=== PATIENT | male | born 1950 | race Caucasian/White ===

== ENCOUNTER → 2017-10-26 07:46 | Outpatient (CLI) | payer MEDICARE, SELFPAY ==
--- NOTE | 2017-10-26 07:47 | CT_ITS ---
STUDY: CT LEFT SHOULDER REASON FOR EXAM: Male, 67 years old. Left-sided clavicular pain following a recent fall. RADIATION DOSAGE (If Supplied By Facility): CTDIvol = ( 27.8 ) mGy, DLP = ( 821.48 ) mGycm TECHNIQUE: The patient was scanned in a multi detector CT scanner. High resolution transaxial imaging was performed without the administration of intravenous contrast material. Sagittal and coronal images were reconstructed. Individualized dose optimization techniques were used for this CT. COMPARISON: None. FINDINGS: There is moderate osteoarthritis, with moderate articular joint space narrowing and moderate osteoarthritic spurring. There is evidence of a soft tissue mass measuring 4 cm x 3.6 cm at the level of the glenohumeral joint with evidence of bony destruction. There is a soft tissue mass in the anterior superior aspect of the scapula causing erosion. This may represent a metastatic deposit or plasmocytoma. A similar-appearing soft tissue mass is seen along the inferior aspect of the left scapula in the region of the spine. There is also evidence of a 1.2 cm cystic change in the lateral portion of the left clavicle. There is a 1.9 cm x 1.5 cm lucency in the superior medial anterior aspect of the proximal humeral metaphysis. This may represent either a bony cyst or possible lytic lesion. There is also evidence of a 2.3 cm x 1.3 cm x 1.7 cm soft tissue density within the medulla of the proximal diaphyseal shaft of the left humerus. There is a endosteal erosion along the medial aspect. A neoplastic process should be ruled out. Normal coracoid process. Nondisplaced fracture along the medial third of the left clavicle. There is erosion of the cortical bone with a soft tissue mass within the a pathological fracture should be ruled out. There is moderate osteoarthritis with articular joint space narrowing and with osteoarthritic spurring. There is a Type II morphology (curved), with a neutral orientation. CT/Extremity Upper without Contra IMPRESSION: Multiple findings as described. Multiple myeloma or metastatic disease should be ruled out. Correlation with a total body bone scan is recommended. Electronically Signed: Luis Cutler MD at 10:18 EST Tel [phone], Service support ,
--- NOTE | 2017-10-26 07:50 | CT_ITS ---
STUDY: CT LEFT SHOULDER REASON FOR EXAM: Male, 67 years old. Left-sided clavicular pain following a recent fall. RADIATION DOSAGE (If Supplied By Facility): CTDIvol = ( 27.8 ) mGy, DLP = ( 821.48 ) mGycm TECHNIQUE: The patient was scanned in a multi detector CT scanner. High resolution transaxial imaging was performed without the administration of intravenous contrast material. Sagittal and coronal images were reconstructed. Individualized dose optimization techniques were used for this CT. COMPARISON: None. FINDINGS: There is moderate osteoarthritis, with moderate articular joint space narrowing and moderate osteoarthritic spurring. There is evidence of a soft tissue mass measuring 4 cm x 3.6 cm at the level of the glenohumeral joint with evidence of bony destruction. There is a soft tissue mass in the anterior superior aspect of the scapula causing erosion. This may represent a metastatic deposit or plasmocytoma. A similar-appearing soft tissue mass is seen along the inferior aspect of the left scapula in the region of the spine. There is also evidence of a 1.2 cm cystic change in the lateral portion of the left clavicle. There is a 1.9 cm x 1.5 cm lucency in the superior medial anterior aspect of the proximal humeral metaphysis. This may represent either a bony cyst or possible lytic lesion. There is also evidence of a 2.3 cm x 1.3 cm x 1.7 cm soft tissue density within the medulla of the proximal diaphyseal shaft of the left humerus. There is a endosteal erosion along the medial aspect. A neoplastic process should be ruled out. Normal coracoid process. Nondisplaced fracture along the medial third of the left clavicle. There is erosion of the cortical bone with a soft tissue mass within the a pathological fracture should be ruled out. There is moderate osteoarthritis with articular joint space narrowing and with osteoarthritic spurring. There is a Type II morphology (curved), with a neutral orientation. CT/Coronals Sag Multi Obl 3-D Rec IMPRESSION: Multiple findings as described. Multiple myeloma or metastatic disease should be ruled out. Correlation with a total body bone scan is recommended. Electronically Signed: Luis Cutler MD at 10:18 EST Tel [phone], Service support ,
== END ==
PROVIDERS: Family Provider Family Medicine; PCP Family Medicine; Visit Provider Orthopaedic Surgery
DX: S42.123A Displaced fracture of acromial process, unspecified shoulder, initial encounter for closed fracture (principal); S42.001A Fracture of unspecified part of right clavicle, initial encounter for closed fracture
CPT/HCPCS: 73200; 76377

== ENCOUNTER → 2017-11-03 07:48 | Outpatient (CLI) | payer MEDICARE, SELFPAY ==
--- NOTE | 2017-11-03 07:50 | NM_ITS ---
CLINICAL: 67-year-old male with reported history of recent traumatic fall and suspected pathologic fracture of the left clavicle. WHOLE BODY 99m Tc MDP RADIONUCLIDE BONE SCINTIGRAPHY COMPARISON: CT of the left shoulder report 10/26/2017, previous whole-body bone scintigraphy study dated 12/17/2015 FINDINGS: Following the intravenous administration of 27.3 mCi of 99m Tc MDP, whole body bone images reveal: 1. Increased radiopharmaceutical concentration is currently identified in the left proximal-mid clavicle, the mid sternum, the left proximal humeral metaphysis, multiple right lateral and posterior ribs, the left posterior 12th rib. 2. Enhanced tracer concentration is visualized in the left wrist, the acromioclavicular and sternoclavicular compartments of the right shoulder, lower cervical spine posteriorly in the midline, the 11th thoracic vertebra posteriorly on the right, third lumbar vertebra posteriorly on the right, fifth lumbar vertebra posteriorly on the left and right, the left knee. 3. The remaining skeletal structures are scintigraphically unremarkable with normal-appearing renal images and urinary bladder activity identified. An increase in uptake is identified in the tibial and femoral components of the presumably asymptomatic right knee arthroplasty most consistent with normal postsurgical change. NM/Bone Scan Whole Body IMPRESSION: 1. The increase in radiopharmaceutical concentration identified in the left proximal-mid clavicle, midsternum, left proximal humeral metaphysis, multiple right and single left chest wall-contiguous to ribs is consistent with trauma-fracture and potential neoplastic infiltration. 2. Degenerative arthritis appears expressed in the left wrist, right shoulder, cervical, thoracic and lumbar spine, the left knee. 3. Overall compared to the previous whole body bone scintigraphy study dated 12/17/2015, the newly identified foci of increased radiopharmaceutical concentration noted in the left clavicle, left proximal humerus, the mid sternum, bilateral ribs likely represent components of trauma-fracture (in the setting of recent traumatic fall) with potential complicating neoplasm (pathologic fracture) a diagnostic consideration. Electronically Signed: Wilner Thompson DO at 10:04 EST Tel , Service support ,
== END ==
PROVIDERS: Family Provider Family Medicine; PCP Family Medicine; Visit Provider Family Medicine
DX: M89.9 Disorder of bone, unspecified (principal)
CPT/HCPCS: 78306

== ENCOUNTER → 2018-05-25 14:21 | Outpatient (CLI) | payer MEDICARE, SELFPAY | LOC: LAB 14:40 → LABSPEC 14:41 | PROVIDERS: Family Provider Family Medicine; PCP Family Medicine; Visit Provider Dentist Oral and Maxillofacial Surgery | DX: Z79.899 Other long term (current) drug therapy (principal) | CPT/HCPCS: 87070; 87075; 87077; 87186; 87205 ==

== ENCOUNTER 2018-09-27 07:00 | Outpatient (RCR) | payer MEDICARE, SELFPAY ==
--- NOTE | 2018-07-23 08:21 | HP.PTEVAL_ITS ---
Patient's Visit Information RONNIE YARBROUGH is a 68 year old M referred to Physical Therapy by SHERRY MART with a diagnosis of Multiple myoloma, spinal stenosis. Date of Evaluation: 07/12/18 Physical Therapist: Chuck Veliz - Visit Plan Frequency: 2-3x /Week Duration: 4-6 Weeks Plan: Verbal OK to per supervising PT for general strengthening and balance training. - Subjective Subjective: Pt. is here today for his initial evaluation with diagnosis of lumbar spine OA and multiple myeloma. Pt. has a history of 2 lumbar fusions L2- L4 and cervical spinal fusion C3-C4. Most recent was lumbar in 2008. Pt. is now recovering from multiple myeloma with recent stem cell treatment requiring a 20day stay in hospital. Pt. reports having increased weakness since getting out of hospital ~2 weeks ago. He has been having increased LBP since hosital stay. Pt. denies N/T in either LE. He has experienced a fall since DC form hospital. Pt. does not use an AD, but reports having balance issues. Pt. has not been able to complete many house hold chores due to fatigue. He is hopeful to increase strength/stability to increase safety with gait and get back to recreational exercises and community activities. - Pain lumbar spine Pain Intensity (Out of 10): 3 Pain Intensity Range: 1, 6 - Objective POSTURE: Pt. has FH posture, rounded shoulders, decreased lumbar lordosis and wide RUPAL. PALPATION: Pt. has tenderness throughout bilateral lumbar erector spinea. Pt. has no pain throughout bilateral LEs. NEURO: Pt. has normal se nsation throughout bilateral LEs. Pt. has 2+ bilateral DTR achilles and patella. Pt. is able to rise on heels and toes without marked weakness, but does require increased balance aid to maintain stability. ROM: lumbar spine: flexion min/nil loss, ext mod loss icnrease NW, SB min/mod loss increase NW, rotation min loss bilat increase NW. HS length- 75% bilaterally. MMT: RLE- ankle PF 4+/5, DF 4/5; knee- ext 4/5, flexion 4/5; hip- flexion 4/5, abd 4/5, ext 4/5. LLE- ankle PF 4+/5, DF 4/5; knee- ext 4/5, flexion 4/5; hip- flexion 4/5, abd 4/5, ext 4/5. Core poor+. GAIT: Pt. ambulates with cane, but has wide RUPAL, bilateral hip ER, he tends to reach out for rodriguez when available and has decreased tempo. Pt. is able to complete stairs, but requires BHR and increased time to complete. Pt. has signs of functional weakness with descending. - Balance Scores Functional Gait Assessment Score: 18 % Disability: 40.0000 - Goals Goal 1:: Pt. to be I with HEP. Goal Time Frame: 4-6 Weeks Goal 2:: Pt. to have increased BLE and core strength by 1/2 grade to increase stability with all functional mobility. Goal Time Frame: 4-6 Weeks Goal 3:: Pt. to ambulate unlimited distances without AD allowing for increase increased community mobility. Goal Time Frame: 4-6 Weeks Goal 4:: Pt. to ambulate without increase in LBP allowing for increased toleranc e to all functional mobility. Goal Time Frame: 4-6 Weeks Goal 5:: Pt. to negotiate 1 flight of steps with 1 HR with reciprocal pattern. Goal Time Frame: 4-6 Weeks Goal 6:: Pt. to resume gym exercises without increase in symptoms. Goal Time Frame: 4-6 Weeks - Rehabilitation Potential Physical Therapy Diagnosis: Pt. presents with generalized weakness after sustaining several weeks in hospital with cancer treatments. Pt. also has a his tory of LBP with multiple surgies. He would benefit from PT to increase BLE and core strength to increase stability with all functional mobility and gait. Rehabilitation Potential: Good - Anticipated Interventions Patient/Client Instruction: Educate patient on: Condition, Plan of Care, Risk Factors, Benefits of Fitness Program For the Purpose of:: To improve decision making, To facilitate caregiver knowledge, To improve self management, To prevent re-injury, To improve ability to perform tasks related to life management, To improve tolerance to ADL's Therapeutic Exercise to Include: Strength training, Power training, Endurance training, Balance training, Coordination, Postural training, Flexibilty training, Gait and locomotor training, Passive ROM, Active ROM, Dynamic Lumbar Stabilization For the Purpose of:: To decrease pain, To increase ROM, To improve nutrient delivery to tissue, To increase oxygenation perfusion, To improve muscle performance and motor function, To improve gait and locomotor functions, To improve health of tissue, To decrease soft tissue restriction, To increase flexibility/ROM, To improve endurance, To improve balance, To improve safety with gait Thank you for the opportunity to evaluate your patient. For Medicare and Medicare HMO plans, please review the plan of care and approve it. It will need to be FAXED BACK to us at [phone] for Medicare purposes. Please let me know if there are questions or concerns regarding this plan of care. Physician Signature: Date:
--- NOTE | 2018-08-23 08:32 | HP.PTREVAL ---
SHERRY MART, It has been my pleasure to treat RONNIE YARBROUGH over the last 10 visits for Multiple myoloma, spinal stenosis. Please see the progress note below for an update on the physical therapy plan of care! Subjective: Pt. reports no new issues. I really think I am getting a lot better. Pt. reports not using AD with gait any more. each day I get better and better.' Pt. was able to out and chop fire wood ove the weekend for a little bit before high levels of fatigue. Objective/Function: Pt. contiues to progess very well with balance, stability and strength. pt. has had no falls since starting PT. Pt. is a very mars working. MMT- RLE- ankle 5/5 throughot; knee- ext 5-/5, flexion 5-/5; hip- flexion 4+/5, abd 4+/5, ext 4+/5. LLE-ankle 5/5 throughot; knee- ext 5-/5, flexion 5-/5; hip- flexion 4+/5, abd 4+/5, ext 4+/5. Core strength- fair-. gait- Pt. is able to ambulate witout AD now. Pt. has normal step length, with slight fwrd flexion. Pt. is able to correct posture with VCing. Pt. is negotiating steps with reciprocal pattern with use of 1 HR without issues. FGA- - increased difficulty with narrow RUPAL. STAIRS: PT. is able to negotiate with 1 HR with reciprocal pattern without LOB, but continues to ahve higher levels of fatigue Plan Plan: Cont. with current POC. FOcus on core stability/balance and progression of endurance. Pt. would benefit from continued PT. to work on the above limitations. Goals Goal 1:: Pt. to be I with HEP. Goal Time Frame: 4-6 Weeks Goal Progress: Goal Met Goal 2:: Pt. to have increased BLE and core strength by 1/2 grade to increase stability with all functional mobility. Goal Time Frame: 4-6 Weeks Goal Progress: Progressing Goal 3:: Pt. to ambulate unlimited distances without AD allowing for increase increased community mobility. Goal Time Frame: 4-6 Weeks Goal Progress: Progressing Goal 4:: Pt. to ambulate without increase in LBP allowing for increased tolerance to all functional mobility. Goal Time Frame: 4-6 Weeks Goal Progress: Progressing Goal 5:: Pt. to negotiate 1 flight of steps with 1 HR with reciprocal pattern. Goal Time Frame: 4-6 Weeks Goal Progress: Goal Met Goal 6:: Pt. to resume gym exercises without increase in symptoms. Goal Time Frame: 4-6 Weeks Goal Progress: Progressing Anticipated Interventions Patient/Client Instruction: Educate patient on: Condition, Plan of Care, Risk Factors, Benefits of Fitness Program For the Purpose of:: To improve decision making, To facilitate caregiver knowledge, To improve self management, To prevent re-injury, To improve ability to perform tasks related to life management, To improve tolerance to ADL's Therapeutic Exercise to Include: Strength training, Power training, Endurance training, Balance training, Coordination, Postural training, Flexibilty training, Gait and locomotor training, Passive ROM, Active ROM, Dynamic Lumbar Stabilization For the Purpose of:: To decrease pain, To increase ROM, To improve nutrient delivery to tissue, To increase oxygenation perfusion, To improve muscle performance and motor function, To improve gait and locomotor functions, To improve health of tissue, To decrease soft tissue restriction, To increase flexibility/ROM, To improve endurance, To improve balance, To improve safety with gait Please do not hesitate to contact me at [phone] by phone or if you have questions or concerns regarding this new plan of care! Sincerely, Chuck Veliz
--- NOTE | 2018-09-27 08:36 | HP.PTREVAL ---
[facility]ERRY MART, It has been my pleasure to treat RONNIE YARBROUGH over the last 16 visits for Multiple myoloma, spinal stenosis. Please see the progress note below for an update on the physical therapy plan of care! Subjective: Pt. arrives today with reports of slight increased in low back pain. I am not sure why. He reports no new changes to activities at home. Pt. does have some pain in Left leg this date. Objective/Function: Pt. tolerated all Pt without adverse reaction. Pt. is back to all functional activities with minmal issues. He does have some pain and occassional leg pain, but with rest is able to manage. Pt. is to continue with HEP as able. MMT: BLE 5-/5 throughout. Core strength- fair. GAIT: slight flexed posture. minimal lateral postural sway. STAIRS: 2 flights with reciprocal pattern without LOB or presence of functional weakness. Plan Plan: Pt. is to trial exercises on own at this point in time and follow up with PT if needed with in 2-3 weeks. If I do not hear from him I will DC his case back to physician. Goals Goal 1:: Pt. to be I with HEP. Goal Time Frame: 4-6 Weeks Goal Progress: Goal Met Goal 2:: Pt. to have increased BLE and core strength by 1/2 grade to increase stability with all functional mobility. Goal Time Frame: 4-6 Weeks Goal Progress: Goal Met Goal 3:: Pt. to ambulate unlimited distances without AD allowing for increase increased community mobility. Goal Time Frame: 4-6 Weeks Goal Progress: Goal Met Goal 4:: Pt. to ambulate without increase in LBP allowing for increased tolerance to all functional mobility. Goal Time Frame: 4-6 Weeks Goal Progress: Progressing Goal 5:: Pt. to negotiate 1 flight of steps with 1 HR with reciprocal pattern. Goal Time Frame: 4-6 Weeks Goal Progress: Goal Met Goal 6:: Pt. to resume gym exercises without increase in symptoms. Goal Time Frame: 4-6 Weeks Goal Progress: Goal Met Anticipated Interventions Patient/Client Instruction: Educate patient on: Condition, Plan of Care, Risk Factors, Benefits of Fitness Program For the Purpose of:: To improve decision making, To facilitate caregiver knowledge, To improve self management, To prevent re-injury, To improve ability to perform tasks related to life management, To improve tolerance to ADL's Therapeutic Exercise to Include: Strength training, Power training, Endurance training, Balance training, Coordination, Postural training, Flexibilty training, Gait and locomotor training, Passive ROM, Active ROM, Dynamic Lumbar Stabilization For the Purpose of:: To decrease pain, To increase ROM, To improve nutrient delivery to tissue, To increase oxygenation perfusion, To improve muscle performance and motor function, To improve gait and locomotor functions, To improve health of tissue, To decrease soft tissue restriction, To increase flexibility/ROM, To improve endurance, To improve balance, To improve safety with gait Please do not hesitate to contact me at [phone] by phone or if you have questions or concerns regarding this new plan of care! Sincerely, Chuck Veliz DPT
--- NOTE | 2018-12-18 09:40 | HP.PT.NRP ---
HP - Discharge Summary (1) - Patient Information RONNIE YARBROUGH was seen in my office for initial evaluation on 07/12/18. The following Plan of Care was established for this patient: Initial Frequency: 2-3x /Week Initial Duration: 4-6 Weeks - Anticipated Interventions Patient/Client Instruction: Educate patient on: Condition, Plan of Care, Risk Factors, Benefits of Fitness Program For the Purpose of:: To improve decision making, To facilitate caregiver knowledge, To improve self management, To prevent re-injury, To improve ability to perform tasks related to life management, To improve tolerance to ADL's Therapeutic Exercise to Include: Strength training, Power training, Endurance training, Balance training, Coordination, Postural training, Flexibilty training, Gait and locomotor training, Passive ROM, Active ROM, Dynamic Lumbar Stabilization For the Purpose of:: To decrease pain, To increase ROM, To improve nutrient delivery to tissue, To increase oxygenation perfusion, To improve muscle performance and motor function, To improve gait and locomotor functions, To improve health of tissue, To decrease soft tissue restriction, To increase flexibility/ROM, To improve endurance, To improve balance, To improve safety with gait This patient was last seen in our office 09/27/18. Pertinent comments regarding their Physical therapy will appear below: Pt. was treated for general debility and back pain after being in hospital for a few week recovering from cancer treatments. Pt. progressed very well. His back pain was improving. He had improved core stability and general strength. Pt. was to follow up with PT after deoing HEP on own for a few weeks. Pt. has not been seen in several weeks and will be DC from PT at this point in time. At this point I will be discontinuing this patient from physical therapy. I would be happy to see this patient again in the future if found appropriate by the physician. Thank you! Chuck Veliz, SOMMER
== END 2018-09-27 19:00 | disposition home or self-care (01) ==
LOC: PT 07:00
PROVIDERS: Family Provider Family Medicine; PCP Family Medicine
DX: C90.00 Multiple myeloma not having achieved remission (principal); M47.9 Spondylosis, unspecified
CPT/HCPCS: 97110; 97162

== ENCOUNTER → 2019-01-02 | Outpatient (CLI) | payer MEDICARE, SELFPAY ==
--- NOTE | 2019-01-02 09:36 | VDLE_ITS ---
Reason For Study: LEG SWELLING RIGHT LEFT CFV is compressible, spontaneous, phasic, GSV is normal. competent and demonstrates normal CFV is compressible, spontaneous, phasic, augmentation. competent, and demonstrates normal GSV is normal. augmentation. FV is compressible, spontaneous, phasic, FV is compressible, spontaneous, phasic, competent and demonstrates normal competent and demonstrates normal augmentation. augmentation. POP V is compressible, spontaneous, phasic, POP V is compressible, spontaneous, phasic, competent and demonstrates normal competent and demonstrates normal augmentation. augmentation. T/P Trunk is compressible. T/P Trunk is compressible. PTV is compressible. PTV is compressible. RT PerV is compressible. LT PerV is compressible. Procedure Exam performed in department. A preliminary report was called and/or faxed to Dr. Goldstein. Interpretation Summary Deep veins of the lower extremities are bilaterally patent and compressible segmentally. There is no evidence of deep vein thrombosis on either side. Valvular competence appears intact within the proximal deep venous systems bilaterally. The greater saphenous veins appear bilaterally patent and compressible segmentally. Ordering Physician: Arianna Goldstein Referring Physician: Arianna Goldstein Performed By: Chrissy Gray RVT
== END | disposition home or self-care (01) ==
LOC: CVS 09:24
PROVIDERS: Family Provider Family Medicine; PCP Family Medicine; Referring Provider Internal Medicine Hematology & Oncology; Visit Provider Internal Medicine Hematology & Oncology
DX: M79.89 Other specified soft tissue disorders (principal); I82.402 Acute embolism and thrombosis of unspecified deep veins of left lower extremity
CPT/HCPCS: 93970

== ENCOUNTER 2019-04-04 09:00 | Outpatient (RCR) | payer MEDICARE, SELFPAY ==
[2017-10-11 09:06] VITALS: BMI 34.4
--- NOTE | 2019-01-02 15:58 | HP.PTEVAL ---
Patient's Visit Information RONNIE YARBROUGH is a 68 year old M referred to Physical Therapy by Amy Cabrera NP-C with a diagnosis of S/P LUMBAR FUSION. Date of Evaluation: 01/02/19 Physical Therapist: Arnold Fofana, PT, Cert MDT, OCS - Visit Plan Frequency: 2x /Week Duration: 4 Weeks Plan: RECOVERING FROM MULTIPLE MYELOMA. S/P REMOVAL OF INSTRUMENTATION,THEN REVISION FUSION 12/10/18. PT POSTURAL EX'S,BLE STRENGTHENING,DLS,LE FLEXABLITY AND STRENGTHENING- HIPS,ENDURANCE GAIT PROGARM - Subjective Findings: This 68 y/o male presents to physical therapy with S/P lumbar fusion. Patient underwent s/p removal of segmental fixation,then reinstrumentation and segmental fixation and L2-S1 on 12/10/[address] Enrique Sue at [facility]. Patient d/c next day with Lumbar Brace and FWW. Patient has been walking at home with fww. Patient recently recovering from Multiple Myeloma last year required extensive treatment and Rehab. Patient has mild pain pain. Denies parathesia/tingling. Patient has edema feet ankles. Denies parathesia/tingling. Patient has difficulty with ADLS' bathing ,lower extremity dressing. Patient has limited moblity with walking ,standing impairs ADL's housework tasks.patient has extreme difficulty with stirs. Patient seen 12/27/18 recommended PT advance ROM in 3weeks,wean barce as eyad. Patient surgery impairs QOL and function. SOCAIL: . 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 GAIT: ambulates with fww mild foward posture reciprocal pattern. NEURO: denies parathesai/tingling,reflexes L3-4,L4-5,L5-S1 1/3. INSCION: well approximate. EDEMA: 2+ bilateral pitted. MMT: quads/hams 4-/5,hip 3-/5,hip abd 3-/5 ,ankle 4-/5. LUMBAR ROM: flexion mod loss,extension severe,. FLEXABLITY: hams min tight - Goals Goal 1:: Independant with HEP. Goal Time Frame: 6-8 Weeks Goal 2:: Ambulate community distance without device with improved gait pattern . Goal Time Frame: 6-8 Weeks Goal 3:: Patient increase strength hip 4-/5,quads/hams 4/5 to improve function and ADL'S Goal Time Frame: 6-8 Weeks Goal 4:: Patient to improve back owestry score by 5 points or greater to improve function and QOL Goal Time Frame: 6-8 Weeks Goal 5:: Patient to improve lumbar ROM for function of recovery. Goal Time Frame: 6-8 Weeks - Rehabilitation Potential Physical Therapy Diagnosis: This 68 y/o male presents to physical therapy with s/p lumbar fusion with weakness legs/hips,decrease gait ,balance endurance ,ROM impairs ADLS' and function,thus benifit from skilled PT. Rehabilitation Potential: Good - Anticipated Interventions Patient/Client Instruction: Educate patient on: Condition For the Purpose of:: To decrease pain, To increase ROM, To improve muscle performance and motor function, To improve ability to perform ADL's, To increase tolerance to activity/condition/position, To improve performance and independence with ADL's, To improve ability of physical actions for home/community/work/leisure, To improve gait and locomotor functions, To increase flexibility/ROM, To improve endurance, To improve balance, To assume or resume ADL's, To improve ability to perform tasks related to life management Therapeutic Exercise to Include: Strength training, Body mechanics, Postural training, Flexibilty training, Gait and locomotor training, Dynamic Lumbar Stabilization Comment: BLE For the Purpose of:: To decrease pain, To increase ROM, To improve muscle performance and motor function, To improve ability to perform ADL's, To increase tolerance to activity/condition/position, To improve performance and independence with ADL's, To improve ability of physical actions for home/community/work/leisure, To improve health of tissue, To decrease soft tissue restriction, To increase flexibility/ROM, To reduce risk of recurrence, To improve ability to perform tasks related to life management Thank you for the opportunity to evaluate your patient. For Medicare and Medicare HMO plans, please review the plan of care and approve it. It will need to be FAXED BACK to us at [phone] for Medicare purposes. For Medicare only, by signing this I certify the plan of care. Please let me know if there are questions or concerns regarding this plan of care. Physician Signature: Date:
--- NOTE | 2019-01-23 15:59 | HP.PTREVAL_ITS ---
Amy Cabrera, STRAP FOLDING MACHINE OPERATOR-C, It has been my pleasure to treat RONNIE YARBROUGH over the last 10 visits for S/P LUMBAR FUSION. Please see the progress note below for an update on the physical therapy plan of care! Subjective: Patient did alot at home with yardwork caused my back /buttuck pain. Dont use walker,brace,cane. Denies parathesia/tingling. Objective/Function: POSTURE: mod foward posture. GAIT: ambulates with reciprocal pattern foward posture reciprocal pattern. NEURO: denies parathesia/tingling. MMT: quads/hams 4-/5,hip right 3/5 left 3+/5,ankle 4/5. LUMBAR ROM: flexion mod ,extension severe loss. FLEXABLITY: hams min/mod tight Plan Plan: RECOVERING FROM MULTIPLE MYELOMA. S/P REMOVAL OF INSTRUMENTATION,THEN REVISION FUSION 12/10/18. CONT WITH POC INTERVENTIONS 3XWEEK/3 WEEKS. PT POSTURAL EX'S,BLE STRENGTHENING,DLS,LE FLEXIBILITY AND STRENGTHENING- HIPS,ENDURANCE GAIT PROGRAM Goals Goal 1:: Independant with HEP. Goal Time Frame: 6-8 Weeks Goal Progress: Progressing Goal 2:: Ambulate community distance without device with improved gait pattern . Goal Time Frame: 6-8 Weeks Goal Progress: Progressing Goal 3:: Patient increase strength hip 4-/5,quads/hams 4/5 to improve function and ADL'S Goal Time Frame: 6-8 Weeks Goal Progress: Progressing Goal 4:: Patient to improve back owestry score by 5 points or greater to improve function and QOL Goal Time Frame: 6-8 Weeks Goal Progress: Progressing Goal 5:: Patient to improve lumbar ROM for function of recovery. Goal Time Frame: 6-8 Weeks Goal Progress: Progressing Anticipated Interventions Patient/Client Instruction: Educate patient on: Condition For the Purpose of:: To decrease pain, To increase ROM, To improve muscle performance and motor function, To improve ability to perform ADL's, To increase tolerance to activity/condition/position, To improve performance and independence with ADL's, To improve ability of physical actions for home/community/work/leisure, To improve gait and locomotor functions, To increase flexibility/ROM, To improve endurance, To improve balance, To assume or resume ADL's, To improve ability to perform tasks related to life management Therapeutic Exercise to Include: Strength training, Body mechanics, Postural training, Flexibilty training, Gait and locomotor training, Dynamic Lumbar Stabilization Comment: BLE For the Purpose of:: To decrease pain, To increase ROM, To improve muscle performance and motor function, To improve ability to perform ADL's, To increase tolerance to activity/condition/position, To improve performance and independ ence with ADL's, To improve ability of physical actions for home/community/work/leisure, To improve health of tissue, To decrease soft tissue restriction, To increase flexibility/ROM, To reduce risk of recurrence, To improve ability to perform tasks related to life management Please do not hesitate to contact me at [phone] by phone or if you have questions or concerns regarding this new plan of care! Sincerely, Arnold Fofana, PT, Cert MDT, OCS
--- NOTE | 2019-02-20 08:58 | HP.PTREVAL ---
Amy Cabrera, CREDIT COLLECTIONS SPECIALIST-C, It has been my pleasure to treat RONNIE YARBROUGH over the last 19 visits for S/P LUMBAR FUSION. Please see the progress note below for an update on the physical therapy plan of care! Subjective: Doing well ..progressing increasing strength for ADL'S and housework tasks. Objective/Function: POSTURE: MILD FOWARD POSTURE. GAIT: MILD FOWARD POSTURE DECREASE STEP LENGTH RECIPROCAL PATTERN. MMT: quads/hams 4-/5,hip flexion /abd 3+/5,ankle 4/5. FLEXABILITY: hams min Plan Plan: RECOVERING FROM MULTIPLE MYELOMA. S/P REMOVAL OF INSTRUMENTATION,THEN REVISION FUSION 12/10/18. CONT WITH POC INTERVENTIONS 2XWEEK/4 WEEKS. PT POSTURAL EX'S,BLE STRENGTHENING,DLS,LE FLEXIBILITY AND STRENGTHENING- HIPS,ENDURANCE GAIT PROGRAM Goals Goal 1:: Independant with HEP. Goal Time Frame: 6-8 Weeks Goal Progress: Progressing Goal 2:: Ambulate community distance without device with improved gait pattern . Goal Time Frame: 6-8 Weeks Goal Progress: Progressing Goal 3:: Patient increase strength hip 4-/5,quads/hams 4/5 to improve function and ADL'S Goal Time Frame: 6-8 Weeks Goal Progress: Progressing Goal 4:: Patient to improve back owestry score by 5 points or greater to improve function and QOL Goal Time Frame: 6-8 Weeks Goal Progress: Progressing Goal 5:: Patient to improve lumbar ROM for function of recovery. Goal Time Frame: 6-8 Weeks Goal Progress: Progressing Anticipated Interventions Patient/Client Instruction: Educate patient on: Condition For the Purpose of:: To decrease pain, To increase ROM, To improve muscle performance and motor function, To improve ability to perform ADL's, To increase tolerance to activity/condition/position, To improve performance and independence with ADL's, To improve ability of physical actions for home/community/work/leisure, To improve gait and locomotor functions, To increase flexibility/ROM, To improve endurance, To improve balance, To assume or resume ADL's, To improve ability to perform tasks related to life management Therapeutic Exercise to Include: Strength training, Body mechanics, Postural training, Flexibilty training, Gait and locomotor training, Dynamic Lumbar Stabilization Comment: BLE For the Purpose of:: To decrease pain, To increase ROM, To improve muscle performance and motor function, To improve ability to perform ADL's, To increase tolerance to activity/condition/position, To improve performance and independence with ADL's, To improve ability of physical actions for home/community/work/leisure, To improve health of tissue, To decrease soft tissue restriction, To increase flexibility/ROM, To reduce risk of recurrence, To improve ability to perform tasks related to life management Please do not hesitate to contact me at [phone] by phone or if you have questions or concerns regarding this new plan of care! Sincerely, Arnold Fofana, PT, Cert MDT, OCS
--- NOTE | 2019-04-04 09:28 | HP.PTDCSUM ---
HP - PT D/C Summary It has been my pleasure to treat RONNIE YARBROUGH under orders from Amy Cabrera, TARA-C, for the diagnosis of S/P LUMBAR FUSION for a total of 26 visit(s). Discharge Date: 04/04/19 Please see the following information for a summary of their discharge status. - Subjective Subjective: Doing well .Return to all ADL'S and housework tasks. - Pain Bilateral Back Pain Intensity (Out of 10): 0 Right Hip Pain Intensity (Out of 10): 0 - Overall Improvement % Improvement: 85 - Objective Objective/Function: POSTURE: mild foward posture. GAIT: mild foward reciprocal pattern. MMT: quads/hams 4/5 ,hip flexion 4-/5,ankle 5/5. LUMBAR ROM: flexion min loss ,extension mod loss,side glides min/mod loss. -SLR - Goals Goal 1:: Independant with HEP. Goal Progress: Goal Met Goal 2:: Ambulate community distance without device with improved gait pattern . Goal Progress: Goal Met Goal 3:: Patient increase strength hip 4-/5,quads/hams 4/5 to improve function and ADL'S Goal Progress: Goal Met Goal 4:: Patient to improve back owestry score by 5 points or greater to improve function and QOL Goal Progress: Progressing Goal 5:: Patient to improve lumbar ROM for function of recovery. Goal Progress: Progressing - Plan Plan: D/C TO HEP - D/C Information Discharge Comments: HEP If there are questions or concerns regarding this patient's physical therapy, please feel free to call me at [phone]. Thank you for the referral of this patient. Sincerely, Arnold Fofana, PT, Cert MDT, OCS
== END 2019-04-04 19:00 | disposition home or self-care (01) ==
LOC: PT 09:00
PROVIDERS: Family Provider Family Medicine; PCP Family Medicine; Visit Provider Nurse Practitioner
DX: Z98.1 Arthrodesis status (principal)
CPT/HCPCS: 97110; 97162

== ENCOUNTER → 2019-06-12 | Outpatient (CLI) | payer MEDICARE, SELFPAY ==
--- NOTE | 2019-06-12 08:49 | RAD_ITS ---
STUDY: X-RAY - RIGHT HAND REASON FOR EXAM: Male, 68 years old. Pain, stiffness TECHNIQUE: 3 view(s) of the hand. COMPARISON: None. FINDINGS: Normal radiocarpal articulation. Normal distal radioulnar joint. Normal visualized carpal bones. Normal carpal articulations Normal carpometacarpal articulation of the thumb. Normal second through fifth carpometacarpal joints. Normal metacarpi. Normal metacarpophalangeal joint of the thumb. There is degenerative arthrosis of the interphalangeal joint of the thumb with articular joint space narrowing. Normal proximal and distal phalanges of the thumb. Degenerative changes in the second and third metacarpophalangeal joints with chondrocalcinosis. Normal metacarpophalangeal joints of the fourth and fifth fingers. Normal proximal and distal interphalangeal joints of the second through fifth fingers. Normal phalanges of the second through fifth fingers. The soft tissue structures are unremarkable. RAD/Hand Min 3 Views IMPRESSION: Degenerative changes as described, no demonstrated fracture or suspicious osseous lesion Electronically Signed: Zach Marks MD at 17:47 EDT , Service support ,
--- NOTE | 2019-06-12 08:49 | RAD_ITS ---
STUDY: X-RAY - LEFT HAND REASON FOR EXAM: Male, 68 years old. Pain, stiffness TECHNIQUE: 3 view(s) of the hand. COMPARISON: None. FINDINGS: There is joint space narrowing of the radiocarpal articulation consistent with degenerative arthrosis. Normal distal radioulnar joint. Normal visualized carpal bones. Normal carpal articulations There is degenerative arthrosis of the carpometacarpal (CMC) articulation of the thumb with chondrocalcinosis. Normal second through fifth carpometacarpal joints. Normal metacarpi. There is degenerative arthrosis of the metacarpophalangeal (MCP) joints. Normal interphalangeal joint of the thumb. Normal proximal and distal phalanges of the thumb. Normal metacarpophalangeal joints of the second through fifth fingers. There is diffuse articular joint space narrowing of the proximal and distal interphalangeal joints of the second through fifth fingers, but without erosive changes or periarticular soft tissue swelling. Normal phalanges of the second through fifth fingers. The soft tissue structures are unremarkable. RAD/Hand Min 3 Views IMPRESSION: Degenerative changes, no demonstrated fracture or suspicious osseous lesion Electronically Signed: Zach Marks MD at 17:47 EDT , Service support ,
[2019-06-12 10:15] LABS: Erythrocyte Sedimentation Rate 14 mm/hr (0-20)
[2019-06-12 10:16] LABS: Absolute Lymphocyte Count 0.53 X10^3/uL (0.83-4.51); Absolute Neutrophil Count 4.2 X10^3/uL (2.0-7.7); Basophil# 0.01 X10^3/uL; Basophil% 0.2 % (0-1); Eosinophil# 0.03 X10^3/uL; Eosinophils% 0.6 % (0-5); Hematocrit 38.3 % (40-54); Hemoglobin 12.1 g/dL (13.0-16.5); Lymphocyte # 0.53 X10^3/ul (4.0); Lymphocyte % 10.2 % (19-41); Mean Corp Hgb Conc 31.6 g/dL (32-36); Mean Corpuscular Hgb 29.1 pg (27.0-32.0); Mean Corpuscular Volume 92.1 fL (80-94); Mean Platelet Vol. 9.9 fl (6.2-12.0); Monocyte# 0.37 X10^3/uL; Monocyte% 7.1 % (0-10); NRBC Flagged by Analyzer 0 % (0-5); Neutrophil # 4.18 X10^3/uL (2.7-7.7); Neutrophil % 80.6 % (47-70); POSITIVE DIFFERENTIAL YES; Platelet Count 226 K/mm3 (150-450); RBC Distribution Width CV 17.8 % (11.6-14.6); RBC Distribution Width SD 58.6 fl (35.1-43.9); Red Blood Count 4.16 M/mm3 (4.6-6.2); White Blood Count 5.2 K/mm3 (4.4-11.0)
[2019-06-12 10:17] LABS: ALB/GLOB Ratio 1.1 RATIO (0.9-2.4); AST(SGOT) 7 U/L (15-37); Alanine Aminotransfer ALT/SGPT 18 U/L (16-61); Albumin, Serum 3.5 g/dL (3.2-5.0); Alkaline Phosphatase 87 U/L (45-117); Anion Gap 9 (5-15); BUN 39 mg/dL (7-18); BUN/Creat Ratio 37.1 RATIO (10-20); CRP 9.38 mg/L (0.0-3.0); Calcium,Total 9.1 mg/dL (8.5-10.1); Chloride 101 mmol/L (98-107); Creatinine, Serum 1.05 mg/dL (0.70-1.30); EST Glomerular Filtration Rate 75 mL/min (>60); Est Glom Filt Rate - Afr Amer 90 mL/min (>60); Globulin 3.3 g/dL (2.2-4.2); Glucose 169 mg/dL (74-106); Potassium 4.9 mmol/L (3.5-5.1); Protein, Total 6.8 g/dL (6.4-8.2); Rheumatoid Factor < 10.0 IU/mL (<15); Sodium Level 137 mmol/L (136-145)
[2019-06-12 10:18] LABS: Differential Indicated SCAN CRITERIA MET
[2019-06-12 11:03] LABS: Hepatitis B Surface Antibody Non-Reactive; Hepatitis B Surface Antigen Non-Reactive (Nonreactive); Hepatitis C Antibody Non-Reactive (Nonreactive)
[2019-06-16 13:43] LABS: CCP IgG Antibodies 8 units (0-19); Hepatitis B Core AB IgM Negative (Negative)
== END | disposition home or self-care (01) ==
PROVIDERS: Family Provider Family Medicine; PCP Family Medicine; Referring Provider Internal Medicine Rheumatology; Visit Provider Internal Medicine Rheumatology
DX: M06.4 Inflammatory polyarthropathy (principal); M19.041 Primary osteoarthritis, right hand; M47.812 Spondylosis without myelopathy or radiculopathy, cervical region; K21.0 Gastro-esophageal reflux disease with esophagitis; I87.2 Venous insufficiency (chronic) (peripheral); M48.061 Spinal stenosis, lumbar region without neurogenic claudication
CPT/HCPCS: 36415; 73130; 80053; 85025; 85652; 86140; 86200; 86431; 86705; 86706; 86803; 87340

== ENCOUNTER 2019-08-29 15:00 | Outpatient (RCR) | payer MEDICARE, SELFPAY ==
--- NOTE | 2019-08-19 11:45 | HP.PTEVAL_ITS ---
Patient's Visit Information RONNIE YARBROUGH is a 69 year old M referred to Physical Therapy by Harika Stanton with a diagnosis of Pain in L knee/ OA L knee. Date of Evaluation: 08/19/19 Physical Therapist: DARCY Mckay - Visit Plan Frequency: 1x/Week Duration: 3 Weeks Plan: Pt to be seen for at least 3 visits for I gym set up for B hip strength, L knee AROM, gait training with HEP - Subjective Findings: Pt reports that his L knee is bothering him. He had the R knee replaced 10 years ago and the L one needs replaced but he is not ready to do so at this time. Dr De Paz said his knee needs replaced. He did get a cortizone shot and that did help a lot. Fall he had cancer treatment and stem cell treatment and November fusion L2-S1 and he has been recovering. He has no restrictions at this point but he is really hard to put shoes and socks on and bend over. He has trouble with walking (can walk a little ways and then things get sore). He is working out here at . He would like a program to do and he will do it on his own. Stairs: he goes up one at a time with a railing. He is weak. Sit to stand: he has trouble without using his arms. - Pain L knee pain Pain Intensity (Out of 10): 4 - Objective Gait: Walks with decrease stance time on the L leg with gait. L knee AROM: -5 degree from L knee extension to 102 degrees L knee fleixon. LE MMT: L hip flex 3-/5, L knee ext 4/5, L knee flexion 4/5, L hip abd 4-/5, L hip ext 3-/5. R hip flexion 3+/5, R knee ext 4/5, R knee flexion 4/5, R hip abd 4-/5, R hip ext 3- /5. Pt is able to walk on heels and toes with some imbalance - Goals Goal 1:: I HEP/H&W program Goal Time Frame: 2 Weeks Goal 2:: Walk with more equal stance with gait Goal Time Frame: 2 Weeks Goal 3:: Increase L knee AROM to -2 degrees to 105 degrees Goal Time Frame: 2 Weeks - Rehabilitation Potential Rehabilitation Potential: Good - Anticipated Interventions Patient/Client Instruction: Educate patient on: Condition, Plan of Care For the Purpose of:: To decrease pain, To increase ROM, To increase oxygenation perfusion, To improve muscle performance and motor function, To improve ability to perform ADL's, To increase tolerance to activity/condition/position, To improve performance and independence with ADL's, To improve gait and locomotor functions, To improve health of tissue, To decrease soft tissue restriction, To increase flexibility/ROM, To improve balance Therapeutic Exercise to Include: Strength training, Flexibilty training, Gait and locomotor training, Passive ROM, Active ROM For the Purpose of:: To decrease pain, To increase ROM, To improve nutrient del venessa to tissue, To improve muscle performance and motor function, To improve ability to perform ADL's, To increase tolerance to activity/condition/position, To improve performance and independence with ADL's, To decrease level of supervision to perform tasks, To improve gait and locomotor functions Thank you for the opportunity to evaluate your patient. For Medicare and Medicare HMO plans, please review the plan of care and approve it. It will need to be FAXED BACK to us at [phone] for Medicare purposes. For Medicare only, by signing this I certify the plan of care. Please let me know if there are questions or concerns regarding this plan of care. Physician Signature: Date:
--- NOTE | 2019-08-29 15:44 | HP.PTDCSUM ---
HP - PT D/C Summary It has been my pleasure to treat RONNIE YARBROUGH under orders from Harika Stanton, for the diagnosis of Pain in L knee/ OA L knee for a total of 2 visit(s). Discharge Date: 08/29/19 Please see the following information for a summary of their discharge status. - Subjective Subjective: Pt reports that yesterday he was achy and sore all over. - Pain L knee pain Pain Intensity (Out of 10): 2 - Overall Improvement % Improvement: 10 - Objective Objective/Function: Pt was I in setting up the machines and has a paper that shows the weights and reps to get his rountine done (rountine is in ther-ex session above). - Goals Goal 1:: I HEP/H&W program Goal Progress: Goal Met Goal 2:: Walk with more equal stance with gait Goal Progress: Progressing Goal 3:: Increase L knee AROM to -2 degrees to 105 degrees Goal Progress: Progressing - Plan Plan: DC PT to I gym rountine - D/C Information Discharge Comments: DC PT to H W program If there are questions or concerns regarding this patient's physical therapy, please feel free to call me at [phone]. Thank you for the referral of this patient. Sincerely, Nataliya Currie, MPT
== END 2019-08-29 19:00 | disposition home or self-care (01) ==
LOC: PT 15:00
PROVIDERS: Family Provider Family Medicine; PCP Family Medicine; Referring Provider Physician Assistant; Visit Provider Physician Assistant
DX: M25.562 Pain in left knee (principal); M17.32 Unilateral post-traumatic osteoarthritis, left knee
CPT/HCPCS: 97110; 97161

== ENCOUNTER → 2019-09-30 08:28 | Outpatient (CLI) | payer MEDICARE, SELFPAY ==
[2017-10-11 09:06] VITALS: BMI 34.4
[2019-09-30 10:34] LABS: Absolute Neutrophil Count 2.8 X10^3/uL (2.0-7.7); Basophil# 0.02 X10^3/uL; Basophil% 0.5 % (0-1); Eosinophil# 0.29 X10^3/uL; Eosinophils% 6.7 % (0-5); Hematocrit 31.5 % (40-54); Hemoglobin 10.1 g/dL (13.0-16.5); Lymphocyte % 13.9 % (19-41); Mean Corp Hgb Conc 32.1 g/dL (32-36); Mean Corpuscular Hgb 30.5 pg (27.0-32.0); Mean Corpuscular Volume 95.2 fL (80-94); Mean Platelet Vol. 10.8 fl (6.2-12.0); Monocyte# 0.58 X10^3/uL; Monocyte% 13.4 % (0-10); NRBC Flagged by Analyzer 0 % (0-5); Neutrophil % 64.8 % (47-70); POSITIVE DIFFERENTIAL YES; Platelet Count 149 K/mm3 (150-450); RBC Distribution Width SD 59.5 fl (35.1-43.9); Red Blood Count 3.31 M/mm3 (4.6-6.2); White Blood Count 4.3 K/mm3 (4.4-11.0)
[2019-09-30 10:41] LABS: Differential Indicated SCAN CRITERIA MET
[2019-09-30 10:56] LABS: ALB/GLOB Ratio 1.1 RATIO (0.9-2.4); AST(SGOT) 24 U/L (15-37); Alanine Aminotransfer ALT/SGPT 24 U/L (16-61); Albumin, Serum 3.3 g/dL (3.2-5.0); Alkaline Phosphatase 71 U/L (45-117); Anion Gap 9 (5-15); BUN 34 mg/dL (7-18); BUN/Creat Ratio 20.2 RATIO (10-20); Calcium,Total 8.2 mg/dL (8.5-10.1); Chloride 102 mmol/L (98-107); Creatinine, Serum 1.68 mg/dL (0.70-1.30); EST Glomerular Filtration Rate 43 mL/min (>60); Est Glom Filt Rate - Afr Amer 53 mL/min (>60); Globulin 2.9 g/dL (2.2-4.2); Glucose 131 mg/dL (74-106); Potassium 4.4 mmol/L (3.5-5.1); Protein, Total 6.2 g/dL (6.4-8.2); Sodium Level 135 mmol/L (136-145)
[2019-10-01 09:54] LABS: Pathologist Review Reviewed
== END ==
PROVIDERS: Family Provider Family Medicine; PCP Family Medicine; Referring Provider Internal Medicine Rheumatology; Visit Provider Internal Medicine Rheumatology
DX: M06.4 Inflammatory polyarthropathy (principal); M19.041 Primary osteoarthritis, right hand; M47.812 Spondylosis without myelopathy or radiculopathy, cervical region; M48.061 Spinal stenosis, lumbar region without neurogenic claudication
CPT/HCPCS: 36415; 80053; 85025

== ENCOUNTER → 2019-10-28 | Outpatient (CLI) | payer MEDICARE, SELFPAY ==
[2017-10-11 09:06] VITALS: BMI 34.4
[2019-10-28 10:20] LABS: Absolute Lymphocyte Count 0.88 X10^3/uL (0.83-4.51); Absolute Neutrophil Count 4.9 X10^3/uL (2.0-7.7); Basophil# 0.05 X10^3/uL; Basophil% 0.7 % (0-1); Eosinophil# 0.19 X10^3/uL; Eosinophils% 2.7 % (0-5); Hematocrit 35.8 % (40-54); Hemoglobin 10.9 g/dL (13.0-16.5); Lymphocyte # 0.88 X10^3/ul (4.0); Lymphocyte % 12.7 % (19-41); Mean Corp Hgb Conc 30.4 g/dL (32-36); Mean Corpuscular Hgb 28.5 pg (27.0-32.0); Mean Corpuscular Volume 93.5 fL (80-94); Monocyte# 0.87 X10^3/uL; Monocyte% 12.6 % (0-10); NRBC Flagged by Analyzer 0 % (0-5); Platelet Count 208 K/mm3 (150-450); RBC Distribution Width CV 15.9 % (11.6-14.6); RBC Distribution Width SD 54.6 fl (35.1-43.9); Red Blood Count 3.83 M/mm3 (4.6-6.2); White Blood Count 6.9 K/mm3 (4.4-11.0)
[2019-10-28 10:40] LABS: AST(SGOT) 15 U/L (15-37); Alanine Aminotransfer ALT/SGPT 43 U/L (16-61); Albumin, Serum 3.5 g/dL (3.2-5.0); Alkaline Phosphatase 88 U/L (45-117); Anion Gap 5 (5-15); BUN 30 mg/dL (7-18); BUN/Creat Ratio 22.6 RATIO (10-20); Calcium,Total 9.6 mg/dL (8.5-10.1); Chloride 104 mmol/L (98-107); Creatinine, Serum 1.33 mg/dL (0.70-1.30); EST Glomerular Filtration Rate 57 mL/min (>60); Est Glom Filt Rate - Afr Amer 69 mL/min (>60); Globulin 3.6 g/dL (2.2-4.2); Glucose 103 mg/dL (74-106); Potassium 4.1 mmol/L (3.5-5.1); Protein, Total 7.1 g/dL (6.4-8.2); Sodium Level 136 mmol/L (136-145)
== END | disposition home or self-care (01) ==
LOC: MTLAB 08:32
PROVIDERS: PCP Family Medicine; Referring Provider Internal Medicine Rheumatology; Visit Provider Internal Medicine Rheumatology
DX: M06.4 Inflammatory polyarthropathy (principal); M19.041 Primary osteoarthritis, right hand; M47.812 Spondylosis without myelopathy or radiculopathy, cervical region; M48.061 Spinal stenosis, lumbar region without neurogenic claudication; K21.0 Gastro-esophageal reflux disease with esophagitis; C90.01 Multiple myeloma in remission; I10 Essential (primary) hypertension; E11.9 Type 2 diabetes mellitus without complications; E78.5 Hyperlipidemia, unspecified; I87.2 Venous insufficiency (chronic) (peripheral)
CPT/HCPCS: 36415; 80053; 85025

== ENCOUNTER → 2019-12-23 | Outpatient (CLI) | payer MEDICARE, SELFPAY ==
[2017-10-11 09:06] VITALS: BMI 34.4
[2019-12-23 12:15] LABS: Absolute Lymphocyte Count 0.79 X10^3/uL (0.83-4.51); Basophil# 0.03 X10^3/uL; Basophil% 0.7 % (0-1); Eosinophil# 0.05 X10^3/uL; Eosinophils% 1.2 % (0-5); Hematocrit 36.7 % (40-54); Hemoglobin 11.7 g/dL (13.0-16.5); Lymphocyte # 0.79 X10^3/ul (4.0); Lymphocyte % 18.6 % (19-41); Mean Corp Hgb Conc 31.9 g/dL (32-36); Mean Corpuscular Hgb 29.7 pg (27.0-32.0); Mean Corpuscular Volume 93.1 fL (80-94); Monocyte# 0.35 X10^3/uL; Monocyte% 8.3 % (0-10); NRBC Flagged by Analyzer 0 % (0-5); Neutrophil # 2.97 X10^3/uL (2.7-7.7); POSITIVE MORPHOLOGY YES; Platelet Count 127 K/mm3 (150-450); RBC Distribution Width CV 19.6 % (11.6-14.6); RBC Distribution Width SD 66.3 fl (35.1-43.9); Red Blood Count 3.94 M/mm3 (4.6-6.2); White Blood Count 4.2 K/mm3 (4.4-11.0)
[2019-12-23 12:17] LABS: Differential Indicated SCAN CRITERIA MET
[2019-12-23 12:22] LABS: ALB/GLOB Ratio 1.2 RATIO (0.9-2.4); AST(SGOT) 10 U/L (15-37); Alanine Aminotransfer ALT/SGPT 21 U/L (16-61); Albumin, Serum 3.6 g/dL (3.2-5.0); Alkaline Phosphatase 60 U/L (45-117); Anion Gap 6 (5-15); BUN 44 mg/dL (7-18); BUN/Creat Ratio 33.6 RATIO (10-20); Calcium,Total 9.3 mg/dL (8.5-10.1); Chloride 105 mmol/L (98-107); Creatinine, Serum 1.31 mg/dL (0.70-1.30); EST Glomerular Filtration Rate 58 mL/min (>60); Est Glom Filt Rate - Afr Amer 70 mL/min (>60); Glucose 166 mg/dL (74-106); Potassium 3.9 mmol/L (3.5-5.1); Protein, Total 6.6 g/dL (6.4-8.2); Sodium Level 138 mmol/L (136-145)
[2019-12-23 12:39] LABS: Anisocytosis 1+; Platelet Estimate SLT DEC (ADEQ)
== END | disposition home or self-care (01) ==
LOC: MTLAB 09:34
PROVIDERS: PCP Family Medicine; Referring Provider Internal Medicine Rheumatology; Visit Provider Internal Medicine Rheumatology
DX: M06.4 Inflammatory polyarthropathy (principal); M19.041 Primary osteoarthritis, right hand; M47.812 Spondylosis without myelopathy or radiculopathy, cervical region; M48.061 Spinal stenosis, lumbar region without neurogenic claudication; K21.0 Gastro-esophageal reflux disease with esophagitis; C90.01 Multiple myeloma in remission; I10 Essential (primary) hypertension; E11.9 Type 2 diabetes mellitus without complications; E78.5 Hyperlipidemia, unspecified; I87.2 Venous insufficiency (chronic) (peripheral)
CPT/HCPCS: 36415; 80053; 85025

== ENCOUNTER → 2020-03-10 | Outpatient (CLI) | payer MEDICARE, SELFPAY ==
[2020-03-10 09:55] LABS: Absolute Lymphocyte Count 0.73 X10^3/uL (0.83-4.51); Basophil# 0.03 X10^3/uL; Basophil% 0.7 % (0-1); Eosinophil# 0.05 X10^3/uL; Eosinophils% 1.2 % (0-5); Hematocrit 38.1 % (40-54); Hemoglobin 12.1 g/dL (13.0-16.5); Lymphocyte # 0.73 X10^3/ul (4.0); Lymphocyte % 17.1 % (19-41); Mean Corp Hgb Conc 31.8 g/dL (32-36); Mean Corpuscular Hgb 32.1 pg (27.0-32.0); Mean Corpuscular Volume 101.1 fL (80-94); Mean Platelet Vol. 9.5 fl (6.2-12.0); Monocyte# 0.37 X10^3/uL; Monocyte% 8.7 % (0-10); NRBC Flagged by Analyzer 0 % (0-5); Neutrophil # 3.04 X10^3/uL (2.7-7.7); Neutrophil % 71.4 % (47-70); Platelet Count 183 K/mm3 (150-450); RBC Distribution Width CV 14.8 % (11.6-14.6); Red Blood Count 3.77 M/mm3 (4.6-6.2); White Blood Count 4.3 K/mm3 (4.4-11.0)
[2020-03-10 10:23] LABS: ALB/GLOB Ratio 1.2 RATIO (0.9-2.4); AST(SGOT) 13 U/L (15-37); Alanine Aminotransfer ALT/SGPT 21 U/L (16-61); Albumin, Serum 3.5 g/dL (3.2-5.0); Alkaline Phosphatase 56 U/L (45-117); Anion Gap 6 (5-15); BUN 39 mg/dL (7-18); BUN/Creat Ratio 34.2 RATIO (10-20); Calcium,Total 9.6 mg/dL (8.5-10.1); Chloride 105 mmol/L (98-107); Creatinine, Serum 1.14 mg/dL (0.70-1.30); EST Glomerular Filtration Rate 68 mL/min (>60); Est Glom Filt Rate - Afr Amer 82 mL/min (>60); Glucose 225 mg/dL (74-106); Potassium 4.2 mmol/L (3.5-5.1); Protein, Total 6.5 g/dL (6.4-8.2); Sodium Level 138 mmol/L (136-145)
== END | disposition home or self-care (01) ==
LOC: MTLAB 08:10
PROVIDERS: PCP Family Medicine; Referring Provider Internal Medicine Rheumatology; Visit Provider Internal Medicine Rheumatology
DX: M06.4 Inflammatory polyarthropathy (principal); M19.041 Primary osteoarthritis, right hand; M47.812 Spondylosis without myelopathy or radiculopathy, cervical region; M48.061 Spinal stenosis, lumbar region without neurogenic claudication; K21.0 Gastro-esophageal reflux disease with esophagitis; C90.01 Multiple myeloma in remission; Z79.899 Other long term (current) drug therapy
CPT/HCPCS: 36415; 80053; 85025

== ENCOUNTER → 2020-06-02 | Outpatient (CLI) | payer MEDICARE, SELFPAY ==
[2020-06-02 10:21] LABS: Absolute Lymphocyte Count 0.54 X10^3/uL (0.83-4.51); Absolute Neutrophil Count 2.7 X10^3/uL (2.0-7.7); Basophil# 0.02 X10^3/uL; Basophil% 0.5 % (0-1); Eosinophil# 0.05 X10^3/uL; Eosinophils% 1.3 % (0-5); Hematocrit 36.3 % (40-54); Hemoglobin 11.5 g/dL (13.0-16.5); Lymphocyte # 0.54 X10^3/ul (4.0); Lymphocyte % 14.5 % (19-41); Mean Corp Hgb Conc 31.7 g/dL (32-36); Mean Corpuscular Hgb 30.9 pg (27.0-32.0); Mean Corpuscular Volume 97.6 fL (80-94); Mean Platelet Vol. 9.6 fl (6.2-12.0); Monocyte# 0.38 X10^3/uL; Monocyte% 10.2 % (0-10); NRBC Flagged by Analyzer 0 % (0-5); Neutrophil % 72.7 % (47-70); POSITIVE DIFFERENTIAL YES; Platelet Count 182 K/mm3 (150-450); RBC Distribution Width CV 14.7 % (11.6-14.6); RBC Distribution Width SD 53.1 fl (35.1-43.9); Red Blood Count 3.72 M/mm3 (4.6-6.2); White Blood Count 3.7 K/mm3 (4.4-11.0)
[2020-06-02 10:40] LABS: Differential Indicated SCAN CRITERIA MET
[2020-06-02 10:46] LABS: ALB/GLOB Ratio 1.1 RATIO (0.9-2.4); AST(SGOT) 29 U/L (15-37); Alanine Aminotransfer ALT/SGPT 25 U/L (16-61); Albumin, Serum 3.3 g/dL (3.2-5.0); Alkaline Phosphatase 59 U/L (45-117); Anion Gap 5 (5-15); BUN 27 mg/dL (7-18); BUN/Creat Ratio 20.5 RATIO (10-20); Calcium,Total 7.9 mg/dL (8.5-10.1); Chloride 105 mmol/L (98-107); Creatinine, Serum 1.32 mg/dL (0.70-1.30); EST Glomerular Filtration Rate 57 mL/min (>60); Est Glom Filt Rate - Afr Amer 69 mL/min (>60); Glucose 143 mg/dL (74-106); Potassium 4.1 mmol/L (3.5-5.1); Protein, Total 6.3 g/dL (6.4-8.2); Sodium Level 139 mmol/L (136-145)
[2020-06-02 11:18] LABS: Differential Comment SCANNED
[2020-06-03 13:39] LABS: Pathologist Review Reviewed
== END | disposition home or self-care (01) ==
LOC: MTLAB 07:08
PROVIDERS: PCP Family Medicine; Referring Provider Internal Medicine Rheumatology; Visit Provider Internal Medicine Rheumatology
DX: M06.4 Inflammatory polyarthropathy (principal); M19.041 Primary osteoarthritis, right hand; M47.812 Spondylosis without myelopathy or radiculopathy, cervical region; M48.061 Spinal stenosis, lumbar region without neurogenic claudication; K21.0 Gastro-esophageal reflux disease with esophagitis; C90.01 Multiple myeloma in remission; I10 Essential (primary) hypertension; E11.9 Type 2 diabetes mellitus without complications; E78.5 Hyperlipidemia, unspecified; I87.2 Venous insufficiency (chronic) (peripheral); Z79.899 Other long term (current) drug therapy
CPT/HCPCS: 36415; 80053; 85025

== ENCOUNTER → 2020-08-28 07:33 | Outpatient (CLI) | payer MEDICARE, SELFPAY ==
[2017-10-11 09:06] VITALS: BMI 34.4
[2020-08-28 10:05] LABS: Absolute Lymphocyte Count 0.66 X10^3/uL (0.83-4.51); Absolute Neutrophil Count 3.4 X10^3/uL (2.0-7.7); Basophil# 0.03 X10^3/uL; Basophil% 0.6 % (0-1); Eosinophil# 0.06 X10^3/uL; Eosinophils% 1.3 % (0-5); Hematocrit 42.2 % (40-54); Hemoglobin 13.5 g/dL (13.0-16.5); Lymphocyte # 0.66 X10^3/ul (4.0); Lymphocyte % 14.3 % (19-41); Mean Corpuscular Hgb 30.8 pg (27.0-32.0); Mean Corpuscular Volume 96.3 fL (80-94); Monocyte# 0.44 X10^3/uL; Monocyte% 9.5 % (0-10); NRBC Flagged by Analyzer 0 % (0-5); Neutrophil # 3.38 X10^3/uL (2.7-7.7); Neutrophil % 73.2 % (47-70); Platelet Count 189 K/mm3 (150-450); RBC Distribution Width CV 14.6 % (11.6-14.6); RBC Distribution Width SD 51.4 fl (35.1-43.9); Red Blood Count 4.38 M/mm3 (4.6-6.2); White Blood Count 4.6 K/mm3 (4.4-11.0)
[2020-08-28 10:20] LABS: ALB/GLOB Ratio 1.2 RATIO (0.9-2.4); AST(SGOT) 9 U/L (15-37); Alanine Aminotransfer ALT/SGPT 23 U/L (16-61); Albumin, Serum 3.5 g/dL (3.2-5.0); Alkaline Phosphatase 61 U/L (45-117); Anion Gap 5 (5-15); BUN 32 mg/dL (7-18); BUN/Creat Ratio 26.2 RATIO (10-20); Calcium,Total 8.9 mg/dL (8.5-10.1); Chloride 102 mmol/L (98-107); Creatinine, Serum 1.22 mg/dL (0.70-1.30); EST Glomerular Filtration Rate 63 mL/min (>60); Est Glom Filt Rate - Afr Amer 76 mL/min (>60); Globulin 2.8 g/dL (2.2-4.2); Glucose 218 mg/dL (74-106); Potassium 4.4 mmol/L (3.5-5.1); Protein, Total 6.3 g/dL (6.4-8.2); Sodium Level 137 mmol/L (136-145)
== END ==
PROVIDERS: PCP Family Medicine; Referring Provider Internal Medicine Rheumatology; Visit Provider Internal Medicine Rheumatology
DX: M06.4 Inflammatory polyarthropathy (principal); M19.041 Primary osteoarthritis, right hand; M47.812 Spondylosis without myelopathy or radiculopathy, cervical region; M48.061 Spinal stenosis, lumbar region without neurogenic claudication; K21.00 Gastro-esophageal reflux disease with esophagitis, without bleeding; C90.01 Multiple myeloma in remission; I10 Essential (primary) hypertension; E11.9 Type 2 diabetes mellitus without complications; E78.5 Hyperlipidemia, unspecified; I87.2 Venous insufficiency (chronic) (peripheral); Z79.899 Other long term (current) drug therapy
CPT/HCPCS: 36415; 80053; 85025

== ENCOUNTER → 2020-10-21 08:09 | Outpatient (CLI) | payer MEDICARE, SELFPAY ==
[2017-10-11 09:06] VITALS: BMI 34.4
[2020-10-21 10:29] LABS: Absolute Lymphocyte Count 0.57 X10^3/uL (0.83-4.51); Absolute Neutrophil Count 3.1 X10^3/uL (2.0-7.7); Basophil# 0.03 X10^3/uL; Basophil% 0.7 % (0-1); Eosinophil# 0.04 X10^3/uL; Hematocrit 44.4 % (40-54); Hemoglobin 13.8 g/dL (13.0-16.5); Lymphocyte # 0.57 X10^3/ul (4.0); Lymphocyte % 13.7 % (19-41); Mean Corp Hgb Conc 31.1 g/dL (32-36); Mean Corpuscular Hgb 29.6 pg (27.0-32.0); Mean Corpuscular Volume 95.1 fL (80-94); Mean Platelet Vol. 9.8 fl (6.2-12.0); Monocyte# 0.41 X10^3/uL; Monocyte% 9.9 % (0-10); NRBC Flagged by Analyzer 0 % (0-5); Neutrophil # 3.09 X10^3/uL (2.7-7.7); Neutrophil % 74.2 % (47-70); POSITIVE DIFFERENTIAL YES; Platelet Count 214 K/mm3 (150-450); RBC Distribution Width CV 14.6 % (11.6-14.6); RBC Distribution Width SD 50.8 fl (35.1-43.9); Red Blood Count 4.67 M/mm3 (4.6-6.2); White Blood Count 4.2 K/mm3 (4.4-11.0)
[2020-10-21 10:33] LABS: Differential Indicated SCAN CRITERIA MET
[2020-10-21 11:02] LABS: Differential Comment SCANNED
[2020-10-21 11:41] LABS: ALB/GLOB Ratio 1.2 RATIO (0.9-2.4); AST(SGOT) 16 U/L (15-37); Alanine Aminotransfer ALT/SGPT 24 U/L (16-61); Albumin, Serum 3.8 g/dL (3.2-5.0); Alkaline Phosphatase 83 U/L (45-117); Anion Gap 8 (5-15); BUN 26 mg/dL (7-18); Calcium,Total 9.5 mg/dL (8.5-10.1); Chloride 105 mmol/L (98-107); Creatinine, Serum 1.62 mg/dL (0.70-1.30); EST Glomerular Filtration Rate 45 mL/min (>60); Est Glom Filt Rate - Afr Amer 55 mL/min (>60); Globulin 3.1 g/dL (2.2-4.2); Glucose 154 mg/dL (74-106); Potassium 4.6 mmol/L (3.5-5.1); Protein, Total 6.9 g/dL (6.4-8.2); Sodium Level 137 mmol/L (136-145)
[2020-10-22 12:10] LABS: Pathologist Review Reviewed
== END ==
PROVIDERS: PCP Family Medicine; Referring Provider Internal Medicine Rheumatology; Visit Provider Internal Medicine Rheumatology
DX: M06.4 Inflammatory polyarthropathy (principal); M19.041 Primary osteoarthritis, right hand; M47.812 Spondylosis without myelopathy or radiculopathy, cervical region; M48.061 Spinal stenosis, lumbar region without neurogenic claudication; K21.00 Gastro-esophageal reflux disease with esophagitis, without bleeding; C90.01 Multiple myeloma in remission; I10 Essential (primary) hypertension; E11.9 Type 2 diabetes mellitus without complications; E78.5 Hyperlipidemia, unspecified; I87.2 Venous insufficiency (chronic) (peripheral); Z79.899 Other long term (current) drug therapy
CPT/HCPCS: 36415; 80053; 85025

== ENCOUNTER → 2021-04-05 07:10 | Outpatient (CLI) | payer MEDICARE, SELFPAY ==
[2017-10-11 09:06] VITALS: BMI 34.4
[2021-04-05 10:10] LABS: Absolute Lymphocyte Count 0.77 X10^3/uL (0.83-4.51); Absolute Neutrophil Count 4.1 X10^3/uL (2.0-7.7); Basophil# 0.03 X10^3/uL; Basophil% 0.6 % (0-1); Eosinophil# 0.05 X10^3/uL; Eosinophils% 0.9 % (0-5); Hematocrit 46.7 % (40-54); Hemoglobin 14.4 g/dL (13.0-16.5); Lymphocyte # 0.77 X10^3/ul (0.83-4.51); Lymphocyte % 14.3 % (19-41); Mean Corp Hgb Conc 30.8 g/dL (32-36); Mean Corpuscular Hgb 29.2 pg (27.0-32.0); Mean Corpuscular Volume 94.7 fL (80-94); Mean Platelet Vol. 9.9 fl (6.2-12.0); Monocyte# 0.39 X10^3/uL; Monocyte% 7.2 % (0-10); NRBC Flagged by Analyzer 0 % (0-5); Neutrophil # 4.14 X10^3/uL (2.7-7.7); Neutrophil % 76.6 % (47-70); Platelet Count 198 K/mm3 (150-450); RBC Distribution Width CV 14.6 % (11.6-14.6); Red Blood Count 4.93 M/mm3 (4.6-6.2); White Blood Count 5.4 K/mm3 (4.4-11.0)
[2021-04-05 10:21] LABS: ALB/GLOB Ratio 1.2 RATIO (0.9-2.4); AST(SGOT) 12 U/L (15-37); Alanine Aminotransfer ALT/SGPT 20 U/L (16-61); Albumin, Serum 3.5 g/dL (3.2-5.0); Alkaline Phosphatase 71 U/L (45-117); Anion Gap 5 (5-15); BUN 27 mg/dL (7-18); BUN/Creat Ratio 21.8 RATIO (10-20); Calcium,Total 8.8 mg/dL (8.5-10.1); Chloride 105 mmol/L (98-107); Creatinine, Serum 1.24 mg/dL (0.70-1.30); EST Glomerular Filtration Rate 61 mL/min (>60); Est Glom Filt Rate - Afr Amer 74 mL/min (>60); Glucose 112 mg/dL (74-106); Potassium 4.1 mmol/L (3.5-5.1); Protein, Total 6.5 g/dL (6.4-8.2); Sodium Level 139 mmol/L (136-145)
== END ==
PROVIDERS: PCP Family Medicine; Referring Provider Internal Medicine Rheumatology; Visit Provider Internal Medicine Rheumatology
DX: M06.4 Inflammatory polyarthropathy (principal); M19.041 Primary osteoarthritis, right hand; M47.812 Spondylosis without myelopathy or radiculopathy, cervical region; M48.061 Spinal stenosis, lumbar region without neurogenic claudication; K21.00 Gastro-esophageal reflux disease with esophagitis, without bleeding; C90.01 Multiple myeloma in remission; I10 Essential (primary) hypertension; E11.9 Type 2 diabetes mellitus without complications; Z79.899 Other long term (current) drug therapy
CPT/HCPCS: 36415; 80053; 85025

== ENCOUNTER → 2021-07-08 07:19 | Outpatient (CLI) | payer MEDICARE, SELFPAY ==
[2021-07-08 10:23] LABS: Absolute Lymphocyte Count 0.51 X10^3/uL (0.83-4.51); Absolute Neutrophil Count 4.9 X10^3/uL (2.0-7.7); Basophil# 0.03 X10^3/uL; Basophil% 0.5 % (0-1); Eosinophil# 0.07 X10^3/uL; Eosinophils% 1.2 % (0-5); Hematocrit 44.7 % (40-54); Hemoglobin 14.1 g/dL (13.0-16.5); Lymphocyte # 0.51 X10^3/ul (0.83-4.51); Lymphocyte % 8.4 % (19-41); Mean Corp Hgb Conc 31.5 g/dL (32-36); Mean Corpuscular Hgb 28.7 pg (27.0-32.0); Mean Corpuscular Volume 90.9 fL (80-94); Mean Platelet Vol. 9.4 fl (6.2-12.0); Monocyte# 0.51 X10^3/uL; Monocyte% 8.4 % (0-10); NRBC Flagged by Analyzer 0 % (0-5); Neutrophil # 4.92 X10^3/uL (2.7-7.7); Neutrophil % 81.2 % (47-70); POSITIVE DIFFERENTIAL YES; Platelet Count 178 K/mm3 (150-450); RBC Distribution Width CV 15.9 % (11.6-14.6); RBC Distribution Width SD 53.4 fl (35.1-43.9); Red Blood Count 4.92 M/mm3 (4.6-6.2); White Blood Count 6.1 K/mm3 (4.4-11.0)
[2021-07-08 10:28] LABS: Differential Indicated SCAN CRITERIA MET
[2021-07-08 10:41] LABS: ALB/GLOB Ratio 0.9 RATIO (0.9-2.4); AST(SGOT) 12 U/L (15-37); Alanine Aminotransfer ALT/SGPT 19 U/L (16-61); Albumin, Serum 3.2 g/dL (3.2-5.0); Alkaline Phosphatase 64 U/L (45-117); Anion Gap 6 (5-15); BUN 26 mg/dL (7-18); Calcium,Total 8.9 mg/dL (8.5-10.1); Chloride 102 mmol/L (98-107); Creatinine, Serum 1.18 mg/dL (0.70-1.30); EST Glomerular Filtration Rate 65 mL/min (>60); Est Glom Filt Rate - Afr Amer 79 mL/min (>60); Globulin 3.4 g/dL (2.2-4.2); Glucose 109 mg/dL (74-106); Potassium 4.2 mmol/L (3.5-5.1); Protein, Total 6.6 g/dL (6.4-8.2); Sodium Level 138 mmol/L (136-145)
== END ==
PROVIDERS: PCP Family Medicine; Referring Provider Internal Medicine Rheumatology; Visit Provider Internal Medicine Rheumatology
DX: M06.4 Inflammatory polyarthropathy (principal); M19.041 Primary osteoarthritis, right hand; M47.812 Spondylosis without myelopathy or radiculopathy, cervical region; M48.061 Spinal stenosis, lumbar region without neurogenic claudication; C90.01 Multiple myeloma in remission; I10 Essential (primary) hypertension; E11.9 Type 2 diabetes mellitus without complications; E78.5 Hyperlipidemia, unspecified; I87.2 Venous insufficiency (chronic) (peripheral); Z79.899 Other long term (current) drug therapy
CPT/HCPCS: 36415; 80053; 85025

== ENCOUNTER 2021-10-14 07:58 | Outpatient (CLI) | payer MEDICARE, SELFPAY ==
[2021-10-14 10:10] LABS: Absolute Lymphocyte Count 0.59 X10^3/uL (0.83-4.51); Absolute Neutrophil Count 3.9 X10^3/uL (2.0-7.7); Basophil# 0.02 X10^3/uL; Basophil% 0.4 % (0-1); Eosinophil# 0.03 X10^3/uL; Eosinophils% 0.6 % (0-5); Hematocrit 48.7 % (40-54); Hemoglobin 15.7 g/dL (13.0-16.5); Lymphocyte # 0.59 X10^3/ul (0.83-4.51); Lymphocyte % 11.8 % (19-41); Mean Corp Hgb Conc 32.2 g/dL (32-36); Mean Corpuscular Hgb 29.5 pg (27.0-32.0); Mean Corpuscular Volume 91.5 fL (80-94); Mean Platelet Vol. 9.5 fl (6.2-12.0); Monocyte# 0.47 X10^3/uL; Monocyte% 9.4 % (0-10); NRBC Flagged by Analyzer 0 % (0-5); Neutrophil # 3.86 X10^3/uL (2.7-7.7); Neutrophil % 77.2 % (47-70); POSITIVE DIFFERENTIAL YES; Platelet Count 206 K/mm3 (150-450); RBC Distribution Width CV 15.5 % (11.6-14.6); RBC Distribution Width SD 52.2 fl (35.1-43.9); Red Blood Count 5.32 M/mm3 (4.6-6.2)
[2021-10-14 10:16] LABS: Differential Indicated SCAN CRITERIA MET
[2021-10-14 11:00] LABS: ALB/GLOB Ratio 1.1 RATIO (0.9-2.4); AST(SGOT) 13 U/L (15-37); Alanine Aminotransfer ALT/SGPT 21 U/L (16-61); Albumin, Serum 3.5 g/dL (3.2-5.0); Alkaline Phosphatase 64 U/L (45-117); Anion Gap 9 (5-15); BUN 26 mg/dL (7-18); BUN/Creat Ratio 21.5 RATIO (10-20); Calcium,Total 9.1 mg/dL (8.5-10.1); Chloride 102 mmol/L (98-107); Creatinine, Serum 1.21 mg/dL (0.70-1.30); EST Glomerular Filtration Rate 63 mL/min (>60); Est Glom Filt Rate - Afr Amer 76 mL/min (>60); Globulin 3.2 g/dL (2.2-4.2); Glucose 120 mg/dL (74-106); Potassium 4.3 mmol/L (3.5-5.1); Protein, Total 6.7 g/dL (6.4-8.2); Sodium Level 136 mmol/L (136-145)
== END 2021-10-14 23:59 | disposition short-term general hospital (02) ==
LOC: MTLAB 08:00
PROVIDERS: PCP Family Medicine; Referring Provider Internal Medicine Rheumatology; Visit Provider Internal Medicine Rheumatology
DX: M06.4 Inflammatory polyarthropathy (principal); C90.01 Multiple myeloma in remission; E11.9 Type 2 diabetes mellitus without complications; M19.041 Primary osteoarthritis, right hand; M19.042 Primary osteoarthritis, left hand; M47.812 Spondylosis without myelopathy or radiculopathy, cervical region; M48.061 Spinal stenosis, lumbar region without neurogenic claudication; I10 Essential (primary) hypertension; E78.5 Hyperlipidemia, unspecified; K21.00 Gastro-esophageal reflux disease with esophagitis, without bleeding; I87.2 Venous insufficiency (chronic) (peripheral); Z79.899 Other long term (current) drug therapy
CPT/HCPCS: 36415; 80053; 85025; 97110

== ENCOUNTER 2021-10-19 07:30 | Outpatient (RCR) | payer MEDICARE, SELFPAY ==
--- NOTE | 2021-09-09 09:50 | HP.OTEVAL ---
Patient's Visit Information RONNIE YARBROUGH is a 71 year old M, referred to Occupational Therapy by FARRUKH PAULINO, with a diagnosis of right ulnar nerve lesion. Date of Evaluation: 09/09/21 Occupational Therapist: Lindy Oscar, RICHARD/Anand, CHT - Subjective This 71 year old male was seen for OT eval with dx of lesion of ulnar nerve right UE -. pt states he was having symptoms for CTS for about 6 months- after seen hand specialist he decided to have sx- sx was on 08/23/21 states he is feeling well- pt arrives 2 weeks 3 days s/p from a right CTR flexor tenosynovectomy right wrist; Melanie opposition transfer- right ulnar nerve decompression at wrist and elbow- V-Ligament reconstruction - right wrist arthrotomy and synovectomy-. states he had had issues with tingling in hands and feet since 2005 from cervical spine fusion- pt states he is very happy with sx results at this time- states he is ready to start using his hand to return to IND. ADLS and IADLs. - ROM Elbow: right -25/140 left 0/145 Forearm: right/left WNL Wrist: right 50/50 left 50/55 CMC: right 10 left 20 MP: right 30 left 40 IP: right 20 left 45 Radial Abduction: right 40 left 30 Opposition: right 5 left 10 MP: right RF 60 PIP: right 0/70 DIP: right 0/30 - Strength Dietary Manager: right NT left 30# Lateral Pinch: right NT left 10# Tripod Pinch: right NT left 10# Strength Comments: will test later date - Edema Wrist: right 21.5cm left 20 cm Proximal Phalanx: right 23.5cm left 23cm - Sensation Thumb: right 4.71 left 4.08 Index: right 4.08 left 3.81 Middle: right 3.84 left 3.61 Ring: right 3.84 left 3.81 Little: right 3.84 left 3.61 - Quick DASH-Disab of Arm,Shoulder& Hand Quick DASH Score: 75.0000 - Goals Goal:100% adherence to protocol: Yes Comment: Prosper Castillo Opponesplasty and CTR protocol Goal:Daily scar massage when approriate: Yes Goal:ROM equal to unaffected hand: Yes Goal:Dietary Manager/Pinch strength at least 75% of unaffected hand: Yes Goal:No pain with affected hand use: Yes Goal:PIP Circumferences equal to unaffected hand: Yes Goal:Full use of affected hand in daily activities including: Yes Goal:Improvement in sensation documented by [place]: Yes Goal:Decrease scar hypersensitivity: Yes - Rehabilitation General Assessment: pt arrives 2 weeks 3 days s/p from a right CTR flexor tenosynovectomy right wrist; Melanie opposition transfer- right ulnar nerve decompression at wrist and elbow- V-Ligament reconstruction - right wrist arthrotomy and synovectomy- pt demo with edema, limited ROM and lifting restriction while structures heal. pt limited with use of right hand with ADls and IADLs. pt would benefit from skilled OT services 1-2x week for 8 weeks. Today therapist ed. pt on protocol, week 2 exercise, scar mtg and edema control- pt demo understanding and agree to POC. Therapist highlighted week 2 protocol and wt. bearing restrictions. Rehabilitation Potential: Good - Anticipated Interventions A/AAROM/PROM, Strengthening, Scar Care, Triggerpoint Release, Sensory Retraining, Modalities, Orthoses, Joint Protection/Energy Conservation, Ergonomic Education, Fine Motor Coord/Rosalio, Education re assistive Equipment, Education re Diagnosis, Home Program - Visit Plan Frequency: 1-2x /Week Duration: 6 Weeks TEXT: Thank you for the opportunity to evaluate your patient. For Medicare and Medicare HMO plans, please review the plan of care and approve it. It will need to be FAXED BACK to us at [phone] for Medicare purposes. Please let me know if there are questions or concerns regarding this plan of care. Physician Signature: Date:
--- NOTE | 2021-10-19 08:31 | HP.OTDCSUM_ITS ---
It has been my pleasure to treat RONNIE YARBROUGH under orders from FARRUKH PAULINO, for the diagnosis of right ulnar nerve lesion for a total of 7 visit(s). Please see the following information for a summary of their discharge status. % Improvement: 80 Objective/Function: pt demo with a right nut tapper strength of 25#. a left nut tapper strength 35#. right wrist 45/55. palmar abduction 45*. right thumb 4.08 this improved from 4.74. right IF 3.84 this improved from 4.08. right MF 3.61 this improved from 3.84. right RF 2.83 this improved from 3.84. right LF 2.83 this improved from 3.84 Patient Goals: Use Hand/Wrist/Arm Normally Again, Be More Independent in ADLS Goal:100% adherence to protocol: Yes Goal:Daily scar massage when approriate: Yes Goal:ROM equal to unaffected hand: Yes Goal:Experimental Flight Test Mechanic/Pinch strength at least 75% of unaffected hand: Yes Goal:No pain with affected hand use: Yes Goal:PIP Circumferences equal to unaffected hand: Yes Goal:Full use of affected hand in daily activities including: Yes Goal:Improvement in sensation documented by [place]: Yes Goal:Decrease scar hypersensitivity: Yes Plan: Dr. Moon s/p yanet Opponesplasty & CTR - If there are questions or concerns regarding this patient's occupational therapy, please fell free to call me at [phone]. Thank you for the referral of this patient. Sincerely, Lindy Oscar, OTR/L, CHT
== END 2021-10-19 19:00 | disposition home or self-care (01) ==
LOC: OT 07:30
PROVIDERS: PCP Family Medicine
DX: G56.21 Lesion of ulnar nerve, right upper limb (principal); G56.01 Carpal tunnel syndrome, right upper limb
CPT/HCPCS: 97035; 97110; 97140; 97166; 97530

== ENCOUNTER 2021-12-28 13:56 | Outpatient (CLI) | payer MEDICARE, SELFPAY ==
[2021-12-28 15:21] LABS: Absolute Lymphocyte Count 0.43 X10^3/uL (0.83-4.51); Absolute Neutrophil Count 4.5 X10^3/uL (2.0-7.7); Basophil# 0.01 X10^3/uL; Basophil% 0.2 % (0-1); Eosinophil# 0.02 X10^3/uL; Eosinophils% 0.4 % (0-5); Hematocrit 45.3 % (40-54); Hemoglobin 14.3 g/dL (13.0-16.5); Lymphocyte # 0.43 X10^3/ul (0.83-4.51); Mean Corp Hgb Conc 31.6 g/dL (32-36); Mean Corpuscular Hgb 29.4 pg (27.0-32.0); Mean Corpuscular Volume 93.2 fL (80-94); Mean Platelet Vol. 9.9 fl (6.2-12.0); Monocyte# 0.41 X10^3/uL; Monocyte% 7.6 % (0-10); NRBC Flagged by Analyzer 0 % (0-5); Neutrophil # 4.49 X10^3/uL (2.7-7.7); Neutrophil % 83.1 % (47-70); POSITIVE DIFFERENTIAL YES; Platelet Count 210 K/mm3 (150-450); RBC Distribution Width CV 15.5 % (11.6-14.6); Red Blood Count 4.86 M/mm3 (4.6-6.2); White Blood Count 5.4 K/mm3 (4.4-11.0)
[2021-12-28 15:22] LABS: Differential Indicated SCAN CRITERIA MET
[2021-12-28 15:50] LABS: ALB/GLOB Ratio 1.2 RATIO (0.9-2.4); AST(SGOT) 12 U/L (15-37); Alanine Aminotransfer ALT/SGPT 20 U/L (16-61); Albumin, Serum 3.5 g/dL (3.2-5.0); Alkaline Phosphatase 71 U/L (45-117); Anion Gap 6 (5-15); BUN 26 mg/dL (7-18); BUN/Creat Ratio 19.3 RATIO (10-20); Calcium,Total 8.6 mg/dL (8.5-10.1); Chloride 101 mmol/L (98-107); Creatinine, Serum 1.35 mg/dL (0.70-1.30); EST Glomerular Filtration Rate 55 mL/min (>60); Est Glom Filt Rate - Afr Amer 67 mL/min (>60); Glucose 146 mg/dL (74-106); Potassium 3.8 mmol/L (3.5-5.1); Protein, Total 6.5 g/dL (6.4-8.2); Sodium Level 137 mmol/L (136-145)
[2021-12-28 15:54] LABS: Differential Comment SCANNED
== END 2021-12-28 23:59 | disposition home or self-care (01) ==
LOC: MTLAB 13:58
PROVIDERS: PCP Family Medicine; Referring Provider Internal Medicine Rheumatology; Visit Provider Internal Medicine Rheumatology
DX: M06.4 Inflammatory polyarthropathy (principal); C90.01 Multiple myeloma in remission; E11.9 Type 2 diabetes mellitus without complications; M19.041 Primary osteoarthritis, right hand; M47.812 Spondylosis without myelopathy or radiculopathy, cervical region; M48.061 Spinal stenosis, lumbar region without neurogenic claudication; K21.00 Gastro-esophageal reflux disease with esophagitis, without bleeding; I10 Essential (primary) hypertension; E78.5 Hyperlipidemia, unspecified; I87.2 Venous insufficiency (chronic) (peripheral); Z79.899 Other long term (current) drug therapy
CPT/HCPCS: 36415; 80053; 85025

== ENCOUNTER → 2022-08-30 | Outpatient (CLI) | payer MEDICARE, SELFPAY ==
--- NOTE | 2022-08-30 12:33 | CT_ITS ---
STUDY: LOW DOSE CT LUNG CANCER SCREENING REASON FOR EXAM: Male, 72 years old. 1 pack per day smoker x35 years, quit 10 years ago, smokes a pipe RADIATION DOSAGE (If Supplied By Facility): CTDIvol = ( 4.02 ) mGy, DLP = ( 145.47 ) mGycm TECHNIQUE: No contrast was administered. Low dose technique was utilized (average mAS-38 and kVp 120). 1.25 mm axial source images with a slice interval of 1.25-mm were reconstructed in lung windows. 2.5 mm axial source images with a slice interval of 2.5-mm were reconstructed in lung windows. 5.0 mm axial source images with a slice interval of 5.0-mm were reconstructed in soft tissue windows. COMPARISON: None. FINDINGS: Lung windows show a 4 mm pleural-based noncalcified nodule in the right upper lobe on axial image 43. There is also a 3 mm noncalcified nodule in the periphery of the right middle lobe on axial image 85. There is no organized infiltrate. Lungs are mildly hyperexpanded. Soft tissues show normal-appearing thyroid gland. No suspicious adenopathy. Calcified coronary vessels noted. No pleural or pericardial effusions. Limited cuts through the upper abdomen do not show a suspicious abnormality. Bony structures show degenerative change CT/Low Dose CT Lung Screening IMPRESSION: Lung-RADS category 3 - Continue screening with LDCT in 6 months. IMPORTANT NOTES FOR USE: ACR Lung-RADS Version 1.1 Assessment Categories Release Date: 2018 Category: Coded 0-4 bases on nodule(s) with highest degree of suspicion. Negative screen is defined as categories 1 and 2; a positive screen is defined as categories 3 and 4. Category 3 and 4A nodules that are unchanged on interval CT should be coded as category 2, and individuals returned to screening in 12 months. Category 4X: Category 3 or 4 nodules with additional imaging findings that increase the suspicion of lung cancer, such as spiculation, GGN that doubles in size in 1 year, enlarged lymph notes, etc. Category Modifiers: S (significant finding unrelated to lung cancer) Electronically Signed: Zach Marks MD at 8:45 EST ,
== END | disposition home or self-care (01) ==
PROVIDERS: PCP Family Medicine
DX: Z87.891 Personal history of nicotine dependence (principal); J44.9 Chronic obstructive pulmonary disease, unspecified
CPT/HCPCS: 71271

== ENCOUNTER 2023-01-05 14:55 | Inpatient (IN) | payer MEDICARE, SELFPAY ==
[2023-01-05 15:02] VITALS: BP 115/71; PULSE 91; RESP 16; TEMP 37; O2SAT 94
[2023-01-05 15:10] VITALS: BP 115/71; PULSE 91; RESP 16; TEMP 37; O2SAT 94
[2023-01-05 15:57] VITALS: PULSE 92; RESP 18; O2SAT 96
[2023-01-05 16:20] VITALS: BMI 31.2
[2023-01-05 16:32] VITALS: BMI 31.2
[2023-01-05] MEDS: Gabapentin 300 MG Capsule PO (17:21)
[2023-01-05] MEDS: Celecoxib 200 MG Capsule PO (17:21)
[2023-01-05] MEDS: metFORMIN HCl 1,000 MG Tablet 1000 MG PO (17:21)
--- NOTE | 2023-01-05 19:41 | HP.PCM_ITS ---
HPI - General General Date of Admission: 01/05/23 Date of Service: 01/05/23 Chief Complaint: Here for rehabilitation. HPI Narrative RONNIE YARBROUGH, is a 72 Male who presents with followin12/28/2022 Admit to [facility]. 12/28/2022 Dr. Bry Sue performed posterior T11-T12 microdecompression due to severe spinal nerve and cord involvement. Patient has constant back pain, bilateral lower extremity numbness, has been wheelchair bound for last week. 12/29/2022 PT/OT. SCD for DVT prophylaxis. 01/05/2023 Admit to TCU with debility, here for rehabilitation, strengthening, prior to discharge home with . [facility] Medical History (Updated 01/05/23 @ 19:[address] Shabbir Davila MD) COPD (chronic obstructive pulmonary disease) Debility Diabetes mellitus GERD (gastroesophageal reflux disease) History of multiple myeloma Hyperlipidemia Hypertension Osteoarthritis Rheumatoid arthritis Thoracic spinal stenosis Home Medications aspirin 81 mg tablet,delayed release 81 mg PO DAILY Heart 01/05/23 [History Last Taken Unknown] atorvastatin 40 mg tablet 40 mg PO DAILY cholesterol 01/05/23 [History Last T aken Unknown] calcium carb-ergocalciferol (vit D2) 600 mg calcium-200 unit tablet 200 tab PO DAILY Supplment 01/05/23 [History Last Taken Unknown] celecoxib 200 mg capsule 200 mg PO BID Pain 01/05/23 [History Last Taken Unknown] cholecalciferol (vitamin D3) 50 mcg (2,000 unit) tablet 50 mcg PO DAILY Supplement 01/05/23 [History Last Taken Unknown] cyanocobalamin (vitamin B-12) 1,000 mcg capsule 1,000 mcg PO DAILY Supplement 01/05/23 [History Last Taken Unknown] dapagliflozin 5 mg tablet 5 mg PO DAILY Heart 01/05/23 [History Last Taken Unknown] docusate sodium 100 mg capsule (Colace) 100 mg PO BID PRN Constipation 01/05/23 [History Last Taken Unknown] dulaglutide 1.5 mg/0.5 mL subcutaneous pen injector (Trulicity) mg subcut MO DM 01/05/23 [History Last Taken Unknown] fluticasone fur. 100 mcg-umeclid 62.5 mcg-vilant 25 mcg inhalat.powder 1 inh inhalation DAILY Allergies 01/05/23 [History Last Taken Unknown] furosemide 40 mg tablet 40 mg PO DAILY Fluid Retention 01/05/23 [History Last Taken Unknown] gabapentin 300 mg capsule 300 mg PO BID Lumbar Canal Stenosis 01/05/23 [History Last Taken Unknown] hydroxychloroquine 200 mg tablet 200 mg PO DAILY Arthritis 01/05/23 [History Last Taken Unknown] leflunomide 10 mg tablet 10 mg PO DAILY Arthritis 01/05/23 [History Last Taken Unknown] losartan 25 mg tablet 25 mg PO DAILY BP 01/05/23 [History Last Taken Unknown] metformin 1,000 mg tablet 1,000 mg PO BID DM 01/05/23 [History Last Taken Unknown] mometasone-formoterol HFA 200 mcg-5 mcg/actuation aerosol inhaler (Dulera) 2 puff inhalation BID COPD 01/05/23 [History Last Taken Unknown] multivitamin 1 tab PO DAILY Supplement 01/05/23 [History Last Taken Unknown] multivitamin with minerals 1 tab PO DAILY Supplement 01/05/23 [History Last Taken Unknown] omeprazole 40 mg capsule,delayed release 40 mg PO DAILY GERD 01/05/23 [History Last Taken Unknown] oxycodone 5 mg tablet 5 mg PO Q6H PRN Pain (Scale Score 6-10) 01/05/23 [History Last Taken Unknown] spironolactone 25 mg tablet 25 mg PO DAILY BP 01/05/23 [History Last Taken Unknown] tadalafil 20 mg tablet 20 mg PO X1 PRN Erectile Dysfunction 01/05/23 [History Last Taken Unknown] terbinafine HCl 250 mg tablet 250 mg PO DAILY Antifungal 01/05/23 [History Last Taken Unknown] torsemide 10 mg tablet 10 mg PO DAILY Heart 01/05/23 [History Last Taken Unknown] Allergy/AdvReac Type Severity Reaction Status Date / Time No Known Allergies Allergy Verified 10/11/17 09:06 Family History (Updated 01/05/23 @ 19:[address] Shabbir Davila MD) Father Cancer, Onset Age: 52 Pancreatic cancer. Surgical History (Updated 01/05/23 @ 19:[address] Shabbir Davila MD) History of bone marrow transplant History of lumbar fusion History of reverse total replacement of right shoulder joint History of total right knee replacement (TKR) Hx of fusion of cervical spine Social History (Updated 01/05/23 @ 19:[address] Shabbir Davila MD) household members: spouse Smoking Status: Former smoker quit date: 09/18/12 alcohol intake: never substance use type: does not use ROS Constitutional Constitutional: Denies chills, fever(s) or weight gain ENT HEENT: Denies headache(s), nasal congestion or nasal discharge Cardiovascular Cardiovascular: Denies chest pain or palpitations Respiratory/Chest Respiratory/Chest: Denies cough, excessive phlegm production or shortness of breath with exertion Gastrointestinal Gastrointestinal: Denies abdominal pain, nausea or vomiting Genitourinary Genitourinary: Denies dysuria Musculoskeletal Musculoskeletal: Denies joint pain or joint swelling Integumentary Integumentary: Denies rash or wounds Neurologic Neurologic: Denies focal weakness, numbness or tingling Psychiatric Psychiatric: Denies anxiety, auditory hallucinations, depression, homicidal ideation or suicidal ideation Vital Signs Vital Signs Vital Signs: 01/05/23 15:02 01/05/23 15:10 01/05/23 15:57 Temperature 98.6 F 98.6 F Temperature Source Temporal Temporal Pulse Rate 91 91 92 Pulse Rhythm Regular Pulse Strength Normal (2+) Respiratory Rate 16 16 18 Respiratory Effort Normal Non-Labored Respiratory Depth Normal Respiratory Pattern Normal Blood Pressure 115/71 115/71 Blood Pressure Mean 85 85 Blood Pressure Source Monitor Monitor Blood Pressure Position Sitting Sitting Blood Pressure Location Left Arm Left Arm Pulse Ox 94 94 96 Oxygen Delivery Method Room Air Room Air Room Air 01/05/23 16:38 Temperature Temperature Source Pulse Rate Pulse Rhythm Pulse Strength Normal (2+) Respiratory Rate Respiratory Effort Respiratory Depth Respiratory Pattern Blood Pressure Blood Pressure Mean Blood Pressure Source Blood Pressure Position Blood Pressure Location Pulse Ox Oxygen Delivery Method Weight Weight: 95.906 kg Body Mass Index (BMI) 31.2 Physical Exam Const alert General Appearance: cooperative HEENT normocephalic Eyes PERRL and EOMs intact bilaterally Neck supple, no JVD and no carotid bruits Resp normal respiratory effort, normal air movement and clear to auscultation bilaterally Cardio regular rate and regular rhythm GI normal to inspection, nondistended, normoactive bowel sounds, non-tender and non-distended Extremity normal capillary refill General Extremity: Negative for edema Skin no rashes or lesions noted General Skin Exam: no breakdown Psych affect normal Appearance: appropriate Assessment & Plan Assessment/Plan (1) Debility: (2) Thoracic spinal stenosis: (3) Hyperlipidemia: (4) COPD (chronic obstructive pulmonary disease): (5) Diabetes mellitus: (6) Osteoarthritis: (7) Rheumatoid arthritis: (8) GERD (gastroesophageal reflux disease): (9) History of multiple myeloma: PLAN: Plan 72 year old male with below past medical history underwent posterior T11-T12 microdecompression surgery 12/28/[address] Bry Sue, admitted to TCU with debility, here for rehabilitation, strengthening, prior to discharge home with . * Debility - PT/OT. * Pain - Tylenol 1000mg q6h prn pain (1-3), Tramadol 50mg q6h prn pain (4-5), Oxycodone 5mg q4h prn pain (6-10). * Bowel - Miralax 17gm daily, senna/colace 2 tablets bid, MOM 30ml po x 1 prn. * Adult immunization - Administer pneumonia vaccine, covid19 vaccine, flu vaccine as appropriate. * DVT prophylaxis - Monitor. * CV prophylaxis - Aspirin 81mg daily. * Hyperlipidemia - Atorvastatin 40mg qhs. * Osteoarthritis - Celebrex 200mg bid. * Vitamin B12 deficiency - B12 1000Mcg daily. * Diabetes Mellitus II - Metformin 1000mg bidcm, Jardiance 10mg daily, Trulicity 1.5mg per week. * COPD - Trelegy 100mcg 1 puff daily. * Edema - Lasix 40mg daily, Aldactone 25mg daily. * Neuropathic pain - Gabapentin 300mg bid. * Rheumatoid arthritis - Plaquenil 200mg daily, Lefluonomide 10mg daily. * Hypertension - Losartan 25mg daily. * Insomnia - Melatonin 10mg qhs prn. * Nutrition - MVI daily. * GERD - Pantoprazole 40mg daily. * Fungal infection - Terbinafine 250mg daily thru 01/12/2023.
[2023-01-05] MEDS: Atorvastatin Calcium 40 MG Tablet PO (20:46)
[2023-01-05] MEDS: MELATONIN 10 MG TABLET PO (20:52)
--- NOTE | 2023-01-05 23:15 | NURSING ---
Pt states he does not want to continue lasix or stool softners. Educated and encouraged to take as ordered.
[2023-01-06] MEDS: Aspirin E.C. 81 MG Tablet PO (05:07)
[2023-01-06] MEDS: Hydroxychloroquine 200 MG Tablet PO (05:07)
[2023-01-06] MEDS: Spironolactone 25 MG Tablet PO (05:07)
[2023-01-06] MEDS: Empagliflozin 10 MG Tablet PO (05:07)
[2023-01-06] MEDS: Cyanocobalamin 500 MCG Tablet 1000 MCG PO (05:07)
[2023-01-06] MEDS: Multivitamins,Ther W-Minerals Tablet 1 TABLET PO (05:07)
[2023-01-06] MEDS: Celecoxib 200 MG Capsule PO ×2 (05:07→17:53)
[2023-01-06] MEDS: Pantoprazole Sodium 40 MG Tablet PO (05:07)
[2023-01-06] MEDS: Leflunomide 10 MG TABLET PO (05:08)
[2023-01-06] MEDS: terbinafine HCL 250 MG TABLET PO (05:09)
[2023-01-06] MEDS: Losartan Potassium 25 MG Tablet PO (05:10)
[2023-01-06 05:16] VITALS: BP 117/75; PULSE 84; RESP 16; TEMP 36.3; O2SAT 97
[2023-01-06] MEDS: Gabapentin 300 MG Capsule PO ×2 (05:28→17:53)
[2023-01-06] MEDS: FLUTICASONE/UMECLIDIN/VILANTER 1 EACH BLST.W.DEV INHALATION (05:29)
[2023-01-06 05:40] LABS: Absolute Lymphocyte Count 0.71 X10^3/uL (0.83-4.51); Absolute Neutrophil Count 3.8 X10^3/uL (2.0-7.7); Basophil# 0.01 X10^3/uL; Basophil% 0.2 % (0-1); Eosinophil# 0.02 X10^3/uL; Eosinophils% 0.4 % (0-5); Hematocrit 42.8 % (40-54); Hemoglobin 13.8 g/dL (13.0-16.5); Lymphocyte # 0.71 X10^3/ul (0.83-4.51); Lymphocyte % 14.2 % (19-41); Mean Corp Hgb Conc 32.2 g/dL (32-36); Mean Corpuscular Hgb 28.3 pg (27.0-32.0); Mean Corpuscular Volume 87.7 fL (80-94); Mean Platelet Vol. 9.8 fl (6.2-12.0); Monocyte# 0.38 X10^3/uL; Monocyte% 7.6 % (0-10); NRBC Flagged by Analyzer 0 % (0-5); Neutrophil # 3.84 X10^3/uL (2.7-7.7); Neutrophil % 76.6 % (47-70); Platelet Count 141 K/mm3 (150-450); RBC Distribution Width CV 17.6 % (11.6-14.6); RBC Distribution Width SD 56.2 fl (35.1-43.9); Red Blood Count 4.88 M/mm3 (4.6-6.2)
[2023-01-06 06:01] LABS: Anion Gap 5 (5-15); BUN 23 mg/dL (7-18); BUN/Creat Ratio 21.1 RATIO (10-20); Calcium,Total 8.8 mg/dL (8.5-10.1); Chloride 106 mmol/L (98-107); Creatinine, Serum 1.09 mg/dL (0.70-1.30); EST Glomerular Filtration Rate 71 mL/min (>60); Est Glom Filt Rate - Afr Amer 86 mL/min (>60); Estimated Creatinine Clearance 62.16 ml/min; Glucose 131 mg/dL (74-106); Potassium 4.5 mmol/L (3.5-5.1); Sodium Level 136 mmol/L (136-145)
[2023-01-06 07:45] LABS: Bedside Glucose 138 mg/dL (74-106)
[2023-01-06] MEDS: metFORMIN HCl 1,000 MG Tablet 1000 MG PO ×2 (08:02→17:53)
--- NOTE | 2023-01-06 11:28 | PCM.PN.DRR ---
TCU RX Drug Regimen Review Subjective: 72 YOM admitted on 01/05/23 S/P microdecompression of spinal cord at outside facility. Admitted to TCU for strengthening and rehabilitation prior to discharge home where he resides with his . Objective: Allergies No Known Allergies Allergy (Verified 10/11/17 09:06) Current Medications Generic Name Dose Route Start Last Admin Trade Name Freq PRN Reason Stop Dose Admin Acetaminophen 1,000 mg 01/05/23 19:55 Acetaminophen 500 Mg Tablet PO Q6H PRN PRN Pain Score 1-3 Aspirin 81 mg 01/06/23 06:00 01/06/23 05:07 Aspirin E.C. 81 Mg Tablet PO 81 mg DAILY DAVID Administration Atorvastatin Calcium 40 mg 01/05/23 22:00 01/05/23 20:46 Atorvastatin Calcium 40 Mg Tablet PO 40 mg QHS DAVID Administration Celecoxib 200 mg 01/05/23 18:00 01/06/23 05:07 Celecoxib 200 Mg Capsule PO 200 mg BID DAVID Administration Cyanocobalamin 1,000 mcg 01/06/23 06:00 01/06/23 05:07 Cyanocobalamin 500 Mcg Tablet PO 1,000 mcg DAILY DAVID Administration Empagliflozin 10 mg 01/06/23 06:00 01/06/23 05:07 Empagliflozin 10 Mg Tablet PO 10 mg DAILY DAVID Administration Furosemide 40 mg 01/06/23 06:00 01/06/23 05:10 Furosemide 40 Mg Tablet PO Not Given DAILY DAVID Gabapentin 300 mg 01/05/23 18:00 01/06/23 05:28 Gabapentin 300 Mg Capsule PO 300 mg BID DAVID Administration Hydroxychloroquine Sulfate 200 mg 01/06/23 06:00 01/06/23 05:07 Hydroxychloroquine 200 Mg Tablet PO 200 mg DAILY DAVID Administration Leflunomide 10 mg 01/06/23 06:00 01/06/23 05:08 Leflunomide 10 Mg Tablet PO 10 mg DAILY DAVID Administration Losartan Potassium 25 mg 01/06/23 06:00 01/06/23 05:10 Losartan Potassium 25 Mg Tablet PO 25 mg DAILY DAVID Administration Magnesium Hydroxide 30 ml 01/05/23 19:55 Magnesium Hydroxide 30 Ml Udc PO X1 PRN Constipation Melatonin 10 mg 01/05/23 17:14 01/05/23 20:52 Melatonin 10 Mg Tablet PO 10 mg QHS PRN PRN Administration INSOMNIA Metformin HCl 1,000 mg 01/05/23 17:00 01/06/23 08:02 Metformin Hcl 1,000 Mg Tablet PO 1,000 mg BIDCM DAVID Administration Multivitamins/Minerals 1 tablet 01/06/23 06:00 01/06/23 05:07 Multivitamins,Ther W-Minerals Tablet PO 1 tablet DAILY DAVID Administration Non-Formulary Medication 1.5 mg 01/09/23 15:46 Dulaglutide [Trulicity] SC [place] [facility] Oxycodone HCl 5 mg 01/05/23 19:57 Oxycodone 5 Mg Tablet PO 01/12/23 19:56 Q4H PRN PRN Pain (Scale Score 6-10) Pantoprazole Sodium 40 mg 01/06/23 06:00 01/06/23 05:07 Pantoprazole Sodium 40 Mg Tablet PO 40 mg DAILY [facility] Administration Polyethylene Glycol 17 gm 01/06/23 06:00 01/06/23 05:10 Polyethylene Glycol 3350 17 Gm Packet PO Not Given DAILY DAVID Senna/Docusate Sodium 2 tablet 01/05/23 20:00 01/06/23 05:09 Senna/Docusate Sodium 1 Tablet PO Not Given BID DAVID Spironolactone 25 mg 01/06/23 06:00 01/06/23 05:07 Spironolactone 25 Mg Tablet PO 25 mg DAILY DAVID Administration Terbinafine HCl 250 mg 01/06/23 06:00 01/06/23 05:09 Terbinafine Hcl 250 Mg Tablet PO 01/12/23 06:01 250 mg DAILY DAVID Administration Tramadol HCl 50 mg 01/05/23 19:55 Tramadol 50 Mg Tablet PO Q6H PRN PRN Pain Score 4-5 Tuberculin PPD 0.1 ml 01/13/23 10:00 Tuberculin,Purif.Prot.Deriv. 50 Tu/Ml Vial ID 01/13/23 10:01 X1 ONE Problem List (Last Updated 01/05/23 @ 19:[address] Shabbir Davila MD) History of multiple myeloma (Acute) GERD (gastroesophageal reflux disease) (Acute) Rheumatoid arthritis (Acute) Osteoarthritis (Acute) Diabetes mellitus (Acute) COPD (chronic obstructive pulmonary disease) (Chronic) Hyperlipidemia (Acute) Debility (Acute) Thoracic spinal stenosis (Acute) Vital Signs Temp Pulse Resp BP Pulse Ox O2 Del Method 97.4 F L 84 16 117/75 97 Room Air 01/06/23 05:16 01/06/23 05:16 01/06/23 05:16 01/06/23 05:16 01/06/23 05:16 01/06/23 10:00 Oxygen Delivery Method Room Air Weight: 95.906 kg Body Mass Index (BMI) 31.2 Sodium 136 mmol/L (136-145) 01/06/23 05:26 Potassium 4.5 mmol/L (3.5-5.1) 01/06/23 05:26 Chloride 106 mmol/L (98-107) 01/06/23 05:26 Carbon Dioxide 25.0 mmol/L (21.0-32.0) 01/06/23 05:26 Anion Gap 5 (5-15) 01/06/23 05:26 BUN 23 mg/dL (7-18) H 01/06/23 05:26 Creatinine 1.09 mg/dL (0.70-1.30) 01/06/23 05:26 Est GFR (MDRD) Af Amer 86 mL/min (>60) 01/06/23 05:26 Est GFR (MDRD) Non-Af 71 mL/min (>60) 01/06/23 05:26 BUN/Creatinine Ratio 21.1 RATIO (10-20) H 01/06/23 05:26 Glucose 131 mg/dL (74-106) H 01/06/23 05:26 Assessment/Plan: 1. pain: Tylenol 1000mg PO Q6h PRN Pain 1-3, Tramadol 50mg PO Q6h PRN Pain 4-5, Oxycodone 5mg PO Q4h PRN Pain 6-10. Please continue to monitor for increased/decreased S/S Pain, PRN medication usage, oversedation/constipation with opioid usage. - To date, the patient has not required any PRN medications for pain. Appears pain is managed at this time. 2. HTN/HLD/Cardiac: Aspirin 81mg PO Daily, Lipitor 40mg PO QHS, Furosemide 40mg PO Daily, Losartan 25mg PO Daily, Aldactone 25mg PO Daily. Please continue to monitor BP (range 115-117/71-75), pulse (range 84-92), electrolytes (WNL on 01/06), I/O, S/S edema/swelling, daily weights, S/S bleeding/bruising, H/H (stable 01/06). - Of note, per EMR review, the patient does not want to take Lasix medication and refused morning dose. Please continue to monitor patient closely for increase in swelling since lasix medication is not being administered, thank you. 3. Rheumatoid arthritis: Celebrex 200mg PO BID, Hydroxychloroquine 200mg PO Daily, Leflunomide 10mg PO Daily. Please continue to monitor LFT (none on file currently), rash, infection, nausea/vomiting, QTc (via EKG) as clinically indicated, H/H, S/S bleeding/bruising. 4. DM2: Jardiance 10mg PO Daily, Metformin 1000mg PO BID, Trulicity 1.5mg SC weekly. Please continue to monitor BG levels, S/S hypoglycemia, local site reactions, renal function (CrCl 62mL/min 01/06), A1c every 3 months. Please consider obtaining an A1c on this patient, as there is none on file, thank you. 5. Neuropathic pain: Gabapentin 300mg PO BID. Please continue to monitor for oversedation, renal function, medication effectiveness. This is a Beer's Criteria medication which can increase the risk of falls in patients >65 years of age. Per EMR review, patient has not had an issue with falls at this time, continue to monitor closely. 6. Fungal infection: Terbinafine 250mg PO Daily thru 01/12/23. Please continue to monitor for resolution of infection. 7. GERD: Protonix 40mg PO Daily. Please continue to monitor for GERD exacerbations, stomach upset, headache. May also encourage non-pharmacologic therapies to help minimize flare-ups, as well. 8. Insomnia: Melatonin 10mg PO QHS PRN. Please continue to monitor for medication effectiveness, oversedation. May give medication 2hrs prior to desired bedtime to help increase effectiveness, also. 9. General wellness: Vitamin B12 1000mcg PO Daily, MVI 1 tab PO daily. 10. Bowel: Miralax 17g PO Daily, Senna/docusate 2 tab PO BID, MOM 30mL PO x1 PRN. Please continue to monitor for increased/decreased constipation and/or diarrhea. - The patient has not had a bowel movement to date per NOV, but pt admitted <24hrs ago. Assessment/Plan for indications treated with psychotropic medications: -The patient is not currently on any psychotropic medications at time of medication review. Medical chart and medication regimen reviewed. The following medication irregularities or issues were identified: 1. Patient with COPD diagnosis, not currently on any medications upon admission. Noted in home medication list that patient takes Trelegy at home. Please evaluate if the patient needs to be medicated at this time, thank you. 2. Bowel regimen: Per nursing documentation/MAR, pt refusing bowel regimen orders and has refused doses. Please continue to monitor and consider changing medications to PRN status if patient has a bowel movement and continues to refuse medications, thank you. 3. Please consider obtaining LFTs on this patient, as the patient is currently taking medications for rheumatoid arthritis which can affect liver function. No labs noted on file, thank you. 4. Patient with DM@ on several medications, no A1c on file. Please consider obtaining an A1c if clinically indicated, thank you. Date of Note:: 01/06/23
--- NOTE | 2023-01-06 11:46 | NURSING ---
Shirt Presser Note; Activity Asset: Anu Chacon is independent in his choice of daily activities. He enjoys spending time with family and friends, Playing cards, watching tv, reading and will work on puzzles from time to time. His and friends will visit daily and bring him items he may need.
[2023-01-06] MEDS: Tuberculin,Purif.prot.deriv. 50 TU/ML Vial 0.1 ML ID (11:59)
--- NOTE | 2023-01-06 15:06 | CASEMGMT ---
Social Work Met with patient to complete initial assessment, Introduced self and role. Verified contacts. Discussed code status and MOLST form. Pt confirmed full code, MOLST placed in Dr folder. Pt unsure if he has advanced directives and will ask . SW offered to complete if pt does not have any. Educated to [facility] insurance with [employer] 01/09 and continued stay is not guaranteed with each review. Pt's goal is to return home with at [facility]. SW to continue to follow for DC planning. SHANTELL EasonW
[2023-01-06 16:00] VITALS: BP 112/65; PULSE 85; RESP 16; TEMP 36.4; O2SAT 92
[2023-01-06] MEDS: MELATONIN 10 MG TABLET PO (21:25)
[2023-01-06] MEDS: Atorvastatin Calcium 40 MG Tablet PO (21:25)
[2023-01-06 21:41] LABS: Bedside Glucose 172 mg/dL (74-106)
[2023-01-07] MEDS: Cyanocobalamin 500 MCG Tablet 1000 MCG PO (06:14)
[2023-01-07] MEDS: Spironolactone 25 MG Tablet PO (06:14)
[2023-01-07] MEDS: Losartan Potassium 25 MG Tablet PO (06:14)
[2023-01-07] MEDS: Aspirin E.C. 81 MG Tablet PO (06:14)
[2023-01-07] MEDS: Empagliflozin 10 MG Tablet PO (06:14)
[2023-01-07] MEDS: terbinafine HCL 250 MG TABLET PO (06:14)
[2023-01-07] MEDS: Celecoxib 200 MG Capsule PO ×2 (06:14→17:13)
[2023-01-07] MEDS: Hydroxychloroquine 200 MG Tablet PO (06:14)
[2023-01-07] MEDS: Pantoprazole Sodium 40 MG Tablet PO (06:14)
[2023-01-07] MEDS: Multivitamins,Ther W-Minerals Tablet 1 TABLET PO (06:14)
[2023-01-07] MEDS: Leflunomide 10 MG TABLET PO (06:17)
[2023-01-07] MEDS: Gabapentin 300 MG Capsule PO ×2 (06:17→17:13)
[2023-01-07] MEDS: FLUTICASONE/UMECLIDIN/VILANTER 1 EACH BLST.W.DEV INHALATION (06:19)
[2023-01-07 06:35] LABS: Bedside Glucose 138 mg/dL (74-106)
[2023-01-07 06:38] VITALS: BP 119/72; PULSE 82
[2023-01-07] MEDS: metFORMIN HCl 1,000 MG Tablet 1000 MG PO ×2 (08:40→17:13)
[2023-01-07 10:00] VITALS: PULSE 90; RESP 16; O2SAT 99
[2023-01-07 12:20] LABS: Bedside Glucose 140 mg/dL (74-106)
[2023-01-07 14:11] VITALS: BP 102/08; PULSE 70; RESP 16; TEMP 36.2; O2SAT 95
--- NOTE | 2023-01-07 14:57 | NURSING ---
ambulated pt in ortez x1 w/gaitbelt and chair follow. pt ambulated to nurses station around half the unit then back to room. Did well, stated that's the farthest I have walked assisted to bed, pt asking to sit on edge of bed for a few minutes.
[2023-01-07 16:36] LABS: Bedside Glucose 129 mg/dL (74-106)
[2023-01-07] MEDS: MELATONIN 10 MG TABLET PO (20:44)
[2023-01-07] MEDS: Atorvastatin Calcium 40 MG Tablet PO (20:44)
[2023-01-07 21:26] LABS: Bedside Glucose 176 mg/dL (74-106)
[2023-01-08] MEDS: terbinafine HCL 250 MG TABLET PO (05:01)
[2023-01-08] MEDS: Gabapentin 300 MG Capsule PO ×2 (05:01→17:30)
[2023-01-08] MEDS: FLUTICASONE/UMECLIDIN/VILANTER 1 EACH BLST.W.DEV INHALATION (05:02)
[2023-01-08] MEDS: Hydroxychloroquine 200 MG Tablet PO (05:03)
[2023-01-08] MEDS: Celecoxib 200 MG Capsule PO ×2 (05:03→17:30)
[2023-01-08] MEDS: Cyanocobalamin 500 MCG Tablet 1000 MCG PO (05:03)
[2023-01-08] MEDS: Aspirin E.C. 81 MG Tablet PO (05:03)
[2023-01-08] MEDS: Multivitamins,Ther W-Minerals Tablet 1 TABLET PO (05:03)
[2023-01-08] MEDS: Spironolactone 25 MG Tablet PO (05:04)
[2023-01-08] MEDS: Losartan Potassium 25 MG Tablet PO (05:04)
[2023-01-08] MEDS: Leflunomide 10 MG TABLET PO (05:04)
[2023-01-08] MEDS: Furosemide 40 MG Tablet PO (05:04)
[2023-01-08] MEDS: Pantoprazole Sodium 40 MG Tablet PO (05:04)
[2023-01-08] MEDS: Empagliflozin 10 MG Tablet PO (05:05)
[2023-01-08 06:41] LABS: Bedside Glucose 130 mg/dL (74-106)
[2023-01-08] MEDS: metFORMIN HCl 1,000 MG Tablet 1000 MG PO ×2 (07:28→17:31)
[2023-01-08 15:36] VITALS: BP 100/61; PULSE 86; RESP 16; TEMP 36.5; O2SAT 97
[2023-01-08] MEDS: MELATONIN 10 MG TABLET PO (20:41)
[2023-01-08] MEDS: Atorvastatin Calcium 40 MG Tablet PO (20:42)
[2023-01-08 20:46] VITALS: PULSE 80; RESP 16; O2SAT 95
[2023-01-08 21:31] LABS: Bedside Glucose 134 mg/dL (74-106)
[2023-01-09 05:25] VITALS: BP 123/79; PULSE 82
[2023-01-09] MEDS: Gabapentin 300 MG Capsule PO ×2 (05:26→18:12)
[2023-01-09] MEDS: Empagliflozin 10 MG Tablet PO (05:27)
[2023-01-09] MEDS: Aspirin E.C. 81 MG Tablet PO (05:27)
[2023-01-09] MEDS: Hydroxychloroquine 200 MG Tablet PO (05:27)
[2023-01-09] MEDS: Celecoxib 200 MG Capsule PO ×2 (05:27→18:12)
[2023-01-09] MEDS: terbinafine HCL 250 MG TABLET PO (05:27)
[2023-01-09] MEDS: Multivitamins,Ther W-Minerals Tablet 1 TABLET PO (05:28)
[2023-01-09] MEDS: Cyanocobalamin 500 MCG Tablet 1000 MCG PO (05:28)
[2023-01-09] MEDS: Spironolactone 25 MG Tablet PO (05:28)
[2023-01-09] MEDS: Losartan Potassium 25 MG Tablet PO (05:28)
[2023-01-09] MEDS: Pantoprazole Sodium 40 MG Tablet PO (05:28)
[2023-01-09] MEDS: FLUTICASONE/UMECLIDIN/VILANTER 1 EACH BLST.W.DEV INHALATION (05:39)
[2023-01-09] MEDS: Leflunomide 10 MG TABLET PO (05:40)
[2023-01-09 06:31] LABS: Bedside Glucose 141 mg/dL (74-106)
[2023-01-09] MEDS: metFORMIN HCl 1,000 MG Tablet 1000 MG PO ×2 (07:49→18:12)
--- NOTE | 2023-01-09 09:10 | NURSING ---
Addendum entered by Yun Wilcox 01/10/23 13:22: Called back from office, fidel may be removed on or after 01/11/23. Original Note: Called Dr. Sue's office to ask about order to remove fidel. Staff will ask MD and call back when they find out. Per office staff the original f/u on 01/24 was cancelled, new appt on 01/17/23 @ 1500. Updated in flowsheet.
[2023-01-09] MEDS: DULAGLUTIDE 1.5 MG/0.5 ML PEN.INJCTR SC (11:41)
--- NOTE | 2023-01-09 12:59 | NS ---
Provided written copy of first choice/daily specials menu w/ instructions on how to order. Food dislikes: broccoli, avocado, cauliflower, asparagus.
[2023-01-09 14:36] VITALS: BP 112/65; PULSE 83; RESP 16; TEMP 36.2; O2SAT 93
--- NOTE | 2023-01-09 15:02 | NURSING ---
Dressing to back removed. No drainage noted. Left [employer]. Patient c/o some itching on both sides of incision. Small blister noted on left. Dabbed areas lightly with gauze saturated in NS. Patient stated relief.
[2023-01-09] MEDS: MELATONIN 10 MG TABLET PO (20:32)
[2023-01-09] MEDS: Atorvastatin Calcium 40 MG Tablet PO (20:32)
[2023-01-09 20:37] VITALS: PULSE 88; RESP 14; O2SAT 97
[2023-01-09 21:50] LABS: Bedside Glucose 140 mg/dL (74-106)
[2023-01-10] MEDS: Gabapentin 300 MG Capsule PO ×2 (05:28→17:45)
[2023-01-10] MEDS: Celecoxib 200 MG Capsule PO ×2 (05:31→17:45)
[2023-01-10] MEDS: Losartan Potassium 25 MG Tablet PO (05:31)
[2023-01-10] MEDS: Cyanocobalamin 500 MCG Tablet 1000 MCG PO (05:31)
[2023-01-10] MEDS: terbinafine HCL 250 MG TABLET PO (05:31)
[2023-01-10] MEDS: Spironolactone 25 MG Tablet PO (05:31)
[2023-01-10] MEDS: Leflunomide 10 MG TABLET PO (05:31)
[2023-01-10] MEDS: Pantoprazole Sodium 40 MG Tablet PO (05:31)
[2023-01-10] MEDS: FLUTICASONE/UMECLIDIN/VILANTER 1 EACH BLST.W.DEV INHALATION (05:32)
--- NOTE | 2023-01-10 06:26 | NURSING ---
PATIENT CONTINUES TO DECLINE LASIX DESPITE EDUCATION, WRITTEN COMMUNICATION LEFT FOR REGARDING REFUSAL
[2023-01-10 06:41] LABS: Bedside Glucose 131 mg/dL (74-106)
[2023-01-10] MEDS: Empagliflozin 10 MG Tablet PO (07:52)
[2023-01-10] MEDS: metFORMIN HCl 1,000 MG Tablet 1000 MG PO ×2 (07:52→17:45)
[2023-01-10] MEDS: Multivitamins,Ther W-Minerals Tablet 1 TABLET PO (07:52)
[2023-01-10] MEDS: Aspirin E.C. 81 MG Tablet PO (07:53)
--- NOTE | 2023-01-10 07:54 | NURSING ---
Per pt does not take Hydroxychloroquine I stopped taking that [address] Davila updated and Hydroxychloroquine discontinued.
[2023-01-10 10:47] VITALS: BMI 31.4
[2023-01-10 14:54] VITALS: BP 111/57; PULSE 97; RESP 18; TEMP 36.4; O2SAT 98
[2023-01-10] MEDS: MELATONIN 10 MG TABLET PO (20:17)
[2023-01-10] MEDS: Atorvastatin Calcium 40 MG Tablet PO (20:18)
[2023-01-10 22:00] LABS: Bedside Glucose 131 mg/dL (74-106)
[2023-01-11] MEDS: Leflunomide 10 MG TABLET PO (05:53)
[2023-01-11] MEDS: terbinafine HCL 250 MG TABLET PO (05:53)
[2023-01-11] MEDS: Pantoprazole Sodium 40 MG Tablet PO (05:53)
[2023-01-11] MEDS: Cyanocobalamin 500 MCG Tablet 1000 MCG PO (05:53)
[2023-01-11] MEDS: FLUTICASONE/UMECLIDIN/VILANTER 1 EACH BLST.W.DEV INHALATION (05:54)
[2023-01-11] MEDS: Losartan Potassium 25 MG Tablet PO (05:54)
[2023-01-11] MEDS: Celecoxib 200 MG Capsule PO ×2 (05:54→17:52)
[2023-01-11] MEDS: Gabapentin 300 MG Capsule PO ×2 (05:54→17:52)
[2023-01-11] MEDS: Spironolactone 25 MG Tablet PO (05:54)
[2023-01-11] MEDS: metFORMIN HCl 1,000 MG Tablet 1000 MG PO ×2 (08:46→17:52)
[2023-01-11] MEDS: Empagliflozin 10 MG Tablet PO (08:46)
[2023-01-11] MEDS: Aspirin E.C. 81 MG Tablet PO (08:46)
[2023-01-11] MEDS: Multivitamins,Ther W-Minerals Tablet 1 TABLET PO (08:46)
[2023-01-11 08:50] LABS: Bedside Glucose 135 mg/dL (74-106)
--- NOTE | 2023-01-11 09:44 | CASEMGMT ---
Addendum entered by Mamie Diane 01/11/23 15:07: SW spoke with WET PLANT OPERATOR and pt about pt being adlib and DC home. Pt was granted adlib when is present. WET PLANT OPERATOR still recommending [facility] for all tasks. Pt states he is wanting to DC home 01/14. IDT agreeable. Referral faxed to [facility]. Plan: DC home with 01/14, [facility] PT/OT Original Note: Social Work IDT met with patient and for care plan meeting. Discussed patient's progress in PT/OT/SN. Educated to [facility] and Home insurance with [employer] 01/09 and continued stay is not guaranteed. Pt is requesting to DC home this weekend. PT expressed concern with pt's leg weakness. WET PLANT OPERATOR to simulate adlib in room during session today and report back to this worker. Tentatively DC set DC 01/14. Pt would like [facility] PT/OT. No DME needs. transport. SW to continue to follow. Tentative plan: DC home with 01/14, [facility] PT/OT Mamie Diane, SHANTELL MANRIQUEZW
--- NOTE | 2023-01-11 11:06 | NURSING ---
17 Chanell removed from lumbar spine. Pt tolerated well. Applied 2 steri strips at proximal end of incision. No drainage or dehiscence noted.
[2023-01-11 14:01] VITALS: BP 106/67; PULSE 80; RESP 14; TEMP 36.2; O2SAT 94
--- NOTE | 2023-01-11 14:54 | CHAPLAIN ---
Type of Pastoral Visit _x__ Initial Visit ___ Follow-up Visit ___ On-call Visit ___ General Patient Visit ___ Spiritual Assessment ___ Family Conference ___ Bereavement ___ Rapid Response ___ Code Blue ___ Other (describe below) Pastoral Care Referral From _x__ Patient ___ Family ___ Nurse ___ Physician ___ [employer] ___ Senior Service Aide ___ Other (describe below) Sacrament/Intervention _x__ Active listening ___ Anointing ___ Taoism ___ Bereavement ___ Communion _x__ Oliva exploration ___ _x__ Life review _x__ Prayer ___ Reconciliation ___ Sacrament of Sick _x__ Supportive presence ___ Wedding ___ Other (describe below) Pastoral Comments patient was resting in bed but sat up in bed in anticipation of visit with this extension associate; pt talks about his health issues and recent surgery; pt 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
--- NOTE | 2023-01-11 15:09 | CASEMGMT ---
Social Work BIMS () and PHQ-9 (10/14) completed for MDS assessment. Mamie Diane MSW SUSTAINABLE DESIGN COORDINATOR
[2023-01-11] MEDS: Atorvastatin Calcium 40 MG Tablet PO (20:11)
[2023-01-11] MEDS: MELATONIN 10 MG TABLET PO (20:13)
--- NOTE | 2023-01-11 20:42 | DS.PCM_ITS ---
Providers Date of Admission: 01/05/23 Primary Care Physician: Dr. Ovidio Guevara MD Reason For Visit: MICRODISECTOMY SPINE Diagnosis Discharge Diagnosis (1) Debility: Status: Acute Code(s): R53.81 - Other malaise (2) Thoracic spinal stenosis: Status: Acute Code(s): M48.04 - Spinal stenosis, thoracic region (3) Hyperlipidemia: Status: Acute Code(s): E78.5 - Hyperlipidemia, unspecified (4) COPD (chronic obstructive pulmonary disease): Status: Chronic Code(s): J44.9 - Chronic obstructive pulmonary disease, unspecified (5) Diabetes mellitus: Status: Acute Code(s): E11.9 - Type 2 diabetes mellitus without complications (6) Osteoarthritis: Status: Acute Code(s): M19.90 - Unspecified osteoarthritis, unspecified site (7) Rheumatoid arthritis: Status: Acute Code(s): M06.9 - Rheumatoid arthritis, unspecified (8) GERD (gastroesophageal reflux disease): Status: Acute Code(s): K21.9 - Gastro-esophageal reflux disease without esophagitis (9) History of multiple myeloma: Status: Acute Code(s): Z85.79 - Personal history of other malignant neoplasms of lymphoid, hematopoietic and related tissues Plan 72 year old male with below past medical history underwent posterior T11-T12 microdecompression surgery 12/28/[address] Bry Sue, admitted to TCU with debility, here for rehabilitation, strengthening, prior to discharge home with . * Debility - PT/OT. * Pain - Tylenol 1000mg q6h prn pain (1-3), Tramadol 50mg q6h prn pain (4-5), Oxycodone 5mg q4h prn pain (6-10). * Bowel - Miralax 17gm daily, senna/colace 2 tablets bid, MOM 30ml po x 1 prn. * Adult immunization - Administer pneumonia vaccine, covid19 vaccine, flu vaccine as appropriate. * DVT prophylaxis - Monitor. * CV prophylaxis - Aspirin 81mg daily. * Hyperlipidemia - Atorvastatin 40mg qhs. * Osteoarthritis - Celebrex 200mg bid. * Vitamin B12 deficiency - B12 1000Mcg daily. * Diabetes Mellitus II - Metformin 1000mg bidcm, Jardiance 10mg daily, Trulicity 1.5mg per week. * COPD - Trelegy 100mcg 1 puff daily. * Edema - Lasix 40mg daily, Aldactone 25mg daily. * Neuropathic pain - Gabapentin 300mg bid. * Rheumatoid arthritis - Plaquenil 200mg daily, Lefluonomide 10mg daily. * Hypertension - Losartan 25mg daily. * Insomnia - Melatonin 10mg qhs prn. * Nutrition - MVI daily. * GERD - Pantoprazole 40mg daily. * Fungal infection - Terbinafine 250mg daily thru 01/12/2023. Medications at Discharge Home Medications aspirin 81 mg tablet,delayed release 81 mg PO DAILY Heart 01/05/23 atorvastatin 40 mg tablet 40 mg PO DAILY cholesterol 01/05/23 calcium carb-ergocalciferol (vit D2) 600 mg calcium-200 unit tablet 200 tab PO DAILY Supplment 01/05/23 celecoxib 200 mg capsule 200 mg PO BID Pain 01/05/23 cholecalciferol (vitamin D3) 50 mcg (2,000 unit) tablet 50 mcg PO DAILY Supplement 01/05/23 cyanocobalamin (vitamin B-12) 1,000 mcg capsule 1,000 mcg PO DAILY Supplement 01/05/23 dapagliflozin 5 mg tablet 5 mg PO DAILY Heart 01/05/23 dulaglutide 1.5 mg/0.5 mL subcutaneous pen injector (Trulicity) 0 mg subcut MO DM 01/05/23 fluticasone fur. 100 mcg-umeclid 62.5 mcg-vilant 25 mcg inhalat.powder 1 inh inhalation DAILY Allergies 01/05/23 gabapentin 300 mg capsule 300 mg PO BID Lumbar Canal Stenosis 01/05/23 leflunomide 10 mg tablet 10 mg PO DAILY Arthritis 01/05/23 losartan 25 mg tablet 25 mg PO DAILY BP 01/05/23 metformin 1,000 mg tablet 1,000 mg PO BID DM 01/05/23 mometasone-formoterol HFA 200 mcg-5 mcg/actuation aerosol inhaler (Dulera) 2 puff inhalation BID COPD 01/05/23 multivitamin 1 tab PO DAILY Supplement 01/05/23 multivitamin with minerals 1 tab PO DAILY Supplement 01/05/23 omeprazole 40 mg capsule,delayed release 40 mg PO DAILY GERD 01/05/23 spironolactone 25 mg tablet 25 mg PO DAILY BP 01/05/23 tadalafil 20 mg tablet 20 mg PO X1 PRN Erectile Dysfunction 01/05/23 terbinafine HCl 250 mg tablet 250 mg PO DAILY Antifungal 01/05/23 fluticasone fur. 100 mcg-umeclid 62.5 mcg-vilant 25 mcg inhalat.powder (Trelegy Ellipta) 1 ea inhalation DAILY #0 ea 01/11/23 Hospital Course Operations - (See below.) Procedures None Summary of Care Provided Minutes Spent on Discharge: 35 Hospital Course: 72 year old male with below past medical history underwent posterior T11-T12 microdecompression surgery 12/28/[address] Bry Sue, admitted to TCU with debility, here for rehabilitation, strengthening, prior to discharge home with . Discharge home with 01/14/2023, [employer] [facility] PT/OT. Physical Exam Const alert General Appearance: cooperative HEENT normocephalic Eyes PERRL and EOMs intact bilaterally Neck supple, no JVD and no carotid bruits Resp normal respiratory effort, normal air movement and clear to auscultation bilaterally Cardio regular rate and regular rhythm GI normal to inspection, nondistended, normoactive bowel sounds, non-tender and non-distended Extremity normal capillary refill General Extremity: Negative for edema Skin no rashes or lesions noted General Skin Exam: no breakdown Psych affect normal Appearance: appropriate Weight / BMI Weight Weight: 96.479 kg Body Mass Index (BMI) 31.4 ABG / Lab / Microbiology Data Result Diagrams: 01/06/23 05:26 01/06/23 05:26 Laboratory: Laboratory Results - last 24 hr 01/10/23 21:37: POC Glucose 131 H 01/11/23 05:58: POC Glucose 135 H Microbiology: Microbiology 01/09/23 06:30 Nasal Secretion SARS-CoV-2 Antigen (Rapid) - Final 01/07/23 06:22 Nasal Secretion SARS-CoV-2 Antigen (Rapid) - Final 01/05/23 08:44 Nasal Secretion SARS-CoV-2 Antigen (Rapid) - Final D/C Instructions Discharge Diet: No restrictions Discharge Activity: Return to Normal Activity, May Shower and Use Walker Weight Bearing Status: Weight bearing as tolerated Call your doctor if you observe: Fever of 101 or Higher, Inability to urinate, Inability to have a bowel movement, Shortness of breath, Dizziness, Fainting spells, Swelling in the ankles, Chest pain and Uncontrolled pain Additional Instructions: Discharge home with 01/14/2023, [employer] [facility] PT/OT. Please Follow Up With: Bry Sue MD When: As scheduled. Meaningful Use Info Meaningful Use Diagnoses (Choose all that apply): None applicable Discharge Plan Admission Admit Date/Time: 01/05/23 14:55 Primary Reason for Your Visit: Debility. Attending Provider: Shabbir Davila Chi Primary Care Provider: Ovidio Guevara Instructions Additional Instructions / Restrictions: Discharge home with 01/14/2023, [employer] [facility] PT/OT. Discharge Orders/Prescriptions Prescriptions: New Trelegy Ellipta 100-62.5-25 mcg Blister With Device 1 ea inhalation DAILY Qty: 0 0RF Continued atorvastatin 40 mg tablet 40 mg PO DAILY aspirin 81 mg tablet,delayed release (DR/EC) 81 mg PO DAILY Label Comments: take 1 tablet by mouth once daily gabapentin 300 mg capsule 300 mg PO BID celecoxib 200 mg Capsule 200 mg PO BID cholecalciferol (vitamin D3) 50 mcg (2,000 unit) tablet 50 mcg PO DAILY Label Comments: take 1 tablet by mouth once daily dapagliflozin 5 mg Tablet 5 mg PO DAILY Trulicity 1.5 mg/0.5 mL pen injector 0 mg SUBCUT MO Label Comments: inject 0.5 milliliters ( 1 AND 1/2 milligrams ) subcutaneously ONCE A WEEK (DISCARD PEN AFTER USE) cyanocobalamin (vitamin B-12) 1,000 mcg Capsule 1,000 mcg PO DAILY cutmuznnivr-zehvaitya-ezxmpxwi 100-62.5-25 mcg Blister With Device 1 inh INHALATION DAILY leflunomide 10 mg Tablet 10 mg PO DAILY omeprazole 40 mg capsule,delayed release(DR/EC) 40 mg PO DAILY Label Comments: take 1 capsule by mouth once daily ON AN EMPTY STOMACH spironolactone 25 mg Tablet 25 mg PO DAILY metformin 1,000 mg tablet 1,000 mg PO BID losartan 25 mg tablet 25 mg PO DAILY multivitamin with minerals Tablet 1 tab PO DAILY tadalafil 20 mg tablet 20 mg PO X1 PRN (Reason: Erectile Dysfunction) Dulera 200-5 mcg/actuation Hfa Aerosol Inhaler 2 puff INHALATION BID terbinafine HCl 250 mg Tablet 250 mg PO DAILY calcium carbonate-vitamin D2 600 mg calcium- 200 unit Tablet 200 tab PO DAILY multivitamin Tablet 1 tab PO DAILY Discontinued docusate sodium [Colace] 100 mg Capsule 100 mg PO BID PRN (Reason: Constipation) oxycodone 5 mg tablet 5 mg PO Q6H PRN (Reason: Pain (Scale Score 6-10)) furosemide 40 mg tablet 40 mg PO DAILY Label Comments: take 1 tablet by mouth twice a day hydroxychloroquine 200 mg tablet 200 mg PO DAILY Label Comments: take 1 tablet by mouth twice a day torsemide 10 mg tablet 10 mg PO DAILY Referrals / Follow Up: Ovidio Guevara MD [Primary Care Provider] - Disposition Disposition (needs filled in before D/C Order can be placed): Home, Self Care
[2023-01-11 22:00] VITALS: PULSE 88; RESP 16; O2SAT 95
[2023-01-11 22:10] LABS: Bedside Glucose 147 mg/dL (74-106)
[2023-01-12] MEDS: Cyanocobalamin 500 MCG Tablet 1000 MCG PO (05:19)
[2023-01-12] MEDS: Gabapentin 300 MG Capsule PO ×2 (05:19→17:56)
[2023-01-12] MEDS: Spironolactone 25 MG Tablet PO (05:20)
[2023-01-12] MEDS: Leflunomide 10 MG TABLET PO (05:20)
[2023-01-12] MEDS: terbinafine HCL 250 MG TABLET PO (05:20)
[2023-01-12] MEDS: Celecoxib 200 MG Capsule PO ×2 (05:20→17:56)
[2023-01-12] MEDS: Losartan Potassium 25 MG Tablet PO (05:20)
[2023-01-12] MEDS: Pantoprazole Sodium 40 MG Tablet PO (05:20)
[2023-01-12] MEDS: FLUTICASONE/UMECLIDIN/VILANTER 1 EACH BLST.W.DEV INHALATION (05:20)
[2023-01-12 06:35] LABS: Bedside Glucose 138 mg/dL (74-106)
[2023-01-12] MEDS: Multivitamins,Ther W-Minerals Tablet 1 TABLET PO (08:15)
[2023-01-12] MEDS: Aspirin E.C. 81 MG Tablet PO (08:15)
[2023-01-12] MEDS: metFORMIN HCl 1,000 MG Tablet 1000 MG PO ×2 (08:15→17:56)
[2023-01-12] MEDS: Empagliflozin 10 MG Tablet PO (08:15)
--- NOTE | 2023-01-12 11:56 | MDS.RN ---
MDS Pain interview for SHEILA 01/12/23 completed.
[2023-01-12 14:02] VITALS: BP 115/73; PULSE 90; RESP 16; TEMP 36.3; O2SAT 95
[2023-01-12 20:00] VITALS: PULSE 71; RESP 16; O2SAT 93
[2023-01-12] MEDS: MELATONIN 10 MG TABLET PO (20:44)
[2023-01-12] MEDS: Atorvastatin Calcium 40 MG Tablet PO (20:45)
[2023-01-12 22:05] LABS: Bedside Glucose 127 mg/dL (74-106)
[2023-01-13] MEDS: Celecoxib 200 MG Capsule PO ×2 (05:51→17:11)
[2023-01-13] MEDS: Spironolactone 25 MG Tablet PO (05:51)
[2023-01-13] MEDS: Losartan Potassium 25 MG Tablet PO (05:51)
[2023-01-13] MEDS: Leflunomide 10 MG TABLET PO (05:51)
[2023-01-13] MEDS: Cyanocobalamin 500 MCG Tablet 1000 MCG PO (05:51)
[2023-01-13] MEDS: Pantoprazole Sodium 40 MG Tablet PO (05:51)
[2023-01-13] MEDS: FLUTICASONE/UMECLIDIN/VILANTER 1 EACH BLST.W.DEV INHALATION (05:53)
[2023-01-13] MEDS: Gabapentin 300 MG Capsule PO ×2 (05:58→17:11)
[2023-01-13 05:59] LABS: Absolute Lymphocyte Count 0.75 X10^3/uL (0.83-4.51); Basophil# 0.02 X10^3/uL; Basophil% 0.5 % (0-1); Eosinophil# 0.03 X10^3/uL; Eosinophils% 0.7 % (0-5); Hematocrit 43.3 % (40-54); Hemoglobin 13.9 g/dL (13.0-16.5); Lymphocyte # 0.75 X10^3/ul (0.83-4.51); Lymphocyte % 17.5 % (19-41); Mean Corp Hgb Conc 32.1 g/dL (32-36); Mean Corpuscular Hgb 28.3 pg (27.0-32.0); Mean Corpuscular Volume 88.2 fL (80-94); Mean Platelet Vol. 9.7 fl (6.2-12.0); Monocyte# 0.38 X10^3/uL; Monocyte% 8.9 % (0-10); NRBC Flagged by Analyzer 0 % (0-5); Neutrophil # 3.04 X10^3/uL (2.7-7.7); Neutrophil % 70.8 % (47-70); Platelet Count 141 K/mm3 (150-450); RBC Distribution Width CV 17.6 % (11.6-14.6); RBC Distribution Width SD 56.4 fl (35.1-43.9); Red Blood Count 4.91 M/mm3 (4.6-6.2); White Blood Count 4.3 K/mm3 (4.4-11.0)
[2023-01-13 06:23] LABS: Anion Gap 5 (5-15); BUN 19 mg/dL (7-18); BUN/Creat Ratio 19.3 RATIO (10-20); Calcium,Total 8.9 mg/dL (8.5-10.1); Chloride 106 mmol/L (98-107); Creatinine, Serum 0.98 mg/dL (0.70-1.30); EST Glomerular Filtration Rate 80 mL/min (>60); Est Glom Filt Rate - Afr Amer 96 mL/min (>60); Estimated Creatinine Clearance 69.14 ml/min; Glucose 122 mg/dL (74-106); Potassium 4.8 mmol/L (3.5-5.1); Sodium Level 137 mmol/L (136-145)
[2023-01-13 06:36] LABS: Bedside Glucose 111 mg/dL (74-106)
[2023-01-13] MEDS: metFORMIN HCl 1,000 MG Tablet 1000 MG PO ×2 (08:00→17:11)
[2023-01-13] MEDS: Aspirin E.C. 81 MG Tablet PO (08:00)
[2023-01-13] MEDS: Empagliflozin 10 MG Tablet PO (08:00)
[2023-01-13] MEDS: Multivitamins,Ther W-Minerals Tablet 1 TABLET PO (08:00)
[2023-01-13] MEDS: Tuberculin,Purif.prot.deriv. 50 TU/ML Vial 0.1 ML ID (09:32)
[2023-01-13] MEDS: Furosemide 40 MG Tablet PO (09:32)
[2023-01-13 15:45] VITALS: BP 118/56; PULSE 82; RESP 16; TEMP 36.2; O2SAT 93
[2023-01-13] MEDS: Senna/Docusate Sodium 1 Tablet 2 TABLET PO (17:11)
[2023-01-13] MEDS: MELATONIN 10 MG TABLET PO (20:19)
[2023-01-13] MEDS: Atorvastatin Calcium 40 MG Tablet PO (20:19)
[2023-01-13 22:16] LABS: Bedside Glucose 171 mg/dL (74-106)
[2023-01-14] MEDS: Pantoprazole Sodium 40 MG Tablet PO (05:48)
[2023-01-14] MEDS: Celecoxib 200 MG Capsule PO (05:48)
[2023-01-14] MEDS: Leflunomide 10 MG TABLET PO (05:48)
[2023-01-14] MEDS: Cyanocobalamin 500 MCG Tablet 1000 MCG PO (05:48)
[2023-01-14] MEDS: Losartan Potassium 25 MG Tablet PO (05:48)
[2023-01-14] MEDS: Spironolactone 25 MG Tablet PO (05:48)
[2023-01-14] MEDS: Furosemide 40 MG Tablet PO (05:48)
[2023-01-14] MEDS: FLUTICASONE/UMECLIDIN/VILANTER 1 EACH BLST.W.DEV INHALATION (05:50)
[2023-01-14] MEDS: Gabapentin 300 MG Capsule PO (05:53)
[2023-01-14 06:11] VITALS: BP 98/71; PULSE 87; RESP 16
[2023-01-14 06:36] LABS: Bedside Glucose 136 mg/dL (74-106)
[2023-01-14] MEDS: metFORMIN HCl 1,000 MG Tablet 1000 MG PO (07:50)
[2023-01-14] MEDS: Multivitamins,Ther W-Minerals Tablet 1 TABLET PO (07:50)
[2023-01-14] MEDS: Aspirin E.C. 81 MG Tablet PO (07:50)
[2023-01-14] MEDS: Empagliflozin 10 MG Tablet PO (07:50)
--- NOTE | 2023-01-17 12:34 | MDS.RN ---
Information for MDS was obtained from review of the clinical record interview of resident, staff, & direct observation of residents care.
== END 2023-01-14 09:45 | disposition home or self-care (01) | DRG 560 ==
PROVIDERS: Admitting Provider Family Medicine Geriatric Medicine; PCP Family Medicine; Visit Provider Family Medicine Geriatric Medicine
DX: Z47.89 Encounter for other orthopedic aftercare (principal); B49 Unspecified mycosis; Z94.81 Bone marrow transplant status; E11.40 Type 2 diabetes mellitus with diabetic neuropathy, unspecified; J44.9 Chronic obstructive pulmonary disease, unspecified; M06.9 Rheumatoid arthritis, unspecified; M48.04 Spinal stenosis, thoracic region; K21.9 Gastro-esophageal reflux disease without esophagitis; E53.8 Deficiency of other specified B group vitamins; E78.5 Hyperlipidemia, unspecified; I10 Essential (primary) hypertension; M19.90 Unspecified osteoarthritis, unspecified site; Z79.84 Long term (current) use of oral hypoglycemic drugs; Z79.82 Long term (current) use of aspirin; G47.00 Insomnia, unspecified; Z79.51 Long term (current) use of inhaled steroids; Z87.891 Personal history of nicotine dependence; Z79.899 Other long term (current) drug therapy
CPT/HCPCS: 36415; 80048; 82962; 85025; 87426; 87811; 97110; 97116; 97162; 97166; 97530; 97535; 97802

== ENCOUNTER 2023-02-10 08:13 | Emergency (ER) | payer MEDICARE, SELFPAY ==
[2023-02-10 08:14] VITALS: BP 154/87; PULSE 77; RESP 14; TEMP 36.2; O2SAT 97; BMI 31.7
--- NOTE | 2023-02-10 08:41 | EKG12_ITS ---
Test Reason : EDEMA Blood Pressure : / mmHG Vent. Rate : 078 BPM Atrial Rate : 078 BPM P-R Int : 128 ms QRS Dur : 098 ms QT Int : 376 ms P-R-T Axes : 014 019 012 degrees QTc Int : 428 ms Sinus rhythm with Premature atrial complexes Otherwise normal ECG Confirmed by ROBERT JOHNSON, LOUIE ([id number]), desk editor SHELDON FORDE ([id number]) on 02/14/2023 10:11:16 AM Referred By: Confirmed By:LOUIE JONES MD
[2023-02-10 08:54] LABS: Absolute Lymphocyte Count 0.64 X10^3/uL (0.83-4.51); Basophil# 0.01 X10^3/uL; Basophil% 0.3 % (0-1); Eosinophil# 0.03 X10^3/uL; Eosinophils% 0.8 % (0-5); Hemoglobin 13.9 g/dL (13.0-16.5); Lymphocyte # 0.64 X10^3/ul (0.83-4.51); Mean Corp Hgb Conc 31.6 g/dL (32-36); Mean Corpuscular Volume 88.5 fL (80-94); Mean Platelet Vol. 9.9 fl (6.2-12.0); Monocyte# 0.33 X10^3/uL; Monocyte% 8.3 % (0-10); NRBC Flagged by Analyzer 0 % (0-5); Neutrophil # 2.96 X10^3/uL (2.7-7.7); Neutrophil % 73.8 % (47-70); Platelet Count 184 K/mm3 (150-450); RBC Distribution Width CV 16.4 % (11.6-14.6); RBC Distribution Width SD 52.9 fl (35.1-43.9); Red Blood Count 4.97 M/mm3 (4.6-6.2)
[2023-02-10] MEDS: Aspirin 81 MG TAB.CHEW 324 MG PO (08:56)
--- NOTE | 2023-02-10 09:00 | RAD_ITS ---
STUDY: X-RAY CHEST REASON FOR EXAM: Male, 72 years old. Chest pain TECHNIQUE: Frontal and lateral views of the chest COMPARISON: Chest CT dated 08/30/2022 FINDINGS: The lungs are clear. There are no pleural effusions. There is no pneumothorax. The heart is normal in size. The patient is status post right shoulder arthroplasty. RAD/Chest PA and Lateral IMPRESSION: No acute thoracic pathology. Electronically Signed: Omi Hi MD at 9:34 EDT ,
[2023-02-10 09:10] LABS: BNP,B-Type NATRIURETIC PEPTIDE 106.1 pg/mL (0-100)
[2023-02-10 09:12] LABS: Anion Gap 7 (5-15); BUN 26 mg/dL (7-18); BUN/Creat Ratio 24.5 RATIO (10-20); Calcium,Total 8.9 mg/dL (8.5-10.1); Chloride 106 mmol/L (98-107); Creatinine, Serum 1.06 mg/dL (0.70-1.30); EST Glomerular Filtration Rate 73 mL/min (>60); Est Glom Filt Rate - Afr Amer 88 mL/min (>60); Estimated Creatinine Clearance 63.92 ml/min; Glucose 148 mg/dL (74-106); Magnesium 1.5 mg/dL (1.6-2.6); Potassium 4.4 mmol/L (3.5-5.1); Sodium Level 141 mmol/L (136-145); Troponin-I HS (w/2H Reflex) 20 pg/mL (3.0-78.0)
--- NOTE | 2023-02-10 10:07 | EX.ED.DYSGE1 ---
HPI History of Present Illness Chief Complaint: Edema Narrative Narrative: Patient is a 72-year-old male who is presenting to the ER today with chief complaint of bilateral equal swelling to his legs for the past couple weeks. Patient has no chest pain, shortness of breath. Patient called his doctor's office, and patient was recommended to come to the ER to be evaluated for bilateral lower extremity, and they were concerned about possible blood clot. Patient has no unilateral swelling to his lower extremity, he has no chest pain, shortness of breath. No pain to the posterior aspect of his leg. Patient's is here as well. Patient is taking torsemide 10 mg daily. Patient does have compression stockings at home but is not using. Patient has no recent traveling. Patient did have back surgery several months ago, but patient been doing therapy, moving around, he has not been sedentary significantly in the past few months since his lower back surgery. No abdominal pain, nausea vomiting, no other acute complaints PFSH [facility] Medical History (Updated 02/10/23 @ 11:[address] Ovidio Coburn, DO) COPD (chronic obstructive pulmonary disease) Debility Diabetes mellitus GERD (gastroesophageal reflux disease) History of multiple myeloma Hyperlipidemia Hypertension Osteoarthritis Rheumatoid arthritis Thoracic spinal stenosis Home Medications aspirin 81 mg tablet,delayed release 81 mg PO DAILY Heart 01/05/23 [History Last Taken Unknown] atorvastatin 40 mg tablet 40 mg PO DAILY cholesterol 01/05/23 [History Last Taken Unknown] calcium carb-ergocalciferol (vit D2) 600 mg calcium-200 unit tablet 200 tab PO DAILY Supplment 01/05/23 [History Last Taken Unknown] celecoxib 200 mg capsule 200 mg PO BID Pain 01/05/23 [History Last Taken Unknown] cholecalciferol (vitamin D3) 50 mcg (2,000 unit) tablet 50 mcg PO DAILY Supplement 01/05/23 [History Last Taken Unknown] cyanocobalamin (vitamin B-12) 1,000 mcg capsule 1,000 mcg PO DAILY Supplement 01/05/23 [History Last Taken Unknown] dapagliflozin 5 mg tablet 5 mg PO DAILY Heart 01/05/23 [History Last Taken Unknown] dulaglutide 1.5 mg/0.5 mL subcutaneous pen injector (Trulicity) 0 mg subcut MO DM 01/05/23 [History Last Taken Unknown] fluticasone fur. 100 mcg-umeclid 62.5 mcg-vilant 25 mcg inhalat.powder 1 inh inhalation DAILY Allergies 01/05/23 [History Last Taken Unknown] gabapentin 300 mg capsule 300 mg PO BID Lumbar Canal Stenosis 01/05/23 [History Last Taken Unknown] leflunomide 10 mg tablet 10 mg PO DAILY Arthritis 01/05/23 [History Last Taken Unknown] losartan 25 mg tablet 25 mg PO DAILY BP 01/05/23 [History Last Taken Unknown] metformin 1,000 mg tablet 1,000 mg PO BID DM 01/05/23 [History Last Taken Unknown] mometasone-formoterol HFA 200 mcg-5 mcg/actuation aerosol inhaler (Dulera) 2 puff inhalation BID COPD 01/05/23 [History Last Taken Unknown] multivitamin 1 tab PO DAILY Supplement 01/05/23 [History Last Taken Unknown] multivitamin with minerals 1 tab PO DAILY Supplement 01/05/23 [History Last Taken Unknown] omeprazole 40 mg capsule,delayed release 40 mg PO DAILY GERD 01/05/23 [History Last Taken Unknown] spironolactone 25 mg tablet 25 mg PO DAILY BP 01/05/23 [History Last Taken Unknown] tadalafil 20 mg tablet 20 mg PO X1 PRN Erectile Dysfunction 01/05/23 [History Last Taken Unknown] terbinafine HCl 250 mg tablet 250 mg PO DAILY Antifungal 01/05/23 [History Last Taken Unknown] fluticasone fur. 100 mcg-umeclid 62.5 mcg-vilant 25 mcg inhalat.powder (Trelegy Ellipta) 1 ea inhalation DAILY #0 ea 01/11/23 [Rx Last Taken Unknown] Allergy/AdvReac Type Severity Reaction Status Date / Time No Known Allergies Allergy Verified 02/10/23 08:16 Family History Father Cancer, Onset Age: 52 Pancreatic cancer. Surgical History History of bone marrow transplant History of lumbar fusion History of reverse total replacement of right shoulder joint History of total right knee replacement (TKR) Hx of fusion of cervical spine Social History (Updated 01/05/23 @ 19:[address] Shabbir Davila MD) household members: spouse Smoking Status: Former smoker quit date: 09/18/12 alcohol intake: never substance use type: does not use ROS ROS ED ROS Narrative REVIEW OF SYSTEMS: Unless otherwise stated in this report the patient's positive and negative responses for review of systems for constitutional, eyes, ENT, cardiovascular, respiratory, gastrointestinal, neurological, , musculoskeletal, and integument systems and related systems to the presenting problem are either stated in the history of present illness or were not pertinent or were negative for the symptoms and/or complaints related to the presenting medical problem. EXAM Physical Exam Narrative Exam Narrative: Vital signs reviewed and patient is not hypoxic. General: The patient appears well and in no apparent distress. Patient is resting comfortably on cart. Not toxic, lethargic, or listless. Skin: Warm, dry, no pallor noted. There is no rash noted. Head: Normocephalic, atraumatic Eye: Normal conjunctiva, no drainage, EOMI. PERRL. Ears, Nose, Mouth, and Throat: oral mucosa is moist. Nares patent. Mouth without vesicles. Cardiovascular: Regular Rate and Rhythm, no murmurs, gallops, or rubs Respiratory: Patient is in no distress, no accessory muscle use, lungs are clear to auscultation, no wheezing, rales or rhonchi Back: non-tender, no CVA tenderness bilaterally to percussion. NO CTLS midline or paraspinal tenderness to palpation. GI: Soft, no tenderness to palpation, no masses appreciated. No rebound, guarding, or rigidity noted. Musculoskeletal: The patient has full range of motion of all extremities and joints with no difficulty. Patient has no motor, no sensory deficits. Patient has 3+ pitting edema to bilateral lower extremities, equal, bilateral. Patient has no pain to the posterior aspect of bilateral calves, popliteal fossa, and posterior thighs. No signs of DVT, no unilateral swelling, patient and are educated concerning this. No testing indicated. Neurological: A&O x4, normal speech, no focal neurological deficits. Psychiatric: Cooperative Const Vital Signs: 02/10/23 08:14 02/10/23 08:36 02/10/23 12:01 Temperature 97.1 F L Temperature Source Temporal Pulse Rate 77 87 Respiratory Rate 14 Respiratory Pattern Normal Blood Pressure 154/87 H Blood Pressure Mean 109 Pulse Ox 97 98 Oxygen Delivery Method Room Air Room Air 02/10/23 12:01 Temperature Temperature Source Pulse Rate 87 Respiratory Rate Respiratory Pattern Blood Pressure Blood Pressure Mean Pulse Ox 98 Oxygen Delivery Method [facility] Lab Data Attestation: I reviewed the patient's lab results. Labs: Laboratory Results - last 24 hr 02/10/23 02/10/23 02/10/23 08:45 08:45 08:45 WBC 4.0 L RBC 4.97 Hgb 13.9 Hct 44.0 MCV 88.5 MCH 28.0 MCHC 31.6 L RDW Std Deviation 52.9 H RDW Coeff of Dann 16.4 H Plt Count 184 MPV 9.9 Immature Gran % (Auto) 0.800 Neut % (Auto) 73.8 H Lymph % (Auto) 16.0 L Gila % (Auto) 8.3 Eos % (Auto) 0.8 Baso % (Auto) 0.3 Absolute Neuts (auto) 3.0 Absolute Lymphs (auto) 0.64 L Nucleated RBC % 0 Sodium 141 Potassium 4.4 Chloride 106 Carbon Dioxide 28.0 Anion Gap 7 BUN 26 H Creatinine 1.06 Estim Creat Clear Calc 63.92 Est GFR (MDRD) Af Amer 88 Est GFR (MDRD) Non-Af 73 BUN/Creatinine Ratio 24.5 H Glucose 148 H Calcium 8.9 Magnesium 1.5 L Troponin I High Sens 20 B-Natriuretic Peptide 106.1 H 02/10/23 10:55 WBC RBC Hgb Hct MCV MCH MCHC RDW Std Deviation RDW Coeff of Dann Plt Count MPV Immature Gran % (Auto) Neut % (Auto) Lymph % (Auto) Gila % (Auto) Eos % (Auto) Baso % (Auto) Absolute Neuts (auto) Absolute Lymphs (auto) Nucleated RBC % Sodium Potassium Chloride Carbon Dioxide Anion Gap BUN Creatinine Estim Creat Clear Calc Est GFR (MDRD) Af Amer Est GFR (MDRD) Non-Af BUN/Creatinine Ratio Glucose Calcium Magnesium Troponin I High Sens 22 B-Natriuretic Peptide Radiography Chest X-Ray - ED: 2 View and Read by ED Physician (Chest x-ray shows no acute cardiopulmonary disease, no infiltrate, no effusion.) Diagnostic Testing: Clinical Impression(s) from Imaging Studies Chest X-Ray 02/10/23 09:00 IMPRESSION: No acute thoracic pathology. Electronically Signed: Omi Hi MD at 9:34 EDT , EKG Initial EKG: Comments: EKG interpretation. Normal sinus rhythm at 78 beats a minute. Normal axis deviation. No acute ST elevation, no acute ectopy. QTc of 428 Additional Tests and Interventions Additional Tests or Interventions: Education was done on increasing patient's torsormide from 0mg to 40mg for the next 3 days. Education was also done on using lift to the lower part of the bed to help with elevation during nighttime when he sleeping. Patient did mention that during the morning, his legs are not as swollen, and as the day goes on, they are more swollen in the evening. Patient was recommended to wear the compression stockings that he already has at home. Patient is to follow-up with PCP for any other further testing needed. Patient and his are educated on DVT, patient has no signs or symptoms of DVT. No unilateral swelling. No pain to the posterior aspect of his bilateral lower extremities. No chest pain, no shortness of breath, patient feels very comfortable going home with increasing his torsemide and following up with PCP on Monday or Monday Discharge Plan Triage Chief Complaint: Edema ED Provider: Ovidio Coburn Dx/Rx/DC Orders Clinical Impression: Bilateral edema of lower extremity Instructions: ED Peripheral Edema, Bilateral Prescriptions: No Action atorvastatin 40 mg tablet 40 mg PO DAILY aspirin 81 mg tablet,delayed release (DR/EC) 81 mg PO DAILY Label Comments: take 1 tablet by mouth once daily gabapentin 300 mg capsule 300 mg PO BID celecoxib 200 mg Capsule 200 mg PO BID cholecalciferol (vitamin D3) 50 mcg (2,000 unit) tablet 50 mcg PO DAILY Label Comments: take 1 tablet by mouth once daily dapagliflozin 5 mg Tablet 5 mg PO DAILY Trulicity 1.5 mg/0.5 mL pen injector 0 mg SUBCUT MO Label Comments: inject 0.5 milliliters ( 1 AND 1/2 milligrams ) subcutaneously ONCE A WEEK (DISCARD PEN AFTER USE) cyanocobalamin (vitamin B-12) 1,000 mcg Capsule 1,000 mcg PO DAILY [id number] 100-62.5-25 mcg Blister With Device 1 inh INHALATION DAILY leflunomide 10 mg Tablet 10 mg PO DAILY omeprazole 40 mg capsule,delayed release(DR/EC) 40 mg PO DAILY Label Comments: take 1 capsule by mouth once daily ON AN EMPTY STOMACH spironolactone 25 mg Tablet 25 mg PO DAILY metformin 1,000 mg tablet 1,000 mg PO BID losartan 25 mg tablet 25 mg PO DAILY multivitamin with minerals Tablet 1 tab PO DAILY tadalafil 20 mg tablet 20 mg PO X1 PRN (Reason: Erectile Dysfunction) Dulera 200-5 mcg/actuation Hfa Aerosol Inhaler 2 puff INHALATION BID terbinafine HCl 250 mg Tablet 250 mg PO DAILY calcium carbonate-vitamin D2 600 mg calcium- 200 unit Tablet 200 tab PO DAILY multivitamin Tablet 1 tab PO DAILY Trelegy Ellipta 100-62.5-25 mcg Blister With Device 1 ea inhalation DAILY Qty: 0 0RF Primary Care Provider: Ovidio Guevara Referrals: Ovidio Guevara MD [Primary Care Provider] - Activity Restrictions/Additional Instructions: Increase your Toursomide from 20 mg a day to 40 mg a day today and Monday, and also on Monday and Monday. Call today to make a follow-up appointment with your PCP on Monday or Monday. Elevate your legs at nighttime as discussed, use bed lifts for the end of your bed to help elevate your bed 1 to 2 feet while sleeping. Use your compression stockings daily. Disposition Disposition: Home, Self Care Discharge Date/Time: 02/10/23 12:02
[2023-02-10 10:51] LABS: Reflex Troponin-HS? (from REC) Y
[2023-02-10 11:21] LABS: Troponin-I HS 22 pg/mL (3.0-78.0)
[2023-02-10 12:01] VITALS: PULSE 87; O2SAT 98
== END 2023-02-10 12:02 | disposition home or self-care (01) ==
PROVIDERS: Emergency Provider Emergency Medicine; PCP Family Medicine; Visit Provider Emergency Medicine
DX: R60.0 Localized edema (principal); J44.9 Chronic obstructive pulmonary disease, unspecified; E11.9 Type 2 diabetes mellitus without complications; Z87.891 Personal history of nicotine dependence; E78.5 Hyperlipidemia, unspecified; I10 Essential (primary) hypertension
CPT/HCPCS: 71046; 80048; 83735; 83880; 84484; 85025; 93005; 99284; A4216

== ENCOUNTER 2023-02-17 12:20 | Emergency (ER) | payer MEDICARE, SELFPAY ==
[2023-02-17 12:21] VITALS: BP 139/91; PULSE 63; RESP 16; TEMP 36.6; O2SAT 94; BMI 34.3
--- NOTE | 2023-02-17 12:37 | EX.ED.DYSGE1 ---
HPI <PINA Yoo - Last Filed: 02/17/23 13:02> History of Present Illness Chief Complaint: Edema Narrative Narrative: Patient presenting today due to bilateral DVT that were diagnosed this morning. Patient's PCP ordered an outpatient venous duplex ultrasound bilaterally due to bilateral lower extremity edema that he has had for the past 2-1/2 weeks. He denies any prior history of blood clots, shortness of breath, chest pain, fever, and chills. Patient reports that he was seen last Monday in the ED for his lower extremity edema and they encouraged him to increase his Lasix and follow-up with his PCP. Patient did have a back procedure performed on 12/28/2022 and was immobile for period of time but is now in physical therapy. PMH includes diabetes mellitus, COPD, hyperlipidemia, and multiple myeloma in remission. <Dr. Adam Bridges DO - Last Filed: 02/17/23 22:18> Narrative Narrative: Patient presenting today due to bilateral DVT that were diagnosed this morning. Patient's PCP ordered an outpatient venous duplex ultrasound bilaterally due to bilateral lower extremity edema that he has had for the past 2-1/2 weeks. He denies any prior history of blood clots, shortness of breath, chest pain, fever, and chills. Patient reports that he was seen last Monday in the ED for his lower extremity edema and they encouraged him to increase his Lasix and follow-up with his PCP. Patient did have a back procedure performed on 12/28/2022 and was immobile for period of time but is now in physical therapy. PMH includes diabetes mellitus, COPD, hyperlipidemia, and multiple myeloma in remission. PFSH <PINA Yoo - Last Filed: 02/17/23 13:02> PFSH Medical History COPD (chronic obstructive pulmonary disease) Debility Diabetes mellitus GERD (gastroesophageal reflux disease) History of multiple myeloma Hyperlipidemia Hypertension Osteoarthritis Rheumatoid arthritis Thoracic spinal stenosis Home Medications aspirin 81 mg tablet,delayed release 81 mg PO DAILY Heart 01/05/23 [History Last Taken Unknown] atorvastatin 40 mg tablet 40 mg PO DAILY cholesterol 01/05/23 [History Last Taken Unknown] calcium carb-ergocalciferol (vit D2) 600 mg calcium-200 unit tablet 200 tab PO DAILY Supplment 01/05/23 [History Last Taken Unknown] celecoxib 200 mg capsule 200 mg PO BID Pain 01/05/23 [History Last Taken Unknown] cholecalciferol (vitamin D3) 50 mcg (2,000 unit) tablet 50 mcg PO DAILY Supplement 01/05/23 [History Last Taken Unknown] cyanocobalamin (vitamin B-12) 1,000 mcg capsule 1,000 mcg PO DAILY Supplement 01/05/23 [History Last Taken Unknown] dapagliflozin propanediol 5 mg tablet 5 mg PO DAILY Heart 01/05/23 [History Last Taken Unknown] dulaglutide 1.5 mg/0.5 mL subcutaneous pen injector (Trulicity) 0 mg subcut MO DM 01/05/23 [History Last Taken Unknown] fluticasone fur. 100 mcg-umeclid 62.5 mcg-vilant 25 mcg inhalat.powder 1 inh inhalation DAILY Allergies 01/05/23 [History Last Taken Unknown] gabapentin 300 mg capsule 300 mg PO BID Lumbar Canal Stenosis 01/05/23 [History Last Taken Unknown] leflunomide 10 mg tablet 10 mg PO DAILY Arthritis 01/05/23 [History Last Taken Unknown] losartan 25 mg tablet 25 mg PO DAILY BP 01/05/23 [History Last Taken Unknown] metformin 1,000 mg tablet 1,000 mg PO BID DM 01/05/23 [History Last Taken Unknown] mometasone-formoterol HFA 200 mcg-5 mcg/actuation aerosol inhaler (Dulera) 2 puff inhalation BID COPD 01/05/23 [History Last Taken Unknown] multivitamin 1 tab PO DAILY Supplement 01/05/23 [History Last Taken Unknown] multivitamin with minerals 1 tab PO DAILY Supplement 01/05/23 [History Last Taken Unknown] omeprazole 40 mg capsule,delayed release 40 mg PO DAILY GERD 01/05/23 [History Last Taken Unknown] spironolactone 25 mg tablet 25 mg PO DAILY BP 01/05/23 [History Last Taken Unknown] tadalafil 20 mg tablet 20 mg PO X1 PRN Erectile Dysfunction 01/05/23 [History Last Taken Unknown] terbinafine HCl 250 mg tablet 250 mg PO DAILY Antifungal 01/05/23 [History Last Taken Unknown] fluticasone fur. 100 mcg-umeclid 62.5 mcg-vilant 25 mcg inhalat.powder (Trelegy Ellipta) 1 ea inhalation DAILY #0 ea 01/11/23 [Rx Last Taken Unknown] apixaban 5 mg (74 tabs) tablets in a dose pack (Eliquis DVT-PE Treat 30D Start) 5 mg PO BID #74 tabs 02/17/23 [Rx Last Taken Unknown] Allergy/AdvReac Type Severity Reaction Status Date / Time No Known Allergies Allergy Verified 02/17/23 12:23 Family History Father Cancer, Onset Age: 52 Pancreatic cancer. Surgical History History of bone marrow transplant History of lumbar fusion History of reverse total replacement of right shoulder joint History of total right knee replacement (TKR) Hx of fusion of cervical spine Social History household members: spouse Smoking Status: Former smoker quit date: 09/18/12 alcohol intake: never substance use type: does not use ROS <PINA Yoo - Last Filed: 02/17/23 13:02> ROS ED Constitutional Constitutional ED: Denies chills or fever(s) Cardiovascular Cardiovascular: Denies chest pain or racing heartbeat Respiratory/Chest Respiratory/Chest: Denies cough, dyspnea, tachypnea or wheezing Gastrointestinal Gastrointestinal: Denies abdominal pain, nausea or vomiting Musculoskeletal Musculoskeletal: Denies arthralgias or myalgias Integumentary Denies abscess, Abrasions or rash Neurologic Neurologic: Denies weakness EXAM <PINA Yoo - Last Filed: 02/17/23 13:02> Physical Exam Const Vital Signs: 02/17/23 12:21 02/17/23 12:38 02/17/23 13:13 Temperature 97.8 F 98.3 F Temperature Source Temporal Pulse Rate 63 81 Respiratory Rate 16 16 Respiratory Effort Normal Non-Labored Respiratory Pattern Normal Blood Pressure 139/91 H 114/75 Blood Pressure Mean 107 Pulse Ox 94 98 Oxygen Delivery Method Room Air Positive well nourished, well developed and no apparent distress General Appearance ED: well developed HEENT Reports normocephalic and head/scalp atraumatic Mouth ED: Yes moist mucous membranes normal Eyes PERRL and EOMs intact bilaterally Neck full ROM and supple Chest Wall inspection of chest normal Resp normal respiratory effort and clear to auscultation bilaterally Cardio regular rate and regular rhythm GI soft to palpation, non-tender, non-distended and no masses Back/Spine normal ROM and normal to inspection Extremity full ROM Extremity Narrative: Bilateral lower extremity edema, DP pulses 2+ and equal bilaterally, good capillary refill, sensation intact Neuro oriented x3, CN's II-XII intact bilaterally, moves all extremities, no focal motor deficits and no sensory deficits noted Sensorium / Orientation: awake and alert Psych mental status grossly normal and thought process normal Skin no rashes or lesions noted and no wounds <Dr. Adam Bridges, - Last Filed: 02/17/23 22:18> Physical Exam Const Vital Signs: 02/17/23 12:21 02/17/23 12:38 02/17/23 13:13 Temperature 97.8 F 98.3 F Temperature Source Temporal Pulse Rate 63 81 Respiratory Rate 16 16 Respiratory Effort Normal Non-Labored Respiratory Pattern Normal Blood Pressure 139/91 H 114/75 Blood Pressure Mean 107 Pulse Ox 94 98 Oxygen Delivery Method Room Air [facility] <PINA Yoo - Last Filed: 02/17/23 13:02> [facility] Narrative Medical decision making narrative: Patient presenting today due to DVTs bilaterally. Bilateral lower extremity venous duplex was performed on 11/10. The impression shows a acute DVT in the popliteal vein at the distal on the right side. Left side shows an acute Deep vein thrombosis in the gastrocnemius vein at the knee crease. He is not on any blood thinners, he has no prior history of any blood clots, he is not complaining of any shortness of breath, chest pain, difficulty breathing, tachypnea, or tachycardia that would indicate a PE. All risks associated with taking a blood thinner have been reviewed with patient. He is on a baby aspirin daily and takes Celebrex as needed, I have encouraged him to follow-up with PCP regarding whether or not he should continue taking these. We will give him first dose of Eliquis here and he will be discharged home in stable condition. He has been given return instructions and is comfortable with plan. He is to follow-up with his PCP. <Dr. Adam Bridges DO - Last Filed: 02/17/23 22:18> [facility] Treatment and Re-Evaluation :: ED attending note: I evaluated the patient in conjunction with the GILDA. I agree with his/her statements and above findings. I have personally performed a face to face assessment of the patient and have reviewed the GILDA Note. I performed a substantive portion of the visit including all aspects of the following. I personally saw the patient performed chart review, physical exam, reviewed labs, imaging (if obtained), and formulated a treatment and management plan. Brief history: 72-year-old male here with confirmed DVT. Denies any chest pain or shortness of breath. Denies history of bleeding diathesis Exam: Nursing triage notes reviewed, Vital signs reviewed Constitutional: please see mdm HENT: MMM Eyes: Pupils equal round and reactive to light, Extraocular muscles intact Neck: No stridor, no JVD, full neck ROM Lungs: Clear to auscultation, No wheezing or rales. No increased work of breathing, no conversational dyspnea, no accessory muscle use, no nasal flaring. No respiratory distress noted Heart: Regular rate and rhythm, No murmurs, No rubs and No gallops, 2+ distal pulses (radial, femoral, posterior tibial) in all extremities Abdomen: Soft, there is no tenderness, rigidity, rebound or guarding, no obvious peritoneal signs, no palpable pulsatile abdominal masses, no auscultated abdominal bruit : No CVAT Extremities: No edema Neuro: No focal neurological deficits, cranial nerves II through XII intact, 5/5 strength in all extremities. Intact sensation to light touch in all extremities, 2+ reflexes bilateral patella dens. Normal gait. No ataxia. Skin: No rash or lesions noted MDM/plan: Chief Complaint: Acute DVT External records reviewed: Ultrasound shows evidence of acute DVT Patient was hemodynamically stable, afebrile, nontoxic-appearing. He had no complaint of chest pain or shortness of breath suggest PE. He was started on Eliquis. There is no bleeding diathesis. Strict return precautions were discussed. Anticoagulation risk factors including head trauma, nose bleeding, internal bleeding were discussed the patient expressed understanding Factors affecting care: GERD, COPD Social determinants of health: Elderly History obtained from others: The patient's significant other Shared decision making: I will have a discussion with the patient and or visitors regarding risk/benefits of further testing or admission. They will be made aware of of the risk/benefits inherent in this decision they will be given the opportunity to voice understanding. Consults: None Discharge Plan Triage Chief Complaint: Edema ED Midlevel Provider: Imelda Blake ED Provider: Adam Bridges Dx/Rx/DC Orders Clinical Impression: DVT (deep venous thrombosis) Instructions: DVT Dc Prescriptions: Charles Hullmytrax DVT-PE Treat 30D Start 5 mg (74 tabs) tablets,dose pack 5 mg PO BID Qty: 74 0RF Rx Instructions: Take 10 mg twice a day for 1 week, then take 5 mg twice a day No Action atorvastatin 40 mg tablet 40 mg PO DAILY aspirin 81 mg tablet,delayed release (DR/EC) 81 mg PO DAILY Label Comments: take 1 tablet by mouth once daily gabapentin 300 mg capsule 300 mg PO BID celecoxib 200 mg Capsule 200 mg PO BID cholecalciferol (vitamin D3) 50 mcg (2,000 unit) tablet 50 mcg PO DAILY Label Comments: take 1 tablet by mouth once daily dapagliflozin propanediol 5 mg Tablet 5 mg PO DAILY Trulicity 1.5 mg/0.5 mL pen injector 0 mg SUBCUT MO Label Comments: inject 0.5 milliliters ( 1 AND 1/2 milligrams ) subcutaneously ONCE A WEEK (DISCARD PEN AFTER USE) cyanocobalamin (vitamin B-12) 1,000 mcg Capsule 1,000 mcg PO DAILY [id number] 100-62.5-25 mcg Blister With Device 1 inh INHALATION DAILY leflunomide 10 mg Tablet 10 mg PO DAILY omeprazole 40 mg capsule,delayed release(DR/EC) 40 mg PO DAILY Label Comments: take 1 capsule by mouth once daily ON AN EMPTY STOMACH spironolactone 25 mg Tablet 25 mg PO DAILY metformin 1,000 mg tablet 1,000 mg PO BID losartan 25 mg tablet 25 mg PO DAILY multivitamin with minerals Tablet 1 tab PO DAILY tadalafil 20 mg tablet 20 mg PO X1 PRN (Reason: Erectile Dysfunction) Dulera 200-5 mcg/actuation Hfa Aerosol Inhaler 2 puff INHALATION BID terbinafine HCl 250 mg Tablet 250 mg PO DAILY calcium carbonate-vitamin D2 600 mg calcium- 200 unit Tablet 200 tab PO DAILY multivitamin Tablet 1 tab PO DAILY Trelegy Ellipta 100-62.5-25 mcg Blister With Device 1 ea inhalation DAILY Qty: 0 0RF Primary Care Provider: Ovidio Guevara Referrals: Ovidio Guevara MD [Primary Care Provider] - Activity Restrictions/Additional Instructions: Follow-up with your PCP Monday if possible. Return for any worsening of symptoms, return for any shortness of breath or chest pain. Disposition Disposition: Home, Self Care Discharge Date/Time: 02/17/23 13:17
[2023-02-17] MEDS: APIXABAN 5 MG TABLET 10 MG PO (13:08)
[2023-02-17 13:13] VITALS: BP 114/75; PULSE 81; RESP 16; TEMP 36.8; O2SAT 98
== END 2023-02-17 13:17 | disposition home or self-care (01) ==
LOC: ED 12:46
PROVIDERS: Emergency Provider Emergency Medicine; PCP Family Medicine; Visit Provider Emergency Medicine
DX: I82.462 Acute embolism and thrombosis of left calf muscular vein (principal); J44.9 Chronic obstructive pulmonary disease, unspecified; I82.431 Acute embolism and thrombosis of right popliteal vein; E11.9 Type 2 diabetes mellitus without complications; K21.9 Gastro-esophageal reflux disease without esophagitis; Z87.891 Personal history of nicotine dependence; I10 Essential (primary) hypertension; E78.5 Hyperlipidemia, unspecified; Z79.82 Long term (current) use of aspirin
CPT/HCPCS: 99283

== ENCOUNTER 2023-03-07 08:30 | Outpatient (RCR) | payer MEDICARE, SELFPAY ==
--- NOTE | 2023-01-19 11:28 | HP.PTEVAL ---
Patient's Visit Information RONNIE YARBROUGH is a 72 year old M referred to Physical Therapy by Dr. Shabbir Davila MD with a diagnosis of Microdiscectomy of Spine. Date of Evaluation: 01/19/23 Physical Therapist: Deysi Bass PT, Cert MDT - Visit Plan Frequency: 2-3x /Week Duration: 4-6 Weeks Plan: GAIT AND BALANCE TRAINING. POSTURE CORRECTION/STRENGTHENING, INSTRUCTION IN APPROPRIATE BODY MECHANICS AND ACTIVITY MODIFICATIONS. DLS STARTING WITH A NEUTRAL SPINE PROGRESSING ROM TOLERATED. ALESSANDRA LE ROM, STRETCHING AND STRENGTHENING. HEP INSTRUCTION. - Subjective This patient presents to out-patient physical therapy today s/p posterior T11-T12 microdecompression surgery 12/28/[address] Jonny Lua followed by admit to [facility] TCU with debility for rehabilitation. D/C home with 01/14/23. Work/Leisure: RETIRED. [employer]. Present symptoms: PATIENT DENIES PAIN. DIFFICULTY WALKING. ALESSANDRA LE WEAKNESS AND ALESSANDRA LE NUMBNESS. Is it getting better, worse or staying the same: GETTING BETTER. Commenced as a result of: JUN 2022 BLACKED OUT IN [place] AND FELL AND CRACKED A VERTEBRA DUE TO LOW BLOOD SUGAR. DID OK UNTIL END OF AUG [address] GRIFFIN AND TRIED INJECTIONS. INJECTIONS/PROCEEDURE END OF OCT 2022 REALLY SEEMED TO HELP. GRADUALLY STARTED GETTING WORSE AND STARTED NEEDED WALKER INSTEAD OF CANE. EVEN GOT TO THE POINT HE NEEDED W/C SO WAS REFERRED TO DR. JONNY LUA. SURGERY ONE DAY AFTER CONSULT. PATIENT REPORTS SURGERY TOOK CARE OF THE PAIN AND HE IS SLOWLY GETTING STRONGER. UNABLE TO WALK WITHOUT WALKER YET THOUGH. SILVER SNEAKER MEMBER AND STARTED COMING AGAIN MON AND MONDAY THIS WEEK. ABLE TO DO NUSTEP X 17 MINUTES. ALSO DID SOME LEG EXTENSION AND FLEXION. PATIENT DENIES PAIN WITH THE EX'S BUT GREAT DIFFICULTY GETTING ON/OFF MACHINES. Previous history/Previous treatment: PRIOR TO JUN 2022 PATIENT REPORTS UNLIMITED ACTIVITY LEVEL. Bowel or Bladder Dysfunction: NO. Accidents: NO. Unexplained weight loss: NO. Imaging: NONE SINCE SURGERY THAT PATIENT IS AWARE OF. OTHER: PATIENT DENIES ANY FALLS SINCE THE ONE ABOVE IN JUN 2022. LIVES IN ONE STORY HOME WITH . 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 NOT DRIVING. WENT TO HOME AND GARDEN SHOW OVER WEEKEND AND DID A LOT OF WALKING. PHYSICIAN RESTRICTIONS: NONE PER PATIENT REPORT. PMH: See Below. 2 lumbar surgeries including fusion with last sx being 2019. Cervical Fusion 2005. R TSR and R TKR. R Carpal Tunnel surgery. - Objective Sitting/Standing Posture: POOR. INCREASED TRUNK FLEXION AND SCOLIOTIC POSTURE. Active Correction of posture: DIFFICULT AND ONLY PARTIALLY ABLE TO CORRECT. Other Observations: INDEP GAIT INTO PT WITH ROLLATOR X > 200 FEET. VERY DEPENDENT ON ROLLATOR. DIFFICULTY advancing ALESSANDRA LE'S LEFT >RIGHT. INDEP TRANSFERS SIT TO STAND AND AGAIN VERY ALESSANDRA UE DEPEDENT. Sensory deficit: ALESSANDRA LE LIGHT TOUCH SENSATION GROSSLY INTACT AND SYMMETRICAL BUT PATIENT REPORTS HAVING ALESSANDRA LE NUMBNESS AND DIABETIC NEUROPATHY. ROM deficit: TIGHT ALESSANDRA HIP FLEXORS, HS'S AND GASTROC SOLEUS COMPLEX'S. Motor deficit: HIPS 3-/5, KNEES: R 3+/5, L 3-/5, ANKLES 4-/5. Dural Signs: NEGATIVE ALESSANDRA LE'S. Lumbar mvmt loss: flex - MOD. ext - NOAH. R SG - NOAH. L SG - NOAH. PATIENT DENIES PAIN WITH LUMBAR ROM TESTING ALL PLANES. Core strength: POOR. Palpation: INCISION LOOKS GOOD WITHOUT ANY OPEN AREAS OR SIGNS OF INFECTION. TREATMENT: NEUROMUSCULAR REEDUCATION - RETRAINING OF MVMT AND POSTURE FOR SITTING, LYING AND STANDING ACTIVITIES. - Balance/Special Test Scores Oswestry Low Back Score: 8 TUG Test Time Seconds: 23.99 30 Second Chair Rise Test Seconds: 5 - Goals Goal 1:: PATIENT WILL COMPLETE 8 STANDS IN 30 SECS TO DEMONSTRATE IMPROVED FUNCTIONAL STRENGTH Goal Time Frame: 8-12 Weeks Goal 2:: PATIENT WILL COMPLETE TUG IN < 20 SECS TO DEMONSTRATE IMPROVED GAIT STABILITY Goal Time Frame: 8-12 Weeks Goal 3:: PATIENT WILL BE INDEP WITH A HEP FOR CONTINUED IMPROVEMENT ONCE FORMAL PHYSICAL THERAPY CONCLUDES. Goal Time Frame: 8-12 Weeks Goal 4:: PATIENT WILL AMBULATE 10 minutes WITH WW WITH SUPERVISION X 1 TO IMPROVE ACTIVITY TOLERANCE - Anticipated Interventions Patient/Client Instruction: Educate patient on: Condition, Plan of Care, Risk Factors For the Purpose of:: To improve self management Therapeutic Exercise to Include: Strength training, Endurance training, Balance training, Body mechanics, Postural training, Flexibilty training, Gait and locomotor training, Neuromotor development, Dynamic Lumbar Stabilization For the Purpose of:: To decrease pain, To increase ROM, To improve muscle performance and motor function, To increase tolerance to activity/condition/position, To improve ability of physical actions for home/community/work/leisure, To improve gait and locomotor functions, To improve endurance, To improve safety with gait Thank you for the opportunity to evaluate your patient. For Medicare and Medicare HMO plans, please review the plan of care and approve it. It will need to be FAXED BACK to us at [phone] for Medicare purposes. For Medicare only, by signing this I certify the plan of care. Please let me know if there are questions or concerns regarding this plan of care. Physician Signature: Date:
--- NOTE | 2023-02-14 09:29 | HP.PTREVAL ---
Dr. Ovidio Guevara MD, It has been my pleasure to treat RONNIE YARBROUGH over the last 10 visits for Microdiscectomy of Spine. Please see the progress note below for an update on the physical therapy plan of care! Subjective: Pt. reports no pain pre treatment today. Pt. repots being 50-60% better overall. Objective/Function: 30 sit to stand rep sit to stand test: 10. TUG: with rollator 9.1 sec. 2nd trial with single point cane 11.6 sec. MMT: LLE: ankle: DF 34.4#, PF 44.9#; knee: ext 46#, flexion 32.8#, hip flexion 15.7#. RLE:PF 47.7#, DF 39.9#; knee: ext: 56.6, flexion 43.2#, hip: flexion 21.1#. Pt. was able to walk for 6:48sec with distance of 821feet with SPC. GAIT without AD: CGA with LE motor control deficits. STAIRS: 2 HR with increased fatigue, more difficulty with descending. BALANCE: SLS- 6 sec on R, 4 sec on L. Sharpened stance: 11sec. Pt. has goals of walking without AD for unlimited distances. 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 With his goals in mind I would recommend that we work on higher level balance, BLE strengthening, gait progression. Plan Plan: Cont. with POC with focus on balance, gait with SPC progressing to LRD as able. Add in BLE strengthening, core stability, stair negotiation Balance/Gait/Functional tests - Balance/Special Test Scores CATSIB Score (Max score 120 seconds): 85 Oswestry Low Back Score: 6 TUG Test Time Seconds: 9.1 Tug Test: <10 sec.=free mobile 30 Second Chair Rise Test Seconds: 10 Goals Goal 1:: PATIENT WILL COMPLETE 8 STANDS IN 30 SECS TO DEMONSTRATE IMPROVED FUNCTIONAL STRENGTH (pt. completed 10 reps this date) Goal Time Frame: 8-12 Weeks Goal Progress: Goal Met Goal 2:: PATIENT WILL COMPLETE TUG IN < 20 SECS TO DEMONSTRATE IMPROVED GAIT STABILITY (NEW GOAL: 02/14/23- Pt. to complete TUG without AD in less than 8 seconds). Goal Time Frame: 8-12 Weeks Goal Progress: Progressing Goal 3:: PATIENT WILL BE INDEP WITH A HEP FOR CONTINUED IMPROVEMENT ONCE FORMAL PHYSICAL THERAPY CONCLUDES. Goal Time Frame: 8-12 Weeks Goal Progress: Progressing Goal 4:: PATIENT WILL AMBULATE 10 minutes WITH WW WITH SUPERVISION X 1 TO IMPROVE ACTIVITY TOLERANCE Goal Progress: Progressing Goal 5:: LTG: PT. to have equal BLE strength, currently L is ~20% weaker than R. allowing for increased stability with gait. Goal Time Frame: 4-6 Weeks Goal Progress: Progressing Goal 6:: LTG: Pt. to negotiate stairs with 1 HR with reciprocal pattern without presence of LE weakness. Goal Time Frame: 4-6 Weeks Goal Progress: Progressing Anticipated Interventions Patient/Client Instruction: Educate patient on: Condition, Plan of Care, Risk Factors For the Purpose of:: To improve self management Therapeutic Exercise to Include: Strength training, Endurance training, Balance training, Body mechanics, Postural training, Flexibilty training, Gait and locomotor training, Neuromotor development, Dynamic Lumbar Stabilization For the Purpose of:: To decrease pain, To increase ROM, To improve muscle performance and motor function, To increase tolerance to activity/condition/position, To improve ability of physical actions for home/community/work/leisure, To improve gait and locomotor functions, To improve endurance, To improve safety with gait Please do not hesitate to contact me at [phone] by phone or if you have questions or concerns regarding this new plan of care! Sincerely, Chuck Veliz DPT
--- NOTE | 2023-05-25 12:34 | HP.PT.NRP ---
Patient Information Patient Information: RONNIE YARBROUGH was seen in my office for initial evaluation on 01/19/23. The following Plan of Care was established for this patient: POC Established Initial Frequency: 2-3x /Week Initial Duration: 4-6 Weeks Anticipated Interventions Patient/Client Instruction: Educate patient on: Condition, Plan of Care and Risk Factors For the Purpose of:: To improve self management Therapeutic Exercise to Include: Strength training, Endurance training, Balance training, Body mechanics, Postural training, Flexibilty training, Gait and locomotor training, Neuromotor development and Dynamic Lumbar Stabilization For the Purpose of:: To decrease pain, To increase ROM, To improve muscle performance and motor function, To increase tolerance to activity/condition/position, To improve ability of physical actions for home/community/work/leisure, To improve gait and locomotor functions, To improve endurance and To improve safety with gait Last Seen Last Seen: This patient was last seen in our office 03/07/23. Pertinent comments regarding their Physical therapy will appear below: 03/07/23: THIS PATIENT WAS FOUND WITH AND STRETCHING ON SLANT BOARD. WE STARTED WALKING TO [facility] AND PATIENT HAD NEAR FALL WHEN L KNEE BUCKLED AND HE CAUGHT HIMSELF ON THE PARALLEL BARS. HE CAME TO PT WITH CANE INSTEAD OF WALKER FOR FIRST TIME TODAY. PATIENT DID NOT WANT TO STOP WALKING BUT THIS PT INSISTED ON STOPPING AND ALLOWING GAIT BELT TO BE USED. WE GOT HIM ONE OF OUR WALKERS FOR SAFETY. PATIENT REPORTS HIS KNEE HAS BEEN BUCKLING MORE AND HURTING MORE. REPORTS BEING TOLD 20 YEARS AGO IT NEEDS REPLACED. HE REPORTS THE BACK SURGEON RELEASED HIM LAST VISIT. THIS PT RECOMMENDED KNEE ORTHO CONSULT AND USE OF WALKER BEFORE CONTINUING PT. PATIENT AGREEABLE ALTHOUGH HE WISHES HIS KNEE WASN'T BEING BIG OF A PROBLEM IT IS. PRESENT THROUGHOUT. ADVISED PATIENT ON RISK OF FALLING EVEN WITH WALKER DUE TO L KNEE INSTABILITY. PATIENT COMMUNICATED UNDERSTANDING. 05/25/23: This patient has not returned to Physical Therapy at this time and is appropriate to return to MD for further follow-up as needed. At this point I will be discontinuing this patient from physical therapy. I would be happy to see this patient again in the future if found appropriate by the physician. Thank you! Deysi Bass, PT, Cert MDT Balance/Gait/Functional tests Balance/Special Test Scores CATSIB Score (Max score 120 seconds): 85 Oswestry Low Back Score: 6 TUG Test Time Seconds: 9.1 Tug Test: <10 sec.=free mobile 30 Second Chair Rise Test Seconds: 10
== END 2023-03-07 19:00 | disposition home or self-care (01) ==
LOC: PT 08:30
PROVIDERS: PCP Family Medicine; Referring Provider Family Medicine Geriatric Medicine; Visit Provider Family Medicine
DX: Z47.89 Encounter for other orthopedic aftercare (principal); M62.81 Muscle weakness (generalized)
CPT/HCPCS: 71046; 80048; 83735; 83880; 84484; 85025; 93005; 97110; 97112; 97162; 97164; 99284; A4216

== ENCOUNTER 2023-03-22 16:36 | Emergency (ER) | payer MEDICARE, SELFPAY ==
[2023-03-22 16:37] VITALS: BP 154/83; PULSE 86; RESP 18; TEMP 35.9; O2SAT 97; BMI 33.0
--- NOTE | 2023-03-22 16:41 | EKG12_ITS ---
Test Reason : ABN TEST Blood Pressure : / mmHG Vent. Rate : 091 BPM Atrial Rate : 091 BPM P-R Int : 138 ms QRS Dur : 094 ms QT Int : 368 ms P-R-T Axes : 008 043 044 degrees QTc Int : 452 ms Sinus rhythm with Premature atrial complexes Nonspecific ST abnormality Abnormal ECG Confirmed by ANIBAL JOHNSON, MILLIE ([id number]), editorial cartoonist SHELDON FORDE ([id number]) on 03/27/2023 12:47:55 P M Referred By: KATHY/LUANN Confirmed By:CECY BARNETT MD
--- NOTE | 2023-03-22 16:52 | EX.ED.DYSGE1 ---
HPI History of Present Illness Chief Complaint: General Illness [facility] Medical History COPD (chronic obstructive pulmonary disease) Debility Diabetes mellitus GERD (gastroesophageal reflux disease) History of multiple myeloma Hyperlipidemia Hypertension Osteoarthritis Rheumatoid arthritis Thoracic spinal stenosis Home Medications aspirin 81 mg tablet,delayed release 81 mg PO DAILY Heart 01/05/23 [History Last Taken Unknown] atorvastatin 40 mg tablet 40 mg PO DAILY cholesterol 01/05/23 [History Last Taken Unknown] calcium carb-ergocalciferol (vit D2) 600 mg calcium-200 unit tablet 200 tab PO DAILY Supplment 01/05/23 [History Last Taken Unknown] celecoxib 200 mg capsule 200 mg PO BID Pain 01/05/23 [History Last Taken Unknown] cholecalciferol (vitamin D3) 50 mcg (2,000 unit) tablet 50 mcg PO DAILY Supplement 01/05/23 [History Last Taken Unknown] cyanocobalamin (vitamin B-12) 1,000 mcg capsule 1,000 mcg PO DAILY Supplement 01/05/23 [History Last Taken Unknown] dapagliflozin propanediol 5 mg tablet 5 mg PO DAILY Heart 01/05/23 [History Last Taken Unknown] dulaglutide 1.5 mg/0.5 mL subcutaneous pen injector (Trulicity) 0 mg subcut MO DM 01/05/23 [History Last Taken Unknown] fluticasone fur. 100 mcg-umeclid 62.5 mcg-vilant 25 mcg inhalat.powder 1 inh inhalation DAILY Allergies 01/05/23 [History Last Taken Unknown] gabapentin 300 mg capsule 300 mg PO BID Lumbar Canal Stenosis 01/05/23 [History Last Taken Unknown] leflunomide 10 mg tablet 10 mg PO DAILY Arthritis 01/05/23 [History Last Taken Unknown] losartan 25 mg tablet 25 mg PO DAILY BP 01/05/23 [History Last Taken Unknown] metformin 1,000 mg tablet 1,000 mg PO BID DM 01/05/23 [History Last Taken Unknown] mometasone-formoterol HFA 200 mcg-5 mcg/actuation aerosol inhaler (Dulera) 2 puff inhalation BID COPD 01/05/23 [History Last Taken Unknown] multivitamin 1 tab PO DAILY Supplement 01/05/23 [History Last Taken Unknown] multivitamin with minerals 1 tab PO DAILY Supplement 01/05/23 [History Last Taken Unknown] omeprazole 40 mg capsule,delayed release 40 mg PO DAILY GERD 01/05/23 [History Last Taken Unknown] spironolactone 25 mg tablet 25 mg PO DAILY BP 01/05/23 [History Last Taken Unknown] tadalafil 20 mg tablet 20 mg PO X1 PRN Erectile Dysfunction 01/05/23 [History Last Taken Unknown] terbinafine HCl 250 mg tablet 250 mg PO DAILY Antifungal 01/05/23 [History Last Taken Unknown] fluticasone fur. 100 mcg-umeclid 62.5 mcg-vilant 25 mcg inhalat.powder (Trelegy Ellipta) 1 ea inhalation DAILY #0 ea 01/11/23 [Rx Last Taken Unknown] apixaban 5 mg (74 tabs) tablets in a dose pack (EliISVS DVT-PE Treat 30D Start) 5 mg PO BID #74 tabs 02/17/23 [Rx Last Taken Unknown] Allergy/AdvReac Type Severity Reaction Status Date / Time No Known Allergies Allergy Verified 03/22/23 16:39 Family History Father Cancer, Onset Age: 52 Pancreatic cancer. Surgical History History of bone marrow transplant History of lumbar fusion History of reverse total replacement of right shoulder joint History of total right knee replacement (TKR) Hx of fusion of cervical spine Social History household members: spouse Smoking Status: Former smoker quit date: 09/18/12 alcohol intake: never substance use type: does not use EXAM Physical Exam Const Vital Signs: 03/22/23 16:37 03/22/23 16:54 Temperature 96.7 F L Temperature Source Temporal Pulse Rate 86 Respiratory Rate 18 Respiratory Effort Normal Non-Labored Respiratory Pattern Normal Blood Pressure 154/83 H Blood Pressure Mean 106 Pulse Ox 97 Oxygen Delivery Method Room Air MDM MDM MDM Narrative Medical decision making narrative: HISTORY OF PRESENT ILLNESS: 72 M here with concern for abnormal EKG. the patient denies any symptoms at this time. REVIEW OF SYSTEMS: Pertinent positives: Abnormal EKG Pertinent negatives: Chest pain, lightheadedness, fatigue, shortness of breath, palpitations, PHYSICAL EXAM: Nursing triage notes reviewed, Vital signs reviewed Constitutional: please see mdm HENT: MMM Eyes: Pupils equal round and reactive to light, Extraocular muscles intact Neck: No stridor, no JVD, full neck ROM Lungs: Clear to auscultation, No wheezing or rales. No increased work of breathing, no conversational dyspnea, no accessory muscle use, no nasal flaring. No respiratory distress noted Heart: Regular rate and rhythm, No murmurs, No rubs and No gallops, 2+ distal pulses (radial, femoral, posterior tibial) in all extremities Abdomen: Soft, there is no tenderness, rigidity, rebound or guarding, no obvious peritoneal signs, no palpable pulsatile abdominal masses, no auscultated abdominal bruit : No CVAT Extremities: No edema Neuro: No focal neurological deficits, cranial nerves II through XII intact, 5/5 strength in all extremities. Intact sensation to light touch in all extremities, 2+ reflexes bilateral patella tendons. Normal gait. No ataxia. Skin: No rash or lesions noted MEDICAL DECISION MAKING: Chief Complaint: None, abnormal EKG External records reviewed: Reviewed EKG from 02/10/2023 shows normal sinus rhythm ALL IMAGES (IF OBTAINED) HAVE BEEN PERSONALLY REVIEWED AND INTERPRETED BY MYSELF. EKG shows normal sinus rhythm, normal axis, normal intervals, no STEMI. Similar to EKG on 02/10/2023 [facility] Narrative: Patient was hemodynamically stable, afebrile, nontoxic-appearing. Cardio pulmonary exam was unremarkable. He had symmetric pulses and a regular rate and rhythm he had no murmurs gallops or rubs. EKG obtained here showed no evidence of any ischemic changes, arrhythmia, axis deviation, heart block, ARVD, WW or Brugada syndrome. No clear etiology to explain the patient's prior abnormal EKG. No indication for further testing or ED care or admission at this time. Discussed my impression with the patient and . Patient and expressed understanding and agreed they do not want to pursue any further work-up or observation at this time. They are discharged stable condition with strict return precautions and follow-up instructions The patient and/or family, caregivers express understanding. The patient and/or family, caregivers agrees with the plan. Total critical care time today provided was at least 0 minutes. This excludes separately billable procedures. Critical care time (if documented) is secondary to the patient having high probability of clinically significant/life threatening deterioration in the patient's condition which required my urgent intervention. Shared decision making: I will have a discussion with the patient and or visitors regarding risk/benefits of further testing or admission. They will be made aware of of the risk/benefits inherent in this decision they will be given the opportunity to voice understanding. Discharge Plan Triage Chief Complaint: General Illness ED Provider: Adam Bridges Dx/Rx/DC Orders Clinical Impression: Encounter for electrocardiogram Prescriptions: No Action atorvastatin 40 mg tablet 40 mg PO DAILY aspirin 81 mg tablet,delayed release (DR/EC) 81 mg PO DAILY Patient Comments: take 1 tablet by mouth once daily gabapentin 300 mg capsule 300 mg PO BID celecoxib 200 mg Capsule 200 mg PO BID cholecalciferol (vitamin D3) 50 mcg (2,000 unit) tablet 50 mcg PO DAILY Patient Comments: take 1 tablet by mouth once daily dapagliflozin propanediol 5 mg Tablet 5 mg PO DAILY Trulicity 1.5 mg/0.5 mL pen injector 0 mg SUBCUT MO Patient Comments: inject 0.5 milliliters ( 1 AND 1/2 milligrams ) subcutaneously ONCE A WEEK (DISCARD PEN AFTER USE) cyanocobalamin (vitamin B-12) 1,000 mcg Capsule 1,000 mcg PO DAILY [id number] 100-62.5-25 mcg Blister With Device 1 inh INHALATION DAILY leflunomide 10 mg Tablet 10 mg PO DAILY omeprazole 40 mg capsule,delayed release(DR/EC) 40 mg PO DAILY Patient Comments: take 1 capsule by mouth once daily ON AN EMPTY STOMACH spironolactone 25 mg Tablet 25 mg PO DAILY metformin 1,000 mg tablet 1,000 mg PO BID losartan 25 mg tablet 25 mg PO DAILY multivitamin with minerals Tablet 1 tab PO DAILY tadalafil 20 mg tablet 20 mg PO X1 PRN (Reason: Erectile Dysfunction) Dulera 200-5 mcg/actuation Hfa Aerosol Inhaler 2 puff INHALATION BID terbinafine HCl 250 mg Tablet 250 mg PO DAILY calcium carbonate-vitamin D2 600 mg calcium- 200 unit Tablet 200 tab PO DAILY multivitamin Tablet 1 tab PO DAILY Trelegy Ellipta 100-62.5-25 mcg Blister With Device 1 ea inhalation DAILY Qty: 0 0RF Eliquis DVT-PE Treat 30D Start 5 mg (74 tabs) tablets,dose pack 5 mg PO BID Qty: 74 0RF Rx Instructions: Take 10 mg twice a day for 1 week, then take 5 mg twice a day Primary Care Provider: Ovidio Guevara Referrals: Ovidio Guevara MD [Primary Care Provider] - Activity Restrictions/Additional Instructions: Thank you for trusting us with your care today! Please take Tylenol (2 pills, 650 mg), ibuprofen (2 pills, 400 mg) every 6 hours as needed for pain and fever control. Please return to the emergency department if your symptoms change or worsen. Specifically you develop lightheadedness, diffuse weakness, excessive fatigue, shortness of breath, palpitations, chest pain, nausea, if you lose consciousness, if you develop pallor. If you are interested in monitoring your heart rhythm at home there are several commercial devices available to you including [employer] mobile. Please refer to government affairs researcher such as [employer] for more information. Please follow with your primary care physician for further outpatient evaluation and management. Disposition Disposition: Home, Self Care Discharge Date/Time: 03/22/23 17:11
== END 2023-03-22 17:11 | disposition home or self-care (01) ==
LOC: ED 17:08
PROVIDERS: Emergency Provider Emergency Medicine; PCP Family Medicine; Visit Provider Emergency Medicine
DX: Z13.6 Encounter for screening for cardiovascular disorders (principal); J44.9 Chronic obstructive pulmonary disease, unspecified; E11.9 Type 2 diabetes mellitus without complications; I10 Essential (primary) hypertension; Z87.891 Personal history of nicotine dependence; E78.5 Hyperlipidemia, unspecified; R94.31 Abnormal electrocardiogram [ECG] [EKG]
CPT/HCPCS: 93005; 99282

== ENCOUNTER → 2023-05-02 | Outpatient (CLI) | payer MEDICARE, SELFPAY ==
[2023-05-02 12:12] LABS: Thyroid Stim Hormone (TSH) 3.03 uIU/mL (0.358-3.74)
== END | disposition home or self-care (01) ==
LOC: LAB 10:34
PROVIDERS: PCP Family Medicine; Referring Provider Internal Medicine Cardiovascular Disease; Visit Provider Internal Medicine Cardiovascular Disease
DX: R94.31 Abnormal electrocardiogram [ECG] [EKG] (principal); I48.0 Paroxysmal atrial fibrillation; E11.9 Type 2 diabetes mellitus without complications; I10 Essential (primary) hypertension
CPT/HCPCS: 36415; 84443

== ENCOUNTER → 2023-05-29 | Outpatient (CLI) | payer MEDICARE, SELFPAY ==
--- NOTE | 2023-05-29 12:48 | ECHOD_ITS ---
Reason For Study: PAROXYSMAL AFIB Procedure This was a 2D Doppler, Color Flow transthoracic echocardiogram. The study was technically difficult. Exam performed in department. Left Ventricle Normal LV size. Mild concentric left ventricular hypertrophy. The left ventricular ejection fraction is 70 %. Normal diastology for age. Right Ventricle Normal right ventricle. Atria The left atrium is mildly enlarged. Normal right atrium. Mitral Valve The mitral valve is structurally normal. No prolapse or stenosis seen. Tricuspid Valve Normal tricuspid valve. Aortic Valve Aortic sclerosis, no stenosis. Pulmonic Valve The pulmonic valve is not well visualized. Great Vessels Mildly dilated aortic root. Pericardium/Pleural No pericardial effusion. MMode/2D Measurements & Calculations LVIDd: 4.3 cm IVSd: 1.2 cm Ao root diam: 3.7 cm LVIDs: 2.8 cm LVPWd: 1.3 cm RVDd: 4.0 cm FS: 34.5 % LAV(MOD-bp): 38.8 ml EDV(MOD-sp4): 60.7 ml EDV(MOD-sp2): 39.5 ml LAV(MOD-bp) Indexed: 17.8 ml/m2 ESV(MOD-sp4): 20.4 ml ESV(MOD-sp2): 18.0 ml LAV(MOD-sp2): 41.8 ml EF(MOD-sp4): 66.4 % EF(MOD-sp2): 54.4 % LAV(MOD-sp4): 33.6 ml SV(MOD-sp4): 40.3 ml SV(MOD-sp2): 21.5 ml LA A4 area: 14.6 cm2 LA dimension(2D): 3.4 cm RA A4 area: 15.3 cm2 Time Measurements MV dec time: 0.29 sec Doppler Measurements & Calculations MV E max bahman: 67.6 cm/sec Lat Peak E' Bahman: 10.3 cm/sec Med Peak E' Bahman: 6.4 cm/sec MV A max bahman: 77.7 cm/sec E/E' lat: 6.6 E/E' med: 10.6 MV E/A: 0.87 MV V2 max: 75.5 cm/sec MV P1/2t max bahman: 74.5 cm/sec Ao V2 max: 121.6 cm/sec MV max P.3 mmHg MV P1/2t: 81.9 msec Ao max P.9 mmHg MV V2 mean: 41.5 cm/sec MV dec slope: 266.4 cm/sec2 Ao V2 mean: 87.3 cm/sec MV mean P.82 mmHg Ao mean P.5 mmHg MV V2 VTI: 18.2 cm MVA(P1/2t): 2.7 cm2 Ao V2 VTI: 22.6 cm AV (velocity ratio): 1.1 LV V1 max: 113.6 cm/sec PA V2 max: 118.0 cm/sec TR max bahman: 266.4 cm/sec LV V1 max P.2 mmHg TR max P.4 mmHg LV V1 mean P.8 mmHg LV V1 mean: 78.4 cm/sec LV V1 VTI: 25.0 cm ECHO/Echo Complete Interpretation Summary Mild concentric left ventricular hypertrophy. The left ventricular ejection fraction is 70 %. The left atrium is mildly enlarged. Aortic sclerosis, no stenosis. Mildly dilated aortic root. The study was technically difficult. Ordering Physician: Patsy Gamble Referring Physician: Ovidio Guevara Performed By: Tiffany Lucas, WINSOME, RVT
== END | disposition home or self-care (01) ==
PROVIDERS: PCP Family Medicine; Referring Provider Internal Medicine Cardiovascular Disease; Visit Provider Internal Medicine Cardiovascular Disease
DX: I48.0 Paroxysmal atrial fibrillation (principal); R94.31 Abnormal electrocardiogram [ECG] [EKG]; I10 Essential (primary) hypertension
CPT/HCPCS: 93306

== ENCOUNTER 2023-10-11 07:00 | Outpatient (RCR) | payer MEDICARE, SELFPAY ==
--- NOTE | 2023-08-31 08:57 | HP.PTEVAL_ITS ---
Patient's Visit Information Visit Information Visit Information: RONNIE YARBROUGH is a 73 year old M referred to Physical Therapy by LEO ARCE with a diagnosis of L TKA 08/22/23. Date of Evaluation: 08/31/23 Physical Therapist: Daniel Gupta, DPT, OCS, CSCS Visit Plan Frequency: 3x /Week Duration: 4-6 Weeks Plan: 3x/week for 4-6 weeks for 1. patellar mobs and quad STM 2. AROM L knee and PROM progression. 3. strength B LE and gait training to cane adn possibly without AD, balance ex. Subjective Subjective: L TKA 08/21/23. R tka in 2009. This one is slow. Hard to move and pain is mostly gone. Swelling is a big issue. been sitting in chair and stretching. HEP:SLR, bending knee, QS, AP. 2-3x/day. Home health did not have room. Pain is 5/10 intermittently and worse with moving the wrong way and lingers. Uses ice machine. Was hard to walk prior. Lives with adn dtr and son in law in basement. One story with a steo or two to get in and no rails, uses walker. Basic ADLs: Dresses except shoes and socks needs help, showwer with help to back and walk in shower with shower seat, bathroom I. Not employed. Hobbies: cut [employer], wood shop. 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 Uses wh walker now Pain L knee: Pain Intensity (Out of 10): 1 Pain Intensity Range: 0 and 5 Objective Objective: L 20.5 inch at joint line 25 6 inch sp -3 to 80 AROM L knee 10 quad and 27 HS # strength. TUG 30 sec R knee AROM 0-108 strength R knee 4- and pain hip flexion and SLR SLR able L betteer than R due to R pain, 20 ext lag on L. - homans Walks with wh walker 30 feet with antalgia slight on L mod I. Relies on walker, able to stand without AD and ec but wobbly. Walks one painful short step without AD today but min A needed Balance/Special Test Scores WOMAC Total Score: 60 WOMAC Percentatge: 37.5000 Goals Goal 1:: ST: L knee AROM 0-110 Goal Time Frame: 2-4 Weeks Goal 2:: walk with cane into and out of PT without antalgia safely Goal Time Frame: 4-6 Weeks Goal 3:: LT: I appropr gym ex program to continue progress Goal Time Frame: 4-6 Weeks Goal 4:: Pain 0-1/10 at all times and sleeping without a problem Goal Time Frame: 4-6 Weeks Goal 5:: Plan to get back to woodop Goal Time Frame: 4-6 Weeks Rehabilitation Potential Physical Therapy Diagnosis: stiffness, weakness and pain limiting function. Rehabilitation Potential: Good Anticipated Interventions Patient/Client Instruction: Educate patient on: Condition and Risk Factors For the Purpose of:: To decrease pain, To increase ROM, To improve nutrient delivery to tissue, To improve muscle performance and motor function and To increase tolerance to activity/condition/position Therapeutic Exercise to Include: Strength training, Balance training, Postural training, Flexibilty training, Gait and locomotor training, Passive ROM and Active ROM For the Purpose of:: To decrease pain, To increase ROM, To improve nutrient delivery to tissue, To improve muscle performance and motor function, To increase tolerance to activity/condition/position, To improve ability of physical actions for home/community/work/leisure and To improve gait and locomotor functions Manual Therapy Techniques to Include: Mobilization and Soft tissue mobilization For the Purpose of:: To decrease pain, To increase ROM, To improve nutrient delivery to tissue, To increase tolerance to activity/condition/position, To improve ability of physical actions for home/community/work/leisure and To improve gait and locomotor functions Cryotherapy (ice pack, ice massage): Yes For the Purpose of:: To decrease pain and To decrease swelling/inflammation Text: Thank you for the opportunity to evaluate your patient. For Medicare and Medicare HMO plans, please review the plan of care and approve it. It will need to be FAXED BACK to us at [phone] for Medicare purposes. For Medicare only, by signing this I certify the plan of care. Please let me know if there are questions or concerns regarding this plan of care. Physician Signature: ____Date:
--- NOTE | 2023-10-13 07:20 | HP.PTDCSUM_ITS ---
Discharge Summary D/C summary: It has been my pleasure to treat RONNIE YARBROUGH referred by KENDY BURROUGHS, TARA-C, with the diagnosis of L TKA 08/22/23 for a total of 18 visit(s). Discharge Date: 10/13/23 Please see the following information for a summary of their discharge status. Subjective Subjective: Gym going well. No f/u with doctor. Pain level 2/10 transient with steps. Sleeping is going well. Will continue gym exercises I. activities at home are normal outside of cutting [employer]. Pain L knee: Pain Intensity (Out of 10): 0 Overall Improvement % Improvement: 85 Objective Objective/Function: 40# L quad and 39# L HS 16.5 inches girth at joint and 20 6 inch sp. 0-108 AROM L knee. 15 TUG Walking well with and without cane safe and I. Stiff L knee at first but loosens up. steps are reciprocal with one rail. Weakness evident on L but funcitonal. Goals Goal 1:: ST: L knee AROM 0-110 Goal Progress: Progressing Goal 2:: walk with cane into and out of PT without antalgia safely Goal Progress: Goal Met Goal 3:: LT: I appropr gym ex program to continue progress Goal Progress: Goal Met Goal 4:: Pain 0-1/10 at all times and sleeping without a problem Goal Progress: Goal Met Goal 5:: Plan to get back to [facility] Goal Progress: Goal Met Plan Plan: d/c to gyma dn home ex. D/C Information d/c sentence: If there are questions or concerns regarding this patient's physical therapy, please feel free to call me at [phone]. Thank you for the referral of this patient. Sincerely, Daniel Gupta, DPT, OCS, CSCS Balance/Gait/Functional tests Balance/Special Test Scores WOMAC Total Score: 20 WOMAC Percentage: 79.1700 Improvement % Improvement: 85
== END 2023-10-11 19:00 | disposition home or self-care (01) ==
LOC: PT 07:00
PROVIDERS: PCP Family Medicine; Referring Provider Nurse Practitioner Family; Visit Provider Nurse Practitioner Family
DX: M17.12 Unilateral primary osteoarthritis, left knee (principal)
CPT/HCPCS: 97016; 97110; 97140; 97162; 97530

== ENCOUNTER 2024-04-25 07:00 | Outpatient (RCR) | payer MEDICARE, SELFPAY ==
--- NOTE | 2024-02-05 10:28 | HP.PTEVAL ---
Patient's Visit Information Visit Information Visit Information: RONNIE YARBROUGH is a 73 year old M referred to Physical Therapy by LEO Warner with a diagnosis of L2-S1 fusion (DOS aug 2023). Date of Evaluation: 02/05/24 Physical Therapist: hCuck Veliz DPT Visit Plan Frequency: 2-3x /Week Duration: 6 Weeks Plan: 1) home HEP focused on neutral spine for patient to take on trip 2) balance exercises progressing to SLS activities 3) gym progression exercises for LE and core. Subjective Subjective: Pt. is here today for his initial evaluation with diagnosis of L2-S1 fusions (three surgeries), with the most recent being in November. He also had a L knee replacement in Aug. He has started doing pain management. Pt. reports having pain in central lumbar region. No N/T, no sudden leg weakness. No changes in B/B. Pt. is sleeping well. Pt. would like to get rid of the can and have better balance, as well as improving strength in, BLEs. reduced walking due to pain. He has tried doing some gym exercises, but feels like he needs some help. Tries to avoid household work secondary pain in his back. He is going on a cheondoism camp to help next week. Pain Lumbar spine: Pain Intensity (Out of 10): 3 Pain Intensity Range: 7 Objective Objective: POSTURE: Pt. has slight flexed posture with pretty rigid lumbar spine. Wide RUPAL in stance, tends to lock knees out as well. PALPATION: Pt. has some mild tenderness throughout lumbar spine, but not severe. NEURO: Normal sensation and normal achilles DTR. Knees not tested secondary to B TKA. ROM: LUMBAR SPINE: Flexion min loss tightness noted, extension max loss increase NW, SB min loss bilat NE, rotation mod loss bilat NE. Pt has good HS length bilaterally, fairly stiff with hip flexors bilaterally. Great hip ER noted bilaterally. MMT: RLE: ankle PF 24#, DF 9#; knee: ext 63#, flexion 31#; hip: flexion 17#, abd 13#. LLE: ankle PF 21#, DF 10#; knee: ext 55#, flexion 33.1#; hip: flexion 18#, abd 13#. Core strength: poor. GAIT: PT. ambulates with SPC. He has increased trunk sway, but no LOB. I had him walk without SPC and had increased trunk sway, but still no LOB. Pt. able to maintain balance throughout. Balance/Special Test Scores Functional Gait Assessment Score: 19 % Disability: 36.6700 Oswestry Low Back Score: 23 TUG Test Time Seconds: 12.8 Goals Goal 1:: LTG: Pt. to be I with HEP for home and gym exercises. Goal Time Frame: 6-8 Weeks Goal 2:: STG: Pt. to be I with home program to take on his trip for core stability. Goal Time Frame: 1 Week Goal 3:: LTG: Pt. to have an increased in BLE strength by 10# throughout. Goal Time Frame: 6-8 Weeks Goal 4:: LTG: Pt. to be able to have normal and safe gait pattern without use of AD. Goal Time Frame: 6-8 Weeks Goal 5:: LTG: Pt. to have improved FGA to 23/30 indicated increased stability in stance. Goal Time Frame: 6-8 Weeks Rehabilitation Potential Physical Therapy Diagnosis: Pt. has signs and symptoms consistent with L2-S1 fusion and subsequent weakness, difficulty with gait and imbalance. Pt. would benefit from PT to address his core and B hip weakness as well as stability exercises to improve his balance and core stability. Rehabilitation Potential: Good Anticipated Interventions Patient/Client Instruction: Educate patient on: Condition, Plan of Care, Risk Factors and Benefits of Fitness Program For the Purpose of:: To improve decision making, To facilitate caregiver knowledge, To improve self management, To prevent re-injury, To improve ability to perform tasks related to life management and To improve tolerance to ADL's Therapeutic Exercise to Include: Strength training, Power training, Endurance training, Balance training, Postural training, Flexibilty training and Gait and locomotor training For the Purpose of:: To decrease pain, To increase ROM, To improve nutrient delivery to tissue, To increase oxygenation perfusion, To improve muscle performance and motor function, To improve ability to perform ADL's, To increase tolerance to activity/condition/position and To improve performance and independence with ADL's Text: Thank you for the opportunity to evaluate your patient. For Medicare and Medicare HMO plans, please review the plan of care and approve it. It will need to be FAXED BACK to us at [phone] for Medicare purposes. For Medicare only, by signing this I certify the plan of care. Please let me know if there are questions or concerns regarding this plan of care. Physician Signature: Date:
--- NOTE | 2024-03-28 07:28 | HP.PTREVAL_ITS ---
Re-Evaluation Intro: Roopa Rivera, TARA-Checo, It has been my pleasure to treat RONNIE YARBROUGH over the last 8 visits for L2- S1 fusion (DOS aug 2023). Please see the progress note below for an update on the physical therapy plan of care! Subjective Subjective: Pt. reports having 8/10 pain in lumbar spine, Right in the center. Pt. reports pain stays around this pain. He is going next week for an injection as well. Objective Objective/Function: MMT: RLE: ankle: DF 24#, PF48.5#; knee: ext 36.4#, flexion 29.1#; hip: flexion 25.7#, abd 34.3#. LLE: ankle: DF 35.6#, PF 48.5#; knee: ext 39.3#, flexion 28.7#; hip: flexion 33.9#, abd 27.9# Core strength poor+. GAIT: Pt. ambulates well with SPC, normal use no issues. Without AD, he is still I, but has some increased postural sway. No LOB noted. SGA: Pt. has much improved strength in RLE especially. I would like at this point in time to focus on balance and stability exercises in CK. Work on safety and dynamic movements in order to reduce risk for future falls. Pt. does a decent amount of outside work and I would like to have increased stability in order to reduce future risks for falls. Plan Plan Plan: Focus on dynamic balance including on foam and with eyes closed. Work on stability with tidal tank as well. Balance/Gait/Functional tests Balance/Special Test Scores Functional Gait Assessment Score: 20 % Disability: 33.3400 Oswestry Low Back Score: 15 TUG Test Time Seconds: 12.8 Tug Test: <20 sec.=mostly independent Goals Goals Goal 1:: LTG: Pt. to be I with HEP for home and gym exercises. Goal Time Frame: 6-8 Weeks Goal Progress: Goal Met Goal 2:: STG: Pt. to be I with home program to take on his trip for core stability. Goal Time Frame: 1 Week Goal 3:: LTG: Pt. to have an increased in BLE strength by 10# throughout. Goal Time Frame: 6-8 Weeks Goal Progress: Progressing Goal 4:: LTG: Pt. to be able to have normal and safe gait pattern without use of AD. Goal Time Frame: 6-8 Weeks Goal Progress: Progressing Goal 5:: LTG: Pt. to have improved FGA to 23/30 indicated increased stability in stance. Goal Time Frame: 6-8 Weeks Goal Progress: Progressing Anticipated Interventions Anticipated Interventions Patient/Client Instruction: Educate patient on: Condition, Plan of Care, Risk Factors and Benefits of Fitness Program For the Purpose of:: To improve decision making, To facilitate caregiver knowledge, To improve self management, To prevent re-injury, To improve ability to perform tasks related to life management and To improve tolerance to ADL's Therapeutic Exercise to Include: Strength training, Power training, Endurance training, Balance training, Postural training, Flexibilty training and Gait and locomotor training For the Purpose of:: To decrease pain, To increase ROM, To improve nutrient delivery to tissue, To increase oxygenation perfusion, To improve muscle performance and motor function, To improve ability to perform ADL's, To increase tolerance to activity/condition/position and To improve performance and independence with ADL's Re-Evaluation Ending Re-evaluation ending: Please do not hesitate to contact me at [phone] by phone or if you have questions or concerns regarding this new plan of care! Sincerely, Chuck Veliz DPT
--- NOTE | 2024-04-22 07:44 | HP.PTEVAL2_ITS ---
Patient's Visit Information Visit Information Visit Information: RONNIE YARBROUGH is a 73 year old M referred to Physical Therapy by LEO Warner with a diagnosis of vertigo. Date of Evaluation: 04/22/24 Physical Therapist: Daniel Gupta, DPT, OCS, CSCS Visit Plan Frequency: 1x/Week Duration: 2 Months Plan: Pt has been in PT for balance for a couple months now and is feeling better. I have added to that habituation head movement ex today in a safe sitting position as patient is going on a 3 week mission trip. He will f/u upon return for progression of these habituation ex to balance with head movements as needed and further MSQ exploration. Subjective Subjective: Getting up in the morning cannot pop right out of bed, spins when he sits up for a few seconds. Bending over will make it happen also. Walking in dark is dangerous unsteady. Uses cane to get around for the last two years. Has been getting this dizzy for 3 yrs. [id number] is Ok and he sleeps flat in bed and moves around. Activiities are avoiding climbing ladders but won't let him anyway. Worksout in gym 5 days per week and no dizzyness at . Basic ADLs are getting done slowly. bending is main problem. Hobbies: woodworking used to be but bending over the tablesaw can be dangerous so has stopped. Will go on mission trip this weekend and gone 3 weeks, to [place]. 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 No falls lately and has been working on balance for the last couple months with another therapist here, just wants vestibular system checked out. Has some neuropathy in feet. No falls. Objective Objective: Walks with cane in to T mod I slow iwth neuropathic gait pattern avoiding FW weight shift and push off . trasnfers I with UE. Steps reciprocal with one rail and avoids forefoot WB. cervical AROM is limited to 20 ext and 40 B rotation. UE AROM is limited L UE due to shoulder OA 100 degrees and L to 130, functional. Positional testing: - B HD, - roll test Oculomotor: no nystagmus today with gaze or head shake normal purusuit and saccades without symptoms. VOR normal with slight symptoms quickly. H and V. - head thrust - skew eye deviation - ocular tilt head turns and nods and up from HD and up form knee all give quick dizzy feeling. Balance/Special Gait Scores Functional Gait Assessment Score: 20 % Disability: 33.3400 Goals Goal 1:: Sit up in am without dizzyness Goal Time Frame: 6-8 Weeks Goal 2:: bend and recover without symptoms Goal Time Frame: 6-8 Weeks Goal 3:: I appropriate ex to manage condition Goal Time Frame: 6-8 Weeks Rehabilitation Potential Physical Therapy Diagnosis: dizzyness with position change, possibly vestibular component but no BPPV Rehabilitation Potential: Fair Anticipated Interventions Patient/Client Instruction: Educate patient on: Condition and Risk Factors For the Purpose of:: To increase tolerance to activity/condition/position For the Purpose of:: To increase tolerance to activity/condition/position, To improve ability of physical actions for home/community/work/leisure and To improve safety text: Thank you for the opportunity to evaluate your patient. For Medicare and Medicare HMO plans, please review the plan of care and approve it. It will need to be FAXED BACK to us at [phone] for Medicare purposes. For Medicare only, by signing this I certify the plan of care. Please let me know if there are questions or concerns regarding this plan of care. Physician Signature: Date:
--- NOTE | 2024-04-25 07:33 | HP.PTDCSUM_ITS ---
Discharge Summary D/C summary: It has been my pleasure to treat RONNIE YARBROUGH referred by LEO Warner, with the diagnosis of L2-S1 fusion (DOS aug 2023) for a total of 16 visit(s). Discharge Date: 04/25/24 Please see the following information for a summary of their discharge status. Subjective Subjective: Pt. reports having some pain in his back, soreness. Pt. reports being 80% better overall. Pain Lumbar spine: Pain Intensity (Out of 10): 2 Overall Improvement % Improvement: 80 Objective Objective/Function: MMT: RLE: ankle: DF 51.1#, PF 49.3#; knee: Ext 51.9#, flexion 31.1#; hip: flexion 19.6#, abd 17.8# LLE: ankle: DF 49.9#, PF 51.9#; knee: ext 49.1#, flexion 19.6#; hip: flexion 2 1.5#, abd 18.3# GAIT: Pt. ambulated very well with SPC this date. Much improved postural sway. Pt. does have a slight forward flexed posture with gait. He did walk without AD, which was also much improved. Pt. reported no increase in symptoms with out use of AD. Overall much reduced trunk sway with gait. STAIRS: 1 HR with reciprocal pattern without LOB. TUG 10.3sec without AD FGA , greatest difficulty was with narrow RUPAL and with eyes closed. Goals Goal 1:: LTG: Pt. to be I with HEP for home and gym exercises. Goal Progress: Goal Met Goal 2:: STG: Pt. to be I with home program to take on his trip for core stability. Goal 3:: LTG: Pt. to have an increased in BLE strength by 10# throughout. Goal Progress: Goal Met Goal 4:: LTG: Pt. to be able to have normal and safe gait pattern without use of AD. Goal Progress: Goal Met Goal 5:: LTG: Pt. to have improved FGA to indicated increased stability in stance. Goal Progress: Goal Met Plan Plan: Pt. is going on a missions trip. I talked to him about completing his exercises on his own at this point in time. He did consent to this. He was h esitant due to wanting to continue. Pt. is to complete his exercises for the next month. He is still seeing Daniel for his Vestibular activities. He will re check with him in a month once he gets back. D/C Information d/c sentence: If there are questions or concerns regarding this patient's physical therapy, please feel free to call me at [phone]. Thank you for the referral of this patient. Sincerely, Chuck Veliz, DPT Balance/Gait/Functional tests Balance/Special Test Scores Functional Gait Assessment Score: 24 % Disability: 20.0000 Oswestry Low Back Score: 12 Dizziness Score: 22 TUG Test Time Seconds: 10.3 Tug Test: <20 sec.=mostly independent Improvement % Improvement: 80
== END 2024-04-25 19:00 | disposition home or self-care (01) ==
LOC: PT 07:00
PROVIDERS: PCP Family Medicine; Referring Provider Nurse Practitioner; Visit Provider Nurse Practitioner
DX: Z98.1 Arthrodesis status (principal)
CPT/HCPCS: 97110; 97161; 97530

== ENCOUNTER → 2024-08-21 | Outpatient (CLI) | payer MEDICARE, SELFPAY | END | disposition home or self-care (01) | LOC: PSN 07:32 | PROVIDERS: PCP Family Medicine; Referring Provider Internal Medicine Cardiovascular Disease; Visit Provider Internal Medicine Cardiovascular Disease | DX: R94.31 Abnormal electrocardiogram [ECG] [EKG] (principal) | CPT/HCPCS: 93225; 93226 ==

== ENCOUNTER → 2025-02-26 | Outpatient (CLI) | payer MEDICARE, SELFPAY ==
--- NOTE | 2025-02-26 06:03 | ECHOD_ITS ---
Reason For Study Reason For Study: Pre-op clearance Procedure This was a 2D Doppler, Color Flow transthoracic echocardiogram. Exam performed in department. Left Ventricle Normal LV size. Moderate concentric left ventricular hypertrophy. The LV systolic function is normal. EF is 70 %. Stage 1 diastolic dysfunction. Right Ventricle Normal right ventricle. Atria There is moderate biatrial dilatation. Mitral Valve Trivial mitral valve insufficiency. Tricuspid Valve Trivial tricuspid valve insufficiency. Right ventricular systolic pressure estimated to be 40 mmHg. Aortic Valve Aortic sclerosis, no stenosis. Pulmonic Valve The pulmonic valve is not well visualized. Great Vessels The aortic root is not well visualized. Pericardium/Pleural No pericardial effusion. MMode/2D Measurements & Calculations LVIDd: 3.9 cm IVSd: 1.2 cm LVOT diam: 2.1 cm LVIDs: 2.5 cm LVPWd: 0.96 cm LVOT area: 3.4 cm2 RVDd: 4.0 cm FS: 34.6 % Ao root diam: 3.2 cm LAV(MOD-bp): 42.4 ml LVAd ap4: 24.8 cm2 LA dimension: 4.5 cm LAV(MOD-bp) Indexed: 20.0 ml/m2 LVLd ap4: 8.9 cm LAV(MOD-sp2): 45.6 ml EDV(MOD-sp4): 58.2 ml LAV(MOD-sp4): 38.7 ml EDV(sp4-el): 58.7 ml LVAs ap4: 13.0 cm2 LVLs ap4: 7.6 cm ESV(MOD-sp4): 19.3 ml ESV(sp4-el): 19.0 ml EF(MOD-sp4): 66.9 % EF(sp4-el): 67.7 % LVAd ap2: 26.5 cm2 SV(MOD-sp4): 38.9 ml SV(MOD-sp2): 45.9 ml LVLd ap2: 8.9 cm SI(MOD-sp4): 18.4 ml/m2 SI(MOD-sp2): 21.7 ml/m2 EDV(MOD-sp2): 66.2 ml EDV(sp2-el): 66.5 ml LVAs ap2: 12.9 cm2 LVLs ap2: 7.5 cm ESV(MOD-sp2): 20.3 ml ESV(sp2-el): 18.9 ml EF(MOD-sp2): 69.3 % SV(sp4-el): 39.8 ml LA dimension(2D): 4.0 cm LA A4 area: 16.0 cm2 RA A4 area: 18.6 cm2 TAPSE: 1.9 cm Time Measurements MV dec time: 0.39 sec Doppler Measurements & Calculations MV E max bahman: 51.7 cm/sec Lat Peak E' Bahman: 6.7 cm/sec Med Peak E' Bahman: 5.9 cm/sec MV A max bahman: 81.5 cm/sec E/E' lat: 7.7 E/E' med: 8.8 MV E/A: 0.63 Ao V2 max: 175.5 cm/sec LV V1 max: 141.1 cm/sec MV dec slope: 134.2 cm/sec2 Ao max P.3 mmHg LV V1 max P.0 mmHg Ao V2 mean: 131.8 cm/sec LV V1 mean P.6 mmHg Ao mean P.5 mmHg LV V1 mean: 100.4 cm/sec Ao V2 VTI: 32.0 cm LV V1 VTI: 27.2 cm AV (velocity ratio): 0.85 ALLEY(I,D): 2.9 cm2 ALLEY(V,D): 2.8 cm2 SV(LVOT): 93.8 ml TR max bahman: 296.2 cm/sec TR max P.1 mmHg ECHO/Echo Complete Interpretation Summary Moderate concentric left ventricular hypertrophy. The LV systolic function is normal. EF is 70 %. Stage 1 diastolic dysfunction. There is moderate biatrial dilatation. Right ventricular systolic pressure estimated to be 40 mmHg. Aortic sclerosis, no stenosis. Ordering Physician: Patsy Gamble Referring Physician: Ovidio Guevara Performed By: Ellyn Zuniga RDCS
--- OUTSIDE RECORDS SUMMARY | 2025-02-26 06:15 | XMS RPT_ITS | CCD ---
Author Organization [facility] Inform ion Partnership [facility] Care Team Providers Care Tour Agent Name Role Phone Heladio JOHNSON MD, Becky Unavailable Ambika RN, Lola Unavailable Unavailable Tato Castro Unavailable Santos Woods MD Unavailable Fidel De La Garza MD Unavailable Halima Cohen RN (Rn) Unavailable Ovidio Vincent MD Primary Care Provider Nargis Ortega RN Unavailable Unavail able Heladio JOHNSON MD, Becky Unavailable Ambika RN, Lola Unavailable Unavailable Tato Castro Unavailable Santos Woods MD Unavailable Fidel De La Garza MD Unavailable Halima Cohen RN (Rn) Unavailable Ovidio Vincent MD Primary Care Provider Nargis Ortega RN Unavailable Ela Alvarez MD Unavailable Nancie Low RN Unavailable Tato Castro Unavailable Halima Cohen RN (Rn) Unavailable Ovidio Vincent MD Primary Care Provider Nargis Ortega RN Unavailable Nancie Low RN Unavailable Heladio JOHNSON MD, Becky Unavailable Tato Castro Unavailable Peggy JOHNSON, Santos Unavailable Frederic JOHNSON, Fidel Unavailable Noel RN, Halima (Rn) Unavailable Ovidio Vincent MD Primary Care Provider Jordan VARGAS, Nargis Goddard Unavailable Ela Alvarez MD Unavailable Devante RN, Nancie Unavailable Geo VARGAS, Mara Unavailable Unavailable OVIDIO VINCENT Primary Care Unavailable PROVIDER, UNKNOWN Referring Unavailable Ela Alvarez MD Unavailable Hu RN, Marta Unavailable Tato Castro Unavailable Noel RN, Halima (Rn) Unavailable Ela Alvarez MD Unavailable Devante RN, Nancie Unavailable Hu RN, Marta Unavailable Kali JOHNSON, Murray Unavailable Dr. Ovidio Vincent Primary Care Provider Dr. Ovidio Vincent Referring Provider Dr. Patsy Gamble Attending Provider Navin PACHECO, TARA-C Maria Isabel Attending Provider Tato Castro MD Unavailable Geo VARGAS, Mara Unavailable Unavailable Yulisa JOHNSON, Leno Lynch Unavailable Dr. Ovidio Vincent Primary Care Provider Dr. Ovidio Vincent Referring Provider Dr. Patsy Gamble Attending Provider Heladio JOHNSON, Becky Unavailable Loretta Leon PA-C Unavailable Ovidio Vincent MD A Primary Care Provider Ismael JOHNSON, Ovidio Peter Primary Care Provider Yulisa JOHNSON, Leno Unavailable Jordan VARGAS, Nargis Goddard Unavailable Ela Alvarez MD Unavailable Bernadette ORTHOTIC TECHNICIAN.DOUGHNUT ICER MACHINE, Rebecca Unavailable Moy PALMER, Leslye Unavailable Ismael JOHNSON, Dr. Nolan Primary Care Provider Ismael JOHNSON, Dr. Nolan Referring Provider Jason JOHNSON, Dr. Solis Attending Provider Zandra JOHNSON, Dr. Cardenas Attending Provider [phone] Tye JOHNSON, Dr. Garner Attending Provider Knrohan ORTHOTIC TECHNICIAN.DOUGHNUT ICER MACHINE, Rebecca Unavailable Moy PALMER, Leslye Unavailable ISMAEL, OVIDIO A Primary Care Unavailable LORETTA LEON Referring Unavailable HAYDE WARD Attending Unavailable ISMAEL, OVIDIO A Primary Care Unavailable TRISTEN WINTERE Referring Unavailable ISMAEL, OVIDIO A Primary Care Unavailable LORETTA LEON Referring Unavailable TRISTEN WINTERE Attending Unavailable ISMAEL, OVIDIO A Primary Care Unavailable MURRAY MOONEY Referring Unavailable MURRAY MOONEY Attending Unavailable ISMAEL, OVIDIO A Primary Care Unavailable ISMAEL, OVIDIO A Referring Unavailable ISMAEL, OVIDIO A Primary Care Unavailable LESLYE WINTER Referring Unavailable ISMAEL, OVIDIO A Attending Unavailable ISMAEL, OVIDIO A Primary Care Unavailable CAIO GOMEZ Referring Unavailable ISMAEL, OVIDIO A Primary Care Unavailable ISMAEL, OVIDIO A Referring Unavailable ISMAEL, OVIDIO A Primary Care Unavailable REBECCA JANSEN Attending Unavailable ISMAEL, OVIDIO A Primary Care Unavailable MURRAY MOONEY Referring Unavailable ISMAEL, OVIDIO A Primary Care Unavailable ESVIN MARCUS Attending Unavailable ISMAEL, OVIDIO A Primary Care Unavailable MURRAY MOONEY Referring Unavailable ISMAEL, OVIDIO A Primary Care Unavailable ISMAEL, OVIDIO A Referring Unavailable ISMAEL, OVIDIO A Primary Care Unavailable ISMAEL, OVIDIO A Referring Unavailable ISMAEL, OVIDIO A Primary Care Unavailable MURRAY MOONEY Referring Unavailable ISMAEL, OVIDIO A Primary Care Unavailable TESTRAKE, ESVIN Referring Unavailable ISMAEL, OVIDIO A Primary Care Unavailable ISMAEL, OVIDIO A Referring Unavailable TESTRAKE, ESVIN Attending Unavailable ISMAEL, OVIDIO A Primary Care Unavailable ISMAEL, OVIDIO A Attending Unavailable Gomez, Caio Attending Unavailable Ismael, Ovidio Primary Care Unavailable Corrigall, Roopa Attending Unavailable Ismael, Ovidio Primary Care Unavailable Corrigall, Roopa Referring Unavailable Tye, Patsy Attending Unavailable Tye, Patsy Referring Unavailable Ismael, Ovidio Primary Care Unavailable Gomez, Caio Referring Unavailable Gomez, Caio Attending Unavailable Ismael, Ovidio Primary Care Unavailable Ismael, Ovidio Primary Care Unavailable Ronald De Paz Attending Unavailable Tye, Patsy Attending Unavailable Ismael, Ovidio Referring Unavailable Ismael, Ovidio Primary Care Unavailable Gomez, Caio Attending Unavailable Ismael, Ovidio Primary Care Unavailable Ismael, Ovidio Referring Unavailable Tye, Patsy Attending Unavailable Ismael, Ovidio Primary Care Unavailable Ismael, Ovidio Referring Unavailable Gomez, Caio Attending Unavailable Ismael, Ovidio Primary Care Unavailable Ismael, Ovidio Referring Unavailable Tye, Patsy Attending Unavailable Ismael, Ovidio Referring Unavailable Simael, Ovidio Primary Care Unavailable Gomez, Caio Attending Unavailable Ismael, Ovidio Primary Care Unavailable Ismael, Ovidio Referring Unavailable Tye, Patsy Attending Unavailable Tye, Patsy Referring Unavailable Ismael, Ovidio Primary Care Unavailable Tye, Patsy Attending Unavailable Tye, Patsy Referring Unavailable Ismael, Ovidio Primary Care Unavailable Tye, Patsy Attending Unavailable Tye, Patsy Referring Unavailable Ismael, Ovidio Primary Care Unavailable Gomez, Caio Referring Unavailable Gomez, Caio Attending Unavailable Ismael, Ovidio Primary Care Unavailable Tye, Patsy Referring Unavailable Tye, Patsy Attending Unavailable Ismael, Ovidio Primary Care Unavailable Allergies Allergy Classification Reported Allergen(s) Allergy Type Date of Onset Reaction(s) Facility Anti-Epileptic Agents (1 source) gabapentin Drug Allergy 06-24-2018 Other: See Comments [facility] Work Phone: (20 sources) gabapentin; Translations: [GABAPENTIN] Drug Allergy 06-24-2018 Other: See Comments [facility] Work Phone: Medications Current Medications Medication Drug Class(es) Dates Sig (Normalized) Sig (Original) amoxicillin 875 mg / clavulanate 125 mg oral tablet (20 sources) Penicillin-class Antibacterial Start: 05-15-2024 End: 11-18-2024 take 1 tablet by mouth every twelve hours amoxicillin-clavul anate potassium (AUGMENTIN) 875-125 mg per tablet Take 1 tablet by mouth every 12 hours. 05/15/2024 11/18/2024 Discontinued Start: 01-20-2022 End: 01-27-2022 take 1 tablet by mouth twice daily amoxicillin-clavulanic acid (AUGMENTIN) 875-125 mg per tablet Indications: Cough Take 1 tablet by mouth twice daily for 7 days. 14 tablet 0 01/20/2022 01/27/2022 Active Comment on above: Take 1 tablet by josephine th twice daily for 7 days. aspirin 81 mg delayed release oral tablet (20 sources) Platelet Aggregation Inhibitor, Nonsteroidal Anti-inflammatory Drug Start: 1 End: 3 take 1 tablet by mouth once daily Aspirin 81 mg tablet,delayed release (DR/EC) Active 81 mg PO DAILY January 05, 2023 12:00am Comment on above: Take 1 tablet by josephine th once daily. take 1 tablet by josephine th once daily atorvastatin 40 mg oral tablet (20 sources) HMG-CoA Reductase Inhibitor Start: 4 End: 5 take 1 tablet by mouth once daily Atorvastatin 40 mg tablet Active 40 mg PO daily March 06, 2024 12:00am Start: 05-11-2023 take 1 tablet by josephine th once daily atorvastatin (LIPITOR) 40 mg tablet Take 1 tablet by mouth once daily. 90 tablet 1 05/11/2023 Active Start: 11-10-2021 End: 05-01-2023 take 1 tablet by mouth once daily Atorvastatin 40 mg tablet Discontinued 40 mg PO DAILY January 05, 2023 12:00am May 01, 2023 11:18am Comment on above: Take 1 tablet by josephine th once daily. For cholesterol. take 1 tablet by josephine th once daily Take 1 tablet by josephine th once daily. azithromycin 250 mg oral tablet (1 source) Macrolide Antimicrobial Start: 01-28-20 End: 02-02-20 azithromycin (ZITHROMAX Z-RASHAD) 250 mg tablet Indications: Cough Take 2 tablets day one, then, 1 tablet daily until gone. 6 tablet 0 01/27/2022 02/01/2022 Active Comment on above: Take 2 tablets day o ne, then, 1 tablet daily until gone. calcium carbonate 1500 mg / cholecalciferol 200 unt oral capsule (20 sources) Vitamin D take 1 capsule by mouth once daily Calcium-Cholecalcif elma, D3, 600 mg-5 mcg (200 unit) cap Take 1 capsule by mouth once daily. Active Comment on above: Take 1 capsule by mo [facility] once daily. Calcium Carbonate-Vitamin D2 (6 sources) Start: 01-06-20 take 1 tablet by mouth once daily Calcium Carbonate-Vitamin D2 Active 200 TABLET PO DAILY January 04, 2023 11:00pm Start: 01-05-2023 take 1 tablet by josephine once daily Calcium Carbonate-Vitamin D2 Active 200 TABLET PO DAILY January 05, 2023 12:00am Calcium Carbonate-Vitamin D2 600 mg calcium- 200 unit Tablet (2 sources) Start: 01-05-2023 Calcium Carbonate-Vitamin D2 600 mg calcium- 200 unit Tablet Active 200 {tbl} PO DAILY January 05, 2023 12:00am carvedilol 12.5 mg oral tablet (20 sources) alpha-Adrene rgic Genesis, beta-Adrener gic Genesis Start: 05-27-2024 take 2 tablets by mouth twice daily at mealtime carvedilol (COREG) 6.25 mg tablet Take 2 tablets by mouth two times a day with meals. Per [facility] 05/27/2024 Active Start: 04-16-2024 End: 05-27-2024 take 0.5 tablet by mouth twice daily at mealtime carvedilol (COREG) 25 mg tablet Take 0.5 tablets by mouth two times a day with meals. Per [facility] 04/16/2024 05/27/2024 Discontinued (Adjust Sig - Block E-Cancel) Start: 04-02-2024 End: 12-20-2024 take 1 tablet by mouth twice daily at mealtime Carvedilol 12.5 mg tablet Active 12.5 mg PO TWICE A DAY 180 December 20, 2024 1:21pm must administer with a meal/food Start: 03-06-2024 End: 04-16-2024 take 1 tablet by mouth twice daily at mealtime Carvedilol 25 mg tablet Discontinued 25 mg PO TWICE A DAY 180 March 06, 2024 12:00am April 02, 2024 2:42pm must administer with a meal/food Start: 08-17-2023 End: 03-06-2024 take 1 tablet by mouth twice daily at mealtime Carvedilol 12.5 mg tablet Discontinued 12.5 mg PO TWICE A DAY 180 December 20, 2023 3:36pm March 06, 2024 9:36am must administer with a meal/food Start: 05-11-2023 End: 06-05-2023 take 1 tablet by mouth twice daily carvedilol (COREG) 3.125 mg tablet Take 1 tablet by mouth twice daily. 180 tablet 1 05/29/2023 06/05/2023 Discontinued Start: 05-02-2023 End: 08-18-2023 take 1 tablet by mouth twice daily at mealtime Carvedilol 6.25 mg tablet Discontinued 6.25 mg PO TWICE A DAY 180 July 24, 2023 5:06pm August 17, 2023 4:53pm must administer with a meal/food Start: 04-05-2023 End: 05-02-2023 take 1 tablet by mouth twice daily Carvedilol 3.125 mg tablet Discontinued 3.125 mg PO TWICE A DAY May 02, 2023 12:00am May 02, 2023 10:22am Comment on above: Take 1 tablet by josephine twice daily. Take 1 tablet by josephine two times a day. Per [facility] cephalexin 250 mg oral capsule (2 sources) Cephalosporin Antibacterial Start: End: take 1 capsule by mouth four times daily cephALEXin (KEFLEX) 250 mg capsule Indications: Swelling of left hand Take 1 capsule by mouth four times daily for 5 days. 20 capsule 0 04/18/2022 04/23/2022 Active Comment on above: Take 1 capsule by mo [facility] four times daily for 5 days. cholecalciferol 0.05 mg oral tablet (20 sources) Vitamin D Start: 023 take 1 tablet by mouth once daily Cholecalciferol (Vitamin D3) 50 mcg (2,000 unit) tablet Active 50 ug PO DAILY January 05, 2023 12:00am Start: 11-03-2021 End: 05-10-2024 take 1 capsule by mouth once daily Cholecalciferol, Vitamin D3, (VITAMIN D-3) 50 mcg (2,000 unit) cap Indications: Vitamin D deficiency Take 1 capsule by mouth once daily. 90 capsule 3 05/11/2023 Active Comment on above: Take 1 capsule by mo [facility] once daily. dapagliflozin 10 mg oral tablet (20 sources) Sodium-Glucose Cotransporter 2 Inhibitor Start: 03-31-20 End: 12-12-19 take 1 tablet by mouth once daily Dapagliflozin Propanediol (Farxiga) 10 mg tablet Active 10 mg PO DAILY May 02, 2023 12:00am Start: 11-03-2021 End: 05-01-2023 take 1 tablet by mouth once daily Dapagliflozin Propanediol 5 mg Tablet Discontinued 5 mg PO DAILY January 05, 2023 12:00am May 01, 2023 11:18am Comment on above: Take 1 tablet by [facility] once daily. Take one daily in the morning diazePAM 2 mg oral tablet (5 sources) Benzodiazepine Start: 04-16-20 End: 05-01-20 take 1 tablet by mouth every twelve hours as needed diazePAM (VALIUM) 2 mg tablet Indications: Vertigo , Muscle spasms of neck Take 1 tablet by mouth every 12 hours as needed for up to 15 days. 30 tablet 0 04/16/2024 05/01/2024 Active doxycycline monohydrate 100 mg oral capsule (20 sources) Tetracycline-class Drug Start: 05-15-20 End: 11-19-19 take 1 capsule by mouth twice daily doxycycline monohydrate (MONODOX) 100 mg capsule TAKE 1 CAPSULE BY MOUTH TWICE DAILY FOR 28 DAYS 05/15/2024 11/18/2024 Discontinued Dulaglutide (20 sources) GLP-1 Receptor Agonist Start: 02-05-20 Dulaglutide (Dulaglutide 3 Mg/0.5 Ml Subcutaneous Pen Injector) 3 mg/0.5 mL pen injector Active 3 mg SC EVERY WEEK February 04, 2025 12:00am Start: 10-11-2021 End: 02-04-2025 Dulaglutide (Trulicity) 1.5 mg/0.5 mL pen injector Discontinued 1.5 mg SC EVERY WEEK May 01, 2023 11:12am February 04, 2025 9:12am Comment on above: Inject 1.5 mg subcut aneously one time a week. Inject once per week. Discard Pen After dulaglutide (TRULICITY) 3 mg/0.5 mL pen injector (20 sources) Start: 10-02-2024 dulaglutide (TRULICITY) 3 mg/0.5 mL pen injector Indications: Type 2 diabetes mellitus without complication, without long-term current use of insulin (HCC) Inject 3 mg subcutaneously one time a week. Inject once per week. Discard Pen After 12 Each 10/02/2024 Active Start: 04-16-2024 End: 10-02-2024 dulaglutide (TRULICITY) 3 mg /0.5 mL pen injector Indications: Type 2 diabetes mellitus without complication, without long-term current use of insulin (HCC) Inject 3 mg subcutaneously one time a week. Inject once per week. Discard Pen After 12 Each 04/16/2024 10/02/2024 Discontinued Start: 04-16-2024 dulaglutide (T RULICITY) 3 mg/0.5 mL pen injector Indications: Type 2 diabetes mellitus without complication, without long-term current use of insulin (HCC) Inject 3 mg subcutaneously one time a week. Inject once per week. Discard Pen After 12 Each 04/16/2024 Active Start: 04-08-2024 End: 04-16-2024 dulaglutide (TRULICITY) 3 mg /0.5 mL pen injector Indications: Type 2 diabetes mellitus without complication, without long-term current use of insulin (HCC) Inject 3 mg subcutaneously one time a week. Inject once per week. Discard Pen After 12 Each 04/08/2024 04/16/2024 Discontinued Start: 04-08-2024 dulaglutide (T RULICITY) 3 mg/0.5 mL pen injector Indications: Type 2 diabetes mellitus without complication, without long-term current use of insulin (HCC) Inject 3 mg subcutaneously one time a week. Inject once per week. Discard Pen After 12 Each 04/08/2024 Active Start: 09-27-2023 End: 04-08-2024 dulaglutide (TRULICITY) 3 mg /0.5 mL pen injector Indications: Type 2 diabetes mellitus without complication, without long-term current use of insulin (HCC) Inject 3 mg subcutaneously one time a week. Inject once per week. Discard Pen After 12 Each 1 09/27/2023 04/08/2024 Discontinued Start: 09-27-2023 dulaglutide (T RULICITY) 3 mg/0.5 mL pen injector Indications: Type 2 diabetes mellitus without complication, without long-term current use of insulin (HCC) Inject 3 mg subcutaneously one time a week. Inject once per week. Discard Pen After 12 Each 1 09/27/2023 Active Comment on above: Inject 3 mg subcutan eously one time a week. Inject once per week. Discard Pen After 30 actuat fluticasone furoate 0.1 mg/actuat / umeclidinium 0.0625 mg/actuat / vilanterol 0.025 mg/actuat dry powder inhaler (20 sources) Anticholinergic, Corticosteroid, beta2-Adrenergic Agonist Start: End: take 1 puff(s) by mouth once daily fluticasone-umecli din-vilanter (TRELEGY ELLIPTA) 100-62.5-25 mcg inhalation powder inhale 1 puff by mouth and INTO THE LUNGS once daily 3 Each 3 11/20/2024 Active Start: 05-02-2023 Fluticasone-Um eclidin-Vilanter (Trelegy Ellipta) 100-62.5-25 mcg blister with device Active 1 NMA INHALATION DAILY May 02, 2023 9:30am Start: 05-02-2023 Fluticasone-Um eclidin-Vilanter (Trelegy Ellipta) 100-62.5-25 mcg blister with device Active 1 INH INHALATION DAILY May 02, 2023 8:30am Start: 05-02-2023 Fluticasone-Um eclidin-Vilanter (Trelegy Ellipta) 100-62.5-25 mcg blister with device Active 1 INH INHALATION DAILY May 02, 2023 9:30am Start: 05-01-2023 End: 05-19-2023 take 1 puff(s) by mouth once daily TRELEGY ELLIPTA 100-62.5-25 mcg inhalati on powder inhale 1 puff by mouth and INTO THE LUNGS once daily 1 Each 11 05/01/2023 05/19/2023 Discontinued Start: 01-11-2023 End: 05-02-2023 Eyztbfmtdsd-Ubzlhutle-Abqnag er (Trelegy Ellipta) 100-62.5-25 mcg Blister With Device Discontinued 1 NMA INHALATION DAILY 0 January 11, 2023 12:00am May 02, 2023 9:34am Start: 01-11-2023 End: 05-02-2023 Btfdbupnmkw-Drrfffqsz-Bzotob er (Trelegy Ellipta) 100-62.5-25 mcg Blister With Device Discontinued 1 EACH INHALATION DAILY 0 January 10, 2023 11:00pm May 02, 2023 8:34am Start: 01-11-2023 End: 05-02-2023 Jjxdoaqiwbu-Ocmbhpetk-Mxokfe er (Trelegy Ellipta) 100-62.5-25 mcg Blister With Device Discontinued 1 EACH INHALATION DAILY 0 January 11, 2023 12:00am May 02, 2023 9:34am Start: 01-11-2023 Fluticasone-Um eclidin-Vilanter (Trelegy Ellipta) 100-62.5-25 mcg Blister With Device Active 1 EACH INHALATION DAILY 0 January 11, 2023 12:00am Start: 01-05-2023 End: 05-02-2023 Lnyyukotmci-Amagaaqgb-Wxlzqs er 100-62.5-25 mcg Blister With Device Discontinued 1 NMA INHALATION DAILY January 05, 2023 12:00am May 02, 2023 9:32am Start: 01-05-2023 End: 05-02-2023 Lnsafctsgqd-Ukrtjagzf-Qsrcni er Discontinued 1 INH INHALATION DAILY January 04, 2023 11:00pm May 02, 2023 8:32am Start: 01-05-2023 End: 05-02-2023 Akuhcwxcoer-Ewncgmuci-Aoqkna er Discontinued 1 INH INHALATION DAILY January 05, 2023 12:00am May 02, 2023 9:32am Start: 01-05-2023 Fluticasone-Um eclidin-Vilanter Active 1 INH INHALATION DAILY January 05, 2023 12:00am Start: 08-08-2022 End: 05-01-2023 take 1 puff(s) by inhalation once daily atscjzkquzy-klpgncvmo-itmmsmoy (TRELEGY ELLIPTA) 100-62.5-25 mcg inhalation powder Inhale 1 Puff as instructed once daily. 1 Each 5 08/08/2022 05/01/2023 Discontinued Comment on above: Inhale 1 Puff as ins tructed once daily. inhale 1 puff by josephine th and INTO THE LUNGS once daily losartan potassium 25 mg oral tablet (20 sources) Angiotensin 2 Receptor Genesis Start: 05-27-2024 End: 01-16-2025 take 0.5 tablet by mouth once daily losartan (COZAAR) 25 mg tablet Take 0.5 tablets by mouth once daily. 90 tablet 1 01/16/2025 Active Start: 10-10-2023 End: 05-27-2024 take 1 tablet by mouth once daily losartan (COZAAR) 25 mg tablet Take 1 tablet by mouth once daily. 90 tablet 1 03/13/2024 05/27/2024 Discontinued (Adjust Sig - Block E-Cancel) Start: 01-05-2023 Losartan 25 mg tablet Active 12.5 mg PO DAILY January 05, 2023 12:00am Start: 08-31-2021 End: 03-30-2023 take 1 tablet by mouth once daily losartan (COZAAR) 25 mg tablet Take 1 tablet by mouth once daily. 90 tablet 1 07/04/2022 11/03/2022 Discontinued Comment on above: Take 1 tablet by josephine th once daily. take 1 tablet by josephine th once daily magnesium oxide 250 mg oral tablet (20 sources) Start: 08-08-2024 take 1 tablet by mouth twice daily Magnesium Oxide 250 mg magnesium tablet Active 250 mg PO TWICE A DAY August 08, 2024 1:00am Start: 04-16-2024 Magnesium Oxid e 250 mg magnesium tab Take two in the AM and one in the PM. 04/16/2024 Active Start: 05-10-2021 End: 04-19-2022 take 1 capsule by mouth once daily magnesium oxide 400 mg magnesium cap Take 1 capsule by mouth once daily. 90 capsule 3 05/10/2021 04/19/2022 Discontinued Comment on above: Take 1 capsule by mo [facility] once daily. metFORMIN hydrochloride 1000 mg oral tablet (20 sources) Biguanide Start : 10-18 End: 11-30 take 1 tablet by mouth twice daily at mealtime metFORMIN (GLUCOPHAGE) 1,000 mg tablet Take 1 tablet by mouth two times a day with meals. 180 tablet 1 12/02/2024 Active Comment on above: Take 1 tablet by josephine th twice daily with meals. Take 1 tablet by josephine th two times a day with meals. methylPREDNISolone (1 source) Corticosteroid Start : 07-04 End: 07-10 methylPREDNISolone (MEDROL, RASHAD,) 4 mg Dose-Pack Follow dosing instructions, take with food. 21 tablet 0 07/04/2022 07/10/2022 Active Comment on above: Follow dosing instru ctions, take with food. Multivitamin preparation (6 sources) Start : 01-05 take 1 tablet by mouth once daily Multivitamin Active 1 TABLET PO DAILY January 04, 2023 11:00pm Start: 01-05-2023 take 1 tablet by josephine th once daily Multivitamin Active 1 TABLET PO DAILY January 05, 2023 12:00am Multivitamin Tablet (2 sources) Start: 01-05-2023 Multivitamin Tablet Active 1 {tbl} PO DAILY January 05, 2023 12:00am omeprazole 40 mg delayed release oral capsule (20 sources) Proton Pump Inhibitor Start: 08-31-2021 End: 09-03-2024 take 1 capsule by mouth once daily Omeprazole 40 mg capsule,delayed release(DR/EC) Active 40 mg PO DAILY January 05, 2023 12:00am Comment on above: TAKE ONE CAPSULE BY MOUTH ONCE DAILY ON AN EMPTY STOMACH oxyCODONE hydrochloride 5 mg oral tablet (20 sources) Opioid Agonist Start: 12-05-2024 take 1 tablet by mouth three times daily as needed for pain Oxycodone 5 mg tablet Active 5 mg PO THREE TIMES A DAY as needed for pain December 05, 2024 12:00am Start: 05-15-2024 take 1 tablet by josephine th every four hours as needed oxyCODONE IR (ROXICODONE) 5 mg immediate release tablet TAKE ONE-HALF TO ONE TABLET BY MOUTH EVERY 4 HOURS NEEDED FOR PAIN 05/15/2024 Active Start: 01-05-2023 End: 01-11-2023 take 1 tablet by mouth every six hours as needed for pain Oxycodone 5 mg tablet Discontinued 5 mg PO EVERY 6 HOURS as needed for Pain (Scale Score 6-10) January 05, 2023 12:00am January 11, 2023 8:49pm torsemide 20 mg oral tablet (20 sources) Loop Diuretic Start: 10-10-2023 End: 12-02-2024 take 1 tablet by mouth twice daily torsemide (DEMADEX) 20 mg tablet Take 1 tablet by mouth two times a day. . 180 tablet 1 12/02/2024 Active Start: 08-17-2023 take 1 tablet by josephine th once daily Torsemide 20 mg tablet Active 20 mg PO DAILY August 17, 2023 4:24pm Start: 06-12-2023 take 1 tablet by josephine th twice daily torsemide (DEMADEX) 20 mg tablet Take 1 tablet by mouth twice daily. . 180 tablet 1 06/12/2023 Active Start: 05-01-2023 End: 08-17-2023 Torsemide 20 mg tablet Disco ntinued 30 mg PO TWICE A DAY May 01, 2023 12:00am August 17, 2023 4:25pm Start: 05-01-2023 End: 08-17-2023 take 30 mg by mouth twice daily Torsemide Discontinued 30 MG PO TWICE A DAY April 30, 2023 11:00pm August 17, 2023 3:25pm Start: 03-30-2023 take 1 tablet by josephine th twice daily torsemide (DEMADEX) 20 mg tablet Take 1 tablet by mouth twice daily. . 90 tablet 1 03/30/2023 Active Start: 02-24-2023 End: 03-30-2023 take 1.5 tablets by mouth twice daily torsemide (DEMADEX) 20 mg tablet Take 1.5 tablets by mouth twice daily. . 90 tablet 1 03/06/2023 03/30/2023 Discontinued Start: 02-17-2023 take 1.5 tablets by mouth twice daily torsemide (DEMADEX) 20 mg tablet Take 1.5 tablets by mouth twice daily. Take with one 5 mg twice a day for total of 15 mg twice a day. 45 tablet 1 02/17/2023 Active Start: 01-05-2023 End: 01-11-2023 take 1 tablet by mouth once daily Torsemide 10 mg tablet Discontinued 10 mg PO DAILY January 05, 2023 12:00am January 11, 2023 8:50pm Start: 11-03-2022 End: 02-17-2023 take 1 tablet by mouth once daily torsemide (DEMADEX) 5 mg tablet Take 1 tablet by mouth once daily. Take with one 10 mg twice a day for total of 15 mg twice a day. 60 tablet 5 11/03/2022 02/17/2023 Discontinued Start: 09-30-2022 End: 02-17-2023 take 1 tablet by mouth twice daily torsemide (DEMADEX) 10 mg tablet Take 1 tablet by mouth twice daily. 60 tablet 1 09/30/2022 11/03/2022 Discontinued Comment on above: Take 1 tablet by josephine th twice daily. Take 1 tablet by josephine th twice daily. Take with one 5 mg twice a day for total of 15 mg twice a day. Take 1 tablet by josephine th once daily. Take with one 10 mg twice a day for total of 15 mg twice a day. Take 1.5 tablets by mouth twice daily. Take with one 5 mg twice a day for total of 15 mg twice a day. Take 1.5 tablets by mouth twice daily. . Take 1 tablet by josephine th twice daily. . Take 1 tablet by josephine th two times a day. . vitamin b12 1 mg oral capsule (20 sources) Vitamin B12 Start: 01-05-2023 take 1 capsule by mouth once daily Cyanocobalamin (Vitamin B-12) 1,000 mcg Capsule Active 1000 ug PO DAILY January 05, 2023 12:00am Start: 05-10-2021 take 1 tablet by josephine th once daily cyanocobalamin (VITAMIN B-12) 1,000 mcg tab Take 1 tablet by mouth once daily. 05/10/2021 Active Comment on above: Take 1 tablet by josephine th once daily. Completed/Discontinued Medications Medication Drug Class(es) Dates Sig (Normalized) Sig (Original) acetaminophen 325 mg / HYDROcodone bitartrate 5 mg oral tablet (20 sources) Opioid Agonist Start: 10-11-2017 End: 10-18-2017 Hydrocodone-Acetami nophen 1 TABLET tablet Discontinued 1 - 2 {tbl} PO EVERY 6 HOURS as needed for Pain 56 7 October 11, 2017 October 17, 2017 1:00am October 18, 2017 1:05am Start: 10-11-2017 End: 10-18-2017 take 1 tablet by mouth every six hours Hydrocodone-Acetaminophen Discontinued 1 - 2 TABLET PO EVERY 6 HOURS 56 7 October 11, 2017 October 18, 2017 12:05am Start: 10-07-2017 End: 10-11-2017 Hydrocodone-Acetaminophen 1 TABLET tablet Discontinued 1 - 2 {tbl} PO EVERY 4 HOURS NEEDED as needed for Pain October 07, 2017 1:00am October 11, 2017 10:25am Start: 10-07-2017 End: 10-11-2017 take 1 tablet by mouth every four hours as needed Hydrocodone-Acetaminophen Discontinued 1 - 2 TABLET PO EVERY 4 HOURS NEEDED October 07, 2017 12:00am October 11, 2017 9:25am acetaminophen 325 mg / oxyCODONE hydrochloride 5 mg oral tablet (2 sources) Opioid Agonist Start: 08-08-2024 End: 12-05-2024 Oxycodone-Acetaminophen 5-325 mg tablet Discontinued 1 {tbl} PO THREE TIMES A DAY as needed August 08, 2024 1:00am December 05, 2024 10:45am [id number] 200 actuat albuterol 0.09 mg/actuat metered dose inhaler (20 sources) beta2-Adrenerg ic Agonist Start: 07-12-2023 End: 04-16-2024 take 2 puff(s) by inhalation every six hours as needed for wheezing albuterol HFA (PROVENTIL HFA, VENTOLIN HFA) 90 mcg/actuation inhaler Inhale 2 Puffs as instructed every 6 hours as needed for wheezing/shortness of breath. 1 Each 5 07/12/2023 04/16/2024 Discontinued Comment on above: Inhale 2 Puffs as in structed every 6 hours as needed for wheezing/shortness of breath. apixaban 5 mg oral tablet (20 sources) Factor Xa Inhibitor Start: 02-24-2023 End: 03-06-2024 take 1 tablet by mouth twice daily Apixaban (Eliquis) 5 mg tablet Discontinued 5 mg PO TWICE A DAY May 01, 2023 12:00am March 06, 2024 9:05am Start: 02-17-2023 take 1 tablet by [facility] twice daily apixaban (ELIQUIS) 5 mg tab(s) Take 1 tablet by mouth twice daily. 0 02/17/2023 Active Start: 02-17-2023 End: 05-01-2023 take 2 tablets by mouth twice daily, then take 1 tablet by mouth twice daily Apixaban (Eliquis Dvt-Pe Treat 30d Start) 5 mg (74 tabs) tablets,dose pack Discontinued 5 mg PO TWICE A DAY February 17, 2023 12:00am May 01, 2023 11:14am Take 10 mg twice a day for 1 week, then take 5 mg twice a day Comment on above: Take 1 tablet by [facility] twice daily. cefadroxil 500 mg oral capsule (4 sources) Cephalosporin Antibacterial Start: End: take 1 capsule by mouth twice daily cefADROxil (DURICEF) 500 mg capsule Take 1 capsule by mouth twice daily. 20 capsule 0 06/12/2023 07/12/2023 Discontinued (Course of therapy completed) Comment on above: Take 1 capsule by [facility] twice daily. celecoxib 200 mg oral capsule (20 sources) Nonsteroidal Anti-inflammatory Drug Start: End: take 1 capsule by mouth twice daily Celecoxib 200 mg capsule Discontinued 200 mg PO TWICE A DAY May 02, 2023 9:31am August 17, 2023 4:25pm Comment on above: Take 1 capsule by [facility] twice daily. docusate sodium 100 mg oral capsule (8 sources) Start: End: take 1 capsule by mouth twice daily as needed for constipation Docusate Sodium (Colace) 100 mg Capsule Discontinued 100 mg PO TWICE A DAY as needed for Constipation January 05, 2023 12:00am January 11, 2023 8:48pm 0.4 ml enoxaparin sodium 100 mg/ml prefilled syringe (20 sources) Low Molecular Weight Heparin Start: inject 0.4 mL by subcutaneous injection once daily enoxaparin (LOVENOX) 40 mg/0.4 mL Inject 0.4 mL subcutaneously once daily. The two days prior to your injection by Dr. Scherer 2 Each 0 05/01/2023 Active Comment on above: Inject 0.4 mL subcut aneously once daily. The two days prior to your injection by Dr. Scherer fluticasone propionate 0.05 mg/actuat metered dose nasal spray (20 sources) Corticosteroid Start: 023 take 1 spray(s) by mouth twice daily fluticasone (FLONASE) 50 mcg/actuation nasal spray Use 1 [place] in each nostril twice daily. Rinse mouth after use. 1 Each 1 06/12/2023 Active Start: 09-07-2021 End: 12-24-2022 fluticasone (FLONASE) 50 mcg /actuation nasal spray One spray each nostril before bed. 1 Each 5 09/07/2021 12/24/2022 Discontinued (Discontinued by Patient) Comment on above: One spray each nostr il before bed. Use 1 [place] in each nostril twice daily. Rinse mouth after use. 60 actuat formoterol fumarate 0.005 mg/actuat / mometasone furoate 0.1 mg/actuat metered dose inhaler (20 sources) Corticosteroid, beta2-Adrenergic Agonist Start: 1 End: 3 take 2 puff(s) by inhalation twice daily mometasone-formotero l (DULERA) 100-5 mcg/actuation inhaler Indications: 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HCC) Inhale 2 Puffs as instructed twice daily. 17.6 g 2 07/22/2021 10/28/2022 Discontinued Comment on above: Inhale 2 Puffs as in structed twice daily. furosemide 40 mg oral tablet (20 sources) Loop Diuretic Start: 3 End: 3 take 1 tablet by mouth once daily Furosemide 40 mg tablet Discontinued 40 mg PO DAILY January 05, 2023 12:00am January 11, 2023 8:48pm Start: 07-08-2021 End: 09-30-2022 take 1 tablet by mouth twice daily furosemide (LASIX) 40 mg tablet Take 1 tablet by mouth twice daily. 180 tablet 1 06/08/2022 09/30/2022 Discontinued (Changing Therapy/Dosage Form) Comment on above: Take 1 tablet by josephine twice daily. gabapentin 300 mg oral capsule (8 sources) Anti-epileptic Agent Start: 2022 End: 2022 take 1 capsule by mouth twice daily Gabapentin 300 mg capsule Discontinued 300 mg PO TWICE A DAY January 05, 2023 12:00am May 02, 2023 9:32am hydroxychloroquine sulfate 200 mg oral tablet (20 sources) Antimalarial, Antirheumatic Agent Start: 2022 End: 2022 take 1 tablet by mouth once daily Hydroxychloroquine 200 mg tablet Discontinued 200 mg PO DAILY January 05, 2023 12:00am January 11, 2023 8:48pm End: 07-04-2022 take 1 tablet by mouth once daily hydrOXYchloroQUINE (PLAQUENIL) 200 mg tablet Take 200 mg by mouth once daily. 0 07/04/2022 Discontinued Comment on above: Take 200 mg by mouth once daily. leflunomide 10 mg oral tablet (20 sources) Antirheumatic Agent Start: End: take 1 tablet by mouth once daily Leflunomide 10 mg tablet Discontinued 10 mg PO DAILY May 02, 2023 9:32am August 08, 2024 2:06pm Start: 11-05-2019 End: 10-28-2022 take 1 tablet by mouth once daily leflunomide (ARAVA) 10 mg tablet Take 1 tablet by mouth once daily. Prescribed by Dr. Oliva 11/05/2019 10/28/2022 Discontinued Comment on above: Take 1 tablet by [facility] once daily. Prescribed by Dr. Oliva Magnesium (8 sources) Start: 10-27-2023 End: 01-03-2024 Magnesium 250 mg tab Take 500mg in mornings and 250mg in evenings. 0 10/27/2023 01/03/2024 Discontinued Start: 10-27-2023 Magnesium 250 mg tab Take 500mg in mornings and 250mg in evenings. 0 10/27/2023 Active Comment on above: Take 500mg in mornin gs and 250mg in evenings. magnesium chloride 598 mg delayed release oral tablet (20 sources) Start: 03-08-2021 End: 08-08-2024 take 2 tablets by mouth twice daily Magnesium Chloride (Slow-Mag) 71.5 mg tablet,delayed release (DR/EC) Discontinued 143 mg PO TWICE A DAY May 01, 2023 12:00am August 08, 2024 2:07pm Comment on above: Take 2 tablets by mo uth twice daily. take 2 tablets by mo uth twice a day Take 2 tablets by mo uth two times a day. Mometasone-Formoter ol (Dulera) 200-5 mcg/actuation Hfa Aerosol Inhaler (8 sources) Start: 01-05-2023 End: 05-01-2023 Mometasone-Formoterol (Dulera) 200-5 mcg/actuation Hfa Aerosol Inhaler Discontinued 2 NMA INHALATION TWICE A DAY January 05, 2023 12:00am May 01, 2023 11:20am Start: 01-05-2023 End: 05-01-2023 take 1 puff(s) by inhalation twice daily Mometasone-Formoterol (Dulera) 200-5 mcg/actuation Hfa Aerosol Inhaler Discontinued 2 PUFF INHALATION TWICE A DAY January 04, 2023 11:00pm May 01, 2023 10:20am Start: 01-05-2023 End: 05-01-2023 take 1 puff(s) by inhalation twice daily Mometasone-Formoterol (Dulera) 200-5 mcg/actuation Hfa Aerosol Inhaler Discontinued 2 PUFF INHALATION TWICE A DAY January 05, 2023 12:00am May 01, 2023 11:20am Start: 01-05-2023 take 1 puff(s) by in halation twice daily Mometasone-Formoterol (Dulera) 200-5 mcg/actuation Hfa Aerosol Inhaler Active 2 PUFF INHALATION TWICE A DAY January 05, 2023 12:00am Multivitamin With Minerals (6 sources) Start: 01-05-2023 End: 05-02-2023 take 1 tablet by mouth once daily Multivitamin With Minerals Discontinued 1 TABLET PO DAILY January 04, 2023 11:00pm May 02, 2023 8:33am Start: 01-05-2023 End: 05-02-2023 take 1 tablet by mouth once daily Multivitamin With Minerals Discontinued 1 TABLET PO DAILY January 05, 2023 12:00am May 02, 2023 9:33am Start: 01-05-2023 take 1 tablet by josephine th once daily Multivitamin With Minerals Active 1 TABLET PO DAILY January 05, 2023 12:00am Multivitamin With Minerals Tablet (2 sources) Start: 01-05-2023 End: 05-02-2023 Multivitamin With Minerals Tablet Discontinued 1 {tbl} PO DAILY January 05, 2023 12:00am May 02, 2023 9:33am perflutren lipid microsphere s 1.3 mL in NaCl (PF) 0.9% 10 mL injection (DEFINITY) (20 sources) Start: 01-20-2022 End: 04-21-2023 perflutren lipid microsphere s 1.3 mL in NaCl (PF) 0.9% 10 mL injection (DEFINITY) Start: 07-22-2021 End: 10-21-2022 perflutren lipid microsphere s 1.3 mL in NaCl (PF) 0.9% 10 mL injection (DEFINITY) predniSONE 10 mg oral tablet (20 sources) Start: 12-29-2021 End: 07-04-2022 take 1 tablet by mouth once daily as needed for pain predniSONE (DELTASONE) 10 mg tablet Take 1 tablet by mouth once daily as needed for pain. 0 12/29/2021 07/04/2022 Discontinued (Course of therapy completed) Comment on above: Take 1 tablet by josephine once daily as needed for pain. 125 ml sodium chloride 9 mg/ml prefilled syringe (20 sources) Start: 07-22-2021 End: 04-21-2023 sodium chloride 0.9 % (flush) 10 mL (BD POSIFLUSH) spironolactone 25 mg oral tablet (8 sources) Aldosterone Antagonist Start: 01-05-2023 End: 05-02-2023 take 1 tablet by mouth once daily Spironolactone 25 mg Tablet Discontinued 25 mg PO DAILY January 05, 2023 12:00am May 02, 2023 9:33am tadalafil 20 mg oral tablet (20 sources) Phosphodiesterase 5 Inhibitor Start: 07-04-2022 End: 04-16-2024 take 1 tablet by mouth once as needed Tadalafil 20 mg tablet Discontinued 20 mg PO ONE TIME as needed for Erectile Dysfunction January 05, 2023 12:00am March 06, 2024 9:07am Comment on above: Take 1 tablet by josephine th once daily. As needed terbinafine 250 mg oral tablet (20 sources) Allylamine Antifungal Start: 10-07-2021 End: 03-06-2024 take 1 tablet by mouth once daily Terbinafine Hcl 250 mg Tablet Discontinued 250 mg PO DAILY January 05, 2023 12:00am March 06, 2024 9:07am Comment on above: Take 1 tablet by josephine th once daily. urea 400 mg/ml topical cream (20 sources) Start: 10-07-2021 End: 10-07-2022 urea (CARMOL) 40 % Apply to affected area once daily. 198 g 11 10/07/2021 10/07/2022 Comment on above: Apply to affected ar ea once daily. WALKER ROLLATOR SEAT WITH 6 WHEELS - RED (13 sources) Start: 12-16-2022 End: 02-19-2023 WALKER ROLLATOR SEAT WITH 6 WHEELS - RED Indications: Spinal stenosis, lumbar region, without neurogenic claudication , Weakness of both lower extremities , Increased weakness when ambulating , At high risk for falls Dx: M48.061, R29.898, R53.1 and Z91.81 1 Each 0 12/16/2022 02/19/2023 Discontinued Start: 12-16-2022 WALKER ROLLATO R SEAT WITH 6 WHEELS - RED Indications: Spinal stenosis, lumbar region, without neurogenic claudication , Weakness of both lower extremities , Increased weakness when ambulating , At high risk for falls Dx: M48.061, R29.898, R53.1 and Z91.81 1 Each 0 12/16/2022 Active Comment on above: Dx: M48.061, R29.898 , R53.1 and Z91.81 Problems Active Problems Problem Classification Problem Date Documented Da te Episodic/Chronic Acute bronchitis (1 source) Acute bronchitis; Translations: [Acute bronchitis, unspecified] Episodic Aortic; peripheral; and visceral artery aneurysms (20 sources) Aortic root dilatation; Translations: [Thoracic aortic ectasia] Onset: 3 06-04-2023 Chronic Cardiac dysrhythmias (20 sources) Irregular heart beat; Translations: [Cardiac arrhythmia, unspecified] Onset: 3 Chronic Chronic kidney disease (20 sources) Chronic kidney disease stage 3A ; Translations: [Chronic renal failure, stage 3a (HCC)] Onset: 3 Resolved: 4 03-30-2023 Chronic Chronic obstructive pulmonary disease and bronchiectasis (20 sources) Chronic obstructive lung disease; Translations: [Chronic obstructive pulmonary disease, unspecified] Onset: 5 Resolved: 7 10-06-2021 Chronic Congestive heart failure; nonhypertensive (20 sources) Acute on chronic systolic heart failure; Translations: [Acute on chronic systolic (congestive) heart failure] Onset: 0 Resolved: 0 11-25-2019 Chronic Deficiency and other anemia (20 sources) Acquired pancytopenia; Translations: [Antineoplastic chemotherapy induced pancytopenia] Onset: 8 10-06-2021 Chronic Deficiency and other anemia (1 source) Antineoplastic chemotherapy induced pancytopenia; Translations: [Pancytopenia due to chemotherapy ([facility])] Onset: 2 Chronic Deficiency and other anemia (1 source) Iron deficiency anemia; Translations: [Iron deficiency anemia, unspecified] 05-27-2024 Episodic Diabetes mellitus with complications (20 sources) Type 2 diabetes mellitus; Translations: [Type 2 diabetes mellitus with diabetic chronic kidney disease] Onset: 8 03-30-2023 Chronic Diabetes mellitus without complication (20 sources) Type 2 diabetes mellitus without complication; Translations: [Type 2 diabetes mellitus without complications] Onset: 8 Resolved: 8 03-15-2021 Chronic Diabetes mellitus without complication (1 source) Diabetes mellitus without complication; Translations: [Type 2 diabetes mellitus with stage 3a chronic kidney disease, without long-term current use of insulin ([facility])] Onset: 5 Disorders of lipid metabolism (20 sources) Mixed hyperlipidemia; Translations: [Mixed hyperlipidemia] Onset: 7 10-06-2021 Chronic Esophageal disorders (20 sources) Gastroesophageal reflux disease; Translations: [Gastro-esophageal reflux disease without esophagitis] Onset: 2 10-06-2021 Chronic Essential hypertension (20 sources) Essential hypertension; Translations: [Essential (primary) hypertension] Onset: 8 10-06-2021 Chronic Comment on above: CONTROLLED ON MED Gout and other crystal arthropathies (3 sources) Calcium pyrophosphate deposition disease; Translations: [Other chondrocalcinosis, unspecified site] Onset: 4 05-27-2024 Chronic Hypertension with complications and secondary hypertension (5 sources) Hypertensive heart disease; Translations: [Hypertensive heart disease without heart failure] Onset: 5 03-06-2024 Chronic Immunizations and screening for infectious disease (1 source) Needs influenza immunization; Translations: [Encounter for immunization] 07-12-2023 Episodic Malaise and fatigue (20 sources) Weakness present; Translations: [Weakness] Onset: 3 12-16-2022 Episodic Comment on above: INHALER USED Multiple myeloma (20 sources) Multiple myeloma; Translations: [Multiple myeloma not having achieved remission] Onset: 8 10-06-2021 Chronic Mycoses (2 sources) Onychomycosis; Translations: [Tinea unguium] 07-02-2024 Episodic Neoplasms of unspecified nature or uncertain behavior (10 sources) Neoplasm of bone; Translations: [Neoplasm of unspecified behavior of bone, soft tissue, and skin] 10-11-2017 Episodic Non-Hodgkin`s lymphoma (11 sources) History of multiple myeloma; Translations: [Personal history of other malignant neoplasms of lymphoid, hematopoietic and related tissues] 01-05-2023 Episodic Nutritional deficiencies (20 sources) Vitamin D deficiency; Translations: [Vitamin D deficiency, unspecified] Onset: 5 Chronic Occlusion or stenosis of precerebral arteries (20 sources) Bilateral stenosis of carotid arteries; Translations: [Occlusion and stenosis of bilateral carotid arteries] Onset: 4 05-29-2024 Chronic Osteoarthritis (11 sources) Osteoarthritis; Translations: [Unspecified osteoarthritis, unspecified site] 01-05-2023 Chronic Other acquired deformities (6 sources) Scoliosis of lumbar spine; Translations: [Scoliosis, unspecified] 12-06-2024 Chronic Other acquired deformities (7 sources) Acquired kyphosis; Translations: [Unspecified kyphosis, thoracolumbar region] 12-06-2024 Chronic Other acquired deformities (1 source) Other secondary kyphosis, thoracolumbar region; Translations: [Other secondary kyphosis, thoracolumbar region] Onset: 5 Chronic Other and ill-defined heart disease (20 sources) Left atrial enlargement; Translations: [Cardiomegaly] Onset: 3 06-04-2023 Chronic Other connective tissue disease (6 sources) Ganglion cyst; Translations: [Ganglion, unspecified site] Episodic Other connective tissue disease (2 sources) Dupuytren's contracture; Translations: [Palmar fascial fibromatosis [Dupuytren]] Episodic Other connective tissue disease (2 sources) Pain in finger of right hand; Translations: [Pain in right finger(s)] Episodic Other connective tissue disease (4 sources) Pain of left hand; Translations: [Pain in left hand] Episodic Other connective tissue disease (1 source) Dupuytren's disease of palm; Translations: [Palmar fascial fibromatosis [Dupuytren]] Episodic Other connective tissue disease (2 sources) Swelling of hand; Translations: [Other specified soft tissue disorders] Episodic Other connective tissue disease (1 source) Muscle spasm of cervical muscle of neck; Translations: [Other muscle spasm] 04-16-2024 Episodic Other connective tissue disease (1 source) Pain of toe of left foot; Translations: [Pain in left toe(s)] 12-21-2024 Episodic Other connective tissue disease (1 source) Pain of toe of right foot; Translations: [Pain in right toe(s)] 12-21-2024 Episodic Other connective tissue disease (6 sources) History of lumbar fusion; Translations: [Arthrodesis status] 12-06-2024 Episodic Other connective tissue disease (2 sources) Arthrodesis status; Translations: [Arthrodesis status] Onset: 5 Episodic Other fractures (7 sources) Fracture of twelfth thoracic vertebra; Translations: [Wedge compression fracture of T11-T12 vertebra, initial encounter for closed fracture] 12-06-2024 Episodic Other fractures (1 source) Wedge compression fracture of T11-T12 vertebra, sequela; Translations: [Wedge compression fracture of T11-T12 vertebra, sequela] Onset: 5 Episodic Other hereditary and degenerative nervous system conditions (20 sources) Disorder of peripheral autonomic nervous system; Translations: [Autonomic neuropathy in diseases classified elsewhere] Onset: 5 03-15-2021 Chronic Other hereditary and degenerative nervous system conditions (1 source) Autonomic neuropathy in diseases classified elsewhere; Translations: [Peripheral autonomic neuropathy in disorders classified elsewhere] Onset: 1 Chronic Other lower respiratory disease (2 sources) Cough; Translations: [Cough] Episodic Other male genital disorders (20 sources) Secondary erectile dysfunction; Translations: [Male erectile dysfunction, unspecified] Onset: 2 Chronic Other nutritional; endocrine; and metabolic disorders (20 sources) Obesity; Translations: [Obesity, unspecified] Onset: 3 03-15-2021 Chronic Other nutritional; endocrine; and metabolic disorders (20 sources) Hypomagnesemia; Translations: [Hypomagnesemia] Onset: 1 10-06-2021 Chronic Other nutritional; endocrine; and metabolic disorders (20 sources) Obese class I; Translations: [Obesity, unspecified] Onset: 3 Chronic Other nutritional; endocrine; and metabolic disorders (1 source) Obesity, unspecified; Translations: [Obesity, Class I, BMI 30-34.9] Onset: 3 Chronic Other nutritional; endocrine; and metabolic disorders (1 source) Hypomagnesemia; Translations: [Hypomagnesemia] Onset: 2 Chronic Other screening for suspected conditions (not mental disorders or infectious disease) (12 sources) Electrocardiogram abnormal; Translations: [Abnormal electrocardiogram [ECG] [EKG]] Onset: 3 05-02-2023 Episodic Other skin disorders (1 source) Callosity; Translations: [Corns and callosities] 07-02-2024 Episodic Other upper respiratory disease (20 sources) Allergic rhinitis; Translations: [Allergic rhinitis, unspecified] Onset: 1 10-06-2021 Chronic Other upper respiratory infections (2 sources) Posterior rhinorrhea; Translations: [Postnasal drip] Episodic Otitis media and related conditions (1 source) Dysfunction of left eustachian tube; Translations: [Unspecified Eustachian tube disorder, left ear] 06-12-2023 Episodic Peripheral and visceral atherosclerosis (3 sources) Peripheral vascular disease, unspecified; Translations: [Peripheral vascular disease, unspecified] Onset: 4 07-02-2024 Chronic Phlebitis; thrombophlebitis and thromboembolism (20 sources) Deep venous thrombosis; Translations: [Acute embolism and thrombosis of unspecified deep veins of unspecified lower extremity] Onset: 8 Resolved: 0 02-17-2023 Episodic Pulmonary heart disease (20 sources) Pulmonary hypertension; Translations: [Pulmonary hypertension, unspecified] Onset: 0 03-15-2021 Chronic Residual codes; unclassified (20 sources) H/O: tissue/organ recipient; Translations: [Stem cells transplant status] Onset: 8 06-27-2018 Chronic Residual codes; unclassified (2 sources) Stem cells transplant status; Translations: [H/O autologous stem cell transplant (HCC)] Onset: Chronic Residual codes; unclassified (20 sources) Bilateral lower limb edema; Translations: [Localized edema] Onset: 8 Resolved: 8 09-30-2022 Episodic Retinal detachments; defects; vascular occlusion; and retinopathy (1 source) Epiretinal membrane of left eye; Translations: [Puckering of macula, left eye] 01-03-2024 Chronic Rheumatoid arthritis and related disease (20 sources) Inflammatory polyarthropathy; Translations: [Inflammatory polyarthropathy] Onset: 0 03-15-2021 Chronic Spondylosis; intervertebral disc disorders; other back problems (10 sources) Post-surgery back pain; Translations: [Postlaminectomy syndrome, not elsewhere classified] Onset: 5 12-06-2024 Chronic Spondylosis; intervertebral disc disorders; other back problems (20 sources) Spinal stenosis of lumbar region; Translations: [Spinal stenosis, lumbar region without neurogenic claudication] Onset: 7 03-15-2021 Episodic Unclassified (1 source) Obesity, Class I, BMI 30-34.9; Translations: [Obesity, Class I, BMI 30-34.9] Onset: 3 Unclassified (1 source) 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); Translations: [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)] Onset: 3 Unclassified (1 source) Low back pain, unspecified; Translations: [Low back pain, unspecified] Onset: Past or Other Problems Problem Classification Problem Date Documented Date Episodic/Chronic Acute and unspecified renal failure (20 sources) Acute renal failure syndrome; Translations: [Acute kidney failure, unspecified] Onset: 06-16-2018 Resolved: 06-18-2018 06-24-2018 Episodic Administrative/socia l admission (20 sources) Advance directive discussed with patient; Translations: [Other specified counseling] Onset: 09-30-2022 09-30-2022 Episodic Conditions associated with dizziness or vertigo (3 sources) Vertigo; Translations: [Dizziness and giddiness] Onset: 05-29-2024 04-16-2024 Episodic Deficiency and other anemia (1 source) Iron deficiency anemia, unspecified; Translations: [Iron deficiency anemia, unspecified iron deficiency anemia type] Onset: 05-27-2024 Episodic E Codes: Adverse effects of medical drugs (1 source) Adverse effect of antineoplastic and immunosuppressive drugs, initial encounter; Translations: [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)] Onset: 09-30-2022 Episodic E Codes: Fall (20 sources) Fall; Translations: [Unspecified fall, initial encounter] Onset: 07-17-2018 Resolved: 11-25-2019 11-25-2019 Episodic Esophageal disorders (20 sources) Esophagitis; Translations: [Esophagitis, unspecified] Onset: 09-25-2012 Resolved: 01-06-2014 01-06-2014 Episodic Fluid and electrolyte disorders (20 sources) Hyperkalemia; Translations: [Hyperkalemia] Onset: 06-18-2018 Resolved: 2018 06-24-2018 Episodic Infective arthritis and osteomyelitis (except that caused by tuberculosis or sexually transmitted disease) (2 sources) Elbow pyogenic arthritis; Translations: [Pyogenic arthritis, unspecified] Onset: 05-27-2024 05-27-2024 Episodic Miscellaneous mental health disorders (20 sources) Acute insomnia; Translations: [Adjustment insomnia] Onset: 12-07-2017 Resolved: 06-26-2018 05-14-2018 Episodic Nausea and vomiting (20 sources) Chemotherapy-induced nausea and vomiting; Translations: [Nausea with vomiting, unspecified] Onset: 06-18-2018 Resolved: 07-02-2018 07-02-2018 Episodic Nonspecific chest pain (20 sources) Chest discomfort; Translations: [Other chest pain] Onset: 10-23-2019 Resolved: 11-25-2019 11-25-2019 Episodic Nutritional deficiencies (20 sources) Serum vitamin B12 low; Translations: [Deficiency of other specified B group vitamins] Onset: 04-22-2021 04-22-2021 Episodic Other aftercare (20 sources) Immunodeficiency secondary to chemotherapy ; Translations: [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] Onset: 06-13-2018 03-15-2021 Episodic Other aftercare (20 sources) Patient encounter status; Translations: [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 control 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] Onset: 09-06-2012 Resolved: 06-13-2018 03-15-2021 Episodic Other aftercare (2 sources) 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 control 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; Translations: [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)] Onset: 03-15-2021 Episodic Other connective tissue disease (20 sources) Paraparesis; Translations: [Other symptoms and signs involving the musculoskeletal system] Onset: 12-16-2022 12-16-2022 Episodic Other connective tissue disease (20 sources) Other symptoms and signs involving the musculoskeletal system; Translations: [Other musculoskeletal symptoms referable to limbs] Onset: 12-16-2022 12-16-2022 Episodic Other diseases of veins and lymphatics (20 sources) Peripheral venous insufficiency; Translations: [Venous insufficiency (chronic) (peripheral)] Onset: 01-06-2014 Resolved: 11-25-2019 11-25-2019 Episodic Other injuries and conditions due to external causes (20 sources) At high risk for fall; Translations: [History of falling] Onset: 12-16-2022 12-16-2022 Episodic Other lower respiratory disease (20 sources) Multiple nodules of lung; Translations: [Other nonspecific abnormal finding of lung field] Onset: 10-23-2019 10-25-2019 Episodic Other lower respiratory disease (20 sources) Dyspnea; Translations: [Shortness of breath] Onset: 10-22-2019 Resolved: 11-25-2019 11-25-2019 Episodic Other lower respiratory disease (20 sources) Wheezing; Translations: [Wheezing] Onset: 10-23-2019 Resolved: 11-25-2019 11-25-2019 Episodic Other male genital disorders (20 sources) Disorder of prostate; Translations: [Disorder of prostate, unspecified] Onset: 09-30-2022 09-30-2022 Episodic Other male genital disorders (1 source) Disorder of prostate, unspecified; Translations: [Prostate disorder] Onset: 09-30-2022 Episodic Other non-epithelial cancer of skin (20 sources) Malignant basal cell neoplasm of skin; Translations: [Basal cell carcinoma of skin, unspecified] Onset: 04-21-2021 10-06-2021 Episodic Other nutritional; endocrine; and metabolic disorders (20 sources) Obesity caused by energy imbalance; Translations: [Morbid (severe) obesity due to excess calories] Onset: 06-26-2017 Resolved: 11-25-2019 11-01-2023 Chronic Other skin disorders (20 sources) Nail discoloration; Translations: [Other nail disorders] Onset: 10-06-2021 10-06-2021 Episodic Other skin disorders (20 sources) Foot callus; Translations: [Corns and callosities] Onset: 10-06-2021 10-06-2021 Episodic Other skin disorders (1 source) Corns and callosities; Translations: [Foot callus] Onset: 09-30-2022 Episodic Residual codes; unclassified (20 sources) Active living will ; Translations: [Other specified health status] Onset: 09-30-2022 09-30-2022 Episodic Residual codes; unclassified (20 sources) Tobacco user; Translations: [Tobacco use] Onset: 12-27-2011 Resolved: 10-01-2012 Episodic Residual codes; unclassified (1 source) Localized edema; Translations: [Bilateral leg edema] Onset: 11-03-2022 Episodic Screening and history of mental health and substance abuse codes (20 sources) Ex-smoker; Translations: [Personal history of nicotine dependence] Onset: 03-15-2021 03-15-2021 Episodic Results Test Name Value Interpretation Reference Range Facility Orthopedic Visit Reporton Orthopedic Visit Report [facility] [address] [place] [address] [address] [place] [address] OFFICE VISIT Date of Service: 02/21/25 MR#: [id number] Acct: [id number] Name: RONNIE YARBROUGH Rep #: [id number] : 1950 Provider: Dr. Caio Gomez MD Age/Sex: 74/M Location: [facility] Status: Signed Intake Vital Signs 12/05/24 10:30 02/17/25 08:16 02/21/25 09:53 Height 5 ft 9 in 5 ft 9 in 5 ft 9 in Weight: 214 lb 214 lb BMI 31.6 31.6 BP 101/57 L Blood Pressure Location Lt brachial Position Sitting Respiration 18 Pulse 66 Pulse Source Palpation Intake Visit Reasons: back pain Chief Complaint: Pre op Accompanied by: Is patient in pain?: Yes Pain scale (1-10): 9 Allergies No Known Allergies Allergy (Verified 02/21/25 09:58) Medications ???Medication ???Instructions ???Recorded ???Confirmed ???Type aspirin 81 mg tablet,delayed 81 mg PO DAILY Heart 01/05/2303/12 History release calcium carb-ergocalciferol (vit 200 tab PO DAILY Supplment 3 02/21/25 History D2) 600 mg calcium-200 unit tablet cholecalciferol (vitamin D3) 50 50 mcg PO DAILY Supplement 3 02/21/25 History mcg (2,000 unit) tablet cyanocobalamin (vitamin B-12) 1,000 mcg PO DAILY Supplement 12/1802/21/25 History 1,000 mcg capsule losartan 25 mg tablet 12.5 mg PO DAILY BP 01/05/2302/21 History metformin 1,000 mg tablet 1,000 mg PO BID DM 01/05/23 History multivitamin 1 tab PO DAILY Supplement 01/05/23 02/21/25 History omeprazole 40 mg capsule,delayed 40 mg PO DAILY GERD 01/05/2302/21 History release dapagliflozin propanediol 10 mg 10 mg PO DAILY 05/02/23 02/21/25 H istory tablet (Farxiga) fluticasone fur. 100 mcg-umeclid 1 inh inhalation DAILY 05/02/23 History 62.5 mcg-vilant 25 mcg inhalat.powder (Trelegy Ellipta) torsemide 20 mg tablet 20 mg PO DAILY 08/17/23 02/21/25 H istory atorvastatin 40 mg tablet 40 mg PO QDAY 03/06/24 02/21/25 Hi story terbinafine HCl 250 mg tablet 250 mg PO DAILY Antifungal 4 02/21/25 History magnesium oxide 250 mg PO BID 08/08/24 02/21/25 Hi story oxycodone 5 mg tablet 5 mg PO TID PRN pain 12/05/2403/12 History carvedilol 12.5 mg tablet 12.5 mg PO BID #180 tabs 12/20/24 02/21/25 Rx dulaglutide 3 mg/0.5 mL 3 mg subcut QWEEK 02/04/25 5 History subcutaneous pen injector (Trulicity) Have you fallen in the past year?: No PFSH Medical History Pre-op testing Wears hearing aid Wears glasses Cancer Multiple myeloma History of steroid therapy Ambulates with cane High cholesterol Back pain Injury of back Injury of head and neck Gastric reflux Former smoker History of edema History of stress test History of echocardiogram History of Holter monitoring Cardiology follow-up encounter Joint infection of right wrist DVT of lower extremity, bilateral Abnormal ECG Paroxysmal atrial fibrillation Essential hypertension History of multiple myeloma GERD (gastroesophageal reflux disease) Rheumatoid arthritis Osteoarthritis Diabetes mellitus COPD (chronic obstructive pulmonary disease) Hyperlipidemia Debility Thoracic spinal stenosis Bone tumor Surgical History Hx of bilateral cataract extraction Hx of eye surgery History of total left knee replacement (TKR) ( 08/2023) History of tonsillectomy History of laminectomy History of carpal tunnel surgery of right wrist History of esophagogastroduodenoscopy History of colonoscopy History of bone marrow transplant History of total right knee replacement (TKR) History of reverse total replacement of right shoulder joint History of lumbar fusion Hx of fusion of cervical spine Family History Father Cancer, Onset Age: 52 Pancreatic cancer. Diabetes Sister Diabetes Grandmother Diabetes Social History household members: spouse Smoking Status: Former smoker quit date: 09/18/12 alcohol intake: current alcohol intake frequency: a few times a month substance use type: does not use caffeine: Yes Type: coffee Number of servings: 3 HPI back pain Details: This documentation accurately reflects the service provided and the decisions made by me, Dr. Caio Gomez MD 02/21/25 0953. Part of today???s visit was documented by Bella Daniel MA, acting as scribe. RONNIE YARBROUGH is a 74 year old M here today for pre op visit. Patient would like to discuss the surgery. He denies any recent injections or physical therapy. Patient does have a history of diabet (more content not included)... [facility] Hepatitis A AB, Totalon HEPATITIS A,TOT Negative Normal Negative [facility] Comment on above: Result Comment: Comm ent: The HAV total antibody assay detects both IgG and IgM but does not differentiate between them. A negative result suggests susceptibility to infection. A positive result could be due to vaccination, previously resolved infection or active infection. Testing for HAV IgM should be performed if active HAV infection is suspected. [facility] offers profiles that will automatically reflex positive HAV total antibody results to IgM (e.g., panel #[id number] HAV Antibody w/ Rfx). Performed at: [address] [id number] Mobile Application Architect: Zackary Mendoza PhD, Phone: [phone] Performed By: #### L 3890.6202, L501.9985, L100.0100, L3890.6006, L500.2500, L3890.6301, M100.651, L3100.0300 #### [facility] [address] [place], [address] MRSA/SAID NASAL SCREENon MRSA+SAID SCRN Reason for Exam: Ad[place] MRSA MRSA Negative S. AUREUS S. aureus Negative Normal [facility] Comment on above: Performed By: #### L 3890.6202, L501.9985, L100.0100, L3890.6006, L500.2500, L3890.6301, M100.651, L3100.0300 #### [facility] [address] [place], [address] Basic Metabolic Profile (BMP )on 02-17-2025 BUN/CRE 18.8 RATIO Normal 10-20 [facility] Comment on above: Performed By: #### L 3890.6202, L501.9985, L100.0100, L3890.6006, L500.2500, L3890.6301, M100.651, L3100.0300 #### [facility] [address] [place], [address] Calcium [Mass/Vol] 9.1 mg/dL Normal 7.6-11.0 [facility] Comment on above: Performed By: #### L 3890.6202, L501.9985, L100.0100, L3890.6006, L500.2500, L3890.6301, M100.651, L3100.0300 #### [facility] [address] [place], [address] Chloride [Moles/Vol] 102 mmol/L Normal 98-108 [facility] Comment on above: Performed By: #### L 3890.6202, L501.9985, L100.0100, L3890.6006, L500.2500, L3890.6301, M100.651, L3100.0300 #### [facility] [address] [place], [address] CO2 [Moles/Vol] 21.2 mmol/L Normal 21.0-32.0 [facility] Comment on above: Performed By: #### L 3890.6202, L501.9985, L100.0100, L3890.6006, L500.2500, L3890.6301, M100.651, L3100.0300 #### [facility] [address] [place], [address] Creatinine [Mass/Vol] 1.17 mg/dL Normal 0.70-1.20 [facility] Comment on above: Performed By: #### L 3890.6202, L501.9985, L100.0100, L3890.6006, L500.2500, L3890.6301, M100.651, L3100.0300 #### [facility] [address] [place], [address] GAP 14 Normal 5-15 [facility] Comment on above: Performed By: #### L 3890.6202, L501.9985, L100.0100, L3890.6006, L500.2500, L3890.6301, M100.651, L3100.0300 #### [facility] [address] [place], [address] GFR/1.73 sq M.predicted among non-blacks MDRD (S/P/Bld) [Vol rate/Area] 66 mL/min/{1.73_m2} Normal >60 [facility] Comment on above: Result Comment: mL/m in/1.73m2 CKD-EPI Creatinine Equation (2020) Performed By: #### L 3890.6202, L501.9985, L100.0100, L3890.6006, L500.2500, L3890.6301, M100.651, L3100.0300 #### [facility] [address] [place], [address] Glucose [Mass/Vol] 129 mg/dL High 70-99 [facility] Comment on above: Performed By: #### L 3890.6202, L501.9985, L100.0100, L3890.6006, L500.2500, L3890.6301, M100.651, L3100.0300 #### [facility] [address] [place], [address] Potassium [Moles/Vol] 4.4 mmol/L Normal 3.3-5.1 [facility] Comment on above: Performed By: #### L 3890.6202, L501.9985, L100.0100, L3890.6006, L500.2500, L3890.6301, M100.651, L3100.0300 #### [facility] [address] [place], [address] Sodium [Moles/Vol] 137 mmol/L Normal 133-145 [facility] Comment on above: Performed By: #### L 3890.6202, L501.9985, L100.0100, L3890.6006, L500.2500, L3890.6301, M100.651, L3100.0300 #### [facility] [address] [place], [address] Urea nitrogen [Mass/Vol] 22 mg/dL High 4-19 [facility] Comment on above: Performed By: #### L 3890.6202, L501.9985, L100.0100, L3890.6006, L500.2500, L3890.6301, M100.651, L3100.0300 #### [facility] [address] [place], [address] CBC W/Diff, Automatedon 06-0 2-2024 Absolute Lymph 0.96 X10 3/uL Normal 0.83-4.51 [facility] Comment on above: Performed By: #### L 3890.6202, L501.9985, L100.0100, L3890.6006, L500.2500, L3890.6301, M100.651, L3100.0300 #### [facility] [address] [place], [address] Absolute Neut 4.4 X10 3/uL Normal 2.0-7.7 [facility] Comment on above: Performed By: #### L 3890.6202, L501.9985, L100.0100, L3890.6006, L500.2500, L3890.6301, M100.651, L3100.0300 #### [facility] [address] [place], [address] Basophils/100 WBC (Bld) 0.3 % Normal 0-1 [facility] Comment on above: Performed By: #### L 3890.6202, L501.9985, L100.0100, L3890.6006, L500.2500, L3890.6301, M100.651, L3100.0300 #### [facility] [address] [place], [address] Eosinophils/100 WBC (Bld) 0.5 % Normal 0-5 [facility] Comment on above: Performed By: #### L 3890.6202, L501.9985, L100.0100, L3890.6006, L500.2500, L3890.6301, M100.651, L3100.0300 #### [facility] [address] [place], [address] Erythrocyte distribution width (RBC) [Ratio] 15.5 % High 11.6-14.6 [facility] Comment on above: Performed By: #### L 3890.6202, L501.9985, L100.0100, L3890.6006, L500.2500, L3890.6301, M100.651, L3100.0300 #### [facility] [address] [place], [address] Hematocrit (Bld) [Volume fraction] 44.3 % Normal 40-54 [facility] Comment on above: Performed By: #### L 3890.6202, L501.9985, L100.0100, L3890.6006, L500.2500, L3890.6301, M100.651, L3100.0300 #### [facility] [address] [place], [address] Hemoglobin (Bld) [Mass/Vol] 14.4 g/dL Normal 13.0-16.5 [facility] Comment on above: Performed By: #### L 3890.6202, L501.9985, L100.0100, L3890.6006, L500.2500, L3890.6301, M100.651, L3100.0300 #### [facility] [address] [place], [address] IG% 0.300 Normal 0.0-0.9 [facility] Comment on above: Result Comment: IG% - Immature Granulocytes (promyelocytes, myelocytes and metamyelocytes) > 1% indicates that a LEFT SHIFT is Present. Performed By: #### L 3890.6202, L501.9985, L100.0100, L3890.6006, L500.2500, L3890.6301, M100.651, L3100.0300 #### [facility] [address] [place], [address] Lymphocytes/100 WBC (Bld) 16.7 % Low 19-41 [facility] Comment on above: Performed By: #### L 3890.6202, L501.9985, L100.0100, L3890.6006, L500.2500, L3890.6301, M100.651, L3100.0300 #### [facility] [address] [place], [address] MCH (RBC) [Entitic mass] 28.2 pg Normal 27.0-32.0 [facility] Comment on above: Performed By: #### L 3890.6202, L501.9985, L100.0100, L3890.6006, L500.2500, L3890.6301, M100.651, L3100.0300 #### [facility] [address] [place], [address] MCHC (RBC) [Mass/Vol] 32.5 g/dL Normal 32-36 [facility] Comment on above: Performed By: #### L 3890.6202, L501.9985, L100.0100, L3890.6006, L500.2500, L3890.6301, M100.651, L3100.0300 #### [facility] [address] [place], [address] MCV (RBC) [Entitic vol] 86.7 fL Normal 80-94 [facility] Comment on above: Performed By: #### L 3890.6202, L501.9985, L100.0100, L3890.6006, L500.2500, L3890.6301, M100.651, L3100.0300 #### [facility] [address] [place], [address] Monocytes/100 WBC (Bld) 6.3 % Normal 0-10 [facility] Comment on above: Performed By: #### L 3890.6202, L501.9985, L100.0100, L3890.6006, L500.2500, L3890.6301, M100.651, L3100.0300 #### [facility] [address] [place], [address] Neutrophils/100 WBC (Bld) 75.9 % High 47-70 [facility] Comment on above: Performed By: #### L 3890.6202, L501.9985, L100.0100, L3890.6006, L500.2500, L3890.6301, M100.651, L3100.0300 #### [facility] [address] [place], [address] Nucleated RBC (Bld) [#/Vol] 0 10*3/uL Normal 0-5 [facility] Comment on above: Performed By: #### L 3890.6202, L501.9985, L100.0100, L3890.6006, L500.2500, L3890.6301, M100.651, L3100.0300 #### [facility] [address] [place], [address] Platelet mean volume (Bld) [Entitic vol] 10.1 fL Normal 6.2-12.0 [facility] Comment on above: Performed By: #### L 3890.6202, L501.9985, L100.0100, L3890.6006, L500.2500, L3890.6301, M100.651, L3100.0300 #### [facility] [address] [place], [address] Platelets (Bld) [#/Vol] 168 10*3/uL Normal 150-450 [facility] Comment on above: Performed By: #### L 3890.6202, L501.9985, L100.0100, L3890.6006, L500.2500, L3890.6301, M100.651, L3100.0300 #### [facility] [address] [place], [address] RBC (Bld) [#/Vol] 5.11 10*6/uL Normal 4.6-6.2 [facility] Comment on above: Performed By: #### L 3890.6202, L501.9985, L100.0100, L3890.6006, L500.2500, L3890.6301, M100.651, L3100.0300 #### [facility] [address] [place], [address] RDW SD 48.8 fl High 35.1-43.9 [facility] Comment on above: Performed By: #### L 3890.6202, L501.9985, L100.0100, L3890.6006, L500.2500, L3890.6301, M100.651, L3100.0300 #### [facility] [address] [place], [address] WBC (Bld) [#/Vol] 5.7 10*3/uL Normal 4.4-11.0 [facility] Comment on above: Performed By: #### L 3890.6202, L501.9985, L100.0100, L3890.6006, L500.2500, L3890.6301, M100.651, L3100.0300 #### [facility] [address] [place], [address] Cardiology Visit Reporton Cardiology Visit Report [facility] [address] [place] [address] OFFICE VISIT Date of Service: 02/17/25 MR#: [id number] Acct: [id number] Name: RONNIE YARBROUGH Rep #: [id number] : 1950 Provider: Dr. Patsy Gamble MD Age/Sex: 74/M [place] [facility] Status: Signed HPI HPI History of Present Illness Details: This gentleman with history of hypertension, hypertensive heart disease, dyslipidemia and rheumatoid arthritis is here for follow-up visit. Denies any chest pains either at rest or with exertion. No shortness of breath. Denies any palpitations. No orthopnea or PND. He has chronic lower extremity edema with history of DVTs. He wears compression stockings for those. Patient is being contemplated for back surgery. He is scheduled for a Lexiscan stress Myoview this month. Patient's functional status cannot be completely evaluated because of his debility on account of his rheumatoid arthritis and back pain. 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 Accompanied by: Is patient in pain?: No Allergies No Known Allergies Allergy (Verified 02/17/25 10:51) Medications ???Medication ???Instructions ???Recorded ???Confirmed ???Type aspirin 81 mg tablet,delayed 81 mg PO DAILY Heart 01/05/23 06/11/12 History release calcium carb-ergocalciferol (vit 200 tab PO DAILY Supplment 3 02/17/25 History D2) 600 mg calcium-200 unit tablet cholecalciferol (vitamin D3) 50 50 mcg PO DAILY Supplement 3 02/17/25 History mcg (2,000 unit) tablet cyanocobalamin (vitamin B-12) 1,000 mcg PO DAILY Supplement 12/1802/17/25 History 1,000 mcg capsule losartan 25 mg tablet 12.5 mg PO DAILY BP 01/05/2302/17 History metformin 1,000 mg tablet 1,000 mg PO BID DM 01/05/23 History multivitamin 1 tab PO DAILY Supplement 01/05/23 02/17/25 History omeprazole 40 mg capsule,delayed 40 mg PO DAILY GERD 01/05/2302/17 History release dapagliflozin propanediol 10 mg 10 mg PO DAILY 05/02/23 02/17/25 H istory tablet (Farxiga) fluticasone fur. 100 mcg-umeclid 1 inh inhalation DAILY 05/02/23 History 62.5 mcg-vilant 25 mcg inhalat.powder (Trelegy Ellipta) torsemide 20 mg tablet 20 mg PO DAILY 08/17/23 02/17/25 H istory atorvastatin 40 mg tablet 40 mg PO QDAY 03/06/24 02/17/25 Hi story terbinafine HCl 250 mg tablet 250 mg PO DAILY Antifungal 4 02/17/25 History magnesium oxide 250 mg PO BID 08/08/24 02/17/25 Hi story oxycodone 5 mg tablet 5 mg PO TID PRN pain 12/05/2411/12 History carvedilol 12.5 mg tablet 12.5 mg PO BID #180 tabs 12/20/24 02/17/25 Rx dulaglutide 3 mg/0.5 mL 3 mg subcut QWEEK 02/04/25 5 History subcutaneous pen injector (Trulicity) Ejection fraction %: 70 Have you fallen in the past year?: No PFSH Medical History Abnormal ECG Ambulates with cane Back pain Bone tumor Cancer Cardiology follow-up encounter COPD (chronic obstructive pulmonary disease) Debility Diabetes mellitus DVT of lower extremity, bilateral Essential hypertension Former smoker Gastric reflux GERD (gastroesophageal reflux disease) High cholesterol History of echocardiogram History of edema History of Holter monitoring History of multiple myeloma History of steroid therapy History of stress test Hyperlipidemia Injury of back Injury of head and neck Joint infection of right wrist Multiple myeloma Osteoarthritis Paroxysmal atrial fibrillation Pre-op testing Rheumatoid arthritis Thoracic spinal stenosis Wears glasses Wears hearing aid Surgical History History of bone marrow transplant History of carpal tunnel surgery of right wrist History of colonoscopy History of esophagogastroduodenoscopy History of laminectomy History of lumbar fusion History of reverse total replacement of right shoulder joint History of tonsillectomy History of total left knee replacement (TKR) ( 08/2023) History of total right knee replacement (TKR) Hx of bilateral cataract extraction Hx of eye surgery Hx of fusion of cervical spine Family History Father Cancer, Onset Age: 52 Pancreatic cancer. Diabetes Sister Diabetes Grandmother Diabetes Social History household members: spouse Smoking Status: Former smoker quit (more content not included)... [facility] 02-17-2025 HIV Non-Reactive Normal Nonreactive [facility] Comment on above: Result Comment: Non- Reactive Reactive Repeatedly reactive samples must be confirmed according to CDC recommended confirmatory algorithms. The subresults for either HIVAG or AHIV can be used as an aid in the selection of the confirmation algorithm for reactive samples. Send out specimens with Reactive results to [facility] for confirmation. Order the HIV antibody detection and differentiation: lc#[id number] Performed By: #### L 3890.6202, L501.9985, L100.0100, L3890.6006, L500.2500, L3890.6301, M100.651, L3100.0300 #### [facility] [address] [place], [address] Hemoglobin A1con 02-17-2025 HbA1c (Bld) [Mass fraction] 6.7 % High <=5.6 [facility] Comment on above: Result Comment: Norm al < 5.7 % Prediabetic 5.7 - 6.4 % Diabetic >or= 6.5 % Please note range changes. Performed By: #### L 3890.6202, L501.9985, L100.0100, L3890.6006, L500.2500, L3890.6301, M100.651, L3100.0300 #### [facility] [address] [place], [place], [id number] Hepatitis B Surface Antibody on 02-17-2025 HEP B Surf Ab Non-Reactive Normal [facility] Comment on above: Result Comment: <8.5 mIU/mL: Non-Reactive 8.5<= x <11.5 mIU/mL: Indeterminate >=11.5 mIU/mL: Reactive Non Reactive: Inconsistent with immunity less than <10 mIU/mL Reactive: Consistent with immunity greater than or equal to 10 mIU/mL Performed By: #### L 3890.6202, L501.9985, L100.0100, L3890.6006, L500.2500, L3890.6301, M100.651, L3100.0300 #### [facility] [address] [place], [place], [id number] Hepatitis C Antibodyon 02-17 Hepatitis C Ab Non-Reactive Normal Nonreactive [facility] Comment on above: Result Comment: Reac tive: Presumptive evidence of antibodies to HCV. Follow CDC recommendations for supplemental testing. Non-Reactive: Antibodies to HCV were not detected; does not exclude the possibility of exposure to HCV Reactive Results are presumptive evidence of antibodies to HCV. Follow CDC recommendations for supplemental testing. Order confirmation testing: HCV Quant by PCR testing - HCVPCR #[id number] Non Reactive: < 0.8 Equivocal: >/= 0.8 to < 1.0 Reactive: >/= 1.0 The CDC requires that a reactive/equivocal HCV antibody result be sent out for confirmation. HCV Quant by PCR testing. Performed By: #### L 3890.6202, L501.9985, L100.0100, L3890.6006, L500.2500, L3890.6301, M100.651, L3100.0300 #### [facility] [address] [place], [address] MR/PATKarina 02-17-2025 MR/PAT[facility] Medical Records Department [address] [place] [address] PAT - Anesthesia 02/17/25 1224 MR#: [id number] Acct: [id number] Name: RONNIE YARBROUGH Rep #: [id number] : 1950 74 From: Avila Do MD PCP: Dr. 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 When Was Last Pacemaker Check QUESTION #4 FULL TEXT: You/Your Family Experience fever (hyperthermia) with Anesthesia Last Oral Intake Last Oral intake: Last Oral Intake NPO since Meds taken in AM with sips of water? 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 Female No 02/04/25 09:31 HX of Motion Sickness No 02/04/25 09:31 HX of N/V After Surgery No 02/04/25 09:31 Non-Smoker Yes 02/04/25 09:31 Duration of Surgery greater Yes 02/04/25 09:31 than 60 minutes Number of Risk Factors 2 02/04/25 09:31 PONV Score Moderate Risk 02/04/25 09:31 Height Weight Height Weight: Anesthesia: Height Weight Height 5 ft 9 in 12/05/24 10:30 Respiratory Assessment Respiratory Assessment - housing court judge: Respiratory Tract Infection Hx - housing court judge Hx Respiratory Tract Infection No 02/04/25 09:31 STOP Sleep Apnea STOP Sleep Apnea - housing court judge: STOP Sleep Apnea - housing court judge Hx Hypertension Yes: CONTROLLED ON MED 02/04/25 09:31 Hx Sleep Apnea No 02/04/25 09:31 CPAP BIPAP Do you snore loudly (louder No 02/04/25 09:31 than talking or can be heard Do you often feel tired/ No 02/04/25 09:31 fatigued/ sleepy during daytime? Has anyone observed you stop No 02/04/25 09:31 breathing during sleep? STOP Results Negative 02/04/25 09:31 QUESTION #5 FULL TEXT : Do you snore loudly (louder than talking or can be heard through closed doors)? 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 Specify any problems Hx of Preganancy in last 3 N/A 02/04/25 09:31 Months Nurse Filling Out Transfusion VCHRISTIN 02/04/25 09:31 Questions: Date: 02/04/25 02/04/25 09:31 Time: 09:32 02/04/25 09:31 Patient unable to answer at this time (ie. confused, unrespo /Reproduction History /Reproductive History - housing court judge: /Reproductive Hx- housing court judge Hx Now No 02/04/25 09:31 Gestational Age (in weeks): EDC: Hx Hx Para Hx Section SAB No 02/04/25 09:31 [facility] Medical History Abnormal ECG Ambulates with cane Back pain Bone tumor Cancer Cardiology follow-up encounter COPD (chronic obstructive pulmonary disease) Debility Diabetes mellitus DVT of lower extremity, bilateral Essential hypertension Former smoker Gastric reflux GERD (gastroesophageal reflux disease) High cholesterol History of echocardiogram History of edema History of Holter monitoring History of multiple myeloma History of steroid therapy History of stress test Hyperlipidemia Injury of back Injury of head and neck Joint infection of right wrist Multiple myeloma Osteoarthritis Paroxysmal atrial fibrillation Pre-op testing Rheumatoid arthritis Thoracic spinal stenosis Wears glasses Wears hearing aid Home Medications ???Medication ???Instruc (more content not included)... Normal [facility] Magnesiumon 02-17-2025 Magnesium [Mass/Vol] 1.8 mg/dL Normal 1.5-2.2 [facility] Comment on above: Performed By: #### L 501.5200 #### [facility] [address] [place], [place], [address] Orthopedic Visit Reporton Orthopedic Visit Report [facility] [address] [place] [address] [address] [place] [address] OFFICE VISIT Date of Service: 01/02/25 MR#: [id number] Acct: [id number] Name: RONNIE YARBROUGH Rep #: [id number] : 1950 Provider: Dr. Caio Gomez MD Age/Sex: 74/M [place] [facility] [place]: Signed Intake Vital Signs 12/05/24 10:30 Height 5 ft 9 in Weight: 209 lb 8 oz BMI 30.9 Intake Visit Reasons: LUMBAR SPINE Allergies No Known Allergies Allergy (Unverified 01/02/25 15:47) Medications ???Medication ???Instructions ???Recorded ???Confirmed ???Type aspirin 81 mg tablet,delayed 81 mg PO DAILY Heart 01/05/2312/17 History release calcium carb-ergocalciferol (vit 200 tab PO DAILY Supplment 3 01/02/25 History D2) 600 mg calcium-200 unit tablet cholecalciferol (vitamin D3) 50 50 mcg PO DAILY Supplement 3 01/02/25 History mcg (2,000 unit) tablet cyanocobalamin (vitamin B-12) 1,000 mcg PO DAILY Supplement 12/1801/02/25 History 1,000 mcg capsule losartan 25 mg tablet 25 mg PO DAILY BP 01/05/23 5 History metformin 1,000 mg tablet 1,000 mg PO BID DM 01/05/23 History multivitamin 1 tab PO DAILY Supplement 01/05/23 01/02/25 History omeprazole 40 mg capsule,delayed 40 mg PO DAILY GERD 01/05/2301/02 History release dulaglutide 1.5 mg/0.5 mL 1.5 mg subcut QWEEK DM 05/01/23 History subcutaneous pen injector (Trulicity) dapagliflozin propanediol 10 mg 10 mg PO DAILY 05/02/23 01/02/25 H istory tablet (Farxiga) fluticasone fur. 100 mcg-umeclid 1 inh inhalation DAILY 05/02/23 History 62.5 mcg-vilant 25 mcg inhalat.powder (Trelegy Ellipta) torsemide 20 mg tablet 20 mg PO DAILY 08/17/23 01/02/25 H istory atorvastatin 40 mg tablet 40 mg PO QDAY 03/06/24 01/02/25 Hi story terbinafine HCl 250 mg tablet 250 mg PO DAILY Antifungal 4 01/02/25 History magnesium oxide 250 mg PO QDAY 08/08/24 01/02/25 H istory oxycodone 5 mg tablet 5 mg PO TID PRN pain 12/05/2412/17 History carvedilol 12.5 mg tablet 12.5 mg PO BID #180 tabs 12/20/24 01/02/25 Rx Have you fallen in the past year?: No PFSH Medical History Joint infection of right wrist DVT of lower extremity, bilateral Abnormal ECG Paroxysmal atrial fibrillation Essential hypertension History of multiple myeloma GERD (gastroesophageal reflux disease) Rheumatoid arthritis Osteoarthritis Diabetes mellitus COPD (chronic obstructive pulmonary disease) Hyperlipidemia Debility Thoracic spinal stenosis Bone tumor Surgical History Hx of bilateral cataract extraction Hx of eye surgery History of total left knee replacement (TKR) ( 08/2023) History of tonsillectomy History of laminectomy History of carpal tunnel surgery of right wrist History of esophagogastroduodenoscopy History of colonoscopy History of bone marrow transplant History of total right knee replacement (TKR) History of reverse total replacement of right shoulder joint History of lumbar fusion Hx of fusion of cervical spine Family History Father Cancer, Onset Age: 52 Pancreatic cancer. Diabetes Sister Diabetes Grandmother Diabetes Social History household members: spouse Smoking Status: Former smoker quit date: 09/18/12 alcohol intake: current alcohol intake frequency: a few times a month substance use type: does not use caffeine: Yes Type: coffee Number of servings: 3 HPI LUMBAR SPINE Details: This documentation accurately reflects the service provided and the decisions made by me, Dr. Caio Gomez MD 01/02/25 1512. Part of today???s visit was documented by Rhea FLANNERY, acting as scribe. RONNIE YRABROUGH is a 74 year old M here today for MRI review of the lumbar spine.Patient denies any changes. 12/05/24: RONNIE YARBROUGH is a 74 year old M NEW patient here today for low back pain. Patient was referred by Dr. Paul pain management. He states that he has been having pain for 15-20 years and it has progressively gotten worse over time. He states that he has had multiple injections and about [address] Paul tried to go in and give him an implant for a pain stimulator but states that it didn't work which was why he referred him to us. He states Dr. Paul was unable to get the leads in during the procedure.He has had 3-4 previous surgeries on his lower back that were done at [facility]. His last back surgery was about 3 years ago and he had an MRI after that surgery that showed compression and a fracture. He is unable to recall the exact dates and what surgerie (more content not included)... Normal [facility] MR Lumbar spine WO [facility] n 12-27-2024 * * *Final Report* * * DATE OF EXAM: Dec 27 2024 11:20AM [facility] [id number] - MRI LUMBAR SPINE WO IVCON / PROCEDURE REASON: lumbar /thoracic wo * * * * Physician Interpretation * * * * EXAMINATION: MRI THORACIC SPINE WO IVCON, MRI LUMBAR SPINE WO IVCON CLINICAL HISTORY: MID AND LOW BACK PAIN'; SPONDYLOSIS WITH MYELOPATHY (accession [id number]), TECHNIQUE: Routine lumbosacral and thoracic spine MR protocol without gadolinium. MQ: [id number] COMPARISON: CT chest 07/31/2023, CT abdomen pelvis 11/15/2017 RESULT: THORACIC: Counting reference: Craniocervical and lumbosacral junctions. For the purposes of this report, L4-5 is considered the level of the iliac crest and assume there are 5 lumbar-type vertebrae. Anatomic variant: None. Localizer images: Degenerative changes of the LEFT glenohumeral joint with joint effusion. Partially visualized C4-C5 anterior discectomy and fixation changes in the cervical spine. Alignment: Grade 1 anterolisthesis of C7 on T1. Posttraumatic low-grade anterolisthesis of T11 on T12. Postoperative changes: Postoperative changes of T1 on 12 posterior decompressive laminectomy. Cord: The thoracic spinal cord is within normal limits of signal intensity and morphology. Bone marrow signal/fracture: Generalized osteopenia. T4 vertebral body intraosseous hemangioma. No evidence of pathologic marrow infiltration. No evidence of acute fracture. Chronic anterior insufficiency versus pathologic fractures of the T5, T6, and T12 vertebral bodies with corresponding to 10%, 30-40%, and 50% anterior vertebral body height loss respectively at these levels, grossly unchanged from prior CT chest 07/31/2023 when accounting for differences in modality. No bony retropulsion. Prominent Schmorl's nodes within the T5, T9, T10, and T12 superior endplates and T7 and T9 inferior endplates. Thoracic soft tissues: The paraspinal soft tissues are within normal limits. Canal and foramina: Shallow disc bulges T2-T3, T5-6, and T7-T12 with scattered superimposed ligamentum flavum thickening resulting in up to mild spinal canal narrowing at T9-10 and T10-11. No high-grade thoracic spinal canal stenosis. Moderate bilateral neural foraminal narrowing at C7-T1, T10-T11, and T11-T12. LUMBAR: Counting reference: Craniocervical and lumbosacral junctions. For the purposes of this report, L4-5 is considered the level of the iliac crest and assume there are 5 lumbar-type vertebrae. Anatomic variant: None. Localizer images: Small intrahepatic T2 hyperintense presumed cysts. Splenomegaly measuring up to 13.7 cm in greatest craniocaudal dimension. Bilateral renal T2 hyperintense presumed cysts. Scattered colonic diverticulosis. Degenerative changes of the bilateral hips with trace of joint effusions. Alignment: Dextroconvex curvature of the T11 and levoconvex curvature of the L3 vertebral bodies. Minimal RIGHT lateral listhesis of L1 on L2. Kyphotic reversal of the upper lumbar spine apex at L1-L2 and exaggerated lumbar lordosis apex at L5. Minimal degenerative retrolisthesis of L1 on L2 and fixed low-grade retrolisthesis of L4 on L5. Fixed grade 1-2 anterolisthesis of L5 on S1. Postoperative changes: Postoperative changes of L2-L5 discectomy with interbody spacer constructs. L4-S1 posterior decompressive laminectomy and L2-S1 posterior instrumented fixation with transpedicular screws and vertically oriented interconnecting rods. Bone marrow signal/fracture: No evidence of pathologic marrow infiltration. No evidence of acute fracture. Favor chronic anterior wedging of the L1 vertebral body, with vague marrow edema along the L1 inferior endplate, biomechanical stress-related edema and/or degenerative in etiology. Multilevel degenerative disc disease with severe height loss and disc desiccation at L1-L2 and moderate loss at L5-S1. Conus: The conus terminates at L1-L2 and is within normal limits of morphology and signal. Normal course and caliber of the descending cauda equina nerve roots. Paraspinal soft tissues: Disruption of the posterior paraspinal soft tissues overlying the operative bed. No loculated collections. L1-L2: Mild spinal canal and mild bilateral neural foraminal narrowing secondary to retrolisthesis, endplate osteophytes, bilateral ligamentum flavum thickening, and facet arthropathy. Partial effacement of the subarticular zones with minimal abutment of the traversing L2 nerve roots without evidence of impingement. L2-L3: Mild spinal canal narrowing secondary to fixed retrolisthesis, bilateral ligamentum flavum thickening, and facet arthropathy. Bilateral foramina remain patent. L3-L4: Posterior decompression without residual spinal canal narrowing. Facet arthropathy resulting in up to moderate RIGHT neural for (more content not included)... DIVISION OF RADIOLOGY Provider, [facility]27/[facility] * * *Final Report* * * DATE OF EXAM: Dec 27 2024 11:20AM [facility] [id number] - MRI LUMBAR SPINE WO IVCON / PROCEDURE REASON: lumbar /thoracic wo * * * * Physician Interpretation * * * * EXAMINATION: MRI THORACIC SPINE WO IVCON, MRI LUMBAR SPINE WO IVCON CLINICAL HISTORY: MID AND LOW BACK PAIN'; SPONDYLOSIS WITH MYELOPATHY (accession [id number]), TECHNIQUE: Routine lumbosacral and thoracic spine MR protocol without gadolinium. MQ: [id number]_3 COMPARISON: CT chest 07/31/2023, CT abdomen pelvis 11/15/2017 RESULT: THORACIC: Counting reference: Craniocervical and lumbosacral junctions. For the purposes of this report, L4-5 is considered the level of the iliac crest and assume there are 5 lumbar-type vertebrae. Anatomic variant: None. Localizer images: Degenerative changes of the LEFT glenohumeral joint with joint effusion. Partially visualized C4-C5 anterior discectomy and fixation changes in the cervical spine. Alignment: Grade 1 anterolisthesis of C7 on T1. Posttraumatic low-grade anterolisthesis of T11 on T12. Postoperative changes: Postoperative changes of T1 on 12 posterior decompressive laminectomy. Cord: The thoracic spinal cord is within normal limits of signal intensity and morphology. Bone marrow signal/fracture: Generalized osteopenia. T4 vertebral body intraosseous hemangioma. No evidence of pathologic marrow infiltration. No evidence of acute fracture. Chronic anterior insufficiency versus pathologic fractures of the T5, T6, and T12 vertebral bodies with corresponding to 10%, 30-40%, and 50% anterior vertebral body height loss respectively at these levels, grossly unchanged from prior CT chest 07/31/2023 when accounting for differences in modality. No bony retropulsion. Prominent Schmorl's nodes within the T5, T9, T10, and T12 superior endplates and T7 and T9 inferior endplates. Thoracic soft tissues: The paraspinal soft tissues are within normal limits. Canal and foramina: Shallow disc bulges T2-T3, T5-6, and T7-T12 with scattered superimposed ligamentum flavum thickening resulting in up to mild spinal canal narrowing at T9-10 and T10-11. No high-grade thoracic spinal canal stenosis. Moderate bilateral neural foraminal narrowing at C7-T1, T10-T11, and T11-T12. LUMBAR: Counting reference: Craniocervical and lumbosacral junctions. For the purposes of this report, L4-5 is considered the level of the iliac crest and assume there are 5 lumbar-type vertebrae. Anatomic variant: None. Localizer images: Small intrahepatic T2 hyperintense presumed cysts. Splenomegaly measuring up to 13.7 cm in greatest craniocaudal dimension. Bilateral renal T2 hyperintense presumed cysts. Scattered colonic diverticulosis. Degenerative changes of the bilateral hips with trace of joint effusions. Alignment: Dextroconvex curvature of the T11 and levoconvex curvature of the L3 vertebral bodies. Minimal RIGHT lateral listhesis of L1 on L2. Kyphotic reversal of the upper lumbar spine apex at L1-L2 and exaggerated lumbar lordosis apex at L5. Minimal degenerative retrolisthesis of L1 on L2 and fixed low-grade retrolisthesis of L4 on L5. Fixed grade 1-2 anterolisthesis of L5 on S1. Postoperative changes: Postoperative changes of L2-L5 discectomy with interbody spacer constructs. L4-S1 posterior decompressive laminectomy and L2-S1 posterior instrumented fixation with transpedicular screws and vertically oriented interconnecting rods. Bone marrow signal/fracture: No evidence of pathologic marrow infiltration. No evidence of acute fracture. Favor chronic anterior wedging of the L1 vertebral body, with vague marrow edema along the L1 inferior endplate, biomechanical stress-related edema and/or degenerative in etiology. Multilevel degenerative disc disease with severe height loss and disc desiccation at L1-L2 and moderate loss at L5-S1. Conus: The conus terminates at L1-L2 and is within normal limits of morphology and signal. Normal course and caliber of the descending cauda equina nerve roots. Paraspinal soft tissues: Disruption of the posterior paraspinal soft tissues overlying the operative bed. No loculated collections. L1-L2: Mild spinal canal and mild bilateral neural foraminal narrowing secondary to retrolisthesis, endplate osteophytes, bilateral ligamentum flavum thickening, and facet arthropathy. Partial effacement of the subarticular zones with minimal abutment of the traversing L2 nerve roots without evidence of impingement. L2-L3: Mild spinal canal narrowing secondary to fixed retrolisthesis, bilateral ligamentum flavum thickening, and facet arthropathy. Bilateral foramina remain patent. L3-L4: Posterior decompression without residual spinal canal narrowing. Facet arthropathy resulting in up to moderate RIGHT neural jose martin (more content not included)... [facility] MR Thoracic spine WO [facility] 12-27-2024 * * *Final Report* * * DATE OF EXAM: Dec 27 2024 11:20AM [facility] [id number] - MRI THORACIC SPINE WO IVCON / PROCEDURE REASON: lumbar /thoracic wo * * * * Physician Interpretation * * * * EXAMINATION: MRI THORACIC SPINE WO IVCON, MRI LUMBAR SPINE WO IVCON CLINICAL HISTORY: MID AND LOW BACK PAIN'; SPONDYLOSIS WITH MYELOPATHY (accession [id number]), TECHNIQUE: Routine lumbosacral and thoracic spine MR protocol without gadolinium. MQ: [id number]_3 COMPARISON: CT chest 07/31/2023, CT abdomen pelvis 11/15/2017 RESULT: THORACIC: Counting reference: Craniocervical and lumbosacral junctions. For the purposes of this report, L4-5 is considered the level of the iliac crest and assume there are 5 lumbar-type vertebrae. Anatomic variant: None. Localizer images: Degenerative changes of the LEFT glenohumeral joint with joint effusion. Partially visualized C4-C5 anterior discectomy and fixation changes in the cervical spine. Alignment: Grade 1 anterolisthesis of C7 on T1. Posttraumatic low-grade anterolisthesis of T11 on T12. Postoperative changes: Postoperative changes of T1 on 12 posterior decompressive laminectomy. Cord: The thoracic spinal cord is within normal limits of signal intensity and morphology. Bone marrow signal/fracture: Generalized osteopenia. T4 vertebral body intraosseous hemangioma. No evidence of pathologic marrow infiltration. No evidence of acute fracture. Chronic anterior insufficiency versus pathologic fractures of the T5, T6, and T12 vertebral bodies with corresponding to 10%, 30-40%, and 50% anterior vertebral body height loss respectively at these levels, grossly unchanged from prior CT chest 07/31/2023 when accounting for differences in modality. No bony retropulsion. Prominent Schmorl's nodes within the T5, T9, T10, and T12 superior endplates and T7 and T9 inferior endplates. Thoracic soft tissues: The paraspinal soft tissues are within normal limits. Canal and foramina: Shallow disc bulges T2-T3, T5-6, and T7-T12 with scattered superimposed ligamentum flavum thickening resulting in up to mild spinal canal narrowing at T9-10 and T10-11. No high-grade thoracic spinal canal stenosis. Moderate bilateral neural foraminal narrowing at C7-T1, T10-T11, and T11-T12. LUMBAR: Counting reference: Craniocervical and lumbosacral junctions. For the purposes of this report, L4-5 is considered the level of the iliac crest and assume there are 5 lumbar-type vertebrae. Anatomic variant: None. Localizer images: Small intrahepatic T2 hyperintense presumed cysts. Splenomegaly measuring up to 13.7 cm in greatest craniocaudal dimension. Bilateral renal T2 hyperintense presumed cysts. Scattered colonic diverticulosis. Degenerative changes of the bilateral hips with trace of joint effusions. Alignment: Dextroconvex curvature of the T11 and levoconvex curvature of the L3 vertebral bodies. Minimal RIGHT lateral listhesis of L1 on L2. Kyphotic reversal of the upper lumbar spine apex at L1-L2 and exaggerated lumbar lordosis apex at L5. Minimal degenerative retrolisthesis of L1 on L2 and fixed low-grade retrolisthesis of L4 on L5. Fixed grade 1-2 anterolisthesis of L5 on S1. Postoperative changes: Postoperative changes of L2-L5 discectomy with interbody spacer constructs. L4-S1 posterior decompressive laminectomy and L2-S1 posterior instrumented fixation with transpedicular screws and vertically oriented interconnecting rods. Bone marrow signal/fracture: No evidence of pathologic marrow infiltration. No evidence of acute fracture. Favor chronic anterior wedging of the L1 vertebral body, with vague marrow edema along the L1 inferior endplate, biomechanical stress-related edema and/or degenerative in etiology. Multilevel degenerative disc disease with severe height loss and disc desiccation at L1-L2 and moderate loss at L5-S1. Conus: The conus terminates at L1-L2 and is within normal limits of morphology and signal. Normal course and caliber of the descending cauda equina nerve roots. Paraspinal soft tissues: Disruption of the posterior paraspinal soft tissues overlying the operative bed. No loculated collections. L1-L2: Mild spinal canal and mild bilateral neural foraminal narrowing secondary to retrolisthesis, endplate osteophytes, bilateral ligamentum flavum thickening, and facet arthropathy. Partial effacement of the subarticular zones with minimal abutment of the traversing L2 nerve roots without evidence of impingement. L2-L3: Mild spinal canal narrowing secondary to fixed retrolisthesis, bilateral ligamentum flavum thickening, and facet arthropathy. Bilateral foramina remain patent. L3-L4: Posterior decompression without residual spinal canal narrowing. Facet arthropathy resulting in up to moderate RIGHT neural f (more content not included)... DIVISION OF RADIOLOGY Provider, [facility] - 12/27/2024 * * *Final Report* * * DATE OF EXAM: Dec 27 2024 11:20AM [facility] [id number] - MRI THORACIC SPINE WO IVCON / PROCEDURE REASON: lumbar /thoracic wo * * * * Physician Interpretation * * * * EXAMINATION: MRI THORACIC SPINE WO IVCON, MRI LUMBAR SPINE WO IVCON CLINICAL HISTORY: MID AND LOW BACK PAIN'; SPONDYLOSIS WITH MYELOPATHY (accession [id number]), TECHNIQUE: Routine lumbosacral and thoracic spine MR protocol without gadolinium. MQ: [id number] COMPARISON: CT chest 07/31/2023, CT abdomen pelvis 11/15/2017 RESULT: THORACIC: Counting reference: Craniocervical and lumbosacral junctions. For the purposes of this report, L4-5 is considered the level of the iliac crest and assume there are 5 lumbar-type vertebrae. Anatomic variant: None. Localizer images: Degenerative changes of the LEFT glenohumeral joint with joint effusion. Partially visualized C4-C5 anterior discectomy and fixation changes in the cervical spine. Alignment: Grade 1 anterolisthesis of C7 on T1. Posttraumatic low-grade anterolisthesis of T11 on T12. Postoperative changes: Postoperative changes of T1 on 12 posterior decompressive laminectomy. Cord: The thoracic spinal cord is within normal limits of signal intensity and morphology. Bone marrow signal/fracture: Generalized osteopenia. T4 vertebral body intraosseous hemangioma. No evidence of pathologic marrow infiltration. No evidence of acute fracture. Chronic anterior insufficiency versus pathologic fractures of the T5, T6, and T12 vertebral bodies with corresponding to 10%, 30-40%, and 50% anterior vertebral body height loss respectively at these levels, grossly unchanged from prior CT chest 07/31/2023 when accounting for differences in modality. No bony retropulsion. Prominent Schmorl's nodes within the T5, T9, T10, and T12 superior endplates and T7 and T9 inferior endplates. Thoracic soft tissues: The paraspinal soft tissues are within normal limits. Canal and foramina: Shallow disc bulges T2-T3, T5-6, and T7-T12 with scattered superimposed ligamentum flavum thickening resulting in up to mild spinal canal narrowing at T9-10 and T10-11. No high-grade thoracic spinal canal stenosis. Moderate bilateral neural foraminal narrowing at C7-T1, T10-T11, and T11-T12. LUMBAR: Counting reference: Craniocervical and lumbosacral junctions. For the purposes of this report, L4-5 is considered the level of the iliac crest and assume there are 5 lumbar-type vertebrae. Anatomic variant: None. Localizer images: Small intrahepatic T2 hyperintense presumed cysts. Splenomegaly measuring up to 13.7 cm in greatest craniocaudal dimension. Bilateral renal T2 hyperintense presumed cysts. Scattered colonic diverticulosis. Degenerative changes of the bilateral hips with trace of joint effusions. Alignment: Dextroconvex curvature of the T11 and levoconvex curvature of the L3 vertebral bodies. Minimal RIGHT lateral listhesis of L1 on L2. Kyphotic reversal of the upper lumbar spine apex at L1-L2 and exaggerated lumbar lordosis apex at L5. Minimal degenerative retrolisthesis of L1 on L2 and fixed low-grade retrolisthesis of L4 on L5. Fixed grade 1-2 anterolisthesis of L5 on S1. Postoperative changes: Postoperative changes of L2-L5 discectomy with interbody spacer constructs. L4-S1 posterior decompressive laminectomy and L2-S1 posterior instrumented fixation with transpedicular screws and vertically oriented interconnecting rods. Bone marrow signal/fracture: No evidence of pathologic marrow infiltration. No evidence of acute fracture. Favor chronic anterior wedging of the L1 vertebral body, with vague marrow edema along the L1 inferior endplate, biomechanical stress-related edema and/or degenerative in etiology. Multilevel degenerative disc disease with severe height loss and disc desiccation at L1-L2 and moderate loss at L5-S1. Conus: The conus terminates at L1-L2 and is within normal limits of morphology and signal. Normal course and caliber of the descending cauda equina nerve roots. Paraspinal soft tissues: Disruption of the posterior paraspinal soft tissues overlying the operative bed. No loculated collections. L1-L2: Mild spinal canal and mild bilateral neural foraminal narrowing secondary to retrolisthesis, endplate osteophytes, bilateral ligamentum flavum thickening, and facet arthropathy. Partial effacement of the subarticular zones with minimal abutment of the traversing L2 nerve roots without evidence of impingement. L2-L3: Mild spinal canal narrowing secondary to fixed retrolisthesis, bilateral ligamentum flavum thickening, and facet arthropathy. Bilateral foramina remain patent. L3-L4: Posterior decompression without residual spinal canal narrowing. Facet arthropathy resulting in up to moderate RIGHT neural for (more content not included)... [facility] No Panel Informationon 12-27 IMPRESSION: THORACIC spine: * Diffuse osteopenia. No clear evidence of pathologic marrow replacing process. * Chronic insufficiency and/or pathologic fractures of the T5, T6, and T12 vertebral bodies without significant bony retropulsion. * Spondylolisthesis and multilevel degenerative spondylosis without high-grade spinal canal or neuroforaminal stenosis. LUMBAR spine: * Diffuse osteopenia. No clear evidence of pathologic marrow replacing process. * L2-S1 posterior instrumented fixation with multilevel decompressive laminectomies. * Superimposed scoliosis, multilevel spondylolisthesis, degenerative spondylosis without high-grade spinal canal stenosis. Multilevel variable up to severe neuroforaminal narrowing at L5-S1. Anatomic Thoracic/Lumbar Variant: None. L4-5 is considered the level of the iliac crest and assume there are 5 lumbar-type vertebrae. Electronics Engineering Manager: [facility] Transcribe Date/Time: Dec 27 2024 12:03P Dictated by : ANNABELLE TAI MD This examination was interpreted and the report reviewed and electronically signed by: ANNABELLE TAI MD on Dec 27 2024 12:20PM [facility] DIVISION OF RADIOLOGY Radiology Study observation (narrative) [facility] No Panel InformationOrdered By: [facility] Provider on 12-27-2024 [facility] L/S Spine Min 4 Viewson 11-17 L/S Spine Min 4 Views [facility] Imaging Services [address] [place] [address] L/S Spine Min 4 Views MR#: [id number] Acct: [id number] Name: RONNIE YARBROUGH Rep #: [id number] : 1950 M 74 From: Leno Yost MD PCP: Dr. Ovidio Vincent MD Status: DEP AMB Study: L/S Spine Min 4 Views Date of Exam: 12/05/24 Exam# [id number] Ordering Dr: Caio Gomez MD PROCEDURE: L/S SPINE MIN 4 VIEWS ([facility]), 12/05/2024 REASON FOR EXAM: ONGOING PAIN TECHNIQUE: AP, lateral, and lateral flexion/extension views of the lumbar spine were obtained. COMPARISON: None FINDINGS: L2-S1 posterior spinal fusion with laminectomy. Disc spacers from L2-L5. Pedicle screws at the L5 level extend anteriorly less than 50% through the AP dimension of the vertebral body. Fracture/dislocation: Age-indeterminate T12 compression deformity with approximately 40% loss of anterior vertebral body height. Old RIGHT posterior 11th rib fracture. Vertebral body heights: As above. Alignment: Lumbar levoscoliosis. Grade 1/2 anterolisthesis at L5-S1. mild likely degenerative retrolisthesis from L2-L5. Disc spaces: Variable disc height loss up to severe at L1-L2 above the level of the fusion Facets: Suspect facet arthropathy. Soft tissues: Unremarkable. Foreign bodies: None visible. Bone mineralization: Demineralization. RAD/L/S Spine Min 4 Views IMPRESSION: 1. Demineralization with an age-indeterminate T12 compression deformity. Correlate with history and point tenderness. Comparison with any available outside imaging may also be helpful in this regard. 2. Operative changes at L2-S1 including posterior spinal fusion. Pedicle screws at the L5 level extend less than longterm through the AP dimension of the vertebral body, with associated grade 1/2 anterolisthesis at L5-S1. This is of uncertain significance and chronicity given the absence of prior exams. Correlate with patient's previous postoperative imaging, as progressive anterolisthesis and associated hardware migration is not excluded. CT could be considered to evaluate for more subtle evidence of loosening/migration if there is clinical ambiguity. 3. Multilevel spondylosis and additional description as above. Reading Location: [facility] CC: Dr. Caio Gomez MD; Dr. Ovidio Vincent MD Electronics Engineering Manager: Signed Normal [facility] Orthopedic Visit Reporton Orthopedic Visit Report [facility] [place] [address] OFFICE VISIT Date of Service: 12/05/24 MR#: [id number] Acct: [id number] Name: RONNIE YARBROUGH Rep #: [id number] : 1950 Provider: Dr. Caio Gomez MD Age/Sex: 74/M [place] [facility] Status: Signed Intake Vital Signs 08/08/24 08:43 12/05/24 10:30 Height 5 ft 9 in 5 ft 9 in Weight: 209 lb 8 oz BMI 30.9 Intake Visit Reasons: LUMBAR SPINE Is patient in pain?: Yes Pain scale (1-10): 9 Allergies No Known Allergies Allergy (Unverified 12/05/24 10:33) Medications ???Medication ???Instructions ???Recorded ???Confirmed ???Type aspirin 81 mg tablet,delayed 81 mg PO DAILY Heart 01/05/2311/17 History release calcium carb-ergocalciferol (vit 200 tab PO DAILY Supplment 3 12/05/24 History D2) 600 mg calcium-200 unit tablet cholecalciferol (vitamin D3) 50 50 mcg PO DAILY Supplement 3 12/05/24 History mcg (2,000 unit) tablet cyanocobalamin (vitamin B-12) 1,000 mcg PO DAILY Supplement 12/1812/05/24 History 1,000 mcg capsule losartan 25 mg tablet 25 mg PO DAILY BP 01/05/23 5 History metformin 1,000 mg tablet 1,000 mg PO BID DM 01/05/23 History multivitamin 1 tab PO DAILY Supplement 01/05/23 12/05/24 History omeprazole 40 mg capsule,delayed 40 mg PO DAILY GERD 01/05/2312/05 History release dulaglutide 1.5 mg/0.5 mL 1.5 mg subcut QWEEK DM 05/01/23 History subcutaneous pen injector (Trulicity) dapagliflozin propanediol 10 mg 10 mg PO DAILY 05/02/23 12/05/24 H istory tablet (Farxiga) fluticasone fur. 100 mcg-umeclid 1 inh inhalation DAILY 05/02/23 History 62.5 mcg-vilant 25 mcg inhalat.powder (Trelegy Ellipta) torsemide 20 mg tablet 20 mg PO DAILY 08/17/23 12/05/24 H istory atorvastatin 40 mg tablet 40 mg PO QDAY 03/06/24 12/05/24 Hi story terbinafine HCl 250 mg tablet 250 mg PO DAILY Antifungal 4 12/05/24 History carvedilol 12.5 mg tablet 12.5 mg PO BID #180 tabs 04/02/24 12/05/24 Rx magnesium oxide 250 mg PO QDAY 08/08/24 12/05/24 H istory oxycodone 5 mg tablet 5 mg PO TID PRN pain 12/05/2411/17 History Have you fallen in the past year?: No PFSH Medical History (Updated 12/06/24 @ 13:[address] Caio Gomez MD) Joint infection of right wrist DVT of lower extremity, bilateral Abnormal ECG Paroxysmal atrial fibrillation Essential hypertension History of multiple myeloma GERD (gastroesophageal reflux disease) Rheumatoid arthritis Osteoarthritis Diabetes mellitus COPD (chronic obstructive pulmonary disease) Hyperlipidemia Debility Thoracic spinal stenosis Bone tumor Surgical History (Updated 12/06/24 @ 13:[address] Caio Gomez MD) Hx of bilateral cataract extraction Hx of eye surgery History of total left knee replacement (TKR) ( 08/2023) History of tonsillectomy History of laminectomy History of carpal tunnel surgery of right wrist History of esophagogastroduodenoscopy History of colonoscopy History of bone marrow transplant History of total right knee replacement (TKR) History of reverse total replacement of right shoulder joint History of lumbar fusion Hx of fusion of cervical spine Family History Father Cancer, Onset Age: 52 Pancreatic cancer. Diabetes Sister Diabetes Grandmother Diabetes Social History household members: spouse Smoking Status: Former smoker quit date: 09/18/12 alcohol intake: current alcohol intake frequency: a few times a month substance use type: does not use caffeine: Yes Type: coffee Number of servings: 3 HPI LUMBAR SPINE Details: This documentation accurately reflects the service provided and the decisions made by me, Dr. Caio Gomez MD 12/05/24 1030. Part of today???s visit was documented by Rhea FLANNERY and Cassie Hernández RN, acting as scribe. RONNIE YARBROUGH is a 74 year old M NEW patient here today for low back pain. Patient was referred by Dr. Paul pain management. He states that he has been having pain for 15-20 years and it has progressively gotten worse over time. He states that he has had multiple injections and about [address] Paul tried to go in and give him an implant for a pain stimulator but states that it didn't work which was why he referred him to us. He states Dr. Paul was unable to get the leads in during the procedure.He has had 3-4 previous surgeries on his lower back that were done at [facility]. His last back surgery was about 3 years ago and he had an MRI after that surgery that showed compression and a fracture. He is unable to recall the exact dates and what surgeries wer (more content not included)... [facility] CNPNon 11-12-2024 [facility] Telephone (BLANKA) RONNIE YARBROUGH I ([id number]) 1950 M Date Time Provider Department 11/12/24 MURRAY MOONEY During your visit today, we recorded the following information about you: Murray Mooney MD 11/12/2024 8:52 AM Signed Called pt reviewed myeloma labs. Will recheck in 4 months. Murray Mooney MD November 12, 2024 Lillian Flanagan 11/12/2024 9:20 AM Signed LVM for pt to call and schedule 4 MO OV and Myeloma labs week prior. Tiesha Wood 11/12/2024 4:04 PM Signed Scheduled OV with patient. Labs were already scheduled. Allergies As of Date: 11/12/2024 (No Known Allergies) Date Reviewed: 07/02/2024 Reviewed by: Shey Amador MA - Fully Assessed Reason for Visit: Results [95] Primary Visit Diagnosis:Multiple myeloma in remission (HCC) [C90.01] Order(s):COMPLETE BLOOD COUNT AND DIFFERENTIAL [SQCBCDIF] Order #: [id number] STANDING KAPPA/PHAN,FREE,SER [SQKLFRS] Order #: [id number] STANDING BASIC METABOLIC PANEL [SQBMP] Order #: [id number] STANDING PROTEIN ELECTROPHORESIS SERUM W/INTERP [SQSEPG] Order #: [id number] STANDING MONOCLONAL PROTEIN, SERUM (BLOOD) [SQSERMPA] Order #: [id number] STANDING Prescriptions as of 11/12/2024 - atorvastatin (LIPITOR) 40 mg tablet Take 1 tablet by mouth once daily. - dulaglutide (TRULICITY) 3 mg/0.5 mL pen injector Inject 3 mg subcutaneously one time a week. Inject once per week. Discard Pen After - omeprazole (PRILOSEC) 40 mg capsule TAKE ONE CAPSULE BY MOUTH ONCE DAILY ON AN EMPTY STOMACH - carvedilol (COREG) 12.5 mg tablet Take 1 tablet by mouth two times a day with meals. Per [facility] - dapagliflozin propanediol (FARXIGA) 10 mg tablet Take 1 tablet by mouth once daily. Take one daily in the morning - doxycycline monohydrate (MONODOX) 100 mg capsule TAKE 1 CAPSULE BY MOUTH TWICE DAILY FOR 28 DAYS - oxyCODONE IR (ROXICODONE) 5 mg immediate release tablet TAKE ONE-HALF TO ONE TABLET BY MOUTH EVERY 4 HOURS NEEDED FOR PAIN - amoxicillin-clavulanate potassium (AUGMENTIN) 875-125 mg per tablet Take 1 tablet by mouth every 12 hours. - losartan (COZAAR) 25 mg tablet Take 0.5 tablets by mouth once daily. - Magnesium Oxide 250 mg magnesium tab Take two in the AM and one in the PM. - metFORMIN (GLUCOPHAGE) 1,000 mg tablet Take 1 tablet by mouth two times a day with meals. - torsemide (DEMADEX) 20 mg tablet Take 1 tablet by mouth two times a day. . - ssywpbtdkqm-csrivctvt-zcrgyb er (TRELEGY ELLIPTA) 100-62.5-25 mcg inhalation powder inhale 1 puff by mouth and INTO THE LUNGS once daily - aspirin, enteric coated (ASPIRIN, ENTERIC COATED) 81 mg EC tablet Take 1 tablet by mouth once daily. - Cholecalciferol, Vitamin D3, (VITAMIN D-3) 50 mcg (2,000 unit) cap Take 1 capsule by mouth once daily. - terbinafine HCl (LAMISIL) 250 mg tablet Take 1 tablet by mouth once daily. - cyanocobalamin (VITAMIN B-12) 1,000 mcg tab Take 1 tablet by mouth once daily. - Calcium-Cholecalciferol, D3, 600 mg-5 mcg (200 unit) cap Take 1 capsule by mouth once daily. Problem List As Of Date 11/12/2024 Noted Resolved Peripheral autonomic neuropathy in disorders cl*06/07/2005 Mixed hyperlipidemia [E78.2] 10/31/2006 Spinal stenosis, lumbar region, without neuroge*11/13/2006 GERD (gastroesophageal reflux disease) [K21.9] 12/27/2011 Tobacco abuse [Z72.0] 12/27/2011 10/01/2012 Special screening for malignant neoplasms, colo*09/06/2012 06/13/2018 Esophagitis, unspecified [K20.90] 09/25/2012 01/06/2014 Obesity, Class I, BMI 30-34.9 [E66.811] 10/01/2012 Venous insufficiency, peripheral [I87.2] 01/06/2014 11/25/2019 Acute bronchitis with chronic obstructive pulmo*12/30/2014 06/26/2017 Vitamin D deficiency [E55.9] 12/31/2014 Class 1 obesity due to excess calories with ser*06/26/2017 11/25/2019 Multiple myeloma (HCC) [C90.00] 11/28/2017 Adjustment insomnia [F51.02] 12/07/2017 05/14/2018 Multiple myeloma in remission (HCC) [C90.01] 12/07/2017 Leg DVT (deep venous thromboembolism), acute, l*01/02/2018 11/25/2019 Type 2 diabetes mellitus without complication, *04/12/2018 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, T38.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]04/19/2018 05/14/2018 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] 06/13/2018 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/13/2018 Bilateral lower extremity edema [R60.0] 06/13/2018 07/17/2018 Essential hypertension [I10] 06/13/2018 JOSE ENRIQUE (acute kidney injury) (HCC) [N17.9] 06/16/2018 06/18/2018 Hyperkalemia [E87.5] 06/18/2018 2018 Chemotherapy induced nausea and vomiting [R11.2*06/18/2018 07/02/2018 Difficulty coping [R45.89] 06/20/2018 06/26/2018 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) [D61.810]06/25/2018 Fall [W19.XXXA] 07/17/2018 11/25/2019 Acute on chronic systolic CHF (congestive heart*10/04/2019 11/25/2019 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 Normal [facility] Basic metabolic 2000 panelon 11-04-2024 Anion gap [Moles/Vol] 8 mmol/L Normal 8-15 [facility] Comment on above: Order Comment: Speci men Type: BLOOD SPECIMENOrdering Facility: [facility] Address: [address] [place], [place] [id number] Performed By: #### 2 4321-2 ####[facility] [id number] [place] [address] [place] Calcium [Mass/Vol] 10.2 mg/dL Normal 8.5-10.2 [facility] Comment on above: Order Comment: Speci men Type: BLOOD SPECIMENOrdering Facility: [facility] Address: [facility] [place] [id number] Performed By: #### 2 4321-2 ####[facility] [id number] [place] [address] [place] Chloride [Moles/Vol] 100 mmol/L Normal 98-107 [facility] Comment on above: Order Comment: Speci men Type: BLOOD SPECIMENOrdering Facility: [facility] Address: [address] [place] [address] Performed By: #### 2 4321-2 ####[facility] [id number] [place] [address] [place] CO2 [Moles/Vol] 30 mmol/L Normal 22-30 [facility] Comment on above: Order Comment: Speci men Type: BLOOD SPECIMENOrdering Facility: [facility] Address: [address] [place] [address] Performed By: #### 2 4321-2 ####[facility] [id number] [place] [address] [place] Creatinine [Mass/Vol] 0.90 mg/dL Normal 0.73-1.22 [facility] Comment on above: Order Comment: Speci men Type: BLOOD SPECIMENOrdering Facility: [facility] Address: [address] [place] [address] Performed By: #### 2 4321-2 ####[facility] [id number] [address] STATES OF [facility] Creatinine and Glomerular filtration rate.predicted panel (S/P/Bld) 90 mL/min/1.73m??? Normal >=60 [facility] Comment on above: Order Comment: Speci men Type: BLOOD SPECIMENOrdering Facility: [facility] Address: [address] [place] [address] Result Comment: Aleyda mated Glomerular Filtration Rate (eGFR) is calculated using the 2020 CKD-EPI creatinine equation. This equation utilizes serum creatinine, sex, and age as parameters. The creatinine assay has traceable calibration to isotope dilution-mass spectrometry. Refer to KDIGO guidelines for clinical interpretation. In patients with unstable renal function, e.g. those with acute kidney injury, the eGFR may not accurately reflect actual GFR. Performed By: #### 2 4321-2 ####[facility] [id number] [place] [address] [place] Glucose [Mass/Vol] 132 mg/dL High 74-99 [facility] Comment on above: Order Comment: Speci men Type: BLOOD SPECIMENOrdering Facility: [facility] Address: [address] [place] [address] Result Comment: The [place] [employer] (ADA) provides guidance for cutoff values for fasting glucose and random glucose. The ADA defines fasting as no caloric intake for at least 8 hours. Fasting plasma glucose results between 100 to 125 mg/dL indicate increased risk for diabetes (prediabetes). Fasting plasma glucose results greater than or equal to 126 mg/dL meet the criteria for diagnosis of diabetes. In the absence of unequivocal hyperglycemia, results should be confirmed by repeat testing. In a patient with classic symptoms of hyperglycemia or hyperglycemic crisis, random plasma glucose results greater than or equal to 200 mg/dL meet the criteria for diagnosis of diabetes. Reference: Standards of Medical Care in Diabetes 2016, [place] Diabetes Association. Diabetes Care. 2016.39(Suppl 1). Performed By: #### 2 4321-2 ####[facility] MILLTOWNCLIA [id number] [place] [address] [place] Potassium [Moles/Vol] 4.5 mmol/L Normal 3.7-5.1 [facility] Comment on above: Order Comment: Speci men Type: BLOOD SPECIMENOrdering Facility: [facility] Address: [address] [place] [address] Performed By: #### 2 4321-2 ####[facility] MILLWNCLIA [id number] [place] [address] [place] Sodium [Moles/Vol] 138 mmol/L Normal 136-144 [facility] Comment on above: Order Comment: Speci men Type: BLOOD SPECIMENOrdering Facility: [facility] Address: [address] [place], [place] [id number] Performed By: #### 2 4321-2 ####[facility] MILLWNCLIA [id number] [place] [address] [place] Urea nitrogen [Mass/Vol] 20 mg/dL Normal 9-24 [facility] Comment on above: Order Comment: Speci men Type: BLOOD SPECIMENOrdering Facility: [facility] Address: [address] [place] [address] Performed By: #### 2 4321-2 ####[facility] [id number] [place] [address] [place] CBC W Auto Differential pane l (Bld)on 11-04-2024 Basophils (Bld) [#/Vol] 10*3/uL Normal <0.11 [facility] Comment on above: Order Comment: Speci men Type: BLOOD SPECIMEN Ordering Facility: [facility] Address: [address] [place] [address] Performed By: #### 5 7021-8 #### [facility] CLIA [id number] [address] [place] [address] [place] Basophils/100 WBC (Bld) 0.2 % Normal [facility] Comment on above: Order Comment: Speci men Type: BLOOD SPECIMEN Ordering Facility: [facility] Address: [address] [place] [address] Performed By: #### 5 7021-8 #### [facility] CLIA [id number] [address] [place] [address] [place] Differential cell count method Nom (Bld) Auto Normal [facility] Comment on above: Order Comment: Speci men Type: BLOOD SPECIMEN Ordering Facility: [facility] Address: [address] [place] [address] Performed By: #### 5 7021-8 #### [facility] CLIA [id number] [address] [place] [address] [place] Eosinophils (Bld) [#/Vol] 0.03 10*3/uL Normal <0.46 [facility] Comment on above: Order Comment: Speci men Type: BLOOD SPECIMEN Ordering Facility: [facility] Address: [address] [place] [address] Performed By: #### 5 7021-8 #### [facility] CLIA [id number] [address] [place] [address] [place] Eosinophils/100 WBC (Bld) 0.5 % Normal [facility] Comment on above: Order Comment: Speci men Type: BLOOD SPECIMEN Ordering Facility: [facility] Address: [address] [place] [address] Performed By: #### 5 7021-8 #### [facility] CLIA [id number] [address] [place] [address] [place] Erythrocyte distribution width (RBC) [Ratio] 16.4 % High 11.5-15.0 [facility] Comment on above: Order Comment: Speci men Type: BLOOD SPECIMEN Ordering Facility: [facility] Address: [address] [place] [address] Performed By: #### 5 7021-8 #### [facility] CLIA [id number] [address] [place] [address] [place] Hematocrit (Bld) [Volume fraction] 46.1 % Normal 39.0-51.0 [facility] Comment on above: Order Comment: Speci men Type: BLOOD SPECIMEN Ordering Facility: [facility] Address: [address] [place] [address] Performed By: #### 5 7021-8 #### [facility] CLIA [id number] [address] [place] [address] [place] Hemoglobin (Bld) [Mass/Vol] 14.8 g/dL Normal 13.0-17.0 [facility] Comment on above: Order Comment: Speci men Type: BLOOD SPECIMEN Ordering Facility: [facility] Address: [address] [place] [address] Performed By: #### 5 7021-8 #### [facility] CLIA [id number] [address] [place] [address] [place] Immature granulocytes (Bld) [#/Vol] 0.03 10*3/uL Normal <0.10 [facility] Comment on above: Order Comment: Speci men Type: BLOOD SPECIMEN Ordering Facility: [facility] Address: [address] [place] [address] Performed By: #### 5 7021-8 #### [facility] CLIA [id number] [address] [place] [address] [place] Immature granulocytes/100 WBC (Bld) 0.5 % Normal [facility] Comment on above: Order Comment: Speci men Type: BLOOD SPECIMEN Ordering Facility: [facility] Address: [address] [place] [address] Performed By: #### 5 7021-8 #### [facility] CLIA [id number] [address] [place] [address] [place] Lymphocytes (Bld) [#/Vol] 0.83 10*3/uL Low 1.00-4.00 [facility] Comment on above: Order Comment: Speci men Type: BLOOD SPECIMEN Ordering Facility: [facility] Address: [address] [place] [address] Performed By: #### 5 7021-8 #### [facility] CLIA [id number] [address] [place] [address] [place] Lymphocytes/100 WBC (Bld) 13.2 % Normal [facility] Comment on above: Order Comment: Speci men Type: BLOOD SPECIMEN Ordering Facility: [facility] Address: [address] [place] [address] Performed By: #### 5 7021-8 #### [facility] CLIA [id number] [address] [place] [address] [place] MCH (RBC) [Entitic mass] 26.6 pg Normal 26.0-34.0 [facility] Comment on above: Order Comment: Speci men Type: BLOOD SPECIMEN Ordering Facility: [facility] Address: [address] [place] [address] Performed By: #### 5 7021-8 #### [facility] CLIA [id number] [address] [place] [address] [place] MCHC (RBC) [Mass/Vol] 32.1 g/dL Normal 30.5-36.0 [facility] Comment on above: Order Comment: Speci men Type: BLOOD SPECIMEN Ordering Facility: [facility] Address: [address] [place] [address] Performed By: #### 5 7021-8 #### [id number] [address] [place] [address] [place] MCV (RBC) [Entitic vol] 82.9 fL Normal 80.0-100.0 [facility] Comment on above: Order Comment: Speci men Type: BLOOD SPECIMEN Ordering Facility: [facility] Address: [address] [place] [address] Performed By: #### 5 7021-8 #### [facility] [id number] [address] [place] [address] [place] Monocytes (Bld) [#/Vol] 0.35 10*3/uL Normal <0.87 [facility] Comment on above: Order Comment: Speci men Type: BLOOD SPECIMEN Ordering Facility: [facility] Address: [address] [place] [address] Performed By: #### 5 7021-8 #### [facility] [id number] [address] [place] [address] [place] Monocytes/100 WBC (Bld) 5.6 % Normal [facility] Comment on above: Order Comment: Speci men Type: BLOOD SPECIMEN Ordering Facility: [facility] Address: [address] [place] [address] Performed By: #### 5 7021-8 #### [facility] CLIA [id number] [address] [place] [address] [place] Neutrophils (Bld) [#/Vol] 5.03 10*3/uL Normal 1.45-7.50 [facility] Comment on above: Order Comment: Speci men Type: BLOOD SPECIMEN Ordering Facility: [facility] Address: [address] [place] [address] Performed By: #### 5 7021-8 #### [facility] CLIA [id number] [address] [place] [address] [place] Neutrophils/100 WBC (Bld) 80.0 % Normal [facility] Comment on above: Order Comment: Speci men Type: BLOOD SPECIMEN Ordering Facility: [facility] Address: [address] [place] [address] Performed By: #### 5 7021-8 #### [facility] CLIA [id number] [address] [place] [address] [place] Nucleated RBC (Bld) [#/Vol] 10*3/uL Normal <0.01 [facility] Comment on above: Order Comment: Speci men Type: BLOOD SPECIMEN Ordering Facility: [facility] Address: [address] [place] [address] Performed By: #### 5 7021-8 #### [facility] CLIA [id number] [address] [place] [address] [place] Nucleated RBC/100 WBC (Bld) [Ratio] 0.0 /100 WBC Normal [facility] Comment on above: Order Comment: Speci men Type: BLOOD SPECIMEN Ordering Facility: [facility] Address: [address] [place] [address] Performed By: #### 5 7021-8 #### [facility] CLIA [id number] [address] [place] [address] [place] Platelet mean volume (Bld) [Entitic vol] 9.5 fL Normal 9.0-12.7 [facility] Comment on above: Order Comment: Speci men Type: BLOOD SPECIMEN Ordering Facility: [facility] Address: [address] [place] [address] Performed By: #### 5 7021-8 #### [facility] CLIA [id number] [address] [place] [address] [place] Platelets (Bld) [#/Vol] 175 10*3/uL Normal 150-400 [facility] Comment on above: Order Comment: Speci men Type: BLOOD SPECIMEN Ordering Facility: [facility] Address: [address] [place] [address] Performed By: #### 5 7021-8 #### [facility] CLIA [id number] [address] [place] [address] [place] RBC (Bld) [#/Vol] 5.56 10*6/uL Normal 4.20-6.00 [facility] Comment on above: Order Comment: Speci men Type: BLOOD SPECIMEN Ordering Facility: [facility] Address: [address] [place] [address] Performed By: #### 5 7021-8 #### [facility] CLIA [id number] [address] [place] [address] [place] WBC (Bld) [#/Vol] 6.28 10*3/uL Normal 3.70-11.00 [facility] Comment on above: Order Comment: Speci men Type: BLOOD SPECIMEN Ordering Facility: [facility] Address: [address] [place] [address] Performed By: #### 5 7021-8 #### [facility] CLIA [id number] [address] [place] [address] [place] IMMUNOFIXATION SCREEN, SERUM on 11-04-2024 INTERPRETATION (MPA) Poorly definded reg ion of restricted mobility in IgG and lambda lanes. Pattern is less well defined or fainter than typically seen in monoclonal gammopathy. This could represent either an atypical presentation of polyclonal immunoglobulins or the presence of a low level IgG lambda monoclonal gammopathy. If clinically indicated, urine monoclonal protein analysis and serum free light chain measurements are recommended to evaluate further for monoclonal gammopathy. Clinical correlation is necessary. Normal [facility] Comment on above: Order Comment: Jessi chen Type: BLOOD SPECIMEN Ordering Facility: [facility] Address: [address] [place] [address] Performed By: #### I FESC #### [facility] CLIA [id number] [address] [place] [address] [place] MPA RESULT A poorly defined reg ion of restricted mobility is present that may represent an M protein. Abnormal No M protein is identified. [facility] Comment on above: Order Comment: Jessi chen Type: BLOOD SPECIMEN Ordering Facility: [facility] Address: [address] [place] [address] Performed By: #### I FESC #### [facility] CLIA [id number] [address] [place] [address] [place] STAFF REVIEW (MPA) Reviewed by Piedad Cardoso M.D., Ph.D Normal [facility] Comment on above: Order Comment: Jessi chen Type: BLOOD SPECIMEN Ordering Facility: [facility] Address: [address] [place] [address] Performed By: #### I FESC #### [facility] CLIA [id number] [address] [place] [address] [place] IMMUNOGLOBULINS,IGG,IGA,IGMo n 11-04-2024 IgA [Mass/Vol] 84 mg/dL Normal 70-400 [facility] Comment on above: Order Comment: Jessi chen Type: BLOOD SPECIMEN Ordering Facility: [facility] Address: [address] [place] [address] Performed By: #### I FESC #### [facility] CLIA [id number] [address] [place] [address] [place] IgG [Mass/Vol] 888 mg/dL Normal 700-1600 [facility] Comment on above: Order Comment: Speci men Type: BLOOD SPECIMEN Ordering Facility: [facility] Address: [address] [place] [address] Performed By: #### I FESC #### [facility] CLIA [id number] [address] [place] [address] [place] IgM [Mass/Vol] 71 mg/dL Normal 40-230 [facility] Comment on above: Order Comment: Speci men Type: BLOOD SPECIMEN Ordering Facility: [facility] Address: [address] [place] [address] Performed By: #### I FESC #### [facility] CLIA [id number] [address] [place] [address] [place] KAPPA/PHAN,FREE,SERon 2024 Immunoglobulin light chains.kappa.free (S) [Mass/Vol] 27.2 mg/L High 3.3-19.4 [facility] Comment on above: Order Comment: Speci men Type: BLOOD SPECIMEN Ordering Facility: [facility] Address: [address] [place] [address] Result Comment: Rare ly, increased serum free light chains levels may not be detected or accurately quantified due to prozone phenomenon or in high viscosity samples using this immunoturbidimetric assay. Correlation with other laboratory results and clinical findings is recommended. The Bootjack Free Light Chain was performed using the Binding Site Optilite immunoturbidimetric method. Result obtained with different assay methods or kits cannot be used interchangeably. Performed By: #### I FESC #### [facility] CLIA [id number] [address] [place] [address] [place] Immunoglobulin light chains.kappa/Immunog lobulin light chains.lambda (S) [Mass ratio] 1.32 Normal 0.26-1.65 [facility] Comment on above: Order Comment: Speci men Type: BLOOD SPECIMEN Ordering Facility: [facility] Address: [address] [place] [address] Performed By: #### I FES #### [facility] CLIA [id number] [address] [place] [address] [place] Immunoglobulin light chains.lambda.free [Mass/Vol] 20.6 mg/L Normal 5.7-26.3 [facility] Comment on above: Order Comment: Speci men Type: BLOOD SPECIMEN Ordering Facility: [facility] Address: [address] [place] [address] Result Comment: Rare ly, increased serum free light chains levels may not be detected or accurately quantified due to prozone phenomenon or in high viscosity samples using this immunoturbidimetric assay. Correlation with other laboratory results and clinical findings is recommended. The Lambda Free Light Chain was performed using the Binding Site Optilite immunoturbidimetric method. Result obtained with different assay methods or kits cannot be used interchangeably. Performed By: #### I FES #### [facility] CLIA [id number] [address] [place] [address] [place] PROTEIN ELECTROPHORESIS SERU M (P)on 11-04-2024 Albumin [Mass/Vol] 3.65 g/dL Normal 3.43-5.41 [facility] Comment on above: Order Comment: Speci men Type: BLOOD SPECIMEN Ordering Facility: [facility] Address: [address] [place] [address] Performed By: #### 5 7021-8 #### [facility] [id number] [address] [place] [address] [place] Alpha 1 globulin Elph [Mass/Vol] 0.32 g/dL Normal 0.18-0.43 [facility] Comment on above: Order Comment: Speci men Type: BLOOD SPECIMEN Ordering Facility: [facility] Address: [address] [place] [address] Performed By: #### 5 7021-8 #### [facility] CLIA [id number] [address] [place] [address] [place] Alpha 2 globulin Elph [Mass/Vol] 0.78 g/dL Normal 0.42-0.98 [facility] Comment on above: Order Comment: Speci men Type: BLOOD SPECIMEN Ordering Facility: [facility] Address: [address] [place] [address] Performed By: #### 5 7021-8 #### [facility] [id number] [address] [place] [address] [place] Beta globulin Elph [Mass/Vol] 0.66 g/dL Normal 0.61-1.17 [facility] Comment on above: Order Comment: Speci men Type: BLOOD SPECIMEN Ordering Facility: [facility] Address: [address] [place] [address] Performed By: #### 5 7021-8 #### [facility] [id number] [address] [place] [address] [place] Gamma globulin Elph [Mass/Vol] 0.70 g/dL Normal 0.53-1.51 [facility] Comment on above: Order Comment: Speci men Type: BLOOD SPECIMEN Ordering Facility: [facility] Address: [address] [place] [address] Performed By: #### 5 7021-8 #### [facility] [id number] [address] [place] [address] [place] INTERPRETATION COMMENT FOR PROTEIN ELECTROPHORESIS The atypical region is relatively poorly defined and may represent an unusual presentation of polyclonal immunoglobulins, but cannot rule out the presence of a low level M protein. If clinically indicated, monoclonal protein analysis and serum free light chain analysis are suggested to evaluate further for monoclonal gammopathy. Normal [facility] Comment on above: Order Comment: Carlyi april Type: BLOOD SPECIMEN Ordering Facility: [facility] Address: [address] [place] [address] Performed By: #### 5 7021-8 #### [facility] [id number] [address] [place] [address] [place] M-PROTEIN LOCATION Normal [facility] Comment on above: Order Comment: Speci men Type: BLOOD SPECIMEN Ordering Facility: [facility] Address: [address] [place] [address] Result Comment: Not Applicable. Performed By: #### 5 7021-8 #### [facility] CLIA [id number] [address] [place] [address] [place] Protein Fractions [Interp] An atypical region of restricted mobility is identified on protein electrophoresis. Abnormal No definitive M protein is identified on protein electrophore sis. [facility] Comment on above: Order Comment: Speci men Type: BLOOD SPECIMEN Ordering Facility: [facility] Address: [address] [place] [address] Performed By: #### 5 7021-8 #### [facility] [id number] [address] [place] [address] [place] Protein.monoclonal Elph [Mass/Vol] 0.00 g/dL Normal <=0.00 [facility] Comment on above: Order Comment: Speci men Type: BLOOD SPECIMEN Ordering Facility: [facility] Address: [address] [place] [address] Performed By: #### 5 7021-8 #### [facility] [id number] [address] [place] [address] [place] SPE STAFF REVIEW Reviewed by Piedad Cardoso M.D., Ph.D Normal [facility] Comment on above: Order Comment: Speci men Type: BLOOD SPECIMEN Ordering Facility: [facility] Address: [address] [place] [address] Performed By: #### 5 7021-8 #### [facility] CLIA [id number] [address] [place] [address] [place] Prot SerPl-mCncon 11-04-2024 Protein [Mass/Vol] 6.1 g/dL Low 6.3-8.0 [facility] Comment on above: Order Comment: Speci men Type: BLOOD SPECIMEN Ordering Facility: [facility] Address: [address] [place] [address] Performed By: #### 5 7021-8 #### [facility] CLIA [id number] [address] [place] Cardiology Visit Reporton Cardiology Visit Report [facility] [address] [place] [id number] OFFICE VISIT Date of Service: 08/08/24 MR#: [id number] Acct: [id number] Name: RONNIE YARBROUGH Rep #: [id number] : 1950 Provider: Dr. Patsy Gamble MD Age/Sex: 74/M [place] [facility] Status: Signed HPI HPI History of Present Illness Details: This gentleman is here for follow-up visit. Denies any complaints. No chest pains. No shortness of breath. No orthopnea. No PND. Chronic lower extremity edema secondary to his DVTs. He wears compression stockings for it. Rarely feels lightheaded. No syncope or presyncope. His carvedilol on his last visit was increased to 25 mg twice daily. Event monitoring then showed up to 3-second pauses. Subsequently the carvedilol was decreased back to 12.5 mg twice daily. 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 Accompanied by: Is patient in pain?: No Allergies No Known Allergies Allergy (Unverified 08/08/24 13:01) Medications ???Medication ???Instructions ???Recorded ???Confirmed ???Type aspirin 81 mg tablet,delayed 81 mg PO DAILY Heart 01/05/23 08/08/24 History release calcium carb-ergocalciferol (vit 200 tab PO DAILY Supplment 01/05/23 08/08/24 History D2) 600 mg calcium-200 unit tablet cholecalciferol (vitamin D3) 50 50 mcg PO DAILY Supplement 01/05/23 08/08/24 History mcg (2,000 unit) tablet cyanocobalamin (vitamin B-12) 1,000 mcg PO DAILY Supplement 01/05/23 08/08/24 History 1,000 mcg capsule losartan 25 mg tablet 25 mg PO DAILY BP 01/05/23 08/08/24 History metformin 1,000 mg tablet 1,000 mg PO BID DM 01/05/23 08/08/24 History multivitamin 1 tab PO DAILY Supplement 01/05/23 08/08/24 History omeprazole 40 mg capsule,delayed 40 mg PO DAILY GERD 01/05/23 08/08/24 History release dulaglutide 1.5 mg/0.5 mL 1.5 mg subcut QWEEK DM 05/01/23 08/08/24 History subcutaneous pen injector (Trulicity) dapagliflozin propanediol 10 mg 10 mg PO DAILY 05/02/23 08/08/24 History tablet (Farxiga) fluticasone fur. 100 mcg-umeclid 1 inh inhalation DAILY 05/02/23 08/08/24 History 62.5 mcg-vilant 25 mcg inhalat.powder (Trelegy Ellipta) torsemide 20 mg tablet 20 mg PO DAILY 08/17/23 08/08/24 History atorvastatin 40 mg tablet 40 mg PO QDAY 03/06/24 08/08/24 History terbinafine HCl 250 mg tablet 250 mg PO DAILY Antifungal 03/06/24 08/08/24 History carvedilol 12.5 mg tablet 12.5 mg PO BID #180 tabs 04/02/24 08/08/24 Rx magnesium oxide 250 mg PO QDAY 08/08/24 08/08/24 History oxycodone-acetaminophen 5 mg-325 1 tab PO TID PRN 08/08/24 08/08/24 History mg tablet Ejection fraction %: 70 Have you fallen in the past year?: No PFS Medical History (Updated 08/08/24 @ 13:[address] Patsy Gamble MD) Joint infection of right wrist DVT of lower extremity, bilateral Abnormal ECG Paroxysmal atrial fibrillation Essential hypertension History of multiple myeloma GERD (gastroesophageal reflux disease) Rheumatoid arthritis Osteoarthritis Diabetes mellitus COPD (chronic obstructive pulmonary disease) Hyperlipidemia Debility Thoracic spinal stenosis Bone tumor Surgical History Hx of bilateral cataract extraction Hx of eye surgery History of total left knee replacement (TKR) ( 08/2023) History of tonsillectomy History of laminectomy History of carpal tunnel surgery of right wrist History of esophagogastroduodenoscopy History of colonoscopy History of bone marrow transplant History of total right knee replacement (TKR) History of reverse total replacement of right shoulder joint History of lumbar fusion Hx of fusion of cervical spine Family History Father Cancer, Onset Age: 52 Pancreatic cancer. Diabetes Sister Diabetes Grandmother Diabetes Social History household members: spouse Smoking Status: Former smoker quit date: 09/18/12 alcohol intake: current alcohol intake frequency: a few times a month substance use type: does not use caffeine: Yes Type: coffee Number of servings: 3 ROS Const Const: Negative for fatigue, weakness, headache(s) or weight gain ENT ENT: Negative for headache(s), dizziness, Nosebleed/epistaxis or balance problems Cardio Chest Pain: No Palpitations: No Edema: Bilateral Muscle aches with walking: None Resp Respiratory: Negative for SOB with activity, SOB at re (more content not included)... Normal [facility] 08-05-2024 [facility] Telephone (MARIVELWS) RONNIE YARBROUGH I ([id number]) 1950 M Date Time Provider Department 08/05/24 OVIDIO VINCENT During your visit today, we recorded the following information about you: Ovidio Vincent MD 08/05/2024 9:29 AM Signed Let patient now his iron levels are ok and his CBC does not show anemia. His CRP that Leslye had ordered also came back normal. Ramu Alanis MA 08/05/2024 9:40 AM Signed Left message for patient to contact office. FRANNY Mora Stephanie, RN 08/05/2024 9:42 AM Signed Patient notified of results. Patient verbalizes understanding. Jennie Delaney RN Allergies As of Date: 08/05/2024 (No Known Allergies) Date Reviewed: 07/02/2024 Reviewed by: Shey Amador MA - Fully Assessed Reason for Visit: Results [95] Prescriptions as of 08/05/2024 - dapagliflozin propanediol (FARXIGA) 10 mg tablet Take 1 tablet by mouth once daily. Take one daily in the morning - doxycycline monohydrate (MONODOX) 100 mg capsule TAKE 1 CAPSULE BY MOUTH TWICE DAILY FOR 28 DAYS - oxyCODONE IR (ROXICODONE) 5 mg immediate release tablet TAKE ONE-HALF TO ONE TABLET BY MOUTH EVERY 4 HOURS NEEDED FOR PAIN - amoxicillin-clavulanate potassium (AUGMENTIN) 875-125 mg per tablet Take 1 tablet by mouth every 12 hours. - losartan (COZAAR) 25 mg tablet Take 0.5 tablets by mouth once daily. - carvedilol (COREG) 6.25 mg tablet Take 2 tablets by mouth two times a day with meals. Per [facility] - atorvastatin (LIPITOR) 40 mg tablet Take 1 tablet by mouth once daily. - dulaglutide (TRULICITY) 3 mg/0.5 mL pen injector Inject 3 mg subcutaneously one time a week. Inject once per week. Discard Pen After - Magnesium Oxide 250 mg magnesium tab Take two in the AM and one in the PM. - metFORMIN (GLUCOPHAGE) 1,000 mg tablet Take 1 tablet by mouth two times a day with meals. - omeprazole (PRILOSEC) 40 mg capsule TAKE ONE CAPSULE BY MOUTH ONCE DAILY ON AN EMPTY STOMACH - torsemide (DEMADEX) 20 mg tablet Take 1 tablet by mouth two times a day. . - xhedhqidlcn-ajajsaecf-ocxnvk er (TRELEGY ELLIPTA) 100-62.5-25 mcg inhalation powder inhale 1 puff by mouth and INTO THE LUNGS once daily - aspirin, enteric coated (ASPIRIN, ENTERIC COATED) 81 mg EC tablet Take 1 tablet by mouth once daily. - Cholecalciferol, Vitamin D3, (VITAMIN D-3) 50 mcg (2,000 unit) cap Take 1 capsule by mouth once daily. - terbinafine HCl (LAMISIL) 250 mg tablet Take 1 tablet by mouth once daily. - cyanocobalamin (VITAMIN B-12) 1,000 mcg tab Take 1 tablet by mouth once daily. - Calcium-Cholecalciferol, D3, 600 mg-5 mcg (200 unit) cap Take 1 capsule by mouth once daily. Problem List As Of Date 08/05/2024 Noted Resolved Peripheral autonomic neuropathy in disorders cl*06/07/2005 Mixed hyperlipidemia [E78.2] 10/31/2006 Spinal stenosis, lumbar region, without neuroge*11/13/2006 GERD (gastroesophageal reflux disease) [K21.9] 12/27/2011 Tobacco abuse [Z72.0] 12/27/2011 10/01/2012 Special screening for malignant neoplasms, colo*09/06/2012 06/13/2018 Esophagitis, unspecified [K20.90] 09/25/2012 01/06/2014 Obesity, Class I, BMI 30-34.9 [E66.811] 10/01/2012 Venous insufficiency, peripheral [I87.2] 01/06/2014 11/25/2019 Acute bronchitis with chronic obstructive pulmo*12/30/2014 06/26/2017 Vitamin D deficiency [E55.9] 12/31/2014 Class 1 obesity due to excess calories with ser*06/26/2017 11/25/2019 Multiple myeloma (HCC) [C90.00] 11/28/2017 Adjustment insomnia [F51.02] 12/07/2017 05/14/2018 Multiple myeloma in remission (HCC) [C90.01] 12/07/2017 Leg DVT (deep venous thromboembolism), acute, l*01/02/2018 11/25/2019 Type 2 diabetes mellitus without complication, *04/12/2018 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, T38.0X5A]04/19/2018 05/14/2018 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] 06/13/2018 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/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 Bilateral lower extremity edema [R60.0] 06/13/2018 07/17/2018 Essential hypertension [I10] 06/13/2018 JOSE ENRIQUE (acute kidney injury) (HCC) [N17.9] 06/16/2018 06/18/2018 Hyperkalemia [E87.5] 06/18/2018 2018 Chemotherapy induced nausea and vomiting [R11.2*06/18/2018 07/02/2018 Difficulty coping [R45.89] 06/20/2018 06/26/2018 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) [D61.810]06/25/2018 Fall [W19.XXXA] 07/17/2018 11/25/2019 Acute on chronic systolic CHF (congestive heart*10/04/2019 11/25/2019 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 Normal [facility] Basic metabolic 2000 panelon 08-01-2024 Anion gap [Moles/Vol] 10 mmol/L Normal 8-15 [facility] Comment on above: Order Comment: Speci men Type: BLOOD SPECIMEN Ordering Facility: [facility] Address: [address] [place] [address] Performed By: #### 5 7021-8 #### [facility] CLIA [id number] [address] [place] [address] [place] Calcium [Mass/Vol] 9.6 mg/dL Normal 8.5-10.2 [facility] Comment on above: Order Comment: Speci men Type: BLOOD SPECIMEN Ordering Facility: [facility] Address: [address] [place] [address] Performed By: #### 5 7021-8 #### [facility] CLIA [id number] [address] [place] [address] [place] Chloride [Moles/Vol] 100 mmol/L Normal 98-107 [facility] Comment on above: Order Comment: Speci men Type: BLOOD SPECIMEN Ordering Facility: [facility] Address: [address] [place], [place] [id number] Performed By: #### 5 7021-8 #### [facility] CLIA [id number] [address] [place] [address] [place] CO2 [Moles/Vol] 26 mmol/L Normal 22-30 [facility] Comment on above: Order Comment: Speci men Type: BLOOD SPECIMEN Ordering Facility: [facility] Address: [address] [place] [address] Performed By: #### 5 7021-8 #### [facility] CLIA [id number] [address] [place] [address] [place] Creatinine [Mass/Vol] 1.06 mg/dL Normal 0.73-1.22 [facility] Comment on above: Order Comment: Speci men Type: BLOOD SPECIMEN Ordering Facility: [facility] Address: [address] [place] [address] Performed By: #### 5 7021-8 #### [facility] CLIA [id number] [address] [place] [address] [place] Creatinine and Glomerular filtration rate.predicted panel (S/P/Bld) 74 mL/min/1.73m??? Normal >=60 [facility] Comment on above: Order Comment: Speci men Type: BLOOD SPECIMEN Ordering Facility: [facility] Address: [address] [place] [address] Result Comment: Aleyda mated Glomerular Filtration Rate (eGFR) is calculated using the 2020 CKD-EPI creatinine equation. This equation utilizes serum creatinine, sex, and age as parameters. The creatinine assay has traceable calibration to isotope dilution-mass spectrometry. Refer to KDIGO guidelines for clinical interpretation. In patients with unstable renal function, e.g. those with acute kidney injury, the eGFR may not accurately reflect actual GFR. Performed By: #### 5 7021-8 #### [facility] CLIA [id number] [address] [place] [address] [place] Glucose [Mass/Vol] 121 mg/dL High 74-99 [facility] Comment on above: Order Comment: Jessi chen Type: BLOOD SPECIMEN Ordering Facility: [facility] Address: [address] [place] [address] Result Comment: The [place] [employer] (ADA) provides guidance for cutoff values for fasting glucose and random glucose. The ADA defines fasting as no caloric intake for at least 8 hours. Fasting plasma glucose results between 100 to 125 mg/dL indicate increased risk for diabetes (prediabetes). Fasting plasma glucose results greater than or equal to 126 mg/dL meet the criteria for diagnosis of diabetes. In the absence of unequivocal hyperglycemia, results should be confirmed by repeat testing. In a patient with classic symptoms of hyperglycemia or hyperglycemic crisis, random plasma glucose results greater than or equal to 200 mg/dL meet the criteria for diagnosis of diabetes. Reference: Standards of Medical Care in Diabetes 2016, [place] [employer]. Diabetes Care. 2016.39(Suppl 1). Performed By: #### 5 7021-8 #### [facility] CLIA [id number] [address] [place] [address] [place] Potassium [Moles/Vol] 4.4 mmol/L Normal 3.7-5.1 [facility] Comment on above: Order Comment: Jessi chen Type: BLOOD SPECIMEN Ordering Facility: [facility] Address: [address] [place] [address] Performed By: #### 5 7021-8 #### [facility] CLIA [id number] [address] [place] [address] [place] Sodium [Moles/Vol] 136 mmol/L Normal 136-144 [facility] Comment on above: Order Comment: Speci men Type: BLOOD SPECIMEN Ordering Facility: [facility] Address: [address] [place] [address] Performed By: #### 5 7021-8 #### [facility] CLIA [id number] [address] [place] [address] [place] Urea nitrogen [Mass/Vol] 31 mg/dL High 9-24 [facility] Comment on above: Order Comment: Speci men Type: BLOOD SPECIMEN Ordering Facility: [facility] Address: [address] [place] [address] Performed By: #### 5 7021-8 #### [facility] CLIA [id number] [address] [place] [address] [place] CBC W Auto Differential pane l (Bld)on 08-01-2024 Basophils (Bld) [#/Vol] 10*3/uL Normal <0.11 [facility] Comment on above: Order Comment: Speci men Type: BLOOD SPECIMEN Ordering Facility: [facility] Address: [address] [place] [address] Performed By: #### 5 7021-8 #### [facility] CLIA [id number] [address] [place] [address] [place] Basophils/100 WBC (Bld) 0.2 % Normal [facility] Comment on above: Order Comment: Speci men Type: BLOOD SPECIMEN Ordering Facility: [facility] Address: [address] [place] [address] Performed By: #### 5 7021-8 #### [facility] CLIA [id number] [address] [place] [address] [place] Differential cell count method Nom (Bld) Auto Normal [facility] Comment on above: Order Comment: Speci men Type: BLOOD SPECIMEN Ordering Facility: [facility] Address: [address] [place] [address] Performed By: #### 5 7021-8 #### [facility] CLIA [id number] [address] [place] [address] [place] Eosinophils (Bld) [#/Vol] 0.03 10*3/uL Normal <0.46 [facility] Comment on above: Order Comment: Speci men Type: BLOOD SPECIMEN Ordering Facility: [facility] Address: [address] [place] [address] Performed By: #### 5 7021-8 #### [facility] CLIA [id number] [address] [place] [address] [place] Eosinophils/100 WBC (Bld) 0.5 % Normal [facility] Comment on above: Order Comment: Speci men Type: BLOOD SPECIMEN Ordering Facility: [facility] Address: [address] [place] [address] Performed By: #### 5 7021-8 #### [facility] CLIA [id number] [address] [place] [address] [place] Erythrocyte distribution width (RBC) [Ratio] 16.3 % High 11.5-15.0 [facility] Comment on above: Order Comment: Speci men Type: BLOOD SPECIMEN Ordering Facility: [facility] Address: [address] [place] [address] Performed By: #### 5 7021-8 #### [facility] CLIA [id number] [address] [place] [address] [place] Hematocrit (Bld) [Volume fraction] 41.7 % Normal 39.0-51.0 [facility] Comment on above: Order Comment: Speci men Type: BLOOD SPECIMEN Ordering Facility: [facility] Address: [address] [place] [address] Performed By: #### 5 7021-8 #### [facility] CLIA [id number] [address] [place] [address] [place] Hemoglobin (Bld) [Mass/Vol] 13.1 g/dL Normal 13.0-17.0 [facility] Comment on above: Order Comment: Speci men Type: BLOOD SPECIMEN Ordering Facility: [facility] Address: [address] [place] [address] Performed By: #### 5 7021-8 #### [facility] CLIA [id number] [address] [place] [address] [place] Immature granulocytes (Bld) [#/Vol] 0.04 10*3/uL Normal <0.10 [facility] Comment on above: Order Comment: Speci men Type: BLOOD SPECIMEN Ordering Facility: [facility] Address: [address] [place] [address] Performed By: #### 5 7021-8 #### [facility] CLIA [id number] [address] [place] [address] [place] Immature granulocytes/100 WBC (Bld) 0.7 % Normal [facility] Comment on above: Order Comment: Speci men Type: BLOOD SPECIMEN Ordering Facility: [facility] Address: [address] [place] [address] Performed By: #### 5 7021-8 #### [facility] CLIA [id number] [address] [place] [address] [place] Lymphocytes (Bld) [#/Vol] 0.81 10*3/uL Low 1.00-4.00 [facility] Comment on above: Order Comment: Speci men Type: BLOOD SPECIMEN Ordering Facility: [facility] Address: [address] [place] [address] Performed By: #### 5 7021-8 #### [facility] CLIA [id number] [address] [place] [address] [place] Lymphocytes/100 WBC (Bld) 14.7 % Normal [facility] Comment on above: Order Comment: Speci men Type: BLOOD SPECIMEN Ordering Facility: [facility] Address: [address] [place] [address] Performed By: #### 5 7021-8 #### [facility] CLIA [id number] [address] [place] [address] [place] MCH (RBC) [Entitic mass] 25.8 pg Low 26.0-34.0 [facility] Comment on above: Order Comment: Speci men Type: BLOOD SPECIMEN Ordering Facility: [facility] Address: [address] [place] [address] Performed By: #### 5 7021-8 #### [facility] CLIA [id number] [address] [place] [address] [place] MCHC (RBC) [Mass/Vol] 31.4 g/dL Normal 30.5-36.0 [facility] Comment on above: Order Comment: Speci men Type: BLOOD SPECIMEN Ordering Facility: [facility] Address: [address] [place] [address] Performed By: #### 5 7021-8 #### [facility] CLIA [id number] [address] [place] [address] [place] MCV (RBC) [Entitic vol] 82.1 fL Normal 80.0-100.0 [facility] Comment on above: Order Comment: Speci men Type: BLOOD SPECIMEN Ordering Facility: [facility] Address: [address] [place] [address] Performed By: #### 5 7021-8 #### [facility] CLIA [id number] [address] [place] [address] [place] Monocytes (Bld) [#/Vol] 0.34 10*3/uL Normal <0.87 [facility] Comment on above: Order Comment: Speci men Type: BLOOD SPECIMEN Ordering Facility: [facility] Address: [address] [place] [address] Performed By: #### 5 7021-8 #### [facility] CLIA [id number] [address] [place] [address] [place] Monocytes/100 WBC (Bld) 6.2 % Normal [facility] Comment on above: Order Comment: Speci men Type: BLOOD SPECIMEN Ordering Facility: [facility] Address: [address] [place] [address] Performed By: #### 5 7021-8 #### [facility] CLIA [id number] [address] [place] [address] [place] Neutrophils (Bld) [#/Vol] 4.29 10*3/uL Normal 1.45-7.50 [facility] Comment on above: Order Comment: Speci men Type: BLOOD SPECIMEN Ordering Facility: [facility] Address: [address] [place] [address] Performed By: #### 5 7021-8 #### [facility] CLIA [id number] [address] [place] [address] [place] Neutrophils/100 WBC (Bld) 77.7 % Normal [facility] Comment on above: Order Comment: Speci men Type: BLOOD SPECIMEN Ordering Facility: [facility] Address: [address] [place] [address] Performed By: #### 5 7021-8 #### [facility] CLIA [id number] [address] [place] [address] [place] Nucleated RBC (Bld) [#/Vol] 10*3/uL Normal <0.01 [facility] Comment on above: Order Comment: Speci men Type: BLOOD SPECIMEN Ordering Facility: [facility] Address: [address] [place] [address] Performed By: #### 5 7021-8 #### [facility] CLIA [id number] [address] [place] [address] [place] Nucleated RBC/100 WBC (Bld) [Ratio] 0.0 /100 WBC Normal [facility] Comment on above: Order Comment: Speci men Type: BLOOD SPECIMEN Ordering Facility: [facility] Address: [address] [place], [place] [id number] Performed By: #### 5 7021-8 #### [facility] CLIA [id number] [address] [place] [address] [place] Platelet mean volume (Bld) [Entitic vol] 9.8 fL Normal 9.0-12.7 [facility] Comment on above: Order Comment: Speci men Type: BLOOD SPECIMEN Ordering Facility: [facility] Address: [address] [place] [address] Performed By: #### 5 7021-8 #### [facility] CLIA [id number] [address] [place] [address] [place] Platelets (Bld) [#/Vol] 189 10*3/uL Normal 150-400 [facility] Comment on above: Order Comment: Speci men Type: BLOOD SPECIMEN Ordering Facility: [facility] Address: [address] [place] [address] Performed By: #### 5 7021-8 #### [facility] CLIA [id number] [address] [place] [address] [place] RBC (Bld) [#/Vol] 5.08 10*6/uL Normal 4.20-6.00 [facility] Comment on above: Order Comment: Speci men Type: BLOOD SPECIMEN Ordering Facility: [facility] Address: [address] [place] [address] Performed By: #### 5 7021-8 #### [facility] CLIA [id number] [address] [place] [address] [place] WBC (Bld) [#/Vol] 5.52 10*3/uL Normal 3.70-11.00 [facility] Comment on above: Order Comment: Speci men Type: BLOOD SPECIMEN Ordering Facility: [facility] Address: [address] [place] [address] Performed By: #### 5 7021-8 #### [facility] CLIA [id number] [address] [place] [address] [place] CRP SerPl-mCncon 08-01-2024 CRP [Mass/Vol] 0.8 mg/dL Normal <0.9 [facility] Comment on above: Order Comment: Speci men Type: BLOOD SPECIMEN Ordering Facility: [facility] Address: [address] [place] [address] Performed By: #### I FESC #### [facility] [facility] CLIA [id number] [address] [place] [address] [place] Ferritin SerPl-mCncon 2023 Ferritin [Mass/Vol] 31.0 ng/mL Normal 30.3-565.7 [facility] Comment on above: Order Comment: Speci men Type: BLOOD SPECIMEN Ordering Facility: [facility] Address: [address] [place] [address] Performed By: #### I FESC #### [facility] CLIA [id number] [address] [place] [address] [place] IMMUNOFIXATION SCREEN, SERUM on 08-01-2024 MPA RESULT No M protein is identified. Normal No M protein is identified. [facility] Comment on above: Order Comment: Speci men Type: BLOOD SPECIMEN Ordering Facility: [facility] Address: [address] [place] [address] Performed By: #### I FESC #### [facility] CLIA [id number] [address] [place] [address] [place] STAFF REVIEW (MPA) Reviewed by Dr. Candy De La Cruz MD [facility] Comment on above: Order Comment: Speci men Type: BLOOD SPECIMEN Ordering Facility: [facility] Address: [address] [place] [address] Performed By: #### I FESC #### [facility] CLIA [id number] [address] [place] [address] [place] IMMUNOGLOBULINS,IGG,IGA,IGMo n 08-01-2024 IgA [Mass/Vol] 67 mg/dL Low 70-400 [facility] Comment on above: Order Comment: Speci men Type: BLOOD SPECIMEN Ordering Facility: [facility] Address: [address] [place] [address] Performed By: #### 5 7021-8 #### [facility] CLIA [id number] [address] [place] [address] [place] IgG [Mass/Vol] 771 mg/dL Normal 700-1600 [facility] Comment on above: Order Comment: Speci men Type: BLOOD SPECIMEN Ordering Facility: [facility] Address: [address] [place] [address] Performed By: #### 5 7021-8 #### [facility] CLIA [id number] [address] [place] [address] [place] IgM [Mass/Vol] 74 mg/dL Normal 40-230 [facility] Comment on above: Order Comment: Speci men Type: BLOOD SPECIMEN Ordering Facility: [facility] Address: [address] [place] [address] Performed By: #### 5 7021-8 #### [facility] CLIA [id number] [address] [place] [address] [place] Iron and Iron binding capaci ty panelon 08-01-2024 Iron [Mass/Vol] 46 ug/dL Normal 41-186 [facility] Comment on above: Order Comment: Speci men Type: BLOOD SPECIMEN Ordering Facility: [facility] Address: [address] [place] [address] Performed By: #### I FESC #### [facility] CLIA [id number] [address] [place] [address] [place] Iron binding capacity [Mass/Vol] 255 ug/dL Normal 232-386 [facility] Comment on above: Order Comment: Speci men Type: BLOOD SPECIMEN Ordering Facility: [facility] Address: [address] [place] [address] Performed By: #### I FESC #### [facility] CLIA [id number] [address] [place] [address] [place] Iron/TIBC [Molar ratio] 18.0 % Normal 15.0-57.0 [facility] Comment on above: Order Comment: Speci men Type: BLOOD SPECIMEN Ordering Facility: [facility] Address: [address] [place] [address] Performed By: #### I FESC #### [facility] CLIA [id number] [address] [place] [address] [place] KAPPA/PHAN,FREE,SERon 2023 Immunoglobulin light chains.kappa.free (S) [Mass/Vol] 24.3 mg/L High 3.3-19.4 [facility] Comment on above: Order Comment: Speci men Type: BLOOD SPECIMENOrdering Facility: [facility] Address: [address] [place] [address] Result Comment: Rare ly, increased serum free light chains levels may not be detected or accurately quantified due to prozone phenomenon or in high viscosity samples using this immunoturbidimetric assay. Correlation with other laboratory results and clinical findings is recommended. The Bootjack Free Light Chain was performed using the Binding Site Optilite immunoturbidimetric method. Result obtained with different assay methods or kits cannot be used interchangeably. Performed By: #### K LFRS ####[facility] [id number] [place] [address] [place] Immunoglobulin light chains.kappa/Immunog lobulin light chains.lambda (S) [Mass ratio] 1.37 Normal 0.26-1.65 [facility] Comment on above: Order Comment: Speci men Type: BLOOD SPECIMENOrdering Facility: [facility] Address: [address] [place] [address] Performed By: #### K LFRS ####[facility] [id number] [place] [address] [place] Immunoglobulin light chains.lambda.free [Mass/Vol] 17.7 mg/L Normal 5.7-26.3 [facility] Comment on above: Order Comment: Speci men Type: BLOOD SPECIMENOrdering Facility: [facility] Address: [address] [place] [address] Result Comment: Rare ly, increased serum free light chains levels may not be detected or accurately quantified due to prozone phenomenon or in high viscosity samples using this immunoturbidimetric assay. Correlation with other laboratory results and clinical findings is recommended. The Lambda Free Light Chain was performed using the Binding Site Optilite immunoturbidimetric method. Result obtained with different assay methods or kits cannot be used interchangeably. Performed By: #### K LFRS ####[facility] [id number] [place] [address] [place] PROTEIN ELECTROPHORESIS SERU M (P)on 08-01-2024 Albumin [Mass/Vol] 3.97 g/dL Normal 3.43-5.41 [facility] Comment on above: Order Comment: Speci men Type: BLOOD SPECIMENOrdering Facility: [facility] Address: [address] [place] [address] Performed By: #### L [id number] ####[facility] [id number] [place] [address] [place] Alpha 1 globulin Elph [Mass/Vol] 0.31 g/dL Normal 0.18-0.43 [facility] Comment on above: Order Comment: Speci men Type: BLOOD SPECIMENOrdering Facility: [facility] Address: [address] [place] [address] Performed By: #### L [id number] ####[facility] [id number] [place] [address] [place] Alpha 2 globulin Elph [Mass/Vol] 0.74 g/dL Normal 0.42-0.98 [facility] Comment on above: Order Comment: Speci men Type: BLOOD SPECIMENOrdering Facility: [facility] Address: [address] [place] [address] Performed By: #### L [id number] ####[facility] [id number] [place] [address] [place] Beta globulin Elph [Mass/Vol] 0.70 g/dL Normal 0.61-1.17 [facility] Comment on above: Order Comment: Speci men Type: BLOOD SPECIMENOrdering Facility: [facility] Address: [address] [place] [address] Performed By: #### L [id number] ####[facility] [id number] [address] [place] Gamma globulin Elph [Mass/Vol] 0.68 g/dL Normal 0.53-1.51 [facility] Comment on above: Order Comment: Speci men Type: BLOOD SPECIMENOrdering Facility: [facility] Address: [address] [place] [address] Performed By: #### L [id number] ####[facility] [id number] [place] [address] [place] M-PROTEIN LOCATION Normal [facility] Comment on above: Order Comment: Speci men Type: BLOOD SPECIMENOrdering Facility: [facility] Address: [address] [place] [address] Result Comment: Not Applicable. Performed By: #### L [id number] ####[facility] [id number] [place] [address] [place] Protein Fractions [Interp] No definitive M protein is identified on protein electrophoresis. Normal No definitive M protein is identified on protein electrophore sis. [facility] Comment on above: Order Comment: Speci men Type: BLOOD SPECIMENOrdering Facility: [facility] Address: [address] [place] [address] Performed By: #### L [id number] ####[facility] [id number] [place] [address] [place] Protein.monoclonal Elph [Mass/Vol] 0.00 g/dL Normal <=0.00 [facility] Comment on above: Order Comment: Speci men Type: BLOOD SPECIMENOrdering Facility: [facility] Address: [address] [place] [address] Performed By: #### L [id number] ####[facility] [id number] [address] [place] SPE STAFF REVIEW Reviewed by Dr. Candy De La Cruz MD [facility] Comment on above: Order Comment: Speci men Type: BLOOD SPECIMENOrdering Facility: [facility] Address: [address] [place] [address] Performed By: #### L [id number] ####[facility] [id number] [address] [place] PVR ANK PRESS ALESSANDRA VAS LABon 08-01-2024 PVR ANK [facility] Non-Invasive [facility] Lower Extremity Arterial Physiology Study Bilateral/Complete Date of service/time: 08/01/2024 8:07:39 AM Name: MR. RONNIE YARBROUGH Date of : 1950 Age: 74 years Gender: M Clinical Indication Decreased pulses. TECHNIQUE -------- An arterial physiological examination was performed, including measurement of blood pressures using continuous wave Doppler and recording of plethysmographic with or without Doppler waveforms at the below-mentioned limb segments. FINDINGS -------- RIGHT SIDE AT REST Right Doppler Waveforms Dorsalis pedis: Multiphasic. Post tibial: Multiphasic. Right Pressures Brachial: 107 mmHg Ankle dorsalis pedis: 146 mmHg NAYE: 1.36 Partially non-compressible arteries. Ankle posterior tibial: 149 mmHg NAYE: 1.39 Partially non-compressible arteries. Digit: 121 mmHg Right PVR Waveforms Ankle: Normal. Digit: Mildly dampened. LEFT SIDE AT REST Left Doppler Waveforms Dorsalis pedis: Multiphasic. Post tibial: Multiphasic. Left Pressures Brachial: 105 mmHg Ankle dorsalis pedis: 154 mmHg NAYE: 1.44 Partially non-compressible arteries. Ankle posterior tibial: 158 mmHg NAYE: 1.48 Partially non-compressible arteries. Digit: 103 mmHg Left PVR Waveforms Ankle: Normal. Digit: Mildly dampened. IMPRESSION Compared to prior study of 10/07/2021, Remains normal waveforms and normal TBI. RIGHT SIDE Resting right ankle brachial index: 1.39 Partially non-compressible arteries, NAYE not accurate. Right toe brachial index: 1.13 Non-compressible vessels, results called by PVR tracings. Normal toe brachial index at rest in the right leg. Right ankle: Normal at rest. LEFT SIDE Resting left ankle brachial index: 1.48 Partially non-compressible arteries, NAYE not accurate. Left toe brachial index: 0.96 Non-compressible vessels, results called by PVR tracings. Normal toe brachial index at rest in the left leg. Left ankle: Normal at rest. Technologist: Rufina Swartz RVT [facility] Ordering physician: ESVIN MARCUS Interpreting physician: TAYLOR Shaikh DO Final CC [employer] [facility] Image : [id number] [email or web address] See Link below for Image Normal [facility] Prot SerPl-mCncon 08-01-2024 Protein [Mass/Vol] 6.4 g/dL Normal 6.3-8.0 [facility] Comment on above: Order Comment: Speci men Type: BLOOD SPECIMEN Ordering Facility: [facility] Address: [address] [place] [address] Performed By: #### I [facility] #### [facility] CLIA [id number] [address] [id number] [place] CNOVon 07-02-2024 CNOV Office Visit (PODIWS ) RONNIE YARBROUGH Trino ([id number]) 1950 M Date Time Provider Department 07/02/24 8:30 AM ESVIN MARCUS PODIWS During your visit today, we recorded the following information about you: Esvin Marcus 07/02/2024 9:12 AM Signed Last saw pcp: 05/30/24 Subjective: This 74 year old male presents to clinic for diabetic foot check. Patient has the following complaints: dystropphic teonails. Patient admits to being diabetic for 10 years now. Patient +B/T/N in feet at this time. Patient -pain in legs when walking. No other pedal complaints at this time. No change in medications or medical history since last visit. PAIN EVALUATION No data found in the last 1 encounters. 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 Day: +12; Engrafted Protocol(s): 3422 1C Preparative regimen: melphalan Mobilization regimen: neupogen and plerixafor Stem cell source: apheresis CD34 cell dose (x10e6/kg): 5.14 Date of transplant: 06/15/2018 Bilateral leg edema 09/30/2022 Cancer of the skin, 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 Cervical spondylosis without myelopathy Chronic renal failure, stage 3a ([facility]) 03/30/2023 COPD (chronic obstructive pulmonary disease) ([facility]) 03/15/2021 Diabetic eye exam ([facility]) 09/09/2021 Last done 09/09/[address] Juve Reza Dilated aortic root ([facility]) 06/04/2023 Seeing [facility] Discoloration and thickening of nails both feet 10/06/2021 ED (erectile dysfunction) of organic origin 07/04/2022 Enlarged LA (left atrium) 06/04/2023 Seeing [facility] Essential hypertension 06/13/2018 -On lisinopril 10mg daily ( home med) -Will d/c for now given hyperkalemia . 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 --ppx ACV and cipro Increased weakness when ambulating 12/16/2022 Inflammatory polyarthropathy ([facility]) Leg DVT (deep venous thromboembolism), acute, left ([facility]) 01/02/2018 --acute DVT gastrocnemius found 12/13/2017 --continue apixaban till platelets <50K, last dose 06/21/2018 Living will on file at physician's office 09/30/2022 DPA: BREN () Low serum vitamin B12 04/22/2021 Lumbar spinal stenosis Medicare annual wellness visit, subsequent 10/06/2021 Medicare part B: Not able to find, Last done: 10/06/2021 Mixed hyperlipidemia 10/31/2006 --will hold atorvastatin d/t interactions with chemotherapy can resume at discharge Multiple myeloma ([facility]) 11/28/2017 Multiple myeloma in remission ([facility]) Obesity, Class I, BMI 30-34.9 10/01/2012 Osteoarthritis of both hands Pancytopenia due to chemotherapy ([facility]) 06/25/2018 --Transfuse PRBC and platelets per protocol --GCSF Peripheral autonomic neuropathy in disorders classified elsewhere 06/07/2005 Pulmonary hypertension, unspecified ([facility]) 10/23/2019 Spinal stenosis, lumbar region, without neurogenic claudication 11/13/2006 Tobacco abuse 12/27/2011 Quit 2012 Type 2 diabetes mellitus without complication, without long-term current use of insulin ([facility]) 04/12/2018 Venous insufficiency, peripheral 01/06/2014 Vitamin D deficiency 12/31/2014 Weakness of both lower extremities 12/16/2022 Current Outpatient Medications Medication Sig oxyCODONE IR (ROXICODONE) 5 mg immediate release tablet TAKE ONE-HALF TO ONE TABLET BY MOUTH EVERY 4 HOURS NEEDED FOR PAIN losartan (COZAAR) 25 mg tablet Take 0.5 tablets by mouth once daily. carvedilol (COREG) 6.25 mg tablet Take 2 tablets by mouth two times a day with meals. Per [facility] atorvastatin (LIPITOR) 40 mg tablet Take 1 tablet by mouth once daily. dulaglutide (TRULICITY) 3 mg/0.5 mL pen injector Inject 3 mg subcutaneously one time a week. Inject once per week. Discard Pen After Magnesium Oxide 250 mg magnesium tab Take two in the AM and one in the PM. metFORMIN (GLUCOPHAGE) 1,000 mg tablet Take 1 tablet by mouth two times a day with meals. omeprazole (PRILOSEC) 40 mg capsule TAKE ONE CAPSULE BY MOUTH ONCE DAILY ON AN EMPTY STOMACH torsemide (DEMADEX) 20 mg tablet Take 1 tablet by mouth two times a day. . dapagliflozin propanediol (FARXIGA) 10 mg tablet Ta (more content not included)... Normal [facility] Dion 06-26-2024 KELLEYN Telephone (FAMPWS) RONNIE YARBROUGH I ([id number]) 1950 M Date Time Provider Department 06/26/24 LESLYE WINTER During your visit today, we recorded the following information about you: Leslye Winter PA-C 06/26/2024 8:50 AM Addendum Please find out when patient is back in [place]. The infectious disease specialist just got back to me yesterday. They do not need to see him. It looks like they already cancelled the appointment. If still taking atb, can stop. I would like to get repeat labs once they are in [place]. Thanks. SPENCER Hilario Amanda, RN 06/26/2024 9:52 AM Signed Pt called and is notified of providers results and instructions. Pt voices understanding. He states they are back in [place], and he will come in to get lab work done. Chanelle Nolan RN Allergies As of Date: 06/26/2024 (No Known Allergies) Date Reviewed: 05/30/2024 Reviewed by: Ovidio Vincent MD - Fully Assessed Reason for Visit: Patient Update [1234] Primary Visit Diagnosis:Pseudogout [M11.20] Order(s):C-REACTIVE PROTEIN [SQCRP] Order #: [id number] FUTURE Prescriptions as of 06/26/2024 - doxycycline monohydrate (MONODOX) 100 mg capsule TAKE 1 CAPSULE BY MOUTH TWICE DAILY FOR 28 DAYS - oxyCODONE IR (ROXICODONE) 5 mg immediate release tablet TAKE ONE-HALF TO ONE TABLET BY MOUTH EVERY 4 HOURS NEEDED FOR PAIN - amoxicillin-clavulanate potassium (AUGMENTIN) 875-125 mg per tablet Take 1 tablet by mouth every 12 hours. - losartan (COZAAR) 25 mg tablet Take 0.5 tablets by mouth once daily. - carvedilol (COREG) 6.25 mg tablet Take 2 tablets by mouth two times a day with meals. Per [facility] - atorvastatin (LIPITOR) 40 mg tablet Take 1 tablet by mouth once daily. - dulaglutide (TRULICITY) 3 mg/0.5 mL pen injector Inject 3 mg subcutaneously one time a week. Inject once per week. Discard Pen After - Magnesium Oxide 250 mg magnesium tab Take two in the AM and one in the PM. - metFORMIN (GLUCOPHAGE) 1,000 mg tablet Take 1 tablet by mouth two times a day with meals. - omeprazole (PRILOSEC) 40 mg capsule TAKE ONE CAPSULE BY MOUTH ONCE DAILY ON AN EMPTY STOMACH - torsemide (DEMADEX) 20 mg tablet Take 1 tablet by mouth two times a day. . - dapagliflozin propanediol (FARXIGA) 10 mg tablet Take 1 tablet by mouth once daily. Take one daily in the morning - zxotusxmzeo-bahtvqnsz-qcxmhf er (TRELEGY ELLIPTA) 100-62.5-25 mcg inhalation powder inhale 1 puff by mouth and INTO THE LUNGS once daily - aspirin, enteric coated (ASPIRIN, ENTERIC COATED) 81 mg EC tablet Take 1 tablet by mouth once daily. - Cholecalciferol, Vitamin D3, (VITAMIN D-3) 50 mcg (2,000 unit) cap Take 1 capsule by mouth once daily. - terbinafine HCl (LAMISIL) 250 mg tablet Take 1 tablet by mouth once daily. - cyanocobalamin (VITAMIN B-12) 1,000 mcg tab Take 1 tablet by mouth once daily. - Calcium-Cholecalciferol, D3, 600 mg-5 mcg (200 unit) cap Take 1 capsule by mouth once daily. Problem List As Of Date 06/26/2024 Noted Resolved Peripheral autonomic neuropathy in disorders cl*06/07/2005 Mixed hyperlipidemia [E78.2] 10/31/2006 Spinal stenosis, lumbar region, without neuroge*11/13/2006 GERD (gastroesophageal reflux disease) [K21.9] 12/27/2011 Tobacco abuse [Z72.0] 12/27/2011 10/01/2012 Special screening for malignant neoplasms, colo*09/06/2012 06/13/2018 Esophagitis, unspecified [K20.90] 09/25/2012 01/06/2014 Obesity, Class I, BMI 30-34.9 [E66.811] 10/01/2012 Venous insufficiency, peripheral [I87.2] 01/06/2014 11/25/2019 Acute bronchitis with chronic obstructive pulmo*12/30/2014 06/26/2017 Vitamin D deficiency [E55.9] 12/31/2014 Class 1 obesity due to excess calories with ser*06/26/2017 11/25/2019 Multiple myeloma (HCC) [C90.00] 11/28/2017 Adjustment insomnia [F51.02] 12/07/2017 05/14/2018 Multiple myeloma in remission (HCC) [C90.01] 12/07/2017 Leg DVT (deep venous thromboembolism), acute, l*01/02/2018 11/25/2019 Type 2 diabetes mellitus without complication, *04/12/2018 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, T38.0X5A]04/19/2018 05/14/2018 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] 06/13/2018 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/13/2018 Bilateral lower extremity edema [R60.0] 06/13/2018 07/17/2018 Essential hypertension [I10] 06/13/2018 JOSE ENRIQUE (acute kidney injury) (HCC) [N17.9] 06/16/2018 06/18/2018 Hyperkalemia [E87.5] 06/18/2018 2018 Chemotherapy induced nausea and vomiting [R11.2*06/18/2018 07/02/2018 Difficulty coping [R45.89] 06/20/2018 06/26/2018 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) [D61.810]06/25/2018 Fall [W19.XXXA] 07/17/2018 11/25/2019 Acute on chronic systolic CHF (congestive heart*10/04/2019 11/25/2019 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] 10/04/2019 Shortness of breath [R06.02] 10/22/2019 11/25/2019 Chest pressure [R07.89] 10/23/2019 11/25/2019 Pulmo (more content not included)... Normal [facility] CNOVon 05-30-2024 CNOV Office Visit (FAMPWS ) RONNIE YARBROUGH I ([id number]) 1950 M Date Time Provider Department 05/30/24 9:20 AM OVIDIO VINCENTWS During your visit today, we recorded the following information about you: Pulse Blood pressure Weight Height 89/minute 119/66 96.2 kg 1.772 m Ovidio Vincent MD 05/30/2024 1:37 PM Signed Ronnie Yarbrough is a 73 year old male here for a Medicare wellness visit. Medicare Health Risk Assessment General Health Good Exercise: Minutes/Day 30 min Exercise: Days/Week 5 days Alcohol: Daily Use Monthly or less Alcohol: Drinks/Day Patient does not drink Alcohol: 6 or more drinks Never Feel off balance Yes Concerns: Teeth/Dentures No Concerns: Sexual function No Troubled by feelings None of the above Frequency: Eating healthy diet More than half the days ADLs requiring help None of the above Safety precautions in home/vehicle Yes Smoke, vape, chews tobacco No Difficulty hearing Yes Difficulty seeing No Current Providers Specialists: I have reviewed specialist-related care of the patient in the medical record. 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 Ward[facility] Medical/Family history review Reviewed and updated problem list, medical/surgical/family/soci al history, medications, and allergies. Opioid use review Opioid Medications (last 90 days) 05/15/2024 00:00 Opioid Medications oxycodone HCl TAKE ONE-HALF TO ONE TABLET BY MOUTH EVERY 4 HOURS NEEDED FOR PAIN (5 mg tab) Details Patient-reported medication Prescribed No opioid use on file in the last 90 days Does patient have risk factors for opioid abuse? No Pain overview Current pain concerns and treatment plan reviewed. Patient under the care of a specialist. Anxiety/Depression screening Recommendation: no further intervention at this time Cognitive screening Mini Cog Score: 4 Cognitive screening reviewed and No further action needed (score 3-5). Functional Observation Was the patient's Timed Up AND Go test unsteady or ? 12 seconds? No Advance Care Planning Surrogate decision maker documented and/or advance directives scanned in chart Measurements BP 119/66 Pulse 89 Ht 177.2 cm (5' 9.75) Wt 96.2 kg (212 lb) BMI 30.64 kg/m? Vision Screening: Follows with optometry/ophthalmology Assessment/Plan Medicare annual wellness visit, subsequent (Z00.00) - Counseled on healthy diet and regular exercise - Fall avoidance information provided - Personalized prevention plan provided See Below Chief Complaint Patient presents with: Medicare Wellness Exam HPI Ronnie Yarbrough is a 73 year old male who presents here today for Chronic Medical Conditions. and Medicare Annual Visit. Patient with hx of HTN, hyperlipidemia, COPD, neuropathy, DM2, GERD, recent DVT, paroxysmal A. Fib (seeing cardio) and those as below. Patient did have a recent hospital stay for septic arthritis of right elbow and wrist. Info has been sent to ID to determine if patient needs to even continue antibiotics since all cultures came back negative. Patient sees Dr. Ward in Pulmonary last visit 05/27/2024 Patient sees Hematology last visit 04/2024 Patient sees [facility] last visit 02/2024 Past medical history, appointments, medications, allergies reviewed. Previous Medical History PAST MEDICAL HISTORY 02/24/2023: Acute thromboembolism of deep veins of both lower extremities (HCC) Comment: Eliquis started 02/2023, can stop 08/202309/30/2022: Advance directive discussed with patient Comment: Discussed 09/2022: up to date 03/15/2021: Allergic rhinitis 12/16/2022: At high risk for falls 06/13/2018: 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HCC) Comment: Day: +12; Engrafted Protocol(s): 3422 1C Preparative regimen: melphalan Mobilization regimen: neupogen and plerixafor Stem cell source: apheresis CD34 cell dose (x10e6/kg): 5.14 Date of transplant: 06/15/2018 09/30/2022: Bilateral leg edema 04/21/2021: Cancer of the skin, 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 Normal [facility] CNPNon 05-29-2024 CNPN Telephone (FAMPWS) RONNIE YARBROUGH I ([id number]) 1950 M Date Time Provider Department 05/29/24 [facility] During your visit today, we recorded the following information about you: Ovidio Vincent MD 05/29/2024 12:55 PM Signed Let patient know the MRI of his brain was normal with some expected normal age related changes. Ramu Alanis MA 05/29/2024 1:22 PM Signed Patient notified and voiced understanding. Ramu Alanis MA Allergies As of Date: 05/29/2024 (No Known Allergies) Date Reviewed: 05/27/2024 Reviewed by: Hayde Ward MD - Fully Assessed Reason for Visit: Results [95] Prescriptions as of 05/29/2024 - doxycycline monohydrate (MONODOX) 100 mg capsule TAKE 1 CAPSULE BY MOUTH TWICE DAILY FOR 28 DAYS - oxyCODONE IR (ROXICODONE) 5 mg immediate release tablet TAKE ONE-HALF TO ONE TABLET BY MOUTH EVERY 4 HOURS NEEDED FOR PAIN - amoxicillin-clavulanate potassium (AUGMENTIN) 875-125 mg per tablet Take 1 tablet by mouth every 12 hours. - losartan (COZAAR) 25 mg tablet Take 0.5 tablets by mouth once daily. - carvedilol (COREG) 6.25 mg tablet Take 2 tablets by mouth two times a day with meals. Per [facility] - atorvastatin (LIPITOR) 40 mg tablet Take 1 tablet by mouth once daily. - dulaglutide (TRULICITY) 3 mg/0.5 mL pen injector Inject 3 mg subcutaneously one time a week. Inject once per week. Discard Pen After - Magnesium Oxide 250 mg magnesium tab Take two in the AM and one in the PM. - metFORMIN (GLUCOPHAGE) 1,000 mg tablet Take 1 tablet by mouth two times a day with meals. - omeprazole (PRILOSEC) 40 mg capsule TAKE ONE CAPSULE BY MOUTH ONCE DAILY ON AN EMPTY STOMACH - torsemide (DEMADEX) 20 mg tablet Take 1 tablet by mouth two times a day. . - dapagliflozin propanediol (FARXIGA) 10 mg tablet Take 1 tablet by mouth once daily. Take one daily in the morning - ezcjgbpkyit-mkcqeelnm-xehmgb er (TRELEGY ELLIPTA) 100-62.5-25 mcg inhalation powder inhale 1 puff by mouth and INTO THE LUNGS once daily - aspirin, enteric coated (ASPIRIN, ENTERIC COATED) 81 mg EC tablet Take 1 tablet by mouth once daily. - Cholecalciferol, Vitamin D3, (VITAMIN D-3) 50 mcg (2,000 unit) cap Take 1 capsule by mouth once daily. - terbinafine HCl (LAMISIL) 250 mg tablet Take 1 tablet by mouth once daily. - cyanocobalamin (VITAMIN B-12) 1,000 mcg tab Take 1 tablet by mouth once daily. - Calcium-Cholecalciferol, D3, 600 mg-5 mcg (200 unit) cap Take 1 capsule by mouth once daily. Problem List As Of Date 05/29/2024 Noted Resolved Peripheral autonomic neuropathy in disorders cl*06/07/2005 Mixed hyperlipidemia [E78.2] 10/31/2006 Spinal stenosis, lumbar region, without neuroge*11/13/2006 GERD (gastroesophageal reflux disease) [K21.9] 12/27/2011 Tobacco abuse [Z72.0] 12/27/2011 10/01/2012 Special screening for malignant neoplasms, colo*09/06/2012 06/13/2018 Esophagitis, unspecified [K20.90] 09/25/2012 01/06/2014 Obesity, Class I, BMI 30-34.9 [E66.9] 10/01/2012 Venous insufficiency, peripheral [I87.2] 01/06/2014 11/25/2019 Acute bronchitis with chronic obstructive pulmo*12/30/2014 06/26/2017 Vitamin D deficiency [E55.9] 12/31/2014 Class 1 obesity due to excess calories with ser*06/26/2017 11/25/2019 Multiple myeloma (HCC) [C90.00] 11/28/2017 Adjustment insomnia [F51.02] 12/07/2017 05/14/2018 Multiple myeloma in remission (HCC) [C90.01] 12/07/2017 Leg DVT (deep venous thromboembolism), acute, l*01/02/2018 11/25/2019 Type 2 diabetes mellitus without complication, *04/12/2018 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, T38.0X5A]04/19/2018 05/14/2018 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] 06/13/2018 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/13/2018 Bilateral lower extremity edema [R60.0] 06/13/2018 07/17/2018 Essential hypertension [I10] 06/13/2018 JOSE ENRIQUE (acute kidney injury) (HCC) [N17.9] 06/16/2018 06/18/2018 Hyperkalemia [E87.5] 06/18/2018 2018 Chemotherapy induced nausea and vomiting [R11.2*06/18/2018 07/02/2018 Difficulty coping [R45.89] 06/20/2018 06/26/2018 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) [D61.810]06/25/2018 Fall [W19.XXXA] 07/17/2018 11/25/2019 Acute on chronic systolic CHF (congestive heart*10/04/2019 11/25/2019 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] 10/04/2019 Shortness of breath [R06.02] 10/22/2019 11/25/2019 Chest pressure [R07.89] 10/23/2019 11/25/2019 Pulmonary hypertension, unspecified (HCC) [I27.*10/23/2019 Wheezing [R06.2] 10/23/2019 11/25/2019 Lung nodules [R91.8] 10/23/2019 Ex-smoker [Z87.891] 03/15/2021 COPD (chronic obstructive pulmonary disease) (H*03/15/2021 Allergic rhinitis [J30.9] 03/15/2021 Medication management [Z79.899] 03/15/2021 Cancer of the skin, basal cell [C44.91] 04/21/2021 Low serum vitamin B12 [E53.8] 04/22/2021 Hypomagnesemia [E83.42] 04/22/2021 Diabetic eye exam (HCC) [Z01.00, (more content not included)... Normal [facility] RONNIE YARBROUGH I ([id number]) 1950 M Date Time Provider Department 05/29[facility] During your visit today, we recorded the following information about you: Ovidio Vincent MD 05/29/2024 9:09 PM Signed Let patient know the US of his neck arteries showed mild narrowing on both sides but not significant enough to cause any symptoms or a stroke. We will repeat the US every few years. Slime Hernandez LPN 05/30/2024 9:00 AM Signed Patient notified of results and provider's instructions. Patient verbalizes understanding. Slime Hernandez LPN Allergies As of Date: 05/29/2024 (No Known Allergies) Date Reviewed: 05/27/2024 Reviewed by: Hayde Ward MD - Fully Assessed Reason for Visit: Results [95] Primary Visit Diagnosis:Bilateral carotid artery stenosis [I65.23] Prescriptions as of 05/30/2024 - doxycycline monohydrate (MONODOX) 100 mg capsule TAKE 1 CAPSULE BY MOUTH TWICE DAILY FOR 28 DAYS - oxyCODONE IR (ROXICODONE) 5 mg immediate release tablet TAKE ONE-HALF TO ONE TABLET BY MOUTH EVERY 4 HOURS NEEDED FOR PAIN - amoxicillin-clavulanate potassium (AUGMENTIN) 875-125 mg per tablet Take 1 tablet by mouth every 12 hours. - losartan (COZAAR) 25 mg tablet Take 0.5 tablets by mouth once daily. - carvedilol (COREG) 6.25 mg tablet Take 2 tablets by mouth two times a day with meals. Per [facility] - atorvastatin (LIPITOR) 40 mg tablet Take 1 tablet by mouth once daily. - dulaglutide (TRULICITY) 3 mg/0.5 mL pen injector Inject 3 mg subcutaneously one time a week. Inject once per week. Discard Pen After - Magnesium Oxide 250 mg magnesium tab Take two in the AM and one in the PM. - metFORMIN (GLUCOPHAGE) 1,000 mg tablet Take 1 tablet by mouth two times a day with meals. - omeprazole (PRILOSEC) 40 mg capsule TAKE ONE CAPSULE BY MOUTH ONCE DAILY ON AN EMPTY STOMACH - torsemide (DEMADEX) 20 mg tablet Take 1 tablet by mouth two times a day. . - dapagliflozin propanediol (FARXIGA) 10 mg tablet Take 1 tablet by mouth once daily. Take one daily in the morning - mmqibpnoove-fgxklpqty-vrfeid er (TRELEGY ELLIPTA) 100-62.5-25 mcg inhalation powder inhale 1 puff by mouth and INTO THE LUNGS once daily - aspirin, enteric coated (ASPIRIN, ENTERIC COATED) 81 mg EC tablet Take 1 tablet by mouth once daily. - Cholecalciferol, Vitamin D3, (VITAMIN D-3) 50 mcg (2,000 unit) cap Take 1 capsule by mouth once daily. - terbinafine HCl (LAMISIL) 250 mg tablet Take 1 tablet by mouth once daily. - cyanocobalamin (VITAMIN B-12) 1,000 mcg tab Take 1 tablet by mouth once daily. - Calcium-Cholecalciferol, D3, 600 mg-5 mcg (200 unit) cap Take 1 capsule by mouth once daily. Problem List As Of Date 05/29/2024 Noted Resolved Peripheral autonomic neuropathy in disorders cl*06/07/2005 Mixed hyperlipidemia [E78.2] 10/31/2006 Spinal stenosis, lumbar region, without neuroge*11/13/2006 GERD (gastroesophageal reflux disease) [K21.9] 12/27/2011 Tobacco abuse [Z72.0] 12/27/2011 10/01/2012 Special screening for malignant neoplasms, colo*09/06/2012 06/13/2018 Esophagitis, unspecified [K20.90] 09/25/2012 01/06/2014 Obesity, Class I, BMI 30-34.9 [E66.9] 10/01/2012 Venous insufficiency, peripheral [I87.2] 01/06/2014 11/25/2019 Acute bronchitis with chronic obstructive pulmo*12/30/2014 06/26/2017 Vitamin D deficiency [E55.9] 12/31/2014 Class 1 obesity due to excess calories with ser*06/26/2017 11/25/2019 Multiple myeloma (HCC) [C90.00] 11/28/2017 Adjustment insomnia [F51.02] 12/07/2017 05/14/2018 Multiple myeloma in remission (HCC) [C90.01] 12/07/2017 Leg DVT (deep venous thromboembolism), acute, l*01/02/2018 11/25/2019 Type 2 diabetes mellitus without complication, *04/12/2018 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, T38.0X5A]04/19/2018 05/14/2018 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] 06/13/2018 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/13/2018 Bilateral lower extremity edema [R60.0] 06/13/2018 07/17/2018 Essential hypertension [I10] 06/13/2018 JOSE ENRIQUE (acute kidney injury) (HCC) [N17.9] 06/16/2018 06/18/2018 Hyperkalemia [E87.5] 06/18/2018 2018 Chemotherapy induced nausea and vomiting [R11.2*06/18/2018 07/02/2018 Difficulty coping [R45.89] 06/20/2018 06/26/2018 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) [D61.810]06/25/2018 Fall [W19.XXXA] 07/17/2018 11/25/2019 Acute on chronic systolic CHF (congestive heart*10/04/2019 11/25/2019 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] 10/04/2019 Shortness of breath [R06.02] 10/22/2019 11/25/2019 Chest pressure [R07.89] 10/23/2019 11/25/2019 Pulmonary hypertension, unspecified (HCC) [I27.*10/23/2019 Wheezing [R06.2] 10/23/2019 11/25/2019 Lung nodules [R91.8] 10/23/2019 Ex-smoker [Z87.891] 03/15/2021 COPD (chronic obstructive pulmonary disease) (H*03/15/2021 Allergic rhinitis [J30.9] 03/15/2021 (more content not included)... Normal [facility] MR Brain WO contraston 05-29 IMPRESSION: Mild volume loss which is predominantly frontal in distribution and suspected remote left orbital blowout fracture. Otherwise normal study. Electronics Engineering Manager: PSCB Transcribe Date/Time: May 29 2024 9:37A Dictated by : HEATH QUINTERO MD This examination was interpreted and the report reviewed and electronically signed by: HEATH QUINTERO MD on May 29 2024 9:44AM [facility] DIVISION OF RADIOLOGY * * *Final Report* * * DATE OF EXAM: May 29 2024 9:33AM [facility] 0294 - MRI BRAIN WO IVCON / PROCEDURE REASON: Vertigo * * * * Physician Interpretation * * * * EXAMINATION: MRI BRAIN WO IVCON CLINICAL HISTORY: Diabetes, hypertension, hyperlipidemia, and multiple myeloma. Chronic vertigo. TECHNIQUE: Routine noncontrast MRI protocol including diffusion images. Supplemental high-resolution axial 3-D T2 images of the IAC region with coronal reconstructions. MQ: MRBWO_2 COMPARISON: None. RESULT: Acute Change: There is no evidence of restricted diffusion to suggest an acute infarct. Hemorrhage: No evidence of prior parenchymal, subarachnoid or intraventricular hemorrhage on SWI. Mass Lesion/ Mass Effect: No evidence of an intracranial mass or extra-axial fluid collection. In particular, there is no evidence of a mass in the region of either IAC. No significant mass effect. Chronic Change: The white matter is within normal limits of signal intensity for age. Parenchyma: There is mild volume loss which is prominently frontal in distribution. The brain parenchyma is otherwise within normal limits of signal intensity and morphology. Ventricles: Mild enlargement of lateral and third ventricles commensurate with volume loss as outlined above. Skull Base: Hypothalamic and pituitary region are grossly normal. Craniocervical junction is normal. No significant marrow replacement process in the skull base. The inner ear structures appear to be within normal limits of morphology on the high-resolution axial 3-D T2 images. Incidentally noted is a small effusion in the left parieto-occipital joint. Vasculature: Major intracranial arterial structures, and dural venous sinuses show typical flow void, suggesting patency by spin echo criteria. Other: Minimal mucosal thickening is noted in the anterior ethmoid air cells. The paranasal sinuses, mastoid air cells and middle ear cavities are otherwise clear. Additional note is made of localized deformity of the left lamina papyracea with herniation of orbital fat into the adjacent anterior ethmoid air cells suggesting remote orbital blowout fracture. DIVISION OF RADIOLOGY Provider, [facility] - 05/29/2024 * * *Final Report* * * DATE OF EXAM: May 29 2024 9:33AM [facility] 0294 - MRI BRAIN WO IVCON / PROCEDURE REASON: Vertigo * * * * Physician Interpretation * * * * EXAMINATION: MRI BRAIN WO IVCON CLINICAL HISTORY: Diabetes, hypertension, hyperlipidemia, and multiple myeloma. Chronic vertigo. TECHNIQUE: Routine noncontrast MRI protocol including diffusion images. Supplemental high-resolution axial 3-D T2 images of the IAC region with coronal reconstructions. MQ: MRBWO_2 COMPARISON: None. RESULT: Acute Change: There is no evidence of restricted diffusion to suggest an acute infarct. Hemorrhage: No evidence of prior parenchymal, subarachnoid or intraventricular hemorrhage on SWI. Mass Lesion/ Mass Effect: No evidence of an intracranial mass or extra-axial fluid collection. In particular, there is no evidence of a mass in the region of either IAC. No significant mass effect. Chronic Change: The white matter is within normal limits of signal intensity for age. Parenchyma: There is mild volume loss which is prominently frontal in distribution. The brain parenchyma is otherwise within normal limits of signal intensity and morphology. Ventricles: Mild enlargement of lateral and third ventricles commensurate with volume loss as outlined above. Skull Base: Hypothalamic and pituitary region are grossly normal. Craniocervical junction is normal. No significant marrow replacement process in the skull base. The inner ear structures appear to be within normal limits of morphology on the high-resolution axial 3-D T2 images. Incidentally noted is a small effusion in the left parieto-occipital joint. Vasculature: Major intracranial arterial structures, and dural venous sinuses show typical flow void, suggesting patency by spin echo criteria. Other: Minimal mucosal thickening is noted in the anterior ethmoid air cells. The paranasal sinuses, mastoid air cells and middle ear cavities are otherwise clear. Additional note is made of localized deformity of the left lamina papyracea with herniation of orbital fat into the adjacent anterior ethmoid air cells suggesting remote orbital blowout fracture. IMPRESSION IMPRESSION: Mild volume loss which is predominantly frontal in distribution and suspected remote left orbital blowout fracture. Otherwise normal study. Electronics Engineering Manager: ROBERTA Transcribe Date/Time: May 29 2024 9:37A Dictated by : HEATH QUINTERO MD This examination was interpreted and the report reviewed and electronically signed by: HEATH QUINTERO MD on May 29 2024 9:44AM EST [facility] Radiology Study observation (narrative) [facility] MR Brain WO contrastOrdered By: [facility] Provider on 05-29-2024 [facility] MRI BRAIN WO IVCONon 024 MRI BRAIN WO IVCON * * *Final Report* * * DATE OF EXAM: May 29 2024 9:33AM [facility] 0294 - MRI BRAIN WO IVCON / PROCEDURE REASON: Vertigo * * * * Physician Interpretation * * * * EXAMINATION: MRI BRAIN WO IVCON CLINICAL HISTORY: Diabetes, hypertension, hyperlipidemia, and multiple myeloma. Chronic vertigo. TECHNIQUE: Routine noncontrast MRI protocol including diffusion images. Supplemental high-resolution axial 3-D T2 images of the IAC region with coronal reconstructions. MQ: MRBWO_2 COMPARISON: None. RESULT: Acute Change: There is no evidence of restricted diffusion to suggest an acute infarct. Hemorrhage: No evidence of prior parenchymal, subarachnoid or intraventricular hemorrhage on SWI. Mass Lesion/ Mass Effect: No evidence of an intracranial mass or extra-axial fluid collection. In particular, there is no evidence of a mass in the region of either IAC. No significant mass effect. Chronic Change: The white matter is within normal limits of signal intensity for age. Parenchyma: There is mild volume loss which is prominently frontal in distribution. The brain parenchyma is otherwise within normal limits of signal intensity and morphology. Ventricles: Mild enlargement of lateral and third ventricles commensurate with volume loss as outlined above. Skull Base: Hypothalamic and pituitary region are grossly normal. Craniocervical junction is normal. No significant marrow replacement process in the skull base. The inner ear structures appear to be within normal limits of morphology on the high-resolution axial 3-D T2 images. Incidentally noted is a small effusion in the left parieto-occipital joint. Vasculature: Major intracranial arterial structures, and dural venous sinuses show typical flow void, suggesting patency by spin echo criteria. Other: Minimal mucosal thickening is noted in the anterior ethmoid air cells. The paranasal sinuses, mastoid air cells and middle ear cavities are otherwise clear. Additional note is made of localized deformity of the left lamina papyracea with herniation of orbital fat into the adjacent anterior ethmoid air cells suggesting remote orbital blowout fracture. IMPRESSION: Mild volume loss which is predominantly frontal in distribution and suspected remote left orbital blowout fracture. Otherwise normal study. Electronics Engineering Manager: ROBERTA Transcribe Date/Time: May 29 2024 9:37A Dictated by : HEATH QUINTERO MD This examination was interpreted and the report reviewed and electronically signed by: HEATH QUINTERO MD on May 29 2024 9:44AM EST [id number] Normal [facility] US CAROTID ARTERIES ALESSANDRA VAS LABon 05-29-2024 US CAROTID ARTERIES [facility]ANDRA VAS LAB Non-Invasive [facility] Carotid Duplex Bilateral/Complete Date of service/time: 05/29/2024 7:59:13 AM Name: MR. RONNIE YARBROUGH Date of : 1950 Age: 73 years Gender: M Clinical Indication Dizziness. TECHNIQUE -------- A carotid duplex ultrasound examination was performed, including grayscale imaging and color Doppler and spectral Doppler examination of the below mentioned arteries. FINDINGS -------- RIGHT SIDE Common carotid artery: Proximal: PSV: 95 cm/s. EDV: 12 cm/s. Mid: PSV: 129 cm/s. EDV: 25 cm/s. Distal: PSV: 91 cm/s. EDV: 14 cm/s. Mild homogeneous plaque at distal. Internal carotid artery: Origin: PSV: 74 cm/s. EDV: 20 cm/s. Proximal: PSV: 94 cm/s. EDV: 26 cm/s. Mid: PSV: 86 cm/s. EDV: 28 cm/s. Distal: PSV: 75 cm/s. EDV: 24 cm/s. Mild heterogeneous plaque at origin. ICA/CCA Ratio: 1.0 External carotid artery: Origin: PSV: 174 cm/s. EDV: 16 cm/s. Subclavian artery: Proximal: PSV: 179 cm/s. EDV: 0 cm/s. Vertebral artery: PSV: 30 cm/s. EDV: 11 cm/s. LEFT SIDE Common carotid artery: Proximal: PSV: 155 cm/s. EDV: 30 cm/s. Mid: PSV: 124 cm/s. EDV: 26 cm/s. Distal: PSV: 78 cm/s. EDV: 18 cm/s. Internal carotid artery: Origin: PSV: 65 cm/s. EDV: 17 cm/s. Proximal: PSV: 70 cm/s. EDV: 22 cm/s. Mid: PSV: 71 cm/s. EDV: 25 cm/s. Distal: PSV: 54 cm/s. EDV: 18 cm/s. Mild heterogeneous plaque at origin. ICA/CCA Ratio: 0.9 External carotid artery: Origin: PSV: 112 cm/s. EDV: 23 cm/s. Subclavian artery: Proximal: PSV: 116 cm/s. EDV: 0 cm/s. Vertebral artery: PSV: 36 cm/s. EDV: 10 cm/s. IMPRESSION Irregular cardiac rhythm noted. RIGHT SIDE Common carotid artery: Plaque visualized without evidence of hemodynamically significant stenosis. Internal carotid artery: 20-39% stenosis. Vertebral artery: Patent and antegrade flow noted. Innominate artery: Unable to visualize. Subclavian artery: Patent. LEFT SIDE Internal carotid artery: 20-39% stenosis. Tortuous vessel at mid . Vertebral artery: Patent and antegrade flow noted. Subclavian artery: Patent. Technologist: Rufina Swartz RVT [facility] Ordering physician: OVIDIO VINCENT Interpreting physician: TAYLOR Shaikh DO Final CC [employer] Medical Image : [id number] See Link below for Image Normal [facility] CBC W Auto Differential pane l (Bld)on 05-27-2024 Basophils (Bld) [#/Vol] 10*3/uL Normal <0.11 [facility] Comment on above: Order Comment: Speci men Type: BLOOD SPECIMEN [facility]ing [facility] [facility] Address: [address] [place] [address] Performed By: #### 5 7021-8 #### [facility] CLIA [id number] [address] [place] [address] [place] Basophils/100 WBC (Bld) 0.1 % Normal [facility] Comment on above: Order Comment: Speci men Type: BLOOD SPECIMEN Ordering Facility: [facility] Address: [address] [place] [address] Performed By: #### 5 7021-8 #### [facility] CLIA [id number] [address] [place] [address] [place] Differential cell count method Nom (Bld) Auto Normal [facility] Comment on above: Order Comment: Speci men Type: BLOOD SPECIMEN Ordering Facility: [facility] Address: [address] [place] [address] Performed By: #### 5 7021-8 #### [facility] CLIA [id number] [address] [place] [address] [place] Eosinophils (Bld) [#/Vol] 0.03 10*3/uL Normal <0.46 [facility] Comment on above: Order Comment: Speci men Type: BLOOD SPECIMEN Ordering Facility: [facility] Address: [address] [place] [address] Performed By: #### 5 7021-8 #### [facility] CLIA [id number] [address] [place] [address] [place] Eosinophils/100 WBC (Bld) 0.4 % Normal [facility] Comment on above: Order Comment: Speci men Type: BLOOD SPECIMEN Ordering Facility: [facility] Address: [address] [place] [address] Performed By: #### 5 7021-8 #### [facility] CLIA [id number] [address] [place] [address] [place] Erythrocyte distribution width (RBC) [Ratio] 16.8 % High 11.5-15.0 [facility] Comment on above: Order Comment: Speci men Type: BLOOD SPECIMEN Ordering Facility: [facility] Address: [address] [place] [address] Performed By: #### 5 7021-8 #### [facility] CLIA [id number] [address] [place] [address] [place] Hematocrit (Bld) [Volume fraction] 43.2 % Normal 39.0-51.0 [facility] Comment on above: Order Comment: Speci men Type: BLOOD SPECIMEN Ordering Facility: [facility] Address: [address] [place] [address] Performed By: #### 5 7021-8 #### [facility] CLIA [id number] [address] [place] [address] [place] Hemoglobin (Bld) [Mass/Vol] 13.6 g/dL Normal 13.0-17.0 [facility] Comment on above: Order Comment: Speci men Type: BLOOD SPECIMEN Ordering Facility: [facility] Address: [address] [place] [address] Performed By: #### 5 7021-8 #### [facility] CLIA [id number] [address] [place] [address] [place] Immature granulocytes (Bld) [#/Vol] 0.05 10*3/uL Normal <0.10 [facility] Comment on above: Order Comment: Speci men Type: BLOOD SPECIMEN Ordering Facility: [facility] Address: [address] [place] [address] Performed By: #### 5 7021-8 #### [facility] CLIA [id number] [address] [place] [address] [place] Immature granulocytes/100 WBC (Bld) 0.7 % Normal [facility] Comment on above: Order Comment: Speci men Type: BLOOD SPECIMEN Ordering Facility: [facility] Address: [address] [place] [address] Performed By: #### 5 7021-8 #### [facility] CLIA [id number] [address] [place] [address] [place] Lymphocytes (Bld) [#/Vol] 0.82 10*3/uL Low 1.00-4.00 [facility] Comment on above: Order Comment: Speci men Type: BLOOD SPECIMEN Ordering Facility: [facility] Address: [address] [place] [address] Performed By: #### 5 7021-8 #### [id number] [address] [place] [address] [place] Lymphocytes/100 WBC (Bld) 12.1 % Normal [facility] Comment on above: Order Comment: Speci men Type: BLOOD SPECIMEN Ordering Facility: [facility] Address: [address] [place] [address] Performed By: #### 5 7021-8 #### [facility] [id number] [address] [place] [address] [place] MCH (RBC) [Entitic mass] 25.7 pg Low 26.0-34.0 [facility] Comment on above: Order Comment: Speci men Type: BLOOD SPECIMEN Ordering Facility: [facility] Address: [address] [place] [address] Performed By: #### 5 7021-8 #### [facility] [id number] [address] [place] [address] [place] MCHC (RBC) [Mass/Vol] 31.5 g/dL Normal 30.5-36.0 [facility] Comment on above: Order Comment: Speci men Type: BLOOD SPECIMEN Ordering Facility: [facility] Address: [address] [place] [address] Performed By: #### 5 7021-8 #### [facility] CLIA [id number] [address] [place] [address] [place] MCV (RBC) [Entitic vol] 81.7 fL Normal 80.0-100.0 [facility] Comment on above: Order Comment: Speci men Type: BLOOD SPECIMEN Ordering Facility: [facility] Address: [address] [place] [address] Performed By: #### 5 7021-8 #### [facility] CLIA [id number] [address] [place] [address] [place] Monocytes (Bld) [#/Vol] 0.45 10*3/uL Normal <0.87 [facility] Comment on above: Order Comment: Speci men Type: BLOOD SPECIMEN Ordering Facility: [facility] Address: [address] [place] [address] Performed By: #### 5 7021-8 #### [facility] CLIA [id number] [address] [place] [address] [place] Monocytes/100 WBC (Bld) 6.6 % Normal [facility] Comment on above: Order Comment: Speci men Type: BLOOD SPECIMEN Ordering Facility: [facility] Address: [address] [place] [address] Performed By: #### 5 7021-8 #### [facility] CLIA [id number] [address] [place] [address] [place] Neutrophils (Bld) [#/Vol] 5.44 10*3/uL Normal 1.45-7.50 [facility] Comment on above: Order Comment: Speci men Type: BLOOD SPECIMEN Ordering Facility: [facility] Address: [address] [place] [address] Performed By: #### 5 7021-8 #### [facility] CLIA [id number] [address] [place] [address] [place] Neutrophils/100 WBC (Bld) 80.1 % Normal [facility] Comment on above: Order Comment: Speci men Type: BLOOD SPECIMEN Ordering Facility: [facility] Address: [address] [place] [address] Performed By: #### 5 7021-8 #### [facility] CLIA [id number] [address] [place] [address] [place] Nucleated RBC (Bld) [#/Vol] 10*3/uL Normal <0.01 [facility] Comment on above: Order Comment: Speci men Type: BLOOD SPECIMEN Ordering Facility: [facility] Address: [address] [place], [place] [id number] Performed By: #### 5 7021-8 #### [facility] CLIA [id number] [address] [place] [address] [place] Nucleated RBC/100 WBC (Bld) [Ratio] 0.0 /100 WBC Normal [facility] Comment on above: Order Comment: Speci men Type: BLOOD SPECIMEN Ordering Facility: [facility] Address: [address] [place] [address] Performed By: #### 5 7021-8 #### [facility] CLIA [id number] [address] [place] [address] [place] Platelet mean volume (Bld) [Entitic vol] 10.5 fL Normal 9.0-12.7 [facility] Comment on above: Order Comment: Speci men Type: BLOOD SPECIMEN Ordering Facility: [facility] Address: [address] [place] [address] Performed By: #### 5 7021-8 #### [facility] CLIA [id number] [address] [place] [address] [place] Platelets (Bld) [#/Vol] 204 10*3/uL Normal 150-400 [facility] Comment on above: Order Comment: Speci men Type: BLOOD SPECIMEN Ordering Facility: [facility] Address: [address] [place] [address] Performed By: #### 5 7021-8 #### [facility] CLIA [id number] [address] [place] [address] [place] RBC (Bld) [#/Vol] 5.29 10*6/uL Normal 4.20-6.00 [facility] Comment on above: Order Comment: Speci men Type: BLOOD SPECIMEN Ordering Facility: [facility] Address: [address] [place] [address] Performed By: #### 5 7021-8 #### [facility] CLIA [id number] [address] [place] [address] [place] WBC (Bld) [#/Vol] 6.80 10*3/uL Normal 3.70-11.00 [facility] Comment on above: Order Comment: Speci men Type: BLOOD SPECIMEN Ordering Facility: [facility] Address: [address] [place] [address] Performed By: #### 5 7021-8 #### [facility] CLIA [id number] [address] [place] [address] [place] CK SerPl-cCncon 05-27-2024 CK [Catalytic activity/Vol] 15 U/L Low 51-298 [facility] Comment on above: Order Comment: Speci men Type: BLOOD SPECIMENOrdering Facility: [facility] Address: [address] [place] [address] Performed By: #### 1 988-5, 02327-4, 2276-4, 2157-6 ####[facility] LAB[facility]IA [id number] [place] [address] [place] CNOVon 05-27-2024 CNOV Office Visit (PULMWS ) RONNIE YARBROUGH I ([id number]) 1950 M Date Time Provider Department 05/27/24 10:00 AM HAYDE WARD PULMWS During your visit today, we recorded the following information about you: Pulse Blood pressure Weight Height 82/minute 118/70 97.8 kg 1.753 m Hayde Ward MD 05/27/2024 11:56 AM Signed . Respiratory [place] Note Patient name: Ronnie Yarbrough PCP: Ovidio Vincent MD CC: Follow-up COPD HPI: Ronnie Yarbrough 73 year old male former 31-hozv-ethr smoker, quitting in 2011 with PMH significant for multiple myeloma s/p Revlimid/Velcade and dexamethasone followed by stem cell transplant having achieved remission, COPD with chronic bronchitis component, HTN, HLD, diastolic heart failure, inflammatory polyarthropathy, pulmonary nodules and DVT. Current inhaled therapy consisted of Trelegy Ellipta with as needed albuterol. He has known stable pulmonary nodules but actually qualifies for lung cancer screening and will be due for CT in July but he is current declining evaluation. Of a pulmonary standpoint, he states he has been doing well. No significant dyspnea, cough, mucus production or wheezing. He has not been ill with any upper respiratory infection nor required hospitalization or ED visit for his lung disease. No need for his rescue inhaler. Recent history notable for right elbow septic arthritis requiring surgical intervention. COPD Assessment Test I never cough 0 1 2 3 4 5 I cough all the time; Score 1 I have no phlegm 0 1 2 3 4 5 My chest is completely full of phlegm; Score 1 My chest does not feel tight at all 0 1 2 3 4 5 My chest chest feels very tight; Score 0 When I walk up a hill or one flight of stairs I am not breathless 0 1 2 3 4 5 When I walk up a hill or one flight or stairs I am very breathless; Score 1 I am not limited doing any activities at home 0 1 2 3 4 5 I am very limited doing activities at home; Score 1 I am confident leaving my home despite my lung condition 0 1 2 3 4 5 I am not at all confident leaving my home because of my lung condition; Score 5 I sleep soundly 0 1 2 3 4 5 don't sleep soundly because of my lungs; Score 0 I have lots of energy 0 1 2 3 4 5 I have no energy at all; Score 1 Total Score: 10 PAST MEDICAL HISTORY 02/24/2023: Acute thromboembolism of deep veins of both lower extremities ([facility]) Comment: Eliquis started 02/2023, can stop 08/202309/30/2022: Advance directive discussed with patient Comment: Discussed 09/2022: up to date 03/15/2021: Allergic rhinitis 12/16/2022: At high risk for falls 06/13/2018: 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[facility]) Comment: Day: +12; Engrafted Protocol(s): 3422 1C Preparative regimen: melphalan Mobilization regimen: neupogen and plerixafor Stem cell source: apheresis CD34 cell dose (x10e6/kg): 5.14 Date of transplant: 06/15/2018 09/30/2022: Bilateral leg edema 04/21/2021: Cancer of the skin, basal cell Comment: excised 04/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 No date: Cervical spondylosis without myelopathy 03/30/2023: Chronic renal failure, stage 3a ([facility]) 03/15/2021: COPD (chronic obstructive pulmonary disease) ([facility]) 09/09/2021: Diabetic eye exam ([facility]) Comment: Last done 09/09/[address] Juve Reza 06/04/2023: Dilated aortic root ([facility]) Comment: Seeing Matthew Cardio 10/06/2021: Discoloration and thickening of nails both feet 07/04/2022: ED (erectile dysfunction) of organic origin 06/04/2023: Enlarged LA (left atrium) Comment: Seeing Matthew Cardio 06/13/2018: Essential hypertension Comment: -On lisinopril 10mg daily ( home med) -Will d/c for now given hyperkalemia . 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[facility]) Comment: --ppx ACV and cipro 12/16/2022: Increased weakness when ambulating No date: Inflammatory polyarthropathy ([facility]) 01/02/2018: Leg DVT (deep venous thromboembolism), acute, left ([facility]) Comment: --acute DVT gastrocnemius found 12/13/2017 --continue apixaban till platelets <50K, last dose 06/21/2018 09/30/2022: Living will on file at physician's office Comment: DPA: BREN () 04/22/2021: Low serum vitamin B12 No date: Lumbar spinal stenosis 10/06/2021: Medicare annual wellness visit, subsequent Comment: Medicare part B: Not able to find, Last done: 10/06/2021 10/31/2006: Mixed hyperlipidemia Comment: --will hold atorvastatin d/t interactions with chemotherapy can resume at discharge 11/28/2017: Multiple myeloma ([facility]) No date: Multiple myeloma in remission ([facility]) 10/01/2012: Obesity, Class I, BMI 30-34.9 No date: Osteoarthritis of both hands 06/25/2018: Pancytopenia due to olivia (more content not included)... Normal [facility] RONNIE YARBROUGH I ([id number]) 1950 M Date Time Provider Department 05/27/24 7:00 AM LESLYE WINTERWS During your visit today, we recorded the following information about you: Temperature Pulse Respiration Blood pressure 97.4 degrees 69/minute 18/minute 128/72 Weight 97.1 kg Leslye Winter PA-C 05/27/2024 8:40 AM Signed Chief Complaint Patient presents with: Hospital F/U HPI Ronnie Yarbrough is a 73 year old male who presents here today for Hospital Discharge Follow up.. Patient was admitted to [facility] in [place] for septic arthritis of right elbow and wrist. He had IANDD by ortho and was admitted for IV antibiotics under infectious disease. Ortho reported probable septic arthritis and pseudogout. Infectious Disease initially recommended 6 weeks of IV atb but patient declined Picc line at discharge. He was given doxycycline and augmentin to take for 4 weeks. He is leaving next week for vacation in [place]. Over patient states symptoms have significantly improved. No pain. No fevers. While in hospital, he was also found to be anemic and his BP was low. His bp medications were decreased. Past medical history, appointments, medications, allergies reviewed. Previous Medical History PAST MEDICAL HISTORY 02/24/2023: Acute thromboembolism of deep veins of both lower extremities ([facility]) Comment: Eliquis started 02/2023, can stop 08/202309/30/2022: Advance directive discussed with patient Comment: Discussed 09/2022: up to date 03/15/2021: Allergic rhinitis 12/16/2022: At high risk for falls 06/13/2018: 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[facility]) Comment: Day: +12; Engrafted Protocol(s): 3422 1C Preparative regimen: melphalan Mobilization regimen: neupogen and plerixafor Stem cell source: apheresis CD34 cell dose (x10e6/kg): 5.14 Date of transplant: 06/15/2018 09/30/2022: Bilateral leg edema 04/21/2021: Cancer of the skin, basal cell Comment: excised 04/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 No date: Cervical spondylosis without myelopathy 03/30/2023: Chronic renal failure, stage 3a ([facility]) 03/15/2021: COPD (chronic obstructive pulmonary disease) ([facility]) 09/09/2021: Diabetic eye exam ([facility]) Comment: Last done 09/09/[address] Juve Reza 06/04/2023: Dilated aortic root ([facility]) Comment: Seeing Matthew Cardio 10/06/2021: Discoloration and thickening of nails both feet 07/04/2022: ED (erectile dysfunction) of organic origin 06/04/2023: Enlarged LA (left atrium) Comment: Seeing Austin Cardio 06/13/2018: Essential hypertension Comment: -On lisinopril 10mg daily ( home med) -Will d/c for now given hyperkalemia . 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[facility]) Comment: --ppx ACV and cipro 12/16/2022: Increased weakness when ambulating No date: Inflammatory polyarthropathy ([facility]) 01/02/2018: Leg DVT (deep venous thromboembolism), acute, left ([facility]) Comment: --acute DVT gastrocnemius found 12/13/2017 --continue apixaban till platelets <50K, last dose 06/21/2018 09/30/2022: Living will on file at physician's office Comment: DPA: BREN () 04/22/2021: Low serum vitamin B12 No date: Lumbar spinal stenosis 10/06/2021: Medicare annual wellness visit, subsequent Comment: Medicare part B: Not able to find, Last done: 10/06/2021 10/31/2006: Mixed hyperlipidemia Comment: --will hold atorvastatin d/t interactions with chemotherapy can resume at discharge 11/28/2017: Multiple myeloma ([facility]) No date: Multiple myeloma in remission ([facility]) 10/01/2012: Obesity, Class I, BMI 30-34.9 No date: Osteoarthritis of both hands 06/25/2018: Pancytopenia due to chemotherapy ([facility]) Comment: --Transfuse PRBC and platelets per protocol --GCSF 06/07/2005: Peripheral autonomic neuropathy in disorders classified elsewhere 10/23/2019: Pulmonary hypertension, unspecified ([facility]) 11/13/2006: Spinal stenosis, lumbar region, without neurogenic claudication 12/27/2011: Tobacco abuse Comment: Quit 201204/12/2018: Type 2 diabetes mellitus without complication, without long-term current use of insulin ([facility]) 01/06/2014: Venous insufficiency, peripheral 12/31/2014: Vitamin D deficiency 12/16/2022: Weakness of both lower extremities Previous Surgical History PAST SURGICAL HISTORY 01/28/2013: ANES ARTHROSCOPIC TOTAL SHOULDER REPLACEMENT; Right Comment: [facility] - complete right shoulder replaceement 2009: ARTHRD ANT INTERBODY MIN DSC LUMBAR 1980: ARTHROTOMY W/MENISCUS REPAIR KNEE Comment: RIGHT 1982: ARTHROTOMY W/MENISCUS REPAIR KNEE Comment: LEFT 2008: ARTHRP KNE CONDYLEANDPLATU MEDIALANDLAT COMPARTMENTS; Right Com (more content not included)... Normal [facility] CRP SerPl-mCncon 05-27-2024 CRP [Mass/Vol] 4.7 mg/dL High <0.9 [facility] Comment on above: Order Comment: Speci april Type: BLOOD SPECIMENOrdering Facility: [facility] Address: [address] [place] [address] Performed By: #### 1 988-5, 44165-3, 6-4, 7-6 ####[facility] LABCLIA [id number] [place] [address] [place] Ferritin SerPl-mCncon 2023 Ferritin [Mass/Vol] 75.0 ng/mL Normal 30.3-565.7 [facility] Comment on above: Order Comment: Jessi chen Type: BLOOD SPECIMENOrdering Facility: [facility] Address: [address] [place] [address] Performed By: #### 1 988-5, 37680-5, 6-4, 7-6 ####[facility] LABCLIA [id number] [place] [address] [place] Folate SerPl-mCncon 05-27-20 Folate [Mass/Vol] ng/mL Normal >4.7 [facility] Comment on above: Order Comment: Jessi chen Type: BLOOD SPECIMEN Ordering Facility: [facility] Address: [address] [place] [address] Result Comment: A re sult of > 20 ng/mL is not necessarily indicative of a pathologic or treatable condition: it reflects a limitation of the test methodology. Assay reference range: 4.8 to 24.2 ng/mL. Suitable for detection of folate deficiency. Reference: Folate III (Folate III) [package insert V 1.0 Macanese]. [employer], [place], [place]: July 2015. Performed By: #### 2 284-8, 2132-9 #### [facility] CLIA [id number] [facility] [place] [address] [place] Iron and Iron binding capaci ty panelon 05-27-2024 Iron [Mass/Vol] 36 ug/dL Low 41-186 [facility] Comment on above: Order Comment: Speci men Type: BLOOD SPECIMENOrdering Facility: [facility] Address: [address] [place] [address] Performed By: #### 1 988-5, 41131-1, 2275-4, 2157-02 ####[facility] LABCLIA [id number] [place] [address] [place] Iron binding capacity [Mass/Vol] 235 ug/dL Normal 232-386 [facility] Comment on above: Order Comment: Speci men Type: BLOOD SPECIMENOrdering Facility: [facility] Address: [address] [place] [address] Performed By: #### 1 988-5, 93184-3, 2275-4, 2157-02 ####[facility] LABCLIA [id number] [place] [address] [place] Iron/TIBC [Molar ratio] 15.3 % Normal 15.0-57.0 [facility] Comment on above: Order Comment: Speci men Type: BLOOD SPECIMENOrdering Facility: [facility] Address: [address] [place] [address] Performed By: #### 1 988-5, 14158-5, 2275-4, 2157-02 ####[facility] [facility] [id number] [place] [id number] [place] Vit B12 [facility] Cobalamin (Vitamin B12) [Mass/Vol] 539 pg/mL Normal 232-1245 [facility] Comment on above: Order Comment: Speci men Type: BLOOD SPECIMEN Ordering Facility: [facility] Address: [address] [place] [address] Performed By: #### 2 284-8, 2132-9 #### [facility] CLIA [id number] [address] [place] [address] [id number] OF [facility] CNOVSPon 05-03-2024 CNOVSP Visit (SP) Office (H EMAWS) RONNIE YARBROUGH I ([id number]) 1950 M Date Time Provider Department 05/03/24 10:10 AM MURRAY MOONEY During your visit today, we recorded the following information about you: Temperature Pulse Blood pressure Weight 97.4 degrees 87/minute 115/65 95.7 kg Murray Mooney MD 05/03/2024 12:16 PM Signed (Elements copied from my note dated May 03, 2023, have been reviewed and updated where appropriate, and all reflect current assessment and medical decision making from today's encounter, May 03, 2024) HISTORY OF PRESENT ILLNESS: Ronnie Yarbrough is a 73 year old male for oncologic surveillance on multiple myeloma. He was initially treated with combination of Revlimid/Velcade and dexamethasone and with obtained remission underwent stem cell transplant. He had maintenance Revlimid and dexamethasone following that for 18 months. He has been off any treatments and continues with a remission for approximately 5 years. CLINICAL IMPRESSION: Myeloma in remission, no current treatment or maintenance. RECOMMENDATION/PLAN: 1. Repeat labs 6 months, his usual follow up interval 2. Will visit virtually after labs in 6 months. Written and verbal health teaching given to patient, patient verbalizes understanding and agrees with treatment plan. PAST MEDICAL HISTORY 02/24/2023: Acute thromboembolism of deep veins of both lower extremities (HCC) Comment: Dean started 02/2023, can stop 08/202309/30/2022: Advance directive discussed with patient Comment: Discussed 09/2022: up to date 03/15/2021: Allergic rhinitis 12/16/2022: At high risk for falls 06/13/2018: 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[facility]) Comment: Day: +12; Engrafted Protocol(s): 3422 1C Preparative regimen: melphalan Mobilization regimen: neupogen and plerixafor Stem cell source: apheresis CD34 cell dose (x10e6/kg): 5.14 Date of transplant: 06/15/2018 09/30/2022: Bilateral leg edema 04/21/2021: Cancer of the skin, basal cell Comment: excised 04/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 No date: Cervical spondylosis without myelopathy 03/30/2023: Chronic renal failure, stage 3a ([facility]) 03/15/2021: COPD (chronic obstructive pulmonary disease) ([facility]) 09/09/2021: Diabetic eye exam ([facility]) Comment: Last done 09/09/[address] Juve Reza 06/04/2023: Dilated aortic root ([facility]) Comment: Seeing [facility]io 10/06/2021: Discoloration and thickening of nails both feet 07/04/2022: ED (erectile dysfunction) of organic origin 06/04/2023: Enlarged LA (left atrium) Comment: Seeing [facility] 06/13/2018: Essential hypertension Comment: -On lisinopril 10mg daily ( home med) -Will d/c for now given hyperkalemia . 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[facility]) Comment: --ppx ACV and cipro 12/16/2022: Increased weakness when ambulating No date: Inflammatory polyarthropathy ([facility]) 01/02/2018: Leg DVT (deep venous thromboembolism), acute, left ([facility]) Comment: --acute DVT gastrocnemius found 12/13/2017 --continue apixaban till platelets <50K, last dose 06/21/2018 09/30/2022: Living will on file at physician's office Comment: DPA: BREN () 04/22/2021: Low serum vitamin B12 No date: Lumbar spinal stenosis 10/06/2021: Medicare annual wellness visit, subsequent Comment: Medicare part B: Not able to find, Last done: 10/06/2021 10/31/2006: Mixed hyperlipidemia Comment: --will hold atorvastatin d/t interactions with chemotherapy can resume at discharge 11/28/2017: Multiple myeloma (HCC) No date: Multiple myeloma in remission (HCC) 10/01/2012: Obesity, Class I, BMI 30-34.9 No date: Osteoarthritis of both hands 06/25/2018: Pancytopenia due to chemotherapy ([facility]) Comment: --Transfuse PRBC and platelets per protocol --GCSF 06/07/2005: Peripheral autonomic neuropathy in disorders classified elsewhere 10/23/2019: Pulmonary hypertension, unspecified ([facility]) 11/13/2006: Spinal stenosis, lumbar region, without neurogenic claudication 12/27/2011: Tobacco abuse Comment: Quit 201204/12/2018: Type 2 diabetes mellitus without complication, without long-term current use of insulin ([facility]) 01/06/2014: Venous insufficiency, peripheral 12/31/2014: Vitamin D deficiency 12/16/2022: Weakness of both lower extremities PAST SURGICAL HISTORY 01/28/2013: ANES ARTHROSCOPIC TOTAL SHOULDER REPLACEMENT; Right Comment: [facility] - complete right shoulder replaceement 2009: ARTHRD ANT INTERBODY MIN DSC LUMBAR 1980: ARTHROTOMY W/MENISCUS REPAIR KNEE Comment: RIGHT 1981: ARTHROTOMY W/MENISCUS REPAIR KNEE Comment: LEFT 2007: ARTHRP KNE CONDYLEANDPLATU MEDIALANDLAT COMPARTMENTS; Right C (more content not included)... Normal [facility] CBC W Auto Differential pane l (Bld)on 04-26-2024 Basophils (Bld) [#/Vol] 10*3/uL Normal <0.11 [facility] Comment on above: Order Comment: Speci men Type: BLOOD SPECIMEN Ordering Facility: [facility] Address: [address] [place] [address] Performed By: #### 5 7021-8 #### [facility] MATTHEW KELLEY [id number] [address] [place] [address] [place] Basophils/100 WBC (Bld) 0.2 % Normal [facility] Comment on above: Order Comment: Speci men Type: BLOOD SPECIMEN Ordering Facility: [facility] Address: [address] [place] [address] Performed By: #### 5 7021-8 #### [facility] CLIA [id number] [address] [place] [address] [place] Differential cell count method Nom (Bld) Auto Normal [facility] Comment on above: Order Comment: Speci men Type: BLOOD SPECIMEN Ordering Facility: [facility] Address: [address] [place] [address] Performed By: #### 5 7021-8 #### [facility] CLIA [id number] [address] [place] [address] [place] Eosinophils (Bld) [#/Vol] 10*3/uL Normal <0.46 [facility] Comment on above: Order Comment: Speci men Type: BLOOD SPECIMEN Ordering Facility: [facility] Address: [address] [place] [address] Performed By: #### 5 7021-8 #### [facility] CLIA [id number] [address] [place] [address] [place] Eosinophils/100 WBC (Bld) 0.2 % Normal [facility] Comment on above: Order Comment: Speci men Type: BLOOD SPECIMEN Ordering Facility: [facility] Address: [address] [place] [address] Performed By: #### 5 7021-8 #### [facility] CLIA [id number] [address] [place] [address] [place] Erythrocyte distribution width (RBC) [Ratio] 16.5 % High 11.5-15.0 [facility] Comment on above: Order Comment: Speci men Type: BLOOD SPECIMEN Ordering Facility: [facility] Address: [address] [place], [place] [id number] Performed By: #### 5 7021-8 #### [facility] CLIA [id number] [address] [place] [address] [place] Hematocrit (Bld) [Volume fraction] 43.8 % Normal 39.0-51.0 [facility] Comment on above: Order Comment: Speci men Type: BLOOD SPECIMEN Ordering Facility: [facility] Address: [address] [place] [address] Performed By: #### 5 7021-8 #### [facility] CLIA [id number] [address] [place] [address] [place] Hemoglobin (Bld) [Mass/Vol] 13.7 g/dL Normal 13.0-17.0 [facility] Comment on above: Order Comment: Speci men Type: BLOOD SPECIMEN Ordering Facility: [facility] Address: [address] [place] [address] Performed By: #### 5 7021-8 #### [facility] CLIA [id number] [address] [place] [address] [place] Immature granulocytes (Bld) [#/Vol] 0.04 10*3/uL Normal <0.10 [facility] Comment on above: Order Comment: Speci men Type: BLOOD SPECIMEN Ordering Facility: [facility] Address: [address] [place] [address] Performed By: #### 5 7021-8 #### [facility] CLIA [id number] [address] [place] [address] [place] Immature granulocytes/100 WBC (Bld) 0.7 % Normal [facility] Comment on above: Order Comment: Speci men Type: BLOOD SPECIMEN Ordering Facility: [facility] Address: [address] [place] [address] Performed By: #### 5 7021-8 #### [facility] CLIA [id number] [address] [place] [address] [place] Lymphocytes (Bld) [#/Vol] 0.74 10*3/uL Low 1.00-4.00 [facility] Comment on above: Order Comment: Speci men Type: BLOOD SPECIMEN Ordering Facility: [facility] Address: [address] [place] [address] Performed By: #### 5 7021-8 #### [facility] CLIA [id number] [address] [place] [address] [place] Lymphocytes/100 WBC (Bld) 12.4 % Normal [facility] Comment on above: Order Comment: Speci men Type: BLOOD SPECIMEN Ordering Facility: [facility] Address: [address] [place] [address] Performed By: #### 5 7021-8 #### [facility] CLIA [id number] [address] [place] [address] [place] MCH (RBC) [Entitic mass] 25.0 pg Low 26.0-34.0 [facility] Comment on above: Order Comment: Speci men Type: BLOOD SPECIMEN Ordering Facility: [facility] Address: [address] [place] [address] Performed By: #### 5 7021-8 #### [facility] CLIA [id number] [address] [place] [address] [place] MCHC (RBC) [Mass/Vol] 31.3 g/dL Normal 30.5-36.0 [facility] Comment on above: Order Comment: Speci men Type: BLOOD SPECIMEN Ordering Facility: [facility] Address: [address] [place] [address] Performed By: #### 5 7021-8 #### [facility] CLIA [id number] [address] [place] [address] [place] MCV (RBC) [Entitic vol] 79.9 fL Low 80.0-100.0 [facility] Comment on above: Order Comment: Speci men Type: BLOOD SPECIMEN Ordering Facility: [facility] Address: [address] [place] [address] Performed By: #### 5 7021-8 #### [facility] CLIA [id number] [address] [place] [address] [place] Monocytes (Bld) [#/Vol] 0.32 10*3/uL Normal <0.87 [facility] Comment on above: Order Comment: Speci men Type: BLOOD SPECIMEN Ordering Facility: [facility] Address: [address] [place] [address] Performed By: #### 5 7021-8 #### [facility] CLIA [id number] [address] [place] [address] [place] Monocytes/100 WBC (Bld) 5.4 % Normal [facility] Comment on above: Order Comment: Speci men Type: BLOOD SPECIMEN Ordering Facility: [facility] Address: [address] [place] [address] Performed By: #### 5 7021-8 #### [facility] CLIA [id number] [address] [place] [address] [place] Neutrophils (Bld) [#/Vol] 4.84 10*3/uL Normal 1.45-7.50 [facility] Comment on above: Order Comment: Speci men Type: BLOOD SPECIMEN Ordering Facility: [facility] Address: [address] [place] [address] Performed By: #### 5 7021-8 #### [facility] CLIA [id number] [address] [place] [address] [place] Neutrophils/100 WBC (Bld) 81.1 % Normal [facility] Comment on above: Order Comment: Speci men Type: BLOOD SPECIMEN Ordering Facility: [facility] Address: [address] [place] [address] Performed By: #### 5 7021-8 #### [facility] CLIA [id number] [address] [place] [address] [place] Nucleated RBC (Bld) [#/Vol] 10*3/uL Normal <0.01 [facility] Comment on above: Order Comment: Speci men Type: BLOOD SPECIMEN Ordering Facility: [facility] Address: [address] [place] [address] Performed By: #### 5 7021-8 #### [facility] CLIA [id number] [address] [place] [address] [place] Nucleated RBC/100 WBC (Bld) [Ratio] 0.0 /100 WBC Normal [facility] Comment on above: Order Comment: Speci men Type: BLOOD SPECIMEN Ordering Facility: [facility] Address: [address] [place] [address] Performed By: #### 5 7021-8 #### [facility] CLIA [id number] [address] [place] [address] [place] Platelet mean volume (Bld) [Entitic vol] 9.8 fL Normal 9.0-12.7 [facility] Comment on above: Order Comment: Speci men Type: BLOOD SPECIMEN Ordering Facility: [facility] Address: [address] [place] [address] Performed By: #### 5 7021-8 #### [facility] CLIA [id number] [address] [place] [address] [place] Platelets (Bld) [#/Vol] 183 10*3/uL Normal 150-400 [facility] Comment on above: Order Comment: Speci men Type: BLOOD SPECIMEN Ordering Facility: [facility] Address: [address] [place] [address] Performed By: #### 5 7021-8 #### [facility] CLIA [id number] [address] [place] [address] [place] RBC (Bld) [#/Vol] 5.48 10*6/uL Normal 4.20-6.00 [facility] Comment on above: Order Comment: Speci men Type: BLOOD SPECIMEN Ordering Facility: [facility] Address: [address] [place] [address] Performed By: #### 5 7021-8 #### [facility] CLIA [id number] [address] [place] [address] [place] WBC (Bld) [#/Vol] 5.96 10*3/uL Normal 3.70-11.00 [facility] Comment on above: Order Comment: Speci men Type: BLOOD SPECIMEN Ordering Facility: [facility] Address: [address] [place] [address] Performed By: #### 5 7021-8 #### [facility] CLIA [id number] [address] [place] [address] [place] Comprehensive metabolic 2000 panelon 04-26-2024 Albumin [Mass/Vol] 3.8 g/dL Low 3.9-4.9 [facility] Comment on above: Order Comment: Speci men Type: BLOOD SPECIMEN Ordering Facility: [facility] Address: [address] [place] [address] Performed By: #### I FESC #### [facility] CLIA [id number] [address] [place] [address] [place] ALP [Catalytic activity/Vol] 81 U/L Normal 38-113 [facility] Comment on above: Order Comment: Speci men Type: BLOOD SPECIMEN Ordering Facility: [facility] Address: [address] [place] [address] Performed By: #### I FESC #### [facility] CLIA [id number] [address] [place] [address] [place] ALT [Catalytic activity/Vol] 9 U/L Low 10-54 [facility] Comment on above: Order Comment: Speci men Type: BLOOD SPECIMEN Ordering Facility: [facility] Address: [address] [place], [place] [id number] Performed By: #### I FESC #### [facility] CLIA [id number] [address] [place] [address] [place] Anion gap [Moles/Vol] 8 mmol/L Normal 8-15 [facility] Comment on above: Order Comment: Speci men Type: BLOOD SPECIMEN Ordering Facility: [facility] Address: [address] [place] [address] Performed By: #### I FESC #### [facility] CLIA [id number] [address] [place] [address] [place] AST [Catalytic activity/Vol] 8 U/L Low 14-40 [facility] Comment on above: Order Comment: Speci men Type: BLOOD SPECIMEN Ordering Facility: [facility] Address: [address] [place] [address] Performed By: #### I FESC #### [facility] CLIA [id number] [address] [place] [address] [place] Bilirubin [Mass/Vol] 0.5 mg/dL Normal 0.2-1.3 [facility] Comment on above: Order Comment: Speci men Type: BLOOD SPECIMEN Ordering Facility: [facility] Address: [address] [place] [address] Performed By: #### I FESC #### [facility] CLIA [id number] [address] [place] [address] [place] Calcium [Mass/Vol] 9.1 mg/dL Normal 8.5-10.2 [facility] Comment on above: Order Comment: Speci men Type: BLOOD SPECIMEN Ordering Facility: [facility] Address: [address] [place] [address] Performed By: #### I FESC #### [facility] CLIA [id number] [address] [place] [address] [place] Chloride [Moles/Vol] 99 mmol/L Normal 98-107 [facility] Comment on above: Order Comment: Speci men Type: BLOOD SPECIMEN Ordering Facility: [facility] Address: [address] [place] [address] Performed By: #### I FESC #### [facility] CLIA [id number] [address] [place] [address] [place] CO2 [Moles/Vol] 29 mmol/L Normal 22-30 [facility] Comment on above: Order Comment: Speci men Type: BLOOD SPECIMEN Ordering Facility: [facility] Address: [address] [place] [address] Performed By: #### I FESC #### [facility] CLIA [id number] [address] [place] [address] [place] Creatinine [Mass/Vol] 0.86 mg/dL Normal 0.73-1.22 [facility] Comment on above: Order Comment: Speci men Type: BLOOD SPECIMEN Ordering Facility: [facility] Address: [address] [place] [address] Performed By: #### I FESC #### [facility] CLIA [id number] [address] [place] [address] [place] Creatinine and Glomerular filtration rate.predicted panel (S/P/Bld) 92 mL/min/1.73m??? Normal >=60 [facility] Comment on above: Order Comment: Speci men Type: BLOOD SPECIMEN Ordering Facility: [facility] Address: [address] [place] [address] Result Comment: Aleyda mated Glomerular Filtration Rate (eGFR) is calculated using the 2020 CKD-EPI creatinine equation. This equation utilizes serum creatinine, sex, and age as parameters. The creatinine assay has traceable calibration to isotope dilution-mass spectrometry. Refer to KDIGO guidelines for clinical interpretation. In patients with unstable renal function, e.g. those with acute kidney injury, the eGFR may not accurately reflect actual GFR. Performed By: #### I FESC #### [facility] CLIA [id number] [address] [place] [address] [place] Glucose [Mass/Vol] 129 mg/dL High 74-99 [facility] Comment on above: Order Comment: Speci men Type: BLOOD SPECIMEN Ordering Facility: [facility] Address: [address] [place] [address] Result Comment: The [place] [employer] (ADA) provides guidance for cutoff values for fasting glucose and random glucose. The ADA defines fasting as no caloric intake for at least 8 hours. Fasting plasma glucose results between 100 to 125 mg/dL indicate increased risk for diabetes (prediabetes). Fasting plasma glucose results greater than or equal to 126 mg/dL meet the criteria for diagnosis of diabetes. In the absence of unequivocal hyperglycemia, results should be confirmed by repeat testing. In a patient with classic symptoms of hyperglycemia or hyperglycemic crisis, random plasma glucose results greater than or equal to 200 mg/dL meet the criteria for diagnosis of diabetes. Reference: Standards of Medical Care in Diabetes 2016, [place] [employer]. Diabetes Care. 2016.39(Suppl 1). Performed By: #### I FESC #### [facility] CLIA [id number] [address] [place] [address] [place] Potassium [Moles/Vol] 4.0 mmol/L Normal 3.7-5.1 [facility] Comment on above: Order Comment: Speci men Type: BLOOD SPECIMEN Ordering Facility: [facility] Address: [address] [place] [address] Performed By: #### I FESC #### [facility] CLIA [id number] [address] [place] [address] [place] Protein [Mass/Vol] 6.0 g/dL Low 6.3-8.0 [facility] Comment on above: Order Comment: Jesis men Type: BLOOD SPECIMEN Ordering Facility: [facility] Address: [address] [place] [address] Performed By: #### I FESC #### [facility] CLIA [id number] [address] [place] [address] [place] Sodium [Moles/Vol] 136 mmol/L Normal 136-144 [facility] Comment on above: Order Comment: Speci men Type: BLOOD SPECIMEN Ordering Facility: [facility] Address: [address] [place] [address] Performed By: #### I FESC #### [facility] CLIA [id number] [address] [place] [address] [place] Urea nitrogen [Mass/Vol] 20 mg/dL Normal 9-24 [facility] Comment on above: Order Comment: Speci men Type: BLOOD SPECIMEN Ordering Facility: [facility] Address: [address] [place] [address] Performed By: #### I FESC #### [facility] CLIA [id number] [address] [place] [address] [place] IMMUNOFIXATION SCREEN, SERUM on 04-26-2024 MPA RESULT No M protein is identified. Normal No M protein is identified. [facility] Comment on above: Order Comment: Speci men Type: BLOOD SPECIMEN Ordering Facility: [facility] Address: [address] [place] [address] Performed By: #### I FESC #### [facility] CLIA [id number] [address] [place] [address] [place] STAFF REVIEW (MPA) Reviewed by Vandana patel MD [facility] Comment on above: Order Comment: Speci men Type: BLOOD SPECIMEN Ordering Facility: [facility] Address: [address] [place] [address] Performed By: #### I FESC #### [facility] CLIA [id number] [address] [place] [address] [place] IMMUNOGLOBULINS,IGG,IGA,IGMo n 04-26-2024 IgA [Mass/Vol] 72 mg/dL Normal 70-400 [facility] Comment on above: Order Comment: Speci men Type: BLOOD SPECIMEN Ordering Facility: [facility] Address: [address] [place] [address] Performed By: #### 5 7021-8 #### [facility] CLIA [id number] [address] [place] [address] [place] IgG [Mass/Vol] 627 mg/dL Low 700-1600 [facility] Comment on above: Order Comment: Speci men Type: BLOOD SPECIMEN Ordering Facility: [facility] Address: [address] [place] [address] Performed By: #### 5 7021-8 #### [facility] CLIA [id number] [address] [place] [address] [place] IgM [Mass/Vol] 49 mg/dL Normal 40-230 [facility] Comment on above: Order Comment: Speci men Type: BLOOD SPECIMEN Ordering Facility: [facility] Address: [address] [place] [address] Performed By: #### 5 7021-8 #### [facility] CLIA [id number] [address] [place] [address] [place] KAPPA/PHAN,FREE,SERon 2023 Immunoglobulin light chains.kappa.free (S) [Mass/Vol] 18.5 mg/L Normal 3.3-19.4 [facility] Comment on above: Order Comment: Speci men Type: BLOOD SPECIMENOrdering Facility: [facility] Address: [address] [place] [address] Result Comment: Rare ly, increased serum free light chains levels may not be detected or accurately quantified due to prozone phenomenon or in high viscosity samples using this immunoturbidimetric assay. Correlation with other laboratory results and clinical findings is recommended. The Bootjack Free Light Chain was performed using the Binding Site Optilite immunoturbidimetric method. Result obtained with different assay methods or kits cannot be used interchangeably. Performed By: #### K LFRS ####[facility] [id number] [place] [address], [place] [address] [place] Immunoglobulin light chains.kappa/Immunog lobulin light chains.lambda (S) [Mass ratio] 1.17 Normal 0.26-1.65 [facility] Comment on above: Order Comment: Speci men Type: BLOOD SPECIMENOrdering Facility: [facility] Address: [address] [place] [address] Performed By: #### K LFRS ####[facility] [id number] [place] [address] [place] Immunoglobulin light chains.lambda.free [Mass/Vol] 15.8 mg/L Normal 5.7-26.3 [facility] Comment on above: Order Comment: Speci men Type: BLOOD SPECIMENOrdering Facility: [facility] Address: [address] [place] [address] Result Comment: Rare ly, increased serum free light chains levels may not be detected or accurately quantified due to prozone phenomenon or in high viscosity samples using this immunoturbidimetric assay. Correlation with other laboratory results and clinical findings is recommended. The Lambda Free Light Chain was performed using the Binding Site Optilite immunoturbidimetric method. Result obtained with different assay methods or kits cannot be used interchangeably. Performed By: #### K LFRS ####[facility] [id number] [place] [address] [place] PROTEIN ELECTROPHORESIS SERU M (P)on 04-26-2024 Albumin [Mass/Vol] 3.39 g/dL Low 3.43-5.41 [facility] Comment on above: Order Comment: Speci men Type: BLOOD SPECIMEN Ordering Facility: [facility] Address: [address] [place] [address] Performed By: #### L [id number] #### [facility] CLIA [id number] [address] [place] [address] [place] Alpha 1 globulin Elph [Mass/Vol] 0.33 g/dL Normal 0.18-0.43 [facility] Comment on above: Order Comment: Speci men Type: BLOOD SPECIMEN Ordering Facility: [facility] Address: [address] [place] [address] Performed By: #### L [id number] #### [facility] CLIA [id number] [address] [place] [address] [place] Alpha 2 globulin Elph [Mass/Vol] 0.77 g/dL Normal 0.42-0.98 [facility] Comment on above: Order Comment: Speci men Type: BLOOD SPECIMEN Ordering Facility: [facility] Address: [address] [place] [address] Performed By: #### L [id number] #### [facility] CLIA [id number] [address] [place] [address] [place] Beta globulin Elph [Mass/Vol] 0.65 g/dL Normal 0.61-1.17 [facility] Comment on above: Order Comment: Speci men Type: BLOOD SPECIMEN Ordering Facility: [facility] Address: [address] [place] [address] Performed By: #### L [id number] #### [facility] CLIA [id number] [address] [place] [address] [place] Gamma globulin Elph [Mass/Vol] 0.47 g/dL Low 0.53-1.51 [facility] Comment on above: Order Comment: Speci men Type: BLOOD SPECIMEN Ordering Facility: [facility] Address: [address] [place] [address] Performed By: #### L [id number] #### [facility] CLIA [id number] [address] [place] [address] [place] INTERPRETATION COMMENT FOR PROTEIN ELECTROPHORESIS Hypogammaglobulinemia is present, which can be seen in the setting of monoclonal gammopathy. If clinically indicated, monoclonal protein analysis and serum free light chain analysis are suggested to evaluate further for monoclonal gammopathy. Normal [facility] Comment on above: Order Comment: Speci men Type: BLOOD SPECIMEN Ordering Facility: [facility] Address: [address] [place] [address] Performed By: #### L [id number] #### [facility] CLIA [id number] [address] [place] [address] [place] M-PROTEIN LOCATION Normal [facility] Comment on above: Order Comment: Speci men Type: BLOOD SPECIMEN Ordering Facility: [facility] Address: [address] [place] [address] Result Comment: Not Applicable. Performed By: #### L [id number] #### [facility] CLIA [id number] [address] [place] [address] [place] Protein Fractions [Interp] No definitive M protein is identified on protein electrophoresis. Normal No definitive M protein is identified on protein electrophore sis. [facility] Comment on above: Order Comment: Speci men Type: BLOOD SPECIMEN Ordering Facility: [facility] Address: [address] [place] [address] Performed By: #### L [id number] #### [facility] CLIA [id number] [address] [place] [address] [place] Protein.monoclonal Elph [Mass/Vol] 0.00 g/dL Normal <=0.00 [facility] Comment on above: Order Comment: Speci men Type: BLOOD SPECIMEN Ordering Facility: [facility] Address: [address] [place] [address] Performed By: #### L [id number] #### [facility] CLIA [id number] [address] [place] [address] [place] SPE STAFF REVIEW Reviewed by Vandana patel MD Normal [facility] Comment on above: Order Comment: Speci men Type: BLOOD SPECIMEN Ordering Facility: [facility] Address: [address] [place] [address] Performed By: #### L [id number] #### [facility] CLIA [id number] [address] [place] [address] [place] Prot SerPl-mCncon 04-26-2024 Protein [Mass/Vol] 5.6 g/dL Low 6.3-8.0 [facility] Comment on above: Order Comment: Speci men Type: BLOOD SPECIMEN Ordering Facility: [facility] Address: [address] [place] [address] Performed By: #### I FESC #### [facility] CLIA [id number] [address] [facility] [id number] [place] [address] [place] PT D/C Summary (1)on 024 PT D/C Summary (1) [facility] Physical Therapy [address] [place] [address] / REHABILITATION SERVICES DISCHARGE SUMMARY MR#: [id number] Acct: [id number] Name: RONNIE YARBROUGH Rep #: [id number] : 1950 73 From: Chuck Veliz DPT Referring Dr.: LEO Rivera Status: REG RCR Insurance: [facility] [employer] Discharge Summary D/C summary: It has been my pleasure to treat RONNIE YARBROUGH referred by LEO Warner, with the diagnosis of L2-S1 fusion (DOS aug 2023) for a total of 16 visit(s). Discharge Date: 04/25/24 Please see the following information for a summary of their discharge status. Subjective Subjective: Pt. reports having some pain in his back, soreness. Pt. reports being 80% better overall. Pain Lumbar spine: Pain Intensity (Out of 10): 2 Overall Improvement % Improvement: 80 Objective Objective/Function: MMT: RLE: ankle: DF 51.1#, PF 49.3#; knee: Ext 51.9#, flexion 31.1#; hip: flexion 19.6#, abd 17.8# LLE: ankle: DF 49.9#, PF 51.9#; knee: ext 49.1#, flexion 19.6#; hip: flexion 21.5#, abd 18.3# GAIT: Pt. ambulated very well with SPC this date. Much improved postural sway. Pt. does have a slight forward flexed posture with gait. He did walk without AD, which was also much improved. Pt. reported no increase in symptoms with out use of AD. Overall much reduced trunk sway with gait. STAIRS: 1 HR with reciprocal pattern without LOB. TUG 10.3sec without AD FGA , greatest difficulty was with narrow RUPAL and with eyes closed. Goals Goal 1:: LTG: Pt. to be I with HEP for home and gym exercises. Goal Progress: Goal Met Goal 2:: STG: Pt. to be I with home program to take on his trip for core stability. Goal 3:: LTG: Pt. to have an increased in BLE strength by 10# throughout. Goal Progress: Goal Met Goal 4:: LTG: Pt. to be able to have normal and safe gait pattern without use of AD. Goal Progress: Goal Met Goal 5:: LTG: Pt. to have improved FGA to 23/30 indicated increased stability in stance. Goal Progress: Goal Met Plan Plan: Pt. is going on a missions trip. I talked to him about completing his exercises on his own at this point in time. He did consent to this. He was hesitant due to wanting to continue. Pt. is to complete his exercises for the next month. He is still seeing Daniel for his Vestibular activities. He will re check with him in a month once he gets back. D/C Information d/c sentence: If there are questions or concerns regarding this patient's physical therapy, please feel free to call me at [phone]. Thank you for the referral of this patient. Sincerely, Chuck Veliz DPT Balance/Gait/Functional tests Balance/Special Test Scores Functional Gait Assessment Score: 24 % Disability: 20.0000 Oswestry Low Back Score: 12 Dizziness Score: 22 TUG Test Time Seconds: 10.3 Tug Test: <20 sec.=mostly independent Improvement % Improvement: 80 04/25/24 0733 CC: LEO Rivera; Dr. Ovidio Vincent MD CLS Signed [facility] Initial Evaluation (2) - PTo n 04-22-2024 Initial Evaluation (2) - PT [facility] [address] [place] [address]. [address] [place] [address] / REHABILITATION SERVICES INITIAL EVALUATION MR#: [id number] Acct: [id number] Name: RONNIE YARBROUGH Rep #: [id number] : 1950 73 From: Daniel Gupta DPT, OCS, CSCS Referring Dr.: LEO Warner Status: REG RCR Insurance: [facility] SELF PAY INSURANCE Patient's Visit Information Visit Information Visit Information: RONNIE YARBROUGH is a 73 year old M referred to Physical Therapy by LEO Warner with a diagnosis of vertigo. Date of Evaluation: 04/22/24 Physical Therapist: Daniel Gupta DPT, SAYDA, CSCS Visit Plan Frequency: 1x/Week Duration: 2 Months Plan: Pt has been in PT for balance for a couple months now and is feeling better. I have added to that habituation head movement ex today in a safe sitting position as patient is going on a 3 week mission trip. He will f/u upon return for progression of these habituation ex to balance with head movements as needed and further MSQ exploration. Subjective Subjective: Getting up in the morning cannot pop right out of bed, spins when he sits up for a few seconds. Bending over will make it happen also. Walking in dark is dangerous unsteady. Uses cane to get around for the last two years. Has been getting this dizzy for 3 yrs. [id number] is Ok and he sleeps flat in bed and moves around. Activiities are avoiding climbing ladders but won't let him anyway. Worksout in gym 5 days per week and no dizzyness at . Basic ADLs are getting done slowly. bending is main problem. Hobbies: woodworking used to be but bending over the tablesaw can be dangerous so has stopped. Will go on mission trip this weekend and gone 3 weeks, to [place]. 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 No falls lately and has been working on balance for the last couple months with another therapist here, just wants vestibular system checked out. Has some neuropathy in feet. No falls. Objective Objective: Walks with cane in to T mod I slow iwth neuropathic gait pattern avoiding FW weight shift and push off . trasnfers I with UE. Steps reciprocal with one rail and avoids forefoot WB. cervical AROM is limited to 20 ext and 40 B rotation. UE AROM is limited L UE due to shoulder OA 100 degrees and L to 130, functional. Positional testing: - B HD, - roll test Oculomotor: no nystagmus today with gaze or head shake normal purusuit and saccades without symptoms. VOR normal with slight symptoms quickly. H and V. - head thrust - skew eye deviation - ocular tilt head turns and nods and up from HD and up form knee all give quick dizzy feeling. Balance/Special Gait Scores Functional Gait Assessment Score: 20 % Disability: 33.3400 Goals Goal 1:: Sit up in am without dizzyness Goal Time Frame: 6-8 Weeks Goal 2:: bend and recover without symptoms Goal Time Frame: 6-8 Weeks Goal 3:: I appropriate ex to manage condition Goal Time Frame: 6-8 Weeks Rehabilitation Potential Physical Therapy Diagnosis: dizzyness with position change, possibly vestibular component but no BPPV Rehabilitation Potential: Fair Anticipated Interventions Patient/Client Instruction: Educate patient on: Condition and Risk Factors For the Purpose of:: To increase tolerance to activity/condition/position For the Purpose of:: To increase tolerance to activity/condition/position, To improve ability of physical actions for home/community/work/leisure and To improve safety text: Thank you for the opportunity to evaluate your patient. For Medicare and Medicare HMO plans, please review the plan of care and approve it. It will need to be FAXED BACK to us at [phone] for Medicare purposes. For Medicare only, by signing this I certify the plan of care. Please let me know if there are questions or concerns regarding this plan of care. Physician Signature: ___Date: 04/22/24 0744 CC: LEO Rivera; Dr. Ovidio Vincent MD EBG Signed [facility] 25([place])D3 [facility] 2023 25-hydroxyvitamin D3 [Mass/Vol] 34.7 ng/mL Normal 31.0-80.0 [facility] Comment on above: Order Comment: Speci men Type: BLOOD SPECIMEN Ordering Facility: [facility] Address: [address] [place] [address] Result Comment: Clas sification of 25 [place] Vitamin D status: Deficiency/Insufficiency: < or = 30 ng/ml. Sufficiency/Optimal Levels: 31-80 ng/mL Toxicity: > 100 ng/mL. Test performed by chemiluminescent immunoassay. Performed By: #### 5 7021-8 #### [facility] CLIA [id number] [address] [place] [address] [place] ALBUMIN/CREATININE RATIO, UR INEon 04-16-2024 Albumin DL <= 20 mg/L (U) [Mass/Vol] 17.3 mg/L Normal [facility] Comment on above: Order Comment: Speci men Type: URINE SPECIMEN Ordering Facility: [facility] Address: [address] [place] [address] Performed By: #### U ACR #### [facility] CLIA [id number] [address] [place] [address] [place] Albumin/Creatinine (U) [Mass ratio] 14 mg/g Normal <30 [facility] Comment on above: Order Comment: Carlyi april Type: URINE SPECIMEN Ordering Facility: [facility] Address: [address] [place] [address] Result Comment: Adul t Male and Female Nephrotic Criteria: <30 mg/g is considered normal to mildly increased 30-300 mg/g is considered moderately increased >300 mg/g is considered severely increased KDIGO. (2013). KDIGO 2012 Clinical Practice Guideline for the Evaluation and Management of Chronic Kidney Disease. Official Journal of the International Society of Nephrology, 3(1), 1-150. Performed By: #### U ACR #### [facility] CLIA [id number] [address] [place] [address] [place] Creatinine (U) [Mass/Vol] 122.5 mg/dL Normal 20.0-300.0 [facility] Comment on above: Order Comment: Speci men Type: URINE SPECIMEN Ordering Facility: [facility] Address: [address] [place] [address] Performed By: #### U ACR #### [facility] CLIA [id number] [address] [facility] [place] [id number] [address] [place] CBC W Auto Differential pane l (Bld)on 04-16-2024 Basophils (Bld) [#/Vol] 10*3/uL Normal <0.11 [facility] Comment on above: Order Comment: Speci men Type: BLOOD SPECIMEN Ordering Facility: [facility] Address: [address] [place] [address] Performed By: #### 5 7021-8 #### [id number] [address] [place] [address] [place] Basophils/100 WBC (Bld) 0.1 % Normal [facility] Comment on above: Order Comment: Speci men Type: BLOOD SPECIMEN Ordering Facility: [facility] Address: [address] [place] [address] Performed By: #### 5 7021-8 #### [facility] [id number] [address] [place] [address] [place] Differential cell count method Nom (Bld) Auto Normal [facility] Comment on above: Order Comment: Speci men Type: BLOOD SPECIMEN Ordering Facility: [facility] Address: [address] [place] [address] Performed By: #### 5 7021-8 #### [facility] CLIA [id number] [address] [place] [address] [place] Eosinophils (Bld) [#/Vol] 10*3/uL Normal <0.46 [facility] Comment on above: Order Comment: Speci men Type: BLOOD SPECIMEN Ordering Facility: [facility] Address: [address] [place] [address] Performed By: #### 5 7021-8 #### [facility] CLIA [id number] [address] [place] [address] [place] Eosinophils/100 WBC (Bld) 0.2 % Normal [facility] Comment on above: Order Comment: Speci men Type: BLOOD SPECIMEN Ordering Facility: [facility] Address: [address] [place] [address] Performed By: #### 5 7021-8 #### [facility] CLIA [id number] [address] [place] [address] [place] Erythrocyte distribution width (RBC) [Ratio] 17.4 % High 11.5-15.0 [facility] Comment on above: Order Comment: Speci men Type: BLOOD SPECIMEN Ordering Facility: [facility] Address: [address] [place] [address] Performed By: #### 5 7021-8 #### [facility] CLIA [id number] [address] [place] [address] [place] Hematocrit (Bld) [Volume fraction] 46.8 % Normal 39.0-51.0 [facility] Comment on above: Order Comment: Speci men Type: BLOOD SPECIMEN Ordering Facility: [facility] Address: [address] [place] [address] Performed By: #### 5 7021-8 #### [facility] CLIA [id number] [address] [place] [address] [place] Hemoglobin (Bld) [Mass/Vol] 14.4 g/dL Normal 13.0-17.0 [facility] Comment on above: Order Comment: Speci men Type: BLOOD SPECIMEN Ordering Facility: [facility] Address: [address] [place] [address] Performed By: #### 5 7021-8 #### [facility] CLIA [id number] [address] [place] [address] [place] Immature granulocytes (Bld) [#/Vol] 0.06 10*3/uL Normal <0.10 [facility] Comment on above: Order Comment: Speci men Type: BLOOD SPECIMEN Ordering Facility: [facility] Address: [address] [place] [address] Performed By: #### 5 7021-8 #### [facility] CLIA [id number] [address] [place] [address] [place] Immature granulocytes/100 WBC (Bld) 0.7 % Normal [facility] Comment on above: Order Comment: Speci men Type: BLOOD SPECIMEN Ordering Facility: [facility] Address: [address] [place] [address] Performed By: #### 5 7021-8 #### [facility] CLIA [id number] [address] [place] [address] [place] Lymphocytes (Bld) [#/Vol] 0.87 10*3/uL Low 1.00-4.00 [facility] Comment on above: Order Comment: Speci men Type: BLOOD SPECIMEN Ordering Facility: [facility] Address: [address] [place] [address] Performed By: #### 5 7021-8 #### [facility] CLIA [id number] [address] [place] [address] [place] Lymphocytes/100 WBC (Bld) 9.8 % Normal [facility] Comment on above: Order Comment: Speci men Type: BLOOD SPECIMEN Ordering Facility: [facility] Address: [address] [place] [address] Performed By: #### 5 7021-8 #### [id number] [address] [place] [address] [place] MCH (RBC) [Entitic mass] 25.6 pg Low 26.0-34.0 [facility] Comment on above: Order Comment: Speci men Type: BLOOD SPECIMEN Ordering Facility: [facility] Address: [address] [place] [address] Performed By: #### 5 7021-8 #### [facility] CLIA [id number] [address] [place] [address] [place] MCHC (RBC) [Mass/Vol] 30.8 g/dL Normal 30.5-36.0 [facility] Comment on above: Order Comment: Speci men Type: BLOOD SPECIMEN Ordering Facility: [facility] Address: [address] [place] [address] Performed By: #### 5 7021-8 #### [facility] CLIA [id number] [address] [place] [address] [place] MCV (RBC) [Entitic vol] 83.1 fL Normal 80.0-100.0 [facility] Comment on above: Order Comment: Speci men Type: BLOOD SPECIMEN Ordering Facility: [facility] Address: [address] [place] [address] Performed By: #### 5 7021-8 #### [facility] CLIA [id number] [address] [place] [address] [place] Monocytes (Bld) [#/Vol] 0.62 10*3/uL Normal <0.87 [facility] Comment on above: Order Comment: Speci men Type: BLOOD SPECIMEN Ordering Facility: [facility] Address: [address] [place] [address] Performed By: #### 5 7021-8 #### [facility] CLIA [id number] [address] [place] [address] [place] Monocytes/100 WBC (Bld) 7.0 % Normal [facility] Comment on above: Order Comment: Speci men Type: BLOOD SPECIMEN Ordering Facility: [facility] Address: [address] [place], [place] [address] Performed By: #### 5 7021-8 #### [facility] CLIA [id number] [address] [place] [address] [place] Neutrophils (Bld) [#/Vol] 7.28 10*3/uL Normal 1.45-7.50 [facility] Comment on above: Order Comment: Speci men Type: BLOOD SPECIMEN Ordering Facility: [facility] Address: [address] [place] [address] Performed By: #### 5 7021-8 #### [facility] CLIA [id number] [address] [place] [address] [place] Neutrophils/100 WBC (Bld) 82.2 % Normal [facility] Comment on above: Order Comment: Speci men Type: BLOOD SPECIMEN Ordering Facility: [facility] Address: [address] [place] [address] Performed By: #### 5 7021-8 #### [facility] CLIA [id number] [address] [place] [address] [place] Nucleated RBC (Bld) [#/Vol] 10*3/uL Normal <0.01 [facility] Comment on above: Order Comment: Speci men Type: BLOOD SPECIMEN Ordering Facility: [facility] Address: [address] [place] [address] Performed By: #### 5 7021-8 #### [facility] CLIA [id number] [address] [place] [address] [place] Nucleated RBC/100 WBC (Bld) [Ratio] 0.0 /100 WBC Normal [facility] Comment on above: Order Comment: Speci men Type: BLOOD SPECIMEN Ordering Facility: [facility] Address: [address] [place] [address] Performed By: #### 5 7021-8 #### [facility] CLIA [id number] [address] [place] [address] [place] Platelet mean volume (Bld) [Entitic vol] 10.9 fL Normal 9.0-12.7 [facility] Comment on above: Order Comment: Speci men Type: BLOOD SPECIMEN Ordering Facility: [facility] Address: [address] [place], [place] [address] Performed By: #### 5 7021-8 #### [facility] CLIA [id number] [address] [place] [address] [place] Platelets (Bld) [#/Vol] 181 10*3/uL Normal 150-400 [facility] Comment on above: Order Comment: Speci men Type: BLOOD SPECIMEN Ordering Facility: [facility] Address: [address] [place], [place] [address] Performed By: #### 5 7021-8 #### [facility] CLIA [id number] [address] [place] [address] [place] RBC (Bld) [#/Vol] 5.63 10*6/uL Normal 4.20-6.00 [facility] Comment on above: Order Comment: Speci men Type: BLOOD SPECIMEN Ordering Facility: [facility] Address: [address] [place] [address] Performed By: #### 5 7021-8 #### [facility] CLIA [id number] [address] [place] [address] [place] WBC (Bld) [#/Vol] 8.86 10*3/uL Normal 3.70-11.00 [facility] Comment on above: Order Comment: Speci men Type: BLOOD SPECIMEN Ordering Facility: [facility] Address: [address] [place] [address] Performed By: #### 5 7021-8 #### [facility] CLIA [id number] [address] [place] [address] OF [place] CNOVon 04-16-2024 CNOV Office Visit (FAMPWS ) RONNIE YARBROUGH I ([id number]) 1950 M Date Time Provider Department 04/16/24 8:00 AM OVIDIO VINCENT During your visit today, we recorded the following information about you: Respiration Blood pressure Weight 18/minute 135/83 95.7 kg Ovidio Vincent MD 04/16/2024 9:32 AM Signed Chief Complaint Patient presents with: Dizziness HPI Ronnie Yarbrough is a 73 year old male who presents here today for Dizziness (spinning) 3 days ago patient woke up to severe neck pain. Unable to move his neck. No fall or known injury. Has applied heat with no relief. Has pain with moving his neck left and right. Patient has some chronic upper extremities neuropathy from his cervical neck degeneration. This has not increased and no weakness in his upper extremities. 2. Patient also has been having constant dizziness for quite some time. Patient has seen [facility] and they decreased his Coreg to 12.5 mg twice daily instead of 25 mg. They had increased it to to 25 mg and the dizziness increased to the point he was unable to drive. Since the decrease back to the 12.5 mg tablet he is able to now drive again. Patient was on heart monitor for 2 week per heart group. Everything was fine but mentioned that he had possible sleep apnea. Patient indicated that he was instructed to take off the monitor at night time and plug it. So he was not wearing it at night time. Patient has been getting this spinning sensation when going from laying to sitting for the about a year. Lasts a few min. No nausea or vomiting. Patient indicated that he has been doing PT for balance and that has been improving. No significant change in his hearing over the past year. No pressure in his ears. Denies headaches. Patient with hx of HTN, hyperlipidemia, COPD, neuropathy, DM2, GERD, recent DVT, paroxysmal A. Fib (seeing cardio) and those as below. Essential hypertension - ICD9: 401.9, ICD10: I10 - Controlled - Continue current medications - Recommend home blood pressure monitoring, to bring results to next visit - Encouraged sodium restriction, DASH or Mediterranean diet - Recommend regular aerobic exercise Type 2 diabetes mellitus with stage 3a chronic kidney disease, without long-term current use of insulin ([facility]) - ICD9: 250.40, 585.3, ICD10: E11.22, N18.31 6 mo ago (10/10/23) 8 mo ago (08/04/23) 1 yr ago (03/30/23) 1 yr ago (10/12/22) 1 yr ago (04/18/22) 2 yr ago (10/07/21) 3 yr ago (04/08/21) Hemoglobin A1C 4.3 - 5.6 % 7.2 High 7.1 Abnormal R 7.6 High CM 6.7 High CM 6.3 High CM 6.7 High CM 5.7 High CM Patient see [facility] last visit 09/2023 Paroxysmal atrial fibrillation ([facility]) - ICD9: 427.31, ICD10: I48.0 - patient see [facility] last visit 02/2024 Patient sees pulmonary last visit 11/2023 Past medical history, appointments, medications, allergies reviewed. 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 Day: +12; Engrafted Protocol(s): 3422 1C Preparative regimen: melphalan Mobilization regimen: neupogen and plerixafor Stem cell source: apheresis CD34 cell dose (x10e6/kg): 5.14 Date of transplant: 06/15/2018 Bilateral leg edema 09/30/2022 Cancer of the skin, 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 Cervical spondylosis without myelopathy COPD (chronic obstructive pulmonary disease) ([facility]) 03/15/2021 Diabetic eye exam ([facility]) 09/09/2021 Last done 09/09/[address] Juve Reza Dilated aortic root ([facility]) 06/04/2023 Seeing [facility] Discoloration and thickening of nails both feet 10/06/2021 ED (erectile dysfunction) of organic origin 07/04/2022 Enlarged LA (left atrium) 06/04/2023 Seeing [facility] Essential hypertension 06/13/2018 -On lisinopril 10mg daily ( home med) -Will d/c for now given hyperkalemia . 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 Normal [facility] CNPNon 04-16-2024 CNPN Telephone (FAMPWS) RONNIE YARBROUGH I ([id number]) 1950 M Date Time Provider Department 04/16/24 [facility] During your visit today, we recorded the following information about you: Ramu Alanis MA 04/16/2024 9:16 AM Signed Faxed Order Demo Last O/V To [facility]. Ramu Alanis MA Allergies As of Date: 04/16/2024 Noted Allergy Reaction GABAPENTIN 06/24/2018 14 - Other: See Comments Comments: Depression/suicidal ideation Date Reviewed: 04/16/2024 Reviewed by: Ramu Alanis MA - Fully Assessed Reason for Visit: Appointment [186] Cmt: PT - [facility] Prescriptions as of 04/16/2024 - dulaglutide (TRULICITY) 3 mg/0.5 mL pen injector Inject 3 mg subcutaneously one time a week. Inject once per week. Discard Pen After - Magnesium Oxide 250 mg magnesium tab Take two in the AM and one in the PM. - diazePAM (VALIUM) 2 mg tablet Take 1 tablet by mouth every 12 hours as needed for up to 15 days. - metFORMIN (GLUCOPHAGE) 1,000 mg tablet Take 1 tablet by mouth two times a day with meals. - omeprazole (PRILOSEC) 40 mg capsule TAKE ONE CAPSULE BY MOUTH ONCE DAILY ON AN EMPTY STOMACH - losartan (COZAAR) 25 mg tablet Take 1 tablet by mouth once daily. - carvedilol (COREG) 25 mg tablet Take 1 tablet by mouth two times a day with meals. Per [facility] - torsemide (DEMADEX) 20 mg tablet Take 1 tablet by mouth two times a day. . - dapagliflozin propanediol (FARXIGA) 10 mg tablet Take 1 tablet by mouth once daily. Take one daily in the morning - atorvastatin (LIPITOR) 40 mg tablet Take 1 tablet by mouth once daily. - Tadalafil (CIALIS) 20 mg tablet Take 1 tablet by mouth once daily. As needed - albuterol HFA (PROVENTIL HFA, VENTOLIN HFA) 90 mcg/actuation inhaler Inhale 2 Puffs as instructed every 6 hours as needed for wheezing/shortness of breath. - lmajievyhlp-roaujolzt-tqqvjx er (TRELEGY ELLIPTA) 100-62.5-25 mcg inhalation powder inhale 1 puff by mouth and INTO THE LUNGS once daily - aspirin, enteric coated (ASPIRIN, ENTERIC COATED) 81 mg EC tablet Take 1 tablet by mouth once daily. - Cholecalciferol, Vitamin D3, (VITAMIN D-3) 50 mcg (2,000 unit) cap Take 1 capsule by mouth once daily. - terbinafine HCl (LAMISIL) 250 mg tablet Take 1 tablet by mouth once daily. - cyanocobalamin (VITAMIN B-12) 1,000 mcg tab Take 1 tablet by mouth once daily. - Calcium-Cholecalciferol, D3, 600 mg-5 mcg (200 unit) cap Take 1 capsule by mouth once daily. Problem List As Of Date 04/16/2024 Noted Resolved Peripheral autonomic neuropathy in disorders cl*06/07/2005 Mixed hyperlipidemia [E78.2] 10/31/2006 Spinal stenosis, lumbar region, without neuroge*11/13/2006 GERD (gastroesophageal reflux disease) [K21.9] 12/27/2011 Tobacco abuse [Z72.0] 12/27/2011 10/01/2012 Special screening for malignant neoplasms, colo*09/06/2012 06/13/2018 Esophagitis, unspecified [K20.90] 09/25/2012 01/06/2014 Obesity, Class I, BMI 30-34.9 [E66.9] 10/01/2012 Venous insufficiency, peripheral [I87.2] 01/06/2014 11/25/2019 Acute bronchitis with chronic obstructive pulmo*12/30/2014 06/26/2017 Vitamin D deficiency [E55.9] 12/31/2014 Class 1 obesity due to excess calories with ser*06/26/2017 11/25/2019 Multiple myeloma (HCC) [C90.00] 11/28/2017 Adjustment insomnia [F51.02] 12/07/2017 05/14/2018 Multiple myeloma in remission (HCC) [C90.01] 12/07/2017 Leg DVT (deep venous thromboembolism), acute, l*01/02/2018 11/25/2019 Type 2 diabetes mellitus without complication, *04/12/2018 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, T38.0X5A]04/19/2018 05/14/2018 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] 06/13/2018 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/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 Bilateral lower extremity edema [R60.0] 06/13/2018 07/17/2018 Essential hypertension [I10] 06/13/2018 JOSE ENRIQUE (acute kidney injury) (HCC) [N17.9] 06/16/2018 06/18/2018 Hyperkalemia [E87.5] 06/18/2018 2018 Chemotherapy induced nausea and vomiting [R11.2*06/18/2018 07/02/2018 Difficulty coping [R45.89] 06/20/2018 06/26/2018 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) [D61.810]06/25/2018 Fall [W19.XXXA] 07/17/2018 11/25/2019 Acute on chronic systolic CHF (congestive heart*10/04/2019 11/25/2019 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] 10/04/2019 Shortness of breath [R06.02] 10/22/2019 11/25/2019 Chest pressure [R07.89] 10/23/2019 11/25/2019 Pulmonary hypertension, unspecified (HCC) [I27.*10/23/2019 Wheezing [R06.2] 10/23/2019 11/25/2019 Lung nodules [R91.8] 10/23/2019 Ex-smoker [Z87.891] 03/15/2021 COPD (chronic obstructive pulmonary disease) (H*03/15/2021 Allergic rhinitis [J30.9] 03/15/2021 Medication management [Z79.899] 03/15/2021 Cancer of the skin, basal cell [C44.91] 04/21/2021 Low serum vitamin B12 [E53.8] 04/22/2021 Hypomagnesemia [E83.42] 04/22/2021 Diabetic eye exam (HCC) [Z01.00, E11.9] 09/09/2021 Medicare lizette (more content not included)... Normal [facility] Comprehensive metabolic 2000 panelon 04-16-2024 Albumin [Mass/Vol] 4.1 g/dL Normal 3.9-4.9 [facility] Comment on above: Order Comment: Speci men Type: BLOOD SPECIMEN Ordering Facility: [facility] Address: [address] [place] [address] Performed By: #### 5 7021-8 #### [facility] CLIA [id number] [address] [place] [address] [place] ALP [Catalytic activity/Vol] 77 U/L Normal 38-113 [facility] Comment on above: Order Comment: Speci men Type: BLOOD SPECIMEN Ordering Facility: [facility] Address: [address] [place], [place] [address] Performed By: #### 5 7021-8 #### [facility] CLIA [id number] [address] [place] [address] [place] ALT [Catalytic activity/Vol] 10 U/L Normal 10-54 [facility] Comment on above: Order Comment: Speci men Type: BLOOD SPECIMEN Ordering Facility: [facility] Address: [address] [place] [address] Performed By: #### 5 7021-8 #### [facility] CLIA [id number] [address] [place] [address] [place] Anion gap [Moles/Vol] 12 mmol/L Normal 8-15 [facility] Comment on above: Order Comment: Speci men Type: BLOOD SPECIMEN Ordering Facility: [facility] Address: [address] [place] [address] Performed By: #### 5 7021-8 #### [facility] CLIA [id number] [address] [place] [address] [place] AST [Catalytic activity/Vol] 12 U/L Low 14-40 [facility] Comment on above: Order Comment: Speci men Type: BLOOD SPECIMEN Ordering Facility: [facility] Address: [address] [place] [address] Performed By: #### 5 7021-8 #### [id number] [address] [place] [address] [place] Bilirubin [Mass/Vol] 0.7 mg/dL Normal 0.2-1.3 [facility] Comment on above: Order Comment: Speci men Type: BLOOD SPECIMEN Ordering Facility: [facility] Address: [address] [place] [address] Performed By: #### 5 7021-8 #### [facility] CLIA [id number] [address] [place] [address] [place] Calcium [Mass/Vol] 9.6 mg/dL Normal 8.5-10.2 [facility] Comment on above: Order Comment: Speci men Type: BLOOD SPECIMEN Ordering Facility: [facility] Address: [address] [place] [address] Performed By: #### 5 7021-8 #### [facility] CLIA [id number] [address] [place] [address] [place] Chloride [Moles/Vol] 100 mmol/L Normal 98-107 [facility] Comment on above: Order Comment: Speci men Type: BLOOD SPECIMEN Ordering Facility: [facility] Address: [address] [place] [address] Performed By: #### 5 7021-8 #### [facility] CLIA [id number] [address] [place] [address] [place] CO2 [Moles/Vol] 27 mmol/L Normal 22-30 [facility] Comment on above: Order Comment: Speci men Type: BLOOD SPECIMEN Ordering Facility: [facility] Address: [address] [place] [address] Performed By: #### 5 7021-8 #### [facility] CLIA [id number] [address] [place] [address] [place] Creatinine [Mass/Vol] 0.88 mg/dL Normal 0.73-1.22 [facility] Comment on above: Order Comment: Speci men Type: BLOOD SPECIMEN Ordering Facility: [facility] Address: [address] [place] [address] Performed By: #### 5 7021-8 #### [facility] CLIA [id number] [address] [place] [address] [place] Creatinine and Glomerular filtration rate.predicted panel (S/P/Bld) 91 mL/min/1.73m??? Normal >=60 [facility] Comment on above: Order Comment: Speci men Type: BLOOD SPECIMEN Ordering Facility: [facility] Address: [address] [place], [place] [phone] Result Comment: Aleyda mated Glomerular Filtration Rate (eGFR) is calculated using the 2020 CKD-EPI creatinine equation. This equation utilizes serum creatinine, sex, and age as parameters. The creatinine assay has traceable calibration to isotope dilution-mass spectrometry. Refer to KDIGO guidelines for clinical interpretation. In patients with unstable renal function, e.g. those with acute kidney injury, the eGFR may not accurately reflect actual GFR. Performed By: #### 5 7021-8 #### [facility] CLIA [id number] [address] [place] [address] [place] Glucose [Mass/Vol] 118 mg/dL High 74-99 [facility] Comment on above: Order Comment: Jessi chen Type: BLOOD SPECIMEN Ordering Facility: [facility] Address: [address] [place] [address] Result Comment: The [place] [employer] (ADA) provides guidance for cutoff values for fasting glucose and random glucose. The ADA defines fasting as no caloric intake for at least 8 hours. Fasting plasma glucose results between 100 to 125 mg/dL indicate increased risk for diabetes (prediabetes). Fasting plasma glucose results greater than or equal to 126 mg/dL meet the criteria for diagnosis of diabetes. In the absence of unequivocal hyperglycemia, results should be confirmed by repeat testing. In a patient with classic symptoms of hyperglycemia or hyperglycemic crisis, random plasma glucose results greater than or equal to 200 mg/dL meet the criteria for diagnosis of diabetes. Reference: Standards of Medical Care in Diabetes 2016, [place] [employer] Association. Diabetes Care. 2016.39(Suppl 1). Performed By: #### 5 7021-8 #### [facility] CLIA [id number] [address] [place] [address] [place] Potassium [Moles/Vol] 4.5 mmol/L Normal 3.7-5.1 [facility] Comment on above: Order Comment: Jessi chen Type: BLOOD SPECIMEN Ordering Facility: [facility] Address: [address] [place] [address] Performed By: #### 5 7021-8 #### [facility] CLIA [id number] [address] [place] [id number] [place] Protein [Mass/Vol] 6.5 g/dL Normal 6.3-8.0 [facility] Comment on above: Order Comment: Speci men Type: BLOOD SPECIMEN Ordering Facility: [facility] Address: [address] [place] [address] Performed By: #### 5 7021-8 #### [facility] CLIA [id number] [address] [place] [address] [place] Sodium [Moles/Vol] 139 mmol/L Normal 136-144 [facility] Comment on above: Order Comment: Speci men Type: BLOOD SPECIMEN Ordering Facility: [facility] Address: [address] [place] [address] Performed By: #### 5 7021-8 #### [facility] CLIA [id number] [address] [place] [address] [place] Urea nitrogen [Mass/Vol] 21 mg/dL Normal 9-24 [facility] Comment on above: Order Comment: Speci men Type: BLOOD SPECIMEN Ordering Facility: [facility] Address: [address] [place] [address] Performed By: #### 5 7021-8 #### [id number] [address] [place] [address] [place] HbA1c (Bld)on 04-16-2024 Average glucose Estimated from glycated hemoglobin (Bld) [Mass/Vol] 154 mg/dL Normal [facility] Comment on above: Order Comment: Speci men Type: BLOOD SPECIMEN Ordering Facility: [facility] Address: [address] [place] [address] Result Comment: eAG: (Estimated average glucose) is a calculated value from HgbA1c and is eligibility services representative of the average blood glucose level in the last 2-3 month period. Performed By: #### 5 7021-8 #### [facility] CLIA [id number] [address] [place] [address] [place] HbA1c (Bld) [Mass fraction] 7.0 % High 4.3-5.6 [facility] Center Comment on above: Order Comment: Speci men Type: BLOOD SPECIMEN Ordering Facility: [facility] Address: [address] [place] [address] Result Comment: Amer ican Diabetes Association guidelines indicate that patients with HgbA1c in the range 5.7-6.4% are at increased risk for development of diabetes, and intervention by lifestyle modification may be beneficial. HgbA1c greater or equal to 6.5% is considered diagnostic of diabetes. Performed By: #### 5 7021-8 #### [facility] CLIA [id number] [address] [place] [address] [place] LIPID PANEL, NONFASTINGon Cholesterol [Mass/Vol] 121 mg/dL Normal <200 [facility] Comment on above: Order Comment: Jessi chen Type: BLOOD SPECIMEN Ordering Facility: [facility] Address: [address] [place] [address] Result Comment: <200 mg/dL, Desirable 200-239 mg/dL, Borderline high >239 mg/dL, High Performed By: #### 5 7021-8 #### [facility] CLIA [id number] [address] [place] [address] [place] HDL CHOLESTEROL, NF 41 mg/dL Normal >39 [facility] Comment on above: Order Comment: Jessi chen Type: BLOOD SPECIMEN Ordering Facility: [facility] Address: [address] [place] [address] Result Comment: 40-5 9 mg/dL, Acceptable >59 mg/dL, High: Negative risk factor for coronary heart disease <40 mg/dL, Low: Positive risk factor for coronary heart disease Performed By: #### 5 7021-8 #### [facility] CLIA [id number] [address] [place] [address] [place] LDL CHOLESTEROL, NF 47 mg/dL Normal <100 [facility] Comment on above: Order Comment: Jessi chen Type: BLOOD SPECIMEN Ordering Facility: [facility] Address: [address] [place] [address] Result Comment: <100 mg/dL, Optimal 100-129 mg/dL, Near optimal/above optimal 130-159 mg/dL, Borderline high 160-189 mg/dL, High >189 mg/dL, Very high Secondary prevention optimal LDL Cholesterol levels are recommended to be < 70 mg/dL Performed By: #### 5 7021-8 #### [facility] CLIA [id number] [address] [place] [address] [place] LDL/HDL RATIO, NF 1.15 mg/dL Normal <2.54 [facility] Comment on above: Order Comment: Jessi chen Type: BLOOD SPECIMEN Ordering Facility: [facility] Address: [address] [place] [address] Result Comment: Mehrdad bermudez: 1. National Cholesterol Education Program ATP III Guideline At-A-Glance Quick Desk Reference: National Heart, Lung, and Blood [place]. National Institutes of Health. 2001: NIH Publication No. 01-3305. 2. An International Atherosclerosis Society position paper: global recommendations for the management of dyslipidemia: executive summary, Atherosclerosis. 2014: 232(2):410-413. Performed By: #### 5 7021-8 #### [facility] CLIA [id number] [address] [place] [address] [place] NON HDL CHOL, NF 80 mg/dL Normal <130 [facility] Comment on above: Order Comment: Jessi chen Type: BLOOD SPECIMEN Ordering Facility: [facility] Address: [address] [place] [address] Result Comment: <130 mg/dL, Optimal 130-159 mg/dL, Near optimal/above optimal 160-189 mg/dL, Borderline high 190-219 mg/dL, High >219 mg/dL, Very high Secondary prevention optimal non HDL Cholesterol levels are recommended to be <100 mg/dL Performed By: #### 5 7021-8 #### [facility] CLIA [id number] [address] [place] [address] [place] T CHOL/HDL RATIO NF 2.95 mg/dL Normal <5.10 [facility] Comment on above: Order Comment: Speci men Type: BLOOD SPECIMEN Ordering Facility: [facility] Address: [address] [place] [address] Performed By: #### 5 7021-8 #### [facility] CLIA [id number] [address] [place] [address] [place] TRIGLYCERIDES, NF 166 mg/dL High <150 [facility] Comment on above: Order Comment: Speci men Type: BLOOD SPECIMEN Ordering Facility: [facility] Address: [address] [place] [address] Result Comment: <150 mg/dL, Normal 150-199 mg/dL, Borderline high 200-499 mg/dL, High >499 mg/dL, Very high Performed By: #### 5 7021-8 #### [facility] CLIA [id number] [address] [place] [address] [place] VLDL CHOLESTEROL, NF 33 mg/dL High <30 [facility] Comment on above: Order Comment: Speci men Type: BLOOD SPECIMEN Ordering Facility: [facility] Address: [address] [place] [address] Performed By: #### 5 7021-8 #### [facility] CLIA [id number] [address] [place] [address] [place] Magnesium SerPl-mCncon 04-16 Magnesium [Mass/Vol] 1.8 mg/dL Normal 1.7-2.3 [facility] Comment on above: Order Comment: Speci men Type: BLOOD SPECIMEN Ordering Facility: [facility] Address: [address] [place] [address] Performed By: #### 5 7021-8 #### [facility] CLIA [id number] [address] [place] [address] [place] PSA SerPl-mCncon 04-16-2024 Prostate specific Ag [Mass/Vol] 0.17 ng/mL Normal <2.60 [facility] Comment on above: Order Comment: Speci men Type: BLOOD SPECIMEN Ordering Facility: [facility] Address: [address] [place] [address] Result Comment: Tota l PSA test methodology used is the Electrochemiluminescence Immunoassay by [employer]. Total PSA values by differing methodologies cannot be interchanged. Performed By: #### 5 7021-8 #### [facility] CLIA [id number] [address] [place] [address] [place] Urinalysis complete panel (U )on 04-16-2024 Bacteria LM.HPF (Urine sed) [#/Area] Negative Normal Negative [facility] Comment on above: Order Comment: Speci men Type: URINE SPECIMENOrdering Facility: [facility] Address: [address] [place] [address] Performed By: #### 2 4356-8 ####[facility] LABCLIA [id number] [place] [address] [place] Bilirubin Ql (U) Negative Normal Negative [facility] Comment on above: Order Comment: Speci men Type: URINE SPECIMENOrdering Facility: [facility] Address: [address] [place] [address] Performed By: #### 2 4356-8 ####[facility] LABCLIA [id number] [place] [address] [place] Clarity (Unsp spec) Clear Normal Clear [facility] Comment on above: Order Comment: Speci men Type: URINE SPECIMENOrdering Facility: [facility] Address: [address] [place] [address] Performed By: #### 2 4356-8 ####[facility] LABCLIA [id number] [place] [address] [place] Color (U) Yellow Normal Yellow [facility] Comment on above: Order Comment: Speci men Type: URINE SPECIMENOrdering Facility: [facility] Address: [address] [place] [address] Performed By: #### 2 4356-8 ####[facility] LABCLIA [id number] [place] [address] [place] Epithelial cells LM.HPF (Urine sed) [#/Area] None Seen Normal [facility] Comment on above: Order Comment: Speci men Type: URINE SPECIMENOrdering Facility: [facility] Address: [address] [place] [address] Performed By: #### 2 4356-8 ####[facility] LABCLIA [id number] [place] [address] [place] Glucose Test strip (U) [Mass/Vol] 3+ Abnormal Negative [facility] Comment on above: Order Comment: Speci men Type: URINE SPECIMENOrdering Facility: [facility] Address: [address] [place] [address] Performed By: #### 2 4356-8 ####[facility] LABCLIA [id number] [place] [address] [place] Hemoglobin Ql (U) Negative Normal Negative [facility] Comment on above: Order Comment: Speci men Type: URINE SPECIMENOrdering Facility: [facility] Address: [address] [place] [address] Performed By: #### 2 4356-8 ####[facility] LABCLIA [id number] [place] [address] [place] Hyaline casts (Urine sed) [#/Area] 0 /[LPF] Normal 0 /LPF [facility] Comment on above: Order Comment: Speci men Type: URINE SPECIMENOrdering Facility: [facility] Address: [address] [place] [address] Performed By: #### 2 4356-8 ####[facility] LABCLIA [id number] [place] [address] [place] Ketones Ql (U) Trace Abnormal Negative [facility] Comment on above: Order Comment: Speci men Type: URINE SPECIMENOrdering Facility: [facility] Address: [address] [place] [address] Performed By: #### 2 4356-8 ####[facility] LABCLIA [id number] [place] [address] [place] Leukocyte esterase Test strip Ql (U) Negative Normal Negative [facility] Comment on above: Order Comment: Speci men Type: URINE SPECIMENOrdering Facility: [facility] Address: [address] [place] [address] Performed By: #### 2 4356-8 ####[facility] LABCLIA [id number] [place] [address] [place] Nitrite Ql (U) Negative Normal Negative [facility] Comment on above: Order Comment: Speci men Type: URINE SPECIMENOrdering Facility: [facility] Address: [address] [place] [address] Performed By: #### 2 4356-8 ####[facility] LABCLIA [id number] [place] [address] [place] pH (U) 6.0 [pH] Normal <8.5 [facility] Comment on above: Order Comment: Speci men Type: URINE SPECIMENOrdering Facility: [facility] Address: [address] [place] [address] Performed By: #### 2 4356-8 ####[facility] LABCLIA [id number] [place] [address] [place] Protein (U) [Mass/Vol] Trace Abnormal Negative [facility] Comment on above: Order Comment: Speci men Type: URINE SPECIMENOrdering Facility: [facility] Address: [address] [place] [address] Performed By: #### 2 4356-8 ####[facility] LABCLIA [id number] [place] [address] [place] RBC LM.HPF (Urine sed) [#/Area] 0-2 /HPF Normal 0-2 /HPF [facility] Comment on above: Order Comment: Speci men Type: URINE SPECIMENOrdering Facility: [facility] Address: [address] [place] [address] Performed By: #### 2 4356-8 ####[facility] [id number] [place] [address] [place] Specific gravity (U) [Rel density] 1.032 High 1.005-1.030 [facility] Comment on above: Order Comment: Speci men Type: URINE SPECIMENOrdering Facility: [facility] Address: [address] [place] [address] Performed By: #### 2 4356-8 ####[facility] [id number] [place] [address] [place] Urobilinogen Ql (U) 0.2 EU/dL Normal 0.2-1.0 EU/dL [facility] Comment on above: Order Comment: Speci men Type: URINE SPECIMENOrdering Facility: [facility] Address: [address] [place] [address] Performed By: #### 2 4356-8 ####[facility] [id number] [place] [address] [place] WBC LM.HPF (Urine sed) [#/Area] 0-5 /HPF Normal 0-5 /HPF [facility] Comment on above: Order Comment: Speci men Type: URINE SPECIMENOrdering Facility: [facility] Address: [address] [place] [address] Performed By: #### 2 4356-8 ####[facility] [id number] [place] [address] [place] Vit B12 SerPl-ncon 07-30-2 024 Cobalamin (Vitamin B12) [Mass/Vol] 465 pg/mL Normal 232-1245 [facility] Comment on above: Order Comment: Speci men Type: BLOOD SPECIMEN Ordering Facility: [facility] Address: [address], [place] [address] Performed By: #### 5 7021-8 #### [facility] [place] [id number] [address] [place] [address] [place] Re-Evaluation - PT (1)on Re-Evaluation - PT (1) [facility] [address] [place] [address] / REEVALUATION / MEDICARE RECERTIFICATION PHYSICAL THERAPY MR#: [id number] Acct: [id number] Name: RONNIE YARBROUGH Rep #: [id number] : 1950 73 From: Chuck Veliz DPT Referring Dr.: LEO Rivera Status:REG RC R Insurance: [employer] [facility] SELF PAY INSURANCE Re-Evaluation Intro: LEO Warner, It has been my pleasure to treat RONNIE YARBROUGH over the last 8 visits for L2-S1 fusion (DOS aug 2023). Please see the progress note below for an update on the physical therapy plan of care! Subjective Subjective: Pt. reports having 8/10 pain in lumbar spine, Right in the center. Pt. reports pain stays around this pain. He is going next week for an injection as well. Objective Objective/Function: MMT: RLE: ankle: DF 24#, PF48.5#; knee: ext 36.4#, flexion 29.1#; hip: flexion 25.7#, abd 34.3#. LLE: ankle: DF 35.6#, PF 48.5#; knee: ext 39.3#, flexion 28.7#; hip: flexion 33.9#, abd 27.9# Core strength poor+. GAIT: Pt. ambulates well with SPC, normal use no issues. Without AD, he is still I, but has some increased postural sway. No LOB noted. SGA: 20/30 Pt. has much improved strength in RLE especially. I would like at this point in time to focus on balance and stability exercises in CK. Work on safety and dynamic movements in order to reduce risk for future falls. Pt. does a decent amount of outside work and I would like to have increased stability in order to reduce future risks for falls. Plan Plan Plan: Focus on dynamic balance including on foam and with eyes closed. Work on stability with tidal tank as well. Balance/Gait/Functional tests Balance/Special Test Scores Functional Gait Assessment Score: 20 % Disability: 33.3400 Oswestry Low Back Score: 15 TUG Test Time Seconds: 12.8 Tug Test: <20 sec.=mostly independent Goals Goals Goal 1:: LTG: Pt. to be I with HEP for home and gym exercises. Goal Time Frame: 6-8 Weeks Goal Progress: Goal Met Goal 2:: STG: Pt. to be I with home program to take on his trip for core stability. Goal Time Frame: 1 Week Goal 3:: LTG: Pt. to have an increased in BLE strength by 10# throughout. Goal Time Frame: 6-8 Weeks Goal Progress: Progressing Goal 4:: LTG: Pt. to be able to have normal and safe gait pattern without use of AD. Goal Time Frame: 6-8 Weeks Goal Progress: Progressing Goal 5:: LTG: Pt. to have improved FGA to 23/30 indicated increased stability in stance. Goal Time Frame: 6-8 Weeks Goal Progress: Progressing Anticipated Interventions Anticipated Interventions Patient/Client Instruction: Educate patient on: Condition, Plan of Care, Risk Factors and Benefits of Fitness Program For the Purpose of:: To improve decision making, To facilitate caregiver knowledge, To improve self management, To prevent re-injury, To improve ability to perform tasks related to life management and To improve tolerance to ADL's Therapeutic Exercise to Include: Strength training, Power training, Endurance training, Balance training, Postural training, Flexibilty training and Gait and locomotor training For the Purpose of:: To decrease pain, To increase ROM, To improve nutrient delivery to tissue, To increase oxygenation perfusion, To improve muscle performance and motor function, To improve ability to perform ADL's, To increase tolerance to activity/condition/position and To improve performance and independence with ADL's Re-Evaluation Ending Re-evaluation ending: Please do not hesitate to contact me at [phone] by phone or if you have questions or concerns regarding this new plan of care! Sincerely, Chuck Veliz DPT 03/28/2429 CC: LEO Rivera; Dr. Ovidio Vincent MD CLS Signed For Medicare only, by signing this I certify the plan of care. Physicians Signature Date Normal [facility] EYE EXAM ESTABLISHED PTon GENE result received by fax from Dr. Juve Reza. Exam date 03/26/24. Result scanned and Health Maintenance updated. [facility] CNCOon 03-14-2024 CNCO Letter Text Normal [facility] 12 Lead EKG performed by [facility] on 03-06-2024 12 Lead EKG performed by [address] [place] [address] 12 Lead EKG performed by [facility] 03/06/24926 MR#: [id number] Acct: [id number] Name: RONNIE YARBROUGH Rep #: [id number] : 1950 73 From: Patsy Gamble MD Attending Dr: Dr. Patsy Gamble MD Status: DEP AMB Ordering Dr: Patsy Gamble MD Date: 03/06/24 Location: [facility] Sex: M C Admitted: [facility]12 Lead EKG performed by [facility] ECG Report Interpretation Si nus Rhythm WITHIN NORMAL LIMITSElectronically signed on 10/14/2024 at 10:[address] Patsy Gamble [employer] Version 8610 10/14/24 1014 Date Patsy Gamble MD CC: Dr. Ovidio Vincent MD Date Dictated: 03/06/24926 Date Transcribed: 03/06/24926 Electronics Engineering Manager: JELANI Signed Normal [facility] Cardiology Visit Reporton Cardiology Visit Report [facility] [address] [place], [place] [address] OFFICE VISIT Date of Service: 03/06/24 MR#: [id number] Acct: [id number] Name: RONNIE YARBROUGH Rep #: [id number] : 1950 Provider: Dr. Patsy Gamble MD Age/Sex: 73/M Location: [facility] Status: Signed HPI HPI History of Present Illness Details: This gentleman with history of DVT, rheumatoid arthritis and hypertension is here for follow-up visit. Denies any complaints. No palpitations. No orthopnea. No PND. Chronic lower extremity edema. 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 Accompanied by: Self Is patient in pain?: No Allergies No Known Allergies Allergy (Unverified 03/06/24 09:04) Medications ???Medication ???Instructions ???Recorded ???Confirmed ???Type aspirin 81 mg tablet,delayed 81 mg PO DAILY Heart 01/05/23 03/06/24 History release calcium carb-ergocalciferol (vit 200 tab PO DAILY Supplment 01/05/23 03/06/24 History D2) 600 mg calcium-200 unit tablet cholecalciferol (vitamin D3) 50 50 mcg PO DAILY Supplement 01/05/23 03/06/24 History mcg (2,000 unit) tablet cyanocobalamin (vitamin B-12) 1,000 mcg PO DAILY Supplement 01/05/23 03/06/24 History 1,000 mcg capsule losartan 25 mg tablet 25 mg PO DAILY BP 01/05/23 03/06/24 History metformin 1,000 mg tablet 1,000 mg PO BID DM 01/05/23 03/06/24 History multivitamin 1 tab PO DAILY Supplement 01/05/23 03/06/24 History omeprazole 40 mg capsule,delayed 40 mg PO DAILY GERD 01/05/23 03/06/24 History release dulaglutide 1.5 mg/0.5 mL 1.5 mg subcut QWEEK DM 05/01/23 03/06/24 History subcutaneous pen injector (Trulicity) magnesium chloride 71.5 mg 143 mg PO BID 05/01/23 03/06/24 History (magnesium chloride) tablet,delayed release (Slow-Mag) dapagliflozin propanediol 10 mg 10 mg PO DAILY 05/02/23 03/06/24 History tablet (Farxiga) fluticasone fur. 100 mcg-umeclid 1 inh inhalation DAILY 05/02/23 03/06/24 History 62.5 mcg-vilant 25 mcg inhalat.powder (Trelegy Ellipta) leflunomide 10 mg tablet 10 mg PO DAILY Arthritis 05/02/23 03/06/24 History torsemide 20 mg tablet 20 mg PO DAILY 08/17/23 03/06/24 History atorvastatin 40 mg tablet 40 mg PO QDAY 03/06/24 03/06/24 History carvedilol 25 mg tablet 25 mg PO BID #180 tabs 03/06/24 03/06/24 Rx terbinafine HCl 250 mg tablet 250 mg PO DAILY Antifungal 03/06/24 03/06/24 History Ejection fraction %: 70 PFSH Medical History (Updated 03/06/24 @ 09:[address] Patsy Gamble MD) DVT of lower extremity, bilateral Abnormal ECG Paroxysmal atrial fibrillation Essential hypertension History of multiple myeloma GERD (gastroesophageal reflux disease) Rheumatoid arthritis Osteoarthritis Diabetes mellitus COPD (chronic obstructive pulmonary disease) Hyperlipidemia Debility Thoracic spinal stenosis Bone tumor Surgical History (Updated 03/06/24 @ 09:10 by Maria Isabel Eubanks) Hx of bilateral cataract extraction Hx of eye surgery History of total left knee replacement (TKR) ( 08/2023) History of tonsillectomy History of laminectomy History of carpal tunnel surgery of right wrist History of esophagogastroduodenoscopy History of colonoscopy History of bone marrow transplant History of total right knee replacement (TKR) History of reverse total replacement of right shoulder joint History of lumbar fusion Hx of fusion of cervical spine Family History Father Cancer, Onset Age: 52 Pancreatic cancer. Diabetes Sister Diabetes Grandmother Diabetes Social History household members: spouse Smoking Status: Former smoker quit date: 09/18/12 alcohol intake: current alcohol intake frequency: a few times a month substance use type: does not use caffeine: Yes Type: coffee Number of servings: 3 ROS Const Const: Positive for fatigue and daytime sleepiness (sometimes); Negative for weakness, headache(s), frequent falls, difficulty sleeping or excessive sweating Eyes Eyes: Negative for loss of peripheral vision, transient loss of vision, blurry vision, double vision or tunnel vision ENT ENT: Positive for balance problems; Negative for headache(s), dizziness or Nosebleed/epistaxis Cardio Chest Pain: No Palpitations: No Edema: Bilateral Muscle aches with walking: None Resp Respiratory: Negative for SOB with activity, SOB at rest, SOB orthopnea SOB lying down, Cough or paroxysmal nocturnal dyspnea (more content not included)... Normal [facility] HEMOGLOBIN A1C (EXTERNAL)on 08-04-2023 HbA1c (Bld) [Mass fraction] 7.1 % Abnormal 0 - 5.7 % [facility] CBC W Auto Differential pane l (Bld)on 08-01-2023 Basophils (Bld) [#/Vol] <0.11 k/uL [facility] Basophils/100 WBC (Bld) 0.0 % [facility] Differential cell count method Nom (Bld) Auto [facility] Eosinophils (Bld) [#/Vol] 0.03 10*3/uL <0.46 k/uL [facility] Eosinophils/100 WBC (Bld) 0.4 % [facility] Erythrocyte distribution width (RBC) [Ratio] 16.3 % High 11.5 - 15.0 % [facility] Hematocrit (Bld) [Volume fraction] 48.9 % 39.0 - 51.0 % [facility] Hemoglobin (Bld) [Mass/Vol] 15.3 g/dL 13.0 - 17.0 g/dL [facility] Immature granulocytes (Bld) [#/Vol] 0.04 10*3/uL <0.10 k/uL [facility] Immature granulocytes/100 WBC (Bld) 0.6 % [facility] Lymphocytes (Bld) [#/Vol] 1.03 10*3/uL 1.00 - 4.00 k/uL [facility] Lymphocytes/100 WBC (Bld) 14.8 % [facility] MCH (RBC) [Entitic mass] 26.6 pg 26.0 - 34.0 pg [facility] MCHC (RBC) [Mass/Vol] 31.3 g/dL 30.5 - 36.0 g/dL [facility] MCV (RBC) [Entitic vol] 85.0 fL 80.0 - 100.0 fL [facility] Monocytes (Bld) [#/Vol] 0.42 10*3/uL <0.87 k/uL [facility] Monocytes/100 WBC (Bld) 6.0 % [facility] Neutrophils (Bld) [#/Vol] 5.43 10*3/uL 1.45 - 7.50 k/uL [facility] Neutrophils/100 WBC (Bld) 78.2 % [facility] Nucleated RBC (Bld) [#/Vol] <0.01 k/uL [facility] Nucleated RBC/100 WBC (Bld) [Ratio] 0.0 /100 WBC [facility] Platelet mean volume (Bld) [Entitic vol] 10.4 fL 9.0 - 12.7 fL [facility] Platelets (Bld) [#/Vol] 198 10*3/uL 150 - 400 k/uL [facility] RBC (Bld) [#/Vol] 5.75 10*6/uL 4.20 - 6.0 0 m/uL [facility] WBC (Bld) [#/Vol] 6.95 10*3/uL 3.70 - 11. 00 k/uL [facility] No Panel InformationOrdered By: Patsy Gamble on 05-02-2023 Thyroid Stimulating Hormone (TSH) 3.03 uIU/mL 0.358-3.74 [facility] HbA1c (Bld)on 03-30-2023 Average glucose Estimated from glycated hemoglobin (Bld) [Mass/Vol] 171 mg/dL [facility] HbA1c (Bld) [Mass fraction] 7.6 % High 4.3 - 5.6 % [facility] Basic metabolic 2000 panelon 02-17-2023 Anion gap [Moles/Vol] 14 mmol/L 9 - 18 mmol/L [facility] Calcium [Mass/Vol] 9.4 mg/dL 8.5 - 10. 2 mg/dL [facility] Chloride [Moles/Vol] 99 mmol/L 97 - 10 5 mmol/L [facility] CO2 [Moles/Vol] 27 mmol/L 22 - 30 mmol/L [facility] Creatinine [Mass/Vol] 1.03 mg/dL 0.73 - 1.22 mg/dL [facility] Estimated Glomerular Filtration Rate 78 mL/min/1.73m >=60 mL/min/1.73m [facility] Glucose [Mass/Vol] 140 mg/dL High 74 - 99 mg/dL [facility] Potassium [Moles/Vol] 4.5 mmol/L 3.7 - 5.1 mmol/L [facility] Sodium [Moles/Vol] 140 mmol/L 136 - 144 mmol/L [facility] Urea nitrogen [Mass/Vol] 26 mg/dL High 9 - 24 mg/dL [facility] NT PRO BNPon 02-17-2023 Natriuretic peptide.B prohormone N-Terminal [Mass/Vol] 149 pg/mL High <125 pg/mL [facility] US LEG VEIN DVT ALESSANDRA VAS LABo n 02-17-2023 [facility] Absolute lymphocyte countOrd ered By: Dr. Coburn on 02-10-2023 Lymphocytes Auto (Unsp spec) [#/Vol] 0.64 10*3/uL 0.83-4.51 [facility] Basophil percentageOrdered B y: Dr. Coburn on 02-10-2023 Basophils/100 WBC (Bld) 0.3 % 0-1 [facility] Chloride [Moles/Vol] 106 mmol/L 98-107 [facility] Eosinophils/100 WBC (Bld) 0.8 % 0-5 [facility] Glucose [Mass/Vol] 148 mg/dL 74-106 [facility] Comment on above: Fasting Glucose resu lt greater than or equal to 126 mg/dL suggests DIABETES MELLITUS per A.D.A. criteria. Neutrophils (Bld) [#/Vol] 3.0 10*3/uL 2.0-7.7 [facility] Neutrophils/100 WBC (Bld) 73.8 % 47-70 [facility] Potassium [Moles/Vol] 4.4 mmol/L 3.5-5.1 [facility] Sodium [Moles/Vol] 141 mmol/L 136-145 [facility] WBC (Bld) [#/Vol] 4.0 10*3/uL 4.4-11.0 [facility] Blood erythrocytes count (nu mber/volume)Ordered By: Dr. Coburn on 02-10-2023 RBC (Bld) [#/Vol] 4.97 10*6/uL 4.6-6.2 [facility] Blood hemoglobin measurement (mass/volume)Ordered By: Dr. Coburn on 02-10-2023 Hemoglobin (Bld) [Mass/Vol] 13.9 g/dL 13.0-16.5 [facility] Blood lymphocytes/100 leukoc ytesOrdered By: Dr. Coburn on 02-10-2023 Lymphocytes/100 WBC (Bld) 16.0 % 19-41 [facility] Blood monocytes/100 leukocyt esOrdered By: Dr. Coburn on 02-10-2023 Monocytes/100 WBC (Bld) 8.3 % 0-10 [facility] Blood platelet mean volumeOr dered By: Dr. Coburn on 02-10-2023 Platelet mean volume (Bld) [Entitic vol] 9.9 fL 6.2-12.0 [facility] Determination of erythrocyte mean corpuscular volume (MCV)Ordered By: Dr. Coburn on 02-10-2023 MCV (RBC) [Entitic vol] 88.5 fL 80-94 [facility] Hematocrit Auto (Bld) [Volum e fraction]Ordered By: Dr. Coburn on 02-10-2023 Hematocrit (Bld) [Volume fraction] 44.0 % 40-54 [facility] Laboratory - Chemistry and C hemistry - challengeOrdered By: Dr. Coburn on 02-10-2023 CO2 [Moles/Vol] 28.0 mmol/L 21.0-32.0 [facility] Magnesium [Mass/Vol] 1.5 mg/dL 1.6-2.6 [facility] Natriuretic peptide B (Bld) [Mass/Vol] 106.1 pg/mL 0-100 [facility] Urea nitrogen/Creatinine [Mass ratio] 24.5 mg/mg 10-20 [facility] Laboratory - Hematology and Cell countsOrdered By: Dr. Coburn on 02-10-2023 Erythrocyte distribution width (RBC) [Entitic vol] 52.9 fL 35.1-43.9 [facility] Erythrocyte distribution width (RBC) [Ratio] 16.4 % 11.6-14.6 [facility] Immature granulocytes/100 WBC (Bld) 0.800 % 0.0-0.9 [facility] Comment on above: IG% - Immature Granu locytes (promyelocytes, myelocytes and metamyelocytes) > 1% indicates that a LEFT SHIFT is Present. MCH (RBC) [Entitic mass] 28.0 pg 27.0-32.0 [facility] Nucleated RBC/100 WBC (Bld) [Ratio] 0 % 0-5 [facility] MCHC Auto (RBC) [Mass/Vol]Or dered By: Dr. Coburn on 02-10-2023 MCHC (RBC) [Mass/Vol] 31.6 g/dL 32-36 [facility] No Panel InformationOrdered By: Dr. Coburn on 02-10-2023 Troponin I High Sensitivity 22 pg/mL 3.0-78.0 [facility] Comment on above: Please Note: New Td t Units and Gender Specific Reference Ranges. For more information see Policy Stat Procedure [place] High Sensitivity Troponin (TNIH) and attachments. Estimated Creatinine Clearance Calc 63.92 ml/min [facility] Estimated GFR (MDRD) Amer 88 mL/min >60 [facility] Comment on above: GFR Calc Estimated GFR (MDRD) Non-Af Amer 73 mL/min >60 [facility] Comment on above: Non- GFR Calc Platelets bldOrdered By: Dr. Coburn on 02-10-2023 Platelets (Bld) [#/Vol] 184 10*3/uL 150-450 [facility] Serum or plasma calcium ernst urement (mass/volume)Ordered By: Dr. Coburn on 02-10-2023 Calcium [Mass/Vol] 8.9 mg/dL 8.5-10.1 [facility] Serum or plasma creatinine m easurement (mass/volume)Ordered By: Dr. Coburn on 02-10-2023 Creatinine [Mass/Vol] 1.06 mg/dL 0.70-1.30 [facility] Comment on above: The validity of the calculated GFR & GFRAA in patients over 70 years has not been determined. Clinical correlation is essential. Serum or plasma urea nitroge n measurement (mass/volume)Ordered By: Dr. Coburn on 02-10-2023 Urea nitrogen [Mass/Vol] 26 mg/dL 7-18 [facility] Thin prep Papanicolaou smear with manual screeningOrdered By: Dr. Coburn on 02-10-2023 Thin prep Papanicolaou smear with manual screening 7 5-15 [facility] Glucose Glucometer (BldC) [M ass/Vol]Ordered By: Dr. Davila on 01-14-2023 Glucose [Mass/Vol] 136 mg/dL 74-106 [facility] Comment on above: MANAGEMENT OF PATIEN T CARE PER NURSING PROTOCOL Absolute lymphocyte countOrd ered By: Dr. Davila on 01-13-2023 Lymphocytes Auto (Unsp spec) [#/Vol] 0.75 10*3/uL 0.83-4.51 [facility] Basophil percentageOrdered B y: Dr. Davila on 01-13-2023 Basophils/100 WBC (Bld) 0.5 % 0-1 [facility] Chloride [Moles/Vol] 106 mmol/L 98-107 [facility] Eosinophils/100 WBC (Bld) 0.7 % 0-5 [facility] Glucose [Mass/Vol] 122 mg/dL 74-106 [facility] Comment on above: Fasting Glucose resu lt from 100 to 125 mg/dL suggests IMPAIRED HOMEOSTASIS per A.D.A. criteria. Neutrophils (Bld) [#/Vol] 3.0 10*3/uL 2.0-7.7 [facility] Neutrophils/100 WBC (Bld) 70.8 % 47-70 [facility] Potassium [Moles/Vol] 4.8 mmol/L 3.5-5.1 [facility] Sodium [Moles/Vol] 137 mmol/L 136-145 [facility] WBC (Bld) [#/Vol] 4.3 10*3/uL 4.4-11.0 [facility] Blood erythrocytes count (nu mber/volume)Ordered By: Dr. Davila on 01-13-2023 RBC (Bld) [#/Vol] 4.91 10*6/uL 4.6-6.2 [facility] Blood hemoglobin measurement (mass/volume)Ordered By: Dr. Davila on 01-13-2023 Hemoglobin (Bld) [Mass/Vol] 13.9 g/dL 13.0-16.5 [facility] Blood lymphocytes/100 leukoc ytesOrdered By: Dr. Davila on 01-13-2023 Lymphocytes/100 WBC (Bld) 17.5 % 19-41 [facility] Blood monocytes/100 leukocyt esOrdered By: Dr. Davila on 01-13-2023 Monocytes/100 WBC (Bld) 8.9 % 0-10 [facility] Blood platelet mean volumeOr dered By: Dr. Davila on 01-13-2023 Platelet mean volume (Bld) [Entitic vol] 9.7 fL 6.2-12.0 [facility] Determination of erythrocyte mean corpuscular volume (MCV)Ordered By: Dr. Davila on 01-13-2023 MCV (RBC) [Entitic vol] 88.2 fL 80-94 [facility] Hematocrit Auto (Bld) [Volum e fraction]Ordered By: Dr. Davila on 01-13-2023 Hematocrit (Bld) [Volume fraction] 43.3 % 40-54 [facility] Laboratory - Chemistry and C hemistry - challengeOrdered By: Dr. Davila on 01-13-2023 CO2 [Moles/Vol] 26.0 mmol/L 21.0-32.0 [facility] Urea nitrogen/Creatinine [Mass ratio] 19.3 mg/mg 10-20 [facility] - Hematology and Cell countsOrdered By: Dr. Davila on 01-13-2023 Erythrocyte distribution width (RBC) [Entitic vol] 56.4 fL 35.1-43.9 [facility] Erythrocyte distribution width (RBC) [Ratio] 17.6 % 11.6-14.6 [facility] Immature granulocytes/100 WBC (Bld) 1.600 % 0.0-0.9 [facility] Comment on above: IG% - Immature Granu locytes (promyelocytes, myelocytes and metamyelocytes) > 1% indicates that a LEFT SHIFT is Present. MCH (RBC) [Entitic mass] 28.3 pg 27.0-32.0 [facility] Nucleated RBC/100 WBC (Bld) [Ratio] 0 % 0-5 [facility] Auto (RBC) [Mass/Vol]Or dered By: Dr. Davila on 01-13-2023 MCHC (RBC) [Mass/Vol] 32.1 g/dL 32-36 [facility] No Panel InformationOrdered By: Dr. Davila on 01-13-2023 Estimated Creatinine Clearance Calc 69.14 ml/min [facility] Estimated GFR (MDRD) Amer 96 mL/min >60 [facility] Comment on above: GFR Calc Estimated GFR (MDRD) Non-Af Amer 80 mL/min >60 [facility] Comment on above: Non- GFR Calc Platelets bldOrdered By: Dr. Davila on 01-13-2023 Platelets (Bld) [#/Vol] 141 10*3/uL 150-450 [facility] Serum or plasma calcium ernst urement (mass/volume)Ordered By: Dr. Davila on 01-13-2023 Calcium [Mass/Vol] 8.9 mg/dL 8.5-10.1 [facility] Serum or plasma creatinine m easurement (mass/volume)Ordered By: Dr. Davila on 01-13-2023 Creatinine [Mass/Vol] 0.98 mg/dL 0.70-1.30 [facility] Comment on above: The validity of the calculated GFR & GFRAA in patients over 70 years has not been determined. Clinical correlation is essential. Serum or plasma urea nitroge n measurement (mass/volume)Ordered By: Dr. Davila on 01-13-2023 Urea nitrogen [Mass/Vol] 19 mg/dL 7-18 [facility] Thin prep Papanicolaou smear with manual screeningOrdered By: Dr. Davila on 01-13-2023 Thin prep Papanicolaou smear with manual screening 5 5-15 [facility] COVID-19 virus antigen assay Ordered By: Shabbir Davila on 01-09-2023 SARS-CoV-2 (COVID-19) Ag IA.rapid Ql (Resp) [facility] COVID-19 virus antigen assay Ordered By: Dr. Davila on 01-09-2023 SARS-CoV-2 (COVID-19) Ag IA.rapid Ql (Resp) [facility] No Panel Informationon 12-19 [facility] VITAMIN D 25 HYDROXYon 12-19 25-hydroxyvitamin D3 [Mass/Vol] 39.0 ng/mL 31.0 - 80.0 ng/mL [facility] XR BONE SURVEY ROUTINEon XR BONE SURVEY ROUTINE * * *Final Report* * * DATE OF EXAM: Oct 27 2022 8:45AM MDX 5304 - XR BONE SURVEY ROUTINE / PROCEDURE REASON: multiple diagnoses * * * * Physician Interpretation * * * * EXAMINATION: XR BONE SURVEY ROUTINE PATIENT/TECHNOLOGIST PROVIDED HISTORY: bone survey CLINICAL INFORMATION: 72 years old Male with Multiple myeloma in remission. H/O autologous stem cell transplant. TECHNIQUE: lateral skull, lateral cervical spine, frontal and lateral thoracic and lumbar spine, one view each upper extremity, bilateral ribs, frontal pelvis, frontal lower extremities VIEWS: 22 COMPARISON: 10/05/2021, 04/19/2021, 10/07/2020, outside hospital chest CT 08/30/2022 Lateral view of the skull demonstrates focal several well-defined lucencies consistent with myeloma. These have not changed in size or number since the prior exam. Cervical spine: C4-C5 anterior discectomy and interbody fusion with solid bony fusion. Mild retrolisthesis C3 on C4 and C5 on C6 with severe disc space narrowing C3-C4 and C5-C6. Facet degenerative changes. No evidence of neoplasia. C7 is obscured by the patient's shoulders. Thoracolumbar spine: Chronic moderate T6 compression deformity and mild L1 compression deformity. Upper thoracic vertebral bodies are not well assessed on this exam due to overlapping soft tissues no prior CT demonstrated mild vertebral body height loss of multiple upper thoracic vertebral bodies. Moderate T12 compression deformity new compared to radiographs 10/05/2021 but unchanged compared to outside hospital chest CT 08/30/2022. Diffuse osteopenia. Multiple lytic lesions better evaluated by prior CTs. L2-S1 decompression and posterior instrumented fusion grossly unchanged. Levoscoliosis of the lumbar spine and rightward lateral listhesis of L1 on L2. Upper extremities: Lytic lesion with pathologic fracture healed fracture LEFT medial clavicle, unchanged. Lytic lesion LEFT distal clavicle, LEFT proximal humerus, LEFT distal humerus, base of the LEFT 1st metacarpal and RIGHT mid-distal humerus, unchanged. RIGHT total shoulder arthroplasty. Severe LEFT glenohumeral joint space narrowing with [id number] contact. Bilateral widening of the scapholunate interval with radiocarpal joint space narrowing more severe on the LEFT suggestive of scapholunate advanced collapse. There is bony remodeling of the lunate. Moderate-marked degenerative changes LEFT thumb base with subchondral cystic change in the distal scaphoid. Ribs: Multiple pathologic healed fractures better evaluated by CT almost involving all the ribs bilaterally. AP pelvis: Subcentimeter lytic lesions in the pelvis are grossly unchanged. Lower extremities: Subcentimeter lytic lesions in the femurs are grossly unchanged. RIGHT total knee arthroplasty. Severe osteoarthritis LEFT knee. Diffuse subcutaneous edema bilateral lower legs. IMPRESSION: Multiple lytic lesions compatible with history of multiple myeloma. Moderate T12 compression fracture new compared to radiographs 10/05/2021 but unchanged compared to outside hospital CT 08/30/2022. Note that radiographs are insensitive in detecting subtle changes given extensive disease burden and CT can be obtained for further evaluation by clinical discretion. Electronics Engineering Manager: ROBERTA Transcribe Date/Time: Nov 02 2022 8:37A Dictated by : RIMA HUGHES DO This examination was interpreted and the report reviewed and electronically signed by: RIMA HUGHES DO on Nov 02 2022 9:18AM EST [id number] [facility] XR Lumbar spine AP and Later al and obliqueon 10-05-2022 IMPRESSION: Postsurg ical and degenerative changes, as described. 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 Electronics Engineering Manager: ROBERTA Transcribe Date/Time: Oct 05 2022 8:31A Dictated by : GATITO AGUILAR MD This examination was interpreted and the report reviewed and electronically signed by: GATITO AGUILAR MD on Oct 05 2022 8:36AM EST DIVISION OF RADIOLOGY * * *Final Report* * * DATE OF EXAM: Oct 03 2022 8:19AM WOX 5233 - XR LUMBAR PARS 4V AP/LAT/OBL X2 / PROCEDURE REASON: Spinal stenosis, lumbar region, without neurogenic claudication * * * * Physician Interpretation * * * * History: Spinal stenosis in the lumbar region FINDINGS: AP, lateral, bilateral oblique views of the lumbar spine have been obtained. For the purposes of this report the iliac crest is considered the L5 level. AP view demonstrates rotolevoscoliosis of the lumbar spine and slight dextroscoliosis of the thoracolumbar junction. Patient has had prior laminectomy at L3/4, L4/5, and L5/S1 levels. Postoperative changes are seen with pedicle screws and stabilization rods extending from L2 through S1 with multilevel intervertebral spacers, hardware intact.. There is mild anterolisthesis of L5 on S1 of 2-3 mm. Visualized. There is retrolisthesis of L4 with respect to L5 and of L3 with respect to L4, 3-5 mm. There is slight anterolisthesis of L5 with respect to S1-1-2-3 mm. There is compression of the superior endplate of T12, age indeterminate, and narrowing of L1/L2 with associated marginal spurring. DIVISION OF RADIOLOGY Provider, [facility] - 10/05/2022 * * *Final Report* * * DATE OF EXAM: Oct 03 2022 8:19AM WOX 5233 - XR LUMBAR PARS 4V AP/LAT/OBL X2 / PROCEDURE REASON: Spinal stenosis, lumbar region, without neurogenic claudication * * * * Physician Interpretation * * * * History: Spinal stenosis in the lumbar region FINDINGS: AP, lateral, bilateral oblique views of the lumbar spine have been obtained. For the purposes of this report the iliac crest is considered the L5 level. AP view demonstrates rotolevoscoliosis of the lumbar spine and slight dextroscoliosis of the thoracolumbar junction. Patient has had prior laminectomy at L3/4, L4/5, and L5/S1 levels. Postoperative changes are seen with pedicle screws and stabilization rods extending from L2 through S1 with multilevel intervertebral spacers, hardware intact.. There is mild anterolisthesis of L5 on S1 of 2-3 mm. Visualized. There is retrolisthesis of L4 with respect to L5 and of L3 with respect to L4, 3-5 mm. There is slight anterolisthesis of L5 with respect to S1-1-2-3 mm. There is compression of the superior endplate of T12, age indeterminate, and narrowing of L1/L2 with associated marginal spurring. IMPRESSION IMPRESSION: Postsurgical and degenerative changes, as described. 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 Electronics Engineering Manager: ROBERTA Transcribe Date/Time: Oct 05 2022 8:31A Dictated by : GATITO AGUILAR MD This examination was interpreted and the report reviewed and electronically signed by: GATITO AGUILAR MD on Oct 05 2022 8:36AM EST [facility] XR Lumbar spine AP and Later al and obliqueOrdered By: [facility] Provider on 10-05-2022 [facility] XR Lumbar spine AP and Later al and obliqueon 10-03-2022 Radiology Study observation (narrative) [facility] Absolute lymphocyte counton 12-28-2021 Lymphocytes Auto (Unsp spec) [#/Vol] 0.43 10*3/uL 0.83-4.51 [facility] Work Phone: Basophil percentageon 2021 Basophils/100 WBC (Bld) 0.2 % 0-1 [facility] Work Phone: [phone] Bilirubin [Mass/Vol] 0.50 mg/dL 0.20-1.00 [facility] Work Phone: [phone] Comment on above: For patients on eltr ombopag therapy, use of Dimension [place] TBIL is not recommended. Chloride [Moles/Vol] 101 mmol/L 98-107 [facility] Work Phone: Eosinophils/100 WBC (Bld) 0.4 % 0-5 [facility] Work Phone: [phone] Glucose [Mass/Vol] 146 mg/dL 74-106 [facility] Work Phone: [phone] Comment on above: Fasting Glucose resu lt greater than or equal to 126 mg/dL suggests DIABETES MELLITUS per A.D.A. criteria. Neutrophils (Bld) [#/Vol] 4.5 10*3/uL 2.0-7.7 [facility] Work Phone: Neutrophils/100 WBC (Bld) 83.1 % 47-70 [facility] Work Phone: [phone] Potassium [Moles/Vol] 3.8 mmol/L 3.5-5.1 [facility] Work Phone: [phone] Protein [Mass/Vol] 6.5 g/dL 6.4-8.2 [facility] Work Phone: [phone] Sodium [Moles/Vol] 137 mmol/L 136-145 [facility] Work Phone: WBC (Bld) [#/Vol] 5.4 10*3/uL 4.4-11.0 [facility] Work Phone: Blood erythrocytes count (nu mber/volume)on 12-28-2021 RBC (Bld) [#/Vol] 4.86 10*6/uL 4.6-6.2 [facility] Work Phone: Blood hemoglobin measurement (mass/volume)on 12-28-2021 Hemoglobin (Bld) [Mass/Vol] 14.3 g/dL 13.0-16.5 [facility] Work Phone: Blood lymphocytes/100 leukoc yteson 12-28-2021 Lymphocytes/100 WBC (Bld) 8.0 % 19-41 [facility] Work Phone: Blood manual differential co mment interpretation (narrative result)on 12-28-2021 Manual differential comment Abel (Bld) [Interp] SCANNED [facility] Work Phone: Comment on above: LYMPHOPENIA NOTED Blood monocytes/100 leukocyt eson 12-28-2021 Monocytes/100 WBC (Bld) 7.6 % 0-10 [facility] Work Phone: Blood platelet mean volumeon 12-28-2021 Platelet mean volume (Bld) [Entitic vol] 9.9 fL 6.2-12.0 [facility] Work Phone: Determination of erythrocyte mean corpuscular volume (MCV)on 12-28-2021 MCV (RBC) [Entitic vol] 93.2 fL 80-94 [facility] Work Phone: Hematocrit Auto (Bld) [Volum e fraction]on 12-28-2021 Hematocrit (Bld) [Volume fraction] 45.3 % 40-54 [facility] Work Phone: Laboratory - Chemistry and C hemistry - challengeon 12-28-2021 ALP [Catalytic activity/Vol] 71 U/L 45-117 [facility] Work Phone: ALT [Catalytic activity/Vol] 20 U/L 16-61 [facility] Work Phone: CO2 [Moles/Vol] 30.0 mmol/L 21.0-32.0 [facility] Work Phone: Globulin (S) [Mass/Vol] 3.0 g/dL 2.2-4.2 [facility] Work Phone: Urea nitrogen/Creatinine [Mass ratio] 19.3 mg/mg 10-20 [facility] Work Phone: Laboratory - Hematology and Cell countson 12-28-2021 Erythrocyte distribution width (RBC) [Entitic vol] 53.0 fL 35.1-43.9 [facility] Work Phone: Erythrocyte distribution width (RBC) [Ratio] 15.5 % 11.6-14.6 [facility] Work Phone: Immature granulocytes/100 WBC (Bld) 0.700 % 0.0-0.9 [facility] Work Phone: Comment on above: IG% - Immature Granu locytes (promyelocytes, myelocytes and metamyelocytes) > 1% indicates that a LEFT SHIFT is Present. MCH (RBC) [Entitic mass] 29.4 pg 27.0-32.0 [facility] Work Phone: Nucleated RBC/100 WBC (Bld) [Ratio] 0 % 0-5 [facility] Work Phone: MCHC Auto (RBC) [Mass/Vol]on 12-28-2021 MCHC (RBC) [Mass/Vol] 31.6 g/dL 32-36 [facility] Work Phone: No Panel Informationon 12-28 Estimated GFR (MDRD) Amer 67 mL/min >60 [facility] Work Phone: Comment on above: GFR Calc Estimated GFR (MDRD) Non-Af Amer 55 mL/min >60 [facility] Work Phone: Comment on above: Non- GFR Calc Platelets bldon 12-28-2021 Platelets (Bld) [#/Vol] 210 10*3/uL 150-450 [facility] Work Phone: Serum or plasma albumin ernst urement (mass/volume)on 12-28-2021 Albumin [Mass/Vol] 3.5 g/dL 3.2-5.0 [facility] Work Phone: Serum or plasma albumin/glob ulin mass ratioon 12-28-2021 Albumin/Globulin [Mass ratio] 1.2 {ratio} 0.9-2.4 [facility] Work Phone: Serum or plasma calcium ernst urement (mass/volume)on 12-28-2021 Calcium [Mass/Vol] 8.6 mg/dL 8.5-10.1 [facility] Work Phone: Serum or plasma creatinine m easurement (mass/volume)on 12-28-2021 Creatinine [Mass/Vol] 1.35 mg/dL 0.70-1.30 [facility] Work Phone: Comment on above: The validity of the calculated GFR & GFRAA in patients over 70 years has not been determined. Clinical correlation is essential. Serum or plasma urea nitroge n measurement (mass/volume)on 12-28-2021 Urea nitrogen [Mass/Vol] 26 mg/dL 7-18 [facility] Work Phone: Thin prep Papanicolaou smear with manual screeningon 12-28-2021 Thin prep Papanicolaou smear with manual screening 12 U/L 15-37 [facility] Work Phone: Thin prep Papanicolaou smear with manual screening 6 5-15 [facility] Work Phone: Absolute lymphocyte counton 10-14-2021 Lymphocytes Auto (Unsp spec) [#/Vol] 0.59 10*3/uL 0.83-4.51 [facility] Work Phone: Basophil percentageon 2021 Basophils/100 WBC (Bld) 0.4 % 0-1 [facility] Work Phone: Bilirubin [Mass/Vol] 0.70 mg/dL 0.20-1.00 [facility] Work Phone: Comment on above: For patients on eltr ombopag therapy, use of Dimension [place] TBIL is not recommended. Chloride [Moles/Vol] 102 mmol/L 98-107 [facility] Work Phone: Eosinophils/100 WBC (Bld) 0.6 % 0-5 [facility] Work Phone: Glucose [Mass/Vol] 120 mg/dL 74-106 [facility] Work Phone: Comment on above: Fasting Glucose resu lt from 100 to 125 mg/dL suggests IMPAIRED HOMEOSTASIS per A.D.A. criteria. Neutrophils (Bld) [#/Vol] 3.9 10*3/uL 2.0-7.7 [facility] Work Phone: Neutrophils/100 WBC (Bld) 77.2 % 47-70 [facility] Work Phone: Potassium [Moles/Vol] 4.3 mmol/L 3.5-5.1 [facility] Work Phone: Protein [Mass/Vol] 6.7 g/dL 6.4-8.2 [facility] Work Phone: Sodium [Moles/Vol] 136 mmol/L 136-145 [facility] Work Phone: WBC (Bld) [#/Vol] 5.0 10*3/uL 4.4-11.0 [facility] Work Phone: Blood erythrocytes count (nu mber/volume)on 10-14-2021 RBC (Bld) [#/Vol] 5.32 10*6/uL 4.6-6.2 [facility] Work Phone: Blood hemoglobin measurement (mass/volume)on 10-14-2021 Hemoglobin (Bld) [Mass/Vol] 15.7 g/dL 13.0-16.5 [facility] Work Phone: Blood lymphocytes/100 leukoc yteson 10-14-2021 Lymphocytes/100 WBC (Bld) 11.8 % 19-41 [facility] Work Phone: Blood monocytes/100 leukocyt eson 10-14-2021 Monocytes/100 WBC (Bld) 9.4 % 0-10 [facility] Work Phone: Blood platelet mean volumeon 10-14-2021 Platelet mean volume (Bld) [Entitic vol] 9.5 fL 6.2-12.0 [facility] Work Phone: Determination of erythrocyte mean corpuscular volume (MCV)on 10-14-2021 MCV (RBC) [Entitic vol] 91.5 fL 80-94 [facility] Work Phone: Hematocrit Auto (Bld) [Volum e fraction]on 10-14-2021 Hematocrit (Bld) [Volume fraction] 48.7 % 40-54 [facility] Work Phone: [phone] Laboratory - Chemistry and C hemistry - challengeon 10-14-2021 ALP [Catalytic activity/Vol] 64 U/L 45-117 [facility] Work Phone: [phone] ALT [Catalytic activity/Vol] 21 U/L 16-61 [facility] Work Phone: [phone] CO2 [Moles/Vol] 25.0 mmol/L 21.0-32.0 [facility] Work Phone: [phone] Globulin (S) [Mass/Vol] 3.2 g/dL 2.2-4.2 [facility] Work Phone: [phone] Urea nitrogen/Creatinine [Mass ratio] 21.5 mg/mg 10-20 [facility] Work Phone: [phone] Laboratory - Hematology and Cell countson 10-14-2021 Erythrocyte distribution width (RBC) [Entitic vol] 52.2 fL 35.1-43.9 [facility] Work Phone: [phone] Erythrocyte distribution width (RBC) [Ratio] 15.5 % 11.6-14.6 [facility] Work Phone: Immature granulocytes/100 WBC (Bld) 0.600 % 0.0-0.9 [facility] Work Phone: Comment on above: IG% - Immature Granu locytes (promyelocytes, myelocytes and metamyelocytes) > 1% indicates that a LEFT SHIFT is Present. MCH (RBC) [Entitic mass] 29.5 pg 27.0-32.0 [facility] Work Phone: Nucleated RBC/100 WBC (Bld) [Ratio] 0 % 0-5 [facility] Work Phone: MCHC Auto (RBC) [Mass/Vol]on 10-14-2021 MCHC (RBC) [Mass/Vol] 32.2 g/dL 32-36 [facility] Work Phone: No Panel Informationon 10-14 Estimated GFR (MDRD) Amer 76 mL/min >60 [facility] Work Phone: Comment on above: GFR Calc Estimated GFR (MDRD) Non-Af Amer 63 mL/min >60 [facility] Work Phone: Comment on above: Non- GFR Calc Platelets bldon 10-14-2021 Platelets (Bld) [#/Vol] 206 10*3/uL 150-450 [facility] Work Phone: Serum or plasma albumin ernst urement (mass/volume)on 10-14-2021 Albumin [Mass/Vol] 3.5 g/dL 3.2-5.0 [facility] Work Phone: Serum or plasma albumin/glob ulin mass ratioon 10-14-2021 Albumin/Globulin [Mass ratio] 1.1 {ratio} 0.9-2.4 [facility] Work Phone: Serum or plasma calcium ernst urement (mass/volume)on 10-14-2021 Calcium [Mass/Vol] 9.1 mg/dL 8.5-10.1 [facility] Work Phone: Serum or plasma creatinine m easurement (mass/volume)on 10-14-2021 Creatinine [Mass/Vol] 1.21 mg/dL 0.70-1.30 [facility] Work Phone: Comment on above: The validity of the calculated GFR & GFRAA in patients over 70 years has not been determined. Clinical correlation is essential. Serum or plasma urea nitroge n measurement (mass/volume)on 10-14-2021 Urea nitrogen [Mass/Vol] 26 mg/dL 7-18 [facility] Work Phone: Thin prep Papanicolaou smear with manual screeningon 10-14-2021 Thin prep Papanicolaou smear with manual screening 13 U/L 15-37 [facility] Work Phone: Thin prep Papanicolaou smear with manual screening 9 5-15 [facility] Work Phone: Vital Signs Date Time Vital Sign Value Performing Clinician Facility 02-21-2025 09:53-0400 Body height 175.[address] Ovidio Vincent MD Work Phone: [facility] 02-21-2025 09:53-0400 Body mass index (BMI) [Ratio] 31.6 kg/m2 Dr. Ovidio Vincent MD Work Phone: [facility] 02-21-2025 09:53-0400 Body weight 97.[address] Ovidio Vincent MD Work Phone: [facility] 02-17-2025 08:16-0400 Body mass index (BMI) [Ratio] 31.6 kg/m2 Dr. Ovidio Vincent MD Work Phone: [facility] 02-17-2025 08:16-0400 Body weight 97.[address] Ovidio Vincent MD Work Phone: [facility] 02-17-2025 08:16-0400 Diastolic blood pressure 57 mm[Hg] Dr. Ovidio Vincent MD Work Phone: [facility] 02-17-2025 08:16-0400 Heart rate 66 /min Dr. Ovidio Vincent MD Work Phone: [facility] 02-17-2025 08:16-0400 Respiratory rate 18 /min Dr. Ovidio Vincent MD Work Phone: [facility] 02-17-2025 08:16-0400 Systolic blood pressure 101 mm[Hg] Dr. Ovidio Vincent MD Work Phone: [facility] 12-05-2024 10:30-0400 Body height 175.[address] Ovidio Vincent MD Work Phone: [facility] 12-05-2024 10:30-0400 Body mass index (BMI) [Ratio] 30.9 kg/m2 Dr. Ovidio Vincent MD Work Phone: [facility] 12-05-2024 10:30-0400 Body weight 95.[address] Ovidio Vincent MD Work Phone: [facility] 11-18-2024 07:25-0500 Body mass index (BMI) [Ratio] 30.39 kg/m2 Rebecca Jansen APRN.DOUGHNUT IC[employer] MACHINE Work Phone: [facility] 11-18-2024 07:25-0500 Body weight 95.4 kg Rebecca Jansen APRN.[employer]OUGHN[employer] IC[employer] MACHINE Work Phone: [facility] 11-18-2024 07:25-0500 Diastolic blood pressure 69 mm[Hg] Rebecca Jansen APRN.[employer]OUGHN[employer] IC[employer] MACHINE Work Phone: [facility] 11-18-2024 07:25-0500 Heart rate 52 /min Rebecca Jansen APRN.[employer]OUGHN[employer] MACHINE Work Phone: [facility] 11-18-2024 07:25-0500 Systolic blood pressure 130 mm[Hg] Rebecca Jansen APRN.DOUGHN[employer] ICER MACHINE Work Phone: [facility] 05-30-2024 09:32-0400 Body height 177.2 cm Ovidio Vincent MD Work Phone: [facility] 05-30-2024 09:32-0400 Body mass index (BMI) [Ratio] 30.64 kg/m2 Ovidio Vincent MD Work Phone: [facility] 05-30-2024 09:32-0400 Body weight 96.16 kg Ovidio Vincent MD Work Phone: [facility] 05-30-2024 09:32-0400 Diastolic blood pressure 66 mm[Hg] Ovidio Vincent MD Work Phone: [facility] 05-30-2024 09:32-0400 Heart rate 89 /min Ovidio Vincent MD Work Phone: [facility] 05-30-2024 09:32-0400 Systolic blood pressure 119 mm[Hg] Ovidio Vincent MD Work Phone: [facility] 05-27-2024 09:45-0400 Body height 175.3 cm Hayde Ward MD Work Phone: [facility] 05-27-2024 09:45-0400 Body mass index (BMI) [Ratio] 31.84 kg/m2 Hayde Ward MD Work Phone: [facility] 05-27-2024 09:45-0400 Body weight 97.8 kg Hayde Ward MD Work Phone: [facility] 05-27-2024 09:45-0400 Diastolic blood pressure 70 mm[Hg] Hayde Ward MD Work Phone: [facility] 05-27-2024 09:45-0400 Heart rate 82 /min Hayde Ward MD Work Phone: [facility] 05-27-2024 09:45-0400 SaO2% (BldA) [Mass fraction] 98 % Hayde Ward MD Work Phone: [facility] 05-27-2024 09:45-0400 Systolic blood pressure 118 mm[Hg] Hayde Ward MD Work Phone: [facility] 05-27-2024 07:05-0400 Body mass index (BMI) [Ratio] 31.6 kg/m2 Leslye Winter PA-C Work Phone: [facility] 05-27-2024 07:05-0400 Body temperature 97.39 [degF] Leslye Winter PA-C Work Phone: [facility] 05-27-2024 07:05-0400 Body weight 97.07 kg Leslye Winter PA-C Work Phone: [facility] 05-27-2024 07:05-0400 Diastolic blood pressure 72 mm[Hg] Leslye Winter PA-C Work Phone: [facility] 05-27-2024 07:05-0400 Heart rate 69 /min Leslye Winter PA-C Work Phone: [facility] 05-27-2024 07:05-0400 Respiratory rate 18 /min Leslye Winter PA-C Work Phone: [facility] 05-27-2024 07:05-0400 SaO2% (BldA) [Mass fraction] 95 % Leslye HELLER-C Work Phone: [facility] 05-27-2024 07:05-0400 Systolic blood pressure 128 mm[Hg] Leslye HELLER-C Work Phone: [facility] 05-03-2024 10:17-0400 Body mass index (BMI) [Ratio] 31.16 kg/m2 Murray Mooney MD Work Phone: [facility] 05-03-2024 10:17-0400 Body temperature 97.39 [degF] Murray Mooney MD Work Phone: [facility] 05-03-2024 10:17-0400 Body weight 95.71 kg Murray Mooney MD Work Phone: [facility] 05-03-2024 10:17-0400 Diastolic blood pressure 65 mm[Hg] Murray Mooney MD Work Phone: [facility] 05-03-2024 10:17-0400 Heart rate 87 /min Murray Mooney MD Work Phone: [facility] 05-03-2024 10:17-0400 SaO2% (BldA) [Mass fraction] 95 % Murray Mooney MD Work Phone: [facility] 05-03-2024 10:17-0400 Systolic blood pressure 115 mm[Hg] Murray Mooney MD Work Phone: [facility] 04-16-2024 08:28-0400 Diastolic blood pressure 83 mm[Hg] Ovidio Vincent MD Work Phone: [facility] 04-16-2024 08:28-0400 Systolic blood pressure 135 mm[Hg] Ovidio Vincent MD Work Phone: [facility] 04-16-2024 08:08-0400 Body mass index (BMI) [Ratio] 31.16 kg/m2 Ovidio Vincent MD Work Phone: [facility] 04-16-2024 08:08-0400 Body weight 95.71 kg Ovidio Vincent MD Work Phone: [facility] 04-16-2024 08:08-0400 Respiratory rate 18 /min Ovidio Vincent MD Work Phone: [facility] 01-03-2024 10:21-0400 Diastolic blood pressure 60 mm[Hg] Ovidio Vincent MD Work Phone: [facility] 01-03-2024 10:21-0400 Systolic blood pressure 122 mm[Hg] Ovidio Vincent MD Work Phone: [facility] 01-03-2024 09:52-0400 Body weight 97.52 kg Ovidio Vincent MD Work Phone: [facility] 01-03-2024 09:52-0400 Heart rate 76 /min Ovidio Vincent MD Work Phone: [facility] 01-03-2024 09:52-0400 Respiratory rate 16 /min Ovidio Vincent MD Work Phone: [facility] 11-27-2023 08:10-0400 Body height 175.3 cm Christine Gmaing APRN.CNP Work Phone: [facility] 11-27-2023 08:10-0400 Body temperature 98.1 [degF] Christine Harrison ORTHOTIC TECHNICIAN.[employer] MACHINE Work Phone: [facility] 11-27-2023 08:10-0400 Body weight 100.88 kg Christine Luongpster ORTHOTIC TECHNICIAN.[employer] MACHINE Work Phone: [facility] 11-27-2023 08:10-0400 Diastolic blood pressure 64 mm[Hg] Christine Harrison ORTHOTIC TECHNICIAN.[employer] MACHINE Work Phone: [facility] 11-27-2023 08:10-0400 Heart rate 51 /min Christine Harrison ORTHOTIC TECHNICIAN.[employer] MACHINE Work Phone: [facility] 11-27-2023 08:10-0400 SaO2% (BldA) [Mass fraction] 97 % Christine Harrison ORTHOTIC TECHNICIAN.[employer] MACHINE Work Phone: [facility] 11-27-2023 08:10-0400 Systolic blood pressure 108 mm[Hg] Christine Luongpster ORTHOTIC TECHNICIAN.[employer]OUGHN[employer] IC[employer] MACHINE Work Phone: [facility] 11-01-2023 09:48-0500 Body weight 99.79 kg Loretta Leon PA-C Work Phone: [facility] 08-17-2023 15:22-0500 Body height 175.[address] Ovidio Vincent Work Phone: [facility] 08-17-2023 15:22-0500 Body mass index (BMI) [Ratio] 33 kg/m2 Dr. Ovidio Vincent Work Phone: [facility] 08-17-2023 15:22-0500 Body weight 101.[address] Ovidio Vincent Work Phone: [facility] 08-17-2023 15:22-0500 Diastolic blood pressure 81 mm[Hg] Dr. Ovidio Vincent Work Phone: [facility] 08-17-2023 15:22-0500 Heart rate 82 /min Dr. Ovidio Vincent Work Phone: [facility] 08-17-2023 15:22-0500 Respiratory rate 16 /min Dr. Ovidio Vincent Work Phone: [facility] 08-17-2023 15:22-0500 Systolic blood pressure 137 mm[Hg] Dr. Ovidio Vincent Work Phone: [facility] 08-01-2023 10:41-0500 Body weight 100.25 kg Rebecca Jansen ORTHOTIC TECHNICIAN.[employer] MACHINE Work Phone: [facility] 08-01-2023 10:41-0500 Diastolic blood pressure 80 mm[Hg] Rebecca Jansen ORTHOTIC TECHNICIAN.DOUGHN[employer] MACHINE Work Phone: [facility] 08-01-2023 10:41-0500 Heart rate 86 /min Rebecca Jansen ORTHOTIC TECHNICIAN.DOUGHN[employer] MACHINE Work Phone: [facility] 08-01-2023 10:41-0500 Respiratory rate 16 /min Rebecca Jansen ORTHOTIC TECHNICIAN.DOUGHN[employer] IC[employer] MACHINE Work Phone: [facility] 08-01-2023 10:41-0500 Systolic blood pressure 128 mm[Hg] Rebecca Jansen ORTHOTIC TECHNICIAN.DOUGHN[employer] IC[employer] MACHINE Work Phone: [facility] 07-12-2023 08:57-0400 Body height 175.3 cm Loretta Marquise PA-C Work Phone: [facility] 07-12-2023 08:57-0400 Body weight 105.23 kg Loretta Marquise PA-C Work Phone: [facility] 07-12-2023 08:57-0400 Diastolic blood pressure 72 mm[Hg] Loretta Marquise PA-C Work Phone: [facility] 07-12-2023 08:57-0400 Heart rate 68 /min Loretta Marquise PA-C Work Phone: [facility] 07-12-2023 08:57-0400 Respiratory rate 14 /min Loretta Marquise PA-C Work Phone: [facility] 07-12-2023 08:57-0400 SaO2% (BldA) [Mass fraction] 96 % Loretta Payneone PA-C Work Phone: [facility] 07-12-2023 08:57-0400 Systolic blood pressure 130 mm[Hg] Loretta Leon PA-C Work Phone: [facility] 06-12-2023 13:22-0400 Body temperature 98.01 [degF] Ovidio Vincent MD Work Phone: [facility] 06-12-2023 13:22-0400 Body weight 100.43 kg Ovidio Vincent MD Work Phone: [facility] 06-12-2023 13:22-0400 Diastolic blood pressure 74 mm[Hg] Ovidio Vincent MD Work Phone: [facility] 06-12-2023 13:22-0400 Heart rate 80 /min Ovidio Vincent MD Work Phone: [facility] 06-12-2023 13:22-0400 Respiratory rate 16 /min Ovidio Vincent MD Work Phone: [facility] 06-12-2023 13:22-0400 Systolic blood pressure 120 mm[Hg] Ovidio Vincent MD Work Phone: [facility] 05-25-2023 11:59-0400 Body temperature 99.5 [degF] Marni Athy PA-C Work Phone: [facility] 05-25-2023 11:59-0400 Body weight 101.61 kg Marni Athy PA-C Work Phone: [facility] 05-25-2023 11:59-0400 Diastolic blood pressure 78 mm[Hg] Marni Athy PA-C Work Phone: [facility] 05-25-2023 11:59-0400 Heart rate 90 /min Marni Athy PA-C Work Phone: [facility] 05-25-2023 11:59-0400 Respiratory rate 22 /min Marni Athy PA-C Work Phone: [facility] 05-25-2023 11:59-0400 SaO2% (BldA) [Mass fraction] 95 % Marni Carlos PA-C Work Phone: [facility] 05-25-2023 11:59-0400 Systolic blood pressure 136 mm[Hg] Marni Carlos PA-C Work Phone: [facility] 05-02-2023 09:25-0400 Body height 175.[address] Ovidio Vincent Work Phone: [facility] 05-02-2023 09:25-0400 Body mass index (BMI) [Ratio] 33.2 kg/m2 Dr. Ovidio Vincent Work Phone: [facility] 05-02-2023 09:25-0400 Body weight 102.[address] Ovidio Vincent Work Phone: [facility] 05-02-2023 09:25-0400 Diastolic blood pressure 76 mm[Hg] Dr. Ovidio Vincent Work Phone: [facility] 05-02-2023 09:25-0400 Heart rate 80 /min Dr. Ovidio Vincent Work Phone: [facility] 05-02-2023 09:25-0400 Respiratory rate 16 /min Dr. Ovidio Vincent Work Phone: [facility] 05-02-2023 09:25-0400 Systolic blood pressure 123 mm[Hg] Dr. Ovidio Vincent Work Phone: [facility] 03-30-2023 06:57-0400 Body temperature 97.7 [degF] Leslye Winter PA-C Work Phone: [facility] 03-30-2023 06:57-0400 Body weight 101.61 kg Lesley Winter PA-C Work Phone: [facility] 03-30-2023 06:57-0400 Diastolic blood pressure 80 mm[Hg] Leslye Winter PA-C Work Phone: [facility] 03-30-2023 06:57-0400 Heart rate 80 /min Leslye HELLER-C Work Phone: [facility] 03-30-2023 06:57-0400 Respiratory rate 18 /min Leslye Winter PA-C Work Phone: [facility] 03-30-2023 06:57-0400 Systolic blood pressure 116 mm[Hg] Leslye HELLER-C Work Phone: [facility] 03-22-2023 16:37-0400 Body height 175.26 cm [facility] 03-22-2023 16:37-0400 Body mass index (BMI) [Ratio] 33 kg/m2 [facility] 03-22-2023 16:37-0400 Body temperature 96.7 [degF] [facility] 03-22-2023 16:37-0400 Body weight 101.6 kg [facility] 03-22-2023 16:37-0400 Diastolic blood pressure 83 mm[Hg] [facility] 03-22-2023 16:37-0400 Heart rate 86 /min [facility] 03-22-2023 16:37-0400 Respiratory rate 18 /min [facility] 03-22-2023 16:37-0400 SaO2% (BldA) [Mass fraction] 97 % [facility] 03-22-2023 16:37-0400 Systolic blood pressure 154 mm[Hg] [facility] 02-17-2023 13:13-0400 Body temperature 98.3 [degF] [facility] 02-17-2023 13:13-0400 Diastolic blood pressure 75 mm[Hg] [facility] 02-17-2023 13:13-0400 Heart rate 81 /min [facility] 02-17-2023 13:13-0400 Respiratory rate 16 /min [facility] 02-17-2023 13:13-0400 SaO2% (BldA) [Mass fraction] 98 % [facility] 02-17-2023 13:13-0400 Systolic blood pressure 114 mm[Hg] [facility] 02-17-2023 12:21-0400 Body height 175.26 cm [facility] 02-17-2023 12:21-0400 Body mass index (BMI) [Ratio] 34.3 kg/m2 [facility] 02-17-2023 12:21-0400 Body weight 105.5 kg [facility] 02-17-2023 08:38-0400 Body weight 104.33 kg Ovidio Vincent MD Work Phone: [facility] 02-17-2023 08:38-0400 Diastolic blood pressure 94 mm[Hg] Ovidio Vincent MD Work Phone: [facility] 02-17-2023 08:38-0400 Heart rate 80 /min Ovidio Vincent MD Work Phone: [facility] 02-17-2023 08:38-0400 Respiratory rate 18 /min Ovidio Vincent MD Work Phone: [facility] 02-17-2023 08:38-0400 Systolic blood pressure 144 mm[Hg] Ovidio Vincent MD Work Phone: [facility] 02-10-2023 12:01-0400 Heart rate 87 /min [facility] 02-10-2023 12:01-0400 SaO2% (BldA) [Mass fraction] 98 % [facility] 02-10-2023 08:14-0400 Body mass index (BMI) [Ratio] 31.7 kg/m2 [facility] 02-10-2023 08:14-0400 Body temperature 97.1 [degF] [facility] 02-10-2023 08:14-0400 Body weight 97.52 kg [facility] 02-10-2023 08:14-0400 Diastolic blood pressure 87 mm[Hg] [facility] 02-10-2023 08:14-0400 Respiratory rate 14 /min [facility] 02-10-2023 08:14-0400 Systolic blood pressure 154 mm[Hg] [facility] 01-14-2023 06:11-0400 Diastolic blood pressure 71 mm[Hg] [facility] 01-14-2023 06:11-0400 Heart rate 87 /min [facility] 01-14-2023 06:11-0400 Respiratory rate 16 /min [facility] 01-14-2023 06:11-0400 Systolic blood pressure 98 mm[Hg] [facility] 01-13-2023 15:45-0400 Body temperature 97.2 [degF] [facility] 01-13-2023 15:45-0400 SaO2% (BldA) [Mass fraction] 93 % [facility] 01-11-2023 11:35-0400 Body height 175.26 cm [facility] 01-11-2023 11:35-0400 Body weight 96.47 kg [facility] 01-10-2023 10:47-0400 Body mass index (BMI) [Ratio] 31.4 kg/m2 [facility] 12-16-2022 11:59-0400 Body weight 98.88 kg Ovidio Vincent MD Work Phone: [facility] 12-16-2022 11:59-0400 Diastolic blood pressure 70 mm[Hg] Ovidio Vincent MD Work Phone: [facility] 12-16-2022 11:59-0400 Heart rate 72 /min Ovidio Vincent MD Work Phone: [facility] 12-16-2022 11:59-0400 Respiratory rate 18 /min Ovidio Vincent MD Work Phone: [facility] 12-16-2022 11:59-0400 Systolic blood pressure 128 mm[Hg] Ovidio Vincent MD Work Phone: [facility] 11-07-2022 09:38-0500 Body height 175.3 cm Mitchel Jones MD Work Phone: [facility] 11-07-2022 09:38-0500 Body temperature 97.9 [degF] Mitchel Jones MD Work Phone: [facility] 11-07-2022 09:38-0500 Body weight 103.19 kg Mitchel Jones MD Work Phone: [facility] 11-07-2022 09:38-0500 Diastolic blood pressure 86 mm[Hg] Mitchel Jones MD Work Phone: [facility] 11-07-2022 09:38-0500 Heart rate 51 /min Mitchel Jones MD Work Phone: [facility] 11-07-2022 09:38-0500 Systolic blood pressure 131 mm[Hg] Mitchel Jones MD Work Phone: [facility] 11-03-2022 08:15-0500 Diastolic blood pressure 81 mm[Hg] Ovidio Vincent MD Work Phone: [facility] 11-03-2022 08:15-0500 Heart rate 75 /min Ovidio Vincent MD Work Phone: [facility] 11-03-2022 08:15-0500 Systolic blood pressure 135 mm[Hg] Ovidio Vincent MD Work Phone: [facility] 11-03-2022 07:55-0500 Body weight 104.33 kg Ovidio Vincent MD Work Phone: [facility] 11-03-2022 07:55-0500 Respiratory rate 16 /min Ovidio Vincent MD Work Phone: [facility] 10-28-2022 09:14-0500 Body weight 104.33 kg Hayde Ward MD Work Phone: [facility] 09-30-2022 08:27-0500 Diastolic blood pressure 68 mm[Hg] Ovidio Vincent MD Work Phone: [facility] 09-30-2022 08:27-0500 Systolic blood pressure 134 mm[Hg] Ovidio Vincent MD Work Phone: [facility] 09-30-2022 08:01-0500 Body height 177.2 cm Ovidio Vnicent MD Work Phone: [facility] 09-30-2022 08:01-0500 Body weight 102.97 kg Ovidio Vincent MD Work Phone: [facility] 09-30-2022 08:01-0500 Heart rate 68 /min Ovidio Vincent MD Work Phone: [facility] 09-30-2022 08:01-0500 Respiratory rate 16 /min Ovidio Vincent MD Work Phone: [facility] 08-08-2022 08:56-0500 Body height 177.8 cm Hayde Ward MD Work Phone: [facility] 08-08-2022 08:56-0500 Body weight 98.4 kg Hayde Ward MD Work Phone: [facility] 08-08-2022 08:56-0500 Diastolic blood pressure 83 mm[Hg] Hayde Ward MD Work Phone: [facility] 08-08-2022 08:56-0500 Heart rate 77 /min Hayde Ward MD Work Phone: [facility] 08-08-2022 08:56-0500 Respiratory rate 14 /min Hayde Ward MD Work Phone: [facility] 08-08-2022 08:56-0500 SaO2% (BldA) [Mass fraction] 96 % Hayde Ward MD Work Phone: [facility] 08-08-2022 08:56-0500 Systolic blood pressure 156 mm[Hg] Hayde Ward MD Work Phone: [facility] 07-04-2022 13:45-0400 Body weight 98.88 kg Ovidio Vincent MD Work Phone: [facility] 07-04-2022 13:45-0400 Diastolic blood pressure 80 mm[Hg] Ovidio Vincent MD Work Phone: [facility] 07-04-2022 13:45-0400 Heart rate 86 /min Ovidio Vincent MD Work Phone: [facility] 07-04-2022 13:45-0400 Respiratory rate 18 /min Ovidio Vincent MD Work Phone: [facility] 07-04-2022 13:45-0400 Systolic blood pressure 122 mm[Hg] Ovidio Vincent MD Work Phone: [facility] 04-26-2022 08:55-0400 Body height 177.5 cm Ela Alvarez MD Work Phone: [facility] 04-26-2022 08:55-0400 Body temperature 97.59 [degF] Ela Alvarez MD Work Phone: [facility] 04-26-2022 08:55-0400 Body weight 98.2 kg Ela Alvarez MD Work Phone: [facility] 04-26-2022 08:55-0400 Diastolic blood pressure 91 mm[Hg] Ela Alvarez MD Work Phone: [facility] 04-26-2022 08:55-0400 Heart rate 80 /min Ela Alvarez MD Work Phone: [facility] 04-26-2022 08:55-0400 SaO2% (BldA) [Mass fraction] 96 % Ela Alvarez MD Work Phone: [facility] 04-26-2022 08:55-0400 Systolic blood pressure 155 mm[Hg] Ela Alvarez MD Work Phone: [facility] 03-22-2022 07:02-0400 Body temperature 97.59 [degF] Leslye Winter PA-C Work Phone: [facility] 03-22-2022 07:02-0400 Body weight 99.34 kg Leslye HELLER-C Work Phone: [facility] 03-22-2022 07:02-0400 Diastolic blood pressure 86 mm[Hg] Leslye Winter PA-C Work Phone: [facility] 03-22-2022 07:02-0400 Heart rate 72 /min Leslye Winter PA-C Work Phone: [facility] 03-22-2022 07:02-0400 Respiratory rate 18 /min Leslye Winter PA-C Work Phone: [facility] 03-22-2022 07:02-0400 Systolic blood pressure 126 mm[Hg] Leslye Winter PA-C Work Phone: [facility] 01-20-2022 09:01-0400 Body height 177.8 cm Loretta Payneone PA-C Work Phone: [facility] 01-20-2022 09:01-0400 Body temperature 97.39 [degF] Loretta Marquise PA-C Work Phone: [facility] 01-20-2022 09:01-0400 Body weight 100.88 kg Loretta Marquise PA-C Work Phone: [facility] 01-20-2022 09:01-0400 Diastolic blood pressure 68 mm[Hg] Loretta Marquise PA-C Work Phone: [facility] 01-20-2022 09:01-0400 Heart rate 91 /min Loretta Marquise PA-C Work Phone: [facility] 01-20-2022 09:01-0400 Respiratory rate 18 /min Loretta Marquise PA-C Work Phone: [facility] 01-20-2022 09:01-0400 SaO2% (BldA) [Mass fraction] 96 % Loretta Marquise PA-C Work Phone: [facility] 01-20-2022 09:01-0400 Systolic blood pressure 131 mm[Hg] Loretta Marquise PA-C Work Phone: [facility] Encounters Encounter Date Encounter Type Care Provider Facility Start: 02-21-2025 Encounter for other preprocedural examination Caio Gomez [facility] Start: 02-21-2025 End: 02-21-[address] Caio Gomez MD [facility] Work Phone: Start: 02-21-2025 End: 02-21-[address] Ovidio Vincent MD Work Phone: [facility] Work Phone: Start: 02-17-2025 End: 02-17-2025 Chart abstracting Ovidio Vincent MD Work Phone: [facility] [place] Comment on above: Outside Cardiology Outside [id number] Ordered Start: 02-17-2025 Encounter for preprocedural cardiovascular examination Patsy Gamble [facility] Start: 02-17-2025 End: 02-17-[address] Patsy Gamble MD -[facility] Work Phone: Start: 02-17-2025 End: 02-17-[address] Patsy Gamble MD [facility] Start: 02-17-2025 End: 02-17-[address] Ovidio Vincent MD Work Phone: [facility] Work Phone: Start: 02-06-2025 End: 02-11-2025 Telephone encounter Ramu Alanis MA [facility] [place] Comment on above: Patient Update (Medi ollie Clearance from [facility] ) Start: 01-16-2025 End: 01-16-2025 Refill Leslye Winter PA-C Work Phone: [facility] [place] Comment on above: Refill Request Start: 01-14-2025 ambulatory [facility] Facility:[facility] Start: 01-03-2025 End: 01-03-2025 Chart abstracting Ovidio Vincent MD Work Phone: Family [facility] Comment on above: Outside Ortho Start: 01-02-2025 End: 01-02-[address] Caio Gomez MD [facility] Work Phone: Start: 01-02-2025 End: 01-02-2025 ambulatory Caio Gomez [place] Start: 12-27-2024 End: 12-27-2024 ambulatory OVIDIO VINCENT Facility:[facility] Start: 12-27-2024 End: 12-27-2024 Subsequent hospital visit by physician [facility] (I-Stat/1.5t) Work Phone: Radiology Start: 12-20-2024 End: 12-20-2024 ambulatory OVIDIO VINCENT Facility:[facility] Start: 12-20-2024 End: 12-20-2024 Patient encounter procedure Esvin Junejulian Work Phone: Podiatry Comment on above: Diabetic polyneuropa thy associated with type 2 diabetes mellitus (HCC) (Primary Dx); Onychomycosis; PAD (peripheral artery disease); Pain in toe of left foot; Pain in toe of right foot Start: 12-11-2024 End: 12-11-2024 Refill Ovidio Vincent MD Work Phone: [facility] [place] Comment on above: Refill Request Start: 12-06-2024 End: 12-06-2024 Chart abstracting Ovidio Vincent MD Work Phone: [facility] [place] Comment on above: Outside Ortho Start: 12-05-2024 End: 12-05-[address] Caio Gomez MD [facility] Work Phone: Start: 12-05-2024 End: 12-05-2024 ambulatory Caio Gomez Facility:[facility] Start: 11-30-2024 End: 12-02-2024 Refill Leslye Winter PA-C Work Phone: [facility] [place] Comment on above: Refill Request Start: 11-19-2024 End: 11-20-2024 Follow-up encounter Rebecca Jansen APRN.CNP Work Phone: [facility] [place] Comment on above: Refill Request Start: 11-18-2024 End: 11-18-2024 Patient encounter procedure Rebecca Janesn APRN.CNP Work Phone: [facility] [place] Comment on above: Advanced directives, counseling/discussion (Primary Dx); Multiple myeloma in remission (HCC); H/O autologous stem cell transplant (HCC); Pulmonary arterial hypertension (HCC); Chronic obstructive pulmonary disease, unspecified COPD type (HCC); Atrial fibrillation, unspecified type (HCC); Inflammatory polyarthropathy (HCC); Type 2 diabetes mellitus with stage 3a chronic kidney disease, without long-term current use of insulin (HCC); Screening for colon cancer; Encounter for screening for lung cancer; Type 2 diabetes mellitus without complication, without long-term current use of insulin (HCC); Paroxysmal atrial fibrillation (HCC); Essential hypertension; Mixed hyperlipidemia; Gastroesophageal reflux disease, unspecified whether esophagitis present; Spinal stenosis, lumbar region, without neurogenic claudication; Obesity, Class I, BMI 30-34.9 Start: 11-18-2024 End: 11-18-2024 ambulatory OVIDIO VINCENT Facility:[facility] Start: 11-12-2024 End: 11-12-2024 Telephone encounter Murray Mooney MD Work Phone: Hematology/Oncology Comment on above: Results Start: 11-04-2024 End: 11-04-2024 ambulatory OVIDIO VINCENT Facility:[facility] Start: 10-02-2024 End: 10-02-2024 Refill Rebecca Jansen APRN.CNP Work Phone: [employer] [employer] [facility] Comment on above: Refill Request Start: 10-01-2024 End: 10-01-2024 Orders Only Adonis Theodore MA [facility] [place] Start: 09-30-2024 End: 09-30-2024 ambulatory Rebecca Cheek MA [facility] [place] Start: 09-30-2024 End: 09-30-2024 Patient encounter procedure Rebecca Cheek MA [facility] [place] Comment on above: Population Health Na vigation Outreach ([facility]/) Start: 09-03-2024 End: 09-03-2024 Refill Ovidio Vincent MD Work Phone: Family [facility] Comment on above: Refill Request Start: 08-21-2024 ambulatory Patsy Tye Facility:[facility] Start: 08-21-2024 End: 08-21-2024 ambulatory Patsy Tye Facility:[facility] Start: 08-09-2024 End: 08-09-2024 Chart abstracting Ovidio Vincent MD Work Phone: [facility] [place] Comment on above: Outside Cardiology Start: 08-08-2024 End: 08-08-2024 ambulatory Patsy Tye Facility:[facility] Start: 08-05-2024 End: 08-05-2024 Telephone encounter Ovidio Vincent MD Work Phone: [facility] [place] Comment on above: Results Start: 08-01-2024 End: 08-01-2024 ambulatory OVIDIO VINCENT Facility:[facility] Start: 07-11-2024 End: 07-11-2024 Refill Leslye Winter PA-C Work Phone: [facility] [place] Comment on above: Refill Request Community Monitoring Outreach (3rd attempt this sequence Telephonic Outreach [facility]M Home Monitoring/) Start: 07-02-2024 End: 07-02-2024 ambulatory OVIDIO VINCENT Facility:[facility] Start: 07-02-2024 End: 07-02-2024 Patient encounter procedure Esvin Angeline Work Phone: Podiatry Comment on above: Onychomycosis (Prima ry Dx); Type 2 diabetes mellitus without complication, without long-term current use of insulin (HCC); PAD (peripheral artery disease) ([facility]); Callus Start: 07-01-2024 End: 07-01-2024 ambulatory Ovidio Vincent MD Work Phone: [facility] [place] Comment on above: RSV vaccine Start: 06-27-2024 End: 06-27-2024 ambulatory Marta Lui RN Work Phone: [facility] [employer] [facility] Comment on above: Community Monitoring Outreach (2nd attempt Telephonic Outreach [facility] Home Monitoring) Start: 06-26-2024 End: 06-26-2024 Telephone encounter Leslye Winter PA-C Work Phone: [facility] [place] Comment on above: Patient Update Start: 06-13-2024 End: 06-13-2024 ambulatory Marta Lui RN Work Phone: [facility] Comment on above: Community Monitoring Outreach (Telephonic Outreach [facility] Home Monitoring) Start: 05-30-2024 End: 05-30-2024 Ophthalmic examination and evaluation Ovidio Vincent MD Work Phone: [facility] Start: 05-30-2024 End: 05-30-2024 Patient encounter procedure Ovidio Vincent MD Work Phone: [facility] Comment on above: Medicare annual well ness visit, subsequent (Primary Dx); Diabetic eye exam (HCC); Type 2 diabetes mellitus without complication, without long-term current use of insulin (HCC); Essential hypertension; Mixed hyperlipidemia; Bilateral carotid artery stenosis; Bilateral leg edema; Chronic obstructive pulmonary disease, unspecified COPD type (HCC); Pulmonary hypertension, unspecified (HCC); Dilated aortic root (HCC); Paroxysmal atrial fibrillation (HCC); Peripheral autonomic neuropathy in disorders classified elsewhere; Gastroesophageal reflux disease, unspecified whether esophagitis present; Multiple myeloma, remission status unspecified (HCC); Multiple myeloma in remission (HCC); 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); 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HCC); 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 Start: 05-29-2024 End: 05-30-2024 Telephone encounter Ovidio Vincent MD Work Phone: [facility] [place] Comment on above: Results Start: 05-29-2024 End: 05-29-2024 ambulatory OVIDIO VINCENT Facility:[facility] Start: 05-29-2024 End: 05-29-2024 Subsequent hospital visit by physician [facility] (I-Stat/1.5t) Work Phone: Radiology Comment on above: Vertigo [R42] Start: 05-27-2024 End: 05-27-2024 ambulatory OVIDIO VINCENT Facility:[facility] Start: 05-27-2024 End: 05-27-2024 Patient encounter procedure Leslye Winter PA-C Work Phone: [facility] [place] Comment on above: Pyogenic arthritis o f right elbow, due to unspecified organism (HCC) (Primary Dx); Iron deficiency anemia, unspecified iron deficiency anemia type; Essential hypertension; Pseudogout COPD, mild (HCC) (Pr imary Dx); Former cigarette smoker; Lung nodules Start: 05-10-2024 End: 05-10-2024 Refill Marta Lui RN Work Phone: [facility] Comment on above: Refill Request Community Monitoring Outreach (Telephonic Outreach [facility] Home Monitoring) Start: 05-03-2024 End: 05-03-2024 ambulatory Murray Mooney MD Work Phone: Hematology/Oncology Comment on above: Multiple myeloma in remission (HCC) (Primary Dx) Start: 05-03-2024 End: 05-03-2024 Patient encounter procedure Murray Mooney MD Work Phone: Hematology/Oncology Start: 04-26-2024 End: 04-26-2024 ambulatory Marta Lui RN Work Phone: [facility] Comment on above: Community Monitoring Outreach (2nd attempt Telephonic Outreach [facility] Home Monitoring) Start: 04-25-2024 Chart abstracting Ovidio chou MD Work Phone: Family [facility] [place] Comment on above: PT Discharge Summary Start: 04-25-2024 End: 04-25-2024 ambulatory [facility] Facility:[facility] Start: 04-24-2024 ambulatory Marta Lui RN Work Phone: [facility] Comment on above: Community Monitoring Outreach (Telephonic Outreach [facility] Home Monitoring) Start: 04-16-2024 Telephone encounter Ramu Alanis MA [facility] [place] Comment on above: Appointment (PT - [place]) Start: 04-16-2024 End: 04-16-2024 ambulatory OVIDIO VINCENT Facility:[facility] Start: 04-16-2024 End: 04-16-2024 Patient encounter procedure Ovidio Vincent MD Work Phone: [facility] [place] Comment on above: Vertigo (Primary Dx) ; Neck pain; Muscle spasms of neck; Essential hypertension; Mixed hyperlipidemia; Type 2 diabetes mellitus without complication, without long-term current use of insulin (HCC); Gastroesophageal reflux disease, unspecified whether esophagitis present; Hypomagnesemia; Low serum vitamin B12; Vitamin D deficiency; Prostate disorder; Medication management Start: 04-15-2024 ambulatory Marta Lui RN Work Phone: [facility] Comment on above: Community Monitoring Outreach (Telephonic Outreach [facility] Home Monitoring) Start: 04-08-2024 Refill Leslye Nevarez on PA-C Work Phone: [facility] [place] Comment on above: Refill Request Start: 03-25-2024 ambulatory Patsy Tye Facility:[facility] Start: 03-24-2024 ambulatory Ovidio lara MD Work Phone: [facility] [place] Comment on above: prescriptions Start: 03-15-2024 ambulatory Marta Lui RN Work Phone: [facility] Comment on above: Community Monitoring Outreach (Telephonic Outreach [facility] Home Monitoring) Start: 03-13-2024 Refill Ovidio lara MD Work Phone: [facility] [place] Comment on above: Refill Request Start: 03-12-2024 ambulatory Patsy Tye Facility:[facility] Start: 03-06-2024 Chart abstracting Ovidio chou MD Work Phone: [facility] [place] Comment on above: Outside Cardiology Start: 03-06-2024 End: 03-06-2024 ambulatory Patsy Tye Facility:[facility] Start: 02-16-2024 ambulatory Nataliya Shaffer RN [facility] Comment on above: CDM (Community Monit oring Outreach Call //) Start: 02-15-2024 ambulatory Marta Lui RN Work Phone: [facility] Comment on above: Community Monitoring Outreach (Telephonic Outreach [facility] Home Monitoring) Start: 02-05-2024 Chart abstracting Ovidio chou MD Work Phone: [facility] [place] Comment on above: Outside PT Start: 01-18-2024 ambulatory Marianela Dent RN Work Phone: [facility] Comment on above: Community Monitoring Outreach Start: 01-17-2024 ambulatory Marta Lui RN Work Phone: [facility] Comment on above: Community Monitoring Outreach (Telephonic Outreach [facility] Home Monitoring) Start: 01-16-2024 Telephone encounter Ovidio Vincent MD Work Phone: [facility] [place] Comment on above: Patient Request Start: 01-03-2024 End: 01-03-2024 Patient encounter procedure Ovidio Vincent MD Work Phone: [facility] [place] Comment on above: Pre-op examination ( Primary Dx); Epiretinal membrane (ERM) of left eye; Essential hypertension; Type 2 diabetes mellitus with stage 3a chronic kidney disease, without long-term current use of insulin (HCC); Paroxysmal atrial fibrillation (HCC) Start: 01-03-2024 End: 01-03-2024 Preprocedural examination done Ovidio Vincent MD Work Phone: [facility] Work Phone: Start: 12-26-2023 Preprocedural examin ation done Ovidio Vincent MD Work Phone: [facility] Work Phone: Start: 12-26-2023 Telephone encounter Ovidio Vincent MD Work Phone: [facility] [place] Comment on above: Surgical Clearance Start: 12-21-2023 ambulatory Marta Lui RN Work Phone: [facility] Comment on above: Community Monitoring Outreach (Telephonic Outreach [facility] Home Monitoring) Start: 11-27-2023 End: 11-27-2023 Patient encounter procedure Christine Gaming APRN.[employer]OUGHN[employer] ICER MACHINE Work Phone: Pulmonary Medicine Comment on above: Encounter for screen ing for lung cancer (Primary Dx); Former cigarette smoker Start: 11-23-2023 ambulatory Marta Lui RN Work Phone: [facility] Comment on above: Community Monitoring Outreach (Telephonic Outreach [facility] Home Monitoring) Start: 11-06-2023 Telephone encounter Murray peterson MD Work Phone: Hematology/Oncology Start: 11-01-2023 End: 11-01-2023 Office outpatient visit 25 minutes Loretta Leon PA-C Work Phone: Pulmonary Medicine Comment on above: COPD with chronic br onchitis (Primary Dx); Former cigarette smoker; Lung nodules; Irregular heart beat; Morbid (severe) obesity due to excess calories (HCC) Start: 10-27-2023 Telephone encounter Leslye hogan PA-C Work Phone: [facility] Comment on above: Results Start: 10-11-2023 End: 10-11-[address] Ovidio Vincent Work Phone: [facility] Work Phone: Start: 10-11-2023 End: 10-11-[address] Ovidio Vincent Work Phone: [facility] Work Phone: Start: 09-22-2023 Ophthalmic examinati on and evaluation OVIDIO VINCENT [facility] Start: 09-15-2023 Chart abstracting Ovidio chou MD Work Phone: [facility] Comment on above: Outside Diabetic Eye Exam Start: 09-15-2023 Ophthalmic examinati on and evaluation Ovidio Vincent MD Work Phone: [facility] Start: 08-20-2023 ambulatory Ovidio lara MD Work Phone: [facility] Start: 08-18-2023 Chart abstracting Ovidio chou MD Work Phone: [facility] Comment on above: Outside Cardiology Start: 08-17-2023 End: 08-17-[address] Ovidio Vincent Work Phone: [facility] Work Phone: Start: 08-03-2023 Telephone encounter Rebecca frank APRN.CNP Work Phone: [facility] Comment on above: Results Start: 08-01-2023 End: 08-01-2023 Patient encounter procedure Rebecca Robertrohan LOWRY.DOUGHNUT ICER MACHINE Work Phone: [facility] [place] Comment on above: Pre-op testing (Prim tommy Dx) Start: 08-01-2023 End: 08-01-2023 Patient encounter status Rebecca Jansen ESSENCE.DOUGHNUT ICER MACHINE Work Phone: [facility] Work Phone: Start: 07-31-2023 End: 07-31-2023 Subsequent hospital visit by physician [facility] (I-Stat) Work Phone: Cat Scan Comment on above: Lung nodules [R91.8] Start: 07-26-2023 Admission to [facility] Ovidio Vincent MD Work Phone: [facility] [place] Comment on above: surgery Start: 07-26-2023 ambulatory Marta Lui RN Work Phone: [facility] Comment on above: Community Monitoring Outreach (2nd attempt Telephonic Outreach [facility] Home Monitoring) Refill Request Start: 07-25-2023 ambulatory Marta Lui RN Work Phone: [facility] Comment on above: Community Monitoring Outreach (Telephonic Outreach [facility] Home Monitoring) Start: 07-18-2023 ambulatory Ovidio lara MD Work Phone: [facility] [place] Comment on above: handicap placard Start: 07-12-2023 End: 07-12-2023 Office outpatient visit 25 minutes Loretta Leon PA-C Work Phone: Pulmonary Medicine Comment on above: COPD with chronic br onchitis (Primary Dx); Lung nodules; Need for influenza vaccination; Former cigarette smoker Start: 06-27-2023 ambulatory Marta Lui RN Work Phone: [facility] Comment on above: Community Monitoring Outreach (Telephonic Outreach [facility] Home Monitoring) Start: 06-23-2023 Telephone encounter Ovidio Vincent MD Work Phone: [facility] [place] Comment on above: Pre-op order Start: 06-12-2023 End: 06-12-2023 Patient encounter procedure Ovidio Vincent MD Work Phone: [facility] Comment on above: Dysfunction of left eustachian tube (Primary Dx) Start: 06-05-2023 Telephone encounter Ovidio Vincent MD Work Phone: [facility] Comment on above: Medication Question Start: 06-02-2023 Chart abstracting Ovidio chou MD Work Phone: [facility] Comment on above: Outside Echo Start: 06-01-2023 Non-patient / Non-visit Dr. Connor Vincent Work Phone: [facility] Work Phone: Start: 05-29-2023 Non-patient / Non-visit [facility]. [facility] Start: 05-29-2023 End: 05-29-[address] Ovidio Vincent Work Phone: [facility] Work Phone: Start: 05-29-2023 End: 05-29-[address] Ovidio Vincent Work Phone: [facility] Work Phone: Start: 05-28-2023 ambulatory Ovidio lara MD Work Phone: [facility] Comment on above: [employer] Start: 05-26-2023 Chart abstracting [facility] Start: 05-25-2023 ambulatory Ovidio lara MD Work Phone: [facility] Comment on above: Enoxaprin Start: 05-25-2023 End: 05-25-2023 Patient encounter procedure Marni Gonzalez PA-C Work Phone: [facility] Comment on above: URI, acute (Primary Dx) Start: 05-19-2023 Refill Ovidio lara MD Work Phone: [facility] [place] Comment on above: Refill Request/[employer] Refill Request Start: 05-18-2023 ambulatory Yareli Soriano RN [facility] Comment on above: Community Monitoring Outreach (CDM Telephonic Outreach) Start: 05-02-2023 Chart abstracting Ovidio chou MD Work Phone: [facility] Comment on above: Outside Cardiology Start: 05-02-2023 End: 05-02-[address] Ovidio Vincent Work Phone: [facility] Work Phone: Start: 05-02-2023 End: 05-02-[address] Ovidio Vincent Work Phone: [facility] Work Phone: Start: 05-01-2023 Telephone encounter Ovidio Vincent MD Work Phone: [facility] Comment on above: Orders (Medication/) Start: 04-29-2023 Refill Hayde Ward MD Work Phone: Pulmonary Medicine Comment on above: Refill Request Start: 04-19-2023 ambulatory Marta Lui RN Work Phone: [facility] Comment on above: Community Monitoring Outreach (Telephonic Outreach CDM Home Monitoring) blood pressure Start: 04-13-2023 ambulatory Ovidio lara MD Work Phone: [facility] [place] Comment on above: Heart monitor Start: 04-05-2023 Telephone encounter Ramu Alanis MA [facility] Comment on above: Results Start: 04-03-2023 ambulatory Marta Lui RN Work Phone: [employer] [employer] [facility] Comment on above: Community Monitoring Outreach (Telephonic Outreach CDM Home Monitoring) Start: 04-02-2023 REFILL - BHARATHIT Heath Junior DO Work Phone: Medical Records Comment on above: Medication Refill Ap proved Start: 03-31-2023 Telephone encounter Leslye hogan PA-C Work Phone: [facility] Comment on above: Results Refill Request Start: 03-30-2023 End: 03-30-2023 Patient encounter procedure Leslye Winter PA-C Work Phone: [facility] Comment on above: Type 2 diabetes jolanta itus without complication, without long- term current use of insulin (HCC) (Primary Dx); Mixed hyperlipidemia; Atrial fibrillation, unspecified type (HCC); Multiple myeloma in remission (HCC); Multiple myeloma, remission status unspecified (HCC); Essential hypertension; Pulmonary hypertension, unspecified (HCC); Chronic obstructive pulmonary disease, unspecified COPD type (HCC); Acute thromboembolism of deep veins of both lower extremities (HCC); Inflammatory polyarthropathy (HCC); Type 2 diabetes mellitus with stage 3a chronic kidney disease, without long-term current use of insulin (HCC); Chronic renal failure, stage 3a ([facility]) Start: 03-30-[address] Can Vincent Work Phone: [facility] Work Phone: Start: 03-24-2023 Telephone encounter Ovidio Vincent MD Work Phone: [place] [facility] Comment on above: Results Start: 03-23-2023 Chart abstracting Ovidio chou MD Work Phone: [facility] Comment on above: ER Discharge Summary Start: 03-22-2023 Patient [facility] Start: 03-22-2023 End: 03-22-2023 Emergency department patient visit [facility] Work Phone: Start: 03-22-2023 End: 03-22-2023 Nursing evaluation of patient and report Mi Nurse Work Phone: [facility] Comment on above: Irregular heart beat (Primary Dx) Start: 03-22-2023 Telephone encounter Ovidio Vincent MD Work Phone: [facility] Comment on above: Patient Update Start: 03-20-2023 End: 03-20-2023 Patient encounter procedure Loretta Leon PA-C Work Phone: Pulmonary Medicine Comment on above: 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); Irregular heart beat; Lung nodules; Former cigarette smoker Start: 03-12-2023 ambulatory Ovidio lara MD Work Phone: [facility] Comment on above: Celebrex Start: 03-07-2023 End: 03-07-[address] Ovidio Vincent Work Phone: [facility] Work Phone: Start: 03-07-2023 End: 03-07-[address] Ovidio Vincent Work Phone: [facility] Work Phone: Start: 03-07-2023 [facility] Start: 03-06-2023 Refill Ovidio lara MD Work Phone: [facility] Comment on above: Refill Request Start: 02-28-2023 ambulatory Chanelle fowler ORTHOTIC TECHNICIAN.DOUGHNUT ICER MACHINE Work Phone: Pulmonary Medicine Start: 02-22-2023 Chart abstracting Ovidio chou MD Work Phone: [facility] Comment on above: ER F/U Start: 02-17-2023 ambulatory Ovidio lara MD Work Phone: [facility] Comment on above: leg swelling Start: 02-17-2023 End: 02-17-2023 Emergency department patient visit [facility] Start: 02-17-2023 End: 02-17-2023 Patient encounter procedure Ovidio Vincent MD Work Phone: [facility] Comment on above: Bilateral leg edema (Primary Dx) Start: 02-15-2023 [facility] Start: 02-14-2023 Chart abstracting Ovidio chou MD Work Phone: [facility] Start: 02-10-2023 End: 02-10-2023 Emergency department patient visit [facility] Start: 01-25-2023 ambulatory [facility] [place] Comment on above: Population Health Na vigation Outreach ([employer] Care Gaps) Start: 01-17-2023 ambulatory Mara Guardado RN Ambulato [facility] Care Management Comment on above: CDM (Telephonic outr each) Start: 01-16-2023 Patient Outreach Slime Sarmiento [facility] Comment on above: Transition Of Care Appointment Start: 01-12-2023 Chart abstracting Oviido chou MD Work Phone: [facility] Comment on above: ER F/U Start: 01-09-2023 Chart abstracting Ovidio chou MD Work Phone: [facility] Start: 01-05-2023 End: 01-14-2023 Evaluation and management of inpatient [facility] Start: 12-21-2022 ambulatory Mara Guardado RN Ambulato [facility] Care Management Comment on above: CDM (Telephonic outr each) Start: 12-19-2022 Telephone encounter Ovidio Vincent MD Work Phone: [facility] Comment on above: Results Start: 12-19-2022 End: 12-19-2022 Subsequent hospital visit by physician [facility] Work Phone: Radiology Comment on above: Ex-smoker [Z87.891] Start: 12-16-2022 Telephone encounter Ramu Alanis MA [facility] Comment on above: Appointment Start: 12-16-2022 End: 12-16-2022 Patient encounter procedure Ovidio Vincent MD Work Phone: [facility] Comment on above: Bilateral leg edema (Primary Dx); Essential hypertension; Type 2 diabetes mellitus without complication, without long-term current use of insulin (HCC); Ex-smoker; Encounter for abdominal aortic aneurysm (AAA) screening; Spinal stenosis, lumbar region, without neurogenic claudication; Weakness of both lower extremities; Increased weakness when ambulating; At high risk for falls; Vitamin D deficiency Start: 11-29-2022 ambulatory Rebecca Michel (Ps s) [facility] [place] Comment on above: Population Health Na vigation Outreach ([employer] Care Gaps) Start: 11-25-2022 ambulatory Mara Guardado RN Amb[facility]ato [facility] Care Management Comment on above: CDM (Telephonic outr each) Start: 11-24-2022 ambulatory Mara Guardado RN Amb[facility]ato [facility] Care Management Comment on above: CDM (Telephonic outr each) Start: 11-08-2022 Refill Ovidio lara MD Work Phone: [facility] [place] Comment on above: Refill Request Start: 11-07-2022 End: 11-07-2022 ambulatory Mitchel Jones MD Work Phone: Hematology/Oncology Comment on above: Multiple myeloma in remission (HCC) (Primary Dx) Start: 11-07-2022 End: 11-07-2022 Patient encounter procedure Mitchel Jones MD Work Phone: [facility] Start: 11-03-2022 End: 11-03-2022 Patient encounter procedure Ovidio Vincent MD Work Phone: [facility] [place] Comment on above: Bilateral leg edema (Primary Dx); Essential hypertension Start: 10-28-2022 End: 10-28-2022 Patient encounter procedure Hayde Ward MD Work Phone: Pulmonary Medicine Comment on above: 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); Lung nodules; Former cigarette smoker Start: 10-27-2022 ambulatory OVIDIO VINCENT Facili ty:[facility] Start: 10-27-2022 End: 10-27-2022 Subsequent hospital visit by physician [facility] Comment on above: Multiple myeloma in remission (HCC) [C90.01] Start: 10-24-2022 Refill Ovidio lara MD Work Phone: [facility] [place] Comment on above: Refill Request Start: 10-21-2022 Orders Only Heath Mccabe Work Phone: Hematology/Oncology Comment on above: Multiple myeloma in remission (HCC) (Primary Dx); H/O autologous stem cell transplant (HCC) Medication Request Start: 10-13-2022 ambulatory Ramu Annabelle BLANTON [facility] [place] Comment on above: Eye Doctor Start: 10-13-2022 E-mail encounter jason lynch caregiver Ramu Alanis MA [facility] Start: 10-13-2022 Telephone encounter Ramu Alanis FRANNY [facility] [place] Comment on above: Patient Update Results Start: 10-05-2022 Telephone encounter Ovidio Vincent MD Work Phone: [facility] [place] Comment on above: Results Start: 10-03-2022 End: 10-03-2022 Subsequent hospital visit by physician Melanie [facility] [place] Work Phone: Radiology Comment on above: Spinal stenosis, lum bar region, without neurogenic claudication [M48.061] Start: 09-30-2022 ambulatory No Pcp Grover Kessler [employer] Start: 09-30-2022 Telephone encounter Ramu Annabelle BLANTON [facility] [place] Comment on above: Appointment (Appoint ment with Dr. Head ) Start: 09-30-2022 End: 09-30-2022 Ophthalmic examination and evaluation Ovidio Vincent MD Work Phone: [facility] [place] Start: 09-30-2022 End: 09-30-2022 Patient encounter procedure Ovidio Vincent MD Work Phone: [facility] Work Phone: Comment on above: Medicare [facility], subsequent (Primary Dx); Type 2 diabetes mellitus without complication, without long-term current use of insulin (HCC); Diabetic eye exam (HCC); Essential hypertension; Mixed hyperlipidemia; Chronic obstructive pulmonary disease, unspecified COPD type (HCC); Pulmonary hypertension, unspecified (HCC); Peripheral autonomic neuropathy in disorders classified elsewhere; Multiple myeloma in remission (HCC); Multiple myeloma, remission status unspecified (HCC); 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); 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HCC); Gastroesophageal reflux disease, unspecified whether esophagitis present; Obesity, Class I, BMI 30-34.9; Low serum vitamin B12; Hypomagnesemia; Inflammatory polyarthropathy (HCC); Spinal stenosis, lumbar region, without neurogenic claudication; Living will on file at physician's office; Advance directive discussed with patient; Screening for colon cancer; Foot callus; Prostate disorder; Medication management; Bilateral leg edema Start: 09-21-2022 ambulatory Nargis alonso RN Work Phone: [employer] [facility] Comment on above: Community Monitoring Outreach (CDM) Start: 09-19-2022 Refill Ovidio lara MD Work Phone: [facility] Comment on above: Refill Request Start: 09-12-2022 Refill Leslye Nevarez on PA-C Work Phone: [facility] Comment on above: Refill Request Start: 09-05-2022 Refill Hayde Ward MD Work Phone: Pulmonary Medicine Comment on above: Refill Request Start: 08-30-2022 Telephone encounter Hayde Ward MD Work Phone: Pulmonary Medicine Comment on above: Orders (CXR order) Start: 08-30-2022 End: 08-30-2022 ambulatory [facility] Work Phone: Start: 08-30-2022 End: 08-30-2022 Patient encounter procedure [facility] Start: 08-29-2022 Refill Hayde Ward MD Work Phone: Pulmonary Medicine Comment on above: Refill Request Start: 08-24-2022 ambulatory Nargis alonso RN Work Phone: [facility] Start: 08-24-2022 Follow-up encounter Nargis Ortega RN Work Phone: [employer] [facility] Comment on above: Community Monitoring Outreach (CDM Follow Up) Start: 08-23-2022 ambulatory Nargis alonso RN Work Phone: [facility] Start: 08-23-2022 Follow-up encounter Nargis Ortega RN Work Phone: [facility] [employer] [facility] Comment on above: Community Monitoring Outreach (CDM Follow Up) Start: 08-08-2022 End: 08-08-2022 Patient encounter procedure Hayde Ward MD Work Phone: Pulmonary Medicine Comment on above: Simple chronic bronc hitis (HCC) (Primary Dx); Former cigarette smoker; Post-nasal drip Start: 07-28-2022 Refill Ela Alvarez MD Work Phone: Hematology/Oncology Comment on above: Refill Request Start: 07-04-2022 End: 07-04-2022 Patient encounter procedure Ovidio Vincent MD Work Phone: [facility] [place] Comment on above: Inflammatory polyart hropathy (HCC) (Primary Dx); Encounter for immunization; ED (erectile dysfunction) of organic origin Start: 07-03-2022 Refill Ela Alvarez MD Work Phone: Hematology/Oncology Comment on above: Refill Request Start: 06-29-2022 ambulatory Nargis alonso RN Work Phone: [employer] [facility] Comment on above: Community Monitoring Outreach (CDM Telephonic) Start: 06-28-2022 ambulatory Nargis alonso RN Work Phone: [employer] [facility] Comment on above: Community Monitoring Outreach (CDM Telephonic ) Start: 06-17-2022 ambulatory Ovidio lara MD Work Phone: [facility] [place] Comment on above: medications Start: 06-09-2022 Refill Ovidio lara MD Work Phone: [facility] [place] Comment on above: Refill Request Start: 06-08-2022 Refill Leslye Nevarez on PA-C Work Phone: [facility] [place] Comment on above: Refill Request Start: 06-02-2022 End: 06-02-2022 Patient encounter procedure Franco Zuñiga MD Work Phone: Orthopaedics Comment on above: Ganglion cyst (Prima ry Dx) Start: 05-31-2022 ambulatory Nargis alonso RN Work Phone: [employer] [facility] Comment on above: Community Monitoring Outreach (CDM Telephonic) Start: 05-11-2022 ambulatory Nargis alonso RN Work Phone: [facility] Start: 05-11-2022 Follow-up encounter Nargis Ortega RN Work Phone: [employer] [facility] Comment on above: Community Monitoring Outreach (CDM Telephonic Follow Up) Start: 05-02-2022 ambulatory Ela Alvarez MD Work Phone: Hematology/Oncology Comment on above: bone survey Start: 04-28-2022 End: 04-28-2022 Patient encounter procedure Franco Zuñiga MD Work Phone: Orthopaedics Comment on above: Swelling of left figueroa d (Primary Dx); Ganglion cyst Start: 04-26-2022 End: 04-26-2022 ambulatory Ela Alvarez MD Work Phone: Hematology/Oncology Comment on above: Multiple myeloma in remission (HCC) (Primary Dx); H/O autologous stem cell transplant (HCC) Start: 04-26-2022 End: 04-26-2022 Patient encounter procedure Ela Alvarez MD Work Phone: [facility] Start: 04-25-2022 Refill Leslye Nevarez on PA-C Work Phone: [facility] [place] Comment on above: Refill Request Swelling Start: 04-19-2022 Telephone encounter Leslye hogan PA-C Work Phone: [facility] Comment on above: Results Start: 04-18-2022 End: 04-18-2022 Patient encounter procedure Mary Lopez PA-C Work Phone: Orthopaedics Comment on above: Swelling of left figueroa d (Primary Dx); Ganglion cyst; Dupuytren's contracture Start: 04-18-2022 End: 04-18-2022 Subsequent hospital visit by physician Melanie [facility] [place] Work Phone: Radiology Comment on above: Pain of left hand [M 79.642] Start: 04-07-2022 Telephone encounter Franco kong MD Work Phone: Orthopaedics Comment on above: OT needed? Start: 04-05-2022 Refill Ela Alvarez MD Work Phone: Hematology/Oncology Comment on above: Refill Request Start: 03-29-2022 Telephone encounter Franco kong MD Work Phone: Orthopaedics Comment on above: Schedule Surgery Start: 03-28-2022 End: 03-28-2022 Patient encounter procedure Franco Zuñiga MD Work Phone: Orthopaedics Comment on above: Dupuytren's disease of palm (Primary Dx); Ganglion cyst; Pain in finger of right hand; Left hand pain Start: 03-27-2022 Refill Leslye li PA-C Work Phone: [facility] Comment on above: Refill Request Start: 03-22-2022 End: 03-22-2022 Patient encounter procedure Leslye Winter PA-Smart Panel Work Phone: [facility] [place] Comment on above: Type 2 diabetes jolanta itus without complication, without long- term current use of insulin (HCC) (Primary Dx); Mixed hyperlipidemia; Essential hypertension; Chronic obstructive pulmonary disease, unspecified COPD type (HCC); Pulmonary hypertension, unspecified (HCC); Multiple myeloma in remission (HCC); 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HCC); 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); Gastroesophageal reflux disease, unspecified whether esophagitis present; Peripheral autonomic neuropathy in disorders classified elsewhere; Inflammatory polyarthropathy (HCC); Hypomagnesemia; Low serum vitamin B12; Ganglion cyst Start: 03-17-2022 Refill Ovidio lara MD Work Phone: [facility] [place] Comment on above: Refill Request Start: 03-16-2022 ambulatory Nargis alonso RN Work Phone: [facility] Start: 03-16-2022 Follow-up encounter Nargis Ortega RN Work Phone: [employer] [facility] Comment on above: Community Monitoring Outreach (Telephonic Follow Up) Start: 01-25-2022 ambulatory Loretta Cummins PA-C Work Phone: Pulmonary Medicine Comment on above: AMOX-CLAV Start: 01-24-2022 ambulatory Nargis alonso RN Work Phone: [facility] Start: 01-24-2022 Follow-up encounter Nargis Ortega RN Work Phone: [employer] [facility] Comment on above: Community Monitoring Outreach (Telephonic Follow Up) Start: 01-20-2022 End: 01-20-2022 Patient encounter procedure Loretta Leon PA-C Work Phone: Pulmonary Medicine Comment on above: 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); Cough; Non-seasonal allergic rhinitis, unspecified trigger; Pulmonary arterial hypertension (HCC); Acute bronchitis, unspecified organism; Former smoker Start: 01-16-2022 Refill Esvin cavazos Work Phone: Podiatry Comment on above: Refill Request Start: 01-08-2022 Refill Esvin Testra cavazos Work Phone: Podiatry Comment on above: Refill Request Start: 01-06-2022 Refill Leslye Nevarez on PA-C Work Phone: [facility] [place] Comment on above: Refill Request Start: 12-28-2021 End: 12-28-2021 Patient encounter procedure [facility] Start: 12-27-2021 ambulatory Nargis alonso flower buncher or pickerLaundry Tub Maker Management Comment on above: Community Monitoring Outreach (CDM Telephonic) Start: 10-19-2021 End: 10-19-2021 Discharged Recurring [facility] Start: 10-14-2021 End: 10-14-2021 Patient encounter procedure [facility] Start: 10-06-2021 Ophthalmic examinati on and evaluation Nargis Ortega RN [facility] Work Phone: Start: 10-06-2021 Patient encounter procedure Nargis Ortega RN [facility] Work Phone: Procedures Date Procedure Procedure Detail Performing Clinician Start: 12-27-2024 Mri spinal canal tho racic w/o contrast matrl [facility] Provider Start: 12-05-2024 X-ray of lumbosacral spine Dr. Ovidio Vincent MD Work Phone: Start: 05-30-2024 Adult depression scr eening assessment Ovidio Vincent MD Work Phone: Start: 05-29-2024 Mri brain brain stem w/o contrast material Ovidio Vincent MD Work Phone: Start: 03-26-2024 [facility] medical xm&kelly l intermediate estab pt [facility] Provider Start: 08-04-2023 Hemoglobin A1c/Hemoglobin.total in Blood [facility] Provider Start: 07-12-2023 INFLUENZA VACCINE, P RSV FREE, AGE 65+ YR, HIGH DOSE, QUADRIVALENT (FLUZONE HIGH-DOSE) Loretta Leon PAAndriyC Work Phone: Start: 03-22-2023 Ecg routine ecg w/le ast 12 lds i&r only [facility] Provider Start: 02-10-2023 Plain chest X-ray Start: 01-09-2023 Viral antigen assay Start: 12-19-2022 Us abdominal aorta r eal time screen study aaa Ovidio Vincent MD Work Phone: Start: 10-03-2022 Radex spine lumbosac ral minimum 4 views Ovidio Vincent MD Work Phone: Start: 08-30-2022 CT of chest Start: 07-04-2022 [facility] COVI D-19 BIVALENT BOOSTER VACCINE, AGE 12+ YR Ovidio Vincent MD Work Phone: Start: 04-23-2022 Adult depression scr eening assessment Leslye Winter PA-C Work Phone: Start: 04-18-2022 Radex hand minimum 3 views Mary Lopez PA-C Work Phone: Start: 07-10-2021 Adult depression scr eening assessment Nargis Ortega RN Start: 09-25-2012 Colonoscopy Nargis goldstein RN Plan of Treatment Date Care Activity Detail Author Start: 09-23-2029 Urine microalbumin profile [facility] Start: 11-18-2025 Annual PCP Team Chronic Disease Visit Annual PCP Team Chronic Disease Visit [facility] Start: 11-18-2025 BP Controlled (<130/80) BP Controlled (<130/80) [facility] Start: 11-18-2025 Hepatitis B surface antibody level LDL Cholesterol [facility] Start: 11-04-2025 Creatinine measurement Serum Creatinine [facility] Start: 08-01-2025 Creatinine measurement Serum Creatinine [facility] Start: 07-02-2025 Diabetic foot examination Diabetic Foot Exam [facility] Start: 06-09-2025 End: 06-09-2025 Patient encounter procedure [facility] [place] Comment on above: Medicare Wellness Start: 05-30-2025 Annual PCP Team Chronic Disease Visit Annual PCP Team Chronic Disease Visit [facility] Start: 05-30-2025 Anxiety Screening Anxiety Screening [facility] Start: 05-30-2025 BP Controlled (<130/80) BP Controlled (<130/80) [facility] Start: 05-30-2025 Covid-19 Vaccine ( season) Covid-19 Vaccine ( season) [facility] Comment on above: Postponed from 05/19/2024 (Currently [facility] ed[facility]) Start: 05-30-2025 Covid-19 Vaccine ( season) Covid-19 Vaccine ( season) [facility] Comment on above: Postponed from 05/19/2024 (Currently [facility] eduled) Start: 05-30-2025 Depression Screening Depression Screening [facility] Start: 05-30-2025 Diabetic foot examination Diabetic Foot Exam [facility] Start: 05-30-2025 RSV Vaccine (1 - 1-dose 60+ series) RSV Vaccine (1 - 1-dose 60+ series) [facility] Comment on above: Postponed from 2011 (Insurance Cov erage) Start: 05-30-2025 RSV Vaccine (1 - Risk 60-74 years 1-dose series) RSV Vaccine (1 - Risk 60-74 years 1-dose series) [facility] Comment on above: Postponed from 2011 (Insurance [facility]) Start: 05-27-2025 Annual PCP Team Chronic Disease Visit Annual PCP Team Chronic Disease Visit [facility] Start: 05-27-2025 BP Controlled (<130/80) BP Controlled (<130/80) [facility] Start: 05-21-2025 Hemoglobin A1c measurement HbA1C [facility] Start: 05-03-2025 BP Controlled (<130/80) BP Controlled (<130/80) [facility] Start: 04-26-2025 Creatinine measurement Serum Creatinine [facility] Start: 04-18-2025 End: 04-18-2025 Patient encounter procedure 04/18/2025 1:00 PM EDT Office Visit Podiatry [address] [place] [id number] Esvin Marcus [address] [place] [id number] 3 mo follow up Podiatry Comment on above: 3 mo follow up Start: 04-16-2025 Annual PCP Team Chronic Disease Visit Annual PCP Team Chronic Disease Visit [facility] Start: 04-16-2025 Creatinine measurement Serum Creatinine [facility] Start: 04-16-2025 Hepatitis B screening Urine Albumin:Creatinine Ratio [facility] Start: 04-16-2025 Hepatitis B surface antibody level LDL Cholesterol [facility] Start: 03-31-2025 End: 03-31-2025 Patient encounter procedure Pulmonary Medicine Comment on above: [facility] PT DOES NOT WANT KENNEDI NER APPT- [facility] Start: 03-26-2025 Glaucoma screening Dilated Retinal Exam [facility] Start: 03-24-2025 End: 03-24-2025 ambulatory Hematology/Oncology Comment on above: 4 MO OV/LABS 03/14* Start: 03-17-2025 Influenza vaccination Influenza Vaccine (#1) [facility] Comment on above: Postponed from 05/19/2024 ([facility] Start: 03-14-2025 End: 03-14-2025 ambulatory 03/14/2025 8:15 AM EDT Results Only [facility] Laboratory [address] [place] [id number] (SO)CBC/BMP/MONOCLONAL PROTEIN/KAPPA* [facility] Comment on above: (SO)CBC/BMP/MONOCLONAL PROTEIN/KAPPA* Start: 03-11-2025 ambulatory Ambulatory Facility[facility] Start: 03-04-2025 ambulatory Ambulatory Facility[facility] Start: 02-26-2025 ambulatory Ambulatory Facility[facility] Start: 01-02-2025 Annual PCP Team Chronic Disease Visit Annual PCP Team Chronic Disease Visit [facility] Start: 01-02-2025 BP Controlled (<130/80) BP Controlled (<130/80) [facility] Start: 01-01-2025 Creatinine measurement Serum Creatinine [facility] Start: 12-30-2024 Covid-19 Vaccine (7 - Moderna risk ) Covid-19 Vaccine (7 - Moderna risk ) [facility] Start: 12-27-2024 End: 12-27-2024 Patient encounter procedure Radiology Comment on above: Arthrodesis status Other Spondylosis wi th myelopathy, thoracic region Start: 12-20-2024 End: 12-20-2024 Patient encounter procedure Podiatry Comment on above: Diabetic Nail Care Start: 11-26-2024 BP Controlled (<130/80) BP Controlled (<130/80) [facility] Start: 11-25-2024 End: 11-25-2024 Patient encounter procedure 11/25/2024 10:00 AM EDT Office Visit Pulmonary Medicine [address], [place] [phone] Hayde Ward MD [address] [place], [place] [phone] 6 month follow up Pulmonary Medicine Comment on above: 6 month follow up Start: 11-18-2024 End: 11-18-2024 Patient encounter procedure 11/18/2024 7:40 AM EST Office Visit [facility] [place] [address] [place], [place] [phone] Rebecca Jansen APRN.DOUGHNUT ICER MACHINE [address] [place], [place] [id number] 6 month follow up [facility] [place] Comment on above: 6 month follow up Start: 11-15-2024 End: 02-14-2025 Hemoglobin A1c in Blood HEMOGLOBIN A1C Lab Routine Type 2 diabetes mellitus without complication, without long-term current use of insulin (HCC) Expected: 11/15/2024, Expires: 02/14/2025 [facility] Comment on above: Expected: 11/15/2024, Expires: Start: 11-15-2024 End: 02-14-2025 LIPID PANEL, NONFASTING LIPID PANEL, NONFASTING Lab Routine Type 2 diabetes mellitus without complication, without long-term current use of insulin (HCC) Essential hypertension Mixed hyperlipidemia Bilateral carotid artery stenosis Expected: 11/15/2024, Expires: 02/14/2025 [facility] Comment on above: Expected: 11/15/2024, Expires: Start: 11-15-2024 End: 11-15-2024 ambulatory 11/15/2024 8:15 AM EST Results Only [facility] [place] [address] [place] [address] [facility] Start: 11-12-2024 End: 11-12-2024 Follow-up encounter 11/12/2024 8:[address] [facility] Hematology/Oncology [address] [place] [address] [place] [address] [place] [address] 6 MO FOLLOW UP/LABS 11/12* Hematology/Oncology Comment on above: 6 MO FOLLOW UP/LABS 11/12* Start: 11-04-2024 End: 11-04-2024 ambulatory 11/04/2024 8:00 AM EST Results Only [facility] [place] [facility] Laboratory [address] [place] [address] LAB* [facility] Comment on above: LAB* Start: 10-27-2024 Creatinine measurement Serum Creatinine [facility] Start: 10-17-2024 Hemoglobin A1c measurement HbA1C [facility] Start: 10-17-2024 Screening for malignant neoplasm of colon [facility] Start: 10-10-2024 Annual PCP Team Chronic Disease Visit Annual PCP Team Chronic Disease Visit [facility] Start: 10-10-2024 Hepatitis B screening Urine Albumin:Creatinine Ratio [facility] Start: 10-10-2024 Hepatitis B surface antibody level LDL Cholesterol [facility] Start: 09-22-2024 Glaucoma screening Dilated Retinal Exam [facility] Start: 09-18-2024 Advance Directive Discussion Advance Directive Discussion [facility] Start: 09-14-2024 Glaucoma screening Dilated Retinal Exam [facility] Start: 09-04-2024 Annual PCP Team Chronic Disease Visit Annual PCP Team Chronic Disease Visit [facility] Start: 08-26-2024 Covid-19 Vaccine () Covid-19 Vaccine () [facility] Start: 08-01-2024 Annual PCP Team Chronic Disease Visit Annual PCP Team Chronic Disease Visit [facility] Start: 08-01-2024 Creatinine measurement Serum Creatinine [facility] Start: 08-01-2024 Serum Creatinine Serum Creatinine [facility] Start: 07-31-2024 Influenza vaccination Lung Cancer Screening [facility] Start: 07-31-2024 Screening for malignant neoplasm of lung Lung Cancer Screening [facility] Start: 07-18-2024 End: 07-18-2024 Patient encounter procedure 07/18/2024 8:00 AM EDT Office Visit Vasculary Surgery [address] [place] [address] PAD (peripheral artery disease) (HCC) [I73.9] [facility] Comment on above: PAD (peripheral artery disease) (HCC) [I 73.9] Start: 07-11-2024 End: 07-11-2024 Patient encounter procedure 07/11/2024 10:00 AM EDT Office Visit Infectious Disease [address] [place] [address] Yun Kasper MD [address] [place] [address] Pyogenic arthritis of right elbow, due to unspecified organism (HCC) [M00.9] Infectious Disease Comment on above: Pyogenic arthritis of right elbow, due t o unspecified organism (HCC) [M00.9] Start: 07-02-2024 End: 07-02-2024 Patient encounter procedure 07/02/2024 8:30 AM EDT Office Visit Podiatry [address] [place], [place] [id number] Esvin Marcus [address] [place] [id number] Type 2 diabetes mellitus without complication, without long-term current use of insulin (HCC) [E11.9]; Foot callus [L84] Podiatry Comment on above: Type 2 diabetes mellitus without complic ation, without long-term current use of insulin (HCC) [E11.9]; Foot callus [L84] Start: 06-28-2024 End: 09-27-2024 CBC W Auto Differential panel - Blood COMPLETE BLOOD COUNT AND DIFFERENTIAL Lab Routine Low serum iron Expected: 06/28/2024, Expires: 09/27/2024 [facility] Comment on above: Expected: 06/28/2024, Expires: Start: 06-28-2024 End: 09-27-2024 Ferritin [Mass/volume] in Serum or Plasma FERRITIN Lab Routine Low serum iron Expected: 06/28/2024, Expires: 09/27/2024 [facility] Comment on above: Expected: 06/28/2024, Expires: Start: 06-28-2024 End: 09-27-2024 Iron and Iron binding capacity panel - Serum or Plasma IRON AND TIBC Lab Routine Low serum iron Expected: 06/28/2024, Expires: 09/27/2024 [facility] Work Phone: Comment on above: Expected: 06/28/2024, Expires: Start: 06-26-2024 End: 09-25-2024 C reactive protein [Mass/volume] in Serum or Plasma C-REACTIVE PROTEIN Lab Routine Pseudogout Expected: 06/26/2024, Expires: 09/25/2024 [facility] Work Phone: Comment on above: Expected: 06/26/2024, Expires: 5 Start: 06-12-2024 Annual PCP Team Chronic Disease Visit Annual PCP Team Chronic Disease Visit [facility] Start: 06-12-2024 BP Controlled (<130/80) BP Controlled (<130/80) [facility] in Start: 05-30-2024 End: 05-30-2024 Patient encounter procedure 05/30/2024 9:20 AM EDT Office Visit Family Medicine [place] [address] [place], [place] [id number] Ovidio Vincent MD [address] [place] [address] Medicare wellness [facility] [place] Comment on above: Medicare wellness Start: 05-29-2024 End: 05-29-2024 Patient encounter procedure Vascul[facility] Comment on above: Vertigo [R42] Start: 05-27-2024 End: 08-26-2024 C reactive protein [Mass/volume] in Serum or Plasma [facility] Comment on above: Expected: 05/27/2024, Expires: 4 Start: 05-27-2024 End: 08-26-2024 CBC W Auto Differential panel - Blood [facility] Work Phone: Comment on above: Expected: 05/27/2024, Expires: 4 Start: 05-27-2024 End: 08-26-2024 Cobalamin (Vitamin B12) [Mass/volume] in Serum or Plasma [facility] Comment on above: Expected: 05/27/2024, Expires: 4 Start: 05-27-2024 End: 08-26-2024 Creatine kinase [Enzymatic activity/volume] in Serum or Plasma [facility] Comment on above: Expected: 05/27/2024, Expires: 4 Start: 05-27-2024 End: 08-26-2024 Ferritin [Mass/volume] in Serum or Plasma [facility] Comment on above: Expected: 05/27/2024, Expires: 4 Start: 05-27-2024 End: 08-26-2024 Folate [Mass/volume] in Serum or Plasma [facility] Comment on above: Expected: 05/27/2024, Expires: Start: 05-27-2024 End: 08-26-2024 Iron and Iron binding capacity panel - Serum or Plasma [facility] Comment on above: Expected: 05/27/2024, Expires: 4 Start: 05-27-2024 End: 05-27-2024 Patient encounter procedure 05/27/2024 10:00 AM EDT Office Visit Pulmonary Medicine [address] [place] [address] Hayde Ward MD [address] [place], [place] [id number] 6 month follow up Pulmonary Medicine Comment on above: 6 month follow up Start: 05-19-2024 Covid-19 Vaccine () Covid-19 Vaccine () [facility] Start: 05-19-2024 Influenza vaccination Influenza Vaccine (#1) [facility] Start: 05-03-2024 BP CONTROLLED (<130/80) BP CONTROLLED (<130/80) [facility] Start: 05-03-2024 End: 05-03-2024 ambulatory 05/03/2024 10:10 AM EDT Visit (SP) Office Hematology/Oncology [address] [place], [place] [address] [place] [address] [place] [address] 6 MO OV/LAB 04/26* Hematology/Oncology Comment on above: 6 MO OV/LAB 04/26* Start: 04-26-2024 End: 04-26-2024 ambulatory [facility] Comment on above: LAB* Start: 04-24-2024 SERUM CREATININE SERUM CREATININE [facility] Start: 04-16-2024 End: 07-16-2024 25-hydroxyvitamin D3 [Mass/volume] in Serum or Plasma [facility] Comment on above: Expected: 04/16/2024, Expires: Start: 04-16-2024 End: 07-16-2024 CBC W Auto Differential panel - Blood [facility] Comment on above: Expected: 04/16/2024, Expires: Start: 04-16-2024 End: 07-16-2024 Cobalamin (Vitamin B12) [Mass/volume] in Serum or Plasma [facility] Comment on above: Expected: 04/16/2024, Expires: Start: 04-16-2024 End: 07-16-2024 Comprehensive metabolic 2000 panel - Serum or Plasma [facility] Comment on above: Expected: 04/16/2024, Expires: Start: 04-16-2024 End: 07-16-2024 Hemoglobin A1c in Blood [facility] Comment on above: Expected: 04/16/2024, Expires: Start: 04-16-2024 End: 07-16-2024 LIPID PANEL, NONFASTING [facility] Comment on above: Expected: 04/16/2024, Expires: Start: 04-16-2024 End: 07-16-2024 Magnesium [Mass/volume] in Serum or Plasma [facility] Comment on above: Expected: 04/16/2024, Expires: Start: 04-16-2024 End: 07-16-2024 Microalbumin/Creatinine [Mass Ratio] in Urine [facility] Comment on above: Expected: 04/16/2024, Expires: Start: 04-16-2024 End: 07-16-2024 Prostate specific Ag [Mass/volume] in Serum or Plasma [facility] Comment on above: Expected: 04/16/2024, Expires: Start: 04-16-2024 End: 07-16-2024 Urinalysis complete panel - Urine [facility] Comment on above: Expected: 04/16/2024, Expires: Start: 04-16-2024 End: 04-16-2024 Patient encounter procedure 04/16/2024 8:00 AM EDT Office Visit Family Medicine [place] [address] [place] [address] Ovidio Vincent MD [address] [place] [address] Medicare Wellness [facility] Comment on above: Medicare Wellness Start: 04-09-2024 Hemoglobin A1c measurement HbA1C [facility] Start: 03-30-2024 ANNUAL PCP TEAM CHRONIC DISEASE VISIT ANNUAL PCP TEAM CHRONIC DISEASE VISIT [facility] Start: 03-30-2024 Hepatitis B surface antibody level LDL CHOLESTEROL [facility] Start: 03-24-2024 SERUM CREATININE SERUM CREATININE [facility] Start: 02-25-2024 ANNUAL PCP TEAM CHRONIC DISEASE VISIT ANNUAL PCP TEAM CHRONIC DISEASE VISIT [facility] Start: 02-18-2024 ANNUAL PCP TEAM CHRONIC DISEASE VISIT ANNUAL PCP TEAM CHRONIC DISEASE VISIT [facility] Start: 02-02-2024 Hemoglobin A1c measurement HbA1C [facility] Start: 02-02-2024 Hemoglobin A1c/Hemoglobin.total in Blood HbA1C [facility] Start: 12-26-2023 End: 03-26-2024 Basic metabolic 2000 panel - Serum or Plasma BASIC METABOLIC PNL Lab Routine Pre-op evaluation Type 2 diabetes mellitus with stage 3a chronic kidney disease, without long-term current use of insulin (HCC) Essential hypertension Expected: 12/26/2023, Expires: 03/26/2024 [facility] Work Phone: Comment on above: Expected: 12/26/2023, Expires: 4 Start: 12-26-2023 End: 03-26-2024 CBC W Auto Differential panel - Blood CBC + DIFF Lab Routine Pre-op evaluation Type 2 diabetes mellitus with stage 3a chronic kidney disease, without long-term current use of insulin (HCC) Expected: 12/26/2023, Expires: 03/26/2024 [facility] Work Phone: Comment on above: Expected: 12/26/2023, Expires: 4 Start: 12-17-2023 ANNUAL PCP TEAM CHRONIC DISEASE VISIT ANNUAL PCP TEAM CHRONIC DISEASE VISIT [facility] Start: 12-17-2023 BP CONTROLLED (<130/80) BP CONTROLLED (<130/80) [facility] Start: 11-03-2023 ANNUAL PCP TEAM CHRONIC DISEASE VISIT ANNUAL PCP TEAM CHRONIC DISEASE VISIT [facility] Start: 10-12-2023 COLORECTAL CANCER SCREENING COLORECTAL CANCER SCREENING [facility] Start: 10-12-2023 FECAL OCCULT BLOOD FECAL OCCULT BLOOD [facility] Start: 10-12-2023 Hepatitis B screening URINE ALBUMIN:CREATININE RATIO [facility] Start: 10-12-2023 Hepatitis B surface antibody level LDL CHOLESTEROL [facility] Start: 10-12-2023 Screening for malignant neoplasm of colon [facility] Start: 09-30-2023 3 comp foot exam completed DIABETIC FOOT EXAM [facility] Start: 09-30-2023 ANNUAL PCP TEAM CHRONIC DISEASE VISIT ANNUAL PCP TEAM CHRONIC DISEASE VISIT [facility] Start: 09-30-2023 Diabetic foot examination Diabetic Foot Exam [facility] Start: 09-30-2023 Hemoglobin A1c/Hemoglobin.total in Blood HBA1C [facility] Start: 09-18-2023 Advance Directive Discussion Advance Directive Discussion [facility] Start: 09-18-2023 Behavioral Health Screening Behavioral Health Screening [facility] Start: 09-18-2023 Depression Assessment Depression Assessment [facility] Start: 08-30-2023 Influenza vaccination LUNG CANCER SCREENING [facility] Start: 08-17-2023 Evaluation of diagnostic study results [facility] Start: 08-01-2023 End: 10-31-2023 Comprehensive metabolic 2000 panel - Serum or Plasma [facility] Work Phone: Comment on above: Expected: 08/01/2023, Expires: Start: 07-04-2023 ANNUAL PCP TEAM CHRONIC DISEASE VISIT ANNUAL PCP TEAM CHRONIC DISEASE VISIT [facility] Start: 05-19-2023 Covid-19 Vaccine ( season) Covid-19 Vaccine () [facility] Start: 05-19-2023 Influenza vaccination [facility] Start: 05-07-2023 End: 07-07-2023 CBC W Auto Differential panel - Blood CBC + DIFF Lab Routine Multiple myeloma in remission (HCC) Expected: 05/07/2023, Expires: 07/07/2023 [facility] Work Phone: Comment on above: Expected: 05/07/2023, Expires: 3 Start: 05-07-2023 End: 07-07-2023 Comprehensive metabolic 2000 panel - Serum or Plasma COMP METABOLIC PANEL Lab Routine Multiple myeloma in remission (HCC) Expected: 05/07/2023, Expires: 07/07/2023 [facility] Work Phone: Comment on above: Expected: 05/07/2023, Expires: 3 Start: 05-07-2023 End: 07-07-2023 IMMUNOFIXATION SCREEN, SERUM IMMUNOFIXATION SCREEN, SERUM Lab Routine Multiple myeloma in remission (HCC) Expected: 05/07/2023, Expires: 07/07/2023 [facility] Work Phone: Comment on above: Expected: 05/07/2023, Expires: 3 Start: 05-07-2023 End: 07-07-2023 KAPPA/PHAN,FREE,SER KAPPA/PHAN,FREE,SER Lab Routine Multiple myeloma in remission (HCC) Expected: 05/07/2023, Expires: 07/07/2023 [facility] Work Phone: Comment on above: Expected: 05/07/2023, Expires: 3 Start: 04-23-2023 Adult depression screening assessment DEPRESSION SCREENING [facility] Start: 04-18-2023 Hepatitis B surface antibody level LDL CHOLESTEROL [facility] Start: 04-11-2023 Hemoglobin A1c/Hemoglobin.total in Blood HBA1C [facility] Start: 03-30-2023 End: 05-30-2023 LIPID PANEL, NONFASTING [facility] Work Phone: Comment on above: Expected: 03/30/2023, Expires: 3 Start: 03-22-2023 ANNUAL PCP TEAM CHRONIC DISEASE VISIT ANNUAL PCP TEAM CHRONIC DISEASE VISIT [facility] Start: 03-07-2023 End: 11-27-2023 Ct thorax w/o contrast material CT CHEST WO IVCON Radiology Routine Lung nodules Expected: 03/07/2023, Expires: 11/27/2023 [facility] Work Phone: Comment on above: Expected: 03/07/2023, Expires: 4 Start: 02-10-2023 [facility] Start: 02-03-2023 Blood chemistry [facility] Start: 01-27-2023 Blood chemistry [facility] Start: 01-20-2023 Blood chemistry [facility] Start: 01-16-2023 Development of care plan [facility] Start: 01-14-2023 Patient discharge [facility] Start: 01-06-2023 [facility] Start: 01-06-2023 Development of care plan [facility] Start: 01-06-2023 Developing a treatment plan [facility] Start: 01-05-2023 Provision of activity privileges [facility] Start: 01-05-2023 Wound care [facility] Start: 01-05-2023 End: 01-05-2023 [facility] Start: 01-05-2023 Admission procedure [facility] Start: 01-05-2023 Measuring intake and output [facility] Start: 01-05-2023 Patient referral to dietitian [facility] Start: 01-05-2023 Referral to occupational therapist [facility] Start: 01-05-2023 Referral to service [facility] Start: 01-05-2023 Vital signs measurements [facility] Start: 01-05-2023 Patient referral to dietitian [facility] Start: 11-03-2022 End: 01-03-2023 Basic metabolic 2000 panel - Serum or Plasma BASIC METABOLIC PNL Lab Routine Bilateral leg edema Essential hypertension Expected: 11/03/2022, Expires: 01/03/2023 [facility] Work Phone: Comment on above: Expected: 11/03/2022, Expires: 3 Start: 10-24-2022 End: 12-24-2022 [id number] [Mass/volume] in Serum or Plasma B2 MICROGLOBULIN B Lab Routine Multiple myeloma in remission (HCC) H/O autologous stem cell transplant (HCC) Expected: 10/24/2022, Expires: 12/24/2022 [facility] Work Phone: Comment on above: Expected: 10/24/2022, Expires: 3 Start: 10-24-2022 End: 12-24-2022 CBC W Auto Differential panel - Blood CBC + DIFF Lab STAT Multiple myeloma in remission (HCC) H/O autologous stem cell transplant (HCC) Expected: 10/24/2022, Expires: 12/24/2022 [facility] Work Phone: Comment on above: Expected: 10/24/2022, Expires: Start: 10-24-2022 End: 12-24-2022 Comprehensive metabolic 2000 panel - Serum or Plasma COMP METABOLIC PANEL Lab STAT Multiple myeloma in remission (HCC) H/O autologous stem cell transplant (HCC) Expected: 10/24/2022, Expires: 12/24/2022 [facility] Work Phone: Comment on above: Expected: 10/24/2022, Expires: Start: 10-24-2022 End: 12-24-2022 KAPPA/PHAN,FREE,SER KAPPA/PHAN,FREE,SER Lab Routine Multiple myeloma in remission (HCC) H/O autologous stem cell transplant (HCC) Expected: 10/24/2022, Expires: 12/24/2022 [facility] Work Phone: Comment on above: Expected: 10/24/2022, Expires: Start: 10-24-2022 End: 12-24-2022 MONOCLONAL PROT UR W/INTERP MONOCLONAL PROT UR W/INTERP Lab Routine Multiple myeloma in remission (HCC) H/O autologous stem cell transplant (HCC) Expected: 10/24/2022, Expires: 12/24/2022 [facility] Work Phone: Comment on above: Expected: 10/24/2022, Expires: 3 Start: 10-24-2022 End: 12-24-2022 MONOCLONAL PROTEIN, SERUM (BLOOD) MONOCLONAL PROTEIN, SERUM (BLOOD) Lab Routine Multiple myeloma in remission (HCC) H/O autologous stem cell transplant (HCC) Expected: 10/24/2022, Expires: 12/24/2022 [facility] Work Phone: Comment on above: Expected: 10/24/2022, Expires: 3 Start: 10-24-2022 End: 12-24-2022 PROTEIN ELECT RND UR W/INTERP PROTEIN ELECT RND UR W/INTERP Lab Routine Multiple myeloma in remission (HCC) H/O autologous stem cell transplant (HCC) Expected: 10/24/2022, Expires: 12/24/2022 [facility] Work Phone: Comment on above: Expected: 10/24/2022, Expires: Start: 10-24-2022 End: 12-24-2022 PROTEIN ELECTROPHORESIS SERUM W/INTERP PROTEIN ELECTROPHORESIS SERUM W/INTERP Lab Routine Multiple myeloma in remission (HCC) H/O autologous stem cell transplant (HCC) Expected: 10/24/2022, Expires: 12/24/2022 [facility] Work Phone: Comment on above: Expected: 10/24/2022, Expires: Start: 10-19-2022 Hemoglobin A1c/Hemoglobin.total in Blood HBA1C [facility] Start: 10-13-2022 COLORECTAL CANCER SCREENING COLORECTAL CANCER SCREENING [facility] Start: 10-07-2022 Hepatitis B screening URINE ALBUMIN:CREATININE RATIO [facility] Start: 10-07-2022 Hepatitis B surface antibody level LDL CHOLESTEROL [facility] Start: 10-06-2022 3 comp foot exam completed DIABETIC FOOT EXAM [facility] Start: 10-06-2022 ANNUAL PCP TEAM CHRONIC DISEASE VISIT ANNUAL PCP TEAM CHRONIC DISEASE VISIT [facility] Start: 10-06-2022 BP CONTROLLED (<130/80) BP CONTROLLED (<130/80) [facility] in Start: 09-30-2022 End: 11-30-2022 ALBUMIN/CREAT RATIO RND UR ALBUMIN/CREAT RATIO RND UR Lab Routine Type 2 diabetes mellitus without complication, without long-term current use of insulin (HCC) Expected: 09/30/2022, Expires: 11/30/2022 [facility] Work Phone: Comment on above: Expected: 09/30/2022, Expires: 3 Start: 09-30-2022 End: 11-30-2022 CBC W Auto Differential panel - Blood CBC + DIFF Lab Routine Type 2 diabetes mellitus without complication, without long-term current use of insulin (HCC) 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) Expected: 09/30/2022, Expires: 11/30/2022 [facility] Work Phone: Comment on above: Expected: 09/30/2022, Expires: 3 Start: 09-30-2022 End: 11-30-2022 Cobalamin (Vitamin B12) [Mass/volume] in Serum or Plasma VITAMIN B12 BLOOD Lab Routine Gastroesophageal reflux disease, unspecified whether esophagitis present Low serum vitamin B12 Medication management Expected: 09/30/2022, Expires: 11/30/2022 [facility] Work Phone: Comment on above: Expected: 09/30/2022, Expires: Start: 09-30-2022 End: 11-30-2022 Comprehensive metabolic 2000 panel - Serum or Plasma COMP METABOLIC PANEL Lab Routine Type 2 diabetes mellitus without complication, without long-term current use of insulin ([facility]) Essential hypertension Mixed hyperlipidemia Expected: 09/30/2022, Expires: 11/30/2022 [facility] Work Phone: Comment on above: Expected: 09/30/2022, Expires: 3 Start: 09-30-2022 End: 11-30-2022 Hemoglobin A1c in Blood HGB A1C Lab Routine Type 2 diabetes mellitus without complication, without long-term current use of insulin (HCC) Expected: 09/30/2022, Expires: 11/30/2022 [facility] Work Phone: Comment on above: Expected: 09/30/2022, Expires: 3 Start: 09-30-2022 End: 11-30-2022 Lipid 1996 panel - Serum or Plasma LIPID PANEL BASIC Lab Routine Type 2 diabetes mellitus without complication, without long-term current use of insulin ([facility]) Essential hypertension Mixed hyperlipidemia Expected: 09/30/2022, Expires: 11/30/2022 [facility] Work Phone: Comment on above: Expected: 09/30/2022, Expires: 3 Start: 09-30-2022 End: 11-30-2022 Magnesium [Mass/volume] in Serum or Plasma MAGNESIUM BLD Lab Routine Gastroesophageal reflux disease, unspecified whether esophagitis present Hypomagnesemia Medication management Expected: 09/30/2022, Expires: 11/30/2022 [facility] Work Phone: Comment on above: Expected: 09/30/2022, Expires: 3 Start: 09-30-2022 End: 11-30-2022 Prostate specific Ag [Mass/volume] in Serum or Plasma PSA/PROSTSPECAG DIAG Lab Routine Prostate disorder Expected: 09/30/2022, Expires: 11/30/2022 [facility] Work Phone: Comment on above: Expected: 09/30/2022, Expires: 3 Start: 09-30-2022 End: 11-30-2022 Urinalysis complete panel - Urine URINALYSIS, WITH MICROSCOPIC Lab Routine Type 2 diabetes mellitus without complication, without long-term current use of insulin (HCC) Essential hypertension Mixed hyperlipidemia Expected: 09/30/2022, Expires: 11/30/2022 [facility] Work Phone: Comment on above: Expected: 09/30/2022, Expires: 3 Start: 09-25-2022 Colonoscopy COLONOSCOPY [facility] Start: 09-25-2022 COLORECTAL CANCER SCREENING COLORECTAL CANCER SCREENING [facility] Start: 09-18-2022 ADVANCE DIRECTIVE DISCUSSION ADVANCE DIRECTIVE DISCUSSION [facility] Start: 09-18-2022 DEPRESSION ASSESSMENT DEPRESSION ASSESSMENT [facility] Start: 09-09-2022 Hepatitis C antibody, confirmatory test DILATED RETINAL EXAM [facility] Start: 08-29-2022 COVID-19 VACCINE (6 - Moderna risk series) COVID-19 VACCINE (6 - Moderna risk series) [facility] Start: 07-23-2022 End: 01-20-2023 Echocardiography ECHO Cardiology Routine Pulmonary arterial hypertension (HCC) Expected: 07/23/2022, Expires: 01/20/2023 [facility] Work Phone: Comment on above: Expected: 07/23/2022, Expires: 3 Start: 07-10-2022 Adult depression screening assessment DEPRESSION SCREENING [facility] Start: 05-19-2022 Influenza vaccination INFLUENZA (#1) [facility] Start: 04-28-2022 COVID-19 VACCINE (5 - Booster for Moderna series) COVID-19 VACCINE (5 - Booster for Moderna series) [facility] Start: 04-21-2022 End: 05-07-2023 XR HAND GENERAL 3V PA/LAT/OBL LEFT XR HAND GENERAL 3V PA/LAT/OBL LEFT Radiology Routine Pain of left hand Expected: 04/21/2022, Expires: 05/07/2023 [facility] Work Phone: Comment on above: Expected: 04/21/2022, Expires: 3 Start: 04-06-2022 Hemoglobin A1c/Hemoglobin.total in Blood HBA1C [facility] Start: 03-22-2022 End: 05-22-2022 Cobalamin (Vitamin B12) [Mass/volume] in Serum or Plasma VITAMIN B12 BLOOD Lab Routine Low serum vitamin B12 Expected: 03/22/2022, Expires: 05/22/2022 [facility] Work Phone: Comment on above: Expected: 03/22/2022, Expires: 2 Start: 03-22-2022 End: 05-22-2022 Comprehensive metabolic 2000 panel - Serum or Plasma COMP METABOLIC PANEL Lab Routine Type 2 diabetes mellitus without complication, without long-term current use of insulin (HCC) Expected: 03/22/2022, Expires: 05/22/2022 [facility] Work Phone: Comment on above: Expected: 03/22/2022, Expires: 2 Start: 03-22-2022 End: 05-22-2022 Hemoglobin A1c in Blood HGB A1C Lab Routine Type 2 diabetes mellitus without complication, without long-term current use of insulin (HCC) Expected: 03/22/2022, Expires: 05/22/2022 [facility] Work Phone: Comment on above: Expected: 03/22/2022, Expires: 2 Start: 03-22-2022 End: 05-22-2022 LIPID PANEL, NONFASTING LIPID PANEL, NONFASTING Lab Routine Mixed hyperlipidemia Expected: 03/22/2022, Expires: 05/22/2022 [facility] Work Phone: Comment on above: Expected: 03/22/2022, Expires: 2 Start: 03-22-2022 End: 05-22-2022 Magnesium [Mass/volume] in Serum or Plasma MAGNESIUM BLD Lab Routine Hypomagnesemia Expected: 03/22/2022, Expires: 05/22/2022 [facility] Work Phone: Comment on above: Expected: 03/22/2022, Expires: 2 Start: 02-21-2022 COVID-19 VACCINE (5 - Booster for Moderna series) COVID-19 VACCINE (5 - Booster for Moderna series) [facility] Start: 09-18-2021 ADVANCE DIRECTIVE DISCUSSION ADVANCE DIRECTIVE DISCUSSION [facility] Start: 09-18-2021 DEPRESSION ASSESSMENT DEPRESSION ASSESSMENT [facility] Start: 10-22-2020 Influenza vaccination LUNG CANCER SCREENING [facility] Start: 12-22-2019 Hepatitis B Vaccine (3 of 3 - Hep B Twinrix risk 3-dose series) Hepatitis B Vaccine (3 of 3 - Hep B Twinrix risk 3-dose series) [facility] Start: 09-25-2013 Colonoscopy COLONOSCOPY [facility] Start: 09-25-2013 Screening for malignant neoplasm of colon Colonoscopy [facility] Start: 12-29-2012 FECAL OCCULT BLOOD FECAL OCCULT BLOOD [facility] Start: 2011 RSV Vaccine (1 - 1-dose 60+ series) RSV Vaccine (1 - 1-dose 60+ series) [facility] Start: 1996 COLOGUARD (FIT-DNA) COLOGUARD (FIT-DNA) [facility] Start: [address] COLONOGRAPHY [facility] Start: 1996 Screening for malignant neoplasm of colon [facility] Start: 1996 SIGMOIDOSCOPY SIGMOIDOSCOPY [facility] Start: 1981 Zoledronic acid therapy ALPHA-1 ANTITRYPSIN DEFICIENCY SCREENING [facility] Start: 1969 Anxiety Screening Anxiety Screening [facility] Start: 1969 Depression Screening Depression Screening [facility] End: 05-03-2025 Basic metabolic 2000 panel - Serum or Plasma BASIC METABOLIC PANEL Lab Routine Multiple myeloma in remission (HCC) Every 6 months for 2 Occurrences starting 05/03/2024 until 05/03/2025 [facility] Comment on above: Every 6 months for 2 Occurrences startin g 05/03/2024 until 05/03/2025 End: 11-12-2025 Basic metabolic 2000 panel - Serum or Plasma BASIC METABOLIC PANEL Lab Routine Multiple myeloma in remission (HCC) Every 4 months for 3 Occurrences starting 11/12/2024 until 11/12/2025 [facility] Comment on above: Every 4 months for 3 Occurrences startin g 11/12/2024 until 11/12/2025 End: 05-03-2025 CBC W Auto Differential panel - Blood COMPLETE BLOOD COUNT AND DIFFERENTIAL Lab Routine Multiple myeloma in remission (HCC) Every 6 months for 2 Occurrences starting 05/03/2024 until 05/03/2025 [facility] Work Phone: Comment on above: Every 6 months for 2 Occurrences startin g 05/03/2024 until 05/03/2025 End: 11-12-2025 CBC W Auto Differential panel - Blood COMPLETE BLOOD COUNT AND DIFFERENTIAL Lab Routine Multiple myeloma in remission (HCC) Every 4 months for 3 Occurrences starting 11/12/2024 until 11/12/2025 [facility] Work Phone: Comment on above: Every 4 months for 3 Occurrences startin g 11/12/2024 until 11/12/2025 COVID & INFLUENZA A/ B & RSV NAAT, ROUTINE COVID & INFLUENZA A/B & RSV NAAT, ROUTINE Microbiology Routine URI, acute 05/25/2023 1:21 PM EDT [facility] Work Phone: End: 08-10-2024 Ct thorax w/o contrast material CT CHEST WO IVCON Radiology Routine Lung nodules 1 Occurrences starting 07/12/2023 until 08/10/2024 [facility] Work Phone: Comment on above: 1 Occurrences starting 07/12/2023 until 08/10/2024 Ct thorax w/o contra st material CT CHEST WO IVCON Radiology Routine Lung nodules 07/31/2023 10:48 AM EST [facility] Work Phone: End: 03-20-2024 ECG COMPLETE ECG COMPLETE ECG Routine Irregular heart beat 1 Occurrences starting 03/20/2023 until 03/20/2024 [facility] Work Phone: Comment on above: 1 Occurrences starting 03/20/2023 until 03/20/2024 ECG COMPLETE ECG COMPLETE ECG 03/22/2023 2:47 PM EDT [facility] Hemoglobin.gastroint estcassie al.lower [Presence] in Stool by Immunoassay FECAL OCCULT BLOOD TEST Lab Routine Screening for colon cancer Ordered: 09/30/2022 [facility] Work Phone: Comment on above: Ordered: 09/30/2022 Hemoglobin.gastroint estcassie al.lower [Presence] in Stool by Immunoassay IMMUNOCHEMICAL FECAL OCCULT BLOOD TEST Lab Routine Screening for colon cancer Ordered: 11/18/2024 [facility] Work Phone: Comment on above: Ordered: 11/18/2024 End: 05-03-2025 KAPPA/PHAN,FREE,SER KAPPA/PHAN,FREE,SER Lab Routine Multiple myeloma in remission (HCC) Every 6 months for 2 Occurrences starting 05/03/2024 until 05/03/2025 [facility] Comment on above: Every 6 months for 2 Occurrences startin g 05/03/2024 until 05/03/2025 End: 11-12-2025 KAPPA/PHAN,FREE,SER KAPPA/PHAN,FREE,SER Lab Routine Multiple myeloma in remission (HCC) Every 4 months for 3 Occurrences starting 11/12/2024 until 11/12/2025 [facility] Comment on above: Every 4 months for 3 Occurrences startin g 11/12/2024 until 11/12/2025 End: 05-03-2025 MONOCLONAL PROTEIN, SERUM (BLOOD) MONOCLONAL PROTEIN, SERUM (BLOOD) Lab Routine Multiple myeloma in remission (HCC) Every 6 months for 2 Occurrences starting 05/03/2024 until 05/03/2025 [facility] Comment on above: Every 6 months for 2 Occurrences startin g 05/03/2024 until 05/03/2025 End: 11-12-2025 MONOCLONAL PROTEIN, SERUM (BLOOD) MONOCLONAL PROTEIN, SERUM (BLOOD) Lab Routine Multiple myeloma in remission (HCC) Every 4 months for 3 Occurrences starting 11/12/2024 until 11/12/2025 [facility] Comment on above: Every 4 months for 3 Occurrences startin g 11/12/2024 until 11/12/2025 End: 05-16-2025 MR Brain WO contrast MRI BRAIN WO IVCON Radiology Routine Vertigo 1 Occurrences starting 04/16/2024 until 05/16/2025 [facility] Comment on above: 1 Occurrences starting 04/16/2024 until 05/16/2025 MR Lumbar spine [facility] MR Thoracic spine [facility] Patient Education [facility] Work Phone: Patient referral [facility] Work Phone: End: 05-03-2025 PROTEIN ELECTROPHORESIS SERUM W/INTERP PROTEIN ELECTROPHORESIS SERUM W/INTERP Lab Routine Multiple myeloma in remission (HCC) Every 6 months for 2 Occurrences starting 05/03/2024 until 05/03/2025 [facility] Comment on above: Every 6 months for 2 Occurrences startin g 05/03/2024 until 05/03/2025 End: 11-12-2025 PROTEIN ELECTROPHORESIS SERUM W/INTERP PROTEIN ELECTROPHORESIS SERUM W/INTERP Lab Routine Multiple myeloma in remission (HCC) Every 4 months for 3 Occurrences starting 11/12/2024 until 11/12/2025 [facility] Comment on above: Every 4 months for 3 Occurrences startin g 11/12/2024 until 11/12/2025 End: 10-30-2023 Radex spine lumbosacral minimum 4 views XR LUMBAR PARS DEFECT 4V AP/LAT/BOTH OBL Radiology Routine Spinal stenosis, lumbar region, without neurogenic claudication 1 Occurrences starting 09/30/2022 until 10/30/2023 [facility] Work Phone: Comment on above: 1 Occurrences starting 09/30/2022 until 10/30/2023 End: 05-26-2023 Radiologic examination osseous survey compl XR BONE SURVEY ROUTINE Radiology Routine Multiple myeloma in remission (HCC) H/O autologous stem cell transplant (HCC) 1 Occurrences starting 04/26/2022 until 05/26/2023 [facility] Work Phone: Comment on above: 1 Occurrences starting 04/26/2022 until 05/26/2023 End: 10-27-2022 Radiologic examination osseous survey compl [facility] Work Phone: Comment on above: 1 Occurrences starting 10/27/2022 until 10/27/2022 ROUTINE FLU A/B + RSV ROUTINE FL U A/B + RSV Lab Routine URI, acute 05/25/2023 1:21 PM EDT [facility] Work Phone: SARS-CoV-2 (COVID-19 ) RNA [Presence] in Respiratory specimen by JUANA with probe detection COVID NAAT, ROUTINE Microbiology Routine URI, acute 05/25/2023 1:21 PM EDT [facility] Work Phone: End: 02-19-2023 SPIROMETRY BASELINE ONLY SPIROMETRY BASELINE ONLY PFT Routine 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[facility]) 1 Occurrences starting 01/20/2022 until 02/19/2023 [facility] Work Phone: Comment on above: 1 Occurrences starting 01/20/2022 until 02/19/2023 End: 04-16-2025 US Carotid arteries - bilateral US CAROTID ARTERIES [facility] V[facility] Lab Routine Vertigo 1 Occurrences starting 04/16/2024 until 04/16/2025 [facility] Work Phone: Comment on above: 1 Occurrences starting 04/16/2024 until 04/16/2025 [facility] End: 07-02-2025 US.doppler Extremity arteries - bilateral for physiologic artery study PVR ANK PRESS [facility] V[facility] Lab Routine PAD (peripheral artery disease) (HCC) 1 Occurrences starting 07/02/2024 until 07/02/2025 [facility] Work Phone: Comment on above: 1 Occurrences starting 07/02/2024 until 07/02/2025 XR HAND GENERAL 3V PA/LAT/OBL LEFT XR HAND GENERAL 3V PA/LAT/OBL LEFT Radiology Routine Pain of left hand 04/18/2022 8:09 AM EDT [facility] Work Phone: [facility] Immunizations Immunization Date Immunization Notes Care Provider [facility] 07-01-2024 COVID-19 vaccine, ag e 12+ yr (PFIZER-BIONTECH COMIRNATY) Ovidio Vincent MD Work Phone: [facility] 07-01-2024 influenza, high dose seasonal, preservative-free Ovidio Vincent MD Work Phone: [facility] 07-12-2023 influenza (HD-IIV4) vaccine, age 65+ yr, high dose, quadrivalent, PF (FLUZONE HIGH-DOSE) Loretta Leon PA-C Work Phone: [facility] 07-12-2023 influenza virus vacc ine, unspecified formulation Ovidio Vincent MD Work Phone: [facility] 09-05-2022 zoster vaccine recombinant Ovidio Vincent MD Work Phone: [facility] 07-04-2022 COVID-19 booster vaccine, age 12+ yr, bivalent (PFIZER-BIONTECH) Ovidio Vincent MD Work Phone: [facility] 06-14-2022 influenza (aIIV4) vaccine, age 65+ yr, quadrivalent, PF (FLUAD QUADRIVALENT) Ramu Alanis MA [facility] 06-14-2022 Influenza, high dose seasonal Dr. Ovidio Vincent MD Work Phone: [facility] 06-14-2022 influenza, high dose seasonal, preservative-free [facility] 06-14-2022 zoster vaccine recombinant Ovidio Vincent MD Work Phone: [facility] 06-14-2022 influenza virus vacc ine, unspecified formulation Ovidio Vincent MD Work Phone: [facility] 12-27-2021 COVID-19 vaccine, fu ll dose (MODERNA) Nargis Ortega RN [facility] 07-21-2021 Covid (Moderna) [facility] 06-11-2021 influenza, high-dose , quadrivalent vaccine (FLUZONE HIGH DOSE QUADRIVALENT) Nargis Ortega RN [facility] 04-07-2021 zoster vaccine recombinant Nargis Ortega RN [facility] 03-15-2021 pneumococcal polysaccharide vaccine, 23 valent Nargis Ortega RN [facility] 02-01-2021 zoster vaccine recombinant Nargis Ortega RN [facility] 01-11-2021 SHINGRIX, PF, 50 mcg /0.5 mL injection Nargis Ortega [facility] Work Phone: Comment on above: Inject 0.5 mL intram uscularly now and repeat 2nd dose in 2-6 months 01-07-2021 COVID-19 vaccine, fu ll dose (MODERNA) Nargis Ortega RN [facility] 12-10-2020 COVID-19 vaccine, fu ll dose (MODERNA) Nargis Ortgea RN [facility] 12-03-2020 Covid (Moderna) [facility] 06-11-2020 influenza, high dose seasonal, preservative-free Nargis Ortega RN [facility] 06-11-2020 unknown vaccine or immune globulin Ovidio Vincent MD Work Phone: [facility] 09-23-2019 haemophilus influenz ae type b vaccine, PRP-T conjugate Nargis Ortega RN [facility] 09-23-2019 meningococcal polysaccharide (groups A, C, Y and W-135) diphtheria toxoid conjugate vaccine (MCV4P) Nargis Ortega RN [facility] 09-23-2019 pneumococcal conjuga te vaccine, 13 valent Nargis Ortega RN [facility] 09-23-2019 tetanus and diphther ia toxoids, adsorbed, preservative free, for adult use (5 Lf of tetanus toxoid and 2 Lf of diphtheria toxoid) Nargis Ortega [facility] 07-23-2019 haemophilus influenz ae type b vaccine, PRP-OMP conjugate Nargis Ortega [facility] 07-23-2019 hepatitis A and hepatitis B vaccine Nargis Ortega [facility] 07-23-2019 pneumococcal conjuga te vaccine, 13 valent Nargis rOtega [facility] 07-23-2019 tetanus and diphther ia toxoids, adsorbed, preservative free, for adult use (5 Lf of tetanus toxoid and 2 Lf of diphtheria toxoid) Nargis Ortega [facility] 07-15-2019 influenza, high dose seasonal, preservative-free Nargis Ortega [facility] 07-30-2018 haemophilus influenz ae type b vaccine, PRP-OMP conjugate Nargis Ortega [facility] 07-30-2018 hepatitis A and hepatitis B vaccine Nargis Ortega [facility] 07-30-2018 influenza, high dose seasonal, preservative-free Nargis Ortega [facility] 07-30-2018 pneumococcal conjuga te vaccine, 13 valent Nargis Ortega [facility] 07-30-2018 tetanus toxoid, redu kobe diphtheria toxoid, and acellular pertussis vaccine, adsorbed Nargis Ortega [facility] 06-26-2017 influenza, high dose seasonal, preservative-free Nargis Ortega [facility] 07-07-2016 influenza, high dose seasonal, preservative-free Nargis Ortega [facility] Work Phone: 07-07-2016 pneumococcal conjuga te vaccine, 13 valent Nargis Ortega [facility] Work Phone: 2015 influenza, seasonal, injectable Nargis Ortega [facility] Work Phone: 07-04-2014 influenza, seasonal, injectable Nargis Ortega [facility] 08-14-2012 zoster vaccine, live Nargis Ortega [facility] 12-27-2011 tetanus toxoid, redu kobe diphtheria toxoid, and acellular pertussis vaccine, adsorbed Nargis Ortega RN [facility] 07-12-2008 influenza virus vacc ine, whole virus Ovidio Vincent MD Work Phone: [facility] 03-18-1996 diphtheria and tetan us toxoids, adsorbed for pediatric use Nargis Ortega RN [facility] Work Phone: 12-06-1994 hepatitis B immune globulin Nargis Ortega RN [facility] Work Phone: 06-23-1994 hepatitis B immune globulin Nargis Ortega RN [facility] Work Phone: 05-16-1994 hepatitis B immune globulin Nargis Ortega RN [facility] Work Phone: Payers Date Payer Category Payer Self-pay [id number] 2021 Medicare AETNA MEDICARE A ETNA MEDICARE PPO [id number] 2021-Present [phone] [address] [place] [address] PPO [id number] 2021 Medicare AETNA MEDICARE A ETNA MEDICARE PPO [id number] 2021-Present [phone] [address] [place] [address] PPO [id number] 2021 Medicare (Managed Care) [employer] [place] [id number] 2021 Private Health Insurance [id number] 2011 Unknown [id number] Unknown [id number] 462 Unknown [id number] 462 Unknown [id number] 462 Unknown [id number]. 462 Unknown [id number]. 462 Unknown [id number]. 462 Unknown [id number]. 462 Unknown [id number] 462 Unknown [id number]. 462 Unknown [id number] 462 Unknown [id number] 462 Unknown [id number]. 462 Unknown [id number] 462 Unknown [id number] 462 Unknown [id number] 462 Unknown [id number] 462 Social History Date Type Detail Facility Start: 04-09-2012 End: 02-05-2025 Tobacco smoking status NHIS Ex-smoker [facility] Start: 1971 End: 12-09-2011 History of tobacco use Current smoker [facility] Start: 1971 End: 12-09-2011 History of tobacco use Pipe Smoker [facility] Start: 04-09-2012 End: 02-17-2023 Cigarettes smoked current (pack per day) - Reported 0.25 [facility] Start: 04-09-2012 End: 05-27-2024 Tobacco use and exposure Smokeless tobacco non-user [facility] Start: 12-20-2021 End: 12-20-2024 Alcohol intake Current drinker of alcohol (finding) [facility] Start: 07-14-2020 End: 09-23-2022 History SDOH Alcohol Frequency 3 [facility] Start: 07-14-2020 End: 09-23-2022 History SDOH Alcohol Std Drinks 1 [facility] Start: 03-27-2018 History SDOH Alcohol Comment rare [facility] Start: 05-18-2020 End: 03-21-2022 History SDOH Social Connections Phone 5 [facility] Start: 05-18-2020 End: 09-23-2022 History SDOH Social Connections Get Together 4 [facility] Start: 05-18-2020 End: 09-23-2022 History SDOH Stress 2 [facility] Start: 09-18-2019 Education 17 [facility] Start: 04-19-2021 End: 07-04-2022 Tobacco Comment 1/4 pack of cigs; pipe smoker. None of either since cessation. No ETS in childhood home. [facility] Start: 1950 Sex Assigned At Not on file [facility] Start: 10-12-2017 End: 08-17-2023 Tobacco smoking status TXIS Unknown if ever smoked [facility] Start: 1950 Sex Assigned At Male [facility] Start: 01-10-2022 End: 08-08-2022 Exposure to SARS-CoV-2 (event) Not sure [facility] Start: 03-19-2022 End: 03-29-2022 Exposure to SARS-CoV-2 (event) Unable to assess [facility] Work Phone: Start: 1970 End: 12-09-2011 History of tobacco use Cigarette Smoker [facility] Work Phone: Start: 08-08-2022 Tobacco Comment 1/4 pack of cigs; pipe smoker. None of either since cessation. No ETS in childhood home. Smoked up to one ppd [facility] Start: 09-23-2022 History SDOH Alcohol Std Drinks 0 [facility] Start: 09-23-2022 History SDOH Social Connections Meetings 98 [facility] Start: 09-23-2022 End: 02-17-2023 Social connection and isolation panel [facility] Active Member of [facility] bs or Organizations Not on file [facility] Are you now , , , , never or living with a partner? [facility] How often do you hav e 6 or more drinks on 1 occasion? Never [facility] Do you feel stress - tense, restless, nervous, or anxious, or unable to sleep at night because your mind is troubled all the time - these days [OSQ] Not at all [facility] (I/We) worried wheth er (my/our) food would run out before (I/we) got money to buy more. Never true [facility] In the past 12 month s, was there a time when you were not able to pay the mortgage or rent on time? No [facility] Start: 03-17-2022 Gender identity Identifies as male gender (finding) [facility] Start: 03-17-2022 Sexual orientation Heterosexual (finding) [facility] Do you belong to any clubs or organizations such as orthodox groups, unions, fraternal or athletic groups, or school groups? Yes [facility] How often to you hav e a drink containing alcohol? Monthly or less [facility] Start: 10-10-2023 Alcohol Comment seldom [facility] How many standard dr inks containing alcohol do you have on a typical day? 1 or 2 [facility] Goals Date Patient Goal Desired Activity /State Personal health goal Personal health goal Comment on above: Formatting of this n ote might be different from the original. Continue to maintain independence and keep going on mission trips. Personal health goal Comment on above: Formatting of this n ote might be different from the original. Patient has the following High Blood Pressure/Hypertension Goals: Two PCP Visits annually and BMP annually HTN Education given and reviewed with patient --sent on 04/19/23 Medication compliance education and Checking your Blood Pressure at Home Patient will meet these goals by 09/17/23-Pt is monitoring BP daily. Notify PCP with any high or low values. Personal health goal Comment on above: Formatting of this n ote might be different from the original. Patient has the following Chronic Obstructive Pulmonary Disease goals: Two PCP visits annually and Pulmonology visit annually Education provided and reviewed with patient - ongoing education: COPD Core Education Packet, COPD Action Plan/Zones, Understanding COPD, How to use MDI, and COPD MACO Education - COPD About Patient will meet these goals by 09/17/24 (describe interventions done by PCC) Comment on above: Formatting of this n ote might be different from the original. Comment on above: Formatting of this n ote might be different from the original. Stay as active and independent for as long as I can Comment on above: Formatting of this n ote might be different from the original. Maintain independence and keep going on mission trips. Comment on above: Formatting of this n ote might be different from the original. Continue to maintain independence and keep going on mission trips. Functional Status Date Assessment Result Facility 11-12-2024 Total score [AUDIT-C] 1 11/12/19 7:31 AM EST User, [email or web address] [facility] 11-12-2024 Within the last year , have you been humiliated or emotionally abused in other ways by your partner or ex-partner? No 11/12/2024 7:31 AM EST User, Monserrat [facility] 11-12-2024 Within the last year , have you been afraid of your partner or ex-partner? No 11/12/2024 7:31 AM EST User, Monserrat [facility] 11-12-2024 Within the last year , have you been raped or forced to have any kind of sexual activity by your partner or ex-partner? No 11/12/2024 7:31 AM EST User, [email or web address] No [facility] 11-12-2024 Within the last year , have you been kicked, hit, slapped, or otherwise physically hurt by your partner or ex-partner? No 11/12/2024 7:31 AM EST User, [email or web address] No [facility] 11-12-2024 How often to you hav e a drink containing alcohol? Monthly or less 11/12/2024 7:31 AM EST User, Mychart Monthly or less [facility] 11-12-[address] inks containing alcohol do you have on a typical day? 1 or 2 11/12/2024 7:31 AM EST User, Mychart 1 or 2 [facility] 11-12-2024 How often do you hav e 6 or more drinks on 1 occasion? Never 11/12/2024 7:31 AM EST User, Mychart Never [facility] 01-14-2023 Functional status Chair [facility] Work Phone: 01-13-2023 Functional status With Assist of 1 [facility] Work Phone: 10-25-2019 Are you deaf, or do you have serious difficulty hearing No 10/25/2019 5:01 PM Trinidad Lopez RN No [facility] 10-25-2019 Are you blind, or do you have serious difficulty seeing, even when wearing glasses No 10/25/2019 5:01 PM Trinidad Lopez RN No [facility] 10-25-2019 Do you have serious difficulty walking or climbing stairs No 10/25/2019 5:01 PM Trinidad Lopez RN No [facility] 10-25-2019 Do you have difficul ty dressing or bathing No 10/25/2019 5:01 PM Trinidad Lopez RN No [facility] 10-25-2019 Because of a physica l, mental, or emotional condition, do you have difficulty doing errands alone such as visiting a physician's office or shopping No 10/25/2019 5:01 PM Trinidad Lopez RN No [facility] Mental Status Date Assessment Result Facility 03-22-2023 Cognitive function Level Of Cons ciousness Awake;Alert;Appropriate;Fol lows Commands [facility] Work Phone: 02-17-2023 Cognitive function Level Of Cons ciousness Awake;Alert;Appropriate;Fol lows Commands;Responds to vocal stimuli [facility] Work Phone: 02-10-2023 Cognitive function Level Of Cons ciousness Awake;Alert;Appropriate [facility] Work Phone: 01-14-2023 Cognitive function Voice/Name [facility] Work Phone: 01-13-2023 Cognitive function Voice/Name [facility] Work Phone: 10-25-2019 Because of a physica l, mental, or emotional condition, do you have serious difficulty concentrating, remembering, or making decisions No 10/25/2019 5:01 PM Trinidad Lopez RN No [facility] Clinical Notes 10-23-2019 to 02-21-2025 Slime Hernandez LPN - 02/17/2025 2:08 PM EDTHSlime perry LPN - 02/17/2025 11:47 AM EDT Note Date & Type Note Facility 02-21-2025 Progress note [facility] 02-17-2025 History of Presen t illness Narrative Scan on 02/17/2025 2:12 PM by Justyn Clark PA-C: Chemistry Scan on 02/17/2025 1:35 PM by Justyn Clark PA-C: Chemistry documented in this encounter [facility] 02-17-2025 History of Presen t illness Narrative Scan on 02/17/2025 11:24 AM by Justyn Clark PA-C: Consultation - Cardiology documented in this encounter [facility] 02-17-2025 Progress note [facility] 02-17-2025 Progress note Note Date/Time February 17, 2025 11:10am [facility] [address] [place] [address] OFFICE VISIT Date of Service: 02/17/25 MR#: [id number] Acct: [id number] Name: RONNIE YARBROUGH Rep #: [id number] : 1950 Provider: Dr. Sam Gamble MD Age/Sex: 74/M [place] [facility] Status: Signed HPI HPI History of Present Illness Details: This gentleman with history of hypertension, hypertensive heart disease, dyslipidemia and rheumatoid arthritis is here for follow-up visit. Denies any chest pains either at rest or with exertion. No shortness of breath. Denies any palpitations. No orthopnea or PND. He has chronic lower extremity edema with history of DVTs. He wears compression stockings for those. Patient is being contemplated for back surgery. He is scheduled for a Lexiscan stress Myoview this month. Patient's functional status cannot be completely evaluated because of his debility on account of his rheumatoid arthritis and back pain. 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 Accompanied by: Is patient in pain?: No Allergies No Known Allergies Allergy (Verified 02/17/25 10:51) Medications ?Medication ?Instructions ?Recorded ?Confirmed ?Type aspirin 81 mg tablet,delayed 81 mg PO DAILY Heart 12/1802/17/25 History release calcium carb-ergocalciferol (vit 200 tab PO DAILY Supp lment 01/05/23 02/17/25 History D2) 600 mg calcium-200 unit tablet cholecalciferol (vitamin D3) 50 50 mcg PO DAILY Supple ment 01/05/23 02/17/25 History mcg (2,000 unit) tablet cyanocobalamin (vitamin B-12) 1,000 mcg PO DAILY Suppl ement 01/05/23 02/17/25 History 1,000 mcg capsule losartan 25 mg tablet 12.5 mg PO DAILY BP 01/05/23 02/17/25 History metformin 1,000 mg tablet 1,000 mg PO BID DM 01/05/23 02/17/25 History multivitamin 1 tab PO DAILY Supplement 02/17/25 History omeprazole 40 mg capsule,delayed 40 mg PO DAILY GERD 0 01/05/23 02/17/25 History release dapagliflozin propanediol 10 mg 10 mg PO DAILY 3 02/17/25 History tablet (Farxiga) fluticasone fur. 100 mcg-umeclid 1 inh inhalation SUSHIL Y 05/02/23 02/17/25 History 62.5 mcg-vilant 25 mcg inhalat.powder (Trelegy Ellipta) torsemide 20 mg tablet 20 mg PO DAILY 08/17/2311/12 History atorvastatin 40 mg tablet 40 mg PO QDAY 03/06/2402/17 History terbinafine HCl 250 mg tablet 250 mg PO DAILY Antifung al 03/06/24 02/17/25 History magnesium oxide 250 mg PO BID 08/08/2402/17 History oxycodone 5 mg tablet 5 mg PO TID PRN pain 5 02/17/25 History carvedilol 12.5 mg tablet 12.5 mg PO BID #180 tabs 01/1002/17/25 Rx dulaglutide 3 mg/0.5 mL 3 mg subcut QWEEK 02/04/25 0 02/17/25 History subcutaneous pen injector (Trulicity) Ejection fraction %: 70 Have you fallen in the past year?: No PFSH Medical History Abnormal ECG Ambulates with cane Back pain Bone tumor Cancer Cardiology follow-up encounter COPD (chronic obstructive pulmonary disease) Debility Diabetes mellitus DVT of lower extremity, bilateral Essential hypertension Former smoker Gastric reflux GERD (gastroesophageal reflux disease) High cholesterol History of echocardiogram History of edema History of Holter monitoring History of multiple myeloma History of steroid therapy History of stress test Hyperlipidemia Injury of back Injury of head and neck Joint infection of right wrist Multiple myeloma Osteoarthritis Paroxysmal atrial fibrillation Pre-op testing Rheumatoid arthritis Thoracic spinal stenosis Wears glasses Wears hearing aid Surgical History History of bone marrow transplant History of carpal tunnel surgery of right wrist History of colonoscopy History of esophagogastroduodenoscopy History of laminectomy History of lumbar fusion History of reverse total replacement of right shoulder joint History of tonsillectomy History of total left knee replacement (TKR) (~08/2023) History of total right knee replacement (TKR) Hx of bilateral cataract extraction Hx of eye surgery Hx of fusion of cervical spine Family History Father Cancer, Onset Age: 52 Pancreatic cancer. Diabetes Sister Diabetes Grandmother Diabetes Social History household members: spouse Smoking Status: Former smoker quit date: 09/18/12 alcohol intake: current alcohol intake frequency: a few times a month substance use type: does not use caffeine: Yes Type: coffee Number of servings: 3 ROS Const Const: Negative for fatigue, weakness, headache(s) or weight gain ENT ENT: Negative for headache(s), dizziness, Nosebleed/epistaxis or balance problems Cardio Chest Pain: No Palpitations: No Edema: Bilateral (BLE; chronic; unchanged) Muscle aches with walking: None Resp Respiratory: Negative for SOB with activity, SOB at rest or SOB orthopneaundefinedSOB lying down GI GI: Negative nausea, vomiting or heartburn Musc Musc: Negative for muscle aches/ myalgia, muscle weakness, joint pain or balanceproblems Neuro Neuro: Negative for dizziness, lightheadedness, near syncope, syncope, headache(s) or weakness Endo Endo: Negative for fatigue Cardiology Exam Const Appearance: comfortable and no acute distress Nutritional Appearance: well nourished Neck Neck: no JVD Carotids: Negative bruit Chest Auscultation: Bilateral: Clear to Auscultation Cardio Rate: regular rate Rhythm: regular rhythm Heart sounds: S1 normal and S2 normal Neuro General: patient alert, patient awake and patient oriented x3 Extremities Lower Extremity Edema: +2: Bilateral Supplemental Info Supplemental Information Echocardiogram 05/29/2023: Interpretation Summary Mild concentric left ventricular hypertrophy. The left ventricular ejection fraction is 70 % The left atrium is mildly enlarged. Aortic sclerosis, no stenosis. Mildly dilated aortic root. The study was technically difficult. Echocardiogram 08/08/2022: CONCLUSIONS: - Exam indication: Shortness of Breath - The left ventricle is normal in size. Left ventricular systolic function is normal. EF = 62 ? 5% (2D biplane) Normal left ventricular diastolic function. - The right ventricle is normal in size. Right ventricular systolic function is normal. - There are no apparent significant valvular abnormalities. - Exam was compared with the prior echocardiographic exam performed on 07/26/2021, no significant change. 48-Hour Holter Monitor Report 08/21/2024: Interpretation: There were a total of 186145 beats recorded over the 48 hours The average heart rate was 72 bpm in Normal Sinus Rhythm with episodes of Sinus Arrhythmia. The minimum heart rate was 32 bpm in sinus bradycardia recorded at 4:53:22 AM D2. The maximum heart rate was 111 bpm in Sinus Tachycardia recorded at 1:07:14 PM D1. There were a total of 7845 ventricular ectopic beats comprisong of 3.8% of the total QRS complexes. 131 ventricular couplets. 7 ventricular triplets. 61 beats of ventricular bigeminy. 141 beats of ventricular trigeminy. No runs noted. There were a total of 1711 supraventricular ectopic beats comprising 0.8% of thetotal QRS complexes. 41 atrial couplets. 10 beats of atrial bigeminy. 2 atrial runs totaling 6 beats. The longest and fastest run was 3 beats rate 148 BPM recorded at 6:49:25 PM D1. The longest R-R interval was 2.6 seconds recorded at 6:16:53 AM D1. There was no atrial fibrillation. The patient kept a 48-hour diary. No symptoms recorded. Conclusion: 48- hour Holter Monitor in Normal Sinus Rhythm with episodes of Sinus Arrhythmiaand frequent PVCs and occasional PACs. 14 Day Event Monitor 03/12/2024: Baseline sample showed SR with Trigeminal PVCs (7 in 1 min)/Couplet PACs with a heart rate of 73.2 bpm. There were 0 critical, 5 serious and 1 stable event thatoccurred. ? Assessment and Plan Assessment and Plan (1) Preoperative cardiovascular examination: Plan: I will further risk stratify this gentleman with a Lexiscan stress Myoview. Also check echocardiogram. If these failed to show any significant abnormalities, then the patient may proceed with the proposed surgery with an acceptable cardiac risk. (2) PVCs (premature ventricular contractions): Status: Chronic Plan: On carvedilol. (3) Hypertensive heart disease: Status: Chronic Plan: Continue carvedilol. Repeat echocardiogram. (4) Essential hypertension: Status: Chronic Comment: CONTROLLED ON MED Plan: Carvedilol. Torsemide (5) Dyslipidemia: Status: Chronic Plan: Atorvastatin. Continue to follow as per PCP. (6) DVT of lower extremity, bilateral: Status: Resolved Plan: Completed anticoagulation therapy. Continue wearing compression stockings. (7) Diabetes mellitus: Status: Chronic Plan: Continue to manage as per primary care physician. Plan Details Follow Up: 6 Months Coding Level of Care Code Off vis,est,level 4 Diagnoses Preoperative cardiovascular examination Z01.810 PVCs (premature ventricular contractions) I49.3 Hypertensive heart disease I11.9 Essential hypertension I10 Dyslipidemia E78.5 DVT of lower extremity, bilateral I82.403 Diabetes mellitus E11.9 Coding Level of Care Code Off vis,est,level 4 Diagnoses Preoperative cardiovascular examination Z01.810 PVCs (premature ventricular contractions) I49.3 Hypertensive heart disease I11.9 Essential hypertension I10 Dyslipidemia E78.5 DVT of lower extremity, bilateral I82.403 Diabetes mellitus E11.9 Clinical Quality Measures Falls Risk Screening/Assistive Devices Have you fallen in the past year?: No Cardiac Ejection fraction %: 70 02/17/25 1110 <Electronically signed by Patsy Gamble MD> Date _ Patsy Gamble MD Cosigner Signature: Date (if applicable) CC: Dr. Ovidio Vincent MD ~ [place] [employer] Work Phone: [phone]) 241-927605-27-2025 Telephone encounter Note* Telephone Encounter - Ramu Alanis MA - 02/11/2025 9:31 AM EDT Faxed. Ramu Alanis MA [facility]05-27-2025 Miscellaneous Notes* Telephone Encounter - Ramu Alanis MA - 02/11/2025 9:31 AM EDT Faxed. Ramu Alanis MA * Telephone Encounter - Ovidio Vincent MD - 02/07/2025 4:29 PM EDT Form ready to be faxed. * Telephone Encounter - Ramu Alanis MA - 02/06/2025 10:58 AM EDT Received fax from [employer]. Contacted patient to schedule and I asked patient is he scheduled to see Cardiology for Clearance and he indicated yes, appointment is scheduled for 02/17/2025 and they are completing Stress Test and labs etc. Form given to PCP to note that patient is being cleared by Cardiology. Ramu Alanis MA documented [facility] encounter[facility] Telephone encounter Note * Telephone Encounter - Ovidio Vincent MD - 02/07/2025 4:29 PM EDT Form ready to be faxed. [facility]05-22-2025 Telephone encounter Note* Telephone Encounter - aRmu Alanis MA - 02/06/2025 10:58 AM EDT Received fax from [employer]. Contacted patient to schedule and I asked patient is he scheduled to see Cardiology for Clearance and he indicated yes, appointment is scheduled for 02/17/2025 and they are completing Stress Test and labs etc. Form given to PCP to note that patient is being cleared by Cardiology. Ramu Alanis MA [facility]05-01-2025 Telephone encounter Note* Telephone Encounter - Nargis Fox MA - 01/16/2025 11:54 AM EDT Prescription Refill Information The patient has been identified by name and date of : Yes Caregiver verified no other encounters exist for this prescription request: Yes Caregiver confirmed with patient/requestor that no other refills are due, in the near future, with this provider at this time: No The last office visit in the department: 11/18/24 Does the patient have a future office visit with this provider/department: Yes Requested Prescriptions Pending Prescriptions Disp Refills losartan (COZAAR) 25 mg tablet 90 tablet 1 Sig: Take 0.5 tablets by mouth once daily. Nargis Fox MA January 16, 2025 11:54 AM [facility]05-01-2025 Miscellaneous Notes* Telephone Encounter - Nargis Fox MA - 01/16/2025 11:54 AM EDT Prescription Refill Information The patient has been identified by name and date of : Yes Caregiver verified no other encounters exist for this prescription request: Yes Caregiver confirmed with patient/requestor that no other refills are due, in the near future, with this provider at this time: No The last office visit in the department: 11/18/24 Does the patient have a future office visit with this provider/department: Yes Requested Prescriptions Pending Prescriptions Disp Refills losartan (COZAAR) 25 mg tablet 90 tablet 1 Sig: Take 0.5 tablets by mouth once daily. Nargis Fox MA January 16, 2025 11:54 AM documented in this encounter[facility] History of Present illness Narrative* Slime Hernandez LPN - 01/03/2025 12:13 PM EDT Scan on 01/03/2025 10:00 AM by Provider, SPENCER Alejandra: Consultation - Orthopedics documented in this encounter[facility] History of Present illness Narrative* Shania Ba RT(R) - 12/27/2024 10:00 AM EDT Radiology Service Progress Note PATIENT NAME: Ronnie Yarbrough DATE OF SERVICE: December 27, 2024 TIME: 10:09 AM PATIENT IDENTITY VERIFICATION COMPLETED USING TWO (2) IDENTIFIERS: Name and Date of confirmedby patient verbally. FALL SCREENING: Has the patient had 2 falls in the last year or 1 fall with injury or currently using an Ambulatory Assistive Device (Walker, Cane, Wheelchair, Crutches, etc.)? No PATIENT GENDER DATA: Assigned male at PATIENT RELEVANT IMPLANT DATA REVIEWED: Yes PATIENT PRESENTS WITH AN IMPLANTABLE OR ATTACHED IMPORT CUSTOMS CLEARING AGENT: No RADIOLOGY DEPARTMENT: MR; Exam(s) Completed: Spine: Thoracic spine and Lumbar spine PERIPHERAL IV DATA: Not applicable SIGNED BY: RT Chel(R) December 27, 2024 10:09 AM documented in this encounterSam[facility] History of Present illness Narrative* Esvin Marcus - 12/20/2024 3:23 PM EDT Last saw pcp: 11/18/2024 Subjective: Patient presents to clinic c/o painful toenails. They state that the nails are especially painful with shoe gear and pressure. Patient states that nails 1-5 b/l are painful. Patient admits to being diabetic. No other pedal complaints at this time. Patient states no change in medications or medical history since last visit. Objective: Patient presents to clinic ambulating in sneakers Vasc: DP and PT pulses are nonpalpable bilateral. CFT is less than 5 seconds bilateral. Skin temperature is warm to cool proximal to distal bilateral. There is moderate edema or varicosities noted. [facility]vasive [facility] Lower Extremity Arterial Physiology Study Bilateral/Complete Date of service/time: 08/01/2024 8:07:39 AM Name: MR. RONNIE YARBROUGH Date of : 1950 Age: 74 years Gender: M Clinical Indication Decreased pulses. TECHNIQUE -------- An arterial physiological examination was performed, including measurement of blood pressures using continuous wave Doppler and recording of plethysmographic with or without Doppler waveforms at the below-mentioned limb segments. FINDINGS -------- RIGHT SIDE AT REST Right Doppler Waveforms Dorsalis pedis: Multiphasic. Post tibial: Multiphasic. Right Pressures Brachial: 107 mmHg Ankle dorsalis pedis: 146 mmHg NAYE: 1.36 Partially non-compressible arteries. Ankle posterior tibial: 149 mmHg NAYE: 1.39 Partially non-compressible arteries. Digit: 121 mmHg Right PVR Waveforms Ankle: Normal. Digit: Mildly dampened. LEFT SIDE AT REST Left Doppler Waveforms Dorsalis pedis: Multiphasic. Post tibial: Multiphasic. Left Pressures Brachial: 105 mmHg Ankle dorsalis pedis: 154 mmHg NAYE: 1.44 Partially non-compressible arteries. Ankle posterior tibial: 158 mmHg NAYE: 1.48 Partially non-compressible arteries. Digit: 103 mmHg Left PVR Waveforms Ankle: Normal. Digit: Mildly dampened. IMPRESSION Compared to prior study of 10/07/2021, Remains normal waveforms and normal TBI. RIGHT SIDE Resting right ankle brachial index: 1.39 Partially non-compressible arteries, NAYE not accurate. Right toe brachial index: 1.13 Non-compressible vessels, results called by PVR tracings. Normal toe brachial index at rest in the right leg. Right ankle: Normal at rest. LEFT SIDE Resting left ankle brachial index: 1.48 Partially non-compressible arteries, NAYE not accurate. Left toe brachial index: 0.96 Non-compressible vessels, results called by PVR tracings. Normal toe brachial index at rest in the left leg. Left ankle: Normal at rest. Technologist: Rufina Swartz RVT, RDMS Ordering physician: ESVIN MARCUS Interpreting physician: TAYLOR Shaikh DO Neuro: Protective sensation is decreased to the foot and toes when tested with the 5.07 SWM bilateral. Vibratory sensation is absent at the hallux IPJ bilateral. The hallux is downgoing bilateral. Derm: Nails 1-5 b/l are painful discolored-yellow, thick, crumbly, dystrophic and with subungal debris. Skin is ruborous and hair growth is absent bilateral. There are no hyperkeratosis, ulcerations,scars, verruca or other lesions noted. Ortho: Muscle strength is 5/5 for all pedal groups tested. Ankle joint DF is decreased with the knee extended with no pain or crepitus noted. 1st MPJ ROM is decreased bilateral. Assessment: (E11.42) Diabetic polyneuropathy associated with type 2 diabetes mellitus (HCC) (primary encounter diagnosis) (B35.1) Onychomycosis (I73.9) PAD (peripheral artery disease) (M79.675) Pain in toe of left foot (M79.674) Pain in toe of right foot Plan: Patient was seen and evaluated. Nails 1-5 bilateral were debrided in length and thickness. Patient was instructed on the continued importance of diabetic foot care along with proper diet andkeeping their blood sugar under control to prevent complications. I stressed the importance of avoiding barefoot walking, wearing good shoes and inspection of feet. Reviewed pvr and clnical exam. Clinically he has ruborous discoloration to skin, cold temperature of skin and loss of hair growth. Pvr shows elevated naye but tbi is normal. If he were interested in removal of toenails, I would have him see vascular prior. Patient is to RTC in 3-4 months. Esvin Marcus DPM documented in this encounter[facility]03-[facility]25 Telephone encounter Note * Telephone Encounter - Ovidio Vincent MD - 12/11/2024 6:06 PM EDT The following approved medication requests have been transmitted electronically. Requested Prescriptions Signed Prescriptions Disp Refills dapagliflozin propanediol (FARXIGA) 10 mg tablet 90 tablet 1 Sig: Take 1 tablet by mouth once daily. Take one daily in the morning Authorizing Provider: OVIDIO VINCENT MD [facility]03-26-2025 Miscellaneous Notes* Telephone Encounter - Ovidio Vincent MD - 12/11/2024 6:06 PM EDT The following approved medication requests have been transmitted electronically. Requested Prescriptions Signed Prescriptions Disp Refills dapagliflozin propanediol (FARXIGA) 10 mg tablet 90 tablet 1 Sig: Take 1 tablet by mouth once daily. Take one daily in the morning Authorizing Provider: OVIDIO VINCENT MD * Telephone Encounter - Liberty Hayes - 12/11/2024 3:26 PM EDT Ref [id number] Patient has been identified by name and date of : Yes, Pharmacy phones for refill(s): Requested Prescriptions Pending Prescriptions Disp Refills dapagliflozin propanediol (FARXIGA) 10 mg tablet 90 tablet 1 Sig: Take 1 tablet by mouth once daily. Take one daily in the morning Date of last office visit in primary care: 11/18/2024 Date of next office visit in primary care: 06/09/2025 Please advise. Thank you. Liberty Hayes. documented in this encounter[facility]03-[facility]25 Telephone encounter Note * Telephone Encounter - Liberty Hayes - 12/11/2024 3:26 PM EDT Ref [id number] Patient has been identified by name and date of : Yes, Pharmacy phones for refill(s): Requested Prescriptions Pending Prescriptions Disp Refills dapagliflozin propanediol (FARXIGA) 10 mg tablet 90 tablet 1 Sig: Take 1 tablet by mouth once daily. Take one daily in the morning Date of last office visit in primary care: 11/18/2024 Date of next office visit in primary care: 06/09/2025 Please advise. Thank you. Liberty Hayes. 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, 2024 10:23am History of lumbar fusion acute December 05, 2024 10:23am Lumbar scoliosis acute December 052024 10:23am T12 compression fracture acute December 05, 2024 10:23am Thoracolumbar kyphosis acute [facility]2024 10:23am Failed back surgical syndrome acute January 02, 2025 3:20pm History of lumbar fusion acute January 02, 2025 3:20pm Lumbar scoliosis acute January 022024 3:20pm T12 compression fracture acute January 02, 2025 3:20pm Thoracolumbar kyphosis acute Ap [facility] 2024 3:20pm Diabetes mellitus chronic February 10:45am Dyslipidemia chronic February 17 10:45am Essential hypertension chronic Ju 2024 10:45am Hypertensive heart disease chronic February 17, 2025 10:45am PVCs (premature ventricular contractions) chronic February 17, 2025 10:45am DVT of lower extremity, bilateral resolved February 17, 2025 10:45am Preoperative cardiovascular examination noneactive February 17, 2025 10:45am [facility] Work Phone: 1(218) 958-126103-20-2025 Evaluation note* Diagnosis Onset Date Resolution Status Admit Date 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, 2024 10:23am History of lumbar fusion acute December 05, 2024 10:23am Lumbar scoliosis acute December 052024 10:23am T12 compression fracture acute December 05, 2024 10:23am Thoracolumbar kyphosis acute [facility] 2024 10:23am Failed back surgical syndrome acute January 02, 2025 3:20pm History of lumbar fusion acute January 02, 2025 3:20pm Lumbar scoliosis acute January 022024 3:20pm T12 compression fracture acute January 02, 2025 3:20pm Thoracolumbar kyphosis acute Ap [facility] 2024 3:20pm Diabetes mellitus chronic February 10:45am Dyslipidemia chronic February 17 10:45am Essential hypertension chronic 2024 10:45am Hypertensive heart disease chronic February 17, 2025 10:45am PVCs (premature ventricular contractions) chronic February 17, 2025 10:45am DVT of lower extremity, bilateral resolved February 17, 2025 10:45am Preoperative cardiovascular examination noneactive February 17, 2025 10:45am Failed back surgical syndrome acute February 21, 2025 9:51am T12 compression fracture acute February 21, 2025 9:51am Thoracolumbar kyphosis acute 2024 9:51am [facility] [employer] Work Phone: [phone]) [phone] Telephone encounter Note* Telephone Encounter - Ramu Alanis MA - 12/02/2024 9:08 AM EDT Prescription Refill Information The patient has been identified by name and date of : Yes Caregiver verified no other encounters exist for this prescription request: Yes Caregiver confirmed with patient/requestor that no other refills are due, in the near future, with this provider at this time: Yes The last office visit in the department: Does the patient have a future office visit with this provider/department: Yes Requested Prescriptions Pending Prescriptions Disp Refills metFORMIN (GLUCOPHAGE) 1,000 mg tablet 180 tablet 1 Sig: Take 1 tablet by mouth two times a day with meals. Ramu Alanis MA December 02, 2024 9:09 AM [facility]03-17-2025 Miscellaneous Notes* Telephone Encounter - Ramu Alanis MA - 12/02/2024 9:08 AM EDT Prescription Refill Information The patient has been identified by name and date of : Yes Caregiver verified no other encounters exist for this prescription request: Yes Caregiver confirmed with patient/requestor that no other refills are due, in the near future, with this provider at this time: Yes The last office visit in the department: Does the patient have a future office visit with this provider/department: Yes Requested Prescriptions Pending Prescriptions Disp Refills metFORMIN (GLUCOPHAGE) 1,000 mg tablet 180 tablet 1 Sig: Take 1 tablet by mouth two times a day with meals. Ramu Alanis MA December 02, 2024 9:09 AM documented in this [facility]25 Telephone encounter Note * Telephone Encounter - Ovidio Vincent MD - 11/19/2024 5:16 PM EST Patient sees Pulmonary. Will forward to correct provider. [facility]03-04-2025 Miscellaneous Notes* Telephone Encounter - Ovidio Vincent MD - 11/19/2024 5:16 PM EST Patient sees Pulmonary. Will forward to correct provider. * Telephone Encounter - Sondra Bonilla LPN - 11/19/2024 1:39 PM EST Prescription Refill Information The patient has been identified by name and date of : Yes Caregiver verified no other encounters exist for this prescription request: Yes Caregiver confirmed with patient/requestor that no other refills are due, in the near future, with this provider at this time: Yes The last office visit in the department: 11/18/2024 Does the patient have a future office visit with this provider/department: Yes Requested Prescriptions Pending Prescriptions Disp Refills xsxowyvqajd-cjsccbbjh-kaibltfj (TRELEGY ELLIPTA) 100-62.5-25 mcg inhalation powder 3 Each 3 Sig: inhale 1 puff by mouth and INTO THE LUNGS once daily Sondra Bonilla LPN November 19, 2024 1:40 PM documented in this encounter[facility]03-[facility]-2025 Telephone encounter Note * Telephone Encounter - Sondra Bonilla LPN - 11/19/2024 1:39 PM EST Prescription Refill Information The patient has been identified by name and date of : Yes Caregiver verified no other encounters exist for this prescription request: Yes Caregiver confirmed with patient/requestor that no other refills are due, in the near future, with this provider at this time: Yes The last office visit in the department: 11/18/2024 Does the patient have a future office visit with this provider/department: Yes Requested Prescriptions Pending Prescriptions Disp Refills gnzwbomktdp-zkfvsscnk-xzravtbz (TRELEGY ELLIPTA) 100-62.5-25 mcg inhalation powder 3 Each 3 Sig: inhale 1 puff by mouth and INTO THE LUNGS once daily Sondra Bonilla LPN November 19, 2024 1:40 PM [facility]03-04-2025 Telephone encounter Note* Telephone Encounter - Adrianne Hercules MA - 11/19/2024 10:57 AM EST Pt notified and verbalized understanding Adrianne Hercules MA [facility]03-04-2025 Miscellaneous Notes* Telephone Encounter - Adrianne Hercules MA - 11/19/2024 10:57 AM EST Pt notified and verbalized understanding Adrianne Hercules MA * Telephone Encounter - Rebecca Jansen APRN.CNP - 11/19/2024 8:43 AM EST Please let patient know her labs show improving lipids and hgba1c. Continue current dietary and lifestyle habits. documented in this encounterSam[facility]03-04-2025 Telephone encounter Note * Telephone Encounter - Rebecca Jansen APRN.CNP - 11/19/2024 8:43 AM EST Please let patient know her labs show improving lipids and hgba1c. Continue current dietary and lifestyle habits. [facility]03-03-2025 NoteHNO ID: [id number] Author: REBECCA JANSEN APRN.CNP Service: ? Author Type: Nurse Practitioner Type: Progress Notes Filed: 11/29/2024 08:20 Note Text: Chief Complaint Patient presents with: 6 Month Exam HPI Ronnie Yarbrough is a 74 year old male who presents here today for Above Complaints.. Patient presents for routine follow up. Reports he is seeing Dr. Gomez later this month to discuss spinal stimulator for pain. Follows with Dr. Mooney. Past medical history, appointments, medications, allergies reviewed. 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 Day: +12; Engrafted Protocol(s): 3422 1C Preparative regimen: melphalan Mobilization regimen: neupogen and plerixafor Stem cell source: apheresis CD34 cell dose (x10e6/kg): 5.14 Date of transplant: 06/15/2018 Bilateral leg edema 09/30/2022 Cancer of the skin, 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 Cervical spondylosis without myelopathy Chronic renal failure, stage 3a ([facility]) 03/30/2023 COPD (chronic obstructive pulmonary disease) ([facility]) 03/15/2021 Diabetic eye exam ([facility]) 09/09/2021 Last done 09/09/[address] Juve Reza Dilated aortic root ([facility]) 06/04/2023 Seeing [facility] Discoloration and thickening of nails both feet 10/06/2021 ED (erectile dysfunction) of organic origin 07/04/2022 Enlarged LA (left atrium) 06/04/2023 Seeing [facility] Essential hypertension 06/13/2018 -On lisinopril 10mg daily ( home med) -Will d/c for now given hyperkalemia . 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 --ppx ACV and cipro Increased weakness when ambulating 12/16/2022 Inflammatory polyarthropathy ([facility]) Leg DVT (deep venous thromboembolism), acute, left ([facility]) 01/02/2018 --acute DVT gastrocnemius found 12/13/2017 --continue apixaban till platelets <50K, last dose 06/21/2018 Living will on file at physician's office 09/30/2022 DPA: BREN () Low serum vitamin B12 04/22/2021 Lumbar spinal stenosis Medicare annual wellness visit, subsequent 10/06/2021 Medicare part B: Not able to find, Last done: 10/06/2021 Mixed hyperlipidemia 10/31/2006 --will hold atorvastatin d/t interactions with chemotherapy can resume at discharge Multiple myeloma ([facility]) 11/28/2017 Multiple myeloma in remission ([facility]) Obesity, Class I, BMI 30-34.9 10/01/2012 Osteoarthritis of both hands Pancytopenia due to chemotherapy ([facility]) 06/25/2018 --Transfuse PRBC and platelets per protocol --GCSF Peripheral autonomic neuropathy in disorders classified elsewhere 06/07/2005 Pulmonary hypertension, unspecified ([facility]) 10/23/2019 Spinal stenosis, lumbar region, without neurogenic claudication 11/13/2006 Tobacco abuse 12/27/2011 Quit 2012 Type 2 diabetes mellitus without complication, without long-term current use of insulin ([facility]) 04/12/2018 Venous insufficiency, peripheral 01/06/2014 Vitamin D deficiency 12/31/2014 Weakness of both lower extremities 12/16/2022 Previous Surgical History PAST SURGICAL HISTORY Procedure Laterality Date ANES ARTHROSCOPIC TOTAL SHOULDER REPLACEMENT Right 01/28/2013 [facility] - complete right shoulder replaceement ARTHRD ANT INTERBODY MIN DSC LUMBAR 2009 ARTHROTOMY W/MENISCUS REPAIR KNEE 1981 RIGHT ARTHROTOMY W/MENISCUS REPAIR KNEE 1982 LEFT ARTHRP KNE CONDYLEANDPLATU MEDIALANDLAT COMPARTMENTS Right 2007 Knee replacement, total BACK SURGERY HX COLONOSCOPY FLX DX W/COLLJ SPEC WHEN PFRMD 09/25/2012 normal colonoscopy - 10 year follow up EGD TRANSORAL BIOPSY SINGLE/MULTIPLE 09/25/2012 mild distal esophagitis HAND BILATERAL OP SURGERY 2021 trigger finger/ cyst removal JOINT REPLACEMENT HX Right shoulder [id number]-TOTAL REPLACE/BOTH COMPART Left 08/21/2023 [facility]IS W/O FACETEC FORAMOT/DSC 09/19 VRT SGM CRV 2007 Laminectomy, cervical PAST SURGICAL HISTORY OF Right 08/23/2021 carpal tunnel release with wrist arthrotomy and synovectomy PAST SURGICAL HISTORY OF Right 08/23/2021 ulnar nerve decompression PAST SURGICAL HISTORY OF 12/28/2022 bilateral revision lainectomy L1-L2, T11-T12 REMV CATARACT EXTRACAP,INSERT LENS Bilateral 11/2023 SKIN BIOPSY HX TONSILLECTOMY HX Family History FAMILY HISTORY Problem Relation Age of Onset None Mother Cancer Father PANCREAS Diabetes Father Diabetes Sister None Brother Diabetes Paternal Grandmother COPD No Family History Asth (more content not included)...[facility]03-03-2025 History of Present illness Narrative* Rebecca Jansen, ORTHOTIC TECHNICIAN.[facility] - 11/18/2024 7:42 AM EST Chief Complaint Patient presents with: 6 Month Exam HPI Ronnie Yarbrough is a 74 year old male who presents here today for Above Complaints.. Patient presents for routine follow up. Reports he is seeing Dr. Gomez later this month to discuss spinal stimulator for pain. Follows with Dr. Mooney. Past medical history, appointments, medications, allergies reviewed. 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 Day: +12; Engrafted Protocol(s): 3422 1C Preparative regimen: melphalan Mobilization regimen: neupogen and plerixafor Stem cell source: apheresis CD34 cell dose (x10e6/kg): 5.14 Date of transplant: 06/15/2018 Bilateral leg edema 09/30/2022 Cancer of the skin, 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 Cervical spondylosis without myelopathy Chronic renal failure, stage 3a ([facility]) 03/30/2023 COPD (chronic obstructive pulmonary disease) ([facility]) 03/15/2021 Diabetic eye exam ([facility]) 09/09/2021 Last done 09/09/[address] Juve Reza Dilated aortic root ([facility]) 06/04/2023 Seeing [facility] Discoloration and thickening of nails both feet 10/06/2021 ED (erectile dysfunction) of organic origin 07/04/2022 Enlarged LA (left atrium) 06/04/2023 Seeing [facility] Essential hypertension 06/13/2018 -On lisinopril 10mg daily ( home med) -Will d/c for now given hyperkalemia . 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 --ppx ACV and cipro Increased weakness when ambulating 12/16/2022 Inflammatory polyarthropathy ([facility]) Leg DVT (deep venous thromboembolism), acute, left ([facility]) 01/02/2018 --acute DVT gastrocnemius found 12/13/2017 --continue apixaban till platelets <50K, last dose 06/21/2018 Living will on file at physician's office 09/30/2022 DPA: BREN () Low serum vitamin B12 04/22/2021 Lumbar spinal stenosis Medicare annual wellness visit, subsequent 10/06/2021 Medicare part B: Not able to find, Last done: 10/06/2021 Mixed hyperlipidemia 10/31/2006 --will hold atorvastatin d/t interactions with chemotherapy can resume at discharge Multiple myeloma ([facility]) 11/28/2017 Multiple myeloma in remission ([facility]) Obesity, Class I, BMI 30-34.9 10/01/2012 Osteoarthritis of both hands Pancytopenia due to chemotherapy ([facility]) 06/25/2018 --Transfuse PRBC and platelets per protocol --GCSF Peripheral autonomic neuropathy in disorders classified elsewhere 06/07/2005 Pulmonary hypertension, unspecified ([facility]) 10/23/2019 Spinal stenosis, lumbar region, without neurogenic claudication 11/13/2006 Tobacco abuse 12/27/2011 Quit 2013 Type 2 diabetes mellitus without complication, without long-term current use of insulin ([facility]) 04/12/2018 Venous insufficiency, peripheral 01/06/2014 Vitamin D deficiency 12/31/2014 Weakness of both lower extremities 12/16/2022 Previous Surgical History PAST SURGICAL HISTORY Procedure Laterality Date ANES ARTHROSCOPIC TOTAL SHOULDER REPLACEMENT Right 01/28/2013 [facility] - complete right shoulder replaceement ARTHRD ANT INTERBODY MIN DSC LUMBAR 2009 ARTHROTOMY W/MENISCUS REPAIR KNEE 1981 RIGHT ARTHROTOMY W/MENISCUS REPAIR KNEE 1982 LEFT ARTHRP KNE CONDYLE&PLATU MEDIAL&LAT COMPARTMENTS Right 2007 Knee replacement, total BACK SURGERY HX COLONOSCOPY FLX DX W/COLLJ SPEC WHEN PFRMD 09/25/2012 normal colonoscopy - 10 year follow up EGD TRANSORAL BIOPSY SINGLE/MULTIPLE 09/25/2012 mild distal esophagitis HAND BILATERAL OP SURGERY 2021 trigger finger/ cyst removal JOINT REPLACEMENT HX Right shoulder [id number]-TOTAL REPLACE/BOTH COMPART Left 08/21/2023 [facility] W/O FACETEC FORAMOT/DSC 09/19 VRT SGM CRV 2007 Laminectomy, cervical PAST SURGICAL HISTORY OF Right 08/23/2021 carpal tunnel release with wrist arthrotomy and synovectomy PAST SURGICAL HISTORY OF Right 08/23/2021 ulnar nerve decompression PAST SURGICAL HISTORY OF 12/28/2022 bilateral revision lainectomy L1-L2, T11-T12 REMV CATARACT EXTRACAP,INSERT LENS Bilateral 11/2023 SKIN BIOPSY HX TONSILLECTOMY HX Family History FAMILY HISTORY Problem Relation Age of Onset None Mother Cancer Father PANCREAS Diabetes Father Diabetes Sister None Brother Diabetes Paternal Grandmother COPD No Family History Asthma No Family History Patient Allergies ALLERGIES No Known Allergies Current Medications Current Outpatient Medications on File Prior to Visit Medication Sig atorvastatin (LIPITOR) 40 mg tablet Take 1 tablet by mouth once daily. dulaglutide (TRULICITY) 3 mg/0.5 mL pen injector Inject 3 mg subcutaneously one time a week. Injectonce per week. Discard Pen After omeprazole (PRILOSEC) 40 mg capsule TAKE ONE CAPSULE BY MOUTH ONCE DAILY ON AN EMPTY STOMACH carvedilol (COREG) 12.5 mg tablet Take 1 tablet by mouth two times a day with meals. Per [facility] dapagliflozin propanediol (FARXIGA) 10 mg tablet Take 1 tablet by mouth once daily. Take one daily in the morning doxycycline monohydrate (MONODOX) 100 mg capsule TAKE 1 CAPSULE BY MOUTH TWICE DAILY FOR 28 DAYS oxyCODONE IR (ROXICODONE) 5 mg immediate release tablet TAKE ONE-HALF TO ONE TABLET BY MOUTH EVERY 4 HOURS NEEDED FOR PAIN amoxicillin-clavulanate potassium (AUGMENTIN) 875-125 mg per tablet Take 1 tablet by mouth every 12hours. losartan (COZAAR) 25 mg tablet Take 0.5 tablets by mouth once daily. Magnesium Oxide 250 mg magnesium tab Take two in the AM and one in the PM. metFORMIN (GLUCOPHAGE) 1,000 mg tablet Take 1 tablet by mouth two times a day with meals. torsemide (DEMADEX) 20 mg tablet Take 1 tablet by mouth two times a day. . mffysuyilxf-fofoxcsmk-yowklqqc (TRELEGY ELLIPTA) 100-62.5-25 mcg inhalation powder inhale 1 puff bymouth and INTO THE LUNGS once daily aspirin, enteric coated (ASPIRIN, ENTERIC COATED) 81 mg EC tablet Take 1 tablet by mouth once daily. Cholecalciferol, Vitamin D3, (VITAMIN D-3) 50 mcg (2,000 unit) cap Take 1 capsule by mouth once daily. terbinafine HCl (LAMISIL) 250 mg tablet Take 1 tablet by mouth once daily. cyanocobalamin (VITAMIN B-12) 1,000 mcg tab Take 1 tablet by mouth once daily. Calcium-Cholecalciferol, D3, 600 mg-5 mcg (200 unit) cap Take 1 capsule by mouth once daily. No current facility-administered medications on file prior to visit. Social History Social History Tobacco Use Smoking status: Former Current packs/day: 0.00 Average packs/day: 1 pack/day for 41.0 years (41.0 ttl pk-yrs) Types: Pipe, Cigarettes Start date: 1971 Quit date: 12/09/2011 Years since quittin.9 Smokeless tobacco: Never Tobacco comments: 1/4 pack of cigs; pipe smoker. None of either since cessation. No ETS in childhood home. Smoked up to one ppd Vaping Use Vaping status: Never Used Substance Use Topics Alcohol use: Yes Alcohol/week: 1.0 standard drink of alcohol Types: 1 Cans of beer per week Comment: seldom Drug use: Never Review of Symptoms REVIEW OF SYSTEMS SEE HPI EXAM: BP 130/69 Pulse (!) 52 Wt 95.4 kg (210 lb 5.1 oz) BMI 30.39 kg/m General Appearance: Well appearing, alert, in no acute distress, well-hydrated, well nourished.. Lungs: Lungs clear to auscultation. No wheezing, rhonchi, rales.. Heart: RRR without murmur, gallop, or rubs. No ectopy. Peripheral Pulses: Normal. Health Maintenance List Lung Cancer Screening due on 07/31/2024 Advance Directive Discussion due on 09/18/2024 Colorectal Cancer Screening due on 10/17/2024 HbA1C due on 10/17/2024 RSV Vaccine(1 - Risk 60-74 years 1-dose series) due on 05/30/2025 Covid-19 Vaccine(7 - Moderna risk 2023- season) due on 12/30/2024 Dilated Retinal Exam due on 03/26/2025 Urine Albumin:Creatinine Ratio due on 04/16/2025 LDL Cholesterol due on 04/16/2025 Annual PCP Team Chronic Disease Visit due on 05/30/2025 Depression Screening due on 05/30/2025 Anxiety Screening due on 05/30/2025 BP Controlled (<130/80) due on 05/30/2025 Diabetic Foot Exam due on 07/02/2025 Serum Creatinine due on 11/04/2025 DTaP,Tdap,Td Vaccine(6 - Td or Tdap) due on 09/23/2029 Spirometry Completed Abdominal Aortic Aneurysm Screening Completed Influenza Vaccine Completed Shingrix Vaccine Completed Pneumococcal Vaccine: 50+ Completed Alpha-1 Antitrypsin Deficiency Screening Discontinued Hepatitis C Screening Discontinued Data reviewed Weight Weight 11/18/2024 210 lb 5.1 oz 05/30/2024 212 lb 05/27/2024 215 lb 9.6 oz 05/27/2024 214 lb 05/03/2024 211 lb 04/16/2024 211 lb 01/03/2024 215 lb 11/27/2023 222 lb 6.4 oz 11/01/2023 220 lb 10/10/2023 214 lb Last 5 Encounter BP Readings: Date: BP: 11/18/2024 130/69 05/30/2024 119/66 05/27/2024 128/72 05/27/2024 118/70 05/03/2024 115/65 ASSESSMENT/PLAN: 1. Advanced directives, counseling/discussion - ICD9: V65.49, ICD10: Z71.89 (primary diagnosis) -Reviewed 2. Multiple myeloma in remission (HCC) - ICD9: 203.01, ICD10: C90.01 -Follows with oncology 3. H/O autologous stem cell transplant (HCC) - ICD9: V42.82, ICD10: Z94.84 -Follows with oncology 4. Pulmonary arterial hypertension (HCC) - ICD9: 416.8, ICD10: I27.21 -Follows with cardiology at [facility] 5. Chronic obstructive pulmonary disease, unspecified COPD type (HCC) - ICD9: 496, ICD10: J44.9 -Continue current medication -Stable 6. Atrial fibrillation, unspecified type (HCC) - ICD9: 427.31, ICD10: I48.91 -Follows with cardiology at [facility] 7. Inflammatory polyarthropathy (HCC) - ICD9: 714.9, ICD10: M06.4 - 8. Type 2 diabetes mellitus with stage 3a chronic kidney disease, without long- term current use of insulin (HCC) - ICD9: 250.40, 585.3, ICD10: E11.22, N18.31 - Control undetermined, due for labs 9. Screening for colon cancer - ICD9: V76.51, ICD10: Z12.11 - IMMUNOCHEMICAL FECAL OCCULT BLOOD TEST 10. Encounter for screening for lung cancer - ICD9: V76.0, ICD10: Z12.2 - CONSULT LUNG CANCER SCREENING CLINIC 11. Type 2 diabetes mellitus without complication, without long-term current use of insulin (HCC) -ICD9: 250.00, ICD10: E11.9 - Control undetermined, due for labs 12. Paroxysmal atrial fibrillation (HCC) - ICD9: 427.31, ICD10: I48.0 --Follows with cardiology at [facility] 13. Essential hypertension - ICD9: 401.9, ICD10: I10 - Controlled - Continue current medications - Recommend home blood pressure monitoring, to bring results to next visit - Encouraged sodium restriction, DASH or Mediterranean diet - Recommend regular aerobic exercise 14. Mixed hyperlipidemia - ICD9: 272.2, ICD10: E78.2 - Control undetermined, due for labs 15. Gastroesophageal reflux disease, unspecified whether esophagitis present - ICD9: 530.81, ICD10:K21.9 - Continue treatment with Prilosec 40 mg QD 16. Spinal stenosis, lumbar region, without neurogenic claudication - ICD9: 724.02, ICD10: M48.061 -Seeing Dr. Gomez later this month for spinal stimulator 17. Obesity, Class I, BMI 30-34.9 - ICD9: 278.00, ICD10: E66.811 -Weight stable Rebecca Jansen APRN.[employer] documented in [facility] encounter[facility] Telephone encounter Note * Telephone Encounter - Lillian Flanagan - 11/12/2024 9:19 AM EST LVM for pt to call and schedule 4 MO OV and Myeloma labs week prior. Lillian Flanagan [facility]02-25-2025 Miscellaneous Notes* Telephone Encounter - Lillian Flanagan - 11/12/2024 9:19 AM EST LVM for pt to call and schedule 4 MO OV and Myeloma labs week prior. Lillian Flanagan * Telephone Encounter - Murray Mooney MD - 11/12/2024 8:49 AM EST Called pt reviewed myeloma labs. Will recheck in 4 months. Murray Mooney MD November 12, 2024 documented in this encounterSam[facility]02-[facility]25 Telephone encounter Note * Telephone Encounter - Murray Mooney MD - 11/12/2024 8:49 AM EST Called pt reviewed myeloma labs. Will recheck in 4 months. Murray Mooney MD November 12, 2024 [facility]01-15-2025 Telephone encounter Note* Telephone Encounter - Ovidio Vincent MD - 10/02/2024 5:06 PM EST The following approved medication requests have been transmitted electronically. Requested Prescriptions Signed Prescriptions Disp Refills dulaglutide (TRULICITY) 3 mg/0.5 mL pen injector 12 Each 1 Sig: Inject 3 mg subcutaneously one time a week. Inject once per week. Discard Pen After Authorizing Provider: OVIDIO VINCENT MD [facility]01-15-2025 Miscellaneous Notes* Telephone Encounter - Ovidio Vincent MD - 10/02/2024 5:06 PM EST The following approved medication requests have been transmitted electronically. Requested Prescriptions Signed Prescriptions Disp Refills dulaglutide (TRULICITY) 3 mg/0.5 mL pen injector 12 Each 1 Sig: Inject 3 mg subcutaneously one time a week. Inject once per week. Discard Pen After Authorizing Provider: OVIDIO VINCENT MD * Telephone Encounter - Slime Hernandez LPN - 10/02/2024 2:50 PM EST Prescription Refill Information The patient has been identified by name and date of : Yes Caregiver verified no other encounters exist for this prescription request: Yes Caregiver confirmed with patient/requestor that no other refills are due, in the near future, with this provider at this time: Yes The last office visit in the department: 05/30/24 Does the patient have a future office visit with this provider/department: Yes Requested Prescriptions Pending Prescriptions Disp Refills dulaglutide (TRULICITY) 3 mg/0.5 mL pen injector 12 Each 1 Sig: Inject 3 mg subcutaneously one time a week. Inject once per week. Discard Pen After Slime Hernandez LPN October 02, 2024 2:51 PM documented in [facility] Telephone encounter Note * Telephone Encounter - Ovidio Vincent MD - 10/02/2024 5:05 PM EST The following approved medication requests have been transmitted electronically. Requested Prescriptions Signed Prescriptions Disp Refills atorvastatin (LIPITOR) 40 mg tablet 90 tablet 1 Sig: Take 1 tablet by mouth once daily. Authorizing Provider: OVIDIO VINCENT MD [facility]01-15-2025 Miscellaneous Notes* Telephone Encounter - Ovidio Vincent MD - 10/02/2024 5:05 PM EST The following approved medication requests have been transmitted electronically. Requested Prescriptions Signed Prescriptions Disp Refills atorvastatin (LIPITOR) 40 mg tablet 90 tablet 1 Sig: Take 1 tablet by mouth once daily. Authorizing Provider: OVIDIO VINCENT MD * Telephone Encounter - Madison Hyde LPN - 10/02/2024 2:47 PM EST Prescription Refill Information The patient has been identified by name and date of : Yes Caregiver verified no other encounters exist for this prescription request: Yes Caregiver confirmed with patient/requestor that no other refills are due, in the near future, with this provider at this time: Yes The last office visit in the department: 05/30/24 Does the patient have a future office visit with this provider/department: Yes 11/18/24 Requested Prescriptions Pending Prescriptions Disp Refills atorvastatin (LIPITOR) 40 mg tablet 90 tablet 1 Sig: Take 1 tablet by mouth once daily. Madison Hyde LPN October 02, 2024 2:48 PM documented in this encounterSam[facility] Telephone encounter Note * Telephone Encounter - Slime Hernandez LPN - 10/02/2024 2:50 PM EST Prescription Refill Information The patient has been identified by name and date of : Yes Caregiver verified no other encounters exist for this prescription request: Yes Caregiver confirmed with patient/requestor that no other refills are due, in the near future, with this provider at this time: Yes The last office visit in the department: 05/30/24 Does the patient have a future office visit with this provider/department: Yes Requested Prescriptions Pending Prescriptions Disp Refills dulaglutide (TRULICITY) 3 mg/0.5 mL pen injector 12 Each 1 Sig: Inject 3 mg subcutaneously one time a week. Inject once per week. Discard Pen After Slime Hernandez LPN October 02, 2024 2:51 PM [facility]01-15-2025 Telephone encounter Note* Telephone Encounter - Madison Hyde LPN - 10/02/2024 2:47 PM EST Prescription Refill Information The patient has been identified by name and date of : Yes Caregiver verified no other encounters exist for this prescription request: Yes Caregiver confirmed with patient/requestor that no other refills are due, in the near future, with this provider at this time: Yes The last office visit in the department: 05/30/24 Does the patient have a future office visit with this provider/department: Yes 11/18/24 Requested Prescriptions Pending Prescriptions Disp Refills atorvastatin (LIPITOR) 40 mg tablet 90 tablet 1 Sig: Take 1 tablet by mouth once daily. Madison Hyde LPN October 02, 2024 2:48 PM [facility]01-14-2025 NoteHNO ID: [id number] Author: REBECCA CHEEK MA Service: ? Author Type: Locomotive Crane Engineer Type: Progress Notes Filed: 10/01/2024 13:25 Note Text: POPULATION HEALTH NAVIGATION OUTREACH Action/FYI Patient advised that labs/fobt will be addressed at upcoming OV November of 2024 with PCP team. Reminded patient that last eye exam was 03/26/24 and he may want to call soon to get that scheduled as sometimes those appointments book out. Reason for Outreach Returned Call/MyChart Patient Contacted: Spoke to patient/parent/or legal guardian Patient identified by name and date of : Yes Returned call/MyChart actions taken: No action required Navigation Signature: Rebecca Cheek MA October 01, 2024 1:22 [facility]01-14-2025 NoteHNO ID: [id number] Author: ADONIS THEODORE MA Service: ? Author Type: Locomotive Crane Engineer Type: Progress Notes Filed: 10/01/2024 07:34 Note Text: POPULATION HEALTH NAVIGATION OUTREACH Action/FYI GENE result received by fax from Dr. Juve Reza. Exam date 03/26/24. Result scanned and Health Maintenance updated.[facility]01-14-2025 History of Present illness Narrative* Adonis Theodore MA - 10/01/2024 7:29 AM EST POPULATION HEALTH NAVIGATION OUTREACH Action/FYI GENE result received by fax from Dr. Juve Reza. Exam date 03/26/24. Result scanned and Health Maintenance updated. documented in this encounterSam[facility]01-[facility]-2025 NoteHNO ID: [id number] Author: ADONIS THEODORE MA Service: ? Author Type: Locomotive Crane Engineer Type: Progress Notes Filed: 10/01/2024 07:27 Note Text: POPULATION HEALTH NAVIGATION OUTREACH GENE result received by fax from Dr. Juve Reza. Exam date 03/26/24. Result scanned and Health Maintenance updated. Adonis Theodore Population Health Navigator [facility]01-13-2025 NoteHNO ID: [id number] Author: REBECCA CHEEK MA Service: ? Author Type: Locomotive Crane Engineer Type: Progress Notes Filed: 09/30/2024 14:44 Note Text: POPULATION HEALTH NAVIGATION OUTREACH Action/FYI Provider responded and declined labs. KED is calendar year and addressed as such. FOBT was due this month per Navigation Signature: Rebecca Cheek MA September 30, 2024 2:42 [facility]01-13-2025 History of Present illness Narrative* Rebecca Cheek MA - 09/30/2024 2:42 PM EST POPULATION HEALTH NAVIGATION OUTREACH Action/FYI Provider responded and declined labs. KED is calendar year and addressed as such. FOBT was due this month per Navigation Signature: Rebecca Cheek MA September 30, 2024 2:42 PM * Ovidio Vincent MD - 09/30/2024 2:30 PM EST Patient does not need a urine albumin until March and we address all labs when we see the patient. Which his next appt is not till November. I don't like when non clinical personal order labs and discuss getting them with the patient beforeasking us. I don't need the added work and aggravation. I don't need people telling me to address care Gaps. I already know this. This is why I do not do bulk orders. I spend too much time having to fix orders or add others because it's not complete. I cancelled the orders you place. please let patient know these will be addressed at his next appt. * Rebecca Cheek MA - 09/30/2024 11:16 AM EST POPULATION HEALTH NAVIGATION OUTREACH Action/FYI Patient is on [employer] list for below and needs appointment to address: Lung Cancer Screening Covid-19 Vaccine( season) Advance Directive Discussion Dilated Retinal Exam Colorectal Cancer Screening Hemoglobin A1C (%) Date Value 04/16/2024 7.0 08/04/2023 7.1 10/07/2021 6.7 Patient due for: Medicare Annual Wellness Visit - last 05/30/24 Controlling Blood Pressure Colorectal Cancer Screening - FOBT in past Diabetic Eye Exam - Dr Juve Grider KECasey MyCharimelda Active: Yes Spoke to patient. Scheduled 06/09/25 with PCP. Patient would like to do FOBT like in past - pended and sent to provider to review Diabetic Retinal Exam done end of last year at practice outside the clinic - Called to get report from last visit. A1C already pending for upcoming appointment -- KED pended for PCP review. HCC: Yes BP to be addressed at upcoming OV. Updated upcoming OV notes Please address due care gaps and HCCgap closure Reason for Outreach Care Gap/HCC or Scheduling Wellness Visits Care Gaps due: Medicare Annual Wellness Visit Controlling Blood Pressure Colorectal Cancer Screening Diabetic Eye Exam KED Patient Contacted: Spoke to patient/parent/or legal guardian Patient identified by name and : Yes Care Gap/HCC/Scheduling Wellness actions taken: Patient scheduled/pended orders: Medicare Annual Wellness Visit Colorectal Cancer Screening KED 11/04/2024 in [facility] with [facility] - LAB* 11/12/2024 in [place] [facility] with MURRAY MOONEY - 6 MO FOLLOW UP/LABS 11/12* 11/18/2024 in [facility] with REBECCA JANSEN - 6 month follow up, Please address due care gapsand HCC gap closure 11/[facility] with HAYDE WARD - 6 month follow up 06/09/2025 in [facility] with OVIDIO VINCENT - Medicare Wellness, Please address due care gap and HCC gap closure HCC related Navigation Signature: Rebecca Cheek MA September 30, 2024 11:18 AM documented in this encounterSam[facility]25 NoteHNO ID: [id number] Author: OVIDIO VINCENT MD Service: ? Author Type: Physician Type: Progress Notes Filed: 09/30/2024 14:44 Note Text: Patient does not need a urine albumin until March and we address all labs when we see the patient. Which his next appt is not till November. I don't like when non clinical personal order labs and discuss getting them with the patient before asking us. I don't need the added work and aggravation. I don't need people telling me to address care Gaps. I already know this. This is why I do not do bulk orders. I spend too much time having to fix orders or add others because it's not complete. I cancelled the orders you place. please let patient know these will be addressed at his next appt.[facility]01-13-2025 NoteHNO ID: [id number] Author: REBECCA CHEEK MA Service: ? Author Type: Locomotive Crane Engineer Type: Progress Notes Filed: 09/30/2024 11:49 Note Text: POPULATION HEALTH NAVIGATION OUTREACH Action/FYI Patient is on [employer] list for below and needs appointment to address: Lung Cancer Screening Covid-19 Vaccine( season) Advance Directive Discussion Dilated Retinal Exam Colorectal Cancer Screening Hemoglobin A1C (%) Date Value 04/16/2024 7.0 08/04/2023 7.1 10/07/2021 6.7 Patient due for: Medicare Annual Wellness Visit - last 05/30/24 Controlling Blood Pressure Colorectal Cancer Screening - FOBT in past Diabetic Eye Exam - Dr Juve Caba Active: Yes Spoke to patient. Scheduled 06/09/25 with PCP. Patient would like to do FOBT like in past - pended and sent to provider to review Diabetic Retinal Exam done end of last year at practice outside the clinic - Called to get report from last visit. A1C already pending for upcoming appointment -- VINCENT pended for PCP review. HCC: Yes BP to be addressed at upcoming OV. Updated upcoming OV notes Please address due care gaps and HCC gap closure Reason for Outreach Care Gap/HCC or Scheduling Wellness Visits Care Gaps due: Medicare Annual Wellness Visit Controlling Blood Pressure Colorectal Cancer Screening Diabetic Eye Exam KED Patient Contacted: Spoke to patient/parent/or legal guardian Patient identified by name and : Yes Care Gap/HCC/Scheduling Wellness actions taken: Patient scheduled/pended orders: Medicare Annual Wellness Visit Colorectal Cancer Screening KED 11/04/2024 in [facility] with [facility] - LAB* 11/12/2024 in [place] [facility] with MURRAY MOONEY - 6 MO FOLLOW UP/LABS 11/12* 11/18/2024 in [facility] with REBECCA JANSEN - 6 month follow up, Please address due care gaps and HCC gap closure 11/25/2024 in [facility] with HAYDE WARD - 6 month follow up 06/09/2025 in [facility] with OVIDIO VINCENT - Medicare Wellness, Please address due care gap and HCC gap closure HCC related Navigation Signature: Rebecca Cheek MA September 30, 2024 11:18 [facility]01-13-2025 NotePatient Outreach (NETNAV) RONNIE YARBROUGH I ([id number]) 1950 M Date Time Provider Department 09/30/24 REBECCA CHEEK NETKAYLA During your visit today, we recorded the following information about you: Rebecca Cheek MA 09/30/2024 11:49 AM Signed POPULATION HEALTH NAVIGATION OUTREACH Action/ Patient is on [employer] list for below and needs appointment to address: Lung Cancer Screening Covid-19 Vaccine( season) Advance Directive Discussion Dilated Retinal Exam Colorectal Cancer Screening Hemoglobin A1C (%) Date Value 04/16/2024 7.0 08/04/2023 7.1 10/07/2021 6.7 Patient due for: Medicare Annual Wellness Visit - last 05/30/24 Controlling Blood Pressure Colorectal Cancer Screening - FOBT in past Diabetic Eye Exam - Dr Juve Caba Active: Yes Spoke to patient. Scheduled 06/09/25 with PCP. Patient would like to do FOBT like in past - pended and sent to provider to review Diabetic Retinal Exam done end of last year at practice outside the clinic - Called to get report from last visit. A1C already pending for upcoming appointment -- KED pended for PCP review. HCC: Yes BP to be addressed at upcoming OV. Updated upcoming OV notes Please address due care gaps and HCC gap closure Reason for Outreach Care Gap/HCC or Scheduling Wellness Visits Care Gaps due: Medicare Annual Wellness Visit Controlling Blood Pressure Colorectal Cancer Screening Diabetic Eye Exam KECasey Patient Contacted: Spoke to patient/parent/or legal guardian Patient identified by name and : Yes Care Gap/HCC/Scheduling Wellness actions taken: Patient scheduled/pended orders: Medicare Annual Wellness Visit Colorectal Cancer Screening KED 11/04/2024 in [facility] with [facility] - LAB* 11/12/2024 in [place] [facility] with MURRAY MOONEY - 6 MO FOLLOW UP/LABS 11/12* 11/18/2024 in [facility] with REBECCA JANSEN - 6 month follow up, Please address due care gaps and HCC gap closure 11/25/2024 in [place] [facility] with HAYDE WARD - 6 month follow up 06/09/2025 in [facility] with OVIDIO VINCENT - Medicare Wellness, Please address due care gap and HCC gap closure HCC related Navigation Signature: Rebecca Cheek MA September 30, 2024 11:18 AM Ovidio Vincent MD 09/30/2024 2:44 PM Signed Patient does not need a urine albumin until March and we address all labs when we see the patient. Which his next appt is not till November. I don't like when non clinical personal order labs and discuss getting them with the patient before asking us. I don't need the added work and aggravation. I don't need people telling me to address care Gaps. I already know this. This is why I do not do bulk orders. I spend too much time having to fix orders or add others because it's not complete. I cancelled the orders you place. please let patient know these will be addressed at his next appt. Rebecca Cheek MA 09/30/2024 2:44 PM Signed POPULATION HEALTH NAVIGATION OUTREACH Action/FYI Provider responded and declined labs. KED is calendar year and addressed as such. FOBT was due this month per Navigation Signature: Rebecca Cheek MA September 30, 2024 2:42 PM Adonis Theodore MA 10/01/2024 7:27 AM Signed POPULATION HEALTH NAVIGATION OUTREACH GENE result received by fax from Dr. Juve Reza. Exam date 03/26/24. Result scanned and Health Maintenance updated. Adonis Theodore Population Health Navigator II Rebecca Cheek MA 10/01/2024 1:25 PM Addendum POPULATION HEALTH NAVIGATION OUTREACH Action/FYI Patient advised that labs/fobt will be addressed at upcoming OV November of 2024 with PCP team. Reminded patient that last eye exam was 03/26/24 and he may want to call soon to get that scheduled as sometimes those appointments book out. Reason for Outreach Returned Call/MyChart Patient Contacted: Spoke to patient/parent/or legal guardian Patient identified by name and date of : Yes Returned call/MyChart actions taken: No action required Navigation Signature: Rebecca Cheek MA October 01, 2024 1:22 PM Allergies As of Date: 09/30/2024 (No Known Allergies) Date Reviewed: 07/02/2024 Reviewed by: Shey Amador MA - Fully Assessed Reason for Visit: Population Health Navigation Outreach [3910] Cmt: [facility] Prescriptions as of 10/01/2024 - omeprazole (PRILOSEC) 40 mg capsule TAKE ONE CAPSULE BY MOUTH ONCE DAILY ON AN EMPTY STOMACH - carvedilol (COREG) 12.5 mg tablet Take 1 tablet by mouth two times a day with meals. Per [facility] - dapagliflozin propanediol (FARXIGA) 10 mg tablet Take 1 tablet by mouth once daily. Take one daily in the morning - doxycycline monohydrate (MONODOX) 100 mg capsule TAKE 1 CAPSULE BY MOUTH TWICE DAILY FOR 28 DAYS - oxyCODONE IR (ROXICODONE) 5 mg imme (more content not included)...[facility]12-17-2024 Telephone encounter Note* Telephone Encounter - Ovidio Vincent MD - 09/03/2024 11:38 AM EST The following approved medication requests have been transmitted electronically. Requested Prescriptions Signed Prescriptions Disp Refills omeprazole (PRILOSEC) 40 mg capsule 90 capsule 1 Sig: TAKE ONE CAPSULE BY MOUTH ONCE DAILY ON AN EMPTY STOMACH Authorizing Provider: OVIDIO VINCENT MD [facility]12-17-2024 Miscellaneous Notes* Telephone Encounter - Ovidio Vincent MD - 09/03/2024 11:38 AM EST The following approved medication requests have been transmitted electronically. Requested Prescriptions Signed Prescriptions Disp Refills omeprazole (PRILOSEC) 40 mg capsule 90 capsule 1 Sig: TAKE ONE CAPSULE BY MOUTH ONCE DAILY ON AN EMPTY STOMACH Authorizing Provider: OVIDIO VINCENT MD * Telephone Encounter - Shey Liu LPN - 09/03/2024 8:38 AM EST The patient has been identified by name and date of : Yes Caregiver verified no other encounters exist for this prescription request: Yes Caregiver confirmed with patient/requestor that no other refills are due, in the near future, with this provider at this time: Yes The last office visit in the department: 05/30/2024 Does the patient have a future office visit with this provider/department: Yes 11/18/2024 Requested Prescriptions Pending Prescriptions Disp Refills omeprazole (PRILOSEC) 40 mg capsule 90 capsule 1 Sig: TAKE ONE CAPSULE BY MOUTH ONCE DAILY ON AN EMPTY STOMACH Shey Liu LPN September 03, 2024 8:38 AM documented in this encounterSam[facility]12-[facility]-2024 Telephone encounter Note * Telephone Encounter - Shey Liu LPN - 09/03/2024 8:38 AM EST The patient has been identified by name and date of : Yes Caregiver verified no other encounters exist for this prescription request: Yes Caregiver confirmed with patient/requestor that no other refills are due, in the near future, with this provider at this time: Yes The last office visit in the department: 05/30/2024 Does the patient have a future office visit with this provider/department: Yes 11/18/2024 Requested Prescriptions Pending Prescriptions Disp Refills omeprazole (PRILOSEC) 40 mg capsule 90 capsule 1 Sig: TAKE ONE CAPSULE BY MOUTH ONCE DAILY ON AN EMPTY STOMACH Shey Liu LPN September 03, 2024 8:38 AM [facility]11-22-2024 NoteHNO ID: [id number] Author: SLIME HERNANDEZ LPN Service: ? Author Type: LICENSED NURSE Type: Progress Notes Filed: 08/09/2024 09:09 Note Text: Scan on 08/08/2024 5:09 PM by ProviderJustyn PA-C: [facility] History of Present illness Narrative* Slime Hernandez LPN - 08/09/2024 9:09 AM EST Scan on 08/08/2024 5:09 PM by ProviderJustyn PA-C: Consultation - Cardiology documented in this encounterSam[facility]11-18-2024 Telephone encounter Note * Telephone Encounter - Jennie Delaney RN - 08/05/2024 9:42 AM EST Patient notified of results. Patient verbalizes understanding. Jennie Delaney RN [facility]11-18-2024 Miscellaneous Notes* Telephone Encounter - Jennie Delaney RN - 08/05/2024 9:42 AM EST Patient notified of results. Patient verbalizes understanding. Jennie Delaney RN * Telephone Encounter - Ramu Alanis MA - 08/05/2024 9:39 AM EST Left message for patient to contact office. Ramu Alanis MA * Telephone Encounter - Ovidio Vincent MD - 08/05/2024 9:27 AM EST Let patient now his iron levels are ok and his CBC does not show anemia. His CRP that Leslye had ordered also came back normal. documented in this encounterSam[facility]11-18-2024 Telephone encounter Note * Telephone Encounter - Ramu Alanis MA - 08/05/2024 9:39 AM EST Left message for patient to contact office. Ramu Alanis MA [facility]11-18-2024 Telephone encounter Note* Telephone Encounter - Ovidio Vincent MD - 08/05/2024 9:27 AM EST Let patient now his iron levels are ok and his CBC does not show anemia. His CRP that Leslye had ordered also came back normal. [facility] History of Present illness Narrative* Marta Lui RN - 07/11/2024 2:15 PM EDT [facility] Telephonic Outreach Provider Action/FYI N/A 3rd attempt in this sequence Contacted for: Routine Telephonic Outreach Contact made with patient: Yes Patient identified by name and date of . Discussed care with patient Are you experiencing any new or worsening symptoms you need to talk about today? No Disease Specific Do you check your blood pressure at home? No Do you have new or worsening shortness of breath with activity? No Do you have new or worsening cough? No Do you have new or worsening wheezing? No Do you need to use your rescue (Albuterol) inhaler or nebulizer more often than normal? No Based on stitching machine feeder or offbearer, the following disposition is advised: No symptoms or symptoms present, not severe. Routed to: No Action Needed MACO Education Provided this Outreach: No Mr. Yarbrough feels comfortable reaching out to his medical team with any questions or concerns and is asking to be removed from [facility] home monitoring at this time. Marta Lui RN July 11, 2024 2:21 PM documented in this encounterSamaritan [facility] Center10-24-2024 NoteHNO ID: [id number] Author: MARTA LUI RN Service: ? Author Type: Registered Nurse Type: Progress Notes Filed: 07/11/2024 14:25 Note Text: [facility] Telephonic Outreach Provider Action/FYI N/A 3rd attempt in this sequence Contacted for: Routine Telephonic Outreach Contact made with patient: Yes Patient identified by name and date of . Discussed care with patient Are you experiencing any new or worsening symptoms you need to talk about today? No Disease Specific Do you check your blood pressure at home? No Do you have new or worsening shortness of breath with activity? No Do you have new or worsening cough? No Do you have new or worsening wheezing? No Do you need to use your rescue (Albuterol) inhaler or nebulizer more often than normal? No Based on stitching machine feeder or offbearer, the following disposition is advised: No symptoms or symptoms present, not severe. Routed to: No Action Needed MACO Education Provided this Outreach: No Mr. Yarbrough feels comfortable reaching out to his medical team with any questions or concerns and is asking to be removed from CDM home monitoring at this time. Marta Lui RN July 11, 2024 2:21 [facility]10-24-2024 Telephone encounter Note* Telephone Encounter - Slime Hernandez LPN - 07/11/2024 7:44 AM EDT Prescription Refill Information The patient has been identified by name and date of : Yes Caregiver verified no other encounters exist for this prescription request: Yes Caregiver confirmed with patient/requestor that no other refills are due, in the near future, with this provider at this time: Yes The last office visit in the department: 05/30/24 Does the patient have a future office visit with this provider/department: Yes Requested Prescriptions Pending Prescriptions Disp Refills dapagliflozin propanediol (FARXIGA) 10 mg tablet 90 tablet 1 Sig: Take 1 tablet by mouth once daily. Take one daily in the morning Slime Hernandez LPN July 11, 2024 7:44 AM [facility]10-24-2024 Miscellaneous Notes* Telephone Encounter - Slime Hernandez LPN - 07/11/2024 7:44 AM EDT Prescription Refill Information The patient has been identified by name and date of : Yes Caregiver verified no other encounters exist for this prescription request: Yes Caregiver confirmed with patient/requestor that no other refills are due, in the near future, with this provider at this time: Yes The last office visit in the department: 05/30/24 Does the patient have a future office visit with this provider/department: Yes Requested Prescriptions Pending Prescriptions Disp Refills dapagliflozin propanediol (FARXIGA) 10 mg tablet 90 tablet 1 Sig: Take 1 tablet by mouth once daily. Take one daily in the morning Slime Hernandez LPN July 11, 2024 7:44 AM [facility] NotePatient Outreach ([facility]) RONNIE YARBROUGH I ([id number]) 1950 M Date Time Provider Department 07/11/24 MARTA LUI During your visit today, we recorded the following information about you: Marta Lui RN 07/11/2024 2:25 PM Signed CDM Telephonic Outreach Provider Action/FYI N/A 3rd attempt in this sequence Contacted for: Routine Telephonic Outreach Contact made with patient: Yes Patient identified by name and date of . Discussed care with patient Are you experiencing any new or worsening symptoms you need to talk about today? No Disease Specific Do you check your blood pressure at home? No Do you have new or worsening shortness of breath with activity? No Do you have new or worsening cough? No Do you have new or worsening wheezing? No Do you need to use your rescue (Albuterol) inhaler or nebulizer more often than normal? No Based on stitching machine feeder or offbearer, the following disposition is advised: No symptoms or symptoms present, not severe. Routed to: No Action Needed MACO Education Provided this Outreach: No Mr. Yarbrough feels comfortable reaching out to his medical team with any questions or concerns and is asking to be removed from CDM home monitoring at this time. Marta Lui RN July 11, 2024 2:21 PM Allergies As of Date: 07/11/2024 (No Known Allergies) Date Reviewed: 07/02/2024 Reviewed by: Shey Amador MA - Fully Assessed Reason for Visit: Community Monitoring Outreach [Other] Cmt: 3rd attempt this sequence Telephonic Outreach CD Home Monitoring Prescriptions as of 07/12/2024 - dapagliflozin propanediol (FARXIGA) 10 mg tablet Take 1 tablet by mouth once daily. Take one daily in the morning - doxycycline monohydrate (MONODOX) 100 mg capsule TAKE 1 CAPSULE BY MOUTH TWICE DAILY FOR 28 DAYS - oxyCODONE IR (ROXICODONE) 5 mg immediate release tablet TAKE ONE-HALF TO ONE TABLET BY MOUTH EVERY 4 HOURS NEEDED FOR PAIN - amoxicillin-clavulanate potassium (AUGMENTIN) 875-125 mg per tablet Take 1 tablet by mouth every 12 hours. - losartan (COZAAR) 25 mg tablet Take 0.5 tablets by mouth once daily. - carvedilol (COREG) 6.25 mg tablet Take 2 tablets by mouth two times a day with meals. Per [facility] - atorvastatin (LIPITOR) 40 mg tablet Take 1 tablet by mouth once daily. - dulaglutide (TRULICITY) 3 mg/0.5 mL pen injector Inject 3 mg subcutaneously one time a week. Inject once per week. Discard Pen After - Magnesium Oxide 250 mg magnesium tab Take two in the AM and one in the PM. - metFORMIN (GLUCOPHAGE) 1,000 mg tablet Take 1 tablet by mouth two times a day with meals. - omeprazole (PRILOSEC) 40 mg capsule TAKE ONE CAPSULE BY MOUTH ONCE DAILY ON AN EMPTY STOMACH - torsemide (DEMADEX) 20 mg tablet Take 1 tablet by mouth two times a day. . - rspojyugrzy-clemqginz-huwxhkng (TRELEGY ELLIPTA) 100-62.5-25 mcg inhalation powder inhale 1 puff by mouth and INTO THE LUNGS once daily - aspirin, enteric coated (ASPIRIN, ENTERIC COATED) 81 mg EC tablet Take 1 tablet by mouth once daily. - Cholecalciferol, Vitamin D3, (VITAMIN D-3) 50 mcg (2,000 unit) cap Take 1 capsule by mouth once daily. - terbinafine HCl (LAMISIL) 250 mg tablet Take 1 tablet by mouth once daily. - cyanocobalamin (VITAMIN B-12) 1,000 mcg tab Take 1 tablet by mouth once daily. - Calcium-Cholecalciferol, D3, 600 mg-5 mcg (200 unit) cap Take 1 capsule by mouth once daily. Problem List As Of Date 07/11/2024 Noted Resolved Peripheral autonomic neuropathy in disorders cl*06/07/2005 Mixed hyperlipidemia [E78.2] 10/31/2006 Spinal stenosis, lumbar region, without neuroge*11/13/2006 GERD (gastroesophageal reflux disease) [K21.9] 12/27/2011 Tobacco abuse [Z72.0] 12/27/2011 10/01/2012 Special screening for malignant neoplasms, colo*09/06/2012 06/13/2018 Esophagitis, unspecified [K20.90] 09/25/2012 01/06/2014 Obesity, Class I, BMI 30-34.9 [E66.811] 10/01/2012 Venous insufficiency, peripheral [I87.2] 01/06/2014 11/25/2019 Acute bronchitis with chronic obstructive pulmo*12/30/2014 06/26/2017 Vitamin D deficiency [E55.9] 12/31/2014 Class 1 obesity due to excess calories with ser*06/26/2017 11/25/2019 Multiple myeloma (HCC) [C90.00] 11/28/2017 Adjustment insomnia [F51.02] 12/07/2017 05/14/2018 Multiple myeloma in remission (HCC) [C90.01] 12/07/2017 Leg DVT (deep venous thromboembolism), acute, l*01/02/2018 11/25/2019 Type 2 diabetes mellitus without complication, *04/12/2018 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, T38.0X5A]04/19/2018 05/14/2018 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 Poor foot care may lead to amputation of a foot or leg. As a person with diabetes, you are more vulnerable to foot problems, because diabetes can damage your nerves and reduce blood flow to your feet. Here are some diabetes foot care tips to follow: Wash and Dry Your Feet Daily Use mild soaps Use warm water Pat your skin dry; do not rub. Thoroughly dry your feet. After washing, use lotion on your feet to prevent cracking. Do not put lotion between your toes. Examine Your Feet Each Day Check the tops and bottoms of your feet. Have someone else look at your feet if you cannot see them. Check for dry, cracked skin. Look for blisters, cuts, scratches, or other sores. Check for redness, increased warmth, or tenderness when touching any area of your feet. Check for ingrown toenails, corns, and calluses. If you get a blister or sore from your shoes, do not pop it. Apply a bandage and wear a differentpair of shoes. Take Care of Your Toenails Cut toenails after bathing, when they are soft. Cut toenails straight across and smooth with a nail file. Avoid cutting into the corners of toes. Do not cut cuticles. If you have neuropathy (or decreased sensation in your feet) a printing press machine operator should always cut your toenails. Be Careful When Exercising Walk and exercise in comfortable shoes. Do not exercise when you have open sores on your feet. Protect Your Feet With Shoes and Socks Never go barefoot. Always protect your feet by wearing shoes or hard-soled slippers or footwear. Avoid shoes with high heels and pointed toes. Avoid shoes that expose your toes or heels (such as open-toed shoes or sandals). These types of shoes increase your risk for injury and potential infections. Try on new footwear with the type of socks you usually wear. Do not wear new shoes for more than an hour at a time. Change your socks daily. Look and feel inside your shoes before putting them on to make sure there are no foreign objects orrough areas. Avoid tight socks. Wear natural-fiber socks (cotton, wool, or a cotton-wool blend). Wear special shoes if your health care provider recommends them. Wear shoes/boots that will protect your feet from various weather conditions (cold, moisture, etc.). Make sure your shoes fit properly. If you have neuropathy (nerve damage), you may not notice that your shoes are too tight. Perform the footwear test described below. Footwear Test Use this simple test to see if your shoes fit correctly: Stand on a piece of paper. (Make sure you are standing and not sitting, because your foot changes shape when you stand.) Trace the outline of your foot. Trace the outline of your shoe. Compare the tracings: Is the shoe too narrow? Is your foot crammed into the shoe? The shoe should be at least 1/2 inch longer than your longest toe and as wide as your foot. Proper Shoe Choices The following types of shoes are best for people with diabetes Closed toes and heels Leather uppers without a seam inside At least 1/2 inch extra space at the end of your longest toe Inside of shoe should be soft with no rough areas Outer sole should be made of stiff material Shoes should be at least as wide as your feet Tips for Foot Care in Diabetes Don't wait to treat a minor foot problem if you have diabetes. Follow your health care provider's guidelines and first aid guidelines. Report foot injuries and infections to your health care provider immediately. Check water temperature with your elbow, not your foot. Do not use a heating pad on your feet. Do not cross your legs. Do not self-treat your corns, calluses, or other foot problems. Go to your health care provider or printing press machine operator to treat these conditions. documented in this encounter[facility]10-[facility]24 NoteHNO ID: [id number] Author: ESVIN MARCUS, ? Service: ? Author Type: Physician Type: Progress Notes Filed: 07/02/2024 09:12 Note Text: Last saw pcp: 05/30/24 Subjective: This 74 year old male presents to clinic for diabetic foot check. Patient has the following complaints: dystropphic teonails. Patient admits to being diabetic for 10 years now. Patient +B/T/N in feet at this time. Patient -pain in legs when walking. No other pedal complaints at this time. No change in medications or medical history since last visit. PAIN EVALUATION No data found in the last 1 encounters. 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 Day: +12; Engrafted Protocol(s): 3422 1C Preparative regimen: melphalan Mobilization regimen: neupogen and plerixafor Stem cell source: apheresis CD34 cell dose (x10e6/kg): 5.14 Date of transplant: 06/15/2018 Bilateral leg edema 09/30/2022 Cancer of the skin, 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 Cervical spondylosis without myelopathy Chronic renal failure, stage 3a ([facility]) 03/30/2023 COPD (chronic obstructive pulmonary disease) ([facility]) 03/15/2021 Diabetic eye exam ([facility]) 09/09/2021 Last done 09/09/[address] Juve Reza Dilated aortic root ([facility]) 06/04/2023 Seeing [facility]io Discoloration and thickening of nails both feet 10/06/2021 ED (erectile dysfunction) of organic origin 07/04/2022 Enlarged LA (left atrium) 06/04/2023 Seeing [facility]io Essential hypertension 06/13/2018 -On lisinopril 10mg daily ( home med) -Will d/c for now given hyperkalemia . 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 --ppx ACV and cipro Increased weakness when ambulating 12/16/2022 Inflammatory polyarthropathy ([facility]) Leg DVT (deep venous thromboembolism), acute, left ([facility]) 01/02/2018 --acute DVT gastrocnemius found 12/13/2017 --continue apixaban till platelets <50K, last dose 06/21/2018 Living will on file at physician's office 09/30/2022 DPA: BREN () Low serum vitamin B12 04/22/2021 Lumbar spinal stenosis Medicare annual wellness visit, subsequent 10/06/2021 Medicare part B: Not able to find, Last done: 10/06/2021 Mixed hyperlipidemia 10/31/2006 --will hold atorvastatin d/t interactions with chemotherapy can resume at discharge Multiple myeloma ([facility]) 11/28/2017 Multiple myeloma in remission ([facility]) Obesity, Class I, BMI 30-34.9 10/01/2012 Osteoarthritis of both hands Pancytopenia due to chemotherapy ([facility]) 06/25/2018 --Transfuse PRBC and platelets per protocol --GCSF Peripheral autonomic neuropathy in disorders classified elsewhere 06/07/2005 Pulmonary hypertension, unspecified ([facility]) 10/23/2019 Spinal stenosis, lumbar region, without neurogenic claudication 11/13/2006 Tobacco abuse 12/27/2011 Quit 2012 Type 2 diabetes mellitus without complication, without long-term current use of insulin ([facility]) 04/12/2018 Venous insufficiency, peripheral 01/06/2014 Vitamin D deficiency 12/31/2014 Weakness of both lower extremities 12/16/2022 Current Outpatient Medications Medication Sig oxyCODONE IR (ROXICODONE) 5 mg immediate release tablet TAKE ONE-HALF TO ONE TABLET BY MOUTH EVERY 4 HOURS NEEDED FOR PAIN losartan (COZAAR) 25 mg tablet Take 0.5 tablets by mouth once daily. carvedilol (COREG) 6.25 mg tablet Take 2 tablets by mouth two times a day with meals. Per [facility] atorvastatin (LIPITOR) 40 mg tablet Take 1 tablet by mouth once daily. dulaglutide (TRULICITY) 3 mg/0.5 mL pen injector Inject 3 mg subcutaneously one time a week. Inject once per week. Discard Pen After Magnesium Oxide 250 mg magnesium tab Take two in the AM and one in the PM. metFORMIN (GLUCOPHAGE) 1,000 mg tablet Take 1 tablet by mouth two times a day with meals. omeprazole (PRILOSEC) 40 mg capsule TAKE ONE CAPSULE BY MOUTH ONCE DAILY ON AN EMPTY STOMACH torsemide (DEMADEX) 20 mg tablet Take 1 tablet by mouth two times a day. . dapagliflozin propanediol (FARXIGA) 10 mg tablet Take 1 tablet by mouth once daily. Take one daily in the morning ogwodpterrv-rlfjagqyd-dtyamngg (TRELEGY ELLIPTA) 100-62.5-25 mcg inhalation powder inhale 1 puff by mouth and INTO THE BAMBI (more content not included)... [facility]10-15-2024 History of Present illness Narrative* Esvin Marcus - 07/02/2024 8:47 AM EDT Last saw pcp: 05/30/24 Subjective: This 74 year old male presents to clinic for diabetic foot check. Patient has the following complaints: dystropphic teonails. Patient admits to being diabetic for 10 years now. Patient +B/T/N in feet at this time. Patient - pain in legs when walking. No other pedal complaints at this time. No change in medications or medical history since last visit. PAIN EVALUATION No data found in the last 1 encounters. 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 Day: +12; Engrafted Protocol(s): 3422 1C Preparative regimen: melphalan Mobilization regimen: neupogen and plerixafor Stem cell source: apheresis CD34 cell dose (x10e6/kg): 5.14 Date of transplant: 06/15/2018 Bilateral leg edema 09/30/2022 Cancer of the skin, 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 Cervical spondylosis without myelopathy Chronic renal failure, stage 3a ([facility]) 03/30/2023 COPD (chronic obstructive pulmonary disease) ([facility]) 03/15/2021 Diabetic eye exam ([facility]) 09/09/2021 Last done 09/09/[address] Juve Reza Dilated aortic root ([facility]) 06/04/2023 Seeing Matthew Cardio Discoloration and thickening of nails both feet 10/06/2021 ED (erectile dysfunction) of organic origin 07/04/2022 Enlarged LA (left atrium) 06/04/2023 Seeing [facility] Essential hypertension 06/13/2018 -On lisinopril 10mg daily ( home med) -Will d/c for now given hyperkalemia . 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 --ppx ACV and cipro Increased weakness when ambulating 12/16/2022 Inflammatory polyarthropathy ([facility]) Leg DVT (deep venous thromboembolism), acute, left ([facility]) 01/02/2018 --acute DVT gastrocnemius found 12/13/2017 --continue apixaban till platelets <50K, last dose 06/21/2018 Living will on file at physician's office 09/30/2022 DPA: BREN () Low serum vitamin B12 04/22/2021 Lumbar spinal stenosis Medicare annual wellness visit, subsequent 10/06/2021 Medicare part B: Not able to find, Last done: 10/06/2021 Mixed hyperlipidemia 10/31/2006 --will hold atorvastatin d/t interactions with chemotherapy can resume at discharge Multiple myeloma ([facility]) 11/28/2017 Multiple myeloma in remission ([facility]) Obesity, Class I, BMI 30-34.9 10/01/2012 Osteoarthritis of both hands Pancytopenia due to chemotherapy ([facility]) 06/25/2018 --Transfuse PRBC and platelets per protocol --GCSF Peripheral autonomic neuropathy in disorders classified elsewhere 06/07/2005 Pulmonary hypertension, unspecified ([facility]) 10/23/2019 Spinal stenosis, lumbar region, without neurogenic claudication 11/13/2006 Tobacco abuse 12/27/2011 Quit 2013 Type 2 diabetes mellitus without complication, without long-term current use of insulin (HCC) 04/12/2018 Venous insufficiency, peripheral 01/06/2014 Vitamin D deficiency 12/31/2014 Weakness of both lower extremities 12/16/2022 Current Outpatient Medications Medication Sig oxyCODONE IR (ROXICODONE) 5 mg immediate release tablet TAKE ONE-HALF TO ONE TABLET BY MOUTH EVERY 4 HOURS NEEDED FOR PAIN losartan (COZAAR) 25 mg tablet Take 0.5 tablets by mouth once daily. carvedilol (COREG) 6.25 mg tablet Take 2 tablets by mouth two times a day with meals. Per [facility] atorvastatin (LIPITOR) 40 mg tablet Take 1 tablet by mouth once daily. dulaglutide (TRULICITY) 3 mg/0.5 mL pen injector Inject 3 mg subcutaneously one time a week. Injectonce per week. Discard Pen After Magnesium Oxide 250 mg magnesium tab Take two in the AM and one in the PM. metFORMIN (GLUCOPHAGE) 1,000 mg tablet Take 1 tablet by mouth two times a day with meals. omeprazole (PRILOSEC) 40 mg capsule TAKE ONE CAPSULE BY MOUTH ONCE DAILY ON AN EMPTY STOMACH torsemide (DEMADEX) 20 mg tablet Take 1 tablet by mouth two times a day. . dapagliflozin propanediol (FARXIGA) 10 mg tablet Take 1 tablet by mouth once daily. Take one daily in the morning eegweljsqml-dcvwbyvaq-uvtvakku (TRELEGY ELLIPTA) 100-62.5-25 mcg inhalation powder inhale 1 puff bymouth and INTO THE LUNGS once daily aspirin, enteric coated (ASPIRIN, ENTERIC COATED) 81 mg EC tablet Take 1 tablet by mouth once daily. Cholecalciferol, Vitamin D3, (VITAMIN D-3) 50 mcg (2,000 unit) cap Take 1 capsule by mouth once daily. terbinafine HCl (LAMISIL) 250 mg tablet Take 1 tablet by mouth once daily. cyanocobalamin (VITAMIN B-12) 1,000 mcg tab Take 1 tablet by mouth once daily. Calcium-Cholecalciferol, D3, 600 mg-5 mcg (200 unit) cap Take 1 capsule by mouth once daily. doxycycline monohydrate (MONODOX) 100 mg capsule TAKE 1 CAPSULE BY MOUTH TWICE DAILY FOR 28 DAYS amoxicillin-clavulanate potassium (AUGMENTIN) 875-125 mg per tablet Take 1 tablet by mouth every 12hours. No current facility-administered medications for this visit. ALLERGIES No Known Allergies PAST SURGICAL HISTORY Procedure Laterality Date ANES ARTHROSCOPIC TOTAL SHOULDER REPLACEMENT Right 01/28/2013 [facility] - complete right shoulder replaceement ARTHRD ANT INTERBODY MIN DSC LUMBAR 2009 ARTHROTOMY W/MENISCUS REPAIR KNEE 1981 RIGHT ARTHROTOMY W/MENISCUS REPAIR KNEE 1982 LEFT ARTHRP KNE CONDYLE&PLATU MEDIAL&LAT COMPARTMENTS Right 2007 Knee replacement, total BACK SURGERY HX COLONOSCOPY FLX DX W/COLLJ SPEC WHEN PFRMD 09/25/2012 normal colonoscopy - 10 year follow up EGD TRANSORAL BIOPSY SINGLE/MULTIPLE 09/25/2012 mild distal esophagitis HAND BILATERAL OP SURGERY 2021 trigger finger/ cyst removal JOINT REPLACEMENT HX Right shoulder [id number] REPLACE/BOTH COMPART Left 08/21/2023 [facility] W/O FACETEC FORAMOT/DSC 09/19 VRT SGM CRV 2007 Laminectomy, cervical PAST SURGICAL HISTORY OF Right 08/23/2021 carpal tunnel release with wrist arthrotomy and synovectomy PAST SURGICAL HISTORY OF Right 08/23/2021 ulnar nerve decompression PAST SURGICAL HISTORY OF 12/28/2022 bilateral revision lainectomy L1-L2, T11-T12 REMV CATARACT EXTRACAP,INSERT LENS Bilateral 11/2023 SKIN BIOPSY HX TONSILLECTOMY HX FAMILY HISTORY Problem Relation Age of Onset None Mother Cancer Father PANCREAS Diabetes Father Diabetes Sister None Brother Diabetes Paternal Grandmother COPD No Family History Asthma No Family History Social History Tobacco Use Smoking status: Former Current packs/day: 0.00 Average packs/day: 1 pack/day for 41.0 years (41.0 ttl pk-yrs) Types: Pipe, Cigarettes Start date: 1971 Quit date: 12/09/2011 Years since quittin.5 Smokeless tobacco: Never Tobacco comments: 1/4 pack of cigs; pipe smoker. None of either since cessation. No ETS in childhood home. Smoked up to one ppd Vaping Use Vaping status: Never Used Substance Use Topics Alcohol use: Yes Alcohol/week: 1.0 standard drink of alcohol Types: 1 Cans of beer per week Comment: seldom Drug use: Never REVIEW OF SYSTEMS GENERAL: Negative for Malaise, significant weight loss, fever RESPIRATORY: Negative for cough, wheezing and shortness of breath CARDIOVASCULAR: Negative for chest pain, leg swelling and palpitations GI: Negative for abdominal discomfort, blood in stools or black stools and change in bowel habits : Negative for dysuria, frequency and incontinence MUSCULOSKELETAL: Negative for joint pain or swelling, back pain, and muscle pain. SKIN: Negative for lesions, rash, and itching. HEMATOLOGY/LYMPHOLOGY Negative for prolonged bleeding, bruising easily, and swollen nodes. ENDOCRINE: Negative for cold or heat intolerance, polyuria, polydipsia and goiter. NEURO: negative The remainder of the review of systems is noncontributory. Objective: Patient presents to clinic ambulating in [facility] Constitutional: Pt is a well developed 74 year old male who is alert, oriented, cooperative and in no apparent distress. Eyes: Following during examination. No redness or drainage. Respiratory: RR normal and nonlabored. Even breathing. No evidence of distress. Psychology: Patient is engaged during conversation. Normal affect and mood. Does not appear depressed or anxious. Vasc: DP and PT pulses are nonpalpable bilateral. CFT is less than 5 seconds bilateral. Skin temperature is warm to cool proximal to distal bilateral. There is mild edema or varicosities noted. Hair growth absent. Neuro: Protective sensation is absent to the foot and toes when tested with the 5.07 SWM bilateral.Vibratory sensation is absent at the hallux bilateral. +Significant neurological defecits. Derm: Inspection and palpation performed. Nails 1-5 b/l are discolored-yellow, thick, crumbly, dystrophic and with subungal debris. Skin is thin, dry, pallor. Hyperkeratosis noted to left halux. No ulceration NO ulcerations, scars, verruca or other lesions noted. Ortho: Ankle joint DF is decreased with the knee extended and decreased with knee flexed. No pain or crepitus noted. STJ, MTJ ROM are full and free of pain or crepitus. Muscle strength is 5/5 for dorsiflexors, plantarflexors, inverters, everters. Digital deformities include none. Assessment: (B35.1) Onychomycosis (primary encounter diagnosis) (E11.9) Type 2 diabetes mellitus without complication, without long-term current use of insulin ([facility]) (I73.9) PAD (peripheral artery disease) ([facility]) (L84) Callus Plan: 1. Patient was seen and evaluated. 2. Patient was instructed on the continued importance of diabetic foot care along with proper diet and keeping their blood sugar under control to prevent complications. Stressed the importance of avoiding barefoot walking, wearing good shoes and inspection of feet. Use lotion to feet dialy. Instructions given both oral and written. 3. Will check circulation via pvr 4. Toenails 1-5 b/l debrided in length and thickness. Q8 modifier We discussed the possible etiologies of discolored, dystrophic, and thickened nails including fungus, yeast, mold as well as in some instances, prior trauma, or mechanical causes such as repetitive microtrauma in shoe gear. We discussed topical medication for discolored toenails which has very low success but no major side effects. We discussed oral medication. Patient will need hepatic testing prior to use. Patient informed of risks associated with Lamisil. We discussed removal of toenails. Patient would like to proceed with debridement of nails. 5. Callus reduced with dremmel. Continue with lotion 6. F/u in 3 months Esvin Marcus DPM documented in this [facility]24 NoteHNO ID: [id number] Author: MARTA LUI RN Service: ? Author Type: Registered Nurse Type: Progress Notes Filed: 06/27/2024 14:34 Note Text: [facility] Telephonic Outreach Provider Action/FYI N/A 2nd attempt Contacted for: Routine Telephonic Outreach Contact made with patient: No, left message. Marta Lui RN June 27, 2024 2:34 [facility]10-10-2024 History of Present illness Narrative* Marta Lui RN - 06/27/2024 2:31 PM EDT [facility] Telephonic Outreach Provider Action/FYI N/A 2nd attempt Contacted for: Routine Telephonic Outreach Contact made with patient: No, left message. Marta Lui RN June 27, 2024 2:34 PM documented in this encounterSam[facility]10-10-2024 NotePatient Outreach ([facility]) DWIGHTRONNIE JAUREGUI I ([id number]) 1950 M Date Time Provider Department 06/27/24 [place] [facility] [place] visit today, we recorded the following information about you: Marta Lui RN 06/27/2024 2:34 PM Signed CDM Telephonic Outreach Provider Mahi/ANJU N/A 2nd attempt Contacted for: Routine Telephonic Outreach Contact made with patient: No, left message. Marta Lui RN June 27, 2024 2:34 PM Allergies As of Date: 06/27/2024 (No Known Allergies) Date Reviewed: 05/30/2024 Reviewed by: Ovidio Vincent MD - Fully Assessed Reason for Visit: Community Monitoring Outreach [Other] Cmt: 2nd attempt Telephonic Outreach CDM Home Monitoring Prescriptions as of 06/27/2024 - doxycycline monohydrate (MONODOX) 100 mg capsule TAKE 1 CAPSULE BY MOUTH TWICE DAILY FOR 28 DAYS - oxyCODONE IR (ROXICODONE) 5 mg immediate release tablet TAKE ONE-HALF TO ONE TABLET BY MOUTH EVERY 4 HOURS NEEDED FOR PAIN - amoxicillin-clavulanate potassium (AUGMENTIN) 875-125 mg per tablet Take 1 tablet by mouth every 12 hours. - losartan (COZAAR) 25 mg tablet Take 0.5 tablets by mouth once daily. - carvedilol (COREG) 6.25 mg tablet Take 2 tablets by mouth two times a day with meals. Per [facility] - atorvastatin (LIPITOR) 40 mg tablet Take 1 tablet by mouth once daily. - dulaglutide (TRULICITY) 3 mg/0.5 mL pen injector Inject 3 mg subcutaneously one time a week. Inject once per week. Discard Pen After - Magnesium Oxide 250 mg magnesium tab Take two in the AM and one in the PM. - metFORMIN (GLUCOPHAGE) 1,000 mg tablet Take 1 tablet by mouth two times a day with meals. - omeprazole (PRILOSEC) 40 mg capsule TAKE ONE CAPSULE BY MOUTH ONCE DAILY ON AN EMPTY STOMACH - torsemide (DEMADEX) 20 mg tablet Take 1 tablet by mouth two times a day. . - dapagliflozin propanediol (FARXIGA) 10 mg tablet Take 1 tablet by mouth once daily. Take one daily in the morning - ogszgmcnkmx-hnrqktege-cghxlfjf (TRELEGY ELLIPTA) 100-62.5-25 mcg inhalation powder inhale 1 puff by mouth and INTO THE LUNGS once daily - aspirin, enteric coated (ASPIRIN, ENTERIC COATED) 81 mg EC tablet Take 1 tablet by mouth once daily. - Cholecalciferol, Vitamin D3, (VITAMIN D-3) 50 mcg (2,000 unit) cap Take 1 capsule by mouth once daily. - terbinafine HCl (LAMISIL) 250 mg tablet Take 1 tablet by mouth once daily. - cyanocobalamin (VITAMIN B-12) 1,000 mcg tab Take 1 tablet by mouth once daily. - Calcium-Cholecalciferol, D3, 600 mg-5 mcg (200 unit) cap Take 1 capsule by mouth once daily. Problem List As Of Date 06/27/2024 Noted Resolved Peripheral autonomic neuropathy in disorders cl*06/07/2005 Mixed hyperlipidemia [E78.2] 10/31/2006 Spinal stenosis, lumbar region, without neuroge*11/13/2006 GERD (gastroesophageal reflux disease) [K21.9] 12/27/2011 Tobacco abuse [Z72.0] 12/27/2011 10/01/2012 Special screening for malignant neoplasms, colo*09/06/2012 06/13/2018 Esophagitis, unspecified [K20.90] 09/25/2012 01/06/2014 Obesity, Class I, BMI 30-34.9 [E66.811] 10/01/2012 Venous insufficiency, peripheral [I87.2] 01/06/2014 11/25/2019 Acute bronchitis with chronic obstructive pulmo*12/30/2014 06/26/2017 Vitamin D deficiency [E55.9] 12/31/2014 Class 1 obesity due to excess calories with ser*06/26/2017 11/25/2019 Multiple myeloma (HCC) [C90.00] 11/28/2017 Adjustment insomnia [F51.02] 12/07/2017 05/14/2018 Multiple myeloma in remission (HCC) [C90.01] 12/07/2017 Leg DVT (deep venous thromboembolism), acute, l*01/02/2018 11/25/2019 Type 2 diabetes mellitus without complication, *04/12/2018 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, T38.0X5A]04/19/2018 05/14/2018 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] 06/13/2018 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/13/2018 Bilateral lower extremity edema [R60.0] 06/13/2018 07/17/2018 Essential hypertension [I10] 06/13/2018 JOSE ENRIQUE (acute kidney injury) (HCC) [N17.9] 06/16/2018 06/18/2018 Hyperkalemia [E87.5] 06/18/2018 2018 Chemotherapy induced nausea and vomiting [R11.2*06/18/2018 07/02/2018 Difficulty coping [R45.89] 06/20/2018 06/26/2018 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) [D61.810]06/25/2018 Fall [W19.XXXA] 07/17/2018 11/25/2019 Acute on chronic systolic CHF (congestive heart*10/04/2019 11/25/2019 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] 10/04/2019 Shortness of breath [R06.02] 10/22/2019 11/25/2019 Chest pressure [R07.89] 10/23/2019 11/25/2019 Pulmonary hypertension, unspecified (HCC) [I27.*10/23/2019 Wheezing [R06.2] 10/23/2019 11/25/2019 Lung nodules [R91.8] 10/23/2019 Ex-smoker [Z87.891] 03/15/2021 COPD (chronic obstructive pulmonary disease) (H*03/15/2021 Allergic rhinitis [J30.9] 03/15/2021 Medication management [Z79.899] 03/15/2021 Cancer of the skin, basal cell [C44.91] 04/21/2021 Low serum vitamin B12 [E53.8] 08 (more content not included)...[facility]10-09-2024 Telephone encounter Note* Telephone Encounter - Chanelle Nolan RN - 06/26/2024 9:51 AM EDT Pt called and is notified of providers results and instructions. Pt voices understanding. He statesthey are back in [place], and he will come in to get lab work done. Chanelle Nolan RN [facility]10-09-[facility] Miscellaneous Notes* Telephone Encounter - Chanelle Nolan RN - 06/26/2024 9:51 AM EDT Pt called and is notified of providers results and instructions. Pt voices understanding. He statesthey are back in [place], and he will come in to get lab work done. Chanelle Nolan RN * Telephone Encounter - Leslye Winter PA-C - 06/26/2024 8:44 AM EDT Please find out when patient is back in [place]. The infectious disease specialist just got back to . They do not need to see him. It looks like they already cancelled the appointment. If still taking atb, can stop. I would like to get repeat labs once they are in [place]. Thanks. Leslye Winter PA-C documented in this encounterSam[facility]10-09-2024 Telephone encounter Note * Telephone Encounter - Leslye Winter PA-C - 06/26/2024 8:44 AM EDT Please find out when patient is back in [place]. The infectious disease specialist just got back to . They do not need to see him. It looks like they already cancelled the appointment. If still taking atb, can stop. I would like to get repeat labs once they are in [place]. Thanks. Leslye Winter PA-C [facility]09-26-2024 NoteHNO ID: [id number] Author: MARTA LUI RN Service: ? Author Type: Registered Nurse Type: Progress Notes Filed: 06/13/2024 12:04 Note Text: CD Telephonic Outreach Provider Action/FYI N/A Contacted for: Routine Telephonic Outreach AND SDOH screening for food insecurity and transportation Contact made with patient: No, left message. Spoke with spouse who states they are out in [place] currently. Requests a return call in 2 weeks. Marta Lui RN June 13, 2024 12:03 [facility]09-26-2024 History of Present illness Narrative* Marta Lui RN - 06/13/2024 12:00 PM EDT [facility] Telephonic Outreach Provider Mahi/ANJU N/A Contacted for: Routine Telephonic Outreach & SDOH screening for food insecurity and transportation Contact made with patient: No, left message. Spoke with spouse who states they are out in [place] currently. Requests a return call in 2 weeks. Marta Lui RN June 13, 2024 12:03 PM documented in this encounterSam[facility]itan [facility]09-26-2024 NotePatient Outreach ([facility]) RONNIE YARBROUGH I ([id number]) 1950 M Date Time Provider Department 06/13/24 MARTA LUI During your visit today, we recorded the following information about you: Marta Lui RN 06/13/2024 12:04 PM Signed CDM Telephonic Outreach Provider Mahi/ANJU N/A Contacted for: Routine Telephonic Outreach AND [facility] screening for food insecurity and transportation Contact made with patient: No, left message. Spoke with spouse who states they are out in [place] currently. Requests a return call in 2 weeks. Marta Lui RN June 13, 2024 12:03 PM Allergies As of Date: 06/13/2024 (No Known Allergies) Date Reviewed: 05/30/2024 Reviewed by: Ovidio Vincent MD - Fully Assessed Reason for Visit: Community Monitoring Outreach [Other] Cmt: Telephonic Outreach CD Home Monitoring Prescriptions as of 06/13/2024 - doxycycline monohydrate (MONODOX) 100 mg capsule TAKE 1 CAPSULE BY MOUTH TWICE DAILY FOR 28 DAYS - oxyCODONE IR (ROXICODONE) 5 mg immediate release tablet TAKE ONE-HALF TO ONE TABLET BY MOUTH EVERY 4 HOURS NEEDED FOR PAIN - amoxicillin-clavulanate potassium (AUGMENTIN) 875-125 mg per tablet Take 1 tablet by mouth every 12 hours. - losartan (COZAAR) 25 mg tablet Take 0.5 tablets by mouth once daily. - carvedilol (COREG) 6.25 mg tablet Take 2 tablets by mouth two times a day with meals. Per [facility] - atorvastatin (LIPITOR) 40 mg tablet Take 1 tablet by mouth once daily. - dulaglutide (TRULICITY) 3 mg/0.5 mL pen injector Inject 3 mg subcutaneously one time a week. Inject once per week. Discard Pen After - Magnesium Oxide 250 mg magnesium tab Take two in the AM and one in the PM. - metFORMIN (GLUCOPHAGE) 1,000 mg tablet Take 1 tablet by mouth two times a day with meals. - omeprazole (PRILOSEC) 40 mg capsule TAKE ONE CAPSULE BY MOUTH ONCE DAILY ON AN EMPTY STOMACH - torsemide (DEMADEX) 20 mg tablet Take 1 tablet by mouth two times a day. . - dapagliflozin propanediol (FARXIGA) 10 mg tablet Take 1 tablet by mouth once daily. Take one daily in the morning - puyawhuwtei-tcslvwtqc-dkupfbyc (TRELEGY ELLIPTA) 100-62.5-25 mcg inhalation powder inhale 1 puff by mouth and INTO THE LUNGS once daily - aspirin, enteric coated (ASPIRIN, ENTERIC COATED) 81 mg EC tablet Take 1 tablet by mouth once daily. - Cholecalciferol, Vitamin D3, (VITAMIN D-3) 50 mcg (2,000 unit) cap Take 1 capsule by mouth once daily. - terbinafine HCl (LAMISIL) 250 mg tablet Take 1 tablet by mouth once daily. - cyanocobalamin (VITAMIN B-12) 1,000 mcg tab Take 1 tablet by mouth once daily. - Calcium-Cholecalciferol, D3, 600 mg-5 mcg (200 unit) cap Take 1 capsule by mouth once daily. Problem List As Of Date 06/13/2024 Noted Resolved Peripheral autonomic neuropathy in disorders cl*06/07/2005 Mixed hyperlipidemia [E78.2] 10/31/2006 Spinal stenosis, lumbar region, without neuroge*11/13/2006 GERD (gastroesophageal reflux disease) [K21.9] 12/27/2011 Tobacco abuse [Z72.0] 12/27/2011 10/01/2012 Special screening for malignant neoplasms, colo*09/06/2012 06/13/2018 Esophagitis, unspecified [K20.90] 09/25/2012 01/06/2014 Obesity, Class I, BMI 30-34.9 [E66.9] 10/01/2012 Venous insufficiency, peripheral [I87.2] 01/06/2014 11/25/2019 Acute bronchitis with chronic obstructive pulmo*12/30/2014 06/26/2017 Vitamin D deficiency [E55.9] 12/31/2014 Class 1 obesity due to excess calories with ser*06/26/2017 11/25/2019 Multiple myeloma (HCC) [C90.00] 11/28/2017 Adjustment insomnia [F51.02] 12/07/2017 05/14/2018 Multiple myeloma in remission (HCC) [C90.01] 12/07/2017 Leg DVT (deep venous thromboembolism), acute, l*01/02/2018 11/25/2019 Type 2 diabetes mellitus without complication, *04/12/2018 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, T38.0X5A]04/19/2018 05/14/2018 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] 06/13/2018 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/13/2018 Bilateral lower extremity edema [R60.0] 06/13/2018 07/17/2018 Essential hypertension [I10] 06/13/2018 JOSE ENRIQUE (acute kidney injury) (HCC) [N17.9] 06/16/2018 06/18/2018 Hyperkalemia [E87.5] 06/18/2018 2018 Chemotherapy induced nausea and vomiting [R11.2*06/18/2018 07/02/2018 Difficulty coping [R45.89] 06/20/2018 06/26/2018 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) [D61.810]06/25/2018 Fall [W19.XXXA] 07/17/2018 11/25/2019 Acute on chronic systolic CHF (congestive heart*10/04/2019 11/25/2019 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] 10/04/2019 Shortness of breath [R06.02] 10/22/2019 11/25/2019 Chest pressure [R07.89] 10/23/2019 11/25/2019 Pulmonary hypertension, unspecified (HCC) [I27.*10/23/2019 Wheezing [R06.2] 10/23/2019 11/25/2019 Lung nodules [R91.8] 10/23/2019 Ex-smoker [Z87.891] 03/15/2021 COPD (chronic obstructive pulmonary disease) (H*03/15/2021 Allergic rhinitis [J30.9] (more content not included)...[facility]09-12-2024 Instructions* Patient Instructions* Ovidio Vincent MD - 05/30/2024 9:51 AM EDT Consider getting the RSV vaccine from a local pharmacy. Get labs for iron (non-fasting) on or after 06/28/2024. Please get labs done on or after prior to your next visit. Screening schedule The following prevention plan is recommended: Depression Screening Never done Anxiety Screening Never done RSV Vaccine(1 - 1-dose 60+ series) Never done Advance Directive Discussion due on 09/18/2023 Diabetic Foot Exam due on 09/30/2023 Covid-19 Vaccine( season) due on 05/19/2024 Influenza Vaccine(1) due on 05/19/2024 WHAT YOU CAN DO TO PREVENT FALLS Many falls can be prevented. By making some changes, you can lower your chances of falling. Four things YOU can do to prevent falls for you* and your caregiver 1. Begin a regular exercise program Exercise is one of the most important ways to lower your chances of falling. It makes you stronger and helps you feel better. Exercises that improve balance and coordination (like Shabbir Chi) are the most helpful. Lack of exercise leads to weakness and increases your chances of falling. Ask your doctor or health care provider about the best type of exercise program for you. 2. Have your health care provider review your medicines Have your doctor or pharmacist review all the medicines you take, even baco-qxw-lzzkjuh medicines. As you get older, the way medicines work in your body can change. Some medicines, or combinations of medicines, can make you sleepy or dizzy andcan cause you to fall. 3. Have your vision checked Have your eyes checked by an eye doctor at least once a year. You may be wearing the wrong glasses or have a condition like glaucoma or cataracts that limits your vision. Poor vision can increase your chances of falling. 4. Make your home safer About half of all falls happen at home. To make your home safer: Remove things you can trip over (like papers, books, clothes, and shoes) from stairs and places where you walk. Remove small throw rugs or use double-sided tape to keep the rugs from slipping. Keep items you use often in cabinets you can reach easily without using a step stool. Have grab bars put in next to your toilet and in the tub or shower. Use non-slip mats in the bathtub and on shower floors. Improve the lighting in your home. As you get older, you need brighter lights to see well. Hang light-weight curtains or shades to reduce glare. Have handrails and lights put in on all staircases. Wear shoes both inside and outside the house. Avoid going barefoot or wearing slippers. For more information, contact: Centers for Disease Control and Prevention www.cdc.gov/injury * This information may not apply if you have certain medical conditions. documented in this encounterSam[facility]09-12-2024 History of Present illness Narrative* Ovidio Vincent MD - 05/30/2024 9:20 AM EDT Images from the original note were not included. Ronnie Yarbrough is a 73 year old male here for a Medicare wellness visit. Medicare Health Risk Assessment General Health Good Exercise: Minutes/Day 30 min Exercise: Days/Week 5 days Alcohol: Daily Use Monthly or less Alcohol: Drinks/Day Patient does not drink Alcohol: 6 or more drinks Never Feel off balance Yes Concerns: Teeth/Dentures No Concerns: Sexual function No Troubled by feelings None of the above Frequency: Eating healthy diet More than half the days ADLs requiring help None of the above Safety precautions in home/vehicle Yes Smoke, vape, chews tobacco No Difficulty hearing Yes Difficulty seeing No Current Providers Specialists: I have reviewed specialist-related care of the patient in the medical record. 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 Ward[facility] Medical/Family history review Reviewed and updated problem list, medical/surgical/family/social history, medications, and allergies. Opioid use review Opioid Medications (last 90 days) 05/15/2024 00:00 Opioid Medications oxycodone HCl TAKE ONE-HALF TO ONE TABLET BY MOUTH EVERY 4 HOURS NEEDED FOR PAIN (5 mg tab) Details Patient-reported medication Prescribed No opioid use on file in the last 90 days Does patient have risk factors for opioid abuse? No Pain overview Current pain concerns and treatment plan reviewed. Patient under the care of a specialist. Anxiety/Depression screening Recommendation: no further intervention at this time Cognitive screening Mini Cog Score: 4 Cognitive screening reviewed and No further action needed (score 3-5). Functional Observation Was the patient's Timed Up & Go test unsteady or ? 12 seconds? No Advance Care Planning Surrogate decision maker documented and/or advance directives scanned in chart Measurements BP 119/66 Pulse 89 Ht 177.2 cm (5' 9.75) Wt 96.2 kg (212 lb) BMI 30.64 kg/m Vision Screening: Follows with optometry/ophthalmology Assessment/Plan Medicare annual wellness visit, subsequent (Z00.00) - Counseled on healthy diet and regular exercise - Fall avoidance information provided - Personalized prevention plan provided See Below Chief Complaint Patient presents with: Medicare Wellness Exam HPI Ronnie Yarbrough is a 73 year old male who presents here today for Chronic Medical Conditions. and Medicare Annual Visit. Patient with hx of HTN, hyperlipidemia, COPD, neuropathy, DM2, GERD, recent DVT, paroxysmal A. Fib (seeing cardio) and those as below. Patient did have a recent hospital stay for septic arthritis of right elbow and wrist. Info has been sent to ID to determine if patient needs to even continue antibiotics since all cultures came backnegative. Patient sees Dr. Ward in Pulmonary last visit 05/27/2024 Patient sees Hematology last visit 04/2024 Patient sees [facility] last visit 02/2024 Past medical history, appointments, medications, allergies reviewed. Previous Medical History PAST MEDICAL HISTORY 02/24/2023: Acute thromboembolism of deep veins of both lower extremities (HCC) Comment: Eliquis started 02/2023, can stop 08/202309/30/2022: Advance directive discussed with patient Comment: Discussed 09/2022: up to date 03/15/2021: Allergic rhinitis 12/16/2022: At high risk for falls 06/13/2018: 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HCC) Comment: Day: +12; Engrafted Protocol(s): 3422 1C Preparative regimen: melphalan Mobilization regimen: neupogen and plerixafor Stem cell source: apheresis CD34 cell dose (x10e6/kg): 5.14 Date of transplant: 06/15/2018 09/30/2022: Bilateral leg edema 04/21/2021: Cancer of the skin, basal cell Comment: excised 04/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 No date: Cervical spondylosis without myelopathy 03/30/2023: Chronic renal failure, stage 3a ([facility]) 03/15/2021: COPD (chronic obstructive pulmonary disease) ([facility]) 09/09/2021: Diabetic eye exam ([facility]) Comment: Last done 09/09/[address] Juve Reza 06/04/2023: Dilated aortic root ([facility]) Comment: Seeing [facility] 10/06/2021: Discoloration and thickening of nails both feet 07/04/2022: ED (erectile dysfunction) of organic origin 06/04/2023: Enlarged LA (left atrium) Comment: Seeing [facility] 06/13/2018: Essential hypertension Comment: -On lisinopril 10mg daily ( home med) -Will d/c for now given hyperkalemia . 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[facility]) Comment: --ppx ACV and cipro 12/16/2022: Increased weakness when ambulating No date: Inflammatory polyarthropathy ([facility]) 01/02/2018: Leg DVT (deep venous thromboembolism), acute, left ([facility]) Comment: --acute DVT gastrocnemius found 12/13/2017 --continue apixaban till platelets <50K, last dose 06/21/2018 09/30/2022: Living will on file at physician's office Comment: DPA: BREN () 04/22/2021: Low serum vitamin B12 No date: Lumbar spinal stenosis 10/06/2021: Medicare annual wellness visit, subsequent Comment: Medicare part B: Not able to find, Last done: 10/06/2021 10/31/2006: Mixed hyperlipidemia Comment: --will hold atorvastatin d/t interactions with chemotherapy can resume at discharge 11/28/2017: Multiple myeloma ([facility]) No date: Multiple myeloma in remission ([facility]) 10/01/2012: Obesity, Class I, BMI 30-34.9 No date: Osteoarthritis of both hands 06/25/2018: Pancytopenia due to chemotherapy ([facility]) Comment: --Transfuse PRBC and platelets per protocol --GCSF 06/07/2005: Peripheral autonomic neuropathy in disorders classified elsewhere 10/23/2019: Pulmonary hypertension, unspecified ([facility]) 11/13/2006: Spinal stenosis, lumbar region, without neurogenic claudication 12/27/2011: Tobacco abuse Comment: Quit 201204/12/2018: Type 2 diabetes mellitus without complication, without long-term current use of insulin ([facility]) 01/06/2014: Venous insufficiency, peripheral 12/31/2014: Vitamin D deficiency 12/16/2022: Weakness of both lower extremities Previous Surgical History PAST SURGICAL HISTORY 01/28/2013: ANES ARTHROSCOPIC TOTAL SHOULDER REPLACEMENT; Right Comment: [facility] - complete right shoulder replaceement 2008: ARTHRD ANT INTERBODY MIN DSC LUMBAR 1981: ARTHROTOMY W/MENISCUS REPAIR KNEE Comment: RIGHT 1981: ARTHROTOMY W/MENISCUS REPAIR KNEE Comment: LEFT 2007: ARTHRP KNE CONDYLE&PLATU MEDIAL&LAT COMPARTMENTS; Right Comment: Knee replacement, total No date: BACK SURGERY HX 09/25/2012: COLONOSCOPY FLX DX W/COLLJ SPEC WHEN PFRMD Comment: normal colonoscopy - 10 year follow up 09/25/2012: EGD TRANSORAL BIOPSY SINGLE/MULTIPLE Comment: mild distal esophagitis 2021: HAND BILATERAL OP SURGERY Comment: trigger finger/ cyst removal No date: JOINT REPLACEMENT HX; Right Comment: shoulder 08/21/2023: [id number]-[id number]-TOTAL REPLACE/BOTH COMPART; Left 2007: HARRIS W/O FACETEC FORAMOT/DSC 1/2 VRT SGM CRV Comment: Laminectomy, cervical 08/23/2021: PAST SURGICAL HISTORY OF; Right Comment: carpal tunnel release with wrist arthrotomy and synovectomy 08/23/2021: PAST SURGICAL HISTORY OF; Right Comment: ulnar nerve decompression 12/28/2022: PAST SURGICAL HISTORY OF Comment: bilateral revision lainectomy L1-L2, T11-T12 2023: REMV CATARACT EXTRACAP,INSERT LENS; Bilateral Comment: 11/2023 No date: SKIN BIOPSY HX No date: TONSILLECTOMY HX Family History FAMILY HISTORY Problem Relation Age of Onset None Mother Cancer Father PANCREAS Diabetes Father Diabetes Sister None Brother Diabetes Paternal Grandmother COPD No Family History Asthma No Family History Patient Allergies ALLERGIES No Known Allergies Current Medications Current Outpatient Medications on File Prior to Visit Medication Sig doxycycline monohydrate (MONODOX) 100 mg capsule TAKE 1 CAPSULE BY MOUTH TWICE DAILY FOR 28 DAYS oxyCODONE IR (ROXICODONE) 5 mg immediate release tablet TAKE ONE-HALF TO ONE TABLET BY MOUTH EVERY 4 HOURS NEEDED FOR PAIN amoxicillin-clavulanate potassium (AUGMENTIN) 875-125 mg per tablet Take 1 tablet by mouth every 12hours. losartan (COZAAR) 25 mg tablet Take 0.5 tablets by mouth once daily. carvedilol (COREG) 6.25 mg tablet Take 2 tablets by mouth two times a day with meals. Per [facility] atorvastatin (LIPITOR) 40 mg tablet Take 1 tablet by mouth once daily. dulaglutide (TRULICITY) 3 mg/0.5 mL pen injector Inject 3 mg subcutaneously one time a week. Injectonce per week. Discard Pen After Magnesium Oxide 250 mg magnesium tab Take two in the AM and one in the PM. metFORMIN (GLUCOPHAGE) 1,000 mg tablet Take 1 tablet by mouth two times a day with meals. omeprazole (PRILOSEC) 40 mg capsule TAKE ONE CAPSULE BY MOUTH ONCE DAILY ON AN EMPTY STOMACH torsemide (DEMADEX) 20 mg tablet Take 1 tablet by mouth two times a day. . dapagliflozin propanediol (FARXIGA) 10 mg tablet Take 1 tablet by mouth once daily. Take one daily in the morning fbqyhfxtmfc-nzxtifgfx-srmsoimc (TRELEGY ELLIPTA) 100-62.5-25 mcg inhalation powder inhale 1 puff bymouth and INTO THE LUNGS once daily aspirin, enteric coated (ASPIRIN, ENTERIC COATED) 81 mg EC tablet Take 1 tablet by mouth once daily. Cholecalciferol, Vitamin D3, (VITAMIN D-3) 50 mcg (2,000 unit) cap Take 1 capsule by mouth once daily. terbinafine HCl (LAMISIL) 250 mg tablet Take 1 tablet by mouth once daily. cyanocobalamin (VITAMIN B-12) 1,000 mcg tab Take 1 tablet by mouth once daily. Calcium-Cholecalciferol, D3, 600 mg-5 mcg (200 unit) cap Take 1 capsule by mouth once daily. No current facility-administered medications on file prior to visit. Social History Social History Tobacco Use Smoking status: Former Current packs/day: 0.00 Average packs/day: 1 pack/day for 41.0 years (41.0 ttl pk-yrs) Types: Pipe, Cigarettes Start date: 1971 Quit date: 12/09/2011 Years since quittin.4 Smokeless tobacco: Never Tobacco comments: 1/4 pack of cigs; pipe smoker. None of either since cessation. No ETS in childhood home. Smoked up to one ppd Vaping Use Vaping status: Never Used Substance Use Topics Alcohol use: Yes Alcohol/week: 1.0 standard drink of alcohol Types: 1 Cans of beer per week Comment: seldom Drug use: Never Review of Symptoms REVIEW OF SYSTEMS GENERAL: No significant weight loss, malaise or fevers HEENT: Negative for frequent or significant headaches, No changes in hearing or vision, no nose bleeds or other nasal problems NECK: Negative for lumps, goiter, pain and significant neck swelling RESPIRATORY: Negative for cough, hemoptysis, wheezing, COPD, dyspnea or shortness of breath CARDIOVASCULAR: Negative for chest pain, leg swelling, hypertension, CHF or palpitations GI: No nausea, vomiting, or increased diarrhea, No heartburn or reflux symptoms, and no blood : No history of dysuria, frequency or blood MUSCULOSKELETAL: Negative for new or change in hi typical joint pain or swelling, back pain or muscle pain SKIN: Negative for lesions, rash, and itching PSYCH: Negative for sleep disturbance, mood disorder and recent psychosocial stressors HEMATOLOGY/LYMPHOLOGY: Negative for prolonged bleeding, bruising easily or swollen nodes ENDOCRINE: Negative for cold or heat intolerance, symptoms of low BS's NEURO: No history of headaches, syncope, paralysis, seizures or tremors EXAM: BP 119/66 Pulse 89 Ht 177.2 cm (5' 9.75) Wt 96.2 kg (212 lb) BMI 30.64 kg/m Last 5 Encounter Wt Readings: Date: Wt: 05/30/2024 96.2 kg (212 lb) 05/27/2024 97.1 kg (214 lb) 05/27/2024 97.8 kg (215 lb 9.6 oz) 05/03/2024 95.7 kg (211 lb) 04/16/2024 95.7 kg (211 lb) General Appearance: Well appearing, alert, in no acute distress, well-hydrated, well nourished.. Skin: Skin color, texture, turgor normal, no suspicious rashes or lesions. Head: Normocephalic, no masses, lesions, tenderness or abnormalities. Eyes: Anicteric sclera. Pupils are equally round and reactive to light. Extraocular movements are intact. . Ears: External ears, TM's normal, canals clear. Nose/Sinuses: Nares normal, septum midline, mucosa normal, no drainage or sinus tenderness. Oropharynx: Lips, mucosa, and tongue normal, teeth and gums normal, oropharynx normal. Neck: Supple, no adenopathy; thyroid symmetric, normal size, no bruits. Lungs: Lungs clear to auscultation. No wheezing, rhonchi, rales.. Heart: RRR without murmur, gallop, or rubs. No ectopy. Abdomen: Normal abdominal exam, Abdomen soft, non-tender. Bowel sounds normal. No masses, organomegaly. Extremities: No deformities, skin discoloration, Good capillary refill. Has stable bilateral pitting edema Musculoskeletal: Spine range of motion reduced. Muscular strength intact, No joint swelling, deformity, or tenderness. Peripheral Pulses: Normal. Neurologic: Gait slow, steady and aided with cane. Reflexes normal and symmetric. Sensation to light touch and crainal nerves 2-12 intact.. Genitalia: Normal, Penis normal. No urethral discharge. Scrotum normal to palpation. No hernia.. Rectal: Normal exam. Prostate slightly enlarged with smooth form capsule. Diabetic Foot Exam: not able to remove socks Feet: normal distal pulses and sensitive to 10 gm microfilament Skin: As above Vascular Pulses: Normal SEMMES-TOM MONOFILAMENT TESTING Left Foot Right Foot Dorsal Surface Intact Dorsal Surface Intact Plantar Surface Intact Plantar Surface Intact Health Maintenance List Depression Screening Never done Anxiety Screening Never done RSV Vaccine(1 - 1-dose 60+ series) Never done Advance Directive Discussion due on 09/18/2023 Diabetic Foot Exam due on 09/30/2023 Covid-19 Vaccine(2022- season) due on 05/19/2024 Influenza Vaccine(1) due on 05/19/2024 Lung Cancer Screening due on 07/31/2024 Dilated Retinal Exam due on 09/22/2024 Colorectal Cancer Screening due on 10/17/2024 HbA1C due on 10/17/2024 Urine Albumin:Creatinine Ratio due on 04/16/2025 LDL Cholesterol due on 04/16/2025 Serum Creatinine due on 04/26/2025 Annual PCP Team Chronic Disease Visit due on 05/27/2025 BP Controlled (<130/80) due on 05/27/2025 DTaP,Tdap,Td Vaccine(6 - Td or Tdap) due on 09/23/2029 Spirometry Completed Abdominal Aortic Aneurysm Screening Completed Shingrix Vaccine Completed Pneumococcal Vaccine: 65+ Completed HPV Vaccine Aged Out Alpha-1 Antitrypsin Deficiency Screening Discontinued Hepatitis C Screening Discontinued Data reviewed Latest Ref Rng 10/10/2023 04/16/2024 05/27/2024 WBC 3.70 - 11.00 k/uL 8.86 6.80 RBC 4.20 - 6.00 m/uL 5.63 5.29 Hemoglobin 13.0 - 17.0 g/dL 14.4 13.6 Hematocrit 39.0 - 51.0 % 46.8 43.2 MCV 80.0 - 100.0 fL 83.1 81.7 MCH 26.0 - 34.0 pg 25.6 (L) 25.7 (L) MCHC 30.5 - 36.0 g/dL 30.8 31.5 RDW-CV 11.5 - 15.0 % 17.4 (H) 16.8 (H) Platelet Count 150 - 400 k/uL 181 204 MPV 9.0 - 12.7 fL 10.9 10.5 Neut% % 82.2 80.1 Abs Neut (ANC) 1.45 - 7.50 k/uL 7.28 5.44 Lymph% % 9.8 12.1 Abs Lymph 1.00 - 4.00 k/uL 0.87 (L) 0.82 (L) Ramsey% % 7.0 6.6 Abs Ramsey <0.87 k/uL 0.62 0.45 Eosin% % 0.2 0.4 Abs Eosin <0.46 k/uL <0.03 0.03 Baso% % 0.1 0.1 Abs Baso <0.11 k/uL <0.03 <0.03 Immature Gran % % 0.7 0.7 IMMATURE GRANS (ABS) <0.10 k/uL 0.06 0.05 NRBC /100 WBC 0.0 0.0 Absolute nRBC <0.01 k/uL <0.01 <0.01 DTYPE Auto Auto Color Yellow Yellow Clarity Clear Clear Glucose, Urine Negative 3+ ! Bilirubin, Urine Negative Negative Ketones, Urine Negative Trace ! Specific [place], Ur 1.005 - 1.030 1.032 (H) Hemoglobin/Blood,Ur Negative Negative pH, Urine <8.5 6.0 Protein, Urine Negative Trace ! Urobilinogen 0.2-1.0 EU/dL 0.2 EU/dL Nitrites Negative Negative Leukest Negative Negative WBC, Urine 0-5 /HPF 0-5 /HPF RBC, Urine 0-2 /HPF 0-2 /HPF Bacteria Negative /HPF Negative Epithelial Cells /HPF None Seen Hyaline Cast 0 /LPF 0 /LPF Protein, Total 6.3 - 8.0 g/dL 6.3 6.5 Albumin 3.9 - 4.9 g/dL 3.8 (L) 4.1 Calcium 8.5 - 10.2 mg/dL 9.2 9.6 Bilirubin, Total 0.2 - 1.3 mg/dL 0.6 0.7 Alkaline Phosphatase 38 - 113 U/L 91 77 AST 14 - 40 U/L 16 12 (L) ALT 10 - 54 U/L 15 10 Glucose 74 - 99 mg/dL 192 (H) 118 (H) BUN 9 - 24 mg/dL 26 (H) 21 Creatinine 0.73 - 1.22 mg/dL 1.06 0.88 Sodium 136 - 144 mmol/L 137 139 Potassium 3.7 - 5.1 mmol/L 4.2 4.5 Chloride 98 - 107 mmol/L 96 (L) 100 CO2 22 - 30 mmol/L 29 27 Anion Gap 8 - 15 mmol/L 12 12 eGFR >=60 mL/min/1.73m 75 91 Total Cholesterol, Nonfasting <200 mg/dL 130 121 Triglycerides, Nonfasting <150 mg/dL 289 (H) 166 (H) HDL Cholesterol, Nonfasting >39 mg/dL 30 (L) 41 LDL Cholesterol, Nonfasting <100 mg/dL 42 47 Non HDL Cholesterol, Nonfasting <130 mg/dL 100 80 VLDL Cholesterol, Nonfasting <30 mg/dL 58 (H) 33 (H) Total Chol/HDL Ratio, Nonfasting <5.10 mg/dL 4.33 2.95 LDL/HDL Ratio, Nonfasting <2.54 mg/dL 1.40 1.15 Creatinine, Ur Random (UCRR) 20.0 - 300.0 mg/dL 89.6 122.5 Albumin, Urine Random mg/L 31.6 17.3 Albumin/Creat Ratio <30 mg/g 35 (H) 14 Iron 41 - 186 ug/dL 36 (L) TIBC 232 - 386 ug/dL 235 Transferrin Saturation 15.0 - 57.0 % 15.3 Hemoglobin A1C 4.3 - 5.6 % 7.2 (H) 7.0 (H) Estimated Average Glucose mg/dL 160 154 PSA <2.60 ng/mL 0.12 0.17 Vitamin B12 232 - 1,245 pg/mL 468 049 779 Vitamin D 25 Hydroxy 31.0 - 80.0 ng/mL 34.7 Magnesium 1.7 - 2.3 mg/dL 1.8 Folate >4.7 ng/mL >20.0 Ferritin 30.3 - 565.7 ng/mL 75.0 A/P ASSESSMENT/PLAN: 1. Medicare annual wellness visit, subsequent - ICD9: V70.0, ICD10: Z00.00 (primary diagnosis) - Counseled on healthy diet and regular exercise - Discussed need for and benefit of weight loss. BMI 30.64 kg/(m^2) - Follow up for annual exam in one year - advised on Flu, COVID and RSV. 2. Diabetic eye exam (HCC) - ICD9: V72.0, 250.00, ICD10: Z01.00, E11.9 - up to date 3. Type 2 diabetes mellitus without complication, without long-term current use of insulin (HCC) - ICD9: 250.00, ICD10: E11.9 - Controlled - Improving control - Continue current medications - Counseled on healthy diet and regular exercise - Discussed need for and benefit of weight loss. BMI 30.64 kg/(m^2) 4. Essential hypertension - ICD9: 401.9, ICD10: I10 - Controlled - Continue current medications - Recommend home blood pressure monitoring, to bring results to next visit - Encouraged sodium restriction, DASH or Mediterranean diet - Recommend regular aerobic exercise - Discussed need for and benefit of weight loss. BMI 30.64 kg/(m^2) 5. Mixed hyperlipidemia - ICD9: 272.2, ICD10: E78.2 - Controlled - Continue current medications - Counseled on healthy diet and regular exercise - Discussed need for and benefit of weight loss. BMI 30.64 kg/(m^2) 6. Bilateral carotid artery stenosis - ICD9: 433.10, 433.30, ICD10: I65.23 - cont statin and follow with US's. 7. Bilateral leg edema - ICD9: 782.3, ICD10: R60.0 - cont current Tx and diuretics. 8. Chronic obstructive pulmonary disease, unspecified COPD type (HCC) - ICD9: 496, ICD10: J44.9 - stable and managed per pulmonary 9. Pulmonary hypertension, unspecified (HCC) - ICD9: 416.8, ICD10: I27.20 - as per #8 10. Dilated aortic root (HCC) - ICD9: 447.71, ICD10: I77.810 - sale and managed per cardio 11. Paroxysmal atrial fibrillation (HCC) - ICD9: 427.31, ICD10: I48.0 - as per #10 - no longer on anticoagulation per cardio. 12. Peripheral autonomic neuropathy in disorders classified elsewhere - ICD9: 337.1, ICD10: G99.0 - stable with Tx. 13. Gastroesophageal reflux disease, unspecified whether esophagitis present - ICD9: 530.81, ICD10:K21.9 - Continue treatment with Prilosec 40 mg QD 14. Multiple myeloma, remission status unspecified (HCC) - ICD9: 203.00, ICD10: C90.00 - stable and managed per Hem/Onc 15. Multiple myeloma in remission (HCC) - ICD9: 203.01, ICD10: C90.01 - as per #14 16. 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) - ICD9: 284.11, ICD10: D61.810 - as per #4 17. 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HCC) - ICD9: V42.82, ICD10: Z94.84 - doing well and followed by Hem/Onc 18. 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 19. Low serum vitamin B12 - ICD9: 266.2, ICD10: E53.8 - stabl with replacement 20. Hypomagnesemia - ICD9: 275.2, ICD10: E83.42 - stale with replacement 21. Obesity, Class I, BMI 30-34.9 - ICD9: 278.00, ICD10: E66.9 - patient to continue work on weight loss. 22. Vitamin D deficiency - ICD9: 268.9, ICD10: E55.9 - stable with replacement 23. Foot callus - ICD9: 700, ICD10: L84 - consult to Podiatry 24. Inflammatory polyarthropathy (HCC) - ICD9: 714.9, ICD10: M06.4 - stable and sees pain management 25. Spinal stenosis, lumbar region, without neurogenic claudication - ICD9: 724.02, ICD10: M48.061 - as per #24 26. Low serum iron - ICD9: 280.9, ICD10: E61.1 In month repeat: - IRON AND TIBC - COMPLETE BLOOD COUNT AND DIFFERENTIAL - FERRITIN 27. Advance directive discussed with patient - ICD9: V65.49, ICD10: Z71.89 - up to date. 28. Encounter for screening examination for other mental health and behavioral disorders - ICD9: V79.8, ICD10: Z13.39 - ANXIETY SCREENING 29. Screening for depression - ICD9: V79.0, ICD10: Z13.31 - DEPRESSION SCREENING F/u in 6 months routine check A1c, Lipid, I spent a total of 40 minutes on the date of the service which included preparing to see the patient, [id number] patient care, completing clinical documentation, performing a medically appropriate examination, counseling and educating the patient/family/caregiver and ordering medications, tests, or procedures. Ovidio Vincent MD The sensitive examination was discussed with the Patient or Patient's Authorized 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. Asapplicable, any other physician, advance practice provider, medical student, or other health professional student that will be observing or involved in the sensitive examination for educational or training purposes was discussed with the Patient or Authorized 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. The Patient or Authorized 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 has agreed to proceed with the sensitive examination. (Sensitive examination includes inspection and/or palpation of the breasts, pelvis, prostate and anorectal regions) [facility] in [facility] NoteHNO ID: [id number] Author: OVIDIO VINCENT MD Service: ? Author Type: Physician Type: Progress Notes Filed: 05/30/2024 13:37 Note Text: Ronnie Yarbrough is a 73 year old male here for a Medicare wellness visit. Medicare Health Risk Assessment General Health Good Exercise: Minutes/Day 30 min Exercise: Days/Week 5 days Alcohol: Daily Use Monthly or less Alcohol: Drinks/Day Patient does not drink Alcohol: 6 or more drinks Never Feel off balance Yes Concerns: Teeth/Dentures No Concerns: Sexual function No Troubled by feelings None of the above Frequency: Eating healthy diet More than half the days ADLs requiring help None of the above Safety precautions in home/vehicle Yes Smoke, vape, chews tobacco No Difficulty hearing Yes Difficulty seeing No Current Providers Specialists: I have reviewed specialist-related care of the patient in the medical record. Current care team: Patient Care Team: Ovidio Vincent MD as PCP - General (Family Medicine) Becky Leija MD as Physician (Radiation Oncology) Tato Castro MD as Pain Management (Anesthesiology) Santos Woods MD as Physician (Blood and Marrow Transplant) Fidel De La Garza MD as Consulting (Hematology/Oncology) Halima Cohen (Rn), RN (Inactive) as Specialty Blanket Binder (Hospice AND Palliative Medicine) Nancie Low, ALICIA as Specialty Blanket Binder (Hematology/Oncology) Marta Lui, ALICIA as Regional Refrigerated Cdl Truck Driver Murray Mooney MD (Hematology/Oncology) Leno Márquez MD (Orthopedics) Loretta Leon PA-C (Pulmonary and Critical Care Medicine) Dr. Ward: [facility] Medical/Family history review Reviewed and updated problem list, medical/surgical/family/social history, medications, and allergies. Opioid use review Opioid Medications (last 90 days) 05/15/2024 00:00 Opioid Medications oxycodone HCl TAKE ONE-HALF TO ONE TABLET BY MOUTH EVERY 4 HOURS NEEDED FOR PAIN (5 mg tab) Details Patient-reported medication Prescribed No opioid use on file in the last 90 days Does patient have risk factors for opioid abuse? No Pain overview Current pain concerns and treatment plan reviewed. Patient under the care of a specialist. Anxiety/Depression screening Recommendation: no further intervention at this time Cognitive screening Mini Cog Score: 4 Cognitive screening reviewed and No further action needed (score 3-5). Functional Observation Was the patient's Timed Up AND Go test unsteady or ? 12 seconds? No Advance Care Planning Surrogate decision maker documented and/or advance directives scanned in chart Measurements BP 119/66 Pulse 89 Ht 177.2 cm (5' 9.75) Wt 96.2 kg (212 lb) BMI 30.64 kg/m? Vision Screening: Follows with optometry/ophthalmology Assessment/Plan Medicare annual wellness visit, subsequent (Z00.00) - Counseled on healthy diet and regular exercise - Fall avoidance information provided - Personalized prevention plan provided See Below Chief Complaint Patient presents with: Medicare Wellness Exam HPI Ronnie Yarbrough is a 73 year old male who presents here today for Chronic Medical Conditions. and Medicare Annual Visit. Patient with hx of HTN, hyperlipidemia, COPD, neuropathy, DM2, GERD, recent DVT, paroxysmal A. Fib (seeing cardio) and those as below. Patient did have a recent hospital stay for septic arthritis of right elbow and wrist. Info has been sent to ID to determine if patient needs to even continue antibiotics since all cultures came back negative. Patient sees Dr. Ward in Pulmonary last visit 05/27/2024 Patient sees Hematology last visit 04/2024 Patient sees [facility] last visit 02/2024 Past medical history, appointments, medications, allergies reviewed. Previous Medical History PAST MEDICAL HISTORY 02/24/2023: Acute thromboembolism of deep veins of both lower extremities (HCC) Comment: Eliquis started 02/2023, can stop 08/202309/30/2022: Advance directive discussed with patient Comment: Discussed 09/2022: up to date 03/15/2021: Allergic rhinitis 12/16/2022: At high risk for falls 06/13/2018: 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HCC) Comment: Day: +12; Engrafted Protocol(s): 3422 1C Preparative regimen: melphalan Mobilization regimen: neupogen and plerixafor Stem cell source: apheresis CD34 cell dose (x10e6/kg): 5.14 Date of transplant: 06/15/2018 09/30/2022: Bilateral leg edema 04/21/2021: Cancer of the skin, basal cell Comment: excised 04/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 No date: Cervical spondylosis without myelopathy 03/30/2023: Chronic renal failure, stage 3a (HCC) 03/15/2021: COPD (chronic obstructive pulmonary disease) ([facility]) 09/09/2021: Diabetic eye exam ([facility]) Comment: Last done 09/09/[address] Juve Reza 06/04/2023: Dilated aortic root ([facility]) Comment: Seeing [facility] 10/06/2021: Discoloration and thickening of nails both feet 07/04/2022: ED (erecti (more content not included)...[facility] 05-30-2024 Telephone encounter Note* Telephone Encounter - Slime Hernandez LPN - 05/30/2024 9:00 AM EDT Patient notified of results and provider's instructions. Patient verbalizes understanding. Slime Hernandez LPN [facility]09-12-2024 Miscellaneous Notes* Telephone Encounter - Slime Hernandez LPN - 05/30/2024 9:00 AM EDT Patient notified of results and provider's instructions. Patient verbalizes understanding. Slime Hernandez LPN * Telephone Encounter - Ovidio Vincent MD - 05/29/2024 9:05 PM EDT Let patient know the US of his neck arteries showed mild narrowing on both sides but not significant enough to cause any symptoms or a stroke. We will repeat the US every few years. documented in [facility]09-[facility]-2024 Telephone encounter Note * Telephone Encounter - Ovidio Vincent MD - 05/29/2024 9:05 PM EDT Let patient know the US of his neck arteries showed mild narrowing on both sides but not significant enough to cause any symptoms or a stroke. We will repeat the US every few years. [facility] Telephone encounter Note* Telephone Encounter - Ramu Alanis MA - 05/29/2024 1:22 PM EDT Patient notified and voiced understanding. Ramu Alanis MA [facility]09-11-2024 Miscellaneous Notes* Telephone Encounter - Ramu Alanis MA - 05/29/2024 1:22 PM EDT Patient notified and voiced understanding. Ramu Alanis MA * Telephone Encounter - Ovidio Vincent MD - 05/29/2024 12:54 PM EDT Let patient know the MRI of his brain was normal with some expected normal age related changes. documented in [facility] [facility] Telephone encounter Note * Telephone Encounter - Ovidio Vincent MD - 05/29/2024 12:54 PM EDT Let patient know the MRI of his brain was normal with some expected normal age related changes. [facility]09-11-2024 History of Present illness Narrative* Adonis Bryant, RT(R) - 05/29/2024 9:20 AM EDT Radiology Service Progress Note PATIENT NAME: Ronnie Yarbrough DATE OF SERVICE: May 29, 2024 TIME: 9:20 AM PATIENT IDENTITY VERIFICATION COMPLETED USING TWO (2) IDENTIFIERS: Name and Date of confirmedby patient verbally. FALL SCREENING: Has the patient had 2 falls in the last year or 1 fall with injury or currently using an Ambulatory Assistive Device (Walker, Cane, Wheelchair, Crutches, etc.)? Yes, Patient High Riskfor Falls What interventions were put in place to prevent falls during this visit? Instructed Patient to Callfor Help if Needed, Offered Assistance with Transfers/Clothing, Instructed Patient to Remain Seated(Not on Exam Table) Until Exam, and Increased Observations by Caregivers PATIENT GENDER DATA: Male PATIENT RELEVANT IMPLANT DATA REVIEWED: Yes PATIENT PRESENTS WITH AN IMPLANTABLE OR ATTACHED IMPORT CUSTOMS CLEARING AGENT: No RADIOLOGY DEPARTMENT: MR; Exam(s) Completed: Head: Routine Brain PERIPHERAL IV DATA: Not applicable SIGNED BY: ARNIE Montelongo) May 29, 2024 9:20 AM documented [facility] NoteHNO ID: [id number] Author: ADONIS BRYANT RT (R) Service: ? Author Type: Technologist Type: Progress Notes Filed: 05/29/2024 09:20 Note Text: Radiology Service Progress Note PATIENT NAME: Ronnie Yarbrough DATE OF SERVICE: May 29, 2024 TIME: 9:20 AM PATIENT IDENTITY VERIFICATION COMPLETED USING TWO (2) IDENTIFIERS: Name and Date of confirmed by patient verbally. FALL SCREENING: Has the patient had 2 falls in the last year or 1 fall with injury or currently using an Ambulatory Assistive Device (Walker, Cane, Wheelchair, Crutches, etc.)? Yes, Patient High Risk for Falls What interventions were put in place to prevent falls during this visit? Instructed Patient to Call for Help if Needed, Offered Assistance with Transfers/Clothing, Instructed Patient to Remain Seated (Not on Exam Table) Until Exam, and Increased Observations by Caregivers PATIENT GENDER DATA: Male PATIENT RELEVANT IMPLANT DATA REVIEWED: Yes PATIENT PRESENTS WITH AN IMPLANTABLE OR ATTACHED IMPORT CUSTOMS CLEARING AGENT: No RADIOLOGY DEPARTMENT: MR; Exam(s) Completed: Head: Routine Brain PERIPHERAL IV DATA: Not applicable SIGNED BY: ARNIE Montelongo) May 29, 2024 9:20 [facility]09-09-2024 History of Present illness Narrative* Hayde Ward MD - 05/27/2024 10:00 AM EDT Images from the original note were not included. . [facility] [place] Note Patient name: Ronnie Yarbrough PCP: Ovidio Vincent MD CC: Follow-up COPD HPI: Ronnie Yarbrough 73 year old male former [id number] smoker, quitting in 2011 with PMH significantfor multiple myeloma s/p Revlimid/Velcade and dexamethasone followed by stem cell transplant havingachieved remission, COPD with chronic bronchitis component, HTN, HLD, diastolic heart failure, inflammatory polyarthropathy, pulmonary nodules and DVT. Current inhaled therapy consisted of Trelegy Ellipta with as needed albuterol. He has known stable pulmonary nodules but actually qualifies for lung cancer screening and will be due for CT in July but he is current declining evaluation. Of a pulmonary standpoint, he states he has been doing well. No significant dyspnea, cough, mucus production or wheezing. He has not been ill with any upper respiratory infection nor required hospitalization or ED visit for his lung disease. No need for his rescue inhaler. Recent history notable for rightelbow septic arthritis requiring surgical intervention. COPD Assessment Test I never cough 0 1 2 3 4 5 I cough all the time; Score 1 I have no phlegm 0 1 2 3 4 5 My chest is completely full of phlegm; Score 1 My chest does not feel tight at all 0 1 2 3 4 5 My chest chest feels very tight; Score 0 When I walk up a hill or one flight of stairs I am not breathless 0 1 2 3 4 5 When I walk up a hillor one flight or stairs I am very breathless; Score 1 I am not limited doing any activities at home 0 1 2 3 4 5 I am very limited doing activities at home; Score 1 I am confident leaving my home despite my lung condition 0 1 2 3 4 5 I am not at all confident leaving my home because of my lung condition; Score 5 I sleep soundly 0 1 2 3 4 5 don't sleep soundly because of my lungs; Score 0 I have lots of energy 0 1 2 3 4 5 I have no energy at all; Score 1 Total Score: 10 PAST MEDICAL HISTORY 02/24/2023: Acute thromboembolism of deep veins of both lower extremities (HCC) Comment: Eliquis started 02/2023, can stop 08/202309/30/2022: Advance directive discussed with patient Comment: Discussed 09/2022: up to date 03/15/2021: Allergic rhinitis 12/16/2022: At high risk for falls 06/13/2018: 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[facility]) Comment: Day: +12; Engrafted Protocol(s): 3422 1C Preparative regimen: melphalan Mobilization regimen: neupogen and plerixafor Stem cell source: apheresis CD34 cell dose (x10e6/kg): 5.14 Date of transplant: 06/15/2018 09/30/2022: Bilateral leg edema 04/21/2021: Cancer of the skin, basal cell Comment: excised 04/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 No date: Cervical spondylosis without myelopathy 03/30/2023: Chronic renal failure, stage 3a ([facility]) 03/15/2021: COPD (chronic obstructive pulmonary disease) ([facility]) 09/09/2021: Diabetic eye exam ([facility]) Comment: Last done 09/09/[address] Juve Reza 06/04/2023: Dilated aortic root ([facility]) Comment: Seeing [facility] 10/06/2021: Discoloration and thickening of nails both feet 07/04/2022: ED (erectile dysfunction) of organic origin 06/04/2023: Enlarged LA (left atrium) Comment: Seeing [facility] 06/13/2018: Essential hypertension Comment: -On lisinopril 10mg daily ( home med) -Will d/c for now given hyperkalemia . 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[facility]) Comment: --ppx ACV and cipro 12/16/2022: Increased weakness when ambulating No date: Inflammatory polyarthropathy ([facility]) 01/02/2018: Leg DVT (deep venous thromboembolism), acute, left ([facility]) Comment: --acute DVT gastrocnemius found 12/13/2017 --continue apixaban till platelets <50K, last dose 06/21/2018 09/30/2022: Living will on file at physician's office Comment: DPA: BREN () 04/22/2021: Low serum vitamin B12 No date: Lumbar spinal stenosis 10/06/2021: Medicare annual wellness visit, subsequent Comment: Medicare part B: Not able to find, Last done: 10/06/2021 10/31/2006: Mixed hyperlipidemia Comment: --will hold atorvastatin d/t interactions with chemotherapy can resume at discharge 11/28/2017: Multiple myeloma ([facility]) No date: Multiple myeloma in remission ([facility]) 10/01/2012: Obesity, Class I, BMI 30-34.9 No date: Osteoarthritis of both hands 06/25/2018: Pancytopenia due to chemotherapy ([facility]) Comment: --Transfuse PRBC and platelets per protocol --GCSF 06/07/2005: Peripheral autonomic neuropathy in disorders classified elsewhere 10/23/2019: Pulmonary hypertension, unspecified ([facility]) 11/13/2006: Spinal stenosis, lumbar region, without neurogenic claudication 12/27/2011: Tobacco abuse Comment: Quit 201204/12/2018: Type 2 diabetes mellitus without complication, without long-term current use of insulin ([facility]) 01/06/2014: Venous insufficiency, peripheral 12/31/2014: Vitamin D deficiency 12/16/2022: Weakness of both lower extremities ALLERGIES No Known Allergies doxycycline monohydrate (MONODOX) 100 mg capsule TAKE 1 CAPSULE BY MOUTH TWICE DAILY FOR 28 DAYS oxyCODONE IR (ROXICODONE) 5 mg immediate release tablet TAKE ONE-HALF TO ONE TABLET BY MOUTH EVERY 4 HOURS NEEDED FOR PAIN amoxicillin-clavulanate potassium (AUGMENTIN) 875-125 mg per tablet Take 1 tablet by mouth every 12hours. losartan (COZAAR) 25 mg tablet Take 0.5 tablets by mouth once daily. carvedilol (COREG) 6.25 mg tablet Take 2 tablets by mouth two times a day with meals. Per [facility] atorvastatin (LIPITOR) 40 mg tablet Take 1 tablet by mouth once daily. dulaglutide (TRULICITY) 3 mg/0.5 mL pen injector Inject 3 mg subcutaneously one time a week. Injectonce per week. Discard Pen After Magnesium Oxide 250 mg magnesium tab Take two in the AM and one in the PM. metFORMIN (GLUCOPHAGE) 1,000 mg tablet Take 1 tablet by mouth two times a day with meals. omeprazole (PRILOSEC) 40 mg capsule TAKE ONE CAPSULE BY MOUTH ONCE DAILY ON AN EMPTY STOMACH torsemide (DEMADEX) 20 mg tablet Take 1 tablet by mouth two times a day. . dapagliflozin propanediol (FARXIGA) 10 mg tablet Take 1 tablet by mouth once daily. Take one daily in the morning lbmdnsftnjm-kcbzfaprg-klgknfwu (TRELEGY ELLIPTA) 100-62.5-25 mcg inhalation powder inhale 1 puff bymouth and INTO THE LUNGS once daily aspirin, enteric coated (ASPIRIN, ENTERIC COATED) 81 mg EC tablet Take 1 tablet by mouth once daily. Cholecalciferol, Vitamin D3, (VITAMIN D-3) 50 mcg (2,000 unit) cap Take 1 capsule by mouth once daily. terbinafine HCl (LAMISIL) 250 mg tablet Take 1 tablet by mouth once daily. cyanocobalamin (VITAMIN B-12) 1,000 mcg tab Take 1 tablet by mouth once daily. Calcium-Cholecalciferol, D3, 600 mg-5 mcg (200 unit) cap Take 1 capsule by mouth once daily. Social History Tobacco Use Smoking status: Former Current packs/day: 0.00 Average packs/day: 1 pack/day for 41.0 years (41.0 ttl pk-yrs) Types: Pipe, Cigarettes Start date: 1971 Quit date: 12/09/2011 Years since quittin.4 Smokeless tobacco: Never Tobacco comments: 1/4 pack of cigs; pipe smoker. None of either since cessation. No ETS in childhood home. Smoked up to one ppd Vaping Use Vaping status: Never Used Substance Use Topics Alcohol use: Yes Alcohol/week: 1.0 standard drink of alcohol Types: 1 Cans of beer per week Comment: seldom Drug use: Never PMH, Social history, family history and surgical history reviewed and updated in EMR REVIEW OF SYSTEMS: CONSTITUTIONAL: No fevers, chills, nightsweats HEENT: Denies current nasal congestion/sinus symptoms, allergy problems. CARDIOVASCULAR: No chest pain, dyspnea, palpitations. Chronic edema. PULM: See HPI MUSC-SKEL: See HPI PHYSICAL EXAMINATION: BP 118/70 Pulse 82 Ht 5' 9 (1.75m) Wt 215 lb 9.6 oz (97.8kg) SpO2 98% BMI 31.82 kg/(m^2). General Appearance: Age-appropriate male, NAD. Skin: Skin color, texture, turgor normal, no suspicious rashes or lesions. Head: Normocephalic, no masses, lesions, tenderness or abnormalities. Oropharynx: No oral lesions or thrush. Brown tongue. Neck: No JVD, no masses, no adenopathy. Lungs: Not labored, normal to percussion, occasional rhonchus, no crackles. Heart: Intermittently irregular rhythm, no murmur. Extremities: 3+ pitting lower extremity edema, no clubbing. Assessment/Plan: 1. Mild COPD -Symptomatically appears to be stable with CAT score 10. No issues with his current inhaled therapy -He will continue on Trelegy Ellipta with as needed albuterol 2. Former cigarette smoker -Former smoker having quit in 2011 -Continue abstinence -Patient qualifies for lung cancer screening but is declining at this time 3. Lung nodules -Stable pulmonary nodules that does not require further surveillance Hayde Ward MD [facility] [place] [facility]24 NoteHNO ID: [id number] Author: HAYDE WARD MD Service: ? Author Type: Physician Type: Progress Notes Filed: 05/27/2024 11:56 Note Text: . [facility] [place] Note Patient name: Ronnie Yarbrough PCP: Ovidio Vincent MD CC: Follow-up COPD HPI: Ronnie Yarbrough 73 year old male former [id number] smoker, quitting in 2011 with PMH significant for multiple myeloma s/p Revlimid/Velcade and dexamethasone followed by stem cell transplant having achieved remission, COPD with chronic bronchitis component, HTN, HLD, diastolic heart failure, inflammatory polyarthropathy, pulmonary nodules and DVT. Current inhaled therapy consisted of Trelegy Ellipta with as needed albuterol. He has known stable pulmonary nodules but actually qualifies for lung cancer screening and will be due for CT in July but he is current declining evaluation. Of a pulmonary standpoint, he states he has been doing well. No significant dyspnea, cough, mucus production or wheezing. He has not been ill with any upper respiratory infection nor required hospitalization or ED visit for his lung disease. No need for his rescue inhaler. Recent history notable for right elbow septic arthritis requiring surgical intervention. COPD Assessment Test I never cough 0 1 2 3 4 5 I cough all the time; Score 1 I have no phlegm 0 1 2 3 4 5 My chest is completely full of phlegm; Score 1 My chest does not feel tight at all 0 1 2 3 4 5 My chest chest feels very tight; Score 0 When I walk up a hill or one flight of stairs I am not breathless 0 1 2 3 4 5 When I walk up a hill or one flight or stairs I am very breathless; Score 1 I am not limited doing any activities at home 0 1 2 3 4 5 I am very limited doing activities at home; Score 1 I am confident leaving my home despite my lung condition 0 1 2 3 4 5 I am not at all confident leaving my home because of my lung condition; Score 5 I sleep soundly 0 1 2 3 4 5 don't sleep soundly because of my lungs; Score 0 I have lots of energy 0 1 2 3 4 5 I have no energy at all; Score 1 Total Score: 10 PAST MEDICAL HISTORY 02/24/2023: Acute thromboembolism of deep veins of both lower extremities ([facility]) Comment: Eliquis started 02/2023, can stop 08/202309/30/2022: Advance directive discussed with patient Comment: Discussed 09/2022: up to date 03/15/2021: Allergic rhinitis 12/16/2022: At high risk for falls 06/13/2018: 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[facility]) Comment: Day: +12; Engrafted Protocol(s): 3422 1C Preparative regimen: melphalan Mobilization regimen: neupogen and plerixafor Stem cell source: apheresis CD34 cell dose (x10e6/kg): 5.14 Date of transplant: 06/15/2018 09/30/2022: Bilateral leg edema 04/21/2021: Cancer of the skin, basal cell Comment: excised 04/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 No date: Cervical spondylosis without myelopathy 03/30/2023: Chronic renal failure, stage 3a ([facility]) 03/15/2021: COPD (chronic obstructive pulmonary disease) ([facility]) 09/09/2021: Diabetic eye exam ([facility]) Comment: Last done 09/09/[address] Juve Reza 06/04/2023: Dilated aortic root (HCC) Comment: Seeing [facility] 10/06/2021: Discoloration and thickening of nails both feet 07/04/2022: ED (erectile dysfunction) of organic origin 06/04/2023: Enlarged LA (left atrium) Comment: Seeing [facility] 06/13/2018: Essential hypertension Comment: -On lisinopril 10mg daily ( home med) -Will d/c for now given hyperkalemia . 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[facility]) Comment: --ppx ACV and cipro 12/16/2022: Increased weakness when ambulating No date: Inflammatory polyarthropathy ([facility]) 01/02/2018: Leg DVT (deep venous thromboembolism), acute, left ([facility]) Comment: --acute DVT gastrocnemius found 12/13/2017 --continue apixaban till platelets <50K, last dose 06/21/2018 09/30/2022: Living will on file at physician's office Comment: DPA: BREN () 04/22/2021: Low serum vitamin B12 No date: Lumbar spinal stenosis 10/06/2021: Medicare annual wellness visit, subsequent Comment: Medicare part B: Not able to find, Last done: 10/06/2021 10/31/2006: Mixed hyperlipidemia Comment: --will hold atorvastatin d/t interactions with chemotherapy can resume at discharge 11/28/2017: Multiple myeloma ([facility]) No date: Multiple myeloma in remission ([facility]) 10/01/2012: Obesity, Class I, BMI 30-34.9 No date: Osteoarthritis of both hands 06/25/2018: Pancytopenia due to chemotherapy ([facility]) Comment: --Transfuse PRBC and platelets per protocol --GCSF 06/07/2005: Peripheral autonomic neuropathy in disorders classified elsewhere 10/23/2019: Pulmonary hypertension, unspecified (HCC) 11/13/2006: Spinal stenosis, lumbar region, without ne (more content not included)...[facility]09-09-2024 NoteHNO ID: [id number] Author: LESLYE WINTER PA-C Service: ? Author Type: Physician Mild Disabilities Teacher Type: Progress Notes Filed: 05/27/2024 08:40 Note Text: Chief Complaint Patient presents with: Hospital F/U HPI Ronnie Yarbrough is a 73 year old male who presents here today for Hospital Discharge Follow up.. Patient was admitted to [facility] in [place] for septic arthritis of right elbow and wrist. He had IANDD by ortho and was admitted for IV antibiotics under infectious disease. Ortho reported probable septic arthritis and pseudogout. Infectious Disease initially recommended 6 weeks of IV atb but patient declined Picc line at discharge. He was given doxycycline and augmentin to take for 4 weeks. He is leaving next week for vacation in [place]. Over patient states symptoms have significantly improved. No pain. No fevers. While in hospital, he was also found to be anemic and his BP was low. His bp medications were decreased. Past medical history, appointments, medications, allergies reviewed. Previous Medical History PAST MEDICAL HISTORY 02/24/2023: Acute thromboembolism of deep veins of both lower extremities ([facility]) Comment: Eliquis started 02/2023, can stop 08/202309/30/2022: Advance directive discussed with patient Comment: Discussed 09/2022: up to date 03/15/2021: Allergic rhinitis 12/16/2022: At high risk for falls 06/13/2018: 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[facility]) Comment: Day: +12; Engrafted Protocol(s): 3422 1C Preparative regimen: melphalan Mobilization regimen: neupogen and plerixafor Stem cell source: apheresis CD34 cell dose (x10e6/kg): 5.14 Date of transplant: 06/15/2018 09/30/2022: Bilateral leg edema 04/21/2021: Cancer of the skin, basal cell Comment: excised 04/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 No date: Cervical spondylosis without myelopathy 03/30/2023: Chronic renal failure, stage 3a ([facility]) 03/15/2021: COPD (chronic obstructive pulmonary disease) ([facility]) 09/09/2021: Diabetic eye exam ([facility]) Comment: Last done 09/09/[address] Juve Reza 06/04/2023: Dilated aortic root ([facility]) Comment: Seeing [facility] 10/06/2021: Discoloration and thickening of nails both feet 07/04/2022: ED (erectile dysfunction) of organic origin 06/04/2023: Enlarged LA (left atrium) Comment: Seeing [facility] 06/13/2018: Essential hypertension Comment: -On lisinopril 10mg daily ( home med) -Will d/c for now given hyperkalemia . 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[facility]) Comment: --ppx ACV and cipro 12/16/2022: Increased weakness when ambulating No date: Inflammatory polyarthropathy ([facility]) 01/02/2018: Leg DVT (deep venous thromboembolism), acute, left ([facility]) Comment: --acute DVT gastrocnemius found 12/13/2017 --continue apixaban till platelets <50K, last dose 06/21/2018 09/30/2022: Living will on file at physician's office Comment: DPA: BREN () 04/22/2021: Low serum vitamin B12 No date: Lumbar spinal stenosis 10/06/2021: Medicare annual wellness visit, subsequent Comment: Medicare part B: Not able to find, Last done: 10/06/2021 10/31/2006: Mixed hyperlipidemia Comment: --will hold atorvastatin d/t interactions with chemotherapy can resume at discharge 11/28/2017: Multiple myeloma ([facility]) No date: Multiple myeloma in remission ([facility]) 10/01/2012: Obesity, Class I, BMI 30-34.9 No date: Osteoarthritis of both hands 06/25/2018: Pancytopenia due to chemotherapy ([facility]) Comment: --Transfuse PRBC and platelets per protocol --GCSF 06/07/2005: Peripheral autonomic neuropathy in disorders classified elsewhere 10/23/2019: Pulmonary hypertension, unspecified ([facility]) 11/13/2006: Spinal stenosis, lumbar region, without neurogenic claudication 12/27/2011: Tobacco abuse Comment: Quit 201204/12/2018: Type 2 diabetes mellitus without complication, without long-term current use of insulin ([facility]) 01/06/2014: Venous insufficiency, peripheral 12/31/2014: Vitamin D deficiency 12/16/2022: Weakness of both lower extremities Previous Surgical History PAST SURGICAL HISTORY 01/28/2013: ANES ARTHROSCOPIC TOTAL SHOULDER REPLACEMENT; Right Comment: [facility] - complete right shoulder replaceement 2009: ARTHRD ANT INTERBODY MIN DSC LUMBAR 1981: ARTHROTOMY W/MENISCUS REPAIR KNEE Comment: RIGHT 1981: ARTHROTOMY W/MENISCUS REPAIR KNEE Comment: LEFT 2007: ARTHRP KNE CONDYLEANDPLATU MEDIALANDLAT COMPARTMENTS; Right Comment: Knee replacement, total No date: BACK SURGERY HX 09/25/2012: COLONOSCOPY FLX DX W/COLLJ SPEC WHEN PFRMD Comment: normal colonoscopy - 10 year follow up 09/25/2012: EGD TRANSORAL BIOPSY SINGLE/MULTIPLE Comment: mild distal esophagitis 2021: HAND BILATERAL OP SURGERY C (more content not included)...[facility]09-09-2024 History of Present illness Narrative* Leslye Winter PA-C - 05/27/2024 7:16 AM EDT Chief Complaint Patient presents with: Hospital F/U [facility] Ronnie Yarbrough is a 73 year old male who presents here today for Hospital Discharge Follow up.. Patient was admitted to [facility] in [place] for septic arthritis of right elbow and wrist. He had I&D by ortho and was admitted for IV antibiotics under infectious disease. Ortho reported probable septic arthritis and pseudogout. Infectious Disease initially recommended 6 weeks of IV atb but patient declined Picc line at discharge. He was given doxycycline and augmentin to take for 4 weeks. He is leaving next week for vacation in [place]. Over patient states symptoms have significantly improved. No pain. No fevers. While in hospital, he was also found to be anemic and his BP was low. His bp medications were decreased. Past medical history, appointments, medications, allergies reviewed. Previous Medical History PAST MEDICAL HISTORY 02/24/2023: Acute thromboembolism of deep veins of both lower extremities ([facility]) Comment: Eliquis started 02/2023, can stop 08/202309/30/2022: Advance directive discussed with patient Comment: Discussed 09/2022: up to date 03/15/2021: Allergic rhinitis 12/16/2022: At high risk for falls 06/13/2018: 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[facility]) Comment: Day: +12; Engrafted Protocol(s): 3422 1C Preparative regimen: melphalan Mobilization regimen: neupogen and plerixafor Stem cell source: apheresis CD34 cell dose (x10e6/kg): 5.14 Date of transplant: 06/15/2018 09/30/2022: Bilateral leg edema 04/21/2021: Cancer of the skin, basal cell Comment: excised 04/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 No date: Cervical spondylosis without myelopathy 03/30/2023: Chronic renal failure, stage 3a ([facility]) 03/15/2021: COPD (chronic obstructive pulmonary disease) ([facility]) 09/09/2021: Diabetic eye exam ([facility]) Comment: Last done 09/09/[address] Juve Reza 06/04/2023: Dilated aortic root ([facility]) Comment: Seeing [facility] 10/06/2021: Discoloration and thickening of nails both feet 07/04/2022: ED (erectile dysfunction) of organic origin 06/04/2023: Enlarged LA (left atrium) Comment: Seeing [facility] 06/13/2018: Essential hypertension Comment: -On lisinopril 10mg daily ( home med) -Will d/c for now given hyperkalemia . 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[facility]) Comment: --ppx ACV and cipro 12/16/2022: Increased weakness when ambulating No date: Inflammatory polyarthropathy ([facility]) 01/02/2018: Leg DVT (deep venous thromboembolism), acute, left ([facility]) Comment: --acute DVT gastrocnemius found 12/13/2017 --continue apixaban till platelets <50K, last dose 06/21/2018 09/30/2022: Living will on file at physician's office Comment: DPA: BREN () 04/22/2021: Low serum vitamin B12 No date: Lumbar spinal stenosis 10/06/2021: Medicare annual wellness visit, subsequent Comment: Medicare part B: Not able to find, Last done: 10/06/2021 10/31/2006: Mixed hyperlipidemia Comment: --will hold atorvastatin d/t interactions with chemotherapy can resume at discharge 11/28/2017: Multiple myeloma (HCC) No date: Multiple myeloma in remission ([facility]) 10/01/2012: Obesity, Class I, BMI 30-34.9 No date: Osteoarthritis of both hands 06/25/2018: Pancytopenia due to chemotherapy ([facility]) Comment: --Transfuse PRBC and platelets per protocol --GCSF 06/07/2005: Peripheral autonomic neuropathy in disorders classified elsewhere 10/23/2019: Pulmonary hypertension, unspecified ([facility]) 11/13/2006: Spinal stenosis, lumbar region, without neurogenic claudication 12/27/2011: Tobacco abuse Comment: Quit 201204/12/2018: Type 2 diabetes mellitus without complication, without long-term current use of insulin ([facility]) 01/06/2014: Venous insufficiency, peripheral 12/31/2014: Vitamin D deficiency 12/16/2022: Weakness of both lower extremities Previous Surgical History PAST SURGICAL HISTORY 01/28/2013: ANES ARTHROSCOPIC TOTAL SHOULDER REPLACEMENT; Right Comment: [facility] - complete right shoulder replaceement 2008: ARTHRD ANT INTERBODY MIN DSC LUMBAR 1980: ARTHROTOMY W/MENISCUS REPAIR KNEE Comment: RIGHT 1981: ARTHROTOMY W/MENISCUS REPAIR KNEE Comment: LEFT 2007: ARTHRP KNE CONDYLE&PLATU MEDIAL&LAT COMPARTMENTS; Right Comment: Knee replacement, total No date: BACK SURGERY HX 09/25/2012: COLONOSCOPY FLX DX W/COLLJ SPEC WHEN PFRMD Comment: normal colonoscopy - 10 year follow up 09/25/2012: EGD TRANSORAL BIOPSY SINGLE/MULTIPLE Comment: mild distal esophagitis 2021: HAND BILATERAL OP SURGERY Comment: trigger finger/ cyst removal No date: JOINT REPLACEMENT HX; Right Comment: shoulder 08/21/2023: NLYW-FYLO-DSBHNUEWYAYI-TOTAL REPLACE/BOTH COMPART; Left 2007: HARRIS W/O FACETEC FORAMOT/DSC 1/2 VRT SGM CRV Comment: Laminectomy, cervical 08/23/2021: PAST SURGICAL HISTORY OF; Right Comment: carpal tunnel release with wrist arthrotomy and synovectomy 08/23/2021: PAST SURGICAL HISTORY OF; Right Comment: ulnar nerve decompression 12/28/2022: PAST SURGICAL HISTORY OF Comment: bilateral revision lainectomy L1-L2, T11-T12 2023: REMV CATARACT EXTRACAP,INSERT LENS; Bilateral Comment: 11/2023 No date: SKIN BIOPSY HX No date: TONSILLECTOMY HX Family History FAMILY HISTORY Problem Relation Age of Onset None Mother Cancer Father PANCREAS Diabetes Father Diabetes Sister None Brother Diabetes Paternal Grandmother COPD No Family History Asthma No Family History Patient Allergies ALLERGIES Allergen Reactions Gabapentin Other: See Comments Depression/suicidal ideation Current Medications Current Outpatient Medications on File Prior to Visit Medication Sig doxycycline monohydrate (MONODOX) 100 mg capsule TAKE 1 CAPSULE BY MOUTH TWICE DAILY FOR 28 DAYS oxyCODONE IR (ROXICODONE) 5 mg immediate release tablet TAKE ONE-HALF TO ONE TABLET BY MOUTH EVERY 4 HOURS NEEDED FOR PAIN amoxicillin-clavulanate potassium (AUGMENTIN) 875-125 mg per tablet Take 1 tablet by mouth every 12hours. atorvastatin (LIPITOR) 40 mg tablet Take 1 tablet by mouth once daily. dulaglutide (TRULICITY) 3 mg/0.5 mL pen injector Inject 3 mg subcutaneously one time a week. Injectonce per week. Discard Pen After Magnesium Oxide 250 mg magnesium tab Take two in the AM and one in the PM. carvedilol (COREG) 25 mg tablet Take 0.5 tablets by mouth two times a day with meals. Per [facility] metFORMIN (GLUCOPHAGE) 1,000 mg tablet Take 1 tablet by mouth two times a day with meals. omeprazole (PRILOSEC) 40 mg capsule TAKE ONE CAPSULE BY MOUTH ONCE DAILY ON AN EMPTY STOMACH losartan (COZAAR) 25 mg tablet Take 1 tablet by mouth once daily. torsemide (DEMADEX) 20 mg tablet Take 1 tablet by mouth two times a day. . dapagliflozin propanediol (FARXIGA) 10 mg tablet Take 1 tablet by mouth once daily. Take one daily in the morning yyekqwwlusm-gkhbqszhp-burzosjc (TRELEGY ELLIPTA) 100-62.5-25 mcg inhalation powder inhale 1 puff bymouth and INTO THE LUNGS once daily aspirin, enteric coated (ASPIRIN, ENTERIC COATED) 81 mg EC tablet Take 1 tablet by mouth once daily. Cholecalciferol, Vitamin D3, (VITAMIN D-3) 50 mcg (2,000 unit) cap Take 1 capsule by mouth once daily. terbinafine HCl (LAMISIL) 250 mg tablet Take 1 tablet by mouth once daily. cyanocobalamin (VITAMIN B-12) 1,000 mcg tab Take 1 tablet by mouth once daily. Calcium-Cholecalciferol, D3, 600 mg-5 mcg (200 unit) cap Take 1 capsule by mouth once daily. No current facility-administered medications on file prior to visit. Social History Social History Tobacco Use Smoking status: Former Current packs/day: 0.00 Average packs/day: 1 pack/day for 41.0 years (41.0 ttl pk-yrs) Types: Pipe, Cigarettes Start date: 1971 Quit date: 12/09/2011 Years since quittin.4 Smokeless tobacco: Never Tobacco comments: 1/4 pack of cigs; pipe smoker. None of either since cessation. No ETS in childhood home. Smoked up to one ppd Vaping Use Vaping status: Never Used Substance Use Topics Alcohol use: Yes Alcohol/week: 1.0 standard drink of alcohol Types: 1 Cans of beer per week Comment: seldom Drug use: Never Review of Symptoms REVIEW OF SYSTEMS GENERAL: No weight loss, malaise or fevers RESPIRATORY: Negative for cough, hemoptysis, wheezing, COPD, dyspnea or shortness of breath CARDIOVASCULAR: Negative for chest pain, leg swelling, hypertension, CHF or palpitations EXAM: BP 128/72 (BP Site: Left Arm, BP Position: Sitting, BP Cuff Size: Regular Adult) Pulse 69 Temp 36.3 C (97.4 F) Resp 18 Wt 97.1 kg (214 lb) SpO2 95% BMI 31.60 kg/m General Appearance: Well appearing, alert, in no acute distress, well-hydrated, well nourished. andOverweight. Skin: mild soft tissue swelling still evident but no erythema or tenderness. Sutures in place and lacerations well approximated. No drainage/discharge.. Sutures removed without incident. Steri strips placed. Lungs: Lungs clear to auscultation. No wheezing, rhonchi, rales.. Heart: RRR without murmur, gallop, or rubs. No ectopy. Health Maintenance List Depression Screening Never done Anxiety Screening Never done RSV Vaccine(1 - 1-dose 60+ series) Never done Advance Directive Discussion due on 09/18/2023 Diabetic Foot Exam due on 09/30/2023 Covid-19 Vaccine( season) due on 05/19/2024 Influenza Vaccine(1) due on 05/19/2024 Lung Cancer Screening due on 07/31/2024 Dilated Retinal Exam due on 09/22/2024 Colorectal Cancer Screening due on 10/17/2024 HbA1C due on 10/17/2024 Urine Albumin:Creatinine Ratio due on 04/16/2025 LDL Cholesterol due on 04/16/2025 Annual PCP Team Chronic Disease Visit due on 04/16/2025 Serum Creatinine due on 04/26/2025 BP Controlled (<130/80) due on 05/03/2025 DTaP,Tdap,Td Vaccine(6 - Td or Tdap) due on 09/23/2029 Spirometry Completed Abdominal Aortic Aneurysm Screening Completed Shingrix Vaccine Completed Pneumococcal Vaccine: 65+ Completed HPV Vaccine Aged Out Alpha-1 Antitrypsin Deficiency Screening Discontinued Hepatitis C Screening Discontinued Data reviewed See HPI ASSESSMENT/PLAN: 1. Pyogenic arthritis of right elbow, due to unspecified organism (HCC) - ICD9: 711.02, ICD10: M00.9 (primary diagnosis) Continue atb as prescribed by infectious disease. Will set up follow up with ID. ? If true septic arthritis as cultures did not grow. Will discuss with PCP as well. Sutures removed without incident - CONSULT TO INFECTIOUS DISEASES - C-REACTIVE PROTEIN - CREATINE KINASE/CK 2. Iron deficiency anemia, unspecified iron deficiency anemia type - ICD9: 280.9, ICD10: D50.9 Recheck levels today Patient declines colonoscopy at this time. - COMPLETE BLOOD COUNT AND DIFFERENTIAL - IRON AND TIBC - VITAMIN B12 - FOLATE, SERUM - FERRITIN 3. Essential hypertension - ICD9: 401.9, ICD10: I10 - Controlled - Continue current medications and close monitoring. - Recommend home blood pressure monitoring, to bring results to next visit - Encouraged sodium restriction, DASH or Mediterranean diet - Recommend regular aerobic exercise 4. Pseudogout - ICD9: 275.49, 712.20, ICD10: M11.20 See above. Leslye Winter PA-C I spent a total of 45 minutes on the date of the service which included preparing to see the patient, qwhj-[id number] patient care, completing clinical documentation, obtaining and/or reviewing separately obtained history, performing a medically appropriate examination, counseling and educating the pat ient/family/caregiver, ordering medications, tests, or procedures, communicating with other HCPs (not separately reported), and communicating results to the patient/family/caregiver. [facility] Tele[facility] encounter Note * Telephone Encounter - Marta Lui RN - 05/10/2024 11:21 AM EDT Requestor:Patient Patient is identified by name and birthdate: Yes Patient reminded to check with pharmacy in 24-48 hours: Yes Prescriber Verified: Yes Pharmacy benefits have been verified: No Pharmacy updated in Epic: Yes Is medication controlled substance: No Medication instructions verified (dose, dosing instructions [sig], dispense amount [30 or 90 day supply], refills): Yes -If medication is not on the MAR please get additional information Are any other medications due for a refill in the next 3 months: No Pt states he only has a few pills left Requested Prescriptions Pending Prescriptions Disp Refills atorvastatin (LIPITOR) 40 mg tablet 90 tablet 1 Sig: Take 1 tablet by mouth once daily. [facility]08-23-[facility]24 Miscellaneous Notes* Telephone Encounter - Marta Lui RN - 05/10/2024 11:21 AM EDT Requestor:Patient Patient is identified by name and birthdate: Yes Patient reminded to check with pharmacy in 24-48 hours: Yes Prescriber Verified: Yes Pharmacy benefits have been verified: No Pharmacy updated in Epic: Yes Is medication controlled substance: No Medication instructions verified (dose, dosing instructions [sig], dispense amount [30 or 90 day supply], refills): Yes -If medication is not on the MAR please get additional information Are any other medications due for a refill in the next 3 months: No Pt states he only has a few pills left Requested Prescriptions Pending Prescriptions Disp Refills atorvastatin (LIPITOR) 40 mg tablet 90 tablet 1 Sig: Take 1 tablet by mouth once daily. documented in this encounterSam[facility]08-[facility]-2024 NoteHNO ID: [id number] Author: MARTA LUI RN Service: ? Author Type: Registered Nurse Type: Progress Notes Filed: 05/10/2024 11:26 Note Text: CD Telephonic Outreach Provider Action/FYI N/A Contacted for: Routine Telephonic Outreach Contact made with patient: Yes Patient identified by name and date of . Discussed care with patient Are you experiencing any new or worsening symptoms you need to talk about today? No Disease Specific Do you check your blood pressure at home? Yes, Enter readings: 115/60s Last checked about a week and a half ago Do you have new or worsening shortness of breath with activity? No Do you have new or worsening cough? No Do you have new or worsening wheezing? No Do you need to use your rescue (Albuterol) inhaler or nebulizer more often than normal? No Based on stitching machine feeder or offbearer, the following disposition is advised: No symptoms or symptoms present, not severe. Routed to: No Action Needed MACO Education Provided this Outreach: No Upcoming appointments reviewed: Appointments for Next 60 Days Date Time Provider Location Dept Phone 05/27/2024 10:00 AM H[facility] WARD [phone] 05/29/2024 8:00 AM [facility] Matthew Wilcox [phone] 05/29/2024 9:20 AM [facility] (I-STAT/1.5T) Matthew Wilcox [phone] 05/30/2024 9:20 AM [facility] [phone] Marta Lui RN May 10, 2024 11:25 [facility]08-23-2024 History of Present illness Narrative* Marta Lui RN - 05/10/2024 11:15 AM EDT [facility] Telephonic Outreach Provider Action/FYI N/A Contacted for: Routine Telephonic Outreach Contact made with patient: Yes Patient identified by name and date of . Discussed care with patient Are you experiencing any new or worsening symptoms you need to talk about today? No Disease Specific Do you check your blood pressure at home? Yes, Enter readings: 115/60s Last checked about a week and a half ago Do you have new or worsening shortness of breath with activity? No Do you have new or worsening cough? No Do you have new or worsening wheezing? No Do you need to use your rescue (Albuterol) inhaler or nebulizer more often than normal? No Based on stitching machine feeder or offbearer, the following disposition is advised: No symptoms or symptoms present, not severe. Routed to: No Action Needed MACO Education Provided this Outreach: No Upcoming appointments reviewed: Appointments for Next 60 Days Date Time Provider Location Dept Phone 05/27/2024 10:00 AM HAYDE WARD [facility] [phone] 05/29/2024 8:00 [facility] [phone] 05/29/2024 9:20 AM MRI [facility] (I-STAT/1.5T) [place] [phone] 05/30/2024 9:20 AM [facility] [phone] Marta Lui RN May 10, 2024 11:25 AM documented in this encounterSam[facility]08-23-2024 NotePatient Outreach ([facility]) RONNIE YARBROUGH I ([id number]) 1950 M Date Time Provider Department 05/10/24 MARTA LUI During your visit today, we recorded the following information about you: Marta Lui RN 05/10/2024 11:26 AM Signed CDM Telephonic Outreach Provider Action/FYI N/A Contacted for: Routine Telephonic Outreach Contact made with patient: Yes Patient identified by name and date of . Discussed care with patient Are you experiencing any new or worsening symptoms you need to talk about today? No Disease Specific Do you check your blood pressure at home? Yes, Enter readings: 115/60s Last checked about a week and a half ago Do you have new or worsening shortness of breath with activity? No Do you have new or worsening cough? No Do you have new or worsening wheezing? No Do you need to use your rescue (Albuterol) inhaler or nebulizer more often than normal? No Based on stitching machine feeder or offbearer, the following disposition is advised: No symptoms or symptoms present, not severe. Routed to: No Action Needed MACO Education Provided this Outreach: No Upcoming appointments reviewed: Appointments for Next 60 Days Date Time Provider Location Dept Phone 05/27/2024 10:00 AM HAYDE WARD [facility] [phone] 05/29/2024 8:00 AM [facility] Sabi [phone] 05/29/2024 9:20 AM MRI [facility] (I-STAT/1.5T) [place] [phone] 05/30/2024 9:20 AM [facility] [phone] Marta Lui RN May 10, 2024 11:25 AM Allergies As of Date: 05/10/2024 Noted Allergy Reaction GABAPENTIN 06/24/2018 14 - Other: See Comments Comments: Depression/suicidal ideation Date Reviewed: 05/03/2024 Reviewed by: Morena Leal Ma, MA - Fully Assessed Reason for Visit: Community Monitoring Outreach [Other] Cmt: Telephonic Outreach CDM Home Monitoring Prescriptions as of 05/10/2024 - dulaglutide (TRULICITY) 3 mg/0.5 mL pen injector Inject 3 mg subcutaneously one time a week. Inject once per week. Discard Pen After - Magnesium Oxide 250 mg magnesium tab Take two in the AM and one in the PM. - carvedilol (COREG) 25 mg tablet Take 0.5 tablets by mouth two times a day with meals. Per [facility] - metFORMIN (GLUCOPHAGE) 1,000 mg tablet Take 1 tablet by mouth two times a day with meals. - omeprazole (PRILOSEC) 40 mg capsule TAKE ONE CAPSULE BY MOUTH ONCE DAILY ON AN EMPTY STOMACH - losartan (COZAAR) 25 mg tablet Take 1 tablet by mouth once daily. - torsemide (DEMADEX) 20 mg tablet Take 1 tablet by mouth two times a day. . - dapagliflozin propanediol (FARXIGA) 10 mg tablet Take 1 tablet by mouth once daily. Take one daily in the morning - atorvastatin (LIPITOR) 40 mg tablet Take 1 tablet by mouth once daily. - dymiiulquol-xcasfpfgz-dntglpiw (TRELEGY ELLIPTA) 100-62.5-25 mcg inhalation powder inhale 1 puff by mouth and INTO THE LUNGS once daily - aspirin, enteric coated (ASPIRIN, ENTERIC COATED) 81 mg EC tablet Take 1 tablet by mouth once daily. - Cholecalciferol, Vitamin D3, (VITAMIN D-3) 50 mcg (2,000 unit) cap Take 1 capsule by mouth once daily. - terbinafine HCl (LAMISIL) 250 mg tablet Take 1 tablet by mouth once daily. - cyanocobalamin (VITAMIN B-12) 1,000 mcg tab Take 1 tablet by mouth once daily. - Calcium-Cholecalciferol, D3, 600 mg-5 mcg (200 unit) cap Take 1 capsule by mouth once daily. Problem List As Of Date 05/10/2024 Noted Resolved Peripheral autonomic neuropathy in disorders cl*06/07/2005 Mixed hyperlipidemia [E78.2] 10/31/2006 Spinal stenosis, lumbar region, without neuroge*11/13/2006 GERD (gastroesophageal reflux disease) [K21.9] 12/27/2011 Tobacco abuse [Z72.0] 12/27/2011 10/01/2012 Special screening for malignant neoplasms, colo*09/06/2012 06/13/2018 Esophagitis, unspecified [K20.90] 09/25/2012 01/06/2014 Obesity, Class I, BMI 30-34.9 [E66.9] 10/01/2012 Venous insufficiency, peripheral [I87.2] 01/06/2014 11/25/2019 Acute bronchitis with chronic obstructive pulmo*12/30/2014 06/26/2017 Vitamin D deficiency [E55.9] 12/31/2014 Class 1 obesity due to excess calories with ser*06/26/2017 11/25/2019 Multiple myeloma (HCC) [C90.00] 11/28/2017 Adjustment insomnia [F51.02] 12/07/2017 05/14/2018 Multiple myeloma in remission (HCC) [C90.01] 12/07/2017 Leg DVT (deep venous thromboembolism), acute, l*01/02/2018 11/25/2019 Type 2 diabetes mellitus without complication, *04/12/2018 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 Author Type: Physician Type: Progress Notes Filed: 05/03/2024 12:16 Note Text: (Elements copied from my note dated May 03, 2023, have been reviewed and updated where appropriate, and all reflect current assessment and medical decision making from today's encounter, May 03, 2024) HISTORY OF PRESENT ILLNESS: Ronnie Yarbrough is a 73 year old male for oncologic surveillance on multiple myeloma. He was initially treated with combination of Revlimid/Velcade and dexamethasone and with obtained remission underwent stem cell transplant. He had maintenance Revlimid and dexamethasone following that for 18 months. He has been off any treatments and continues with a remission for approximately 5 years. CLINICAL IMPRESSION: Myeloma in remission, no current treatment or maintenance. RECOMMENDATION/PLAN: 1. Repeat labs 6 months, his usual follow up interval 2. Will visit virtually after labs in 6 months. Written and verbal health teaching given to patient, patient verbalizes understanding and agrees with treatment plan. PAST MEDICAL HISTORY 02/24/2023: Acute thromboembolism of deep veins of both lower extremities (HCC) Comment: Dellaqualeksey started 02/2023, can stop 08/202309/30/2022: Advance directive discussed with patient Comment: Discussed 09/2022: up to date 03/15/2021: Allergic rhinitis 12/16/2022: At high risk for falls 06/13/2018: 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[facility]) Comment: Day: +12; Engrafted Protocol(s): 3422 1C Preparative regimen: melphalan Mobilization regimen: neupogen and plerixafor Stem cell source: apheresis CD34 cell dose (x10e6/kg): 5.14 Date of transplant: 06/15/2018 09/30/2022: Bilateral leg edema 04/21/2021: Cancer of the skin, basal cell Comment: excised 04/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 No date: Cervical spondylosis without myelopathy 03/30/2023: Chronic renal failure, stage 3a ([facility]) 03/15/2021: COPD (chronic obstructive pulmonary disease) ([facility]) 09/09/2021: Diabetic eye exam ([facility]) Comment: Last done 09/09/[address] Juve Reza 06/04/2023: Dilated aortic root ([facility]) Comment: Seeing [facility] 10/06/2021: Discoloration and thickening of nails both feet 07/04/2022: ED (erectile dysfunction) of organic origin 06/04/2023: Enlarged LA (left atrium) Comment: Seeing [facility] 06/13/2018: Essential hypertension Comment: -On lisinopril 10mg daily ( home med) -Will d/c for now given hyperkalemia . 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[facility]) Comment: --ppx ACV and cipro 12/16/2022: Increased weakness when ambulating No date: Inflammatory polyarthropathy ([facility]) 01/02/2018: Leg DVT (deep venous thromboembolism), acute, left ([facility]) Comment: --acute DVT gastrocnemius found 12/13/2017 --continue apixaban till platelets <50K, last dose 06/21/2018 09/30/2022: Living will on file at physician's office Comment: DPA: BREN () 04/22/2021: Low serum vitamin B12 No date: Lumbar spinal stenosis 10/06/2021: Medicare annual wellness visit, subsequent Comment: Medicare part B: Not able to find, Last done: 10/06/2021 10/31/2006: Mixed hyperlipidemia Comment: --will hold atorvastatin d/t interactions with chemotherapy can resume at discharge 11/28/2017: Multiple myeloma (HCC) No date: Multiple myeloma in remission ([facility]) 10/01/2012: Obesity, Class I, BMI 30-34.9 No date: Osteoarthritis of both hands 06/25/2018: Pancytopenia due to chemotherapy ([facility]) Comment: --Transfuse PRBC and platelets per protocol --GCSF 06/07/2005: Peripheral autonomic neuropathy in disorders classified elsewhere 10/23/2019: Pulmonary hypertension, unspecified ([facility]) 11/13/2006: Spinal stenosis, lumbar region, without neurogenic claudication 12/27/2011: Tobacco abuse Comment: Quit 201204/12/2018: Type 2 diabetes mellitus without complication, without long-term current use of insulin ([facility]) 01/06/2014: Venous insufficiency, peripheral 12/31/2014: Vitamin D deficiency 12/16/2022: Weakness of both lower extremities PAST SURGICAL HISTORY 01/28/2013: ANES ARTHROSCOPIC TOTAL SHOULDER REPLACEMENT; Right Comment: [facility] - complete right shoulder replaceement 2009: ARTHRD ANT INTERBODY MIN DSC LUMBAR 1981: ARTHROTOMY W/MENISCUS REPAIR KNEE Comment: RIGHT 1982: ARTHROTOMY W/MENISCUS REPAIR KNEE Comment: LEFT 2008: ARTHRP KNE CONDYLEANDPLATU MEDIALANDLAT COMPARTMENTS; Right Comment: Knee replacement, total No date: BACK SURGERY HX 09/25/2012: COLONOSCOPY FLX DX W/COLLJ SPEC WHEN PFRMD Comment: normal colonoscopy - 10 year follow up 09/25/2012: EGD TRANSORAL BIOPSY SINGLE/MULTIPLE Comment: mild distal esophagitis 2021: HAND BILATERAL OP S (more content not included)...[facility]08-16-2024 History of Present illness Narrative* Murray Mooney MD - 05/03/2024 10:21 AM EDT (Elements copied from my note dated May 03, 2023, have been reviewed and updated where appropriate, and all reflect current assessment and medical decision making from today's encounter, May 03, 2024) HISTORY OF PRESENT ILLNESS: Ronnie Yarbrough is a 73 year old male for oncologic surveillance on multiple myeloma. He was initially treated with combination of Revlimid/Velcade and dexamethasone and with obtained remission underwent stem cell transplant. He had maintenance Revlimid and dexamethasone following that for 18 months. He has been off any treatments and continues with a remission for approximately 5 years. CLINICAL IMPRESSION: Myeloma in remission, no current treatment or maintenance. RECOMMENDATION/PLAN: 1. Repeat labs 6 months, his usual follow up interval 2. Will visit virtually after labs in 6 months. Written and verbal health teaching given to patient, patient verbalizes understanding and agrees with treatment plan. PAST MEDICAL HISTORY 02/24/2023: Acute thromboembolism of deep veins of both lower extremities ([facility]) Comment: Eliquis started 02/2023, can stop 08/202309/30/2022: Advance directive discussed with patient Comment: Discussed 09/2022: up to date 03/15/2021: Allergic rhinitis 12/16/2022: At high risk for falls 06/13/2018: 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[facility]) Comment: Day: +12; Engrafted Protocol(s): 3422 1C Preparative regimen: melphalan Mobilization regimen: neupogen and plerixafor Stem cell source: apheresis CD34 cell dose (x10e6/kg): 5.14 Date of transplant: 06/15/2018 09/30/2022: Bilateral leg edema 04/21/2021: Cancer of the skin, basal cell Comment: excised 04/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 No date: Cervical spondylosis without myelopathy 03/30/2023: Chronic renal failure, stage 3a ([facility]) 03/15/2021: COPD (chronic obstructive pulmonary disease) ([facility]) 09/09/2021: Diabetic eye exam ([facility]) Comment: Last done 09/09/[address] Juve Reza 06/04/2023: Dilated aortic root ([facility]) Comment: Seeing [facility] 10/06/2021: Discoloration and thickening of nails both feet 07/04/2022: ED (erectile dysfunction) of organic origin 06/04/2023: Enlarged LA (left atrium) Comment: Seeing [facility] 06/13/2018: Essential hypertension Comment: -On lisinopril 10mg daily ( home med) -Will d/c for now given hyperkalemia . 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[facility]) Comment: --ppx ACV and cipro 12/16/2022: Increased weakness when ambulating No date: Inflammatory polyarthropathy ([facility]) 01/02/2018: Leg DVT (deep venous thromboembolism), acute, left ([facility]) Comment: --acute DVT gastrocnemius found 12/13/2017 --continue apixaban till platelets <50K, last dose 06/21/2018 09/30/2022: Living will on file at physician's office Comment: DPA: BREN () 04/22/2021: Low serum vitamin B12 No date: Lumbar spinal stenosis 10/06/2021: Medicare annual wellness visit, subsequent Comment: Medicare part B: Not able to find, Last done: 10/06/2021 10/31/2006: Mixed hyperlipidemia Comment: --will hold atorvastatin d/t interactions with chemotherapy can resume at discharge 11/28/2017: Multiple myeloma ([facility]) No date: Multiple myeloma in remission ([facility]) 10/01/2012: Obesity, Class I, BMI 30-34.9 No date: Osteoarthritis of both hands 06/25/2018: Pancytopenia due to chemotherapy ([facility]) Comment: --Transfuse PRBC and platelets per protocol --GCSF 06/07/2005: Peripheral autonomic neuropathy in disorders classified elsewhere 10/23/2019: Pulmonary hypertension, unspecified ([facility]) 11/13/2006: Spinal stenosis, lumbar region, without neurogenic claudication 12/27/2011: Tobacco abuse Comment: Quit 201204/12/2018: Type 2 diabetes mellitus without complication, without long-term current use of insulin ([facility]) 01/06/2014: Venous insufficiency, peripheral 12/31/2014: Vitamin D deficiency 12/16/2022: Weakness of both lower extremities PAST SURGICAL HISTORY 01/28/2013: ANES ARTHROSCOPIC TOTAL SHOULDER REPLACEMENT; Right Comment: [facility] - complete right shoulder replaceement 2009: ARTHRD ANT INTERBODY MIN DSC LUMBAR 1981: ARTHROTOMY W/MENISCUS REPAIR KNEE Comment: RIGHT 1981: ARTHROTOMY W/MENISCUS REPAIR KNEE Comment: LEFT 2007: ARTHRP KNE CONDYLE&PLATU MEDIAL&LAT COMPARTMENTS; Right Comment: Knee replacement, total No date: BACK SURGERY HX 09/25/2012: COLONOSCOPY FLX DX W/COLLJ SPEC WHEN PFRMD Comment: normal colonoscopy - 10 year follow up 09/25/2012: EGD TRANSORAL BIOPSY SINGLE/MULTIPLE Comment: mild distal esophagitis 2021: HAND BILATERAL OP SURGERY Comment: trigger finger/ cyst removal No date: JOINT REPLACEMENT HX; Right Comment: shoulder 08/21/2023: PDMT-CKGL-[id number]-TOTAL REPLACE/BOTH COMPART; Left 2007: HARRIS W/O FACETEC FORAMOT/DSC 09/19 VRT SGM CRV Comment: Laminectomy, cervical 08/23/2021: PAST SURGICAL HISTORY OF; Right Comment: carpal tunnel release with wrist arthrotomy and synovectomy 08/23/2021: PAST SURGICAL HISTORY OF; Right Comment: ulnar nerve decompression 12/28/2022: PAST SURGICAL HISTORY OF Comment: bilateral revision lainectomy L1-L2, T11-T12 2023: REMV CATARACT EXTRACAP,INSERT LENS; Bilateral Comment: 11/2023 No date: SKIN BIOPSY HX No date: TONSILLECTOMY HX FAMILY HISTORY Problem Relation Age of Onset None Mother Cancer Father PANCREAS Diabetes Father Diabetes Sister None Brother Diabetes Paternal Grandmother COPD No Family History Asthma No Family History Social History Tobacco Use Smoking status: Former Packs/day: 1.00 Years: 41.00 Additional pack years: 0.00 Total pack years: 41.00 Types: Pipe, Cigarettes Start date: 1970 Quit date: 12/09/2011 Years since quittin.4 Smokeless tobacco: Never Tobacco comments: 1/4 pack of cigs; pipe smoker. None of either since cessation. No ETS in childhood home. Smoked up to one ppd Vaping Use Vaping Use: Never used Substance Use Topics Alcohol use: Yes Alcohol/week: 1.0 standard drink of alcohol Types: 1 Cans of beer per week Comment: seldom Drug use: Never ALLERGIES: ALLERGIES Allergen Reactions Gabapentin Other: See Comments Depression/suicidal ideation CURRENT OUTPATIENT MEDICATIONS: dulaglutide (TRULICITY) 3 mg/0.5 mL pen injector Inject 3 mg subcutaneously one time a week. Injectonce per week. Discard Pen After Magnesium Oxide 250 mg magnesium tab Take two in the AM and one in the PM. carvedilol (COREG) 25 mg tablet Take 0.5 tablets by mouth two times a day with meals. Per [facility] metFORMIN (GLUCOPHAGE) 1,000 mg tablet Take 1 tablet by mouth two times a day with meals. omeprazole (PRILOSEC) 40 mg capsule TAKE ONE CAPSULE BY MOUTH ONCE DAILY ON AN EMPTY STOMACH losartan (COZAAR) 25 mg tablet Take 1 tablet by mouth once daily. torsemide (DEMADEX) 20 mg tablet Take 1 tablet by mouth two times a day. . dapagliflozin propanediol (FARXIGA) 10 mg tablet Take 1 tablet by mouth once daily. Take one daily in the morning atorvastatin (LIPITOR) 40 mg tablet Take 1 tablet by mouth once daily. tpgelsrdtmr-uwaflgrdj-fotaudgw (TRELEGY ELLIPTA) 100-62.5-25 mcg inhalation powder inhale 1 puff bymouth and INTO THE LUNGS once daily aspirin, enteric coated (ASPIRIN, ENTERIC COATED) 81 mg EC tablet Take 1 tablet by mouth once daily. Cholecalciferol, Vitamin D3, (VITAMIN D-3) 50 mcg (2,000 unit) cap Take 1 capsule by mouth once daily. terbinafine HCl (LAMISIL) 250 mg tablet Take 1 tablet by mouth once daily. cyanocobalamin (VITAMIN B-12) 1,000 mcg tab Take 1 tablet by mouth once daily. Calcium-Cholecalciferol, D3, 600 mg-5 mcg (200 unit) cap Take 1 capsule by mouth once daily. REVIEW OF SYSTEMS: GENERAL: No fever, night sweats, weight loss or malaise. All other reviewed and negative other than HPI. PHYSICAL EXAMINATION: VITAL SIGNS: BP 115/65 Pulse 87 Temp (Src) 97.4 (Temporal) Wt 211 lb (95.7kg) SpO2 95% GENERAL APPEARANCE: Well appearing, in no acute distress, alert and oriented x3, well-hydrated, well nourished. I spent a total of 20 minutes on the date of the service which included preparing to see the patient, yfua-qy-vljj patient care, completing clinical documentation, obtaining and/or reviewing separately obtained history, counseling and educating the patient/family/caregiver, ordering medications, td ts, or procedures, independently interpreting results (not separately reported), and communicating results to the patient/family/caregiver. Electronically Signed: Murray Mooney MD May 03, 2024 documented in this encounter[facility]24 NoteHNO ID: [id number] Author: MARTA LUI RN Service: ? Author Type: Registered Nurse Type: Progress Notes Filed: 04/26/2024 14:30 Note Text: CDM Telephonic Outreach Provider Action/FYI N/A 2nd attempt Contacted for: Routine Telephonic Outreach Contact made with patient: No, left message. Marta Lui RN April 26, 2024 2:30 [facility]08-09-2024 History of Present illness Narrative* Marta Lui RN - 04/26/2024 2:28 PM EDT CD Telephonic Outreach Provider Action/ANJU N/A 2nd attempt Contacted for: Routine Telephonic Outreach Contact made with patient: No, left message. Marta Lui RN April 26, 2024 2:30 PM documented in this encounterSam[facility]08-[facility]-2024 NotePatient Outreach ([facility]) RONNIE YARBROUGH I ([id number]) 1950 M Date Time Provider Department 04/26/24 MARTA LUI During your visit today, we recorded the following information about you: Marta Lui RN 04/26/2024 2:30 PM Signed CD Telephonic Outreach Provider Action/ANJU N/A 2nd attempt Contacted for: Routine Telephonic Outreach Contact made with patient: No, left message. Marta Lui RN April 26, 2024 2:30 PM Allergies As of Date: 04/26/2024 Noted Allergy Reaction GABAPENTIN 06/24/2018 14 - Other: See Comments Comments: Depression/suicidal ideation Date Reviewed: 04/16/2024 Reviewed by: Ovidio Vincent MD - Fully Assessed Reason for Visit: Community Monitoring Outreach [Other] Cmt: 2nd attempt Telephonic Outreach CDM Home Monitoring Prescriptions as of 04/26/2024 - dulaglutide (TRULICITY) 3 mg/0.5 mL pen injector Inject 3 mg subcutaneously one time a week. Inject once per week. Discard Pen After - Magnesium Oxide 250 mg magnesium tab Take two in the AM and one in the PM. - diazePAM (VALIUM) 2 mg tablet Take 1 tablet by mouth every 12 hours as needed for up to 15 days. - carvedilol (COREG) 25 mg tablet Take 0.5 tablets by mouth two times a day with meals. Per [facility] - metFORMIN (GLUCOPHAGE) 1,000 mg tablet Take 1 tablet by mouth two times a day with meals. - omeprazole (PRILOSEC) 40 mg capsule TAKE ONE CAPSULE BY MOUTH ONCE DAILY ON AN EMPTY STOMACH - losartan (COZAAR) 25 mg tablet Take 1 tablet by mouth once daily. - torsemide (DEMADEX) 20 mg tablet Take 1 tablet by mouth two times a day. . - dapagliflozin propanediol (FARXIGA) 10 mg tablet Take 1 tablet by mouth once daily. Take one daily in the morning - atorvastatin (LIPITOR) 40 mg tablet Take 1 tablet by mouth once daily. - ydfpmbxiwvj-iiacfsujw-jpdwnxan (TRELEGY ELLIPTA) 100-62.5-25 mcg inhalation powder inhale 1 puff by mouth and INTO THE LUNGS once daily - aspirin, enteric coated (ASPIRIN, ENTERIC COATED) 81 mg EC tablet Take 1 tablet by mouth once daily. - Cholecalciferol, Vitamin D3, (VITAMIN D-3) 50 mcg (2,000 unit) cap Take 1 capsule by mouth once daily. - terbinafine HCl (LAMISIL) 250 mg tablet Take 1 tablet by mouth once daily. - cyanocobalamin (VITAMIN B-12) 1,000 mcg tab Take 1 tablet by mouth once daily. - Calcium-Cholecalciferol, D3, 600 mg-5 mcg (200 unit) cap Take 1 capsule by mouth once daily. Problem List As Of Date 04/26/2024 Noted Resolved Peripheral autonomic neuropathy in disorders cl*06/07/2005 Mixed hyperlipidemia [E78.2] 10/31/2006 Spinal stenosis, lumbar region, without neuroge*11/13/2006 GERD (gastroesophageal reflux disease) [K21.9] 12/27/2011 Tobacco abuse [Z72.0] 12/27/2011 10/01/2012 Special screening for malignant neoplasms, colo*09/06/2012 06/13/2018 Esophagitis, unspecified [K20.90] 09/25/2012 01/06/2014 Obesity, Class I, BMI 30-34.9 [E66.9] 10/01/2012 Venous insufficiency, peripheral [I87.2] 01/06/2014 11/25/2019 Acute bronchitis with chronic obstructive pulmo*12/30/2014 06/26/2017 Vitamin D deficiency [E55.9] 12/31/2014 Class 1 obesity due to excess calories with ser*06/26/2017 11/25/2019 Multiple myeloma (HCC) [C90.00] 11/28/2017 Adjustment insomnia [F51.02] 12/07/2017 05/14/2018 Multiple myeloma in remission (HCC) [C90.01] 12/07/2017 Leg DVT (deep venous thromboembolism), acute, l*01/02/2018 11/25/2019 Type 2 diabetes mellitus without complication, *04/12/2018 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, T38.0X5A]04/19/2018 05/14/2018 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] 06/13/2018 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/13/2018 Bilateral lower extremity edema [R60.0] 06/13/2018 07/17/2018 Essential hypertension [I10] 06/13/2018 JOSE ENRIQUE (acute kidney injury) (HCC) [N17.9] 06/16/2018 06/18/2018 Hyperkalemia [E87.5] 06/18/2018 2018 Chemotherapy induced nausea and vomiting [R11.2*06/18/2018 07/02/2018 Difficulty coping [R45.89] 06/20/2018 06/26/2018 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) [D61.810]06/25/2018 Fall [W19.XXXA] 07/17/2018 11/25/2019 Acute on chronic systolic CHF (congestive heart*10/04/2019 11/25/2019 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] 10/04/2019 Shortness of breath [R06.02] 10/22/2019 11/25/2019 Chest pressure [R07.89] 10/23/2019 11/25/2019 Pulmonary hypertension, unspecified (HCC) [I27.*10/23/2019 Wheezing [R06.2] 10/23/2019 11/25/2019 Lung nodules [R91.8] 10/23/2019 Ex-smoker [Z87.891] 03/15/2021 COPD (chronic obstructive pulmonary disease) (H*03/15/2021 Allergic rhinitis [J30.9] 03/15/2021 Medication management [Z79.899] 03/15/2021 Cancer of the skin, basal cell [C44.91] 04/21/2021 Low serum vitamin B12 [E53.8] 04/22/2021 Hypomagnesemia [E83.42] 04/22/2021 Diabetic eye exam (HCC) [Z01.00, E11.9] 09/09/2021 Medicare annual wellness visit, subsequent [Z00*10/06/2021 Disc (more content not included)...[facility]08-08-2024 NoteHNO ID: [id number] Author: SLIME HERNANDEZ LPN Service: ? Author Type: LICENSED NURSE Type: Progress Notes Filed: 04/25/2024 08:15 Note Text: Scan on 04/25/2024 7:40 AM by Provider External PA-C: Consultation - PT/OT/SpeechOhio[facility]-08-2024 History of Present illness Narrative* Slime Hernandez LPN - 04/25/2024 8:15 AM EDT Scan on 04/25/2024 7:40 AM by Provider, External, PA-C: Consultation - PT/OT/Speech documented in this encounterSam[facility]08-07-2024 NoteHNO ID: [id number] Author: MARTA LUI RN Service: ? Author Type: Registered Nurse Type: Progress Notes Filed: 04/24/2024 13:53 Note Text: CD Telephonic Outreach Provider Action/FYI N/A Contacted for: Routine Telephonic Outreach Contact made with patient: No, left message. Marta Lui RN April 24, 2024 1:53 [facility]08-07-2024 History of Present illness Narrative* Marta Lui RN - 04/24/2024 1:46 PM EDT CD Telephonic Outreach Provider Action/MAGDAI N/A Contacted for: Routine Telephonic Outreach Contact made with patient: No, left message. Marta Lui RN April 24, 2024 1:53 PM documented in this encounterSam[facility]08-07-2024 NotePatient Outreach ([facility]) RONNIE YARBROUGH I ([id number]) 1950 M Date Time Provider Department 04/24/24 MARTA LUI AMBSHANE During your visit today, we recorded the following information about you: Marta Lui RN 04/24/2024 1:53 PM Signed [facility] Telephonic Outreach Provider Action/FYI N/A Contacted for: Routine Telephonic Outreach Contact made with patient: No, left message. Marta Lui RN April 24, 2024 1:53 PM Allergies As of Date: 04/24/2024 Noted Allergy Reaction GABAPENTIN 06/24/2018 14 - Other: See Comments Comments: Depression/suicidal ideation Date Reviewed: 04/16/2024 Reviewed by: Ovidio Vincent MD - Fully Assessed Reason for Visit: Community Monitoring Outreach [Other] Cmt: Telephonic Outreach CDM Home Monitoring Prescriptions as of 04/24/2024 - dulaglutide (TRULICITY) 3 mg/0.5 mL pen injector Inject 3 mg subcutaneously one time a week. Inject once per week. Discard Pen After - Magnesium Oxide 250 mg magnesium tab Take two in the AM and one in the PM. - diazePAM (VALIUM) 2 mg tablet Take 1 tablet by mouth every 12 hours as needed for up to 15 days. - carvedilol (COREG) 25 mg tablet Take 0.5 tablets by mouth two times a day with meals. Per [facility] - metFORMIN (GLUCOPHAGE) 1,000 mg tablet Take 1 tablet by mouth two times a day with meals. - omeprazole (PRILOSEC) 40 mg capsule TAKE ONE CAPSULE BY MOUTH ONCE DAILY ON AN EMPTY STOMACH - losartan (COZAAR) 25 mg tablet Take 1 tablet by mouth once daily. - torsemide (DEMADEX) 20 mg tablet Take 1 tablet by mouth two times a day. . - dapagliflozin propanediol (FARXIGA) 10 mg tablet Take 1 tablet by mouth once daily. Take one daily in the morning - atorvastatin (LIPITOR) 40 mg tablet Take 1 tablet by mouth once daily. - whnkzimljab-fkhxikemp-bjrfduyv (TRELEGY ELLIPTA) 100-62.5-25 mcg inhalation powder inhale 1 puff by mouth and INTO THE LUNGS once daily - aspirin, enteric coated (ASPIRIN, ENTERIC COATED) 81 mg EC tablet Take 1 tablet by mouth once daily. - Cholecalciferol, Vitamin D3, (VITAMIN D-3) 50 mcg (2,000 unit) cap Take 1 capsule by mouth once daily. - terbinafine HCl (LAMISIL) 250 mg tablet Take 1 tablet by mouth once daily. - cyanocobalamin (VITAMIN B-12) 1,000 mcg tab Take 1 tablet by mouth once daily. - Calcium-Cholecalciferol, D3, 600 mg-5 mcg (200 unit) cap Take 1 capsule by mouth once daily. Problem List As Of Date 04/24/2024 Noted Resolved Peripheral autonomic neuropathy in disorders cl*06/07/2005 Mixed hyperlipidemia [E78.2] 10/31/2006 Spinal stenosis, lumbar region, without neuroge*11/13/2006 GERD (gastroesophageal reflux disease) [K21.9] 12/27/2011 Tobacco abuse [Z72.0] 12/27/2011 10/01/2012 Special screening for malignant neoplasms, colo*09/06/2012 06/13/2018 Esophagitis, unspecified [K20.90] 09/25/2012 01/06/2014 Obesity, Class I, BMI 30-34.9 [E66.9] 10/01/2012 Venous insufficiency, peripheral [I87.2] 01/06/2014 11/25/2019 Acute bronchitis with chronic obstructive pulmo*12/30/2014 06/26/2017 Vitamin D deficiency [E55.9] 12/31/2014 Class 1 obesity due to excess calories with ser*06/26/2017 11/25/2019 Multiple myeloma (HCC) [C90.00] 11/28/2017 Adjustment insomnia [F51.02] 12/07/2017 05/14/2018 Multiple myeloma in remission (HCC) [C90.01] 12/07/2017 Leg DVT (deep venous thromboembolism), acute, l*01/02/2018 11/25/2019 Type 2 diabetes mellitus without complication, *04/12/2018 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, T38.0X5A]04/19/2018 05/14/2018 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] 06/13/2018 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/13/2018 Bilateral lower extremity edema [R60.0] 06/13/2018 07/17/2018 Essential hypertension [I10] 06/13/2018 JOSE ENRIQUE (acute kidney injury) (HCC) [N17.9] 06/16/2018 06/18/2018 Hyperkalemia [E87.5] 06/18/2018 2018 Chemotherapy induced nausea and vomiting [R11.2*06/18/2018 07/02/2018 Difficulty coping [R45.89] 06/20/2018 06/26/2018 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) [D61.810]06/25/2018 Fall [W19.XXXA] 07/17/2018 11/25/2019 Acute on chronic systolic CHF (congestive heart*10/04/2019 11/25/2019 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] 10/04/2019 Shortness of breath [R06.02] 10/22/2019 11/25/2019 Chest pressure [R07.89] 10/23/2019 11/25/2019 Pulmonary hypertension, unspecified (HCC) [I27.*10/23/2019 Wheezing [R06.2] 10/23/2019 11/25/2019 Lung nodules [R91.8] 10/23/2019 Ex-smoker [Z87.891] 03/15/2021 COPD (chronic obstructive pulmonary disease) (H*03/15/2021 Allergic rhinitis [J30.9] 03/15/2021 Medication management [Z79.899] 03/15/2021 Cancer of the skin, basal cell [C44.91] 04/21/2021 Low serum vitamin B12 [E53.8] 04/22/2021 Hypomagnesemia [E83.42] 04/22/2021 Diabetic eye exam (HCC) [Z01.00, E11.9] 09/09/2021 Medicare annual wellness visit, subsequent [Z00*10/06/2021 Discoloration and thickening o (more content not included)...[facility]07-30-[facility] Telephone encounter Note* Telephone Encounter - Ramu Alanis MA - 04/16/2024 9:15 AM EDT Faxed Order Demo Last O/V To [facility]. Ramu Alanis MA [facility]07-30-[facility] Miscellaneous Notes* Telephone Encounter - Ramu Alanis MA - 04/16/2024 9:15 AM EDT Faxed Order Demo Last O/V To [facility]. Ramu Alanis MA documented in this encounterSam[facility]07-30-2024 History of Present illness Narrative* Ovidio Vincent MD - 04/16/2024 8:00 AM EDT Chief Complaint Patient presents with: Dizziness HPI Ronnie Yarbrough is a 73 year old male who presents here today for Dizziness (spinning) 3 days ago patient woke up to severe neck pain. Unable to move his neck. No fall or known injury. Has applied heat with no relief. Has pain with moving his neck left and right. Patient has some chronic upper extremities neuropathy from his cervical neck degeneration. This has not increased and no weakness in his upper extremities. 2. Patient also has been having constant dizziness for quite some time. Patient has seen [facility] and they decreased his Coreg to 12.5 mg twice daily instead of 25 mg. They had increased it to to 25 mg and the dizziness increased to the point he was unable to drive. Since the decrease back to the 12.5 mg tablet he is able to now drive again. Patient was on heart monitor for 2 week per heart group. Everything was fine but mentioned that he had possible sleep apnea. Patient indicated that he was instructed to take off the monitor at night time and plug it. So he was not wearing it atnight time. Patient has been getting this spinning sensation when going from laying to sitting for the about a year. Lasts a few min. No nausea or vomiting. Patient indicated that he has been doing PT for balance and that has been improving. No significant change in his hearing over the past year. No pressure in his ears. Denies headaches. Patient with hx of HTN, hyperlipidemia, COPD, neuropathy, DM2, GERD, recent DVT, paroxysmal A. Fib (seeing cardio) and those as below. Essential hypertension - ICD9: 401.9, ICD10: I10 - Controlled - Continue current medications - Recommend home blood pressure monitoring, to bring results to next visit - Encouraged sodium restriction, DASH or Mediterranean diet - Recommend regular aerobic exercise Type 2 diabetes mellitus with stage 3a chronic kidney disease, without long-term current use of insulin (HCC) - ICD9: 250.40, 585.3, ICD10: E11.22, N18.31 6 mo ago (10/10/23) 8 mo ago (08/04/23) 1 yr ago (03/30/23) 1 yr ago (10/12/22) 1 yr ago (04/18/22) 2 yr ago (10/07/21) 3 yr ago (04/08/21) Hemoglobin A1C 4.3 - 5.6 % 7.2 High 7.1 Abnormal R 7.6 High CM 6.7 High CM 6.3 High CM 6.7 High CM 5.7 High CM Patient see Ophthalmology [facility] last visit 09/2023 Paroxysmal atrial fibrillation (HCC) - ICD9: 427.31, ICD10: I48.0 - patient see [facility] visit 02/2024 Patient sees pulmonary last visit 11/2023 Past medical history, appointments, medications, allergies reviewed. 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 Day: +12; Engrafted Protocol(s): 3422 1C Preparative regimen: melphalan Mobilization regimen: neupogen and plerixafor Stem cell source: apheresis CD34 cell dose (x10e6/kg): 5.14 Date of transplant: 06/15/2018 Bilateral leg edema 09/30/2022 Cancer of the skin, 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 Cervical spondylosis without myelopathy COPD (chronic obstructive pulmonary disease) ([facility]) 03/15/2021 Diabetic eye exam ([facility]) 09/09/2021 Last done 09/09/[address] Juve Reza Dilated aortic root ([facility]) 06/04/2023 Seeing [facility] Discoloration and thickening of nails both feet 10/06/2021 ED (erectile dysfunction) of organic origin 07/04/2022 Enlarged LA (left atrium) 06/04/2023 Seeing [facility] Essential hypertension 06/13/2018 -On lisinopril 10mg daily ( home med) -Will d/c for now given hyperkalemia . 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 --ppx ACV and cipro Inflammatory polyarthropathy ([facility]) Leg DVT (deep venous thromboembolism), acute, left ([facility]) 01/02/2018 --acute DVT gastrocnemius found 12/13/2017 --continue apixaban till platelets <50K, last dose 06/21/2018 Living will on file at physician's office 09/30/2022 DPA: BREN () Low serum vitamin B12 04/22/2021 Lumbar spinal stenosis Medicare annual wellness visit, subsequent 10/06/2021 Medicare part B: Not able to find, Last done: 10/06/2021 Mixed hyperlipidemia 10/31/2006 --will hold atorvastatin d/t interactions with chemotherapy can resume at discharge Multiple myeloma ([facility]) 11/28/2017 Multiple myeloma in remission ([facility]) Obesity, Class I, BMI 30-34.9 10/01/2012 Osteoarthritis of both hands Pancytopenia due to chemotherapy ([facility]) 06/25/2018 --Transfuse PRBC and platelets per protocol --GCSF Peripheral autonomic neuropathy in disorders classified elsewhere 06/07/2005 Pulmonary hypertension, unspecified ([facility]) 10/23/2019 Spinal stenosis, lumbar region, without neurogenic claudication 11/13/2006 Tobacco abuse 12/27/2011 Quit 2013 Type 2 diabetes mellitus without complication, without long-term current use of insulin ([facility]) 04/12/2018 Venous insufficiency, peripheral 01/06/2014 Vitamin D deficiency 12/31/2014 Previous Surgical History PAST SURGICAL HISTORY Procedure Laterality Date ANES ARTHROSCOPIC TOTAL SHOULDER REPLACEMENT Right 01/28/2013 [facility] - complete right shoulder replaceement ARTHRD ANT INTERBODY MIN DSC LUMBAR 2009 ARTHROTOMY W/MENISCUS REPAIR KNEE 1981 RIGHT ARTHROTOMY W/MENISCUS REPAIR KNEE 1982 LEFT ARTHRP KNE CONDYLE&PLATU MEDIAL&LAT COMPARTMENTS Right 2008 Knee replacement, total BACK SURGERY HX COLONOSCOPY FLX DX W/COLLJ SPEC WHEN PFRMD 09/25/2012 normal colonoscopy - 10 year follow up EGD TRANSORAL BIOPSY SINGLE/MULTIPLE 09/25/2012 mild distal esophagitis HAND BILATERAL OP SURGERY 2021 trigger finger/ cyst removal JOINT REPLACEMENT HX Right shoulder [id number] REPLACE/BOTH COMPART Left 08/21/2023 HARRIS W/O FACETEC FORAMOT/DSC 09/19 VRT SGM CRV 2007 Laminectomy, cervical PAST SURGICAL HISTORY OF Right 08/23/2021 carpal tunnel release with wrist arthrotomy and synovectomy PAST SURGICAL HISTORY OF Right 08/23/2021 ulnar nerve decompression PAST SURGICAL HISTORY OF 12/28/2022 bilateral revision lainectomy L1-L2, T11-T12 REMV CATARACT EXTRACAP,INSERT LENS Bilateral 11/2023 SKIN BIOPSY HX TONSILLECTOMY HX Family History FAMILY HISTORY Problem Relation Age of Onset None Mother Cancer Father PANCREAS Diabetes Father Diabetes Sister None Brother Diabetes Paternal Grandmother COPD No Family History Asthma No Family History Patient Allergies ALLERGIES Allergen Reactions Gabapentin Other: See Comments Depression/suicidal ideation Current Medications Current Outpatient Medications on File Prior to Visit Medication Sig dulaglutide (TRULICITY) 3 mg/0.5 mL pen injector Inject 3 mg subcutaneously one time a week. Injectonce per week. Discard Pen After metFORMIN (GLUCOPHAGE) 1,000 mg tablet Take 1 tablet by mouth two times a day with meals. omeprazole (PRILOSEC) 40 mg capsule TAKE ONE CAPSULE BY MOUTH ONCE DAILY ON AN EMPTY STOMACH losartan (COZAAR) 25 mg tablet Take 1 tablet by mouth once daily. carvedilol (COREG) 25 mg tablet Take 1 tablet by mouth two times a day with meals. Per [facility] torsemide (DEMADEX) 20 mg tablet Take 1 tablet by mouth two times a day. . dapagliflozin propanediol (FARXIGA) 10 mg tablet Take 1 tablet by mouth once daily. Take one daily in the morning atorvastatin (LIPITOR) 40 mg tablet Take 1 tablet by mouth once daily. Tadalafil (CIALIS) 20 mg tablet Take 1 tablet by mouth once daily. As needed albuterol HFA (PROVENTIL HFA, VENTOLIN HFA) 90 mcg/actuation inhaler Inhale 2 Puffs as instructed every 6 hours as needed for wheezing/shortness of breath. (Patient not taking: Reported on 11/27/2023) ulhawslyuij-okkyljsvr-sumjjybq (TRELEGY ELLIPTA) 100-62.5-25 mcg inhalation powder inhale 1 puff bymouth and INTO THE LUNGS once daily aspirin, enteric coated (ASPIRIN, ENTERIC COATED) 81 mg EC tablet Take 1 tablet by mouth once daily. Cholecalciferol, Vitamin D3, (VITAMIN D-3) 50 mcg (2,000 unit) cap Take 1 capsule by mouth once daily. terbinafine HCl (LAMISIL) 250 mg tablet Take 1 tablet by mouth once daily. cyanocobalamin (VITAMIN B-12) 1,000 mcg tab Take 1 tablet by mouth once daily. Calcium-Cholecalciferol, D3, 600 mg-5 mcg (200 unit) cap Take 1 capsule by mouth once daily. No current facility-administered medications on file prior to visit. Social History Social History Tobacco Use Smoking status: Former Packs/day: 1.00 Years: 41.00 Additional pack years: 0.00 Total pack years: 41.00 Types: Pipe, Cigarettes Start date: 1971 Quit date: 12/09/2011 Years since quittin.3 Smokeless tobacco: Never Tobacco comments: 1/4 pack of cigs; pipe smoker. None of either since cessation. No ETS in childhood home. Smoked up to one ppd Vaping Use Vaping Use: Never used Substance Use Topics Alcohol use: Yes Alcohol/week: 1.0 standard drink of alcohol Types: 1 Cans of beer per week Comment: seldom Drug use: Never Review of Symptoms REVIEW OF SYSTEMS See HPI EXAM: BP 135/83 Resp 18 Wt 95.7 kg (211 lb) BMI 31.16 kg/m Last 5 Encounter Wt Readings: Date: Wt: 04/16/2024 95.7 kg (211 lb) 01/03/2024 97.5 kg (215 lb) 11/27/2023 100.9 kg (222 lb 6.4 oz) 11/01/2023 99.8 kg (220 lb) 10/10/2023 97.1 kg (214 lb) General Appearance: Well appearing, alert, in no acute distress, well-hydrated, well nourished.. Neck: has tenderness to palpation of the paraspinal muscles in the neck on both sides and out into the trap on both sides near the neck. He has decreased ROM with rotation and flexion/extension due to pain. Axial compression test ws negative. No pain to palpation over th cervical spine. . Extremities: . Musculoskeletal: Muscular strength intact and symmetrical in the upper extremities. , . Peripheral Pulses: Normal. Neuro: light touch sensation and DTR's in the upper extremities were intact and symmetrical. Tried doing a Hallpike test but with the next pain and tightness it was difficult to get a good exam. Health Maintenance List Depression Screening Never done Anxiety Screening Never done RSV Vaccine(1 - 1-dose 60+ series) Never done Covid-19 Vaccine( - 2022- season) due on 05/19/2023 Advance Directive Discussion due on 09/18/2023 Diabetic Foot Exam due on 09/30/2023 HbA1C due on 04/09/2024 Influenza Vaccine(1) due on 05/19/2024 Lung Cancer Screening due on 07/31/2024 Dilated Retinal Exam due on 09/22/2024 Urine Albumin:Creatinine Ratio due on 10/10/2024 LDL Cholesterol due on 10/10/2024 Colorectal Cancer Screening due on 10/17/2024 Serum Creatinine due on 01/01/2025 Annual PCP Team Chronic Disease Visit due on 01/02/2025 BP Controlled (<130/80) due on 01/02/2025 DTaP,Tdap,Td Vaccine(6 - Td or Tdap) due on 09/23/2029 Spirometry Completed Abdominal Aortic Aneurysm Screening Completed Shingrix Vaccine Completed Pneumococcal Vaccine: 65+ Completed HPV Vaccine Aged Out Alpha-1 Antitrypsin Deficiency Screening Discontinued Hepatitis C Screening Discontinued Data reviewed 04/16/24 0808 04/16/24 0810 04/16/24 0811 04/16/24 0812 Resp: 18 Weight: 95.7 kg (211 lb) Orthostatic BP: 140/84 135/83 142/88 137/78 BP Position: Sitting Supine Sitting Standing Orthostatic Pulse: 64 72 70 72 No symptoms with standing. A/P ASSESSMENT/PLAN: 1. Vertigo - ICD9: 780.4, ICD10: R42 (primary diagnosis) - suspect BPV Check - US CAROTID ARTERIES [facility] - check MRI of the brain to r/o any vestibular anomaly as source for persistent vertigo. - consult PT for vestibular Tx. - Tx with valim as below. 2. Neck pain - ICD9: 723.1, ICD10: M54.2 - consult to PHYSICAL THERAPY. 3. Muscle spasms of neck - ICD9: 728.85, ICD10: M62.838 - as per #2 - will place him on valium 4. Essential hypertension - ICD9: 401.9, ICD10: I10 - Controlled - Continue current medications - Recommend home blood pressure monitoring, to bring results to next visit - Encouraged sodium restriction, DASH or Mediterranean diet - Recommend regular aerobic exercise - orthos were negative Requested Prescriptions Signed Prescriptions Disp Refills dulaglutide (TRULICITY) 3 mg/0.5 mL pen injector 12 Each 1 Sig: Inject 3 mg subcutaneously one time a week. Inject once per week. Discard Pen After Magnesium Oxide 250 mg magnesium tab Sig: Take two in the AM and one in the PM. diazePAM (VALIUM) 2 mg tablet 30 tablet 0 Sig: Take 1 tablet by mouth every 12 hours as needed for up to 15 days. F/u in a month for medicare wellness. If vertigo not improving will consult Neuro. I spent a total of 40 minutes on the date of the service which included preparing to see the patient, [id number] patient care, completing clinical documentation, performing a medically appropriate examination, counseling and educating the patient/family/caregiver and ordering medications, tests, or procedures. Ovidio Vincent MD documented [facility]24 NoteHNO ID: [id number] Author: OVIDIO VINCENT MD Service: ? Author Type: Physician Type: Progress Notes Filed: 04/16/2024 09:32 Note Text: Chief Complaint Patient presents with: Dizziness HPI Ronnie Yarbrough is a 73 year old male who presents here today for Dizziness (spinning) 3 days ago patient woke up to severe neck pain. Unable to move his neck. No fall or known injury. Has applied heat with no relief. Has pain with moving his neck left and right. Patient has some chronic upper extremities neuropathy from his cervical neck degeneration. This has not increased and no weakness in his upper extremities. 2. Patient also has been having constant dizziness for quite some time. Patient has seen [facility] and they decreased his Coreg to 12.5 mg twice daily instead of 25 mg. They had increased it to to 25 mg and the dizziness increased to the point he was unable to drive. Since the decrease back to the 12.5 mg tablet he is able to now drive again. Patient was on heart monitor for 2 week per heart group. Everything was fine but mentioned that he had possible sleep apnea. Patient indicated that he was instructed to take off the monitor at night time and plug it. So he was not wearing it at night time. Patient has been getting this spinning sensation when going from laying to sitting for the about a year. Lasts a few min. No nausea or vomiting. Patient indicated that he has been doing PT for balance and that has been improving. No significant change in his hearing over the past year. No pressure in his ears. Denies headaches. Patient with hx of HTN, hyperlipidemia, COPD, neuropathy, DM2, GERD, recent DVT, paroxysmal A. Fib (seeing cardio) and those as below. Essential hypertension - ICD9: 401.9, ICD10: I10 - Controlled - Continue current medications - Recommend home blood pressure monitoring, to bring results to next visit - Encouraged sodium restriction, DASH or Mediterranean diet - Recommend regular aerobic exercise Type 2 diabetes mellitus with stage 3a chronic kidney disease, without long-term current use of insulin (HCC) - ICD9: 250.40, 585.3, ICD10: E11.22, N18.31 6 mo ago (10/10/23) 8 mo ago (08/04/23) 1 yr ago (03/30/23) 1 yr ago (10/12/22) 1 yr ago (04/18/22) 2 yr ago (10/07/21) 3 yr ago (04/08/21) Hemoglobin A1C 4.3 - 5.6 % 7.2 High 7.1 Abnormal R 7.6 High CM 6.7 High CM 6.3 High CM 6.7 High CM 5.7 High CM Patient see Ophthalmology [facility] last visit 09/2023 Paroxysmal atrial fibrillation (HCC) - ICD9: 427.31, ICD10: I48.0 - patient see [facility] last visit 02/2024 Patient sees pulmonary last visit 11/2023 Past medical history, appointments, medications, allergies reviewed. 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HCC) 06/13/2018 Day: +12; Engrafted Protocol(s): 3422 1C Preparative regimen: melphalan Mobilization regimen: neupogen and plerixafor Stem cell source: apheresis CD34 cell dose (x10e6/kg): 5.14 Date of transplant: 06/15/2018 Bilateral leg edema 09/30/2022 Cancer of the skin, 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 Cervical spondylosis without myelopathy COPD (chronic obstructive pulmonary disease) ([facility]) 03/15/2021 Diabetic eye exam ([facility]) 09/09/2021 Last done 09/09/[address] Juve Reza Dilated aortic root ([facility]) 06/04/2023 [facility] Discoloration and thickening of nails both feet 10/06/2021 ED (erectile dysfunction) of organic origin 07/04/2022 Enlarged LA (left atrium) 06/04/2023 Seeing [facility] Essential hypertension 06/13/2018 -On lisinopril 10mg daily ( home med) -Will d/c for now given hyperkalemia . 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 --ppx ACV and cipro Inflammatory polyarthropathy ([facility]) Leg DVT (deep venous thromboembolism), acute, left ([facility]) 01/02/2018 --acute DVT gastrocnemius found 12/13/2017 --continue apixaban till platelets <50K, last dose 06/21/2018 Living will on file at physician's office 09/30/2022 DPA: BREN () Low serum vitamin B12 04/22/2021 Lumbar spinal stenosis Medicare annual wellness visit, subsequent 10/06/2021 Medicare part B: Not able to find, Last done: 10/06/2021 Mixed hyperlipidemia 10/31/2006 --will hold atorvastatin d/t interactions with chemotherapy can resume at discharge Multiple myeloma ([facility]) 11/28/2017 Multiple myeloma in remission ([facility]) Obesity, Class I, BMI 30-34.9 10/01/2012 (more content not included)...[facility]07-29-2024 NoteHNO ID: [id number] Author: MARTA LUI RN Service: ? Author Type: Registered Nurse Type: Progress Notes Filed: 04/15/2024 09:23 Note Text: CDM Telephonic Outreach Provider Action/MAGDAI N/A Contacted for: Routine Telephonic Outreach Contact made with patient: No, left message. Marta Lui RN April 15, 2024 9:22 [facility]07-29-2024 History of Present illness Narrative* Marta Lui RN - 04/15/2024 9:06 AM EDT CDM Telephonic Outreach Provider Action/ANJU N/A Contacted for: Routine Telephonic Outreach Contact made with patient: No, left message. Marta Lui RN April 15, 2024 9:22 AM documented in this encounter[facility]-29-[facility]24 NotePatient Outreach ([facility]) RONNIE YARBROUGH I ([id number]) 1950 M Date Time Provider Department 04/15/24 MARTA LUI [facility] During your visit today, we recorded the following information about you: Marta Lui RN 04/15/2024 9:23 AM Signed CDM Telephonic Outreach Provider Action/ANJU N/A Contacted for: Routine Telephonic Outreach Contact made with patient: No, left message. Marta Lui RN April 15, 2024 9:22 AM Allergies As of Date: 04/15/2024 Noted Allergy Reaction GABAPENTIN 06/24/2018 14 - Other: See Comments Comments: Depression/suicidal ideation Date Reviewed: 01/03/2024 Reviewed by: Ovidio Vincent MD - Fully Assessed Reason for Visit: Community Monitoring Outreach [Other] Cmt: Telephonic Outreach CDM Home Monitoring Prescriptions as of 04/15/2024 - dulaglutide (TRULICITY) 3 mg/0.5 mL pen injector Inject 3 mg subcutaneously one time a week. Inject once per week. Discard Pen After - metFORMIN (GLUCOPHAGE) 1,000 mg tablet Take 1 tablet by mouth two times a day with meals. - omeprazole (PRILOSEC) 40 mg capsule TAKE ONE CAPSULE BY MOUTH ONCE DAILY ON AN EMPTY STOMACH - losartan (COZAAR) 25 mg tablet Take 1 tablet by mouth once daily. - carvedilol (COREG) 25 mg tablet Take 1 tablet by mouth two times a day with meals. Per [facility] - torsemide (DEMADEX) 20 mg tablet Take 1 tablet by mouth two times a day. . - dapagliflozin propanediol (FARXIGA) 10 mg tablet Take 1 tablet by mouth once daily. Take one daily in the morning - atorvastatin (LIPITOR) 40 mg tablet Take 1 tablet by mouth once daily. - Tadalafil (CIALIS) 20 mg tablet Take 1 tablet by mouth once daily. As needed - albuterol HFA (PROVENTIL HFA, VENTOLIN HFA) 90 mcg/actuation inhaler Inhale 2 Puffs as instructed every 6 hours as needed for wheezing/shortness of breath. - tmszudisjti-okrvzyvjh-yfmiyzrk (TRELEGY ELLIPTA) 100-62.5-25 mcg inhalation powder inhale 1 puff by mouth and INTO THE LUNGS once daily - aspirin, enteric coated (ASPIRIN, ENTERIC COATED) 81 mg EC tablet Take 1 tablet by mouth once daily. - Cholecalciferol, Vitamin D3, (VITAMIN D-3) 50 mcg (2,000 unit) cap Take 1 capsule by mouth once daily. - terbinafine HCl (LAMISIL) 250 mg tablet Take 1 tablet by mouth once daily. - cyanocobalamin (VITAMIN B-12) 1,000 mcg tab Take 1 tablet by mouth once daily. - Calcium-Cholecalciferol, D3, 600 mg-5 mcg (200 unit) cap Take 1 capsule by mouth once daily. Problem List As Of Date 04/15/2024 Noted Resolved Peripheral autonomic neuropathy in disorders cl*06/07/2005 Mixed hyperlipidemia [E78.2] 10/31/2006 Spinal stenosis, lumbar region, without neuroge*11/13/2006 GERD (gastroesophageal reflux disease) [K21.9] 12/27/2011 Tobacco abuse [Z72.0] 12/27/2011 10/01/2012 Special screening for malignant neoplasms, colo*09/06/2012 06/13/2018 Esophagitis, unspecified [K20.90] 09/25/2012 01/06/2014 Obesity, Class I, BMI 30-34.9 [E66.9] 10/01/2012 Venous insufficiency, peripheral [I87.2] 01/06/2014 11/25/2019 Acute bronchitis with chronic obstructive pulmo*12/30/2014 06/26/2017 Vitamin D deficiency [E55.9] 12/31/2014 Class 1 obesity due to excess calories with ser*06/26/2017 11/25/2019 Multiple myeloma (HCC) [C90.00] 11/28/2017 Adjustment insomnia [F51.02] 12/07/2017 05/14/2018 Multiple myeloma in remission (HCC) [C90.01] 12/07/2017 Leg DVT (deep venous thromboembolism), acute, l*01/02/2018 11/25/2019 Type 2 diabetes mellitus with stage 3a chronic *04/12/2018 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, T38.0X5A]04/19/2018 05/14/2018 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] 06/13/2018 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/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 Bilateral lower extremity edema [R60.0] 06/13/2018 07/17/2018 Essential hypertension [I10] 06/13/2018 JOSE ENRIQUE (acute kidney injury) (HCC) [N17.9] 06/16/2018 06/18/2018 Hyperkalemia [E87.5] 06/18/2018 2018 Chemotherapy induced nausea and vomiting [R11.2*06/18/2018 07/02/2018 Difficulty coping [R45.89] 06/20/2018 06/26/2018 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) [D61.810]06/25/2018 Fall [W19.XXXA] 07/17/2018 11/25/2019 Acute on chronic systolic CHF (congestive heart*10/04/2019 11/25/2019 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] 10/04/2019 Shortness of breath [R06.02] 10/22/2019 11/25/2019 Chest pressure [R07.89] 10/23/2019 11/25/2019 Pulmonary hypertension, unspecified (HCC) [I27.*10/23/2019 Wheezing [R06.2] 10/23/2019 11/25/2019 Lung nodules [R91.8] 10/23/2019 Ex-smoker [Z87.891] 03/15/2021 COPD (chronic obstructive pulmonary disease) (H*03/15/2021 Allergic rhinitis [J30.9] 03/15/2021 Medication management [Z79.899] 03/15/2021 Cancer of the skin, basal cell [C44.91] 04/21/2021 Low serum vitamin B12 [E53.8] 04/22/2021 Hypomagnesemia [E83.42] 04/22/2021 Diabetic eye exam (HCC) [Z01.00, E11.9] 09/09/2021 Medicare annual wellness visit (more content not included)...[facility]07-22-[facility]24 Telephone encounter Note* Telephone Encounter - Ramu Alanis MA - 04/08/2024 12:00 PM EDT Prescription Refill Information The patient has been identified by name and date of : Yes Caregiver verified no other encounters exist for this prescription request: Yes Caregiver confirmed with patient/requestor that no other refills are due, in the near future, with this provider at this time: Yes The last office visit in the department: 09/2023 Does the patient have a future office visit with this provider/department: Yes 03/2024 Last refill; 09/2023 Requested Prescriptions Pending Prescriptions Disp Refills dulaglutide (TRULICITY) 3 mg/0.5 mL pen injector 12 Each 1 Sig: Inject 3 mg subcutaneously one time a week. Inject once per week. Discard Pen After Ramu Alanis MA April 08, 2024 12:15 PM [facility]07-22-[facility] Miscellaneous Notes* Telephone Encounter - Ramu Alanis MA - 04/08/2024 12:00 PM EDT Prescription Refill Information The patient has been identified by name and date of : Yes Caregiver verified no other encounters exist for this prescription request: Yes Caregiver confirmed with patient/requestor that no other refills are due, in the near future, with this provider at this time: Yes The last office visit in the department: 09/2023 Does the patient have a future office visit with this provider/department: Yes 03/2024 Last refill; 09/2023 Requested Prescriptions Pending Prescriptions Disp Refills dulaglutide (TRULICITY) 3 mg/0.5 mL pen injector 12 Each 1 Sig: Inject 3 mg subcutaneously one time a week. Inject once per week. Discard Pen After Ramu Alanis MA April 08, 2024 12:15 PM documented in [facility] encounter[facility]07-[facility]24 Telephone encounter Note * Telephone Encounter - Ovidio Vincent MD - 03/25/2024 10:22 AM EDT The following approved medication requests have been transmitted electronically. Requested Prescriptions Signed Prescriptions Disp Refills metFORMIN (GLUCOPHAGE) 1,000 mg tablet 180 tablet 1 Sig: Take 1 tablet by mouth two times a day with meals. omeprazole (PRILOSEC) 40 mg capsule 90 capsule 1 Sig: TAKE ONE CAPSULE BY MOUTH ONCE DAILY ON AN EMPTY STOMACH Ovidio Vincent MD [facility]07-08-2024 Miscellaneous Notes* Telephone Encounter - Ovidio Vincent MD - 03/25/2024 10:22 AM EDT The following approved medication requests have been transmitted electronically. Requested Prescriptions Signed Prescriptions Disp Refills metFORMIN (GLUCOPHAGE) 1,000 mg tablet 180 tablet 1 Sig: Take 1 tablet by mouth two times a day with meals. omeprazole (PRILOSEC) 40 mg capsule 90 capsule 1 Sig: TAKE ONE CAPSULE BY MOUTH ONCE DAILY ON AN EMPTY STOMACH Ovidio Vincent MD * Telephone Encounter - Angelica Oquendo MA - 03/25/2024 8:54 AM EDT Prescription Refill Information The patient has been identified by name and date of : Yes Caregiver verified no other encounters exist for this prescription request: Yes Caregiver confirmed with patient/requestor that no other refills are due, in the near future, with this provider at this time: Yes The last office visit in the department: 01/03/24 Does the patient have a future office visit with this provider/department: Yes Requested Prescriptions Pending Prescriptions Disp Refills metFORMIN (GLUCOPHAGE) 1,000 mg tablet 180 tablet 1 Sig: Take 1 tablet by mouth two times a day with meals. omeprazole (PRILOSEC) 40 mg capsule 90 capsule 1 Sig: TAKE ONE CAPSULE BY MOUTH ONCE DAILY ON AN EMPTY STOMACH Angelica Oquendo MA March 25, 2024 8:57 AM [facility] Telephone encounter Note * Telephone Encounter - Angelica Oquendo MA - 03/25/2024 8:54 AM EDT Prescription Refill Information The patient has been identified by name and date of : Yes Caregiver verified no other encounters exist for this prescription request: Yes Caregiver confirmed with patient/requestor that no other refills are due, in the near future, with this provider at this time: Yes The last office visit in the department: 01/03/24 Does the patient have a future office visit with this provider/department: Yes Requested Prescriptions Pending Prescriptions Disp Refills metFORMIN (GLUCOPHAGE) 1,000 mg tablet 180 tablet 1 Sig: Take 1 tablet by mouth two times a day with meals. omeprazole (PRILOSEC) 40 mg capsule 90 capsule 1 Sig: TAKE ONE CAPSULE BY MOUTH ONCE DAILY ON AN EMPTY STOMACH Angelica Oquendo MA March 25, 2024 8:57 AM [facility]06-28-2024 NoteHNO ID: [id number] Author: MARTA LUI RN Service: ? Author Type: Registered Nurse Type: Progress Notes Filed: 03/15/2024 14:31 Note Text: [facility] Telephonic Outreach Provider Action/FYI N/A Contacted for: Routine Telephonic Outreach AND SDOH screening for food insecurity and transportation Contact made with patient: Yes Patient identified by name and date of . Discussed care with patient Are you experiencing any new or worsening symptoms you need to talk about today? No Disease Specific Do you check your blood pressure at home? Yes, Enter readings: 130/60-70 Do you have new or worsening shortness of breath with activity? No Do you have new or worsening cough? No Do you have new or worsening wheezing? No Do you need to use your rescue (Albuterol) inhaler or nebulizer more often than normal? No Based on stitching machine feeder or offbearer, the following disposition is advised: No symptoms or symptoms present, not severe. Routed to: No Action Needed MACO Education Provided this Outreach: No Upcoming appointments reviewed: Appointments for Next 60 Days Date Time Provider Location Dept Phone 04/16/2024 8:00 AM OVIDIO VINCENT [facility] [place] [phone] 04/26/2024 8:00 AM LAB [facility] [place] [phone] 05/03/2024 10:10 AM [facility] [phone] Marta Lui RN March 15, 2024 2:30 [facility]06-28-2024 History of Present illness Narrative* Marta Lui RN - 03/15/2024 2:23 PM EDT [facility] Telephonic Outreach Provider Action/FYTrino N/A Contacted for: Routine Telephonic Outreach & SDOH screening for food insecurity and transportation Contact made with patient: Yes Patient identified by name and date of . Discussed care with patient Are you experiencing any new or worsening symptoms you need to talk about today? No Disease Specific Do you check your blood pressure at home? Yes, Enter readings: 130/60-70 Do you have new or worsening shortness of breath with activity? No Do you have new or worsening cough? No Do you have new or worsening wheezing? No Do you need to use your rescue (Albuterol) inhaler or nebulizer more often than normal? No Based on stitching machine feeder or offbearer, the following disposition is advised: No symptoms or symptoms present, not severe. Routed to: No Action Needed MACO Education Provided this Outreach: No Upcoming appointments reviewed: Appointments for Next 60 Days Date Time Provider Location Dept Phone 04/16/2024 8:00 AM OVIDIO VINCENT [facility] [place] [phone] 04/26/2024 8:00 AM LAB [facility] [place] [phone] 05/03/2024 10:10 AM [facility] [place] [phone] Marta Lui RN March 15, 2024 2:30 PM documented in this encounterSam[facility]24 NotePatient Outreach ([facility]) RONNIE YARBROUGH I ([id number]) 1950 M Date Time Provider Department 03/15/24 MARTA LUI [facility] During your visit today, we recorded the following information about you: Marta Lui RN 03/15/2024 2:31 PM Signed [facility] Telephonic Outreach Provider Action/FYI N/A Contacted for: Routine Telephonic Outreach AND [facility] screening for food insecurity and transportation Contact made with patient: Yes Patient identified by name and date of . Discussed care with patient Are you experiencing any new or worsening symptoms you need to talk about today? No Disease Specific Do you check your blood pressure at home? Yes, Enter readings: 130/60-70 Do you have new or worsening shortness of breath with activity? No Do you have new or worsening cough? No Do you have new or worsening wheezing? No Do you need to use your rescue (Albuterol) inhaler or nebulizer more often than normal? No Based on stitching machine feeder or offbearer, the following disposition is advised: No symptoms or symptoms present, not severe. Routed to: No Action Needed MACO Education Provided this Outreach: No Upcoming appointments reviewed: Appointments for Next 60 Days Date Time Provider Location Dept Phone 04/16/2024 8:00 AM OVIDIO VINCENT [facility] [place] [phone] 04/26/2024 8:00 AM LAB [facility] [place] [phone] 05/03/2024 10:10 AM [facility] [place] [phone] Marta Lui RN March 15, 2024 2:30 PM Allergies As of Date: 03/15/2024 Noted Allergy Reaction GABAPENTIN 06/24/2018 14 - Other: See Comments Comments: Depression/suicidal ideation Date Reviewed: 01/03/2024 Reviewed by: Ovidio Vincent MD - Fully Assessed Reason for Visit: Community Monitoring Outreach [Other] Cmt: Telephonic Outreach CDM Home Monitoring Prescriptions as of 03/15/2024 - losartan (COZAAR) 25 mg tablet Take 1 tablet by mouth once daily. - carvedilol (COREG) 25 mg tablet Take 1 tablet by mouth two times a day with meals. Per [facility] - torsemide (DEMADEX) 20 mg tablet Take 1 tablet by mouth two times a day. . - omeprazole (PRILOSEC) 40 mg capsule TAKE ONE CAPSULE BY MOUTH ONCE DAILY ON AN EMPTY STOMACH - dapagliflozin propanediol (FARXIGA) 10 mg tablet Take 1 tablet by mouth once daily. Take one daily in the morning - atorvastatin (LIPITOR) 40 mg tablet Take 1 tablet by mouth once daily. - metFORMIN (GLUCOPHAGE) 1,000 mg tablet Take 1 tablet by mouth two times a day with meals. - Tadalafil (CIALIS) 20 mg tablet Take 1 tablet by mouth once daily. As needed - dulaglutide (TRULICITY) 3 mg/0.5 mL pen injector Inject 3 mg subcutaneously one time a week. Inject once per week. Discard Pen After - albuterol HFA (PROVENTIL HFA, VENTOLIN HFA) 90 mcg/actuation inhaler Inhale 2 Puffs as instructed every 6 hours as needed for wheezing/shortness of breath. - ptzueixgvkr-zvyzehuur-dkaigkjr (TRELEGY ELLIPTA) 100-62.5-25 mcg inhalation powder inhale 1 puff by mouth and INTO THE LUNGS once daily - aspirin, enteric coated (ASPIRIN, ENTERIC COATED) 81 mg EC tablet Take 1 tablet by mouth once daily. - Cholecalciferol, Vitamin D3, (VITAMIN D-3) 50 mcg (2,000 unit) cap Take 1 capsule by mouth once daily. - terbinafine HCl (LAMISIL) 250 mg tablet Take 1 tablet by mouth once daily. - cyanocobalamin (VITAMIN B-12) 1,000 mcg tab Take 1 tablet by mouth once daily. - Calcium-Cholecalciferol, D3, 600 mg-5 mcg (200 unit) cap Take 1 capsule by mouth once daily. Problem List As Of Date 03/15/2024 Noted Resolved Peripheral autonomic neuropathy in disorders cl*06/07/2005 Mixed hyperlipidemia [E78.2] 10/31/2006 Spinal stenosis, lumbar region, without neuroge*11/13/2006 GERD (gastroesophageal reflux disease) [K21.9] 12/27/2011 Tobacco abuse [Z72.0] 12/27/2011 10/01/2012 Special screening for malignant neoplasms, colo*09/06/2012 06/13/2018 Esophagitis, unspecified [K20.90] 09/25/2012 01/06/2014 Obesity, Class I, BMI 30-34.9 [E66.9] 10/01/2012 Venous insufficiency, peripheral [I87.2] 01/06/2014 11/25/2019 Acute bronchitis with chronic obstructive pulmo*12/30/2014 06/26/2017 Vitamin D deficiency [E55.9] 12/31/2014 Class 1 obesity due to excess calories with ser*06/26/2017 11/25/2019 Multiple myeloma (HCC) [C90.00] 11/28/2017 Adjustment insomnia [F51.02] 12/07/2017 05/14/2018 Multiple myeloma in remission (HCC) [C90.01] 12/07/2017 Leg DVT (deep venous thromboembolism), acute, l*01/02/2018 11/25/2019 Type 2 diabetes mellitus with stage 3a chronic *04/12/2018 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, T38.0X5A]04/19/2018 05/14/2018 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] 06/13/2018 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/13/2018 Bilateral lower extremity edema [R60.0] 06/13/2018 07/17/2018 Essential hypertension [I10] 06/13/2018 JOSE ENRIQUE (acute kidney injury) (HCC) [N17.9] 06/16/2018 1 (more content not included)...[facility]06-26-2024 Telephone encounter Note* Telephone Encounter - Chanelle Nolan RN - 03/13/2024 10:21 AM EDT The patient has been identified by name and date of : Yes Caregiver verified no other encounters exist for this prescription request: Yes Caregiver confirmed with patient/requestor that no other refills are due, in the near future, with this provider at this time: Yes The last office visit in the department: 01/03/2024 Does the patient have a future office visit with this provider/department: Yes 04/16/2024 Requested Prescriptions Pending Prescriptions Disp Refills losartan (COZAAR) 25 mg tablet 90 tablet 1 Sig: Take 1 tablet by mouth once daily. Chanelle Nolan RN March 13, 2024 10:21 AM [facility]06-26-2024 Miscellaneous Notes* Telephone Encounter - Chanelle Nolan RN - 03/13/2024 10:21 AM EDT The patient has been identified by name and date of : Yes Caregiver verified no other encounters exist for this prescription request: Yes Caregiver confirmed with patient/requestor that no other refills are due, in the near future, with this provider at this time: Yes The last office visit in the department: 01/03/2024 Does the patient have a future office visit with this provider/department: Yes 04/16/2024 Requested Prescriptions Pending Prescriptions Disp Refills losartan (COZAAR) 25 mg tablet 90 tablet 1 Sig: Take 1 tablet by mouth once daily. Chanelle Nolan RN March 13, 2024 10:21 AM documented in this encounterSam[facility]06-19-2024 Note* Addendum Note - Ovidio Vincent MD - 03/06/2024 2:28 PM EDTAddended by: OVIDIO VINCENT on: 03/06/2024 02:28 PM Modules accepted: Orders [facility]06-19-2024 Miscellaneous Notes* Addendum Note - Ovidio Vincent MD - 03/06/2024 2:28 PM EDTAddended by: OVIDIO VINCENT on: 03/06/2024 02:28 PM Modules accepted: Orders documented in this encounterSamaritan [facility] Center06-19-2024 NoteHNO ID: [id number] Author: SLIME HERNANDEZ LPN Service: ? Author Type: LICENSED NURSE Type: Progress Notes Filed: 03/06/2024 13:56 Note Text: Scan on 03/06/2024 9:47 AM by ProviderJustyn PA-C: [facility] - [facility] History of Present illness Narrative* Slime Hernandez LPN - 03/06/2024 1:56 PM EDT Scan on 03/06/2024 9:47 AM by Justyn Clark PA-C: Consultation - Cardiology documented in this encounterSam[facility]05-31-2024 History of Present illness Narrative* Nataliya Shaffer RN - 02/16/2024 12:57 PM EDT [facility] Telephonic Outreach Provider Action/FYI Contacted for: Routine Telephonic Outreach Contact made with patient: Yes Patient identified by name and date of . Discussed care with patient- bad connection, could not hear patient - mostly static- will try againanother time. documented in this encounterSam[facility]05-30-2024 History of Present illness Narrative* Marta Lui RN - 02/15/2024 2:36 PM EDT [facility] Telephonic Outreach Provider Mahi/ANJU N/A Contacted for: Routine Telephonic Outreach Contact made with patient: No, left message. Marta Lui RN February 15, 2024 3:02 PM documented in this encounterSamaritan [facility] Center05-20-2024 History of Present illness Narrative* Angela Chau LPN - 02/05/2024 2:13 PM EDT Scan on 02/05/2024 10:45 AM by Provider, Justyn, MATTYC: Consultation - PT/OT/Speech documented in this encounterSamaritan [facility] Center05-02-2024 History of Present illness Narrative* Marianela Dent RN - 01/18/2024 12:48 PM EDT [facility] Telephonic Outreach Provider Mahi/ANJU Heath and JASON's updated. Recently seen in office for Pre-Op for eye surgery. Contacted for: Routine Telephonic Outreach Contact made with patient: Yes Patient identified by name and date of . Discussed care with patient Are you experiencing any new or worsening symptoms you need to talk about today? No Disease Specific Do you check your blood pressure at home? Yes, Enter readings: 135/77 Do you have new or worsening shortness of breath with activity? No Do you feel like you are dehydrated for any reason, including not being able to eat or drink normally, or having less urine/much darker urine than normal for you? No Do you check your daily weight at home? No and Do you have new or worsening cough? No Do you have new or worsening wheezing? No Do you need to use your rescue (Albuterol) inhaler or nebulizer more often than normal? No Based on stitching machine feeder or offbearer, the following disposition is advised: No symptoms or symptoms present, not severe. Routed to: No Action Needed MACO Education Provided this Outreach: Leslie Dent RN January 18, 2024 1:02 PM documented in this encounterSam[facility]05-01-2024 History of Present illness Narrative* Marta Lui RN - 01/17/2024 1:15 PM EDT [facility] Telephonic Outreach Provider Action/FYI N/A Contacted for: Routine Telephonic Outreach Contact made with patient: No, left message. Marta Lui RN January 17, 2024 1:18 PM documented in this encounterSamaritan [facility] Center04-30-2024 Telephone encounter Note * Telephone Encounter - Sofi Christian RN - 01/16/2024 12:00 PM EDT Chanelle calling from [facility] and requests patient's recent pre-op visit note from 01/03/24 be faxed to them at FAX: [phone]. Pt has upcoming procedure this . Faxed as requested. Sofi Christian RN [facility]04-30-2024 Miscellaneous Notes* Telephone Encounter - Sofi Christian RN - 01/16/2024 12:00 PM EDT Chanelle calling from [facility] and requests patient's recent pre-op visit note from 01/03/24 be faxed to them at FAX: [phone]. Pt has upcoming procedure this . Faxed as requested. Sofi Christian RN documented in this encounterSamaritan North Health Center04-17-2024 History of Present illness Narrative* Ovidio Vincent MD - 01/03/2024 10:00 AM EDT Chief Complaint Patient presents with: Pre-Op Exam HPI Ronnie Yarbrough is a 73 year old male who presents here today for Pre op. Patient is here today for a Pre op appointment regarding his upcoming procedure on 01/11/[address] [facility] [address] Camron Lion for a membranectomy of left eye. Patient with hx of HTN, hyperlipidemia, COPD, neuropathy, DM2, GERD, recent DVT, paroxysmal A. Fib (seeing cardio) and those as below. Patient sees Ophthalmology last visit 09/2023 Patient sees Cardiology for A-fib last visit 07/2023 Patient has been doing ok. Had bilateral cataract surgeries back in November without issues. Can walk a flight of stairs and push a piece of furniture without shortness of breath or chest pressure/pain. Past medical history, appointments, medications, allergies reviewed. 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 Day: +12; Engrafted Protocol(s): 3422 1C Preparative regimen: melphalan Mobilization regimen: neupogen and plerixafor Stem cell source: apheresis CD34 cell dose (x10e6/kg): 5.14 Date of transplant: 06/15/2018 Bilateral leg edema 09/30/2022 Cancer of the skin, 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 Cervical spondylosis without myelopathy COPD (chronic obstructive pulmonary disease) ([facility]) 03/15/2021 Diabetic eye exam ([facility]) 09/09/2021 Last done 09/09/[address] Juve Reza Dilated aortic root ([facility]) 06/04/2023 Seeing [facility] Discoloration and thickening of nails both feet 10/06/2021 ED (erectile dysfunction) of organic origin 07/04/2022 Enlarged LA (left atrium) 06/04/2023 Seeing [facility] Essential hypertension 06/13/2018 -On lisinopril 10mg daily ( home med) -Will d/c for now given hyperkalemia . 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 --ppx ACV and cipro Inflammatory polyarthropathy ([facility]) Leg DVT (deep venous thromboembolism), acute, left ([facility]) 01/02/2018 --acute DVT gastrocnemius found 12/13/2017 --continue apixaban till platelets <50K, last dose 06/21/2018 Living will on file at physician's office 09/30/2022 DPA: BREN () Low serum vitamin B12 04/22/2021 Lumbar spinal stenosis Medicare annual wellness visit, subsequent 10/06/2021 Medicare part B: Not able to find, Last done: 10/06/2021 Mixed hyperlipidemia 10/31/2006 --will hold atorvastatin d/t interactions with chemotherapy can resume at discharge Multiple myeloma ([facility]) 11/28/2017 Multiple myeloma in remission ([facility]) Obesity, Class I, BMI 30-34.9 10/01/2012 Osteoarthritis of both hands Pancytopenia due to chemotherapy ([facility]) 06/25/2018 --Transfuse PRBC and platelets per protocol --GCSF Peripheral autonomic neuropathy in disorders classified elsewhere 06/07/2005 Pulmonary hypertension, unspecified ([facility]) 10/23/2019 Spinal stenosis, lumbar region, without neurogenic claudication 11/13/2006 Tobacco abuse 12/27/2011 Quit 2013 Type 2 diabetes mellitus without complication, without long-term current use of insulin ([facility]) 04/12/2018 Venous insufficiency, peripheral 01/06/2014 Vitamin D deficiency 12/31/2014 Previous Surgical History PAST SURGICAL HISTORY Procedure Laterality Date ANES ARTHROSCOPIC TOTAL SHOULDER REPLACEMENT Right 01/28/2013 [facility] - complete right shoulder replaceement ARTHRD ANT INTERBODY MIN DSC LUMBAR 2009 ARTHROTOMY W/MENISCUS REPAIR KNEE 1980 RIGHT ARTHROTOMY W/MENISCUS REPAIR KNEE 1982 LEFT ARTHRP KNE CONDYLE&PLATU MEDIAL&LAT COMPARTMENTS Right 2008 Knee replacement, total BACK SURGERY HX COLONOSCOPY FLX DX W/COLLJ SPEC WHEN PFRMD 09/25/2012 normal colonoscopy - 10 year follow up EGD TRANSORAL BIOPSY SINGLE/MULTIPLE 09/25/2012 mild distal esophagitis HAND BILATERAL OP SURGERY 2021 trigger finger/ cyst removal JOINT REPLACEMENT HX Right shoulder CVEX-ISWR-ALIRUJDIATKH-TOTAL REPLACE/BOTH COMPART Left 08/21/2023 HARRIS W/O FACETEC FORAMOT/DSC 09/19 VRT SGM CRV 2007 Laminectomy, cervical PAST SURGICAL HISTORY OF Right 08/23/2021 carpal tunnel release with wrist arthrotomy and synovectomy PAST SURGICAL HISTORY OF Right 08/23/2021 ulnar nerve decompression PAST SURGICAL HISTORY OF 12/28/2022 bilateral revision lainectomy L1-L2, T11-T12 SKIN BIOPSY HX TONSILLECTOMY HX Family History FAMILY HISTORY Problem Relation Age of Onset None Mother Cancer Father PANCREAS Diabetes Father Diabetes Sister None Brother Diabetes Paternal Grandmother COPD No Family History Asthma No Family History Patient Allergies ALLERGIES Allergen Reactions Gabapentin Other: See Comments Depression/suicidal ideation Current Medications Current Outpatient Medications on File Prior to Visit Medication Sig Magnesium 250 mg tab Take 500mg in mornings and 250mg in evenings. torsemide (DEMADEX) 20 mg tablet Take 1 tablet by mouth two times a day. . omeprazole (PRILOSEC) 40 mg capsule TAKE ONE CAPSULE BY MOUTH ONCE DAILY ON AN EMPTY STOMACH dapagliflozin propanediol (FARXIGA) 10 mg tablet Take 1 tablet by mouth once daily. Take one daily in the morning losartan (COZAAR) 25 mg tablet Take 1 tablet by mouth once daily. atorvastatin (LIPITOR) 40 mg tablet Take 1 tablet by mouth once daily. metFORMIN (GLUCOPHAGE) 1,000 mg tablet Take 1 tablet by mouth two times a day with meals. Tadalafil (CIALIS) 20 mg tablet Take 1 tablet by mouth once daily. As needed dulaglutide (TRULICITY) 3 mg/0.5 mL pen injector Inject 3 mg subcutaneously one time a week. Injectonce per week. Discard Pen After carvedilol (COREG) 12.5 mg tablet Take 1 tablet by mouth two times a day. Per [facility] albuterol HFA (PROVENTIL HFA, VENTOLIN HFA) 90 mcg/actuation inhaler Inhale 2 Puffs as instructed every 6 hours as needed for wheezing/shortness of breath. (Patient not taking: Reported on 11/27/2023) upsacppbgrv-zrenjyxnu-psmbpeov (TRELEGY ELLIPTA) 100-62.5-25 mcg inhalation powder inhale 1 puff bymouth and INTO THE LUNGS once daily aspirin, enteric coated (ASPIRIN, ENTERIC COATED) 81 mg EC tablet Take 1 tablet by mouth once daily. Cholecalciferol, Vitamin D3, (VITAMIN D-3) 50 mcg (2,000 unit) cap Take 1 capsule by mouth once daily. terbinafine HCl (LAMISIL) 250 mg tablet Take 1 tablet by mouth once daily. cyanocobalamin (VITAMIN B-12) 1,000 mcg tab Take 1 tablet by mouth once daily. Calcium-Cholecalciferol, D3, 600 mg-5 mcg (200 unit) cap Take 1 capsule by mouth once daily. No current facility-administered medications on file prior to visit. Social History Social History Tobacco Use Smoking status: Former Packs/day: 1.00 Years: 41.00 Additional pack years: 0.00 Total pack years: 41.00 Types: Pipe, Cigarettes Start date: 1971 Quit date: 12/09/2011 Years since quittin.0 Smokeless tobacco: Never Tobacco comments: 1/4 pack of cigs; pipe smoker. None of either since cessation. No ETS in childhood home. Smoked up to one ppd Vaping Use Vaping Use: Never used Substance Use Topics Alcohol use: Yes Alcohol/week: 1.0 standard drink of alcohol Types: 1 Cans of beer per week Comment: seldom Drug use: Never Review of Symptoms REVIEW OF SYSTEMS GENERAL: No weight loss, malaise or fevers HEENT: Negative for frequent or significant headaches, No changes in hearing or vision, no nose bleeds or other nasal problems NECK: Negative for lumps, goiter, pain and significant neck swelling RESPIRATORY: Negative for cough, hemoptysis, wheezing, COPD, dyspnea or shortness of breath CARDIOVASCULAR: Negative for chest pain, increase leg swelling, hypertension, CHF or palpitations GI: No nausea, vomiting, or diarrhea and no abdominal pains : No history of dysuria, frequency or blood SKIN: Negative for lesions, rash, and itching HEMATOLOGY/LYMPHOLOGY: Negative for prolonged bleeding, bruising easily or swollen nodes ENDOCRINE: Negative for cold or heat intolerance, symptoms of low BS's. NEURO: No history of headaches, syncope, paralysis, seizures or tremors EXAM: BP 130/94 (BP Site: Left Arm, BP Position: Sitting, BP Cuff Size: Regular Adult) Pulse 76 Resp 16 Wt 97.5 kg (215 lb) BMI 31.75 kg/m BP 122/60 Pulse 76 Resp 16 Wt 97.5 kg (215 lb) BMI 31.75 kg/m Last 5 Encounter Wt Readings: Date: Wt: 01/03/2024 97.5 kg (215 lb) 11/27/2023 100.9 kg (222 lb 6.4 oz) 11/01/2023 99.8 kg (220 lb) 10/10/2023 97.1 kg (214 lb) 08/01/2023 100.2 kg (221 lb) General Appearance: Well appearing, alert, in no acute distress, well-hydrated, well nourished. andObese. Skin: Skin color, texture, turgor normal, no suspicious rashes or lesions. Head: Normocephalic, no masses, lesions, tenderness or abnormalities. Eyes: Anicteric sclera. Pupils are equally round and reactive to light. Extraocular movements are intact. . Ears: External ears, TM's normal, canals clear. Nose/Sinuses: Nares normal, septum midline, mucosa normal, no drainage or sinus tenderness. Oropharynx: Lips, mucosa, and tongue normal, teeth and gums normal, oropharynx normal. Neck: Supple, no adenopathy; thyroid symmetric, normal size, no bruits. Lungs: Lungs clear to auscultation. No wheezing, rhonchi, rales.. Heart: RRR without murmur, gallop, or rubs. No ectopy. Abdomen: Normal abdominal exam, Abdomen soft, non-tender. Bowel sounds normal. No masses, organomegaly. Extremities: No deformities. Has his stable chronic edema, Musculoskeletal: Muscular strength intact, No joint swelling, deformity, or tenderness. Peripheral Pulses: Normal. Neurologic: Gait aided by cane. Reflexes normal and symmetric. Sensation to light touch and crainalnerves 2-12 intact.. Health Maintenance List RSV Vaccine(1 - 1-dose 60+ series) Never done Covid-19 Vaccine(2022- season) due on 05/19/2023 Advance Directive Discussion due on 09/18/2023 Behavioral Health Screening Never done Diabetic Foot Exam due on 09/30/2023 HbA1C due on 04/09/2024 Lung Cancer Screening due on 07/31/2024 Dilated Retinal Exam due on 09/22/2024 Urine Albumin:Creatinine Ratio due on 10/10/2024 LDL Cholesterol due on 10/10/2024 Annual PCP Team Chronic Disease Visit due on 10/10/2024 Colorectal Cancer Screening due on 10/17/2024 BP Controlled (<130/80) due on 11/26/2024 Serum Creatinine due on 01/01/2025 DTaP,Tdap,Td Vaccine(6 - Td or Tdap) due on 09/23/2029 Spirometry Completed Abdominal Aortic Aneurysm Screening Completed Influenza Vaccine Completed Shingrix Vaccine Completed Pneumococcal Vaccine: 65+ Completed HPV Vaccine Aged Out Alpha-1 Antitrypsin Deficiency Screening Discontinued Hepatitis C Screening Discontinued Data reviewed Inn office EKG: NSR with premature ventricular beets. No presence of A. Fib as in previous EKG 03/2023. No acute ST or T wave changes. Latest Ref Rng 10/27/2023 01/02/2024 WBC 3.70 - 11.00 k/uL 6.55 7.20 RBC 4.20 - 6.00 m/uL 4.93 5.37 Hemoglobin 13.0 - 17.0 g/dL 12.9 (L) 13.6 Hematocrit 39.0 - 51.0 % 40.8 44.2 MCV 80.0 - 100.0 fL 82.8 82.3 MCH 26.0 - 34.0 pg 26.2 25.3 (L) MCHC 30.5 - 36.0 g/dL 31.6 30.8 RDW-CV 11.5 - 15.0 % 16.2 (H) 16.3 (H) Platelet Count 150 - 400 k/uL 209 246 MPV 9.0 - 12.7 fL 10.0 10.0 Neut% % 80.4 78.2 Abs Neut (ANC) 1.45 - 7.50 k/uL 5.27 5.63 Lymph% % 12.5 13.3 Abs Lymph 1.00 - 4.00 k/uL 0.82 (L) 0.96 (L) Ramsey% % 6.1 6.9 Abs Ramsey <0.87 k/uL 0.40 0.50 Eosin% % 0.2 0.6 Abs Eosin <0.46 k/uL <0.03 0.04 Baso% % 0.2 0.3 Abs Baso <0.11 k/uL <0.03 <0.03 Immature Gran % % 0.6 0.7 IMMATURE GRANS (ABS) <0.10 k/uL 0.04 0.05 NRBC /100 WBC 0.0 0.0 Absolute nRBC <0.01 k/uL <0.01 <0.01 DTYPE Auto Auto Protein, Total 6.3 - 8.0 g/dL 6.2 (L) Albumin 3.9 - 4.9 g/dL 3.9 Calcium 8.5 - 10.2 mg/dL 9.6 9.5 Bilirubin, Total 0.2 - 1.3 mg/dL 0.4 Alkaline Phosphatase 38 - 113 U/L 84 AST 14 - 40 U/L 7 (L) ALT 10 - 54 U/L 8 (L) Glucose 74 - 99 mg/dL 169 (H) 168 (H) BUN 9 - 24 mg/dL 28 (H) 27 (H) Creatinine 0.73 - 1.22 mg/dL 0.97 1.10 Sodium 136 - 144 mmol/L 136 139 Potassium 3.7 - 5.1 mmol/L 4.4 4.4 Chloride 97 - 105 mmol/L 99 99 CO2 22 - 30 mmol/L 28 23 Anion Gap 9 - 18 mmol/L 9 17 eGFR >=60 mL/min/1.73m 83 71 A/P ASSESSMENT/PLAN: 1. Pre-op examination - ICD9: V72.84, ICD10: Z01.818 (primary diagnosis) - based on the ACC/AHA Classification of Surgical Procedures this is a low risk surgery. Based on the Heladio's Simple Cardiac Risk Index patient has a less then 0.4% risk of a cardiac event. He has moderate exercise capacity. There is no juanjo for further cardiac testing and is clear medically for surgery. - if you require respiratory clearance this will need to be obtained from his automation tester. Dr. Hayde Ward with [facility]. 2. Epiretinal membrane (ERM) of left eye - ICD9: 362.56, ICD10: H35.372 - plan is for surgery on 01/11/2024 3. Essential hypertension - ICD9: 401.9, ICD10: I10 - Controlled - Continue current medications - Recommend home blood pressure monitoring, to bring results to next visit - Encouraged sodium restriction, DASH or Mediterranean diet - Recommend regular aerobic exercise 4. Type 2 diabetes mellitus with stage 3a chronic kidney disease, without long- term current use of insulin (HCC) - ICD9: 250.40, 585.3, ICD10: E11.22, N18.31 - patient advised to hold the Trulicty a week prior to surgery and restart it afterwards. 5. Paroxysmal atrial fibrillation (HCC) - ICD9: 427.31, ICD10: I48.0 - in NSR F/u next routine. Ovidio Vincent MD [facility]* Diagnosis Pre-op evaluation- Primary Preoperative examination, unspecified Type 2 diabetes mellitus with stage 3a chronic kidney disease, without long-term current use of insulin (HCC) Essential hypertension Unspecified essential hypertension documented in [facility] Miscellaneous Notes* Telephone Encounter - Chanelle Nolan RN - 12/26/2023 4:42 PM EDT Pt called and is notified of providers message and instructions. Pt voices understanding. Chanelle Nolan RN * Telephone Encounter - Ovidio Vincent MD - 12/26/2023 4:36 PM EDT Let patient know labs placed to do a few days prior to Pre-op appt on 01/03/2024 * Telephone Encounter - Chanelle Nolan RN - 12/26/2023 4:21 PM EDT Chanelle with [facility] called in and reports Pt is going to have surgery with them on 01/11/24, to try to straight wrinkle on his retina. She is going to be faxing over the pre-op clearance form. Scheduled Pt with Dr Vincent on 01/03/24 at 1000 am. I asked Chanelle with [facility] if they needed any labs ordered and she said no they just need the providers signature. I let the Pt know that providers office would call back to let him know if he needed to come in to getlabs or anything done. [facility] History of Present illness Narrative* Marta Lui RN - 12/21/2023 10:10 AM EDT CDM Telephonic Outreach Provider Action/FYI N/A Contacted for: Routine Telephonic Outreach & SDOH screening for food insecurity and transportation-no needs identified Contact made with patient: Yes Patient identified by name and date of . Discussed care with patient Are you experiencing any new or worsening symptoms you need to talk about today? No Disease Specific Do you have new or worsening shortness of breath with activity? No Do you have new or worsening cough? No Do you have new or worsening wheezing? No Do you need to use your rescue (Albuterol) inhaler or nebulizer more often than normal? No Based on stitching machine feeder or offbearer, the following disposition is advised: No symptoms or symptoms present, not severe. Routed to: No Action Needed MACO Education Provided this Outreach: No Marta Lui RN December 21, 2023 10:16 AM [facility] Instructions* Patient Instructions* Chirstine Gaming APRN.KELLEY - 11/27/2023 8:39 AM EDT You would be due for CT Lung Screening in 07/2024. If you would like to proceed with screening CT at that time please reach out to me. PH. [phone]. CT Lung Screen Results The CT scan that you will have done will show if you have any nodules (small spots) in your lungs that are suspicious for cancer. Around 90% of the patients who have this scan done are found to have at least one nodule. Most nodules are benign (not cancer) and of no harm to you at all. A specialistwill make a scientific evaluation about whether or not a nodule is worrisome based on its size and shape. The radiologist who will read your scan will put it into one of four categories: LUNG-RADS Category Description Overall Probability of Malignancy Recommended Follow-Up 1 Negative No nodules and definitely benign (non-cancerous nodules) Essentially 0. 1 Year - Follow-up Low dose CT 2 Benign Appearance or Behavior Nodules with a very low likelihood of becoming cancer due to size or lack of growth Less than 1% 1 Year - Follow-up Low dose CT 3 Probably Benign Probably benign finding, short term follow-up recommended 1 to 2% 6 Months - Follow-up Low dose CT 4 Suspicious Findings for which additional diagnostic testing and/or biopsy is recommended Will be calculated based on nodule characteristics. Dependent on what is seen on the exam. (3 month follow-up CT, PET-CT, or biopsy) At times, we may see something outside of the lungs on the scan that could be a health concern. Below are some of the most common findings: S Clinically Significant or Potentially Clinically Significant Findings (non lung cancer) Referral or additional imaging/labs depending on result. Approximately 10% of people receive this result. Coronary Artery Calcifications (Moderate or Severe) - Referral to cardiology for further work-up and recommendations. Thyroid Nodule - TSH level and Thyroid Ultrasound dependent on size, referral to endocrinology. Adrenal Nodule - blood work and referral to endocrinology. Others Lung Cancer Screening hotline: [phone] Lung Cancer Screening [phone] Billing Questions: or [email or web address] Specialist Providers: (Reny Hendricks CNP; Zena Holcomb PA-C; Jesica Griffin CNP; Mary Monroe CNP, Maria Isabel Sharma CNP; Lizzeth Wiseman CNP; Yani Gupta PA-C; Christine Gaming CNP; Alicia Mejia CNP; Jia Paniagua PA-C; America Olea CNP; Hermila Morejon CNP; Chanelle Gaston CNP): [phone] documented in [facility] History of Present illness Narrative* Christine Gaming APRN.DOUGHNUT ICER MACHINE - 11/27/2023 8:31 AM EDT Images from the original note were not included. LUNG SCREENING VISIT PRIMARY CARE PHYSICIAN: Ovidio Vincent MD PULMONARY PROVIDER: Loretta Leon PA-C Results will be communicated via letter or electronic record if applicable. Visit Delivery: In Person Patient Visit Type: New to Screening Current or Ex-smoker? ex Exam Type: baseline LDCT Number of Pack Years: 41 Current smoker (=0) or Number of Years since Quit: 10 REQUESTER: The referring provider advised the patient to have screening. HISTORY OF PRESENT ILLNESS: Ronnie Yarbrough is a 73 year old Former smoker who presents for lung screening. Pt has history of multiple myeloma and had multiple CT Chest. Most recent CT Chest 07/2023 ordered by automation tester for evaluation of lung nodules. Lung nodules stable since 2019. No longer having surveillance CT for malignancy. Respiratory symptoms include: SOB: No Chest tightness: No Coughing: Yes: Without mucus Hemoptysis: No Wheezing: No Fever/Chills: No Recent Respiratory Infection: Yes, 7-10 days ago Unintentional weight loss: No Last 6 Encounter Wt Readings: Date: Wt: 11/27/2023 100.9 kg (222 lb 6.4 oz) 11/01/2023 99.8 kg (220 lb) 10/10/2023 97.1 kg (214 lb) 08/01/2023 100.2 kg (221 lb) 07/12/2023 105.2 kg (232 lb) 06/12/2023 100.4 kg (221 lb 6.4 oz) ECOG PERFORMANCE STATUS: 0- Fully active, able to carry on all pre-disease performance w/o restriction. 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 Day: +12; Engrafted Protocol(s): 3422 1C Preparative regimen: melphalan Mobilization regimen: neupogen and plerixafor Stem cell source: apheresis CD34 cell dose (x10e6/kg): 5.14 Date of transplant: 06/15/2018 Bilateral leg edema 09/30/2022 Cancer of the skin, 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 Cervical spondylosis without myelopathy COPD (chronic obstructive pulmonary disease) ([facility]) 03/15/2021 Diabetic eye exam ([facility]) 09/09/2021 Last done 09/09/[address] Juve Reza Dilated aortic root ([facility]) 06/04/2023 Seeing [facility] Discoloration and thickening of nails both feet 10/06/2021 ED (erectile dysfunction) of organic origin 07/04/2022 Enlarged LA (left atrium) 06/04/2023 Seeing [facility] Essential hypertension 06/13/2018 -On lisinopril 10mg daily ( home med) -Will d/c for now given hyperkalemia . 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 --ppx ACV and cipro Inflammatory polyarthropathy ([facility]) Leg DVT (deep venous thromboembolism), acute, left ([facility]) 01/02/2018 --acute DVT gastrocnemius found 12/13/2017 --continue apixaban till platelets <50K, last dose 06/21/2018 Living will on file at physician's office 09/30/2022 DPA: BREN () Low serum vitamin B12 04/22/2021 Lumbar spinal stenosis Medicare annual wellness visit, subsequent 10/06/2021 Medicare part B: Not able to find, Last done: 10/06/2021 Mixed hyperlipidemia 10/31/2006 --will hold atorvastatin d/t interactions with chemotherapy can resume at discharge Multiple myeloma ([facility]) 11/28/2017 Multiple myeloma in remission ([facility]) Obesity, Class I, BMI 30-34.9 10/01/2012 Osteoarthritis of both hands Pancytopenia due to chemotherapy ([facility]) 06/25/2018 --Transfuse PRBC and platelets per protocol --GCSF Peripheral autonomic neuropathy in disorders classified elsewhere 06/07/2005 Pulmonary hypertension, unspecified ([facility]) 10/23/2019 Spinal stenosis, lumbar region, without neurogenic claudication 11/13/2006 Tobacco abuse 12/27/2011 Quit 2013 Type 2 diabetes mellitus without complication, without long-term current use of insulin ([facility]) 04/12/2018 Venous insufficiency, peripheral 01/06/2014 Vitamin D deficiency 12/31/2014 PAST SURGICAL HISTORY Procedure Laterality Date ANES ARTHROSCOPIC TOTAL SHOULDER REPLACEMENT Right 01/28/2013 [facility] - complete right shoulder replaceement ARTHRD ANT INTERBODY MIN DSC LUMBAR 2009 ARTHROTOMY W/MENISCUS REPAIR KNEE 1981 RIGHT ARTHROTOMY W/MENISCUS REPAIR KNEE 1982 LEFT ARTHRP KNE CONDYLE&PLATU MEDIAL&LAT COMPARTMENTS Right 2007 Knee replacement, total BACK SURGERY HX COLONOSCOPY FLX DX W/COLLJ SPEC WHEN PFRMD 09/25/2012 normal colonoscopy - 10 year follow up EGD TRANSORAL BIOPSY SINGLE/MULTIPLE 09/25/2012 mild distal esophagitis HAND BILATERAL OP SURGERY 2021 trigger finger/ cyst removal JOINT REPLACEMENT HX Right shoulder [id number] REPLACE/BOTH COMPART Left 08/21/2023 HARRIS W/O FACETEC FORAMOT/DSC 09/19 VRT SGM CRV 2007 Laminectomy, cervical PAST SURGICAL HISTORY OF Right 08/23/2021 carpal tunnel release with wrist arthrotomy and synovectomy PAST SURGICAL HISTORY OF Right 08/23/2021 ulnar nerve decompression PAST SURGICAL HISTORY OF 12/28/2022 bilateral revision lainectomy L1-L2, T11-T12 SKIN BIOPSY HX TONSILLECTOMY HX FAMILY HISTORY Problem Relation Age of Onset None Mother Cancer Father PANCREAS Diabetes Father Diabetes Sister None Brother Diabetes Paternal Grandmother COPD No Family History Asthma No Family History Magnesium 250 mg tab Take 500mg in mornings and 250mg in evenings. torsemide (DEMADEX) 20 mg tablet Take 1 tablet by mouth two times a day. . omeprazole (PRILOSEC) 40 mg capsule TAKE ONE CAPSULE BY MOUTH ONCE DAILY ON AN EMPTY STOMACH dapagliflozin propanediol (FARXIGA) 10 mg tablet Take 1 tablet by mouth once daily. Take one daily in the morning losartan (COZAAR) 25 mg tablet Take 1 tablet by mouth once daily. atorvastatin (LIPITOR) 40 mg tablet Take 1 tablet by mouth once daily. metFORMIN (GLUCOPHAGE) 1,000 mg tablet Take 1 tablet by mouth two times a day with meals. Tadalafil (CIALIS) 20 mg tablet Take 1 tablet by mouth once daily. As needed dulaglutide (TRULICITY) 3 mg/0.5 mL pen injector Inject 3 mg subcutaneously one time a week. Injectonce per week. Discard Pen After carvedilol (COREG) 12.5 mg tablet Take 1 tablet by mouth two times a day. Per [facility] ibrdmpawcaz-nzgtzcvtg-ztqerihh (TRELEGY ELLIPTA) 100-62.5-25 mcg inhalation powder inhale 1 puff bymouth and INTO THE LUNGS once daily aspirin, enteric coated (ASPIRIN, ENTERIC COATED) 81 mg EC tablet Take 1 tablet by mouth once daily. Cholecalciferol, Vitamin D3, (VITAMIN D-3) 50 mcg (2,000 unit) cap Take 1 capsule by mouth once daily. terbinafine HCl (LAMISIL) 250 mg tablet Take 1 tablet by mouth once daily. cyanocobalamin (VITAMIN B-12) 1,000 mcg tab Take 1 tablet by mouth once daily. Calcium-Cholecalciferol, D3, 600 mg-5 mcg (200 unit) cap Take 1 capsule by mouth once daily. albuterol HFA (PROVENTIL HFA, VENTOLIN HFA) 90 mcg/actuation inhaler Inhale 2 Puffs as instructed every 6 hours as needed for wheezing/shortness of breath. (Patient not taking: Reported on 11/27/2023) ALLERGIES Allergen Reactions Gabapentin Other: See Comments Depression/suicidal ideation The medications and allergies were reviewed and reconciled for this patient and deemed current. Lung Cancer Risk Factors: 1.Tobacco Use: Start Age 22, Quit Age: 63, Average packs per day 1, Pack Years 42 2. Passive Smoke Exposure: No, 3. Personal hx of malignancy: Yes, Type of Cancer: Unknown 4. Significant exposures (1 year or more of exposure): Asbestos, 5. Race: White 6. Education: College Graduate 7. BMI:Body mass index is 32.84 kg/m . Patient-entered Height: 5'9 Patient-entered Weight: 220 pounds 8. COPD: Yes 9. Pneumonia in the past 5 years: No 10. Is there a history of lung cancer in a first degree relative? No 11. Is there a history of lung cancer in a non-first degree relative? No 12. Is there a history of any other cancer in a first degree relative? Yes Health Maintenance Immunization History Administered Date(s) Administered COVID-19 original vaccine, full dose, monovalent (MODERNA) 12/10/2020 01/07/2021 07/21/2021 12/27/2021 COVID-19 vaccine, age 12+ yr, bivalent (PFIZER-BIONTDatalogix) 07/04/2022 Haemophilus influenzae b (Hib PRP-OMP) vaccine, 3-dose series (PEDVAX HIB) 07/30/2018 07/23/2019 Haemophilus influenzae b (Hib PRP-T) vaccine, 4-dose series (ACTHIB, HIBERIX) 09/23/2019 diphtheria tetanus (DT) vaccine, pediatric 03/18/1996 hepatitis A-hepatitis B (HepA-HepB) vaccine (TWINRIX) 07/30/2018 07/23/2019 hepatitis B immune globulin (HBIG) (HEPAGAM B, HYPERHEP B, NABI-HB) 05/16/1994 06/23/1994 12/06/1994 influenza (HD-IIV3) vaccine, age 65+ yr, high dose, PF (FLUZONE HIGH-DOSE) 07/07/2016 06/26/2017 07/30/2018 07/15/2019 06/11/2020 influenza (HD-IIV4) vaccine, age 65+ yr, high dose, quadrivalent, PF (FLUZONE HIGH-DOSE) 06/11/2021 07/12/2023 influenza (IIV3) vaccine, age 3+ yr, trivalent (AFLURIA, FLULAVAL, FLUVIRIN, FLUZONE) 07/04/2014 2015 influenza (aIIV4) vaccine, age 65+ yr, quadrivalent, PF (FLUAD QUAD) 06/14/2022 meningococcal (MenACWY-D) vaccine, quadrivalent (MENACTRA) 09/23/2019 pneumococcal conjugate (PCV13) vaccine, 13 valent (PREVNAR 13) 07/07/2016 07/30/2018 07/23/2019 09/23/2019 pneumococcal polysaccharide (PPV23) vaccine, 23 valent (PNEUMOVAX 23) 03/15/2021 tetanus diphtheria (Td) vaccine, age 7+ yr, 5 Lf tetanus, PF (TENIVAC) 07/23/2019 09/23/2019 tetanus diphtheria pertussis (Tdap) vaccine, age 7+ yr (ADACEL, BOOSTRIX) 12/27/2011 07/30/2018 zoster (RZV) vaccine, recombinant (SHINGRIX) 02/01/2021 04/07/2021 06/14/2022 09/05/2022 zoster (ZVL) vaccine, live (ZOSTAVAX) 08/14/2012 Colonoscopy: 10/18/2023 Mammogram: DATA REVIEW I have directly visualized the testing documented: Prior Imaging: Last CT/CTA Chest/Lungs CT CHEST WO IVCON Exam End: 07/31/2023 10:48 AM (Final result) Narrative: * * *Final Report* * * DATE OF EXAM: Jul 31 2023 10:47AM [facility] [id number] - CT CHEST WO IVCON / PROCEDURE REASON: Lung nodules * * * * Physician Interpretation * * * * EXAMINATION: CHEST CT WITHOUT CONTRAST CLINICAL HISTORY: Lung nodules. History of multiple myeloma. Technique: Spiral CT acquisition of the chest from the thoracic inlet to the upper abdomen without contrast. MQ: [id number] CT Radiation dose: Integrated Dose-length product (DLP) for this visit = 240 mGy*cm CT Dose Reduction Employed: Automated exposure control(AEC) and iterative recon Comparison: CT chest 10/22/2019 and 08/30/2022 RESULT: Limitations: None. Lines, tubes, and devices: None. Lung parenchyma and airways: Stable subcentimeter pulmonary nodules. For example: *5 x 2 mm subpleural nodule posterior right upper lobe (6:34) *3 mm nodule in the anterior right middle lobe adjacent to the minor fissure (6:108) *3 mm subpleural nodule lateral right lower lobe (6:162) *3 mm nodule left upper lobe (6:45) No consolidation. Central airways are patent. Pleural space: No pleural effusion. No pleural thickening. Lower neck, lymph nodes, and mediastinum: The imaged thyroid gland is normal. No lymphadenopathy in the supraclavicular, axillary, mediastinal, or hilar regions. Heart, pericardium, and thoracic vessels: The thoracic aorta and main pulmonary artery are normal in caliber. The cardiac chambers are normal in size. Mild coronary artery atherosclerotic calcifications are noted, although the study is not optimized for coronary assessment. No pericardial effusion or thickening. Bones and soft tissues: Remote compression fractures of the vertebral bodies of T6 and T12. Multiple bilateral healed rib fractures. Generalized osteopenia. No lytic lesions consistent with patient's history of multiple myeloma. No chest wall mass. Upper abdomen: No abnormality in the imaged upper abdomen. Bookkeepers Supervisor (topogram) images: No additional findings. Impression: IMPRESSION: 1. Stable subcentimeter pulmonary nodules. No new suspicious pulmonary nodules 2. No thoracic lymphadenopathy 3. Again noted are multiple lytic lesions consistent with patient's history of multiple myeloma. Remote compression fractures of the vertebral bodies of T6 and T12. Multiple remote rib fractures. Electronics Engineering Manager: PSCB Transcribe Date/Time: Aug 01 2023 2:27P Dictated by : PAO GUERRA MD This examination was interpreted and the report reviewed and electronically signed by: PAO GUERRA MD on Aug 01 2023 3:04PM EST Last CT Chest - Impression Only CT CHEST WO IVCON Exam End: 07/31/2023 10:48 AM (Final result) Impression: IMPRESSION: 1. Stable subcentimeter pulmonary nodules. No new suspicious pulmonary nodules 2. No thoracic lymphadenopathy 3. Again noted are multiple lytic lesions consistent with patient's history of multiple myeloma. Remote compression fractures of the vertebral bodies of T6 and T12. Multiple remote rib fractures. ... Last XR Chest - Impression Only XR CHEST 2V FRONTAL/LAT Exam End: 07/27/2019 9:23 AM (Final result) Impression: IMPRESSION: RESULT: Lines, tubes, and devices: None. Lungs and pleura: Blunting of the RIGHT costophrenic angle may represent an effusion. Focal area of increased density projecting over the anterior aspect of the LEFT sixth rib near the junction with the costochondral cartilage.... Pulmonary Function Testing: SPIROMETRY BASELINE ONLY ([id number]) - ordered on 08/08/22 No textual results for order. PHYSICAL EXAM: BP 108/64 (BP Site: Right Arm) Pulse (!) 51 Temp 36.7 C (98.1 F) Ht 175.3 cm (5' 9) Wt 100.9 kg (222 lb 6.4 oz) SpO2 97% BMI 32.84 kg/m Deferred ASSESSMENT and RECOMMENDATIONS: 1. Screening for lung cancer: Six year risk for lung cancer: 5.19% [email or web address] I have determined that the patient is eligible for a low dose CT based on age, absence of signs or symptoms of lung cancer, and total pack years: Yes. The patient and I engaged in shared decision making, including the use of one or more decision aids, to include benefits, harms, follow-up diagnostic testing, over-diagnosis, false positive rate, andtotal radiation exposure. The patient understands and feels comfortable with it: Yes. The patient was counseled on the importance of adherence to annual LDCT lung cancer screening, impact of comorbidities and ability or willingness to undergo diagnosis and treatment. The patient understands and feels comfortable with it:No. Patient declines to participate at this time. He would not be due until 07/2024, and he was advised if he changes his mind to contact me for an order and to schedule. Lung nodules have been stable > 2 years and no further dedicated follow up is recommendedfor those. 2. Nicotine dependence: The patient was counseled on the importance of maintaining cigarette smoking abstinence - The patient is committed to remaining abstinent from tobacco. Christine Gaming APRN.CNP NPI #: November 27, 2023 8:34 AM documented in this encounterSam[facility]03-07-[facility]24 History of Present illness Narrative* Marta Lui RN - 11/23/2023 9:56 AM EST [facility] Telephonic Outreach Provider Action/FYI N/A Contacted for: Routine Telephonic Outreach Contact made with patient: Yes Patient identified by name and date of . Discussed care with patient Are you experiencing any new or worsening symptoms you need to talk about today? No Disease Specific Do you check your blood pressure at home? No Do you have new or worsening shortness of breath with activity? No Do you have new or worsening cough? Do you have new or worsening wheezing? No Do you need to use your rescue (Albuterol) inhaler or nebulizer more often than normal? No Based on stitching machine feeder or offbearer, the following disposition is advised: No symptoms or symptoms present, not severe. Routed to: No Action Needed MACO Education Provided this Outreach: No Monday11/20/23 started experiencing nasal stuffiness, coughing, runny nose- Dayquil and Nyquil are helping sx. No fever or chills Feels it's.on it's way out now Denies SOB. Nose is producing yellow drainage when he blows it, cough not productive. Discussed Express [facility] if sx do not improve. Verbalized understanding and agreement. Has pulmonary OV as below: Appointments for Next 60 Days Date Time Provider Location Dept Phone 11/27/2023 8:00 AM [facility]RIST[facility] GAMING [phone] Marta Lui RN November 23, 2023 10:06 AM documented in this encounterSam[facility]02-19-2024 Miscellaneous Notes* Telephone Encounter - Amy Monte - 11/06/2023 9:00 AM EST Patient has been scheduled for the below requested follow-up and a message was sent to him via Kauli with this appointment information Amy Barnes * Telephone Encounter - Dinorah Fernandez LPN - 11/06/2023 8:38 AM EST left VM that labs were normal. Will need 6 month OV and labs. Please set up with pt. Dinorah Fernandez LPN * Telephone Encounter - Dinorah Fernandez LPN - 11/06/2023 8:37 AM EST Images from the original note were not included. documented in this encounterSamaritan [facility]02-14-2024 History of Present illness Narrative* Loretta Leon PA-C - 11/01/2023 9:44 AM EST Images from the original note were not included. Patient: Ronnie Yarbrough PCP: Ovidio Vincent MD CC: follow up HPI: Ronnie Yarbrough 73 year old male former 40 pack year smoker, quitting 2011 with PMH significant for MM s/p BMT, COPD/CB, HTN, HLD, diastolic heart failure, inflammatory polyarthropathy, lower extremity DVT (r popliteal and l gastrocnemius) on Eliquis for 6 months (has completed), and pulmonary nodules. Most recent CT chest in July 2023 stable. Will be due to LDCT in July 2024. Current therapy with Trelegy and as needed Albuterol. Today, patient denies significant cough, sputum production, wheezing or SOB. He has completed his Eliquis. He follows with [facility]. No lower extremity edema. 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 Day: +12; Engrafted Protocol(s): 3422 1C Preparative regimen: melphalan Mobilization regimen: neupogen and plerixafor Stem cell source: apheresis CD34 cell dose (x10e6/kg): 5.14 Date of transplant: 06/15/2018 Bilateral leg edema 09/30/2022 Cancer of the skin, 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 Cervical spondylosis without myelopathy COPD (chronic obstructive pulmonary disease) ([facility]) 03/15/2021 Diabetic eye exam ([facility]) 09/09/2021 Last done 09/09/[address] Juve Reza Dilated aortic root ([facility]) 06/04/2023 Seeing Matthew Cardio Discoloration and thickening of nails both feet 10/06/2021 ED (erectile dysfunction) of organic origin 07/04/2022 Enlarged LA (left atrium) 06/04/2023 Seeing Matthew Cardio Essential hypertension 06/13/2018 -On lisinopril 10mg daily ( home med) -Will d/c for now given hyperkalemia . 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[facility]) ([facility]) 06/13/2018 --ppx ACV and cipro Inflammatory polyarthropathy ([facility]) Leg DVT (deep venous thromboembolism), acute, left ([facility]) 01/02/2018 --acute DVT gastrocnemius found 12/13/2017 --continue apixaban till platelets <50K, last dose 06/21/2018 Living will on file at physician's office 09/30/2022 DPA: BREN () Low serum vitamin B12 04/22/2021 Lumbar spinal stenosis Medicare annual wellness visit, subsequent 10/06/2021 Medicare part B: Not able to find, Last done: 10/06/2021 Mixed hyperlipidemia 10/31/2006 --will hold atorvastatin d/t interactions with chemotherapy can resume at discharge Multiple myeloma ([facility]) 11/28/2017 Multiple myeloma in remission ([facility]) Obesity, Class I, BMI 30-34.9 10/01/2012 Osteoarthritis of both hands Pancytopenia due to chemotherapy ([facility]) 06/25/2018 --Transfuse PRBC and platelets per protocol --GCSF Peripheral autonomic neuropathy in disorders classified elsewhere 06/07/2005 Pulmonary hypertension, unspecified ([facility]) 10/23/2019 Spinal stenosis, lumbar region, without neurogenic claudication 11/13/2006 Tobacco abuse 12/27/2011 Quit 2013 Type 2 diabetes mellitus without complication, without long-term current use of insulin ([facility]) 04/12/2018 Venous insufficiency, peripheral 01/06/2014 Vitamin D deficiency 12/31/2014 Allergies: Gabapentin Other: See Comments Comment:Depression/suicidal ideation Magnesium 250 mg tab Take 500mg in mornings and 250mg in evenings. torsemide (DEMADEX) 20 mg tablet Take 1 tablet by mouth two times a day. . omeprazole (PRILOSEC) 40 mg capsule TAKE ONE CAPSULE BY MOUTH ONCE DAILY ON AN EMPTY STOMACH dapagliflozin propanediol (FARXIGA) 10 mg tablet Take 1 tablet by mouth once daily. Take one daily in the morning losartan (COZAAR) 25 mg tablet Take 1 tablet by mouth once daily. atorvastatin (LIPITOR) 40 mg tablet Take 1 tablet by mouth once daily. metFORMIN (GLUCOPHAGE) 1,000 mg tablet Take 1 tablet by mouth two times a day with meals. Tadalafil (CIALIS) 20 mg tablet Take 1 tablet by mouth once daily. As needed dulaglutide (TRULICITY) 3 mg/0.5 mL pen injector Inject 3 mg subcutaneously one time a week. Injectonce per week. Discard Pen After carvedilol (COREG) 12.5 mg tablet Take 1 tablet by mouth two times a day. Per [facility] albuterol HFA (PROVENTIL HFA, VENTOLIN HFA) 90 mcg/actuation inhaler Inhale 2 Puffs as instructed every 6 hours as needed for wheezing/shortness of breath. clvajexidkg-sjnubfojn-hwhjtcbw (TRELEGY ELLIPTA) 100-62.5-25 mcg inhalation powder inhale 1 puff bymouth and INTO THE LUNGS once daily aspirin, enteric coated (ASPIRIN, ENTERIC COATED) 81 mg EC tablet Take 1 tablet by mouth once daily. Cholecalciferol, Vitamin D3, (VITAMIN D-3) 50 mcg (2,000 unit) cap Take 1 capsule by mouth once daily. terbinafine HCl (LAMISIL) 250 mg tablet Take 1 tablet by mouth once daily. cyanocobalamin (VITAMIN B-12) 1,000 mcg tab Take 1 tablet by mouth once daily. Calcium-Cholecalciferol, D3, 600 mg-5 mcg (200 unit) cap Take 1 capsule by mouth once daily. Social History Tobacco Use Smoking status: Former Packs/day: 1.00 Years: 41.00 Additional pack years: 0.00 Total pack years: 41.00 Types: Pipe, Cigarettes Start date: 1971 Quit date: 12/09/2011 Years since quittin.9 Smokeless tobacco: Never Tobacco comments: 1/4 pack of cigs; pipe smoker. None of either since cessation. No ETS in childhood home. Smoked up to one ppd Vaping Use Vaping Use: Never used Substance Use Topics Alcohol use: Yes Alcohol/week: 1.0 standard drink of alcohol Types: 1 Cans of beer per week Comment: seldom Drug use: Never Family History Problem Relation Age of Onset None Mother Cancer Father PANCREAS Diabetes Father Diabetes Sister None Brother Diabetes Paternal Grandmother COPD No Family History Asthma No Family History PAST SURGICAL HISTORY Procedure Laterality Date ANES ARTHROSCOPIC TOTAL SHOULDER REPLACEMENT Right 01/28/2013 [facility] - complete right shoulder replaceement ARTHRD ANT INTERBODY MIN DSC LUMBAR 2009 ARTHROTOMY W/MENISCUS REPAIR KNEE 1981 RIGHT ARTHROTOMY W/MENISCUS REPAIR KNEE 1982 LEFT ARTHRP KNE CONDYLE&PLATU MEDIAL&LAT COMPARTMENTS Right 2007 Knee replacement, total BACK SURGERY HX COLONOSCOPY FLX DX W/COLLJ SPEC WHEN PFRMD 09/25/2012 normal colonoscopy - 10 year follow up EGD TRANSORAL BIOPSY SINGLE/MULTIPLE 09/25/2012 mild distal esophagitis HAND BILATERAL OP SURGERY 2021 trigger finger/ cyst removal JOINT REPLACEMENT HX Right shoulder [id number]-TOTAL REPLACE/BOTH COMPART Left 08/21/2023 HARRIS W/O FACETEC FORAMOT/DSC 09/19 VRT SGM CRV 2007 Laminectomy, cervical PAST SURGICAL HISTORY OF Right 08/23/2021 carpal tunnel release with wrist arthrotomy and synovectomy PAST SURGICAL HISTORY OF Right 08/23/2021 ulnar nerve decompression PAST SURGICAL HISTORY OF 12/28/2022 bilateral revision lainectomy L1-L2, T11-T12 SKIN BIOPSY HX TONSILLECTOMY HX I reviewed the past medical history, family history, social history and surgical history with changes noted above and updated in EMR. IMMUNIZATIONS Prevnar - 09/2019 Pneumovax - 02/2021 Influenza - 2022 COVID-19 - most recent 06/2022 ROS: CONSTITUTIONAL: No fevers, chills, nightsweats, unintended weight loss HEENT: Denies post nasal drip or sinus congestion. Cataract surgery 10/31 CARDIOVASCULAR: No chest pain, dyspnea, palpitations, orthopnea, PND. PULM: See HPI. GI: No dysphagia/odynophagia, problematic reflux MUSC-SKEL: Chronic back pain secondary to lytic lesions, follows with pain managment INTEGUMENTARY: No new skin changes or rashes PHYSICAL EXAMINATION: BP (P) 126/84 Pulse (!) (P) 51 Resp (P) 12 Wt 99.8 kg (220 lb) SpO2 (P) 99% BMI 32.49 kg/m Gen: No acute distress. Cooperative with examination. HEENT: Normocephalic. Sclera, conjunctiva clear. Oral hygeine and dentition good. No thrush. Resp: No stridor, accessory respiratory muscle use, supra-sternal or intercostal retractions. No wheezes, crackles. CV: Irregularly regular with PVCs. Heart tones normal. Radial pulses normal. MSK: No kyphoscoliosis. Ext: Warm and well perfused. No clubbing, cyanosis, edema. Skin: No rash, ecchymoses. Neuro: Mental status normal. Affect normal. No tremor. DATA: PFT, 08/08/2022 IMPRESSION: Spirometry indicates mild obstruction. Electronically Signed On 08-08-2022 14:16:39 EST by Hayde Ward M.D. CT chest, 07/31/2023 IMPRESSION: 1. Stable subcentimeter pulmonary nodules. No new suspicious pulmonary nodules 2. No thoracic lymphadenopathy 3. Again noted are multiple lytic lesions consistent with patient's history of multiple myeloma. Remote compression fractures of the vertebral bodies of T6 and T12. Multiple remote rib fractures. Comparison: CT chest 10/22/2019 and 08/30/2022 RESULT: Limitations: None. Lines, tubes, and devices: None. Lung parenchyma and airways: Stable subcentimeter pulmonary nodules. For example: *5 x 2 mm subpleural nodule posterior right upper lobe (6:34) *3 mm nodule in the anterior right middle lobe adjacent to the minor fissure (6:108) *3 mm subpleural nodule lateral right lower lobe (6:162) *3 mm nodule left upper lobe (6:45) No consolidation. Central airways are patent. Pleural space: No pleural effusion. No pleural thickening. Lower neck, lymph nodes, and mediastinum: The imaged thyroid gland is normal. No lymphadenopathy in the supraclavicular, axillary, mediastinal, or hilar regions. Heart, pericardium, and thoracic vessels: The thoracic aorta and main pulmonary artery are normal in caliber. The cardiac chambers are normal in size. Mild coronary artery atherosclerotic calcifications are noted, although the study is not optimized for coronary assessment. No pericardial effusion or thickening. Bones and soft tissues: Remote compression fractures of the vertebral bodies of T6 and T12. Multiple bilateral healed rib fractures. Generalized osteopenia. No lytic lesions consistent with patient's history of multiple myeloma. No chest wall mass. Upper abdomen: No abnormality in the imaged upper abdomen. Bookkeepers Supervisor (topogram) images: No additional findings. ASSESSMENT/PLAN: 1. COPD with chronic bronchitis - ICD9: 491.20, ICD10: J44.89 (primary diagnosis) Continue Trelegy ellipta with as needed Albuterol. Up to date on annual influenza, pneumococcal and Covid 19 vaccines. 2. Former cigarette smoker - ICD9: V15.82, ICD10: Z87.891 Former 13-rxsa-okjh smoker having quit in 2011 with sequelae of COPD. Previously enrolled in lung cancer screening at [facility]. Would like to follow with [facility]. Patient will be due for LDCT in July 2024. - CONSULT LUNG CANCER SCREENING CLINIC 3. Lung nodules - ICD9: 793.19, ICD10: R91.8 Stable on most recent imaging. See #2. 4. Irregular heart beat - ICD9: 427.9, ICD10: I49.9 Patient is not in AFib, but possible PVCs. He has been taken off of his eliquis for DVT. Instructed him to call [facility] to follow up and notify them that he has discontinued his Eliquis. Portions of this documentation were copied and pasted from previous office visit notes in order to provide a cohesive continuity of the history. The note has been reviewed and edited and updated as necessary. Loretta Leon PA-C documented in this encounterSam[facility]02-09-2024 Miscellaneous Notes* Telephone Encounter - Slime Hernandez LPN - 10/27/2023 12:13 PM EST Pt advised of medication instructions. Pt verbalizes understanding. Slime Hernandez LPN * Telephone Encounter - Leslye Winter PA-C - 10/27/2023 11:24 AM EST Will have him increase to 500mg in morning and 250mg in evenings. Thanks. Leslye Winter PA-C * Telephone Encounter - Conrad Dickens, RN - 10/27/2023 9:55 AM EST Pt returned call and given provider's message below with verbalized understanding. Pt reports he istaking magnesium 250 mg twice daily. * Telephone Encounter - Slime Hernandez LPN - 10/27/2023 9:34 AM EST Left message for pt to contact office. Slime Hernandez LPN * Telephone Encounter - Leslye Winter PA-C - 10/27/2023 9:26 AM EST Magnesium improved but still slightly low. Ask him what OTC dose he is taking. Leslye Winter PA-C documented in this encounterSamaritan [facility] Center01-26-2024 Discharge summary Author Daniel Gupta [facility] October 13, 2023 7:20am Note Date/Time October 13, 2023 7 :20am [facility] [address] [place] [address] [address] [place] [address] / REHABILITATION SERVICES DISCHARGE SUMMARY MR#: [id number] Acct: [id number] Name: RONNIE YARBROUGH Rep #: [id number] : 1950 73 From: Daniel Gupta DPT, OCS, CSCS Referring DrAniceto: KENDY BURROUGHS Status: REG RCR Insurance: [employer] MCR SELF PAY INSURANCE Discharge Summary D/C summary: It has been my pleasure to treat RONNIE YARBROUGH referred by KENDY WATTLEY, ENDLESS TRACK VEHICLE MECHANIC-C, with the diagnosis of L TKA 08/22/23 for a total of 18 visit(s). Discharge Date: 10/13/23 Please see the following information for a summary of their discharge status. Subjective Subjective: Gym going well. No f/u with doctor. Pain level 2/10 transient withsteps. Sleeping is going well. Will continue gym exercises I. activities at home are normal outside of cutting Offermobi. Pain L knee: Pain Intensity (Out of 10): 0 Overall Improvement % Improvement: 85 Objective Objective/Function: 40# L quad and 39# L HS 16.5 inches girth at joint and 20 6 inch sp. 0-108 AROM L knee. 15 TUG Walking well with and without cane safe and I. Stiff L knee at first but loosens up. steps are reciprocal with one rail. Weakness evident on L but funcitonal. Goals Goal 1:: ST: L knee AROM 0-110 Goal Progress: Progressing Goal 2:: walk with cane into and out of PT without antalgia safely Goal Progress: Goal Met Goal 3:: LT: I appropr gym ex program to continue progress Goal Progress: Goal Met Goal 4:: Pain 0-1/10 at all times and sleeping without a problem Goal Progress: Goal Met Goal 5:: Plan to get back to [facility] Goal Progress: Goal Met Plan Plan: d/c to gyma dn home ex. D/C Information d/c sentence: If there are questions or concerns regarding this patient's physical therapy, please feel free to call me at [phone]. Thank you for the referral of thispatient. Sincerely, Daniel Gupta DPT, OCS, CSCS Balance/Gait/Functional tests Balance/Special Test Scores WOMAC Total Score: 20 WOMAC Percentage: 79.1700 Improvement % Improvement: 85 <Electronically signed by Daniel Gupta DPT, OCS, CSCS> 10/13/23 0720 CC: Dr. Ovidio Vincent MD; KENDY BURROUGHS ~ EBG Signed [facility] Work Phone: [phone] History of Present illness Narrative* Slime Hernandez LPN - 09/15/2023 8:59 AM EST Scan on 09/14/2023 6:03 PM by ProviderJustyn PA-C: Consultation - Ophthalmology documented in this encounterSam[facility]12-01-2023 History of Present illness Narrative* Slime Hernandez LPN - 08/18/2023 8:11 AM EST Scan on 08/17/2023 4:03 PM by Provider, SPENCER Alejandra: Consultation - Cardiology documented in this encounterSamaritan [facility] Center11-16-2023 Miscellaneous Notes* Telephone Encounter - Adrianne Hercules Cma - 08/03/2023 10:09 AM EST Pt notified and verbalized understanding Adrianne Hercules Cma * Telephone Encounter - Rebecca Jansen APRN.CNP - 08/03/2023 9:46 AM EST Please let patient know their labs are normal. documented in this encounterSamaritan [facility] Center11-14-2023 History of Present illness Narrative* Rebecca Jansen APRN.CNP - 08/01/2023 10:39 AM EST Chief Complaint No chief complaint on file. HPI Ronnie Yarbrough is a 73 year old male who presents here today for Above Complaints.. Patient presents for pre-op clearance for knee replacement. Patient having procedure completed withDr. Ahumada at [facility]. Past medical history, appointments, medications, allergies reviewed. 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 Day: +12; Engrafted Protocol(s): 3422 1C Preparative regimen: melphalan Mobilization regimen: neupogen and plerixafor Stem cell source: apheresis CD34 cell dose (x10e6/kg): 5.14 Date of transplant: 06/15/2018 Bilateral leg edema 09/30/2022 Cancer of the skin, 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 Cervical spondylosis without myelopathy COPD (chronic obstructive pulmonary disease) ([facility]) 03/15/2021 Diabetic eye exam ([facility]) 09/09/2021 Last done 09/09/[address] Juve Reza Dilated aortic root ([facility]) 06/04/2023 Seeing Matthew Cardio Discoloration and thickening of nails both feet 10/06/2021 ED (erectile dysfunction) of organic origin 07/04/2022 Enlarged LA (left atrium) 06/04/2023 Seeing [facility] Essential hypertension 06/13/2018 -On lisinopril 10mg daily ( home med) -Will d/c for now given hyperkalemia . 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 --ppx ACV and cipro Inflammatory polyarthropathy ([facility]) Leg DVT (deep venous thromboembolism), acute, left ([facility]) 01/02/2018 --acute DVT gastrocnemius found 12/13/2017 --continue apixaban till platelets <50K, last dose 06/21/2018 Living will on file at physician's office 09/30/2022 DPA: BREN () Low serum vitamin B12 04/22/2021 Lumbar spinal stenosis Medicare annual wellness visit, subsequent 10/06/2021 Medicare part B: Not able to find, Last done: 10/06/2021 Mixed hyperlipidemia 10/31/2006 --will hold atorvastatin d/t interactions with chemotherapy can resume at discharge Multiple myeloma ([facility]) 11/28/2017 Multiple myeloma in remission ([facility]) Obesity, Class I, BMI 30-34.9 10/01/2012 Osteoarthritis of both hands Pancytopenia due to chemotherapy ([facility]) 06/25/2018 --Transfuse PRBC and platelets per protocol --GCSF Peripheral autonomic neuropathy in disorders classified elsewhere 06/07/2005 Pulmonary hypertension, unspecified ([facility]) 10/23/2019 Spinal stenosis, lumbar region, without neurogenic claudication 11/13/2006 Tobacco abuse 12/27/2011 Quit 2013 Type 2 diabetes mellitus without complication, without long-term current use of insulin ([facility]) 04/12/2018 Venous insufficiency, peripheral 01/06/2014 Vitamin D deficiency 12/31/2014 Previous Surgical History PAST SURGICAL HISTORY Procedure Laterality Date ANES ARTHROSCOPIC TOTAL SHOULDER REPLACEMENT Right 01/28/2013 [facility] - complete right shoulder replaceement ARTHRD ANT INTERBODY MIN DSC LUMBAR 2009 ARTHROTOMY W/MENISCUS REPAIR KNEE 1981 RIGHT ARTHROTOMY W/MENISCUS REPAIR KNEE 1982 LEFT ARTHRP KNE CONDYLE&PLATU MEDIAL&LAT COMPARTMENTS Right 2007 Knee replacement, total BACK SURGERY HX COLONOSCOPY FLX DX W/COLLJ SPEC WHEN PFRMD 09/25/2012 normal colonoscopy - 10 year follow up EGD TRANSORAL BIOPSY SINGLE/MULTIPLE 09/25/2012 mild distal esophagitis HAND BILATERAL OP SURGERY 2021 trigger finger/ cyst removal JOINT REPLACEMENT HX Right shoulder HARRIS W/O FACETEC FORAMOT/DSC / VRT SGM CRV 2007 Laminectomy, cervical PAST SURGICAL HISTORY OF Right 08/23/2021 carpal tunnel release with wrist arthrotomy and synovectomy PAST SURGICAL HISTORY OF Right 08/23/2021 ulnar nerve decompression PAST SURGICAL HISTORY OF 12/28/2022 bilateral revision lainectomy L1-L2, T11-T12 SKIN BIOPSY HX TONSILLECTOMY HX Family History FAMILY HISTORY Problem Relation Age of Onset None Mother Cancer Father PANCREAS Diabetes Father Diabetes Sister None Brother Diabetes Paternal Grandmother COPD No Family History Asthma No Family History Patient Allergies ALLERGIES Allergen Reactions Gabapentin Other: See Comments Depression/suicidal ideation Current Medications Current Outpatient Medications on File Prior to Visit Medication Sig Magnesium Chloride (SLOW-MAG) 71.5 mg TbEC Take 2 tablets by mouth two times a day. albuterol HFA (PROVENTIL HFA, VENTOLIN HFA) 90 mcg/actuation inhaler Inhale 2 Puffs as instructed every 6 hours as needed for wheezing/shortness of breath. torsemide (DEMADEX) 20 mg tablet Take 1 tablet by mouth twice daily. . fluticasone (FLONASE) 50 mcg/actuation nasal spray Use 1 [place] in each nostril twice daily. Rinse mouth after use. carvedilol (COREG) 6.25 mg tablet Take 1 tablet by mouth twice daily. cmfaexsubcz-bbgjksvbk-fpwmmddc (TRELEGY ELLIPTA) 100-62.5-25 mcg inhalation powder inhale 1 puff bymouth and INTO THE LUNGS once daily aspirin, enteric coated (ASPIRIN, ENTERIC COATED) 81 mg EC tablet Take 1 tablet by mouth once daily. dapagliflozin propanediol (FARXIGA) 10 mg tablet Take 1 tablet by mouth once daily. Take one daily in the morning omeprazole (PRILOSEC) 40 mg capsule TAKE ONE CAPSULE BY MOUTH ONCE DAILY ON AN EMPTY STOMACH losartan (COZAAR) 25 mg tablet Take 1 tablet by mouth once daily. atorvastatin (LIPITOR) 40 mg tablet Take 1 tablet by mouth once daily. metFORMIN (GLUCOPHAGE) 1,000 mg tablet Take 1 tablet by mouth twice daily with meals. dulaglutide (TRULICITY) 1.5 mg/0.5 mL pen injector Inject 1.5 mg subcutaneously one time a week. Inject once per week. Discard Pen After apixaban (ELIQUIS) 5 mg tab(s) Take 1 tablet by mouth twice daily. Cholecalciferol, Vitamin D3, (VITAMIN D-3) 50 mcg (2,000 unit) cap Take 1 capsule by mouth once daily. enoxaparin (LOVENOX) 40 mg/0.4 mL Inject 0.4 mL subcutaneously once daily. The two days prior to your injection by Dr. Scherer Tadalafil (CIALIS) 20 mg tab(s) Take 1 tablet by mouth once daily. As needed terbinafine HCl (LAMISIL) 250 mg tablet Take 1 tablet by mouth once daily. cyanocobalamin (VITAMIN B-12) 1,000 mcg tab Take 1 tablet by mouth once daily. Calcium-Cholecalciferol, D3, 600 mg-5 mcg (200 unit) cap Take 1 capsule by mouth once daily. No current facility-administered medications on file prior to visit. Social History Social History Tobacco Use Smoking status: Former Packs/day: 1.00 Years: 41.00 Additional pack years: 0.00 Total pack years: 41.00 Types: Pipe, Cigarettes Start date: 1971 Quit date: 12/09/2011 Years since quittin.6 Smokeless tobacco: Never Tobacco comments: 1/4 pack of cigs; pipe smoker. None of either since cessation. No ETS in childhood home. Smoked up to one ppd Vaping Use Vaping Use: Never used Substance Use Topics Alcohol use: Yes Alcohol/week: 1.0 standard drink of alcohol Types: 1 Cans of beer per week Drug use: Never Review of Symptoms REVIEW OF SYSTEMS SEE HPI EXAM: BP 128/80 Pulse 86 Resp 16 Wt 100.2 kg (221 lb) BMI 32.64 kg/m General Appearance: Well appearing, alert, in no acute distress, well-hydrated, well nourished.. Lungs: Lungs clear to auscultation. No wheezing, rhonchi, rales.. Heart: Positive findings: murmur: Health Maintenance List RSV Vaccine(1 - 1-dose 60+ series) Never done Hepatitis B Vaccine(3 of 3 - Hep B Twinrix risk 3-dose series) due on 12/22/2019 Dilated Retinal Exam due on 09/09/2022 BP Controlled (<130/80) due on 10/06/2022 Covid-19 Vaccine( - 2022- season) due on 05/19/2023 Colorectal Cancer Screening due on 10/12/2023 Lung Cancer Screening due on 08/30/2023 Diabetic Foot Exam due on 09/30/2023 HbA1C due on 09/30/2023 Urine Albumin:Creatinine Ratio due on 10/12/2023 LDL Cholesterol due on 03/30/2024 Serum Creatinine due on 04/24/2024 Annual PCP Team Chronic Disease Visit due on 06/12/2024 DTaP,Tdap,Td Vaccine(6 - Td or Tdap) due on 09/23/2029 Spirometry Completed Abdominal Aortic Aneurysm Screening Completed Influenza Vaccine Completed Advance Directive Discussion Completed Depression Assessment Completed Shingrix Vaccine Completed Pneumococcal Vaccine: 65+ Completed HPV Vaccine Aged Out Alpha-1 Antitrypsin Deficiency Screening Discontinued Hepatitis C Screening Discontinued Data reviewed ECHO 05/29/2023-EF 70% with mild atrial enlargement ASSESSMENT/PLAN: 1. Pre-op testing - ICD9: V72.84, ICD10: Z01.818 - CBC + DIFF - COMP METABOLIC PANEL - ECHO from 05/29/2023 reviewed and copy to be sent with surgical clearance form. -Advised patient to make anesthesia aware of last dose of cialis as well due to effects on heart rate. -Advised patient to make appointment with cardiology fro cardiac clearance. Rebecca Jansen APRN.KELLEY documented in this encounterSam[facility]11-13-2023 History of Present illness Narrative* Lizzeth Lindsay RT(R) - 07/31/2023 10:40 AM EST Radiology Service Progress Note PATIENT NAME: Ronnie Yarbrough DATE OF SERVICE: July 31, 2023 TIME: 11:05 AM PATIENT IDENTITY VERIFICATION COMPLETED USING TWO (2) IDENTIFIERS: Name and Date of confirmedby patient verbally. FALL SCREENING: Has the patient had 2 falls in the last year or 1 fall with injury or currently using an Ambulatory Assistive Device (Walker, Cane, Wheelchair, Crutches, etc.)? No PATIENT GENDER DATA: Male PATIENT RELEVANT IMPLANT DATA REVIEWED: Yes RADIOLOGY DEPARTMENT: CT; Exam(s) Completed: Chest PERIPHERAL IV DATA: Not applicable SIGNED BY: RT Bertrand(Luciano) July 31, 2023 11:05 AM documented in this encounterSam[facility]11-08-2023 Miscellaneous Notes* Telephone Encounter - Marta Lui RN - 07/26/2023 3:29 PM EST Requestor:Patient Patient is identified by name and birthdate: Yes Patient reminded to check with pharmacy in 24-48 hours: Yes Prescriber Verified: Yes Pharmacy benefits have been verified: No Pharmacy updated in [facility]: Yes Is medication controlled substance: No Medication instructions verified (dose, dosing instructions [sig], dispense amount [30 or 90 day supply], refills): Yes -If medication is not on the MAR please get additional information Are any other medications due for a refill in the next 3 months: No This medication refill was requested by patient via My Chart on 06/12/23; however, it remains pended. Patient is requesting a refill today during [facility] outreach for [employer] Home Monitoring. Thank you. Requested Prescriptions Pending Prescriptions Disp Refills Magnesium Chloride (SLOW-MAG) 71.5 mg TbEC 120 tablet 3 Sig: Take 2 tablets by mouth two times a day. documented in this encounterSam[facility] Center11-08-2023 History of Present illness Narrative* Marta Lui RN - 07/26/2023 3:19 PM EST [facility] Telephonic Outreach Provider Action/FYI N/A Contacted for: Routine Telephonic Outreach Contact made with patient: Yes Patient identified by name and date of . Discussed care with patient Are you experiencing any new or worsening symptoms you need to talk about today? No Disease Specific Do you check your blood pressure at home? No Do you have new or worsening shortness of breath with activity? No Do you have new or worsening cough? No Do you have new or worsening wheezing? No Do you need to use your rescue (Albuterol) inhaler or nebulizer more often than normal? No Based on stitching machine feeder or offbearer, the following disposition is advised: No symptoms or symptoms present, not severe. Routed to: No Action Needed MACO Education Provided this Outreach: No Needs refill of Slow-Mag 71.5 TbEC 2 tabs twice daily sent to [facility]. Will pend to prescriber in separate refill encounter. Marta Lui RN July 26, 2023 3:23 PM documented in this encounterSam[facility]11-07-2023 History of Present illness Narrative* Marta Lui RN - 07/25/2023 1:17 PM EST [facility] Telephonic Outreach Provider Action/FYI N/A Contacted for: Routine Telephonic Outreach Contact made with patient: No, left message. Marta Lui RN July 25, 2023 1:21 PM documented in this encounterSam[facility]11-02-2023 Miscellaneous Notes* Telephone Encounter - Ramu Alanis MA - 07/20/2023 8:09 AM EDT Mailed letters to patient. Ramu Alanis MA * Telephone Encounter - Ovidio Vincent MD - 07/19/2023 5:50 PM EDT Both letters ready for patient. documented in this encounterSamaritan [facility]10-25-2023 History of Present illness Narrative* Loretta Leon PA-C - 07/12/2023 9:01 AM EDT Images from the original note were not included. Patient: Ronnie Yarbrough PCP: Ovidio Vincent MD CC: follow up HPI: Ronnie Yarbrough 73 year old male former 40 pack year smoker, quitting 2011 with PMH significant for MM s/p BMT, COPD/CB, HTN, HLD, diastolic heart failure, inflammatory polyarthropathy, lower extremity DVT (r popliteal and l gastrocnemius) on Eliquis for 6 months, and pulmonary nodules. Last LDCT in August 2022. Dr. Ward ordered a CT chest to be done in February 2023, however, patient cancelled it secondary to [id number] expense. Current therapy consists of Trelegy. No significant cough. Minimal wheezing. Exertional dyspnea with working out at [facility] [employer]. He does both resistance and cardio. He will get SOB with climbing stairs. Has noticed lower extremity edema since being on Duricef. PAST MEDICAL HISTORY Diagnosis Date Acute thromboembolism of deep veins of both lower extremities (HCC) 02/24/2023 Eliquis started 02/2023, can stop 08/2023 Advance directive discussed with patient 09/30/2022 Discussed 09/2022: up to date Allergic rhinitis 03/15/2021 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HCC) 06/13/2018 Day: +12; Engrafted Protocol(s): 3422 1C Preparative regimen: melphalan Mobilization regimen: neupogen and plerixafor Stem cell source: apheresis CD34 cell dose (x10e6/kg): 5.14 Date of transplant: 06/15/2018 Bilateral leg edema 09/30/2022 Cancer of the skin, 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 Cervical spondylosis without myelopathy COPD (chronic obstructive pulmonary disease) ([facility]) 03/15/2021 Diabetic eye exam ([facility]) 09/09/2021 Last done 09/09/[address] Juve Reza Dilated aortic root ([facility]) 06/04/2023 Seeing [facility] Discoloration and thickening of nails both feet 10/06/2021 ED (erectile dysfunction) of organic origin 07/04/2022 Enlarged LA (left atrium) 06/04/2023 Seeing [facility] Essential hypertension 06/13/2018 -On lisinopril 10mg daily ( home med) -Will d/c for now given hyperkalemia . 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 --ppx ACV and cipro Inflammatory polyarthropathy ([facility]) Leg DVT (deep venous thromboembolism), acute, left ([facility]) 01/02/2018 --acute DVT gastrocnemius found 12/13/2017 --continue apixaban till platelets <50K, last dose 06/21/2018 Living will on file at physician's office 09/30/2022 DPA: BREN () Low serum vitamin B12 04/22/2021 Lumbar spinal stenosis Medicare annual wellness visit, subsequent 10/06/2021 Medicare part B: Not able to find, Last done: 10/06/2021 Mixed hyperlipidemia 10/31/2006 --will hold atorvastatin d/t interactions with chemotherapy can resume at discharge Multiple myeloma ([facility]) 11/28/2017 Multiple myeloma in remission ([facility]) Obesity, Class I, BMI 30-34.9 10/01/2012 Osteoarthritis of both hands Pancytopenia due to chemotherapy ([facility]) 06/25/2018 --Transfuse PRBC and platelets per protocol --GCSF Peripheral autonomic neuropathy in disorders classified elsewhere 06/07/2005 Pulmonary hypertension, unspecified ([facility]) 10/23/2019 Spinal stenosis, lumbar region, without neurogenic claudication 11/13/2006 Tobacco abuse 12/27/2011 Quit 2013 Type 2 diabetes mellitus without complication, without long-term current use of insulin ([facility]) 04/12/2018 Venous insufficiency, peripheral 01/06/2014 Vitamin D deficiency 12/31/2014 Allergies: Gabapentin Other: See Comments Comment:Depression/suicidal ideation torsemide (DEMADEX) 20 mg tablet Take 1 tablet by mouth twice daily. . fluticasone (FLONASE) 50 mcg/actuation nasal spray Use 1 [place] in each nostril twice daily. Rinse mouth after use. cefADROxil (DURICEF) 500 mg capsule Take 1 capsule by mouth twice daily. carvedilol (COREG) 6.25 mg tablet Take 1 tablet by mouth twice daily. vnxntksnhfa-mczrxoxzd-ggfqvher (TRELEGY ELLIPTA) 100-62.5-25 mcg inhalation powder inhale 1 puff bymouth and INTO THE LUNGS once daily aspirin, enteric coated (ASPIRIN, ENTERIC COATED) 81 mg EC tablet Take 1 tablet by mouth once daily. dapagliflozin propanediol (FARXIGA) 10 mg tablet Take 1 tablet by mouth once daily. Take one daily in the morning omeprazole (PRILOSEC) 40 mg capsule TAKE ONE CAPSULE BY MOUTH ONCE DAILY ON AN EMPTY STOMACH losartan (COZAAR) 25 mg tablet Take 1 tablet by mouth once daily. atorvastatin (LIPITOR) 40 mg tablet Take 1 tablet by mouth once daily. metFORMIN (GLUCOPHAGE) 1,000 mg tablet Take 1 tablet by mouth twice daily with meals. dulaglutide (TRULICITY) 1.5 mg/0.5 mL pen injector Inject 1.5 mg subcutaneously one time a week. Inject once per week. Discard Pen After apixaban (ELIQUIS) 5 mg tab(s) Take 1 tablet by mouth twice daily. Cholecalciferol, Vitamin D3, (VITAMIN D-3) 50 mcg (2,000 unit) cap Take 1 capsule by mouth once daily. enoxaparin (LOVENOX) 40 mg/0.4 mL Inject 0.4 mL subcutaneously once daily. The two days prior to your injection by Dr. Scherer Magnesium Chloride (SLOW-MAG) 71.5 mg TbEC Take 2 tablets by mouth twice daily. Tadalafil (CIALIS) 20 mg tab(s) Take 1 tablet by mouth once daily. As needed terbinafine HCl (LAMISIL) 250 mg tablet Take 1 tablet by mouth once daily. cyanocobalamin (VITAMIN B-12) 1,000 mcg tab Take 1 tablet by mouth once daily. Calcium-Cholecalciferol, D3, 600 mg-5 mcg (200 unit) cap Take 1 capsule by mouth once daily. Social History Tobacco Use Smoking status: Former Packs/day: 1.00 Years: 41.00 Additional pack years: 0.00 Total pack years: 41.00 Types: Pipe, Cigarettes Start date: 1971 Quit date: 12/09/2011 Years since quittin.5 Smokeless tobacco: Never Tobacco comments: 1/4 pack of cigs; pipe smoker. None of either since cessation. No ETS in childhood home. Smoked up to one ppd Vaping Use Vaping Use: Never used Substance Use Topics Alcohol use: Yes Alcohol/week: 1.0 standard drink of alcohol Types: 1 Cans of beer per week Drug use: Never Family History Problem Relation Age of Onset None Mother Cancer Father PANCREAS Diabetes Father Diabetes Sister None Brother Diabetes Paternal Grandmother COPD No Family History Asthma No Family History PAST SURGICAL HISTORY Procedure Laterality Date ANES ARTHROSCOPIC TOTAL SHOULDER REPLACEMENT Right 01/28/2013 [facility] - complete right shoulder replaceement ARTHRD ANT INTERBODY MIN DSC LUMBAR 2009 ARTHROTOMY W/MENISCUS REPAIR KNEE 1981 RIGHT ARTHROTOMY W/MENISCUS REPAIR KNEE 1982 LEFT ARTHRP KNE CONDYLE&PLATU MEDIAL&LAT COMPARTMENTS Right 2007 Knee replacement, total BACK SURGERY HX COLONOSCOPY FLX DX W/COLLJ SPEC WHEN PFRMD 09/25/2012 normal colonoscopy - 10 year follow up EGD TRANSORAL BIOPSY SINGLE/MULTIPLE 09/25/2012 mild distal esophagitis HAND BILATERAL OP SURGERY 2021 trigger finger/ cyst removal JOINT REPLACEMENT HX Right shoulder HARRIS W/O FACETEC FORAMOT/DSC / VRT SGM CRV 2007 Laminectomy, cervical PAST SURGICAL HISTORY OF Right 08/23/2021 carpal tunnel release with wrist arthrotomy and synovectomy PAST SURGICAL HISTORY OF Right 08/23/2021 ulnar nerve decompression PAST SURGICAL HISTORY OF 12/28/2022 bilateral revision lainectomy L1-L2, T11-T12 SKIN BIOPSY HX TONSILLECTOMY HX I reviewed the past medical history, family history, social history and surgical history with changes noted above and updated in EMR. IMMUNIZATIONS Prevnar - 09/2019 Pneumovax - 02/2021 Influenza - 2022 COVID-19 - most recent 06/2022 ROS: CONSTITUTIONAL: No fevers, chills, nightsweats, unintended weight loss HEENT: Denies post nasal drip or sinus congestion. CARDIOVASCULAR: No chest pain, dyspnea, palpitations, orthopnea, PND. PULM: See HPI. GI: No dysphagia/odynophagia, problematic reflux MUSC-SKEL: DVT on Eliquis. Knee replacement planned for August. INTEGUMENTARY: No new skin changes or rashes PHYSICAL EXAMINATION: BP 130/72 (BP Site: Right Arm, BP Position: Sitting, BP Cuff Size: Regular Adult) Pulse 68 Resp14 Ht 175.3 cm (5' 9) Wt 105.2 kg (232 lb) SpO2 96% BMI 34.26 kg/m Gen: No acute distress. Cooperative with examination. HEENT: Normocephalic. Sclera, conjunctiva clear. Oral hygeine and dentition good. No thrush. Resp: No stridor, accessory respiratory muscle use, supra-sternal or intercostal retractions. No wheezes, crackles. CV: Regular rythm. Heart tones normal. Radial pulses normal. MSK: No kyphoscoliosis. Ext: Warm and well perfused. No clubbing, cyanosis. Bilateral lower extremity edema. Skin: No rash, ecchymoses. Neuro: Mental status normal. Affect normal. No tremor. DATA: PFT, 08/08/2022 IMPRESSION: Spirometry indicates mild obstruction. Electronically Signed On 08-08-2022 14:16:39 EST by Hayde Ward M.D. LDCT chest, 08/2022 [facility] ASSESSMENT/PLAN: 1. COPD with chronic bronchitis - ICD9: 491.20, ICD10: J44.89 (primary diagnosis) Continue Trelegy ellipta. Rinse mouth after each use to help prevent oral thrush. Albuterol HFA inhaler, 2 inhalations 10-15 minutes prior to activities associated with shortness ofbreath, and as needed for rescue relief of shortness of breath or wheezing, up to 4 times daily. 2. Lung nodules - ICD9: 793.19, ICD10: R91.8 Last LDCT at [facility] in August 2022 Lung-RADS category 3. Patient was scheduled for a follow up CT chest in February 2023. However, he cancelled it secondary to the amount of lwj-gw-[id number] expense. I am going to obtain a HRCT now. - CT CHEST WO IVCON 3. Need for influenza vaccination - ICD9: V04.81, ICD10: Z23 - INFLUENZA VACCINE, PRSV FREE, AGE 65+ YR, HIGH DOSE, QUADRIVALENT (FLUZONE HIGH-DOSE) 4. Former cigarette smoker - ICD9: V15.82, ICD10: Z87.891 Former 60-gxpx-ugoz smoker having quit in 2011 with sequelae of COPD. See #2. Portions of this documentation were copied and pasted from previous office visit notes in order to provide a cohesive continuity of the history. The note has been reviewed and edited and updated as necessary. Loretta Leon PA-C documented in this encounterSam[facility]10-10-2023 History of Present illness Narrative* Marta Lui RN - 06/27/2023 11:04 AM EDT [facility] Telephonic Outreach Provider Action/FYI N/A Contacted for: Routine Telephonic Outreach Contact made with patient: No, left message. Marta Lui RN June 27, 2023 11:08 AM documented in this encounterSamaritan [facility] Center10-06-2023 Miscellaneous Notes* Telephone Encounter - Ramu Alanis MA - 06/23/2023 3:10 PM EDT Faxed. Ramu Alanis MA * Telephone Encounter - Ovidio Vincent MD - 06/23/2023 2:15 PM EDT form completed and ready to be returned. * Telephone Encounter - Slime Hernandez LPN - 06/23/2023 10:20 AM EDT Received fax from [facility] wanting to see if pt can stop Eliquis before procedure. Form on pcp's desk. 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 If you start to notice issues with starting your urination stop it. documented in this encounterSamaritan [facility] Center09-25-2023 History of Present illness Narrative* Ovidio Vincent MD - 06/12/2023 1:20 PM EDT Chief Complaint Patient presents with: Hearing Problem: Left ear plugged HPI Ronnie Yarbrough is a 72 year old male who presents here today for hearing concern. Pt c/o decreased hearing in both ears, left worse x 3 weeks. He was ill with a cold prior, went to , was negative for flu, RSV, and Covid-19. He states he still has a little bit of head or sinus congestion, coughing up some phlegm still. No fevers. No nasal discharge or sore throat. Left ear hurts some. Has not tried anything OTC yet. Past medical history, appointments, medications, allergies reviewed. 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 Day: +12; Engrafted Protocol(s): 3422 1C Preparative regimen: melphalan Mobilization regimen: neupogen and plerixafor Stem cell source: apheresis CD34 cell dose (x10e6/kg): 5.14 Date of transplant: 06/15/2018 Bilateral leg edema 09/30/2022 Cancer of the skin, 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 Cervical spondylosis without myelopathy COPD (chronic obstructive pulmonary disease) ([facility]) 03/15/2021 Diabetic eye exam ([facility]) 09/09/2021 Last done 09/09/[address] Juve Reza Dilated aortic root ([facility]) 06/04/2023 Seeing [facility] Discoloration and thickening of nails both feet 10/06/2021 ED (erectile dysfunction) of organic origin 07/04/2022 Enlarged LA (left atrium) 06/04/2023 Seeing [facility] Essential hypertension 06/13/2018 -On lisinopril 10mg daily ( home med) -Will d/c for now given hyperkalemia . 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 --ppx ACV and cipro Inflammatory polyarthropathy ([facility]) Leg DVT (deep venous thromboembolism), acute, left ([facility]) 01/02/2018 --acute DVT gastrocnemius found 12/13/2017 --continue apixaban till platelets <50K, last dose 06/21/2018 Living will on file at physician's office 09/30/2022 DPA: BREN () Low serum vitamin B12 04/22/2021 Lumbar spinal stenosis Medicare annual wellness visit, subsequent 10/06/2021 Medicare part B: Not able to find, Last done: 10/06/2021 Mixed hyperlipidemia 10/31/2006 --will hold atorvastatin d/t interactions with chemotherapy can resume at discharge Multiple myeloma ([facility]) 11/28/2017 Multiple myeloma in remission ([facility]) Obesity, Class I, BMI 30-34.9 10/01/2012 Osteoarthritis of both hands Pancytopenia due to chemotherapy ([facility]) 06/25/2018 --Transfuse PRBC and platelets per protocol --GCSF Peripheral autonomic neuropathy in disorders classified elsewhere 06/07/2005 Pulmonary hypertension, unspecified ([facility]) 10/23/2019 Spinal stenosis, lumbar region, without neurogenic claudication 11/13/2006 Tobacco abuse 12/27/2011 Quit 2013 Type 2 diabetes mellitus without complication, without long-term current use of insulin ([facility]) 04/12/2018 Venous insufficiency, peripheral 01/06/2014 Vitamin D deficiency 12/31/2014 Previous Surgical History PAST SURGICAL HISTORY Procedure Laterality Date ANES ARTHROSCOPIC TOTAL SHOULDER REPLACEMENT Right 01/28/2013 [facility] - complete right shoulder replaceement ARTHRD ANT INTERBODY MIN DSC LUMBAR 2009 ARTHROTOMY W/MENISCUS REPAIR KNEE 1980 RIGHT ARTHROTOMY W/MENISCUS REPAIR KNEE 1982 LEFT ARTHRP KNE CONDYLE&PLATU MEDIAL&LAT COMPARTMENTS Right 2007 Knee replacement, total BACK SURGERY HX COLONOSCOPY FLX DX W/COLLJ SPEC WHEN PFRMD 09/25/2012 normal colonoscopy - 10 year follow up EGD TRANSORAL BIOPSY SINGLE/MULTIPLE 09/25/2012 mild distal esophagitis HAND BILATERAL OP SURGERY 2021 trigger finger/ cyst removal JOINT REPLACEMENT HX Right shoulder HARRIS W/O FACETEC FORAMOT/DSC 09/19 VRT SGM CRV 2007 Laminectomy, cervical PAST SURGICAL HISTORY OF Right 08/23/2021 carpal tunnel release with wrist arthrotomy and synovectomy PAST SURGICAL HISTORY OF Right 08/23/2021 ulnar nerve decompression PAST SURGICAL HISTORY OF 12/28/2022 bilateral revision lainectomy L1-L2, T11-T12 SKIN BIOPSY HX TONSILLECTOMY HX Family History FAMILY HISTORY Problem Relation Age of Onset None Mother Cancer Father PANCREAS Diabetes Father Diabetes Sister None Brother Diabetes Paternal Grandmother COPD No Family History Asthma No Family History Patient Allergies ALLERGIES Allergen Reactions Gabapentin Other: See Comments Depression/suicidal ideation Current Medications Current Outpatient Medications on File Prior to Visit Medication Sig carvedilol (COREG) 6.25 mg tablet Take 1 tablet by mouth twice daily. vembmrfzljj-thmsaxfbs-drkkfwmu (TRELEGY ELLIPTA) 100-62.5-25 mcg inhalation powder inhale 1 puff bymouth and INTO THE LUNGS once daily aspirin, enteric coated (ASPIRIN, ENTERIC COATED) 81 mg EC tablet Take 1 tablet by mouth once daily. dapagliflozin propanediol (FARXIGA) 10 mg tablet Take 1 tablet by mouth once daily. Take one daily in the morning omeprazole (PRILOSEC) 40 mg capsule TAKE ONE CAPSULE BY MOUTH ONCE DAILY ON AN EMPTY STOMACH losartan (COZAAR) 25 mg tablet Take 1 tablet by mouth once daily. atorvastatin (LIPITOR) 40 mg tablet Take 1 tablet by mouth once daily. metFORMIN (GLUCOPHAGE) 1,000 mg tablet Take 1 tablet by mouth twice daily with meals. dulaglutide (TRULICITY) 1.5 mg/0.5 mL pen injector Inject 1.5 mg subcutaneously one time a week. Inject once per week. Discard Pen After apixaban (ELIQUIS) 5 mg tab(s) Take 1 tablet by mouth twice daily. Cholecalciferol, Vitamin D3, (VITAMIN D-3) 50 mcg (2,000 unit) cap Take 1 capsule by mouth once daily. enoxaparin (LOVENOX) 40 mg/0.4 mL Inject 0.4 mL subcutaneously once daily. The two days prior to your injection by Dr. Scherer Magnesium Chloride (SLOW-MAG) 71.5 mg TbEC Take 2 tablets by mouth twice daily. Tadalafil (CIALIS) 20 mg tab(s) Take 1 tablet by mouth once daily. As needed torsemide (DEMADEX) 20 mg tablet Take 1 tablet by mouth twice daily. . terbinafine HCl (LAMISIL) 250 mg tablet Take 1 tablet by mouth once daily. cyanocobalamin (VITAMIN B-12) 1,000 mcg tab Take 1 tablet by mouth once daily. Calcium-Cholecalciferol, D3, 600 mg-5 mcg (200 unit) cap Take 1 capsule by mouth once daily. No current facility-administered medications on file prior to visit. Social History Social History Tobacco Use Smoking status: Former Packs/day: 1.00 Years: 41.00 Additional pack years: 0.00 Total pack years: 41.00 Types: Pipe, Cigarettes Start date: 1971 Quit date: 12/09/2011 Years since quittin.5 Smokeless tobacco: Never Tobacco comments: 1/4 pack of cigs; pipe smoker. None of either since cessation. No ETS in childhood home. Smoked up to one ppd Vaping Use Vaping Use: Never used Substance Use Topics Alcohol use: Yes Comment: rare Drug use: No Review of Symptoms REVIEW OF SYSTEMS See HPI EXAM: BP 120/74 Pulse 80 Temp 36.7 C (98 F) (Tympanic) Resp 16 Wt 100.4 kg (221 lb 6.4 oz) BMI 32.70 kg/m General Appearance: Well appearing, alert, in no acute distress, well-hydrated, well nourished.. Eyes: Anicteric sclera. Pupils are equally round and reactive to light. Extraocular movements are intact. . Ears: the right ear, canal and TM were normal. The left ear and canal were normal. The left Tm is retracted with suspected slight effusion. No pus.. Oropharynx: Lips, mucosa, and tongue normal, teeth and gums normal, oropharynx normal. Neck: Supple, no adenopathy; thyroid symmetric, normal size, no bruits. Lungs: Lungs clear to auscultation. No wheezing, rhonchi, rales.. Heart: RRR without murmur, gallop, or rubs. No ectopy. Health Maintenance List Hepatitis B Vaccine(3 of 3 - Hep B Twinrix risk 3-dose series) due on 12/22/2019 Covid-19 Vaccine(6 - Moderna risk series) due on 08/29/2022 Dilated Retinal Exam due on 09/09/2022 BP Controlled (<130/80) due on 10/06/2022 Influenza Vaccine(1) due on 05/19/2023 Lung Cancer Screening due on 08/30/2023 Diabetic Foot Exam due on 09/30/2023 HbA1C due on 09/30/2023 Urine Albumin:Creatinine Ratio due on 10/12/2023 Colorectal Cancer Screening due on 10/12/2023 LDL Cholesterol due on 03/30/2024 Annual PCP Team Chronic Disease Visit due on 03/30/2024 Serum Creatinine due on 04/24/2024 DTaP,Tdap,Td Vaccine(6 - Td or Tdap) due on 09/23/2029 Spirometry Completed Abdominal Aortic Aneurysm Screening Completed Advance Directive Discussion Completed Depression Assessment Completed Shingrix Vaccine Completed Pneumococcal Vaccine: 65+ Completed HPV Vaccine Aged Out Alpha-1 Antitrypsin Deficiency Screening Discontinued Hepatitis C Screening Discontinued Data reviewed A/P ASSESSMENT/PLAN: 1. Dysfunction of left eustachian tube - ICD9: 381.81, ICD10: H69.92 - will place on Flonase as below. - advised on taking OTC Claritin Since he will be gone in [place] for 3 weeks he was given a script for Duricef 500 mg twice a day to start if ear pain starts to increase. Requested Prescriptions Signed Prescriptions Disp Refills fluticasone (FLONASE) 50 mcg/actuation nasal spray 1 Each 1 Sig: Use 1 [place] in each nostril twice daily. Rinse mouth after use. cefADROxil (DURICEF) 500 mg capsule 20 capsule 0 Sig: Take 1 capsule by mouth twice daily. Ovidio Vincent MD documented in this encounterSam[facility]09-18-2023 Miscellaneous Notes* Telephone Encounter - Ovidio Vincent MD - 06/05/2023 4:48 PM EDT The following approved medication requests have been transmitted electronically. Requested Prescriptions Signed Prescriptions Disp Refills carvedilol (COREG) 6.25 mg tablet 180 tablet 1 Sig: Take 1 tablet by mouth twice daily. Authorizing Provider: OVIDIO VINCENT MD * Telephone Encounter - Ace Downs LPN - 06/05/2023 2:45 PM EDT Per Cardiology note scanned into Epic on 05/02/23 pt was to increase carvedilol to 6.25mg twice daily. Ace Downs LPN * Telephone Encounter - Ovidio Vincent MD - 06/05/2023 1:00 PM EDT Find out from patient if his Coreg does was increased to 6.25 by [facility] back in April. Since my records show he was on 3.125 mg twice a day by use and [facility] is saying he filled a script in [place] under Dr. Gamble with [facility] on 05/02/2023 for the 6.25 mg twice a day. * Telephone Encounter - Arlet Clemens LPN - 06/05/2023 11:41 AM EDT Pao a pharmacist with [facility] calls to verify rx for carvedilol 3.125 bid from 05/29/23.Pao reports they have on file that pt filled rx at a local pharmacy for carvedilol 6.25 bid on 05/02 for #[address] Gamble. Pao is asking what dose pt is supposed to be on. Call [phone]. Ref# [id number] Arlet Clemens LPN documented in this encounterSamaritan [facility] Center09-15-2023 History of Present illness Narrative* Slime Hernandez LPN - 06/02/2023 10:07 AM EDT Scan on 06/01/2023 3:57 PM by Provider, External, PAAndriyC: Echo documented in this encounterSamaritan [facility] Center09-11-2023 Miscellaneous Notes* Telephone Encounter - Ovidio Vincent MD - 05/29/2023 12:22 PM EDT The following approved medication requests have been transmitted electronically. Requested Prescriptions Signed Prescriptions Disp Refills carvedilol (COREG) 3.125 mg tablet 180 tablet 1 Sig: Take 1 tablet by mouth twice daily. Ovidio Vincent MD documented in this encounterSamaritan [facility] Center09-08-2023 History of Present illness Narrative* Hayde Mejia Ma - 05/26/2023 8:28 AM EDT Scan on 05/25/2023 4:58 PM by Provider, Justyn PA-C: Consultation - PT/OT/Speech documented in this encounterSamaritan North Health Center09-07-2023 Discharge summary Author Deysi Bass [facility] May 25, 2023 12:34pm Note Date/Time May 25, 2023 12:35pm [facility] [address] [place] [address] / REHABILITATION SERVICES DISCHARGE SUMMARY MR#: [id number] Acct: [id number] Name: RONNIE YARBROUGH Rep #: [id number] : 1950 72 From: Deysi Bass PT, Cert. MDT Referring Dr.: Dr. Ovidio Vincent MD Status: REG RCR Insurance: [facility] S[employer]Y [employer]URANCE Patient Information Patient Information: RONNIE YARBROUGH was seen in my office for initial evaluation on 01/19/23. The following Plan of Care was established for this patient: POC Established Initial Frequency: 2-3x /Week Initial Duration: 4-6 Weeks Anticipated Interventions Patient/Client Instruction: Educate patient on: Condition, Plan of Care and Risk Factors For the Purpose of:: To improve self management Therapeutic Exercise to Include: Strength training, Endurance training, Balance training, Body mechanics, Postural training, Flexibilty training, Gait and locomotor training, Neuromotor development and Dynamic Lumbar Stabilization For the Purpose of:: To decrease pain, To increase ROM, To improve muscle performance and motor function, To increase tolerance to activity/condition/position, To improve ability of physical actions for home/community/work/leisure, To improve gait and locomotor functions, To improveendurance and To improve safety with gait Last Seen Last Seen: This patient was last seen in our office 03/07/23. Pertinent comments regardingtheir Physical therapy will appear below: 03/07/23: THIS PATIENT WAS FOUND WITH AND STRETCHING ON SLANT BOARD. WE STARTED WALKING TO [facility] ROOM AND PATIENT HAD NEAR FALL WHEN L KNEE BUCKLED AND HE CAUGHT HIMSELF ON THE PARALLEL BARS. HE CAME TO PT WITH CANE INSTEAD OF WALKER FOR FIRST TIME TODAY. PATIENT DID NOT WANT TO STOP WALKING BUT THIS PT INSISTED ON STOPPING AND ALLOWING GAIT BELT TO BE USED. WE GOT HIM ONE OF OUR WALKERS FOR SAFETY. PATIENT REPORTS HIS KNEE HAS BEEN BUCKLING MORE AND HURTINGMORE. REPORTS BEING TOLD 20 YEARS AGO IT NEEDS REPLACED. HE REPORTS THE BACK SURGEON RELEASED HIM LAST VISIT. THIS PT RECOMMENDED KNEE ORTHO CONSULT AND USE OF WALKER BEFORE CONTINUING PT. PATIENT AGREEABLE ALTHOUGH HE WISHES HIS KNEE WASN'T BEING BIG OF A PROBLEM IT IS. PRESENT THROUGHOUT. ADVISED PATIENT ON RISK OF FALLING EVEN WITH WALKER DUE TO L KNEE INSTABILITY. PATIENT COMMUNICATED UNDERSTANDING. 05/25/23: This patient has not returned to Physical Therapy at this time and is appropriate to return to MD for further follow-up as needed. At this point I will be discontinuing this patient from physical therapy. I would be happy to see this patient again in the future if found appropriate by the physician. Thank you! Deysi Bass, PT, Cert MDT Balance/Gait/Functional tests Balance/Special Test Scores CATSIB Score (Max score 120 seconds): 85 Oswestry Low Back Score: 6 TUG Test Time Seconds: 9.1 Tug Test: <10 sec.=free mobile 30 Second Chair Rise Test Seconds: 10 <Electronically signed by Deysi Bass PT, Cert. MDT> 05/25/23 7200 CC: Dr. Ovidio Vincent MD; Dr. Shabbir Davila MD ~ SHEEBA Signed [facility] Work Phone: [phone]) 304-278709-07-2023 History of Present illness Narrative* Marni Gonzalez PA-C - 05/25/2023 12:26 PM EDT This note was created using NoteWriter. Subjective Ronnie Yarbrough is a 72 year old male. HPI Patient presents with head congestion and cough over the past 2 days. Denies chest pain or shortness of breath he does not feel his COPD is flared up. No fever that he knows of. He has had some chills. He did take some DayQuil this morning and temp here is 99.5. No vomiting or diarrhea. Mild sore throat. His ears are bothering him. He does have a history of multiple myeloma, has been in remissionsince 2018. No home COVID test done. He has not had COVID previously. He is up-to-date on immunizations per the patient. Review of Systems Constitutional: Positive for chills and fatigue. HENT: Positive for congestion, ear pain, rhinorrhea and sore throat. Respiratory: Positive for cough. Negative for chest tightness, shortness of breath and wheezing. Cardiovascular: Negative. Gastrointestinal: Negative. Genitourinary: Negative. Musculoskeletal: Positive for myalgias. Neurological: Positive for headaches. All other systems reviewed and are negative. 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 Day: +12; Engrafted Protocol(s): 3422 1C Preparative regimen: melphalan Mobilization regimen: neupogen and plerixafor Stem cell source: apheresis CD34 cell dose (x10e6/kg): 5.14 Date of transplant: 06/15/2018 Bilateral leg edema 09/30/2022 Cancer of the skin, 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 --ppx ACV and cipro Inflammatory polyarthropathy ([facility]) Leg DVT (deep venous thromboembolism), acute, left ([facility]) 01/02/2018 --acute DVT gastrocnemius found 12/13/2017 --continue apixaban till platelets <50K, last dose 06/21/2018 Living will on file at physician's office 09/30/2022 DPA: BREN () Low serum vitamin B12 04/22/2021 Lumbar spinal stenosis Medicare annual wellness visit, subsequent 10/06/2021 Medicare part B: Not able to find, Last done: 10/06/2021 Mixed hyperlipidemia 10/31/2006 --will hold atorvastatin d/t interactions with chemotherapy can resume at discharge Multiple myeloma ([facility]) 11/28/2017 Multiple myeloma in remission ([facility]) Obesity, Class I, BMI 30-34.9 10/01/2012 Osteoarthritis of both hands Pancytopenia due to chemotherapy ([facility]) 06/25/2018 --Transfuse PRBC and platelets per protocol --GCSF Peripheral autonomic neuropathy in disorders classified elsewhere 06/07/2005 Pulmonary hypertension, unspecified ([facility]) 10/23/2019 Spinal stenosis, lumbar region, without neurogenic claudication 11/13/2006 Tobacco abuse 12/27/2011 Quit 2012 Type 2 diabetes mellitus without complication, without long-term current use of insulin ([facility]) 04/12/2018 Venous insufficiency, peripheral 01/06/2014 Vitamin D deficiency 12/31/2014 Current Outpatient Medications Medication Sig Dispense Refill baekosianbr-qfizcwdhq-bhbnurso (TRELEGY ELLIPTA) 100-62.5-25 mcg inhalation powder inhale 1 puff bymouth and INTO THE LUNGS once daily 3 Each 3 aspirin, enteric coated (ASPIRIN, ENTERIC COATED) 81 mg EC tablet Take 1 tablet by mouth once daily. 100 tablet 3 carvedilol (COREG) 3.125 mg tablet Take 1 tablet by mouth twice daily. 180 tablet 1 dapagliflozin propanediol (FARXIGA) 10 mg tablet Take 1 tablet by mouth once daily. Take one daily in the morning 90 tablet 1 omeprazole (PRILOSEC) 40 mg capsule TAKE ONE CAPSULE BY MOUTH ONCE DAILY ON AN EMPTY STOMACH 90 capsule 1 losartan (COZAAR) 25 mg tablet Take 1 tablet by mouth once daily. 90 tablet 1 atorvastatin (LIPITOR) 40 mg tablet Take 1 tablet by mouth once daily. 90 tablet 1 metFORMIN (GLUCOPHAGE) 1,000 mg tablet Take 1 tablet by mouth twice daily with meals. 180 tablet 1 dulaglutide (TRULICITY) 1.5 mg/0.5 mL pen injector Inject 1.5 mg subcutaneously one time a week. Inject once per week. Discard Pen After 4 Each 5 apixaban (ELIQUIS) 5 mg tab(s) Take 1 tablet by mouth twice daily. 180 tablet 1 Cholecalciferol, Vitamin D3, (VITAMIN D-3) 50 mcg (2,000 unit) cap Take 1 capsule by mouth once daily. 90 capsule 3 enoxaparin (LOVENOX) 40 mg/0.4 mL Inject 0.4 mL subcutaneously once daily. The two days prior to your injection by Dr. Scherer 2 Each 0 Magnesium Chloride (SLOW-MAG) 71.5 mg TbEC Take 2 tablets by mouth twice daily. 120 tablet 3 Tadalafil (CIALIS) 20 mg tab(s) Take 1 tablet by mouth once daily. As needed 30 tablet 2 torsemide (DEMADEX) 20 mg tablet Take 1 tablet by mouth twice daily. . 90 tablet 1 terbinafine HCl (LAMISIL) 250 mg tablet Take 1 tablet by mouth once daily. 30 tablet 2 cyanocobalamin (VITAMIN B-12) 1,000 mcg tab Take 1 tablet by mouth once daily. Calcium-Cholecalciferol, D3, 600 mg-5 mcg (200 unit) cap Take 1 capsule by mouth once daily. No current facility-administered medications for this visit. PAST SURGICAL HISTORY Procedure Laterality Date ANES ARTHROSCOPIC TOTAL SHOULDER REPLACEMENT Right 01/28/2013 [facility] - complete right shoulder replaceement ARTHRD ANT INTERBODY MIN DSC LUMBAR 2009 ARTHROTOMY W/MENISCUS REPAIR KNEE 1981 RIGHT ARTHROTOMY W/MENISCUS REPAIR KNEE 1982 LEFT ARTHRP KNE CONDYLE&PLATU MEDIAL&LAT COMPARTMENTS Right 2007 Knee replacement, total BACK SURGERY HX COLONOSCOPY FLX DX W/COLLJ SPEC WHEN PFRMD 09/25/2012 normal colonoscopy - 10 year follow up EGD TRANSORAL BIOPSY SINGLE/MULTIPLE 09/25/2012 mild distal esophagitis HAND BILATERAL OP SURGERY 2021 trigger finger/ cyst removal JOINT REPLACEMENT HX Right shoulder HARRIS W/O FACETEC FORAMOT/DSC 09/19 VRT SGM CRV 2007 Laminectomy, cervical PAST SURGICAL HISTORY OF Right 08/23/2021 carpal tunnel release with wrist arthrotomy and synovectomy PAST SURGICAL HISTORY OF Right 08/23/2021 ulnar nerve decompression PAST SURGICAL HISTORY OF 12/28/2022 bilateral revision lainectomy L1-L2, T11-T12 SKIN BIOPSY HX TONSILLECTOMY HX FAMILY HISTORY Problem Relation Age of Onset None Mother Cancer Father PANCREAS Diabetes Father Diabetes Sister None Brother Diabetes Paternal Grandmother COPD No Family History Asthma No Family History Social History Tobacco Use Smoking status: Former Packs/day: 1.00 Years: 41.00 Additional pack years: 0.00 Total pack years: 41.00 Types: Pipe, Cigarettes Start date: 1971 Quit date: 12/09/2011 Years since quittin.4 Smokeless tobacco: Never Tobacco comments: 1/4 pack of cigs; pipe smoker. None of either since cessation. No ETS in childhood home. Smoked up to one ppd Vaping Use Vaping Use: Never used Substance Use Topics Alcohol use: Yes Comment: rare Drug use: No Objective BP 136/78 Pulse 90 Temp 37.5 C (99.5 F) Resp 22 Wt 101.6 kg (224 lb) SpO2 95% BMI 33.08kg/m Physical Exam Vitals reviewed. Constitutional: Appearance: Normal appearance. HENT: Head: Normocephalic and atraumatic. Right Ear: Tympanic membrane, ear canal and external ear normal. Left Ear: Tympanic membrane, ear canal and external ear normal. Nose: Congestion present. Mouth/Throat: Mouth: Mucous membranes are moist. Pharynx: Oropharynx is clear. Cardiovascular: Rate and Rhythm: Normal rate and regular rhythm. Heart sounds: Normal heart sounds. Pulmonary: Effort: Pulmonary effort is normal. Breath sounds: Normal breath sounds. No wheezing, rhonchi or rales. Musculoskeletal: Cervical back: Neck supple. Skin: General: Skin is warm and dry. Neurological: General: No focal deficit present. Mental Status: He is alert. Assessment and Plan ASSESSMENT/PLAN: 1. URI, acute - ICD9: 465.9, ICD10: J06.9 - Discussed viral etiology and rationale for treatment. - Symptomatic treatment with prn analgesia - Supportive care with fluids and rest If positive for COVID, patient is in the window for antiviral treatment and would be a good candidate. will follow-up with patient tomorrow and I will treat appropriately if positive. Patient agreeable with plan. - COVID & INFLUENZA A/B & RSV NAAT, ROUTINE - COVID NAAT, ROUTINE - ROUTINE FLU A/B + RSV Marni Gonzalez PA-C documented in this encounterSamaritan [facility]09-01-2023 Miscellaneous Notes* Telephone Encounter - Mellisa Herrera Ma - 05/19/2023 3:12 PM EDT Patient has been identified by name and date of : Yes Requested Prescriptions Pending Prescriptions Disp Refills fcseqyosdsa-ipknlkoqb-yazruwlx (TRELEGY ELLIPTA) 100-62.5-25 mcg inhalation powder 1 Each 11 RX INSTRUCTIONS: Patient aware RX will be sent to pharmacy. No need to notify patient. Will need 90 days supply. Confirmed [facility]. Mellisa Herrera Ma documented in this encounterSamaritan [facility] Center09-01-2023 Miscellaneous Notes* Telephone Encounter - Shey Liu LPN - 05/19/2023 8:43 AM EDT Pt to call and advise if he wants his Torsemide 20 mg tablet, Cialis tabs to come from [facility]. They also requested for pt Celebrex and records show pt is not longer on this. Received a call from [facility] but pt has been getting from local pharmacy. Need pt's approval and check to see if taking (1) tablet twice a day. If okay to send to send to [facility] will need to be a 90 day supply. [facility] will notify pt to call the office. Shey Liu LPN documented in this encounterSamaritan [facility] Health Center08-31-2023 History of Present illness Narrative* Yareli Soriano, ALICIA - 05/18/2023 10:18 AM EDT CDM Telephonic Outreach Provider Action/FYI Contacted for: Routine Telephonic Outreach Contact made with patient: Yes Patient identified by name and date of . Discussed care with patient Are you experiencing any new or worsening symptoms you need to talk about today? No Disease Specific Do you check your blood pressure at home? No Do you have new or worsening shortness of breath with activity? No Do you have new or worsening cough? No Do you have new or worsening wheezing? No Do you need to use your rescue (Albuterol) inhaler or nebulizer more often than normal? No Based on stitching machine feeder or offbearer, the following disposition is advised: No symptoms or symptoms present, not severe. Routed to: No Action Needed MACO Education Provided this Outreach: No Yareli Soriano RN May 18, 2023 10:19 AM documented in this encounterSamaritan [facility] Center08-15-2023 Miscellaneous Notes* Telephone Encounter - Hayde Mejia Ma - 05/02/2023 1:18 PM EDT Fax went through delivered, placed signed order into scanning Hayde Mejia Ma * Telephone Encounter - Ramu Alanis MA - 05/01/2023 5:07 PM EDT Faxed to [facility]. Ramu Alanis MA * Telephone Encounter - Oivdio Vincent MD - 05/01/2023 2:03 PM EDT Patient know he needs to be off the Eliquis for two days prior to his injection by Dr. Scherer. I want his to do Lovenox injections those two days. Nothing the day of the injection and restart the Eliquis the day after the injection. The following approved medication requests have been transmitted electronically. Requested Prescriptions Signed Prescriptions Disp Refills enoxaparin (LOVENOX) 40 mg/0.4 mL 2 Each 0 Sig: Inject 0.4 mL subcutaneously once daily. The two days prior to your injection by Dr. Scherer Authorizing Provider: OVIDIO VINCENT MD * Telephone Encounter - Slime Hernandez LPN - 05/01/2023 10:16 AM EDT Received fax from [facility] requesting order to stop Eliquis for 2 days prior to pt's procedure. Form on Dr Vincent's desk for review. Fax back to [phone]. Slime Hernandez LPN documented in this encounter[facility] History of Present illness Narrative* Slime Hernandez LPN - 05/02/2023 11:11 AM EDT Scan on 05/02/2023 10:18 AM by Provider, SPENCER Alejandra: Consultation - Cardiology documented in this encounterSam[facility]08-14-2023 Miscellaneous Notes* Telephone Encounter - Sangita Martinez LPN - 05/01/2023 8:46 AM EDT MCKENNA: 03/20/23 Patient phones requesting refills as follows: Requested Prescriptions Pending Prescriptions Disp Refills TRELEGY ELLIPTA 100-62.5-25 mcg inhalation powder [Pharmacy Med Name: TRELEGY ELLIPTA 100-62.5-25] Sig: inhale 1 puff by mouth and INTO THE LUNGS once daily Please review and advise. Sangita Martinez LPN documented in this encounterSam[facility]08-02-2023 History of Present illness Narrative* Marta Lui RN - 04/19/2023 11:34 AM EDT CDM Telephonic Outreach Provider Action/FYI Experiencing some dizziness upon standing at times since starting carvedilol 3.125 mg BID-ordered 04/05/23. No falls. Using rollator walker. 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 He will send My Chart message to PCP advising of above and reporting daily BP values. Average BP: 115-127/55-85. Denies palpitations. Contacted for: Routine Telephonic Outreach Contact made with patient: Yes Patient identified by name and date of . Discussed care with patient Are you experiencing any new or worsening symptoms you need to talk about today? No Disease Specific Do you check your blood pressure at home? Yes, Enter readings: 115-127/55-85 Do you have new or worsening shortness of breath with activity? No Do you have new or worsening cough? No Do you have new or worsening wheezing? No Do you need to use your rescue (Albuterol) inhaler or nebulizer more often than normal? No Based on stitching machine feeder or offbearer, the following disposition is advised: No symptoms or symptoms present, not severe. Routed to: No Action Needed MACO Education Provided this Outreach: No-declines Marta Lui RN April 19, 2023 11:48 AM documented in this encounterSam[facility]07-27-2023 Miscellaneous Notes* Telephone Encounter - Adonis Mcgovern Ma - 04/13/2023 11:27 AM EDT Spoke with patient and he has monitor from [facility]. We called [facility] and they will talk him through the procedure to remove it. Adonis Mcgovern Ma documented in this encounterSam[facility]07-20-2023 Miscellaneous Notes* Telephone Encounter - Ramu Alanis MA - 04/06/2023 1:52 PM EDT Sent my chart message on 04/05/2023=. Did contact patient to verify he received the message. Instructed patient to watch his BP. Check 1-2 times a day notify of any high or low BP's [facility] did contact patient and he is scheduled May 02. Ramu Alanis MA * Telephone Encounter - Ovidio Vincent MD - 04/05/2023 8:29 PM EDT Advise patient to continue the losartan for now. * Telephone Encounter - Ramu Alanis MA - 04/05/2023 6:20 PM EDT Patient notified and voiced understanding. Patient question should he stop his Losartan? Faxed over consult with info to [facility]. Ramu Alanis MA * Telephone Encounter - Ovidio Vincent MD - 04/05/2023 5:39 PM EDT Let patient know that I received a report on his halter monitor from day two of wearing it that shows Atrial Fib. He is on the correct dose of Eliquis at 5 mg twice a day. I have placed consult to see [facility] for this. I also sent in a medication to take twice a day to see if we can slow done the heart rate. This canlower BP so let me know if any issues. The following approved medication requests have been transmitted electronically. Requested Prescriptions Signed Prescriptions Disp Refills carvedilol (COREG) 3.125 mg tablet 180 tablet 1 Sig: Take 1 tablet by mouth twice daily. Authorizing Provider: OVIDIO VINCENT MD * Telephone Encounter - Ramu Alanis MA - 04/05/2023 3:33 PM EDT Received monitor technician results. Given to PCP for review. Ramu Alanis MA documented in this encounterSam[facility]07-17-2023 History of Present illness Narrative* Marta Lui RN - 04/03/2023 1:28 PM EDT Care Coordination Deferred Outreach Provider Action / FYI: OV with PCP 7/13/23. PCC outreach deferred 2 weeks. Deferred outreach to patient at this time due to: Visit with provider today-OV with PCP 03/30/23 Next Outreach date: 04/13/23 Marta Lui RN April 03, 2023 1:31 PM documented in this encounterSam[facility]07-16-2023 Miscellaneous Notes* Telephone Encounter - Heath Junior DO - 04/02/2023 10:19 AM EDT The following approved medication requests have been transmitted electronically. Requested Prescriptions Signed Prescriptions Disp Refills Magnesium Chloride (SLOW-MAG) 71.5 mg TbEC 120 tablet 3 Sig: Take 2 tablets by mouth twice daily. Authorizing Provider: HEATH JUNIOR DO * Telephone Encounter - Heath Junior DO - 04/02/2023 10:19 AM EDTMessage [facility] Refills have been requested for the following medications: SLOW-MAG 71.5 mg TbEC [Dr. Anand Alvarez] Preferred pharmacy: [id number] [place] [address] - [address] [facility] [phone] [id number] Delivery method: Pickup Medication renewals requested in this message routed separately: Tadalafil (CIALIS) 20 mg tab(s) [Dr. Chiki Vincent] documented in this encounterSam[facility]07-15-2023 Miscellaneous Notes* Telephone Encounter - Ovidio Vincent MD - 04/01/2023 11:30 AM EDT The following approved medication requests have been transmitted electronically. Requested Prescriptions Signed Prescriptions Disp Refills Tadalafil (CIALIS) 20 mg tab(s) 30 tablet 2 Sig: Take 1 tablet by mouth once daily. As needed Authorizing Provider: OVIDIO VINCENT MD * Telephone Encounter - Slime Hernandez LPN - 04/01/2023 8:20 AM EDT Last refill 11/03/22 Qty: 30 with 2 refills MCKENNA 03/30/23 NOV 10/10/23 Slime Hernandez LPN documented in this encounterSam[facility]07-14-2023 Miscellaneous Notes* Telephone Encounter - Leslye Winter PA-C - 03/31/2023 12:08 PM EDT The following approved medication requests have been transmitted electronically. Requested Prescriptions Signed Prescriptions Disp Refills dapagliflozin propanediol (FARXIGA) 10 mg tablet 90 tablet 1 Sig: Take 1 tablet by mouth once daily. Take one daily in the morning Authorizing Provider: LESLYE WINTER PA-C * Telephone Encounter - Conrad Dickens RN - 03/31/2023 11:56 AM EDT Pt returned call and given provider's message below with verbalized understanding. Pt agreeable to increasing Farxiga dose to 10mg. * Telephone Encounter - Slime Hernandez LPN - 03/31/2023 11:37 AM EDT Left message for pt to contact office. Slime Hernandez LPN * Telephone Encounter - Leslye Winter PA-C - 03/31/2023 11:17 AM EDT Let patient know that his a1c is up to 7.6%. we can increase farxiga to 10mg if patient is agreeable. Cholesterol overall stable. Trigs were high. Need to watch diet. Thanks. Leslye Winter PA-C documented in this encounterSam[facility]07-13-2023 History of Present illness Narrative* Leslye Winter PA-C - 03/30/2023 7:20 AM EDT Chief Complaint Patient presents with: 6 Month Exam HPI Ronnie Yarbrough is a 72 year old male who presents here today for Chronic Medical Conditions.. Patient with hx of HTN, hyperlipidemia, COPD, neuropathy, DM2, GERD, recent DVT, and those as below. Patient recently told had a. Fib during office visit with pulm. But ecg at hospital was normal. Patient had labs that were normal. And he has a event monitor that he needs help setting up. He denies any s/s of irregular heart beat. No palpitations, no lightheadedness. No dizziness. No increased shortness of breath. Doing well. Past medical history, appointments, medications, allergies reviewed. 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 Day: +12; Engrafted Protocol(s): 3422 1C Preparative regimen: melphalan Mobilization regimen: neupogen and plerixafor Stem cell source: apheresis CD34 cell dose (x10e6/kg): 5.14 Date of transplant: 06/15/2018 Bilateral leg edema 09/30/2022 Cancer of the skin, 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 --ppx ACV and cipro Inflammatory polyarthropathy ([facility]) Leg DVT (deep venous thromboembolism), acute, left ([facility]) 01/02/2018 --acute DVT gastrocnemius found 12/13/2017 --continue apixaban till platelets <50K, last dose 06/21/2018 Living will on file at physician's office 09/30/2022 DPA: BREN () Low serum vitamin B12 04/22/2021 Lumbar spinal stenosis Medicare annual wellness visit, subsequent 10/06/2021 Medicare part B: Not able to find, Last done: 10/06/2021 Mixed hyperlipidemia 10/31/2006 --will hold atorvastatin d/t interactions with chemotherapy can resume at discharge Multiple myeloma ([facility]) 11/28/2017 Multiple myeloma in remission ([facility]) Obesity, Class I, BMI 30-34.9 10/01/2012 Osteoarthritis of both hands Pancytopenia due to chemotherapy ([facility]) 06/25/2018 --Transfuse PRBC and platelets per protocol --GCSF Peripheral autonomic neuropathy in disorders classified elsewhere 06/07/2005 Pulmonary hypertension, unspecified ([facility]) 10/23/2019 Spinal stenosis, lumbar region, without neurogenic claudication 11/13/2006 Tobacco abuse 12/27/2011 Quit 2013 Type 2 diabetes mellitus without complication, without long-term current use of insulin ([facility]) 04/12/2018 Venous insufficiency, peripheral 01/06/2014 Vitamin D deficiency 12/31/2014 Previous Surgical History PAST SURGICAL HISTORY Procedure Laterality Date ANES ARTHROSCOPIC TOTAL SHOULDER REPLACEMENT Right 01/28/2013 [facility] - complete right shoulder replaceement ARTHRD ANT INTERBODY MIN DSC LUMBAR 2009 ARTHROTOMY W/MENISCUS REPAIR KNEE 1981 RIGHT ARTHROTOMY W/MENISCUS REPAIR KNEE 1982 LEFT ARTHRP KNE CONDYLE&PLATU MEDIAL&LAT COMPARTMENTS Right 2008 Knee replacement, total BACK SURGERY HX COLONOSCOPY FLX DX W/COLLJ SPEC WHEN PFRMD 09/25/2012 normal colonoscopy - 10 year follow up EGD TRANSORAL BIOPSY SINGLE/MULTIPLE 09/25/2012 mild distal esophagitis HAND BILATERAL OP SURGERY 2021 trigger finger/ cyst removal JOINT REPLACEMENT HX Right shoulder HARRIS W/O FACETEC FORAMOT/DSC 09/19 VRT SGM CRV 2007 Laminectomy, cervical PAST SURGICAL HISTORY OF Right 08/23/2021 carpal tunnel release with wrist arthrotomy and synovectomy PAST SURGICAL HISTORY OF Right 08/23/2021 ulnar nerve decompression PAST SURGICAL HISTORY OF 12/28/2022 bilateral revision lainectomy L1-L2, T11-T12 SKIN BIOPSY HX TONSILLECTOMY HX Family History FAMILY HISTORY Problem Relation Age of Onset None Mother Cancer Father PANCREAS Diabetes Father Diabetes Sister None Brother Diabetes Paternal Grandmother COPD No Family History Asthma No Family History Patient Allergies ALLERGIES Allergen Reactions Gabapentin Other: See Comments Depression/suicidal ideation Current Medications Current Outpatient Medications on File Prior to Visit Medication Sig torsemide (DEMADEX) 20 mg tablet Take 1.5 tablets by mouth twice daily. . metFORMIN (GLUCOPHAGE) 1,000 mg tablet Take 1 tablet by mouth twice daily with meals. dulaglutide (TRULICITY) 1.5 mg/0.5 mL pen injector Inject 1.5 mg subcutaneously one time a week. Inject once per week. Discard Pen After apixaban (ELIQUIS) 5 mg tab(s) Take 1 tablet by mouth twice daily. Tadalafil (CIALIS) 20 mg tab(s) Take 1 tablet by mouth once daily. As needed vwkclzqbblz-yqjxnjhuj-apufhkkl (TRELEGY ELLIPTA) 100-62.5-25 mcg inhalation powder Inhale 1 Puff asinstructed once daily. SLOW-MAG 71.5 mg TbEC take 2 tablets by mouth twice a day aspirin, enteric coated (ASPIRIN, ENTERIC COATED) 81 mg EC tablet Take 1 tablet by mouth once daily. Cholecalciferol, Vitamin D3, (VITAMIN D-3) 50 mcg (2,000 unit) cap Take 1 capsule by mouth once daily. terbinafine HCl (LAMISIL) 250 mg tablet Take 1 tablet by mouth once daily. cyanocobalamin (VITAMIN B-12) 1,000 mcg tab Take 1 tablet by mouth once daily. Calcium-Cholecalciferol, D3, 600 mg-5 mcg (200 unit) cap Take 1 capsule by mouth once daily. Current Facility-Administered Medications on File Prior to Visit Medication perflutren lipid microspheres 1.3 mL in NaCl (PF) 0.9% 10 mL injection (DEFINITY) sodium chloride 0.9 % (flush) 10 mL (BD POSIFLUSH) Social History Social History Tobacco Use Smoking status: Former Packs/day: 1.00 Years: 41.00 Total pack years: 41.00 Types: Pipe, Cigarettes Start date: 1971 Quit date: 12/09/2011 Years since quittin.3 Smokeless tobacco: Never Tobacco comments: 1/4 pack of cigs; pipe smoker. None of either since cessation. No ETS in childhood home. Smoked up to one ppd Vaping Use Vaping Use: Never used Substance Use Topics Alcohol use: Yes Comment: rare Drug use: No Review of Symptoms REVIEW OF SYSTEMS GENERAL: No weight loss, malaise or fevers NECK: Negative for lumps, goiter, pain and significant neck swelling RESPIRATORY: Negative for cough, hemoptysis, wheezing, COPD, dyspnea or shortness of breath CARDIOVASCULAR: Negative for chest pain, leg swelling, hypertension, CHF or palpitations NEURO: No history of headaches, syncope, paralysis, seizures or tremors EXAM: BP 116/80 (BP Site: Left Arm, BP Position: Sitting, BP Cuff Size: Large Adult) Pulse 80 Temp 36.5 C (97.7 F) Resp 18 Wt 101.6 kg (224 lb) BMI 33.08 kg/m General Appearance: Well appearing, alert, in no acute distress, well-hydrated, well nourished.. Neck: Supple, no adenopathy; thyroid symmetric, normal size, no bruits. Lungs: Lungs clear to auscultation. No wheezing, rhonchi, rales.. Heart: RRR without murmur, gallop, or rubs. No ectopy. Extremities: No deformities, edema, skin discoloration, clubbing or cyanosis. Good capillary refill. . Peripheral Pulses: Normal. Health Maintenance List DILATED RETINAL EXAM due on 09/09/2022 BP CONTROLLED (<130/80) due on 10/06/2022 HBA1C due on 04/11/2023 INFLUENZA(1) due on 05/19/2023 LUNG CANCER SCREENING due on 08/30/2023 DIABETIC FOOT EXAM due on 09/30/2023 URINE ALBUMIN:CREATININE RATIO due on 10/12/2023 LDL CHOLESTEROL due on 10/12/2023 COLORECTAL CANCER SCREENING due on 10/12/2023 ANNUAL PCP TEAM CHRONIC DISEASE VISIT due on 02/25/2024 DTAP,TDAP,TD(6 - Td or Tdap) due on 09/23/2029 SPIROMETRY Completed ABDOMINAL AORTIC ANEURYSM SCREENING Completed ADVANCE DIRECTIVE DISCUSSION Completed DEPRESSION ASSESSMENT Completed SHINGRIX VACCINE Completed COVID-19 VACCINE Completed PNEUMOCOCCAL: 65+ Completed HPV VACCINE Aged Out ALPHA-1 ANTITRYPSIN DEFICIENCY SCREENING Discontinued HEPATITIS C SCREENING Discontinued Data reviewed ASSESSMENT/PLAN: 1. Type 2 diabetes mellitus without complication, without long-term current use of insulin (HCC) - ICD9: 250.00, ICD10: E11.9 (primary diagnosis) - Control undetermined, due for labs - Continue current medications - Counseled on healthy diet and regular exercise - HGB A1C 2. Mixed hyperlipidemia - ICD9: 272.2, ICD10: E78.2 - Control undetermined, due for labs - Continue current medications - Counseled on healthy diet and regular exercise - LIPID PANEL, NONFASTING 3. Atrial fibrillation, unspecified type (HCC) - ICD9: 427.31, ICD10: I48.91 Nursing to help patient set up event monitor that he brought today 4. Multiple myeloma in remission (HCC) - ICD9: 203.01, ICD10: C90.01 Cont with specialist 5. Multiple myeloma, remission status unspecified (HCC) - ICD9: 203.00, ICD10: C90.00 As abvoe. 6. Essential hypertension - ICD9: 401.9, ICD10: I10 - Controlled - Continue current medications but okay to decrease demadex back to just 20mg BID. - Recommend home blood pressure monitoring, to bring results to next visit - Encouraged sodium restriction, DASH or Mediterranean diet - Recommend regular aerobic exercise 7. Pulmonary hypertension, unspecified (HCC) - ICD9: 416.8, ICD10: I27.20 stable 8. Chronic obstructive pulmonary disease, unspecified COPD type (HCC) - ICD9: 496, ICD10: J44.9 stable 9. Acute thromboembolism of deep veins of both lower extremities (HCC) - ICD9: 453.40, ICD10: I82.403 Cont sapna Winter PA-C documented in this encounterSam[facility]07-13-2023 Instructions* Patient Instructions* Leslye Winter PA-C - 03/30/2023 7:19 AM EDT Please set up diabetic eye exam. documented in this encounterSam[facility]07-07-2023 Miscellaneous Notes* Telephone Encounter - Hayde Mejia Ma - 03/24/2023 2:39 PM EDT Patient was notified Hayde Mejia Ma * Telephone Encounter - Ovidio Vincent MD - 03/24/2023 2:32 PM EDT Let patient know electrolyte panel, CBC and thyroid labs were all normal. documented in this encounterSam[facility]07-06-2023 History of Present illness Narrative* Slime Hernandez LPN - 03/23/2023 7:12 AM EDT Scan on 03/22/2023 11:04 PM by External Provider, SPENCER: Consultation - Emergency Medicine documented in this encounterSam[facility]07-05-2023 Miscellaneous Notes* Telephone Encounter - Ramu Alanis MA - 03/22/2023 4:13 PM EDT Spoke with patient and gave him results and instructions. Patient asked if he could just see a enrober mynor. Provider wanted him to go to the ER. Patient first said he would go tomorrow. Expressed to patient that this could be life threatening issue. He said he would go later today to [facility]. Faxed information to the [facility] ER. Ramu Alanis MA * Telephone Encounter - Ovidio Vincent MD - 03/22/2023 3:59 PM EDT Let patient know the nurse who did his EKG today brought it by my office and it shows he has new onset atrial fibulation. This can be a life threatening arhythmia with increased risk for blood clots.Though he is already of a blood thinner it may need adjusted. I also do not know why he is is a. Fib. I need him to go to a local ER to be further evaluated. Please find out what ER he will be going to so you can contact and updated them on patient being sent in. Also fax them his Snap shot and copy of the EKG. documented in this encounterSam[facility]07-05-2023 History of Present illness Narrative* Pao Lewis LPN - 03/22/2023 2:39 PM EDT Patient presents for EKG per Loretta Leon PA-C. Denies any problems at this time. Tolerated procedure well. Pao Lewis LPN documented in this encounterSamaritan [facility]07-03-2023 Miscellaneous Notes* Addendum Note - Loretta Leon PA-C - 03/20/2023 2:03 PM EDTAddended by: LORETTA LEON on: 03/20/2023 02:03 PM Modules accepted: Orders documented in this encounterSamaritan [facility]07-03-2023 History of Present illness Narrative* Loretta Leon PA-C - 03/20/2023 10:30 AM EDT Images from the original note were not included. Patient: Ronnie Yarbrough PCP: Ovidio Vincent MD CC: COPD HPI: Ronnie Yarbrough 72 year old male former 40 pack year smoker, quitting 2011 with PMH significant for MM s/p BMT, COPD/CB, HTN, HLD, diastolic heart failure, inflammatory polyarthropathy, lower extremity DVT (r popliteal and l gastrocnemius) on Eliquis for 6 months, and pulmonary nodules. Most recent LDCT for lung cancer screening 08/2022 showed a new lung nodule in left lung 4-6 mm and 2-3 mm in RUL. Current therapy consists of Trelegy with as needed Albuterol. Today, patient reports that he did not have CT chest done as scheduled in February secondary to out of pocket cost. He had back surgery in December and he reports that he is not able to pay for additional medical expenses at this time. Denies significant cough or sputum production. Occasional wheezes. No SOB. Ambulating with walker after having back surgery in December. Exercising at [facility] daily. No fevers, chills, or night sweats. No lower extremity edema. 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 Day: +12; Engrafted Protocol(s): 3422 1C Preparative regimen: melphalan Mobilization regimen: neupogen and plerixafor Stem cell source: apheresis CD34 cell dose (x10e6/kg): 5.14 Date of transplant: 06/15/2018 Bilateral leg edema 09/30/2022 Cancer of the skin, 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 --ppx ACV and cipro Inflammatory polyarthropathy ([facility]) Leg DVT (deep venous thromboembolism), acute, left ([facility]) 01/02/2018 --acute DVT gastrocnemius found 12/13/2017 --continue apixaban till platelets <50K, last dose 06/21/2018 Living will on file at physician's office 09/30/2022 DPA: BREN () Low serum vitamin B12 04/22/2021 Lumbar spinal stenosis Medicare annual wellness visit, subsequent 10/06/2021 Medicare part B: Not able to find, Last done: 10/06/2021 Mixed hyperlipidemia 10/31/2006 --will hold atorvastatin d/t interactions with chemotherapy can resume at discharge Multiple myeloma ([facility]) 11/28/2017 Multiple myeloma in remission ([facility]) Obesity, Class I, BMI 30-34.9 10/01/2012 Osteoarthritis of both hands Pancytopenia due to chemotherapy ([facility]) 06/25/2018 --Transfuse PRBC and platelets per protocol --GCSF Peripheral autonomic neuropathy in disorders classified elsewhere 06/07/2005 Pulmonary hypertension, unspecified ([facility]) 10/23/2019 Spinal stenosis, lumbar region, without neurogenic claudication 11/13/2006 Tobacco abuse 12/27/2011 Quit 2012 Type 2 diabetes mellitus without complication, without long-term current use of insulin ([facility]) 04/12/2018 Venous insufficiency, peripheral 01/06/2014 Vitamin D deficiency 12/31/2014 Allergies: Gabapentin Other: See Comments Comment:Depression/suicidal ideation torsemide (DEMADEX) 20 mg tablet^Take 1.5 tablets by mouth twice daily. .^Disp: 90 tablet^Rfl: 1 metFORMIN (GLUCOPHAGE) 1,000 mg tablet^Take 1 tablet by mouth twice daily with meals.^Disp: 60 tablet^Rfl: 5 dulaglutide (TRULICITY) 1.5 mg/0.5 mL pen injector^Inject 1.5 mg subcutaneously one time a week. Inject once per week. Discard Pen After^Disp: 4 Each^Rfl: 5 apixaban (ELIQUIS) 5 mg tab(s)^Take 1 tablet by mouth twice daily.^Disp: 60 tablet^Rfl: 4 omeprazole (PRILOSEC) 40 mg capsule^TAKE ONE CAPSULE BY MOUTH ONCE DAILY ON AN EMPTY STOMACH^Disp: 90 capsule^Rfl: 1 celecoxib (CELEBREX) 200 mg capsule^Take 1 capsule by mouth twice daily.^Disp: 60 capsule^Rfl: 5 losartan (COZAAR) 25 mg tablet^Take 1 tablet by mouth once daily.^Disp: 90 tablet^Rfl: 1 Tadalafil (CIALIS) 20 mg tab(s)^Take 1 tablet by mouth once daily. As needed^Disp: 30 tablet^Rfl: 2 dapagliflozin (FARXIGA) 5 mg tablet^Take 1 tablet by mouth once daily. Take one daily in the morning^Disp: 30 tablet^Rfl: 5 atorvastatin (LIPITOR) 40 mg tablet^Take 1 tablet by mouth once daily.^Disp: 90 tablet^Rfl: 1 pdtrsuegqrm-qzqziuagy-uyekwdjy (TRELEGY ELLIPTA) 100-62.5-25 mcg inhalation powder^Inhale 1 Puff asinstructed once daily.^Disp: 1 Each^Rfl: 5 SLOW-MAG 71.5 mg TbEC^take 2 tablets by mouth twice a day^Disp: 120 tablet^Rfl: 3 aspirin, enteric coated (ASPIRIN, ENTERIC COATED) 81 mg EC tablet^Take 1 tablet by mouth once daily.^Disp: 100 tablet^Rfl: 3 Cholecalciferol, Vitamin D3, (VITAMIN D-3) 50 mcg (2,000 unit) cap^Take 1 capsule by mouth once daily.^Disp: 90 capsule^Rfl: 3 terbinafine HCl (LAMISIL) 250 mg tablet^Take 1 tablet by mouth once daily.^Disp: 30 tablet^Rfl: 2 cyanocobalamin (VITAMIN B-12) 1,000 mcg tab^Take 1 tablet by mouth once daily.^Disp: ^Rfl: Calcium-Cholecalciferol, D3, 600 mg-5 mcg (200 unit) cap^Take 1 capsule by mouth once daily.^Disp: ^Rfl: Social History Tobacco Use Smoking status: Former Packs/day: 1.00 Years: 41.00 Pack years: 41.00 Types: Pipe, Cigarettes Start date: 1971 Quit date: 12/09/2011 Years since quittin.2 Smokeless tobacco: Never Tobacco comments: 1/4 pack of cigs; pipe smoker. None of either since cessation. No ETS in childhood home. Smoked up to one ppd Vaping Use Vaping Use: Never used Substance Use Topics Alcohol use: Yes Comment: rare Drug use: No Family History Problem Relation Age of Onset None Mother Cancer Father PANCREAS Diabetes Father Diabetes Sister None Brother Diabetes Paternal Grandmother COPD No Family History Asthma No Family History PAST SURGICAL HISTORY Procedure Laterality Date ANES ARTHROSCOPIC TOTAL SHOULDER REPLACEMENT Right 01/28/2013 [facility] - complete right shoulder replaceement ARTHRD ANT INTERBODY MIN DSC LUMBAR 2009 ARTHROTOMY W/MENISCUS REPAIR KNEE 1981 RIGHT ARTHROTOMY W/MENISCUS REPAIR KNEE 1982 LEFT ARTHRP KNE CONDYLE&PLATU MEDIAL&LAT COMPARTMENTS Right 2007 Knee replacement, total BACK SURGERY HX COLONOSCOPY FLX DX W/COLLJ SPEC WHEN PFRMD 09/25/2012 normal colonoscopy - 10 year follow up EGD TRANSORAL BIOPSY SINGLE/MULTIPLE 09/25/2012 mild distal esophagitis HAND BILATERAL OP SURGERY 2021 trigger finger/ cyst removal JOINT REPLACEMENT HX Right shoulder HARRIS W/O FACETEC FORAMOT/DSC 09/19 VRT SGM CRV 2008 Laminectomy, cervical PAST SURGICAL HISTORY OF Right 08/23/2021 carpal tunnel release with wrist arthrotomy and synovectomy PAST SURGICAL HISTORY OF Right 08/23/2021 ulnar nerve decompression PAST SURGICAL HISTORY OF 12/28/2022 bilateral revision lainectomy L1-L2, T11-T12 SKIN BIOPSY HX TONSILLECTOMY HX I reviewed the past medical history, family history, social history and surgical history with changes noted above and updated in EMR. IMMUNIZATIONS Prevnar 13 - 09/23/2019, 07/23/2019, 07/30/2018, 07/07/2016 Pneumovax 23 - 03/15/2021 Influenza - 06/14/2022 COVID-19 - 07/04/2022, 12/27/2021, 07/21/2021, 01/07/2021, 12/10/2020 ROS: CONSTITUTIONAL: No fevers, chills, nightsweats, unintended weight loss HEENT: Denies post nasal drip or sinus congestion. CARDIOVASCULAR: No chest pain, dyspnea, palpitations, orthopnea, PND. Chronic edema improved with Torsemide. PULM: See HPI. GI: No dysphagia/odynophagia, problematic reflux MUSC-SKEL: Recent back surgery. Recent DVT diagnosis. INTEGUMENTARY: No new skin changes or rashes PHYSICAL EXAMINATION: BP (P) 142/78 Pulse (P) 77 Resp (P) 14 SpO2 (P) 99% Gen: No acute distress. Cooperative with examination. HEENT: Normocephalic. Sclera, conjunctiva clear. Oral hygeine and dentition good. No thrush. Resp: No stridor, accessory respiratory muscle use, supra-sternal or intercostal retractions. No wheezes, crackles. CV: Irregular rythm. Heart tones normal. Radial pulses normal. Abd: Non distended. MSK: No kyphoscoliosis. Ext: Warm and well perfused. No clubbing, cyanosis. Trace bilateral edema. Skin: No rash, ecchymoses. Neuro: Mental status normal. Affect normal. No tremor. DATA: PFT, 08/08/2022 IMPRESSION: Spirometry indicates mild obstruction. Electronically Signed On 08-08-2022 14:16:39 EST by Hayde Ward M.D. LDCT chest, 08/2022 [facility] ASSESSMENT/PLAN: 1. 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HCC) - ICD9: 491.20, ICD10: J44.9 (primary diagnosis) Symptomatically doing well on Trelegy Ellipta. Continue abstinence from smoking. No need for suppressive azithromycin at this time. 2. Irregular heart beat - ICD9: 427.9, ICD10: I49.9 Patient with irregular heart beat on physical exam. Will obtain an EKG. - ECG B/O W INTERP (MED OFFICE) 3. Lung nodules - ICD9: 793.19, ICD10: R91.8 New nodule noted on most recent LDCT. Patient was scheduled for a follow up CT chest in February 2023. However, he cancelled it secondary to the amount of [id number]-[id number] expense. Will reach out to Desi De Anda, social service assistant, to see if there is any financial assistance available. 4. Former cigarette smoker - ICD9: V15.82, ICD10: Z87.891 Former 97-uyjk-tnxa smoker having quit in 2012 with sequelae of COPD. See #3. Portions of this documentation were copied and pasted from previous office visit notes in order to provide a cohesive continuity of the history. The note has been reviewed and edited and updated as necessary. Loretta Leon PA-C documented in this encounterSam[facility]06-19-2023 Miscellaneous Notes* Telephone Encounter - Ovidio Vincent MD - 03/06/2023 10:00 PM EDT The following approved medication requests have been transmitted electronically. Requested Prescriptions Signed Prescriptions Disp Refills torsemide (DEMADEX) 20 mg tablet 90 tablet 1 Sig: Take 1.5 tablets by mouth twice daily. . Authorizing Provider: OVIDIO VINCENT MD * Telephone Encounter - Arlet Clemens LPN - 03/06/2023 12:12 PM EDT Madi with [facility] calls to verify directions on torsemide 20 mg -1.5 tab twice daily. Madi is asking for a new rx with quantity updated. Review quantity - updated to #90. Patient has been identified by name and date of : Yes Requested Prescriptions Pending Prescriptions Disp Refills torsemide (DEMADEX) 20 mg tablet 90 tablet 1 Sig: Take 1.5 tablets by mouth twice daily. . RX INSTRUCTIONS: Pharmacy initiated this request. No need to notify patient. Arlet Clemens LPN documented in this encounterSamaritan [facility] Center06-07-2023 History of Present illness Narrative* Ramu Alanis MA - 02/22/2023 5:55 PM EDT Scan on 02/17/2023 10:27 PM by External Provider, SPENCER: Consultation - Emergency Medicine Ramu Alanis MA documented in this encounterSamaritan [facility]06-02-2023 History of Present illness Narrative* Ovidio Vincent MD - 02/17/2023 8:40 AM EDT Chief Complaint Patient presents with: Edema HPI Ronnie Yarbrough is a 72 year old male who presents here today for leg swelling. Office visit - follow up - continued edema. Patient having continued swelling in both legs. Patient was seen in [facility] ER 02/10/2023 for bilateral leg swelling after contacting the office and being advise to go to the ER due to Hx of low back surgery in December and concern for DVT's. Patient denied any legs pains, shortness of breath or chest pain at that time. Labs completed included CBC, BMP that were normal. BNP was slightly elevated. Cardiac marker was normal. Chest x-ray was within normal limits. Dopplers were not completed. Patient was given 40 of Demadex in the ER and increased to 40mg a day for 3 more days. He completed the 40 mg of demadex on Monday. Did not really see any improvement . He has not had any shortness of breath. Denies orthopnea or paroxysmal nocturnal dyspnea. No chest pain. No discoloration in his legs. notes that he will get swelling into the upper thighs and sometimes onto the stomach. Office visit - 4 week follow up leg edema 12/16/2022 Patient with hx of DM2, HTN, HLP, COPD, pulm HTN, GERD, multiple myeloma in remission, neuropathy, former smoker, polyarthropathy and those as reviewed/updated below. Patient is having some swelling in his legs but improved with the medication changes at last visit. He has been getting weaker in his legs and walking with a hernandez. He as an appt with Dr. Enrique Sueat [facility] in January. Past medical history, appointments, medications, allergies reviewed. 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 --ppx ACV and cipro Inflammatory polyarthropathy ([facility]) Leg DVT (deep venous thromboembolism), acute, left ([facility]) 01/02/2018 --acute DVT gastrocnemius found 12/13/2017 --continue apixaban till platelets <50K, last dose 06/21/2018 Living will on file at physician's office 09/30/2022 DPA: BREN () Low serum vitamin B12 04/22/2021 Lumbar spinal stenosis Medicare annual wellness visit, subsequent 10/06/2021 Medicare part B: Not able to find, Last done: 10/06/2021 Mixed hyperlipidemia 10/31/2006 --will hold atorvastatin d/t interactions with chemotherapy can resume at discharge Multiple myeloma ([facility]) 11/28/2017 Multiple myeloma in remission ([facility]) Obesity, Class I, BMI 30-34.9 10/01/2012 Osteoarthritis of both hands Pancytopenia due to chemotherapy ([facility]) 06/25/2018 --Transfuse PRBC and platelets per protocol --GCSF Peripheral autonomic neuropathy in disorders classified elsewhere 06/07/2005 Pulmonary hypertension, unspecified ([facility]) 10/23/2019 Spinal stenosis, lumbar region, without neurogenic claudication 11/13/2006 Tobacco abuse 12/27/2011 Quit 2012 Type 2 diabetes mellitus without complication, without long-term current use of insulin ([facility]) 04/12/2018 Venous insufficiency, peripheral 01/06/2014 Vitamin D deficiency 12/31/2014 Previous Surgical History PAST SURGICAL HISTORY Procedure Laterality Date ANES ARTHROSCOPIC TOTAL SHOULDER REPLACEMENT Right 01/28/2013 [facility] - complete right shoulder replaceement ARTHRD ANT INTERBODY MIN DSC LUMBAR 2009 ARTHROTOMY W/MENISCUS REPAIR KNEE 1981 RIGHT ARTHROTOMY W/MENISCUS REPAIR KNEE 1982 LEFT ARTHRP KNE CONDYLE&PLATU MEDIAL&LAT COMPARTMENTS Right 2007 Knee replacement, total BACK SURGERY HX COLONOSCOPY FLX DX W/COLLJ SPEC WHEN PFRMD 09/25/2012 normal colonoscopy - 10 year follow up EGD TRANSORAL BIOPSY SINGLE/MULTIPLE 09/25/2012 mild distal esophagitis HAND BILATERAL OP SURGERY 2021 trigger finger/ cyst removal JOINT REPLACEMENT HX Right shoulder HARRIS W/O FACETEC FORAMOT/DSC 09/19 VRT SGM CRV 2007 Laminectomy, cervical PAST SURGICAL HISTORY OF Right 08/23/2021 carpal tunnel release with wrist arthrotomy and synovectomy PAST SURGICAL HISTORY OF Right 08/23/2021 ulnar nerve decompression PAST SURGICAL HISTORY OF 12/28/2022 bilateral revision lainectomy L1-L2, T11-T12 SKIN BIOPSY HX TONSILLECTOMY HX Family History FAMILY HISTORY Problem Relation Age of Onset None Mother Cancer Father PANCREAS Diabetes Father Diabetes Sister None Brother Diabetes Paternal Grandmother COPD No Family History Asthma No Family History Patient Allergies ALLERGIES Allergen Reactions Gabapentin Other: See Comments Depression/suicidal ideation Current Medications Current Outpatient Medications on File Prior to Visit Medication Sig omeprazole (PRILOSEC) 40 mg capsule TAKE ONE CAPSULE BY MOUTH ONCE DAILY ON AN EMPTY STOMACH dulaglutide (TRULICITY) 1.5 mg/0.5 mL pen injector Inject 1.5 mg subcutaneously one time a week. Inject once per week. Discard Pen After celecoxib (CELEBREX) 200 mg capsule Take 1 capsule by mouth twice daily. WALKER ROLLATOR SEAT WITH 6 WHEELS - RED Dx: M48.061, R29.898, R53.1 and Z91.81 losartan (COZAAR) 25 mg tablet Take 1 tablet by mouth once daily. Tadalafil (CIALIS) 20 mg tab(s) Take 1 tablet by mouth once daily. As needed dapagliflozin (FARXIGA) 5 mg tablet Take 1 tablet by mouth once daily. Take one daily in the morning torsemide (DEMADEX) 10 mg tablet Take 1 tablet by mouth twice daily. Take with one 5 mg twice a dayfor total of 15 mg twice a day. torsemide (DEMADEX) 5 mg tablet Take 1 tablet by mouth once daily. Take with one 10 mg twice a day for total of 15 mg twice a day. (Patient taking differently: Take 5 mg by mouth once daily. Take 5 mg twice daily) metFORMIN (GLUCOPHAGE) 1,000 mg tablet Take 1 tablet by mouth twice daily with meals. atorvastatin (LIPITOR) 40 mg tablet Take 1 tablet by mouth once daily. dshyiatxnwu-gwhjqzhae-hpvhhtes (TRELEGY ELLIPTA) 100-62.5-25 mcg inhalation powder Inhale 1 Puff asinstructed once daily. SLOW-MAG 71.5 mg TbEC take 2 tablets by mouth twice a day aspirin, enteric coated (ASPIRIN, ENTERIC COATED) 81 mg EC tablet Take 1 tablet by mouth once daily. Cholecalciferol, Vitamin D3, (VITAMIN D-3) 50 mcg (2,000 unit) cap Take 1 capsule by mouth once daily. terbinafine HCl (LAMISIL) 250 mg tablet Take 1 tablet by mouth once daily. cyanocobalamin (VITAMIN B-12) 1,000 mcg tab Take 1 tablet by mouth once daily. Calcium-Cholecalciferol, D3, 600 mg-5 mcg (200 unit) cap Take 1 capsule by mouth once daily. Current Facility-Administered Medications on File Prior to Visit Medication perflutren lipid microspheres 1.3 mL in NaCl (PF) 0.9% 10 mL injection (DEFINITY) sodium chloride 0.9 % (flush) 10 mL (BD POSIFLUSH) Social History Social History Tobacco Use Smoking status: Former Packs/day: 1.00 Years: 41.00 Pack years: 41.00 Types: Pipe, Cigarettes Start date: 1971 Quit date: 12/09/2011 Years since quittin.2 Smokeless tobacco: Never Tobacco comments: 1/4 pack of cigs; pipe smoker. None of either since cessation. No ETS in childhood home. Smoked up to one ppd Vaping Use Vaping Use: Never used Substance Use Topics Alcohol use: Yes Comment: rare Drug use: No Review of Symptoms REVIEW OF SYSTEMS See HPI EXAM: BP 144/94 (BP Site: Right Arm, BP Position: Sitting, BP Cuff Size: Regular Adult) Pulse 80 Resp18 Wt 104.3 kg (230 lb) BMI 33.97 kg/m General Appearance: Well appearing, alert, in no acute distress, well-hydrated, well nourished.. Lungs: Lungs clear to auscultation. No wheezing, rhonchi, rales.. Heart: RRR without murmur, gallop, or rubs. No ectopy. Extremities: No deformities, skin discoloration, Good capillary refill. 2+ pitting edema to above the knees. . Health Maintenance List DILATED RETINAL EXAM due on 09/09/2022 COLORECTAL CANCER SCREENING due on 10/13/2022 HBA1C due on 04/11/2023 LUNG CANCER SCREENING due on 08/30/2023 DIABETIC FOOT EXAM due on 09/30/2023 URINE ALBUMIN:CREATININE RATIO due on 10/12/2023 LDL CHOLESTEROL due on 10/12/2023 ANNUAL PCP TEAM CHRONIC DISEASE VISIT due on 12/17/2023 BP CONTROLLED (<130/80) due on 12/17/2023 DTAP,TDAP,TD(6 - Td or Tdap) due on 09/23/2029 SPIROMETRY Completed ABDOMINAL AORTIC ANEURYSM SCREENING Completed INFLUENZA Completed ADVANCE DIRECTIVE DISCUSSION Completed DEPRESSION ASSESSMENT Completed SHINGRIX VACCINE Completed COVID-19 VACCINE Completed PNEUMOCOCCAL: 65+ Completed ALPHA-1 ANTITRYPSIN DEFICIENCY SCREENING Discontinued HEPATITIS C SCREENING Discontinued Data reviewed A/P ASSESSMENT/PLAN: 1. Bilateral leg edema - ICD9: 782.3, ICD10: R60.0 Check - US LEG VEIN DVT [facility] - check BNP and MP Increase demadex to 30 mg twice a day. Requested Prescriptions Signed Prescriptions Disp Refills torsemide (DEMADEX) 20 mg tablet 45 tablet 1 Sig: Take 1.5 tablets by mouth twice daily. Take with one 5 mg twice a day for total of 15 mg twicea day. F/u in a week Ovidio Vincent MD Addendum: patient's leg US came back positive for bilateral DVT's. Pr was sent to ER. At ER ER he was started on Eliquis and was able to be sent home. documented in this encounterSam[facility]05-30-2023 History of Present illness Narrative* Hayde Mejia Ma - 02/14/2023 10:42 AM EDT Scan on 02/10/2023 4:14 PM by External Provider, SPENCER: Consultation - Emergency Medicine Scan on 02/10/2023 9:39 AM by External Provider, SPENCER: X-ray documented in this encounterSamaritan [facility] Center05-10-2023 History of Present illness Narrative* Rebecca Cruz Pss - 01/25/2023 2:37 PM EDT POPULATION HEALTH NAVIGATION OUTREACH Action/I 01/25/23 Patient returned my call from earlier, he declined scheduling colonoscopy. Stated he 'is fine' and does not feel it is something he needs to schedule at this time. Patient Identified by Name and : YES, via phone Outreach Outcome/Action Spoke to patient / parent / legal guardian: Patient declined Did you use a PCP flex slot to schedule this appointment? N/A Reason for Outreach Care Gap or Scheduling/Wellness visits Payer: Payor: AET MEDICARE / Plan: [employer] MEDICARE PPO / Product Type: PPO / Care Gap Reviewed:: Colorectal Cancer Screening Reminder: Reminder note to check Health Maintenance for items below Health Maintenance items due: DILATED RETINAL EXAM due on 09/09/2022 COLORECTAL CANCER SCREENING due on 10/13/2022 Navigation Signature: Rebecca Cruz Population Health Navigator January 25, 2023 2:37 PM * Rebecca Cruz Pss - 01/25/2023 8:44 AM EDT POPULATION HEALTH NAVIGATION OUTREACH Action/01/25/23 Discuss/due [employer] Care Gaps: ~Colorectal Cancer Screening Outcome: ~Left message on voice mail and sent [employer] message. Patient Identified by Name and : NO Outreach Outcome/Action Unable to reach patient: Left message MyChart message sent Did you use a PCP flex slot to schedule this appointment? N/A Reason for Outreach Care Gap or Scheduling/Wellness visits Payer: Payor: [employer] MEDICARE / Plan: [employer] MEDICARE PPO / Product Type: PPO / Care Gap Reviewed:: Colorectal Cancer Screening Reminder: Reminder note to check Health Maintenance for items below Health Maintenance items due: DILATED RETINAL EXAM due on 09/09/2022 COLORECTAL CANCER SCREENING due on 10/13/2022 Navigation Signature: Rebecca Cruz Population Health Navigator January 25, 2023 8:44 AM documented in this encounterSam[facility]itan [facility]05-03-2023 History of Present illness Narrative* Mara Guardado RN - 01/18/2023 10:18 AM EDT CDM Telephonic Outreach Provider Action/FYI Pt not available. Pt's , Bren, confirms that she is involved in patient's care. Bren states patient is not having any new or increased CDM symptoms. Bren states patient is doing very well. States patient was at [facility] after sustaining a cracked vertebrae in June. Pt is now walking again and is going to be having PT. Pt's denies any needs, questions, concerns at this time. END OUTREACH Contacted for: Routine Telephonic Outreach Contact made with patient: Yes Patient identified by name and date of . Discussed care with spouse Are you experiencing any new or worsening symptoms you need to talk about today? No Disease Specific Do you check your blood pressure at home? No Do you have new or worsening shortness of breath with activity? No Do you have new or worsening cough? No Do you have new or worsening wheezing? No Do you need to use your rescue (Albuterol) inhaler or nebulizer more often than normal? No Based on stitching machine feeder or offbearer, the following disposition is advised: Symptoms present, not severe. Routed to: No Action Needed MACO Education Provided this Outreach: No Mara Guardado RN January 18, 2023 10:26 AM * Mara Guardado RN - 01/17/2023 3:28 PM EDT CDM Telephonic Outreach Provider Action/FYI Made call #1 to pt. NA/Left vm. Contacted for: Routine Telephonic Outreach Contact made with patient: No, left message. Mara Guardado RN January 17, 2023 3:29 PM documented in this encounterSamaritan [facility]05-01-2023 Miscellaneous Notes* Telephone Encounter - Jeanine Dunne, RN - 01/16/2023 3:10 PM EDT Patient returned call. He says everything is going well after surgery and he has a follow up @ [facility] tomorrow. Cancelled Monday's appointment. Jeanine Dunne, RN * Telephone Encounter - Slime Hernandez LPN - 01/16/2023 3:04 PM EDT Pt is scheduled for hospital f/u 01/20/[address] Vincent pt does not need this appointment unless pt was referred by his surgeon for a specific problem such as elevated bp. Left message ofsame for pt. Asked pt to call back and speak to Triage Nurse and cancel appointment or let them know there is a specific reason for appointment. Slime Hernandez LPN documented in this encounterSamaritan [facility]05-01-2023 History of Present illness Narrative* Slime Hernandez LPN - 01/16/2023 2:39 PM EDT TRANSITION CARE MANAGEMENT (TCM) INITIAL CONTACT Provider Action/FYI: none Initial contact with patient post discharge, spoke to patient. Patient identified by name and . TRANSITION CARE MANAGEMENT: No flowsheet data found. SUMMARY: -Pt discharged from [facility] and [facility] rehab on 01/14/23. -Follow up appointment on 01/20/23 with Leslye Winter. -Medication review done yes. -Admitted for: microdisectomy CONCERNS: None verbalized NEW MEDICATIONS: none MEDS HELD/DISCONTINUED: none BRIEF HOSPITAL COURSE: documented in this encounterSamaritan [facility] Center04-27-2023 History of Present illness Narrative* Ramu Alanis MA - 01/12/2023 2:16 PM EDT Scan on 01/11/2023 9:00 PM by External Provider, PAAndriyC: Consultation - Emergency Medicine Ramu Alanis MA documented in this encounterSamaritan [facility] Center04-26-[address] Davila [facility] January 11, 2023 8:54pm Note Date/Time January 11, 2023 8:4 7pm [facility] Medical Records Department [address] [place] [address] Discharge Summary 01/11/232041 MR#: [id number] Acct: [id number] Name: RONNIE YARBROUGH Rep #:[id number] : 1950 72 From: Shabbir Davila MD PCP: Dr. Ovidio Vincent MD Status:ADM IN Location: [address] Date of Admission: 01/05/23 Primary Care Physician: Dr. Ovidio Vincent MD Reason For Visit: MICRODISECTOMY SPINE Diagnosis Discharge Diagnosis (1) Debility: Status: Acute Code(s): R53.81 - Other malaise (2) Thoracic spinal stenosis: Status: Acute Code(s): M48.04 - Spinal stenosis, thoracic region (3) Hyperlipidemia: Status: Acute Code(s): E78.5 - Hyperlipidemia, unspecified (4) COPD (chronic obstructive pulmonary disease): Status: Chronic Code(s): J44.9 - Chronic obstructive pulmonary disease, unspecified (5) Diabetes mellitus: Status: Acute Code(s): E11.9 - Type 2 diabetes mellitus without complications (6) Osteoarthritis: Status: Acute Code(s): M19.90 - Unspecified osteoarthritis, unspecified site (7) Rheumatoid arthritis: Status: Acute Code(s): M06.9 - Rheumatoid arthritis, unspecified (8) GERD (gastroesophageal reflux disease): Status: Acute Code(s): K21.9 - Gastro-esophageal reflux disease without esophagitis (9) History of multiple myeloma: Status: Acute Code(s): Z85.79 - Personal history of other malignant neoplasms of lymphoid, hematopoietic and related tissues Plan 72 year old male with below past medical history underwent posterior T11-T12 microdecompression surgery 12/28/[address] Bry Sue, admitted to TCU with debility, here for rehabilitation, strengthening, prior to discharge home with . * Debility - PT/OT. * Pain - Tylenol 1000mg q6h prn pain (1-3), Tramadol 50mg q6h prn pain (4-5), Oxycodone 5mg q4h prn pain (6-10). * Bowel - Miralax 17gm daily, senna/colace 2 tablets bid, MOM 30ml po x 1 prn. * Adult immunization - Administer pneumonia vaccine, covid19 vaccine, flu vaccine as appropriate. * DVT prophylaxis - Monitor. * CV prophylaxis - Aspirin 81mg daily. * Hyperlipidemia - Atorvastatin 40mg qhs. * Osteoarthritis - Celebrex 200mg bid. * Vitamin B12 deficiency - B12 1000Mcg daily. * Diabetes Mellitus II - Metformin 1000mg bidcm, Jardiance 10mg daily, Trulicity 1.5mg per week. * COPD - Trelegy 100mcg 1 puff daily. * Edema - Lasix 40mg daily, Aldactone 25mg daily. * Neuropathic pain - Gabapentin 300mg bid. * Rheumatoid arthritis - Plaquenil 200mg daily, Lefluonomide 10mg daily. * Hypertension - Losartan 25mg daily. * Insomnia - Melatonin 10mg qhs prn. * Nutrition - MVI daily. * GERD - Pantoprazole 40mg daily. * Fungal infection - Terbinafine 250mg daily thru 01/12/2023. Medications at Discharge Home Medications aspirin 81 mg tablet,delayed release 81 mg PO DAILY Heart 01/05/23 atorvastatin 40 mg tablet 40 mg PO DAILY cholesterol 01/05/23 calcium carb-ergocalciferol (vit D2) 600 mg calcium-200 unit tablet 200 tab PO DAILY Supplment 01/05/23 celecoxib 200 mg capsule 200 mg PO BID Pain 01/05/23 cholecalciferol (vitamin D3) 50 mcg (2,000 unit) tablet 50 mcg PO DAILY Supplement 01/05/23 cyanocobalamin (vitamin B-12) 1,000 mcg capsule 1,000 mcg PO DAILY Supplement 01/05/23 dapagliflozin 5 mg tablet 5 mg PO DAILY Heart 01/05/23 dulaglutide 1.5 mg/0.5 mL subcutaneous pen injector (Trulicity) 0 mg subcut MO DM 01/05/23 fluticasone fur. 100 mcg-umeclid 62.5 mcg-vilant 25 mcg inhalat.powder 1 inh inhalation DAILY Allergies 01/05/23 gabapentin 300 mg capsule 300 mg PO BID Lumbar Canal Stenosis 01/05/23 leflunomide 10 mg tablet 10 mg PO DAILY Arthritis 01/05/23 losartan 25 mg tablet 25 mg PO DAILY BP 01/05/23 metformin 1,000 mg tablet 1,000 mg PO BID DM 01/05/23 mometasone-formoterol HFA 200 mcg-5 mcg/actuation aerosol inhaler (Dulera) 2 puff inhalation BID COPD 01/05/23 multivitamin 1 tab PO DAILY Supplement 01/05/23 multivitamin with minerals 1 tab PO DAILY Supplement 01/05/23 omeprazole 40 mg capsule,delayed release 40 mg PO DAILY GERD 01/05/23 spironolactone 25 mg tablet 25 mg PO DAILY BP 01/05/23 tadalafil 20 mg tablet 20 mg PO X1 PRN Erectile Dysfunction 01/05/23 terbinafine HCl 250 mg tablet 250 mg PO DAILY Antifungal 01/05/23 fluticasone fur. 100 mcg-umeclid 62.5 mcg-vilant 25 mcg inhalat.powder (Trelegy Ellipta) 1 ea inhalation DAILY #0 ea 01/11/23 Hospital Course Operations - (See below.) Procedures None Summary of Care Provided Minutes Spent on Discharge: 35 Hospital Course: 72 year old male with below past medical history underwent posterior T11-T12 microdecompression surgery 12/28/[address] Bry Sue, admitted to TCU with debility, here for rehabilitation, strengthening, prior to discharge home with . Discharge home with 01/14/2023, [facility] PT/OT. Physical Exam Const alert General Appearance: cooperative HEENT normocephalic Eyes PERRL and EOMs intact bilaterally Neck supple, no JVD and no carotid bruits Resp normal respiratory effort, normal air movement and clear to auscultation bilaterally Cardio regular rate and regular rhythm GI normal to inspection, nondistended, normoactive bowel sounds, non-tender and non-distended Extremity normal capillary refill General Extremity: Negative for edema Skin no rashes or lesions noted General Skin Exam: no breakdown Psych affect normal Appearance: appropriate Weight / BMI Weight Weight: 96.479 kg Body Mass Index (BMI) 31.4 ABG / Lab / Microbiology Data Result Diagrams: 01/06/23 05:26 01/06/23 05:26 Laboratory: Laboratory Results - last 24 hr 01/10/23 21:37: POC Glucose 131 H 01/11/23 05:58: POC Glucose 135 H Microbiology: Microbiology 01/09/23 06:30 Nasal Secretion SARS-CoV-2 Antigen (Rapid) - Final 01/07/23 06:22 Nasal Secretion SARS-CoV-2 Antigen (Rapid) - Final 01/05/23 08:44 Nasal Secretion SARS-CoV-2 Antigen (Rapid) - Final D/C Instructions Discharge Diet: No restrictions Discharge Activity: Return to Normal Activity, May Shower and Use Walker Weight Bearing Status: Weight bearing as tolerated Call your doctor if you observe: Fever of 101 or Higher, Inability to urinate, Inability to have a bowel movement, Shortness of breath, Dizziness, Fainting spells, Swelling in the ankles, Chest pain and Uncontrolled pain Additional Instructions: Discharge home with 01/14/2023, [facility] PT/OT. Please Follow Up With: Bry Sue MD When: As scheduled. Meaningful Use Info Meaningful Use Diagnoses (Choose all that apply): None applicable Discharge Plan Admission Admit Date/Time: 01/05/23 14:55 Primary Reason for Your Visit: Debility. Attending Provider: Shabbir Davila Chi Primary Care Provider: Ovidio Vincent Instructions Additional Instructions / Restrictions: Discharge home with 01/14/2023, [facility] PT/OT. Discharge Orders/Prescriptions Prescriptions: New Avtar Ellipta 100-62.5-25 mcg Blister With Device 1 ea inhalation DAILY Qty: 0 0RF Continued atorvastatin 40 mg tablet 40 mg PO DAILY aspirin 81 mg tablet,delayed release (DR/EC) 81 mg PO DAILY Label Comments: take 1 tablet by mouth once daily gabapentin 300 mg capsule 300 mg PO BID celecoxib 200 mg Capsule 200 mg PO BID cholecalciferol (vitamin D3) 50 mcg (2,000 unit) tablet 50 mcg PO DAILY Label Comments: take 1 tablet by mouth once daily dapagliflozin 5 mg Tablet 5 mg PO DAILY Trulicity 1.5 mg/0.5 mL pen injector 0 mg SUBCUT MO Label Comments: inject 0.5 milliliters ( 1 AND 1/2 milligrams ) subcutaneously ONCE A WEEK (DISCARD PEN AFTER USE) cyanocobalamin (vitamin B-12) 1,000 mcg Capsule 1,000 mcg PO DAILY [id number] 100-62.5-25 mcg Blister With Device 1 inh INHALATION DAILY leflunomide 10 mg Tablet 10 mg PO DAILY omeprazole 40 mg capsule,delayed release(DR/EC) 40 mg PO DAILY Label Comments: take 1 capsule by mouth once daily ON AN EMPTY STOMACH spironolactone 25 mg Tablet 25 mg PO DAILY metformin 1,000 mg tablet 1,000 mg PO BID losartan 25 mg tablet 25 mg PO DAILY multivitamin with minerals Tablet 1 tab PO DAILY tadalafil 20 mg tablet 20 mg PO X1 PRN (Reason: Erectile Dysfunction) Dulera 200-5 mcg/actuation Hfa Aerosol Inhaler 2 puff INHALATION BID terbinafine HCl 250 mg Tablet 250 mg PO DAILY calcium carbonate-vitamin D2 600 mg calcium- 200 unit Tablet 200 tab PO DAILY multivitamin Tablet 1 tab PO DAILY Discontinued docusate sodium [Colace] 100 mg Capsule 100 mg PO BID PRN (Reason: Constipation) oxycodone 5 mg tablet 5 mg PO Q6H PRN (Reason: Pain (Scale Score 6-10)) furosemide 40 mg tablet 40 mg PO DAILY Label Comments: take 1 tablet by mouth twice a day hydroxychloroquine 200 mg tablet 200 mg PO DAILY Label Comments: take 1 tablet by mouth twice a day torsemide 10 mg tablet 10 mg PO DAILY Referrals / Follow Up: Ovidio Vincent MD [Primary Care Provider] - Disposition Disposition (needs filled in before D/C Order can be placed): Home, Self Care 01/11/232053 <Electronically signed by Shabbir Davila MD> Cosigner Signature (if applicable): CC: Dr. Ovidio Vincent MD; Dr. Shabbir Davila MD~ Signed [facility] Work Phone: [phone]) 740-742704-24-2023 History of Present illness Narrative* Ramu Alanis MA - 01/09/2023 12:32 PM EDT Scan on 01/05/2023 8:04 PM by External Provider: Consultation - Emergency Medicine Ramu Alanis [facility]' [facility] Davila [facility] January 06, 2023 1:07pm Note Date/Time January 06, 2023 11: 55am [facility] Medical Records Department [address] [place] [address] Progress Note - Pharmacy 01/06/23 1128 MR#: [id number] Acct: [id number] Name: RONNIE YARBROUGH Rep #:[id number] : 1950 72 From: Angelica Quinteros PCP: Dr. Ovidio Vincent MD Status:ADM IN Location: TCU [place] [address] TCU RX Drug Regimen Review Subjective: 72 YOM admitted on 01/05/23 S/P microdecompression of spinal cord at outside facility. Admitted to TCU for strengthening and rehabilitation prior to discharge home where he resides with his . Objective: Allergies No Known Allergies Allergy (Verified 10/11/17 09:06) Current Medications Generic Name Dose Route Start Last Admin Trade Name Freq PRN Reason Stop Dose Admin Acetaminophen 1,000 mg 01/05/23 19:55 Acetaminophen 500 Mg Tablet PO Q6H PRN PRN Pain Score 1-3 Aspirin 81 mg 01/06/23 06:00 01/06/23 05:07 Aspirin E.C. 81 Mg Tablet PO 81 mg DAILY DAVID Administration Atorvastatin Calcium 40 mg 01/05/23 22:00 01/05/23 20:46 Atorvastatin Calcium 40 Mg Tablet PO 40 mg QHS DAVID Administration Celecoxib 200 mg 01/05/23 18:00 01/06/23 05:07 Celecoxib 200 Mg Capsule PO 200 mg BID DAVID Administration Cyanocobalamin 1,000 mcg 01/06/23 06:00 01/06/23 05:07 Cyanocobalamin 500 Mcg Tablet PO 1,000 mcg DAILY DAVID Administration Empagliflozin 10 mg 01/06/23 06:00 01/06/23 05:07 Empagliflozin 10 Mg Tablet PO 10 mg DAILY DAVID Administration Furosemide 40 mg 01/06/23 06:00 01/06/23 05:10 Furosemide 40 Mg Tablet PO Not Given DAILY DAVID Gabapentin 300 mg 01/05/23 18:00 01/06/23 05:28 Gabapentin 300 Mg Capsule PO 300 mg BID DAVID Administration Hydroxychloroquine Sulfate 200 mg 01/06/23 06:00 01/06/23 05:07 Hydroxychloroquine 200 Mg Tablet PO 200 mg DAILY DAVID Administration Leflunomide 10 mg 01/06/23 06:00 01/06/23 05:08 Leflunomide 10 Mg Tablet PO 10 mg DAILY DAVID Administration Losartan Potassium 25 mg 01/06/23 06:00 01/06/23 05:10 Losartan Potassium 25 Mg Tablet PO 25 mg DAILY DAVID Administration Magnesium Hydroxide 30 ml 01/05/23 19:55 Magnesium Hydroxide 30 Ml Udc PO X1 PRN Constipation Melatonin 10 mg 01/05/23 17:14 01/05/23 20:52 Melatonin 10 Mg Tablet PO 10 mg QHS PRN PRN Administration INSOMNIA Metformin HCl 1,000 mg 01/05/23 17:00 01/06/23 08:02 Metformin Hcl 1,000 Mg Tablet PO 1,000 mg BIDCM DAVID Administration Multivitamins/Minerals 1 tablet 01/06/23 06:00 01/06/23 05:07 Multivitamins,Ther W-Minerals Tablet PO 1 tablet DAILY DAVID Administration Non-Formulary Medication 1.5 mg 01/09/23 15:46 Dulaglutide [Trulicity] SC MO DAVID Oxycodone HCl 5 mg 01/05/23 19:57 Oxycodone 5 Mg Tablet PO 01/12/23 19:56 Q4H PRN PRN Pain (Scale Score 6-10) Pantoprazole Sodium 40 mg 01/06/23 06:00 01/06/23 05:07 Pantoprazole Sodium 40 Mg Tablet PO 40 mg DAILY DAVID Administration Polyethylene Glycol 17 gm 01/06/23 06:00 01/06/23 05:10 Polyethylene Glycol 3350 17 Gm Packet PO Not Given DAILY DAVID Senna/Docusate Sodium 2 tablet 01/05/23 20:00 01/06/23 05:09 Senna/Docusate Sodium 1 Tablet PO Not Given BID DAVID Spironolactone 25 mg 01/06/23 06:00 01/06/23 05:07 Spironolactone 25 Mg Tablet PO 25 mg DAILY DAVID Administration Terbinafine HCl 250 mg 01/06/23 06:00 01/06/23 05:09 Terbinafine Hcl 250 Mg Tablet PO 01/12/23 06:01 250 mg DAILY DAVID Administration Tramadol HCl 50 mg 01/05/23 19:55 Tramadol 50 Mg Tablet PO Q6H PRN PRN Pain Score 4-5 Tuberculin PPD 0.1 ml 01/13/23 10:00 Tuberculin,Purif.Prot.Deriv. 50 Tu/Ml Vial ID 01/13/23 10:01 X1 ONE Problem List (Last Updated 01/05/23 @ 19:[address] Shabbir Davila MD) History of multiple myeloma (Acute) GERD (gastroesophageal reflux disease) (Acute) Rheumatoid arthritis (Acute) Osteoarthritis (Acute) Diabetes mellitus (Acute) COPD (chronic obstructive pulmonary disease) (Chronic) Hyperlipidemia (Acute) Debility (Acute) Thoracic spinal stenosis (Acute) Vital Signs Temp Pulse Resp BP Pulse Ox O2 Del Method 97.4 F L 84 16 117/75 97 Room Air 01/06/23 05:16 01/06/23 05:16 01/06/23 05:16 01/06/23 05:16 01/06/23 05:16 01/06/23 10:00 Oxygen Delivery Method Room Air Weight: 95.906 kg Body Mass Index (BMI) 31.2 Sodium 136 mmol/L (136-145) 01/06/23 05:26 Potassium 4.5 mmol/L (3.5-5.1) 01/06/23 05:26 Chloride 106 mmol/L (98-107) 01/06/23 05:26 Carbon Dioxide 25.0 mmol/L (21.0-32.0) 01/06/23 05:26 Anion Gap 5 (5-15) 01/06/23 05:26 BUN 23 mg/dL (7-18) H 01/06/23 05:26 Creatinine 1.09 mg/dL (0.70-1.30) 01/06/23 05:26 Est GFR (MDRD) Af Amer 86 mL/min (>60) 01/06/23 05:26 Est GFR (MDRD) Non-Af 71 mL/min (>60) 01/06/23 05:26 BUN/Creatinine Ratio 21.1 RATIO (10-20) H 01/06/23 05:26 Glucose 131 mg/dL (74-106) H 01/06/23 05:26 Assessment/Plan: 1. pain: Tylenol 1000mg PO Q6h PRN Pain 1-3, Tramadol 50mg PO Q6h PRN Pain 4-5, Oxycodone 5mg PO Q4h PRN Pain 6-10. Please continue to monitor for increased/decreased S/S Pain, PRN medication usage, oversedation/constipation with opioid usage. - To date, the patient has not required any PRN medications for pain. Appears pain is managed at this time. 2. HTN/HLD/Cardiac: Aspirin 81mg PO Daily, Lipitor 40mg PO QHS, Furosemide 40mg PO Daily, Losartan 25mg PO Daily, Aldactone 25mg PO Daily. Please continue to monitor BP (range 115-117/71-75), pulse (range 84-92), electrolytes (WNL on 01/06), I/O, S/S edema/swelling, daily weights, S/S bleeding/bruising, H/H (stable 01/06). - Of note, per EMR review, the patient does not want to take Lasix medication and refused morning dose. Please continue to monitor patient closely for increase in swelling since lasix medication is not being administered, thank you. 3. Rheumatoid arthritis: Celebrex 200mg PO BID, Hydroxychloroquine 200mg PO Daily, Leflunomide 10mg PO Daily. Please continue to monitor LFT (none on file currently), rash, infection, nausea/vomiting, QTc (via EKG) as clinically indicated, H/H, S/S bleeding/bruising. 4. DM2: Jardiance 10mg PO Daily, Metformin 1000mg PO BID, Trulicity 1.5mg SC weekly. Please continue to monitor BG levels, S/S hypoglycemia, local site reactions, renal function (CrCl 62mL/min 01/06), A1c every 3 months. Please consider obtaining an A1c on this patient, as there is none on file, thank you. 5. Neuropathic pain: Gabapentin 300mg PO BID. Please continue to monitor for oversedation, renal function, medication effectiveness. This is a Beer's Criteria medication which can increase the risk of falls in patients >65 years of age. Per EMR review, patient has not had an issue with falls at this time, continue to monitor closely. 6. Fungal infection: Terbinafine 250mg PO Daily thru 01/12/23. Please continue to monitor for resolution of infection. 7. GERD: Protonix 40mg PO Daily. Please continue to monitor for GERD exacerbations, stomach upset, headache. May also encourage non-pharmacologic therapies to help minimize flare-ups, as well. 8. Insomnia: Melatonin 10mg PO QHS PRN. Please continue to monitor for medication effectiveness, oversedation. May give medication 2hrs prior to desired bedtime to help increase effectiveness, also. 9. General wellness: Vitamin B12 1000mcg PO Daily, MVI 1 tab PO daily. 10. Bowel: Miralax 17g PO Daily, Senna/docusate 2 tab PO BID, MOM 30mL PO x1 PRN. Please continue to monitor for increased/decreased constipation and/or diarrhea. - The patient has not had a bowel movement to date per MAR, but pt admitted <24hrs ago. Assessment/Plan for indications treated with psychotropic medications: -The patient is not currently on any psychotropic medications at time of medication review. Medical chart and medication regimen reviewed. The following medication irregularities or issues were identified: 1. Patient with COPD diagnosis, not currently on any medications upon admission. Noted in home medication list that patient takes Trelegy at home. Please evaluate if the patient needs to be medicated at this time, thank you. 2. Bowel regimen: Per nursing documentation/MAR, pt refusing bowel regimen orders and has refused doses. Please continue to monitor and consider changing medications to PRN status if patient has a bowel movement and continues to refuse medications, thank you. 3. Please consider obtaining LFTs on this patient, as the patient is currently taking medications for rheumatoid arthritis which can affect liver function. No labs noted on file, thank you. 4. Patient with DM@ on several medications, no A1c on file. Please consider obtaining an A1c if clinically indicated, thank you. Date of Note:: 01/06/23 01/06/23 1156 <Electronically signed by Angelica Quinteros > Angelica Quinteros Cosigner Signature (if applicable): 01/06/23 1307 <Electronically signed by Shabbir Davila MD> CC: ~ Signed [facility] Work Phone: 1(392) 331-121104-20-2023 History and physical note Author Dr. Davila [facility] January 05, 2023 7:55pm Note Date/Time January 05, 2023 7:4 8pm [facility] Medical Records Department [address] [place] [address] History & Physical Exam 01/05/231940 MR#: [id number] Acct: [id number] Name: RONNIE YARBROUGH Rep #:[id number] : 1950 72 From: Shabbir Davila MD PCP: Dr. Ovidio Vincent MD Status:ADM IN Location: [place] [address] HPI - General General Date of Admission: 01/05/23 Date of Service: 01/05/23 Chief Complaint: Here for rehabilitation. HPI Narrative RONNIE YARBROUGH, is a 72 Male who presents with followin12/28/2022 Admit to [facility]. 12/28/2022 Dr. Bry Sue performed posterior T11-T12 microdecompression due to severe spinal nerve and cord involvement. Patient has constant back pain, bilateral lower extremity numbness, has been wheelchair bound for last week. 12/29/2022 PT/OT. SCD for DVT prophylaxis. 01/05/2023 Admit to TCU with debility, here for rehabilitation, strengthening, prior to discharge home with . [facility] Medical History (Updated 01/05/23 @ 19:[address] Shabbir Davila MD) COPD (chronic obstructive pulmonary disease) Debility Diabetes mellitus GERD (gastroesophageal reflux disease) History of multiple myeloma Hyperlipidemia Hypertension Osteoarthritis Rheumatoid arthritis Thoracic spinal stenosis Home Medications aspirin 81 mg tablet,delayed release 81 mg PO DAILY Heart 01/05/23 [History Last Taken Unknown] atorvastatin 40 mg tablet 40 mg PO DAILY cholesterol 01/05/23 [History Last Taken Unknown] calcium carb-ergocalciferol (vit D2) 600 mg calcium-200 unit tablet 200 tab PO DAILY Supplment 01/05/23 [History Last Taken Unknown] celecoxib 200 mg capsule 200 mg PO BID Pain 01/05/23 [History Last Taken Unknown] cholecalciferol (vitamin D3) 50 mcg (2,000 unit) tablet 50 mcg PO DAILY Supplement 01/05/23 [History Last Taken Unknown] cyanocobalamin (vitamin B-12) 1,000 mcg capsule 1,000 mcg PO DAILY Supplement 01/05/23 [History Last Taken Unknown] dapagliflozin 5 mg tablet 5 mg PO DAILY Heart 01/05/23 [History Last Taken Unknown] docusate sodium 100 mg capsule (Colace) 100 mg PO BID PRN Constipation 01/05/23 [History Last Taken Unknown] dulaglutide 1.5 mg/0.5 mL subcutaneous pen injector (Trulicity) mg subcut MO DM 01/05/23 [History Last Taken Unknown] fluticasone fur. 100 mcg-umeclid 62.5 mcg-vilant 25 mcg inhalat.powder 1 inh inhalation DAILY Allergies 01/05/23 [History Last Taken Unknown] furosemide 40 mg tablet 40 mg PO DAILY Fluid Retention 01/05/23 [History Last Taken Unknown] gabapentin 300 mg capsule 300 mg PO BID Lumbar Canal Stenosis 01/05/23 [History Last Taken Unknown] hydroxychloroquine 200 mg tablet 200 mg PO DAILY Arthritis 01/05/23 [History Last Taken Unknown] leflunomide 10 mg tablet 10 mg PO DAILY Arthritis 01/05/23 [History Last Taken Unknown] losartan 25 mg tablet 25 mg PO DAILY BP 01/05/23 [History Last Taken Unknown] metformin 1,000 mg tablet 1,000 mg PO BID DM 01/05/23 [History Last Taken Unknown] mometasone-formoterol HFA 200 mcg-5 mcg/actuation aerosol inhaler (Dulera) 2 puff inhalation BID COPD 01/05/23 [History Last Taken Unknown] multivitamin 1 tab PO DAILY Supplement 01/05/23 [History Last Taken Unknown] multivitamin with minerals 1 tab PO DAILY Supplement 01/05/23 [History Last Taken Unknown] omeprazole 40 mg capsule,delayed release 40 mg PO DAILY GERD 01/05/23 [History Last Taken Unknown] oxycodone 5 mg tablet 5 mg PO Q6H PRN Pain (Scale Score 6-10) 01/05/23 [History Last Taken Unknown] spironolactone 25 mg tablet 25 mg PO DAILY BP 01/05/23 [History Last Taken Unknown] tadalafil 20 mg tablet 20 mg PO X1 PRN Erectile Dysfunction 01/05/23 [History Last Taken Unknown] terbinafine HCl 250 mg tablet 250 mg PO DAILY Antifungal 01/05/23 [History Last Taken Unknown] torsemide 10 mg tablet 10 mg PO DAILY Heart 01/05/23 [History Last Taken Unknown] Allergy/AdvReac Type Severity Reaction Status Date / Time No Known Allergies Allergy Verified 10/11/17 09:06 Family History (Updated 01/05/23 @ 19:[address] Shabbir Davila MD) Father Cancer, Onset Age: 52 Pancreatic cancer. Surgical History (Updated 01/05/23 @ 19:[address] Shabbir Davila MD) History of bone marrow transplant History of lumbar fusion History of reverse total replacement of right shoulder joint History of total right knee replacement (TKR) Hx of fusion of cervical spine Social History (Updated 01/05/23 @ 19:[address] Shabbir Davila MD) household members: spouse Smoking Status: Former smoker quit date: 09/18/12 alcohol intake: never substance use type: does not use ROS Constitutional Constitutional: Denies chills, fever(s) or weight gain ENT HEENT: Denies headache(s), nasal congestion or nasal discharge Cardiovascular Cardiovascular: Denies chest pain or palpitations Respiratory/Chest Respiratory/Chest: Denies cough, excessive phlegm production or shortness of breath with exertion Gastrointestinal Gastrointestinal: Denies abdominal pain, nausea or vomiting Genitourinary Genitourinary: Denies dysuria Musculoskeletal Musculoskeletal: Denies joint pain or joint swelling Integumentary Integumentary: Denies rash or wounds Neurologic Neurologic: Denies focal weakness, numbness or tingling Psychiatric Psychiatric: Denies anxiety, auditory hallucinations, depression, homicidal ideation or suicidal ideation Vital Signs Vital Signs Vital Signs: 01/05/23 15:02 01/05/23 15:10 01/05/23 15:57 Temperature 98.6 F 98.6 F Temperature Source Temporal Temporal Pulse Rate 91 91 92 Pulse Rhythm Regular Pulse Strength Normal (2+) Respiratory Rate 16 16 18 Respiratory Effort Normal Non-Labored Respiratory Depth Normal Respiratory Pattern Normal Blood Pressure 115/71 115/71 Blood Pressure Mean 85 85 Blood Pressure Source Monitor Monitor Blood Pressure Position Sitting Sitting Blood Pressure Location Left Arm Left Arm Pulse Ox 94 94 96 Oxygen Delivery Method Room Air Room Air Room Air 01/05/23 16:38 Temperature Temperature Source Pulse Rate Pulse Rhythm Pulse Strength Normal (2+) Respiratory Rate Respiratory Effort Respiratory Depth Respiratory Pattern Blood Pressure Blood Pressure Mean Blood Pressure Source Blood Pressure Position Blood Pressure Location Pulse Ox Oxygen Delivery Method Weight Weight: 95.906 kg Body Mass Index (BMI) 31.2 Physical Exam Const alert General Appearance: cooperative HEENT normocephalic Eyes PERRL and EOMs intact bilaterally Neck supple, no JVD and no carotid bruits Resp normal respiratory effort, normal air movement and clear to auscultation bilaterally Cardio regular rate and regular rhythm GI normal to inspection, nondistended, normoactive bowel sounds, non-tender and non-distended Extremity normal capillary refill General Extremity: Negative for edema Skin no rashes or lesions noted General Skin Exam: no breakdown Psych affect normal Appearance: appropriate Assessment & Plan Assessment/Plan (1) Debility: (2) Thoracic spinal stenosis: (3) Hyperlipidemia: (4) COPD (chronic obstructive pulmonary disease): (5) Diabetes mellitus: (6) Osteoarthritis: (7) Rheumatoid arthritis: (8) GERD (gastroesophageal reflux disease): (9) History of multiple myeloma: PLAN: Plan 72 year old male with below past medical history underwent posterior T11-T12 microdecompression surgery 12/28/[address] Bry Sue, admitted to TCU with debility, here for rehabilitation, strengthening, prior to discharge home with . * Debility - PT/OT. * Pain - Tylenol 1000mg q6h prn pain (1-3), Tramadol 50mg q6h prn pain (4-5), Oxycodone 5mg q4h prn pain (6-10). * Bowel - Miralax 17gm daily, senna/colace 2 tablets bid, MOM 30ml po x 1 prn. * Adult immunization - Administer pneumonia vaccine, covid19 vaccine, flu vaccine as appropriate. * DVT prophylaxis - Monitor. * CV prophylaxis - Aspirin 81mg daily. * Hyperlipidemia - Atorvastatin 40mg qhs. * Osteoarthritis - Celebrex 200mg bid. * Vitamin B12 deficiency - B12 1000Mcg daily. * Diabetes Mellitus II - Metformin 1000mg bidcm, Jardiance 10mg daily, Trulicity 1.5mg per week. * COPD - Trelegy 100mcg 1 puff daily. * Edema - Lasix 40mg daily, Aldactone 25mg daily. * Neuropathic pain - Gabapentin 300mg bid. * Rheumatoid arthritis - Plaquenil 200mg daily, Lefluonomide 10mg daily. * Hypertension - Losartan 25mg daily. * Insomnia - Melatonin 10mg qhs prn. * Nutrition - MVI daily. * GERD - Pantoprazole 40mg daily. * Fungal infection - Terbinafine 250mg daily thru 01/12/2023. 01/05/231954 <Electronically signed by Shabbir Davila MD> Cosigner Signature (if applicable): CC: Dr. Ovidio Vincent MD; Dr. Shabbir Davila MD~ Signed [facility] Work Phone: [phone]) 652-400404-05-2023 History of Present illness Narrative* Mara Guardado RN - 12/21/2022 2:26 PM EDT INSIGHT CDM TELEPHONIC OUTREACH Provider Action/FYI: Pt denies new or worsening CDM symptoms at this time. He states in terms of these symptoms I'm feeling fine. However, Pt states he had a fall back in June when he blacked out due to a low blood sugar. He cracked a vertebrae. It has recently become so bad he states he an barely walk. He said he is going to [facility] tomorrow, 12/22, and will be having an MRI. Pt confirms he has the help/support of his in terms of managing at home. Pt denies needs, questions, concerns at this time. END OUTREACH Contact made with patient: Yes Patient identified by name and . Discussed care with patient It s nice talking to you again. As a reminder, this is our bi-weekly check-in where I will be asking you questions about your health. This will only take a few minutes of your time. Is this a good time? Yes Symptoms What Chronic Disease(s) does the patient have: COPD Do you check your blood pressures at home? No Do you have new or worse shortness of breath with activity? No Do you have new or worsening cough? No Do you have new or worsening wheezing? No Do you need to use your rescue (Albuterol) inhaler or nebulizer more often than normal? No Are you having any other symptoms that your PCP needs to know about? No Symptoms: Symptom Escalation MACO Education Ordered -: No The patient required an escalation for symptom(s)? No Medications Do you have any questions about taking your medication or which medications you should be on? No Do you need any medication refills at this time, including any of the medications you might take only when needed? No Social We would like to make sure you have what you need so that your basic needs are met- including your personal safety, food, housing, transportation and medications? Would you like to speak with a social work senior engineering team leader to help give you support for any of these needs? No It can be normal to feel anxious or down during a time like this. Would you like to talk to a mental health professional about how you have been feeling? No Closing Thank you for taking the time to talk with me today. We want to work with you to ensure that we arekeeping your medical condition(s) well-controlled and to keep you healthy and out of the doctor's office or hospital. It s also not too late for me to sign you up for automated weekly questionnaires through [employer]. This is an easy way for us to stay connected each week. Are you interested? No, I understand. We can always sign you up in the future if you change your mind. Just as a reminder, will continue to call you every other week to check in on your health. Our calls should take 10-15 minutes or less. Remember, if you have concerns in between our calls, please call your PCP's office right away. Thank you. Enter next patient outreach date for two weeks on the same day of the week as today in the Track PtOutreach and End outreach. documented in this encounter[facility]04-04-2023 Miscellaneous Notes* Telephone Encounter - Arlet Clemens LPN - 12/20/2022 8:50 AM EDT Pt notified of results and provider message. Arlet Clemens LPN * Telephone Encounter - Slime Hernandez LPN - 12/20/2022 8:40 AM EDT Left message for pt to contact office. See both TE. Slime Hernandez LPN * Telephone Encounter - Ovidio Vincent MD - 12/19/2022 10:52 PM EDT Let patient know metabolic panel and Vit D level were ok. documented in this encounterSam[facility]04-03-2023 History of Present illness Narrative* Vivian Gambino RDMS - 12/19/2022 10:45 AM EDT Radiology Service Progress Note PATIENT NAME: Ronnie Yarbrough DATE OF SERVICE: December 19, 2022 TIME: 11:16 AM PATIENT IDENTITY VERIFICATION COMPLETED USING TWO (2) IDENTIFIERS: Name and Date of confirmedby patient verbally. FALL SCREENING: Has the patient had 2 falls in the last year or 1 fall with injury or currently using an Ambulatory Assistive Device (Walker, Cane, Wheelchair, Crutches, etc.)? Yes, Patient High Riskfor Falls What interventions were put in place to prevent falls during this visit? Instructed Patient to Callfor Help if Needed, Offered Assistance with Transfers/Clothing, Instructed Patient to Remain Seated(Not on Exam Table) Until Exam, and Increased Observations by Caregivers PATIENT GENDER DATA: Male PATIENT RELEVANT IMPLANT DATA REVIEWED: Not Applicable RADIOLOGY DEPARTMENT: Ultrasound PERIPHERAL IV DATA: Not applicable SIGNED BY: Vivian Gambino RDMS RVT December 19, 2022 11:16 AM documented in this encounterSam[facility]04-03-2023 Miscellaneous Notes* Telephone Encounter - Ramu Alanis MA - 12/19/2022 9:41 AM EDT Faxed most recent office visit regarding an update on patient. Sent my chart to patient to see if he has heard from Dr. Sue's office. Ramu Alanis MA * Telephone Encounter - Ramu Alanis MA - 12/16/2022 12:53 PM EDT Left message with nurse regarding patient. His spinal stenosis has gotten worse and patient needs to be seen sooner than january. Patient per Dr. Vincent is deteriorating quickly. Ramu Alanis MA documented in this encounterSam[facility]03-31-2023 History of Present illness Narrative* Ovidio Vincent MD - 12/16/2022 11:45 AM EDT Chief Complaint Patient presents with: Follow Up HPI Ronnie Yarbrough is a 72 year old male who presents here today for 4 week follow up on leg edema Patient with hx of DM2, HTN, HLP, COPD, pulm HTN, GERD, multiple myeloma in remission, neuropathy, former smoker, polyarthropathy and those as reviewed/updated below. Patient is having some swelling in his legs but improved with the medication changes at last visit. He has been getting weaker in his legs and walking with a hernandez. He as an appt with Dr. Enrique Sueat [facility] in January. Past medical history, appointments, medications, allergies reviewed. 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 Day: +12; Engrafted Protocol(s): 3422 1C Preparative regimen: melphalan Mobilization regimen: neupogen and plerixafor Stem cell source: apheresis CD34 cell dose (x10e6/kg): 5.14 Date of transplant: 06/15/2018 Bilateral leg edema 09/30/2022 Cancer of the skin, 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[facility]) 06/13/2018 --ppx ACV and cipro Inflammatory polyarthropathy ([facility]) Leg DVT (deep venous thromboembolism), acute, left ([facility]) 01/02/2018 --acute DVT gastrocnemius found 12/13/2017 --continue apixaban till platelets <50K, last dose 06/21/2018 Living will on file at physician's office 09/30/2022 DPA: BREN () Low serum vitamin B12 04/22/2021 Lumbar spinal stenosis Medicare annual wellness visit, subsequent 10/06/2021 Medicare part B: Not able to find, Last done: 10/06/2021 Mixed hyperlipidemia 10/31/2006 --will hold atorvastatin d/t interactions with chemotherapy can resume at discharge Multiple myeloma ([facility]) 11/28/2017 Multiple myeloma in remission ([facility]) Obesity 10/01/2012 Obesity, Class I, BMI 30-34.9 10/01/2012 Osteoarthritis of both hands Pancytopenia due to chemotherapy ([facility]) 06/25/2018 --Transfuse PRBC and platelets per protocol --GCSF Peripheral autonomic neuropathy in disorders classified elsewhere 06/07/2005 Pulmonary hypertension, unspecified ([facility]) 10/23/2019 Reflux esophagitis Spinal stenosis, lumbar region, without neurogenic claudication 11/13/2006 Tobacco abuse 12/27/2011 Quit 2012 Type 2 diabetes mellitus without complication, without long-term current use of insulin ([facility]) 04/12/2018 Venous insufficiency, peripheral 01/06/2014 Vitamin D deficiency 12/31/2014 Previous Surgical History PAST SURGICAL HISTORY Procedure Laterality Date ANES ARTHROSCOPIC TOTAL SHOULDER REPLACEMENT Right 01/28/2013 [facility] - complete right shoulder replaceement ARTHRD ANT INTERBODY MIN DSC LUMBAR 2009 ARTHROTOMY W/MENISCUS REPAIR KNEE 1980 RIGHT ARTHROTOMY W/MENISCUS REPAIR KNEE 1981 LEFT ARTHRP KNE CONDYLE&PLATU MEDIAL&LAT COMPARTMENTS Right 2007 Knee replacement, total BACK SURGERY HX COLONOSCOPY FLX DX W/COLLJ SPEC WHEN PFRMD 09/25/2012 normal colonoscopy - 10 year follow up EGD TRANSORAL BIOPSY SINGLE/MULTIPLE 09/25/2012 mild distal esophagitis HAND BILATERAL OP SURGERY 2021 trigger finger/ cyst removal JOINT REPLACEMENT HX Right shoulder HARRIS W/O FACETEC FORAMOT/DSC / VRT SGM CRV 2007 Laminectomy, cervical PAST SURGICAL HISTORY OF Right 08/23/2021 carpal tunnel release with wrist arthrotomy and synovectomy PAST SURGICAL HISTORY OF Right 08/23/2021 ulnar nerve decompression SKIN BIOPSY HX TONSILLECTOMY HX Family History FAMILY HISTORY Problem Relation Age of Onset None Mother Cancer Father PANCREAS Diabetes Father Diabetes Sister None Brother Diabetes Paternal Grandmother COPD No Family History Asthma No Family History Patient Allergies ALLERGIES Allergen Reactions Gabapentin Other: See Comments Depression/suicidal ideation Current Medications Current Outpatient Medications on File Prior to Visit Medication Sig losartan (COZAAR) 25 mg tablet Take 1 tablet by mouth once daily. Tadalafil (CIALIS) 20 mg tab(s) Take 1 tablet by mouth once daily. As needed dapagliflozin (FARXIGA) 5 mg tablet Take 1 tablet by mouth once daily. Take one daily in the morning torsemide (DEMADEX) 10 mg tablet Take 1 tablet by mouth twice daily. Take with one 5 mg twice a dayfor total of 15 mg twice a day. torsemide (DEMADEX) 5 mg tablet Take 1 tablet by mouth once daily. Take with one 10 mg twice a day for total of 15 mg twice a day. metFORMIN (GLUCOPHAGE) 1,000 mg tablet Take 1 tablet by mouth twice daily with meals. atorvastatin (LIPITOR) 40 mg tablet Take 1 tablet by mouth once daily. omeprazole (PRILOSEC) 40 mg capsule TAKE ONE CAPSULE BY MOUTH ONCE DAILY ON AN EMPTY STOMACH dulaglutide (TRULICITY) 1.5 mg/0.5 mL pen injector Inject 1.5 mg subcutaneously one time a week. Inject once per week. Discard Pen After celecoxib (CELEBREX) 200 mg capsule Take 1 capsule by mouth twice daily. ilmavinlunq-wvlxsqytr-wlwasnyc (TRELEGY ELLIPTA) 100-62.5-25 mcg inhalation powder Inhale 1 Puff asinstructed once daily. SLOW-MAG 71.5 mg TbEC take 2 tablets by mouth twice a day aspirin, enteric coated (ASPIRIN, ENTERIC COATED) 81 mg EC tablet Take 1 tablet by mouth once daily. Cholecalciferol, Vitamin D3, (VITAMIN D-3) 50 mcg (2,000 unit) cap Take 1 capsule by mouth once daily. terbinafine HCl (LAMISIL) 250 mg tablet Take 1 tablet by mouth once daily. fluticasone (FLONASE) 50 mcg/actuation nasal spray One spray each nostril before bed. (Patient not taking: Reported on 09/30/2022) cyanocobalamin (VITAMIN B-12) 1,000 mcg tab Take 1 tablet by mouth once daily. Calcium-Cholecalciferol, D3, 600 mg-5 mcg (200 unit) cap Take 1 capsule by mouth once daily. Current Facility-Administered Medications on File Prior to Visit Medication perflutren lipid microspheres 1.3 mL in NaCl (PF) 0.9% 10 mL injection (DEFINITY) sodium chloride 0.9 % (flush) 10 mL (BD POSIFLUSH) Social History Social History Tobacco Use Smoking status: Former Packs/day: 1.00 Years: 41.00 Pack years: 41.00 Types: Pipe, Cigarettes Start date: 1971 Quit date: 12/09/2011 Years since quittin.0 Smokeless tobacco: Never Tobacco comments: 1/4 pack of cigs; pipe smoker. None of either since cessation. No ETS in childhood home. Smoked up to one ppd Vaping Use Vaping Use: Never used Substance Use Topics Alcohol use: Yes Comment: rare Drug use: No Review of Symptoms REVIEW OF SYSTEMS GENERAL: No weight loss, malaise or fevers NECK: Negative for lumps, goiter, pain and significant neck swelling RESPIRATORY: Negative for cough, hemoptysis, wheezing, COPD, dyspnea or shortness of breath CARDIOVASCULAR: Negative for chest pain, leg swelling, hypertension, CHF or palpitations GI: No nausea, vomiting, or diarrhea and No heartburn or reflux symptoms : No history of dysuria, blood ENDOCRINE: Negative for symptoms of low BS's NEURO: No history of headaches, syncope, paralysis, seizures or tremors EXAM: BP 128/70 (BP Site: Right Arm, BP Position: Sitting, BP Cuff Size: Large Adult) Pulse 72 Resp 18 Wt 98.9 kg (218 lb) BMI 32.19 kg/m Last 4 Encounter Wt Readings: Date: Wt: 12/16/2022 98.9 kg (218 lb) 11/07/2022 103.2 kg (227 lb 8 oz) 11/03/2022 104.3 kg (230 lb) 10/28/2022 104.3 kg (230 lb) General Appearance: Well appearing, alert, in no acute distress, well-hydrated, well nourished.. Lungs: Lungs clear to auscultation. No wheezing, rhonchi, rales.. Heart: RRR without murmur, gallop, or rubs. No ectopy. Abdomen: Normal abdominal exam, Abdomen soft, non-tender. Bowel sounds normal. No masses, organomegaly. Extremities: No deformities, skin discoloration, Good capillary refill. Edema is less then 1+ at the ankles and trace up in the mid leg. Musculoskeletal: patient has weakness in both lower extremities that is significantly worse from just four weeks ago. 3/5 on the left and 4/5 on the righ. He has difficulty getting up out of the office chair and up onto the table. Also difficulty ambulating. . Peripheral Pulses: Normal. Health Maintenance List DILATED RETINAL EXAM due on 09/09/2022 BP CONTROLLED (<130/80) due on 10/06/2022 COLORECTAL CANCER SCREENING due on 10/13/2022 HBA1C due on 04/11/2023 LUNG CANCER SCREENING due on 08/30/2023 DIABETIC FOOT EXAM due on 09/30/2023 URINE ALBUMIN:CREATININE RATIO due on 10/12/2023 LDL CHOLESTEROL due on 10/12/2023 ANNUAL PCP TEAM CHRONIC DISEASE VISIT due on 11/03/2023 DTAP,TDAP,TD(6 - Td or Tdap) due on 09/23/2029 SPIROMETRY Completed ABDOMINAL AORTIC ANEURYSM SCREENING Completed INFLUENZA Completed ADVANCE DIRECTIVE DISCUSSION Completed DEPRESSION ASSESSMENT Completed SHINGRIX VACCINE Completed COVID-19 VACCINE Completed PNEUMOCOCCAL: 65+ Completed ALPHA-1 ANTITRYPSIN DEFICIENCY SCREENING Discontinued HEPATITIS C SCREENING Discontinued Data reviewed Component Latest Ref Rng & Units 10/12/2022 WBC 3.70 - 11.00 k/uL 4.48 RBC 4.20 - 6.00 m/uL 5.33 Hemoglobin 13.0 - 17.0 g/dL 14.5 Hematocrit 39.0 - 51.0 % 45.3 MCV 80.0 - 100.0 fL 85.0 MCH 26.0 - 34.0 pg 27.2 MCHC 30.5 - 36.0 g/dL 32.0 RDW-CV 11.5 - 15.0 % 15.2 (H) Platelet Count 150 - 400 k/uL 172 MPV 9.0 - 12.7 fL 9.6 Neut% % 76.4 Abs Neut (ANC) 1.45 - 7.50 k/uL 3.42 Lymph% % 15.4 Abs Lymph 1.00 - 4.00 k/uL 0.69 (L) Ramsey% % 6.0 Abs Ramsey <0.87 k/uL 0.27 Eosin% % 0.9 Abs Eosin <0.46 k/uL 0.04 Baso% % 0.2 Abs Baso <0.11 k/uL <0.03 Immature Gran % % 1.1 IMMATURE GRANS (ABS) <0.10 k/uL 0.05 NRBC /100 WBC 0.0 Absolute nRBC <0.01 k/uL <0.01 DTYPE Auto Protein, Total 6.3 - 8.0 g/dL 6.3 Albumin 3.9 - 4.9 g/dL 4.2 Calcium 8.5 - 10.2 mg/dL 9.8 Bilirubin, Total 0.2 - 1.3 mg/dL 0.4 Alkaline Phosphatase 38 - 113 U/L 70 AST 14 - 40 U/L 17 ALT 10 - 54 U/L 17 Glucose 74 - 99 mg/dL 143 (H) BUN 9 - 24 mg/dL 21 Creatinine 0.73 - 1.22 mg/dL 0.99 Sodium 136 - 144 mmol/L 137 Potassium 3.7 - 5.1 mmol/L 4.4 Chloride 97 - 105 mmol/L 99 CO2 22 - 30 mmol/L 26 Anion Gap 9 - 18 mmol/L 12 eGFR >=60 mL/min/1.73m 81 Color Yellow Light Yellow Clarity Clear Clear Glucose, Urine Trace, Negative 4+ (A) Bilirubin, Urine Negative Negative Ketones, Urine Trace, Negative Negative Specific [place], Ur 1.005 - 1.030 1.024 Hemoglobin/Blood,Ur Negative, Trace Negative pH, Urine 5.0 - 8.0 6.0 Protein, Urine Trace, Negative Trace Urobilinogen Negative Negative Nitrites Negative Negative Leukest Negative, 25 Vanda/mL Negative WBC, Urine 0-5 /HPF 0-5 /HPF RBC, Urine 0-3 /HPF 0-3 /HPF Cholesterol, Total <200 mg/dL 110 Triglyceride <150 mg/dL 151 (H) HDL Cholesterol >39 mg/dL 35 (L) Non HDL Cholesterol <130 mg/dL 75 Fasting Time hrs 12 VLDL Cholesterol <30 mg/dL 30 (H) TC:HDL Ratio <5.10 3.14 LDL Cholesterol <100 mg/dL 45 LDL:HDL Ratio <2.54 1.29 Creatinine, Ur Random (UCRR) 20.0 - 300.0 mg/dL 96.4 Albumin, Urine Random mg/L <12.0 Albumin/Creat Ratio <30 mg/g <12 Hemoglobin A1C 4.3 - 5.6 % 6.7 (H) Estimated Average Glucose mg/dL 146 Vitamin B12 232 - 1,245 pg/mL 684 PSA <2.60 ng/mL 0.17 Magnesium 1.7 - 2.3 mg/dL 1.7 A/P ASSESSMENT/PLAN: 1. Bilateral leg edema - ICD9: 782.3, ICD10: R60.0 (primary diagnosis) - improved with Torsemide 5 mg BID 2. Essential hypertension - ICD9: 401.9, ICD10: I10 - good control - Continue current medication(s) - Recommended regular aerobic exercise. - Recommend home blood pressure monitoring, to bring results in on next visit - Goal of BP <130/80 3. Type 2 diabetes mellitus without complication, without long-term current use of insulin (HCC) - ICD9: 250.00, ICD10: E11.9 Reill given for - DULAGLUTIDE 1.5 MG/0.5 ML SUBCUTANEOUS PEN INJECTOR 4. Ex-smoker - ICD9: V15.82, ICD10: Z87.891 Check - US SCREENING FOR AAA 5. Encounter for abdominal aortic aneurysm (AAA) screening - ICD9: V81.2, ICD10: Z13.6 Check - US SCREENING FOR AAA 6. Spinal stenosis, lumbar region, without neurogenic claudication - ICD9: 724.02, ICD10: M48.061 Script for - WALKER ROLLATOR SEAT WITH 6 WHEELS - RED - placed call to Dr. Sue's office to see if we could help get his appt moved up sooner. 7. Weakness of both lower extremities - ICD9: 729.89, ICD10: R29.898 - WALKER ROLLATOR SEAT WITH 6 WHEELS - RED 8. Increased weakness when ambulating - ICD9: 780.79, ICD10: R53.1 - WALKER ROLLATOR SEAT WITH 6 WHEELS - RED 9. At high risk for falls - ICD9: V15.88, ICD10: Z91.81 - WALKER ROLLATOR SEAT WITH 6 WHEELS - RED 10. Vitamin D deficiency - ICD9: 268.9, ICD10: E55.9 Check - VITAMIN D 25 HYDROXY I spent a total of 39 minutes on the date of the service which included preparing to see the patient, [id number] patient care, completing clinical documentation, performing a medically appropriate examination, counseling and educating the patient/family/caregiver and ordering medications, tests, or procedures. Keep future routine appt. Ovidio Vincent MD documented in this encounterSam[facility]03-14-2023 History of Present illness Narrative* Rebecca Hurtado Pss - 11/29/2022 5:07 PM EDT POPULATION HEALTH NAVIGATION OUTREACH Action/FYI Patient due for GENE Patient states he has an outside provider for GENE and has an upcoming appointment. Advised patient to have report sent to PCP. Patient verbalized understanding. Patient Identified by Name and : YES, via phone Outreach Outcome/Action Spoke to patient / parent / legal guardian: No action required (information or reminder only) Did you use a PCP flex slot to schedule this appointment? N/A Reason for Outreach Care Gap or Scheduling/Wellness visits Payer: Payor: [employer] MEDICARE / Plan: [employer] MEDICARE PPO / Product Type: PPO / Care Gap Reviewed:: Diabetic Eye Exam Reminder: Reminder note to check Health Maintenance for items below Health Maintenance items due: DILATED RETINAL EXAM due on 09/09/2022 BP CONTROLLED (<130/80) due on 10/06/2022 COLORECTAL CANCER SCREENING due on 10/13/2022 Navigation Signature: Rebecca Hurtado [facility] November 29, 2022 5:12 PM documented in this encounterSam[facility]03-10-2023 History of Present illness Narrative* Mara Guardado RN - 11/25/2022 11:42 AM EST INSIGHT CDM TELEPHONIC OUTREACH FYI: Pt denies any new or worsening CDM symptoms. Pt currently in [place] until mid November. Pt denies needs, questions, concerns at this time. END OUTREACH Contact made with patient: Yes Patient identified by name and . Discussed care with patient It s nice talking to you again. As a reminder, this is our bi-weekly check-in where I will be asking you questions about your health. This will only take a few minutes of your time. Is this a good time? Yes Symptoms What Chronic Disease(s) does the patient have: COPD Do you check your blood pressures at home? No Do you have new or worse shortness of breath with activity? No Do you have new or worsening cough? No Do you have new or worsening wheezing? No Do you need to use your rescue (Albuterol) inhaler or nebulizer more often than normal? No Are you having any other symptoms that your PCP needs to know about? No Symptoms: Symptom Escalation MACO Education Ordered -: No The patient required an escalation for symptom(s)? No Medications Do you have any questions about taking your medication or which medications you should be on? No Do you need any medication refills at this time, including any of the medications you might take only when needed? No Social We would like to make sure you have what you need so that your basic needs are met- including your personal safety, food, housing, transportation and medications? Would you like to speak with a social work senior engineering team leader to help give you support for any of these needs? No It can be normal to feel anxious or down during a time like this. Would you like to talk to a mental health professional about how you have been feeling? No Closing Thank you for taking the time to talk with me today. We want to work with you to ensure that we arekeeping your medical condition(s) well-controlled and to keep you healthy and out of the doctor's office or hospital. It s also not too late for me to sign you up for automated weekly questionnaires through [employer]. This is an easy way for us to stay connected each week. Are you interested? No, I understand. We can always sign you up in the future if you change your mind. Just as a reminder, will continue to call you every other week to check in on your health. Our calls should take 10-15 minutes or less. Remember, if you have concerns in between our calls, please call your PCP's office right away. Thank you. Enter next patient outreach date for two weeks on the same day of the week as today in the Track PtOutreach and End outreach. documented in this encounterSamaritan [facility]03-09-2023 History of Present illness Narrative* Mara Guardado RN - 11/24/2022 4:40 PM EST INSIGHT [facility] TELEPHONIC OUTREACH FYI: Made call #1 to patient. NA/Left VM. Contact made with patient: No - Left message Hello my name is Mara Guardado RN your Blanket Binder from the [facility] I am calling todayfor your bi-weekly check in. I am sorry I missed your call. I will reach out to you again tomorrow.(if the third call I will reach out to you again next week) Enter next patient outreach date for the following business day using the Track Pt Outreach. End outreach. documented in this [facility] History of Present illness Narrative* Mitchel Jones MD - 11/07/2022 4:59 PM EST Images from the original note were not included. SERVICE DATE: November 07, 2022 CHIEF COMPLAINT: Ronnie Yarbrough is a 72 year old male returning today for follow up of his multiple myeloma INTERVAL HISTORY: Patient is a very pleasant 72-year-old white gentleman who is here with his for oncologic surveillance on multiple myeloma. He was initially treated with combination of Revlimid/Velcade and dexamethasone and with obtained remission underwent stem cell transplant. He had maintenance Revlimid and dexamethasone following that for 18 months. He has been off any treatments and continues with a remission for approximately 5 years Diagnostic Studies: Reviewed CURRENT MEDICATIONS: losartan (COZAAR) 25 mg tablet^Take 1 tablet by mouth once daily.^Disp: 90 tablet^Rfl: 1 Tadalafil (CIALIS) 20 mg tab(s)^Take 1 tablet by mouth once daily. As needed^Disp: 30 tablet^Rfl: 2 dapagliflozin (FARXIGA) 5 mg tablet^Take 1 tablet by mouth once daily. Take one daily in the morning^Disp: 30 tablet^Rfl: 5 torsemide (DEMADEX) 10 mg tablet^Take 1 tablet by mouth twice daily. Take with one 5 mg twice a dayfor total of 15 mg twice a day.^Disp: 60 tablet^Rfl: 5 torsemide (DEMADEX) 5 mg tablet^Take 1 tablet by mouth once daily. Take with one 10 mg twice a day for total of 15 mg twice a day.^Disp: 60 tablet^Rfl: 5 metFORMIN (GLUCOPHAGE) 1,000 mg tablet^Take 1 tablet by mouth twice daily with meals.^Disp: 60 tablet^Rfl: 5 atorvastatin (LIPITOR) 40 mg tablet^Take 1 tablet by mouth once daily.^Disp: 90 tablet^Rfl: 1 omeprazole (PRILOSEC) 40 mg capsule^TAKE ONE CAPSULE BY MOUTH ONCE DAILY ON AN EMPTY STOMACH^Disp: 90 capsule^Rfl: 1 dulaglutide (TRULICITY) 1.5 mg/0.5 mL pen injector^Inject 1.5 mg subcutaneously one time a week. Inject once per week. Discard Pen After^Disp: 4 Each^Rfl: 5 celecoxib (CELEBREX) 200 mg capsule^Take 1 capsule by mouth twice daily.^Disp: 60 capsule^Rfl: 5 xpspjtxtleg-aoyceomhu-ucxdhenj (TRELEGY ELLIPTA) 100-62.5-25 mcg inhalation powder^Inhale 1 Puff asinstructed once daily.^Disp: 1 Each^Rfl: 5 SLOW-MAG 71.5 mg TbEC^take 2 tablets by mouth twice a day^Disp: 120 tablet^Rfl: 3 aspirin, enteric coated (ASPIRIN, ENTERIC COATED) 81 mg EC tablet^Take 1 tablet by mouth once daily.^Disp: 100 tablet^Rfl: 3 Cholecalciferol, Vitamin D3, (VITAMIN D-3) 50 mcg (2,000 unit) cap^Take 1 capsule by mouth once daily.^Disp: 90 capsule^Rfl: 3 terbinafine HCl (LAMISIL) 250 mg tablet^Take 1 tablet by mouth once daily.^Disp: 30 tablet^Rfl: 2 cyanocobalamin (VITAMIN B-12) 1,000 mcg tab^Take 1 tablet by mouth once daily.^Disp: ^Rfl: Calcium-Cholecalciferol, D3, 600 mg-5 mcg (200 unit) cap^Take 1 capsule by mouth once daily.^Disp: ^Rfl: fluticasone (FLONASE) 50 mcg/actuation nasal spray^One spray each nostril before bed.^Disp: 1 Each^Rfl: 5 (Patient not taking: Reported on 09/30/2022) ALLERGIES/INTOLERANCES: ALLERGIES Allergen Reactions Gabapentin Other: See Comments Depression/suicidal ideation ROS: Denies fever night sweats or weight loss Denies numbness tingling or any symptoms of peripheral neuropathy Denies vaso occlusive symptoms or Raynaud's phenomenon No abdominal pain, nausea, vomiting, hematochezia, melena, or significant alteration of bowel habits PHYSICAL EXAM: BP 131/86 Pulse 51 Temp 36.6 C (97.9 F) (Temporal) Ht 175.3 cm (5' 9) Wt 103.2 kg (227 lb 8 oz) BMI 33.6 kg/m2 Body mass index is 33.6 kg/m . ECO No lymphadenopathy or palpable masses DTRs 2+ and symmetrical. No sensory or motor deficits DATA REVIEW: I personally reviewed the patient's data and medical records. PERTINENT LABS: Reviewed PERTINENT IMAGING: Reviewed ASSESSMENT AND Plan Multiple myeloma in complete remission following initial VDR followed by stem cell transplant followed by maintenance Revlimid and dexamethasone. 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 Completely normal kappa/lambda ratio which actually negates the need for urine electrophoresis. No M spike. We will recheck labs in 6 months and with return to visit in 12 months The patient was able to ask questions and these were answered in detail. Mitchel Jones MD cc: Ela Vincent MD documented in this encounterSam[facility]-16-[facility]23 Instructions* Patient Instructions* Ovidio Vincent MD - 11/03/2022 8:28 AM EST Come get non-fasting labs for kidnies and electrolytes on 11/11/2022 or 11/12/2022 documented in this encounterSam[facility]-2023 Nurse Note* Ramu Alanis MA - 11/03/2022 8:15 AM EST 135/81 True BP 134/83 143/74 148/86 120/84 129/78 documented in this encounterSam[facility]23 History of Present illness Narrative* Ovidio Vincent MD - 11/03/2022 8:00 AM EST Chief Complaint Patient presents with: Follow Up: Patient is here for follow up on leg edema HPI Ronnie Yarbrough is a 72 year old male who presents here today for 1 month follow up. At last appt patient c/o increased leg edema and his lasix was discontinued and he was started on Demadex 10 mg twice a day. Echo done 08/08/2022 showed good systolic and diastolic function on the left and normal systolic function on the right. Patient feels the swelling is about the same and not really affected by time of day. He does try towatch the amount of salt in his diet. He recently got low back injections and has noted marked improvement. Past medical history, appointments, medications, allergies reviewed. 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 Day: +12; Engrafted Protocol(s): 3422 1C Preparative regimen: melphalan Mobilization regimen: neupogen and plerixafor Stem cell source: apheresis CD34 cell dose (x10e6/kg): 5.14 Date of transplant: 06/15/2018 Cancer of the skin, 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[facility]) 06/13/2018 --ppx ACV and cipro Inflammatory polyarthropathy ([facility]) Leg DVT (deep venous thromboembolism), acute, left ([facility]) 01/02/2018 --acute DVT gastrocnemius found 12/13/2017 --continue apixaban till platelets <50K, last dose 06/21/2018 Living will on file at physician's office 09/30/2022 DPA: BREN () Low serum vitamin B12 04/22/2021 Lumbar spinal stenosis Medicare annual wellness visit, subsequent 10/06/2021 Medicare part B: Not able to find, Last done: 10/06/2021 Mixed hyperlipidemia 10/31/2006 --will hold atorvastatin d/t interactions with chemotherapy can resume at discharge Multiple myeloma ([facility]) 11/28/2017 Multiple myeloma in remission ([facility]) Obesity 10/01/2012 Obesity, Class I, BMI 30-34.9 10/01/2012 Osteoarthritis of both hands Pancytopenia due to chemotherapy ([facility]) 06/25/2018 --Transfuse PRBC and platelets per protocol --GCSF Peripheral autonomic neuropathy in disorders classified elsewhere 06/07/2005 Pulmonary hypertension, unspecified ([facility]) 10/23/2019 Reflux esophagitis Spinal stenosis, lumbar region, without neurogenic claudication 11/13/2006 Tobacco abuse 12/27/2011 Quit 2013 Type 2 diabetes mellitus without complication, without long-term current use of insulin ([facility]) 04/12/2018 Venous insufficiency, peripheral 01/06/2014 Vitamin D deficiency 12/31/2014 Previous Surgical History PAST SURGICAL HISTORY Procedure Laterality Date ANES ARTHROSCOPIC TOTAL SHOULDER REPLACEMENT Right 01/28/2013 [facility] - complete right shoulder replaceement ARTHRD ANT INTERBODY MIN DSC LUMBAR 2009 ARTHROTOMY W/MENISCUS REPAIR KNEE 1981 RIGHT ARTHROTOMY W/MENISCUS REPAIR KNEE 1982 LEFT ARTHRP KNE CONDYLE&PLATU MEDIAL&LAT COMPARTMENTS Right 2008 Knee replacement, total BACK SURGERY HX COLONOSCOPY FLX DX W/COLLJ SPEC WHEN PFRMD 09/25/2012 normal colonoscopy - 10 year follow up EGD TRANSORAL BIOPSY SINGLE/MULTIPLE 09/25/2012 mild distal esophagitis HAND BILATERAL OP SURGERY 2021 trigger finger/ cyst removal JOINT REPLACEMENT HX Right shoulder HARRIS W/O FACETEC FORAMOT/DSC 09/19 VRT [facility]GM CRV 2007 Laminectomy, cervical PAST SURGICAL HISTORY OF Right 08/23/2021 carpal tunnel release with wrist arthrotomy and synovectomy PAST SURGICAL HISTORY OF Right 08/23/2021 ulnar nerve decompression SKIN BIOPSY HX TONSILLECTOMY HX Family History FAMILY HISTORY Problem Relation Age of Onset None Mother Cancer Father PANCREAS Diabetes Father Diabetes Sister None Brother Diabetes Paternal Grandmother COPD No Family History Asthma No Family History Patient Allergies ALLERGIES Allergen Reactions Gabapentin Other: See Comments Depression/suicidal ideation Current Medications Current Outpatient Medications on File Prior to Visit Medication Sig metFORMIN (GLUCOPHAGE) 1,000 mg tablet Take 1 tablet by mouth twice daily with meals. atorvastatin (LIPITOR) 40 mg tablet Take 1 tablet by mouth once daily. torsemide (DEMADEX) 10 mg tablet Take 1 tablet by mouth twice daily. omeprazole (PRILOSEC) 40 mg capsule TAKE ONE CAPSULE BY MOUTH ONCE DAILY ON AN EMPTY STOMACH dulaglutide (TRULICITY) 1.5 mg/0.5 mL pen injector Inject 1.5 mg subcutaneously one time a week. Inject once per week. Discard Pen After celecoxib (CELEBREX) 200 mg capsule Take 1 capsule by mouth twice daily. gayxpzetotu-yjlbhfacc-exxlezbf (TRELEGY ELLIPTA) 100-62.5-25 mcg inhalation powder Inhale 1 Puff asinstructed once daily. SLOW-MAG 71.5 mg TbEC take 2 tablets by mouth twice a day aspirin, enteric coated (ASPIRIN, ENTERIC COATED) 81 mg EC tablet Take 1 tablet by mouth once daily. losartan (COZAAR) 25 mg tablet Take 1 tablet by mouth once daily. Cholecalciferol, Vitamin D3, (VITAMIN D-3) 50 mcg (2,000 unit) cap Take 1 capsule by mouth once daily. Tadalafil (CIALIS) 20 mg tab(s) Take 1 tablet by mouth once daily. As needed dapagliflozin (FARXIGA) 5 mg tablet Take 1 tablet by mouth once daily. Take one daily in the morning terbinafine HCl (LAMISIL) 250 mg tablet Take 1 tablet by mouth once daily. fluticasone (FLONASE) 50 mcg/actuation nasal spray One spray each nostril before bed. (Patient not taking: Reported on 09/30/2022) cyanocobalamin (VITAMIN B-12) 1,000 mcg tab Take 1 tablet by mouth once daily. Calcium-Cholecalciferol, D3, 600 mg-5 mcg (200 unit) cap Take 1 capsule by mouth once daily. Current Facility-Administered Medications on File Prior to Visit Medication perflutren lipid microspheres 1.3 mL in NaCl (PF) 0.9% 10 mL injection (DEFINITY) sodium chloride 0.9 % (flush) 10 mL (BD POSIFLUSH) Social History Social History Tobacco Use Smoking status: Former Packs/day: 1.00 Years: 41.00 Pack years: 41.00 Types: Pipe, Cigarettes Start date: 1971 Quit date: 12/09/2011 Years since quittin.9 Smokeless tobacco: Never Tobacco comments: 1/4 pack of cigs; pipe smoker. None of either since cessation. No ETS in childhood home. Smoked up to one ppd Vaping Use Vaping Use: Never used Substance Use Topics Alcohol use: Yes Comment: rare Drug use: No Review of Symptoms REVIEW OF SYSTEMS RESPIRATORY: Negative for wheezing, COPD, dyspnea or shortness of breath CARDIOVASCULAR: Negative for chest pain, hypertension, CHF or palpitations. No orthopnea or paroxysmal nocturnal dyspnea. EXAM: BP 135/81 Pulse 75 Resp 16 Wt 104.3 kg (230 lb) BMI 33.24 kg/m General Appearance: Well appearing, alert, in no acute distress, well-hydrated, well nourished. andObese. Lungs: Lungs clear to auscultation. No wheezing, rhonchi, rales.. Heart: RRR without murmur, gallop, or rubs. No ectopy. Extremities: No deformities. Cont to have 1-2+ edema, . Health Maintenance List DILATED RETINAL EXAM due on 09/09/2022 BP CONTROLLED (<130/80) due on 10/06/2022 COLORECTAL CANCER SCREENING due on 10/13/2022 HBA1C due on 04/11/2023 LUNG CANCER SCREENING due on 08/30/2023 DIABETIC FOOT EXAM due on 09/30/2023 ANNUAL PCP TEAM CHRONIC DISEASE VISIT due on 09/30/2023 URINE ALBUMIN:CREATININE RATIO due on 10/12/2023 LDL CHOLESTEROL due on 10/12/2023 DTAP,TDAP,TD(6 - Td or Tdap) due on 09/23/2029 SPIROMETRY Completed ABDOMINAL AORTIC ANEURYSM SCREENING Completed INFLUENZA Completed ADVANCE DIRECTIVE DISCUSSION Completed DEPRESSION ASSESSMENT Completed SHINGRIX VACCINE Completed COVID-19 VACCINE Completed PNEUMOCOCCAL: 65+ Completed ALPHA-1 ANTITRYPSIN DEFICIENCY SCREENING Discontinued HEPATITIS C SCREENING Discontinued Data reviewed A/P ASSESSMENT/PLAN: 1. Bilateral leg edema - ICD9: 782.3, ICD10: R60.0 (primary diagnosis) - will increase the Demadex to 15 mg twice a day. Check BMP in 1-2 weeks 2. Essential hypertension - ICD9: 401.9, ICD10: I10 - good control - Continue current medication(s) - Increase demadex as above. - Recommended regular aerobic exercise. - Recommend home blood pressure monitoring, to bring results in on next visit - Goal of BP Requested Prescriptions Signed Prescriptions Disp Refills losartan (COZAAR) 25 mg tablet 90 tablet 1 Sig: Take 1 tablet by mouth once daily. Tadalafil (CIALIS) 20 mg tab(s) 30 tablet 2 Sig: Take 1 tablet by mouth once daily. As needed dapagliflozin (FARXIGA) 5 mg tablet 30 tablet 5 Sig: Take 1 tablet by mouth once daily. Take one daily in the morning torsemide (DEMADEX) 10 mg tablet 60 tablet 5 Sig: Take 1 tablet by mouth twice daily. Take with one 5 mg twice a day for total of 15 mg twice a day. torsemide (DEMADEX) 5 mg tablet 60 tablet 5 Sig: Take 1 tablet by mouth once daily. Take with one 10 mg twice a day for total of 15 mg twice a day. F/u in about 4 weeks Ovidio Vincent MD documented in this [facility]Sam[facility]23 History of Present illness Narrative* Hayde Ward MD - 10/28/2022 9:30 AM EST Images from the original note were not included. . [facility] [place] Note Patient name: Ronnie Yarbrough PCP: Ovidio Vincent MD CC: COPD HPI: Ronnie Yarbrough 72 year old male former 40 pack year smoker, quitting 2011 with PMH significant for MM s/p BMT, COPD/CB, HTN, HLD, diastolic heart failure, inflammatory polyarthropathy and pulmonarynodules. At [facility] changed inhaled therapy to Trelegy Ellipta with consideration for chronic azithromycin therapy for his chronic bronchitis component if he had persistent symptoms. LDCT chest for cancer screening showed a new lung nodule in left lung 4-6 mm and 2-3 mm in RUL. Today he states that he has been doing better with the Trelegy but. No longer coughing with sputum production throughout theday. No current wheezing or shortness of breath. Developed a typical cold several weeks ago so he has some persistent nasal congestion and drainage. No fevers or chills. No side effects from Trelegy Ellipta. DATA: Labs: Reviewed most recent laboratory tests which is pertinent for no identifiable M protein on serum protein electrophoresis Imaging / Diagnostic Studies: I personally reviewed images of his low-dose chest CT from [facility] compared to his chest CT. Impression described in HPI PAST MEDICAL HISTORY Diagnosis Date Acute bronchitis with chronic obstructive pulmonary disease (COPD) ([facility]) 12/30/2014 Acute on chronic systolic CHF (congestive heart failure) ([facility]) 10/04/2019 Advance directive discussed with patient 09/30/2022 Discussed 09/2022: up to date Allergic rhinitis 03/15/2021 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[facility]) 06/13/2018 Day: +12; Engrafted Protocol(s): 3422 1C Preparative regimen: melphalan Mobilization regimen: neupogen and plerixafor Stem cell source: apheresis CD34 cell dose (x10e6/kg): 5.14 Date of transplant: 06/15/2018 Cancer of the skin, 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[facility]) 06/13/2018 --ppx ACV and cipro Inflammatory polyarthropathy ([facility]) Leg DVT (deep venous thromboembolism), acute, left ([facility]) 01/02/2018 --acute DVT gastrocnemius found 12/13/2017 --continue apixaban till platelets <50K, last dose 06/21/2018 Living will on file at physician's office 09/30/2022 DPA: BREN () Low serum vitamin B12 04/22/2021 Lumbar spinal stenosis Medicare annual wellness visit, subsequent 10/06/2021 Medicare part B: Not able to find, Last done: 10/06/2021 Mixed hyperlipidemia 10/31/2006 --will hold atorvastatin d/t interactions with chemotherapy can resume at discharge Multiple myeloma ([facility]) 11/28/2017 Multiple myeloma in remission ([facility]) Obesity 10/01/2012 Obesity, Class I, BMI 30-34.9 10/01/2012 Osteoarthritis of both hands Pancytopenia due to chemotherapy ([facility]) 06/25/2018 --Transfuse PRBC and platelets per protocol --GCSF Peripheral autonomic neuropathy in disorders classified elsewhere 06/07/2005 Pulmonary hypertension, unspecified ([facility]) 10/23/2019 Reflux esophagitis Spinal stenosis, lumbar region, without neurogenic claudication 11/13/2006 Tobacco abuse 12/27/2011 Quit 2012 Type 2 diabetes mellitus without complication, without long-term current use of insulin ([facility]) 04/12/2018 Venous insufficiency, peripheral 01/06/2014 Vitamin D deficiency 12/31/2014 ALLERGIES Allergen Reactions Gabapentin Other: See Comments Depression/suicidal ideation losartan (COZAAR) 25 mg tablet^Take 1 tablet by mouth once daily.^Disp: 90 tablet^Rfl: 1 atorvastatin (LIPITOR) 40 mg tablet^Take 1 tablet by mouth once daily.^Disp: 90 tablet^Rfl: 1 torsemide (DEMADEX) 10 mg tablet^Take 1 tablet by mouth twice daily.^Disp: 60 tablet^Rfl: 1 omeprazole (PRILOSEC) 40 mg capsule^TAKE ONE CAPSULE BY MOUTH ONCE DAILY ON AN EMPTY STOMACH^Disp: 90 capsule^Rfl: 1 dulaglutide (TRULICITY) 1.5 mg/0.5 mL pen injector^Inject 1.5 mg subcutaneously one time a week. Inject once per week. Discard Pen After^Disp: 4 Each^Rfl: 5 celecoxib (CELEBREX) 200 mg capsule^Take 1 capsule by mouth twice daily.^Disp: 60 capsule^Rfl: 5 metFORMIN (GLUCOPHAGE) 1,000 mg tablet^Take 1 tablet by mouth twice daily with meals.^Disp: 60 tablet^Rfl: 5 ffvsuuepvcs-ntcfcnofw-tomtdfje (TRELEGY ELLIPTA) 100-62.5-25 mcg inhalation powder^Inhale 1 Puff asinstructed once daily.^Disp: 1 Each^Rfl: 5 SLOW-MAG 71.5 mg TbEC^take 2 tablets by mouth twice a day^Disp: 120 tablet^Rfl: 3 aspirin, enteric coated (ASPIRIN, ENTERIC COATED) 81 mg EC tablet^Take 1 tablet by mouth once daily.^Disp: 100 tablet^Rfl: 3 Cholecalciferol, Vitamin D3, (VITAMIN D-3) 50 mcg (2,000 unit) cap^Take 1 capsule by mouth once daily.^Disp: 90 capsule^Rfl: 3 Tadalafil (CIALIS) 20 mg tab(s)^Take 1 tablet by mouth once daily. As needed^Disp: 30 tablet^Rfl: 2 dapagliflozin (FARXIGA) 5 mg tablet^Take 1 tablet by mouth once daily. Take one daily in the morning^Disp: 30 tablet^Rfl: 5 terbinafine HCl (LAMISIL) 250 mg tablet^Take 1 tablet by mouth once daily.^Disp: 30 tablet^Rfl: 2 fluticasone (FLONASE) 50 mcg/actuation nasal spray^One spray each nostril before bed.^Disp: 1 Each^Rfl: 5 (Patient not taking: Reported on 09/30/2022) cyanocobalamin (VITAMIN B-12) 1,000 mcg tab^Take 1 tablet by mouth once daily.^Disp: ^Rfl: Calcium-Cholecalciferol, D3, 600 mg-5 mcg (200 unit) cap^Take 1 capsule by mouth once daily.^Disp: ^Rfl: Social History Tobacco Use Smoking status: Former Packs/day: 1.00 Years: 41.00 Pack years: 41.00 Types: Pipe, Cigarettes Start date: 1971 Quit date: 12/09/2011 Years since quittin.8 Smokeless tobacco: Never Tobacco comments: 1/4 pack of cigs; pipe smoker. None of either since cessation. No ETS in childhood home. Smoked up to one ppd Vaping Use Vaping Use: Never used Substance Use Topics Alcohol use: Yes Comment: rare Drug use: No PMH, Social history, family history and surgical history reviewed and updated in EMR REVIEW OF SYSTEMS: CONSTITUTIONAL: No fevers, chills, nightsweats, unintended weight loss HEENT: Some nasal congestion/sinus symptoms, drainage CARDIOVASCULAR: No chest pain, dyspnea, palpitations, orthopnea, PND. Chronic edema PULM: See HPI. GI: No dysphagia/odynophagia, problematic reflux MUSC-SKEL: Polyarticular joint pain improved with Mobic. Recent back trauma pending vertebroplasty INTEGUMENTARY: No new skin changes or rashes PHYSICAL EXAMINATION: Wt 230 lb (104.3kg) BP 142/78, pulse 76, RR 15, SPO2 98% on room air General Appearance: Age-appropriate male, NAD Skin: Skin color, texture, turgor normal, no suspicious rashes or lesions. Head: Normocephalic, no masses, lesions, tenderness or abnormalities. Eyes: Sclera, conjunctiva normal Oropharynx: No oral lesions, no thrush Neck: No JVD, no adenopathy Lungs: Not labored, normal to percussion, no wheezes or crackles Heart: Irregular rhythm, no murmurs Extremities: 3+ pitting lower extremity edema, no clubbing Musculoskeletal: Arthritis changes no active synovitis Assessment/Plan: 1. COPD with chronic bronchitis -Continue Trelegy Ellipta and abstinence from smoking -No need for suppressive azithromycin therapy at this time 2. Lung nodules -Repeat CT 6 months 3. Former cigarette smoker -Former [id number] smoker having quit in 2012 -Lung cancer screening Hayde Ward MD [facility] [place] documented in this encounterSam[facility]02-06-2023 Miscellaneous Notes* Telephone Encounter - Nargis Fox Ma - 10/24/2022 10:58 AM EST Pt should have refills remaining at pharmacy. Metformin refilled on 08/29/22 #60 with 5 refills. Ptnotified via [employer]. Nargis Fox Ma documented in this encounterSam[facility]02-06-2023 Miscellaneous Notes* Telephone Encounter - Ramu Alanis MA - 10/24/2022 8:36 AM EST Patient notified voiced understanding. Patient said he was getting better. If things change he would go to express care. Ramu Alanis MA * Telephone Encounter - Ovidio Vincent MD - 10/21/2022 7:47 PM EST Let patient know he will need to be seen. The difference between him and was she had symptoms at last visit and has not improved. He had no such symptoms at his appt. * Telephone Encounter - Conrad Dickens RN - 10/21/2022 9:34 AM EST Patient reports he has sinus chest congestion with constant yellow cough. No fever. Reports he lastsaw pcp on 09-30-22, and asking if you could send an Rx to [facility], like you did for his ? Please advise patient. [facility] Miscellaneous Notes* Telephone Encounter - Ramu Alanis MA - 10/13/2022 4:51 PM EST Spoke with patient to verify he sees Dr. Reza. Ramu Alanis MA documented in this [facility] Miscellaneous Notes* Telephone Encounter - Ramu Alanis MA - 10/13/2022 4:50 PM EST Patient notified and voiced understanding. Ramu Alanis MA * Telephone Encounter - Ovidio Vincent MD - 10/13/2022 4:28 PM EST Let patient know his urine tests, blood count, Mg, lipid panel, prostate test, A1c, electrolytes, liver functions and kidney functions were all ok. His HDL was slightly low and increase physical activity can help increase. documented in [facility] Miscellaneous Notes* Telephone Encounter - Ovidio Vincent MD - 10/13/2022 1:07 PM EST Noted. * Telephone Encounter - Ramu Alanis MA - 10/13/2022 11:51 AM EST Contacted [facility] and their chart reads that patient received Shingrix 02/01/21; 04/07/21; 06/14/22 09/05/22. Ramu Alanis MA documented [facility] this [facility]01[facility]23 Miscellaneous Notes* Telephone Encounter - Ramu Alanis MA - 10/06/2022 8:10 AM EST Patient notified and voiced understanding. Patient had not heard from Dr. Paul's office. Records show we faxed everything on 09/30/2022. Atthat time xray results were still pending. Gave patient the number and instructed patient to reach out to their office. Faxed those today. Ramu Alanis MA * Telephone Encounter - Ovidio Vincent MD - 10/05/2022 8:54 PM EST Let patient know lumbar x-ray showed no acute issues or issues with his hardware. documented in this [facility]Sam[facility]01[facility]23 History of Present illness Narrative* Xochilt Adamson RT(R) - 10/03/2022 8:10 AM EST Radiology Service Progress Note PATIENT NAME: Ronnie Yarbrough DATE OF SERVICE: October 03, 2022 TIME: 8:08 AM PATIENT IDENTITY VERIFICATION COMPLETED USING TWO (2) IDENTIFIERS: Name and Date of confirmedby patient verbally. FALL SCREENING: Has the patient had 2 falls in the last year or 1 fall with injury or currently using an Ambulatory Assistive Device (Walker, Cane, Wheelchair, Crutches, etc.)? No PATIENT GENDER DATA: Male PATIENT RELEVANT IMPLANT DATA REVIEWED: Yes RADIOLOGY DEPARTMENT: General X-ray: Exam(s) Completed: Spine X-Ray(s): Lumbar AP / LAT / L5-S1 / OBL PERIPHERAL IV DATA: Not applicable SIGNED BY: RT Kenney(R) October 03, 2022 8:08 AM documented in this encounterSam[facility]01[facility]13-2023 Miscellaneous Notes* Telephone Encounter - Ramu Alanis MA - 09/30/2022 2:17 PM EST Sent Consult Office referral Office visits Insurance card Demo Waiting on x-ray results. Ramu Alanis MA ' documented in this encounterSam[facility]01-13-[facility]23 History of Present illness Narrative* [place] - 09/30/2022 10:42 AM EST POPULATION HEALTH NAVIGATION OUTREACH Action/I [place] Support: Called pt to schedule an appt in Pain Management. Lvm for pt to call [phone] for scheduling. Pt identified by name and : NO Outreach Outcome/Action Unable to reach patient: Left message Did you use a PCP flex slot to schedule this appointment? No Reason for Outreach Care Gap or Scheduling/Wellness visits Payer: Payor: [employer] MEDICARE / Plan: [employer] MEDICARE PPO / Product Type: PPO / Care Gap Reviewed:: Specialty Scheduling Reminder: Reminder note to check Health Maintenance for items below Health Maintenance items due: DILATED RETINAL EXAM due on 09/09/2022 COLORECTAL CANCER SCREENING due on 09/25/2022 URINE ALBUMIN:CREATININE RATIO due on 10/07/2022 Navigation Signature: [place] September 30, 2022 10:42 AM documented in this encounterSam[facility]01-13-2023 Nurse Note* Ramu Alanis MA - 09/30/2022 9:16 AM EST Faxed request to [facility] for most currently exam. Faxed referral request to Dr. Scherer. Ramu Alanis MA documented in this encounterSam[facility]01[facility]23 History of Present illness Narrative* Ovidio Vincent MD - 09/30/2022 8:00 AM EST Images from the original note were not included. 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[facility]) 06/13/2018 --ppx ACV and cipro Inflammatory polyarthropathy ([facility]) Leg DVT (deep venous thromboembolism), acute, left ([facility]) 01/02/2018 --acute DVT gastrocnemius found 12/13/2017 --continue apixaban till platelets <50K, last dose 06/21/2018 Low serum vitamin B12 04/22/2021 Lumbar spinal stenosis Mixed hyperlipidemia 10/31/2006 --will hold atorvastatin d/t interactions with chemotherapy can resume at discharge Multiple myeloma ([facility]) 11/28/2017 Multiple myeloma in remission ([facility]) Obesity 10/01/2012 Osteoarthritis of both hands Osteoarthrosis, unspecified whether generalized or localized, other specified sites Pancytopenia due to chemotherapy ([facility]) 06/25/2018 --Transfuse PRBC and platelets per protocol --GCSF Peripheral autonomic neuropathy in disorders classified elsewhere 06/07/2005 Pulmonary hypertension, unspecified ([facility]) 10/23/2019 Reflux esophagitis Spinal stenosis, lumbar region, without neurogenic claudication 11/13/2006 Tobacco abuse 12/27/2011 Quit 2013 Type 2 diabetes mellitus without complication, without long-term current use of insulin ([facility]) 04/12/2018 Venous (peripheral) insufficiency Venous insufficiency, peripheral 01/06/2014 Vitamin D deficiency 12/31/2014 PAST SURGICAL HISTORY PAST SURGICAL HISTORY Procedure Laterality Date ANES ARTHROSCOPIC TOTAL SHOULDER REPLACEMENT Right 01/28/2013 [facility] - complete right shoulder replaceement ARTHRD ANT INTERBODY MIN DSC LUMBAR 2009 ARTHROTOMY W/MENISCUS REPAIR KNEE 1981 RIGHT ARTHROTOMY W/MENISCUS REPAIR KNEE 1982 LEFT ARTHRP KNE CONDYLE&PLATU MEDIAL&LAT COMPARTMENTS Right 2007 Knee replacement, total COLONOSCOPY FLX DX W/COLLJ SPEC WHEN PFRMD 09/25/2012 normal colonoscopy - 10 year follow up EGD TRANSORAL BIOPSY SINGLE/MULTIPLE 09/25/2012 mild distal esophagitis HARRIS W/O FACETEC FORAMOT/DSC 1/2 VRT SGM CRV 2008 Laminectomy, cervical PAST SURGICAL HISTORY OF Right 08/23/2021 carpal tunnel release with wrist arthrotomy and synovectomy PAST SURGICAL HISTORY OF Right 08/23/2021 ulnar nerve decompression TONSILLECTOMY PRIMARY/SECONDARY AGE 12/1985 Tonsillectomy ALLERGIES: Gabapentin Medications reviewed: Yes FAMILY HISTORY FAMILY HISTORY Problem Relation Age of Onset None Mother Cancer Father PANCREAS Diabetes Father Diabetes Sister None Brother Diabetes Paternal Grandmother COPD No Family History Asthma No Family History SOCIAL HISTORY: SOCIAL HISTORY Social History Tobacco Use Smoking status: Former Smoker Packs/day: 0.25 Years: 41.00 Pack years: 10.25 Types: Pipe Start date: 1971 Quit date: 12/09/2011 Years since quittin.8 Smokeless tobacco: Never Used Tobacco comment: 09/21 pack of cigs; pipe smoker. None of either since cessation. No ETS in childhoodhome. Vaping Use Vaping Use: Never used Substance Use Topics Alcohol use: Yes Comment: rare Drug use: No Ronnie works out regularly 7 times per week with walking and light weights. He watches his diet for sodium, low fat and low cholesterol all of the time. List of current specialists seen: Dr. Alvarez, (Hematology) Dr. Hayde Ward, (Pulm) End of Live Planning discussed including patients advanced directive wishes: Yes I am willing to follow Ronnie's advanced directives. PHQ-2 / Depression screen Depression Screening 07/10/2021 04/23/2022 07/04/2022 09/30/2022 PHQ-2 Score 0 0 0 0 Depression screening tool completed and reviewed. Based on score and interview, patient is not at risk for depression. Screening tool discussed with patient, and I recommended no further interventionat this time. Functional Ability/Safety Screen 1. Was the patient's timed Up and Go test unsteady or longer than 30 seconds? No 2. Does the patient need help with the phone, transportation, shopping,preparing meals, housework, laundry, medications or managing money? No 3. Does your home have rugs in the hallway, lack of grab bars in the bathroom, lack of handrails onthe stairs or have poor lighting? No Hearing Evaluation: hard of hearing and wears hearing aids PHYSICAL EXAM BP 156/82 (BP Site: Left Arm, BP Position: Sitting, BP Cuff Size: Regular Adult) Pulse 68 Resp 16 Ht 177.2 cm (5' 9.75) Wt 103 kg (227 lb) BMI 32.81 kg/m Alert and oriented X 3: YES Body mass index is 32.81 kg/m . Visual acuity: seeing optho See below ASSESSMENT/PLAN: 72 year old male The following prevention plan was discussed during the office visit and provided to the patient: See below Ovidio Vincent MD Chief Complaint Patient presents with: Medicare Wellness Exam HPI Ronnie Yarbrough is a 72 year old male who presents here today for Medicare Annual Visit. Patient with hx of DM2, HTN, HLP, COPD, pulm HTN, GERD, multiple myeloma in remission, neuropathy, former smoker, polyarthropathy and those as reviewed/updated below. For the mots part he has been doing well. He has been getting increasing pain in his lower back andhas known Hx of lumbar stenosis. Denies radiculopathy and no neurogenic claudication with ambulation. Back in Nov was on a mission and had been putting in windows and his sugar got low and when he wentto sit down he twisted his back and he has been having the increased pain since. Pain has been constant and worsens with walking. Past medical history, appointments, medications, allergies reviewed. 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 Day: +12; Engrafted Protocol(s): 3422 1C Preparative regimen: melphalan Mobilization regimen: neupogen and plerixafor Stem cell source: apheresis CD34 cell dose (x10e6/kg): 5.14 Date of transplant: 06/15/2018 Cancer of the skin, 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[facility]) 06/13/2018 --ppx ACV and cipro Inflammatory polyarthropathy ([facility]) Leg DVT (deep venous thromboembolism), acute, left ([facility]) 01/02/2018 --acute DVT gastrocnemius found 12/13/2017 --continue apixaban till platelets <50K, last dose 06/21/2018 Low serum vitamin B12 04/22/2021 Lumbar spinal stenosis Medicare annual wellness visit, subsequent 10/06/2021 Medicare part B: Not able to find, Last done: 10/06/2021 Mixed hyperlipidemia 10/31/2006 --will hold atorvastatin d/t interactions with chemotherapy can resume at discharge Multiple myeloma ([facility]) 11/28/2017 Multiple myeloma in remission ([facility]) Obesity 10/01/2012 Osteoarthritis of both hands Pancytopenia due to chemotherapy ([facility]) 06/25/2018 --Transfuse PRBC and platelets per protocol --GCSF Peripheral autonomic neuropathy in disorders classified elsewhere 06/07/2005 Pulmonary hypertension, unspecified ([facility]) 10/23/2019 Reflux esophagitis Spinal stenosis, lumbar region, without neurogenic claudication 11/13/2006 Tobacco abuse 12/27/2011 Quit 2013 Type 2 diabetes mellitus without complication, without long-term current use of insulin ([facility]) 04/12/2018 Venous insufficiency, peripheral 01/06/2014 Vitamin D deficiency 12/31/2014 Previous Surgical History PAST SURGICAL HISTORY Procedure Laterality Date ANES ARTHROSCOPIC TOTAL SHOULDER REPLACEMENT Right 01/28/2013 [facility] - complete right shoulder replaceement ARTHRD ANT INTERBODY MIN DSC LUMBAR 2009 ARTHROTOMY W/MENISCUS REPAIR KNEE 1981 RIGHT ARTHROTOMY W/MENISCUS REPAIR KNEE 1982 LEFT ARTHRP KNE CONDYLE&PLATU MEDIAL&LAT COMPARTMENTS Right 2007 Knee replacement, total BACK SURGERY HX COLONOSCOPY FLX DX W/COLLJ SPEC WHEN PFRMD 09/25/2012 normal colonoscopy - 10 year follow up EGD TRANSORAL BIOPSY SINGLE/MULTIPLE 09/25/2012 mild distal esophagitis HAND BILATERAL OP SURGERY 2021 trigger finger/ cyst removal JOINT REPLACEMENT HX Right shoulder HARRIS W/O FACETEC FORAMOT/DSC 1/2 VRT SGM CRV 2008 Laminectomy, cervical PAST SURGICAL HISTORY OF Right 08/23/2021 carpal tunnel release with wrist arthrotomy and synovectomy PAST SURGICAL HISTORY OF Right 08/23/2021 ulnar nerve decompression SKIN BIOPSY HX TONSILLECTOMY HX Family History FAMILY HISTORY Problem Relation Age of Onset None Mother Cancer Father PANCREAS Diabetes Father Diabetes Sister None Brother Diabetes Paternal Grandmother COPD No Family History Asthma No Family History Patient Allergies ALLERGIES Allergen Reactions Gabapentin Other: See Comments Depression/suicidal ideation Current Medications Current Outpatient Medications on File Prior to Visit Medication Sig omeprazole (PRILOSEC) 40 mg capsule TAKE ONE CAPSULE BY MOUTH ONCE DAILY ON AN EMPTY STOMACH dulaglutide (TRULICITY) 1.5 mg/0.5 mL pen injector Inject 1.5 mg subcutaneously one time a week. Inject once per week. Discard Pen After celecoxib (CELEBREX) 200 mg capsule Take 1 capsule by mouth twice daily. metFORMIN (GLUCOPHAGE) 1,000 mg tablet Take 1 tablet by mouth twice daily with meals. xwmufxadrwi-pgjuqfsyy-xtltsbcs (TRELEGY ELLIPTA) 100-62.5-25 mcg inhalation powder Inhale 1 Puff asinstructed once daily. SLOW-MAG 71.5 mg TbEC take 2 tablets by mouth twice a day aspirin, enteric coated (ASPIRIN, ENTERIC COATED) 81 mg EC tablet Take 1 tablet by mouth once daily. losartan (COZAAR) 25 mg tablet Take 1 tablet by mouth once daily. (Patient not taking: Reported on 08/08/2022) Cholecalciferol, Vitamin D3, (VITAMIN D-3) 50 mcg (2,000 unit) cap Take 1 capsule by mouth once daily. Tadalafil (CIALIS) 20 mg tab(s) Take 1 tablet by mouth once daily. As needed dapagliflozin (FARXIGA) 5 mg tablet Take 1 tablet by mouth once daily. Take one daily in the morning furosemide (LASIX) 40 mg tablet Take 1 tablet by mouth twice daily. atorvastatin (LIPITOR) 40 mg tablet take 1 tablet by mouth once daily terbinafine HCl (LAMISIL) 250 mg tablet Take 1 tablet by mouth once daily. urea (CARMOL) 40 % Apply to affected area once daily. fluticasone (FLONASE) 50 mcg/actuation nasal spray One spray each nostril before bed. mometasone-formoterol (DULERA) 100-5 mcg/actuation inhaler Inhale 2 Puffs as instructed twice daily. cyanocobalamin (VITAMIN B-12) 1,000 mcg tab Take 1 tablet by mouth once daily. leflunomide (ARAVA) 10 mg tablet Take 1 tablet by mouth once daily. Prescribed by Dr. Oliva (Patient not taking: Reported on 08/08/2022) Calcium-Cholecalciferol, D3, 600 mg-5 mcg (200 unit) cap Take 1 capsule by mouth once daily. Current Facility-Administered Medications on File Prior to Visit Medication perflutren lipid microspheres 1.3 mL in NaCl (PF) 0.9% 10 mL injection (DEFINITY) sodium chloride 0.9 % (flush) 10 mL (BD POSIFLUSH) perflutren lipid microspheres 1.3 mL in NaCl (PF) 0.9% 10 mL injection (DEFINITY) sodium chloride 0.9 % (flush) 10 mL (BD POSIFLUSH) Social History Social History Tobacco Use Smoking status: Former Packs/day: 1.00 Years: 41.00 Pack years: 41.00 Types: Pipe, Cigarettes Start date: 1971 Quit date: 12/09/2011 Years since quittin.8 Smokeless tobacco: Never Tobacco comments: 1/4 pack of cigs; pipe smoker. None of either since cessation. No ETS in childhood home. Smoked up to one ppd Vaping Use Vaping Use: Never used Substance Use Topics Alcohol use: Yes Comment: rare Drug use: No Review of Symptoms REVIEW OF SYSTEMS GENERAL: No weight loss, malaise or fevers HEENT: Negative for frequent or significant headaches, No changes in hearing or vision, no nose bleeds or other nasal problems NECK: Negative for lumps, goiter, pain and significant neck swelling RESPIRATORY: Negative for cough, hemoptysis, increased wheezing, COPD, dyspnea or shortness of breath CARDIOVASCULAR: Negative for chest pain, increased leg swelling, hypertension, CHF or palpitations GI: No nausea, vomiting, or diarrhea, No heartburn or reflux symptoms, and no blood : No history of dysuria, blood MUSCULOSKELETAL: see HPI otherwise his typical joint pains. SKIN: Negative for lesions, rash, and itching PSYCH: Negative for sleep disturbance, mood disorder and recent psychosocial stressors HEMATOLOGY/LYMPHOLOGY: Negative for prolonged bleeding, bruising easily or swollen nodes ENDOCRINE: Negative for cold or heat intolerance, polyuria, polydipsia and goiter NEURO: No history of headaches, syncope, paralysis, seizures or tremors. No saddle anesthesia. No loss of bowel control or difficulty starting urination. EXAM: BP 156/82 (BP Site: Left Arm, BP Position: Sitting, BP Cuff Size: Regular Adult) Pulse 68 Resp 16 Ht 177.2 cm (5' 9.75) Wt 103 kg (227 lb) BMI 32.81 kg/m BP 134/68 Pulse 68 Resp 16 Ht 177.2 cm (5' 9.75) Wt 103 kg (227 lb) BMI 32.81 kg/m General Appearance: Well appearing, alert, in no acute distress, well-hydrated, well nourished.. Skin: Skin color, texture, turgor normal, no suspicious rashes or lesions. Head: Normocephalic, no masses, lesions, tenderness or abnormalities. Eyes: Anicteric sclera. Pupils are equally round and reactive to light. Extraocular movements are intact. . Ears: External ears, TM's normal, canals clear. Neck: Supple, no adenopathy; thyroid symmetric, normal size, no bruits. Lungs: Lungs clear to auscultation. No wheezing, rhonchi, rales.. Heart: RRR without murmur, gallop, or rubs. No ectopy. Abdomen: Normal abdominal exam, Abdomen soft, non-tender. Bowel sounds normal. No masses, organomegaly. Extremities: No deformities, skin discoloration, clubbing or cyanosis. Good capillary refill. Has his chronic 1-2+ pitting edema with no skin break down.. Musculoskeletal: Muscular strength intact, No joint swelling, deformity. Has low back pain with getting up from sitting and getting onto the table. SLR was normal. Peripheral Pulses: Normal. Neurologic: Gait slow and steady due to low back pain.. Reflexes normal and symmetric. Sensation tolight touch and crainal nerves 2-12 intact.. Genitalia: Normal, Penis normal. No urethral discharge. Scrotum normal to palpation. No hernia.. Rectal: Normal exam. Prostate enlarged but smooth firm capsule. Diabetic Foot Exam: Feet: Shoes and socks removed, normal distal pulses, vibratory exam within normal limits, calluses noted bilaterally, and has diminished monofilament sensation on big toe left side. Skin: warm and dry Vascular Pulses: Normal SEMMES-TOM MONOFILAMENT TESTING Left Foot Right Foot Dorsal Surface Intact Dorsal Surface Intact Plantar Surface Diminished 1/5 sites Plantar Surface Intact Health Maintenance List ALPHA-1 ANTITRYPSIN DEFICIENCY SCREENING Never done LUNG CANCER SCREENING due on 10/22/2020 ADVANCE DIRECTIVE DISCUSSION Never done DEPRESSION ASSESSMENT due on 09/18/2022 DILATED RETINAL EXAM due on 09/09/2022 COLORECTAL CANCER SCREENING due on 09/25/2022 DIABETIC FOOT EXAM due on 10/06/2022 URINE ALBUMIN:CREATININE RATIO due on 10/07/2022 BP CONTROLLED (<130/80) due on 10/06/2022 HBA1C due on 10/19/2022 LDL CHOLESTEROL due on 04/18/2023 ANNUAL PCP TEAM CHRONIC DISEASE VISIT due on 07/04/2023 DTAP,TDAP,TD(6 - Td or Tdap) due on 09/23/2029 SPIROMETRY Completed ABDOMINAL AORTIC ANEURYSM SCREENING Completed INFLUENZA Completed SHINGRIX VACCINE Completed COVID-19 VACCINE Completed PNEUMOCOCCAL: 65+ Completed HEPATITIS C SCREENING Discontinued Data reviewed Component Latest Ref Rng & Units 10/05/2021 10/07/2021 04/18/2022 WBC 3.70 - 11.00 k/uL 4.60 4.64 RBC 4.20 - 6.00 m/uL 5.05 4.87 Hemoglobin 13.0 - 17.0 g/dL 15.3 14.2 Hematocrit 39.0 - 51.0 % 46.0 44.0 MCV 80.0 - 100.0 fL 91.1 90.3 MCH 26.0 - 34.0 pg 30.3 29.2 MCHC 30.5 - 36.0 g/dL 33.3 32.3 RDW-CV 11.5 - 15.0 % 15.2 (H) 14.5 Platelet Count 150 - 400 k/uL 199 161 MPV 9.0 - 12.7 fL 9.0 9.6 Neut% % 74.8 76.8 Abs Neut (ANC) 1.45 - 7.50 k/uL 3.44 3.56 Lymph% % 15.2 13.1 Abs Lymph 1.00 - 4.00 k/uL 0.70 (L) 0.61 (L) Ramsey% % 8.5 8.4 Abs Ramsey <0.87 k/uL 0.39 0.39 Eosin% % 1.1 0.9 Abs Eosin <0.46 k/uL 0.05 0.04 Baso% % 0.4 0.2 Abs Baso <0.11 k/uL <0.03 <0.03 Immature Gran % % 0.6 IMMATURE GRANS (ABS) <0.10 k/uL 0.03 NRBC /100 WBC 0.0 Absolute nRBC <0.01 k/uL <0.01 <0.01 DTYPE Auto Nucleated Reds 0 /100 WBC 0.0 Diff Type Auto Diff Protein, Total 6.3 - 8.0 g/dL 6.1 (L) 5.8 (L) Albumin 3.9 - 4.9 g/dL 4.2 3.9 Calcium 8.5 - 10.2 mg/dL 9.1 8.8 Bilirubin, Total 0.2 - 1.3 mg/dL 0.5 0.5 Alkaline Phosphatase 38 - 113 U/L 62 67 AST 14 - 40 U/L 19 10 (L) Glucose 74 - 99 mg/dL 118 (H) 158 (H) BUN 9 - 24 mg/dL 23 21 Creatinine 0.73 - 1.22 mg/dL 1.03 0.99 Sodium 136 - 144 mmol/L 137 138 Potassium 3.7 - 5.1 mmol/L 3.9 4.2 Chloride 97 - 105 mmol/L 98 102 CO2 22 - 30 mmol/L 23 22 Anion Gap 9 - 18 mmol/L 16 14 ALT 10 - 54 U/L 17 10 eGFR- >60 eGFR-All Other Races . >60 Color Yellow Yellow Clarity Clear Clear Glucose, Urine Negative mg/dL 3+ (A) Bilirubin, Urine Negative Negative Ketones, Urine Negative Negative Specific [place], Ur 1.005 - 1.030 1.028 Hemoglobin/Blood,Ur Negative Negative pH, Urine 5.0 - 8.0 6.0 Protein, Urine Negative Negative Urobilinogen Negative E.U./dL 1+ (A) Nitrites Negative Negative Leukest Negative Negative Comment SEE COMMENT Urine James Comment SEE COMMENT WBC, Urine 0 - 5 /HPF 0-5 RBC, Urine 0 - 3 /HPF 0-3 Epithelial Cells /HPF SEE COMMENT eGFR >=60 mL/min/1.73m 82 Total Cholesterol, Nonfasting <200 mg/dL 138 129 Triglycerides, Nonfasting <150 mg/dL 159 (H) 194 (H) HDL Cholesterol, Nonfasting >39 mg/dL 40 35 (L) LDL Cholesterol, Nonfasting <100 mg/dL 66 55 Non HDL Cholesterol, Nonfasting <130 mg/dL 98 94 VLDL Cholesterol, Nonfasting <30 mg/dL 32 (H) 39 (H) Total Chol/HDL Ratio, Nonfasting <5.10 mg/dL 3.45 3.69 LDL/HDL Ratio, Nonfasting <2.54 mg/dL 1.65 1.57 Creatinine, Ur Random (UCRR) 20 - 300 mg/dL 98.1 Albumin, Urine Random mg/L <12.0 Albumin/Creat Ratio <30 mg/g Not calculated Hemoglobin A1C 4.3 - 5.6 % 6.7 (H) 6.3 (H) Estimated Average Glucose mg/dL 146 134 Uric Acid 4.0 - 8.1 mg/dL 3.3 (L) Vitamin B12 232-1,245 pg/mL 206 (L) 201 (L) Magnesium 1.7 - 2.3 mg/dL 1.6 (L) A/P ASSESSMENT/PLAN: 1. Medicare annual wellness visit, subsequent - ICD9: V70.0, ICD10: Z00.00 (primary diagnosis) - Counseled on healthy diet and regular exercise - Discussed need for and benefit of weight loss. BMI 32.80 kg/(m^2) - Follow up for annual exam in one year 2. Type 2 diabetes mellitus without complication, without long-term current use of insulin (HCC) - ICD9: 250.00, ICD10: E11.9 - will await labs to see if changes needed. - Continue current medications - Encouraged regular aerobic exercise and weight loss - BP goal of <130/80 - LDL goal of <100 Check - ALBUMIN/CREAT RATIO RND UR - COMP METABOLIC PANEL - HGB A1C - URINALYSIS, WITH MICROSCOPIC - LIPID PANEL BASIC - CBC + DIFF 3. Diabetic eye exam (HCC) - ICD9: V72.0, 250.00, ICD10: Z01.00, E11.9 - will get up dated report. 4. Essential hypertension - ICD9: 401.9, ICD10: I10 - good control - Continue current medication(s) - Recommended regular aerobic exercise. - Recommend home blood pressure monitoring, to bring results in on next visit - Goal of BP <130/80 - COMP METABOLIC PANEL - URINALYSIS, WITH MICROSCOPIC - LIPID PANEL BASIC 5. Mixed hyperlipidemia - ICD9: 272.2, ICD10: E78.2 - to be determined upon return of lab results - Encouraged following a low fat, low cholesterol diet. - Discussed the benefits of regular aerobic exercise and weight loss. - Encouraged following a low carbohydrate, healthy oil intake diet. - Continue current therapy. - COMP METABOLIC PANEL - URINALYSIS, WITH MICROSCOPIC - LIPID PANEL BASIC 6. Chronic obstructive pulmonary disease, unspecified COPD type ([facility]) - ICD9: 496, ICD10: J44.9 - management per Pulm 7. Pulmonary hypertension, unspecified ([facility]) - ICD9: 416.8, ICD10: I27.20 - as per #6 8. Peripheral autonomic neuropathy in disorders classified elsewhere - ICD9: 337.1, ICD10: G99.0 - clinically stable. 9. Multiple myeloma in remission ([facility]) - ICD9: 203.01, ICD10: C90.01 - management per Heme/Onc 10. Multiple myeloma, remission status unspecified ([facility]) - ICD9: 203.00, ICD10: C90.00 - as per #9 11. Pancytopenia due to chemotherapy ([facility]) - ICD9: 284.11, ICD10: D61.810 - as per #9 - CBC + DIFF 12. 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[facility]) - ICD9: V42.82, ICD10: Z94.84 - as per #9 13. Gastroesophageal reflux disease, unspecified whether esophagitis present - ICD9: 530.81, ICD10:K21.9 - Continue treatment with Prilosec 40 mg QD - VITAMIN B12 BLOOD - MAGNESIUM BLD 14. Obesity, Class I, BMI 30-34.9 - ICD9: 278.00, ICD10: E66.9 Weight increasing - Behavioral intervention 15. Low serum vitamin B12 - ICD9: 266.2, ICD10: E53.8 Check - VITAMIN B12 BLOOD 16. Hypomagnesemia - ICD9: 275.2, ICD10: E83.42 Check - MAGNESIUM BLD 17. Inflammatory polyarthropathy (HCC) - ICD9: 714.9, ICD10: M06.4 - management per Rheum 18. Spinal stenosis, lumbar region, without neurogenic claudication - ICD9: 724.02, ICD10: M48.061 - XR LUMBAR PARS DEFECT 4V AP/LAT/BOTH OBL - CONSULT TO PAIN MGT: Dr. Scherer 19. Living will on file at physician's office - ICD9: V49.89, ICD10: Z78.9 - up to date. 20. Advance directive discussed with patient - ICD9: V65.49, ICD10: Z71.89 Up to date 21. Screening for colon cancer - ICD9: V76.51, ICD10: Z12.11 Check - FECAL OCCULT BLOOD TEST 22. Foot callus - ICD9: 700, ICD10: L84 - discussed care. 23. Prostate disorder - ICD9: 602.9, ICD10: N42.9 Check - PSA/PROSTSPECAG DIAG 24. Medication management - ICD9: V58.69, ICD10: Z79.899 Check - VITAMIN B12 BLOOD - MAGNESIUM BLD 25. Bilateral leg edema - ICD9: 782.3, ICD10: R60.0 - will stop the lasix and change to Demadex 10 mg BID. - patient to get his labs next week. Discussed that this could be more vascular insufficiency and his support socks help this the most. Requested Prescriptions Signed Prescriptions Disp Refills atorvastatin (LIPITOR) 40 mg tablet 90 tablet 1 Sig: Take 1 tablet by mouth once daily. torsemide (DEMADEX) 10 mg tablet 60 tablet 1 Sig: Take 1 tablet by mouth twice daily. F/u in a months for leg edema. F/u 6 months routine I spent a total of 40 minutes on the date of the service which included preparing to see the patient, [id number] patient care, completing clinical documentation, performing a medically appropriate examination, counseling and educating the patient/family/caregiver and ordering medications, tests, or procedures. Ovidio Vincent MD documented [facility] this [facility] History of Present illness Narrative* Nargis Ortega RN - 09/21/2022 11:35 AM EST INSIGHT CD TELEPHONIC OUTREACH Provider Action/FYI: Contact made with patient: No - Left message Hello my name is Nargis Ortega RN your Blanket Binder from the [facility] I am calling today for your monthly check in. I am sorry I missed your call. I will reach out to you again next month. (if the third call I will reach out to you again next week) Enter next patient outreach date for the following day using the Track Pt Outreach. End outreach. documented in this [facility]Sam[facility]12-19-2022 Miscellaneous Notes* Telephone Encounter - Ramu Alanis MA - 09/05/2022 11:06 AM EST Prescription order with another phone encounter. Ramu Alanis MA documented in this [facility]12-19-2022 Miscellaneous Notes* Telephone Encounter - Ramu Alanis MA - 09/05/2022 11:02 AM EST Patient has been identified by name and date of : Yes Requested Prescriptions Pending Prescriptions Disp Refills omeprazole (PRILOSEC) 40 mg capsule 90 capsule 1 Sig: TAKE ONE CAPSULE BY MOUTH ONCE DAILY ON AN EMPTY STOMACH RX INSTRUCTIONS: Patient aware RX will be sent to pharmacy. No need to notify patient. Ramu Alanis MA Mckenna: 03/2022 Nov: 09/2022 Last refill: 02/2022 documented in this [facility]12-19-2022 Miscellaneous Notes* Telephone Encounter - Sangita Martinez LPN - 09/05/2022 10:56 AM EST Valid RX at pharmacy Sangita Martinez LPN documented in this [facility]12-13-2022 Miscellaneous Notes* Telephone Encounter - Sangita Martinez LPN - 08/30/2022 12:58 PM EST Order is for low dose CT Chest. Yaquelin notified, order already in place. Sangita Martinez LPN * Telephone Encounter - Maria Alejandra Montenegro RN - 08/30/2022 12:33 PM EST Yaquelin from [facility] scheduling called. Ronnie is at [facility] stating that he needs a chest x-ray, but does not have an order. I looked through the imaging tab in [employer] and I do not see an order. Attempted to call pulmonary nurse, no answer. Went to the unit and she was not there. Please contact either Yaquelin or Christy at [phone]. Maria Alejandra Montenegro RN documented in this encounterSam[facility]12-12-2022 Miscellaneous Notes* Telephone Encounter - Ovidio Vincent MD - 08/29/2022 12:09 PM EST The following approved medication requests have been transmitted electronically. Requested Prescriptions Signed Prescriptions Disp Refills celecoxib (CELEBREX) 200 mg capsule 60 capsule 5 Sig: Take 1 capsule by mouth twice daily. Authorizing Provider: OVIDIO VINCENT metFORMIN (GLUCOPHAGE) 1,000 mg tablet 60 tablet 5 Sig: Take 1 tablet by mouth twice daily with meals. Authorizing Provider: OVIDIO VINCENT MD * Telephone Encounter - Slime Hernandez LPN - 08/29/2022 11:44 AM EST Last refill metformin 10/18/21 Qty: 60 with 11 refills Last refill Celebrex 07/04/22 Qty: 60 with 1 refill MCKENNA 07/04/22 NOV 09/30/22 Slime Hernandez LPN documented in this [facility]12-12-2022 Miscellaneous Notes* Telephone Encounter - Slime Hernandez LPN - 08/29/2022 11:47 AM EST This is being addressed in additional refill encounter. Slime Hernandez LPN documented in this encounterSam[facility]12-12-2022 Miscellaneous Notes* Telephone Encounter - Sangita Martinez LPN - 08/29/2022 10:00 AM EST Trelegy refills available at pharmacy. Sangita Martinez LPN documented in this encounterSam[facility]12-07-2022 History of Present illness Narrative* Nargis Ortega RN - 08/24/2022 9:37 AM EST INSIGHT CDM TELEPHONIC OUTREACH Provider Action/FYI: Patient reports he is doing good, stated he needed a refill for Aspirin 81 mg, informed patient there was a prescription sent on 07/04/22, pharmacy may have on file due to early refill. Patient had no further questions, concerns, needs at this time. Contact made with patient: Yes Patient identified by name and . Discussed care with patient It s nice talking to you again. As a reminder, this is our bi-weekly check-in where I will be asking you questions about your health. This will only take a few minutes of your time. Is this a good time? Yes Symptoms What Chronic Disease(s) does the patient have: COPD Do you check your blood pressures at home? No Do you have new or worse shortness of breath with activity? No Do you have new or worsening cough? No Do you have new or worsening wheezing? No Do you need to use your rescue (Albuterol) inhaler or nebulizer more often than normal? No Are you having any other symptoms that your PCP needs to know about? No Symptom Escalation The patient required an escalation for symptom(s)? No Medications Do you have any questions about taking your medication or which medications you should be on? No Do you need any medication refills at this time, including any of the medications you might take only when needed? No Social We would like to make sure you have what you need so that your basic needs are met- including your personal safety, food, housing and medications? Would you like to speak with a social work senior engineering team leader to help give you support for any of these needs? No It can be normal to feel anxious or down during a time like this. Would you like to talk to a mental health professional about how you have been feeling? No Closing Thank you for taking the time to talk with me today. We want to work with you to ensure that we arekeeping your medical condition(s) well-controlled and to keep you healthy and out of the doctor's office or hospital. It s also not too late for me to sign you up for automated weekly questionnaires through [employer]. This is an easy way for us to stay connected each week. Are you interested? No, I understand. We can always sign you up in the future if you change your mind. Just as a reminder, will continue to call you every other week to check in on your health. Our calls should take 10-15 minutes or less. Remember, if you have concerns in between our calls, please call your PCP's office right away. Thank you. Enter next patient outreach date for two weeks on the same day of the week as today in the Track PtOutreach and End outreach. documented in this [facility]12-[facility]-2022 History of Present illness Narrative* Nargis Ortega RN - 08/23/2022 11:38 AM EST INSIGHT CDM TELEPHONIC OUTREACH Provider Action/FYI: Contact made with patient: No - Left message Hello my name is Nargis Ortega RN your Blanket Binder from the [facility] I am calling today for your monthly check in. I am sorry I missed your call. I will reach out to you again tomorrow. (if the third call I will reach out to you again next week) Enter next patient outreach datefor the following using the Track Pt Outreach. End outreach. documented in this encounterSam[facility]11-21-2022 Instructions* Patient Instructions* Hayde Ward MD - 08/08/2022 10:03 AM EST Astepro nasal spray documented in this encounterSam[facility]11-21-2022 History of Present illness Narrative* Hayde Ward MD - 08/08/2022 9:30 AM EST Images from the original note were not included. . [facility] [place] Note Patient name: Ronine Yarbrough PCP: Ovidio Vincent MD CC: Follow-up COPD HPI: Ronnie Yarbrough 72 year old obese male former 40 pack year smoker with PMH significant for MM s/p autologous BMT, COPD with CB component , HTN, HLD, h/o DVT, former patient of Dr. Arevalo who presents for routine follow-up. Current therapy with Dulera and as needed albuterol. Has chronic cough with phlegm clear. No specific triggers for his cough. Cough with sputum production can occur throughout the day. Also has significant postnasal drip, not responsive to Flonase nasal spray. Interfere with his sleep. He denies significant shortness of breath, wheezing, chest pain. He has been on Dulera without much improvement in his cough or sputum production. Last chest imaging 2019 showed pulmonaryedema and bilateral pulmonary nodularity. Patient has not had subsequent follow-up surveillance CT. DATA: PFT: Review of pulmonary function test show mild obstruction Labs: Component Ref Range & Units 3 mo ago IgG 700-1,600 mg/dL 514 Low IgA 70 - 400 mg/dL 52 Low IgM 40 - 230 mg/dL 24 Imaging / Diagnostic Studies: DATE OF EXAM: Oct 22 2019 7:08PM [facility] [place] CHEST WO IVCON / PROCEDURE REASON: Shortness of breath IMPRESSION: INCREASE OF SCLEROSIS/HEALING SURROUNDING LUCENT LESIONS IN THE SKELETAL STRUCTURES COMPATIBLE WITH TREATED MULTIPLE MYELOMA. UNDERLYING ACTIVE DISEASE IS NOT EXCLUDED. WORSENING OF INFLAMMATORY AIRWAY DISEASE CHANGES. WORSENING OF INTERSTITIAL PULMONARY EDEMA/FLUID OVERLOAD. DEVELOPMENT OF CLUSTERED NODULES IN THE LEFT UPPER LOBE, PROBABLY INFLAMMATORY. UNDERLYING NODULE OF DIFFERENT NATURE IS NOT EXCLUDED. FOLLOW-UP IS RECOMMENDED. SEVERAL ADDITIONAL NODULES ARE UNCHANGED AND LIKELY BENIGN. SLIGHT INCREASE IN SIZE OF SMALL NONENLARGED MEDIASTINAL AND HILAR NODES, LIKELY REACTIVE. ATTENTION ON FOLLOW-UP IS RECOMMENDED PAST MEDICAL HISTORY Diagnosis Date Acute bronchitis with chronic obstructive pulmonary disease (COPD) ([facility]) 12/30/2014 Acute on chronic systolic CHF (congestive heart failure) ([facility]) 10/04/2019 Allergic rhinitis 03/15/2021 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[facility]) 06/13/2018 Day: +12; Engrafted Protocol(s): 3422 1C Preparative regimen: melphalan Mobilization regimen: neupogen and plerixafor Stem cell source: apheresis CD34 cell dose (x10e6/kg): 5.14 Date of transplant: 06/15/2018 Cancer of the skin, 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[facility]) 06/13/2018 --ppx ACV and cipro Inflammatory polyarthropathy ([facility]) Leg DVT (deep venous thromboembolism), acute, left ([facility]) 01/02/2018 --acute DVT gastrocnemius found 12/13/2017 --continue apixaban till platelets <50K, last dose 06/21/2018 Low serum vitamin B12 04/22/2021 Lumbar spinal stenosis Medicare annual wellness visit, subsequent 10/06/2021 Medicare part B: Not able to find, Last done: 10/06/2021 Mixed hyperlipidemia 10/31/2006 --will hold atorvastatin d/t interactions with chemotherapy can resume at discharge Multiple myeloma ([facility]) 11/28/2017 Multiple myeloma in remission ([facility]) Obesity 10/01/2012 Osteoarthritis of both hands Pancytopenia due to chemotherapy ([facility]) 06/25/2018 --Transfuse PRBC and platelets per protocol --GCSF Peripheral autonomic neuropathy in disorders classified elsewhere 06/07/2005 Pulmonary hypertension, unspecified ([facility]) 10/23/2019 Reflux esophagitis Spinal stenosis, lumbar region, without neurogenic claudication 11/13/2006 Tobacco abuse 12/27/2011 Quit 2013 Type 2 diabetes mellitus without complication, without long-term current use of insulin ([facility]) 04/12/2018 Venous insufficiency, peripheral 01/06/2014 Vitamin D deficiency 12/31/2014 ALLERGIES Allergen Reactions Gabapentin Other: See Comments Depression/suicidal ideation SLOW-MAG 71.5 mg TbEC^take 2 tablets by mouth twice a day^Disp: 120 tablet^Rfl: 3 aspirin, enteric coated (ASPIRIN, ENTERIC COATED) 81 mg EC tablet^Take 1 tablet by mouth once daily.^Disp: 100 tablet^Rfl: 3 Cholecalciferol, Vitamin D3, (VITAMIN D-3) 50 mcg (2,000 unit) cap^Take 1 capsule by mouth once daily.^Disp: 90 capsule^Rfl: 3 celecoxib (CELEBREX) 200 mg capsule^Take 1 capsule by mouth twice daily.^Disp: 60 capsule^Rfl: 1 Tadalafil (CIALIS) 20 mg tab(s)^Take 1 tablet by mouth once daily. As needed^Disp: 30 tablet^Rfl: 2 dapagliflozin (FARXIGA) 5 mg tablet^Take 1 tablet by mouth once daily. Take one daily in the morning^Disp: 30 tablet^Rfl: 5 furosemide (LASIX) 40 mg tablet^Take 1 tablet by mouth twice daily.^Disp: 180 tablet^Rfl: 1 atorvastatin (LIPITOR) 40 mg tablet^take 1 tablet by mouth once daily^Disp: 90 tablet^Rfl: 1 omeprazole (PRILOSEC) 40 mg capsule^TAKE ONE CAPSULE BY MOUTH ONCE DAILY ON AN EMPTY STOMACH^Disp: 90 capsule^Rfl: 1 metFORMIN (GLUCOPHAGE) 1,000 mg tablet^Take 1 tablet by mouth twice daily with meals.^Disp: 60 tablet^Rfl: 11 dulaglutide (TRULICITY) 1.5 mg/0.5 mL pen injector^Inject 1.5 mg subcutaneously one time a week. Inject once per week. Discard Pen After^Disp: 4 Each^Rfl: 5 terbinafine HCl (LAMISIL) 250 mg tablet^Take 1 tablet by mouth once daily.^Disp: 30 tablet^Rfl: 2 urea (CARMOL) 40 %^Apply to affected area once daily.^Disp: 198 g^Rfl: 11 fluticasone (FLONASE) 50 mcg/actuation nasal spray^One spray each nostril before bed.^Disp: 1 Each^Rfl: 5 cyanocobalamin (VITAMIN B-12) 1,000 mcg tab^Take 1 tablet by mouth once daily.^Disp: ^Rfl: Calcium-Cholecalciferol, D3, 600 mg-5 mcg (200 unit) cap^Take 1 capsule by mouth once daily.^Disp: ^Rfl: redtgafludv-aruhlvzoh-ywntxydt (TRELEGY ELLIPTA) 100-62.5-25 mcg inhalation powder^Inhale 1 Puff asinstructed once daily.^Disp: 1 Each^Rfl: 5 losartan (COZAAR) 25 mg tablet^Take 1 tablet by mouth once daily.^Disp: 90 tablet^Rfl: 1 (Patient not taking: Reported on 08/08/2022) mometasone-formoterol (DULERA) 100-5 mcg/actuation inhaler^Inhale 2 Puffs as instructed twice daily.^Disp: 17.6 g^Rfl: 2 leflunomide (ARAVA) 10 mg tablet^Take 1 tablet by mouth once daily. Prescribed by Dr. Oliva^Disp: ^Rfl: (Patient not taking: Reported on 08/08/2022) Social History Tobacco Use Smoking status: Former Packs/day: 1.00 Years: 41.00 Pack years: 41.00 Types: Pipe, Cigarettes Start date: 1971 Quit date: 12/09/2011 Years since quittin.6 Smokeless tobacco: Never Tobacco comments: 1/4 pack of cigs; pipe smoker. None of either since cessation. No ETS in childhood home. Smoked up to one ppd Vaping Use Vaping Use: Never used Substance Use Topics Alcohol use: Yes Comment: rare Drug use: No FAMILY HISTORY Problem Relation Age of Onset None Mother Cancer Father PANCREAS Diabetes Father Diabetes Sister None Brother Diabetes Paternal Grandmother COPD No Family History Asthma No Family History PAST SURGICAL HISTORY Procedure Laterality Date ANES ARTHROSCOPIC TOTAL SHOULDER REPLACEMENT Right 01/28/2013 [facility] - complete right shoulder replaceement ARTHRD ANT INTERBODY MIN DSC LUMBAR 2009 ARTHROTOMY W/MENISCUS REPAIR KNEE 1980 RIGHT ARTHROTOMY W/MENISCUS REPAIR KNEE 1982 LEFT ARTHRP KNE CONDYLE&PLATU MEDIAL&LAT COMPARTMENTS Right 2008 Knee replacement, total BACK SURGERY HX COLONOSCOPY FLX DX W/COLLJ SPEC WHEN PFRMD 09/25/2012 normal colonoscopy - 10 year follow up EGD TRANSORAL BIOPSY SINGLE/MULTIPLE 09/25/2012 mild distal esophagitis HAND BILATERAL OP SURGERY 2021 trigger finger/ cyst removal JOINT REPLACEMENT HX Right shoulder HARRIS W/O FACETEC FORAMOT/DSC 1/2 VRT SGM CRV 2007 Laminectomy, cervical PAST SURGICAL HISTORY OF Right 08/23/2021 carpal tunnel release with wrist arthrotomy and synovectomy PAST SURGICAL HISTORY OF Right 08/23/2021 ulnar nerve decompression SKIN BIOPSY HX TONSILLECTOMY HX PMH, Social history, family history and surgical history reviewed and updated in EMR REVIEW OF SYSTEMS: CONSTITUTIONAL: No fevers, chills, nightsweats, unintended weight loss HEENT: Denies headaches. Positive nasal congestion/sinus symptoms CARDIOVASCULAR: No chest pain, dyspnea, palpitations. Positive edema. PULM: See HPI GI: No dysphagia/odynophagia, problematic reflux INTEGUMENTARY: No new skin changes or rashes PHYSICAL EXAMINATION: BP 156/83 Pulse 77 Resp 14 Ht 5' 10 (1.78m) Wt 216 lb 14.9 oz (98.4kg) SpO2 96% BMI 31.13 kg/(m^2). General Appearance: Age-appropriate male, NAD Skin: Skin color, texture, turgor normal, no suspicious rashes or lesions. Head: Normocephalic, no masses, lesions, tenderness or abnormalities. Eyes: Sclera, conjunctiva normal Oropharynx: Adequate dentition, no posterior pharyngeal erythema or cobblestoning, no thrush Neck: No JVD, no masses no adenopathy Lungs: Not labored, normal to percussion, no wheezes or crackles Heart: Regular rate and rhythm, no murmurs gallops Extremities: Edema, no clubbing Assessment/Plan: 1. COPD with chronic bronchitis -Persistent symptoms of bronchitis due to COPD and post nasal drip -Change inhaled therapy to Trelegy Ellipta -Obstruction not severe enough to qualify for Daliresp. May need to consider chronic azithromycin therapy depending on response to change in inhaler 2. Former cigarette smoker -Former 40 pack year smoker with COPD -Continue abstinence -Qualifies for LDCT chest for lung cancer screening. Prefers [facility] 3. Postnasal drip -Instructed to obtain OTC Astepro nasal spray Hayde Ward MD [facility] [place] documented in this [facility]11-10-2022 Miscellaneous Notes* Telephone Encounter - Ela Alvarez MD - 07/28/2022 11:45 AM EST Patient's request for medication is as follows Requested Prescriptions Signed Prescriptions Disp Refills SLOW-MAG 71.5 mg TbEC 120 tablet 3 Sig: take 2 tablets by mouth twice a day Authorizing Provider: ELA ALVAREZ Order entered - please phone pharmacy and notify patient. Ela Alvarez MD documented in this encounterSam[facility]10-17-2022 History of Present illness Narrative* Ovidio Vincent MD - 07/04/2022 1:40 PM EDT Chief Complaint Patient presents with: Pain: Left wrist/shoulder pain HPI Ronnie Yarbrough is a 72 year old male who presents here today for Acute onset of Arthritis. Patient has known inflammatory polyarthritis. Patient has been having increased pain in the wrists and the left shoulder. He had a right shoulder replacement in the distant past and has been told he should have the left one done at some time. Patient was seeing Rheumatology in [place] and back in March requested a second opinion and was referred to [facility] but an appt was never set up. Has noted some swelling in the wrists and sometimes are warm. No redness. Has been wearing a compression wrist band that does help. 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 Patient has been [facility] but no longer helping. Patient noting issues with ED. Patient with Hx of diabetes, HTN and ex-smoker. Past medical history, appointments, medications, allergies reviewed. 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 Day: +12; Engrafted Protocol(s): 3422 1C Preparative regimen: melphalan Mobilization regimen: neupogen and plerixafor Stem cell source: apheresis CD34 cell dose (x10e6/kg): 5.14 Date of transplant: 06/15/2018 Cancer of the skin, 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[facility]) 06/13/2018 --ppx ACV and cipro Inflammatory polyarthropathy ([facility]) Leg DVT (deep venous thromboembolism), acute, left ([facility]) 01/02/2018 --acute DVT gastrocnemius found 12/13/2017 --continue apixaban till platelets <50K, last dose 06/21/2018 Low serum vitamin B12 04/22/2021 Lumbar spinal stenosis Medicare annual wellness visit, subsequent 10/06/2021 Medicare part B: Not able to find, Last done: 10/06/2021 Mixed hyperlipidemia 10/31/2006 --will hold atorvastatin d/t interactions with chemotherapy can resume at discharge Multiple myeloma ([facility]) 11/28/2017 Multiple myeloma in remission ([facility]) Obesity 10/01/2012 Osteoarthritis of both hands Pancytopenia due to chemotherapy ([facility]) 06/25/2018 --Transfuse PRBC and platelets per protocol --GCSF Peripheral autonomic neuropathy in disorders classified elsewhere 06/07/2005 Pulmonary hypertension, unspecified ([facility]) 10/23/2019 Reflux esophagitis Spinal stenosis, lumbar region, without neurogenic claudication 11/13/2006 Tobacco abuse 12/27/2011 Quit 2012 Type 2 diabetes mellitus without complication, without long-term current use of insulin ([facility]) 04/12/2018 Venous (peripheral) insufficiency Venous insufficiency, peripheral 01/06/2014 Vitamin D deficiency 12/31/2014 Previous Surgical History PAST SURGICAL HISTORY Procedure Laterality Date ANES ARTHROSCOPIC TOTAL SHOULDER REPLACEMENT Right 01/28/2013 [facility] - complete right shoulder replaceement ARTHRD ANT INTERBODY MIN DSC LUMBAR 2009 ARTHROTOMY W/MENISCUS REPAIR KNEE 1981 RIGHT ARTHROTOMY W/MENISCUS REPAIR KNEE 1982 LEFT ARTHRP KNE CONDYLE&PLATU MEDIAL&LAT COMPARTMENTS Right 2007 Knee replacement, total BACK SURGERY HX COLONOSCOPY FLX DX W/COLLJ SPEC WHEN PFRMD 09/25/2012 normal colonoscopy - 10 year follow up EGD TRANSORAL BIOPSY SINGLE/MULTIPLE 09/25/2012 mild distal esophagitis HAND BILATERAL OP SURGERY 2021 trigger finger/ cyst removal JOINT REPLACEMENT HX HARRIS W/O FACETEC FORAMOT/DSC 09/19 VRT SGM CRV 2007 Laminectomy, cervical PAST SURGICAL HISTORY OF Right 08/23/2021 carpal tunnel release with wrist arthrotomy and synovectomy PAST SURGICAL HISTORY OF Right 08/23/2021 ulnar nerve decompression SKIN BIOPSY HX TONSILLECTOMY HX TONSILLECTOMY PRIMARY/SECONDARY AGE 13/> 1985 Tonsillectomy Family History FAMILY HISTORY Problem Relation Age of Onset None Mother Cancer Father PANCREAS Diabetes Father Diabetes Sister None Brother Diabetes Paternal Grandmother COPD No Family History Asthma No Family History Patient Allergies ALLERGIES Allergen Reactions Gabapentin Other: See Comments Depression/suicidal ideation Current Medications Current Outpatient Medications on File Prior to Visit Medication Sig aspirin, enteric coated (ASPIRIN, ENTERIC COATED) 81 mg EC tablet Take 1 tablet by mouth once daily. losartan (COZAAR) 25 mg tablet Take 1 tablet by mouth once daily. Cholecalciferol, Vitamin D3, (VITAMIN D-3) 50 mcg (2,000 unit) cap Take 1 capsule by mouth once daily. dapagliflozin (FARXIGA) 5 mg tablet Take 1 tablet by mouth once daily. Take one daily in the morning furosemide (LASIX) 40 mg tablet Take 1 tablet by mouth twice daily. atorvastatin (LIPITOR) 40 mg tablet take 1 tablet by mouth once daily Magnesium Chloride (SLOW-MAG) 71.5 mg TbEC Take 2 tablets by mouth twice daily. omeprazole (PRILOSEC) 40 mg capsule TAKE ONE CAPSULE BY MOUTH ONCE DAILY ON AN EMPTY STOMACH predniSONE (DELTASONE) 10 mg tablet Take 1 tablet by mouth once daily as needed for pain. metFORMIN (GLUCOPHAGE) 1,000 mg tablet Take 1 tablet by mouth twice daily with meals. dulaglutide (TRULICITY) 1.5 mg/0.5 mL pen injector Inject 1.5 mg subcutaneously one time a week. Inject once per week. Discard Pen After terbinafine HCl (LAMISIL) 250 mg tablet Take 1 tablet by mouth once daily. urea (CARMOL) 40 % Apply to affected area once daily. fluticasone (FLONASE) 50 mcg/actuation nasal spray One spray each nostril before bed. mometasone-formoterol (DULERA) 100-5 mcg/actuation inhaler Inhale 2 Puffs as instructed twice daily. cyanocobalamin (VITAMIN B-12) 1,000 mcg tab Take 1 tablet by mouth once daily. hydrOXYchloroQUINE (PLAQUENIL) 200 mg tablet Take 200 mg by mouth once daily. leflunomide (ARAVA) 10 mg tablet Take 1 tablet by mouth once daily. Prescribed by Dr. Oliva Calcium-Cholecalciferol, D3, 600 mg-5 mcg (200 unit) cap Take 1 capsule by mouth once daily. Current Facility-Administered Medications on File Prior to Visit Medication perflutren lipid microspheres 1.3 mL in NaCl (PF) 0.9% 10 mL injection (DEFINITY) sodium chloride 0.9 % (flush) 10 mL (BD POSIFLUSH) perflutren lipid microspheres 1.3 mL in NaCl (PF) 0.9% 10 mL injection (DEFINITY) sodium chloride 0.9 % (flush) 10 mL (BD POSIFLUSH) Social History Social History Tobacco Use Smoking status: Former Packs/day: 0.25 Years: 41.00 Pack years: 10.25 Types: Pipe, Cigarettes Start date: 1971 Quit date: 12/09/2011 Years since quittin.5 Smokeless tobacco: Never Tobacco comments: 1/4 pack of cigs; pipe smoker. None of either since cessation. No ETS in childhood home. Vaping Use Vaping Use: Never used Substance Use Topics Alcohol use: Yes Comment: rare Drug use: No Review of Symptoms REVIEW OF SYSTEMS See HPI EXAM: BP 122/80 (BP Site: Right Arm, BP Position: Sitting, BP Cuff Size: Regular Adult) Pulse 86 Resp18 Wt 98.9 kg (218 lb) BMI 31.39 kg/m General Appearance: Well appearing, alert, in no acute distress, well-hydrated, well nourished.. Musculoskeletal: both wrists are swollen. The right wrist is not tender to touch and no pain on flexion, extension, ulnar and radial deviation. The left wrist is tender to touch and positive for painwith flexion, extension, ulnar and radial deviation. The joints are not erythematous or warm. The left shoulder is not tender to palpation but has pain with abduction along with anterior and posterior rotation. Health Maintenance List ALPHA-1 ANTITRYPSIN DEFICIENCY SCREENING Never done ADVANCE DIRECTIVE DISCUSSION Never done DEPRESSION ASSESSMENT Never done COVID-19 VACCINE(5 - Booster for Moderna series) due on 02/21/2022 INFLUENZA(1) due on 05/19/2022 DILATED RETINAL EXAM due on 09/09/2022 COLORECTAL CANCER SCREENING due on 09/25/2022 DIABETIC FOOT EXAM due on 10/06/2022 BP CONTROLLED (<130/80) due on 10/06/2022 URINE ALBUMIN:CREATININE RATIO due on 10/07/2022 HBA1C due on 10/19/2022 ANNUAL PCP TEAM CHRONIC DISEASE VISIT due on 03/22/2023 LDL CHOLESTEROL due on 04/18/2023 DTAP,TDAP,TD(6 - Td or Tdap) due on 09/23/2029 SPIROMETRY Completed ABDOMINAL AORTIC ANEURYSM SCREENING Completed SHINGRIX VACCINE Completed PNEUMOCOCCAL: 65+ Completed HEPATITIS C SCREENING Discontinued Data reviewed A/P ASSESSMENT/PLAN: 1. Inflammatory polyarthropathy (HCC) - ICD9: 714.9, ICD10: M06.4 (primary diagnosis) - will place on medrol dose pack. Once complete patient can start celebrex. - CONSULT TO RHEUM/IMMUN DISEASE: [facility]. Discussed importance of hydration while on the steroid and to wait a week after taking it to start the Celebrex. 2. Encounter for immunization - ICD9: V03.89, ICD10: Z23 - [employer] COVID-19 BIVALENT BOOSTER VACCINE, AGE 12+ YR: given 3. ED (erectile dysfunction) of organic origin - ICD9: 607.84, ICD10: N52.9 NEW - will try Cialis as below. Requested Prescriptions Signed Prescriptions Disp Refills methylPREDNISolone (MEDROL, RASHAD,) 4 mg Dose-Pack 21 tablet 0 Sig: Follow dosing instructions, take with food. celecoxib (CELEBREX) 200 mg capsule 60 capsule 1 Sig: Take 1 capsule by mouth twice daily. Tadalafil (CIALIS) 20 mg tab(s) 30 tablet 2 Sig: Take 1 tablet by mouth once daily. As needed F/u routine I spent a total of 30 minutes on the date of the service which included preparing to see the patient, [id number] patient care, completing clinical documentation, performing a medically appropriate examination, counseling and educating the patient/family/caregiver and ordering medications, tests, or procedures. Ovidio Vincent MD documented in this encounterSam[facility]10-[facility]22 Miscellaneous Notes* Telephone Encounter - Ela Alvarez MD - 07/04/2022 8:16 AM EDT Patient's request for medication is as follows Requested Prescriptions Signed Prescriptions Disp Refills aspirin, enteric coated (ASPIRIN, ENTERIC COATED) 81 mg EC tablet 100 tablet 3 Sig: Take 1 tablet by mouth once daily. Authorizing Provider: ELA ALVAREZ Order entered - please phone pharmacy and notify patient. Ela Alvarez MD documented in this encounterSam[facility]10-17-2022 Miscellaneous Notes* Telephone Encounter - Ramu Alanis MA - 07/04/2022 8:08 AM EDT Patient has been identified by name and date of : Yes Requested Prescriptions Pending Prescriptions Disp Refills losartan (COZAAR) 25 mg tablet 90 tablet 1 Sig: Take 1 tablet by mouth once daily. Cholecalciferol, Vitamin D3, (VITAMIN D-3) 50 mcg (2,000 unit) cap 90 capsule 3 Sig: Take 1 capsule by mouth once daily. RX INSTRUCTIONS: Patient aware RX will be sent to pharmacy. No need to notify patient. Ramu Alanis MA Mckenna: 03/2022 Nov: 09/2022 Last refill: 12/2021 documented in this encounterSam[facility]10-12-2022 History of Present illness Narrative* Nargis Ortega RN - 06/29/2022 9:32 AM EDT [facility] TELEPHONIC OUTREACH Provider Action/FYI: Contact made with patient: No - Left message Dolores my name is Nargis Ortega RN your Blanket Binder from the [facility] I am calling today for your monthly check in. I am sorry I missed your call. I will reach out to you again next month. (if the third call I will reach out to you again next week) Enter next patient outreach date for the following business day using the Track Pt Outreach. End outreach. documented in this encounterSam[facility]10-11-2022 History of Present illness Narrative* Nargis Ortega RN - 06/28/2022 11:28 AM EDT [facility] TELEPH[facility]IC OUTREACH Provider Action/FYI: Contact made with patient: No - Left message Dolores my name is Nargis Ortega RN your Blanket Binder from the [facility] I am calling today for your monthly check in. I am sorry I missed your call. I will reach out to you again tomorrow. (if the third call I will reach out to you again next week) Enter next patient outreach datefor the following business day using the Track Pt Outreach. End outreach. documented in this encounterSam[facility]09-22-2022 Miscellaneous Notes* Telephone Encounter - Madison Hyde LPN - 06/09/2022 3:21 PM EDT Patient phones requesting refills as follows: Requested Prescriptions Pending Prescriptions Disp Refills dapagliflozin (FARXIGA) 5 mg tablet 30 tablet 5 Sig: Take 1 tablet by mouth once daily. Take one daily in the morning MCKENNA-03/22/22 Labs-06/07/22 NOV-09/30/22 med filled 11/03/21 Please review and advise. Madison Hyde LPN documented in this encounterSam[facility]09-21-2022 Miscellaneous Notes* Telephone Encounter - Nargis Fox Ma - 06/08/2022 11:41 AM EDT Last office visit: 03/22/22 F/u scheduled: 09/30/22 Nargis Fox Ma * Telephone Encounter - Ramu Alanis MA - 06/08/2022 8:44 AM EDT Patient has been identified by name and date of : Yes Requested Prescriptions Pending Prescriptions Disp Refills furosemide (LASIX) 40 mg tablet 180 tablet 1 Sig: Take 1 tablet by mouth twice daily. RX INSTRUCTIONS: Patient aware RX will be sent to pharmacy. No need to notify patient. Ramu Alanis MA Mckenna: 03/2022 Nov: 09/2022 Last refill: 06/2021 documented in this encounterSam[facility]09-15-2022 History of Present illness Narrative* Franco Zuñiga MD - 06/02/2022 8:01 AM EDT Patient presents with: Right Hand - Established Patient, Post Op: 8 wks postop excision ganglion cyst right 5th finger Franco Zuñiga MD Department of Orthopaedics Orthopaedics [address] [place] [id number] Dept: [phone] Dept June 02, 2022 CHIEF COMPLAINT: Established Patient and Post Op of the Right Hand (8 wks postop excision ganglion cyst right 5th finger). HPI Patient is 8 weeks after surgeries on both hands. He is actually doing significantly better and really has no pain at this time. He is very pleased with his results thus far. ASSESSMENT: M67.40 Ganglion cyst (primary encounter diagnosis) SUMMARY/PLAN: Very happy with his improvement since last time I saw him. Swelling is markedly down. Pain is basically gone. Little bit of tightness still with the finger flexion but the dorsum of the left hand looks excellent now. He can follow-up as needed. Supporting Information Below: Medications: Current Outpatient Medications Medication Sig Cholecalciferol, Vitamin D3, (VITAMIN D-3) 50 mcg (2,000 unit) cap Take 1 capsule by mouth once daily. aspirin, enteric coated (ASPIRIN, ENTERIC COATED) 81 mg EC tablet take 1 tablet by mouth once daily atorvastatin (LIPITOR) 40 mg tablet take 1 tablet by mouth once daily Magnesium Chloride (SLOW-MAG) 71.5 mg TbEC Take 2 tablets by mouth twice daily. omeprazole (PRILOSEC) 40 mg capsule TAKE ONE CAPSULE BY MOUTH ONCE DAILY ON AN EMPTY STOMACH predniSONE (DELTASONE) 10 mg tablet Take 1 tablet by mouth once daily as needed for pain. losartan (COZAAR) 25 mg tablet take 1 tablet by mouth once daily dapagliflozin (FARXIGA) 5 mg tablet Take 1 tablet by mouth once daily. Take one daily in the morning metFORMIN (GLUCOPHAGE) 1,000 mg tablet Take 1 tablet by mouth twice daily with meals. dulaglutide (TRULICITY) 1.5 mg/0.5 mL pen injector Inject 1.5 mg subcutaneously one time a week. Inject once per week. Discard Pen After terbinafine HCl (LAMISIL) 250 mg tablet Take 1 tablet by mouth once daily. urea (CARMOL) 40 % Apply to affected area once daily. fluticasone (FLONASE) 50 mcg/actuation nasal spray One spray each nostril before bed. mometasone-formoterol (DULERA) 100-5 mcg/actuation inhaler Inhale 2 Puffs as instructed twice daily. furosemide (LASIX) 40 mg tablet Take 1 tablet by mouth twice daily. cyanocobalamin (VITAMIN B-12) 1,000 mcg tab Take 1 tablet by mouth once daily. hydrOXYchloroQUINE (PLAQUENIL) 200 mg tablet Take 200 mg by mouth once daily. leflunomide (ARAVA) 10 mg tablet Take 1 tablet by mouth once daily. Prescribed by Dr. Oliva Calcium-Cholecalciferol, D3, 600 mg-5 mcg (200 unit) cap Take 1 capsule by mouth once daily. Current Facility-Administered Medications Medication Dose Route Frequency perflutren lipid microspheres 1.3 mL in NaCl (PF) 0.9% 10 mL injection (DEFINITY) INTRAVENOUS DIRECTED PRN sodium chloride 0.9 % (flush) 10 mL (BD POSIFLUSH) 10 mL INTRAVENOUS DIRECTED PRN perflutren lipid microspheres 1.3 mL in NaCl (PF) 0.9% 10 mL injection (DEFINITY) INTRAVENOUS DIRECTED PRN sodium chloride 0.9 % (flush) 10 mL (BD POSIFLUSH) 10 mL INTRAVENOUS DIRECTED PRN Allergies: Gabapentin Franco Zuñiga MD documented in this encounterSam[facility]09-13-2022 History of Present illness Narrative* Nargis Ortega RN - 05/31/2022 10:39 AM EDT [facility] TELEPHONIC OUTREACH Provider Action/FYI: Patient reports he is doing good, getting ready to go on another mission trip to [place]. Patient had no questions, concerns, needs at this time. Contact made with patient: Yes Patient identified by name and . Discussed care with patient It s nice talking to you again. As a reminder, this is our bi-weekly check-in where I will be asking you questions about your health. This will only take a few minutes of your time. Is this a good time? Yes Symptoms What Chronic Disease(s) does the patient have: COPD Do you check your blood pressures at home? No Do you have new or worse shortness of breath with activity? No Do you have new or worsening cough? No Do you have new or worsening wheezing? No Do you need to use your rescue (Albuterol) inhaler or nebulizer more often than normal? No Are you having any other symptoms that your PCP needs to know about? No Symptom Escalation The patient required an escalation for symptom(s)? No Medications Do you have any questions about taking your medication or which medications you should be on? No Do you need any medication refills at this time, including any of the medications you might take only when needed? No Social We would like to make sure you have what you need so that your basic needs are met- including your personal safety, food, housing and medications? Would you like to speak with a social work senior engineering team leader to help give you support for any of these needs? No It can be normal to feel anxious or down during a time like this. Would you like to talk to a mental health professional about how you have been feeling? No Closing Thank you for taking the time to talk with me today. We want to work with you to ensure that we arekeeping your medical condition(s) well-controlled and to keep you healthy and out of the doctor's office or hospital. It s also not too late for me to sign you up for automated weekly questionnaires through [employer]. This is an easy way for us to stay connected each week. Are you interested? No, I understand. We can always sign you up in the future if you change your mind. Just as a reminder, will continue to call you every other week to check in on your health. Our calls should take 10-15 minutes or less. Remember, if you have concerns in between our calls, please call your PCP's office right away. Thank you. Enter next patient outreach date for two weeks on the same day of the week as today in the Track PtOutreach and End outreach. documented in this encounterSam[facility]08-24-2022 History of Present illness Narrative* Nargis Ortega RN - 05/11/2022 9:35 AM EDT [facility] TELEPHONIC OUTREACH Provider Action/FYI: Per chart review, patient is out of town, will return May 27. Left detailed message on voicemail advising to return call to this nurse for any questions, concerns, needs. Will follow up when patient is back in town. Contact made with patient: No - Left message Dolores my name is Nargis Ortega RN your Blanket Binder [facility] the [facility] I am calling today for your monthly check in. I am sorry I missed your call. I will reach out to you again next month. (if the third call I will reach out to you again next week) Enter next patient outreach date for the following business day using the Track Pt Outreach. End outreach. documented in this encounterSam[facility]08-11-2022 History of Present illness Narrative* Franco Zuñiga MD - 04/28/2022 3:54 PM EDT Patient presents with: Left Hand - Follow Up, Post Op, Established Patient Right Hand - Post Op, Follow Up, Established Patient AMB ROOMING INTAKE FLOWSHEET DATA 3 weeks post op excision right 5th finger ganglion cyst and excision left hand ganglion cyst Franco Zuñiga MD Department of Orthopaedics Orthopaedics [address] [facility] [address] Dept: [phone] Dept April CHIEF COMPLAINT: Follow Up, Post Op, and Established Patient of the Left Hand and Post Op, Follow Up, and Established Patient of the Right Hand. HPI 6 weeks after surgery. He is doing fine. I had a bit of swelling after surgery that gone down. Painis better. ASSESSMENT: M79.89 Swelling of left hand (primary encounter diagnosis) M67.40 Ganglion cyst SUMMARY/PLAN: Continue gentle range of motion program. Follow-up as needed. Exam: Surgical sites look excellent. No concerns. Pathology was consistent with Supporting Information Below: Medications: Current Outpatient Medications Medication Sig Cholecalciferol, Vitamin D3, (VITAMIN D-3) 50 mcg (2,000 unit) cap Take 1 capsule by mouth once daily. aspirin, enteric coated (ASPIRIN, ENTERIC COATED) 81 mg EC tablet take 1 tablet by mouth once daily atorvastatin (LIPITOR) 40 mg tablet take 1 tablet by mouth once daily Magnesium Chloride (SLOW-MAG) 71.5 mg TbEC Take 2 tablets by mouth twice daily. omeprazole (PRILOSEC) 40 mg capsule TAKE ONE CAPSULE BY MOUTH ONCE DAILY ON AN EMPTY STOMACH predniSONE (DELTASONE) 10 mg tablet Take 1 tablet by mouth once daily as needed for pain. losartan (COZAAR) 25 mg tablet take 1 tablet by mouth once daily dapagliflozin (FARXIGA) 5 mg tablet Take 1 tablet by mouth once daily. Take one daily in the morning metFORMIN (GLUCOPHAGE) 1,000 mg tablet Take 1 tablet by mouth twice daily with meals. dulaglutide (TRULICITY) 1.5 mg/0.5 mL pen injector Inject 1.5 mg subcutaneously one time a week. Inject once per week. Discard Pen After terbinafine HCl (LAMISIL) 250 mg tablet Take 1 tablet by mouth once daily. urea (CARMOL) 40 % Apply to affected area once daily. fluticasone (FLONASE) 50 mcg/actuation nasal spray One spray each nostril before bed. mometasone-formoterol (DULERA) 100-5 mcg/actuation inhaler Inhale 2 Puffs as instructed twice daily. furosemide (LASIX) 40 mg tablet Take 1 tablet by mouth twice daily. cyanocobalamin (VITAMIN B-12) 1,000 mcg tab Take 1 tablet by mouth once daily. hydrOXYchloroQUINE (PLAQUENIL) 200 mg tablet Take 200 mg by mouth once daily. leflunomide (ARAVA) 10 mg tablet Take 1 tablet by mouth once daily. Prescribed by Dr. Oliva Calcium-Cholecalciferol, D3, 600 mg-5 mcg (200 unit) cap Take 1 capsule by mouth once daily. Current Facility-Administered Medications Medication Dose Route Frequency perflutren lipid microspheres 1.3 mL in NaCl (PF) 0.9% 10 mL injection (DEFINITY) INTRAVENOUS DIRECTED PRN sodium chloride 0.9 % (flush) 10 mL (BD POSIFLUSH) 10 mL INTRAVENOUS DIRECTED PRN perflutren lipid microspheres 1.3 mL in NaCl (PF) 0.9% 10 mL injection (DEFINITY) INTRAVENOUS DIRECTED PRN sodium chloride 0.9 % (flush) 10 mL (BD POSIFLUSH) 10 mL INTRAVENOUS DIRECTED PRN Allergies: Gabapentin Franco Zuñiga MD documented in this encounterSam[facility]08-09-2022 History of Present illness Narrative* Ela Alvarez MD - 04/26/2022 9:34 AM EDT PATIENT NAME: Ronnie Yarbrough. CLINIC NO: [id number]. ATTENDING PHYSICIAN: Ela Alvarez MD. 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 He had a fall onto the ice and following this underwent imaging which revealed a fracture of his left clavicle in October 2017. He was initially managed conservatively but due to concern for an associated lesion with the clavicular fracture further imaging was performed and revealed abnormalities concerning for a neoplastic process. 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 He has felt well other than noticing increase shoulder and rib pain beginning of this year. He has no increased fatigue. No infections. No change in urinary habits. No headaches orne uropathy. Denies cardiac history, LE edema. No diarrhea/constipation or change in bowel habits. He underwent CT guided biopsy of the left clavicular lesion. Results indicate concern for a plasma cell neoplasm. He underwent a myeloma workup and was referred to Dr. Leija for radiation therapy to his clavicle. Work up initiated and he returns in follow up. 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 End organ damage: bone involvement Stage 1 ISS stage: B2 micro <3.5 and albumin > 3.5 Posttransplant maintenance treatment: Revlimid & dexamethasone discontinued in October 2019 Mr. Yarbrough have achieved complete remission with induction treatment in April 2018. He denies any ribs/ chest pain/ back pain or hip pain. On June 15, 2018, he underwent an autologous hematopoietic cell transplant after receiving high-dose melphalan for his transplant conditioning regimen. He has been on maintenance Revlimid dexamethasone therapy since completing his transplant since July 2018. His M protein has been 0.0 since his transplant; but his immunofixation show a small trace of IgG kappa protein. His maintenance therapy was discontinued in October 2019. Interim history: He currently has no new complaint. He has no fatigue or weight loss. He denied fever, chills, night sweating or bone pain. No neuropathy. He has no back pain or hip pain or bone pain. His diabetes is under control. All medications & allergies updated and reviewed by me. REVIEW OF SYSTEMS: CONSTITUTIONAL: No fevers, chills, nightsweats, unintended weight loss HEENT: Denies frequent or severe heaches, nasal congestion/sinus symptoms, problematic allergy problems. EYES: No diplopia or blurry vision. CARDIOVASCULAR: No chest pain, dyspnea, palpitations, orthopnea, PND, ankle edema. PULM: No dyspnea, unexplained cough. GI: No dysphagia/odynophagia, problematic reflux, constipation, diarrhea, changes in stool habits, hematochezia, melena. : No new urinary complaints, including dysuria, gross hematuria or pyuria. NEURO: No new balance problems, peripheral weakness/paresthesias or numbness of concern. MUSC-SKEL: No new joint pain, swelling lower extremities, or erythema. PSY: No concerns regarding depression, anxiety or panic. INTEGUMENTARY: No new skin changes (rash, new or changing mole, new growth) PHYSICAL EXAMINATION: 71-year-old well-nourished and well-developed gentleman in no acute distress performance status 100% BP 155/91 Pulse 80 Temp 97.6 Ht 5' 9.882 (1.78m) Wt 216 lb 8 oz (98.2kg) SpO2 96% BMI 31.17 kg/(m^2). HEENT: Head is normocephalic, atraumatic. Sclerae white, conjunctivae pink. PEERL. EOMs are intact.Oropharynx is benign. complexion pale LYMPHATICS: There is no palpable adenopathy in the neck, supraclavicular region, axillae, or groin. LUNGS: Lungs are clear to percussion and auscultation. HEART: Heart is normal without murmurs, gallops, or rubs. ABDOMEN: Soft and nontender without organomegaly. No masses can be palpated. EXTREMITIES: Are no edema NEUROLOGIC: Exam is physiologic LABS: Component Latest Ref Rng & Units 04/18/2022 WBC 3.70 - 11.00 k/uL 4.64 RBC 4.20 - 6.00 m/uL 4.87 Hemoglobin 13.0 - 17.0 g/dL 14.2 Hematocrit 39.0 - 51.0 % 44.0 MCV 80.0 - 100.0 fL 90.3 MCH 26.0 - 34.0 pg 29.2 MCHC 30.5 - 36.0 g/dL 32.3 RDW-CV 11.5 - 15.0 % 14.5 Platelet Count 150 - 400 k/uL 161 MPV 9.0 - 12.7 fL 9.6 Neut% % 76.8 Abs Neut (ANC) 1.45 - 7.50 k/uL 3.56 Lymph% % 13.1 Abs Lymph 1.00 - 4.00 k/uL 0.61 (L) Ramsey% % 8.4 Abs Ramsey <0.87 k/uL 0.39 Eosin% % 0.9 Abs Eosin <0.46 k/uL 0.04 Baso% % 0.2 Abs Baso <0.11 k/uL <0.03 Immature Gran % % 0.6 IMMATURE GRANS (ABS) <0.10 k/uL 0.03 NRBC /100 WBC 0.0 Absolute nRBC <0.01 k/uL <0.01 DTYPE Auto Component Latest Ref Rng & Units 04/18/2022 Protein, Total 6.3 - 8.0 g/dL 5.8 (L) Albumin 3.9 - 4.9 g/dL 3.9 Calcium 8.5 - 10.2 mg/dL 8.8 Bilirubin, Total 0.2 - 1.3 mg/dL 0.5 Alkaline Phosphatase 38 - 113 U/L 67 AST 14 - 40 U/L 10 (L) ALT 10 - 54 U/L 10 Glucose 74 - 99 mg/dL 158 (H) BUN 9 - 24 mg/dL 21 Creatinine 0.73 - 1.22 mg/dL 0.99 Sodium 136 - 144 mmol/L 138 Potassium 3.7 - 5.1 mmol/L 4.2 Chloride 97 - 105 mmol/L 102 CO2 22 - 30 mmol/L 22 Anion Gap 9 - 18 mmol/L 14 eGFR >=60 mL/min/1.73m 82 Normalized CAlcium 1.08 - 1.30 mmol/L 1.19 Ionized Calcium 1.08 - 1.30 mmol/L 1.20 Magnesium 1.7 - 2.3 mg/dL 1.2 (L) LD 135 - 225 U/L 112 (L) Phosphorus 2.7 - 4.8 mg/dL 3.0 Uric Acid 4.0 - 8.1 mg/dL 3.1 (L) Component Latest Ref Rng & Units 04/18/2022 IgG 700-1,600 mg/dL 514 (L) IgA 70 - 400 mg/dL 52 (L) IgM 40 - 230 mg/dL 24 (L) Bootjack Free, Serum 3.3 - 19.4 mg/L 14.3 Lambda Free, Serum 5.7 - 26.3 mg/L 10.9 K/L Ratio, Serum 0.26 - 1.65 1.31 MPA Result No M protein is identified. No M protein is identified. 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 Almost 3 1/2 years since he achieved complete remission 1) multiple myeloma - First [facility] after bone marrow transplant with no M-protein and normal Bootjack / Lambda ratio. In complete remission for almost 4 years. -No M protein detected. Plan:. -Discontinue Zometa -Repeat skeletal survey in 6 months -Repeat CBC and myeloma labs OV in 6 months 2) diabetes mellitus -improved. Plan: -Follow-up with PCP 3) vitamin B12 deficiency Plan: -Continue vitamin B12 supplement daily. Portions of this documentation were copied and pasted from previous office visit notes in order to provide a cohesive continuity of the history. The note has been reviewed and edited and updated as necessary. Ela Alvarez MD Cc: Dr. Ovidio Vincent documented in this encounterSam[facility] Miscellaneous Notes* Telephone Encounter - Nargis Fox Ma - 04/25/2022 12:45 PM EDT Last office visit: 03/22/22 F/u scheduled: 09/30/22 Nargis Fox Ma documented in this encounterSam[facility]08-02-2022 Miscellaneous Notes* Telephone Encounter - Slime Hernandez LPN - 04/19/2022 12:09 PM EDT Spoke with pt and advised of Leslye's instructions. Pt verbalizes understanding. Slime Hernandez LPN * Telephone Encounter - Leslye Winter PA-C - 04/19/2022 11:49 AM EDT Advise to start OTC 1000mcg of b12 once daily. Leslye Winter PA-C * Telephone Encounter - Swapna Pastor Ma - 04/19/2022 11:29 AM EDT Call to pt notified of message below. Currently not taking B12 supplement, but does take daily multivitamin. Is taking Slow-Mag 71.5 as listed on med list. Taking this once daily, advised to do bid. Any other suggestions? Swapna Pastor Ma * Telephone Encounter - Leslye Winter PA-C - 04/19/2022 11:18 AM EDT Let patient know that his a1c is 6.3% which has improved. Cholesterol is okay. Trigs elevated but stable. Metabolic panel is normal. b12 is low. Is he taking the b12 supplement? Magnesium level is still low. Is he on 400mg of magnesium. If so, have him take 1 twice a day. Leslye Winter PA-C documented in this encounterSam[facility]08-01-2022 History of Present illness Narrative* Mary Lopez PA-C - 04/18/2022 10:00 AM EDT Mary Lopez PA-C Department of Orthopaedics Orth[facility] [address] [place] [address] Dept: [phone] Dept April 18, 2022 CHIEF COMPLAINT: Post Op of the Right Hand and Post Op of the Left Hand. ASSESSMENT: M79.89 Swelling of left hand (primary encounter diagnosis) M67.40 Ganglion cyst M72.0 Dupuytren's contracture SUMMARY/PLAN: Patient presents 1 week and 4 days status post excision of left right fifth digit ganglion cyst andexcision of dorsum left hand ganglion cyst. He tells me that he was helping to build some handicap accessible ramps, accidentally bumped the right hand and did have some bleeding from the incision site. Right hand seems to be doing much better, a little stiff. He also bumped the back of his left hand while getting into his pickup truck, he reports quite a bit of clear drainage and increased swelling in the left hand. We discussed proper hand washing, no soaking of the operative hand. No heavy lifting, pushing or pulling with the operative hand, encourage gentle motion. We discussed scar massage. We will get him a compression wrap for the left hand and also do a prophylactic antibiotic. Follow up as planned. Exam: Right hand pinky incision site is well approximated with mild but appropriate edema. Patient is able to actively flex and extend the digit with some subjective stiffness. Sensation is intact to the right pinky. Left hand incision site is also well approximated, there is moderate edema of the dorsum of the left hand extending into the digits. Slight amount of erythema surrounding the incision site, dorsum ofthe hand is very boggy on palpation. No increased heat is noted, patient is able to form a loose composite fist and extend all digits, sensation is intact to the hand. Imaging: Deferred today. Mr. Ronnie Yarbrough was advised as to contrast therapies and/or to take analgesics/anti-inflammatories as needed and all contraindications were reviewed. Supporting Information Below: Medications: Current Outpatient Medications Medication Sig aspirin, enteric coated (ASPIRIN, ENTERIC COATED) 81 mg EC tablet take 1 tablet by mouth once daily atorvastatin (LIPITOR) 40 mg tablet take 1 tablet by mouth once daily Magnesium Chloride (SLOW-MAG) 71.5 mg TbEC Take 2 tablets by mouth twice daily. omeprazole (PRILOSEC) 40 mg capsule TAKE ONE CAPSULE BY MOUTH ONCE DAILY ON AN EMPTY STOMACH predniSONE (DELTASONE) 10 mg tablet Take 1 tablet by mouth once daily as needed for pain. losartan (COZAAR) 25 mg tablet take 1 tablet by mouth once daily Cholecalciferol, Vitamin D3, (VITAMIN D-3) 50 mcg (2,000 unit) cap Take 1 capsule by mouth once daily. dapagliflozin (FARXIGA) 5 mg tablet Take 1 tablet by mouth once daily. Take one daily in the morning metFORMIN (GLUCOPHAGE) 1,000 mg tablet Take 1 tablet by mouth twice daily with meals. dulaglutide (TRULICITY) 1.5 mg/0.5 mL pen injector Inject 1.5 mg subcutaneously one time a week. Inject once per week. Discard Pen After terbinafine HCl (LAMISIL) 250 mg tablet Take 1 tablet by mouth once daily. urea (CARMOL) 40 % Apply to affected area once daily. fluticasone (FLONASE) 50 mcg/actuation nasal spray One spray each nostril before bed. mometasone-formoterol (DULERA) 100-5 mcg/actuation inhaler Inhale 2 Puffs as instructed twice daily. furosemide (LASIX) 40 mg tablet Take 1 tablet by mouth twice daily. cyanocobalamin (VITAMIN B-12) 1,000 mcg tab Take 1 tablet by mouth once daily. magnesium oxide 400 mg magnesium cap Take 1 capsule by mouth once daily. hydroxychloroquine (PLAQUENIL) 200 mg tablet Take 200 mg by mouth once daily. leflunomide (ARAVA) 10 mg tablet Take 1 tablet by mouth once daily. Prescribed by Dr. Oliva Calcium-Cholecalciferol, D3, (CALCIUM 600 + D,3,) 600 mg calcium- 200 unit cap Take 1 capsule by mouth once daily. cephALEXin (KEFLEX) 250 mg capsule Take 1 capsule by mouth four times daily for 5 days. Current Facility-Administered Medications Medication Dose Route Frequency perflutren lipid microspheres 1.3 mL in NaCl (PF) 0.9% 10 mL injection (DEFINITY) INTRAVENOUS DIRECTED PRN sodium chloride 0.9 % (flush) 10 mL (BD POSIFLUSH) 10 mL INTRAVENOUS DIRECTED PRN perflutren lipid microspheres 1.3 mL in NaCl (PF) 0.9% 10 mL injection (DEFINITY) INTRAVENOUS DIRECTED PRN sodium chloride 0.9 % (flush) 10 mL (BD POSIFLUSH) 10 mL INTRAVENOUS DIRECTED PRN Allergies: Gabapentin This note was partially generated using [email or web address] voice recognition system, and there may be some incorrect words, spellings, and punctuation that were not noted in checking the note before saving. Mary Lopez PA-C * Vivian Tyler RN - 04/18/2022 9:18 AM EDT Patient presents with: Right Hand - Post Op Left Hand - Post Op 1 week 4 days post op excision large cyst right 5th finger, right 5th trigger finger release and excision cyst left hand. Denies pain today. documented in this encounterSam[facility]08-[facility]22 History of Present illness Narrative* RT Kris(R) - 04/18/2022 8:00 AM EDT Radiology Service Progress Note PATIENT NAME: Ronnie Yarbrough DATE OF SERVICE: April 18, 2022 TIME: 8:02 AM PATIENT IDENTITY VERIFICATION COMPLETED USING TWO (2) IDENTIFIERS: Name and Date of confirmedby patient verbally. FALL SCREENING: Has the patient had 2 falls in the last year or 1 fall with injury or currently using an Ambulatory Assistive Device (Walker, Cane, Wheelchair, Crutches, etc.)? No PATIENT GENDER DATA: Male PATIENT RELEVANT IMPLANT DATA REVIEWED: Not Applicable RADIOLOGY DEPARTMENT: General X-ray: Exam(s) Completed: Upper Extremity X- Ray(s): Hand, left PERIPHERAL IV DATA: Not applicable SIGNED BY: RT Kris(R) April 18, 2022 8:02 AM documented in this encounterSam[facility]07-25-2022 Miscellaneous Notes* Telephone Encounter - Carmen Moyer RN - 04/11/2022 5:14 PM EDT Noted. * Telephone Encounter - Mary Lopez PA-C - 04/07/2022 4:29 PM EDT No OT, but can we have him get a left hand xray prior to his post op visit? Xray order placed. * Telephone Encounter - Carmen Moyer RN - 04/07/2022 10:38 AM EDT Pt. having palmar fasciectomy today. Does he need an OT? documented in this encounterSam[facility]07-19-2022 Miscellaneous Notes* Telephone Encounter - Ela Alvarez MD - 04/05/2022 12:14 PM EDT Patient's request for medication is as follows Signed Prescriptions Disp Refills aspirin, enteric coated (ASPIRIN, ENTERIC COATED) 81 mg EC tablet 100 tablet 3 Sig: take 1 tablet by mouth once daily WILFREDO: No Authorizing Provider: ELA ALVAREZ Order entered - please phone pharmacy and notify patient. Ela Alvarez MD documented in this encounterSam[facility]07-15-2022 Miscellaneous Notes* Telephone Encounter - Mellisa Herrera Ma - 04/01/2022 10:50 AM EDT Surgery has been scheduled as requested. * Telephone Encounter - Carmen Moyer RN - 03/29/2022 4:05 PM EDT Per Delfina, will need to get approval if any code needed beyond 90391, but ok to use this code. Surgical request placed. Post-ops scheduled and mailed to pt. * Telephone Encounter - Carmen Moyer RN - 03/29/2022 9:42 AM EDT Attempted to place surgical request placed 04-07-2022 in [facility] for 1.right small finger, excision of ganglio/ soft tissue mass, 2. right small finger, trigger release and palmar fasciectomy 3. left dorsum hand ganglion cyst excision. Procedure codes used in [place] not accepted. LM for OR co-ordinator Delfina Chang to call to discuss. documented in this encounterSam[facility]07-11-2022 Miscellaneous Notes* Telephone Encounter - Ovidio Vincent MD - 03/28/2022 5:30 PM EDT The following approved medication requests have been transmitted electronically. Signed Prescriptions Disp Refills atorvastatin (LIPITOR) 40 mg tablet 90 tablet 1 Sig: take 1 tablet by mouth once daily WILFREDO: No Authorizing Provider: OVIDIO VINCENT MD * Telephone Encounter - Ramu Alanis MA - 03/28/2022 8:17 AM EDT Patient has been identified by name and date of : Yes Pending Prescriptions Disp Refills ATORVASTATIN 40 MG TABLET 90 tablet 12 Sig: take 1 tablet by mouth once daily WILFREDO: Yes RX INSTRUCTIONS: Patient aware RX will be sent to pharmacy. No need to notify patient. Ramu Alanis MA Mckenna: 03/2022 Nov: 09/2022 Requesting 90 day supply documented in this encounterSam[facility]07-11-2022 History of Present illness Narrative* Franco Zuñiga MD - 03/28/2022 10:36 AM EDT Franco Zuñiga MD Department of Orthopaedics Orth[facility] [address] [place] [address] Dept: [phone] Dept March 28, 2022 Consultation requested by PINA Hilario for an opinion regarding right finger mass, left wrist cyst. My final recommendations will be communicated back to the requesting physician by way of shared Medical record or letter to requesting physician via US mail. CHIEF COMPLAINT: Referred by Leslye Winter HPI Patient here today for ganglion cyst on right hand, left hand and left shoulder. He does have pain with them. He is right hand dominant, retired. ASSESSMENT: M72.0 Dupuytren's disease of palm (primary encounter diagnosis) M67.40 Ganglion cyst M79.644 Pain in finger of right hand M79.642 Left hand pain PLAN: I suspect he has a giant cell or possibly a ganglion, vs inclusion cyst. He is extremely tender at each of these spots. He has a bit of mild dupuytren's at the small finger, palm. I suppose the nodule could be a linwood nodule, but very tender which is not common. The risks, benefits, alternatives and potential complications were reviewed. FOLLOW UP INSTRUCTIONS: Will schedule as he wishes. Mr. Ronnie Yarbrough was advised as to contrast therapies and/or to take analgesics/anti-inflammatories as needed and all contraindications were reviewed. OBJECTIVE: Mr. Ronnie Yarbrough is a pleasant 71 year old in no apparent distress. Gen:There were no vitals taken for this visit. nl development, non obese, no deformities ENT: Normocephalic, normal hearing, moist mucosa CV: Pulses:Radial= 2+ and symmetric, capillary refill < 2 secs, no peripheral edema/varicosities Skin: no rash, bruising or lesions. Good turgor. Psych: cooperative and appropriate, alert and oriented x 3, good mood and affect. Musculoskeletal: Right, small finger marble sized soft tissue mass over P1. Mild Linwood cord over the small as well. Left, dorsum of hand with a ganglion at the base of 4th MC. IMAGING: Deferred today. Supporting Subjective Information Below: Past Medical History: PAST MEDICAL HISTORY Diagnosis Date Acute bronchitis with chronic obstructive pulmonary disease (COPD) ([facility]) 12/30/2014 Acute on chronic systolic CHF (congestive heart failure) ([facility]) 10/04/2019 Allergic rhinitis 03/15/2021 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[facility]) 06/13/2018 Day: +12; Engrafted Protocol(s): 3422 1C Preparative regimen: melphalan Mobilization regimen: neupogen and plerixafor Stem cell source: apheresis CD34 cell dose (x10e6/kg): 5.14 Date of transplant: 06/15/2018 Cancer of the skin, 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[facility]) 06/13/2018 --ppx ACV and cipro Inflammatory polyarthropathy ([facility]) Leg DVT (deep venous thromboembolism), acute, left ([facility]) 01/02/2018 --acute DVT gastrocnemius found 12/13/2017 --continue apixaban till platelets <50K, last dose 06/21/2018 Low serum vitamin B12 04/22/2021 Lumbar spinal stenosis Medicare annual wellness visit, subsequent 10/06/2021 Medicare part B: Not able to find, Last done: 10/06/2021 Mixed hyperlipidemia 10/31/2006 --will hold atorvastatin d/t interactions with chemotherapy can resume at discharge Multiple myeloma ([facility]) 11/28/2017 Multiple myeloma in remission ([facility]) Obesity 10/01/2012 Osteoarthritis of both hands Pancytopenia due to chemotherapy ([facility]) 06/25/2018 --Transfuse PRBC and platelets per protocol --GCSF Peripheral autonomic neuropathy in disorders classified elsewhere 06/07/2005 Pulmonary hypertension, unspecified ([facility]) 10/23/2019 Reflux esophagitis Spinal stenosis, lumbar region, without neurogenic claudication 11/13/2006 Tobacco abuse 12/27/2011 Quit 2013 Type 2 diabetes mellitus without complication, without long-term current use of insulin ([facility]) 04/12/2018 Venous (peripheral) insufficiency Venous insufficiency, peripheral 01/06/2014 Vitamin D deficiency 12/31/2014 Past Surgical History: PAST SURGICAL HISTORY Procedure Laterality Date ANES ARTHROSCOPIC TOTAL SHOULDER REPLACEMENT Right 01/28/2013 [facility] - complete right shoulder replaceement ARTHRD ANT INTERBODY MIN DSC LUMBAR 2009 ARTHROTOMY W/MENISCUS REPAIR KNEE 1981 RIGHT ARTHROTOMY W/MENISCUS REPAIR KNEE 1982 LEFT ARTHRP KNE CONDYLE&PLATU MEDIAL&LAT COMPARTMENTS Right 2007 Knee replacement, total COLONOSCOPY FLX DX W/COLLJ SPEC WHEN PFRMD 09/25/2012 normal colonoscopy - 10 year follow up EGD TRANSORAL BIOPSY SINGLE/MULTIPLE 09/25/2012 mild distal esophagitis HARRIS W/O FACETEC FORAMOT/DSC 09/19 VRT SGM CRV 2007 Laminectomy, cervical PAST SURGICAL HISTORY OF Right 08/23/2021 carpal tunnel release with wrist arthrotomy and synovectomy PAST SURGICAL HISTORY OF Right 08/23/2021 ulnar nerve decompression TONSILLECTOMY PRIMARY/SECONDARY AGE 13/> 1985 Tonsillectomy Family History: FAMILY HISTORY Problem Relation Age of Onset None Mother Cancer Father PANCREAS Diabetes Father Diabetes Sister None Brother Diabetes Paternal Grandmother COPD No Family History Asthma No Family History Social History: Social History Tobacco Use Smoking status: Former Smoker Packs/day: 0.25 Years: 41.00 Pack years: 10.25 Types: Pipe Start date: 1971 Quit date: 12/09/2011 Years since quittin.3 Smokeless tobacco: Never Used Tobacco comment: 1/4 pack of cigs; pipe smoker. None of either since cessation. No ETS in childhoodhome. Vaping Use Vaping Use: Never used Substance Use Topics Alcohol use: Yes Comment: rare Drug use: No Medications: Current Outpatient Medications Medication Sig Magnesium Chloride (SLOW-MAG) 71.5 mg TbEC Take 2 tablets by mouth twice daily. omeprazole (PRILOSEC) 40 mg capsule TAKE ONE CAPSULE BY MOUTH ONCE DAILY ON AN EMPTY STOMACH losartan (COZAAR) 25 mg tablet take 1 tablet by mouth once daily atorvastatin (LIPITOR) 40 mg tablet Take 1 tablet by mouth once daily. For cholesterol. Cholecalciferol, Vitamin D3, (VITAMIN D-3) 50 mcg (2,000 unit) cap Take 1 capsule by mouth once daily. dapagliflozin (FARXIGA) 5 mg tablet Take 1 tablet by mouth once daily. Take one daily in the morning metFORMIN (GLUCOPHAGE) 1,000 mg tablet Take 1 tablet by mouth twice daily with meals. dulaglutide (TRULICITY) 1.5 mg/0.5 mL pen injector Inject 1.5 mg subcutaneously one time a week. Inject once per week. Discard Pen After terbinafine HCl (LAMISIL) 250 mg tablet Take 1 tablet by mouth once daily. urea (CARMOL) 40 % Apply to affected area once daily. fluticasone (FLONASE) 50 mcg/actuation nasal spray One spray each nostril before bed. mometasone-formoterol (DULERA) 100-5 mcg/actuation inhaler Inhale 2 Puffs as instructed twice daily. furosemide (LASIX) 40 mg tablet Take 1 tablet by mouth twice daily. cyanocobalamin (VITAMIN B-12) 1,000 mcg tab Take 1 tablet by mouth once daily. magnesium oxide 400 mg magnesium cap Take 1 capsule by mouth once daily. aspirin, enteric coated (ECOTRIN LOW STRENGTH) 81 mg EC tablet Take 1 tablet by mouth once daily. hydroxychloroquine (PLAQUENIL) 200 mg tablet Take 200 mg by mouth once daily. leflunomide (ARAVA) 10 mg tablet Take 1 tablet by mouth once daily. Prescribed by Dr. Oliva Calcium-Cholecalciferol, D3, (CALCIUM 600 + D,3,) 600 mg calcium- 200 unit cap Take 1 capsule by mouth once daily. predniSONE (DELTASONE) 10 mg tablet Take 1 tablet by mouth once daily as needed for pain. Current Facility-Administered Medications Medication Dose Route Frequency perflutren lipid microspheres 1.3 mL in NaCl (PF) 0.9% 10 mL injection (DEFINITY) INTRAVENOUS DIRECTED PRN sodium chloride 0.9 % (flush) 10 mL (BD POSIFLUSH) 10 mL INTRAVENOUS DIRECTED PRN perflutren lipid microspheres 1.3 mL in NaCl (PF) 0.9% 10 mL injection (DEFINITY) INTRAVENOUS DIRECTED PRN sodium chloride 0.9 % (flush) 10 mL (BD POSIFLUSH) 10 mL INTRAVENOUS DIRECTED PRN Allergies: Gabapentin ROS: General (negative for fatigue, malaise, weight loss/gain) HEENT (negative for headache, earache, recent vision changes, sinus pain, sore throat) Respiratory (no recent shortness of breath, hemoptysis) CV (negative for chest tightness, palpitations) Musculoskeletal (see HPI) Psych (no depression, anxiety) REFERRING PHYSICIAN: Mr. Ronnie Yarbrough was referred to me for consultation by the following physician. This consultation note will be sent to the following physician by either mail or electronic medical record. Leslye Winter [address] [facility] [id number] Ovidio Vincent MD [address] [facility] [id number] Franco Zuñiga MD documented in this encounterSam[facility]07-[facility]22 History of Present illness Narrative* Leslye Winter PA-C - 03/22/2022 7:13 AM EDT Chief Complaint Patient presents with: F/U 6 months HPI Ronnie Yarbrough is a 71 year old male who presents here today for Chronic Medical Conditions.. Patient with hx of DM2, HTN, HLP, COPD, pulm HTN, GERD, multiple myeloma in remission, neuropathy, former smoker, polyarthropathy and those as reviewed/updated below. No specific concerns today. No recent hospitalizations or ER visits. Past medical history, appointments, medications, allergies reviewed. 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 Day: +12; Engrafted Protocol(s): 3422 1C Preparative regimen: melphalan Mobilization regimen: neupogen and plerixafor Stem cell source: apheresis CD34 cell dose (x10e6/kg): 5.14 Date of transplant: 06/15/2018 Cancer of the skin, 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[facility]) 06/13/2018 --ppx ACV and cipro Inflammatory polyarthropathy ([facility]) Leg DVT (deep venous thromboembolism), acute, left ([facility]) 01/02/2018 --acute DVT gastrocnemius found 12/13/2017 --continue apixaban till platelets <50K, last dose 06/21/2018 Low serum vitamin B12 04/22/2021 Lumbar spinal stenosis Medicare annual wellness visit, subsequent 10/06/2021 Medicare part B: Not able to find, Last done: 10/06/2021 Mixed hyperlipidemia 10/31/2006 --will hold atorvastatin d/t interactions with chemotherapy can resume at discharge Multiple myeloma ([facility]) 11/28/2017 Multiple myeloma in remission ([facility]) Obesity 10/01/2012 Osteoarthritis of both hands Pancytopenia due to chemotherapy ([facility]) 06/25/2018 --Transfuse PRBC and platelets per protocol --GCSF Peripheral autonomic neuropathy in disorders classified elsewhere 06/07/2005 Pulmonary hypertension, unspecified ([facility]) 10/23/2019 Reflux esophagitis Spinal stenosis, lumbar region, without neurogenic claudication 11/13/2006 Tobacco abuse 12/27/2011 Quit 2012 Type 2 diabetes mellitus without complication, without long-term current use of insulin ([facility]) 04/12/2018 Venous (peripheral) insufficiency Venous insufficiency, peripheral 01/06/2014 Vitamin D deficiency 12/31/2014 Previous Surgical History PAST SURGICAL HISTORY Procedure Laterality Date ANES ARTHROSCOPIC TOTAL SHOULDER REPLACEMENT Right 01/28/2013 [facility] - complete right shoulder replaceement ARTHRD ANT INTERBODY MIN DSC LUMBAR 2009 ARTHROTOMY W/MENISCUS REPAIR KNEE 1981 RIGHT ARTHROTOMY W/MENISCUS REPAIR KNEE 1982 LEFT ARTHRP KNE CONDYLE&PLATU MEDIAL&LAT COMPARTMENTS Right 2007 Knee replacement, total COLONOSCOPY FLX DX W/COLLJ SPEC WHEN PFRMD 09/25/2012 normal colonoscopy - 10 year follow up EGD TRANSORAL BIOPSY SINGLE/MULTIPLE 09/25/2012 mild distal esophagitis HARRIS W/O FACETEC FORAMOT/DSC 1/2 VRT SGM CRV 2008 Laminectomy, cervical PAST SURGICAL HISTORY OF Right 08/23/2021 carpal tunnel release with wrist arthrotomy and synovectomy PAST SURGICAL HISTORY OF Right 08/23/2021 ulnar nerve decompression TONSILLECTOMY PRIMARY/SECONDARY AGE [id number] Tonsillectomy Family History FAMILY HISTORY Problem Relation Age of Onset None Mother Cancer Father PANCREAS Diabetes Father Diabetes Sister None Brother Diabetes Paternal Grandmother COPD No Family History Asthma No Family History Patient Allergies ALLERGIES Allergen Reactions Gabapentin Other: See Comments Depression/suicidal ideation Current Medications Current Outpatient Medications on File Prior to Visit Medication Sig Magnesium Chloride (SLOW-MAG) 71.5 mg TbEC Take 2 tablets by mouth twice daily. omeprazole (PRILOSEC) 40 mg capsule TAKE ONE CAPSULE BY MOUTH ONCE DAILY ON AN EMPTY STOMACH predniSONE (DELTASONE) 10 mg tablet Take 1 tablet by mouth once daily as needed for pain. losartan (COZAAR) 25 mg tablet take 1 tablet by mouth once daily atorvastatin (LIPITOR) 40 mg tablet Take 1 tablet by mouth once daily. For cholesterol. Cholecalciferol, Vitamin D3, (VITAMIN D-3) 50 mcg (2,000 unit) cap Take 1 capsule by mouth once daily. dapagliflozin (FARXIGA) 5 mg tablet Take 1 tablet by mouth once daily. Take one daily in the morning metFORMIN (GLUCOPHAGE) 1,000 mg tablet Take 1 tablet by mouth twice daily with meals. dulaglutide (TRULICITY) 1.5 mg/0.5 mL pen injector Inject 1.5 mg subcutaneously one time a week. Inject once per week. Discard Pen After terbinafine HCl (LAMISIL) 250 mg tablet Take 1 tablet by mouth once daily. urea (CARMOL) 40 % Apply to affected area once daily. fluticasone (FLONASE) 50 mcg/actuation nasal spray One spray each nostril before bed. mometasone-formoterol (DULERA) 100-5 mcg/actuation inhaler Inhale 2 Puffs as instructed twice daily. furosemide (LASIX) 40 mg tablet Take 1 tablet by mouth twice daily. cyanocobalamin (VITAMIN B-12) 1,000 mcg tab Take 1 tablet by mouth once daily. magnesium oxide 400 mg magnesium cap Take 1 capsule by mouth once daily. aspirin, enteric coated (ECOTRIN LOW STRENGTH) 81 mg EC tablet Take 1 tablet by mouth once daily. hydroxychloroquine (PLAQUENIL) 200 mg tablet Take 200 mg by mouth once daily. leflunomide (ARAVA) 10 mg tablet Take 1 tablet by mouth once daily. Prescribed by Dr. Oliva Calcium-Cholecalciferol, D3, (CALCIUM 600 + D,3,) 600 mg calcium- 200 unit cap Take 1 capsule by mouth once daily. Current Facility-Administered Medications on File Prior to Visit Medication perflutren lipid microspheres 1.3 mL in NaCl (PF) 0.9% 10 mL injection (DEFINITY) sodium chloride 0.9 % (flush) 10 mL (BD POSIFLUSH) perflutren lipid microspheres 1.3 mL in NaCl (PF) 0.9% 10 mL injection (DEFINITY) sodium chloride 0.9 % (flush) 10 mL (BD POSIFLUSH) Social History Social History Tobacco Use Smoking status: Former Smoker Packs/day: 0.25 Years: 41.00 Pack years: 10.25 Types: Pipe Start date: 1971 Quit date: 12/09/2011 Years since quittin.2 Smokeless tobacco: Never Used Tobacco comment: 1/4 pack of cigs; pipe smoker. None of either since cessation. No ETS in [facility]. Vaping Use Vaping Use: Never used Substance Use Topics Alcohol use: Yes Comment: rare Drug use: No Review of Symptoms REVIEW OF SYSTEMS GENERAL: No weight loss, malaise or fevers NECK: Negative for lumps, goiter, pain and significant neck swelling RESPIRATORY: Negative for worsening cough, hemoptysis, wheezing, COPD, dyspnea or shortness of breath CARDIOVASCULAR: Negative for chest pain, hypertension, CHF or palpitations NEURO: No history of headaches, syncope, paralysis, seizures or tremors EXAM: BP 126/86 (BP Site: Left Arm, BP Position: Sitting, BP Cuff Size: Regular Adult) Pulse 72 Temp 36.4 C (97.6 F) Resp 18 Wt 99.3 kg (219 lb) BMI 31.42 kg/m General Appearance: Well appearing, alert, in no acute distress, well-hydrated, well nourished.. Neck: Supple, no adenopathy; thyroid symmetric, normal size, no bruits. Lungs: Lungs clear to auscultation. No wheezing, rhonchi, rales.. Heart: RRR without murmur, gallop, or rubs. No ectopy. Extremities: No deformities, edema, skin discoloration, clubbing or cyanosis. Good capillary refill. . Peripheral Pulses: Normal. Health Maintenance List ADVANCE DIRECTIVE DISCUSSION Never done HBA1C due on 04/06/2022 COVID-19 VACCINE(5 - Booster for Moderna series) due on 04/28/2022 INFLUENZA(1) due on 05/19/2022 DEPRESSION SCREENING due on 07/10/2022 DILATED RETINAL EXAM due on 09/09/2022 COLORECTAL CANCER SCREENING due on 09/25/2022 DIABETIC FOOT EXAM due on 10/06/2022 BP CONTROLLED (<130/80) due on 10/06/2022 URINE ALBUMIN:CREATININE RATIO due on 10/07/2022 LDL CHOLESTEROL due on 10/07/2022 ANNUAL PCP TEAM CHRONIC DISEASE VISIT due on 03/22/2023 DTAP,TDAP,TD(6 - Td or Tdap) due on 09/23/2029 SPIROMETRY Completed ABDOMINAL AORTIC ANEURYSM SCREENING Completed SHINGRIX VACCINE Completed PNEUMOCOCCAL: 65+ Completed HEPATITIS C SCREENING Discontinued Data reviewed n/a ASSESSMENT/PLAN: 1. Type 2 diabetes mellitus without complication, without long-term current use of insulin (HCC) - ICD9: 250.00, ICD10: E11.9 (primary diagnosis) Await labs - Continue current medications - Encouraged regular aerobic exercise and weight loss - Daily Asprin therapy recommended - HGB A1C - COMP METABOLIC PANEL 2. Mixed hyperlipidemia - ICD9: 272.2, ICD10: E78.2 - to be determined upon return of lab results - Encouraged following a low carbohydrate, healthy oil intake diet. - Continue current therapy. - LIPID PANEL, NONFASTING 3. Essential hypertension - ICD9: 401.9, ICD10: I10 - good control - Continue current medication(s) - Recommended regular aerobic exercise. - Recommend home blood pressure monitoring, to bring results in on next visit - Goal of BP <130/80 4. Chronic obstructive pulmonary disease, unspecified COPD type (HCC) - ICD9: 496, ICD10: J44.9 Stable. Continue with pulm 5. Pulmonary hypertension, unspecified (HCC) - ICD9: 416.8, ICD10: I27.20 stable 6. Multiple myeloma in remission (HCC) - ICD9: 203.01, ICD10: C90.01 Continue with oncology 7. 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HCC) - ICD9: V42.82, ICD10: Z94.84 8. 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) - ICD9: 284.11, ICD10: D61.810 Continue with oncology 9. Gastroesophageal reflux disease, unspecified whether esophagitis present - ICD9: 530.81, ICD10: K21.9 - stable 10. Peripheral autonomic neuropathy in disorders classified elsewhere - ICD9: 337.1, ICD10: G99.0 11. Inflammatory polyarthropathy (HCC) - ICD9: 714.9, ICD10: M06.4 Will consult rheum - CONSULT TO RHEUM/IMMUN DISEASE 12. Hypomagnesemia - ICD9: 275.2, ICD10: E83.42 - MAGNESIUM BLD 13. Low serum vitamin B12 - ICD9: 266.2, ICD10: E53.8 - VITAMIN B12 BLOOD 14. Ganglion cyst - ICD9: 727.43, ICD10: M67.40 Set up with ortho - CONSULT TO ORTHOPAEDICS Leslye Winter PA-C documented in this encounterSam[facility]06-30-2022 Miscellaneous Notes* Telephone Encounter - Ela Alvarez MD - 03/17/2022 7:53 AM EDT Patient's request for medication is as follows Signed Prescriptions Disp Refills Magnesium Chloride (SLOW-MAG) 71.5 mg TbEC 120 tablet 3 Sig: Take 2 tablets by mouth twice daily. WILFREDO: No Authorizing Provider: ELA ALVAREZ Order entered - please phone pharmacy and notify patient. Ela Alvarez MD * Telephone Encounter - Yesenia Quiles LPN - 03/17/2022 7:28 AM EDT Patient has been identified by name and date of : Yes Pending Prescriptions Disp Refills SLOW-MAG 71.5 MG TABLET,DELAYED RELEASE 120 tablet 3 Sig: Take 2 tablets by mouth twice daily. WILFREDO: No RX INSTRUCTIONS: Patient aware RX will be sent to pharmacy. No need to notify patient. Yesenia Quiles LPN documented in this encounterSam[facility]06-30-2022 Miscellaneous Notes* Telephone Encounter - Shey Liu LPN - 03/17/2022 7:36 AM EDT Patient has been identified by name and date of : Yes Patient phones for refill(s): Pending Prescriptions Disp Refills OMEPRAZOLE 40 MG CAPSULE,DELAYED RELEASE 90 capsule 1 Sig: TAKE ONE CAPSULE BY MOUTH ONCE DAILY ON AN EMPTY STOMACH WILFREDO: No Date of last office visit in primary care: 10/06/21 next apt 03/22/22 Last 2 Encounter Wt Readings: Date: Wt: 01/20/2022 100.9 kg (222 lb 6.4 oz) 12/21/2021 99.1 kg (218 lb 8 oz) Previous labs/tests for medication: Not applicable Please advise. Thank you. Shey Liu LPN documented in this encounterSam[facility]itan [facility]06-29-2022 History of Present illness Narrative* Nargis Ortega RN - 03/16/2022 9:35 AM EDT INSIGHT CDM TELEPHONIC OUTREACH Provider Action/FYI: Pt reports he is feeling a little achy due to arthritis, but overall feeling good. Patient had no questions, concerns, needs at this time. Contact made with patient: Yes Patient identified by name and . Discussed care with patient It s nice talking to you again. As a reminder, this is our bi-weekly check-in where I will be asking you questions about your health. This will only take a few minutes of your time. Is this a good time? Yes Symptoms What Chronic Disease(s) does the patient have: COPD Do you check your blood pressures at home? No Do you have new or worse shortness of breath with activity? No Do you have new or worsening cough? No Do you have new or worsening wheezing? No Do you need to use your rescue (Albuterol) inhaler or nebulizer more often than normal? No Are you having any other symptoms that your PCP needs to know about? No Symptom Escalation The patient required an escalation for symptom(s)? No Medications Do you have any questions about taking your medication or which medications you should be on? No Do you need any medication refills at this time, including any of the medications you might take only when needed? No Social We would like to make sure you have what you need so that your basic needs are met- including your personal safety, food, housing and medications? Would you like to speak with a social work senior engineering team leader to help give you support for any of these needs? No It can be normal to feel anxious or down during a time like this. Would you like to talk to a mental health professional about how you have been feeling? No Closing Thank you for taking the time to talk with me today. We want to work with you to ensure that we arekeeping your medical condition(s) well-controlled and to keep you healthy and out of the doctor's office or hospital. It s also not too late for me to sign you up for automated weekly questionnaires through [employer]. This is an easy way for us to stay connected each week. Are you interested? No, I understand. We can always sign you up in the future if you change your mind. Just as a reminder, will continue to call you every other week to check in on your health. Our calls should take 10-15 minutes or less. Remember, if you have concerns in between our calls, please call your PCP's office right away. Thank you. Enter next patient outreach date for two weeks on the same day of the week as today in the Track PtOutreach and End outreach. documented in this encounterSam[facility]05-20-2022 Miscellaneous Notes* Telephone Encounter - Marina Tilley RN - 02/04/2022 2:44 PM EDT Patient notified of provider's message below. Patient verbalizes understanding. Marnia Tilley RN * Telephone Encounter - Esvin Marcus - 02/04/2022 2:34 PM EDT Please call patient to inform him that I typically prescribe for three months and then it is wait and see if this helps Esvin Marcus DPM * Telephone Encounter - Shey Marjorie - 01/17/2022 11:55 AM EDT Patient electronically requesting refills as follows: Pending Prescriptions Disp Refills TERBINAFINE HCL 250 MG TABLET 30 tablet 2 Sig: Take 1 tablet by mouth once daily. WIFLREDO: No Please review and advise. Shey Bennettes documented in this encounterSamaritan [facility] Center05-12-2022 Miscellaneous Notes* Telephone Encounter - Loretta Leon PA-C - 01/27/2022 9:35 AM EDT Spoke to patient and advised him to start Probiotic. He states diarrhea is improving with stopping Augmentin. Will switch to Azithromycin. If patient, experiences increase in diarrhea advised to stop immediately. Loretta Leon PA-C documented in this encounterSamaritan [facility]05-09-2022 History of Present illness Narrative* Nargis Ortega RN - 01/24/2022 2:32 PM EDT INSIGHT CDM TELEPHONIC OUTREACH Provider Action/FYI: Pt reports he is doing good, states he is feeling much better since starting Augmentin. Pt had no questions/concerns/needs at this time. Contact made with patient: Yes Patient identified by name and . Discussed care with patient It s nice talking to you again. As a reminder, this is our bi-weekly check-in where I will be asking you questions about your health. This will only take a few minutes of your time. Is this a good time? Yes Symptoms What Chronic Disease(s) does the patient have: COPD Do you check your blood pressures at home? No Do you have new or worse shortness of breath with activity? No Do you have new or worsening cough? No Do you have new or worsening wheezing? No Do you need to use your rescue (Albuterol) inhaler or nebulizer more often than normal? No Are you having any other symptoms that your PCP needs to know about? No Symptom Escalation The patient required an escalation for symptom(s)? No Medications Do you have any questions about taking your medication or which medications you should be on? No Do you need any medication refills at this time, including any of the medications you might take only when needed? No Social We would like to make sure you have what you need so that your basic needs are met- including your personal safety, food, housing and medications? Would you like to speak with a social work senior engineering team leader to help give you support for any of these needs? No It can be normal to feel anxious or down during a time like this. Would you like to talk to a mental health professional about how you have been feeling? No Closing Thank you for taking the time to talk with me today. We want to work with you to ensure that we arekeeping your medical condition(s) well-controlled and to keep you healthy and out of the doctor's office or hospital. It s also not too late for me to sign you up for automated weekly questionnaires through [employer]. This is an easy way for us to stay connected each week. Are you interested? No, I understand. We can always sign you up in the future if you change your mind. Just as a reminder, will continue to call you every other week to check in on your health. Our calls should take 10-15 minutes or less. Remember, if you have concerns in between our calls, please call your PCP's office right away. Thank you. Enter next patient outreach date for two weeks on the same day of the week as today in the Track PtOutreach and End outreach. * Nargis Ortega RN - 01/24/2022 9:11 AM EDT INSIGHT CDM TELEPHONIC OUTREACH Provider Action/FYI: Contact made with patient: No - Left message Hello my name is Nargis Ortega RN your Blanket Binder [facility] the [facility] I am calling today for your bi-weekly check in. I am sorry I missed your call. I will reach out to you again tomorrow. (if the third call I will reach out to you again next week) Enter next patient outreach date for the following business day using the Track Pt Outreach. End outreach. documented in this encounterSamaritan [facility]05-05-2022 History of Present illness Narrative* Loretta Leon PA-C - 01/20/2022 9:04 AM EDT [facility] [place], 01/20/2022: Name: Ronnie Yarbrough : 1950 The patient is here today by himself. HPI: Ronnie Yarbrough is a 71 yo male with pmh significant for OA, GERD, DM, multiple myeloma s/p bone marrowtransplant, HTN, hyperlipidemia, CHF, DVT, pulmonary hypertension, spinal stenosis, and COPD. Former smoker, quit 2011. 10.25 pack years. The patient is here for follow up of COPD. Since the last Pulmonary Clinic visit 07/22/2021, the patient has not required ED care for exacerbation. There has been no hospital admission for exacerbation. Claims to be consistently compliant with prescribed maintenance Rx Dulera twice daily. It just isn't working anymore. Not using rescue bronchodilator. Daily increased cough. Yellow to green sputum. Patient states it has been this way since having a cold in November. Was in [place] for a mission trip and woke up one day with sinus congestion and cough. No hemoptysis or pleuritic chest pain. Variable wheezing. No dyspnea at rest. Exertional dyspnea has not changed. No fevers or chills. Lower extremity edema. Taking Lasix 40 mg daily. Patient decided not to schedule sleep study. I don't think I need it. PMH: Updated with patient today. FAMH: Updated with patient today. SOCH: Updated with patient today. IMMUNIZATIONS Prevnar 13 - 09/23/2019, 07/23/2019, 07/30/2018, 07/07/2016 Pneumovax - 03/15/2021 Influenza - 06/11/2021 COVID-19 - 12/27/2021, 07/21/2021, 01/07/2021, 12/10/2020 ROS: See HPI. Allergies were reviewed and updated, and medications were reconciled with the patient. PHYSICAL EXAMINATION: BP 131/68 (BP Site: Right Arm, BP Position: Sitting, BP Cuff Size: Large Adult) Pulse 91 Temp 36.3 C (97.4 F) (Temporal Artery) Resp 18 Ht 177.8 cm (5' 10) Wt 100.9 kg (222 lb 6.4 oz) SpO2 96% BMI 31.91 kg/m Gen: No acute distress. Cooperative with examination. ENT: Oral hygeine and dentition good. Pharynx clear. No halitosis. No sign of oral thrush. Resp: No stridor, accessory respiratory muscle use, supra-sternal or intercostal retractions. No wheezes, crackles. CV: Regular rythm. Heart tones normal. Radial pulses normal. Abd: Non distended. MSK: No kyphoscoliosis. Ext: Warm and well perfused. No clubbing, cyanosis. Trace bilateral edema. Compression stockings inplace. Skin: No rash, ecchymoses. Neuro: Mental status normal. Affect normal. No tremor. DATA REVIEW: DATE: 07/22/2021 10/25/2019 09/24/2019 FVC 4.54, 108% 5.29, 102.6% 4.23, 99% FEV1 2.77, 87% 4.01, 66% 2.71, 83% -1% post BD FEV1/FVC 0.61 0.88 0.64 DLco xx 34.26, 78.9% xx Echo, 07/26/2021 CONCLUSIONS: - Technically difficult exam due to body habitus and COPD. - Exam indication: Shortness of Breath - The left ventricle is small. Left ventricular systolic function is normal. EF = 63 5% (2D biplane) Grade I left ventricular diastolic dysfunction. - The right ventricle is normal in size. Right ventricular systolic function is normal. - There are no significant valvular abnormalities. - Exam was compared with the prior echocardiographic exam performed on 10/17/2019, no significant change. SSMENT/PLAN: 1. 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HCC) - ICD9: 491.20, ICD10: J44.9 (primary diagnosis) Continue with Dulera 2 inhalations twice daily. Rinse mouth after each use to help prevent oral thrush. Albuterol HFA inhaler, 2 inhalations 10 15 minutes prior to activities associated with shortness ofbreath, and as needed for rescue relief of shortness of breath or wheezing, up to 4 times daily. Up to date on annual influenza, pneumococcal and Covid 19 vaccines. - SPIROMETRY BASELINE ONLY 2. Cough - ICD9: 786.2, ICD10: R05.9 Treat with Amoxicillin 1 tablet twice daily for 7 days. If no significant improvement, will check CXR. - AMOXICILLIN 875 MG-POTASSIUM CLAVULANATE 125 MG TABLET 3. Non-seasonal allergic rhinitis, unspecified trigger - ICD9: 477.8, ICD10: J30.89 Continue with Flonase nasal spray nightly. 4. Pulmonary arterial hypertension (HCC) - ICD9: 416.8, ICD10: I27.21 Most recent echo 07/2021. RVSP not estimated. Obtain echo in July 2022. Previously ordered PSG to evaluate for LADARIUS, however, patient did not schedule and declines having it done. - ECHO - PERFLUTREN LIPID MICROSPHERES 1.1 MG/ML INJECTION IN NS 10 ML - SODIUM CHLORIDE 0.9 % (FLUSH) INJECTION SYRINGE 5. Acute bronchitis, unspecified organism - ICD9: 466.0, ICD10: J20.9 See #2. 6. Former smoker - ICD9: V15.82, ICD10: Z87.891 I addressed the questions of the patient, and he expressed understanding and acceptance of my answers. Loretta Leon PA-C documented [facility] Miscellaneous Notes* Telephone Encounter - Ovidio Vincent MD - 01/06/2022 10:21 AM EDT The following approved medication requests have been transmitted electronically. Signed Prescriptions Disp Refills losartan (COZAAR) 25 mg tablet 90 tablet 1 Sig: take 1 tablet by mouth once daily WILFREDO: No Authorizing Provider: OVIDIO VINCENT MD * Telephone Encounter - Madison Hyde LPN - 01/06/2022 9:35 AM EDT Patient phones requesting refills as follows: Pending Prescriptions Disp Refills LOSARTAN 25 MG TABLET 90 tablet 5 Sig: take 1 tablet by mouth once daily WILFREDO: Yes MCKENNA-10/06/21 Labs-12/21/21 NOV-03/22/22 med filled 08/31/21 Please review and advise. Madison Hyde LPN documented in this [facility] History of Present illness Narrative* Nargis Ortega RN - 12/27/2021 2:28 PM EDT INSIGHT [facility] TELEPHONIC OUTREACH Provider Action/FYI: Pt reports he is doing good, had covid booster today, chart has been updated to reflect. Pt had no questions/concerns/needs at this time. Contact made with patient: Yes Patient identified by name and . Discussed care with patient It s nice talking to you again. As a reminder, this is our bi-weekly check-in where I will be asking you questions about your health. This will only take a few minutes of your time. Is this a good time? Yes Symptoms What Chronic Disease(s) does the patient have: COPD Do you check your blood pressures at home? No Do you have new or worse shortness of breath with activity? No Do you have new or worsening cough? No Do you have new or worsening wheezing? No Do you need to use your rescue (Albuterol) inhaler or nebulizer more often than normal? No Are you having any other symptoms that your PCP needs to know about? No Symptom Escalation The patient required an escalation for symptom(s)? No Medications Do you have any questions about taking your medication or which medications you should be on? No Do you need any medication refills at this time, including any of the medications you might take only when needed? No Social We would like to make sure you have what you need so that your basic needs are met- including your personal safety, food, housing and medications? Would you like to speak with a social work senior engineering team leader to help give you support for any of these needs? No It can be normal to feel anxious or down during a time like this. Would you like to talk to a mental health professional about how you have been feeling? No Closing Thank you for taking the time to talk with me today. We want to work with you to ensure that we arekeeping your medical condition(s) well-controlled and to keep you healthy and out of the doctor's office or hospital. It s also not too late for me to sign you up for automated weekly questionnaires through [employer]. This is an easy way for us to stay connected each week. Are you interested? No, I understand. We can always sign you up in the future if you change your mind. Just as a reminder, will continue to call you every other week to check in on your health. Our calls should take 10-15 minutes or less. Remember, if you have concerns in between our calls, please call your PCP's office right away. Thank you. Enter next patient outreach date for two weeks on the same day of the week as today in the Track PtOutreach and End outreach. documented in this encounterSam[facility] History of Past illness Narrative* Problem Noted Date Resolved Date Chest pressure 10/23/2019 11/25/2019 Wheezing 10/23/2019 11/25/2019 Shortness of breath 10/22/2019 11/25/2019 Overview: Admitted with shortness of breath and fluid retention due to comp,ex history, admitted for management and work-up to determine cardiac causes versus primary pulmonary. He was diuresed with IV lasix, and lost 13 pounds in 3 days. Feels much better able to walk in the hallway few laps. Pulmonary team consulted work-up in progress Cardiac testing including echo, PET negative. Nuclear test to rule out amyloid - neg for cardiac Amyloid. Discussion with pulmonary team: No need for RHC this admission. Recommend repeat echo in 3 to 4 weeks (when euvolemic) and if RVSP is >50 mmhg, will need a right heart cath (pulmonary arterial HTN) Per HF team: Would start spironolactone 12.5, on discharge arrange f/u with Dr. Rosenbaum's office for electrolyte monitoring Can stop carvedilol given no indication (ischemia ruled out, and HFrEF ruled out) - Would not continue imdur on discharge given no indication - Lisinopril can be restarted as an outpatient as needed for HTN if renal function is stable Dr. Mcpherson recommends to resume home dose of 40mg daily. Annie Corrales RN ORTHOTIC TECHNICIAN.[employer] Acute on chronic systolic CHF (congestive heart failure) 10/04/2019 11/25/2019 Fall 07/17/2018 11/25/2019 Difficulty coping 06/20/2018 06/26/2018 Overview: --social work following for supportive counseling --Zyprexa added for recent depressed mood --mood has improved, gabapentin was DC'd as well daughter recalled patient taking this in the past and having severe depression and suicidal ideation (added to allergies) Hyperkalemia 06/18/2018 2018 Overview: K 5.2, will d/c lisinopril Chemotherapy induced nausea and vomiting 018 07/02/2018 Overview: --compazine, Ativan and zofran prn. JOSE ENRIQUE (acute kidney injury) 06/16/20182017 Overview: Acute increase of sCr to 1.5 on 06/16, but now down to 1.03 ( at baseline). will monitor at this time, if sCr rises, then will stop lisinopril Bilateral lower extremity edema 06/13/2018 07/17/2018 Overview: --uses 40 lasix po at home as needed --diurese as needed. 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 Leg DVT (deep venous thromboembolism), acute, le ft 01/02/2018 11/25/2019 Overview: --acute DVT gastrocnemius found 12/13/2017 --continue apixaban till platelets <50K, last dose 06/21/2018 Adjustment insomnia 12/07/2017 05/14/2018 Class 1 obesity due to exces s calories with serious comorbidity and body mass index (BMI) of 34.0 to 34.9 in adult 06/26/2017 11/25/2019 Vitamin D deficiency 12/31/2014 06/27/2017 Acute bronchitis with chroni c obstructive pulmonary disease (COPD) 12/30/2014 06/26/2017 Venous insufficiency, peripheral 01/06/2014 11/25/2019 Esophagitis, unspecified 09/25/2012 014 Special screening for malignant neoplasms, colon 09/06/2012 06/13/2018 Tobacco abuse 12/27/2011 10/01/2012 documented as of this encounter (statuses as of 12/27/2021) [facility] of Past illness Narrative* Problem Noted Date Resolved Date Chest pressure 10/23/2019 11/25/2019 Wheezing 10/23/2019 11/25/2019 Shortness of breath 10/22/2019 11/25/2019 Overview: Admitted with shortness of breath and fluid retention due to comp,ex history, admitted for management and work-up to determine cardiac causes versus primary pulmonary. He was diuresed with IV lasix, and lost 13 pounds in 3 days. Feels much better able to walk in the hallway few laps. Pulmonary team consulted work-up in progress Cardiac testing including echo, PET negative. Nuclear test to rule out amyloid - neg for cardiac Amyloid. Discussion with pulmonary team: No need for RHC this admission. Recommend repeat echo in 3 to 4 weeks (when euvolemic) and if RVSP is >50 mmhg, will need a right heart cath (pulmonary arterial HTN) Per HF team: Would start spironolactone 12.5, on discharge arrange f/u with Dr. Rosenbaum's office for electrolyte monitoring Can stop carvedilol given no indication (ischemia ruled out, and HFrEF ruled out) - Would not continue imdur on discharge given no indication - Lisinopril can be restarted as an outpatient as needed for HTN if renal function is stable Dr. Mcpherson recommends to resume home dose of 40mg daily. Annie Corrales RN ORTHOTIC TECHNICIAN.[employer]UT [employer] Acute on chronic systolic CHF (congestive heart failure) 10/04/2019 11/25/2019 Fall 07/17/2018 11/25/2019 Difficulty coping 06/20/2018 06/26/2018 Overview: --social work following for supportive counseling --Zyprexa added for recent depressed mood --mood has improved, gabapentin was DC'd as well daughter recalled patient taking this in the past and having severe depression and suicidal ideation (added to allergies) Hyperkalemia 06/18/2018 2018 Overview: K 5.2, will d/c lisinopril Chemotherapy induced nausea and vomiting 018 07/02/2018 Overview: --compazine, Ativan and zofran prn. JOSE ENRIQUE (acute kidney injury) 06/16/20182017 Overview: Acute increase of sCr to 1.5 on 06/16, but now down to 1.03 ( at baseline). will monitor at this time, if sCr rises, then will stop lisinopril Bilateral lower extremity edema 06/13/2018 07/17/2018 Overview: --uses 40 lasix po at home as needed --diurese as needed. 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 Leg DVT (deep venous thromboembolism), acute, le ft 01/02/2018 11/25/2019 Overview: --acute DVT gastrocnemius found 12/13/2017 --continue apixaban till platelets <50K, last dose 06/21/2018 Adjustment insomnia 12/07/2017 05/14/2018 Class 1 obesity due to exces s calories with serious comorbidity and body mass index (BMI) of 34.0 to 34.9 in adult 06/26/2017 11/25/2019 Vitamin D deficiency 12/31/2014 06/27/2017 Acute bronchitis with chroni c obstructive pulmonary disease (COPD) 12/30/2014 06/26/2017 Venous insufficiency, peripheral 01/06/2014 11/25/2019 Esophagitis, unspecified 09/25/2012 04/21/2 014 Special screening for malignant neoplasms, colon 09/06/2012 06/13/2018 Tobacco abuse 12/27/2011 10/01/2012 documented as of this encounter (statuses as of 01/06/2022) [facility] of Past illness Narrative* Problem Noted Date Resolved Date Chest pressure 10/23/2019 11/25/2019 Wheezing 10/23/2019 11/25/2019 Shortness of breath 10/22/2019 11/25/2019 Overview: Admitted with shortness of breath and fluid retention due to comp,ex history, admitted for management and work-up to determine cardiac causes versus primary pulmonary. He was diuresed with IV lasix, and lost 13 pounds in 3 days. Feels much better able to walk in the hallway few laps. Pulmonary team consulted work-up in progress Cardiac testing including echo, PET negative. Nuclear test to rule out amyloid - neg for cardiac Amyloid. Discussion with pulmonary team: No need for RHC this admission. Recommend repeat echo in 3 to 4 weeks (when euvolemic) and if RVSP is >50 mmhg, will need a right heart cath (pulmonary arterial HTN) Per HF team: Would start spironolactone 12.5, on discharge arrange f/u with Dr. Rosenbaum's office for electrolyte monitoring Can stop carvedilol given no indication (ischemia ruled out, and HFrEF ruled out) - Would not continue imdur on discharge given no indication - Lisinopril can be restarted as an outpatient as needed for HTN if renal function is stable Dr. Mcpherson recommends to resume home dose of 40mg daily. Annie Corrales RN ORTHOTIC TECHNICIAN.[employer] Acute on chronic systolic CHF (congestive heart failure) 10/04/2019 11/25/2019 Fall 07/17/2018 11/25/2019 Difficulty coping 06/20/2018 06/26/2018 Overview: --social work following for supportive counseling --Zyprexa added for recent depressed mood --mood has improved, gabapentin was DC'd as well daughter recalled patient taking this in the past and having severe depression and suicidal ideation (added to allergies) Hyperkalemia 06/18/2018 2018 Overview: K 5.2, will d/c lisinopril Chemotherapy induced nausea and vomiting 018 07/02/2018 Overview: --compazine, Ativan and zofran prn. JOSE ENRIQUE (acute kidney injury) 06/16/20182017 Overview: Acute increase of sCr to 1.5 on 06/16, but now down to 1.03 ( at baseline). will monitor at this time, if sCr rises, then will stop lisinopril Bilateral lower extremity edema 06/13/2018 07/17/2018 Overview: --uses 40 lasix po at home as needed --diurese as needed. 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 Leg DVT (deep venous thromboembolism), acute, le ft 01/02/2018 11/25/2019 Overview: --acute DVT gastrocnemius found 12/13/2017 --continue apixaban till platelets <50K, last dose 06/21/2018 Adjustment insomnia 12/07/2017 05/14/2018 Class 1 obesity due to exces s calories with serious comorbidity and body mass index (BMI) of 34.0 to 34.9 in adult 06/26/2017 11/25/2019 Vitamin D deficiency 12/31/2014 06/27/2017 Acute bronchitis with chroni c obstructive pulmonary disease (COPD) 12/30/2014 06/26/2017 Venous insufficiency, peripheral 01/06/2014 11/25/2019 Esophagitis, unspecified 09/25/2012 014 Special screening for malignant neoplasms, colon 09/06/2012 06/13/2018 Tobacco abuse 12/27/2011 10/01/2012 documented as of this encounter (statuses as of 01/20/2022) [facility] of Past illness Narrative* Problem Noted Date Resolved Date Chest pressure 10/23/2019 11/25/2019 Wheezing 10/23/2019 11/25/2019 Shortness of breath 10/22/2019 11/25/2019 Overview: Admitted with shortness of breath and fluid retention due to comp,ex history, admitted for management and work-up to determine cardiac causes versus primary pulmonary. He was diuresed with IV lasix, and lost 13 pounds in 3 days. Feels much better able to walk in the hallway few laps. Pulmonary team consulted work-up in progress Cardiac testing including echo, PET negative. Nuclear test to rule out amyloid - neg for cardiac Amyloid. Discussion with pulmonary team: No need for RHC this admission. Recommend repeat echo in 3 to 4 weeks (when euvolemic) and if RVSP is >50 mmhg, will need a right heart cath (pulmonary arterial HTN) Per HF team: Would start spironolactone 12.5, on discharge arrange f/u with Dr. Rosenbaum's office for electrolyte monitoring Can stop carvedilol given no indication (ischemia ruled out, and HFrEF ruled out) - Would not continue imdur on discharge given no indication - Lisinopril can be restarted as an outpatient as needed for HTN if renal function is stable Dr. Mcpherson recommends to resume home dose of 40mg daily. Annie Corrales, RN ORTHOTIC TECHNICIAN.[employer] Acute on chronic systolic CHF (congestive heart failure) 10/04/2019 11/25/2019 Fall 07/17/2018 11/25/2019 Difficulty coping 06/20/2018 06/26/2018 Overview: --social work following for supportive counseling --Zyprexa added for recent depressed mood --mood has improved, gabapentin was DC'd as well daughter recalled patient taking this in the past and having severe depression and suicidal ideation (added to allergies) Hyperkalemia 06/18/2018 2018 Overview: K 5.2, will d/c lisinopril Chemotherapy induced nausea and vomiting 018 07/02/2018 Overview: --compazine, Ativan and zofran prn. JOSE ENRIQUE (acute kidney injury) 06/16/20182017 Overview: Acute increase of sCr to 1.5 on 06/16, but now down to 1.03 ( at baseline). will monitor at this time, if sCr rises, then will stop lisinopril Bilateral lower extremity edema 06/13/2018 07/17/2018 Overview: --uses 40 lasix po at home as needed --diurese as needed. 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 Leg DVT (deep venous thromboembolism), acute, le ft 01/02/2018 11/25/2019 Overview: --acute DVT gastrocnemius found 12/13/2017 --continue apixaban till platelets <50K, last dose 06/21/2018 Adjustment insomnia 12/07/2017 05/14/2018 Class 1 obesity due to exces s calories with serious comorbidity and body mass index (BMI) of 34.0 to 34.9 in adult 06/26/2017 11/25/2019 Vitamin D deficiency 12/31/2014 06/27/2017 Acute bronchitis with chroni c obstructive pulmonary disease (COPD) 12/30/2014 06/26/2017 Venous insufficiency, peripheral 01/06/2014 11/25/2019 Esophagitis, unspecified 09/25/2012 014 Special screening for malignant neoplasms, colon 09/06/2012 06/13/2018 Tobacco abuse 12/27/2011 10/01/2012 documented as of this encounter (statuses as of 01/24/2022) [facility] of Past illness Narrative* Problem Noted Date Resolved Date Chest pressure 10/23/2019 11/25/2019 Wheezing 10/23/2019 11/25/2019 Shortness of breath 10/22/2019 11/25/2019 Overview: Admitted with shortness of breath and fluid retention due to comp,ex history, admitted for management and work-up to determine cardiac causes versus primary pulmonary. He was diuresed with IV lasix, and lost 13 pounds in 3 days. Feels much better able to walk in the hallway few laps. Pulmonary team consulted work-up in progress Cardiac testing including echo, PET negative. Nuclear test to rule out amyloid - neg for cardiac Amyloid. Discussion with pulmonary team: No need for RHC this admission. Recommend repeat echo in 3 to 4 weeks (when euvolemic) and if RVSP is >50 mmhg, will need a right heart cath (pulmonary arterial HTN) Per HF team: Would start spironolactone 12.5, on discharge arrange f/u with Dr. Rosenbaum's office for electrolyte monitoring Can stop carvedilol given no indication (ischemia ruled out, and HFrEF ruled out) - Would not continue imdur on discharge given no indication - Lisinopril can be restarted as an outpatient as needed for HTN if renal function is stable Dr. Mcpherson recommends to resume home dose of 40mg daily. Annie Corrales, RN ORTHOTIC TECHNICIAN.[employer] Acute on chronic systolic CHF (congestive heart failure) 10/04/2019 11/25/2019 Fall 07/17/2018 11/25/2019 Difficulty coping 06/20/2018 06/26/2018 Overview: --social work following for supportive counseling --Zyprexa added for recent depressed mood --mood has improved, gabapentin was DC'd as well daughter recalled patient taking this in the past and having severe depression and suicidal ideation (added to allergies) Hyperkalemia 06/18/2018 2018 Overview: K 5.2, will d/c lisinopril Chemotherapy induced nausea and vomiting 018 07/02/2018 Overview: --compazine, Ativan and zofran prn. JOSE ENRIQUE (acute kidney injury) 06/16/20182017 Overview: Acute increase of sCr to 1.5 on 06/16, but now down to 1.03 ( at baseline). will monitor at this time, if sCr rises, then will stop lisinopril Bilateral lower extremity edema 06/13/2018 07/17/2018 Overview: --uses 40 lasix po at home as needed --diurese as needed. 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 Leg DVT (deep venous thromboembolism), acute, le ft 01/02/2018 11/25/2019 Overview: --acute DVT gastrocnemius found 12/13/2017 --continue apixaban till platelets <50K, last dose 06/21/2018 Adjustment insomnia 12/07/2017 05/14/2018 Class 1 obesity due to exces s calories with serious comorbidity and body mass index (BMI) of 34.0 to 34.9 in adult 06/26/2017 11/25/2019 Vitamin D deficiency 12/31/2014 06/27/2017 Acute bronchitis with chroni c obstructive pulmonary disease (COPD) 12/30/2014 06/26/2017 Venous insufficiency, peripheral 01/06/2014 11/25/2019 Esophagitis, unspecified 09/25/2012 014 Special screening for malignant neoplasms, colon 09/06/2012 06/13/2018 Tobacco abuse 12/27/2011 10/01/2012 documented as of this encounter (statuses as of 01/27/2022) [facility] illness Narrative* Problem Noted Date Resolved Date Chest pressure 10/23/2019 11/25/2019 Wheezing 10/23/2019 11/25/2019 Shortness of breath 10/22/2019 11/25/2019 Overview: Admitted with shortness of breath and fluid retention due to comp,ex history, admitted for management and work-up to determine cardiac causes versus primary pulmonary. He was diuresed with IV lasix, and lost 13 pounds in 3 days. Feels much better able to walk in the hallway few laps. Pulmonary team consulted work-up in progress Cardiac testing including echo, PET negative. Nuclear test to rule out amyloid - neg for cardiac Amyloid. Discussion with pulmonary team: No need for RHC this admission. Recommend repeat echo in 3 to 4 weeks (when euvolemic) and if RVSP is >50 mmhg, will need a right heart cath (pulmonary arterial HTN) Per HF team: Would start spironolactone 12.5, on discharge arrange f/u with Dr. Rosenbaum's office for electrolyte monitoring Can stop carvedilol given no indication (ischemia ruled out, and HFrEF ruled out) - Would not continue imdur on discharge given no indication - Lisinopril can be restarted as an outpatient as needed for HTN if renal function is stable Dr. Mcpherson recommends to resume home dose of 40mg daily. Annie I Corrales, RN ORTHOTIC TECHNICIAN.[employer] Acute on chronic systolic CHF (congestive heart failure) 10/04/2019 11/25/2019 Fall 07/17/2018 11/25/2019 Difficulty coping 06/20/2018 06/26/2018 Overview: --social work following for supportive counseling --Zyprexa added for recent depressed mood --mood has improved, gabapentin was DC'd as well daughter recalled patient taking this in the past and having severe depression and suicidal ideation (added to allergies) Hyperkalemia 06/18/2018 2018 Overview: K 5.2, will d/c lisinopril Chemotherapy induced nausea and vomiting 018 07/02/2018 Overview: --compazine, Ativan and zofran prn. JOSE ENRIQUE (acute kidney injury) 06/16/20182017 Overview: Acute increase of sCr to 1.5 on 06/16, but now down to 1.03 ( at baseline). will monitor at this time, if sCr rises, then will stop lisinopril Bilateral lower extremity edema 06/13/2018 07/17/2018 Overview: --uses 40 lasix po at home as needed --diurese as needed. 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 Leg DVT (deep venous thromboembolism), acute, le ft 01/02/2018 11/25/2019 Overview: --acute DVT gastrocnemius found 12/13/2017 --continue apixaban till platelets <50K, last dose 06/21/2018 Adjustment insomnia 12/07/2017 05/14/2018 Class 1 obesity due to exces s calories with serious comorbidity and body mass index (BMI) of 34.0 to 34.9 in adult 06/26/2017 11/25/2019 Vitamin D deficiency 12/31/2014 06/27/2017 Acute bronchitis with chroni c obstructive pulmonary disease (COPD) 12/30/2014 06/26/2017 Venous insufficiency, peripheral 01/06/2014 11/25/2019 Esophagitis, unspecified 09/25/2012 014 Special screening for malignant neoplasms, colon 09/06/2012 06/13/2018 Tobacco abuse 12/27/2011 10/01/2012 documented as of this encounter (statuses as of 02/04/2022) [facility] illness Narrative* Problem Noted Date Resolved Date Chest pressure 10/23/2019 11/25/2019 Wheezing 10/23/2019 11/25/2019 Shortness of breath 10/22/2019 11/25/2019 Overview: Admitted with shortness of breath and fluid retention due to comp,ex history, admitted for management and work-up to determine cardiac causes versus primary pulmonary. He was diuresed with IV lasix, and lost 13 pounds in 3 days. Feels much better able to walk in the hallway few laps. Pulmonary team consulted work-up in progress Cardiac testing including echo, PET negative. Nuclear test to rule out amyloid - neg for cardiac Amyloid. Discussion with pulmonary team: No need for RHC this admission. Recommend repeat echo in 3 to 4 weeks (when euvolemic) and if RVSP is >50 mmhg, will need a right heart cath (pulmonary arterial HTN) Per HF team: Would start spironolactone 12.5, on discharge arrange f/u with Dr. Rosenbaum's office for electrolyte monitoring Can stop carvedilol given no indication (ischemia ruled out, and HFrEF ruled out) - Would not continue imdur on discharge given no indication - Lisinopril can be restarted as an outpatient as needed for HTN if renal function is stable Dr. Mcpherson recommends to resume home dose of 40mg daily. Annie Corrales RN ORTHOTIC TECHNICIAN.[employer] Acute on chronic systolic CHF (congestive heart failure) 10/04/2019 11/25/2019 Fall 07/17/2018 11/25/2019 Difficulty coping 06/20/2018 06/26/2018 Overview: --social work following for supportive counseling --Zyprexa added for recent depressed mood --mood has improved, gabapentin was DC'd as well daughter recalled patient taking this in the past and having severe depression and suicidal ideation (added to allergies) Hyperkalemia 06/18/2018 2018 Overview: K 5.2, will d/c lisinopril Chemotherapy induced nausea and vomiting 018 07/02/2018 Overview: --compazine, Ativan and zofran prn. JOSE ENRIQUE (acute kidney injury) 06/16/20182017 Overview: Acute increase of sCr to 1.5 on 06/16, but now down to 1.03 ( at baseline). will monitor at this time, if sCr rises, then will stop lisinopril Bilateral lower extremity edema 06/13/2018 07/17/2018 Overview: --uses 40 lasix po at home as needed --diurese as needed. 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 Leg DVT (deep venous thromboembolism), acute, le ft 01/02/2018 11/25/2019 Overview: --acute DVT gastrocnemius found 12/13/2017 --continue apixaban till platelets <50K, last dose 06/21/2018 Adjustment insomnia 12/07/2017 05/14/2018 Class 1 obesity due to exces s calories with serious comorbidity and body mass index (BMI) of 34.0 to 34.9 in adult 06/26/2017 11/25/2019 Vitamin D deficiency 12/31/2014 06/27/2017 Acute bronchitis with chroni c obstructive pulmonary disease (COPD) 12/30/2014 06/26/2017 Venous insufficiency, peripheral 01/06/2014 11/25/2019 Esophagitis, unspecified 09/25/2012 014 Special screening for malignant neoplasms, colon 09/06/2012 06/13/2018 Tobacco abuse 12/27/2011 10/01/2012 documented as of this encounter (statuses as of 02/10/2022) [facility]-2020 History of Past illness Narrative* Problem Noted Date Resolved Date Chest pressure 10/23/2019 11/25/2019 Wheezing 10/23/2019 11/25/2019 Shortness of breath 10/22/2019 11/25/2019 Overview: Admitted with shortness of breath and fluid retention due to comp,ex history, admitted for management and work-up to determine cardiac causes versus primary pulmonary. He was diuresed with IV lasix, and lost 13 pounds in 3 days. Feels much better able to walk in the hallway few laps. Pulmonary team consulted work-up in progress Cardiac testing including echo, PET negative. Nuclear test to rule out amyloid - neg for cardiac Amyloid. Discussion with pulmonary team: No need for RHC this admission. Recommend repeat echo in 3 to 4 weeks (when euvolemic) and if RVSP is >50 mmhg, will need a right heart cath (pulmonary arterial HTN) Per HF team: Would start spironolactone 12.5, on discharge arrange f/u with Dr. Rosenbaum's office for electrolyte monitoring Can stop carvedilol given no indication (ischemia ruled out, and HFrEF ruled out) - Would not continue imdur on discharge given no indication - Lisinopril can be restarted as an outpatient as needed for HTN if renal function is stable Dr. Mcpherson recommends to resume home dose of 40mg daily. Annie Corrales RN ORTHOTIC TECHNICIAN.[employer] Acute on chronic systolic CHF (congestive heart failure) 10/04/2019 11/25/2019 Fall 07/17/2018 11/25/2019 Difficulty coping 06/20/2018 06/26/2018 Overview: --social work following for supportive counseling --Zyprexa added for recent depressed mood --mood has improved, gabapentin was DC'd as well daughter recalled patient taking this in the past and having severe depression and suicidal ideation (added to allergies) Hyperkalemia 06/18/2018 2018 Overview: K 5.2, will d/c lisinopril Chemotherapy induced nausea and vomiting 018 07/02/2018 Overview: --compazine, Ativan and zofran prn. JOSE ENRIQUE (acute kidney injury) 06/16/20182017 Overview: Acute increase of sCr to 1.5 on 06/16, but now down to 1.03 ( at baseline). will monitor at this time, if sCr rises, then will stop lisinopril Bilateral lower extremity edema 06/13/2018 07/17/2018 Overview: --uses 40 lasix po at home as needed --diurese as needed. 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 Leg DVT (deep venous thromboembolism), acute, le ft 01/02/2018 11/25/2019 Overview: --acute DVT gastrocnemius found 12/13/2017 --continue apixaban till platelets <50K, last dose 06/21/2018 Adjustment insomnia 12/07/2017 05/14/2018 Class 1 obesity due to exces s calories with serious comorbidity and body mass index (BMI) of 34.0 to 34.9 in adult 06/26/2017 11/25/2019 Vitamin D deficiency 12/31/2014 06/27/2017 Acute bronchitis with chroni c obstructive pulmonary disease (COPD) 12/30/2014 06/26/2017 Venous insufficiency, peripheral 01/06/2014 11/25/2019 Esophagitis, unspecified 09/25/2012 014 Special screening for malignant neoplasms, colon 09/06/2012 06/13/2018 Tobacco abuse 12/27/2011 10/01/2012 documented as of this encounter (statuses as of 03/16/2022) [facility]2020 History of Past illness Narrative* Problem Noted Date Resolved Date Chest pressure 10/23/2019 11/25/2019 Wheezing 10/23/2019 11/25/2019 Shortness of breath 10/22/2019 11/25/2019 Overview: Admitted with shortness of breath and fluid retention due to comp,ex history, admitted for management and work-up to determine cardiac causes versus primary pulmonary. He was diuresed with IV lasix, and lost 13 pounds in 3 days. Feels much better able to walk in the hallway few laps. Pulmonary team consulted work-up in progress Cardiac testing including echo, PET negative. Nuclear test to rule out amyloid - neg for cardiac Amyloid. Discussion with pulmonary team: No need for RHC this admission. Recommend repeat echo in 3 to 4 weeks (when euvolemic) and if RVSP is >50 mmhg, will need a right heart cath (pulmonary arterial HTN) Per HF team: Would start spironolactone 12.5, on discharge arrange f/u with Dr. Rosenbaum's office for electrolyte monitoring Can stop carvedilol given no indication (ischemia ruled out, and HFrEF ruled out) - Would not continue imdur on discharge given no indication - Lisinopril can be restarted as an outpatient as needed for HTN if renal function is stable Dr. Mcpherson recommends to resume home dose of 40mg daily. Annie Corrales, RN ORTHOTIC TECHNICIAN.[employer] Acute on chronic systolic CHF (congestive heart failure) 10/04/2019 11/25/2019 Fall 07/17/2018 11/25/2019 Difficulty coping 06/20/2018 06/26/2018 Overview: --social work following for supportive counseling --Zyprexa added for recent depressed mood --mood has improved, gabapentin was DC'd as well daughter recalled patient taking this in the past and having severe depression and suicidal ideation (added to allergies) Hyperkalemia 06/18/2018 2018 Overview: K 5.2, will d/c lisinopril Chemotherapy induced nausea and vomiting 018 07/02/2018 Overview: --compazine, Ativan and zofran prn. JOSE ENRIQUE (acute kidney injury) 06/16/20182017 Overview: Acute increase of sCr to 1.5 on 06/16, but now down to 1.03 ( at baseline). will monitor at this time, if sCr rises, then will stop lisinopril Bilateral lower extremity edema 06/13/2018 07/17/2018 Overview: --uses 40 lasix po at home as needed --diurese as needed. 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 Leg DVT (deep venous thromboembolism), acute, le ft 01/02/2018 11/25/2019 Overview: --acute DVT gastrocnemius found 12/13/2017 --continue apixaban till platelets <50K, last dose 06/21/2018 Adjustment insomnia 12/07/2017 05/14/2018 Class 1 obesity due to exces s calories with serious comorbidity and body mass index (BMI) of 34.0 to 34.9 in adult 06/26/2017 11/25/2019 Vitamin D deficiency 12/31/2014 06/27/2017 Acute bronchitis with chroni c obstructive pulmonary disease (COPD) 12/30/2014 06/26/2017 Venous insufficiency, peripheral 01/06/2014 11/25/2019 Esophagitis, unspecified 09/25/2012 014 Special screening for malignant neoplasms, colon 09/06/2012 06/13/2018 Tobacco abuse 12/27/2011 10/01/2012 documented as of this encounter (statuses as of 03/17/2022) [facility]2020 History of Past illness Narrative* Problem Noted Date Resolved Date Chest pressure 10/23/2019 11/25/2019 Wheezing 10/23/2019 11/25/2019 Shortness of breath 10/22/2019 11/25/2019 Overview: Admitted with shortness of breath and fluid retention due to comp,ex history, admitted for management and work-up to determine cardiac causes versus primary pulmonary. He was diuresed with IV lasix, and lost 13 pounds in 3 days. Feels much better able to walk in the hallway few laps. Pulmonary team consulted work-up in progress Cardiac testing including echo, PET negative. Nuclear test to rule out amyloid - neg for cardiac Amyloid. Discussion with pulmonary team: No need for RHC this admission. Recommend repeat echo in 3 to 4 weeks (when euvolemic) and if RVSP is >50 mmhg, will need a right heart cath (pulmonary arterial HTN) Per HF team: Would start spironolactone 12.5, on discharge arrange f/u with Dr. Rosenbaum's office for electrolyte monitoring Can stop carvedilol given no indication (ischemia ruled out, and HFrEF ruled out) - Would not continue imdur on discharge given no indication - Lisinopril can be restarted as an outpatient as needed for HTN if renal function is stable Dr. Mcpherson recommends to resume home dose of 40mg daily. Annie Corrales, RN ORTHOTIC TECHNICIAN.[employer] Acute on chronic systolic CHF (congestive heart failure) 10/04/2019 11/25/2019 Fall 07/17/2018 11/25/2019 Difficulty coping 06/20/2018 06/26/2018 Overview: --social work following for supportive counseling --Zyprexa added for recent depressed mood --mood has improved, gabapentin was DC'd as well daughter recalled patient taking this in the past and having severe depression and suicidal ideation (added to allergies) Hyperkalemia 06/18/2018 2018 Overview: K 5.2, will d/c lisinopril Chemotherapy induced nausea and vomiting 018 07/02/2018 Overview: --compazine, Ativan and zofran prn. JOSE ENRIQUE (acute kidney injury) 06/16/20182017 Overview: Acute increase of sCr to 1.5 on 06/16, but now down to 1.03 ( at baseline). will monitor at this time, if sCr rises, then will stop lisinopril Bilateral lower extremity edema 06/13/2018 07/17/2018 Overview: --uses 40 lasix po at home as needed --diurese as needed. 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 Leg DVT (deep venous thromboembolism), acute, le ft 01/02/2018 11/25/2019 Overview: --acute DVT gastrocnemius found 12/13/2017 --continue apixaban till platelets <50K, last dose 06/21/2018 Adjustment insomnia 12/07/2017 05/14/2018 Class 1 obesity due to exces s calories with serious comorbidity and body mass index (BMI) of 34.0 to 34.9 in adult 06/26/2017 11/25/2019 Vitamin D deficiency 12/31/2014 06/27/2017 Acute bronchitis with chroni c obstructive pulmonary disease (COPD) 12/30/2014 06/26/2017 Venous insufficiency, peripheral 01/06/2014 11/25/2019 Esophagitis, unspecified 09/25/2012 014 Special screening for malignant neoplasms, colon 09/06/2012 06/13/2018 Tobacco abuse 12/27/2011 10/01/2012 documented as of this encounter (statuses as of 03/17/2022) [facility] History of Past illness Narrative* Problem Noted Date Resolved Date Chest pressure 10/23/2019 11/25/2019 Wheezing 10/23/2019 11/25/2019 Shortness of breath 10/22/2019 11/25/2019 Overview: Admitted with shortness of breath and fluid retention due to comp,ex history, admitted for management and work-up to determine cardiac causes versus primary pulmonary. He was diuresed with IV lasix, and lost 13 pounds in 3 days. Feels much better able to walk in the hallway few laps. Pulmonary team consulted work-up in progress Cardiac testing including echo, PET negative. Nuclear test to rule out amyloid - neg for cardiac Amyloid. Discussion with pulmonary team: No need for RHC this admission. Recommend repeat echo in 3 to 4 weeks (when euvolemic) and if RVSP is >50 mmhg, will need a right heart cath (pulmonary arterial HTN) Per HF team: Would start spironolactone 12.5, on discharge arrange f/u with Dr. Rosenbaum's office for electrolyte monitoring Can stop carvedilol given no indication (ischemia ruled out, and HFrEF ruled out) - Would not continue imdur on discharge given no indication - Lisinopril can be restarted as an outpatient as needed for HTN if renal function is stable Dr. Mcpherson recommends to resume home dose of 40mg daily. Annie Corrales RN ORTHOTIC TECHNICIAN.[employer] Acute on chronic systolic CHF (congestive heart failure) 10/04/2019 11/25/2019 Fall 07/17/2018 11/25/2019 Difficulty coping 06/20/2018 06/26/2018 Overview: --social work following for supportive counseling --Zyprexa added for recent depressed mood --mood has improved, gabapentin was DC'd as well daughter recalled patient taking this in the past and having severe depression and suicidal ideation (added to allergies) Hyperkalemia 06/18/2018 2018 Overview: K 5.2, will d/c lisinopril Chemotherapy induced nausea and vomiting 018 07/02/2018 Overview: --compazine, Ativan and zofran prn. JOSE ENRIQUE (acute kidney injury) 06/16/20182017 Overview: Acute increase of sCr to 1.5 on 06/16, but now down to 1.03 ( at baseline). will monitor at this time, if sCr rises, then will stop lisinopril Bilateral lower extremity edema 06/13/2018 07/17/2018 Overview: --uses 40 lasix po at home as needed --diurese as needed. 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 Leg DVT (deep venous thromboembolism), acute, le ft 01/02/2018 11/25/2019 Overview: --acute DVT gastrocnemius found 12/13/2017 --continue apixaban till platelets <50K, last dose 06/21/2018 Adjustment insomnia 12/07/2017 05/14/2018 Class 1 obesity due to exces s calories with serious comorbidity and body mass index (BMI) of 34.0 to 34.9 in adult 06/26/2017 11/25/2019 Vitamin D deficiency 12/31/2014 06/27/2017 Acute bronchitis with chroni c obstructive pulmonary disease (COPD) 12/30/2014 06/26/2017 Venous insufficiency, peripheral 01/06/2014 11/25/2019 Esophagitis, unspecified 09/25/2012 014 Special screening for malignant neoplasms, colon 09/06/2012 06/13/2018 Tobacco abuse 12/27/2011 10/01/2012 documented as of this encounter (statuses as of 03/22/2022) [facility]2020 History of Past illness Narrative* Problem Noted Date Resolved Date Chest pressure 10/23/2019 11/25/2019 Wheezing 10/23/2019 11/25/2019 Shortness of breath 10/22/2019 11/25/2019 Overview: Admitted with shortness of breath and fluid retention due to comp,ex history, admitted for management and work-up to determine cardiac causes versus primary pulmonary. He was diuresed with IV lasix, and lost 13 pounds in 3 days. Feels much better able to walk in the hallway few laps. Pulmonary team consulted work-up in progress Cardiac testing including echo, PET negative. Nuclear test to rule out amyloid - neg for cardiac Amyloid. Discussion with pulmonary team: No need for RHC this admission. Recommend repeat echo in 3 to 4 weeks (when euvolemic) and if RVSP is >50 mmhg, will need a right heart cath (pulmonary arterial HTN) Per HF team: Would start spironolactone 12.5, on discharge arrange f/u with Dr. Rosenbaum's office for electrolyte monitoring Can stop carvedilol given no indication (ischemia ruled out, and HFrEF ruled out) - Would not continue imdur on discharge given no indication - Lisinopril can be restarted as an outpatient as needed for HTN if renal function is stable Dr. Mcpherson recommends to resume home dose of 40mg daily. Annie Corrales, RN ORTHOTIC TECHNICIAN.[employer] Acute on chronic systolic CHF (congestive heart failure) 10/04/2019 11/25/2019 Fall 07/17/2018 11/25/2019 Difficulty coping 06/20/2018 06/26/2018 Overview: --social work following for supportive counseling --Zyprexa added for recent depressed mood --mood has improved, gabapentin was DC'd as well daughter recalled patient taking this in the past and having severe depression and suicidal ideation (added to allergies) Hyperkalemia 06/18/2018 2018 Overview: K 5.2, will d/c lisinopril Chemotherapy induced nausea and vomiting 018 07/02/2018 Overview: --compazine, Ativan and zofran prn. JOSE ENRIQUE (acute kidney injury) 06/16/20182017 Overview: Acute increase of sCr to 1.5 on 06/16, but now down to 1.03 ( at baseline). will monitor at this time, if sCr rises, then will stop lisinopril Bilateral lower extremity edema 06/13/2018 07/17/2018 Overview: --uses 40 lasix po at home as needed --diurese as needed. 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 Leg DVT (deep venous thromboembolism), acute, le ft 01/02/2018 11/25/2019 Overview: --acute DVT gastrocnemius found 12/13/2017 --continue apixaban till platelets <50K, last dose 06/21/2018 Adjustment insomnia 12/07/2017 05/14/2018 Class 1 obesity due to exces s calories with serious comorbidity and body mass index (BMI) of 34.0 to 34.9 in adult 06/26/2017 11/25/2019 Vitamin D deficiency 12/31/2014 06/27/2017 Acute bronchitis with chroni c obstructive pulmonary disease (COPD) 12/30/2014 06/26/2017 Venous insufficiency, peripheral 01/06/2014 11/25/2019 Esophagitis, unspecified 09/25/2012 014 Special screening for malignant neoplasms, colon 09/06/2012 06/13/2018 Tobacco abuse 12/27/2011 10/01/2012 documented as of this encounter (statuses as of 03/28/2022) [facility]2020 History of Past illness Narrative* Problem Noted Date Resolved Date Chest pressure 10/23/2019 11/25/2019 Wheezing 10/23/2019 11/25/2019 Shortness of breath 10/22/2019 11/25/2019 Overview: Admitted with shortness of breath and fluid retention due to comp,ex history, admitted for management and work-up to determine cardiac causes versus primary pulmonary. He was diuresed with IV lasix, and lost 13 pounds in 3 days. Feels much better able to walk in the hallway few laps. Pulmonary team consulted work-up in progress Cardiac testing including echo, PET negative. Nuclear test to rule out amyloid - neg for cardiac Amyloid. Discussion with pulmonary team: No need for RHC this admission. Recommend repeat echo in 3 to 4 weeks (when euvolemic) and if RVSP is >50 mmhg, will need a right heart cath (pulmonary arterial HTN) Per HF team: Would start spironolactone 12.5, on discharge arrange f/u with Dr. Rosenbaum's office for electrolyte monitoring Can stop carvedilol given no indication (ischemia ruled out, and HFrEF ruled out) - Would not continue imdur on discharge given no indication - Lisinopril can be restarted as an outpatient as needed for HTN if renal function is stable Dr. Mcpherson recommends to resume home dose of 40mg daily. Annie Corrales RN ORTHOTIC TECHNICIAN.[employer] Acute on chronic systolic CHF (congestive heart failure) 10/04/2019 11/25/2019 Fall 07/17/2018 11/25/2019 Difficulty coping 06/20/2018 06/26/2018 Overview: --social work following for supportive counseling --Zyprexa added for recent depressed mood --mood has improved, gabapentin was DC'd as well daughter recalled patient taking this in the past and having severe depression and suicidal ideation (added to allergies) Hyperkalemia 06/18/2018 2018 Overview: K 5.2, will d/c lisinopril Chemotherapy induced nausea and vomiting 018 07/02/2018 Overview: --compazine, Ativan and zofran prn. JOSE ENRIQUE (acute kidney injury) 06/16/20182017 Overview: Acute increase of sCr to 1.5 on 06/16, but now down to 1.03 ( at baseline). will monitor at this time, if sCr rises, then will stop lisinopril Bilateral lower extremity edema 06/13/2018 07/17/2018 Overview: --uses 40 lasix po at home as needed --diurese as needed. 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 Leg DVT (deep venous thromboembolism), acute, le ft 01/02/2018 11/25/2019 Overview: --acute DVT gastrocnemius found 12/13/2017 --continue apixaban till platelets <50K, last dose 06/21/2018 Adjustment insomnia 12/07/2017 05/14/2018 Class 1 obesity due to exces s calories with serious comorbidity and body mass index (BMI) of 34.0 to 34.9 in adult 06/26/2017 11/25/2019 Vitamin D deficiency 12/31/2014 06/27/2017 Acute bronchitis with chroni c obstructive pulmonary disease (COPD) 12/30/2014 06/26/2017 Venous insufficiency, peripheral 01/06/2014 11/25/2019 Esophagitis, unspecified 09/25/2012 014 Special screening for malignant neoplasms, colon 09/06/2012 06/13/2018 Tobacco abuse 12/27/2011 10/01/2012 documented as of this encounter (statuses as of 04/01/2022) [facility] History of Past illness Narrative* Problem Noted Date Resolved Date Chest pressure 10/23/2019 11/25/2019 Wheezing 10/23/2019 11/25/2019 Shortness of breath 10/22/2019 11/25/2019 Overview: Admitted with shortness of breath and fluid retention due to comp,ex history, admitted for management and work-up to determine cardiac causes versus primary pulmonary. He was diuresed with IV lasix, and lost 13 pounds in 3 days. Feels much better able to walk in the hallway few laps. Pulmonary team consulted work-up in progress Cardiac testing including echo, PET negative. Nuclear test to rule out amyloid - neg for cardiac Amyloid. Discussion with pulmonary team: No need for RHC this admission. Recommend repeat echo in 3 to 4 weeks (when euvolemic) and if RVSP is >50 mmhg, will need a right heart cath (pulmonary arterial HTN) Per HF team: Would start spironolactone 12.5, on discharge arrange f/u with Dr. Rosenbaum's office for electrolyte monitoring Can stop carvedilol given no indication (ischemia ruled out, and HFrEF ruled out) - Would not continue imdur on discharge given no indication - Lisinopril can be restarted as an outpatient as needed for HTN if renal function is stable Dr. Mcpherson recommends to resume home dose of 40mg daily. Annie Corrales, RN ORTHOTIC TECHNICIAN.[employer] Acute on chronic systolic CHF (congestive heart failure) 10/04/2019 11/25/2019 Fall 07/17/2018 11/25/2019 Difficulty coping 06/20/2018 06/26/2018 Overview: --social work following for supportive counseling --Zyprexa added for recent depressed mood --mood has improved, gabapentin was DC'd as well daughter recalled patient taking this in the past and having severe depression and suicidal ideation (added to allergies) Hyperkalemia 06/18/2018 2018 Overview: K 5.2, will d/c lisinopril Chemotherapy induced nausea and vomiting 018 07/02/2018 Overview: --compazine, Ativan and zofran prn. JOSE ENRIQUE (acute kidney injury) 06/16/20182017 Overview: Acute increase of sCr to 1.5 on 06/16, but now down to 1.03 ( at baseline). will monitor at this time, if sCr rises, then will stop lisinopril Bilateral lower extremity edema 06/13/2018 07/17/2018 Overview: --uses 40 lasix po at home as needed --diurese as needed. 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 Leg DVT (deep venous thromboembolism), acute, le ft 01/02/2018 11/25/2019 Overview: --acute DVT gastrocnemius found 12/13/2017 --continue apixaban till platelets <50K, last dose 06/21/2018 Adjustment insomnia 12/07/2017 05/14/2018 Class 1 obesity due to exces s calories with serious comorbidity and body mass index (BMI) of 34.0 to 34.9 in adult 06/26/2017 11/25/2019 Vitamin D deficiency 12/31/2014 06/27/2017 Acute bronchitis with chroni c obstructive pulmonary disease (COPD) 12/30/2014 06/26/2017 Venous insufficiency, peripheral 01/06/2014 11/25/2019 Esophagitis, unspecified 09/25/2012 014 Special screening for malignant neoplasms, colon 09/06/2012 06/13/2018 Tobacco abuse 12/27/2011 10/01/2012 documented as of this encounter (statuses as of 04/05/2022) [facility] History of Past illness Narrative* Problem Noted Date Resolved Date Chest pressure 10/23/2019 11/25/2019 Wheezing 10/23/2019 11/25/2019 Shortness of breath 10/22/2019 11/25/2019 Overview: Admitted with shortness of breath and fluid retention due to comp,ex history, admitted for management and work-up to determine cardiac causes versus primary pulmonary. He was diuresed with IV lasix, and lost 13 pounds in 3 days. Feels much better able to walk in the hallway few laps. Pulmonary team consulted work-up in progress Cardiac testing including echo, PET negative. Nuclear test to rule out amyloid - neg for cardiac Amyloid. Discussion with pulmonary team: No need for RHC this admission. Recommend repeat echo in 3 to 4 weeks (when euvolemic) and if RVSP is >50 mmhg, will need a right heart cath (pulmonary arterial HTN) Per HF team: Would start spironolactone 12.5, on discharge arrange f/u with Dr. Rosenbaum's office for electrolyte monitoring Can stop carvedilol given no indication (ischemia ruled out, and HFrEF ruled out) - Would not continue imdur on discharge given no indication - Lisinopril can be restarted as an outpatient as needed for HTN if renal function is stable Dr. Mcpherson recommends to resume home dose of 40mg daily. Annie Corrales RN ORTHOTIC TECHNICIAN.[employer] Acute on chronic systolic CHF (congestive heart failure) 10/04/2019 11/25/2019 Fall 07/17/2018 11/25/2019 Difficulty coping 06/20/2018 06/26/2018 Overview: --social work following for supportive counseling --Zyprexa added for recent depressed mood --mood has improved, gabapentin was DC'd as well daughter recalled patient taking this in the past and having severe depression and suicidal ideation (added to allergies) Hyperkalemia 06/18/2018 2018 Overview: K 5.2, will d/c lisinopril Chemotherapy induced nausea and vomiting 018 07/02/2018 Overview: --compazine, Ativan and zofran prn. JOSE ENRIQUE (acute kidney injury) 06/16/20182017 Overview: Acute increase of sCr to 1.5 on 06/16, but now down to 1.03 ( at baseline). will monitor at this time, if sCr rises, then will stop lisinopril Bilateral lower extremity edema 06/13/2018 07/17/2018 Overview: --uses 40 lasix po at home as needed --diurese as needed. 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 Leg DVT (deep venous thromboembolism), acute, le ft 01/02/2018 11/25/2019 Overview: --acute DVT gastrocnemius found 12/13/2017 --continue apixaban till platelets <50K, last dose 06/21/2018 Adjustment insomnia 12/07/2017 05/14/2018 Class 1 obesity due to exces s calories with serious comorbidity and body mass index (BMI) of 34.0 to 34.9 in adult 06/26/2017 11/25/2019 Vitamin D deficiency 12/31/2014 06/27/2017 Acute bronchitis with chroni c obstructive pulmonary disease (COPD) 12/30/2014 06/26/2017 Venous insufficiency, peripheral 01/06/2014 11/25/2019 Esophagitis, unspecified 09/25/2012 014 Special screening for malignant neoplasms, colon 09/06/2012 06/13/2018 Tobacco abuse 12/27/2011 10/01/2012 documented as of this encounter (statuses as of 04/07/2022) [facility]02-05-2020 History of Past illness Narrative* Problem Noted Date Resolved Date Chest pressure 10/23/2019 11/25/2019 Wheezing 10/23/2019 11/25/2019 Shortness of breath 10/22/2019 11/25/2019 Overview: Admitted with shortness of breath and fluid retention due to comp,ex history, admitted for management and work-up to determine cardiac causes versus primary pulmonary. He was diuresed with IV lasix, and lost 13 pounds in 3 days. Feels much better able to walk in the hallway few laps. Pulmonary team consulted work-up in progress Cardiac testing including echo, PET negative. Nuclear test to rule out amyloid - neg for cardiac Amyloid. Discussion with pulmonary team: No need for RHC this admission. Recommend repeat echo in 3 to 4 weeks (when euvolemic) and if RVSP is >50 mmhg, will need a right heart cath (pulmonary arterial HTN) Per HF team: Would start spironolactone 12.5, on discharge arrange f/u with Dr. Rosenbaum's office for electrolyte monitoring Can stop carvedilol given no indication (ischemia ruled out, and HFrEF ruled out) - Would not continue imdur on discharge given no indication - Lisinopril can be restarted as an outpatient as needed for HTN if renal function is stable Dr. Mcpherson recommends to resume home dose of 40mg daily. Annie Corrales RN ORTHOTIC TECHNICIAN.[employer] Acute on chronic systolic CHF (congestive heart failure) 10/04/2019 11/25/2019 Fall 07/17/2018 11/25/2019 Difficulty coping 06/20/2018 06/26/2018 Overview: --social work following for supportive counseling --Zyprexa added for recent depressed mood --mood has improved, gabapentin was DC'd as well daughter recalled patient taking this in the past and having severe depression and suicidal ideation (added to allergies) Hyperkalemia 06/18/2018 2018 Overview: K 5.2, will d/c lisinopril Chemotherapy induced nausea and vomiting 018 07/02/2018 Overview: --compazine, Ativan and zofran prn. JOSE ENRIQUE (acute kidney injury) 06/16/20182017 Overview: Acute increase of sCr to 1.5 on 06/16, but now down to 1.03 ( at baseline). will monitor at this time, if sCr rises, then will stop lisinopril Bilateral lower extremity edema 06/13/2018 07/17/2018 Overview: --uses 40 lasix po at home as needed --diurese as needed. 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 Leg DVT (deep venous thromboembolism), acute, le ft 01/02/2018 11/25/2019 Overview: --acute DVT gastrocnemius found 12/13/2017 --continue apixaban till platelets <50K, last dose 06/21/2018 Adjustment insomnia 12/07/2017 05/14/2018 Class 1 obesity due to exces s calories with serious comorbidity and body mass index (BMI) of 34.0 to 34.9 in adult 06/26/2017 11/25/2019 Vitamin D deficiency 12/31/2014 06/27/2017 Acute bronchitis with chroni c obstructive pulmonary disease (COPD) 12/30/2014 06/26/2017 Venous insufficiency, peripheral 01/06/2014 11/25/2019 Esophagitis, unspecified 09/25/2012 014 Special screening for malignant neoplasms, colon 09/06/2012 06/13/2018 Tobacco abuse 12/27/2011 10/01/2012 documented as of this encounter (statuses as of 04/11/2022) [facility]-2020 History of Past illness Narrative* Problem Noted Date Resolved Date Chest pressure 10/23/2019 11/25/2019 Wheezing 10/23/2019 11/25/2019 Shortness of breath 10/22/2019 11/25/2019 Overview: Admitted with shortness of breath and fluid retention due to comp,ex history, admitted for management and work-up to determine cardiac causes versus primary pulmonary. He was diuresed with IV lasix, and lost 13 pounds in 3 days. Feels much better able to walk in the hallway few laps. Pulmonary team consulted work-up in progress Cardiac testing including echo, PET negative. Nuclear test to rule out amyloid - neg for cardiac Amyloid. Discussion with pulmonary team: No need for RHC this admission. Recommend repeat echo in 3 to 4 weeks (when euvolemic) and if RVSP is >50 mmhg, will need a right heart cath (pulmonary arterial HTN) Per HF team: Would start spironolactone 12.5, on discharge arrange f/u with Dr. Rosenbaum's office for electrolyte monitoring Can stop carvedilol given no indication (ischemia ruled out, and HFrEF ruled out) - Would not continue imdur on discharge given no indication - Lisinopril can be restarted as an outpatient as needed for HTN if renal function is stable Dr. Mcpherson recommends to resume home dose of 40mg daily. Annie Corrales RN ORTHOTIC TECHNICIAN.[employer] Acute on chronic systolic CHF (congestive heart failure) 10/04/2019 11/25/2019 Fall 07/17/2018 11/25/2019 Difficulty coping 06/20/2018 06/26/2018 Overview: --social work following for supportive counseling --Zyprexa added for recent depressed mood --mood has improved, gabapentin was DC'd as well daughter recalled patient taking this in the past and having severe depression and suicidal ideation (added to allergies) Hyperkalemia 06/18/2018 2018 Overview: K 5.2, will d/c lisinopril Chemotherapy induced nausea and vomiting 018 07/02/2018 Overview: --compazine, Ativan and zofran prn. JOSE ENRIQUE (acute kidney injury) 06/16/20182017 Overview: Acute increase of sCr to 1.5 on 06/16, but now down to 1.03 ( at baseline). will monitor at this time, if sCr rises, then will stop lisinopril Bilateral lower extremity edema 06/13/2018 07/17/2018 Overview: --uses 40 lasix po at home as needed --diurese as needed. 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 Leg DVT (deep venous thromboembolism), acute, le ft 01/02/2018 11/25/2019 Overview: --acute DVT gastrocnemius found 12/13/2017 --continue apixaban till platelets <50K, last dose 06/21/2018 Adjustment insomnia 12/07/2017 05/14/2018 Class 1 obesity due to exces s calories with serious comorbidity and body mass index (BMI) of 34.0 to 34.9 in adult 06/26/2017 11/25/2019 Vitamin D deficiency 12/31/2014 06/27/2017 Acute bronchitis with chroni c obstructive pulmonary disease (COPD) 12/30/2014 06/26/2017 Venous insufficiency, peripheral 01/06/2014 11/25/2019 Esophagitis, unspecified 09/25/2012 014 Special screening for malignant neoplasms, colon 09/06/2012 06/13/2018 Tobacco abuse 12/27/2011 10/01/2012 documented as of this encounter (statuses as of 04/18/2022) [facility]2020 History of Past illness Narrative* Problem Noted Date Resolved Date Chest pressure 10/23/2019 11/25/2019 Wheezing 10/23/2019 11/25/2019 Shortness of breath 10/22/2019 11/25/2019 Overview: Admitted with shortness of breath and fluid retention due to comp,ex history, admitted for management and work-up to determine cardiac causes versus primary pulmonary. He was diuresed with IV lasix, and lost 13 pounds in 3 days. Feels much better able to walk in the hallway few laps. Pulmonary team consulted work-up in progress Cardiac testing including echo, PET negative. Nuclear test to rule out amyloid - neg for cardiac Amyloid. Discussion with pulmonary team: No need for RHC this admission. Recommend repeat echo in 3 to 4 weeks (when euvolemic) and if RVSP is >50 mmhg, will need a right heart cath (pulmonary arterial HTN) Per HF team: Would start spironolactone 12.5, on discharge arrange f/u with Dr. Rosenbaum's office for electrolyte monitoring Can stop carvedilol given no indication (ischemia ruled out, and HFrEF ruled out) - Would not continue imdur on discharge given no indication - Lisinopril can be restarted as an outpatient as needed for HTN if renal function is stable Dr. Mcpherson recommends to resume home dose of 40mg daily. Annie Corrales, RN ORTHOTIC TECHNICIAN.[employer] Acute on chronic systolic CHF (congestive heart failure) 10/04/2019 11/25/2019 Fall 07/17/2018 11/25/2019 Difficulty coping 06/20/2018 06/26/2018 Overview: --social work following for supportive counseling --Zyprexa added for recent depressed mood --mood has improved, gabapentin was DC'd as well daughter recalled patient taking this in the past and having severe depression and suicidal ideation (added to allergies) Hyperkalemia 06/18/2018 2018 Overview: K 5.2, will d/c lisinopril Chemotherapy induced nausea and vomiting 018 07/02/2018 Overview: --compazine, Ativan and zofran prn. JOSE ENRIQUE (acute kidney injury) 06/16/20182017 Overview: Acute increase of sCr to 1.5 on 06/16, but now down to 1.03 ( at baseline). will monitor at this time, if sCr rises, then will stop lisinopril Bilateral lower extremity edema 06/13/2018 07/17/2018 Overview: --uses 40 lasix po at home as needed --diurese as needed. 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 Leg DVT (deep venous thromboembolism), acute, le ft 01/02/2018 11/25/2019 Overview: --acute DVT gastrocnemius found 12/13/2017 --continue apixaban till platelets <50K, last dose 06/21/2018 Adjustment insomnia 12/07/2017 05/14/2018 Class 1 obesity due to exces s calories with serious comorbidity and body mass index (BMI) of 34.0 to 34.9 in adult 06/26/2017 11/25/2019 Vitamin D deficiency 12/31/2014 06/27/2017 Acute bronchitis with chroni c obstructive pulmonary disease (COPD) 12/30/2014 06/26/2017 Venous insufficiency, peripheral 01/06/2014 11/25/2019 Esophagitis, unspecified 09/25/2012 014 Special screening for malignant neoplasms, colon 09/06/2012 06/13/2018 Tobacco abuse 12/27/2011 10/01/2012 documented as of this encounter (statuses as of 04/19/2022) [facility]2020 History of Past illness Narrative* Problem Noted Date Resolved Date Chest pressure 10/23/2019 11/25/2019 Wheezing 10/23/2019 11/25/2019 Shortness of breath 10/22/2019 11/25/2019 Overview: Admitted with shortness of breath and fluid retention due to comp,ex history, admitted for management and work-up to determine cardiac causes versus primary pulmonary. He was diuresed with IV lasix, and lost 13 pounds in 3 days. Feels much better able to walk in the hallway few laps. Pulmonary team consulted work-up in progress Cardiac testing including echo, PET negative. Nuclear test to rule out amyloid - neg for cardiac Amyloid. Discussion with pulmonary team: No need for RHC this admission. Recommend repeat echo in 3 to 4 weeks (when euvolemic) and if RVSP is >50 mmhg, will need a right heart cath (pulmonary arterial HTN) Per HF team: Would start spironolactone 12.5, on discharge arrange f/u with Dr. Rosenbaum's office for electrolyte monitoring Can stop carvedilol given no indication (ischemia ruled out, and HFrEF ruled out) - Would not continue imdur on discharge given no indication - Lisinopril can be restarted as an outpatient as needed for HTN if renal function is stable Dr. Mcpherson recommends to resume home dose of 40mg daily. Annie Corrales RN ORTHOTIC TECHNICIAN.[employer] Acute on chronic systolic CHF (congestive heart failure) 10/04/2019 11/25/2019 Fall 07/17/2018 11/25/2019 Difficulty coping 06/20/2018 06/26/2018 Overview: --social work following for supportive counseling --Zyprexa added for recent depressed mood --mood has improved, gabapentin was DC'd as well daughter recalled patient taking this in the past and having severe depression and suicidal ideation (added to allergies) Hyperkalemia 06/18/2018 2018 Overview: K 5.2, will d/c lisinopril Chemotherapy induced nausea and vomiting 018 07/02/2018 Overview: --compazine, Ativan and zofran prn. JOSE ENRIQUE (acute kidney injury) 06/16/20182017 Overview: Acute increase of sCr to 1.5 on 06/16, but now down to 1.03 ( at baseline). will monitor at this time, if sCr rises, then will stop lisinopril Bilateral lower extremity edema 06/13/2018 07/17/2018 Overview: --uses 40 lasix po at home as needed --diurese as needed. 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 Leg DVT (deep venous thromboembolism), acute, le ft 01/02/2018 11/25/2019 Overview: --acute DVT gastrocnemius found 12/13/2017 --continue apixaban till platelets <50K, last dose 06/21/2018 Adjustment insomnia 12/07/2017 05/14/2018 Class 1 obesity due to exces s calories with serious comorbidity and body mass index (BMI) of 34.0 to 34.9 in adult 06/26/2017 11/25/2019 Vitamin D deficiency 12/31/2014 06/27/2017 Acute bronchitis with chroni c obstructive pulmonary disease (COPD) 12/30/2014 06/26/2017 Venous insufficiency, peripheral 01/06/2014 11/25/2019 Esophagitis, unspecified 09/25/2012 014 Special screening for malignant neoplasms, colon 09/06/2012 06/13/2018 Tobacco abuse 12/27/2011 10/01/2012 documented as of this encounter (statuses as of 04/19/2022) [facility]2020 History of Past illness Narrative* Problem Noted Date Resolved Date Chest pressure 10/23/2019 11/25/2019 Wheezing 10/23/2019 11/25/2019 Shortness of breath 10/22/2019 11/25/2019 Overview: Admitted with shortness of breath and fluid retention due to comp,ex history, admitted for management and work-up to determine cardiac causes versus primary pulmonary. He was diuresed with IV lasix, and lost 13 pounds in 3 days. Feels much better able to walk in the hallway few laps. Pulmonary team consulted work-up in progress Cardiac testing including echo, PET negative. Nuclear test to rule out amyloid - neg for cardiac Amyloid. Discussion with pulmonary team: No need for RHC this admission. Recommend repeat echo in 3 to 4 weeks (when euvolemic) and if RVSP is >50 mmhg, will need a right heart cath (pulmonary arterial HTN) Per HF team: Would start spironolactone 12.5, on discharge arrange f/u with Dr. Rosenbaum's office for electrolyte monitoring Can stop carvedilol given no indication (ischemia ruled out, and HFrEF ruled out) - Would not continue imdur on discharge given no indication - Lisinopril can be restarted as an outpatient as needed for HTN if renal function is stable Dr. Mcpherson recommends to resume home dose of 40mg daily. Annie Corrales RN ORTHOTIC TECHNICIAN.[employer] Acute on chronic systolic CHF (congestive heart failure) 10/04/2019 11/25/2019 Fall 07/17/2018 11/25/2019 Difficulty coping 06/20/2018 06/26/2018 Overview: --social work following for supportive counseling --Zyprexa added for recent depressed mood --mood has improved, gabapentin was DC'd as well daughter recalled patient taking this in the past and having severe depression and suicidal ideation (added to allergies) Hyperkalemia 06/18/2018 2018 Overview: K 5.2, will d/c lisinopril Chemotherapy induced nausea and vomiting 018 07/02/2018 Overview: --compazine, Ativan and zofran prn. JOSE ENRIQUE (acute kidney injury) 06/16/20182017 Overview: Acute increase of sCr to 1.5 on 06/16, but now down to 1.03 ( at baseline). will monitor at this time, if sCr rises, then will stop lisinopril Bilateral lower extremity edema 06/13/2018 07/17/2018 Overview: --uses 40 lasix po at home as needed --diurese as needed. 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 Leg DVT (deep venous thromboembolism), acute, le ft 01/02/2018 11/25/2019 Overview: --acute DVT gastrocnemius found 12/13/2017 --continue apixaban till platelets <50K, last dose 06/21/2018 Adjustment insomnia 12/07/2017 05/14/2018 Class 1 obesity due to exces s calories with serious comorbidity and body mass index (BMI) of 34.0 to 34.9 in adult 06/26/2017 11/25/2019 Vitamin D deficiency 12/31/2014 06/27/2017 Acute bronchitis with chroni c obstructive pulmonary disease (COPD) 12/30/2014 06/26/2017 Venous insufficiency, peripheral 01/06/2014 11/25/2019 Esophagitis, unspecified 09/25/2012 014 Special screening for malignant neoplasms, colon 09/06/2012 06/13/2018 Tobacco abuse 12/27/2011 10/01/2012 documented as of this encounter (statuses as of 04/25/2022) [facility]2020 History of Past illness Narrative* Problem Noted Date Resolved Date Chest pressure 10/23/2019 11/25/2019 Wheezing 10/23/2019 11/25/2019 Shortness of breath 10/22/2019 11/25/2019 Overview: Admitted with shortness of breath and fluid retention due to comp,ex history, admitted for management and work-up to determine cardiac causes versus primary pulmonary. He was diuresed with IV lasix, and lost 13 pounds in 3 days. Feels much better able to walk in the hallway few laps. Pulmonary team consulted work-up in progress Cardiac testing including echo, PET negative. Nuclear test to rule out amyloid - neg for cardiac Amyloid. Discussion with pulmonary team: No need for RHC this admission. Recommend repeat echo in 3 to 4 weeks (when euvolemic) and if RVSP is >50 mmhg, will need a right heart cath (pulmonary arterial HTN) Per HF team: Would start spironolactone 12.5, on discharge arrange f/u with Dr. Rosenbaum's office for electrolyte monitoring Can stop carvedilol given no indication (ischemia ruled out, and HFrEF ruled out) - Would not continue imdur on discharge given no indication - Lisinopril can be restarted as an outpatient as needed for HTN if renal function is stable Dr. Mcpherson recommends to resume home dose of 40mg daily. Annie Corrales RN ORTHOTIC TECHNICIAN.[employer] Acute on chronic systolic CHF (congestive heart failure) 10/04/2019 11/25/2019 Fall 07/17/2018 11/25/2019 Difficulty coping 06/20/2018 06/26/2018 Overview: --social work following for supportive counseling --Zyprexa added for recent depressed mood --mood has improved, gabapentin was DC'd as well daughter recalled patient taking this in the past and having severe depression and suicidal ideation (added to allergies) Hyperkalemia 06/18/2018 2018 Overview: K 5.2, will d/c lisinopril Chemotherapy induced nausea and vomiting 018 07/02/2018 Overview: --compazine, Ativan and zofran prn. JOSE ENRIQUE (acute kidney injury) 06/16/20182017 Overview: Acute increase of sCr to 1.5 on 06/16, but now down to 1.03 ( at baseline). will monitor at this time, if sCr rises, then will stop lisinopril Bilateral lower extremity edema 06/13/2018 07/17/2018 Overview: --uses 40 lasix po at home as needed --diurese as needed. 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 Leg DVT (deep venous thromboembolism), acute, le ft 01/02/2018 11/25/2019 Overview: --acute DVT gastrocnemius found 12/13/2017 --continue apixaban till platelets <50K, last dose 06/21/2018 Adjustment insomnia 12/07/2017 05/14/2018 Class 1 obesity due to exces s calories with serious comorbidity and body mass index (BMI) of 34.0 to 34.9 in adult 06/26/2017 11/25/2019 Vitamin D deficiency 12/31/2014 06/27/2017 Acute bronchitis with chroni c obstructive pulmonary disease (COPD) 12/30/2014 06/26/2017 Venous insufficiency, peripheral 01/06/2014 11/25/2019 Esophagitis, unspecified 09/25/2012 014 Special screening for malignant neoplasms, colon 09/06/2012 06/13/2018 Tobacco abuse 12/27/2011 10/01/2012 documented as of this encounter (statuses as of 04/26/2022) [facility] History of Past illness Narrative* Problem Noted Date Resolved Date Chest pressure 10/23/2019 11/25/2019 Wheezing 10/23/2019 11/25/2019 Shortness of breath 10/22/2019 11/25/2019 Overview: Admitted with shortness of breath and fluid retention due to comp,ex history, admitted for management and work-up to determine cardiac causes versus primary pulmonary. He was diuresed with IV lasix, and lost 13 pounds in 3 days. Feels much better able to walk in the hallway few laps. Pulmonary team consulted work-up in progress Cardiac testing including echo, PET negative. Nuclear test to rule out amyloid - neg for cardiac Amyloid. Discussion with pulmonary team: No need for RHC this admission. Recommend repeat echo in 3 to 4 weeks (when euvolemic) and if RVSP is >50 mmhg, will need a right heart cath (pulmonary arterial HTN) Per HF team: Would start spironolactone 12.5, on discharge arrange f/u with Dr. Rosenbaum's office for electrolyte monitoring Can stop carvedilol given no indication (ischemia ruled out, and HFrEF ruled out) - Would not continue imdur on discharge given no indication - Lisinopril can be restarted as an outpatient as needed for HTN if renal function is stable Dr. Mcpherson recommends to resume home dose of 40mg daily. Annie Corrales, RN ORTHOTIC TECHNICIAN.[employer] Acute on chronic systolic CHF (congestive heart failure) 10/04/2019 11/25/2019 Fall 07/17/2018 11/25/2019 Difficulty coping 06/20/2018 06/26/2018 Overview: --social work following for supportive counseling --Zyprexa added for recent depressed mood --mood has improved, gabapentin was DC'd as well daughter recalled patient taking this in the past and having severe depression and suicidal ideation (added to allergies) Hyperkalemia 06/18/2018 2018 Overview: K 5.2, will d/c lisinopril Chemotherapy induced nausea and vomiting 018 07/02/2018 Overview: --compazine, Ativan and zofran prn. JOSE ENRIQUE (acute kidney injury) 06/16/20182017 Overview: Acute increase of sCr to 1.5 on 06/16, but now down to 1.03 ( at baseline). will monitor at this time, if sCr rises, then will stop lisinopril Bilateral lower extremity edema 06/13/2018 07/17/2018 Overview: --uses 40 lasix po at home as needed --diurese as needed. 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 Leg DVT (deep venous thromboembolism), acute, le ft 01/02/2018 11/25/2019 Overview: --acute DVT gastrocnemius found 12/13/2017 --continue apixaban till platelets <50K, last dose 06/21/2018 Adjustment insomnia 12/07/2017 05/14/2018 Class 1 obesity due to exces s calories with serious comorbidity and body mass index (BMI) of 34.0 to 34.9 in adult 06/26/2017 11/25/2019 Vitamin D deficiency 12/31/2014 06/27/2017 Acute bronchitis with chroni c obstructive pulmonary disease (COPD) 12/30/2014 06/26/2017 Venous insufficiency, peripheral 01/06/2014 11/25/2019 Esophagitis, unspecified 09/25/2012 014 Special screening for malignant neoplasms, colon 09/06/2012 06/13/2018 Tobacco abuse 12/27/2011 10/01/2012 documented as of this encounter (statuses as of 04/27/2022) [facility] History of Past illness Narrative* Problem Noted Date Resolved Date Chest pressure 10/23/2019 11/25/2019 Wheezing 10/23/2019 11/25/2019 Shortness of breath 10/22/2019 11/25/2019 Overview: Admitted with shortness of breath and fluid retention due to comp,ex history, admitted for management and work-up to determine cardiac causes versus primary pulmonary. He was diuresed with IV lasix, and lost 13 pounds in 3 days. Feels much better able to walk in the hallway few laps. Pulmonary team consulted work-up in progress Cardiac testing including echo, PET negative. Nuclear test to rule out amyloid - neg for cardiac Amyloid. Discussion with pulmonary team: No need for RHC this admission. Recommend repeat echo in 3 to 4 weeks (when euvolemic) and if RVSP is >50 mmhg, will need a right heart cath (pulmonary arterial HTN) Per HF team: Would start spironolactone 12.5, on discharge arrange f/u with Dr. Rosenbaum's office for electrolyte monitoring Can stop carvedilol given no indication (ischemia ruled out, and HFrEF ruled out) - Would not continue imdur on discharge given no indication - Lisinopril can be restarted as an outpatient as needed for HTN if renal function is stable Dr. Mcpherson recommends to resume home dose of 40mg daily. Annie Corrales RN ORTHOTIC TECHNICIAN.[employer] Acute on chronic systolic CHF (congestive heart failure) 10/04/2019 11/25/2019 Fall 07/17/2018 11/25/2019 Difficulty coping 06/20/2018 06/26/2018 Overview: --social work following for supportive counseling --Zyprexa added for recent depressed mood --mood has improved, gabapentin was DC'd as well daughter recalled patient taking this in the past and having severe depression and suicidal ideation (added to allergies) Hyperkalemia 06/18/2018 2018 Overview: K 5.2, will d/c lisinopril Chemotherapy induced nausea and vomiting 018 07/02/2018 Overview: --compazine, Ativan and zofran prn. JOSE ENRIQUE (acute kidney injury) 06/16/20182017 Overview: Acute increase of sCr to 1.5 on 06/16, but now down to 1.03 ( at baseline). will monitor at this time, if sCr rises, then will stop lisinopril Bilateral lower extremity edema 06/13/2018 07/17/2018 Overview: --uses 40 lasix po at home as needed --diurese as needed. 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 Leg DVT (deep venous thromboembolism), acute, le ft 01/02/2018 11/25/2019 Overview: --acute DVT gastrocnemius found 12/13/2017 --continue apixaban till platelets <50K, last dose 06/21/2018 Adjustment insomnia 12/07/2017 05/14/2018 Class 1 obesity due to exces s calories with serious comorbidity and body mass index (BMI) of 34.0 to 34.9 in adult 06/26/2017 11/25/2019 Vitamin D deficiency 12/31/2014 06/27/2017 Acute bronchitis with chroni c obstructive pulmonary disease (COPD) 12/30/2014 06/26/2017 Venous insufficiency, peripheral 01/06/2014 11/25/2019 Esophagitis, unspecified 09/25/2012 014 Special screening for malignant neoplasms, colon 09/06/2012 06/13/2018 Tobacco abuse 12/27/2011 10/01/2012 documented as of this encounter (statuses as of 05/02/2022) [facility]02-05-2020 History of Past illness Narrative* Problem Noted Date Resolved Date Chest pressure 10/23/2019 11/25/2019 Wheezing 10/23/2019 11/25/2019 Shortness of breath 10/22/2019 11/25/2019 Overview: Admitted with shortness of breath and fluid retention due to comp,ex history, admitted for management and work-up to determine cardiac causes versus primary pulmonary. He was diuresed with IV lasix, and lost 13 pounds in 3 days. Feels much better able to walk in the hallway few laps. Pulmonary team consulted work-up in progress Cardiac testing including echo, PET negative. Nuclear test to rule out amyloid - neg for cardiac Amyloid. Discussion with pulmonary team: No need for RHC this admission. Recommend repeat echo in 3 to 4 weeks (when euvolemic) and if RVSP is >50 mmhg, will need a right heart cath (pulmonary arterial HTN) Per HF team: Would start spironolactone 12.5, on discharge arrange f/u with Dr. Rosenbaum's office for electrolyte monitoring Can stop carvedilol given no indication (ischemia ruled out, and HFrEF ruled out) - Would not continue imdur on discharge given no indication - Lisinopril can be restarted as an outpatient as needed for HTN if renal function is stable Dr. Mcpherson recommends to resume home dose of 40mg daily. Annie Corrales RN ORTHOTIC TECHNICIAN.[employer] Acute on chronic systolic CHF (congestive heart failure) 10/04/2019 11/25/2019 Fall 07/17/2018 11/25/2019 Difficulty coping 06/20/2018 06/26/2018 Overview: --social work following for supportive counseling --Zyprexa added for recent depressed mood --mood has improved, gabapentin was DC'd as well daughter recalled patient taking this in the past and having severe depression and suicidal ideation (added to allergies) Hyperkalemia 06/18/2018 2018 Overview: K 5.2, will d/c lisinopril Chemotherapy induced nausea and vomiting 018 07/02/2018 Overview: --compazine, Ativan and zofran prn. JOSE ENRIQUE (acute kidney injury) 06/16/20182017 Overview: Acute increase of sCr to 1.5 on 06/16, but now down to 1.03 ( at baseline). will monitor at this time, if sCr rises, then will stop lisinopril Bilateral lower extremity edema 06/13/2018 07/17/2018 Overview: --uses 40 lasix po at home as needed --diurese as needed. 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 Leg DVT (deep venous thromboembolism), acute, le ft 01/02/2018 11/25/2019 Overview: --acute DVT gastrocnemius found 12/13/2017 --continue apixaban till platelets <50K, last dose 06/21/2018 Adjustment insomnia 12/07/2017 05/14/2018 Class 1 obesity due to exces s calories with serious comorbidity and body mass index (BMI) of 34.0 to 34.9 in adult 06/26/2017 11/25/2019 Vitamin D deficiency 12/31/2014 06/27/2017 Acute bronchitis with chroni c obstructive pulmonary disease (COPD) 12/30/2014 06/26/2017 Venous insufficiency, peripheral 01/06/2014 11/25/2019 Esophagitis, unspecified 09/25/2012 014 Special screening for malignant neoplasms, colon 09/06/2012 06/13/2018 Tobacco abuse 12/27/2011 10/01/2012 documented as of this encounter (statuses as of 05/11/2022) [facility]02-[facility]-2020 History of Past illness Narrative* Problem Noted Date Resolved Date Chest pressure 10/23/2019 11/25/2019 Wheezing 10/23/2019 11/25/2019 Shortness of breath 10/22/2019 11/25/2019 Overview: Admitted with shortness of breath and fluid retention due to comp,ex history, admitted for management and work-up to determine cardiac causes versus primary pulmonary. He was diuresed with IV lasix, and lost 13 pounds in 3 days. Feels much better able to walk in the hallway few laps. Pulmonary team consulted work-up in progress Cardiac testing including echo, PET negative. Nuclear test to rule out amyloid - neg for cardiac Amyloid. Discussion with pulmonary team: No need for RHC this admission. Recommend repeat echo in 3 to 4 weeks (when euvolemic) and if RVSP is >50 mmhg, will need a right heart cath (pulmonary arterial HTN) Per HF team: Would start spironolactone 12.5, on discharge arrange f/u with Dr. Rosenbaum's office for electrolyte monitoring Can stop carvedilol given no indication (ischemia ruled out, and HFrEF ruled out) - Would not continue imdur on discharge given no indication - Lisinopril can be restarted as an outpatient as needed for HTN if renal function is stable Dr. Mcpherson recommends to resume home dose of 40mg daily. Annie Corrales RN ORTHOTIC TECHNICIAN.[employer] Acute on chronic systolic CHF (congestive heart failure) 10/04/2019 11/25/2019 Fall 07/17/2018 11/25/2019 Difficulty coping 06/20/2018 06/26/2018 Overview: --social work following for supportive counseling --Zyprexa added for recent depressed mood --mood has improved, gabapentin was DC'd as well daughter recalled patient taking this in the past and having severe depression and suicidal ideation (added to allergies) Hyperkalemia 06/18/2018 2018 Overview: K 5.2, will d/c lisinopril Chemotherapy induced nausea and vomiting 018 07/02/2018 Overview: --compazine, Ativan and zofran prn. JOSE ENRIQUE (acute kidney injury) 06/16/20182017 Overview: Acute increase of sCr to 1.5 on 06/16, but now down to 1.03 ( at baseline). will monitor at this time, if sCr rises, then will stop lisinopril Bilateral lower extremity edema 06/13/2018 07/17/2018 Overview: --uses 40 lasix po at home as needed --diurese as needed. 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 Leg DVT (deep venous thromboembolism), acute, le ft 01/02/2018 11/25/2019 Overview: --acute DVT gastrocnemius found 12/13/2017 --continue apixaban till platelets <50K, last dose 06/21/2018 Adjustment insomnia 12/07/2017 05/14/2018 Class 1 obesity due to exces s calories with serious comorbidity and body mass index (BMI) of 34.0 to 34.9 in adult 06/26/2017 11/25/2019 Vitamin D deficiency 12/31/2014 06/27/2017 Acute bronchitis with chroni c obstructive pulmonary disease (COPD) 12/30/2014 06/26/2017 Venous insufficiency, peripheral 01/06/2014 11/25/2019 Esophagitis, unspecified 09/25/2012 014 Special screening for malignant neoplasms, colon 09/06/2012 06/13/2018 Tobacco abuse 12/27/2011 10/01/2012 documented as of this encounter (statuses as of 05/25/2022) [facility]2020 History of Past illness Narrative* Problem Noted Date Resolved Date Chest pressure 10/23/2019 11/25/2019 Wheezing 10/23/2019 11/25/2019 Shortness of breath 10/22/2019 11/25/2019 Overview: Admitted with shortness of breath and fluid retention due to comp,ex history, admitted for management and work-up to determine cardiac causes versus primary pulmonary. He was diuresed with IV lasix, and lost 13 pounds in 3 days. Feels much better able to walk in the hallway few laps. Pulmonary team consulted work-up in progress Cardiac testing including echo, PET negative. Nuclear test to rule out amyloid - neg for cardiac Amyloid. Discussion with pulmonary team: No need for RHC this admission. Recommend repeat echo in 3 to 4 weeks (when euvolemic) and if RVSP is >50 mmhg, will need a right heart cath (pulmonary arterial HTN) Per HF team: Would start spironolactone 12.5, on discharge arrange f/u with Dr. Rosenbaum's office for electrolyte monitoring Can stop carvedilol given no indication (ischemia ruled out, and HFrEF ruled out) - Would not continue imdur on discharge given no indication - Lisinopril can be restarted as an outpatient as needed for HTN if renal function is stable Dr. Mcpherson recommends to resume home dose of 40mg daily. Annie Corrales RN ORTHOTIC TECHNICIAN.[employer] Acute on chronic systolic CHF (congestive heart failure) 10/04/2019 11/25/2019 Fall 07/17/2018 11/25/2019 Difficulty coping 06/20/2018 06/26/2018 Overview: --social work following for supportive counseling --Zyprexa added for recent depressed mood --mood has improved, gabapentin was DC'd as well daughter recalled patient taking this in the past and having severe depression and suicidal ideation (added to allergies) Hyperkalemia 06/18/2018 2018 Overview: K 5.2, will d/c lisinopril Chemotherapy induced nausea and vomiting 018 07/02/2018 Overview: --compazine, Ativan and zofran prn. JOSE ENRIQUE (acute kidney injury) 06/16/20182017 Overview: Acute increase of sCr to 1.5 on 06/16, but now down to 1.03 ( at baseline). will monitor at this time, if sCr rises, then will stop lisinopril Bilateral lower extremity edema 06/13/2018 07/17/2018 Overview: --uses 40 lasix po at home as needed --diurese as needed. 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 Leg DVT (deep venous thromboembolism), acute, le ft 01/02/2018 11/25/2019 Overview: --acute DVT gastrocnemius found 12/13/2017 --continue apixaban till platelets <50K, last dose 06/21/2018 Adjustment insomnia 12/07/2017 05/14/2018 Class 1 obesity due to exces s calories with serious comorbidity and body mass index (BMI) of 34.0 to 34.9 in adult 06/26/2017 11/25/2019 Vitamin D deficiency 12/31/2014 06/27/2017 Acute bronchitis with chroni c obstructive pulmonary disease (COPD) 12/30/2014 06/26/2017 Venous insufficiency, peripheral 01/06/2014 11/25/2019 Esophagitis, unspecified 09/25/2012 014 Special screening for malignant neoplasms, colon 09/06/2012 06/13/2018 Tobacco abuse 12/27/2011 10/01/2012 documented as of this encounter (statuses as of 05/31/2022) [facility] History of Past illness Narrative* Problem Noted Date Resolved Date Chest pressure 10/23/2019 11/25/2019 Wheezing 10/23/2019 11/25/2019 Shortness of breath 10/22/2019 11/25/2019 Overview: Admitted with shortness of breath and fluid retention due to comp,ex history, admitted for management and work-up to determine cardiac causes versus primary pulmonary. He was diuresed with IV lasix, and lost 13 pounds in 3 days. Feels much better able to walk in the hallway few laps. Pulmonary team consulted work-up in progress Cardiac testing including echo, PET negative. Nuclear test to rule out amyloid - neg for cardiac Amyloid. Discussion with pulmonary team: No need for RHC this admission. Recommend repeat echo in 3 to 4 weeks (when euvolemic) and if RVSP is >50 mmhg, will need a right heart cath (pulmonary arterial HTN) Per HF team: Would start spironolactone 12.5, on discharge arrange f/u with Dr. Rosenbaum's office for electrolyte monitoring Can stop carvedilol given no indication (ischemia ruled out, and HFrEF ruled out) - Would not continue imdur on discharge given no indication - Lisinopril can be restarted as an outpatient as needed for HTN if renal function is stable Dr. Mcpherson recommends to resume home dose of 40mg daily. Annie Corrales RN ORTHOTIC TECHNICIAN.[employer] Acute on chronic systolic CHF (congestive heart failure) 10/04/2019 11/25/2019 Fall 07/17/2018 11/25/2019 Difficulty coping 06/20/2018 06/26/2018 Overview: --social work following for supportive counseling --Zyprexa added for recent depressed mood --mood has improved, gabapentin was DC'd as well daughter recalled patient taking this in the past and having severe depression and suicidal ideation (added to allergies) Hyperkalemia 06/18/2018 2018 Overview: K 5.2, will d/c lisinopril Chemotherapy induced nausea and vomiting 018 07/02/2018 Overview: --compazine, Ativan and zofran prn. JOSE ENRIQUE (acute kidney injury) 06/16/20182017 Overview: Acute increase of sCr to 1.5 on 06/16, but now down to 1.03 ( at baseline). will monitor at this time, if sCr rises, then will stop lisinopril Bilateral lower extremity edema 06/13/2018 07/17/2018 Overview: --uses 40 lasix po at home as needed --diurese as needed. 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 Leg DVT (deep venous thromboembolism), acute, le ft 01/02/2018 11/25/2019 Overview: --acute DVT gastrocnemius found 12/13/2017 --continue apixaban till platelets <50K, last dose 06/21/2018 Adjustment insomnia 12/07/2017 05/14/2018 Class 1 obesity due to exces s calories with serious comorbidity and body mass index (BMI) of 34.0 to 34.9 in adult 06/26/2017 11/25/2019 Vitamin D deficiency 12/31/2014 06/27/2017 Acute bronchitis with chroni c obstructive pulmonary disease (COPD) 12/30/2014 06/26/2017 Venous insufficiency, peripheral 01/06/2014 11/25/2019 Esophagitis, unspecified 09/25/2012 04/21/2 014 Special screening for malignant neoplasms, colon 09/06/2012 06/13/2018 Tobacco abuse 12/27/2011 10/01/2012 documented as of this encounter (statuses as of 06/02/2022) [facility]2020 History of Past illness Narrative* Problem Noted Date Resolved Date Chest pressure 10/23/2019 11/25/2019 Wheezing 10/23/2019 11/25/2019 Shortness of breath 10/22/2019 11/25/2019 Overview: Admitted with shortness of breath and fluid retention due to comp,ex history, admitted for management and work-up to determine cardiac causes versus primary pulmonary. He was diuresed with IV lasix, and lost 13 pounds in 3 days. Feels much better able to walk in the hallway few laps. Pulmonary team consulted work-up in progress Cardiac testing including echo, PET negative. Nuclear test to rule out amyloid - neg for cardiac Amyloid. Discussion with pulmonary team: No need for RHC this admission. Recommend repeat echo in 3 to 4 weeks (when euvolemic) and if RVSP is >50 mmhg, will need a right heart cath (pulmonary arterial HTN) Per HF team: Would start spironolactone 12.5, on discharge arrange f/u with Dr. Rosenbaum's office for electrolyte monitoring Can stop carvedilol given no indication (ischemia ruled out, and HFrEF ruled out) - Would not continue imdur on discharge given no indication - Lisinopril can be restarted as an outpatient as needed for HTN if renal function is stable Dr. Mcpherson recommends to resume home dose of 40mg daily. Annie Corrales RN ORTHOTIC TECHNICIAN.[employer] Acute on chronic systolic CHF (congestive heart failure) 10/04/2019 11/25/2019 Fall 07/17/2018 11/25/2019 Difficulty coping 06/20/2018 06/26/2018 Overview: --social work following for supportive counseling --Zyprexa added for recent depressed mood --mood has improved, gabapentin was DC'd as well daughter recalled patient taking this in the past and having severe depression and suicidal ideation (added to allergies) Hyperkalemia 06/18/2018 2018 Overview: K 5.2, will d/c lisinopril Chemotherapy induced nausea and vomiting 018 07/02/2018 Overview: --compazine, Ativan and zofran prn. JOSE ENRIQUE (acute kidney injury) 06/16/20182017 Overview: Acute increase of sCr to 1.5 on 06/16, but now down to 1.03 ( at baseline). will monitor at this time, if sCr rises, then will stop lisinopril Bilateral lower extremity edema 06/13/2018 07/17/2018 Overview: --uses 40 lasix po at home as needed --diurese as needed. 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 Leg DVT (deep venous thromboembolism), acute, le ft 01/02/2018 11/25/2019 Overview: --acute DVT gastrocnemius found 12/13/2017 --continue apixaban till platelets <50K, last dose 06/21/2018 Adjustment insomnia 12/07/2017 05/14/2018 Class 1 obesity due to exces s calories with serious comorbidity and body mass index (BMI) of 34.0 to 34.9 in adult 06/26/2017 11/25/2019 Vitamin D deficiency 12/31/2014 06/27/2017 Acute bronchitis with chroni c obstructive pulmonary disease (COPD) 12/30/2014 06/26/2017 Venous insufficiency, peripheral 01/06/2014 11/25/2019 Esophagitis, unspecified 09/25/2012 014 Special screening for malignant neoplasms, colon 09/06/2012 06/13/2018 Tobacco abuse 12/27/2011 10/01/2012 documented as of this encounter (statuses as of 06/08/2022) [facility]2020 History of Past illness Narrative* Problem Noted Date Resolved Date Chest pressure 10/23/2019 11/25/2019 Wheezing 10/23/2019 11/25/2019 Shortness of breath 10/22/2019 11/25/2019 Overview: Admitted with shortness of breath and fluid retention due to comp,ex history, admitted for management and work-up to determine cardiac causes versus primary pulmonary. He was diuresed with IV lasix, and lost 13 pounds in 3 days. Feels much better able to walk in the hallway few laps. Pulmonary team consulted work-up in progress Cardiac testing including echo, PET negative. Nuclear test to rule out amyloid - neg for cardiac Amyloid. Discussion with pulmonary team: No need for RHC this admission. Recommend repeat echo in 3 to 4 weeks (when euvolemic) and if RVSP is >50 mmhg, will need a right heart cath (pulmonary arterial HTN) Per HF team: Would start spironolactone 12.5, on discharge arrange f/u with Dr. Rosenbaum's office for electrolyte monitoring Can stop carvedilol given no indication (ischemia ruled out, and HFrEF ruled out) - Would not continue imdur on discharge given no indication - Lisinopril can be restarted as an outpatient as needed for HTN if renal function is stable Dr. Mcpherson recommends to resume home dose of 40mg daily. Annie Corrales, RN ORTHOTIC TECHNICIAN.[employer] Acute on chronic systolic CHF (congestive heart failure) 10/04/2019 11/25/2019 Fall 07/17/2018 11/25/2019 Difficulty coping 06/20/2018 06/26/2018 Overview: --social work following for supportive counseling --Zyprexa added for recent depressed mood --mood has improved, gabapentin was DC'd as well daughter recalled patient taking this in the past and having severe depression and suicidal ideation (added to allergies) Hyperkalemia 06/18/2018 2018 Overview: K 5.2, will d/c lisinopril Chemotherapy induced nausea and vomiting 018 07/02/2018 Overview: --compazine, Ativan and zofran prn. JOSE ENRIQUE (acute kidney injury) 06/16/20182017 Overview: Acute increase of sCr to 1.5 on 06/16, but now down to 1.03 ( at baseline). will monitor at this time, if sCr rises, then will stop lisinopril Bilateral lower extremity edema 06/13/2018 07/17/2018 Overview: --uses 40 lasix po at home as needed --diurese as needed. 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 Leg DVT (deep venous thromboembolism), acute, le ft 01/02/2018 11/25/2019 Overview: --acute DVT gastrocnemius found 12/13/2017 --continue apixaban till platelets <50K, last dose 06/21/2018 Adjustment insomnia 12/07/2017 05/14/2018 Class 1 obesity due to exces s calories with serious comorbidity and body mass index (BMI) of 34.0 to 34.9 in adult 06/26/2017 11/25/2019 Vitamin D deficiency 12/31/2014 06/27/2017 Acute bronchitis with chroni c obstructive pulmonary disease (COPD) 12/30/2014 06/26/2017 Venous insufficiency, peripheral 01/06/2014 11/25/2019 Esophagitis, unspecified 09/25/2012 014 Special screening for malignant neoplasms, colon 09/06/2012 06/13/2018 Tobacco abuse 12/27/2011 10/01/2012 documented as of this encounter (statuses as of 06/10/2022) [facility] History of Past illness Narrative* Problem Noted Date Resolved Date Chest pressure 10/23/2019 11/25/2019 Wheezing 10/23/2019 11/25/2019 Shortness of breath 10/22/2019 11/25/2019 Overview: Admitted with shortness of breath and fluid retention due to comp,ex history, admitted for management and work-up to determine cardiac causes versus primary pulmonary. He was diuresed with IV lasix, and lost 13 pounds in 3 days. Feels much better able to walk in the hallway few laps. Pulmonary team consulted work-up in progress Cardiac testing including echo, PET negative. Nuclear test to rule out amyloid - neg for cardiac Amyloid. Discussion with pulmonary team: No need for RHC this admission. Recommend repeat echo in 3 to 4 weeks (when euvolemic) and if RVSP is >50 mmhg, will need a right heart cath (pulmonary arterial HTN) Per HF team: Would start spironolactone 12.5, on discharge arrange f/u with Dr. Rosenbaum's office for electrolyte monitoring Can stop carvedilol given no indication (ischemia ruled out, and HFrEF ruled out) - Would not continue imdur on discharge given no indication - Lisinopril can be restarted as an outpatient as needed for HTN if renal function is stable Dr. Mcpherson recommends to resume home dose of 40mg daily. Annie Corrales, RN ORTHOTIC TECHNICIAN.[employer] Acute on chronic systolic CHF (congestive heart failure) 10/04/2019 11/25/2019 Fall 07/17/2018 11/25/2019 Difficulty coping 06/20/2018 06/26/2018 Overview: --social work following for supportive counseling --Zyprexa added for recent depressed mood --mood has improved, gabapentin was DC'd as well daughter recalled patient taking this in the past and having severe depression and suicidal ideation (added to allergies) Hyperkalemia 06/18/2018 2018 Overview: K 5.2, will d/c lisinopril Chemotherapy induced nausea and vomiting 018 07/02/2018 Overview: --compazine, Ativan and zofran prn. JOSE ENRIQUE (acute kidney injury) 06/16/20182017 Overview: Acute increase of sCr to 1.5 on 06/16, but now down to 1.03 ( at baseline). will monitor at this time, if sCr rises, then will stop lisinopril Bilateral lower extremity edema 06/13/2018 07/17/2018 Overview: --uses 40 lasix po at home as needed --diurese as needed. 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 Leg DVT (deep venous thromboembolism), acute, le ft 01/02/2018 11/25/2019 Overview: --acute DVT gastrocnemius found 12/13/2017 --continue apixaban till platelets <50K, last dose 06/21/2018 Adjustment insomnia 12/07/2017 05/14/2018 Class 1 obesity due to exces s calories with serious comorbidity and body mass index (BMI) of 34.0 to 34.9 in adult 06/26/2017 11/25/2019 Vitamin D deficiency 12/31/2014 06/27/2017 Acute bronchitis with chroni c obstructive pulmonary disease (COPD) 12/30/2014 06/26/2017 Venous insufficiency, peripheral 01/06/2014 11/25/2019 Esophagitis, unspecified 09/25/2012 014 Special screening for malignant neoplasms, colon 09/06/2012 06/13/2018 Tobacco abuse 12/27/2011 10/01/2012 documented as of this encounter (statuses as of 06/20/2022) [facility]-2020 History of Past illness Narrative* Problem Noted Date Resolved Date Chest pressure 10/23/2019 11/25/2019 Wheezing 10/23/2019 11/25/2019 Shortness of breath 10/22/2019 11/25/2019 Overview: Admitted with shortness of breath and fluid retention due to comp,ex history, admitted for management and work-up to determine cardiac causes versus primary pulmonary. He was diuresed with IV lasix, and lost 13 pounds in 3 days. Feels much better able to walk in the hallway few laps. Pulmonary team consulted work-up in progress Cardiac testing including echo, PET negative. Nuclear test to rule out amyloid - neg for cardiac Amyloid. Discussion with pulmonary team: No need for RHC this admission. Recommend repeat echo in 3 to 4 weeks (when euvolemic) and if RVSP is >50 mmhg, will need a right heart cath (pulmonary arterial HTN) Per HF team: Would start spironolactone 12.5, on discharge arrange f/u with Dr. Rosenbaum's office for electrolyte monitoring Can stop carvedilol given no indication (ischemia ruled out, and HFrEF ruled out) - Would not continue imdur on discharge given no indication - Lisinopril can be restarted as an outpatient as needed for HTN if renal function is stable Dr. Mcpherson recommends to resume home dose of 40mg daily. Annie I Corrales, RN ORTHOTIC TECHNICIAN.[employer] Acute on chronic systolic CHF (congestive heart failure) 10/04/2019 11/25/2019 Fall 07/17/2018 11/25/2019 Difficulty coping 06/20/2018 06/26/2018 Overview: --social work following for supportive counseling --Zyprexa added for recent depressed mood --mood has improved, gabapentin was DC'd as well daughter recalled patient taking this in the past and having severe depression and suicidal ideation (added to allergies) Hyperkalemia 06/18/2018 2018 Overview: K 5.2, will d/c lisinopril Chemotherapy induced nausea and vomiting 018 07/02/2018 Overview: --compazine, Ativan and zofran prn. JOSE ENRIQUE (acute kidney injury) 06/16/20182017 Overview: Acute increase of sCr to 1.5 on 06/16, but now down to 1.03 ( at baseline). will monitor at this time, if sCr rises, then will stop lisinopril Bilateral lower extremity edema 06/13/2018 07/17/2018 Overview: --uses 40 lasix po at home as needed --diurese as needed. 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 Leg DVT (deep venous thromboembolism), acute, le ft 01/02/2018 11/25/2019 Overview: --acute DVT gastrocnemius found 12/13/2017 --continue apixaban till platelets <50K, last dose 06/21/2018 Adjustment insomnia 12/07/2017 05/14/2018 Class 1 obesity due to exces s calories with serious comorbidity and body mass index (BMI) of 34.0 to 34.9 in adult 06/26/2017 11/25/2019 Vitamin D deficiency 12/31/2014 06/27/2017 Acute bronchitis with chroni c obstructive pulmonary disease (COPD) 12/30/2014 06/26/2017 Venous insufficiency, peripheral 01/06/2014 11/25/2019 Esophagitis, unspecified 09/25/2012 014 Special screening for malignant neoplasms, colon 09/06/2012 06/13/2018 Tobacco abuse 12/27/2011 10/01/2012 documented as of this encounter (statuses as of 06/28/2022) [facility] History of Past illness Narrative* Problem Noted Date Resolved Date Chest pressure 10/23/2019 11/25/2019 Wheezing 10/23/2019 11/25/2019 Shortness of breath 10/22/2019 11/25/2019 Overview: Admitted with shortness of breath and fluid retention due to comp,ex history, admitted for management and work-up to determine cardiac causes versus primary pulmonary. He was diuresed with IV lasix, and lost 13 pounds in 3 days. Feels much better able to walk in the hallway few laps. Pulmonary team consulted work-up in progress Cardiac testing including echo, PET negative. Nuclear test to rule out amyloid - neg for cardiac Amyloid. Discussion with pulmonary team: No need for RHC this admission. Recommend repeat echo in 3 to 4 weeks (when euvolemic) and if RVSP is >50 mmhg, will need a right heart cath (pulmonary arterial HTN) Per HF team: Would start spironolactone 12.5, on discharge arrange f/u with Dr. Rosenbaum's office for electrolyte monitoring Can stop carvedilol given no indication (ischemia ruled out, and HFrEF ruled out) - Would not continue imdur on discharge given no indication - Lisinopril can be restarted as an outpatient as needed for HTN if renal function is stable Dr. Mcpherson recommends to resume home dose of 40mg daily. Annie Corrales RN ORTHOTIC TECHNICIAN.[employer] Acute on chronic systolic CHF (congestive heart failure) 10/04/2019 11/25/2019 Fall 07/17/2018 11/25/2019 Difficulty coping 06/20/2018 06/26/2018 Overview: --social work following for supportive counseling --Zyprexa added for recent depressed mood --mood has improved, gabapentin was DC'd as well daughter recalled patient taking this in the past and having severe depression and suicidal ideation (added to allergies) Hyperkalemia 06/18/2018 2018 Overview: K 5.2, will d/c lisinopril Chemotherapy induced nausea and vomiting 018 07/02/2018 Overview: --compazine, Ativan and zofran prn. JOSE ENRIQUE (acute kidney injury) 06/16/20182017 Overview: Acute increase of sCr to 1.5 on 06/16, but now down to 1.03 ( at baseline). will monitor at this time, if sCr rises, then will stop lisinopril Bilateral lower extremity edema 06/13/2018 07/17/2018 Overview: --uses 40 lasix po at home as needed --diurese as needed. 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 Leg DVT (deep venous thromboembolism), acute, le ft 01/02/2018 11/25/2019 Overview: --acute DVT gastrocnemius found 12/13/2017 --continue apixaban till platelets <50K, last dose 06/21/2018 Adjustment insomnia 12/07/2017 05/14/2018 Class 1 obesity due to exces s calories with serious comorbidity and body mass index (BMI) of 34.0 to 34.9 in adult 06/26/2017 11/25/2019 Vitamin D deficiency 12/31/2014 06/27/2017 Acute bronchitis with chroni c obstructive pulmonary disease (COPD) 12/30/2014 06/26/2017 Venous insufficiency, peripheral 01/06/2014 11/25/2019 Esophagitis, unspecified 09/25/2012 014 Special screening for malignant neoplasms, colon 09/06/2012 06/13/2018 Tobacco abuse 12/27/2011 10/01/2012 documented as of this encounter (statuses as of 06/29/2022) [facility]2020 History of Past illness Narrative* Problem Noted Date Resolved Date Chest pressure 10/23/2019 11/25/2019 Wheezing 10/23/2019 11/25/2019 Shortness of breath 10/22/2019 11/25/2019 Overview: Admitted with shortness of breath and fluid retention due to comp,ex history, admitted for management and work-up to determine cardiac causes versus primary pulmonary. He was diuresed with IV lasix, and lost 13 pounds in 3 days. Feels much better able to walk in the hallway few laps. Pulmonary team consulted work-up in progress Cardiac testing including echo, PET negative. Nuclear test to rule out amyloid - neg for cardiac Amyloid. Discussion with pulmonary team: No need for RHC this admission. Recommend repeat echo in 3 to 4 weeks (when euvolemic) and if RVSP is >50 mmhg, will need a right heart cath (pulmonary arterial HTN) Per HF team: Would start spironolactone 12.5, on discharge arrange f/u with Dr. Rosenbaum's office for electrolyte monitoring Can stop carvedilol given no indication (ischemia ruled out, and HFrEF ruled out) - Would not continue imdur on discharge given no indication - Lisinopril can be restarted as an outpatient as needed for HTN if renal function is stable Dr. Mcpherson recommends to resume home dose of 40mg daily. Annie Corrales RN ORTHOTIC TECHNICIAN.[employer] Acute on chronic systolic CHF (congestive heart failure) 10/04/2019 11/25/2019 Fall 07/17/2018 11/25/2019 Difficulty coping 06/20/2018 06/26/2018 Overview: --social work following for supportive counseling --Zyprexa added for recent depressed mood --mood has improved, gabapentin was DC'd as well daughter recalled patient taking this in the past and having severe depression and suicidal ideation (added to allergies) Hyperkalemia 06/18/2018 2018 Overview: K 5.2, will d/c lisinopril Chemotherapy induced nausea and vomiting 018 07/02/2018 Overview: --compazine, Ativan and zofran prn. JOSE ENRIQUE (acute kidney injury) 06/16/20182017 Overview: Acute increase of sCr to 1.5 on 06/16, but now down to 1.03 ( at baseline). will monitor at this time, if sCr rises, then will stop lisinopril Bilateral lower extremity edema 06/13/2018 07/17/2018 Overview: --uses 40 lasix po at home as needed --diurese as needed. 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 Leg DVT (deep venous thromboembolism), acute, le ft 01/02/2018 11/25/2019 Overview: --acute DVT gastrocnemius found 12/13/2017 --continue apixaban till platelets <50K, last dose 06/21/2018 Adjustment insomnia 12/07/2017 05/14/2018 Class 1 obesity due to exces s calories with serious comorbidity and body mass index (BMI) of 34.0 to 34.9 in adult 06/26/2017 11/25/2019 Vitamin D deficiency 12/31/2014 06/27/2017 Acute bronchitis with chroni c obstructive pulmonary disease (COPD) 12/30/2014 06/26/2017 Venous insufficiency, peripheral 01/06/2014 11/25/2019 Esophagitis, unspecified 09/25/2012 014 Special screening for malignant neoplasms, colon 09/06/2012 06/13/2018 Tobacco abuse 12/27/2011 10/01/2012 documented as of this encounter (statuses as of 07/04/2022) [facility] History of Past illness Narrative* Problem Noted Date Resolved Date Chest pressure 10/23/2019 11/25/2019 Wheezing 10/23/2019 11/25/2019 Shortness of breath 10/22/2019 11/25/2019 Overview: Admitted with shortness of breath and fluid retention due to comp,ex history, admitted for management and work-up to determine cardiac causes versus primary pulmonary. He was diuresed with IV lasix, and lost 13 pounds in 3 days. Feels much better able to walk in the hallway few laps. Pulmonary team consulted work-up in progress Cardiac testing including echo, PET negative. Nuclear test to rule out amyloid - neg for cardiac Amyloid. Discussion with pulmonary team: No need for RHC this admission. Recommend repeat echo in 3 to 4 weeks (when euvolemic) and if RVSP is >50 mmhg, will need a right heart cath (pulmonary arterial HTN) Per HF team: Would start spironolactone 12.5, on discharge arrange f/u with Dr. Rosenbaum's office for electrolyte monitoring Can stop carvedilol given no indication (ischemia ruled out, and HFrEF ruled out) - Would not continue imdur on discharge given no indication - Lisinopril can be restarted as an outpatient as needed for HTN if renal function is stable Dr. Mcpherson recommends to resume home dose of 40mg daily. Annie Corrales, RN ORTHOTIC TECHNICIAN.[employer] Acute on chronic systolic CHF (congestive heart failure) 10/04/2019 11/25/2019 Fall 07/17/2018 11/25/2019 Difficulty coping 06/20/2018 06/26/2018 Overview: --social work following for supportive counseling --Zyprexa added for recent depressed mood --mood has improved, gabapentin was DC'd as well daughter recalled patient taking this in the past and having severe depression and suicidal ideation (added to allergies) Hyperkalemia 06/18/2018 2018 Overview: K 5.2, will d/c lisinopril Chemotherapy induced nausea and vomiting 018 07/02/2018 Overview: --compazine, Ativan and zofran prn. JOSE ENRIQUE (acute kidney injury) 06/16/20182017 Overview: Acute increase of sCr to 1.5 on 06/16, but now down to 1.03 ( at baseline). will monitor at this time, if sCr rises, then will stop lisinopril Bilateral lower extremity edema 06/13/2018 07/17/2018 Overview: --uses 40 lasix po at home as needed --diurese as needed. 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 Leg DVT (deep venous thromboembolism), acute, le ft 01/02/2018 11/25/2019 Overview: --acute DVT gastrocnemius found 12/13/2017 --continue apixaban till platelets <50K, last dose 06/21/2018 Adjustment insomnia 12/07/2017 05/14/2018 Class 1 obesity due to exces s calories with serious comorbidity and body mass index (BMI) of 34.0 to 34.9 in adult 06/26/2017 11/25/2019 Vitamin D deficiency 12/31/2014 06/27/2017 Acute bronchitis with chroni c obstructive pulmonary disease (COPD) 12/30/2014 06/26/2017 Venous insufficiency, peripheral 01/06/2014 11/25/2019 Esophagitis, unspecified 09/25/2012 014 Special screening for malignant neoplasms, colon 09/06/2012 06/13/2018 Tobacco abuse 12/27/2011 10/01/2012 documented as of this encounter (statuses as of 07/04/2022) [facility] History of Past illness Narrative* Problem Noted Date Resolved Date Chest pressure 10/23/2019 11/25/2019 Wheezing 10/23/2019 11/25/2019 Shortness of breath 10/22/2019 11/25/2019 Overview: Admitted with shortness of breath and fluid retention due to comp,ex history, admitted for management and work-up to determine cardiac causes versus primary pulmonary. He was diuresed with IV lasix, and lost 13 pounds in 3 days. Feels much better able to walk in the hallway few laps. Pulmonary team consulted work-up in progress Cardiac testing including echo, PET negative. Nuclear test to rule out amyloid - neg for cardiac Amyloid. Discussion with pulmonary team: No need for RHC this admission. Recommend repeat echo in 3 to 4 weeks (when euvolemic) and if RVSP is >50 mmhg, will need a right heart cath (pulmonary arterial HTN) Per HF team: Would start spironolactone 12.5, on discharge arrange f/u with Dr. Rosenbaum's office for electrolyte monitoring Can stop carvedilol given no indication (ischemia ruled out, and HFrEF ruled out) - Would not continue imdur on discharge given no indication - Lisinopril can be restarted as an outpatient as needed for HTN if renal function is stable Dr. Mcpherson recommends to resume home dose of 40mg daily. Annie Corrales, RN ORTHOTIC TECHNICIAN.[employer] Acute on chronic systolic CHF (congestive heart failure) 10/04/2019 11/25/2019 Fall 07/17/2018 11/25/2019 Difficulty coping 06/20/2018 06/26/2018 Overview: --social work following for supportive counseling --Zyprexa added for recent depressed mood --mood has improved, gabapentin was DC'd as well daughter recalled patient taking this in the past and having severe depression and suicidal ideation (added to allergies) Hyperkalemia 06/18/2018 2018 Overview: K 5.2, will d/c lisinopril Chemotherapy induced nausea and vomiting 018 07/02/2018 Overview: --compazine, Ativan and zofran prn. JOSE ENRIQUE (acute kidney injury) 06/16/20182017 Overview: Acute increase of sCr to 1.5 on 06/16, but now down to 1.03 ( at baseline). will monitor at this time, if sCr rises, then will stop lisinopril Bilateral lower extremity edema 06/13/2018 07/17/2018 Overview: --uses 40 lasix po at home as needed --diurese as needed. 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 Leg DVT (deep venous thromboembolism), acute, le ft 01/02/2018 11/25/2019 Overview: --acute DVT gastrocnemius found 12/13/2017 --continue apixaban till platelets <50K, last dose 06/21/2018 Adjustment insomnia 12/07/2017 05/14/2018 Class 1 obesity due to exces s calories with serious comorbidity and body mass index (BMI) of 34.0 to 34.9 in adult 06/26/2017 11/25/2019 Vitamin D deficiency 12/31/2014 06/27/2017 Acute bronchitis with chroni c obstructive pulmonary disease (COPD) 12/30/2014 06/26/2017 Venous insufficiency, peripheral 01/06/2014 11/25/2019 Esophagitis, unspecified 09/25/2012 014 Special screening for malignant neoplasms, colon 09/06/2012 06/13/2018 Tobacco abuse 12/27/2011 10/01/2012 documented as of this encounter (statuses as of 07/04/2022) [facility] History of Past illness Narrative* Problem Noted Date Resolved Date Chest pressure 10/23/2019 11/25/2019 Wheezing 10/23/2019 11/25/2019 Shortness of breath 10/22/2019 11/25/2019 Overview: Admitted with shortness of breath and fluid retention due to comp,ex history, admitted for management and work-up to determine cardiac causes versus primary pulmonary. He was diuresed with IV lasix, and lost 13 pounds in 3 days. Feels much better able to walk in the hallway few laps. Pulmonary team consulted work-up in progress Cardiac testing including echo, PET negative. Nuclear test to rule out amyloid - neg for cardiac Amyloid. Discussion with pulmonary team: No need for RHC this admission. Recommend repeat echo in 3 to 4 weeks (when euvolemic) and if RVSP is >50 mmhg, will need a right heart cath (pulmonary arterial HTN) Per HF team: Would start spironolactone 12.5, on discharge arrange f/u with Dr. Rosenbaum's office for electrolyte monitoring Can stop carvedilol given no indication (ischemia ruled out, and HFrEF ruled out) - Would not continue imdur on discharge given no indication - Lisinopril can be restarted as an outpatient as needed for HTN if renal function is stable Dr. Mcpherson recommends to resume home dose of 40mg daily. Annie Corrales RN ORTHOTIC TECHNICIAN.[employer] Acute on chronic systolic CHF (congestive heart failure) 10/04/2019 11/25/2019 Fall 07/17/2018 11/25/2019 Difficulty coping 06/20/2018 06/26/2018 Overview: --social work following for supportive counseling --Zyprexa added for recent depressed mood --mood has improved, gabapentin was DC'd as well daughter recalled patient taking this in the past and having severe depression and suicidal ideation (added to allergies) Hyperkalemia 06/18/2018 2018 Overview: K 5.2, will d/c lisinopril Chemotherapy induced nausea and vomiting 018 07/02/2018 Overview: --compazine, Ativan and zofran prn. JOSE ENRIQUE (acute kidney injury) 06/16/20182017 Overview: Acute increase of sCr to 1.5 on 06/16, but now down to 1.03 ( at baseline). will monitor at this time, if sCr rises, then will stop lisinopril Bilateral lower extremity edema 06/13/2018 07/17/2018 Overview: --uses 40 lasix po at home as needed --diurese as needed. 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 Leg DVT (deep venous thromboembolism), acute, le ft 01/02/2018 11/25/2019 Overview: --acute DVT gastrocnemius found 12/13/2017 --continue apixaban till platelets <50K, last dose 06/21/2018 Adjustment insomnia 12/07/2017 05/14/2018 Class 1 obesity due to exces s calories with serious comorbidity and body mass index (BMI) of 34.0 to 34.9 in adult 06/26/2017 11/25/2019 Vitamin D deficiency 12/31/2014 06/27/2017 Acute bronchitis with chroni c obstructive pulmonary disease (COPD) 12/30/2014 06/26/2017 Venous insufficiency, peripheral 01/06/2014 11/25/2019 Esophagitis, unspecified 09/25/2012 014 Special screening for malignant neoplasms, colon 09/06/2012 06/13/2018 Tobacco abuse 12/27/2011 10/01/2012 documented as of this encounter (statuses as of 07/28/2022) [facility] History of Past illness Narrative* Problem Noted Date Resolved Date Chest pressure 10/23/2019 11/25/2019 Wheezing 10/23/2019 11/25/2019 Shortness of breath 10/22/2019 11/25/2019 Overview: Admitted with shortness of breath and fluid retention due to comp,ex history, admitted for management and work-up to determine cardiac causes versus primary pulmonary. He was diuresed with IV lasix, and lost 13 pounds in 3 days. Feels much better able to walk in the hallway few laps. Pulmonary team consulted work-up in progress Cardiac testing including echo, PET negative. Nuclear test to rule out amyloid - neg for cardiac Amyloid. Discussion with pulmonary team: No need for RHC this admission. Recommend repeat echo in 3 to 4 weeks (when euvolemic) and if RVSP is >50 mmhg, will need a right heart cath (pulmonary arterial HTN) Per HF team: Would start spironolactone 12.5, on discharge arrange f/u with Dr. Rosenbaum's office for electrolyte monitoring Can stop carvedilol given no indication (ischemia ruled out, and HFrEF ruled out) - Would not continue imdur on discharge given no indication - Lisinopril can be restarted as an outpatient as needed for HTN if renal function is stable Dr. Mcpherson recommends to resume home dose of 40mg daily. Annie Corrales, RN ORTHOTIC TECHNICIAN.[employer] Acute on chronic systolic CHF (congestive heart failure) 10/04/2019 11/25/2019 Fall 07/17/2018 11/25/2019 Difficulty coping 06/20/2018 06/26/2018 Overview: --social work following for supportive counseling --Zyprexa added for recent depressed mood --mood has improved, gabapentin was DC'd as well daughter recalled patient taking this in the past and having severe depression and suicidal ideation (added to allergies) Hyperkalemia 06/18/2018 2018 Overview: K 5.2, will d/c lisinopril Chemotherapy induced nausea and vomiting 018 07/02/2018 Overview: --compazine, Ativan and zofran prn. JOSE ENRIQUE (acute kidney injury) 06/16/20182017 Overview: Acute increase of sCr to 1.5 on 06/16, but now down to 1.03 ( at baseline). will monitor at this time, if sCr rises, then will stop lisinopril Bilateral lower extremity edema 06/13/2018 07/17/2018 Overview: --uses 40 lasix po at home as needed --diurese as needed. 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 Leg DVT (deep venous thromboembolism), acute, le ft 01/02/2018 11/25/2019 Overview: --acute DVT gastrocnemius found 12/13/2017 --continue apixaban till platelets <50K, last dose 06/21/2018 Adjustment insomnia 12/07/2017 05/14/2018 Class 1 obesity due to exces s calories with serious comorbidity and body mass index (BMI) of 34.0 to 34.9 in adult 06/26/2017 11/25/2019 Vitamin D deficiency 12/31/2014 06/27/2017 Acute bronchitis with chroni c obstructive pulmonary disease (COPD) 12/30/2014 06/26/2017 Venous insufficiency, peripheral 01/06/2014 11/25/2019 Esophagitis, unspecified 09/25/2012 014 Special screening for malignant neoplasms, colon 09/06/2012 06/13/2018 Tobacco abuse 12/27/2011 10/01/2012 documented as of this encounter (statuses as of 08/08/2022) [facility] History of Past illness Narrative* Problem Noted Date Resolved Date Chest pressure 10/23/2019 11/25/2019 Wheezing 10/23/2019 11/25/2019 Shortness of breath 10/22/2019 11/25/2019 Overview: Admitted with shortness of breath and fluid retention due to comp,ex history, admitted for management and work-up to determine cardiac causes versus primary pulmonary. He was diuresed with IV lasix, and lost 13 pounds in 3 days. Feels much better able to walk in the hallway few laps. Pulmonary team consulted work-up in progress Cardiac testing including echo, PET negative. Nuclear test to rule out amyloid - neg for cardiac Amyloid. Discussion with pulmonary team: No need for RHC this admission. Recommend repeat echo in 3 to 4 weeks (when euvolemic) and if RVSP is >50 mmhg, will need a right heart cath (pulmonary arterial HTN) Per HF team: Would start spironolactone 12.5, on discharge arrange f/u with Dr. Rosenbaum's office for electrolyte monitoring Can stop carvedilol given no indication (ischemia ruled out, and HFrEF ruled out) - Would not continue imdur on discharge given no indication - Lisinopril can be restarted as an outpatient as needed for HTN if renal function is stable Dr. Mcpherson recommends to resume home dose of 40mg daily. Annie Corrales RN ORTHOTIC TECHNICIAN.[employer] Acute on chronic systolic CHF (congestive heart failure) 10/04/2019 11/25/2019 Fall 07/17/2018 11/25/2019 Difficulty coping 06/20/2018 06/26/2018 Overview: --social work following for supportive counseling --Zyprexa added for recent depressed mood --mood has improved, gabapentin was DC'd as well daughter recalled patient taking this in the past and having severe depression and suicidal ideation (added to allergies) Hyperkalemia 06/18/2018 2018 Overview: K 5.2, will d/c lisinopril Chemotherapy induced nausea and vomiting 018 07/02/2018 Overview: --compazine, Ativan and zofran prn. JOSE ENRIQUE (acute kidney injury) 06/16/20182017 Overview: Acute increase of sCr to 1.5 on 06/16, but now down to 1.03 ( at baseline). will monitor at this time, if sCr rises, then will stop lisinopril Bilateral lower extremity edema 06/13/2018 07/17/2018 Overview: --uses 40 lasix po at home as needed --diurese as needed. 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 Leg DVT (deep venous thromboembolism), acute, le ft 01/02/2018 11/25/2019 Overview: --acute DVT gastrocnemius found 12/13/2017 --continue apixaban till platelets <50K, last dose 06/21/2018 Adjustment insomnia 12/07/2017 05/14/2018 Class 1 obesity due to exces s calories with serious comorbidity and body mass index (BMI) of 34.0 to 34.9 in adult 06/26/2017 11/25/2019 Vitamin D deficiency 12/31/2014 06/27/2017 Acute bronchitis with chroni c obstructive pulmonary disease (COPD) 12/30/2014 06/26/2017 Venous insufficiency, peripheral 01/06/2014 11/25/2019 Esophagitis, unspecified 09/25/2012 014 Special screening for malignant neoplasms, colon 09/06/2012 06/13/2018 Tobacco abuse 12/27/2011 10/01/2012 documented as of this encounter (statuses as of 08/23/2022) [facility]-2020 History of Past illness Narrative* Problem Noted Date Resolved Date Chest pressure 10/23/2019 11/25/2019 Wheezing 10/23/2019 11/25/2019 Shortness of breath 10/22/2019 11/25/2019 Overview: Admitted with shortness of breath and fluid retention due to comp,ex history, admitted for management and work-up to determine cardiac causes versus primary pulmonary. He was diuresed with IV lasix, and lost 13 pounds in 3 days. Feels much better able to walk in the hallway few laps. Pulmonary team consulted work-up in progress Cardiac testing including echo, PET negative. Nuclear test to rule out amyloid - neg for cardiac Amyloid. Discussion with pulmonary team: No need for RHC this admission. Recommend repeat echo in 3 to 4 weeks (when euvolemic) and if RVSP is >50 mmhg, will need a right heart cath (pulmonary arterial HTN) Per HF team: Would start spironolactone 12.5, on discharge arrange f/u with Dr. Rosenbaum's office for electrolyte monitoring Can stop carvedilol given no indication (ischemia ruled out, and HFrEF ruled out) - Would not continue imdur on discharge given no indication - Lisinopril can be restarted as an outpatient as needed for HTN if renal function is stable Dr. Mcpherson recommends to resume home dose of 40mg daily. Annie Corrales, RN ORTHOTIC TECHNICIAN.[employer] Acute on chronic systolic CHF (congestive heart failure) 10/04/2019 11/25/2019 Fall 07/17/2018 11/25/2019 Difficulty coping 06/20/2018 06/26/2018 Overview: --social work following for supportive counseling --Zyprexa added for recent depressed mood --mood has improved, gabapentin was DC'd as well daughter recalled patient taking this in the past and having severe depression and suicidal ideation (added to allergies) Hyperkalemia 06/18/2018 2018 Overview: K 5.2, will d/c lisinopril Chemotherapy induced nausea and vomiting 018 07/02/2018 Overview: --compazine, Ativan and zofran prn. JOSE ENRIQUE (acute kidney injury) 06/16/20182017 Overview: Acute increase of sCr to 1.5 on 06/16, but now down to 1.03 ( at baseline). will monitor at this time, if sCr rises, then will stop lisinopril Bilateral lower extremity edema 06/13/2018 07/17/2018 Overview: --uses 40 lasix po at home as needed --diurese as needed. 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 Leg DVT (deep venous thromboembolism), acute, le ft 01/02/2018 11/25/2019 Overview: --acute DVT gastrocnemius found 12/13/2017 --continue apixaban till platelets <50K, last dose 06/21/2018 Adjustment insomnia 12/07/2017 05/14/2018 Class 1 obesity due to exces s calories with serious comorbidity and body mass index (BMI) of 34.0 to 34.9 in adult 06/26/2017 11/25/2019 Vitamin D deficiency 12/31/2014 06/27/2017 Acute bronchitis with chroni c obstructive pulmonary disease (COPD) 12/30/2014 06/26/2017 Venous insufficiency, peripheral 01/06/2014 11/25/2019 Esophagitis, unspecified 09/25/2012 014 Special screening for malignant neoplasms, colon 09/06/2012 06/13/2018 Tobacco abuse 12/27/2011 10/01/2012 documented as of this encounter (statuses as of 08/24/2022) [facility]2020 History of Past illness Narrative* Problem Noted Date Resolved Date Chest pressure 10/23/2019 11/25/2019 Wheezing 10/23/2019 11/25/2019 Shortness of breath 10/22/2019 11/25/2019 Overview: Admitted with shortness of breath and fluid retention due to comp,ex history, admitted for management and work-up to determine cardiac causes versus primary pulmonary. He was diuresed with IV lasix, and lost 13 pounds in 3 days. Feels much better able to walk in the hallway few laps. Pulmonary team consulted work-up in progress Cardiac testing including echo, PET negative. Nuclear test to rule out amyloid - neg for cardiac Amyloid. Discussion with pulmonary team: No need for RHC this admission. Recommend repeat echo in 3 to 4 weeks (when euvolemic) and if RVSP is >50 mmhg, will need a right heart cath (pulmonary arterial HTN) Per HF team: Would start spironolactone 12.5, on discharge arrange f/u with Dr. Rosenbaum's office for electrolyte monitoring Can stop carvedilol given no indication (ischemia ruled out, and HFrEF ruled out) - Would not continue imdur on discharge given no indication - Lisinopril can be restarted as an outpatient as needed for HTN if renal function is stable Dr. Mcpherson recommends to resume home dose of 40mg daily. Annie Corrales RN ORTHOTIC TECHNICIAN.[employer] Acute on chronic systolic CHF (congestive heart failure) 10/04/2019 11/25/2019 Fall 07/17/2018 11/25/2019 Difficulty coping 06/20/2018 06/26/2018 Overview: --social work following for supportive counseling --Zyprexa added for recent depressed mood --mood has improved, gabapentin was DC'd as well daughter recalled patient taking this in the past and having severe depression and suicidal ideation (added to allergies) Hyperkalemia 06/18/2018 2018 Overview: K 5.2, will d/c lisinopril Chemotherapy induced nausea and vomiting 018 07/02/2018 Overview: --compazine, Ativan and zofran prn. JOSE ENRIQUE (acute kidney injury) 06/16/20182017 Overview: Acute increase of sCr to 1.5 on 06/16, but now down to 1.03 ( at baseline). will monitor at this time, if sCr rises, then will stop lisinopril Bilateral lower extremity edema 06/13/2018 07/17/2018 Overview: --uses 40 lasix po at home as needed --diurese as needed. 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 Leg DVT (deep venous thromboembolism), acute, le ft 01/02/2018 11/25/2019 Overview: --acute DVT gastrocnemius found 12/13/2017 --continue apixaban till platelets <50K, last dose 06/21/2018 Adjustment insomnia 12/07/2017 05/14/2018 Class 1 obesity due to exces s calories with serious comorbidity and body mass index (BMI) of 34.0 to 34.9 in adult 06/26/2017 11/25/2019 Vitamin D deficiency 12/31/2014 06/27/2017 Acute bronchitis with chroni c obstructive pulmonary disease (COPD) 12/30/2014 06/26/2017 Venous insufficiency, peripheral 01/06/2014 11/25/2019 Esophagitis, unspecified 09/25/2012 014 Special screening for malignant neoplasms, colon 09/06/2012 06/13/2018 Tobacco abuse 12/27/2011 10/01/2012 documented as of this encounter (statuses as of 08/29/2022) [facility]2020 History of Past illness Narrative* Problem Noted Date Resolved Date Chest pressure 10/23/2019 11/25/2019 Wheezing 10/23/2019 11/25/2019 Shortness of breath 10/22/2019 11/25/2019 Overview: Admitted with shortness of breath and fluid retention due to comp,ex history, admitted for management and work-up to determine cardiac causes versus primary pulmonary. He was diuresed with IV lasix, and lost 13 pounds in 3 days. Feels much better able to walk in the hallway few laps. Pulmonary team consulted work-up in progress Cardiac testing including echo, PET negative. Nuclear test to rule out amyloid - neg for cardiac Amyloid. Discussion with pulmonary team: No need for RHC this admission. Recommend repeat echo in 3 to 4 weeks (when euvolemic) and if RVSP is >50 mmhg, will need a right heart cath (pulmonary arterial HTN) Per HF team: Would start spironolactone 12.5, on discharge arrange f/u with Dr. Rosenbaum's office for electrolyte monitoring Can stop carvedilol given no indication (ischemia ruled out, and HFrEF ruled out) - Would not continue imdur on discharge given no indication - Lisinopril can be restarted as an outpatient as needed for HTN if renal function is stable Dr. Mcpherson recommends to resume home dose of 40mg daily. Annie Corrales RN ORTHOTIC TECHNICIAN.[employer] Acute on chronic systolic CHF (congestive heart failure) 10/04/2019 11/25/2019 Fall 07/17/2018 11/25/2019 Difficulty coping 06/20/2018 06/26/2018 Overview: --social work following for supportive counseling --Zyprexa added for recent depressed mood --mood has improved, gabapentin was DC'd as well daughter recalled patient taking this in the past and having severe depression and suicidal ideation (added to allergies) Hyperkalemia 06/18/2018 2018 Overview: K 5.2, will d/c lisinopril Chemotherapy induced nausea and vomiting 018 07/02/2018 Overview: --compazine, Ativan and zofran prn. JOSE ENRIQUE (acute kidney injury) 06/16/20182017 Overview: Acute increase of sCr to 1.5 on 06/16, but now down to 1.03 ( at baseline). will monitor at this time, if sCr rises, then will stop lisinopril Bilateral lower extremity edema 06/13/2018 07/17/2018 Overview: --uses 40 lasix po at home as needed --diurese as needed. 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 Leg DVT (deep venous thromboembolism), acute, le ft 01/02/2018 11/25/2019 Overview: --acute DVT gastrocnemius found 12/13/2017 --continue apixaban till platelets <50K, last dose 06/21/2018 Adjustment insomnia 12/07/2017 05/14/2018 Class 1 obesity due to exces s calories with serious comorbidity and body mass index (BMI) of 34.0 to 34.9 in adult 06/26/2017 11/25/2019 Vitamin D deficiency 12/31/2014 06/27/2017 Acute bronchitis with chroni c obstructive pulmonary disease (COPD) 12/30/2014 06/26/2017 Venous insufficiency, peripheral 01/06/2014 11/25/2019 Esophagitis, unspecified 09/25/2012 014 Special screening for malignant neoplasms, colon 09/06/2012 06/13/2018 Tobacco abuse 12/27/2011 10/01/2012 documented as of this encounter (statuses as of 08/29/2022) [facility] History of Past illness Narrative* Problem Noted Date Resolved Date Chest pressure 10/23/2019 11/25/2019 Wheezing 10/23/2019 11/25/2019 Shortness of breath 10/22/2019 11/25/2019 Overview: Admitted with shortness of breath and fluid retention due to comp,ex history, admitted for management and work-up to determine cardiac causes versus primary pulmonary. He was diuresed with IV lasix, and lost 13 pounds in 3 days. Feels much better able to walk in the hallway few laps. Pulmonary team consulted work-up in progress Cardiac testing including echo, PET negative. Nuclear test to rule out amyloid - neg for cardiac Amyloid. Discussion with pulmonary team: No need for RHC this admission. Recommend repeat echo in 3 to 4 weeks (when euvolemic) and if RVSP is >50 mmhg, will need a right heart cath (pulmonary arterial HTN) Per HF team: Would start spironolactone 12.5, on discharge arrange f/u with Dr. Rosenbaum's office for electrolyte monitoring Can stop carvedilol given no indication (ischemia ruled out, and HFrEF ruled out) - Would not continue imdur on discharge given no indication - Lisinopril can be restarted as an outpatient as needed for HTN if renal function is stable Dr. Mcpherson recommends to resume home dose of 40mg daily. Annie Corrales RN ORTHOTIC TECHNICIAN.[employer] Acute on chronic systolic CHF (congestive heart failure) 10/04/2019 11/25/2019 Fall 07/17/2018 11/25/2019 Difficulty coping 06/20/2018 06/26/2018 Overview: --social work following for supportive counseling --Zyprexa added for recent depressed mood --mood has improved, gabapentin was DC'd as well daughter recalled patient taking this in the past and having severe depression and suicidal ideation (added to allergies) Hyperkalemia 06/18/2018 2018 Overview: K 5.2, will d/c lisinopril Chemotherapy induced nausea and vomiting 018 07/02/2018 Overview: --compazine, Ativan and zofran prn. JOSE ENRIQUE (acute kidney injury) 06/16/20182017 Overview: Acute increase of sCr to 1.5 on 06/16, but now down to 1.03 ( at baseline). will monitor at this time, if sCr rises, then will stop lisinopril Bilateral lower extremity edema 06/13/2018 07/17/2018 Overview: --uses 40 lasix po at home as needed --diurese as needed. 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 Leg DVT (deep venous thromboembolism), acute, le ft 01/02/2018 11/25/2019 Overview: --acute DVT gastrocnemius found 12/13/2017 --continue apixaban till platelets <50K, last dose 06/21/2018 Adjustment insomnia 12/07/2017 05/14/2018 Class 1 obesity due to exces s calories with serious comorbidity and body mass index (BMI) of 34.0 to 34.9 in adult 06/26/2017 11/25/2019 Vitamin D deficiency 12/31/2014 06/27/2017 Acute bronchitis with chroni c obstructive pulmonary disease (COPD) 12/30/2014 06/26/2017 Venous insufficiency, peripheral 01/06/2014 11/25/2019 Esophagitis, unspecified 09/25/2012 014 Special screening for malignant neoplasms, colon 09/06/2012 06/13/2018 Tobacco abuse 12/27/2011 10/01/2012 documented as of this encounter (statuses as of 08/30/2022) [facility]2020 History of Past illness Narrative* Problem Noted Date Resolved Date Chest pressure 10/23/2019 11/25/2019 Wheezing 10/23/2019 11/25/2019 Shortness of breath 10/22/2019 11/25/2019 Overview: Admitted with shortness of breath and fluid retention due to comp,ex history, admitted for management and work-up to determine cardiac causes versus primary pulmonary. He was diuresed with IV lasix, and lost 13 pounds in 3 days. Feels much better able to walk in the hallway few laps. Pulmonary team consulted work-up in progress Cardiac testing including echo, PET negative. Nuclear test to rule out amyloid - neg for cardiac Amyloid. Discussion with pulmonary team: No need for RHC this admission. Recommend repeat echo in 3 to 4 weeks (when euvolemic) and if RVSP is >50 mmhg, will need a right heart cath (pulmonary arterial HTN) Per HF team: Would start spironolactone 12.5, on discharge arrange f/u with Dr. Rosenbaum's office for electrolyte monitoring Can stop carvedilol given no indication (ischemia ruled out, and HFrEF ruled out) - Would not continue imdur on discharge given no indication - Lisinopril can be restarted as an outpatient as needed for HTN if renal function is stable Dr. Mcpherson recommends to resume home dose of 40mg daily. Annie Corrales, RN ORTHOTIC TECHNICIAN.[employer] Acute on chronic systolic CHF (congestive heart failure) 10/04/2019 11/25/2019 Fall 07/17/2018 11/25/2019 Difficulty coping 06/20/2018 06/26/2018 Overview: --social work following for supportive counseling --Zyprexa added for recent depressed mood --mood has improved, gabapentin was DC'd as well daughter recalled patient taking this in the past and having severe depression and suicidal ideation (added to allergies) Hyperkalemia 06/18/2018 2018 Overview: K 5.2, will d/c lisinopril Chemotherapy induced nausea and vomiting 018 07/02/2018 Overview: --compazine, Ativan and zofran prn. JOSE ENRIQUE (acute kidney injury) 06/16/20182017 Overview: Acute increase of sCr to 1.5 on 06/16, but now down to 1.03 ( at baseline). will monitor at this time, if sCr rises, then will stop lisinopril Bilateral lower extremity edema 06/13/2018 07/17/2018 Overview: --uses 40 lasix po at home as needed --diurese as needed. 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 Leg DVT (deep venous thromboembolism), acute, le ft 01/02/2018 11/25/2019 Overview: --acute DVT gastrocnemius found 12/13/2017 --continue apixaban till platelets <50K, last dose 06/21/2018 Adjustment insomnia 12/07/2017 05/14/2018 Class 1 obesity due to exces s calories with serious comorbidity and body mass index (BMI) of 34.0 to 34.9 in adult 06/26/2017 11/25/2019 Vitamin D deficiency 12/31/2014 06/27/2017 Acute bronchitis with chroni c obstructive pulmonary disease (COPD) 12/30/2014 06/26/2017 Venous insufficiency, peripheral 01/06/2014 11/25/2019 Esophagitis, unspecified 09/25/2012 014 Special screening for malignant neoplasms, colon 09/06/2012 06/13/2018 Tobacco abuse 12/27/2011 10/01/2012 documented as of this encounter (statuses as of 09/05/2022) [facility]2020 History of Past illness Narrative* Problem Noted Date Resolved Date Chest pressure 10/23/2019 11/25/2019 Wheezing 10/23/2019 11/25/2019 Shortness of breath 10/22/2019 11/25/2019 Overview: Admitted with shortness of breath and fluid retention due to comp,ex history, admitted for management and work-up to determine cardiac causes versus primary pulmonary. He was diuresed with IV lasix, and lost 13 pounds in 3 days. Feels much better able to walk in the hallway few laps. Pulmonary team consulted work-up in progress Cardiac testing including echo, PET negative. Nuclear test to rule out amyloid - neg for cardiac Amyloid. Discussion with pulmonary team: No need for RHC this admission. Recommend repeat echo in 3 to 4 weeks (when euvolemic) and if RVSP is >50 mmhg, will need a right heart cath (pulmonary arterial HTN) Per HF team: Would start spironolactone 12.5, on discharge arrange f/u with Dr. Rosenbaum's office for electrolyte monitoring Can stop carvedilol given no indication (ischemia ruled out, and HFrEF ruled out) - Would not continue imdur on discharge given no indication - Lisinopril can be restarted as an outpatient as needed for HTN if renal function is stable Dr. Mcpherson recommends to resume home dose of 40mg daily. Annie Corrales RN ORTHOTIC TECHNICIAN.[employer] Acute on chronic systolic CHF (congestive heart failure) 10/04/2019 11/25/2019 Fall 07/17/2018 11/25/2019 Difficulty coping 06/20/2018 06/26/2018 Overview: --social work following for supportive counseling --Zyprexa added for recent depressed mood --mood has improved, gabapentin was DC'd as well daughter recalled patient taking this in the past and having severe depression and suicidal ideation (added to allergies) Hyperkalemia 06/18/2018 2018 Overview: K 5.2, will d/c lisinopril Chemotherapy induced nausea and vomiting 018 07/02/2018 Overview: --compazine, Ativan and zofran prn. JOSE ENRIQUE (acute kidney injury) 06/16/20182017 Overview: Acute increase of sCr to 1.5 on 06/16, but now down to 1.03 ( at baseline). will monitor at this time, if sCr rises, then will stop lisinopril Bilateral lower extremity edema 06/13/2018 07/17/2018 Overview: --uses 40 lasix po at home as needed --diurese as needed. 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 Leg DVT (deep venous thromboembolism), acute, le ft 01/02/2018 11/25/2019 Overview: --acute DVT gastrocnemius found 12/13/2017 --continue apixaban till platelets <50K, last dose 06/21/2018 Adjustment insomnia 12/07/2017 05/14/2018 Class 1 obesity due to exces s calories with serious comorbidity and body mass index (BMI) of 34.0 to 34.9 in adult 06/26/2017 11/25/2019 Vitamin D deficiency 12/31/2014 06/27/2017 Acute bronchitis with chroni c obstructive pulmonary disease (COPD) 12/30/2014 06/26/2017 Venous insufficiency, peripheral 01/06/2014 11/25/2019 Esophagitis, unspecified 09/25/2012 014 Special screening for malignant neoplasms, colon 09/06/2012 06/13/2018 Tobacco abuse 12/27/2011 10/01/2012 documented as of this encounter (statuses as of 09/05/2022) [facility] History of Past illness Narrative* Problem Noted Date Resolved Date Chest pressure 10/23/2019 11/25/2019 Wheezing 10/23/2019 11/25/2019 Shortness of breath 10/22/2019 11/25/2019 Overview: Admitted with shortness of breath and fluid retention due to comp,ex history, admitted for management and work-up to determine cardiac causes versus primary pulmonary. He was diuresed with IV lasix, and lost 13 pounds in 3 days. Feels much better able to walk in the hallway few laps. Pulmonary team consulted work-up in progress Cardiac testing including echo, PET negative. Nuclear test to rule out amyloid - neg for cardiac Amyloid. Discussion with pulmonary team: No need for RHC this admission. Recommend repeat echo in 3 to 4 weeks (when euvolemic) and if RVSP is >50 mmhg, will need a right heart cath (pulmonary arterial HTN) Per HF team: Would start spironolactone 12.5, on discharge arrange f/u with Dr. Rosenbaum's office for electrolyte monitoring Can stop carvedilol given no indication (ischemia ruled out, and HFrEF ruled out) - Would not continue imdur on discharge given no indication - Lisinopril can be restarted as an outpatient as needed for HTN if renal function is stable Dr. Mcpherson recommends to resume home dose of 40mg daily. Annie Corrales RN ORTHOTIC TECHNICIAN.[employer] Acute on chronic systolic CHF (congestive heart failure) 10/04/2019 11/25/2019 Fall 07/17/2018 11/25/2019 Difficulty coping 06/20/2018 06/26/2018 Overview: --social work following for supportive counseling --Zyprexa added for recent depressed mood --mood has improved, gabapentin was DC'd as well daughter recalled patient taking this in the past and having severe depression and suicidal ideation (added to allergies) Hyperkalemia 06/18/2018 2018 Overview: K 5.2, will d/c lisinopril Chemotherapy induced nausea and vomiting 018 07/02/2018 Overview: --compazine, Ativan and zofran prn. JOSE ENRIQUE (acute kidney injury) 06/16/20182017 Overview: Acute increase of sCr to 1.5 on 06/16, but now down to 1.03 ( at baseline). will monitor at this time, if sCr rises, then will stop lisinopril Bilateral lower extremity edema 06/13/2018 07/17/2018 Overview: --uses 40 lasix po at home as needed --diurese as needed. 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 Leg DVT (deep venous thromboembolism), acute, le ft 01/02/2018 11/25/2019 Overview: --acute DVT gastrocnemius found 12/13/2017 --continue apixaban till platelets <50K, last dose 06/21/2018 Adjustment insomnia 12/07/2017 05/14/2018 Class 1 obesity due to exces s calories with serious comorbidity and body mass index (BMI) of 34.0 to 34.9 in adult 06/26/2017 11/25/2019 Vitamin D deficiency 12/31/2014 06/27/2017 Acute bronchitis with chroni c obstructive pulmonary disease (COPD) 12/30/2014 06/26/2017 Venous insufficiency, peripheral 01/06/2014 11/25/2019 Esophagitis, unspecified 09/25/2012 014 Special screening for malignant neoplasms, colon 09/06/2012 06/13/2018 Tobacco abuse 12/27/2011 10/01/2012 documented as of this encounter (statuses as of 09/05/2022) [facility] History of Past illness Narrative* Problem Noted Date Resolved Date Chest pressure 10/23/2019 11/25/2019 Wheezing 10/23/2019 11/25/2019 Shortness of breath 10/22/2019 11/25/2019 Overview: Admitted with shortness of breath and fluid retention due to comp,ex history, admitted for management and work-up to determine cardiac causes versus primary pulmonary. He was diuresed with IV lasix, and lost 13 pounds in 3 days. Feels much better able to walk in the hallway few laps. Pulmonary team consulted work-up in progress Cardiac testing including echo, PET negative. Nuclear test to rule out amyloid - neg for cardiac Amyloid. Discussion with pulmonary team: No need for RHC this admission. Recommend repeat echo in 3 to 4 weeks (when euvolemic) and if RVSP is >50 mmhg, will need a right heart cath (pulmonary arterial HTN) Per HF team: Would start spironolactone 12.5, on discharge arrange f/u with Dr. Rosenbaum's office for electrolyte monitoring Can stop carvedilol given no indication (ischemia ruled out, and HFrEF ruled out) - Would not continue imdur on discharge given no indication - Lisinopril can be restarted as an outpatient as needed for HTN if renal function is stable Dr. Mcpherson recommends to resume home dose of 40mg daily. Annie Corrales RN ORTHOTIC TECHNICIAN.[employer] Acute on chronic systolic CHF (congestive heart failure) 10/04/2019 11/25/2019 Fall 07/17/2018 11/25/2019 Difficulty coping 06/20/2018 06/26/2018 Overview: --social work following for supportive counseling --Zyprexa added for recent depressed mood --mood has improved, gabapentin was DC'd as well daughter recalled patient taking this in the past and having severe depression and suicidal ideation (added to allergies) Hyperkalemia 06/18/2018 2018 Overview: K 5.2, will d/c lisinopril Chemotherapy induced nausea and vomiting 018 07/02/2018 Overview: --compazine, Ativan and zofran prn. JOSE ENRIQUE (acute kidney injury) 06/16/20182017 Overview: Acute increase of sCr to 1.5 on 06/16, but now down to 1.03 ( at baseline). will monitor at this time, if sCr rises, then will stop lisinopril Bilateral lower extremity edema 06/13/2018 07/17/2018 Overview: --uses 40 lasix po at home as needed --diurese as needed. 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 Leg DVT (deep venous thromboembolism), acute, le ft 01/02/2018 11/25/2019 Overview: --acute DVT gastrocnemius found 12/13/2017 --continue apixaban till platelets <50K, last dose 06/21/2018 Adjustment insomnia 12/07/2017 05/14/2018 Class 1 obesity due to exces s calories with serious comorbidity and body mass index (BMI) of 34.0 to 34.9 in adult 06/26/2017 11/25/2019 Vitamin D deficiency 12/31/2014 06/27/2017 Acute bronchitis with chroni c obstructive pulmonary disease (COPD) 12/30/2014 06/26/2017 Venous insufficiency, peripheral 01/06/2014 11/25/2019 Esophagitis, unspecified 09/25/2012 014 Special screening for malignant neoplasms, colon 09/06/2012 06/13/2018 Tobacco abuse 12/27/2011 10/01/2012 documented as of this encounter (statuses as of 09/18/2022) [facility]02-[facility]-2020 History of Past illness Narrative* Problem Noted Date Resolved Date Chest pressure 10/23/2019 11/25/2019 Wheezing 10/23/2019 11/25/2019 Shortness of breath 10/22/2019 11/25/2019 Overview: Admitted with shortness of breath and fluid retention due to comp,ex history, admitted for management and work-up to determine cardiac causes versus primary pulmonary. He was diuresed with IV lasix, and lost 13 pounds in 3 days. Feels much better able to walk in the hallway few laps. Pulmonary team consulted work-up in progress Cardiac testing including echo, PET negative. Nuclear test to rule out amyloid - neg for cardiac Amyloid. Discussion with pulmonary team: No need for RHC this admission. Recommend repeat echo in 3 to 4 weeks (when euvolemic) and if RVSP is >50 mmhg, will need a right heart cath (pulmonary arterial HTN) Per HF team: Would start spironolactone 12.5, on discharge arrange f/u with Dr. Rosenbaum's office for electrolyte monitoring Can stop carvedilol given no indication (ischemia ruled out, and HFrEF ruled out) - Would not continue imdur on discharge given no indication - Lisinopril can be restarted as an outpatient as needed for HTN if renal function is stable Dr. Mcpherson recommends to resume home dose of 40mg daily. Annie Corrales, RN ORTHOTIC TECHNICIAN.[employer] Acute on chronic systolic CHF (congestive heart failure) 10/04/2019 11/25/2019 Fall 07/17/2018 11/25/2019 Difficulty coping 06/20/2018 06/26/2018 Overview: --social work following for supportive counseling --Zyprexa added for recent depressed mood --mood has improved, gabapentin was DC'd as well daughter recalled patient taking this in the past and having severe depression and suicidal ideation (added to allergies) Hyperkalemia 06/18/2018 2018 Overview: K 5.2, will d/c lisinopril Chemotherapy induced nausea and vomiting 018 07/02/2018 Overview: --compazine, Ativan and zofran prn. JOSE ENRIQUE (acute kidney injury) 06/16/20182017 Overview: Acute increase of sCr to 1.5 on 06/16, but now down to 1.03 ( at baseline). will monitor at this time, if sCr rises, then will stop lisinopril Bilateral lower extremity edema 06/13/2018 07/17/2018 Overview: --uses 40 lasix po at home as needed --diurese as needed. 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 Leg DVT (deep venous thromboembolism), acute, le ft 01/02/2018 11/25/2019 Overview: --acute DVT gastrocnemius found 12/13/2017 --continue apixaban till platelets <50K, last dose 06/21/2018 Adjustment insomnia 12/07/2017 05/14/2018 Class 1 obesity due to exces s calories with serious comorbidity and body mass index (BMI) of 34.0 to 34.9 in adult 06/26/2017 11/25/2019 Vitamin D deficiency 12/31/2014 06/27/2017 Acute bronchitis with chroni c obstructive pulmonary disease (COPD) 12/30/2014 06/26/2017 Venous insufficiency, peripheral 01/06/2014 11/25/2019 Esophagitis, unspecified 09/25/2012 014 Special screening for malignant neoplasms, colon 09/06/2012 06/13/2018 Tobacco abuse 12/27/2011 10/01/2012 documented as of this encounter (statuses as of 09/22/2022) [facility]-2020 History of Past illness Narrative* Problem Noted Date Resolved Date Chest pressure 10/23/2019 11/25/2019 Wheezing 10/23/2019 11/25/2019 Shortness of breath 10/22/2019 11/25/2019 Overview: Admitted with shortness of breath and fluid retention due to comp,ex history, admitted for management and work-up to determine cardiac causes versus primary pulmonary. He was diuresed with IV lasix, and lost 13 pounds in 3 days. Feels much better able to walk in the hallway few laps. Pulmonary team consulted work-up in progress Cardiac testing including echo, PET negative. Nuclear test to rule out amyloid - neg for cardiac Amyloid. Discussion with pulmonary team: No need for RHC this admission. Recommend repeat echo in 3 to 4 weeks (when euvolemic) and if RVSP is >50 mmhg, will need a right heart cath (pulmonary arterial HTN) Per HF team: Would start spironolactone 12.5, on discharge arrange f/u with Dr. Rosenbaum's office for electrolyte monitoring Can stop carvedilol given no indication (ischemia ruled out, and HFrEF ruled out) - Would not continue imdur on discharge given no indication - Lisinopril can be restarted as an outpatient as needed for HTN if renal function is stable Dr. Mcpherson recommends to resume home dose of 40mg daily. Annie Corrales RN ORTHOTIC TECHNICIAN.[employer] Acute on chronic systolic CHF (congestive heart failure) 10/04/2019 11/25/2019 Fall 07/17/2018 11/25/2019 Difficulty coping 06/20/2018 06/26/2018 Overview: --social work following for supportive counseling --Zyprexa added for recent depressed mood --mood has improved, gabapentin was DC'd as well daughter recalled patient taking this in the past and having severe depression and suicidal ideation (added to allergies) Hyperkalemia 06/18/2018 2018 Overview: K 5.2, will d/c lisinopril Chemotherapy induced nausea and vomiting 018 07/02/2018 Overview: --compazine, Ativan and zofran prn. JOSE ENRIQUE (acute kidney injury) 06/16/20182017 Overview: Acute increase of sCr to 1.5 on 06/16, but now down to 1.03 ( at baseline). will monitor at this time, if sCr rises, then will stop lisinopril Bilateral lower extremity edema 06/13/2018 07/17/2018 Overview: --uses 40 lasix po at home as needed --diurese as needed. 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 Leg DVT (deep venous thromboembolism), acute, le ft 01/02/2018 11/25/2019 Overview: --acute DVT gastrocnemius found 12/13/2017 --continue apixaban till platelets <50K, last dose 06/21/2018 Adjustment insomnia 12/07/2017 05/14/2018 Class 1 obesity due to exces s calories with serious comorbidity and body mass index (BMI) of 34.0 to 34.9 in adult 06/26/2017 11/25/2019 Vitamin D deficiency 12/31/2014 06/27/2017 Acute bronchitis with chroni c obstructive pulmonary disease (COPD) 12/30/2014 06/26/2017 Venous insufficiency, peripheral 01/06/2014 11/25/2019 Esophagitis, unspecified 09/25/2012 014 Special screening for malignant neoplasms, colon 09/06/2012 06/13/2018 Tobacco abuse 12/27/2011 10/01/2012 documented as of this encounter (statuses as of 09/23/2022) [facility]2020 History of Past illness Narrative* Problem Noted Date Resolved Date Chest pressure 10/23/2019 11/25/2019 Wheezing 10/23/2019 11/25/2019 Shortness of breath 10/22/2019 11/25/2019 Overview: Admitted with shortness of breath and fluid retention due to comp,ex history, admitted for management and work-up to determine cardiac causes versus primary pulmonary. He was diuresed with IV lasix, and lost 13 pounds in 3 days. Feels much better able to walk in the hallway few laps. Pulmonary team consulted work-up in progress Cardiac testing including echo, PET negative. Nuclear test to rule out amyloid - neg for cardiac Amyloid. Discussion with pulmonary team: No need for RHC this admission. Recommend repeat echo in 3 to 4 weeks (when euvolemic) and if RVSP is >50 mmhg, will need a right heart cath (pulmonary arterial HTN) Per HF team: Would start spironolactone 12.5, on discharge arrange f/u with Dr. Rosenbaum's office for electrolyte monitoring Can stop carvedilol given no indication (ischemia ruled out, and HFrEF ruled out) - Would not continue imdur on discharge given no indication - Lisinopril can be restarted as an outpatient as needed for HTN if renal function is stable Dr. Mcpherson recommends to resume home dose of 40mg daily. Annie Corrales RN ORTHOTIC TECHNICIAN.[employer] Acute on chronic systolic CHF (congestive heart failure) 10/04/2019 11/25/2019 Fall 07/17/2018 11/25/2019 Difficulty coping 06/20/2018 06/26/2018 Overview: --social work following for supportive counseling --Zyprexa added for recent depressed mood --mood has improved, gabapentin was DC'd as well daughter recalled patient taking this in the past and having severe depression and suicidal ideation (added to allergies) Hyperkalemia 06/18/2018 2018 Overview: K 5.2, will d/c lisinopril Chemotherapy induced nausea and vomiting 018 07/02/2018 Overview: --compazine, Ativan and zofran prn. JOSE ENRIQUE (acute kidney injury) 06/16/20182017 Overview: Acute increase of sCr to 1.5 on 06/16, but now down to 1.03 ( at baseline). will monitor at this time, if sCr rises, then will stop lisinopril Bilateral lower extremity edema 06/13/2018 07/17/2018 Overview: --uses 40 lasix po at home as needed --diurese as needed. 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 Leg DVT (deep venous thromboembolism), acute, le ft 01/02/2018 11/25/2019 Overview: --acute DVT gastrocnemius found 12/13/2017 --continue apixaban till platelets <50K, last dose 06/21/2018 Adjustment insomnia 12/07/2017 05/14/2018 Class 1 obesity due to exces s calories with serious comorbidity and body mass index (BMI) of 34.0 to 34.9 in adult 06/26/2017 11/25/2019 Vitamin D deficiency 12/31/2014 06/27/2017 Acute bronchitis with chroni c obstructive pulmonary disease (COPD) 12/30/2014 06/26/2017 Venous insufficiency, peripheral 01/06/2014 11/25/2019 Esophagitis, unspecified 09/25/2012 014 Special screening for malignant neoplasms, colon 09/06/2012 06/13/2018 Tobacco abuse 12/27/2011 10/01/2012 documented as of this encounter (statuses as of 09/30/2022) [facility]2020 History of Past illness Narrative* Problem Noted Date Resolved Date Chest pressure 10/23/2019 11/25/2019 Wheezing 10/23/2019 11/25/2019 Shortness of breath 10/22/2019 11/25/2019 Overview: Admitted with shortness of breath and fluid retention due to comp,ex history, admitted for management and work-up to determine cardiac causes versus primary pulmonary. He was diuresed with IV lasix, and lost 13 pounds in 3 days. Feels much better able to walk in the hallway few laps. Pulmonary team consulted work-up in progress Cardiac testing including echo, PET negative. Nuclear test to rule out amyloid - neg for cardiac Amyloid. Discussion with pulmonary team: No need for RHC this admission. Recommend repeat echo in 3 to 4 weeks (when euvolemic) and if RVSP is >50 mmhg, will need a right heart cath (pulmonary arterial HTN) Per HF team: Would start spironolactone 12.5, on discharge arrange f/u with Dr. Rosenbaum's office for electrolyte monitoring Can stop carvedilol given no indication (ischemia ruled out, and HFrEF ruled out) - Would not continue imdur on discharge given no indication - Lisinopril can be restarted as an outpatient as needed for HTN if renal function is stable Dr. Mcpherson recommends to resume home dose of 40mg daily. Annie Corrales RN ORTHOTIC TECHNICIAN.[employer] Acute on chronic systolic CHF (congestive heart failure) 10/04/2019 11/25/2019 Fall 07/17/2018 11/25/2019 Difficulty coping 06/20/2018 06/26/2018 Overview: --social work following for supportive counseling --Zyprexa added for recent depressed mood --mood has improved, gabapentin was DC'd as well daughter recalled patient taking this in the past and having severe depression and suicidal ideation (added to allergies) Hyperkalemia 06/18/2018 2018 Overview: K 5.2, will d/c lisinopril Chemotherapy induced nausea and vomiting 018 07/02/2018 Overview: --compazine, Ativan and zofran prn. JOSE ENRIQUE (acute kidney injury) 06/16/20182017 Overview: Acute increase of sCr to 1.5 on 06/16, but now down to 1.03 ( at baseline). will monitor at this time, if sCr rises, then will stop lisinopril Bilateral lower extremity edema 06/13/2018 07/17/2018 Overview: --uses 40 lasix po at home as needed --diurese as needed. 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 Leg DVT (deep venous thromboembolism), acute, le ft 01/02/2018 11/25/2019 Overview: --acute DVT gastrocnemius found 12/13/2017 --continue apixaban till platelets <50K, last dose 06/21/2018 Adjustment insomnia 12/07/2017 05/14/2018 Class 1 obesity due to exces s calories with serious comorbidity and body mass index (BMI) of 34.0 to 34.9 in adult 06/26/2017 11/25/2019 Vitamin D deficiency 12/31/2014 06/27/2017 Acute bronchitis with chroni c obstructive pulmonary disease (COPD) 12/30/2014 06/26/2017 Venous insufficiency, peripheral 01/06/2014 11/25/2019 Esophagitis, unspecified 09/25/2012 014 Special screening for malignant neoplasms, colon 09/06/2012 06/13/2018 Tobacco abuse 12/27/2011 10/01/2012 documented as of this encounter (statuses as of 09/30/2022) [facility]2020 History of Past illness Narrative* Problem Noted Date Resolved Date Chest pressure 10/23/2019 11/25/2019 Wheezing 10/23/2019 11/25/2019 Shortness of breath 10/22/2019 11/25/2019 Overview: Admitted with shortness of breath and fluid retention due to comp,ex history, admitted for management and work-up to determine cardiac causes versus primary pulmonary. He was diuresed with IV lasix, and lost 13 pounds in 3 days. Feels much better able to walk in the hallway few laps. Pulmonary team consulted work-up in progress Cardiac testing including echo, PET negative. Nuclear test to rule out amyloid - neg for cardiac Amyloid. Discussion with pulmonary team: No need for RHC this admission. Recommend repeat echo in 3 to 4 weeks (when euvolemic) and if RVSP is >50 mmhg, will need a right heart cath (pulmonary arterial HTN) Per HF team: Would start spironolactone 12.5, on discharge arrange f/u with Dr. Rosenbaum's office for electrolyte monitoring Can stop carvedilol given no indication (ischemia ruled out, and HFrEF ruled out) - Would not continue imdur on discharge given no indication - Lisinopril can be restarted as an outpatient as needed for HTN if renal function is stable Dr. Mcpherson recommends to resume home dose of 40mg daily. Annie Corrales RN ORTHOTIC TECHNICIAN.[employer] Acute on chronic systolic CHF (congestive heart failure) 10/04/2019 11/25/2019 Fall 07/17/2018 11/25/2019 Difficulty coping 06/20/2018 06/26/2018 Overview: --social work following for supportive counseling --Zyprexa added for recent depressed mood --mood has improved, gabapentin was DC'd as well daughter recalled patient taking this in the past and having severe depression and suicidal ideation (added to allergies) Hyperkalemia 06/18/2018 2018 Overview: K 5.2, will d/c lisinopril Chemotherapy induced nausea and vomiting 018 07/02/2018 Overview: --compazine, Ativan and zofran prn. JOSE ENRIQUE (acute kidney injury) 06/16/20182017 Overview: Acute increase of sCr to 1.5 on 06/16, but now down to 1.03 ( at baseline). will monitor at this time, if sCr rises, then will stop lisinopril Bilateral lower extremity edema 06/13/2018 07/17/2018 Overview: --uses 40 lasix po at home as needed --diurese as needed. 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 Leg DVT (deep venous thromboembolism), acute, le ft 01/02/2018 11/25/2019 Overview: --acute DVT gastrocnemius found 12/13/2017 --continue apixaban till platelets <50K, last dose 06/21/2018 Adjustment insomnia 12/07/2017 05/14/2018 Class 1 obesity due to exces s calories with serious comorbidity and body mass index (BMI) of 34.0 to 34.9 in adult 06/26/2017 11/25/2019 Vitamin D deficiency 12/31/2014 06/27/2017 Acute bronchitis with chroni c obstructive pulmonary disease (COPD) 12/30/2014 06/26/2017 Venous insufficiency, peripheral 01/06/2014 11/25/2019 Esophagitis, unspecified 09/25/2012 014 Special screening for malignant neoplasms, colon 09/06/2012 06/13/2018 Tobacco abuse 12/27/2011 10/01/2012 documented as of this encounter (statuses as of 10/01/2022) [facility]2020 History of Past illness Narrative* Problem Noted Date Resolved Date Chest pressure 10/23/2019 11/25/2019 Wheezing 10/23/2019 11/25/2019 Shortness of breath 10/22/2019 11/25/2019 Overview: Admitted with shortness of breath and fluid retention due to comp,ex history, admitted for management and work-up to determine cardiac causes versus primary pulmonary. He was diuresed with IV lasix, and lost 13 pounds in 3 days. Feels much better able to walk in the hallway few laps. Pulmonary team consulted work-up in progress Cardiac testing including echo, PET negative. Nuclear test to rule out amyloid - neg for cardiac Amyloid. Discussion with pulmonary team: No need for RHC this admission. Recommend repeat echo in 3 to 4 weeks (when euvolemic) and if RVSP is >50 mmhg, will need a right heart cath (pulmonary arterial HTN) Per HF team: Would start spironolactone 12.5, on discharge arrange f/u with Dr. Rosenbaum's office for electrolyte monitoring Can stop carvedilol given no indication (ischemia ruled out, and HFrEF ruled out) - Would not continue imdur on discharge given no indication - Lisinopril can be restarted as an outpatient as needed for HTN if renal function is stable Dr. Mcpherson recommends to resume home dose of 40mg daily. Annie Corrales RN ORTHOTIC TECHNICIAN.[employer] Acute on chronic systolic CHF (congestive heart failure) 10/04/2019 11/25/2019 Fall 07/17/2018 11/25/2019 Difficulty coping 06/20/2018 06/26/2018 Overview: --social work following for supportive counseling --Zyprexa added for recent depressed mood --mood has improved, gabapentin was DC'd as well daughter recalled patient taking this in the past and having severe depression and suicidal ideation (added to allergies) Hyperkalemia 06/18/2018 2018 Overview: K 5.2, will d/c lisinopril Chemotherapy induced nausea and vomiting 018 07/02/2018 Overview: --compazine, Ativan and zofran prn. JOSE ENRIQUE (acute kidney injury) 06/16/20182017 Overview: Acute increase of sCr to 1.5 on 06/16, but now down to 1.03 ( at baseline). will monitor at this time, if sCr rises, then will stop lisinopril Bilateral lower extremity edema 06/13/2018 07/17/2018 Overview: --uses 40 lasix po at home as needed --diurese as needed. 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 Leg DVT (deep venous thromboembolism), acute, le ft 01/02/2018 11/25/2019 Overview: --acute DVT gastrocnemius found 12/13/2017 --continue apixaban till platelets <50K, last dose 06/21/2018 Adjustment insomnia 12/07/2017 05/14/2018 Class 1 obesity due to exces s calories with serious comorbidity and body mass index (BMI) of 34.0 to 34.9 in adult 06/26/2017 11/25/2019 Vitamin D deficiency 12/31/2014 06/27/2017 Acute bronchitis with chroni c obstructive pulmonary disease (COPD) 12/30/2014 06/26/2017 Venous insufficiency, peripheral 01/06/2014 11/25/2019 Esophagitis, unspecified 09/25/2012 04/21/2 014 Special screening for malignant neoplasms, colon 09/06/2012 06/13/2018 Tobacco abuse 12/27/2011 10/01/2012 documented as of this encounter (statuses as of 10/06/2022) [facility] History of Past illness Narrative* Problem Noted Date Resolved Date Chest pressure 10/23/2019 11/25/2019 Wheezing 10/23/2019 11/25/2019 Shortness of breath 10/22/2019 11/25/2019 Overview: Admitted with shortness of breath and fluid retention due to comp,ex history, admitted for management and work-up to determine cardiac causes versus primary pulmonary. He was diuresed with IV lasix, and lost 13 pounds in 3 days. Feels much better able to walk in the hallway few laps. Pulmonary team consulted work-up in progress Cardiac testing including echo, PET negative. Nuclear test to rule out amyloid - neg for cardiac Amyloid. Discussion with pulmonary team: No need for RHC this admission. Recommend repeat echo in 3 to 4 weeks (when euvolemic) and if RVSP is >50 mmhg, will need a right heart cath (pulmonary arterial HTN) Per HF team: Would start spironolactone 12.5, on discharge arrange f/u with Dr. Rosenbaum's office for electrolyte monitoring Can stop carvedilol given no indication (ischemia ruled out, and HFrEF ruled out) - Would not continue imdur on discharge given no indication - Lisinopril can be restarted as an outpatient as needed for HTN if renal function is stable Dr. Mcpherson recommends to resume home dose of 40mg daily. Annie Corrales RN ORTHOTIC TECHNICIAN.[employer] Acute on chronic systolic CHF (congestive heart failure) 10/04/2019 11/25/2019 Fall 07/17/2018 11/25/2019 Difficulty coping 06/20/2018 06/26/2018 Overview: --social work following for supportive counseling --Zyprexa added for recent depressed mood --mood has improved, gabapentin was DC'd as well daughter recalled patient taking this in the past and having severe depression and suicidal ideation (added to allergies) Hyperkalemia 06/18/2018 2018 Overview: K 5.2, will d/c lisinopril Chemotherapy induced nausea and vomiting 018 07/02/2018 Overview: --compazine, Ativan and zofran prn. JOSE ENRIQUE (acute kidney injury) 06/16/20182017 Overview: Acute increase of sCr to 1.5 on 06/16, but now down to 1.03 ( at baseline). will monitor at this time, if sCr rises, then will stop lisinopril Bilateral lower extremity edema 06/13/2018 07/17/2018 Overview: --uses 40 lasix po at home as needed --diurese as needed. 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 Leg DVT (deep venous thromboembolism), acute, le ft 01/02/2018 11/25/2019 Overview: --acute DVT gastrocnemius found 12/13/2017 --continue apixaban till platelets <50K, last dose 06/21/2018 Adjustment insomnia 12/07/2017 05/14/2018 Class 1 obesity due to exces s calories with serious comorbidity and body mass index (BMI) of 34.0 to 34.9 in adult 06/26/2017 11/25/2019 Vitamin D deficiency 12/31/2014 06/27/2017 Acute bronchitis with chroni c obstructive pulmonary disease (COPD) 12/30/2014 06/26/2017 Venous insufficiency, peripheral 01/06/2014 11/25/2019 Esophagitis, unspecified 09/25/2012 014 Special screening for malignant neoplasms, colon 09/06/2012 06/13/2018 Tobacco abuse 12/27/2011 10/01/2012 documented as of this encounter (statuses as of 10/13/2022) [facility] History of Past illness Narrative* Problem Noted Date Resolved Date Chest pressure 10/23/2019 11/25/2019 Wheezing 10/23/2019 11/25/2019 Shortness of breath 10/22/2019 11/25/2019 Overview: Admitted with shortness of breath and fluid retention due to comp,ex history, admitted for management and work-up to determine cardiac causes versus primary pulmonary. He was diuresed with IV lasix, and lost 13 pounds in 3 days. Feels much better able to walk in the hallway few laps. Pulmonary team consulted work-up in progress Cardiac testing including echo, PET negative. Nuclear test to rule out amyloid - neg for cardiac Amyloid. Discussion with pulmonary team: No need for RHC this admission. Recommend repeat echo in 3 to 4 weeks (when euvolemic) and if RVSP is >50 mmhg, will need a right heart cath (pulmonary arterial HTN) Per HF team: Would start spironolactone 12.5, on discharge arrange f/u with Dr. Rosenbaum's office for electrolyte monitoring Can stop carvedilol given no indication (ischemia ruled out, and HFrEF ruled out) - Would not continue imdur on discharge given no indication - Lisinopril can be restarted as an outpatient as needed for HTN if renal function is stable Dr. Mcpherson recommends to resume home dose of 40mg daily. Annie Corrales, RN ORTHOTIC TECHNICIAN.[employer] Acute on chronic systolic CHF (congestive heart failure) 10/04/2019 11/25/2019 Fall 07/17/2018 11/25/2019 Difficulty coping 06/20/2018 06/26/2018 Overview: --social work following for supportive counseling --Zyprexa added for recent depressed mood --mood has improved, gabapentin was DC'd as well daughter recalled patient taking this in the past and having severe depression and suicidal ideation (added to allergies) Hyperkalemia 06/18/2018 2018 Overview: K 5.2, will d/c lisinopril Chemotherapy induced nausea and vomiting 018 07/02/2018 Overview: --compazine, Ativan and zofran prn. JOSE ENRIQUE (acute kidney injury) 06/16/20182017 Overview: Acute increase of sCr to 1.5 on 06/16, but now down to 1.03 ( at baseline). will monitor at this time, if sCr rises, then will stop lisinopril Bilateral lower extremity edema 06/13/2018 07/17/2018 Overview: --uses 40 lasix po at home as needed --diurese as needed. 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 Leg DVT (deep venous thromboembolism), acute, le ft 01/02/2018 11/25/2019 Overview: --acute DVT gastrocnemius found 12/13/2017 --continue apixaban till platelets <50K, last dose 06/21/2018 Adjustment insomnia 12/07/2017 05/14/2018 Class 1 obesity due to exces s calories with serious comorbidity and body mass index (BMI) of 34.0 to 34.9 in adult 06/26/2017 11/25/2019 Vitamin D deficiency 12/31/2014 06/27/2017 Acute bronchitis with chroni c obstructive pulmonary disease (COPD) 12/30/2014 06/26/2017 Venous insufficiency, peripheral 01/06/2014 11/25/2019 Esophagitis, unspecified 09/25/2012 014 Special screening for malignant neoplasms, colon 09/06/2012 06/13/2018 Tobacco abuse 12/27/2011 10/01/2012 documented as of this encounter (statuses as of 10/13/2022) [facility]-2020 History of Past illness Narrative* Problem Noted Date Resolved Date Chest pressure 10/23/2019 11/25/2019 Wheezing 10/23/2019 11/25/2019 Shortness of breath 10/22/2019 11/25/2019 Overview: Admitted with shortness of breath and fluid retention due to comp,ex history, admitted for management and work-up to determine cardiac causes versus primary pulmonary. He was diuresed with IV lasix, and lost 13 pounds in 3 days. Feels much better able to walk in the hallway few laps. Pulmonary team consulted work-up in progress Cardiac testing including echo, PET negative. Nuclear test to rule out amyloid - neg for cardiac Amyloid. Discussion with pulmonary team: No need for RHC this admission. Recommend repeat echo in 3 to 4 weeks (when euvolemic) and if RVSP is >50 mmhg, will need a right heart cath (pulmonary arterial HTN) Per HF team: Would start spironolactone 12.5, on discharge arrange f/u with Dr. Rosenbaum's office for electrolyte monitoring Can stop carvedilol given no indication (ischemia ruled out, and HFrEF ruled out) - Would not continue imdur on discharge given no indication - Lisinopril can be restarted as an outpatient as needed for HTN if renal function is stable Dr. Mcpherson recommends to resume home dose of 40mg daily. Annie Corrales, RN ORTHOTIC TECHNICIAN.[employer] Acute on chronic systolic CHF (congestive heart failure) 10/04/2019 11/25/2019 Fall 07/17/2018 11/25/2019 Difficulty coping 06/20/2018 06/26/2018 Overview: --social work following for supportive counseling --Zyprexa added for recent depressed mood --mood has improved, gabapentin was DC'd as well daughter recalled patient taking this in the past and having severe depression and suicidal ideation (added to allergies) Hyperkalemia 06/18/2018 2018 Overview: K 5.2, will d/c lisinopril Chemotherapy induced nausea and vomiting 018 07/02/2018 Overview: --compazine, Ativan and zofran prn. JOSE ENRIQUE (acute kidney injury) 06/16/20182017 Overview: Acute increase of sCr to 1.5 on 06/16, but now down to 1.03 ( at baseline). will monitor at this time, if sCr rises, then will stop lisinopril Bilateral lower extremity edema 06/13/2018 07/17/2018 Overview: --uses 40 lasix po at home as needed --diurese as needed. 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 Leg DVT (deep venous thromboembolism), acute, le ft 01/02/2018 11/25/2019 Overview: --acute DVT gastrocnemius found 12/13/2017 --continue apixaban till platelets <50K, last dose 06/21/2018 Adjustment insomnia 12/07/2017 05/14/2018 Class 1 obesity due to exces s calories with serious comorbidity and body mass index (BMI) of 34.0 to 34.9 in adult 06/26/2017 11/25/2019 Vitamin D deficiency 12/31/2014 06/27/2017 Acute bronchitis with chroni c obstructive pulmonary disease (COPD) 12/30/2014 06/26/2017 Venous insufficiency, peripheral 01/06/2014 11/25/2019 Esophagitis, unspecified 09/25/2012 014 Special screening for malignant neoplasms, colon 09/06/2012 06/13/2018 Tobacco abuse 12/27/2011 10/01/2012 documented as of this encounter (statuses as of 10/22/2022) [facility]2020 History of Past illness Narrative* Problem Noted Date Resolved Date Chest pressure 10/23/2019 11/25/2019 Wheezing 10/23/2019 11/25/2019 Shortness of breath 10/22/2019 11/25/2019 Overview: Admitted with shortness of breath and fluid retention due to comp,ex history, admitted for management and work-up to determine cardiac causes versus primary pulmonary. He was diuresed with IV lasix, and lost 13 pounds in 3 days. Feels much better able to walk in the hallway few laps. Pulmonary team consulted work-up in progress Cardiac testing including echo, PET negative. Nuclear test to rule out amyloid - neg for cardiac Amyloid. Discussion with pulmonary team: No need for RHC this admission. Recommend repeat echo in 3 to 4 weeks (when euvolemic) and if RVSP is >50 mmhg, will need a right heart cath (pulmonary arterial HTN) Per HF team: Would start spironolactone 12.5, on discharge arrange f/u with Dr. Rosenbaum's office for electrolyte monitoring Can stop carvedilol given no indication (ischemia ruled out, and HFrEF ruled out) - Would not continue imdur on discharge given no indication - Lisinopril can be restarted as an outpatient as needed for HTN if renal function is stable Dr. Mcpherson recommends to resume home dose of 40mg daily. Annie I Corrales, RN ORTHOTIC TECHNICIAN.[employer] Acute on chronic systolic CHF (congestive heart failure) 10/04/2019 11/25/2019 Fall 07/17/2018 11/25/2019 Difficulty coping 06/20/2018 06/26/2018 Overview: --social work following for supportive counseling --Zyprexa added for recent depressed mood --mood has improved, gabapentin was DC'd as well daughter recalled patient taking this in the past and having severe depression and suicidal ideation (added to allergies) Hyperkalemia 06/18/2018 2018 Overview: K 5.2, will d/c lisinopril Chemotherapy induced nausea and vomiting 018 07/02/2018 Overview: --compazine, Ativan and zofran prn. JOSE ENRIQUE (acute kidney injury) 06/16/20182017 Overview: Acute increase of sCr to 1.5 on 06/16, but now down to 1.03 ( at baseline). will monitor at this time, if sCr rises, then will stop lisinopril Bilateral lower extremity edema 06/13/2018 07/17/2018 Overview: --uses 40 lasix po at home as needed --diurese as needed. 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 Leg DVT (deep venous thromboembolism), acute, le ft 01/02/2018 11/25/2019 Overview: --acute DVT gastrocnemius found 12/13/2017 --continue apixaban till platelets <50K, last dose 06/21/2018 Adjustment insomnia 12/07/2017 05/14/2018 Class 1 obesity due to exces s calories with serious comorbidity and body mass index (BMI) of 34.0 to 34.9 in adult 06/26/2017 11/25/2019 Vitamin D deficiency 12/31/2014 06/27/2017 Acute bronchitis with chroni c obstructive pulmonary disease (COPD) 12/30/2014 06/26/2017 Venous insufficiency, peripheral 01/06/2014 11/25/2019 Esophagitis, unspecified 09/25/2012 014 Special screening for malignant neoplasms, colon 09/06/2012 06/13/2018 Tobacco abuse 12/27/2011 10/01/2012 documented as of this encounter (statuses as of 10/24/2022) [facility]2020 History of Past illness Narrative* Problem Noted Date Resolved Date Chest pressure 10/23/2019 11/25/2019 Wheezing 10/23/2019 11/25/2019 Shortness of breath 10/22/2019 11/25/2019 Overview: Admitted with shortness of breath and fluid retention due to comp,ex history, admitted for management and work-up to determine cardiac causes versus primary pulmonary. He was diuresed with IV lasix, and lost 13 pounds in 3 days. Feels much better able to walk in the hallway few laps. Pulmonary team consulted work-up in progress Cardiac testing including echo, PET negative. Nuclear test to rule out amyloid - neg for cardiac Amyloid. Discussion with pulmonary team: No need for RHC this admission. Recommend repeat echo in 3 to 4 weeks (when euvolemic) and if RVSP is >50 mmhg, will need a right heart cath (pulmonary arterial HTN) Per HF team: Would start spironolactone 12.5, on discharge arrange f/u with Dr. Rosenbaum's office for electrolyte monitoring Can stop carvedilol given no indication (ischemia ruled out, and HFrEF ruled out) - Would not continue imdur on discharge given no indication - Lisinopril can be restarted as an outpatient as needed for HTN if renal function is stable Dr. Mcpherson recommends to resume home dose of 40mg daily. Annie Corrales RN ORTHOTIC TECHNICIAN.[employer] Acute on chronic systolic CHF (congestive heart failure) 10/04/2019 11/25/2019 Fall 07/17/2018 11/25/2019 Difficulty coping 06/20/2018 06/26/2018 Overview: --social work following for supportive counseling --Zyprexa added for recent depressed mood --mood has improved, gabapentin was DC'd as well daughter recalled patient taking this in the past and having severe depression and suicidal ideation (added to allergies) Hyperkalemia 06/18/2018 2018 Overview: K 5.2, will d/c lisinopril Chemotherapy induced nausea and vomiting 018 07/02/2018 Overview: --compazine, Ativan and zofran prn. JOSE ENRIQUE (acute kidney injury) 06/16/20182017 Overview: Acute increase of sCr to 1.5 on 06/16, but now down to 1.03 ( at baseline). will monitor at this time, if sCr rises, then will stop lisinopril Bilateral lower extremity edema 06/13/2018 07/17/2018 Overview: --uses 40 lasix po at home as needed --diurese as needed. 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 Leg DVT (deep venous thromboembolism), acute, le ft 01/02/2018 11/25/2019 Overview: --acute DVT gastrocnemius found 12/13/2017 --continue apixaban till platelets <50K, last dose 06/21/2018 Adjustment insomnia 12/07/2017 05/14/2018 Class 1 obesity due to exces s calories with serious comorbidity and body mass index (BMI) of 34.0 to 34.9 in adult 06/26/2017 11/25/2019 Vitamin D deficiency 12/31/2014 06/27/2017 Acute bronchitis with chroni c obstructive pulmonary disease (COPD) 12/30/2014 06/26/2017 Venous insufficiency, peripheral 01/06/2014 11/25/2019 Esophagitis, unspecified 09/25/2012 014 Special screening for malignant neoplasms, colon 09/06/2012 06/13/2018 Tobacco abuse 12/27/2011 10/01/2012 documented as of this encounter (statuses as of 10/28/2022) [facility] History of Past illness Narrative* Problem Noted Date Resolved Date Chest pressure 10/23/2019 11/25/2019 Wheezing 10/23/2019 11/25/2019 Shortness of breath 10/22/2019 11/25/2019 Overview: Admitted with shortness of breath and fluid retention due to comp,ex history, admitted for management and work-up to determine cardiac causes versus primary pulmonary. He was diuresed with IV lasix, and lost 13 pounds in 3 days. Feels much better able to walk in the hallway few laps. Pulmonary team consulted work-up in progress Cardiac testing including echo, PET negative. Nuclear test to rule out amyloid - neg for cardiac Amyloid. Discussion with pulmonary team: No need for RHC this admission. Recommend repeat echo in 3 to 4 weeks (when euvolemic) and if RVSP is >50 mmhg, will need a right heart cath (pulmonary arterial HTN) Per HF team: Would start spironolactone 12.5, on discharge arrange f/u with Dr. Rosenbaum's office for electrolyte monitoring Can stop carvedilol given no indication (ischemia ruled out, and HFrEF ruled out) - Would not continue imdur on discharge given no indication - Lisinopril can be restarted as an outpatient as needed for HTN if renal function is stable Dr. Mcpherson recommends to resume home dose of 40mg daily. Annie Corrales RN ORTHOTIC TECHNICIAN.[employer] Acute on chronic systolic CHF (congestive heart failure) 10/04/2019 11/25/2019 Fall 07/17/2018 11/25/2019 Difficulty coping 06/20/2018 06/26/2018 Overview: --social work following for supportive counseling --Zyprexa added for recent depressed mood --mood has improved, gabapentin was DC'd as well daughter recalled patient taking this in the past and having severe depression and suicidal ideation (added to allergies) Hyperkalemia 06/18/2018 2018 Overview: K 5.2, will d/c lisinopril Chemotherapy induced nausea and vomiting 018 07/02/2018 Overview: --compazine, Ativan and zofran prn. JOSE ENRIQUE (acute kidney injury) 06/16/20182017 Overview: Acute increase of sCr to 1.5 on 06/16, but now down to 1.03 ( at baseline). will monitor at this time, if sCr rises, then will stop lisinopril Bilateral lower extremity edema 06/13/2018 07/17/2018 Overview: --uses 40 lasix po at home as needed --diurese as needed. 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 Leg DVT (deep venous thromboembolism), acute, le ft 01/02/2018 11/25/2019 Overview: --acute DVT gastrocnemius found 12/13/2017 --continue apixaban till platelets <50K, last dose 06/21/2018 Adjustment insomnia 12/07/2017 05/14/2018 Class 1 obesity due to exces s calories with serious comorbidity and body mass index (BMI) of 34.0 to 34.9 in adult 06/26/2017 11/25/2019 Vitamin D deficiency 12/31/2014 06/27/2017 Acute bronchitis with chroni c obstructive pulmonary disease (COPD) 12/30/2014 06/26/2017 Venous insufficiency, peripheral 01/06/2014 11/25/2019 Esophagitis, unspecified 09/25/2012 014 Special screening for malignant neoplasms, colon 09/06/2012 06/13/2018 Tobacco abuse 12/27/2011 10/01/2012 documented as of this encounter (statuses as of 10/28/2022) [facility]2020 History of Past illness Narrative* Problem Noted Date Resolved Date Chest pressure 10/23/2019 11/25/2019 Wheezing 10/23/2019 11/25/2019 Shortness of breath 10/22/2019 11/25/2019 Overview: Admitted with shortness of breath and fluid retention due to comp,ex history, admitted for management and work-up to determine cardiac causes versus primary pulmonary. He was diuresed with IV lasix, and lost 13 pounds in 3 days. Feels much better able to walk in the hallway few laps. Pulmonary team consulted work-up in progress Cardiac testing including echo, PET negative. Nuclear test to rule out amyloid - neg for cardiac Amyloid. Discussion with pulmonary team: No need for RHC this admission. Recommend repeat echo in 3 to 4 weeks (when euvolemic) and if RVSP is >50 mmhg, will need a right heart cath (pulmonary arterial HTN) Per HF team: Would start spironolactone 12.5, on discharge arrange f/u with Dr. Rosenbaum's office for electrolyte monitoring Can stop carvedilol given no indication (ischemia ruled out, and HFrEF ruled out) - Would not continue imdur on discharge given no indication - Lisinopril can be restarted as an outpatient as needed for HTN if renal function is stable Dr. Mcpherson recommends to resume home dose of 40mg daily. Annie Corrales, RN ORTHOTIC TECHNICIAN.[employer] Acute on chronic systolic CHF (congestive heart failure) 10/04/2019 11/25/2019 Fall 07/17/2018 11/25/2019 Difficulty coping 06/20/2018 06/26/2018 Overview: --social work following for supportive counseling --Zyprexa added for recent depressed mood --mood has improved, gabapentin was DC'd as well daughter recalled patient taking this in the past and having severe depression and suicidal ideation (added to allergies) Hyperkalemia 06/18/2018 2018 Overview: K 5.2, will d/c lisinopril Chemotherapy induced nausea and vomiting 018 07/02/2018 Overview: --compazine, Ativan and zofran prn. JOSE ENRIQUE (acute kidney injury) 06/16/20182017 Overview: Acute increase of sCr to 1.5 on 06/16, but now down to 1.03 ( at baseline). will monitor at this time, if sCr rises, then will stop lisinopril Bilateral lower extremity edema 06/13/2018 07/17/2018 Overview: --uses 40 lasix po at home as needed --diurese as needed. 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 Leg DVT (deep venous thromboembolism), acute, le ft 01/02/2018 11/25/2019 Overview: --acute DVT gastrocnemius found 12/13/2017 --continue apixaban till platelets <50K, last dose 06/21/2018 Adjustment insomnia 12/07/2017 05/14/2018 Class 1 obesity due to exces s calories with serious comorbidity and body mass index (BMI) of 34.0 to 34.9 in adult 06/26/2017 11/25/2019 Vitamin D deficiency 12/31/2014 06/27/2017 Acute bronchitis with chroni c obstructive pulmonary disease (COPD) 12/30/2014 06/26/2017 Venous insufficiency, peripheral 01/06/2014 11/25/2019 Esophagitis, unspecified 09/25/2012 014 Special screening for malignant neoplasms, colon 09/06/2012 06/13/2018 Tobacco abuse 12/27/2011 10/01/2012 documented as of this encounter (statuses as of 11/03/2022) [facility] History of Past illness Narrative* Problem Noted Date Resolved Date Chest pressure 10/23/2019 11/25/2019 Wheezing 10/23/2019 11/25/2019 Shortness of breath 10/22/2019 11/25/2019 Overview: Admitted with shortness of breath and fluid retention due to comp,ex history, admitted for management and work-up to determine cardiac causes versus primary pulmonary. He was diuresed with IV lasix, and lost 13 pounds in 3 days. Feels much better able to walk in the hallway few laps. Pulmonary team consulted work-up in progress Cardiac testing including echo, PET negative. Nuclear test to rule out amyloid - neg for cardiac Amyloid. Discussion with pulmonary team: No need for RHC this admission. Recommend repeat echo in 3 to 4 weeks (when euvolemic) and if RVSP is >50 mmhg, will need a right heart cath (pulmonary arterial HTN) Per HF team: Would start spironolactone 12.5, on discharge arrange f/u with Dr. Rosenbaum's office for electrolyte monitoring Can stop carvedilol given no indication (ischemia ruled out, and HFrEF ruled out) - Would not continue imdur on discharge given no indication - Lisinopril can be restarted as an outpatient as needed for HTN if renal function is stable Dr. Mcpherson recommends to resume home dose of 40mg daily. Annie Corrales, RN ORTHOTIC TECHNICIAN.[employer] Acute on chronic systolic CHF (congestive heart failure) 10/04/2019 11/25/2019 Fall 07/17/2018 11/25/2019 Difficulty coping 06/20/2018 06/26/2018 Overview: --social work following for supportive counseling --Zyprexa added for recent depressed mood --mood has improved, gabapentin was DC'd as well daughter recalled patient taking this in the past and having severe depression and suicidal ideation (added to allergies) Hyperkalemia 06/18/2018 2018 Overview: K 5.2, will d/c lisinopril Chemotherapy induced nausea and vomiting 018 07/02/2018 Overview: --compazine, Ativan and zofran prn. JOSE ENRIQUE (acute kidney injury) 06/16/20182017 Overview: Acute increase of sCr to 1.5 on 06/16, but now down to 1.03 ( at baseline). will monitor at this time, if sCr rises, then will stop lisinopril Bilateral lower extremity edema 06/13/2018 07/17/2018 Overview: --uses 40 lasix po at home as needed --diurese as needed. 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 Leg DVT (deep venous thromboembolism), acute, le ft 01/02/2018 11/25/2019 Overview: --acute DVT gastrocnemius found 12/13/2017 --continue apixaban till platelets <50K, last dose 06/21/2018 Adjustment insomnia 12/07/2017 05/14/2018 Class 1 obesity due to exces s calories with serious comorbidity and body mass index (BMI) of 34.0 to 34.9 in adult 06/26/2017 11/25/2019 Vitamin D deficiency 12/31/2014 06/27/2017 Acute bronchitis with chroni c obstructive pulmonary disease (COPD) 12/30/2014 06/26/2017 Venous insufficiency, peripheral 01/06/2014 11/25/2019 Esophagitis, unspecified 09/25/2012 014 Special screening for malignant neoplasms, colon 09/06/2012 06/13/2018 Tobacco abuse 12/27/2011 10/01/2012 documented as of this encounter (statuses as of 11/08/2022) [facility] History of Past illness Narrative* Problem Noted Date Resolved Date Chest pressure 10/23/2019 11/25/2019 Wheezing 10/23/2019 11/25/2019 Shortness of breath 10/22/2019 11/25/2019 Overview: Admitted with shortness of breath and fluid retention due to comp,ex history, admitted for management and work-up to determine cardiac causes versus primary pulmonary. He was diuresed with IV lasix, and lost 13 pounds in 3 days. Feels much better able to walk in the hallway few laps. Pulmonary team consulted work-up in progress Cardiac testing including echo, PET negative. Nuclear test to rule out amyloid - neg for cardiac Amyloid. Discussion with pulmonary team: No need for RHC this admission. Recommend repeat echo in 3 to 4 weeks (when euvolemic) and if RVSP is >50 mmhg, will need a right heart cath (pulmonary arterial HTN) Per HF team: Would start spironolactone 12.5, on discharge arrange f/u with Dr. Rosenbaum's office for electrolyte monitoring Can stop carvedilol given no indication (ischemia ruled out, and HFrEF ruled out) - Would not continue imdur on discharge given no indication - Lisinopril can be restarted as an outpatient as needed for HTN if renal function is stable Dr. Mcpherson recommends to resume home dose of 40mg daily. Annie Corrales RN ORTHOTIC TECHNICIAN.[employer] Acute on chronic systolic CHF (congestive heart failure) 10/04/2019 11/25/2019 Fall 07/17/2018 11/25/2019 Difficulty coping 06/20/2018 06/26/2018 Overview: --social work following for supportive counseling --Zyprexa added for recent depressed mood --mood has improved, gabapentin was DC'd as well daughter recalled patient taking this in the past and having severe depression and suicidal ideation (added to allergies) Hyperkalemia 06/18/2018 2018 Overview: K 5.2, will d/c lisinopril Chemotherapy induced nausea and vomiting 018 07/02/2018 Overview: --compazine, Ativan and zofran prn. JOSE ENRIQUE (acute kidney injury) 06/16/20182017 Overview: Acute increase of sCr to 1.5 on 06/16, but now down to 1.03 ( at baseline). will monitor at this time, if sCr rises, then will stop lisinopril Bilateral lower extremity edema 06/13/2018 07/17/2018 Overview: --uses 40 lasix po at home as needed --diurese as needed. 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 Leg DVT (deep venous thromboembolism), acute, le ft 01/02/2018 11/25/2019 Overview: --acute DVT gastrocnemius found 12/13/2017 --continue apixaban till platelets <50K, last dose 06/21/2018 Adjustment insomnia 12/07/2017 05/14/2018 Class 1 obesity due to exces s calories with serious comorbidity and body mass index (BMI) of 34.0 to 34.9 in adult 06/26/2017 11/25/2019 Vitamin D deficiency 12/31/2014 06/27/2017 Acute bronchitis with chroni c obstructive pulmonary disease (COPD) 12/30/2014 06/26/2017 Venous insufficiency, peripheral 01/06/2014 11/25/2019 Esophagitis, unspecified 09/25/2012 014 Special screening for malignant neoplasms, colon 09/06/2012 06/13/2018 Tobacco abuse 12/27/2011 10/01/2012 documented as of this encounter (statuses as of 11/08/2022) [facility] History of Past illness Narrative* Problem Noted Date Resolved Date Chest pressure 10/23/2019 11/25/2019 Wheezing 10/23/2019 11/25/2019 Shortness of breath 10/22/2019 11/25/2019 Overview: Admitted with shortness of breath and fluid retention due to comp,ex history, admitted for management and work-up to determine cardiac causes versus primary pulmonary. He was diuresed with IV lasix, and lost 13 pounds in 3 days. Feels much better able to walk in the hallway few laps. Pulmonary team consulted work-up in progress Cardiac testing including echo, PET negative. Nuclear test to rule out amyloid - neg for cardiac Amyloid. Discussion with pulmonary team: No need for RHC this admission. Recommend repeat echo in 3 to 4 weeks (when euvolemic) and if RVSP is >50 mmhg, will need a right heart cath (pulmonary arterial HTN) Per HF team: Would start spironolactone 12.5, on discharge arrange f/u with Dr. Rosenbaum's office for electrolyte monitoring Can stop carvedilol given no indication (ischemia ruled out, and HFrEF ruled out) - Would not continue imdur on discharge given no indication - Lisinopril can be restarted as an outpatient as needed for HTN if renal function is stable Dr. Mcpherson recommends to resume home dose of 40mg daily. Annie Corrales, RN ORTHOTIC TECHNICIAN.[employer] Acute on chronic systolic CHF (congestive heart failure) 10/04/2019 11/25/2019 Fall 07/17/2018 11/25/2019 Difficulty coping 06/20/2018 06/26/2018 Overview: --social work following for supportive counseling --Zyprexa added for recent depressed mood --mood has improved, gabapentin was DC'd as well daughter recalled patient taking this in the past and having severe depression and suicidal ideation (added to allergies) Hyperkalemia 06/18/2018 2018 Overview: K 5.2, will d/c lisinopril Chemotherapy induced nausea and vomiting 018 07/02/2018 Overview: --compazine, Ativan and zofran prn. JOSE ENRIQUE (acute kidney injury) 06/16/20182017 Overview: Acute increase of sCr to 1.5 on 06/16, but now down to 1.03 ( at baseline). will monitor at this time, if sCr rises, then will stop lisinopril Bilateral lower extremity edema 06/13/2018 07/17/2018 Overview: --uses 40 lasix po at home as needed --diurese as needed. 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 Leg DVT (deep venous thromboembolism), acute, le ft 01/02/2018 11/25/2019 Overview: --acute DVT gastrocnemius found 12/13/2017 --continue apixaban till platelets <50K, last dose 06/21/2018 Adjustment insomnia 12/07/2017 05/14/2018 Class 1 obesity due to exces s calories with serious comorbidity and body mass index (BMI) of 34.0 to 34.9 in adult 06/26/2017 11/25/2019 Vitamin D deficiency 12/31/2014 06/27/2017 Acute bronchitis with chroni c obstructive pulmonary disease (COPD) 12/30/2014 06/26/2017 Venous insufficiency, peripheral 01/06/2014 11/25/2019 Esophagitis, unspecified 09/25/2012 014 Special screening for malignant neoplasms, colon 09/06/2012 06/13/2018 Tobacco abuse 12/27/2011 10/01/2012 documented as of this encounter (statuses as of 11/25/2022) [facility]02-[facility]-2020 History of Past illness Narrative* Problem Noted Date Resolved Date Chest pressure 10/23/2019 11/25/2019 Wheezing 10/23/2019 11/25/2019 Shortness of breath 10/22/2019 11/25/2019 Overview: Admitted with shortness of breath and fluid retention due to comp,ex history, admitted for management and work-up to determine cardiac causes versus primary pulmonary. He was diuresed with IV lasix, and lost 13 pounds in 3 days. Feels much better able to walk in the hallway few laps. Pulmonary team consulted work-up in progress Cardiac testing including echo, PET negative. Nuclear test to rule out amyloid - neg for cardiac Amyloid. Discussion with pulmonary team: No need for RHC this admission. Recommend repeat echo in 3 to 4 weeks (when euvolemic) and if RVSP is >50 mmhg, will need a right heart cath (pulmonary arterial HTN) Per HF team: Would start spironolactone 12.5, on discharge arrange f/u with Dr. Rosenbaum's office for electrolyte monitoring Can stop carvedilol given no indication (ischemia ruled out, and HFrEF ruled out) - Would not continue imdur on discharge given no indication - Lisinopril can be restarted as an outpatient as needed for HTN if renal function is stable Dr. Mcpherson recommends to resume home dose of 40mg daily. Annie Corrales RN ORTHOTIC TECHNICIAN.[employer] Acute on chronic systolic CHF (congestive heart failure) 10/04/2019 11/25/2019 Fall 07/17/2018 11/25/2019 Difficulty coping 06/20/2018 06/26/2018 Overview: --social work following for supportive counseling --Zyprexa added for recent depressed mood --mood has improved, gabapentin was DC'd as well daughter recalled patient taking this in the past and having severe depression and suicidal ideation (added to allergies) Hyperkalemia 06/18/2018 2018 Overview: K 5.2, will d/c lisinopril Chemotherapy induced nausea and vomiting 018 07/02/2018 Overview: --compazine, Ativan and zofran prn. JOSE ENRIQUE (acute kidney injury) 06/16/20182017 Overview: Acute increase of sCr to 1.5 on 06/16, but now down to 1.03 ( at baseline). will monitor at this time, if sCr rises, then will stop lisinopril Bilateral lower extremity edema 06/13/2018 07/17/2018 Overview: --uses 40 lasix po at home as needed --diurese as needed. 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 Leg DVT (deep venous thromboembolism), acute, le ft 01/02/2018 11/25/2019 Overview: --acute DVT gastrocnemius found 12/13/2017 --continue apixaban till platelets <50K, last dose 06/21/2018 Adjustment insomnia 12/07/2017 05/14/2018 Class 1 obesity due to exces s calories with serious comorbidity and body mass index (BMI) of 34.0 to 34.9 in adult 06/26/2017 11/25/2019 Vitamin D deficiency 12/31/2014 06/27/2017 Acute bronchitis with chroni c obstructive pulmonary disease (COPD) 12/30/2014 06/26/2017 Venous insufficiency, peripheral 01/06/2014 11/25/2019 Esophagitis, unspecified 09/25/2012 014 Special screening for malignant neoplasms, colon 09/06/2012 06/13/2018 Tobacco abuse 12/27/2011 10/01/2012 documented as of this encounter (statuses as of 11/30/2022) [facility]02-[facility]-2020 History of Past illness Narrative* Problem Noted Date Resolved Date Chest pressure 10/23/2019 11/25/2019 Wheezing 10/23/2019 11/25/2019 Shortness of breath 10/22/2019 11/25/2019 Overview: Admitted with shortness of breath and fluid retention due to comp,ex history, admitted for management and work-up to determine cardiac causes versus primary pulmonary. He was diuresed with IV lasix, and lost 13 pounds in 3 days. Feels much better able to walk in the hallway few laps. Pulmonary team consulted work-up in progress Cardiac testing including echo, PET negative. Nuclear test to rule out amyloid - neg for cardiac Amyloid. Discussion with pulmonary team: No need for RHC this admission. Recommend repeat echo in 3 to 4 weeks (when euvolemic) and if RVSP is >50 mmhg, will need a right heart cath (pulmonary arterial HTN) Per HF team: Would start spironolactone 12.5, on discharge arrange f/u with Dr. Rosenabum's office for electrolyte monitoring Can stop carvedilol given no indication (ischemia ruled out, and HFrEF ruled out) - Would not continue imdur on discharge given no indication - Lisinopril can be restarted as an outpatient as needed for HTN if renal function is stable Dr. Mcpherson recommends to resume home dose of 40mg daily. Annie Corrales, RN ORTHOTIC TECHNICIAN.[employer] Acute on chronic systolic CHF (congestive heart failure) 10/04/2019 11/25/2019 Fall 07/17/2018 11/25/2019 Difficulty coping 06/20/2018 06/26/2018 Overview: --social work following for supportive counseling --Zyprexa added for recent depressed mood --mood has improved, gabapentin was DC'd as well daughter recalled patient taking this in the past and having severe depression and suicidal ideation (added to allergies) Hyperkalemia 06/18/2018 2018 Overview: K 5.2, will d/c lisinopril Chemotherapy induced nausea and vomiting 018 07/02/2018 Overview: --compazine, Ativan and zofran prn. JOSE ENRIQUE (acute kidney injury) 06/16/20182017 Overview: Acute increase of sCr to 1.5 on 06/16, but now down to 1.03 ( at baseline). will monitor at this time, if sCr rises, then will stop lisinopril Bilateral lower extremity edema 06/13/2018 07/17/2018 Overview: --uses 40 lasix po at home as needed --diurese as needed. 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 Leg DVT (deep venous thromboembolism), acute, le ft 01/02/2018 11/25/2019 Overview: --acute DVT gastrocnemius found 12/13/2017 --continue apixaban till platelets <50K, last dose 06/21/2018 Adjustment insomnia 12/07/2017 05/14/2018 Class 1 obesity due to exces s calories with serious comorbidity and body mass index (BMI) of 34.0 to 34.9 in adult 06/26/2017 11/25/2019 Acute bronchitis with chroni c obstructive pulmonary disease (COPD) 12/30/2014 06/26/2017 Venous insufficiency, peripheral 01/06/2014 11/25/2019 Esophagitis, unspecified 09/25/2012 014 Special screening for malignant neoplasms, colon 09/06/2012 06/13/2018 Tobacco abuse 12/27/2011 10/01/2012 documented as of this encounter (statuses as of 12/19/2022) [facility]2020 History of Past illness Narrative* Problem Noted Date Resolved Date Chest pressure 10/23/2019 11/25/2019 Wheezing 10/23/2019 11/25/2019 Shortness of breath 10/22/2019 11/25/2019 Overview: Admitted with shortness of breath and fluid retention due to comp,ex history, admitted for management and work-up to determine cardiac causes versus primary pulmonary. He was diuresed with IV lasix, and lost 13 pounds in 3 days. Feels much better able to walk in the hallway few laps. Pulmonary team consulted work-up in progress Cardiac testing including echo, PET negative. Nuclear test to rule out amyloid - neg for cardiac Amyloid. Discussion with pulmonary team: No need for RHC this admission. Recommend repeat echo in 3 to 4 weeks (when euvolemic) and if RVSP is >50 mmhg, will need a right heart cath (pulmonary arterial HTN) Per HF team: Would start spironolactone 12.5, on discharge arrange f/u with Dr. Rosenbaum's office for electrolyte monitoring Can stop carvedilol given no indication (ischemia ruled out, and HFrEF ruled out) - Would not continue imdur on discharge given no indication - Lisinopril can be restarted as an outpatient as needed for HTN if renal function is stable Dr. Mcpherson recommends to resume home dose of 40mg daily. Annie Corrales RN ORTHOTIC TECHNICIAN.[employer] Acute on chronic systolic CHF (congestive heart failure) 10/04/2019 11/25/2019 Fall 07/17/2018 11/25/2019 Difficulty coping 06/20/2018 06/26/2018 Overview: --social work following for supportive counseling --Zyprexa added for recent depressed mood --mood has improved, gabapentin was DC'd as well daughter recalled patient taking this in the past and having severe depression and suicidal ideation (added to allergies) Hyperkalemia 06/18/2018 2018 Overview: K 5.2, will d/c lisinopril Chemotherapy induced nausea and vomiting 018 07/02/2018 Overview: --compazine, Ativan and zofran prn. JOSE ENRIQUE (acute kidney injury) 06/16/20182017 Overview: Acute increase of sCr to 1.5 on 06/16, but now down to 1.03 ( at baseline). will monitor at this time, if sCr rises, then will stop lisinopril Bilateral lower extremity edema 06/13/2018 07/17/2018 Overview: --uses 40 lasix po at home as needed --diurese as needed. 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 Leg DVT (deep venous thromboembolism), acute, le ft 01/02/2018 11/25/2019 Overview: --acute DVT gastrocnemius found 12/13/2017 --continue apixaban till platelets <50K, last dose 06/21/2018 Adjustment insomnia 12/07/2017 05/14/2018 Class 1 obesity due to exces s calories with serious comorbidity and body mass index (BMI) of 34.0 to 34.9 in adult 06/26/2017 11/25/2019 Acute bronchitis with chroni c obstructive pulmonary disease (COPD) 12/30/2014 06/26/2017 Venous insufficiency, peripheral 01/06/2014 11/25/2019 Esophagitis, unspecified 09/25/2012 014 Special screening for malignant neoplasms, colon 09/06/2012 06/13/2018 Tobacco abuse 12/27/2011 10/01/2012 documented as of this encounter (statuses as of 12/20/2022) [facility]2020 History of Past illness Narrative* Problem Noted Date Resolved Date Chest pressure 10/23/2019 11/25/2019 Wheezing 10/23/2019 11/25/2019 Shortness of breath 10/22/2019 11/25/2019 Overview: Admitted with shortness of breath and fluid retention due to comp,ex history, admitted for management and work-up to determine cardiac causes versus primary pulmonary. He was diuresed with IV lasix, and lost 13 pounds in 3 days. Feels much better able to walk in the hallway few laps. Pulmonary team consulted work-up in progress Cardiac testing including echo, PET negative. Nuclear test to rule out amyloid - neg for cardiac Amyloid. Discussion with pulmonary team: No need for RHC this admission. Recommend repeat echo in 3 to 4 weeks (when euvolemic) and if RVSP is >50 mmhg, will need a right heart cath (pulmonary arterial HTN) Per HF team: Would start spironolactone 12.5, on discharge arrange f/u with Dr. Rosenbaum's office for electrolyte monitoring Can stop carvedilol given no indication (ischemia ruled out, and HFrEF ruled out) - Would not continue imdur on discharge given no indication - Lisinopril can be restarted as an outpatient as needed for HTN if renal function is stable Dr. Mcpherson recommends to resume home dose of 40mg daily. Annie Corrales, RN ORTHOTIC TECHNICIAN.[employer] Acute on chronic systolic CHF (congestive heart failure) 10/04/2019 11/25/2019 Fall 07/17/2018 11/25/2019 Difficulty coping 06/20/2018 06/26/2018 Overview: --social work following for supportive counseling --Zyprexa added for recent depressed mood --mood has improved, gabapentin was DC'd as well daughter recalled patient taking this in the past and having severe depression and suicidal ideation (added to allergies) Hyperkalemia 06/18/2018 2018 Overview: K 5.2, will d/c lisinopril Chemotherapy induced nausea and vomiting 018 07/02/2018 Overview: --compazine, Ativan and zofran prn. JOSE ENRIQUE (acute kidney injury) 06/16/20182017 Overview: Acute increase of sCr to 1.5 on 06/16, but now down to 1.03 ( at baseline). will monitor at this time, if sCr rises, then will stop lisinopril Bilateral lower extremity edema 06/13/2018 07/17/2018 Overview: --uses 40 lasix po at home as needed --diurese as needed. 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 Leg DVT (deep venous thromboembolism), acute, le ft 01/02/2018 11/25/2019 Overview: --acute DVT gastrocnemius found 12/13/2017 --continue apixaban till platelets <50K, last dose 06/21/2018 Adjustment insomnia 12/07/2017 05/14/2018 Class 1 obesity due to exces s calories with serious comorbidity and body mass index (BMI) of 34.0 to 34.9 in adult 06/26/2017 11/25/2019 Acute bronchitis with chroni c obstructive pulmonary disease (COPD) 12/30/2014 06/26/2017 Venous insufficiency, peripheral 01/06/2014 11/25/2019 Esophagitis, unspecified 09/25/2012 014 Special screening for malignant neoplasms, colon 09/06/2012 06/13/2018 Tobacco abuse 12/27/2011 10/01/2012 documented as of this encounter (statuses as of 12/21/2022) [facility]-2020 History of Past illness Narrative* Problem Noted Date Resolved Date Chest pressure 10/23/2019 11/25/2019 Wheezing 10/23/2019 11/25/2019 Shortness of breath 10/22/2019 11/25/2019 Overview: Admitted with shortness of breath and fluid retention due to comp,ex history, admitted for management and work-up to determine cardiac causes versus primary pulmonary. He was diuresed with IV lasix, and lost 13 pounds in 3 days. Feels much better able to walk in the hallway few laps. Pulmonary team consulted work-up in progress Cardiac testing including echo, PET negative. Nuclear test to rule out amyloid - neg for cardiac Amyloid. Discussion with pulmonary team: No need for RHC this admission. Recommend repeat echo in 3 to 4 weeks (when euvolemic) and if RVSP is >50 mmhg, will need a right heart cath (pulmonary arterial HTN) Per HF team: Would start spironolactone 12.5, on discharge arrange f/u with Dr. Rosenbaum's office for electrolyte monitoring Can stop carvedilol given no indication (ischemia ruled out, and HFrEF ruled out) - Would not continue imdur on discharge given no indication - Lisinopril can be restarted as an outpatient as needed for HTN if renal function is stable Dr. Mcpherson recommends to resume home dose of 40mg daily. Annie Corrales, RN ORTHOTIC TECHNICIAN.[employer] Acute on chronic systolic CHF (congestive heart failure) 10/04/2019 11/25/2019 Fall 07/17/2018 11/25/2019 Difficulty coping 06/20/2018 06/26/2018 Overview: --social work following for supportive counseling --Zyprexa added for recent depressed mood --mood has improved, gabapentin was DC'd as well daughter recalled patient taking this in the past and having severe depression and suicidal ideation (added to allergies) Hyperkalemia 06/18/2018 2018 Overview: K 5.2, will d/c lisinopril Chemotherapy induced nausea and vomiting 018 07/02/2018 Overview: --compazine, Ativan and zofran prn. JOSE ENRIQUE (acute kidney injury) 06/16/20182017 Overview: Acute increase of sCr to 1.5 on 06/16, but now down to 1.03 ( at baseline). will monitor at this time, if sCr rises, then will stop lisinopril Bilateral lower extremity edema 06/13/2018 07/17/2018 Overview: --uses 40 lasix po at home as needed --diurese as needed. 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 Leg DVT (deep venous thromboembolism), acute, le ft 01/02/2018 11/25/2019 Overview: --acute DVT gastrocnemius found 12/13/2017 --continue apixaban till platelets <50K, last dose 06/21/2018 Adjustment insomnia 12/07/2017 05/14/2018 Class 1 obesity due to exces s calories with serious comorbidity and body mass index (BMI) of 34.0 to 34.9 in adult 06/26/2017 11/25/2019 Acute bronchitis with chroni c obstructive pulmonary disease (COPD) 12/30/2014 06/26/2017 Venous insufficiency, peripheral 01/06/2014 11/25/2019 Esophagitis, unspecified 09/25/2012 014 Special screening for malignant neoplasms, colon 09/06/2012 06/13/2018 Tobacco abuse 12/27/2011 10/01/2012 documented as of this encounter (statuses as of 12/24/2022) [facility]2020 History of Past illness Narrative* Problem Noted Date Resolved Date Chest pressure 10/23/2019 11/25/2019 Wheezing 10/23/2019 11/25/2019 Shortness of breath 10/22/2019 11/25/2019 Overview: Admitted with shortness of breath and fluid retention due to comp,ex history, admitted for management and work-up to determine cardiac causes versus primary pulmonary. He was diuresed with IV lasix, and lost 13 pounds in 3 days. Feels much better able to walk in the hallway few laps. Pulmonary team consulted work-up in progress Cardiac testing including echo, PET negative. Nuclear test to rule out amyloid - neg for cardiac Amyloid. Discussion with pulmonary team: No need for RHC this admission. Recommend repeat echo in 3 to 4 weeks (when euvolemic) and if RVSP is >50 mmhg, will need a right heart cath (pulmonary arterial HTN) Per HF team: Would start spironolactone 12.5, on discharge arrange f/u with Dr. Rosenbaum's office for electrolyte monitoring Can stop carvedilol given no indication (ischemia ruled out, and HFrEF ruled out) - Would not continue imdur on discharge given no indication - Lisinopril can be restarted as an outpatient as needed for HTN if renal function is stable Dr. Mcpherson recommends to resume home dose of 40mg daily. Annie Corrales, RN ORTHOTIC TECHNICIAN.[employer] Acute on chronic systolic CHF (congestive heart failure) 10/04/2019 11/25/2019 Fall 07/17/2018 11/25/2019 Difficulty coping 06/20/2018 06/26/2018 Overview: --social work following for supportive counseling --Zyprexa added for recent depressed mood --mood has improved, gabapentin was DC'd as well daughter recalled patient taking this in the past and having severe depression and suicidal ideation (added to allergies) Hyperkalemia 06/18/2018 2018 Overview: K 5.2, will d/c lisinopril Chemotherapy induced nausea and vomiting 018 07/02/2018 Overview: --compazine, Ativan and zofran prn. JOSE ENRIQUE (acute kidney injury) 06/16/20182017 Overview: Acute increase of sCr to 1.5 on 06/16, but now down to 1.03 ( at baseline). will monitor at this time, if sCr rises, then will stop lisinopril Bilateral lower extremity edema 06/13/2018 07/17/2018 Overview: --uses 40 lasix po at home as needed --diurese as needed. 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 Leg DVT (deep venous thromboembolism), acute, le ft 01/02/2018 11/25/2019 Overview: --acute DVT gastrocnemius found 12/13/2017 --continue apixaban till platelets <50K, last dose 06/21/2018 Adjustment insomnia 12/07/2017 05/14/2018 Class 1 obesity due to exces s calories with serious comorbidity and body mass index (BMI) of 34.0 to 34.9 in adult 06/26/2017 11/25/2019 Acute bronchitis with chroni c obstructive pulmonary disease (COPD) 12/30/2014 06/26/2017 Venous insufficiency, peripheral 01/06/2014 11/25/2019 Esophagitis, unspecified 09/25/2012 014 Special screening for malignant neoplasms, colon 09/06/2012 06/13/2018 Tobacco abuse 12/27/2011 10/01/2012 documented as of this encounter (statuses as of 01/09/2023) [facility]2020 History of Past illness Narrative* Problem Noted Date Resolved Date Chest pressure 10/23/2019 11/25/2019 Wheezing 10/23/2019 11/25/2019 Shortness of breath 10/22/2019 11/25/2019 Overview: Admitted with shortness of breath and fluid retention due to comp,ex history, admitted for management and work-up to determine cardiac causes versus primary pulmonary. He was diuresed with IV lasix, and lost 13 pounds in 3 days. Feels much better able to walk in the hallway few laps. Pulmonary team consulted work-up in progress Cardiac testing including echo, PET negative. Nuclear test to rule out amyloid - neg for cardiac Amyloid. Discussion with pulmonary team: No need for RHC this admission. Recommend repeat echo in 3 to 4 weeks (when euvolemic) and if RVSP is >50 mmhg, will need a right heart cath (pulmonary arterial HTN) Per HF team: Would start spironolactone 12.5, on discharge arrange f/u with Dr. Rosenbaum's office for electrolyte monitoring Can stop carvedilol given no indication (ischemia ruled out, and HFrEF ruled out) - Would not continue imdur on discharge given no indication - Lisinopril can be restarted as an outpatient as needed for HTN if renal function is stable Dr. Mcpherson recommends to resume home dose of 40mg daily. Annie Corrales, RN ORTHOTIC TECHNICIAN.[employer] Acute on chronic systolic CHF (congestive heart failure) 10/04/2019 11/25/2019 Fall 07/17/2018 11/25/2019 Difficulty coping 06/20/2018 06/26/2018 Overview: --social work following for supportive counseling --Zyprexa added for recent depressed mood --mood has improved, gabapentin was DC'd as well daughter recalled patient taking this in the past and having severe depression and suicidal ideation (added to allergies) Hyperkalemia 06/18/2018 2018 Overview: K 5.2, will d/c lisinopril Chemotherapy induced nausea and vomiting 018 07/02/2018 Overview: --compazine, Ativan and zofran prn. JOSE ENRIQUE (acute kidney injury) 06/16/20182017 Overview: Acute increase of sCr to 1.5 on 06/16, but now down to 1.03 ( at baseline). will monitor at this time, if sCr rises, then will stop lisinopril Bilateral lower extremity edema 06/13/2018 07/17/2018 Overview: --uses 40 lasix po at home as needed --diurese as needed. 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 Leg DVT (deep venous thromboembolism), acute, le ft 01/02/2018 11/25/2019 Overview: --acute DVT gastrocnemius found 12/13/2017 --continue apixaban till platelets <50K, last dose 06/21/2018 Adjustment insomnia 12/07/2017 05/14/2018 Class 1 obesity due to exces s calories with serious comorbidity and body mass index (BMI) of 34.0 to 34.9 in adult 06/26/2017 11/25/2019 Acute bronchitis with chroni c obstructive pulmonary disease (COPD) 12/30/2014 06/26/2017 Venous insufficiency, peripheral 01/06/2014 11/25/2019 Esophagitis, unspecified 09/25/2012 014 Special screening for malignant neoplasms, colon 09/06/2012 06/13/2018 Tobacco abuse 12/27/2011 10/01/2012 documented as of this encounter (statuses as of 01/13/2023) [facility] History of Past illness Narrative* Problem Noted Date Resolved Date Chest pressure 10/23/2019 11/25/2019 Wheezing 10/23/2019 11/25/2019 Shortness of breath 10/22/2019 11/25/2019 Overview: Admitted with shortness of breath and fluid retention due to comp,ex history, admitted for management and work-up to determine cardiac causes versus primary pulmonary. He was diuresed with IV lasix, and lost 13 pounds in 3 days. Feels much better able to walk in the hallway few laps. Pulmonary team consulted work-up in progress Cardiac testing including echo, PET negative. Nuclear test to rule out amyloid - neg for cardiac Amyloid. Discussion with pulmonary team: No need for RHC this admission. Recommend repeat echo in 3 to 4 weeks (when euvolemic) and if RVSP is >50 mmhg, will need a right heart cath (pulmonary arterial HTN) Per HF team: Would start spironolactone 12.5, on discharge arrange f/u with Dr. Rosenbaum's office for electrolyte monitoring Can stop carvedilol given no indication (ischemia ruled out, and HFrEF ruled out) - Would not continue imdur on discharge given no indication - Lisinopril can be restarted as an outpatient as needed for HTN if renal function is stable Dr. Mcpherson recommends to resume home dose of 40mg daily. Annie Corrales RN ORTHOTIC TECHNICIAN.[employer] Acute on chronic systolic CHF (congestive heart failure) 10/04/2019 11/25/2019 Fall 07/17/2018 11/25/2019 Difficulty coping 06/20/2018 06/26/2018 Overview: --social work following for supportive counseling --Zyprexa added for recent depressed mood --mood has improved, gabapentin was DC'd as well daughter recalled patient taking this in the past and having severe depression and suicidal ideation (added to allergies) Hyperkalemia 06/18/2018 2018 Overview: K 5.2, will d/c lisinopril Chemotherapy induced nausea and vomiting 018 07/02/2018 Overview: --compazine, Ativan and zofran prn. JOSE ENRIQUE (acute kidney injury) 06/16/20182017 Overview: Acute increase of sCr to 1.5 on 06/16, but now down to 1.03 ( at baseline). will monitor at this time, if sCr rises, then will stop lisinopril Bilateral lower extremity edema 06/13/2018 07/17/2018 Overview: --uses 40 lasix po at home as needed --diurese as needed. 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 Leg DVT (deep venous thromboembolism), acute, le ft 01/02/2018 11/25/2019 Overview: --acute DVT gastrocnemius found 12/13/2017 --continue apixaban till platelets <50K, last dose 06/21/2018 Adjustment insomnia 12/07/2017 05/14/2018 Class 1 obesity due to exces s calories with serious comorbidity and body mass index (BMI) of 34.0 to 34.9 in adult 06/26/2017 11/25/2019 Acute bronchitis with chroni c obstructive pulmonary disease (COPD) 12/30/2014 06/26/2017 Venous insufficiency, peripheral 01/06/2014 11/25/2019 Esophagitis, unspecified 09/25/2012 014 Special screening for malignant neoplasms, colon 09/06/2012 06/13/2018 Tobacco abuse 12/27/2011 10/01/2012 documented as of this encounter (statuses as of 01/18/2023) [facility]02-05-2020 History of Past illness Narrative* Problem Noted Date Resolved Date Chest pressure 10/23/2019 11/25/2019 Wheezing 10/23/2019 11/25/2019 Shortness of breath 10/22/2019 11/25/2019 Overview: Admitted with shortness of breath and fluid retention due to comp,ex history, admitted for management and work-up to determine cardiac causes versus primary pulmonary. He was diuresed with IV lasix, and lost 13 pounds in 3 days. Feels much better able to walk in the hallway few laps. Pulmonary team consulted work-up in progress Cardiac testing including echo, PET negative. Nuclear test to rule out amyloid - neg for cardiac Amyloid. Discussion with pulmonary team: No need for RHC this admission. Recommend repeat echo in 3 to 4 weeks (when euvolemic) and if RVSP is >50 mmhg, will need a right heart cath (pulmonary arterial HTN) Per HF team: Would start spironolactone 12.5, on discharge arrange f/u with Dr. Rosenbaum's office for electrolyte monitoring Can stop carvedilol given no indication (ischemia ruled out, and HFrEF ruled out) - Would not continue imdur on discharge given no indication - Lisinopril can be restarted as an outpatient as needed for HTN if renal function is stable Dr. Mcpherson recommends to resume home dose of 40mg daily. Annie Corrales, RN ORTHOTIC TECHNICIAN.[employer] Acute on chronic systolic CHF (congestive heart failure) 10/04/2019 11/25/2019 Fall 07/17/2018 11/25/2019 Difficulty coping 06/20/2018 06/26/2018 Overview: --social work following for supportive counseling --Zyprexa added for recent depressed mood --mood has improved, gabapentin was DC'd as well daughter recalled patient taking this in the past and having severe depression and suicidal ideation (added to allergies) Hyperkalemia 06/18/2018 2018 Overview: K 5.2, will d/c lisinopril Chemotherapy induced nausea and vomiting 018 07/02/2018 Overview: --compazine, Ativan and zofran prn. JOSE ENRIQUE (acute kidney injury) 06/16/20182017 Overview: Acute increase of sCr to 1.5 on 06/16, but now down to 1.03 ( at baseline). will monitor at this time, if sCr rises, then will stop lisinopril Bilateral lower extremity edema 06/13/2018 07/17/2018 Overview: --uses 40 lasix po at home as needed --diurese as needed. 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 Leg DVT (deep venous thromboembolism), acute, le ft 01/02/2018 11/25/2019 Overview: --acute DVT gastrocnemius found 12/13/2017 --continue apixaban till platelets <50K, last dose 06/21/2018 Adjustment insomnia 12/07/2017 05/14/2018 Class 1 obesity due to exces s calories with serious comorbidity and body mass index (BMI) of 34.0 to 34.9 in adult 06/26/2017 11/25/2019 Acute bronchitis with chroni c obstructive pulmonary disease (COPD) 12/30/2014 06/26/2017 Venous insufficiency, peripheral 01/06/2014 11/25/2019 Esophagitis, unspecified 09/25/2012 014 Special screening for malignant neoplasms, colon 09/06/2012 06/13/2018 Tobacco abuse 12/27/2011 10/01/2012 documented as of this encounter (statuses as of 01/25/2023) [facility]02-[facility]-2020 History of Past illness Narrative* Problem Noted Date Resolved Date Chest pressure 10/23/2019 11/25/2019 Wheezing 10/23/2019 11/25/2019 Shortness of breath 10/22/2019 11/25/2019 Overview: Admitted with shortness of breath and fluid retention due to comp,ex history, admitted for management and work-up to determine cardiac causes versus primary pulmonary. He was diuresed with IV lasix, and lost 13 pounds in 3 days. Feels much better able to walk in the hallway few laps. Pulmonary team consulted work-up in progress Cardiac testing including echo, PET negative. Nuclear test to rule out amyloid - neg for cardiac Amyloid. Discussion with pulmonary team: No need for RHC this admission. Recommend repeat echo in 3 to 4 weeks (when euvolemic) and if RVSP is >50 mmhg, will need a right heart cath (pulmonary arterial HTN) Per HF team: Would start spironolactone 12.5, on discharge arrange f/u with Dr. Rosenbaum's office for electrolyte monitoring Can stop carvedilol given no indication (ischemia ruled out, and HFrEF ruled out) - Would not continue imdur on discharge given no indication - Lisinopril can be restarted as an outpatient as needed for HTN if renal function is stable Dr. Mcpherson recommends to resume home dose of 40mg daily. Annie Corrales RN ORTHOTIC TECHNICIAN.[employer] Acute on chronic systolic CHF (congestive heart failure) 10/04/2019 11/25/2019 Fall 07/17/2018 11/25/2019 Difficulty coping 06/20/2018 06/26/2018 Overview: --social work following for supportive counseling --Zyprexa added for recent depressed mood --mood has improved, gabapentin was DC'd as well daughter recalled patient taking this in the past and having severe depression and suicidal ideation (added to allergies) Hyperkalemia 06/18/2018 2018 Overview: K 5.2, will d/c lisinopril Chemotherapy induced nausea and vomiting 018 07/02/2018 Overview: --compazine, Ativan and zofran prn. JOSE ENRIQUE (acute kidney injury) 06/16/20182017 Overview: Acute increase of sCr to 1.5 on 06/16, but now down to 1.03 ( at baseline). will monitor at this time, if sCr rises, then will stop lisinopril Bilateral lower extremity edema 06/13/2018 07/17/2018 Overview: --uses 40 lasix po at home as needed --diurese as needed. 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 Leg DVT (deep venous thromboembolism), acute, le ft 01/02/2018 11/25/2019 Overview: --acute DVT gastrocnemius found 12/13/2017 --continue apixaban till platelets <50K, last dose 06/21/2018 Adjustment insomnia 12/07/2017 05/14/2018 Class 1 obesity due to exces s calories with serious comorbidity and body mass index (BMI) of 34.0 to 34.9 in adult 06/26/2017 11/25/2019 Acute bronchitis with chroni c obstructive pulmonary disease (COPD) 12/30/2014 06/26/2017 Venous insufficiency, peripheral 01/06/2014 11/25/2019 Esophagitis, unspecified 09/25/2012 014 Special screening for malignant neoplasms, colon 09/06/2012 06/13/2018 Tobacco abuse 12/27/2011 10/01/2012 documented as of this encounter (statuses as of 02/14/2023) [facility]-2020 History of Past illness Narrative* Problem Noted Date Resolved Date Chest pressure 10/23/2019 11/25/2019 Wheezing 10/23/2019 11/25/2019 Shortness of breath 10/22/2019 11/25/2019 Overview: Admitted with shortness of breath and fluid retention due to comp,ex history, admitted for management and work-up to determine cardiac causes versus primary pulmonary. He was diuresed with IV lasix, and lost 13 pounds in 3 days. Feels much better able to walk in the hallway few laps. Pulmonary team consulted work-up in progress Cardiac testing including echo, PET negative. Nuclear test to rule out amyloid - neg for cardiac Amyloid. Discussion with pulmonary team: No need for RHC this admission. Recommend repeat echo in 3 to 4 weeks (when euvolemic) and if RVSP is >50 mmhg, will need a right heart cath (pulmonary arterial HTN) Per HF team: Would start spironolactone 12.5, on discharge arrange f/u with Dr. Rosenbaum's office for electrolyte monitoring Can stop carvedilol given no indication (ischemia ruled out, and HFrEF ruled out) - Would not continue imdur on discharge given no indication - Lisinopril can be restarted as an outpatient as needed for HTN if renal function is stable Dr. Mcpherson recommends to resume home dose of 40mg daily. Annie Corrales RN ORTHOTIC TECHNICIAN.[facility] Acute on chronic systolic CHF (congestive heart failure) 10/04/2019 11/25/2019 Fall 07/17/2018 11/25/2019 Difficulty coping 06/20/2018 06/26/2018 Overview: --social work following for supportive counseling --Zyprexa added for recent depressed mood --mood has improved, gabapentin was DC'd as well daughter recalled patient taking this in the past and having severe depression and suicidal ideation (added to allergies) Hyperkalemia 06/18/2018 2018 Overview: K 5.2, will d/c lisinopril Chemotherapy induced nausea and vomiting 018 07/02/2018 Overview: --compazine, Ativan and zofran prn. JOSE ENRIQUE (acute kidney injury) 06/16/20182017 Overview: Acute increase of sCr to 1.5 on 06/16, but now down to 1.03 ( at baseline). will monitor at this time, if sCr rises, then will stop lisinopril Bilateral lower extremity edema 06/13/2018 07/17/2018 Overview: --uses 40 lasix po at home as needed --diurese as needed. 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 Leg DVT (deep venous thromboembolism), acute, le ft 01/02/2018 11/25/2019 Overview: --acute DVT gastrocnemius found 12/13/2017 --continue apixaban till platelets <50K, last dose 06/21/2018 Adjustment insomnia 12/07/2017 05/14/2018 Class 1 obesity due to exces s calories with serious comorbidity and body mass index (BMI) of 34.0 to 34.9 in adult 06/26/2017 11/25/2019 Acute bronchitis with chroni c obstructive pulmonary disease (COPD) 12/30/2014 06/26/2017 Venous insufficiency, peripheral 01/06/2014 11/25/2019 Esophagitis, unspecified 09/25/2012 014 Special screening for malignant neoplasms, colon 09/06/2012 06/13/2018 Tobacco abuse 12/27/2011 10/01/2012 documented as of this encounter (statuses as of 02/16/2023) [facility] History of Past illness Narrative* Problem Noted Date Resolved Date Chest pressure 10/23/2019 11/25/2019 Wheezing 10/23/2019 11/25/2019 Shortness of breath 10/22/2019 11/25/2019 Overview: Admitted with shortness of breath and fluid retention due to comp,ex history, admitted for management and work-up to determine cardiac causes versus primary pulmonary. He was diuresed with IV lasix, and lost 13 pounds in 3 days. Feels much better able to walk in the hallway few laps. Pulmonary team consulted work-up in progress Cardiac testing including echo, PET negative. Nuclear test to rule out amyloid - neg for cardiac Amyloid. Discussion with pulmonary team: No need for RHC this admission. Recommend repeat echo in 3 to 4 weeks (when euvolemic) and if RVSP is >50 mmhg, will need a right heart cath (pulmonary arterial HTN) Per HF team: Would start spironolactone 12.5, on discharge arrange f/u with Dr. Rosenbaum's office for electrolyte monitoring Can stop carvedilol given no indication (ischemia ruled out, and HFrEF ruled out) - Would not continue imdur on discharge given no indication - Lisinopril can be restarted as an outpatient as needed for HTN if renal function is stable Dr. Mcpherson recommends to resume home dose of 40mg daily. Annie Corrales RN ORTHOTIC TECHNICIAN.[employer] Acute on chronic systolic CHF (congestive heart failure) 10/04/2019 11/25/2019 Fall 07/17/2018 11/25/2019 Difficulty coping 06/20/2018 06/26/2018 Overview: --social work following for supportive counseling --Zyprexa added for recent depressed mood --mood has improved, gabapentin was DC'd as well daughter recalled patient taking this in the past and having severe depression and suicidal ideation (added to allergies) Hyperkalemia 06/18/2018 2018 Overview: K 5.2, will d/c lisinopril Chemotherapy induced nausea and vomiting 018 07/02/2018 Overview: --compazine, Ativan and zofran prn. JOSE ENRIQUE (acute kidney injury) 06/16/20182017 Overview: Acute increase of sCr to 1.5 on 06/16, but now down to 1.03 ( at baseline). will monitor at this time, if sCr rises, then will stop lisinopril Bilateral lower extremity edema 06/13/2018 07/17/2018 Overview: --uses 40 lasix po at home as needed --diurese as needed. 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 Leg DVT (deep venous thromboembolism), acute, le ft 01/02/2018 11/25/2019 Overview: --acute DVT gastrocnemius found 12/13/2017 --continue apixaban till platelets <50K, last dose 06/21/2018 Adjustment insomnia 12/07/2017 05/14/2018 Class 1 obesity due to exces s calories with serious comorbidity and body mass index (BMI) of 34.0 to 34.9 in adult 06/26/2017 11/25/2019 Acute bronchitis with chroni c obstructive pulmonary disease (COPD) 12/30/2014 06/26/2017 Venous insufficiency, peripheral 01/06/2014 11/25/2019 Esophagitis, unspecified 09/25/2012 014 Special screening for malignant neoplasms, colon 09/06/2012 06/13/2018 Tobacco abuse 12/27/2011 10/01/2012 documented as of this encounter (statuses as of 02/18/2023) [facility]-2020 History of Past illness Narrative* Problem Noted Date Resolved Date Chest pressure 10/23/2019 11/25/2019 Wheezing 10/23/2019 11/25/2019 Shortness of breath 10/22/2019 11/25/2019 Overview: Admitted with shortness of breath and fluid retention due to comp,ex history, admitted for management and work-up to determine cardiac causes versus primary pulmonary. He was diuresed with IV lasix, and lost 13 pounds in 3 days. Feels much better able to walk in the hallway few laps. Pulmonary team consulted work-up in progress Cardiac testing including echo, PET negative. Nuclear test to rule out amyloid - neg for cardiac Amyloid. Discussion with pulmonary team: No need for RHC this admission. Recommend repeat echo in 3 to 4 weeks (when euvolemic) and if RVSP is >50 mmhg, will need a right heart cath (pulmonary arterial HTN) Per HF team: Would start spironolactone 12.5, on discharge arrange f/u with Dr. Rosenbaum's office for electrolyte monitoring Can stop carvedilol given no indication (ischemia ruled out, and HFrEF ruled out) - Would not continue imdur on discharge given no indication - Lisinopril can be restarted as an outpatient as needed for HTN if renal function is stable Dr. Mcpherson recommends to resume home dose of 40mg daily. Annie Corrales, RN ORTHOTIC TECHNICIAN.[employer] Acute on chronic systolic CHF (congestive heart failure) 10/04/2019 11/25/2019 Fall 07/17/2018 11/25/2019 Difficulty coping 06/20/2018 06/26/2018 Overview: --social work following for supportive counseling --Zyprexa added for recent depressed mood --mood has improved, gabapentin was DC'd as well daughter recalled patient taking this in the past and having severe depression and suicidal ideation (added to allergies) Hyperkalemia 06/18/2018 2018 Overview: K 5.2, will d/c lisinopril Chemotherapy induced nausea and vomiting 018 07/02/2018 Overview: --compazine, Ativan and zofran prn. JOSE ENRIQUE (acute kidney injury) 06/16/20182017 Overview: Acute increase of sCr to 1.5 on 06/16, but now down to 1.03 ( at baseline). will monitor at this time, if sCr rises, then will stop lisinopril Bilateral lower extremity edema 06/13/2018 07/17/2018 Overview: --uses 40 lasix po at home as needed --diurese as needed. 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 Leg DVT (deep venous thromboembolism), acute, le ft 01/02/2018 11/25/2019 Overview: --acute DVT gastrocnemius found 12/13/2017 --continue apixaban till platelets <50K, last dose 06/21/2018 Adjustment insomnia 12/07/2017 05/14/2018 Class 1 obesity due to exces s calories with serious comorbidity and body mass index (BMI) of 34.0 to 34.9 in adult 06/26/2017 11/25/2019 Acute bronchitis with chroni c obstructive pulmonary disease (COPD) 12/30/2014 06/26/2017 Venous insufficiency, peripheral 01/06/2014 11/25/2019 Esophagitis, unspecified 09/25/2012 014 Special screening for malignant neoplasms, colon 09/06/2012 06/13/2018 Tobacco abuse 12/27/2011 10/01/2012 documented as of this encounter (statuses as of 02/19/2023) [facility]-2020 History of Past illness Narrative* Problem Noted Date Resolved Date Chest pressure 10/23/2019 11/25/2019 Wheezing 10/23/2019 11/25/2019 Shortness of breath 10/22/2019 11/25/2019 Overview: Admitted with shortness of breath and fluid retention due to comp,ex history, admitted for management and work-up to determine cardiac causes versus primary pulmonary. He was diuresed with IV lasix, and lost 13 pounds in 3 days. Feels much better able to walk in the hallway few laps. Pulmonary team consulted work-up in progress Cardiac testing including echo, PET negative. Nuclear test to rule out amyloid - neg for cardiac Amyloid. Discussion with pulmonary team: No need for RHC this admission. Recommend repeat echo in 3 to 4 weeks (when euvolemic) and if RVSP is >50 mmhg, will need a right heart cath (pulmonary arterial HTN) Per HF team: Would start spironolactone 12.5, on discharge arrange f/u with Dr. Rosenbaum's office for electrolyte monitoring Can stop carvedilol given no indication (ischemia ruled out, and HFrEF ruled out) - Would not continue imdur on discharge given no indication - Lisinopril can be restarted as an outpatient as needed for HTN if renal function is stable Dr. Mcpherson recommends to resume home dose of 40mg daily. Annie Corrales RN ORTHOTIC TECHNICIAN.[employer] Acute on chronic systolic CHF (congestive heart failure) 10/04/2019 11/25/2019 Fall 07/17/2018 11/25/2019 Difficulty coping 06/20/2018 06/26/2018 Overview: --social work following for supportive counseling --Zyprexa added for recent depressed mood --mood has improved, gabapentin was DC'd as well daughter recalled patient taking this in the past and having severe depression and suicidal ideation (added to allergies) Hyperkalemia 06/18/2018 2018 Overview: K 5.2, will d/c lisinopril Chemotherapy induced nausea and vomiting 018 07/02/2018 Overview: --compazine, Ativan and zofran prn. JOSE ENRIQUE (acute kidney injury) 06/16/20182017 Overview: Acute increase of sCr to 1.5 on 06/16, but now down to 1.03 ( at baseline). will monitor at this time, if sCr rises, then will stop lisinopril Bilateral lower extremity edema 06/13/2018 07/17/2018 Overview: --uses 40 lasix po at home as needed --diurese as needed. 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 Leg DVT (deep venous thromboembolism), acute, le ft 01/02/2018 11/25/2019 Overview: --acute DVT gastrocnemius found 12/13/2017 --continue apixaban till platelets <50K, last dose 06/21/2018 Adjustment insomnia 12/07/2017 05/14/2018 Class 1 obesity due to exces s calories with serious comorbidity and body mass index (BMI) of 34.0 to 34.9 in adult 06/26/2017 11/25/2019 Acute bronchitis with chroni c obstructive pulmonary disease (COPD) 12/30/2014 06/26/2017 Venous insufficiency, peripheral 01/06/2014 11/25/2019 Esophagitis, unspecified 09/25/2012 014 Special screening for malignant neoplasms, colon 09/06/2012 06/13/2018 Tobacco abuse 12/27/2011 10/01/2012 documented as of this encounter (statuses as of 02/23/2023) [facility] History of Past illness Narrative* Problem Noted Date Resolved Date Chest pressure 10/23/2019 11/25/2019 Wheezing 10/23/2019 11/25/2019 Shortness of breath 10/22/2019 11/25/2019 Overview: Admitted with shortness of breath and fluid retention due to comp,ex history, admitted for management and work-up to determine cardiac causes versus primary pulmonary. He was diuresed with IV lasix, and lost 13 pounds in 3 days. Feels much better able to walk in the hallway few laps. Pulmonary team consulted work-up in progress Cardiac testing including echo, PET negative. Nuclear test to rule out amyloid - neg for cardiac Amyloid. Discussion with pulmonary team: No need for RHC this admission. Recommend repeat echo in 3 to 4 weeks (when euvolemic) and if RVSP is >50 mmhg, will need a right heart cath (pulmonary arterial HTN) Per HF team: Would start spironolactone 12.5, on discharge arrange f/u with Dr. Rosenbaum's office for electrolyte monitoring Can stop carvedilol given no indication (ischemia ruled out, and HFrEF ruled out) - Would not continue imdur on discharge given no indication - Lisinopril can be restarted as an outpatient as needed for HTN if renal function is stable Dr. Mcpherson recommends to resume home dose of 40mg daily. Annie Corrales, RN ORTHOTIC TECHNICIAN.[employer] Acute on chronic systolic CHF (congestive heart failure) 10/04/2019 11/25/2019 Fall 07/17/2018 11/25/2019 Difficulty coping 06/20/2018 06/26/2018 Overview: --social work following for supportive counseling --Zyprexa added for recent depressed mood --mood has improved, gabapentin was DC'd as well daughter recalled patient taking this in the past and having severe depression and suicidal ideation (added to allergies) Hyperkalemia 06/18/2018 2018 Overview: K 5.2, will d/c lisinopril Chemotherapy induced nausea and vomiting 018 07/02/2018 Overview: --compazine, Ativan and zofran prn. JOSE ENRIQUE (acute kidney injury) 06/16/20182017 Overview: Acute increase of sCr to 1.5 on 06/16, but now down to 1.03 ( at baseline). will monitor at this time, if sCr rises, then will stop lisinopril Bilateral lower extremity edema 06/13/2018 07/17/2018 Overview: --uses 40 lasix po at home as needed --diurese as needed. 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 Leg DVT (deep venous thromboembolism), acute, le ft 01/02/2018 11/25/2019 Overview: --acute DVT gastrocnemius found 12/13/2017 --continue apixaban till platelets <50K, last dose 06/21/2018 Adjustment insomnia 12/07/2017 05/14/2018 Class 1 obesity due to exces s calories with serious comorbidity and body mass index (BMI) of 34.0 to 34.9 in adult 06/26/2017 11/25/2019 Acute bronchitis with chroni c obstructive pulmonary disease (COPD) 12/30/2014 06/26/2017 Venous insufficiency, peripheral 01/06/2014 11/25/2019 Esophagitis, unspecified 09/25/2012 014 Special screening for malignant neoplasms, colon 09/06/2012 06/13/2018 Tobacco abuse 12/27/2011 10/01/2012 documented as of this encounter (statuses as of 03/03/2023) [facility] History of Past illness Narrative* Problem Noted Date Resolved Date Chest pressure 10/23/2019 11/25/2019 Wheezing 10/23/2019 11/25/2019 Shortness of breath 10/22/2019 11/25/2019 Overview: Admitted with shortness of breath and fluid retention due to comp,ex history, admitted for management and work-up to determine cardiac causes versus primary pulmonary. He was diuresed with IV lasix, and lost 13 pounds in 3 days. Feels much better able to walk in the hallway few laps. Pulmonary team consulted work-up in progress Cardiac testing including echo, PET negative. Nuclear test to rule out amyloid - neg for cardiac Amyloid. Discussion with pulmonary team: No need for RHC this admission. Recommend repeat echo in 3 to 4 weeks (when euvolemic) and if RVSP is >50 mmhg, will need a right heart cath (pulmonary arterial HTN) Per HF team: Would start spironolactone 12.5, on discharge arrange f/u with Dr. Rosenbaum's office for electrolyte monitoring Can stop carvedilol given no indication (ischemia ruled out, and HFrEF ruled out) - Would not continue imdur on discharge given no indication - Lisinopril can be restarted as an outpatient as needed for HTN if renal function is stable Dr. Mcpherson recommends to resume home dose of 40mg daily. Annie Corrales RN ORTHOTIC TECHNICIAN.[employer] Acute on chronic systolic CHF (congestive heart failure) 10/04/2019 11/25/2019 Fall 07/17/2018 11/25/2019 Difficulty coping 06/20/2018 06/26/2018 Overview: --social work following for supportive counseling --Zyprexa added for recent depressed mood --mood has improved, gabapentin was DC'd as well daughter recalled patient taking this in the past and having severe depression and suicidal ideation (added to allergies) Hyperkalemia 06/18/2018 2018 Overview: K 5.2, will d/c lisinopril Chemotherapy induced nausea and vomiting 018 07/02/2018 Overview: --compazine, Ativan and zofran prn. JOSE ENRIQUE (acute kidney injury) 06/16/20182017 Overview: Acute increase of sCr to 1.5 on 06/16, but now down to 1.03 ( at baseline). will monitor at this time, if sCr rises, then will stop lisinopril Bilateral lower extremity edema 06/13/2018 07/17/2018 Overview: --uses 40 lasix po at home as needed --diurese as needed. 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 Leg DVT (deep venous thromboembolism), acute, le ft 01/02/2018 11/25/2019 Overview: --acute DVT gastrocnemius found 12/13/2017 --continue apixaban till platelets <50K, last dose 06/21/2018 Adjustment insomnia 12/07/2017 05/14/2018 Class 1 obesity due to exces s calories with serious comorbidity and body mass index (BMI) of 34.0 to 34.9 in adult 06/26/2017 11/25/2019 Acute bronchitis with chroni c obstructive pulmonary disease (COPD) 12/30/2014 06/26/2017 Venous insufficiency, peripheral 01/06/2014 11/25/2019 Esophagitis, unspecified 09/25/2012 014 Special screening for malignant neoplasms, colon 09/06/2012 06/13/2018 Tobacco abuse 12/27/2011 10/01/2012 documented as of this encounter (statuses as of 03/07/2023) [facility]02-05-2020 History of Past illness Narrative* Problem Noted Date Resolved Date Chest pressure 10/23/2019 11/25/2019 Wheezing 10/23/2019 11/25/2019 Shortness of breath 10/22/2019 11/25/2019 Overview: Admitted with shortness of breath and fluid retention due to comp,ex history, admitted for management and work-up to determine cardiac causes versus primary pulmonary. He was diuresed with IV lasix, and lost 13 pounds in 3 days. Feels much better able to walk in the hallway few laps. Pulmonary team consulted work-up in progress Cardiac testing including echo, PET negative. Nuclear test to rule out amyloid - neg for cardiac Amyloid. Discussion with pulmonary team: No need for RHC this admission. Recommend repeat echo in 3 to 4 weeks (when euvolemic) and if RVSP is >50 mmhg, will need a right heart cath (pulmonary arterial HTN) Per HF team: Would start spironolactone 12.5, on discharge arrange f/u with Dr. Rosenbaum's office for electrolyte monitoring Can stop carvedilol given no indication (ischemia ruled out, and HFrEF ruled out) - Would not continue imdur on discharge given no indication - Lisinopril can be restarted as an outpatient as needed for HTN if renal function is stable Dr. Mcpherson recommends to resume home dose of 40mg daily. Annie Corrales, RN ORTHOTIC TECHNICIAN.[employer] Acute on chronic systolic CHF (congestive heart failure) 10/04/2019 11/25/2019 Fall 07/17/2018 11/25/2019 Difficulty coping 06/20/2018 06/26/2018 Overview: --social work following for supportive counseling --Zyprexa added for recent depressed mood --mood has improved, gabapentin was DC'd as well daughter recalled patient taking this in the past and having severe depression and suicidal ideation (added to allergies) Hyperkalemia 06/18/2018 2018 Overview: K 5.2, will d/c lisinopril Chemotherapy induced nausea and vomiting 018 07/02/2018 Overview: --compazine, Ativan and zofran prn. JOSE ENRIQUE (acute kidney injury) 06/16/20182017 Overview: Acute increase of sCr to 1.5 on 06/16, but now down to 1.03 ( at baseline). will monitor at this time, if sCr rises, then will stop lisinopril Bilateral lower extremity edema 06/13/2018 07/17/2018 Overview: --uses 40 lasix po at home as needed --diurese as needed. 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 Leg DVT (deep venous thromboembolism), acute, le ft 01/02/2018 11/25/2019 Overview: --acute DVT gastrocnemius found 12/13/2017 --continue apixaban till platelets <50K, last dose 06/21/2018 Adjustment insomnia 12/07/2017 05/14/2018 Class 1 obesity due to exces s calories with serious comorbidity and body mass index (BMI) of 34.0 to 34.9 in adult 06/26/2017 11/25/2019 Acute bronchitis with chroni c obstructive pulmonary disease (COPD) 12/30/2014 06/26/2017 Venous insufficiency, peripheral 01/06/2014 11/25/2019 Esophagitis, unspecified 09/25/2012 014 Special screening for malignant neoplasms, colon 09/06/2012 06/13/2018 Tobacco abuse 12/27/2011 10/01/2012 documented as of this encounter (statuses as of 03/13/2023) [facility]02-[facility]-2020 History of Past illness Narrative* Problem Noted Date Resolved Date Chest pressure 10/23/2019 11/25/2019 Wheezing 10/23/2019 11/25/2019 Shortness of breath 10/22/2019 11/25/2019 Overview: Admitted with shortness of breath and fluid retention due to comp,ex history, admitted for management and work-up to determine cardiac causes versus primary pulmonary. He was diuresed with IV lasix, and lost 13 pounds in 3 days. Feels much better able to walk in the hallway few laps. Pulmonary team consulted work-up in progress Cardiac testing including echo, PET negative. Nuclear test to rule out amyloid - neg for cardiac Amyloid. Discussion with pulmonary team: No need for RHC this admission. Recommend repeat echo in 3 to 4 weeks (when euvolemic) and if RVSP is >50 mmhg, will need a right heart cath (pulmonary arterial HTN) Per HF team: Would start spironolactone 12.5, on discharge arrange f/u with Dr. Rosenbaum's office for electrolyte monitoring Can stop carvedilol given no indication (ischemia ruled out, and HFrEF ruled out) - Would not continue imdur on discharge given no indication - Lisinopril can be restarted as an outpatient as needed for HTN if renal function is stable Dr. Mcpherson recommends to resume home dose of 40mg daily. Annie Corrales RN ORTHOTIC TECHNICIAN.[employer] Acute on chronic systolic CHF (congestive heart failure) 10/04/2019 11/25/2019 Fall 07/17/2018 11/25/2019 Difficulty coping 06/20/2018 06/26/2018 Overview: --social work following for supportive counseling --Zyprexa added for recent depressed mood --mood has improved, gabapentin was DC'd as well daughter recalled patient taking this in the past and having severe depression and suicidal ideation (added to allergies) Hyperkalemia 06/18/2018 2018 Overview: K 5.2, will d/c lisinopril Chemotherapy induced nausea and vomiting 018 07/02/2018 Overview: --compazine, Ativan and zofran prn. JOSE ENRIQUE (acute kidney injury) 06/16/20182017 Overview: Acute increase of sCr to 1.5 on 06/16, but now down to 1.03 ( at baseline). will monitor at this time, if sCr rises, then will stop lisinopril Bilateral lower extremity edema 06/13/2018 07/17/2018 Overview: --uses 40 lasix po at home as needed --diurese as needed. 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 Leg DVT (deep venous thromboembolism), acute, le ft 01/02/2018 11/25/2019 Overview: --acute DVT gastrocnemius found 12/13/2017 --continue apixaban till platelets <50K, last dose 06/21/2018 Adjustment insomnia 12/07/2017 05/14/2018 Class 1 obesity due to exces s calories with serious comorbidity and body mass index (BMI) of 34.0 to 34.9 in adult 06/26/2017 11/25/2019 Acute bronchitis with chroni c obstructive pulmonary disease (COPD) 12/30/2014 06/26/2017 Venous insufficiency, peripheral 01/06/2014 11/25/2019 Esophagitis, unspecified 09/25/2012 014 Special screening for malignant neoplasms, colon 09/06/2012 06/13/2018 Tobacco abuse 12/27/2011 10/01/2012 documented as of this encounter (statuses as of 03/20/2023) [facility]2020 History of Past illness Narrative* Problem Noted Date Resolved Date Chest pressure 10/23/2019 11/25/2019 Wheezing 10/23/2019 11/25/2019 Shortness of breath 10/22/2019 11/25/2019 Overview: Admitted with shortness of breath and fluid retention due to comp,ex history, admitted for management and work-up to determine cardiac causes versus primary pulmonary. He was diuresed with IV lasix, and lost 13 pounds in 3 days. Feels much better able to walk in the hallway few laps. Pulmonary team consulted work-up in progress Cardiac testing including echo, PET negative. Nuclear test to rule out amyloid - neg for cardiac Amyloid. Discussion with pulmonary team: No need for RHC this admission. Recommend repeat echo in 3 to 4 weeks (when euvolemic) and if RVSP is >50 mmhg, will need a right heart cath (pulmonary arterial HTN) Per HF team: Would start spironolactone 12.5, on discharge arrange f/u with Dr. Rosenbaum's office for electrolyte monitoring Can stop carvedilol given no indication (ischemia ruled out, and HFrEF ruled out) - Would not continue imdur on discharge given no indication - Lisinopril can be restarted as an outpatient as needed for HTN if renal function is stable Dr. Mcpherson recommends to resume home dose of 40mg daily. Annie Corrales RN ORTHOTIC TECHNICIAN.[employer] Acute on chronic systolic CHF (congestive heart failure) 10/04/2019 11/25/2019 Fall 07/17/2018 11/25/2019 Difficulty coping 06/20/2018 06/26/2018 Overview: --social work following for supportive counseling --Zyprexa added for recent depressed mood --mood has improved, gabapentin was DC'd as well daughter recalled patient taking this in the past and having severe depression and suicidal ideation (added to allergies) Hyperkalemia 06/18/2018 2018 Overview: K 5.2, will d/c lisinopril Chemotherapy induced nausea and vomiting 018 07/02/2018 Overview: --compazine, Ativan and zofran prn. JOSE ENRIQUE (acute kidney injury) 06/16/20182017 Overview: Acute increase of sCr to 1.5 on 06/16, but now down to 1.03 ( at baseline). will monitor at this time, if sCr rises, then will stop lisinopril Bilateral lower extremity edema 06/13/2018 07/17/2018 Overview: --uses 40 lasix po at home as needed --diurese as needed. 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 Leg DVT (deep venous thromboembolism), acute, le ft 01/02/2018 11/25/2019 Overview: --acute DVT gastrocnemius found 12/13/2017 --continue apixaban till platelets <50K, last dose 06/21/2018 Adjustment insomnia 12/07/2017 05/14/2018 Class 1 obesity due to exces s calories with serious comorbidity and body mass index (BMI) of 34.0 to 34.9 in adult 06/26/2017 11/25/2019 Acute bronchitis with chroni c obstructive pulmonary disease (COPD) 12/30/2014 06/26/2017 Venous insufficiency, peripheral 01/06/2014 11/25/2019 Esophagitis, unspecified 09/25/2012 014 Special screening for malignant neoplasms, colon 09/06/2012 06/13/2018 Tobacco abuse 12/27/2011 10/01/2012 documented as of this encounter (statuses as of 03/23/2023) [facility]2020 History of Past illness Narrative* Problem Noted Date Resolved Date Chest pressure 10/23/2019 11/25/2019 Wheezing 10/23/2019 11/25/2019 Shortness of breath 10/22/2019 11/25/2019 Overview: Admitted with shortness of breath and fluid retention due to comp,ex history, admitted for management and work-up to determine cardiac causes versus primary pulmonary. He was diuresed with IV lasix, and lost 13 pounds in 3 days. Feels much better able to walk in the hallway few laps. Pulmonary team consulted work-up in progress Cardiac testing including echo, PET negative. Nuclear test to rule out amyloid - neg for cardiac Amyloid. Discussion with pulmonary team: No need for RHC this admission. Recommend repeat echo in 3 to 4 weeks (when euvolemic) and if RVSP is >50 mmhg, will need a right heart cath (pulmonary arterial HTN) Per HF team: Would start spironolactone 12.5, on discharge arrange f/u with Dr. Rosenbaum's office for electrolyte monitoring Can stop carvedilol given no indication (ischemia ruled out, and HFrEF ruled out) - Would not continue imdur on discharge given no indication - Lisinopril can be restarted as an outpatient as needed for HTN if renal function is stable Dr. Mcpherson recommends to resume home dose of 40mg daily. Annie Corrales, RN ORTHOTIC TECHNICIAN.[employer] Acute on chronic systolic CHF (congestive heart failure) 10/04/2019 11/25/2019 Fall 07/17/2018 11/25/2019 Difficulty coping 06/20/2018 06/26/2018 Overview: --social work following for supportive counseling --Zyprexa added for recent depressed mood --mood has improved, gabapentin was DC'd as well daughter recalled patient taking this in the past and having severe depression and suicidal ideation (added to allergies) Hyperkalemia 06/18/2018 2018 Overview: K 5.2, will d/c lisinopril Chemotherapy induced nausea and vomiting 018 07/02/2018 Overview: --compazine, Ativan and zofran prn. JOSE ENRIQUE (acute kidney injury) 06/16/20182017 Overview: Acute increase of sCr to 1.5 on 06/16, but now down to 1.03 ( at baseline). will monitor at this time, if sCr rises, then will stop lisinopril Bilateral lower extremity edema 06/13/2018 07/17/2018 Overview: --uses 40 lasix po at home as needed --diurese as needed. 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 Leg DVT (deep venous thromboembolism), acute, le ft 01/02/2018 11/25/2019 Overview: --acute DVT gastrocnemius found 12/13/2017 --continue apixaban till platelets <50K, last dose 06/21/2018 Adjustment insomnia 12/07/2017 05/14/2018 Class 1 obesity due to exces s calories with serious comorbidity and body mass index (BMI) of 34.0 to 34.9 in adult 06/26/2017 11/25/2019 Acute bronchitis with chroni c obstructive pulmonary disease (COPD) 12/30/2014 06/26/2017 Venous insufficiency, peripheral 01/06/2014 11/25/2019 Esophagitis, unspecified 09/25/2012 014 Special screening for malignant neoplasms, colon 09/06/2012 06/13/2018 Tobacco abuse 12/27/2011 10/01/2012 documented as of this encounter (statuses as of 03/23/2023) [facility]-2020 History of Past illness Narrative* Problem Noted Date Resolved Date Chest pressure 10/23/2019 11/25/2019 Wheezing 10/23/2019 11/25/2019 Shortness of breath 10/22/2019 11/25/2019 Overview: Admitted with shortness of breath and fluid retention due to comp,ex history, admitted for management and work-up to determine cardiac causes versus primary pulmonary. He was diuresed with IV lasix, and lost 13 pounds in 3 days. Feels much better able to walk in the hallway few laps. Pulmonary team consulted work-up in progress Cardiac testing including echo, PET negative. Nuclear test to rule out amyloid - neg for cardiac Amyloid. Discussion with pulmonary team: No need for RHC this admission. Recommend repeat echo in 3 to 4 weeks (when euvolemic) and if RVSP is >50 mmhg, will need a right heart cath (pulmonary arterial HTN) Per HF team: Would start spironolactone 12.5, on discharge arrange f/u with Dr. Rosenbaum's office for electrolyte monitoring Can stop carvedilol given no indication (ischemia ruled out, and HFrEF ruled out) - Would not continue imdur on discharge given no indication - Lisinopril can be restarted as an outpatient as needed for HTN if renal function is stable Dr. Mcpherson recommends to resume home dose of 40mg daily. Annie Corrales, RN ORTHOTIC TECHNICIAN.[employer] Acute on chronic systolic CHF (congestive heart failure) 10/04/2019 11/25/2019 Fall 07/17/2018 11/25/2019 Difficulty coping 06/20/2018 06/26/2018 Overview: --social work following for supportive counseling --Zyprexa added for recent depressed mood --mood has improved, gabapentin was DC'd as well daughter recalled patient taking this in the past and having severe depression and suicidal ideation (added to allergies) Hyperkalemia 06/18/2018 2018 Overview: K 5.2, will d/c lisinopril Chemotherapy induced nausea and vomiting 018 07/02/2018 Overview: --compazine, Ativan and zofran prn. JOSE ENRIQUE (acute kidney injury) 06/16/20182017 Overview: Acute increase of sCr to 1.5 on 06/16, but now down to 1.03 ( at baseline). will monitor at this time, if sCr rises, then will stop lisinopril Bilateral lower extremity edema 06/13/2018 07/17/2018 Overview: --uses 40 lasix po at home as needed --diurese as needed. 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 Leg DVT (deep venous thromboembolism), acute, le ft 01/02/2018 11/25/2019 Overview: --acute DVT gastrocnemius found 12/13/2017 --continue apixaban till platelets <50K, last dose 06/21/2018 Adjustment insomnia 12/07/2017 05/14/2018 Class 1 obesity due to exces s calories with serious comorbidity and body mass index (BMI) of 34.0 to 34.9 in adult 06/26/2017 11/25/2019 Acute bronchitis with chroni c obstructive pulmonary disease (COPD) 12/30/2014 06/26/2017 Venous insufficiency, peripheral 01/06/2014 11/25/2019 Esophagitis, unspecified 09/25/2012 014 Special screening for malignant neoplasms, colon 09/06/2012 06/13/2018 Tobacco abuse 12/27/2011 10/01/2012 documented as of this encounter (statuses as of 03/24/2023) [facility]2020 History of Past illness Narrative* Problem Noted Date Diagnosed Date Resolved Date Chest pressure 10/23/2019 11/25/2019 Wheezing 10/23/2019 11/25/2019 Shortness of breath 10/22/2019 11/25/19 20 Overview: Admitted with shortness of breath and fluid retention due to comp,ex history, admitted for management and work-up to determine cardiac causes versus primary pulmonary. He was diuresed with IV lasix, and lost 13 pounds in 3 days. Feels much better able to walk in the hallway few laps. Pulmonary team consulted work-up in progress Cardiac testing including echo, PET negative. Nuclear test to rule out amyloid - neg for cardiac Amyloid. Discussion with pulmonary team: No need for RHC this admission. Recommend repeat echo in 3 to 4 weeks (when euvolemic) and if RVSP is >50 mmhg, will need a right heart cath (pulmonary arterial HTN) Per HF team: Would start spironolactone 12.5, on discharge arrange f/u with Dr. Rosenbaum's office for electrolyte monitoring Can stop carvedilol given no indication (ischemia ruled out, and HFrEF ruled out) - Would not continue imdur on discharge given no indication - Lisinopril can be restarted as an outpatient as needed for HTN if renal function is stable Dr. Mcpherson recommends to resume home dose of 40mg daily. Annie Corrales, RN ORTHOTIC TECHNICIAN.[employer] Acute on chronic systolic CH F (congestive heart failure) 10/04/2019 11/25/2019 Fall 07/17/2018 11/25/2019 Difficulty coping 06/20/2018 06/26/2018 Overview: --social work following for supportive counseling --Zyprexa added for recent depressed mood --mood has improved, gabapentin was DC'd as well daughter recalled patient taking this in the past and having severe depression and suicidal ideation (added to allergies) Hyperkalemia 06/18/2018 2018 Overview: K 5.2, will d/c lisinopril Chemotherapy induced nausea and vomiting 06/18/2018 07/02/2018 Overview: --compazine, Ativan and zofran prn. JOSE ENRIQUE (acute kidney injury) 06/16/2018 Overview: Acute increase of sCr to 1.5 on 06/16, but now down to 1.03 ( at baseline). will monitor at this time, if sCr rises, then will stop lisinopril Bilateral lower extremity edema 06/13/2018 07/17/2018 Overview: --uses 40 lasix po at home as needed --diurese as needed. 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 Leg DVT (deep venous thrombo embolism), acute, left 01/02/2018 11/25/2019 Overview: --acute DVT gastrocnemius found 12/13/2017 --continue apixaban till platelets <50K, last dose 06/21/2018 Adjustment insomnia 12/07/2017 05/14/20 18 Class 1 obesity due to exces s calories with serious comorbidity and body mass index (BMI) of 34.0 to 34.9 in adult 06/26/2017 11/25/2019 Acute bronchitis with chroni c obstructive pulmonary disease (COPD) 12/30/2014 06/26/2017 Venous insufficiency, peripheral 01/06/2014 11/25/2019 Esophagitis, unspecified 09/25/2012 Special screening for malign ant neoplasms, colon 09/06/2012 06/13/2018 Tobacco abuse 12/27/2011 10/01/2012 documented as of this encounter (statuses as of 03/30/2023) [facility] History of Past illness Narrative* Problem Noted Date Diagnosed Date Resolved Date Chest pressure 10/23/2019 11/25/2019 Wheezing 10/23/2019 11/25/2019 Shortness of breath 10/22/2019 11/25/19 20 Overview: Admitted with shortness of breath and fluid retention due to comp,ex history, admitted for management and work-up to determine cardiac causes versus primary pulmonary. He was diuresed with IV lasix, and lost 13 pounds in 3 days. Feels much better able to walk in the hallway few laps. Pulmonary team consulted work-up in progress Cardiac testing including echo, PET negative. Nuclear test to rule out amyloid - neg for cardiac Amyloid. Discussion with pulmonary team: No need for RHC this admission. Recommend repeat echo in 3 to 4 weeks (when euvolemic) and if RVSP is >50 mmhg, will need a right heart cath (pulmonary arterial HTN) Per HF team: Would start spironolactone 12.5, on discharge arrange f/u with Dr. Rosenbaum's office for electrolyte monitoring Can stop carvedilol given no indication (ischemia ruled out, and HFrEF ruled out) - Would not continue imdur on discharge given no indication - Lisinopril can be restarted as an outpatient as needed for HTN if renal function is stable Dr. Mcpherson recommends to resume home dose of 40mg daily. Annie Corrales, RN ORTHOTIC TECHNICIAN.[employer] Acute on chronic systolic CH F (congestive heart failure) 10/04/2019 11/25/2019 Fall 07/17/2018 11/25/2019 Difficulty coping 06/20/2018 06/26/2018 Overview: --social work following for supportive counseling --Zyprexa added for recent depressed mood --mood has improved, gabapentin was DC'd as well daughter recalled patient taking this in the past and having severe depression and suicidal ideation (added to allergies) Hyperkalemia 06/18/2018 2018 Overview: K 5.2, will d/c lisinopril Chemotherapy induced nausea and vomiting 06/18/2018 07/02/2018 Overview: --compazine, Ativan and zofran prn. JOSE ENRIQUE (acute kidney injury) 06/16/2018 Overview: Acute increase of sCr to 1.5 on 9/29, but now down to 1.03 ( at baseline). will monitor at this time, if sCr rises, then will stop lisinopril Bilateral lower extremity edema 06/13/2018 07/17/2018 Overview: --uses 40 lasix po at home as needed --diurese as needed. 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 Leg DVT (deep venous thrombo embolism), acute, left 01/02/2018 11/25/2019 Overview: --acute DVT gastrocnemius found 12/13/2017 --continue apixaban till platelets <50K, last dose 06/21/2018 Adjustment insomnia 12/07/2017 05/14/20 18 Class 1 obesity due to exces s calories with serious comorbidity and body mass index (BMI) of 34.0 to 34.9 in adult 06/26/2017 11/25/2019 Acute bronchitis with chroni c obstructive pulmonary disease (COPD) 12/30/2014 06/26/2017 Venous insufficiency, peripheral 01/06/2014 11/25/2019 Esophagitis, unspecified 09/25/2012 Special screening for malign ant neoplasms, colon 09/06/2012 06/13/2018 Tobacco abuse 12/27/2011 10/01/2012 documented as of this encounter (statuses as of 03/31/2023) [facility] History of Past illness Narrative* Problem Noted Date Diagnosed Date Resolved Date Chest pressure 10/23/2019 11/25/2019 Wheezing 10/23/2019 11/25/2019 Shortness of breath 10/22/2019 11/25/19 20 Overview: Admitted with shortness of breath and fluid retention due to comp,ex history, admitted for management and work-up to determine cardiac causes versus primary pulmonary. He was diuresed with IV lasix, and lost 13 pounds in 3 days. Feels much better able to walk in the hallway few laps. Pulmonary team consulted work-up in progress Cardiac testing including echo, PET negative. Nuclear test to rule out amyloid - neg for cardiac Amyloid. Discussion with pulmonary team: No need for RHC this admission. Recommend repeat echo in 3 to 4 weeks (when euvolemic) and if RVSP is >50 mmhg, will need a right heart cath (pulmonary arterial HTN) Per HF team: Would start spironolactone 12.5, on discharge arrange f/u with Dr. Rosenbaum's office for electrolyte monitoring Can stop carvedilol given no indication (ischemia ruled out, and HFrEF ruled out) - Would not continue imdur on discharge given no indication - Lisinopril can be restarted as an outpatient as needed for HTN if renal function is stable Dr. Mcpherson recommends to resume home dose of 40mg daily. Annie Corrales, RN ORTHOTIC TECHNICIAN.[employer] Acute on chronic systolic CH F (congestive heart failure) 10/04/2019 11/25/2019 Fall 07/17/2018 11/25/2019 Difficulty coping 06/20/2018 06/26/2018 Overview: --social work following for supportive counseling --Zyprexa added for recent depressed mood --mood has improved, gabapentin was DC'd as well daughter recalled patient taking this in the past and having severe depression and suicidal ideation (added to allergies) Hyperkalemia 06/18/2018 2018 Overview: K 5.2, will d/c lisinopril Chemotherapy induced nausea and vomiting 06/18/2018 07/02/2018 Overview: --compazine, Ativan and zofran prn. JOSE ENRIQUE (acute kidney injury) 06/16/2018 Overview: Acute increase of sCr to 1.5 on 06/16, but now down to 1.03 ( at baseline). will monitor at this time, if sCr rises, then will stop lisinopril Bilateral lower extremity edema 06/13/2018 07/17/2018 Overview: --uses 40 lasix po at home as needed --diurese as needed. 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 Leg DVT (deep venous thrombo embolism), acute, left 01/02/2018 11/25/2019 Overview: --acute DVT gastrocnemius found 12/13/2017 --continue apixaban till platelets <50K, last dose 06/21/2018 Adjustment insomnia 12/07/2017 05/14/20 18 Class 1 obesity due to exces s calories with serious comorbidity and body mass index (BMI) of 34.0 to 34.9 in adult 06/26/2017 11/25/2019 Acute bronchitis with chroni c obstructive pulmonary disease (COPD) 12/30/2014 06/26/2017 Venous insufficiency, peripheral 01/06/2014 11/25/2019 Esophagitis, unspecified 09/25/2012 Special screening for malign ant neoplasms, colon 09/06/2012 06/13/2018 Tobacco abuse 12/27/2011 10/01/2012 documented as of this encounter (statuses as of 04/01/2023) [facility]02-05-2020 History of Past illness Narrative* Problem Noted Date Diagnosed Date Resolved Date Chest pressure 10/23/2019 11/25/2019 Wheezing 10/23/2019 11/25/2019 Shortness of breath 10/22/2019 11/25/19 20 Overview: Admitted with shortness of breath and fluid retention due to comp,ex history, admitted for management and work-up to determine cardiac causes versus primary pulmonary. He was diuresed with IV lasix, and lost 13 pounds in 3 days. Feels much better able to walk in the hallway few laps. Pulmonary team consulted work-up in progress Cardiac testing including echo, PET negative. Nuclear test to rule out amyloid - neg for cardiac Amyloid. Discussion with pulmonary team: No need for RHC this admission. Recommend repeat echo in 3 to 4 weeks (when euvolemic) and if RVSP is >50 mmhg, will need a right heart cath (pulmonary arterial HTN) Per HF team: Would start spironolactone 12.5, on discharge arrange f/u with Dr. Rosenbaum's office for electrolyte monitoring Can stop carvedilol given no indication (ischemia ruled out, and HFrEF ruled out) - Would not continue imdur on discharge given no indication - Lisinopril can be restarted as an outpatient as needed for HTN if renal function is stable Dr. Mcpherson recommends to resume home dose of 40mg daily. Annie Corrales RN ORTHOTIC TECHNICIAN.[employer] Acute on chronic systolic CH F (congestive heart failure) 10/04/2019 11/25/2019 Fall 07/17/2018 11/25/2019 Difficulty coping 06/20/2018 06/26/2018 Overview: --social work following for supportive counseling --Zyprexa added for recent depressed mood --mood has improved, gabapentin was DC'd as well daughter recalled patient taking this in the past and having severe depression and suicidal ideation (added to allergies) Hyperkalemia 06/18/2018 2018 Overview: K 5.2, will d/c lisinopril Chemotherapy induced nausea and vomiting 06/18/2018 07/02/2018 Overview: --compazine, Ativan and zofran prn. JOSE ENRIQUE (acute kidney injury) 06/16/2018 Overview: Acute increase of sCr to 1.5 on 06/16, but now down to 1.03 ( at baseline). will monitor at this time, if sCr rises, then will stop lisinopril Bilateral lower extremity edema 06/13/2018 07/17/2018 Overview: --uses 40 lasix po at home as needed --diurese as needed. 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 Leg DVT (deep venous thrombo embolism), acute, left 01/02/2018 11/25/2019 Overview: --acute DVT gastrocnemius found 12/13/2017 --continue apixaban till platelets <50K, last dose 06/21/2018 Adjustment insomnia 12/07/2017 05/14/20 18 Class 1 obesity due to exces s calories with serious comorbidity and body mass index (BMI) of 34.0 to 34.9 in adult 06/26/2017 11/25/2019 Acute bronchitis with chroni c obstructive pulmonary disease (COPD) 12/30/2014 06/26/2017 Venous insufficiency, peripheral 01/06/2014 11/25/2019 Esophagitis, unspecified 09/25/2012 04/ Special screening for malign ant neoplasms, colon 09/06/2012 06/13/2018 Tobacco abuse 12/27/2011 10/01/2012 documented as of this encounter (statuses as of 04/02/2023) [facility]02-05-2020 History of Past illness Narrative* Problem Noted Date Diagnosed Date Resolved Date Chest pressure 10/23/2019 11/25/2019 Wheezing 10/23/2019 11/25/2019 Shortness of breath 10/22/2019 11/25/19 20 Overview: Admitted with shortness of breath and fluid retention due to comp,ex history, admitted for management and work-up to determine cardiac causes versus primary pulmonary. He was diuresed with IV lasix, and lost 13 pounds in 3 days. Feels much better able to walk in the hallway few laps. Pulmonary team consulted work-up in progress Cardiac testing including echo, PET negative. Nuclear test to rule out amyloid - neg for cardiac Amyloid. Discussion with pulmonary team: No need for RHC this admission. Recommend repeat echo in 3 to 4 weeks (when euvolemic) and if RVSP is >50 mmhg, will need a right heart cath (pulmonary arterial HTN) Per HF team: Would start spironolactone 12.5, on discharge arrange f/u with Dr. Rosenbaum's office for electrolyte monitoring Can stop carvedilol given no indication (ischemia ruled out, and HFrEF ruled out) - Would not continue imdur on discharge given no indication - Lisinopril can be restarted as an outpatient as needed for HTN if renal function is stable Dr. Mcpherson recommends to resume home dose of 40mg daily. Annie Corrales RN ORTHOTIC TECHNICIAN.[employer] Acute on chronic systolic CH F (congestive heart failure) 10/04/2019 11/25/2019 Fall 07/17/2018 11/25/2019 Difficulty coping 06/20/2018 06/26/2018 Overview: --social work following for supportive counseling --Zyprexa added for recent depressed mood --mood has improved, gabapentin was DC'd as well daughter recalled patient taking this in the past and having severe depression and suicidal ideation (added to allergies) Hyperkalemia 06/18/2018 2018 Overview: K 5.2, will d/c lisinopril Chemotherapy induced nausea and vomiting 06/18/2018 07/02/2018 Overview: --compazine, Ativan and zofran prn. JOSE ENRIQUE (acute kidney injury) 06/16/2018 Overview: Acute increase of sCr to 1.5 on 06/16, but now down to 1.03 ( at baseline). will monitor at this time, if sCr rises, then will stop lisinopril Bilateral lower extremity edema 06/13/2018 07/17/2018 Overview: --uses 40 lasix po at home as needed --diurese as needed. 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 Leg DVT (deep venous thrombo embolism), acute, left 01/02/2018 11/25/2019 Overview: --acute DVT gastrocnemius found 12/13/2017 --continue apixaban till platelets <50K, last dose 06/21/2018 Adjustment insomnia 12/07/2017 05/14/20 18 Class 1 obesity due to exces s calories with serious comorbidity and body mass index (BMI) of 34.0 to 34.9 in adult 06/26/2017 11/25/2019 Acute bronchitis with chroni c obstructive pulmonary disease (COPD) 12/30/2014 06/26/2017 Venous insufficiency, peripheral 01/06/2014 11/25/2019 Esophagitis, unspecified 09/25/2012 Special screening for malign ant neoplasms, colon 09/06/2012 06/13/2018 Tobacco abuse 12/27/2011 10/01/2012 documented as of this encounter (statuses as of 04/03/2023) [facility]02-05-2020 History of Past illness Narrative* Problem Noted Date Diagnosed Date Resolved Date Chest pressure 10/23/2019 11/25/2019 Wheezing 10/23/2019 11/25/2019 Shortness of breath 10/22/2019 11/25/19 20 Overview: Admitted with shortness of breath and fluid retention due to comp,ex history, admitted for management and work-up to determine cardiac causes versus primary pulmonary. He was diuresed with IV lasix, and lost 13 pounds in 3 days. Feels much better able to walk in the hallway few laps. Pulmonary team consulted work-up in progress Cardiac testing including echo, PET negative. Nuclear test to rule out amyloid - neg for cardiac Amyloid. Discussion with pulmonary team: No need for RHC this admission. Recommend repeat echo in 3 to 4 weeks (when euvolemic) and if RVSP is >50 mmhg, will need a right heart cath (pulmonary arterial HTN) Per HF team: Would start spironolactone 12.5, on discharge arrange f/u with Dr. Rosenbaum's office for electrolyte monitoring Can stop carvedilol given no indication (ischemia ruled out, and HFrEF ruled out) - Would not continue imdur on discharge given no indication - Lisinopril can be restarted as an outpatient as needed for HTN if renal function is stable Dr. Mcpherson recommends to resume home dose of 40mg daily. Annie Corrales, RN ORTHOTIC TECHNICIAN.[employer] Acute on chronic systolic CH F (congestive heart failure) 10/04/2019 11/25/2019 Fall 07/17/2018 11/25/2019 Difficulty coping 06/20/2018 06/26/2018 Overview: --social work following for supportive counseling --Zyprexa added for recent depressed mood --mood has improved, gabapentin was DC'd as well daughter recalled patient taking this in the past and having severe depression and suicidal ideation (added to allergies) Hyperkalemia 06/18/2018 2018 Overview: K 5.2, will d/c lisinopril Chemotherapy induced nausea and vomiting 06/18/2018 07/02/2018 Overview: --compazine, Ativan and zofran prn. JOSE ENRIQUE (acute kidney injury) 06/16/2018 Overview: Acute increase of sCr to 1.5 on 06/16, but now down to 1.03 ( at baseline). will monitor at this time, if sCr rises, then will stop lisinopril Bilateral lower extremity edema 06/13/2018 07/17/2018 Overview: --uses 40 lasix po at home as needed --diurese as needed. 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 Leg DVT (deep venous thrombo embolism), acute, left 01/02/2018 11/25/2019 Overview: --acute DVT gastrocnemius found 12/13/2017 --continue apixaban till platelets <50K, last dose 06/21/2018 Adjustment insomnia 12/07/2017 05/14/20 18 Class 1 obesity due to exces s calories with serious comorbidity and body mass index (BMI) of 34.0 to 34.9 in adult 06/26/2017 11/25/2019 Acute bronchitis with chroni c obstructive pulmonary disease (COPD) 12/30/2014 06/26/2017 Venous insufficiency, peripheral 01/06/2014 11/25/2019 Esophagitis, unspecified 09/25/2012 Special screening for malign ant neoplasms, colon 09/06/2012 06/13/2018 Tobacco abuse 12/27/2011 10/01/2012 documented as of this encounter (statuses as of 04/06/2023) [facility]-2020 History of Past illness Narrative* Problem Noted Date Diagnosed Date Resolved Date Chest pressure 10/23/2019 11/25/2019 Wheezing 10/23/2019 11/25/2019 Shortness of breath 10/22/2019 11/25/19 20 Overview: Admitted with shortness of breath and fluid retention due to comp,ex history, admitted for management and work-up to determine cardiac causes versus primary pulmonary. He was diuresed with IV lasix, and lost 13 pounds in 3 days. Feels much better able to walk in the hallway few laps. Pulmonary team consulted work-up in progress Cardiac testing including echo, PET negative. Nuclear test to rule out amyloid - neg for cardiac Amyloid. Discussion with pulmonary team: No need for RHC this admission. Recommend repeat echo in 3 to 4 weeks (when euvolemic) and if RVSP is >50 mmhg, will need a right heart cath (pulmonary arterial HTN) Per HF team: Would start spironolactone 12.5, on discharge arrange f/u with Dr. Rosenbaum's office for electrolyte monitoring Can stop carvedilol given no indication (ischemia ruled out, and HFrEF ruled out) - Would not continue imdur on discharge given no indication - Lisinopril can be restarted as an outpatient as needed for HTN if renal function is stable Dr. Mcpherson recommends to resume home dose of 40mg daily. Annie Corrales RN ORTHOTIC TECHNICIAN.[employer] Acute on chronic systolic CH F (congestive heart failure) 10/04/2019 11/25/2019 Fall 07/17/2018 11/25/2019 Difficulty coping 06/20/2018 06/26/2018 Overview: --social work following for supportive counseling --Zyprexa added for recent depressed mood --mood has improved, gabapentin was DC'd as well daughter recalled patient taking this in the past and having severe depression and suicidal ideation (added to allergies) Hyperkalemia 06/18/2018 2018 Overview: K 5.2, will d/c lisinopril Chemotherapy induced nausea and vomiting 06/18/2018 07/02/2018 Overview: --compazine, Ativan and zofran prn. JOSE ENRIQUE (acute kidney injury) 06/16/2018 Overview: Acute increase of sCr to 1.5 on 06/16, but now down to 1.03 ( at baseline). will monitor at this time, if sCr rises, then will stop lisinopril Bilateral lower extremity edema 06/13/2018 07/17/2018 Overview: --uses 40 lasix po at home as needed --diurese as needed. 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 Leg DVT (deep venous thrombo embolism), acute, left 01/02/2018 11/25/2019 Overview: --acute DVT gastrocnemius found 12/13/2017 --continue apixaban till platelets <50K, last dose 06/21/2018 Adjustment insomnia 12/07/2017 05/14/20 18 Class 1 obesity due to exces s calories with serious comorbidity and body mass index (BMI) of 34.0 to 34.9 in adult 06/26/2017 11/25/2019 Acute bronchitis with chroni c obstructive pulmonary disease (COPD) 12/30/2014 06/26/2017 Venous insufficiency, peripheral 01/06/2014 11/25/2019 Esophagitis, unspecified 09/25/2012 Special screening for malign ant neoplasms, colon 09/06/2012 06/13/2018 Tobacco abuse 12/27/2011 10/01/2012 documented as of this encounter (statuses as of 04/13/2023) [facility]02-05-2020 History of Past illness Narrative* Problem Noted Date Diagnosed Date Resolved Date Chest pressure 10/23/2019 11/25/2019 Wheezing 10/23/2019 11/25/2019 Shortness of breath 10/22/2019 11/25/19 20 Overview: Admitted with shortness of breath and fluid retention due to comp,ex history, admitted for management and work-up to determine cardiac causes versus primary pulmonary. He was diuresed with IV lasix, and lost 13 pounds in 3 days. Feels much better able to walk in the hallway few laps. Pulmonary team consulted work-up in progress Cardiac testing including echo, PET negative. Nuclear test to rule out amyloid - neg for cardiac Amyloid. Discussion with pulmonary team: No need for RHC this admission. Recommend repeat echo in 3 to 4 weeks (when euvolemic) and if RVSP is >50 mmhg, will need a right heart cath (pulmonary arterial HTN) Per HF team: Would start spironolactone 12.5, on discharge arrange f/u with Dr. Rosenbaum's office for electrolyte monitoring Can stop carvedilol given no indication (ischemia ruled out, and HFrEF ruled out) - Would not continue imdur on discharge given no indication - Lisinopril can be restarted as an outpatient as needed for HTN if renal function is stable Dr. Mcpherson recommends to resume home dose of 40mg daily. Annie Corrales RN ORTHOTIC TECHNICIAN.[employer] Acute on chronic systolic CH F (congestive heart failure) 10/04/2019 11/25/2019 Fall 07/17/2018 11/25/2019 Difficulty coping 06/20/2018 06/26/2018 Overview: --social work following for supportive counseling --Zyprexa added for recent depressed mood --mood has improved, gabapentin was DC'd as well daughter recalled patient taking this in the past and having severe depression and suicidal ideation (added to allergies) Hyperkalemia 06/18/2018 2018 Overview: K 5.2, will d/c lisinopril Chemotherapy induced nausea and vomiting 06/18/2018 07/02/2018 Overview: --compazine, Ativan and zofran prn. JOSE ENRIQUE (acute kidney injury) 06/16/2018 Overview: Acute increase of sCr to 1.5 on 06/16, but now down to 1.03 ( at baseline). will monitor at this time, if sCr rises, then will stop lisinopril Bilateral lower extremity edema 06/13/2018 07/17/2018 Overview: --uses 40 lasix po at home as needed --diurese as needed. 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 Leg DVT (deep venous thrombo embolism), acute, left 01/02/2018 11/25/2019 Overview: --acute DVT gastrocnemius found 12/13/2017 --continue apixaban till platelets <50K, last dose 06/21/2018 Adjustment insomnia 12/07/2017 05/14/20 18 Class 1 obesity due to exces s calories with serious comorbidity and body mass index (BMI) of 34.0 to 34.9 in adult 06/26/2017 11/25/2019 Acute bronchitis with chroni c obstructive pulmonary disease (COPD) 12/30/2014 06/26/2017 Venous insufficiency, peripheral 01/06/2014 11/25/2019 Esophagitis, unspecified 09/25/2012 Special screening for malign ant neoplasms, colon 09/06/2012 06/13/2018 Tobacco abuse 12/27/2011 10/01/2012 documented as of this encounter (statuses as of 04/19/2023) [facility]-2020 History of Past illness Narrative* Problem Noted Date Diagnosed Date Resolved Date Chest pressure 10/23/2019 11/25/2019 Wheezing 10/23/2019 11/25/2019 Shortness of breath 10/22/2019 11/25/19 20 Overview: Admitted with shortness of breath and fluid retention due to comp,ex history, admitted for management and work-up to determine cardiac causes versus primary pulmonary. He was diuresed with IV lasix, and lost 13 pounds in 3 days. Feels much better able to walk in the hallway few laps. Pulmonary team consulted work-up in progress Cardiac testing including echo, PET negative. Nuclear test to rule out amyloid - neg for cardiac Amyloid. Discussion with pulmonary team: No need for RHC this admission. Recommend repeat echo in 3 to 4 weeks (when euvolemic) and if RVSP is >50 mmhg, will need a right heart cath (pulmonary arterial HTN) Per HF team: Would start spironolactone 12.5, on discharge arrange f/u with Dr. Rosenbaum's office for electrolyte monitoring Can stop carvedilol given no indication (ischemia ruled out, and HFrEF ruled out) - Would not continue imdur on discharge given no indication - Lisinopril can be restarted as an outpatient as needed for HTN if renal function is stable Dr. Mcpherson recommends to resume home dose of 40mg daily. Annie Corrales RN ORTHOTIC TECHNICIAN.[employer] Acute on chronic systolic CH F (congestive heart failure) 10/04/2019 11/25/2019 Fall 07/17/2018 11/25/2019 Difficulty coping 06/20/2018 06/26/2018 Overview: --social work following for supportive counseling --Zyprexa added for recent depressed mood --mood has improved, gabapentin was DC'd as well daughter recalled patient taking this in the past and having severe depression and suicidal ideation (added to allergies) Hyperkalemia 06/18/2018 2018 Overview: K 5.2, will d/c lisinopril Chemotherapy induced nausea and vomiting 06/18/2018 07/02/2018 Overview: --compazine, Ativan and zofran prn. JOSE ENRIQUE (acute kidney injury) 06/16/2018 Overview: Acute increase of sCr to 1.5 on 06/16, but now down to 1.03 ( at baseline). will monitor at this time, if sCr rises, then will stop lisinopril Bilateral lower extremity edema 06/13/2018 07/17/2018 Overview: --uses 40 lasix po at home as needed --diurese as needed. 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 Leg DVT (deep venous thrombo embolism), acute, left 01/02/2018 11/25/2019 Overview: --acute DVT gastrocnemius found 12/13/2017 --continue apixaban till platelets <50K, last dose 06/21/2018 Adjustment insomnia 12/07/2017 05/14/20 18 Class 1 obesity due to exces s calories with serious comorbidity and body mass index (BMI) of 34.0 to 34.9 in adult 06/26/2017 11/25/2019 Acute bronchitis with chroni c obstructive pulmonary disease (COPD) 12/30/2014 06/26/2017 Venous insufficiency, peripheral 01/06/2014 11/25/2019 Esophagitis, unspecified 09/25/2012 Special screening for malign ant neoplasms, colon 09/06/2012 06/13/2018 Tobacco abuse 12/27/2011 10/01/2012 documented as of this encounter (statuses as of 04/21/2023) [facility]2020 History of Past illness Narrative* Problem Noted Date Diagnosed Date Resolved Date Chest pressure 10/23/2019 11/25/2019 Wheezing 10/23/2019 11/25/2019 Shortness of breath 10/22/2019 11/25/19 20 Overview: Admitted with shortness of breath and fluid retention due to comp,ex history, admitted for management and work-up to determine cardiac causes versus primary pulmonary. He was diuresed with IV lasix, and lost 13 pounds in 3 days. Feels much better able to walk in the hallway few laps. Pulmonary team consulted work-up in progress Cardiac testing including echo, PET negative. Nuclear test to rule out amyloid - neg for cardiac Amyloid. Discussion with pulmonary team: No need for RHC this admission. Recommend repeat echo in 3 to 4 weeks (when euvolemic) and if RVSP is >50 mmhg, will need a right heart cath (pulmonary arterial HTN) Per HF team: Would start spironolactone 12.5, on discharge arrange f/u with Dr. Rosenbaum's office for electrolyte monitoring Can stop carvedilol given no indication (ischemia ruled out, and HFrEF ruled out) - Would not continue imdur on discharge given no indication - Lisinopril can be restarted as an outpatient as needed for HTN if renal function is stable Dr. Mcpherson recommends to resume home dose of 40mg daily. Annie Corrales RN ORTHOTIC TECHNICIAN.[employer] Acute on chronic systolic CH F (congestive heart failure) 10/04/2019 11/25/2019 Fall 07/17/2018 11/25/2019 Difficulty coping 06/20/2018 06/26/2018 Overview: --social work following for supportive counseling --Zyprexa added for recent depressed mood --mood has improved, gabapentin was DC'd as well daughter recalled patient taking this in the past and having severe depression and suicidal ideation (added to allergies) Hyperkalemia 06/18/2018 2018 Overview: K 5.2, will d/c lisinopril Chemotherapy induced nausea and vomiting 06/18/2018 07/02/2018 Overview: --compazine, Ativan and zofran prn. JOSE ENRIQUE (acute kidney injury) 06/16/2018 Overview: Acute increase of sCr to 1.5 on 06/16, but now down to 1.03 ( at baseline). will monitor at this time, if sCr rises, then will stop lisinopril Bilateral lower extremity edema 06/13/2018 07/17/2018 Overview: --uses 40 lasix po at home as needed --diurese as needed. 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 Leg DVT (deep venous thrombo embolism), acute, left 01/02/2018 11/25/2019 Overview: --acute DVT gastrocnemius found 12/13/2017 --continue apixaban till platelets <50K, last dose 06/21/2018 Adjustment insomnia 12/07/2017 05/14/20 18 Class 1 obesity due to exces s calories with serious comorbidity and body mass index (BMI) of 34.0 to 34.9 in adult 06/26/2017 11/25/2019 Acute bronchitis with chroni c obstructive pulmonary disease (COPD) 12/30/2014 06/26/2017 Venous insufficiency, peripheral 01/06/2014 11/25/2019 Esophagitis, unspecified 09/25/2012 Special screening for malign ant neoplasms, colon 09/06/2012 06/13/2018 Tobacco abuse 12/27/2011 10/01/2012 documented as of this encounter (statuses as of 05/01/2023) [facility] History of Past illness Narrative* Problem Noted Date Diagnosed Date Resolved Date Chest pressure 10/23/2019 11/25/2019 Wheezing 10/23/2019 11/25/2019 Shortness of breath 10/22/2019 11/25/19 20 Overview: Admitted with shortness of breath and fluid retention due to comp,ex history, admitted for management and work-up to determine cardiac causes versus primary pulmonary. He was diuresed with IV lasix, and lost 13 pounds in 3 days. Feels much better able to walk in the hallway few laps. Pulmonary team consulted work-up in progress Cardiac testing including echo, PET negative. Nuclear test to rule out amyloid - neg for cardiac Amyloid. Discussion with pulmonary team: No need for RHC this admission. Recommend repeat echo in 3 to 4 weeks (when euvolemic) and if RVSP is >50 mmhg, will need a right heart cath (pulmonary arterial HTN) Per HF team: Would start spironolactone 12.5, on discharge arrange f/u with Dr. Rosenbaum's office for electrolyte monitoring Can stop carvedilol given no indication (ischemia ruled out, and HFrEF ruled out) - Would not continue imdur on discharge given no indication - Lisinopril can be restarted as an outpatient as needed for HTN if renal function is stable Dr. Mcpherson recommends to resume home dose of 40mg daily. Annie Corrales, RN ORTHOTIC TECHNICIAN.[employer] Acute on chronic systolic CH F (congestive heart failure) 10/04/2019 11/25/2019 Fall 07/17/2018 11/25/2019 Difficulty coping 06/20/2018 06/26/2018 Overview: --social work following for supportive counseling --Zyprexa added for recent depressed mood --mood has improved, gabapentin was DC'd as well daughter recalled patient taking this in the past and having severe depression and suicidal ideation (added to allergies) Hyperkalemia 06/18/2018 2018 Overview: K 5.2, will d/c lisinopril Chemotherapy induced nausea and vomiting 06/18/2018 07/02/2018 Overview: --compazine, Ativan and zofran prn. JOSE ENRIQUE (acute kidney injury) 06/16/2018 Overview: Acute increase of sCr to 1.5 on 06/16, but now down to 1.03 ( at baseline). will monitor at this time, if sCr rises, then will stop lisinopril Bilateral lower extremity edema 06/13/2018 07/17/2018 Overview: --uses 40 lasix po at home as needed --diurese as needed. 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 Leg DVT (deep venous thrombo embolism), acute, left 01/02/2018 11/25/2019 Overview: --acute DVT gastrocnemius found 12/13/2017 --continue apixaban till platelets <50K, last dose 06/21/2018 Adjustment insomnia 12/07/2017 05/14/20 18 Class 1 obesity due to exces s calories with serious comorbidity and body mass index (BMI) of 34.0 to 34.9 in adult 06/26/2017 11/25/2019 Acute bronchitis with chroni c obstructive pulmonary disease (COPD) 12/30/2014 06/26/2017 Venous insufficiency, peripheral 01/06/2014 11/25/2019 Esophagitis, unspecified 09/25/2012 Special screening for malign ant neoplasms, colon 09/06/2012 06/13/2018 Tobacco abuse 12/27/2011 10/01/2012 documented as of this encounter (statuses as of 05/03/2023) [facility]02-05-2020 History of Past illness Narrative* Problem Noted Date Diagnosed Date Resolved Date Chest pressure 10/23/2019 11/25/2019 Wheezing 10/23/2019 11/25/2019 Shortness of breath 10/22/2019 11/25/19 20 Overview: Admitted with shortness of breath and fluid retention due to comp,ex history, admitted for management and work-up to determine cardiac causes versus primary pulmonary. He was diuresed with IV lasix, and lost 13 pounds in 3 days. Feels much better able to walk in the hallway few laps. Pulmonary team consulted work-up in progress Cardiac testing including echo, PET negative. Nuclear test to rule out amyloid - neg for cardiac Amyloid. Discussion with pulmonary team: No need for RHC this admission. Recommend repeat echo in 3 to 4 weeks (when euvolemic) and if RVSP is >50 mmhg, will need a right heart cath (pulmonary arterial HTN) Per HF team: Would start spironolactone 12.5, on discharge arrange f/u with Dr. Rosenbaum's office for electrolyte monitoring Can stop carvedilol given no indication (ischemia ruled out, and HFrEF ruled out) - Would not continue imdur on discharge given no indication - Lisinopril can be restarted as an outpatient as needed for HTN if renal function is stable Dr. Mcpherson recommends to resume home dose of 40mg daily. Annie Corrales RN ORTHOTIC TECHNICIAN.[employer] Acute on chronic systolic CH F (congestive heart failure) 10/04/2019 11/25/2019 Fall 07/17/2018 11/25/2019 Difficulty coping 06/20/2018 06/26/2018 Overview: --social work following for supportive counseling --Zyprexa added for recent depressed mood --mood has improved, gabapentin was DC'd as well daughter recalled patient taking this in the past and having severe depression and suicidal ideation (added to allergies) Hyperkalemia 06/18/2018 2018 Overview: K 5.2, will d/c lisinopril Chemotherapy induced nausea and vomiting 06/18/2018 07/02/2018 Overview: --compazine, Ativan and zofran prn. JOSE ENRIQUE (acute kidney injury) 06/16/2018 Overview: Acute increase of sCr to 1.5 on 06/16, but now down to 1.03 ( at baseline). will monitor at this time, if sCr rises, then will stop lisinopril Bilateral lower extremity edema 06/13/2018 07/17/2018 Overview: --uses 40 lasix po at home as needed --diurese as needed. 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 Leg DVT (deep venous thrombo embolism), acute, left 01/02/2018 11/25/2019 Overview: --acute DVT gastrocnemius found 12/13/2017 --continue apixaban till platelets <50K, last dose 06/21/2018 Adjustment insomnia 12/07/2017 05/14/20 18 Class 1 obesity due to exces s calories with serious comorbidity and body mass index (BMI) of 34.0 to 34.9 in adult 06/26/2017 11/25/2019 Acute bronchitis with chroni c obstructive pulmonary disease (COPD) 12/30/2014 06/26/2017 Venous insufficiency, peripheral 01/06/2014 11/25/2019 Esophagitis, unspecified 09/25/2012 Special screening for malign ant neoplasms, colon 09/06/2012 06/13/2018 Tobacco abuse 12/27/2011 10/01/2012 documented as of this encounter (statuses as of 05/18/2023) [facility]02-[facility]-2020 History of Past illness Narrative* Problem Noted Date Diagnosed Date Resolved Date Chest pressure 10/23/2019 11/25/2019 Wheezing 10/23/2019 11/25/2019 Shortness of breath 10/22/2019 11/25/19 20 Overview: Admitted with shortness of breath and fluid retention due to comp,ex history, admitted for management and work-up to determine cardiac causes versus primary pulmonary. He was diuresed with IV lasix, and lost 13 pounds in 3 days. Feels much better able to walk in the hallway few laps. Pulmonary team consulted work-up in progress Cardiac testing including echo, PET negative. Nuclear test to rule out amyloid - neg for cardiac Amyloid. Discussion with pulmonary team: No need for RHC this admission. Recommend repeat echo in 3 to 4 weeks (when euvolemic) and if RVSP is >50 mmhg, will need a right heart cath (pulmonary arterial HTN) Per HF team: Would start spironolactone 12.5, on discharge arrange f/u with Dr. Rosenbaum's office for electrolyte monitoring Can stop carvedilol given no indication (ischemia ruled out, and HFrEF ruled out) - Would not continue imdur on discharge given no indication - Lisinopril can be restarted as an outpatient as needed for HTN if renal function is stable Dr. Mcpherson recommends to resume home dose of 40mg daily. Annie Corrales RN ORTHOTIC TECHNICIAN.[employer] Acute on chronic systolic CH F (congestive heart failure) 10/04/2019 11/25/2019 Fall 07/17/2018 11/25/2019 Difficulty coping 06/20/2018 06/26/2018 Overview: --social work following for supportive counseling --Zyprexa added for recent depressed mood --mood has improved, gabapentin was DC'd as well daughter recalled patient taking this in the past and having severe depression and suicidal ideation (added to allergies) Hyperkalemia 06/18/2018 2018 Overview: K 5.2, will d/c lisinopril Chemotherapy induced nausea and vomiting 06/18/2018 07/02/2018 Overview: --compazine, Ativan and zofran prn. JOSE ENRIQUE (acute kidney injury) 06/16/2018 Overview: Acute increase of sCr to 1.5 on 06/16, but now down to 1.03 ( at baseline). will monitor at this time, if sCr rises, then will stop lisinopril Bilateral lower extremity edema 06/13/2018 07/17/2018 Overview: --uses 40 lasix po at home as needed --diurese as needed. 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 Leg DVT (deep venous thrombo embolism), acute, left 01/02/2018 11/25/2019 Overview: --acute DVT gastrocnemius found 12/13/2017 --continue apixaban till platelets <50K, last dose 06/21/2018 Adjustment insomnia 12/07/2017 05/14/20 18 Class 1 obesity due to exces s calories with serious comorbidity and body mass index (BMI) of 34.0 to 34.9 in adult 06/26/2017 11/25/2019 Acute bronchitis with chroni c obstructive pulmonary disease (COPD) 12/30/2014 06/26/2017 Venous insufficiency, peripheral 01/06/2014 11/25/2019 Esophagitis, unspecified 09/25/2012 Special screening for malign ant neoplasms, colon 09/06/2012 06/13/2018 Tobacco abuse 12/27/2011 10/01/2012 documented as of this encounter (statuses as of 05/19/2023) [facility]-2020 History of Past illness Narrative* Problem Noted Date Diagnosed Date Resolved Date Chest pressure 10/23/2019 11/25/2019 Wheezing 10/23/2019 11/25/2019 Shortness of breath 10/22/2019 11/25/19 20 Overview: Admitted with shortness of breath and fluid retention due to comp,ex history, admitted for management and work-up to determine cardiac causes versus primary pulmonary. He was diuresed with IV lasix, and lost 13 pounds in 3 days. Feels much better able to walk in the hallway few laps. Pulmonary team consulted work-up in progress Cardiac testing including echo, PET negative. Nuclear test to rule out amyloid - neg for cardiac Amyloid. Discussion with pulmonary team: No need for RHC this admission. Recommend repeat echo in 3 to 4 weeks (when euvolemic) and if RVSP is >50 mmhg, will need a right heart cath (pulmonary arterial HTN) Per HF team: Would start spironolactone 12.5, on discharge arrange f/u with Dr. Rosenbaum's office for electrolyte monitoring Can stop carvedilol given no indication (ischemia ruled out, and HFrEF ruled out) - Would not continue imdur on discharge given no indication - Lisinopril can be restarted as an outpatient as needed for HTN if renal function is stable Dr. Mcpherson recommends to resume home dose of 40mg daily. Annie Corrales, RN ORTHOTIC TECHNICIAN.[employer] Acute on chronic systolic CH F (congestive heart failure) 10/04/2019 11/25/2019 Fall 07/17/2018 11/25/2019 Difficulty coping 06/20/2018 06/26/2018 Overview: --social work following for supportive counseling --Zyprexa added for recent depressed mood --mood has improved, gabapentin was DC'd as well daughter recalled patient taking this in the past and having severe depression and suicidal ideation (added to allergies) Hyperkalemia 06/18/2018 2018 Overview: K 5.2, will d/c lisinopril Chemotherapy induced nausea and vomiting 06/18/2018 07/02/2018 Overview: --compazine, Ativan and zofran prn. JOSE ENRIQUE (acute kidney injury) 06/16/2018 Overview: Acute increase of sCr to 1.5 on 06/16, but now down to 1.03 ( at baseline). will monitor at this time, if sCr rises, then will stop lisinopril Bilateral lower extremity edema 06/13/2018 07/17/2018 Overview: --uses 40 lasix po at home as needed --diurese as needed. 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 Leg DVT (deep venous thrombo embolism), acute, left 01/02/2018 11/25/2019 Overview: --acute DVT gastrocnemius found 12/13/2017 --continue apixaban till platelets <50K, last dose 06/21/2018 Adjustment insomnia 12/07/2017 05/14/20 18 Class 1 obesity due to exces s calories with serious comorbidity and body mass index (BMI) of 34.0 to 34.9 in adult 06/26/2017 11/25/2019 Acute bronchitis with chroni c obstructive pulmonary disease (COPD) 12/30/2014 06/26/2017 Venous insufficiency, peripheral 01/06/2014 11/25/2019 Esophagitis, unspecified 09/25/2012 Special screening for malign ant neoplasms, colon 09/06/2012 06/13/2018 Tobacco abuse 12/27/2011 10/01/2012 documented as of this encounter (statuses as of 05/22/2023) [facility]2020 History of Past illness Narrative* Problem Noted Date Diagnosed Date Resolved Date Chest pressure 10/23/2019 11/25/2019 Wheezing 10/23/2019 11/25/2019 Shortness of breath 10/22/2019 11/25/19 20 Overview: Admitted with shortness of breath and fluid retention due to comp,ex history, admitted for management and work-up to determine cardiac causes versus primary pulmonary. He was diuresed with IV lasix, and lost 13 pounds in 3 days. Feels much better able to walk in the hallway few laps. Pulmonary team consulted work-up in progress Cardiac testing including echo, PET negative. Nuclear test to rule out amyloid - neg for cardiac Amyloid. Discussion with pulmonary team: No need for RHC this admission. Recommend repeat echo in 3 to 4 weeks (when euvolemic) and if RVSP is >50 mmhg, will need a right heart cath (pulmonary arterial HTN) Per HF team: Would start spironolactone 12.5, on discharge arrange f/u with Dr. Rosenbaum's office for electrolyte monitoring Can stop carvedilol given no indication (ischemia ruled out, and HFrEF ruled out) - Would not continue imdur on discharge given no indication - Lisinopril can be restarted as an outpatient as needed for HTN if renal function is stable Dr. Mcpherson recommends to resume home dose of 40mg daily. Annie Corrales, RN ORTHOTIC TECHNICIAN.[employer] Acute on chronic systolic CH F (congestive heart failure) 10/04/2019 11/25/2019 Fall 07/17/2018 11/25/2019 Difficulty coping 06/20/2018 06/26/2018 Overview: --social work following for supportive counseling --Zyprexa added for recent depressed mood --mood has improved, gabapentin was DC'd as well daughter recalled patient taking this in the past and having severe depression and suicidal ideation (added to allergies) Hyperkalemia 06/18/2018 2018 Overview: K 5.2, will d/c lisinopril Chemotherapy induced nausea and vomiting 06/18/2018 07/02/2018 Overview: --compazine, Ativan and zofran prn. JOSE ENRIQUE (acute kidney injury) 06/16/2018 Overview: Acute increase of sCr to 1.5 on 06/16, but now down to 1.03 ( at baseline). will monitor at this time, if sCr rises, then will stop lisinopril Bilateral lower extremity edema 06/13/2018 07/17/2018 Overview: --uses 40 lasix po at home as needed --diurese as needed. 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 Leg DVT (deep venous thrombo embolism), acute, left 01/02/2018 11/25/2019 Overview: --acute DVT gastrocnemius found 12/13/2017 --continue apixaban till platelets <50K, last dose 06/21/2018 Adjustment insomnia 12/07/2017 05/14/20 18 Class 1 obesity due to exces s calories with serious comorbidity and body mass index (BMI) of 34.0 to 34.9 in adult 06/26/2017 11/25/2019 Acute bronchitis with chroni c obstructive pulmonary disease (COPD) 12/30/2014 06/26/2017 Venous insufficiency, peripheral 01/06/2014 11/25/2019 Esophagitis, unspecified 09/25/2012 Special screening for malign ant neoplasms, colon 09/06/2012 06/13/2018 Tobacco abuse 12/27/2011 10/01/2012 documented as of this encounter (statuses as of 05/25/2023) [facility]-2020 History of Past illness Narrative* Problem Noted Date Diagnosed Date Resolved Date Chest pressure 10/23/2019 11/25/2019 Wheezing 10/23/2019 11/25/2019 Shortness of breath 10/22/2019 11/25/19 20 Overview: Admitted with shortness of breath and fluid retention due to comp,ex history, admitted for management and work-up to determine cardiac causes versus primary pulmonary. He was diuresed with IV lasix, and lost 13 pounds in 3 days. Feels much better able to walk in the hallway few laps. Pulmonary team consulted work-up in progress Cardiac testing including echo, PET negative. Nuclear test to rule out amyloid - neg for cardiac Amyloid. Discussion with pulmonary team: No need for RHC this admission. Recommend repeat echo in 3 to 4 weeks (when euvolemic) and if RVSP is >50 mmhg, will need a right heart cath (pulmonary arterial HTN) Per HF team: Would start spironolactone 12.5, on discharge arrange f/u with Dr. Rosenbaum's office for electrolyte monitoring Can stop carvedilol given no indication (ischemia ruled out, and HFrEF ruled out) - Would not continue imdur on discharge given no indication - Lisinopril can be restarted as an outpatient as needed for HTN if renal function is stable Dr. Mcpherson recommends to resume home dose of 40mg daily. Annie Corrales RN ORTHOTIC TECHNICIAN.[employer] Acute on chronic systolic CH F (congestive heart failure) 10/04/2019 11/25/2019 Fall 07/17/2018 11/25/2019 Difficulty coping 06/20/2018 06/26/2018 Overview: --social work following for supportive counseling --Zyprexa added for recent depressed mood --mood has improved, gabapentin was DC'd as well daughter recalled patient taking this in the past and having severe depression and suicidal ideation (added to allergies) Hyperkalemia 06/18/2018 2018 Overview: K 5.2, will d/c lisinopril Chemotherapy induced nausea and vomiting 06/18/2018 07/02/2018 Overview: --compazine, Ativan and zofran prn. JOSE ENRIQUE (acute kidney injury) 06/16/2018 Overview: Acute increase of sCr to 1.5 on 06/16, but now down to 1.03 ( at baseline). will monitor at this time, if sCr rises, then will stop lisinopril Bilateral lower extremity edema 06/13/2018 07/17/2018 Overview: --uses 40 lasix po at home as needed --diurese as needed. 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 Leg DVT (deep venous thrombo embolism), acute, left 01/02/2018 11/25/2019 Overview: --acute DVT gastrocnemius found 12/13/2017 --continue apixaban till platelets <50K, last dose 06/21/2018 Adjustment insomnia 12/07/2017 05/14/20 18 Class 1 obesity due to exces s calories with serious comorbidity and body mass index (BMI) of 34.0 to 34.9 in adult 06/26/2017 11/25/2019 Acute bronchitis with chroni c obstructive pulmonary disease (COPD) 12/30/2014 06/26/2017 Venous insufficiency, peripheral 01/06/2014 11/25/2019 Esophagitis, unspecified 09/25/2012 Special screening for malign ant neoplasms, colon 09/06/2012 06/13/2018 Tobacco abuse 12/27/2011 10/01/2012 documented as of this encounter (statuses as of 05/26/2023) [facility]-2020 History of Past illness Narrative* Problem Noted Date Diagnosed Date Resolved Date Chest pressure 10/23/2019 11/25/2019 Wheezing 10/23/2019 11/25/2019 Shortness of breath 10/22/2019 11/25/19 20 Overview: Admitted with shortness of breath and fluid retention due to comp,ex history, admitted for management and work-up to determine cardiac causes versus primary pulmonary. He was diuresed with IV lasix, and lost 13 pounds in 3 days. Feels much better able to walk in the hallway few laps. Pulmonary team consulted work-up in progress Cardiac testing including echo, PET negative. Nuclear test to rule out amyloid - neg for cardiac Amyloid. Discussion with pulmonary team: No need for RHC this admission. Recommend repeat echo in 3 to 4 weeks (when euvolemic) and if RVSP is >50 mmhg, will need a right heart cath (pulmonary arterial HTN) Per HF team: Would start spironolactone 12.5, on discharge arrange f/u with Dr. Rosenbaum's office for electrolyte monitoring Can stop carvedilol given no indication (ischemia ruled out, and HFrEF ruled out) - Would not continue imdur on discharge given no indication - Lisinopril can be restarted as an outpatient as needed for HTN if renal function is stable Dr. Mcpherson recommends to resume home dose of 40mg daily. Annie Corrales, RN ORTHOTIC TECHNICIAN.[employer] Acute on chronic systolic CH F (congestive heart failure) 10/04/2019 11/25/2019 Fall 07/17/2018 11/25/2019 Difficulty coping 06/20/2018 06/26/2018 Overview: --social work following for supportive counseling --Zyprexa added for recent depressed mood --mood has improved, gabapentin was DC'd as well daughter recalled patient taking this in the past and having severe depression and suicidal ideation (added to allergies) Hyperkalemia 06/18/2018 2018 Overview: K 5.2, will d/c lisinopril Chemotherapy induced nausea and vomiting 06/18/2018 07/02/2018 Overview: --compazine, Ativan and zofran prn. JOSE ENRIQUE (acute kidney injury) 06/16/2018 Overview: Acute increase of sCr to 1.5 on 06/16, but now down to 1.03 ( at baseline). will monitor at this time, if sCr rises, then will stop lisinopril Bilateral lower extremity edema 06/13/2018 07/17/2018 Overview: --uses 40 lasix po at home as needed --diurese as needed. 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 Leg DVT (deep venous thrombo embolism), acute, left 01/02/2018 11/25/2019 Overview: --acute DVT gastrocnemius found 12/13/2017 --continue apixaban till platelets <50K, last dose 06/21/2018 Adjustment insomnia 12/07/2017 05/14/20 18 Class 1 obesity due to exces s calories with serious comorbidity and body mass index (BMI) of 34.0 to 34.9 in adult 06/26/2017 11/25/2019 Acute bronchitis with chroni c obstructive pulmonary disease (COPD) 12/30/2014 06/26/2017 Venous insufficiency, peripheral 01/06/2014 11/25/2019 Esophagitis, unspecified 09/25/2012 Special screening for malign ant neoplasms, colon 09/06/2012 06/13/2018 Tobacco abuse 12/27/2011 10/01/2012 documented as of this encounter (statuses as of 05/29/2023) [facility] History of Past illness Narrative* Problem Noted Date Diagnosed Date Resolved Date Chest pressure 10/23/2019 11/25/2019 Wheezing 10/23/2019 11/25/2019 Shortness of breath 10/22/2019 11/25/19 20 Overview: Admitted with shortness of breath and fluid retention due to comp,ex history, admitted for management and work-up to determine cardiac causes versus primary pulmonary. He was diuresed with IV lasix, and lost 13 pounds in 3 days. Feels much better able to walk in the hallway few laps. Pulmonary team consulted work-up in progress Cardiac testing including echo, PET negative. Nuclear test to rule out amyloid - neg for cardiac Amyloid. Discussion with pulmonary team: No need for RHC this admission. Recommend repeat echo in 3 to 4 weeks (when euvolemic) and if RVSP is >50 mmhg, will need a right heart cath (pulmonary arterial HTN) Per HF team: Would start spironolactone 12.5, on discharge arrange f/u with Dr. Rosenbaum's office for electrolyte monitoring Can stop carvedilol given no indication (ischemia ruled out, and HFrEF ruled out) - Would not continue imdur on discharge given no indication - Lisinopril can be restarted as an outpatient as needed for HTN if renal function is stable Dr. Mcpherson recommends to resume home dose of 40mg daily. Annie Corrales RN ORTHOTIC TECHNICIAN.[employer] Acute on chronic systolic CH F (congestive heart failure) 10/04/2019 11/25/2019 Fall 07/17/2018 11/25/2019 Difficulty coping 06/20/2018 06/26/2018 Overview: --social work following for supportive counseling --Zyprexa added for recent depressed mood --mood has improved, gabapentin was DC'd as well daughter recalled patient taking this in the past and having severe depression and suicidal ideation (added to allergies) Hyperkalemia 06/18/2018 2018 Overview: K 5.2, will d/c lisinopril Chemotherapy induced nausea and vomiting 06/18/2018 07/02/2018 Overview: --compazine, Ativan and zofran prn. JOSE ENRIQUE (acute kidney injury) 06/16/2018 Overview: Acute increase of sCr to 1.5 on 06/16, but now down to 1.03 ( at baseline). will monitor at this time, if sCr rises, then will stop lisinopril Bilateral lower extremity edema 06/13/2018 07/17/2018 Overview: --uses 40 lasix po at home as needed --diurese as needed. 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 Leg DVT (deep venous thrombo embolism), acute, left 01/02/2018 11/25/2019 Overview: --acute DVT gastrocnemius found 12/13/2017 --continue apixaban till platelets <50K, last dose 06/21/2018 Adjustment insomnia 12/07/2017 05/14/20 18 Class 1 obesity due to exces s calories with serious comorbidity and body mass index (BMI) of 34.0 to 34.9 in adult 06/26/2017 11/25/2019 Acute bronchitis with chroni c obstructive pulmonary disease (COPD) 12/30/2014 06/26/2017 Venous insufficiency, peripheral 01/06/2014 11/25/2019 Esophagitis, unspecified 09/25/2012 Special screening for malign ant neoplasms, colon 09/06/2012 06/13/2018 Tobacco abuse 12/27/2011 10/01/2012 documented as of this encounter (statuses as of 05/29/2023) [facility]-2020 History of Past illness Narrative* Problem Noted Date Diagnosed Date Resolved Date Chest pressure 10/23/2019 11/25/2019 Wheezing 10/23/2019 11/25/2019 Shortness of breath 10/22/2019 11/25/19 20 Overview: Admitted with shortness of breath and fluid retention due to comp,ex history, admitted for management and work-up to determine cardiac causes versus primary pulmonary. He was diuresed with IV lasix, and lost 13 pounds in 3 days. Feels much better able to walk in the hallway few laps. Pulmonary team consulted work-up in progress Cardiac testing including echo, PET negative. Nuclear test to rule out amyloid - neg for cardiac Amyloid. Discussion with pulmonary team: No need for RHC this admission. Recommend repeat echo in 3 to 4 weeks (when euvolemic) and if RVSP is >50 mmhg, will need a right heart cath (pulmonary arterial HTN) Per HF team: Would start spironolactone 12.5, on discharge arrange f/u with Dr. Rosenbaum's office for electrolyte monitoring Can stop carvedilol given no indication (ischemia ruled out, and HFrEF ruled out) - Would not continue imdur on discharge given no indication - Lisinopril can be restarted as an outpatient as needed for HTN if renal function is stable Dr. Mcpherson recommends to resume home dose of 40mg daily. Annie Corrales, RN ORTHOTIC TECHNICIAN.[employer] Acute on chronic systolic CH F (congestive heart failure) 10/04/2019 11/25/2019 Fall 07/17/2018 11/25/2019 Difficulty coping 06/20/2018 06/26/2018 Overview: --social work following for supportive counseling --Zyprexa added for recent depressed mood --mood has improved, gabapentin was DC'd as well daughter recalled patient taking this in the past and having severe depression and suicidal ideation (added to allergies) Hyperkalemia 06/18/2018 2018 Overview: K 5.2, will d/c lisinopril Chemotherapy induced nausea and vomiting 06/18/2018 07/02/2018 Overview: --compazine, Ativan and zofran prn. JOSE ENRIQUE (acute kidney injury) 06/16/2018 Overview: Acute increase of sCr to 1.5 on 06/16, but now down to 1.03 ( at baseline). will monitor at this time, if sCr rises, then will stop lisinopril Bilateral lower extremity edema 06/13/2018 07/17/2018 Overview: --uses 40 lasix po at home as needed --diurese as needed. 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 Leg DVT (deep venous thrombo embolism), acute, left 01/02/2018 11/25/2019 Overview: --acute DVT gastrocnemius found 12/13/2017 --continue apixaban till platelets <50K, last dose 06/21/2018 Adjustment insomnia 12/07/2017 05/14/20 18 Class 1 obesity due to exces s calories with serious comorbidity and body mass index (BMI) of 34.0 to 34.9 in adult 06/26/2017 11/25/2019 Acute bronchitis with chroni c obstructive pulmonary disease (COPD) 12/30/2014 06/26/2017 Venous insufficiency, peripheral 01/06/2014 11/25/2019 Esophagitis, unspecified 09/25/2012 Special screening for malign ant neoplasms, colon 09/06/2012 06/13/2018 Tobacco abuse 12/27/2011 10/01/2012 documented as of this encounter (statuses as of 06/04/2023) [facility] History of Past illness Narrative* Problem Noted Date Diagnosed Date Resolved Date Chest pressure 10/23/2019 11/25/2019 Wheezing 10/23/2019 11/25/2019 Shortness of breath 10/22/2019 11/25/19 Overview: Admitted with shortness of breath and fluid retention due to comp,ex history, admitted for management and work-up to determine cardiac causes versus primary pulmonary. He was diuresed with IV lasix, and lost 13 pounds in 3 days. Feels much better able to walk in the hallway few laps. Pulmonary team consulted work-up in progress Cardiac testing including echo, PET negative. Nuclear test to rule out amyloid - neg for cardiac Amyloid. Discussion with pulmonary team: No need for RHC this admission. Recommend repeat echo in 3 to 4 weeks (when euvolemic) and if RVSP is >50 mmhg, will need a right heart cath (pulmonary arterial HTN) Per HF team: Would start spironolactone 12.5, on discharge arrange f/u with Dr. Rosenbaum's office for electrolyte monitoring Can stop carvedilol given no indication (ischemia ruled out, and HFrEF ruled out) - Would not continue imdur on discharge given no indication - Lisinopril can be restarted as an outpatient as needed for HTN if renal function is stable Dr. Mcpherson recommends to resume home dose of 40mg daily. Annie Corrales RN ORTHOTIC TECHNICIAN.[employer] Acute on chronic systolic CH F (congestive heart failure) 10/04/2019 11/25/2019 Fall 07/17/2018 11/25/2019 Difficulty coping 06/20/2018 06/26/2018 Overview: --social work following for supportive counseling --Zyprexa added for recent depressed mood --mood has improved, gabapentin was DC'd as well daughter recalled patient taking this in the past and having severe depression and suicidal ideation (added to allergies) Hyperkalemia 06/18/2018 2018 Overview: K 5.2, will d/c lisinopril Chemotherapy induced nausea and vomiting 06/18/2018 07/02/2018 Overview: --compazine, Ativan and zofran prn. JOSE ENRIQUE (acute kidney injury) 06/16/2018 Overview: Acute increase of sCr to 1.5 on 06/16, but now down to 1.03 ( at baseline). will monitor at this time, if sCr rises, then will stop lisinopril Bilateral lower extremity edema 06/13/2018 07/17/2018 Overview: --uses 40 lasix po at home as needed --diurese as needed. 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 Leg DVT (deep venous thrombo embolism), acute, left 01/02/2018 11/25/2019 Overview: --acute DVT gastrocnemius found 12/13/2017 --continue apixaban till platelets <50K, last dose 06/21/2018 Adjustment insomnia 12/07/2017 05/14/20 18 Class 1 obesity due to exces s calories with serious comorbidity and body mass index (BMI) of 34.0 to 34.9 in adult 06/26/2017 11/25/2019 Acute bronchitis with chroni c obstructive pulmonary disease (COPD) 12/30/2014 06/26/2017 Venous insufficiency, peripheral 01/06/2014 11/25/2019 Esophagitis, unspecified 09/25/2012 Special screening for malign ant neoplasms, colon 09/06/2012 06/13/2018 Tobacco abuse 12/27/2011 10/01/2012 documented as of this encounter (statuses as of 06/06/2023) [facility]2020 History of Past illness Narrative* Problem Noted Date Diagnosed Date Resolved Date Chest pressure 10/23/2019 11/25/2019 Wheezing 10/23/2019 11/25/2019 Shortness of breath 10/22/2019 11/25/19 20 Overview: Admitted with shortness of breath and fluid retention due to comp,ex history, admitted for management and work-up to determine cardiac causes versus primary pulmonary. He was diuresed with IV lasix, and lost 13 pounds in 3 days. Feels much better able to walk in the hallway few laps. Pulmonary team consulted work-up in progress Cardiac testing including echo, PET negative. Nuclear test to rule out amyloid - neg for cardiac Amyloid. Discussion with pulmonary team: No need for RHC this admission. Recommend repeat echo in 3 to 4 weeks (when euvolemic) and if RVSP is >50 mmhg, will need a right heart cath (pulmonary arterial HTN) Per HF team: Would start spironolactone 12.5, on discharge arrange f/u with Dr. Rosenbaum's office for electrolyte monitoring Can stop carvedilol given no indication (ischemia ruled out, and HFrEF ruled out) - Would not continue imdur on discharge given no indication - Lisinopril can be restarted as an outpatient as needed for HTN if renal function is stable Dr. Mcpherson recommends to resume home dose of 40mg daily. Annie Corrales, RN ORTHOTIC TECHNICIAN.[employer] Acute on chronic systolic CH F (congestive heart failure) 10/04/2019 11/25/2019 Fall 07/17/2018 11/25/2019 Difficulty coping 06/20/2018 06/26/2018 Overview: --social work following for supportive counseling --Zyprexa added for recent depressed mood --mood has improved, gabapentin was DC'd as well daughter recalled patient taking this in the past and having severe depression and suicidal ideation (added to allergies) Hyperkalemia 06/18/2018 2018 Overview: K 5.2, will d/c lisinopril Chemotherapy induced nausea and vomiting 06/18/2018 07/02/2018 Overview: --compazine, Ativan and zofran prn. JOSE ENRIQUE (acute kidney injury) 06/16/2018 Overview: Acute increase of sCr to 1.5 on 06/16, but now down to 1.03 ( at baseline). will monitor at this time, if sCr rises, then will stop lisinopril Bilateral lower extremity edema 06/13/2018 07/17/2018 Overview: --uses 40 lasix po at home as needed --diurese as needed. 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 Leg DVT (deep venous thrombo embolism), acute, left 01/02/2018 11/25/2019 Overview: --acute DVT gastrocnemius found 12/13/2017 --continue apixaban till platelets <50K, last dose 06/21/2018 Adjustment insomnia 12/07/2017 05/14/20 18 Class 1 obesity due to exces s calories with serious comorbidity and body mass index (BMI) of 34.0 to 34.9 in adult 06/26/2017 11/25/2019 Acute bronchitis with chroni c obstructive pulmonary disease (COPD) 12/30/2014 06/26/2017 Venous insufficiency, peripheral 01/06/2014 11/25/2019 Esophagitis, unspecified 09/25/2012 Special screening for malign ant neoplasms, colon 09/06/2012 06/13/2018 Tobacco abuse 12/27/2011 10/01/2012 documented as of this encounter (statuses as of 06/12/2023) [facility]2020 History of Past illness Narrative* Problem Noted Date Diagnosed Date Resolved Date Chest pressure 10/23/2019 11/25/2019 Wheezing 10/23/2019 11/25/2019 Shortness of breath 10/22/2019 11/25/19 20 Overview: Admitted with shortness of breath and fluid retention due to comp,ex history, admitted for management and work-up to determine cardiac causes versus primary pulmonary. He was diuresed with IV lasix, and lost 13 pounds in 3 days. Feels much better able to walk in the hallway few laps. Pulmonary team consulted work-up in progress Cardiac testing including echo, PET negative. Nuclear test to rule out amyloid - neg for cardiac Amyloid. Discussion with pulmonary team: No need for RHC this admission. Recommend repeat echo in 3 to 4 weeks (when euvolemic) and if RVSP is >50 mmhg, will need a right heart cath (pulmonary arterial HTN) Per HF team: Would start spironolactone 12.5, on discharge arrange f/u with Dr. Rosenbaum's office for electrolyte monitoring Can stop carvedilol given no indication (ischemia ruled out, and HFrEF ruled out) - Would not continue imdur on discharge given no indication - Lisinopril can be restarted as an outpatient as needed for HTN if renal function is stable Dr. Mcpherson recommends to resume home dose of 40mg daily. Annie Corrales, RN ORTHOTIC TECHNICIAN.[employer] Acute on chronic systolic CH F (congestive heart failure) 10/04/2019 11/25/2019 Fall 07/17/2018 11/25/2019 Difficulty coping 06/20/2018 06/26/2018 Overview: --social work following for supportive counseling --Zyprexa added for recent depressed mood --mood has improved, gabapentin was DC'd as well daughter recalled patient taking this in the past and having severe depression and suicidal ideation (added to allergies) Hyperkalemia 06/18/2018 2018 Overview: K 5.2, will d/c lisinopril Chemotherapy induced nausea and vomiting 06/18/2018 07/02/2018 Overview: --compazine, Ativan and zofran prn. JOSE ENRIQUE (acute kidney injury) 06/16/2018 Overview: Acute increase of sCr to 1.5 on 06/16, but now down to 1.03 ( at baseline). will monitor at this time, if sCr rises, then will stop lisinopril Bilateral lower extremity edema 06/13/2018 07/17/2018 Overview: --uses 40 lasix po at home as needed --diurese as needed. 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 Leg DVT (deep venous thrombo embolism), acute, left 01/02/2018 11/25/2019 Overview: --acute DVT gastrocnemius found 12/13/2017 --continue apixaban till platelets <50K, last dose 06/21/2018 Adjustment insomnia 12/07/2017 05/14/20 18 Class 1 obesity due to exces s calories with serious comorbidity and body mass index (BMI) of 34.0 to 34.9 in adult 06/26/2017 11/25/2019 Acute bronchitis with chroni c obstructive pulmonary disease (COPD) (HCC) 12/30/2014 7 Venous insufficiency, peripheral 01/06/2014 11/25/2019 Esophagitis, unspecified 09/25/2012 Special screening for malign ant neoplasms, colon 09/06/2012 06/13/2018 Tobacco abuse 12/27/2011 10/01/2012 documented as of this encounter (statuses as of 06/24/2023) [facility]2020 History of Past illness Narrative* Problem Noted Date Diagnosed Date Resolved Date Chest pressure 10/23/2019 11/25/2019 Wheezing 10/23/2019 11/25/2019 Shortness of breath 10/22/2019 11/25/19 20 Overview: Admitted with shortness of breath and fluid retention due to comp,ex history, admitted for management and work-up to determine cardiac causes versus primary pulmonary. He was diuresed with IV lasix, and lost 13 pounds in 3 days. Feels much better able to walk in the hallway few laps. Pulmonary team consulted work-up in progress Cardiac testing including echo, PET negative. Nuclear test to rule out amyloid - neg for cardiac Amyloid. Discussion with pulmonary team: No need for RHC this admission. Recommend repeat echo in 3 to 4 weeks (when euvolemic) and if RVSP is >50 mmhg, will need a right heart cath (pulmonary arterial HTN) Per HF team: Would start spironolactone 12.5, on discharge arrange f/u with Dr. Rosenbaum's office for electrolyte monitoring Can stop carvedilol given no indication (ischemia ruled out, and HFrEF ruled out) - Would not continue imdur on discharge given no indication - Lisinopril can be restarted as an outpatient as needed for HTN if renal function is stable Dr. Mcpherson recommends to resume home dose of 40mg daily. Annie Corrales, RN ORTHOTIC TECHNICIAN.[employer] Acute on chronic systolic CH F (congestive heart failure) 10/04/2019 11/25/2019 Fall 07/17/2018 11/25/2019 Difficulty coping 06/20/2018 06/26/2018 Overview: --social work following for supportive counseling --Zyprexa added for recent depressed mood --mood has improved, gabapentin was DC'd as well daughter recalled patient taking this in the past and having severe depression and suicidal ideation (added to allergies) Hyperkalemia 06/18/2018 2018 Overview: K 5.2, will d/c lisinopril Chemotherapy induced nausea and vomiting 06/18/2018 07/02/2018 Overview: --compazine, Ativan and zofran prn. JOSE ENRIQUE (acute kidney injury) 06/16/2018 Overview: Acute increase of sCr to 1.5 on 06/16, but now down to 1.03 ( at baseline). will monitor at this time, if sCr rises, then will stop lisinopril Bilateral lower extremity edema 06/13/2018 07/17/2018 Overview: --uses 40 lasix po at home as needed --diurese as needed. 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 Leg DVT (deep venous thrombo embolism), acute, left 01/02/2018 11/25/2019 Overview: --acute DVT gastrocnemius found 12/13/2017 --continue apixaban till platelets <50K, last dose 06/21/2018 Adjustment insomnia 12/07/2017 05/14/20 18 Class 1 obesity due to exces s calories with serious comorbidity and body mass index (BMI) of 34.0 to 34.9 in adult 06/26/2017 11/25/2019 Acute bronchitis with chroni c obstructive pulmonary disease (COPD) (HCC) 12/30/2014 7 Venous insufficiency, peripheral 01/06/2014 11/25/2019 Esophagitis, unspecified 09/25/2012 Special screening for malign ant neoplasms, colon 09/06/2012 06/13/2018 Tobacco abuse 12/27/2011 10/01/2012 documented as of this encounter (statuses as of 06/27/2023) [facility]2020 History of Past illness Narrative* Problem Noted Date Diagnosed Date Resolved Date Chest pressure 10/23/2019 11/25/2019 Wheezing 10/23/2019 11/25/2019 Shortness of breath 10/22/2019 11/25/19 20 Overview: Admitted with shortness of breath and fluid retention due to comp,ex history, admitted for management and work-up to determine cardiac causes versus primary pulmonary. He was diuresed with IV lasix, and lost 13 pounds in 3 days. Feels much better able to walk in the hallway few laps. Pulmonary team consulted work-up in progress Cardiac testing including echo, PET negative. Nuclear test to rule out amyloid - neg for cardiac Amyloid. Discussion with pulmonary team: No need for RHC this admission. Recommend repeat echo in 3 to 4 weeks (when euvolemic) and if RVSP is >50 mmhg, will need a right heart cath (pulmonary arterial HTN) Per HF team: Would start spironolactone 12.5, on discharge arrange f/u with Dr. Rosenbaum's office for electrolyte monitoring Can stop carvedilol given no indication (ischemia ruled out, and HFrEF ruled out) - Would not continue imdur on discharge given no indication - Lisinopril can be restarted as an outpatient as needed for HTN if renal function is stable Dr. Mcpherson recommends to resume home dose of 40mg daily. Annie Corrales RN ORTHOTIC TECHNICIAN.[employer] Acute on chronic systolic CH F (congestive heart failure) 10/04/2019 11/25/2019 Fall 07/17/2018 11/25/2019 Difficulty coping 06/20/2018 06/26/2018 Overview: --social work following for supportive counseling --Zyprexa added for recent depressed mood --mood has improved, gabapentin was DC'd as well daughter recalled patient taking this in the past and having severe depression and suicidal ideation (added to allergies) Hyperkalemia 06/18/2018 2018 Overview: K 5.2, will d/c lisinopril Chemotherapy induced nausea and vomiting 06/18/2018 07/02/2018 Overview: --compazine, Ativan and zofran prn. JOSE ENRIQUE (acute kidney injury) 06/16/2018 Overview: Acute increase of sCr to 1.5 on 06/16, but now down to 1.03 ( at baseline). will monitor at this time, if sCr rises, then will stop lisinopril Bilateral lower extremity edema 06/13/2018 07/17/2018 Overview: --uses 40 lasix po at home as needed --diurese as needed. 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 Leg DVT (deep venous thrombo embolism), acute, left 01/02/2018 11/25/2019 Overview: --acute DVT gastrocnemius found 12/13/2017 --continue apixaban till platelets <50K, last dose 06/21/2018 Adjustment insomnia 12/07/2017 05/14/20 18 Class 1 obesity due to exces s calories with serious comorbidity and body mass index (BMI) of 34.0 to 34.9 in adult 06/26/2017 11/25/2019 Acute bronchitis with chroni c obstructive pulmonary disease (COPD) (HCC) 12/30/2014 7 Venous insufficiency, peripheral 01/06/2014 11/25/2019 Esophagitis, unspecified 09/25/2012 Special screening for malign ant neoplasms, colon 09/06/2012 06/13/2018 Tobacco abuse 12/27/2011 10/01/2012 documented as of this encounter (statuses as of 07/12/2023) [facility] History of Past illness Narrative* Problem Noted Date Diagnosed Date Resolved Date Chest pressure 10/23/2019 11/25/2019 Wheezing 10/23/2019 11/25/2019 Shortness of breath 10/22/2019 11/25/19 20 Overview: Admitted with shortness of breath and fluid retention due to comp,ex history, admitted for management and work-up to determine cardiac causes versus primary pulmonary. He was diuresed with IV lasix, and lost 13 pounds in 3 days. Feels much better able to walk in the hallway few laps. Pulmonary team consulted work-up in progress Cardiac testing including echo, PET negative. Nuclear test to rule out amyloid - neg for cardiac Amyloid. Discussion with pulmonary team: No need for RHC this admission. Recommend repeat echo in 3 to 4 weeks (when euvolemic) and if RVSP is >50 mmhg, will need a right heart cath (pulmonary arterial HTN) Per HF team: Would start spironolactone 12.5, on discharge arrange f/u with Dr. Rosenbaum's office for electrolyte monitoring Can stop carvedilol given no indication (ischemia ruled out, and HFrEF ruled out) - Would not continue imdur on discharge given no indication - Lisinopril can be restarted as an outpatient as needed for HTN if renal function is stable Dr. Mcpherson recommends to resume home dose of 40mg daily. Annie Corrales RN ORTHOTIC TECHNICIAN.[employer] Acute on chronic systolic CH F (congestive heart failure) 10/04/2019 11/25/2019 Fall 07/17/2018 11/25/2019 Difficulty coping 06/20/2018 06/26/2018 Overview: --social work following for supportive counseling --Zyprexa added for recent depressed mood --mood has improved, gabapentin was DC'd as well daughter recalled patient taking this in the past and having severe depression and suicidal ideation (added to allergies) Hyperkalemia 06/18/2018 2018 Overview: K 5.2, will d/c lisinopril Chemotherapy induced nausea and vomiting 06/18/2018 07/02/2018 Overview: --compazine, Ativan and zofran prn. JOSE ENRIQUE (acute kidney injury) 06/16/2018 Overview: Acute increase of sCr to 1.5 on 06/16, but now down to 1.03 ( at baseline). will monitor at this time, if sCr rises, then will stop lisinopril Bilateral lower extremity edema 06/13/2018 07/17/2018 Overview: --uses 40 lasix po at home as needed --diurese as needed. 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 Leg DVT (deep venous thrombo embolism), acute, left 01/02/2018 11/25/2019 Overview: --acute DVT gastrocnemius found 12/13/2017 --continue apixaban till platelets <50K, last dose 06/21/2018 Adjustment insomnia 12/07/2017 05/14/20 18 Class 1 obesity due to exces s calories with serious comorbidity and body mass index (BMI) of 34.0 to 34.9 in adult 06/26/2017 11/25/2019 Acute bronchitis with chroni c obstructive pulmonary disease (COPD) (HCC) 12/30/2014 7 Venous insufficiency, peripheral 01/06/2014 11/25/2019 Esophagitis, unspecified 09/25/2012 Special screening for malign ant neoplasms, colon 09/06/2012 06/13/2018 Tobacco abuse 12/27/2011 10/01/2012 documented as of this encounter (statuses as of 07/20/2023) [facility] History of Past illness Narrative* Problem Noted Date Diagnosed Date Resolved Date Chest pressure 10/23/2019 11/25/2019 Wheezing 10/23/2019 11/25/2019 Shortness of breath 10/22/2019 11/25/19 20 Overview: Admitted with shortness of breath and fluid retention due to comp,ex history, admitted for management and work-up to determine cardiac causes versus primary pulmonary. He was diuresed with IV lasix, and lost 13 pounds in 3 days. Feels much better able to walk in the hallway few laps. Pulmonary team consulted work-up in progress Cardiac testing including echo, PET negative. Nuclear test to rule out amyloid - neg for cardiac Amyloid. Discussion with pulmonary team: No need for RHC this admission. Recommend repeat echo in 3 to 4 weeks (when euvolemic) and if RVSP is >50 mmhg, will need a right heart cath (pulmonary arterial HTN) Per HF team: Would start spironolactone 12.5, on discharge arrange f/u with Dr. Rosenbaum's office for electrolyte monitoring Can stop carvedilol given no indication (ischemia ruled out, and HFrEF ruled out) - Would not continue imdur on discharge given no indication - Lisinopril can be restarted as an outpatient as needed for HTN if renal function is stable Dr. Mcpherson recommends to resume home dose of 40mg daily. Annie Corrales RN ORTHOTIC TECHNICIAN.[employer] Acute on chronic systolic CH F (congestive heart failure) 10/04/2019 11/25/2019 Fall 07/17/2018 11/25/2019 Difficulty coping 06/20/2018 06/26/2018 Overview: --social work following for supportive counseling --Zyprexa added for recent depressed mood --mood has improved, gabapentin was DC'd as well daughter recalled patient taking this in the past and having severe depression and suicidal ideation (added to allergies) Hyperkalemia 06/18/2018 2018 Overview: K 5.2, will d/c lisinopril Chemotherapy induced nausea and vomiting 06/18/2018 07/02/2018 Overview: --compazine, Ativan and zofran prn. JOSE ENRIQUE (acute kidney injury) 06/16/2018 Overview: Acute increase of sCr to 1.5 on 06/16, but now down to 1.03 ( at baseline). will monitor at this time, if sCr rises, then will stop lisinopril Bilateral lower extremity edema 06/13/2018 07/17/2018 Overview: --uses 40 lasix po at home as needed --diurese as needed. 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 Leg DVT (deep venous thrombo embolism), acute, left 01/02/2018 11/25/2019 Overview: --acute DVT gastrocnemius found 12/13/2017 --continue apixaban till platelets <50K, last dose 06/21/2018 Adjustment insomnia 12/07/2017 05/14/20 18 Class 1 obesity due to exces s calories with serious comorbidity and body mass index (BMI) of 34.0 to 34.9 in adult 06/26/2017 11/25/2019 Acute bronchitis with chroni c obstructive pulmonary disease (COPD) 12/30/2014 06/26/2017 Venous insufficiency, peripheral 01/06/2014 11/25/2019 Esophagitis, unspecified 09/25/2012 Special screening for malign ant neoplasms, colon 09/06/2012 06/13/2018 Tobacco abuse 12/27/2011 10/01/2012 documented as of this encounter (statuses as of 07/23/2023) [facility]02-05-2020 History of Past illness Narrative* Problem Noted Date Diagnosed Date Resolved Date Chest pressure 10/23/2019 11/25/2019 Wheezing 10/23/2019 11/25/2019 Shortness of breath 10/22/2019 11/25/19 20 Overview: Admitted with shortness of breath and fluid retention due to comp,ex history, admitted for management and work-up to determine cardiac causes versus primary pulmonary. He was diuresed with IV lasix, and lost 13 pounds in 3 days. Feels much better able to walk in the hallway few laps. Pulmonary team consulted work-up in progress Cardiac testing including echo, PET negative. Nuclear test to rule out amyloid - neg for cardiac Amyloid. Discussion with pulmonary team: No need for RHC this admission. Recommend repeat echo in 3 to 4 weeks (when euvolemic) and if RVSP is >50 mmhg, will need a right heart cath (pulmonary arterial HTN) Per HF team: Would start spironolactone 12.5, on discharge arrange f/u with Dr. Rosenbaum's office for electrolyte monitoring Can stop carvedilol given no indication (ischemia ruled out, and HFrEF ruled out) - Would not continue imdur on discharge given no indication - Lisinopril can be restarted as an outpatient as needed for HTN if renal function is stable Dr. Mcpherson recommends to resume home dose of 40mg daily. Annie Corrales, RN ORTHOTIC TECHNICIAN.[employer] Acute on chronic systolic CH F (congestive heart failure) 10/04/2019 11/25/2019 Fall 07/17/2018 11/25/2019 Difficulty coping 06/20/2018 06/26/2018 Overview: --social work following for supportive counseling --Zyprexa added for recent depressed mood --mood has improved, gabapentin was DC'd as well daughter recalled patient taking this in the past and having severe depression and suicidal ideation (added to allergies) Hyperkalemia 06/18/2018 2018 Overview: K 5.2, will d/c lisinopril Chemotherapy induced nausea and vomiting 06/18/2018 07/02/2018 Overview: --compazine, Ativan and zofran prn. JOSE ENRIQUE (acute kidney injury) 06/16/2018 Overview: Acute increase of sCr to 1.5 on 06/16, but now down to 1.03 ( at baseline). will monitor at this time, if sCr rises, then will stop lisinopril Bilateral lower extremity edema 06/13/2018 07/17/2018 Overview: --uses 40 lasix po at home as needed --diurese as needed. 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 Leg DVT (deep venous thrombo embolism), acute, left 01/02/2018 11/25/2019 Overview: --acute DVT gastrocnemius found 12/13/2017 --continue apixaban till platelets <50K, last dose 06/21/2018 Adjustment insomnia 12/07/2017 05/14/20 18 Class 1 obesity due to exces s calories with serious comorbidity and body mass index (BMI) of 34.0 to 34.9 in adult 06/26/2017 11/25/2019 Acute bronchitis with chroni c obstructive pulmonary disease (COPD) (HCC) 12/30/2014 7 Venous insufficiency, peripheral 01/06/2014 11/25/2019 Esophagitis, unspecified 09/25/2012 Special screening for malign ant neoplasms, colon 09/06/2012 06/13/2018 Tobacco abuse 12/27/2011 10/01/2012 documented as of this encounter (statuses as of 07/26/2023) [facility]2020 History of Past illness Narrative* Problem Noted Date Diagnosed Date Resolved Date Chest pressure 10/23/2019 11/25/2019 Wheezing 10/23/2019 11/25/2019 Shortness of breath 10/22/2019 11/25/19 20 Overview: Admitted with shortness of breath and fluid retention due to comp,ex history, admitted for management and work-up to determine cardiac causes versus primary pulmonary. He was diuresed with IV lasix, and lost 13 pounds in 3 days. Feels much better able to walk in the hallway few laps. Pulmonary team consulted work-up in progress Cardiac testing including echo, PET negative. Nuclear test to rule out amyloid - neg for cardiac Amyloid. Discussion with pulmonary team: No need for RHC this admission. Recommend repeat echo in 3 to 4 weeks (when euvolemic) and if RVSP is >50 mmhg, will need a right heart cath (pulmonary arterial HTN) Per HF team: Would start spironolactone 12.5, on discharge arrange f/u with Dr. Rosenbaum's office for electrolyte monitoring Can stop carvedilol given no indication (ischemia ruled out, and HFrEF ruled out) - Would not continue imdur on discharge given no indication - Lisinopril can be restarted as an outpatient as needed for HTN if renal function is stable Dr. Mcpherson recommends to resume home dose of 40mg daily. Annie Corrales RN ORTHOTIC TECHNICIAN.[employer] Acute on chronic systolic CH F (congestive heart failure) 10/04/2019 11/25/2019 Fall 07/17/2018 11/25/2019 Difficulty coping 06/20/2018 06/26/2018 Overview: --social work following for supportive counseling --Zyprexa added for recent depressed mood --mood has improved, gabapentin was DC'd as well daughter recalled patient taking this in the past and having severe depression and suicidal ideation (added to allergies) Hyperkalemia 06/18/2018 2018 Overview: K 5.2, will d/c lisinopril Chemotherapy induced nausea and vomiting 06/18/2018 07/02/2018 Overview: --compazine, Ativan and zofran prn. JOSE ENRIQUE (acute kidney injury) 06/16/2018 Overview: Acute increase of sCr to 1.5 on 06/16, but now down to 1.03 ( at baseline). will monitor at this time, if sCr rises, then will stop lisinopril Bilateral lower extremity edema 06/13/2018 07/17/2018 Overview: --uses 40 lasix po at home as needed --diurese as needed. 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 Leg DVT (deep venous thrombo embolism), acute, left 01/02/2018 11/25/2019 Overview: --acute DVT gastrocnemius found 12/13/2017 --continue apixaban till platelets <50K, last dose 06/21/2018 Adjustment insomnia 12/07/2017 05/14/20 18 Class 1 obesity due to exces s calories with serious comorbidity and body mass index (BMI) of 34.0 to 34.9 in adult 06/26/2017 11/25/2019 Acute bronchitis with chroni c obstructive pulmonary disease (COPD) (HCC) 12/30/2014 7 Venous insufficiency, peripheral 01/06/2014 11/25/2019 Esophagitis, unspecified 09/25/2012 Special screening for malign ant neoplasms, colon 09/06/2012 06/13/2018 Tobacco abuse 12/27/2011 10/01/2012 documented as of this encounter (statuses as of 07/27/2023) [facility]2020 History of Past illness Narrative* Problem Noted Date Diagnosed Date Resolved Date Chest pressure 10/23/2019 11/25/2019 Wheezing 10/23/2019 11/25/2019 Shortness of breath 10/22/2019 11/25/19 20 Overview: Admitted with shortness of breath and fluid retention due to comp,ex history, admitted for management and work-up to determine cardiac causes versus primary pulmonary. He was diuresed with IV lasix, and lost 13 pounds in 3 days. Feels much better able to walk in the hallway few laps. Pulmonary team consulted work-up in progress Cardiac testing including echo, PET negative. Nuclear test to rule out amyloid - neg for cardiac Amyloid. Discussion with pulmonary team: No need for RHC this admission. Recommend repeat echo in 3 to 4 weeks (when euvolemic) and if RVSP is >50 mmhg, will need a right heart cath (pulmonary arterial HTN) Per HF team: Would start spironolactone 12.5, on discharge arrange f/u with Dr. Rosenbaum's office for electrolyte monitoring Can stop carvedilol given no indication (ischemia ruled out, and HFrEF ruled out) - Would not continue imdur on discharge given no indication - Lisinopril can be restarted as an outpatient as needed for HTN if renal function is stable Dr. Mcpherson recommends to resume home dose of 40mg daily. Annie Corrales RN ORTHOTIC TECHNICIAN.[employer] Acute on chronic systolic CH F (congestive heart failure) 10/04/2019 11/25/2019 Fall 07/17/2018 11/25/2019 Difficulty coping 06/20/2018 06/26/2018 Overview: --social work following for supportive counseling --Zyprexa added for recent depressed mood --mood has improved, gabapentin was DC'd as well daughter recalled patient taking this in the past and having severe depression and suicidal ideation (added to allergies) Hyperkalemia 06/18/2018 2018 Overview: K 5.2, will d/c lisinopril Chemotherapy induced nausea and vomiting 06/18/2018 07/02/2018 Overview: --compazine, Ativan and zofran prn. JOSE ENRIQUE (acute kidney injury) 06/16/2018 Overview: Acute increase of sCr to 1.5 on 06/16, but now down to 1.03 ( at baseline). will monitor at this time, if sCr rises, then will stop lisinopril Bilateral lower extremity edema 06/13/2018 07/17/2018 Overview: --uses 40 lasix po at home as needed --diurese as needed. 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 Leg DVT (deep venous thrombo embolism), acute, left 01/02/2018 11/25/2019 Overview: --acute DVT gastrocnemius found 12/13/2017 --continue apixaban till platelets <50K, last dose 06/21/2018 Adjustment insomnia 12/07/2017 05/14/20 18 Class 1 obesity due to exces s calories with serious comorbidity and body mass index (BMI) of 34.0 to 34.9 in adult 06/26/2017 11/25/2019 Acute bronchitis with chroni c obstructive pulmonary disease (COPD) (HCC) 12/30/2014 7 Venous insufficiency, peripheral 01/06/2014 11/25/2019 Esophagitis, unspecified 09/25/2012 Special screening for malign ant neoplasms, colon 09/06/2012 06/13/2018 Tobacco abuse 12/27/2011 10/01/2012 documented as of this encounter (statuses as of 07/27/2023) [facility]2020 History of Past illness Narrative* Problem Noted Date Diagnosed Date Resolved Date Chest pressure 10/23/2019 11/25/2019 Wheezing 10/23/2019 11/25/2019 Shortness of breath 10/22/2019 11/25/19 20 Overview: Admitted with shortness of breath and fluid retention due to comp,ex history, admitted for management and work-up to determine cardiac causes versus primary pulmonary. He was diuresed with IV lasix, and lost 13 pounds in 3 days. Feels much better able to walk in the hallway few laps. Pulmonary team consulted work-up in progress Cardiac testing including echo, PET negative. Nuclear test to rule out amyloid - neg for cardiac Amyloid. Discussion with pulmonary team: No need for RHC this admission. Recommend repeat echo in 3 to 4 weeks (when euvolemic) and if RVSP is >50 mmhg, will need a right heart cath (pulmonary arterial HTN) Per HF team: Would start spironolactone 12.5, on discharge arrange f/u with Dr. Rosenbaum's office for electrolyte monitoring Can stop carvedilol given no indication (ischemia ruled out, and HFrEF ruled out) - Would not continue imdur on discharge given no indication - Lisinopril can be restarted as an outpatient as needed for HTN if renal function is stable Dr. Mcpherson recommends to resume home dose of 40mg daily. Annie Corrales RN ORTHOTIC TECHNICIAN.[employer] Acute on chronic systolic CH F (congestive heart failure) 10/04/2019 11/25/2019 Fall 07/17/2018 11/25/2019 Difficulty coping 06/20/2018 06/26/2018 Overview: --social work following for supportive counseling --Zyprexa added for recent depressed mood --mood has improved, gabapentin was DC'd as well daughter recalled patient taking this in the past and having severe depression and suicidal ideation (added to allergies) Hyperkalemia 06/18/2018 2018 Overview: K 5.2, will d/c lisinopril Chemotherapy induced nausea and vomiting 06/18/2018 07/02/2018 Overview: --compazine, Ativan and zofran prn. JOSE ENRIQUE (acute kidney injury) 06/16/2018 Overview: Acute increase of sCr to 1.5 on 06/16, but now down to 1.03 ( at baseline). will monitor at this time, if sCr rises, then will stop lisinopril Bilateral lower extremity edema 06/13/2018 07/17/2018 Overview: --uses 40 lasix po at home as needed --diurese as needed. 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 Leg DVT (deep venous thrombo embolism), acute, left 01/02/2018 11/25/2019 Overview: --acute DVT gastrocnemius found 12/13/2017 --continue apixaban till platelets <50K, last dose 06/21/2018 Adjustment insomnia 12/07/2017 05/14/20 18 Class 1 obesity due to exces s calories with serious comorbidity and body mass index (BMI) of 34.0 to 34.9 in adult 06/26/2017 11/25/2019 Acute bronchitis with chroni c obstructive pulmonary disease (COPD) (HCC) 12/30/2014 7 Venous insufficiency, peripheral 01/06/2014 11/25/2019 Esophagitis, unspecified 09/25/2012 Special screening for malign ant neoplasms, colon 09/06/2012 06/13/2018 Tobacco abuse 12/27/2011 10/01/2012 documented as of this encounter (statuses as of 07/27/2023) [facility]2020 History of Past illness Narrative* Problem Noted Date Diagnosed Date Resolved Date Chest pressure 10/23/2019 11/25/2019 Wheezing 10/23/2019 11/25/2019 Shortness of breath 10/22/2019 11/25/19 20 Overview: Admitted with shortness of breath and fluid retention due to comp,ex history, admitted for management and work-up to determine cardiac causes versus primary pulmonary. He was diuresed with IV lasix, and lost 13 pounds in 3 days. Feels much better able to walk in the hallway few laps. Pulmonary team consulted work-up in progress Cardiac testing including echo, PET negative. Nuclear test to rule out amyloid - neg for cardiac Amyloid. Discussion with pulmonary team: No need for RHC this admission. Recommend repeat echo in 3 to 4 weeks (when euvolemic) and if RVSP is >50 mmhg, will need a right heart cath (pulmonary arterial HTN) Per HF team: Would start spironolactone 12.5, on discharge arrange f/u with Dr. Rosenbaum's office for electrolyte monitoring Can stop carvedilol given no indication (ischemia ruled out, and HFrEF ruled out) - Would not continue imdur on discharge given no indication - Lisinopril can be restarted as an outpatient as needed for HTN if renal function is stable Dr. Mcpherson recommends to resume home dose of 40mg daily. Annie Corrales, RN ORTHOTIC TECHNICIAN.[employer] Acute on chronic systolic CH F (congestive heart failure) 10/04/2019 11/25/2019 Fall 07/17/2018 11/25/2019 Difficulty coping 06/20/2018 06/26/2018 Overview: --social work following for supportive counseling --Zyprexa added for recent depressed mood --mood has improved, gabapentin was DC'd as well daughter recalled patient taking this in the past and having severe depression and suicidal ideation (added to allergies) Hyperkalemia 06/18/2018 2018 Overview: K 5.2, will d/c lisinopril Chemotherapy induced nausea and vomiting 06/18/2018 07/02/2018 Overview: --compazine, Ativan and zofran prn. JOSE ENRIQUE (acute kidney injury) 06/16/2018 Overview: Acute increase of sCr to 1.5 on 06/16, but now down to 1.03 ( at baseline). will monitor at this time, if sCr rises, then will stop lisinopril Bilateral lower extremity edema 06/13/2018 07/17/2018 Overview: --uses 40 lasix po at home as needed --diurese as needed. 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 Leg DVT (deep venous thrombo embolism), acute, left 01/02/2018 11/25/2019 Overview: --acute DVT gastrocnemius found 12/13/2017 --continue apixaban till platelets <50K, last dose 06/21/2018 Adjustment insomnia 12/07/2017 05/14/20 18 Class 1 obesity due to exces s calories with serious comorbidity and body mass index (BMI) of 34.0 to 34.9 in adult 06/26/2017 11/25/2019 Acute bronchitis with chroni c obstructive pulmonary disease (COPD) (HCC) 12/30/2014 7 Venous insufficiency, peripheral 01/06/2014 11/25/2019 Esophagitis, unspecified 09/25/2012 Special screening for malign ant neoplasms, colon 09/06/2012 06/13/2018 Tobacco abuse 12/27/2011 10/01/2012 documented as of this encounter (statuses as of 08/01/2023) [facility]2020 History of Past illness Narrative* Problem Noted Date Diagnosed Date Resolved Date Chest pressure 10/23/2019 11/25/2019 Wheezing 10/23/2019 11/25/2019 Shortness of breath 10/22/2019 11/25/19 20 Overview: Admitted with shortness of breath and fluid retention due to comp,ex history, admitted for management and work-up to determine cardiac causes versus primary pulmonary. He was diuresed with IV lasix, and lost 13 pounds in 3 days. Feels much better able to walk in the hallway few laps. Pulmonary team consulted work-up in progress Cardiac testing including echo, PET negative. Nuclear test to rule out amyloid - neg for cardiac Amyloid. Discussion with pulmonary team: No need for RHC this admission. Recommend repeat echo in 3 to 4 weeks (when euvolemic) and if RVSP is >50 mmhg, will need a right heart cath (pulmonary arterial HTN) Per HF team: Would start spironolactone 12.5, on discharge arrange f/u with Dr. Rosenbaum's office for electrolyte monitoring Can stop carvedilol given no indication (ischemia ruled out, and HFrEF ruled out) - Would not continue imdur on discharge given no indication - Lisinopril can be restarted as an outpatient as needed for HTN if renal function is stable Dr. Mcpherson recommends to resume home dose of 40mg daily. Annie Corrales RN ORTHOTIC TECHNICIAN.[employer] Acute on chronic systolic CH F (congestive heart failure) 10/04/2019 11/25/2019 Fall 07/17/2018 11/25/2019 Difficulty coping 06/20/2018 06/26/2018 Overview: --social work following for supportive counseling --Zyprexa added for recent depressed mood --mood has improved, gabapentin was DC'd as well daughter recalled patient taking this in the past and having severe depression and suicidal ideation (added to allergies) Hyperkalemia 06/18/2018 2018 Overview: K 5.2, will d/c lisinopril Chemotherapy induced nausea and vomiting 06/18/2018 07/02/2018 Overview: --compazine, Ativan and zofran prn. JOSE ENRIQUE (acute kidney injury) 06/16/2018 Overview: Acute increase of sCr to 1.5 on 06/16, but now down to 1.03 ( at baseline). will monitor at this time, if sCr rises, then will stop lisinopril Bilateral lower extremity edema 06/13/2018 07/17/2018 Overview: --uses 40 lasix po at home as needed --diurese as needed. 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 Leg DVT (deep venous thrombo embolism), acute, left 01/02/2018 11/25/2019 Overview: --acute DVT gastrocnemius found 12/13/2017 --continue apixaban till platelets <50K, last dose 06/21/2018 Adjustment insomnia 12/07/2017 05/14/20 18 Class 1 obesity due to exces s calories with serious comorbidity and body mass index (BMI) of 34.0 to 34.9 in adult 06/26/2017 11/25/2019 Acute bronchitis with chroni c obstructive pulmonary disease (COPD) (HCC) 12/30/2014 7 Venous insufficiency, peripheral 01/06/2014 11/25/2019 Esophagitis, unspecified 09/25/2012 Special screening for malign ant neoplasms, colon 09/06/2012 06/13/2018 Tobacco abuse 12/27/2011 10/01/2012 documented as of this encounter (statuses as of 08/01/2023) [facility] History of Past illness Narrative* Problem Noted Date Diagnosed Date Resolved Date Chest pressure 10/23/2019 11/25/2019 Wheezing 10/23/2019 11/25/2019 Shortness of breath 10/22/2019 11/25/19 20 Overview: Admitted with shortness of breath and fluid retention due to comp,ex history, admitted for management and work-up to determine cardiac causes versus primary pulmonary. He was diuresed with IV lasix, and lost 13 pounds in 3 days. Feels much better able to walk in the hallway few laps. Pulmonary team consulted work-up in progress Cardiac testing including echo, PET negative. Nuclear test to rule out amyloid - neg for cardiac Amyloid. Discussion with pulmonary team: No need for RHC this admission. Recommend repeat echo in 3 to 4 weeks (when euvolemic) and if RVSP is >50 mmhg, will need a right heart cath (pulmonary arterial HTN) Per HF team: Would start spironolactone 12.5, on discharge arrange f/u with Dr. Rosenbaum's office for electrolyte monitoring Can stop carvedilol given no indication (ischemia ruled out, and HFrEF ruled out) - Would not continue imdur on discharge given no indication - Lisinopril can be restarted as an outpatient as needed for HTN if renal function is stable Dr. Mcpherson recommends to resume home dose of 40mg daily. Annie Corrales RN ORTHOTIC TECHNICIAN.[employer] Acute on chronic systolic CH F (congestive heart failure) 10/04/2019 11/25/2019 Fall 07/17/2018 11/25/2019 Difficulty coping 06/20/2018 06/26/2018 Overview: --social work following for supportive counseling --Zyprexa added for recent depressed mood --mood has improved, gabapentin was DC'd as well daughter recalled patient taking this in the past and having severe depression and suicidal ideation (added to allergies) Hyperkalemia 06/18/2018 2018 Overview: K 5.2, will d/c lisinopril Chemotherapy induced nausea and vomiting 06/18/2018 07/02/2018 Overview: --compazine, Ativan and zofran prn. JOSE ENRIQUE (acute kidney injury) 06/16/2018 Overview: Acute increase of sCr to 1.5 on 06/16, but now down to 1.03 ( at baseline). will monitor at this time, if sCr rises, then will stop lisinopril Bilateral lower extremity edema 06/13/2018 07/17/2018 Overview: --uses 40 lasix po at home as needed --diurese as needed. 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 Leg DVT (deep venous thrombo embolism), acute, left 01/02/2018 11/25/2019 Overview: --acute DVT gastrocnemius found 12/13/2017 --continue apixaban till platelets <50K, last dose 06/21/2018 Adjustment insomnia 12/07/2017 05/14/20 18 Class 1 obesity due to exces s calories with serious comorbidity and body mass index (BMI) of 34.0 to 34.9 in adult 06/26/2017 11/25/2019 Acute bronchitis with chroni c obstructive pulmonary disease (COPD) (HCC) 12/30/2014 7 Venous insufficiency, peripheral 01/06/2014 11/25/2019 Esophagitis, unspecified 09/25/2012 Special screening for malign ant neoplasms, colon 09/06/2012 06/13/2018 Tobacco abuse 12/27/2011 10/01/2012 documented as of this encounter (statuses as of 08/03/2023) [facility] History of Past illness Narrative* Problem Noted Date Diagnosed Date Resolved Date Chest pressure 10/23/2019 11/25/2019 Wheezing 10/23/2019 11/25/2019 Shortness of breath 10/22/2019 11/25/19 20 Overview: Admitted with shortness of breath and fluid retention due to comp,ex history, admitted for management and work-up to determine cardiac causes versus primary pulmonary. He was diuresed with IV lasix, and lost 13 pounds in 3 days. Feels much better able to walk in the hallway few laps. Pulmonary team consulted work-up in progress Cardiac testing including echo, PET negative. Nuclear test to rule out amyloid - neg for cardiac Amyloid. Discussion with pulmonary team: No need for RHC this admission. Recommend repeat echo in 3 to 4 weeks (when euvolemic) and if RVSP is >50 mmhg, will need a right heart cath (pulmonary arterial HTN) Per HF team: Would start spironolactone 12.5, on discharge arrange f/u with Dr. Rosenbaum's office for electrolyte monitoring Can stop carvedilol given no indication (ischemia ruled out, and HFrEF ruled out) - Would not continue imdur on discharge given no indication - Lisinopril can be restarted as an outpatient as needed for HTN if renal function is stable Dr. Mcpherson recommends to resume home dose of 40mg daily. Annie Corrales RN ORTHOTIC TECHNICIAN.[employer] Acute on chronic systolic CH F (congestive heart failure) 10/04/2019 11/25/2019 Fall 07/17/2018 11/25/2019 Difficulty coping 06/20/2018 06/26/2018 Overview: --social work following for supportive counseling --Zyprexa added for recent depressed mood --mood has improved, gabapentin was DC'd as well daughter recalled patient taking this in the past and having severe depression and suicidal ideation (added to allergies) Hyperkalemia 06/18/2018 2018 Overview: K 5.2, will d/c lisinopril Chemotherapy induced nausea and vomiting 06/18/2018 07/02/2018 Overview: --compazine, Ativan and zofran prn. JOSE ENRIQUE (acute kidney injury) 06/16/2018 Overview: Acute increase of sCr to 1.5 on 06/16, but now down to 1.03 ( at baseline). will monitor at this time, if sCr rises, then will stop lisinopril Bilateral lower extremity edema 06/13/2018 07/17/2018 Overview: --uses 40 lasix po at home as needed --diurese as needed. 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 Leg DVT (deep venous thrombo embolism), acute, left 01/02/2018 11/25/2019 Overview: --acute DVT gastrocnemius found 12/13/2017 --continue apixaban till platelets <50K, last dose 06/21/2018 Adjustment insomnia 12/07/2017 05/14/20 18 Class 1 obesity due to exces s calories with serious comorbidity and body mass index (BMI) of 34.0 to 34.9 in adult 06/26/2017 11/25/2019 Acute bronchitis with chroni c obstructive pulmonary disease (COPD) 12/30/2014 06/26/2017 Venous insufficiency, peripheral 01/06/2014 11/25/2019 Esophagitis, unspecified 09/25/2012 Special screening for malign ant neoplasms, colon 09/06/2012 06/13/2018 Tobacco abuse 12/27/2011 10/01/2012 documented as of this encounter (statuses as of 08/09/2023) [facility]02-[facility]-2020 History of Past illness Narrative* Problem Noted Date Diagnosed Date Resolved Date Chest pressure 10/23/2019 11/25/2019 Wheezing 10/23/2019 11/25/2019 Shortness of breath 10/22/2019 11/25/19 20 Overview: Admitted with shortness of breath and fluid retention due to comp,ex history, admitted for management and work-up to determine cardiac causes versus primary pulmonary. He was diuresed with IV lasix, and lost 13 pounds in 3 days. Feels much better able to walk in the hallway few laps. Pulmonary team consulted work-up in progress Cardiac testing including echo, PET negative. Nuclear test to rule out amyloid - neg for cardiac Amyloid. Discussion with pulmonary team: No need for RHC this admission. Recommend repeat echo in 3 to 4 weeks (when euvolemic) and if RVSP is >50 mmhg, will need a right heart cath (pulmonary arterial HTN) Per HF team: Would start spironolactone 12.5, on discharge arrange f/u with Dr. Rosenbaum's office for electrolyte monitoring Can stop carvedilol given no indication (ischemia ruled out, and HFrEF ruled out) - Would not continue imdur on discharge given no indication - Lisinopril can be restarted as an outpatient as needed for HTN if renal function is stable Dr. Mcpherson recommends to resume home dose of 40mg daily. Annie Corrales, RN ORTHOTIC TECHNICIAN.[employer] Acute on chronic systolic CH F (congestive heart failure) 10/04/2019 11/25/2019 Fall 07/17/2018 11/25/2019 Difficulty coping 06/20/2018 06/26/2018 Overview: --social work following for supportive counseling --Zyprexa added for recent depressed mood --mood has improved, gabapentin was DC'd as well daughter recalled patient taking this in the past and having severe depression and suicidal ideation (added to allergies) Hyperkalemia 06/18/2018 2018 Overview: K 5.2, will d/c lisinopril Chemotherapy induced nausea and vomiting 06/18/2018 07/02/2018 Overview: --compazine, Ativan and zofran prn. JOSE ENRIQUE (acute kidney injury) 06/16/2018 Overview: Acute increase of sCr to 1.5 on 06/16, but now down to 1.03 ( at baseline). will monitor at this time, if sCr rises, then will stop lisinopril Bilateral lower extremity edema 06/13/2018 07/17/2018 Overview: --uses 40 lasix po at home as needed --diurese as needed. 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 Leg DVT (deep venous thrombo embolism), acute, left 01/02/2018 11/25/2019 Overview: --acute DVT gastrocnemius found 12/13/2017 --continue apixaban till platelets <50K, last dose 06/21/2018 Adjustment insomnia 12/07/2017 05/14/20 18 Class 1 obesity due to exces s calories with serious comorbidity and body mass index (BMI) of 34.0 to 34.9 in adult 06/26/2017 11/25/2019 Acute bronchitis with chroni c obstructive pulmonary disease (COPD) (HCC) 12/30/2014 7 Venous insufficiency, peripheral 01/06/2014 11/25/2019 Esophagitis, unspecified 09/25/2012 Special screening for malign ant neoplasms, colon 09/06/2012 06/13/2018 Tobacco abuse 12/27/2011 10/01/2012 documented as of this encounter (statuses as of 08/19/2023) [facility]2020 History of Past illness Narrative* Problem Noted Date Diagnosed Date Resolved Date Chest pressure 10/23/2019 11/25/2019 Wheezing 10/23/2019 11/25/2019 Shortness of breath 10/22/2019 11/25/19 20 Overview: Admitted with shortness of breath and fluid retention due to comp,ex history, admitted for management and work-up to determine cardiac causes versus primary pulmonary. He was diuresed with IV lasix, and lost 13 pounds in 3 days. Feels much better able to walk in the hallway few laps. Pulmonary team consulted work-up in progress Cardiac testing including echo, PET negative. Nuclear test to rule out amyloid - neg for cardiac Amyloid. Discussion with pulmonary team: No need for RHC this admission. Recommend repeat echo in 3 to 4 weeks (when euvolemic) and if RVSP is >50 mmhg, will need a right heart cath (pulmonary arterial HTN) Per HF team: Would start spironolactone 12.5, on discharge arrange f/u with Dr. Rosenbaum's office for electrolyte monitoring Can stop carvedilol given no indication (ischemia ruled out, and HFrEF ruled out) - Would not continue imdur on discharge given no indication - Lisinopril can be restarted as an outpatient as needed for HTN if renal function is stable Dr. Mcpherson recommends to resume home dose of 40mg daily. Annie Corrales RN ORTHOTIC TECHNICIAN.[employer] Acute on chronic systolic CH F (congestive heart failure) 10/04/2019 11/25/2019 Fall 07/17/2018 11/25/2019 Difficulty coping 06/20/2018 06/26/2018 Overview: --social work following for supportive counseling --Zyprexa added for recent depressed mood --mood has improved, gabapentin was DC'd as well daughter recalled patient taking this in the past and having severe depression and suicidal ideation (added to allergies) Hyperkalemia 06/18/2018 2018 Overview: K 5.2, will d/c lisinopril Chemotherapy induced nausea and vomiting 06/18/2018 07/02/2018 Overview: --compazine, Ativan and zofran prn. JOSE ENRIQUE (acute kidney injury) 06/16/2018 Overview: Acute increase of sCr to 1.5 on 06/16, but now down to 1.03 ( at baseline). will monitor at this time, if sCr rises, then will stop lisinopril Bilateral lower extremity edema 06/13/2018 07/17/2018 Overview: --uses 40 lasix po at home as needed --diurese as needed. 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 Leg DVT (deep venous thrombo embolism), acute, left 01/02/2018 11/25/2019 Overview: --acute DVT gastrocnemius found 12/13/2017 --continue apixaban till platelets <50K, last dose 06/21/2018 Adjustment insomnia 12/07/2017 05/14/20 18 Class 1 obesity due to exces s calories with serious comorbidity and body mass index (BMI) of 34.0 to 34.9 in adult 06/26/2017 11/25/2019 Acute bronchitis with chroni c obstructive pulmonary disease (COPD) (HCC) 12/30/2014 7 Venous insufficiency, peripheral 01/06/2014 11/25/2019 Esophagitis, unspecified 09/25/2012 Special screening for malign ant neoplasms, colon 09/06/2012 06/13/2018 Tobacco abuse 12/27/2011 10/01/2012 documented as of this encounter (statuses as of 08/21/2023) [facility]2020 History of Past illness Narrative* Problem Noted Date Diagnosed Date Resolved Date Chest pressure 10/23/2019 11/25/2019 Wheezing 10/23/2019 11/25/2019 Shortness of breath 10/22/2019 11/25/19 20 Overview: Admitted with shortness of breath and fluid retention due to comp,ex history, admitted for management and work-up to determine cardiac causes versus primary pulmonary. He was diuresed with IV lasix, and lost 13 pounds in 3 days. Feels much better able to walk in the hallway few laps. Pulmonary team consulted work-up in progress Cardiac testing including echo, PET negative. Nuclear test to rule out amyloid - neg for cardiac Amyloid. Discussion with pulmonary team: No need for RHC this admission. Recommend repeat echo in 3 to 4 weeks (when euvolemic) and if RVSP is >50 mmhg, will need a right heart cath (pulmonary arterial HTN) Per HF team: Would start spironolactone 12.5, on discharge arrange f/u with Dr. Rosenbaum's office for electrolyte monitoring Can stop carvedilol given no indication (ischemia ruled out, and HFrEF ruled out) - Would not continue imdur on discharge given no indication - Lisinopril can be restarted as an outpatient as needed for HTN if renal function is stable Dr. Mcpherson recommends to resume home dose of 40mg daily. Annie Corrales RN ORTHOTIC TECHNICIAN.[employer] Acute on chronic systolic CH F (congestive heart failure) 10/04/2019 11/25/2019 Fall 07/17/2018 11/25/2019 Difficulty coping 06/20/2018 06/26/2018 Overview: --social work following for supportive counseling --Zyprexa added for recent depressed mood --mood has improved, gabapentin was DC'd as well daughter recalled patient taking this in the past and having severe depression and suicidal ideation (added to allergies) Hyperkalemia 06/18/2018 2018 Overview: K 5.2, will d/c lisinopril Chemotherapy induced nausea and vomiting 06/18/2018 07/02/2018 Overview: --compazine, Ativan and zofran prn. JOSE ENRIQUE (acute kidney injury) 06/16/2018 Overview: Acute increase of sCr to 1.5 on 06/16, but now down to 1.03 ( at baseline). will monitor at this time, if sCr rises, then will stop lisinopril Bilateral lower extremity edema 06/13/2018 07/17/2018 Overview: --uses 40 lasix po at home as needed --diurese as needed. 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 Leg DVT (deep venous thrombo embolism), acute, left 01/02/2018 11/25/2019 Overview: --acute DVT gastrocnemius found 12/13/2017 --continue apixaban till platelets <50K, last dose 06/21/2018 Adjustment insomnia 12/07/2017 05/14/20 18 Class 1 obesity due to exces s calories with serious comorbidity and body mass index (BMI) of 34.0 to 34.9 in adult 06/26/2017 11/25/2019 Acute bronchitis with chroni c obstructive pulmonary disease (COPD) (HCC) 12/30/2014 7 Venous insufficiency, peripheral 01/06/2014 11/25/2019 Esophagitis, unspecified 09/25/2012 Special screening for malign ant neoplasms, colon 09/06/2012 06/13/2018 Tobacco abuse 12/27/2011 10/01/2012 documented as of this encounter (statuses as of 09/19/2023) [facility]2020 History of Past illness Narrative* Problem Noted Date Diagnosed Date Resolved Date Chest pressure 10/23/2019 11/25/2019 Wheezing 10/23/2019 11/25/2019 Shortness of breath 10/22/2019 11/25/19 20 Overview: Admitted with shortness of breath and fluid retention due to comp,ex history, admitted for management and work-up to determine cardiac causes versus primary pulmonary. He was diuresed with IV lasix, and lost 13 pounds in 3 days. Feels much better able to walk in the hallway few laps. Pulmonary team consulted work-up in progress Cardiac testing including echo, PET negative. Nuclear test to rule out amyloid - neg for cardiac Amyloid. Discussion with pulmonary team: No need for RHC this admission. Recommend repeat echo in 3 to 4 weeks (when euvolemic) and if RVSP is >50 mmhg, will need a right heart cath (pulmonary arterial HTN) Per HF team: Would start spironolactone 12.5, on discharge arrange f/u with Dr. Rosenbaum's office for electrolyte monitoring Can stop carvedilol given no indication (ischemia ruled out, and HFrEF ruled out) - Would not continue imdur on discharge given no indication - Lisinopril can be restarted as an outpatient as needed for HTN if renal function is stable Dr. Mcpherson recommends to resume home dose of 40mg daily. Annie Corrales, ALICIA ORTHOTIC TECHNICIAN.[employer] Acute on chronic systolic CH F (congestive heart failure) 10/04/2019 11/25/2019 Fall 07/17/2018 11/25/2019 Difficulty coping 06/20/2018 06/26/2018 Overview: --social work following for supportive counseling --Zyprexa added for recent depressed mood --mood has improved, gabapentin was DC'd as well daughter recalled patient taking this in the past and having severe depression and suicidal ideation (added to allergies) Hyperkalemia 06/18/2018 2018 Overview: K 5.2, will d/c lisinopril Chemotherapy induced nausea and vomiting 06/18/2018 07/02/2018 Overview: --compazine, Ativan and zofran prn. JOSE ENRIQUE (acute kidney injury) 06/16/2018 Overview: Acute increase of sCr to 1.5 on 06/16, but now down to 1.03 ( at baseline). will monitor at this time, if sCr rises, then will stop lisinopril Bilateral lower extremity edema 06/13/2018 07/17/2018 Overview: --uses 40 lasix po at home as needed --diurese as needed. 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 Leg DVT (deep venous thrombo embolism), acute, left 01/02/2018 11/25/2019 Overview: --acute DVT gastrocnemius found 12/13/2017 --continue apixaban till platelets <50K, last dose 06/21/2018 Adjustment insomnia 12/07/2017 05/14/20 18 Class 1 obesity due to exces s calories with serious comorbidity and body mass index (BMI) of 34.0 to 34.9 in adult 06/26/2017 11/25/2019 Acute bronchitis with chroni c obstructive pulmonary disease (COPD) ([facility]) 12/30/2014 7 Venous insufficiency, peripheral 01/06/2014 11/25/2019 Esophagitis, unspecified 09/25/2012 Special screening for malign ant neoplasms, colon 09/06/2012 06/13/2018 Tobacco abuse 12/27/2011 10/01/2012 documented as of this encounter (statuses as of 10/27/2023) [facility]2020 History of Past illness Narrative* Problem Noted Date Diagnosed Date Resolved Date Chest pressure 10/23/2019 11/25/2019 Wheezing 10/23/2019 11/25/2019 Shortness of breath 10/22/2019 11/25/19 20 Overview: Admitted with shortness of breath and fluid retention due to comp,ex history, admitted for management and work-up to determine cardiac causes versus primary pulmonary. He was diuresed with IV lasix, and lost 13 pounds in 3 days. Feels much better able to walk in the hallway few laps. Pulmonary team consulted work-up in progress Cardiac testing including echo, PET negative. Nuclear test to rule out amyloid - neg for cardiac Amyloid. Discussion with pulmonary team: No need for RHC this admission. Recommend repeat echo in 3 to 4 weeks (when euvolemic) and if RVSP is >50 mmhg, will need a right heart cath (pulmonary arterial HTN) Per HF team: Would start spironolactone 12.5, on discharge arrange f/u with Dr. Rosenbaum's office for electrolyte monitoring Can stop carvedilol given no indication (ischemia ruled out, and HFrEF ruled out) - Would not continue imdur on discharge given no indication - Lisinopril can be restarted as an outpatient as needed for HTN if renal function is stable Dr. Mcpherson recommends to resume home dose of 40mg daily. Annie Corrales, RN ORTHOTIC TECHNICIAN.[employer] Acute on chronic systolic CH F (congestive heart failure) 10/04/2019 11/25/2019 Fall 07/17/2018 11/25/2019 Difficulty coping 06/20/2018 06/26/2018 Overview: --social work following for supportive counseling --Zyprexa added for recent depressed mood --mood has improved, gabapentin was DC'd as well daughter recalled patient taking this in the past and having severe depression and suicidal ideation (added to allergies) Hyperkalemia 06/18/2018 2018 Overview: K 5.2, will d/c lisinopril Chemotherapy induced nausea and vomiting 06/18/2018 07/02/2018 Overview: --compazine, Ativan and zofran prn. JOSE ENRIQUE (acute kidney injury) 06/16/2018 Overview: Acute increase of sCr to 1.5 on 06/16, but now down to 1.03 ( at baseline). will monitor at this time, if sCr rises, then will stop lisinopril Bilateral lower extremity edema 06/13/2018 07/17/2018 Overview: --uses 40 lasix po at home as needed --diurese as needed. 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 Leg DVT (deep venous thrombo embolism), acute, left 01/02/2018 11/25/2019 Overview: --acute DVT gastrocnemius found 12/13/2017 --continue apixaban till platelets <50K, last dose 06/21/2018 Adjustment insomnia 12/07/2017 05/14/20 18 Class 1 obesity due to exces s calories with serious comorbidity and body mass index (BMI) of 34.0 to 34.9 in adult 06/26/2017 11/25/2019 Acute bronchitis with chroni c obstructive pulmonary disease (COPD) (HCC) 12/30/2014 7 Venous insufficiency, peripheral 01/06/2014 11/25/2019 Esophagitis, unspecified 09/25/2012 Special screening for malign ant neoplasms, colon 09/06/2012 06/13/2018 Tobacco abuse 12/27/2011 10/01/2012 documented as of this encounter (statuses as of 11/01/2023) [facility]2020 History of Past illness Narrative* Problem Noted Date Diagnosed Date Resolved Date Chest pressure 10/23/2019 11/25/2019 Wheezing 10/23/2019 11/25/2019 Shortness of breath 10/22/2019 11/25/19 20 Overview: Admitted with shortness of breath and fluid retention due to comp,ex history, admitted for management and work-up to determine cardiac causes versus primary pulmonary. He was diuresed with IV lasix, and lost 13 pounds in 3 days. Feels much better able to walk in the hallway few laps. Pulmonary team consulted work-up in progress Cardiac testing including echo, PET negative. Nuclear test to rule out amyloid - neg for cardiac Amyloid. Discussion with pulmonary team: No need for RHC this admission. Recommend repeat echo in 3 to 4 weeks (when euvolemic) and if RVSP is >50 mmhg, will need a right heart cath (pulmonary arterial HTN) Per HF team: Would start spironolactone 12.5, on discharge arrange f/u with Dr. Rosenbaum's office for electrolyte monitoring Can stop carvedilol given no indication (ischemia ruled out, and HFrEF ruled out) - Would not continue imdur on discharge given no indication - Lisinopril can be restarted as an outpatient as needed for HTN if renal function is stable Dr. Mcpherson recommends to resume home dose of 40mg daily. Annie Corrales RN ORTHOTIC TECHNICIAN.[employer] Acute on chronic systolic CH F (congestive heart failure) 10/04/2019 11/25/2019 Fall 07/17/2018 11/25/2019 Difficulty coping 06/20/2018 06/26/2018 Overview: --social work following for supportive counseling --Zyprexa added for recent depressed mood --mood has improved, gabapentin was DC'd as well daughter recalled patient taking this in the past and having severe depression and suicidal ideation (added to allergies) Hyperkalemia 06/18/2018 2018 Overview: K 5.2, will d/c lisinopril Chemotherapy induced nausea and vomiting 06/18/2018 07/02/2018 Overview: --compazine, Ativan and zofran prn. JOSE ENRIQUE (acute kidney injury) 06/16/2018 Overview: Acute increase of sCr to 1.5 on 06/16, but now down to 1.03 ( at baseline). will monitor at this time, if sCr rises, then will stop lisinopril Bilateral lower extremity edema 06/13/2018 07/17/2018 Overview: --uses 40 lasix po at home as needed --diurese as needed. 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 Leg DVT (deep venous thrombo embolism), acute, left 01/02/2018 11/25/2019 Overview: --acute DVT gastrocnemius found 12/13/2017 --continue apixaban till platelets <50K, last dose 06/21/2018 Adjustment insomnia 12/07/2017 05/14/20 18 Class 1 obesity due to exces s calories with serious comorbidity and body mass index (BMI) of 34.0 to 34.9 in adult 06/26/2017 11/25/2019 Acute bronchitis with chroni c obstructive pulmonary disease (COPD) (HCC) 12/30/2014 7 Venous insufficiency, peripheral 01/06/2014 11/25/2019 Esophagitis, unspecified 09/25/2012 Special screening for malign ant neoplasms, colon 09/06/2012 06/13/2018 Tobacco abuse 12/27/2011 10/01/2012 documented as of this encounter (statuses as of 11/06/2023) [facility] History of Past illness Narrative* Problem Noted Date Diagnosed Date Resolved Date Chest pressure 10/23/2019 11/25/2019 Wheezing 10/23/2019 11/25/2019 Shortness of breath 10/22/2019 11/25/19 20 Overview: Admitted with shortness of breath and fluid retention due to comp,ex history, admitted for management and work-up to determine cardiac causes versus primary pulmonary. He was diuresed with IV lasix, and lost 13 pounds in 3 days. Feels much better able to walk in the hallway few laps. Pulmonary team consulted work-up in progress Cardiac testing including echo, PET negative. Nuclear test to rule out amyloid - neg for cardiac Amyloid. Discussion with pulmonary team: No need for RHC this admission. Recommend repeat echo in 3 to 4 weeks (when euvolemic) and if RVSP is >50 mmhg, will need a right heart cath (pulmonary arterial HTN) Per HF team: Would start spironolactone 12.5, on discharge arrange f/u with Dr. Rosenbaum's office for electrolyte monitoring Can stop carvedilol given no indication (ischemia ruled out, and HFrEF ruled out) - Would not continue imdur on discharge given no indication - Lisinopril can be restarted as an outpatient as needed for HTN if renal function is stable Dr. Mcpherson recommends to resume home dose of 40mg daily. Annie Corrales, RN ORTHOTIC TECHNICIAN.[employer] Acute on chronic systolic CH F (congestive heart failure) 10/04/2019 11/25/2019 Fall 07/17/2018 11/25/2019 Difficulty coping 06/20/2018 06/26/2018 Overview: --social work following for supportive counseling --Zyprexa added for recent depressed mood --mood has improved, gabapentin was DC'd as well daughter recalled patient taking this in the past and having severe depression and suicidal ideation (added to allergies) Hyperkalemia 06/18/2018 2018 Overview: K 5.2, will d/c lisinopril Chemotherapy induced nausea and vomiting 06/18/2018 07/02/2018 Overview: --compazine, Ativan and zofran prn. JOSE ENRIQUE (acute kidney injury) 06/16/2018 Overview: Acute increase of sCr to 1.5 on 06/16, but now down to 1.03 ( at baseline). will monitor at this time, if sCr rises, then will stop lisinopril Bilateral lower extremity edema 06/13/2018 07/17/2018 Overview: --uses 40 lasix po at home as needed --diurese as needed. 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 Leg DVT (deep venous thrombo embolism), acute, left 01/02/2018 11/25/2019 Overview: --acute DVT gastrocnemius found 12/13/2017 --continue apixaban till platelets <50K, last dose 06/21/2018 Adjustment insomnia 12/07/2017 05/14/20 18 Class 1 obesity due to exces s calories with serious comorbidity and body mass index (BMI) of 34.0 to 34.9 in adult 06/26/2017 11/25/2019 Acute bronchitis with chroni c obstructive pulmonary disease (COPD) ([facility]) 12/30/2014 7 Venous insufficiency, peripheral 01/06/2014 11/25/2019 Esophagitis, unspecified 09/25/2012 Special screening for malign ant neoplasms, colon 09/06/2012 06/13/2018 Tobacco abuse 12/27/2011 10/01/2012 documented as of this encounter (statuses as of 11/23/2023) [facility] History of Past illness Narrative* Problem Noted Date Diagnosed Date Resolved Date Chest pressure 10/23/2019 11/25/2019 Wheezing 10/23/2019 11/25/2019 Shortness of breath 10/22/2019 11/25/19 20 Overview: Admitted with shortness of breath and fluid retention due to comp,ex history, admitted for management and work-up to determine cardiac causes versus primary pulmonary. He was diuresed with IV lasix, and lost 13 pounds in 3 days. Feels much better able to walk in the hallway few laps. Pulmonary team consulted work-up in progress Cardiac testing including echo, PET negative. Nuclear test to rule out amyloid - neg for cardiac Amyloid. Discussion with pulmonary team: No need for RHC this admission. Recommend repeat echo in 3 to 4 weeks (when euvolemic) and if RVSP is >50 mmhg, will need a right heart cath (pulmonary arterial HTN) Per HF team: Would start spironolactone 12.5, on discharge arrange f/u with Dr. Rosenbaum's office for electrolyte monitoring Can stop carvedilol given no indication (ischemia ruled out, and HFrEF ruled out) - Would not continue imdur on discharge given no indication - Lisinopril can be restarted as an outpatient as needed for HTN if renal function is stable Dr. Mcpherson recommends to resume home dose of 40mg daily. Annie Corrales RN ORTHOTIC TECHNICIAN.[employer] Acute on chronic systolic CH F (congestive heart failure) 10/04/2019 11/25/2019 Fall 07/17/2018 11/25/2019 Difficulty coping 06/20/2018 06/26/2018 Overview: --social work following for supportive counseling --Zyprexa added for recent depressed mood --mood has improved, gabapentin was DC'd as well daughter recalled patient taking this in the past and having severe depression and suicidal ideation (added to allergies) Hyperkalemia 06/18/2018 2018 Overview: K 5.2, will d/c lisinopril Chemotherapy induced nausea and vomiting 06/18/2018 07/02/2018 Overview: --compazine, Ativan and zofran prn. JOSE ENRIQUE (acute kidney injury) 06/16/2018 Overview: Acute increase of sCr to 1.5 on 06/16, but now down to 1.03 ( at baseline). will monitor at this time, if sCr rises, then will stop lisinopril Bilateral lower extremity edema 06/13/2018 07/17/2018 Overview: --uses 40 lasix po at home as needed --diurese as needed. 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 Leg DVT (deep venous thrombo embolism), acute, left 01/02/2018 11/25/2019 Overview: --acute DVT gastrocnemius found 12/13/2017 --continue apixaban till platelets <50K, last dose 06/21/2018 Adjustment insomnia 12/07/2017 05/14/20 18 Class 1 obesity due to exces s calories with serious comorbidity and body mass index (BMI) of 34.0 to 34.9 in adult 06/26/2017 11/25/2019 Acute bronchitis with chroni c obstructive pulmonary disease (COPD) (HCC) 12/30/2014 7 Venous insufficiency, peripheral 01/06/2014 11/25/2019 Esophagitis, unspecified 09/25/2012 Special screening for malign ant neoplasms, colon 09/06/2012 06/13/2018 Tobacco abuse 12/27/2011 10/01/2012 documented as of this encounter (statuses as of 11/27/2023) [facility]02-[facility]-2020 History of Past illness Narrative* Problem Noted Date Diagnosed Date Resolved Date Chest pressure 10/23/2019 11/25/2019 Wheezing 10/23/2019 11/25/2019 Shortness of breath 10/22/2019 11/25/19 20 Overview: Admitted with shortness of breath and fluid retention due to comp,ex history, admitted for management and work-up to determine cardiac causes versus primary pulmonary. He was diuresed with IV lasix, and lost 13 pounds in 3 days. Feels much better able to walk in the hallway few laps. Pulmonary team consulted work-up in progress Cardiac testing including echo, PET negative. Nuclear test to rule out amyloid - neg for cardiac Amyloid. Discussion with pulmonary team: No need for RHC this admission. Recommend repeat echo in 3 to 4 weeks (when euvolemic) and if RVSP is >50 mmhg, will need a right heart cath (pulmonary arterial HTN) Per HF team: Would start spironolactone 12.5, on discharge arrange f/u with Dr. Rosenbaum's office for electrolyte monitoring Can stop carvedilol given no indication (ischemia ruled out, and HFrEF ruled out) - Would not continue imdur on discharge given no indication - Lisinopril can be restarted as an outpatient as needed for HTN if renal function is stable Dr. Mcpherson recommends to resume home dose of 40mg daily. Annie Corrales, RN ORTHOTIC TECHNICIAN.[employer] Acute on chronic systolic CH F (congestive heart failure) 10/04/2019 11/25/2019 Fall 07/17/2018 11/25/2019 Difficulty coping 06/20/2018 06/26/2018 Overview: --social work following for supportive counseling --Zyprexa added for recent depressed mood --mood has improved, gabapentin was DC'd as well daughter recalled patient taking this in the past and having severe depression and suicidal ideation (added to allergies) Hyperkalemia 06/18/2018 2018 Overview: K 5.2, will d/c lisinopril Chemotherapy induced nausea and vomiting 06/18/2018 07/02/2018 Overview: --compazine, Ativan and zofran prn. JOSE ENRIQUE (acute kidney injury) 06/16/2018 Overview: Acute increase of sCr to 1.5 on 06/16, but now down to 1.03 ( at baseline). will monitor at this time, if sCr rises, then will stop lisinopril Bilateral lower extremity edema 06/13/2018 07/17/2018 Overview: --uses 40 lasix po at home as needed --diurese as needed. 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 Leg DVT (deep venous thrombo embolism), acute, left 01/02/2018 11/25/2019 Overview: --acute DVT gastrocnemius found 12/13/2017 --continue apixaban till platelets <50K, last dose 06/21/2018 Adjustment insomnia 12/07/2017 05/14/20 18 Class 1 obesity due to exces s calories with serious comorbidity and body mass index (BMI) of 34.0 to 34.9 in adult 06/26/2017 11/25/2019 Acute bronchitis with chroni c obstructive pulmonary disease (COPD) (HCC) 12/30/2014 7 Venous insufficiency, peripheral 01/06/2014 11/25/2019 Esophagitis, unspecified 09/25/2012 Special screening for malign ant neoplasms, colon 09/06/2012 06/13/2018 Tobacco abuse 12/27/2011 10/01/2012 documented as of this encounter (statuses as of 12/21/2023) [facility] History of Past illness Narrative* Problem Noted Date Diagnosed Date Resolved Date Chest pressure 10/23/2019 11/25/2019 Wheezing 10/23/2019 11/25/2019 Shortness of breath 10/22/2019 11/25/19 20 Overview: Admitted with shortness of breath and fluid retention due to comp,ex history, admitted for management and work-up to determine cardiac causes versus primary pulmonary. He was diuresed with IV lasix, and lost 13 pounds in 3 days. Feels much better able to walk in the hallway few laps. Pulmonary team consulted work-up in progress Cardiac testing including echo, PET negative. Nuclear test to rule out amyloid - neg for cardiac Amyloid. Discussion with pulmonary team: No need for RHC this admission. Recommend repeat echo in 3 to 4 weeks (when euvolemic) and if RVSP is >50 mmhg, will need a right heart cath (pulmonary arterial HTN) Per HF team: Would start spironolactone 12.5, on discharge arrange f/u with Dr. Rosenbaum's office for electrolyte monitoring Can stop carvedilol given no indication (ischemia ruled out, and HFrEF ruled out) - Would not continue imdur on discharge given no indication - Lisinopril can be restarted as an outpatient as needed for HTN if renal function is stable Dr. Mcpherson recommends to resume home dose of 40mg daily. Annie Corrales RN ORTHOTIC TECHNICIAN.[employer] Acute on chronic systolic CH F (congestive heart failure) 10/04/2019 11/25/2019 Fall 07/17/2018 11/25/2019 Difficulty coping 06/20/2018 06/26/2018 Overview: --social work following for supportive counseling --Zyprexa added for recent depressed mood --mood has improved, gabapentin was DC'd as well daughter recalled patient taking this in the past and having severe depression and suicidal ideation (added to allergies) Hyperkalemia 06/18/2018 2018 Overview: K 5.2, will d/c lisinopril Chemotherapy induced nausea and vomiting 06/18/2018 07/02/2018 Overview: --compazine, Ativan and zofran prn. JOSE ENRIQUE (acute kidney injury) 06/16/2018 Overview: Acute increase of sCr to 1.5 on 06/16, but now down to 1.03 ( at baseline). will monitor at this time, if sCr rises, then will stop lisinopril Bilateral lower extremity edema 06/13/2018 07/17/2018 Overview: --uses 40 lasix po at home as needed --diurese as needed. 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 Leg DVT (deep venous thrombo embolism), acute, left 01/02/2018 11/25/2019 Overview: --acute DVT gastrocnemius found 12/13/2017 --continue apixaban till platelets <50K, last dose 06/21/2018 Adjustment insomnia 12/07/2017 05/14/20 18 Class 1 obesity due to exces s calories with serious comorbidity and body mass index (BMI) of 34.0 to 34.9 in adult 06/26/2017 11/25/2019 Acute bronchitis with chroni c obstructive pulmonary disease (COPD) (HCC) 12/30/2014 7 Venous insufficiency, peripheral 01/06/2014 11/25/2019 Esophagitis, unspecified 09/25/2012 Special screening for malign ant neoplasms, colon 09/06/2012 06/13/2018 Tobacco abuse 12/27/2011 10/01/2012 documented as of this encounter (statuses as of 12/27/2023) [facility] History of Past illness Narrative* Problem Noted Date Diagnosed Date Resolved Date Chest pressure 10/23/2019 11/25/2019 Wheezing 10/23/2019 11/25/2019 Shortness of breath 10/22/2019 11/25/19 20 Overview: Admitted with shortness of breath and fluid retention due to comp,ex history, admitted for management and work-up to determine cardiac causes versus primary pulmonary. He was diuresed with IV lasix, and lost 13 pounds in 3 days. Feels much better able to walk in the hallway few laps. Pulmonary team consulted work-up in progress Cardiac testing including echo, PET negative. Nuclear test to rule out amyloid - neg for cardiac Amyloid. Discussion with pulmonary team: No need for RHC this admission. Recommend repeat echo in 3 to 4 weeks (when euvolemic) and if RVSP is >50 mmhg, will need a right heart cath (pulmonary arterial HTN) Per HF team: Would start spironolactone 12.5, on discharge arrange f/u with Dr. Rosenbaum's office for electrolyte monitoring Can stop carvedilol given no indication (ischemia ruled out, and HFrEF ruled out) - Would not continue imdur on discharge given no indication - Lisinopril can be restarted as an outpatient as needed for HTN if renal function is stable Dr. Mcpherson recommends to resume home dose of 40mg daily. Annie Corrales RN ORTHOTIC TECHNICIAN.[employer] Acute on chronic systolic CH F (congestive heart failure) 10/04/2019 11/25/2019 Fall 07/17/2018 11/25/2019 Difficulty coping 06/20/2018 06/26/2018 Overview: --social work following for supportive counseling --Zyprexa added for recent depressed mood --mood has improved, gabapentin was DC'd as well daughter recalled patient taking this in the past and having severe depression and suicidal ideation (added to allergies) Hyperkalemia 06/18/2018 2018 Overview: K 5.2, will d/c lisinopril Chemotherapy induced nausea and vomiting 06/18/2018 07/02/2018 Overview: --compazine, Ativan and zofran prn. JOSE ENRIQUE (acute kidney injury) 06/16/2018 Overview: Acute increase of sCr to 1.5 on 06/16, but now down to 1.03 ( at baseline). will monitor at this time, if sCr rises, then will stop lisinopril Bilateral lower extremity edema 06/13/2018 07/17/2018 Overview: --uses 40 lasix po at home as needed --diurese as needed. 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 Leg DVT (deep venous thrombo embolism), acute, left 01/02/2018 11/25/2019 Overview: --acute DVT gastrocnemius found 12/13/2017 --continue apixaban till platelets <50K, last dose 06/21/2018 Adjustment insomnia 12/07/2017 05/14/20 18 Class 1 obesity due to exces s calories with serious comorbidity and body mass index (BMI) of 34.0 to 34.9 in adult 06/26/2017 11/25/2019 Acute bronchitis with chroni c obstructive pulmonary disease (COPD) (HCC) 12/30/2014 7 Venous insufficiency, peripheral 01/06/2014 11/25/2019 Esophagitis, unspecified 09/25/2012 Special screening for malign ant neoplasms, colon 09/06/2012 06/13/2018 Tobacco abuse 12/27/2011 10/01/2012 documented as of this encounter (statuses as of 01/04/2024) [facility] noteNo assessment information availableWMercy Health [facility] Work Phone: Evaluation note* Diagnosis 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HCC)- Primary Obstructive chronic bronchitis without exacerbation Cough Non-seasonal allergic rhinitis, unspecified trigger Pulmonary arterial hypertension (HCC) Other chronic pulmonary heart diseases Acute bronchitis, unspecified organism Former smoker Personal history of tobacco use, presenting hazards to health documented in this encounter [facility] note* Diagnosis Cough- Primary documented in this encounter [facility] note* Diagnosis Discoloration and thickening of nails both feet documented in this encounter [facility] note* Diagnosis Discoloration and thickening of nails both feet [facility] Hypomagnesemia Disorders of magnesium metabolism [facility] Diagnosis Type 2 diabetes mellitus without complication, without long-term current use of insulin (HCC)- Primary Mixed hyperlipidemia Essential hypertension Unspecified essential hypertension Chronic obstructive pulmonary disease, unspecified COPD type (HCC) Pulmonary hypertension, unspecified (HCC) Multiple myeloma in remission (HCC) Multiple myeloma in remission 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HCC) Peripheral stem cells replaced by transplant 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) Antineoplastic chemotherapy induced pancytopenia Gastroesophageal reflux disease, unspecified whether esophagitis present Peripheral autonomic neuropathy in disorders classified elsewhere Inflammatory polyarthropathy (HCC) Unspecified inflammatory polyarthropathy Hypomagnesemia Disorders of magnesium metabolism Low serum vitamin B12 Ganglion cyst Ganglion, unspecified [facility] Diagnosis Dupuytren's contracture- Primary Contracture of palmar fascia Ganglion cyst Ganglion, unspecified Pain in finger of right hand Pain in limb Left hand pain Pain in limb Dupuytren's contracture Contracture of palmar fascia Ganglion cyst Ganglion, unspecified Pain in finger of right hand Pain in limb Left hand pain Pain in limb [facility] Diagnosis Multiple myeloma in remission (HCC) Multiple myeloma in remission 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[facility]) Peripheral stem cells replaced by transplant Dupuytren's contracture Contracture of palmar fascia Ganglion cyst Ganglion, unspecified Pain in finger of right hand Pain in limb Left hand pain Pain in limb [facility] Diagnosis Dupuytren's disease of palm- Primary Contracture of palmar fascia Ganglion cyst Ganglion, unspecified Pain in finger of right hand Pain in limb Left hand pain Pain in limb [facility] Diagnosis Pain of left hand- Primary Pain in limb [facility] Diagnosis Swelling of left hand- Primary Ganglion cyst Ganglion, unspecified Dupuytren's contracture Contracture of palmar fascia [facility] Diagnosis Pain of left hand Pain in limb [facility] Diagnosis Vitamin D deficiency Unspecified vitamin D deficiency [facility] Diagnosis Multiple myeloma in remission (HCC)- Primary Multiple myeloma in remission H/O autologous stem cell transplant (HCC) Peripheral stem cells replaced by transplant [facility] Diagnosis Swelling of left hand- Primary Ganglion cyst Ganglion, unspecified [facility] Diagnosis Ganglion cyst- Primary Ganglion, unspecified [facility] Diagnosis Multiple myeloma in remission (HCC) Multiple myeloma in remission 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HCC) Peripheral stem cells replaced by transplant Encounter for immunization- Primary Need for other specified prophylactic vaccination against single bacterial disease [facility] Diagnosis Vitamin D deficiency Unspecified vitamin D deficiency Encounter for immunization- Primary Need for other specified prophylactic vaccination against single bacterial disease [facility] Diagnosis Inflammatory polyarthropathy (HCC)- Primary Unspecified inflammatory polyarthropathy Encounter for immunization Need for other specified prophylactic vaccination against single bacterial disease ED (erectile dysfunction) of organic origin Impotence of organic origin [facility] Diagnosis Hypomagnesemia Disorders of magnesium metabolism [facility] Diagnosis Simple chronic bronchitis (HCC)- Primary Simple chronic bronchitis Former cigarette smoker Personal history of tobacco use, presenting hazards to health Post-nasal drip Postnasal drip [facility]* Diagnosis Type 2 diabetes mellitus without complication, without long-term current use of insulin (HCC) [facility] Diagnosis Type 2 diabetes mellitus without complication, without long-term current use of insulin (HCC) [facility] Diagnosis Type 2 diabetes mellitus without complication, without long-term current use of insulin (HCC) [facility] Diagnosis Medicare annual wellness visit, subsequent- Primary Routine general medical examination at a health care facility Type 2 diabetes mellitus without complication, without long-term current use of insulin ([facility]) Diabetic eye exam ([facility]) Type II or unspecified type diabetes mellitus without mention of complication, not stated as uncontrolled Essential hypertension Unspecified essential hypertension Mixed hyperlipidemia Chronic obstructive pulmonary disease, unspecified COPD type (HCC) Pulmonary hypertension, unspecified (HCC) Peripheral autonomic neuropathy in disorders classified elsewhere Multiple myeloma in remission (HCC) Multiple myeloma in remission Multiple myeloma, remission status unspecified (HCC) 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) Antineoplastic chemotherapy induced pancytopenia 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HCC) Peripheral stem cells replaced by transplant Gastroesophageal reflux disease, unspecified whether esophagitis present Obesity, Class I, BMI 30-34.9 Obesity, unspecified Low serum vitamin B12 Hypomagnesemia Disorders of magnesium metabolism Inflammatory polyarthropathy (HCC) Unspecified inflammatory polyarthropathy Spinal stenosis, lumbar region, without neurogenic claudication Living will on file at physician's office Advance directive discussed with patient Other specified counseling Screening for colon cancer Special screening for malignant neoplasms, colon Foot callus Corns and callosities Prostate disorder Unspecified disorder of prostate Medication management Encounter for long-term (current) use of other medications Bilateral leg edema Edema [facility] Diagnosis Multiple myeloma in remission (HCC)- Primary Multiple myeloma in remission H/O autologous stem cell transplant (HCC) Peripheral stem cells replaced by transplant [facility] Diagnosis Multiple myeloma in remission (HCC) Multiple myeloma in remission H/O autologous stem cell transplant (HCC) Peripheral stem cells replaced by transplant [facility] Diagnosis 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HCC)- Primary Obstructive chronic bronchitis without exacerbation Lung nodules Other nonspecific abnormal finding of lung field Former cigarette smoker Personal history of tobacco use, presenting hazards to health [facility] Diagnosis Bilateral leg edema- Primary Edema Essential hypertension Unspecified essential hypertension [facility] Diagnosis Multiple myeloma in remission (HCC)- Primary Multiple myeloma in remission [facility]* Diagnosis Bilateral leg edema- Primary Edema Essential hypertension Unspecified essential hypertension Type 2 diabetes mellitus without complication, without long-term current use of insulin (HCC) Ex-smoker Personal history of tobacco use, presenting hazards to health Encounter for abdominal aortic aneurysm (AAA) screening Spinal stenosis, lumbar region, without neurogenic claudication Weakness of both lower extremities Increased weakness when ambulating Other malaise and fatigue At high risk for falls Personal history of fall Vitamin D deficiency Unspecified vitamin D deficiency [facility] Diagnosis Onset Date Resolution Status Debility acute Diabetes mellitus acute GERD (gastroesophageal reflux disease) acute History of multiple myeloma acute Hyperlipidemia acute Osteoarthritis acute Rheumatoid arthritis acute Thoracic spinal stenosis acu te COPD (chronic obstructive pulmonary disease) [facility] Work Phone: Evaluation note* Diagnosis Onset Date Resolution Status Debility acute Diabetes mellitus acute GERD (gastroesophageal reflux disease) acute History of multiple myeloma acute Hyperlipidemia acute Osteoarthritis acute Rheumatoid arthritis acute COPD (chronic obstructive pulmonary disease) chronic Thoracic spinal stenosis res ved [facility] Work Phone: Evaluation note* Diagnosis Bilateral leg edema- Primary Edema [facility]* Diagnosis Tobacco abuse Tobacco use disorder [facility] Diagnosis 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HCC)- Primary Obstructive chronic bronchitis without exacerbation Irregular heart beat Cardiac dysrhythmia, unspecified Lung nodules Other nonspecific abnormal finding of lung field Former cigarette smoker Personal history of tobacco use, presenting hazards to health [facility] Diagnosis Irregular heart beat- Primary Cardiac dysrhythmia, unspecified [facility] Diagnosis Type 2 diabetes mellitus without complication, without long-term current use of insulin (HCC)- Primary Mixed hyperlipidemia Atrial fibrillation, unspecified type (HCC) Multiple myeloma in remission (HCC) Multiple myeloma in remission Multiple myeloma, remission status unspecified (HCC) Essential hypertension Unspecified essential hypertension Pulmonary hypertension, unspecified (HCC) Chronic obstructive pulmonary disease, unspecified COPD type (HCC) Acute thromboembolism of deep veins of both lower extremities (HCC) Inflammatory polyarthropathy (HCC) Unspecified inflammatory polyarthropathy Type 2 diabetes mellitus with stage 3a chronic kidney disease, without long-term current use of insulin (HCC) Chronic renal failure, stage 3a (HCC) [facility]* Diagnosis Hypomagnesemia Disorders of magnesium metabolism [facility] Diagnosis Paroxysmal atrial fibrillation (HCC)- Primary Atrial fibrillation [facility]* Diagnosis URI, acute- Primary Acute upper respiratory infections of unspecified site [facility]* Diagnosis Onset Date Resolution Status Abnormal ECG chronic Diabetes mellitus chronic DVT of lower extremity, bilateral chronic Essential hypertension chron [facility] Work Phone: Evaluation note* Diagnosis Enlarged LA (left atrium) Cardiomegaly Dilated aortic root (HCC) Thoracic aortic ectasia [facility] Diagnosis Dysfunction of left eustachian tube- Primary Dysfunction of Eustachian tube [facility]* Diagnosis COPD with chronic bronchitis- Primary Obstructive chronic bronchitis without exacerbation Lung nodules Other nonspecific abnormal finding of lung field Need for influenza vaccination Need for prophylactic vaccination and inoculation against influenza Former cigarette smoker Personal history of tobacco use, presenting hazards to health [facility]* Diagnosis Ex-smoker Personal history of tobacco use, presenting hazards to health Encounter for abdominal aortic aneurysm (AAA) screening [facility]* Diagnosis Hypomagnesemia Disorders of magnesium metabolism [facility] [facility] Diagnosis Lung nodules Other nonspecific abnormal finding of lung field [facility] Diagnosis Pre-op testing- Primary Preoperative examination, unspecified [facility] Diagnosis Diabetic eye exam (HCC) Type II or unspecified type diabetes mellitus without mention of complication, not stated as uncontrolled [facility] Diagnosis Hypomagnesemia Disorders of magnesium metabolism Hypomagnesemia- Primary Disorders of magnesium metabolism [facility] Diagnosis COPD with chronic bronchitis- Primary Obstructive chronic bronchitis without exacerbation Former cigarette smoker Personal history of tobacco use, presenting hazards to health Lung nodules Other nonspecific abnormal finding of lung field Irregular heart beat Cardiac dysrhythmia, unspecified Morbid (severe) obesity due to excess calories (HCC) Hypomagnesemia- Primary Disorders of magnesium metabolism [facility] Diagnosis Encounter for screening for lung cancer- Primary Former cigarette smoker Personal history of tobacco use, presenting hazards to health [facility] Diagnosis Pre-op examination- Primary Preoperative examination, unspecified Epiretinal membrane (ERM) of left eye Essential hypertension Unspecified essential hypertension Type 2 diabetes mellitus with stage 3a chronic kidney disease, without long-term current use of insulin (HCC) Paroxysmal atrial fibrillation (HCC) Atrial fibrillation [facility] Diagnosis Type 2 diabetes mellitus without complication, without long-term current use of insulin (HCC) [facility] Diagnosis Vertigo- Primary Dizziness and giddiness Neck pain Cervicalgia Muscle spasms of neck Spasm of muscle Essential hypertension Unspecified essential hypertension Mixed hyperlipidemia Type 2 diabetes mellitus without complication, without long-term current use of insulin (HCC) Gastroesophageal reflux disease, unspecified whether esophagitis present Hypomagnesemia Disorders of magnesium metabolism Low serum vitamin B12 Vitamin D deficiency Unspecified vitamin D deficiency Prostate disorder Unspecified disorder of prostate Medication management Encounter for long-term (current) use of other medications [facility] Diagnosis Multiple myeloma in remission ([facility])- Primary Multiple myeloma in remission [facility]* Diagnosis Pyogenic arthritis of right elbow, due to unspecified organism ([facility])- Primary Iron deficiency anemia, unspecified iron deficiency anemia type Essential hypertension Unspecified essential hypertension Pseudogout Other disorder of calcium metabolism [facility] Diagnosis COPD, mild ([facility])- Primary Chronic airway obstruction, not elsewhere classified Former cigarette smoker Personal history of tobacco use, presenting hazards to health Lung nodules Other nonspecific abnormal finding of lung field [facility] Diagnosis Bilateral carotid artery stenosis- Primary Occlusion and stenosis of carotid artery without mention of cerebral infarction documented in this encounter [facility]* Diagnosis Medicare annual wellness visit, subsequent- Primary Routine general medical examination at a [facility] care facility Diabetic eye exam ([facility]) Type II or unspecified type diabetes mellitus without mention of complication, not stated as uncontrolled Type 2 diabetes mellitus without complication, without long-term current use of insulin ([facility]) Essential hypertension Unspecified essential hypertension Mixed hyperlipidemia Bilateral carotid artery stenosis Occlusion and stenosis of carotid artery without mention of cerebral infarction Bilateral leg edema Edema Chronic obstructive pulmonary disease, unspecified COPD type ([facility]) Pulmonary hypertension, unspecified ([facility]) Dilated aortic root (HCC) Thoracic aortic ectasia Paroxysmal atrial fibrillation ([facility]) Atrial fibrillation Peripheral autonomic neuropathy in disorders classified elsewhere Gastroesophageal reflux disease, unspecified whether esophagitis present Multiple myeloma, remission status unspecified ([facility]) Multiple myeloma in remission (HCC) Multiple myeloma in remission 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) Antineoplastic chemotherapy induced pancytopenia 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HCC) Peripheral stem cells replaced by transplant 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[facility]) Low serum vitamin B12 Hypomagnesemia Disorders of magnesium metabolism Obesity, Class I, BMI 30-34.9 Obesity, unspecified Vitamin D deficiency Unspecified vitamin D deficiency Foot callus Corns and callosities Inflammatory polyarthropathy (HCC) Unspecified inflammatory polyarthropathy Spinal stenosis, lumbar region, without neurogenic claudication Low serum iron Iron deficiency anemia, unspecified Advance directive discussed with patient Other specified counseling Encounter for screening examination for other mental health and behavioral disorders Screening for depression [facility] Diagnosis Vertigo Dizziness and giddiness documented in [facility] Diagnosis Spinal stenosis, lumbar region, without neurogenic claudication documented [facility] Diagnosis Pseudogout- Primary Other disorder of calcium metabolism [facility] Diagnosis Onychomycosis- Primary Dermatophytosis of nail Type 2 diabetes mellitus without complication, without long-term current use of insulin (HCC) PAD (peripheral artery disease) (HCC) Peripheral vascular disease, unspecified Callus Corns and callosities [facility] Diagnosis Type 2 diabetes mellitus without complication, without long-term current use of insulin (HCC) documented [facility] Diagnosis Multiple myeloma in remission (HCC)- Primary Multiple myeloma in remission [facility]* Diagnosis Advanced directives, counseling/discussion- Primary Other specified counseling Multiple myeloma in remission (HCC) Multiple myeloma in remission H/O autologous stem cell transplant (HCC) Peripheral stem cells replaced by transplant Pulmonary arterial hypertension (HCC) Other chronic pulmonary heart diseases Chronic obstructive pulmonary disease, unspecified COPD type (HCC) Atrial fibrillation, unspecified type (HCC) Inflammatory polyarthropathy (HCC) Unspecified inflammatory polyarthropathy Type 2 diabetes mellitus with stage 3a chronic kidney disease, without long-term current use of insulin (HCC) Screening for colon cancer Special screening for malignant neoplasms, colon Encounter for screening for lung cancer Type 2 diabetes mellitus without complication, without long-term current use of insulin (HCC) Paroxysmal atrial fibrillation (HCC) Atrial fibrillation Essential hypertension Unspecified essential hypertension Mixed hyperlipidemia Gastroesophageal reflux disease, unspecified whether esophagitis present Spinal stenosis, lumbar region, without neurogenic claudication Obesity, Class I, BMI 30-34.9 Obesity, unspecified documented [facility] Diagnosis Diabetic polyneuropathy associated with type 2 diabetes mellitus (HCC)- Primary Onychomycosis Dermatophytosis of nail PAD (peripheral artery disease) Peripheral vascular disease, unspecified Pain in toe of left foot Pain in limb Pain in toe of right foot Pain in limb [facility]ructions [facility] home with 01/14/2023, [facility] Work Phone: Hospital Discharge instructions Additional Instructions Follow-up with your PCP Monday if possible. Return for any worsening of symptoms, return for any shortness of breath or chest pain.[facility] Work Phone: Hospital Discharge instructions Additional Instructions Thank you for trusting us with your care today! Please take Tylenol (2 pills, 650 mg), ibuprofen (2 pills, 400 mg) every 6 hours as needed for pain and fever control. Please return to the emergency department if your symptoms change or worsen. Specifically you develop lightheadedness, diffuse weakness, excessive fatigue, shortness of breath, palpitations, chest pain, nausea, if you lose consciousness, if you develop pallor. If you are interested in monitoring your heart rhythm at home there are several commercial devices available to you including [employer] Please refer to habilitation specialist such as [facility] for more information. Please follow with your primary care physician for further outpatient evaluation and management.[facility] Work Phone: Progress note Author Caio Gomez [facility] Note Date/Time February 21, 2025 10:37 am [facility] [address] [place], [place] [id number] OFFICE VISIT Date of Service: 02/21/25 MR#: [id number] Acct: [id number] Name: RONNIE YARBROUGH Rep #: [id number] : 1950 Provider: Dr. Nancy Gomez MD Age/Sex: 74/M [place] [facility] Status: Signed Intake Vital Signs 12/05/24 10:30 02/17/25 08:16 02/21/25 09:53 Height 5 ft 9 in 5 ft 9 in 5 ft 9 in Weight: 214 lb 214 lb BMI 31.6 31.6 BP 101/57 L Blood Pressure Location Lt brachial Position Sitting Respiration 18 Pulse 66 Pulse Source Palpation Intake Visit Reasons: back pain Chief Complaint: Pre op Accompanied by: Is patient in pain?: Yes Pain scale (1-10): 9 Allergies No Known Allergies Allergy (Verified 02/21/25 09:58) Medications ?Medication ?Instructions ?Recorded ?Confirmed ?Type aspirin 81 mg tablet,delayed 81 mg PO DAILY Heart 12/1802/21/25 History release calcium carb-ergocalciferol (vit 200 tab PO DAILY Supp lment 01/05/23 02/21/25 History D2) 600 mg calcium-200 unit tablet cholecalciferol (vitamin D3) 50 50 mcg PO DAILY Supple ment 01/05/23 02/21/25 History mcg (2,000 unit) tablet cyanocobalamin (vitamin B-12) 1,000 mcg PO DAILY Suppl ement 01/05/23 02/21/25 History 1,000 mcg capsule losartan 25 mg tablet 12.5 mg PO DAILY BP 01/05/23 02/21/25 History metformin 1,000 mg tablet 1,000 mg PO BID DM 01/05/23 02/21/25 History multivitamin 1 tab PO DAILY Supplement 02/21/25 History omeprazole 40 mg capsule,delayed 40 mg PO DAILY GERD 0 01/05/23 02/21/25 History release dapagliflozin propanediol 10 mg 10 mg PO DAILY 3 02/21/25 History tablet (Farxiga) fluticasone fur. 100 mcg-umeclid 1 inh inhalation SUSHIL Y 05/02/23 02/21/25 History 62.5 mcg-vilant 25 mcg inhalat.powder (Trelegy Ellipta) torsemide 20 mg tablet 20 mg PO DAILY 08/17/2303/12 History atorvastatin 40 mg tablet 40 mg PO QDAY 03/06/2402/21 History terbinafine HCl 250 mg tablet 250 mg PO DAILY Antifung al 03/06/24 02/21/25 History magnesium oxide 250 mg PO BID 08/08/2402/21 History oxycodone 5 mg tablet 5 mg PO TID PRN pain 5 02/21/25 History carvedilol 12.5 mg tablet 12.5 mg PO BID #180 tabs 01/1002/21/25 Rx dulaglutide 3 mg/0.5 mL 3 mg subcut QWEEK 02/04/25 0 02/21/25 History subcutaneous pen injector (Trulicity) Have you fallen in the past year?: No PFSH Medical History Pre-op testing Wears hearing aid Wears glasses Cancer Multiple myeloma History of steroid therapy Ambulates with cane High cholesterol Back pain Injury of back Injury of head and neck Gastric reflux Former smoker History of edema History of stress test History of echocardiogram History of Holter monitoring Cardiology follow-up encounter Joint infection of right wrist DVT of lower extremity, bilateral Abnormal ECG Paroxysmal atrial fibrillation Essential hypertension History of multiple myeloma GERD (gastroesophageal reflux disease) Rheumatoid arthritis Osteoarthritis Diabetes mellitus COPD (chronic obstructive pulmonary disease) Hyperlipidemia Debility Thoracic spinal stenosis Bone tumor Surgical History Hx of bilateral cataract extraction Hx of eye surgery History of total left knee replacement (TKR) (~08/2023) History of tonsillectomy History of laminectomy History of carpal tunnel surgery of right wrist History of esophagogastroduodenoscopy History of colonoscopy History of bone marrow transplant History of total right knee replacement (TKR) History of reverse total replacement of right shoulder joint History of lumbar fusion Hx of fusion of cervical spine Family History Father Cancer, Onset Age: 52 Pancreatic cancer. Diabetes Sister Diabetes Grandmother Diabetes Social History household members: spouse Smoking Status: Former smoker quit date: 09/18/12 alcohol intake: current alcohol intake frequency: a few times a month substance use type: does not use caffeine: Yes Type: coffee Number of servings: 3 HPI back pain Details: This documentation accurately reflects the service provided and the decisions made by me, Dr. Caio Gomez MD 02/21/25 0952. Part of today?s visit was documented by Bella Daniel MA, acting as scribe. RONNIE YARBROUGH is a 74 year old M here today for pre op visit. Patient would like to discuss the surgery. He denies any recent injections or physical therapy. Patient does have a history of diabetes with the last a1c was 6.7 which was obtained on 02/17/25. Patient does see a Dr. Gamble with cardiology who he is following up with next week for a stress test. HPI from 01/02/25: RONNIE YARBROUGH is a 74 year old M here today for MRI review of the lumbar spine.Patient denies any changes. 12/05/24: RONNIE YARBROUGH is a 74 year old M NEW patient here today for low back pain. Patient was referred by Dr. Paul pain management. He states that he has been having pain for 15-20 years and it has progressively gotten worse over time. He states that he has had multiple injections and about [address] Paul tried to go in and give him an implant for a pain stimulator but states that it didn't work which was why he referred him to us. He states Dr. Paul was unable to get the leads in during the procedure.He has had 3-4 previous surgeries on his lower back that were done at [facility]. His last back surgery was about 3 years ago and he had an MRI after that surgery that showed compression and a fracture. He is unable to recall the exact dates and what surgeries were done.Patient denies radicular symptoms. Denies numbness, tinglingor other associated symptoms. Patient denies having leg weakness but does have some issues with his balance. He has been having balance issues for 3-4 years which has worsened some and he uses a cane to ambulate. He has done PT in the past for before and after his surgeries but is unable to recall how long ago. Hedoes take Oxycodone 5mg for pain 3 times a day that is prescribed to him by Dr. Paul. Patient is going on a mission trip and will be gone for about 7 weeks. He denies numbness and tingling into his hands and does not trop items while holding them. Ortho Exam General General: Yes no acute distress Neurologic: Yes alert Psychologic: Yes reasonable and appropriate Spine SPINE TESTING CERVICAL THORACIC LUMBAR Musculoskeletal Strength 0=absent - 5=normal Details: Examination the back shows midline incision scar throughout the lumbar spine butpossibly also going to the lower thoracic spine. There is midline paraspinal tenderness in the lower back. Neurologic evaluation of lower extremity shows 5 x 5 power normal shows normal sensations in all dermatomes. Knee reflexes are 2+. Patient has significant balance issues and had a tough time getting up to exam table.. Romberg's and tandem gait could not be tested. 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 X-rays show L2-S1 posterior spinal fusion instrumented with good healing. There are postsurgical changes of laminectomy in the T11-12 segment . Lumbar degenerative scoliosis noticed. T12 wedging noticed. No dynamic instability but significant thoracolumbar kyphosis. T12 appears to be an old healed fracture without significant T2 hyperintensity. No cord compression noticed in the recent MRI throughout the thoracic spine. As discussed at previous visits, patient will undergo paddle lead placement of spinal cord stimulator to help with the pain as recommended by his pain physician. Since she has not had a successful trial, it will be a paddle trial with a second stage impulse generator placement. Reviewed the benefits and risks of surgery. Risks of surgery include bleeding, infection, hematoma, DVT, pulmonary embolism, persistent pain. Patient understands and agrees to proceed with surgery. Explained in detail the procedure of the paddle lead placement. Discussed post surgery restrictions such as no bending, lifting, or twisting. Answered all questions that he had today in preparation for surgery. Consent was signed. Patient is in agreement. Clinical Quality Measures Falls Risk Screening/Assistive Devices Have you fallen in the past year?: No 02/21/25 1037 <Electronically signed by Caio Gomez MD> Date _ Caio Gomez MD Cosigner Signature: Date (if applicable) CC: Dr. Ovidio Vincent MD ~ [facility] [facility] Work Phone: Reason for referral (narrative)* Outpatient Procedure (Routine) - Authorized Specialty Diagnoses / Procedures Referred By Contac t Referred To [facility] Diagnoses Pulmonary arterial hypertension (HCC) Procedures ECHO ECHO TTHRC R-T 2D W/WOM-MODE COMPL SPEC&COLR D Loretta Leon PA-C [address] [address] [facility] [place] [id number] Referral ID Status Reason Start Date Expiration Date Visits Requested Visits Authorized [id number] Authorized Auto-Generat ed Referral 07/23/2022 01/20/2023 1 1 * Outpatient Procedure (Routine) - Authorized Specialty Diagnoses / Procedures Referred By Contac t Referred To Contact [facility] Diagnoses 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HCC) Procedures SPIROMETRY BASELINE ONLY SPMTRY W/VC EXPIRATORY LUCIA W/WO MXML VOL VNTJ Loretta Leon PA-C [address] [address] Respiratory [place] [address] [place] [address] Referral ID Status Reason Start Date Expiration Date Visits Requested Visits Authorized [id number] Authorized Auto-Generat ed Referral 01/20/2022 02/19/2023 1 1 [facility] for referral (narrative)* Diagnostic Procedure Only (Routine) - Pending Review Specialty Diagnoses / Procedures Referred By Contac t Referred To Contact XR IMAGING Diagnoses Pain of left hand Procedures XR HAND GENERAL 3V PA/LAT/OBL LEFT RADEX HAND MINIMUM 3 VIEWS Mary Lopez PA-C [address] [place] [address] Xr Imaging Referral ID Status Reason Start Date Expiration Date Visits Requested Visits Authorized [id number] Pending Review Auto-Generat ed Referral 04/21/2022 05/07/2023 1 1 [facility] for referral (narrative)* Diagnostic Procedure Only (Routine) - Closed Specialty Diagnoses / Procedures Referred By Contac t Referred To Contact XR IMAGING Diagnoses Pain of left hand Procedures XR HAND GENERAL 3V PA/LAT/OBL LEFT RADEX HAND MINIMUM 3 VIEWS Mary Lopez PA-C [address] [place] [address] Xr Imaging Referral ID Status Reason Start Date Expiration Date V isits Requested Visits Authorized [id number] Closed Auto-Generate d Referral 04/21/2022 05/07/2023 1 1 [facility] for referral (narrative)* Diagnostic Procedure Only (Routine) - Authorized Specialty Diagnoses / Procedures Referred By Contac t Referred To Contact XR IMAGING Diagnoses Multiple myeloma in remission (HCC) H/O autologous stem cell transplant (HCC) Procedures XR BONE SURVEY ROUTINE RADIOLOGIC EXAMINATION OSSEOUS SURVEY COMPL Ela Alvarez MD [address] [place] [address] Xr Imaging Referral ID Status Reason Start Date Expiration Date Visits Requested Visits Authorized [id number] Authorized Auto-Generat ed Referral 04/26/2022 05/26/2023 1 1 [facility] for referral (narrative)* Diagnostic Procedure Only (Routine) - Closed Specialty Diagnoses / Procedures Referred By Contac t Referred To Contact XR IMAGING Diagnoses Multiple myeloma in remission (HCC) H/O autologous stem cell transplant (HCC) Procedures XR BONE SURVEY ROUTINE RADIOLOGIC EXAMINATION OSSEOUS SURVEY COMPL Ela Alvarez MD [address] [place] [address] Xr Imaging Referral ID Status Reason Start Date Expiration Date V isits Requested Visits Authorized [id number] Closed Auto-Generate d Referral 04/26/2022 05/26/2023 1 1 [facility] for referral (narrative)* Diagnostic Procedure Only (Routine) - Closed Specialty Diagnoses / Procedures Referred By Contac t Referred To Contact US IMAGING Diagnoses Ex-smoker Encounter for abdominal aortic aneurysm (AAA) screening Procedures US SCREENING FOR AAA (2017) US ABDOMINAL AORTA REAL TIME SCREEN STUDY AAA Ovidio Vincent MD [address] [place] [address] Us Imaging Referral ID Status Reason Start Date Expiration Date V isits Requested Visits Authorized [id number] Closed Auto-Generate d Referral 12/16/2022 01/15/2024 1 1 [facility] for referral (narrative)* Outpatient Procedure (Urgent) - Closed Specialty Diagnoses / Procedures [facility] Diagnoses Bilateral leg edema Procedures US LEG VEIN DVT ALESSANDRA V[facility] LAB DUP-SCAN XTR VEINS COMPLETE BILATERAL STUDY Ovidio Vincent MD [address] [place] [address] [facility] [place] [address] [place] [address] Referral ID Status Reason Start Date Expiration Date V isits Requested Visits Authorized [id number] Closed Auto-Generate d Referral 02/17/2023 02/17/2024 1 1 [facility] for referral (narrative)* Outpatient Procedure (Routine) - Pending Review Specialty Diagnoses / Procedures Referred By Contac t Referred To Contact [facility] Diagnoses Irregular heart beat Procedures ECG COMPLETE ECG ROUTINE ECG W/LEAST 12 LDS W/I&R Loretta Leon PA-C [address] [place] [address] [facility] [place] [address] [place] [address] Referral ID Status Reason Start Date Expiration Date Visits Requested Visits Authorized [id number] Pending Review Auto-Generat ed Referral 03/20/2023 03/19/2024 1 1 [facility] for referral (narrative)* Diagnostic Procedure Only (Routine) - Closed Specialty Diagnoses / Procedures Referred By Contac t Referred To Contact US IMAGING Diagnoses Ex-smoker Encounter for abdominal aortic aneurysm (AAA) screening Procedures US SCREENING FOR AAA (2017) US ABDOMINAL AORTA REAL TIME SCREEN STUDY AAA Ovidio Vincent MD [address] [place] [address] [place] [address] Referral ID Status Reason Start Date Expiration Date V isits Requested Visits Authorized [id number] Closed Auto-Generate d Referral 12/16/2022 01/15/2024 1 1 [facility] for referral (narrative)* Diagnostic Procedure Only (Routine) - Closed Specialty Diagnoses / Procedures Referred By Contac t Referred To Contact XR IMAGING Diagnoses Spinal stenosis, lumbar region, without neurogenic claudication Procedures XR LUMBAR PARS DEFECT 4V AP/LAT/BOTH OBL RADEX SPINE LUMBOSACRAL MINIMUM 4 VIEWS Ovidio Vincent MD [address] [place] [address] Xr Imaging [facility] Referral ID Status Reason Start Date Expiration Date V isits Requested Visits Authorized [id number] Closed Auto-Generate d Referral 09/30/2022 10/30/2023 1 1 [facility] for referral (narrative)* Outpatient Procedure (Routine) - Authorized Specialty Diagnoses / Procedures Referred By Contac t Referred To Contact [facility] Diagnoses PAD (peripheral artery disease) (HCC) Procedures PVR ANK PRESS [facility] NON-INVAS PHYSIOLOGIC STD EXTREMITY ART 2 [place] [address] [facility] [place] [address] [place] [address] Referral ID Status Reason Start Date Expiration Date Visits Requested Visits Authorized [id number] Authorized Auto-Generat ed Referral 07/02/2025 1 1 [facility] for referral (narrative)No reason for referral information availableRichfield Artesian [employer] Services Work Phone: Reason for visit Narrative* Diagnostic Procedure Only (Routine) - Closed Specialty Diagnoses / Procedures Referred By Contac t Referred To Contact XR IMAGING Diagnoses Pain of left hand Procedures XR HAND GENERAL 3V PA/LAT/OBL LEFT RADEX HAND MINIMUM 3 VIEWS Mary Lopez PA-C [address] [place] [address] Xr Imaging Referral ID Status Reason Start Date Expiration Date V isits Requested Visits Authorized [id number] Closed Auto-Generate d Referral 04/21/2022 05/07/2023 1 1 [facility] for visit Narrative* Diagnostic Procedure Only (Routine) - Closed Specialty Diagnoses / Procedures Referred By Contac t Referred To Contact XR IMAGING Diagnoses Multiple myeloma in remission (HCC) H/O autologous stem cell transplant (HCC) Procedures XR BONE SURVEY ROUTINE RADIOLOGIC EXAMINATION OSSEOUS SURVEY Ela Garza MD [address] [facility] [place] [address] Xr Imaging Referral ID Status Reason Start Date Expiration Date V isits Requested Visits Authorized [id number] Closed Auto-Generate d Referral 04/26/2022 05/26/2023 1 1 [facility] for visit Narrative* Diagnostic Procedure Only (Routine) - Closed Specialty Diagnoses / Procedures Referred By Contac t Referred To Contact XR IMAGING Diagnoses Spinal stenosis, lumbar region, without neurogenic claudication Procedures XR LUMBAR PARS DEFECT 4V AP/LAT/BOTH OBL RADEX SPINE LUMBOSACRAL MINIMUM 4 VIEWS Ovidio Vincent MD [address] [place] [address] [place] [address] Referral ID Status Reason Start Date Expiration Date V isits Requested Visits Authorized [id number] Closed Auto-Generate d Referral 09/30/2022 10/30/2023 1 1 [facility] Advance Directives No Advanced Directives Records FoundDocuments on File Type Date Recorded 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 Expl 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 Advance Directive(s) 10/22/2019 2:04 PM Advance Directive(s) 06/13/2018 10:45 AM Advance Directive(s) 11/16/2017 8:42 AM Advance Directive(s) 12/28/2011 12:00 AM Advance Directive(s) 11/03/2006 12:00 AM Advance Directive Response Recorded Date/ Time Advance Directives Yes October 07, 2017 9:22pm Living Will Yes October 07 9:22pm Power of Registered Nurse Float Pool Yes October 07, 2017 9:22pm Documents on File Type Date Recorded 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 Expl anation Advance Directive(s) 10/22/2019 2:04 PM Advance Directive(s) 06/13/2018 10:45 AM Advance Directive(s) 11/16/2017 8:42 AM Advance Directive(s) 12/28/2011 12:00 AM Advance Directive(s) 11/03/2006 12:00 AM Documents on File Type Date Recorded 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 Expl anation Advance Directive(s) 04/07/2022 1:23 PM Advance Directive(s) 10/22/2019 2:04 PM Advance Directive(s) 06/13/2018 10:45 AM Advance Directive(s) 11/16/2017 8:42 AM Advance Directive(s) 12/28/2011 12:00 AM Advance Directive(s) 11/03/2006 12:00 AM Documents on File Type Date Recorded 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 Expl anation Advance Directive(s) 04/07/2022 1:23 PM Advance Directive(s) 10/22/2019 2:04 PM Advance Directive(s) 06/13/2018 10:45 AM Advance Directive(s) 11/16/2017 8:42 AM Advance Directive(s) 12/28/2011 12:00 AM Advance Directive(s) 11/03/2006 12:00 AM Documents on File Type Date Recorded 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 Expl anation Advance Directive(s) 12/28/2011 Advance Directive(s) 11/03/2006 Documents on File Type Date Recorded 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 Expl anation Advance Directive(s) 12/28/2011 Advance Directive(s) 11/03/2006 Advance Directive Response Recorded Date/ Time Advance Directives Yes October 07, 2017 8:22pm Living Will Yes October 07 8:22pm Power of Registered Nurse Float Pool Yes October 07, 2017 8:22pm Advance Directive Response Recorded Date/ Time Advance Directives Yes October 07, 2017 9:22pm Living Will Yes January 05, 2023 3:02pm Power of Registered Nurse Float Pool Yes January 05 3:02pm Name of Medical Power of Registered Nurse Float Pool Yesenia Dwighter January 05, 2023 3:02pm Advance Directive Response Recorded Date/ Time Name of Medical Power of Registered Nurse Float Pool Yeseniayeison Quintanillaer January 05, 2023 3:02pm Name of Medical Power of Registered Nurse Float Pool February 10, 2023 8:37am Name of Medical Power of Registered Nurse Float Pool FORGETS NAME February 17, 2023 12:37pm Advance Directives Yes October 07, 2017 9:22pm Living Will Yes February 17, 2023 1 2:37pm Power of Registered Nurse Float Pool Yes February 17, 2023 12:37pm Advance Directive Response Recorded Date/ Time Name of Medical Power of Registered Nurse Float Pool Yesenia Yarbrough January 05, 2023 3:02pm Name of Medical Power of Registered Nurse Float Pool February 10, 2023 8:37am Name of Medical Power of Registered Nurse Float Pool FORGETS NAME February 17, 2023 12:37pm Name of Medical Power of Registered Nurse Float Pool n/a March 22, 2023 4:54pm Advance Directives Yes October 07, 2017 9:22pm Living Will Yes March 22, 2023 4 :54pm Power of Registered Nurse Float Pool Yes March 22, 2023 4:54pm Advance Directive Response Recorded Date/ Time Name of Medical Power of Registered Nurse Float Pool February 10, 2023 8:37am Name of Medical Power of Registered Nurse Float Pool FORGETS NAME February 17, 2023 12:37pm Name of Medical Power of Registered Nurse Float Pool n/a March 22, 2023 4:54pm Advance Directives Yes October 07, 2017 9:22pm Living Will Yes March 22, 2023 4 :54pm Power of Registered Nurse Float Pool Yes March 22, 2023 4:54pm Advance Directive Response Recorded Date/ Time Advance Directives Yes October 07, 2017 8:22pm Living Will Yes March 22, 2023 3 :54pm Power of Registered Nurse Float Pool Yes March 22, 2023 3:54pm Advance Directive Response Recorded Date/ Time Advance Directives Yes October 07, 2017 9:22pm Chief Complaint and Reason for Visit Chief Complaint STANDING ORDER LESION OF ULNAR NERVE RT UPPER LIMB. RX HERE S/O- PAIN- COPY PCP Chief Complaint Chronic obstructive pulmonary disease, unspecified Chief Complaint MICRODISECTOMY SPINE Reason for Visit Debility Diabetes mellitus GERD (gastroesophageal reflux disease) History of multiple myeloma Hyperlipidemia Osteoarthritis Rheumatoid arthritis Thoracic spinal stenosis COPD (chronic obstructive pulmonary disease) Chief Complaint MICRODISECTOMY SPINE BILATERAL LEG SWELLING MICRODISECTOMY SPINE RX HERE SWELLING Reason for Visit Debility Diabetes mellitus GERD (gastroesophageal reflux disease) History of multiple myeloma Hyperlipidemia Osteoarthritis Rheumatoid arthritis COPD (chronic obstructive pulmonary disease) Thoracic spinal stenosis Chief Complaint MICRODISECTOMY SPINE BILATERAL LEG SWELLING SWELLING MICRODISECTOMY SPINE RX HERE ABNORMAL EKG Reason for Visit Debility Diabetes mellitus GERD (gastroesophageal reflux disease) History of multiple myeloma Hyperlipidemia Osteoarthritis Rheumatoid arthritis COPD (chronic obstructive pulmonary disease) Thoracic spinal stenosis Chief Complaint BILATERAL LEG SWELLI NG SWELLING MICRODISECTOMY SPINE RX HERE ABNORMAL EKG Paroxysmal atrial fibrillation AFIB (ISMAEL) INT LABS Reason for Visit Abnormal ECG Diabetes mellitus DVT of lower extremity, bilateral Essential hypertension Chief Complaint BILATERAL LEG SWELLI NG SWELLING MICRODISECTOMY SPINE RX HERE ABNORMAL EKG Paroxysmal atrial fibrillation AFIB (ISMAEL) INT LABS ATRIAL FIBRILLATION Amb Documentation Reason for Visit Abnormal ECG Diabetes mellitus DVT of lower extremity, bilateral Essential hypertension Chief Complaint 3 M FU OA L KNEE/TKA. RX HERE Reason for Visit Abnormal ECG Diabetes mellitus DVT of lower extremity, bilateral Essential hypertension Chief Complaint Admit Date LUMBAR SPINE December 05, 2024 10: 23am RM 1 December 05, 2024 10: 42am LUMBAR SPINE January 02, 2025 3:2 0pm 6 M FU February 17, 2025 10:45 am Reason for Visit Admit Date Failed back surgical syndrome November 10:23am History of lumbar fusion December 05 10:23am Lumbar scoliosis December 05, 2024 10: 23am T12 compression fracture December 05 10:23am Thoracolumbar kyphosis December 05, 2024 10:23am Failed back surgical syndrome December 3:20pm History of lumbar fusion January 02 3:20pm Lumbar scoliosis January 02, 2025 3:2 0pm T12 compression fracture January 02 3:20pm Thoracolumbar kyphosis January 02, 2025 3:20pm Diabetes mellitus February 17, 2025 10:45 am Dyslipidemia February 17, 2025 10:45 am Essential hypertension February 17, 2025 10 :45am Hypertensive heart disease February 17 10:45am PVCs (premature ventricular contractions ) February 17, 2025 10:45am DVT of lower extremity, bilateral February 172024 10:45am Preoperative cardiovascular examination February 17, 2025 10:45am Chief Complaint Admit Date LUMBAR SPINE December 05, 2024 10: 23am RM 1 December 05, 2024 10: 42am LUMBAR SPINE January 02, 2025 3:2 0pm 6 M FU February 17, 2025 10:45 am back pain February 21, 2025 9:51a m Reason for Visit Admit Date Failed back surgical syndrome November 10:23am History of lumbar fusion December 05 10:23am Lumbar scoliosis December 05, 2024 10: 23am T12 compression fracture December 05 10:23am Thoracolumbar kyphosis December 05, 2024 10:23am Failed back surgical syndrome December 3:20pm History of lumbar fusion January 02 3:20pm Lumbar scoliosis January 02, 2025 3:2 0pm T12 compression fracture January 02 3:20pm Thoracolumbar kyphosis January 02, 2025 3:20pm Diabetes mellitus February 17, 2025 10:45 am Dyslipidemia February 17, 2025 10:45 am Essential hypertension February 17, 2025 10 :45am Hypertensive heart disease February 17 10:45am PVCs (premature ventricular contractions ) February 17, 2025 10:45am DVT of lower extremity, bilateral February 172024 10:45am Preoperative cardiovascular examination February 17, 2025 10:45am Failed back surgical syndrome February 21, 2025 9:51am T12 compression fracture February 21, 2025 9:51am Thoracolumbar kyphosis February 21, 2025 9: 51am Reason for Referral Specialty Diagnoses / Procedures Referred By Contac t Referred To Contact Orthopedics Diagnoses Ganglion cyst Procedures CONSULT TO ORTHOPAEDICS OFFICE/OUTPATIENT [facility] 60-74 MINUTES Leslye Winter PA-C [address] [place] [address] Referral ID Status Reason Start Date Expiration Date Visits Requested Visits Authorized [id number] Pending Review PCP Requested Referral 03/22/2022 03/22/2023 1 1 Specialty Diagnoses / Procedures Referred By Contac t Referred To Contact Rheumatology Diagnoses Inflammatory polyarthropathy (HCC) Procedures CONSULT TO RHEUM/IMMUN DISEASE OFFICE/OUTPATIENT [facility] 60-74 MINUTES Leslye Winter PA-C [address] [place] [id number] Referral ID Status Reason Start Date Expiration Date Visits Requested Visits Authorized [id number] Pending Review PCP Requested Referral 03/22/2022 03/22/2023 1 1 Specialty Diagnoses / Procedures Referred By Contac t Referred To Contact Rheumatology Diagnoses Inflammatory polyarthropathy (HCC) Procedures CONSULT TO RHEUM/IMMUN DISEASE OFFICE/OUTPATIENT [facility] 60-74 MINUTES Ovidio Vincent MD [address] [place] [address] Referral ID Status Reason Start Date Expiration Date Visits Requested Visits Authorized [id number] Pending Review PCP Requested Referral 07/04/2023 1 1 Specialty Diagnoses / Procedures Referred By Contac t Referred To Contact [facility] Diagnoses Spinal stenosis, lumbar region, without neurogenic claudication Procedures CONSULT TO PAIN MGT OFFICE/OUTPATIENT [facility] 60-74 MINUTES Ovidio Vincent MD [address] [place] [address] Anesthesia [place] [address] [place] [address] Referral ID Status Reason Start Date Expiration Date V isits Requested Visits Authorized [id number] Closed PCP Requested Referral 09/30/2022 09/30/2023 1 1 Specialty Diagnoses / Procedures Referred By Contac t Referred To Contact XR IMAGING Diagnoses Spinal stenosis, lumbar region, without neurogenic claudication Procedures XR LUMBAR PARS DEFECT 4V AP/LAT/BOTH OBL RADEX SPINE LUMBOSACRAL MINIMUM 4 VIEWS Ovidio Vincent MD [address] [place] [address] Xr Imaging Referral ID Status Reason Start Date Expiration Date Visits Requested Visits Authorized [id number] Pending Review Auto-Generat ed Referral 09/30/2022 10/30/2023 1 1 Specialty Diagnoses / Procedures Referred By Contac t Referred To Contact CT IMAGING Diagnoses Lung nodules Procedures CT CHEST WO IVCON DIAGNOSTIC COMPUTED TOMOGRAPHY THORAX W/O CNTRST Hayde Ward MD [address] [place] [address] Ct Imaging Referral ID Status Reason Start Date Expiration Date Visits Requested Visits Authorized [id number] Authorized Auto-Generat ed Referral 03/07/2023 11/27/2023 1 1 Specialty Diagnoses / Procedures Referred By Contac t Referred To Contact Cardiology Diagnoses Paroxysmal atrial fibrillation (HCC) Procedures CONSULT TO CARDIOLOGY OFFICE/OUTPATIENT [facility] 60-74 MINUTES Ovidio Vincent MD [address] [place] [address] Referral ID Status Reason Start Date Expiration Date Visits Requested Visits Authorized [id number] Pending Review PCP Requested Referral 04/05/2023 04/04/2024 1 1 Specialty Diagnoses / Procedures Referred By Contac t Referred To Contact CT IMAGING Diagnoses Lung nodules Procedures CT CHEST WO IVCON DIAGNOSTIC COMPUTED TOMOGRAPHY THORAX W/O CNTRST Loretta Leon PA-C [address] [place] [address] [place] [address] Referral ID Status Reason Start Date Expiration Date Visits Requested Visits Authorized [id number] Authorized Auto-Generat ed Referral 08/10/2024 1 1 Specialty Diagnoses / Procedures Referred By Contac t Referred To Contact MR IMAGING Diagnoses Vertigo Procedures MRI BRAIN WO IVCON MRI BRAIN BRAIN STEM W/O CONTRAST MATERIAL Ovidio Vincent MD [address] [place] [address] [place] [address] Referral ID Status Reason Start Date Expiration Date Visits Requested Visits Authorized [id number] Authorized Auto-Generat ed Referral 04/16/2024 05/16/2025 1 1 Specialty Diagnoses / Procedures Referred By Contac t Referred To Contact [facility] Diagnoses Vertigo Procedures CONSULT TO PHYSICAL THERAPY PHYSICAL THERAPY EVALUATION HIGH COMPLEX 45 MINS Ovidio Vincent MD [address] [place] [address] [facility] [address] [address] Referral ID Status Reason Start Date Expiration Date Visits Requested Visits Authorized [id number] Pending Review Auto-Generat ed Referral 04/16/2024 04/16/2025 1 1 Specialty Diagnoses / Procedures Referred By Contac t Referred To Contact [facility] Diagnoses Neck pain Muscle spasms of neck Procedures CONSULT TO PHYSICAL THERAPY PHYSICAL THERAPY EVALUATION HIGH COMPLEX 45 MINS Ovidio Vincent MD [address] [place] [address] [facility] [address] [address] Referral ID Status Reason Start Date Expiration Date Visits Requested Visits Authorized [id number] Pending Review Auto-Generat ed Referral 04/16/2024 04/16/2025 1 1 Specialty Diagnoses / Procedures Referred By Contac t Referred To Contact [facility] Diagnoses Vertigo Procedures US CAROTID ARTERIES [facility]A [facility] DUPLEX SCAN EXTRACRANIAL ART COMPL BI STUDY Ovidio Vincent MD [address] [place] [address] [facility] [place] [address] [place] [address] Referral ID Status Reason Start Date Expiration Date Visits Requested Visits Authorized [id number] Authorized Auto-Generat ed Referral 04/16/2024 04/16/2025 1 1 Specialty Diagnoses / Procedures Referred By Contac t Referred To Contact Infectious Diseases Diagnoses Pyogenic arthritis of right elbow, due to unspecified organism (HCC) Procedures CONSULT TO INFECTIOUS DISEASES OFFICE/OUTPATIENT [facility] 60 MINUTES Leslye Winter PA-C [address] [place] [address] Referral ID Status Reason Start Date Expiration Date Visits Requested Visits Authorized [id number] Authorized PCP Requested Referral 05/27/2024 05/27/2025 1 1 Specialty Diagnoses / Procedures Referred By Contac t Referred To Contact Podiatry Diagnoses Type 2 diabetes mellitus without complication, without long-term current use of insulin (HCC) Foot callus Procedures CONSULT TO PODIATRY OFFICE/OUTPATIENT [facility] 60 MINUTES Ovidio Vincent MD [address] [place] [address] Referral ID Status Reason Start Date Expiration Date Visits Requested Visits Authorized [id number] Authorized PCP Requested Referral 05/30/2024 05/30/2025 1 1 Referral ID Status Reason Start Date Expiration Date V isits Requested Visits Authorized [id number] Closed Auto-Generate d Referral 04/16/2024 05/16/2025 1 1 Summary Purpose Family History Relationship Condition Age at Onset Recorded Date/T emmy father Malignant neoplasm 52 Diabetes mellitus Unknown sister Diabetes mellitus Unknown grandmother Diabetes mellitus Unknown Relationship Condition Age at Onset Recorded Date/T emmy father Malignant neoplasm 52 No Family History Records Found Additional Source Comments Source Comments (unrecognize d section and content) In the event this informatio n is protected by the Federal Confidentiality of Alcohol and Drug Abuse Patient Records regulations: The Federal rules restrict any use of the information to criminally investigate or prosecute any alcohol or drug abuse patient.[facility] the event this information is protected by the Federal Confidentiality of Alcohol and Drug Abuse Patient Records regulations: The Federal rules restrict any use of the information to criminally investigate or prosecute any alcohol or drug abuse patient.[facility] the event this information is protected by the Federal Confidentiality of Alcohol and Drug Abuse Patient Records regulations: The Federal rules restrict any use of the information to criminally investigate or prosecute any alcohol or drug abuse patient.[facility] the event this information is protected by the Federal Confidentiality of Alcohol and Drug Abuse Patient Records regulations: The Federal rules restrict any use of the information to criminally investigate or prosecute any alcohol or drug abuse patient.[facility] the event this information is protected by the Federal Confidentiality of Alcohol and Drug Abuse Patient Records regulations: The Federal rules restrict any use of the information to criminally investigate or prosecute any alcohol or drug abuse patient.[facility] the event this information is protected by the Federal Confidentiality of Alcohol and Drug Abuse Patient Records regulations: The Federal rules restrict any use of the information to criminally investigate or prosecute any alcohol or drug abuse patient.[facility] the event this information is protected by the Federal Confidentiality of Alcohol and Drug Abuse Patient Records regulations: The Federal rules restrict any use of the information to criminally investigate or prosecute any alcohol or drug abuse patient.[facility] the event this information is protected by the Federal Confidentiality of Alcohol and Drug Abuse Patient Records regulations: The Federal rules restrict any use of the information to criminally investigate or prosecute any alcohol or drug abuse patient.[facility] the event this information is protected by the Federal Confidentiality of Alcohol and Drug Abuse Patient Records regulations: The Federal rules restrict any use of the information to criminally investigate or prosecute any alcohol or drug abuse patient.[facility] the event this information is protected by the Federal Confidentiality of Alcohol and Drug Abuse Patient Records regulations: The Federal rules restrict any use of the information to criminally investigate or prosecute any alcohol or drug abuse patient.[facility] the event this information is protected by the Federal Confidentiality of Alcohol and Drug Abuse Patient Records regulations: The Federal rules restrict any use of the information to criminally investigate or prosecute any alcohol or drug abuse patient.[facility] Center[facility] the event this information is protected by the Federal Confidentiality of Alcohol and Drug Abuse Patient Records regulations: The Federal rules restrict any use of the information to criminally investigate or prosecute any alcohol or drug abuse patient.[facility] the event this information is protected by the Federal Confidentiality of Alcohol and Drug Abuse Patient Records regulations: The Federal rules restrict any use of the information to criminally investigate or prosecute any alcohol or drug abuse patient.[facility] the event this information is protected by the Federal Confidentiality of Alcohol and Drug Abuse Patient Records regulations: The Federal rules restrict any use of the information to criminally investigate or prosecute any alcohol or drug abuse patient.[facility] the event this information is protected by the Federal Confidentiality of Alcohol and Drug Abuse Patient Records regulations: The Federal rules restrict any use of the information to criminally investigate or prosecute any alcohol or drug abuse patient.[facility] Center[facility] the event this information is protected by the Federal Confidentiality of Alcohol and Drug Abuse Patient Records regulations: The Federal rules restrict any use of the information to criminally investigate or prosecute any alcohol or drug abuse patient.[facility] Center[facility] the event this information is protected by the Federal Confidentiality of Alcohol and Drug Abuse Patient Records regulations: The Federal rules restrict any use of the information to criminally investigate or prosecute any alcohol or drug abuse patient.[facility] Center[facility] the event this information is protected by the Federal Confidentiality of Alcohol and Drug Abuse Patient Records regulations: The Federal rules restrict any use of the information to criminally investigate or prosecute any alcohol or drug abuse patient.[facility] Center[facility] the event this information is protected by the Federal Confidentiality of Alcohol and Drug Abuse Patient Records regulations: The Federal rules restrict any use of the information to criminally investigate or prosecute any alcohol or drug abuse patient.[facility] CenterIn the event this information is protected by the Federal Confidentiality of Alcohol and Drug Abuse Patient Records regulations: The Federal rules restrict any use of the information to criminally investigate or prosecute any alcohol or drug abuse patient.[facility] CenterIn the event this information is protected by the Federal Confidentiality of Alcohol and Drug Abuse Patient Records regulations: The Federal rules restrict any use of the information to criminally investigate or prosecute any alcohol or drug abuse patient.[facility] CenterIn the event this information is protected by the Federal Confidentiality of Alcohol and Drug Abuse Patient Records regulations: The Federal rules restrict any use of the information to criminally investigate or prosecute any alcohol or drug abuse patient.[facility] CenterIn the event this information is protected by the Federal Confidentiality of Alcohol and Drug Abuse Patient Records regulations: The Federal rules restrict any use of the information to criminally investigate or prosecute any alcohol or drug abuse patient.[facility] CenterIn the event this information is protected by the Federal Confidentiality of Alcohol and Drug Abuse Patient Records regulations: The Federal rules restrict any use of the information to criminally investigate or prosecute any alcohol or drug abuse patient.[facility] CenterIn the event this information is protected by the Federal Confidentiality of Alcohol and Drug Abuse Patient Records regulations: The Federal rules restrict any use of the information to criminally investigate or prosecute any alcohol or drug abuse patient.[facility] CenterIn the event this information is protected by the Federal Confidentiality of Alcohol and Drug Abuse Patient Records regulations: The Federal rules restrict any use of the information to criminally investigate or prosecute any alcohol or drug abuse patient.[facility] CenterIn the event this information is protected by the Federal Confidentiality of Alcohol and Drug Abuse Patient Records regulations: The Federal rules restrict any use of the information to criminally investigate or prosecute any alcohol or drug abuse patient.[facility] CenterIn the event this information is protected by the Federal Confidentiality of Alcohol and Drug Abuse Patient Records regulations: The Federal rules restrict any use of the information to criminally investigate or prosecute any alcohol or drug abuse patient.[facility] CenterIn the event this information is protected by the Federal Confidentiality of Alcohol and Drug Abuse Patient Records regulations: The Federal rules restrict any use of the information to criminally investigate or prosecute any alcohol or drug abuse patient.[facility]In the event this information is protected by the Federal Confidentiality of Alcohol and Drug Abuse Patient Records regulations: The Federal rules restrict any use of the information to criminally investigate or prosecute any alcohol or drug abuse patient.[facility] CenterIn the event this information is protected by the Federal Confidentiality of Alcohol and Drug Abuse Patient Records regulations: The Federal rules restrict any use of the information to criminally investigate or prosecute any alcohol or drug abuse patient.[facility] CenterIn the event this information is protected by the Federal Confidentiality of Alcohol and Drug Abuse Patient Records regulations: The Federal rules restrict any use of the information to criminally investigate or prosecute any alcohol or drug abuse patient.[facility] CenterIn the event this information is protected by the Federal Confidentiality of Alcohol and Drug Abuse Patient Records regulations: The Federal rules restrict any use of the information to criminally investigate or prosecute any alcohol or drug abuse patient.[facility] CenterIn the event this information is protected by the Federal Confidentiality of Alcohol and Drug Abuse Patient Records regulations: The Federal rules restrict any use of the information to criminally investigate or prosecute any alcohol or drug abuse patient.[facility] CenterIn the event this information is protected by the Federal Confidentiality of Alcohol and Drug Abuse Patient Records regulations: The Federal rules restrict any use of the information to criminally investigate or prosecute any alcohol or drug abuse patient.[facility] CenterIn the event this information is protected by the Federal Confidentiality of Alcohol and Drug Abuse Patient Records regulations: The Federal rules restrict any use of the information to criminally investigate or prosecute any alcohol or drug abuse patient.[facility] CenterIn the event this information is protected by the Federal Confidentiality of Alcohol and Drug Abuse Patient Records regulations: The Federal rules restrict any use of the information to criminally investigate or prosecute any alcohol or drug abuse patient.[facility] CenterIn the event this information is protected by the Federal Confidentiality of Alcohol and Drug Abuse Patient Records regulations: The Federal rules restrict any use of the information to criminally investigate or prosecute any alcohol or drug abuse patient.[facility]In the event this information is protected by the Federal Confidentiality of Alcohol and Drug Abuse Patient Records regulations: The Federal rules restrict any use of the information to criminally investigate or prosecute any alcohol or drug abuse patient.[facility]In the event this information is protected by the Federal Confidentiality of Alcohol and Drug Abuse Patient Records regulations: The Federal rules restrict any use of the information to criminally investigate or prosecute any alcohol or drug abuse patient.[facility]In the event this information is protected by the Federal Confidentiality of Alcohol and Drug Abuse Patient Records regulations: The Federal rules restrict any use of the information to criminally investigate or prosecute any alcohol or drug abuse patient.[facility]In the event this information is protected by the Federal Confidentiality of Alcohol and Drug Abuse Patient Records regulations: The Federal rules restrict any use of the information to criminally investigate or prosecute any alcohol or drug abuse patient.[facility] CenterIn the event this information is protected by the Federal Confidentiality of Alcohol and Drug Abuse Patient Records regulations: The Federal rules restrict any use of the information to criminally investigate or prosecute any alcohol or drug abuse patient.[facility]In the event this information is protected by the Federal Confidentiality of Alcohol and Drug Abuse Patient Records regulations: The Federal rules restrict any use of the information to criminally investigate or prosecute any alcohol or drug abuse patient.[facility]In the event this information is protected by the Federal Confidentiality of Alcohol and Drug Abuse Patient Records regulations: The Federal rules restrict any use of the information to criminally investigate or prosecute any alcohol or drug abuse patient.[facility]In the event this information is protected by the Federal Confidentiality of Alcohol and Drug Abuse Patient Records regulations: The Federal rules restrict any use of the information to criminally investigate or prosecute any alcohol or drug abuse patient.[facility]In the event this information is protected by the Federal Confidentiality of Alcohol and Drug Abuse Patient Records regulations: The Federal rules restrict any use of the information to criminally investigate or prosecute any alcohol or drug abuse patient.[facility]In the event this information is protected by the Federal Confidentiality of Alcohol and Drug Abuse Patient Records regulations: The Federal rules restrict any use of the information to criminally investigate or prosecute any alcohol or drug abuse patient.[facility]In the event this information is protected by the Federal Confidentiality of Alcohol and Drug Abuse Patient Records regulations: The Federal rules restrict any use of the information to criminally investigate or prosecute any alcohol or drug abuse patient.[facility]In the event this information is protected by the Federal Confidentiality of Alcohol and Drug Abuse Patient Records regulations: The Federal rules restrict any use of the information to criminally investigate or prosecute any alcohol or drug abuse patient.[facility]In the event this information is protected by the Federal Confidentiality of Alcohol and Drug Abuse Patient Records regulations: The Federal rules restrict any use of the information to criminally investigate or prosecute any alcohol or drug abuse patient.[facility]In the event this information is protected by the Federal Confidentiality of Alcohol and Drug Abuse Patient Records regulations: The Federal rules restrict any use of the information to criminally investigate or prosecute any alcohol or drug abuse patient.[facility]In the event this information is protected by the Federal Confidentiality of Alcohol and Drug Abuse Patient Records regulations: The Federal rules restrict any use of the information to criminally investigate or prosecute any alcohol or drug abuse patient.[facility]In the event this information is protected by the Federal Confidentiality of Alcohol and Drug Abuse Patient Records regulations: The Federal rules restrict any use of the information to criminally investigate or prosecute any alcohol or drug abuse patient.[facility]In the event this information is protected by the Federal Confidentiality of Alcohol and Drug Abuse Patient Records regulations: The Federal rules restrict any use of the information to criminally investigate or prosecute any alcohol or drug abuse patient.[facility]In the event this information is protected by the Federal Confidentiality of Alcohol and Drug Abuse Patient Records regulations: The Federal rules restrict any use of the information to criminally investigate or prosecute any alcohol or drug abuse patient.[facility]In the event this information is protected by the Federal Confidentiality of Alcohol and Drug Abuse Patient Records regulations: The Federal rules restrict any use of the information to criminally investigate or prosecute any alcohol or drug abuse patient.[facility]In the event this information is protected by the Federal Confidentiality of Alcohol and Drug Abuse Patient Records regulations: The Federal rules restrict any use of the information to criminally investigate or prosecute any alcohol or drug abuse patient.[facility]In the event this information is protected by the Federal Confidentiality of Alcohol and Drug Abuse Patient Records regulations: The Federal rules restrict any use of the information to criminally investigate or prosecute any alcohol or drug abuse patient.[facility]In the event this information is protected by the Federal Confidentiality of Alcohol and Drug Abuse Patient Records regulations: The Federal rules restrict any use of the information to criminally investigate or prosecute any alcohol or drug abuse patient.[facility]In the event this information is protected by the Federal Confidentiality of Alcohol and Drug Abuse Patient Records regulations: The Federal rules restrict any use of the information to criminally investigate or prosecute any alcohol or drug abuse patient.[facility]In the event this information is protected by the Federal Confidentiality of Alcohol and Drug Abuse Patient Records regulations: The Federal rules restrict any use of the information to criminally investigate or prosecute any alcohol or drug abuse patient.[facility]In the event this information is protected by the Federal Confidentiality of Alcohol and Drug Abuse Patient Records regulations: The Federal rules restrict any use of the information to criminally investigate or prosecute any alcohol or drug abuse patient.[facility]In the event this information is protected by the Federal Confidentiality of Alcohol and Drug Abuse Patient Records regulations: The Federal rules restrict any use of the information to criminally investigate or prosecute any alcohol or drug abuse patient.[facility]In the event this information is protected by the Federal Confidentiality of Alcohol and Drug Abuse Patient Records regulations: The Federal rules restrict any use of the information to criminally investigate or prosecute any alcohol or drug abuse patient.[facility]In the event this information is protected by the Federal Confidentiality of Alcohol and Drug Abuse Patient Records regulations: The Federal rules restrict any use of the information to criminally investigate or prosecute any alcohol or drug abuse patient.[facility]In the event this information is protected by the Federal Confidentiality of Alcohol and Drug Abuse Patient Records regulations: The Federal rules restrict any use of the information to criminally investigate or prosecute any alcohol or drug abuse patient.[facility]In the event this information is protected by the Federal Confidentiality of Alcohol and Drug Abuse Patient Records regulations: The Federal rules restrict any use of the information to criminally investigate or prosecute any alcohol or drug abuse patient.[facility]In the event this information is protected by the Federal Confidentiality of Alcohol and Drug Abuse Patient Records regulations: The Federal rules restrict any use of the information to criminally investigate or prosecute any alcohol or drug abuse patient.[facility]In the event this information is protected by the Federal Confidentiality of Alcohol and Drug Abuse Patient Records regulations: The Federal rules restrict any use of the information to criminally investigate or prosecute any alcohol or drug abuse patient.[facility]In the event this information is protected by the Federal Confidentiality of Alcohol and Drug Abuse Patient Records regulations: The Federal rules restrict any use of the information to criminally investigate or prosecute any alcohol or drug abuse patient.[facility]In the event this information is protected by the Federal Confidentiality of Alcohol and Drug Abuse Patient Records regulations: The Federal rules restrict any use of the information to criminally investigate or prosecute any alcohol or drug abuse patient.[facility]In the event this information is protected by the Federal Confidentiality of Alcohol and Drug Abuse Patient Records regulations: The Federal rules restrict any use of the information to criminally investigate or prosecute any alcohol or drug abuse patient.[facility]In the event this information is protected by the Federal Confidentiality of Alcohol and Drug Abuse Patient Records regulations: The Federal rules restrict any use of the information to criminally investigate or prosecute any alcohol or drug abuse patient.[facility]In the event this information is protected by the Federal Confidentiality of Alcohol and Drug Abuse Patient Records regulations: The Federal rules restrict any use of the information to criminally investigate or prosecute any alcohol or drug abuse patient.[facility]In the event this information is protected by the Federal Confidentiality of Alcohol and Drug Abuse Patient Records regulations: The Federal rules restrict any use of the information to criminally investigate or prosecute any alcohol or drug abuse patient.[facility]In the event this information is protected by the Federal Confidentiality of Alcohol and Drug Abuse Patient Records regulations: The Federal rules restrict any use of the information to criminally investigate or prosecute any alcohol or drug abuse patient.[facility]In the event this information is protected by the Federal Confidentiality of Alcohol and Drug Abuse Patient Records regulations: The Federal rules restrict any use of the information to criminally investigate or prosecute any alcohol or drug abuse patient.[facility]In the event this information is protected by the Federal Confidentiality of Alcohol and Drug Abuse Patient Records regulations: The Federal rules restrict any use of the information to criminally investigate or prosecute any alcohol or drug abuse patient.[facility]In the event this information is protected by the Federal Confidentiality of Alcohol and Drug Abuse Patient Records regulations: The Federal rules restrict any use of the information to criminally investigate or prosecute any alcohol or drug abuse patient.[facility]In the event this information is protected by the Federal Confidentiality of Alcohol and Drug Abuse Patient Records regulations: The Federal rules restrict any use of the information to criminally investigate or prosecute any alcohol or drug abuse patient.[facility]In the event this information is protected by the Federal Confidentiality of Alcohol and Drug Abuse Patient Records regulations: The Federal rules restrict any use of the information to criminally investigate or prosecute any alcohol or drug abuse patient.[facility]In the event this information is protected by the Federal Confidentiality of Alcohol and Drug Abuse Patient Records regulations: The Federal rules restrict any use of the information to criminally investigate or prosecute any alcohol or drug abuse patient.[facility]In the event this information is protected by the Federal Confidentiality of Alcohol and Drug Abuse Patient Records regulations: The Federal rules restrict any use of the information to criminally investigate or prosecute any alcohol or drug abuse patient.[facility]In the event this information is protected by the Federal Confidentiality of Alcohol and Drug Abuse Patient Records regulations: The Federal rules restrict any use of the information to criminally investigate or prosecute any alcohol or drug abuse patient.[facility]In the event this information is protected by the Federal Confidentiality of Alcohol and Drug Abuse Patient Records regulations: The Federal rules restrict any use of the information to criminally investigate or prosecute any alcohol or drug abuse patient.[facility]In the event this information is protected by the Federal Confidentiality of Alcohol and Drug Abuse Patient Records regulations: The Federal rules restrict any use of the information to criminally investigate or prosecute any alcohol or drug abuse patient.[facility]In the event this information is protected by the Federal Confidentiality of Alcohol and Drug Abuse Patient Records regulations: The Federal rules restrict any use of the information to criminally investigate or prosecute any alcohol or drug abuse patient.[facility]In the event this information is protected by the Federal Confidentiality of Alcohol and Drug Abuse Patient Records regulations: The Federal rules restrict any use of the information to criminally investigate or prosecute any alcohol or drug abuse patient.[facility]In the event this information is protected by the Federal Confidentiality of Alcohol and Drug Abuse Patient Records regulations: The Federal rules restrict any use of the information to criminally investigate or prosecute any alcohol or drug abuse patient.[facility]In the event this information is protected by the Federal Confidentiality of Alcohol and Drug Abuse Patient Records regulations: The Federal rules restrict any use of the information to criminally investigate or prosecute any alcohol or drug abuse patient.[facility]In the event this information is protected by the Federal Confidentiality of Alcohol and Drug Abuse Patient Records regulations: The Federal rules restrict any use of the information to criminally investigate or prosecute any alcohol or drug abuse patient.[facility]In the event this information is protected by the Federal Confidentiality of Alcohol and Drug Abuse Patient Records regulations: The Federal rules restrict any use of the information to criminally investigate or prosecute any alcohol or drug abuse patient.[facility]In the event this information is protected by the Federal Confidentiality of Alcohol and Drug Abuse Patient Records regulations: The Federal rules restrict any use of the information to criminally investigate or prosecute any alcohol or drug abuse patient.[facility]In the event this information is protected by the Federal Confidentiality of Alcohol and Drug Abuse Patient Records regulations: The Federal rules restrict any use of the information to criminally investigate or prosecute any alcohol or drug abuse patient.[facility]In the event this information is protected by the Federal Confidentiality of Alcohol and Drug Abuse Patient Records regulations: The Federal rules restrict any use of the information to criminally investigate or prosecute any alcohol or drug abuse patient.[facility]In the event this information is protected by the Federal Confidentiality of Alcohol and Drug Abuse Patient Records regulations: The Federal rules restrict any use of the information to criminally investigate or prosecute any alcohol or drug abuse patient.[facility]In the event this information is protected by the Federal Confidentiality of Alcohol and Drug Abuse Patient Records regulations: The Federal rules restrict any use of the information to criminally investigate or prosecute any alcohol or drug abuse patient.[facility]In the event this information is protected by the Federal Confidentiality of Alcohol and Drug Abuse Patient Records regulations: The Federal rules restrict any use of the information to criminally investigate or prosecute any alcohol or drug abuse patient.[facility]In the event this information is protected by the Federal Confidentiality of Alcohol and Drug Abuse Patient Records regulations: The Federal rules restrict any use of the information to criminally investigate or prosecute any alcohol or drug abuse patient.[facility]In the event this information is protected by the Federal Confidentiality of Alcohol and Drug Abuse Patient Records regulations: The Federal rules restrict any use of the information to criminally investigate or prosecute any alcohol or drug abuse patient.[facility]In the event this information is protected by the Federal Confidentiality of Alcohol and Drug Abuse Patient Records regulations: The Federal rules restrict any use of the information to criminally investigate or prosecute any alcohol or drug abuse patient.[facility]In the event this information is protected by the Federal Confidentiality of Alcohol and Drug Abuse Patient Records regulations: The Federal rules restrict any use of the information to criminally investigate or prosecute any alcohol or drug abuse patient.[facility] CenterIn the event this information is protected by the Federal Confidentiality of Alcohol and Drug Abuse Patient Records regulations: The Federal rules restrict any use of the information to criminally investigate or prosecute any alcohol or drug abuse patient.[facility] CenterIn the event this information is protected by the Federal Confidentiality of Alcohol and Drug Abuse Patient Records regulations: The Federal rules restrict any use of the information to criminally investigate or prosecute any alcohol or drug abuse patient.[facility] CenterIn the event this information is protected by the Federal Confidentiality of Alcohol and Drug Abuse Patient Records regulations: The Federal rules restrict any use of the information to criminally investigate or prosecute any alcohol or drug abuse patient.[facility] CenterIn the event this information is protected by the Federal Confidentiality of Alcohol and Drug Abuse Patient Records regulations: The Federal rules restrict any use of the information to criminally investigate or prosecute any alcohol or drug abuse patient.[facility] CenterIn the event this information is protected by the Federal Confidentiality of Alcohol and Drug Abuse Patient Records regulations: The Federal rules restrict any use of the information to criminally investigate or prosecute any alcohol or drug abuse patient.[facility] CenterIn the event this information is protected by the Federal Confidentiality of Alcohol and Drug Abuse Patient Records regulations: The Federal rules restrict any use of the information to criminally investigate or prosecute any alcohol or drug abuse patient.[facility] CenterIn the event this information is protected by the Federal Confidentiality of Alcohol and Drug Abuse Patient Records regulations: The Federal rules restrict any use of the information to criminally investigate or prosecute any alcohol or drug abuse patient.[facility] CenterIn the event this information is protected by the Federal Confidentiality of Alcohol and Drug Abuse Patient Records regulations: The Federal rules restrict any use of the information to criminally investigate or prosecute any alcohol or drug abuse patient.[facility] CenterIn the event this information is protected by the Federal Confidentiality of Alcohol and Drug Abuse Patient Records regulations: The Federal rules restrict any use of the information to criminally investigate or prosecute any alcohol or drug abuse patient.[facility] CenterIn the event this information is protected by the Federal Confidentiality of Alcohol and Drug Abuse Patient Records regulations: The Federal rules restrict any use of the information to criminally investigate or prosecute any alcohol or drug abuse patient.[facility] CenterIn the event this information is protected by the Federal Confidentiality of Alcohol and Drug Abuse Patient Records regulations: The Federal rules restrict any use of the information to criminally investigate or prosecute any alcohol or drug abuse patient.[facility] CenterIn the event this information is protected by the Federal Confidentiality of Alcohol and Drug Abuse Patient Records regulations: The Federal rules restrict any use of the information to criminally investigate or prosecute any alcohol or drug abuse patient.[facility] CenterIn the event this information is protected by the Federal Confidentiality of Alcohol and Drug Abuse Patient Records regulations: The Federal rules restrict any use of the information to criminally investigate or prosecute any alcohol or drug abuse patient.[facility] CenterIn the event this information is protected by the Federal Confidentiality of Alcohol and Drug Abuse Patient Records regulations: The Federal rules restrict any use of the information to criminally investigate or prosecute any alcohol or drug abuse patient.[facility]In the event this information is protected by the Federal Confidentiality of Alcohol and Drug Abuse Patient Records regulations: The Federal rules restrict any use of the information to criminally investigate or prosecute any alcohol or drug abuse patient.[facility]In the event this information is protected by the Federal Confidentiality of Alcohol and Drug Abuse Patient Records regulations: The Federal rules restrict any use of the information to criminally investigate or prosecute any alcohol or drug abuse patient.[facility] CenterIn the event this information is protected by the Federal Confidentiality of Alcohol and Drug Abuse Patient Records regulations: The Federal rules restrict any use of the information to criminally investigate or prosecute any alcohol or drug abuse patient.[facility] CenterIn the event this information is protected by the Federal Confidentiality of Alcohol and Drug Abuse Patient Records regulations: The Federal rules restrict any use of the information to criminally investigate or prosecute any alcohol or drug abuse patient.[facility] CenterIn the event this information is protected by the Federal Confidentiality of Alcohol and Drug Abuse Patient Records regulations: The Federal rules restrict any use of the information to criminally investigate or prosecute any alcohol or drug abuse patient.[facility] CenterIn the event this information is protected by the Federal Confidentiality of Alcohol and Drug Abuse Patient Records regulations: The Federal rules restrict any use of the information to criminally investigate or prosecute any alcohol or drug abuse patient.[facility]In the event this information is protected by the Federal Confidentiality of Alcohol and Drug Abuse Patient Records regulations: The Federal rules restrict any use of the information to criminally investigate or prosecute any alcohol or drug abuse patient.[facility]In the event this information is protected by the Federal Confidentiality of Alcohol and Drug Abuse Patient Records regulations: The Federal rules restrict any use of the information to criminally investigate or prosecute any alcohol or drug abuse patient.[facility]In the event this information is protected by the Federal Confidentiality of Alcohol and Drug Abuse Patient Records regulations: The Federal rules restrict any use of the information to criminally investigate or prosecute any alcohol or drug abuse patient.[facility]In the event this information is protected by the Federal Confidentiality of Alcohol and Drug Abuse Patient Records regulations: The Federal rules restrict any use of the information to criminally investigate or prosecute any alcohol or drug abuse patient.[facility]In the event this information is protected by the Federal Confidentiality of Alcohol and Drug Abuse Patient Records regulations: The Federal rules restrict any use of the information to criminally investigate or prosecute any alcohol or drug abuse patient.[facility] CenterIn the event this information is protected by the Federal Confidentiality of Alcohol and Drug Abuse Patient Records regulations: The Federal rules restrict any use of the information to criminally investigate or prosecute any alcohol or drug abuse patient.[facility]In the event this information is protected by the Federal Confidentiality of Alcohol and Drug Abuse Patient Records regulations: The Federal rules restrict any use of the information to criminally investigate or prosecute any alcohol or drug abuse patient.[facility]In the event this information is protected by the Federal Confidentiality of Alcohol and Drug Abuse Patient Records regulations: The Federal rules restrict any use of the information to criminally investigate or prosecute any alcohol or drug abuse patient.[facility]In the event this information is protected by the Federal Confidentiality of Alcohol and Drug Abuse Patient Records regulations: The Federal rules restrict any use of the information to criminally investigate or prosecute any alcohol or drug abuse patient.[facility]In the event this information is protected by the Federal Confidentiality of Alcohol and Drug Abuse Patient Records regulations: The Federal rules restrict any use of the information to criminally investigate or prosecute any alcohol or drug abuse patient.[facility]In the event this information is protected by the Federal Confidentiality of Alcohol and Drug Abuse Patient Records regulations: The Federal rules restrict any use of the information to criminally investigate or prosecute any alcohol or drug abuse patient.[facility]In the event this information is protected by the Federal Confidentiality of Alcohol and Drug Abuse Patient Records regulations: The Federal rules restrict any use of the information to criminally investigate or prosecute any alcohol or drug abuse patient.[facility]In the event this information is protected by the Federal Confidentiality of Alcohol and Drug Abuse Patient Records regulations: The Federal rules restrict any use of the information to criminally investigate or prosecute any alcohol or drug abuse patient.[facility]In the event this information is protected by the Federal Confidentiality of Alcohol and Drug Abuse Patient Records regulations: The Federal rules restrict any use of the information to criminally investigate or prosecute any alcohol or drug abuse patient.[facility]In the event this information is protected by the Federal Confidentiality of Alcohol and Drug Abuse Patient Records regulations: The Federal rules restrict any use of the information to criminally investigate or prosecute any alcohol or drug abuse patient.[facility]In the event this information is protected by the Federal Confidentiality of Alcohol and Drug Abuse Patient Records regulations: The Federal rules restrict any use of the information to criminally investigate or prosecute any alcohol or drug abuse patient.[facility]In the event this information is protected by the Federal Confidentiality of Alcohol and Drug Abuse Patient Records regulations: The Federal rules restrict any use of the information to criminally investigate or prosecute any alcohol or drug abuse patient.[facility]In the event this information is protected by the Federal Confidentiality of Alcohol and Drug Abuse Patient Records regulations: The Federal rules restrict any use of the information to criminally investigate or prosecute any alcohol or drug abuse patient.[facility]In the event this information is protected by the Federal Confidentiality of Alcohol and Drug Abuse Patient Records regulations: The Federal rules restrict any use of the information to criminally investigate or prosecute any alcohol or drug abuse patient.[facility]In the event this information is protected by the Federal Confidentiality of Alcohol and Drug Abuse Patient Records regulations: The Federal rules restrict any use of the information to criminally investigate or prosecute any alcohol or drug abuse patient.[facility]In the event this information is protected by the Federal Confidentiality of Alcohol and Drug Abuse Patient Records regulations: The Federal rules restrict any use of the information to criminally investigate or prosecute any alcohol or drug abuse patient.[facility]In the event this information is protected by the Federal Confidentiality of Alcohol and Drug Abuse Patient Records regulations: The Federal rules restrict any use of the information to criminally investigate or prosecute any alcohol or drug abuse patient.[facility]In the event this information is protected by the Federal Confidentiality of Alcohol and Drug Abuse Patient Records regulations: The Federal rules restrict any use of the information to criminally investigate or prosecute any alcohol or drug abuse patient.[facility]In the event this information is protected by the Federal Confidentiality of Alcohol and Drug Abuse Patient Records regulations: The Federal rules restrict any use of the information to criminally investigate or prosecute any alcohol or drug abuse patient.[facility]In the event this information is protected by the Federal Confidentiality of Alcohol and Drug Abuse Patient Records regulations: The Federal rules restrict any use of the information to criminally investigate or prosecute any alcohol or drug abuse patient.[facility]In the event this information is protected by the Federal Confidentiality of Alcohol and Drug Abuse Patient Records regulations: The Federal rules restrict any use of the information to criminally investigate or prosecute any alcohol or drug abuse patient.[facility]In the event this information is protected by the Federal Confidentiality of Alcohol and Drug Abuse Patient Records regulations: The Federal rules restrict any use of the information to criminally investigate or prosecute any alcohol or drug abuse patient.[facility]In the event this information is protected by the Federal Confidentiality of Alcohol and Drug Abuse Patient Records regulations: The Federal rules restrict any use of the information to criminally investigate or prosecute any alcohol or drug abuse patient.[facility]In the event this information is protected by the Federal Confidentiality of Alcohol and Drug Abuse Patient Records regulations: The Federal rules restrict any use of the information to criminally investigate or prosecute any alcohol or drug abuse patient.[facility]In the event this information is protected by the Federal Confidentiality of Alcohol and Drug Abuse Patient Records regulations: The Federal rules restrict any use of the information to criminally investigate or prosecute any alcohol or drug abuse patient.[facility]In the event this information is protected by the Federal Confidentiality of Alcohol and Drug Abuse Patient Records regulations: The Federal rules restrict any use of the information to criminally investigate or prosecute any alcohol or drug abuse patient.[facility]In the event this information is protected by the Federal Confidentiality of Alcohol and Drug Abuse Patient Records regulations: The Federal rules restrict any use of the information to criminally investigate or prosecute any alcohol or drug abuse patient.[facility]In the event this information is protected by the Federal Confidentiality of Alcohol and Drug Abuse Patient Records regulations: The Federal rules restrict any use of the information to criminally investigate or prosecute any alcohol or drug abuse patient.[facility]In the event this information is protected by the Federal Confidentiality of Alcohol and Drug Abuse Patient Records regulations: The Federal rules restrict any use of the information to criminally investigate or prosecute any alcohol or drug abuse patient.[facility]In the event this information is protected by the Federal Confidentiality of Alcohol and Drug Abuse Patient Records regulations: The Federal rules restrict any use of the information to criminally investigate or prosecute any alcohol or drug abuse patient.[facility]In the event this information is protected by the Federal Confidentiality of Alcohol and Drug Abuse Patient Records regulations: The Federal rules restrict any use of the information to criminally investigate or prosecute any alcohol or drug abuse patient.[facility]In the event this information is protected by the Federal Confidentiality of Alcohol and Drug Abuse Patient Records regulations: The Federal rules restrict any use of the information to criminally investigate or prosecute any alcohol or drug abuse patient.[facility]In the event this information is protected by the Federal Confidentiality of Alcohol and Drug Abuse Patient Records regulations: The Federal rules restrict any use of the information to criminally investigate or prosecute any alcohol or drug abuse patient.[facility]In the event this information is protected by the Federal Confidentiality of Alcohol and Drug Abuse Patient Records regulations: The Federal rules restrict any use of the information to criminally investigate or prosecute any alcohol or drug abuse patient.[facility]In the event this information is protected by the Federal Confidentiality of Alcohol and Drug Abuse Patient Records regulations: The Federal rules restrict any use of the information to criminally investigate or prosecute any alcohol or drug abuse patient.[facility]In the event this information is protected by the Federal Confidentiality of Alcohol and Drug Abuse Patient Records regulations: The Federal rules restrict any use of the information to criminally investigate or prosecute any alcohol or drug abuse patient.[facility]In the event this information is protected by the Federal Confidentiality of Alcohol and Drug Abuse Patient Records regulations: The Federal rules restrict any use of the information to criminally investigate or prosecute any alcohol or drug abuse patient.[facility]In the event this information is protected by the Federal Confidentiality of Alcohol and Drug Abuse Patient Records regulations: The Federal rules restrict any use of the information to criminally investigate or prosecute any alcohol or drug abuse patient.[facility]In the event this information is protected by the Federal Confidentiality of Alcohol and Drug Abuse Patient Records regulations: The Federal rules restrict any use of the information to criminally investigate or prosecute any alcohol or drug abuse patient.[facility]In the event this information is protected by the Federal Confidentiality of Alcohol and Drug Abuse Patient Records regulations: The Federal rules restrict any use of the information to criminally investigate or prosecute any alcohol or drug abuse patient.[facility]In the event this information is protected by the Federal Confidentiality of Alcohol and Drug Abuse Patient Records regulations: The Federal rules restrict any use of the information to criminally investigate or prosecute any alcohol or drug abuse patient.[facility]In the event this information is protected by the Federal Confidentiality of Alcohol and Drug Abuse Patient Records regulations: The Federal rules restrict any use of the information to criminally investigate or prosecute any alcohol or drug abuse patient.[facility]In the event this information is protected by the Federal Confidentiality of Alcohol and Drug Abuse Patient Records regulations: The Federal rules restrict any use of the information to criminally investigate or prosecute any alcohol or drug abuse patient.[facility]In the event this information is protected by the Federal Confidentiality of Alcohol and Drug Abuse Patient Records regulations: The Federal rules restrict any use of the information to criminally investigate or prosecute any alcohol or drug abuse patient.[facility]In the event this information is protected by the Federal Confidentiality of Alcohol and Drug Abuse Patient Records regulations: The Federal rules restrict any use of the information to criminally investigate or prosecute any alcohol or drug abuse patient.[facility]In the event this information is protected by the Federal Confidentiality of Alcohol and Drug Abuse Patient Records regulations: The Federal rules restrict any use of the information to criminally investigate or prosecute any alcohol or drug abuse patient.[facility]In the event this information is protected by the Federal Confidentiality of Alcohol and Drug Abuse Patient Records regulations: The Federal rules restrict any use of the information to criminally investigate or prosecute any alcohol or drug abuse patient.[facility]In the event this information is protected by the Federal Confidentiality of Alcohol and Drug Abuse Patient Records regulations: The Federal rules restrict any use of the information to criminally investigate or prosecute any alcohol or drug abuse patient.[facility]In the event this information is protected by the Federal Confidentiality of Alcohol and Drug Abuse Patient Records regulations: The Federal rules restrict any use of the information to criminally investigate or prosecute any alcohol or drug abuse patient.[facility]In the event this information is protected by the Federal Confidentiality of Alcohol and Drug Abuse Patient Records regulations: The Federal rules restrict any use of the information to criminally investigate or prosecute any alcohol or drug abuse patient.[facility]In the event this information is protected by the Federal Confidentiality of Alcohol and Drug Abuse Patient Records regulations: The Federal rules restrict any use of the information to criminally investigate or prosecute any alcohol or drug abuse patient.[facility]In the event this information is protected by the Federal Confidentiality of Alcohol and Drug Abuse Patient Records regulations: The Federal rules restrict any use of the information to criminally investigate or prosecute any alcohol or drug abuse patient.[facility]In the event this information is protected by the Federal Confidentiality of Alcohol and Drug Abuse Patient Records regulations: The Federal rules restrict any use of the information to criminally investigate or prosecute any alcohol or drug abuse patient.[facility]In the event this information is protected by the Federal Confidentiality of Alcohol and Drug Abuse Patient Records regulations: The Federal rules restrict any use of the information to criminally investigate or prosecute any alcohol or drug abuse patient.[facility]In the event this information is protected by the Federal Confidentiality of Alcohol and Drug Abuse Patient Records regulations: The Federal rules restrict any use of the information to criminally investigate or prosecute any alcohol or drug abuse patient.[facility]In the event this information is protected by the Federal Confidentiality of Alcohol and Drug Abuse Patient Records regulations: The Federal rules restrict any use of the information to criminally investigate or prosecute any alcohol or drug abuse patient.[facility]In the event this information is protected by the Federal Confidentiality of Alcohol and Drug Abuse Patient Records regulations: The Federal rules restrict any use of the information to criminally investigate or prosecute any alcohol or drug abuse patient.[facility]In the event this information is protected by the Federal Confidentiality of Alcohol and Drug Abuse Patient Records regulations: The Federal rules restrict any use of the information to criminally investigate or prosecute any alcohol or drug abuse patient.[facility]In the event this information is protected by the Federal Confidentiality of Alcohol and Drug Abuse Patient Records regulations: The Federal rules restrict any use of the information to criminally investigate or prosecute any alcohol or drug abuse patient.[facility]In the event this information is protected by the Federal Confidentiality of Alcohol and Drug Abuse Patient Records regulations: The Federal rules restrict any use of the information to criminally investigate or prosecute any alcohol or drug abuse patient.[facility] Center[facility] the event this information is protected by the Federal Confidentiality of Alcohol and Drug Abuse Patient Records regulations: The Federal rules restrict any use of the information to criminally investigate or prosecute any alcohol or drug abuse patient.[facility] CenterIn the event this information is protected by the Federal Confidentiality of Alcohol and Drug Abuse Patient Records regulations: The Federal rules restrict any use of the information to criminally investigate or prosecute any alcohol or drug abuse patient.[facility] Reason for Visit (unrecogniz ed section and content) Reason Onset Date Comments Community Monitoring Outreach 12/27/2021 CD M Telephonic Reason Comments Refill Request Reason Comments COPD follow up Reason Onset Date Comments Community Monitoring Outreach 01/24/2022 Te lephonic Follow Up Reason Onset Date Comments Refill Request 01/08/2022 Reason Onset Date Comments Refill Request 01/16/2022 Reason Onset Date Comments Community Monitoring Outreach 03/16/2022 Te lephonic Follow Up Reason Onset Date Comments Refill Request 03/17/2022 Reason Comments F/U 6 months Reason Comments Schedule Surgery Reason Comments Referred by Leslye Winter Specialty Diagnoses / Procedures Referred By Bryanna segura Referred To Contact Orthopedics Diagnoses Ganglion cyst Procedures CONSULT TO ORTHOPAEDICS OFFICE/OUTPATIENT NEW HIGH MDM 60-74 MINUTES Leslye Winter PA-C [address] [place] [address] Referral ID Status Reason Start Date Expiration Date Visits Requested Visits Authorized [id number] Pending Review PCP Requested Referral 03/22/2022 03/22/2023 1 1 Reason Comments OT needed? Reason Comments Post Op Reason Comments Results Reason Onset Date Comments Refill Request 04/25/2022 Reason Comments Established Patient Reason Onset Date Comments Community Monitoring Outreach 05/11/2022 CD M Telephonic Follow Up Reason Comments Follow Up Post Op Established Patient Reason Onset Date Comments Community Monitoring Outreach 05/31/2022 CD M Telephonic Reason Comments Established Patient 8 wks postop excisio n ganglion cyst right 5th finger Post Op 8 wks postop excisio n ganglion cyst right 5th finger Reason Onset Date Comments Refill Request 06/08/2022 Reason Onset Date Comments Refill Request 06/09/2022 Reason Onset Date Comments Community Monitoring Outreach 06/28/2022 CD M Telephonic Reason Onset Date Comments Community Monitoring Outreach 06/29/2022 CD M Telephonic Reason Onset Date Comments Refill Request 07/03/2022 Reason Comments Pain Left wrist/shoulder pain Reason Comments Recheck COPD Reason Onset Date Comments Community Monitoring Outreach 08/23/2022 CD M Follow Up Reason Onset Date Comments Community Monitoring Outreach 08/24/2022 CD M Follow Up Reason Onset Date Comments Refill Request 08/29/2022 Reason Comments Orders CXR order Reason Onset Date Comments Refill Request 09/05/2022 Reason Onset Date Comments Refill Request 09/12/2022 Reason Onset Date Comments Refill Request 09/19/2022 Reason Onset Date Comments Community Monitoring Outreach 09/21/2022 CD M Reason Comments Appointment Appointment with Dr. Head Reason Comments Medicare Wellness Exam Reason Comments Patient Update Reason Comments Medication Request Reason Onset Date Comments Refill Request 10/24/2022 Reason Comments Established Patient 3 month follow up [place] Reason Comments Follow Up Patient is here for follow up on leg edema Reason Comments Established Patient Reason Onset Date Comments Refill Request 11/08/2022 Reason Onset Date Comments [facility] 11/24/2022 Telephonic outre ach Reason Onset Date Comments [facility] 11/25/2022 Telephonic outre ach Reason Onset Date Comments Population Health Navigation Outreach 11/29/2022 [employer] Care Gaps Reason Comments Appointment Reason Onset Date Comments [facility] 12/21/2022 Telephonic outre ach Reason Comments Follow Up Reason Comments ER F/U Reason Onset Date Comments [facility] 01/17/2023 Telephonic outre ach Reason Onset Date Comments Population Health Navigation Outreach 01/25/2023 [employer] Care Gaps Reason Onset Date Comments Transition Of Care 01/14/2023 Reason Comments Edema Reason Onset Date Comments Refill Request 03/06/2023 Reason Comments Established Patient COPD follow up Reason Comments EKG Reason Comments ER Discharge Summary Reason Comments 6 Month Exam Reason Onset Date Comments Refill Request 03/31/2023 Reason Onset Date Comments Community Monitoring Outreach 04/03/2023 Te lephonic Outreach CDM Home Monitoring Reason Comments Results Reason Onset Date Comments Community Monitoring Outreach 04/19/2023 Te lephonic Outreach CDM Home Monitoring Reason Comments Orders Medication Reason Comments Outside Cardiology Reason Onset Date Comments Community Monitoring Outreach 05/18/2023 CD Telephonic Outreach Reason Onset Date Comments Refill Request/[facility] 05/19/2023 Reason Onset Date Comments Refill Request 05/19/2023 Reason Comments Head Congestion X 3 days cough Reason Comments Outside Echo Reason Comments Medication Question Reason Comments Hearing Problem Left ear plugged Reason Comments Pre-op order Reason Onset Date Comments Community Monitoring Outreach 06/27/2023 Te lephonic Outreach CDM Home Monitoring Reason Onset Date Comments COPD Immunizations 07/12/2023 Flu vaccination Reason Comments Radiology US Specialty Diagnoses / Procedures Referred By Bryanna segura Referred To Contact US IMAGING Diagnoses Ex-smoker Encounter for abdominal aortic aneurysm (AAA) screening Procedures US SCREENING FOR AAA (2017) US ABDOMINAL AORTA REAL TIME SCREEN STUDY AAA Ovidio Vincent MD [address] [place] [address] [place] [address] Referral ID Status Reason Start Date Expiration Date V isits Requested Visits Authorized [id number] Closed Auto-Generate d Referral 12/16/2022 01/15/2024 1 1 Reason Onset Date Comments Community Monitoring Outreach 07/25/2023 Te lephonic Outreach CDM Home Monitoring Reason Onset Date Comments Community Monitoring Outreach 07/26/2023 2n d attempt Telephonic Outreach CDM Home Monitoring Reason Onset Date Comments Refill Request 07/26/[address] Specialty Diagnoses / Procedures Referred By Contaugustine t Referred To Contact CT IMAGING Diagnoses Lung nodules Procedures CT CHEST WO IVCON DIAGNOSTIC COMPUTED TOMOGRAPHY THORAX W/O CNTRST Loretta Leon, PAAndriyC [address] [place] [address] [place] [address] Referral ID Status Reason Start Date Expiration Date V isits Requested Visits Authorized [id number] Closed Auto-Generate d Referral 07/12/2023 08/10/2024 1 1 Reason Comments Pre-Op Exam Left knee replacemen t Reason Comments Outside Diabetic Eye Exam Reason Comments Established Patient COPD Reason Onset Date Comments Community Monitoring Outreach 11/23/2023 Te lephonic Outreach CDM Home Monitoring Reason Comments New Patient Reason Onset Date Comments Community Monitoring Outreach 12/21/2023 Te lephonic Outreach CDM Home Monitoring Reason Comments Surgical Clearance Reason Comments Pre-Op Exam Reason Comments Patient Request Reason Onset Date Comments Community Monitoring Outreach 01/17/2024 Te lephonic Outreach CDM Home Monitoring Reason Onset Date Comments Community Monitoring Outreach 01/18/2024 Reason Comments Outside PT Reason Onset Date Comments Community Monitoring Outreach 02/15/2024 Te lephonic Outreach CDM Home Monitoring Reason Onset Date Comments CDM 02/16/2024 Community Monito ring Outreach Call Reason Onset Date Comments Refill Request 03/13/2024 Reason Onset Date Comments Community Monitoring Outreach 03/15/2024 Te lephonic Outreach CDM Home Monitoring Reason Onset Date Comments Refill Request 04/08/2024 Reason Onset Date Comments Community Monitoring Outreach 04/15/2024 Te lephonic Outreach CDM Home Monitoring Reason Comments Appointment PT [facility] Reason Comments Dizziness Reason Onset Date Comments Community Monitoring Outreach 04/24/2024 Te lephonic Outreach CDM Home Monitoring Reason Comments PT Discharge Summary Reason Onset Date Comments Community Monitoring Outreach 04/26/2024 2n d attempt Telephonic Outreach CDM Home Monitoring Reason Onset Date Comments Refill Request 05/10/2024 Reason Onset Date Comments Community Monitoring Outreach 05/10/2024 Te lephonic Outreach CDM Home Monitoring Reason Comments Hospital F/U Reason Comments Follow Up COPD Reason Comments Medicare Wellness Exam Specialty Diagnoses / Procedures Referred By Bryanna t Referred To Contact MR IMAGING Diagnoses Vertigo Procedures MRI BRAIN WO IVCON MRI BRAIN BRAIN STEM W/O CONTRAST MATERIAL Ovidio Vincent MD [address] [place] [address] [place] [address] Referral ID Status Reason Start Date Expiration Date V isits Requested Visits Authorized [id number] Closed Auto-Generate d Referral 04/16/2024 05/16/2025 1 1 Reason Onset Date Comments Community Monitoring Outreach 06/13/2024 Te lephonic Outreach CDM Home Monitoring Reason Onset Date Comments Community Monitoring Outreach 06/27/2024 2n d attempt Telephonic Outreach CDM Home Monitoring Reason Comments Diabetic Foot Care Diabetic Foot Check Specialty Diagnoses / Procedures Referred By Bryanna t Referred To Contact Podiatry Diagnoses Type 2 diabetes mellitus without complication, without long-term current use of insulin (HCC) Foot callus Procedures CONSULT TO PODIATRY OFFICE/OUTPATIENT [facility] MDM 60 MINUTES Ovidio Vincent MD [address] [place] [address] Referral ID Status Reason Start Date Expiration Date V isits Requested Visits Authorized [id number] Closed PCP Requested Referral 05/30/2024 05/30/2025 1 1 Reason Onset Date Comments Refill Request 07/11/2024 Reason Onset Date Comments Community Monitoring Outreach 07/11/2024 3r d attempt this sequence Telephonic Outreach CDM Home Monitoring Reason Onset Date Comments Refill Request 09/03/2024 Reason Onset Date Comments Population Health Navigation Outreach 09/30/2024 Chelsi RAMANA Reason Onset Date Comments Refill Request 10/02/2024 Reason Onset Date Comments Refill Request 11/19/2024 Reason Onset Date Comments Refill Request 11/30/2024 Reason Comments Outside Ortho Reason Onset Date Comments Refill Request 12/11/2024 Reason Comments Follow Up Diabetic Foot Care Nail Care Reason Onset Date Comments Refill Request 01/16/2025 Reason Comments Patient Update Medical Clearance fr [facility] ortho Reason Comments Outside [employer] Ordered Care Teams (unrecognized sec tion and content) Tour Agent Relationship Specialty Start Date End Date Ovidio Vincent MD [address] [place] [address] PCP - General Family Practice 03/16/21 Becky Leija MD, [address] [place] [address] Physician Radiation Oncology 11/24/17 Lola Apple RN Specialty Blanket Binder Oncology 12/08/17 Tato Castro [address] [place], [place] 580351 Pain Management Anesthesiology 01/30/18 Santos Woods MD [address] [facility] [address] [place] [address] Physician Blood and Marrow Transplant 05/04/18 Fidel De La Garza MD [address] [place], [place] [phone] Consulting Hematology/Oncology 05/15/18 Halima Cohen ([place]), [place] [address] [address] [place], [place] [phone] Specialty Blanket Binder HOSPICE & PALLIATIVE MEDICINE 05/15/18 Nargis Ortega, mule operatorRegional Refrigerated Cdl Truck Driver 05/27/21 Tour Agent Relationship Specialty Start Date End Date Ovidio Vincent MD [address] [place] [address] PCP - General Family Practice 03/16/21 Becky Leija MD, MD [address] [place] [address] Physician Radiation Oncology 11/24/17 Lola Apple, RN Specialty Blanket Binder Oncology 12/08/17 Tato Castro [address] [place], [place] [phone] Pain Management Anesthesiology 01/30/18 Santos Woods MD [address] [address] Physician Blood and Marrow Transplant 05/04/18 Fidel De La Garza MD [address] [place] [address] Consulting Hematology/Oncology 05/15/18 Halima [place] ([place]), [place] [address] [place], [place] [phone] Specialty Blanket Binder HOSPICE & PALLIATIVE MEDICINE 05/15/18 Nargis Ortega mule operatorRegional Refrigerated Cdl Truck Driver 05/27/21 Tour Agent Relationship Specialty Start Date End Date Ovidio Vincent MD [address] [place] [address] PCP - General Family Practice 03/16/21 Becky Leija MD, [address] [place] [address] Physician Radiation Oncology 11/24/17 Lola Apple RN Specialty Blanket Binder Oncology 12/08/17 Tato Castro De La Garza [address] [place], [place] [phone] Pain Management Anesthesiology 01/30/18 Santos Woods MD [address] [address] Physician Blood and Marrow Transplant 05/04/18 Fidel De La Garza MD [address] [place] [address] Consulting Hematology/Oncology 05/15/18 Halima Cohen (Rn), [place] [address] [place], [place] [phone] Specialty Blanket Binder HOSPICE & PALLIATIVE MEDICINE 05/15/18 Nargis Ortega RN [address] [place], [place] [address]38[address] Regional Refrigerated Cdl Truck Driver 05/27/21 Tour Agent Relationship Specialty Start Date End Date Ovidio Vincent MD [address] [place] [address] PCP - General Family Practice 03/16/21 Becky Leija MD, [address] [place] [address] Physician Radiation Oncology 11/24/17 Lola Apple RN Specialty Blanket Binder Oncology 12/08/17 Tato Castro [address] [place] [phone] Pain Management Anesthesiology 01/30/18 Santos Wodos MD [address] [phone] Physician Blood and Marrow Transplant 05/04/18 Fidel De La Garza MD [address] [place], [place] [phone] Consulting Hematology/Oncology 05/15/18 Halima Cohen ([place]n), [place] [address] [place], [place] [phone] Specialty Blanket Binder HOSPICE & PALLIATIVE MEDICINE 05/15/18 Nargis Ortega, ALICIA [address] [place] [address] Regional Refrigerated Cdl Truck Driver 05/27/21 Tour Agent Relationship Specialty Start Date End Date Ovidio Vincent MD [address] [place] [address] PCP - General Family Practice 03/16/21 Becky Leija MD, [address] [place] [address] Physician Radiation Oncology 11/24/17 Lola Apple, RN Specialty Blanket Binder Oncology 12/08/17 Tato Castro [address] [place], [place] 306681 Pain Management Anesthesiology 01/30/18 Santos Woods MD [address] [address] Physician Blood and Marrow Transplant 05/04/18 Fidel De La Garza MD [address] [place] [address] Consulting Hematology/Oncology 05/15/18 Halima [place] ([place]), [place] [address] [place], [place] [phone] Specialty Blanket Binder HOSPICE & PALLIATIVE MEDICINE 05/15/18 Nargis Ortega, RN [address] [place], [place] [phone] Regional Refrigerated Cdl Truck Driver 05/27/21 Tour Agent Relationship Specialty Start Date End Date Ovidio Vincent MD [address] [place] [address] PCP - General Family Practice 03/16/21 Becky Leija MD, [address] [place] [address] Physician Radiation Oncology 11/24/17 Lola Apple, RN Specialty Blanket Binder Oncology 12/08/17 Tato Castro [address] [place], [place] [phone] Pain Management Anesthesiology 01/30/18 Santos Woods MD [address] [address] Physician Blood and Marrow Transplant 05/04/18 Fidel De La Garza MD [address] [place], [place] [phone] Consulting Hematology/Oncology 05/15/18 Halima [place] ([place]n), [place] [address] [place], [place] [phone] Specialty Blanket Binder HOSPICE & PALLIATIVE MEDICINE 05/15/18 Nargis Ortega RN [address] [place] [address] Regional Refrigerated Cdl Truck Driver 05/27/21 Tour Agent Relationship Specialty Start Date End Date Ovidio Vincent MD [address] [place], [place] 608731 PCP - General Family Practice 03/16/21 Becky Leija MD, MD [address] [place], [place] 627201 Physician Radiation Oncology 11/24/17 Lola Apple RN Specialty Blanket Binder Oncology 12/08/17 Tato Castro [address] [place], [place] [phone] Pain Management Anesthesiology 01/30/18 [place] [address] [address] Physician Blood and Marrow Transplant 05/04/18 Fidel De La Garza MD [address] [place] [address] Consulting Hematology/Oncology 05/15/18 Halima Cohen ([place]n), [place] [address] [place], [place] [phone] Specialty Blanket Binder HOSPICE & PALLIATIVE MEDICINE 05/15/18 Nargis Ortega, RN [address] [place] [address] Regional Refrigerated Cdl Truck Driver 05/27/21 Tour Agent Relationship Specialty Start Date End Date Ovidio Vincent MD [address] [place] [address] PCP - General Family Practice 03/16/21 Becky Leija MD, MD [address] [place] [address] Physician Radiation Oncology 11/24/17 Lola Apple, RN Specialty Blanket Binder Oncology 12/08/17 Tato Castro [address] [place], [place] 781831 Pain Management Anesthesiology 01/30/18 Santos Woods MD [address] [place], [place] [phone] Physician Blood and Marrow Transplant 05/04/18 Fidel De La Garza MD [address] [place], [place] [phone] Consulting Hematology/Oncology 05/15/18 Halima Cohen ([place]), [place] [address] [place], [place] [phone] Specialty Blanket Binder HOSPICE & PALLIATIVE MEDICINE 05/15/18 Nargis Ortega, RN [address] [place], [place] [phone] Regional Refrigerated Cdl Truck Driver 05/27/21 Tour Agent Relationship Specialty Start Date End Date Ovidio Vincent MD [address] [place] [address] PCP - General Family Practice 03/16/21 Becky Leija MD, MD [address] [place] [address] Physician Radiation Oncology 11/24/17 Lola Apple, RN Specialty Blanket Binder Oncology 12/08/17 Tato Castro [address] [place] [address] Pain Management Anesthesiology 01/30/18 Santos Woods MD [address] [phone] Physician Blood and Marrow Transplant 05/04/18 Fidel De La Garza MD [address] [place], [place] [phone] Consulting Hematology/Oncology 05/15/18 Halima Cohen ([place]n), [place] [address] [place], [place] [phone] Specialty Blanket Binder HOSPICE & PALLIATIVE MEDICINE 05/15/18 Nargis Ortega RN [address] [place], [place] [phone] Regional Refrigerated Cdl Truck Driver 05/27/21 Tour Agent Relationship Specialty Start Date End Date Ovidio Vincent MD [address] [place], [place] [id number] PCP - General Family Practice 03/16/21 Becky Leija MD, [address] [place], [place] 505641 Physician Radiation Oncology 11/24/17 Lola Apple RN Specialty Blanket Binder Oncology 12/08/17 Tato Castro [address] [place] [address] [phone] Pain Management Anesthesiology 01/30/18 Santos Woods MD [address] [facility] [address] [address] Physician Blood and Marrow Transplant 05/04/18 Fidel De La Garza MD [address] [place] [address] Consulting Hematology/Oncology 05/15/18 Halima [place] ([place]), [place] [address] [place], [place] [phone] Specialty Blanket Binder HOSPICE & PALLIATIVE MEDICINE 05/15/18 Nargis Ortega RN [address] [place] [address] Regional Refrigerated Cdl Truck Driver 05/27/21 Tour Agent Relationship Specialty Start Date End Date Ovidio Vincent MD [address] [place], [place] 413571 PCP - General Family Practice 03/16/21 Becky Leija MD, [address] [place] [address] Physician Radiation Oncology 11/24/17 Lola Apple RN Specialty Blanket Binder Oncology 12/08/17 Tato Castro [address] [place], [place] [phone] Pain Management Anesthesiology 01/30/18 Santos Woods MD [address] [place] [address] Physician Blood and Marrow Transplant 05/04/18 Fidel De La Garza MD [address] [place] [address] Consulting Hematology/Oncology 05/15/18 Halima Cohen ([place]), [place] [address] [place], [place] [phone] Specialty Blanket Binder HOSPICE & PALLIATIVE MEDICINE 05/15/18 Nargis Ortega RN [address] [place] [address] Regional Refrigerated Cdl Truck Driver 05/27/21 Tour Agent Relationship Specialty Start Date End Date Ovidio Vincent MD [address] [place], [place] [id number] PCP - General Family Practice 03/16/21 Becky Leija MD, MD [address] [place] [address] Physician Radiation Oncology 11/24/17 Doup, Lola, RN Specialty Blanket Binder Oncology 12/08/17 Tato Castro [address] [place], [place] [phone] Pain Management Anesthesiology 01/30/18 Santos Woods MD [address] [phone] Physician Blood and Marrow Transplant 05/04/18 Fidel De La Garza MD [address] [place], [place] [phone] Consulting Hematology/Oncology 05/15/18 [place] ([place]), [place] [address] [place] [address] Specialty Blanket Binder HOSPICE & PALLIATIVE MEDICINE 05/15/18 Nargis Ortega RN [address] [place] [address] Regional Refrigerated Cdl Truck Driver 05/27/21 Tour Agent Relationship Specialty Start Date End Date Ovidio Vincent MD [address] [place], [place] 824141 PCP - General Family Practice 03/16/21 Becky Leija MD, MD [address] [place] [address] Physician Radiation Oncology 11/24/17 Lola Apple RN Specialty Blanket Binder Oncology 12/08/17 Tato Castro [address] [place], [place] [phone] Pain Management Anesthesiology 01/30/18 Santos Woods MD [address] [address] Physician Blood and Marrow Transplant 05/04/18 Fidel De La Garza MD [address] [place] [address] Consulting Hematology/Oncology 05/15/18 Halima Cohen (Rn), [place] [address] [place], [place] [phone] Specialty Blanket Binder HOSPICE & PALLIATIVE MEDICINE 05/15/18 Nargis Ortega, RN [address] [place] [address] Regional Refrigerated Cdl Truck Driver 05/27/21 Tour Agent Relationship Specialty Start Date End Date Ovidio Vincent MD [address] [place], [place] 255511 PCP - General Family Practice 03/16/21 Becky Leija MD, [address] [place], [place] [phone] Physician Radiation Oncology 11/24/17 Lola Apple RN Specialty Blanket Binder Oncology 12/08/17 Tato Castro [address] [place] [address] [phone] Pain Management Anesthesiology 01/30/18 Santos Woods MD [address] [address] Physician Blood and Marrow Transplant 05/04/18 Fidel De La Garza MD [address] [place] [address] Consulting Hematology/Oncology 05/15/18 Halima [place] ([place]), [place] [address] [place] [address] Specialty Blanket Binder HOSPICE & PALLIATIVE MEDICINE 05/15/18 Nargis Oretga, RN [address] [place] [address] Regional Refrigerated Cdl Truck Driver 05/27/21 Tour Agent Relationship Specialty Start Date End Date Ovidio Vincent MD [address] [place], [place] [id number] PCP - General Family Practice 03/16/21 Becky Leija MD, [address] [place], [place] 882130 [phone] Physician Radiation Oncology 11/24/17 Lola Apple, RN Specialty Blanket Binder Oncology 12/08/17 [facility] [address] [place], [place] 707[address] Pain Management Anesthesiology 01/30/18 Santos Woods MD [address] [phone] Physician Blood and Marrow Transplant 05/04/18 Fidel De La Garza MD [address] [place] [address] Consulting Hematology/Oncology 05/15/18 Hal[place] ([place]), [place] [address] [place], [place] [phone] Specialty Blanket Binder HOSPICE & PALLIATIVE MEDICINE 05/15/18 Nargis Ortega, RN [address] [place], [place] [phone] Regional Refrigerated Cdl Truck Driver 05/27/21 Tour Agent Relationship Specialty Start Date End Date Ovidio Vincent MD [address] [place] [address] PCP - General Family Practice 03/16/21 Becky Leija MD, [address] [place] [address] Physician Radiation Oncology 11/24/17 Lola Apple, RN Specialty Blanket Binder Oncology 12/08/17 [facility] [address] [place], [place] [phone] Pain Management Anesthesiology 01/30/18 Santos Woods MD [address] [address] Physician Blood and Marrow Transplant 05/04/18 Fidel De La Garza MD [address] [place] [address] Consulting Hematology/Oncology 05/15/18 Halima Cohen ([place]n), [place] [address] [place], [place] [phone] Specialty Blanket Binder HOSPICE & PALLIATIVE MEDICINE 05/15/18 Nargis Ortega RN [address] [place], [place] [phone] Regional Refrigerated Cdl Truck Driver 05/27/21 Tour Agent Relationship Specialty Start Date End Date Ovidio Vincent MD [address] [place], [place] [id number] PCP - General Family Practice 03/16/21 Becky Leija MD, [address] [place], [place] [phone] Physician Radiation Oncology 11/24/17 Lola Apple RN Specialty Blanket Binder Oncology 12/08/17 Tato Castro [address] [place], [place] [phone] Pain Management Anesthesiology 01/30/18 Santos Woods MD [address] [address] Physician Blood and Marrow Transplant 05/04/18 Fidel De La Garza MD [address] [place] [address] Consulting Hematology/Oncology 05/15/18 Hal[place] ([place]), [place] [address] [place], [place] [phone] Specialty Blanket Binder HOSPICE & PALLIATIVE MEDICINE 05/15/18 Nargis Ortega RN [address] [place] [address] Regional Refrigerated Cdl Truck Driver 05/27/21 Tour Agent Relationship Specialty Start Date End Date Ovidio Vincent MD [address] [place] [address] PCP - General Family Practice 03/16/21 Becky Leija MD, MD [address] [place] [address] Physician Radiation Oncology 11/24/17 Lola Apple RN Specialty Blanket Binder Oncology 12/08/17 [facility] [address] [place], [place] 477371 Pain Management Anesthesiology 01/30/18 Santos Woods MD [address] [address] [place] [address] Physician Blood and Marrow Transplant 05/04/18 Fidel De La Garza MD [address] [place], [place] [phone] Consulting Hematology/Oncology 05/15/18 Hal[place] ([place]), [place] [address] [place] [id number] Specialty Blanket Binder HOSPICE & PALLIATIVE MEDICINE 05/15/18 Nargis Ortega, RN [address] [place] [address] Regional Refrigerated Cdl Truck Driver 05/27/21 Tour Agent Relationship Specialty Start Date End Date Ovidio Vincent MD [address] [place] [address] PCP - General Family Practice 03/16/21 Becky Leija MD, MD [address] [place] [address] Physician Radiation Oncology 11/24/17 Lola Apple RN Specialty Blanket Binder Oncology 12/08/17 Tato Castro [address] [place], [place] 537111 Pain Management Anesthesiology 01/30/18 Santos Woods MD [address] [id number] Physician Blood and Marrow Transplant 05/04/18 Fidel De La Garza MD [address] [place], [place] [phone] Consulting Hematology/Oncology 05/15/18 Halima Cohen (Rn), [place] [address] [place], [place] [phone] Specialty Blanket Binder HOSPICE & PALLIATIVE MEDICINE 05/15/18 Nargis Ortega RN [address] [place] [address] [phone] Regional Refrigerated Cdl Truck Driver 05/27/21 Tour Agent Relationship Specialty Start Date End Date Ovidio Vincent MD [address] [place], [place] [id number] PCP - General Family Practice 03/16/21 Becky Leija MD, [address] [place], [place] [id number] Physician Radiation Oncology 11/24/17 Lola Apple RN Specialty Blanket Binder Oncology 12/08/17 04/25/22 Tato Castro [address] [place] [address] [phone] Pain Management Anesthesiology 01/30/18 Santos Woods MD [address] [address] Physician Blood and Marrow Transplant 05/04/18 Fidel De La Garza MD [address] [place] [address] Consulting Hematology/Oncology 05/15/18 Halima Cohen (Rn), [place] [address] [place], [place] [phone] Specialty Blanket Binder HOSPICE & PALLIATIVE MEDICINE 05/15/18 Nargis Ortega RN [address] [place] [address] Regional Refrigerated Cdl Truck Driver 05/27/21 Ela Alvarez MD [address] [place] [address] Hematology/Oncology 04/26/22 Nancie Low RN [address] [place] [address] Specialty Blanket Binder Hematology/Oncology 04/26/22 Tour Agent Relationship Specialty Start Date End Date Ovidio Vincent MD [address] [place] [address] PCP - General Family Practice 03/16/21 Becky Leija MD, [address] [place] [address] Physician Radiation Oncology 11/24/17 Tato Castro [address] [place], [place] [phone] Pain Management Anesthesiology 01/30/18 Santos Woods MD [address] [address] Physician Blood and Marrow Transplant 05/04/18 Fidel De La Garza MD [address] [place], [place] [phone] Consulting Hematology/Oncology 05/15/18 Halima [place] ([place]n), [place] [address] [place], [place] [phone] Specialty Blanket Binder HOSPICE & PALLIATIVE MEDICINE 05/15/18 Nargis Ortega RN [address] [place] [address] Regional Refrigerated Cdl Truck Driver 05/27/21 Ela Alvarez MD [address] [facility] [place] [address] Hematology/Oncology 04/26/22 Nancie Low, ALICIA [address] [facility] [place] [address] Specialty Blanket Binder Hematology/Oncology 04/26/22 Tour Agent Relationship Specialty Start Date End Date Ovidio Vincent MD [address] [place] [address] PCP - General Family Practice 03/16/21 Becky Leija MD, [address] [place] [address] Physician Radiation Oncology 11/24/17 Tato Castro [address] [place] [address] [phone] Pain Management Anesthesiology 01/30/18 Santos Woods MD [address] 8[address] [place] [address] Physician Blood and Marrow Transplant 05/04/18 Fidel De La Garza MD [address] [place], [place] [phone] Consulting Hematology/Oncology 05/15/18 Halima [place] ([place]n), [place] [address] [place], [place] [phone] Specialty Blanket Binder HOSPICE & PALLIATIVE MEDICINE 05/15/18 Nargis Ortega, RN [address] [place] [address] Regional Refrigerated Cdl Truck Driver 05/27/21 Ela Alvarez MD [address] [facility] [place] [address] Hematology/Oncology 04/26/22 Nancie Low, ALICIA [address] [place] [address] Specialty Blanket Binder Hematology/Oncology 04/26/22 Tour Agent Relationship Specialty Start Date End Date Ovidio Vincent MD [address] [place] [address] PCP - General Family Practice 03/16/21 Becky Leija MD, [address] [place] [address] Physician Radiation Oncology 11/24/17 Tato Castro [address] [place] [address] Pain Management Anesthesiology 01/30/18 Santos Woods MD [address] [address] Physician Blood and Marrow Transplant 05/04/18 Fidel De La Garza MD [address] [place] [address] Consulting Hematology/Oncology 05/15/18 Halima [place] ([place]n), [place] [address] [place], [place] [phone] Specialty Blanket Binder HOSPICE & PALLIATIVE MEDICINE 05/15/18 Nargis Ortega RN [address] [place], [place] [phone] Regional Refrigerated Cdl Truck Driver 05/27/21 Ela Alvarez MD [address] [place] [address] Hematology/Oncology 04/26/22 Nancie Low RN [address] [place] [address] Specialty Blanket Binder Hematology/Oncology 04/26/22 Tour Agent Relationship Specialty Start Date End Date Ovidio Vincent MD [address] [place] [address] PCP - General Family Practice 03/16/21 Becky Leija MD, [address] [place] [address] Physician Radiation Oncology 11/24/17 Tato Castro [address] [place], [place] 307991 Pain Management Anesthesiology 01/30/18 Santos Woods MD [address] [place] [address] Physician Blood and Marrow Transplant 05/04/18 Fidel De La Garza MD [address] [place], [place] [phone] Consulting Hematology/Oncology 05/15/18 Halima Cohen ([place]n), [place] [address] [place], [place] [phone] Specialty Blanket Binder HOSPICE & PALLIATIVE MEDICINE 05/15/18 Nargis Ortega, RN [address] [place], [place] [phone] Regional Refrigerated Cdl Truck Driver 05/27/21 Ela Alvarez MD [address] [place] [address] Hematology/Oncology 04/26/22 Nancie Low, ALICIA [address] [place] [address] Specialty Blanket Binder Hematology/Oncology 04/26/22 Tour Agent Relationship Specialty Start Date End Date Ovidio Vincent MD [address] [place] [address] PCP - General Family Medicine 03/16/21 Becky Leija MD, [address] [place] [address] Physician Radiation Oncology 11/24/17 [facility] [address] [place], [place] 174361 Pain Management Anesthesiology 01/30/18 Santos Woods MD 0775 [facility] [address] [place], [place] 4743195 Physician Blood and Marrow Transplant 05/04/18 Fidel De La Garza MD [address] [place], [place] [phone] Consulting Hematology/Oncology 05/15/18 Halima [place] ([place]n), [place] [address] [place], [place] [phone] Specialty Blanket Binder HOSPICE & PALLIATIVE MEDICINE 05/15/18 Nargis Ortega RN [address] [place], [place] [phone] Regional Refrigerated Cdl Truck Driver 05/27/21 Ela Alvarez MD [address] [place] [address] Hematology/Oncology 04/26/22 Nancie Low, ALICIA [address] [place] [address] Specialty Blanket Binder Hematology/Oncology 04/26/22 Tour Agent Relationship Specialty Start Date End Date Ovidio Vincent MD [address] [place] [address] PCP - General Family Medicine 03/16/21 Becky Leija MD, [address] [place] [address] Physician Radiation Oncology 11/24/17 Tato Castro [address] [place], [place] 519421 Pain Management Anesthesiology 01/30/18 Santos Woods MD [address] [place], [place] 5330895 Physician Blood and Marrow Transplant 05/04/18 Fidel De La Garza MD [address] [place] [address] Consulting Hematology/Oncology 05/15/18 Halima Cohen (Rn), [place] [address] [place] [address] Specialty Blanket Binder HOSPICE & PALLIATIVE MEDICINE 05/15/18 Nargis Ortega, RN [address] [place], [place] [phone] Regional Refrigerated Cdl Truck Driver 05/27/21 Ela Alvarez MD [address] [place] [address] Hematology/Oncology 04/26/22 Nancie Low RN [address] [place] [address] Specialty Blanket Binder Hematology/Oncology 04/26/22 Tour Agent Relationship Specialty Start Date End Date Ovidio Vincent MD [address] [place] [address] PCP - General Family Medicine 03/16/21 Becky Leija MD, [address] [place] [address] Physician Radiation Oncology 11/24/17 Tato Castro [address] [place], [place] [phone] Pain Management Anesthesiology 01/30/18 Santos Woods MD [facility]00 [facility] [place] [address] Physician Blood and Marrow Transplant 05/04/18 Fidel De La Garza MD [address] [place] [address] Consulting Hematology/Oncology 05/15/18 Halima Cohen (Rn), [place] [address] [place], [place] [phone] Specialty Blanket Binder HOSPICE & PALLIATIVE MEDICINE 05/15/18 Nargis Ortega RN [address] [place], [place] [phone] Regional Refrigerated Cdl Truck Driver 05/27/21 Ela Alvarez MD [address] [place] [address] Hematology/Oncology 04/26/22 Nancie Low RN [address] [place] [address] Specialty Blanket Binder Hematology/Oncology 04/26/22 Tour Agent Relationship Specialty Start Date End Date Ovidio Vincent MD [address] [place] [address] PCP - General Family Medicine 03/16/21 Becky Leija MD, [address] [place] [address] Physician Radiation Oncology 11/24/17 Tato Castro [address] [place] [address] Pain Management Anesthesiology 01/30/18 Santos Woods MD [address] [address] Physician Blood and Marrow Transplant 05/04/18 Fidel De La Garza MD 1790 [facility] [place] [address] Consulting Hematology/Oncology 05/15/18 Halima Cohen (Rn), [place] [address] [place], [place] [phone] Specialty Blanket Binder HOSPICE & PALLIATIVE MEDICINE 05/15/18 Nargis Ortega, RN [address] [place] [phone] Regional Refrigerated Cdl Truck Driver 05/27/21 Ela Alvarez MD [address] [place] [address] Hematology/Oncology 04/26/22 Nancie Low RN [address] [place] [address] Specialty Blanket Binder Hematology/Oncology 04/26/22 Tour Agent Relationship Specialty Start Date End Date Ovidio Vincent MD [address] [place] [address] PCP - General Family Medicine 03/16/21 Becky Leija MD, [address] [place] [address] Physician Radiation Oncology 11/24/17 Tato Castro [address] [place] [address] Pain Management Anesthesiology 01/30/18 Santos Woods MD [address] [address] Physician Blood and Marrow Transplant 05/04/18 Fidel De La Garza MD 1940 [place] [address] Consulting Hematology/Oncology 05/15/18 Halima [place] ([place]n), [place] [address] [place], [place] [phone] Specialty Blanket Binder HOSPICE & PALLIATIVE MEDICINE 05/15/18 Nargis Ortega RN [address] [place] [address] Regional Refrigerated Cdl Truck Driver 05/27/21 Ela Alvarez MD [address] [place], [place] 949517 [phone] Hematology/Oncology 04/26/22 Nancie Low RN [address] [place] [address] Specialty Blanket Binder Hematology/Oncology 04/26/22 Tour Agent Relationship Specialty Start Date End Date Ovidio Vincent MD [address] [place] [address] PCP - General Family Medicine 03/16/21 Becky Leija MD, [address] [place] [address] Physician Radiation Oncology 11/24/17 Tato Castro [address] [place], [place] [phone] Pain Management Anesthesiology 01/30/18 Santos Woods MD [address] [address] Physician Blood and Marrow Transplant 05/04/18 Fidel De La Garza MD [address] [place], [place] 6218695 Consulting Hematology/Oncology 05/15/18 Halima Cohen (Rn), [place] [address] [place], [place] [phone] Specialty Blanket Binder HOSPICE & PALLIATIVE MEDICINE 05/15/18 Nargis Ortega, ALICIA [address] [place] [address] Regional Refrigerated Cdl Truck Driver 05/27/21 Ela Alvarez MD [address] [place] [address] Hematology/Oncology 04/26/22 Nancie Low RN [address] [place], [place] 795511 Specialty Blanket Binder Hematology/Oncology 04/26/22 Tour Agent Relationship Specialty Start Date End Date Ovidio Vincent MD [address] [place] [address] PCP - General Family Medicine 03/16/21 Becky Leija MD, [address] [place] [address] Physician Radiation Oncology 11/24/17 Tato Castro [address] [place] [address] [phone] Pain Management Anesthesiology 01/30/18 Santos Woods MD [address] [facility] [place] [address] Physician Blood and Marrow Transplant 05/04/18 Fidel De La Garza MD [address] [place], [place] [phone] Consulting Hematology/Oncology 05/15/18 Halima Cohen (Rn), [place] [address] [place] [address] Specialty Blanket Binder HOSPICE & PALLIATIVE MEDICINE 05/15/18 Nargis Ortega, RN [address] [place] [address] Regional Refrigerated Cdl Truck Driver 05/27/21 Ela Alvarez MD [address] [place] [address] Hematology/Oncology 04/26/22 Nancie Low, ALICIA [address] [facility] [place] [address] Specialty Blanket Binder Hematology/Oncology 04/26/22 Tour Agent Relationship Specialty Start Date End Date Ovidio Vincent MD [address] [place] [address] PCP - General Family Medicine 03/16/21 Becky Leija MD, MD [address] [place] [address] Physician Radiation Oncology 11/24/17 Tato Castro De La Garza [address] [place], [place] 743281 Pain Management Anesthesiology 01/30/18 Santos Woods MD [facility]21 [facility] [place] [address] Physician Blood and Marrow Transplant 05/04/18 Fidel De La Garza MD [address] [place], [place] 7109395 Consulting Hematology/Oncology 05/15/18 Halima [place] (Rn), [place] [address] [place], [place] [phone] Specialty Blanket Binder HOSPICE & PALLIATIVE MEDICINE 05/15/18 Nargis Ortega, RN [address] [place], [place] [phone] Regional Refrigerated Cdl Truck Driver 05/27/21 Ela Alvarez MD [address] [place] [address] Hematology/Oncology 04/26/22 Nancie Low, ALICIA [address] [place] [address] Specialty Blanket Binder Hematology/Oncology 04/26/22 Tour Agent Relationship Specialty Start Date End Date Ovidio Vincent MD [address] [place] [address] PCP - General Family Medicine 03/16/21 Becky Leija MD, [address] [place] [address] Physician Radiation Oncology 11/24/17 Tato Castro Wheeler [address] [place] [address] Pain Management Anesthesiology 01/30/18 Santos Woods MD 9500 [facility] [address] [place], [place] [phone] Physician Blood and Marrow Transplant 05/04/18 Fidel De La Garza MD [address] [place], [place] [phone] Consulting Hematology/Oncology 05/15/18 Halima [place] (Rn), [place] [address] [place], [place] [phone] Specialty Blanket Binder HOSPICE & PALLIATIVE MEDICINE 05/15/18 Nargis Ortega, RN [address] [place], [place] [phone] Regional Refrigerated Cdl Truck Driver 05/27/21 Ela Alvarez MD [address] [place] [address] Hematology/Oncology 04/26/22 Nancie Low RN [address] [place] [address] Specialty Blanket Binder Hematology/Oncology 04/26/22 Tour Agent Relationship Specialty Start Date End Date Ovidio Vincent MD [address] [place] [address] PCP - General Family Medicine 03/16/21 Becky Leija MD, [address] [place] [address] Physician Radiation Oncology 11/24/17 Tato Castro [address] [place], [place] [phone] Pain Management Anesthesiology 01/30/18 Santos Woods MD [address] [address] Physician Blood and Marrow Transplant 05/04/18 Fidel De La Garza MD [address] [place], [place] 4522195 Consulting Hematology/Oncology 05/15/18 Halima Cohen (Rn), [place] [address] [place], [place] [phone] Specialty Blanket Binder HOSPICE & PALLIATIVE MEDICINE 05/15/18 Nargis Ortega, RN [address] [place], [place] [phone] Regional Refrigerated Cdl Truck Driver 05/27/21 Ela Alvarez MD [address] [place] [address] Hematology/Oncology 04/26/22 Nancie Low RN [address] [place] [address] Specialty Blanket Binder Hematology/Oncology 04/26/22 Tour Agent Relationship Specialty Start Date End Date Ovidio Vincent MD [address] [place] [address] PCP - General Family Medicine 03/16/21 Becky Leija MD, [address] [facility] [place] [address] Physician Radiation Oncology 11/24/17 Tato Castro [address] [place], [place] [phone] Pain Management Anesthesiology 01/30/18 Santos Woods MD [address] [address] Physician Blood and Marrow Transplant 05/04/18 Fidel De La Garza MD 2590 [facility] [address] Consulting Hematology/Oncology 05/15/18 Halima Cohen (Rn), [place] [address] [place], [place] [phone] Specialty Blanket Binder HOSPICE & PALLIATIVE MEDICINE 05/15/18 Nargis Ortega, RN [address] [place], [place] [phone] Regional Refrigerated Cdl Truck Driver 05/27/21 Ela Alvarez MD [address] [place] [address] Hematology/Oncology 04/26/22 Nancie Low RN [address] [place] [address] Specialty Blanket Binder Hematology/Oncology 04/26/22 Tour Agent Relationship Specialty Start Date End Date Ovidio Vincent MD [address] [place] [address] PCP - General Family Medicine 03/16/21 Becky Leija MD, [address] [place] [address] Physician Radiation Oncology 11/24/17 Tato Castro [address] [place] [address] Pain Management Anesthesiology 01/30/18 Santos Woods MD [address] [address] Physician Blood and Marrow Transplant 05/04/18 Fidel De La Garza MD [address] [place] [address] Consulting Hematology/Oncology 05/15/18 Halima [place] (Rn), [place] [address] [place], [place] 3191006 Specialty Blanket Binder HOSPICE & PALLIATIVE MEDICINE 05/15/18 Nargis Ortega RN [address] [place], [place] [phone] Regional Refrigerated Cdl Truck Driver 05/27/21 Ela Alvarez MD [address] [place] [address] Hematology/Oncology 04/26/22 Nancie Low RN [address] [place] [address] Specialty Blanket Binder Hematology/Oncology 04/26/22 Tour Agent Relationship Specialty Start Date End Date Ovidio Vincent MD [address] [place] [address] PCP - General Family Medicine 03/16/21 Becky Leija MD, [address] [place] [address] Physician Radiation Oncology 11/24/17 Tato Castro [address] [place] [address] Pain Management Anesthesiology 01/30/18 Santos Woods MD [address] [address] Physician Blood and Marrow Transplant 05/04/18 Fidel De La Garza MD [address] [place] [address] Consulting Hematology/Oncology 05/15/18 Halima Cohen (Rn), [place] [address] [place], [place] [phone] Specialty Blanket Binder HOSPICE & PALLIATIVE MEDICINE 05/15/18 Nargis Ortega RN [address] [place] [address] Regional Refrigerated Cdl Truck Driver 05/27/21 Ela Alvarez MD [address] [place] [address] Hematology/Oncology 04/26/22 Nancie Low RN [address] [place] [address] Specialty Blanket Binder Hematology/Oncology 04/26/22 Tour Agent Relationship Specialty Start Date End Date Ovidio Vincent MD [address] [place] [address] PCP - General Family Medicine 03/16/21 Becky Leija MD, [address] [place] [address] Physician Radiation Oncology 11/24/17 Tato Castro [address] [place], [place] 121111 Pain Management Anesthesiology 01/30/18 Santos Woods MD [address] [place] [address] Physician Blood and Marrow Transplant 05/04/18 Fidel De La Garza MD [address] [place] [address] Consulting Hematology/Oncology 05/15/18 Halima Cohen (Rn), [place] [address] [place], [place] 8088706 Specialty Blanket Binder HOSPICE & PALLIATIVE MEDICINE 05/15/18 Nargis Ortega RN [address] [place] [address] Regional Refrigerated Cdl Truck Driver 05/27/21 Ela Alvarez MD [address] [facility] [place] 45240820 [phone] Hematology/Oncology 04/26/22 Nancie Low RN [address] [facility] [place] [address] Specialty Blanket Binder Hematology/Oncology 04/26/22 Tour Agent Relationship Specialty Start Date End Date Ovidio Vincent MD [address] [place] [address] PCP - General Family Medicine 03/16/21 Becky Leija MD, [address] [place], [place] 987731 [phone] Physician Radiation Oncology 11/24/17 Tato Castro [address] [place] [address] [phone] Pain Management Anesthesiology 01/30/18 Santos Woods MD [address] [phone] Physician Blood and Marrow Transplant 05/04/18 Fidel De La Garza MD [address] [place], [place] [phone] Consulting Hematology/Oncology 05/15/18 Halima Cohen (Rn), [place] [address] [place], [place] [phone] Specialty Blanket Binder HOSPICE & PALLIATIVE MEDICINE 05/15/18 Nargis Ortega, RN [address] [place] [address] Regional Refrigerated Cdl Truck Driver 05/27/21 Ela Alvarez MD [address] [facility] [place] [address] Hematology/Oncology 04/26/22 Nancie Low RN [address] [facility] [place] [address] Specialty Blanket Binder Hematology/Oncology 04/26/22 Tour Agent Relationship Specialty Start Date End Date Ovidio Vincent MD [address] [place] [address] PCP - General Family Medicine 03/16/21 Becky Leija MD, MD [address] [place] [address] Physician Radiation Oncology 11/24/17 Tato Castro [address] [place] [address] Pain Management Anesthesiology 01/30/18 Santos Woods MD [address] [id number] Physician Blood and Marrow Transplant 05/04/18 Fidel De La Garza MD [address] [place], [place] [phone] Consulting Hematology/Oncology 05/15/18 Halima Cohen ([place]), [place] [address] [place], [place] [phone] Specialty Blanket Binder HOSPICE & PALLIATIVE MEDICINE 05/15/18 Ela Alvarez MD [address] [place] [address] Hematology/Oncology 04/26/22 Nancie Low, ALICIA [address] [place] [address] Specialty Blanket Binder Hematology/Oncology 04/26/22 Mara Guardado, mule operatorRegional Refrigerated Cdl Truck Driver 10/21/22 Tour Agent Relationship Specialty Start Date End Date Ovidio Vincent MD [address] [place] [address] PCP - General Family Medicine 03/16/21 Becky Leija MD, [address] [place] [address] Physician Radiation Oncology 11/24/17 Tato Castro [address] [place] [address] Pain Management Anesthesiology 01/30/18 Santos Woods MD [address] [place] [address] Physician Blood and Marrow Transplant 05/04/18 Fidel De La Garza MD [address] [place] [address] Consulting Hematology/Oncology 05/15/18 Halima Cohen (Rn), [place] [address] [place], [place] [phone] Specialty Blanket Binder HOSPICE & PALLIATIVE MEDICINE 05/15/18 Ela Alvarez MD [address] [place] [address] Hematology/Oncology 04/26/22 Nancie Low, ALICIA [address] [place] [address] Specialty Blanket Binder Hematology/Oncology 04/26/22 Mara Guardado, mule operatorRegional Refrigerated Cdl Truck Driver 10/21/22 Tour Agent Relationship Specialty Start Date End Date Ovidio Vincent MD [address] [place] [address] PCP - General Family Medicine 03/16/21 Becky Leija MD, [address] [facility] [place] [address] Physician Radiation Oncology 11/24/17 Tato Castro [address] [place] [address] Pain Management Anesthesiology 01/30/18 Santos Woods MD [address] [address] Physician Blood and Marrow Transplant 05/04/18 Fidel De La Garza MD [address] [facility] [address] Consulting Hematology/Oncology 05/15/18 Halima Cohen (Rn), [place] [address] [place], [place] [phone] Specialty Blanket Binder HOSPICE & PALLIATIVE MEDICINE 05/15/18 Ela Alvarez MD [address] [place] [address] Hematology/Oncology 04/26/22 Nancie Low RN [address] [place] [address] Specialty Blanket Binder Hematology/Oncology 04/26/22 Mara Guardado, mule operatorRegional Refrigerated Cdl Truck Driver 10/21/22 Tour Agent Relationship Specialty Start Date End Date Ovidio Vincent MD [address] [place] [address] PCP - General Family Medicine 03/16/21 Becky Leija MD, [address] [place] [address] Physician Radiation Oncology 11/24/17 Tato Castro [address] [place] [address] Pain Management Anesthesiology 01/30/18 Santos Woods MD [address] [address] Physician Blood and Marrow Transplant 05/04/18 Fidel De La Garza MD [address] [place] [address] Consulting Hematology/Oncology 05/15/18 Halima Cohen (Rn), [place] [address] [place], [place] [phone] Specialty Blanket Binder HOSPICE & PALLIATIVE MEDICINE 05/15/18 Ela Alvarez MD [address] [facility] [place] [address] Hematology/Oncology 04/26/22 Nancie Low RN [address] [place] [address] Specialty Blanket Binder Hematology/Oncology 04/26/22 Mara Guardado, mule operatorRegional Refrigerated Cdl Truck Driver 10/21/22 Tour Agent Relationship Specialty Start Date End Date Ovidio Vincent MD [address] [place] [address] PCP - General Family Medicine 03/16/21 Becky Leija MD, [address] [place] [address] Physician Radiation Oncology 11/24/17 Tato Castro [address] [place] [address] Pain Management Anesthesiology 01/30/18 Santos Woods MD [address] [address] Physician Blood and Marrow Transplant 05/04/18 Fidel De La Garza MD [address] [place] [address] Consulting Hematology/Oncology 05/15/18 Halima [place] ([place]n), [place] [address] [place], [place] [phone] Specialty Blanket Binder HOSPICE & PALLIATIVE MEDICINE 05/15/18 Ela Alvarez MD [address] [place] [address] Hematology/Oncology 04/26/22 Nancie Low RN [address] [place] [address] Specialty Blanket Binder Hematology/Oncology 04/26/22 Mara Guardado, mule operatorRegional Refrigerated Cdl Truck Driver 10/21/22 Tour Agent Relationship Specialty Start Date End Date Ovidio Vincent MD [address] [place] [address] PCP - General Family Medicine 03/16/21 Becky Leija MD, [address] [place] [address] Physician Radiation Oncology 11/24/17 Tato Castro [address] [place] [address] Pain Management Anesthesiology 01/30/18 Santos Woods MD [address] [place], [place] [phone] Physician Blood and Marrow Transplant 05/04/18 Fidel De La Garza MD [address] [place] [address] Consulting Hematology/Oncology 05/15/18 Halima Cohen (Rn), [place] [address] [place], [place] [phone] Specialty Blanket Binder HOSPICE & PALLIATIVE MEDICINE 05/15/18 Ela Alvarez MD [address] [place] [address] Hematology/Oncology 04/26/22 Nancie Low, ALICIA [address] [place] [address] Specialty Blanket Binder Hematology/Oncology 04/26/22 Mara Guardado, mule operatorRegional Refrigerated Cdl Truck Driver 10/21/22 Tour Agent Relationship Specialty Start Date End Date Ovidio Vincent MD [address] [place] [address] PCP - General Family Medicine 03/16/21 Becky Leija MD, [address] [place] [address] Physician Radiation Oncology 11/24/17 Tato Castro [address] [place] [address] Pain Management Anesthesiology 01/30/18 Santos Woods MD [address] [id number] Physician Blood and Marrow Transplant 05/04/18 Fidel De La Garza MD [address] [place], [place] [phone] Consulting Hematology/Oncology 05/15/18 Halima Cohen ([place]n), [place] [address] [place], [place] [phone] Specialty Blanket Binder HOSPICE & PALLIATIVE MEDICINE 05/15/18 Ela Alvarez MD [address] [place] [address] Hematology/Oncology 04/26/22 Nancie Low, ALICIA [address] [place] [address] Specialty Blanket Binder Hematology/Oncology 04/26/22 Mara Guardado, mule operatorRegional Refrigerated Cdl Truck Driver 10/21/22 Tour Agent Relationship Specialty Start Date End Date Ovidio Vincent MD [address] [place] [address] PCP - General Family Medicine 03/16/21 Becky Leija MD, [address] [place] [address] Physician Radiation Oncology 11/24/17 Tato Castro [address] [place], [place] 665951 Pain Management Anesthesiology 01/30/18 Santos Woods MD [address] [address] Physician Blood and Marrow Transplant 05/04/18 Fidel De La Garza MD [address] [place] [address] Consulting Hematology/Oncology 05/15/18 Halima Cohen ([place]n), [place] [address] [place] [address] Specialty Blanket Binder HOSPICE & PALLIATIVE MEDICINE 05/15/18 Ela Alvarez MD [address] [facility] [place] [address] Hematology/Oncology 04/26/22 Nancie oLw, ALICIA [address] [facility] [place] [address] Specialty Blanket Binder Hematology/Oncology 04/26/22 Mara Guardado, mule operatorRegional Refrigerated Cdl Truck Driver 10/21/22 Tour Agent Relationship Specialty Start Date End Date Ovidio Vincent MD [address] [place] [address] PCP - General Family Medicine 03/16/21 Becky Leija MD, [address] [place] [address] Physician Radiation Oncology 11/24/17 Tato Castro [address] [place] [address] Pain Management Anesthesiology 01/30/18 Santos Woods MD [address] [address] Physician Blood and Marrow Transplant 05/04/18 Fidel De La Garza MD [address] [place] [address] Consulting Hematology/Oncology 05/15/18 Halima [place] ([place]n), [place] [address] [address] [place], [place] [phone] Specialty Blanket Binder HOSPICE & PALLIATIVE MEDICINE 05/15/18 Ela Alvarez MD [address] [place] [address] Hematology/Oncology 04/26/22 Nancie Low RN [address] [place] [address] Specialty Blanket Binder Hematology/Oncology 04/26/22 Mara Guardado, mule operatorRegional Refrigerated Cdl Truck Driver 10/21/22 Tour Agent Relationship Specialty Start Date End Date Ovidio Vincent MD [address] [place] [address] PCP - General Family Medicine 03/16/21 Becky Leija MD, [address] [place] [address] Physician Radiation Oncology 11/24/17 Tato Castro [address] [place] [address] Pain Management Anesthesiology 01/30/18 Santos Woods MD [address] [place] [address] Physician Blood and Marrow Transplant 05/04/18 Fidel De La Garza MD [address] [place] [address] Consulting Hematology/Oncology 05/15/18 Halima [place] ([place]n), [place] [address] [place], [place] [phone] Specialty Blanket Binder HOSPICE & PALLIATIVE MEDICINE 05/15/18 Ela Alvarez MD [address] [facility] [place] [address] Hematology/Oncology 04/26/22 Nancie Low RN [address] [place] [address] Specialty Blanket Binder Hematology/Oncology 04/26/22 Mara Guardado, mule operatorRegional Refrigerated Cdl Truck Driver 10/21/22 Tour Agent Relationship Specialty Start Date End Date Ovidio Vincent MD [address] [place] [address] PCP - General Family Medicine 03/16/21 Becky Leija MD, [address] [place] [address] Physician Radiation Oncology 11/24/17 Tato Castro [address] [place] [address] Pain Management Anesthesiology 01/30/18 Santos Woods MD [address] [address] Physician Blood and Marrow Transplant 05/04/18 Fidel De La Garza MD [address] [place] [address] Consulting Hematology/Oncology 05/15/18 Halima Cohen (Rn), [place] [address] [place], [place] 7226406 Specialty Blanket Binder HOSPICE & PALLIATIVE MEDICINE 05/15/18 Ela Alvarez MD [address] [place] [address] Hematology/Oncology 04/26/22 Nancie Low RN [address] [facility] [place] [address] Specialty Blanket Binder Hematology/Oncology 04/26/22 Mara Guardado, mule operatorRegional Refrigerated Cdl Truck Driver 10/21/22 Tour Agent Relationship Specialty Start Date End Date Ovidio Vincent MD [address] [place] [address] PCP - General Family Medicine 03/16/21 Becky Leija MD, [address] [place] [address] Physician Radiation Oncology 11/24/17 Tato Castro [address] [place] [address] Pain Management Anesthesiology 01/30/18 Santos Woods MD [address] [phone] Physician Blood and Marrow Transplant 05/04/18 Fidel De La Garza MD [address] [place], [place] 0055295 Consulting Hematology/Oncology 05/15/18 Halima [place] ([place]n), [place] [address] [address] [place], [place] 0512906 Specialty Blanket Binder HOSPICE & PALLIATIVE MEDICINE 05/15/18 Ela Alvarez MD [address] [place] [address] Hematology/Oncology 04/26/22 Nancie Low RN [address] [place] [address] Specialty Blanket Binder Hematology/Oncology 04/26/22 Mara Guardado, mule operatorRegional Refrigerated Cdl Truck Driver 10/21/22 Tour Agent Relationship Specialty Start Date End Date Ovidio Vincent MD [address] [place], [place] 673251 PCP - General Family Medicine 03/16/21 Becky Leija MD, [address] [place], [place] 744021 Physician Radiation Oncology 11/24/17 Tato Castro [address] [place], [place] 133611 Pain Management Anesthesiology 01/30/18 Santos Woods MD [facility] [facility] [place] [address] Physician Blood and Marrow Transplant 05/04/18 Fidel De La Garza MD [address] [place], [place] 2115395 Consulting Hematology/Oncology 05/15/18 Halima [place] ([place]n), [place] [address] [place], [place] 3622006 Specialty Blanket Binder HOSPICE & PALLIATIVE MEDICINE 05/15/18 Ela Alvarez MD [address] [place] [address] Hematology/Oncology 04/26/22 Nancie Low, ALICIA [address] [place] [address] Specialty Blanket Binder Hematology/Oncology 04/26/22 Mara Guardado, mule operatorRegional Refrigerated Cdl Truck Driver 10/21/22 Team Status: Active Member Role Status Dates Dr. Daniel Vallejo III, MD Family Provider Active Dr. Ovidio Vincent MD Primary Care Provider Active Team Status: Inactive Member Role Status Dates Dr. Ovidio Vincent MD Primary Care Provider Active Dr. Shabbir Davila MD Admit Provider, Attending Provid er Active Tour Agent Relationship Specialty Start Date End Date Ovidio Vincent MD [address] [place], [place] [id number] PCP - General Family Medicine 03/16/21 Becky Leija MD, MD [address] [place] [address] Physician Radiation Oncology 11/24/17 Tato Castro [address] [place], [place] 730051 Pain Management Anesthesiology 01/30/18 Santos Woods MD 0124 [facility] [address] [place] [address] Physician Blood and Marrow Transplant 05/04/18 Fidel De La Garza MD [address] [place], [place] 0182595 Consulting Hematology/Oncology 05/15/18 Halima [place] (Rn), [place] [address] [place], [place] 5165706 Specialty Blanket Binder HOSPICE & PALLIATIVE MEDICINE 05/15/18 Ela Alvarez MD [address] [place] [address] Hematology/Oncology 04/26/22 Nancie Low, ALICIA [address] [place] [address] Specialty Blanket Binder Hematology/Oncology 04/26/22 Mara Guardado, mule operatorRegional Refrigerated Cdl Truck Driver 10/21/22 Tour Agent Relationship Specialty Start Date End Date Ovidio Vincent MD [address] [place] [address] PCP - General Family Medicine 03/16/21 Becky Leija MD, [address] [place] [address] Physician Radiation Oncology 11/24/17 Tato Castro [address] [place], [place] 501651 Pain Management Anesthesiology 01/30/18 Santos Woods MD [address] [place], [place] 2398595 Physician Blood and Marrow Transplant 05/04/18 Fidel De La Garza MD [address] [place], [place] 9295195 Consulting Hematology/Oncology 05/15/18 Halima Cohen (Rn), [place] [address] [place] 6468106 Specialty Blanket Binder HOSPICE & PALLIATIVE MEDICINE 05/15/18 Ela Alvarez MD [address] [place], [place] 847731 Hematology/Oncology 04/26/22 Nancie Low, ALICIA [address] [facility] [place] [address] Specialty Blanket Binder Hematology/Oncology 04/26/22 Mara uGardado, mule operatorRegional Refrigerated Cdl Truck Driver 10/21/22 Team Status: Active Member Role Status Dates Dr. Ovidio Vincent MD Primary Care Provider, Attendi Provider Active Dr. Shabbir Davila MD Referring Provider Active Team Status: Inactive Member Role Status Dates Dr. Ovidio Vincent MD Primary Care Provider Active Dr. Ovidio Coburn DO Attending Provider, Emergency Pro vider Active Team Status: Inactive Member Role Status Dates Dr. Ovidio Vincent MD Primary Care Provider Active Dr. Adam Bridges DO Emergency Provider Active Tour Agent Relationship Specialty Start Date End Date Ovidio Vincent MD [address] [place], [place] [id number] PCP - General Family Medicine 03/16/21 Becky Leija MD, [address] [place] [address] Physician Radiation Oncology 11/24/17 Tato Castro [address] [place], [place] 830411 Pain Management Anesthesiology 01/30/18 Santos Woods MD [address] 3320395 Physician Blood and Marrow Transplant 05/04/18 Fidel De La Garza MD [address] [place], [place] 7517595 Consulting Hematology/Oncology 05/15/18 Halima [place] ([place]n), [place] [address] [place] 5230306 Specialty Blanket Binder HOSPICE & PALLIATIVE MEDICINE 05/15/18 Ela Alvarez MD [address] [place] [address] Hematology/Oncology 04/26/22 Nancie Low, ALICIA [address] [place] [address] Specialty Blanket Binder Hematology/Oncology 04/26/22 Mara Guardado, mule operatorRegional Refrigerated Cdl Truck Driver 10/21/22 Tour Agent Relationship Specialty Start Date End Date Ovidio Vincent MD [address] [place] [address] PCP - General Family Medicine 03/16/21 Becky Leija MD, [address] [place] [address] Physician Radiation Oncology 11/24/17 Tato Castro [address] [place] [address] Pain Management Anesthesiology 01/30/18 Santos Woods MD [address] 7420995 Physician Blood and Marrow Transplant 05/04/18 Fidel De La Garza MD [address] [place] [address] Consulting Hematology/Oncology 05/15/18 Halima Cohen ([place]n), [place] [address] [place], [place] 5558806 Specialty Blanket Binder HOSPICE & PALLIATIVE MEDICINE 05/15/18 Ela Alvarez MD [address] [place], [place] 612561 Hematology/Oncology 04/26/22 Nancie Low RN [address] [place] [address] Specialty Blanket Binder Hematology/Oncology 04/26/22 Mara Guardado, mule operatorRegional Refrigerated Cdl Truck Driver 10/21/22 Tour Agent Relationship Specialty Start Date End Date Ovidio Vincent MD [address] [place] [address] PCP - General Family Medicine 03/16/21 Becky Leija MD, [address] [place] [address] Physician Radiation Oncology 11/24/17 Tato Castro [address] [place] [address] Pain Management Anesthesiology 01/30/18 Santos Woods MD 2109 [facility] [place] [address] Physician Blood and Marrow Transplant 05/04/18 Fidel De La Garza MD [address] [place] [address] Consulting Hematology/Oncology 05/15/18 Halima [place] (Rn), [place] [address] [place], [place] 3685106 Specialty Blanket Binder HOSPICE & PALLIATIVE MEDICINE 05/15/18 Ela Alvarez MD [address] [place], [place] 41688691 Hematology/Oncology 04/26/22 Nancie Low, ALICIA [address] [place], [place] 87630691 Specialty Blanket Binder Hematology/Oncology 04/26/22 Marta Lui, ALICIA [address] [place] [address] Regional Refrigerated Cdl Truck Driver 02/22/23 Tour Agent Relationship Specialty Start Date End Date Ovidio Vincent MD [address] [place], [place] [id number] [phone] PCP - General Family Medicine 03/16/21 Becky Leija MD, [address] [place], [place] 553195 [phone] Physician Radiation Oncology 11/24/17 Tato Castro [address] [place], [place] [phone] Pain Management Anesthesiology 01/30/18 Santos Woods MD [address] [address] Physician Blood and Marrow Transplant 05/04/18 Fidel De La Garza MD [address] [place] [address] Consulting Hematology/Oncology 05/15/18 Halima Cohen (Rn), [place] [address] [place], [place] 0979106 Specialty Blanket Binder HOSPICE & PALLIATIVE MEDICINE 05/15/18 Ela Alvarez MD [address] [place], [place] [id number] Hematology/Oncology 04/26/22 Nancie Low RN [address] [place], [place] 369701 Specialty Blanket Binder Hematology/Oncology 04/26/22 Marta Lui RN [address] [place] [address] Regional Refrigerated Cdl Truck Driver 02/22/23 Tour Agent Relationship Specialty Start Date End Date Ovidio Vincent MD [address] [place] [address] PCP - General Family Medicine 03/16/21 Becky Leija MD, [address] [place] [address] Physician Radiation Oncology 11/24/17 Tato Castro [address] [place] [address] [phone] Pain Management Anesthesiology 01/30/18 Santos Woods MD [address] [place] 8[address] [place] [address] Physician Blood and Marrow Transplant 05/04/18 Fidel De La Garza MD [address] [place] [address] Consulting Hematology/Oncology 05/15/18 Halima [place] (Rn), [place] [address] [place] [address] Specialty Blanket Binder HOSPICE & PALLIATIVE MEDICINE 05/15/18 Ela Alvarez MD [address] [place], [place] [id number] Hematology/Oncology 04/26/22 Nancie Low RN [address] [place] [address] Specialty Blanket Binder Hematology/Oncology 04/26/22 Marta Lui, ALICIA [address] [place], [place] [phone] Regional Refrigerated Cdl Truck Driver 02/22/23 Tour Agent Relationship Specialty Start Date End Date Ovidio Vincent MD [address] [place], [place] 040981 PCP - General Family Medicine 03/16/21 Becky Leija MD, [address] [place], [place] 036371 Physician Radiation Oncology 11/24/17 Tato Castro [address] [place] [address] [phone] Pain Management Anesthesiology 01/30/18 Santos Woods MD [address] [address] Physician Blood and Marrow Transplant 05/04/18 Fidel De La Garza MD [address]201 [place] [address] Consulting Hematology/Oncology 05/15/18 Halima Choen (Rn), [place] [address] [place], [place] 7726306 Specialty Blanket Binder HOSPICE & PALLIATIVE MEDICINE 05/15/18 Ela Alvarez MD [address] [place] [address] Hematology/Oncology 04/26/22 Nancie Low, ALICIA [address] [place] [address] Specialty Blanket Binder Hematology/Oncology 04/26/22 Marta Lui RN [address] [place] [address] Regional Refrigerated Cdl Truck Driver 02/22/23 Tour Agent Relationship Specialty Start Date End Date Ovidio Vincent MD [address] [place] [address] PCP - General Family Medicine 03/16/21 Becky Leija MD, [address] [place], [place] 154611 Physician Radiation Oncology 11/24/17 Tato Castro [address] [place], [place] 261441 Pain Management Anesthesiology 01/30/18 Santos Woods MD [address] [address] Physician Blood and Marrow Transplant 05/04/18 Fidel De La Garza MD [address] [place] [address] Consulting Hematology/Oncology 05/15/18 Halima [place] ([place]n), [place] [address] [place] [address] Specialty Blanket Binder HOSPICE & PALLIATIVE MEDICINE 05/15/18 Ela Alvarez MD [address] [place], [place] 07891691 Hematology/Oncology 04/26/22 Nancie Low RN [address] [place], [place] 75726691 Specialty Blanket Binder Hematology/Oncology 04/26/22 Marta Lui, ALICIA [address] [place] [address] Regional Refrigerated Cdl Truck Driver 02/22/23 Team Status: Inactive Member Role Status Dates Dr. Ovidio Vincent MD Primary Care Provider Active Dr. Adam Bridges DO Attending Provider, Ruddy solares Active Tour Agent Relationship Specialty Start Date End Date Ovidio Vincent MD [address] [place], [place] [id number] PCP - General Family Medicine 03/16/21 Becky Leija MD, MD [address] [place], [place] 294115 [phone] Physician Radiation Oncology 11/24/17 [facility] [address] [place] [address] Pain Management Anesthesiology 01/30/18 Santos Woods MD 9818 [facility]5 [place], [place] 9517395 Physician Blood and Marrow Transplant 05/04/18 Fidel De La Garza MD [address] [place] [address] Consulting Hematology/Oncology 05/15/18 Halima Cohen (Rn), [place] [address] [place] [address] Specialty Blanket Binder HOSPICE & PALLIATIVE MEDICINE 05/15/18 Ela Alvarez MD [address] [place] [address] Hematology/Oncology 04/26/22 Nancie Low, ALICIA [address] [place] [address] Specialty Blanket Binder Hematology/Oncology 04/26/22 Marta Lui RN [address] [place] [address] Regional Refrigerated Cdl Truck Driver 02/22/23 Tour Agent Relationship Specialty Start Date End Date Ovidio Vincent MD [address] [place] [address] PCP - General Family Medicine 03/16/21 Becky Leija MD, [address] [place] [address] Physician Radiation Oncology 11/24/17 Tato Castro [address] [place], [place] 748191 Pain Management Anesthesiology 01/30/18 Santos Woods MD 9464 [facility] [address] [place] [address] Physician Blood and Marrow Transplant 05/04/18 Fidel De La Garza MD [address] [place] [address] Consulting Hematology/Oncology 05/15/18 Halima [place] ([place]n), [place] [address] [place], [place] 4899406 Specialty Blanket Binder HOSPICE & PALLIATIVE MEDICINE 05/15/18 Ela Alvarez MD [address] [place], [place] 14269691 Hematology/Oncology 04/26/22 Nancie Low, ALICIA [address] [place], [place] 676851 Specialty Blanket Binder Hematology/Oncology 04/26/22 Marta Lui, ALICIA [address] [place] [address] Regional Refrigerated Cdl Truck Driver 02/22/23 Tour Agent Relationship Specialty Start Date End Date vOidio Vincent MD [address] [place], [place] 381891 PCP - General Family Medicine 03/16/21 Becky Leija MD, MD [address] [place], [place] 64836691 Physician Radiation Oncology 11/24/17 Tato Castro [address] [place], [place] [phone] Pain Management Anesthesiology 01/30/18 Santos Woods MD [address] 1825595 Physician Blood and Marrow Transplant 05/04/18 Fidel De La Garza MD [address] [place], [place] 3093895 Consulting Hematology/Oncology 05/15/18 Halima [place] (Rn), [place] [address] [address] [place], [place] 4580106 Specialty Blanket Binder HOSPICE & PALLIATIVE MEDICINE 05/15/18 Ela Alvarez MD [address] [place], [place] 958221 Hematology/Oncology 04/26/22 Nancie Low RN [address] [place], [place] [phone] Specialty Blanket Binder Hematology/Oncology 04/26/22 Marta Lui, ALICIA [address] [place] [address] Regional Refrigerated Cdl Truck Driver 02/22/23 Tour Agent Relationship Specialty Start Date End Date Ovidio Vincent MD [address] [place], [place] [phone] PCP - General Family Medicine 03/16/21 Becky Leija MD, [address] [place] [address] Physician Radiation Oncology 11/24/17 Tato Castro [address] [place] [address] 073621 Pain Management Anesthesiology 01/30/18 Santos Woods MD [address] [address] Physician Blood and Marrow Transplant 05/04/18 Fidel De La Garza MD [address] [place], [place] 9650695 Consulting Hematology/Oncology 05/15/18 Halima Cohen (Rn), [place] [address] [address] [place], [place] 0408406 Specialty Blanket Binder HOSPICE & PALLIATIVE MEDICINE 05/15/18 Ela Alvarez MD [address] [place], [place] 82429691 Hematology/Oncology 04/26/22 Nancie Low, ALICIA [address] [place], [place] [phone] Specialty Blanket Binder Hematology/Oncology 04/26/22 Marta Lui, ALICIA [address] [place] [address] Regional Refrigerated Cdl Truck Driver 02/22/23 Tour Agent Relationship Specialty Start Date End Date Ovidio Vincent MD [address] [place], [place] [phone] PCP - General Family Medicine 03/16/21 Becky Leija MD, [address] [place], [place] [phone] Physician Radiation Oncology 11/24/17 Tato Castro [address] [place] [address] [phone] Pain Management Anesthesiology 01/30/18 Santos Woods MD 9500 [facility] [address] 1956395 Physician Blood and Marrow Transplant 05/04/18 Fidel De La Garza MD [address] [place], [place] 8248295 Consulting Hematology/Oncology 05/15/18 Halima Cohen (Rn), [place] [address] [place], [place] 6132306 Specialty Blanket Binder HOSPICE & PALLIATIVE MEDICINE 05/15/18 Ela Alvarez MD [address] [place], [place] 13090691 Hematology/Oncology 04/26/22 Nancie Low, ALICIA [address] [place], [place] [phone] Specialty Blanket Binder Hematology/Oncology 04/26/22 Marta Lui RN [address] [place] [address] Regional Refrigerated Cdl Truck Driver 02/22/23 Tour Agent Relationship Specialty Start Date End Date Ovidio Vincent MD [address] [place], [place] [id number] PCP - General Family Medicine 03/16/21 Becky Leija MD, MD [address] [place], [place] [id number] Physician Radiation Oncology 11/24/17 Tato Castro [address] [place] [address] [phone] Pain Management Anesthesiology 01/30/18 Santos Woods MD [address] [place] [address] Physician Blood and Marrow Transplant 05/04/18 Fidel De La Garza MD [address] [place], [place] 6341595 Consulting Hematology/Oncology 05/15/18 Halima Cohen (Rn), [place] [address] [place], [place] 5660306 Specialty Blanket Binder HOSPICE & PALLIATIVE MEDICINE 05/15/18 Ela Alvarez MD [address] [place] [address] Hematology/Oncology 04/26/22 Nancie Low, ALICIA [address] [place], [place] [phone] Specialty Blanket Binder Hematology/Oncology 04/26/22 Marta Lui RN [address] [place] [address] Regional Refrigerated Cdl Truck Driver 02/22/23 Tour Agent Relationship Specialty Start Date End Date Ovidio Vincent MD [address] [place], [place] [id number] PCP - General Family Medicine 03/16/21 Becky Leija MD, [address] [place], [place] [phone] Physician Radiation Oncology 11/24/17 Tato Castro [address] [place] [address] Pain Management Anesthesiology 01/30/18 Santos Woods MD 9500 [facility] [address] 1957995 Physician Blood and Marrow Transplant 05/04/18 Fidel De La Garza MD [address] [place] [address] Consulting Hematology/Oncology 05/15/18 Halima [place] (Rn), [place] [address] [address] [place], [place] 5180606 Specialty Blanket Binder HOSPICE & PALLIATIVE MEDICINE 05/15/18 Ela Alvarez MD [address] [place] [address] Hematology/Oncology 04/26/22 Nancie Low, ALICIA [address] [place], [place] [phone] Specialty Blanket Binder Hematology/Oncology 04/26/22 Marta Lui, ALICIA [address] [place] [address] Regional Refrigerated Cdl Truck Driver 02/22/23 Tour Agent Relationship Specialty Start Date End Date Ovidio Vincent MD [address] [place] [address] PCP - General Family Medicine 03/16/21 Becky Leija MD, [address] [place], [place] [phone] Physician Radiation Oncology 11/24/17 Tato Castro [address] [place] [address] Pain Management Anesthesiology 01/30/18 Santos Woods MD [address] [address] Physician Blood and Marrow Transplant 05/04/18 Fidel De La Garza MD [address] [place] [address] Consulting Hematology/Oncology 05/15/18 Halima Cohen (Rn), [place] [address] [address] [place], [place] 8932406 Specialty Blanket Binder HOSPICE & PALLIATIVE MEDICINE 05/15/18 Ela Alvarez MD [address] [place] [address] Hematology/Oncology 04/26/22 Nancie Low, ALICIA [address] [place], [place] 606351 Specialty Blanket Binder Hematology/Oncology 04/26/22 Marta Lui RN 6000 [place] [address] Regional Refrigerated Cdl Truck Driver 02/22/23 Tour Agent Relationship Specialty Start Date End Date Ovidio Vincent MD [address] [place] [address] PCP - General Family Medicine 03/16/21 Becky Leija MD, MD [address] [place], [place] 816951 Physician Radiation Oncology 11/24/17 Tato Castro [address] [place] [address] Pain Management Anesthesiology 01/30/18 Santos Woods MD [address] [place] [address] Physician Blood and Marrow Transplant 05/04/18 Fidel De La Garza MD [address] [place] [address] Consulting Hematology/Oncology 05/15/18 Halima Cohen (Rn), [place] [address] [place], [place] [phone] Specialty Blanket Binder HOSPICE & PALLIATIVE MEDICINE 05/15/18 Ela Alvarez MD [address] [place] [address] Hematology/Oncology 04/26/22 Nancie Low RN [address] [place] [address] Specialty Blanket Binder Hematology/Oncology 04/26/22 Marta Lui RN 6[address] [place] [address] Regional Refrigerated Cdl Truck Driver 02/22/23 Tour Agent Relationship Specialty Start Date End Date Ovidio Vincent MD [address] [place], [place] 836751 PCP - General Family Medicine 03/16/21 Becky Leija MD, MD [address] [place], [place] [phone] Physician Radiation Oncology 11/24/17 Tato Castro [address] [place] [address] Pain Management Anesthesiology 01/30/18 Santos Woods MD [address] [place] [address] Physician Blood and Marrow Transplant 05/04/18 Fidel De La Garza MD [address] [place], [place] [phone] Consulting Hematology/Oncology 05/15/18 Hal[place] ([place]), [place] [address] [place] [address] Specialty Blanket Binder HOSPICE & PALLIATIVE MEDICINE 05/15/18 Ela Alvarez MD [address] [place], [place] 991911 Hematology/Oncology 04/26/22 Nancie Low, ALICIA [address] [place], [place] 286381 Specialty Blanket Binder Hematology/Oncology 04/26/22 Marta Lui, ALICIA [address] [place] [address] Regional Refrigerated Cdl Truck Driver 02/22/23 Tour Agent Relationship Specialty Start Date End Date Ovidio Vincent MD [address] [place], [place] 824151 PCP - General Family Medicine 03/16/21 Becky Leija MD, MD [address] [place], [place] [id number] Physician Radiation Oncology 11/24/17 Tato Castro [address] [place] [address] [id number] Pain Management Anesthesiology 01/30/18 Santos Woods MD [address] [place] [address] Physician Blood and Marrow Transplant 05/04/18 Fidel De La Garza MD [address] [place], [place] [phone] Consulting Hematology/Oncology 05/15/18 Halima Cohen (Rn), [place] [address] [place], [place] [phone] Specialty Blanket Binder HOSPICE & PALLIATIVE MEDICINE 05/15/18 Ela Alvarez MD [address] [place], [place] 871861 Hematology/Oncology 04/26/22 05/02/23 Nancie Low, ALICIA [address] [place], [place] 819771 Specialty Blanket Binder Hematology/Oncology 04/26/22 Marta Lui, ALICIA [address] [place], [place] [id number] Regional Refrigerated Cdl Truck Driver 02/22/23 Murray Mooney MD [address] [place] [place], [place] 316451 Hematology/Oncology 05/03/23 Tour Agent Relationship Specialty Start Date End Date Ovidio Vincent MD [address] [place] [address] PCP - General Family Medicine 03/16/21 Becky Leija MD, [address] [place] [address] Physician Radiation Oncology 11/24/17 Tato Castro [address] [place] [address] [phone] Pain Management Anesthesiology 01/30/18 Santos Woods MD [address] [place] [address] Physician Blood and Marrow Transplant 05/04/18 Fidel De La Garza MD [address] [place] [address] Consulting Hematology/Oncology 05/15/18 Halima Cohen (Rn), [place] [address] [place], [place] [phone] Specialty Blanket Binder HOSPICE & PALLIATIVE MEDICINE 05/15/18 Nancie Low, ALICIA [address] [place] [place], [place] 536261 Specialty Blanket Binder Hematology/Oncology 04/26/22 Marta Lui RN [address] [place], [place] [id number] Regional Refrigerated Cdl Truck Driver 02/22/23 Murray Moonye MD [address] [place], [place] 360106 [phone] Hematology/Oncology 05/03/23 Tour Agent Relationship Specialty Start Date End Date Ovidio Vincent MD [address] [place] [address] PCP - General Family Medicine 03/16/21 Becky Leija MD, [address] [place], [place] 468057 [phone] Physician Radiation Oncology 11/24/17 Tato Castro [address] [place] [address] [phone] Pain Management Anesthesiology 01/30/18 Santos Woods MD [address] [place] [address] Physician Blood and Marrow Transplant 05/04/18 Fidel De La Garza MD [address] [place] [address] Consulting Hematology/Oncology 05/15/18 Halima Cohen (Rn), [place] [address] [place] [address] Specialty Blanket Binder HOSPICE & PALLIATIVE MEDICINE 05/15/18 Nancie Low, ALICIA [address] [place], [place] [phone] Specialty Blanket Binder Hematology/Oncology 04/26/22 Marta Lui, AILCIA [address] [place] [address] Regional Refrigerated Cdl Truck Driver 02/22/23 Murray Mooney MD [address] [place], [place] 701751 Hematology/Oncology 05/03/23 Tour Agent Relationship Specialty Start Date End Date Ovidio Vincent MD [address] [place], [place] [id number] PCP - General Family Medicine 03/16/21 Becky Leija MD, MD [address] [place], [place] [phone] Physician Radiation Oncology 11/24/17 Tato Castro [address] [place] [address] [id number] Pain Management Anesthesiology 01/30/18 Santos Woods MD [address] [address] Physician Blood and Marrow Transplant 05/04/18 Fidel De La Garza MD [address] [place], [place] [phone] Consulting Hematology/Oncology 05/15/18 Halima Cohen ([place]n), [place] [address] [place] [address] Specialty Blanket Binder HOSPICE & PALLIATIVE MEDICINE 05/15/18 Nancie Low, ALICIA [address] [place], [place] 751311 Specialty Blanket Binder Hematology/Oncology 04/26/22 Marta Lui, ALICIA [address] [place], [place] [phone] Regional Refrigerated Cdl Truck Driver 02/22/23 Murray Mooney MD [address] [place], [place] 705736 [phone] Hematology/Oncology 05/03/23 Tour Agent Relationship Specialty Start Date End Date Ovidio Vincent MD [address] [place], [place] [id number] PCP - General Family Medicine 03/16/21 Becky Leija MD, [address] [place], [place] 818541 Physician Radiation Oncology 11/24/17 Tato Castro [address] [place] [address] [phone] Pain Management Anesthesiology 01/30/18 Santos Woods MD [address] [address] Physician Blood and Marrow Transplant 05/04/18 Fidel De La Garza MD [address] [place], [place] 8681895 Consulting Hematology/Oncology 05/15/18 Halima [place] (Rn), [place] [address] [place] [place] 4980706 Specialty Blanket Binder HOSPICE & PALLIATIVE MEDICINE 05/15/18 Nancie Low, ALICIA [address] [place], [place] [phone] Specialty Blanket Binder Hematology/Oncology 04/26/22 Marta Lui, ALICIA [address] [place] [address] Regional Refrigerated Cdl Truck Driver 02/22/23 Murray Mooney MD [address] [place], [place] [phone] Hematology/Oncology 05/03/23 Team Status: Inactive Member Role Status Dates Dr. Ovidio Vincent MD Primary Care Provider, Referri ng Provider Active Dr. Patsy Gamble MD Attending Provider Active Team Status: Inactive Member Role Status Dates Dr. Ovidio Vincent MD Primary Care Provider, Attendi ng Provider Active Dr. Shabbir Davila MD Referring Provider Active Team Status: Active Member Role Status Dates Dr. Ovidio Vincent MD Primary Care Pro vider, Attending Provider, Referring Provider Active Team Status: Inactive Member Role Status Dates Dr. Ovidio Vincent MD Primary Care Provider Active Dr. Patsy Gamble MD Attending Provider, Referring Pr ovider Active Tour Agent Relationship Specialty Start Date End Date Ovidio Vincent MD [address] [place], [place] [id number] PCP - General Family Medicine 03/16/21 Becky Leija MD, [address] [place], [place] [phone] Physician Radiation Oncology 11/24/17 Tato Castro [address] [place] [address] [phone] Pain Management Anesthesiology 01/30/18 Santos Woods MD [address] [place], [place] 8161595 Physician Blood and Marrow Transplant 05/04/18 Fidel De La Garza MD [address] [place] [place], [place] 0384395 Consulting Hematology/Oncology 05/15/18 Halima [place] ([place]n), [place] [address] [place], [place] 1864906 Specialty Blanket Binder HOSPICE & PALLIATIVE MEDICINE 05/15/18 Nancie Low, ALICIA [address] [place], [place] [id number] [phone] Specialty Blanket Binder Hematology/Oncology 04/26/22 Marta Lui, ALICIA [address] [place], [place] [phone] Regional Refrigerated Cdl Truck Driver 02/22/23 Murray Mooney MD [address] [place] [address] Hematology/Oncology 05/03/23 Tour Agent Relationship Specialty Start Date End Date Ovidio Vincent MD [address] [place] [address] PCP - General Family Medicine 03/16/21 Becky Leija MD, [address] [place] [address] Physician Radiation Oncology 11/24/17 Tato Castro [address] [place] [address] [phone] Pain Management Anesthesiology 01/30/18 Santos Woods MD [address] [place], [place] 3428295 Physician Blood and Marrow Transplant 05/04/18 Fidel De La Garza MD [address] [facility] [place] [place], [place] 4498195 Consulting Hematology/Oncology 05/15/18 Halima [place] ([place]n), [place] [address] [place] [address] Specialty Blanket Binder HOSPICE & PALLIATIVE MEDICINE 05/15/18 Nancie Low, ALICIA [address] [place], [place] 623691 Specialty Blanket Binder Hematology/Oncology 04/26/22 Marta Lui, ALICIA [address] [place], [place] [phone] Regional Refrigerated Cdl Truck Driver 02/22/23 Murray Mooney MD [address] [place], [place] [phone] Hematology/Oncology 05/03/23 Team Status: Active Member Role Status Dates Dr. Ovidio Vincent MD Primary Care Provider Active Maria Isabel Holden ENDLESS TRACK VEHICLE MECHANIC, ENDLESS TRACK VEHICLE MECHANIC-C Attending Provider Active Team Status: Active Member Role Status Dates Dr. Ovidio Vincent MD Primary Care Provider Active Dr. Patsy Gamble MD Attending Provider Active Tour Agent Relationship Specialty Start Date End Date Ovidio Vincent MD [address] [place], [place] [id number] PCP - General Family Medicine 03/16/21 Becky Leija MD, [address] [place], [place] [phone] Physician Radiation Oncology 11/24/17 Tato Castro [address] [place] [address] 812581 Pain Management Anesthesiology 01/30/18 Santos Woods MD [address] [phone] Physician Blood and Marrow Transplant 05/04/18 Fidel De La Garza MD [address] [place], [place] 3939895 Consulting Hematology/Oncology 05/15/18 Halima [place] ([place]n), [place] [address] [place] 5186506 Specialty Blanket Binder HOSPICE & PALLIATIVE MEDICINE 05/15/18 Nancie Low, ALICIA [address] [place], [place] [phone] Specialty Blanket Binder Hematology/Oncology 04/26/22 Marta Lui, ALICIA [address] [place] [address] Regional Refrigerated Cdl Truck Driver 02/22/23 Murray Mooney MD [address] [place], [place] [phone] Hematology/Oncology 05/03/23 Tour Agent Relationship Specialty Start Date End Date Ovidio Vincent MD [address] [place], [place] 279111 PCP - General Family Medicine 03/16/21 Becky Leija MD, [address] [place], [place] [phone] Physician Radiation Oncology 11/24/17 Tato Castro MD [address] [place] [address] 201641 Pain Management Anesthesiology 01/30/18 Santos Woods MD [address] [phone] Physician Blood and Marrow Transplant 05/04/18 Fidel De La Garza MD [address] [place], [place] 4050595 Consulting Hematology/Oncology 05/15/18 Halima [place] ([place]n), [place] [address] [address] [place], [place] 0780806 Specialty Blanket Binder HOSPICE & PALLIATIVE MEDICINE 05/15/18 Nancie Low, ALICIA [address] [place], [place] [phone] Specialty Blanket Binder Hematology/Oncology 04/26/22 Marta Lui, ALICIA [address] [place] [address] Regional Refrigerated Cdl Truck Driver 02/22/23 Murray Mooney MD [address] [place] [address] Hematology/Oncology 05/03/23 Tour Agent Relationship Specialty Start Date End Date Ovidio Vincent MD [address] [place] [address] PCP - General Family Medicine 03/16/21 Becky Leija MD, [address] [place] [address] Physician Radiation Oncology 11/24/17 Tato Castro MD [address] [place] [address] [phone] Pain Management Anesthesiology 01/30/18 Santos Woods MD [address] [facility] [address] [place], [place] 9247895 Physician Blood and Marrow Transplant 05/04/18 Fidel De La Garza MD [address] [place], [place] 7400195 Consulting Hematology/Oncology 05/15/18 Halima Cohen (Rn), RN [address] [place], [place] 9758406 Specialty Blanket Binder HOSPICE & PALLIATIVE MEDICINE 05/15/18 Nancie Low, ALICIA [address] [place], [place] 697351 [phone] Specialty Blanket Binder Hematology/Oncology 04/26/22 Marta Lui, ALICIA [address] [place], [place] 2023131 Regional Refrigerated Cdl Truck Driver 02/22/23 Murray Mooney MD [address] [place] [address] Hematology/Oncology 05/03/23 Tour Agent Relationship Specialty Start Date End Date Ovidio Vincent MD [address] [place] [address] PCP - General Family Medicine 03/16/21 Becky Leija MD, [address] [place] [address] Physician Radiation Oncology 11/24/17 Tato Castro MD [address] [place] [address] [phone] Pain Management Anesthesiology 01/30/18 Santos Woods MD [address] [place], [place] 1483795 Physician Blood and Marrow Transplant 05/04/18 Fidel De La Garza MD [address] [place], [place] 5766895 Consulting Hematology/Oncology 05/15/18 Halima [place] (Rn), [place] [address] [place] [address] Specialty Blanket Binder HOSPICE & PALLIATIVE MEDICINE 05/15/18 Nancie Low, ALICIA [address] [place], [place] 978031 Specialty Blanket Binder Hematology/Oncology 04/26/22 Marta Lui, ALICIA [address] [place] [address] Regional Refrigerated Cdl Truck Driver 02/22/23 Murray Mooney MD [address] [place], [place] 923903 [phone] Hematology/Oncology 05/03/23 Tour Agent Relationship Specialty Start Date End Date Ovidio Vincent MD [address] [place], [place] 271471 PCP - General Family Medicine 03/16/21 Becky Leija MD, [address] [place] 581243 [phone] Physician Radiation Oncology 11/24/17 Tato Castro MD [address] [place] [address] 555501 Pain Management Anesthesiology 01/30/18 Santos Woods MD [address] [facility] [address] 3724295 Physician Blood and Marrow Transplant 05/04/18 Fidel De La Garza MD [address] [place], [place] 4186195 Consulting Hematology/Oncology 05/15/18 Hal[place] ([place]n), [place] [address] [address] [place], [place] 5776806 Specialty Blanket Binder HOSPICE & PALLIATIVE MEDICINE 05/15/18 Nancie Low, ALICIA [address] [place], [place] [phone] Specialty Blanket Binder Hematology/Oncology 04/26/22 Marta Lui, ALICIA [address] [place] [address] Regional Refrigerated Cdl Truck Driver 02/22/23 Murray Mooney MD [address] [place], [place] [phone] Hematology/Oncology 05/03/23 Tour Agent Relationship Specialty Start Date End Date Ovidio Vincent MD [address] [place], [place] [id number] PCP - General Family Medicine 03/16/21 Becky Leija MD, MD [address] [place], [place] 12350691 Physician Radiation Oncology 11/24/17 Tato Castro MD [address] [place] [address] 506711 Pain Management Anesthesiology 01/30/18 Santos Woods MD [address] [facility] [address] [address] Physician Blood and Marrow Transplant 05/04/18 Fidel De La Garza MD [address] [place] [address] Consulting Hematology/Oncology 05/15/18 Halima [place] ([place]), [place] [address] [place] [address] Specialty Blanket Binder HOSPICE & PALLIATIVE MEDICINE 05/15/18 Nancie Low, ALICIA [address] [place], [place] [phone] Specialty Blanket Binder Hematology/Oncology 04/26/22 Marta Lui, ALICIA [address] [place], [place] [phone] Regional Refrigerated Cdl Truck Driver 02/22/23 Murray Mooney MD [address] [place], [place] 577031 Hematology/Oncology 05/03/23 Tour Agent Relationship Specialty Start Date End Date Ovidio Vincent MD [address] [place], [place] 042071 PCP - General Family Medicine 03/16/21 Becky Leija MD, MD [address] [place], [place] 48861691 Physician Radiation Oncology 11/24/17 [facility] [address] [place] [address] [phone] Pain Management Anesthesiology 01/30/18 Santos Woods MD [address] [place] [address] Physician Blood and Marrow Transplant 05/04/18 Fidel De La Garza MD [address] [place] [address] Consulting Hematology/Oncology 05/15/18 Halima [place] (Rn), [place] [address] [place] [address] Specialty Blanket Binder HOSPICE & PALLIATIVE MEDICINE 05/15/18 Ela Alvarez MD [address] [place] [address] Hematology/Oncology 04/26/22 05/02/23 Nancie Low, ALICIA [address] [place] [address] Specialty Blanket Binder Hematology/Oncology 04/26/22 Mara Guardado RN Regional Refrigerated Cdl Truck Driver 10/21/22 02/21/23 Tour Agent Relationship Specialty Start Date End Date Ovidio Vincent MD [address] [place] [address] PCP - General Family Medicine 03/16/21 Becky Leija MD, MD [address] [place] [address] Physician Radiation Oncology 11/24/17 Tato Castro MD [address] [place] [address] 88844 Pain Management Anesthesiology 01/30/18 Santos Woods MD [address] [place], [place] 2094295 Physician Blood and Marrow Transplant 05/04/18 Fidel De La Garza MD [address] [place] [address] Consulting Hematology/Oncology 05/15/18 Halima [place] ([place]n), [place] [address] [place] [address] Specialty Blanket Binder HOSPICE & PALLIATIVE MEDICINE 05/15/18 Nancie Low, ALICIA [address] [place], [place] [phone] Specialty Blanket Binder Hematology/Oncology 04/26/22 Marta Lui, ALICIA [address] [place] [address] Regional Refrigerated Cdl Truck Driver 02/22/23 Murray Mooney MD [address] [place], [place] 453601 Hematology/Oncology 05/03/23 Tour Agent Relationship Specialty Start Date End Date Ovidio Vincent MD [address] [place], [place] [id number] PCP - General Family Medicine 03/16/21 Becky Leija MD, MD [address] [place], [place] 498941 Physician Radiation Oncology 11/24/17 [facility] [address] [place] [address] [phone] Pain Management Anesthesiology 01/30/18 Santos Woods MD [address] [address] Physician Blood and Marrow Transplant 05/04/18 Fidel De La Garza MD [address] [place], [place] 9068595 Consulting Hematology/Oncology 05/15/18 Halima [place] ([place]n), [place] [address] [place] [address] Specialty Blanket Binder HOSPICE & PALLIATIVE MEDICINE 05/15/18 Nancie Low, ALICIA [address] [place], [place] [phone] Specialty Blanket Binder Hematology/Oncology 04/26/22 Marta Lui, ALICIA [address] [place], [place] 3940231 Regional Refrigerated Cdl Truck Driver 02/22/23 Murray Mooney MD [address] [place], [place] 006961 Hematology/Oncology 05/03/23 Tour Agent Relationship Specialty Start Date End Date Ovidio Vincent MD [address] [place], [place] [id number] PCP - General Family Medicine 03/16/21 Becky Leija MD, [address] [place], [place] 732321 Physician Radiation Oncology 11/24/17 [facility] [address] [place] [address] 560361 Pain Management Anesthesiology 01/30/18 Santos Woods MD [address] [address] Physician Blood and Marrow Transplant 05/04/18 Fidel De La Garza MD [address] [place] [address] Consulting Hematology/Oncology 05/15/18 Halima [place] (Rn), [place] [address] [address] [place], [place] 4021706 Specialty Blanket Binder HOSPICE & PALLIATIVE MEDICINE 05/15/18 Nancie Low RN [address] [place], [place] [phone] Specialty Blanket Binder Hematology/Oncology 04/26/22 Marta Lui, ALICIA [address] [place] [address] Regional Refrigerated Cdl Truck Driver 02/22/23 Murray Mooney MD [address] [place], [place] [phone] Hematology/Oncology 05/03/23 Tour Agent Relationship Specialty Start Date End Date Ovidio Vincent MD [address] [place], [place] [id number] PCP - General Family Medicine 03/16/21 Becky Leija MD, [address] [place], [place] [phone] Physician Radiation Oncology 11/24/17 [facility] [address] [place] [address] [phone] Pain Management Anesthesiology 01/30/18 Santos Woods MD [address] [address] Physician Blood and Marrow Transplant 05/04/18 Fidel De La Garza MD [address] [place] [address] Consulting Hematology/Oncology 05/15/18 Halima [place] ([place]), [place] [address] [place] [address] Specialty Blanket Binder HOSPICE & PALLIATIVE MEDICINE 05/15/18 Nancie Low RN [address] [place], [place] 885001 Specialty Blanket Binder Hematology/Oncology 04/26/22 Marta Lui, ALICIA [address] [place] [address] Regional Refrigerated Cdl Truck Driver 02/22/23 Murray Mooney MD [address] [place] [address] Hematology/Oncology 05/03/23 Tour Agent Relationship Specialty Start Date End Date Ovidio Vincent MD [address] [place], [place] [id number] PCP - General Family Medicine 03/16/21 Becky Leija MD, [address] [place], [place] [phone] Physician Radiation Oncology 11/24/17 Tato Castro MD [address] [place] [address] [phone] Pain Management Anesthesiology 01/30/18 Santos Woods MD [address] [address] Physician Blood and Marrow Transplant 05/04/18 Fidel De La Garza MD [address] [place] [address] Consulting Hematology/Oncology 05/15/18 Halima [place] ([place]n), [place] [address] [address] [place], [place] 1407306 Specialty Blanket Binder HOSPICE & PALLIATIVE MEDICINE 05/15/18 Ela Alvarez MD [address] [place], [place] 464431 Hematology/Oncology 04/26/22 05/02/23 Nancie Low, ALICIA [address] [place], [place] [phone] Specialty Blanket Binder Hematology/Oncology 04/26/22 Mara Guardado, mule operatorRegional Refrigerated Cdl Truck Driver 10/21/22 02/21/23 Marta Lui, ALICIA [address] [place] [address] Regional Refrigerated Cdl Truck Driver 02/22/23 Murray Mooney MD [address] [place], [place] [phone] Hematology/Oncology 05/03/23 Tour Agent Relationship Specialty Start Date End Date Ovidio Vincent MD [address] [place], [place] [id number] PCP - General Family Medicine 03/16/21 Becky Leija MD, MD [address] [place], [place] [phone] Physician Radiation Oncology 11/24/17 Tato Castro MD [address] [place] [address] [phone] Pain Management Anesthesiology 01/30/18 Santos Woods MD [address] [place] [address] Physician Blood and Marrow Transplant 05/04/18 Fidel De La Garza MD [address] [place] [address] Consulting Hematology/Oncology 05/15/18 Halima Cohen ([place]), [place] [address] [place] [address] Specialty Blanket Binder HOSPICE & PALLIATIVE MEDICINE 05/15/18 Nancie Low, ALICIA [address] [place], [place] 830181 Specialty Blanket Binder Hematology/Oncology 04/26/22 Marta Lui RN [address] [place] [address] Regional Refrigerated Cdl Truck Driver 02/22/23 Murray Mooney MD [address] [place], [place] 889961 Hematology/Oncology 05/03/23 Tour Agent Relationship Specialty Start Date End Date Ovidio Vincent MD [address] [place], [place] [id number] PCP - General Family Medicine 03/16/21 Becky Leija MD, MD [address] [place], [place] [phone] Physician Radiation Oncology 11/24/17 [facility] [address] [place] [address] 770731 Pain Management Anesthesiology 01/30/18 Santos Woods MD [address] [address] Physician Blood and Marrow Transplant 05/04/18 Fidel De La Garza MD [address] [place], [place] 1566595 Consulting Hematology/Oncology 05/15/18 Halima [place] ([place] [address] [place] [address] Specialty Blanket Binder Hospice & Palliative Medicine 05/15/18 Nancie Low, ALICIA [address] [place], [place] 759301 Specialty Blanket Binder Hematology/Oncology 04/26/22 Marta Lui, ALICIA [address] [place] [address] Regional Refrigerated Cdl Truck Driver 02/22/23 Murray Mooney MD [address] [place], [place] 818241 Hematology/Oncology 05/03/23 Leno Márquez MD [address] [phone] Orthopedics 08/22/23 Team Status: Inactive Member Role Status Dates Dr. Ovidio Vincent MD Primary Care Provider Active KENDY BURROUGHS ENDLESS TRACK VEHICLE MECHANIC-C Attending Provider, Grisel solares Active Tour Agent Relationship Specialty Start Date End Date Ovidio Vincent MD [address] [place], [place] [phone] PCP - General Family Medicine 03/16/21 Becky Leija MD [address] [place], [place] [phone] Physician Radiation Oncology 11/24/17 Tato Castro MD [address] [place], [place] 430971 Pain Management Anesthesiology 01/30/18 Santos Woods MD [address] [place], [place] 1969395 Physician Blood and Marrow Transplant 05/04/18 Fidel De La Garza MD [address] [place], [place] 5354295 Consulting Hematology/Oncology 05/15/18 Halima [place] ([place]), [place] [address] [place] [address] Specialty Blanket Binder Hospice & Palliative Medicine 05/15/18 Nancie Low, ALICIA [address] [place], [place] 448096 [phone] Specialty Blanket Binder Hematology/Oncology 04/26/22 Marta Lui, ALICIA [address] [place] [address] Regional Refrigerated Cdl Truck Driver 02/22/23 Murray Mooney MD [address] [place], [place] [phone] Hematology/Oncology 05/03/23 Leno Márquez MD [address] [phone] Orthopedics 08/22/23 Tour Agent Relationship Specialty Start Date End Date Ovidio Vincent MD [address] [place] [address] PCP - General Family Medicine 03/16/21 Becky Leija MD [address] [place] [address] Physician Radiation Oncology 11/24/17 Tato Castro MD [address] [place] [address] Pain Management Anesthesiology 01/30/18 Santos Woods MD [address] [phone] Physician Blood and Marrow Transplant 05/04/18 Fidel De La Garza MD [address] [place], [place] 6793095 Consulting Hematology/Oncology 05/15/18 Hal[place] ([place]), [place] [address] [place] [address] Specialty Blanket Binder Hospice & Palliative Medicine 05/15/18 Nancie Low, ALICIA [address] [place], [place] [phone] Specialty Blanket Binder Hematology/Oncology 04/26/22 Marta Lui, ALICIA [address] [place], [place] [phone] Regional Refrigerated Cdl Truck Driver 02/22/23 Murray Mooney MD [address] [place], [place] 182071 Hematology/Oncology 05/03/23 Leno Márquez MD [address] [phone] Orthopedics 08/22/23 Tour Agent Relationship Specialty Start Date End Date Ovidio Vincent MD [address] [place] [address] PCP - General Family Medicine 03/16/21 Becky Leija MD [address] [place] [address] Physician Radiation Oncology 11/24/17 Tato Castro MD [address] [place] [address] Pain Management Anesthesiology 01/30/18 Santos Woods MD [address]00 [facility] [address] [place], [place] 4170495 Physician Blood and Marrow Transplant 05/04/18 Fidel De La Garza MD [address] [place], [place] 8393295 Consulting Hematology/Oncology 05/15/18 Halima Cohen (Rn), [place] [address] [place], [place] 2683406 Specialty Blanket Binder Hospice & Palliative Medicine 05/15/18 Nancie Low, ALICIA [address] [place], [place] 41959691 Specialty Blanket Binder Hematology/Oncology 04/26/22 Marta Lui, ALICIA [address] [place] [address] Regional Refrigerated Cdl Truck Driver 02/22/23 Murray Mooney MD [address] [facility] [place], [place] 78386413 [phone] Hematology/Oncology 05/03/23 Leno Márquez MD [address] [phone] Orthopedics 08/22/23 Loretta Leon, PA-C [address] [place], [place] 406054 [phone] Pulmonary and Critical Care Medicine 11/24/23 Tour Agent Relationship Specialty Start Date End Date Ovidio Vincent MD [address] [place], [place] [id number] [phone] PCP - General Family Medicine 03/16/21 Becky Leija MD [address] [place], [place] 383381 Physician Radiation Oncology 11/24/17 Tato Castro MD [address] [place] [address] Pain Management Anesthesiology 01/30/18 Santos Woods MD [facility]00 [facility] [address] [phone] Physician Blood and Marrow Transplant 05/04/18 Fidel De La Garza MD [address] [place], [place] [phone] Consulting Hematology/Oncology 05/15/18 Halima [place] ([place]n), [place] [address] [place], [place] [phone] Specialty Blanket Binder Hospice & Palliative Medicine 05/15/18 Nancie Low, ALICIA [address] [place], [place] [phone] Specialty Blanket Binder Hematology/Oncology 04/26/22 Marta Lui, ALICIA [address] [place], [place] [id number] Regional Refrigerated Cdl Truck Driver 02/22/23 Murray Mooney MD [address] [place] [address] Hematology/Oncology 05/03/23 Leno Márquez MD [address] [address] Orthopedics 08/22/23 Loretta Leon, PA-C [address] [place], [place] [phone] Pulmonary and Critical Care Medicine 11/24/23 Tour Agent Relationship Specialty Start Date End Date Ovidio Vincent MD [address] [place], [place] [id number] PCP - General Family Medicine 03/16/21 Becky Leija MD [address] [place], [place] [phone] Physician Radiation Oncology 11/24/17 KrissyTato MD [address] [place] [address] [phone] Pain Management Anesthesiology 01/30/18 Santos Woods MD 9501 [facility] [address] [phone] Physician Blood and Marrow Transplant 05/04/18 Fidel De La Garza MD 3393 [facility] [address] Consulting Hematology/Oncology 05/15/18 Halima [place] ([place]n), [place] [address] [place] [address] Specialty Blanket Binder Hospice & Palliative Medicine 05/15/18 Nancie Low, ALICIA [address] [place], [place] [phone] Specialty Blanket Binder Hematology/Oncology 04/26/22 Marta Lui, ALICIA [address] [place] [address] Regional Refrigerated Cdl Truck Driver 02/22/23 Murray Mooney MD [address] [place], [place] [phone] Hematology/Oncology 05/03/23 Leno Márquez MD [address] [phone] Orthopedics 08/22/23 Loretta Leon, PA-C [address] [facility] [place], [place] [phone] Pulmonary and Critical Care Medicine 11/24/23 Tour Agent Relationship Specialty Start Date End Date Ovidio Vincent MD [address] [place], [place] [id number] PCP - General Family Medicine 03/16/21 Becky Leija MD [address] [place], [place] [phone] Physician Radiation Oncology 11/24/17 [facility] [address] [place], [place] [phone] Pain Management Anesthesiology 01/30/18 Santos Woods MD [address] [place], [place] 7374795 Physician Blood and Marrow Transplant 05/04/18 Fidel De La Garza MD [address] [place] [address] Consulting Hematology/Oncology 05/15/18 Hal[place] ([place]), [place] [address] [address] [place], [place] [phone] Specialty Blanket Binder Hospice & Palliative Medicine 05/15/18 Nancie Low, ALICIA [address] [facility] [place], [place] [phone] Specialty Blanket Binder Hematology/Oncology 04/26/22 Mrata Lui, ALICIA [address] [place], [place] [phone] Regional Refrigerated Cdl Truck Driver 02/22/23 Murray Mooney MD [address] [place] [address] Hematology/Oncology 05/03/23 Leno Márquez MD [address] [phone] Orthopedics 08/22/23 Loretta Leon, PA-C [address] [place] [address] Pulmonary and Critical Care Medicine 11/24/23 Tour Agent Relationship Specialty Start Date End Date Ovidio Vincent MD [address] [place], [place] 226891 PCP - General Family Medicine 03/16/21 Becky Leija MD [address] [place] [address] Physician Radiation Oncology 11/24/17 Tato Castro MD [address] [place] [address] 295861 Pain Management Anesthesiology 01/30/18 Santos Woods MD [address] [address] Physician Blood and Marrow Transplant 05/04/18 Fidel De La Garza MD [address] [place] [address] Consulting Hematology/Oncology 05/15/18 Hal[place] ([place]), [place] [address] [place] [address] Specialty Blanket Binder Hospice & Palliative Medicine 05/15/18 Nancie Low, ALICIA [address] [place], [place] 382441 Specialty Blanket Binder Hematology/Oncology 04/26/22 Marta Lui, ALICIA 6[address] [place] [address] Regional Refrigerated Cdl Truck Driver 02/22/23 Murray Mooney MD [address] [place] 125597 [phone] Hematology/Oncology 05/03/23 Leno Márquez MD [address] [phone] Orthopedics 08/22/23 Loretta Leon, PA-C [address] [place] [address] Pulmonary and Critical Care Medicine 11/24/23 Tour Agent Relationship Specialty Start Date End Date Ovidio Vincent MD [address] [place], [place] 846341 PCP - General Family Medicine 03/16/21 Becky Leija MD [address] [place], [place] 953111 Physician Radiation Oncology 11/24/17 Tato Castro MD [address] [place] [address] 937821 Pain Management Anesthesiology 01/30/18 Santos Woods MD 9500 [facility] [place], [place] 9598495 Physician Blood and Marrow Transplant 05/04/18 Fidel De La Garza MD [address] [place], [place] 4553695 Consulting Hematology/Oncology 05/15/18 Halima [place] ([place]), [place] [address] [place], [place] 0896206 Specialty Blanket Binder Hospice & Palliative Medicine 05/15/18 Nancie Low, RN [address] [facility] [place], [place] [phone] Specialty Blanket Binder Hematology/Oncology 04/26/22 Marta Lui, ALICIA [address] [place] [address] Regional Refrigerated Cdl Truck Driver 02/22/23 Murray Mooney MD [address] [place], [place] 16269691 Hematology/Oncology 05/03/23 Leno Márquez MD [address] [phone] Orthopedics 08/22/23 Loretta Leon, PA-C [address] [place], [place] 487751 Pulmonary and Critical Care Medicine 11/24/23 Tour Agent Relationship Specialty Start Date End Date Oivdio Vincent MD [address] [place], [place] [phone] PCP - General Family Medicine 03/16/21 Becky Leija MD [address] [place], [place] 71251691 Physician Radiation Oncology 11/24/17 Tato Castro MD [address] [place], [place] 071471 Pain Management Anesthesiology 01/30/18 Santos Woods MD [address] [place], [place] 3674395 Physician Blood and Marrow Transplant 05/04/18 Fidel De La Garza MD 16[address] [facility] [place], [place] 1597595 Consulting Hematology/Oncology 05/15/18 Halima [place] ([place]n), [place] [address] [place] [address] Specialty Blanket Binder Hospice & Palliative Medicine 05/15/18 Nancie Low, ALICIA [address] [place], [place] [phone] Specialty Blanket Binder Hematology/Oncology 04/26/22 Marta Lui, ALICIA [address] [place] [address] Regional Refrigerated Cdl Truck Driver 02/22/23 Murray Mooney MD [address] [place], [place] 20068691 Hematology/Oncology 05/03/23 Leno Márquez MD [address] [address] Orthopedics 08/22/23 Loretta Leon, PA-C [address] [place] 131021 Pulmonary and Critical Care Medicine 11/24/23 Tour Agent Relationship Specialty Start Date End Date Ovidio Vincent MD [address] [place], [place] [phone] PCP - General Family Medicine 03/16/21 Becky Leija MD [address] [place], [place] [phone] Physician Radiation Oncology 11/24/17 Tato Castro MD [address] [place] [address] [phone] Pain Management Anesthesiology 01/30/18 Santos Woods MD 9500 [facility] [address] 4046895 Physician Blood and Marrow Transplant 05/04/18 Fidel De La Garza MD 9504 [facility] [address] Consulting Hematology/Oncology 05/15/18 Halima [place] ([place]), [place] [address] [place], [place] 3789906 Specialty Blanket Binder Hospice & Palliative Medicine 05/15/18 Nancie Low, ALICIA [address] [place], [place] [phone] Specialty Blanket Binder Hematology/Oncology 04/26/22 Marta Lui, RN [address] [place] [address] Regional Refrigerated Cdl Truck Driver 02/22/23 Murray Mooney MD [address] [place], [place] 12494691 Hematology/Oncology 05/03/23 Leno Márquez MD [address] [address] Orthopedics 08/22/23 Loretta Leon, PA-C [address] [place] [address] Pulmonary and Critical Care Medicine 11/24/23 Tour Agent Relationship Specialty Start Date End Date Ovidio Vincent MD [address] [place], [place] [phone] PCP - General Family Medicine 03/16/21 Becky Leija MD [address] [place], [place] 50634691 Physician Radiation Oncology 11/24/17 [facility] [address] [place], [place] [phone] Pain Management Anesthesiology 01/30/18 Santos Woods MD [address] [address] Physician Blood and Marrow Transplant 05/04/18 Fidel De La Garza MD [address] [place] [address] Consulting Hematology/Oncology 05/15/18 Halima [place] ([place]), [place] [address] [place] [address] Specialty Blanket Binder Hospice & Palliative Medicine 05/15/18 Nancie Low, ALICIA [address] [place] [address] Specialty Blanket Binder Hematology/Oncology 04/26/22 Marta Lui, ALICIA [address] [place] [address] Regional Refrigerated Cdl Truck Driver 02/22/23 Murray Mooney MD [address] [place] [address] Hematology/Oncology 05/03/23 Leno Márquez MD [address] [phone] Orthopedics 08/22/23 Loretta Leon PAAndriyC [address] [place] [address] Pulmonary and Critical Care Medicine 11/24/23 Tour Agent Relationship Specialty Start Date End Date Ovidio Vincent MD [address] [place] [address] PCP - General Family Medicine 03/16/21 Becky Leija MD [address] [place] [address] Physician Radiation Oncology 11/24/17 Tato Castro MD [address] [place] [address] Pain Management Anesthesiology 01/30/18 Santos Woods MD [address] [place] [address] Physician Blood and Marrow Transplant 05/04/18 Fidel De La Garza MD [address] [place], [place] 4720095 Consulting Hematology/Oncology 05/15/18 Halima [place] ([place]), [place] [address] [place] [address] Specialty Blanket Binder Hospice & Palliative Medicine 05/15/18 Nancie Low, ALICIA [address] [place], [place] 804481 Specialty Blanket Binder Hematology/Oncology 04/26/22 Marta Lui, ALICIA [address] [place] [address] Regional Refrigerated Cdl Truck Driver 02/22/23 Murray Mooney MD [address] [place] [address] Hematology/Oncology 05/03/23 Leno Márquez MD [address] [phone] Orthopedics 08/22/23 Loretta Leon, PA-C [address] [place], [place] 324961 Pulmonary and Critical Care Medicine 11/24/23 Tour Agent Relationship Specialty Start Date End Date Ovidio Vincent MD [address]40 [place], [place] 846826 [phone] PCP - General Family Medicine 03/16/21 Becky Leija MD [address] [place] [address] Physician Radiation Oncology 11/24/17 Tato Castro MD [address] [place] [address] Pain Management Anesthesiology 01/30/18 Santos Woods MD 9500 [facility] [place], [place] 2710495 Physician Blood and Marrow Transplant 05/04/18 Fidel De La Garza MD [address] [place], [place] 2197295 Consulting Hematology/Oncology 05/15/18 Hal[place] ([place]), [place] [address] [address] [place], [place] 6551406 Specialty Blanket Binder Hospice & Palliative Medicine 05/15/18 Nancie Low, ALICIA [address] [facility] [place], [place] [phone] Specialty Blanket Binder Hematology/Oncology 04/26/22 Marta Lui, ALICIA [address] [place], [place] 6526331 Regional Refrigerated Cdl Truck Driver 02/22/23 Murray Mooney MD [address] [place], [place] 59120691 Hematology/Oncology 05/03/23 Leno Márquez MD [address] [phone] Orthopedics 08/22/23 Loretta Leon, PA-C [address] [place], [place] 20787691 Pulmonary and Critical Care Medicine 11/24/23 Tour Agent Relationship Specialty Start Date End Date Ovidio Vincent MD [address] [place], [place] [phone] PCP - General Family Medicine 03/16/21 Becky Leija MD [address] [place], [place] 13912691 Physician Radiation Oncology 11/24/17 Tato Castro MD [address] [place] [address] [phone] Pain Management Anesthesiology 01/30/18 Santos Woods MD [address] 6484795 Physician Blood and Marrow Transplant 05/04/18 Fidel De La Garza MD [address] [place], [place] 0336995 Consulting Hematology/Oncology 05/15/18 Halima [place] ([place]n), [place] [address] [place] [address] Specialty Blanket Binder Hospice & Palliative Medicine 05/15/18 Nancie Low, ALICIA [address] [facility] [place], [place] 63216691 Specialty Blanket Binder Hematology/Oncology 04/26/22 Marta Lui, ALICIA [address] [place] [address] Regional Refrigerated Cdl Truck Driver 02/22/23 Murray Mooney MD [address] [facility] [place], [place] [phone] Hematology/Oncology 05/03/23 Leno Márquez MD [address] [address] Orthopedics 08/22/23 Loretta Leon, PA-C [address] [place], [place] 020281 Pulmonary and Critical Care Medicine 11/24/23 Tour Agent Relationship Specialty Start Date End Date Ovidio Vincent MD [address] [place], [place] [phone] PCP - General Family Medicine 03/16/21 Becky Leija MD [address] [place], [place] 70471691 Physician Radiation Oncology 11/24/17 KrissyTato MD [address] [place] [address] [phone] Pain Management Anesthesiology 01/30/18 Santos Woods MD 9500 [facility] [address] 2957195 Physician Blood and Marrow Transplant 05/04/18 Fidel De La Garza MD [address]00 [place] [address] Consulting Hematology/Oncology 05/15/18 Halima [place] ([place]), [place] [address] [place] [address] Specialty Blanket Binder Hospice & Palliative Medicine 05/15/18 Nancie Low, ALICIA [address] [place], [place] [phone] Specialty Blanket Binder Hematology/Oncology 04/26/22 Marta Lui, ALICIA [address] [place] [address] Regional Refrigerated Cdl Truck Driver 02/22/23 Murray Mooney MD [address]21 [place] [address] Hematology/Oncology 05/03/23 Leno Márquez MD [address] [address] Orthopedics 08/22/23 Loretta Leon, PA-C [address] [place] [address] Pulmonary and Critical Care Medicine 11/24/23 Tour Agent Relationship Specialty Start Date End Date Ovidio Vincent MD [address] [place], [place] [phone] PCP - General Family Medicine 03/16/21 Becky Leija MD [address] [place] [address] Physician Radiation Oncology 11/24/17 [facility] [address] [place] [address] [phone] Pain Management Anesthesiology 01/30/18 Santos Woods MD [address] [place] [address] Physician Blood and Marrow Transplant 05/04/18 Fidel De La Garza MD [address] [place] [address] Consulting Hematology/Oncology 05/15/18 Halima [place] ([place]), [place] [address] [place] [address] Specialty Blanket Binder Hospice & Palliative Medicine 05/15/18 Nancie Low, ALICIA [address] [place] [address] Specialty Blanket Binder Hematology/Oncology 04/26/22 Marta Lui, ALICIA [address] [place] [address] Regional Refrigerated Cdl Truck Driver 02/22/23 Murray Mooney MD [address] [place] [address] Hematology/Oncology 05/03/23 Leno Márquez MD [address] [phone] Orthopedics 08/22/23 Loretta Leon PAAndriyC [address]21 [place] [address] Pulmonary and Critical Care Medicine 11/24/23 Tour Agent Relationship Specialty Start Date End Date Ovidio Vincent MD [address]40 [place], [place] 482871 PCP - General Family Medicine 03/16/21 Becky Leija MD [address]21 [place] [address] Physician Radiation Oncology 11/24/17 Tato Castro MD 546 [place] [address] Pain Management Anesthesiology 01/30/18 Santos Woods MD [address] [address] Physician Blood and Marrow Transplant 05/04/18 Fidel De La Garza MD [address] [place], [place] 6366195 Consulting Hematology/Oncology 05/15/18 Halima [place] ([place]), [place] [address] [place] [address] Specialty Blanket Binder Hospice & Palliative Medicine 05/15/18 Nancie Low, ALICIA [address] [place], [place] 325091 Specialty Blanket Binder Hematology/Oncology 04/26/22 Marta Lui, ALICIA [address] [place], [place] 8178131 Regional Refrigerated Cdl Truck Driver 02/22/23 Murray Mooney MD [address] [place], [place] 049131 Hematology/Oncology 05/03/23 Leno Márquez MD [address] [phone] Orthopedics 08/22/23 Loretta Leon, PA-C [address] [place], [place] 355691 Pulmonary and Critical Care Medicine 11/24/23 Tour Agent Relationship Specialty Start Date End Date Ovidio Vincent MD [address]40 [place], [place] 336071 [phone] PCP - General Family Medicine 03/16/21 Becky Leija MD [address] [place] [address] Physician Radiation Oncology 11/24/17 Tato Castro MD [address] [place] [address] Pain Management Anesthesiology 01/30/18 Santos Woods MD 9500 [facility] [address] 7072295 Physician Blood and Marrow Transplant 05/04/18 Fidel De La Garza MD [address] [place], [place] 4357895 Consulting Hematology/Oncology 05/15/18 Halima [place] ([place]n), [place] [address] [address] [place], [place] 3373606 Specialty Blanket Binder Hospice & Palliative Medicine 05/15/18 Nancie Low, ALICIA [address] [facility] [place] 67082691 Specialty Blanket Binder Hematology/Oncology 04/26/22 Marta Lui, ALICIA [address] [place] [address] Regional Refrigerated Cdl Truck Driver 02/22/23 Murray Mooney MD [address] [place], [place] [phone] Hematology/Oncology 05/03/23 Leno Márquez MD [address] [phone] Orthopedics 08/22/23 Loretta Leon PA-C [address] [facility] [place], [place] 27865691 Pulmonary and Critical Care Medicine 11/24/23 Tour Agent Relationship Specialty Start Date End Date Ovidio Vincent MD [address] [place], [place] [phone] PCP - General Family Medicine 03/16/21 Becky Leija MD [address] [place], [place] 54015691 Physician Radiation Oncology 11/24/17 Tato Castro MD [address] [place] [address] [phone] Pain Management Anesthesiology 01/30/18 Santos Woods MD [address] [place], [place] 7914695 Physician Blood and Marrow Transplant 05/04/18 Fidel De La Garza MD [address] [place], [place] 7595295 Consulting Hematology/Oncology 05/15/18 Halima [place] ([place]n), [place] [address] [place] [address] Specialty Blanket Binder Hospice & Palliative Medicine 05/15/18 Nargis rOtega RN 6000 [place], [place] [phone] Regional Refrigerated Cdl Truck Driver 05/27/21 10/20/22 Ela Alvarez MD 6000 [place] [address] Hematology/Oncology 04/26/22 05/02/23 Nancie Low, ALICIA [address] [place], [place] 07009691 Specialty Blanket Binder Hematology/Oncology 04/26/22 Tour Agent Relationship Specialty Start Date End Date Ovidio Vincent MD [address] [place], [place] [phone] PCP - General Family Medicine 03/16/21 Becky Leija MD [address] [place], [place] 187991 Physician Radiation Oncology 11/24/17 Tato Castro MD [address] [place], [place] 650161 Pain Management Anesthesiology 01/30/18 Santos Woods MD 9500 [facility] [address] 8972195 Physician Blood and Marrow Transplant 05/04/18 Fidel De La Garza MD [address] [place], [place] 8566995 Consulting Hematology/Oncology 05/15/18 Halima [place] ([place]), [place] [address] [place], [place] 5566706 Specialty Blanket Binder Hospice & Palliative Medicine 05/15/18 Nancie Low, ALICIA [address] [place], [place] [phone] Specialty Blanket Binder Hematology/Oncology 04/26/22 Marta Lui, ALICIA [address] [place], [place] [phone] Regional Refrigerated Cdl Truck Driver 02/22/23 Murray Mooney MD [address] [place], [place] 69384691 Hematology/Oncology 05/03/23 Leno Márquez MD [address] [address] Orthopedics 08/22/23 Loretta Leon, PA-C [address] [place], [place] 77060691 Pulmonary and Critical Care Medicine 11/24/23 Tour Agent Relationship Specialty Start Date End Date Ovidio Vincent MD [address] [place], [place] [phone] PCP - General Family Medicine 03/16/21 Becky Leija MD [address] [place], [place] [phone] Physician Radiation Oncology 11/24/17 KrissyTato MD [address] [place] [address] [phone] Pain Management Anesthesiology 01/30/18 Santos Woods MD 9504 [facility] [address] [address] Physician Blood and Marrow Transplant 05/04/18 Fidel De La Garza MD [address]357 [place] [address] Consulting Hematology/Oncology 05/15/18 Halima [place] ([place]), [place] [address] [place] [address] Specialty Blanket Binder Hospice & Palliative Medicine 05/15/18 Nancie Low, ALICIA [address] [place], [place] [phone] Specialty Blanket Binder Hematology/Oncology 04/26/22 Marta Lui, ALICIA [address] [place] [address] Regional Refrigerated Cdl Truck Driver 02/22/23 Murray Mooney MD [address] [place], [place] [phone] Hematology/Oncology 05/03/23 Leno Márquez MD [address] [phone] Orthopedics 08/22/23 Loretta Leon, PA-C [address] [facility] [place], [place] 21156691 Pulmonary and Critical Care Medicine 11/24/23 Tour Agent Relationship Specialty Start Date End Date Ovidio Vincent MD [address] [place], [place] [id number] PCP - General Family Medicine 03/16/21 Becky Leija MD [address] [place], [place] [phone] Physician Radiation Oncology 11/24/17 [facility] [address] [place], [place] [phone] Pain Management Anesthesiology 01/30/18 Santos Woods MD [address] [place], [place] 1618395 Physician Blood and Marrow Transplant 05/04/18 Fidel De La Garza MD [address] [place] [address] Consulting Hematology/Oncology 05/15/18 Halima Cohen (Rn), [place] [address] [address] [place], [place] 5739006 Specialty Blanket Binder Hospice & Palliative Medicine 05/15/18 Nancie Low, ALICIA [address] [facility] [place], [place] 91702691 Specialty Blanket Binder Hematology/Oncology 04/26/22 Marta Lui, ALICIA [address] [place], [place] [phone] Regional Refr[employer]ated Cdl Truck Driver 02/22/23 Murray Mooney MD [address] [place] [address] Hematology/Oncology 05/03/23 Leno Márquez MD [address] [phone] Orthopedics 08/22/23 Loretta Leon, PA-C [address] [place] [address] Pulmonary and Critical Care Medicine 11/24/23 Tour Agent Relationship Specialty Start Date End Date Ovidio Vincent MD [address]40 [place] [address] PCP - General Family Medicine 03/16/21 Becky Leija MD [address] [place] [address] Physician Radiation Oncology 11/24/17 Tato Castro MD [address] [place] [address] 077051 Pain Management Anesthesiology 01/30/18 Santos Woods MD [address] [place] [address] Physician Blood and Marrow Transplant 05/04/18 Fidel De La Garza MD [address] [place] [address] Consulting Hematology/Oncology 05/15/18 Halima [place] (Rn), [place] [address] [address] [place], [place] 6013906 Specialty Blanket Binder Hospice & Palliative Medicine 05/15/18 Nancie Low, ALICIA [address] [place], [place] 251021 Specialty Blanket Binder Hematology/Oncology 04/26/22 Marta Lui, ALICIA [address] [place], [place] [phone] Regional Ref[employer]ated Cdl Truck Driver 02/22/23 Murray Mooney MD [address] [place], [place] 188791 Hematology/Oncology 05/03/23 Leno Márquez MD [address] [phone] Orthopedics 08/22/23 Loretta Leon, PA-C [address] [place] [address] Pulmonary and Critical Care Medicine 11/24/23 Tour Agent Relationship Specialty Start Date End Date Ovidio Vincent MD 1740 [place] [address] PCP - General Family Medicine 03/16/21 Becky Leija MD [address] [place] [address] Physician Radiation Oncology 11/24/17 Tato Castro MD [address] [place] [address] Pain Management Anesthesiology 01/30/18 Santos Woods MD 9500 [facility] [address] [place], [place] 8709895 Physician Blood and Marrow Transplant 05/04/18 Fidel De La Garza MD [address] [place], [place] 9592695 Consulting Hematology/Oncology 05/15/18 Hailma Cohen (Rn), [place] [address] [address] [place], [place] 5568606 Specialty Blanket Binder Hospice & Palliative Medicine 05/15/18 Nancie Low, ALICIA [address] [facility] [place], [place] [phone] Specialty Blanket Binder Hematology/Oncology 04/26/22 Marta Lui, ALICIA [address] [place] [address] Regional Refr[employer]ated Cdl Truck Driver 02/22/23 Murray Mooney MD [address] [place], [place] [phone] Hematology/Oncology 05/03/23 Leno Márquez MD [address] [phone] Orthopedics 08/22/23 Loretta Leon PA-C [address] [place], [place] [phone] Pulmonary and Critical Care Medicine 11/24/23 Tour Agent Relationship Specialty Start Date End Date Ovidio Vincent MD [address] [place], [place] [phone] PCP - General Family Medicine 03/16/21 Becky Leija MD [address] [place] [address] Physician Radiation Oncology 11/24/17 Tato Castro MD [address] [place], [place] 970501 Pain Management Anesthesiology 01/30/18 Santos Woods MD 9500 [facility] [address] 8554395 Physician Blood and Marrow Transplant 05/04/18 Fidel De La Garza MD [address] [place], [place] 4201395 Consulting Hematology/Oncology 05/15/18 Halima Cohen ([place]n), [place] [address] [place], [place] [phone] Specialty Blanket Binder Hospice & Palliative Medicine 05/15/18 Nancie Low, ALICIA [address] [place] [address] Specialty Blanket Binder Hematology/Oncology 04/26/22 Murray Mooney MD [address] [place] [address] Hematology/Oncology 05/03/23 Leno Márquez MD [address] [phone] Orthopedics 08/22/23 Loretta Leon PAAndriyC [address] [place] [address] Pulmonary and Critical Care Medicine 11/24/23 Tour Agent Relationship Specialty Start Date End Date Ovidio Vincent MD [address]40 [place], [place] 006451 PCP - General Family Medicine 03/16/21 Becky Leija MD [address] [place], [place] [id number] Physician Radiation Oncology 11/24/17 Tato Castro MD [address] [place], [place] 366211 Pain Management Anesthesiology 01/30/18 Santos Woods MD [facility]00 [facility] [address] [address] Physician Blood and Marrow Transplant 05/04/18 Fidel De La Garza MD [address] [place] [address] Consulting Hematology/Oncology 05/15/18 Halima [place] (Rn), [place] [address] [place], [place] [id number] Specialty Blanket Binder Hospice & Palliative Medicine 05/15/18 Nancie Low, ALICIA [address], [place] [phone] Specialty Blanket Binder Hematology/Oncology 04/26/22 Murray Mooney MD [address], [place] [id number] Hematology/Oncology 05/03/23 Leno Márquez MD [address] [address] Orthopedics 08/22/23 Loretta Leon PA-C [address] [place], [place] 074891 Pulmonary and Critical Care Medicine 11/24/23 Tour Agent Relationship Specialty Start Date End Date Ovidio Vincent MD [address] [place], [place] [id number] PCP - General Family Medicine 03/16/21 Becky Leija MD [address], [place] [phone] Physician Radiation Oncology 11/24/17 Tato Castro MD [address] [place] [address] [id number] Pain Management Anesthesiology 01/30/18 Santos Woods MD 9500 [facility] [address] [place], [place] 2679995 Physician Blood and Marrow Transplant 05/04/18 Fidel De La Garza MD [address] [place] [address] Consulting Hematology/Oncology 05/15/18 Halima [place] ([place]), [place] [address] [place], [place] [phone] Specialty Blanket Binder Hospice & Palliative Medicine 05/15/18 Nancie Low, ALICIA [address] [place], [place] [id number] Specialty Blanket Binder Hematology/Oncology 04/26/22 Murray Mooney MD [address] [place], [place] [phone] Hematology/Oncology 05/03/23 Leno Márquez MD [address] [id number] Orthopedics 08/22/23 Loretta Leon PA-C [address], [place] 652231 Pulmonary and Critical Care Medicine 11/24/23 Rebecca Jansen APRN.DOUGHNUT ICER MACHINE [address] [place], [place] [phone] [facility] 08/24/24 Leslye Winter PA-C [address] [place], [place] [id number] [facility] 08/24/24 Tour Agent Relationship Specialty Start Date End Date Ovidio Vincent MD [address] [place], [place] [phone] PCP - General Family Medicine 03/16/21 Becky Leija MD [address], [place] [phone] Physician Radiation Oncology 11/24/17 Tato Castro MD [address] [place] [address] Pain Management Anesthesiology 01/30/18 Santos Woods MD [address] [address] Physician Blood and Marrow Transplant 05/04/18 Fidel De La Garza MD [address] [place] [address] Consulting Hematology/Oncology 05/15/18 Halima [place] ([place]), [place] [address] [place] [address] Specialty Blanket Binder Hospice & Palliative Medicine 05/15/18 Nancie Low, ALICIA [address] [place], [place] 444731 Specialty Blanket Binder Hematology/Oncology 04/26/22 Murray Mooney MD [address] [place] [address] Hematology/Oncology 05/03/23 Leno Márquez MD [address] [id number] Orthopedics 08/22/23 Loretta Leon PA-C [address] [place] [address] Pulmonary and Critical Care Medicine 11/24/23 Rebecca Jansen APRN.DOUGHNUT ICER MACHINE [address] [place], [place] 511890 [phone] [facility] Care [facility] Administrator Family Medicine 08/24/24 Leslye Winter PA-C [address] [place] [address] Child Care Center Administrator Family Medicine 08/24/24 Tour Agent Relationship Specialty Start Date End Date Ovidio Vincent MD [address] [place] [address] PCP - General Family Medicine 03/16/21 Becky Leija MD [address] [place] [address] Physician Radiation Oncology 11/24/17 Tato Castro MD [address] [place] [address] Pain Management Anesthesiology 01/30/18 Santos Woods MD [address]00 [facility] [address] [phone] Physician Blood and Marrow Transplant 05/04/18 Fidel De La Garza MD 2614 [facility] [place], [place] 5581995 Consulting Hematology/Oncology 05/15/18 Halima [place] ([place]n), [place] [address] [place], [place] [phone] Specialty Blanket Binder Hospice & Palliative Medicine 05/15/18 Nancie Low, ALICIA [address] [place], [place] [phone] Specialty Blanket Binder Hematology/Oncology 04/26/22 Murray Mooney MD [address] [place] [address] Hematology/Oncology 05/03/23 Leno Márquez MD [address] [address] Orthopedics 08/22/23 Loretta Leon PA-C [address] [place] [address] Pulmonary and Critical Care Medicine 11/24/23 Rebecca Jansen APRN.DOUGHNUT ICER MACHINE [address] [place] [address] [phone] Child Care Center Administrator Family Medicine 08/24/24 Leslye Winter PA-C [address] [place] [address] [phone] Child Care Center Administrator Family Medicine 08/24/24 Tour Agent Relationship Specialty Start Date End Date Ovidio Vincent MD [address] [place] [address] [id number] PCP - General Family Medicine 03/16/21 Becky Leija MD [address] [place], [place] [id number] Physician Radiation Oncology 11/24/17 [facility] [address] [place] [address] Pain Management Anesthesiology 01/30/18 Santos Woods MD [address] [address] Physician Blood and Marrow Transplant 05/04/18 Fidel De La Garza MD [address] [place] [address] Consulting Hematology/Oncology 05/15/18 Halima [place] ([place]n), [place] [address] [place] [address] Specialty Blanket Binder Hospice & Palliative Medicine 05/15/18 Nancie Low, ALICIA [address] [facility] [place] [place] [phone] Specialty Blanket Binder Hematology/Oncology 04/26/22 Murray Mooney MD [address] [place] [address] Hematology/Oncology 05/03/23 Leno Márquez MD [address] [address] Orthopedics 08/22/23 Loretta Leon PAAndriyC [address] [place] [address] Pulmonary and Critical Care Medicine 11/24/23 Rebecca Jansen APRN.DOUGHNUT ICER MACHINE [address] [place] [address] Child Care Center Administrator Family Medicine 08/24/24 Leslye Winter PA-C [address] [place] [address] Child Care Center Administrator Family [facility] 08/24/24 Tour Agent Relationship Specialty Start Date End Date Ovidio Vincent MD [address] [place] [address] PCP - General Family Medicine 03/16/21 Becky Leija MD [address] [place] [address] Physician Radiation Oncology 11/24/17 Tato Castro MD [address] [place] [address] Pain Management Anesthesiology 01/30/18 Santos Woods MD [address] [phone] Physician Blood and Marrow Transplant 05/04/18 Fidel De La Garza MD [address] [place], [place] 1124995 Consulting Hematology/Oncology 05/15/18 Hal[place] ([place]), [place] [address] [place] [address] Specialty Blanket Binder Hospice & Palliative Medicine 05/15/18 Nancie Low, ALICIA [address] [place], [place] 891181 Specialty Blanket Binder Hematology/Oncology 04/26/22 Murray Mooney MD [address] [place], [place] 391851 Hematology/Oncology 05/03/23 Leno Márquez MD [address] [id number] Orthopedics 08/22/23 Loretta Leon PA-C [address] [place] [address] Pulmonary and Critical Care Medicine 11/24/23 Rebecca Jansen, ESSENCE.DOUGHNUT ICER MACHINE [address] [place], [place] 726181 Child Care Center Administrator Family [facility] 08/24/24 Leslye Winter PA-C [address] [place], [place] 805121 Child Care Center Administrator Family [facility] 08/24/24 Tour Agent Relationship Specialty Start Date End Date Ovidio Vincent MD [address] [place], [place] [id number] [phone] PCP - General Family Medicine 03/16/21 Becky Leija MD [address] [place], [place] [phone] Physician Radiation Oncology 11/24/17 Tato Castro MD [address] [place], [place] [phone] Pain Management Anesthesiology 01/30/18 Santos Woods MD [address] 3900695 Physician Blood and Marrow Transplant 05/04/18 Fidel De La Garza MD [address] [place], [place] 3331895 Consulting Hematology/Oncology 05/15/18 Halima [place] ([place]n), [place] [address] [place] [place], [place] 6036806 Specialty Blanket Binder Hospice & Palliative Medicine 05/15/18 Nancie Low, ALICIA [address] [place], [place] [phone] Specialty Blanket Binder Hematology/Oncology 04/26/22 Murray Mooney MD [address] [place] [address] Hematology/Oncology 05/03/23 Leno Márquez MD [address] [id number] Orthopedics 08/22/23 Loretta Leon, PA-C [address] [place], [place] 56087691 Pulmonary and Critical Care Medicine 11/24/23 Rebecca Jansen APRN.DOUGHNUT ICER MACHINE [address] [place], [place] [phone] [facility] 08/24/24 Leslye Winter PA-C [address] [place], [place] [phone] [facility] 08/24/24 Tour Agent Relationship Specialty Start Date End Date Ovidio Vincent MD [address] [place], [place] [phone] PCP - General Family Medicine 03/16/21 Becky Leija MD [address], [place] [phone] Physician Radiation Oncology 11/24/17 Tato Castro MD [address] [place] [address] [phone] Pain Management Anesthesiology 01/30/18 Santos Woods MD [address] [address] Physician Blood and Marrow Transplant 05/04/18 Fidel De La Garza MD [address] [place] [address] Consulting Hematology/Oncology 05/15/18 Halima [place] ([place]n), [place] [address] [place] [place], [place] 6672706 Specialty Blanket Binder Hospice & Palliative Medicine 05/15/18 Nancie Low RN [address] [facility] [place] [phone] Specialty Blanket Binder Hematology/Oncology 04/26/22 Murray Mooney MD [address] [place], [place] 228401 Hematology/Oncology 05/03/23 Leno Márquez MD [address] [phone] Orthopedics 08/22/23 Loretta Leon PA-C [address] [place] [address] Pulmonary and Critical Care Medicine 11/24/23 Rebecca Jansen APRN.[facility] [address] [place], [place] 934002 [phone] Child Care Center Administrator Family [facility] 08/24/24 Leslye Winter PA-C [address] [place], [place] 501216 [phone] [facility] 08/24/24 Tour Agent Relationship Specialty Start Date End Date Ovidio Vincent MD [address] [place] [address] PCP - General Family Medicine 03/16/21 Becky Leija MD [address] [place] [address] Physician Radiation Oncology 11/24/17 Tato Castro MD [address] [place] [address] Pain Management Anesthesiology 01/30/18 Santos Woods MD [address] [place] [address] Physician Blood and Marrow Transplant 05/04/18 Fidel De La Garza MD [address] [place], [place] 1792495 Consulting Hematology/Oncology 05/15/18 Halima [place] ([place]), [place] [address] [place] [address] Specialty Blanket Binder Hospice & Palliative Medicine 05/15/18 Nancie Low, ALICIA [address] [place] [phone] Specialty Blanket Binder Hematology/Oncology 04/26/22 Murray Mooney MD [address] [facility] [place] [address] Hematology/Oncology 05/03/23 Leno Márquez MD [address] [phone] Orthopedics 08/22/23 Loretta Leon PA-C [address] [place] [address] Pulmonary and Critical Care Medicine 11/24/23 Rebecca Jansen APRN.DOUGHNUT ICER MACHINE [address] [place] [address] Child Care Center Administrator Family Medicine 08/24/24 Leslye Winter PA-C [address] [place] [address] Child Care Center Administrator Family Medicine 08/24/24 Tour Agent Relationship Specialty Start Date End Date Ovidio Vincent MD [address] [place] [address] PCP - General Family Medicine 03/16/21 Becky Leija MD [address] [place] [address] Physician Radiation Oncology 11/24/17 Tato Castro MD [address] [place] [address] Pain Management Anesthesiology 01/30/18 Santos Woods MD [address] [facility] [address] [phone] Physician Blood and Marrow Transplant 05/04/18 Fidel De La Garza MD [address] [place] [address] Consulting Hematology/Oncology 05/15/18 Halima [place] ([place]), [place] [address] [place], [place] 3602206 Specialty Blanket Binder Hospice & Palliative Medicine 05/15/18 Nancie Low, ALICIA [address] [place], [place] [phone] Specialty Blanket Binder Hematology/Oncology 04/26/22 Murray Mooney MD [address] [place], [place] [phone] Hematology/Oncology 05/03/23 Leno Márquez MD [address] [address] Orthopedics 08/22/23 Loretta Leon, PA-C [address] [place], [place] 056641 Pulmonary and Critical Care Medicine 11/24/23 Rebecca Jansen APRN.DOUGHNUT ICER MACHINE [address] [place] [address] [phone] Child Care Center Administrator Family Medicine 08/24/24 Leslye Winter PA-C [address] [place] [address] [phone] Child Care Center Administrator Family [facility] 08/24/24 Tour Agent Relationship Specialty Start Date End Date Ovidio Vincent MD [address] [place] [address] [id number] PCP - General Family Medicine 03/16/21 Becky Leija MD [address] [place] [address] 808681 Physician Radiation Oncology 11/24/17 [facility] [address] [place] [address] Pain Management Anesthesiology 01/30/18 Santos Woods MD [address] [address] Physician Blood and Marrow Transplant 05/04/18 Fidel De La Garza MD [address] [place] [address] Consulting Hematology/Oncology 05/15/18 Halima [place] ([place]), [place] [address] [place] [place], [place] 0509506 Specialty Blanket Binder Hospice & Palliative Medicine 05/15/18 Nancie Low, RN [address] [place] [address] Specialty Blanket Binder Hematology/Oncology 04/26/22 Murray Mooney MD [address] [place] [address] Hematology/Oncology 05/03/23 Leno Márquez MD [address] [phone] Orthopedics 08/22/23 Loretta Leon PA-C [address] [place] [address] Pulmonary and Critical Care Medicine 11/24/23 Rebecca Jansen, ESSENCE.DOUGHNUT ICER MACHINE [address] [place] [address] Child Care Center Administrator Family Medicine 08/24/24 Leslye Winter PA-C [address] [place] [address] Child Care Center Administrator Family [facility] 08/24/24 Tour Agent Relationship Specialty Start Date End Date Ovidio Vincent MD [address] [place] [address] PCP - General Family Medicine 03/16/21 Becky Leija MD [address] [place] [address] Physician Radiation Oncology 11/24/17 Tato Castro MD [address] [place] [address] Pain Management Anesthesiology 01/30/18 Santos Woods MD 9500 [facility] [place], [place] 8149395 Physician Blood and Marrow Transplant 05/04/18 Fidel De La Garza MD [address] [place], [place] 9533195 Consulting Hematology/Oncology 05/15/18 Hal[place] ([place]), [place] [address] [address] [place], [place] [phone] Specialty Blanket Binder Hospice & Palliative Medicine 05/15/18 Nancie Low, ALICIA [address] [place], [place] [phone] Specialty Blanket Binder Hematology/Oncology 04/26/22 Murray Mooney MD [address] [place] [address] Hematology/Oncology 05/03/23 Leno Márquez MD [address] [phone] Orthopedics 08/22/23 Loretta Leon PA-C [address] [place] [address] Pulmonary and Critical Care Medicine 11/24/23 Rebecca Jansen APRN.DOUGHNUT ICER MACHINE [address] [place], [place] [phone] Child Care Center Administrator Family Medicine 08/24/24 Leslye Winter PA-C [address] [place], [place] [phone] Child Care Center Administrator Family Medicine 08/24/24 Tour Agent Relationship Specialty Start Date End Date Ovidio Vincent MD [address] [place], [place] [phone] PCP - General Family Medicine 03/16/21 Becky Leija MD [address] [place], [place] [phone] Physician Radiation Oncology 11/24/17 Tato Castro MD [address] [place], [place] [phone] Pain Management Anesthesiology 01/30/18 Santos Woods MD [address] 7672195 Physician Blood and Marrow Transplant 05/04/18 Fidel De La Garza MD [address] [place] [address] Consulting Hematology/Oncology 05/15/18 Halima [place] ([place]n), [place] [address] [place], [place] [phone] Specialty Blanket Binder Hospice & Palliative Medicine 05/15/18 Nancie Low, ALICIA [address] [place], [place] [phone] Specialty Blanket Binder Hematology/Oncology 04/26/22 Murray Mooney MD [address] [place], [place] [phone] Hematology/Oncology 05/03/23 Leno Márquez MD [address] [phone] Orthopedics 08/22/23 Loretta Leon PA-C [address] [place] [address] Pulmonary and Critical Care Medicine 11/24/23 Leslye Winter PA-C [address] [place] [address] Child Care Center Administrator Family Medicine 08/24/24 Team Status: Active Member Role Status Dates Dr. Ovidio Vincent MD Primary Care Provider Active Team Status: Inactive Member Role Status Dates Dr. Ovidio Vincent MD Primary Care Provider Active Start: December 05, 2024 End: December 05, 2024 Dr. Ovidio Vincent MD Referring Provider Active Start: December 05, 2024 End: December 05, 2024 Dr. Caio Gomez MD Attending Provider Active Start: December 05, 2024 End: December 05, 2024 Team Status: Inactive Member Role Status Dates Dr. Ovidio Vincent MD Primary Care Provider Active Start: December 05, 2024 End: December 05, 2024 Dr. Ronald De Paz MD Attending Provider Active S tart: December 05, 2024 End: December 05, 2024 Team Status: Inactive Member Role Status Dates Dr. Ovidio Vincent MD Primary Care Provider Active Start: January 02, 2025 End: January 02, 2025 Dr. Ovidio Vincent MD Referring Provider Active Start: January 02, 2025 End: January 02, 2025 Dr. Caio Gomez MD Attending Provider Active Start: January 02, 2025 End: January 02, 2025 Team Status: Inactive Member Role Status Dates Dr. Ovidio Vincent MD Primary Care Provider Active Start: February 17, 2025 End: February 17, 2025 Dr. Ovidio Vincent MD Referring Provider Active Start: February 17, 2025 End: February 17, 2025 Dr. Patsy Gamble MD Attending Provider Active Start: February 17, 2025 End: February 17, 2025 Tour Agent Relationship Specialty Start Date End Date Ovidio Vincent MD [address] [place] [address] PCP - General Family Medicine 03/16/21 Becky Leija MD [address] [place], [place] 843671 Physician Radiation Oncology 11/24/17 Tato Castro MD [address] [place] [address] 593761 Pain Management Anesthesiology 01/30/18 Santos Woods MD [address] [phone] Physician Blood and Marrow Transplant 05/04/18 Fidel De La Garza MD [address] [place], [place] [phone] Consulting Hematology/Oncology 05/15/18 Halima [place] ([place] [address] [place], [place] [phone] Specialty Blanket Binder Hospice & Palliative Medicine 05/15/18 Nancie Low, ALICIA [address] [place], [place] [phone] Specialty Blanket Binder Hematology/Oncology 04/26/22 Murray Mooney MD [address] [place], [place] [phone] Hematology/Oncology 05/03/23 Leno Márquez MD [address] [address] Orthopedics 08/22/23 Loretta Leon, PA-C [address] [place] [address] Pulmonary and Critical Care Medicine 11/24/23 Rebecca Jansen APRN.DOUGHNUT ICER MACHINE [address] [place] [address] [facility] 02/17/25 Leslye Winter PA-C [address] [place] [address] [facility] 02/17/25 Team Status: Inactive Member Role Status Dates Dr. Ovidio Vincent MD Primary Care Provider Active Start: February 21, 2025 End: February 21, 2025 Dr. Ovidio Vincent MD Referring Provider Active Start: February 21, 2025 End: February 21, 2025 Dr. Caio Gomez MD Attending Provider Active Start: February 21, 2025 End: February 21, 2025 Goals (unrecognized section and content) Goals may be documented in a n alternate sectionGoals may be documented in an alternate sectionGoals may be documented in an alternate sectionGoals may be documented in an alternate sectionGoals may be documented in an alternate sectionGoals may be documented in an alternate sectionGoals may be documented in an alternate section (unrecognized sect ion and content) No Status Records FoundNo Status Records FoundNo Status Records Found INFORMATION SOURCE (unrecogn ized section and content) DATE CREATED AUTHOR 11/03/2022 [facility] DATE CREATED AUTHOR AUTHOR'S ORGANIZ ATION 02/20/2025 [facility] DATE CREATED AUTHOR AUTHOR'S ORGANIZ ATION 02/22/2025 [facility] FOR RECORDS PERTAINING TO PATIENTS WHO ARE OR HAVE BEEN ENROLLED IN A CHEMICAL DEPENDENCY/SUBSTANCEABUSE PROGRAM, SOME INFORMATION MAY BE OMITTED. This clinical summary was aggregated from multiple sources. Caution should be exercised in using it in the provision of clinical care. This summary normalizes information from multiple sources, and as a consequence, information in this document may materially change the coding, format and clinical context of patient data. In addition, data may be omitted in some cases. CLINICAL DECISIONS SHOULD BE BASED ON THE PRIMARY CLINICAL RECORDS. [facility] provides no warranty or guarantee of the accuracy or completeness of information in this document.
--- NOTE | 2025-02-26 10:48 | STRESSREP_ITS ---
Stress Test Report Date: 02/26/2025 Procedure: Pharmacologic stress nuclear imaging study Indications: Preoperative workup Consent: Per the patient Procedure: The patient underwent pharmacologic (Regadenoson 0.4mg ) evaluation with a peak heart rate of 77 beats per minute (52%predicted maximal heart rate) and a peak blood pressure of 118/64 mmHg. The baseline ECG demonstrated sinus rhythm with occasional PVC. Nonspecific ST changes. The peak pharmacologic ECG did not show any ischemic changes. Occasional PVC pretest.. There was no complaint of chest discomfort during pharmacologic infusion or recovery. The patient was injected with 13.8 millicuries of technetium 99m Cardiolite and subsequently rest SPECT Cardiolite nuclear imaging was obtained in the horizontal long, vertical long, and short axis views. The patient underwent pharmacologic (Regadenoson) evaluation. The patient was injected with 39.1 millicuries of technetium 99m Cardiolite and subsequently stress SPECT Cardiolite nuclear imaging was obtained in the horizontal long, vertical long, and short axis views. A gated Cardiolite study at peak stress was obtained. The examination was stopped secondary to completion of protocol. Rest and stress SPECT Cardiolite nuclear imaging status post realignment, normalization, and attenuation correction demonstrate no fixed or reversible perfusion defects. There is end systolic thickening and brightening. The gated Cardiolite study demonstrates myocardial thickening and inward wall motion. The reported LVEF is 76%. Impression: 1. Pharmacologic (Regadenoson) evaluation 2. Peak pharmacologic ECG with no diagnostic ischemic changes. 3. Occasional PVC noted pretest. 5. Rest and stress SPECT Cardiolite nuclear imaging demonstrate relative uniform tracer uptake and myocardial perfusion appearing within normal limits. 6. The gated Cardiolite study reports an LVEF of 76%. This note was generated with [employer] software. It may contain incorrect words, spelling, and punctuation that were not noted in checking the note before signing.
== END | disposition home or self-care (01) ==
LOC: CVS 06:02
PROVIDERS: PCP Family Medicine; Referring Provider Internal Medicine Cardiovascular Disease; Visit Provider Internal Medicine Cardiovascular Disease
DX: Z01.810 Encounter for preprocedural cardiovascular examination (principal); I48.0 Paroxysmal atrial fibrillation; R94.31 Abnormal electrocardiogram [ECG] [EKG]
CPT/HCPCS: 78452; 93017; 93306; A9500; A4216; J2785

== ENCOUNTER 2025-03-04 05:19 | Day surgery (SDC) | payer MEDICARE, SELFPAY ==
--- NOTE | 2025-02-17 12:24 | PAT.ANE_ITS ---
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 When Was Last Pacemaker Check QUESTION #4 FULL TEXT: You/Your Family Experience fever (hyperthermia) with Anesthesia Last Oral Intake Last Oral intake: Last Oral Intake NPO since Meds taken in AM with sips of water? Meds patient instructed to take am of surgery PONV PONV - urinalysis technician: PONV - urinalysis technician Female No 02/04/25 09:31 HX of Motion Sickness No 02/04/25 09:31 HX of N/V After Surgery No 02/04/25 09:31 Non-Smoker Yes 02/04/25 09:31 Duration of Surgery greater Yes 02/04/25 09:31 than 60 minutes Number of Risk Factors 2 02/04/25 09:31 PONV Score Moderate Risk 02/04/25 09:31 Height & Weight Height & Weight: Anesthesia: Height & Weight Height 5 ft 9 in 12/05/24 10:30 Respiratory Assessment Respiratory Assessment - urinalysis technician: Respiratory Tract Infection Hx - urinalysis technician Hx Respiratory Tract Infection No 02/04/25 09:31 STOP Sleep Apnea STOP Sleep Apnea - urinalysis technician: STOP Sleep Apnea - urinalysis technician Hx Hypertension Yes: CONTROLLED ON MED 02/04/25 09:31 Hx Sleep Apnea No 02/04/25 09:31 CPAP BIPAP Do you snore loudly (louder No 02/04/25 09:31 than talking or can be heard Do you often feel tired/ No 02/04/25 09:31 fatigued/ sleepy during daytime? Has anyone observed you stop No 02/04/25 09:31 breathing during sleep? STOP Results Negative 02/04/25 09:31 QUESTION #5 FULL TEXT : Do you snore loudly (louder than talking or can be heard through closed doors)? 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 Specify any problems Hx of Preganancy in last 3 N/A 02/04/25 09:31 Months Nurse Filling Out Transfusion VCHRISTIN 02/04/25 09:31 & Questions: Date: 02/04/25 02/04/25 09:31 Time: 09:32 02/04/25 09:31 Patient unable to answer at this time (ie. confused, unrespo /Reproduction History /Reproductive History - urinalysis technician: /Reproductive Hx- urinalysis technician Hx Now No 02/04/25 09:31 Gestational Age (in weeks): EDC: Hx Hx Para Hx Section SAB No 02/04/25 09:31 PFSH Medical History Abnormal ECG Ambulates with cane Back pain Bone tumor Cancer Cardiology follow-up encounter COPD (chronic obstructive pulmonary disease) Debility Diabetes mellitus DVT of lower extremity, bilateral Essential hypertension Former smoker Gastric reflux GERD (gastroesophageal reflux disease) High cholesterol History of echocardiogram History of edema History of Holter monitoring History of multiple myeloma History of steroid therapy History of stress test Hyperlipidemia Injury of back Injury of head and neck Joint infection of right wrist Multiple myeloma Osteoarthritis Paroxysmal atrial fibrillation Pre-op testing Rheumatoid arthritis Thoracic spinal stenosis Wears glasses Wears hearing aid Home Medications ?Medication ?Instructions ?Recorded ?Last Taken ?Type aspirin 81 mg tablet,delayed 81 mg PO DAILY Heart 12/18 Unknown History release calcium carb-ergocalciferol (vit 200 tab PO DAILY Supp lment 01/05/23 Unknown History D2) 600 mg calcium-200 unit tablet cholecalciferol (vitamin D3) 50 50 mcg PO DAILY Supple ment 01/05/23 Unknown History mcg (2,000 unit) tablet cyanocobalamin (vitamin B-12) 1,000 mcg PO DAILY Suppl ement 01/05/23 Unknown History 1,000 mcg capsule losartan 25 mg tablet 12.5 mg PO DAILY BP 01/05/23 Unknown History metformin 1,000 mg tablet 1,000 mg PO BID DM 01/05/23 Unknown History multivitamin 1 tab PO DAILY Supplement Unknown History omeprazole 40 mg capsule,delayed 40 mg PO DAILY GERD 0 01/05/23 Unknown History release dapagliflozin propanediol 10 mg 10 mg PO DAILY 3 Unknown History tablet (Farxiga) fluticasone fur. 100 mcg-umeclid 1 inh inhalation SUSHIL Y 05/02/23 Unknown History 62.5 mcg-vilant 25 mcg inhalat.powder (Trelegy Ellipta) torsemide 20 mg tablet 20 mg PO DAILY 08/17/23 Unkn own History atorvastatin 40 mg tablet 40 mg PO QDAY 03/06/24 Unkno wn History terbinafine HCl 250 mg tablet 250 mg PO DAILY Antifung al 03/06/24 Unknown History magnesium oxide 250 mg PO BID 08/08/24 Unkno wn History oxycodone 5 mg tablet 5 mg PO TID PRN pain 5 Unknown History carvedilol 12.5 mg tablet 12.5 mg PO BID #180 tabs 01/10 Unknown Rx dulaglutide 3 mg/0.5 mL 3 mg subcut QWEEK 02/04/25 U nknown History subcutaneous pen injector (Trulicity) Allergy/AdvReac Type Severity Reaction Status Date / Time No Known Allergies Allergy Verified 02/17/25 10:51 Family History Father Cancer, Onset Age: 52 Pancreatic cancer. Diabetes Sister Diabetes Grandmother Diabetes Surgical History History of bone marrow transplant History of carpal tunnel surgery of right wrist History of colonoscopy History of esophagogastroduodenoscopy History of laminectomy History of lumbar fusion History of reverse total replacement of right shoulder joint History of tonsillectomy History of total left knee replacement (TKR) (~08/2023) History of total right knee replacement (TKR) Hx of bilateral cataract extraction Hx of eye surgery Hx of fusion of cervical spine Social History household members: spouse Smoking Status: Former smoker quit date: 09/18/12 alcohol intake: current alcohol intake frequency: a few times a month substance use type: does not use caffeine: Yes Type: coffee Number of servings: 3 Audit: Pertinent Findings Pertinent Findings EKG Perinent findings: 03/06/2024: EKG Sinus rhythm WNL Echo (EF%) pertinent findings: Echocardiogram 05/29/2023: Interpretation Summary Mild concentric left ventricular hypertrophy. The left ventricular ejection fraction is 70 % The left atrium is mildly enlarged. Aortic sclerosis, no stenosis. Mildly dilated aortic root. The study was technically difficult. Additional pertinent findings: 48-Hour Holter Monitor Report 08/21/2024: Interpretation: There were a total of [id number] beats recorded over the 48 hours The average heart rate was 72 bpm in Normal Sinus Rhythm with episodes of Sinus Arrhythmia. The minimum heart rate was 32 bpm in sinus bradycardia recorded at 4:53:22 AM D2. The maximum heart rate was 111 bpm in Sinus Tachycardia recorded at 1:07:14 PM D1. There were a total of 7845 ventricular ectopic beats comprisong of 3.8% of the total QRS complexes. 131 ventricular couplets. 7 ventricular triplets. 61 beats of ventricular bigeminy. 141 beats of ventricular trigeminy. No runs noted. There were a total of 1711 supraventricular ectopic beats comprising 0.8% of the total QRS complexes. 41 atrial couplets. 10 beats of atrial bigeminy. 2 atrial runs totaling 6 beats. The longest and fastest run was 3 beats rate 148 BPM recorded at 6:49:25 PM D1. The longest R-R interval was 2.6 seconds recorded at 6:16:53 AM D1. There was no atrial fibrillation. The patient kept a 48-hour diary. No symptoms recorded. Conclusion: 48- hour Holter Monitor in Normal Sinus Rhythm with episodes of Sinus Arrhythmia and frequent PVCs and occasional PACs. 14 Day Event Monitor 03/12/2024: Baseline sample showed SR with Trigeminal PVCs (7 in 1 min)/Couplet PACs with a heart rate of 73.2 bpm. There were 0 critical, 5 serious and 1 stable event that occurred. Recommendation Anesthesia Recommendation Anesthesia recommendation: F/U recommended (As per cardiology: (1) Preoperative cardiovascular examination: Plan: I will further risk stratify this gentleman with a Lexiscan stress Myoview. Also check echocardiogram. If these failed to show any significant abnormalities, then the patient may proceed with the proposed surgery with an)
--- NOTE | 2025-02-26 11:57 | PAT.ANESEVAL ---
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 When Was Last Pacemaker Check QUESTION #4 FULL TEXT: You/Your Family Experience fever (hyperthermia) with Anesthesia Last Oral Intake Last Oral intake: Last Oral Intake NPO since Meds taken in AM with sips of water? Meds patient instructed to take am of surgery PONV PONV - christian education director: PONV - christian education director Female No 02/04/25 09:31 HX of Motion Sickness No 02/04/25 09:31 HX of N/V After Surgery No 02/04/25 09:31 Non-Smoker Yes 02/04/25 09:31 Duration of Surgery greater Yes 02/04/25 09:31 than 60 minutes Number of Risk Factors 2 02/04/25 09:31 PONV Score Moderate Risk 02/04/25 09:31 Height & Weight Height & Weight: Anesthesia: Height & Weight Height 5 ft 9 in 12/05/24 10:30 Respiratory Assessment Respiratory Assessment - christian education director: Respiratory Tract Infection Hx - christian education director Hx Respiratory Tract Infection No 02/04/25 09:31 STOP Sleep Apnea STOP Sleep Apnea - christian education director: STOP Sleep Apnea - christian education director Hx Hypertension Yes: CONTROLLED ON MED 02/04/25 09:31 Hx Sleep Apnea No 02/04/25 09:31 CPAP BIPAP Do you snore loudly (louder No 02/04/25 09:31 than talking or can be heard Do you often feel tired/ No 02/04/25 09:31 fatigued/ sleepy during daytime? Has anyone observed you stop No 02/04/25 09:31 breathing during sleep? STOP Results Negative 02/04/25 09:31 QUESTION #5 FULL TEXT : Do you snore loudly (louder than talking or can be heard through closed doors)? 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 Specify any problems Hx of Preganancy in last 3 N/A 02/04/25 09:31 Months Nurse Filling Out Transfusion VCHRISTIN 02/04/25 09:31 & Questions: Date: 02/04/25 02/04/25 09:31 Time: 09:32 02/04/25 09:31 Patient unable to answer at this time (ie. confused, unrespo /Reproduction History /Reproductive History - christian education director: /Reproductive Hx- christian education director Hx Now No 02/04/25 09:31 Gestational Age (in weeks): EDC: Hx Hx Para Hx Section SAB No 02/04/25 09:31 PFSH Medical History Pre-op testing Wears hearing aid Wears glasses Cancer Multiple myeloma History of steroid therapy Ambulates with cane High cholesterol Back pain Injury of back Injury of head and neck Gastric reflux Former smoker History of edema History of stress test History of echocardiogram History of Holter monitoring Cardiology follow-up encounter Joint infection of right wrist DVT of lower extremity, bilateral Abnormal ECG Paroxysmal atrial fibrillation Essential hypertension History of multiple myeloma GERD (gastroesophageal reflux disease) Rheumatoid arthritis Osteoarthritis Diabetes mellitus COPD (chronic obstructive pulmonary disease) Hyperlipidemia Debility Thoracic spinal stenosis Bone tumor Home Medications ?Medication ?Instructions ?Recorded ?Last Taken ?Type aspirin 81 mg tablet,delayed 81 mg PO DAILY Heart 01/05/23 Unknown History release calcium carb-ergocalciferol (vit 200 tab PO DAILY Supplment 01/05/23 Unknown History D2) 600 mg calcium-200 unit tablet cholecalciferol (vitamin D3) 50 50 mcg PO DAILY Supplement 01/05/23 Unknown History mcg (2,000 unit) tablet cyanocobalamin (vitamin B-12) 1,000 mcg PO DAILY Supplement 01/05/23 Unknown History 1,000 mcg capsule losartan 25 mg tablet 12.5 mg PO DAILY BP 01/05/23 Unknown History metformin 1,000 mg tablet 1,000 mg PO BID DM 01/05/23 Unknown History multivitamin 1 tab PO DAILY Supplement 01/05/23 Unknown History omeprazole 40 mg capsule,delayed 40 mg PO DAILY GERD 01/05/23 Unknown History release dapagliflozin propanediol 10 mg 10 mg PO DAILY 05/02/23 Unknown History tablet (Farxiga) fluticasone fur. 100 mcg-umeclid 1 inh inhalation DAILY 05/02/23 Unknown History 62.5 mcg-vilant 25 mcg inhalat.powder (Trelegy Ellipta) torsemide 20 mg tablet 20 mg PO DAILY 08/17/23 Unknown History atorvastatin 40 mg tablet 40 mg PO QDAY 03/06/24 Unknown History terbinafine HCl 250 mg tablet 250 mg PO DAILY Antifungal 03/06/24 Unknown History magnesium oxide 250 mg PO BID 08/08/24 Unknown History oxycodone 5 mg tablet 5 mg PO TID PRN pain 12/05/24 Unknown History carvedilol 12.5 mg tablet 12.5 mg PO BID #180 tabs 12/20/24 Unknown Rx dulaglutide 3 mg/0.5 mL 3 mg subcut QWEEK 02/04/25 Unknown History subcutaneous pen injector (Trulicity) Allergy/AdvReac Type Severity Reaction Status Date / Time No Known Allergies Allergy Verified 02/21/25 09:58 Family History Father Cancer, Onset Age: 52 Pancreatic cancer. Diabetes Sister Diabetes Grandmother Diabetes Surgical History Hx of bilateral cataract extraction Hx of eye surgery History of total left knee replacement (TKR) (~08/2023) History of tonsillectomy History of laminectomy History of carpal tunnel surgery of right wrist History of esophagogastroduodenoscopy History of colonoscopy History of bone marrow transplant History of total right knee replacement (TKR) History of reverse total replacement of right shoulder joint History of lumbar fusion Hx of fusion of cervical spine Social History household members: spouse Smoking Status: Former smoker quit date: 09/18/12 alcohol intake: current alcohol intake frequency: a few times a month substance use type: does not use caffeine: Yes Type: coffee Number of servings: 3 Audit: Pertinent Findings HISTORY of Pertinent Findings History of Pertinent Findings: EKG Pertinent Findings EKG Perinent findings 03/06/2024: EKG Sinus rhythm 02/17/25 12:27 WNL Echo Pertinent Findings Echo (EF%) pertinent findings Echocardiogram 05/29/2023: 02/17/25 12:27 Interpretation Summary Mild concentric left ventricular hypertrophy. The left ventricular ejection fraction is 70 % The left atrium is mildly enlarged. Aortic sclerosis, no stenosis. Mildly dilated aortic root. The study was technically difficult. Additional Pertinent Findings Additional pertinent findings 48-Hour Holter Monitor 02/17/25 12:27 Report 08/21/2024: Interpretation: There were a total of [id number] beats recorded over the 48 hours The average heart rate was 72 bpm in Normal Sinus Rhythm with episodes of Sinus Arrhythmia. The minimum heart rate was 32 bpm in sinus bradycardia recorded at 4:53:22 AM D2. The maximum heart rate was 111 bpm in Sinus Tachycardia recorded at 1:07:14 PM D1. There were a total of 7845 ventricular ectopic beats comprisong of 3.8% of the total QRS complexes. 131 ventricular couplets. 7 ventricular triplets. 61 beats of ventricular bigeminy. 141 beats of ventricular trigeminy. No runs noted. There were a total of 1711 supraventricular ectopic beats comprising 0.8% of the total QRS complexes. 41 atrial couplets. 10 beats of atrial bigeminy. 2 atrial runs totaling 6 beats. The longest and fastest run was 3 beats rate 148 BPM recorded at 6:49:25 PM D1. The longest R-R interval was 2.6 seconds recorded at 6: 16:53 AM D1. There was no atrial fibrillation. The patient kept a 48-hour diary. No symptoms recorded. Conclusion: 48- hour Holter Monitor in Normal Sinus Rhythm with episodes of Sinus Arrhythmia and frequent PVCs and occasional PACs. 14 Day Event Monitor 2023: Baseline sample showed SR with Trigeminal PVCs (7 in 1 min)/Couplet PACs with a heart rate of 73.2 bpm. There were 0 critical, 5 serious and 1 stable event that occurred. Pertinent Findings Stress test pertinent findings: 02/26/2025. No ischemic changes on stress test. Occasional PVCs at pretest. EF 76% Consult pertinent findings: Cardiology 02/17/2025. Preoperative cardiovascular examination. Check Lexiscan stress Myoview. If no significant abnormalities, patient may proceed with proposed surgery. Recommendation Anesthesia Recommendation Anesthesia recommendation: OPTIMIZED for anesthesia
[2025-03-04] VITALS (11 sets, daily range): BP systolic 106–138; BP diastolic 64–81; PULSE 68–77; RESP 16–18; TEMP 36.1–36.9; O2SAT 92–100; BMI 29.0
--- OUTSIDE RECORDS SUMMARY | 2025-03-04 05:23 | XMS RPT_ITS | CCD ---
Author Organization [facility] Care Team Providers Care Mechanical Maintenance Technician Name Role Phone Heladio JOHNSON MD, Dalaurie Unavailable Ambika RN, Lola Unavailable Unavailable Tato [...] Dr. Patsy Gamble Attending Provider Navin PACHECO, ROOPAC Maria Isabel Attending Provider Tato Castro MD Unavailable Geo VARGAS, Mara Unavailable Unavailable Yulisa JOHNSON, Leno Martines Unavailable Dr. Ovidio Vincent Primary Care Provider Dr. Ovidio Vincent Referring Provider Dr. Patsy Gamble Attending Provider Heladio JOHNSON, Becky Unavailable Loretta Leon PA-C Unavailable Ovidio Vincent MD Primary Care Provider Ismael JOHNSON, Ovidio Peter Primary Care Provider Yulisa JOHNSON, Leno Unavailable Jordan VARGAS, Nargis Goddard Unavailable Ela Alvarez MD Unavailable [facility] HIGH SCHOOL LEARNING SUPPORT TEACHER.WASTEWATER DESIGN ENGINEER, Rebecca Unavailable Moy PALMER, Leslye Unavailable Ismael JOHNSON, Dr. Nolan Primary Care Provider Ismael JOHNSON, Dr. Nolan Referring Provider Jason JOHNSON, Dr. Solis Attending Provider Zandra JOHNSON, Dr. Cardenas Attending Provider Tye JOHNSON, Dr. Garner Attending Provider [place]rohan HIGH SCHOOL LEARNING SUPPORT TEACHER.WASTEWATER DESIGN ENGINEER, Rebecca Unavailable Moy PALMER Leslye Unavailable ISMAEL, OVIDIO A Primary Care Unavailable ESVIN MARCUS Referring Unavailable MURRAY MOONEY Referring Unavailable ISMAEL, OVIDIO A Primary Care Unavailable ISMAEL, OVIDIO A Primary Care Unavailable REBECCA JANSEN Attending Unavailable ISMAEL, OVIDIO A Attending Unavailable MOY LESLYE Referring Unavailable ISMAEL, OVIDIO A Primary Care Unavailable ISMAEL, OVIDIO A Primary Care Unavailable OVIDIO VINCENT Referring Unavailable ISMAEL, OVIDIO A Primary Care Unavailable MURRAY MOONEY Referring Unavailable ISMAEL, OVIDIO A Primary Care Unavailable MURRAY MOONEY Referring Unavailable MURRAY MOONEY Attending Unavailable ISMAEL, OVIDIO A Primary Care Unavailable LORETTA LEON Referring Unavailable LESLYE WINTER Attending Unavailable ISMAEL, OVIDIO A Primary Care Unavailable MOY LESLYE Referring Unavailable ISMAEL, OVIDIO A Primary Care Unavailable LORETTA LEON Referring Unavailable HAYDE WARD Attending Unavailable ISMAEL, OVIDIO A Primary Care Unavailable ISMAEL, OVIDIO A Referring Unavailable ISMAEL, OVIDIO A Primary Care Unavailable ISMAEL, OVIDIO A Referring Unavailable ISMAEL, OVIDIO A Primary Care Unavailable ISMAEL, OVIDIO A Attending Unavailable ISMAEL, OVIDIO A Referring Unavailable ISMAEL, OVIDIO A Primary Care Unavailable ESVIN MARCUS Attending Unavailable ISMAEL, OVIDIO A Primary Care Unavailable GOMEZ, CAIO A Referring Unavailable ISMAEL, OVIDIO A Primary Care Unavailable MURRAY MOONEY Referring Unavailable ISMAEL, OVIDIO A Primary Care Unavailable ISMAEL, OVIDIO A Primary Care Unavailable ISMAEL, OVIDIO A Referring Unavailable ESVIN MARCUS Attending Unavailable Ismael, Ovidio Primary Care Unavailable Tye, Patsy Attending Unavailable Ismael, Ovidio Primary Care Unavailable Tye, Patsy Referring Unavailable Tye, Patsy Attending Unavailable Gomez, Caio Referring Unavailable Ismael, Ovidio Primary Care Unavailable [...] Attending Unavailable Ismael, Ovidio Primary Care Unavailable Ronald De Paz Attending Unavailable Ismael, Ovidio Primary Care Unavailable Ismael, Ovidio Referring Unavailable Tye, Patsy Attending Unavailable Ismael, Ovidio Primary Care Unavailable Tye, Patsy Referring Unavailable Tye, Patsy Attending Unavailable Ismael, Ovidio Primary Care Unavailable Tye, Patsy Referring Unavailable Tye, Patsy Attending Unavailable Ismael, Ovidio Primary Care Unavailable Gomez, Caio Referring Unavailable Gomez, Caio Attending Unavailable Ismael, Ovidio Primary Care Unavailable Tye, Patsy Referring Unavailable Tye, Patsy Attending Unavailable Ismael, Ovidio Primary Care Unavailable Gomez, Caio Attending Unavailable Ismael, Ovidio Primary Care Unavailable Tye, Patsy Referring Unavailable Tye, Patsy Attending Unavailable Ismael, Ovidio Primary Care Unavailable Corrigall, Roopa Referring Unavailable Corrigall, Roopa Attending Unavailable Allergies Allergy Classification Reported Allergen(s) Allergy Type Date of Onset Reaction(s) Facility Anti-Epileptic Agents (1 source) gabapentin Drug Allergy 06-24-2018 Other: See Comments [facility] Work Phone: (20 sources) gabapentin; Translations: [GABAPENTIN] Drug Allergy 06-24-2018 Other: See Comments [facility] Work Phone: Medications Current Medications Medication Drug [...] take 1 tablet by mouth once daily aspirin, enteric coated (ASPIRIN, ENTERIC COATED) 81 mg EC tablet Indications: Multiple myeloma in remission (HCC) , H/O autologous stem cell transplant (HCC) Take 1 tablet by mouth once daily. 100 tablet 3 05/15/2023 Active Comment on above: Take 1 tablet by josephine th once daily. take 1 tablet by josephine th once daily atorvastatin 40 mg oral tablet (20 sources) HMG-CoA Reductase Inhibitor Start: 4 End: 5 take 1 tablet by mouth once daily atorvastatin (LIPITOR) 40 mg tablet Take 1 tablet by mouth once daily. 90 tablet 1 10/02/2024 Active Start: 05-11-2023 take 1 tablet by josephine [...] above: Take 1 tablet by josephine once daily. For cholesterol. take 1 tablet by josephine once daily Take 1 tablet by josephine once daily. azithromycin 250 mg oral tablet [...] on above: Take 1 capsule by mo [facility] once daily. Calcium Carbonate-Vitamin D2 (6 sources) [...] two times a day with meals. Per [facility] 05/27/2024 Active Start: 04-16-2024 End: 05-27-2024 take 0.5 tablet by mouth twice daily at mealtime carvedilol (COREG) 25 mg tablet Take 0.5 tablets by mouth two times a day with meals. Per [facility] 04/16/2024 05/27/2024 Discontinued (Adjust Sig - Block E-Cancel) Start: 04-02-2024 End: 12-20-2024 take 1 tablet by mouth twice daily at mealtime carvedilol (COREG) 12.5 mg tablet Take 1 tablet by mouth two times a day with meals. Per [facility] 08/11/2024 Active Start: 03-06-2024 End: 04-16-2024 take 1 tablet [...] daily. Take 1 tablet by josephine th two times a day. Per [facility] cephalexin 250 mg oral capsule (2 sources) Cephalosporin Antibacterial Start: End: take 1 capsule by mouth four times daily cephALEXin (KEFLEX) 250 mg capsule Indications: Swelling of left hand Take 1 capsule by mouth four times daily for 5 days. 20 capsule 0 04/18/2022 04/23/2022 Active Comment on above: Take 1 capsule by [facility] four times daily for 5 days. cholecalciferol 0.05 mg oral capsule (20 sources) Vitamin D Start: 023 take [...] Comment on above: Take 1 capsule by [facility] once daily. dapagliflozin 10 mg oral tablet (20 sources) Sodium-Glucose Cotransporter 2 Inhibitor Start: 03-31-20 End: 12-12-19 take 1 tablet by mouth once daily, then take 1 tablet by mouth once daily in the morning dapagliflozin propanediol (FARXIGA) 10 mg tablet Take 1 tablet by mouth once daily. Take one daily in the morning 90 tablet 1 12/11/2024 Active Start: 11-03-2021 End: 05-01-2023 take 1 tablet by mouth once daily Dapagliflozin Propanediol 5 mg Tablet Discontinued 5 mg PO DAILY January 05, 2023 12:00am May 01, 2023 11:18am Comment on above: Take 1 tablet by [facility] once daily. Take one daily in the [...] week. Discard Pen After 12 Each 1 04/08/2024 Active Start: 09-27-2023 End: 04-08-2024 dulaglutide [...] (20 sources) Anticholinergic, Corticosteroid, beta2-Adrenergic Agonist Start: 3 End: 5 take 1 puff(s) by mouth once daily [...] 05/01/2023 05/19/2023 Discontinued Start: 01-11-2023 End: 05-02-2023 Olermxoehzx-Pagznftdv-Ifhobv er (Trelegy Ellipta) 100-62.5-25 mcg Blister With Device Discontinued 1 NMA INHALATION DAILY 0 January 11, 2023 12:00am May 02, 2023 9:34am Start: 01-11-2023 End: 05-02-2023 Zmhhxznpigm-Lmgczmvez-Hkdori er (Trelegy Ellipta) 100-62.5-25 mcg Blister With Device Discontinued 1 EACH INHALATION DAILY 0 January 10, 2023 11:00pm May 02, 2023 8:34am Start: 01-11-2023 End: 05-02-2023 Yovqdacilwo-Qnmyvaqxz-Hinnkl er (Trelegy Ellipta) 100-62.5-25 mcg Blister With Device Discontinued 1 EACH INHALATION DAILY 0 January 11, 2023 12:00am May 02, 2023 9:34am Start: 01-11-2023 Fluticasone-Um eclidin-Vilanter (Trelegy Ellipta) 100-62.5-25 mcg Blister With Device Active 1 EACH INHALATION DAILY 0 January 11, 2023 12:00am Start: 01-05-2023 End: 05-02-2023 Sscjhapogyx-Vwicqllal-Quhoxv er 100-62.5-25 mcg Blister With Device Discontinued 1 NMA INHALATION DAILY January 05, 2023 12:00am May 02, 2023 9:32am Start: 01-05-2023 End: 05-02-2023 Lflinyeabaz-Jjwyhbmtt-Jiwssn er Discontinued 1 INH INHALATION DAILY January 04, 2023 11:00pm May 02, 2023 8:32am Start: 01-05-2023 End: 05-02-2023 Mzspiwdowtd-Jgirinxcy-Cebxxj er Discontinued 1 INH INHALATION DAILY January 05, 2023 12:00am May 02, 2023 9:32am Start: 01-05-2023 Fluticasone-Um eclidin-Vilanter Active 1 INH INHALATION DAILY January 05, 2023 12:00am Start: 08-08-2022 End: 05-01-2023 take 1 puff(s) by inhalation once daily uqgifdbgbpv-nfbzcxhcz-himjvbcv (TRELEGY ELLIPTA) 100-62.5-25 mcg inhalation powder Inhale [...] on above: Take 1 capsule by mo [facility] once daily. metFORMIN hydrochloride 1000 mg oral tablet (20 sources) Biguanide Start: take 1 tablet by mouth twice daily at mealtime metFORMIN (GLUCOPHAGE) 1,000 mg tablet Take 1 tablet by mouth two times a day with meals. 180 tablet 1 12/02/2024 Active Start: 10-18-2021 End: 11-30-2024 take 1 tablet by mouth twice daily at mealtime metFORMIN (GLUCOPHAGE) 1,000 mg tablet Take 1 tablet by mouth two times a day with meals. 180 tablet 1 12/02/2024 Active Comment on above: Take 1 tablet by josephine twice daily with meals. Take 1 tablet by josephine two times a day with meals. methylPREDNISolone (1 source) Corticosteroid Start: 2021 End: 2021 methylPREDNISolone (MEDROL, RASHAD,) 4 mg Dose-Pack Follow dosing instructions, take with food. 21 tablet 0 07/04/2022 07/10/2022 Active Comment on above: Follow dosing instru ctions, take with food. Multivitamin preparation (6 sources) Start: 2022 take 1 tablet by mouth once daily Multivitamin Active 1 TABLET PO DAILY January 04, 2023 11:00pm Start: 01-05-2023 take 1 tablet by josephine once daily Multivitamin Active 1 TABLET PO DAILY January 05, 2023 12:00am Multivitamin Tablet (2 sources) Start: 01-05-2023 Multivitamin Tablet Active 1 {tbl} PO DAILY January 05, 2023 12:00am omeprazole 40 mg delayed release oral capsule (20 sources) Proton Pump Inhibitor Start: 08-31-2021 End: 09-03-2024 take 1 capsule by mouth once daily omeprazole (PRILOSEC) 40 mg capsule TAKE ONE CAPSULE BY MOUTH ONCE DAILY ON AN EMPTY STOMACH 90 capsule 1 09/03/2024 Active Comment on above: TAKE ONE CAPSULE BY [...] 05, 2023 12:00am January 11, 2023 8:49pm terbinafine 250 mg oral tablet (20 sources) Allylamine Antifungal Start: 10-07-2021 End: 03-06-2024 take 1 tablet by mouth once daily terbinafine HCl (LAMISIL) 250 mg tablet Indications: Discoloration and thickening of nails both feet Take 1 tablet by mouth once daily. 30 tablet 2 10/07/2021 Active Comment on above: Take 1 tablet by josephine once daily. torsemide 20 mg oral tablet (20 sources) [...] 08, 2024 1:00am December 05, 2024 10:45am [id number] 200 actuat albuterol 0.09 mg/actuat metered dose [...] 9:05am Start: 02-17-2023 take 1 tablet by josephine twice daily apixaban (ELIQUIS) 5 mg tab(s) Take 1 tablet by mouth twice daily. 0 02/17/2023 Active Start: 02-17-2023 End: 05-01-2023 take 2 tablets by mouth twice daily, then take 1 tablet by mouth twice daily Apixaban (Eliquis Dvt-Pe Treat 30d Start) 5 mg (74 tabs) tablets,dose pack Discontinued 5 mg PO TWICE A DAY 74 February 17, 2023 12:00am May 01, 2023 11:14am Take 10 mg twice a day for 1 week, then take 5 mg twice a day Comment on above: Take 1 tablet by josephine twice daily. cefadroxil 500 mg oral capsule (4 sources) Cephalosporin Antibacterial Start: 023 End: 023 take 1 capsule by mouth twice daily cefADROxil (DURICEF) 500 mg capsule Take 1 capsule by mouth twice daily. 20 capsule 0 06/12/2023 07/12/2023 Discontinued (Course of therapy completed) Comment on above: Take 1 capsule by mo [facility] twice daily. celecoxib 200 mg oral capsule (20 sources) Nonsteroidal Anti-inflammatory Drug Start: End: take 1 capsule by mouth twice daily Celecoxib 200 mg capsule Discontinued 200 mg PO TWICE A DAY May 02, 2023 9:31am August 17, 2023 4:25pm Comment on above: Take 1 capsule by [facility] twice daily. docusate sodium 100 mg oral [...] dose nasal spray (20 sources) Corticosteroid Start: take 1 spray(s) by mouth twice daily fluticasone (FLONASE) 50 mcg/actuation nasal spray Use 1 [place] in each nostril twice daily. Rinse mouth after use. 1 Each 1 06/12/2023 Active Start: 09-07-2021 End: 12-24-2022 fluticasone (FLONASE) 50 mcg /actuation nasal spray One spray each nostril before bed. 1 Each 5 09/07/2021 12/24/2022 Discontinued (Discontinued by Patient) Comment on above: One spray each nostr il before bed. Use 1 [place] in each nostril twice daily. Rinse mouth after use. 60 actuat formoterol fumarate 0.005 mg/actuat / mometasone furoate 0.1 mg/actuat metered dose inhaler (20 sources) Corticosteroid, beta2-Adrenergic Agonist Start: End: 3 take 2 puff(s) by inhalation [...] oral tablet (20 sources) Antirheumatic Agent Start: 3 End: 4 take 1 tablet by mouth once daily Leflunomide 10 mg tablet Discontinued 10 mg PO DAILY May 02, 2023 9:32am August 08, 2024 2:06pm Start: 11-05-2019 End: 10-28-2022 take 1 tablet by mouth once daily leflunomide (ARAVA) 10 mg tablet Take 1 tablet by mouth once daily. Prescribed by Dr. Oliva 11/05/2019 10/28/2022 Discontinued Comment on above: Take 1 tablet by [facility] once daily. Prescribed by Dr. Oliva Magnesium [...] on above: Take 2 tablets by mo [facility] twice daily. take 2 tablets by mo [facility] twice a day Take 2 tablets by mo [facility] two times a day. Mometasone-Formoter ol (Dulera) [...] Take 1 tablet by josephine th once daily as needed for pain. 125 [...] by josephine th once daily. 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)] Onset: 2 Chronic Deficiency and other anemia [...] disease, without long-term current use of insulin (HCC)] Onset: 5 Disorders of lipid metabolism (20 [...] immunization; Translations: [Encounter for immunization] 07-12-2023 Episodic Multiple myeloma (20 sources) Multiple myeloma; Translations: [...] [H/O autologous stem cell transplant (HCC)] Onset: 8 Chronic Retinal detachments; defects; vascular occlusion; and retinopathy (1 source) Epiretinal membrane of left eye; Translations: [Puckering of macula, left eye] 01-03-2024 Chronic Rheumatoid arthritis and related disease (20 sources) Inflammatory polyarthropathy; Translations: [Inflammatory polyarthropathy] Onset: 0 03-15-2021 Chronic Spondylosis; intervertebral disc disorders; other back problems (10 sources) Post-surgery back pain; Translations: [Postlaminectomy syndrome, not elsewhere classified] Onset: 5 12-06-2024 Chronic Unclassified (1 source) Obesity, Class I, BMI [...] [Pyogenic arthritis, unspecified] Onset: 05-27-2024 05-27-2024 Episodic Malaise and fatigue (20 sources) Weakness present; Translations: [Weakness] Onset: 12-16-2022 12-16-2022 Episodic Comment on above: INHALER USED Miscellaneous mental health disorders (20 sources) Acute [...] (20 sources) Patient encounter status; Translations: [Other senior living (current) drug therapy] Onset: 09-06-2012 Resolved: 06-13-2018 03-15-2021 Episodic Other aftercare (2 sources) 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; Translations: [Immunodeficiency due to [...] 09-30-2022 Episodic Residual codes; unclassified (20 sources) Bilateral lower limb edema; Translations: [Localized edema] Onset: 06-13-2018 Resolved: 07-17-2018 09-30-2022 Episodic Residual codes; unclassified (20 sources) Tobacco user; Translations: [Tobacco use] Onset: 12-27-2011 Resolved: 10-01-2012 Episodic Residual codes; unclassified (1 source) Localized edema; Translations: [Bilateral leg edema] Onset: 11-03-2022 Episodic Screening and history of mental health and substance abuse codes (20 sources) Ex-smoker; Translations: [Personal history of nicotine dependence] Onset: 03-15-2021 03-15-2021 Episodic Spondylosis; intervertebral disc disorders; other back problems (20 sources) Spinal stenosis of lumbar region; Translations: [Spinal stenosis, lumbar region without neurogenic claudication] Onset: 11-13-2006 03-15-2021 Episodic Results Test Name Value Interpretation Reference Range Facility Echo Complete 02-26-2025 Echo Complete [facility] [address] [place] [address] Echo Complete 02/26/25 0733 MR#: [id number] Acct: [id number] Name: RONNIE YARBROUGH Rep #: [id number] : 1950 74 From: Patsy Gamble MD Attending Dr: Dr. Patsy Gamble MD Status: REG CLI Ordering Dr: Patsy Gamble MD Date: 02/26/25 Location: [facility] Sex: M C Admitted: Reason For Study Reason For Study: Pre-op clearance Procedure This was a 2D Doppler, Color Flow transthoracic echocardiogram. Exam performed in department. Left Ventricle Normal LV size. Moderate concentric left ventricular hypertrophy. The LV systolic function is normal. EF is 70 %. Stage 1 diastolic dysfunction. Right Ventricle Normal right ventricle. Atria There is moderate biatrial dilatation. Mitral Valve Trivial mitral valve insufficiency. Tricuspid Valve Trivial tricuspid valve insufficiency. Right ventricular systolic pressure estimated to be 40 mmHg. Aortic Valve Aortic sclerosis, no stenosis. Pulmonic Valve The pulmonic valve is not well visualized. Great Vessels The aortic root is not well visualized. Pericardium/Pleural No pericardial effusion. MMode/2D Measurements Calculations LVIDd: 3.9 cm IVSd: 1.2 cm LVOT diam: 2.1 cm LVIDs: 2.5 cm LVPWd: 0.96 cm LVOT area: 3.4 cm2 RVDd: 4.0 cm FS: 34.6 % Ao root diam: 3.2 cm LAV(MOD-bp): 42.4 ml LVAd ap4: 24.8 cm2 LA dimension: 4.5 cm LAV(MOD-bp) Indexed: 20.0 ml/m2 LVLd ap4: 8.9 cm LAV(MOD-sp2): 45.6 ml EDV(MOD-sp4): 58.2 ml LAV(MOD-sp4): 38.7 ml EDV(sp4-el): 58.7 ml LVAs ap4: 13.0 cm2 LVLs ap4: 7.6 cm ESV(MOD-sp4): 19.3 ml ESV(sp4-el): 19.0 ml EF(MOD-sp4): 66.9 % EF(sp4-el): 67.7 % LVAd ap2: 26.5 cm2 SV(MOD-sp4): 38.9 ml SV(MOD-sp2): 45.9 ml LVLd ap2: 8.9 cm SI(MOD-sp4): 18.4 ml/m2 SI(MOD-sp2): 21.7 ml/m2 EDV(MOD-sp2): 66.2 ml EDV(sp2-el): 66.5 ml LVAs ap2: 12.9 cm2 LVLs ap2: 7.5 cm ESV(MOD-sp2): 20.3 ml ESV(sp2-el): 18.9 ml EF(MOD-sp2): 69.3 % SV(sp4-el): 39.8 ml LA dimension(2D): 4.0 cm LA A4 area: 16.0 cm2 RA A4 area: 18.6 cm2 TAPSE: 1.9 cm Time Measurements MV dec time: 0.39 sec Doppler Measurements Calculations MV E max mickey: 51.7 cm/sec Lat Peak E' Mickey: 6.7 cm/sec Med Peak E' Mickey: 5.9 cm/sec MV A max mickey: 81.5 cm/sec E/E' lat: 7.7 E/E' med: 8.8 MV E/A: 0.63 Ao V2 max: 175.5 cm/sec LV V1 max: 141.1 cm/sec MV dec slope: 134.2 cm/sec2 Ao max P.3 mmHg LV V1 max P.0 mmHg Ao V2 mean: 131.8 cm/sec LV V1 mean P.6 mmHg Ao mean P.5 mmHg LV V1 mean: 100.4 cm/sec Ao V2 VTI: 32.0 cm LV V1 VTI: 27.2 cm AV (velocity ratio): 0.85 ALLEY(I,D): 2.9 cm2 ALLEY(V,D): 2.8 cm2 SV(LVOT): 93.8 ml TR max mickey: 296.2 cm/sec TR max P.1 mmHg ECHO/Echo Complete Interpretation Summary Moderate concentric left ventricular hypertrophy. The LV systolic function is normal. EF is 70 %. Stage 1 diastolic dysfunction. There is moderate biatrial dilatation. Right ventricular systolic pressure estimated to be 40 mmHg. Aortic sclerosis, no stenosis. Ordering Physician: Patsy Gamble Referring Physician: Ovidio Vincent Performed By: Ellyn Zuniga RDCS 02/26/25954 Date Patsy Gamble MD CC: Dr. Patsy Gamble MD; Dr. Ovidio Vincent MD Date Dictated: 02/26/25732 Date Transcribed: 02/26/25954 Ems Driver: Signed [facility] /PAT.[facility] Medical Records Department [address] [place] [id number] PAT - Anesthesia 02/26/25 1157 MR#: [id number] Acct: [id number] Name: RONNIE YARBROUGH Rep #: [id number] : 1950 74 From: Angel Dong MD PCP: Dr. Ovidio Vincent MD Status:PRE [facility] Y Race: C Location: [facility] Pre-Assessment Diagnosis/Proposed Procedure Planned Operative Procedure(s): Open thoracic laminectomy, spinal cord stimulator placement Anesthesia History Anesthesia History - intraoperative neuro tech: Anesthesia History - intraoperative neuro tech Hx Hospitalization Yes: INFECTION IN [place]/ 02/04/25 [...] take am of surgery PONV PONV - intraoperative neuro tech: PONV - intraoperative neuro tech Female No 02/04/25 09:31 HX of Motion [...] 12/05/24 10:30 Respiratory Assessment Respiratory Assessment - intraoperative neuro tech: Respiratory Tract Infection Hx - intraoperative neuro tech Hx Respiratory Tract Infection No 02/04/25 09:31 STOP Sleep Apnea STOP Sleep Apnea - intraoperative neuro tech: STOP Sleep Apnea - intraoperative neuro tech Hx Hypertension Yes: CONTROLLED ON MED 02/04/25 [...] 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 Use History - intraoperative neuro tech: Tobacco Use History - intraoperative neuro tech Tobacco Use Smoking Status Former smoker 02/04/25 09:31 Hx Tobacco Use No 02/04/25 09:31 Years Smoking Packs Smoked per Day Smoking Cessation Date was Yes - quit smoking within 15 02/04/25 09:31 within the last 15 years years Hx Smoking Cessation Date Hx Smoking Cessation Counseling Hematologic Medial History Hematologic Hx - intraoperative neuro tech: 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 (more content not included)... Normal [facility] Stress Reporton 02-26-2025 Stress Report [facility] [address] [place] [address] MR#: [id number] Acct: [id number] Name: RONNIE YARBROUGH Rep #: [id number] : 1950 74 From: Patsy Gamble MD Primary Care: Dr. Ovidio Vincent MD Status: REG CLI Referring Dr: Patsy Gamble MD Sex: M C Stress Test Report Date: 02/26/2025 Procedure: Pharmacologic stress nuclear imaging study Indications: Preoperative workup Consent: Per the patient Procedure: The patient underwent pharmacologic (Regadenoson 0.4mg ) evaluation with a peak heart rate of 77 beats per minute (52%predicted maximal heart rate) and a peak blood pressure of 118/64 mmHg. The baseline ECG demonstrated sinus rhythm with occasional PVC. Nonspecific ST changes. The peak pharmacologic ECG did not show any ischemic changes. Occasional PVC pretest.. There was no complaint of chest discomfort during pharmacologic infusion or recovery. The patient was injected with 13.8 millicuries of technetium 99m Cardiolite and subsequently rest SPECT Cardiolite nuclear imaging was obtained in the horizontal long, vertical long, and short axis views. The patient underwent pharmacologic (Regadenoson) evaluation. The patient was injected with 39.1 millicuries of technetium 99m Cardiolite and subsequently stress SPECT Cardiolite nuclear imaging was obtained in the horizontal long, vertical long, and short axis views. A gated Cardiolite study at peak stress was obtained. The examination was stopped secondary to completion of protocol. Rest and stress SPECT Cardiolite nuclear imaging status post realignment, normalization, and attenuation correction demonstrate no fixed or reversible perfusion defects. There is end systolic thickening and brightening. The gated Cardiolite study demonstrates myocardial thickening and inward wall motion. The reported LVEF is 76%. Impression: 1. Pharmacologic (Regadenoson) evaluation 2. Peak pharmacologic ECG with no diagnostic ischemic changes. 3. Occasional PVC noted pretest. 5. Rest and stress SPECT Cardiolite nuclear imaging demonstrate relative uniform tracer uptake and myocardial perfusion appearing within normal limits. 6. The gated Cardiolite study reports an LVEF of 76%. This note was generated with KeepTruckination software. It may contain incorrect words, spelling, and punctuation that were not noted in checking the note before signing. 02/26/25 1050 Date Patsy Gamble MD CC: Dr. Patsy Gamble MD; Dr. Ovidio Vincent MD Date Dictated: 02/26/251047 Date Transcribed: 02/26/251047 Ems Driver: JELANI Signed Normal [facility] Orthopedic Visit Reporton Orthopedic Visit Report [facility] [address] [place] [address] OFFICE VISIT Date of Service: 02/21/25 MR#: [id number] Acct: [id number] Name: RONNIE YARBROUGH Rep #: [id number] : 1950 Provider: Dr. Caio Gomez MD Age/Sex: 74/M Location[place] [facility] [place] Status: Signed Intake Vital Signs 12/05/24 10:30 [...] of diabet (more content not included)... Normal [facility] Hepatitis A AB, Totalon HEPATITIS A,TOT Negative Normal Negative [facility] Comment on above: Result Comment: Comm ent: The HAV total antibody assay detects both IgG and IgM but does not differentiate between them. A negative result suggests susceptibility to infection. A positive result could be due to vaccination, previously resolved infection or active infection. Testing for HAV IgM should be performed if active HAV infection is suspected. [facility] offers profiles that will automatically reflex positive HAV total antibody results to IgM (e.g., panel #[id number] HAV Antibody w/ Rfx). Performed at: [address] [id number] Structures Assembler: Zackary Mendoza PhD, Phone: [phone] Performed By: #### L 2232.7340, L539.5562, L100.0100, L3890.6006, L500.2500, L3890.6301, M100.651, L3100.0300 ####[facility] [address] [place], [address] MRSA/SAID NASAL SCREENon MRSA+SAID SCRN Reason for Exam: Adenike dallas MRSA MRSA Negative S. AUREUS S. aureus Negative Normal [facility] Comment on above: Performed By: #### L 3890.6202, L501.9985, L100.0100, L3890.6006, L500.2500, L3890.6301, M100.651, L3100.0300 ####[facility] [address] [facility] [address] [address] [place], [address] Basic Metabolic Profile (BMP )on 02-17-2025 BUN/CRE 18.8 RATIO Normal 10-20 [facility] Comment on above: Performed By: #### L 3890.6202, L501.9985, L100.0100, L3890.6006, L500.2500, L3890.6301, M100.651, L3100.0300 ####[facility] [address] [place], [place], [phone] Calcium [Mass/Vol] 9.1 mg/dL Normal 7.6-11.0 [facility] Comment on above: Performed By: #### L 3890.6202, L501.9985, L100.0100, L3890.6006, L500.2500, L3890.6301, M100.651, L3100.0300 ####[facility] [address] [place], [address] Chloride [Moles/Vol] 102 mmol/L Normal 98-108 [facility] Comment on above: Performed By: #### L 3890.6202, L501.9985, L100.0100, L3890.6006, L500.2500, L3890.6301, M100.651, L3100.0300 ####[facility] [address] [place], [place], [phone] CO2 [Moles/Vol] 21.2 mmol/L Normal 21.0-32.0 [facility] Comment on above: Performed By: #### L 3890.6202, L501.9985, L100.0100, L3890.6006, L500.2500, L3890.6301, M100.651, L3100.0300 ####[facility] [address] [place], [place], [phone] Creatinine [Mass/Vol] 1.17 mg/dL Normal 0.70-1.20 [facility] Comment on above: Performed By: #### L 3890.6202, L501.9985, L100.0100, L3890.6006, L500.2500, L3890.6301, M100.651, L3100.0300 ####[facility] [address] [place], [address] GAP 14 Normal 5-15 [facility] Comment on above: Performed By: #### L 3890.6202, L501.9985, L100.0100, L3890.6006, L500.2500, L3890.6301, M100.651, L3100.0300 ####[facility] [address] [place], [place], [phone] GFR/1.73 sq M.predicted among non-blacks MDRD (S/P/Bld) [Vol rate/Area] 66 mL/min/{1.73_m2} Normal >60 [facility] Comment on above: Result Comment: mL/m in/1.73m2 CKD-EPI Creatinine Equation (2020) Performed By: #### L 3890.6202, L501.9985, L100.0100, L3890.6006, L500.2500, L3890.6301, M100.651, L3100.0300 ####[facility] [address] [place], [place], [phone] Glucose [Mass/Vol] 129 mg/dL High 70-99 [facility] Comment on above: Performed By: #### L 3890.6202, L501.9985, L100.0100, L3890.6006, L500.2500, L3890.6301, M100.651, L3100.0300 ####[facility] [address] [place], [address] Potassium [Moles/Vol] 4.4 mmol/L Normal 3.3-5.1 [facility] Comment on above: Performed By: #### L 3890.6202, L501.9985, L100.0100, L3890.6006, L500.2500, L3890.6301, M100.651, L3100.0300 ####[facility] [address] [place], [address] Sodium [Moles/Vol] 137 mmol/L Normal 133-145 [facility] Comment on above: Performed By: #### L 3890.6202, L501.9985, L100.0100, L3890.6006, L500.2500, L3890.6301, M100.651, L3100.0300 ####[facility] [address] [place], [address] Urea nitrogen [Mass/Vol] 22 mg/dL High 4-19 [facility] Comment on above: Performed By: #### L 3890.6202, L501.9985, L100.0100, L3890.6006, L500.2500, L3890.6301, M100.651, L3100.0300 ####[facility] [address] [place], [address] CBC W/Diff, Automatedon 06-0 2-2024 Absolute Lymph 0.96 X10 3/uL Normal 0.83-4.51 [facility] Comment on above: Performed By: #### L 3890.6202, L501.9985, L100.0100, L3890.6006, L500.2500, L3890.6301, M100.651, L3100.0300 ####[facility] [address] [place], [address] Absolute Neut 4.4 X10 3/uL Normal 2.0-7.7 [facility] Comment on above: Performed By: #### L 3890.6202, L501.9985, L100.0100, L3890.6006, L500.2500, L3890.6301, M100.651, L3100.0300 ####[facility] [address] [place], [address] Basophils/100 WBC (Bld) 0.3 % Normal 0-1 [facility] Comment on above: Performed By: #### L 3890.6202, L501.9985, L100.0100, L3890.6006, L500.2500, L3890.6301, M100.651, L3100.0300 ####[facility] [address] [place], [address] Eosinophils/100 WBC (Bld) 0.5 % Normal 0-5 [facility] Comment on above: Performed By: #### L 3890.6202, L501.9985, L100.0100, L3890.6006, L500.2500, L3890.6301, M100.651, L3100.0300 ####[facility] [address] [place], [address] Erythrocyte distribution width (RBC) [Ratio] 15.5 % High 11.6-14.6 [facility] Comment on above: Performed By: #### L 3890.6202, L501.9985, L100.0100, L3890.6006, L500.2500, L3890.6301, M100.651, L3100.0300 ####[facility] [address] [place], [address] Hematocrit (Bld) [Volume fraction] 44.3 % Normal 40-54 [facility] Comment on above: Performed By: #### L 3890.6202, L501.9985, L100.0100, L3890.6006, L500.2500, L3890.6301, M100.651, L3100.0300 ####[facility] [address] [place], [address] Hemoglobin (Bld) [Mass/Vol] 14.4 g/dL Normal 13.0-16.5 [facility] Comment on above: Performed By: #### L 3890.6202, L501.9985, L100.0100, L3890.6006, L500.2500, L3890.6301, M100.651, L3100.0300 ####[facility] [address] [place], [address] IG% 0.300 Normal 0.0-0.9 [facility] Comment on above: Result Comment: IG% - Immature Granulocytes (promyelocytes, myelocytes and metamyelocytes) > 1% indicates that a LEFT SHIFT is Present. Performed By: #### L 3890.6202, L501.9985, L100.0100, L3890.6006, L500.2500, L3890.6301, M100.651, L3100.0300 ####[facility] [address] [place], [address] Lymphocytes/100 WBC (Bld) 16.7 % Low 19-41 [facility] Comment on above: Performed By: #### L 3890.6202, L501.9985, L100.0100, L3890.6006, L500.2500, L3890.6301, M100.651, L3100.0300 ####[facility] [address] [place], [address] MCH (RBC) [Entitic mass] 28.2 pg Normal 27.0-32.0 [facility] Comment on above: Performed By: #### L 3890.6202, L501.9985, L100.0100, L3890.6006, L500.2500, L3890.6301, M100.651, L3100.0300 ####[facility] [address] [place], [address] MCHC (RBC) [Mass/Vol] 32.5 g/dL Normal 32-36 [facility] Comment on above: Performed By: #### L 3890.6202, L501.9985, L100.0100, L3890.6006, L500.2500, L3890.6301, M100.651, L3100.0300 ####[facility] [address] [place], [address] MCV (RBC) [Entitic vol] 86.7 fL Normal 80-94 [facility] Comment on above: Performed By: #### L 3890.6202, L501.9985, L100.0100, L3890.6006, L500.2500, L3890.6301, M100.651, L3100.0300 ####[facility] [address] [place], [address] Monocytes/100 WBC (Bld) 6.3 % Normal 0-10 [facility] Comment on above: Performed By: #### L 3890.6202, L501.9985, L100.0100, L3890.6006, L500.2500, L3890.6301, M100.651, L3100.0300 ####[facility] [address] [place], [address] Neutrophils/100 WBC (Bld) 75.9 % High 47-70 [facility] Comment on above: Performed By: #### L 3890.6202, L501.9985, L100.0100, L3890.6006, L500.2500, L3890.6301, M100.651, L3100.0300 ####[facility] [address] [place], [address] Nucleated RBC (Bld) [#/Vol] 0 10*3/uL Normal 0-5 [facility] Comment on above: Performed By: #### L 3890.6202, L501.9985, L100.0100, L3890.6006, L500.2500, L3890.6301, M100.651, L3100.0300 ####[facility] [address] [place], [address] Platelet mean volume (Bld) [Entitic vol] 10.1 fL Normal 6.2-12.0 [facility] Comment on above: Performed By: #### L 3890.6202, L501.9985, L100.0100, L3890.6006, L500.2500, L3890.6301, M100.651, L3100.0300 ####[facility] [address] [place], [address] Platelets (Bld) [#/Vol] 168 10*3/uL Normal 150-450 [facility] Comment on above: Performed By: #### L 3890.6202, L501.9985, L100.0100, L3890.6006, L500.2500, L3890.6301, M100.651, L3100.0300 ####[facility] [address] [place], [address] RBC (Bld) [#/Vol] 5.11 10*6/uL Normal 4.6-6.2 [facility] Comment on above: Performed By: #### L 3890.6202, L501.9985, L100.0100, L3890.6006, L500.2500, L3890.6301, M100.651, L3100.0300 ####[facility] [address] [place], [address] RDW SD 48.8 fl High 35.1-43.9 [facility] Comment on above: Performed By: #### L 3890.6202, L501.9985, L100.0100, L3890.6006, L500.2500, L3890.6301, M100.651, L3100.0300 ####[facility] [address] [place], [address] WBC (Bld) [#/Vol] 5.7 10*3/uL Normal 4.4-11.0 [facility] Comment on above: Performed By: #### L 3890.6202, L501.9985, L100.0100, L3890.6006, L500.2500, L3890.6301, M100.651, L3100.0300 ####[facility] [address] [place], [address] Cardiology Visit Reporton Cardiology Visit Report [facility] [address] [place], [place] [address] OFFICE VISIT Date of Service: 02/17/25 MR#: [id number] Acct: [id number] Name: RONNIE YARBROUGH Rep #: [id number] : 1950 Provider: Dr. 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 Normal [facility] HIVon 02-17-2025 HIV Non-Reactive Normal Nonreactive [facility] Comment on above: Result Comment: Non- Reactive Reactive Repeatedly reactive samples must be confirmed according to CDC recommended confirmatory algorithms. The subresults for either HIVAG or AHIV can be used as an aid in the selection of the confirmation algorithm for reactive samples. Send out specimens with Reactive results to [facility] for confirmation. Order the HIV antibody detection and differentiation: lc#[id number] Performed By: #### L 3890.6202, L501.9985, L100.0100, L3890.6006, L500.2500, L3890.6301, M100.651, L3100.0300 ####[facility] [address] [place], [place], [phone]) Hemoglobin A1con 02-17-2025 HbA1c (Bld) [Mass fraction] 6.7 % High <=5.6 [facility] Comment on above: Result Comment: Norm al < 5.7 % Prediabetic 5.7 - 6.4 % Diabetic >or= 6.5 % Please note range changes. Performed By: #### L 3890.6202, L501.9985, L100.0100, L3890.6006, L500.2500, L3890.6301, M100.651, L3100.0300 ####[facility] [address] [place], [address] Hepatitis B Surface Antibody on 02-17-2025 HEP B Surf Ab Non-Reactive Normal [facility] Comment on above: Result Comment: <8.5 mIU/mL: Non-Reactive 8.5<= x <11.5 mIU/mL: Indeterminate >=11.5 mIU/mL: Reactive Non Reactive: Inconsistent with immunity less than <10 mIU/mL Reactive: Consistent with immunity greater than or equal to 10 mIU/mL Performed By: #### L 3890.6202, L501.9985, L100.0100, L3890.6006, L500.2500, L3890.6301, M100.651, L3100.0300 ####[facility] [address] [place], [address](301) Hepatitis C Antibodyon 02-17 Hepatitis C Ab Non-Reactive Normal Nonreactive [facility] Comment on above: Result Comment: Reac tive: Presumptive evidence of antibodies to HCV. Follow CDC recommendations for supplemental testing. Non-Reactive: Antibodies to HCV were not detected; does not exclude the possibility of exposure to HCV Reactive Results are presumptive evidence of antibodies to HCV. Follow CDC recommendations for supplemental testing. Order confirmation testing: HCV Quant by PCR testing - HCVPCR #[id number] Non Reactive: < 0.8 Equivocal: >/= 0.8 to < 1.0 Reactive: >/= 1.0 The [facility] requires that a reactive/equivocal HCV antibody result be sent out for confirmation. HCV Quant by PCR testing. Performed By: #### L 3890.6202, L501.9985, L100.0100, L3890.6006, L500.2500, L3890.6301, M100.651, L3100.0300 ####[facility] [address] [place], [address] MR/Nilda 02-17-2025 MR/PAT.[facility] Medical Records Department [address] [place] [address] PAT - Anesthesia 02/17/25 1224 MR#: [id number] Acct: [id number] Name: RONNIE YARBROUGH Rep #: [id number] : 1950 74 From: Avila Do MD PCP: Dr. Ovidio Vincent MD Status:PRE [facility] [place] [facility] Y Race: C Location: [facility] [place] Pre-Assessment Diagnosis/Proposed Procedure Planned Operative Procedure(s): Open thoracic laminectomy, spinal cord stimulator placement Anesthesia History Anesthesia History - intraoperative neuro tech: Anesthesia History - intraoperative neuro tech Hx Hospitalization Yes: INFECTION IN [place]/ 02/04/25 [...] take am of surgery PONV PONV - intraoperative neuro tech: PONV - intraoperative neuro tech Female No 02/04/25 09:31 HX of Motion [...] 12/05/24 10:30 Respiratory Assessment Respiratory Assessment - intraoperative neuro tech: Respiratory Tract Infection Hx - intraoperative neuro tech Hx Respiratory Tract Infection No 02/04/25 09:31 STOP Sleep Apnea STOP Sleep Apnea - intraoperative neuro tech: STOP Sleep Apnea - intraoperative neuro tech Hx Hypertension Yes: CONTROLLED ON MED 02/04/25 [...] 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 Use History - intraoperative neuro tech: Tobacco Use History - intraoperative neuro tech Tobacco Use Smoking Status Former smoker 02/04/25 09:31 Hx Tobacco Use No 02/04/25 09:31 Years Smoking Packs Smoked per Day Smoking Cessation Date was Yes - quit smoking within 15 02/04/25 09:31 within the last 15 years years Hx Smoking Cessation Date Hx Smoking Cessation Counseling Hematologic Medial History Hematologic Hx - intraoperative neuro tech: 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 Normal [facility] Magnesiumon 02-17-2025 Magnesium [Mass/Vol] 1.8 mg/dL Normal 1.5-2.2 [facility] Comment on above: Performed By: #### L 501.5200 ####[facility] [address] [place], [address] Orthopedic Visit Reporton Orthopedic Visit Report [facility] [address] [place], [place] [address] OFFICE VISIT Date of Service: 01/02/25 MR#: [id number] Acct: [id number] Name: RONNIE YARBROUGH Rep #: [id number] : 1950 Provider: Dr. Caio Gomez MD Age/Sex: 74/M Location: [facility] [place] Status: Signed Intake Vital Signs 12/05/24 10:30 [...] tablet 5 mg PO TID PRN pain 12/05/24 04/04/11 History carvedilol 12.5 mg tablet 12.5 mg [...] by Rhea FLANNERY, acting as scribe. RONNIE YARBROUGH is a [...] his lower back that were done at [facility]. His last back surgery was about 3 years ago and he had an MRI after that surgery that showed compression and a fracture. He is unable to recall the exact dates and what surgerie (more content not included)... Normal [facility] MR Lumbar spine WO contrasto n 12-27-2024 * * *Final Report* * * DATE OF EXAM: Dec 27 2024 11:20AM [facility] 0303 - MRI LUMBAR SPINE WO IVCON / PROCEDURE REASON: lumbar /thoracic wo * * * * Physician Interpretation * * * * EXAMINATION: MRI THORACIC SPINE WO IVCON, MRI LUMBAR SPINE WO IVCON CLINICAL HISTORY: MID AND LOW BACK PAIN'; SPONDYLOSIS WITH MYELOPATHY (accession [id number]), TECHNIQUE: Routine lumbosacral and thoracic spine MR [...] content not included)... DIVISION OF RADIOLOGY Provider, [facility] - 12/27/2024 * * *Final Report* * * DATE OF EXAM: Dec 27 2024 11:20AM [facility] 0303 - MRI LUMBAR SPINE WO IVCON / PROCEDURE REASON: lumbar /thoracic wo * * * * Physician Interpretation * * * * EXAMINATION: MRI THORACIC SPINE WO IVCON, MRI LUMBAR SPINE WO IVCON CLINICAL HISTORY: MID AND LOW BACK PAIN'; SPONDYLOSIS WITH MYELOPATHY (accession [id number]), TECHNIQUE: Routine lumbosacral and thoracic spine MR [...] neural jose martin (more content not included)... [facility] MR Thoracic spine WO contras ton 12-27-2024 * * *Final Report* * * DATE OF EXAM: Dec 27 2024 11:20AM [facility] 0325 - MRI THORACIC SPINE WO IVCON / PROCEDURE REASON: lumbar /thoracic wo * * * * Physician Interpretation * * * * EXAMINATION: MRI THORACIC SPINE WO IVCON, MRI LUMBAR SPINE WO IVCON CLINICAL HISTORY: MID AND LOW BACK PAIN'; SPONDYLOSIS WITH MYELOPATHY (accession [id number]), TECHNIQUE: Routine lumbosacral and thoracic spine MR [...] content not included)... DIVISION OF RADIOLOGY Provider, [facility] - 12/27/2024 * * *Final Report* * * DATE OF EXAM: Dec 27 2024 11:20AM [facility] 0325 - MRI THORACIC SPINE WO IVCON / PROCEDURE REASON: lumbar /thoracic wo * * * * Physician Interpretation * * * * EXAMINATION: MRI THORACIC SPINE WO IVCON, MRI LUMBAR SPINE WO IVCON CLINICAL HISTORY: MID AND LOW BACK PAIN'; SPONDYLOSIS WITH MYELOPATHY (accession [id number]), TECHNIQUE: Routine lumbosacral and thoracic spine MR [...] RIGHT neural for (more content not included)... [facility] No Panel Informationon 12-27 IMPRESSION: THORACIC spine: [...] and assume there are 5 lumbar-type vertebrae. Ems Driver: ROBERTA Transcribe Date/Time: Dec 27 2024 12:03P Dictated by : ANNABELLE TAI MD This examination was interpreted and the report reviewed and electronically signed by: ANNABELLE TAI MD on Dec 27 2024 12:20PM [facility] DIVISION OF RADIOLOGY Radiology Study observation (narrative) [facility] No Panel InformationOrdered By: Ccf Provider on 12-27-2024 [facility] L/S Spine Min 4 Viewson 11-17 L/S Spine Min 4 Views [facility] [address] [place], [place] [address] L/S Spine Min 4 Views MR#: [id number] Acct: [id number] Name: RONNIE YARBROUGH Rep #: [id number] : 1950 M 74 From: Leno Yost MD PCP: Dr. Ovidio Vincent MD Status: DEP AMB Study: L/S Spine Min 4 Views Date of Exam: 12/05/24 Exam# [id number] Ordering Dr: Caio Gomez MD PROCEDURE: L/S SPINE MIN 4 VIEWS (RADSPLS), 12/05/2024 REASON FOR EXAM: ONGOING PAIN TECHNIQUE: [...] at the L5 level extend less than fdc through the AP dimension of the vertebral [...] and additional description as above. Reading Location: [id number] CC: Dr. Caio Gomez MD; Dr. Ovidio Vincent MD Ems Driver: Signed Normal [facility] Orthopedic Visit Reporton Orthopedic Visit Report [facility] [address] [place] [address] OFFICE VISIT Date of Service: 12/05/24 MR#: [id number] Acct: [id number] Name: RONNIE YARBROUGH Rep #: [id number] : 1950 Provider: Dr. Caio Gomez MD Age/Sex: 74/M Location: [facility] Status: Signed Intake Vital Signs 08/08/24 08:43 [...] his lower back that were done at [facility]. His last back surgery was about 3 years ago and he had an MRI after that surgery that showed compression and a fracture. He is unable to recall the exact dates and what surgeries wer (more content not included)... [facility] (BLANKA) RONNIE YARBROUGH I ([id number]) 1950 M Date Time Provider Department 11/12/24 [...] BLOOD COUNT AND DIFFERENTIAL [SQCBCDIF] Order #: [id number] STANDING KAPPA/PHAN,FREE,SER [SQKLFRS] Order #: [id number] STANDING BASIC METABOLIC PANEL [SQBMP] Order #: [id number] STANDING PROTEIN ELECTROPHORESIS SERUM W/INTERP [SQSEPG] Order #: [id number] STANDING MONOCLONAL PROTEIN, SERUM (BLOOD) [SQSERMPA] Order #: [id number] STANDING Prescriptions as of 11/12/2024 - atorvastatin [...] two times a day with meals. Per [facility] - dapagliflozin propanediol (FARXIGA) 10 [...] mouth two times a day. . - zqwigeelnea-fjgrabjak-mnfdvc er (TRELEGY ELLIPTA) 100-62.5-25 mcg inhalation powder [...] of breat (more content not included)... Normal [facility] Basic metabolic 2000 panelon 11-04-2024 Anion gap [Moles/Vol] 8 mmol/L Normal 8- [facility] Comment on above: Order Comment: Speci men Type: BLOOD SPECIMENOrdering Facility: [facility] Address: [address] [place], [place] [address] [id number] Performed By: #### 2 4321-2 ####[facility] MILLTOWNCLIA [id number] [place] [address] [place] Calcium [Mass/Vol] 10.2 mg/dL Normal 8.5-10.2 [facility] Comment on above: Order Comment: Speci men Type: BLOOD SPECIMENOrdering Facility: [facility] Address: [address] [place] [address] Performed By: #### 2 4321-2 ####[facility] MILLTOWNCLIA [id number] [place] [address] [place] Chloride [Moles/Vol] 100 mmol/L Normal 98-107 [facility] Comment on above: Order Comment: Speci men Type: BLOOD SPECIMENOrdering Facility: [facility] Address: [address] [place] [address] Performed By: #### 2 4321-2 ####[facility] CENTERLIA [id number] [place] [address] [place] CO2 [Moles/Vol] 30 mmol/L Normal 22-30 [facility] Comment on above: Order Comment: Speci men Type: BLOOD SPECIMENOrdering Facility: [facility] Address: [address] [place] [address] Performed By: #### 2 4321-2 ####[facility] CENTERLIA [id number] [place] [address] [place] Creatinine [Mass/Vol] 0.90 mg/dL Normal 0.73-1.22 [facility] Comment on above: Order Comment: Speci men Type: BLOOD SPECIMENOrdering Facility: [facility] Address: [address] [place] [address] Performed By: #### 2 4321-2 ####[facility] INSTITUTENCLIA [id number] [place] [address] [place] Creatinine and Glomerular filtration rate.predicted panel (S/P/Bld) 90 mL/min/1.73m??? Normal >=60 [facility] Comment on above: Order Comment: Jessi chen Type: BLOOD SPECIMENOrdering Facility: [facility] Address: [address] [place] [address] Result Comment: Aleyda mated Glomerular Filtration Rate [...] actual GFR. Performed By: #### 2 4321-2 ####[facility] [id number] [place] [address] [place] Glucose [Mass/Vol] 132 mg/dL High 74-99 [facility] Comment on above: Order Comment: Jessi chen Type: BLOOD SPECIMENOrdering Facility: [facility] Address: [address] [place] [address] Result Comment: The [place] Diabetes Association (ADA) provides guidance for cutoff [...] Standards of Medical Care in Diabetes 2016, [place] [employer]. Diabetes Care. 2016.39(Suppl 1). Performed By: #### 2 4321-2 ####[facility] [id number] [place] [address] [place] Potassium [Moles/Vol] 4.5 mmol/L Normal 3.7-5.1 [facility] Comment on above: Order Comment: Speci men Type: BLOOD SPECIMENOrdering Facility: [facility] Address: [address] [place] [address] Performed By: #### 2 4321-2 ####[facility] SABIWAGNER [id number] [place] [address] [place] Sodium [Moles/Vol] 138 mmol/L Normal 136-144 [facility] Comment on above: Order Comment: Speci men Type: BLOOD SPECIMENOrdering Facility: [facility] Address: [address] [place] [address] Performed By: #### 2 4321-2 ####[facility] RESEARCH INSTITUTEJASWANTRome [id number] [place] [address] [place] Urea nitrogen [Mass/Vol] 20 mg/dL Normal 9-24 [facility] Comment on above: Order Comment: Speci men Type: BLOOD SPECIMENOrdering Facility: [facility] Address: [address] [place] [address] Performed By: #### 2 4321-2 ####[facility] CENTERSAMA [id number] [place] [address] [place] CBC W Auto Differential pane l (Bld)on 11-04-2024 Basophils (Bld) [#/Vol] 10*3/uL Normal <0.11 [facility] Comment on above: Order Comment: Speci men Type: BLOOD SPECIMENOrdering Facility: [facility] Address: [address] [place] [address] Performed By: #### 5 7021-8 ####[facility] RESEARCH INSTITUTEJEANA [id number] [place] [address] [place] Basophils/100 WBC (Bld) 0.2 % Normal [facility] Comment on above: Order Comment: Speci men Type: BLOOD SPECIMENOrdering Facility: [facility] Address: [address] [place] [address] Performed By: #### 5 7021-8 ####[facility] RESEARCH INSTITUTENCLIA [id number] [place] [address] [place] Differential cell count method Nom (Bld) Auto Normal [facility] Comment on above: Order Comment: Speci men Type: BLOOD SPECIMENOrdering Facility: [facility] Address: [address] [place] [address] Performed By: #### 5 7021-8 ####[facility] INSTITUTEJASWANTBEAR RIVER VALLEY [facility] [id number] [place] [address] [place] Eosinophils (Bld) [#/Vol] 0.03 10*3/uL Normal <0.46 [facility] Comment on above: Order Comment: Speci men Type: BLOOD SPECIMENOrdering Facility: [facility] Address: [address] [place] [address] Performed By: #### 5 7021-8 ####[facility] [id number] [place] [address] [place] Eosinophils/100 WBC (Bld) 0.5 % Normal [facility] Comment on above: Order Comment: Speci men Type: BLOOD SPECIMENOrdering Facility: [facility] Address: [address] [place] [address] Performed By: #### 5 7021-8 ####[facility] INSTITUTENCBEAR [facility] [id number] [place] [address] [place] Erythrocyte distribution width (RBC) [Ratio] 16.4 % High 11.5-15.0 [facility] Comment on above: Order Comment: Speci men Type: BLOOD SPECIMENOrdering Facility: [facility] Address: [address] [place] [address] Performed By: #### 5 7021-8 ####[facility] RESEARCH INSTITUTENCLIA [id number] [place] [address] [place] Hematocrit (Bld) [Volume fraction] 46.1 % Normal 39.0-51.0 [facility] Comment on above: Order Comment: Speci men Type: BLOOD SPECIMENOrdering Facility: [facility] Address: [address] [place] [address] Performed By: #### 5 7021-8 ####[facility] INSTITUTENCBEAR [facility] [id number] [place] [address] [place] Hemoglobin (Bld) [Mass/Vol] 14.8 g/dL Normal 13.0-17.0 [facility] Comment on above: Order Comment: Speci men Type: BLOOD SPECIMENOrdering Facility: [facility] Address: [address] [place] [address] Performed By: #### 5 7021-8 ####[facility] [id number] [place] [address] [place] Immature granulocytes (Bld) [#/Vol] 0.03 10*3/uL Normal <0.10 [facility] Comment on above: Order Comment: Speci men Type: BLOOD SPECIMENOrdering Facility: [facility] Address: [address] [place] [address] Performed By: #### 5 7021-8 ####[facility] [id number] [place] [address] [place] Immature granulocytes/100 WBC (Bld) 0.5 % Normal [facility] Comment on above: Order Comment: Speci men Type: BLOOD SPECIMENOrdering Facility: [facility] Address: [address] [place] [address] Performed By: #### 5 7021-8 ####[facility] [id number] [place] [address] [place] Lymphocytes (Bld) [#/Vol] 0.83 10*3/uL Low 1.00-4.00 [facility] Comment on above: Order Comment: Speci men Type: BLOOD SPECIMENOrdering Facility: [facility] Address: [address] [place] [address] Performed By: #### 5 7021-8 ####[facility] RESEARCH INSTITUTEJEANA [id number] [place] [address] [place] Lymphocytes/100 WBC (Bld) 13.2 % Normal [facility] Comment on above: Order Comment: Speci men Type: BLOOD SPECIMENOrdering Facility: [facility] Address: [address] [place] [address] Performed By: #### 5 7021-8 ####[facility] [id number] [place] [address] [place] MCH (RBC) [Entitic mass] 26.6 pg Normal 26.0-34.0 [facility] Comment on above: Order Comment: Speci men Type: BLOOD SPECIMENOrdering Facility: [facility] Address: [address] [place] [address] Performed By: #### 5 7021-8 ####[facility] [id number] [place] [address] [place] MCHC (RBC) [Mass/Vol] 32.1 g/dL Normal 30.5-36.0 [facility] Comment on above: Order Comment: Speci men Type: BLOOD SPECIMENOrdering Facility: [facility] Address: [address] [place] [address] Performed By: #### 5 7021-8 ####[facility] RESEARCH INSTITUTENCLI [id number] [place] [address] [place] MCV (RBC) [Entitic vol] 82.9 fL Normal 80.0-100.0 [facility] Comment on above: Order Comment: Speci men Type: BLOOD SPECIMENOrdering Facility: [facility] Address: [address] [place] [address] Performed By: #### 5 7021-8 ####[facility] SABIWNCLIA [id number] [place] [address] [place] Monocytes (Bld) [#/Vol] 0.35 10*3/uL Normal <0.87 [facility] Comment on above: Order Comment: Speci men Type: BLOOD SPECIMENOrdering Facility: [facility] Address: [address] [place] [address] Performed By: #### 5 7021-8 ####[facility]ITALA [id number] [place] [address] [place] Monocytes/100 WBC (Bld) 5.6 % Normal [facility] Comment on above: Order Comment: Speci men Type: BLOOD SPECIMENOrdering Facility: [facility] Address: [address] [place] [address] Performed By: #### 5 7021-8 ####[facility] [id number] [place] [address] [place] Neutrophils (Bld) [#/Vol] 5.03 10*3/uL Normal 1.45-7.50 [facility] Comment on above: Order Comment: Speci men Type: BLOOD SPECIMENOrdering Facility: [facility] Address: [address] [place] [address] Performed By: #### 5 7021-8 ####[facility] CENTERLIA [id number] [place] [address] [place] Neutrophils/100 WBC (Bld) 80.0 % Normal [facility] Comment on above: Order Comment: Speci men Type: BLOOD SPECIMENOrdering Facility: [facility] Address: [address] [place] [address] Performed By: #### 5 7021-8 ####[facility] [id number] [place] [address] [place] Nucleated RBC (Bld) [#/Vol] 10*3/uL Normal <0.01 [facility] Comment on above: Order Comment: Speci men Type: BLOOD SPECIMENOrdering Facility: [facility] Address: [address] [place] [address] Performed By: #### 5 7021-8 ####[facility] [id number] [place] [address] [place] Nucleated RBC/100 WBC (Bld) [Ratio] 0.0 /100 WBC Normal [facility] Comment on above: Order Comment: Speci men Type: BLOOD SPECIMENOrdering Facility: [facility] Address: [address] [place] [address] Performed By: #### 5 7021-8 ####[facility] [id number] [place] [address] [place] Platelet mean volume (Bld) [Entitic vol] 9.5 fL Normal 9.0-12.7 [facility] Comment on above: Order Comment: Speci men Type: BLOOD SPECIMENOrdering Facility: [facility] Address: [address] [place] [address] Performed By: #### 5 7021-8 ####[facility] [id number] [place] [address] [place] Platelets (Bld) [#/Vol] 175 10*3/uL Normal 150-400 [facility] Comment on above: Order Comment: Speci men Type: BLOOD SPECIMENOrdering Facility: [facility] Address: [address] [place] [address] Performed By: #### 5 7021-8 ####[facility] [id number] [place] [address] [place] RBC (Bld) [#/Vol] 5.56 10*6/uL Normal 4.20-6.00 [facility] Comment on above: Order Comment: Speci men Type: BLOOD SPECIMENOrdering Facility: [facility] Address: [address] [place] [address] Performed By: #### 5 7021-8 ####[facility] CENTERSAMA [id number] [place] [address] [place] WBC (Bld) [#/Vol] 6.28 10*3/uL Normal 3.70-11.00 [facility] Comment on above: Order Comment: Speci men Type: BLOOD SPECIMENOrdering Facility: [facility] Address: [address] [place] [address] Performed By: #### 5 7021-8 ####[facility] INSTITUTENCBEAR [facility] [id number] [place] [address] [place] IMMUNOFIXATION SCREEN, SERUM [...] monoclonal gammopathy. Clinical correlation is necessary. Normal [facility] Comment on above: Order Comment: Speci [facility] Type: BLOOD SPECIMENOrdering Facility: [facility] Address: [address] [place] [address] Performed By: #### I FES ####[facility] LABCLIA [id number] [place] [address] [place] MPA RESULT A poorly defined reg ion of restricted mobility is present that may represent an M protein. Abnormal No M protein is identified. [facility] Comment on above: Order Comment: Carlyi [facility] Type: BLOOD SPECIMENOrdering Facility: [facility] Address: [address] [place], [place] [address] Performed By: #### I FESC ####[facility] LABCLIA [id number] [id number] [address] [place] STAFF REVIEW (MPA) Reviewed by Piedad Cardoso M.D., Ph.D Normal [facility] Comment on above: Order Comment: Speci men Type: BLOOD SPECIMENOrdering Facility: [facility] Address: [address] [place] [address] Performed By: #### I FESC ####[facility] LABCLIA [id number] [place] [address] [place] IMMUNOGLOBULINS,IGG,IGA,IGMo n 11-04-2024 IgA [Mass/Vol] 84 mg/dL Normal 70-400 [facility] Comment on above: Order Comment: Speci men Type: BLOOD SPECIMENOrdering Facility: [facility] Address: [address] [place] [address] Performed By: #### S ERIMM ####[facility] LABCLIA [id number] [place] [address] [place] IgG [Mass/Vol] 888 mg/dL Normal 700-1600 [facility] Comment on above: Order Comment: Speci men Type: BLOOD SPECIMENOrdering Facility: [facility] Address: [address] [place] [address] Performed By: #### S ERIMM ####[facility] LABCLIA [id number] [place] [address] [place] IgM [Mass/Vol] 71 mg/dL Normal 40-230 [facility] Comment on above: Order Comment: Speci men Type: BLOOD SPECIMENOrdering Facility: [facility] Address: [address] [place] [address] Performed By: #### S ERIMM ####[facility] LABCLIA [id number] [place] [address] [place] KAPPA/PHAN,FREE,SERon 2024 Immunoglobulin light chains.kappa.free (S) [Mass/Vol] 27.2 mg/L High 3.3-19.4 [facility] Comment on above: Order Comment: Speci men Type: BLOOD SPECIMENOrdering Facility: [facility] Address: [address] [place] [address] Result Comment: Rare ly, increased serum free light chains levels may not be detected or accurately quantified due to prozone phenomenon or in high viscosity samples using this immunoturbidimetric assay. Correlation with other laboratory results and clinical findings is recommended. The [place] Free Light Chain was performed using the Binding Site Optilite immunoturbidimetric method. Result obtained with different assay methods or kits cannot be used interchangeably. Performed By: #### K LFRS ####[facility] LABCLIA [id number] [place] [address] [place] Immunoglobulin light chains.kappa/Immunog lobulin light chains.lambda (S) [Mass ratio] 1.32 Normal 0.26-1.65 [facility] Comment on above: Order Comment: Speci men Type: BLOOD SPECIMENOrdering Facility: [facility] Address: [address] [place] [address] Performed By: #### K LFRS ####[facility] LABCLIA [id number] [place] [address] [place] Immunoglobulin light chains.lambda.free [Mass/Vol] 20.6 mg/L Normal 5.7-26.3 [facility] Comment on above: Order Comment: Speci men Type: BLOOD SPECIMENOrdering Facility: [facility] Address: [address] [place] [address] Result Comment: Rare ly, increased serum free [...] used interchangeably. Performed By: #### K LFRS ####[facility] LABCLIA [id number] [place] [address] [place] PROTEIN ELECTROPHORESIS SERU M (P)on 11-04-2024 Albumin [Mass/Vol] 3.65 g/dL Normal 3.43-5.41 [facility] Comment on above: Order Comment: Speci men Type: BLOOD SPECIMENOrdering Facility: [facility] Address: [address] [place] [address] Performed By: #### L [id number] ####[facility] LABCLIA [id number] [place] [address] [place] Alpha 1 globulin Elph [Mass/Vol] 0.32 g/dL Normal 0.18-0.43 [facility] Comment on above: Order Comment: Speci men Type: BLOOD SPECIMENOrdering Facility: [facility] Address: [address] [place] [address] Performed By: #### L [id number] ####[facility] LABCLIA [id number] [place] [address] [place] Alpha 2 globulin Elph [Mass/Vol] 0.78 g/dL Normal 0.42-0.98 [facility] Comment on above: Order Comment: Speci men Type: BLOOD SPECIMENOrdering Facility: [facility] Address: [address] [place] [address] Performed By: #### L [id number] ####[facility] LABIA [id number] [place] [address] [place] Beta globulin Elph [Mass/Vol] 0.66 g/dL Normal 0.61-1.17 [facility] Comment on above: Order Comment: Speci men Type: BLOOD SPECIMENOrdering Facility: [facility] Address: [address] [place] [address] Performed By: #### L [id number] ####[facility] LABCLIA [id number] [place] [address] [place] Gamma globulin Elph [Mass/Vol] 0.70 g/dL Normal 0.53-1.51 [facility] Comment on above: Order Comment: Speci men Type: BLOOD SPECIMENOrdering Facility: [facility] Address: [address] [place] [address] Performed By: #### L [id number] ####[facility] LABIA [id number] [address] [place] INTERPRETATION COMMENT FOR PROTEIN ELECTROPHORESIS The atypical region is relatively poorly defined and may represent an unusual presentation of polyclonal immunoglobulins, but cannot rule out the presence of a low level M protein. If clinically indicated, monoclonal protein analysis and serum free light chain analysis are suggested to evaluate further for monoclonal gammopathy. Normal [facility] Comment on above: Order Comment: Jessi chen Type: BLOOD SPECIMENOrdering Facility: [facility] Address: [address] [place] [address] Performed By: #### L [id number] ####[facility] LABIA [id number] [address] [place] M-PROTEIN LOCATION Normal [facility] Comment on above: Order Comment: Jessi chen Type: BLOOD SPECIMENOrdering Facility: [facility] Address: [address] [place] [address] Result Comment: Not Applicable. Performed By: #### L [id number] ####[facility] LABCLIA [id number] [place] [address] [place] Protein Fractions [Interp] An atypical region of restricted mobility is identified on protein electrophoresis. Abnormal No definitive M protein is identified on protein electrophore sis. [facility] Comment on above: Order Comment: Jessi april Type: BLOOD SPECIMENOrdering Facility: [facility] Address: [address] [place] [address] Performed By: #### L [id number] ####[facility] LABIA [id number] [address] [place] Protein.monoclonal Elph [Mass/Vol] 0.00 g/dL Normal <=0.00 [facility] Comment on above: Order Comment: Speci men Type: BLOOD SPECIMENOrdering Facility: [facility] Address: [address] [place] [address] Performed By: #### L [id number] ####[facility] LABIA [id number] [place] [address] [place] SPE STAFF REVIEW Reviewed by Piedad Cardoso M.D., Ph.D Normal [facility] Comment on above: Order Comment: Speci men Type: BLOOD SPECIMENOrdering Facility: [facility] Address: [address] [place] [address] Performed By: #### L [id number] ####[facility] LABIA [id number] [place] [address] [place] Prot SerPl-mCncon 11-04-2024 Protein [Mass/Vol] 6.1 g/dL Low 6.3-8.0 [facility] Comment on above: Order Comment: Speci men Type: BLOOD SPECIMENOrdering Facility: [facility] Address: [address] [place] [address] Performed By: #### 2 885-2 ####[facility] [id number] [place] [id number] [place] Cardiology Visit Reporton Cardiology Visit Report [facility] [address] [place] [address]. [address] [place], [place] [address] OFFICE VISIT Date of Service: 08/08/24 MR#: [id number] Acct: [id number] Name: RONNIE YARBROUGH Rep #: [id number] : 1950 Provider: Dr. 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 Normal [facility] 08-05-2024 [facility] Telephone (FAMPWS) RONNIE YARBROUGH I ([id number]) 1950 M Date Time Provider Department 08/05/[facility] During your visit today, we recorded the [...] mouth two times a day. . - xvqmyqymqzr-tvdgnkejl-vsrwbc er (TRELEGY ELLIPTA) 100-62.5-25 mcg inhalation powder [...] [R45.89] 06/20/2018 06/26/2018 Pancytopenia due to chemotherapy ([facility]) [D61.810]06/25/2018 Fall [W19.XXXA] 07/17/2018 11/25/2019 Acute on [...] [Z79.899] 03/15/2021 (more content not included)... Normal [facility] Basic metabolic 2000 panelon 08-01-2024 Anion gap [Moles/Vol] 10 mmol/L Normal 8-15 [facility] Comment on above: Order Comment: Speci men Type: BLOOD SPECIMENOrdering Facility: [facility] Address: [address] [place] [address] Performed By: #### 2 4321-2 ####[facility] MILLTOWNCLIA [id number] [place] [address] [place] Calcium [Mass/Vol] 9.6 mg/dL Normal 8.5-10.2 [facility] Comment on above: Order Comment: Speci men Type: BLOOD SPECIMENOrdering Facility: [facility] Address: [address] [place] [address] Performed By: #### 2 4321-2 ####[facility] MILLTOWNCLIA [id number] [place] [address] [place] Chloride [Moles/Vol] 100 mmol/L Normal 98-107 [facility] Comment on above: Order Comment: Speci men Type: BLOOD SPECIMENOrdering Facility: [facility] Address: [address] [place] [address] Performed By: #### 2 4321-2 ####[facility] MILLTOWNCLIA [id number] [place] [address] [place] CO2 [Moles/Vol] 26 mmol/L Normal 22-30 [facility] Comment on above: Order Comment: Speci men Type: BLOOD SPECIMENOrdering Facility: [facility] Address: [address] [place] [address] Performed By: #### 2 4321-2 ####[facility] MILLTOWNCLIA [id number] [place] [address] [place] Creatinine [Mass/Vol] 1.06 mg/dL Normal 0.73-1.22 [facility] Comment on above: Order Comment: Jessi chen Type: BLOOD SPECIMENOrdering Facility: [facility] Address: [address] [place] [address] Performed By: #### 2 4321-2 ####[facility] [id number] [address] [place] Creatinine and Glomerular filtration rate.predicted panel (S/P/Bld) 74 mL/min/1.73m??? Normal >=60 [facility] Comment on above: Order Comment: Jsesi chen Type: BLOOD SPECIMENOrdering Facility: [facility] Address: [address] [place] [address] Result Comment: Aleyda mated Glomerular Filtration Rate [...] actual GFR. Performed By: #### 2 4321-2 ####[facility] [id number] [place] [address] [place] Glucose [Mass/Vol] 121 mg/dL High 74-99 [facility] Comment on above: Order Comment: Jessi chen Type: BLOOD SPECIMENOrdering Facility: [facility] Address: [address] [place] [address] Result Comment: The [place] Diabetes Association (ADA) provides guidance for cutoff [...] Standards of Medical Care in Diabetes 2016, [place] [employer]. Diabetes Care. 2016.39(Suppl 1). Performed By: #### 2 4321-2 ####[facility] [id number] [place] [address] [place] Potassium [Moles/Vol] 4.4 mmol/L Normal 3.7-5.1 [facility] Comment on above: Order Comment: Speci men Type: BLOOD SPECIMENOrdering Facility: [facility] Address: [address] [place] [address] Performed By: #### 2 4321-2 ####[facility] [id number] [place] [address] [place] Sodium [Moles/Vol] 136 mmol/L Normal 136-144 [facility] Comment on above: Order Comment: Speci men Type: BLOOD SPECIMENOrdering Facility: [facility] Address: [address] [place] [address] Performed By: #### 2 4321-2 ####[facility] [id number] [place] [address] [place] Urea nitrogen [Mass/Vol] 31 mg/dL High 9-24 [facility] Comment on above: Order Comment: Speci men Type: BLOOD SPECIMENOrdering Facility: [facility] Address: [address] [place] [address] Performed By: #### 2 4321-2 ####[facility] [id number] [place] [address] [place] CBC W Auto Differential pane l (Bld)on 08-01-2024 Basophils (Bld) [#/Vol] 10*3/uL Normal <0.11 [facility] Comment on above: Order Comment: Speci men Type: BLOOD SPECIMENOrdering Facility: [facility] Address: [address] [place] [address] Performed By: #### 5 7021-8 ####[facility] MILLWNCLIA [id number] [place] [address] [place] Basophils/100 WBC (Bld) 0.2 % Normal [facility] Comment on above: Order Comment: Speci men Type: BLOOD SPECIMENOrdering Facility: [facility] Address: [address] [place] [address] Performed By: #### 5 7021-8 ####[facility] INSTITUTENCLIA [id number] [place] [address] [place] Differential cell count method Nom (Bld) Auto Normal [facility] Comment on above: Order Comment: Speci men Type: BLOOD SPECIMENOrdering Facility: [facility] Address: [address] [place] [address] Performed By: #### 5 7021-8 ####[facility] CENTERLIA [id number] [place] [address] [place] Eosinophils (Bld) [#/Vol] 0.03 10*3/uL Normal <0.46 [facility] Comment on above: Order Comment: Speci men Type: BLOOD SPECIMENOrdering Facility: [facility] Address: [address] [place] [address] Performed By: #### 5 7021-8 ####[facility] MILLWNCLIA [id number] [place] [address] [place] Eosinophils/100 WBC (Bld) 0.5 % Normal [facility] Comment on above: Order Comment: Speci men Type: BLOOD SPECIMENOrdering Facility: [facility] Address: [address] [place] [address] Performed By: #### 5 7021-8 ####[facility] MILLWNCLIA [id number] [place] [address] [place] Erythrocyte distribution width (RBC) [Ratio] 16.3 % High 11.5-15.0 [facility] Comment on above: Order Comment: Speci men Type: BLOOD SPECIMENOrdering Facility: [facility] Address: [address] [place] [address] Performed By: #### 5 7021-8 ####[facility] RESEARCH INSTITUTEJEANA [id number] [place] [address] [place] Hematocrit (Bld) [Volume fraction] 41.7 % Normal 39.0-51.0 [facility] Comment on above: Order Comment: Speci men Type: BLOOD SPECIMENOrdering Facility: [facility] Address: [address] [place] [address] Performed By: #### 5 7021-8 ####[facility] RESEARCH INSTITUTEJASWANTRome [id number] [place] [address] [place] Hemoglobin (Bld) [Mass/Vol] 13.1 g/dL Normal 13.0-17.0 [facility] Comment on above: Order Comment: Speci men Type: BLOOD SPECIMENOrdering Facility: [facility] Address: [address] [place] [address] Performed By: #### 5 7021-8 ####[facility] RESE[facility] INSTITUTEJEANA [id number] [place] [address] [place] Immature granulocytes (Bld) [#/Vol] 0.04 10*3/uL Normal <0.10 [facility] Comment on above: Order Comment: Speci men Type: BLOOD SPECIMENOrdering Facility: [facility] Address: [address] [place] [address] Performed By: #### 5 7021-8 ####[facility] RESEARCH INSTITUTENCLIA [id number] [place] [address] [place] Immature granulocytes/100 WBC (Bld) 0.7 % Normal [facility] Comment on above: Order Comment: Speci men Type: BLOOD SPECIMENOrdering Facility: [facility] Address: [address] [place] [address] Performed By: #### 5 7021-8 ####[facility] [id number] [place] [address] [place] Lymphocytes (Bld) [#/Vol] 0.81 10*3/uL Low 1.00-4.00 [facility] Comment on above: Order Comment: Speci men Type: BLOOD SPECIMENOrdering Facility: [facility] Address: [address] [place] [address] Performed By: #### 5 7021-8 ####[facility] [id number] [place] [address] [place] Lymphocytes/100 WBC (Bld) 14.7 % Normal [facility] Comment on above: Order Comment: Speci men Type: BLOOD SPECIMENOrdering Facility: [facility] Address: [address] [place] [address] Performed By: #### 5 7021-8 ####[facility] [id number] [place] [address] [place] MCH (RBC) [Entitic mass] 25.8 pg Low 26.0-34.0 [facility] Comment on above: Order Comment: Speci men Type: BLOOD SPECIMENOrdering Facility: [facility] Address: [address] [place] [address] Performed By: #### 5 7021-8 ####[facility] [id number] [place] [address] [place] MCHC (RBC) [Mass/Vol] 31.4 g/dL Normal 30.5-36.0 [facility] Comment on above: Order Comment: Speci men Type: BLOOD SPECIMENOrdering Facility: [facility] Address: [address] [place] [address] Performed By: #### 5 7021-8 ####[facility] SABIGibranNCLIA [id number] [place] [address] [place] MCV (RBC) [Entitic vol] 82.1 fL Normal 80.0-100.0 [facility] Comment on above: Order Comment: Speci men Type: BLOOD SPECIMENOrdering Facility: [facility] Address: [address] [place] [address] Performed By: #### 5 7021-8 ####[facility] RESEARCH INSTITUTENCA [id number] [place] [address] [place] Monocytes (Bld) [#/Vol] 0.34 10*3/uL Normal <0.87 [facility] Comment on above: Order Comment: Speci men Type: BLOOD SPECIMENOrdering Facility: [facility] Address: [address] [place] [address] Performed By: #### 5 7021-8 ####[facility] RESEARCH INSTITUTENCLIA [id number] [place] [address] [place] Monocytes/100 WBC (Bld) 6.2 % Normal [facility] Comment on above: Order Comment: Speci men Type: BLOOD SPECIMENOrdering Facility: [facility] Address: [address] [place] [address] Performed By: #### 5 7021-8 ####[facility] CENTERLIA [id number] [place] [address] [place] Neutrophils (Bld) [#/Vol] 4.29 10*3/uL Normal 1.45-7.50 [facility] Comment on above: Order Comment: Speci men Type: BLOOD SPECIMENOrdering Facility: [facility] Address: [address] [place] [address] Performed By: #### 5 7021-8 ####[facility] CENTERLIA [id number] [place] [address] [place] Neutrophils/100 WBC (Bld) 77.7 % Normal [facility] Comment on above: Order Comment: Speci men Type: BLOOD SPECIMENOrdering Facility: [facility] Address: [address] [place] [address] Performed By: #### 5 7021-8 ####[facility] SABIRIVERSIDEJEANA [id number] [place] [address] [place] Nucleated RBC (Bld) [#/Vol] 10*3/uL Normal <0.01 [facility] Comment on above: Order Comment: Speci men Type: BLOOD SPECIMENOrdering Facility: [facility] Address: [address] [place] [address] Performed By: #### 5 7021-8 ####[facility] INSTITUTEJASWANTBEAR RIVER [facility] [id number] [place] [address] [place] Nucleated RBC/100 WBC (Bld) [Ratio] 0.0 /100 WBC Normal [facility] Comment on above: Order Comment: Speci men Type: BLOOD SPECIMENOrdering Facility: [facility] Address: [address] [place] [address] Performed By: #### 5 7021-8 ####[facility] RES[facility] INSTITUTEJEANA [id number] [place] [address] [place] Platelet mean volume (Bld) [Entitic vol] 9.8 fL Normal 9.0-12.7 [facility] Comment on above: Order Comment: Speci men Type: BLOOD SPECIMENOrdering Facility: [facility] Address: [address] [place] [address] Performed By: #### 5 7021-8 ####[facility] RESEARCH INSTITUTENCLIA [id number] [place] [address] [place] Platelets (Bld) [#/Vol] 189 10*3/uL Normal 150-400 [facility] Comment on above: Order Comment: Speci men Type: BLOOD SPECIMENOrdering Facility: [facility] Address: [address] [place] [address] Performed By: #### 5 7021-8 ####[facility] RES[facility] INSTITUTENCLIA [id number] [place] [address] [place] RBC (Bld) [#/Vol] 5.08 10*6/uL Normal 4.20-6.00 [facility] Comment on above: Order Comment: Speci men Type: BLOOD SPECIMENOrdering Facility: [facility] Address: [address] [place] [address] Performed By: #### 5 7021-8 ####[facility] RES[facility]ARCH INSTITUTENCA [id number] [place] [address] [place] WBC (Bld) [#/Vol] 5.52 10*3/uL Normal 3.70-11.00 [facility] Comment on above: Order Comment: Speci men Type: BLOOD SPECIMENOrdering Facility: [facility] Address: [address] [place] [address] Performed By: #### 5 7021-8 ####[facility] RES[facility] INSTITUTENCA [id number] [place] [address] [place] CRP SerPl-mCncon 08-01-2024 CRP [Mass/Vol] 0.8 mg/dL Normal <0.9 [facility] Comment on above: Order Comment: Speci men Type: BLOOD SPECIMENOrdering Facility: [facility] Address: [address] [place] [address] Performed By: #### 1 988-5, 2276-4, 41790-9, 2885-2 ####[facility] LABCLIA [id number] [place] [address] [place] Ferritin SerPl-mCncon 2023 Ferritin [Mass/Vol] 31.0 ng/mL Normal 30.3-565.7 [facility] Comment on above: Order Comment: Speci men Type: BLOOD SPECIMENOrdering Facility: [facility] Address: [address] [place] [address] Performed By: #### 1 988-5, 2276-4, 92128-1, 2885-2 ####[facility] LABCLIA [id number] [address] OF [facility] IMMUNOFIXATION SCREEN, SERUM on 08-01-2024 MPA RESULT No M protein is identified. Normal No M protein is identified. [facility] Comment on above: Order Comment: Speci men Type: BLOOD SPECIMENOrdering Facility: [facility] Address: [address] [place] [address] Performed By: #### I FES ####[facility] LABCLIA [id number] [address] [place] STAFF REVIEW (MPA) Reviewed by Dr. Candy De La Cruz MD [facility] Comment on above: Order Comment: Speci men Type: BLOOD SPECIMENOrdering Facility: [facility] Address: [address] [place] [address] Performed By: #### I [facility] ####[facility] LABCLIA [id number] [place] [address] [place] IMMUNOGLOBULINS,IGG,IGA,IGMo n 08-01-2024 IgA [Mass/Vol] 67 mg/dL Low 70-400 [facility] Comment on above: Order Comment: Speci men Type: BLOOD SPECIMENOrdering Facility: [facility] Address: [address] [place] [address] Performed By: #### S ERIMM ####[facility] LABCLIA [id number] [place] [address] [place] IgG [Mass/Vol] 771 mg/dL Normal 700-1600 [facility] Comment on above: Order Comment: Speci men Type: BLOOD SPECIMENOrdering Facility: [facility] Address: [address] [place] [address] Performed By: #### S ERIMM ####[facility] LABIA [id number] [place] [address] [place] IgM [Mass/Vol] 74 mg/dL Normal 40-230 [facility] Comment on above: Order Comment: Speci men Type: BLOOD SPECIMENOrdering Facility: [facility] Address: [address] [place] [address] Performed By: #### S ERIMM ####[facility] LABIA [id number] [place] [address] [place] Iron and Iron binding capaci ty panelon 08-01-2024 Iron [Mass/Vol] 46 ug/dL Normal 41-186 [facility] Comment on above: Order Comment: Speci men Type: BLOOD SPECIMENOrdering Facility: [facility] Address: [address] [place] [address] Performed By: #### 1 988-5, 2276-4, 78494-9, 2885-2 ####[facility] LABIA [id number] [place] [address] [place] Iron binding capacity [Mass/Vol] 255 ug/dL Normal 232-386 [facility] Comment on above: Order Comment: Speci men Type: BLOOD SPECIMENOrdering Facility: [facility] Address: [address] [place] [address] Performed By: #### 1 988-5, 2276-4, 20284-2, 2885-2 ####[facility] LABIA [id number] [place] [address] [place] Iron/TIBC [Molar ratio] 18.0 % Normal 15.0-57.0 [facility] Comment on above: Order Comment: Speci men Type: BLOOD SPECIMENOrdering Facility: [facility] Address: [address] [place] [address] Performed By: #### 1 988-5, 2276-4, 47437-9, 2885-2 ####[facility] [id number] [place] [address] [place] KAPPA/PHAN,FREE,SERon 2023 Immunoglobulin light chains.kappa.free (S) [Mass/Vol] 24.3 mg/L High 3.3-19.4 [facility] Comment on above: Order Comment: Speci men Type: BLOOD SPECIMENOrdering Facility: [facility] Address: [address] [place] [address] Result Comment: Rare ly, increased serum free light chains levels may not be detected or accurately quantified due to prozone phenomenon or in high viscosity samples using this immunoturbidimetric assay. Correlation with other laboratory results and clinical findings is recommended. The [place] Free Light Chain was performed using the Binding Site Optilite immunoturbidimetric method. Result obtained with different assay methods or kits cannot be used interchangeably. Performed By: #### K LFRS ####[facility] CENTERIA [id number] [place] [address] [place] Immunoglobulin light chains.kappa/Immunog lobulin light chains.lambda (S) [Mass ratio] 1.37 Normal 0.26-1.65 [facility] Comment on above: Order Comment: Speci men Type: BLOOD SPECIMENOrdering Facility: [facility] Address: [address] [place] [address] Performed By: #### K LFRS ####[facility] CENTERIA [id number] [place] [address] [place] Immunoglobulin light chains.lambda.free [Mass/Vol] 17.7 mg/L Normal 5.7-26.3 [facility] Comment on above: Order Comment: Speci men Type: BLOOD SPECIMENOrdering Facility: [facility] Address: [address] [place] [address] Result Comment: Rare ly, increased serum free [...] used interchangeably. Performed By: #### K LFRS ####[facility] LABIA [id number] [place] [address] [place] PROTEIN ELECTROPHORESIS SERU M (P)on 08-01-2024 Albumin [Mass/Vol] 3.97 g/dL Normal 3.43-5.41 [facility] Comment on above: Order Comment: Speci men Type: BLOOD SPECIMENOrdering Facility: [facility] Address: [address] [place] [address] Performed By: #### L [id number] ####[facility] LABIA [id number] [place] [address] [place] Alpha 1 globulin Elph [Mass/Vol] 0.31 g/dL Normal 0.18-0.43 [facility] Comment on above: Order Comment: Speci men Type: BLOOD SPECIMENOrdering Facility: [facility] Address: [address] [place] [address] Performed By: #### L [id number] ####[facility] LABIA [id number] [place] [address] [place] Alpha 2 globulin Elph [Mass/Vol] 0.74 g/dL Normal 0.42-0.98 [facility] Comment on above: Order Comment: Speci men Type: BLOOD SPECIMENOrdering Facility: [facility] Address: [address] [place] [address] Performed By: #### L [id number] ####[facility] LABIA [id number] [place] [address] [place] Beta globulin Elph [Mass/Vol] 0.70 g/dL Normal 0.61-1.17 [facility] Comment on above: Order Comment: Speci men Type: BLOOD SPECIMENOrdering Facility: [facility] Address: [address] [place] [address] Performed By: #### L [id number] ####[facility] LABCLIA [id number] [place] [address] [place] Gamma globulin Elph [Mass/Vol] 0.68 g/dL Normal 0.53-1.51 [facility] Comment on above: Order Comment: Speci men Type: BLOOD SPECIMENOrdering Facility: [facility] Address: [address] [place] [address] Performed By: #### L [id number] ####[facility] LABCLIA [id number] [place] [address] [place] M-PROTEIN LOCATION Normal [facility] Comment on above: Order Comment: Speci men Type: BLOOD SPECIMENOrdering Facility: [facility] Address: [address] [place] [address] Result Comment: Not Applicable. Performed By: #### L [id number] ####[facility] LABCLIA [id number] [place] [address] [place] Protein Fractions [Interp] No definitive M protein is identified on protein electrophoresis. Normal No definitive M protein is identified on protein electrophore sis. [facility] Comment on above: Order Comment: Speci men Type: BLOOD SPECIMENOrdering Facility: [facility] Address: [address] [place] [address] Performed By: #### L [id number] ####[facility] LABCLIA [id number] [place] [address] [place] Protein.monoclonal Elph [Mass/Vol] 0.00 g/dL Normal <=0.00 [facility] Comment on above: Order Comment: Speci men Type: BLOOD SPECIMENOrdering Facility: [facility] Address: [address] [place] [address] Performed By: #### L [id number] ####[facility] LABCLIA [id number] [place] [address] [place] SPE STAFF REVIEW Reviewed by Dr. Candy De La Cruz MD [facility] Comment on above: Order Comment: Speci men Type: BLOOD SPECIMENOrdering Facility: [facility] Address: [address] [place] [address] Performed By: #### L [id number] ####[facility] LABCLIA [id number] [place] [address] [place] PVR ANK PRESS ALESSANDRA VAS LABon 08-01-2024 PVR ANK PRESS ALESSANDRA VAS LAB Non-Invasive Vascular Laboratory [facility] Lower Extremity Arterial Physiology Study Bilateral/Complete Date [...] Normal at rest. Technologist: Rufina Swartz RVT [facility] Ordering physician: ESVIN MARCUS Interpreting physician: TAYLOR Shaikh DO Final CC Intent Medical Image : [id number] [email or web address] See Link below for Image Normal [facility] Prot SerPl-mCncon 08-01-2024 Protein [Mass/Vol] 6.4 g/dL Normal 6.3-8.0 [facility] Comment on above: Order Comment: Speci men Type: BLOOD SPECIMENOrdering Facility: [facility] Address: [address] [place] [address] Performed By: #### 1 988-5, 2276-4, 75799-6, 2885-2 ####[facility] LABCLIA [id number] [place] [address] [place] CNOVon 07-02-2024 CNOV Office Visit (PODIWS ) RONNIE YARBROUGH I ([id number]) 1950 M Date Time Provider Department 07/02/24 8:30 AM ESVIN MARCUS DIANA During your visit today, we recorded the [...] of deep veins of both lower extremities ([facility]) 02/24/2023 Eliquis started 02/2023, can stop 08/2023 Advance directive discussed with patient 09/30/2022 Discussed 09/2022: up to date Allergic rhinitis 03/15/2021 At high risk for falls 12/16/2022 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 Day: +12; Engrafted Protocol(s): 3422 1C Preparative regimen: melphalan Mobilization regimen: neupogen and plerixafor Stem cell source: apheresis CD34 cell dose (x10e6/kg): 5.14 Date of transplant: 06/15/2018 Bilateral leg edema 09/30/2022 Cancer of the skin, 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 Cervical spondylosis without myelopathy Chronic renal failure, stage 3a ([facility]) 03/30/2023 COPD (chronic obstructive pulmonary disease) ([facility]) 03/15/2021 Diabetic eye exam ([facility]) 09/09/2021 Last done 09/09/[address] Juve Reza Dilated aortic root ([facility]) 06/04/2023 Seeing [facility] Discoloration and thickening of nails both [...] transfusion Hypomagnesemia 04/22/2021 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 --ppx ACV and cipro Increased weakness when ambulating 12/16/2022 Inflammatory polyarthropathy ([facility]) Leg DVT (deep venous thromboembolism), acute, left ([facility]) 01/02/2018 --acute DVT gastrocnemius found [...] chemotherapy can resume at discharge Multiple myeloma ([facility]) 11/28/2017 Multiple myeloma in remission ([facility]) Obesity, Class I, BMI 30-34.9 10/01/2012 Osteoarthritis of both hands Pancytopenia due to chemotherapy ([facility]) 06/25/2018 --Transfuse PRBC and platelets per protocol --GCSF Peripheral autonomic neuropathy in disorders classified elsewhere 06/07/2005 Pulmonary hypertension, unspecified ([facility]) 10/23/2019 Spinal stenosis, lumbar region, without neurogenic claudication 11/13/2006 Tobacco abuse 12/27/2011 Quit 2012 Type 2 diabetes mellitus without complication, without long-term current use of insulin ([facility]) 04/12/2018 Venous insufficiency, peripheral 01/06/2014 [...] tablet Ta (more content not included)... Normal [facility] 06-26-2024 [facility] RONNIE YARBROUGH I ([id number]) 1950 M Date Time Provider Department 06/26/24 LESLYE WINTER [facility] During your visit today, we recorded the following information about you: Leslye Winter PA-C 06/26/2024 8:50 AM Addendum Please find out when patient is back in [place]. The infectious disease specialist just got back to me yesterday. They do not need to see him. It looks like they already cancelled the appointment. If still taking atb, can stop. I would like to get repeat labs once they are in [place]. Thanks. SPENCER Hilario Amanda, RN 06/26/2024 9:52 AM Signed Pt called and is notified of providers results and instructions. Pt voices understanding. He states they are back in [place], and he will come in to get lab work done. Chanelle Nolan RN Allergies As of Date: 06/26/2024 (No Known Allergies) Date Reviewed: 05/30/2024 Reviewed by: Ovidio Vincent MD - Fully Assessed Reason for Visit: Patient Update [1234] Primary Visit Diagnosis:Pseudogout [M11.20] Order(s):C-REACTIVE PROTEIN [SQCRP] Order #: [id number] FUTURE Prescriptions as of 06/26/2024 - doxycycline [...] Take one daily in the morning - hqoljppvigz-rfkmmeumc-wlamku er (TRELEGY ELLIPTA) 100-62.5-25 mcg inhalation powder [...] 11/25/2019 Pulmo (more content not included)... Normal [facility] CNOVon 05-30-2024 CNOV Office Visit (FAMPWS ) MAGDARONNIE Lopez ([id number]) 1950 M Date Time Provider Department 05/30/24 9:20 AM OVIDIO VINCENT FAMPWS During your visit today, we recorded the following information about you: Pulse Blood pressure Weight Height 89/minute 119/66 96.2 kg 1.772 m Ovidio Vincent MD 05/30/2024 1:37 PM Signed Ronnie Trino Yarbrough is a 73 year old male [...] Halima Cohen (Rn), RN (Inactive) as Specialty Front Desk Host (Hospice AND Palliative Medicine) Nancie Low, ALICIA as Specialty Front Desk Host (Hematology/Oncology) Marta Lui, ALICIA as Manager Cardiovascular Murray Mooney MD (Hematology/Oncology) Leno Márquez MD (Orthopedics) Loretta Leon PA-C (Pulmonary and Critical Care Medicine) Dr. Ward[facility]/Family [facility] review Reviewed and [...] for falls 06/13/2018: 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[facility]) Comment: Day: +12; Engrafted Protocol(s): 3422 1C Preparative regimen: melphalan Mobilization regimen: neupogen and plerixafor Stem cell source: apheresis CD34 cell dose (x10e6/kg): 5.14 Date of transplant: 06/15/2018 09/30/2022: Bilateral leg edema 04/21/2021: Cancer of the skin, basal cell Comment: excised 04/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 No date: Cervical spondylosis without myelopathy 03/30/2023: Chronic renal failure, stage 3a ([facility]) 03/15/2021: COPD (chronic obstructive pulmonary disease) ([facility]) 12 (more content not included)... Normal [facility] Dion 05-29-2024 [facility] Telephone (FAMPWS) RONNIE YARBROUGH I ([id number]) 1950 M Date Time Provider Department 05/29/24 OVIDIO VINCENT During your visit today, we [...] two times a day with meals. Per [facility] - atorvastatin (LIPITOR) 40 mg [...] Take one daily in the morning - mnsuvxzhmco-okxefeyqh-zkdvpw er (TRELEGY ELLIPTA) 100-62.5-25 mcg inhalation powder [...] (HCC) [Z01.00, (more content not included)... Normal [facility] Telephone (FAMPWS) RONNIE YARBROUGH I ([id number]) 1950 M Date Time Provider Department 05/29/24 OVIDIO VINCENT During your visit today, we [...] two times a day with meals. Per [facility] - atorvastatin (LIPITOR) 40 mg [...] Take one daily in the morning - dlgfxkylnup-bdisyvpbp-gqzymk er (TRELEGY ELLIPTA) 100-62.5-25 mcg inhalation powder [...] [J30.9] 03/15/2021 (more content not included)... Normal [facility] MR Brain WO contraston 05-29 IMPRESSION: Mild volume loss which is predominantly frontal in distribution and suspected remote left orbital blowout fracture. Otherwise normal study. Ems Driver: ROBERTA Transcribe Date/Time: May 29 2024 9:37A Dictated by : HEATH QUINTERO MD This examination was interpreted and the report reviewed and electronically signed by: HEATH QUINTERO MD on May 29 2024 9:44AM [facility] DIVISION OF RADIOLOGY * * *Final Report* * * DATE OF EXAM: May 29 2024 9:33AM M 0294 - MRI BRAIN WO IVCON / [...] orbital blowout fracture. DIVISION OF RADIOLOGY Provider, [facility] Rubens [facility] - 05/29/2024 * * *Final Report* * * DATE OF EXAM: May 29 2024 9:33AM [facility] 0294 - MRI BRAIN WO IVCON / [...] left orbital blowout fracture. Otherwise normal study. Ems Driver: ROBERTA Transcribe Date/Time: May 29 2024 9:37A Dictated by : HEATH QUINTERO MD This examination was interpreted and the report reviewed and electronically signed by: HEATH QUINTERO MD on May 29 2024 9:44AM EST [facility] Radiology Study observation (narrative) [facility] MR Brain WO contrastOrdered By: [facility] Provider on 05-29-2024 [facility] MRI BRAIN WO IVCONon 024 MRI BRAIN [...] left orbital blowout fracture. Otherwise normal study. Ems Driver: ROBERTA Transcribe Date/Time: May 29 2024 9:37A Dictated by : HEATH QUINTERO MD This examination was interpreted and the report reviewed and electronically signed by: HEATH QUINTERO MD on May 29 2024 9:44AM EST [id number] Normal [facility] US CAROTID ARTERIES ALESSANDRA VAS LABon 05-29-2024 US CAROTID ARTERIES ALESSANDRA VAS LAB Non-Invasive Vascular Laboratory [facility] Carotid Duplex Bilateral/Complete Date of service/time: 05/29/2024 [...] Subclavian artery: Patent. Technologist: Rufina Swartz RVT [facility] Ordering physician: OVIDIO VINCENT Interpreting physician: TAYLOR Shaikh DO Final CC Intent Medical Image : [id number] yngoDynamicsSISUID See Link below for Image Normal [facility] CBC W Auto Differential pane l (Bld)on 05-27-2024 Basophils (Bld) [#/Vol] 10*3/uL Normal <0.11 [facility] Comment on above: Order Comment: Speci men Type: BLOOD SPECIMENOrdering Facility: [facility] Address: [address] [place] [address] Performed By: #### 5 7021-8 ####[facility] LABCLIA [id number] [place] [address] [place] Basophils/100 WBC (Bld) 0.1 % Normal [facility] Comment on above: Order Comment: Speci men Type: BLOOD SPECIMENOrdering Facility: [facility] Address: [address] [place] [address] Performed By: #### 5 7021-8 ####[facility] LABCLIA [id number] [place] [address] [place] Differential cell count method Nom (Bld) Auto Normal [facility] Comment on above: Order Comment: Speci men Type: BLOOD SPECIMENOrdering Facility: [facility] Address: [address] [place] [address] Performed By: #### 5 7021-8 ####[facility] LABCLIA [id number] [place] [address] [place] Eosinophils (Bld) [#/Vol] 0.03 10*3/uL Normal <0.46 [facility] Comment on above: Order Comment: Speci men Type: BLOOD SPECIMENOrdering Facility: [facility] Address: [address] [place] [address] Performed By: #### 5 7021-8 ####[facility] LABCLIA [id number] [place] [address] [place] Eosinophils/100 WBC (Bld) 0.4 % Normal [facility] Comment on above: Order Comment: Speci men Type: BLOOD SPECIMENOrdering Facility: [facility] Address: [address] [place] [address] Performed By: #### 5 7021-8 ####[facility] LABCLIA [id number] [place] [address] [place] Erythrocyte distribution width (RBC) [Ratio] 16.8 % High 11.5-15.0 [facility] Comment on above: Order Comment: Speci men Type: BLOOD SPECIMENOrdering Facility: [facility] Address: [address] [place] [address] Performed By: #### 5 7021-8 ####[facility] LABCLIA [id number] [place] [address] [place] Hematocrit (Bld) [Volume fraction] 43.2 % Normal 39.0-51.0 [facility] Comment on above: Order Comment: Speci men Type: BLOOD SPECIMENOrdering Facility: [facility] Address: [address] [place] [address] Performed By: #### 5 7021-8 ####[facility] LABIA [id number] [place] [address] [place] Hemoglobin (Bld) [Mass/Vol] 13.6 g/dL Normal 13.0-17.0 [facility] Comment on above: Order Comment: Speci men Type: BLOOD SPECIMENOrdering Facility: [facility] Address: [address] [place] [address] Performed By: #### 5 7021-8 ####[facility] LABIA [id number] [place] [address] [place] Immature granulocytes (Bld) [#/Vol] 0.05 10*3/uL Normal <0.10 [facility] Comment on above: Order Comment: Speci men Type: BLOOD SPECIMENOrdering Facility: [facility] Address: [address] [place] [address] Performed By: #### 5 7021-8 ####[facility] LABIA [id number] [place] [address] [place] Immature granulocytes/100 WBC (Bld) 0.7 % Normal [facility] Comment on above: Order Comment: Speci men Type: BLOOD SPECIMENOrdering Facility: [facility] Address: [address] [place] [address] Performed By: #### 5 7021-8 ####[facility] LABIA [id number] [place] [id number] [place] Lymphocytes (Bld) [#/Vol] 0.82 10*3/uL Low 1.00-4.00 [facility] Comment on above: Order Comment: Speci men Type: BLOOD SPECIMENOrdering Facility: [facility] Address: [address] [place] [address] Performed By: #### 5 7021-8 ####[facility] LABCLIA [id number] [place] [address] [place] Lymphocytes/100 WBC (Bld) 12.1 % Normal [facility] Comment on above: Order Comment: Speci men Type: BLOOD SPECIMENOrdering Facility: [facility] Address: [address] [place] [address] Performed By: #### 5 7021-8 ####[facility] LABCLIA [id number] [place] [address] [place] MCH (RBC) [Entitic mass] 25.7 pg Low 26.0-34.0 [facility] Comment on above: Order Comment: Speci men Type: BLOOD SPECIMENOrdering Facility: [facility] Address: [address] [place] [address] Performed By: #### 5 7021-8 ####[facility] LABCLIA [id number] [place] [address] [place] MCHC (RBC) [Mass/Vol] 31.5 g/dL Normal 30.5-36.0 [facility] Comment on above: Order Comment: Speci men Type: BLOOD SPECIMENOrdering Facility: [facility] Address: [address] [place] [address] Performed By: #### 5 7021-8 ####[facility] LABCLIA [id number] [place] [address] [place] MCV (RBC) [Entitic vol] 81.7 fL Normal 80.0-100.0 [facility] Comment on above: Order Comment: Speci men Type: BLOOD SPECIMENOrdering Facility: [facility] Address: [address] [place] [address] Performed By: #### 5 7021-8 ####[facility] LABCLIA [id number] [place] [address] [place] Monocytes (Bld) [#/Vol] 0.45 10*3/uL Normal <0.87 [facility] Comment on above: Order Comment: Speci men Type: BLOOD SPECIMENOrdering Facility: [facility] Address: [address] [place] [address] Performed By: #### 5 7021-8 ####[facility] LABCLIA [id number] [place] [address] [place] Monocytes/100 WBC (Bld) 6.6 % Normal [facility] Comment on above: Order Comment: Speci men Type: BLOOD SPECIMENOrdering Facility: [facility] Address: [address] [place] [address] Performed By: #### 5 7021-8 ####[facility] LABCLIA [id number] [place] [address] [place] Neutrophils (Bld) [#/Vol] 5.44 10*3/uL Normal 1.45-7.50 [facility] Comment on above: Order Comment: Speci men Type: BLOOD SPECIMENOrdering Facility: [facility] Address: [address] [place] [address] Performed By: #### 5 7021-8 ####[facility] LABCLIA [id number] [place] [address] [place] Neutrophils/100 WBC (Bld) 80.1 % Normal [facility] Comment on above: Order Comment: Speci men Type: BLOOD SPECIMENOrdering Facility: [facility] Address: [address] [place] [address] Performed By: #### 5 7021-8 ####[facility] LABCLIA [id number] [place] [address] [place] Nucleated RBC (Bld) [#/Vol] 10*3/uL Normal <0.01 [facility] Comment on above: Order Comment: Speci men Type: BLOOD SPECIMENOrdering Facility: [facility] Address: [address] [place] [address] Performed By: #### 5 7021-8 ####[facility] LABCLIA [id number] [place] [address] [place] Nucleated RBC/100 WBC (Bld) [Ratio] 0.0 /100 WBC Normal [facility] Comment on above: Order Comment: Speci men Type: BLOOD SPECIMENOrdering Facility: [facility] Address: [address] [place] [address] Performed By: #### 5 7021-8 ####[facility] LABCLIA [id number] [place] [address] [place] Platelet mean volume (Bld) [Entitic vol] 10.5 fL Normal 9.0-12.7 [facility] Comment on above: Order Comment: Speci men Type: BLOOD SPECIMENOrdering Facility: [facility] Address: [address] [place] [address] Performed By: #### 5 7021-8 ####[facility] LABIA [id number] [place] [address] [place] Platelets (Bld) [#/Vol] 204 10*3/uL Normal 150-400 [facility] Comment on above: Order Comment: Speci men Type: BLOOD SPECIMENOrdering Facility: [facility] Address: [address] [place] [address] Performed By: #### 5 7021-8 ####[facility] LABCLIA [id number] [place] [address] [place] RBC (Bld) [#/Vol] 5.29 10*6/uL Normal 4.20-6.00 [facility] Comment on above: Order Comment: Speci men Type: BLOOD SPECIMENOrdering Facility: [facility] Address: [address] [place] [address] Performed By: #### 5 7021-8 ####[facility] LABIA [id number] [place] [address] [place] WBC (Bld) [#/Vol] 6.80 10*3/uL Normal 3.70-11.00 [facility] Comment on above: Order Comment: Speci men Type: BLOOD SPECIMENOrdering Facility: [facility] Address: [address] [place] [address] Performed By: #### 5 7021-8 ####[facility] LABIA [id number] [place] [address] [place] CK SerPl-cCncon 05-27-2024 CK [Catalytic activity/Vol] 15 U/L Low 51-298 [facility] Comment on above: Order Comment: Speci men Type: BLOOD SPECIMENOrdering Facility: [facility] Address: [address] [place] [address] Performed By: #### 1 988-5, 82600-2, 2276-4, 2157-6 ####[facility] [id number] [place] [address] [place] CNOVon 05-27-2024 CNOV Office Visit (ROGER ) RONNIE YARBROUGH I ([id number]) 1950 M Date Time Provider Department 05/27/24 10:00 AM HAYDE WARD During your visit today, we recorded the following information about you: Pulse Blood pressure Weight Height 82/minute 118/70 97.8 kg 1.753 m Hayde Ward MD 05/27/2024 11:56 AM Signed . [facility] [place] Note Patient name: Ronnie Yarbrough PCP: Ovidio Vincent MD CC: Follow-up COPD HPI: Ronnie Yarbrough 73 year old male former 38-[id number]-vwjn smoker, quitting in 2011 with PMH significant [...] for falls 06/13/2018: 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[facility]) Comment: Day: +12; Engrafted Protocol(s): 3422 1C Preparative regimen: melphalan Mobilization regimen: neupogen and plerixafor Stem cell source: apheresis CD34 cell dose (x10e6/kg): 5.14 Date of transplant: 06/15/2018 09/30/2022: Bilateral leg edema 04/21/2021: Cancer of the skin, basal cell Comment: excised 04/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 No date: Cervical spondylosis without myelopathy 03/30/2023: Chronic renal failure, stage 3a ([facility]) 03/15/2021: COPD (chronic obstructive pulmonary disease) ([facility]) 09/09/2021: Diabetic eye exam ([facility]) Comment: Last done 09/09/[address] Juve Reza 06/04/2023: Dilated aortic root ([facility]) Comment: Seeing [facility] 10/06/2021: Discoloration and thickening of nails both feet 07/04/2022: ED (erectile dysfunction) of organic origin 06/04/2023: Enlarged LA (left atrium) Comment: Seeing [facility] [place] [facility] 06/13/2018: Essential hypertension Comment: -On lisinopril 10mg daily ( home med) -Will d/c for now given hyperkalemia . 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 Normal [facility] RONNIE YARBROUGH Trino ([id number]) 1950 M Date Time Provider Department 05/27/24 7:00 AM [facility] During your visit today, we recorded the following information about you: Temperature Pulse Respiration Blood pressure 97.4 degrees 69/minute 18/minute 128/72 Weight 97.1 kg Leslye Winter PA-C 05/27/2024 8:40 AM Signed Chief Complaint Patient presents with: Hospital F/U HPI Ronnie Lopez Magda is a 73 year old male who presents here today for Hospital Discharge Follow up.. Patient was admitted to [facility] in [place] for septic arthritis of right elbow and [...] is leaving next week for vacation in [place]. Over patient states symptoms have significantly improved. No pain. No fevers. While in hospital, he was also found to be anemic and his BP was low. His bp medications were decreased. Past medical history, appointments, medications, allergies reviewed. Previous Medical History PAST MEDICAL HISTORY 02/24/2023: Acute thromboembolism of deep veins of both lower extremities ([facility]) Comment: Dean started 02/2023, can stop 08/202309/30/2022: Advance directive discussed with patient Comment: Discussed 09/2022: up to date 03/15/2021: Allergic rhinitis 12/16/2022: At high risk for falls 06/13/2018: 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[facility]) Comment: Day: +12; Engrafted Protocol(s): 3422 1C Preparative regimen: melphalan Mobilization regimen: neupogen and plerixafor Stem cell source: apheresis CD34 cell dose (x10e6/kg): 5.14 Date of transplant: 06/15/2018 09/30/2022: Bilateral leg edema 04/21/2021: Cancer of the skin, basal cell Comment: excised 04/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 No date: Cervical spondylosis without myelopathy 03/30/2023: Chronic renal failure, stage 3a ([facility]) 03/15/2021: COPD (chronic obstructive pulmonary disease) ([facility]) 09/09/2021: Diabetic eye exam ([facility]) Comment: Last done 09/09/[address] Juve Reza 06/04/2023: Dilated aortic root ([facility]) Comment: [place] [facility] [facility] Cardio 10/06/2021: Discoloration and thickening of nails both feet 07/04/2022: ED (erectile dysfunction) of organic origin 06/04/2023: Enlarged LA (left atrium) Comment: Seeing [place] [facility] 06/13/2018: Essential hypertension Comment: -On lisinopril 10mg daily ( home med) -Will d/c for now given hyperkalemia . 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[facility]) Comment: --ppx ACV and cipro 12/16/2022: Increased weakness when ambulating No date: Inflammatory polyarthropathy ([facility]) 01/02/2018: Leg DVT (deep venous thromboembolism), acute, left ([facility]) Comment: --acute DVT gastrocnemius found [...] can resume at discharge 11/28/2017: Multiple myeloma ([facility]) No date: Multiple myeloma in remission ([facility]) 10/01/2012: Obesity, Class I, BMI 30-34.9 No date: Osteoarthritis of both hands 06/25/2018: Pancytopenia due to chemotherapy ([facility]) Comment: --Transfuse PRBC and platelets per protocol --GCSF 06/07/2005: Peripheral autonomic neuropathy in disorders classified elsewhere 10/23/2019: Pulmonary hypertension, unspecified ([facility]) 11/13/2006: Spinal stenosis, lumbar region, without neurogenic claudication 12/27/2011: Tobacco abuse Comment: Quit 201204/12/2018: Type 2 diabetes mellitus without complication, without long-term current use of insulin ([facility]) 01/06/2014: Venous insufficiency, peripheral 12/31/2014: Vitamin D deficiency 12/16/2022: Weakness of both lower extremities Previous Surgical History PAST SURGICAL HISTORY 01/28/2013: ANES ARTHROSCOPIC TOTAL SHOULDER REPLACEMENT; Right Comment: [facility] - complete right shoulder replaceement 2009: ARTHRD ANT INTERBODY MIN DSC LUMBAR 1981: ARTHROTOMY W/MENISCUS REPAIR KNEE Comment: RIGHT 1982: ARTHROTOMY W/MENISCUS REPAIR KNEE Comment: LEFT 2007: ARTHRP KNE CONDYLEANDPLATU MEDIALANDLAT COMPARTMENTS; Right Com (more content not included)... Normal [facility] CRP SerPl-mCncon 05-27-2024 CRP [Mass/Vol] 4.7 mg/dL High <0.9 [facility] Comment on above: Order Comment: Speci men Type: BLOOD SPECIMENOrdering Facility: [facility] Address: [address] [place] [address] Performed By: #### 1 988-5, 02457-8, 6-4, 2157-02 ####[facility] LABCLIA [id number] [place] [address] [place] Ferritin [facility] Ferritin [Mass/Vol] 75.0 ng/mL Normal 30.3-565.7 [facility] Comment on above: Order Comment: Speci men Type: BLOOD SPECIMENOrdering Facility: [facility] Address: [address] [place] [address] Performed By: #### 1 988-5, 14489-4, 4, 2157-02 ####[facility] LABCLIA [id number] [place] [address] [place] Folate SerPl[facility]-20 Folate [Mass/Vol] ng/mL Normal >4.7 [facility] Comment on above: Order Comment: Speci men Type: BLOOD SPECIMENOrdering Facility: [facility] Address: [address] [place] [address] Result Comment: A re sult of > 20 ng/mL is not necessarily indicative of a pathologic or treatable condition: it reflects a limitation of the test methodology. Assay reference range: 4.8 to 24.2 ng/mL. Suitable for detection of folate deficiency. Reference: Folate III (Folate III) [package insert V 1.0 [place]an]. [facility], [place], [place]: July 2015. Performed By: #### 2 284-8, 2132-9 ####[facility] LABCLIA [id number] [place] [address] [place] Iron and Iron binding capaci ty panelon 05-27-2024 Iron [Mass/Vol] 36 ug/dL Low 41-186 [facility] Comment on above: Order Comment: Speci men Type: BLOOD SPECIMENOrdering Facility: [facility] Address: [address] [place] [address] Performed By: #### 1 988-5, 58170-8, 2276-4, 7-6 ####[facility] LABIA [id number] [place] [id number] [place] Iron binding capacity [Mass/Vol] 235 ug/dL Normal 232-386 [facility] Comment on above: Order Comment: Speci men Type: BLOOD SPECIMENOrdering Facility: [facility] Address: [address] [place] [address] Performed By: #### 1 988-5, 61497-5, 6-4, 7-6 ####[facility] CENTERIA [id number] [place] [address] [place] Iron/TIBC [Molar ratio] 15.3 % Normal 15.0-57.0 [facility] Comment on above: Order Comment: Speci men Type: BLOOD SPECIMENOrdering Facility: [facility] Address: [address] [place] [address] Performed By: #### 1 988-5, 84024-3, 2276-4, 7-6 ####[facility] [id number] [place] [address] [place] Vit B12 SerPl-ncon 024 Cobalamin (Vitamin B12) [Mass/Vol] 539 pg/mL Normal 232-1245 [facility] Comment on above: Order Comment: Speci men Type: BLOOD SPECIMENOrdering Facility: [facility] Address: [address] [place] [address] Performed By: #### 2 284-8, 2132-9 ####[facility] [id number] [place] [id number] [place] CNOVSPon 05-03-2024 CNOVSP Visit (SP) Office ([facility]) RONNIE YARBROUGH I ([id number]) 1950 M Date Time Provider Department 05/03/24 [...] myelopathy 03/30/2023: Chronic renal failure, stage 3a ([facility]) 03/15/2021: COPD (chronic obstructive pulmonary disease) ([facility]) 09/09/2021: Diabetic eye exam ([facility]) Comment: Last done 09/09/[address] Juve Reza 06/04/2023: Dilated aortic root ([facility]) Comment: Seeing [facility] 10/06/2021: Discoloration and thickening of nails both feet 07/04/2022: ED (erectile dysfunction) of organic origin 06/04/2023: Enlarged LA (left atrium) Comment: Seeing [place] [facility] 06/13/2018: Essential hypertension Comment: -On lisinopril 10mg daily ( home med) -Will d/c for now given hyperkalemia . 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[facility]) Comment: --ppx ACV and cipro 12/16/2022: Increased weakness when ambulating No date: Inflammatory polyarthropathy ([facility]) 01/02/2018: Leg DVT (deep venous thromboembolism), acute, left ([facility]) Comment: --acute DVT gastrocnemius found [...] can resume at discharge 11/28/2017: Multiple myeloma ([facility]) No date: Multiple myeloma in remission ([facility]) 10/01/2012: Obesity, Class I, BMI 30-34.9 No date: Osteoarthritis of both hands 06/25/2018: Pancytopenia due to chemotherapy ([facility]) Comment: --Transfuse PRBC and platelets per protocol --GCSF 06/07/2005: Peripheral autonomic neuropathy in disorders classified elsewhere 10/23/2019: Pulmonary hypertension, unspecified ([facility]) 11/13/2006: Spinal stenosis, lumbar region, without neurogenic claudication 12/27/2011: Tobacco abuse Comment: Quit 201204/12/2018: Type 2 diabetes mellitus without complication, without long-term current use of insulin ([facility]) 01/06/2014: Venous insufficiency, peripheral 12/31/2014: Vitamin D deficiency 12/16/2022: Weakness of both lower extremities PAST SURGICAL HISTORY 01/28/2013: ANES ARTHROSCOPIC TOTAL SHOULDER REPLACEMENT; Right Comment: [facility] - complete right shoulder replaceement 2008: ARTHRD ANT INTERBODY MIN DSC LUMBAR 1980: ARTHROTOMY W/MENISCUS REPAIR KNEE Comment: RIGHT 1981: ARTHROTOMY W/MENISCUS REPAIR KNEE Comment: LEFT 2007: ARTHRP KNE CONDYLEANDPLATU MEDIALANDLAT COMPARTMENTS; Right C (more content not included)... Normal [facility] CBC W Auto Differential pane l (Bld)on 04-26-2024 Basophils (Bld) [#/Vol] 10*3/uL Normal <0.11 [facility] Comment on above: Order Comment: Speci men Type: BLOOD SPECIMENOrdering Facility: [facility] Address: [address] [place] [address] Performed By: #### 5 7021-8 ####[facility] [id number] [place] [address] [place] Basophils/100 WBC (Bld) 0.2 % Normal [facility] Comment on above: Order Comment: Speci men Type: BLOOD SPECIMENOrdering Facility: [facility] Address: [address] [place] [address] Performed By: #### 5 7021-8 ####[facility] [id number] [place] [address] [place] Differential cell count method Nom (Bld) Auto Normal [facility] Comment on above: Order Comment: Speci men Type: BLOOD SPECIMENOrdering Facility: [facility] Address: [address] [place] [address] Performed By: #### 5 7021-8 ####[facility] SULTANAWJASWANTLIA [id number] [place] [address] [place] Eosinophils (Bld) [#/Vol] 10*3/uL Normal <0.46 [facility] Comment on above: Order Comment: Speci men Type: BLOOD SPECIMENOrdering Facility: [facility] Address: [address] [place] [address] Performed By: #### 5 7021-8 ####[facility]PITALWJASWANTLIA [id number] [place] [address] [place] Eosinophils/100 WBC (Bld) 0.2 % Normal [facility] Comment on above: Order Comment: Speci men Type: BLOOD SPECIMENOrdering Facility: [facility] Address: [address] [place] [address] Performed By: #### 5 7021-8 ####[facility] RESE[facility] INSTITUTEJASWANTLIA [id number] [place] [address] [place] Erythrocyte distribution width (RBC) [Ratio] 16.5 % High 11.5-15.0 [facility] Comment on above: Order Comment: Speci men Type: BLOOD SPECIMENOrdering Facility: [facility] Address: [address] [place] [address] Performed By: #### 5 7021-8 ####[facility] SABIWNCLIA [id number] [place] [address] [place] Hematocrit (Bld) [Volume fraction] 43.8 % Normal 39.0-51.0 [facility] Comment on above: Order Comment: Speci men Type: BLOOD SPECIMENOrdering Facility: [facility] Address: [address] [place] [address] Performed By: #### 5 7021-8 ####[facility] [id number] [place] [address] [place] Hemoglobin (Bld) [Mass/Vol] 13.7 g/dL Normal 13.0-17.0 [facility] Comment on above: Order Comment: Speci men Type: BLOOD SPECIMENOrdering Facility: [facility] Address: [address] [place] [address] Performed By: #### 5 7021-8 ####[facility] [id number] [place] [address] [place] Immature granulocytes (Bld) [#/Vol] 0.04 10*3/uL Normal <0.10 [facility] Comment on above: Order Comment: Speci men Type: BLOOD SPECIMENOrdering Facility: [facility] Address: [address] [place] [address] Performed By: #### 5 7021-8 ####[facility] [id number] [place] [address] [place] Immature granulocytes/100 WBC (Bld) 0.7 % Normal [facility] Comment on above: Order Comment: Speci men Type: BLOOD SPECIMENOrdering Facility: [facility] Address: [address] [place] [address] Performed By: #### 5 7021-8 ####[facility] [id number] [place] [address] [place] Lymphocytes (Bld) [#/Vol] 0.74 10*3/uL Low 1.00-4.00 [facility] Comment on above: Order Comment: Speci men Type: BLOOD SPECIMENOrdering Facility: [facility] Address: [address] [place] [address] Performed By: #### 5 7021-8 ####[facility] [id number] [place] [address] [place] Lymphocytes/100 WBC (Bld) 12.4 % Normal [facility] Comment on above: Order Comment: Speci men Type: BLOOD SPECIMENOrdering Facility: [facility] Address: [address] [place] [address] Performed By: #### 5 7021-8 ####[facility] [id number] [place] [address] [place] MCH (RBC) [Entitic mass] 25.0 pg Low 26.0-34.0 [facility] Comment on above: Order Comment: Speci men Type: BLOOD SPECIMENOrdering Facility: [facility] Address: [address] [place] [address] Performed By: #### 5 7021-8 ####[facility] [id number] [place] [address] [place] MCHC (RBC) [Mass/Vol] 31.3 g/dL Normal 30.5-36.0 [facility] Comment on above: Order Comment: Speci men Type: BLOOD SPECIMENOrdering Facility: [facility] Address: [address] [place] [address] Performed By: #### 5 7021-8 ####[facility] [id number] [place] [address] [place] MCV (RBC) [Entitic vol] 79.9 fL Low 80.0-100.0 [facility] Comment on above: Order Comment: Speci men Type: BLOOD SPECIMENOrdering Facility: [facility] Address: [address] [place] [address] Performed By: #### 5 7021-8 ####[facility] [id number] [place] [address] [place] Monocytes (Bld) [#/Vol] 0.32 10*3/uL Normal <0.87 [facility] Comment on above: Order Comment: Speci men Type: BLOOD SPECIMENOrdering Facility: [facility] Address: [address] [place] [address] Performed By: #### 5 7021-8 ####[facility] MILLTOWNCLIA [id number] [place] [address] [place] Monocytes/100 WBC (Bld) 5.4 % Normal [facility] Comment on above: Order Comment: Speci men Type: BLOOD SPECIMENOrdering Facility: [facility] Address: [address] [place] [address] Performed By: #### 5 7021-8 ####[facility] MILLWNCLIA [id number] [place] [address] [place] Neutrophils (Bld) [#/Vol] 4.84 10*3/uL Normal 1.45-7.50 [facility] Comment on above: Order Comment: Speci men Type: BLOOD SPECIMENOrdering Facility: [facility] Address: [address] [place] [address] Performed By: #### 5 7021-8 ####[facility] HOSPITALWNCLIA [id number] [place] [address] [place] Neutrophils/100 WBC (Bld) 81.1 % Normal [facility] Comment on above: Order Comment: Speci men Type: BLOOD SPECIMENOrdering Facility: [facility] Address: [address] [place] [address] Performed By: #### 5 7021-8 ####[facility] MILLTOWNCLIA [id number] [place] [address] [place] Nucleated RBC (Bld) [#/Vol] 10*3/uL Normal <0.01 [facility] Comment on above: Order Comment: Speci men Type: BLOOD SPECIMENOrdering Facility: [facility] Address: [address] [place] [address] Performed By: #### 5 7021-8 ####[facility] [id number] [place] [address] [place] Nucleated RBC/100 WBC (Bld) [Ratio] 0.0 /100 WBC Normal [facility] Comment on above: Order Comment: Speci men Type: BLOOD SPECIMENOrdering Facility: [facility] Address: [address] [place] [address] Performed By: #### 5 7021-8 ####[facility] [id number] [place] [address] [place] Platelet mean volume (Bld) [Entitic vol] 9.8 fL Normal 9.0-12.7 [facility] Comment on above: Order Comment: Speci men Type: BLOOD SPECIMENOrdering Facility: [facility] Address: [address] [place] [address] Performed By: #### 5 7021-8 ####[facility] [id number] [place] [address] [place] Platelets (Bld) [#/Vol] 183 10*3/uL Normal 150-400 [facility] Comment on above: Order Comment: Speci men Type: BLOOD SPECIMENOrdering Facility: [facility] Address: [address] [place] [address] Performed By: #### 5 7021-8 ####[facility] [id number] [place] [address] [place] RBC (Bld) [#/Vol] 5.48 10*6/uL Normal 4.20-6.00 [facility] Comment on above: Order Comment: Speci men Type: BLOOD SPECIMENOrdering Facility: [facility] Address: [address] [place] [address] Performed By: #### 5 7021-8 ####[facility] [id number] [place] [address] [place] WBC (Bld) [#/Vol] 5.96 10*3/uL Normal 3.70-11.00 [facility] Comment on above: Order Comment: Speci men Type: BLOOD SPECIMENOrdering Facility: [facility] Address: [address] [place] [address] Performed By: #### 5 7021-8 ####[facility] [id number] [place] [address] [place] Comprehensive metabolic 2000 panelon 04-26-2024 Albumin [Mass/Vol] 3.8 g/dL Low 3.9-4.9 [facility] Comment on above: Order Comment: Speci men Type: BLOOD SPECIMENOrdering Facility: [facility] Address: [address] [place] [address] Performed By: #### 2 4323-8 ####[facility] [id number] [place] [address] [place] ALP [Catalytic activity/Vol] 81 U/L Normal 38-113 [facility] Comment on above: Order Comment: Speci men Type: BLOOD SPECIMENOrdering Facility: [facility] Address: [address] [place] [address] Performed By: #### 2 4323-8 ####[facility] [id number] [place] [address] [place] ALT [Catalytic activity/Vol] 9 U/L Low 10-54 [facility] Comment on above: Order Comment: Speci men Type: BLOOD SPECIMENOrdering Facility: [facility] Address: [address] [place] [address] Performed By: #### 2 4323-8 ####[facility]LI [id number] [place] [address] [place] Anion gap [Moles/Vol] 8 mmol/L Normal 8-15 [facility] Comment on above: Order Comment: Speci men Type: BLOOD SPECIMENOrdering Facility: [facility] Address: [address] [place] [address] Performed By: #### 2 4323-8 ####[facility] SABICLIFTONA [id number] [place] [address] [place] AST [Catalytic activity/Vol] 8 U/L Low 14-40 [facility] Comment on above: Order Comment: Speci men Type: BLOOD SPECIMENOrdering Facility: [facility] Address: [address] [place] [address] Performed By: #### 2 4323-8 ####[facility] INSTITUTENCSAMA [id number] [place] [address] [place] Bilirubin [Mass/Vol] 0.5 mg/dL Normal 0.2-1.3 [facility] Comment on above: Order Comment: Speci men Type: BLOOD SPECIMENOrdering Facility: [facility] Address: [address] [place] [address] Performed By: #### 2 4323-8 ####[facility] CENTERSAMA [id number] [place] [address] [place] Calcium [Mass/Vol] 9.1 mg/dL Normal 8.5-10.2 [facility] Comment on above: Order Comment: Speci men Type: BLOOD SPECIMENOrdering Facility: [facility] Address: [address] [place] [address] Performed By: #### 2 4323-8 ####[facility] RES[facility] INSTITUTENCLIA [id number] [place] [address] [place] Chloride [Moles/Vol] 99 mmol/L Normal 98-107 [facility] Comment on above: Order Comment: Speci men Type: BLOOD SPECIMENOrdering Facility: [facility] Address: [address] [place] [address] Performed By: #### 2 4323-8 ####[facility]ITALWNCLIA [id number] [place] [address] [place] CO2 [Moles/Vol] 29 mmol/L Normal 22-30 [facility] Comment on above: Order Comment: Speci men Type: BLOOD SPECIMENOrdering Facility: [facility] Address: [address] [place] [address] Performed By: #### 2 4323-8 ####[facility] [id number] [place] [address] [place] Creatinine [Mass/Vol] 0.86 mg/dL Normal 0.73-1.22 [facility] Comment on above: Order Comment: Speci men Type: BLOOD SPECIMENOrdering Facility: [facility] Address: [address] [place] [address] Performed By: #### 2 4323-8 ####[facility] INSTITUTENCLIA [id number] [place] [address] [place] Creatinine and Glomerular filtration rate.predicted panel (S/P/Bld) 92 mL/min/1.73m??? Normal >=60 [facility] Comment on above: Order Comment: Speci men Type: BLOOD SPECIMENOrdering Facility: [facility] Address: [address] [place] [address] Result Comment: Aleyda mated Glomerular Filtration Rate [...] reflect actual GFR. Performed By: #### 2 4323-8 ####[facility] SABIRIVERSIDENCLIA [id number] [place] [address] [place] Glucose [Mass/Vol] 129 mg/dL High 74-99 [facility] Comment on above: Order Comment: Speci men Type: BLOOD SPECIMENOrdering Facility: [facility] Address: [address] [place], [place] [id number] Result Comment: The [place] [employer] Association (ADA) provides guidance for cutoff [...] Standards of Medical Care in Diabetes 2016, [place] [employer]. Diabetes Care. 2016.39(Suppl 1). Performed By: #### 2 4323-8 ####[facility] [id number] [place] [address] [place] Potassium [Moles/Vol] 4.0 mmol/L Normal 3.7-5.1 [facility] Comment on above: Order Comment: Speci men Type: BLOOD SPECIMENOrdering Facility: [facility] Address: [address] [place], [place] [address] Performed By: #### 2 4323-8 ####[facility] [id number] [place] [address] [place] Protein [Mass/Vol] 6.0 g/dL Low 6.3-8.0 [facility] Comment on above: Order Comment: Speci men Type: BLOOD SPECIMENOrdering Facility: [facility] Address: [address] [place] [address] Performed By: #### 2 4323-8 ####[facility] [id number] [place] [address] [place] Sodium [Moles/Vol] 136 mmol/L Normal 136-144 [facility] Comment on above: Order Comment: Speci men Type: BLOOD SPECIMENOrdering Facility: [facility] Address: [address] [place], [place] [address] Performed By: #### 2 4323-8 ####[facility] CENTERJOSEPH [id number] [place] [address] [place] Urea nitrogen [Mass/Vol] 20 mg/dL Normal 9-24 [facility] Comment on above: Order Comment: Speci men Type: BLOOD SPECIMENOrdering Facility: [facility] Address: [address] [place] [place] [address] Performed By: #### 2 4323-8 ####[facility] [id number] [address] [place] IMMUNOFIXATION SCREEN, SERUM on 04-26-2024 MPA RESULT No M protein is identified. Normal No M protein is identified. [facility] Comment on above: Order Comment: Speci men Type: BLOOD SPECIMENOrdering Facility: [facility] Address: [address] [place] [address] Performed By: #### I FES ####[facility] LABCLIA [id number] [place] [address] [place] STAFF REVIEW (MPA) Reviewed by Vandana patel MD [facility] Comment on above: Order Comment: Speci men Type: BLOOD SPECIMENOrdering Facility: [facility] Address: [address] [place] [address] Performed By: #### I FES ####[facility] LABCLIA [id number] [address] [address] [place] IMMUNOGLOBULINS,IGG,IGA,IGMo n 04-26-2024 IgA [Mass/Vol] 72 mg/dL Normal 70-400 [facility] Comment on above: Order Comment: Speci men Type: BLOOD SPECIMENOrdering Facility: [facility] Address: [address] [place] [address] Performed By: #### S ERIMM ####[facility] LABCLIA [id number] [place] [address] [place] IgG [Mass/Vol] 627 mg/dL Low 700-1600 [facility] Comment on above: Order Comment: Speci men Type: BLOOD SPECIMENOrdering Facility: [facility] Address: [address] [place] [address] Performed By: #### S ERIMM ####[facility] LABCLIA [id number] [place] [address] [place] IgM [Mass/Vol] 49 mg/dL Normal 40-230 [facility] Comment on above: Order Comment: Speci men Type: BLOOD SPECIMENOrdering Facility: [facility] Address: [address] [place] [address] Performed By: #### S ERIMM ####[facility] LABCLIA [id number] [place] [address] [place] KAPPA/PHAN,FREE,SERon 2023 Immunoglobulin light chains.kappa.free (S) [Mass/Vol] 18.5 mg/L Normal 3.3-19.4 [facility] Comment on above: Order Comment: Speci men Type: BLOOD SPECIMENOrdering Facility: [facility] Address: [address] [place] [address] Result Comment: Rare ly, increased serum free light chains levels may not be detected or accurately quantified due to prozone phenomenon or in high viscosity samples using this immunoturbidimetric assay. Correlation with other laboratory results and clinical findings is recommended. The [place] Free Light Chain was performed using the Binding Site Optilite immunoturbidimetric method. Result obtained with different assay methods or kits cannot be used interchangeably. Performed By: #### K LFRS ####[facility] LABCLIA [id number] [place] [address] [place] Immunoglobulin light chains.kappa/Immunog lobulin light chains.lambda (S) [Mass ratio] 1.17 Normal 0.26-1.65 [facility] Comment on above: Order Comment: Speci men Type: BLOOD SPECIMENOrdering Facility: [facility] Address: [address] [place] [address] Performed By: #### K LFRS ####[facility] LABCLIA [id number] [place] [address] [place] Immunoglobulin light chains.lambda.free [Mass/Vol] 15.8 mg/L Normal 5.7-26.3 [facility] Comment on above: Order Comment: Speci men Type: BLOOD SPECIMENOrdering Facility: [facility] Address: [address] [place] [address] Result Comment: Rare ly, increased serum free [...] used interchangeably. Performed By: #### K LFRS ####[facility] LABCLIA [id number] [place] [address] [place] PROTEIN ELECTROPHORESIS SERU M (P)on 04-26-2024 Albumin [Mass/Vol] 3.39 g/dL Low 3.43-5.41 [facility] Comment on above: Order Comment: Speci men Type: BLOOD SPECIMENOrdering Facility: [facility] Address: [address] [place] [address] Performed By: #### L [id number] ####[facility] LABCLIA [id number] [place] [id number] [place] Alpha 1 globulin Elph [Mass/Vol] 0.33 g/dL Normal 0.18-0.43 [facility] Comment on above: Order Comment: Speci men Type: BLOOD SPECIMENOrdering Facility: [facility] Address: [address] [place] [address] Performed By: #### L [id number] ####[facility] LABCLIA [id number] [place] [address] [place] Alpha 2 globulin Elph [Mass/Vol] 0.77 g/dL Normal 0.42-0.98 [facility] Comment on above: Order Comment: Speci men Type: BLOOD SPECIMENOrdering Facility: [facility] Address: [address] [place] [address] Performed By: #### L [id number] ####[facility] LABCLIA [id number] [place] [address] [place] Beta globulin Elph [Mass/Vol] 0.65 g/dL Normal 0.61-1.17 [facility] Comment on above: Order Comment: Speci men Type: BLOOD SPECIMENOrdering Facility: [facility] Address: [address] [place] [address] Performed By: #### L [id number] ####[facility] LABIA [id number] [place] [address] [place] Gamma globulin Elph [Mass/Vol] 0.47 g/dL Low 0.53-1.51 [facility] Comment on above: Order Comment: Speci men Type: BLOOD SPECIMENOrdering Facility: [facility] Address: [address] [place] [address] Performed By: #### L [id number] ####[facility] LABCLIA [id number] [place] [address] [place] INTERPRETATION COMMENT FOR PROTEIN ELECTROPHORESIS Hypogammaglobulinemia is present, which can be seen in the setting of monoclonal gammopathy. If clinically indicated, monoclonal protein analysis and serum free light chain analysis are suggested to evaluate further for monoclonal gammopathy. Normal [facility] Comment on above: Order Comment: Speci men Type: BLOOD SPECIMENOrdering Facility: [facility] Address: [address] [place] [address] Performed By: #### L [id number] ####[facility] LABCLIA [id number] [place] [address] [place] M-PROTEIN LOCATION Normal [facility] Comment on above: Order Comment: Speci men Type: BLOOD SPECIMENOrdering Facility: [facility] Address: [address] [place] [address] Result Comment: Not Applicable. Performed By: #### L [id number] ####[facility] LABCLIA [id number] [place] [address] [place] Protein Fractions [Interp] No definitive M protein is identified on protein electrophoresis. Normal No definitive M protein is identified on protein electrophore sis. [facility] Comment on above: Order Comment: Speci men Type: BLOOD SPECIMENOrdering Facility: [facility] Address: [address] [place] [address] Performed By: #### L [id number] ####[facility] LABCLIA [id number] [place] [address] [place] Protein.monoclonal Elph [Mass/Vol] 0.00 g/dL Normal <=0.00 [facility] Comment on above: Order Comment: Speci men Type: BLOOD SPECIMENOrdering Facility: [facility] Address: [address] [place] [address] Performed By: #### L [id number] ####[facility] LABCLIA [id number] [place] [address] [place] SPE STAFF REVIEW Reviewed by Vandana patel MD Normal [facility] Comment on above: Order Comment: Speci men Type: BLOOD SPECIMENOrdering Facility: [facility] Address: [address] [place] [address] Performed By: #### L [id number] ####[facility] LABCLIA [id number] [place] [address] [place] Prot SerPl-mCncon 04-26-2024 Protein [Mass/Vol] 5.6 g/dL Low 6.3-8.0 [facility] Comment on above: Order Comment: Speci men Type: BLOOD SPECIMENOrdering Facility: [facility] Address: [address] [place] [address] Performed By: #### 2 885-2 ####[facility] LABCLIA [id number] [id number] [address] [place] PT D/C Summary (1)on 024 PT D/C Summary (1) [facility] Physical Therapy [address] [place] [address] / REHABILITATION SERVICES DISCHARGE SUMMARY MR#: [id number] Acct: [id number] Name: RONNIE YARBROUGH Rep #: [id number] : 1950 73 From: Cuhck Veliz DPT Referring Dr.: LEO Rivera Status: REG RCR Insurance: [facility] SELF PAY INSURANCE Discharge Summary D/C summary: [...] LTG: Pt. to have improved FGA to indicated increased stability in stance. Goal Progress: [...] please feel free to call me at [phone]. Thank you for the referral of this patient. Sincerely, Chuck Veliz, DPT Balance/Gait/Functional tests Balance/Special Test Scores Functional Gait Assessment Score: 24 % Disability: 20.0000 Oswestry Low Back Score: 12 Dizziness Score: 22 TUG Test Time Seconds: 10.3 Tug Test: <20 sec.=mostly independent Improvement % Improvement: 80 04/25/24 0733 CC: DENTAL EQUIPMENT MECHANICSina Rivera; Dr. Ovidio Vincent MD CLS Signed Normal [facility] Initial Evaluation (2) - PTo n 04-22-2024 Initial Evaluation (2) - PT [facility] Physical Therapy [facility] [address] [place] [address] [address] [place] [address] / REHABILITATION SERVICES INITIAL EVALUATION MR#: [id number] Acct: [id number] Name: RONNIE YARBROUGH Rep #: [id number] : 1950 73 From: Daniel Gupta DPT, OCS, CSCS Referring Dr.: LEO Warner Status: REG RCR Insurance: [facility] SELF PAY INSURANCE Patient's Visit Information Visit [...] been getting this dizzy for 3 yrs. [id number] is Ok and he sleeps flat in [...] this weekend and gone 3 weeks, to [place]. 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 No falls lately and [...] to be FAXED BACK to us at [phone] for Medicare purposes. For Medicare only, by signing this I certify the plan of care. Please let me know if there are questions or concerns regarding this plan of care. Physician Signature: ___Date: 04/22/24 0744 CC: LEO Rivera; Dr. Ovidio Vincent MD JUSTIN Signed Normal [facility] 25([place])D3 [facility] 2023 25-hydroxyvitamin D3 [Mass/Vol] 34.7 ng/mL Normal 31.0-80.0 [facility] Comment on above: Order Comment: Speci men Type: BLOOD SPECIMENOrdering Facility: [facility] Address: [address] [place] [address] Result Comment: Clas sification of 25 [place] Vitamin D status: Deficiency/Insufficiency: < or = 30 ng/ml. Sufficiency/Optimal Levels: 31-80 ng/mL Toxicity: > 100 ng/mL. Test performed by chemiluminescent immunoassay. Performed By: #### 1 989-3 ####[facility] LABCLIA [id number] [place] [address] [place] ALBUMIN/CREATININE RATIO, UR INEon 04-16-2024 Albumin DL <= 20 mg/L (U) [Mass/Vol] 17.3 mg/L Normal [facility] Comment on above: Order Comment: Speci men Type: URINE SPECIMENOrdering Facility: [facility] Address: [address] [place] [address] Performed By: #### U ACR ####[facility] LABIA [id number] [place] [address] [place] Albumin/Creatinine (U) [Mass ratio] 14 mg/g Normal <30 [facility] Comment on above: Order Comment: Speci men Type: URINE SPECIMENOrdering Facility: [facility] Address: [address] [place] [address] Result Comment: Adul t Male and Female Nephrotic Criteria: <30 mg/g is considered normal to mildly increased 30-300 mg/g is considered moderately increased >300 mg/g is considered severely increased KDIGO. (2013). KDIGO 2012 Clinical Practice Guideline for the Evaluation and Management of Chronic Kidney Disease. Official Journal of the International Society of Nephrology, 3(1), 1-150. Performed By: #### U ACR ####[facility] LABIA [id number] [place] [address] [place] Creatinine (U) [Mass/Vol] 122.5 mg/dL Normal 20.0-300.0 [facility] Comment on above: Order Comment: Speci men Type: URINE SPECIMENOrdering Facility: [facility] Address: [address] [place], [place] [address] Performed By: #### U ACR ####[facility] LABCLIA [id number] [place] [address] [place] CBC W Auto Differential pane l (Bld)on 04-16-2024 Basophils (Bld) [#/Vol] 10*3/uL Normal <0.11 [facility] Comment on above: Order Comment: Speci men Type: BLOOD SPECIMENOrdering Facility: [facility] Address: [address] [place] [address] Performed By: #### 5 7021-8 ####[facility] LABCLIA [id number] [place] [address] [place] Basophils/100 WBC (Bld) 0.1 % Normal [facility] Comment on above: Order Comment: Speci men Type: BLOOD SPECIMENOrdering Facility: [facility] Address: [address] [place] [address] Performed By: #### 5 7021-8 ####[facility] LABCLIA [id number] [place] [address] [place] Differential cell count method Nom (Bld) Auto Normal [facility] Comment on above: Order Comment: Speci men Type: BLOOD SPECIMENOrdering Facility: [facility] Address: [address] [place] [address] Performed By: #### 5 7021-8 ####[facility] LABCLIA [id number] [place] [address] [place] Eosinophils (Bld) [#/Vol] 10*3/uL Normal <0.46 [facility] Comment on above: Order Comment: Speci men Type: BLOOD SPECIMENOrdering Facility: [facility] Address: [address] [place] [address] Performed By: #### 5 7021-8 ####[facility] LABCLIA [id number] [place] [address] [place] Eosinophils/100 WBC (Bld) 0.2 % Normal [facility] Comment on above: Order Comment: Speci men Type: BLOOD SPECIMENOrdering Facility: [facility] Address: [address] [place] [address] Performed By: #### 5 7021-8 ####[facility] LABCLIA [id number] [place] [address] [place] Erythrocyte distribution width (RBC) [Ratio] 17.4 % High 11.5-15.0 [facility] Comment on above: Order Comment: Speci men Type: BLOOD SPECIMENOrdering Facility: [facility] Address: [address] [place] [address] Performed By: #### 5 7021-8 ####[facility] LABCLIA [id number] [place] [address] [place] Hematocrit (Bld) [Volume fraction] 46.8 % Normal 39.0-51.0 [facility] Comment on above: Order Comment: Speci men Type: BLOOD SPECIMENOrdering Facility: [facility] Address: [address] [place] [address] Performed By: #### 5 7021-8 ####[facility] LABCLIA [id number] [place] [address] [place] Hemoglobin (Bld) [Mass/Vol] 14.4 g/dL Normal 13.0-17.0 [facility] Comment on above: Order Comment: Speci men Type: BLOOD SPECIMENOrdering Facility: [facility] Address: [address] [place] [address] Performed By: #### 5 7021-8 ####[facility] LABCLIA [id number] [place] [address] [place] Immature granulocytes (Bld) [#/Vol] 0.06 10*3/uL Normal <0.10 [facility] Comment on above: Order Comment: Speci men Type: BLOOD SPECIMENOrdering Facility: [facility] Address: [address] [place] [address] Performed By: #### 5 7021-8 ####[facility] LABCLIA [id number] [place] [address] [place] Immature granulocytes/100 WBC (Bld) 0.7 % Normal [facility] Comment on above: Order Comment: Speci men Type: BLOOD SPECIMENOrdering Facility: [facility] Address: [address] [place] [address] Performed By: #### 5 7021-8 ####[facility] LABCLIA [id number] [place] [address] [place] Lymphocytes (Bld) [#/Vol] 0.87 10*3/uL Low 1.00-4.00 [facility] Comment on above: Order Comment: Speci men Type: BLOOD SPECIMENOrdering Facility: [facility] Address: [address] [place] [address] Performed By: #### 5 7021-8 ####[facility] LABIA [id number] [place] [address] [place] Lymphocytes/100 WBC (Bld) 9.8 % Normal [facility] Comment on above: Order Comment: Speci men Type: BLOOD SPECIMENOrdering Facility: [facility] Address: [address] [place] [address] Performed By: #### 5 7021-8 ####[facility] LABCLIA [id number] [place] [address] [place] MCH (RBC) [Entitic mass] 25.6 pg Low 26.0-34.0 [facility] Comment on above: Order Comment: Speci men Type: BLOOD SPECIMENOrdering Facility: [facility] Address: [address] [place] [address] Performed By: #### 5 7021-8 ####[facility] LABCLIA [id number] [place] [address] [place] MCHC (RBC) [Mass/Vol] 30.8 g/dL Normal 30.5-36.0 [facility] Comment on above: Order Comment: Speci men Type: BLOOD SPECIMENOrdering Facility: [facility] Address: [address] [place] [address] Performed By: #### 5 7021-8 ####[facility] LABCLIA [id number] [place] [address] [place] MCV (RBC) [Entitic vol] 83.1 fL Normal 80.0-100.0 [facility] Comment on above: Order Comment: Speci men Type: BLOOD SPECIMENOrdering Facility: [facility] Address: [address] [place] [address] Performed By: #### 5 7021-8 ####[facility] LABCLIA [id number] [place] [address] [place] Monocytes (Bld) [#/Vol] 0.62 10*3/uL Normal <0.87 [facility] Comment on above: Order Comment: Speci men Type: BLOOD SPECIMENOrdering Facility: [facility] Address: [address] [place] [address] Performed By: #### 5 7021-8 ####[facility] LABIA [id number] [place] [address] [place] Monocytes/100 WBC (Bld) 7.0 % Normal [facility] Comment on above: Order Comment: Speci men Type: BLOOD SPECIMENOrdering Facility: [facility] Address: [address] [place] [address] Performed By: #### 5 7021-8 ####[facility] LABCLIA [id number] [place] [address] [place] Neutrophils (Bld) [#/Vol] 7.28 10*3/uL Normal 1.45-7.50 [facility] Comment on above: Order Comment: Speci men Type: BLOOD SPECIMENOrdering Facility: [facility] Address: [address] [place] [address] Performed By: #### 5 7021-8 ####[facility] LABCLIA [id number] [place] [address] [place] Neutrophils/100 WBC (Bld) 82.2 % Normal [facility] Comment on above: Order Comment: Speci men Type: BLOOD SPECIMENOrdering Facility: [facility] Address: [address] [place] [address] Performed By: #### 5 7021-8 ####[facility] LABIA [id number] [place] [address] [place] Nucleated RBC (Bld) [#/Vol] 10*3/uL Normal <0.01 [facility] Comment on above: Order Comment: Speci men Type: BLOOD SPECIMENOrdering Facility: [facility] Address: [address] [place] [address] Performed By: #### 5 7021-8 ####[facility] LABIA [id number] [place] [address] [place] Nucleated RBC/100 WBC (Bld) [Ratio] 0.0 /100 WBC Normal [facility] Comment on above: Order Comment: Speci men Type: BLOOD SPECIMENOrdering Facility: [facility] Address: [address] [place] [address] Performed By: #### 5 7021-8 ####[facility] LABIA [id number] [place] [address] [place] Platelet mean volume (Bld) [Entitic vol] 10.9 fL Normal 9.0-12.7 [facility] Comment on above: Order Comment: Speci men Type: BLOOD SPECIMENOrdering Facility: [facility] Address: [address] [place] [address] Performed By: #### 5 7021-8 ####[facility] LABCLIA [id number] [place] [address] [place] Platelets (Bld) [#/Vol] 181 10*3/uL Normal 150-400 [facility] Comment on above: Order Comment: Speci men Type: BLOOD SPECIMENOrdering Facility: [facility] Address: [address] [place] [address] Performed By: #### 5 7021-8 ####[facility] LABIA [id number] [place] [address] [place] RBC (Bld) [#/Vol] 5.63 10*6/uL Normal 4.20-6.00 [facility] Comment on above: Order Comment: Speci men Type: BLOOD SPECIMENOrdering Facility: [facility] Address: [address] [place] [address] Performed By: #### 5 7021-8 ####[facility] [id number] [place] [address] [place] WBC (Bld) [#/Vol] 8.86 10*3/uL Normal 3.70-11.00 [facility] Comment on above: Order Comment: Speci men Type: BLOOD SPECIMENOrdering Facility: [facility] Address: [address] [place] [address] Performed By: #### 5 7021-8 ####[facility] [id number] [place] [address] [place] CNOVon 04-16-2024 CNOV Office Visit (FAMPWS ) RONNIE YARBROUGH I ([id number]) 1950 M Date Time Provider Department 04/16/24 [...] for quite some time. Patient has seen [facility] and they decreased his Coreg [...] CM 5.7 High CM Patient see Ophthalmology [facility] last visit 09/2023 Paroxysmal atrial fibrillation (HCC) - ICD9: 427.31, ICD10: I48.0 - patient see [facility] last visit 02/2024 Patient sees pulmonary last visit 11/2023 Past medical history, appointments, medications, allergies reviewed. 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 Day: +12; Engrafted Protocol(s): 3422 1C Preparative regimen: melphalan Mobilization regimen: neupogen and plerixafor Stem cell source: apheresis CD34 cell dose (x10e6/kg): 5.14 Date of transplant: 06/15/2018 Bilateral leg edema 09/30/2022 Cancer of the skin, 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 Cervical spondylosis without myelopathy COPD (chronic obstructive pulmonary disease) ([facility]) 03/15/2021 Diabetic eye exam ([facility]) 09/09/2021 Last done 09/09/[address] Juve Reza Dilated aortic root ([facility]) 06/04/2023 Seeing [facility] Discoloration and thickening of nails both feet 10/06/2021 ED (erectile dysfunction) of organic origin 07/04/2022 Enlarged LA (left atrium) 06/04/2023 Seeing [facility] Essential hypertension 06/13/2018 -On lisinopril 10mg [...] find, Las (more content not included)... Normal [facility] CNPNon 04-16-2024 CNPN Telephone (MARIVELWS) RONNIE YARBROUGH I ([id number]) 1950 M Date Time Provider Department 04/16/24 RAMU ALANIS During your visit today, we recorded the following information about you: Ramu Alanis MA 04/16/2024 9:16 AM Signed Faxed Order Demo Last O/V To [facility] point. Ramu Alanis MA Allergies As of Date: 04/16/2024 Noted Allergy Reaction GABAPENTIN 06/24/2018 14 - Other: See Comments Comments: Depression/suicidal ideation Date Reviewed: 04/16/2024 Reviewed by: Ramu Alanis MA - Fully Assessed Reason for Visit: Appointment [186] Cmt: PT - [facility] Prescriptions as of 04/16/2024 - dulaglutide (TRULICITY) [...] two times a day with meals. Per [facility] - torsemide (DEMADEX) 20 mg [...] as needed for wheezing/shortness of breath. - ejiwmatuqtg-fmonkjdar-utwpaf er (TRELEGY ELLIPTA) 100-62.5-25 mcg inhalation powder [...] Medicare lizette (more content not included)... Normal [facility] Comprehensive metabolic 2000 panelon 04-16-2024 Albumin [Mass/Vol] 4.1 g/dL Normal 3.9-4.9 [facility] Comment on above: Order Comment: Speci men Type: BLOOD SPECIMENOrdering Facility: [facility] Address: [address] [place] [address] Performed By: #### 2 132-9, 58571-6, LIPKALA, ####[facility] LABIA [id number] [place] [address] [place] ALP [Catalytic activity/Vol] 77 U/L Normal 38-113 [facility] Comment on above: Order Comment: Speci men Type: BLOOD SPECIMENOrdering Facility: [facility] Address: [address] [place] [address] Performed By: #### 2 132-9, 63144-0, LIPNF, ####[facility] LABCLIA [id number] [place] [address] [place] ALT [Catalytic activity/Vol] 10 U/L Normal 10-54 [facility] Comment on above: Order Comment: Speci men Type: BLOOD SPECIMENOrdering Facility: [facility] Address: [address] [place] [address] Performed By: #### 2 132-9, 73056-0, LIPNF, ####[facility] LABCLIA [id number] [place] [address] [place] Anion gap [Moles/Vol] 12 mmol/L Normal 8-15 [facility] Comment on above: Order Comment: Speci men Type: BLOOD SPECIMENOrdering Facility: [facility] Address: [address] [place] [address] Performed By: #### 2 132-9, 14594-7, LIPNF, ####[facility] LABIA [id number] [place] [address] [place] AST [Catalytic activity/Vol] 12 U/L Low 14-40 [facility] Comment on above: Order Comment: Speci men Type: BLOOD SPECIMENOrdering Facility: [facility] Address: [address] [place] [address] Performed By: #### 2 132-9, 44107-3, LIPNF, ####[facility] LABCLIA [id number] [place] [address] [place] Bilirubin [Mass/Vol] 0.7 mg/dL Normal 0.2-1.3 [facility] Comment on above: Order Comment: Speci men Type: BLOOD SPECIMENOrdering Facility: [facility] Address: [address] [place] [address] Performed By: #### 2 132-9, 90773-9, LIPNF, ####[facility] LABIA [id number] [place] [address] [place] Calcium [Mass/Vol] 9.6 mg/dL Normal 8.5-10.2 [facility] Comment on above: Order Comment: Speci men Type: BLOOD SPECIMENOrdering Facility: [facility] Address: [address] [place] [address] Performed By: #### 2 132-9, 23848-6, LIPNF, 15343-1 ####[facility] LABCLIA [id number] [place] [address] [place] Chloride [Moles/Vol] 100 mmol/L Normal 98-107 [facility] Comment on above: Order Comment: Speci men Type: BLOOD SPECIMENOrdering Facility: [facility] Address: [address] [place] [address] Performed By: #### 2 132-9, 65629-1, LIPNF, 71767-5 ####[facility] LABIA [id number] [place] [address] [place] CO2 [Moles/Vol] 27 mmol/L Normal 22-30 [facility] Comment on above: Order Comment: Speci men Type: BLOOD SPECIMENOrdering Facility: [facility] Address: [address] [place] [address] Performed By: #### 2 132-9, 60883-2, LIPNF, 67191-4 ####[facility] LABIA [id number] [place] [address] [place] Creatinine [Mass/Vol] 0.88 mg/dL Normal 0.73-1.22 [facility] Comment on above: Order Comment: Speci men Type: BLOOD SPECIMENOrdering Facility: [facility] Address: [address] [place] [address] Performed By: #### 2 132-9, 72281-6, LIPNF, 07565-1 ####[facility] LABIA [id number] [place] [address] [place] Creatinine and Glomerular filtration rate.predicted panel (S/P/Bld) 91 mL/min/1.73m??? Normal >=60 [facility] Comment on above: Order Comment: Speci men Type: BLOOD SPECIMENOrdering Facility: [facility] Address: [address] [place] [address] Result Comment: Aleyda mated Glomerular Filtration Rate [...] reflect actual GFR. Performed By: #### 2 132-9, 80844-3, PRIYA, ####[facility] LABCLIA [id number] [place] [address] [place] Glucose [Mass/Vol] 118 mg/dL High 74-99 [facility] Comment on above: Order Comment: Speci men Type: BLOOD SPECIMENOrdering Facility: [facility] Address: [address] [place] [address] Result Comment: The [place] Diabetes Association (ADA) provides guidance for cutoff [...] Standards of Medical Care in Diabetes 2016, [place] Diabetes Association. Diabetes Care. 2016.39(Suppl 1). Performed By: #### 2 132-9, 26408-4, PRIYA, ####[facility] LABCLIA [id number] [place] [id number] [place] Potassium [Moles/Vol] 4.5 mmol/L Normal 3.7-5.1 [facility] Comment on above: Order Comment: Speci men Type: BLOOD SPECIMENOrdering Facility: [facility] Address: [address] [place] [address] Performed By: #### 2 132-9, 05915-1, LIPNF, ####[facility] LABCLIA [id number] [place] [id number] [place] Protein [Mass/Vol] 6.5 g/dL Normal 6.3-8.0 [facility] Comment on above: Order Comment: Speci men Type: BLOOD SPECIMENOrdering Facility: [facility] Address: [address] [place] [address] Performed By: #### 2 132-9, 37414-6, LIPNF, ####[facility] LABCLIA [id number] [place] [address] [place] Sodium [Moles/Vol] 139 mmol/L Normal 136-144 [facility] Comment on above: Order Comment: Speci men Type: BLOOD SPECIMENOrdering Facility: [facility] Address: [address] [place] [address] Performed By: #### 2 132-9, 13803-4, LIPNF, ####[facility] LABCLIA [id number] [place] [address] [place] Urea nitrogen [Mass/Vol] 21 mg/dL Normal 9-24 [facility] Comment on above: Order Comment: Speci men Type: BLOOD SPECIMENOrdering Facility: [facility] Address: [address] [place] [address] Performed By: #### 2 132-9, 76312-1, LIPNF, ####[facility] LABCLIA [id number] [address] [address] [place] HbA1c (Bld)on 04-16-2024 Average glucose Estimated from glycated hemoglobin (Bld) [Mass/Vol] 154 mg/dL Normal [facility] Comment on above: Order Comment: Speci men Type: BLOOD SPECIMENOrdering Facility: [facility] Address: [address] [place] [address] Result Comment: eAG: (Estimated average glucose) is a calculated value from HgbA1c and is petroleum products sales representative of the average blood glucose level in the last 2-3 month period. Performed By: #### 5 5454-3 ####[facility] LABCLIA [id number] [place] [address] [place] HbA1c (Bld) [Mass fraction] 7.0 % High 4.3-5.6 [facility] Comment on above: Order Comment: Jessi chen Type: BLOOD SPECIMENOrdering Facility: [facility] Address: [address] [place] [address] Result Comment: [place] Diabetes Association guidelines indicate that patients with HgbA1c in the range 5.7-6.4% are at increased risk for development of diabetes, and intervention by lifestyle modification may be beneficial. HgbA1c greater or equal to 6.5% is considered diagnostic of diabetes. Performed By: #### 5 5454-3 ####[facility] LABIA [id number] [place] [address] [place] LIPID PANEL, NONFASTINGon Cholesterol [Mass/Vol] 121 mg/dL Normal <200 [facility] Comment on above: Order Comment: Jessi chen Type: BLOOD SPECIMENOrdering Facility: [facility] Address: [address] [place] [address] Result Comment: <200 mg/dL, Desirable 200-239 mg/dL, Borderline high >239 mg/dL, High Performed By: #### 2 132-9, 98644-2, LIPNF, 76897-7 ####[facility] LABCLIA [id number] [place] [address] [place] HDL CHOLESTEROL, NF 41 mg/dL Normal >39 [facility] Comment on above: Order Comment: Jessi chen Type: BLOOD SPECIMENOrdering Facility: [facility] Address: [address] [place] [address] Result Comment: 40-5 9 mg/dL, Acceptable >59 mg/dL, High: Negative risk factor for coronary heart disease <40 mg/dL, Low: Positive risk factor for coronary heart disease Performed By: #### 2 132-9, 67038-9, LIPNF, 54262-4 ####[facility] LABCLIA [id number] [place] [address] [place] LDL CHOLESTEROL, NF 47 mg/dL Normal <100 [facility] Comment on above: Order Comment: Speci men Type: BLOOD SPECIMENOrdering Facility: [facility] Address: [address] [place] [address] Result Comment: <100 mg/dL, Optimal 100-129 mg/dL, Near optimal/above optimal 130-159 mg/dL, Borderline high 160-189 mg/dL, High >189 mg/dL, Very high Secondary prevention optimal LDL Cholesterol levels are recommended to be < 70 mg/dL Performed By: #### 2 132-9, 93860-5, LIPNF, 01676-6 ####[facility] LABCLIA [id number] [address] [place] LDL/HDL RATIO, NF 1.15 mg/dL Normal <2.54 [facility] Comment on above: Order Comment: Carlyi men Type: BLOOD SPECIMENOrdering Facility: [facility] Address: [address] [place] [address] Result Comment: Refe rence: 1. National Cholesterol Education Program ATP III Guideline At-A-Glance Quick Desk Reference: National Heart, Lung, and Blood [place]. National Institutes of Health. 2001: NIH Publication No. 01-3305. 2. An International Atherosclerosis Society position paper: global recommendations for the management of dyslipidemia: executive summary, Atherosclerosis. 2014: 232(2):410-413. Performed By: #### 2 132-9, 18177-4, LIPNF, 85595-2 ####[facility] LABCLIA [id number] [place] [address] [place] NON HDL CHOL, NF 80 mg/dL Normal <130 [facility] Comment on above: Order Comment: Carlyi men Type: BLOOD SPECIMENOrdering Facility: [facility] Address: [address] [place] [address] Result Comment: <130 mg/dL, Optimal 130-159 mg/dL, Near optimal/above optimal 160-189 mg/dL, Borderline high 190-219 mg/dL, High >219 mg/dL, Very high Secondary prevention optimal non HDL Cholesterol levels are recommended to be <100 mg/dL Performed By: #### 2 132-9, 33731-2, LIPNF, 15852-7 ####[facility] LABCLIA [id number] [place] [address] [place] T CHOL/HDL RATIO NF 2.95 mg/dL Normal <5.10 [facility] Comment on above: Order Comment: Speci men Type: BLOOD SPECIMENOrdering Facility: [facility] Address: [address] [place] [address] Performed By: #### 2 132-9, 51670-9, LIPNF, ####[facility] LABCLIA [id number] [place] [address] [place] TRIGLYCERIDES, NF 166 mg/dL High <150 [facility] Comment on above: Order Comment: Speci men Type: BLOOD SPECIMENOrdering Facility: [facility] Address: [address] [place] [address] Result Comment: <150 mg/dL, Normal 150-199 mg/dL, Borderline high 200-499 mg/dL, High >499 mg/dL, Very high Performed By: #### 2 132-9, 41593-9, LIPNF, 65521-3 ####[facility] LABCLIA [id number] [place] [address] [place] VLDL CHOLESTEROL, NF 33 mg/dL High <30 [facility] Comment on above: Order Comment: Speci men Type: BLOOD SPECIMENOrdering Facility: [facility] Address: [address] [place] [address] Performed By: #### 2 132-9, 78717-4, LIPNF, 03061-3 ####[facility] LABCLIA [id number] [place] [address] [place] Magnesium SerPl-ncon 04-16 Magnesium [Mass/Vol] 1.8 mg/dL Normal 1.7-2.3 [facility] Comment on above: Order Comment: Speci men Type: BLOOD SPECIMENOrdering Facility: [facility] Address: [address] [place] [address] Performed By: #### 2 132-9, 82595-2, LIPNF, 32153-5 ####[facility] LABIA [id number] [place] [address] [place] [facility] Prostate specific Ag [Mass/Vol] 0.17 ng/mL Normal <2.60 [facility] Comment on above: Order Comment: Speci men Type: BLOOD SPECIMENOrdering Facility: [facility] Address: [address] [place] [address] Result Comment: Tota l PSA test methodology used is the Electrochemiluminescence Immunoassay by [employer]. Total PSA values by differing methodologies cannot be interchanged. Performed By: #### 2 857-1 ####[facility] [id number] [place] [address] [place] Urinalysis complete panel (U )on 04-16-2024 Bacteria LM.HPF (Urine sed) [#/Area] Negative Normal Negative [facility] Comment on above: Order Comment: Speci men Type: URINE SPECIMENOrdering Facility: [facility] Address: [address] [place] [address] Performed By: #### 2 4356-8 ####[facility] LABIA [id number] [place] [address] [place] Bilirubin Ql (U) Negative Normal Negative [facility] Comment on above: Order Comment: Speci men Type: URINE SPECIMENOrdering Facility: [facility] Address: [address] [place] [address] Performed By: #### 2 4356-8 ####[facility] LABCLIA [id number] [place] [address] [place] Clarity (Unsp spec) Clear Normal Clear [facility] Comment on above: Order Comment: Speci men Type: URINE SPECIMENOrdering Facility: [facility] Address: [address] [place] [address] Performed By: #### 2 4356-8 ####[facility] LABCLIA [id number] [place] [address] [place] Color (U) Yellow Normal Yellow [facility] Comment on above: Order Comment: Speci men Type: URINE SPECIMENOrdering Facility: [facility] Address: [address] [place] [address] Performed By: #### 2 4356-8 ####[facility] LABCLIA [id number] [place] [address] [place] Epithelial cells LM.HPF (Urine sed) [#/Area] None Seen Normal [facility] Comment on above: Order Comment: Speci men Type: URINE SPECIMENOrdering Facility: [facility] Address: [address] [place] [address] Performed By: #### 2 4356-8 ####[facility] LABCLIA [id number] [place] [address] [place] Glucose Test strip (U) [Mass/Vol] 3+ Abnormal Negative [facility] Comment on above: Order Comment: Speci men Type: URINE SPECIMENOrdering Facility: [facility] Address: [address] [place], [place] [address] Performed By: #### 2 4356-8 ####[facility] LABCLIA [id number] [place] [address] [place] Hemoglobin Ql (U) Negative Normal Negative [facility] Comment on above: Order Comment: Speci men Type: URINE SPECIMENOrdering Facility: [facility] Address: [address] [place] [address] Performed By: #### 2 4356-8 ####[facility] LABCLIA [id number] [place] [address] [place] Hyaline casts (Urine sed) [#/Area] 0 /[LPF] Normal 0 /LPF [facility] Comment on above: Order Comment: Speci men Type: URINE SPECIMENOrdering Facility: [facility] Address: [address] [place] [address] Performed By: #### 2 4356-8 ####[facility] LABCLIA [id number] [place] [address] [place] Ketones Ql (U) Trace Abnormal Negative [facility] Comment on above: Order Comment: Speci men Type: URINE SPECIMENOrdering Facility: [facility] Address: [address] [place] [address] Performed By: #### 2 4356-8 ####[facility] LABCLIA [id number] [place] [address] [place] Leukocyte esterase Test strip Ql (U) Negative Normal Negative [facility] Comment on above: Order Comment: Speci men Type: URINE SPECIMENOrdering Facility: [facility] Address: [address] [place] [address] Performed By: #### 2 4356-8 ####[facility] LABCLIA [id number] [place] [address] [place] Nitrite Ql (U) Negative Normal Negative [facility] Comment on above: Order Comment: Speci men Type: URINE SPECIMENOrdering Facility: [facility] Address: [address] [place] [address] Performed By: #### 2 4356-8 ####[facility] LABCLIA [id number] [place] [address] [place] pH (U) 6.0 [pH] Normal <8.5 [facility] Comment on above: Order Comment: Speci men Type: URINE SPECIMENOrdering Facility: [facility] Address: [address] [place] [address] Performed By: #### 2 4356-8 ####[facility] [id number] [place] [address] [place] Protein (U) [Mass/Vol] Trace Abnormal Negative [facility] Comment on above: Order Comment: Speci men Type: URINE SPECIMENOrdering Facility: [facility] Address: [address] [place] [address] Performed By: #### 2 4356-8 ####[facility] [id number] [place] [address] [place] RBC LM.HPF (Urine sed) [#/Area] 0-2 /HPF Normal 0-2 /HPF [facility] Comment on above: Order Comment: Speci men Type: URINE SPECIMENOrdering Facility: [facility] Address: [address] [place] [address] Performed By: #### 2 4356-8 ####[facility] [id number] [place] [address] [place] Specific gravity (U) [Rel density] 1.032 High 1.005-1.030 [facility] Comment on above: Order Comment: Speci men Type: URINE SPECIMENOrdering Facility: [facility] Address: [address] [place] [address] Performed By: #### 2 4356-8 ####[facility] [id number] [place] [address] [place] Urobilinogen Ql (U) 0.2 EU/dL Normal 0.2-1.0 EU/dL [facility] Comment on above: Order Comment: Speci men Type: URINE SPECIMENOrdering Facility: [facility] Address: [address] [place] [address] Performed By: #### 2 4356-8 ####[facility] LABCLIA [id number] [place] [id number] [place] WBC LM.HPF (Urine sed) [#/Area] 0-5 /HPF Normal 0-5 /HPF [facility] Comment on above: Order Comment: Speci men Type: URINE SPECIMENOrdering Facility: [facility] Address: [address] [place] [address] Performed By: #### 2 4356-8 ####[facility] LABIA [id number] [address] [address] [place] Vit B12 [facility] 30-2 024 Cobalamin (Vitamin B12) [Mass/Vol] 465 pg/mL Normal 232-1245 [facility] Comment on above: Order Comment: Speci men Type: BLOOD SPECIMENOrdering Facility: [facility] Address: [address] [place] [address] Performed By: #### 2 132-9, 08655-4, LIPNF, 52309-9 ####[facility] LABIA [id number] [place] [address] [place] Re-Evaluation - PT (1)on Re-Evaluation - PT (1) [facility] Physical Therapy [facility] [address] [place] [address] [address] [place] [address] / REEVALUATION / MEDICARE RECERTIFICATION PHYSICAL THERAPY MR#: [id number] Acct: [id number] Name: RONNIE YARBROUGH Rep #: [id number] : 1950 73 From: Chuck Veliz DPT Referring DrAniceto: LEO Rivera Status:REG RC R Insurance: [employer] [facility] SELF PAY INSURANCE Re-Evaluation Intro: LEO Warner, [...] increased postural sway. No LOB noted. SGA: Pt. has much improved strength in RLE especially. I would like at this point in time to focus on balance and stability exercises in [facility]. Work on safety and dynamic movements in [...] LTG: Pt. to have improved FGA to indicated increased stability in stance. Goal Time [...] do not hesitate to contact me at [phone] by phone or if you have questions or concerns regarding this new plan of care! Sincerely, Chuck Veliz DPT 03/28/24 0729 CC: LEO Rivera; Dr. Ovidio Vincent MD CLS Signed For Medicare only, by signing this I certify the plan of care. Physicians Signature Date Normal [facility] EYE EXAM ESTABLISHED PTon GENE result received by fax from Dr. Juve Reza. Exam date 03/26/24. Result scanned and Health Maintenance updated. [facility] CNCOon 03-14-2024 CNCO Letter Text Normal [facility] 12 Lead EKG performed by [facility] on 03-06-2024 12 Lead EKG performed by [facility] [address] [place] [address] 12 Lead EKG performed by [facility] 03/06/24926 MR#: [id number] Acct: [id number] Name: RONNIE YARBROUGH Rep #: [id number] : 1950 73 From: Patsy Gamble MD Attending Dr: Dr. Patsy Gamble MD Status: DEP [facility] Ordering Dr: Patsy Gamble MD Date: 03/06/24 Location: [facility] Sex: M C Admitted: BMS/12 Lead EKG performed by [facility] ECG Report Interpretation Si nus Rhythm WITHIN NORMAL LIMITSElectronically signed on 10/14/2024 at 10:[address] Patsy Gamble [employer] Version 8610 10/14/24 1014 Date Patsy Gamble MD CC: Dr. Ovidio Vincent MD Date Dictated: 03/06/24926 Date Transcribed: 03/06/24926 Ems Driver: JELANI Signed Normal [facility] Cardiology Visit Reporton Cardiology Visit Report [facility] [address] [place], [place] [id number] OFFICE VISIT Date of Service: 03/06/24 MR#: [id number] Acct: [id number] Name: RONNIE YARBROUGH Rep #: [id number] : 1950 Provider: Dr. 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 Normal [facility] HEMOGLOBIN A1C (EXTERNAL)on 08-04-2023 HbA1c (Bld) [Mass fraction] 7.1 % Abnormal 0 - 5.7 % [facility] CBC W Auto Differential pane l (Bld)on 08-01-2023 Basophils (Bld) [#/Vol] <0.11 k/uL [facility] Basophils/100 WBC (Bld) 0.0 % [facility] Differential cell count method Nom (Bld) Auto [facility] Eosinophils (Bld) [#/Vol] 0.03 10*3/uL <0.46 k/uL [facility] Eosinophils/100 WBC (Bld) 0.4 % [facility] Erythrocyte distribution width (RBC) [Ratio] 16.3 % High 11.5 - 15.0 % [facility] Hematocrit (Bld) [Volume fraction] 48.9 % 39.0 - 51.0 % [facility] Hemoglobin (Bld) [Mass/Vol] 15.3 g/dL 13.0 - 17.0 g/dL [facility] Immature granulocytes (Bld) [#/Vol] 0.04 10*3/uL <0.10 k/uL [facility] Immature granulocytes/100 WBC (Bld) 0.6 % [facility] Lymphocytes (Bld) [#/Vol] 1.03 10*3/uL 1.00 - 4.00 k/uL [facility] Lymphocytes/100 WBC (Bld) 14.8 % [facility] MCH (RBC) [Entitic mass] 26.6 pg 26.0 - 34.0 pg [facility] MCHC (RBC) [Mass/Vol] 31.3 g/dL 30.5 - 36.0 g/dL [facility] MCV (RBC) [Entitic vol] 85.0 fL 80.0 - 100.0 fL [facility] Monocytes (Bld) [#/Vol] 0.42 10*3/uL <0.87 k/uL [facility] Monocytes/100 WBC (Bld) 6.0 % [facility] Neutrophils (Bld) [#/Vol] 5.43 10*3/uL 1.45 - 7.50 k/uL [facility] Neutrophils/100 WBC (Bld) 78.2 % [facility] Nucleated RBC (Bld) [#/Vol] <0.01 k/uL [facility] Nucleated RBC/100 WBC (Bld) [Ratio] 0.0 /100 WBC [facility] Platelet mean volume (Bld) [Entitic vol] 10.4 fL 9.0 - 12.7 fL [facility] Platelets (Bld) [#/Vol] 198 10*3/uL 150 - 400 k/uL [facility] RBC (Bld) [#/Vol] 5.75 10*6/uL 4.20 - 6.0 0 m/uL [facility] WBC (Bld) [#/Vol] 6.95 10*3/uL 3.70 - 11. 00 k/uL [facility] No Panel InformationOrdered By: Patsy Gamble on 05-02-2023 Thyroid Stimulating Hormone (TSH) 3.03 uIU/mL 0.358-3.74 [facility] HbA1c (Bld)on 03-30-2023 Average glucose Estimated from glycated hemoglobin (Bld) [Mass/Vol] 171 mg/dL [facility] HbA1c (Bld) [Mass fraction] 7.6 % High 4.3 - 5.6 % [facility] Basic metabolic 2000 panelon 02-17-2023 Anion gap [Moles/Vol] 14 mmol/L 9 - 18 mmol/L [facility] Calcium [Mass/Vol] 9.4 mg/dL 8.5 - 10. 2 mg/dL [facility] Chloride [Moles/Vol] 99 mmol/L 97 - 10 5 mmol/L [facility] CO2 [Moles/Vol] 27 mmol/L 22 - 30 mmol/L [facility] Creatinine [Mass/Vol] 1.03 mg/dL 0.73 - 1.22 mg/dL [facility] Estimated Glomerular Filtration Rate 78 mL/min/1.73m >=60 mL/min/1.73m [facility] Glucose [Mass/Vol] 140 mg/dL High 74 - 99 mg/dL [facility] Potassium [Moles/Vol] 4.5 mmol/L 3.7 - 5.1 mmol/L [facility] Sodium [Moles/Vol] 140 mmol/L 136 - 144 mmol/L [facility] Urea nitrogen [Mass/Vol] 26 mg/dL High 9 - 24 mg/dL [facility] NT PRO BNPon 02-17-2023 Natriuretic peptide.B prohormone N-Terminal [Mass/Vol] 149 pg/mL High <125 pg/mL [facility] US LEG VEIN DVT ALESSANDRA VAS LABo n 02-17-2023 [facility] Absolute lymphocyte countOrd ered By: Dr. Coburn on 02-10-2023 Lymphocytes Auto (Unsp spec) [#/Vol] 0.64 10*3/uL 0.83-4.51 [facility] Basophil percentageOrdered B y: Dr. Coburn on 02-10-2023 Basophils/100 WBC (Bld) 0.3 % 0-1 [facility] Chloride [Moles/Vol] 106 mmol/L 98-107 [facility] Eosinophils/100 WBC (Bld) 0.8 % 0-5 [facility] Glucose [Mass/Vol] 148 mg/dL 74-106 [facility] Comment on above: Fasting Glucose resu lt greater than or equal to 126 mg/dL suggests DIABETES MELLITUS per A.D.A. criteria. Neutrophils (Bld) [#/Vol] 3.0 10*3/uL 2.0-7.7 [facility] Neutrophils/100 WBC (Bld) 73.8 % 47-70 [facility] Potassium [Moles/Vol] 4.4 mmol/L 3.5-5.1 [facility] Sodium [Moles/Vol] 141 mmol/L 136-145 [facility] WBC (Bld) [#/Vol] 4.0 10*3/uL 4.4-11.0 [facility] Blood erythrocytes count (nu mber/volume)Ordered By: Dr. Coburn on 02-10-2023 RBC (Bld) [#/Vol] 4.97 10*6/uL 4.6-6.2 [facility] Blood hemoglobin measurement (mass/volume)Ordered By: Dr. Coburn on 02-10-2023 Hemoglobin (Bld) [Mass/Vol] 13.9 g/dL 13.0-16.5 [facility] Blood lymphocytes/100 leukoc ytesOrdered By: Dr. Coburn on 02-10-2023 Lymphocytes/100 WBC (Bld) 16.0 % 19-41 [facility] Blood monocytes/100 leukocyt esOrdered By: Dr. Coburn on 02-10-2023 Monocytes/100 WBC (Bld) 8.3 % 0-10 [facility] Blood platelet mean volumeOr dered By: Dr. Coburn on 02-10-2023 Platelet mean volume (Bld) [Entitic vol] 9.9 fL 6.2-12.0 [facility] Determination of erythrocyte mean corpuscular volume (MCV)Ordered By: Dr. Coburn on 02-10-2023 MCV (RBC) [Entitic vol] 88.5 fL 80-94 [facility] Hematocrit Auto (Bld) [Volum e fraction]Ordered By: Dr. Coburn on 02-10-2023 Hematocrit (Bld) [Volume fraction] 44.0 % 40-54 [facility] Laboratory - Chemistry and C hemistry - challengeOrdered By: Dr. Coburn on 02-10-2023 CO2 [Moles/Vol] 28.0 mmol/L 21.0-32.0 [facility] Magnesium [Mass/Vol] 1.5 mg/dL 1.6-2.6 [facility] Natriuretic peptide B (Bld) [Mass/Vol] 106.1 pg/mL 0-100 [facility] Urea nitrogen/Creatinine [Mass ratio] 24.5 mg/mg 10-20 [facility] Laboratory - Hematology and Cell countsOrdered By: Dr. Coburn on 02-10-2023 Erythrocyte distribution width (RBC) [Entitic vol] 52.9 fL 35.1-43.9 [facility] Erythrocyte distribution width (RBC) [Ratio] 16.4 % 11.6-14.6 [facility] Immature granulocytes/100 WBC (Bld) 0.800 % 0.0-0.9 [facility] Comment on above: IG% - Immature Granu locytes (promyelocytes, myelocytes and metamyelocytes) > 1% indicates that a LEFT SHIFT is Present. MCH (RBC) [Entitic mass] 28.0 pg 27.0-32.0 [facility] Nucleated RBC/100 WBC (Bld) [Ratio] 0 % 0-5 [facility] MCHC Auto (RBC) [Mass/Vol]Or dered By: Dr. Coburn on 02-10-2023 MCHC (RBC) [Mass/Vol] 31.6 g/dL 32-36 [facility] No Panel InformationOrdered By: Dr. Coburn on 02-10-2023 Troponin I High Sensitivity 22 pg/mL 3.0-78.0 [facility] Comment on above: Please Note: New Td t Units and Gender Specific Reference Ranges. For more information see Policy Stat Procedure [place] High Sensitivity Troponin (TNIH) and attachments. Estimated Creatinine Clearance Calc 63.92 ml/min [facility] Estimated GFR (MDRD) Amer 88 mL/min >60 [facility] Comment on above: GFR Calc Estimated GFR (MDRD) Non-Af Amer 73 mL/min >60 [facility] Comment on above: Non- GFR Calc Platelets bldOrdered By: Dr. Coburn on 02-10-2023 Platelets (Bld) [#/Vol] 184 10*3/uL 150-450 [facility] Serum or plasma calcium ernst urement (mass/volume)Ordered By: Dr. Coburn on 02-10-2023 Calcium [Mass/Vol] 8.9 mg/dL 8.5-10.1 [facility] Serum or plasma creatinine m easurement (mass/volume)Ordered By: Dr. Coburn on 02-10-2023 Creatinine [Mass/Vol] 1.06 mg/dL 0.70-1.30 [facility] Comment on above: The validity of the calculated GFR & GFRAA in patients over 70 years has not been determined. Clinical correlation is essential. Serum or plasma urea nitroge n measurement (mass/volume)Ordered By: Dr. Coburn on 02-10-2023 Urea nitrogen [Mass/Vol] 26 mg/dL 7-18 [facility] Thin prep Papanicolaou smear with manual screeningOrdered By: Dr. Coburn on 02-10-2023 Thin prep Papanicolaou smear with manual screening 7 5-15 [facility] Glucose Glucometer (BldC) [M ass/Vol]Ordered By: Dr. Davila on 01-14-2023 Glucose [Mass/Vol] 136 mg/dL 74-106 [facility] [place] Comment on above: MANAGEMENT OF PATIEN T CARE PER NURSING PROTOCOL Absolute lymphocyte countOrd ered By: Dr. Davila on 01-13-2023 Lymphocytes Auto (Unsp spec) [#/Vol] 0.75 10*3/uL 0.83-4.51 [facility] Basophil percentageOrdered B y: Dr. Davila on 01-13-2023 Basophils/100 WBC (Bld) 0.5 % 0-1 [facility] Chloride [Moles/Vol] 106 mmol/L 98-107 [facility] Eosinophils/100 WBC (Bld) 0.7 % 0-5 [facility] Glucose [Mass/Vol] 122 mg/dL 74-106 [facility] Comment on above: Fasting Glucose resu lt from 100 to 125 mg/dL suggests IMPAIRED HOMEOSTASIS per A.D.A. criteria. Neutrophils (Bld) [#/Vol] 3.0 10*3/uL 2.0-7.7 [facility] Neutrophils/100 WBC (Bld) 70.8 % 47-70 [facility] Potassium [Moles/Vol] 4.8 mmol/L 3.5-5.1 [facility] Sodium [Moles/Vol] 137 mmol/L 136-145 [facility] WBC (Bld) [#/Vol] 4.3 10*3/uL 4.4-11.0 [facility] Blood erythrocytes count (nu mber/volume)Ordered By: Dr. Davila on 01-13-2023 RBC (Bld) [#/Vol] 4.91 10*6/uL 4.6-6.2 [facility] Blood hemoglobin measurement (mass/volume)Ordered By: Dr. Davila on 01-13-2023 Hemoglobin (Bld) [Mass/Vol] 13.9 g/dL 13.0-16.5 [facility] Blood lymphocytes/100 leukoc ytesOrdered By: Dr. Davila on 01-13-2023 Lymphocytes/100 WBC (Bld) 17.5 % 19-41 [facility] Blood monocytes/100 leukocyt esOrdered By: Dr. Davila on 01-13-2023 Monocytes/100 WBC (Bld) 8.9 % 0-10 [facility] Blood platelet mean volumeOr dered By: Dr. Davila on 01-13-2023 Platelet mean volume (Bld) [Entitic vol] 9.7 fL 6.2-12.0 [facility] Determination of erythrocyte mean corpuscular volume (MCV)Ordered By: Dr. Davila on 01-13-2023 MCV (RBC) [Entitic vol] 88.2 fL 80-94 [facility] Hematocrit Auto (Bld) [Volum e fraction]Ordered By: Dr. Davila on 01-13-2023 Hematocrit (Bld) [Volume fraction] 43.3 % 40-54 [facility] Laboratory - Chemistry and C hemistry - challengeOrdered By: Dr. Davila on 01-13-2023 CO2 [Moles/Vol] 26.0 mmol/L 21.0-32.0 [facility] Urea nitrogen/Creatinine [Mass ratio] 19.3 mg/mg 10-20 [facility] Laboratory - Hematology and Cell countsOrdered By: Dr. Davila on 01-13-2023 Erythrocyte distribution width (RBC) [Entitic vol] 56.4 fL 35.1-43.9 [facility] Erythrocyte distribution width (RBC) [Ratio] 17.6 % 11.6-14.6 [facility] Immature granulocytes/100 WBC (Bld) 1.600 % 0.0-0.9 [facility] Comment on above: IG% - Immature Granu locytes (promyelocytes, myelocytes and metamyelocytes) > 1% indicates that a LEFT SHIFT is Present. MCH (RBC) [Entitic mass] 28.3 pg 27.0-32.0 [facility] Nucleated RBC/100 WBC (Bld) [Ratio] 0 % 0-5 [facility] MCHC Auto (RBC) [Mass/Vol]Or dered By: Dr. Davila on 01-13-2023 MCHC (RBC) [Mass/Vol] 32.1 g/dL 32-36 [facility] No Panel InformationOrdered By: Dr. Davila on 01-13-2023 Estimated Creatinine Clearance Calc 69.14 ml/min [facility] Estimated GFR (MDRD) Amer 96 mL/min >60 [facility] Comment on above: GFR Calc Estimated GFR (MDRD) Non-Af Amer 80 mL/min >60 [facility] Comment on above: Non- GFR Calc Platelets bldOrdered By: Dr. Davila on 01-13-2023 Platelets (Bld) [#/Vol] 141 10*3/uL 150-450 [facility] Serum or plasma calcium ernst urement (mass/volume)Ordered By: Dr. Davila on 01-13-2023 Calcium [Mass/Vol] 8.9 mg/dL 8.5-10.1 [facility] Serum or plasma creatinine m easurement (mass/volume)Ordered By: Dr. Davila on 01-13-2023 Creatinine [Mass/Vol] 0.98 mg/dL 0.70-1.30 [facility] Comment on above: The validity of the calculated GFR & GFRAA in patients over 70 years has not been determined. Clinical correlation is essential. Serum or plasma urea nitroge n measurement (mass/volume)Ordered By: Dr. Davila on 01-13-2023 Urea nitrogen [Mass/Vol] 19 mg/dL 7-18 [facility] Thin prep Papanicolaou smear with manual screeningOrdered By: Dr. Davila on 01-13-2023 Thin prep Papanicolaou smear with manual screening 5 5-15 [facility] COVID-19 virus antigen assay Ordered By: Shabbir Davila on 01-09-2023 SARS-CoV-2 (COVID-19) Ag IA.rapid Ql (Resp) [facility] COVID-19 virus antigen assay Ordered By: Dr. Davila on 01-09-2023 SARS-CoV-2 (COVID-19) Ag IA.rapid Ql (Resp) [facility] No Panel Informationon 12-19 [facility] VITAMIN D 25 HYDROXYon 12-19 25-hydroxyvitamin D3 [Mass/Vol] 39.0 ng/mL 31.0 - 80.0 ng/mL [facility] XR BONE SURVEY ROUTINEon XR BONE SURVEY [...] Severe LEFT glenohumeral joint space narrowing with [id number] contact. Bilateral widening of the scapholunate interval [...] obtained for further evaluation by clinical discretion. Ems Driver: ROBERTA Transcribe Date/Time: Nov 02 2022 8:37A Dictated by : RIMA HUGHES DO This examination was interpreted and the report reviewed and electronically signed by: RIMA HUGHES DO on Nov 02 2022 9:18AM EST [id number] Lumbar spine AP and Later al and obliqueon 10-05-2022 IMPRESSION: Postsurg ical and degenerative changes, as described. 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 Ems Driver: ROBETRA Transcribe Date/Time: Oct 05 2022 8:31A Dictated by : GATITO AGUILAR MD This examination was interpreted and the report reviewed and electronically signed by: GATITO AGUILAR MD on Oct 05 2022 8:36AM [facility] DIVISION OF RADIOLOGY * * *Final Report* [...] associated marginal spurring. DIVISION [facility] RADIOLOGY [facility] * * *Final Report* * [...] indeterminant compression of the T1 vertebral body. [facility] Transcribe Date/Time: Oct 05 2022 8:31A Dictated by : GATITO AGUILAR MD This examination was interpreted and the report reviewed and electronically signed by: GATITO AGUILAR MD on Oct 05 2022 8:36AM EST [facility] XR Lumbar spine AP and Later al and obliqueOrdered By: [facility] Provider on 10-05-2022 [facility] XR Lumbar spine AP and Later al and obliqueon 10-03-2022 Radiology Study observation (narrative) [facility] Absolute lymphocyte counton 12-28-2021 Lymphocytes Auto (Unsp spec) [#/Vol] 0.43 10*3/uL 0.83-4.51 [facility] Work Phone: Basophil percentageon 2021 Basophils/100 WBC (Bld) 0.2 % 0-1 [facility] Work Phone: Bilirubin [Mass/Vol] 0.50 mg/dL 0.20-1.00 [facility] Work Phone: Comment on above: For patients on eltr ombopag therapy, use of Dimension [place] TBIL is not recommended. Chloride [Moles/Vol] 101 mmol/L 98-107 [facility] Work Phone: Eosinophils/100 WBC (Bld) 0.4 % 0-5 [facility] Work Phone: Glucose [Mass/Vol] 146 mg/dL 74-106 [facility] [place] Work Phone: Comment on above: Fasting Glucose resu lt greater than or equal to 126 mg/dL suggests DIABETES MELLITUS per A.D.A. criteria. Neutrophils (Bld) [#/Vol] 4.5 10*3/uL 2.0-7.7 [facility] Work Phone: [phone] Neutrophils/100 WBC (Bld) 83.1 % 47-70 [facility] Work Phone: [phone] Potassium [Moles/Vol] 3.8 mmol/L 3.5-5.1 [facility] Work Phone: [phone] Protein [Mass/Vol] 6.5 g/dL 6.4-8.2 [facility] Work Phone: Sodium [Moles/Vol] 137 mmol/L 136-145 [facility] Work Phone: WBC (Bld) [#/Vol] 5.4 10*3/uL 4.4-11.0 [facility] Work Phone: Blood erythrocytes count (nu mber/volume)on 12-28-2021 RBC (Bld) [#/Vol] 4.86 10*6/uL 4.6-6.2 [facility] Work Phone: Blood hemoglobin measurement (mass/volume)on 12-28-2021 Hemoglobin (Bld) [Mass/Vol] 14.3 g/dL 13.0-16.5 [facility] Work Phone: [phone] Blood lymphocytes/100 leukoc yteson 12-28-2021 Lymphocytes/100 WBC (Bld) 8.0 % 19-41 [facility] Work Phone: [phone] Blood manual differential co mment interpretation (narrative result)on 12-28-2021 Manual differential comment Abel (Bld) [Interp] SCANNED [facility] Work Phone: Comment on above: LYMPHOPENIA NOTED Blood monocytes/100 leukocyt eson 12-28-2021 Monocytes/100 WBC (Bld) 7.6 % 0-10 [facility] Work Phone: [phone] Blood platelet mean volumeon 12-28-2021 Platelet mean volume (Bld) [Entitic vol] 9.9 fL 6.2-12.0 [facility] Work Phone: [phone] Determination of erythrocyte mean corpuscular volume (MCV)on 12-28-2021 MCV (RBC) [Entitic vol] 93.2 fL 80-94 [facility] Work Phone: Hematocrit Auto (Bld) [Volum e fraction]on 12-28-2021 Hematocrit (Bld) [Volume fraction] 45.3 % 40-54 [facility] Work Phone: [phone] Laboratory - Chemistry and C hemistry - challengeon 12-28-2021 ALP [Catalytic activity/Vol] 71 U/L 45-117 [facility] Work Phone: ALT [Catalytic activity/Vol] 20 U/L 16-61 [facility] Work Phone: CO2 [Moles/Vol] 30.0 mmol/L 21.0-32.0 [facility] Work Phone: [phone] Globulin (S) [Mass/Vol] 3.0 g/dL 2.2-4.2 [facility] Work Phone: [phone] Urea nitrogen/Creatinine [Mass ratio] 19.3 mg/mg 10-20 [facility] Work Phone: Laboratory - Hematology and Cell countson 12-28-2021 Erythrocyte distribution width (RBC) [Entitic vol] 53.0 fL 35.1-43.9 [facility] Work Phone: [phone] Erythrocyte distribution width (RBC) [Ratio] 15.5 % 11.6-14.6 [facility] Work Phone: Immature granulocytes/100 WBC (Bld) 0.700 % 0.0-0.9 [facility] Work Phone: [phone] Comment on above: IG% - Immature Granu locytes (promyelocytes, myelocytes and metamyelocytes) > 1% indicates that a LEFT SHIFT is Present. MCH (RBC) [Entitic mass] 29.4 pg 27.0-32.0 [facility] Work Phone: Nucleated RBC/100 WBC (Bld) [Ratio] 0 % 0-5 [facility] Work Phone: MCHC Auto (RBC) [Mass/Vol]on 12-28-2021 MCHC (RBC) [Mass/Vol] 31.6 g/dL 32-36 [facility] Work Phone: No Panel Informationon 12-28 Estimated GFR (MDRD) Amer 67 mL/min >60 [facility] Work Phone: Comment on above: GFR Calc Estimated GFR (MDRD) Non-Af Amer 55 mL/min >60 [facility] Work Phone: Comment on above: Non- GFR Calc Platelets bldon 12-28-2021 Platelets (Bld) [#/Vol] 210 10*3/uL 150-450 [facility] Work Phone: Serum or plasma albumin ernst urement (mass/volume)on 12-28-2021 Albumin [Mass/Vol] 3.5 g/dL 3.2-5.0 [facility] [place] Work Phone: Serum or plasma albumin/glob ulin mass ratioon 12-28-2021 Albumin/Globulin [Mass ratio] 1.2 {ratio} 0.9-2.4 [facility] Work Phone: Serum or plasma calcium ernst urement (mass/volume)on 12-28-2021 Calcium [Mass/Vol] 8.6 mg/dL 8.5-10.1 [facility] [place] Work Phone: Serum or plasma creatinine m easurement (mass/volume)on 12-28-2021 Creatinine [Mass/Vol] 1.35 mg/dL 0.70-1.30 [facility] Work Phone: Comment on above: The validity of the calculated GFR & GFRAA in patients over 70 years has not been determined. Clinical correlation is essential. Serum or plasma urea nitroge n measurement (mass/volume)on 12-28-2021 Urea nitrogen [Mass/Vol] 26 mg/dL 7-18 [facility] Work Phone: [phone] Thin prep Papanicolaou smear with manual screeningon 12-28-2021 Thin prep Papanicolaou smear with manual screening 12 U/L 15-37 [facility] Work Phone: Thin prep Papanicolaou smear with manual screening 6 5-15 [facility] Work Phone: Absolute lymphocyte counton 10-14-2021 Lymphocytes Auto (Unsp spec) [#/Vol] 0.59 10*3/uL 0.83-4.51 [facility] Work Phone: Basophil percentageon 2021 Basophils/100 WBC (Bld) 0.4 % 0-1 [facility] Work Phone: [phone] Bilirubin [Mass/Vol] 0.70 mg/dL 0.20-1.00 [facility] Work Phone: [phone] Comment on above: For patients on eltr ombopag therapy, use of Dimension [place] TBIL is not recommended. Chloride [Moles/Vol] 102 mmol/L 98-107 [facility] Work Phone: Eosinophils/100 WBC (Bld) 0.6 % 0-5 [facility] Work Phone: [phone] Glucose [Mass/Vol] 120 mg/dL 74-106 [facility] [place] Work Phone: Comment on above: Fasting Glucose resu lt from 100 to 125 mg/dL suggests IMPAIRED HOMEOSTASIS per A.D.A. criteria. Neutrophils (Bld) [#/Vol] 3.9 10*3/uL 2.0-7.7 [facility] Work Phone: [phone] Neutrophils/100 WBC (Bld) 77.2 % 47-70 [facility] Work Phone: [phone] Potassium [Moles/Vol] 4.3 mmol/L 3.5-5.1 [facility] Work Phone: Protein [Mass/Vol] 6.7 g/dL 6.4-8.2 [facility] Work Phone: Sodium [Moles/Vol] 136 mmol/L 136-145 [facility] Work Phone: WBC (Bld) [#/Vol] 5.0 10*3/uL 4.4-11.0 [facility] Work Phone: Blood erythrocytes count (nu mber/volume)on 10-14-2021 RBC (Bld) [#/Vol] 5.32 10*6/uL 4.6-6.2 [facility] Work Phone: Blood hemoglobin measurement (mass/volume)on 10-14-2021 Hemoglobin (Bld) [Mass/Vol] 15.7 g/dL 13.0-16.5 [facility] Work Phone: Blood lymphocytes/100 leukoc yteson 10-14-2021 Lymphocytes/100 WBC (Bld) 11.8 % 19-41 [facility] Work Phone: Blood monocytes/100 leukocyt eson 10-14-2021 Monocytes/100 WBC (Bld) 9.4 % 0-10 [facility] Work Phone: Blood platelet mean volumeon 10-14-2021 Platelet mean volume (Bld) [Entitic vol] 9.5 fL 6.2-12.0 [facility] Work Phone: Determination of erythrocyte mean corpuscular volume (MCV)on 10-14-2021 MCV (RBC) [Entitic vol] 91.5 fL 80-94 [facility] Work Phone: Hematocrit Auto (Bld) [Volum e fraction]on 10-14-2021 Hematocrit (Bld) [Volume fraction] 48.7 % 40-54 [facility] Work Phone: [phone] Laboratory - Chemistry and C hemistry - challengeon 10-14-2021 ALP [Catalytic activity/Vol] 64 U/L 45-117 [facility] Work Phone: [phone] ALT [Catalytic activity/Vol] 21 U/L 16-61 [facility] Work Phone: [phone] CO2 [Moles/Vol] 25.0 mmol/L 21.0-32.0 [facility] Work Phone: [phone] Globulin (S) [Mass/Vol] 3.2 g/dL 2.2-4.2 [facility] Work Phone: [phone] Urea nitrogen/Creatinine [Mass ratio] 21.5 mg/mg 10-20 [facility] Work Phone: [phone] Laboratory - Hematology and Cell countson 10-14-2021 Erythrocyte distribution width (RBC) [Entitic vol] 52.2 fL 35.1-43.9 [facility] Work Phone: [phone] Erythrocyte distribution width (RBC) [Ratio] 15.5 % 11.6-14.6 [facility] Work Phone: [phone] Immature granulocytes/100 WBC (Bld) 0.600 % 0.0-0.9 [facility] Work Phone: Comment on above: IG% - Immature Granu locytes (promyelocytes, myelocytes and metamyelocytes) > 1% indicates that a LEFT SHIFT is Present. MCH (RBC) [Entitic mass] 29.5 pg 27.0-32.0 [facility] Work Phone: Nucleated RBC/100 WBC (Bld) [Ratio] 0 % 0-5 [facility] Work Phone: [phone] MCHC Auto (RBC) [Mass/Vol]on 10-14-2021 MCHC (RBC) [Mass/Vol] 32.2 g/dL 32-36 [facility] Work Phone: No Panel Informationon 10-14 Estimated GFR (MDRD) Amer 76 mL/min >60 [facility] Work Phone: Comment on above: GFR Calc Estimated GFR (MDRD) Non-Af Amer 63 mL/min >60 [facility] Work Phone: Comment on above: Non- GFR Calc Platelets bldon 10-14-2021 Platelets (Bld) [#/Vol] 206 10*3/uL 150-450 [facility] Work Phone: Serum or plasma albumin ernst urement (mass/volume)on 10-14-2021 Albumin [Mass/Vol] 3.5 g/dL 3.2-5.0 [facility] Work Phone: Serum or plasma albumin/glob ulin mass ratioon 10-14-2021 Albumin/Globulin [Mass ratio] 1.1 {ratio} 0.9-2.4 [facility] Work Phone: Serum or plasma calcium enrst urement (mass/volume)on 10-14-2021 Calcium [Mass/Vol] 9.1 mg/dL 8.5-10.1 [facility] Work Phone: Serum or plasma creatinine m easurement (mass/volume)on 10-14-2021 Creatinine [Mass/Vol] 1.21 mg/dL 0.70-1.30 [facility] Work Phone: Comment on above: The validity of the calculated GFR & GFRAA in patients over 70 years has not been determined. Clinical correlation is essential. Serum or plasma urea nitroge n measurement (mass/volume)on 10-14-2021 Urea nitrogen [Mass/Vol] 26 mg/dL 7-18 [facility] Work Phone: Thin prep Papanicolaou smear with manual screeningon 10-14-2021 Thin prep Papanicolaou smear with manual screening 13 U/L 15-37 [facility] Work Phone: Thin prep Papanicolaou smear with manual screening 9 5-15 [facility] Work Phone: Vital Signs Date Time Vital Sign Value Performing Clinician Facility 02-21-2025 09:53-0400 Body height 175.[address] Ovidio Vincent MD Work Phone: [facility] 02-21-2025 09:53-0400 Body mass index (BMI) [Ratio] 31.6 kg/m2 Dr. Ovidio Vincent MD Work Phone: [phone] [place] [address] 02-21-2025 09:53-0400 Body weight 97.[address] Ovidio Vincent MD Work Phone: [phone])312-062279 [place] [address] 02-17-2025 08:16-0400 Body mass index (BMI) [Ratio] 31.6 kg/m2 Dr. Ovidio Vincent MD Work Phone: [phone])847-[address]79 [place] [address] 02-17-2025 08:16-0400 Body weight 97.[address] Ovidio Vincent MD Work Phone: 1(552)741-641379 [place] [address] 02-17-2025 08:16-0400 Diastolic blood pressure 57 mm[Hg] Dr. Ovidio Vincent MD Work Phone: 6([phone])627-287979 [place] [address] 02-17-2025 08:16-0400 Heart rate 66 /min Dr. Ovidio Vincent MD Work Phone: 6(452)234-958579 [place] [address] 02-17-2025 08:16-0400 Respiratory rate 18 /min Dr. Ovidio Vincent MD Work Phone: 5(224)806-712779 [place] [address] 02-17-2025 08:16-0400 Systolic blood pressure 101 mm[Hg] Dr. Ovidio Vincent MD Work Phone: 1(064)605-521279 [place] [address] 12-05-2024 10:30-0400 Body height 175.[address] Ovidio Vincent MD Work Phone: 9([phone])615-440279 [place] [address] 12-05-2024 10:30-0400 Body mass index (BMI) [Ratio] 30.9 kg/m2 Dr. Ovidio Vincent MD Work Phone: 9(084)565-583979 [place] [address] 12-05-2024 10:30-0400 Body weight 95.[address] Ovidio Vincent MD Work Phone: 1(504)396-766079 [place] [address] 11-18-2024 07:25-0500 Body mass index (BMI) [Ratio] 30.39 kg/m2 Rebecca Jansen APRN.CNP Work Phone: 4(711)628-043344 [place] [address] 11-18-2024 07:25-0500 Body weight 95.4 kg Rebecca Jansen HIGH SCHOOL LEARNING SUPPORT TEACHER.WASTEWATER DESIGN ENGINEER Work Phone: [facility] 11-18-2024 07:25-0500 Diastolic blood pressure 69 mm[Hg] Rebecca Jansen HIGH SCHOOL LEARNING SUPPORT TEACHER.WASTEWATER DESIGN ENGINEER Work Phone: [facility] 11-18-2024 07:25-0500 Heart rate 52 /min Rebecca Jansen HIGH SCHOOL LEARNING SUPPORT TEACHER.WASTEWATER DESIGN ENGINEER Work Phone: [facility] 11-18-2024 07:25-0500 Systolic blood pressure 130 mm[Hg] Rebecca Jansen HIGH SCHOOL LEARNING SUPPORT TEACHER.WASTEWATER DESIGN ENGINEER Work Phone: [facility] 05-30-2024 09:32-0400 Body height 177.2 cm Ovidio Vincent MD Work Phone: [facility] 05-30-2024 09:32-0400 Body mass index (BMI) [Ratio] 30.64 kg/m2 Ovidio Vincent MD Work Phone: [facility] 05-30-2024 09:32-0400 Body weight 96.16 kg Ovidio Vincent MD Work Phone: [facility] 05-30-2024 09:32-0400 Diastolic blood pressure 66 mm[Hg] Ovidio Vincent MD Work Phone: [facility] 05-30-2024 09:32-0400 Heart rate 89 /min Ovidio Vincent MD Work Phone: [facility] 05-30-2024 09:32-0400 Systolic blood pressure 119 mm[Hg] Ovidio Vincent MD Work Phone: [facility] 05-27-2024 09:45-0400 Body height 175.3 cm Hayde Ward MD Work Phone: [facility] 05-27-2024 09:45-0400 Body mass index (BMI) [Ratio] 31.84 kg/m2 Hayde Ward MD Work Phone: [facility] 05-27-2024 09:45-0400 Body weight 97.8 kg Hayde Ward MD Work Phone: [facility] 05-27-2024 09:45-0400 Diastolic blood pressure 70 mm[Hg] Hayde Ward MD Work Phone: [facility] 05-27-2024 09:45-0400 Heart rate 82 /min Hayde Ward MD Work Phone: [facility] 05-27-2024 09:45-0400 SaO2% (BldA) [Mass fraction] 98 % Hayde Ward MD Work Phone: [facility] 05-27-2024 09:45-0400 Systolic blood pressure 118 mm[Hg] Hayde Ward MD Work Phone: [facility] 05-27-2024 07:05-0400 Body mass index (BMI) [Ratio] 31.6 kg/m2 Leslye Winter PA-C Work Phone: [facility] 05-27-2024 07:05-0400 Body temperature 97.39 [degF] Leslye Winter PA-C Work Phone: [facility] 05-27-2024 07:05-0400 Body weight 97.07 kg Leslye Winter PA-C Work Phone: [facility] 05-27-2024 07:05-0400 Diastolic blood pressure 72 mm[Hg] Leslye Winter PA-C Work Phone: [facility] 05-27-2024 07:05-0400 Heart rate 69 /min Leslye Winter PA-C Work Phone: [facility] 05-27-2024 07:05-0400 Respiratory rate 18 /min Leslye Winter PA-C Work Phone: [facility] 05-27-2024 07:05-0400 SaO2% (BldA) [Mass fraction] 95 % Leslye Winter PA-C Work Phone: [facility] 05-27-2024 07:05-0400 Systolic blood pressure 128 mm[Hg] Leslye Winter PA-C Work Phone: [facility] 05-03-2024 10:17-0400 Body mass index (BMI) [Ratio] 31.16 kg/m2 Murray Mooney MD Work Phone: [facility] 05-03-2024 10:17-0400 Body temperature 97.39 [degF] Murray Mooney MD Work Phone: [facility] 05-03-2024 10:17-0400 Body weight 95.71 kg Murray Mooney MD Work Phone: [facility] 05-03-2024 10:17-0400 Diastolic blood pressure 65 mm[Hg] Murray Mooney MD Work Phone: [facility] 05-03-2024 10:17-0400 Heart rate 87 /min Murray Mooney MD Work Phone: [facility] 05-03-2024 10:17-0400 SaO2% (BldA) [Mass fraction] 95 % Murray Mooney MD Work Phone: [facility] 05-03-2024 10:17-0400 Systolic blood pressure 115 mm[Hg] Murray Mooney MD Work Phone: [facility] 04-16-2024 08:28-0400 Diastolic blood pressure 83 mm[Hg] Ovidio Vincent MD Work Phone: [facility] 04-16-2024 08:28-0400 Systolic blood pressure 135 mm[Hg] Ovidio Vincent MD Work Phone: [facility] 04-16-2024 08:08-0400 Body mass index (BMI) [Ratio] 31.16 kg/m2 Ovidio Vincent MD Work Phone: [facility] 04-16-2024 08:08-0400 Body weight 95.71 kg Ovidio Vincent MD Work Phone: [facility] 04-16-2024 08:08-0400 Respiratory rate 18 /min Ovidio Vincent MD Work Phone: [facility] 01-03-2024 10:21-0400 Diastolic blood pressure 60 mm[Hg] Ovidio Vincent MD Work Phone: [facility] 01-03-2024 10:21-0400 Systolic blood pressure 122 mm[Hg] Ovidio Vincent MD Work Phone: [facility] 01-03-2024 09:52-0400 Body weight 97.52 kg Ovidio Vincent MD Work Phone: [facility] 01-03-2024 09:52-0400 Heart rate 76 /min Ovidio Vincent MD Work Phone: [facility] 01-03-2024 09:52-0400 Respiratory rate 16 /min Ovidio Vincent MD Work Phone: [facility] 11-27-2023 08:10-0400 Body height 175.3 cm Christine Pierreter HIGH SCHOOL LEARNING SUPPORT TEACHER.WASTEWATER DESIGN ENGINEER Work Phone: [facility] 11-27-2023 08:10-0400 Body temperature 98.1 [degF] Christine Pierreter HIGH SCHOOL LEARNING SUPPORT TEACHER.WASTEWATER DESIGN ENGINEER Work Phone: [facility] 11-27-2023 08:10-0400 Body weight 100.88 kg Christine Pierreter HIGH SCHOOL LEARNING SUPPORT TEACHER.WASTEWATER DESIGN ENGINEER Work Phone: [facility] 11-27-2023 08:10-0400 Diastolic blood pressure 64 mm[Hg] Christine Luongpster HIGH SCHOOL LEARNING SUPPORT TEACHER.WASTEWATER DESIGN ENGINEER Work Phone: [facility] 11-27-2023 08:10-0400 Heart rate 51 /min Christine Gaming HIGH SCHOOL LEARNING SUPPORT TEACHER.WASTEWATER DESIGN ENGINEER Work Phone: [facility] 11-27-2023 08:10-0400 SaO2% (BldA) [Mass fraction] 97 % Christine Gaming HIGH SCHOOL LEARNING SUPPORT TEACHER.WASTEWATER DESIGN ENGINEER Work Phone: [facility] 11-27-2023 08:10-0400 Systolic blood pressure 108 mm[Hg] Christine Luongpster HIGH SCHOOL LEARNING SUPPORT TEACHER.WASTEWATER DESIGN ENGINEER Work Phone: [facility] 11-01-2023 09:48-0500 Body weight 99.79 kg Loretta Leon PA-C Work Phone: [facility] 08-17-2023 15:22-0500 Body height 175.[address] Ovidio Vincent Work Phone: [facility] 08-17-2023 15:22-0500 Body mass index (BMI) [Ratio] 33 kg/m2 Dr. Ovidio Vincent Work Phone: [facility] 08-17-2023 15:22-0500 Body weight 101.[address] Ovidio Vincent Work Phone: [facility] 08-17-2023 15:22-0500 Diastolic blood pressure 81 mm[Hg] Dr. Ovidio Vincent Work Phone: [facility] 08-17-2023 15:22-0500 Heart rate 82 /min Dr. Ovidio Vincent Work Phone: [facility] 08-17-2023 15:22-0500 Respiratory rate 16 /min Dr. Ovidio Vincent Work Phone: [facility] 08-17-2023 15:22-0500 Systolic blood pressure 137 mm[Hg] Dr. Ovidio Vincent Work Phone: [facility] 08-01-2023 10:41-0500 Body weight 100.25 kg Rebecca Jansen HIGH SCHOOL LEARNING SUPPORT TEACHER.WASTEWATER DESIGN ENGINEER Work Phone: [facility] 08-01-2023 10:41-0500 Diastolic blood pressure 80 mm[Hg] Rebecca Jansen HIGH SCHOOL LEARNING SUPPORT TEACHER.WASTEWATER DESIGN ENGINEER Work Phone: [facility] 08-01-2023 10:41-0500 Heart rate 86 /min Rebecca Jansen HIGH SCHOOL LEARNING SUPPORT TEACHER.WASTEWATER DESIGN ENGINEER Work Phone: [facility] 08-01-2023 10:41-0500 Respiratory rate 16 /min Rebecca Jansen HIGH SCHOOL LEARNING SUPPORT TEACHER.WASTEWATER DESIGN ENGINEER Work Phone: [facility] 08-01-2023 10:41-0500 Systolic blood pressure 128 mm[Hg] Rebecca Jansen APRN.WASTEWATER DESIGN ENGINEER Work Phone: [facility] 07-12-2023 08:57-0400 Body height 175.3 cm Loretta Marquise PA-C Work Phone: [facility] 07-12-2023 08:57-0400 Body weight 105.23 kg Loretta Marquise PA-C Work Phone: [facility] 07-12-2023 08:57-0400 Diastolic blood pressure 72 mm[Hg] Loretta Marquise PA-C Work Phone: [facility] 07-12-2023 08:57-0400 Heart rate 68 /min Loretta Marquise PA-C Work Phone: [facility] 07-12-2023 08:57-0400 Respiratory rate 14 /min Loretta Marquise PA-C Work Phone: [facility] 07-12-2023 08:57-0400 SaO2% (BldA) [Mass fraction] 96 % Loretta Marquise PA-C Work Phone: [facility] 07-12-2023 08:57-0400 Systolic blood pressure 130 mm[Hg] Loretta Marquise PA-C Work Phone: [facility] 06-12-2023 13:22-0400 Body temperature 98.01 [degF] Ovidio Vincent MD Work Phone: [facility] 06-12-2023 13:22-0400 Body weight 100.43 kg Ovidio Vincent MD Work Phone: [facility] 06-12-2023 13:22-0400 Diastolic blood pressure 74 mm[Hg] Ovidio Vincent MD Work Phone: [facility] 06-12-2023 13:22-0400 Heart rate 80 /min Ovidio Vincent MD Work Phone: [facility] 06-12-2023 13:22-0400 Respiratory rate 16 /min Ovidio Vincent MD Work Phone: [facility] 06-12-2023 13:22-0400 Systolic blood pressure 120 mm[Hg] Ovidio Vincent MD Work Phone: [facility] 05-25-2023 11:59-0400 Body temperature 99.5 [degF] Marni Athy PA-C Work Phone: [facility] 05-25-2023 11:59-0400 Body weight 101.61 kg Marni Athy PA-C Work Phone: [facility] 05-25-2023 11:59-0400 Diastolic blood pressure 78 mm[Hg] Marni Athy PA-C Work Phone: [facility] 05-25-2023 11:59-0400 Heart rate 90 /min Marni Athy PA-C Work Phone: [facility] 05-25-2023 11:59-0400 Respiratory rate 22 /min Marni Athy PA-C Work Phone: [facility] 05-25-2023 11:59-0400 SaO2% (BldA) [Mass fraction] 95 % Marni Athy PA-C Work Phone: [facility] 05-25-2023 11:59-0400 Systolic blood pressure 136 mm[Hg] Marni Athy PA-C Work Phone: [facility] 05-02-2023 09:25-0400 Body height 175.[address] Ovidio Vincent Work Phone: [facility] 05-02-2023 09:25-0400 Body mass index (BMI) [Ratio] 33.2 kg/m2 Dr. Ovidio Vincent Work Phone: [facility] 05-02-2023 09:25-0400 Body weight 102.[address] Ovidio Vincent Work Phone: [facility] 05-02-2023 09:25-0400 Diastolic blood pressure 76 mm[Hg] Dr. Ovidio Vincent Work Phone: [facility] 05-02-2023 09:25-0400 Heart rate 80 /min Dr. Ovidio Vincent Work Phone: [facility] 05-02-2023 09:25-0400 Respiratory rate 16 /min Dr. Ovidio Vincent Work Phone: [facility] 05-02-2023 09:25-0400 Systolic blood pressure 123 mm[Hg] Dr. Ovidio Vincent Work Phone: [facility] 03-30-2023 06:57-0400 Body temperature 97.7 [degF] Leslyekeely Winter PA-C Work Phone: [facility] 03-30-2023 06:57-0400 Body weight 101.61 kg Leslye Winter PA-C Work Phone: [facility] 03-30-2023 06:57-0400 Diastolic blood pressure 80 mm[Hg] Leslye Winter PA-C Work Phone: [facility] 03-30-2023 06:57-0400 Heart rate 80 /min Leslyekeely Winter PA-C Work Phone: [facility] 03-30-2023 06:57-0400 Respiratory rate 18 /min Leslye Winter PA-C Work Phone: [facility] 03-30-2023 06:57-0400 Systolic blood pressure 116 mm[Hg] Leslye Winter PA-C Work Phone: [facility] 03-22-2023 16:37-0400 Body height 175.26 cm [facility] 03-22-2023 16:37-0400 Body mass index (BMI) [Ratio] 33 kg/m2 [facility] 03-22-2023 16:37-0400 Body temperature 96.7 [degF] [facility] 03-22-2023 16:37-0400 Body weight 101.6 kg [facility] 03-22-2023 16:37-0400 Diastolic blood pressure 83 mm[Hg] [facility] 03-22-2023 16:37-0400 Heart rate 86 /min [facility] 03-22-2023 16:37-0400 Respiratory rate 18 /min [facility] 03-22-2023 16:37-0400 SaO2% (BldA) [Mass fraction] 97 % [facility] 03-22-2023 16:37-0400 Systolic blood pressure 154 mm[Hg] [facility] 02-17-2023 13:13-0400 Body temperature 98.3 [degF] [facility] 02-17-2023 13:13-0400 Diastolic blood pressure 75 mm[Hg] [facility] 02-17-2023 13:13-0400 Heart rate 81 /min [facility] 02-17-2023 13:13-0400 Respiratory rate 16 /min [facility] 02-17-2023 13:13-0400 SaO2% (BldA) [Mass fraction] 98 % [facility] 02-17-2023 13:13-0400 Systolic blood pressure 114 mm[Hg] [facility] 02-17-2023 12:21-0400 Body height 175.26 cm [facility] 02-17-2023 12:21-0400 Body mass index (BMI) [Ratio] 34.3 kg/m2 [facility] 02-17-2023 12:21-0400 Body weight 105.5 kg [facility] 02-17-2023 08:38-0400 Body weight 104.33 kg Ovidio Vincent MD Work Phone: [facility] 02-17-2023 08:38-0400 Diastolic blood pressure 94 mm[Hg] Ovidio Vincent MD Work Phone: [facility] 02-17-2023 08:38-0400 Heart rate 80 /min Ovidio Vincent MD Work Phone: [facility] 02-17-2023 08:38-0400 Respiratory rate 18 /min Ovidio Vincent MD Work Phone: [facility] 02-17-2023 08:38-0400 Systolic blood pressure 144 mm[Hg] Ovidio Vincent MD Work Phone: [facility] 02-10-2023 12:01-0400 Heart rate 87 /min [facility] 02-10-2023 12:01-0400 SaO2% (BldA) [Mass fraction] 98 % [facility] 02-10-2023 08:14-0400 Body mass index (BMI) [Ratio] 31.7 kg/m2 [facility] 02-10-2023 08:14-0400 Body temperature 97.1 [degF] [facility] 02-10-2023 08:14-0400 Body weight 97.52 kg [facility] 02-10-2023 08:14-0400 Diastolic blood pressure 87 mm[Hg] [facility] 02-10-2023 08:14-0400 Respiratory rate 14 /min [facility] 02-10-2023 08:14-0400 Systolic blood pressure 154 mm[Hg] [facility] 01-14-2023 06:11-0400 Diastolic blood pressure 71 mm[Hg] [facility] 01-14-2023 06:11-0400 Heart rate 87 /min [facility] 01-14-2023 06:11-0400 Respiratory rate 16 /min [facility] 01-14-2023 06:11-0400 Systolic blood pressure 98 mm[Hg] [facility] 01-13-2023 15:45-0400 Body temperature 97.2 [degF] [facility] 01-13-2023 15:45-0400 SaO2% (BldA) [Mass fraction] 93 % [facility] 01-11-2023 11:35-0400 Body height 175.26 cm [facility] 01-11-2023 11:35-0400 Body weight 96.47 kg [facility] 01-10-2023 10:47-0400 Body mass index (BMI) [Ratio] 31.4 kg/m2 [facility] 12-16-2022 11:59-0400 Body weight 98.88 kg Ovidio Vincent MD Work Phone: [facility] 12-16-2022 11:59-0400 Diastolic blood pressure 70 mm[Hg] Ovidio Vincent MD Work Phone: [facility] 12-16-2022 11:59-0400 Heart rate 72 /min Ovidio Vincent MD Work Phone: [facility] 12-16-2022 11:59-0400 Respiratory rate 18 /min Ovidio Vincent MD Work Phone: [facility] 12-16-2022 11:59-0400 Systolic blood pressure 128 mm[Hg] Ovidio Vincent MD Work Phone: [facility] 11-07-2022 09:38-0500 Body height 175.3 cm Mitchel Jones MD Work Phone: [facility] 11-07-2022 09:38-0500 Body temperature 97.9 [degF] Mitchel Jones MD Work Phone: [facility] 11-07-2022 09:38-0500 Body weight 103.19 kg Mitchel Jones MD Work Phone: [facility] 11-07-2022 09:38-0500 Diastolic blood pressure 86 mm[Hg] Mitchel Jones MD Work Phone: [facility] 11-07-2022 09:38-0500 Heart rate 51 /min Mitchel Jones MD Work Phone: [facility] 11-07-2022 09:38-0500 Systolic blood pressure 131 mm[Hg] Mitchel Jones MD Work Phone: [facility] 11-03-2022 08:15-0500 Diastolic blood pressure 81 mm[Hg] Ovidio Vincent MD Work Phone: [facility] 11-03-2022 08:15-0500 Heart rate 75 /min Ovidio Vincent MD Work Phone: [facility] 11-03-2022 08:15-0500 Systolic blood pressure 135 mm[Hg] Ovidio Vincent MD Work Phone: [facility] 11-03-2022 07:55-0500 Body weight 104.33 kg Ovidio Vincent MD Work Phone: [facility] 11-03-2022 07:55-0500 Respiratory rate 16 /min Ovidio Vincent MD Work Phone: [facility] 10-28-2022 09:14-0500 Body weight 104.33 kg Hayde Ward MD Work Phone: [facility] 09-30-2022 08:27-0500 Diastolic blood pressure 68 mm[Hg] Ovidio Vincent MD Work Phone: [facility] 09-30-2022 08:27-0500 Systolic blood pressure 134 mm[Hg] Ovidio Vincent MD Work Phone: [facility] 09-30-2022 08:01-0500 Body height 177.2 cm Ovidio Vincent MD Work Phone: [facility] 09-30-2022 08:01-0500 Body weight 102.97 kg Ovidio Vincent MD Work Phone: [facility] 09-30-2022 08:01-0500 Heart rate 68 /min Ovidio Vincent MD Work Phone: [facility] 09-30-2022 08:01-0500 Respiratory rate 16 /min Ovidio Vincent MD Work Phone: [facility] 08-08-2022 08:56-0500 Body height 177.8 cm Hayde Ward MD Work Phone: [facility] 08-08-2022 08:56-0500 Body weight 98.4 kg Hayde Ward MD Work Phone: [facility] 08-08-2022 08:56-0500 Diastolic blood pressure 83 mm[Hg] Hayde Ward MD Work Phone: [facility] 08-08-2022 08:56-0500 Heart rate 77 /min Hayde Ward MD Work Phone: [facility] 08-08-2022 08:56-0500 Respiratory rate 14 /min Hayde Ward MD Work Phone: [facility] 08-08-2022 08:56-0500 SaO2% (BldA) [Mass fraction] 96 % Hayde Ward MD Work Phone: [facility] 08-08-2022 08:56-0500 Systolic blood pressure 156 mm[Hg] Hayde Ward MD Work Phone: [facility] 07-04-2022 13:45-0400 Body weight 98.88 kg Ovidio Vincent MD Work Phone: [facility] 07-04-2022 13:45-0400 Diastolic blood pressure 80 mm[Hg] Ovidio Vincent MD Work Phone: [facility] 07-04-2022 13:45-0400 Heart rate 86 /min Ovidio Vincent MD Work Phone: [facility] 07-04-2022 13:45-0400 Respiratory rate 18 /min Ovidio Vincent MD Work Phone: [facility] 07-04-2022 13:45-0400 Systolic blood pressure 122 mm[Hg] Ovidio Vincent MD Work Phone: [facility] 04-26-2022 08:55-0400 Body height 177.5 cm Ela Alvarez MD Work Phone: [facility] 04-26-2022 08:55-0400 Body temperature 97.59 [degF] Ela Alvarez MD Work Phone: [facility] 04-26-2022 08:55-0400 Body weight 98.2 kg Ela Alvarez MD Work Phone: [facility] 04-26-2022 08:55-0400 Diastolic blood pressure 91 mm[Hg] Ela Alvarez MD Work Phone: [facility] 04-26-2022 08:55-0400 Heart rate 80 /min Ela Alvarez MD Work Phone: [facility] 04-26-2022 08:55-0400 SaO2% (BldA) [Mass fraction] 96 % Ela Alvarez MD Work Phone: [facility] 04-26-2022 08:55-0400 Systolic blood pressure 155 mm[Hg] Ela Alvarez MD Work Phone: [facility] 03-22-2022 07:02-0400 Body temperature 97.59 [degF] Leslye Winter PA-C Work Phone: [facility] 03-22-2022 07:02-0400 Body weight 99.34 kg Leslye Winter PA-C Work Phone: [facility] 03-22-2022 07:02-0400 Diastolic blood pressure 86 mm[Hg] Leslye Winter PA-C Work Phone: [facility] 03-22-2022 07:02-0400 Heart rate 72 /min Leslye Winter PA-C Work Phone: [facility] 03-22-2022 07:02-0400 Respiratory rate 18 /min Leslye Winter PA-C Work Phone: [facility] 03-22-2022 07:02-0400 Systolic blood pressure 126 mm[Hg] Leslye Winter PA-C Work Phone: [facility] 01-20-2022 09:01-0400 Body height 177.8 cm Loretta Marquise PA-C Work Phone: [facility] 01-20-2022 09:01-0400 Body temperature 97.39 [degF] Loretta Marquise PA-C Work Phone: [facility] 01-20-2022 09:01-0400 Body weight 100.88 kg Loretta Marquise PA-C Work Phone: [facility] 01-20-2022 09:01-0400 Diastolic blood pressure 68 mm[Hg] Loretta Marquise PA-C Work Phone: [facility] 01-20-2022 09:01-0400 Heart rate 91 /min Loretta Marquise PA-C Work Phone: [facility] 01-20-2022 09:01-0400 Respiratory rate 18 /min Loretta Marquise PA-C Work Phone: [facility] 01-20-2022 09:01-0400 SaO2% (BldA) [Mass fraction] 96 % Loretta Leon PA-C Work Phone: [facility] 01-20-2022 09:01-0400 Systolic blood pressure 131 mm[Hg] Loretta Leon PA-C Work Phone: [facility] Encounters Encounter Date Encounter Type Care Provider Facility Start: 03-11-2025 ambulatory Caio Gomez Facility:[facility] Start: 03-04-2025 ambulatory Ovidio Vincent Facility :[facility] Start: 02-28-2025 Encounter for other preprocedural examination [facility] Start: 02-27-2025 End: 02-27-2025 Chart abstracting Ovidio Vincent MD Work Phone: [facility] Comment on above: Outside Echo Start: 02-26-2025 ambulatory Ovidio Vincent Facility :[facility] Start: 02-26-2025 ambulatory Ovidio Vincent Facility :[facility] Start: 02-21-2025 End: 02-21-[address] Caio Gomez MD -[facility] Work Phone: Start: 02-21-2025 End: 02-21-[address] Ovidio Vincent MD Work Phone: [facility] Work Phone: Start: 02-17-2025 End: 02-17-2025 Chart abstracting Ovidio Vincent MD Work Phone: [facility] Comment on above: Outside Cardiology Outside [id number] Ordered Start: 02-17-2025 Encounter for preprocedural cardiovascular examination Patsy Gamble [facility] Start: 02-17-2025 End: 02-17-[address] Patsy Gamble MD -[facility] Work Phone: Start: 02-17-2025 End: 02-17-[address] Patsy Gamble [facility] Start: 02-17-2025 End: 02-17-[address] Ovidio Vincent MD Work Phone: [facility] Work Phone: Start: 02-06-2025 End: 02-11-2025 Telephone encounter Ramu Alanis [facility] Comment on above: Patient Update (Medi ollie Clearance from [facility] ) Start: 01-16-2025 End: 01-16-2025 Refill Leslye Winter PA-C Work Phone: [facility] [place] Comment on above: Refill Request Start: 01-14-2025 ambulatory Ovidio Vincent Facility :[facility] Start: 01-03-2025 End: 01-03-2025 Chart abstracting Ovidio Vincent MD Work Phone: [facility] [place] Comment on above: Outside Ortho Start: 01-02-2025 End: 01-02-[address] Caio Gomez MD -[facility] Work Phone: Start: 01-02-2025 End: 01-02-2025 ambulatory Ovidio Vincent Facility:[facility] Start: 12-27-2024 End: 12-27-2024 ambulatory CAIO GOMEZ Facility:[facility] Start: 12-27-2024 End: 12-27-2024 Subsequent hospital visit by physician [facility] (I-Stat/1.5t) Work Phone: Radiology Start: 12-20-2024 End: 12-20-2024 ambulatory ESVIN MARCUS Facility:[facility] Start: 12-20-2024 End: 12-20-2024 Patient encounter procedure Esvin Marcus Work Phone: Podiatry Comment on above: Diabetic polyneuropa thy associated with type 2 diabetes mellitus (HCC) (Primary Dx); Onychomycosis; PAD (peripheral artery disease); Pain in toe of left foot; Pain in toe of right foot Start: 12-11-2024 End: 12-11-2024 Refill Ovidio Vincent MD Work Phone: [facility] [place] Comment on above: Refill Request Start: 12-06-2024 End: 12-06-2024 Chart abstracting Ovidio Vincent MD Work Phone: [facility] [place] Comment on above: Outside Ortho Start: 12-05-2024 End: 12-05-[address] Caio Gomez MD -[facility] Work Phone: Start: 12-05-2024 End: 12-05-2024 ambulatory Ovidio Vincent Facility:[facility] Start: 11-30-2024 End: 12-02-2024 Refill Leslye Winter PA-C Work Phone: [facility] [place] Comment on above: Refill Request Start: 11-19-2024 End: 11-20-2024 Follow-up encounter Rebecca Jansen APRN.CNP Work Phone: [facility] [place] Comment on above: Refill Request Start: 11-18-2024 End: 11-18-2024 Patient encounter procedure Rebecca Jansen APRN.CNP Work Phone: [facility] [place] Comment on above: Advanced directives, counseling/discussion (Primary [...] Start: 11-18-2024 End: 11-18-2024 ambulatory OVIDIO VINCENT Facility:[facility] Start: 11-12-2024 End: 11-12-2024 Telephone encounter Murray Mooney MD Work Phone: Hematology/Oncology Comment on above: Results Start: 11-04-2024 End: 11-04-2024 ambulatory MURRAY MOONEY Facility:[facility] Start: 10-02-2024 End: 10-02-2024 Refill Rebecca Jansen APRN.CNP Work Phone: [employer] Comment on above: Refill Request Start: 10-01-2024 End: 10-01-2024 Orders Only Adonis [facility] Start: 09-30-2024 End: 09-30-2024 ambulatory Rebecca A Ham BLANTON [facility] Start: 09-30-2024 End: 09-30-2024 Patient encounter procedure Rebecca Cheek MA [facility] Comment on above: Population Health Na vigation Outreach ([facility]/) Start: 09-03-2024 End: 09-03-2024 Refill Ovidio Vincent MD Work Phone: [facility] [place] Comment on above: Refill Request Start: 08-21-2024 ambulatory Ovidio Vincent Facility :[facility] Start: 08-21-2024 End: 08-21-2024 ambulatory Ovidio Vincent Facility:[facility] Start: 08-09-2024 End: 08-09-2024 Chart abstracting Ovidio Vincent MD Work Phone: [facility] [place] Comment on above: Outside Cardiology Start: 08-08-2024 End: 08-08-2024 ambulatory Ovidio Vincent Facility:[facility] Start: 08-05-2024 End: 08-05-2024 Telephone encounter Ovidio Vincent MD Work Phone: [facility] [place] Comment on above: Results Start: 08-01-2024 End: 08-01-2024 ambulatory [facility] Start: 07-11-2024 End: 07-11-2024 Refill Leslye Winter PA-C Work Phone: [facility] Comment on above: Refill Request Community Monitoring Outreach (3rd attempt this sequence Telephonic Outreach CDM Home Monitoring/) Start: 07-02-2024 End: 07-02-2024 ambulatory OVIDIO VINCENT Facility:[facility] Start: 07-02-2024 End: 07-02-2024 Patient encounter procedure Esvin Marcus Work Phone: Podiatry Comment on above: Onychomycosis (Prima ry Dx); Type 2 diabetes mellitus without complication, without long-term current use of insulin (HCC); PAD (peripheral artery disease) (HCC); Callus Start: 07-01-2024 End: 07-01-2024 ambulatory Ovidio Vincent MD Work Phone: [facility] [place] Comment on above: RSV vaccine Start: 06-27-2024 End: 06-27-2024 ambulatory Marta Lui RN Work Phone: [employer] Comment on above: Community Monitoring Outreach (2nd attempt Telephonic Outreach CDM Home Monitoring) Start: 06-26-2024 End: 06-26-2024 Telephone encounter Leslye Winter PA-C Work Phone: [facility] Comment on above: Patient Update Start: 06-13-2024 End: 06-13-2024 ambulatory Marta Lui RN Work Phone: [employer] Comment on above: Community Monitoring Outreach (Telephonic Outreach CDM Home Monitoring) Start: 05-30-2024 End: 05-30-2024 Ophthalmic examination and evaluation Ovidio Vincent MD Work Phone: [facility] Start: 05-30-2024 End: 05-30-2024 Patient encounter procedure Ovidio Vincent MD Work Phone: [facility] Comment on above: [facility] subsequent (Primary Dx); Diabetic eye exam [...] Start: 05-30-2024 End: 05-30-2024 ambulatory OVIDIO VINCENT Facility:[facility] Start: 05-29-2024 End: 05-30-2024 Telephone encounter Ovidio Vincent MD Work Phone: [facility] [place] Comment on above: Results Start: 05-29-2024 End: 05-29-2024 ambulatory OVIDIO VINCENT Facility:[facility] Start: 05-29-2024 End: 05-29-2024 Subsequent hospital visit by physician [facility] (I-Stat/1.5t) Work Phone: Radiology Comment on above: Vertigo [R42] Start: 05-27-2024 End: 05-27-2024 ambulatory OVIDIO VINCENT Facility:[facility] Start: 05-27-2024 End: 05-27-2024 Patient encounter procedure Leslye Winter PA-C Work Phone: [facility] [place] Comment on above: Pyogenic arthritis o f right elbow, due to unspecified organism (HCC) (Primary Dx); Iron deficiency anemia, unspecified iron deficiency anemia type; Essential hypertension; Pseudogout COPD, mild (HCC) (Pr imary Dx); Former cigarette smoker; Lung nodules Start: 05-10-2024 End: 05-10-2024 Refill Marta Lui RN Work Phone: [employer] Comment on above: Refill Request Community Monitoring Outreach (Telephonic Outreach CDM Home Monitoring) Start: 05-03-2024 End: 05-03-2024 ambulatory Murray Mooney MD Work Phone: Hematology/Oncology Comment on above: Multiple myeloma in remission (HCC) (Primary Dx) Start: 05-03-2024 End: 05-03-2024 Patient encounter procedure Murray Mooney MD Work Phone: Hematology/Oncology Start: 04-26-2024 End: 04-26-2024 ambulatory Marta Lui RN Work Phone: [employer] Comment on above: Community Monitoring Outreach (2nd attempt Telephonic Outreach CDM Home Monitoring) Start: 04-25-2024 Chart abstracting Ovidio chou MD Work Phone: [facility] [place] Comment on above: PT Discharge Summary Start: 04-25-2024 End: 04-25-2024 ambulatory Ovidio Vincent Facility:[facility] Start: 04-24-2024 ambulatory Marta Lui RN Work Phone: [employer] Comment on above: Community Monitoring Outreach (Telephonic Outreach CDM Home Monitoring) Start: 04-16-2024 Telephone encounter Ramu Alanis MA [facility] [place] Comment on above: Appointment (PT - [place]) Start: 04-16-2024 End: 04-16-2024 ambulatory OVIDIO VINCENT Facility:[facility] Start: 04-16-2024 End: 04-16-2024 Patient encounter procedure Ovidio Vincent MD Work Phone: [facility] [place] Comment on above: Vertigo (Primary Dx) ; Neck pain; Muscle spasms of neck; Essential hypertension; Mixed hyperlipidemia; Type 2 diabetes mellitus without complication, without long-term current use of insulin (HCC); Gastroesophageal reflux disease, unspecified whether esophagitis present; Hypomagnesemia; Low serum vitamin B12; Vitamin D deficiency; Prostate disorder; Medication management Start: 04-15-2024 ambulatory Marta Lui RN Work Phone: [employer] Comment on above: Community Monitoring Outreach (Telephonic Outreach CDM Home Monitoring) Start: 04-08-2024 Refill Leslye Nevarez on PA-C Work Phone: [facility] [place] Comment on above: Refill Request Start: 03-25-2024 ambulatory Ovidio Vincent Facility :[facility] Start: 03-24-2024 ambulatory Ovidio lara MD Work Phone: [facility] Comment on above: prescriptions Start: 03-15-2024 ambulatory Marta Lui RN Work Phone: [employer] Comment on above: Community Monitoring Outreach (Telephonic Outreach CDM Home Monitoring) Start: 03-13-2024 Refill Ovidio lara MD Work Phone: [facility] Comment on above: Refill Request Start: 03-12-2024 ambulatory Ovidio Vincent Facility :[facility] Start: 03-06-2024 Chart abstracting Ovidio chou MD Work Phone: [facility] Comment on above: Outside Cardiology Start: 03-06-2024 End: 03-06-2024 ambulatory Ovidio Vincent Facility:[facility] Start: 02-16-2024 ambulatory Nataliya Shaffer RN Ambul [facility] Comment on above: CDM (Community [facility] Outreach Call //) Start: 02-15-2024 ambulatory Marta Lui RN Work Phone: [employer] Comment on above: Community Monitoring Outreach (Telephonic Outreach CDM Home Monitoring) Start: 02-05-2024 Chart abstracting Ovidio chou MD Work Phone: [facility] Comment on above: Outside PT Start: 01-18-2024 ambulatory Marianela Dent RN Work Phone: [employer] Comment on above: Community Monitoring Outreach Start: 01-17-2024 ambulatory Marta Lui RN Work Phone: [employer] Comment on above: Community Monitoring Outreach (Telephonic Outreach CDM Home Monitoring) Start: 01-16-2024 Telephone encounter Ovidio Vincent MD Work Phone: [facility] Comment on above: Patient Request Start: 01-03-2024 End: 01-03-2024 Patient encounter procedure Ovidio Vincent MD Work Phone: [facility] Comment on above: Pre-op examination ( Primary Dx); Epiretinal membrane (ERM) of left eye; Essential hypertension; Type 2 diabetes mellitus with stage 3a chronic kidney disease, without long-term current use of insulin (HCC); Paroxysmal atrial fibrillation (HCC) Start: 01-03-2024 End: 01-03-2024 Preprocedural examination done Ovidio Vincent MD Work Phone: [facility] Work Phone: Start: 12-26-2023 Preprocedural examin ation done Ovidio Vincent MD Work Phone: [facility] Work Phone: Start: 12-26-2023 Telephone encounter Ovidio Vincent MD Work Phone: [facility] [place] Comment on above: Surgical Clearance Start: 12-21-2023 ambulatory Marta Lui RN Work Phone: [employer] Comment on above: Community Monitoring Outreach (Telephonic Outreach CDM Home Monitoring) Start: 11-27-2023 End: 11-27-2023 Patient encounter procedure Christine Gaming [employer] LEARNING SUPPORT TEACHER.WASTEWATER DESIGN ENGINEER Work Phone: Pulmonary Medicine Comment on above: Encounter for screen ing for lung cancer (Primary Dx); Former cigarette smoker Start: 11-23-2023 ambulatory Marta Lui RN Work Phone: [employer] Comment on above: Community Monitoring Outreach [...] Telephone encounter Leslye hogan PA-C Work Phone: [facility] [place] Comment on above: Results Start: 10-11-2023 End: 10-11-[address] Ovidio Vincent Work Phone: [facility] Work Phone: Start: 10-11-2023 End: 10-11-[address] Ovidio Vincent Work Phone: [facility]-Physical Therapy Work Phone: Start: 09-22-2023 Ophthalmic examinati on and evaluation OVIDIO VINCENT [facility] Start: 09-15-2023 Chart abstracting Ovidio chou MD Work Phone: [facility] Comment on above: Outside Diabetic Eye Exam Start: 09-15-2023 Ophthalmic examinati on and evaluation Ovidio Vincent MD Work Phone: [facility] Start: 08-20-2023 ambulatory Ovidio lara MD Work Phone: [facility] Start: 08-18-2023 Chart abstracting Ovidio chou MD Work Phone: [facility] Comment on above: Outside Cardiology Start: 08-17-2023 End: 08-17-[address] Ovidio Vincent Work Phone: [facility] [facility] Work Phone: Start: 08-03-2023 Telephone encounter Rebecca frank APRN.WASTEWATER DESIGN ENGINEER Work Phone: [facility] Comment on above: Results Start: 08-01-2023 End: 08-01-2023 Patient encounter procedure Rebecca Jansen APRN.WASTEWATER DESIGN ENGINEER Work Phone: [facility] Comment on above: Pre-op testing (Prim tommy Dx) Start: 08-01-2023 End: 08-01-2023 Patient encounter status Rebecca Jansen APRN.WASTEWATER DESIGN ENGINEER Work Phone: [facility] Work Phone: Start: 07-31-2023 End: 07-31-2023 Subsequent hospital visit by physician [facility] (I-Stat) Work Phone: Cat Scan Comment on above: Lung nodules [R91.8] Start: 07-26-[address] [facility] Ovidio Vincent MD Work Phone: [facility] [place] Comment on above: surgery Start: 07-26-2023 ambulatory Marta Lui RN Work Phone: [employer] Comment on above: Community Monitoring Outreach (2nd attempt Telephonic Outreach CDM Home Monitoring) Refill Request Start: 07-25-2023 ambulatory Marta Lui RN Work Phone: [employer] Comment on above: Community Monitoring Outreach (Telephonic Outreach CDM Home Monitoring) Start: 07-18-2023 ambulatory Ovidio lara MD Work Phone: [facility] [place] Comment on above: handicap placard Start: 07-12-2023 End: 07-12-2023 Office outpatient visit 25 minutes Loretta Leon PA-C Work Phone: Pulmonary Medicine Comment on above: COPD with chronic br onchitis (Primary Dx); Lung nodules; Need for influenza vaccination; Former cigarette smoker Start: 06-27-2023 ambulatory Marta Lui RN Work Phone: [employer] Comment on above: Community Monitoring Outreach (Telephonic Outreach CDM Home Monitoring) Start: 06-23-2023 Telephone encounter Ovidio Vincent MD Work Phone: [facility] [place] Comment on above: Pre-op order Start: 06-12-2023 End: 06-12-2023 Patient encounter procedure Ovidio Vincent MD Work Phone: [facility] [place] Comment on above: Dysfunction of left eustachian tube (Primary Dx) Start: 06-05-2023 Telephone encounter Ovidio Vincent MD Work Phone: [facility] [place] Comment on above: Medication Question Start: 06-02-2023 Chart abstracting Ovidio chou MD Work Phone: [facility] [place] Comment on above: Outside Echo Start: 06-01-2023 Non-patient / Non-visit Dr. Connor Vincent Work Phone: [facility] Work Phone: Start: 05-29-2023 Non-patient / Non-visit Dr. Connor Vincent Work Phone: [facility] Start: 05-29-2023 End: 05-29-[address] Ovidio Vincent Work Phone: [facility] Work Phone: Start: 05-29-2023 End: 05-29-[address] Ovidio Vincent Work Phone: [facility]-Cardiovascula r Services Work Phone: Start: 05-28-2023 ambulatory Ovidio lara MD Work Phone: [facility] Comment on above: [employer] Start: 05-26-2023 Chart abstracting Ovidio chou MD Work Phone: [facility] Start: 05-25-2023 ambulatory Ovidio lara MD Work Phone: [facility] Comment on above: Enoxaprin Start: 05-25-2023 End: 05-25-2023 Patient encounter procedure Marni Gonzalez PA-C Work Phone: [place] [facility] Comment on above: URI, acute (Primary Dx) Start: 05-19-2023 Refill Ovidio lara MD Work Phone: [facility] Comment on above: Refill Request/Expre [employer] Scripts Refill Request Start: 05-18-2023 ambulatory Yareli Soriano RN Ambu [facility] Comment on above: Community Monitoring Outreach (CDM Telephonic Outreach) Start: 05-02-2023 Chart abstracting Ovidio chou MD Work Phone: [facility] Comment on above: Outside Cardiology Start: 05-02-2023 End: 05-02-[address] Ovidio Vincent Work Phone: [facility]-Laboratory Work Phone: Start: 05-02-2023 End: 05-02-[address] Ovidio Vincent Work Phone: [facility] Work Phone: Start: 05-01-2023 Telephone encounter Ovidio Vincent MD Work Phone: [facility] [place] Comment on above: Orders (Medication/) Start: 04-29-2023 Refill Hayde Ward MD Work Phone: Pulmonary Medicine Comment on above: Refill Request Start: 04-19-2023 ambulatory Marta Lui RN Work Phone: [employer] Comment on above: Community Monitoring Outreach (Telephonic Outreach CDM Home Monitoring) blood pressure Start: 04-13-2023 ambulatory Ovidio lara MD Work Phone: [facility] [place] Comment on above: Heart monitor Start: 04-05-2023 Telephone encounter Ramu Alansi MA [facility] [place] Comment on above: Results Start: 04-03-2023 ambulatory Marta Lui RN Work Phone: [employer] Comment on above: Community Monitoring Outreach (Telephonic Outreach CDM Home Monitoring) Start: 04-02-2023 REFILL - ZOT Heath Junior DO Work Phone: Medical Records Comment on above: Medication Refill Ap proved Start: 03-31-2023 Telephone encounter Leslye hogan PA-C Work Phone: [facility] [place] Comment on above: Results Refill Request Start: 03-30-2023 End: 03-30-2023 Patient encounter procedure Leslye Winter PA-C Work Phone: [facility] [place] Comment on above: Type 2 [...] insulin (HCC); Chronic renal failure, stage 3a (HCC) Start: 03-30-[address] Can Vincent Work Phone: [facility] [facility] Work Phone: Start: 03-24-2023 Telephone encounter Ovidio Vincent MD Work Phone: [facility] Comment on above: Results Start: 03-23-2023 Chart abstracting Ovidio chou MD Work Phone: [facility] Comment on above: ER Discharge Summary Start: 03-22-2023 Patient encounter status [facility] Start: 03-22-2023 End: 03-22-2023 Emergency department patient visit [facility]Emergency Department Work Phone: Start: 03-22-2023 End: 03-22-2023 Nursing evaluation of patient and report Mi Nurse Work Phone: [facility] Comment on above: Irregular heart beat (Primary Dx) Start: 03-22-2023 Telephone encounter Ovidio Vincent MD Work Phone: [facility] Comment on above: Patient Update Start: 03-20-2023 End: 03-20-2023 Patient encounter procedure Loretta Leon PA-C Work Phone: Pulmonary Medicine Comment on above: 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 Ovidio Vincent Work Phone: [facility] Work Phone: Start: 03-07-2023 End: 03-07-[address] [facility]: Start: 03-07-2023 [facility]istered [facility]: Start: 03-06-2023 Refill Ovidio lara MD Work Phone: [facility] Comment on above: Refill Request Start: 02-28-2023 ambulatory Chanelle Lopez um [employer]IGH SCHOOL LEARNING SUPPORT TEACHER.WASTEWATER DESIGN ENGINEER Work Phone: Pulmonary Medicine Start: 02-22-2023 Chart abstracting Ovidio chou MD Work Phone: [facility] Comment on above: ER F/U Start: 02-17-2023 ambulatory Ovidio lara MD Work Phone: [facility] Comment on above: leg swelling Start: 02-17-2023 End: 02-17-2023 Emergency department patient visit [facility]Emergency Department Start: 02-17-2023 End: 02-17-2023 Patient encounter procedure Ovidio Vincent MD Work Phone: [facility] Comment on above: Bilateral leg edema (Primary Dx) Start: 02-15-2023 Registered [facility] Start: 02-14-2023 Chart abstracting Ovidio chou MD Work Phone: [facility] Start: 02-10-2023 End: 02-10-2023 [facility] Start: 01-25-2023 ambulatory Rebecca (Pss) [facility] [place] Comment on above: Population Health Na vigation Outreach ([employer] Care Gaps) Start: 01-17-2023 ambulatory Mara Guardado RN Ambulato [facility] Care Management Comment on above: CDM (Telephonic outr each) Start: 01-16-2023 Patient Outreach [facility] Comment on above: Transition Of Care Appointment Start: 01-12-2023 Chart abstracting Ovidio chou MD Work Phone: [facility] Comment on above: ER F/U Start: 01-09-2023 Chart abstracting Ovidio chou MD Work Phone: [facility] Start: 01-05-2023 End: 01-14-2023 Evaluation and management of inpatient [facility]Transitional Care [facility] Start: 12-21-2022 ambulatory Mara Guardado RN [facility] Management Comment on above: CDM (Telephonic outr each) Start: 12-19-2022 Telephone encounter Ovidio Vincent MD Work Phone: [facility] Comment on above: Results Start: 12-19-2022 End: 12-19-2022 Subsequent hospital visit by physician [facility] Work Phone: Radiology Comment on above: Ex-smoker [Z87.891] Start: 12-16-2022 Telephone encounter Ramu Alanis MA [facility] Comment on above: Appointment Start: 12-16-2022 End: 12-16-2022 Patient encounter procedure Ovidio Vincent MD Work Phone: [facility] Comment on above: Bilateral leg edema (Primary Dx); Essential hypertension; Type 2 diabetes mellitus without complication, without long-term current use of insulin (HCC); Ex-smoker; Encounter for abdominal aortic aneurysm (AAA) screening; Spinal stenosis, lumbar region, without neurogenic claudication; Weakness of both lower extremities; Increased weakness when ambulating; At high risk for falls; Vitamin D deficiency Start: 11-29-2022 ambulatory Rebecca Michel (Ps s) [facility] [place] Comment on above: Population Health Na vigation Outreach ([employer] Care Gaps) Start: 11-25-2022 ambulatory Mara Guardado RN [facility] Management Comment on above: CDM (Telephonic outr each) Start: 11-24-2022 ambulatory Mara Guardado RN Amb[facility] Management Comment on above: CDM (Telephonic outr each) Start: 11-08-2022 Refill Ovidio lara MD Work Phone: [facility] Comment on above: Refill Request Start: 11-07-2022 End: 11-07-2022 ambulatory Mitchel Jones MD Work Phone: Hematology/Oncology Comment on above: Multiple myeloma in remission (HCC) (Primary Dx) Start: 11-07-2022 End: 11-07-2022 Patient encounter procedure Mitchel Jones MD Work Phone: [facility] Start: 11-03-2022 End: 11-03-2022 Patient encounter procedure Ovidio Vincent MD Work Phone: [facility] Comment on above: Bilateral leg edema (Primary Dx); Essential hypertension Start: 10-28-2022 End: 10-28-2022 Patient encounter procedure Hayde Ward MD Work Phone: Pulmonary Medicine Comment on above: 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); Lung nodules; Former cigarette smoker Start: 10-27-2022 ambulatory OVIDIO VINCENT Facili ty:[facility] Start: 10-27-2022 End: 10-27-2022 Subsequent hospital visit by physician Xr [facility] Radiology Comment on above: Multiple myeloma in remission (HCC) [C90.01] Start: 10-24-2022 Refill Ovidio lara MD Work Phone: [facility] Comment on above: Refill Request Start: 10-21-2022 Orders Only Heath Mccabe Work Phone: Hematology/Oncology Comment on above: Multiple myeloma in remission (HCC) (Primary Dx); H/O autologous stem cell transplant (HCC) Medication Request Start: 10-13-2022 ambulatory Ramu Alanis MA [facility] Comment on above: Eye Doctor Start: 10-13-2022 E-mail encounter fro m caregiver Ramu Alanis MA [facility] Start: 10-13-2022 Telephone encounter Ramu Alanis MA [facility] Comment on above: Patient Update Results Start: 10-05-2022 Telephone encounter Ovidio Vincent MD Work Phone: [facility] Comment on above: Results Start: 10-03-2022 End: 10-03-2022 Subsequent hospital visit by physician X[facility] Work Phone: Radiology Comment on above: Spinal stenosis, lum bar region, without neurogenic claudication [M48.061] Start: 09-30-2022 ambulatory No Pcp Grover Loving Start: 09-30-2022 Telephone encounter Ramu Alanis MA [facility] Comment on above: Appointment (Appoint ment with Dr. Head ) Start: 09-30-2022 End: 09-30-2022 Ophthalmic examination and evaluation Ovidio Vincent MD Work Phone: [facility] Start: 09-30-2022 End: 09-30-2022 Patient encounter procedure Ovidio Vincent MD Work Phone: [facility] Work Phone: Comment on above: Medicare annual [facility] visit, subsequent (Primary Dx); Type 2 diabetes [...] 09-21-2022 ambulatory Nargis alonso RN Work Phone: [employer] Analyst Management Comment on above: Community Monitoring Outreach (CDM) Start: 09-19-2022 Refill Ovidio lara MD Work Phone: [facility] Comment on above: Refill Request Start: 09-12-2022 Refill Leslye Nevarez on PA-C Work Phone: [facility] Comment on above: Refill Request Start: 09-05-2022 Refill Hayde Ward MD Work Phone: Pulmonary Medicine Comment on above: Refill Request Start: 08-30-2022 Telephone encounter Hayde Ward MD Work Phone: Pulmonary Medicine Comment on above: Orders (CXR order) Start: 08-30-2022 End: 08-30-2022 ambulatory [facility] Work Phone: Start: 08-30-2022 End: 08-30-2022 Patient encounter procedure [facility] Start: 08-29-2022 Refill Hayde Ward MD Work Phone: Pulmonary Medicine Comment on above: Refill Request Start: 08-24-2022 ambulatory Nargis alonso RN Work Phone: [facility] Start: 08-24-2022 Follow-up encounter Nargis Ortega RN Work Phone: [employer] Analyst Management Comment on above: Community Monitoring Outreach (CDM Follow Up) Start: 08-23-2022 ambulatory aNrgis alonso RN Work Phone: [facility] Start: 08-23-2022 Follow-up encounter Nargis Ortega RN Work Phone: [employer] Analyst Management Comment on above: Community Monitoring Outreach (CDM Follow Up) Start: 08-08-2022 End: 08-08-2022 Patient encounter procedure Hayde Wadr MD Work Phone: Pulmonary Medicine Comment on above: Simple chronic bronc hitis (HCC) (Primary Dx); Former cigarette smoker; Post-nasal drip Start: 07-28-2022 Refill Ela Alvarez MD Work Phone: Hematology/Oncology Comment on above: Refill Request Start: 07-04-2022 End: 07-04-2022 Patient encounter procedure Ovidio Vincent MD Work Phone: [facility] Comment on above: Inflammatory polyart hropathy (HCC) (Primary Dx); Encounter for immunization; ED (erectile dysfunction) of organic origin Start: 07-03-2022 Refill Ela Alvarez MD Work Phone: Hematology/Oncology Comment on above: Refill Request Start: 06-29-2022 ambulatory Nargis alonso RN Work Phone: [employer]st Management Comment on above: Community Monitoring Outreach (CDM Telephonic) Start: 06-28-2022 ambulatory Nargis alonso RN Work Phone: [employer]st Management Comment on above: Community Monitoring Outreach (CDM Telephonic ) Start: 06-17-2022 ambulatory Ovidio lara MD Work Phone: [facility] Comment on above: medications Start: 06-09-2022 Refill Ovidio lara MD Work Phone: [facility] Comment on above: Refill Request Start: 06-08-2022 Refill Leslye Nevarez on PA-C Work Phone: [facility] Comment on above: Refill Request Start: 06-02-2022 End: 06-02-2022 Patient encounter procedure Franco Zuñiga MD Work Phone: Orthopaedics Comment on above: Ganglion cyst (Prima ry Dx) Start: 05-31-2022 ambulatory Nargis alonso RN Work Phone: [employer]st Management Comment on above: Community Monitoring Outreach (CDM Telephonic) Start: 05-11-2022 ambulatory Nargis alonso RN Work Phone: [facility] Start: 05-11-2022 Follow-up encounter Nargis Ortega RN Work Phone: [employer] Process Analyst Management Comment on above: Community Monitoring Outreach [...] procedure Ela Alvarez MD Work Phone: [facility] Start: 04-25-2022 Refill Leslye Nevarez on PA-C Work Phone: [facility] Comment on above: Refill Request Swelling Start: 04-19-2022 Telephone encounter Leslye hogan PA-C Work Phone: [facility] Comment on above: Results Start: 04-18-2022 End: 04-18-2022 Patient encounter procedure Mary Lopez PA-C Work Phone: Orthopaedics Comment on above: Swelling of left figueroa d (Primary Dx); Ganglion cyst; Dupuytren's contracture Start: 04-18-2022 End: 04-18-2022 Subsequent hospital visit by physician Melanie [facility] [place] Work Phone: Radiology Comment on [...] Left hand pain Start: 03-27-2022 Refill Leslye Nevarez on PA-C Work Phone: LAB [facility] Comment on above: Refill Request Start: 03-22-2022 End: 03-22-2022 Patient encounter procedure Leslye STARRC Work Phone: [facility] Comment on above: Type 2 [...] 03-17-2022 Refill Ovidio lara MD Work Phone: [facility] Comment on above: Refill Request Start: 03-16-2022 ambulatory Nargis alonso RN Work Phone: [facility] Start: 03-16-2022 Follow-up encounter Nargis Ortega RN Work Phone: [employer] Analyst Management Comment on above: Community Monitoring Outreach (Telephonic Follow Up) Start: 01-25-2022 ambulatory Loretta Cummins PA-C Work Phone: Pulmonary Medicine Comment on above: AMOX-CLAV Start: 01-24-2022 ambulatory Nargis alonso RN Work Phone: [facility] Start: 01-24-2022 Follow-up encounter Nargis Ortega RN Work Phone: [employer] Analyst Management Comment on above: Community Monitoring Outreach (Telephonic Follow Up) Start: 01-20-2022 End: 01-20-2022 Patient encounter procedure Loretta Leon PA-C Work Phone: Pulmonary Medicine Comment on above: 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); Cough; Non-seasonal allergic rhinitis, unspecified trigger; Pulmonary arterial hypertension (HCC); Acute bronchitis, unspecified organism; Former smoker Start: 01-16-2022 Refill Esvin Junera cavazos Work Phone: Podiatry Comment on above: Refill Request Start: 01-08-2022 Refill Esvin Junera cavazos Work Phone: Podiatry Comment on above: Refill Request Start: 01-06-2022 Refill Leslye Nevarez on PA-C Work Phone: Family [facility] [place] Comment on above: Refill Request Start: 12-28-2021 End: 12-28-2021 Patient encounter procedure [facility] Start: 12-27-2021 ambulatory Nargis alonso RN [employer] Analyst Management Comment on above: Community Monitoring Outreach (CDM Telephonic) Start: 10-19-2021 End: 10-19-2021 Discharged Recurring [facility]-Occupational Therapy Start: 10-14-2021 End: 10-14-2021 Patient encounter procedure [facility] Start: 10-06-2021 Ophthalmic examinati on and evaluation Nargis Ortega RN [facility] Work Phone: Start: 10-06-2021 Patient encounter procedure Nargis Ortega RN [facility] Work Phone: Procedures Date Procedure Procedure Detail [...] YR, HIGH DOSE, QUADRIVALENT (FLUZONE HIGH-DOSE) Loretta STARRC Work Phone: Start: 03-22-2023 Ecg routine ecg w/le ast 12 lds i&r only [facility] Provider Start: 02-10-2023 Plain chest X-ray Start: 01-09-2023 Viral antigen assay Start: 12-19-2022 Us abdominal aorta r eal time screen study aaa Ovidio Vincent MD Work Phone: Start: 10-03-2022 Radex spine lumbosac ral minimum 4 views Ovidio Vincent MD Work Phone: Start: 08-30-2022 CT of chest Start: 07-04-2022 [facility]-Center'd COVI D-19 BIVALENT BOOSTER VACCINE, AGE 12+ [...] Detail Author Start: 09-23-2029 Urine microalbumin profile [facility] Start: 11-18-2025 Annual PCP Team Chronic Disease Visit Annual PCP Team Chronic Disease Visit [facility] Start: 11-18-2025 BP Controlled (<130/80) BP Controlled (<130/80) [facility] Start: 11-18-2025 Hepatitis B surface antibody level LDL Cholesterol [facility] Start: 11-04-2025 Creatinine measurement Serum Creatinine [facility] Start: 08-01-2025 Creatinine measurement Serum Creatinine [facility] Start: 07-02-2025 Diabetic foot examination Diabetic Foot Exam [facility] Start: 06-09-2025 End: 06-09-2025 Patient encounter procedure [facility] Comment on above: Medicare Wellness Start: 05-30-2025 Annual PCP Team Chronic Disease Visit Annual PCP Team Chronic Disease Visit [facility] Start: 05-30-2025 Anxiety Screening Anxiety Screening [facility] Start: 05-30-2025 BP Controlled (<130/80) BP Controlled (<130/80) [facility] Start: 05-30-2025 Covid-19 Vaccine () Covid-19 Vaccine () [facility] Comment on above: Postponed from 05/19/2024 (Currently Tg eduled) Start: 05-30-2025 Covid-19 Vaccine () Covid-19 Vaccine () [facility] Comment on above: Postponed from 05/19/2024 (Currently Tg eduled) Start: 05-30-2025 Depression Screening Depression Screening [facility] Start: 05-30-2025 Diabetic foot examination Diabetic Foot Exam [facility] Start: 05-30-2025 RSV Vaccine (1 - 1-dose 60+ series) RSV Vaccine (1 - 1-dose 60+ series) [facility] Comment on above: Postponed from 2011 (Insurance Cov erage) Start: 05-30-2025 RSV Vaccine (1 - Risk 60-74 years 1-dose series) RSV Vaccine (1 - Risk 60-74 years 1-dose series) [facility] Comment on above: Postponed from 2011 (Insurance Cov erage) Start: 05-27-2025 Annual PCP Team Chronic Disease Visit Annual PCP Team Chronic Disease Visit [facility] Start: 05-27-2025 BP Controlled (<130/80) BP Controlled (<130/80) [facility] Start: 05-21-2025 Hemoglobin A1c measurement HbA1C [facility] Start: 05-03-2025 BP Controlled (<130/80) BP Controlled (<130/80) [facility] Start: 04-26-2025 Creatinine measurement Serum Creatinine [facility] Start: 04-18-2025 End: 04-18-2025 Patient encounter procedure 04/18/2025 1:00 PM EDT Office Visit Podiatry [address] [place] [address] Esvin Marcus [address] [place] [address] 3 mo follow up Podiatry Comment on above: 3 mo follow up Start: 04-16-2025 Annual PCP Team Chronic Disease Visit Annual PCP Team Chronic Disease Visit [facility] Start: 04-16-2025 Creatinine measurement Serum Creatinine [facility] Start: 04-16-2025 Hepatitis B screening Urine Albumin:Creatinine Ratio [facility] Start: 04-16-2025 Hepatitis B surface antibody level LDL Cholesterol [facility] Start: 03-31-2025 End: 03-31-2025 Patient encounter procedure Pulmonary Medicine Comment on above: [facility] PT DOES NOT WANT KENNEDI NER APPT- [facility] Start: 03-26-2025 Glaucoma screening Dilated Retinal Exam [facility] Start: 03-24-2025 End: 03-24-2025 ambulatory Hematology/Oncology Comment on above: 4 MO OV/LABS 03/14* Start: 03-17-2025 Influenza vaccination Influenza Vaccine (#1) [facility] Comment on above: Postponed from 05/19/2024 (Currently Tg [facility]) Start: 03-14-2025 End: 03-14-2025 ambulatory 03/14/2025 8:15 AM EDT Results Only Matthew Weinbergwn [facility] [address] [place] [address] (SO)CBC/BMP/MONOCLONAL PROTEIN/KAPPA* [facility] Comment on above: (SO)CBC/BMP/MONOCLONAL PROTEIN/KAPPA* Start: 01-02-2025 Annual PCP Team Chronic Disease Visit Annual PCP Team Chronic Disease Visit [facility] Start: 01-02-2025 BP Controlled (<130/80) BP Controlled (<130/80) [facility] Start: 01-01-2025 Creatinine measurement Serum Creatinine [facility] Start: 12-30-2024 Covid-19 Vaccine (7 - Moderna risk season) Covid-19 Vaccine (7 - Moderna risk season) [facility] Start: 12-27-2024 End: 12-27-2024 Patient encounter procedure Radiology Comment on above: Arthrodesis status Other Spondylosis wi th myelopathy, thoracic region Start: 12-20-2024 End: 12-20-2024 Patient encounter procedure Podiatry Comment on above: Diabetic Nail Care Start: 11-26-2024 BP Controlled (<130/80) BP Controlled (<130/80) [facility] Start: 11-25-2024 End: 11-25-2024 Patient encounter procedure 11/25/2024 10:00 AM EDT Office Visit Pulmonary Medicine [address] [place], [place] [address] Hayde Ward MD [address] [facility] [place] [place] [id number] 6 month follow up Pulmonary Medicine Comment on above: 6 month follow up Start: 11-18-2024 End: 11-18-2024 Patient encounter procedure 11/18/2024 7:40 AM EST Office Visit [facility] [address] [place], [place] [id number] Rebecca Jansen APRN.WASTEWATER DESIGN ENGINEER [address] [place], [place] [id number] 6 month follow up [facility] Comment on above: 6 month follow up Start: 11-15-2024 End: 02-14-2025 Hemoglobin A1c in Blood HEMOGLOBIN A1C Lab Routine Type 2 diabetes mellitus without complication, without long-term current use of insulin (HCC) Expected: 11/15/2024, Expires: 02/14/2025 [facility] Comment on above: Expected: 11/15/2024, Expires: Start: 11-15-2024 End: 02-14-2025 LIPID PANEL, NONFASTING LIPID PANEL, NONFASTING Lab Routine Type 2 diabetes mellitus without complication, without long-term current use of insulin (HCC) Essential hypertension Mixed hyperlipidemia Bilateral carotid artery stenosis Expected: 11/15/2024, Expires: 02/14/2025 [facility] Comment on above: Expected: 11/15/2024, Expires: Start: 11-15-2024 End: 11-15-2024 ambulatory 11/15/2024 8:15 AM EST Results Only Matthew Augustin [facility] [address] [place] [address] Matthew Augustin [facility] Start: 11-12-2024 End: 11-12-2024 Follow-up encounter 11/12/2024 8:40 AM EST [facility] Hematology/Oncology [address] [place] [address] [place] [address] [place] [address] 6 MO FOLLOW UP/LABS 11/12* Hematology/Oncology Comment on above: 6 MO FOLLOW UP/LABS 11/12* Start: 11-04-2024 End: 11-04-2024 ambulatory 11/04/2024 8:00 AM EST Results Only Matthew Augustin [facility] [address] [place] [address] LAB* Matthew Weinbergwn [facility] Comment on above: LAB* Start: 10-27-2024 Creatinine measurement Serum Creatinine [facility] Start: 10-17-2024 Hemoglobin A1c measurement HbA1C [facility] Start: 10-17-2024 Screening for malignant neoplasm of colon [facility] Start: 10-10-2024 Annual PCP Team Chronic Disease Visit Annual PCP Team Chronic Disease Visit [facility] Start: 10-10-2024 Hepatitis B screening Urine Albumin:Creatinine Ratio [facility] Start: 10-10-2024 Hepatitis B surface antibody level LDL Cholesterol [facility] Start: 09-22-2024 Glaucoma screening Dilated Retinal Exam [facility] Start: 09-18-2024 Advance Directive Discussion Advance Directive Discussion [facility] Start: 09-18-2024 Medicare Advantage Annual Wellness Visit Medicare Advantage Annual Wellness Visit [facility] Start: 09-14-2024 Glaucoma screening Dilated Retinal Exam [facility] Start: 09-04-2024 Annual PCP Team Chronic Disease Visit Annual PCP Team Chronic Disease Visit [facility] Start: 08-26-2024 Covid-19 Vaccine ( season) Covid-19 Vaccine () [facility] Start: 08-01-2024 Annual PCP Team Chronic Disease Visit Annual PCP Team Chronic Disease Visit [facility] Start: 08-01-2024 Creatinine measurement Serum Creatinine [facility] Start: 08-01-2024 Serum Creatinine Serum Creatinine [facility] Start: 07-31-2024 Influenza vaccination Lung Cancer Screening [facility] Start: 07-31-2024 Screening for malignant neoplasm of lung Lung Cancer Screening [facility] Start: 07-18-2024 End: 07-18-2024 Patient encounter procedure 07/18/2024 8:00 AM EDT Office Visit Vasculary Surgery [address] [place] [address] PAD (peripheral artery disease) (HCC) [I73.9] Vasculary Surgery Comment on above: PAD (peripheral artery disease) (HCC) [I 73.9] Start: 07-11-2024 End: 07-11-2024 Patient encounter procedure 07/11/2024 10:00 AM EDT Office Visit Infectious Disease [address] [place] [address] Yun Kasper MD [address] [place] [address] Pyogenic arthritis of right elbow, due to unspecified organism (HCC) [M00.9] Infectious Disease Comment on above: Pyogenic arthritis of right elbow, due t o unspecified organism (HCC) [M00.9] Start: 07-02-2024 End: 07-02-2024 Patient encounter procedure 07/02/2024 8:30 AM EDT Office Visit Podiatry [address] [place] [address] Esvin Marcus [address] [place] [address] Type 2 diabetes mellitus without complication, without [...] Low serum iron Expected: 06/28/2024, Expires: 09/27/2024 [facility] Comment on above: Expected: 06/28/2024, Expires: Start: 06-28-2024 End: 09-27-2024 Ferritin [Mass/volume] in Serum or Plasma FERRITIN Lab Routine Low serum iron Expected: 06/28/2024, Expires: 09/27/2024 [facility] Comment on above: Expected: 06/28/2024, Expires: Start: 06-28-2024 End: 09-27-2024 Iron and Iron binding capacity panel - Serum or Plasma IRON AND TIBC Lab Routine Low serum iron Expected: 06/28/2024, Expires: 09/27/2024 [facility] Work Phone: Comment on above: Expected: 06/28/2024, Expires: Start: 06-26-2024 End: 09-25-2024 C reactive protein [Mass/volume] in Serum or Plasma C-REACTIVE PROTEIN Lab Routine Pseudogout Expected: 06/26/2024, Expires: 09/25/2024 [facility] Work Phone: Comment on above: Expected: 06/26/2024, Expires: Start: 06-12-2024 Annual PCP Team Chronic Disease Visit Annual PCP Team Chronic Disease Visit [facility] Start: 06-12-2024 BP Controlled (<130/80) BP Controlled (<130/80) [facility] Start: 05-30-2024 End: 05-30-2024 Patient encounter procedure 05/30/2024 9:20 AM EDT Office Visit Family Medicine [facility] [address] [place] [id number] Ovidio Vincent MD [address] [place] [id number] Medicare wellness Family Medicine [facility] Comment on above: Medicare wellness Start: 05-29-2024 End: 05-29-2024 Patient encounter procedure Vasculary Surgery Comment on above: Vertigo [R42] Start: 05-27-2024 End: 08-26-2024 C reactive protein [Mass/volume] in Serum or Plasma [facility] Comment on above: Expected: 05/27/2024, Expires: Start: 05-27-2024 End: 08-26-2024 CBC W Auto Differential panel - Blood [facility] Work Phone: Comment on above: Expected: 05/27/2024, Expires: Start: 05-27-2024 End: 08-26-2024 Cobalamin (Vitamin B12) [Mass/volume] in Serum or Plasma [facility] Comment on above: Expected: 05/27/2024, Expires: Start: 05-27-2024 End: 08-26-2024 Creatine kinase [Enzymatic activity/volume] in Serum or Plasma [facility] Comment on above: Expected: 05/27/2024, Expires: Start: 05-27-2024 End: 08-26-2024 Ferritin [Mass/volume] in Serum or Plasma [facility] Comment on above: Expected: 05/27/2024, Expires: Start: 05-27-2024 End: 08-26-2024 Folate [Mass/volume] in Serum or Plasma [facility] Comment on above: Expected: 05/27/2024, Expires: Start: 05-27-2024 End: 08-26-2024 Iron and Iron binding capacity panel - Serum or Plasma [facility] Comment on above: Expected: 05/27/2024, Expires: Start: 05-27-2024 End: 05-27-2024 Patient encounter procedure 05/27/2024 10:00 AM EDT Office Visit Pulmonary Medicine [address] [place] [phone] Hayde Ward MD [address] [place] [address] 6 month follow up Pulmonary Medicine Comment on above: 6 month follow up Start: 05-19-2024 Covid-19 Vaccine ( season) Covid-19 Vaccine () [facility] Start: 05-19-2024 Influenza vaccination Influenza Vaccine (#1) [facility] Start: 05-03-2024 BP CONTROLLED (<130/80) BP CONTROLLED (<130/80) [facility] Start: 05-03-2024 End: 05-03-2024 ambulatory 05/03/2024 10:10 AM EDT Visit (SP) Office Hematology/Oncology [address] [place] [address] [place] [address] [place] [address] 6 MO OV/LAB 04/26* Hematology/Oncology Comment on above: 6 MO OV/LAB 04/26* Start: 04-26-2024 End: 04-26-2024 ambulatory [place] [facility] Comment on above: LAB* Start: 04-24-2024 SERUM CREATININE SERUM CREATININE [facility] Start: 04-16-2024 End: 07-16-2024 25-hydroxyvitamin D3 [Mass/volume] in Serum or Plasma [facility] Comment on above: Expected: 04/16/2024, Expires: Start: 04-16-2024 End: 07-16-2024 CBC W Auto Differential panel - Blood [facility] Comment on above: Expected: 04/16/2024, Expires: Start: 04-16-2024 End: 07-16-2024 Cobalamin (Vitamin B12) [Mass/volume] in Serum or Plasma [facility] Comment on above: Expected: 04/16/2024, Expires: Start: 04-16-2024 End: 07-16-2024 Comprehensive metabolic 2000 panel - Serum or Plasma [facility] Comment on above: Expected: 04/16/2024, Expires: Start: 04-16-2024 End: 07-16-2024 Hemoglobin A1c in Blood [facility] Comment on above: Expected: 04/16/2024, Expires: Start: 04-16-2024 End: 07-16-2024 LIPID PANEL, NONFASTING [facility] Comment on above: Expected: 04/16/2024, Expires: Start: 04-16-2024 End: 07-16-2024 Magnesium [Mass/volume] in Serum or Plasma [facility] Comment on above: Expected: 04/16/2024, Expires: Start: 04-16-2024 End: 07-16-2024 Microalbumin/Creatinine [Mass Ratio] in Urine [facility] Comment on above: Expected: 04/16/2024, Expires: Start: 04-16-2024 End: 07-16-2024 Prostate specific Ag [Mass/volume] in Serum or Plasma [facility] Comment on above: Expected: 04/16/2024, Expires: Start: 04-16-2024 End: 07-16-2024 Urinalysis complete panel - Urine [facility] Comment on above: Expected: 04/16/2024, Expires: Start: 04-16-2024 End: 04-16-2024 Patient encounter procedure 04/16/2024 8:00 AM EDT Office Visit Family Medicine Matthew [address] [place] [address] Ovidio Vincent MD [address] [place] [address] Medicare Wellness Family Medicine [facility] Comment on above: Medicare Wellness Start: 04-09-2024 Hemoglobin A1c measurement HbA1C [facility] Start: 03-30-2024 ANNUAL PCP TEAM CHRONIC DISEASE VISIT ANNUAL PCP TEAM CHRONIC DISEASE VISIT [facility] Start: 03-30-2024 Hepatitis B surface antibody level LDL CHOLESTEROL [facility] Start: 03-24-2024 SERUM CREATININE SERUM CREATININE [facility] Start: 02-25-2024 ANNUAL PCP TEAM CHRONIC DISEASE VISIT ANNUAL PCP TEAM CHRONIC DISEASE VISIT [facility] Start: 02-18-2024 ANNUAL PCP TEAM CHRONIC DISEASE VISIT ANNUAL PCP TEAM CHRONIC DISEASE VISIT [facility] Start: 02-02-2024 Hemoglobin A1c measurement HbA1C [facility] Start: 02-02-2024 Hemoglobin A1c/Hemoglobin.total in Blood HbA1C [facility] Start: 12-26-2023 End: 03-26-2024 Basic metabolic 2000 panel - Serum or Plasma BASIC METABOLIC PNL Lab Routine Pre-op evaluation Type 2 diabetes mellitus with stage 3a chronic kidney disease, without long-term current use of insulin (HCC) Essential hypertension Expected: 12/26/2023, Expires: 03/26/2024 [facility] Work Phone: Comment on above: Expected: 12/26/2023, Expires: 4 Start: 12-26-2023 End: 03-26-2024 CBC W Auto Differential panel - Blood CBC + DIFF Lab Routine Pre-op evaluation Type 2 diabetes mellitus with stage 3a chronic kidney disease, without long-term current use of insulin (HCC) Expected: 12/26/2023, Expires: 03/26/2024 [facility] Work Phone: Comment on above: Expected: 12/26/2023, Expires: Start: 12-17-2023 ANNUAL PCP TEAM CHRONIC DISEASE VISIT ANNUAL PCP TEAM CHRONIC DISEASE VISIT [facility] Start: 12-17-2023 BP CONTROLLED (<130/80) BP CONTROLLED (<130/80) [facility] Start: 11-03-2023 ANNUAL PCP TEAM CHRONIC DISEASE VISIT ANNUAL PCP TEAM CHRONIC DISEASE VISIT [facility] Start: 10-12-2023 COLORECTAL CANCER SCREENING COLORECTAL CANCER SCREENING [facility] Start: 10-12-2023 FECAL OCCULT BLOOD FECAL OCCULT BLOOD [facility] Start: 10-12-2023 Hepatitis B screening URINE ALBUMIN:CREATININE RATIO [facility] Start: 10-12-2023 Hepatitis B surface antibody level LDL CHOLESTEROL [facility] Start: 10-12-2023 Screening for malignant neoplasm of colon [facility] Start: 09-30-2023 3 comp foot exam completed DIABETIC FOOT EXAM [facility] Start: 09-30-2023 ANNUAL PCP TEAM CHRONIC DISEASE VISIT ANNUAL PCP TEAM CHRONIC DISEASE VISIT [facility] Start: 09-30-2023 Diabetic foot examination Diabetic Foot Exam [facility] Start: 09-30-2023 Hemoglobin A1c/Hemoglobin.total in Blood HBA1C [facility] Start: 09-18-2023 Advance Directive Discussion Advance Directive Discussion [facility] Start: 09-18-2023 Behavioral Health Screening Behavioral Health Screening [facility] Start: 09-18-2023 Depression Assessment Depression Assessment [facility] Start: 08-30-2023 Influenza vaccination LUNG CANCER SCREENING [facility] Start: 08-17-2023 Evaluation of diagnostic study results [facility] Start: 08-01-2023 End: 10-31-2023 Comprehensive metabolic 2000 panel - Serum or Plasma [facility] Work Phone: Comment on above: Expected: 08/01/2023, Expires: 4 Start: 07-04-2023 ANNUAL PCP TEAM CHRONIC DISEASE VISIT ANNUAL PCP TEAM CHRONIC DISEASE VISIT [facility] Start: 05-19-2023 Covid-19 Vaccine () Covid-19 Vaccine () [facility] Start: 05-19-2023 Influenza vaccination [facility] Start: 05-07-2023 End: 07-07-2023 CBC W Auto Differential panel - Blood CBC + DIFF Lab Routine Multiple myeloma in remission (HCC) Expected: 05/07/2023, Expires: 07/07/2023 [facility] Work Phone: Comment on above: Expected: 05/07/2023, Expires: 3 Start: 05-07-2023 End: 07-07-2023 Comprehensive metabolic 2000 panel - Serum or Plasma COMP METABOLIC PANEL Lab Routine Multiple myeloma in remission (HCC) Expected: 05/07/2023, Expires: 07/07/2023 [facility] Work Phone: Comment on above: Expected: 05/07/2023, Expires: 3 Start: 05-07-2023 End: 07-07-2023 IMMUNOFIXATION SCREEN, SERUM IMMUNOFIXATION SCREEN, SERUM Lab Routine Multiple myeloma in remission (HCC) Expected: 05/07/2023, Expires: 07/07/2023 [facility] Work Phone: Comment on above: Expected: 05/07/2023, Expires: 3 Start: 05-07-2023 End: 07-07-2023 KAPPA/PHAN,FREE,SER KAPPA/PHAN,FREE,SER Lab Routine Multiple myeloma in remission (HCC) Expected: 05/07/2023, Expires: 07/07/2023 [facility] Work Phone: Comment on above: Expected: 05/07/2023, Expires: 3 Start: 04-23-2023 Adult depression screening assessment DEPRESSION SCREENING [facility] Start: 04-18-2023 Hepatitis B surface antibody level LDL CHOLESTEROL [facility] Start: 04-11-2023 Hemoglobin A1c/Hemoglobin.total in Blood HBA1C [facility] Start: 03-30-2023 End: 05-30-2023 LIPID PANEL, NONFASTING [facility] Work Phone: Comment on above: Expected: 03/30/2023, Expires: 3 Start: 03-22-2023 ANNUAL PCP TEAM CHRONIC DISEASE VISIT ANNUAL PCP TEAM CHRONIC DISEASE VISIT [facility] Start: 03-07-2023 End: 11-27-2023 Ct thorax w/o contrast material CT CHEST WO IVCON Radiology Routine Lung nodules Expected: 03/07/2023, Expires: 11/27/2023 [facility] Work Phone: Comment on above: Expected: 03/07/2023, Expires: 4 Start: 02-10-2023 [facility] Start: 02-03-2023 Blood chemistry [facility] Start: 01-27-2023 Blood chemistry [facility] Start: 01-20-2023 Blood chemistry [facility] Start: 01-16-2023 Development of care plan [facility] Start: 01-14-2023 Patient discharge [facility] Start: 01-06-2023 [facility] Start: 01-06-2023 Development of care plan [facility] Start: 01-06-2023 Developing a treatment plan [facility] Start: 01-05-2023 Provision of activity privileges [facility] Start: 01-05-2023 Wound care [facility] Start: 01-05-2023 End: 01-05-2023 [facility] Start: 01-05-2023 Admission procedure [facility] Start: 01-05-2023 Measuring intake and output [facility] Start: 01-05-2023 Patient referral to dietitian [facility] Start: 01-05-2023 Referral to occupational therapist [facility] Start: 01-05-2023 Referral to service [facility] Start: 01-05-2023 Vital signs measurements [facility] Start: 01-05-2023 Patient referral to dietitian [facility] Start: 11-03-2022 End: 01-03-2023 Basic metabolic 2000 panel - Serum or Plasma BASIC METABOLIC PNL Lab Routine Bilateral leg edema Essential hypertension Expected: 11/03/2022, Expires: 01/03/2023 [facility] Work Phone: Comment on above: Expected: 11/03/2022, Expires: 3 Start: 10-24-2022 End: 12-24-2022 [id number] [Mass/volume] in Serum or Plasma B2 MICROGLOBULIN B Lab Routine Multiple myeloma in remission (HCC) H/O autologous stem cell transplant (HCC) Expected: 10/24/2022, Expires: 12/24/2022 [facility] Work Phone: Comment on above: Expected: 10/24/2022, Expires: Start: 10-24-2022 End: 12-24-2022 CBC W Auto Differential panel - Blood CBC + DIFF Lab STAT Multiple myeloma in remission (HCC) H/O autologous stem cell transplant (HCC) Expected: 10/24/2022, Expires: 12/24/2022 [facility] Work Phone: Comment on above: Expected: 10/24/2022, Expires: 3 Start: 10-24-2022 End: 12-24-2022 Comprehensive metabolic 2000 panel - Serum or Plasma COMP METABOLIC PANEL Lab STAT Multiple myeloma in remission (HCC) H/O autologous stem cell transplant (HCC) Expected: 10/24/2022, Expires: 12/24/2022 [facility] Work Phone: Comment on above: Expected: 10/24/2022, Expires: 3 Start: 10-24-2022 End: 12-24-2022 KAPPA/PHAN,FREE,SER KAPPA/PHAN,FREE,SER Lab Routine Multiple myeloma in remission (HCC) H/O autologous stem cell transplant (HCC) Expected: 10/24/2022, Expires: 12/24/2022 [facility] Work Phone: Comment on above: Expected: 10/24/2022, Expires: Start: 10-24-2022 End: 12-24-2022 MONOCLONAL PROT UR W/INTERP MONOCLONAL PROT UR W/INTERP Lab Routine Multiple myeloma in remission (HCC) H/O autologous stem cell transplant ([facility]) Expected: 10/24/2022, Expires: 12/24/2022 [facility] Work Phone: Comment on above: Expected: 10/24/2022, Expires: Start: 10-24-2022 End: 12-24-2022 MONOCLONAL PROTEIN, SERUM (BLOOD) MONOCLONAL PROTEIN, SERUM (BLOOD) Lab Routine Multiple myeloma in remission (HCC) H/O autologous stem cell transplant ([facility]) Expected: 10/24/2022, Expires: 12/24/2022 [facility] Work Phone: Comment on above: Expected: 10/24/2022, Expires: 3 Start: 10-24-2022 End: 12-24-2022 PROTEIN ELECT RND UR W/INTERP PROTEIN ELECT RND UR W/INTERP Lab Routine Multiple myeloma in remission (HCC) H/O autologous stem cell transplant (HCC) Expected: 10/24/2022, Expires: 12/24/2022 [facility] Work Phone: Comment on above: Expected: 10/24/2022, Expires: Start: 10-24-2022 End: 12-24-2022 PROTEIN ELECTROPHORESIS SERUM W/INTERP PROTEIN ELECTROPHORESIS SERUM W/INTERP Lab Routine Multiple myeloma in remission (HCC) H/O autologous stem cell transplant (HCC) Expected: 10/24/2022, Expires: 12/24/2022 [facility] Work Phone: Comment on above: Expected: 10/24/2022, Expires: 3 Start: 10-19-2022 Hemoglobin A1c/Hemoglobin.total in Blood HBA1C [facility] Start: 10-13-2022 COLORECTAL CANCER SCREENING COLORECTAL CANCER SCREENING [facility] Start: 10-07-2022 Hepatitis B screening URINE ALBUMIN:CREATININE RATIO [facility] Start: 10-07-2022 Hepatitis B surface antibody level LDL CHOLESTEROL [facility] Start: 10-06-2022 3 comp foot exam completed DIABETIC FOOT EXAM [facility] Start: 10-06-2022 ANNUAL PCP TEAM CHRONIC DISEASE VISIT ANNUAL PCP TEAM CHRONIC DISEASE VISIT [facility] Start: 10-06-2022 BP CONTROLLED (<130/80) BP CONTROLLED (<130/80) [facility] Start: 09-30-2022 End: 11-30-2022 ALBUMIN/CREAT RATIO RND UR ALBUMIN/CREAT RATIO RND UR Lab Routine Type 2 diabetes mellitus without complication, without long-term current use of insulin (HCC) Expected: 09/30/2022, Expires: 11/30/2022 [facility] Work Phone: Comment on above: Expected: 09/30/2022, Expires: 3 Start: 09-30-2022 End: 11-30-2022 CBC W Auto Differential panel - Blood CBC + DIFF Lab Routine Type 2 diabetes mellitus without complication, without long-term current use of insulin (HCC) 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) Expected: 09/30/2022, Expires: 11/30/2022 [facility] Work Phone: Comment on above: Expected: 09/30/2022, Expires: 3 Start: 09-30-2022 End: 11-30-2022 Cobalamin (Vitamin B12) [Mass/volume] in Serum or Plasma VITAMIN B12 BLOOD Lab Routine Gastroesophageal reflux disease, unspecified whether esophagitis present Low serum vitamin B12 Medication management Expected: 09/30/2022, Expires: 11/30/2022 [facility] Work Phone: Comment on above: Expected: 09/30/2022, Expires: 3 Start: 09-30-2022 End: 11-30-2022 Comprehensive metabolic 2000 panel - Serum or Plasma COMP METABOLIC PANEL Lab Routine Type 2 diabetes mellitus without complication, without long-term current use of insulin (HCC) Essential hypertension Mixed hyperlipidemia Expected: 09/30/2022, Expires: 11/30/2022 [facility] Work Phone: Comment on above: Expected: 09/30/2022, Expires: 3 Start: 09-30-2022 End: 11-30-2022 Hemoglobin A1c in Blood HGB A1C Lab Routine Type 2 diabetes mellitus without complication, without long-term current use of insulin (HCC) Expected: 09/30/2022, Expires: 11/30/2022 [facility] Work Phone: Comment on above: Expected: 09/30/2022, Expires: 3 Start: 09-30-2022 End: 11-30-2022 Lipid 1996 panel - Serum or Plasma LIPID PANEL BASIC Lab Routine Type 2 diabetes mellitus without complication, without long-term current use of insulin (HCC) Essential hypertension Mixed hyperlipidemia Expected: 09/30/2022, Expires: 11/30/2022 [facility] Work Phone: Comment on above: Expected: 09/30/2022, Expires: 3 Start: 09-30-2022 End: 11-30-2022 Magnesium [Mass/volume] in Serum or Plasma MAGNESIUM BLD Lab Routine Gastroesophageal reflux disease, unspecified whether esophagitis present Hypomagnesemia Medication management Expected: 09/30/2022, Expires: 11/30/2022 [facility] Work Phone: Comment on above: Expected: 09/30/2022, Expires: 3 Start: 09-30-2022 End: 11-30-2022 Prostate specific Ag [Mass/volume] in Serum or Plasma PSA/PROSTSPECAG DIAG Lab Routine Prostate disorder Expected: 09/30/2022, Expires: 11/30/2022 [facility] Work Phone: Comment on above: Expected: 09/30/2022, Expires: 3 Start: 09-30-2022 End: 11-30-2022 Urinalysis complete panel - Urine URINALYSIS, WITH MICROSCOPIC Lab Routine Type 2 diabetes mellitus without complication, without long-term current use of insulin (HCC) Essential hypertension Mixed hyperlipidemia Expected: 09/30/2022, Expires: 11/30/2022 [facility] Work Phone: Comment on above: Expected: 09/30/2022, Expires: 3 Start: 09-25-2022 Colonoscopy COLONOSCOPY [facility] Start: 09-25-2022 COLORECTAL CANCER SCREENING COLORECTAL CANCER SCREENING [facility] Start: 09-18-2022 ADVANCE DIRECTIVE DISCUSSION ADVANCE DIRECTIVE DISCUSSION [facility] Start: 09-18-2022 DEPRESSION ASSESSMENT DEPRESSION ASSESSMENT [facility] Start: 09-09-2022 Hepatitis C antibody, confirmatory test DILATED RETINAL EXAM [facility] Start: 08-29-2022 COVID-19 VACCINE (6 - Moderna risk series) COVID-19 VACCINE (6 - Moderna risk series) [facility] Start: 07-23-2022 End: 01-20-2023 Echocardiography ECHO Cardiology Routine Pulmonary arterial hypertension (HCC) Expected: 07/23/2022, Expires: 01/20/2023 [facility] Work Phone: Comment on above: Expected: 07/23/2022, Expires: 3 Start: 07-10-2022 Adult depression screening assessment DEPRESSION SCREENING [facility] Start: 05-19-2022 Influenza vaccination INFLUENZA (#1) [facility] Start: 04-28-2022 COVID-19 VACCINE (5 - Booster for Moderna series) COVID-19 VACCINE (5 - Booster for Moderna series) [facility] Start: 04-21-2022 End: 05-07-2023 XR HAND GENERAL 3V PA/LAT/OBL LEFT XR HAND GENERAL 3V PA/LAT/OBL LEFT Radiology Routine Pain of left hand Expected: 04/21/2022, Expires: 05/07/2023 [facility] Work Phone: Comment on above: Expected: 04/21/2022, Expires: 3 Start: 04-06-2022 Hemoglobin A1c/Hemoglobin.total in Blood HBA1C [facility] Start: 03-22-2022 End: 05-22-2022 Cobalamin (Vitamin B12) [Mass/volume] in Serum or Plasma VITAMIN B12 BLOOD Lab Routine Low serum vitamin B12 Expected: 03/22/2022, Expires: 05/22/2022 [facility] Work Phone: Comment on above: Expected: 03/22/2022, Expires: 2 Start: 03-22-2022 End: 05-22-2022 Comprehensive metabolic 2000 panel - Serum or Plasma COMP METABOLIC PANEL Lab Routine Type 2 diabetes mellitus without complication, without long-term current use of insulin (HCC) Expected: 03/22/2022, Expires: 05/22/2022 [facility] Work Phone: Comment on above: Expected: 03/22/2022, Expires: 2 Start: 03-22-2022 End: 05-22-2022 Hemoglobin A1c in Blood HGB A1C Lab Routine Type 2 diabetes mellitus without complication, without long-term current use of insulin (HCC) Expected: 03/22/2022, Expires: 05/22/2022 [facility] Work Phone: Comment on above: Expected: 03/22/2022, Expires: 2 Start: 03-22-2022 End: 05-22-2022 LIPID PANEL, NONFASTING LIPID PANEL, NONFASTING Lab Routine Mixed hyperlipidemia Expected: 03/22/2022, Expires: 05/22/2022 [facility] Work Phone: Comment on above: Expected: 03/22/2022, Expires: 2 Start: 03-22-2022 End: 05-22-2022 Magnesium [Mass/volume] in Serum or Plasma MAGNESIUM BLD Lab Routine Hypomagnesemia Expected: 03/22/2022, Expires: 05/22/2022 [facility] Work Phone: Comment on above: Expected: 03/22/2022, Expires: 2 Start: 02-21-2022 COVID-19 VACCINE (5 - Booster for Moderna series) COVID-19 VACCINE (5 - Booster for Moderna series) [facility] Start: 09-18-2021 ADVANCE DIRECTIVE DISCUSSION ADVANCE DIRECTIVE DISCUSSION [facility] Start: 09-18-2021 DEPRESSION ASSESSMENT DEPRESSION ASSESSMENT [facility] Start: 10-22-2020 Influenza vaccination LUNG CANCER SCREENING [facility] Start: 12-22-2019 Hepatitis B Vaccine (3 of 3 - Hep B Twinrix risk 3-dose series) Hepatitis B Vaccine (3 of 3 - Hep B Twinrix risk 3-dose series) [facility] Start: 09-25-2013 Colonoscopy COLONOSCOPY [facility] Start: 09-25-2013 Screening for malignant neoplasm of colon Colonoscopy [facility] Start: 12-29-2012 FECAL OCCULT BLOOD FECAL OCCULT BLOOD [facility] Start: 2011 RSV Vaccine (1 - 1-dose 60+ series) RSV Vaccine (1 - 1-dose 60+ series) [facility] Start: 1996 COLOGUARD (FIT-DNA) COLOGUARD (FIT-DNA) [facility] Start: [address] COLONOGRAPHY [facility] Start: 1996 Screening for malignant neoplasm of colon [facility] Start: 1996 SIGMOIDOSCOPY SIGMOIDOSCOPY [facility] Start: 1981 Zoledronic acid therapy ALPHA-1 ANTITRYPSIN DEFICIENCY SCREENING [facility] Start: 1969 Anxiety Screening Anxiety Screening [facility] Start: 1969 Depression Screening Depression Screening [facility] End: 05-03-2025 Basic metabolic 2000 panel - Serum or Plasma BASIC METABOLIC PANEL Lab Routine Multiple myeloma in remission (HCC) Every 6 months for 2 Occurrences starting 05/03/2024 until 05/03/2025 [facility] Comment on above: Every 6 months for 2 Occurrences startin g 05/03/2024 until 05/03/2025 End: 11-12-2025 Basic metabolic 2000 panel - Serum or Plasma BASIC METABOLIC PANEL Lab Routine Multiple myeloma in remission (HCC) Every 4 months for 3 Occurrences starting 11/12/2024 until 11/12/2025 [facility] Comment on above: Every 4 months for 3 Occurrences startin g 11/12/2024 until 11/12/2025 End: 05-03-2025 CBC W Auto Differential panel - Blood COMPLETE BLOOD COUNT AND DIFFERENTIAL Lab Routine Multiple myeloma in remission (HCC) Every 6 months for 2 Occurrences starting 05/03/2024 until 05/03/2025 [facility] Work Phone: Comment on above: Every 6 months for 2 Occurrences startin g 05/03/2024 until 05/03/2025 End: 11-12-2025 CBC W Auto Differential panel - Blood COMPLETE BLOOD COUNT AND DIFFERENTIAL Lab Routine Multiple myeloma in remission (HCC) Every 4 months for 3 Occurrences starting 11/12/2024 until 11/12/2025 [facility] Work Phone: Comment on above: Every 4 months for 3 Occurrences startin g 11/12/2024 until 11/12/2025 COVID & INFLUENZA A/ B & RSV NAAT, ROUTINE COVID & INFLUENZA A/B & RSV NAAT, ROUTINE Microbiology Routine URI, acute 05/25/2023 1:21 PM EDT [facility] Work Phone: End: 08-10-2024 Ct thorax w/o contrast material CT CHEST WO IVCON Radiology Routine Lung nodules 1 Occurrences starting 07/12/2023 until 08/10/2024 [facility] Work Phone: Comment on above: 1 Occurrences starting 07/12/2023 until 08/10/2024 Ct thorax w/o contra st material CT CHEST WO IVCON Radiology Routine Lung nodules 07/31/2023 10:48 AM EST [facility] Work Phone: End: 03-20-2024 ECG COMPLETE ECG COMPLETE ECG Routine Irregular heart beat 1 Occurrences starting 03/20/2023 until 03/20/2024 [facility] Work Phone: Comment on above: 1 Occurrences starting 03/20/2023 until 03/20/2024 ECG COMPLETE ECG COMPLETE ECG 03/22/2023 2:47 PM EDT [facility] Hemoglobin.karely woodwardlower [Presence] in Stool by Immunoassay FECAL OCCULT BLOOD TEST Lab Routine Screening for colon cancer Ordered: 09/30/2022 [facility] Work Phone: Comment on above: Ordered: 09/30/2022 Hemoglobin.karely woodwardlower [Presence] in Stool by Immunoassay IMMUNOCHEMICAL FECAL OCCULT BLOOD TEST Lab Routine Screening for colon cancer Ordered: 11/18/2024 [facility] Work Phone: Comment on above: Ordered: 11/18/2024 End: 05-03-2025 KAPPA/PHAN,FREE,SER KAPPA/PHAN,FREE,SER Lab Routine Multiple myeloma in remission (HCC) Every 6 months for 2 Occurrences starting 05/03/2024 until 05/03/2025 [facility] Comment on above: Every 6 months for 2 Occurrences startin g 05/03/2024 until 05/03/2025 End: 11-12-2025 KAPPA/PHAN,FREE,SER KAPPA/PHAN,FREE,SER Lab Routine Multiple myeloma in remission (HCC) Every 4 months for 3 Occurrences starting 11/12/2024 until 11/12/2025 [facility] Comment on above: Every 4 months for 3 Occurrences startin g 11/12/2024 until 11/12/2025 End: 05-03-2025 MONOCLONAL PROTEIN, SERUM (BLOOD) MONOCLONAL PROTEIN, SERUM (BLOOD) Lab Routine Multiple myeloma in remission (HCC) Every 6 months for 2 Occurrences starting 05/03/2024 until 05/03/2025 [facility] Comment on above: Every 6 months for 2 Occurrences startin g 05/03/2024 until 05/03/2025 End: 11-12-2025 MONOCLONAL PROTEIN, SERUM (BLOOD) MONOCLONAL PROTEIN, SERUM (BLOOD) Lab Routine Multiple myeloma in remission (HCC) Every 4 months for 3 Occurrences starting 11/12/2024 until 11/12/2025 [facility] Comment on above: Every 4 months for 3 Occurrences startin g 11/12/2024 until 11/12/2025 End: 05-16-2025 MR Brain WO contrast MRI BRAIN WO IVCON Radiology Routine Vertigo 1 Occurrences starting 04/16/2024 until 05/16/2025 [facility] Comment on above: 1 Occurrences starting 04/16/2024 until 05/16/2025 MR Lumbar spine [facility] MR Thoracic spine [facility] Patient Education [facility] Work Phone: Patient referral [facility] Work Phone: End: 05-03-2025 PROTEIN ELECTROPHORESIS SERUM W/INTERP PROTEIN ELECTROPHORESIS SERUM W/INTERP Lab Routine Multiple myeloma in remission (HCC) Every 6 months for 2 Occurrences starting 05/03/2024 until 05/03/2025 [facility] Comment on above: Every 6 months for 2 Occurrences startin g 05/03/2024 until 05/03/2025 End: 11-12-2025 PROTEIN ELECTROPHORESIS SERUM W/INTERP PROTEIN ELECTROPHORESIS SERUM W/INTERP Lab Routine Multiple myeloma in remission (HCC) Every 4 months for 3 Occurrences starting 11/12/2024 until 11/12/2025 [facility] Comment on above: Every 4 months for 3 Occurrences startin g 11/12/2024 until 11/12/2025 End: 10-30-2023 Radex spine lumbosacral minimum 4 views XR LUMBAR PARS DEFECT 4V AP/LAT/BOTH OBL Radiology Routine Spinal stenosis, lumbar region, without neurogenic claudication 1 Occurrences starting 09/30/2022 until 10/30/2023 [facility] Work Phone: Comment on above: 1 Occurrences starting 09/30/2022 until 10/30/2023 End: 05-26-2023 Radiologic examination osseous survey compl XR BONE SURVEY ROUTINE Radiology Routine Multiple myeloma in remission (HCC) H/O autologous stem cell transplant ([facility]) 1 Occurrences starting 04/26/2022 until 05/26/2023 [facility] Work Phone: Comment on above: 1 Occurrences starting 04/26/2022 until 05/26/2023 End: 10-27-2022 Radiologic examination osseous survey compl [facility] Work Phone: Comment on above: 1 Occurrences starting 10/27/2022 until 10/27/2022 ROUTINE FLU A/B + RSV ROUTINE FL U A/B + RSV Lab Routine URI, acute 05/25/2023 1:21 PM EDT [facility] Work Phone: SARS-CoV-2 (COVID-19 ) RNA [Presence] in Respiratory specimen by UJANA with probe detection COVID NAAT, ROUTINE Microbiology Routine URI, acute 05/25/2023 1:21 PM EDT [facility] Work Phone: End: 02-19-2023 SPIROMETRY BASELINE ONLY SPIROMETRY BASELINE ONLY PFT Routine 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HCC) 1 Occurrences starting 01/20/2022 until 02/19/2023 [facility] Work Phone: Comment on above: 1 Occurrences starting 01/20/2022 until 02/19/2023 End: 04-16-2025 US Carotid arteries - bilateral US CAROTID ARTERIES [facility] V[facility] Lab Routine Vertigo 1 Occurrences starting 04/16/2024 until 04/16/2025 [facility] Work Phone: Comment on above: 1 Occurrences starting 04/16/2024 until 04/16/2025 US [facility] End: 07-02-2025 US.doppler Extremity arteries - bilateral for physiologic artery study PVR ANK PRESS [facility] Lab Routine PAD (peripheral artery disease) (HCC) 1 Occurrences starting 07/02/2024 until 07/02/2025 [facility] Work Phone: Comment on above: 1 Occurrences starting 07/02/2024 until 07/02/2025 XR HAND GENERAL 3V PA/LAT/OBL LEFT XR HAND GENERAL 3V PA/LAT/OBL LEFT Radiology Routine Pain of left hand 04/18/2022 8:09 AM EDT [facility] Work Phone: [facility] Immunizations Immunization Date Immunization Notes Care Provider Mirian lopez 07-01-2024 COVID-19 vaccine, ag e 12+ yr ([employer]) Ovidio Vincent MD Work Phone: [facility] 07-01-2024 influenza, high dose seasonal, preservative-free Ovidio Vincent MD Work Phone: [facility] 07-12-2023 influenza (HD-IIV4) vaccine, age 65+ yr, high dose, quadrivalent, PF (FLUZONE HIGH-DOSE) Loretta Leon PA-C Work Phone: [facility] 07-12-2023 influenza virus vacc ine, unspecified formulation Ovidio Vincent MD Work Phone: [facility] 09-05-2022 zoster vaccine recombinant Ovidio Vincent MD Work Phone: [facility] 07-04-2022 COVID-19 booster vaccine, age 12+ yr, bivalent ([employer]) Ovidio Vincent MD Work Phone: [facility] 06-14-2022 influenza (aIIV4) vaccine, age 65+ yr, quadrivalent, PF (FLUAD QUADRIVALENT) Ramu Alanis MA [facility] 06-14-2022 Influenza, high dose seasonal Dr. Ovidio Vincent MD Work Phone: [facility] 06-14-2022 influenza, high dose seasonal, preservative-free [facility] 06-14-2022 zoster vaccine recombinant Ovidio Vincent MD Work Phone: [facility] 06-14-2022 influenza virus vacc ine, unspecified formulation Ovidio Vincent MD Work Phone: [facility] 12-27-2021 COVID-19 vaccine, fu ll dose (MODERNA) Nargis Ortega RN [facility] 07-21-2021 Covid (Moderna) [facility] 06-11-2021 influenza, high-dose , quadrivalent vaccine (FLUZONE HIGH DOSE QUADRIVALENT) Nargis Ortega RN [facility] 04-07-2021 zoster vaccine recombinant Nargis Ortega RN [facility] 03-15-2021 pneumococcal polysaccharide vaccine, 23 valent Nargis Ortega RN [facility] 02-01-2021 zoster vaccine recombinant Nargis Ortega RN [facility] 01-11-2021 SHINGRIX, PF, 50 mcg /0.5 mL injection Nargis Ortega RN [facility] Work Phone: Comment on above: Inject 0.5 mL intram uscularly now and repeat 2nd dose in 2-6 months 01-07-2021 COVID-19 vaccine, fu ll dose (MODERNA) Nargis Ortega RN [facility] 12-10-2020 COVID-19 vaccine, fu ll dose (MODERNA) Nargis Ortega RN [facility] 12-03-2020 Covid (Moderna) [facility] 06-11-2020 influenza, high dose seasonal, preservative-free Nargis Ortega RN [facility] 06-11-2020 unknown vaccine or immune globulin Ovidio Vincent MD Work Phone: [facility] 09-23-2019 haemophilus influenz ae type b vaccine, PRP-T conjugate Nargis Ortega RN [facility] 09-23-2019 meningococcal polysaccharide (groups A, C, Y and W-135) diphtheria toxoid conjugate vaccine (MCV4P) Nargis Ortega RN [facility] 09-23-2019 pneumococcal conjuga te vaccine, 13 valent Nargis Ortega RN [facility] 09-23-2019 tetanus and diphther ia toxoids, adsorbed, preservative free, for adult use (5 Lf of tetanus toxoid and 2 Lf of diphtheria toxoid) Nargis Ortega RN [facility] 07-23-2019 haemophilus influenz ae type b vaccine, PRP-OMP conjugate Nargis Ortega RN [facility] 07-23-2019 hepatitis A and hepatitis B vaccine Nargis Ortega RN [facility] 07-23-2019 pneumococcal conjuga te vaccine, 13 valent Nargis Ortega RN [facility] 07-23-2019 tetanus and diphther ia toxoids, adsorbed, preservative free, for adult use (5 Lf of tetanus toxoid and 2 Lf of diphtheria toxoid) Nargis Ortega RN [facility] 07-15-2019 influenza, high dose seasonal, preservative-free Nargis Ortega RN [facility] 07-30-2018 haemophilus influenz ae type b vaccine, PRP-OMP conjugate Nargis Ortega RN [facility] 07-30-2018 hepatitis A and hepatitis B vaccine Nargis Ortega RN [facility] 07-30-2018 influenza, high dose seasonal, preservative-free Nargis Ortega RN [facility] 07-30-2018 pneumococcal conjuga te vaccine, 13 valent Nargis Ortega RN [facility] 07-30-2018 tetanus toxoid, redu kobe diphtheria toxoid, and acellular pertussis vaccine, adsorbed Nargis Ortega RN [facility] 06-26-2017 influenza, high dose seasonal, preservative-free Nargis Ortega [facility] 07-07-2016 influenza, high dose seasonal, preservative-free Nargis Ortega [facility] Work Phone: 07-07-2016 pneumococcal conjuga te vaccine, 13 valent Nargis Ortega [facility] Work Phone: 2015 influenza, seasonal, injectable Nargis Ortega [facility] Work Phone: 07-04-2014 influenza, seasonal, injectable Nargis Ortega RN [facility] 08-14-2012 zoster vaccine, live Nargis Ortega RN [facility] 12-27-2011 tetanus toxoid, redu kobe diphtheria toxoid, and acellular pertussis vaccine, adsorbed Nargis Ortega [facility] 07-12-2008 influenza virus vacc ine, whole virus Ovidio Vincent MD Work Phone: [facility] 03-18-1996 diphtheria and tetan us toxoids, adsorbed for pediatric use Nargis Ortega RN [facility] Work Phone: 12-06-1994 hepatitis B immune globulin Nargis Ortega RN [facility] Work Phone: 06-23-1994 hepatitis B immune globulin Nargis Ortega RN [facility] Work Phone: 05-16-1994 hepatitis B immune globulin Nargis Ortega RN [facility] Work Phone: Payers Date Payer Category Payer Self-pay [id number] 2021 Medicare AETNA MEDICARE A ETNA MEDICARE PPO [id number] 2021-Present [phone] [address] [place] [address] PPO [id number] 2021 Medicare AETNA MEDICARE A ETNA MEDICARE PPO [id number] 2021-Present [phone] [address] [place] [address] PPO [id number] 2021 Medicare (Managed Care) [facility] [id number] 2021 Private Health Insurance [id number] 2011 Unknown [id number] Unknown [id number] 462 Unknown [id number]. 462 Unknown [id number]. 462 Unknown [id number]. 462 Unknown [id number]. 462 Unknown [id number]. 462 Unknown [id number]. 462 Unknown [id number] [id number]. 462 Unknown [id number] [id number]. 462 Unknown [id number]. 462 Unknown [id number]. 462 Unknown [id number] [id number]. 462 Unknown [id number] [id number]. 462 Unknown [id number]. 462 Unknown [id number]. 462 Unknown [id number]. 462 Unknown [id number] 462 Social History Date Type Detail Facility Start: 04-09-2012 End: 05-27-2024 Tobacco smoking status NHIS Ex-smoker [facility] Start: 1970 End: 12-09-2011 History of tobacco use Current smoker [facility] Start: 1970 End: 12-09-2011 History of tobacco use Pipe Smoker [facility] Start: 04-09-2012 End: 02-17-2023 Cigarettes smoked current (pack per day) - Reported 0.25 [facility] Start: 04-09-2012 End: 05-27-2024 Tobacco use and exposure Smokeless tobacco non-user [facility] Start: 12-20-2021 End: 12-20-2024 Alcohol intake Current drinker of alcohol (finding) [facility] Start: 07-14-2020 End: 09-23-2022 History SDOH Alcohol Frequency 3 [facility] Start: 07-14-2020 End: 09-23-2022 History SDOH Alcohol Std Drinks 1 [facility] Start: 03-27-2018 History SDOH Alcohol Comment rare [facility] Start: 05-18-2020 End: 03-21-2022 History SDOH Social Connections Phone 5 [facility] Start: 05-18-2020 End: 09-23-2022 History SDOH Social Connections Get Together 4 [facility] Start: 05-18-2020 End: 09-23-2022 History SDOH Stress 2 [facility] Start: 09-18-2019 Education 17 [facility] Start: 04-19-2021 End: 07-04-2022 Tobacco Comment 1/4 pack of cigs; pipe smoker. None of either since cessation. No ETS in childhood home. [facility] Start: 1950 Sex Assigned At Not on file [facility] Start: 10-12-2017 End: 08-17-2023 Tobacco smoking status NHIS Unknown if ever smoked [facility] Start: 1950 Sex Assigned At Male [facility] Start: 01-10-2022 End: 08-08-2022 Exposure to SARS-CoV-2 (event) Not sure [facility] Start: 03-19-2022 End: 03-29-2022 Exposure to SARS-CoV-2 (event) Unable to assess [facility] Work Phone: Start: 1970 End: 12-09-2011 History of tobacco use Cigarette Smoker [facility] Work Phone: Start: 08-08-2022 Tobacco Comment 1/4 pack of cigs; pipe smoker. None of either since cessation. No ETS in childhood home. Smoked up to one ppd [facility] Start: 09-23-2022 History SDOH Alcohol Std Drinks 0 [facility] Start: 09-23-2022 History SDOH Social Connections Meetings 98 [facility] Start: 09-23-2022 End: 02-17-2023 Social connection and isolation panel [facility] Active Member of [facility] bs or Organizations Not on file [facility] Are you now , , , , never or living with a partner? [facility] How often do you hav e 6 or more drinks on 1 occasion? Never [facility] Do you feel stress - tense, restless, nervous, or anxious, or unable to sleep at night because your mind is troubled all the time - these days [OSQ] Not at all [facility] (I/We) worried wheth er (my/our) food would run out before (I/we) got money to buy more. Never true [facility] In the past 12 month s, was there a time when you were not able to pay the mortgage or rent on time? No [facility] Start: 03-17-2022 Gender identity Identifies as male gender (finding) [facility] Start: 03-17-2022 Sexual orientation Heterosexual (finding) [facility] Do you belong to any clubs or organizations such as worship groups, unions, fraternal or athletic groups, or school groups? Yes [facility] How often to you hav e a drink containing alcohol? Monthly or less [facility] Start: 10-10-2023 Alcohol Comment seldom [facility] How many standard dr inks containing alcohol do you have on a typical day? 1 or 2 [facility] Goals Date Patient Goal Desired Activity /State [...] 1 11/12/19 7:31 AM EST User, [email or web address] [facility] 11-12-2024 Within the last year , have you been humiliated or emotionally abused in other ways by your partner or ex-partner? No 11/12/2024 7:31 AM EST User, Zot [facility] 11-12-2024 Within the last year , have you been afraid of your partner or ex-partner? No 11/12/2024 7:31 AM EST User, Mychart [facility] 11-12-2024 Within the last year , have you been raped or forced to have any kind of sexual activity by your partner or ex-partner? No 11/12/2024 7:31 AM EST User, Zot [facility] 11-12-2024 Within the last year , have you been kicked, hit, slapped, or otherwise physically hurt by your partner or ex-partner? No 11/12/2024 7:31 AM EST User, Zot No [facility] 11-12-2024 How often to you hav e a drink containing alcohol? Monthly or less 11/12/2024 7:31 AM EST User, [email or web address] Monthly or less [facility] 11-12-[address] inks containing alcohol do you have on a typical day? 1 or 2 11/12/2024 7:31 AM EST User, Zot 1 or 2 [facility] 11-12-2024 How often do you hav e 6 or more drinks on 1 occasion? Never 11/12/2024 7:31 AM WILLIAM Nice Lalochristina Never [facility] 01-14-2023 Functional status Chair [facility] Work Phone: 01-13-2023 Functional status With Assist of 1 [facility] Work Phone: 10-25-2019 Are you deaf, or do you have serious difficulty hearing No 10/25/2019 5:01 PM Trinidad Lopez, ALICIA No [facility] 10-25-2019 Are you blind, or do you have serious difficulty seeing, even when wearing glasses No 10/25/2019 5:01 PM Trinidad Lopez, ALICIA No [facility] 10-25-2019 Do you have serious difficulty walking or climbing stairs No 10/25/2019 5:01 PM Trinidad Lopez, ALICIA No [facility] 10-25-2019 Do you have difficul ty dressing or bathing No 10/25/2019 5:01 PM Trinidad Lopez, ALICIA No [facility] 10-25-2019 Because of a physica l, mental, or emotional condition, do you have difficulty doing errands alone such as visiting a physician's office or shopping No 10/25/2019 5:01 PM Trinidad Lopez, ALICIA No [facility] Mental Status Date Assessment Result Facility 03-22-2023 Cognitive function Level Of Cons ciousness Awake;Alert;Appropriate;Fol lows Commands [facility] Work Phone: 02-17-2023 Cognitive function Level Of Cons ciousness Awake;Alert;Appropriate;Fol lows Commands;Responds to vocal stimuli [facility] Work Phone: 02-10-2023 Cognitive function Level Of Cons ciousness Awake;Alert;Appropriate [facility] Work Phone: 01-14-2023 Cognitive function Voice/Name [facility] Work Phone: 01-13-2023 Cognitive function Voice/Name [facility] Work Phone: 10-25-2019 Because of a physica l, mental, or emotional condition, do you have serious difficulty concentrating, remembering, or making decisions No 10/25/2019 5:01 PM Trinidad Lopez RN No [facility] Clinical Notes 10-23-2019 to 02-27-2025 Slime Hernandez LPN - 02/27/2025 9:17 AM EDSlime perry LPN - 02/17/2025 2:08 PM EDTHSlime perry LPN - 02/17/2025 11:47 AM EDT Note Date & Type Note Facility 02-27-2025 History of Presen t illness Narrative Scan on 02/26/2025 10:00 AM by Justyn Clark PA-C: Echo documented in this encounter [facility] 02-21-2025 Progress note [facility] 02-17-2025 History of Presen t illness Narrative Scan on 02/17/2025 2:12 PM by Justyn Clark PA-C: Chemistry Scan on 02/17/2025 1:35 PM by Justyn Clark PA-C: Chemistry documented in this encounter [facility] 02-17-2025 History of Presen t illness Narrative Scan on 02/17/2025 11:24 AM by Justyn Clark PA-C: Consultation - Cardiology documented in this encounter [facility] 02-17-2025 Progress note [facility] 02-17-2025 Progress note Note Date/Time February 17, 2025 11:10am [facility] [address] [place] [address] OFFICE VISIT Date of Service: 02/17/25 MR#: [id number] Acct: [id number] Name: RONNIE YARBROUGH Rep #: [id number] : 1950 Provider: Dr. 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 Ovidio Vincent MD ~ [facility] Work Phone: 1(677) 352-327805-27-2025 Telephone encounter Note* Telephone Encounter - Ramu Alanis MA - 02/11/2025 9:31 AM EDT Faxed. Ramu Alanis MA [facility]05-27-2025 Miscellaneous Notes* Telephone Encounter - Ramu Alanis MA - 02/11/2025 9:31 AM EDT Faxed. Ramu Alanis MA * Telephone Encounter - Ovidio Vincent MD - 02/07/2025 4:29 PM EDT Form ready to be faxed. * Telephone Encounter - Ramu Alanis MA - 02/06/2025 10:58 AM EDT Received fax from [employer]. Contacted patient to schedule and I asked patient is he scheduled to see Cardiology for Clearance and he indicated yes, appointment is scheduled for 02/17/2025 and they are completing Stress Test and labs etc. Form given to PCP to note that patient is being cleared by Cardiology. Ramu Alanis MA documented in this encounterChildren[facility]25 Telephone encounter Note * Telephone Encounter - Ovidio Vincent MD - 02/07/2025 4:29 PM EDT Form ready to be faxed. [facility]05-22-2025 Telephone encounter Note* Telephone Encounter - Ramu Alanis MA - 02/06/2025 10:58 AM EDT Received fax from [employer]. Contacted patient to schedule and I asked patient is he scheduled to see Cardiology for Clearance and he indicated yes, appointment is scheduled for 02/17/2025 and they are completing Stress Test and labs etc. Form given to PCP to note that patient is being cleared by Cardiology. Ramu Alanis MA [facility]05-01-2025 Telephone encounter Note* Telephone Encounter - Nargis [...] Fox MA January 16, 2025 11:54 AM [facility]05-01-2025 Miscellaneous Notes* Telephone Encounter - Nargis Fox [...] 16, 2025 11:54 AM documented in this encounterChildren[facility]04-18-2025 History of Present illness Narrative* Slime Hernandez LPN - 01/03/2025 12:13 PM EDT Scan on 01/03/2025 10:00 AM by Provider, SPENCER Alejandra: Consultation - Orthopedics documented in this encounterChildren'S [facility]04-11-2025 History of Present illness Narrative* Shania Ba [...] PATIENT PRESENTS WITH AN 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 Non-Invasive Vascular Laboratory [facility] Lower Extremity Arterial Physiology Study Bilateral/Complete Date [...] Normal at rest. Technologist: Rufina Swartz RVT, [facility] Ordering physician: ESVIN MARCUS Interpreting physician: TAYLOR [...] months. Esvin Marcus DPM documented in this encounterChildren'S [facility]03-26-2025 Telephone encounter Note * Telephone Encounter - Ovidio Vincent MD - 12/11/2024 6:06 PM EDT The following approved medication requests have been transmitted electronically. Requested Prescriptions Signed Prescriptions Disp Refills dapagliflozin propanediol (FARXIGA) 10 mg tablet 90 tablet 1 Sig: Take 1 tablet by mouth once daily. Take one daily in the morning Authorizing Provider: OVIDIO VINCENT MD [facility]03-26-2025 Miscellaneous Notes* Telephone Encounter - Ovidio Vincent [...] Hayes - 12/11/2024 3:26 PM EDT Ref [id number] Patient has been identified by name and [...] Thank you. Liberty Hayes. documented in this encounterChildren'S [facility]03-26-2025 Telephone encounter Note * Telephone Encounter - Liberty Hayes - 12/11/2024 3:26 PM EDT Ref [id number] Patient has been identified by name and [...] 06/09/2025 Please advise. Thank you. Liberty Hayes. 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, 2024 10:23am History of lumbar fusion acute December 05, 2024 10:23am Lumbar scoliosis acute December 052024 10:23am T12 compression fracture acute December 05, 2024 10:23am Thoracolumbar kyphosis acute [facility] 2024 10:23am Failed back surgical syndrome acute January 02, 2025 3:20pm History of lumbar fusion acute January 02, 2025 3:20pm Lumbar scoliosis acute January 022024 3:20pm T12 compression fracture acute January 02, 2025 3:20pm Thoracolumbar kyphosis acute Ap 2024 3:20pm Diabetes mellitus chronic February 10:45am Dyslipidemia chronic February 17 10:45am Essential hypertension chronic 2024 10:45am Hypertensive heart disease chronic February 17, 2025 10:45am PVCs (premature ventricular contractions) chronic February 17, 2025 10:45am DVT of lower extremity, bilateral resolved February 17, 2025 10:45am Preoperative cardiovascular examination noneactive February 17, 2025 10:45am [facility] Work Phone: 1(746) 667-404503-20-2025 Evaluation note* Diagnosis Onset Date Resolution Status Admit Date 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, 2024 10:23am History of lumbar fusion acute December 05, 2024 10:23am Lumbar scoliosis acute December 052024 10:23am T12 compression fracture acute December 05, 2024 10:23am Thoracolumbar kyphosis acute [facility] 2024 10:23am Failed back surgical syndrome acute January 02, 2025 3:20pm History of lumbar fusion acute January 02, 2025 3:20pm Lumbar scoliosis acute January 022024 3:20pm T12 compression fracture acute January 02, 2025 3:20pm Thoracolumbar kyphosis acute Ap 2024 3:20pm Diabetes mellitus chronic February 10:45am [...] 2025 9:51am Thoracolumbar kyphosis acute 2024 9:51am [facility] Work Phone: 1(371) 293-744803-17-2025 Telephone encounter Note* Telephone Encounter - Ramu [...] Alanis MA December 02, 2024 9:09 AM [facility]03-17-2025 Miscellaneous Notes* Telephone Encounter - Ramu Alanis [...] 02, 2024 9:09 AM documented in this encounterChildren'S [facility]03-04-2025 Telephone encounter Note * Telephone Encounter - Ovidio Vincent MD - 11/19/2024 5:16 PM EST Patient sees Pulmonary. Will forward to correct provider. [facility]03-04-2025 Miscellaneous Notes* Telephone Encounter - Ovidio Vincent [...] Yes Requested Prescriptions Pending Prescriptions Disp Refills ifzmvfyfoij-yoznhszhd-rfopircx (TRELEGY ELLIPTA) 100-62.5-25 mcg inhalation powder 3 Each 3 Sig: inhale 1 puff by mouth and INTO THE LUNGS once daily Sondra Bonilla LPN November 19, 2024 1:40 PM documented in this encounterChildren'S Hospital [facility]03-04-2025 Telephone encounter Note * Telephone Encounter - [...] Yes Requested Prescriptions Pending Prescriptions Disp Refills ssrmyjatjpz-vljtappfo-xxammasw (TRELEGY ELLIPTA) 100-62.5-25 mcg inhalation powder 3 Each 3 Sig: inhale 1 puff by mouth and INTO THE LUNGS once daily Sondra Bonilla LPN November 19, 2024 1:40 PM [facility]03-04-2025 Telephone encounter Note* Telephone Encounter - Adrianne Hercules MA - 11/19/2024 10:57 AM EST Pt notified and verbalized understanding Adrianne Hercules MA [facility]03-04-2025 Miscellaneous Notes* Telephone Encounter - Adrianne Hercules MA - 11/19/2024 10:57 AM EST Pt notified and verbalized understanding Adrianne Hercules MA * Telephone Encounter - Rebecca Jansen APRN.CNP - 11/19/2024 8:43 AM EST Please let patient know her labs show improving lipids and hgba1c. Continue current dietary and lifestyle habits. documented in this encounterChildren'S Hospital [facility]03-04-2025 Telephone encounter Note * Telephone Encounter - Rebecca Jansen APRN.CNP - 11/19/2024 8:43 AM EST Please let patient know her labs show improving lipids and hgba1c. Continue current dietary and lifestyle habits. [facility]03-03-2025 NoteHNO ID: [id number] Author: REBECCA JANSEN APRN.CNP Service: ? 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 Day: +12; Engrafted Protocol(s): 3422 1C Preparative regimen: melphalan Mobilization regimen: neupogen and plerixafor Stem cell source: apheresis CD34 cell dose (x10e6/kg): 5.14 Date of transplant: 06/15/2018 Bilateral leg edema 09/30/2022 Cancer of the skin, 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 Cervical spondylosis without myelopathy Chronic renal failure, stage 3a ([facility]) 03/30/2023 COPD (chronic obstructive pulmonary disease) ([facility]) 03/15/2021 Diabetic eye exam ([facility]) 09/09/2021 Last done 09/09/[address] Juve Reza Dilated aortic root ([facility]) 06/04/2023 Seeing [facility] Discoloration and thickening of nails both [...] transfusion Hypomagnesemia 04/22/2021 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 --ppx ACV and cipro Increased weakness when ambulating 12/16/2022 Inflammatory polyarthropathy ([facility]) Leg DVT (deep venous thromboembolism), acute, left ([facility]) 01/02/2018 --acute DVT gastrocnemius found [...] chemotherapy can resume at discharge Multiple myeloma ([facility]) 11/28/2017 Multiple myeloma in remission ([facility]) Obesity, Class I, BMI 30-34.9 10/01/2012 Osteoarthritis of both hands Pancytopenia due to chemotherapy ([facility]) 06/25/2018 --Transfuse PRBC and platelets per protocol --GCSF Peripheral autonomic neuropathy in disorders classified elsewhere 06/07/2005 Pulmonary hypertension, unspecified ([facility]) 10/23/2019 Spinal stenosis, lumbar region, without neurogenic claudication 11/13/2006 Tobacco abuse 12/27/2011 Quit 2013 Type 2 diabetes mellitus without complication, without long-term current use of insulin ([facility]) 04/12/2018 Venous insufficiency, peripheral 01/06/2014 Vitamin D deficiency 12/31/2014 Weakness of both lower extremities 12/16/2022 Previous Surgical History PAST SURGICAL HISTORY Procedure Laterality Date ANES ARTHROSCOPIC TOTAL SHOULDER REPLACEMENT Right 01/28/2013 [facility] - complete right shoulder replaceement ARTHRD [...] cyst removal JOINT REPLACEMENT HX Right shoulder LMJJ-QTSM-FCYBXPTLFYKO-TOTAL REPLACE/BOTH COMPART Left 08/21/2023 [facility] W/O FACETEC [...] No Family History Asth (more content not included)...[facility]03-03-2025 History of Present illness Narrative* Rebecca Jansen, ESSENCE.WASTEWATER DESIGN ENGINEER - 11/18/2024 7:42 AM EST Chief Complaint [...] without myelopathy Chronic renal failure, stage 3a ([facility]) 03/30/2023 COPD (chronic obstructive pulmonary disease) ([facility]) 03/15/2021 Diabetic eye exam ([facility]) 09/09/2021 Last done 09/09/[address] Juve Reza Dilated aortic root ([facility]) 06/04/2023 Seeing [facility] Discoloration [...] transfusion Hypomagnesemia 04/22/2021 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 --ppx ACV and cipro Increased weakness when ambulating 12/16/2022 Inflammatory polyarthropathy ([facility]) Leg DVT (deep venous thromboembolism), acute, left ([facility]) 01/02/2018 --acute DVT gastrocnemius found [...] chemotherapy can resume at discharge Multiple myeloma ([facility]) 11/28/2017 Multiple myeloma in remission ([facility]) Obesity, Class I, BMI 30-34.9 10/01/2012 Osteoarthritis of both hands Pancytopenia due to chemotherapy ([facility]) 06/25/2018 --Transfuse PRBC and platelets per protocol --GCSF Peripheral autonomic neuropathy in disorders classified elsewhere 06/07/2005 Pulmonary hypertension, unspecified ([facility]) 10/23/2019 Spinal stenosis, lumbar region, without neurogenic claudication 11/13/2006 Tobacco abuse 12/27/2011 Quit 2013 Type 2 diabetes mellitus without complication, without long-term current use of insulin ([facility]) 04/12/2018 Venous insufficiency, peripheral 01/06/2014 Vitamin D deficiency 12/31/2014 Weakness of both lower extremities 12/16/2022 Previous Surgical History PAST SURGICAL HISTORY Procedure Laterality Date ANES ARTHROSCOPIC TOTAL SHOULDER REPLACEMENT Right 01/28/2013 [facility] - complete right shoulder replaceement ARTHRD [...] cyst removal JOINT REPLACEMENT HX Right shoulder OOTO-ELYA-TNPNBUKJAKMF-TOTAL REPLACE/BOTH COMPART Left 08/21/2023 [facility] W/O FACETEC [...] two times a day with meals. Per [facility] dapagliflozin propanediol (FARXIGA) 10 mg [...] by mouth two times a day. . mnvuxaivxeb-deoqhfvtd-zowbkcnj (TRELEGY ELLIPTA) 100-62.5-25 mcg inhalation powder inhale [...] 416.8, ICD10: I27.21 -Follows with cardiology at [facility] 5. Chronic obstructive pulmonary disease, unspecified COPD type (HCC) - ICD9: 496, ICD10: J44.9 -Continue current medication -Stable 6. Atrial fibrillation, unspecified type (HCC) - ICD9: 427.31, ICD10: I48.91 -Follows with cardiology at [facility] 7. Inflammatory polyarthropathy (HCC) - ICD9: 714.9, [...] 427.31, ICD10: I48.0 --Follows with cardiology at [facility] 13. Essential hypertension - ICD9: 401.9, ICD10: [...] 278.00, ICD10: E66.811 -Weight stable Rebecca Jansen APRN.WASTEWATER DESIGN ENGINEER documented in this encounterChildren'S [facility]02-25-2025 Telephone encounter Note * Telephone Encounter - Lillian Flanagan - 11/12/2024 9:19 AM EST LVM for pt to call and schedule 4 MO OV and Myeloma labs week prior. Lillian Flanagan [facility]02-25-2025 Miscellaneous Notes* Telephone Encounter - Lillian Flanagan - 11/12/2024 9:19 AM EST LVM for pt to call and schedule 4 MO OV and Myeloma labs week prior. Lillian Flanagan * Telephone Encounter - Murray Mooney MD - 11/12/2024 8:49 AM EST Called pt reviewed myeloma labs. Will recheck in 4 months. Murray Mooney MD November 12, 2024 documented in this encounterChildren'S [facility]02-25-2025 Telephone encounter Note * Telephone Encounter - Murray Mooney MD - 11/12/2024 8:49 AM EST Called pt reviewed myeloma labs. Will recheck in 4 months. Murray Mooney MD November 12, 2024 [facility]01-15-2025 Telephone encounter Note* Telephone Encounter - Ovidio Vincent MD - 10/02/2024 5:06 PM EST The following approved medication requests have been transmitted electronically. Requested Prescriptions Signed Prescriptions Disp Refills dulaglutide (TRULICITY) 3 mg/0.5 mL pen injector 12 Each 1 Sig: Inject 3 mg subcutaneously one time a week. Inject once per week. Discard Pen After Authorizing Provider: OVIDIO VINCENT MD [facility]01-15-2025 Miscellaneous Notes* Telephone Encounter - Ovidio Vincent [...] 02, 2024 2:51 PM documented in this encounterChildren'S Hospital For [facility]01-15-2025 Telephone encounter Note * Telephone Encounter - Ovidio Vincent MD - 10/02/2024 5:05 PM EST The following approved medication requests have been transmitted electronically. Requested Prescriptions Signed Prescriptions Disp Refills atorvastatin (LIPITOR) 40 mg tablet 90 tablet 1 Sig: Take 1 tablet by mouth once daily. Authorizing Provider: OVIDIO VINCENT MD [facility]01-15-2025 Miscellaneous Notes* Telephone Encounter - Ovidio Vincent [...] Take 1 tablet by mouth once daily. Mdaison Hyde LPN October 02, 2024 2:48 PM documented in this encounterChildren'S Hospital [facility]01-15-2025 Telephone encounter Note * Telephone Encounter - [...] Hernandez LPN October 02, 2024 2:51 PM [facility]01-15-2025 Telephone encounter Note* Telephone Encounter - [place] [...] Hyde LPN October 02, 2024 2:48 PM [facility]01-14-2025 NoteHNO ID: [id number] Author: REBECCA CHEEK MA Service: ? Author Type: Auto Apprentice Mechanic Type: Progress Notes Filed: 10/01/2024 13:25 Note [...] Rebecca Cheek MA October 01, 2024 1:22 [facility]01-14-2025 NoteHNO ID: [id number] Author: ADONIS THEODORE MA Service: ? Author Type: Auto Apprentice Mechanic Type: Progress Notes Filed: 10/01/2024 07:34 Note Text: POPULATION HEALTH NAVIGATION OUTREACH Action/FYI GENE result received by fax from Dr. Juve Reza. Exam date 03/26/24. Result scanned and Health Maintenance updated.[facility]01-14-2025 History of Present illness Narrative* Adonis Theodore MA - 10/01/2024 7:29 AM EST POPULATION HEALTH NAVIGATION OUTREACH Action/FYI GENE result received by fax from Dr. Juve Reza. Exam date 03/26/24. Result scanned and Health Maintenance updated. documented in this encounterChildren'S Hospital For Rehabilitation01-14-2025 NoteHNO ID: [id number] Author: ADONIS THEODORE MA Service: ? Author Type: Auto Apprentice Mechanic Type: Progress Notes Filed: 10/01/2024 07:27 Note Text: POPULATION HEALTH NAVIGATION OUTREACH GENE result received by fax from Dr. Juve Reza. Exam date 03/26/24. Result scanned and Health Maintenance updated. Adonis Theodore Population Health Navigator [facility]IP[facility]-13-2025 NoteHNO ID: [id number] Author: REBECCA CHEEK MA Service: ? Author Type: Auto Apprentice Mechanic Type: Progress Notes Filed: 09/30/2024 14:44 Note Text: POPULATION HEALTH NAVIGATION OUTREACH Action/FYI Provider responded and declined labs. KED is calendar year and addressed as such. FOBT was due this month per Navigation Signature: Rebecca Cheek MA September 30, 2024 2:42 [facility]01-13-2025 History of Present illness Narrative* Rebecca [...] Colorectal Cancer Screening KED 11/04/2024 in [facility] with LAB [facility] - LAB* 11/12/2024 in [facility] with MURRAY MOONEY - 6 MO FOLLOW UP/LABS 11/12* 11/18/2024 in [facility] with REBECCA JANSEN - 6 month follow up, Please address due care gapsand HCC gap closure [facility] - 6 month follow up 06/09/2025 in [facility] with OVIDIO VINCENT - Medicare Wellness, Please address due care gap and HCC gap closure HCC related Navigation Signature: Rebecca Cheek MA September 30, 2024 11:18 AM documented in this encounterChildren'S Hospital For [facility]01-13-2025 NoteHNO ID: [id number] Author: OVIDIO VINCENT MD Service: ? Author [...] these will be addressed at his next appt.[facility]01-13-2025 NoteHNO ID: [id number] Author: REBECCA CHEEK MA Service: ? Author Type: Auto Apprentice Mechanic Type: Progress Notes Filed: 09/30/2024 11:49 Note [...] A1C already pending for upcoming appointment -- KECasey pended for PCP review. HCC: Yes BP [...] Colorectal Cancer Screening KED 11/04/2024 in LAB [facility] with LAB [facility] - LAB* 11/12/2024 in [facility] with MURRAY MOONEY - 6 MO FOLLOW UP/LABS 11/12* 11/18/2024 in [facility] with REBECCA JANSEN - 6 month follow up, Please address due care gaps and HCC gap closure 11/25/2024 in [facility] with HAYDE WARD - 6 month follow up 06/09/2025 in [facility] with OVIDIO VINCENT - Medicare Wellness, Please address due care gap and HCC gap closure HCC related Navigation Signature: Rebecca Cheek MA September 30, 2024 11:18 [facility]01-13-2025 NotePatient Outreach (NETNAV) RONNIE YARBROUGH I ([id number]) 1950 M Date Time Provider Department 09/30/24 REBECCA CHEEK During your visit today, we recorded the following information about you: Rebecca Cheek MA 09/30/2024 11:49 AM Signed POPULATION HEALTH NAVIGATION OUTREACH Action/ Patient is on [employer] list for below and needs appointment [...] Colorectal Cancer Screening KED 11/04/2024 in LAB [facility] with LAB [facility] - LAB* 11/12/2024 in [facility] with MURRAY MOONEY - 6 MO FOLLOW UP/LABS 11/12* 11/18/2024 in [facility] with REBECCA JANSEN - 6 month follow up, Please address due care gaps and HCC gap closure 11/25/2024 in [facility] with HAYDE WARD - 6 month follow up 06/09/2025 in [facility] with OVIDIO VINCENT - Medicare [...] Visit: Population Health Navigation Outreach [[id number]] Cmt: [facility] Prescriptions as of 10/01/2024 - omeprazole (PRILOSEC) 40 mg capsule TAKE ONE CAPSULE BY MOUTH ONCE DAILY ON AN EMPTY STOMACH - carvedilol (COREG) 12.5 mg tablet Take 1 tablet by mouth two times a day with meals. Per [facility] - dapagliflozin propanediol (FARXIGA) 10 mg tablet Take 1 tablet by mouth once daily. Take one daily in the morning - doxycycline monohydrate (MONODOX) 100 mg capsule TAKE 1 CAPSULE BY MOUTH TWICE DAILY FOR 28 DAYS - oxyCODONE IR (ROXICODONE) 5 mg imme (more content not included)...[facility]12-17-2024 Telephone encounter Note* Telephone Encounter - Ovidio Vincent MD - 09/03/2024 11:38 AM EST The following approved medication requests have been transmitted electronically. Requested Prescriptions Signed Prescriptions Disp Refills omeprazole (PRILOSEC) 40 mg capsule 90 capsule 1 Sig: TAKE ONE CAPSULE BY MOUTH ONCE DAILY ON AN EMPTY STOMACH Authorizing Provider: OVIDIO VINCENT MD [facility]12-17-2024 Miscellaneous Notes* Telephone Encounter - Ovidio Vincent [...] 03, 2024 8:38 AM documented in this encounterChildren[facility]12-17-2024 Telephone encounter Note * Telephone Encounter - [...] Liu LPN September 03, 2024 8:38 AM [facility]11-22-2024 NoteHNO ID: [id number] Author: SLIME HERNANDEZ LPN Service: ? Author Type: LICENSED NURSE Type: Progress Notes Filed: 08/09/2024 09:09 Note Text: Scan on 08/08/2024 5:09 PM by ProviderJustyn PA-C: [facility] History of Present illness Narrative* Slime Hernandez LPN - 08/09/2024 9:09 AM EST Scan on 08/08/2024 5:09 PM by Justyn Clark PA-C: Consultation - Cardiology documented in this encounterChildren'S [facility]11-18-2024 Telephone encounter Note * Telephone Encounter - Jennie Delaney RN - 08/05/2024 9:42 AM EST Patient notified of results. Patient verbalizes understanding. Jennie Delaney RN [facility]11-18-2024 Miscellaneous Notes* Telephone Encounter - Jennie Delaney [...] also came back normal. documented in this encounterChildren'S Hospital For Rehabilitation11-18-2024 Telephone encounter Note * Telephone Encounter - Ramu Alanis MA - 08/05/2024 9:39 AM EST Left message for patient to contact office. Ramu Alanis MA [facility]11-18-2024 Telephone encounter Note* Telephone Encounter - Ovidio Vincent MD - 08/05/2024 9:27 AM EST Let patient now his iron levels are ok and his CBC does not show anemia. His CRP that Leslye had ordered also came back normal. [facility]10-24-2024 History of Present illness Narrative* Marta Lui RN - 07/11/2024 2:15 PM EDT [facility] Telephonic Outreach Provider Action/FYI N/A 3rd attempt [...] more often than normal? No Based on chimney mechanic, the following disposition is advised: No symptoms or symptoms present, not severe. Routed to: No Action Needed MACO Education Provided this Outreach: No Mr. Yarbrough feels comfortable reaching out to his medical team with any questions or concerns and is asking to be removed from [facility] home monitoring at this time. Marta Lui RN July 11, 2024 2:21 PM documented in this encounterChildren'S Hospital For Rehabilitation10-24-2024 NoteHNO ID: [id number] Author: MARTA LUI RN Service: ? Author Type: Registered Nurse Type: Progress Notes Filed: 07/11/2024 14:25 Note Text: [facility] Telephonic Outreach Provider Action/FYI N/A 3rd attempt [...] more often than normal? No Based on chimney mechanic, the following disposition is advised: No symptoms or symptoms present, not severe. Routed to: No Action Needed MACO Education Provided this Outreach: No Mr. Yarbrough feels comfortable reaching out to his medical team with any questions or concerns and is asking to be removed from [facility] home monitoring at this time. Marta Lui RN July 11, 2024 2:21 [facility]10-24-2024 Telephone encounter Note* Telephone Encounter - [...] Hernandez LPN July 11, 2024 7:44 AM [facility]10-24-2024 Miscellaneous Notes* Telephone Encounter - Slime Hernandez [...] 11, 2024 7:44 AM documented in this encounterChildren'S Hospital For Rehabilitation10-24-2024 NotePatient Outreach ([facility]) RONNIE YARBROUGH I ([id number]) 1950 M Date Time Provider Department 07/11/24 [...] more often than normal? No Based on chimney mechanic, the following disposition is advised: No symptoms or symptoms present, not severe. Routed to: No Action Needed MACO Education Provided this Outreach: No Mr. Yarbrough feels comfortable reaching out to his medical team with any questions or concerns and is asking to be removed from [facility] home monitoring at this time. Marta Lui [...] two times a day with meals. Per [facility] - atorvastatin (LIPITOR) 40 mg [...] mouth two times a day. . - wwyeebomvlc-kafheyggi-qaagfofp (TRELEGY ELLIPTA) 100-62.5-25 mcg inhalation powder inhale [...] [E87.5] 06/18/2018 2018 Chemothe (more content not included)...[facility]10-15-2024 Instructions* Patient Instructions* Esvin Marcus - 07/02/2024 [...] (or decreased sensation in your feet) a bullion weigher should always cut your toenails. Be Careful [...] Go to your health care provider or bullion weigher to treat these conditions. documented in this encounterChildren'S Hospital For Rehabilitation10-15-2024 NoteHNO ID: [id number] Author: ESVIN MARCUS, ? Service: ? 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 Day: +12; Engrafted Protocol(s): 3422 1C Preparative regimen: melphalan Mobilization regimen: neupogen and plerixafor Stem cell source: apheresis CD34 cell dose (x10e6/kg): 5.14 Date of transplant: 06/15/2018 Bilateral leg edema 09/30/2022 Cancer of the skin, 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 Cervical spondylosis without myelopathy Chronic renal failure, stage 3a ([facility]) 03/30/2023 COPD (chronic obstructive pulmonary disease) ([facility]) 03/15/2021 Diabetic eye exam ([facility]) 09/09/2021 Last done 09/09/[address] Juve Reza Dilated aortic root ([facility]) 06/04/2023 Seeing [facility] Discoloration and thickening of nails both feet 10/06/2021 ED (erectile dysfunction) of organic origin 07/04/2022 Enlarged LA (left atrium) 06/04/2023 Seeing [facility] Essential hypertension 06/13/2018 -On lisinopril 10mg daily ( home med) -Will d/c for now given hyperkalemia . 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 --ppx ACV and cipro Increased weakness when ambulating 12/16/2022 Inflammatory polyarthropathy ([facility]) Leg DVT (deep venous thromboembolism), acute, left ([facility]) 01/02/2018 --acute DVT gastrocnemius found [...] chemotherapy can resume at discharge Multiple myeloma ([facility]) 11/28/2017 Multiple myeloma in remission ([facility]) Obesity, Class I, BMI 30-34.9 10/01/2012 Osteoarthritis of both hands Pancytopenia due to chemotherapy ([facility]) 06/25/2018 --Transfuse PRBC and platelets per protocol --GCSF Peripheral autonomic neuropathy in disorders classified elsewhere 06/07/2005 Pulmonary hypertension, unspecified ([facility]) 10/23/2019 Spinal stenosis, lumbar region, without neurogenic claudication 11/13/2006 Tobacco abuse 12/27/2011 Quit 2012 Type 2 diabetes mellitus without complication, without long-term current use of insulin ([facility]) 04/12/2018 Venous insufficiency, peripheral 01/06/2014 [...] two times a day with meals. Per [facility] atorvastatin (LIPITOR) 40 mg tablet [...] daily. Take one daily in the morning vdgcuntmrcr-xnvvepppr-kaueacam (TRELEGY ELLIPTA) 100-62.5-25 mcg inhalation powder inhale 1 puff by mouth and INTO THE BAMBI (more content not included)... 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 Day: +12; Engrafted Protocol(s): 3422 1C Preparative regimen: melphalan Mobilization regimen: neupogen and plerixafor Stem cell source: apheresis CD34 cell dose (x10e6/kg): 5.14 Date of transplant: 06/15/2018 Bilateral leg edema 09/30/2022 Cancer of the skin, 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 Cervical spondylosis without myelopathy Chronic renal failure, stage 3a ([facility]) 03/30/2023 COPD (chronic obstructive pulmonary disease) ([facility]) 03/15/2021 Diabetic eye exam ([facility]) 09/09/2021 Last done 09/09/[address] Juve Reza Dilated aortic root (HCC) 06/04/2023 Seeing [facility] Discoloration and thickening of nails both [...] transfusion Hypomagnesemia 04/22/2021 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 --ppx ACV and cipro Increased weakness when ambulating 12/16/2022 Inflammatory polyarthropathy (HCC) Leg DVT (deep venous thromboembolism), acute, left ([facility]) 01/02/2018 --acute DVT gastrocnemius found [...] chemotherapy can resume at discharge Multiple myeloma ([facility]) 11/28/2017 Multiple myeloma in remission ([facility]) Obesity, Class I, BMI 30-34.9 10/01/2012 Osteoarthritis of both hands Pancytopenia due to chemotherapy ([facility]) 06/25/2018 --Transfuse PRBC and platelets per protocol --GCSF Peripheral autonomic neuropathy in disorders classified elsewhere 06/07/2005 Pulmonary hypertension, unspecified ([facility]) 10/23/2019 Spinal stenosis, lumbar region, without neurogenic claudication 11/13/2006 Tobacco abuse 12/27/2011 Quit 2012 Type 2 diabetes mellitus without complication, without long-term current use of insulin ([facility]) 04/12/2018 Venous insufficiency, peripheral 01/06/2014 [...] daily. Take one daily in the morning phsctarigxu-frssvqiyv-nptaomlv (TRELEGY ELLIPTA) 100-62.5-25 mcg inhalation powder inhale [...] ANES ARTHROSCOPIC TOTAL SHOULDER REPLACEMENT Right 01/28/2013 [facility] - complete right shoulder replaceement ARTHRD [...] cyst removal JOINT REPLACEMENT HX Right shoulder SHSC-ULBT-GPJCJLUZCVAX-TOTAL REPLACE/BOTH COMPART Left 08/21/2023 [facility] W/O FACETEC FORAMOT/DSC 1/ VRT SGM CRV 2007 Laminectomy, cervical PAST [...] Objective: Patient presents to clinic ambulating in [facility] Constitutional: Pt is a well developed 74 [...] complication, without long-term current use of insulin ([facility]) (I73.9) PAD (peripheral artery disease) ([facility]) (L84) Callus Plan: 1. Patient [...] months Esvin Marcus DPM documented in this encounterChildren'S [facility]10-10-2024 NoteHNO ID: [id number] Author: MARTA LUI RN Service: ? Author Type: Registered Nurse Type: Progress Notes Filed: 06/27/2024 14:34 Note Text: [facility] Telephonic Outreach Provider Action/MAGDAI N/A 2nd attempt Contacted for: Routine Telephonic Outreach Contact made with patient: No, left message. Marta Lui RN June 27, 2024 2:34 [facility]10-10-2024 History of Present illness Narrative* Marta Lui RN - 06/27/2024 2:31 PM EDT [facility] Telephonic Outreach Provider Action/MAGDAI N/A 2nd attempt Contacted for: Routine Telephonic Outreach Contact made with patient: No, left message. Marta Lui RN June 27, 2024 2:34 PM documented in this encounterChildren'S Hospital [facility]10-10-2024 NotePatient Outreach ([facility]) RONNIE YARBROUGH I ([id number]) 1950 M Date Time Provider Department 06/27/24 MARTA LUI During your visit today, we [...] Take one daily in the morning - abdquzjiahi-etyaltaqt-aoyieyuz (TRELEGY ELLIPTA) 100-62.5-25 mcg inhalation powder inhale [...] vitamin B12 [E53.8] 08 (more content not included)...[facility]10-09-2024 Telephone encounter Note* Telephone Encounter - Chanelle Nolan RN - 06/26/2024 9:51 AM EDT Pt called and is notified of providers results and instructions. Pt voices understanding. He statesthey are back in [place], and he will come in to get lab work done. Chanelle Nolan RN [facility]10-09-2024 Miscellaneous Notes* Telephone Encounter - Chanelle Nolan RN - 06/26/2024 9:51 AM EDT Pt called and is notified of providers results and instructions. Pt voices understanding. He statesthey are back in [place], and he will come in to get lab work done. Chanelle Nolan RN * Telephone Encounter - Leslye Winter PA-C - 06/26/2024 8:44 AM EDT Please find out when patient is back in [place]. The infectious disease specialist just got back to . They do not need to see him. It looks like they already cancelled the appointment. If still taking atb, can stop. I would like to get repeat labs once they are in [place]. Thanks. Leslye Winter PA-C documented in this encounterChildren'S Hospital For Rehabilitation10-09-2024 Telephone encounter Note * Telephone Encounter - Leslye Winter PA-C - 06/26/2024 8:44 AM EDT Please find out when patient is back in [place]. The infectious disease specialist just got back to . They do not need to see him. It looks like they already cancelled the appointment. If still taking atb, can stop. I would like to get repeat labs once they are in [place]. Thanks. Leslye Winter PA-C [facility]09-26-2024 NoteHNO ID: [id number] Author: MARTA LUI RN Service: ? Author Type: Registered Nurse Type: Progress Notes Filed: 06/13/2024 12:04 Note Text: [facility] Telephonic Outreach Provider Mahi/ANJU N/A Contacted for: Routine Telephonic Outreach AND SDOH screening for food insecurity and transportation Contact made with patient: No, left message. Spoke with spouse who states they are out in [place] currently. Requests a return call in 2 weeks. Marta Lui RN June 13, 2024 12:03 [facility]09-26-2024 History of Present illness Narrative* Marta Lui RN - 06/13/2024 12:00 PM EDT [facility] Telephonic Outreach Provider Mhai/ANJU N/A Contacted for: Routine Telephonic Outreach & SDOH screening for food insecurity and transportation Contact made with patient: No, left message. Spoke with spouse who states they are out in [place] currently. Requests a return call in 2 weeks. Marta Lui RN June 13, 2024 12:03 PM documented in this encounterChildren'S Hospital [facility]09-26-2024 NotePatient Outreach ([facility]) RONNIE YARBROUGH I ([id number]) 1950 M Date Time Provider Department 06/13/24 MARTA LUI During your visit today, we recorded the following information about you: Marta Lui RN 06/13/2024 12:04 PM Signed [facility] Telephonic Outreach Provider Mahi/ANJU N/A Contacted for: Routine Telephonic Outreach AND SDOH screening for food insecurity and transportation Contact made with patient: No, left message. Spoke with spouse who states they are out in [place] currently. Requests a return call in 2 weeks. Marta Lui RN June 13, 2024 12:03 PM Allergies As of Date: 06/13/2024 (No Known Allergies) Date Reviewed: 05/30/2024 Reviewed by: Ovidio Vincent MD - Fully Assessed Reason for Visit: Community Monitoring Outreach [Other] Cmt: Telephonic Outreach [facility] Home Monitoring Prescriptions as of 06/13/2024 - [...] two times a day with meals. Per [facility] - atorvastatin (LIPITOR) 40 mg [...] Take one daily in the morning - zszmtrfcqdy-yhuiabsni-yoyyuasz (TRELEGY ELLIPTA) 100-62.5-25 mcg inhalation powder inhale [...] (H*03/15/2021 Allergic rhinitis [J30.9] (more content not included)...[facility]09-12-2024 Instructions* Patient Instructions* Ovidio Vincent MD - [...] review all the medicines you take, even gphn-vfz-ckusndw medicines. As you get older, the way [...] have certain medical conditions. documented in this encounterChildren'S Hospital [facility]09-12-2024 History of Present illness Narrative* Ovidio Vincent [...] Halima Cohen (Rn), RN (Inactive) as Specialty Front Desk Host (Hospice & Palliative Medicine) Nancie Low, ALICIA as Specialty Front Desk Host (Hematology/Oncology) Marta Lui, ALICIA as Manager Cardiovascular Murray Mooney MD (Hematology/Oncology) Leno Márquez MD (Orthopedics) Loretta Leon PA-C (Pulmonary and Critical Care Medicine) Dr. Ward: [facility] Medical/Family history review Reviewed and updated [...] of deep veins of both lower extremities ([facility]) Comment: Eliquis started 02/2023, can stop 08/202309/30/2022: Advance directive discussed with patient Comment: Discussed 09/2022: up to date 03/15/2021: Allergic rhinitis 12/16/2022: At high risk for falls 06/13/2018: 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[facility]) Comment: Day: +12; Engrafted Protocol(s): 3422 1C Preparative regimen: melphalan Mobilization regimen: neupogen and plerixafor Stem cell source: apheresis CD34 cell dose (x10e6/kg): 5.14 Date of transplant: 06/15/2018 09/30/2022: Bilateral leg edema 04/21/2021: Cancer of the skin, basal cell Comment: excised 04/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 No date: Cervical spondylosis without myelopathy 03/30/2023: Chronic renal failure, stage 3a ([facility]) 03/15/2021: COPD (chronic obstructive pulmonary disease) ([facility]) 09/09/2021: Diabetic eye exam ([facility]) Comment: Last done 09/09/[address] Juve Reza 06/04/2023: Dilated aortic root ([facility]) Comment: Seeing [facility] 10/06/2021: [...] 04/22/2021: Hypomagnesemia 06/13/2018: 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[facility]) Comment: --ppx ACV and cipro 12/16/2022: Increased weakness when ambulating No date: Inflammatory polyarthropathy ([facility]) 01/02/2018: Leg DVT (deep venous thromboembolism), acute, left ([facility]) Comment: --acute DVT gastrocnemius found [...] can resume at discharge 11/28/2017: Multiple myeloma ([facility]) No date: Multiple myeloma in remission ([facility]) 10/01/2012: Obesity, Class I, BMI 30-34.9 No date: Osteoarthritis of both hands 06/25/2018: Pancytopenia due to chemotherapy ([facility]) Comment: --Transfuse PRBC and platelets per protocol --GCSF 06/07/2005: Peripheral autonomic neuropathy in disorders classified elsewhere 10/23/2019: Pulmonary hypertension, unspecified ([facility]) 11/13/2006: Spinal stenosis, lumbar region, without neurogenic claudication 12/27/2011: Tobacco abuse Comment: Quit 201204/12/2018: Type 2 diabetes mellitus without complication, without long-term current use of insulin (HCC) 01/06/2014: Venous insufficiency, peripheral 12/31/2014: Vitamin D deficiency 12/16/2022: Weakness of both lower extremities Previous Surgical History PAST SURGICAL HISTORY 01/28/2013: ANES ARTHROSCOPIC TOTAL SHOULDER REPLACEMENT; Right Comment: [facility] - complete right shoulder replaceement 2008: [...] JOINT REPLACEMENT HX; Right Comment: shoulder 08/21/2023: UXZK-KUXZ-ALGZSXAVBRLA-TOTAL REPLACE/BOTH COMPART; Left 2008: [facility] W/O FACETEC FORAMOT/DSC 1/2 VRT SGM [...] daily. Take one daily in the morning vxyncgawisp-izbqetpmt-tumumvhr (TRELEGY ELLIPTA) 100-62.5-25 mcg inhalation powder inhale [...] - 4.00 k/uL 0.87 (L) 0.82 (L) Garfield% % 7.0 6.6 Abs Garfield <0.87 k/uL 0.62 0.45 Eosin% % 0.2 [...] Negative Ketones, Urine Negative Trace ! Specific [place], Ur 1.005 - 1.030 1.032 (H) Hemoglobin/Blood,Ur [...] 0.17 Vitamin B12 232 - 1,245 pg/mL [phone] Vitamin D 25 Hydroxy 31.0 - 80.0 [...] which included preparing to see the patient, nwuz-qt-ryca patient care, completing clinical documentation, performing a medically appropriate examination, counseling and educating the patient/family/caregiver and ordering medications, tests, or procedures. Ovidio Vincent MD The sensitive examination was discussed with the Patient or Patient's Authorized Rug Designer. Asapplicable, any other physician, advance practice provider, medical student, or other health professional student that will be observing or involved in the sensitive examination for educational or training purposes was discussed with the Patient or Authorized Rug Designer. The Patient or Authorized Rug Designer has agreed to proceed with the sensitive examination. (Sensitive examination includes inspection and/or palpation of the breasts, pelvis, prostate and anorectal regions) documented in this encounterChildren'S Hospital For Rehabilitation09-12-2024 NoteHNO ID: [id number] Author: OVIDIO VINCENT MD Service: ? Author [...] Halima Cohen (Rn), RN (Inactive) as Specialty Front Desk Host (Hospice AND Palliative Medicine) Nancie Low, ALICIA as Specialty Front Desk Host (Hematology/Oncology) Marta Lui, ALICIA as Manager Cardiovascular Murray Mooney MD (Hematology/Oncology) Leno Márquez MD (Orthopedics) Loretta Leon PA-C (Pulmonary and Critical Care Medicine) Dr. Ward: [facility] Medical/Family history review Reviewed and [...] of deep veins of both lower extremities ([facility]) Comment: Eliquis started 02/2023, can stop 08/202309/30/2022: Advance directive discussed with patient Comment: Discussed 09/2022: up to date 03/15/2021: Allergic rhinitis 12/16/2022: At high risk for falls 06/13/2018: 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[facility]) Comment: Day: +12; Engrafted Protocol(s): 3422 1C Preparative regimen: melphalan Mobilization regimen: neupogen and plerixafor Stem cell source: apheresis CD34 cell dose (x10e6/kg): 5.14 Date of transplant: 06/15/2018 09/30/2022: Bilateral leg edema 04/21/2021: Cancer of the skin, basal cell Comment: excised 04/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 No date: Cervical spondylosis without myelopathy 03/30/2023: Chronic renal failure, stage 3a ([facility]) 03/15/2021: COPD (chronic obstructive pulmonary disease) ([facility]) 09/09/2021: Diabetic eye exam ([facility]) Comment: Last done 09/09/[address] Juve Reza 06/04/2023: Dilated aortic root ([facility]) Comment: Seeing [facility] 10/06/2021: Discoloration and thickening of nails both feet 07/04/2022: ED (erecti (more content not included)...[facility] 05-30-2024 Telephone encounter Note* Telephone Encounter - Slime Hernandez LPN - 05/30/2024 9:00 AM EDT Patient notified of results and provider's instructions. Patient verbalizes understanding. Slime Hernandez LPN [facility]09-12-[facility]24 Miscellaneous Notes* Telephone Encounter - Slime Hernandez [...] US every few years. documented in this encounterChildren'S Hospital For Rehabilitation09-11-2024 Telephone encounter Note * Telephone Encounter - Ovidio Vincent MD - 05/29/2024 9:05 PM EDT Let patient know the US of his neck arteries showed mild narrowing on both sides but not significant enough to cause any symptoms or a stroke. We will repeat the US every few years. [facility] Telephone encounter Note* Telephone Encounter - Ramu Alanis MA - 05/29/2024 1:22 PM EDT Patient notified and voiced understanding. Ramu Alanis MA [facility]09-11-2024 Miscellaneous Notes* Telephone Encounter - Ramu Alanis MA - 05/29/2024 1:22 PM EDT Patient notified and voiced understanding. Ramu Alanis MA * Telephone Encounter - Ovidio Vincent MD - 05/29/2024 12:54 PM EDT Let patient know the MRI of his brain was normal with some expected normal age related changes. documented in this encounterChildren[facility]-11-[facility] Telephone encounter Note * Telephone Encounter - Ovidio Vincent MD - 05/29/2024 12:54 PM EDT Let patient know the MRI of his brain was normal with some expected normal age related changes. [facility] History of Present illness Narrative* Adonis Bryant, [...] PATIENT PRESENTS WITH AN IMPLANTABLE OR ATTACHED RUBBER ROLLER GRINDER: No RADIOLOGY DEPARTMENT: MR; Exam(s) Completed: Head: Routine Brain PERIPHERAL IV DATA: Not applicable SIGNED BY: ARNIE Montelongo) May 29, 2024 9:20 AM documented in this encounterChildren'S Hospital For Rehabilitation09-11-2024 NoteHNO ID: [id number] Author: ADONIS BRYANT RT(R) Service: ? Author Type: Technologist Type: Progress [...] PATIENT PRESENTS WITH AN IMPLANTABLE OR ATTACHED RUBBER ROLLER GRINDER: No RADIOLOGY DEPARTMENT: MR; Exam(s) Completed: Head: Routine Brain PERIPHERAL IV DATA: Not applicable SIGNED BY: RT Reginald(Luciano) May 29, 2024 9:20 [facility]09-09-2024 History of Present illness Narrative* Hayde Ward MD - 05/27/2024 10:00 AM EDT Images from the original note were not included. . [facility] [place] Note Patient name: Ronnie Yarbrough PCP: Ovidio Vincent MD CC: Follow-up COPD HPI: Ronnie Yarbrough 73 year old male former [id number] smoker, quitting in 2011 with PMH significantfor [...] myelopathy 03/30/2023: Chronic renal failure, stage 3a ([facility]) 03/15/2021: COPD (chronic obstructive pulmonary disease) ([facility]) 09/09/2021: Diabetic eye exam ([facility]) Comment: Last done 09/09/[address] Juve Reza 06/04/2023: Dilated aortic root ([facility]) Comment: Seeing [facility] 10/06/2021: [...] 04/22/2021: Hypomagnesemia 06/13/2018: 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[facility]) Comment: --ppx ACV and cipro 12/16/2022: Increased weakness when ambulating No date: Inflammatory polyarthropathy ([facility]) 01/02/2018: Leg DVT (deep venous thromboembolism), acute, left ([facility]) Comment: --acute DVT gastrocnemius found [...] can resume at discharge 11/28/2017: Multiple myeloma ([facility]) No date: Multiple myeloma in remission ([facility]) 10/01/2012: Obesity, Class I, BMI 30-34.9 No date: Osteoarthritis of both hands 06/25/2018: Pancytopenia due to chemotherapy ([facility]) Comment: --Transfuse PRBC and platelets per protocol --GCSF 06/07/2005: Peripheral autonomic neuropathy in disorders classified elsewhere 10/23/2019: Pulmonary hypertension, unspecified ([facility]) 11/13/2006: Spinal stenosis, lumbar region, without neurogenic claudication 12/27/2011: Tobacco abuse Comment: Quit 201204/12/2018: Type 2 diabetes mellitus without complication, without long-term current use of insulin ([facility]) 01/06/2014: Venous insufficiency, peripheral 12/31/2014: [...] daily. Take one daily in the morning nkgvtyiznaz-newryznyo-qcbuklcd (TRELEGY ELLIPTA) 100-62.5-25 mcg inhalation powder inhale [...] require further surveillance Hayde Ward MD [facility] [place] documented in this encounterChildren'S Hospital For Rehabilitation09-09-2024 NoteHNO ID: [id number] Author: HAYDE WARD MD Service: ? Author Type: Physician Type: Progress Notes Filed: 05/27/2024 11:56 Note Text: . [facility] [place] Note Patient name: Ronnie Yarbrough PCP: Ovidio Vincent MD CC: Follow-up COPD HPI: Ronnie Yarbrough 73 year old male former [id number]-trgu smoker, quitting in 2011 with PMH significant [...] of deep veins of both lower extremities ([facility]) Comment: Eliquis started 02/2023, can stop 08/202309/30/2022: Advance directive discussed with patient Comment: Discussed 09/2022: up to date 03/15/2021: Allergic rhinitis 12/16/2022: At high risk for falls 06/13/2018: 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[facility]) Comment: Day: +12; Engrafted Protocol(s): 3422 1C Preparative regimen: melphalan Mobilization regimen: neupogen and plerixafor Stem cell source: apheresis CD34 cell dose (x10e6/kg): 5.14 Date of transplant: 06/15/2018 09/30/2022: Bilateral leg edema 04/21/2021: Cancer of the skin, basal cell Comment: excised 04/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 No date: Cervical spondylosis without myelopathy 03/30/2023: Chronic renal failure, stage 3a ([facility]) 03/15/2021: COPD (chronic obstructive pulmonary disease) ([facility]) 09/09/2021: Diabetic eye exam ([facility]) Comment: Last done 09/09/[address] Juve Reza 06/04/2023: Dilated aortic root ([facility]) Comment: Seeing [facility]io 10/06/2021: [...] 04/22/2021: Hypomagnesemia 06/13/2018: 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[facility]) Comment: --ppx ACV and cipro 12/16/2022: Increased weakness when ambulating No date: Inflammatory polyarthropathy ([facility]) 01/02/2018: Leg DVT (deep venous thromboembolism), acute, left ([facility]) Comment: --acute DVT gastrocnemius found [...] can resume at discharge 11/28/2017: Multiple myeloma ([facility]) No date: Multiple myeloma in remission ([facility]) 10/01/2012: Obesity, Class I, BMI 30-34.9 No date: Osteoarthritis of both hands 06/25/2018: Pancytopenia due to chemotherapy ([facility]) Comment: --Transfuse PRBC and platelets per protocol --GCSF 06/07/2005: Peripheral autonomic neuropathy in disorders classified elsewhere 10/23/2019: Pulmonary hypertension, unspecified ([facility]) 11/13/2006: Spinal stenosis, lumbar region, without ne (more content not included)...[facility]09-09-2024 NoteHNO ID: [id number] Author: LESLYE WINTER PA-C Service: ? Author Type: Physician Privacy Analyst Type: Progress Notes Filed: 05/27/2024 08:40 Note Text: Chief Complaint Patient presents with: Hospital F/U HPI Ronnie Yarbrough is a 73 year old male who presents here today for Hospital Discharge Follow up.. Patient was admitted to [facility] in [place] for septic arthritis of right elbow and [...] is leaving next week for vacation in [place]. Over patient states symptoms have significantly improved. No pain. No fevers. While in hospital, he was also found to be anemic and his BP was low. His bp medications were decreased. Past medical history, appointments, medications, allergies reviewed. Previous Medical History PAST MEDICAL HISTORY 02/24/2023: Acute thromboembolism of deep veins of both lower extremities ([facility]) Comment: Eliquis started 02/2023, can stop 08/202309/30/2022: Advance directive discussed with patient Comment: Discussed 09/2022: up to date 03/15/2021: Allergic rhinitis 12/16/2022: At high risk for falls 06/13/2018: 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[facility]) Comment: Day: +12; Engrafted Protocol(s): 3422 1C Preparative regimen: melphalan Mobilization regimen: neupogen and plerixafor Stem cell source: apheresis CD34 cell dose (x10e6/kg): 5.14 Date of transplant: 06/15/2018 09/30/2022: Bilateral leg edema 04/21/2021: Cancer of the skin, basal cell Comment: excised 04/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 No date: Cervical spondylosis without myelopathy 03/30/2023: Chronic renal failure, stage 3a ([facility]) 03/15/2021: COPD (chronic obstructive pulmonary disease) ([facility]) 09/09/2021: Diabetic eye exam ([facility]) Comment: Last done 09/09/[address] Juve Reza 06/04/2023: Dilated aortic root ([facility]) Comment: Seeing Matthew Cardio 10/06/2021: [...] 04/22/2021: Hypomagnesemia 06/13/2018: 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[facility]) Comment: --ppx ACV and cipro 12/16/2022: Increased weakness when ambulating No date: Inflammatory polyarthropathy ([facility]) 01/02/2018: Leg DVT (deep venous thromboembolism), acute, left ([facility]) Comment: --acute DVT gastrocnemius found [...] can resume at discharge 11/28/2017: Multiple myeloma ([facility]) No date: Multiple myeloma in remission ([facility]) 10/01/2012: Obesity, Class I, BMI 30-34.9 No date: Osteoarthritis of both hands 06/25/2018: Pancytopenia due to chemotherapy ([facility]) Comment: --Transfuse PRBC and platelets per protocol --GCSF 06/07/2005: Peripheral autonomic neuropathy in disorders classified elsewhere 10/23/2019: Pulmonary hypertension, unspecified ([facility]) 11/13/2006: Spinal stenosis, lumbar region, without neurogenic claudication 12/27/2011: Tobacco abuse Comment: Quit 201204/12/2018: Type 2 diabetes mellitus without complication, without long-term current use of insulin ([facility]) 01/06/2014: Venous insufficiency, peripheral 12/31/2014: Vitamin D deficiency 12/16/2022: Weakness of both lower extremities Previous Surgical History PAST SURGICAL HISTORY 01/28/2013: ANES ARTHROSCOPIC TOTAL SHOULDER REPLACEMENT; Right Comment: [facility] - complete right shoulder replaceement 2009: ARTHRD ANT INTERBODY MIN DSC LUMBAR 1981: ARTHROTOMY W/MENISCUS REPAIR KNEE Comment: RIGHT 1982: ARTHROTOMY W/MENISCUS REPAIR KNEE Comment: LEFT 2007: ARTHRP KNE CONDYLEANDPLATU MEDIALANDLAT COMPARTMENTS; Right Comment: Knee replacement, total No date: BACK SURGERY HX 09/25/2012: COLONOSCOPY FLX DX W/COLLJ SPEC WHEN PFRMD Comment: normal colonoscopy - 10 year follow up 09/25/2012: EGD TRANSORAL BIOPSY SINGLE/MULTIPLE Comment: mild distal esophagitis 2021: HAND BILATERAL OP SURGERY C (more content not included)...[facility]09-09-2024 History of Present illness Narrative* Leslye Winter PA-C - 05/27/2024 7:16 AM EDT Chief Complaint Patient presents with: Hospital F/U [facility] Ronnie Yarbrough is a 73 year old male who presents here today for Hospital Discharge Follow up.. Patient was admitted to [facility] in [place] for septic arthritis of right elbow and [...] is leaving next week for vacation in [place]. Over patient states symptoms have significantly improved. [...] myelopathy 03/30/2023: Chronic renal failure, stage 3a ([facility]) 03/15/2021: COPD (chronic obstructive pulmonary disease) ([facility]) 09/09/2021: Diabetic eye exam ([facility]) Comment: Last done 09/09/[address] Juve Reza 06/04/2023: Dilated aortic root ([facility]) Comment: Seeing [place] [facility] 10/06/2021: Discoloration and thickening of nails both feet 07/04/2022: ED (erectile dysfunction) of organic origin 06/04/2023: Enlarged LA (left atrium) Comment: Seeing [place] [facility] 06/13/2018: Essential hypertension Comment: -On lisinopril 10mg daily ( home med) -Will d/c for now given hyperkalemia . 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[facility]) Comment: --ppx ACV and cipro 12/16/2022: Increased weakness when ambulating No date: Inflammatory polyarthropathy ([facility]) 01/02/2018: Leg DVT (deep venous thromboembolism), acute, left ([facility]) Comment: --acute DVT gastrocnemius found [...] can resume at discharge 11/28/2017: Multiple myeloma ([facility]) No date: Multiple myeloma in remission ([facility]) 10/01/2012: Obesity, Class I, BMI 30-34.9 No date: Osteoarthritis of both hands 06/25/2018: Pancytopenia due to chemotherapy ([facility]) Comment: --Transfuse PRBC and platelets per protocol --GCSF 06/07/2005: Peripheral autonomic neuropathy in disorders classified elsewhere 10/23/2019: Pulmonary hypertension, unspecified ([facility]) 11/13/2006: Spinal stenosis, lumbar region, without neurogenic claudication 12/27/2011: Tobacco abuse Comment: Quit 201204/12/2018: Type 2 diabetes mellitus without complication, without long-term current use of insulin ([facility]) 01/06/2014: Venous insufficiency, peripheral 12/31/2014: Vitamin D deficiency 12/16/2022: Weakness of both lower extremities Previous Surgical History PAST SURGICAL HISTORY 01/28/2013: ANES ARTHROSCOPIC TOTAL SHOULDER REPLACEMENT; Right Comment: [facility] - complete right shoulder replaceement 2008: [...] JOINT REPLACEMENT HX; Right Comment: shoulder 08/21/2023: NVSI-XKRH-LIQEVKQXJVFH-TOTAL REPLACE/BOTH COMPART; Left 2007: HARRIS W/O FACETEC [...] two times a day with meals. Per [facility] metFORMIN (GLUCOPHAGE) 1,000 mg tablet [...] daily. Take one daily in the morning larumfpnawd-uvdawnqzq-ejefsdxq (TRELEGY ELLIPTA) 100-62.5-25 mcg inhalation powder inhale [...] which included preparing to see the patient, llpx-br-necb patient care, completing clinical documentation, obtaining and/or reviewing separately obtained history, performing a medically appropriate examination, counseling and educating the pat ient/family/caregiver, ordering medications, tests, or procedures, communicating with other HCPs (not separately reported), and communicating results to the patient/family/caregiver. documented in this encounterChildren'[facility]08-[facility]24 Telephone encounter Note * Telephone Encounter - [...] Take 1 tablet by mouth once daily. [facility]08-[facility] Miscellaneous Notes* Telephone Encounter - Marta Lui RN - 05/10/2024 11:21 AM EDT Requestor:Patient Patient is identified by name and birthdate: Yes Patient reminded to check with pharmacy in 24-48 hours: Yes Prescriber Verified: Yes Pharmacy benefits have been verified: No Pharmacy updated in [facility]: Yes Is medication controlled substance: No Medication [...] by mouth once daily. documented in this encounterChildren'S [facility]08-23-2024 NoteHNO ID: [id number] Author: MARTA LUI RN Service: ? Author Type: Registered Nurse Type: Progress Notes Filed: 05/10/2024 11:26 Note Text: [facility] Telephonic Outreach Provider Action/FYI N/A Contacted for: [...] more often than normal? No Based on chimney mechanic, the following disposition is advised: No symptoms or symptoms present, not severe. Routed to: No Action Needed MACO Education Provided this Outreach: No Upcoming appointments reviewed: Appointments for Next 60 Days Date Time Provider Location Dept Phone 05/27/2024 10:00 AM [facility] [phone] 05/29/2024 8:00 AM [facility] [phone] 05/29/2024 9:20 AM MRI [facility]IO [facility] (I-STAT/1.5T) [facility] [phone] 05/30/2024 9:20 AM OVIDIO [facility]INCENT [facility] [phone] Marta Lui RN May 10, 2024 11:25 [facility]08-23-2024 History of Present illness Narrative* Marta Lui RN - 05/10/2024 11:15 AM EDT [facility] Telephonic Outreach Provider Action/FYI N/A Contacted for: [...] more often than normal? No Based on chimney mechanic, the following disposition is advised: No symptoms or symptoms present, not severe. Routed to: No Action Needed MACO Education Provided this Outreach: No Upcoming appointments reviewed: Appointments for Next 60 Days Date Time Provider Location Dept Phone 05/27/2024 10:00 AM HAYDE WARD [facility] [phone] 05/29/2024 8:00 AM [facility] [phone] 05/29/2024 9:20 AM MRI RADIO [facility] (I-STAT/1.5T) [place] [facility] [phone] 05/30/2024 9:20 AM [facility]IO [facility]INCENT [facility] [phone] Marta Lui RN May 10, 2024 11:25 AM documented in this encounterChildren'S [facility] For [facility]08-23-2024 NotePatient Outreach ([facility]) RONNIE YARBROUGH I ([id number]) 1950 M Date Time Provider Department 05/10/24 MARTA LUI [facility] During your visit today, [...] more often than normal? No Based on chimney mechanic, the following disposition is advised: No symptoms or symptoms present, not severe. Routed to: No Action Needed MACO Education Provided this Outreach: No Upcoming appointments reviewed: Appointments for Next 60 Days Date Time Provider Location Dept Phone 05/27/2024 10:00 AM HAYDE WARD [place] [facility] [phone] 05/29/2024 8:00 AM [facility] [phone] 05/29/2024 9:20 AM MRI [facility]IO [facility] (I-STAT/1.5T) [facility] [phone] 05/30/2024 9:20 AM OV[facility]IO [facility]INCENT [facility] [phone] Marta Lui RN May 10, 2024 11:25 AM Allergies As of Date: 05/10/2024 Noted Allergy Reaction GABAPENTIN 06/24/2018 14 - Other: See Comments Comments: Depression/suicidal ideation Date Reviewed: 05/03/2024 Reviewed by: Morena Leal Ma MA - Fully Assessed Reason for Visit: [...] 1 tablet by mouth once daily. - tgzgbxbqqtu-pxoeexmln-yxgyzvlf (TRELEGY ELLIPTA) 100-62.5-25 mcg inhalation powder inhale [...] induced nausea and vomit (more content not included)...[facility]08-16-2024 NoteHNO ID: [id number] Author: MURRAY MOONEY MD Service: ? Author [...] myelopathy 03/30/2023: Chronic renal failure, stage 3a ([facility]) 03/15/2021: COPD (chronic obstructive pulmonary disease) ([facility]) 09/09/2021: Diabetic eye exam ([facility]) Comment: Last done 09/09/[address] Juve Reza 06/04/2023: Dilated aortic root ([facility]) Comment: Seeing [facility] 10/06/2021: Discoloration and thickening of nails both feet 07/04/2022: ED (erectile dysfunction) of organic origin 06/04/2023: Enlarged LA (left atrium) Comment: Seeing [place] [facility] 06/13/2018: Essential hypertension Comment: -On lisinopril 10mg daily ( home med) -Will d/c for now given hyperkalemia . 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[facility]) Comment: --ppx ACV and cipro 12/16/2022: Increased weakness when ambulating No date: Inflammatory polyarthropathy (HCC) 01/02/2018: Leg DVT (deep venous thromboembolism), acute, left ([facility]) Comment: --acute DVT gastrocnemius found [...] (HCC) No date: Multiple myeloma in remission ([facility]) 10/01/2012: Obesity, Class I, BMI 30-34.9 No date: Osteoarthritis of both hands 06/25/2018: Pancytopenia due to chemotherapy ([facility]) Comment: --Transfuse PRBC and platelets per protocol --GCSF 06/07/2005: Peripheral autonomic neuropathy in disorders classified elsewhere 10/23/2019: Pulmonary hypertension, unspecified ([facility]) 11/13/2006: Spinal stenosis, lumbar region, without neurogenic claudication 12/27/2011: Tobacco abuse Comment: Quit 201204/12/2018: Type 2 diabetes mellitus without complication, without long-term current use of insulin ([facility]) 01/06/2014: Venous insufficiency, peripheral 12/31/2014: Vitamin D deficiency 12/16/2022: Weakness of both lower extremities PAST SURGICAL HISTORY 01/28/2013: ANES ARTHROSCOPIC TOTAL SHOULDER REPLACEMENT; Right Comment: [facility] - complete right shoulder replaceement 2009: [...] HAND BILATERAL OP S (more content not included)...[facility]08-16-2024 History of Present illness Narrative* Murray Mooney [...] of deep veins of both lower extremities ([facility]) Comment: Eliquis started 02/2023, can stop 08/202309/30/2022: Advance directive discussed with patient Comment: Discussed 09/2022: up to date 03/15/2021: Allergic rhinitis 12/16/2022: At high risk for falls 06/13/2018: 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[facility]) Comment: Day: +12; Engrafted Protocol(s): 3422 1C Preparative regimen: melphalan Mobilization regimen: neupogen and plerixafor Stem cell source: apheresis CD34 cell dose (x10e6/kg): 5.14 Date of transplant: 06/15/2018 09/30/2022: Bilateral leg edema 04/21/2021: Cancer of the skin, basal cell Comment: excised 04/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 No date: Cervical spondylosis without myelopathy 03/30/2023: Chronic renal failure, stage 3a ([facility]) 03/15/2021: COPD (chronic obstructive pulmonary disease) ([facility]) 09/09/2021: Diabetic eye exam ([facility]) Comment: Last done 09/09/[address] Juve Reza 06/04/2023: Dilated aortic root ([facility]) Comment: Seeing [facility] 10/06/2021: Discoloration and thickening of nails both feet 07/04/2022: ED (erectile dysfunction) of organic origin 06/04/2023: Enlarged LA (left atrium) Comment: Seeing [place] [facility] 06/13/2018: Essential hypertension Comment: -On lisinopril 10mg daily ( home med) -Will d/c for now given hyperkalemia . 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[facility]) Comment: --ppx ACV and cipro 12/16/2022: Increased weakness when ambulating No date: Inflammatory polyarthropathy ([facility]) 01/02/2018: Leg DVT (deep venous thromboembolism), acute, left ([facility]) Comment: --acute DVT gastrocnemius found [...] can resume at discharge 11/28/2017: Multiple myeloma ([facility]) No date: Multiple myeloma in remission ([facility]) 10/01/2012: Obesity, Class I, BMI 30-34.9 No date: Osteoarthritis of both hands 06/25/2018: Pancytopenia due to chemotherapy ([facility]) Comment: --Transfuse PRBC and platelets per protocol --GCSF 06/07/2005: Peripheral autonomic neuropathy in disorders classified elsewhere 10/23/2019: Pulmonary hypertension, unspecified ([facility]) 11/13/2006: Spinal stenosis, lumbar region, without neurogenic claudication 12/27/2011: Tobacco abuse Comment: Quit 201204/12/2018: Type 2 diabetes mellitus without complication, without long-term current use of insulin ([facility]) 01/06/2014: Venous insufficiency, peripheral 12/31/2014: Vitamin D deficiency 12/16/2022: Weakness of both lower extremities PAST SURGICAL HISTORY 01/28/2013: ANES ARTHROSCOPIC TOTAL SHOULDER REPLACEMENT; Right Comment: [facility] - complete right shoulder replaceement 2009: ARTHRD ANT INTERBODY MIN DSC LUMBAR 1981: ARTHROTOMY W/MENISCUS REPAIR KNEE Comment: RIGHT 1982: ARTHROTOMY W/MENISCUS REPAIR KNEE Comment: LEFT 2008: ARTHRP KNE CONDYLE&PLATU MEDIAL&LAT COMPARTMENTS; Right Comment: Knee replacement, total No date: BACK SURGERY HX 09/25/2012: COLONOSCOPY FLX DX W/COLLJ SPEC WHEN PFRMD Comment: normal colonoscopy - 10 year follow up 09/25/2012: EGD TRANSORAL BIOPSY SINGLE/MULTIPLE Comment: mild distal esophagitis 2021: HAND BILATERAL OP SURGERY Comment: trigger finger/ cyst removal No date: JOINT REPLACEMENT HX; Right Comment: shoulder 08/21/2023: IOJC-NUAO-CVZFTOLVWADK-TOTAL REPLACE/BOTH COMPART; Left 2008: HARRIS W/O FACETEC FORAMOT/DSC 1/2 VRT SGM [...] two times a day with meals. Per [facility] metFORMIN (GLUCOPHAGE) 1,000 mg tablet [...] Take 1 tablet by mouth once daily. sldpogdnpzb-flkpdgagj-fthvluca (TRELEGY ELLIPTA) 100-62.5-25 mcg inhalation powder inhale [...] which included preparing to see the patient, ntjm-vf-hueg patient care, completing clinical documentation, obtaining and/or reviewing separately obtained history, counseling and educating the patient/family/caregiver, ordering medications, td ts, or procedures, independently interpreting results (not separately reported), and communicating results to the patient/family/caregiver. Electronically Signed: Murray Mooney MD May 03, 2024 documented in this encounterChildren'S Hospital For Rehabilitation08-09-2024 NoteHNO ID: [id number] Author: MARTA LUI RN Service: ? Author Type: Registered Nurse Type: Progress Notes Filed: 04/26/2024 14:30 Note Text: CDM Telephonic Outreach Provider Action/FYI N/A 2nd attempt Contacted for: Routine Telephonic Outreach Contact made with patient: No, left message. Marta Lui RN April 26, 2024 2:30 [facility]08-09-2024 History of Present illness Narrative* Marta Lui RN - 04/26/2024 2:28 PM EDT [facility] Telephonic Outreach Provider Action/ANJU N/A 2nd attempt Contacted for: Routine Telephonic Outreach Contact made with patient: No, left message. Marta Lui RN April 26, 2024 2:30 PM documented in this encounterChildren'S Hospital For Rehabilitation08-09-2024 NotePatient Outreach ([facility]) RONNIE YARBROUGH I ([id number]) 1950 M Date Time Provider Department 04/26/24 MARTA LUI [facility] During your visit today, we recorded the following information about you: Marta Lui RN 04/26/2024 2:30 PM Signed [facility] Telephonic Outreach Provider Action/ANJU N/A 2nd attempt [...] two times a day with meals. Per [facility] - metFORMIN (GLUCOPHAGE) 1,000 mg [...] 1 tablet by mouth once daily. - spdczjrsivi-lsqnmzdwe-fqbocltl (TRELEGY ELLIPTA) 100-62.5-25 mcg inhalation powder inhale [...] visit, subsequent [Z00*10/06/2021 Disc (more content not included)...[facility]08-08-2024 NoteHNO ID: [id number] Author: SLIME HERNANDEZ LPN Service: ? Author Type: LICENSED NURSE Type: Progress Notes Filed: 04/25/2024 08:15 Note Text: Scan on 04/25/2024 7:40 AM by ProviderJustyn PA-C: Consultation - PT/OT/SpeechPremier Health [facility]08-08-2024 History of Present illness Narrative* Slime Hernandze LPN - 04/25/2024 8:15 AM EDT Scan on 04/25/2024 7:40 AM by Justyn Clark PAAndriyC: Consultation - PT/OT/Speech documented in this encounterChildren'S Hospital For Rehabilitation08-07-2024 NoteHNO ID: [id number] Author: MARTA LUI RN Service: ? Author Type: Registered Nurse Type: Progress Notes Filed: 04/24/2024 13:53 Note Text: CDM Telephonic Outreach Provider Action/ANJU N/A Contacted for: Routine Telephonic Outreach Contact made with patient: No, left message. Marta Lui RN April 24, 2024 1:53 [facility]08-07-2024 History of Present illness Narrative* Marta Lui RN - 04/24/2024 1:46 PM EDT CDM Telephonic Outreach Provider Mahi/ANJU N/A Contacted for: Routine Telephonic Outreach Contact made with patient: No, left message. Marta Lui RN April 24, 2024 1:53 PM documented in this encounterChildren'S Hospital For Rehabilitation08-07-2024 NotePatient Outreach ([facility]) RONNIE YARBROUGH I ([id number]) 1950 M Date Time Provider Department 04/24/24 MARTA LUI AMBSHANE During your visit today, we recorded the following information about you: Marta Lui RN 04/24/2024 1:53 PM Signed CDM Telephonic Outreach Provider Mahi/ANJU [...] 1 tablet by mouth once daily. - sfmyxerufws-nbduitgcr-qvxjlivj (TRELEGY ELLIPTA) 100-62.5-25 mcg inhalation powder inhale [...] Discoloration and thickening o (more content not included)...[facility]07-30-2024 Telephone encounter Note* Telephone Encounter - Ramu Alanis MA - 04/16/2024 9:15 AM EDT Faxed Order Demo Last O/V To [facility] point. Ramu Alanis MA [facility]07-30-2024 Miscellaneous Notes* Telephone Encounter - Ramu Alanis MA - 04/16/2024 9:15 AM EDT Faxed Order Demo Last O/V To [facility]. Ramu Alanis MA documented in this encounterChildren'S Hospital For Rehabilitation07-30-2024 History of Present illness Narrative* Ovidio Vincent [...] for quite some time. Patient has seen [facility] and they decreased his Coreg [...] CM 5.7 High CM Patient see Ophthalmology [facility] last visit 09/2023 Paroxysmal atrial fibrillation (HCC) - ICD9: 427.31, ICD10: I48.0 - patient [facility]/2024 Patient sees pulmonary last visit 11/2023 Past medical history, appointments, medications, allergies reviewed. 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 Day: +12; Engrafted Protocol(s): 3422 1C Preparative regimen: melphalan Mobilization regimen: neupogen and plerixafor Stem cell source: apheresis CD34 cell dose (x10e6/kg): 5.14 Date of transplant: 06/15/2018 Bilateral leg edema 09/30/2022 Cancer of the skin, 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 Cervical spondylosis without myelopathy COPD (chronic obstructive pulmonary disease) ([facility]) 03/15/2021 Diabetic eye exam ([facility]) 09/09/2021 Last done 09/09/[address] Juve Reza Dilated aortic root ([facility]) 06/04/2023 Seeing [facility] Discoloration and thickening of nails both feet 10/06/2021 ED (erectile dysfunction) of organic origin 07/04/2022 Enlarged LA (left atrium) 06/04/2023 Seeing [facility] Essential hypertension 06/13/2018 -On lisinopril 10mg daily ( home med) -Will d/c for now given hyperkalemia . 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 --ppx ACV and cipro Inflammatory polyarthropathy ([facility]) Leg DVT (deep venous thromboembolism), acute, left ([facility]) 01/02/2018 --acute DVT gastrocnemius found [...] chemotherapy can resume at discharge Multiple myeloma ([facility]) 11/28/2017 Multiple myeloma in remission ([facility]) Obesity, Class I, BMI 30-34.9 10/01/2012 Osteoarthritis of both hands Pancytopenia due to chemotherapy ([facility]) 06/25/2018 --Transfuse PRBC and platelets per protocol --GCSF Peripheral autonomic neuropathy in disorders classified elsewhere 06/07/2005 Pulmonary hypertension, unspecified ([facility]) 10/23/2019 Spinal stenosis, lumbar region, without neurogenic claudication 11/13/2006 Tobacco abuse 12/27/2011 Quit 2013 Type 2 diabetes mellitus without complication, without long-term current use of insulin ([facility]) 04/12/2018 Venous insufficiency, peripheral 01/06/2014 Vitamin D deficiency 12/31/2014 Previous Surgical History PAST SURGICAL HISTORY Procedure Laterality Date ANES ARTHROSCOPIC TOTAL SHOULDER REPLACEMENT Right 01/28/2013 [facility] - complete right shoulder replaceement ARTHRD [...] cyst removal JOINT REPLACEMENT HX Right shoulder YQVJ-SFDT-LXSRIQSPBWQH-TOTAL REPLACE/BOTH COMPART Left 08/21/2023 [facility]ARRIS W/O FACETEC FORAMOT/DSC 1/2 VRT SGM [...] day with meals. Per [facility] torsemide (DEMADEX) 20 mg tablet [...] breath. (Patient not taking: Reported on 11/27/2023) qklwypoyndr-djtcadhmm-iftildjk (TRELEGY ELLIPTA) 100-62.5-25 mcg inhalation powder inhale [...] which included preparing to see the patient, uzxr-mz-xijh patient care, completing clinical documentation, performing a medically appropriate examination, counseling and educating the patient/family/caregiver and ordering medications, tests, or procedures. Ovidio Vincent MD documented in this encounterChildren'S Hospital For Rehabilitation07-30-2024 NoteHNO ID: [id number] Author: OVIDIO VINCENT MD Service: ? Author [...] CM 5.7 High CM Patient see Ophthalmology [facility] last visit 09/2023 Paroxysmal atrial fibrillation (HCC) - ICD9: 427.31, ICD10: I48.0 - patient see [facility] last visit 02/2024 Patient sees pulmonary last visit 11/2023 Past medical history, appointments, medications, allergies reviewed. 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 Day: +12; Engrafted Protocol(s): 3422 1C Preparative regimen: melphalan Mobilization regimen: neupogen and plerixafor Stem cell source: apheresis CD34 cell dose (x10e6/kg): 5.14 Date of transplant: 06/15/2018 Bilateral leg edema 09/30/2022 Cancer of the skin, 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 Cervical spondylosis without myelopathy COPD (chronic obstructive pulmonary disease) ([facility]) 03/15/2021 Diabetic eye exam ([facility]) 09/09/2021 Last done 09/09/[address] Juve Reza Dilated aortic root ([facility]) 06/04/2023 Seeing [facility] Discoloration and thickening of nails both [...] transfusion Hypomagnesemia 04/22/2021 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 --ppx ACV and cipro Inflammatory polyarthropathy ([facility]) Leg DVT (deep venous thromboembolism), acute, left ([facility]) 01/02/2018 --acute DVT gastrocnemius found [...] chemotherapy can resume at discharge Multiple myeloma ([facility]) 11/28/2017 Multiple myeloma in remission ([facility]) Obesity, Class I, BMI 30-34.9 10/01/2012 (more content not included)...[facility]07-29-2024 NoteHNO ID: [id number] Author: MARTA LUI RN Service: ? Author Type: Registered Nurse Type: Progress Notes Filed: 04/15/2024 09:23 Note Text: CDM Telephonic Outreach Provider Action/FYI N/A Contacted for: Routine Telephonic Outreach Contact made with patient: No, left message. Marta Lui RN April 15, 2024 9:22 [facility]07-29-2024 History of Present illness Narrative* Marta Lui RN - 04/15/2024 9:06 AM EDT CD Telephonic Outreach Provider Mahi/ANJU N/A Contacted for: Routine Telephonic Outreach Contact made with patient: No, left message. Marta Lui RN April 15, 2024 9:22 AM documented in this encounterChildren'S Hospital For Rehabilitation07-29-2024 NotePatient Outreach ([facility]) RONNIE YARBROUGH I ([id number]) 1950 M Date Time Provider Department 04/15/24 MARTA LUI [facility] During your visit today, we recorded the following information about you: Marta Lui RN 04/15/2024 9:23 AM Signed [facility] Telephonic Outreach Provider Mahi/ANJU N/A Contacted for: [...] two times a day with meals. Per [facility] - torsemide (DEMADEX) 20 mg [...] as needed for wheezing/shortness of breath. - zwozopsvivb-ytudgznlf-linijsqa (TRELEGY ELLIPTA) 100-62.5-25 mcg inhalation powder inhale [...] Medicare annual wellness visit (more content not included)...[facility]07-22-2024 Telephone encounter Note* Telephone Encounter - Ramu [...] Alanis MA April 08, 2024 12:15 PM [facility]07-22-[facility] Miscellaneous Notes* Telephone Encounter - Ramu Alanis [...] 08, 2024 12:15 PM documented in this encounterChildren'S Hospital For Rehabilitation07-08-2024 Telephone encounter Note * Telephone Encounter - [...] ON AN EMPTY STOMACH Ovidio Vincent MD [facility]07-08-2024 Miscellaneous Notes* Telephone Encounter - Ovidio Vincent [...] 25, 2024 8:57 AM documented in this encounterChildren'S Hospital For Rehabilitation07-08-2024 Telephone encounter Note * Telephone Encounter - [...] Oquendo MA March 25, 2024 8:57 AM [facility]06-28-2024 NoteHNO ID: [id number] Author: MARTA LUI RN Service: ? Author Type: Registered Nurse Type: Progress Notes Filed: 03/15/2024 14:31 Note Text: CDM Telephonic Outreach Provider Action/FYI N/A Contacted for: Routine Telephonic Outreach AND [facility] screening for food insecurity and transportation Contact [...] more often than normal? No Based on chimney mechanic, the following disposition is advised: No symptoms or symptoms present, not severe. Routed to: No Action Needed MACO Education Provided this Outreach: No Upcoming appointments reviewed: Appointments for Next 60 Days Date Time Provider Location Dept Phone 04/16/2024 8:00 AM OVIDIO VINCENT [facility] [phone] 04/26/2024 8:00 AM LAB [facility] [place] [phone] 05/03/2024 10:10 AM MURRAY MOONEY Sabi [phone] Marta Lui RN March 15, 2024 2:30 [facility]06-28-2024 History of Present illness Narrative* Marta Lui RN - 03/15/2024 2:23 PM EDT M Telephonic Outreach Provider Action/FYI N/A Contacted for: [...] more often than normal? No Based on chimney mechanic, the following disposition is advised: No symptoms or symptoms present, not severe. Routed to: No Action Needed MACO Education Provided this Outreach: No Upcoming appointments reviewed: Appointments for Next 60 Days Date Time Provider Location Dept Phone 04/16/2024 8:00 AM OVIDIO VINCENT [facility] [phone] 04/26/2024 8:00 AM LAB [facility] [place] [phone] 05/03/2024 10:10 AM KALIM[facility]RAY [phone] Marta Lui RN March 15, 2024 2:30 PM documented in this encounterChildren'S Hospital For Rehabilitation06-28-2024 NotePatient Outreach ([facility]) RONNIE YARBROUGH I ([id number]) 1950 M Date Time Provider Department 03/15/24 MARTA LUI [facility] During your visit today, we recorded the following information about you: Marta Lui RN 03/15/2024 2:31 PM Signed CDM Telephonic Outreach Provider Action/ANJU N/A Contacted for: Routine Telephonic Outreach AND [facility] screening for food insecurity and transportation Contact [...] more often than normal? No Based on chimney mechanic, the following disposition is advised: No symptoms or symptoms present, not severe. Routed to: No Action Needed MACO Education Provided this Outreach: No Upcoming appointments reviewed: Appointments for Next 60 Days Date Time Provider Location Dept Phone 04/16/2024 8:00 AM OVIDIO VINCENT [facility] [phone] 04/26/2024 8:00 AM LAB [facility] [place] [phone] 05/03/2024 10:10 AM MURRAY MOONEY [place] [phone] Marta Lui RN March 15, 2024 2:30 [...] two times a day with meals. Per [facility] - torsemide (DEMADEX) 20 mg [...] as needed for wheezing/shortness of breath. - plyxtqkckkw-kpeyljcfl-tebqxfnr (TRELEGY ELLIPTA) 100-62.5-25 mcg inhalation powder inhale [...] (HCC) [N17.9] 06/16/2018 1 (more content not included)...[facility]06-26-2024 Telephone encounter Note* Telephone Encounter - Chanelle [...] Nolan RN March 13, 2024 10:21 AM [facility]06-26[facility] Miscellaneous Notes* Telephone Encounter - Chanelle Nolan [...] 13, 2024 10:21 AM documented in this encounterChildren'S Hospital For Rehabilitation06-19-2024 Note* Addendum Note - Ovidio Vincent MD - 03/06/2024 2:28 PM EDTAddended by: OVIDIO VINCENT on: 03/06/2024 02:28 PM Modules accepted: Orders [facility]06-19-2024 Miscellaneous Notes* Addendum Note - Ovidio Vincent MD - 03/06/2024 2:28 PM EDTAddended by: OVIDIO VICNENT on: 03/06/2024 02:28 PM Modules accepted: Orders documented in this encounterChildren'S Hospital For Rehabilitation06-19-2024 NoteHNO ID: [id number] Author: SLIME HERNANDEZ LPN Service: ? Author Type: LICENSED NURSE Type: Progress Notes Filed: 03/06/2024 13:56 Note Text: Scan on 03/06/2024 9:47 AM by ProviderJustyn PA-C: Consultation - CardiologyPrem[facility]06-[facility] History of Present illness Narrative* Slime Hernandez LPN - 03/06/2024 1:56 PM EDT Scan on 03/06/2024 9:47 AM by ProviderJustyn PAAndriyC: Consultation - Cardiology documented in this encounterChildren'S Hospital For Rehabilitation05-31-2024 History of Present illness Narrative* Nataliya Shaffer RN - 02/16/2024 12:57 PM EDT [facility] Telephonic Outreach Provider Action/FYI Contacted for: Routine Telephonic Outreach Contact made with patient: Yes Patient identified by name and date of . Discussed care with patient- bad connection, could not hear patient - mostly static- will try againanother time. documented in this encounterChildren'S Hospital For Rehabilitation05-30-2024 History of Present illness Narrative* Marta Lui RN - 02/15/2024 2:36 PM EDT [facility] Telephonic Outreach Provider Action/FYI N/A Contacted for: Routine Telephonic Outreach Contact made with patient: No, left message. Marta Lui RN February 15, 2024 3:02 PM documented in this encounterChildren'S Hospital For Rehabilitation05-20-2024 History of Present illness Narrative* Angela Chau LPN - 02/05/2024 2:13 PM EDT Scan on 02/05/2024 10:45 AM by Provider, SPENCER Alejandra: Consultation - PT/OT/Speech documented in this encounterChildren'S Hospital For Rehabilitation05-02-2024 History of Present illness Narrative* Marianela Dent RN - 01/18/2024 12:48 PM EDT CDM Telephonic Outreach Provider Mahi/ANJU Heath and JASON's [...] more often than normal? No Based on chimney mechanic, the following disposition is advised: No symptoms or symptoms present, not severe. Routed to: No Action Needed MACO Education Provided this Outreach: No Marianela Dent RN January 18, 2024 1:02 PM documented in this encounterChildren'S Hospital For Rehabilitation05-01-2024 History of Present illness Narrative* Marta Lui RN - 01/17/2024 1:15 PM EDT [facility] Telephonic Outreach Provider Action/FYTrino N/A Contacted for: Routine Telephonic Outreach Contact made with patient: No, left message. Marta Lui RN January 17, 2024 1:18 PM documented in this encounterChildren'S Hospital For Rehabilitation04-30-2024 Telephone encounter Note * Telephone Encounter - Sofi Christian RN - 01/16/2024 12:00 PM EDT Chanelle calling from [facility] and requests patient's recent pre-op visit note from 01/03/24 be faxed to them at FAX: [phone]. Pt has upcoming procedure this . Faxed as requested. Sofi Christian RN [facility]04-30-2024 Miscellaneous Notes* Telephone Encounter - Sofi Christian RN - 01/16/2024 12:00 PM EDT Chanelle calling from [facility] and requests patient's recent pre-op visit note from 01/03/24 be faxed to them at FAX: [phone]. Pt has upcoming procedure this . Faxed as requested. Sofi Christian RN documented in this encounterChildren'S Hospital For Rehabilitation04-17-2024 History of Present illness Narrative* Ovidio Vincent [...] of deep veins of both lower extremities ([facility]) 02/24/2023 Eliquis started 02/2023, can stop 08/2023 Advance directive discussed with patient 09/30/2022 Discussed 09/2022: up to date Allergic rhinitis 03/15/2021 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 Day: +12; Engrafted Protocol(s): 3422 1C Preparative regimen: melphalan Mobilization regimen: neupogen and plerixafor Stem cell source: apheresis CD34 cell dose (x10e6/kg): 5.14 Date of transplant: 06/15/2018 Bilateral leg edema 09/30/2022 Cancer of the skin, 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 Cervical spondylosis without myelopathy COPD (chronic obstructive pulmonary disease) ([facility]) 03/15/2021 Diabetic eye exam ([facility]) 09/09/2021 Last done 09/09/[address] Juve Reza Dilated aortic root ([facility]) 06/04/2023 Seeing [facility] Discoloration and thickening of nails both [...] transfusion Hypomagnesemia 04/22/2021 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 --ppx ACV and cipro Inflammatory polyarthropathy ([facility]) Leg DVT (deep venous thromboembolism), acute, left ([facility]) 01/02/2018 --acute DVT gastrocnemius found [...] chemotherapy can resume at discharge Multiple myeloma ([facility]) 11/28/2017 Multiple myeloma in remission ([facility]) Obesity, Class I, BMI 30-34.9 10/01/2012 Osteoarthritis of both hands Pancytopenia due to chemotherapy ([facility]) 06/25/2018 --Transfuse PRBC and platelets per protocol --GCSF Peripheral autonomic neuropathy in disorders classified elsewhere 06/07/2005 Pulmonary hypertension, unspecified ([facility]) 10/23/2019 Spinal stenosis, lumbar region, without neurogenic claudication 11/13/2006 Tobacco abuse 12/27/2011 Quit 2013 Type 2 diabetes mellitus without complication, without long-term current use of insulin ([facility]) 04/12/2018 Venous insufficiency, peripheral 01/06/2014 Vitamin D deficiency 12/31/2014 Previous Surgical History PAST SURGICAL HISTORY Procedure Laterality Date ANES ARTHROSCOPIC TOTAL SHOULDER REPLACEMENT Right 01/28/2013 [facility] - complete right shoulder replaceement ARTHRD [...] cyst removal JOINT REPLACEMENT HX Right shoulder GFNR-WPYT-JPLIHCOHVKVA-TOTAL REPLACE/BOTH COMPART Left 08/21/2023 [facility] W/O FACETEC [...] breath. (Patient not taking: Reported on 11/27/2023) dvphtsamvec-fkjmcxvex-khsqwmqa (TRELEGY ELLIPTA) 100-62.5-25 mcg inhalation powder inhale [...] - 4.00 k/uL 0.82 (L) 0.96 (L) Garfield% % 6.1 6.9 Abs Garfield <0.87 k/uL 0.40 0.50 Eosin% % 0.2 [...] will need to be obtained from his pharmacy operations coordinator. Dr. Hayde Ward with [facility]. 2. Epiretinal [...] N18.31 - patient advised to hold the Shares[employer]ty a week prior to surgery and restart it afterwards. 5. Paroxysmal atrial fibrillation (HCC) - ICD9: 427.31, ICD10: I48.0 - in NSR F/u next routine. Ovidio Vincent MD documented in this encounterChildren'S Hospital For Rehabilitation04-10-2024 Evaluation note* Diagnosis Pre-op evaluation- Primary Preoperative examination, unspecified Type 2 diabetes mellitus with stage 3a chronic kidney disease, without long-term current use of insulin (HCC) Essential hypertension Unspecified essential hypertension documented in this encounter [facility] Miscellaneous Notes* Telephone Encounter - Chanelle Nolan [...] getlabs or anything done. documented in this encounterChildren'S [facility]04-04-[facility] History of Present illness Narrative* Marta Lui RN - 12/21/2023 10:10 AM EDT [facility] Telephonic Outreach Provider Action/FYI N/A Contacted for: [...] more often than normal? No Based on chimney mechanic, the following disposition is advised: No symptoms or symptoms present, not severe. Routed to: No Action Needed MACO Education Provided this Outreach: No Marta Lui RN December 21, 2023 10:16 AM documented in this encounterChildren'S Hospital [facility]03-11-2024 Instructions* Patient Instructions* Christine Gaming APRN.WASTEWATER DESIGN ENGINEER - 11/27/2023 8:39 AM EDT You would be due for CT Lung Screening in 07/2024. If you would like to proceed with screening CT at that time please reach out to me. PH. [phone]. CT Lung Screen Results The CT scan [...] to endocrinology. Others Lung Cancer Screening hotline: [phone] Lung Cancer Screening [phone] Billing Questions: or [email or web address] Specialist Providers: (Reny Hendricks CNP; Zena Holcomb PA-C; Jesica Griffin CNP; Mary Monroe CNP, Maria Isabel Sharma CNP; Lizzeth Wiseman CNP; Yani Gupta PA-C; Christine Gaming CNP; Alicia Mejia CNP; Jia Paniagua PA-C; America Olea CNP; Hermila Morejon WASTEWATER DESIGN ENGINEER; Chanelle Gaston CNP): [phone] documented in this encounterChildren'S Hospital For Rehabilitation03-11-2024 History of Present illness Narrative* Christine Gaming APRN.CNP - 11/27/2023 8:31 AM EDT Images from [...] Most recent CT Chest 07/2023 ordered by pharmacy operations coordinator for evaluation of lung nodules. Lung nodules [...] pre-disease performance w/o restriction. Modified Medical Research [place] Dyspnea Scale (MMRC) I only get breathless [...] without myelopathy COPD (chronic obstructive pulmonary disease) ([facility]) 03/15/2021 Diabetic eye exam ([facility]) 09/09/2021 Last done 09/09/[address] Juve Reza Dilated aortic root ([facility]) 06/04/2023 Seeing [facility] Discoloration and thickening of nails both feet 10/06/2021 ED (erectile dysfunction) of organic origin 07/04/2022 Enlarged LA (left atrium) 06/04/2023 Seeing [facility] Essential hypertension 06/13/2018 -On lisinopril 10mg daily ( home med) -Will d/c for now given hyperkalemia . 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 --ppx ACV and cipro Inflammatory polyarthropathy ([facility]) Leg DVT (deep venous thromboembolism), acute, left ([facility]) 01/02/2018 --acute DVT gastrocnemius found [...] chemotherapy can resume at discharge Multiple myeloma ([facility]) 11/28/2017 Multiple myeloma in remission ([facility]) Obesity, Class I, BMI 30-34.9 10/01/2012 Osteoarthritis of both hands Pancytopenia due to chemotherapy ([facility]) 06/25/2018 --Transfuse PRBC and platelets per protocol --GCSF Peripheral autonomic neuropathy in disorders classified elsewhere 06/07/2005 Pulmonary hypertension, unspecified ([facility]) 10/23/2019 Spinal stenosis, lumbar region, without neurogenic claudication 11/13/2006 Tobacco abuse 12/27/2011 Quit 2013 Type 2 diabetes mellitus without complication, without long-term current use of insulin ([facility]) 04/12/2018 Venous insufficiency, peripheral 01/06/2014 Vitamin D deficiency 12/31/2014 PAST SURGICAL HISTORY Procedure Laterality Date ANES ARTHROSCOPIC TOTAL SHOULDER REPLACEMENT Right 01/28/2013 [facility] - complete right shoulder replaceement ARTHRD [...] cyst removal JOINT REPLACEMENT HX Right shoulder SXCS-LYIG-LUITIFQSTOGZ-TOTAL REPLACE/BOTH COMPART Left 08/21/2023 HARRIS W/O FACETEC [...] times a day. Per [facility] skwfwqhoyfl-izpvaqweg-gfymqyki (TRELEGY ELLIPTA) 100-62.5-25 mcg inhalation powder inhale [...] 12/27/2021 COVID-19 vaccine, age 12+ yr, bivalent (PFIZER-BIONTECH) 07/04/2022 Haemophilus influenzae b (Hib PRP-OMP) vaccine, [...] DATE OF EXAM: Jul 31 2023 10:47AM [facility] 0541 - CT CHEST WO IVCON [...] No abnormality in the imaged upper abdomen. Patient Relations Coordinator (topogram) images: No additional findings. Impression: IMPRESSION: 1. Stable subcentimeter pulmonary nodules. No new suspicious pulmonary nodules 2. No thoracic lymphadenopathy 3. Again noted are multiple lytic lesions consistent with patient's history of multiple myeloma. Remote compression fractures of the vertebral bodies of T6 and T12. Multiple remote rib fractures. Ems Driver: PSCB Transcribe Date/Time: Aug 01 2023 2:27P [...] cartilage.... Pulmonary Function Testing: SPIROMETRY BASELINE ONLY ([id number]) - ordered on 08/08/22 No textual results for order. PHYSICAL EXAM: BP 108/64 (BP Site: Right Arm) Pulse (!) 51 Temp 36.7 C (98.1 F) Ht 175.3 cm (5' 9) Wt 100.9 kg (222 lb 6.4 oz) SpO2 97% BMI 32.84 kg/m Deferred ASSESSMENT and RECOMMENDATIONS: 1. Screening for lung cancer: Six year risk for lung cancer: 5.19% [email or web address] I have determined that the patient [...] 27, 2023 8:34 AM documented in this encounterChildren'S [facility]03-07-[facility] History of Present illness Narrative* Marta Lui RN - 11/23/2023 9:56 AM EST [facility] Telephonic Outreach Provider Action/FYI N/A Contacted for: [...] more often than normal? No Based on chimney mechanic, the following disposition is advised: No symptoms or symptoms present, not severe. Routed to: No Action Needed MACO Education Provided this Outreach: No [place]on 3/4/24 started experiencing nasal stuffiness, coughing, runny nose- [...] Dept Phone 11/27/2023 8:00 AM CHRISTINE GAMING [phone] Marta Lui RN November 23, 2023 10:06 AM documented in this encounterChildren'S [facility]02-19-2024 Miscellaneous Notes* Telephone Encounter - Amy Monte - 11/06/2023 9:00 AM EST Patient has been scheduled for the below requested follow-up and a message was sent to him via [employer] with this appointment information Amy Barnes * Telephone Encounter - Dinorah Fernandez LPN - 11/06/2023 8:38 AM EST left VM that labs were normal. Will need 6 month OV and labs. Please set up with pt. Dinorah Fernandez LPN * Telephone Encounter - Dinorah Fernandez LPN - 11/06/2023 8:37 AM EST Images from the original note were not included. documented in this encounterChildren'S [facility]02-14-[facility]24 History of Present illness Narrative* Loretta Leon [...] has completed his Eliquis. He follows with [facility]. No lower extremity edema. 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 Day: +12; Engrafted Protocol(s): 3422 1C Preparative regimen: melphalan Mobilization regimen: neupogen and plerixafor Stem cell source: apheresis CD34 cell dose (x10e6/kg): 5.14 Date of transplant: 06/15/2018 Bilateral leg edema 09/30/2022 Cancer of the skin, 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 Cervical spondylosis without myelopathy COPD (chronic obstructive pulmonary disease) ([facility]) 03/15/2021 Diabetic eye exam ([facility]) 09/09/2021 Last done 09/09/[address] Juve Reza Dilated aortic root ([facility]) 06/04/2023 Seeing [facility] Discoloration and thickening of nails both [...] transfusion Hypomagnesemia 04/22/2021 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[facility]) ([facility]) 06/13/2018 --ppx ACV and cipro Inflammatory polyarthropathy ([facility]) Leg DVT (deep venous thromboembolism), acute, left ([facility]) 01/02/2018 --acute DVT gastrocnemius found [...] chemotherapy can resume at discharge Multiple myeloma ([facility]) 11/28/2017 Multiple myeloma in remission ([facility]) Obesity, Class I, BMI 30-34.9 10/01/2012 Osteoarthritis of both hands Pancytopenia due to chemotherapy ([facility]) 06/25/2018 --Transfuse PRBC and platelets per protocol --GCSF Peripheral autonomic neuropathy in disorders classified elsewhere 06/07/2005 Pulmonary hypertension, unspecified ([facility]) 10/23/2019 Spinal stenosis, lumbar region, without neurogenic claudication 11/13/2006 Tobacco abuse 12/27/2011 Quit 2012 Type 2 diabetes mellitus without complication, without long-term current use of insulin ([facility]) 04/12/2018 Venous insufficiency, peripheral 01/06/2014 [...] hours as needed for wheezing/shortness of breath. jqpbydjemvf-oqsmqvisp-xenqhkuh (TRELEGY ELLIPTA) 100-62.5-25 mcg inhalation powder inhale [...] ANES ARTHROSCOPIC TOTAL SHOULDER REPLACEMENT Right 01/28/2013 [facility] - complete right shoulder replaceement ARTHRD [...] cyst removal JOINT REPLACEMENT HX Right shoulder ZDEU-HIAB-AHADXKTQMHQV-TOTAL REPLACE/BOTH COMPART Left 08/21/2023 HARRIS W/O FACETEC [...] No abnormality in the imaged upper abdomen. Patient Relations Coordinator (topogram) images: No additional findings. ASSESSMENT/PLAN: 1. COPD with chronic bronchitis - ICD9: 491.20, ICD10: J44.89 (primary diagnosis) Continue Trelegy ellipta with as needed Albuterol. Up to date on annual influenza, pneumococcal and Covid 19 vaccines. 2. Former cigarette smoker - ICD9: V15.82, ICD10: Z87.891 Former 57-juqn-zcbh smoker having quit in 2011 with sequelae of COPD. Previously enrolled in lung cancer screening at [facility]. Would like to follow with [facility]. [...] eliquis for DVT. Instructed him to call [facility] to follow up and notify them that he has discontinued his Eliquis. Portions of this documentation were copied and pasted from previous office visit notes in order to provide a cohesive continuity of the history. The note has been reviewed and edited and updated as necessary. Loretta Leon PA-C documented in this encounterChildren'S [facility]02-[facility]24 Miscellaneous Notes* Telephone Encounter - Slime Hernandez LPN - 10/27/2023 12:13 PM EST Pt advised of medication instructions. Pt verbalizes understanding. Slime Hernandez LPN * Telephone Encounter - Leslye Winter PA-C - 10/27/2023 11:24 AM EST Will have him increase to 500mg in morning and 250mg in evenings. Thanks. Leslye Winter PA-C * Telephone Encounter - Conrad Dickens RN - 10/27/2023 9:55 AM EST Pt [...] taking. Leslye Winter PA-C documented in this encounterChildren'S [facility]01-26-2024 Discharge summary Author Daniel Gupta [facility] October 13, 2023 7:20am Note Date/Time October 13, 2023 7 :20am [facility] Physical Therapy [facility] [address] [place] [address] [address] [place] [address] / REHABILITATION SERVICES DISCHARGE SUMMARY MR#: [id number] Acct: [id number] Name: RONNIE YARBROUGH Rep #: [id number] : 1950 73 From: Daniel Gupta DPT, OCS, CSCS Referring DrAniceto: KENDY BURROUGHS Status: REG RCR Insurance: [employer] [facility] SELF PAY INSURANCE Discharge Summary D/C summary: It has been my pleasure to treat RONNIE YARBROUGH referred by LEO ARCE, with the diagnosis of L TKA 08/22/23 for a total of 18 visit(s). Discharge Date: 10/13/23 Please see the following information for a summary of their discharge status. Subjective Subjective: Gym going well. No f/u with doctor. Pain level 2/10 transient withsteps. Sleeping is going well. Will continue gym exercises I. activities at home are normal outside of cutting [employer]. Pain L knee: Pain Intensity (Out of [...] Goal 5:: [facility] Goal Progress: Goal Met Plan Plan: d/c to [facility] dn home ex. D/C Information d/c sentence: If there are questions or concerns regarding this patient's physical therapy, please feel free to call me at [phone]. Thank you for the referral of thispatient. Sincerely, Daniel Gupta, SOMMER, OCS, CSCS Balance/Gait/Functional tests Balance/Special Test Scores WOMAC Total Score: 20 WOMAC Percentage: 79.1700 Improvement % Improvement: 85 <Electronically signed by Daniel Gupta DPT, OCS, CSCS> 10/13/23 0720 CC: Dr. Ovidio Vincent MD; KENDY BURROUGHS ~ EBG Signed [facility] Work Phone: [phone] History of Present illness Narrative* Slime Hernandez LPN - 09/15/2023 8:59 AM EST Scan on 09/14/2023 6:03 PM by Provider, SPENCER Alejandra: Consultation - Ophthalmology documented in this encounterChildren[facility] History of Present illness Narrative* Slime Hernandez LPN - 08/18/2023 8:11 AM EST Scan on 08/17/2023 4:03 PM by Provider, External, SPENCER: Consultation - Cardiology documented in this encounterChildren'[facility]11-16-2023 Miscellaneous Notes* Telephone Encounter - Adrianne Hercules Cma - 08/03/2023 10:09 AM EST Pt notified and verbalized understanding Adrianne Hercules Cma * Telephone Encounter - Rebecca Jansen APRN.CNP - 08/03/2023 9:46 AM EST Please let patient know their labs are normal. documented in this encounterChildren'S [facility]11-14-2023 History of Present illness Narrative* Rebecca Jansen APRN.CNP - 08/01/2023 10:39 AM EST Chief Complaint No chief complaint on file. HPI Ronnie Yarbrough is a 73 year old male who presents here today for Above Complaints.. Patient presents for pre-op clearance for knee replacement. Patient having procedure completed withDr. Ahumada at [facility]. Past medical history, appointments, medications, allergies [...] without myelopathy COPD (chronic obstructive pulmonary disease) ([facility]) 03/15/2021 Diabetic eye exam ([facility]) 09/09/2021 Last done 09/09/[address] Juve Reza Dilated aortic root ([facility]) 06/04/2023 Seeing [facility] Discoloration and thickening of nails both feet 10/06/2021 ED (erectile dysfunction) of organic origin 07/04/2022 Enlarged LA (left atrium) 06/04/2023 Seeing [facility] Essential hypertension 06/13/2018 -On lisinopril 10mg daily ( home med) -Will d/c for now given hyperkalemia . 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 --ppx ACV and cipro Inflammatory polyarthropathy ([facility]) Leg DVT (deep venous thromboembolism), acute, left ([facility]) 01/02/2018 --acute DVT gastrocnemius found [...] chemotherapy can resume at discharge Multiple myeloma ([facility]) 11/28/2017 Multiple myeloma in remission ([facility]) Obesity, Class I, BMI 30-34.9 10/01/2012 Osteoarthritis of both hands Pancytopenia due to chemotherapy ([facility]) 06/25/2018 --Transfuse PRBC and platelets per protocol --GCSF Peripheral autonomic neuropathy in disorders classified elsewhere 06/07/2005 Pulmonary hypertension, unspecified ([facility]) 10/23/2019 Spinal stenosis, lumbar region, without neurogenic claudication 11/13/2006 Tobacco abuse 12/27/2011 Quit 2013 Type 2 diabetes mellitus without complication, without long-term current use of insulin ([facility]) 04/12/2018 Venous insufficiency, peripheral 01/06/2014 Vitamin D deficiency 12/31/2014 Previous Surgical History PAST SURGICAL HISTORY Procedure Laterality Date ANES ARTHROSCOPIC TOTAL SHOULDER REPLACEMENT Right 01/28/2013 [facility] - complete right shoulder replaceement ARTHRD [...] HX Right shoulder HARRIS W/O FACETEC FORAMOT/DSC 1/ VRT SGM CRV 2007 Laminectomy, cervical PAST [...] (FLONASE) 50 mcg/actuation nasal spray Use 1 [place] in each nostril twice daily. Rinse mouth after use. carvedilol (COREG) 6.25 mg tablet Take 1 tablet by mouth twice daily. bhsixhakfnn-jcjgdwwre-ljlwtfhy (TRELEGY ELLIPTA) 100-62.5-25 mcg inhalation powder inhale [...] with cardiology fro cardiac clearance. Rebecca Jansen APRN.WASTEWATER DESIGN ENGINEER documented in this encounterChildren'S [facility]11-13-2023 History of Present illness Narrative* Lizzeth Lindsay [...] 31, 2023 11:05 AM documented in this encounterChildren'S Hospital For [facility]11-08-2023 Miscellaneous Notes* Telephone Encounter - Marta Lui RN - 07/26/2023 3:29 PM EST Requestor:Patient Patient is identified by name and birthdate: Yes Patient reminded to check with pharmacy in 24-48 hours: Yes Prescriber Verified: Yes Pharmacy benefits have been verified: No Pharmacy updated in [facility]: Yes Is medication controlled substance: No Medication [...] Patient is requesting a refill today during PCC outreach for [employer] Monitoring. Thank you. Requested Prescriptions Pending Prescriptions Disp Refills Magnesium Chloride (SLOW-MAG) 71.5 mg TbEC 120 tablet 3 Sig: Take 2 tablets by mouth two times a day. documented in this encounterChildren'S [facility]11-08-2023 History of Present illness Narrative* Marta Lui RN - 07/26/2023 3:19 PM EST [facility] Telephonic Outreach Provider Action/FYI N/A Contacted for: [...] more often than normal? No Based on chimney mechanic, the following disposition is advised: No symptoms or symptoms present, not severe. Routed to: No Action Needed MACO Education Provided this Outreach: No Needs refill of Slow-Mag 71.5 TbEC 2 tabs twice daily sent to [facility]. Will pend to prescriber in separate refill encounter. Marta Lui RN July 26, 2023 3:23 PM documented in this encounterChildren'S [facility]11-07-2023 History of Present illness Narrative* Marta Lui RN - 07/25/2023 1:17 PM EST [facility] Telephonic Outreach Provider Action/FYI N/A Contacted for: Routine Telephonic Outreach Contact made with patient: No, left message. Marta Lui RN July 25, 2023 1:21 PM documented in this encounterChildren'S [facility]11-02-2023 Miscellaneous Notes* Telephone Encounter - Ramu Alanis MA - 07/20/2023 8:09 AM EDT Mailed letters to patient. Ramu Alanis MA * Telephone Encounter - Ovidio Vincent MD - 07/19/2023 5:50 PM EDT Both letters ready for patient. documented in this encounterChildren'S [facility]10-25-2023 History of Present illness Narrative* Loretta Leon [...] 2023, however, patient cancelled it secondary to vwa-zj-uksbdo expense. Current therapy consists of Trelegy. 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 --ppx ACV and cipro Inflammatory polyarthropathy ([facility]) Leg DVT (deep venous thromboembolism), acute, left ([facility]) 01/02/2018 --acute DVT gastrocnemius found [...] chemotherapy can resume at discharge Multiple myeloma ([facility]) 11/28/2017 Multiple myeloma in remission ([facility]) Obesity, Class I, BMI 30-34.9 10/01/2012 Osteoarthritis of both hands Pancytopenia due to chemotherapy ([facility]) 06/25/2018 --Transfuse PRBC and platelets per protocol --GCSF Peripheral autonomic neuropathy in disorders classified elsewhere 06/07/2005 Pulmonary hypertension, unspecified ([facility]) 10/23/2019 Spinal stenosis, lumbar region, without neurogenic claudication 11/13/2006 Tobacco abuse 12/27/2011 Quit 2012 Type 2 diabetes mellitus without complication, without long-term current use of insulin ([facility]) 04/12/2018 Venous insufficiency, peripheral 01/06/2014 Vitamin D deficiency 12/31/2014 Allergies: Gabapentin Other: See Comments Comment:Depression/suicidal ideation torsemide (DEMADEX) 20 mg tablet Take 1 tablet by mouth twice daily. . fluticasone (FLONASE) 50 mcg/actuation nasal spray Use 1 [place] in each nostril twice daily. Rinse mouth after use. cefADROxil (DURICEF) 500 mg capsule Take 1 capsule by mouth twice daily. carvedilol (COREG) 6.25 mg tablet Take 1 tablet by mouth twice daily. jxjkdragzhf-egcylnluc-itgurgwh (TRELEGY ELLIPTA) 100-62.5-25 mcg inhalation powder inhale [...] ANES ARTHROSCOPIC TOTAL SHOULDER REPLACEMENT Right 01/28/2013 [facility] - complete right shoulder replaceement ARTHRD [...] by Hayde Ward M.D. LDCT chest, 08/2022 [facility] ASSESSMENT/PLAN: 1. COPD with chronic bronchitis [...] ICD9: 793.19, ICD10: R91.8 Last LDCT at [facility] in August 2022 Lung-RADS category 3. Patient was scheduled for a follow up CT chest in February 2023. However, he cancelled it secondary to the amount of zic-vu-vzvdmh expense. I am going to obtain a HRCT now. - CT CHEST WO IVCON 3. Need for influenza vaccination - ICD9: V04.81, ICD10: Z23 - INFLUENZA VACCINE, PRSV FREE, AGE 65+ YR, HIGH DOSE, QUADRIVALENT (FLUZONE HIGH-DOSE) 4. Former cigarette smoker - ICD9: V15.82, ICD10: Z87.891 Former 54-plti-idoc smoker having quit in 2012 with sequelae of COPD. See #2. Portions of this documentation were copied and pasted from previous office visit notes in order to provide a cohesive continuity of the history. The note has been reviewed and edited and updated as necessary. Loretta Leon PA-C documented in this encounterChildren'S Hospital For [facility]10-10-2023 History of Present illness Narrative* Marta Lui RN - 06/27/2023 11:04 AM EDT [facility] Telephonic Outreach Provider Action/ANJU N/A Contacted for: Routine Telephonic Outreach Contact made with patient: No, left message. Marta Lui RN June 27, 2023 11:08 AM documented in this encounterChildren'S Hospital For Rehabilitation10-06-2023 Miscellaneous Notes* Telephone Encounter - Ramu Alanis MA - 06/23/2023 3:10 PM EDT Faxed. Ramu Alanis MA * Telephone Encounter - Ovidio Vincent MD - 06/23/2023 2:15 PM EDT form completed and ready to be returned. * Telephone Encounter - Slime Hernandez LPN - 06/23/2023 10:20 AM EDT Received fax from [facility] wanting to see if pt can stop Eliquis before procedure. Form on pcp's desk. Slime Hernandez LPN documented in this encounterChildren'S Hospital For Rehabilitation09-25-2023 Instructions* Patient Instructions* Ovidio Vincent MD - 06/12/2023 1:34 PM EDT Also product picker Claritin 10 mg and take one a day for the next three weeks. If you start to notice issues with starting your urination stop it. 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 --ppx ACV and cipro Inflammatory polyarthropathy ([facility]) Leg DVT (deep venous thromboembolism), acute, left ([facility]) 01/02/2018 --acute DVT gastrocnemius found [...] chemotherapy can resume at discharge Multiple myeloma ([facility]) 11/28/2017 Multiple myeloma in remission ([facility]) Obesity, Class I, BMI 30-34.9 10/01/2012 Osteoarthritis of both hands Pancytopenia due to chemotherapy ([facility]) 06/25/2018 --Transfuse PRBC and platelets per protocol --GCSF Peripheral autonomic neuropathy in disorders classified elsewhere 06/07/2005 Pulmonary hypertension, unspecified ([facility]) 10/23/2019 Spinal stenosis, lumbar region, without neurogenic claudication 11/13/2006 Tobacco abuse 12/27/2011 Quit 2013 Type 2 diabetes mellitus without complication, without long-term current use of insulin (HCC) 04/12/2018 Venous insufficiency, peripheral 01/06/2014 Vitamin D deficiency 12/31/2014 Previous Surgical History PAST SURGICAL HISTORY Procedure Laterality Date ANES ARTHROSCOPIC TOTAL SHOULDER REPLACEMENT Right 01/28/2013 [facility] - complete right shoulder replaceement ARTHRD [...] Take 1 tablet by mouth twice daily. ryerqbznhjn-lkqaryhjo-lvdkpgze (TRELEGY ELLIPTA) 100-62.5-25 mcg inhalation powder inhale [...] Claritin Since he will be gone in [place] for 3 weeks he was given a script for Duricef 500 mg twice a day to start if ear pain starts to increase. Requested Prescriptions Signed Prescriptions Disp Refills fluticasone (FLONASE) 50 mcg/actuation nasal spray 1 Each 1 Sig: Use 1 [place] in each nostril twice daily. Rinse mouth after use. cefADROxil (DURICEF) 500 mg capsule 20 capsule 0 Sig: Take 1 capsule by mouth twice daily. Ovidio Vincent MD documented in this encounterChildren'S Hospital For Rehabilitation09-18-2023 Miscellaneous Notes* Telephone Encounter - Ovidio Vincent [...] Coreg does was increased to 6.25 by brandon Cariology back in April. Since my records show he was on 3.125 mg twice a day by use and [facility] is saying he filled a script in [place] under Dr. Gamble with the [place] [facility] on 05/02/2023 for the 6.25 [...] pt is supposed to be on. Call [phone]. Ref# [id number] Arlet Clemens LPN documented in this encounterChildren'S Hospital For Rehabilitation09-15-2023 History of Present illness Narrative* Slime Hernandez LPN - 06/02/2023 10:07 AM EDT Scan on 06/01/2023 3:57 PM by Provider, Justyn PAAndriyC: Echo documented in this encounterChildren'S Hospital For Rehabilitation09-11-2023 Miscellaneous Notes* Telephone Encounter - Ovidio Vincent MD - 05/29/2023 12:22 PM EDT The following approved medication requests have been transmitted electronically. Requested Prescriptions Signed Prescriptions Disp Refills carvedilol (COREG) 3.125 mg tablet 180 tablet 1 Sig: Take 1 tablet by mouth twice daily. Ovidio Vincent MD documented in this [facility]09-08-2023 History of Present illness Narrative* Hayde Mejia Ma - 05/26/2023 8:28 AM EDT Scan on 05/25/2023 4:58 PM by Provider, Justyn PAAndriyC: Consultation - PT/OT/Speech documented in this encounterChildren'S Hospital For Rehabilitation09-07-2023 Discharge summary Author Deysi Bass [facility] May 25, 2023 12:34pm Note Date/Time May 25, 2023 12:35pm [facility] Physical Therapy [facility] [address] [place] [address] / REHABILITATION SERVICES DISCHARGE SUMMARY MR#: [id number] Acct: [id number] Name: RONNIE YARBROUGH Rep #: [id number] : 1950 72 From: Deysi Bass PT, Cert. MDT Referring Dr.: Dr. Ovidio Vincent MD Status: REG RCR [facility] Patient Information Patient Information: [...] ON SLANT BOARD. WE STARTED WALKING TO [facility] ROOM AND PATIENT HAD NEAR FALL WHEN [...] Seconds: 10 <Electronically signed by Deysi Bass PT Cert. MDT> 05/25/23 1234 CC: Dr. Ovidio Vincent MD; Dr. Shabbir Davila MD ~ SHEEBA Signed [facility] Work Phone: [phone]) 321-856909-07-2023 History of Present illness Narrative* Marni Gonzalez PA-C - 05/25/2023 12:26 PM EDT This note was created using Inkomerceriter. 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 Day: +12; Engrafted Protocol(s): 3422 1C Preparative regimen: melphalan Mobilization regimen: neupogen and plerixafor Stem cell source: apheresis CD34 cell dose (x10e6/kg): 5.14 Date of transplant: 06/15/2018 Bilateral leg edema 09/30/2022 Cancer of the skin, 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 Cervical spondylosis without myelopathy COPD (chronic obstructive pulmonary disease) ([facility]) 03/15/2021 Diabetic eye exam ([facility]) 09/09/2021 Last done 09/09/21 No [...] transfusion Hypomagnesemia 04/22/2021 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 --ppx ACV and cipro Inflammatory polyarthropathy ([facility]) Leg DVT (deep venous thromboembolism), acute, left ([facility]) 01/02/2018 --acute DVT gastrocnemius found [...] chemotherapy can resume at discharge Multiple myeloma ([facility]) 11/28/2017 Multiple myeloma in remission ([facility]) Obesity, Class I, BMI 30-34.9 10/01/2012 Osteoarthritis of both hands Pancytopenia due to chemotherapy ([facility]) 06/25/2018 --Transfuse PRBC and platelets per protocol --GCSF Peripheral autonomic neuropathy in disorders classified elsewhere 06/07/2005 Pulmonary hypertension, unspecified ([facility]) 10/23/2019 Spinal stenosis, lumbar region, without neurogenic claudication 11/13/2006 Tobacco abuse 12/27/2011 Quit 2012 Type 2 diabetes mellitus without complication, without long-term current use of insulin ([facility]) 04/12/2018 Venous insufficiency, peripheral 01/06/2014 Vitamin D deficiency 12/31/2014 Current Outpatient Medications Medication Sig Dispense Refill itonnboyopc-lynsefsak-vauxltyw (TRELEGY ELLIPTA) 100-62.5-25 mcg inhalation powder inhale [...] ANES ARTHROSCOPIC TOTAL SHOULDER REPLACEMENT Right 01/28/2013 [facility] - complete right shoulder replaceement ARTHRD [...] RSV Marni Gonzalez PA-C documented in this encounterChildren'S Hospital For Rehabilitation09-01-2023 Miscellaneous Notes* Telephone Encounter - Mellisa Herrera Ma - 05/19/2023 3:12 PM EDT Patient has been identified by name and date of : Yes Requested Prescriptions Pending Prescriptions Disp Refills xeclmrwvwnn-dbdusavrp-mfjrwzxy (TRELEGY ELLIPTA) 100-62.5-25 mcg inhalation powder 1 Each 11 RX INSTRUCTIONS: Patient aware RX will be sent to pharmacy. No need to notify patient. Will need 90 days supply. Confirmed [facility]. Mellisa Herrera Ma documented in this encounterChildren'S Hospital For Rehabilitation09-01-2023 Miscellaneous Notes* Telephone Encounter - Shey Liu LPN - 05/19/2023 8:43 AM EDT Pt to call and advise if he wants his Torsemide 20 mg tablet, Cialis tabs to come from [facility]. They also requested for pt Celebrex and records show pt is not longer on this. Received a call from [facility] but pt has been getting from local pharmacy. Need pt's approval and check to see if taking (1) tablet twice a day. If okay to send to send to [facility] will need to be a 90 day supply. [facility] will notify pt to call the office. Shey Liu LPN documented in this encounterChildren'S Hospital For Rehabilitation08-31-2023 History of Present illness Narrative* Yareli Soriano, RN - 05/18/2023 10:18 AM EDT [facility] Telephonic Outreach Provider Action/FYI Contacted for: Routine [...] more often than normal? No Based on chimney mechanic, the following disposition is advised: No symptoms or symptoms present, not severe. Routed to: No Action Needed MACO Education Provided this Outreach: Leslie Soriano RN May 18, 2023 10:19 AM documented in this encounterChildren'S Hospital For Rehabilitation08-15-2023 Miscellaneous Notes* Telephone Encounter - Hayde Mejia Ma - 05/02/2023 1:18 PM EDT Fax went through delivered, placed signed order into scanning Hayde Ahneryn Blanton * Telephone Encounter - Ramu Alanis MA - 05/01/2023 5:07 PM EDT Faxed to [facility] [place] [facility]. Ramu Alanis MA * Telephone Encounter - Ovidio Vincent MD - 05/01/2023 2:03 PM EDT [...] 05/01/2023 10:16 AM EDT Received fax from [place] [facility] requesting order to stop Eliquis for 2 days prior to pt's procedure. Form on Dr Vincent's desk for review. Fax back to [phone]. Slime Hernandez LPN documented in this encounterChildren'S Hospital For Rehabilitation08-15-2023 History of Present illness Narrative* Slime Hernandez LPN - 05/02/2023 11:11 AM EDT Scan on 05/02/2023 10:18 AM by Provider, SPENCER Alejandra: Consultation - Cardiology documented in this encounterChildren'S Hospital For Rehabilitation08-14-2023 Miscellaneous Notes* Telephone Encounter - Sangita Martinez LPN - 05/01/2023 8:46 AM EDT MCKENNA: 03/20/23 Patient phones requesting refills as follows: Requested Prescriptions Pending Prescriptions Disp Refills TRELEGY ELLIPTA 100-62.5-25 mcg inhalation powder [Pharmacy Med Name: TRELEGY ELLIPTA 100-62.5-25] Sig: inhale 1 puff by mouth and INTO THE LUNGS once daily Please review and advise. aSngita Martinez LPN documented in this encounterChildren'S Hospital For Rehabilitation08-02-2023 History of Present illness Narrative* Marta Lui RN - 04/19/2023 11:34 AM EDT [facility] Telephonic Outreach Provider Action/FYI Experiencing some dizziness upon standing at times since starting carvedilol 3.125 mg BID-ordered 04/05/23. No falls. Using rollator walker. Does swaging machine operator place for a few seconds before ambulating [...] more often than normal? No Based on chimney mechanic, the following disposition is advised: No symptoms or symptoms present, not severe. Routed to: No Action Needed MACO Education Provided this Outreach: No-declines Marta Lui RN April 19, 2023 11:48 AM documented in this encounterChildren'S Hospital For Rehabilitation07-27-2023 Miscellaneous Notes* Telephone Encounter - Adonis Mcgovern Ma - 04/13/2023 11:27 AM EDT Spoke with patient and he has monitor from [facility]. We called [facility] and they will talk him through the procedure to remove it. Adonis Mcgovern Ma documented in this encounterChildren'S Hospital For Rehabilitation07-20-2023 Miscellaneous Notes* Telephone Encounter - Ramu Alanis MA - 04/06/2023 1:52 PM EDT Sent my chart message on 04/05/2023=. Did contact patient to verify he received the message. Instructed patient to watch his BP. Check 1-2 times a day notify of any high or low BP's [place] [facility] did contact patient and he [...] MA - 04/05/2023 3:33 PM EDT Received primary clinician results. Given to PCP for review. Ramu Alanis MA documented in this encounterChildren'S Hospital For Rehabilitation07-17-2023 History of Present illness Narrative* Marta Lui RN - 04/03/2023 1:28 PM EDT Care Coordination Deferred Outreach Provider Action / FYI: OV with PCP 03/30/23. PCC outreach deferred 2 weeks. Deferred outreach to patient at this time due to: Visit with provider today-OV with PCP 03/30/23 Next Outreach date: 04/13/23 Marta Lui RN April 03, 2023 1:31 PM documented in this encounterChildren'S Hospital For Rehabilitation07-16-2023 Miscellaneous Notes* Telephone Encounter - Heath Junior DO - 04/02/2023 10:19 AM EDT The following approved medication requests have been transmitted electronically. Requested Prescriptions Signed Prescriptions Disp Refills Magnesium Chloride (SLOW-MAG) 71.5 mg TbEC 120 tablet 3 Sig: Take 2 tablets by mouth twice daily. Authorizing Provider: HEATH JUNIOR DO * Telephone Encounter - Heath Junior DO - 04/02/2023 10:[address] [facility] Refills have been requested for the following medications: SLOW-MAG 71.5 mg TbEC [Dr. Anand Alvarez] Preferred pharmacy: [id number] [place] [phone] - [address] [facility] [phone] [id number] Delivery method: Pickup Medication renewals requested in this message routed separately: Tadalafil (CIALIS) 20 mg tab(s) [Dr. Chiki Vincent] documented in this encounterChildren'S Hospital For Rehabilitation07-15-2023 Miscellaneous Notes* Telephone Encounter - Ovidio Vincent [...] 10/10/23 Slime Hernandez LPN documented in this encounterChildren'S Hospital For Rehabilitation07-14-2023 Miscellaneous Notes* Telephone Encounter - Leslye Winter [...] Thanks. 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 Cervical spondylosis without myelopathy COPD (chronic obstructive pulmonary disease) (HCC) 03/15/2021 Diabetic eye exam ([facility]) 09/09/2021 Last done 09/09/21 No [...] transfusion Hypomagnesemia 04/22/2021 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 --ppx ACV and cipro Inflammatory polyarthropathy ([facility]) Leg DVT (deep venous thromboembolism), acute, left ([facility]) 01/02/2018 --acute DVT gastrocnemius found [...] chemotherapy can resume at discharge Multiple myeloma ([facility]) 11/28/2017 Multiple myeloma in remission ([facility]) Obesity, Class I, BMI 30-34.9 10/01/2012 Osteoarthritis of both hands Pancytopenia due to chemotherapy ([facility]) 06/25/2018 --Transfuse PRBC and platelets per protocol --GCSF Peripheral autonomic neuropathy in disorders classified elsewhere 06/07/2005 Pulmonary hypertension, unspecified ([facility]) 10/23/2019 Spinal stenosis, lumbar region, without neurogenic claudication 11/13/2006 Tobacco abuse 12/27/2011 Quit 2013 Type 2 diabetes mellitus without complication, without long-term current use of insulin ([facility]) 04/12/2018 Venous insufficiency, peripheral 01/06/2014 Vitamin D deficiency 12/31/2014 Previous Surgical History PAST SURGICAL HISTORY Procedure Laterality Date ANES ARTHROSCOPIC TOTAL SHOULDER REPLACEMENT Right 01/28/2013 [facility] - complete right shoulder replaceement ARTHRD [...] tablet by mouth once daily. As needed xsrdqgdjkkb-fhtpsdusb-kakpobsp (TRELEGY ELLIPTA) 100-62.5-25 mcg inhalation powder Inhale [...] Cont sapna Winter PA-C documented in this encounterChildren'S Hospital For Rehabilitation07-13-2023 Instructions* Patient Instructions* Leslye Winter PA-C - 03/30/2023 7:19 AM EDT Please set up diabetic eye exam. documented in this encounterChildren'S Hospital For Rehabilitation07-07-2023 Miscellaneous Notes* Telephone Encounter - Hayde Mejia Ma - 03/24/2023 2:39 PM EDT Patient was notified Hayde Mejia Ma * Telephone Encounter - Ovidio Vincent MD - 03/24/2023 2:32 PM EDT Let patient know electrolyte panel, CBC and thyroid labs were all normal. documented in this encounterChildren'S Hospital For Rehabilitation07-06-2023 History of Present illness Narrative* Slime Hernandez LPN - 03/23/2023 7:12 AM EDT Scan on 03/22/2023 11:04 PM by External Provider, SPENCER: Consultation - Emergency Medicine documented in this encounterChildren'S Hospital For Rehabilitation07-05-2023 Miscellaneous Notes* Telephone Encounter - Ramu Alanis MA - 03/22/2023 4:13 PM EDT Spoke with patient and gave him results and instructions. Patient asked if he could just see a electrical engineering intern mynor. Provider wanted him to go to the ER. Patient first said he would go tomorrow. Expressed to patient that this could be life threatening issue. He said he would go later today to [facility]. Faxed information to the [facility] ER. Ramu Alanis MA * Telephone [...] copy of the EKG. documented in this encounterChildren'S Hospital For Rehabilitation07-05-2023 History of Present illness Narrative* Pao Lewis LPN - 03/22/2023 2:39 PM EDT Patient presents for EKG per Loretta Leon PA-C. Denies any problems at this time. Tolerated procedure well. Pao Lewis LPN documented in this encounterChildren'S Hospital For Rehabilitation07-03-2023 Miscellaneous Notes* Addendum Note - Loretta Leon PA-C - 03/20/2023 2:03 PM EDTAddended by: LORETTA LEON on: 03/20/2023 02:03 PM Modules accepted: Orders documented in this encounterChildren'S Hospital For Rehabilitation07-03-2023 History of Present illness Narrative* Loretta Leon [...] of deep veins of both lower extremities ([facility]) 02/24/2023 Eliquis started 02/2023, can stop 08/2023 Advance directive discussed with patient 09/30/2022 Discussed 09/2022: up to date Allergic rhinitis 03/15/2021 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 Day: +12; Engrafted Protocol(s): 3422 1C Preparative regimen: melphalan Mobilization regimen: neupogen and plerixafor Stem cell source: apheresis CD34 cell dose (x10e6/kg): 5.14 Date of transplant: 06/15/2018 Bilateral leg edema 09/30/2022 Cancer of the skin, 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 Cervical spondylosis without myelopathy COPD (chronic obstructive pulmonary disease) ([facility]) 03/15/2021 Diabetic eye exam ([facility]) 09/09/2021 Last done 09/09/21 No [...] transfusion Hypomagnesemia 04/22/2021 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 --ppx ACV and cipro Inflammatory polyarthropathy ([facility]) Leg DVT (deep venous thromboembolism), acute, left ([facility]) 01/02/2018 --acute DVT gastrocnemius found [...] chemotherapy can resume at discharge Multiple myeloma ([facility]) 11/28/2017 Multiple myeloma in remission ([facility]) Obesity, Class I, BMI 30-34.9 10/01/2012 Osteoarthritis of both hands Pancytopenia due to chemotherapy ([facility]) 06/25/2018 --Transfuse PRBC and platelets per protocol --GCSF Peripheral autonomic neuropathy in disorders classified elsewhere 06/07/2005 Pulmonary hypertension, unspecified ([facility]) 10/23/2019 Spinal stenosis, lumbar region, without neurogenic claudication 11/13/2006 Tobacco abuse 12/27/2011 Quit 2012 Type 2 diabetes mellitus without complication, without long-term current use of insulin ([facility]) 04/12/2018 Venous insufficiency, peripheral 01/06/2014 [...] by mouth once daily.^Disp: 90 tablet^Rfl: 1 ldcdkysvnir-pjpxdipvt-qyvikejh (TRELEGY ELLIPTA) 100-62.5-25 mcg inhalation powder^Inhale 1 [...] ANES ARTHROSCOPIC TOTAL SHOULDER REPLACEMENT Right 01/28/2013 [facility] - complete right shoulder replaceement ARTHRD [...] by Hayde Ward M.D. LDCT chest, 08/2022 [facility] ASSESSMENT/PLAN: 1. COPD with chronic bronchitis [...] cancelled it secondary to the amount of zkc-il-rtopth expense. Will reach out to Desi De Anda, manager social media, to see if there is any financial assistance available. 4. Former cigarette smoker - ICD9: V15.82, ICD10: Z87.891 Former 12-xtwx-wxuq smoker having quit in 2012 with sequelae of COPD. See #3. Portions of this documentation were copied and pasted from previous office visit notes in order to provide a cohesive continuity of the history. The note has been reviewed and edited and updated as necessary. Loretta Leon PA-C documented in this encounterChildren'S Hospital For Rehabilitation06-19-2023 Miscellaneous Notes* Telephone Encounter - Ovidio Vincent MD - 03/06/2023 10:00 PM EDT The following approved medication requests have been transmitted electronically. Requested Prescriptions Signed Prescriptions Disp Refills torsemide (DEMADEX) 20 mg tablet 90 tablet 1 Sig: Take 1.5 tablets by mouth twice daily. . Authorizing Provider: OVIDIO VINCENT MD * Telephone Encounter - Arlet Clemens LPN - 03/06/2023 12:12 PM EDT [place] with [facility] calls to verify directions on torsemide 20 mg -1.5 tab twice daily. [place] is asking for a new rx with [...] patient. Arlet Clemens LPN documented in this encounterChildren'S Hospital For Rehabilitation06-07-2023 History of Present illness Narrative* Ramu Alanis MA - 02/22/2023 5:55 PM EDT Scan on 02/17/2023 10:27 PM by External Provider, SPENCER: Consultation - Emergency Medicine Ramu Alanis MA documented in this encounterChildren'S Hospital For Rehabilitation06-02-2023 History of Present illness Narrative* Ovidio Vincent MD - 02/17/2023 8:40 AM EDT Chief Complaint Patient presents with: Edema HPI Ronnie Yarbrough is a 72 year old male who presents here today for leg swelling. Office visit - follow up - continued edema. Patient having continued swelling in both legs. Patient was seen in [facility] ER 02/10/2023 for bilateral leg swelling [...] as an appt with Dr. Enrique Sueat [facility] in January. Past medical history, appointments, medications, allergies reviewed. 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 Cervical spondylosis without myelopathy COPD (chronic obstructive pulmonary disease) ([facility]) 03/15/2021 Diabetic eye exam ([facility]) 09/09/2021 Last done 09/09/21 No [...] transfusion Hypomagnesemia 04/22/2021 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 --ppx ACV and cipro Inflammatory polyarthropathy [facility] [facility] Leg DVT (deep venous thromboembolism), acute, left ([facility]) 01/02/2018 --acute DVT gastrocnemius found [...] chemotherapy can resume at discharge Multiple myeloma ([facility]) 11/28/2017 Multiple myeloma in remission ([facility]) Obesity, Class I, BMI 30-34.9 10/01/2012 Osteoarthritis of both hands Pancytopenia due to chemotherapy ([facility]) 06/25/2018 --Transfuse PRBC and platelets per protocol --GCSF Peripheral autonomic neuropathy in disorders classified elsewhere 06/07/2005 Pulmonary hypertension, unspecified ([facility]) 10/23/2019 Spinal stenosis, lumbar region, without neurogenic claudication 11/13/2006 Tobacco abuse 12/27/2011 Quit 2013 Type 2 diabetes mellitus without complication, without long-term current use of insulin ([facility]) 04/12/2018 Venous insufficiency, peripheral 01/06/2014 Vitamin D deficiency 12/31/2014 Previous Surgical History PAST SURGICAL HISTORY Procedure Laterality Date ANES ARTHROSCOPIC TOTAL SHOULDER REPLACEMENT Right 01/28/2013 [facility] - complete right shoulder replaceement ARTHRD [...] Take 1 tablet by mouth once daily. iejpytpomlg-bnrwnoykj-mlpwjesb (TRELEGY ELLIPTA) 100-62.5-25 mcg inhalation powder Inhale [...] to be sent home. documented in this encounterChildren'S Hospital For Rehabilitation05-30-2023 History of Present illness Narrative* Hayde Mejia Ma - 02/14/2023 10:42 AM EDT Scan on 02/10/2023 4:14 PM by External Provider, SPENCER: Consultation - Emergency Medicine Scan on 02/10/2023 9:39 AM by External Provider, SPENCER: X-ray documented in this encounterChildren'S Hospital For Rehabilitation05-10-2023 History of Present illness Narrative* Rebecca Cruz Pss - 01/25/2023 2:37 PM EDT POPULATION HEALTH NAVIGATION OUTREACH Action/01/25/23 Patient returned my call from earlier, he [...] ~Left message on voice mail and sent Compass-EOShart message. Patient Identified by Name and : [...] 25, 2023 8:44 AM documented in this encounterChildren'S Hospital For Rehabilitation05-03-2023 History of Present illness Narrative* Mara Guardado RN - 01/18/2023 10:18 AM EDT [facility] Telephonic Outreach Provider Action/FYI Pt not available. Pt's , Bren, confirms that she is involved in patient's care. Bren states patient is not having any new or increased CDM symptoms. Bren states patient is doing very well. States patient was at [facility] after sustaining a cracked vertebrae in [...] more often than normal? No Based on chimney mechanic, the following disposition is advised: Symptoms present, not severe. Routed to: No Action Needed MACO Education Provided this Outreach: No Mara Guardado RN January 18, 2023 10:26 AM * Mara Guardado RN - 01/17/2023 3:28 PM EDT [facility] Telephonic Outreach Provider Mahi/FYI Made call #1 to pt. NA/Left vm. Contacted for: Routine Telephonic Outreach Contact made with patient: No, left message. Mara Guardado RN January 17, 2023 3:29 PM documented in this encounterChildren'S Hospital For Rehabilitation05-01-2023 Miscellaneous Notes* Telephone Encounter - Jeanine Dunne RN - 01/16/2023 3:10 PM EDT Patient returned call. He says everything is going well after surgery and he has a follow up @ [facility] tomorrow. Cancelled Monday's appointment. Jeanine Dunne, [...] appointment. Slime Hernandez LPN documented in this encounterChildren'S Hospital For Rehabilitation05-01-2023 History of Present illness Narrative* Slime Hernandez LPN - 01/16/2023 2:39 PM EDT TRANSITION CARE MANAGEMENT (TCM) INITIAL CONTACT Provider Action/FYI: none Initial contact with patient post discharge, spoke to patient. Patient identified by name and . TRANSITION CARE MANAGEMENT: No flowsheet data found. SUMMARY: -Pt discharged from [facility] and [facility] rehab on 01/14/23. -Follow up appointment on 01/20/23 with Leslye Winter. -Medication review done yes. -Admitted for: microdisectomy CONCERNS: None verbalized NEW MEDICATIONS: none MEDS HELD/DISCONTINUED: none BRIEF HOSPITAL COURSE: documented in this encounterChildren'S Hospital For Rehabilitation04-27-2023 History of Present illness Narrative* Ramu Alanis MA - 01/12/2023 2:16 PM EDT Scan on 01/11/2023 9:00 PM by External Provider, MATTYC: Consultation - Emergency Medicine Ramu Alanis MA documented in this encounterChildren'S Hospital For Rehabilitation04-26-[address] Davila [facility] January 11, 2023 8:54pm Note Date/Time January 11, 2023 8:4 7pm [facility] Medical Records Department [address] [place] [address] Discharge Summary 01/11/232041 MR#: [id number] Acct: [id number] Name: RONNIE YARBROUGH Rep #:[id number] : 1950 72 From: Shabbir Davila MD PCP: Dr. Ovidio Vincent MD Status:ADM IN Location: [place] [address] Providers Date of Admission: 01/05/23 Primary Care Physician: [...] home with . Discharge home with 01/14/2023, [facility] PT/OT. Physical Exam Const alert General Appearance: [...] pain Additional Instructions: Discharge home with 01/14/2023, [facility]. Please Follow Up With: Bry Sue MD When: As scheduled. Meaningful Use Info Meaningful Use Diagnoses (Choose all that apply): None applicable Discharge Plan Admission Admit Date/Time: 01/05/23 14:55 Primary Reason for Your Visit: Debility. Attending Provider: Shabbir Davila Chi Primary Care Provider: Ovidio Vincent Instructions Additional Instructions / Restrictions: Discharge home with 01/14/2023, [facility] PT/OT. Discharge Orders/Prescriptions Prescriptions: New Trelegy Ellipta 100-62.5-25 mcg Blister With Device 1 [...] 1,000 mcg Capsule 1,000 mcg PO DAILY xoxnhvirpmv-gavpjjgyc-kpbvlrxi 100-62.5-25 mcg Blister With Device 1 inh [...] Vincent MD; Dr. Shabbir Davila MD~ Signed [facility] Work Phone: 1(525) 450-330004-24-2023 History of Present illness Narrative* Ramu Alanis MA - 01/09/2023 12:32 PM EDT Scan on 01/05/2023 8:04 PM by External Provider: Consultation - Emergency Medicine Ramu Alanis MA' documented in this encounterChildren'S Hospital For Rehabilitation04-21-[address] Davila [facility] January 06, 2023 1:07pm Note Date/Time January 06, 2023 11: 55am [facility] Medical Records Department [address] [place] [address] Progress Note - Pharmacy 01/06/23 1128 MR#: [id number] Acct: [id number] Name: RONNIE YARBROUGH Rep #:[id number] : 1950 72 From: Angelica Quinteros PCP: Dr. Ovidio Vincent MD Status:ADM IN Location: [place] [address] TCU RX Drug Regimen Review Subjective: 72 [...] 81 Mg Tablet PO 81 mg DAILY TG Administration Atorvastatin Calcium 40 mg 01/05/23 22:00 01/05/23 20:46 Atorvastatin Calcium 40 Mg Tablet PO 40 mg QHS TG Administration Celecoxib 200 mg 01/05/23 18:00 01/06/23 05:07 Celecoxib 200 Mg Capsule PO 200 mg BID TG Administration Cyanocobalamin 1,000 mcg 01/06/23 06:00 01/06/23 05:07 Cyanocobalamin 500 Mcg Tablet PO 1,000 mcg DAILY TG Administration Empagliflozin 10 mg 01/06/23 06:00 01/06/23 05:07 Empagliflozin 10 Mg Tablet PO 10 mg DAILY TG Administration Furosemide 40 mg 01/06/23 06:00 01/06/23 05:10 Furosemide 40 Mg Tablet PO Not Given DAILY TG Gabapentin 300 mg 01/05/23 18:00 01/06/23 05:28 Gabapentin 300 Mg Capsule PO 300 mg BID TG Administration Hydroxychloroquine Sulfate 200 mg 01/06/23 06:00 01/06/23 05:07 Hydroxychloroquine 200 Mg Tablet PO 200 mg DAILY TG Administration Leflunomide 10 mg 01/06/23 06:00 01/06/23 05:08 Leflunomide 10 Mg Tablet PO 10 mg DAILY TG Administration Losartan Potassium 25 mg 01/06/23 06:00 01/06/23 05:10 Losartan Potassium 25 Mg Tablet PO 25 mg DAILY TG Administration Magnesium Hydroxide 30 ml 01/05/23 19:55 Magnesium Hydroxide 30 Ml Udc PO X1 PRN Constipation Melatonin 10 mg 01/05/23 17:14 01/05/23 20:52 Melatonin 10 Mg Tablet PO 10 mg QHS PRN PRN Administration INSOMNIA Metformin HCl 1,000 mg 01/05/23 17:00 01/06/23 08:02 Metformin Hcl 1,000 Mg Tablet PO 1,000 mg BIDCM TG Administration Multivitamins/Minerals 1 tablet 01/06/23 06:00 01/06/23 05:07 Multivitamins,Ther W-Minerals Tablet PO 1 tablet DAILY TG Administration Non-Formulary Medication 1.5 mg 01/09/23 15:46 Dulaglutide [Trulicity] SC MO TG Oxycodone HCl 5 mg 01/05/23 19:57 Oxycodone 5 Mg Tablet PO 01/12/23 19:56 Q4H PRN PRN Pain (Scale Score 6-10) Pantoprazole Sodium 40 mg 01/06/23 06:00 01/06/23 05:07 Pantoprazole Sodium 40 Mg Tablet PO 40 mg DAILY TG Administration Polyethylene Glycol 17 gm 01/06/23 06:00 01/06/23 05:10 Polyethylene Glycol 3350 17 Gm Packet PO Not Given DAILY TG Senna/Docusate Sodium 2 tablet 01/05/23 20:00 01/06/23 05:09 Senna/Docusate Sodium 1 Tablet PO Not Given BID TG Spironolactone 25 mg 01/06/23 06:00 01/06/23 05:07 Spironolactone 25 Mg Tablet PO 25 mg DAILY GT Administration Terbinafine HCl 250 mg 01/06/23 06:00 01/06/23 05:09 Terbinafine Hcl 250 Mg Tablet PO 01/12/23 06:01 250 mg DAILY TG Administration Tramadol HCl 50 mg 01/05/23 19:55 [...] by Shabbir Davila MD> CC: ~ Signed [facility] Work Phone: 1(484) 100-931004-20-2023 History and physical note Author Dr. Davila [facility] January 05, 2023 7:55pm Note Date/Time January 05, 2023 7:4 8pm [facility] Medical Records Department [address] [place] [address] History & Physical Exam 01/05/231940 MR#: [id number] Acct: [id number] Name: RONNIE YARBROUGH Rep #:[id number] : 1950 72 From: Shabbir Davila MD PCP: Dr. Ovidio Vincent MD Status:ADM IN Location: [facility] HPI - General General Date of Admission: 01/05/23 Date of Service: 01/05/23 Chief Complaint: Here for rehabilitation. HPI Narrative RONNIE YARBROUGH, is a 72 Male who presents with followin12/28/2022 Admit to [facility]. 12/28/2022 Dr. Bry Sue performed posterior T11-T12 microdecompression due to severe spinal nerve and cord involvement. Patient has constant back pain, bilateral lower extremity numbness, has been wheelchair bound for last week. 12/29/2022 PT/OT. SCD for DVT prophylaxis. 01/05/2023 Admit to TCU with debility, here for rehabilitation, strengthening, prior to discharge home with . [facility] Medical History (Updated 01/05/23 @ 19:45 [...] Vincent MD; Dr. Shabbir Davila MD~ Signed [facility] Work Phone: [phone]) 445-639404-05-2023 History of Present illness Narrative* Mara Guardado [...] walk. He said he is going to [facility] tomorrow, 12/22, and will be having an [...] like to speak with a social work produce production team member to help give you support for any [...] you up for automated weekly questionnaires through [employer]. This is an easy way for us [...] PtOutreach and End outreach. documented in this encounterChildren'S Hospital For Rehabilitation04-04-2023 Miscellaneous Notes* Telephone Encounter - Arlet Clemens [...] D level were ok. documented in this encounterChildren'S Hospital For Rehabilitation04-03-2023 History of Present illness Narrative* Vivian Gambino RDWY - 12/19/2022 10:45 AM EDT Radiology Service [...] 19, 2022 11:16 AM documented in this encounterChildren'S Hospital For Rehabilitation04-03-2023 Miscellaneous Notes* Telephone Encounter - Ramu Alanis [...] quickly. Ramu Alanis MA documented in this encounterChildren'S Hospital For Rehabilitation03-31-2023 History of Present illness Narrative* Ovidio Vincent [...] [facility] Past medical history, appointments, medications, allergies reviewed. 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 Day: +12; Engrafted Protocol(s): 3422 1C Preparative regimen: melphalan Mobilization regimen: neupogen and plerixafor Stem cell source: apheresis CD34 cell dose (x10e6/kg): 5.14 Date of transplant: 06/15/2018 Bilateral leg edema 09/30/2022 Cancer of the skin, 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 Cervical spondylosis without myelopathy COPD (chronic obstructive pulmonary disease) ([facility]) 03/15/2021 Diabetic eye exam ([facility]) 09/09/2021 Last done 09/09/21 No [...] Hyperlipidemia Hypomagnesemia 04/22/2021 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 --ppx ACV and cipro Inflammatory polyarthropathy (HCC) Leg DVT (deep venous thromboembolism), acute, left ([facility]) 01/02/2018 --acute DVT gastrocnemius found [...] chemotherapy can resume at discharge Multiple myeloma ([facility]) 11/28/2017 Multiple myeloma in remission ([facility]) Obesity 10/01/2012 Obesity, Class I, BMI 30-34.9 10/01/2012 Osteoarthritis of both hands Pancytopenia due to chemotherapy ([facility]) 06/25/2018 --Transfuse PRBC and platelets per protocol --GCSF Peripheral autonomic neuropathy in disorders classified elsewhere 06/07/2005 Pulmonary hypertension, unspecified ([facility]) 10/23/2019 Reflux esophagitis Spinal stenosis, lumbar region, without neurogenic claudication 11/13/2006 Tobacco abuse 12/27/2011 Quit 2013 Type 2 diabetes mellitus without complication, without long-term current use of insulin ([facility]) 04/12/2018 Venous insufficiency, peripheral 01/06/2014 Vitamin D deficiency 12/31/2014 Previous Surgical History PAST SURGICAL HISTORY Procedure Laterality Date ANES ARTHROSCOPIC TOTAL SHOULDER REPLACEMENT Right 01/28/2013 [facility] - complete right shoulder replaceement ARTHRD [...] Take 1 capsule by mouth twice daily. xyfsrhsioaz-pdbvyoftc-cfgfgdfw (TRELEGY ELLIPTA) 100-62.5-25 mcg inhalation powder Inhale [...] Lymph 1.00 - 4.00 k/uL 0.69 (L) Garfield% % 6.0 Abs Garfield <0.87 k/uL 0.27 Eosin% % 0.9 Abs [...] Negative Ketones, Urine Trace, Negative Negative Specific [place], Ur 1.005 - 1.030 1.024 Hemoglobin/Blood,Ur Negative, [...] which included preparing to see the patient, jfny-kw-slgy patient care, completing clinical documentation, performing a medically appropriate examination, counseling and educating the patient/family/caregiver and ordering medications, tests, or procedures. Keep future routine appt. Ovidio Vincent MD documented in this encounterChildren'S Hospital For Rehabilitation03-14-2023 History of Present illness Narrative* Rebecca Hurtado [facility] - 11/29/2022 5:07 PM EDT POPULATION HEALTH [...] due on 10/13/2022 Navigation Signature: Rebecca Hurtado [facility] November 29, 2022 5:12 PM documented in this encounterChildren'S Hospital For Rehabilitation03-10-2023 History of Present illness Narrative* Mara Guardado RN - 11/25/2022 11:42 AM EST INSIGHT CDM TELEPHONIC OUTREACH FYI: Pt denies any new or worsening CDM symptoms. Pt currently in [place] until mid November. Pt denies needs, questions, [...] like to speak with a social work produce production team member to help give you support for any [...] you up for automated weekly questionnaires through [employer]. This is an easy way for us [...] PtOutreach and End outreach. documented in this encounterChildren'S Hospital For Rehabilitation03-09-2023 History of Present illness Narrative* Mara Guardado RN - 11/24/2022 4:40 PM EST INSIGHT [facility] TELEPHONIC OUTREACH FYI: Made call #1 to patient. NA/Left VM. Contact made with patient: No - Left message Dolores my name is Mara Guardado RN your Front Desk Host from the [facility] I am calling todayfor your bi-weekly check in. I am sorry I missed your call. I will reach out to you again tomorrow.(if the third call I will reach out to you again next week) Enter next patient outreach date for the following day using the Track Pt Outreach. End outreach. documented in this encounterChildren'S Hospital For Rehabilitation02-20-2023 History of Present illness Narrative* Mitchel Jones [...] by mouth twice daily.^Disp: 60 capsule^Rfl: 5 bsscqrpcxtg-uqppsfpht-zzsmcjcb (TRELEGY ELLIPTA) 100-62.5-25 mcg inhalation powder^Inhale 1 [...] cc: Ela Vincent MD documented in this encounterChildren'S Hospital For Rehabilitation02-16-2023 Instructions* Patient Instructions* Ovidio Vincent MD - 11/03/2022 8:28 AM EST Come get non-fasting labs for kidnies and electrolytes on 11/11/2022 or 11/12/2022 documented in this encounterChildren'S Hospital For Rehabilitation02-16-2023 Nurse Note* Ramu Alanis MA - 11/03/2022 8:15 AM EST 135/81 True BP 134/83 143/74 148/86 120/84 129/78 documented in this encounterChildren'S Hospital For Rehabilitation02-16-2023 History of Present illness Narrative* Ovidio Vincent [...] bronchitis with chronic obstructive pulmonary disease (COPD) ([facility]) 12/30/2014 Acute on chronic systolic CHF (congestive heart failure) ([facility]) 10/04/2019 Advance directive discussed with patient 09/30/2022 Discussed 09/2022: up to date Allergic rhinitis 03/15/2021 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 Day: +12; Engrafted Protocol(s): 3422 1C Preparative regimen: melphalan Mobilization regimen: neupogen and plerixafor Stem cell source: apheresis CD34 cell dose (x10e6/kg): 5.14 Date of transplant: 06/15/2018 Cancer of the skin, 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 Cervical spondylosis without myelopathy COPD (chronic obstructive pulmonary disease) ([facility]) 03/15/2021 Diabetic eye exam ([facility]) 09/09/2021 Last done 09/09/21 No [...] Hyperlipidemia Hypomagnesemia 04/22/2021 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 --ppx ACV and cipro Inflammatory polyarthropathy ([facility]) Leg DVT (deep venous thromboembolism), acute, left ([facility]) 01/02/2018 --acute DVT gastrocnemius found [...] chemotherapy can resume at discharge Multiple myeloma ([facility]) 11/28/2017 Multiple myeloma in remission ([facility]) Obesity 10/01/2012 Obesity, Class I, BMI 30-34.9 10/01/2012 Osteoarthritis of both hands Pancytopenia due to chemotherapy ([facility]) 06/25/2018 --Transfuse PRBC and platelets per protocol --GCSF Peripheral autonomic neuropathy in disorders classified elsewhere 06/07/2005 Pulmonary hypertension, unspecified ([facility]) 10/23/2019 Reflux esophagitis Spinal stenosis, lumbar region, without neurogenic claudication 11/13/2006 Tobacco abuse 12/27/2011 Quit 2013 Type 2 diabetes mellitus without complication, without long-term current use of insulin ([facility]) 04/12/2018 Venous insufficiency, peripheral 01/06/2014 Vitamin D deficiency 12/31/2014 Previous Surgical History PAST SURGICAL HISTORY Procedure Laterality Date ANES ARTHROSCOPIC TOTAL SHOULDER REPLACEMENT Right 01/28/2013 [facility] - complete right shoulder replaceement ARTHRD [...] HX Right shoulder HARRIS W/O FACETEC FORAMOT/DSC 1/ VRT SGM CRV 2007 Laminectomy, cervical PAST [...] Take 1 capsule by mouth twice daily. ieamdczrpef-npmnntfny-zfqdzzaj (TRELEGY ELLIPTA) 100-62.5-25 mcg inhalation powder Inhale [...] weeks Ovidio Vincent MD documented in this encounterChildren'S Hospital For Rehabilitation02-10-2023 History of Present illness Narrative* Hayde Ward MD - 10/28/2022 9:30 AM EST Images from the original note were not included. . [facility] [place] Note Patient name: Ronnie Yarbrough PCP: Ovidio Vincent MD CC: COPD HPI: Ronnie Yarbrough 72 year old male former 40 pack year smoker, quitting 2011 with PMH significant for MM s/p BMT, COPD/CB, HTN, HLD, diastolic heart failure, inflammatory polyarthropathy and pulmonarynodules. At [facility] changed inhaled therapy to Trelegy Ellipta [...] images of his low-dose chest CT from [facility] compared to his chest CT. Impression described in HPI PAST MEDICAL HISTORY Diagnosis Date Acute bronchitis with chronic obstructive pulmonary disease (COPD) ([facility]) 12/30/2014 Acute on chronic systolic CHF (congestive heart failure) ([facility]) 10/04/2019 Advance directive discussed with patient 09/30/2022 Discussed 09/2022: up to date Allergic rhinitis 03/15/2021 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 Day: +12; Engrafted Protocol(s): 3422 1C Preparative regimen: melphalan Mobilization regimen: neupogen and plerixafor Stem cell source: apheresis CD34 cell dose (x10e6/kg): 5.14 Date of transplant: 06/15/2018 Cancer of the skin, 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 Cervical spondylosis without myelopathy COPD (chronic obstructive pulmonary disease) ([facility]) 03/15/2021 Diabetic eye exam ([facility]) 09/09/2021 Last done 09/09/21 No [...] Hyperlipidemia Hypomagnesemia 04/22/2021 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 --ppx ACV and cipro Inflammatory polyarthropathy ([facility]) Leg DVT (deep venous thromboembolism), acute, left ([facility]) 01/02/2018 --acute DVT gastrocnemius found [...] chemotherapy can resume at discharge Multiple myeloma ([facility]) 11/28/2017 Multiple myeloma in remission ([facility]) Obesity 10/01/2012 Obesity, Class I, BMI 30-34.9 10/01/2012 Osteoarthritis of both hands Pancytopenia due to chemotherapy ([facility]) 06/25/2018 --Transfuse PRBC and platelets per protocol --GCSF Peripheral autonomic neuropathy in disorders classified elsewhere 06/07/2005 Pulmonary hypertension, unspecified ([facility]) 10/23/2019 Reflux esophagitis Spinal stenosis, lumbar region, without neurogenic claudication 11/13/2006 Tobacco abuse 12/27/2011 Quit 2013 Type 2 diabetes mellitus without complication, without long-term current use of insulin ([facility]) 04/12/2018 Venous insufficiency, peripheral 01/06/2014 [...] twice daily with meals.^Disp: 60 tablet^Rfl: 5 ufyrylqtutf-pxgdjbnai-edftfoju (TRELEGY ELLIPTA) 100-62.5-25 mcg inhalation powder^Inhale 1 [...] 6 months 3. Former cigarette smoker -Former 90-yjta-lfnf smoker having quit in 2012 -Lung cancer screening Hayde Ward MD [facility] [place] documented in this encounterChildren'S Hospital For Rehabilitation02-06-2023 Miscellaneous Notes* Telephone Encounter - Nargis Fox Ma - 10/24/2022 10:58 AM EST Pt should have refills remaining at pharmacy. Metformin refilled on 08/29/22 #60 with 5 refills. Ptnotified via [employer]hart. Nargis Fox Ma documented in this encounterChildren'S Hospital For Rehabilitation02-06-2023 Miscellaneous Notes* Telephone Encounter - Ramu Alanis [...] ? Please advise patient. documented in this encounterChildren'S Hospital For Rehabilitation01-26-2023 Miscellaneous Notes* Telephone Encounter - Ramu Alanis MA - 10/13/2022 4:51 PM EST Spoke with patient to verify he sees Dr. Reza. Ramu Alanis MA documented in this encounterChildren'S Hospital For Rehabilitation01-26-2023 Miscellaneous Notes* Telephone Encounter - Ramu Alanis [...] activity can help increase. documented in this encounterChildren'S Hospital For Rehabilitation01-26-2023 Miscellaneous Notes* Telephone Encounter - Ovidio Vincent MD - 10/13/2022 1:07 PM EST Noted. * Telephone Encounter - Ramu Alanis MA - 10/13/2022 11:51 AM EST Contacted Alexandro Houser and their chart reads that patient received Shingrix 02/01/21; 04/07/21; 06/14/22 09/05/22. Ramu Alanis MA documented in this encounterChildren'S Hospital For Rehabilitation01-19-2023 Miscellaneous Notes* Telephone Encounter - Ramu Alanis [...] issues with his hardware. documented in this encounterChildren'S Hospital For Rehabilitation01-16-2023 History of Present illness Narrative* Xochilt Adamson, RT(R) - 10/03/2022 8:10 AM EST Radiology [...] 03, 2022 8:08 AM documented in this encounterChildren'S Hospital For Rehabilitation01-13-2023 Miscellaneous Notes* Telephone Encounter - Ramu Alanis MA - 09/30/2022 2:17 PM EST Sent Consult Office referral Office visits Insurance card Demo Waiting on x-ray results. Ramu Alanis MA ' documented in this encounterChildren'S Hospital For Rehabilitation01-13-2023 History of Present illness Narrative* [place] Verde - 09/30/2022 10:42 AM EST POPULATION HEALTH NAVIGATION OUTREACH Action/I [place] Support: Called pt to schedule an appt in Pain Management. Lvm for pt to call [phone] for scheduling. Pt identified by name and : NO Outreach Outcome/Action Unable to reach patient: Left message Did you use a PCP flex slot to schedule this appointment? No Reason for Outreach Care Gap or Scheduling/Wellness visits Payer: Payor: [employer] MEDICARE / Plan: AET MEDICARE PPO / Product Type: PPO / Care Gap Reviewed:: Specialty Scheduling Reminder: Reminder note to check Health Maintenance for items below Health Maintenance items due: DILATED RETINAL EXAM due on 09/09/2022 COLORECTAL CANCER SCREENING due on 09/25/2022 URINE ALBUMIN:CREATININE RATIO due on 10/07/2022 Navigation Signature: China Verde September 30, 2022 10:42 AM documented in this encounterChildren'S Hospital For Rehabilitation01-13-2023 Nurse Note* Ramu Alanis MA - 09/30/2022 9:16 AM EST Faxed request to [facility] for most currently exam. Faxed referral request to Dr. Scherer. Ramu Alanis MA documented in this encounterChildren'S Hospital For Rehabilitation01-13-2023 History of Present illness Narrative* Ovidio Vincent MD - 09/30/2022 8:00 AM EST Images from the original note were not included. 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 Day: +12; Engrafted Protocol(s): 3422 1C Preparative regimen: melphalan Mobilization regimen: neupogen and plerixafor Stem cell source: apheresis CD34 cell dose (x10e6/kg): 5.14 Date of transplant: 06/15/2018 Cervical spondylosis without myelopathy COPD (chronic obstructive pulmonary disease) ([facility]) 03/15/2021 Diabetic eye exam ([facility]) 09/09/2021 Last done 09/09/[address] Juve Reza Essential hypertension Essential hypertension 06/13/2018 -On lisinopril 10mg daily ( home med) -Will d/c for now given hyperkalemia . 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 --ppx ACV and cipro Inflammatory polyarthropathy ([facility]) Leg DVT (deep venous thromboembolism), acute, left ([facility]) 01/02/2018 --acute DVT gastrocnemius found 12/13/2017 --continue apixaban till platelets <50K, last dose 06/21/2018 Low serum vitamin B12 04/22/2021 Lumbar spinal stenosis Mixed hyperlipidemia 10/31/2006 --will hold atorvastatin d/t interactions with chemotherapy can resume at discharge Multiple myeloma ([facility]) 11/28/2017 Multiple myeloma in remission ([facility]) Obesity 10/01/2012 Osteoarthritis of both hands Osteoarthrosis, unspecified whether generalized or localized, other specified sites Pancytopenia due to chemotherapy ([facility]) 06/25/2018 --Transfuse PRBC and platelets per protocol --GCSF Peripheral autonomic neuropathy in disorders classified elsewhere 06/07/2005 Pulmonary hypertension, unspecified ([facility]) 10/23/2019 Reflux esophagitis Spinal stenosis, lumbar region, without neurogenic claudication 11/13/2006 Tobacco abuse 12/27/2011 Quit 2013 Type 2 diabetes mellitus without complication, without long-term current use of insulin ([facility]) 04/12/2018 Venous (peripheral) insufficiency Venous insufficiency, peripheral 01/06/2014 Vitamin D deficiency 12/31/2014 PAST SURGICAL HISTORY PAST SURGICAL HISTORY Procedure Laterality Date ANES ARTHROSCOPIC TOTAL SHOULDER REPLACEMENT Right 01/28/2013 [facility] - complete right shoulder replaceement ARTHRD ANT INTERBODY MIN DSC LUMBAR 2009 ARTHROTOMY W/MENISCUS REPAIR KNEE 1981 RIGHT ARTHROTOMY W/MENISCUS REPAIR KNEE 1982 LEFT ARTHRP KNE CONDYLE&PLATU MEDIAL&LAT COMPARTMENTS Right 2007 Knee replacement, total COLONOSCOPY FLX DX W/COLLJ SPEC WHEN PFRMD 09/25/2012 normal colonoscopy - 10 year follow up EGD TRANSORAL BIOPSY SINGLE/MULTIPLE 09/25/2012 mild distal esophagitis HARRIS W/O FACETEC FORAMOT/DSC 1/ VRT SGM CRV 2008 Laminectomy, cervical PAST SURGICAL HISTORY OF Right 08/23/2021 carpal tunnel release with wrist arthrotomy and synovectomy PAST SURGICAL HISTORY OF Right 08/23/2021 ulnar nerve decompression TONSILLECTOMY PRIMARY/SECONDARY AGE 13/> 1986 Tonsillectomy ALLERGIES: Gabapentin Medications reviewed: Yes FAMILY [...] quittin.8 Smokeless tobacco: Never Used Tobacco comment: 1/4 [...] no neurogenic claudication with ambulation. 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 Day: +12; Engrafted Protocol(s): 3422 1C Preparative regimen: melphalan Mobilization regimen: neupogen and plerixafor Stem cell source: apheresis CD34 cell dose (x10e6/kg): 5.14 Date of transplant: 06/15/2018 Cancer of the skin, 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 Cervical spondylosis without myelopathy COPD (chronic obstructive pulmonary disease) ([facility]) 03/15/2021 Diabetic eye exam ([facility]) 09/09/2021 Last done 09/09/21 No [...] Hyperlipidemia Hypomagnesemia 04/22/2021 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 --ppx ACV and cipro Inflammatory polyarthropathy ([facility]) Leg DVT (deep venous thromboembolism), acute, left ([facility]) 01/02/2018 --acute DVT gastrocnemius found 12/13/2017 --continue apixaban till platelets <50K, last dose 06/21/2018 Low serum vitamin B12 04/22/2021 Lumbar spinal stenosis Medicare annual wellness visit, subsequent 10/06/2021 Medicare part B: Not able to find, Last done: 10/06/2021 Mixed hyperlipidemia 10/31/2006 --will hold atorvastatin d/t interactions with chemotherapy can resume at discharge Multiple myeloma ([facility]) 11/28/2017 Multiple myeloma in remission ([facility]) Obesity 10/01/2012 Osteoarthritis of both hands Pancytopenia due to chemotherapy ([facility]) 06/25/2018 --Transfuse PRBC and platelets per protocol --GCSF Peripheral autonomic neuropathy in disorders classified elsewhere 06/07/2005 Pulmonary hypertension, unspecified ([facility]) 10/23/2019 Reflux esophagitis Spinal stenosis, lumbar region, without neurogenic claudication 11/13/2006 Tobacco abuse 12/27/2011 Quit 2013 Type 2 diabetes mellitus without complication, without long-term current use of insulin ([facility]) 04/12/2018 Venous insufficiency, peripheral 01/06/2014 Vitamin D deficiency 12/31/2014 Previous Surgical History PAST SURGICAL HISTORY Procedure Laterality Date ANES ARTHROSCOPIC TOTAL SHOULDER REPLACEMENT Right 01/28/2013 [facility] - complete right shoulder replaceement ARTHRD [...] tablet by mouth twice daily with meals. btxxjwyiyzy-mhitgxsdk-azcardvx (TRELEGY ELLIPTA) 100-62.5-25 mcg inhalation powder Inhale [...] - 4.00 k/uL 0.70 (L) 0.61 (L) Garfield% % 8.5 8.4 Abs Garfield <0.87 k/uL 0.39 0.39 Eosin% % 1.1 [...] Negative Negative Ketones, Urine Negative Negative Specific [place], Ur 1.005 - 1.030 1.028 Hemoglobin/Blood,Ur Negative [...] (HCC) - ICD9: 496, ICD10: J44.9 - management per Pulm 7. Pulmonary hypertension, unspecified (HCC) - ICD9: 416.8, ICD10: I27.20 - as per #6 8. Peripheral autonomic neuropathy in disorders classified elsewhere - ICD9: 337.1, ICD10: G99.0 - clinically stable. 9. Multiple myeloma in remission (HCC) - ICD9: 203.01, ICD10: C90.01 - management per Heme/Onc 10. Multiple myeloma, remission status unspecified (HCC) - ICD9: 203.00, ICD10: C90.00 - as per #9 11. 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) - ICD9: 284.11, ICD10: D61.810 - as per #9 - CBC + DIFF 12. 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HCC) - ICD9: V42.82, ICD10: Z94.84 - as [...] which included preparing to see the patient, iinu-ph-estv patient care, completing clinical documentation, performing a medically appropriate examination, counseling and educating the patient/family/caregiver and ordering medications, tests, or procedures. Ovidio Vincent MD documented in this encounterChildren'S Hospital For Rehabilitation01-04-2023 History of Present illness Narrative* Nargis Ortega RN - 09/21/2022 11:35 AM EST INSIGHT CD TELEPHONIC OUTREACH Provider Action/FYI: Contact made with patient: No - Left message Hello my name is Nargis Ortega RN your Front Desk Host [facility] I am calling today for your monthly check in. I am sorry I missed your call. I will reach out to you again next month. (if the third call I will reach out to you again next week) Enter next patient outreach date for the following business day using the Track Pt Outreach. End outreach. documented in this encounterChildren'S Hospital For Rehabilitation12-19-2022 Miscellaneous Notes* Telephone Encounter - Ramu Alanis MA - 09/05/2022 11:06 AM EST Prescription order with another phone encounter. Ramu Alanis MA documented in this encounterChildren'S Hospital For Rehabilitation12-19-2022 Miscellaneous Notes* Telephone Encounter - Ramu Alanis [...] 09/2022 Last refill: 02/2022 documented in this encounterChildren'S Hospital For Rehabilitation12-19-2022 Miscellaneous Notes* Telephone Encounter - Sangita Martinez LPN - 09/05/2022 10:56 AM EST Valid RX at pharmacy Sangita Martinez LPN documented in this encounterChildren'S Hospital For Rehabilitation12-13-2022 Miscellaneous Notes* Telephone Encounter - Sangita Martinez LPN - 08/30/2022 12:58 PM EST Order is for low dose CT Chest. Yaquelin notified, order already in place. Sangita Martinez LPN * Telephone Encounter - Maria Alejandra Montenegro RN - 08/30/2022 12:33 PM EST Yaquelin from [facility] scheduling called. Ronnie is at [facility] stating that he needs a chest x-ray, but does not have an order. I looked through the imaging tab in [employer] and I do not see an order. Attempted to call pulmonary nurse, no answer. Went to the unit and she was not there. Please contact either Yaquelin or Christy at [phone]. Maria Alejandra Montenegro RN documented in this encounterChildren'S Hospital For Rehabilitation12-12-2022 Miscellaneous Notes* Telephone Encounter - Ovidio Vincent [...] 09/30/22 Slime Hernandez LPN documented in this encounterChildren'S Hospital For Rehabilitation12-12-2022 Miscellaneous Notes* Telephone Encounter - Slime Hernandez LPN - 08/29/2022 11:47 AM EST This is being addressed in additional refill encounter. Slime Hernandez LPN documented in this encounterChildren'S Hospital For Rehabilitation12-12-2022 Miscellaneous Notes* Telephone Encounter - Sangita Martinez LPN - 08/29/2022 10:00 AM EST Trelegy refills available at pharmacy. Sangita Martinez LPN documented in this encounterChildren'S Hospital For Rehabilitation12-07-2022 History of Present illness Narrative* Nargis Ortega RN - 08/24/2022 9:37 AM EST INSIGHT CD TELEPHONIC OUTREACH Provider Action/FYI: Patient reports he [...] like to speak with a social work produce production team member to help give you support for any [...] you up for automated weekly questionnaires through [employer]. This is an easy way for us [...] PtOutreach and End outreach. documented in this encounterChildren'S Hospital For Rehabilitation12-06-2022 History of Present illness Narrative* Nargis Ortega RN - 08/23/2022 11:38 AM EST INSIGHT M TELEPHONIC OUTREACH Provider Action/FYI: Contact made with patient: No - Left message Dolores my name is Nargis Ortega RN your Front Desk Host from [facility] I am calling today for your monthly check in. I am sorry I missed your call. I will reach out to you again tomorrow. (if the third call I will reach out to you again next week) Enter next patient outreach datefor the following using the Track Pt Outreach. End outreach. documented in this encounterChildren'S Hospital For Rehabilitation11-21-2022 Instructions* Patient Instructions* Hayde Ward MD - 08/08/2022 10:03 AM EST Astepro nasal spray documented in this encounterChildren'S Hospital For Rehabilitation11-21-2022 History of Present illness Narrative* Hayde Ward MD - 08/08/2022 9:30 AM EST Images from the original note were not included. . 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 Day: +12; Engrafted Protocol(s): 3422 1C Preparative regimen: melphalan Mobilization regimen: neupogen and plerixafor Stem cell source: apheresis CD34 cell dose (x10e6/kg): 5.14 Date of transplant: 06/15/2018 Cancer of the skin, 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 Cervical spondylosis without myelopathy COPD (chronic obstructive pulmonary disease) ([facility]) 03/15/2021 Diabetic eye exam ([facility]) 09/09/2021 Last done 09/09/21 No [...] Hyperlipidemia Hypomagnesemia 04/22/2021 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 --ppx ACV and cipro Inflammatory polyarthropathy ([facility]) Leg DVT (deep venous thromboembolism), acute, left ([facility]) 01/02/2018 --acute DVT gastrocnemius found 12/13/2017 --continue apixaban till platelets <50K, last dose 06/21/2018 Low serum vitamin B12 04/22/2021 Lumbar spinal stenosis Medicare annual wellness visit, subsequent 10/06/2021 Medicare part B: Not able to find, Last done: 10/06/2021 Mixed hyperlipidemia 10/31/2006 --will hold atorvastatin d/t interactions with chemotherapy can resume at discharge Multiple myeloma ([facility]) 11/28/2017 Multiple myeloma in remission ([facility]) Obesity 10/01/2012 Osteoarthritis of both hands Pancytopenia due to chemotherapy ([facility]) 06/25/2018 --Transfuse PRBC and platelets per protocol --GCSF Peripheral autonomic neuropathy in disorders classified elsewhere 06/07/2005 Pulmonary hypertension, unspecified ([facility]) 10/23/2019 Reflux esophagitis Spinal stenosis, lumbar region, without neurogenic claudication 11/13/2006 Tobacco abuse 12/27/2011 Quit 2012 Type 2 diabetes mellitus without complication, without long-term current use of insulin ([facility]) 04/12/2018 Venous insufficiency, peripheral 01/06/2014 [...] 1 capsule by mouth once daily.^Disp: ^Rfl: sfsfgxmbrzo-jzdqcreid-mnfdgols (TRELEGY ELLIPTA) 100-62.5-25 mcg inhalation powder^Inhale 1 [...] ANES ARTHROSCOPIC TOTAL SHOULDER REPLACEMENT Right 01/28/2013 [facility] - complete right shoulder replaceement ARTHRD [...] LDCT chest for lung cancer screening. Prefers [facility] 3. Postnasal drip -Instructed to obtain OTC Astepro nasal spray Hayde Ward MD Respiratory [place] documented in this encounterChildren'S Hospital For Rehabilitation11-10-2022 Miscellaneous Notes* Telephone Encounter - Ela Alvarez MD - 07/28/2022 11:45 AM EST Patient's request for medication is as follows Requested Prescriptions Signed Prescriptions Disp Refills SLOW-MAG 71.5 mg TbEC 120 tablet 3 Sig: take 2 tablets by mouth twice a day Authorizing Provider: ELA ALVAREZ Order entered - please phone pharmacy and notify patient. Ela Alvarez MD documented in this encounterChildren'S Hospital For Rehabilitation10-17-2022 History of Present illness Narrative* Ovidio Vincent [...] some time. Patient was seeing Rheumatology in [place] and back in March requested a second opinion and was referred to [facility] but an appt was never set up. Has noted some swelling in the wrists and sometimes are warm. No redness. Has been wearing a compression wrist band that does help. Patient used to be on plaquenil and prn prednisone when seeing previous [employer] but only helped slightly. Patient has been [facility] but no longer helping. Patient noting issues with ED. Patient with Hx of diabetes, HTN and ex-smoker. Past medical history, appointments, medications, allergies reviewed. 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 Day: +12; Engrafted Protocol(s): 3422 1C Preparative regimen: melphalan Mobilization regimen: neupogen and plerixafor Stem cell source: apheresis CD34 cell dose (x10e6/kg): 5.14 Date of transplant: 06/15/2018 Cancer of the skin, 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 --ppx ACV and cipro Inflammatory polyarthropathy ([facility]) Leg DVT (deep venous thromboembolism), acute, left ([facility]) 01/02/2018 --acute DVT gastrocnemius found 12/13/2017 --continue apixaban till platelets <50K, last dose 06/21/2018 Low serum vitamin B12 04/22/2021 Lumbar spinal stenosis Medicare annual wellness visit, subsequent 10/06/2021 Medicare part B: Not able to find, Last done: 10/06/2021 Mixed hyperlipidemia 10/31/2006 --will hold atorvastatin d/t interactions with chemotherapy can resume at discharge Multiple myeloma ([facility]) 11/28/2017 Multiple myeloma in remission ([facility]) Obesity 10/01/2012 Osteoarthritis of both hands Pancytopenia due to chemotherapy ([facility]) 06/25/2018 --Transfuse PRBC and platelets per protocol --GCSF Peripheral autonomic neuropathy in disorders classified elsewhere 06/07/2005 Pulmonary hypertension, unspecified ([facility]) 10/23/2019 Reflux esophagitis Spinal stenosis, lumbar region, without neurogenic claudication 11/13/2006 Tobacco abuse 12/27/2011 Quit 2012 Type 2 diabetes mellitus without complication, without long-term current use of insulin ([facility]) 04/12/2018 Venous (peripheral) insufficiency Venous insufficiency, peripheral 01/06/2014 Vitamin D deficiency 12/31/2014 Previous Surgical History PAST SURGICAL HISTORY Procedure Laterality Date ANES ARTHROSCOPIC TOTAL SHOULDER REPLACEMENT Right 01/28/2013 [facility] - complete right shoulder replaceement ARTHRD [...] JOINT REPLACEMENT HX HARRIS W/O FACETEC FORAMOT/DSC 1/2 VRT SGM [...] which included preparing to see the patient, clbz-jt-gnnt patient care, completing clinical documentation, performing a medically appropriate examination, counseling and educating the patient/family/caregiver and ordering medications, tests, or procedures. Ovidio Vincent MD documented in this encounterChildren'S Hospital For Rehabilitation10-17-2022 Miscellaneous Notes* Telephone Encounter - Ela Alvarez [...] patient. Ela Alvarez MD documented in this encounterChildren'S Hospital For Rehabilitation10-17-2022 Miscellaneous Notes* Telephone Encounter - Ramu Alanis [...] 09/2022 Last refill: 12/2021 documented in this encounterChildren'S Hospital For Rehabilitation10-12-2022 History of Present illness Narrative* Nargis Ortega RN - 06/29/2022 9:32 AM EDT INSIGHT CDM TELEPHONIC OUTREACH Provider Action/FYI: Contact made with patient: No - Left message Hello my name is Nargis Ortega RN your Front Desk Host from the [facility] I am calling today for your monthly check in. I am sorry I missed your call. I will reach out to you again next month. (if the third call I will reach out to you again next week) Enter next patient outreach date for the following business day using the Track Pt Outreach. End outreach. documented in this encounterChildren'S Hospital For Rehabilitation10-11-2022 History of Present illness Narrative* Nargis Ortega RN - 06/28/2022 11:28 AM EDT INSIGHT [facility] TELEPHONIC OUTREACH Provider Action/FYI: Contact made with patient: No - Left message Dolores my name is Nargis Ortega RN your Front Desk Host from the [facility] I am calling today for your monthly check in. I am sorry I missed your call. I will reach out to you again tomorrow. (if the third call I will reach out to you again next week) Enter next patient outreach datefor the following business day using the Track Pt Outreach. End outreach. documented in this encounterChildren'S Hospital For Rehabilitation09-22-2022 Miscellaneous Notes* Telephone Encounter - Madison Hyde LPN - 06/09/2022 3:21 PM EDT Patient phones requesting refills as follows: Requested Prescriptions Pending Prescriptions Disp Refills dapagliflozin (FARXIGA) 5 mg tablet 30 tablet 5 Sig: Take 1 tablet by mouth once daily. Take one daily in the morning MCKENNA-03/22/22 Labs-06/07/22 NOV-09/30/22 med filled 11/03/21 Please review and advise. Madison Hyde LPN documented in this encounterChildren'S [facility] Rehabilitation09-21-2022 Miscellaneous Notes* Telephone Encounter - Nargis Fox [...] 09/2022 Last refill: 06/2021 documented in this encounterChildren'S [facility]09-15-2022 History of Present illness Narrative* Franco Zuñiga MD - 06/02/2022 8:01 AM EDT Patient presents with: Right Hand - Established Patient, Post Op: 8 wks postop excision ganglion cyst right 5th finger Franco Zuñiga MD Department of Orthopaedics Orthopaedics [address] [place] [address] Dept: [phone] Dept June 02, 2022 CHIEF COMPLAINT: Established [...] Gabapentin Franco Zuñiga MD documented in this encounterChildren'S [facility]09-13-2022 History of Present illness Narrative* Nargis Ortega RN - 05/31/2022 10:39 AM EDT INSIGHT [facility] TELEPHONIC OUTREACH Provider Action/FYI: Patient reports he is doing good, getting ready to go on another mission trip to [place]. Patient had no questions, concerns, needs at [...] like to speak with a social work produce production team member to help give you support for any [...] you up for automated weekly questionnaires through [employer]. This is an easy way for us [...] PtOutreach and End outreach. documented in this encounterChildren'S Hospital [facility] Rehabilitation08-24-2022 History of Present illness Narrative* Nargis Ortega RN - 05/11/2022 9:35 AM EDT [facility]IGHT [facility] TELEPHONIC OUTREACH Provider Action/FYI: Per chart review, patient is out of town, will return May 27. Left detailed message on voicemail advising to return call to this nurse for any questions, concerns, needs. Will follow up when patient is back in town. Contact made with patient: No - Left message Dolores my name is Nargis Ortega RN your Front Desk Host from the [facility] I am calling today for your monthly check in. I am sorry I missed your call. I will reach out to you again next month. (if the third call I will reach out to you again next week) Enter next patient outreach date for the following using the Track Pt Outreach. End outreach. documented in this encounterChildren'S Hospital [facility] Rehabilitation08-11-2022 History of Present illness Narrative* Franco Zuñiga [...] of Orthopaedics Orthopaedics [address] [place] [address] Dept: [phone] Dept April CHIEF COMPLAINT: Follow Up, Post [...] Gabapentin Franco Zuñiga MD documented in this encounterChildren'S Hospital For Rehabilitation08-09-2022 History of Present illness Narrative* Ela Alvarez MD - 04/26/2022 9:34 AM EDT PATIENT NAME: Ronnie Yarbrough. CLINIC NO: [id number]. ATTENDING PHYSICIAN: Ela Alvarez MD. DATE OF [...] Lymph 1.00 - 4.00 k/uL 0.61 (L) Garfield% % 8.4 Abs Garfield <0.87 k/uL 0.39 Eosin% % 0.9 Abs [...] IgM 40 - 230 mg/dL 24 (L) [place] Free, Serum 3.3 - 19.4 mg/L 14.3 [...] > 3.5.standard risk cytogenetics, multiple myeloma- IgG [place] Light [employer]; although his total M protein has been 0.0 - Status autologous bone marrow transplant August 2018 in [place]. Almost 3 1/2 years since he achieved complete remission 1) multiple myeloma - First [place] after bone marrow transplant with no M-protein and normal [place] / Lambda ratio. In complete remission for [...] Cc: Dr. Ovidio Vincent documented in this encounterChildren'S Hospital For Rehabilitation08-08-2022 Miscellaneous Notes* Telephone Encounter - Nargis Fox Ma - 04/25/2022 12:45 PM EDT Last office visit: 03/22/22 F/u scheduled: 09/30/22 Nargis Fox Ma documented in this encounterChildren'S Hospital For Rehabilitation08-02-2022 Miscellaneous Notes* Telephone Encounter - Slime Hernandez [...] day. Leslye Winter PA-C documented in this encounterChildren'S Hospital For Rehabilitation08-01-2022 History of Present illness Narrative* Mary Lopez PA-C - 04/18/2022 10:00 AM EDT Mary Lopez PA-C Department of Orthopaedics Orthopaedics [address] [facility] [address] Dept: [phone] Dept April 18, 2022 CHIEF COMPLAINT: Post [...] Gabapentin This note was partially generated using [employer] voice recognition system, and there may be [...] hand. Denies pain today. documented in this encounterChildren'S Hospital For Rehabilitation08-01-2022 History of Present illness Narrative* RT Kris(R) [...] 18, 2022 8:02 AM documented in this encounterChildren'S Hospital [facility] Rehabilitation07-25-2022 Miscellaneous Notes* Telephone Encounter - Carmen Moyer [...] he need an OT? documented in this encounterChildren'S Hospital For Rehabilitation07-19-2022 Miscellaneous Notes* Telephone Encounter - Ela Alvarez [...] patient. Ela Alvarez MD documented in this encounterChildren'S Hospital For Rehabilitation07-15-2022 Miscellaneous Notes* Telephone Encounter - Mellisa Herrera Ma - 04/01/2022 10:50 AM EDT Surgery has been scheduled as requested. * Telephone Encounter - Carmen Moyer RN - 03/29/2022 4:05 PM EDT Per Delfina, will need to get approval if any code needed beyond [address], but ok to use this code. Surgical request placed. Post-ops scheduled and mailed to pt. * Telephone Encounter - Carmen Moyer RN - 03/29/2022 9:42 AM EDT Attempted to place surgical request placed 04-07-2022 in [place] for 1.right small finger, excision of ganglio/ soft tissue mass, 2. right small finger, trigger release and palmar fasciectomy 3. left dorsum hand ganglion cyst excision. Procedure codes used in [place] not accepted. LM for OR co-ordinator Delfina Chang to call to discuss. documented in this encounterChildren'S Hospital For Rehabilitation07-11-2022 Miscellaneous Notes* Telephone Encounter - Ovidio Vincent [...] take 1 tablet by mouth once daily WLIFREDO: Yes RX INSTRUCTIONS: Patient aware RX will be sent to pharmacy. No need to notify patient. Ramu Alanis MA Mckenna: 03/2022 Nov: 09/2022 Requesting 90 day supply documented in this encounterChildren'S Hospital For Rehabilitation07-11-2022 History of Present illness Narrative* Franco Zuñiga MD - 03/28/2022 10:36 AM EDT Franco Zuñiga MD Department of Orthopaedics Orthopaedics [address] [facility] [address] Dept: [phone] Dept March 28, 2022 Consultation requested by [...] bronchitis with chronic obstructive pulmonary disease (COPD) ([facility]) 12/30/2014 Acute on chronic systolic CHF (congestive heart failure) ([facility]) 10/04/2019 Allergic rhinitis 03/15/2021 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 Day: +12; Engrafted Protocol(s): 3422 1C Preparative regimen: melphalan Mobilization regimen: neupogen and plerixafor Stem cell source: apheresis CD34 cell dose (x10e6/kg): 5.14 Date of transplant: 06/15/2018 Cancer of the skin, 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 --ppx ACV and cipro Inflammatory polyarthropathy ([facility]) Leg DVT (deep venous thromboembolism), acute, left ([facility]) 01/02/2018 --acute DVT gastrocnemius found 12/13/2017 --continue apixaban till platelets <50K, last dose 06/21/2018 Low serum vitamin B12 04/22/2021 Lumbar spinal stenosis Medicare annual wellness visit, subsequent 10/06/2021 Medicare part B: Not able to find, Last done: 10/06/2021 Mixed hyperlipidemia 10/31/2006 --will hold atorvastatin d/t interactions with chemotherapy can resume at discharge Multiple myeloma ([facility]) 11/28/2017 Multiple myeloma in remission ([facility]) Obesity 10/01/2012 Osteoarthritis of both hands Pancytopenia due to chemotherapy ([facility]) 06/25/2018 --Transfuse PRBC and platelets per protocol --GCSF Peripheral autonomic neuropathy in disorders classified elsewhere 06/07/2005 Pulmonary hypertension, unspecified ([facility]) 10/23/2019 Reflux esophagitis Spinal stenosis, lumbar region, without neurogenic claudication 11/13/2006 Tobacco abuse 12/27/2011 Quit 2012 Type 2 diabetes mellitus without complication, without long-term current use of insulin ([facility]) 04/12/2018 Venous (peripheral) insufficiency Venous insufficiency, peripheral 01/06/2014 Vitamin D deficiency 12/31/2014 Past Surgical History: PAST SURGICAL HISTORY Procedure Laterality Date ANES ARTHROSCOPIC TOTAL SHOULDER REPLACEMENT Right 01/28/2013 [facility] - complete right shoulder replaceement ARTHRD [...] either mail or electronic medical record. 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 Day: +12; Engrafted Protocol(s): 3422 1C Preparative regimen: melphalan Mobilization regimen: neupogen and plerixafor Stem cell source: apheresis CD34 cell dose (x10e6/kg): 5.14 Date of transplant: 06/15/2018 Cancer of the skin, 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 --ppx ACV and cipro Inflammatory polyarthropathy ([facility]) Leg DVT (deep venous thromboembolism), acute, left ([facility]) 01/02/2018 --acute DVT gastrocnemius found 12/13/2017 --continue apixaban till platelets <50K, last dose 06/21/2018 Low serum vitamin B12 04/22/2021 Lumbar spinal stenosis Medicare annual wellness visit, subsequent 10/06/2021 Medicare part B: Not able to find, Last done: 10/06/2021 Mixed hyperlipidemia 10/31/2006 --will hold atorvastatin d/t interactions with chemotherapy can resume at discharge Multiple myeloma ([facility]) 11/28/2017 Multiple myeloma in remission ([facility]) Obesity 10/01/2012 Osteoarthritis of both hands Pancytopenia due to chemotherapy ([facility]) 06/25/2018 --Transfuse PRBC and platelets per protocol --GCSF Peripheral autonomic neuropathy in disorders classified elsewhere 06/07/2005 Pulmonary hypertension, unspecified ([facility]) 10/23/2019 Reflux esophagitis Spinal stenosis, lumbar region, without neurogenic claudication 11/13/2006 Tobacco abuse 12/27/2011 Quit 2013 Type 2 diabetes mellitus without complication, without long-term current use of insulin ([facility]) 04/12/2018 Venous (peripheral) insufficiency Venous insufficiency, peripheral 01/06/2014 Vitamin D deficiency 12/31/2014 Previous Surgical History PAST SURGICAL HISTORY Procedure Laterality Date ANES ARTHROSCOPIC TOTAL SHOULDER REPLACEMENT Right 01/28/2013 [facility] - complete right shoulder replaceement ARTHRD [...] ulnar nerve decompression TONSILLECTOMY PRIMARY/SECONDARY AGE 13/> 1986 Tonsillectomy Family History FAMILY HISTORY Problem Relation [...] ORTHOPAEDICS Leslye Winter PA-C documented in this encounterChildren'S Hospital For Rehabilitation06-30-2022 Miscellaneous Notes* Telephone Encounter - Ela Alvarez [...] patient. Yesenia Quiles LPN documented in this encounterChildren'S Hospital For Rehabilitation06-30-2022 Miscellaneous Notes* Telephone Encounter - Shey Liu [...] you. Shey Liu LPN documented in this encounterChildren'S Hospital For Rehabilitation06-29-2022 History of Present illness Narrative* Nargis Ortega [...] like to speak with a social work produce production team member to help give you support for any [...] you up for automated weekly questionnaires through [employer]. This is an easy way for us [...] PtOutreach and End outreach. documented in this encounterChildren'S Hospital For Rehabilitation05-20-2022 Miscellaneous Notes* Telephone Encounter - Marina Tilley RN - 02/04/2022 2:44 PM EDT Patient notified of provider's message below. Patient verbalizes understanding. Marina Tilley RN * Telephone Encounter - Esvin Marcus - 02/04/2022 2:34 PM EDT Please call patient to inform him that I typically prescribe for three months and then it is wait and see if this helps Esvin Marcus DPM * Telephone Encounter - Shey Amador - 01/17/2022 11:55 AM EDT Patient electronically requesting refills as follows: Pending Prescriptions Disp Refills TERBINAFINE HCL 250 MG TABLET 30 tablet 2 Sig: Take 1 tablet by mouth once daily. WILFREDO: No Please review and advise. Shey Amador documented in this encounterChildren'S Hospital For Rehabilitation05-12-2022 Miscellaneous Notes* Telephone Encounter - Loretta Leon PA-C - 01/27/2022 9:35 AM EDT Spoke to patient and advised him to start Probiotic. He states diarrhea is improving with stopping Augmentin. Will switch to Azithromycin. If patient, experiences increase in diarrhea advised to stop immediately. Loretta Leon PA-C documented in this encounterChildren'S Hospital For Rehabilitation05-09-2022 History of Present illness Narrative* Nargis Ortega [...] like to speak with a social work produce production team member to help give you support for any [...] you up for automated weekly questionnaires through [employer]. This is an easy way for us [...] RN - 01/24/2022 9:11 AM EDT INSIGHT CD TELEPHONIC OUTREACH Provider Action/FYI: Contact made with patient: No - Left message Heljosette my name is Nargis Ortega RN your Front Desk Host from [facility] I am calling today for your bi-weekly check in. I am sorry I missed your call. I will reach out to you again tomorrow. (if the third call I will reach out to you again next week) Enter next patient outreach date for the following business day using the Track Pt Outreach. End outreach. documented in this encounterChildren'S Hospital For Rehabilitation05-05-2022 History of Present illness Narrative* Loretta Leon PA-C - 01/20/2022 9:04 AM EDT [facility] Res[facility] [place], 01/20/2022: Name: Ronnie Yarbrough : 1950 The [...] having a cold in November. Was in [place] for a mission trip and woke up [...] answers. Loretta Leon PA-C documented in this encounterChildren'S Hospital For Rehabilitation04-21-2022 Miscellaneous Notes* Telephone Encounter - Ovidio Vincent [...] advise. Madison Hyde LPN documented in this encounterChildren'S Hospital For Rehabilitation04-11-2022 History of Present illness Narrative* Nargis Ortega [...] like to speak with a social work produce production team member to help give you support for any [...] you up for automated weekly questionnaires through [employer]. This is an easy way for us [...] PtOutreach and End outreach. documented in this encounterChildren'S Hospital For Rehabilitation02-05-2020 History of Past illness Narrative* Problem Noted [...] dose of 40mg daily. Annie Corrales, RN HIGH SCHOOL LEARNING SUPPORT TEACHER.WASTEWATER DESIGN ENGINEER Acute on chronic systolic CHF (congestive heart [...] of this encounter (statuses as of 12/27/2021) [facility] History of Past illness Narrative* Problem Noted [...] dose of 40mg daily. Annie Corrales RN HIGH SCHOOL LEARNING SUPPORT TEACHER.WASTEWATER DESIGN ENGINEER Acute on chronic systolic CHF (congestive heart [...] of this encounter (statuses as of 01/06/2022) [facility] History of Past illness Narrative* Problem Noted [...] dose of 40mg daily. Annie Corrales RN HIGH SCHOOL LEARNING SUPPORT TEACHER.WASTEWATER DESIGN ENGINEER Acute on chronic systolic CHF (congestive heart [...] of this encounter (statuses as of 01/20/2022) [facility] History of Past illness Narrative* Problem Noted [...] dose of 40mg daily. Annie Corrales RN HIGH SCHOOL LEARNING SUPPORT TEACHER.WASTEWATER DESIGN ENGINEER Acute on chronic systolic CHF (congestive heart [...] of this encounter (statuses as of 01/24/2022) [facility] History of Past illness Narrative* Problem Noted [...] dose of 40mg daily. Annie Corrales, RN HIGH SCHOOL LEARNING SUPPORT TEACHER.WASTEWATER DESIGN ENGINEER Acute on chronic systolic CHF (congestive heart [...] of this encounter (statuses as of 01/27/2022) [facility] History of Past illness Narrative* Problem Noted [...] 12.5, on discharge arrange f/u with Dr. Rsoenbaum's office for electrolyte monitoring Can stop carvedilol given no indication (ischemia ruled out, and HFrEF ruled out) - Would not continue imdur on discharge given no indication - Lisinopril can be restarted as an outpatient as needed for HTN if renal function is stable Dr. Mcpherson recommends to resume home dose of 40mg daily. Annie Corrales RN HIGH SCHOOL LEARNING SUPPORT TEACHER.WASTEWATER DESIGN ENGINEER Acute on chronic systolic CHF (congestive heart [...] of this encounter (statuses as of 02/04/2022) [facility] of Past illness Narrative* Problem Noted [...] dose of 40mg daily. Annie Corrales RN HIGH SCHOOL LEARNING SUPPORT TEACHER.WASTEWATER DESIGN ENGINEER Acute on chronic systolic CHF (congestive heart [...] of this encounter (statuses as of 02/10/2022) [facility] of Past illness Narrative* Problem Noted [...] dose of 40mg daily. Annie Corrales, RN HIGH SCHOOL LEARNING SUPPORT TEACHER.WASTEWATER DESIGN ENGINEER Acute on chronic systolic CHF (congestive heart [...] of this encounter (statuses as of 03/16/2022) [facility] of Past illness Narrative* Problem Noted [...] dose of 40mg daily. Annie Corrales RN HIGH SCHOOL LEARNING SUPPORT TEACHER.WASTEWATER DESIGN ENGINEER Acute on chronic systolic CHF (congestive heart [...] of this encounter (statuses as of 03/17/2022) [facility] of Past illness Narrative* Problem Noted [...] dose of 40mg daily. Annie Corrales RN HIGH SCHOOL LEARNING SUPPORT TEACHER.WASTEWATER DESIGN ENGINEER Acute on chronic systolic CHF (congestive heart [...] of this encounter (statuses as of 03/17/2022) [facility] of Past illness Narrative* Problem Noted [...] dose of 40mg daily. Annie Corrales RN HIGH SCHOOL LEARNING SUPPORT TEACHER.WASTEWATER DESIGN ENGINEER Acute on chronic systolic CHF (congestive heart [...] of this encounter (statuses as of 03/22/2022) [facility] of Past illness Narrative* Problem Noted [...] dose of 40mg daily. Annie Corrales RN HIGH SCHOOL LEARNING SUPPORT TEACHER.WASTEWATER DESIGN ENGINEER Acute on chronic systolic CHF (congestive heart [...] of this encounter (statuses as of 03/28/2022) [facility] of Past illness Narrative* Problem Noted [...] dose of 40mg daily. Annie Corrales RN HIGH SCHOOL LEARNING SUPPORT TEACHER.WASTEWATER DESIGN ENGINEER Acute on chronic systolic CHF (congestive heart [...] of this encounter (statuses as of 04/01/2022) [facility] of Past illness Narrative* Problem Noted [...] dose of 40mg daily. Annie Corrales RN HIGH SCHOOL LEARNING SUPPORT TEACHER.WASTEWATER DESIGN ENGINEER Acute on chronic systolic CHF (congestive heart [...] of this encounter (statuses as of 04/05/2022) [facility] of Past illness Narrative* Problem Noted [...] dose of 40mg daily. Annie Corrales RN HIGH SCHOOL LEARNING SUPPORT TEACHER.WASTEWATER DESIGN ENGINEER Acute on chronic systolic CHF (congestive heart failure) 10/04/2019 11/25/2019 Fall 07/17/2018 11/25/2019 Difficulty coping 06/20/2018 06/26/2018 Overview: --social work following for supportive counseling --Zyprexa added for recent depressed mood --mood has improved, gabapentin was DC'd as well daughter recalled patient taking this in the past and having severe depression and suicidal ideation (added to allergies) Hyperkalemia 06/18/2018 2018 Overview: K 5.2, april galdamez/c lisinopril Chemotherapy induced nausea and vomiting 018 [...] of this encounter (statuses as of 04/07/2022) [facility] of Past illness Narrative* Problem Noted [...] dose of 40mg daily. Annie Corrales, ALICIA HIGH SCHOOL LEARNING SUPPORT TEACHER.WASTEWATER DESIGN ENGINEER Acute on chronic systolic CHF (congestive heart [...] of this encounter (statuses as of 04/11/2022) [facility] of Past illness Narrative* Problem Noted [...] dose of 40mg daily. Annie Corrales, RN HIGH SCHOOL LEARNING SUPPORT TEACHER.WASTEWATER DESIGN ENGINEER Acute on chronic systolic CHF (congestive heart [...] of this encounter (statuses as of 04/18/2022) [facility] of Past illness Narrative* Problem Noted [...] of 40mg daily. Annie I Corrales, RN HIGH SCHOOL LEARNING SUPPORT TEACHER.WASTEWATER DESIGN ENGINEER Acute on chronic systolic CHF (congestive heart [...] of this encounter (statuses as of 04/19/2022) [facility] of Past illness Narrative* Problem Noted [...] dose of 40mg daily. Annie Corrales RN HIGH SCHOOL LEARNING SUPPORT TEACHER.WASTEWATER DESIGN ENGINEER Acute on chronic systolic CHF (congestive heart [...] of this encounter (statuses as of 04/19/2022) [facility] of Past illness Narrative* Problem Noted [...] to resume home dose of 40mg daily. Anine Corrales, RN HIGH SCHOOL LEARNING SUPPORT TEACHER.WASTEWATER DESIGN ENGINEER Acute on chronic systolic CHF (congestive heart [...] of this encounter (statuses as of 04/25/2022) [facility] of Past illness Narrative* Problem Noted [...] dose of 40mg daily. Annie Corrales, RN HIGH SCHOOL LEARNING SUPPORT TEACHER.WASTEWATER DESIGN ENGINEER Acute on chronic systolic CHF (congestive heart [...] of this encounter (statuses as of 04/26/2022) [facility] of Past illness Narrative* Problem Noted [...] dose of 40mg daily. Annie Corrales, RN HIGH SCHOOL LEARNING SUPPORT TEACHER.WASTEWATER DESIGN ENGINEER Acute on chronic systolic CHF (congestive heart [...] of this encounter (statuses as of 04/27/2022) [facility] of Past illness Narrative* Problem Noted [...] dose of 40mg daily. Annie Corrales RN HIGH SCHOOL LEARNING SUPPORT TEACHER.WASTEWATER DESIGN ENGINEER Acute on chronic systolic CHF (congestive heart [...] of this encounter (statuses as of 05/02/2022) [facility] [facility] History of Past illness Narrative* Problem Noted [...] dose of 40mg daily. Annie Corrales, RN [employer]IGH SCHOOL LEARNING SUPPORT TEACHER.WASTEWATER DESIGN ENGINEER Acute on chronic systolic CHF (congestive heart [...] of this encounter (statuses as of 05/11/2022) [facility] History of Past illness Narrative* Problem Noted [...] dose of 40mg daily. Annie Corrales, RN HIGH SCHOOL LEARNING SUPPORT TEACHER.WASTEWATER DESIGN ENGINEER Acute on chronic systolic CHF (congestive heart [...] of this encounter (statuses as of 05/25/2022) [facility] History of Past illness Narrative* Problem Noted [...] dose of 40mg daily. Annie Corrales, RN HIGH SCHOOL LEARNING SUPPORT TEACHER.WASTEWATER DESIGN ENGINEER Acute on chronic systolic CHF (congestive heart [...] of this encounter (statuses as of 05/31/2022) [facility] History of Past illness Narrative* Problem Noted [...] dose of 40mg daily. Annie Corrales RN HIGH SCHOOL LEARNING SUPPORT TEACHER.WASTEWATER DESIGN ENGINEER Acute on chronic systolic CHF (congestive heart [...] of this encounter (statuses as of 06/02/2022) [facility] History of Past illness Narrative* Problem Noted [...] dose of 40mg daily. Annie Corrales RN HIGH SCHOOL LEARNING SUPPORT TEACHER.WASTEWATER DESIGN ENGINEER Acute on chronic systolic CHF (congestive heart [...] of this encounter (statuses as of 06/08/2022) [facility] History of Past illness Narrative* Problem Noted [...] dose of 40mg daily. Annie Corrales RN HIGH SCHOOL LEARNING SUPPORT TEACHER.WASTEWATER DESIGN ENGINEER Acute on chronic systolic CHF (congestive heart [...] of this encounter (statuses as of 06/10/2022) [facility] History of Past illness Narrative* Problem Noted [...] dose of 40mg daily. Annie Corrales, RN HIGH SCHOOL LEARNING SUPPORT TEACHER.WASTEWATER DESIGN ENGINEER Acute on chronic systolic CHF (congestive heart [...] of this encounter (statuses as of 06/20/2022) [facility] History of Past illness Narrative* Problem Noted [...] dose of 40mg daily. Annie Corrales RN HIGH SCHOOL LEARNING SUPPORT TEACHER.WASTEWATER DESIGN ENGINEER Acute on chronic systolic CHF (congestive heart [...] of this encounter (statuses as of 06/28/2022) [facility] History of Past illness Narrative* Problem Noted [...] dose of 40mg daily. Annie Corrales RN HIGH SCHOOL LEARNING SUPPORT TEACHER.WASTEWATER DESIGN ENGINEER Acute on chronic systolic CHF (congestive heart [...] of this encounter (statuses as of 06/29/2022) [facility] History of Past illness Narrative* Problem Noted [...] dose of 40mg daily. Annie Corrales, RN HIGH SCHOOL LEARNING SUPPORT TEACHER.WASTEWATER DESIGN ENGINEER Acute on chronic systolic CHF (congestive heart [...] of this encounter (statuses as of 07/04/2022) [facility] History of Past illness Narrative* Problem Noted [...] dose of 40mg daily. Annie Corrales RN HIGH SCHOOL LEARNING SUPPORT TEACHER.WASTEWATER DESIGN ENGINEER Acute on chronic systolic CHF (congestive heart [...] of this encounter (statuses as of 07/04/2022) [facility] History of Past illness Narrative* Problem Noted [...] dose of 40mg daily. Annie Corrales RN HIGH SCHOOL LEARNING SUPPORT TEACHER.WASTEWATER DESIGN ENGINEER Acute on chronic systolic CHF (congestive heart [...] of this encounter (statuses as of 07/04/2022) [facility] History of Past illness Narrative* Problem Noted [...] dose of 40mg daily. Annie Corrales RN HIGH SCHOOL LEARNING SUPPORT TEACHER.WASTEWATER DESIGN ENGINEER Acute on chronic systolic CHF (congestive heart [...] of this encounter (statuses as of 07/28/2022) [facility] History of Past illness Narrative* Problem Noted [...] dose of 40mg daily. Annie Corrales RN HIGH SCHOOL LEARNING SUPPORT TEACHER.WASTEWATER DESIGN ENGINEER Acute on chronic systolic CHF (congestive heart [...] of this encounter (statuses as of 08/08/2022) [facility] History of Past illness Narrative* Problem Noted [...] dose of 40mg daily. Annie Corrales RN HIGH SCHOOL LEARNING SUPPORT TEACHER.WASTEWATER DESIGN ENGINEER Acute on chronic systolic CHF (congestive heart [...] of this encounter (statuses as of 08/23/2022) [facility] History of Past illness Narrative* Problem Noted [...] dose of 40mg daily. Annie Corrales RN HIGH SCHOOL LEARNING SUPPORT TEACHER.WASTEWATER DESIGN ENGINEER Acute on chronic systolic CHF (congestive heart [...] of this encounter (statuses as of 08/24/2022) [facility] History of Past illness Narrative* Problem Noted [...] dose of 40mg daily. Annie Corrales RN HIGH SCHOOL LEARNING SUPPORT TEACHER.WASTEWATER DESIGN ENGINEER Acute on chronic systolic CHF (congestive heart failure) 10/04/2019 11/25/2019 Fall 07/17/2018 11/25/2019 Difficulty coping 06/20/2018 06/26/2018 Overview: --social work following for supportive counseling --Zyprexa added for recent depressed mood --mood has improved, gabapentin was DC'd as well daughter recalled patient taking this in the past and having severe depression and suicidal ideation (added to allergies) Hyperkalemia 06/18/2018 2018 Overview: K 5.2, april galdamez/c lisinopril Chemotherapy induced nausea and vomiting 018 [...] of this encounter (statuses as of 08/29/2022) [facility] History of Past illness Narrative* Problem Noted [...] dose of 40mg daily. Annie Corrales, ALICIA HIGH SCHOOL LEARNING SUPPORT TEACHER.WASTEWATER DESIGN ENGINEER Acute on chronic systolic CHF (congestive heart [...] of this encounter (statuses as of 08/29/2022) [facility] History of Past illness Narrative* Problem Noted [...] dose of 40mg daily. Annie Corrales, RN HIGH SCHOOL LEARNING SUPPORT TEACHER.WASTEWATER DESIGN ENGINEER Acute on chronic systolic CHF (congestive heart [...] of this encounter (statuses as of 08/30/2022) [facility] History of Past illness Narrative* Problem Noted [...] of 40mg daily. Annie I Corrales, RN HIGH SCHOOL LEARNING SUPPORT TEACHER.WASTEWATER DESIGN ENGINEER Acute on chronic systolic CHF (congestive heart [...] of this encounter (statuses as of 09/05/2022) [facility] History of Past illness Narrative* Problem Noted [...] dose of 40mg daily. Annie Corrales RN HIGH SCHOOL LEARNING SUPPORT TEACHER.WASTEWATER DESIGN ENGINEER Acute on chronic systolic CHF (congestive heart [...] of this encounter (statuses as of 09/05/2022) [facility] History of Past illness Narrative* Problem Noted [...] dose of 40mg daily. Annie Corrales, RN HIGH SCHOOL LEARNING SUPPORT TEACHER.WASTEWATER DESIGN ENGINEER Acute on chronic systolic CHF (congestive heart [...] of this encounter (statuses as of 09/05/2022) [facility] History of Past illness Narrative* Problem Noted [...] dose of 40mg daily. Annie Corrales, RN HIGH SCHOOL LEARNING SUPPORT TEACHER.WASTEWATER DESIGN ENGINEER Acute on chronic systolic CHF (congestive heart [...] of this encounter (statuses as of 09/18/2022) [facility] History of Past illness Narrative* Problem Noted [...] dose of 40mg daily. Annie Corrales, RN HIGH SCHOOL LEARNING SUPPORT TEACHER.WASTEWATER DESIGN ENGINEER Acute on chronic systolic CHF (congestive heart [...] of this encounter (statuses as of 09/22/2022) [facility] History of Past illness Narrative* Problem Noted [...] dose of 40mg daily. Annie Corrales RN HIGH SCHOOL LEARNING SUPPORT TEACHER.WASTEWATER DESIGN ENGINEER Acute on chronic systolic CHF (congestive heart [...] of this encounter (statuses as of 09/23/2022) [facility] History of Past illness Narrative* Problem Noted [...] dose of 40mg daily. Annie Corrales, RN HIGH SCHOOL LEARNING SUPPORT TEACHER.WASTEWATER DESIGN ENGINEER Acute on chronic systolic CHF (congestive heart [...] of this encounter (statuses as of 09/30/2022) [facility] History of Past illness Narrative* Problem Noted [...] dose of 40mg daily. Annie Corrales, RN HIGH SCHOOL LEARNING SUPPORT TEACHER.WASTEWATER DESIGN ENGINEER Acute on chronic systolic CHF (congestive heart [...] of this encounter (statuses as of 09/30/2022) [facility] History of Past illness Narrative* Problem Noted [...] dose of 40mg daily. Annie Corrales, RN HIGH SCHOOL LEARNING SUPPORT TEACHER.WASTEWATER DESIGN ENGINEER Acute on chronic systolic CHF (congestive heart [...] of this encounter (statuses as of 10/01/2022) [facility] History of Past illness Narrative* Problem Noted [...] dose of 40mg daily. Annie Corrales RN HIGH SCHOOL LEARNING SUPPORT TEACHER.WASTEWATER DESIGN ENGINEER Acute on chronic systolic CHF (congestive heart [...] Overview: --compazine, Ativan and zofran prn. JOSE ENRIQEU (acute kidney injury) 06/16/20182017 Overview: Acute increase [...] of this encounter (statuses as of 10/06/2022) [facility] History of Past illness Narrative* Problem Noted [...] dose of 40mg daily. Annie Corrales RN HIGH SCHOOL LEARNING SUPPORT TEACHER.WASTEWATER DESIGN ENGINEER Acute on chronic systolic CHF (congestive heart [...] of this encounter (statuses as of 10/13/2022) [facility] History of Past illness Narrative* Problem Noted [...] dose of 40mg daily. Annie Corrales RN HIGH SCHOOL LEARNING SUPPORT TEACHER.WASTEWATER DESIGN ENGINEER Acute on chronic systolic CHF (congestive heart [...] of this encounter (statuses as of 10/13/2022) [facility] History of Past illness Narrative* Problem Noted [...] dose of 40mg daily. Annie Corrales, RN HIGH SCHOOL LEARNING SUPPORT TEACHER.WASTEWATER DESIGN ENGINEER Acute on chronic systolic CHF (congestive heart [...] of this encounter (statuses as of 10/22/2022) [facility] History of Past illness Narrative* Problem Noted [...] dose of 40mg daily. Annie Corrales RN HIGH SCHOOL LEARNING SUPPORT TEACHER.WASTEWATER DESIGN ENGINEER Acute on chronic systolic CHF (congestive heart [...] of this encounter (statuses as of 10/24/2022) [facility] History of Past illness Narrative* Problem Noted [...] dose of 40mg daily. Annie Corrales RN HIGH SCHOOL LEARNING SUPPORT TEACHER.WASTEWATER DESIGN ENGINEER Acute on chronic systolic CHF (congestive heart [...] of this encounter (statuses as of 10/28/2022) [facility] History of Past illness Narrative* Problem Noted [...] dose of 40mg daily. Annie Corrales, RN HIGH SCHOOL LEARNING SUPPORT TEACHER.WASTEWATER DESIGN ENGINEER Acute on chronic systolic CHF (congestive heart [...] of this encounter (statuses as of 10/28/2022) [facility] History of Past illness Narrative* Problem Noted [...] dose of 40mg daily. Annie Corrales RN HIGH SCHOOL LEARNING SUPPORT TEACHER.WASTEWATER DESIGN ENGINEER Acute on chronic systolic CHF (congestive heart [...] of this encounter (statuses as of 11/03/2022) [facility] History of Past illness Narrative* Problem Noted [...] dose of 40mg daily. Annie Corrales RN HIGH SCHOOL LEARNING SUPPORT TEACHER.WASTEWATER DESIGN ENGINEER Acute on chronic systolic CHF (congestive heart [...] of this encounter (statuses as of 11/08/2022) [facility] History of Past illness Narrative* Problem Noted [...] dose of 40mg daily. Annie Corrales RN HIGH SCHOOL LEARNING SUPPORT TEACHER.WASTEWATER DESIGN ENGINEER Acute on chronic systolic CHF (congestive heart [...] of this encounter (statuses as of 11/08/2022) [facility] History of Past illness Narrative* Problem Noted [...] dose of 40mg daily. Annie Corrales RN HIGH SCHOOL LEARNING SUPPORT TEACHER.WASTEWATER DESIGN ENGINEER Acute on chronic systolic CHF (congestive heart [...] of this encounter (statuses as of 11/25/2022) [facility] History of Past illness Narrative* Problem Noted [...] dose of 40mg daily. Annie Corrales RN HIGH SCHOOL LEARNING SUPPORT TEACHER.WASTEWATER DESIGN ENGINEER Acute on chronic systolic CHF (congestive heart [...] of this encounter (statuses as of 11/30/2022) [facility] History of Past illness Narrative* Problem Noted [...] dose of 40mg daily. Annie Corrales RN HIGH SCHOOL LEARNING SUPPORT TEACHER.WASTEWATER DESIGN ENGINEER Acute on chronic systolic CHF (congestive heart [...] of this encounter (statuses as of 12/19/2022) [facility] History of Past illness Narrative* Problem Noted [...] dose of 40mg daily. Annie Corrales RN HIGH SCHOOL LEARNING SUPPORT TEACHER.WASTEWATER DESIGN ENGINEER Acute on chronic systolic CHF (congestive heart [...] of this encounter (statuses as of 12/20/2022) [facility] History of Past illness Narrative* Problem Noted [...] dose of 40mg daily. Annie Corrales RN HIGH SCHOOL LEARNING SUPPORT TEACHER.WASTEWATER DESIGN ENGINEER Acute on chronic systolic CHF (congestive heart [...] of this encounter (statuses as of 12/21/2022) [facility] History of Past illness Narrative* Problem Noted [...] dose of 40mg daily. Annie Corrales, RN HIGH SCHOOL LEARNING SUPPORT TEACHER.WASTEWATER DESIGN ENGINEER Acute on chronic systolic CHF (congestive heart [...] of this encounter (statuses as of 12/24/2022) [facility] History of Past illness Narrative* Problem Noted [...] dose of 40mg daily. Annie Corrales RN HIGH SCHOOL LEARNING SUPPORT TEACHER.WASTEWATER DESIGN ENGINEER Acute on chronic systolic CHF (congestive heart [...] of this encounter (statuses as of 01/09/2023) [facility] History of Past illness Narrative* Problem Noted [...] dose of 40mg daily. Annie Corrales RN HIGH SCHOOL LEARNING SUPPORT TEACHER.WASTEWATER DESIGN ENGINEER Acute on chronic systolic CHF (congestive heart [...] of this encounter (statuses as of 01/13/2023) [facility] History of Past illness Narrative* Problem Noted [...] dose of 40mg daily. Annie Corrales RN HIGH SCHOOL LEARNING SUPPORT TEACHER.WASTEWATER DESIGN ENGINEER Acute on chronic systolic CHF (congestive heart [...] of this encounter (statuses as of 01/18/2023) [facility] History of Past illness Narrative* Problem Noted [...] dose of 40mg daily. Annie Corrales, RN HIGH SCHOOL LEARNING SUPPORT TEACHER.WASTEWATER DESIGN ENGINEER Acute on chronic systolic CHF (congestive heart [...] of this encounter (statuses as of 01/25/2023) [facility] History of Past illness Narrative* Problem Noted [...] HTN if renal function is stable Dr. Mcphesron recommends to resume home dose of 40mg daily. Annie Corrales, RN HIGH SCHOOL LEARNING SUPPORT TEACHER.WASTEWATER DESIGN ENGINEER Acute on chronic systolic CHF (congestive heart [...] of this encounter (statuses as of 02/14/2023) [facility] History of Past illness Narrative* Problem Noted [...] dose of 40mg daily. Annie Corrales, RN HIGH SCHOOL LEARNING SUPPORT TEACHER.WASTEWATER DESIGN ENGINEER Acute on chronic systolic CHF (congestive heart [...] of this encounter (statuses as of 02/16/2023) [facility] History of Past illness Narrative* Problem Noted [...] dose of 40mg daily. Annie Corrales, RN HIGH SCHOOL LEARNING SUPPORT TEACHER.WASTEWATER DESIGN ENGINEER Acute on chronic systolic CHF (congestive heart [...] of this encounter (statuses as of 02/18/2023) [facility] History of Past illness Narrative* Problem Noted [...] dose of 40mg daily. Annie Corrales, RN HIGH SCHOOL LEARNING SUPPORT TEACHER.WASTEWATER DESIGN ENGINEER Acute on chronic systolic CHF (congestive heart [...] of this encounter (statuses as of 02/19/2023) [facility] History of Past illness Narrative* Problem Noted [...] dose of 40mg daily. Annie Corrales RN HIGH SCHOOL LEARNING SUPPORT TEACHER.WASTEWATER DESIGN ENGINEER Acute on chronic systolic CHF (congestive heart [...] of this encounter (statuses as of 02/23/2023) [facility] History of Past illness Narrative* Problem Noted [...] dose of 40mg daily. Annie Corrales, RN HIGH SCHOOL LEARNING SUPPORT TEACHER.WASTEWATER DESIGN ENGINEER Acute on chronic systolic CHF (congestive heart [...] of this encounter (statuses as of 03/03/2023) [facility] History of Past illness Narrative* Problem Noted [...] dose of 40mg daily. Annie Corrales, RN HIGH SCHOOL LEARNING SUPPORT TEACHER.WASTEWATER DESIGN ENGINEER Acute on chronic systolic CHF (congestive heart [...] of this encounter (statuses as of 03/07/2023) [facility] History of Past illness Narrative* Problem Noted [...] dose of 40mg daily. Annie Corrales RN HIGH SCHOOL LEARNING SUPPORT TEACHER.WASTEWATER DESIGN ENGINEER Acute on chronic systolic CHF (congestive heart [...] of this encounter (statuses as of 03/13/2023) [facility] History of Past illness Narrative* Problem Noted [...] dose of 40mg daily. Annie Corrales RN HIGH SCHOOL LEARNING SUPPORT TEACHER.WASTEWATER DESIGN ENGINEER Acute on chronic systolic CHF (congestive heart [...] of this encounter (statuses as of 03/20/2023) [facility] History of Past illness Narrative* Problem Noted [...] dose of 40mg daily. Annie Corrales RN HIGH SCHOOL LEARNING SUPPORT TEACHER.WASTEWATER DESIGN ENGINEER Acute on chronic systolic CHF (congestive heart [...] of this encounter (statuses as of 03/23/2023) [facility] History of Past illness Narrative* Problem Noted [...] dose of 40mg daily. Annie Corrales, RN HIGH SCHOOL LEARNING SUPPORT TEACHER.WASTEWATER DESIGN ENGINEER Acute on chronic systolic CHF (congestive heart [...] of this encounter (statuses as of 03/23/2023) [facility] History of Past illness Narrative* Problem Noted [...] dose of 40mg daily. Annie Corrales RN HIGH SCHOOL LEARNING SUPPORT TEACHER.WASTEWATER DESIGN ENGINEER Acute on chronic systolic CHF (congestive heart [...] of this encounter (statuses as of 03/24/2023) [facility] History of Past illness Narrative* Problem Noted [...] dose of 40mg daily. Annie Corrales, RN HIGH SCHOOL LEARNING SUPPORT TEACHER.WASTEWATER DESIGN ENGINEER Acute on chronic systolic CH F (congestive [...] of this encounter (statuses as of 03/30/2023) [facility] History of Past illness Narrative* Problem Noted [...] dose of 40mg daily. Annie Corrales, RN HIGH SCHOOL LEARNING SUPPORT TEACHER.WASTEWATER DESIGN ENGINEER Acute on chronic systolic CH F (congestive [...] of this encounter (statuses as of 03/31/2023) [facility] History of Past illness Narrative* Problem Noted [...] dose of 40mg daily. Annie Corrales, RN HIGH SCHOOL LEARNING SUPPORT TEACHER.WASTEWATER DESIGN ENGINEER Acute on chronic systolic CH F (congestive [...] of this encounter (statuses as of 04/01/2023) [facility] History of Past illness Narrative* Problem Noted [...] dose of 40mg daily. Annie Corrales RN HIGH SCHOOL LEARNING SUPPORT TEACHER.WASTEWATER DESIGN ENGINEER Acute on chronic systolic CH F (congestive [...] of this encounter (statuses as of 04/02/2023) [facility] History of Past illness Narrative* Problem Noted [...] dose of 40mg daily. Annie Corrales RN HIGH SCHOOL LEARNING SUPPORT TEACHER.WASTEWATER DESIGN ENGINEER Acute on chronic systolic CH F (congestive [...] of this encounter (statuses as of 04/03/2023) [facility] History of Past illness Narrative* Problem Noted [...] dose of 40mg daily. Annie Corrales, RN HIGH SCHOOL LEARNING SUPPORT TEACHER.WASTEWATER DESIGN ENGINEER Acute on chronic systolic CH F (congestive [...] of this encounter (statuses as of 04/06/2023) [facility] History of Past illness Narrative* Problem Noted [...] dose of 40mg daily. Annie Corrales, RN HIGH SCHOOL LEARNING SUPPORT TEACHER.WASTEWATER DESIGN ENGINEER Acute on chronic systolic CH F (congestive [...] of this encounter (statuses as of 04/13/2023) [facility] History of Past illness Narrative* Problem Noted [...] dose of 40mg daily. Annie Corrales RN HIGH SCHOOL LEARNING SUPPORT TEACHER.WASTEWATER DESIGN ENGINEER Acute on chronic systolic CH F (congestive [...] of this encounter (statuses as of 04/19/2023) [facility] History of Past illness Narrative* Problem Noted [...] dose of 40mg daily. Annie Corrales, RN HIGH SCHOOL LEARNING SUPPORT TEACHER.WASTEWATER DESIGN ENGINEER Acute on chronic systolic CH F (congestive [...] of this encounter (statuses as of 04/21/2023) [facility] History of Past illness Narrative* Problem Noted [...] dose of 40mg daily. Annie Corrales, RN HIGH SCHOOL LEARNING SUPPORT TEACHER.WASTEWATER DESIGN ENGINEER Acute on chronic systolic CH F (congestive [...] of this encounter (statuses as of 05/01/2023) [facility] History of Past illness Narrative* Problem Noted [...] dose of 40mg daily. Annie Corrales, RN HIGH SCHOOL LEARNING SUPPORT TEACHER.WASTEWATER DESIGN ENGINEER Acute on chronic systolic CH F (congestive [...] of this encounter (statuses as of 05/03/2023) [facility] History of Past illness Narrative* Problem Noted [...] dose of 40mg daily. Annie Corrales RN HIGH SCHOOL LEARNING SUPPORT TEACHER.WASTEWATER DESIGN ENGINEER Acute on chronic systolic CH F (congestive [...] of this encounter (statuses as of 05/18/2023) [facility] History of Past illness Narrative* Problem Noted [...] dose of 40mg daily. Annie Corrales, RN HIGH SCHOOL LEARNING SUPPORT TEACHER.WASTEWATER DESIGN ENGINEER Acute on chronic systolic CH F (congestive [...] of this encounter (statuses as of 05/19/2023) [facility] History of Past illness Narrative* Problem Noted [...] dose of 40mg daily. Annie Corrales, RN HIGH SCHOOL LEARNING SUPPORT TEACHER.WASTEWATER DESIGN ENGINEER Acute on chronic systolic CH F (congestive [...] of this encounter (statuses as of 05/22/2023) [facility] History of Past illness Narrative* Problem Noted [...] dose of 40mg daily. Annie Corrales RN [employer] SCHOOL LEARNING SUPPORT TEACHER.WASTEWATER DESIGN ENGINEER Acute on chronic systolic CH F (congestive [...] of this encounter (statuses as of 05/25/2023) [facility] History of Past illness Narrative* Problem Noted [...] dose of 40mg daily. Annie Corrales RN [employer] SCHOOL LEARNING SUPPORT TEACHER.WASTEWATER DESIGN ENGINEER Acute on chronic systolic CH F (congestive [...] of this encounter (statuses as of 05/26/2023) [facility] History of Past illness Narrative* Problem Noted [...] dose of 40mg daily. Annie Corrales, RN HIGH SCHOOL LEARNING SUPPORT TEACHER.WASTEWATER DESIGN ENGINEER Acute on chronic systolic CH F (congestive [...] of this encounter (statuses as of 05/29/2023) [facility] History of Past illness Narrative* Problem Noted [...] dose of 40mg daily. Annie Corrales, RN HIGH SCHOOL LEARNING SUPPORT TEACHER.WASTEWATER DESIGN ENGINEER Acute on chronic systolic CH F (congestive [...] of this encounter (statuses as of 05/29/2023) [facility] History of Past illness Narrative* Problem Noted [...] dose of 40mg daily. Annie Corrales RN HIGH SCHOOL LEARNING SUPPORT TEACHER.WASTEWATER DESIGN ENGINEER Acute on chronic systolic CH F (congestive [...] of this encounter (statuses as of 06/04/2023) [facility] History of Past illness Narrative* Problem Noted [...] dose of 40mg daily. Annie Corrales RN HIGH SCHOOL LEARNING SUPPORT TEACHER.WASTEWATER DESIGN ENGINEER Acute on chronic systolic CH F (congestive [...] of this encounter (statuses as of 06/06/2023) [facility] History of Past illness Narrative* Problem Noted [...] dose of 40mg daily. Annie Corrales RN HIGH SCHOOL LEARNING SUPPORT TEACHER.WASTEWATER DESIGN ENGINEER Acute on chronic systolic CH F (congestive [...] of this encounter (statuses as of 06/12/2023) [facility] History of Past illness Narrative* Problem Noted [...] dose of 40mg daily. Annie Corrales, RN HIGH SCHOOL LEARNING SUPPORT TEACHER.WASTEWATER DESIGN ENGINEER Acute on chronic systolic CH F (congestive [...] of this encounter (statuses as of 06/24/2023) [facility] History of Past illness Narrative* Problem Noted [...] dose of 40mg daily. Annie Corrales RN HIGH SCHOOL LEARNING SUPPORT TEACHER.WASTEWATER DESIGN ENGINEER Acute on chronic systolic CH F (congestive [...] of this encounter (statuses as of 06/27/2023) [facility] History of Past illness Narrative* Problem Noted [...] dose of 40mg daily. Annie Corrales RN HIGH SCHOOL LEARNING SUPPORT TEACHER.WASTEWATER DESIGN ENGINEER Acute on chronic systolic CH F (congestive [...] of this encounter (statuses as of 07/12/2023) [facility] History of Past illness Narrative* Problem Noted [...] HTN if renal function is stable Dr. Mcphersno recommends to resume home dose of 40mg daily. Annie Corrales RN HIGH SCHOOL LEARNING SUPPORT TEACHER.WASTEWATER DESIGN ENGINEER Acute on chronic systolic CH F (congestive [...] of this encounter (statuses as of 07/20/2023) [facility] History of Past illness Narrative* Problem Noted [...] dose of 40mg daily. Annie Corrales RN HIGH SCHOOL LEARNING SUPPORT TEACHER.WASTEWATER DESIGN ENGINEER Acute on chronic systolic CH F (congestive [...] of this encounter (statuses as of 07/23/2023) [facility] History of Past illness Narrative* Problem Noted [...] dose of 40mg daily. Annie Corrales RN HIGH SCHOOL LEARNING SUPPORT TEACHER.WASTEWATER DESIGN ENGINEER Acute on chronic systolic CH F (congestive [...] of this encounter (statuses as of 07/26/2023) [facility] History of Past illness Narrative* Problem Noted [...] dose of 40mg daily. Annie Corrales RN HIGH SCHOOL LEARNING SUPPORT TEACHER.WASTEWATER DESIGN ENGINEER Acute on chronic systolic CH F (congestive [...] of this encounter (statuses as of 07/27/2023) [facility] History of Past illness Narrative* Problem Noted [...] dose of 40mg daily. Annie Corrales RN HIGH SCHOOL LEARNING SUPPORT TEACHER.WASTEWATER DESIGN ENGINEER Acute on chronic systolic CH F (congestive [...] of this encounter (statuses as of 07/27/2023) [facility] History of Past illness Narrative* Problem Noted [...] dose of 40mg daily. Annie Corrales RN HIGH SCHOOL LEARNING SUPPORT TEACHER.WASTEWATER DESIGN ENGINEER Acute on chronic systolic CH F (congestive [...] of this encounter (statuses as of 07/27/2023) [facility] History of Past illness Narrative* Problem Noted [...] dose of 40mg daily. Annie Corrales RN HIGH SCHOOL LEARNING SUPPORT TEACHER.WASTEWATER DESIGN ENGINEER Acute on chronic systolic CH F (congestive [...] of this encounter (statuses as of 08/01/2023) [facility] History of Past illness Narrative* Problem Noted [...] dose of 40mg daily. Annie Corrales RN HIGH SCHOOL LEARNING SUPPORT TEACHER.WASTEWATER DESIGN ENGINEER Acute on chronic systolic CH F (congestive [...] of this encounter (statuses as of 08/01/2023) [facility] History of Past illness Narrative* Problem Noted [...] dose of 40mg daily. Annie Corrales RN HIGH SCHOOL LEARNING SUPPORT TEACHER.WASTEWATER DESIGN ENGINEER Acute on chronic systolic CH F (congestive [...] of this encounter (statuses as of 08/03/2023) [facility] History of Past illness Narrative* Problem Noted [...] dose of 40mg daily. Annie Corrales RN HIGH SCHOOL LEARNING SUPPORT TEACHER.WASTEWATER DESIGN ENGINEER Acute on chronic systolic CH F (congestive [...] of this encounter (statuses as of 08/09/2023) [facility] History of Past illness Narrative* Problem Noted [...] dose of 40mg daily. Annie Corrales RN HIGH SCHOOL LEARNING SUPPORT TEACHER.WASTEWATER DESIGN ENGINEER Acute on chronic systolic CH F (congestive [...] of this encounter (statuses as of 08/19/2023) [facility] History of Past illness Narrative* Problem Noted [...] dose of 40mg daily. Annie Corrales RN HIGH SCHOOL LEARNING SUPPORT TEACHER.WASTEWATER DESIGN ENGINEER Acute on chronic systolic CH F (congestive [...] of this encounter (statuses as of 08/21/2023) [facility] History of Past illness Narrative* Problem Noted [...] dose of 40mg daily. Annie Corrales RN HIGH SCHOOL LEARNING SUPPORT TEACHER.WASTEWATER DESIGN ENGINEER Acute on chronic systolic CH F (congestive [...] of this encounter (statuses as of 09/19/2023) [facility] History of Past illness Narrative* Problem Noted [...] dose of 40mg daily. Annie Corrales RN HIGH SCHOOL LEARNING SUPPORT TEACHER.WASTEWATER DESIGN ENGINEER Acute on chronic systolic CH F (congestive [...] of this encounter (statuses as of 10/27/2023) [facility] History of Past illness Narrative* Problem Noted [...] dose of 40mg daily. Annie Corrales RN HIGH SCHOOL LEARNING SUPPORT TEACHER.WASTEWATER DESIGN ENGINEER Acute on chronic systolic CH F (congestive [...] of this encounter (statuses as of 11/01/2023) [facility] History of Past illness Narrative* Problem Noted [...] dose of 40mg daily. Annie Corrales RN HIGH SCHOOL LEARNING SUPPORT TEACHER.WASTEWATER DESIGN ENGINEER Acute on chronic systolic CH F (congestive [...] of this encounter (statuses as of 11/06/2023) [facility] History of Past illness Narrative* Problem Noted [...] dose of 40mg daily. Annie Corrales RN HIGH SCHOOL LEARNING SUPPORT TEACHER.WASTEWATER DESIGN ENGINEER Acute on chronic systolic CH F (congestive [...] with chroni c obstructive pulmonary disease (COPD) ([facility]) 12/30/2014 7 Venous insufficiency, peripheral 01/06/2014 11/25/2019 Esophagitis, unspecified 09/25/2012 Special screening for malign ant neoplasms, colon 09/06/2012 06/13/2018 Tobacco abuse 12/27/2011 10/01/2012 documented as of this encounter (statuses as of 11/23/2023) [facility] History of Past illness Narrative* Problem Noted [...] dose of 40mg daily. Annie Corrales, RN HIGH SCHOOL LEARNING SUPPORT TEACHER.WASTEWATER DESIGN ENGINEER Acute on chronic systolic CH F (congestive [...] of this encounter (statuses as of 11/27/2023) [facility] History of Past illness Narrative* Problem Noted [...] dose of 40mg daily. Annie Corrales RN HIGH SCHOOL LEARNING SUPPORT TEACHER.WASTEWATER DESIGN ENGINEER Acute on chronic systolic CH F (congestive [...] of this encounter (statuses as of 12/21/2023) [facility] History of Past illness Narrative* Problem Noted [...] dose of 40mg daily. Annie Corrales RN HIGH SCHOOL LEARNING SUPPORT TEACHER.WASTEWATER DESIGN ENGINEER Acute on chronic systolic CH F (congestive [...] of this encounter (statuses as of 12/27/2023) [facility] History of Past illness Narrative* Problem Noted [...] dose of 40mg daily. Annie Corrales, RN HIGH SCHOOL LEARNING SUPPORT TEACHER.WASTEWATER DESIGN ENGINEER Acute on chronic systolic CH F (congestive [...] of this encounter (statuses as of 01/04/2024) [facility] [place] [facility] noteNo assessment information availableWUniversity Hospitals [facility] Work Phone: Evaluation note* Diagnosis 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HCC)- Primary Obstructive chronic bronchitis without exacerbation Cough Non-seasonal allergic rhinitis, unspecified trigger Pulmonary arterial hypertension (HCC) Other chronic pulmonary heart diseases Acute bronchitis, unspecified organism Former smoker Personal history of tobacco use, presenting hazards to health [facility] Diagnosis Cough- Primary [facility] Diagnosis Discoloration and thickening of nails both feet [facility] Diagnosis Discoloration and thickening of nails both feet documented in this encounter 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[facility]) Peripheral stem cells replaced by [...] in remission H/O autologous stem cell transplant ([facility]) Peripheral stem cells replaced by transplant [facility] Swelling of left hand- Primary Ganglion cyst Ganglion, unspecified [facility] Diagnosis Ganglion cyst- Primary Ganglion, unspecified [facility]* Diagnosis Multiple myeloma in remission (HCC) Multiple myeloma in remission 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 [place] [facility] note* Diagnosis Vitamin D deficiency Unspecified vitamin D deficiency Encounter for immunization- Primary Need for other specified prophylactic vaccination against single bacterial disease documented in this encounter [facility] [place] [facility] note* Diagnosis Inflammatory polyarthropathy (HCC)- Primary Unspecified inflammatory polyarthropathy Encounter for immunization Need for other specified prophylactic vaccination against single bacterial disease ED (erectile dysfunction) of organic origin Impotence of organic origin [facility]* Diagnosis Hypomagnesemia Disorders of magnesium metabolism documented in this encounter [facility] [place] [facility] note* Diagnosis Simple chronic bronchitis (HCC)- Primary Simple chronic bronchitis Former cigarette smoker Personal history of tobacco use, presenting hazards to health Post-nasal drip Postnasal drip documented in this encounter [facility] [place] [facility] note* Diagnosis Type 2 diabetes mellitus without complication, without long-term current use of insulin ([facility]) documented in this encounter [facility] [place] [facility]* Diagnosis Type 2 diabetes mellitus without complication, without long-term current use of insulin ([facility]) documented in this encounter [facility] [place] [facility]* Diagnosis Type 2 diabetes mellitus without complication, without long-term current use of insulin ([facility]) documented in this encounter [facility] note* Diagnosis Medicare annual wellness visit, subsequent- Primary Routine general medical examination at a health care facility Type 2 diabetes mellitus without complication, without long-term current use of insulin ([facility]) Diabetic eye exam ([facility]) Type II or unspecified type [...] leg edema Edema [facility]* Diagnosis Multiple myeloma in remission (HCC)- Primary Multiple myeloma in remission H/O autologous stem cell transplant (HCC) Peripheral stem cells replaced by transplant [facility] Diagnosis Multiple myeloma in remission (HCC) Multiple myeloma in remission H/O autologous stem cell transplant (HCC) Peripheral stem cells replaced by transplant [facility] Diagnosis 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HCC)- Primary Obstructive chronic bronchitis without exacerbation Lung nodules Other nonspecific abnormal finding of lung field Former cigarette smoker Personal history of tobacco use, presenting hazards to health [facility] Diagnosis Bilateral leg edema- Primary Edema Essential hypertension Unspecified essential hypertension [facility] Multiple myeloma in remission (HCC)- Primary Multiple myeloma in remission [facility] Bilateral leg edema- Primary Edema [...] vitamin D deficiency [facility] Diagnosis Onset Date Resolution Status Debility acute Diabetes mellitus acute GERD (gastroesophageal reflux disease) acute History of multiple myeloma acute Hyperlipidemia acute Osteoarthritis acute Rheumatoid arthritis acute Thoracic spinal stenosis acu te COPD (chronic obstructive pulmonary disease) [facility] Work Phone: Evaluation note* Diagnosis Onset Date Resolution Status Debility acute Diabetes mellitus acute GERD (gastroesophageal reflux disease) acute History of multiple myeloma acute Hyperlipidemia acute Osteoarthritis acute Rheumatoid arthritis acute COPD (chronic obstructive pulmonary disease) chronic Thoracic spinal stenosis res [facility] Work Phone: Evaluation note* Diagnosis Bilateral leg edema- Primary Edema [facility]* Diagnosis Tobacco abuse Tobacco use disorder [facility]* Diagnosis 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HCC)- Primary Obstructive chronic bronchitis without exacerbation Irregular heart beat Cardiac dysrhythmia, unspecified Lung nodules Other nonspecific abnormal finding of lung field Former cigarette smoker Personal history of tobacco use, presenting hazards to health [facility] Diagnosis Irregular heart beat- Primary Cardiac dysrhythmia, unspecified [facility]* Diagnosis Type 2 diabetes mellitus without [...] stage 3a (HCC) [facility]* Diagnosis Hypomagnesemia Disorders of magnesium metabolism [facility]* Diagnosis Paroxysmal atrial fibrillation (HCC)- Primary Atrial fibrillation [facility]* Diagnosis URI, acute- Primary Acute upper respiratory infections of unspecified site [facility]* Diagnosis Onset Date Resolution Status Abnormal ECG chronic Diabetes mellitus chronic DVT of lower extremity, bilateral chronic Essential hypertension [facility] Work Phone: Evaluation note* Diagnosis Enlarged LA (left atrium) Cardiomegaly Dilated aortic root (HCC) Thoracic aortic ectasia [facility]* Diagnosis Dysfunction of left eustachian tube- Primary Dysfunction of Eustachian tube [facility] Diagnosis COPD with chronic bronchitis- Primary Obstructive chronic bronchitis without exacerbation Lung nodules Other nonspecific abnormal finding of lung field Need for influenza vaccination Need for prophylactic vaccination and inoculation against influenza Former cigarette smoker Personal history of tobacco use, presenting hazards to health documented in this encounter [facility] [place] [facility] note* Diagnosis Ex-smoker Personal history of tobacco use, presenting hazards to health Encounter for abdominal aortic aneurysm (AAA) screening documented in this encounter [facility] note* Diagnosis Hypomagnesemia Disorders of magnesium metabolism documented in this encounter [facility] note* Diagnosis Lung nodules Other nonspecific abnormal finding of lung field documented in this encounter [facility] [place] [facility] note* Diagnosis Pre-op testing- Primary Preoperative examination, unspecified documented in this encounter [facility] note* Diagnosis Diabetic eye exam (HCC) Type II or unspecified type diabetes mellitus without mention of complication, not stated as uncontrolled documented in this encounter [facility] note* Diagnosis Hypomagnesemia Disorders of magnesium metabolism Hypomagnesemia- Primary Disorders of magnesium metabolism documented in this encounter [facility] note* Diagnosis COPD with chronic bronchitis- Primary Obstructive chronic bronchitis without exacerbation Former cigarette smoker Personal history of tobacco use, presenting hazards to health Lung nodules Other nonspecific abnormal finding of lung field Irregular heart beat Cardiac dysrhythmia, unspecified Morbid (severe) obesity due to excess calories (HCC) Hypomagnesemia- Primary Disorders of magnesium metabolism documented in this encounter [facility] note* Diagnosis Encounter for screening for lung cancer- Primary Former cigarette smoker Personal history of tobacco use, presenting hazards to health documented in this encounter [facility] note* Diagnosis Pre-op examination- Primary Preoperative examination, unspecified Epiretinal membrane (ERM) of left eye Essential hypertension Unspecified essential hypertension Type 2 diabetes mellitus with stage 3a chronic kidney disease, without long-term current use of insulin (HCC) Paroxysmal atrial fibrillation (HCC) Atrial fibrillation documented in this encounter [facility] note* Diagnosis Type 2 diabetes mellitus without complication, without long-term current use of insulin (HCC) documented in this encounter [facility] note* Diagnosis Vertigo- Primary Dizziness and giddiness [...] of other medications [facility] Diagnosis Multiple myeloma in remission (HCC)- Primary Multiple myeloma in remission [facility]* Diagnosis Pyogenic arthritis of right elbow, due to unspecified organism ([facility])- Primary Iron deficiency anemia, unspecified iron deficiency anemia type Essential hypertension Unspecified essential hypertension Pseudogout Other disorder of calcium metabolism [facility]* Diagnosis COPD, mild ([facility])- Primary Chronic airway obstruction, not elsewhere classified Former cigarette smoker Personal history of tobacco use, presenting hazards to health Lung nodules Other nonspecific abnormal finding of lung field [facility]* Diagnosis Bilateral carotid artery stenosis- Primary Occlusion and stenosis of carotid artery without mention of cerebral infarction [facility]* Diagnosis Medicare annual wellness visit, subsequent- Primary [facility] Diabetic eye exam ([facility]) Type II or unspecified type diabetes mellitus without mention of complication, not stated as uncontrolled Type 2 diabetes mellitus without complication, without long-term current use of insulin ([facility]) Essential hypertension Unspecified essential hypertension Mixed hyperlipidemia Bilateral carotid artery stenosis Occlusion and stenosis of carotid artery without mention of cerebral infarction Bilateral leg edema Edema Chronic obstructive pulmonary disease, unspecified COPD type (HCC) Pulmonary hypertension, unspecified ([facility]) Dilated aortic root (HCC) Thoracic aortic ectasia Paroxysmal atrial fibrillation (HCC) Atrial fibrillation Peripheral autonomic neuropathy in disorders classified elsewhere Gastroesophageal reflux disease, unspecified whether esophagitis present Multiple myeloma, remission status unspecified (HCC) Multiple myeloma in remission (HCC) Multiple myeloma in remission 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) Antineoplastic chemotherapy induced pancytopenia 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HCC) Peripheral stem cells replaced by transplant 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) Low serum vitamin B12 Hypomagnesemia Disorders of magnesium metabolism Obesity, Class I, BMI 30-34.9 Obesity, unspecified Vitamin D deficiency Unspecified vitamin D deficiency Foot callus Corns and callosities Inflammatory polyarthropathy ([facility]) Unspecified inflammatory polyarthropathy Spinal stenosis, lumbar region, without neurogenic claudication Low serum iron Iron deficiency anemia, unspecified Advance directive discussed with patient Other specified counseling Encounter for screening examination for other mental health and behavioral disorders Screening for depression [facility]* Diagnosis Vertigo Dizziness and giddiness documented [facility]* Diagnosis Spinal stenosis, lumbar region, without neurogenic claudication [facility] RehabilitationEvaluation note* Diagnosis Pseudogout- Primary Other disorder of calcium metabolism [facility] this encounter [facility]* Diagnosis Onychomycosis- Primary Dermatophytosis of nail Type 2 diabetes mellitus without complication, without long-term current use of insulin (HCC) PAD (peripheral artery disease) (HCC) Peripheral vascular disease, unspecified Callus Corns and callosities documented in this encounter [facility]* Diagnosis Type 2 diabetes mellitus without complication, without long-term current use of insulin (HCC) documented [facility] this [facility]* Diagnosis Multiple myeloma in remission (HCC)- Primary Multiple myeloma in remission documented in this [facility]* Diagnosis Advanced directives, counseling/discussion- Primary Other [...] 30-34.9 Obesity, unspecified documented in this [facility]* Diagnosis Diabetic polyneuropathy associated with type 2 diabetes mellitus (HCC)- Primary Onychomycosis Dermatophytosis of nail PAD (peripheral artery disease) Peripheral vascular disease, unspecified Pain in toe of left foot Pain in limb Pain in toe of right foot Pain in limb [facility] Additional Instructions Discharge home with 01/14/2023, [facility] PT/OT.[facility] Work Phone: Hospital Discharge instructions Additional Instructions Follow-up with your PCP Monday if possible. Return for any worsening of symptoms, return for any shortness of breath or chest pain.[facility] Work Phone: Hospital Discharge instructions Additional [...] several commercial devices available to you including [employer]. Please refer to online communications specialist such as [employer] for more information. Please follow with your primary care physician for further outpatient evaluation and management.[facility] Work Phone: Progress note Author Caio Gomez [facility] Note Date/Time February 21, 2025 10:37 am [facility] [address] [place] [address] OFFICE VISIT Date of Service: 02/21/25 MR#: [id number] Acct: [id number] Name: RONNIE YARBROUGH Rep #: [id number] : 1950 Provider: Dr. Nancy Gomez MD Age/Sex: 74/M Location: [facility] [place] Status: Signed Intake Vital Signs 12/05/24 10:30 [...] you fallen in the past year?: No [facility] Medical History Pre-op testing Wears hearing aid [...] Caio Gomez MD 02/21/25 0953. Part of today?s visit was documented by [...] back pain. Patient was referred by Dr. Humberto pain management. He states that he has [...] his lower back that were done at [facility]. His last back surgery was about 3 [...] applicable) CC: Dr. Ovidio Vincent MD ~ [facility] Work Phone: Reason for referral (narrative)* Outpatient Procedure (Routine) - Authorized Specialty Diagnoses / Procedures Referred By Contac t Referred To Contact [facility] Diagnoses Pulmonary arterial hypertension (HCC) Procedures ECHO ECHO TTHRC R-T 2D W/WOM-MODE COMPL SPEC&COLR D Loretta Leon PA-C [address] [address] [facility] [place] [address] [place] [address] Referral ID Status Reason Start Date Expiration Date Visits Requested Visits Authorized [id number] Authorized Auto-Generat ed Referral 07/23/2022 01/20/2023 1 1 * Outpatient Procedure (Routine) - Authorized Specialty Diagnoses / Procedures Referred By Contac t Referred To Contact [facility] Diagnoses 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HCC) Procedures SPIROMETRY BASELINE ONLY SPMTRY W/VC EXPIRATORY LUCIA W/WO MXML VOL VNTJ Loretta Leon PA-C [address] [address] [facility] [place] [address] [place] [address] Referral ID Status Reason Start Date Expiration Date Visits Requested Visits Authorized [id number] Authorized Auto-Generat ed Referral 01/20/2022 02/19/2023 1 1 [facility] for referral (narrative)* Diagnostic Procedure Only (Routine) - Pending Review Specialty Diagnoses / Procedures Referred By Contac t Referred To Contact XR IMAGING Diagnoses Pain of left hand Procedures XR HAND GENERAL 3V PA/LAT/OBL LEFT RADEX HAND MINIMUM 3 VIEWS Mary Lopez PA-C [address] [place] [address] Xr Imaging Referral ID Status Reason Start Date Expiration Date Visits Requested Visits Authorized [id number] Pending Review Auto-Generat ed Referral 04/21/2022 05/07/2023 1 1 [facility] for referral (narrative)* Diagnostic Procedure Only (Routine) - Closed Specialty Diagnoses / Procedures Referred By Contac t Referred To Contact XR IMAGING Diagnoses Pain of left hand Procedures XR HAND GENERAL 3V PA/LAT/OBL LEFT RADEX HAND MINIMUM 3 VIEWS Mary Lopez PA-C [address] [place] [address] Xr Imaging Referral ID Status Reason Start Date Expiration Date V isits Requested Visits Authorized [id number] Closed Auto-Generate d Referral 04/21/2022 05/07/2023 1 1 [facility] for referral (narrative)* Diagnostic Procedure Only (Routine) - Authorized Specialty Diagnoses / Procedures Referred By Contac t Referred To Contact XR IMAGING Diagnoses Multiple myeloma in remission (HCC) H/O autologous stem cell transplant (HCC) Procedures XR BONE SURVEY ROUTINE RADIOLOGIC EXAMINATION OSSEOUS SURVEY COMPL Ela Alvarez MD [address] [facility] [place] [address] Xr Imaging Referral ID Status Reason Start Date Expiration Date Visits Requested Visits Authorized [id number] Authorized Auto-Generat ed Referral 04/26/2022 05/26/2023 1 1 [facility] for referral (narrative)* Diagnostic Procedure Only (Routine) - Closed Specialty Diagnoses / Procedures Referred By Contac t Referred To Contact XR IMAGING Diagnoses Multiple myeloma in remission (HCC) H/O autologous stem cell transplant (HCC) Procedures XR BONE SURVEY ROUTINE RADIOLOGIC EXAMINATION OSSEOUS SURVEY COMPL Ela Alvarez MD [address] [facility] [place] [address] Xr Imaging Referral ID Status Reason Start Date Expiration Date V isits Requested Visits Authorized [id number] Closed Auto-Generate d Referral 04/26/2022 05/26/2023 1 1 [facility] for referral (narrative)* Diagnostic Procedure Only (Routine) - Closed Specialty Diagnoses / [facility] To [facility] IMAG[facility] Diagnoses Ex-smoker Encounter for abdominal aortic aneurysm (AAA) screening Procedures US SCREENING FOR AAA (2017) US ABDOMINAL AORTA REAL TIME SCREEN STUDY AAA Ovidio Vincent MD [address] [place] [address] Us Imaging Referral ID Status Reason Start Date Expiration Date V isits Requested Visits Authorized [id number] Closed Auto-Generate d Referral 12/16/2022 01/15/2024 1 1 [facility] for referral (narrative)* Outpatient Procedure (Urgent) - Closed Specialty Diagnoses / Procedures Referred By [facility] Referred To Contact [facility] Diagnoses Bilateral leg edema Procedures US LEG VEIN DVT [facility] DUP-SCAN XTR VEINS COMPLETE BILATERAL STUDY Ovidio Vincent MD [address] [place] [address] [facility] [place] [address] [place] [address] Referral ID Status Reason Start Date Expiration Date V isits Requested Visits Authorized [id number] Closed Auto-Generate d Referral 02/17/2023 02/17/2024 1 1 [facility] for referral (narrative)* Outpatient Procedure (Routine) - Pending Review Specialty Diagnoses / Procedures Referred By [facility] Referred To Contact [facility] Diagnoses Irregular heart beat Procedures ECG COMPLETE ECG ROUTINE ECG W/LEAST 12 LDS W/I&R Loretta Leon PA-C [address] [place] [address] [facility] [place] [address] [place] [address] Referral ID Status Reason Start Date Expiration Date Visits Requested Visits Authorized [id number] Pending Review Auto-Generat ed Referral 03/20/2023 03/19/2024 1 1 [facility] for referral (narrative)* Diagnostic Procedure Only (Routine) - Closed Specialty Diagnoses / Procedures Referred By Margaritaac t Referred To Contact US IMAGING Diagnoses Ex-smoker Encounter for abdominal aortic aneurysm (AAA) screening Procedures US SCREENING FOR AAA (2017) US ABDOMINAL AORTA REAL TIME SCREEN STUDY AAA Ovidio Vincent MD [address] [place] [address] [place] [address] Referral ID Status Reason Start Date Expiration Date V isits Requested Visits Authorized [id number] Closed Auto-Generate d Referral 12/16/2022 01/15/2024 1 1 [facility] for referral (narrative)* Diagnostic Procedure Only (Routine) - Closed Specialty Diagnoses / [facility] To Contact XR IMAGING Diagnoses Spinal stenosis, lumbar region, without neurogenic claudication Procedures XR LUMBAR PARS DEFECT 4V AP/LAT/BOTH OBL RADEX SPINE LUMBOSACRAL MINIMUM 4 VIEWS Ovidio Vincent MD [address] [place] [address] [place] [address] Referral ID Status Reason Start Date Expiration Date V isits Requested Visits Authorized [id number] Closed Auto-Generate d Referral 09/30/2022 10/30/2023 1 1 [facility] for referral (narrative)* Outpatient Procedure (Routine) - Authorized Specialty Diagnoses / Procedures Referred By Contac t Referred To Contact [facility] Diagnoses PAD (peripheral artery disease) (HCC) Procedures PVR ANK PRESS [facility] NON-INVAS PHYSIOLOGIC STD EXTREMITY ART [address] [place] [address] [facility] [place] [address] [place] [address] Referral ID Status Reason Start Date Expiration Date Visits Requested Visits Authorized [id number] Authorized Auto-Generat ed Referral 07/02/2025 1 1 [facility] for referral (narrative)No reason for referral information [facility] Work Phone: Reason for visit Narrative* Diagnostic Procedure Only (Routine) - Closed Specialty Diagnoses / Procedures Referred By Contac t Referred To Contact XR IMAGING Diagnoses Pain of left hand Procedures XR HAND GENERAL 3V PA/LAT/OBL LEFT RADEX HAND MINIMUM 3 VIEWS Mary Lopez PA-C [address] [place] [address] Xr Imaging Referral ID Status Reason Start Date Expiration Date V isits Requested Visits Authorized [id number] Closed Auto-Generate d Referral 04/21/2022 05/07/2023 1 1 [facility] for visit Narrative* Diagnostic Procedure Only (Routine) - Closed Specialty Diagnoses / Procedures Referred By Contac t Referred To Contact XR IMAGING Diagnoses Multiple myeloma in remission (HCC) H/O autologous stem cell transplant (HCC) Procedures XR BONE SURVEY ROUTINE RADIOLOGIC EXAMINATION OSSEOUS SURVEY Ela Garza MD [address] [place] [address] Xr Imaging Referral ID Status Reason Start Date Expiration Date V isits Requested Visits Authorized [id number] Closed Auto-Generate d Referral 04/26/2022 05/26/2023 1 1 [facility] for visit Narrative* Diagnostic Procedure Only (Routine) - Closed Specialty Diagnoses / Procedures Referred By Contac t Referred To Contact XR IMAGING Diagnoses Spinal stenosis, lumbar region, without neurogenic claudication Procedures XR LUMBAR PARS DEFECT 4V AP/LAT/BOTH OBL RADEX SPINE LUMBOSACRAL MINIMUM 4 VIEWS Ovidio Vincent MD [address] [place] [address] [place] [address] Referral ID Status Reason Start Date Expiration Date V isits Requested Visits Authorized [id number] Closed Auto-Generate d Referral 09/30/2022 10/30/2023 1 1 [facility] Advance Directives No Advanced Directives Records FoundDocuments on File Type Date Recorded Patient Rug Designer Expl 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 Advance Directive(s) 10/22/2019 2:04 PM Advance Directive(s) 06/13/2018 10:45 AM Advance Directive(s) 11/16/2017 8:42 AM Advance Directive(s) 12/28/2011 12:00 AM Advance Directive(s) 11/03/2006 12:00 AM Advance Directive Response Recorded Date/ Time Advance Directives Yes October 07, 2017 9:22pm Living Will Yes October 07 9:22pm Power of Investment Sales Assistant Yes October 07, 2017 9:22pm Documents on File Type Date Recorded Patient Rug Designer Expl 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 Advance Directive(s) 10/22/2019 2:04 PM Advance Directive(s) 06/13/2018 10:45 AM Advance Directive(s) 11/16/2017 8:42 AM Advance Directive(s) 12/28/2011 12:00 AM Advance Directive(s) 11/03/2006 12:00 AM Documents on File Type Date Recorded Patient Rug Designer Expl anation Advance Directive(s) 04/07/2022 1:23 PM Advance Directive(s) 10/22/2019 2:04 PM Advance Directive(s) 06/13/2018 10:45 AM Advance Directive(s) 11/16/2017 8:42 AM Advance Directive(s) 12/28/2011 12:00 AM Advance Directive(s) 11/03/2006 12:00 AM Documents on File Type Date Recorded Patient Rug Designer Expl anation Advance Directive(s) 04/07/2022 1:23 PM Advance Directive(s) 10/22/2019 2:04 PM Advance Directive(s) 06/13/2018 10:45 AM Advance Directive(s) 11/16/2017 8:42 AM Advance Directive(s) 12/28/2011 12:00 AM Advance Directive(s) 11/03/2006 12:00 AM Documents on File Type Date Recorded Patient Rug Designer Expl anation Advance Directive(s) 12/28/2011 Advance Directive(s) 11/03/2006 Documents on File Type Date Recorded Patient Rug Designer Expl anation Advance Directive(s) 12/28/2011 Advance Directive(s) 11/03/2006 Advance Directive Response Recorded Date/ Time Advance Directives Yes October 07, 2017 8:22pm Living Will Yes October 07 8:22pm Power of Investment Sales Assistant Yes October 07, 2017 8:22pm Advance Directive Response Recorded Date/ Time Advance Directives Yes October 07, 2017 9:22pm Living Will Yes January 05, 2023 3:02pm Power of Investment Sales Assistant Yes January 05 3:02pm Name of Medical Power of Investment Sales Assistant Yesenia Yarbrough January 05, 2023 3:02pm Advance Directive Response Recorded Date/ Time Name of Medical Power of Investment Sales Assistant Yesenai Yarbrough January 05, 2023 3:02pm Name of Medical Power of Investment Sales Assistant February 10, 2023 8:37am Name of Medical Power of Investment Sales Assistant FORGETS NAME February 17, 2023 12:37pm Advance Directives Yes October 07, 2017 9:22pm Living Will Yes February 17, 2023 1 2:37pm Power of Investment Sales Assistant Yes February 17, 2023 12:37pm Advance Directive Response Recorded Date/ Time Name of Medical Power of Investment Sales Assistant Yesenia Yarbrough January 05, 2023 3:02pm Name of Medical Power of Investment Sales Assistant February 10, 2023 8:37am Name of Medical Power of Investment Sales Assistant FORGETS NAME February 17, 2023 12:37pm Name of Medical Power of Investment Sales Assistant n/a March 22, 2023 4:54pm Advance Directives Yes October 07, 2017 9:22pm Living Will Yes March 22, 2023 4 :54pm Power of Investment Sales Assistant Yes March 22, 2023 4:54pm Advance Directive Response Recorded Date/ Time Name of Medical Power of Investment Sales Assistant February 10, 2023 8:37am Name of Medical Power of Investment Sales Assistant FORGETS NAME February 17, 2023 12:37pm Name of Medical Power of Investment Sales Assistant n/a March 22, 2023 4:54pm Advance Directives Yes October 07, 2017 9:22pm Living Will Yes March 22, 2023 4 :54pm Power of Investment Sales Assistant Yes March 22, 2023 4:54pm Advance Directive Response Recorded Date/ Time Advance Directives Yes October 07, 2017 8:22pm Living Will Yes March 22, 2023 3 :54pm Power of Investment Sales Assistant Yes March 22, 2023 3:54pm Advance Directive [...] Referral Specialty Diagnoses / Procedures Referred By Bryanna t Referred To Contact Orthopedics Diagnoses Ganglion cyst Procedures CONSULT TO ORTHOPAEDICS OFFICE/OUTPATIENT [facility] 60-74 MINUTES Leslye Winter PA-C [address] [place] [address] Referral ID Status Reason Start Date Expiration Date Visits Requested Visits Authorized [id number] Pending Review PCP Requested Referral 03/22/2022 03/22/2023 1 1 Specialty Diagnoses / Procedures Referred By Contac t Referred To Contact Rheumatology Diagnoses Inflammatory polyarthropathy (HCC) Procedures CONSULT TO RHEUM/IMMUN DISEASE OFFICE/OUTPATIENT [facility] 60-74 MINUTES Leslye Winter PA-C [address] [place] [address] Referral ID Status Reason Start Date Expiration Date Visits Requested Visits Authorized [id number] Pending Review PCP Requested Referral 03/22/2022 03/22/2023 1 1 Specialty Diagnoses / Procedures Referred By Contac t Referred To Contact Rheumatology Diagnoses Inflammatory polyarthropathy (HCC) Procedures CONSULT TO RHEUM/IMMUN DISEASE OFFICE/OUTPATIENT [facility] 60-74 MINUTES Ovidio Vincent MD [address] [place] [address] Referral ID Status Reason Start Date Expiration Date Visits Requested Visits Authorized [id number] Pending Review PCP Requested Referral 07/04/2023 1 1 Specialty Diagnoses / Procedures Referred By Contac t Referred To Contact [facility] Diagnoses Spinal stenosis, lumbar region, without neurogenic claudication Procedures CONSULT TO PAIN MGT OFFICE/OUTPATIENT [facility] 60-74 MINUTES Ovidio Vincent MD [address] [place] [address] [facility] [place] [address] [place] [address] Referral ID Status Reason Start Date Expiration Date V isits Requested Visits Authorized [id number] Closed PCP Requested Referral 09/30/2022 09/30/2023 1 1 Specialty Diagnoses / Procedures Referred By Contac t Referred To Contact XR IMAGING Diagnoses Spinal stenosis, lumbar region, without neurogenic claudication Procedures XR LUMBAR PARS DEFECT 4V AP/LAT/BOTH OBL RADEX SPINE LUMBOSACRAL MINIMUM 4 VIEWS Ovidio Vincent MD [address] [place] [address] Xr Imaging Referral ID Status Reason Start Date Expiration Date Visits Requested Visits Authorized [id number] Pending Review Auto-Generat ed Referral 09/30/2022 10/30/2023 1 1 Specialty Diagnoses / Procedures Referred By Contac t Referred To Contact CT IMAGING Diagnoses Lung nodules Procedures CT CHEST WO IVCON DIAGNOSTIC COMPUTED TOMOGRAPHY THORAX W/O CNTRST Hayde Ward MD [address] [place] [address] Ct Imaging Referral ID Status Reason Start Date Expiration Date Visits Requested Visits Authorized [id number] Authorized Auto-Generat ed Referral 03/07/2023 11/27/2023 1 1 Specialty Diagnoses / Procedures Referred By Contac t Referred To Contact Cardiology Diagnoses Paroxysmal atrial fibrillation (HCC) Procedures CONSULT TO CARDIOLOGY OFFICE/OUTPATIENT [facility] 60-74 MINUTES Ovidio Vincent MD [address] [place] [address] Referral ID Status Reason Start Date Expiration Date Visits Requested Visits Authorized [id number] Pending Review PCP Requested Referral 04/05/2023 04/04/2024 1 1 Specialty Diagnoses / Procedures Referred By Contac t Referred To Contact CT IMAGING Diagnoses Lung nodules Procedures CT CHEST WO IVCON DIAGNOSTIC COMPUTED TOMOGRAPHY THORAX W/O CNTRST Loretta Leon PA-C [address] [place] [address] [place] [address] Referral ID Status Reason Start Date Expiration Date Visits Requested Visits Authorized [id number] Authorized Auto-Generat ed Referral 08/10/2024 1 1 Specialty Diagnoses / Procedures Referred By Contac t Referred To Contact MR IMAGING Diagnoses Vertigo Procedures MRI BRAIN WO IVCON MRI BRAIN BRAIN STEM W/O CONTRAST MATERIAL Ovidio Vincent MD [address] [place] [address] [place] [address] Referral ID Status Reason Start Date Expiration Date Visits Requested Visits Authorized [id number] Authorized Auto-Generat ed Referral 04/16/2024 05/16/2025 1 1 Specialty Diagnoses / Procedures Referred By Contac t Referred To Contact [facility] Diagnoses Vertigo Procedures CONSULT TO PHYSICAL THERAPY PHYSICAL THERAPY EVALUATION HIGH COMPLEX 45 MINS Ovidio Vincent MD [address] [place] [address] [facility] [address] [address] Referral ID Status Reason Start Date Expiration Date Visits Requested Visits Authorized [id number] Pending Review Auto-Generat ed Referral 04/16/2024 04/16/2025 1 1 Specialty Diagnoses / Procedures Referred By Contac t Referred To Contact [facility] Diagnoses Neck pain Muscle spasms of neck Procedures CONSULT TO PHYSICAL THERAPY PHYSICAL THERAPY EVALUATION HIGH COMPLEX 45 MINS Ovidio Vincent MD [address] [place] [address] [address] Referral ID Status Reason Start Date Expiration Date Visits Requested Visits Authorized [id number] Pending Review Auto-Generat ed Referral 04/16/2024 04/16/2025 1 1 Specialty Diagnoses / Procedures Referred By Contac t Referred To Contact [facility] Diagnoses Vertigo Procedures US CAROTID ARTERIES [facility] DUPLEX SCAN EXTRACRANIAL ART COMPL BI STUDY Ovidio Vincent MD [address] [place] [address] [facility] [address] [address] Referral ID Status Reason Start Date Expiration Date Visits Requested Visits Authorized [id number] Authorized Auto-Generat ed Referral 04/16/2024 04/16/2025 1 1 Specialty Diagnoses / Procedures Referred By Contac t Referred To Contact Infectious Diseases Diagnoses Pyogenic arthritis of right elbow, due to unspecified organism (HCC) Procedures CONSULT TO INFECTIOUS DISEASES OFFICE/OUTPATIENT [facility] 60 MINUTES Leslye Wniter PA-C [address] [place] [address] Referral ID Status Reason Start Date Expiration Date Visits Requested Visits Authorized [id number] Authorized PCP Requested Referral 05/27/2024 05/27/2025 1 1 Specialty Diagnoses / Procedures Referred By Contac t Referred To Contact Podiatry Diagnoses Type 2 diabetes mellitus without complication, without long-term current use of insulin (HCC) Foot callus Procedures CONSULT TO PODIATRY OFFICE/OUTPATIENT [facility] 60 MINUTES Ovidio Vincent MD [address] [place] [address] Referral ID Status Reason Start Date Expiration Date Visits Requested Visits Authorized [id number] Authorized PCP Requested Referral 05/30/2024 05/30/2025 1 1 Referral ID Status Reason Start Date Expiration Date V isits Requested Visits Authorized [id number] Closed Auto-Generate d Referral 04/16/2024 05/16/2025 1 [...] or prosecute any alcohol or drug abuse patient.[facility] the event this information is protected by the Federal Confidentiality of Alcohol and Drug Abuse Patient Records regulations: The Federal rules restrict any use of the information to criminally investigate or prosecute any alcohol or drug abuse patient.[facility] Rehabilitation[facility] the event this information is protected by the Federal Confidentiality of Alcohol and Drug Abuse Patient Records regulations: The Federal rules restrict any use of the information to criminally investigate or prosecute any alcohol or drug abuse patient.[facility] Rehabilitation[facility] the event this information is protected by the Federal Confidentiality of Alcohol and Drug Abuse Patient Records regulations: The Federal rules restrict any use of the information to criminally investigate or prosecute any alcohol or drug abuse patient.[facility] Rehabilitation[facility] the event this information is protected by the Federal Confidentiality of Alcohol and Drug Abuse Patient Records regulations: The Federal rules restrict any use of the information to criminally investigate or prosecute any alcohol or drug abuse patient.[facility] RehabilitationIn the event this information is protected by the Federal Confidentiality of Alcohol and Drug Abuse Patient Records regulations: The Federal rules restrict any use of the information to criminally investigate or prosecute any alcohol or drug abuse patient.[facility] RehabilitationIn the event this information is protected by the Federal Confidentiality of Alcohol and Drug Abuse Patient Records regulations: The Federal rules restrict any use of the information to criminally investigate or prosecute any alcohol or drug abuse patient.[facility] RehabilitationIn the event this information is protected by the Federal Confidentiality of Alcohol and Drug Abuse Patient Records regulations: The Federal rules restrict any use of the information to criminally investigate or prosecute any alcohol or drug abuse patient.[facility]In the event this information is protected by the Federal Confidentiality of Alcohol and Drug Abuse Patient Records regulations: The Federal rules restrict any use of the information to criminally investigate or prosecute any alcohol or drug abuse patient.[facility] RehabilitationIn the event this information is protected by the Federal Confidentiality of Alcohol and Drug Abuse Patient Records regulations: The Federal rules restrict any use of the information to criminally investigate or prosecute any alcohol or drug abuse patient.[facility] RehabilitationIn the event this information is protected by the Federal Confidentiality of Alcohol and Drug Abuse Patient Records regulations: The Federal rules restrict any use of the information to criminally investigate or prosecute any alcohol or drug abuse patient.[facility] RehabilitationIn the event this information is protected by the Federal Confidentiality of Alcohol and Drug Abuse Patient Records regulations: The Federal rules restrict any use of the information to criminally investigate or prosecute any alcohol or drug abuse patient.[facility] RehabilitationIn the event this information is protected by the Federal Confidentiality of Alcohol and Drug Abuse Patient Records regulations: The Federal rules restrict any use of the information to criminally investigate or prosecute any alcohol or drug abuse patient.[facility] RehabilitationIn the event this information is protected by the Federal Confidentiality of Alcohol and Drug Abuse Patient Records regulations: The Federal rules restrict any use of the information to criminally investigate or prosecute any alcohol or drug abuse patient.[facility] RehabilitationIn the event this information is protected by the Federal Confidentiality of Alcohol and Drug Abuse Patient Records regulations: The Federal rules restrict any use of the information to criminally investigate or prosecute any alcohol or drug abuse patient.[facility] RehabilitationIn the event this information is protected by the Federal Confidentiality of Alcohol and Drug Abuse Patient Records regulations: The Federal rules restrict any use of the information to criminally investigate or prosecute any alcohol or drug abuse patient.[facility] RehabilitationIn the event this information is protected by the Federal Confidentiality of Alcohol and Drug Abuse Patient Records regulations: The Federal rules restrict any use of the information to criminally investigate or prosecute any alcohol or drug abuse patient.[facility] RehabilitationIn the event this information is protected by the Federal Confidentiality of Alcohol and Drug Abuse Patient Records regulations: The Federal rules restrict any use of the information to criminally investigate or prosecute any alcohol or drug abuse patient.[facility] RehabilitationIn the event this information is protected by the Federal Confidentiality of Alcohol and Drug Abuse Patient Records regulations: The Federal rules restrict any use of the information to criminally investigate or prosecute any alcohol or drug abuse patient.[facility] RehabilitationIn the event this information is protected by the Federal Confidentiality of Alcohol and Drug Abuse Patient Records regulations: The Federal rules restrict any use of the information to criminally investigate or prosecute any alcohol or drug abuse patient.[facility] RehabilitationIn the event this information is protected by the Federal Confidentiality of Alcohol and Drug Abuse Patient Records regulations: The Federal rules restrict any use of the information to criminally investigate or prosecute any alcohol or drug abuse patient.[facility] RehabilitationIn the event this information is protected by the Federal Confidentiality of Alcohol and Drug Abuse Patient Records regulations: The Federal rules restrict any use of the information to criminally investigate or prosecute any alcohol or drug abuse patient.[facility] RehabilitationIn the event this information is protected by the Federal Confidentiality of Alcohol and Drug Abuse Patient Records regulations: The Federal rules restrict any use of the information to criminally investigate or prosecute any alcohol or drug abuse patient.[facility] RehabilitationIn the event this information is protected by the Federal Confidentiality of Alcohol and Drug Abuse Patient Records regulations: The Federal rules restrict any use of the information to criminally investigate or prosecute any alcohol or drug abuse patient.[facility] RehabilitationIn the event this information is protected by the Federal Confidentiality of Alcohol and Drug Abuse Patient Records regulations: The Federal rules restrict any use of the information to criminally investigate or prosecute any alcohol or drug abuse patient.[facility] RehabilitationIn the event this information is protected by the Federal Confidentiality of Alcohol and Drug Abuse Patient Records regulations: The Federal rules restrict any use of the information to criminally investigate or prosecute any alcohol or drug abuse patient.[facility] RehabilitationIn the event this information is protected by the Federal Confidentiality of Alcohol and Drug Abuse Patient Records regulations: The Federal rules restrict any use of the information to criminally investigate or prosecute any alcohol or drug abuse patient.[facility] RehabilitationIn the event this information is protected by the Federal Confidentiality of Alcohol and Drug Abuse Patient Records regulations: The Federal rules restrict any use of the information to criminally investigate or prosecute any alcohol or drug abuse patient.[facility] RehabilitationIn the event this information is protected by the Federal Confidentiality of Alcohol and Drug Abuse Patient Records regulations: The Federal rules restrict any use of the information to criminally investigate or prosecute any alcohol or drug abuse patient.[facility] RehabilitationIn the event this information is protected by the Federal Confidentiality of Alcohol and Drug Abuse Patient Records regulations: The Federal rules restrict any use of the information to criminally investigate or prosecute any alcohol or drug abuse patient.[facility] RehabilitationIn the event this information is protected by the Federal Confidentiality of Alcohol and Drug Abuse Patient Records regulations: The Federal rules restrict any use of the information to criminally investigate or prosecute any alcohol or drug abuse patient.[facility] RehabilitationIn the event this information is protected by the Federal Confidentiality of Alcohol and Drug Abuse Patient Records regulations: The Federal rules restrict any use of the information to criminally investigate or prosecute any alcohol or drug abuse patient.[facility] RehabilitationIn the event this information is protected by the Federal Confidentiality of Alcohol and Drug Abuse Patient Records regulations: The Federal rules restrict any use of the information to criminally investigate or prosecute any alcohol or drug abuse patient.[facility] RehabilitationIn the event this information is protected by the Federal Confidentiality of Alcohol and Drug Abuse Patient Records regulations: The Federal rules restrict any use of the information to criminally investigate or prosecute any alcohol or drug abuse patient.[facility] RehabilitationIn the event this information is protected by the Federal Confidentiality of Alcohol and Drug Abuse Patient Records regulations: The Federal rules restrict any use of the information to criminally investigate or prosecute any alcohol or drug abuse patient.[facility] RehabilitationIn the event this information is protected by the Federal Confidentiality of Alcohol and Drug Abuse Patient Records regulations: The Federal rules restrict any use of the information to criminally investigate or prosecute any alcohol or drug abuse patient.[facility] RehabilitationIn the event this information is protected by the Federal Confidentiality of Alcohol and Drug Abuse Patient Records regulations: The Federal rules restrict any use of the information to criminally investigate or prosecute any alcohol or drug abuse patient.[facility] RehabilitationIn the event this information is protected by the Federal Confidentiality of Alcohol and Drug Abuse Patient Records regulations: The Federal rules restrict any use of the information to criminally investigate or prosecute any alcohol or drug abuse patient.[facility] RehabilitationIn the event this information is protected by the Federal Confidentiality of Alcohol and Drug Abuse Patient Records regulations: The Federal rules restrict any use of the information to criminally investigate or prosecute any alcohol or drug abuse patient.[facility] RehabilitationIn the event this information is protected by the Federal Confidentiality of Alcohol and Drug Abuse Patient Records regulations: The Federal rules restrict any use of the information to criminally investigate or prosecute any alcohol or drug abuse patient.[facility] RehabilitationIn the event this information is protected by the Federal Confidentiality of Alcohol and Drug Abuse Patient Records regulations: The Federal rules restrict any use of the information to criminally investigate or prosecute any alcohol or drug abuse patient.[facility] RehabilitationIn the event this information is protected by the Federal Confidentiality of Alcohol and Drug Abuse Patient Records regulations: The Federal rules restrict any use of the information to criminally investigate or prosecute any alcohol or drug abuse patient.[facility] RehabilitationIn the event this information is protected by the Federal Confidentiality of Alcohol and Drug Abuse Patient Records regulations: The Federal rules restrict any use of the information to criminally investigate or prosecute any alcohol or drug abuse patient.[facility] RehabilitationIn the event this information is protected by the Federal Confidentiality of Alcohol and Drug Abuse Patient Records regulations: The Federal rules restrict any use of the information to criminally investigate or prosecute any alcohol or drug abuse patient.[facility] RehabilitationIn the event this information is protected by the Federal Confidentiality of Alcohol and Drug Abuse Patient Records regulations: The Federal rules restrict any use of the information to criminally investigate or prosecute any alcohol or drug abuse patient.[facility] RehabilitationIn the event this information is protected by the Federal Confidentiality of Alcohol and Drug Abuse Patient Records regulations: The Federal rules restrict any use of the information to criminally investigate or prosecute any alcohol or drug abuse patient.[facility] RehabilitationIn the event this information is protected by the Federal Confidentiality of Alcohol and Drug Abuse Patient Records regulations: The Federal rules restrict any use of the information to criminally investigate or prosecute any alcohol or drug abuse patient.[facility] RehabilitationIn the event this information is protected by the Federal Confidentiality of Alcohol and Drug Abuse Patient Records regulations: The Federal rules restrict any use of the information to criminally investigate or prosecute any alcohol or drug abuse patient.[facility] RehabilitationIn the event this information is protected by the Federal Confidentiality of Alcohol and Drug Abuse Patient Records regulations: The Federal rules restrict any use of the information to criminally investigate or prosecute any alcohol or drug abuse patient.[facility] RehabilitationIn the event this information is protected by the Federal Confidentiality of Alcohol and Drug Abuse Patient Records regulations: The Federal rules restrict any use of the information to criminally investigate or prosecute any alcohol or drug abuse patient.[facility] RehabilitationIn the event this information is protected by the Federal Confidentiality of Alcohol and Drug Abuse Patient Records regulations: The Federal rules restrict any use of the information to criminally investigate or prosecute any alcohol or drug abuse patient.[facility] RehabilitationIn the event this information is protected by the Federal Confidentiality of Alcohol and Drug Abuse Patient Records regulations: The Federal rules restrict any use of the information to criminally investigate or prosecute any alcohol or drug abuse patient.[facility] RehabilitationIn the event this information is protected by the Federal Confidentiality of Alcohol and Drug Abuse Patient Records regulations: The Federal rules restrict any use of the information to criminally investigate or prosecute any alcohol or drug abuse patient.[facility] RehabilitationIn the event this information is protected by the Federal Confidentiality of Alcohol and Drug Abuse Patient Records regulations: The Federal rules restrict any use of the information to criminally investigate or prosecute any alcohol or drug abuse patient.[facility] RehabilitationIn the event this information is protected by the Federal Confidentiality of Alcohol and Drug Abuse Patient Records regulations: The Federal rules restrict any use of the information to criminally investigate or prosecute any alcohol or drug abuse patient.[facility] RehabilitationIn the event this information is protected by the Federal Confidentiality of Alcohol and Drug Abuse Patient Records regulations: The Federal rules restrict any use of the information to criminally investigate or prosecute any alcohol or drug abuse patient.[facility] RehabilitationIn the event this information is protected by the Federal Confidentiality of Alcohol and Drug Abuse Patient Records regulations: The Federal rules restrict any use of the information to criminally investigate or prosecute any alcohol or drug abuse patient.[facility] RehabilitationIn the event this information is protected by the Federal Confidentiality of Alcohol and Drug Abuse Patient Records regulations: The Federal rules restrict any use of the information to criminally investigate or prosecute any alcohol or drug abuse patient.[facility] RehabilitationIn the event this information is protected by the Federal Confidentiality of Alcohol and Drug Abuse Patient Records regulations: The Federal rules restrict any use of the information to criminally investigate or prosecute any alcohol or drug abuse patient.[facility] RehabilitationIn the event this information is protected by the Federal Confidentiality of Alcohol and Drug Abuse Patient Records regulations: The Federal rules restrict any use of the information to criminally investigate or prosecute any alcohol or drug abuse patient.[facility] RehabilitationIn the event this information is protected by the Federal Confidentiality of Alcohol and Drug Abuse Patient Records regulations: The Federal rules restrict any use of the information to criminally investigate or prosecute any alcohol or drug abuse patient.[facility] RehabilitationIn the event this information is protected by the Federal Confidentiality of Alcohol and Drug Abuse Patient Records regulations: The Federal rules restrict any use of the information to criminally investigate or prosecute any alcohol or drug abuse patient.[facility] RehabilitationIn the event this information is protected by the Federal Confidentiality of Alcohol and Drug Abuse Patient Records regulations: The Federal rules restrict any use of the information to criminally investigate or prosecute any alcohol or drug abuse patient.[facility] RehabilitationIn the event this information is protected by the Federal Confidentiality of Alcohol and Drug Abuse Patient Records regulations: The Federal rules restrict any use of the information to criminally investigate or prosecute any alcohol or drug abuse patient.[facility] RehabilitationIn the event this information is protected by the Federal Confidentiality of Alcohol and Drug Abuse Patient Records regulations: The Federal rules restrict any use of the information to criminally investigate or prosecute any alcohol or drug abuse patient.[facility] RehabilitationIn the event this information is protected by the Federal Confidentiality of Alcohol and Drug Abuse Patient Records regulations: The Federal rules restrict any use of the information to criminally investigate or prosecute any alcohol or drug abuse patient.[facility] RehabilitationIn the event this information is protected by the Federal Confidentiality of Alcohol and Drug Abuse Patient Records regulations: The Federal rules restrict any use of the information to criminally investigate or prosecute any alcohol or drug abuse patient.[facility] RehabilitationIn the event this information is protected by the Federal Confidentiality of Alcohol and Drug Abuse Patient Records regulations: The Federal rules restrict any use of the information to criminally investigate or prosecute any alcohol or drug abuse patient.[facility] RehabilitationIn the event this information is protected by the Federal Confidentiality of Alcohol and Drug Abuse Patient Records regulations: The Federal rules restrict any use of the information to criminally investigate or prosecute any alcohol or drug abuse patient.[facility] RehabilitationIn the event this information is protected by the Federal Confidentiality of Alcohol and Drug Abuse Patient Records regulations: The Federal rules restrict any use of the information to criminally investigate or prosecute any alcohol or drug abuse patient.[facility] RehabilitationIn the event this information is protected by the Federal Confidentiality of Alcohol and Drug Abuse Patient Records regulations: The Federal rules restrict any use of the information to criminally investigate or prosecute any alcohol or drug abuse patient.[facility] RehabilitationIn the event this information is protected by the Federal Confidentiality of Alcohol and Drug Abuse Patient Records regulations: The Federal rules restrict any use of the information to criminally investigate or prosecute any alcohol or drug abuse patient.[facility] RehabilitationIn the event this information is protected by the Federal Confidentiality of Alcohol and Drug Abuse Patient Records regulations: The Federal rules restrict any use of the information to criminally investigate or prosecute any alcohol or drug abuse patient.[facility] RehabilitationIn the event this information is protected by the Federal Confidentiality of Alcohol and Drug Abuse Patient Records regulations: The Federal rules restrict any use of the information to criminally investigate or prosecute any alcohol or drug abuse patient.[facility] RehabilitationIn the event this information is protected by the Federal Confidentiality of Alcohol and Drug Abuse Patient Records regulations: The Federal rules restrict any use of the information to criminally investigate or prosecute any alcohol or drug abuse patient.[facility] RehabilitationIn the event this information is protected by the Federal Confidentiality of Alcohol and Drug Abuse Patient Records regulations: The Federal rules restrict any use of the information to criminally investigate or prosecute any alcohol or drug abuse patient.[facility] RehabilitationIn the event this information is protected by the Federal Confidentiality of Alcohol and Drug Abuse Patient Records regulations: The Federal rules restrict any use of the information to criminally investigate or prosecute any alcohol or drug abuse patient.[facility] RehabilitationIn the event this information is protected by the Federal Confidentiality of Alcohol and Drug Abuse Patient Records regulations: The Federal rules restrict any use of the information to criminally investigate or prosecute any alcohol or drug abuse patient.[facility] RehabilitationIn the event this information is protected by the Federal Confidentiality of Alcohol and Drug Abuse Patient Records regulations: The Federal rules restrict any use of the information to criminally investigate or prosecute any alcohol or drug abuse patient.[facility] RehabilitationIn the event this information is protected by the Federal Confidentiality of Alcohol and Drug Abuse Patient Records regulations: The Federal rules restrict any use of the information to criminally investigate or prosecute any alcohol or drug abuse patient.[facility] RehabilitationIn the event this information is protected by the Federal Confidentiality of Alcohol and Drug Abuse Patient Records regulations: The Federal rules restrict any use of the information to criminally investigate or prosecute any alcohol or drug abuse patient.[facility] RehabilitationIn the event this information is protected by the Federal Confidentiality of Alcohol and Drug Abuse Patient Records regulations: The Federal rules restrict any use of the information to criminally investigate or prosecute any alcohol or drug abuse patient.[facility] RehabilitationIn the event this information is protected by the Federal Confidentiality of Alcohol and Drug Abuse Patient Records regulations: The Federal rules restrict any use of the information to criminally investigate or prosecute any alcohol or drug abuse patient.[facility] RehabilitationIn the event this information is protected by the Federal Confidentiality of Alcohol and Drug Abuse Patient Records regulations: The Federal rules restrict any use of the information to criminally investigate or prosecute any alcohol or drug abuse patient.[facility] RehabilitationIn the event this information is protected by the Federal Confidentiality of Alcohol and Drug Abuse Patient Records regulations: The Federal rules restrict any use of the information to criminally investigate or prosecute any alcohol or drug abuse patient.[facility] RehabilitationIn the event this information is protected by the Federal Confidentiality of Alcohol and Drug Abuse Patient Records regulations: The Federal rules restrict any use of the information to criminally investigate or prosecute any alcohol or drug abuse patient.[facility] RehabilitationIn the event this information is protected by the Federal Confidentiality of Alcohol and Drug Abuse Patient Records regulations: The Federal rules restrict any use of the information to criminally investigate or prosecute any alcohol or drug abuse patient.[facility] RehabilitationIn the event this information is protected by the Federal Confidentiality of Alcohol and Drug Abuse Patient Records regulations: The Federal rules restrict any use of the information to criminally investigate or prosecute any alcohol or drug abuse patient.[facility] RehabilitationIn the event this information is protected by the Federal Confidentiality of Alcohol and Drug Abuse Patient Records regulations: The Federal rules restrict any use of the information to criminally investigate or prosecute any alcohol or drug abuse patient.[facility] RehabilitationIn the event this information is protected by the Federal Confidentiality of Alcohol and Drug Abuse Patient Records regulations: The Federal rules restrict any use of the information to criminally investigate or prosecute any alcohol or drug abuse patient.[facility] RehabilitationIn the event this information is protected by the Federal Confidentiality of Alcohol and Drug Abuse Patient Records regulations: The Federal rules restrict any use of the information to criminally investigate or prosecute any alcohol or drug abuse patient.[facility] RehabilitationIn the event this information is protected by the Federal Confidentiality of Alcohol and Drug Abuse Patient Records regulations: The Federal rules restrict any use of the information to criminally investigate or prosecute any alcohol or drug abuse patient.[facility] RehabilitationIn the event this information is protected by the Federal Confidentiality of Alcohol and Drug Abuse Patient Records regulations: The Federal rules restrict any use of the information to criminally investigate or prosecute any alcohol or drug abuse patient.[facility] RehabilitationIn the event this information is protected by the Federal Confidentiality of Alcohol and Drug Abuse Patient Records regulations: The Federal rules restrict any use of the information to criminally investigate or prosecute any alcohol or drug abuse patient.[facility] RehabilitationIn the event this information is protected by the Federal Confidentiality of Alcohol and Drug Abuse Patient Records regulations: The Federal rules restrict any use of the information to criminally investigate or prosecute any alcohol or drug abuse patient.[facility] RehabilitationIn the event this information is protected by the Federal Confidentiality of Alcohol and Drug Abuse Patient Records regulations: The Federal rules restrict any use of the information to criminally investigate or prosecute any alcohol or drug abuse patient.[facility] RehabilitationIn the event this information is protected by the Federal Confidentiality of Alcohol and Drug Abuse Patient Records regulations: The Federal rules restrict any use of the information to criminally investigate or prosecute any alcohol or drug abuse patient.[facility] RehabilitationIn the event this information is protected by the Federal Confidentiality of Alcohol and Drug Abuse Patient Records regulations: The Federal rules restrict any use of the information to criminally investigate or prosecute any alcohol or drug abuse patient.[facility] RehabilitationIn the event this information is protected by the Federal Confidentiality of Alcohol and Drug Abuse Patient Records regulations: The Federal rules restrict any use of the information to criminally investigate or prosecute any alcohol or drug abuse patient.[facility] RehabilitationIn the event this information is protected by the Federal Confidentiality of Alcohol and Drug Abuse Patient Records regulations: The Federal rules restrict any use of the information to criminally investigate or prosecute any alcohol or drug abuse patient.[facility] RehabilitationIn the event this information is protected by the Federal Confidentiality of Alcohol and Drug Abuse Patient Records regulations: The Federal rules restrict any use of the information to criminally investigate or prosecute any alcohol or drug abuse patient.[facility] RehabilitationIn the event this information is protected by the Federal Confidentiality of Alcohol and Drug Abuse Patient Records regulations: The Federal rules restrict any use of the information to criminally investigate or prosecute any alcohol or drug abuse patient.[facility] RehabilitationIn the event this information is protected by the Federal Confidentiality of Alcohol and Drug Abuse Patient Records regulations: The Federal rules restrict any use of the information to criminally investigate or prosecute any alcohol or drug abuse patient.[facility] RehabilitationIn the event this information is protected by the Federal Confidentiality of Alcohol and Drug Abuse Patient Records regulations: The Federal rules restrict any use of the information to criminally investigate or prosecute any alcohol or drug abuse patient.[facility] RehabilitationIn the event this information is protected by the Federal Confidentiality of Alcohol and Drug Abuse Patient Records regulations: The Federal rules restrict any use of the information to criminally investigate or prosecute any alcohol or drug abuse patient.[facility] RehabilitationIn the event this information is protected by the Federal Confidentiality of Alcohol and Drug Abuse Patient Records regulations: The Federal rules restrict any use of the information to criminally investigate or prosecute any alcohol or drug abuse patient.[facility] RehabilitationIn the event this information is protected by the Federal Confidentiality of Alcohol and Drug Abuse Patient Records regulations: The Federal rules restrict any use of the information to criminally investigate or prosecute any alcohol or drug abuse patient.[facility] RehabilitationIn the event this information is protected by the Federal Confidentiality of Alcohol and Drug Abuse Patient Records regulations: The Federal rules restrict any use of the information to criminally investigate or prosecute any alcohol or drug abuse patient.[facility] RehabilitationIn the event this information is protected by the Federal Confidentiality of Alcohol and Drug Abuse Patient Records regulations: The Federal rules restrict any use of the information to criminally investigate or prosecute any alcohol or drug abuse patient.[facility] RehabilitationIn the event this information is protected by the Federal Confidentiality of Alcohol and Drug Abuse Patient Records regulations: The Federal rules restrict any use of the information to criminally investigate or prosecute any alcohol or drug abuse patient.[facility] RehabilitationIn the event this information is protected by the Federal Confidentiality of Alcohol and Drug Abuse Patient Records regulations: The Federal rules restrict any use of the information to criminally investigate or prosecute any alcohol or drug abuse patient.[facility] RehabilitationIn the event this information is protected by the Federal Confidentiality of Alcohol and Drug Abuse Patient Records regulations: The Federal rules restrict any use of the information to criminally investigate or prosecute any alcohol or drug abuse patient.[facility] RehabilitationIn the event this information is protected by the Federal Confidentiality of Alcohol and Drug Abuse Patient Records regulations: The Federal rules restrict any use of the information to criminally investigate or prosecute any alcohol or drug abuse patient.[facility] RehabilitationIn the event this information is protected by the Federal Confidentiality of Alcohol and Drug Abuse Patient Records regulations: The Federal rules restrict any use of the information to criminally investigate or prosecute any alcohol or drug abuse patient.[facility] RehabilitationIn the event this information is protected by the Federal Confidentiality of Alcohol and Drug Abuse Patient Records regulations: The Federal rules restrict any use of the information to criminally investigate or prosecute any alcohol or drug abuse patient.[facility] RehabilitationIn the event this information is protected by the Federal Confidentiality of Alcohol and Drug Abuse Patient Records regulations: The Federal rules restrict any use of the information to criminally investigate or prosecute any alcohol or drug abuse patient.[facility] RehabilitationIn the event this information is protected by the Federal Confidentiality of Alcohol and Drug Abuse Patient Records regulations: The Federal rules restrict any use of the information to criminally investigate or prosecute any alcohol or drug abuse patient.[facility] RehabilitationIn the event this information is protected by the Federal Confidentiality of Alcohol and Drug Abuse Patient Records regulations: The Federal rules restrict any use of the information to criminally investigate or prosecute any alcohol or drug abuse patient.[facility] RehabilitationIn the event this information is protected by the Federal Confidentiality of Alcohol and Drug Abuse Patient Records regulations: The Federal rules restrict any use of the information to criminally investigate or prosecute any alcohol or drug abuse patient.[facility] RehabilitationIn the event this information is protected by the Federal Confidentiality of Alcohol and Drug Abuse Patient Records regulations: The Federal rules restrict any use of the information to criminally investigate or prosecute any alcohol or drug abuse patient.[facility] RehabilitationIn the event this information is protected by the Federal Confidentiality of Alcohol and Drug Abuse Patient Records regulations: The Federal rules restrict any use of the information to criminally investigate or prosecute any alcohol or drug abuse patient.[facility] RehabilitationIn the event this information is protected by the Federal Confidentiality of Alcohol and Drug Abuse Patient Records regulations: The Federal rules restrict any use of the information to criminally investigate or prosecute any alcohol or drug abuse patient.[facility] RehabilitationIn the event this information is protected by the Federal Confidentiality of Alcohol and Drug Abuse Patient Records regulations: The Federal rules restrict any use of the information to criminally investigate or prosecute any alcohol or drug abuse patient.[facility] RehabilitationIn the event this information is protected by the Federal Confidentiality of Alcohol and Drug Abuse Patient Records regulations: The Federal rules restrict any use of the information to criminally investigate or prosecute any alcohol or drug abuse patient.[facility] RehabilitationIn the event this information is protected by the Federal Confidentiality of Alcohol and Drug Abuse Patient Records regulations: The Federal rules restrict any use of the information to criminally investigate or prosecute any alcohol or drug abuse patient.[facility] RehabilitationIn the event this information is protected by the Federal Confidentiality of Alcohol and Drug Abuse Patient Records regulations: The Federal rules restrict any use of the information to criminally investigate or prosecute any alcohol or drug abuse patient.[facility] RehabilitationIn the event this information is protected by the Federal Confidentiality of Alcohol and Drug Abuse Patient Records regulations: The Federal rules restrict any use of the information to criminally investigate or prosecute any alcohol or drug abuse patient.[facility] RehabilitationIn the event this information is protected by the Federal Confidentiality of Alcohol and Drug Abuse Patient Records regulations: The Federal rules restrict any use of the information to criminally investigate or prosecute any alcohol or drug abuse patient.[facility] RehabilitationIn the event this information is protected by the Federal Confidentiality of Alcohol and Drug Abuse Patient Records regulations: The Federal rules restrict any use of the information to criminally investigate or prosecute any alcohol or drug abuse patient.[facility] RehabilitationIn the event this information is protected by the Federal Confidentiality of Alcohol and Drug Abuse Patient Records regulations: The Federal rules restrict any use of the information to criminally investigate or prosecute any alcohol or drug abuse patient.[facility] RehabilitationIn the event this information is protected by the Federal Confidentiality of Alcohol and Drug Abuse Patient Records regulations: The Federal rules restrict any use of the information to criminally investigate or prosecute any alcohol or drug abuse patient.[facility] RehabilitationIn the event this information is protected by the Federal Confidentiality of Alcohol and Drug Abuse Patient Records regulations: The Federal rules restrict any use of the information to criminally investigate or prosecute any alcohol or drug abuse patient.[facility] RehabilitationIn the event this information is protected by the Federal Confidentiality of Alcohol and Drug Abuse Patient Records regulations: The Federal rules restrict any use of the information to criminally investigate or prosecute any alcohol or drug abuse patient.[facility] RehabilitationIn the event this information is protected by the Federal Confidentiality of Alcohol and Drug Abuse Patient Records regulations: The Federal rules restrict any use of the information to criminally investigate or prosecute any alcohol or drug abuse patient.[facility] RehabilitationIn the event this information is protected by the Federal Confidentiality of Alcohol and Drug Abuse Patient Records regulations: The Federal rules restrict any use of the information to criminally investigate or prosecute any alcohol or drug abuse patient.[facility] RehabilitationIn the event this information is protected by the Federal Confidentiality of Alcohol and Drug Abuse Patient Records regulations: The Federal rules restrict any use of the information to criminally investigate or prosecute any alcohol or drug abuse patient.[facility] RehabilitationIn the event this information is protected by the Federal Confidentiality of Alcohol and Drug Abuse Patient Records regulations: The Federal rules restrict any use of the information to criminally investigate or prosecute any alcohol or drug abuse patient.[facility] RehabilitationIn the event this information is protected by the Federal Confidentiality of Alcohol and Drug Abuse Patient Records regulations: The Federal rules restrict any use of the information to criminally investigate or prosecute any alcohol or drug abuse patient.[facility] RehabilitationIn the event this information is protected by the Federal Confidentiality of Alcohol and Drug Abuse Patient Records regulations: The Federal rules restrict any use of the information to criminally investigate or prosecute any alcohol or drug abuse patient.[facility] RehabilitationIn the event this information is protected by the Federal Confidentiality of Alcohol and Drug Abuse Patient Records regulations: The Federal rules restrict any use of the information to criminally investigate or prosecute any alcohol or drug abuse patient.[facility] RehabilitationIn the event this information is protected by the Federal Confidentiality of Alcohol and Drug Abuse Patient Records regulations: The Federal rules restrict any use of the information to criminally investigate or prosecute any alcohol or drug abuse patient.[facility] RehabilitationIn the event this information is protected by the Federal Confidentiality of Alcohol and Drug Abuse Patient Records regulations: The Federal rules restrict any use of the information to criminally investigate or prosecute any alcohol or drug abuse patient.[facility] RehabilitationIn the event this information is protected by the Federal Confidentiality of Alcohol and Drug Abuse Patient Records regulations: The Federal rules restrict any use of the information to criminally investigate or prosecute any alcohol or drug abuse patient.[facility] RehabilitationIn the event this information is protected by the Federal Confidentiality of Alcohol and Drug Abuse Patient Records regulations: The Federal rules restrict any use of the information to criminally investigate or prosecute any alcohol or drug abuse patient.[facility] RehabilitationIn the event this information is protected by the Federal Confidentiality of Alcohol and Drug Abuse Patient Records regulations: The Federal rules restrict any use of the information to criminally investigate or prosecute any alcohol or drug abuse patient.[facility] RehabilitationIn the event this information is protected by the Federal Confidentiality of Alcohol and Drug Abuse Patient Records regulations: The Federal rules restrict any use of the information to criminally investigate or prosecute any alcohol or drug abuse patient.[facility] RehabilitationIn the event this information is protected by the Federal Confidentiality of Alcohol and Drug Abuse Patient Records regulations: The Federal rules restrict any use of the information to criminally investigate or prosecute any alcohol or drug abuse patient.[facility] RehabilitationIn the event this information is protected by the Federal Confidentiality of Alcohol and Drug Abuse Patient Records regulations: The Federal rules restrict any use of the information to criminally investigate or prosecute any alcohol or drug abuse patient.[facility] RehabilitationIn the event this information is protected by the Federal Confidentiality of Alcohol and Drug Abuse Patient Records regulations: The Federal rules restrict any use of the information to criminally investigate or prosecute any alcohol or drug abuse patient.[facility] RehabilitationIn the event this information is protected by the Federal Confidentiality of Alcohol and Drug Abuse Patient Records regulations: The Federal rules restrict any use of the information to criminally investigate or prosecute any alcohol or drug abuse patient.[facility] RehabilitationIn the event this information is protected by the Federal Confidentiality of Alcohol and Drug Abuse Patient Records regulations: The Federal rules restrict any use of the information to criminally investigate or prosecute any alcohol or drug abuse patient.[facility] RehabilitationIn the event this information is protected by the Federal Confidentiality of Alcohol and Drug Abuse Patient Records regulations: The Federal rules restrict any use of the information to criminally investigate or prosecute any alcohol or drug abuse patient.[facility] RehabilitationIn the event this information is protected by the Federal Confidentiality of Alcohol and Drug Abuse Patient Records regulations: The Federal rules restrict any use of the information to criminally investigate or prosecute any alcohol or drug abuse patient.[facility] RehabilitationIn the event this information is protected by the Federal Confidentiality of Alcohol and Drug Abuse Patient Records regulations: The Federal rules restrict any use of the information to criminally investigate or prosecute any alcohol or drug abuse patient.[facility] RehabilitationIn the event this information is protected by the Federal Confidentiality of Alcohol and Drug Abuse Patient Records regulations: The Federal rules restrict any use of the information to criminally investigate or prosecute any alcohol or drug abuse patient.[facility] RehabilitationIn the event this information is protected by the Federal Confidentiality of Alcohol and Drug Abuse Patient Records regulations: The Federal rules restrict any use of the information to criminally investigate or prosecute any alcohol or drug abuse patient.[facility] RehabilitationIn the event this information is protected by the Federal Confidentiality of Alcohol and Drug Abuse Patient Records regulations: The Federal rules restrict any use of the information to criminally investigate or prosecute any alcohol or drug abuse patient.[facility] RehabilitationIn the event this information is protected by the Federal Confidentiality of Alcohol and Drug Abuse Patient Records regulations: The Federal rules restrict any use of the information to criminally investigate or prosecute any alcohol or drug abuse patient.[facility] RehabilitationIn the event this information is protected by the Federal Confidentiality of Alcohol and Drug Abuse Patient Records regulations: The Federal rules restrict any use of the information to criminally investigate or prosecute any alcohol or drug abuse patient.[facility] RehabilitationIn the event this information is protected by the Federal Confidentiality of Alcohol and Drug Abuse Patient Records regulations: The Federal rules restrict any use of the information to criminally investigate or prosecute any alcohol or drug abuse patient.[facility] RehabilitationIn the event this information is protected by the Federal Confidentiality of Alcohol and Drug Abuse Patient Records regulations: The Federal rules restrict any use of the information to criminally investigate or prosecute any alcohol or drug abuse patient.[facility] RehabilitationIn the event this information is protected by the Federal Confidentiality of Alcohol and Drug Abuse Patient Records regulations: The Federal rules restrict any use of the information to criminally investigate or prosecute any alcohol or drug abuse patient.[facility] RehabilitationIn the event this information is protected by the Federal Confidentiality of Alcohol and Drug Abuse Patient Records regulations: The Federal rules restrict any use of the information to criminally investigate or prosecute any alcohol or drug abuse patient.[facility] RehabilitationIn the event this information is protected by the Federal Confidentiality of Alcohol and Drug Abuse Patient Records regulations: The Federal rules restrict any use of the information to criminally investigate or prosecute any alcohol or drug abuse patient.[facility] RehabilitationIn the event this information is protected by the Federal Confidentiality of Alcohol and Drug Abuse Patient Records regulations: The Federal rules restrict any use of the information to criminally investigate or prosecute any alcohol or drug abuse patient.[facility] RehabilitationIn the event this information is protected by the Federal Confidentiality of Alcohol and Drug Abuse Patient Records regulations: The Federal rules restrict any use of the information to criminally investigate or prosecute any alcohol or drug abuse patient.[facility] RehabilitationIn the event this information is protected by the Federal Confidentiality of Alcohol and Drug Abuse Patient Records regulations: The Federal rules restrict any use of the information to criminally investigate or prosecute any alcohol or drug abuse patient.[facility] RehabilitationIn the event this information is protected by the Federal Confidentiality of Alcohol and Drug Abuse Patient Records regulations: The Federal rules restrict any use of the information to criminally investigate or prosecute any alcohol or drug abuse patient.[facility] RehabilitationIn the event this information is protected by the Federal Confidentiality of Alcohol and Drug Abuse Patient Records regulations: The Federal rules restrict any use of the information to criminally investigate or prosecute any alcohol or drug abuse patient.[facility] RehabilitationIn the event this information is protected by the Federal Confidentiality of Alcohol and Drug Abuse Patient Records regulations: The Federal rules restrict any use of the information to criminally investigate or prosecute any alcohol or drug abuse patient.[facility] RehabilitationIn the event this information is protected by the Federal Confidentiality of Alcohol and Drug Abuse Patient Records regulations: The Federal rules restrict any use of the information to criminally investigate or prosecute any alcohol or drug abuse patient.[facility] RehabilitationIn the event this information is protected by the Federal Confidentiality of Alcohol and Drug Abuse Patient Records regulations: The Federal rules restrict any use of the information to criminally investigate or prosecute any alcohol or drug abuse patient.[facility] RehabilitationIn the event this information is protected by the Federal Confidentiality of Alcohol and Drug Abuse Patient Records regulations: The Federal rules restrict any use of the information to criminally investigate or prosecute any alcohol or drug abuse patient.[facility] RehabilitationIn the event this information is protected by the Federal Confidentiality of Alcohol and Drug Abuse Patient Records regulations: The Federal rules restrict any use of the information to criminally investigate or prosecute any alcohol or drug abuse patient.[facility] RehabilitationIn the event this information is protected by the Federal Confidentiality of Alcohol and Drug Abuse Patient Records regulations: The Federal rules restrict any use of the information to criminally investigate or prosecute any alcohol or drug abuse patient.[facility] RehabilitationIn the event this information is protected by the Federal Confidentiality of Alcohol and Drug Abuse Patient Records regulations: The Federal rules restrict any use of the information to criminally investigate or prosecute any alcohol or drug abuse patient.[facility] RehabilitationIn the event this information is protected by the Federal Confidentiality of Alcohol and Drug Abuse Patient Records regulations: The Federal rules restrict any use of the information to criminally investigate or prosecute any alcohol or drug abuse patient.[facility] RehabilitationIn the event this information is protected by the Federal Confidentiality of Alcohol and Drug Abuse Patient Records regulations: The Federal rules restrict any use of the information to criminally investigate or prosecute any alcohol or drug abuse patient.[facility] RehabilitationIn the event this information is protected by the Federal Confidentiality of Alcohol and Drug Abuse Patient Records regulations: The Federal rules restrict any use of the information to criminally investigate or prosecute any alcohol or drug abuse patient.[facility] RehabilitationIn the event this information is protected by the Federal Confidentiality of Alcohol and Drug Abuse Patient Records regulations: The Federal rules restrict any use of the information to criminally investigate or prosecute any alcohol or drug abuse patient.[facility] RehabilitationIn the event this information is protected by the Federal Confidentiality of Alcohol and Drug Abuse Patient Records regulations: The Federal rules restrict any use of the information to criminally investigate or prosecute any alcohol or drug abuse patient.[facility] RehabilitationIn the event this information is protected by the Federal Confidentiality of Alcohol and Drug Abuse Patient Records regulations: The Federal rules restrict any use of the information to criminally investigate or prosecute any alcohol or drug abuse patient.[facility] RehabilitationIn the event this information is protected by the Federal Confidentiality of Alcohol and Drug Abuse Patient Records regulations: The Federal rules restrict any use of the information to criminally investigate or prosecute any alcohol or drug abuse patient.[facility] RehabilitationIn the event this information is protected by the Federal Confidentiality of Alcohol and Drug Abuse Patient Records regulations: The Federal rules restrict any use of the information to criminally investigate or prosecute any alcohol or drug abuse patient.[facility] RehabilitationIn the event this information is protected by the Federal Confidentiality of Alcohol and Drug Abuse Patient Records regulations: The Federal rules restrict any use of the information to criminally investigate or prosecute any alcohol or drug abuse patient.[facility] RehabilitationIn the event this information is protected by the Federal Confidentiality of Alcohol and Drug Abuse Patient Records regulations: The Federal rules restrict any use of the information to criminally investigate or prosecute any alcohol or drug abuse patient.[facility] RehabilitationIn the event this information is protected by the Federal Confidentiality of Alcohol and Drug Abuse Patient Records regulations: The Federal rules restrict any use of the information to criminally investigate or prosecute any alcohol or drug abuse patient.[facility] RehabilitationIn the event this information is protected by the Federal Confidentiality of Alcohol and Drug Abuse Patient Records regulations: The Federal rules restrict any use of the information to criminally investigate or prosecute any alcohol or drug abuse patient.[facility] RehabilitationIn the event this information is protected by the Federal Confidentiality of Alcohol and Drug Abuse Patient Records regulations: The Federal rules restrict any use of the information to criminally investigate or prosecute any alcohol or drug abuse patient.[facility] RehabilitationIn the event this information is protected by the Federal Confidentiality of Alcohol and Drug Abuse Patient Records regulations: The Federal rules restrict any use of the information to criminally investigate or prosecute any alcohol or drug abuse patient.[facility] RehabilitationIn the event this information is protected by the Federal Confidentiality of Alcohol and Drug Abuse Patient Records regulations: The Federal rules restrict any use of the information to criminally investigate or prosecute any alcohol or drug abuse patient.[facility] Reason for Visit (unrecogniz ed section and [...] Ganglion cyst Procedures CONSULT TO ORTHOPAEDICS OFFICE/OUTPATIENT [facility] 60-74 MINUTES Leslye Winter PA-C [address] [place] [address] Referral ID Status Reason Start Date Expiration Date Visits Requested Visits Authorized [id number] Pending Review PCP Requested Referral 03/22/2022 03/22/2023 [...] Refill Request 11/08/2022 Reason Onset Date Comments [facility] 11/24/2022 Telephonic outre ach Reason Onset Date Comments [facility] 11/25/2022 Telephonic outre ach Reason Onset Date Comments Population Health Navigation Outreach 11/29/2022 [employer] Care Gaps Reason Comments Appointment Reason Onset Date Comments [facility] 12/21/2022 Telephonic outre ach Reason Comments Follow Up Reason Comments ER F/U Reason Onset Date Comments [facility] 01/17/2023 Telephonic outre ach Reason Onset Date Comments [facility] Health Navigation Outreach 01/25/2023 [employer] Care Gaps [...] Date Comments Community Monitoring Outreach 05/18/2023 CD M Telephonic Outreach Reason Onset Date Comments Refill [...] Referred By Bryanna t Referred To Contact US IMAGING Diagnoses Ex-smoker Encounter for abdominal aortic aneurysm (AAA) screening Procedures US SCREENING FOR AAA (2017) US ABDOMINAL AORTA REAL TIME SCREEN STUDY AAA Ovidio Vincent MD [address] [place] [address] [place] [address] Referral ID Status Reason Start Date Expiration Date V isits Requested Visits Authorized [id number] Closed Auto-Generate d Referral 12/16/2022 01/15/2024 1 1 Reason Onset Date Comments Community Monitoring Outreach 07/25/2023 Te lephonic Outreach CDM Home Monitoring Reason Onset Date Comments Community Monitoring Outreach 07/26/2023 2n d attempt Telephonic Outreach CDM Home Monitoring Reason Onset Date Comments Refill Request 07/26/[address] Specialty Diagnoses / Procedures Referred By Bryanna t Referred To Contact CT IMAGING Diagnoses Lung nodules Procedures CT CHEST WO IVCON DIAGNOSTIC COMPUTED TOMOGRAPHY THORAX W/O CNTBEART Loretta Leon PA-C [address] [place] [address] [place] [address] Referral ID Status Reason Start Date Expiration Date V isits Requested Visits Authorized [id number] Closed Auto-Generate d Referral 07/12/2023 08/10/2024 1 [...] Referred By Bryanna segura Referred To Contact MR IMAGING Diagnoses Vertigo Procedures MRI BRAIN WO IVCON MRI BRAIN BRAIN STEM W/O CONTRAST MATERIAL Ovidio Vincent MD [address] [place] [address] [place] [address] Referral ID Status Reason Start Date Expiration Date V isits Requested Visits Authorized [id number] Closed Auto-Generate d Referral 04/16/2024 05/16/2025 1 1 Reason Onset Date Comments Community Monitoring Outreach 06/13/2024 Te lephonic Outreach CDM Home Monitoring Reason Onset Date Comments Community Monitoring Outreach 06/27/2024 2n d attempt Telephonic Outreach CDM Home Monitoring Reason Comments Diabetic Foot Care Diabetic Foot Check Specialty Diagnoses / Procedures Referred By Bryanna segura Referred To Contact Podiatry Diagnoses Type 2 diabetes mellitus without complication, without long-term current use of insulin (HCC) Foot callus Procedures CONSULT TO PODIATRY OFFICE/OUTPATIENT [facility] MDM 60 MINUTES Ovidio Vincent MD [address] [place] [address] Referral ID Status Reason Start Date Expiration Date V isits Requested Visits Authorized [id number] Closed PCP Requested Referral 05/30/2024 05/30/2025 1 1 Reason Onset Date Comments Refill Request 07/11/2024 Reason Onset Date Comments Community Monitoring Outreach 07/11/2024 3r d attempt this sequence Telephonic Outreach CDM Home Monitoring Reason Onset Date Comments Refill Request 09/03/2024 Reason Onset Date Comments Population Health Navigation Outreach 09/30/2024 Chelsi Grider PCSA Reason Onset Date Comments Refill Request 10/02/2024 Reason Onset Date Comments Refill Request 11/19/2024 Reason Onset Date Comments Refill Request 11/30/2024 Reason Comments Outside Ortho Reason Onset Date Comments Refill Request 12/11/2024 Reason Comments Follow Up Diabetic Foot Care Nail Care Reason Onset Date Comments Refill Request 01/16/2025 Reason Comments Patient Update Medical Clearance fr om [facility] Reason Comments Outside [id number] Ordered Care Teams (unrecognized sec tion and content) Mechanical Maintenance Technician Relationship Specialty Start Date End Date Ovidio Vincent MD [address] [place], [place] [id number] PCP - General Family Practice 03/16/21 Becky Leija MD, MD [address] [place], [place] [id number] Physician Radiation Oncology 11/24/17 Lola Apple RN Specialty Front Desk Host Oncology 12/08/17 Tato Castro [address] [place] [address] [phone] Pain Management Anesthesiology 01/30/18 Santos Woods MD [address] [address] Physician Blood and Marrow Transplant 05/04/18 Fidel De La Garza MD [address] [place], [place] [phone] Consulting Hematology/Oncology 05/15/18 Halima Cohen ([place]), [place] [address] [place] [address] Specialty Front Desk Host HOSPICE & PALLIATIVE MEDICINE 05/15/18 Nargis Ortega, law office managerManager Cardiovascular 05/27/21 Mechanical Maintenance Technician Relationship Specialty Start Date End Date Ovidio Vincent MD [address] [place], [place] [id number] PCP - General Family Practice 03/16/21 Becky Leija MD, MD [address] [place] [address] Physician Radiation Oncology 11/24/17 Lola Apple, RN Specialty Front Desk Host Oncology 12/08/17 Tato Castro [address] [place] [address] Pain Management Anesthesiology 01/30/18 Santos Woods MD [address] [address] Physician Blood and Marrow Transplant 05/04/18 Fidel De La Garza MD [address] [place] [address] Consulting Hematology/Oncology 05/15/18 Halima [place] ([place]), [place] [address] [place] [address] Specialty Front Desk Host HOSPICE & PALLIATIVE MEDICINE 05/15/18 Nargis Ortega, law office managerManager Cardiovascular 05/27/21 Mechanical Maintenance Technician Relationship Specialty Start Date End Date Ovidio Vincent MD [address] [place] [address] PCP - General Family Practice 03/16/21 Becky Leija MD, [address] [place] [address] Physician Radiation Oncology 11/24/17 Lola Apple RN Specialty Front Desk Host Oncology 12/08/17 Tato Castro [address] [place], [place] 570199 [address] Pain Management Anesthesiology 01/30/18 Santos Woods MD [address] [address] Physician Blood and Marrow Transplant 05/04/18 Fidel De La Garza MD [address] [place], [place] [phone] Consulting Hematology/Oncology 05/15/18 Halima [place] ([place]), [place] [address] [place], [place] 1983406 Specialty Front Desk Host HOSPICE & PALLIATIVE MEDICINE 05/15/18 Nargis Ortega RN [address] [place], [place] [phone] Manager Cardiovascular 05/27/21 Mechanical Maintenance Technician Relationship Specialty Start Date End Date Ovidio Vincent MD [address] [place], [place] 142421 PCP - General Family Practice 03/16/21 Becky Leija MD, MD [address] [place], [place] 638351 Physician Radiation Oncology 11/24/17 Lola Apple RN Specialty Front Desk Host Oncology 12/08/17 Tato Castro [address] [place] [address] [phone] Pain Management Anesthesiology 01/30/18 Santos Woods MD [address] [address] Physician Blood and Marrow Transplant 05/04/18 Fidel De La Garza MD [address] [place], [place] [phone] Consulting Hematology/Oncology 05/15/18 Halima [place] ([place]), [place] [address] [place], [place] [phone] Specialty Front Desk Host HOSPICE & PALLIATIVE MEDICINE 05/15/18 Nargis Ortega, ALICIA [address] [place] [address] Manager Cardiovascular 05/27/21 Mechanical Maintenance Technician Relationship Specialty Start Date End Date Ovidio Vincent MD [address] [place] [address] PCP - General Family Practice 03/16/21 Becky Leija MD, MD [address] [place] [address] Physician Radiation Oncology 11/24/17 Lola Apple, RN Specialty Front Desk Host Oncology 12/08/17 Tato Castro [address] [place], [place] 324221 Pain Management Anesthesiology 01/30/18 Santos Woods MD [address] [place] [address] Physician Blood and Marrow Transplant 05/04/18 Fidel De La Garza MD [address] [place], [place] [phone] Consulting Hematology/Oncology 05/15/18 Halima [place] ([place]), [place] [address] [place], [place] [phone] Specialty Front Desk Host HOSPICE & PALLIATIVE MEDICINE 05/15/18 Nargis Ortega, RN [address] [place], [place] [phone] Manager Cardiovascular 05/27/21 Mechanical Maintenance Technician Relationship Specialty Start Date End Date Ovidio Vincent MD [address] [place] [address] PCP - General Family Practice 03/16/21 Becky Leija MD, MD [address] [place] [address] Physician Radiation Oncology 11/24/17 Lola Apple, RN Specialty Front Desk Host Oncology 12/08/17 Tato Castro [address] [place], [place] [phone] Pain Management Anesthesiology 01/30/18 Santos Woods MD [address] [address] Physician Blood and Marrow Transplant 05/04/18 Fidel De La Garza MD [address] [place] [address] Consulting Hematology/Oncology 05/15/18 Halima [place] ([place]), [place] [address] [place], [place] 8098406 Specialty Front Desk Host HOSPICE & PALLIATIVE MEDICINE 05/15/18 Nargis Ortega, RN [address] [place] [address] Manager Cardiovascular 05/27/21 Mechanical Maintenance Technician Relationship Specialty Start Date End Date Ovidio Vincent MD [address] [place], [place] [id number] PCP - General Family Practice 03/16/21 Becky Leija MD, [address] [place] [address] Physician Radiation Oncology 11/24/17 Lola Apple RN Specialty Front Desk Host Oncology 12/08/17 Tato Castro [address] [place] [address] [phone] Pain Management Anesthesiology 01/30/18 Santos Woods MD [address] [address] Physician Blood and Marrow Transplant 05/04/18 Fidel De La Garza MD [address] [facility] [place] [address] Consulting Hematology/Oncology 05/15/18 Halima [place] ([place]), [place] [address] [place], [place] 8110606 Specialty Front Desk Host HOSPICE & PALLIATIVE MEDICINE 05/15/18 Nargis Ortega RN [address] [place], [place] [phone] Manager Cardiovascular 05/27/21 Mechanical Maintenance Technician Relationship Specialty Start Date End Date Ovidio Vincent MD [address] [place], [place] 783101 PCP - General Family Practice 03/16/21 Becky Leija MD, [address] [place], [place] 172061 Physician Radiation Oncology 11/24/17 Lola Apple, RN Specialty Front Desk Host Oncology 12/08/17 Tato Castro [address] [place] [address] [phone] Pain Management Anesthesiology 01/30/18 Santos Woods MD [address] [place] [address] Physician Blood and Marrow Transplant 05/04/18 Fidel De La Garza MD [address] [place], [place] 5298195 Consulting Hematology/Oncology 05/15/18 Halima [place] ([place]), [place] [address] [place], [place] [phone] Specialty Front Desk Host HOSPICE & PALLIATIVE MEDICINE 05/15/18 Nargis Ortega RN [address] [place] [address] Manager Cardiovascular 05/27/21 Mechanical Maintenance Technician Relationship Specialty Start Date End Date Ovidio Vincent MD [address] [place], [place] [id number] PCP - General Family Practice 03/16/21 Becky Leija MD, [address] [place] [address] Physician Radiation Oncology 11/24/17 Doup, Lola, RN Specialty Front Desk Host Oncology 12/08/17 Tato Castro [address] [place], [place] [phone] Pain Management Anesthesiology 01/30/18 Santos Woods MD [address] [id number] Physician Blood and Marrow Transplant 05/04/18 Fidel De La Garza MD [address] [place], [place] [phone] Consulting Hematology/Oncology 05/15/18 Halima [place] ([place]), [place] [address] [place], [place] [phone] Specialty Front Desk Host HOSPICE & PALLIATIVE MEDICINE 05/15/18 Nargis Ortega RN [address] [place] [address] Manager Cardiovascular 05/27/21 Mechanical Maintenance Technician Relationship Specialty Start Date End Date Ovidio Vincent MD [address] [place] [address] PCP - General Family Practice 03/16/21 Becky eLija MD, MD [address] [place] [address] Physician Radiation Oncology 11/24/17 Lola Apple RN Specialty Front Desk Host Oncology 12/08/17 Tato Castro [address] [place], [place] [phone] Pain Management Anesthesiology 01/30/18 Santos Woods MD [address] 0738095 Physician Blood and Marrow Transplant 05/04/18 Fidel De La Garza MD [address] [place] [address] Consulting Hematology/Oncology 05/15/18 Hal[place] ([place]), [place] [address] [place], [place] 5130206 Specialty Front Desk Host HOSPICE & PALLIATIVE MEDICINE 05/15/18 Nargis Ortega, RN [address] [place] [address] Manager Cardiovascular 05/27/21 Mechanical Maintenance Technician Relationship Specialty Start Date End Date Ovidio Vincent MD [address] [place], [place] 599031 PCP - General Family Practice 03/16/21 Becky Leija MD, [address] [place], [place] 24637691 Physician Radiation Oncology 11/24/17 Lola Apple RN Specialty Front Desk Host Oncology 12/08/17 Tato Castro [address] [place] [address] [phone] Pain Management Anesthesiology 01/30/18 Santos Woods MD [address] [address] Physician Blood and Marrow Transplant 05/04/18 Fidel De La Garza MD [address] [place], [place] [phone] Consulting Hematology/Oncology 05/15/18 Halima [place] ([place]), [place] [address] [place], [place] 4644806 Specialty Front Desk Host HOSPICE & PALLIATIVE MEDICINE 05/15/18 Nargis Ortega, RN [address] [place] [address] Manager Cardiovascular 05/27/21 Mechanical Maintenance Technician Relationship Specialty Start Date End Date Ovidio Vincent MD [address] [place], [place] [id number] PCP - General Family Practice 03/16/21 Becky Leija MD, [address] [place] [address] Physician Radiation Oncology 11/24/17 Lola Apple, RN Specialty Front Desk Host Oncology 12/08/17 Matthew Alinmo Hillman [address] [place], [place] 515291 Pain Management Anesthesiology 01/30/18 Santos Woods MD [address] [id number] Physician Blood and Marrow Transplant 05/04/18 Fidel De La Garza MD [address] [place], [place] [phone] Consulting Hematology/Oncology 05/15/18 Halima [place] ([place]), [place] [address] [place], [place] [phone] Specialty Front Desk Host HOSPICE & PALLIATIVE MEDICINE 05/15/18 Nargis Ortega, RN [address] [place], [place] [phone] Manager Cardiovascular 05/27/21 Mechanical Maintenance Technician Relationship Specialty Start Date End Date Ovidio Vincent MD [address] [place] [address] PCP - General Family Practice 03/16/21 Becky Leija MD, [address] [place] [address] Physician Radiation Oncology 11/24/17 Lola Apple, RN Specialty Front Desk Host Oncology 12/08/17 [facility]man [address] [place] [address] Pain Management Anesthesiology 01/30/18 Santos Woods MD [address] 9555295 Physician Blood and Marrow Transplant 05/04/18 Fidel De La Garza MD [address] [place] [address] Consulting Hematology/Oncology 05/15/18 Hal[place] ([place]), [place] [address] [place], [place] 0994206 Specialty Front Desk Host HOSPICE & PALLIATIVE MEDICINE 05/15/18 Nargis Ortega RN [address] [place], [place] [phone] Manager Cardiovascular 05/27/21 Mechanical Maintenance Technician Relationship Specialty Start Date End Date Ovidio Vincent MD [address] [place], [place] [phone] PCP - General Family Practice 03/16/21 Becky Leija MD, [address] [place], [place] [phone] Physician Radiation Oncology 11/24/17 Lola Apple RN Specialty Front Desk Host Oncology 12/08/17 Tato Castro [address] [place], [place] [phone] Pain Management Anesthesiology 01/30/18 [place] [address] [address] Physician Blood and Marrow Transplant 05/04/18 Fidel De La Garza MD [address] [place] [address] Consulting Hematology/Oncology 05/15/18 Hal[place] ([place]), [place] [address] [place], [place] [phone] Specialty Front Desk Host HOSPICE & PALLIATIVE MEDICINE 05/15/18 Nargis Ortega RN [address] [place] [address] Manager Cardiovascular 05/27/21 Mechanical Maintenance Technician Relationship Specialty Start Date End Date Ovidio Vincent MD [address] [place] [address] PCP - General Family Practice 03/16/21 Becky Leija MD, MD [address] [place] [address] Physician Radiation Oncology 11/24/17 Lola Apple RN Specialty Front Desk Host Oncology 12/08/17 [facility] De La Garza [address] [place], [place] 722641 Pain Management Anesthesiology 01/30/18 Santos Woods MD [address] [place] [address] Physician Blood and Marrow Transplant 05/04/18 Fidel De La Garza MD [address] [place] [address] Consulting Hematology/Oncology 05/15/18 Hal[place] ([place]), [place] [address] [place], [place] [phone] Specialty Front Desk Host HOSPICE & PALLIATIVE MEDICINE 05/15/18 Nargis Ortega, RN [address] [place] [address] Manager Cardiovascular 05/27/21 Mechanical Maintenance Technician Relationship Specialty Start Date End Date Ovidio Vincent MD [address] [place] [address] PCP - General Family Practice 03/16/21 Becky Leija MD, MD [address] [place] [address] Physician Radiation Oncology 11/24/17 Lola Apple RN Specialty Front Desk Host Oncology 12/08/17 [facility] [address] [place], [place] [phone] Pain Management Anesthesiology 01/30/18 Santos Woods MD [address] [phone] Physician Blood and Marrow Transplant 05/04/18 Fidel De La Garza MD [address] [place], [place] 0545795 Consulting Hematology/Oncology 05/15/18 Halima [place] ([place]), [place] [address] [place], [place] 7101306 Specialty Front Desk Host HOSPICE & PALLIATIVE MEDICINE 05/15/18 Nargis Ortega RN [address] [place] [address] Manager Cardiovascular 05/27/21 Mechanical Maintenance Technician Relationship Specialty Start Date End Date Ovidio Vincent MD [address] [place], [place] [id number] PCP - General Family Practice 03/16/21 Becky Leija MD, [address] [place], [place] 80113691 Physician Radiation Oncology 11/24/17 Lola Apple RN Specialty Front Desk Host Oncology 12/08/17 Tato Castro [address] [place] [address] Pain Management Anesthesiology 01/30/18 Santos Woods MD [address] [address] Physician Blood and Marrow Transplant 05/04/18 Fidel De La Garza MD [address] [place], [place] 0389695 Consulting Hematology/Oncology 05/15/18 Hal[place] ([place]), [place] [address] [place] [address] Specialty Front Desk Host HOSPICE & PALLIATIVE MEDICINE 05/15/18 Nargis Ortega, RN [address] [place] [address] Manager Cardiovascular 05/27/21 Mechanical Maintenance Technician Relationship Specialty Start Date End Date Ovidio Vincent MD [address] [place], [place] [phone] PCP - General Family Practice 03/16/21 Becky Leija MD, [address] [facility] [place], [place] 476311 Physician Radiation Oncology 11/24/17 Lola Apple RN Specialty Front Desk Host Oncology 12/08/17 Tato Castro [address] [place] [address] [phone] Pain Management Anesthesiology 01/30/18 Santos Woods MD [address] [address] Physician Blood and Marrow Transplant 05/04/18 Fidel De La Garza MD [address]16 [place] [address] Consulting Hematology/Oncology 05/15/18 Halima Cohen ([place]n), [place] [address] [place] [address] Specialty Front Desk Host HOSPICE & PALLIATIVE MEDICINE 05/15/18 Nargis Ortega, ALICIA [address] [place] [address] Manager Cardiovascular 05/27/21 Mechanical Maintenance Technician Relationship Specialty Start Date End Date Ovidio Vincent MD [address] [place], [place] 160111 PCP - General Family Practice 03/16/21 Becky Leija MD, MD [address] [place] [address] Physician Radiation Oncology 11/24/17 Lola Apple, RN Specialty Front Desk Host Oncology 12/08/17 [facility] [address] [place], [place] 873511 Pain Management Anesthesiology 01/30/18 Santos Woods MD [address] [id number] Physician Blood and Marrow Transplant 05/04/18 Fidel De La Garza MD [address] [place] [address] Consulting Hematology/Oncology 05/15/18 Halima Cohen ([place]n), [place] [address] [place], [place] [id number] Specialty Front Desk Host HOSPICE & PALLIATIVE MEDICINE 05/15/18 Nargis Ortega, RN [address] [place], [place] [id number] Manager Cardiovascular 05/27/21 Mechanical Maintenance Technician Relationship Specialty Start Date End Date Ovidio Vincent MD [address] [place], [place] [id number] PCP - General Family Practice 03/16/21 Becky Leija MD, [address] [place] [address] Physician Radiation Oncology 11/24/17 Lola Apple, RN Specialty Front Desk Host Oncology 12/08/17 04/25/22 Tato Castro [address] [place], [place] [phone] Pain Management Anesthesiology 01/30/18 Santos Woods MD [address] [address] Physician Blood and Marrow Transplant 05/04/18 Fidel De La Garza MD [address] [place] [address] Consulting Hematology/Oncology 05/15/18 Halima [place] ([place]), [place] [address] [place], [place] 0739206 Specialty Front Desk Host HOSPICE & PALLIATIVE MEDICINE 05/15/18 Nargis Ortega RN [address] [place] [address] Manager Cardiovascular 05/27/21 Ela Alvarez MD [address] [place] [address] Hematology/Oncology 04/26/22 Nancie Low RN [address] [place] [address] Specialty Front Desk Host Hematology/Oncology 04/26/22 Mechanical Maintenance Technician Relationship Specialty Start Date End Date Ovidio Vincent MD [address] [place] [address] PCP - General Family Practice 03/16/21 Becky Leija MD, [address] [place] [address] Physician Radiation Oncology 11/24/17 Tato Castro [address] [place] [address] Pain Management Anesthesiology 01/30/18 Santos Woods MD [address] [address] Physician Blood and Marrow Transplant 05/04/18 Fidel De La Garza MD 4782 [place] [address] Consulting Hematology/Oncology 05/15/18 Halima [place] ([place]), [place] [address] [place] [address] Specialty Front Desk Host HOSPICE & PALLIATIVE MEDICINE 05/15/18 Nargis Ortega RN [address] [place] [address] Manager Cardiovascular 05/27/21 Ela Alvarez MD [address] [place] [address] Hematology/Oncology 04/26/22 Nancie Low, ALICIA [address] [place] [address] Specialty Front Desk Host Hematology/Oncology 04/26/22 Mechanical Maintenance Technician Relationship Specialty Start Date End Date Ovidio Vincent MD [address] [place] [address] PCP - General Family Practice 03/16/21 Becky Leija MD, [address] [place] [address] Physician Radiation Oncology 11/24/17 Tato Castro [address] [place], [place] [phone] Pain Management Anesthesiology 01/30/18 Santos Woods MD [address] [address] Physician Blood and Marrow Transplant 05/04/18 Fidel De La Garza MD [address] [place], [place] [phone] Consulting Hematology/Oncology 05/15/18 Halima [place] ([place]), [place] [address] [place], [place] 6478206 Specialty Front Desk Host HOSPICE & PALLIATIVE MEDICINE 05/15/18 Nargis Ortega RN [address] [place] [address] Manager Cardiovascular 05/27/21 Ela Alvarez MD [address] [place] [address] Hematology/Oncology 04/26/22 Nancie Low, ALICIA [address] [place] [address] Specialty Front Desk Host Hematology/Oncology 04/26/22 Mechanical Maintenance Technician Relationship Specialty Start Date End Date Ovidio Vincent MD [address] [place] [address] PCP - General Family Practice 03/16/21 Becky Leija MD, [address] [place] [address] Physician Radiation Oncology 11/24/17 Tato Castro [address] [place], [place] [phone] Pain Management Anesthesiology 01/30/18 Santos Woods MD [address] [address] Physician Blood and Marrow Transplant 05/04/18 Fidel De La Garza MD 0495 [place] [address] Consulting Hematology/Oncology 05/15/18 Hal[place] ([place]), [place] [address] [place], [place] [phone] Specialty Front Desk Host HOSPICE & PALLIATIVE MEDICINE 05/15/18 Nargis Ortega, RN [address] [place] [address] Manager Cardiovascular 05/27/21 Ela Alvarez MD [address] [facility] [place] [address] Hematology/Oncology 04/26/22 DevanteNancie king RN [address] [place] [address] Specialty Front Desk Host Hematology/Oncology 04/26/22 Mechanical Maintenance Technician Relationship Specialty Start Date End Date Ovidio Vincent MD [address] [place] [address] PCP - General Family Practice 03/16/21 Becky Leija MD, [address] [place] [address] Physician Radiation Oncology 11/24/17 Tato Castro [address] [place] [address] [phone] Pain Management Anesthesiology 01/30/18 Santos Woods MD [address] [address] Physician Blood and Marrow Transplant 05/04/18 Fidel De La Garza MD [address] [place] [address] Consulting Hematology/Oncology 05/15/18 Hal[place] ([place]), [place] [address] [place], [place] [phone] Specialty Front Desk Host HOSPICE & PALLIATIVE MEDICINE 05/15/18 Nargis Ortega RN [address] [place], [place] [id number] Manager Cardiovascular 05/27/21 Ela Alvarez MD [address] [place] [address] Hematology/Oncology 04/26/22 Nancie Low RN [address] [place] [address] Specialty Front Desk Host Hematology/Oncology 04/26/22 Mechanical Maintenance Technician Relationship Specialty Start Date End Date Ovidio Vincent MD [address] [place] [address] PCP - General Family Medicine 03/16/21 Becky Leija MD, [address] [place] [address] Physician Radiation Oncology 11/24/17 Tato Castro [address] [place], [place] 542101 Pain Management Anesthesiology 01/30/18 Santos Woods MD [address] [place], [place] [phone] Physician Blood and Marrow Transplant 05/04/18 Fidel De La Garza MD [address] [place], [place] [phone] Consulting Hematology/Oncology 05/15/18 Halima [place] ([place]n), [place] [address] [place], [place] 7696806 Specialty Front Desk Host HOSPICE & PALLIATIVE MEDICINE 05/15/18 Nargis Ortega, RN [address] [place], [place] [phone] Manager Cardiovascular 05/27/21 Ela Alvarez MD [address] [place] [address] Hematology/Oncology 04/26/22 Nancie Low, ALICIA [address] [place] [address] Specialty Front Desk Host Hematology/Oncology 04/26/22 Mechanical Maintenance Technician Relationship Specialty Start Date End Date Ovidio Vincent MD [address] [place] [address] PCP - General Family Medicine 03/16/21 Becky Leija MD, [address] [place] [address] Physician Radiation Oncology 11/24/17 Tato Castro [address] [place], [place] 874551 Pain Management Anesthesiology 01/30/18 Santos Woods MD 4050 [facility] [address] [place], [place] 9927995 Physician Blood and Marrow Transplant 05/04/18 Fidel De La Garza MD [address] [place], [place] 2052195 Consulting Hematology/Oncology 05/15/18 Halima [place] (Rn), [place] [address] [place], [place] [phone] Specialty Front Desk Host HOSPICE & PALLIATIVE MEDICINE 05/15/18 Nargis Ortega RN [address] [place], [place] [id number] Manager Cardiovascular 05/27/21 Ela Alvarez MD [address] [place] [address] Hematology/Oncology 04/26/22 Nancie Low, ALICIA [address] [place] [address] Specialty Front Desk Host Hematology/Oncology 04/26/22 Mechanical Maintenance Technician Relationship Specialty Start Date End Date Ovidio Vincent MD [address] [place] [address] PCP - General Family Medicine 03/16/21 Becky Leija MD, [address] [place] [address] Physician Radiation Oncology 11/24/17 Tato Castro [address] [place], [place] 251181 Pain Management Anesthesiology 01/30/18 Santos Woods MD 1478 [facility] [address] [id number] Physician Blood and Marrow Transplant 05/04/18 Fidel De La Garza MD [address] [place], [place] [phone] Consulting Hematology/Oncology 05/15/18 Halima [place] (Rn), [place] [address] [place] [address] Specialty Front Desk Host HOSPICE & PALLIATIVE MEDICINE 05/15/18 Nargis Ortega RN [address] [place], [place] [phone] Manager Cardiovascular 05/27/21 Ela Alvarez MD [address] [place] [address] Hematology/Oncology 04/26/22 Nancie Low, ALICIA [address] [place] [address] Specialty Front Desk Host Hematology/Oncology 04/26/22 Mechanical Maintenance Technician Relationship Specialty Start Date End Date Ovidio Vincent MD [address] [place] [address] PCP - General Family Medicine 03/16/21 Becky Leija MD, [address] [place] [address] Physician Radiation Oncology 11/24/17 Tato Castro [address] [place], [place] [id number] Pain Management Anesthesiology 01/30/18 Santos Woods MD [address] [place] [address] Physician Blood and Marrow Transplant 05/04/18 Fidel De La Garza MD [address] [place] [address] Consulting Hematology/Oncology 05/15/18 Halima Cohen (Rn), [place] [address] [place], [place] 4327906 Specialty Front Desk Host HOSPICE & PALLIATIVE MEDICINE 05/15/18 Nargis Ortega RN [address] [place], [place] 1656331 Manager Cardiovascular 05/27/21 Ela Alvarez MD [address] [place] [address] Hematology/Oncology 04/26/22 Nancie Low RN [address] [place] [address] Specialty Front Desk Host Hematology/Oncology 04/26/22 Mechanical Maintenance Technician Relationship Specialty Start Date End Date Ovidio Vinecnt MD [address] [place] [address] PCP - General Family Medicine 03/16/21 Becky Leija MD, [address] [place] [address] Physician Radiation Oncology 11/24/17 Tato Castro [address] [place] [address] Pain Management Anesthesiology 01/30/18 Santos Woods MD 4450 [facility] [address] [address] Physician Blood and Marrow Transplant 05/04/18 Fidel De La Garza MD [address] [place] [address] Consulting Hematology/Oncology 05/15/18 Halima [place] ([place] [address] [place], [place] 0120506 Specialty Front Desk Host HOSPICE & PALLIATIVE MEDICINE 05/15/18 Nargis Ortega RN [address] [place], [place] 1598631 Manager Cardiovascular 05/27/21 Ela Alvarez MD [address] [place] [address] Hematology/Oncology 04/26/22 Nancie Low RN [address] [place] [address] Specialty Front Desk Host Hematology/Oncology 04/26/22 Mechanical Maintenance Technician Relationship Specialty Start Date End Date Ovidio Vincent MD [address] [place] [address] PCP - General Family Medicine 03/16/21 Becky Leija MD, [address] [place] [address] Physician Radiation Oncology 11/24/17 Tato Castro [address] [place] [address] Pain Management Anesthesiology 01/30/18 Santos Woods MD [address] [address] Physician Blood and Marrow Transplant 05/04/18 Fidel De La Garza MD [address] [place], [place] 8182995 Consulting Hematology/Oncology 05/15/18 Halima [place] ([place]n), [place] [address] [place], [place] 7267506 Specialty Front Desk Host HOSPICE & PALLIATIVE MEDICINE 05/15/18 Nargis Ortega RN [address] [place] [address] Manager Cardiovascular 05/27/21 Ela Alvarez MD [address] [place], [place] 208991 [phone] Hematology/Oncology 04/26/22 Nancie Low, ALICIA [address] [place] [address] Specialty Front Desk Host Hematology/Oncology 04/26/22 Mechanical Maintenance Technician Relationship Specialty Start Date End Date Ovidio Vincent MD [address] [place] [address] PCP - General Family Medicine 03/16/21 Becky Leija MD, [address] [place] [address] Physician Radiation Oncology 11/24/17 Tato Castro [address] [place], [place] 642331 Pain Management Anesthesiology 01/30/18 Santos Woods MD [address] [place] [address] Physician Blood and Marrow Transplant 05/04/18 Fidel De La Garza MD 0180 [place], [place] [phone] Consulting Hematology/Oncology 05/15/18 Halima Cohen (Rn), [place] [address] [place], [place] 3397206 Specialty Front Desk Host HOSPICE & PALLIATIVE MEDICINE 05/15/18 Nargis Ortega RN [address] [place] [address] Manager Cardiovascular 05/27/21 Ela Alvarez MD [address] [place], [place] 83326871 [phone] Hematology/Oncology 04/26/22 Nancie Low RN [address] [facility] [place] [address] Specialty Front Desk Host Hematology/Oncology 04/26/22 Mechanical Maintenance Technician Relationship Specialty Start Date End Date Ovidio Vincent MD [address] [place] [address] PCP - General Family Medicine 03/16/21 Becky Leija MD, [address] [place] [address] Physician Radiation Oncology 11/24/17 Tato Castro [address] [place] [address] 953511 Pain Management Anesthesiology 01/30/18 Santos Woods MD [address] [address] Physician Blood and Marrow Transplant 05/04/18 Fidel De La Garza MD [address] [place], [place] 7281795 Consulting Hematology/Oncology 05/15/18 Halima [place] (Rn), [place] [address] [place], [place] 9396306 Specialty Front Desk Host HOSPICE & PALLIATIVE MEDICINE 05/15/18 Nargis Ortega, RN [address] [place] [address] Manager Cardiovascular 05/27/21 Ela Alvarez MD [address] [facility] [place] [address] Hematology/Oncology 04/26/22 Nancie Low RN [address] [facility] [place] [address] Specialty Front Desk Host Hematology/Oncology 04/26/22 Mechanical Maintenance Technician Relationship Specialty Start Date End Date Ovidio Vincent MD [address] [place] [address] PCP - General Family Medicine 03/16/21 Becky Leija MD, MD [address] [place] [address] Physician Radiation Oncology 11/24/17 Tato Castro [address] [place] [address] Pain Management Anesthesiology 01/30/18 Santos Woods MD 4038 [facility] [place], [place] 4150695 Physician Blood and Marrow Transplant 05/04/18 Fidel De La Garza MD [address] [place], [place] 9799595 Consulting Hematology/Oncology 05/15/18 Halima Cohen (Rn), [place] [address] [place], [place] 8785006 Specialty Front Desk Host HOSPICE & PALLIATIVE MEDICINE 05/15/18 Nargis Ortega, RN [address] [place], [place] [phone] Manager Cardiovascular 05/27/21 Ela Alvarez MD [address] [place] [address] Hematology/Oncology 04/26/22 Nancie Low, ALICIA [address] [place] [address] Specialty Front Desk Host Hematology/Oncology 04/26/22 Mechanical Maintenance Technician Relationship Specialty Start Date End Date Ovidio Vincent MD [address] [place] [address] PCP - General Family Medicine 03/16/21 Becky Leija MD, MD [address] [place] [address] Physician Radiation Oncology 11/24/17 Tato Castro [address] [place] [address] Pain Management Anesthesiology 01/30/18 Santos Woods MD [address] [place], [place] 1857095 Physician Blood and Marrow Transplant 05/04/18 Fidel De La Garza MD [address] [place], [place] 6588995 Consulting Hematology/Oncology 05/15/18 Halima Cohen (Rn), [place] [address] [place], [place] 1927406 Specialty Front Desk Host HOSPICE & PALLIATIVE MEDICINE 05/15/18 Nargis Ortega, RN [address] [place], [place] [phone] Manager Cardiovascular 05/27/21 Ela Alvarez MD [address] [place] [address] Hematology/Oncology 04/26/22 Nancie Low, ALICIA [address] [place] [address] Specialty Front Desk Host Hematology/Oncology 04/26/22 Mechanical Maintenance Technician Relationship Specialty Start Date End Date Ovidio Vincent MD [address] [place] [address] PCP - General Family Medicine 03/16/21 Becky Leija MD, [address] [place] [address] Physician Radiation Oncology 11/24/17 Tato Castro [address] [place] [address] Pain Management Anesthesiology 01/30/18 Santos Woods MD [address] 8636995 Physician Blood and Marrow Transplant 05/04/18 Fidel De La Garza MD 6264 [place], [place] 9137395 Consulting Hematology/Oncology 05/15/18 Halima Cohen (Rn), RN [address] [place], [place] 7209106 Specialty Front Desk Host HOSPICE & PALLIATIVE MEDICINE 05/15/18 Nargis Ortega, RN [address] [place], [place] 0850731 Manager Cardiovascular 05/27/21 Ela Alvarez MD [address] [place] [address] Hematology/Oncology 04/26/22 Nancie Low RN [address] [place] [address] Specialty Front Desk Host Hematology/Oncology 04/26/22 Mechanical Maintenance Technician Relationship Specialty Start Date End Date Ovidio Vincent MD [address] [place] [address] PCP - General Family Medicine 03/16/21 Becky Leija MD, [address] [facility] [place] [address] Physician Radiation Oncology 11/24/17 Tato Castro [address] [place], [place] [phone] Pain Management Anesthesiology 01/30/18 Santos Woods MD [address] [place], [place] 0728395 Physician Blood and Marrow Transplant 05/04/18 Fidel De La Garza MD 7344 [facility] [place] [place] [address] Consulting Hematology/Oncology 05/15/18 Halima Cohen (Rn), RN [address] [address] [place], [place] 7538906 Specialty Front Desk Host HOSPICE & PALLIATIVE MEDICINE 05/15/18 Nargis Ortega, RN [address] [place], [place] 6678231 Manager Cardiovascular 05/27/21 Ela Alvarez MD [address] [place] [address] Hematology/Oncology 04/26/22 Nancie Low RN [address] [place] [address] Specialty Front Desk Host Hematology/Oncology 04/26/22 Mechanical Maintenance Technician Relationship Specialty Start Date End Date Ovidio Vincent MD [address] [place] [address] PCP - General Family Medicine 03/16/21 Becky Leija MD, [address] [place] [address] Physician Radiation Oncology 11/24/17 Tato Castro [address] [place] [address] Pain Management Anesthesiology 01/30/18 Santos Woods MD [address] [address] Physician Blood and Marrow Transplant 05/04/18 Fidel De La Garza MD [address] [place] [address] Consulting Hematology/Oncology 05/15/18 Halima [place] ([place]n), [place] [address] [place], [place] 9183206 Specialty Front Desk Host HOSPICE & PALLIATIVE MEDICINE 05/15/18 Nargis Ortega RN [address] [place], [place] 1087331 Manager Cardiovascular 05/27/21 Ela Alvarez MD [address] [place] [address] Hematology/Oncology 04/26/22 Nancie Low RN [address] [place] [address] Specialty Front Desk Host Hematology/Oncology 04/26/22 Mechanical Maintenance Technician Relationship Specialty Start Date End Date Ovidio Vincent MD [address] [place] [address] PCP - General Family Medicine 03/16/21 Becky Leija MD, [address] [place] [address] Physician Radiation Oncology 11/24/17 Tato Castro [address] [place] [address] Pain Management Anesthesiology 01/30/18 Santos Woods MD [address] [address] Physician Blood and Marrow Transplant 05/04/18 Fidel De La Garza MD 3113 [facility] [place] [address] Consulting Hematology/Oncology 05/15/18 Halima Cohen ([place]), [place] [address] [place], [place] 5629306 Specialty Front Desk Host HOSPICE & PALLIATIVE MEDICINE 05/15/18 Nargis Ortega RN [address] [place] [address] Manager Cardiovascular 05/27/21 Ela Alvarez MD [address] [place] [address] Hematology/Oncology 04/26/22 Nancie Low RN [address] [place] [address] Specialty Front Desk Host Hematology/Oncology 04/26/22 Mechanical Maintenance Technician Relationship Specialty Start Date End Date Ovidio Vincent MD [address] [place] [address] PCP - General Family Medicine 03/16/21 Becky Leija MD, [address] [place] [address] Physician Radiation Oncology 11/24/17 Tato Castro [address] [place], [place] 562241 Pain Management Anesthesiology 01/30/18 Santos Woods MD [address] [address] Physician Blood and Marrow Transplant 05/04/18 Fidel De La Garza MD 9127 [facility] [place] [address] Consulting Hematology/Oncology 05/15/18 Halima Cohen (Rn), [place] [address] [place], [place] 1940506 Specialty Front Desk Host HOSPICE & PALLIATIVE MEDICINE 05/15/18 Nargis Ortega RN [address] [place] [address] Manager Cardiovascular 05/27/21 Ela Alvarez MD [address] [place] [address] Hematology/Oncology 04/26/22 Nancie Low RN [address] [place] [address] Specialty Front Desk Host Hematology/Oncology 04/26/22 Mechanical Maintenance Technician Relationship Specialty Start Date End Date Ovidio Vincent MD [address] [place] [address] PCP - General Family Medicine 03/16/21 Becky Leija MD, [address] [place] [address] Physician Radiation Oncology 11/24/17 Tato Castro [address] [place] [address] Pain Management Anesthesiology 01/30/18 Santos Woods MD 1629 [facility] [address] 8032295 Physician Blood and Marrow Transplant 05/04/18 Fidel De La Garza MD [address] [place], [place] 5523695 Consulting Hematology/Oncology 05/15/18 Halima Cohen (Rn), [place] [address] [place], [place] 5633006 Specialty Front Desk Host HOSPICE & PALLIATIVE MEDICINE 05/15/18 Ela Alvarez MD [address] [place] [address] Hematology/Oncology 04/26/22 Nancie Low RN [address] [place] [address] Specialty Front Desk Host Hematology/Oncology 04/26/22 Mara Guardado, law office managerManager Cardiovascular 10/21/22 Mechanical Maintenance Technician Relationship Specialty Start Date End Date Ovidio Vincent MD [address] [place] [address] PCP - General Family Medicine 03/16/21 Becky Leija MD, [address] [place] [address] Physician Radiation Oncology 11/24/17 Tato Castro [address] [place] [address] 564301 Pain Management Anesthesiology 01/30/18 Santos Woods MD [address] [facility]5 [place], [place] 5249795 Physician Blood and Marrow Transplant 05/04/18 Fidel De La Garza MD [address] [place] [address] Consulting Hematology/Oncology 05/15/18 Halima Cohen ([place]), [place] [address] [place] [address] Specialty Front Desk Host HOSPICE & PALLIATIVE MEDICINE 05/15/18 Ela Alvarez MD [address] [place] [address] Hematology/Oncology 04/26/22 Nancie Low, ALICIA [address] [place] [address] Specialty Front Desk Host Hematology/Oncology 04/26/22 Mara Guardado, law office managerManager Cardiovascular 10/21/22 Mechanical Maintenance Technician Relationship Specialty Start Date End Date Ovidio Vincent MD [address] [place] [address] PCP - General Family Medicine 03/16/21 Becky Leija MD, [address] [place] [address] Physician Radiation Oncology 11/24/17 Tato Castro [address] [place], [place] 459991 Pain Management Anesthesiology 01/30/18 Santos Woods MD [address] [id number] Physician Blood and Marrow Transplant 05/04/18 Fidel De La Garza MD [address] [place], [place] 6523295 Consulting Hematology/Oncology 05/15/18 Halima Cohen (Rn), [place] [address] [place], [place] 2668506 Specialty Front Desk Host HOSPICE & PALLIATIVE MEDICINE 05/15/18 Ela Alvarez MD [address] [place] [address] Hematology/Oncology 04/26/22 Nancie Low, ALICIA [address] [facility] [place] [address] Specialty Front Desk Host Hematology/Oncology 04/26/22 Mara Guardado, law office managerManager Cardiovascular 10/21/22 Mechanical Maintenance Technician Relationship Specialty Start Date End Date Ovidio Vincent MD [address] [place] [address] PCP - General Family Medicine 03/16/21 Becky Leija MD, [address] [facility] [place] [address] Physician Radiation Oncology 11/24/17 Tato Castro [address] [place] [address] Pain Management Anesthesiology 01/30/18 Santos Woods MD [address] 2350295 Physician Blood and Marrow Transplant 05/04/18 Fidel De La Garza MD 4548 [place] [address] Consulting Hematology/Oncology 05/15/18 Hal[place] ([place]), [place] [address] [place], [place] 5054406 Specialty Front Desk Host HOSPICE & PALLIATIVE MEDICINE 05/15/18 Ela Alvarez MD [address] [place] [address] Hematology/Oncology 04/26/22 Nancie Low RN [address] [place] [address] Specialty Front Desk Host Hematology/Oncology 04/26/22 Mara Guardado, law office managerManager Cardiovascular 10/21/22 Mechanical Maintenance Technician Relationship Specialty Start Date End Date Ovidio Vincent MD [address] [place] [address] PCP - General Family Medicine 03/16/21 Becky Leija MD, [address] [place] [address] Physician Radiation Oncology 11/24/17 Tato Castro [address] [place] [address] Pain Management Anesthesiology 01/30/18 Santos Woods MD [address] [address] Physician Blood and Marrow Transplant 05/04/18 Fidel De La Garza MD 9613 [place] [address] Consulting Hematology/Oncology 05/15/18 Halima [place] ([place]), [place] [address] [place] [address] Specialty Front Desk Host HOSPICE & PALLIATIVE MEDICINE 05/15/18 Ela Alvarez MD [address] E [facility] [place] [address] Hematology/Oncology 04/26/22 Nancie Low RN 721 E [facility] [place] [address] Specialty Front Desk Host Hematology/Oncology 04/26/22 Mara Guardado, law office managerManager Cardiovascular 10/21/22 Mechanical Maintenance Technician Relationship Specialty Start Date End Date Ovidio Vincent MD [address] [place] [address] PCP - General Family Medicine 03/16/21 Becky Leija MD, [address] [facility] [place] [address] Physician Radiation Oncology 11/24/17 Tato Castro [address] [place] [address] Pain Management Anesthesiology 01/30/18 Santos Woods MD [address] [place] [id number] Physician Blood and Marrow Transplant 05/04/18 Fidel De La Garza MD [address] [place] [address] Consulting Hematology/Oncology 05/15/18 Halima Cohen ([place]n), [place] [address] [place], [place] [id number] Specialty Front Desk Host HOSPICE & PALLIATIVE MEDICINE 05/15/18 Ela Alvarez MD [address] [place] [address] Hematology/Oncology 04/26/22 Nancie Low, ALICIA [address] [place] [address] Specialty Front Desk Host Hematology/Oncology 04/26/22 Mara Guardado, law office managerManager Cardiovascular 10/21/22 Mechanical Maintenance Technician Relationship Specialty Start Date End Date Ovidio Vincent MD [address] [place] [address] PCP - General Family Medicine 03/16/21 Becky Leija MD, [address] [place] [address] Physician Radiation Oncology 11/24/17 Tato Castro [address] [place] [address] Pain Management Anesthesiology 01/30/18 Santos Woods MD [address] [address] Physician Blood and Marrow Transplant 05/04/18 Fidel De La Garza MD [address] [place] [address] Consulting Hematology/Oncology 05/15/18 Halima Cohen ([place]n), [place] [address] [place], [place] [id number] Specialty Front Desk Host HOSPICE & PALLIATIVE MEDICINE 05/15/18 Ela Alvarez MD [address] [place] [address] Hematology/Oncology 04/26/22 Nancie Low RN [address] [place] [address] Specialty Front Desk Host Hematology/Oncology 04/26/22 Mara Guardado, law office managerManager Cardiovascular 10/21/22 Mechanical Maintenance Technician Relationship Specialty Start Date End Date Ovidio Vincent MD [address] [place] [address] PCP - General Family Medicine 03/16/21 Becky Leija MD, [address] [place] [address] Physician Radiation Oncology 11/24/17 Tato Castro [address] [place] [address] Pain Management Anesthesiology 01/30/18 Santos Woods MD [address] [place], [place] [phone] Physician Blood and Marrow Transplant 05/04/18 Fidel De La Garza MD [address] [place], [place] 9600495 Consulting Hematology/Oncology 05/15/18 Halima [place] ([place]), [place] [address] [place], [place] 4764106 Specialty Front Desk Host HOSPICE & PALLIATIVE MEDICINE 05/15/18 Ela Alvarez MD [address] [place] [address] Hematology/Oncology 04/26/22 Nancie Low, ALICIA [address] [place] [address] Specialty Front Desk Host Hematology/Oncology 04/26/22 Mara Guardado, law office managerManager Cardiovascular 10/21/22 Mechanical Maintenance Technician Relationship Specialty Start Date End Date Ovidio Vincent MD [address] [place] [address] PCP - General Family Medicine 03/16/21 Becky Leija MD, [address] [place] [address] Physician Radiation Oncology 11/24/17 Tato Castro [address] [place], [place] 253071 Pain Management Anesthesiology 01/30/18 Santos Woods MD [address] [id number] Physician Blood and Marrow Transplant 05/04/18 Fidel De La Garza MD [address] [place], [place] 4430295 Consulting Hematology/Oncology 05/15/18 Halima [place] ([place]), [place] [address] [address] [place], [place] 8801106 Specialty Front Desk Host HOSPICE & PALLIATIVE MEDICINE 05/15/18 Ela Alvarez MD [address] [place] [address] Hematology/Oncology 04/26/22 Nancie Low, ALICIA [address] [place] [address] Specialty Front Desk Host Hematology/Oncology 04/26/22 Mara Guardado, law office managerManager Cardiovascular 10/21/22 Mechanical Maintenance Technician Relationship Specialty Start Date End Date Ovidio Vincent MD [address] [place] [address] PCP - General Family Medicine 03/16/21 Becky Leija MD, [address] [place] [address] Physician Radiation Oncology 11/24/17 Tato Castro [address] [place], [place] [phone] Pain Management Anesthesiology 01/30/18 Santos Woods MD [address] [id number] Physician Blood and Marrow Transplant 05/04/18 Fidel De La Garza MD [address] [place] [address] Consulting Hematology/Oncology 05/15/18 Halima [place] ([place] [address] [place], [place] 9228806 Specialty Front Desk Host HOSPICE & PALLIATIVE MEDICINE 05/15/18 Ela Alvarez MD [address] [place] [address] Hematology/Oncology 04/26/22 Nancie Low RN [address] [place] [address] Specialty Front Desk Host Hematology/Oncology 04/26/22 Mara Guardado, law office managerManager Cardiovascular 10/21/22 Mechanical Maintenance Technician Relationship Specialty Start Date End Date Ovidio Vincent MD [address] [place] [address] PCP - General Family Medicine 03/16/21 Becky Leija MD, [address] [place] [address] Physician Radiation Oncology 11/24/17 Tato Castro [address] [place] [address] Pain Management Anesthesiology 01/30/18 Santos Woods MD [address] [address] Physician Blood and Marrow Transplant 05/04/18 Fidel De La Garza MD [address] [place] [address] Consulting Hematology/Oncology 05/15/18 Halima [place] ([place]n), [place] [address] [place], [place] 6168806 Specialty Front Desk Host HOSPICE & PALLIATIVE MEDICINE 05/15/18 Ela Alvarez MD [address] [facility] [place] [address] Hematology/Oncology 04/26/22 Nancie Low RN [address] [facility] [place] [address] Specialty Front Desk Host Hematology/Oncology 04/26/22 Mara Guardado, law office managerManager Cardiovascular 10/21/22 Mechanical Maintenance Technician Relationship Specialty Start Date End Date Ovidio Vincent MD [address] [place] [address] PCP - General Family Medicine 03/16/21 Becky Leija MD, [address] [place] [address] Physician Radiation Oncology 11/24/17 Tato Castro [address] [place] [address] Pain Management Anesthesiology 01/30/18 Santos Woods MD [address] [id number] Physician Blood and Marrow Transplant 05/04/18 Fidel De La Garza MD [address] [place] [address] Consulting Hematology/Oncology 05/15/18 Halima Coehn ([place]n), [place] [address] [place] [address] Specialty Front Desk Host HOSPICE & PALLIATIVE MEDICINE 05/15/18 Ela Alvarez MD [address] [place] [address] Hematology/Oncology 04/26/22 Nancie Low RN [address] [place] [address] Specialty Front Desk Host Hematology/Oncology 04/26/22 Mara Guardado, law office managerManager Cardiovascular 10/21/22 Mechanical Maintenance Technician Relationship Specialty Start Date End Date Ovidio Vincent MD [address] [place] [address] PCP - General Family Medicine 03/16/21 Becky Leija MD, [address] [place] [address] Physician Radiation Oncology 11/24/17 Tato Castro [address] [place] [address] 943981 Pain Management Anesthesiology 01/30/18 Santos Woods MD [address] 6[address] [place] [address] Physician Blood and Marrow Transplant 05/04/18 Fidel De La Garza MD [address] [place] [address] Consulting Hematology/Oncology 05/15/18 Halima [place] ([place]), [place] [address] [place], [place] 0414106 Specialty Front Desk Host HOSPICE & PALLIATIVE MEDICINE 05/15/18 Ela Alvarez MD [address] [place] [address] Hematology/Oncology 04/26/22 Nancie Low, ALICIA [address] [place] [address] Specialty Front Desk Host Hematology/Oncology 04/26/22 Mara Guardado, law office managerManager Cardiovascular 10/21/22 Team Status: Active Member Role Status Dates Dr. Daniel Vallejo III, MD Family Provider Active Dr. Ovidio Vincent MD Primary Care Provider Active Team Status: Inactive Member Role Status Dates Dr. Ovidio Vincent MD Primary Care Provider Active Dr. Shabbir Davila MD Admit Provider, Attending Provid er Active Mechanical Maintenance Technician Relationship Specialty Start Date End Date Ovidio Vincent MD [address] [place], [place] 310241 PCP - General Family Medicine 03/16/21 Becky Leija MD, MD [address] [place] [address] Physician Radiation Oncology 11/24/17 Tato Castro [address] [place] [address] 030641 Pain Management Anesthesiology 01/30/18 Santos Woods MD [address] [address] Physician Blood and Marrow Transplant 05/04/18 Fidel De La Garza MD [address] [place], [place] 9529595 Consulting Hematology/Oncology 05/15/18 Halima [place] ([place]n), [place] [address] [place], [place] 1920506 Specialty Front Desk Host HOSPICE & PALLIATIVE MEDICINE 05/15/18 Ela Alvarez MD [address] [place], [place] 35010691 Hematology/Oncology 04/26/22 Nancie Low, ALICIA [address] [place] [address] Specialty Front Desk Host Hematology/Oncology 04/26/22 Mara Guardado, law office managerManager Cardiovascular 10/21/22 Mechanical Maintenance Technician Relationship Specialty Start Date End Date Ovidio Vincent MD [address] [place], [place] [id number] PCP - General Family Medicine 03/16/21 Becky Leija MD, MD [address] [place], [place] 64703691 Physician Radiation Oncology 11/24/17 Tato Castro [address] [place] [address] Pain Management Anesthesiology 01/30/18 Santos Woods MD [address] [place] [address] Physician Blood and Marrow Transplant 05/04/18 Fidel De La Garza MD [address] [place] [address] Consulting Hematology/Oncology 05/15/18 Halima Cohen ([place]), [place] [address] [place] [address] Specialty Front Desk Host HOSPICE & PALLIATIVE MEDICINE 05/15/18 Ela Alvarez MD [address] [place], [place] 83552691 Hematology/Oncology 04/26/22 Nancie Low, ALICIA [address] [place], [place] 269811 Specialty Front Desk Host Hematology/Oncology 04/26/22 Mara Guardado, law office managerManager Cardiovascular 10/21/22 Team Status: Active Member Role Status [...] Dr. Adam Bridges DO Emergency Provider Active Mechanical Maintenance Technician Relationship Specialty Start Date End Date Ovidio Vincent MD [address] [place], [place] [id number] PCP - General Family Medicine 03/16/21 Becky Leija MD, MD [address] [place] [address] Physician Radiation Oncology 11/24/17 Tato Castro [address] [place] [address] Pain Management Anesthesiology 01/30/18 Santos Woods MD [address] [place], [place] 4147895 Physician Blood and Marrow Transplant 05/04/18 Fidel De La Garza MD [address] [place], [place] 8572195 Consulting Hematology/Oncology 05/15/18 Halima Cohen (Rn), [place] [address] [place], [place] 5399606 Specialty Front Desk Host HOSPICE & PALLIATIVE MEDICINE 05/15/18 Ela Alvarez MD [address] [place] [address] Hematology/Oncology 04/26/22 Nancie Low, ALICIA [address] [place] [address] Specialty Front Desk Host Hematology/Oncology 04/26/22 Mara Guardado, law office managerManager Cardiovascular 10/21/22 Mechanical Maintenance Technician Relationship Specialty Start Date End Date Ovidio Vincent MD [address] [place] [address] PCP - General Family Medicine 03/16/21 Becky Leija MD, [address] [place] [address] Physician Radiation Oncology 11/24/17 Tato Castro [address] [place], [place] 332081 Pain Management Anesthesiology 01/30/18 Santos Woods MD [address] [id number] Physician Blood and Marrow Transplant 05/04/18 Fidel De La Garza MD [address] [place], [place] 9109295 Consulting Hematology/Oncology 05/15/18 Halima [place] (Rn), [place] [address] [place], [place] 1805906 Specialty Front Desk Host HOSPICE & PALLIATIVE MEDICINE 05/15/18 Ela Alvarez MD [address] [place] [address] Hematology/Oncology 04/26/22 Nancie Low, ALICIA [address] [place] [address] Specialty Front Desk Host Hematology/Oncology 04/26/22 Mara Guardado, law office managerManager Cardiovascular 10/21/22 Mechanical Maintenance Technician Relationship Specialty Start Date End Date Ovidio Vincent MD [address] [place] [address] PCP - General Family Medicine 03/16/21 Becky Leija MD, [address] [place] [address] Physician Radiation Oncology 11/24/17 Tato Castro [address] [place], [place] [phone] Pain Management Anesthesiology 01/30/18 Santos Woods MD [address] 9729695 Physician Blood and Marrow Transplant 05/04/18 Fidel De La Garza MD [address] [place] [address] Consulting Hematology/Oncology 05/15/18 Halima [place] ([place]), [place] [address] [place], [place] 1985206 Specialty Front Desk Host HOSPICE & PALLIATIVE MEDICINE 05/15/18 Ela Alvarez MD [address] [place], [place] 368051 Hematology/Oncology 04/26/22 Nancie Low, ALICIA [address] [place] [address] Specialty Front Desk Host Hematology/Oncology 04/26/22 Marta Lui RN [address] [place] [address] Manager Cardiovascular 02/22/23 Mechanical Maintenance Technician Relationship Specialty Start Date End Date Ovidio Vincent MD [address] [place] [address] PCP - General Family Medicine 03/16/21 Becky Leija MD, [address] [place] [address] Physician Radiation Oncology 11/24/17 Tato Castro [address] [place], [place] 581571 Pain Management Anesthesiology 01/30/18 Santos Woods MD [address] [address] Physician Blood and Marrow Transplant 05/04/18 Fidel De La Garza MD [address] [place] [address] Consulting Hematology/Oncology 05/15/18 Halima [place] ([place]n), [place] [address] [place], [place] 7390206 Specialty Front Desk Host HOSPICE & PALLIATIVE MEDICINE 05/15/18 Ela Alvarez MD [address] [place], [place] 48026691 Hematology/Oncology 04/26/22 Nancie Low, ALICIA [address] [place], [place] 19868691 Specialty Front Desk Host Hematology/Oncology 04/26/22 Marta Lui, ALICIA [address] [place] [address] Manager Cardiovascular 02/22/23 Mechanical Maintenance Technician Relationship Specialty Start Date End Date Ovidio Vincent MD [address] [place], [place] [id number] [phone] PCP - General Family Medicine 03/16/21 Becky Leija MD, [address] [place], [place] 938097 [phone] Physician Radiation Oncology 11/24/17 Tato Castro [address] [place], [place] [phone] Pain Management Anesthesiology 01/30/18 Santos Woods MD [address] [address] Physician Blood and Marrow Transplant 05/04/18 Fidel De La Garza MD [address] [place] [address] Consulting Hematology/Oncology 05/15/18 Halima Cohen (Rn), [place] [address] [place], [place] 7131906 Specialty Front Desk Host HOSPICE & PALLIATIVE MEDICINE 05/15/18 Ela Alvarez MD [address] [place], [place] 87238691 Hematology/Oncology 04/26/22 Nancie Low RN [address] [place], [place] 260391 Specialty Front Desk Host Hematology/Oncology 04/26/22 Marta Lui RN [address] [place] [address] Manager Cardiovascular 02/22/23 Mechanical Maintenance Technician Relationship Specialty Start Date End Date Ovidio Vincent MD [address] [place] [address] PCP - General Family Medicine 03/16/21 Becky Leija MD, [address] [place] [address] Physician Radiation Oncology 11/24/17 Tato Castro [address] [place] [address] [phone] Pain Management Anesthesiology 01/30/18 Santos Woods MD [address] [place] [address] Physician Blood and Marrow Transplant 05/04/18 Fidel De La Garza MD [address] [place] [address] Consulting Hematology/Oncology 05/15/18 Halima [place] ([place] [address] [place] [address] Specialty Front Desk Host HOSPICE & PALLIATIVE MEDICINE 05/15/18 Ela Alvarez MD [address] [place], [place] 79265691 Hematology/Oncology 04/26/22 Nancie Low RN [address] [place] [address] Specialty Front Desk Host Hematology/Oncology 04/26/22 Marta Lui, ALICIA [address] [place] [address] Manager Cardiovascular 02/22/23 Mechanical Maintenance Technician Relationship Specialty Start Date End Date Ovidio Vincent MD [address] [place], [place] 949391 PCP - General Family Medicine 03/16/21 Becky Leija MD, [address] [place], [place] 181101 Physician Radiation Oncology 11/24/17 Tato Castro [address] [place] [address] [phone] Pain Management Anesthesiology 01/30/18 Santos Woods MD [address] [address] Physician Blood and Marrow Transplant 05/04/18 Fidel De La Garza MD [address] [place] [address] Consulting Hematology/Oncology 05/15/18 Halima [place] ([place]n), [place] [address] [place], [place] 5077706 Specialty Front Desk Host HOSPICE & PALLIATIVE MEDICINE 05/15/18 Ela Alvarez MD [address] [place], [place] 56477691 Hematology/Oncology 04/26/22 Nancie Low, ALICIA [address] [place], [place] 98041691 Specialty Front Desk Host Hematology/Oncology 04/26/22 Marta Lui RN [address] [place] [address] Manager Cardiovascular 02/22/23 Team Status: Inactive Member Role Status Dates Dr. Ovidio Vincent MD Primary Care Provider Active Dr. Adam Bridges DO Attending Provider, Ruddy solares Active Mechanical Maintenance Technician Relationship Specialty Start Date End Date Ovidio Vincent MD [address] [place], [place] 963201 PCP - General Family Medicine 03/16/21 Becky Leija MD, [address] [place] [address] Physician Radiation Oncology 11/24/17 Tato Castro [address] [place], [place] 520991 Pain Management Anesthesiology 01/30/18 Santos Woods MD 8249 [facility] [address] [address] Physician Blood and Marrow Transplant 05/04/18 Fidel De La Garza MD [address] [place] [address] Consulting Hematology/Oncology 05/15/18 Halima Cohen ([place]), [place] [address] [place] [address] Specialty Front Desk Host HOSPICE & PALLIATIVE MEDICINE 05/15/18 Ela Alvarez MD [address] [place] [address] Hematology/Oncology 04/26/22 Nancie Low, ALICIA [address] [place] [address] Specialty Front Desk Host Hematology/Oncology 04/26/22 Marta Lui, ALICIA [address] [place] [address] Manager Cardiovascular 02/22/23 Mechanical Maintenance Technician Relationship Specialty Start Date End Date Ovidio Vincent MD [address] [place], [place] [id number] [phone] PCP - General Family Medicine 03/16/21 Becky Leija MD, MD [address] [place], [place] 21877691 Physician Radiation Oncology 11/24/17 Kr[address] lopez [address] [place] [address] 509931 Pain Management Anesthesiology 01/30/18 Santos Woods MD [address] [facility] [place] [address] Physician Blood and Marrow Transplant 05/04/18 Fidel De La Garza MD [address] [place] [address] Consulting Hematology/Oncology 05/15/18 Halima [place] ([place]n), [place] [address] [place] [address] Specialty Front Desk Host HOSPICE & PALLIATIVE MEDICINE 05/15/18 Ela Alvarez MD [address] [place], [place] 35272691 Hematology/Oncology 04/26/22 Nancie Low, ALICIA [address] [place], [place] 41790691 Specialty Front Desk Host Hematology/Oncology 04/26/22 Marta Lui, ALICIA [address] [place] [address] Manager Cardiovascular 02/22/23 Mechanical Maintenance Technician Relationship Specialty Start Date End Date Ovidio Vincent MD [address] [place], [place] [id number] PCP - General Family Medicine 03/16/21 Becky Leija MD, MD [address] [place], [place] 68512691 Physician Radiation Oncology 11/24/17 Tato Castro [address] [place], [place] 573191 Pain Management Anesthesiology 01/30/18 Santos Woods MD 9500 [facility] [address] [place], [place] 5548595 Physician Blood and Marrow Transplant 05/04/18 Fidel De La Garza MD [address] [place], [place] 4908095 Consulting Hematology/Oncology 05/15/18 Halima Cohen (Rn), [place] [address] [place], [place] 6000506 Specialty Front Desk Host HOSPICE & PALLIATIVE MEDICINE 05/15/18 Ela Alvarez MD [address] [place] [address] Hematology/Oncology 04/26/22 Nancie Low, ALICIA [address] [place], [place] 78525691 Specialty Front Desk Host Hematology/Oncology 04/26/22 Marta Lui, ALICIA [address] [place] [address] Manager Cardiovascular 02/22/23 Mechanical Maintenance Technician Relationship Specialty Start Date End Date Ovidio Vincent MD [address] [place], [place] 034431 PCP - General Family Medicine 03/16/21 Becky Leija MD, MD [address] [facility] [place], [place] 83992691 Physician Radiation Oncology 11/24/17 Tato Castro [address] [place], [place] 308271 Pain Management Anesthesiology 01/30/18 Santos Woods MD 9500 [facility] [address] [place], [place] 7253195 Physician Blood and Marrow Transplant 05/04/18 Fidel De La Garza MD [address] [place], [place] 3917095 Consulting Hematology/Oncology 05/15/18 Halima Cohen (Rn), [place] [address] [place], [place] 0405606 Specialty Front Desk Host HOSPICE & PALLIATIVE MEDICINE 05/15/18 Ela Alvarez MD [address] [place], [place] 09196691 Hematology/Oncology 04/26/22 Nancie Low, ALICIA [address] [place], [place] 65259691 Specialty Front Desk Host Hematology/Oncology 04/26/22 Marta Lui, ALICIA [address] [place] [address] Manager Cardiovascular 02/22/23 Mechanical Maintenance Technician Relationship Specialty Start Date End Date Ovidio Vincent MD [address] [place], [place] [id number] PCP - General Family Medicine 03/16/21 Becky Leija MD, MD [address] [place], [place] 21360691 Physician Radiation Oncology 11/24/17 Tato Castro [address] [place], [place] [phone] Pain Management Anesthesiology 01/30/18 Santos Woods MD 9500 [facility] [address] [place] [address] Physician Blood and Marrow Transplant 05/04/18 Fidel De La Garza MD [address] [place], [place] 1965295 Consulting Hematology/Oncology 05/15/18 Halima [place] (Rn), [place] [address] [address] [place], [place] 0654206 Specialty Front Desk Host HOSPICE & PALLIATIVE MEDICINE 05/15/18 Ela Alvarez MD [address] [place], [place] 10480691 Hematology/Oncology 04/26/22 Nancie Low RN [address] [place], [place] 50630691 Specialty Front Desk Host Hematology/Oncology 04/26/22 Marta Lui, ALICIA [address] [place] [address] Manager Cardiovascular 02/22/23 Mechanical Maintenance Technician Relationship Specialty Start Date End Date Ovidio Vincent MD [address] [place], [place] 989121 PCP - General Family Medicine 03/16/21 Becky Leija MD, [address] [place], [place] 03975691 Physician Radiation Oncology 11/24/17 Tato Castro [address] [place] [address] [phone] Pain Management Anesthesiology 01/30/18 Santos Woods MD [address] [place] [address] Physician Blood and Marrow Transplant 05/04/18 Fidel De La Garza MD [address] [place], [place] 7947195 Consulting Hematology/Oncology 05/15/18 Halima Cohen (Rn), [place] [address] [address] [place], [place] 2974706 Specialty Front Desk Host HOSPICE & PALLIATIVE MEDICINE 05/15/18 Ela Alvarez MD [address] [place] [address] Hematology/Oncology 04/26/22 Nancie Low RN [address] [place], [place] 799531 Specialty Front Desk Host Hematology/Oncology 04/26/22 Marta Lui, ALICIA [address] [place] [address] Manager Cardiovascular 02/22/23 Mechanical Maintenance Technician Relationship Specialty Start Date End Date Ovidio Vincent MD [address] [place], [place] [phone] PCP - General Family Medicine 03/16/21 Becky Leija MD, MD [address] [place], [place] 16643691 Physician Radiation Oncology 11/24/17 Tato Castro [address] [place] [address] 248331 Pain Management Anesthesiology 01/30/18 Santos Woods MD [address] 7862295 Physician Blood and Marrow Transplant 05/04/18 Fidel De La Garza MD [address] [place], [place] 2761995 Consulting Hematology/Oncology 05/15/18 Halima Cohen (Rn), [place] [address] [place], [place] 9967306 Specialty Front Desk Host HOSPICE & PALLIATIVE MEDICINE 05/15/18 Ela Alvarez MD [address] [place], [place] [id number] Hematology/Oncology 04/26/22 Nancie Low RN [address] [place], [place] 35127691 Specialty Front Desk Host Hematology/Oncology 04/26/22 Marta Lui, ALICIA [address] [place] [address] Manager Cardiovascular 02/22/23 Mechanical Maintenance Technician Relationship Specialty Start Date End Date Ovidio Vincent MD [address] [place], [place] [phone] PCP - General Family Medicine 03/16/21 Becky Leija MD, [address] [place], [place] 47066691 Physician Radiation Oncology 11/24/17 Tato Castro [address] [place] [address] [phone] Pain Management Anesthesiology 01/30/18 Santos Woods MD [address] 7862295 Physician Blood and Marrow Transplant 05/04/18 Fidel De La Garza MD [address] [place] [address] Consulting Hematology/Oncology 05/15/18 Halima Cohen (Rn), [place] [address] [place] [address] Specialty Front Desk Host HOSPICE & PALLIATIVE MEDICINE 05/15/18 Ela Alvarez MD [address] [place], [place] [id number] Hematology/Oncology 04/26/22 Nancie Low, ALICIA [address] [place], [place] 82635691 Specialty Front Desk Host Hematology/Oncology 04/26/22 Marta Lui, ALICIA [address] [place] [address] Manager Cardiovascular 02/22/23 Mechanical Maintenance Technician Relationship Specialty Start Date End Date Ovidio Vincent MD [address] [place], [place] 398321 PCP - General Family Medicine 03/16/21 Becky Leija MD, [address] [place], [place] 907381 Physician Radiation Oncology 11/24/17 Tato Castro [address] [place] [address] [phone] Pain Management Anesthesiology 01/30/18 Sanots Woods MD [address] [facility] [place] [address] Physician Blood and Marrow Transplant 05/04/18 Fidel De La Garza MD [address] [place], [place] 5299295 Consulting Hematology/Oncology 05/15/18 Halima Cohen (Rn), [place] [address] [address] [place], [place] 1385306 Specialty Front Desk Host HOSPICE & PALLIATIVE MEDICINE 05/15/18 Ela Alvarez MD [address] [place], [place] 851311 Hematology/Oncology 04/26/22 Nancie Low, ALICIA [address] [place], [place] 321261 Specialty Front Desk Host Hematology/Oncology 04/26/22 Marta Lui RN [address] [place] [address] Manager Cardiovascular 02/22/23 Mechanical Maintenance Technician Relationship Specialty Start Date End Date Ovidio Vincent MD [address] [place], [place] 376321 PCP - General Family Medicine 03/16/21 Becky Leija MD, MD [address] [place], [place] [phone] Physician Radiation Oncology 11/24/17 Tato Castro [address] [place] [address] 725731 Pain Management Anesthesiology 01/30/18 Santos Woods MD [address] [place], [place] 3540795 Physician Blood and Marrow Transplant 05/04/18 Fidel De La Garza MD [address] [place], [place] 0210395 Consulting Hematology/Oncology 05/15/18 Halima Cohen ([place]), [place] [address] [place] [address] Specialty Front Desk Host HOSPICE & PALLIATIVE MEDICINE 05/15/18 Ela Alvarez MD [address] [place], [place] 575711 Hematology/Oncology 04/26/22 Nancie Low, ALICIA [address] [place], [place] [phone] Specialty Front Desk Host Hematology/Oncology 04/26/22 Marta Lui RN [address] [place] [address] Manager Cardiovascular 02/22/23 Mechanical Maintenance Technician Relationship Specialty Start Date End Date Ovidio Vincent MD [address] [place] [address] PCP - General Family Medicine 03/16/21 Becky Leija MD, MD [address] [place], [place] [phone] Physician Radiation Oncology 11/24/17 Tato Castro [address] [place] [address] [phone] Pain Management Anesthesiology 01/30/18 Santos Woods MD 9500 [facility] [address] [address] Physician Blood and Marrow Transplant 05/04/18 Fidel De La Garza MD [address] [place] [address] Consulting Hematology/Oncology 05/15/18 Halima Cohen (Rn), [place] [address] [place] [address] Specialty Front Desk Host HOSPICE & PALLIATIVE MEDICINE 05/15/18 Ela Alvarez MD [address] [place], [place] 042261 Hematology/Oncology 04/26/22 05/02/23 Nancie Low, ALICIA [address] [place], [place] [phone] Specialty Front Desk Host Hematology/Oncology 04/26/22 Marta Lui, ALICIA [address] [place] [address] Manager Cardiovascular 02/22/23 Murray Mooney MD [address] [place] [address] Hematology/Oncology 05/03/23 Mechanical Maintenance Technician Relationship Specialty Start Date End Date Ovidio Vincent MD [address] [place], [place] 672371 PCP - General Family Medicine 03/16/21 Becky Leija MD, [address] [place] [address] Physician Radiation Oncology 11/24/17 Tato Castro [address] [place] [address] [phone] Pain Management Anesthesiology 01/30/18 Santos Woods MD [address] [place], [place] 0784895 Physician Blood and Marrow Transplant 05/04/18 Fidel De La Garza MD 9500 [facility] [place], [place] [phone] Consulting Hematology/Oncology 05/15/18 Halima Cohen (Rn), [place] [address] [place] [address] Specialty Front Desk Host HOSPICE & PALLIATIVE MEDICINE 05/15/18 Nancie Low, ALICIA [address] [place], [place] 240561 Specialty Front Desk Host Hematology/Oncology 04/26/22 Marta Lui, ALICIA [address] [place], [place] [phone] Manager Cardiovascular 02/22/23 Murray Mooney MD [address] [place] [address] Hematology/Oncology 05/03/23 Mechanical Maintenance Technician Relationship Specialty Start Date End Date Ovidio Vincent MD [address] [place] [address] PCP - General Family Medicine 03/16/21 Becky Leija MD, [address] [place] [address] Physician Radiation Oncology 11/24/17 Tato Castro [address] [place] [address] [phone] Pain Management Anesthesiology 01/30/18 Santos Woods MD 9500 [facility] [address] [address] [place] [address] Physician Blood and Marrow Transplant 05/04/18 Fidel De La Garza MD [address] [place], [place] [phone] Consulting Hematology/Oncology 05/15/18 Halima Cohen (Rn), [place] [address] [place], [place] [phone] Specialty Front Desk Host HOSPICE & PALLIATIVE MEDICINE 05/15/18 Nancie Low, ALICIA [address] [place], [place] [id number] Specialty Front Desk Host Hematology/Oncology 04/26/22 Marta Lui, ALICIA [address] [place] [address] Manager Cardiovascular 02/22/23 Murray Mooney MD [address] [place], [place] [phone] Hematology/Oncology 05/03/23 Mechanical Maintenance Technician Relationship Specialty Start Date End Date Ovidio Vincent MD [address] [place], [place] [phone] PCP - General Family Medicine 03/16/21 Becky Leija MD, [address] [place], [place] [phone] Physician Radiation Oncology 11/24/17 Tato Castro [address] [place] [address] [phone] Pain Management Anesthesiology 01/30/18 Santos Woods MD [address] [facility] [address] [address] Physician Blood and Marrow Transplant 05/04/18 Fidel De La Garza MD [address] [place] [address] Consulting Hematology/Oncology 05/15/18 Halima Cohen (Rn), RN [address] [place], [place] 0185506 Specialty Front Desk Host HOSPICE & PALLIATIVE MEDICINE 05/15/18 Nancie Low, ALICIA [address] [place], [place] [phone] Specialty Front Desk Host Hematology/Oncology 04/26/22 Marta Lui, ALICIA [address] [place] [address] Manager Cardiovascular 02/22/23 Murray Mooney MD [address] [place], [place] [phone] Hematology/Oncology 05/03/23 Mechanical Maintenance Technician Relationship Specialty Start Date End Date Ovidio Vincent MD [address] [place], [place] [phone] PCP - General Family Medicine 03/16/21 Becky Leija MD, [address] [place], [place] [phone] Physician Radiation Oncology 11/24/17 Tato Castro [address] [place] [address] 299401 Pain Management Anesthesiology 01/30/18 Santos Woods MD [address] [place] [address] Physician Blood and Marrow Transplant 05/04/18 Fidel De La Garza MD [address] [place] [address] Consulting Hematology/Oncology 05/15/18 Halima Cohen ([place]n), [place] [address] [place] [address] Specialty Front Desk Host HOSPICE & PALLIATIVE MEDICINE 05/15/18 Nancie Low, ALICIA [address] [place], [place] 564001 Specialty Front Desk Host Hematology/Oncology 04/26/22 Marta Lui, ALICIA [address] [place] [address] Manager Cardiovascular 02/22/23 Murray Mooney MD [address] [place], [place] [phone] Hematology/Oncology 05/03/23 Team Status: Inactive Member Role [...] MD Attending Provider, Referring Pr ovider Active Mechanical Maintenance Technician Relationship Specialty [place] [address] [place] [address] [id number] PCP - General Family Medicine 03/16/21 Becky Leija MD, MD [address] [place], [place] [phone] Physician Radiation Oncology 11/24/17 Tato Castro [address] [place] [address] [phone] Pain Management Anesthesiology 01/30/18 Santos Woods MD 9500 [facility] [address] [place], [place] 4837195 Physician Blood and Marrow Transplant 05/04/18 Fidel De La Garza MD [address] [place], [place] [phone] Consulting Hematology/Oncology 05/15/18 Halima [place] ([place] [address] [place] 7502006 Specialty Front Desk Host HOSPICE & PALLIATIVE MEDICINE 05/15/18 Nancie Low, ALICIA [address] [place], [place] [phone] Specialty Front Desk Host Hematology/Oncology 04/26/22 Marta Lui, ALICIA [address] [place] [address] Manager Cardiovascular 02/22/23 Murray Mooney MD [address] [place], [place] 48857691 Hematology/Oncology 05/03/23 Mechanical Maintenance Technician Relationship Specialty Start Date End Date Ovidio Vincent MD [address] [place] [address] PCP - General Family Medicine 03/16/21 Becky Leija MD, [address] [place], [place] [phone] Physician Radiation Oncology 11/24/17 Tato Castro [address] [place] [address] [phone] Pain Management Anesthesiology 01/30/18 Santos Woods MD 9500 [facility] [address] [place], [place] 2663195 Physician Blood and Marrow Transplant 05/04/18 Fidel De La Garza MD [address] [place], [place] 0430095 Consulting Hematology/Oncology 05/15/18 Halima Cohen ([place]n), [place] [address] [place] [address] Specialty Front Desk Host HOSPICE & PALLIATIVE MEDICINE 05/15/18 Nacnie Low, ALICIA [address] [place], [place] 982301 Specialty Front Desk Host Hematology/Oncology 04/26/22 Marta Lui RN [address] [place] [address] Manager Cardiovascular 02/22/23 Murray Mooney MD [address] [place], [place] [phone] Hematology/Oncology 05/03/23 Team Status: Active Member Role Status Dates Dr. Ovidio Vincent MD Primary Care Provider Active Maria Isabel Holden DENTAL EQUIPMENT MECHANIC, DENTAL EQUIPMENT MECHANIC-C Attending Provider Active Team Status: Active Member Role Status Dates Dr. Ovidio Vincent MD Primary Care Provider Active Dr. Patsy Gamble MD Attending Provider Active Mechanical Maintenance Technician Relationship Specialty Start Date End Date Ovidio Vincent MD [address] [place], [place] 711471 PCP - General Family Medicine 03/16/21 Becky Leija MD, MD [address] [place], [place] [phone] Physician Radiation Oncology 11/24/17 Tato Castro [address] [place], [place] 097691 Pain Management Anesthesiology 01/30/18 Santos Woods MD 9500 [facility] [address] [place], [place] 8618995 Physician Blood and Marrow Transplant 05/04/18 Fidel De La Garza MD [address] [place], [place] 4703295 Consulting Hematology/Oncology 05/15/18 Halima Cohen (Rn), [place] [address] [place] 8376806 Specialty Front Desk Host HOSPICE & PALLIATIVE MEDICINE 05/15/18 Nancie Low, ALICIA [address] [place], [place] 304741 Specialty Front Desk Host Hematology/Oncology 04/26/22 Marta Lui, ALICIA [address] [place], [place] [phone] Manager Cardiovascular 02/22/23 Murray Mooney MD [address] [place], [place] 332914 [phone] Hematology/Oncology 05/03/23 Mechanical Maintenance Technician Relationship Specialty Start Date End Date Ovidio Vincent MD [address] [place] [address] PCP - General Family Medicine 03/16/21 Becky Leija MD, [address] [place] [address] Physician Radiation Oncology 11/24/17 Tato Castro MD [address] [place], [place] 700841 Pain Management Anesthesiology 01/30/18 Santos Woods MD 9500 [facility] [address] [place], [place] 3056495 Physician Blood and Marrow Transplant 05/04/18 Fidel De La Garza MD [address] [place], [place] 8591995 Consulting Hematology/Oncology 05/15/18 Halima Cohen (Rn), [place] [address] [place], [place] 1603906 Specialty Front Desk Host HOSPICE & PALLIATIVE MEDICINE 05/15/18 Nancie Low, ALICIA [address] [place], [place] [phone] Specialty Front Desk Host Hematology/Oncology 04/26/22 Marta Lui, ALICIA [address] [place], [place] [phone] Manager Cardiovascular 02/22/23 Murray Mooney MD [address] [place], [place] 989611 Hematology/Oncology 05/03/23 Mechanical Maintenance Technician Relationship Specialty Start Date End Date Ovidio Vincent MD [address] [place], [place] 481651 PCP - General Family Medicine 03/16/21 Becky Leija MD, [address] [place], [place] 46945639 [phone] Physician Radiation Oncology 11/24/17 Tato Castro MD [address] [place], [place] [phone] Pain Management Anesthesiology 01/30/18 Santos Woods MD 9500 [facility] [place], [place] 4065795 Physician Blood and Marrow Transplant 05/04/18 Fidel De La Garza MD [address] [place], [place] 2719295 Consulting Hematology/Oncology 05/15/18 Halima [place] ([place]n), [place] [address] [place], [place] 8973206 Specialty Front Desk Host HOSPICE & PALLIATIVE MEDICINE 05/15/18 Nancie Low, ALICIA [address] [place], [place] [phone] Specialty Front Desk Host Hematology/Oncology 04/26/22 Marta Lui, ALICIA [address] [place] [address] Manager Cardiovascular 02/22/23 Murray Mooney MD [address] [place], [place] [phone] Hematology/Oncology 05/03/23 Mechanical Maintenance Technician Relationship Specialty Start Date End Date Ovidio Vincent MD [address] [place], [place] [phone] PCP - General Family Medicine 03/16/21 Becky Leija MD, [address] [place], [place] 37635691 Physician Radiation Oncology 11/24/17 Tato Castro MD [address] [place] [address] [phone] Pain Management Anesthesiology 01/30/18 Santos Woods MD [address] [place] [address] [place], [place] 3570295 Physician Blood and Marrow Transplant 05/04/18 Fidel De La Garza MD [address] [place] [address] Consulting Hematology/Oncology 05/15/18 Halima [place] ([place]n), [place] [address] [place] [address] Specialty Front Desk Host HOSPICE & PALLIATIVE MEDICINE 05/15/18 Nancie Low, ALICIA [address] [place], [place] 792891 Specialty Front Desk Host Hematology/Oncology 04/26/22 Marta Lui RN [address] [place], [place] 2874431 Manager Cardiovascular 02/22/23 Murray Mooney MD [address] [place], [place] 945781 Hematology/Oncology 05/03/23 Mechanical Maintenance Technician Relationship Specialty Start Date End Date Ovidio Vincent MD [address] [place], [place] 931061 PCP - General Family Medicine 03/16/21 Becky Leija MD, [address] [place] [address] Physician Radiation Oncology 11/24/17 Tato Castro MD [address] [place] [address] Pain Management Anesthesiology 01/30/18 Santos Woods MD [address] 2575395 Physician Blood and Marrow Transplant 05/04/18 Fidel De La Garza MD [address] [place], [place] 2002595 Consulting Hematology/Oncology 05/15/18 Halima [place] ([place]), [place] [address] [place] [address] Specialty Front Desk Host HOSPICE & PALLIATIVE MEDICINE 05/15/18 Nancie Low, ALICIA [address] [place], [place] 31533691 Specialty Front Desk Host Hematology/Oncology 04/26/22 Marta Lui, ALICIA [address] [place] [address] Manager Cardiovascular 02/22/23 Murray Mooney MD [address] [place], [place] [phone] Hematology/Oncology 05/03/23 Mechanical Maintenance Technician Relationship Specialty Start Date End Date Ovidio Vincent MD [address] [place], [place] 939101 PCP - General Family Medicine 03/16/21 Becky Leija MD, [address] [place], [place] 934076 [phone] Physician Radiation Oncology 11/24/17 Tato Castro MD [address] [place] [address] 320751 Pain Management Anesthesiology 01/30/18 Santos Woods MD [address] [address] Physician Blood and Marrow Transplant 05/04/18 Fidel De La Garza MD [address] [place], [place] 9702695 Consulting Hematology/Oncology 05/15/18 Halima Cohen (Rn), [place] [address] [place], [place] 4246106 Specialty Front Desk Host HOSPICE & PALLIATIVE MEDICINE 05/15/18 Nancie Low, ALICIA [address] [place], [place] [phone] Specialty Front Desk Host Hematology/Oncology 04/26/22 Marta Lui, ALICIA [address] [place] [address] Manager Cardiovascular 02/22/23 Murray Mooney MD [address] [place], [place] [phone] Hematology/Oncology 05/03/23 Mechanical Maintenance Technician Relationship Specialty Start Date End Date Ovidio Vincent MD [address] [place], [place] 637626 [phone] PCP - General Family Medicine 03/16/21 Becky Leija MD, [address] [place], [place] 417801 [phone] Physician Radiation Oncology 11/24/17 Tato Castro MD [address] [place] [address] [phone] Pain Management Anesthesiology 01/30/18 Santos Woods MD [address] [facility] [address] [place] [address] Physician Blood and Marrow Transplant 05/04/18 Fidel De La Garza MD [address] [place] [address] Consulting Hematology/Oncology 05/15/18 Halima Cohen (Rn), [place] [address] [place] [address] Specialty Front Desk Host HOSPICE & PALLIATIVE MEDICINE 05/15/18 Ela Alvarez MD [address] [place], [place] [phone] Hematology/Oncology 04/26/22 05/02/23 Nancie Low, ALICIA [address] [place], [place] [phone] Specialty Front Desk Host Hematology/Oncology 04/26/22 Mara Guardado, law office managerManager Cardiovascular 10/21/22 02/21/23 Mechanical Maintenance Technician Relationship Specialty Start Date End Date Ovidio Vincent MD [address] [place], [place] 560621 PCP - General Family Medicine 03/16/21 Becky Leija MD, MD [address] [place] [address] Physician Radiation Oncology 11/24/17 Tato Castro MD [address] [place], [place] 608331 Pain Management Anesthesiology 01/30/18 Santos Woods MD [address] [place] [address] Physician Blood and Marrow Transplant 05/04/18 Fidel De La Garza MD [address] [place], [place] 1770695 Consulting Hematology/Oncology 05/15/18 Halima [place] (Rn), [place] [address] [place], [place] 4738706 Specialty Front Desk Host HOSPICE & PALLIATIVE MEDICINE 05/15/18 Nancie Low, ALICIA [address] [place], [place] [phone] Specialty Front Desk Host Hematology/Oncology 04/26/22 Marta Lui, ALICIA [address] [place] [address] Manager Cardiovascular 02/22/23 Murray Mooney MD [address] [place], [place] 29963691 Hematology/Oncology 05/03/23 Mechanical Maintenance Technician Relationship Specialty Start Date End Date Ovidio Vincent MD [address] [place], [place] [phone] PCP - General Family Medicine 03/16/21 Becky Leija MD, [address] [place], [place] 227451 Physician Radiation Oncology 11/24/17 Tato Castro MD [address] [place] [address] 056631 Pain Management Anesthesiology 01/30/18 Santos Woods MD [address] [address] Physician Blood and Marrow Transplant 05/04/18 Fidel De La Garza MD [address] [place] [address] Consulting Hematology/Oncology 05/15/18 Halima Cohen (Rn), [place] [address] [place] [address] Specialty Front Desk Host HOSPICE & PALLIATIVE MEDICINE 05/15/18 Nancie Low, ALICIA [address] [place], [place] [phone] Specialty Front Desk Host Hematology/Oncology 04/26/22 Marta Lui, ALICIA [address] [place] [address] Manager Cardiovascular 02/22/23 Murray Mooney MD [address] [place], [place] 72751423 [phone] Hematology/Oncology 05/03/23 Mechanical Maintenance Technician Relationship Specialty Start Date End Date Ovidio Vincent MD [address] [place], [place] [phone] PCP - General Family Medicine 03/16/21 Becky Leija MD, [address] [place], [place] [phone] Physician Radiation Oncology 11/24/17 [facility] [address] [place] [address] [phone] Pain Management Anesthesiology 01/30/18 Santos Woods MD [address] [address] Physician Blood and Marrow Transplant 05/04/18 Fidel De La Garza MD [address] [place] [address] Consulting Hematology/Oncology 05/15/18 Halima Cohen (Rn), [place] 387[address] [place], [place] 7938906 Specialty Front Desk Host HOSPICE & PALLIATIVE MEDICINE 05/15/18 Nancie Low, ALICIA [address] [place], [place] 888671 Specialty Front Desk Host Hematology/Oncology 04/26/22 Marta Lui, ALICIA [address] [place], [place] 1796831 Manager Cardiovascular 02/22/23 Murray Mooney MD [address] [place], [place] 408381 Hematology/Oncology 05/03/23 Mechanical Maintenance Technician Relationship Specialty Start Date End Date Ovidio Vincent MD [address] [place], [place] 101181 PCP - General Family Medicine 03/16/21 Becky Leija MD, MD [address] [place], [place] [phone] Physician Radiation Oncology 11/24/17 KrissyTato MD [address] [place] [address] [phone] Pain Management Anesthesiology 01/30/18 Santos Woods MD [address] [place] [address] Physician Blood and Marrow Transplant 05/04/18 Fidel De La Garza MD [address] [place] [address] Consulting Hematology/Oncology 05/15/18 Halima Cohen (Rn), [place] [address] [place], [place] 3445806 Specialty Front Desk Host HOSPICE & PALLIATIVE MEDICINE 05/15/18 Nancie Low, ALICIA [address] [place], [place] 969141 Specialty Front Desk Host Hematology/Oncology 04/26/22 Marta Lui RN [address] [place] [address] Manager Cardiovascular 02/22/23 Murray Mooney MD [address] [place], [place] 512971 Hematology/Oncology 05/03/23 Mechanical Maintenance Technician Relationship Specialty Start Date End Date Ovidio Vincent MD [address] [place], [place] 377551 PCP - General Family Medicine 03/16/21 Becky Leija MD, MD [address] [place], [place] 225818 [phone] Physician Radiation Oncology 11/24/17 Tato Castro MD [address] [place] [address] [phone] Pain Management Anesthesiology 01/30/18 Santos Woods MD [address] [address] Physician Blood and Marrow Transplant 05/04/18 Fidel De La Garza MD [address] [place], [place] 4698595 Consulting Hematology/Oncology 05/15/18 Halima [place] ([place]n), [place] [address] [place] [address] Specialty Front Desk Host HOSPICE & PALLIATIVE MEDICINE 05/15/18 Ela Alvarez MD [address] [place], [place] 451001 Hematology/Oncology 04/26/22 05/02/23 Nancie Low, ALICIA [address] [place], [place] [phone] Specialty Front Desk Host Hematology/Oncology 04/26/22 Mara Guardado, law office managerManager Cardiovascular 10/21/22 02/21/23 Marta Lui RN [address] [place], [place] [phone] Manager Cardiovascular 02/22/23 Murray Mooney MD [address] [place], [place] [phone] Hematology/Oncology 05/03/23 Mechanical Maintenance Technician Relationship Specialty Start Date End Date Ovidio Vincent MD [address] [place], [place] [phone] PCP - General Family Medicine 03/16/21 Becky Leija MD, [address] [place] [address] Physician Radiation Oncology 11/24/17 Tato Castro MD [address] [place] [address] [phone] Pain Management Anesthesiology 01/30/18 Santos Woods MD [address] [place] [address] Physician Blood and Marrow Transplant 05/04/18 Fidel De La Garza MD 9500 [facility] [place], [place] 5851695 Consulting Hematology/Oncology 05/15/18 Halima Cohen (Rn), [place] [address] [place], [place] 4358706 Specialty Front Desk Host HOSPICE & PALLIATIVE MEDICINE 05/15/18 Nancie Low, ALICIA [address] [place], [place] 602694 [phone] Specialty Front Desk Host Hematology/Oncology 04/26/22 Marta Lui, ALICIA [address] [place] [address] Manager Cardiovascular 02/22/23 Murray Mooney MD [address] [place] [address] Hematology/Oncology 05/03/23 Mechanical Maintenance Technician Relationship Specialty Start Date End Date Ovidio Vincent MD [address] [place] [address] PCP - General Family Medicine 03/16/21 Becky Leija MD, [address] [place] [address] Physician Radiation Oncology 11/24/17 Tato Castro MD [address] [place] [address] Pain Management Anesthesiology 01/30/18 Santos Woods MD 9500 [facility] [address] 5159495 Physician Blood and Marrow Transplant 05/04/18 Fidel De La Garza MD 9500 [facility] [place], [place] 6224295 Consulting Hematology/Oncology 05/15/18 Halima Cohen (Rn), [place] [address] [place] [address] Specialty Front Desk Host Hospice & Palliative Medicine 05/15/18 Nancie Low, ALICIA [address] [place], [place] [phone] Specialty Front Desk Host Hematology/Oncology 04/26/22 Marta Lui, ALICIA [address] [place] [address] Manager Cardiovascular 02/22/23 Murray Mooney MD [address] [place], [place] [phone] Hematology/Oncology 05/03/23 Leno Márquez [place] [address] [place] [address] [phone] Orthopedics 08/22/23 Team Status: Inactive Member Role Status Dates Dr. Ovidio Vincent MD Primary Care Provider Active KENDY BURROUGHS DENTAL EQUIPMENT MECHANIC-C Attending Provider, Grisel solares Active Mechanical Maintenance Technician Relationship Specialty Start Date End Date Ovidio Vincent MD [address] [place], [place] [phone] PCP - General Family Medicine 03/16/21 Becky Leija MD [address] [place], [place] [phone] Physician Radiation Oncology 11/24/17 Tato Castro MD [address] [place], [place] 166161 Pain Management Anesthesiology 01/30/18 Santos Woods MD 9500 [facility] [address] [place], [place] 2088095 Physician Blood and Marrow Transplant 05/04/18 Fidel De La Garza MD [address] [place] [address] Consulting Hematology/Oncology 05/15/18 Hal[place] [address] [place] [address] Specialty Front Desk Host Hospice & Palliative Medicine 05/15/18 Nancie Low, ALICIA [address] [place], [place] 806957 [phone] Specialty Front Desk Host Hematology/Oncology 04/26/22 Marta Lui RN [address] [place] [address] Manager Cardiovascular 02/22/23 Murray Mooney MD [address] [place], [place] 60999971 [phone] Hematology/Oncology 05/03/23 Leno Márquez MD [address] [phone] Orthopedics 08/22/23 Mechanical Maintenance Technician Relationship Specialty Start Date End Date Ovidio Vincent MD [address] [place], [place] 536399 [phone] PCP - General Family Medicine 03/16/21 Becky Leija MD [address] [place] [address] Physician Radiation Oncology 11/24/17 Tato Castro MD [address] [place] [address] 474771 Pain Management Anesthesiology 01/30/18 Santos Woods MD 9500 [facility] [address] [place], [place] 7984795 Physician Blood and Marrow Transplant 05/04/18 Fidel De La Garza MD 9509 [place] [address] Consulting Hematology/Oncology 05/15/18 Halima Cohen (Rn), [place] [address] [place], [place] 9016006 Specialty Front Desk Host Hospice & Palliative Medicine 05/15/18 Nancie Low, ALICIA [address] [place], [place] [phone] Specialty Front Desk Host Hematology/Oncology 04/26/22 Marta Lui, ALICIA [address] [place], [place] [phone] Manager Cardiovascular 02/22/23 Murray Mooney MD [address] [place], [place] 95976277 [phone] Hematology/Oncology 05/03/23 Leno Márquez MD [address] [address] Orthopedics 08/22/23 Mechanical Maintenance Technician Relationship Specialty Start Date End Date Ovidio Vincent MD [address] [place], [place] [phone] PCP - General Family Medicine 03/16/21 Becky Leija MD [address] [place] [address] Physician Radiation Oncology 11/24/17 Tato Castro MD [address] [place], [place] [phone] Pain Management Anesthesiology 01/30/18 Santos Woods MD 9500 [facility] [address] [place] [address] Physician Blood and Marrow Transplant 05/04/18 Fidel De La Garza MD [address] [place], [place] 5354495 Consulting Hematology/Oncology 05/15/18 Halima [place] ([place]), [place] [address] [place] [address] Specialty Front Desk Host Hospice & Palliative Medicine 05/15/18 Nancie Low, RN [address] [place], [place] [phone] Specialty Front Desk Host Hematology/Oncology 04/26/22 Marta Lui, ALICIA [address] [place] [address] Manager Cardiovascular 02/22/23 Murray Mooney MD [address] [place], [place] [phone] Hematology/Oncology 05/03/23 Leno Márquez MD [address] [address] Orthopedics 08/22/23 Loretta Leon PAAndriyC [address] [place], [place] [phone] Pulmonary and Critical Care Medicine 11/24/23 Mechanical Maintenance Technician Relationship Specialty Start Date End Date Ovidio Vincent MD [address] [place], [place] 526091 PCP - General Family Medicine 03/16/21 Becky Leija MD [address] [place], [place] [phone] Physician Radiation Oncology 11/24/17 Tato Castro MD [address] [place], [place] [phone] Pain Management Anesthesiology 01/30/18 Santos Woods MD 9508 [facility] [address] [id number] Physician Blood and Marrow Transplant 05/04/18 Fidel De La Garza MD [address] [place] [address] Consulting Hematology/Oncology 05/15/18 Halima [place] ([place]n), [place] [address] [place], [place] 8817306 Specialty Front Desk Host Hospice & Palliative Medicine 05/15/18 Nancie Low RN [address] [place], [place] [id number] Specialty Front Desk Host Hematology/Oncology 04/26/22 Marta Lui, RN [address] [place] [address] Manager Cardiovascular 02/22/23 Murray Mooney MD [address] [place], [place] [id number] Hematology/Oncology 05/03/23 Leno Márquez MD [address] [address] Orthopedics 08/22/23 Loretta Leon PA-C [address] [place] [address] Pulmonary and Critical Care Medicine 11/24/23 Mechanical Maintenance Technician Relationship Specialty Start Date End Date Ovidio Vincent MD [address] [place], [place] 023901 PCP - General Family Medicine 03/16/21 Becky Leija MD [address] [place], [place] [id number] Physician Radiation Oncology 11/24/17 [facility] [address] [place] [address] 280231 Pain Management Anesthesiology 01/30/18 Santos Woods MD [address] [address] Physician Blood and Marrow Transplant 05/04/18 Fidel De La Garza MD [address] [place] [address] Consulting Hematology/Oncology 05/15/18 Halima [place] ([place]n), [place] [address] [facility], [place] 3335606 Specialty Front Desk Host Hospice & Palliative Medicine 05/15/18 Nancie Low, ALICIA [address] [place], [place] [id number] Specialty Front Desk Host Hematology/Oncology 04/26/22 Marta Lui, ALICIA [address] [place] [address] Manager Cardiovascular 02/22/23 Murray Mooney MD [address] [place] [address] Hematology/Oncology 05/03/23 Leno Márquez MD [address] [id number] Orthopedics 08/22/23 Loretta Leon, PA-C [address] [place], [place] 275951 Pulmonary and Critical Care Medicine 11/24/23 Mechanical Maintenance Technician Relationship Specialty Start Date End Date Ovidio Vincent MD [address] [place], [place] 338921 PCP - General Family Medicine 03/16/21 Becky Leija MD [address] [place], [place] [id number] Physician Radiation Oncology 11/24/17 [facility] [address] [place] [address] Pain Management Anesthesiology 01/30/18 Santos Woods MD [address] [place] [address] Physician Blood and Marrow Transplant 05/04/18 Fidel De La Garza MD [address] [place] [address] Consulting Hematology/Oncology 05/15/18 Halima Cohen ([place]n), [place] [address] [place] [address] Specialty Front Desk Host Hospice & Palliative Medicine 05/15/18 Nancie Low, ALICIA [address] [place] [address] Specialty Front Desk Host Hematology/Oncology 04/26/22 Marta Lui, ALICIA [address] [place], [place] 2475931 Manager Cardiovascular 02/22/23 Murray Mooney MD [address] [place] [address] Hematology/Oncology 05/03/23 Leno Márquez MD [address] [phone] Orthopedics 08/22/23 Loretta Leon, PA-C [address] [place] [address] Pulmonary and Critical Care Medicine 11/24/23 Mechanical Maintenance Technician Relationship Specialty Start Date End Date Ovidio Vincent MD [address] [place] [address] PCP - General Family Medicine 03/16/21 Becky Leija MD [address] [place] [address] Physician Radiation Oncology 11/24/17 Tato Castro MD [address] [place] [address] Pain Management Anesthesiology 01/30/18 Santos Woods MD [address] [place], [place] 4658795 Physician Blood and Marrow Transplant 05/04/18 Fidel De La Garza MD [address] [place], [place] 6087895 Consulting Hematology/Oncology 05/15/18 Halima Cohen ([place]n), [place] [address] [place] [address] Specialty Front Desk Host Hospice & Palliative Medicine 05/15/18 Nancie Low, ALICIA [address] [facility]ITAL[facility] [place], [place] 39759691 Specialty Front Desk Host Hematology/Oncology 04/26/22 Marta Lui, ALICIA [address] [place] [address] Manager Cardiovascular 02/22/23 Murray Mooney MD [address] [place] [address] Hematology/Oncology 05/03/23 Leno Márquez MD [address] [phone] Orthopedics 08/22/23 Loretta Leon, PA-C [address] [place] [address] Pulmonary and Critical Care Medicine 11/24/23 Mechanical Maintenance Technician Relationship Specialty Start Date End Date Ovidio Vincent MD [address] [place] [address] PCP - General Family Medicine 03/16/21 Becky Leija MD [address] [facility] [place], [place] [phone] Physician Radiation Oncology 11/24/17 Tato Castro MD [address] [place], [place] [id number] Pain Management Anesthesiology 01/30/18 Santos Woods MD [address] [address] Physician Blood and Marrow Transplant 05/04/18 Fidel De La Garza MD [address] [place], [place] 8839795 Consulting Hematology/Oncology 05/15/18 Halima [place] ([place]), [place] [address] [place], [place] 9315106 Specialty Front Desk Host Hospice & Palliative Medicine 05/15/18 Nancie Low, RN [address] [place], [place] [phone] Specialty Front Desk Host Hematology/Oncology 04/26/22 Marta Lui, RN [address] [place] [address] Manager Cardiovascular 02/22/23 Murray Mooney MD [address] [place], [place] 33038691 Hematology/Oncology 05/03/23 Leno Márquez MD [address] [address] Orthopedics 08/22/23 Loretta Leon PA-C [address] [place], [place] 34260691 Pulmonary and Critical Care Medicine 11/24/23 Mechanical Maintenance Technician Relationship Specialty Start Date End Date Ovidio Vincent MD [address] [place], [place] [phone] PCP - General Family Medicine 03/16/21 Becky Leija MD [address] [place], [place] [id number] Physician Radiation Oncology 11/24/17 Tato Castro MD [address] [place], [place] [phone] Pain Management Anesthesiology 01/30/18 Santos Woods MD 9507 [facility] [address] 4056895 Physician Blood and Marrow Transplant 05/04/18 Fidel De La Garza MD [address] [place] [address] Consulting Hematology/Oncology 05/15/18 Halima [place] ([place]), [place] [address] [place], [place] 7517406 Specialty Front Desk Host Hospice & Palliative Medicine 05/15/18 Nancie Low, ALICIA [address] [place] [address] Specialty Front Desk Host Hematology/Oncology 04/26/22 Marta Lui, ALICIA [address] [place] [address] Manager Cardiovascular 02/22/23 Murray Mooney MD [address] [place], [place] 36089691 Hematology/Oncology 05/03/23 Leno Márquez MD [address] [address] Orthopedics 08/22/23 Loretta Leon, PA-C [address] [place] [address] Pulmonary and Critical Care Medicine 11/24/23 Mechanical Maintenance Technician Relationship Specialty Start Date End Date Ovidio Vincent MD [address] [place], [place] 246181 PCP - General Family Medicine 03/16/21 Becky Leija MD [address] [place], [place] 051721 Physician Radiation Oncology 11/24/17 [facility] [address] [place] [address] 061751 Pain Management Anesthesiology 01/30/18 Santos Woods MD [address] [address] Physician Blood and Marrow Transplant 05/04/18 Fidel De La Garza MD [address] [place] 0200695 Consulting Hematology/Oncology 05/15/18 Halima [place] ([place]n), [place] [address] [place], [place] 1980806 Specialty Front Desk Host Hospice & Palliative Medicine 05/15/18 Nancie Low, ALICIA [address] [place], [place] 978851 Specialty Front Desk Host Hematology/Oncology 04/26/22 Marta Lui RN [address] [place] [address] Manager Cardiovascular 02/22/23 Murray Mooney MD [address] [place] [address] Hematology/Oncology 05/03/23 Leno Márquez MD [address] [address] Orthopedics 08/22/23 Loretta Leon, PA-C [address] [place] [address] Pulmonary and Critical Care Medicine 11/24/23 Mechanical Maintenance Technician Relationship Specialty Start Date End Date Ovidio Vincent MD [address] [place] [address] PCP - General Family Medicine 03/16/21 Becky Leija MD [address] [place] [address] Physician Radiation Oncology 11/24/17 KrissyTato MD [address] [place] [address] Pain Management Anesthesiology 01/30/18 Santos Woods MD [address] [place] [address] Physician Blood and Marrow Transplant 05/04/18 Fidel De La Garza MD [address] [place] [address] Consulting Hematology/Oncology 05/15/18 Halima [place] ([place]), [place] [address] [place] [address] Specialty Front Desk Host Hospice & Palliative Medicine 05/15/18 Nancie Low, ALICIA [address] [place] [address] Specialty Front Desk Host Hematology/Oncology 04/26/22 Marta Lui, ALICIA [address] [place], [place] 4691431 Manager Cardiovascular 02/22/23 Murray Mooney MD [address] [place] [address] Hematology/Oncology 05/03/23 Leno Márquez MD [address] [phone] Orthopedics 08/22/23 Loretta Leon, PA-C [address] [place] [address] Pulmonary and Critical Care Medicine 11/24/23 Mechanical Maintenance Technician Relationship Specialty Start Date End Date Ovidio Vincent MD [address] [place] [address] PCP - General Family Medicine 03/16/21 Becky Leija MD [address] [place] [address] Physician Radiation Oncology 11/24/17 Tato Castro MD [address] [place] [address] Pain Management Anesthesiology 01/30/18 Santos Woods MD 9500 [facility] [address] [place], [place] 0056395 Physician Blood and Marrow Transplant 05/04/18 Fidel De La Garza MD [address] [place] [address] Consulting Hematology/Oncology 05/15/18 Halima [place] ([place]), [place] [address] [place] [address] Specialty Front Desk Host Hospice & Palliative Medicine 05/15/18 Nancie Low, ALICIA [address] [facility]ITAL[facility] [place], [place] [phone] Specialty Front Desk Host Hematology/Oncology 04/26/22 Marta Lui, ALICIA [address] [place] [address] Manager Cardiovascular 02/22/23 Murrya Mooney MD [address] [place] [address] Hematology/Oncology 05/03/23 Leno Márquez MD [address] [phone] Orthopedics 08/22/23 Loretta Leon, PA-C [address] [place] [address] Pulmonary and Critical Care Medicine 11/24/23 Mechanical Maintenance Technician Relationship Specialty Start Date End Date Ovidio Vincent MD [address] [place] [address] PCP - General Family Medicine 03/16/21 Becky Leija MD [address] [facility]ITAL[facility] [place], [place] 152281 Physician Radiation Oncology 11/24/17 Tato Castro MD [address] [place], [place] 966591 Pain Management Anesthesiology 01/30/18 Santos Woods MD [address] [address] Physician Blood and Marrow Transplant 05/04/18 Fidel De La Garza MD [address] [place] [address] Consulting Hematology/Oncology 05/15/18 Halima Cohen ([place]n), [place] [address] [place] [address] Specialty Front Desk Host Hospice & Palliative Medicine 05/15/18 Nancie Low, RN [address] [facility] [place], [place] 46083691 Specialty Front Desk Host Hematology/Oncology 04/26/22 Marta Lui, RN [address] [place] [address] Manager Cardiovascular 02/22/23 Murray Mooney MD [address] [facility]ITAL[facility] [place], [place] 17359691 Hematology/Oncology 05/03/23 Leno Márquez MD [address] [phone] Orthopedics 08/22/23 Loretta Leon, PA-C [address] [facility]ITAL[facility] [place], [place] 61247691 Pulmonary and Critical Care Medicine 11/24/23 Mechanical Maintenance Technician Relationship Specialty Start Date End Date Ovidio Vincent MD [address] [place], [place] [id number] PCP - General Family Medicine 03/16/21 Becky Leija MD [address] [place], [place] [phone] Physician Radiation Oncology 11/24/17 Tato Castro MD [address] [place], [place] 13233691 Pain Management Anesthesiology 01/30/18 Santos Woods MD 9500 [facility] [place] [address] Physician Blood and Marrow Transplant 05/04/18 Fidel De La Garza MD 9509 [facility] [place], [place] 7122395 Consulting Hematology/Oncology 05/15/18 Halima [place] ([place]), [place] [address] [place], [place] 0249206 Specialty Front Desk Host Hospice & Palliative Medicine 05/15/18 Nancie Low, ALICIA [address] [place], [place] [phone] Specialty Front Desk Host Hematology/Oncology 04/26/22 Marta Lui, ALICIA [address] [place] [address] Manager Cardiovascular 02/22/23 Murray Mooney MD [address] [place], [place] 27760691 Hematology/Oncology 05/03/23 Leno Márquez MD [address] [phone] Orthopedics 08/22/23 Loretta Leon, PA-C [address] [place] [address] Pulmonary and Critical Care Medicine 11/24/23 Mechanical Maintenance Technician Relationship Specialty Start Date End Date Ovidio Vincent MD [address] [place], [place] [id number] PCP - General Family Medicine 03/16/21 Becky Leija MD [address] [place], [place] 84878691 Physician Radiation Oncology 11/24/17 KrissyTato MD [address] [place] [address] 028101 Pain Management Anesthesiology 01/30/18 Santos Woods MD [address] [address] Physician Blood and Marrow Transplant 05/04/18 Fidle De La Garza MD [address] [place] [address] Consulting Hematology/Oncology 05/15/18 Halima [place] ([place]n), [place] [address] [place] [address] Specialty Front Desk Host Hospice & Palliative Medicine 05/15/18 Nancie Low, ALICIA [address] [place], [place] [phone] Specialty Front Desk Host Hematology/Oncology 04/26/22 Marta Lui, ALICIA [address] [place], [place] 2589631 Manager Cardiovascular 02/22/23 Murray Mooney MD [address] [place] [address] Hematology/Oncology 05/03/23 Leno Márquez MD [address] [address] Orthopedics 08/22/23 Loretta Leon, PA-C [address] [place] [address] Pulmonary and Critical Care Medicine 11/24/23 Mechanical Maintenance Technician Relationship Specialty Start Date End Date Ovidio Vincent MD [address] [place], [place] 037061 PCP - General Family Medicine 03/16/21 Becky Leija MD [address] [place] [address] Physician Radiation Oncology 11/24/17 KrissyTato MD [address] [place] [address] 442201 Pain Management Anesthesiology 01/30/18 Santos Woods MD [address] [place] [address] Physician Blood and Marrow Transplant 05/04/18 Fidel De La Garza MD [address] [place] [address] Consulting Hematology/Oncology 05/15/18 Halima [place] ([place]), [place] [address] [place] [address] Specialty Front Desk Host Hospice & Palliative Medicine 05/15/18 Nancie Low, ALICIA [address] [place] [address] Specialty Front Desk Host Hematology/Oncology 04/26/22 Marta Lui, ALICIA [address] [place], [place] 2914531 Manager Cardiovascular 02/22/23 Murray Mooney MD [address] [place], [place] [phone] Hematology/Oncology 05/03/23 Leno Márquez MD [address] [phone] Orthopedics 08/22/23 Loretta Leon, PA-C [address] [place] [address] Pulmonary and Critical Care Medicine 11/24/23 Mechanical Maintenance Technician Relationship Specialty Start Date End Date Ovidio Vincent MD [address] [place] [address] PCP - General Family Medicine 03/16/21 Becky Leija MD [address] [place] [address] Physician Radiation Oncology 11/24/17 Tato Castro MD [address] [place] [address] Pain Management Anesthesiology 01/30/18 Santos Woods MD [address]250 [facility] [address] [place] [address] Physician Blood and Marrow Transplant 05/04/18 Fidel De La Garza MD [address] [place] [address] Consulting Hematology/Oncology 05/15/18 Halima [place] ([place] [address] [place] [address] Specialty Front Desk Host Hospice & Palliative Medicine 05/15/18 Nancie Low, ALICIA [address] [facility] [place] [phone] Specialty Front Desk Host Hematology/Oncology 04/26/22 Marta Lui, ALICIA [address] [place] [address] Manager Cardiovascular 02/22/23 Murray Mooney MD [address] [place] [address] Hematology/Oncology 05/03/23 Leno Márquez MD [address] [phone] Orthopedics 08/22/23 Loretta Leon PA-C [address] [place] [address] Pulmonary and Critical Care Medicine 11/24/23 Mechanical Maintenance Technician Relationship Specialty Start Date End Date Ovidio Vincent MD [address]40 [facility] [place] [address] PCP - General Family Medicine 03/16/21 Becky Leija MD [address] [place], [place] 546371 Physician Radiation Oncology 11/24/17 Tato Castro MD [address] [place] [address] Pain Management Anesthesiology 01/30/18 Santos Woods MD [address] 0316395 Physician Blood and Marrow Transplant 05/04/18 Fidel De La Garza MD [address] [place], [place] 6957395 Consulting Hematology/Oncology 05/15/18 Halima [place] ([place]), [place] [address] [place] [address] Specialty Front Desk Host Hospice & Palliative Medicine 05/15/18 Nancie Low, RN [address] [place], [place] [phone] Specialty Front Desk Host Hematology/Oncology 04/26/22 Marta Lui, RN [address] [place] [address] Manager Cardiovascular 02/22/23 Murray Mooney MD [address] [place] [address] Hematology/Oncology 05/03/23 Leno Márquez MD [address] [phone] Orthopedics 08/22/23 Loretta Leon, PA-C [address] [place], [place] [phone] Pulmonary and Critical Care Medicine 11/24/23 Mechanical Maintenance Technician Relationship Specialty Start Date End Date Ovidio Vincent MD [address] [place], [place] [phone] PCP - General Family Medicine 03/16/21 Becky Leija MD [address] [facility] [place], [place] 80026691 Physician Radiation Oncology 11/24/17 Tato Castro MD [address] [place], [place] 76810691 Pain Management Anesthesiology 01/30/18 Santos Woods MD 9500 [facility] [address] [place], [place] 8364495 Physician Blood and Marrow Transplant 05/04/18 Fidel De La Garza MD [address] [place], [place] 5718695 Consulting Hematology/Oncology 05/15/18 Halima [place] ([place]n), [place] [address] [place], [place] 6203806 Specialty Front Desk Host Hospice & Palliative Medicine 05/15/18 Nargis Ortega RN [address] [place], [place] 1222631 Manager Cardiovascular 05/27/21 10/20/22 Ela Alvarez MD [address] [place], [place] 3974631 Hematology/Oncology 04/26/22 05/02/23 Nancie Low, ALICIA [address] [place], [place] [phone] Specialty Front Desk Host Hematology/Oncology 04/26/22 Mechanical Maintenance Technician Relationship Specialty Start Date End Date Ovidio Vincent MD [address] [place], [place] [id number] PCP - General Family Medicine 03/16/21 Becky Leija MD [address] [place], [place] [phone] Physician Radiation Oncology 11/24/17 Tato Castro MD [address] [place], [place] [phone] Pain Management Anesthesiology 01/30/18 Santos Woods MD 9508 [facility] [address] [place] [address] Physician Blood and Marrow Transplant 05/04/18 Fidel De La Garza MD [address] [place], [place] 2556995 Consulting Hematology/Oncology 05/15/18 Halima [place] ([place]), [place] [address] [place], [place] 4334406 Specialty Front Desk Host Hospice & Palliative Medicine 05/15/18 Nancie Low RN [address] [place], [place] 61873691 Specialty Front Desk Host Hematology/Oncology 04/26/22 Marta Lui, ALICIA [address] [place] [address] Manager Cardiovascular 02/22/23 Murray Mooney MD [address] [place], [place] 12152691 Hematology/Oncology 05/03/23 Leno Márquez MD [address] [address] Orthopedics 08/22/23 Loretta Leon PAAndriyC [address] [place] [address] Pulmonary and Critical Care Medicine 11/24/23 Mechanical Maintenance Technician Relationship Specialty Start Date End Date Ovidio Vincent MD [address] [place], [place] [id number] PCP - General Family Medicine 03/16/21 Becky Leija MD [address] [place], [place] [phone] Physician Radiation Oncology 11/24/17 [facility] [address] [place] [address] 202731 Pain Management Anesthesiology 01/30/18 Santos Woods MD [address] [address] Physician Blood and Marrow Transplant 05/04/18 Fidel De La Garza MD [address] [place] [address] Consulting Hematology/Oncology 05/15/18 Halmia Cohen (Rn), [place] [address] [place], [place] 4767506 Specialty Front Desk Host Hospice & Palliative Medicine 05/15/18 Nancie Low, ALICIA [address] [place], [place] [phone] Specialty Front Desk Host Hematology/Oncology 04/26/22 Marta Lui RN [address] [place] [address] Manager Cardiovascular 02/22/23 Murray Mooney MD [address] [place] [address] Hematology/Oncology 05/03/23 Leno Márquez MD [address] [phone] Orthopedics 08/22/23 Loretta Leon PA-C [address] [place], [place] 859531 Pulmonary and Critical Care Medicine 11/24/23 Mechanical Maintenance Technician Relationship Specialty Start Date End Date Ovidio Vincent MD [address] [place], [place] 515931 PCP - General Family Medicine 03/16/21 Becky Leija MD [address] [place], [place] [phone] Physician Radiation Oncology 11/24/17 [facility] [address] [place] [address] Pain Management Anesthesiology 01/30/18 Santos Woods MD [address] [place] [address] Physician Blood and Marrow Transplant 05/04/18 Fidel De La Garza MD [address] [place] [address] Consulting Hematology/Oncology 05/15/18 Halima [place] ([place]), [place] [address] [place] [address] Specialty Front Desk Host Hospice & Palliative Medicine 05/15/18 Nancie Low, ALICIA [address] [place] [address] Specialty Front Desk Host Hematology/Oncology 04/26/22 Marta Lui, ALICIA [address] [place] [address] Manager Cardiovascular 02/22/23 Murray Mooney MD [address] [place] [address] Hematology/Oncology 05/03/23 Leno Márquez MD [address] [phone] Orthopedics 08/22/23 Loretta Leon PA-C [address] [place] [address] Pulmonary and Critical Care Medicine 11/24/23 Mechanical Maintenance Technician Relationship Specialty Start Date End Date Ovidio Vincent MD [address] [place] [address] PCP - General Family Medicine 03/16/21 Becky Leija MD [address] [place] [address] Physician Radiation Oncology 11/24/17 Tato Castro MD [address] [place] [address] Pain Management Anesthesiology 01/30/18 Santos Woods MD [address] [place] 0642295 Physician Blood and Marrow Transplant 05/04/18 Fidel De La Garza MD 9500 [facility] [place], [place] 5219295 Consulting Hematology/Oncology 05/15/18 Halima [place] ([place]), [place] [address] [place] [address] Specialty Front Desk Host Hospice & Palliative Medicine 05/15/18 Nancie Low, AILCIA [address] [facility] [place], [place] 75838691 Specialty Front Desk Host Hematology/Oncology 04/26/22 Marta Lui, ALICIA [address] [place] [address] Manager Cardiovascular 02/22/23 Murray Mooney MD [address] [place] [address] Hematology/Oncology 05/03/23 Leno Márquez MD [address] [phone] Orthopedics 08/22/23 Loretta Leon, PA-C [address] [place] [address] Pulmonary and Critical Care Medicine 11/24/23 Mechanical Maintenance Technician Relationship Specialty Start Date End Date Ovidio Vincent MD [address] [place] [address] PCP - General Family Medicine 03/16/21 Becky Leija MD [address] [facility] [place], [place] [phone] Physician Radiation Oncology 11/24/17 Tato Castro MD [address] [place] [address] [id number] Pain Management Anesthesiology 01/30/18 Santos Woods MD [address] [address] Physician Blood and Marrow Transplant 05/04/18 Fidel De La Garza MD [address] [place], [place] 0119495 Consulting Hematology/Oncology 05/15/18 Halima Cohen ([place]), [place] [address] [place], [place] 1815806 Specialty Front Desk Host Hospice & Palliative Medicine 05/15/18 Nancie Low, ALICIA [address] [place], [place] 02004691 Specialty Front Desk Host Hematology/Oncology 04/26/22 Marta Lui, ALICIA [address] [place] [address] Manager Cardiovascular 02/22/23 Murray Mooney MD [address] [place], [place] 52576691 Hematology/Oncology 05/03/23 Leno Márquez MD [address] [address] Orthopedics 08/22/23 Loretta Leon PAAndriyC [address] [place], [place] 73035691 Pulmonary and Critical Care Medicine 11/24/23 Mechanical Maintenance Technician Relationship Specialty Start Date End Date Ovidio Vincent MD [address] [place], [place] 335681 PCP - General Family Medicine 03/16/21 Becky Leija MD [address] [place], [place] [phone] Physician Radiation Oncology 11/24/17 Tato Castro MD [address] [place], [place] 808881 Pain Management Anesthesiology 01/30/18 Snatos Woods MD 9500 [facility] [address] [address] Physician Blood and Marrow Transplant 05/04/18 Fidel De La Garza MD [address]00 [place], [place] 5130995 Consulting Hematology/Oncology 05/15/18 Halima Cohen (Rn), [place] [address] [place], [place] 1578506 Specialty Front Desk Host Hospice & Palliative Medicine 05/15/18 Nancie Low, ALICIA [address] [place], [place] 51468691 Specialty Front Desk Host Hematology/Oncology 04/26/22 Murray Mooney MD [address] [place], [place] 47456691 Hematology/Oncology 05/03/23 Leno Márquez MD [address] [address] Orthopedics 08/22/23 Loretta Leon PA-C [address] [place], [place] 524081 Pulmonary and Critical Care Medicine 11/24/23 Mechanical Maintenance Technician Relationship Specialty Start Date End Date Ovidio Vincent MD [address] [place], [place] [id number] PCP - General Family Medicine 03/16/21 Becky Leija MD [address] [place], [place] [phone] Physician Radiation Oncology 11/24/17 Tato Castro MD [address] [place] [address] [phone] Pain Management Anesthesiology 01/30/18 Santos Woods MD [address] [facility] [address] [place], [place] 2697895 Physician Blood and Marrow Transplant 05/04/18 Fidel De La Garza MD [address] [place] [address] Consulting Hematology/Oncology 05/15/18 Halima [place] ([place]n), [place] [address] [address] [place], [place] [phone] Specialty Front Desk Host Hospice & Palliative Medicine 05/15/18 Nancie Low, ALICIA [address] [place], [place] [id number] Specialty Front Desk Host Hematology/Oncology 04/26/22 Murray Mooney MD [address] [place], [place] [phone] Hematology/Oncology 05/03/23 Leno Márquez MD [address] [id number] Orthopedics 08/22/23 Loretta Leon, PAAndriyC [address] [facility]ITAL[facility] [place], [place] 928801 Pulmonary and Critical Care Medicine 11/24/23 Mechanical Maintenance Technician Relationship Specialty Start Date End Date Ovidio Vincent MD [address] [place], [place] [phone] PCP - General Family Medicine 03/16/21 Becky Leija MD [address] [facility] [place], [place] [id number] Physician Radiation Oncology 11/24/17 Tato Castro MD [address] [place], [place] [phone] Pain Management Anesthesiology 01/30/18 Santos Woods MD [address] [id number] Physician Blood and Marrow Transplant 05/04/18 Fidel De La Garza MD [address] [place] [address] Consulting Hematology/Oncology 05/15/18 Halima [place] ([place]), [place] [address] [place] [place], [place] [phone] Specialty Front Desk Host Hospice & Palliative Medicine 05/15/18 Nancie Low, ALICIA [address] [place], [place] [phone] Specialty Front Desk Host Hematology/Oncology 04/26/22 Murray Mooney MD [address] [place], [place] 669271 Hematology/Oncology 05/03/23 Leno Márquez MD [address] [phone] Orthopedics 08/22/23 Loretta Leon PA-C [address] [place] [address] Pulmonary and Critical Care Medicine 11/24/23 Rebecca Jansen APRN.[facility] [address] [place], [place] [address]17 [phone] Signing Agent Family [facility] 08/24/24 Leslye Winter PA-C [address] [place] [address] [facility] 08/24/24 Mechanical Maintenance Technician Relationship Specialty Start Date End Date Ovidio Vincent MD [address] [place] [address] PCP - General Family Medicine 03/16/21 Becky Leija MD [address] [place] [address] Physician Radiation Oncology 11/24/17 Tato Castro MD [address] [place] [address] Pain Management Anesthesiology 01/30/18 Santos Woods MD [address] [place] [address] Physician Blood and Marrow Transplant 05/04/18 Fidel De La Garza MD [address] [place] [address] Consulting Hematology/Oncology 05/15/18 Halima [place] ([place]), [place] [address] [place] [address] Specialty Front Desk Host Hospice & Palliative Medicine 05/15/18 Nancie Low, ALICIA [address] [place] [phone] Specialty Front Desk Host Hematology/Oncology 04/26/22 Murray Mooney MD [address] [facility] [place] [address] Hematology/Oncology 05/03/23 Leno Márquez MD [address] [phone] Orthopedics 08/22/23 Loretta Leon PA-C [address] [place] [address] Pulmonary and Critical Care Medicine 11/24/23 Rebecca Jansen, ESSENCE.WASTEWATER DESIGN ENGINEER [address] [place] [address] Signing Agent Family Medicine 08/24/24 Leslye Winter PA-C [address] [place] [address] Signing Agent Family Medicine 08/24/24 Mechanical Maintenance Technician Relationship Specialty Start Date End Date Ovidio Vincent MD [address] [place] [address] PCP - General Family Medicine 03/16/21 Becky Leija MD [address] [place] [address] Physician Radiation Oncology 11/24/17 Tato Castro MD [address] [place] [address] Pain Management Anesthesiology 01/30/18 Santos Woods MD [address] [phone] Physician Blood and Marrow Transplant 05/04/18 Fidel De La Garza MD [address] [facility] [place] [address] Consulting Hematology/Oncology 05/15/18 Halima [place] [address] [place], [place] 7981006 Specialty Front Desk Host Hospice & Palliative Medicine 05/15/18 Nancie Low, ALICIA [address] [place] [address] Specialty Front Desk Host Hematology/Oncology 04/26/22 Murray Mooney MD [address] [place] [address] Hematology/Oncology 05/03/23 Leno Márquez MD [address] [address] Orthopedics 08/22/23 Loretta Leon PA-C [address] [place], [place] 939381 Pulmonary and Critical Care Medicine 11/24/23 Rebecca Jansen APRN.WASTEWATER DESIGN ENGINEER [address] [place], [place] 908081 Signing Agent Family Medicine 08/24/24 Leslye Winter PA-C [address] [place] [address] [phone] Signing Agent Family [facility] 08/24/24 Mechanical Maintenance Technician Relationship Specialty [place] [address] [place] [address] [phone] PCP - General Family Medicine 03/16/21 Becky Leija MD [address] [place], [place] 687291 Physician Radiation Oncology 11/24/17 [facility] [address] [place] [address] [phone] Pain Management Anesthesiology 01/30/18 Santos Woods MD [address] [address] Physician Blood and Marrow Transplant 05/04/18 Fidel De La Garza MD [address] [place] [address] Consulting Hematology/Oncology 05/15/18 Hal[place] ([place]), [place] [address] [place] [address] Specialty Front Desk Host Hospice & Palliative Medicine 05/15/18 Nancie Low, ALICIA [address] [place] [address] Specialty Front Desk Host Hematology/Oncology 04/26/22 Murray Mooney MD [address] [place] [address] Hematology/Oncology 05/03/23 Leno Márquez MD [address] [phone] Orthopedics 08/22/23 Loretta Leon PA-C [address] [place] [address] Pulmonary and Critical Care Medicine 11/24/23 Rebecca Jansen APRN.WASTEWATER DESIGN ENGINEER [address] [place] [address] Signing Agent Family Medicine 08/24/24 Leslye Winter PA-C [address] [place] [address] Signing Agent Family [facility] 08/24/24 Mechanical Maintenance Technician Relationship Specialty Start Date End Date Ovidio Vincent MD [address] [place] [address] PCP - General Family Medicine 03/16/21 Becky Leija MD [address] [place] [address] Physician Radiation Oncology 11/24/17 Tato Castro MD [address] [place] [address] Pain Management Anesthesiology 01/30/18 Santos Woods MD [address]00 [facility] [address] [place], [place] 5272795 Physician Blood and Marrow Transplant 05/04/18 Fidel De La Garza MD [address] [place], [place] 3010595 Consulting Hematology/Oncology 05/15/18 Halima [place] ([place]n), [place] [address] [place], [place] 0094406 Specialty Front Desk Host Hospice & Palliative Medicine 05/15/18 Nancie Low, ALICIA [address] [place], [place] [phone] Specialty Front Desk Host Hematology/Oncology 04/26/22 Murray Mooney MD [address] [place], [place] 188841 Hematology/Oncology 05/03/23 Leno Márquez MD [address] [phone] Orthopedics 08/22/23 Loretta Leon PA-C [address] [place] [address] Pulmonary and Critical Care Medicine 11/24/23 Rebecca Jansen APRN.WASTEWATER DESIGN ENGINEER [address] [place], [place] [phone] Signing Agent Family Medicine 08/24/24 Leslye Winter PA-C [address] [place], [place] 380419 [phone] Signing Agent Family Medicine 08/24/24 Mechanical Maintenance Technician Relationship Specialty Start Date End Date Ovidio Vincent MD [address] [place], [place] [phone] PCP - General Family Medicine 03/16/21 Becky Leija MD [address] [place], [place] [phone] Physician Radiation Oncology 11/24/17 Tato Castro MD [address] [place], [place] [phone] Pain Management Anesthesiology 01/30/18 Santos Woods MD [address] [id number] Physician Blood and Marrow Transplant 05/04/18 Fidel De La Garza MD [address] [place] [address] Consulting Hematology/Oncology 05/15/18 Halima [place] ([place]n), [place] [address] [address] [place], [place] 7327806 Specialty Front Desk Host Hospice & Palliative Medicine 05/15/18 Nancie Low, ALICIA [address] [facility]ITAL[facility] [place], [place] [phone] Specialty Front Desk Host Hematology/Oncology 04/26/22 Murray Mooney MD [address] [place], [place] [phone] Hematology/Oncology 05/03/23 Leno Márquez MD [address] [id number] Orthopedics 08/22/23 Loretta Loen PA-C [address] [place], [place] [phone] Pulmonary and Critical Care Medicine 11/24/23 Rebecca Jansen APRN.WASTEWATER DESIGN ENGINEER [address] [place], [place] [phone] [facility] 08/24/24 Leslye Winter PA-C [address] [place], [place] [phone] [facility] 08/24/24 Mechanical Maintenance Technician Relationship Specialty Start Date End Date Ovidio Vincent MD [address] [place], [place] [phone] PCP - General Family Medicine 03/16/21 Becky eLija MD [address] [place], [place] [phone] Physician Radiation Oncology 11/24/17 Tato Castro MD [address] [place] [address] [phone] Pain Management Anesthesiology 01/30/18 Santos Woods MD [address] [place] [address] Physician Blood and Marrow Transplant 05/04/18 Fidel De La Garza MD [address] [place] [address] Consulting Hematology/Oncology 05/15/18 Halima [place] ([place]n), [place] [address] [address] [place] [phone] Specialty Front Desk Host Hospice & Palliative Medicine 05/15/18 Nancie Low, ALICIA [address] [place], [place] [phone] Specialty Front Desk Host Hematology/Oncology 04/26/22 Murray Mooney MD [address] [address] Hematology/Oncology 05/03/23 Leno Márquez MD [address] [phone] Orthopedics 08/22/23 Loretta Leon PA-C [address] [place] [place] 210781 Pulmonary and Critical Care Medicine 11/24/23 Rebecca Jansen APRN.WASTEWATER DESIGN ENGINEER [address] [place], [place] 511271 [facility] 08/24/24 Leslye Winter PA-C [address] [place], [place] 734784 [phone] [facility] 08/24/24 Mechanical Maintenance Technician Relationship Specialty Start Date End Date Ovidio Vincent MD [address] [place] [address] PCP - General Family Medicine 03/16/21 Becky Leija MD [address] [place] [address] Physician Radiation Oncology 11/24/17 Tato Castro MD [address] [place], [place] 113991 Pain Management Anesthesiology 01/30/18 Santos Woods MD [address] [facility] [address] [place], [place] 3840895 Physician Blood and Marrow Transplant 05/04/18 Fidel De La Garza MD [address] [place], [place] 4756095 Consulting Hematology/Oncology 05/15/18 Hal[place] ([place]), [place] [address] [place], [place] 0312506 Specialty Front Desk Host Hospice & Palliative Medicine 05/15/18 Nancie Low RN [address] [place], [place] [phone] Specialty Front Desk Host Hematology/Oncology 04/26/22 Murray Mooney MD [address] [facility] [place] [address] Hematology/Oncology 05/03/23 Leno Márquez MD [address] [phone] Orthopedics 08/22/23 Loretta Leon PA-C [address] [address] Pulmonary and Critical Care Medicine 11/24/23 Rebecca Jansen APRN.WASTEWATER DESIGN ENGINEER [address] [place] [address] Signing Agent Family Medicine 08/24/24 Leslye Winter PA-C [address] [place], [place] 400511 Signing Agent Family Medicine 08/24/24 Mechanical Maintenance Technician Relationship Specialty Start Date End Date Ovidio Vincent MD [address] [place], [place] 165131 PCP - General Family Medicine 03/16/21 Becky Leija MD [address] [place], [place] [phone] Physician Radiation Oncology 11/24/17 Tato Castro MD [address] [place] [address] 840331 Pain Management Anesthesiology 01/30/18 Santos Woods MD [address] 8912195 Physician Blood and Marrow Transplant 05/04/18 Fidel De La Garza MD [address] [facility] [place] [address] Consulting Hematology/Oncology 05/15/18 Hal[place] ([place] [address] [place] 2746606 Specialty Front Desk Host Hospice & Palliative Medicine 05/15/18 Nancie Low, ALICIA [address] [place], [place] [phone] Specialty Front Desk Host Hematology/Oncology 04/26/22 Murray Mooney MD [address] [place], [place] 38938691 Hematology/Oncology 05/03/23 Leno Márquez MD [address] [address] Orthopedics 08/22/23 Loretta Leon PA-C [address] [place] [address] Pulmonary and Critical Care Medicine 11/24/23 Rebecca Jansen APRN.WASTEWATER DESIGN ENGINEER [address] [place], [place] 037231 Signing Agent Family Medicine 08/24/24 Leslye Winter PA-C [address] [place] [address] Signing Agent Family [facility] 08/24/24 Mechanical Maintenance Technician Relationship Specialty [place] [address] [place] [address] PCP - General Family Medicine 03/16/21 Becky Leija MD [address] [place] [address] Physician Radiation Oncology 11/24/17 KrissyTato MD [address] [place] [address] Pain Management Anesthesiology 01/30/18 Santos Woods MD [address] [place] [address] Physician Blood and Marrow Transplant 05/04/18 Fidel De La Garza MD [address] [place] [address] Consulting Hematology/Oncology 05/15/18 Halima [place] ([place] [address] [place] [address] Specialty Front Desk Host Hospice & Palliative Medicine 05/15/18 Nancie Low, ALICIA [address] [place], [place] 347541 Specialty Front Desk Host Hematology/Oncology 04/26/22 Murray Mooney MD [address] [place] [address] Hematology/Oncology 05/03/23 Leno Márquez MD [address] [phone] Orthopedics 08/22/23 Loretta Leon PA-C [address] [place], [place] 251981 Pulmonary and Critical Care Medicine 11/24/23 Rebecca Jansen APRN.WASTEWATER DESIGN ENGINEER [facility]0 [place], [place] 903210 [phone] Signing Agent Family Medicine 08/24/24 Leslye Winter PA-C [address] [place] [address] Signing Agent Family Medicine 08/24/24 Mechanical Maintenance Technician Relationship Specialty Start Date End Date Ovidio Vincent MD [address] [place], [place] 833666 [phone] PCP - General Family Medicine 03/16/21 Becky Leija MD [address] [place] [address] Physician Radiation Oncology 11/24/17 Tato Castro MD [address] [place], [place] [phone] Pain Management Anesthesiology 01/30/18 Santos Woods MD 9500 [facility] [address] [place] [address] Physician Blood and Marrow Transplant 05/04/18 Fidel De La Garza MD [address] [place], [place] 3438595 Consulting Hematology/Oncology 05/15/18 Halima [place] ([place] [address] [place] [address] Specialty Front Desk Host Hospice & Palliative Medicine 05/15/18 Nancie Low, RN [address] [place], [place] 13066691 Specialty Front Desk Host Hematology/Oncology 04/26/22 Murray Mooney MD [address] [place], [place] [phone] Hematology/Oncology 05/03/23 Leno Márquez MD [address] [phone] Orthopedics 08/22/23 Loretta Leon, PA-C [address] [place], [place] [phone] Pulmonary and Critical Care Medicine 11/24/23 Rebecca Jansen APRN.WASTEWATER DESIGN ENGINEER [address] [place], [place] [phone] Signing Agent Family Medicine 08/24/24 Leslye Winter PA-C [address] [place], [place] [phone] Signing Agent Family [facility] 08/24/24 Mechanical Maintenance Technician Relationship Specialty Start Date End Date Ovidio Vincent MD [address] [place], [place] [phone] PCP - General Family Medicine 03/16/21 Becky Leija MD [address] [place], [place] [phone] Physician Radiation Oncology 11/24/17 Tato Castro MD [address] [place] [address] [phone] Pain Management Anesthesiology 01/30/18 Santos Woods MD [address] [place] [address] Physician Blood and Marrow Transplant 05/04/18 Fidel De La Garza MD [address] [place] [address] Consulting Hematology/Oncology 05/15/18 Hal[place] ([place] [address] [place] [address] Specialty Front Desk Host Hospice & Palliative Medicine 05/15/18 Nancie Low, ALICIA [address] [place], [place] [phone] Specialty Front Desk Host Hematology/Oncology 04/26/22 Murray Mooney MD [address] [facility] [place], [place] [phone] Hematology/Oncology 05/03/23 Leno Márquez MD [address] [place] [address] Orthopedics 08/22/23 Loretta Leon PA-C [address] [place], [place] [phone] Pulmonary and Critical Care Medicine 11/24/23 Leslye Winter PA-C [address] [place] [address] Signing Agent Family Medicine 08/24/24 Team Status: Active Member [...] February 17, 2025 End: February 17, 2025 Mechanical Maintenance Technician Relationship Specialty Start Date End Date Ovidio Vincent MD [address] [place] [address] PCP - General Family Medicine 03/16/21 Becky Leija MD [address] [place] [address] Physician Radiation Oncology 11/24/17 KrissyTato MD [address] [place], [place] [phone] Pain Management Anesthesiology 01/30/18 Santos Woods MD [address] [phone] Physician Blood and Marrow Transplant 05/04/18 Fidel De La Garza MD [address]99 [facility] [place], [place] 0073995 Consulting Hematology/Oncology 05/15/18 Halima [place] (Rn), [place] [address] [place] [phone] Specialty Front Desk Host Hospice & Palliative Medicine 05/15/18 Nancie Low, ALICIA [address] [place], [place] 060641 Specialty Front Desk Host Hematology/Oncology 04/26/22 Murray Mooney MD [address] [place] [address] Hematology/Oncology 05/03/23 Leno Márquez MD [address] [address] [address] [place] [address] Orthopedics 08/22/23 Loretta Leon PA-C [address] [place] [address] Pulmonary and Critical Care Medicine 11/24/23 Rebecca Jansen APRN.WASTEWATER DESIGN ENGINEER [address] [place] [address] Signing Agent [facility] 02/17/25 Leslye Winter PA-C [address] [place], [place] 304091 [facility] 02/17/25 Team Status: Inactive Member Role Status [...] section and content) DATE CREATED AUTHOR 11/03/2022 [facility] DATE CREATED AUTHOR AUTHOR'S ORGANIZ ATION 03/01/2025 [facility] DATE CREATED AUTHOR AUTHOR'S ORGANIZ ATION 03/03/2025 [facility] FOR RECORDS PERTAINING TO PATIENTS WHO [...] BE BASED ON THE PRIMARY CLINICAL RECORDS. [facility]. provides no warranty or guarantee of the accuracy or completeness of information in this document.
[2025-03-04] MEDS: Lactated Ringers 1,000 ML 15 ML IV (06:00)
[2025-03-04] MEDS: Magnesium 2 GM for ERAS IV (06:05)
[2025-03-04] MEDS: Acetaminophen 500 MG Tablet 1000 MG PO (06:23)
--- NOTE | 2025-03-04 06:30 | RAD_ITS ---
PROCEDURE: SPINE 1 VIEW ANY LEVEL 03/04/2025 REASON FOR EXAM: OPEN THORACIC LAMINECTOMY, SPINAL CORD STIM PLACEMENT TECHNIQUE: SPINE 1 VIEW ANY LEVEL Fluoroscopy time 17.1 seconds. Radiation dose 6.54 mGy. 2 spot images are provided. COMPARISON: 12/05/2024. FINDINGS: Chronic compression fracture of T12. Spinal stimulator is noted. RAD/Spine 1 View Any Level IMPRESSION: Intraoperative fluoroscopic images. Reading Location: [facility]
--- NOTE | 2025-03-04 06:41 | PRE.ANES_ITS ---
ASA Classification* ASA Classification ASA Classification: 3 (Hx DVT, hx Afib (should be in sinus), COPD, HTN, PVCs, hx multiple myeloma, T2DM) Assessment & Plan Anesthesia* Anesthesia Assessment Anesthesia Assessment: Discussed sedation and/or anesthesia options, risks, benefits, and alternatives with patient/parents/legal guardian/POA. Questions invited. The patient/parents/legal guardian/POA seems to understand and agrees to proceed with anesthesia plan. Reviewed the physical assessment, medical history, allergy history and patient home medications list prior to surgery/procedure/anesthetic and documented any changes. Performed airway and anesthesia risk assessments. Anesthesia Type Anesthesia Type: General History Source History Obtained from:: Patient and Chart Anesthesia Focused Assessment* Temperature: 98.4 F Pulse Rate: 72 Blood Pressure: 130/73 Respiratory Rate: 16 Pulse Ox: 99 Oxygen Delivery Method: Room Air Airway Assessment Mouth opens: >3 cm Mallampati Score: III Teeth Condition: Intact Neck Range of motion (ROM): Full ROM Labs Anesthesia Preop lab: CBC WBC 5.7 K/mm3 (4.4-11.0) 02/17/25 11:42 02/17/25 RBC 5.11 M/mm3 (4.6-6.2) 02/17/25 11:42 02/17/25 Hgb 14.4 g/dL (13.0-16.5) 02/17/25 11:42 02/17/25 Hct 44.3 % (40-54) 02/17/25 11:42 02/17/25 Plt Count 168 K/mm3 (150-450) 02/17/25 11:42 02/17/25 CHEMISTRY Potassium 4.4 mmol/L (3.3-5.1) 02/17/25 11:42 02/17/25 Sodium 137 mmol/L (133-145) 02/17/25 11:42 02/17/25 Magnesium 1.8 mg/dL (1.5-2.2) 02/17/25 11:42 02/17/25 BUN 22 mg/dL (4-19) H 02/17/25 11:42 02/17/25 Creatinine 1.17 mg/dL (0.70-1.20) 02/17/25 11:42 02/17/25 Glucose 129 mg/dL (70-99) H 02/17/25 11:42 02/17/25 POC Glucose 136 mg/dL (74-106) H 01/14/23 06:14 01/14/23 TSH 3.03 uIU/mL (0.358-3.74) 05/02/23 10:36 COAG Pre-Assessment Diagnosis/Proposed Procedure Planned Operative Procedure(s): Open thoracic laminectomy, spinal cord stimulator placement Anesthesia History 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 When Was Last Pacemaker Check QUESTION #4 FULL TEXT: You/Your Family Experience fever (hyperthermia) with Anesthesia Last Oral Intake Last Oral intake: Last Oral Intake NPO since 04:30 03/04/25 06:14 Meds taken in AM with sips of No 03/04/25 06:14 water? 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 supervisor Female No 02/04/25 09:31 HX of Motion Sickness No 02/04/25 09:31 HX of N/V After Surgery No 02/04/25 09:31 Non-Smoker Yes 02/04/25 09:31 Duration of Surgery greater Yes 02/04/25 09:31 than 60 minutes Number of Risk Factors 2 02/04/25 09:31 PONV Score Moderate Risk 02/04/25 09:31 Height & Weight Height & Weight: Anesthesia: Height & Weight Height 5 ft 10 in 03/04/25 06:14 Weight: 92 kg 03/04/25 06:14 Body Mass Index (BMI) 29.0 03/04/25 06:14 Respiratory Assessment Respiratory Assessment - aging department supervisor: Respiratory Tract Infection Hx - aging department supervisor Hx Respiratory Tract Infection No 02/05/25 09:39 STOP Sleep Apnea STOP Sleep Apnea - aging department supervisor: STOP Sleep Apnea - aging department supervisor Hx Hypertension Yes: CONTROLLED ON MED 02/05/25 09:39 Hx Sleep Apnea No 02/05/25 09:39 CPAP BIPAP Do you snore loudly (louder No 02/04/25 09:31 than talking or can be heard Do you often feel tired/ No 02/04/25 09:31 fatigued/ sleepy during daytime? Has anyone observed you stop No 02/04/25 09:31 breathing during sleep? STOP Results Negative 02/04/25 09:31 QUESTION #5 FULL TEXT : Do you snore loudly (louder than talking or can be heard through closed doors)? 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 Specify any problems Hx of Preganancy in last 3 N/A 02/04/25 09:31 Months Nurse Filling Out Transfusion VCHRISTIN 02/04/25 09:31 & Questions: Date: 02/04/25 02/04/25 09:31 Time: 09:32 02/04/25 09:31 Patient unable to answer at this time (ie. confused, unrespo /Reproduction History /Reproductive History - aging department supervisor: /Reproductive Hx- aging department supervisor Hx Now No 02/04/25 09:31 Gestational Age (in weeks): EDC: Hx Hx Para Hx Section SAB No 02/05/25 09:39 Active Medications Active Medications: Current Medications Generic Name Dose Route Start Last Admin Trade Name Freq PRN Reason Stop Dose Admin Acetaminophen 1,000 mg 03/04/25 07:30 03/04/25 06:23 Acetaminophen 500 Mg Tablet PO 03/04/25 07:31 1,000 mg PREOP ONE Administration Cefazolin Sodium 2 gm/ Sodium 110 mls @ 150 mls/hr 03/04/25 07:30 Chloride IV 03/04/25 08:13 INTRAOP ONE Tranexamic Acid 1,000 mg/ 110 mls @ 440 mls/hr 03/04/25 07:30 Sodium Chloride IV 03/04/25 07:44 INTRAOP ONE Tranexamic Acid 1,000 mg/ 110 mls @ 440 mls/hr 03/04/25 07:30 Sodium Chloride IV 03/04/25 07:44 INTRAOP ONE Magnesium Sulfate 2 gm/ 104 mls @ 208 mls/hr 03/04/25 07:30 03/04/25 06:05 Dextrose IV 03/04/25 07:59 208 mls/hr INTRAOP ONE Administration Lactated Ringer's 1,000 mls @ 15 mls/hr 03/04/25 05:45 03/04/25 06:00 IV 15 mls/hr .Q48H DAVID Administration Insulin Human Lispro 1 - 6 unit 03/04/25 07:30 Insulin Lispro 100 Unit/Ml Insuln.Pen SC Q4H PRN PRN BG>/= 180, SEE PROTOCOL Protocol PFSH Medical History Pre-op testing Wears hearing aid Wears glasses Cancer Multiple myeloma History of steroid therapy Ambulates with cane High cholesterol Back pain Injury of back Injury of head and neck Gastric reflux Former smoker History of edema History of stress test History of echocardiogram History of Holter monitoring Cardiology follow-up encounter Joint infection of right wrist DVT of lower extremity, bilateral Abnormal ECG Paroxysmal atrial fibrillation Essential hypertension History of multiple myeloma GERD (gastroesophageal reflux disease) Rheumatoid arthritis Osteoarthritis Diabetes mellitus COPD (chronic obstructive pulmonary disease) Hyperlipidemia Debility Thoracic spinal stenosis Bone tumor Home Medications ?Medication ?Instructions ?Recorded ?Last Taken ?Type aspirin 81 mg tablet,delayed 81 mg PO DAILY Heart 12/1803/03/25 08:30 History release calcium carb-ergocalciferol (vit 200 tab PO DAILY Supp lment 01/05/23 03/03/25 08:30 History D2) 600 mg calcium-200 unit tablet cholecalciferol (vitamin D3) 50 50 mcg PO DAILY Supple ment 01/05/23 Unknown History mcg (2,000 unit) tablet cyanocobalamin (vitamin B-12) 1,000 mcg PO DAILY Suppl ement 01/05/23 03/03/25 08:30 History 1,000 mcg capsule losartan 25 mg tablet 12.5 mg PO DAILY BP 01/05/23 03/03/25 08:30 History metformin 1,000 mg tablet 1,000 mg PO BID DM 01/05/23 03/03/25 19:30 History multivitamin 1 tab PO DAILY Supplement 03/03/25 08:30 History omeprazole 40 mg capsule,delayed 40 mg PO DAILY GERD 0 01/05/23 03/03/25 08:30 History release dapagliflozin propanediol 10 mg 10 mg PO DAILY 3 03/03/25 08:30 History tablet (Farxiga) fluticasone fur. 100 mcg-umeclid 1 inh inhalation SUSHIL Y 05/02/23 03/03/25 08:30 History 62.5 mcg-vilant 25 mcg inhalat.powder (Trelegy Ellipta) torsemide 20 mg tablet 20 mg PO DAILY 08/17/2302/16 08:30 History atorvastatin 40 mg tablet 40 mg PO QDAY 03/06/2403/03 08:30 History magnesium oxide 250 mg PO BID 08/08/2403/03 19:30 History oxycodone 5 mg tablet 5 mg PO TID PRN pain 5 03/03/25 19:30 History carvedilol 12.5 mg tablet 12.5 mg PO BID #180 tabs 01/1003/03/25 19:30 Rx dulaglutide 3 mg/0.5 mL 3 mg subcut QWEEK 02/04/25 0 02/24/25 History subcutaneous pen injector (Trulicity) Allergy/AdvReac Type Severity Reaction Status Date / Time No Known Allergies Allergy Verified 03/04/25 06:09 Family History Father Cancer, Onset Age: 52 Pancreatic cancer. Diabetes Sister Diabetes Grandmother Diabetes Surgical History Hx of bilateral cataract extraction Hx of eye surgery History of total left knee replacement (TKR) (~08/2023) History of tonsillectomy History of laminectomy History of carpal tunnel surgery of right wrist History of esophagogastroduodenoscopy History of colonoscopy History of bone marrow transplant History of total right knee replacement (TKR) History of reverse total replacement of right shoulder joint History of lumbar fusion Hx of fusion of cervical spine Social History household members: spouse Smoking Status: Former smoker quit date: 09/18/12 alcohol intake: current alcohol intake frequency: a few times a month substance use type: does not use caffeine: Yes Type: coffee Number of servings: 3 Review of Systems (Anesthesia) ROS Narrative System reviewed and no additional complaints, except as documented. Physical Exam Const alert, oriented x3 and average body habitus Resp normal respiratory effort, normal air movement and clear to auscultation bilaterally Cardio regular rate, regular rhythm, no murmurs and diaphoretic
[2025-03-04] MEDS: Insulin Lispro 100 UNIT/ML INSULN.PEN SC (06:43)
[2025-03-04 06:54] LABS: Bedside Glucose 204 mg/dL (74-106)
--- NOTE | 2025-03-04 07:16 | PCM.HP.BLA ---
History and Physical MR#: [id number] Acct: [id number] Name: RONNIE YARBROUGH Rep #: [id number] : 1950 Provider: Dr. Will Gomez MD Age/Sex: 74/M Location: [facility] [place] Status: Signed Intake Vital Signs 12/05/2509:30 02/18/2508:16 02/21/2509:53 Height 5 ft 9 in 5 ft 9 in 5 ft 9 in Weight: 214 lb 214 lb BMI 31.6 31.6 BP 101/57 L Blood Pressure Location Lt brachial Position Sitting Respiration 18 Pulse 66 Pulse Source Palpation Intake Visit Reasons: back pain Chief Complaint: Pre op Accompanied by: Is patient in pain?: Yes Pain scale (1-10): 9 Allergies No Known Allergies Allergy (Verified 02/21/25 09:58) Medications ?Medication ?Instructions ?Recorded ?Confirmed ?Type aspirin 81 mg tablet,delayed 81 mg PO DAILY Heart 01/05/23 02/21/25 History release calcium carb-ergocalciferol (vit 200 tab PO DAILY Supplment 01/05/23 02/21/25 History D2) 600 mg calcium-200 unit tablet cholecalciferol (vitamin D3) 50 50 mcg PO DAILY Supplement 01/05/23 02/21/25 History mcg (2,000 unit) tablet cyanocobalamin (vitamin B-12) 1,000 mcg PO DAILY Supplement 01/05/23 02/21/25 History 1,000 mcg capsule losartan 25 mg tablet 12.5 mg PO DAILY BP 01/05/23 02/21/25 History metformin 1,000 mg tablet 1,000 mg PO BID DM 01/05/23 02/21/25 History multivitamin 1 tab PO DAILY Supplement 01/05/23 02/21/25 History omeprazole 40 mg capsule,delayed 40 mg PO DAILY GERD 01/05/23 02/21/25 History release dapagliflozin propanediol 10 mg 10 mg PO DAILY 05/02/23 02/21/25 History tablet (Farxiga) fluticasone fur. 100 mcg-umeclid 1 inh inhalation DAILY 05/02/23 02/21/25 History 62.5 mcg-vilant 25 mcg inhalat.powder (Trelegy Ellipta) torsemide 20 mg tablet 20 mg PO DAILY 08/17/23 02/21/25 History atorvastatin 40 mg tablet 40 mg PO QDAY 03/06/24 02/21/25 History terbinafine HCl 250 mg tablet 250 mg PO DAILY Antifungal 03/06/24 02/21/25 History magnesium oxide 250 mg PO BID 08/08/24 02/21/25 History oxycodone 5 mg tablet 5 mg PO TID PRN pain 12/05/24 02/21/25 History carvedilol 12.5 mg tablet 12.5 mg PO BID #180 tabs 12/20/24 02/21/25 Rx dulaglutide 3 mg/0.5 mL 3 mg subcut QWEEK 02/04/25 02/21/25 History subcutaneous pen injector (Trulicity) Have you fallen in the past year?: No PFSH Medical History Pre-op testing Wears hearing aid Wears glasses Cancer Multiple myeloma History of steroid therapy Ambulates with cane High cholesterol Back pain Injury of back Injury of head and neck Gastric reflux Former smoker History of edema History of stress test History of echocardiogram History of Holter monitoring Cardiology follow-up encounter Joint infection of right wrist DVT of lower extremity, bilateral Abnormal ECG Paroxysmal atrial fibrillation Essential hypertension History of multiple myeloma GERD (gastroesophageal reflux disease) Rheumatoid arthritis Osteoarthritis Diabetes mellitus COPD (chronic obstructive pulmonary disease) Hyperlipidemia Debility Thoracic spinal stenosis Bone tumor Surgical History Hx of bilateral cataract extraction Hx of eye surgery History of total left knee replacement (TKR) (~08/2023) History of tonsillectomy History of laminectomy History of carpal tunnel surgery of right wrist History of esophagogastroduodenoscopy History of colonoscopy History of bone marrow transplant History of total right knee replacement (TKR) History of reverse total replacement of right shoulder joint History of lumbar fusion Hx of fusion of cervical spine Family History Father Cancer, Onset Age: 52 Pancreatic cancer. DiabetesSister DiabetesGrandmother Diabetes Social History household members: spouse Smoking Status: Former smoker quit date: 09/18/12 alcohol intake: current alcohol intake frequency: a few times a month substance use type: does not use caffeine: Yes Type: coffee Number of servings: 3 HPI back pain Details: This documentation accurately reflects the service provided and the decisions made by me, Dr. Will Gomez MD 02/21/25 0953. Part of today?s visit was documented by Bella Daniel MA, acting as scribe. RONNIE YARBROUGH is a 74 year old M here today for pre op visit. Patient would like to discuss the surgery. He denies any recent injections or physical therapy. Patient does have a history of diabetes with the last a1c was 6.7 which was obtained on 02/17/25. Patient does see a Dr. Gamble with cardiology who he is following up with next week for a stress test. HPI from 01/02/25: RONNIE YARBROUGH is a 74 year old M here today for MRI review of the lumbar spine.Patient denies any changes. 12/05/24: RONNIE YARBROUGH is a 74 year old M NEW patient here today for low back pain. Patient was referred by Dr. Paul pain management. He states that he has been having pain for 15-20 years and it has progressively gotten worse over time. He states that he has had multiple injections and about [address] Paul tried to go in and give him an implant for a pain stimulator but states that it didn't work which was why he referred him to us. He states Dr. Paul was unable to get the leads in during the procedure.He has had 3-4 previous surgeries on his lower back that were done at [facility]. His last back surgery was about 3 years ago and he had an MRI after that surgery that showed compression and a fracture. He is unable to recall the exact dates and what surgeries were done.Patient denies radicular symptoms. Denies numbness, tingling or other associated symptoms. Patient denies having leg weakness but does have some issues with his balance. He has been having balance issues for 3-4 years which has worsened some and he uses a cane to ambulate. He has done PT in the past for before and after his surgeries but is unable to recall how long ago. He does take Oxycodone 5mg for pain 3 times a day that is prescribed to him by Dr. Paul. Patient is going on a mission trip and will be gone for about 7 weeks. He denies numbness and tingling into his hands and does not trop items while holding them. Ortho Exam General General: Yes no acute distress Neurologic: Yes alert Psychologic: Yes reasonable and appropriate Spine SPINE TESTING CERVICAL THORACIC LUMBAR Musculoskeletal Strength 0=absent - 5=normal Details: Examination the back shows midline incision scar throughout the lumbar spine but possibly also going to the lower thoracic spine. There is midline paraspinal tenderness in the lower back. Neurologic evaluation of lower extremity shows 5 x 5 power normal shows normal sensations in all dermatomes. Knee reflexes are 2+. Patient has significant balance issues and had a tough time getting up to exam table.. Romberg's and tandem gait could not be tested. 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 X-rays show L2-S1 posterior spinal fusion instrumented with good healing. There are postsurgical changes of laminectomy in the T11-12 segment . Lumbar degenerative scoliosis noticed. T12 wedging noticed. No dynamic instability but significant thoracolumbar kyphosis. T12 appears to be an old healed fracture without significant T2 hyperintensity. No cord compression noticed in the recent MRI throughout the thoracic spine. As discussed at previous visits, patient will undergo paddle lead placement of spinal cord stimulator to help with the pain as recommended by his pain physician. Since she has not had a successful trial, it will be a paddle trial with a second stage impulse generator placement. Reviewed the benefits and risks of surgery. Risks of surgery include bleeding, infection, hematoma, DVT, pulmonary embolism, persistent pain. Patient understands and agrees to proceed with surgery. Explained in detail the procedure of the paddle lead placement. Discussed post surgery restrictions such as no bending, lifting, or twisting. Answered all questions that he had today in preparation for surgery. Consent was signed. Patient is in agreement.
[2025-03-04] MEDS: Cefazolin 2 GM in 0.9% Normal Saline (100mL Bag) 100 ML IV (07:41)
[2025-03-04] MEDS: TRANEXAMIC ACID 1,000 MG in 0.9% Normal Saline (100mL Bag) 100 ML 440 MG IV ×2 (07:53→10:23)
[2025-03-04] MEDS: Albumin Human 25% (100 mL) 25 GM/100 ML BAG IV (08:18)
[2025-03-04 09:06] LABS: Bedside Glucose 97 mg/dL (74-106)
--- NOTE | 2025-03-04 11:07 | OP.PCM_ITS ---
Procedures Musculoskeletal [id number]-29xxx: Other Procedure See Report Operative Report (Standard) Operative Information Date of Procedure: 03/04/25 Pre-Operative Diagnosis: Chronic low back pain, prior L2-S1 fusion, T11-12 laminectomy Post-Operative Diagnosis: Same Surgery/Procedure Performed: Spinal cord stimulator paddle lead trial, T9-10 and T8-9 laminotomies small appliance assembly supervisor: Yes Structures Engineer: Belinda Snow Tasks completed by visitor information assistant: Closing, Removing tissue, Hemostasis: Electrocautery and Retracting Type of Anesthesia: General RN Documented Start/Stop Times: Operation Date: 03/04/25 07:30 Case Time Into Pre-Op 03/04/25 05:34 Out of Pre-Op 03/04/25 07:27 Anesthesia Start 03/04/25 07:30 Into Room 03/04/25 07:30 Procedure Start 03/04/25 08:11 Procedure End 03/04/25 10:52 Anesthesia End 03/04/25 11:05 Out of Room 03/04/25 11:05 Procedure Start Time: 08:11 Procedure Stop Time: 10:52 Select all DRAINS/GRAFTS/IMPLANTS that apply: Implanted device Implanted device details: Medtronic spinal cord stimulator paddle lead Estimated Blood Loss: 30 cc Specimen collected: No Description of surgery: Preoperative diagnosis: Chronic back pain, prior L2-S1 fusion, prior T11-12 laminectomy Postoperative diagnosis: Same Name of procedure: T9-10, T8-9 laminotomies, spinal cord stimulator paddle lead placement at T8 for trial, CPT 36754, modifier 22 Anesthesia: Gen. endotracheal Estimated blood loss: 30 mL Complications: None Instrumentation used: Medtronic SCS paddle lead. Indications: The patient is a pleasant 74 who presented to us with symptoms of chronic low back pain with prior L2-S1 fusion and prior T11-12 laminectomy. He had an attempted percutaneous spinal cord stimulator trial by pain management which had severe difficulty passing through the scar tissue of the previous surgeries. Patient was referred by pain management for placement of a paddle lead through an open exposure. Since patient had not had a successful trial, he was recommended a paddle trial, which if successful will be followed by staged pulse generator placement. Patient requested surgical placement of permanent lead of the spinal cord stimulator. All risks and benefits of the procedure were explained to the patient. The risks include but are not limited to infection, bleeding, injury to nerves and vessels, need for further procedures, worsening lumbar pathology with potential neurologic symptoms, persistent pain, technical issues with spinal cord stimulator, hem atoma, migration of lead, skin impingement from subcutaneous pulse generator, worsening deformity, DVT, pulmonary embolism, cardiopulmonary event etc. patient understands all the risks and benefits and agrees to the procedure. Procedure: The patient was identified in the preoperative suite using unique patient identifiers. Skin was marked consent was taken and all questions were answered. The patient was then brought back to the operative room and a timeout was performed. General endotracheal anesthesia was given. Intraoperative neuro monitoring leads were applied. The patient was carefully positioned prone on a standard OR table with a Krzysztof frame. Back was prepped and draped in usual fashion. X-rays were performed to identify level of incision. A posterior midline incision was carried out. Bovie was utilized to go down to the spinous processes. Subperiosteal dissection over the lamina was performed. A Heather clamp was then placed on the left presumed T10 transverse process & T9 spinous process, and C-arm AP view was taken. This confirmed the level by counting up from last rib. Previous instrumentation starting at L2 was also utilized for counting levels. T9-10 interspinous ligament was removed with the help of rongeur. Bur was utilized to thin down inferior T9 lamina to perform a laminotomy on the left but also extending across the midline towards the right. Upgoing curettes were utilized to carefully remove ligamentum flavum piecemeal to adequately expose posterior epidural space. The trial passer instrument was passed and confirmed on C-arm to reach the top of T8 vertebra on AP view. This however was found to be slightly towards the left due to the patient's scoliosis. Multiple attempts were made but the Medtronic paddle lead slightly towards the left. Decision was then made to perform a T8-9 laminotomy to direction the superior portion of the paddle better. T8-9 laminotomy was performed from the left and extended towards the midline and beyond to the right. Partial medial facetectomy on both sides at both levels had to be performed through the laminotomy. Significant thickening of the flavum especially in the lateral aspects, likely calcified or ossified made the procedure additionally difficult along with epidural adhesions from prior percutaneous attempts of SCS implantation. The Medtronic paddle lead was then passed and confirmed in AP view to be in midline and reaching T8 vertebra. #1 Prolene was passed through the deep fascia and the paddle was fixated around the suture pass separately for the 2 leads. Lead extensions were applied. Tunneling instrument was used to create a subcutaneous tunnel from a transverse incision placed in the left lumbar region. This allowed the leads to be passed and tunneled through into the lower wound. These leads were then left out through the skin. A subcutaneous pocket was then created to the left of the midline to allow the coiled length of the leads to be held. This pocket was closed with 0 Vicryl. Thorough irrigation was given in the wound and Irrisept was kept in the wound for 1 minute. Hemostasis was achieved utilizing FloSeal. Closure was done in layers with 0 Vicryl interrupted for the deep fascia, 2-0 Vicryl for subcutaneous tissue and fidel for skin. 3-0 nylon was used to narrow down the opening of the leads at the skin stab incision in the left lumbar. Dermabond Prineo dressing was then applied for both the midline incision as well as the lead exit point in the left lumbar. Dressed with 4 x 4 gauze and Tegaderm. the patient was then woken up from anesthesia. Patient was taken to PACU for monitoring in stable condition. The patient tolerated the procedure and no complications occurred. Blood loss was 30 ml. Medtronic instrumentation was utilized. No dural tear was identified intra-operatively. Neuromonitoring was utilized and all potentials stayed baseline. I was scrubbed for the entire procedure and performed the surgery myself. Business Specialist Belinda Snow PA-C. My physician research program assistant was a vital part of this case. They were important in appropriate retraction during the case, and protection of soft tissues during the procedure. Their intimate knowledge of the case and my steps aided in safe and expedient completion of the procedure as well as appropriate position of the patient during the surgery. They were also vital in assisting with closure under my direct supervision. Surgical Findings: See operative note Complications Complications: No
--- NOTE | 2025-03-04 11:15 | PCM.POST.ANE ---
Anesthesia: Postop Eval I Current Vital Signs Temperature: 97 F Pulse Rate: 68 Blood Pressure: 118/74 Respiratory Rate: 16 Pulse Ox: 94 Oxygen Delivery Method: Room Air Fraction of Inspired Oxygen (FIO2): 21 Assessment Airway patent: Yes Spontaneous unlabored respirations: Yes Mental status: Awake and Calm nausea: No Vomiting: No Anesthesia Complication: No Fluid Hydration Crystalloid volume administer (ml): 1,300 Colloids volume administered (ml): 100 Total IV fluid infused: 1,400 Progress Note Post-operative progress note: VSS see PACU notes for details Anesthesia document: Postop Eval 1 completed: Yes
[2025-03-04 11:52] LABS: Bedside Glucose 103 mg/dL (74-106)
[2025-03-04] MEDS: HYDROcodone Bitartrate/Apap 5/325 Tablet PO (12:34)
--- NOTE | 2025-03-04 18:37 | POSTOPAN2_ITS ---
Anesthesia Postop Eval I Sum Postop Eval Completion status Anesthesia document: Postop Eval 1 completed: Yes Anesthesia Postop Eval I Summary Anesthesia Postop Eval I Summary: Anesthesia Postop Eval I: Assessment Summary Airway patent Yes 03/04/25 11:16 RECRUITMENT ASSISTANT.DBAK Spontaneous unlabored Yes 03/04/25 11:16 RECRUITMENT ASSISTANT.DBAK respirations Mental status Awake,Calm 03/04/25 11:16 RECRUITMENT ASSISTANT.DBAK nausea No 03/04/25 11:16 RECRUITMENT ASSISTANT.DBAK Vomiting No 03/04/25 11:16 RECRUITMENT ASSISTANT.DBAK Anesthesia Postop Eval I: Fluid Summary Crystalloid volume administer 1,300 03/04/25 11:16 RECRUITMENT ASSISTANT.DBAK (ml) Colloids volume administered ( 100 03/04/25 11:16 RECRUITMENT ASSISTANT.DBAK ml) Blood Product volume administered (ml) Total IV fluid infused 1,400 03/04/25 11:16 RECRUITMENT ASSISTANT.DBAK Anesthesia Postop Eval I: Summary Notes Anesthesia Complication No 03/04/25 11:16 RECRUITMENT ASSISTANT.DBAK Anesthesia Complication Comment: Post-operative progress note VSS see PACU notes 03/04/25 11:16 RECRUITMENT ASSISTANT.DBAK for details Anesthesia: Postop Eval II Evaluation Mental status: Awake Pain Level: 0 nausea: No Vomiting: No Complications Anesthesia Complication: No
--- NOTE | 2025-03-04 18:37 | PCM.POSTANE2 ---
Anesthesia Postop Eval I Sum Postop Eval Completion status Anesthesia document: Postop Eval 1 completed: Yes Anesthesia Postop Eval I Summary Anesthesia Postop Eval I Summary: Anesthesia Postop Eval I: Assessment Summary Airway patent Yes 03/04/25 11:16 STRATEGIC CONSULTANT.DBAK Spontaneous unlabored Yes 03/04/25 11:16 STRATEGIC CONSULTANT.DBAK respirations Mental status Awake,Calm 03/04/25 11:16 STRATEGIC CONSULTANT.DBAK nausea No 03/04/25 11:16 STRATEGIC CONSULTANT.DBAK Vomiting No 03/04/25 11:16 STRATEGIC CONSULTANT.DBAK Anesthesia Postop Eval I: Fluid Summary Crystalloid volume administer 1,300 03/04/25 11:16 STRATEGIC CONSULTANT.DBAK (ml) Colloids volume administered ( 100 03/04/25 11:16 STRATEGIC CONSULTANT.DBAK ml) Blood Product volume administered (ml) Total IV fluid infused 1,400 03/04/25 11:16 STRATEGIC CONSULTANT.DBAK Anesthesia Postop Eval I: Summary Notes Anesthesia Complication No 03/04/25 11:16 STRATEGIC CONSULTANT.DBAK Anesthesia Complication Comment: Post-operative progress note VSS see PACU notes 03/04/25 11:16 STRATEGIC CONSULTANT.DBAK for details Anesthesia: Postop Eval II Evaluation Mental status: Awake Pain Level: 0 nausea: No Vomiting: No Complications Anesthesia Complication: No
== END 2025-03-04 13:15 | disposition home or self-care (01) ==
LOC: SDC 05:19 → AC 05:20
PROVIDERS: PCP Family Medicine; Visit Provider Orthopaedic Surgery Orthopaedic Surgery of the Spine
PROC: (CPT 63655; principal; 2025-03-04 07:00)
DX: M96.1 Postlaminectomy syndrome, not elsewhere classified (principal); M06.9 Rheumatoid arthritis, unspecified; J44.9 Chronic obstructive pulmonary disease, unspecified; I48.0 Paroxysmal atrial fibrillation; E11.9 Type 2 diabetes mellitus without complications; S22.080S Wedge compression fracture of T11-T12 vertebra, sequela; M40.15 Other secondary kyphosis, thoracolumbar region; M54.50 Low back pain, unspecified; G89.29 Other chronic pain; I10 Essential (primary) hypertension; K21.9 Gastro-esophageal reflux disease without esophagitis; E78.00 Pure hypercholesterolemia, unspecified; M48.04 Spinal stenosis, thoracic region; Z79.82 Long term (current) use of aspirin; Z85.79 Personal history of other malignant neoplasms of lymphoid, hematopoietic and related tissues; Z79.84 Long term (current) use of oral hypoglycemic drugs; Z79.85 Long-term (current) use of injectable non-insulin antidiabetic drugs; Z79.51 Long term (current) use of inhaled steroids; Z79.899 Other long term (current) drug therapy; Z86.718 Personal history of other venous thrombosis and embolism; Z87.891 Personal history of nicotine dependence
CPT/HCPCS: 63655; 00620; 72020; 76000; 82962; 86850; 86900; 86901; C1713; C1778; P9047; J2405

== ENCOUNTER 2025-03-14 05:57 | Day surgery (SDC) | payer MEDICARE, SELFPAY ==
[2025-02-17 13:04] LABS: Hepatitis B Surface Antibody Nonreactive
[2025-02-17 13:07] LABS: Hemoglobin A1c 6.7 % (<=5.6)
[2025-02-17 13:38] LABS: Anion Gap 14 (5-15); BUN 22 mg/dL (4-19); BUN/Creat Ratio 18.8 RATIO (10-20); Calcium,Total 9.1 mg/dL (7.6-11.0); Carbon Dioxide 21.2 mmol/L (21.0-32.0); Chloride 102 mmol/L (98-108); Creatinine, Serum 1.17 mg/dL (0.70-1.20); EST Glomerular Filtration Rate 66 (>60); Glucose 129 mg/dL (70-99); HIV Nonreactive (Nonreactive); Hepatitis C Antibody Nonreactive (Nonreactive); Potassium 4.4 mmol/L (3.3-5.1); Sodium Level 137 mmol/L (133-145)
[2025-02-17 13:49] LABS: Magnesium 1.8 mg/dL (1.5-2.2)
[2025-02-17 14:00] LABS: Absolute Lymphocyte Count 0.96 X10^3/uL (0.83-4.51); Absolute Neutrophil Count 4.4 X10^3/uL (2.0-7.7); Basophil# 0.02 X10^3/uL; Basophil% 0.3 % (0-1); Eosinophil# 0.03 X10^3/uL; Eosinophils% 0.5 % (0-5); Hematocrit 44.3 % (40-54); Hemoglobin 14.4 g/dL (13.0-16.5); Lymphocyte # 0.96 X10^3/ul (0.83-4.51); Lymphocyte % 16.7 % (19-41); Mean Corp Hgb Conc 32.5 g/dL (32-36); Mean Corpuscular Hgb 28.2 pg (27.0-32.0); Mean Corpuscular Volume 86.7 fL (80-94); Mean Platelet Vol. 10.1 fl (6.2-12.0); Monocyte# 0.36 X10^3/uL; Monocyte% 6.3 % (0-10); NRBC Flagged by Analyzer 0 % (0-5); Neutrophil # 4.35 X10^3/uL (2.7-7.7); Neutrophil % 75.9 % (47-70); Platelet Count 168 K/mm3 (150-450); RBC Distribution Width CV 15.5 % (11.6-14.6); RBC Distribution Width SD 48.8 fl (35.1-43.9); Red Blood Count 5.11 M/mm3 (4.6-6.2); White Blood Count 5.7 K/mm3 (4.4-11.0)
[2025-02-19 05:07] LABS: Hepatitis A AB, Total Negative (Negative)
--- NOTE | 2025-03-05 20:33 | PAT.ANE_ITS ---
Pre-Assessment Diagnosis/Proposed Procedure Planned Operative Procedure(s): Spinal cord stimulator pulse generator implantation Anesthesia History Anesthesia History - dispatcher relay: Anesthesia History - dispatcher relay Hx Hospitalization Yes: INFECTION IN [place]/ 02/05/25 09:39 WRIST Any Problems With Anesthesia No 02/05/25 09:39 Cholinesterase deficiency No 02/05/25 09:39 You/Your Family Experience No 02/05/25 09:39 fever (hyperthermia) with Relationship Recent Exposure to Contagious Disease Does patient have nerve No 02/05/25 09:39 stimulator Patient instructed to have device shut off --Does patient have Pacemaker or ICD? When Was Last Pacemaker Check QUESTION #4 FULL TEXT: You/Your Family Experience fever (hyperthermia) with Anesthesia Last Oral Intake Last Oral intake: Last Oral Intake NPO since Meds taken in AM with sips of water? Meds patient instructed to take am of surgery PONV PONV - dispatcher relay: PONV - dispatcher relay Female No 02/05/25 09:39 HX of Motion Sickness No 02/05/25 09:39 HX of N/V After Surgery No 02/05/25 09:39 Non-Smoker Yes 02/05/25 09:39 Duration of Surgery greater No 02/05/25 09:39 than 60 minutes Number of Risk Factors 1 02/05/25 09:39 PONV Score Low Risk 02/05/25 09:39 Height & Weight Height & Weight: Anesthesia: Height & Weight Height 5 ft 9 in 12/05/24 10:30 Respiratory Assessment Respiratory Assessment - dispatcher relay: Respiratory Tract Infection Hx - dispatcher relay Hx Respiratory Tract Infection No 02/05/25 09:39 STOP Sleep Apnea STOP Sleep Apnea - dispatcher relay: STOP Sleep Apnea - dispatcher relay Hx Hypertension Yes: CONTROLLED ON MED 02/05/25 09:39 Hx Sleep Apnea No 02/05/25 09:39 CPAP BIPAP Do you snore loudly (louder No 02/05/25 09:39 than talking or can be heard Do you often feel tired/ No 02/05/25 09:39 fatigued/ sleepy during daytime? Has anyone observed you stop No 02/05/25 09:39 breathing during sleep? STOP Results Negative 02/05/25 09:39 QUESTION #5 FULL TEXT : Do you snore loudly (louder than talking or can be heard through closed doors)? 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 Specify any problems Hx of Preganancy in last 3 N/A 02/05/25 09:39 Months Nurse Filling Out Transfusion VCHRISTIN 02/05/25 09:39 & Questions: Date: 02/05/25 02/05/25 09:39 Time: 09:39 02/05/25 09:39 Patient unable to answer at this time (ie. confused, unrespo /Reproduction History /Reproductive History - dispatcher relay: /Reproductive Hx- dispatcher relay Hx Now Gestational Age (in weeks): EDC: Hx Hx Para Hx Section SAB No 02/05/25 09:39 [facility] Medical History Pre-op testing Wears hearing aid Wears glasses Cancer Multiple myeloma History of steroid therapy Ambulates with cane High cholesterol Back pain Injury of back Injury of head and neck Gastric reflux Former smoker History of edema History of stress test History of echocardiogram History of Holter monitoring Cardiology follow-up encounter Joint infection of right wrist DVT of lower extremity, bilateral Abnormal ECG Paroxysmal atrial fibrillation Essential hypertension History of multiple myeloma GERD (gastroesophageal reflux disease) Rheumatoid arthritis Osteoarthritis Diabetes mellitus COPD (chronic obstructive pulmonary disease) Hyperlipidemia Debility Thoracic spinal stenosis Bone tumor Home Medications ?Medication ?Instructions ?Recorded ?Last Taken ?Type aspirin 81 mg tablet,delayed 81 mg PO DAILY Heart 12/1803/03/25 08:30 History release calcium carb-ergocalciferol (vit 200 tab PO DAILY Supp lment 01/05/23 03/03/25 08:30 History D2) 600 mg calcium-200 unit tablet cholecalciferol (vitamin D3) 50 50 mcg PO DAILY Supple ment 01/05/23 Unknown History mcg (2,000 unit) tablet cyanocobalamin (vitamin B-12) 1,000 mcg PO DAILY Suppl ement 01/05/23 03/03/25 08:30 History 1,000 mcg capsule losartan 25 mg tablet 12.5 mg PO DAILY BP 01/05/23 03/03/25 08:30 History metformin 1,000 mg tablet 1,000 mg PO BID DM 01/05/23 03/03/25 19:30 History multivitamin 1 tab PO DAILY Supplement 03/03/25 08:30 History omeprazole 40 mg capsule,delayed 40 mg PO DAILY GERD 0 01/05/23 03/03/25 08:30 History release dapagliflozin propanediol 10 mg 10 mg PO DAILY 3 03/03/25 08:30 History tablet (Farxiga) fluticasone fur. 100 mcg-umeclid 1 inh inhalation SUSHIL Y 05/02/23 03/03/25 08:30 History 62.5 mcg-vilant 25 mcg inhalat.powder (Trelegy Ellipta) torsemide 20 mg tablet 20 mg PO DAILY 08/17/2302/16 08:30 History atorvastatin 40 mg tablet 40 mg PO QDAY 03/06/2403/03 08:30 History magnesium oxide 250 mg PO BID 08/08/2403/03 19:30 History carvedilol 12.5 mg tablet 12.5 mg PO BID #180 tabs 01/1003/03/25 19:30 Rx dulaglutide 3 mg/0.5 mL 3 mg subcut QWEEK 02/04/25 0 02/24/25 History subcutaneous pen injector (Trulicity) cephalexin 500 mg capsule 500 mg PO BID #6 caps Unknown Rx hydrocodone-acetaminophen 5-325mg 1 tab PO Q6H PRN kip n 5 days #20 03/04/25 Unknown Rx 5mg-325mg tabs meloxicam 15 mg tablet 15 mg PO DAILY #30 tabs 02/16 04/11 Unknown Rx methocarbamol 500 mg tablet 500 - 750 mg (1 - 1.5 x 50 0 mg) PO 03/04/25 Unknown Rx TID PRN pain/spasms #30 tabs sennosides 8.6 mg capsule (senna) 8.6 mg PO BID PRN co nstipation #30 03/04/25 Unknown Rx caps Allergy/AdvReac Type Severity Reaction Status Date / Time No Known Allergies Allergy Verified 03/04/25 06:09 Family History Father Cancer, Onset Age: 52 Pancreatic cancer. Diabetes Sister Diabetes Grandmother Diabetes Surgical History Hx of bilateral cataract extraction Hx of eye surgery History of total left knee replacement (TKR) (~08/2023) History of tonsillectomy History of laminectomy History of carpal tunnel surgery of right wrist History of esophagogastroduodenoscopy History of colonoscopy History of bone marrow transplant History of total right knee replacement (TKR) History of reverse total replacement of right shoulder joint History of lumbar fusion Hx of fusion of cervical spine Social History household members: spouse Smoking Status: Former smoker quit date: 09/18/12 alcohol intake: current alcohol intake frequency: a few times a month substance use type: does not use caffeine: Yes Type: coffee Number of servings: 3 Audit: Pertinent Findings Pertinent Findings EKG Perinent findings: March 06, 2024. Sinus rhythm. Stress test pertinent findings: February 26, 2025. No ischemic changes on stress test. Occasional PVC. EF is 76%. Echo (EF%) pertinent findings: May 29, 2023. Mild LVH. EF is 70%. No aortic stenosis. Consult pertinent findings: February 17, 2025. Preoperative cardiovascular exam. Check stress test. If no significant abnormalities, patient may proceed with surgery. (See above) Additional pertinent findings: 48-hour Holter. August 21, 2024. Average heart rate was 72 bpm and normal sinus rhythm. PVC burden was 3.8%. PACs were 0.8%. No atrial fibrillation. No symptoms recorded in 48-hour diary. Recommendation Anesthesia Recommendation Anesthesia recommendation: OPTIMIZED for anesthesia
[2025-03-14] VITALS (10 sets, daily range): BP systolic 85–121; BP diastolic 51–77; PULSE 38–45; RESP 12–20; TEMP 36.1–36.6; O2SAT 94–100
--- OUTSIDE RECORDS SUMMARY | 2025-03-14 06:04 | XMS RPT_ITS | CCD ---
Author Organization [facility] Inform ion Partnership [facility] Care Team Providers Care Front Office Specialist Name Role Phone Heladio JOHNSON MD, Becky [...] Nargis Goddard Unavailable Ela Alvarez MD Unavailable [facility] TONGUE LINING STITCHER.BACK TENDER PAPER MACHINE, Rebecca Unavailable Moy PALMER, Leslye Unavailable Ismael JOHNSON, Dr. Nolan Primary Care Provider Ismael JOHNSON, Dr. Nolan Referring Provider Jason JOHNSON, Dr. Solis Attending Provider Zandra JOHNSON, Dr. Cardenas Attending Provider Tye JOHNSON, Dr. Garner Attending Provider Knrohan TONGUE LINING STITCHER.BACK TENDER PAPER MACHINE, Rebecca Unavailable Moy PALMER, Leslye Unavailable Tye JOHNSON, Dr. Garner Referring Provider Jason JOHNSON, Dr. Solis Other Provider ISMAEL, OVIDIO A Primary Care Unavailable DUYENAMMURRAY MAGAÑA Referring Unavailable ISMAEL, OVIDIO A Primary Care [...] LESLYE WINTER Referring Unavailable ISMAEL, OVIDIO A Primary Care [...] A Referring Unavailable ESVIN MARCUS Attending Unavailable ISMAEL, OVIDIO A Primary Care Unavailable TESTRAESVIN FLANNERY Referring Unavailable Tye, Ptasy Referring Unavailable Tye, Patsy Attending Unavailable Ismael, Ovidio Primary Care Unavailable Caio Gomez Attending Unavailable Ismael, Ovidio Primary Care Unavailable Caio Gomez Consulting Unavailable Caio Gomez Attending Unavailable Ismael, Ovidio Primary Care Unavailable Caio Gomez Attending Unavailable Ismael, Ovidio Primary Care Unavailable Ismael, Ovidio Referring Unavailable Caio Gomez Attending Unavailable Ismael, Ovidio Referring Unavailable Ismael, Ovidio Primary Care Unavailable Ismael, Ovidio Primary Care Unavailable Ronald De Paz Attending Unavailable Tye, Patsy Attending Unavailable Ismael, Ovidio Referring Unavailable Ismael, Ovidio Primary Care Unavailable Caio Gomez Attending Unavailable Ismael, Ovidio Primary Care Unavailable Ismael, Ovidio Referring Unavailable Tye, Patsy Attending Unavailable Ismael, Ovidio Primary Care Unavailable Ismael, Ovidio Referring Unavailable Tye, Patsy Referring Unavailable Tye, Patsy Attending Unavailable Ismael, Ovidio Primary Care Unavailable Caio Gomez Attending Unavailable Ismael, Ovidio Primary Care Unavailable Tye, Patsy Attending Unavailable Tye, Patsy Referring Unavailable Ismael, Ovidio Primary Care Unavailable Tye, Patsy Attending Unavailable Ismael, Ovidio Primary Care Unavailable Gomez, Caio Referring Unavailable Caio Gomez Attending Unavailable Ismael, Ovidio Primary Care Unavailable Tye, Patsy Attending Unavailable Tye, Patsy Referring Unavailable Ismael, Ovidio Primary Care Unavailable Corrigall, Roopa Attending Unavailable Ismael, Ovidio Primary Care Unavailable Corrigall, Roopa Referring Unavailable Gomez, Caio Attending Unavailable Gomez, Caio Referring Unavailable Ismael, Ovidio Primary Care Unavailable Allergies Allergy Classification Reported Allergen(s) Allergy Type Date of Onset Reaction(s) Facility Anti-Epileptic Agents (1 source) gabapentin Drug Allergy 06-24-2018 Other: See Comments [facility] Work Phone: (20 sources) gabapentin; Translations: [GABAPENTIN] Drug Allergy 06-24-2018 Other: See Comments [facility] Work Phone: Medications Current Medications Medication Drug Class(es) Dates Sig (Normalized) Sig (Original) acetaminophen 325 mg / HYDROcodone bitartrate 5 mg oral tablet (20 sources) Opioid Agonist Start: 03-04-2025 take 1 tablet by mouth every six hours as needed for pain Hydrocodone-Aceta minophen 5-325 mg tablet Active 1 {tbl} PO EVERY 6 HOURS as needed for pain 04 02March 04, 2025 Start: 10-11-2017 End: 10-18-2017 Hydrocodone-Acetaminophen 1 TABLET tablet Discontinued 1 - 2 {tbl} PO EVERY 6 HOURS as needed for Pain 56 October 11, 2017 October 17, 2017 1:00am [...] 07, 2017 12:00am October 11, 2017 9:25am amoxicillin 875 mg / clavulanate 125 mg oral tablet (20 sources) Penicillin-class Antibacterial Start: 05-15-2024 End: 11-18-2024 take 1 tablet by mouth every twelve hours amoxicillin-clavulanate potassium (AUGMENTIN) 875-125 mg per tablet [...] Take 1 tablet by josephine twice daily for 7 days. aspirin 81 mg delayed release oral tablet (20 sources) Platelet Aggregation Inhibitor, Nonsteroidal Anti-inflammatory Drug Start: End: 3 take 1 tablet by mouth once daily aspirin, enteric coated (ASPIRIN, ENTERIC COATED) 81 mg EC tablet Indications: Multiple myeloma in remission (HCC) , H/O autologous stem cell transplant (HCC) Take 1 tablet by mouth once daily. 100 tablet 3 05/15/2023 Active Comment on above: Take 1 tablet by josephine once daily. take 1 tablet by josephine once daily atorvastatin 40 mg oral tablet (20 sources) HMG-CoA Reductase Inhibitor Start: 4 End: 5 take 1 tablet by mouth once daily atorvastatin (LIPITOR) 40 mg tablet Take 1 tablet by mouth once daily. 90 tablet 1 10/02/2024 Active Start: 05-11-2023 take 1 tablet by josephine once daily atorvastatin (LIPITOR) 40 mg tablet [...] on above: Take 1 capsule by mo uth once daily. Calcium Carbonate-Vitamin D2 (6 sources) Start: 01-06-20 take 1 tablet by mouth once daily Calcium Carbonate-Vitamin D2 Active 200 TABLET PO DAILY January 04, 2023 11:00pm Start: 01-05-2023 take 1 tablet by josephine once daily Calcium Carbonate-Vitamin D2 Active 200 TABLET PO DAILY January 05, 2023 12:00am Calcium Carbonate-Vitamin D2 600 mg calcium- 200 unit Tablet (4 sources) Start: 01-05-2023 Calcium Carbonate-Vitamin D2 600 mg calcium- 200 unit Tablet Active 200 {tbl} PO DAILY January 05, 2023 12:00am carvedilol 12.5 mg oral tablet (20 sources) alpha-Adrene rgic Genesis, beta-Adrener gic Genesis Start: 05-27-2024 take 2 tablets by mouth twice daily at mealtime carvedilol (COREG) 6.25 mg tablet Take 2 tablets by mouth two times a day with meals. Per [facility] 05/27/2024 Active Start: 04-16-2024 End: 05-27-2024 take 0.5 tablet by mouth twice daily at mealtime carvedilol (COREG) 25 mg tablet Take 0.5 tablets by mouth two times a day with meals. Per [facility] 04/16/2024 05/27/2024 Discontinued (Adjust Sig [...] by josephine two times a day. Per [facility] cephalexin 500 mg oral capsule (3 sources) Cephalosporin Antibacterial Start: take 1 tablet by mouth twice daily Cephalexin 500 mg capsule Active 500 mg PO TWICE A DAY 6 March 04, 2025 12:00am take one tablet twice a day for 3 days Start: 04-18-2022 End: 04-23-2022 take 1 capsule by mouth four times daily cephALEXin (KEFLEX) 250 mg capsule Indications: Swelling of left hand Take 1 capsule by mouth four times daily for 5 days. 20 capsule 0 04/18/2022 04/23/2022 Active Comment on above: Take 1 capsule by mo [facility] four times daily for 5 days. cholecalciferol 0.05 mg oral capsule (20 sources) Vitamin D Start: 01-06-20 take 1 tablet by mouth [...] on above: Take 1 capsule by mo [facility] once daily. dapagliflozin 10 mg oral tablet [...] Comment on above: [facility] Take one daily in the [...] sources) GLP-1 Receptor Agonist Start: 02-05-20 Dulaglutide (Trulicity) 3 mg/0.5 mL pen injector Active 3 mg SC EVERY WEEK February 04, 2025 12:00am Start: 02-04-2025 Dulaglutide (D ulaglutide 3 Mg/0.5 Ml Subcutaneous Pen Injector) 3 [...] per week. Discard Pen After 12 Each 09/27/2023 04/08/2024 Discontinued Start: 09-27-2023 dulaglutide (T RULICITY) 3 mg/0.5 mL pen injector Indications: Type 2 diabetes mellitus without complication, without long-term current use of insulin (HCC) Inject 3 mg subcutaneously one time a week. Inject once per week. Discard Pen After 12 Each 09/27/2023 Active Comment on above: Inject 3 mg subcutan eously one time a week. Inject once per week. Discard Pen After 30 actuat fluticasone furoate 0.1 mg/actuat / umeclidinium 0.0625 mg/actuat / vilanterol 0.025 mg/actuat dry powder inhaler (20 sources) Anticholinergic, Corticosteroid, beta2-Adrenergic Agonist Start: 3 End: take 1 puff(s) by mouth once [...] 05/01/2023 05/19/2023 Discontinued Start: 01-11-2023 End: 05-02-2023 Qbrjfghaiib-Zekhbjowy-Txnvow er (Trelegy Ellipta) 100-62.5-25 mcg Blister With Device Discontinued 1 NMA INHALATION DAILY 0 January 11, 2023 12:00am May 02, 2023 9:34am Start: 01-11-2023 End: 05-02-2023 Ncvkjdizehi-Dklidrwka-Inukwd er (Trelegy Ellipta) 100-62.5-25 mcg Blister With Device Discontinued 1 EACH INHALATION DAILY 0 January 10, 2023 11:00pm May 02, 2023 8:34am Start: 01-11-2023 End: 05-02-2023 Vkmjuhrtjwi-Mbnuvyuww-Svxtss er (Trelegy Ellipta) 100-62.5-25 mcg Blister With Device Discontinued 1 EACH INHALATION DAILY 0 January 11, 2023 12:00am May 02, 2023 9:34am Start: 01-11-2023 Fluticasone-Um eclidin-Vilanter (Trelegy Ellipta) 100-62.5-25 mcg Blister With Device Active 1 EACH INHALATION DAILY 0 January 11, 2023 12:00am Start: 01-05-2023 End: 05-02-2023 Cmqttxmlunj-Ulvikvhen-Izival er 100-62.5-25 mcg Blister With Device Discontinued 1 NMA INHALATION DAILY January 05, 2023 12:00am May 02, 2023 9:32am Start: 01-05-2023 End: 05-02-2023 Sjrnajbmlni-Tjnqlqtsf-Lhgbse er Discontinued 1 INH INHALATION DAILY January 04, 2023 11:00pm May 02, 2023 8:32am Start: 01-05-2023 End: 05-02-2023 Gkjvqzxatyp-Uivlnjiqp-Dorbou er Discontinued 1 INH INHALATION DAILY January 05, 2023 12:00am May 02, 2023 9:32am Start: 01-05-2023 Fluticasone-Um eclidin-Vilanter Active 1 INH INHALATION DAILY January 05, 2023 12:00am Start: 08-08-2022 End: 05-01-2023 take 1 puff(s) by inhalation once daily ewgayyaaywk-ivwfjjxib-vrsautzf (TRELEGY ELLIPTA) 100-62.5-25 mcg inhalation powder Inhale 1 Puff as instructed once daily. 1 Each 5 08/08/2022 05/01/2023 Discontinued Comment on above: Inhale 1 Puff as ins tructed once daily. inhale 1 puff by josephine and INTO THE LUNGS once daily losartan [...] Take 1 tablet by josephine once daily. take 1 tablet by josephine once daily magnesium oxide 250 mg oral [...] on above: Take 1 capsule by mo [facility] once daily. meloxicam 15 mg oral tablet (1 source) Nonsteroidal Anti-inflammatory Drug Start: take 1 tablet by mouth once daily Meloxicam 15 mg tablet Active 15 mg PO DAILY March 04, 2025 12:00am metFORMIN hydrochloride 1000 mg oral tablet (20 sources) Biguanide Start: take 1 tablet by mouth twice daily at mealtime metFORMIN (GLUCOPHAGE) 1,000 mg tablet Take 1 tablet by mouth two times a day with meals. 180 tablet 1 12/02/2024 Active Start: 10-18-2021 End: 11-30-2024 take 1 tablet by mouth twice daily Metformin 1,000 mg tablet Active 1000 mg PO TWICE A DAY January 05, 2023 12:00am Comment on above: Take 1 tablet by josephine twice daily with meals. Take 1 tablet by josephine th two times a day with meals. methocarbamol 500 mg oral tablet (1 source) Muscle Relaxant Start: 2024 take 500-750 mg by mouth three times daily as needed for pain Methocarbamol 500 mg tablet Active 500 - 750 mg PO THREE TIMES A DAY as needed for pain/spasms March 04, 2025 11:10am methylPREDNISolone (1 source) Corticosteroid Start: 2021 End: [...] DAILY January 05, 2023 12:00am Multivitamin Tablet (4 sources) Start: 01-05-2023 Multivitamin Tablet Active 1 [...] MOUTH ONCE DAILY ON AN EMPTY STOMACH sennosides, shelter 8.6 mg oral capsule (1 source) Start: 03-04-2025 take 1 capsule by mouth twice daily as needed for constipation Sennosides (Senna) 8.6 mg capsule Active 8.6 mg PO TWICE A DAY as needed for constipation March 04, 2025 12:00am terbinafine 250 mg oral tablet (20 sources) Allylamine Antifungal Start: 10-07-2021 End: 03-06-2024 take 1 tablet by mouth once daily terbinafine HCl (LAMISIL) 250 mg tablet Indications: Discoloration and thickening of nails both feet Take 1 tablet by mouth once daily. 30 tablet 2 10/07/2021 Active Comment on above: Take 1 tablet by josephine th once daily. torsemide 20 mg oral tablet [...] twice daily. Take 1 tablet by josephine twice daily. Take with one 5 mg twice a day for total of 15 mg twice a day. Take 1 tablet by josephine once daily. Take with one 10 mg twice a day for total of 15 mg twice a day. Take 1.5 tablets by mouth twice daily. Take with one 5 mg twice a day for total of 15 mg twice a day. Take 1.5 tablets by mouth twice daily. . Take 1 tablet by josephine twice daily. . Take 1 tablet by josephine two times a day. . vitamin b12 [...] (Normalized) Sig (Original) acetaminophen 325 mg / oxyCODONE hydrochloride 5 mg oral tablet (4 sources) Opioid Agonist Start: 08-08-2024 End: 12-05-2024 Oxycodone-Acetamin ophen 5-325 mg tablet Discontinued 1 {tbl} PO THREE TIMES A DAY as needed August 08, 2024 1:00am December 05, 2024 10:45am [id number] 200 actuat albuterol 0.09 mg/actuat metered dose inhaler (20 sources) beta2-Adrenergic Agonist Start: 07-12-2023 End: 04-16-2024 take 2 [...] Start: 02-17-2023 take 1 tablet by josephine th twice daily apixaban (ELIQUIS) 5 mg tab(s) [...] Comment on above: [facility] 1 tablet by [facility] cefadroxil 500 mg oral capsule (4 sources) Cephalosporin Antibacterial Start: End: take 1 capsule by mouth twice daily cefADROxil (DURICEF) 500 mg capsule Take 1 capsule by mouth twice daily. 20 capsule 0 06/12/2023 07/12/2023 Discontinued (Course of therapy completed) Comment on above: Take 1 capsule by [facility] twice daily. celecoxib 200 mg oral capsule (20 sources) Nonsteroidal Anti-inflammatory Drug Start: End: take 1 capsule by mouth twice daily Celecoxib 200 mg capsule Discontinued 200 mg PO TWICE A DAY May 02, 2023 9:31am August 17, 2023 4:25pm Comment on above: Take 1 capsule by [facility] twice daily. docusate sodium 100 mg oral capsule (10 sources) Start: End: take 1 capsule by [...] (FLONASE) 50 mcg/actuation nasal spray Use 1 [place] in each nostril twice daily. Rinse mouth after use. 1 Each 1 06/12/2023 Active Start: 09-07-2021 End: 12-24-2022 fluticasone (FLONASE) 50 mcg /actuation nasal spray One spray each nostril before bed. 1 Each 5 09/07/2021 12/24/2022 Discontinued (Discontinued by Patient) Comment on above: One spray each nostr il before bed. Use 1 [place] in each nostril twice daily. Rinse mouth [...] 1 tablet by josephine th twice daily. gabapentin 300 mg oral capsule (10 sources) Anti-epileptic Agent Start: 2022 End: 2022 [...] (20 sources) Antirheumatic Agent Start: 3 End: take 1 tablet by mouth once daily Leflunomide 10 mg tablet Discontinued 10 mg PO DAILY May 02, 2023 9:32am August 08, 2024 2:06pm Start: 11-05-2019 End: 10-28-2022 take 1 tablet by mouth once daily leflunomide (ARAVA) 10 mg tablet Take 1 tablet by mouth once daily. Prescribed by Dr. Oliva 11/05/2019 10/28/2022 Discontinued Comment on above: Take 1 tablet by [facility] Prescribed by Dr. Oliva Magnesium [...] Magnesium Chloride (Slow-Mag) 71.5 mg tablet,delayed release (/EC) Discontinued 143 mg PO TWICE A DAY May 01, 2023 12:00am August 08, 2024 2:07pm Comment on above: Take 2 tablets by mo ut twice daily. take 2 tablets by mo ut twice a day Take 2 tablets by mo ut two times a day. Mometasone-Formoter ol (Dulera) 200-5 mcg/actuation Hfa Aerosol Inhaler (10 sources) Start: 01-05-2023 End: 05-01-2023 Mometasone-Formoterol (Dulera) [...] 05, 2023 12:00am Multivitamin With Minerals Tablet (4 sources) Start: 01-05-2023 End: 05-02-2023 Multivitamin With Minerals Tablet Discontinued 1 {tbl} PO DAILY January 05, 2023 12:00am May 02, 2023 9:33am oxyCODONE hydrochloride 5 mg oral tablet (20 sources) Opioid Agonist Start: 12-05-2024 End: 06-17-2025 take 1 tablet by mouth three times daily as needed for pain Oxycodone 5 mg tablet Discontinued 5 mg PO THREE TIMES A DAY as needed for pain December 05, 2024 12:00am March 04, 2025 11:09am Start: 05-15-2024 take 1 tablet by josephine [...] 05, 2023 12:00am January 11, 2023 8:49pm perflutren lipid microsphere s 1.3 mL in [...] (BD POSIFLUSH) spironolactone 25 mg oral tablet (10 sources) Aldosterone Antagonist Start: 01-05-2023 End: 05-02-2023 [...] induced pancytopenia; Translations: [Pancytopenia due to chemotherapy ([facility])] Onset: 2 Chronic Deficiency and other anemia [...] disease, without long-term current use of insulin ([facility])] Onset: 5 Disorders of lipid metabolism (20 [...] Chronic Hypertension with complications and secondary hypertension (9 sources) Hypertensive heart disease; Translations: [Hypertensive heart [...] Neoplasms of unspecified nature or uncertain behavior (12 sources) Neoplasm of bone; Translations: [Neoplasm of unspecified behavior of bone, soft tissue, and skin] 10-11-2017 Episodic Non-Hodgkin`s lymphoma (13 sources) History of multiple myeloma; Translations: [Personal history of other malignant neoplasms of lymphoid, hematopoietic and related tissues] 01-05-2023 Episodic Nutritional deficiencies (20 sources) Vitamin D deficiency; Translations: [Vitamin D deficiency, unspecified] Onset: 5 Chronic Occlusion or stenosis of precerebral arteries (20 sources) Bilateral stenosis of carotid arteries; Translations: [Occlusion and stenosis of bilateral carotid arteries] Onset: 4 05-29-2024 Chronic Osteoarthritis (13 sources) Osteoarthritis; Translations: [Unspecified osteoarthritis, unspecified site] 01-05-2023 Chronic Other acquired deformities (12 sources) Scoliosis of lumbar spine; Translations: [Scoliosis, unspecified] 12-06-2024 Chronic Other acquired deformities (15 sources) Acquired kyphosis; Translations: [Unspecified kyphosis, thoracolumbar [...] toe(s)] 12-21-2024 Episodic Other connective tissue disease (12 sources) History of lumbar fusion; Translations: [Arthrodesis status] 12-06-2024 Episodic Other connective tissue disease (2 sources) Arthrodesis status; Translations: [Arthrodesis status] Onset: 5 Episodic Other fractures (15 sources) Fracture of twelfth thoracic vertebra; Translations: [...] Hypomagnesemia; Translations: [Hypomagnesemia] Onset: 2 Chronic Other skin disorders (1 source) Callosity; Translations: [...] stem cell transplant (HCC)] Onset: 8 Chronic Residual codes; unclassified (1 source) H/O Spinal surgery; Translations: [Presence of other specified functional implants] 03-04-2025 Chronic Residual codes; unclassified (1 source) Presence of other specified functional implants; Translations: [Presence of other specified functional implants] Onset: 5 Chronic Retinal detachments; defects; vascular occlusion; and retinopathy (1 source) Epiretinal membrane of left eye; Translations: [Puckering of macula, left eye] 01-03-2024 Chronic Rheumatoid arthritis and related disease (20 sources) Inflammatory polyarthropathy; Translations: [Inflammatory polyarthropathy] Onset: 0 03-15-2021 Chronic Spondylosis; intervertebral disc disorders; other back problems (18 sources) Post-surgery back pain; Translations: [Postlaminectomy syndrome, not elsewhere classified] Onset: 5 12-06-2024 Chronic Unclassified (1 source) Obesity, Class I, BMI 30-34.9; Translations: [Obesity, Class I, BMI 30-34.9] Onset: 3 Unclassified (1 source) 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); Translations: [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)] Onset: 3 Unclassified (1 source) Low back pain, unspecified; Translations: [Low back pain, unspecified] Onset: 5 Past or Other Problems Problem Classification Problem [...] (20 sources) Patient encounter status; Translations: [Other cane weigher (current) drug therapy] Onset: 09-06-2012 Resolved: 06-13-2018 03-15-2021 Episodic Other aftercare (2 sources) Other nursing home (current) drug therapy; Translations: [Immunodeficiency due to [...] cell carcinoma of skin, unspecified] Onset: 04-21-2021 2 Episodic Other nutritional; endocrine; and metabolic disorders (20 sources) Obesity caused by energy imbalance; Translations: [Morbid (severe) obesity due to excess calories] Onset: 06-26-2017 Resolved: 11-25-2019 11-01-2023 Chronic Other screening for suspected conditions (not mental disorders or infectious disease) (13 sources) Electrocardiogram abnormal; Translations: [Abnormal electrocardiogram [ECG] [EKG]] Onset: 09-30-2022 05-02-2023 Episodic Other skin disorders (20 sources) Nail discoloration; [...] Test Name Value Interpretation Reference Range Facility Virtual Office Visiton 03-06 Virtual Office Visit [facility] [address] [place] [address] OFFICE VISIT Date of Service: MR#: [id number] Acct: [id number] Patient: RONNIE YARBROUGH Rep #: [id number] : 1950 Provider: Dr. Caio Gomez MD Age/Sex: 74/M Location: [facility] [place].[facility] Status: Signed with Addenda ADDENDUM by Dr. Caio Gomez MD on 03/11/25 at 1217 HPI Details: RONNIE YARBROUGH, is a 74 M who presents to the office today for Assessment and Plan Assessment and Plan Plan Called and spoke with the patient today again. Explained to him that insurance approval is still pending for the second stage pulse generator placement of his spinal cord stimulator. Patient is now postop day 7 status post paddle trial spinal cord stimulator placement. Patient continues to have more than 80% improvement of his chronic low back pain from the use of his trial spinal cord stimulator. He is very happy and satisfied with the improvement he gets from the stimulator. I refilled his oral antibiotic order. Explained to him that he he may be at high risk of infection due to the insurance delay, as the trial leads are hanging out through the skin. Also explained that he cannot have a shower until the second stage is completed. Patient denies any issues with the dressing. Does report itching at the fidel. Will urgently schedule the second stage once we get approval from insurance. 03/11/25 1217 Date Caio Gomez MD cc: * Signed Intake Vital Signs 03/04/25 06:14 Height 5 ft 10 in Intake Visit Reasons: Amb Documentation Chief Complaint: Pre op Allergies No Known Allergies Allergy (Verified 03/04/25 06:09) Have you fallen in the past year?: No [facility] Pre-op testing Wears hearing aid [...] Type: coffee Number of servings: 3 HPI HPI Chief Complaint: Pre op Details: Ronnie is postop day 2 status post spinal cord stimulator paddle lead trial placement. He did well from the surgery. I called and spoke to him on the phone today. He has been using the spinal cord stimulator trial as instructed by the [employer] rep. He reports more than 80% improvement of his lower back pain when he is using the spinal cord stimulator. He wishes to proceed with permanent placement of pulse generator. We will proceed with getting this approved through insurance and hopefully proceed with the surgery next week. Patient was in agreement. All questions answered. Exam Details: Details:: Exam was limited due to phone visit with no video. Coding Level of Care Code Attention Account Officer Comment Global postop 03/06/25 1000 Date Caio Gibson Signature: Date (if applicable) CC: Normal [facility] MR/PAT.[place] 03-05-2025 MR/PAT.[facility] Medical Records Department [address] [place] [address] PAT - Anesthesia 03/05/252032 MR#: [id number] Acct: [id number] Name: RONNIE YARBROUGH Rep #: [id number] : 1950 74 From: Abdon Arnett MD PCP: Dr. Ovidio Vincent MD Status:PRE SDC Y Race: C Location: [facility] [place] Pre-Assessment Diagnosis/Proposed Procedure Planned Operative Procedure(s): Spinal cord stimulator pulse generator implantation Anesthesia History Anesthesia History - veterinary pharmacologist: Anesthesia History - veterinary pharmacologist Hx Hospitalization Yes: INFECTION IN [place]/ 02/05/25 09:39 WRIST Any Problems With Anesthesia No 02/05/25 09:39 Cholinesterase deficiency No 02/05/25 09:39 You/Your Family Experience No 02/05/25 09:39 fever (hyperthermia) with Relationship Recent Exposure to Contagious Disease Does patient have nerve No 02/05/25 09:39 stimulator Patient instructed to have device shut off --Does patient have Pacemaker or ICD? When Was Last Pacemaker Check QUESTION #4 FULL TEXT: You/Your Family Experience fever (hyperthermia) with Anesthesia Last Oral Intake Last Oral intake: Last Oral Intake NPO since Meds taken in AM with sips of water? Meds patient instructed to take am of surgery PONV PONV - veterinary pharmacologist: PONV - veterinary pharmacologist Female No 02/05/25 09:39 HX of Motion Sickness No 02/05/25 09:39 HX of N/V After Surgery No 02/05/25 09:39 Non-Smoker Yes 02/05/25 09:39 Duration of Surgery greater No 02/05/25 09:39 than 60 minutes Number of Risk Factors 1 02/05/25 09:39 PONV Score Low Risk 02/05/25 09:39 Height Weight Height Weight: Anesthesia: Height Weight Height 5 ft 9 in 12/05/24 10:30 Respiratory Assessment Respiratory Assessment - veterinary pharmacologist: Respiratory Tract Infection Hx - veterinary pharmacologist Hx Respiratory Tract Infection No 02/05/25 09:39 STOP Sleep Apnea STOP Sleep Apnea - veterinary pharmacologist: STOP Sleep Apnea - veterinary pharmacologist Hx Hypertension Yes: CONTROLLED ON MED 02/05/25 09:39 Hx Sleep Apnea No 02/05/25 09:39 CPAP BIPAP Do you snore loudly (louder No 02/05/25 09:39 than talking or can be heard Do you often feel tired/ No 02/05/25 09:39 fatigued/ sleepy during daytime? Has anyone observed you stop No 02/05/25 09:39 breathing during sleep? STOP Results Negative 02/05/25 09:39 QUESTION #5 FULL TEXT : Do you snore loudly (louder than talking or can be heard through closed doors)? 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 Specify any problems Hx of Preganancy in last 3 N/A 02/05/25 09:39 Months Nurse Filling Out Transfusion VCHRISTIN 02/05/25 09:39 Questions: Date: 02/05/25 02/05/25 09:39 Time: 09:39 02/05/25 09:39 Patient unable to answer at this time (ie. confused, unrespo /Reproduction History /Reproductive History - veterinary pharmacologist: /Reproductive Hx- veterinary pharmacologist Hx Now Gestational Age (in weeks): EDC: Hx Hx Para Hx Section SAB No 02/05/25 09:39 PFSH Medical History Pre-op testing Wears hearing [...] spinal stenosis Bone tumor Home Medications ???Medication ???Instructions ???Recorded ?? (more content not included)... Normal [facility] Bedside Glucoseon 03-04-2025 FINGERSTICK GLU 103 mg/dL Normal 74-106 [facility] Comment on above: Result Comment: KELY GEMENT OF PATIENT CARE PER NURSING PROTOCOL Performed By: #### L 501.080 ####[facility] [address] [facility] [address] FINGERSTICK GLU 97 mg/dL Normal 74-106 [facility] Comment on above: Result Comment: KELY GEMENT OF PATIENT CARE PER NURSING PROTOCOL Performed By: #### L 501.080 ####[facility] [address] [place], [address] FINGERSTICK GLU 204 mg/dL High 74-106 [facility] Comment on above: Result Comment: KELY GEMENT OF PATIENT CARE PER NURSING PROTOCOL Performed By: #### L 501.080 ####[facility] [address] [place], [address] Gl[facility] at [facility] deOrdered By: Caio Gomez on 03-04-2025 Glucose [Mass/Vol] 103 mg/dL 74-106 [facility] Comment on above: MANAGEMENT OF PATIEN T CARE PER NURSING PROTOCOL Glucose [Mass/Vol] 97 mg/dL 74-106 [facility] Comment on above: MANAGEMENT OF PATIEN T CARE PER NURSING PROTOCOL MR/POSTOP.ANEon 03-04-2025 MR/POSTOP.[facility] Medical Records Department [address] [place] [address] Anesthesia Postop Eval I 03/04/25 1115 MR#: [id number] Acct: [id number] Name: RONNIE YARBROUGH Rep #: [id number] : 1950 74 From: Ammon Ponce II BIOLOGY MANAGER PCP: Dr. Ovidio Vincent MD Status:JOSSE ROBISON Y Race: C Location: [place] [address] Anesthesia: Postop Eval I Current Vital Signs Temperature: 97 F Pulse Rate: 68 Blood Pressure: 118/74 Respiratory Rate: 16 Pulse Ox: 94 Oxygen Delivery Method: Room Air Fraction of Inspired Oxygen (FIO2): 21 Assessment Airway patent: Yes Spontaneous unlabored respirations: Yes Mental status: Awake and Calm nausea: No Vomiting: No Anesthesia Complication: No Fluid Hydration Crystalloid volume administer (ml): 1,300 Colloids volume administered (ml): 100 Total IV fluid infused: 1,400 Progress Note Post-operative progress note: VSS see PACU notes for details Anesthesia document: Postop Eval 1 completed: Yes 03/04/25 111 Date Ammon Ponce II BIOLOGY MANAGER Cosigner Signature: Date CC: Signed Normal [facility] MR/[id number] 03-04-2025 [facility] Medical Records Department [address] [place] [address] Anesthesia Postop Eval II 03/04/25 1837 MR#: [id number] Acct: [id number] Name: RONNIE YARBROUGH Rep #: [id number] : 1950 74 From: Avila Do MD PCP: Dr. Ovidio Vincent MD Status:JETT ROBISON Y Race: C Location: [facility] [place] Anesthesia Postop Eval I Sum Postop Eval Completion status Anesthesia document: Postop Eval 1 completed: Yes Anesthesia Postop Eval I Summary Anesthesia Postop Eval I Summary: Anesthesia Postop Eval I: Assessment Summary Airway patent Yes 03/04/25 11:16 BIOLOGY MANAGER.DBAK Spontaneous unlabored Yes 03/04/25 11:16 BIOLOGY MANAGER.DBAK respirations Mental status Awake,Calm 03/04/25 11:16 BIOLOGY MANAGER.DBAK nausea No 03/04/25 11:16 BIOLOGY MANAGER.DBAK Vomiting No 03/04/25 11:16 BIOLOGY MANAGER.DBAK Anesthesia Postop Eval I: Fluid Summary Crystalloid volume administer 1,300 03/04/25 11:16 BIOLOGY MANAGER.DBAK (ml) Colloids volume administered ( 100 03/04/25 11:16 BIOLOGY MANAGER.DBAK ml) Blood Product volume administered (ml) Total IV fluid infused 1,400 03/04/25 11:16 BIOLOGY MANAGER.DBAK Anesthesia Postop Eval I: Summary Notes Anesthesia Complication No 03/04/25 11:16 BIOLOGY MANAGER.DBAK Anesthesia Complication Comment: Post-operative progress note VSS see PACU notes 03/04/25 11:16 BIOLOGY MANAGER.DBAK for details Anesthesia: Postop Eval II Evaluation Mental status: Awake Pain Level: 0 nausea: No Vomiting: No Complications Anesthesia Complication: No 03/04/25 1837 Date Avila Do MD Cosigner Signature: Date CC: Signed Normal [facility] Operative Reporton [address] [facility] Medical Records Department [address] [place] [address] Operative Report 03/04/25 1107 MR#: [id number] Acct: [id number] Name: RONNIE YARBROUGH Rep #: [id number] : 1950 74 From: Caio Gomez MD PCP: Dr. Ovidio Vincent MD Status:REG [facility] Location: AC03-1 Procedures Musculoskeletal 20xxx-29xxx: Other Procedure See Report Operative Report (Standard) Operative Information Date of Procedure: 03/04/25 Pre-Operative Diagnosis: Chronic low back pain, prior L2-S1 fusion, T11-12 laminectomy Post-Operative Diagnosis: Same Surgery/Procedure Performed: Spinal cord stimulator paddle lead trial, T9-10 and T8-9 laminotomies punch molder: Yes Dry Sand Molder: Belinda Snow Tasks completed by first officer: Closing, Removing tissue, Hemostasis: Electrocautery and Retracting Type of Anesthesia: General RN Documented Start/Stop Times: Operation Date: 03/04/25 07:30 Case Time Into Pre-Op 03/04/25 05:34 Out of Pre-Op 03/04/25 07:27 Anesthesia Start 03/04/25 07:30 Into Room 03/04/25 07:30 Procedure Start 03/04/25 08:11 Procedure End 03/04/25 10:52 Anesthesia End 03/04/25 11:05 Out of Room 03/04/25 11:05 Procedure Start Time: 08:11 Procedure Stop Time: 10:52 Select all DRAINS/GRAFTS/IMPLANTS that apply: Implanted device Implanted device details: Medtronic spinal cord stimulator paddle lead Estimated Blood Loss: 30 cc Specimen collected: No Description of surgery: Preoperative diagnosis: Chronic back pain, prior L2-S1 fusion, prior T11-12 laminectomy Postoperative diagnosis: Same Name of procedure: T9-10, T8-9 laminotomies, spinal cord stimulator paddle lead placement at T8 for trial, CPT 37583, modifier 22 Anesthesia: Gen. endotracheal Estimated blood loss: 30 mL Complications: None Instrumentation used: Medtronic SCS paddle lead. Indications: The patient is a pleasant 74 who presented to us with symptoms of chronic low back pain with prior L2-S1 fusion and prior T11-12 laminectomy. He had an attempted percutaneous spinal cord stimulator trial by pain management which had severe difficulty passing through the scar tissue of the previous surgeries. Patient was referred by pain management for placement of a paddle lead through an open exposure. Since patient had not had a successful trial, he was recommended a paddle trial, which if successful will be followed by staged pulse generator placement. Patient requested surgical placement of permanent lead of the spinal cord stimulator. All risks and benefits of the procedure were explained to the patient. The risks include but are not limited to infection, bleeding, injury to nerves and vessels, need for further procedures, worsening lumbar pathology with potential neurologic symptoms, persistent pain, technical issues with spinal cord stimulator, hematoma, migration of lead, skin impingement from subcutaneous pulse generator, worsening deformity, DVT, pulmonary embolism, cardiopulmonary event etc. patient understands all the risks and benefits and agrees to the procedure. Procedure: The patient was identified in the preoperative suite using unique patient identifiers. Skin was marked consent was taken and all questions were answered. The patient was then brought back to the operative room and a timeout was performed. General endotracheal anesthesia was given. Intraoperative neuro monitoring leads were applied. The patient was carefully positioned prone on a standard OR table with a Krzysztof frame. Back was prepped and draped in usual fashion. X-rays were performed to identify level of incision. A posterior midline incision was carried out. Bovie was utilized to go down to the spinous processes. Subperiosteal dissection over the lamina was performed. A Heather clamp was then placed on the left presumed T10 transverse process T9 spinous process, and C-arm AP view was taken. This confirmed the level by counting up from last rib. Previous instrumentation starting at L2 was also utilized for counting levels. T9-10 interspinous ligament was removed with the help of rongeur. Bur was utilized to thin down inferior T9 lamina to perform a laminotomy on the left but also extending across the midline towards the right. Upgoing curettes were utilized to carefully remove ligamentum flavum piecemeal to adequately expose posterior epidural space. The trial passer instrument was passed and confirmed on C-arm to reach the top of T8 vertebra on AP view. This however was found to be slightly towards the left due to the patient's scoliosis. Multiple attempts were made but the Medtronic paddle lead slightly towards the left. Decision was then made to perform a T8-9 laminotomy to direction the superior portion of the paddle better. T8-9 laminotomy was performed from the left and extended towards the midline and beyond to the right. (more content not included)... Normal [facility] Spine 1 View Any Levelon Spine 1 View Any Level [facility] Imaging Services [address] [place], [place] [address] Spine 1 View Any Level MR#: [id number] Acct: [id number] Name: RONNIE YARBROUGH Rep #: [id number] : 1950 M 74 From: Bindu scott MD PCP: Dr. Ovidio Vincent MD Status: [facility] Study: Spine 1 View Any Level Date of Exam: 03/04/25 Exam# [id number] Ordering Dr: Caio Gomez MD PROCEDURE: SPINE 1 VIEW ANY LEVEL 03/04/2025 REASON FOR EXAM: OPEN THORACIC LAMINECTOMY, SPINAL CORD STIM PLACEMENT TECHNIQUE: SPINE 1 VIEW ANY LEVEL Fluoroscopy time 17.1 seconds. Radiation dose 6.54 mGy. 2 spot images are provided. COMPARISON: 12/05/2024. FINDINGS: Chronic compression fracture of T12. Spinal stimulator is noted. RAD/Spine 1 View Any Level IMPRESSION: Intraoperative fluoroscopic images. Reading [facility] CC: Dr. Caio Gomez MD; Dr. Ovidio Vincent MD Cable Ferryboat Operator: Signed Normal [facility] Type AND Screenon 03-04-2025 Ab SCREEN GEL Negative Normal [facility] Comment on above: Order Comment: S Performed By: #### B TS ####[facility] [address] [facility] [place], [address] Cardiovascular stress test r eportOrdered By: Patsy Gamble on 02-26-2025 Study report [facility] Cardiovascular Services [address] [place] [address] MR#: [id number] Acct: [id number] Name: RONNIE YARBROUGH Rep #: [id number] : 1950 74 From: Patsy Gamble MD Primary Care: Dr. Ovidio Vincent MD Stat us: REG CLI Referring Dr: Patsy Gamble MD [...] is end systolic thickening and brightening. The gatedCardiolite study demonstrates myocardial thickening and inward wall motion. Thereported LVEF is 76%. Impression: 1. Pharmacologic (Regadenoson) evaluation 2. Peak pharmacologic ECG with no diagnostic ischemic changes. 3. Occasional PVC noted pretest. 5. Rest and stress SPECT Cardiolite nuclear imaging demonstrate relative uniform tracer uptake and myocardial perfusion appearing within normal limits. 6. The gated Cardiolite study reports an LVEF of 76%. This note was generated with [employer] dictation software. It may contain incorrectwords, spelling, and punctuation that were not noted in checking the note beforesigning. 02/26/25 1050 Date _ Patsy Gamble MD CC: Dr. Patsy Gamble MD; Dr. Ovidio Vincent MD ~ Date Dictated: 02/26/258 Date Transcribed: 02/26/251047 Cable Ferryboat Operator: JELANI Frazier [facility] Work Phone: Echo Completeon 02-26-2025 Echo [facility] Cardiovascular Services [address] [place] [address] Echo Complete 02/26/25 0733 MR#: [id number] Acct: [id number] Name: RONNIE YARBROUGH Rep #: [id number] : 1950 74 From: Patsy Gamble MD Attending Dr: Dr. Patsy Gamble MD Status: REG CLI Ordering Dr: Patsy Gamble MD Date: 02/26/25 Location: [facility] Sex: M C Admitted: Reason For Study [...] Physician: Ovidio Vincent Performed By: Ellyn Zuniga RD 02/26/25954 Date Patsy Gamble MD CC: Dr. Patsy Gamble MD; Dr. Ovidio Vincent MD Date Dictated: 02/26/25732 Date Transcribed: 02/26/25954 Cable Ferryboat Operator: Signed Normal [facility] Echocardiogram study reportO rdered By: Patsy Gamble on 02-26-2025 Study report [facility] Cardiovascular Services [address] [place] [address] Echo Complete 02/26/25732 MR#: [id number] Acct: [id number] Name: RONNIE YARBROUGH Rep #:[id number] : 1950 74 From: Patsy Gamble MD Attending Dr: Dr. Patsy Gamble MD Status: REG CLI Ordering Dr: Patsy Gamble MD Date: Location: [facility] Sex: M C Admitted: Reason For Study [...] visualized. Pericardium/Pleural No pericardial effusion. MMode/2D Measurements & Calculations LVIDd: 3.9 cm IVSd: 1.2 cm [...] MV dec time: 0.39 sec Doppler Measurements & Calculations MV E max mickey: 51.7 cm/sec [...] Ovidio Vincent Performed By: Ellyn Zuniga RDCS 02/26/25 0955 Date _ Patsy Gamble MD CC: Dr. Patsy Gamble MD; Dr. Ovidio Vincent MD ~ Date Dictated: 02/26/25732 Date Transcribed: 02/26/25954 Cable Ferryboat Operator: Freddie [facility] Work Phone: MR/PATKarina 02-26-2025 MR/PAT.GIRMA [facility] Medical Records Department [address] [place] [address] PAT - Anesthesia 02/26/25 1157 MR#: [id number] Acct: [id number] Name: RONNIE YARBROUGH Rep #: [id number] : 1950 74 From: Angel Dong MD PCP: Dr. Ovidio Vincent MD Status:PRE [facility] Y Race: C Location: [facility] [place] Pre-Assessment Diagnosis/Proposed Procedure Planned Operative Procedure(s): Open thoracic laminectomy, spinal cord stimulator placement Anesthesia History Anesthesia History - veterinary pharmacologist: Anesthesia History - veterinary pharmacologist Hx Hospitalization Yes: INFECTION IN [place]/ 02/04/25 [...] take am of surgery PONV PONV - veterinary pharmacologist: PONV - veterinary pharmacologist Female No 02/04/25 09:31 HX of Motion [...] 12/05/24 10:30 Respiratory Assessment Respiratory Assessment - veterinary pharmacologist: Respiratory Tract Infection Hx - veterinary pharmacologist Hx Respiratory Tract Infection No 02/04/25 09:31 STOP Sleep Apnea STOP Sleep Apnea - veterinary pharmacologist: STOP Sleep Apnea - veterinary pharmacologist Hx Hypertension Yes: CONTROLLED ON MED 02/04/25 [...] 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 Use History - veterinary pharmacologist: Tobacco Use History - veterinary pharmacologist Tobacco Use Smoking Status Former smoker 02/04/25 09:31 Hx Tobacco Use No 02/04/25 09:31 Years Smoking Packs Smoked per Day Smoking Cessation Date was Yes - quit smoking within 15 02/04/25 09:31 within the last 15 years years Hx Smoking Cessation Date Hx Smoking Cessation Counseling Hematologic Medial History Hematologic Hx - veterinary pharmacologist: 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 Medical History Pre-op testing Wears hearing [...] ???Medication ??? (more content not included)... Normal [facility] Stress Reporton 02-26-[address] [facility] Cardiovascular Services [address] [place] [address] MR#: [id number] Acct: [id number] Name: RONNIE YARBROUGH Rep #: [id number] : 1950 74 From: Patsy Gamble MD Primary Care: Dr. Ovidio Vincent MD Status: REG I Referring Dr: Patsy Gamble MD Sex: M [...] of 76%. This note was generated with [employer] dictation software. It may contain incorrect words, spelling, and punctuation that were not noted in checking the note before signing. 02/26/25 1050 Date Patsy Gamble MD CC: Dr. Patsy Gamble MD; Dr. Ovidio Vincent MD Date Dictated: 02/26/25 104 Date Transcribed: 02/26/251047 Cable Ferryboat Operator: JELANI Signed Normal [facility] Orthopedic Visit Reporton Orthopedic Visit Report [facility] [address] [place] [address] OFFICE VISIT Date of Service: 02/21/25 MR#: [id number] Acct: [id number] Name: RONNIE YARBROUGH Rep #: [id number] : 1950 Provider: Dr. Caio Gomez MD [...] by me, Dr. Caio Gomez MD 02/21/25 3732. Part of today???s visit was documented by Bella Daniel MA, acting as scribe. RONNIE YARBROUGH is a 74 year old M here today for pre op visit. Patient would like to discuss the surgery. He denies any recent injections or physical therapy. Patient does have a history of diabet (more content not included)... Normal [facility] Hepatitis A AB, Totalon 06-0 HEPATITIS A,TOT Negative Normal Negative [facility] Comment on above: Result Comment: Comm ent: The HAV total antibody assay detects both IgG and IgM but does not differentiate between them. A negative result suggests susceptibility to infection. A positive result could be due to vaccination, previously resolved infection or active infection. Testing for HAV IgM should be performed if active HAV infection is suspected. [facility] offers profiles that will automatically reflex positive HAV total antibody results to IgM (e.g., panel #[id number] HAV Antibody w/ Rfx). Performed at: [address] [id number] Computer Operations Technician: Zackary Mendoza PhD, Phone: [phone] Performed By: #### L 3890.6301, M100.651, L3100.0300, L3890.6202, L501.9985, L100.0100, L3890.6006, L500.2500 ####[facility] [address] [place], [place], [id number] MRSA/SAID NASAL SCREENon MRSA+SAID SCRN Reason for Exam: Adenike d[place] MRSA MRSA Negative S. AUREUS S. aureus Negative Normal [facility] Comment on above: Performed By: #### L 3890.6301, M100.651, L3100.0300, L3890.6202, L501.9985, L100.0100, L3890.6006, L500.2500 ####[facility] [address] [place], [place], [id number] Basic Metabolic Profile (BMP )on 02-17-2025 BUN/CRE 18.8 RATIO Normal 10-20 [facility] Comment on above: Performed By: #### L 3890.6301, M100.651, L3100.0300, L3890.6202, L501.9985, L100.0100, L3890.6006, L500.2500 #### [facility] [address] [place], [address] Calcium [Mass/Vol] 9.1 mg/dL Normal 7.6-11.0 [facility] Comment on above: Performed By: #### L 3890.6301, M100.651, L3100.0300, L3890.6202, L501.9985, L100.0100, L3890.6006, L500.2500 #### [facility] [address] [place], [address] Chloride [Moles/Vol] 102 mmol/L Normal 98-108 [facility] Comment on above: Performed By: #### L 3890.6301, M100.651, L3100.0300, L3890.6202, L501.9985, L100.0100, L3890.6006, L500.2500 #### [facility] [address] [place], [address] CO2 [Moles/Vol] 21.2 mmol/L Normal 21.0-32.0 [facility] Comment on above: Performed By: #### L 3890.6301, M100.651, L3100.0300, L3890.6202, L501.9985, L100.0100, L3890.6006, L500.2500 #### [facility] [address] [place], [address] Creatinine [Mass/Vol] 1.17 mg/dL Normal 0.70-1.20 [facility] Comment on above: Performed By: #### L 3890.6301, M100.651, L3100.0300, L3890.6202, L501.9985, L100.0100, L3890.6006, L500.2500 #### [facility] [address] [place], [address] GAP 14 Normal 5-15 [facility] Comment on above: Performed By: #### L 3890.6301, M100.651, L3100.0300, L3890.6202, L501.9985, L100.0100, L3890.6006, L500.2500 #### [facility] [address] [place], [address] GFR/1.73 sq M.predicted among non-blacks MDRD (S/P/Bld) [Vol rate/Area] 66 mL/min/{1.73_m2} Normal >60 [facility] Comment on above: Result Comment: mL/m in/1.73m2 CKD-EPI Creatinine Equation (2020) Performed By: #### L 3890.6301, M100.651, L3100.0300, L3890.6202, L501.9985, L100.0100, L3890.6006, L500.2500 #### [facility] [address] [place], [address] Glucose [Mass/Vol] 129 mg/dL High 70-99 [facility] Comment on above: Performed By: #### L 3890.6301, M100.651, L3100.0300, L3890.6202, L501.9985, L100.0100, L3890.6006, L500.2500 #### [facility] [address] [place], [address] Potassium [Moles/Vol] 4.4 mmol/L Normal 3.3-5.1 [facility] Comment on above: Performed By: #### L 3890.6301, M100.651, L3100.0300, L3890.6202, L501.9985, L100.0100, L3890.6006, L500.2500 #### [facility] [address] [place], [address] Sodium [Moles/Vol] 137 mmol/L Normal 133-145 [facility] Comment on above: Performed By: #### L 3890.6301, M100.651, L3100.0300, L3890.6202, L501.9985, L100.0100, L3890.6006, L500.2500 #### [facility] [address] [place], [address] Urea nitrogen [Mass/Vol] 22 mg/dL High 4-19 [facility] Comment on above: Performed By: #### L 3890.6301, M100.651, L3100.0300, L3890.6202, L501.9985, L100.0100, L3890.6006, L500.2500 #### [facility] [address], [address] CBC W/Diff, Automatedon 06-0 2-2024 Absolute Lymph 0.96 X10 3/uL Normal 0.83-4.51 [facility] Comment on above: Performed By: #### L 3890.6301, M100.651, L3100.0300, L3890.6202, L501.9985, L100.0100, L3890.6006, L500.2500 ####[facility] [address] [place], [address] Absolute Neut 4.4 X10 3/uL Normal 2.0-7.7 [facility] Comment on above: Performed By: #### L 3890.6301, M100.651, L3100.0300, L3890.6202, L501.9985, L100.0100, L3890.6006, L500.2500 ####[facility] [address] [place], [address] Basophils/100 WBC (Bld) 0.3 % Normal 0-1 [facility] Comment on above: Performed By: #### L 3890.6301, M100.651, L3100.0300, L3890.6202, L501.9985, L100.0100, L3890.6006, L500.2500 ####[facility] [address] [place], [address] Eosinophils/100 WBC (Bld) 0.5 % Normal 0-5 [facility] Comment on above: Performed By: #### L 3890.6301, M100.651, L3100.0300, L3890.6202, L501.9985, L100.0100, L3890.6006, L500.2500 ####[facility] [address] [place], [address] Erythrocyte distribution width (RBC) [Ratio] 15.5 % High 11.6-14.6 [facility] Comment on above: Performed By: #### L 3890.6301, M100.651, L3100.0300, L3890.6202, L501.9985, L100.0100, L3890.6006, L500.2500 ####[facility] [address] [place], [address] Hematocrit (Bld) [Volume fraction] 44.3 % Normal 40-54 [facility] Comment on above: Performed By: #### L 3890.6301, M100.651, L3100.0300, L3890.6202, L501.9985, L100.0100, L3890.6006, L500.2500 ####[facility] [address] [place], [address] Hemoglobin (Bld) [Mass/Vol] 14.4 g/dL Normal 13.0-16.5 [facility] Comment on above: Performed By: #### L 3890.6301, M100.651, L3100.0300, L3890.6202, L501.9985, L100.0100, L3890.6006, L500.2500 ####[facility] [address] [place], [address] IG% 0.300 Normal 0.0-0.9 [facility] Comment on above: Result Comment: IG% - Immature Granulocytes (promyelocytes, myelocytes and metamyelocytes) > 1% indicates that a LEFT SHIFT is Present. Performed By: #### L 3890.6301, M100.651, L3100.0300, L3890.6202, L501.9985, L100.0100, L3890.6006, L500.2500 ####[facility] [address] [place], [address] Lymphocytes/100 WBC (Bld) 16.7 % Low 19-41 [facility] Comment on above: Performed By: #### L 3890.6301, M100.651, L3100.0300, L3890.6202, L501.9985, L100.0100, L3890.6006, L500.2500 ####[facility] [address] [place], [address] MCH (RBC) [Entitic mass] 28.2 pg Normal 27.0-32.0 [facility] Comment on above: Performed By: #### L 3890.6301, M100.651, L3100.0300, L3890.6202, L501.9985, L100.0100, L3890.6006, L500.2500 ####[facility] [address] [place], [address] MCHC (RBC) [Mass/Vol] 32.5 g/dL Normal 32-36 [facility] Comment on above: Performed By: #### L 3890.6301, M100.651, L3100.0300, L3890.6202, L501.9985, L100.0100, L3890.6006, L500.2500 ####[facility] [address] [place], [address] MCV (RBC) [Entitic vol] 86.7 fL Normal 80-94 [facility] Comment on above: Performed By: #### L 3890.6301, M100.651, L3100.0300, L3890.6202, L501.9985, L100.0100, L3890.6006, L500.2500 ####[facility] [address] [place], [address] Monocytes/100 WBC (Bld) 6.3 % Normal 0-10 [facility] Comment on above: Performed By: #### L 3890.6301, M100.651, L3100.0300, L3890.6202, L501.9985, L100.0100, L3890.6006, L500.2500 ####[facility] [address] [place], [address] Neutrophils/100 WBC (Bld) 75.9 % High 47-70 [facility] Comment on above: Performed By: #### L 3890.6301, M100.651, L3100.0300, L3890.6202, L501.9985, L100.0100, L3890.6006, L500.2500 ####[facility] [address] [place], [address] Nucleated RBC (Bld) [#/Vol] 0 10*3/uL Normal 0-5 [facility] Comment on above: Performed By: #### L 3890.6301, M100.651, L3100.0300, L3890.6202, L501.9985, L100.0100, L3890.6006, L500.2500 ####[facility] [address] [place], [address] Platelet mean volume (Bld) [Entitic vol] 10.1 fL Normal 6.2-12.0 [facility] Comment on above: Performed By: #### L 3890.6301, M100.651, L3100.0300, L3890.6202, L501.9985, L100.0100, L3890.6006, L500.2500 ####[facility] [address] [place], [address] Platelets (Bld) [#/Vol] 168 10*3/uL Normal 150-450 [facility] Comment on above: Performed By: #### L 3890.6301, M100.651, L3100.0300, L3890.6202, L501.9985, L100.0100, L3890.6006, L500.2500 ####[facility] [address] [place], [address] RBC (Bld) [#/Vol] 5.11 10*6/uL Normal 4.6-6.2 [facility] Comment on above: Performed By: #### L 3890.6301, M100.651, L3100.0300, L3890.6202, L501.9985, L100.0100, L3890.6006, L500.2500 ####[facility] [address] [place], [address] RDW SD 48.8 fl High 35.1-43.9 [facility] Comment on above: Performed By: #### L 3890.6301, M100.651, L3100.0300, L3890.6202, L501.9985, L100.0100, L3890.6006, L500.2500 ####[facility] [address] [place], [address] WBC (Bld) [#/Vol] 5.7 10*3/uL Normal 4.4-11.0 [facility] Comment on above: Performed By: #### L 3890.6301, M100.651, L3100.0300, L3890.6202, L501.9985, L100.0100, L3890.6006, L500.2500 ####[facility] [address] [place], [address] Cardiology Visit Reporton Cardiology Visit Report [facility] [address] [place] [address] OFFICE VISIT Date of Service: 02/17/25 MR#: [id number] Acct: [id number] Name: RONNIE YARBROUGH Rep #: [id number] : 1950 Provider: Dr. Patsy Gamble MD Age/Sex: 74/M Location: 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 Normal [facility] HIVon 02-17-2025 HIV Non-Reactive Normal Nonreactive [facility] Comment on above: Result Comment: Non- Reactive Reactive Repeatedly reactive samples must be confirmed according to CDC recommended confirmatory algorithms. The subresults for either HIVAG or AHIV can be used as an aid in the selection of the confirmation algorithm for reactive samples. Send out specimens with Reactive results to [facility] for confirmation. Order the HIV antibody detection and differentiation: lc#[id number] Performed By: #### L 3890.6301, M100.651, L3100.0300, L3890.6202, L501.9985, L100.0100, L3890.6006, L500.2500 ####[facility] [address] [place], [address] Hemoglobin A1con 02-17-2025 HbA1c (Bld) [Mass fraction] 6.7 % High <=5.6 [facility] Comment on above: Result Comment: Norm al < 5.7 % Prediabetic 5.7 - 6.4 % Diabetic >or= 6.5 % Please note range changes. Performed By: #### L 3890.6301, M100.651, L3100.0300, L3890.6202, L501.9985, L100.0100, L3890.6006, L500.2500 #### [facility] [address] [facility] [place], [place], [address] Hepatitis B Surface Antibody on 02-17-2025 HEP B Surf Ab Non-Reactive Normal [facility] Comment on above: Result Comment: <8.5 mIU/mL: Non-Reactive 8.5<= x <11.5 mIU/mL: Indeterminate >=11.5 mIU/mL: Reactive Non Reactive: Inconsistent with immunity less than <10 mIU/mL Reactive: Consistent with immunity greater than or equal to 10 mIU/mL Performed By: #### L 3890.6301, M100.651, L3100.0300, L3890.6202, L501.9985, L100.0100, L3890.6006, L500.2500 #### [facility] [address] [place], [place], [address] Hepatitis C Antibodyon 02-17 Hepatitis C Ab Non-Reactive Normal Nonreactive [facility] Comment on above: Result Comment: Reac tive: Presumptive evidence of antibodies to HCV. Follow CDC recommendations for supplemental testing. Non-Reactive: Antibodies to HCV were not detected; does not exclude the possibility of exposure to HCV Reactive Results are presumptive evidence of antibodies to HCV. Follow CDC recommendations for supplemental testing. Order confirmation testing: HCV Quant by PCR testing - HCVPCR #[id number] Non Reactive: < 0.8 Equivocal: >/= 0.8 to < 1.0 Reactive: >/= 1.0 The CDC requires that a reactive/equivocal HCV antibody result be sent out for confirmation. HCV Quant by PCR testing. Performed By: #### L 3890.6301, M100.651, L3100.0300, L3890.6202, L501.9985, L100.0100, L3890.6006, L500.2500 ####[facility] [address] [place], [place], [address] MR/PATKarina 02-17-2025 MR/PAT.[facility] Medical Records Department [address] [place] [address] PAT - Anesthesia 02/17/25 1224 MR#: [id number] Acct: [id number] Name: RONNIE YARBROUGH Rep #: [id number] : 1950 74 From: Avila Do MD PCP: Dr. Ovidio Vincent MD Status:PRE [facility] Y Race: C Location: [facility] Pre-Assessment Diagnosis/Proposed Procedure Planned Operative Procedure(s): Open thoracic laminectomy, spinal cord stimulator placement Anesthesia History Anesthesia History - veterinary pharmacologist: Anesthesia History - veterinary pharmacologist Hx Hospitalization Yes: INFECTION IN ELBOW/ 02/04/25 [...] take am of surgery PONV PONV - veterinary pharmacologist: PONV - veterinary pharmacologist Female No 02/04/25 09:31 HX of Motion [...] 12/05/24 10:30 Respiratory Assessment Respiratory Assessment - veterinary pharmacologist: Respiratory Tract Infection Hx - veterinary pharmacologist Hx Respiratory Tract Infection No 02/04/25 09:31 STOP Sleep Apnea STOP Sleep Apnea - veterinary pharmacologist: STOP Sleep Apnea - veterinary pharmacologist Hx Hypertension Yes: CONTROLLED ON MED 02/04/25 [...] 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 Use History - veterinary pharmacologist: Tobacco Use History - veterinary pharmacologist Tobacco Use Smoking Status Former smoker 02/04/25 09:31 Hx Tobacco Use No 02/04/25 09:31 Years Smoking Packs Smoked per Day Smoking Cessation Date was Yes - quit smoking within 15 02/04/25 09:31 within the last 15 years years Hx Smoking Cessation Date Hx Smoking Cessation Counseling Hematologic Medial History Hematologic Hx - veterinary pharmacologist: 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 Normal [facility] Magnesiumon 02-17-2025 Magnesium [Mass/Vol] 1.8 mg/dL Normal 1.5-2.2 [facility] Comment on above: Performed By: #### L 501.5200 #### [facility] [address] [place], [address] Orthopedic Visit Reporton Orthopedic Visit Report [facility] [address] [place] [address] [address] [place] [address] OFFICE VISIT Date of Service: 01/02/25 MR#: [id number] Acct: [id number] Name: RONNIE YARBROUGH Rep #: [id number] : 1950 Provider: Dr. Caio Gomez MD Age/Sex: 74/M Location: [facility] Status: Signed Intake Vital Signs 12/05/24 10:30 [...] [facility] His last back surgery was about 3 years ago and he had an MRI after that surgery that showed compression and a fracture. He is unable to recall the exact dates and what surgerie (more content not included)... Normal [facility] MR Lumbar spine WO contrasto n 12-27-2024 [...] LOW BACK PAIN'; SPONDYLOSIS WITH MYELOPATHY (accession [id number]), TECHNIQUE: Routine lumbosacral and thoracic spine MR [...] content not included)... DIVISION OF RADIOLOGY Provider, [facility] - 12/27/2024 * * *Final Report* * * DATE OF EXAM: Dec 27 2024 11:20AM [facility] 0303 - MRI LUMBAR SPINE WO IVCON / PROCEDURE REASON: lumbar /thoracic wo * * * * Physician Interpretation * * * * EXAMINATION: MRI THORACIC SPINE WO IVCON, MRI LUMBAR SPINE WO IVCON CLINICAL HISTORY: MID AND LOW BACK PAIN'; SPONDYLOSIS WITH MYELOPATHY (accession [id number]), TECHNIQUE: Routine lumbosacral and thoracic spine MR [...] neural jose martin (more content not included)... [facility] MR Thoracic spine WO contras ton 12-27-2024 * * *Final Report* * * DATE OF EXAM: Dec 27 2024 11:20AM [facility] 0325 - MRI THORACIC SPINE WO IVCON / PROCEDURE REASON: lumbar /thoracic wo * * * * Physician Interpretation * * * * EXAMINATION: MRI THORACIC SPINE WO IVCON, MRI LUMBAR SPINE WO IVCON CLINICAL HISTORY: MID AND LOW BACK PAIN'; SPONDYLOSIS WITH MYELOPATHY (accession [id number]), TECHNIQUE: Routine lumbosacral and thoracic spine MR [...] content not included)... DIVISION OF RADIOLOGY Provider, [facility] - 12/27/2024 * * *Final Report* * * DATE OF EXAM: Dec 27 2024 11:20AM [facility] 0325 - MRI THORACIC SPINE WO IVCON / PROCEDURE REASON: lumbar /thoracic wo * * * * Physician Interpretation * * * * EXAMINATION: MRI THORACIC SPINE WO IVCON, MRI LUMBAR SPINE WO IVCON CLINICAL HISTORY: MID AND LOW BACK PAIN'; SPONDYLOSIS WITH MYELOPATHY (accession [id number]), TECHNIQUE: Routine lumbosacral and thoracic spine MR [...] RIGHT neural for (more content not included)... [facility] No Panel Informationon 12-27 IMPRESSION: THORACIC spine: [...] and assume there are 5 lumbar-type vertebrae. Cable Ferryboat Operator: [facility] Transcribe Date/Time: Dec 27 2024 12:03P Dictated by : ANNABELLE TAI MD This examination was interpreted and the report reviewed and electronically signed by: ANNABELLE TAI MD on Dec 27 2024 12:20PM [facility] DIVISION OF RADIOLOGY Radiology Study observation (narrative) [facility] No Panel InformationOrdered By: [facility] Provider on 12-27-2024 [facility] L/S Spine Min 4 Viewson 11-17 L/S Spine Min 4 Views [facility] [address] [place], [place] [id number] L/S Spine Min 4 Views MR#: [id number] Acct: [id number] Name: RONNIE YARBROUGH Rep #: [id number] : 1950 M 74 From: Leno Yost MD PCP: Dr. Ovidio Vincent MD Status: DEP AMB Study: L/S Spine Min 4 Views Date of Exam: 12/05/24 Exam# [id number] Ordering Dr: Caio Gomez MD PROCEDURE: L/S [...] at the L5 level extend less than long term through the AP dimension of the vertebral [...] and additional description as above. Reading Location: [facility] CC: Dr. Caio Gomez MD; Dr. Ovidio Vincent MD Cable Ferryboat Operator: Signed Normal [facility] Orthopedic Visit Reporton Orthopedic Visit Report [facility] [address] [place] [address] OFFICE VISIT Date of Service: 12/05/24 MR#: [id number] Acct: [id number] Name: COYSHANIARONNIE BRAUN Rep #: [id number] : 1950 Provider: Dr. Caio Gomez MD Age/Sex: 74/M Location: [facility] Status: Signed Intake Vital Signs 08/08/24 08:43 [...] 40 mg tablet 40 mg PO QDAY 06/19/24 03/20/25 Hi story terbinafine HCl 250 mg tablet [...] [facility]. His last back surgery was about 3 years ago and he had an MRI after that surgery that showed compression and a fracture. He is unable to recall the exact dates and what surgeries wer (more content not included)... [facility]ON[facility] YAR[facility] I ([id number]) 1950 M Date Time Provider Department 11/12/24 [...] BLOOD COUNT AND DIFFERENTIAL [SQCBCDIF] Order #: [id number] STANDING KAPPA/PHAN,FREE,SER [SQKLFRS] Order #: [id number] STANDING BASIC METABOLIC PANEL [SQBMP] Order #: [id number] STANDING PROTEIN ELECTROPHORESIS SERUM W/INTERP [SQSEPG] Order #: [id number] STANDING MONOCLONAL PROTEIN, SERUM (BLOOD) [SQSERMPA] Order #: [id number] STANDING Prescriptions as of 11/12/2024 - atorvastatin [...] mouth two times a day. . - jusapojkjsk-nfdddmikt-sgytmo er (TRELEGY ELLIPTA) 100-62.5-25 mcg inhalation powder [...] of breat (more content not included)... Normal [facility] Basic metabolic 2000 panelon 11-04-2024 Anion gap [Moles/Vol] 8 mmol/L Normal 8-15 [facility] Comment on above: Order Comment: Speci men Type: BLOOD SPECIMEN Ordering Facility: [facility] Address: [address] [place] [address] Performed By: #### L [id number] #### [facility] CLIA [id number] [address] [place] [address] [place] Calcium [Mass/Vol] 10.2 mg/dL Normal 8.5-10.2 [facility] Comment on above: Order Comment: Carlyi april Type: BLOOD SPECIMEN Ordering Facility: [facility] Address: [address] [place] [address] Performed By: #### L [id number] #### [facility] CLIA [id number] [address] [place] [address] [place] Chloride [Moles/Vol] 100 mmol/L Normal 98-107 [facility] Comment on above: Order Comment: Speci men Type: BLOOD SPECIMEN Ordering Facility: [facility] Address: [address] [place] [address] Performed By: #### L [id number] #### [facility] CLIA [id number] [address] [place] [address] [place] CO2 [Moles/Vol] 30 mmol/L Normal 22-30 [facility] Comment on above: Order Comment: Speci men Type: BLOOD SPECIMEN Ordering Facility: [facility] Address: [address] [place] [address] Performed By: #### L [id number] #### [facility] CLIA [id number] [address] [place] [address] [place] Creatinine [Mass/Vol] 0.90 mg/dL Normal 0.73-1.22 [facility] Comment on above: Order Comment: Speci men Type: BLOOD SPECIMEN Ordering Facility: [facility] Address: [address] [place] [address] Performed By: #### L [id number] #### [facility] CLIA [id number] [address] [place] [address] [place] Creatinine and Glomerular filtration rate.predicted panel (S/P/Bld) 90 mL/min/1.73m??? Normal >=60 [facility] Comment on above: Order Comment: Speci men Type: BLOOD SPECIMEN Ordering Facility: [facility] Address: [address] [place] [address] Result Comment: Aleyda mated Glomerular Filtration Rate [...] accurately reflect actual GFR. Performed By: #### L [id number] #### [facility] CLIA [id number] [address] [place] [address] [place] Glucose [Mass/Vol] 132 mg/dL High 74-99 [facility] Comment on above: Order Comment: Speci men Type: BLOOD SPECIMEN Ordering Facility: [facility] Address: [address] [place] [address] Result Comment: The [place] Diabetes Association (ADA) provides guidance for cutoff [...] Standards of Medical Care in Diabetes 2016, [place] [employer]. Diabetes Care. 2016.39(Suppl 1). Performed By: #### L [id number] #### [facility] CLIA [id number] [address] [place] [address] [place] Potassium [Moles/Vol] 4.5 mmol/L Normal 3.7-5.1 [facility] Comment on above: Order Comment: Carlyi april Type: BLOOD SPECIMEN Ordering Facility: [facility] Address: [address] [place] [address] Performed By: #### L [id number] #### [facility] CLIA [id number] [address] [place] [address] [place] Sodium [Moles/Vol] 138 mmol/L Normal 136-144 [facility] Comment on above: Order Comment: Carlyi april Type: BLOOD SPECIMEN Ordering Facility: [facility] Address: [address] [place] [address] Performed By: #### L [id number] #### [facility] CLIA [id number] [address] [place] [address] [place] Urea nitrogen [Mass/Vol] 20 mg/dL Normal 9-24 [facility] Comment on above: Order Comment: Carlyi men Type: BLOOD SPECIMEN Ordering Facility: [facility] Address: [address] [place] [address] Performed By: #### L [id number] #### [facility] CLIA [id number] [address] [place] [address] [place] CBC W Auto Differential pane l (Bld)on 11-04-2024 Basophils (Bld) [#/Vol] 10*3/uL Normal <0.11 [facility] Comment on above: Order Comment: Speci men Type: BLOOD SPECIMEN Ordering Facility: [facility] Address: [address] [place] [address] Performed By: #### 5 7021-8 #### [facility] CLIA [id number] [address] [place] [address] [place] Basophils/100 WBC (Bld) 0.2 % Normal [facility] Comment on above: Order Comment: Speci men Type: BLOOD SPECIMEN Ordering Facility: [facility] Address: [address] [place] [address] Performed By: #### 5 7021-8 #### [facility] CLIA [id number] [address] [place] [address] [place] Differential cell count method Nom (Bld) Auto Normal [facility] Comment on above: Order Comment: Speci men Type: BLOOD SPECIMEN Ordering Facility: [facility] Address: [address] [place] [address] Performed By: #### 5 7021-8 #### [facility] CLIA [id number] [address] [place] [address] [place] Eosinophils (Bld) [#/Vol] 0.03 10*3/uL Normal <0.46 [facility] Comment on above: Order Comment: Speci men Type: BLOOD SPECIMEN Ordering Facility: [facility] Address: [address] [place] [address] Performed By: #### 5 7021-8 #### [facility] CLIA [id number] [address] [place] [address] [place] Eosinophils/100 WBC (Bld) 0.5 % Normal [facility] Comment on above: Order Comment: Speci men Type: BLOOD SPECIMEN Ordering Facility: [facility] Address: [address] [place], [place] [address] Performed By: #### 5 7021-8 #### [facility] CLIA [id number] [address] [place] [address] [place] Erythrocyte distribution width (RBC) [Ratio] 16.4 % High 11.5-15.0 [facility] Comment on above: Order Comment: Speci men Type: BLOOD SPECIMEN Ordering Facility: [facility] Address: [address] [place] [address] Performed By: #### 5 7021-8 #### [facility] CLIA [id number] [address] [place] [address] [place] Hematocrit (Bld) [Volume fraction] 46.1 % Normal 39.0-51.0 [facility] Comment on above: Order Comment: Speci men Type: BLOOD SPECIMEN Ordering Facility: [facility] Address: [address] [place] [address] Performed By: #### 5 7021-8 #### [facility] CLIA [id number] [address] [place] [address] [place] Hemoglobin (Bld) [Mass/Vol] 14.8 g/dL Normal 13.0-17.0 [facility] Comment on above: Order Comment: Speci men Type: BLOOD SPECIMEN Ordering Facility: [facility] Address: [address] [place] [address] Performed By: #### 5 7021-8 #### [facility] CLIA [id number] [address] [place] [address] [place] Immature granulocytes (Bld) [#/Vol] 0.03 10*3/uL Normal <0.10 [facility] Comment on above: Order Comment: Speci men Type: BLOOD SPECIMEN Ordering Facility: [facility] Address: [address] [place] [address] Performed By: #### 5 7021-8 #### [facility] CLIA [id number] [address] [place] [address] [place] Immature granulocytes/100 WBC (Bld) 0.5 % Normal [facility] Comment on above: Order Comment: Speci men Type: BLOOD SPECIMEN Ordering Facility: [facility] Address: [address] [place] [address] Performed By: #### 5 7021-8 #### [facility] CLIA [id number] [address] [place] [address] [place] Lymphocytes (Bld) [#/Vol] 0.83 10*3/uL Low 1.00-4.00 [facility] Comment on above: Order Comment: Speci men Type: BLOOD SPECIMEN Ordering Facility: [facility] Address: [address] [place] [address] Performed By: #### 5 7021-8 #### [facility] CLIA [id number] [address] [place] [address] [place] Lymphocytes/100 WBC (Bld) 13.2 % Normal [facility] Comment on above: Order Comment: Speci men Type: BLOOD SPECIMEN Ordering Facility: [facility] Address: [address] [place] [address] Performed By: #### 5 7021-8 #### [facility] CLIA [id number] [address] [place] [address] [place] MCH (RBC) [Entitic mass] 26.6 pg Normal 26.0-34.0 [facility] Comment on above: Order Comment: Speci men Type: BLOOD SPECIMEN Ordering Facility: [facility] Address: [address] [place] [address] Performed By: #### 5 7021-8 #### [facility] CLIA [id number] [address] [place] [address] [place] MCHC (RBC) [Mass/Vol] 32.1 g/dL Normal 30.5-36.0 [facility] Comment on above: Order Comment: Speci men Type: BLOOD SPECIMEN Ordering Facility: [facility] Address: [address] [place] [address] Performed By: #### 5 7021-8 #### [facility] CLIA [id number] [address] [place] [address] [place] MCV (RBC) [Entitic vol] 82.9 fL Normal 80.0-100.0 [facility] Comment on above: Order Comment: Speci men Type: BLOOD SPECIMEN Ordering Facility: [facility] Address: [address] [place] [address] Performed By: #### 5 7021-8 #### [facility] CLIA [id number] [address] [place] [address] [place] Monocytes (Bld) [#/Vol] 0.35 10*3/uL Normal <0.87 [facility] Comment on above: Order Comment: Speci men Type: BLOOD SPECIMEN Ordering Facility: [facility] Address: [address] [place] [address] Performed By: #### 5 7021-8 #### [facility] CLIA [id number] [address] [place] [address] [place] Monocytes/100 WBC (Bld) 5.6 % Normal [facility] Comment on above: Order Comment: Speci men Type: BLOOD SPECIMEN Ordering Facility: [facility] Address: [address] [place] [address] Performed By: #### 5 7021-8 #### [facility] CLIA [id number] [address] [place] [address] [place] Neutrophils (Bld) [#/Vol] 5.03 10*3/uL Normal 1.45-7.50 [facility] Comment on above: Order Comment: Speci men Type: BLOOD SPECIMEN Ordering Facility: [facility] Address: [address] [place] [address] Performed By: #### 5 7021-8 #### [facility] CLIA [id number] [address] [place] [address] [place] Neutrophils/100 WBC (Bld) 80.0 % Normal [facility] Comment on above: Order Comment: Speci men Type: BLOOD SPECIMEN Ordering Facility: [facility] Address: [address] [place] [address] Performed By: #### 5 7021-8 #### [facility] CLIA [id number] [address] [place] [address] [place] Nucleated RBC (Bld) [#/Vol] 10*3/uL Normal <0.01 [facility] Comment on above: Order Comment: Speci men Type: BLOOD SPECIMEN Ordering Facility: [facility] Address: [address] [place] [address] Performed By: #### 5 7021-8 #### [facility] CLIA [id number] [address] [place] [address] [place] Nucleated RBC/100 WBC (Bld) [Ratio] 0.0 /[address] [facility] Comment on above: Order Comment: Speci men Type: BLOOD SPECIMEN Ordering Facility: [facility] Address: [address] [place] [address] Performed By: #### 5 7021-8 #### [facility] CLIA [id number] [address] [place] [address] [place] Platelet mean volume (Bld) [Entitic vol] 9.5 fL Normal 9.0-12.7 [facility] Comment on above: Order Comment: Speci men Type: BLOOD SPECIMEN Ordering Facility: [facility] Address: [address] [place] [address] Performed By: #### 5 7021-8 #### [facility] CLIA [id number] [address] [place] [address] [place] Platelets (Bld) [#/Vol] 175 10*3/uL Normal 150-400 [facility] Comment on above: Order Comment: Jessi chen Type: BLOOD SPECIMEN Ordering Facility: [facility] Address: [address] [place] [address] Performed By: #### 5 7021-8 #### [facility] CLIA [id number] [address] [place] [address] [place] RBC (Bld) [#/Vol] 5.56 10*6/uL Normal 4.20-6.00 [facility] Comment on above: Order Comment: Jessi chen Type: BLOOD SPECIMEN Ordering Facility: [facility] Address: [address] [place] [address] Performed By: #### 5 7021-8 #### [facility] CLIA [id number] [address] [place] [address] [place] WBC (Bld) [#/Vol] 6.28 10*3/uL Normal 3.70-11.00 [facility] Comment on above: Order Comment: Jessi chen Type: BLOOD SPECIMEN Ordering Facility: [facility] Address: [address] [place] [address] Performed By: #### 5 7021-8 #### [facility] CLIA [id number] [address] [place] [address] [place] IMMUNOFIXATION SCREEN, SERUM [...] monoclonal gammopathy. Clinical correlation is necessary. Normal [facility] Comment on above: Order Comment: Jessi chen Type: BLOOD SPECIMEN Ordering Facility: [facility] Address: [address] [place] [address] Performed By: #### I FESC #### [facility] CLIA [id number] [address] [place] [address] [place] MPA RESULT A poorly defined reg ion of restricted mobility is present that may represent an M protein. Abnormal No M protein is identified. [facility] Comment on above: Order Comment: Speci men Type: BLOOD SPECIMEN Ordering Facility: [facility] Address: [address] [place] [address] Performed By: #### I FESC #### [facility] CLIA [id number] [address] [place] [address] [place] STAFF REVIEW (MPA) Reviewed by Piedad Cardoso M.D., Ph.D Normal [facility] Comment on above: Order Comment: Speci men Type: BLOOD SPECIMEN Ordering Facility: [facility] Address: [address] [place] [address] Performed By: #### I FESC #### [facility] CLIA [id number] [address] [place] [address] [place] IMMUNOGLOBULINS,IGG,IGA,IGMo n 11-04-2024 IgA [Mass/Vol] 84 mg/dL Normal 70-400 [facility] Comment on above: Order Comment: Speci men Type: BLOOD SPECIMEN Ordering Facility: [facility] Address: [address] [place] [address] Performed By: #### I FESC #### [facility] CLIA [id number] [address] [place] [address] [place] IgG [Mass/Vol] 888 mg/dL Normal 700-1600 [facility] Comment on above: Order Comment: Speci men Type: BLOOD SPECIMEN Ordering Facility: [facility] Address: [address] [place] [address] Performed By: #### I FESC #### [facility] CLIA [id number] [address] [place] [address] [place] IgM [Mass/Vol] 71 mg/dL Normal 40-230 [facility] Comment on above: Order Comment: Speci men Type: BLOOD SPECIMEN Ordering Facility: [facility] Address: [address] [place] [address] Performed By: #### I FESC #### [facility] CLIA [id number] [address] [place] [address] [place] KAPPA/PHAN,FREE,SERon 2024 Immunoglobulin light chains.kappa.free (S) [Mass/Vol] 27.2 mg/L High 3.3-19.4 [facility] Comment on above: Order Comment: Speci men Type: BLOOD SPECIMEN Ordering Facility: [facility] Address: [address] [place] [address] Result Comment: Rare ly, increased serum free light chains levels may not be detected or accurately quantified due to prozone phenomenon or in high viscosity samples using this immunoturbidimetric assay. Correlation with other laboratory results and clinical findings is recommended. The [place] Free Light Chain was performed using the Binding Site Optilite immunoturbidimetric method. Result obtained with different assay methods or kits cannot be used interchangeably. Performed By: #### I FESC #### [facility] CLIA [id number] [address] [place] [address] [place] Immunoglobulin light chains.kappa/Immunog lobulin light chains.lambda (S) [Mass ratio] 1.32 Normal 0.26-1.65 [facility] Comment on above: Order Comment: Speci men Type: BLOOD SPECIMEN Ordering Facility: [facility] Address: [address] [place] [address] Performed By: #### I FESC #### [facility] CLIA [id number] [address] [place] [address] [place] Immunoglobulin light chains.lambda.free [Mass/Vol] 20.6 mg/L Normal 5.7-26.3 [facility] Comment on above: Order Comment: Speci men Type: BLOOD SPECIMEN Ordering Facility: [facility] Address: [address] [place], [place] [id number] Result Comment: Rare ly, increased serum free [...] be used interchangeably. Performed By: #### I [facility] #### [facility] CLIA [id number] [address] [place] [address] [place] [address] [place] PROTEIN ELECTROPHORESIS SERU M (P)on 11-04-2024 Albumin [Mass/Vol] 3.65 g/dL Normal 3.43-5.41 [facility] Comment on above: Order Comment: Speci men Type: BLOOD SPECIMEN Ordering Facility: [facility] Address: [address] [place] [address] Performed By: #### 5 7021-8 #### [facility] CLIA [id number] [address] [place] [address] [place] Alpha 1 globulin Elph [Mass/Vol] 0.32 g/dL Normal 0.18-0.43 [facility] Comment on above: Order Comment: Speci men Type: BLOOD SPECIMEN Ordering Facility: [facility] Address: [address] [place] [address] Performed By: #### 5 7021-8 #### [facility] CLIA [id number] [address] [place] [address] [place] Alpha 2 globulin Elph [Mass/Vol] 0.78 g/dL Normal 0.42-0.98 [facility] Comment on above: Order Comment: Speci men Type: BLOOD SPECIMEN Ordering Facility: [facility] Address: [address] [place] [address] Performed By: #### 5 7021-8 #### [facility] CLIA [id number] [address] [place], [place] [id number] [place] Beta globulin Elph [Mass/Vol] 0.66 g/dL Normal 0.61-1.17 [facility] Comment on above: Order Comment: Jessi chen Type: BLOOD SPECIMEN Ordering Facility: [facility] Address: [address] [place] [address] Performed By: #### 5 7021-8 #### [facility] CLIA [id number] [address] [place] [address] [place] Gamma globulin Elph [Mass/Vol] 0.70 g/dL Normal 0.53-1.51 [facility] Comment on above: Order Comment: Carlyi men Type: BLOOD SPECIMEN Ordering Facility: [facility] Address: [address] [place] [address] Performed By: #### 5 7021-8 #### [facility] CLIA [id number] [address] [place] [address] [place] INTERPRETATION COMMENT FOR PROTEIN ELECTROPHORESIS The atypical region is relatively poorly defined and may represent an unusual presentation of polyclonal immunoglobulins, but cannot rule out the presence of a low level M protein. If clinically indicated, monoclonal protein analysis and serum free light chain analysis are suggested to evaluate further for monoclonal gammopathy. Normal [facility] Comment on above: Order Comment: Jessi chen Type: BLOOD SPECIMEN Ordering Facility: [facility] Address: [address] [place] [address] Performed By: #### 5 7021-8 #### [facility] CLIA [id number] [address] [place] [address] [place] M-PROTEIN LOCATION Normal [facility] Comment on above: Order Comment: Jessi chen Type: BLOOD SPECIMEN Ordering Facility: [facility] Address: [address] [place] [address] Result Comment: Not Applicable. Performed By: #### 5 7021-8 #### [facility] CLIA [id number] [address] [place] [address] [place] Protein Fractions [Interp] An atypical region of restricted mobility is identified on protein electrophoresis. Abnormal No definitive M protein is identified on protein electrophore sis. [facility] Comment on above: Order Comment: Speci men Type: BLOOD SPECIMEN Ordering Facility: [facility] Address: [address] [place] [address] Performed By: #### 5 7021-8 #### [id number] [address] [place] [address] [place] Protein.monoclonal Elph [Mass/Vol] 0.00 g/dL Normal <=0.00 [facility] Comment on above: Order Comment: Speci men Type: BLOOD SPECIMEN Ordering Facility: [facility] Address: [address] [place] [address] Performed By: #### 5 7021-8 #### [facility] [id number] [address] [place] [address] OF [facility] SPE STAFF REVIEW Reviewed by Piedad Cardoso M.D., Ph.D Normal [facility] Comment on above: Order Comment: Speci men Type: BLOOD SPECIMEN Ordering Facility: [facility] Address: [address] [place] [address] Performed By: #### 5 7021-8 #### [facility] [id number] [address] [place] [address] [place] Prot SerPl-mCncon 11-04-2024 Protein [Mass/Vol] 6.1 g/dL Low 6.3-8.0 [facility] Comment on above: Order Comment: Speci men Type: BLOOD SPECIMEN Ordering Facility: [facility] Address: [address] [place] [address] Performed By: #### 5 7021-8 #### [facility] CLIA [id number] [address] [place] [address] [place] Cardiology Visit Reporton Cardiology Visit Report [facility] [address] [place] [address] OFFICE VISIT Date of Service: 08/08/24 MR#: [id number] Acct: [id number] Name: RONNIE YARBROUGH Rep #: [id number] : 1950 Provider: Dr. Patsy Gamble MD Age/Sex: 74/M Location: 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 Normal [facility] 08-05-2024 [facility] MAGDARONNIE I ([id number]) 1950 M Date Time Provider Department 08/05/24 [facility] During your visit today, we recorded [...] two times a day with meals. Per [facility] - atorvastatin (LIPITOR) 40 mg [...] mouth two times a day. . - jzozoeeucag-bwlsispbs-rayzhq er (TRELEGY ELLIPTA) 100-62.5-25 mcg inhalation powder [...] [Z79.899] 03/15/2021 (more content not included)... Normal [facility] Basic metabolic 2000 panelon 08-01-2024 Anion gap [Moles/Vol] 10 mmol/L Normal 8-15 [facility] Comment on above: Order Comment: Speci men Type: BLOOD SPECIMEN Ordering Facility: [facility] Address: [address] [place] [address] Performed By: #### 5 7021-8 #### [facility] [id number] [address] [place] [address] [place] Calcium [Mass/Vol] 9.6 mg/dL Normal 8.5-10.2 [facility] Comment on above: Order Comment: Speci men Type: BLOOD SPECIMEN Ordering Facility: [facility] Address: [address] [place] [address] Performed By: #### 5 7021-8 #### [facility] CLIA [id number] [address] [place] [address] [place] Chloride [Moles/Vol] 100 mmol/L Normal 98-107 [facility] Comment on above: Order Comment: Speci men Type: BLOOD SPECIMEN Ordering Facility: [facility] Address: [address] [place], [place] [address] Performed By: #### 5 7021-8 #### [facility] [id number] [address] [place] [address] [place] CO2 [Moles/Vol] 26 mmol/L Normal 22-30 [facility] Comment on above: Order Comment: Speci men Type: BLOOD SPECIMEN Ordering Facility: [facility] Address: [address] [place] [address] Performed By: #### 5 7021-8 #### [facility] CLIA [id number] [address] [place] [address] [place] Creatinine [Mass/Vol] 1.06 mg/dL Normal 0.73-1.22 [facility] Comment on above: Order Comment: Speci men Type: BLOOD SPECIMEN Ordering Facility: [facility] Address: [address] [place] [address] Performed By: #### 5 7021-8 #### [facility] [id number] [address] [place] [address] OF [facility] Creatinine and Glomerular filtration rate.predicted panel (S/P/Bld) 74 mL/min/1.73m??? Normal >=60 [facility] Comment on above: Order Comment: Speci men Type: BLOOD SPECIMEN Ordering Facility: [facility] Address: [address] [place] [address] Result Comment: Aleyda mated Glomerular Filtration Rate [...] GFR. Performed By: #### 5 7021-8 #### [facility] CLIA [id number] [address] [place], [place] [address] [place] Glucose [Mass/Vol] 121 mg/dL High 74-99 [facility] Comment on above: Order Comment: Jessi chen Type: BLOOD SPECIMEN Ordering Facility: [facility] Address: [address] [place] [address] Result Comment: The [place] Diabetes Association (ADA) provides guidance for cutoff [...] Standards of Medical Care in Diabetes 2016, [place] [employer]. Diabetes Care. 2016.39(Suppl 1). Performed By: #### 5 7021-8 #### [facility] CLIA [id number] [address] [place] [address] [place] Potassium [Moles/Vol] 4.4 mmol/L Normal 3.7-5.1 [facility] Comment on above: Order Comment: Jessi chen Type: BLOOD SPECIMEN Ordering Facility: [facility] Address: [address] [place] [address] Performed By: #### 5 7021-8 #### [facility] [id number] [address] [place] [address] [place] Sodium [Moles/Vol] 136 mmol/L Normal 136-144 [facility] Comment on above: Order Comment: Jessi chen Type: BLOOD SPECIMEN Ordering Facility: [facility] Address: [address] [place] [address] Performed By: #### 5 7021-8 #### [facility] CLIA [id number] [address] [place] [address] [place] Urea nitrogen [Mass/Vol] 31 mg/dL High 9-24 [facility] Comment on above: Order Comment: Speci men Type: BLOOD SPECIMEN Ordering Facility: [facility] Address: [address] [place] [address] Performed By: #### 5 7021-8 #### [facility] CLIA [id number] [address] [place] [address] [place] CBC W Auto Differential pane l (Bld)on 08-01-2024 Basophils (Bld) [#/Vol] 10*3/uL Normal <0.11 [facility] Comment on above: Order Comment: Speci men Type: BLOOD SPECIMEN Ordering Facility: [facility] Address: [address] [place] [address] Performed By: #### 5 7021-8 #### [facility] CLIA [id number] [address] [place] [address] [place] Basophils/100 WBC (Bld) 0.2 % Normal [facility] Comment on above: Order Comment: Speci men Type: BLOOD SPECIMEN Ordering Facility: [facility] Address: [address] [place] [address] Performed By: #### 5 7021-8 #### [facility] CLIA [id number] [address] [place] [address] [place] Differential cell count method Nom (Bld) Auto Normal [facility] Comment on above: Order Comment: Speci men Type: BLOOD SPECIMEN Ordering Facility: [facility] Address: [address] [place] [address] Performed By: #### 5 7021-8 #### [facility] [id number] [address] [place] [address] [place] Eosinophils (Bld) [#/Vol] 0.03 10*3/uL Normal <0.46 [facility] Comment on above: Order Comment: Speci men Type: BLOOD SPECIMEN Ordering Facility: [facility] Address: [address] [place] [address] [place] [address] Performed By: #### 5 7021-8 #### [facility] CLIA [id number] [address] [place] [address] [place] Eosinophils/100 WBC (Bld) 0.5 % Normal [facility] Comment on above: Order Comment: Speci men Type: BLOOD SPECIMEN Ordering Facility: [facility] Address: [address] [place] [address] Performed By: #### 5 7021-8 #### [facility] CLIA [id number] [address] [place] [address] [place] Erythrocyte distribution width (RBC) [Ratio] 16.3 % High 11.5-15.0 [facility] Comment on above: Order Comment: Speci men Type: BLOOD SPECIMEN Ordering Facility: [facility] Address: [address] [place] [address] Performed By: #### 5 7021-8 #### [facility] CLIA [id number] [address] [place] [address] [place] Hematocrit (Bld) [Volume fraction] 41.7 % Normal 39.0-51.0 [facility] Comment on above: Order Comment: Speci men Type: BLOOD SPECIMEN Ordering Facility: [facility] Address: [address] [place] [address] Performed By: #### 5 7021-8 #### [facility] CLIA [id number] [address] [place] [address] [place] Hemoglobin (Bld) [Mass/Vol] 13.1 g/dL Normal 13.0-17.0 [facility] Comment on above: Order Comment: Speci men Type: BLOOD SPECIMEN Ordering Facility: [facility] Address: [address] [place] [address] Performed By: #### 5 7021-8 #### [facility] CLIA [id number] [address] [place], [place] [address] [place] Immature granulocytes (Bld) [#/Vol] 0.04 10*3/uL Normal <0.10 [facility] Comment on above: Order Comment: Speci men Type: BLOOD SPECIMEN Ordering Facility: [facility] Address: [address] [place] [address] Performed By: #### 5 7021-8 #### [facility] CLIA [id number] [address] [place] [address] [place] Immature granulocytes/100 WBC (Bld) 0.7 % Normal [facility] Comment on above: Order Comment: Speci men Type: BLOOD SPECIMEN Ordering Facility: [facility] Address: [address] [place] [address] Performed By: #### 5 7021-8 #### [facility] CLIA [id number] [address] [place] [address] [place] Lymphocytes (Bld) [#/Vol] 0.81 10*3/uL Low 1.00-4.00 [facility] Comment on above: Order Comment: Speci men Type: BLOOD SPECIMEN Ordering Facility: [facility] Address: [address] [place] [address] Performed By: #### 5 7021-8 #### [facility] CLIA [id number] [address] [place] [address] [place] Lymphocytes/100 WBC (Bld) 14.7 % Normal [facility] Comment on above: Order Comment: Speci men Type: BLOOD SPECIMEN Ordering Facility: [facility] Address: [address] [place] [address] Performed By: #### 5 7021-8 #### [facility] CLIA [id number] [address] [place] [address] [place] MCH (RBC) [Entitic mass] 25.8 pg Low 26.0-34.0 [facility] Comment on above: Order Comment: Speci men Type: BLOOD SPECIMEN Ordering Facility: [facility] Address: [address] [place] [address] Performed By: #### 5 7021-8 #### [facility] CLIA [id number] [address] [place] [address] [place] MCHC (RBC) [Mass/Vol] 31.4 g/dL Normal 30.5-36.0 [facility] Comment on above: Order Comment: Speci men Type: BLOOD SPECIMEN Ordering Facility: [facility] Address: [address] [place] [address] Performed By: #### 5 7021-8 #### [facility] CLIA [id number] [address] [place] [address] [place] MCV (RBC) [Entitic vol] 82.1 fL Normal 80.0-100.0 [facility] Comment on above: Order Comment: Speci men Type: BLOOD SPECIMEN Ordering Facility: [facility] Address: [address] [place] [address] Performed By: #### 5 7021-8 #### [facility] CLIA [id number] [address] [place] [address] [place] Monocytes (Bld) [#/Vol] 0.34 10*3/uL Normal <0.87 [facility] Comment on above: Order Comment: Speci men Type: BLOOD SPECIMEN Ordering Facility: [facility] Address: [address] [place] [address] Performed By: #### 5 7021-8 #### [facility] CLIA [id number] [address] [place] [address] [place] Monocytes/100 WBC (Bld) 6.2 % Normal [facility] Comment on above: Order Comment: Speci men Type: BLOOD SPECIMEN Ordering Facility: [facility] Address: [address] [place] [address] Performed By: #### 5 7021-8 #### [facility] CLIA [id number] [address] [place] [address] [place] Neutrophils (Bld) [#/Vol] 4.29 10*3/uL Normal 1.45-7.50 [facility] Comment on above: Order Comment: Speci men Type: BLOOD SPECIMEN Ordering Facility: [facility] Address: [address] [place] [address] Performed By: #### 5 7021-8 #### [facility] CLIA [id number] [address] [place] [address] [place] Neutrophils/100 WBC (Bld) 77.7 % Normal [facility] Comment on above: Order Comment: Speci men Type: BLOOD SPECIMEN Ordering Facility: [facility] Address: [address] [place] [address] Performed By: #### 5 7021-8 #### [facility] CLIA [id number] [address] [place] [address] [place] Nucleated RBC (Bld) [#/Vol] 10*3/uL Normal <0.01 [facility] Comment on above: Order Comment: Speci men Type: BLOOD SPECIMEN Ordering Facility: [facility] Address: [address] [place] [address] Performed By: #### 5 7021-8 #### [facility] CLIA [id number] [address] [place] [address] [place] Nucleated RBC/100 WBC (Bld) [Ratio] 0.0 /[address] [facility] Comment on above: Order Comment: Speci men Type: BLOOD SPECIMEN Ordering Facility: [facility] Address: [address] [place] [address] Performed By: #### 5 7021-8 #### [facility] CLIA [id number] [address] [place] [address] [place] Platelet mean volume (Bld) [Entitic vol] 9.8 fL Normal 9.0-12.7 [facility] Comment on above: Order Comment: Speci men Type: BLOOD SPECIMEN Ordering Facility: [facility] Address: [address] [place] [address] Performed By: #### 5 7021-8 #### [facility] CLIA [id number] [address] [place] [address] [place] Platelets (Bld) [#/Vol] 189 10*3/uL Normal 150-400 [facility] Comment on above: Order Comment: Speci men Type: BLOOD SPECIMEN Ordering Facility: [facility] Address: [address] [place] [address] Performed By: #### 5 7021-8 #### [facility] CLIA [id number] [address] [place] [address] [place] RBC (Bld) [#/Vol] 5.08 10*6/uL Normal 4.20-6.00 [facility] Comment on above: Order Comment: Speci men Type: BLOOD SPECIMEN Ordering Facility: [facility] Address: [address] [place] [address] Performed By: #### 5 7021-8 #### [facility] CLIA [id number] [address] [place] [address] [place] WBC (Bld) [#/Vol] 5.52 10*3/uL Normal 3.70-11.00 [facility] Comment on above: Order Comment: Speci men Type: BLOOD SPECIMEN Ordering Facility: [facility] Address: [address] [place] [address] Performed By: #### 5 7021-8 #### [facility] CLIA [id number] [address] [place] [address] [place] CRP [facility] 08-01-2024 CRP [Mass/Vol] 0.8 mg/dL Normal <0.9 [facility] Comment on above: Order Comment: Speci men Type: BLOOD SPECIMEN Ordering Facility: [facility] Address: [address] [place] [address] Performed By: #### I FESC #### [facility] CLIA [id number] [address] [place] [address] [place] Ferritin SerPl-mCncon 2023 Ferritin [Mass/Vol] 31.0 ng/mL Normal 30.3-565.7 [facility] Comment on above: Order Comment: Speci men Type: BLOOD SPECIMEN Ordering Facility: [facility] Address: [address] [place] [address] Performed By: #### I FESC #### [facility] CLIA [id number] [address] [place] [address] [place] IMMUNOFIXATION SCREEN, SERUM on 08-01-2024 MPA RESULT No M protein is identified. Normal No M protein is identified. [facility] Comment on above: Order Comment: Speci men Type: BLOOD SPECIMEN Ordering Facility: [facility] Address: [address] [place] [address] Performed By: #### I FES #### [facility] CLIA [id number] [address] [place] [address] [place] STAFF REVIEW (MPA) Reviewed by Dr. Candy De La Cruz MD [facility] Comment on above: Order Comment: Speci men Type: BLOOD SPECIMEN Ordering Facility: [facility] Address: [address] [place] [address] Performed By: #### I FES #### [facility] CLIA [id number] [address] [place] [address] [place] IMMUNOGLOBULINS,IGG,IGA,IGMo n 08-01-2024 IgA [Mass/Vol] 67 mg/dL Low 70-400 [facility] Comment on above: Order Comment: Speci men Type: BLOOD SPECIMEN Ordering Facility: [facility] Address: [address] [place] [address] Performed By: #### 5 7021-8 #### [facility] CLIA [id number] [address] [place] [address] [place] IgG [Mass/Vol] 771 mg/dL Normal 700-1600 [facility] Comment on above: Order Comment: Speci men Type: BLOOD SPECIMEN Ordering Facility: [facility] Address: [address] [place] [address] Performed By: #### 5 7021-8 #### [facility] CLIA [id number] [address] [place] [address] [place] IgM [Mass/Vol] 74 mg/dL Normal 40-230 [facility] Comment on above: Order Comment: Speci men Type: BLOOD SPECIMEN Ordering Facility: [facility] Address: [address] [place] [address] Performed By: #### 5 7021-8 #### [facility] CLIA [id number] [address] [place] [address] [place] Iron and Iron binding capaci ty panelon 08-01-2024 Iron [Mass/Vol] 46 ug/dL Normal 41-186 [facility] Comment on above: Order Comment: Speci men Type: BLOOD SPECIMEN Ordering Facility: [facility] Address: [address] [place] [address] Performed By: #### I FESC #### [facility] CLIA [id number] [address] [place] [address] [place] Iron binding capacity [Mass/Vol] 255 ug/dL Normal 232-386 [facility] Comment on above: Order Comment: Speci men Type: BLOOD SPECIMEN Ordering Facility: [facility] Address: [address] [place] [address] Performed By: #### I FESC #### [facility] CLIA [id number] [address] [place] [address] [place] Iron/TIBC [Molar ratio] 18.0 % Normal 15.0-57.0 [facility] Comment on above: Order Comment: Speci men Type: BLOOD SPECIMEN Ordering Facility: [facility] Address: [address] [place] [address] Performed By: #### I [facility] #### [facility] CLIA [id number] [address] [place] [address] [place] KAPPA/PHAN,FREE,SERon 2023 Immunoglobulin light chains.kappa.free (S) [Mass/Vol] 24.3 mg/L High 3.3-19.4 [facility] Comment on above: Order Comment: Speci men Type: BLOOD SPECIMEN Ordering Facility: [facility] Address: [address] [place] [address] Result Comment: Rare ly, increased serum free light chains levels may not be detected or accurately quantified due to prozone phenomenon or in high viscosity samples using this immunoturbidimetric assay. Correlation with other laboratory results and clinical findings is recommended. The [place] Free Light Chain was performed using the Binding Site Optilite immunoturbidimetric method. Result obtained with different assay methods or kits cannot be used interchangeably. Performed By: #### L [id number] #### [facility] CLIA [id number] [address] [place] [address] [place] Immunoglobulin light chains.kappa/Immunog lobulin light chains.lambda (S) [Mass ratio] 1.37 Normal 0.26-1.65 [facility] Comment on above: Order Comment: Speci men Type: BLOOD SPECIMEN Ordering Facility: [facility] Address: [address] [place] [address] Performed By: #### L [id number] #### [facility] CLIA [id number] [address] [place] [address] [place] Immunoglobulin light chains.lambda.free [Mass/Vol] 17.7 mg/L Normal 5.7-26.3 [facility] Comment on above: Order Comment: Speci men Type: BLOOD SPECIMEN Ordering Facility: [facility] Address: [address] [place] [address] Result Comment: Rare ly, increased serum free [...] cannot be used interchangeably. Performed By: #### L [id number] #### [facility] CLIA [id number] [address] [place] [address] [place] PROTEIN ELECTROPHORESIS SERU M (P)on 08-01-2024 Albumin [Mass/Vol] 3.97 g/dL Normal 3.43-5.41 [facility] Comment on above: Order Comment: Speci men Type: BLOOD SPECIMEN Ordering Facility: [facility] Address: [address] [place] [address] Performed By: #### L [id number] #### [facility] CLIA [id number] [address] [place] [address] [place] Alpha 1 globulin Elph [Mass/Vol] 0.31 g/dL Normal 0.18-0.43 [facility] Comment on above: Order Comment: Jessi chen Type: BLOOD SPECIMEN Ordering Facility: [facility] Address: [address] [place] [address] Performed By: #### L [id number] #### [facility] CLIA [id number] [address] [place] [address] [place] Alpha 2 globulin Elph [Mass/Vol] 0.74 g/dL Normal 0.42-0.98 [facility] Comment on above: Order Comment: Speci men Type: BLOOD SPECIMEN Ordering Facility: [facility] Address: [address] [place] [address] Performed By: #### L [id number] #### [facility] CLIA [id number] [address] [place] [address] [place] Beta globulin Elph [Mass/Vol] 0.70 g/dL Normal 0.61-1.17 [facility] Comment on above: Order Comment: Speci men Type: BLOOD SPECIMEN Ordering Facility: [facility] Address: [address] [place] [address] Performed By: #### L [id number] #### [facility] CLIA [id number] [address] [place] [address] [place] Gamma globulin Elph [Mass/Vol] 0.68 g/dL Normal 0.53-1.51 [facility] Comment on above: Order Comment: Speci men Type: BLOOD SPECIMEN Ordering Facility: [facility] Address: [address] [place] [address] Performed By: #### L [id number] #### [facility] CLIA [id number] [address] [place] [address] [place] M-PROTEIN LOCATION Normal [facility] Comment on above: Order Comment: Speci men Type: BLOOD SPECIMEN Ordering Facility: [facility] Address: [address] [place] [address] Result Comment: Not Applicable. Performed By: #### L [id number] #### [facility] CLIA [id number] [address] [place] [address] [place] Protein Fractions [Interp] No definitive M protein is identified on protein electrophoresis. Normal No definitive M protein is identified on protein electrophore sis. [facility] Comment on above: Order Comment: Speci men Type: BLOOD SPECIMEN Ordering Facility: [facility] Address: [address] [place] [address] Performed By: #### L [id number] #### [facility] CLIA [id number] [address] [place] [address] [place] Protein.monoclonal Elph [Mass/Vol] 0.00 g/dL Normal <=0.00 [facility] Comment on above: Order Comment: Speci men Type: BLOOD SPECIMEN Ordering Facility: [facility] Address: [address] [place] [address] Performed By: #### L [id number] #### [facility] CLIA [id number] [address] [place] [address] [place] SPE STAFF REVIEW Reviewed by Dr. Candy De La Cruz MD [facility] Comment on above: Order Comment: Speci men Type: BLOOD SPECIMEN Ordering Facility: [facility] Address: [address] [place] [address] Performed By: #### L [id number] #### [facility] CLIA [id number] [address] [place] [address] [place] PVR ANK PRESS [facility] LABon 08-01-2024 PVR ANK PRESS [facility] Non-Invasive Vascular Laboratory [facility] Lower Extremity Arterial Physiology Study Bilateral/Complete Date [...] Normal at rest. Technologist: Rufina Swartz RVT, RDND Ordering physician: ESVIN MARCUS Interpreting physician: TAYLOR Shaikh DO Final CC Eligible Medical Image : [id number] See Link below for Image Normal [facility] Prot SerPl-mCncon 08-01-2024 Protein [Mass/Vol] 6.4 g/dL Normal 6.3-8.0 [facility] Comment on above: Order Comment: Speci men Type: BLOOD SPECIMEN Ordering Facility: [facility] Address: [address] [place] [address] Performed By: #### I [facility] #### [facility] CLIA [id number] [address] [place] [address] [place] CNOVon 07-02-2024 CNOV Office Visit (PODIWS ) MAGDARONNIE I ([id number]) 1950 M Date Time Provider Department 07/02/24 [...] of deep veins of both lower extremities ([facility]) 02/24/2023 Eliquis started 02/2023, can stop 08/2023 Advance directive discussed with patient 09/30/2022 Discussed 09/2022: up to date Allergic rhinitis 03/15/2021 At high risk for falls 12/16/2022 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 Day: +12; Engrafted Protocol(s): 3422 1C Preparative regimen: melphalan Mobilization regimen: neupogen and plerixafor Stem cell source: apheresis CD34 cell dose (x10e6/kg): 5.14 Date of transplant: 06/15/2018 Bilateral leg edema 09/30/2022 Cancer of the skin, 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 Cervical spondylosis without myelopathy Chronic renal failure, stage 3a ([facility]) 03/30/2023 COPD (chronic obstructive pulmonary disease) ([facility]) 03/15/2021 Diabetic eye exam ([facility]) 09/09/2021 Last done 09/09/[address] Juve Reza Dilated aortic root ([facility]) 06/04/2023 Seeing [facility] Discoloration and thickening of nails both feet 10/06/2021 ED (erectile dysfunction) of organic origin 07/04/2022 Enlarged LA (left atrium) 06/04/2023 Seeing [facility] Essential hypertension 06/13/2018 -On lisinopril 10mg daily ( home med) -Will d/c for now given hyperkalemia . 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[facility]) 06/13/2018 --ppx ACV and cipro Increased weakness when ambulating 12/16/2022 Inflammatory polyarthropathy ([facility]) Leg DVT (deep venous thromboembolism), acute, left ([facility]) 01/02/2018 --acute DVT gastrocnemius found 12/13/2017 --continue [...] chemotherapy can resume at discharge Multiple myeloma ([facility]) 11/28/2017 Multiple myeloma in remission ([facility]) Obesity, Class I, BMI 30-34.9 10/01/2012 Osteoarthritis of both hands Pancytopenia due to chemotherapy ([facility]) 06/25/2018 --Transfuse PRBC and platelets per protocol --GCSF Peripheral autonomic neuropathy in disorders classified elsewhere 06/07/2005 Pulmonary hypertension, unspecified ([facility]) 10/23/2019 Spinal stenosis, lumbar region, without neurogenic claudication 11/13/2006 Tobacco abuse 12/27/2011 Quit 2012 Type 2 diabetes mellitus without complication, without long-term current use of insulin ([facility]) 04/12/2018 Venous insufficiency, peripheral 01/06/2014 Vitamin D [...] tablet Ta (more content not included)... Normal [facility] RONNIE YARBROUGH I ([id number]) 1950 M Date Time Provider Department 06/26/24 [facility]E [facility] During your visit today, we recorded the following information about you: Leslye Winter PA-C 06/26/2024 8:50 AM Addendum Please find out when patient is back in [place]. The infectious disease specialist just got back to me yesterday. They do not need to see him. It looks like they already cancelled the appointment. If still taking atb, can stop. I would like to get repeat labs once they are in [place]. Thanks. SPENCER Hilario Amanda, RN 06/26/2024 9:52 AM Signed Pt called and is notified of providers results and instructions. Pt voices understanding. He states they are back in [place], and he will come in to get lab work done. Chanelle Nolan RN Allergies As of Date: 06/26/2024 (No Known Allergies) Date Reviewed: 05/30/2024 Reviewed by: Ovidio Vincent MD - Fully Assessed Reason for Visit: Patient Update [1234] Primary Visit Diagnosis:Pseudogout [M11.20] Order(s):C-REACTIVE PROTEIN [SQCRP] Order #: [id number] FUTURE Prescriptions as of 06/26/2024 - doxycycline [...] two times a day with meals. Per [facility] - atorvastatin (LIPITOR) 40 mg [...] Take one daily in the morning - sklnslcxgqt-kixkljqjd-ydinwc er (TRELEGY ELLIPTA) 100-62.5-25 mcg inhalation powder [...] 11/25/2019 Pulmo (more content not included)... Normal [facility] CNOVon 05-30-2024 CNOV Office Visit (FAMPWS ) COYRONNIE JAUREGUI I ([id number]) 1950 M Date Time Provider Department 05/30/24 9:20 AM OVIDIO VINCENT [facility]AMPWS During your visit today, we recorded the following information about you: Pulse Blood pressure Weight Height 89/minute 119/66 96.2 kg 1.772 m Ovidio Vincent MD 05/30/2024 1:37 PM Signed Ronnie Lopez Magda is a 73 year old male here [...] Halima Cohen (Rn), RN (Inactive) as Specialty Plastics Heat Welder (Hospice AND Palliative Medicine) Nancie Low, ALICIA as Specialty Plastics Heat Welder (Hematology/Oncology) Marta Lui, ALICIA as Child Psychometrist Murray Mooney MD (Hematology/Oncology) Leno Márquez MD (Orthopedics) Loretta Leon PA-C (Pulmonary and Critical Care Medicine) Dr. Ward: [facility] Medical/Family history review Reviewed [...] of deep veins of both lower extremities ([facility]) Comment: Eliquis started 02/2023, can stop 08/202309/30/2022: Advance directive discussed with patient Comment: Discussed 09/2022: up to date 03/15/2021: Allergic rhinitis 12/16/2022: At high risk for falls 06/13/2018: 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[facility]) Comment: Day: +12; Engrafted Protocol(s): 3422 1C Preparative regimen: melphalan Mobilization regimen: neupogen and plerixafor Stem cell source: apheresis CD34 cell dose (x10e6/kg): 5.14 Date of transplant: 06/15/2018 09/30/2022: Bilateral leg edema 04/21/2021: Cancer of the skin, basal cell Comment: excised 04/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 No date: Cervical spondylosis without myelopathy 03/30/2023: Chronic renal failure, stage 3a ([facility]) 03/15/2021: COPD (chronic obstructive pulmonary disease) ([facility]) 12 (more content not included)... Normal [facility] Dion 05-29-2024 [place] Telephone ([facility]) RONNIE YARBROUGH I ([id number]) 1950 M Date Time Provider Department 05/29/24 [...] Take one daily in the morning - uhcpztsrtlj-chwftpadp-huphrv er (TRELEGY ELLIPTA) 100-62.5-25 mcg inhalation powder [...] (HCC) [Z01.00, (more content not included)... Normal [facility] RONNIE YARBROUGH I ([id number]) 1950 M Date Time Provider Department 05/29/24 [...] two times a day with meals. Per [facility] - atorvastatin (LIPITOR) 40 mg [...] Take one daily in the morning - yoxowysrvrv-ccgrrfsqc-tvjesj er (TRELEGY ELLIPTA) 100-62.5-25 mcg inhalation powder [...] [J30.9] 03/15/2021 (more content not included)... Normal [facility] MR Brain WO contraston 05-29 IMPRESSION: Mild volume loss which is predominantly frontal in distribution and suspected remote left orbital blowout fracture. Otherwise normal study. Cable Ferryboat Operator: ROBERTA Transcribe Date/Time: May 29 2024 9:37A Dictated by : HEATH QUINTERO MD This examination was interpreted and the report reviewed and electronically signed by: HEATH QUINTERO MD on May 29 2024 9:44AM [facility] DIVISION OF RADIOLOGY * * *Final Report* * * DATE OF EXAM: May 29 2024 9:33AM [facility] 0294 - MRI BRAIN WO IVCON [...] orbital blowout fracture. DIVISION OF RADIOLOGY Provider, [facility] - 05/29/2024 * * *Final Report* * [...] left orbital blowout fracture. Otherwise normal study. Cable Ferryboat Operator: ROBERTA Transcribe Date/Time: May 29 2024 9:37A Dictated by : HEATH QUINTERO MD This examination was interpreted and the report reviewed and electronically signed by: HEATH QUINTERO MD on May 29 2024 9:44AM EST [facility] Radiology Study observation (narrative) [facility] MR Brain WO contrastOrdered By: [facility] Provider on 05-29-2024 [facility] MRI BRAIN WO IVCONon 024 MRI BRAIN [...] left orbital blowout fracture. Otherwise normal study. Cable Ferryboat Operator: ROBERTA Transcribe Date/Time: May 29 2024 9:37A Dictated by : HEATH QUINTERO MD This examination was interpreted and the report reviewed and electronically signed by: HETAH QUINTERO MD on May 29 2024 9:44AM EST [id number] Normal [facility] US CAROTID ARTERIES ALESSANDRA VAS LABon 05-29-2024 US CAROTID ARTERIES [facility] Non-Invasive Vascular Laboratory [facility] Carotid Duplex Bilateral/Complete Date of service/time: 05/29/2024 [...] Subclavian artery: Patent. Technologist: Rufina Swartz RVT [facility] Ordering physician: OVIDIO VINCENT Interpreting physician: TAYLOR Shaikh DO Final CC Eligible Medical Image : [id number] [email or web address] See Link below for Image Normal [facility] CBC W Auto Differential pane l (Bld)on 05-27-2024 Basophils (Bld) [#/Vol] 10*3/uL Normal <0.11 [facility] Comment on above: Order Comment: Speci men Type: BLOOD SPECIMEN Ordering Facility: [facility] Address: [address] [place] [address] Performed By: #### 5 7021-8 #### [facility] CLIA [id number] [address] [place] [address] [place] Basophils/100 WBC (Bld) 0.1 % Normal [facility] Comment on above: Order Comment: Speci men Type: BLOOD SPECIMEN Ordering Facility: [facility] Address: [address] [place] [address] Performed By: #### 5 7021-8 #### [facility] CLIA [id number] [address] [place] [address] [place] Differential cell count method Nom (Bld) Auto Normal [facility] Comment on above: Order Comment: Speci men Type: BLOOD SPECIMEN Ordering Facility: [facility] Address: [address] [place] [address] Performed By: #### 5 7021-8 #### [id number] [address] [place] [address] [place] Eosinophils (Bld) [#/Vol] 0.03 10*3/uL Normal <0.46 [facility] Comment on above: Order Comment: Speci men Type: BLOOD SPECIMEN Ordering Facility: [facility] Address: [address] [place] [address] Performed By: #### 5 7021-8 #### [facility] [id number] [address] [place] [address] [place] Eosinophils/100 WBC (Bld) 0.4 % Normal [facility] Comment on above: Order Comment: Speci men Type: BLOOD SPECIMEN Ordering Facility: [facility] Address: [address] [place] [address] Performed By: #### 5 7021-8 #### [facility] [id number] [address] [place] [address] [place] Erythrocyte distribution width (RBC) [Ratio] 16.8 % High 11.5-15.0 [facility] Comment on above: Order Comment: Speci men Type: BLOOD SPECIMEN Ordering Facility: [facility] Address: [address] [place] [address] Performed By: #### 5 7021-8 #### [facility] CLIA [id number] [address] [place] [address] [place] Hematocrit (Bld) [Volume fraction] 43.2 % Normal 39.0-51.0 [facility] Comment on above: Order Comment: Speci men Type: BLOOD SPECIMEN Ordering Facility: [facility] Address: [address] [place] [address] Performed By: #### 5 7021-8 #### [facility] CLIA [id number] [address] [place] [address] [place] Hemoglobin (Bld) [Mass/Vol] 13.6 g/dL Normal 13.0-17.0 [facility] Comment on above: Order Comment: Speci men Type: BLOOD SPECIMEN Ordering Facility: [facility] Address: [address] [place] [address] Performed By: #### 5 7021-8 #### [facility] [id number] [address] [place] [address] [place] Immature granulocytes (Bld) [#/Vol] 0.05 10*3/uL Normal <0.10 [facility] Comment on above: Order Comment: Speci men Type: BLOOD SPECIMEN Ordering Facility: [facility] Address: [address] [place] [address] Performed By: #### 5 7021-8 #### [facility] CLIA [id number] [address] [place] [address] [place] Immature granulocytes/100 WBC (Bld) 0.7 % Normal [facility] Comment on above: Order Comment: Speci men Type: BLOOD SPECIMEN Ordering Facility: [facility] Address: [address] [place] [address] Performed By: #### 5 7021-8 #### [facility] [id number] [address] [place] [address] [place] Lymphocytes (Bld) [#/Vol] 0.82 10*3/uL Low 1.00-4.00 [facility] Comment on above: Order Comment: Speci men Type: BLOOD SPECIMEN Ordering Facility: [facility] Address: [address] [place] [address] Performed By: #### 5 7021-8 #### [facility] CLIA [id number] [address] [place] [address] [place] Lymphocytes/100 WBC (Bld) 12.1 % Normal [facility] Comment on above: Order Comment: Speci men Type: BLOOD SPECIMEN Ordering Facility: [facility] Address: [address] [place] [address] Performed By: #### 5 7021-8 #### [facility] [id number] [address] [place] [address] [place] MCH (RBC) [Entitic mass] 25.7 pg Low 26.0-34.0 [facility] Comment on above: Order Comment: Speci men Type: BLOOD SPECIMEN Ordering Facility: [facility] Address: [address] [place] [address] Performed By: #### 5 7021-8 #### [facility] [id number] [address] [place] [address] [place] MCHC (RBC) [Mass/Vol] 31.5 g/dL Normal 30.5-36.0 [facility] Comment on above: Order Comment: Speci men Type: BLOOD SPECIMEN Ordering Facility: [facility] Address: [address] [place] [address] Performed By: #### 5 7021-8 #### [facility] [id number] [address] [place] [address] [place] MCV (RBC) [Entitic vol] 81.7 fL Normal 80.0-100.0 [facility] Comment on above: Order Comment: Speci men Type: BLOOD SPECIMEN Ordering Facility: [facility] Address: [address] [place] [address] Performed By: #### 5 7021-8 #### [facility] CLIA [id number] [address] [place] [address] [place] Monocytes (Bld) [#/Vol] 0.45 10*3/uL Normal <0.87 [facility] Comment on above: Order Comment: Speci men Type: BLOOD SPECIMEN Ordering Facility: [facility] Address: [address] [place] [address] Performed By: #### 5 7021-8 #### [facility] CLIA [id number] [address] [place] [address] [place] Monocytes/100 WBC (Bld) 6.6 % Normal [facility] Comment on above: Order Comment: Speci men Type: BLOOD SPECIMEN Ordering Facility: [facility] Address: [address] [place] [address] Performed By: #### 5 7021-8 #### [facility] CLIA [id number] [address] [place] [address] [place] Neutrophils (Bld) [#/Vol] 5.44 10*3/uL Normal 1.45-7.50 [facility] Comment on above: Order Comment: Speci men Type: BLOOD SPECIMEN Ordering Facility: [facility] Address: [address] [place] [address] Performed By: #### 5 7021-8 #### [facility] CLIA [id number] [address] [place] [address] [place] Neutrophils/100 WBC (Bld) 80.1 % Normal [facility] Comment on above: Order Comment: Speci men Type: BLOOD SPECIMEN Ordering Facility: [facility] Address: [address] [place] [address] Performed By: #### 5 7021-8 #### [facility] CLIA [id number] [address] [place] [address] [place] Nucleated RBC (Bld) [#/Vol] 10*3/uL Normal <0.01 [facility] Comment on above: Order Comment: Speci men Type: BLOOD SPECIMEN Ordering Facility: [facility] Address: [address] [place] [address] Performed By: #### 5 7021-8 #### [facility] CLIA [id number] [address] [place] [address] [place] Nucleated RBC/100 WBC (Bld) [Ratio] 0.0 /[address] [facility] Comment on above: Order Comment: Speci men Type: BLOOD SPECIMEN Ordering Facility: [facility] Address: [address] [place] [address] Performed By: #### 5 7021-8 #### [facility] CLIA [id number] [address] [place] [address] [place] Platelet mean volume (Bld) [Entitic vol] 10.5 fL Normal 9.0-12.7 [facility] Comment on above: Order Comment: Speci men Type: BLOOD SPECIMEN Ordering Facility: [facility] Address: [address] [place] [address] Performed By: #### 5 7021-8 #### [facility] CLIA [id number] [address] [place] [address] [place] Platelets (Bld) [#/Vol] 204 10*3/uL Normal 150-400 [facility] Comment on above: Order Comment: Speci men Type: BLOOD SPECIMEN Ordering Facility: [facility] Address: [address] [place], [place] [address] Performed By: #### 5 7021-8 #### [facility] CLIA [id number] [address] [place] [address] [place] RBC (Bld) [#/Vol] 5.29 10*6/uL Normal 4.20-6.00 [facility] Comment on above: Order Comment: Speci men Type: BLOOD SPECIMEN Ordering Facility: [facility] Address: [address] [place] [address] Performed By: #### 5 7021-8 #### [facility] CLIA [id number] [address] [place] [address] [place] [facility] WBC (Bld) [#/Vol] 6.80 10*3/uL Normal 3.70-11.00 [facility] Comment on above: Order Comment: Speci men Type: BLOOD SPECIMEN Ordering Facility: [facility] Address: [address] [place] [address] Performed By: #### 5 7021-8 #### [facility] CLIA [id number] [address] [place] [address] [place] CK SerPl-cCncon 05-27-2024 CK [Catalytic activity/Vol] 15 U/L Low 51-298 [facility] Comment on above: Order Comment: Speci men Type: BLOOD SPECIMEN Ordering Facility: [facility] Address: [address] [place] [address] Performed By: #### L [id number] #### [facility] CLIA [id number] [address] [place] [address] OF [place] CNOVon 05-27-2024 CNOV Office Visit (PULMWS ) RONNIE YARBROUGH I ([id number]) 1950 M Date Time Provider Department 05/27/24 10:00 AM HAYDE WARD PULMWS During your visit today, we recorded the following information about you: Pulse Blood pressure Weight Height 82/minute 118/70 97.8 kg 1.753 m Hayde Ward MD 05/27/2024 11:56 AM Signed . Respiratory Mission Note Patient name: Ronnie Yarbrough PCP: Ovidio Vincent MD CC: Follow-up COPD HPI: Ronnie Yarbrough 73 year old male former [id number]-imyk smoker, quitting in 2011 with PMH significant [...] of deep veins of both lower extremities ([facility]) Comment: Eliquis started 02/2023, can stop 08/202309/30/2022: Advance directive discussed with patient Comment: Discussed 09/2022: up to date 03/15/2021: Allergic rhinitis 12/16/2022: At high risk for falls 06/13/2018: 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[facility]) Comment: Day: +12; Engrafted Protocol(s): 3422 1C Preparative regimen: melphalan Mobilization regimen: neupogen and plerixafor Stem cell source: apheresis CD34 cell dose (x10e6/kg): 5.14 Date of transplant: 06/15/2018 09/30/2022: Bilateral leg edema 04/21/2021: Cancer of the skin, basal cell Comment: excised 04/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 No date: Cervical spondylosis without myelopathy 03/30/2023: Chronic renal failure, stage 3a ([facility]) 03/15/2021: COPD (chronic obstructive pulmonary disease) ([facility]) 09/09/2021: Diabetic eye exam ([facility]) Comment: Last done 09/09/[address] Juve Reza 06/04/2023: Dilated aortic root ([facility]) Comment: Seeing [facility] 10/06/2021: Discoloration and thickening of nails both feet 07/04/2022: ED (erectile dysfunction) of organic origin 06/04/2023: Enlarged LA (left atrium) Comment: Seeing [facility] 06/13/2018: Essential hypertension Comment: -On lisinopril 10mg daily ( home med) -Will d/c for now given hyperkalemia . 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 Normal [facility] RONNIE YARBROUGH I ([id number]) 1950 M Date Time Provider Department 05/27/24 7:00 AM LESLYE W[facility] During your visit today, we recorded the following information about you: Temperature Pulse Respiration Blood pressure 97.4 degrees 69/minute 18/minute 128/72 Weight 97.1 kg Leslye Winter PA-C 05/27/2024 8:40 AM Signed Chief Complaint Patient presents with: Hospital F/U [facility] Ronnie Lopez Magda is a 73 year old male who presents here today for Hospital Discharge Follow up.. Patient was admitted to [facility] in [place] for septic arthritis of right elbow and [...] is leaving next week for vacation in [place]. Over patient states symptoms have significantly improved. No pain. No fevers. While in hospital, he was also found to be anemic and his BP was low. His bp medications were decreased. Past medical history, appointments, medications, allergies reviewed. Previous Medical History PAST MEDICAL HISTORY 02/24/2023: Acute thromboembolism of deep veins of both lower extremities ([facility]) Comment: Dellaquis started 02/2023, can stop 08/202309/30/2022: Advance directive discussed with patient Comment: Discussed 09/2022: up to date 03/15/2021: Allergic rhinitis 12/16/2022: At high risk for falls 06/13/2018: 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[facility]) Comment: Day: +12; Engrafted Protocol(s): 3422 1C Preparative regimen: melphalan Mobilization regimen: neupogen and plerixafor Stem cell source: apheresis CD34 cell dose (x10e6/kg): 5.14 Date of transplant: 06/15/2018 09/30/2022: Bilateral leg edema 04/21/2021: Cancer of the skin, basal cell Comment: excised 04/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 No date: Cervical spondylosis without myelopathy 03/30/2023: Chronic renal failure, stage 3a ([facility]) 03/15/2021: COPD (chronic obstructive pulmonary disease) ([facility]) 09/09/2021: Diabetic eye exam ([facility]) Comment: Last done 09/09/[address] Juve Reza 06/04/2023: Dilated aortic root ([facility]) Comment: Seeing [facility] 10/06/2021: Discoloration and thickening of nails both feet 07/04/2022: ED (erectile dysfunction) of organic origin 06/04/2023: Enlarged LA (left atrium) Comment: Seeing [facility] 06/13/2018: Essential hypertension Comment: -On lisinopril 10mg daily ( home med) -Will d/c for now given hyperkalemia . 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[facility]) Comment: --ppx ACV and cipro 12/16/2022: Increased weakness when ambulating No date: Inflammatory polyarthropathy (HCC) 01/02/2018: Leg DVT (deep venous thromboembolism), acute, left ([facility]) Comment: --acute DVT gastrocnemius found 12/13/2017 --continue [...] (HCC) No date: Multiple myeloma in remission ([facility]) 10/01/2012: Obesity, Class I, BMI 30-34.9 No date: Osteoarthritis of both hands 06/25/2018: Pancytopenia due to chemotherapy ([facility]) Comment: --Transfuse PRBC and platelets per protocol --GCSF 06/07/2005: Peripheral autonomic neuropathy in disorders classified elsewhere 10/23/2019: Pulmonary hypertension, unspecified ([facility]) 11/13/2006: Spinal stenosis, lumbar region, without neurogenic claudication 12/27/2011: Tobacco abuse Comment: Quit 201204/12/2018: Type 2 diabetes mellitus without complication, without long-term current use of insulin ([facility]) 01/06/2014: Venous insufficiency, peripheral 12/31/2014: Vitamin D deficiency 12/16/2022: Weakness of both lower extremities Previous Surgical History PAST SURGICAL HISTORY 01/28/2013: ANES ARTHROSCOPIC TOTAL SHOULDER REPLACEMENT; Right Comment: [facility] - complete right shoulder replaceement 2009: ARTHRD ANT INTERBODY MIN DSC LUMBAR 1980: ARTHROTOMY W/MENISCUS REPAIR KNEE Comment: RIGHT 1981: ARTHROTOMY W/MENISCUS REPAIR KNEE Comment: LEFT 2007: ARTHRP KNE CONDYLEANDPLATU MEDIALANDLAT COMPARTMENTS; Right Com (more content not included)... Normal [facility] CRP SerPl-mCncon 05-27-2024 CRP [Mass/Vol] 4.7 mg/dL High <0.9 [facility] Comment on above: Order Comment: Speci men Type: BLOOD SPECIMEN Ordering Facility: [facility] Address: [address] [place] [address] Performed By: #### L [id number] #### [facility] CLIA [id number] [address] [place] [address] [place] Ferritin SerPl-ncon 2023 Ferritin [Mass/Vol] 75.0 ng/mL Normal 30.3-565.7 [facility] Comment on above: Order Comment: Speci men Type: BLOOD SPECIMEN Ordering Facility: [facility] Address: [address] [place] [address] Performed By: #### L [id number] #### [facility] CLIA [id number] [address] [place] [address] [place] Folate SerPl-ncon 05-27-20 Folate [Mass/Vol] ng/mL Normal >4.7 [facility] Comment on above: Order Comment: Speci men Type: BLOOD SPECIMEN Ordering Facility: [facility] Address: [address] [place] [address] Result Comment: A re sult of > 20 ng/mL is not necessarily indicative of a pathologic or treatable condition: it reflects a limitation of the test methodology. Assay reference range: 4.8 to 24.2 ng/mL. Suitable for detection of folate deficiency. Reference: Folate III (Folate III) [package insert V 1.0 [place]ian]. [employer], [place], [place]: July 2015. Performed By: #### 2 284-8, 2132-9 #### [facility] CLIA [id number] [address] [place] [address] [place] Iron and Iron binding capaci ty panelon 05-27-2024 Iron [Mass/Vol] 36 ug/dL Low 41-186 [facility] Comment on above: Order Comment: Speci men Type: BLOOD SPECIMEN Ordering Facility: [facility] Address: [address] [place] [address] Performed By: #### L [id number] #### [facility] CLIA [id number] [address] [place] [address] [place] Iron binding capacity [Mass/Vol] 235 ug/dL Normal 232-386 [facility] Comment on above: Order Comment: Speci men Type: BLOOD SPECIMEN Ordering Facility: [facility] Address: [address] [place] [address] Performed By: #### L [id number] #### [facility] CLIA [id number] [address] [place] [address] [place] Iron/TIBC [Molar ratio] 15.3 % Normal 15.0-57.0 [facility] Comment on above: Order Comment: Speci men Type: BLOOD SPECIMEN Ordering Facility: [facility] Address: [address] [place] [address] Performed By: #### L [id number] #### [facility] CLIA [id number] [address] [place] [address] [place] Vit [facility] Cobalamin (Vitamin B12) [Mass/Vol] 539 pg/mL Normal 232-1245 [facility] Comment on above: Order Comment: Speci men Type: BLOOD SPECIMEN Ordering Facility: [facility] Address: [address] [place] [address] Performed By: #### 2 284-8, 2132-9 #### [facility] CLIA [id number] [address] [place] [address] [place] CNOVSPon 05-03-2024 CNOVSP Visit (SP) Office (H [facility]) RONNIE YARBROUGH I ([id number]) 1950 M Date Time Provider Department 05/03/24 [...] of deep veins of both lower extremities ([facility]) Comment: Eliquis started 02/2023, can stop 08/202309/30/2022: Advance directive discussed with patient Comment: Discussed 09/2022: up to date 03/15/2021: Allergic rhinitis 12/16/2022: At high risk for falls 06/13/2018: 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[facility]) Comment: Day: +12; Engrafted Protocol(s): 3422 1C Preparative regimen: melphalan Mobilization regimen: neupogen and plerixafor Stem cell source: apheresis CD34 cell dose (x10e6/kg): 5.14 Date of transplant: 06/15/2018 09/30/2022: Bilateral leg edema 04/21/2021: Cancer of the skin, basal cell Comment: excised 04/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 No date: Cervical spondylosis without myelopathy 03/30/2023: Chronic renal failure, stage 3a ([facility]) 03/15/2021: COPD (chronic obstructive pulmonary disease) ([facility]) 09/09/2021: Diabetic eye exam ([facility]) Comment: Last done 09/09/[address] Juve Reza 06/04/2023: Dilated aortic root ([facility]) Comment: Seeing [facility] 10/06/2021: Discoloration and [...] 04/22/2021: Hypomagnesemia 06/13/2018: 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[facility]) Comment: --ppx ACV and cipro 12/16/2022: Increased weakness when ambulating No date: Inflammatory polyarthropathy ([facility]) 01/02/2018: Leg DVT (deep venous thromboembolism), acute, left ([facility]) Comment: --acute DVT gastrocnemius found 12/13/2017 --continue [...] can resume at discharge 11/28/2017: Multiple myeloma ([facility]) No date: Multiple myeloma in remission ([facility]) 10/01/2012: Obesity, Class I, BMI 30-34.9 No date: Osteoarthritis of both hands 06/25/2018: Pancytopenia due to chemotherapy ([facility]) Comment: --Transfuse PRBC and platelets per protocol --GCSF 06/07/2005: Peripheral autonomic neuropathy in disorders classified elsewhere 10/23/2019: Pulmonary hypertension, unspecified ([facility]) 11/13/2006: Spinal stenosis, lumbar region, without neurogenic claudication 12/27/2011: Tobacco abuse Comment: Quit 201204/12/2018: Type 2 diabetes mellitus without complication, without long-term current use of insulin ([facility]) 01/06/2014: Venous insufficiency, peripheral 12/31/2014: Vitamin D deficiency 12/16/2022: Weakness of both lower extremities PAST SURGICAL HISTORY 01/28/2013: ANES ARTHROSCOPIC TOTAL SHOULDER REPLACEMENT; Right Comment: [facility] - complete right shoulder replaceement 2008: ARTHRD ANT INTERBODY MIN DSC LUMBAR 1980: ARTHROTOMY W/MENISCUS REPAIR KNEE Comment: RIGHT 1982: ARTHROTOMY W/MENISCUS REPAIR KNEE Comment: LEFT 2008: ARTHRP KNE CONDYLEANDPLATU MEDIALANDLAT COMPARTMENTS; Right C (more content not included)... Normal [facility] CBC W Auto Differential pane l (Bld)on 04-26-2024 Basophils (Bld) [#/Vol] 10*3/uL Normal <0.11 [facility] Comment on above: Order Comment: Speci men Type: BLOOD SPECIMEN Ordering Facility: [facility] Address: [address] [place] [address] Performed By: #### 5 7021-8 #### [facility] CLIA [id number] [address] [place] [address] [place] Basophils/100 WBC (Bld) 0.2 % Normal [facility] Comment on above: Order Comment: Speci men Type: BLOOD SPECIMEN Ordering Facility: [facility] Address: [address] [place] [address] Performed By: #### 5 7021-8 #### [facility] CLIA [id number] [address] [place] [address] [place] Differential cell count method Nom (Bld) Auto Normal [facility] Comment on above: Order Comment: Speci men Type: BLOOD SPECIMEN Ordering Facility: [facility] Address: [address] [place] [address] Performed By: #### 5 7021-8 #### [facility] CLIA [id number] [address] [place] [address] [place] Eosinophils (Bld) [#/Vol] 10*3/uL Normal <0.46 [facility] Comment on above: Order Comment: Speci men Type: BLOOD SPECIMEN Ordering Facility: [facility] Address: [address] [place] [address] Performed By: #### 5 7021-8 #### [facility] CLIA [id number] [address] [place] [address] [place] Eosinophils/100 WBC (Bld) 0.2 % Normal [facility] Comment on above: Order Comment: Speci men Type: BLOOD SPECIMEN [facility] [facility] Address: [address] [place] [address] Performed By: #### 5 7021-8 #### [facility] CLIA [id number] [address] [place] [address] [place] Erythrocyte distribution width (RBC) [Ratio] 16.5 % High 11.5-15.0 [facility] Comment on above: Order Comment: Speci men Type: BLOOD SPECIMEN Ordering Facility: [facility] Address: [address] [place] [address] Performed By: #### 5 7021-8 #### [facility] CLIA [id number] [address] [place] [address] [place] Hematocrit (Bld) [Volume fraction] 43.8 % Normal 39.0-51.0 [facility] Comment on above: Order Comment: Speci men Type: BLOOD SPECIMEN Ordering Facility: [facility] Address: [address] [place] [address] Performed By: #### 5 7021-8 #### [facility] CLIA [id number] [address] [place] [address] [place] Hemoglobin (Bld) [Mass/Vol] 13.7 g/dL Normal 13.0-17.0 [facility] Comment on above: Order Comment: Speci men Type: BLOOD SPECIMEN Ordering Facility: [facility] Address: [address] [place] [address] Performed By: #### 5 7021-8 #### [facility] CLIA [id number] [address] [place] [address] [place] Immature granulocytes (Bld) [#/Vol] 0.04 10*3/uL Normal <0.10 [facility] Comment on above: Order Comment: Speci men Type: BLOOD SPECIMEN Ordering Facility: [facility] Address: [address] [place] [address] Performed By: #### 5 7021-8 #### [facility] CLIA [id number] [address] [place] [address] [place] Immature granulocytes/100 WBC (Bld) 0.7 % Normal [facility] Comment on above: Order Comment: Speci men Type: BLOOD SPECIMEN Ordering Facility: [facility] Address: [address] [place] [address] Performed By: #### 5 7021-8 #### [facility] CLIA [id number] [address] [place] [address] [place] Lymphocytes (Bld) [#/Vol] 0.74 10*3/uL Low 1.00-4.00 [facility] Comment on above: Order Comment: Speci men Type: BLOOD SPECIMEN Ordering Facility: [facility] Address: [address] [place] [address] Performed By: #### 5 7021-8 #### [facility] CLIA [id number] [address] [place] [address] [place] Lymphocytes/100 WBC (Bld) 12.4 % Normal [facility] Comment on above: Order Comment: Speci men Type: BLOOD SPECIMEN Ordering Facility: [facility] Address: [address] [place] [address] Performed By: #### 5 7021-8 #### [facility] CLIA [id number] [address] [place] [address] [place] MCH (RBC) [Entitic mass] 25.0 pg Low 26.0-34.0 [facility] Comment on above: Order Comment: Speci men Type: BLOOD SPECIMEN Ordering Facility: [facility] Address: [address] [place] [address] Performed By: #### 5 7021-8 #### [facility] CLIA [id number] [address] [place] [address] [place] MCHC (RBC) [Mass/Vol] 31.3 g/dL Normal 30.5-36.0 [facility] Comment on above: Order Comment: Speci men Type: BLOOD SPECIMEN Ordering Facility: [facility] Address: [address] [place] [address] Performed By: #### 5 7021-8 #### [id number] [address] [place] [address] [place] MCV (RBC) [Entitic vol] 79.9 fL Low 80.0-100.0 [facility] Comment on above: Order Comment: Speci men Type: BLOOD SPECIMEN Ordering Facility: [facility] Address: [address] [place] [address] Performed By: #### 5 7021-8 #### [id number] [address] [place] [address] [place] Monocytes (Bld) [#/Vol] 0.32 10*3/uL Normal <0.87 [facility] Comment on above: Order Comment: Speci men Type: BLOOD SPECIMEN Ordering Facility: [facility] Address: [address] [place] [address] Performed By: #### 5 7021-8 #### [facility] [id number] [address] [place] [address] [place] Monocytes/100 WBC (Bld) 5.4 % Normal [facility] Comment on above: Order Comment: Speci men Type: BLOOD SPECIMEN Ordering Facility: [facility] Address: [address] [place] [address] Performed By: #### 5 7021-8 #### [facility] CLIA [id number] [address] [place] [address] [place] Neutrophils (Bld) [#/Vol] 4.84 10*3/uL Normal 1.45-7.50 [facility] Comment on above: Order Comment: Speci men Type: BLOOD SPECIMEN Ordering Facility: [facility] Address: [address] [place] [address] Performed By: #### 5 7021-8 #### [facility] CLIA [id number] [address] [place] [address] [place] Neutrophils/100 WBC (Bld) 81.1 % Normal [facility] Comment on above: Order Comment: Speci men Type: BLOOD SPECIMEN Ordering Facility: [facility] Address: [address] [place] [address] Performed By: #### 5 7021-8 #### [facility] CLIA [id number] [address] [place] [address] [place] Nucleated RBC (Bld) [#/Vol] 10*3/uL Normal <0.01 [facility] Comment on above: Order Comment: Speci men Type: BLOOD SPECIMEN Ordering Facility: [facility] Address: [address] [place] [address] Performed By: #### 5 7021-8 #### [facility] CLIA [id number] [address] [place] [address] [place] Nucleated RBC/100 WBC (Bld) [Ratio] 0.0 /[address] [facility] Comment on above: Order Comment: Speci men Type: BLOOD SPECIMEN Ordering Facility: [facility] Address: [address] [place] [address] Performed By: #### 5 7021-8 #### [facility] CLIA [id number] [address] [place] [address] [place] Platelet mean volume (Bld) [Entitic vol] 9.8 fL Normal 9.0-12.7 [facility] Comment on above: Order Comment: Speci men Type: BLOOD SPECIMEN Ordering Facility: [facility] Address: [address] [place] [address] Performed By: #### 5 7021-8 #### [facility] CLIA [id number] [address] [place] [address] [place] Platelets (Bld) [#/Vol] 183 10*3/uL Normal 150-400 [facility] Comment on above: Order Comment: Speci men Type: BLOOD SPECIMEN Ordering Facility: [facility] Address: [address] [place] [address] Performed By: #### 5 7021-8 #### [facility] CLIA [id number] [address] [place] [address] [place] RBC (Bld) [#/Vol] 5.48 10*6/uL Normal 4.20-6.00 [facility] Comment on above: Order Comment: Speci men Type: BLOOD SPECIMEN Ordering Facility: [facility] Address: [address] [place] [address] Performed By: #### 5 7021-8 #### [facility] CLIA [id number] [address] [place] [address] [place] WBC (Bld) [#/Vol] 5.96 10*3/uL Normal 3.70-11.00 [facility] Comment on above: Order Comment: Speci men Type: BLOOD SPECIMEN Ordering Facility: [facility] Address: [address] [place] [address] Performed By: #### 5 7021-8 #### [facility] CLIA [id number] [address] [place], [place] [address] [place] Comprehensive metabolic 2000 panelon 04-26-2024 Albumin [Mass/Vol] 3.8 g/dL Low 3.9-4.9 [facility] Comment on above: Order Comment: Speci men Type: BLOOD SPECIMEN Ordering Facility: [facility] Address: [address] [place] [address] Performed By: #### I FESC #### [facility] CLIA [id number] [address] [place] [address] [place] ALP [Catalytic activity/Vol] 81 U/L Normal 38-113 [facility] Comment on above: Order Comment: Speci men Type: BLOOD SPECIMEN Ordering Facility: [facility] Address: [address] [place] [address] Performed By: #### I FESC #### [facility] CLIA [id number] [address] [place] [address] [place] ALT [Catalytic activity/Vol] 9 U/L Low 10-54 [facility] Comment on above: Order Comment: Speci men Type: BLOOD SPECIMEN Ordering Facility: [facility] Address: [address] [place] [address] Performed By: #### I FESC #### [facility] CLIA [id number] [address] [place] [address] [place] Anion gap [Moles/Vol] 8 mmol/L Normal 8-15 [facility] Comment on above: Order Comment: Speci men Type: BLOOD SPECIMEN Ordering Facility: [facility] Address: [address] [place] [address] Performed By: #### I FESC #### [facility] CLIA [id number] [address] [place] [address] [place] AST [Catalytic activity/Vol] 8 U/L Low 14-40 [facility] Comment on above: Order Comment: Speci men Type: BLOOD SPECIMEN Ordering Facility: [facility] Address: [address] [place] [address] Performed By: #### I FESC #### [facility] CLIA [id number] [address] [place] [address] [place] Bilirubin [Mass/Vol] 0.5 mg/dL Normal 0.2-1.3 [facility] Comment on above: Order Comment: Speci men Type: BLOOD SPECIMEN Ordering Facility: [facility] Address: [address] [place] [address] Performed By: #### I FESC #### [facility] CLIA [id number] [address] [place] [address] [place] Calcium [Mass/Vol] 9.1 mg/dL Normal 8.5-10.2 [facility] Comment on above: Order Comment: Speci men Type: BLOOD SPECIMEN Ordering Facility: [facility] Address: [address] [place] [address] Performed By: #### I FESC #### [facility] CLIA [id number] [address] [place] [address] [place] Chloride [Moles/Vol] 99 mmol/L Normal 98-107 [facility] Comment on above: Order Comment: Speci men Type: BLOOD SPECIMEN Ordering Facility: [facility] Address: [address] [place] [address] Performed By: #### I FESC #### [facility] CLIA [id number] [address] [place] [address] [place] CO2 [Moles/Vol] 29 mmol/L Normal 22-30 [facility] Comment on above: Order Comment: Speci men Type: BLOOD SPECIMEN Ordering Facility: [facility] Address: [address] [place] [address] Performed By: #### I FESC #### [facility] CLIA [id number] [address] [place] [address] [place] Creatinine [Mass/Vol] 0.86 mg/dL Normal 0.73-1.22 [facility] Comment on above: Order Comment: Jessi chen Type: BLOOD SPECIMEN Ordering Facility: [facility] Address: [address] [place] [address] Performed By: #### I FESC #### [facility] CLIA [id number] [address] [place] [address] [place] Creatinine and Glomerular filtration rate.predicted panel (S/P/Bld) 92 mL/min/1.73m??? Normal >=60 [facility] Comment on above: Order Comment: Jessi chen Type: BLOOD SPECIMEN Ordering Facility: [facility] Address: [address] [place] [address] Result Comment: Aleyda mated Glomerular Filtration Rate [...] reflect actual GFR. Performed By: #### I FES #### [facility] CLIA [id number] [address] [place] [address] [place] Glucose [Mass/Vol] 129 mg/dL High 74-99 [facility] Comment on above: Order Comment: Jessi chen Type: BLOOD SPECIMEN Ordering Facility: [facility] Address: [address] [place] [address] Result Comment: The [place] [employer] (ADA) provides guidance for cutoff [...] Standards of Medical Care in Diabetes 2016, [place] [employer]. Diabetes Care. 2016.39(Suppl 1). Performed By: #### I FESC #### [facility] CLIA [id number] [address] [place] [address] [place] Potassium [Moles/Vol] 4.0 mmol/L Normal 3.7-5.1 [facility] Comment on above: Order Comment: Speci men Type: BLOOD SPECIMEN Ordering Facility: [facility] Address: [address] [place] [address] Performed By: #### I FESC #### [facility] CLIA [id number] [address] [place] [address] [place] Protein [Mass/Vol] 6.0 g/dL Low 6.3-8.0 [facility] Comment on above: Order Comment: Speci men Type: BLOOD SPECIMEN Ordering Facility: [facility] Address: [address] [place] [address] Performed By: #### I FESC #### [facility] CLIA [id number] [address] [place] [address] [place] Sodium [Moles/Vol] 136 mmol/L Normal 136-144 [facility] Comment on above: Order Comment: Speci men Type: BLOOD SPECIMEN Ordering Facility: [facility] Address: [address] [place] [address] Performed By: #### I FESC #### [facility] CLIA [id number] [address] [place] [address] [place] Urea nitrogen [Mass/Vol] 20 mg/dL Normal 9-24 [facility] Comment on above: Order Comment: Speci men Type: BLOOD SPECIMEN Ordering Facility: [facility] Address: [address] [place] [address] Performed By: #### I FESC #### [facility] CLIA [id number] [address] [place] [address] [place] IMMUNOFIXATION SCREEN, SERUM on 04-26-2024 MPA RESULT No M protein is identified. Normal No M protein is identified. [facility] Comment on above: Order Comment: Speci men Type: BLOOD SPECIMEN Ordering Facility: [facility] Address: [address] [place] [address] Performed By: #### I FESC #### [facility] CLIA [id number] [address] [place] [address] [place] STAFF REVIEW (MPA) Reviewed by Vandana patel MD [facility] Comment on above: Order Comment: Speci men Type: BLOOD SPECIMEN Ordering Facility: [facility] Address: [address] [place] [address] Performed By: #### I FES #### [facility] CLIA [id number] [address] [place] [address] [place] IMMUNOGLOBULINS,IGG,IGA,IGMo n 04-26-2024 IgA [Mass/Vol] 72 mg/dL Normal 70-400 [facility] Comment on above: Order Comment: Speci men Type: BLOOD SPECIMEN Ordering Facility: [facility] Address: [address] [place] [address] Performed By: #### 5 7021-8 #### [facility] CLIA [id number] [address] [place] [address] [place] IgG [Mass/Vol] 627 mg/dL Low 700-1600 [facility] Comment on above: Order Comment: Speci men Type: BLOOD SPECIMEN Ordering Facility: [facility] Address: [address] [place] [address] Performed By: #### 5 7021-8 #### [facility] CLIA [id number] [address] [place] [address] [place] IgM [Mass/Vol] 49 mg/dL Normal 40-230 [facility] Comment on above: Order Comment: Speci men Type: BLOOD SPECIMEN Ordering Facility: [facility] Address: [address] [place] [address] Performed By: #### 5 7021-8 #### [facility] CLIA [id number] [address] [place] [address] [place] KAPPA/PHAN,FREE,SERon 2023 Immunoglobulin light chains.kappa.free (S) [Mass/Vol] 18.5 mg/L Normal 3.3-19.4 [facility] Comment on above: Order Comment: Speci men Type: BLOOD SPECIMEN Ordering Facility: [facility] Address: [address] [place] [address] Result Comment: Rare ly, increased serum free light chains levels may not be detected or accurately quantified due to prozone phenomenon or in high viscosity samples using this immunoturbidimetric assay. Correlation with other laboratory results and clinical findings is recommended. The [place] Free Light Chain was performed using the Binding Site Optilite immunoturbidimetric method. Result obtained with different assay methods or kits cannot be used interchangeably. Performed By: #### L [id number] #### [facility] CLIA [id number] [address] [place] [address] [place] Immunoglobulin light chains.kappa/Immunog lobulin light chains.lambda (S) [Mass ratio] 1.17 Normal 0.26-1.65 [facility] Comment on above: Order Comment: Speci [facility] Type: BLOOD SPECIMEN Ordering Facility: [facility] Address: [address] [place] [address] Performed By: #### L [id number] #### [facility] CLIA [id number] [address] [place] [address] [place] Immunoglobulin light chains.lambda.free [Mass/Vol] 15.8 mg/L Normal 5.7-26.3 [facility] Comment on above: Order Comment: Speci men Type: BLOOD SPECIMEN Ordering Facility: [facility] Address: [address] [place] [address] Result Comment: Rare ly, increased serum free [...] cannot be used interchangeably. Performed By: #### L [id number] #### [facility] CLIA [id number] [address] [place] [address] [place] PROTEIN ELECTROPHORESIS SERU M (P)on 04-26-2024 Albumin [Mass/Vol] 3.39 g/dL Low 3.43-5.41 [facility] Comment on above: Order Comment: Speci men Type: BLOOD SPECIMEN Ordering Facility: [facility] Address: [address] [place] [address] Performed By: #### L [id number] #### [facility] CLIA [id number] [address] [place] [address] [place] Alpha 1 globulin Elph [Mass/Vol] 0.33 g/dL Normal 0.18-0.43 [facility] Comment on above: Order Comment: Speci men Type: BLOOD SPECIMEN Ordering Facility: [facility] Address: [address] [place] [address] Performed By: #### L [id number] #### [facility] CLIA [id number] [address] [place] [address] [place] Alpha 2 globulin Elph [Mass/Vol] 0.77 g/dL Normal 0.42-0.98 [facility] Comment on above: Order Comment: Speci men Type: BLOOD SPECIMEN Ordering Facility: [facility] Address: [address] [place] [address] Performed By: #### L [id number] #### [facility] CLIA [id number] [address] [place] [address] [place] Beta globulin Elph [Mass/Vol] 0.65 g/dL Normal 0.61-1.17 [facility] Comment on above: Order Comment: Speci men Type: BLOOD SPECIMEN Ordering Facility: [facility] Address: [address] [place] [address] Performed By: #### L [id number] #### [facility] CLIA [id number] [address] [place] [address] [place] Gamma globulin Elph [Mass/Vol] 0.47 g/dL Low 0.53-1.51 [facility] Comment on above: Order Comment: Carlyi men Type: BLOOD SPECIMEN Ordering Facility: [facility] Address: [address] [place] [address] Performed By: #### L [id number] #### [facility] CLIA [id number] [address] [place] [address] [place] INTERPRETATION COMMENT FOR PROTEIN ELECTROPHORESIS Hypogammaglobulinemia is present, which can be seen in the setting of monoclonal gammopathy. If clinically indicated, monoclonal protein analysis and serum free light chain analysis are suggested to evaluate further for monoclonal gammopathy. Normal [facility] Comment on above: Order Comment: Jessi chen Type: BLOOD SPECIMEN Ordering Facility: [facility] Address: [address] [place] [address] Performed By: #### L [id number] #### [facility] CLIA [id number] [address] [place] [address] [place] M-PROTEIN LOCATION Normal [facility] Comment on above: Order Comment: Jessi april Type: BLOOD SPECIMEN Ordering Facility: [facility] Address: [address] [place] [address] Result Comment: Not Applicable. Performed By: #### L [id number] #### [facility] CLIA [id number] [address] [place] [address] [place] Protein Fractions [Interp] No definitive M protein is identified on protein electrophoresis. Normal No definitive M protein is identified on protein electrophore sis. [facility] Comment on above: Order Comment: Jessi april Type: BLOOD SPECIMEN Ordering Facility: [facility] Address: [address] [place] [address] Performed By: #### L [id number] #### [facility] CLIA [id number] [address] [place] [address] [place] Protein.monoclonal Elph [Mass/Vol] 0.00 g/dL Normal <=0.00 [facility] Comment on above: Order Comment: Speci men Type: BLOOD SPECIMEN Ordering Facility: [facility] Address: [address] [place] [address] Performed By: #### L [id number] #### [facility] CLIA [id number] [address] [place] [address] [place] SPE STAFF REVIEW Reviewed by Vandana patel MD [facility] Comment on above: Order Comment: Speci men Type: BLOOD SPECIMEN Ordering Facility: [facility] Address: [address] [place] [address] Performed By: #### L [id number] #### [facility] CLIA [id number] [address] [place] [address] [place] Prot SerPl-mCncon 04-26-2024 Protein [Mass/Vol] 5.6 g/dL Low 6.3-8.0 [facility] Comment on above: Order Comment: Speci men Type: BLOOD SPECIMEN Ordering Facility: [facility] Address: [address] [place] [address] Performed By: #### I [facility] #### [facility] CLIA [id number] [address] [place] [address] [place] PT D/C Summary (1)on 024 PT D/C Summary (1) [facility] Physical Therapy [address] [place] [address] / REHABILITATION SERVICES DISCHARGE SUMMARY MR#: [id number] Acct: [id number] Name: RONNIE YARBROUGH Rep #: [id number] : 1950 73 From: Chuck Veliz DPT Referring Dr.: LEO Rivera Status: REG RCR Insurance: [employer] [facility] SELF PAY INSURANCE Discharge Summary D/C summary: [...] LTG: Pt. to have improved FGA to /30 indicated increased stability in stance. Goal Progress: [...] please feel free to call me at [phone]. Thank you for the referral of this patient. Sincerely, Chuck Veliz DPT Balance/Gait/Functional tests Balance/Special Test Scores Functional Gait Assessment Score: 24 % Disability: 20.0000 Oswestry Low Back Score: 12 Dizziness Score: 22 TUG Test Time Seconds: 10.3 Tug Test: <20 sec.=mostly independent Improvement % Improvement: 80 04/25/24 0733 CC: LEO Rivera; Dr. Ovidio Vincent MD CLS Signed Normal [facility] Initial Evaluation (2) - PTo n 04-22-2024 Initial Evaluation (2) - PT [facility] Physical Therapy [facility] [address] [place] [address]. [address] [place] [address] / REHABILITATION SERVICES INITIAL EVALUATION MR#: [id number] Acct: [id number] Name: RONNIE YARBROUGH Rep #: [id number] : 1950 73 From: Daniel Gupta DPT, SAYDA, CSCS Referring DrAniceto: LEO Warner Status: REG RCR [facility] Patient's Visit Information [...] been getting this dizzy for 3 yrs. [id number] is Ok and he sleeps flat in [...] this weekend and gone 3 weeks, to [place]. 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 No falls lately and [...] to be FAXED BACK to us at [phone] for Medicare purposes. For Medicare only, by signing this I certify the plan of care. Please let me know if there are questions or concerns regarding this plan of care. Physician Signature: ___Date: 04/22/24 0744 CC: LEO Rivera; Dr. Ovidio Vincent MD EBG Signed Normal [facility] 25([place])D3 [facility] 2023 25-hydroxyvitamin D3 [Mass/Vol] 34.7 ng/mL Normal 31.0-80.0 [facility] Comment on above: Order Comment: Jessi chen Type: BLOOD SPECIMEN Ordering Facility: [facility] Address: [address] [place] [address] Result Comment: Clas sification of 25 [place] Vitamin D status: Deficiency/Insufficiency: < or = 30 ng/ml. Sufficiency/Optimal Levels: 31-80 ng/mL Toxicity: > 100 ng/mL. Test performed by chemiluminescent immunoassay. Performed By: #### 5 7021-8 #### [facility] CLIA [id number] [address] [place], [place] [id number] [place] ALBUMIN/CREATININE RATIO, INEon 04-16-2024 Albumin DL <= 20 mg/L (U) [Mass/Vol] 17.3 mg/L Normal [facility] Comment on above: Order Comment: Speci men Type: URINE SPECIMEN Ordering Facility: [facility] Address: [address] [place] [address] Performed By: #### U ACR #### [facility] CLIA [id number] [address] [place] [address] [place] Albumin/Creatinine (U) [Mass ratio] 14 mg/g Normal <30 [facility] Comment on above: Order Comment: Speci men Type: URINE SPECIMEN Ordering Facility: [facility] Address: [address] [place] [address] Result Comment: Adul t Male and Female Nephrotic Criteria: <30 mg/g is considered normal to mildly increased 30-300 mg/g is considered moderately increased >300 mg/g is considered severely increased KDIGO. (2013). KDIGO 2012 Clinical Practice Guideline for the Evaluation and Management of Chronic Kidney Disease. Official Journal of the International Society of Nephrology, 3(1), 1-150. Performed By: #### U ACR #### [facility] CLIA [id number] [address] [place] [address] [place] Creatinine (U) [Mass/Vol] 122.5 mg/dL Normal 20.0-300.0 [facility] Comment on above: Order Comment: Speci men Type: URINE SPECIMEN Ordering Facility: [facility] Address: [address] [place] [address] Performed By: #### U ACR #### [facility] CLIA [id number] [address] [place] [address] [place] CBC W Auto Differential pane l (Bld)on 04-16-2024 Basophils (Bld) [#/Vol] 10*3/uL Normal <0.11 [facility] Comment on above: Order Comment: Speci men Type: BLOOD SPECIMEN Ordering Facility: [facility] Address: [address] [place] [address] Performed By: #### 5 7021-8 #### [facility] CLIA [id number] [address] [place] [address] [place] Basophils/100 WBC (Bld) 0.1 % Normal [facility] Comment on above: Order Comment: Speci men Type: BLOOD SPECIMEN Ordering Facility: [facility] Address: [address] [place] [address] Performed By: #### 5 7021-8 #### [facility] CLIA [id number] [address] [place] [address] [place] Differential cell count method Nom (Bld) Auto Normal [facility] Comment on above: Order Comment: Speci men Type: BLOOD SPECIMEN Ordering Facility: [facility] Address: [address] [place] [address] Performed By: #### 5 7021-8 #### [facility] CLIA [id number] [address] [place] [address] [place] Eosinophils (Bld) [#/Vol] 10*3/uL Normal <0.46 [facility] Comment on above: Order Comment: Speci men Type: BLOOD SPECIMEN Ordering Facility: [facility] Address: [address] [place] [address] Performed By: #### 5 7021-8 #### [facility] CLIA [id number] [address] [place] [address] [place] Eosinophils/100 WBC (Bld) 0.2 % Normal [facility] Comment on above: Order Comment: Speci men Type: BLOOD SPECIMEN Ordering Facility: [facility] Address: [address] [place] [address] Performed By: #### 5 7021-8 #### [facility] CLIA [id number] [address] [place] [address] [place] Erythrocyte distribution width (RBC) [Ratio] 17.4 % High 11.5-15.0 [facility] Comment on above: Order Comment: Speci men Type: BLOOD SPECIMEN Ordering Facility: [facility] Address: [address] [place] [address] Performed By: #### 5 7021-8 #### [facility] CLIA [id number] [address] [place] [address] [place] Hematocrit (Bld) [Volume fraction] 46.8 % Normal 39.0-51.0 [facility] Comment on above: Order Comment: Speci men Type: BLOOD SPECIMEN Ordering Facility: [facility] Address: [address] [place] [address] Performed By: #### 5 7021-8 #### [facility] CLIA [id number] [address] [place] [address] [place] Hemoglobin (Bld) [Mass/Vol] 14.4 g/dL Normal 13.0-17.0 [facility] Comment on above: Order Comment: Speci men Type: BLOOD SPECIMEN Ordering Facility: [facility] Address: [address] [place] [address] Performed By: #### 5 7021-8 #### [id number] [address] [place] [address] [place] Immature granulocytes (Bld) [#/Vol] 0.06 10*3/uL Normal <0.10 [facility] Comment on above: Order Comment: Speci men Type: BLOOD SPECIMEN Ordering Facility: [facility] Address: [address] [place] [address] Performed By: #### 5 7021-8 #### [facility] [id number] [address] [place] [address] [place] Immature granulocytes/100 WBC (Bld) 0.7 % Normal [facility] Comment on above: Order Comment: Speci men Type: BLOOD SPECIMEN Ordering Facility: [facility] Address: [address] [place] [address] Performed By: #### 5 7021-8 #### [facility] CLIA [id number] [address] [place] [address] [place] Lymphocytes (Bld) [#/Vol] 0.87 10*3/uL Low 1.00-4.00 [facility] Comment on above: Order Comment: Speci men Type: BLOOD SPECIMEN Ordering Facility: [facility] Address: [address] [place] [address] Performed By: #### 5 7021-8 #### [facility] CLIA [id number] [address] [place] [address] [place] Lymphocytes/100 WBC (Bld) 9.8 % Normal [facility] Comment on above: Order Comment: Speci men Type: BLOOD SPECIMEN Ordering Facility: [facility] Address: [address] [place] [address] Performed By: #### 5 7021-8 #### [facility] [id number] [address] [place] [address] [place] MCH (RBC) [Entitic mass] 25.6 pg Low 26.0-34.0 [facility] Comment on above: Order Comment: Speci men Type: BLOOD SPECIMEN Ordering Facility: [facility] Address: [address] [place] [address] Performed By: #### 5 7021-8 #### [facility] [id number] [address] [place] [address] [place] MCHC (RBC) [Mass/Vol] 30.8 g/dL Normal 30.5-36.0 [facility] Comment on above: Order Comment: Speci men Type: BLOOD SPECIMEN Ordering Facility: [facility] Address: [address] [place] [address] Performed By: #### 5 7021-8 #### [facility] [id number] [address] [place] [address] [place] MCV (RBC) [Entitic vol] 83.1 fL Normal 80.0-100.0 [facility] Comment on above: Order Comment: Speci men Type: BLOOD SPECIMEN Ordering Facility: [facility] Address: [address] [place] [address] Performed By: #### 5 7021-8 #### [facility] CLIA [id number] [address] [place] [address] [place] Monocytes (Bld) [#/Vol] 0.62 10*3/uL Normal <0.87 [facility] Comment on above: Order Comment: Speci men Type: BLOOD SPECIMEN Ordering Facility: [facility] Address: [address] [place] [address] Performed By: #### 5 7021-8 #### [facility] CLIA [id number] [address] [place] [address] [place] Monocytes/100 WBC (Bld) 7.0 % Normal [facility] Comment on above: Order Comment: Speci men Type: BLOOD SPECIMEN Ordering Facility: [facility] Address: [address] [place] [address] Performed By: #### 5 7021-8 #### [facility] CLIA [id number] [address] [place] [address] [place] Neutrophils (Bld) [#/Vol] 7.28 10*3/uL Normal 1.45-7.50 [facility] Comment on above: Order Comment: Speci men Type: BLOOD SPECIMEN Ordering Facility: [facility] Address: [address] [place], [place] [address] Performed By: #### 5 7021-8 #### [facility] CLIA [id number] [address] [place] [address] [place] Neutrophils/100 WBC (Bld) 82.2 % Normal [facility] Comment on above: Order Comment: Speci men Type: BLOOD SPECIMEN Ordering Facility: [facility] Address: [address] [place] [address] Performed By: #### 5 7021-8 #### [facility] CLIA [id number] [address] [place] [address] [place] Nucleated RBC (Bld) [#/Vol] 10*3/uL Normal <0.01 [facility] Comment on above: Order Comment: Speci men Type: BLOOD SPECIMEN Ordering Facility: [facility] Address: [address] [place] [address] Performed By: #### 5 7021-8 #### [facility] CLIA [id number] [address] [place] [address] [place] Nucleated RBC/100 WBC (Bld) [Ratio] 0.0 /[address] [facility] Comment on above: Order Comment: Speci men Type: BLOOD SPECIMEN Ordering Facility: [facility] Address: [address] [place] [address] Performed By: #### 5 7021-8 #### [facility] CLIA [id number] [address] [place] [address] [place] Platelet mean volume (Bld) [Entitic vol] 10.9 fL Normal 9.0-12.7 [facility] Comment on above: Order Comment: Speci men Type: BLOOD SPECIMEN Ordering Facility: [facility] Address: [address] [place] [address] Performed By: #### 5 7021-8 #### [facility] CLIA [id number] [address] [place] [address] [place] Platelets (Bld) [#/Vol] 181 10*3/uL Normal 150-400 [facility] Comment on above: Order Comment: Speci men Type: BLOOD SPECIMEN Ordering Facility: [facility] Address: [address] [place] [address] Performed By: #### 5 7021-8 #### [facility] CLIA [id number] [address] [place] [address] [place] RBC (Bld) [#/Vol] 5.63 10*6/uL Normal 4.20-6.00 [facility] Comment on above: Order Comment: Speci men Type: BLOOD SPECIMEN Ordering Facility: [facility] Address: [address] [place] [address] Performed By: #### 5 7021-8 #### [facility] CLIA [id number] [address] [place] [address] [facility] [place] WBC (Bld) [#/Vol] 8.86 10*3/uL Normal 3.70-11.00 [facility] Comment on above: Order Comment: Speci men Type: BLOOD SPECIMEN Ordering Facility: [facility] Address: [address] [place], [place] [address] Performed By: #### 5 7021-8 #### [facility] CLIA [id number] [address] [place] [address] OF [facility] CNOVon 04-16-2024 [facility] RONNIE YARBROUGH I ([id number]) 1950 M Date Time Provider Department 04/16/24 [...] for quite some time. Patient has seen [facility] and they decreased his Coreg [...] CM 5.7 High CM Patient see [facility] last visit 09/2023 Paroxysmal atrial fibrillation (HCC) - ICD9: 427.31, ICD10: I48.0 - patient see [facility] last visit 02/2024 Patient sees pulmonary last visit 11/2023 Past medical history, appointments, medications, allergies reviewed. 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 Day: +12; Engrafted Protocol(s): 3422 1C Preparative regimen: melphalan Mobilization regimen: neupogen and plerixafor Stem cell source: apheresis CD34 cell dose (x10e6/kg): 5.14 Date of transplant: 06/15/2018 Bilateral leg edema 09/30/2022 Cancer of the skin, 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 Cervical spondylosis without myelopathy COPD (chronic obstructive pulmonary disease) ([facility]) 03/15/2021 Diabetic eye exam ([facility]) 09/09/2021 Last done 09/09/[address] Juve Reza Dilated aortic root ([facility]) 06/04/2023 Seeing [facility] Discoloration and thickening of nails both feet 10/06/2021 ED (erectile dysfunction) of organic origin 07/04/2022 Enlarged LA (left atrium) 06/04/2023 Seeing [facility] Essential hypertension 06/13/2018 -On lisinopril 10mg daily ( home med) -Will d/c for now given hyperkalemia . 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 Normal [facility] CNPNon 04-16-2024 CNPN Telephone ([facility]) RONNIE YARBROUGH I ([id number]) 1950 M Date Time Provider Department 04/16/24 [facility] During your visit today, we recorded the following information about you: Ramu Alanis MA 04/16/2024 9:16 AM Signed Faxed Order Nurao Last O/V To [facility]. Ramu Alanis MA Allergies As of Date: 04/16/2024 Noted Allergy Reaction GABAPENTIN 06/24/2018 14 - Other: See Comments Comments: Depression/suicidal ideation Date Reviewed: 04/16/2024 Reviewed by: Ramu Alanis MA - Fully Assessed Reason for Visit: Appointment [186] Cmt: PT - [facility] Prescriptions as of 04/16/2024 - dulaglutide (TRULICITY) [...] two times a day with meals. Per [facility] - torsemide (DEMADEX) 20 mg [...] as needed for wheezing/shortness of breath. - yvhjweguteh-miekghmvk-sxcfex er (TRELEGY ELLIPTA) 100-62.5-25 mcg inhalation powder [...] Medicare lizette (more content not included)... Normal [facility] Comprehensive metabolic 2000 panelon 04-16-2024 Albumin [Mass/Vol] 4.1 g/dL Normal 3.9-4.9 [facility] Comment on above: Order Comment: Speci men Type: BLOOD SPECIMEN Ordering Facility: [facility] Address: [address] [place], [place] [address] Performed By: #### 5 7021-8 #### [facility] CLIA [id number] [address] [place] [address] [place] ALP [Catalytic activity/Vol] 77 U/L Normal 38-113 [facility] Comment on above: Order Comment: Speci men Type: BLOOD SPECIMEN Ordering Facility: [facility] Address: [address] [place], [place] [address] Performed By: #### 5 7021-8 #### [facility] CLIA [id number] [address] [place] [address] [place] ALT [Catalytic activity/Vol] 10 U/L Normal 10-54 [facility] Comment on above: Order Comment: Speci men Type: BLOOD SPECIMEN Ordering Facility: [facility] Address: [address] [place] [address] Performed By: #### 5 7021-8 #### [facility] CLIA [id number] [address] [place] [address] [place] Anion gap [Moles/Vol] 12 mmol/L Normal 8-15 [facility] Comment on above: Order Comment: Speci men Type: BLOOD SPECIMEN Ordering Facility: [facility] Address: [address] [place] [address] Performed By: #### 5 7021-8 #### [facility] CLIA [id number] [address] [place] [address] [place] AST [Catalytic activity/Vol] 12 U/L Low 14-40 [facility] Comment on above: Order Comment: Speci men Type: BLOOD SPECIMEN Ordering Facility: [facility] Address: [address] [place] [address] Performed By: #### 5 7021-8 #### [facility] CLIA [id number] [address] [place] [address] [place] Bilirubin [Mass/Vol] 0.7 mg/dL Normal 0.2-1.3 [facility] Comment on above: Order Comment: Speci men Type: BLOOD SPECIMEN Ordering Facility: [facility] Address: [address] [place] [address] Performed By: #### 5 7021-8 #### [facility] CLIA [id number] [address] [place] [address] [place] Calcium [Mass/Vol] 9.6 mg/dL Normal 8.5-10.2 [facility] Comment on above: Order Comment: Speci men Type: BLOOD SPECIMEN Ordering Facility: [facility] Address: [address] [place] [address] Performed By: #### 5 7021-8 #### [facility] CLIA [id number] [address] [place] [address] [place] Chloride [Moles/Vol] 100 mmol/L Normal 98-107 [facility] Comment on above: Order Comment: Speci men Type: BLOOD SPECIMEN Ordering Facility: [facility] Address: [address] [place] [address] Performed By: #### 5 7021-8 #### [facility] CLIA [id number] [address] [place] [address] [place] CO2 [Moles/Vol] 27 mmol/L Normal 22-30 [facility] Comment on above: Order Comment: Speci men Type: BLOOD SPECIMEN Ordering Facility: [facility] Address: [address] [place] [address] Performed By: #### 5 7021-8 #### [facility] CLIA [id number] [address] [place] [address] [place] Creatinine [Mass/Vol] 0.88 mg/dL Normal 0.73-1.22 [facility] Comment on above: Order Comment: Jessi chen Type: BLOOD SPECIMEN Ordering Facility: [facility] Address: [address] [place] [address] Performed By: #### 5 7021-8 #### [facility] [id number] [address] [place] [address] [place] Creatinine and Glomerular filtration rate.predicted panel (S/P/Bld) 91 mL/min/1.73m??? Normal >=60 [facility] Comment on above: Order Comment: Jessi chen Type: BLOOD SPECIMEN Ordering Facility: [facility] Address: [address] [place] [address] Result Comment: Aleyda mated Glomerular Filtration Rate [...] GFR. Performed By: #### 5 7021-8 #### [facility] CLIA [id number] [address] [place] [address] [place] Glucose [Mass/Vol] 118 mg/dL High 74-99 [facility] Comment on above: Order Comment: Jessi chen Type: BLOOD SPECIMEN Ordering Facility: [facility] Address: [address] [address] Result Comment: The [place] Diabetes Association (ADA) provides guidance for cutoff [...] Standards of Medical Care in Diabetes 2016, [place] Diabetes Association. Diabetes Care. 2016.39(Suppl 1). Performed By: #### 5 7021-8 #### [facility] CLIA [id number] [address] [place] [address] [place] Potassium [Moles/Vol] 4.5 mmol/L Normal 3.7-5.1 [facility] Comment on above: Order Comment: Jessi chen Type: BLOOD SPECIMEN Ordering Facility: [facility] Address: [address] [place] [address] Performed By: #### 5 7021-8 #### [facility] [id number] [address] [place] [address] [place] Protein [Mass/Vol] 6.5 g/dL Normal 6.3-8.0 [facility] Comment on above: Order Comment: Jessi chen Type: BLOOD SPECIMEN Ordering Facility: [facility] Address: [address] [place], [place] [address] Performed By: #### 5 7021-8 #### [facility] [id number] [address] [place] [address] [place] Sodium [Moles/Vol] 139 mmol/L Normal 136-144 [facility] Comment on above: Order Comment: Jessi chen Type: BLOOD SPECIMEN Ordering Facility: [facility] Address: [address] [place] [address] Performed By: #### 5 7021-8 #### [facility] CLIA [id number] [address] [place] [address] [place] Urea nitrogen [Mass/Vol] 21 mg/dL Normal 9-24 [facility] Comment on above: Order Comment: Speci men Type: BLOOD SPECIMEN Ordering Facility: [facility] Address: [address] [place] [address] Performed By: #### 5 7021-8 #### [facility] CLIA [id number] [address] [place] [address] [place] HbA1c (Bld)on 04-16-2024 Average glucose Estimated from glycated hemoglobin (Bld) [Mass/Vol] 154 mg/dL Normal [facility] Comment on above: Order Comment: Jessi chen Type: BLOOD SPECIMEN Ordering Facility: [facility] Address: [address] [place] [address] Result Comment: eAG: (Estimated average glucose) is a calculated value from HgbA1c and is lead generation representative of the average blood glucose level in the last 2-3 month period. Performed By: #### 5 7021-8 #### [facility] [id number] [address] [place] [address] [place] HbA1c (Bld) [Mass fraction] 7.0 % High 4.3-5.6 [facility] Comment on above: Order Comment: Jessi chen Type: BLOOD SPECIMEN Ordering Facility: [facility] Address: [address] [place] [address] Result Comment: [place] Diabetes Association guidelines indicate that patients with HgbA1c in the range 5.7-6.4% are at increased risk for development of diabetes, and intervention by lifestyle modification may be beneficial. HgbA1c greater or equal to 6.5% is considered diagnostic of diabetes. Performed By: #### 5 7021-8 #### [facility] [id number] [address] [place] [address] [facility] [place] LIPID PANEL, NONFASTINGon Cholesterol [Mass/Vol] 121 mg/dL Normal <200 [facility] Comment on above: Order Comment: Jessi chen Type: BLOOD SPECIMEN Ordering Facility: [facility] Address: [address] [place] [address] Result Comment: <200 mg/dL, Desirable 200-239 mg/dL, Borderline high >239 mg/dL, High Performed By: #### 5 7021-8 #### [facility] [id number] [address] [place] [address] HDL CHOLESTEROL, NF 41 mg/dL Normal >39 [facility] Comment on above: Order Comment: Jessi chen Type: BLOOD SPECIMEN Ordering Facility: [facility] Address: [address] [place] [address] Result Comment: 40-5 9 mg/dL, Acceptable >59 mg/dL, High: Negative risk factor for coronary heart disease <40 mg/dL, Low: Positive risk factor for coronary heart disease Performed By: #### 5 7021-8 #### [facility] [id number] [address] [place] [address] LDL CHOLESTEROL, NF 47 mg/dL Normal <100 [facility] Comment on above: Order Comment: Jessi chen Type: BLOOD SPECIMEN Ordering Facility: [facility] Address: [address] [place] [address] Result Comment: <100 mg/dL, Optimal 100-129 mg/dL, Near optimal/above optimal 130-159 mg/dL, Borderline high 160-189 mg/dL, High >189 mg/dL, Very high Secondary prevention optimal LDL Cholesterol levels are recommended to be < 70 mg/dL Performed By: #### 5 7021-8 #### [facility] [id number] [address] [place] [address] LDL/HDL RATIO, NF 1.15 mg/dL Normal <2.54 [facility] Comment on above: Order Comment: Jessi chen Type: BLOOD SPECIMEN Ordering Facility: [facility] Address: [address] [place] [address] Result Comment: Mehrdad bermudez: 1. National Cholesterol Education Program ATP III Guideline At-A-Glance Quick Desk Reference: National Heart, Lung, and Blood Mission. National Institutes of Health. 2001: NIH Publication No. 01-3305. 2. An International Atherosclerosis Society position paper: global recommendations for the management of dyslipidemia: executive summary, Atherosclerosis. 2014: 232(2):410-413. Performed By: #### 5 7021-8 #### [facility] CLIA [id number] [address] [place] [address] [place] NON HDL CHOL, NF 80 mg/dL Normal <130 [facility] Comment on above: Order Comment: Jessi chen Type: BLOOD SPECIMEN Ordering Facility: [facility] Address: [address] [place] [address] Result Comment: <130 mg/dL, Optimal 130-159 mg/dL, Near optimal/above optimal 160-189 mg/dL, Borderline high 190-219 mg/dL, High >219 mg/dL, Very high Secondary prevention optimal non HDL Cholesterol levels are recommended to be <100 mg/dL Performed By: #### 5 7021-8 #### [facility] CLIA [id number] [address] [place] [address] T CHOL/HDL RATIO NF 2.95 mg/dL Normal <5.10 [facility] Comment on above: Order Comment: Jessi chen Type: BLOOD SPECIMEN Ordering Facility: [facility] Address: [address] [place] [address] Performed By: #### 5 7021-8 #### [facility] CLIA [id number] [address] [place] [address] [place] TRIGLYCERIDES, NF 166 mg/dL High <150 [facility] Comment on above: Order Comment: Jessi chen Type: BLOOD SPECIMEN Ordering Facility: [facility] Address: [address] [place] [address] Result Comment: <150 mg/dL, Normal 150-199 mg/dL, Borderline high 200-499 mg/dL, High >499 mg/dL, Very high Performed By: #### 5 7021-8 #### [facility] CLIA [id number] [address] [place] [address] [place] VLDL CHOLESTEROL, NF 33 mg/dL High <30 [facility] Comment on above: Order Comment: Speci men Type: BLOOD SPECIMEN Ordering Facility: [facility] Address: [address] [place] [address] Performed By: #### 5 7021-8 #### [facility] CLIA [id number] [address] [place] [address] [place] Magnesium SerPl-mCncon 04-16 Magnesium [Mass/Vol] 1.8 mg/dL Normal 1.7-2.3 [facility] Comment on above: Order Comment: Speci men Type: BLOOD SPECIMEN Ordering Facility: [facility] Address: [address] [place] [address] Performed By: #### 5 7021-8 #### [facility] CLIA [id number] [address] [place] [address] [place] PSA SerPl-mCncon 04-16-2024 Prostate specific Ag [Mass/Vol] 0.17 ng/mL Normal <2.60 [facility] Comment on above: Order Comment: Speci men Type: BLOOD SPECIMEN Ordering Facility: [facility] Address: [address] [place] [address] Result Comment: Tota l PSA test methodology used is the Electrochemiluminescence Immunoassay by [employer]. Total PSA values by differing methodologies cannot be interchanged. Performed By: #### 5 7021-8 #### [facility] CLIA [id number] [address] [place] [address] [place] Urinalysis complete panel (U )on 04-16-2024 Bacteria LM.HPF (Urine sed) [#/Area] Negative Normal Negative [facility] Comment on above: Order Comment: Speci men Type: URINE SPECIMEN Ordering Facility: [facility] Address: [address] [place] [address] Performed By: #### 2 4356-8 #### [facility] CLIA [id number] [address] [place] [address] [place] Bilirubin Ql (U) Negative Normal Negative [facility] Comment on above: Order Comment: Speci men Type: URINE SPECIMEN Ordering Facility: [facility] Address: [address] [place] [address] Performed By: #### 2 4356-8 #### [facility] CLIA [id number] [address] [place] [address] [place] Clarity (Unsp spec) Clear Normal Clear [facility] Comment on above: Order Comment: Speci men Type: URINE SPECIMEN Ordering Facility: [facility] Address: [address] [place] [address] Performed By: #### 2 4356-8 #### [facility] CLIA [id number] [address] [place] [address] [place] Color (U) Yellow Normal Yellow [facility] Comment on above: Order Comment: Speci men Type: URINE SPECIMEN Ordering Facility: [facility] Address: [address] [place] [address] Performed By: #### 2 4356-8 #### [facility] CLIA [id number] [address] [place] [address] [place] Epithelial cells LM.HPF (Urine sed) [#/Area] None Seen Normal [facility] Comment on above: Order Comment: Speci men Type: URINE SPECIMEN Ordering Facility: [facility] Address: [address] [place] [address] Performed By: #### 2 4356-8 #### [facility] CLIA [id number] [address] [place] [address] [place] Glucose Test strip (U) [Mass/Vol] 3+ Abnormal Negative [facility] Comment on above: Order Comment: Speci men Type: URINE SPECIMEN Ordering Facility: [facility] Address: [address] [place] [address] Performed By: #### 2 4356-8 #### [facility] CLIA [id number] [address] [place] [address] [place] Hemoglobin Ql (U) Negative Normal Negative [facility] Comment on above: Order Comment: Speci men Type: URINE SPECIMEN Ordering Facility: [facility] Address: [address] [place] [address] Performed By: #### 2 4356-8 #### [facility] CLIA [id number] [address] [place] [address] [place] Hyaline casts (Urine sed) [#/Area] 0 /[LPF] Normal 0 /LPF [facility] Comment on above: Order Comment: Speci men Type: URINE SPECIMEN Ordering Facility: [facility] Address: [address] [place] [address] Performed By: #### 2 4356-8 #### [facility] CLIA [id number] [address] [place] [address] [place] Ketones Ql (U) Trace Abnormal Negative [facility] Comment on above: Order Comment: Speci men Type: URINE SPECIMEN Ordering Facility: [facility] Address: [address] [place] [address] Performed By: #### 2 4356-8 #### [facility] CLIA [id number] [address] [place] [address] [place] Leukocyte esterase Test strip Ql (U) Negative Normal Negative [facility] Comment on above: Order Comment: Speci men Type: URINE SPECIMEN Ordering Facility: [facility] Address: [address] [place] [address] Performed By: #### 2 4356-8 #### [facility] CLIA [id number] [address] [place] [address] [place] Nitrite Ql (U) Negative Normal Negative [facility] Comment on above: Order Comment: Speci men Type: URINE SPECIMEN Ordering Facility: [facility] Address: [address] [place] [address] Performed By: #### 2 4356-8 #### [facility] CLIA [id number] [address] [place] [address] [place] pH (U) 6.0 [pH] Normal <8.5 [facility] Comment on above: Order Comment: Speci men Type: URINE SPECIMEN Ordering Facility: [facility] Address: [address] [place] [address] Performed By: #### 2 4356-8 #### [facility] CLIA [id number] [address] [place] [address] [place] Protein (U) [Mass/Vol] Trace Abnormal Negative [facility] Comment on above: Order Comment: Speci men Type: URINE SPECIMEN Ordering Facility: [facility] Address: [address] [place] [address] Performed By: #### 2 4356-8 #### [facility] CLIA [id number] [address] [place] [address] [place] RBC LM.HPF (Urine sed) [#/Area] 0-2 /HPF Normal 0-2 /HPF [facility] Comment on above: Order Comment: Speci men Type: URINE SPECIMEN Ordering Facility: [facility] Address: [address] [place] [address] Performed By: #### 2 4356-8 #### [facility] CLIA [id number] [address] [place] [address] [place] Specific gravity (U) [Rel density] 1.032 High 1.005-1.030 [facility] Comment on above: Order Comment: Speci men Type: URINE SPECIMEN Ordering Facility: [facility] Address: [address] [place] [address] Performed By: #### 2 4356-8 #### [facility] CLIA [id number] [address] [place] [address] [place] Urobilinogen Ql (U) 0.2 EU/dL Normal 0.2-1.0 EU/dL [facility] Comment on above: Order Comment: Speci men Type: URINE SPECIMEN Ordering Facility: [facility] Address: [address] [place] [address] Performed By: #### 2 4356-8 #### [facility] CLIA [id number] [address] [place] [address] [place] WBC LM.HPF (Urine sed) [#/Area] 0-5 /HPF Normal 0-5 /HPF [facility] Comment on above: Order Comment: Speci men Type: URINE SPECIMEN Ordering Facility: [facility] Address: [address] [place] [address] Performed By: #### 2 4356-8 #### [facility] CLIA [id number] [address] [place] [address] [place] Vit B12 [facility] 07-30-2 024 Cobalamin (Vitamin B12) [Mass/Vol] 465 pg/mL Normal 232-1245 [facility] Comment on above: Order Comment: Speci men Type: BLOOD SPECIMEN Ordering Facility: [facility] Address: [address] [place] [address] Performed By: #### 5 7021-8 #### [facility] CLIA [id number] [address] [place] [address] [place] Re-Evaluation - PT (1)on Re-Evaluation - PT (1) [facility] [address] [place] [address] [address] [place] [address] / REEVALUATION / MEDICARE RECERTIFICATION PHYSICAL THERAPY MR#: [id number] Acct: [id number] Name: RONNIE YARBROUGH Rep #: [id number] : 1950 73 From: Chuck Veliz DPT Referring DrAniceto: LEO Rivera Status:REG RC R Insurance: [employer] MCR SELF PAY INSURANCE Re-Evaluation Intro: Roopa Rivera, TARA-C, It has been my pleasure to treat [...] focus on balance and stability exercises in [facility]. Work on safety and dynamic movements [...] do not hesitate to contact me at [phone] by phone or if you have questions or concerns regarding this new plan of care! Sincerely, Chuck Veliz, DPT 03/28/24 0729 CC: LEO Rivera; Dr. Ovidio Vincent MD CLS Signed For Medicare only, by signing this I certify the plan of care. Physicians Signature Date Normal [facility] EYE EXAM ESTABLISHED PTon GENE result received by fax from Dr. Juve Reza. Exam date 03/26/24. Result scanned and Health Maintenance updated. [facility] CNCOon 03-14-[address] [facility] HEMOGLOBIN A1C (EXTERNAL)on 08-04-2023 HbA1c (Bld) [Mass fraction] 7.1 % Abnormal 0 - 5.7 % [facility] CBC W Auto Differential pane l (Bld)on 08-01-2023 Basophils (Bld) [#/Vol] <0.11 k/uL [facility] Basophils/100 WBC (Bld) 0.0 % [facility] Differential cell count method Nom (Bld) Auto [facility] Eosinophils (Bld) [#/Vol] 0.03 10*3/uL <0.46 k/uL [facility] Eosinophils/100 WBC (Bld) 0.4 % [facility] Erythrocyte distribution width (RBC) [Ratio] 16.3 % High 11.5 - 15.0 % [facility] Hematocrit (Bld) [Volume fraction] 48.9 % 39.0 - 51.0 % [facility] Hemoglobin (Bld) [Mass/Vol] 15.3 g/dL 13.0 - 17.0 g/dL [facility] Immature granulocytes (Bld) [#/Vol] 0.04 10*3/uL <0.10 k/uL [facility] Immature granulocytes/100 WBC (Bld) 0.6 % [facility] Lymphocytes (Bld) [#/Vol] 1.03 10*3/uL 1.00 - 4.00 k/uL [facility] Lymphocytes/100 WBC (Bld) 14.8 % [facility] MCH (RBC) [Entitic mass] 26.6 pg 26.0 - 34.0 pg [facility] MCHC (RBC) [Mass/Vol] 31.3 g/dL 30.5 - 36.0 g/dL [facility] MCV (RBC) [Entitic vol] 85.0 fL 80.0 - 100.0 fL [facility] Monocytes (Bld) [#/Vol] 0.42 10*3/uL <0.87 k/uL [facility] Monocytes/100 WBC (Bld) 6.0 % [facility] Neutrophils (Bld) [#/Vol] 5.43 10*3/uL 1.45 - 7.50 k/uL [facility] Neutrophils/100 WBC (Bld) 78.2 % [facility] Nucleated RBC (Bld) [#/Vol] <0.01 k/uL [facility] Nucleated RBC/100 WBC (Bld) [Ratio] 0.0 /100 WBC [facility] Platelet mean volume (Bld) [Entitic vol] 10.4 fL 9.0 - 12.7 fL [facility] Platelets (Bld) [#/Vol] 198 10*3/uL 150 - 400 k/uL [facility] RBC (Bld) [#/Vol] 5.75 10*6/uL 4.20 - 6.0 0 m/uL [facility] WBC (Bld) [#/Vol] 6.95 10*3/uL 3.70 - 11. 00 k/uL [facility] No Panel InformationOrdered By: Patsy Gamble on 05-02-2023 Thyroid Stimulating Hormone (TSH) 3.03 uIU/mL 0.358-3.74 [facility] HbA1c (Bld)on 03-30-2023 Average glucose Estimated from glycated hemoglobin (Bld) [Mass/Vol] 171 mg/dL [facility] HbA1c (Bld) [Mass fraction] 7.6 % High 4.3 - 5.6 % [facility] Basic metabolic 2000 panelon 02-17-2023 Anion gap [Moles/Vol] 14 mmol/L 9 - 18 mmol/L [facility] Calcium [Mass/Vol] 9.4 mg/dL 8.5 - 10. 2 mg/dL [facility] Chloride [Moles/Vol] 99 mmol/L 97 - 10 5 mmol/L [facility] CO2 [Moles/Vol] 27 mmol/L 22 - 30 mmol/L [facility] Creatinine [Mass/Vol] 1.03 mg/dL 0.73 - 1.22 mg/dL [facility] Estimated Glomerular Filtration Rate 78 mL/min/1.73m >=60 mL/min/1.73m [facility] Glucose [Mass/Vol] 140 mg/dL High 74 - 99 mg/dL [facility] Potassium [Moles/Vol] 4.5 mmol/L 3.7 - 5.1 mmol/L [facility] Sodium [Moles/Vol] 140 mmol/L 136 - 144 mmol/L [facility] Urea nitrogen [Mass/Vol] 26 mg/dL High 9 - 24 mg/dL [facility] NT PRO BNPon 02-17-2023 Natriuretic peptide.B prohormone N-Terminal [Mass/Vol] 149 pg/mL High <125 pg/mL [facility] US LEG VEIN DVT ALESSANDRA VAS LABo n 02-17-2023 [facility] Absolute lymphocyte countOrd ered By: Dr. Coburn on 02-10-2023 Lymphocytes Auto (Unsp spec) [#/Vol] 0.64 10*3/uL 0.83-4.51 [facility] Basophil percentageOrdered B y: Dr. Coburn on 02-10-2023 Basophils/100 WBC (Bld) 0.3 % 0-1 [facility] Chloride [Moles/Vol] 106 mmol/L 98-107 [facility] Eosinophils/100 WBC (Bld) 0.8 % 0-5 [facility] Glucose [Mass/Vol] 148 mg/dL 74-106 [facility] Comment on above: Fasting Glucose resu lt greater than or equal to 126 mg/dL suggests DIABETES MELLITUS per A.D.A. criteria. Neutrophils (Bld) [#/Vol] 3.0 10*3/uL 2.0-7.7 [facility] Neutrophils/100 WBC (Bld) 73.8 % 47-70 [facility] Potassium [Moles/Vol] 4.4 mmol/L 3.5-5.1 [facility] Sodium [Moles/Vol] 141 mmol/L 136-145 [facility] WBC (Bld) [#/Vol] 4.0 10*3/uL 4.4-11.0 [facility] Blood erythrocytes count (nu mber/volume)Ordered By: Dr. Coburn on 02-10-2023 RBC (Bld) [#/Vol] 4.97 10*6/uL 4.6-6.2 [facility] Blood hemoglobin measurement (mass/volume)Ordered By: Dr. Coburn on 02-10-2023 Hemoglobin (Bld) [Mass/Vol] 13.9 g/dL 13.0-16.5 [facility] Blood lymphocytes/100 leukoc ytesOrdered By: Dr. Coburn on 02-10-2023 Lymphocytes/100 WBC (Bld) 16.0 % 19-41 [facility] Blood monocytes/100 leukocyt esOrdered By: Dr. Coburn on 02-10-2023 Monocytes/100 WBC (Bld) 8.3 % 0-10 [facility] Blood platelet mean volumeOr dered By: Dr. Coburn on 02-10-2023 Platelet mean volume (Bld) [Entitic vol] 9.9 fL 6.2-12.0 [facility] Determination of erythrocyte mean corpuscular volume (MCV)Ordered By: Dr. Coburn on 02-10-2023 MCV (RBC) [Entitic vol] 88.5 fL 80-94 [facility] Hematocrit Auto (Bld) [Volum e fraction]Ordered By: Dr. Coburn on 02-10-2023 Hematocrit (Bld) [Volume fraction] 44.0 % 40-54 [facility] Laboratory - Chemistry and C hemistry - challengeOrdered By: Dr. Coburn on 02-10-2023 CO2 [Moles/Vol] 28.0 mmol/L 21.0-32.0 [facility] Magnesium [Mass/Vol] 1.5 mg/dL 1.6-2.6 [facility] Natriuretic peptide B (Bld) [Mass/Vol] 106.1 pg/mL 0-100 [facility] Urea nitrogen/Creatinine [Mass ratio] 24.5 mg/mg 10-20 [facility] - Hematology and Cell countsOrdered By: Dr. Coburn on 02-10-2023 Erythrocyte distribution width (RBC) [Entitic vol] 52.9 fL 35.1-43.9 [facility] Erythrocyte distribution width (RBC) [Ratio] 16.4 % 11.6-14.6 [facility] Immature granulocytes/100 WBC (Bld) 0.800 % 0.0-0.9 [facility] Comment on above: IG% - Immature Granu locytes (promyelocytes, myelocytes and metamyelocytes) > 1% indicates that a LEFT SHIFT is Present. MCH (RBC) [Entitic mass] 28.0 pg 27.0-32.0 [facility] Nucleated RBC/100 WBC (Bld) [Ratio] 0 % 0-5 [facility] MCHC Auto (RBC) [Mass/Vol]Or dered By: Dr. Coburn on 02-10-2023 MCHC (RBC) [Mass/Vol] 31.6 g/dL 32-36 [facility] No Panel InformationOrdered By: Dr. Coburn on 02-10-2023 Troponin I High Sensitivity 22 pg/mL 3.0-78.0 [facility] Comment on above: Please Note: New Td t Units and Gender Specific Reference Ranges. For more information see Policy Stat Procedure [place] High Sensitivity Troponin (TNIH) and attachments. Estimated Creatinine Clearance Calc 63.92 ml/min [facility] Estimated GFR (MDRD) Amer 88 mL/min >60 [facility] Comment on above: GFR Calc Estimated GFR (MDRD) Non-Af Amer 73 mL/min >60 [facility] Comment on above: Non- GFR Calc Platelets bldOrdered By: Dr. Coburn on 02-10-2023 Platelets (Bld) [#/Vol] 184 10*3/uL 150-450 [facility] Serum or plasma calcium ernst urement (mass/volume)Ordered By: Dr. Coburn on 02-10-2023 Calcium [Mass/Vol] 8.9 mg/dL 8.5-10.1 [facility] Serum or plasma creatinine m easurement (mass/volume)Ordered By: Dr. Coburn on 02-10-2023 Creatinine [Mass/Vol] 1.06 mg/dL 0.70-1.30 [facility] Comment on above: The validity of the calculated GFR & GFRAA in patients over 70 years has not been determined. Clinical correlation is essential. Serum or plasma urea nitroge n measurement (mass/volume)Ordered By: Dr. Coburn on 02-10-2023 Urea nitrogen [Mass/Vol] 26 mg/dL 7-18 [facility] Thin prep Papanicolaou smear with manual screeningOrdered By: Dr. Coburn on 02-10-2023 Thin prep Papanicolaou smear with manual screening 7 5-15 [facility] Glucose Glucometer (BldC) [M ass/Vol]Ordered By: Dr. Davila on 01-14-2023 Glucose [Mass/Vol] 136 mg/dL 74-106 [facility] Comment on above: MANAGEMENT OF PATIEN T CARE PER NURSING PROTOCOL Absolute lymphocyte countOrd ered By: Dr. Davila on 01-13-2023 Lymphocytes Auto (Unsp spec) [#/Vol] 0.75 10*3/uL 0.83-4.51 [facility] Basophil percentageOrdered B y: Dr. Davila on 01-13-2023 Basophils/100 WBC (Bld) 0.5 % 0-1 [facility] Chloride [Moles/Vol] 106 mmol/L 98-107 [facility] Eosinophils/100 WBC (Bld) 0.7 % 0-5 [facility] Glucose [Mass/Vol] 122 mg/dL 74-106 [facility] Comment on above: Fasting Glucose resu lt from 100 to 125 mg/dL suggests IMPAIRED HOMEOSTASIS per A.D.A. criteria. Neutrophils (Bld) [#/Vol] 3.0 10*3/uL 2.0-7.7 [facility] Neutrophils/100 WBC (Bld) 70.8 % 47-70 [facility] Potassium [Moles/Vol] 4.8 mmol/L 3.5-5.1 [facility] Sodium [Moles/Vol] 137 mmol/L 136-145 [facility] WBC (Bld) [#/Vol] 4.3 10*3/uL 4.4-11.0 [facility] Blood erythrocytes count (nu mber/volume)Ordered By: Dr. Davila on 01-13-2023 RBC (Bld) [#/Vol] 4.91 10*6/uL 4.6-6.2 [facility] Blood hemoglobin measurement (mass/volume)Ordered By: Dr. Davila on 01-13-2023 Hemoglobin (Bld) [Mass/Vol] 13.9 g/dL 13.0-16.5 [facility] Blood lymphocytes/100 leukoc ytesOrdered By: Dr. Davila on 01-13-2023 Lymphocytes/100 WBC (Bld) 17.5 % 19-41 [facility] Blood monocytes/100 leukocyt esOrdered By: Dr. Davila on 01-13-2023 Monocytes/100 WBC (Bld) 8.9 % 0-10 [facility] Blood platelet mean volumeOr dered By: Dr. Davila on 01-13-2023 Platelet mean volume (Bld) [Entitic vol] 9.7 fL 6.2-12.0 [facility] Determination of erythrocyte mean corpuscular volume (MCV)Ordered By: Dr. Davila on 01-13-2023 MCV (RBC) [Entitic vol] 88.2 fL 80-94 [facility] Hematocrit Auto (Bld) [Volum e fraction]Ordered By: Dr. Davila on 01-13-2023 Hematocrit (Bld) [Volume fraction] 43.3 % 40-54 [facility] Laboratory - Chemistry and C hemistry - challengeOrdered By: Dr. Davila on 01-13-2023 CO2 [Moles/Vol] 26.0 mmol/L 21.0-32.0 [facility] Urea nitrogen/Creatinine [Mass ratio] 19.3 mg/mg 10-20 [facility] - Hematology and Cell countsOrdered By: Dr. Davila on 01-13-2023 Erythrocyte distribution width (RBC) [Entitic vol] 56.4 fL 35.1-43.9 [facility] Erythrocyte distribution width (RBC) [Ratio] 17.6 % 11.6-14.6 [facility] Immature granulocytes/100 WBC (Bld) 1.600 % 0.0-0.9 [facility] Comment on above: IG% - Immature Granu locytes (promyelocytes, myelocytes and metamyelocytes) > 1% indicates that a LEFT SHIFT is Present. MCH (RBC) [Entitic mass] 28.3 pg 27.0-32.0 [facility] Nucleated RBC/100 WBC (Bld) [Ratio] 0 % 0-5 [facility] MCHC Auto (RBC) [Mass/Vol]Or dered By: Dr. Davila on 01-13-2023 MCHC (RBC) [Mass/Vol] 32.1 g/dL 32-36 [facility] No Panel InformationOrdered By: Dr. Davila on 01-13-2023 Estimated Creatinine Clearance Calc 69.14 ml/min [facility] Estimated GFR (MDRD) Amer 96 mL/min >60 [facility] Comment on above: GFR Calc Estimated GFR (MDRD) Non-Af Amer 80 mL/min >60 [facility] Comment on above: Non- GFR Calc Platelets bldOrdered By: Dr. Davila on 01-13-2023 Platelets (Bld) [#/Vol] 141 10*3/uL 150-450 [facility] Serum or plasma calcium ernst urement (mass/volume)Ordered By: Dr. Davila on 01-13-2023 Calcium [Mass/Vol] 8.9 mg/dL 8.5-10.1 [facility] Serum or plasma creatinine m easurement (mass/volume)Ordered By: Dr. Davila on 01-13-2023 Creatinine [Mass/Vol] 0.98 mg/dL 0.70-1.30 [facility] Comment on above: The validity of the calculated GFR & GFRAA in patients over 70 years has not been determined. Clinical correlation is essential. Serum or plasma urea nitroge n measurement (mass/volume)Ordered By: Dr. Davila on 01-13-2023 Urea nitrogen [Mass/Vol] 19 mg/dL 7-18 [facility] Thin prep Papanicolaou smear with manual screeningOrdered By: Dr. Davila on 01-13-2023 Thin prep Papanicolaou smear with manual screening 5 5-15 [facility] COVID-19 virus antigen assay Ordered By: Shabbir Davila on 01-09-2023 SARS-CoV-2 (COVID-19) Ag IA.rapid Ql (Resp) [facility] COVID-19 virus antigen assay Ordered By: Dr. Davila on 01-09-2023 SARS-CoV-2 (COVID-19) Ag IA.rapid Ql (Resp) [facility] No Panel Informationon 12-19 [facility] VITAMIN D 25 HYDROXYon 12-19 25-hydroxyvitamin D3 [Mass/Vol] 39.0 ng/mL 31.0 - 80.0 ng/mL [facility] XR BONE SURVEY ROUTINEon XR BONE SURVEY [...] Severe LEFT glenohumeral joint space narrowing with [id number] contact. Bilateral widening of the scapholunate interval [...] obtained for further evaluation by clinical discretion. [employer] Operator: ROBERTA Transcribe Date/Time: Nov 02 2022 8:37A Dictated by : RIMA HUGHES DO This examination was interpreted and the report reviewed and electronically signed by: RIMA HUGHES DO on Nov 02 2022 9:18AM EST [id number] [facility] XR Lumbar spine AP and Later al and obliqueon 10-05-2022 IMPRESSION: Postsurg ical and degenerative changes, as described. 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 [employer] Ferryboat Operator: ROBERTA Transcribe Date/Time: Oct 05 2022 8:31A [...] associated marginal spurring. DIVISION OF RADIOLOGY Provider, [facility] - 10/05/2022 * * *Final Report* [...] indeterminant compression of the T1 vertebral body. [employer] Ferryboat Operator: PSCB Transcribe Date/Time: Oct 05 2022 8:31A Dictated by : GATITO AGUILAR MD This examination was interpreted and the report reviewed and electronically signed by: GATITO AGUILAR MD on Oct 05 2022 8:36AM EST [facility] XR Lumbar spine AP and Later al and obliqueOrdered By: [facility] Provider on 10-05-2022 [facility] XR Lumbar spine AP and Later al and obliqueon 10-03-2022 Radiology Study observation (narrative) [facility] Absolute lymphocyte counton 12-28-2021 Lymphocytes Auto (Unsp spec) [#/Vol] 0.43 10*3/uL 0.83-4.51 [facility] Work Phone: Basophil percentageon 2021 Basophils/100 WBC (Bld) 0.2 % 0-1 [facility] Work Phone: Bilirubin [Mass/Vol] 0.50 mg/dL 0.20-1.00 [facility] Work Phone: Comment on above: For patients on eltr ombopag therapy, use of Dimension [place] TBIL is not recommended. Chloride [Moles/Vol] 101 mmol/L 98-107 [facility] Work Phone: Eosinophils/100 WBC (Bld) 0.4 % 0-5 [facility] Work Phone: [phone] Glucose [Mass/Vol] 146 mg/dL 74-106 [facility] Work Phone: [phone] Comment on above: Fasting Glucose resu lt greater than or equal to 126 mg/dL suggests DIABETES MELLITUS per A.D.A. criteria. Neutrophils (Bld) [#/Vol] 4.5 10*3/uL 2.0-7.7 [facility] Work Phone: [phone] Neutrophils/100 WBC (Bld) 83.1 % 47-70 [facility] Work Phone: [phone] Potassium [Moles/Vol] 3.8 mmol/L 3.5-5.1 [facility] Work Phone: Protein [Mass/Vol] 6.5 g/dL 6.4-8.2 [facility] Work Phone: [phone] Sodium [Moles/Vol] 137 mmol/L 136-145 [facility] Work Phone: WBC (Bld) [#/Vol] 5.4 10*3/uL 4.4-11.0 [facility] Work Phone: [phone] Blood erythrocytes count (nu mber/volume)on 12-28-2021 RBC (Bld) [#/Vol] 4.86 10*6/uL 4.6-6.2 [facility] Work Phone: [phone] Blood hemoglobin measurement (mass/volume)on 12-28-2021 Hemoglobin (Bld) [Mass/Vol] 14.3 g/dL 13.0-16.5 [facility] Work Phone: Blood lymphocytes/100 leukoc yteson 12-28-2021 Lymphocytes/100 WBC (Bld) 8.0 % 19-41 [facility] Work Phone: [phone] Blood manual differential co mment interpretation (narrative result)on 12-28-2021 Manual differential comment Abel (Bld) [Interp] SCANNED [facility] Work Phone: [phone] Comment on above: LYMPHOPENIA NOTED Blood monocytes/100 leukocyt eson 12-28-2021 Monocytes/100 WBC (Bld) 7.6 % 0-10 [facility] Work Phone: [phone] Blood platelet mean volumeon 12-28-2021 Platelet mean volume (Bld) [Entitic vol] 9.9 fL 6.2-12.0 [facility] Work Phone: [phone] Determination of erythrocyte mean corpuscular volume (MCV)on 12-28-2021 MCV (RBC) [Entitic vol] 93.2 fL 80-94 [facility] Work Phone: [phone] Hematocrit Auto (Bld) [Volum e fraction]on 12-28-2021 Hematocrit (Bld) [Volume fraction] 45.3 % 40-54 [facility] Work Phone: [phone] Laboratory - Chemistry and C hemistry - challengeon 12-28-2021 ALP [Catalytic activity/Vol] 71 U/L 45-117 [facility] Work Phone: ALT [Catalytic activity/Vol] 20 U/L 16-61 [facility] Work Phone: [phone] CO2 [Moles/Vol] 30.0 mmol/L 21.0-32.0 [facility] Work Phone: [phone] Globulin (S) [Mass/Vol] 3.0 g/dL 2.2-4.2 [facility] Work Phone: [phone] Urea nitrogen/Creatinine [Mass ratio] 19.3 mg/mg 10-20 [facility] Work Phone: Laboratory - Hematology and Cell countson 12-28-2021 Erythrocyte distribution width (RBC) [Entitic vol] 53.0 fL 35.1-43.9 [facility] Work Phone: [phone] Erythrocyte distribution width (RBC) [Ratio] 15.5 % 11.6-14.6 [facility] Work Phone: [phone] Immature granulocytes/100 WBC (Bld) 0.700 % 0.0-0.9 [facility] Work Phone: Comment on above: IG% - Immature Granu locytes (promyelocytes, myelocytes and metamyelocytes) > 1% indicates that a LEFT SHIFT is Present. MCH (RBC) [Entitic mass] 29.4 pg 27.0-32.0 [facility] Work Phone: Nucleated RBC/100 WBC (Bld) [Ratio] 0 % 0-5 [facility] Work Phone: MCHC Auto (RBC) [Mass/Vol]on 12-28-2021 MCHC (RBC) [Mass/Vol] 31.6 g/dL 32-36 [facility] Work Phone: No Panel Informationon 12-28 Estimated GFR (MDRD) Amer 67 mL/min >60 [facility] Work Phone: Comment on above: GFR Calc Estimated GFR (MDRD) Non-Af Amer 55 mL/min >60 [facility] Work Phone: Comment on above: Non- GFR Calc Platelets bldon 12-28-2021 Platelets (Bld) [#/Vol] 210 10*3/uL 150-450 [facility] Work Phone: Serum or plasma albumin ernst urement (mass/volume)on 12-28-2021 Albumin [Mass/Vol] 3.5 g/dL 3.2-5.0 [facility] Work Phone: Serum or plasma albumin/glob ulin mass ratioon 12-28-2021 Albumin/Globulin [Mass ratio] 1.2 {ratio} 0.9-2.4 [facility] Work Phone: Serum or plasma calcium ernst urement (mass/volume)on 12-28-2021 Calcium [Mass/Vol] 8.6 mg/dL 8.5-10.1 [facility] Work Phone: Serum or plasma creatinine m easurement (mass/volume)on 12-28-2021 Creatinine [Mass/Vol] 1.35 mg/dL 0.70-1.30 [facility] Work Phone: Comment on above: The validity of the calculated GFR & GFRAA in patients over 70 years has not been determined. Clinical correlation is essential. Serum or plasma urea nitroge n measurement (mass/volume)on 12-28-2021 Urea nitrogen [Mass/Vol] 26 mg/dL 7-18 [facility] Work Phone: Thin prep Papanicolaou smear with manual screeningon 12-28-2021 Thin prep Papanicolaou smear with manual screening 12 U/L 15-37 [facility] Work Phone: [phone] Thin prep Papanicolaou smear with manual screening 6 5-15 [facility] Work Phone: Absolute lymphocyte counton 10-14-2021 Lymphocytes Auto (Unsp spec) [#/Vol] 0.59 10*3/uL 0.83-4.51 [facility] Work Phone: Basophil percentageon 2021 Basophils/100 WBC (Bld) 0.4 % 0-1 [facility] Work Phone: Bilirubin [Mass/Vol] 0.70 mg/dL 0.20-1.00 [facility] Work Phone: Comment on above: For patients on eltr ombopag therapy, use of Dimension [place] TBIL is not recommended. Chloride [Moles/Vol] 102 mmol/L 98-107 [facility] Work Phone: Eosinophils/100 WBC (Bld) 0.6 % 0-5 [facility] Work Phone: Glucose [Mass/Vol] 120 mg/dL 74-106 [facility] Work Phone: Comment on above: Fasting Glucose resu lt from 100 to 125 mg/dL suggests IMPAIRED HOMEOSTASIS per A.D.A. criteria. Neutrophils (Bld) [#/Vol] 3.9 10*3/uL 2.0-7.7 [facility] Work Phone: [phone] Neutrophils/100 WBC (Bld) 77.2 % 47-70 [facility] Work Phone: [phone] Potassium [Moles/Vol] 4.3 mmol/L 3.5-5.1 [facility] Work Phone: Protein [Mass/Vol] 6.7 g/dL 6.4-8.2 [facility] Work Phone: [phone] Sodium [Moles/Vol] 136 mmol/L 136-145 [facility] Work Phone: WBC (Bld) [#/Vol] 5.0 10*3/uL 4.4-11.0 [facility] Work Phone: Blood erythrocytes count (nu mber/volume)on 10-14-2021 RBC (Bld) [#/Vol] 5.32 10*6/uL 4.6-6.2 [facility] Work Phone: [phone] Blood hemoglobin measurement (mass/volume)on 10-14-2021 Hemoglobin (Bld) [Mass/Vol] 15.7 g/dL 13.0-16.5 [facility] Work Phone: Blood lymphocytes/100 leukoc yteson 10-14-2021 Lymphocytes/100 WBC (Bld) 11.8 % 19-41 [facility] Work Phone: Blood monocytes/100 leukocyt eson 10-14-2021 Monocytes/100 WBC (Bld) 9.4 % 0-10 [facility] Work Phone: Blood platelet mean volumeon 10-14-2021 Platelet mean volume (Bld) [Entitic vol] 9.5 fL 6.2-12.0 [facility] Work Phone: [phone] Determination of erythrocyte mean corpuscular volume (MCV)on 10-14-2021 MCV (RBC) [Entitic vol] 91.5 fL 80-94 [facility] Work Phone: Hematocrit Auto (Bld) [Volum e fraction]on 10-14-2021 Hematocrit (Bld) [Volume fraction] 48.7 % 40-54 [facility] Work Phone: [phone] Laboratory - Chemistry and C hemistry - challengeon 10-14-2021 ALP [Catalytic activity/Vol] 64 U/L 45-117 [facility] Work Phone: ALT [Catalytic activity/Vol] 21 U/L 16-61 [facility] Work Phone: [phone] CO2 [Moles/Vol] 25.0 mmol/L 21.0-32.0 [facility] Work Phone: [phone] Globulin (S) [Mass/Vol] 3.2 g/dL 2.2-4.2 [facility] Work Phone: [phone] Urea nitrogen/Creatinine [Mass ratio] 21.5 mg/mg 10-20 [facility] Work Phone: [phone] Laboratory - Hematology and Cell countson 10-14-2021 Erythrocyte distribution width (RBC) [Entitic vol] 52.2 fL 35.1-43.9 [facility] Work Phone: [phone] Erythrocyte distribution width (RBC) [Ratio] 15.5 % 11.6-14.6 [facility] Work Phone: [phone] Immature granulocytes/100 WBC (Bld) 0.600 % 0.0-0.9 [facility] Work Phone: Comment on above: IG% - Immature Granu locytes (promyelocytes, myelocytes and metamyelocytes) > 1% indicates that a LEFT SHIFT is Present. MCH (RBC) [Entitic mass] 29.5 pg 27.0-32.0 [facility] Work Phone: [phone] Nucleated RBC/100 WBC (Bld) [Ratio] 0 % 0-5 [facility] Work Phone: [phone] MCHC Auto (RBC) [Mass/Vol]on 10-14-2021 MCHC (RBC) [Mass/Vol] 32.2 g/dL 32-36 [facility] Work Phone: [phone] No Panel Informationon 10-14 Estimated GFR (MDRD) Amer 76 mL/min >60 [facility] Work Phone: Comment on above: GFR Calc Estimated GFR (MDRD) Non-Af Amer 63 mL/min >60 [facility] Work Phone: Comment on above: Non- GFR Calc Platelets bldon 10-14-2021 Platelets (Bld) [#/Vol] 206 10*3/uL 150-450 [facility] Work Phone: Serum or plasma albumin ernst urement (mass/volume)on 10-14-2021 Albumin [Mass/Vol] 3.5 g/dL 3.2-5.0 [facility] Work Phone: Serum or plasma albumin/glob ulin mass ratioon 10-14-2021 Albumin/Globulin [Mass ratio] 1.1 {ratio} 0.9-2.4 [facility] Work Phone: Serum or plasma calcium ernst urement (mass/volume)on 10-14-2021 Calcium [Mass/Vol] 9.1 mg/dL 8.5-10.1 [facility] Work Phone: Serum or plasma creatinine m easurement (mass/volume)on 10-14-2021 Creatinine [Mass/Vol] 1.21 mg/dL 0.70-1.30 [facility] Work Phone: Comment on above: The validity of the calculated GFR & GFRAA in patients over 70 years has not been determined. Clinical correlation is essential. Serum or plasma urea nitroge n measurement (mass/volume)on 10-14-2021 Urea nitrogen [Mass/Vol] 26 mg/dL 7-18 [facility] Work Phone: Thin prep Papanicolaou smear with manual screeningon 10-14-2021 Thin prep Papanicolaou smear with manual screening 13 U/L 15-37 [facility] Work Phone: Thin prep Papanicolaou smear with manual screening 9 5-15 [facility] Work Phone: Vital Signs Date Time Vital Sign Value Performing Clinician Facility 03-04-2025 13:02-0400 Body temperature 97.1 [degF] Dr. Ovidio Vincent MD Work Phone: [phone] [place] [address] 03-04-2025 13:02-0400 Diastolic blood pressure 70 mm[Hg] Dr. Ovidio Vincent MD Work Phone: [phone])543-077476 [place] [address] 03-04-2025 13:02-0400 Heart rate 77 /min Dr. Ovidio Vincent MD Work Phone: 3(767)855-285776 [place] [address] 03-04-2025 13:02-0400 Respiratory rate 16 /min Dr. Ovidio Vincent MD Work Phone: [phone])780-429276 [place] [address] 03-04-2025 13:02-0400 SaO2% (BldA) [Mass fraction] 95 % Dr. Ovidio Vincent MD Work Phone: [phone])446-258576 [place] [address] 03-04-2025 13:02-0400 Systolic blood pressure 138 mm[Hg] Dr. Ovidio Vincent MD Work Phone: 5(667)356-765276 [place] [address] 03-04-2025 12:14-0400 Inhaled oxygen flow rate 4 L/min Dr. Ovidio Vincent MD Work Phone: 4(987)948-047076 [place] [address] 03-04-2025 11:16-0400 Inhaled oxygen concentration 21 % Dr. Ovidio Vincent MD Work Phone: 6(681)998-491576 [place] [address] 03-04-2025 06:44-0400 Body temperature 98.4 [degF] Dr. Ovidio Vincent MD Work Phone: 6(021)711-849576 [place] [address] 03-04-2025 06:44-0400 Diastolic blood pressure 73 mm[Hg] Dr. Ovidio Vincent MD Work Phone: 2(710)605-144576 [place] [address] 03-04-2025 06:44-0400 Heart rate 72 /min Dr. Ovidio Vincent MD Work Phone: 2(501)935-628776 [place] [address] 03-04-2025 06:44-0400 Respiratory rate 16 /min Dr. Ovidio Vincent MD Work Phone: [phone])981-675576 [place] [address] 03-04-2025 06:44-0400 SaO2% (BldA) [Mass fraction] 99 % Dr. Ovidio Vincent MD Work Phone: 3(459)832-585176 [place] [address] 03-04-2025 06:44-0400 Systolic blood pressure 130 mm[Hg] Dr. Ovidio Vincent MD Work Phone: 2(838)940-014876 [place] [address] 03-04-2025 06:14-0400 Body height 177.[address] Ovidio Vincent MD Work Phone: 0(973)758-587276 [place] [address] 03-04-2025 06:14-0400 Body mass index (BMI) [Ratio] 29 kg/m2 Dr. Ovidio Vincent MD Work Phone: 4(623)094-292176 [place] [address] 03-04-2025 06:14-0400 Body weight [address] Ovidio Vincent MD Work Phone: 4(407)257-735776 [place] [address] 02-21-2025 09:53-0400 Body height 175.[address] Ovidio Vincent MD Work Phone: 6(227)921-317176 [place] [address] 02-21-2025 09:53-0400 Body mass index (BMI) [Ratio] 31.6 kg/m2 Dr. Ovidio Vincent MD Work Phone: 7(881)274-763576 [place] [address] 02-21-2025 09:53-0400 Body weight 97.[address] Ovidio Vincent MD Work Phone: 1(297)536-181876 [place] [address] 02-17-2025 08:16-0400 Body mass index (BMI) [Ratio] 31.6 kg/m2 Dr. Ovidio Vincent MD Work Phone: 8(015)959-410876 [place] [address] 02-17-2025 08:16-0400 Body weight 97.[address] Ovidio Vincent MD Work Phone: 6(060)107-860776 [place] [address] 02-17-2025 08:16-0400 Diastolic blood pressure 57 mm[Hg] Dr. Ovidio Vincent MD Work Phone: 6(031)053-249276 [place] [address] 02-17-2025 08:16-0400 Heart rate 66 /min Dr. Ovidio Vincent MD Work Phone: 9(166)231-234476 [place] [address] 02-17-2025 08:16-0400 Respiratory rate 18 /min Dr. Ovidio Vincent MD Work Phone: [facility] 02-17-2025 08:16-0400 Systolic blood pressure 101 mm[Hg] Dr. Ovidio Vincent MD Work Phone: [facility] 12-05-2024 10:30-0400 Body height 175.[address] Ovidio Vincent MD Work Phone: [facility] 12-05-2024 10:30-0400 Body mass index (BMI) [Ratio] 30.9 kg/m2 Dr. Ovidio Vincent MD Work Phone: [facility] 12-05-2024 10:30-0400 Body weight 95.[address] Ovidio Vincent MD Work Phone: [facility] 11-18-2024 07:25-0500 Body mass index (BMI) [Ratio] 30.39 kg/m2 Rebecca Jansen APRN.BACK TENDER PAPER MACHINE Work Phone: [facility] 11-18-2024 07:25-0500 Body weight 95.4 kg Rebecca Jansen APRN.BACK TENDER PAPER MACHINE Work Phone: [facility] 11-18-2024 07:25-0500 Diastolic blood pressure 69 mm[Hg] Rebecca Jansen APRN.BACK TENDER PAPER MACHINE Work Phone: [facility] 11-18-2024 07:25-0500 Heart rate 52 /min Rebecca Jansen APRN.BACK TENDER PAPER MACHINE Work Phone: [facility] 11-18-2024 07:25-0500 Systolic blood pressure 130 mm[Hg] Rebecca Jansen APRN.BACK TENDER PAPER MACHINE Work Phone: [facility] 05-30-2024 09:32-0400 Body height 177.2 cm Ovidio Vincent MD Work Phone: [facility] 05-30-2024 09:32-0400 Body mass index (BMI) [Ratio] 30.64 kg/m2 Ovidio Vincent MD Work Phone: [facility] 05-30-2024 09:32-0400 Body weight 96.16 kg Ovidio Vincent MD Work Phone: [facility] 05-30-2024 09:32-0400 Diastolic blood pressure 66 mm[Hg] Ovidio Vincent MD Work Phone: [facility] 05-30-2024 09:32-0400 Heart rate 89 /min Ovidio Vincent MD Work Phone: [facility] 05-30-2024 09:32-0400 Systolic blood pressure 119 mm[Hg] Ovidio Vincent MD Work Phone: [facility] 05-27-2024 09:45-0400 Body height 175.3 cm Hayde Ward MD Work Phone: [facility] 05-27-2024 09:45-0400 Body mass index (BMI) [Ratio] 31.84 kg/m2 Hayde Ward MD Work Phone: [facility] 05-27-2024 09:45-0400 Body weight 97.8 kg Hayde Ward MD Work Phone: [facility] 05-27-2024 09:45-0400 Diastolic blood pressure 70 mm[Hg] Hayde Ward MD Work Phone: [facility] 05-27-2024 09:45-0400 Heart rate 82 /min Hayde Ward MD Work Phone: [facility] 05-27-2024 09:45-0400 SaO2% (BldA) [Mass fraction] 98 % Hayde Ward MD Work Phone: [facility] 05-27-2024 09:45-0400 Systolic blood pressure 118 mm[Hg] Hayde Ward MD Work Phone: [facility] 05-27-2024 07:05-0400 Body mass index (BMI) [Ratio] 31.6 kg/m2 Leslye Winter PA-C Work Phone: [facility] 05-27-2024 07:05-0400 Body temperature 97.39 [degF] Leslye Winter PA-C Work Phone: [facility] 05-27-2024 07:05-0400 Body weight 97.07 kg Leslye Winter PA-C Work Phone: [facility] 05-27-2024 07:05-0400 Diastolic blood pressure 72 mm[Hg] Leslye Winter PA-C Work Phone: [facility] 05-27-2024 07:05-0400 Heart rate 69 /min Leslye Winter PA-C Work Phone: [facility] 05-27-2024 07:05-0400 Respiratory rate 18 /min Leslye Winter PA-C Work Phone: [facility] 05-27-2024 07:05-0400 SaO2% (BldA) [Mass fraction] 95 % Leslye Winter PA-C Work Phone: [facility] 05-27-2024 07:05-0400 Systolic blood pressure 128 mm[Hg] Leslye Winter PA-C Work Phone: [facility] 05-03-2024 10:17-0400 Body mass index (BMI) [Ratio] 31.16 kg/m2 Murray Mooney MD Work Phone: [facility] 05-03-2024 10:17-0400 Body temperature 97.39 [degF] Murray Mooney MD Work Phone: [facility] 05-03-2024 10:17-0400 Body weight 95.71 kg Murray Mooney MD Work Phone: [facility] 05-03-2024 10:17-0400 Diastolic blood pressure 65 mm[Hg] Murray Mooney MD Work Phone: [facility] 05-03-2024 10:17-0400 Heart rate 87 /min Murray Mooney MD Work Phone: [facility] 05-03-2024 10:17-0400 SaO2% (BldA) [Mass fraction] 95 % Murray Mooney MD Work Phone: [facility] 05-03-2024 10:17-0400 Systolic blood pressure 115 mm[Hg] Murray Mooney MD Work Phone: [facility] 04-16-2024 08:28-0400 Diastolic blood pressure 83 mm[Hg] Ovidio Vincent MD Work Phone: [facility] 04-16-2024 08:28-0400 Systolic blood pressure 135 mm[Hg] Ovidio Vincent MD Work Phone: [facility] 04-16-2024 08:08-0400 Body mass index (BMI) [Ratio] 31.16 kg/m2 Ovidio Vincent MD Work Phone: [facility] 04-16-2024 08:08-0400 Body weight 95.71 kg Ovidio Vincent MD Work Phone: [facility] 04-16-2024 08:08-0400 Respiratory rate 18 /min Ovidio Vincent MD Work Phone: [facility] 01-03-2024 10:21-0400 Diastolic blood pressure 60 mm[Hg] Ovidio Vincent MD Work Phone: [facility] 01-03-2024 10:21-0400 Systolic blood pressure 122 mm[Hg] Ovidio Vincent MD Work Phone: [facility] 01-03-2024 09:52-0400 Body weight 97.52 kg Ovidio Vincent MD Work Phone: [facility] 01-03-2024 09:52-0400 Heart rate 76 /min Ovidio Vincent MD Work Phone: [facility] 01-03-2024 09:52-0400 Respiratory rate 16 /min Ovidio Vincent MD Work Phone: [facility] 11-27-2023 08:10-0400 Body height 175.3 cm Christine Gaming APRN.BACK TENDER P[employer]ER MACHINE Work Phone: [facility] 11-27-2023 08:10-0400 Body temperature 98.1 [degF] Christine Gaming APRN.BACK TENDER PAPER MACHINE Work Phone: [facility] 11-27-2023 08:10-0400 Body weight 100.88 kg Christine Pierreter TONGUE LINING STITCHER.BACK TENDER PAPER MACHINE Work Phone: [facility] 11-27-2023 08:10-0400 Diastolic blood pressure 64 mm[Hg] Christine Pierreter TONGUE LINING STITCHER.BACK TENDER PAPER MACHINE Work Phone: [facility] 11-27-2023 08:10-0400 Heart rate 51 /min Christine Inverness TONGUE LINING STITCHER.BACK TENDER PAPER MACHINE Work Phone: [facility] 11-27-2023 08:10-0400 SaO2% (BldA) [Mass fraction] 97 % Christine Pierreter TONGUE LINING STITCHER.BACK TENDER PAPER MACHINE Work Phone: [facility] 11-27-2023 08:10-0400 Systolic blood pressure 108 mm[Hg] Christine Pierreter TONGUE LINING STITCHER.BACK TENDER PAPER MACHINE Work Phone: [facility] 11-01-2023 09:48-0500 Body weight 99.79 kg Loretta Leon PA-C Work Phone: [facility] 08-17-2023 15:22-0500 Body height 175.[address] Ovidio Vincent Work Phone: [facility] 08-17-2023 15:22-0500 Body mass index (BMI) [Ratio] 33 kg/m2 Dr. Ovidio Vincent Work Phone: [facility] 08-17-2023 15:22-0500 Body weight 101.[address] Ovidio Vincent Work Phone: [facility] 08-17-2023 15:22-0500 Diastolic blood pressure 81 mm[Hg] Dr. Ovidio Vincent Work Phone: [facility] 08-17-2023 15:22-0500 Heart rate 82 /min Dr. Ovidio Vincent Work Phone: [facility] 08-17-2023 15:22-0500 Respiratory rate 16 /min Dr. Ovidio Vincent Work Phone: [facility] 08-17-2023 15:22-0500 Systolic blood pressure 137 mm[Hg] Dr. Ovidio Vincent Work Phone: [facility] 08-01-2023 10:41-0500 Body weight 100.25 kg Rebecca Jansen TONGUE LINING STITCHER.BACK TENDER PAPER MACHINE Work Phone: [facility] 08-01-2023 10:41-0500 Diastolic blood pressure 80 mm[Hg] Rebecca Jansen TONGUE LINING STITCHER.BACK TENDER PAPER MACHINE Work Phone: [facility] 08-01-2023 10:41-0500 Heart rate 86 /min Rebecca Jansen TONGUE LINING STITCHER.BACK TENDER PAPER MACHINE Work Phone: [facility] 08-01-2023 10:41-0500 Respiratory rate 16 /min Rebecca Jansen TONGUE LINING STITCHER.BACK TENDER PAPER MACHINE Work Phone: [facility] 08-01-2023 10:41-0500 Systolic blood pressure 128 mm[Hg] Rebecca Jansen TONGUE LINING STITCHER.BACK TENDER PAPER MACHINE Work Phone: [facility] 07-12-2023 08:57-0400 Body height 175.3 cm Loretta Marquise PA-C Work Phone: [facility] 07-12-2023 08:57-0400 Body weight 105.23 kg Loretta Marquise PA-C Work Phone: [facility] 07-12-2023 08:57-0400 Diastolic blood pressure 72 mm[Hg] Loretta Marquise PA-C Work Phone: [facility] 07-12-2023 08:57-0400 Heart rate 68 /min Loretta Marquise PA-C Work Phone: [facility] 07-12-2023 08:57-0400 Respiratory rate 14 /min Loretta Marquise PA-C Work Phone: [facility] 07-12-2023 08:57-0400 SaO2% (BldA) [Mass fraction] 96 % Loretta Marquise PA-C Work Phone: [facility] 07-12-2023 08:57-0400 Systolic blood pressure 130 mm[Hg] Loretta Leon PA-C Work Phone: [facility] 06-12-2023 13:22-0400 Body temperature 98.01 [degF] Ovidio Vincent MD Work Phone: [facility] 06-12-2023 13:22-0400 Body weight 100.43 kg Ovidio Vincent MD Work Phone: [facility] 06-12-2023 13:22-0400 Diastolic blood pressure 74 mm[Hg] Ovidio Vincent MD Work Phone: [facility] 06-12-2023 13:22-0400 Heart rate 80 /min Ovidio Vincent MD Work Phone: [facility] 06-12-2023 13:22-0400 Respiratory rate 16 /min Ovidio Vincent MD Work Phone: [facility] 06-12-2023 13:22-0400 Systolic blood pressure 120 mm[Hg] Ovidio Vincent MD Work Phone: [facility] 05-25-2023 11:59-0400 Body temperature 99.5 [degF] Marni Athy PA-C Work Phone: [facility] 05-25-2023 11:59-0400 Body weight 101.61 kg Marni Athy PA-C Work Phone: [facility] 05-25-2023 11:59-0400 Diastolic blood pressure 78 mm[Hg] Marni Athy PA-C Work Phone: [facility] 05-25-2023 11:59-0400 Heart rate 90 /min Marni Athy PA-C Work Phone: [facility] 05-25-2023 11:59-0400 Respiratory rate 22 /min Marni Athy PA-C Work Phone: [facility] 05-25-2023 11:59-0400 SaO2% (BldA) [Mass fraction] 95 % Marni Athy PA-C Work Phone: [facility] 05-25-2023 11:59-0400 Systolic blood pressure 136 mm[Hg] Marni Gonzalez PA-C Work Phone: [facility] 05-02-2023 09:25-0400 Body height 175.[address] Ovidio Vincent Work Phone: [facility] 05-02-2023 09:25-0400 Body mass index (BMI) [Ratio] 33.2 kg/m2 Dr. Ovidio Vincent Work Phone: [facility] 05-02-2023 09:25-0400 Body weight 102.[address] Ovidio Vincent Work Phone: [facility] 05-02-2023 09:25-0400 Diastolic blood pressure 76 mm[Hg] Dr. Ovidio Vincent Work Phone: [facility] 05-02-2023 09:25-0400 Heart rate 80 /min Dr. Ovidio Vincent Work Phone: [facility] 05-02-2023 09:25-0400 Respiratory rate 16 /min Dr. Ovidio Vincent Work Phone: [facility] 05-02-2023 09:25-0400 Systolic blood pressure 123 mm[Hg] Dr. Ovidio Vincent Work Phone: [facility] 03-30-2023 06:57-0400 Body temperature 97.7 [degF] Leslye HELLER-C Work Phone: [facility] 03-30-2023 06:57-0400 Body weight 101.61 kg Leslye Winter PA-C Work Phone: [facility] 03-30-2023 06:57-0400 Diastolic blood pressure 80 mm[Hg] Leslye Winter PA-C Work Phone: [facility] 03-30-2023 06:57-0400 Heart rate 80 /min Leslye Winter PA-C Work Phone: [facility] 03-30-2023 06:57-0400 Respiratory rate 18 /min Leslye Winter PA-C Work Phone: [facility] 03-30-2023 06:57-0400 Systolic blood pressure 116 mm[Hg] Leslye Winter PA-C Work Phone: [facility] 03-22-2023 16:37-0400 Body height 175.26 cm [facility] 03-22-2023 16:37-0400 Body mass index (BMI) [Ratio] 33 kg/m2 [facility] 03-22-2023 16:37-0400 Body temperature 96.7 [degF] [facility] 03-22-2023 16:37-0400 Body weight 101.6 kg [facility] 03-22-2023 16:37-0400 Diastolic blood pressure 83 mm[Hg] [facility] 03-22-2023 16:37-0400 Heart rate 86 /min [facility] 03-22-2023 16:37-0400 Respiratory rate 18 /min [facility] 03-22-2023 16:37-0400 SaO2% (BldA) [Mass fraction] 97 % [facility] 03-22-2023 16:37-0400 Systolic blood pressure 154 mm[Hg] [facility] 02-17-2023 13:13-0400 Body temperature 98.3 [degF] [facility] 02-17-2023 13:13-0400 Diastolic blood pressure 75 mm[Hg] [facility] 02-17-2023 13:13-0400 Heart rate 81 /min [facility] 02-17-2023 13:13-0400 Respiratory rate 16 /min [facility] 02-17-2023 13:13-0400 SaO2% (BldA) [Mass fraction] 98 % [facility] 02-17-2023 13:13-0400 Systolic blood pressure 114 mm[Hg] [facility] 02-17-2023 12:21-0400 Body height 175.26 cm [facility] 02-17-2023 12:21-0400 Body mass index (BMI) [Ratio] 34.3 kg/m2 [facility] 02-17-2023 12:21-0400 Body weight 105.5 kg [facility] 02-17-2023 08:38-0400 Body weight 104.33 kg Ovidio Vincent MD Work Phone: [facility] 02-17-2023 08:38-0400 Diastolic blood pressure 94 mm[Hg] Ovidio Vincent MD Work Phone: [facility] 02-17-2023 08:38-0400 Heart rate 80 /min Ovidio Vincent MD Work Phone: [facility] 02-17-2023 08:38-0400 Respiratory rate 18 /min Ovidio Vincent MD Work Phone: [facility] 02-17-2023 08:38-0400 Systolic blood pressure 144 mm[Hg] Ovidio Vincent MD Work Phone: [facility] 02-10-2023 12:01-0400 Heart rate 87 /min [facility] 02-10-2023 12:01-0400 SaO2% (BldA) [Mass fraction] 98 % [facility] 02-10-2023 08:14-0400 Body mass index (BMI) [Ratio] 31.7 kg/m2 [facility] 02-10-2023 08:14-0400 Body temperature 97.1 [degF] [facility] 02-10-2023 08:14-0400 Body weight 97.52 kg [facility] 02-10-2023 08:14-0400 Diastolic blood pressure 87 mm[Hg] [facility] 02-10-2023 08:14-0400 Respiratory rate 14 /min [facility] 02-10-2023 08:14-0400 Systolic blood pressure 154 mm[Hg] [facility] 01-14-2023 06:11-0400 Diastolic blood pressure 71 mm[Hg] [facility] 01-14-2023 06:11-0400 Heart rate 87 /min [facility] 01-14-2023 06:11-0400 Respiratory rate 16 /min [facility] 01-14-2023 06:11-0400 Systolic blood pressure 98 mm[Hg] [facility] 01-13-2023 15:45-0400 Body temperature 97.2 [degF] [facility] 01-13-2023 15:45-0400 SaO2% (BldA) [Mass fraction] 93 % [facility] 01-11-2023 11:35-0400 Body height 175.26 cm [facility] 01-11-2023 11:35-0400 Body weight 96.47 kg [facility] 01-10-2023 10:47-0400 Body mass index (BMI) [Ratio] 31.4 kg/m2 [facility] 12-16-2022 11:59-0400 Body weight 98.88 kg Ovidio Vincent MD Work Phone: [facility] 12-16-2022 11:59-0400 Diastolic blood pressure 70 mm[Hg] Ovidio Vincent MD Work Phone: [facility] 12-16-2022 11:59-0400 Heart rate 72 /min Ovidio Vincent MD Work Phone: [facility] 12-16-2022 11:59-0400 Respiratory rate 18 /min Ovidio Vincent MD Work Phone: [facility] 12-16-2022 11:59-0400 Systolic blood pressure 128 mm[Hg] Ovidio Vincent MD Work Phone: [facility] 11-07-2022 09:38-0500 Body height 175.3 cm Mitchel Jones MD Work Phone: [facility] 11-07-2022 09:38-0500 Body temperature 97.9 [degF] Mitchel Jones MD Work Phone: [facility] 11-07-2022 09:38-0500 Body weight 103.19 kg Mitchel Jones MD Work Phone: [facility] 11-07-2022 09:38-0500 Diastolic blood pressure 86 mm[Hg] Mitchel Jones MD Work Phone: [facility] 11-07-2022 09:38-0500 Heart rate 51 /min Mitchel Jones MD Work Phone: [facility] 11-07-2022 09:38-0500 Systolic blood pressure 131 mm[Hg] Mitchel Jones MD Work Phone: [facility] 11-03-2022 08:15-0500 Diastolic blood pressure 81 mm[Hg] Ovidio Vincent MD Work Phone: [facility] 11-03-2022 08:15-0500 Heart rate 75 /min Ovidio Vincent MD Work Phone: [facility] 11-03-2022 08:15-0500 Systolic blood pressure 135 mm[Hg] Ovidio Vincent MD Work Phone: [facility] 11-03-2022 07:55-0500 Body weight 104.33 kg Ovidio Vincent MD Work Phone: [facility] 11-03-2022 07:55-0500 Respiratory rate 16 /min Ovidio Vincent MD Work Phone: [facility] 10-28-2022 09:14-0500 Body weight 104.33 kg Hayde Ward MD Work Phone: [facility] 09-30-2022 08:27-0500 Diastolic blood pressure 68 mm[Hg] Ovidio Vincent MD Work Phone: [facility] 09-30-2022 08:27-0500 Systolic blood pressure 134 mm[Hg] Ovidio Vincent MD Work Phone: [facility] 09-30-2022 08:01-0500 Body height 177.2 cm Ovidio Vincent MD Work Phone: [facility] 09-30-2022 08:01-0500 Body weight 102.97 kg Ovidio Vincent MD Work Phone: [facility] 09-30-2022 08:01-0500 Heart rate 68 /min Ovidio Vincent MD Work Phone: [facility] 09-30-2022 08:01-0500 Respiratory rate 16 /min Ovidio Vincent MD Work Phone: [facility] 08-08-2022 08:56-0500 Body height 177.8 cm Hayde Ward MD Work Phone: [facility] 08-08-2022 08:56-0500 Body weight 98.4 kg Hayde Ward MD Work Phone: [facility] 08-08-2022 08:56-0500 Diastolic blood pressure 83 mm[Hg] Hayde Ward MD Work Phone: [facility] 08-08-2022 08:56-0500 Heart rate 77 /min Hayde Ward MD Work Phone: [facility] 08-08-2022 08:56-0500 Respiratory rate 14 /min Hayde Ward MD Work Phone: [facility] 08-08-2022 08:56-0500 SaO2% (BldA) [Mass fraction] 96 % Hayde Ward MD Work Phone: [facility] 08-08-2022 08:56-0500 Systolic blood pressure 156 mm[Hg] Hayde Ward MD Work Phone: [facility] 07-04-2022 13:45-0400 Body weight 98.88 kg Ovidio Vincent MD Work Phone: [facility] 07-04-2022 13:45-0400 Diastolic blood pressure 80 mm[Hg] Ovidio Vincent MD Work Phone: [facility] 07-04-2022 13:45-0400 Heart rate 86 /min Ovidio Vincent MD Work Phone: [facility] 07-04-2022 13:45-0400 Respiratory rate 18 /min Ovidio Vincent MD Work Phone: [facility] 07-04-2022 13:45-0400 Systolic blood pressure 122 mm[Hg] Ovidio Vincent MD Work Phone: [facility] 04-26-2022 08:55-0400 Body height 177.5 cm Ela Alvarez MD Work Phone: [facility] 04-26-2022 08:55-0400 Body temperature 97.59 [degF] Ela Alvarez MD Work Phone: [facility] 04-26-2022 08:55-0400 Body weight 98.2 kg Ela Alvarez MD Work Phone: [facility] 04-26-2022 08:55-0400 Diastolic blood pressure 91 mm[Hg] Ela Alvarez MD Work Phone: [facility] 04-26-2022 08:55-0400 Heart rate 80 /min Ela Alvarez MD Work Phone: [facility] 04-26-2022 08:55-0400 SaO2% (BldA) [Mass fraction] 96 % Ela Alvarez MD Work Phone: [facility] 04-26-2022 08:55-0400 Systolic blood pressure 155 mm[Hg] Ela Alvarez MD Work Phone: [facility] 03-22-2022 07:02-0400 Body temperature 97.59 [degF] Leslye Winter PA-C Work Phone: [facility] 03-22-2022 07:02-0400 Body weight 99.34 kg Leslye Winter PA-C Work Phone: [facility] 03-22-2022 07:02-0400 Diastolic blood pressure 86 mm[Hg] Leslye Winter PA-C Work Phone: [facility] 03-22-2022 07:02-0400 Heart rate 72 /min Leslye Winter PA-C Work Phone: [facility] 03-22-2022 07:02-0400 Respiratory rate 18 /min Leslye Winter PA-C Work Phone: [facility] 03-22-2022 07:02-0400 Systolic blood pressure 126 mm[Hg] Leslye Winter PA-C Work Phone: [facility] 01-20-2022 09:01-0400 Body height 177.8 cm Loretta Marquise PA-C Work Phone: [facility] 01-20-2022 09:01-0400 Body temperature 97.39 [degF] Loretta Marquise PA-C Work Phone: [facility] 01-20-2022 09:01-0400 Body weight 100.88 kg Loretta Marquise PA-C Work Phone: [facility] 01-20-2022 09:01-0400 Diastolic blood pressure 68 mm[Hg] Loretta Marquise PA-C Work Phone: [facility] 01-20-2022 09:01-0400 Heart rate 91 /min Loretta Marquise PA-C Work Phone: [facility] 01-20-2022 09:01-0400 Respiratory rate 18 /min Loretta Marquise PA-C Work Phone: [facility] 01-20-2022 09:01-0400 SaO2% (BldA) [Mass fraction] 96 % Loretta Marquise PA-C Work Phone: [facility] 01-20-2022 09:01-0400 Systolic blood pressure 131 mm[Hg] Loretta Marquise PA-C Work Phone: [facility] Encounters Encounter Date Encounter Type Care Provider Facility Start: 03-14-2025 ambulatory [facility] Facility:[facility] Start: 03-13-2025 Encounter for other preprocedural examination [facility] Start: 03-06-2025 ambulatory [facility] Start: 03-05-2025 End: 03-05-2025 Chart abstracting Ramu Alanis MA [facility] Start: 03-04-2025 Encounter for other preprocedural examination [facility] Start: 03-04-2025 Encounter for preprocedural cardiovascular examination Patsy Gamble [facility] Start: 03-04-2025 ambulatory [facility] Facility:[facility] Start: 03-04-2025 Non-patient / Non-visit Dr. Caio davies MD -[facility] Start: 03-04-2025 End: 03-04-2025 Admission to same day surgery center Dr. Caio Gomez MD -[employer] [employer] Work Phone: Start: 03-04-2025 End: 03-04-[address] Ovidio Vincent MD Work Phone: [facility] Work Phone: Start: 02-27-2025 End: 02-27-2025 Chart abstracting Ovidio Vincent MD Work Phone: [facility] [place] Comment on above: Outside Echo Start: 02-26-2025 ambulatory [facility] Facility:[facility] Start: 02-26-2025 Non-patient / Non-visit Dr. Patsy dodge MD [facility] Start: 02-26-2025 End: 02-26-[address] Ovidio Vincent MD Work Phone: [facility] Work Phone: Start: 02-26-2025 End: 02-26-[address] Patsy Gamble MD -[facility] Work Phone: Start: 02-26-2025 End: 02-26-2025 ambulatory [facility] Facility:[facility] Start: 02-21-2025 End: 02-21-[address] Caio Gomez MD -[facility] Work Phone: Start: 02-21-2025 End: 02-21-[address] Ovidio Vincent MD Work Phone: [facility] Work Phone: Start: 02-19-2025 End: 02-19-2025 Chart abstracting Ovidio Vincent MD Work Phone: [facility] [place] Comment on above: Outside [id number] Ordered Start: 02-17-2025 End: 02-17-2025 Chart abstracting Ovidio Vincent MD Work Phone: [facility] [place] Comment on above: Outside Cardiology Outside [id number] Ordered Start: 02-17-2025 End: 02-17-[address] Patsy Gamble MD -[facility] Work Phone: Start: 02-17-2025 End: 02-17-[address] Patsy Gamble MD [facility] Start: 02-17-2025 End: 02-17-[address] Ovidio Vincent MD Work Phone: [facility] Work Phone: Start: 02-06-2025 End: 02-11-2025 Telephone encounter Ramu Alanis MA [facility] Comment on above: Patient Update (Medi ollie Clearance from [facility] ) Start: 01-16-2025 End: 01-16-2025 Refill [facility] Winter [facility]-C [facility] Comment on above: Refill Request Start: 01-14-[facility] Start: 01-03-2025 End: 01-03-2025 Chart abstracting Ovidio Vincent MD Work Phone: [facility] Comment on above: Outside Ortho Start: 01-02-2025 End: 01-02-[address] Caio Gomez MD -[facility] Work Phone: Start: 01-02-2025 End: 01-02-2025 ambulatory Caio Gomez Facility:[facility] Start: 12-27-2024 End: 12-27-2024 ambulatory OVIDIO VINCENT Facility:[facility] Start: 12-27-2024 End: 12-27-2024 Subsequent hospital visit by physician [facility] (I-Stat/1.5t) Work Phone: Radiology Start: 12-20-2024 End: 12-20-2024 ambulatory OVIDIO VINCENT Facility:[facility] Start: 12-20-2024 End: 12-20-2024 Patient encounter procedure Esvin Marcus Work Phone: Podiatry Comment on above: Diabetic polyneuropa thy associated with type 2 diabetes mellitus (HCC) (Primary Dx); Onychomycosis; PAD (peripheral artery disease); Pain in toe of left foot; Pain in toe of right foot Start: 12-11-2024 End: 12-11-2024 Refill Ovidio Vincent MD Work Phone: [facility] [place] Comment on above: Refill Request Start: 12-06-2024 End: 12-06-2024 Chart abstracting Ovidio Vincent MD Work Phone: [facility] [place] Comment on above: Outside Ortho Start: 12-05-2024 End: 12-05-[address] Caio Gomez MD -[facility] Work Phone: Start: 12-05-2024 End: 12-05-2024 ambulatory Caio Gomez Facility:[facility] Start: 11-30-2024 End: 12-02-2024 Refill Leslye Winter PA-C Work Phone: [facility] [place] Comment on above: Refill Request Start: 11-19-2024 End: 11-20-2024 Follow-up encounter Rebecca Jansen APRN.CNP Work Phone: [facility] [place] Comment on above: Refill Request Start: 11-18-2024 End: 11-18-2024 Patient encounter procedure Rebecca Jansen APRN.CNP Work Phone: [facility] [place] Comment on above: Advanced directives, [...] Start: 11-18-2024 End: 11-18-2024 ambulatory OVIDIO VINCENT Facility:[facility] Start: 11-12-2024 End: 11-12-2024 Telephone encounter Murray Mooney MD Work Phone: Hematology/Oncology Comment on above: Results Start: 11-04-2024 End: 11-04-2024 ambulatory OVIDIO VINCENT Facility:[facility] Start: 10-02-2024 End: 10-02-2024 Refill Rebecca Jansen APRN.CNP Work Phone: [employer] [employer] Comment on above: Refill Request Start: 10-01-2024 End: 10-01-2024 Orders [facility] Start: 09-30-2024 End: 09-30-2024 [facility]ulatory [facility] Start: 09-30-2024 End: 09-30-2024 Patient encounter procedure Rebecca Cheek MA [facility] Comment on above: Population Health [facility] Start: 09-03-2024 End: 09-03-2024 Refill Ovidio Vincent MD Work Phone: [facility] Comment on above: Refill Request Start: 08-21-2024 ambulatory Patsy Tye [facility] Start: 08-21-2024 End: 08-21-2024 ambulatory Patsy Tye Facility:[facility] Start: 08-09-2024 End: 08-09-2024 Chart abstracting [facility] Comment on above: Outside Card[facility] Start: 08-08-2024 End: 08-08-2024 ambulatory Patsy Tye Facility:[facility] Start: 08-05-2024 End: 08-05-2024 Telephone encounter Ovidio Vincent MD Work Phone: [facility] [place] Comment on above: Results Start: 08-01-2024 End: 08-01-2024 ambulatory OVIDIO VINCENT Facility:[facility] Start: 07-11-2024 End: 07-11-2024 Refill Leslye Winter PA-C Work Phone: [facility] [place] Comment on above: Refill Request Community Monitoring Outreach (3rd attempt this sequence Telephonic Outreach [facility] Home Monitoring/) Start: 07-02-2024 End: 07-02-2024 ambulatory OVIDIO VINCENT Facility:[facility] Start: 07-02-2024 End: 07-02-2024 Patient encounter procedure Esvin Junejulian Work Phone: Podiatry Comment on above: Onychomycosis (Prima ry Dx); Type 2 diabetes mellitus without complication, without long-term current use of insulin (HCC); PAD (peripheral artery disease) (HCC); Callus Start: 07-01-2024 End: 07-01-2024 ambulatory Ovidio Vincent MD Work Phone: [facility] Comment on above: RSV vaccine Start: 06-27-2024 End: 06-27-2024 ambulatory Marta Lui RN Work Phone: [employer] [employer] Comment on above: Community Monitoring Outreach (2nd attempt Telephonic Outreach [facility] Home Monitoring) Start: 06-26-2024 End: 06-26-2024 Telephone encounter Leslye Winter PA-C Work Phone: [facility] [place] Comment on above: Patient Update Start: 06-13-2024 End: 06-13-2024 ambulatory Marta Lui RN Work Phone: [facility] [employer] Comment on above: Community Monitoring Outreach (Telephonic Outreach [facility] Home Monitoring) Start: 05-30-2024 End: 05-30-2024 Ophthalmic examination and evaluation Ovidio Vincent MD Work Phone: [facility] Start: 05-30-2024 End: 05-30-2024 Patient encounter procedure Ovidio Vincent MD Work Phone: [facility] Comment on above: Medicare annual well ness [...] Start: 05-30-2024 End: 05-30-2024 ambulatory OVIDIO VINCENT Facility:[facility] Start: 05-29-2024 End: 05-30-2024 Telephone encounter Ovidio Vincent MD Work Phone: [facility] [place] Comment on above: Results Start: 05-29-2024 End: 05-29-2024 ambulatory OVIDIO VINCENT Facility:[facility] Start: 05-29-2024 End: 05-29-2024 Subsequent hospital visit by physician [facility] (I-Stat/1.5t) Work Phone: Radiology Comment on above: Vertigo [R42] Start: 05-27-2024 End: 05-27-2024 ambulatory OVIDIO VINCENT Facility:[facility] Start: 05-27-2024 End: 05-27-2024 Patient encounter procedure Leslye Winter PA-C Work Phone: [facility] [place] Comment on above: Pyogenic arthritis o f right elbow, due to unspecified organism (HCC) (Primary Dx); Iron deficiency anemia, unspecified iron deficiency anemia type; Essential hypertension; Pseudogout COPD, mild (HCC) (Pr imary Dx); Former cigarette smoker; Lung nodules Start: 05-10-2024 End: 05-10-2024 Refill Marta Lui RN Work Phone: [facility] [employer] Comment on above: Refill Request Community Monitoring Outreach (Telephonic Outreach [facility] Home Monitoring) Start: 05-03-2024 End: 05-03-2024 ambulatory Murray Mooney MD Work Phone: Hematology/Oncology Comment on above: Multiple myeloma in remission (HCC) (Primary Dx) Start: 05-03-2024 End: 05-03-2024 Patient encounter procedure Murray Mooney MD Work Phone: Hematology/Oncology Start: 04-26-2024 End: 04-26-2024 ambulatory Marta Lui RN Work Phone: [facility] [employer] Comment on above: Community Monitoring Outreach (2nd attempt Telephonic Outreach [facility] Home Monitoring) Start: 04-25-2024 Chart abstracting Ovidio chou MD Work Phone: [facility] [place] Comment on above: PT Discharge Summary Start: 04-25-2024 End: 04-25-2024 ambulatory [facility] Facility:[facility] Start: 04-24-2024 ambulatory Marta Lui RN Work Phone: [employer] [employer] Comment on above: Community Monitoring Outreach (Telephonic Outreach [facility] Home Monitoring) Start: 04-16-2024 Telephone encounter Ramu Alanis MA [facility] [place] Comment on above: Appointment (PT - [place]) Start: 04-16-2024 End: 04-16-2024 ambulatory OVIDIO VINCENT Facility:[facility] Start: 04-16-2024 End: 04-16-2024 Patient encounter procedure Ovidio Vincent MD Work Phone: [facility] [place] Comment on above: Vertigo (Primary Dx) ; Neck pain; Muscle spasms of neck; Essential hypertension; Mixed hyperlipidemia; Type 2 diabetes mellitus without complication, without long-term current use of insulin (HCC); Gastroesophageal reflux disease, unspecified whether esophagitis present; Hypomagnesemia; Low serum vitamin B12; Vitamin D deficiency; Prostate disorder; Medication management Start: 04-15-2024 ambulatory Marta Lui RN Work Phone: [facility] [employer] Comment on above: Community Monitoring Outreach (Telephonic Outreach [facility] Home Monitoring) Start: 04-08-2024 Refill Leslye Nevarez on PA-C Work Phone: [facility] [place] Comment on above: Refill Request Start: 03-25-2024 ambulatory Patsy Gamble Facility:[facility] Start: 03-24-2024 ambulatory Ovidio lara MD Work Phone: [facility] [place] Comment on above: prescriptions Start: 03-15-2024 ambulatory Marta Lui RN Work Phone: [facility] [employer] Comment on above: Community Monitoring Outreach (Telephonic Outreach [facility] Home Monitoring) Start: 03-13-2024 Refill Ovidio lara MD Work Phone: [facility] [place] Comment on above: Refill Request Start: 03-06-2024 Chart abstracting Ovidio chou MD Work Phone: [facility] [place] Comment on above: Outside Cardiology Start: 02-16-2024 ambulatory Nataliya Shaffer RN [facility] Comment on above: CDM (Community Monit oring Outreach Call //) Start: 02-15-2024 ambulatory Marta Lui RN Work Phone: [facility] [employer] Comment on above: Community Monitoring Outreach (Telephonic Outreach [facility] Home Monitoring) Start: 02-05-2024 Chart abstracting Ovidio chou MD Work Phone: [facility] [place] Comment on above: Outside PT Start: 01-18-2024 ambulatory Marianela Dent RN Work Phone: [employer]visor [employer] Comment on above: Community Monitoring Outreach Start: 01-17-2024 ambulatory Marta Lui RN Work Phone: [employer]visor [employer] Comment on above: Community Monitoring Outreach (Telephonic Outreach CDM Home Monitoring) Start: 01-16-2024 Telephone encounter Ovidio Vincent MD Work Phone: [facility] [place] Comment on above: Patient Request Start: 01-03-2024 End: 01-03-2024 Patient encounter procedure Ovidio Vincent MD Work Phone: [facility] [place] Comment on above: Pre-op examination ( Primary Dx); Epiretinal membrane (ERM) of left eye; Essential hypertension; Type 2 diabetes mellitus with stage 3a chronic kidney disease, without long-term current use of insulin (HCC); Paroxysmal atrial fibrillation (HCC) Start: 01-03-2024 End: 01-03-2024 Preprocedural examination done Ovidio Vincent MD Work Phone: [facility] Work Phone: Start: 12-26-2023 Preprocedural examin ation done Ovidio Vincent MD Work Phone: [facility] Work Phone: Start: 12-26-2023 Telephone encounter Ovidio Vincent MD Work Phone: [facility] [place] Comment on above: Surgical Clearance Start: 12-21-2023 ambulatory Marta Lui RN Work Phone: Supervisor [employer] Comment on above: Community Monitoring Outreach (Telephonic Outreach CDM Home Monitoring) Start: 11-27-2023 End: 11-27-2023 Patient encounter procedure Christine Gaming APRN.CNP Work Phone: Pulmonary Medicine Comment on above: Encounter for screen ing for lung cancer (Primary Dx); Former cigarette smoker Start: 11-23-2023 ambulatory Marta Lui RN Work Phone: Supervisor [employer] Comment on above: Community Monitoring Outreach (Telephonic Outreach CDM Home Monitoring) Start: 11-06-2023 Telephone encounter Murray magaña MD Work Phone: Hematology/Oncology Start: 11-01-2023 End: 11-01-2023 Office outpatient visit 25 minutes Loretta Leon PA-C Work Phone: Pulmonary Medicine Comment on above: COPD with chronic br onchitis (Primary Dx); Former cigarette smoker; Lung nodules; Irregular heart beat; Morbid (severe) obesity due to excess calories (HCC) Start: 10-27-2023 Telephone encounter Leslye hogan PA-C Work Phone: [facility] Comment on above: Results Start: 10-11-2023 End: 10-11-[address] Ovidio Vincent Work Phone: [facility] Work Phone: Start: 10-11-2023 End: 10-11-[address] Ovidio Vincent Work Phone: [facility]Physical Therapy Work Phone: Start: 09-22-2023 Ophthalmic examinati on and evaluation OVIDIO VINCENT [facility] Start: 09-15-2023 Chart abstracting Ovidio chou MD Work Phone: [facility] Comment on above: Outside Diabetic Eye Exam Start: 09-15-2023 Ophthalmic examinati on and evaluation Ovidio Vincent MD Work Phone: [facility] Start: 08-20-2023 ambulatory Ovidio lara MD Work Phone: [facility] Start: 08-18-2023 Chart abstracting Ovidio chou MD Work Phone: [facility] Comment on above: Outside Cardiology Start: 08-17-2023 End: 08-17-[address] Ovidio Vincent Work Phone: [facility] [facility] Work Phone: Start: 08-03-2023 Telephone encounter Rebecca frank APRN.BACK TENDER PAPER MACHINE Work Phone: [facility] Comment on above: Results Start: 08-01-2023 End: 08-01-2023 Patient encounter procedure Rebecca Jansen APRN.BACK TENDER PAPER MACHINE Work Phone: [facility] Comment on above: Pre-op testing (Prim tommy Dx) Start: 08-01-2023 End: 08-01-2023 Patient encounter status Rebecca Jansen APRN.BACK TENDER PAPER MACHINE Work Phone: [facility] Work Phone: Start: 07-31-2023 End: 07-31-2023 Subsequent hospital visit by physician [facility] (I-Stat) Work Phone: Cat Scan Comment on above: Lung nodules [R91.8] Start: 07-26-2023 Admission to [facility] Ovidio Vincent MD Work Phone: [facility] [place] Comment on above: surgery Start: 07-26-2023 ambulatory Marta Lui RN Work Phone: [employer]visor [employer] Comment on above: Community Monitoring Outreach (2nd attempt Telephonic Outreach CDM Home Monitoring) Refill Request Start: 07-25-2023 ambulatory Marta Liu RN Work Phone: Supervisor [employer] Comment on above: Community Monitoring Outreach (Telephonic Outreach CDM Home Monitoring) Start: 07-18-2023 ambulatory Ovdiio lara MD Work Phone: [facility] [place] Comment on above: handicap placard Start: 07-12-2023 End: 07-12-2023 Office outpatient visit 25 minutes Loretta Leon PA-C Work Phone: Pulmonary Medicine Comment on above: COPD with chronic br onchitis (Primary Dx); Lung nodules; Need for influenza vaccination; Former cigarette smoker Start: 06-27-2023 ambulatory Marta Lui RN Work Phone: Supervisor [employer] Comment on above: Community Monitoring Outreach (Telephonic Outreach CDM Home Monitoring) Start: 06-23-2023 Telephone encounter Ovidio Vincent MD Work Phone: [facility] [place] Comment on above: Pre-op order Start: 06-12-2023 End: 06-12-2023 Patient encounter procedure Ovidio Vincent MD Work Phone: [facility] [place] Comment on above: Dysfunction of left eustachian tube (Primary Dx) Start: 06-05-2023 Telephone encounter Ovidio Vincent MD Work Phone: [facility] [place] Comment on above: Medication Question Start: 06-02-2023 Chart abstracting Ovidio chou MD Work Phone: [facility] Comment on above: Outside Echo Start: 06-01-2023 Non-patient / Non-[facility] Work Phone: Start: 05-29-2023 Non-patient / Non-visit Dr. Connor Vincent Work Phone: [facility] Start: 05-29-2023 End: 05-29-[address] Ovidio Vincent Work Phone: [facility] Work Phone: Start: 05-29-2023 End: 05-29-[address] Ovidio Vincent Work Phone: [facility] Work Phone: Start: 05-28-2023 ambulatory Ovidio lara MD Work Phone: [facility] Comment on above: [employer] Start: 05-26-2023 Chart abstracting Ovidio chou MD Work Phone: [facility] Start: 05-25-2023 ambulatory Ovidio lara MD Work Phone: [facility] Comment on above: Enoxaprin Start: 05-25-2023 End: 05-25-2023 Patient encounter procedure Marni Gonzalez PA-C Work Phone: [facility] Comment on above: URI, acute (Primary Dx) Start: 05-19-2023 Refill Ovidio lara MD Work Phone: [facility] Comment on above: Refill Request/Expre ss Scripts Refill Request Start: 05-18-2023 ambulatory Yareli Soriano RN Ambu l[facility] Care Management Comment on above: Community Monitoring Outreach (CDM Telephonic Outreach) Start: 05-02-2023 Chart abstracting Ovidio chou MD Work Phone: [facility] [place] Comment on above: Outside Cardiology Start: 05-02-2023 End: 05-02-[address] Ovidio Vincent Work Phone: [facility]Laboratory Work Phone: Start: 05-02-2023 End: 05-02-[address] Ovidio Vincent Work Phone: [facility] Work Phone: Start: 05-01-2023 Telephone encounter Ovidio Vincent MD Work Phone: [facility] [place] Comment on above: Orders (Medication/) Start: 04-29-2023 Refill Hayde Ward MD Work Phone: Pulmonary Medicine Comment on above: Refill Request Start: 04-19-2023 ambulatory Marta Lui RN Work Phone: [employer]visor [employer] Comment on above: Community Monitoring Outreach (Telephonic Outreach CDM Home Monitoring) blood pressure Start: 04-13-2023 ambulatory Ovidio lara MD Work Phone: [facility] Comment on above: Heart monitor Start: 04-05-2023 Telephone encounter Ramu Alanis MA [facility] [place] Comment on above: Results Start: 04-03-2023 ambulatory Marta Lui RN Work Phone: Supervisor [employer] Comment on above: Community Monitoring Outreach (Telephonic Outreach CDM Home Monitoring) Start: 04-02-2023 REFILL - MYCKALAT Heath Junior DO Work Phone: Medical Records Comment on above: Medication Refill Ap proved Start: 03-31-2023 Telephone encounter Leslye hogan PA-C Work Phone: [facility] [place] Comment on above: Results Refill Request Start: 03-30-2023 End: 03-30-2023 Patient encounter procedure Leslye Winter PA-C Work Phone: [facility] [place] Comment on above: Type 2 [...] Registered Referred Dr. Can Vincent Work Phone: [facility]Cardi[facility] Work Phone: Start: 03-24-2023 Telephone encounter Ovidio Vincent MD Work Phone: [facility] Comment on above: Results Start: 03-23-2023 Chart abstracting Ovidio chou MD Work Phone: [facility] Comment on above: ER Discharge Summary Start: 03-22-2023 Patient encounter status [facility] Start: 03-22-2023 End: 03-22-2023 Emergency department patient visit [facility]Emergency Department Work Phone: Start: 03-22-2023 End: 03-22-2023 Nursing evaluation of patient and report Mi Nurse Work Phone: [facility] Comment on above: Irregular heart beat (Primary Dx) Start: 03-22-2023 Telephone encounter Ovidio Vincent MD Work Phone: [facility] Comment on above: Patient Update Start: 03-20-2023 End: 03-20-2023 Patient encounter procedure Loretta Leon PA-C Work Phone: Pulmonary Medicine Comment on above: 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); Irregular heart beat; Lung nodules; Former cigarette smoker Start: 03-12-2023 ambulatory Ovidio lara MD Work Phone: [facility] Comment on above: Celebrex Start: 03-07-2023 End: 03-07-[address] Ovidio Vincent Work Phone: [facility] Work Phone: Start: 03-07-2023 End: 03-07-[address] [facility] Work [facility]: Start: 03-07-2023 [facility] Start: 03-06-2023 Refill Ovidio lara MD Work Phone: [facility] Comment on above: Refill Request Start: 02-28-2023 ambulatory Chanelletherese Mannjaqui um TONGUE LINING STITCHER.BACK TENDER PAPER MACHINE Work Phone: Pulmonary Medicine Start: 02-22-2023 Chart abstracting Ovidio chou MD Work Phone: [facility] Comment on above: ER F/U Start: 02-17-2023 ambulatory Ovidio lara MD Work Phone: [facility] Comment on above: leg swelling Start: 02-17-2023 End: 02-17-2023 Emergency department patient visit [facility]Emer[facility] Start: 02-17-2023 End: 02-17-2023 Patient encounter procedure Ovidio Vincent MD Work Phone: [facility] Comment on above: Bilateral leg edema (Primary Dx) Start: 02-15-2023 [facility] Start: 02-14-2023 Chart abstracting Ovidio chou MD Work Phone: [facility] Start: 02-10-2023 End: 02-10-2023 [facility] Start: 01-25-2023 ambulatory Rebecca (Molly) [facility] [place] Comment on above: Population Health Na vigation Outreach ([employer] Care Gaps) Start: 01-17-2023 ambulatory Mara Guardado RN Ambulato ry Care Management Comment on above: CDM (Telephonic outr each) Start: 01-16-2023 Patient Outreach [employer] [facility] Comment on above: Transition Of Care Appointment Start: 01-12-2023 Chart abstracting Ovidio chou MD Work Phone: [facility] Comment on above: ER F/U Start: 01-09-2023 Chart abstracting Ovidio chou MD Work Phone: [facility] Start: 01-05-2023 End: 01-14-2023 [facility] Start: 12-21-2022 ambulatory Mara Guardado RN Ambulato ry Care Management Comment on above: CDM (Telephonic outr each) Start: 12-19-2022 Telephone encounter Ovidio Vincent MD Work Phone: [facility] Comment on above: Results Start: 12-19-2022 End: 12-19-2022 Subsequent hospital visit by physician [facility] Work Phone: Radiology Comment on above: Ex-smoker [Z87.891] Start: 12-16-2022 Telephone encounter Ramu Alanis MA [facility] Comment on above: Appointment Start: 12-16-2022 End: 12-16-2022 Patient encounter procedure Ovidio Vincent MD Work Phone: [facility] Comment on above: Bilateral leg edema (Primary Dx); Essential hypertension; Type 2 diabetes mellitus without complication, without long-term current use of insulin (HCC); Ex-smoker; Encounter for abdominal aortic aneurysm (AAA) screening; Spinal stenosis, lumbar region, without neurogenic claudication; Weakness of both lower extremities; Increased weakness when ambulating; At high risk for falls; Vitamin D deficiency Start: 11-29-2022 [facility] [place] Comment on above: Population Health Na vigation Outreach ([employer] Care Gaps) Start: 11-25-2022 ambulatory Mara Guardado RN Ambulato ry Care Management Comment on above: CDM (Telephonic outr each) Start: 11-24-2022 ambulatory Mara Guardado RN Ambulato ry Care Management Comment on above: CDM (Telephonic outr each) Start: 11-08-2022 Refill Ovidio lara MD Work Phone: [facility] [place] Comment on above: Refill Request Start: 11-07-2022 End: 11-07-2022 ambulatory Mitchel Jones MD Work Phone: Hematology/Oncology Comment on above: Multiple myeloma in remission (HCC) (Primary Dx) Start: 11-07-2022 End: 11-07-2022 Patient encounter procedure Mitchel Jones MD Work Phone: [facility] Start: 11-03-2022 End: 11-03-2022 Patient encounter procedure Ovidio Vincent MD Work Phone: [facility] [place] Comment on above: Bilateral leg edema (Primary Dx); Essential hypertension Start: 10-28-2022 End: 10-28-2022 Patient encounter procedure Hayde Ward MD Work Phone: Pulmonary Medicine Comment on above: 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); Lung nodules; Former cigarette smoker Start: 10-27-2022 ambulatory OVIDIO VINCENT Facili ty:[facility] Start: 10-27-2022 End: 10-27-2022 Subsequent hospital visit by physician X[facility] Radiology Comment on above: Multiple myeloma in remission (HCC) [C90.01] Start: 10-24-2022 Refill Ovidio lara MD Work Phone: [facility] [place] Comment on above: Refill Request Start: 10-21-2022 Orders Only Heath Peña O Work Phone: Hematology/Oncology Comment on above: Multiple myeloma in remission (HCC) (Primary Dx); H/O autologous stem cell transplant (HCC) Medication Request Start: 10-13-2022 ambulatory Ramu Alanis MA [facility] [place] Comment on above: Eye Doctor Start: 10-13-2022 E-mail encounter fro m caregiver Ramu Alanis MA [facility] Start: 10-13-2022 Telephone encounter Ramu Alanis MA [facility] [place] Comment on above: Patient Update Results Start: 10-05-2022 Telephone encounter Ovidio Vincent MD Work Phone: [facility] [place] Comment on above: Results Start: 10-03-2022 End: 10-03-2022 Subsequent hospital visit by physician Melanie [facility] [place] Work Phone: Radiology Comment on above: Spinal stenosis, lum bar region, without neurogenic claudication [M48.061] Start: 09-30-2022 ambulatory No Pcp Grover Loving Start: 09-30-2022 Telephone encounter Ramu Alanis MA [facility] [place] Comment on above: Appointment (Appoint ment with Dr. Head ) Start: 09-30-2022 End: 09-30-2022 Ophthalmic examination and evaluation Ovidio Vincent MD Work Phone: [facility] [place] Start: 09-30-2022 End: 09-30-2022 Patient encounter procedure Ovidio Vincent MD Work Phone: [facility] Work Phone: Comment on above: Medicare [facility], subsequent (Primary Dx); Type 2 [...] 09-21-2022 ambulatory Nargis alonso RN Work Phone: Supervisor [employer] Comment on above: Community Monitoring Outreach (CDM) Start: 09-19-2022 Refill Ovidio lara MD Work Phone: [facility] Comment on above: Refill Request Start: 09-12-2022 Refill Leslye Nevarez on PA-C Work Phone: [facility] Comment on above: Refill Request Start: 09-05-2022 Refill Hayde Ward MD Work Phone: Pulmonary Medicine Comment on above: Refill Request Start: 08-30-2022 Telephone encounter Hayde Ward MD Work Phone: Pulmonary Medicine Comment on above: Orders (CXR order) Start: 08-30-2022 End: 08-30-2022 ambulatory [facility] Work Phone: Start: 08-30-2022 End: 08-30-2022 Patient encounter procedure [facility] Start: 08-29-2022 Refill Hayde Ward MD Work Phone: Pulmonary Medicine Comment on above: Refill Request Start: 08-24-2022 ambulatory Nargis alonso RN Work Phone: [facility] [place] Start: 08-24-2022 Follow-up encounter Nargis Ortega RN Work Phone: Supervisor [employer] Comment on above: Community Monitoring Outreach (CDM Follow Up) Start: 08-23-2022 ambulatory Nargis alonso RN Work Phone: [facility] [place] Start: 08-23-2022 Follow-up encounter Nargis Ortega RN Work Phone: Supervisor [employer] Comment on above: Community Monitoring Outreach [...] Ovidio Vincent MD Work Phone: [facility] [place] Comment on above: Inflammatory polyart hropathy (HCC) (Primary Dx); Encounter for immunization; ED (erectile dysfunction) of organic origin Start: 07-03-2022 Refill Ela Alvarez MD Work Phone: Hematology/Oncology Comment on above: Refill Request Start: 06-29-2022 ambulatory Nargis alonso RN Work Phone: Supervisor [employer] Comment on above: Community Monitoring Outreach (CDM Telephonic) Start: 06-28-2022 ambulatory Nargis alonso RN Work Phone: Supervisor [employer] Comment on above: Community Monitoring Outreach (CDM Telephonic ) Start: 06-17-2022 ambulatory Ovidio lara MD Work Phone: [facility] Comment on above: medications Start: 06-09-2022 Refill Ovidio lara MD Work Phone: [facility] Comment on above: Refill Request Start: 06-08-2022 Refill [facility] Comment on above: Refill Request Start: 06-02-2022 End: 06-02-2022 Patient encounter procedure Franco Zuñiga MD Work Phone: Orthopaedics Comment on above: Ganglion cyst (Prima ry Dx) Start: 05-31-2022 ambulatory Nargis alonso RN Work Phone: Supervisor [employer] Comment on above: Community Monitoring Outreach (CDM Telephonic) Start: 05-11-2022 ambulatory Nargis alonso RN Work Phone: [facility] Start: 05-11-2022 Follow-up encounter Nargis Ortega RN Work Phone: Supervisor [employer] Comment on above: Community Monitoring Outreach [...] procedure Ela Alvarez MD Work Phone: [facility] Start: 04-25-2022 Refill Leslye Nevarez on PA-C Work Phone: [facility] Comment on above: Refill Request Swelling Start: 04-19-2022 Telephone encounter Leslye hogan PA-C Work Phone: [facility] Comment on above: Results Start: 04-18-2022 End: 04-18-2022 Patient encounter procedure Mary Lopez PA-C Work Phone: Orthopaedics Comment on above: Swelling of left figueroa d (Primary Dx); Ganglion cyst; Dupuytren's contracture Start: 04-18-2022 End: 04-18-2022 Subsequent hospital visit by physician Melanie [facility] [place] Work Phone: Radiology Comment on [...] End: 03-22-2022 Patient encounter procedure Leslye Winter PA-C Work Phone: [facility] [place] Comment on above: Type 2 diabetes jolanta [...] 03-17-2022 Refill Ovidio lara MD Work Phone: [facility] [place] Comment on above: Refill Request Start: 03-16-2022 ambulatory Nargis alonso RN Work Phone: [facility] [place] Start: 03-16-2022 Follow-up encounter Nargis Ortega RN Work Phone: Supervisor [employer] Comment on above: Community Monitoring Outreach (Telephonic Follow Up) Start: 01-25-2022 ambulatory Loretta Cummins PA-C Work Phone: Pulmonary Medicine Comment on above: AMOX-CLAV Start: 01-24-2022 ambulatory Nargis alonso RN Work Phone: [facility] [place] Start: 01-24-2022 Follow-up encounter Nargis Ortega RN Work Phone: Supervisor [employer] Comment on above: Community Monitoring Outreach (Telephonic Follow Up) Start: 01-20-2022 End: 01-20-2022 Patient encounter procedure Loretta Conrad Leon PA-C Work Phone: Pulmonary Medicine Comment on above: 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); Cough; Non-seasonal allergic rhinitis, unspecified trigger; Pulmonary arterial hypertension (HCC); Acute bronchitis, unspecified organism; Former smoker Start: 01-16-2022 Refill Esvin Blank dirk Work Phone: Podiatry Comment on above: Refill Request Start: 01-08-2022 Refill Esvin Blank dirk Work Phone: Podiatry Comment on above: Refill Request Start: 01-06-2022 Refill Leslye Nevarez on PA-C Work Phone: [facility] [place] Comment on above: Refill Request Start: 12-28-2021 End: 12-28-2021 Patient encounter procedure [facility] Start: 12-27-2021 ambulatory Nargis alonso RN [employer] Comment on above: Community Monitoring Outreach (CDM Telephonic) Start: 10-19-2021 End: 10-19-2021 Discharged Recurring [facility] Start: 10-14-2021 End: 10-14-2021 Patient encounter procedure [facility] Start: 10-06-2021 Ophthalmic examinati on and evaluation Nargis Ortega RN [facility] Work Phone: Start: 10-06-2021 Patient encounter procedure Nargis Ortega RN [facility] Work Phone: Procedures Date Procedure Procedure Detail Performing Clinician Start: 03-04-2025 Excision of lamina o f lumbar vertebra Dr. Ovidio Vincent MD Work Phone: Start: 03-04-2025 Fluoroscopic guidance Casey Vincent MD Work Phone: Start: 02-26-2025 Cardiovascular stres s test using pharmacologic stress agent Dr. Ovidio Vincent MD Work Phone: Start: 12-27-2024 Mri spinal canal tho racic w/o contrast matrl [facility] Provider Start: 12-05-2024 X-ray of lumbosacral spine Dr. Ovidio Vincent MD Work Phone: Start: 05-30-2024 Adult depression scr eening assessment Ovidio Vincent MD Work Phone: Start: 05-29-2024 Mri brain brain stem w/o contrast material Ovidio Vincent MD Work Phone: Start: 03-26-2024 Ophth medical xm&kelly l intermediate estab pt [facility] Provider Start: 08-04-2023 Hemoglobin A1c/Hemoglobin.total in Blood [facility] Provider Start: 07-12-2023 INFLUENZA VACCINE, P RSV FREE, AGE 65+ YR, HIGH DOSE, QUADRIVALENT (FLUZONE HIGH-DOSE) Loretta Leon PASina Work Phone: Start: 03-22-2023 Ecg routine ecg w/le ast 12 lds i&r only [facility] Provider Start: 02-10-2023 Plain chest X-ray Start: 01-09-2023 Viral antigen assay Start: 12-19-2022 Us abdominal aorta r eal time screen study aaa Ovidio Vincent MD Work Phone: Start: 10-03-2022 Radex spine lumbosac ral minimum 4 views Ovidio Vincent MD Work Phone: Start: 08-30-2022 CT of chest Start: 07-04-2022 [employer] COVI D-19 BIVALENT BOOSTER VACCINE, AGE 12+ [...] Detail Author Start: 09-23-2029 Urine microalbumin profile [facility] Start: 11-18-2025 Annual PCP Team Chronic Disease Visit Annual PCP Team Chronic Disease Visit [facility] Start: 11-18-2025 BP Controlled (<130/80) BP Controlled (<130/80) [facility] Start: 11-18-2025 Hepatitis B surface antibody level LDL Cholesterol [facility] Start: 11-04-2025 Creatinine measurement Serum Creatinine [facility] Start: 08-01-2025 Creatinine measurement Serum Creatinine [facility] Start: 07-02-2025 Diabetic foot examination [facility] Start: 06-09-2025 End: 06-09-2025 Patient encounter procedure [facility] Comment on above: Medicare Wellness Start: 05-30-2025 Annual PCP Team Chronic Disease Visit Annual PCP Team Chronic Disease Visit [facility] Start: 05-30-2025 Anxiety Screening Anxiety Screening [facility] Start: 05-30-2025 BP Controlled (<130/80) BP Controlled (<130/80) [facility] Start: 05-30-2025 Covid-19 Vaccine ( season) Covid-19 Vaccine ( season) [facility] Comment on above: Postponed from 05/19/2024 (Currently [facility] eduled) Start: 05-30-2025 Covid-19 Vaccine ( season) Covid-19 Vaccine ( season) [facility] Comment on above: Postponed from 05/19/2024 (Currently [facility] eduled) Start: 05-30-2025 Depression Screening Depression Screening [facility] Start: 05-30-2025 Diabetic foot examination Diabetic Foot Exam [facility] Start: 05-30-2025 RSV Vaccine (1 - 1-dose 60+ series) RSV Vaccine (1 - 1-dose 60+ series) [facility] Comment on above: Postponed from 2011 (Insurance Cov erage) Start: 05-30-2025 RSV Vaccine (1 - Risk 60-74 years 1-dose series) RSV Vaccine (1 - Risk 60-74 years 1-dose series) [facility] Comment on above: Postponed from 2011 (Insurance Cov erage) Start: 05-27-2025 Annual PCP Team Chronic Disease Visit Annual PCP Team Chronic Disease Visit [facility] Start: 05-27-2025 BP Controlled (<130/80) BP Controlled (<130/80) [facility] Start: 05-21-2025 Hemoglobin A1c measurement HbA1C [facility] Start: 05-03-2025 BP Controlled (<130/80) BP Controlled (<130/80) [facility] Start: 04-26-2025 Creatinine measurement Serum Creatinine [facility] Start: 04-18-2025 End: 04-18-2025 Patient encounter procedure 04/18/2025 1:00 PM EDT Office Visit Podiatry [address] [place] [phone] Esvin Marcus [address] [place] [id number] 3 mo follow up Podiatry Comment on above: 3 mo follow up Start: 04-16-2025 Annual PCP Team Chronic Disease Visit Annual PCP Team Chronic Disease Visit [facility] Start: 04-16-2025 Creatinine measurement Serum Creatinine [facility] Start: 04-16-2025 Hepatitis B screening Urine Albumin:Creatinine Ratio [facility] Start: 04-16-2025 Hepatitis B surface antibody level LDL Cholesterol [facility] Start: 03-31-2025 End: 03-31-2025 Patient encounter procedure Pulmonary Medicine Comment on above: [facility] PT DOES NOT WANT KENNEDI NER APPT- [facility] Start: 03-26-2025 Glaucoma screening Dilated Retinal Exam [facility] Start: 03-24-2025 End: 03-24-2025 ambulatory Hematology/Oncology Comment on above: 4 MO OV/LABS 03/14* Start: 03-17-2025 Influenza vaccination Influenza Vaccine (#1) [facility] Comment on above: Postponed from 05/19/2024 ([facility] Start: 03-14-2025 End: 03-14-2025 ambulatory 03/14/2025 8:15 AM EDT Results Only Matthew Augustin [facility] Laboratory [address] [place] [phone] (SO)CBC/BMP/MONOCLONAL PROTEIN/KAPPA* [facility] Comment on above: (SO)CBC/BMP/MONOCLONAL PROTEIN/KAPPA* Start: 03-04-2025 Patient discharge [facility] Start: 03-04-2025 Fluoroscopic guidance O.R. Fluoro for C-Arm [facility] Start: 03-04-2025 Radex spine 1 view specify level [facility] Start: 03-04-2025 Xray thoracic spine Thoracic Spine 2 Views [facility] Start: 01-02-2025 Annual PCP Team Chronic Disease Visit Annual PCP Team Chronic Disease Visit [facility] Start: 01-02-2025 BP Controlled (<130/80) BP Controlled (<130/80) [facility] Start: 01-01-2025 Creatinine measurement Serum Creatinine [facility] Start: 12-30-2024 Covid-19 Vaccine (7 - Moderna risk ) Covid-19 Vaccine (7 - Moderna risk ) [facility] Start: 12-27-2024 End: 12-27-2024 Patient encounter procedure Radiology Comment on above: Arthrodesis status Other Spondylosis wi th myelopathy, thoracic region Start: 12-20-2024 End: 12-20-2024 Patient encounter procedure Podiatry Comment on above: Diabetic [facility]ail Care Start: 11-26-2024 BP Controlled (<130/80) BP Controlled (<130/80) [facility] Start: 11-25-2024 End: 11-25-2024 Patient encounter procedure 11/25/2024 10:00 AM EDT Office Visit Pulmonary Medicine [address] [place], [place] [phone] Hayde Ward MD [address] [address] 6 month follow up Pulmonary Medicine Comment on above: 6 month follow up Start: 11-18-2024 End: 11-18-2024 Patient encounter procedure 11/18/2024 7:40 AM EST Office Visit Family Medicine [address] [phone] Rebecca Jansen APRN.[facility] [address] [place] [address] 6 month follow up Family Medicine [facility] Comment on above: 6 month follow up Start: 11-15-2024 End: 02-14-2025 Hemoglobin A1c in Blood HEMOGLOBIN A1C Lab Routine Type 2 diabetes mellitus without complication, without long-term current use of insulin ([facility]) Expected: 11/15/2024, Expires: 02/14/2025 [facility] Comment on above: Expected: 11/15/2024, Expires: Start: 11-15-2024 End: 02-14-2025 LIPID PANEL, NONFASTING LIPID PANEL, NONFASTING Lab Routine Type 2 diabetes mellitus without complication, without long-term current use of insulin ([facility]) Essential hypertension Mixed hyperlipidemia Bilateral carotid artery stenosis Expected: 11/15/2024, Expires: 02/14/2025 [facility] Comment on above: Expected: 11/15/2024, Expires: Start: 11-15-2024 End: 11-15-2024 ambulatory 11/15/2024 8:15 AM EST Results Only [facility] [address] [place] [address] [facility] Start: 11-12-2024 End: 11-12-2024 Follow-up encounter 11/12/2024 8:40 AM EST [facility] Hematology/Oncology [address] [place] [address] [place] [address] [place] [address] 6 MO FOLLOW UP/LABS 11/12* Hematology/Oncology Comment on above: 6 MO FOLLOW UP/LABS 11/12* Start: 11-04-2024 End: 11-04-2024 ambulatory 11/04/2024 8:00 AM EST Results Only [facility] [address] [place] [address] LAB* [facility] Comment on above: LAB* Start: 10-27-2024 Creatinine measurement Serum Creatinine [facility] Start: 10-17-2024 Hemoglobin A1c measurement HbA1C [facility] Start: 10-17-2024 Screening for malignant neoplasm of colon [facility] Start: 10-10-2024 Annual PCP Team Chronic Disease Visit Annual PCP Team Chronic Disease Visit [facility] Start: 10-10-2024 Hepatitis B screening Urine Albumin:Creatinine Ratio [facility] Start: 10-10-2024 Hepatitis B surface antibody level LDL Cholesterol [facility] Start: 09-22-2024 Glaucoma screening Dilated Retinal Exam [facility] Start: 09-18-2024 Advance Directive Discussion Advance Directive Discussion [facility] Start: 09-18-2024 Medicare Advantage Annual Wellness Visit Medicare [facility] Annual Wellness Visit [facility] Start: 09-14-2024 Glaucoma screening Dilated Retinal Exam [facility] Start: 09-04-2024 Annual PCP Team Chronic Disease Visit Annual PCP Team Chronic Disease Visit [facility] Start: 08-26-2024 Covid-19 Vaccine () Covid-19 Vaccine () [facility] Start: 08-01-2024 Annual PCP Team Chronic Disease Visit Annual PCP Team Chronic Disease Visit [facility] Start: 08-01-2024 Creatinine measurement Serum Creatinine [facility] Start: 08-01-2024 Serum Creatinine Serum Creatinine [facility] Start: 07-31-2024 Influenza vaccination Lung Cancer Screening [facility] Start: 07-31-2024 Screening for malignant neoplasm of lung Lung Cancer Screening [facility] Start: 07-18-2024 End: 07-18-2024 Patient encounter procedure 07/18/2024 8:00 AM EDT Office Visit Vasculary Surgery [address] [place] [place] [address] PAD (peripheral artery disease) (HCC) [I73.9] [facility] Comment on above: PAD (peripheral artery disease) (HCC) [I 73.9] Start: 07-11-2024 End: 07-11-2024 Patient encounter procedure 07/11/2024 10:00 AM EDT Office Visit Infectious Disease [address] [place] [address] Yun Kasper MD [address] [place], [place] [phone] Pyogenic arthritis of right elbow, due to unspecified organism (HCC) [M00.9] Infectious Disease Comment on above: Pyogenic arthritis of right elbow, due t o unspecified organism (HCC) [M00.9] Start: 07-02-2024 End: 07-02-2024 Patient encounter procedure 07/02/2024 8:30 AM EDT Office Visit Podiatry [address] [place], [place] [phone] Esvin Marcus [address] [place] [address] Type 2 diabetes mellitus without complication, without [...] Low serum iron Expected: 06/28/2024, Expires: 09/27/2024 [facility] Comment on above: Expected: 06/28/2024, Expires: Start: 06-28-2024 End: 09-27-2024 Ferritin [Mass/volume] in Serum or Plasma FERRITIN Lab Routine Low serum iron Expected: 06/28/2024, Expires: 09/27/2024 [facility] Comment on above: Expected: 06/28/2024, Expires: Start: 06-28-2024 End: 09-27-2024 Iron and Iron binding capacity panel - Serum or Plasma IRON AND TIBC Lab Routine Low serum iron Expected: 06/28/2024, Expires: 09/27/2024 [facility] Work Phone: Comment on above: Expected: 06/28/2024, Expires: Start: 06-26-2024 End: 09-25-2024 C reactive protein [Mass/volume] in Serum or Plasma C-REACTIVE PROTEIN Lab Routine Pseudogout Expected: 06/26/2024, Expires: 09/25/2024 [facility] Work Phone: Comment on above: Expected: 06/26/2024, Expires: 5 Start: 06-12-2024 Annual PCP Team Chronic Disease Visit Annual PCP Team Chronic Disease Visit [facility] Start: 06-12-2024 BP Controlled (<130/80) BP Controlled (<130/80) [facility] Start: 05-30-2024 End: 05-30-2024 Patient encounter procedure 05/30/2024 9:20 AM EDT Office Visit Family Medicine [facility] [address] [place] [address] Ovidio Vincent MD [address] [place] [phone] Medicare wellness [facility] Comment on above: Medicare wellness Start: 05-29-2024 End: 05-29-2024 Patient encounter procedure Vasculary Surgery Comment on above: Vertigo [R42] Start: 05-27-2024 End: 08-26-2024 C reactive protein [Mass/volume] in Serum or Plasma [facility] Comment on above: Expected: 05/27/2024, Expires: 4 Start: 05-27-2024 End: 08-26-2024 CBC W Auto Differential panel - Blood [facility] Work Phone: Comment on above: Expected: 05/27/2024, Expires: 4 Start: 05-27-2024 End: 08-26-2024 Cobalamin (Vitamin B12) [Mass/volume] in Serum or Plasma [facility] Comment on above: Expected: 05/27/2024, Expires: 4 Start: 05-27-2024 End: 08-26-2024 Creatine kinase [Enzymatic activity/volume] in Serum or Plasma [facility] Comment on above: Expected: 05/27/2024, Expires: 4 Start: 05-27-2024 End: 08-26-2024 Ferritin [Mass/volume] in Serum or Plasma [facility] Comment on above: Expected: 05/27/2024, Expires: 4 Start: 05-27-2024 End: 08-26-2024 Folate [Mass/volume] in Serum or Plasma [facility] Comment on above: Expected: 05/27/2024, Expires: 4 Start: 05-27-2024 End: 08-26-2024 Iron and Iron binding capacity panel - Serum or Plasma [facility] Comment on above: Expected: 05/27/2024, Expires: 4 Start: 05-27-2024 End: 05-27-2024 Patient encounter procedure 05/27/2024 10:00 AM EDT Office Visit Pulmonary Medicine [address] [place], [place] [phone] Hayde Ward MD [address] [place], [place] [phone] 6 month follow up Pulmonary Medicine Comment on above: 6 month follow up Start: 05-19-2024 Covid-19 Vaccine ( season) Covid-19 Vaccine () [facility] Start: 05-19-2024 Influenza vaccination Influenza Vaccine (#1) [facility] Start: 05-03-2024 BP CONTROLLED (<130/80) BP CONTROLLED (<130/80) [facility] Start: 05-03-2024 End: 05-03-2024 ambulatory 05/03/2024 10:10 AM EDT Visit (SP) Office Hematology/Oncology [address] [place], [place] [id number] [place] [address] [place] [address] 6 MO OV/LAB 04/26* Hematology/Oncology Comment on above: 6 MO OV/LAB 04/26* Start: 04-26-2024 End: 04-26-2024 ambulatory [facility] Comment on above: LAB* Start: 04-24-2024 SERUM CREATININE SERUM CREATININE [facility] Start: 04-16-2024 End: 07-16-2024 25-hydroxyvitamin D3 [Mass/volume] in Serum or Plasma [facility] Comment on above: Expected: 04/16/2024, Expires: Start: 04-16-2024 End: 07-16-2024 CBC W Auto Differential panel - Blood [facility] Comment on above: Expected: 04/16/2024, Expires: Start: 04-16-2024 End: 07-16-2024 Cobalamin (Vitamin B12) [Mass/volume] in Serum or Plasma [facility] Comment on above: Expected: 04/16/2024, Expires: Start: 04-16-2024 End: 07-16-2024 Comprehensive metabolic 2000 panel - Serum or Plasma [facility] Comment on above: Expected: 04/16/2024, Expires: Start: 04-16-2024 End: 07-16-2024 Hemoglobin A1c in Blood [facility] Comment on above: Expected: 04/16/2024, Expires: Start: 04-16-2024 End: 07-16-2024 LIPID PANEL, NONFASTING [facility] Comment on above: Expected: 04/16/2024, Expires: Start: 04-16-2024 End: 07-16-2024 Magnesium [Mass/volume] in Serum or Plasma [facility] Comment on above: Expected: 04/16/2024, Expires: Start: 04-16-2024 End: 07-16-2024 Microalbumin/Creatinine [Mass Ratio] in Urine [facility] Comment on above: Expected: 04/16/2024, Expires: Start: 04-16-2024 End: 07-16-2024 Prostate specific Ag [Mass/volume] in Serum or Plasma [facility] Comment on above: Expected: 04/16/2024, Expires: Start: 04-16-2024 End: 07-16-2024 Urinalysis complete panel - Urine [facility] Comment on above: Expected: 04/16/2024, Expires: Start: 04-16-2024 End: 04-16-2024 Patient encounter procedure 04/16/2024 8:00 AM EDT Office Visit Family Medicine [facility] [address] [place] [address] Ovidio Vincent MD [address] [place] [address] Medicare Wellness [facility] Comment on above: Medicare Wellness Start: 04-09-2024 Hemoglobin A1c measurement HbA1C [facility] Start: 03-30-2024 ANNUAL PCP TEAM CHRONIC DISEASE VISIT ANNUAL PCP TEAM CHRONIC DISEASE VISIT [facility] Start: 03-30-2024 Hepatitis B surface antibody level LDL CHOLESTEROL [facility] Start: 03-24-2024 SERUM CREATININE SERUM CREATININE [facility] Start: 02-25-2024 ANNUAL PCP TEAM CHRONIC DISEASE VISIT ANNUAL PCP TEAM CHRONIC DISEASE VISIT [facility] Start: 02-18-2024 ANNUAL PCP TEAM CHRONIC DISEASE VISIT ANNUAL PCP TEAM CHRONIC DISEASE VISIT [facility] Start: 02-02-2024 Hemoglobin A1c measurement HbA1C [facility] Start: 02-02-2024 Hemoglobin A1c/Hemoglobin.total in Blood HbA1C [facility] Start: 12-26-2023 End: 03-26-2024 Basic metabolic 2000 panel - Serum or Plasma BASIC METABOLIC PNL Lab Routine Pre-op evaluation Type 2 diabetes mellitus with stage 3a chronic kidney disease, without long-term current use of insulin (HCC) Essential hypertension Expected: 12/26/2023, Expires: 03/26/2024 [facility] Work Phone: Comment on above: Expected: 12/26/2023, Expires: Start: 12-26-2023 End: 03-26-2024 CBC W Auto Differential panel - Blood CBC + DIFF Lab Routine Pre-op evaluation Type 2 diabetes mellitus with stage 3a chronic kidney disease, without long-term current use of insulin (HCC) Expected: 12/26/2023, Expires: 03/26/2024 [facility] Work Phone: Comment on above: Expected: 12/26/2023, Expires: Start: 12-17-2023 ANNUAL PCP TEAM CHRONIC DISEASE VISIT ANNUAL PCP TEAM CHRONIC DISEASE VISIT [facility] Start: 12-17-2023 BP CONTROLLED (<130/80) BP CONTROLLED (<130/80) [facility] Start: 11-03-2023 ANNUAL PCP TEAM CHRONIC DISEASE VISIT ANNUAL PCP TEAM CHRONIC DISEASE VISIT [facility] Start: 10-12-2023 COLORECTAL CANCER SCREENING COLORECTAL CANCER SCREENING [facility] Start: 10-12-2023 FECAL OCCULT BLOOD FECAL OCCULT BLOOD [facility] Start: 10-12-2023 Hepatitis B screening URINE ALBUMIN:CREATININE RATIO [facility] Start: 10-12-2023 Hepatitis B surface antibody level LDL CHOLESTEROL [facility] Start: 10-12-2023 Screening for malignant neoplasm of colon [facility] Start: 09-30-2023 3 comp foot exam completed DIABETIC FOOT EXAM [facility] Start: 09-30-2023 ANNUAL PCP TEAM CHRONIC DISEASE VISIT ANNUAL PCP TEAM CHRONIC DISEASE VISIT [facility] Start: 09-30-2023 Diabetic foot examination Diabetic Foot Exam [facility] Start: 09-30-2023 Hemoglobin A1c/Hemoglobin.total in Blood HBA1C [facility] Start: 09-18-2023 Advance Directive Discussion Advance Directive Discussion [facility] Start: 09-18-2023 Behavioral Health Screening Behavioral Health Screening [facility] Start: 09-18-2023 Depression Assessment Depression Assessment [facility] Start: 08-30-2023 Influenza vaccination LUNG CANCER SCREENING [facility] Start: 08-17-2023 Evaluation of diagnostic study results [facility] Start: 08-01-2023 End: 10-31-2023 Comprehensive metabolic 2000 panel - Serum or Plasma [facility] Work Phone: Comment on above: Expected: 08/01/2023, Expires: Start: 07-04-2023 ANNUAL PCP TEAM CHRONIC DISEASE VISIT ANNUAL PCP TEAM CHRONIC DISEASE VISIT [facility] Start: 05-19-2023 Covid-19 Vaccine () Covid-19 Vaccine () [facility] Start: 05-19-2023 Influenza vaccination [facility] Start: 05-07-2023 End: 07-07-2023 CBC W Auto Differential panel - Blood CBC + DIFF Lab Routine Multiple myeloma in remission (HCC) Expected: 05/07/2023, Expires: 07/07/2023 [facility] Work Phone: Comment on above: Expected: 05/07/2023, Expires: Start: 05-07-2023 End: 07-07-2023 Comprehensive metabolic 2000 panel - Serum or Plasma COMP METABOLIC PANEL Lab Routine Multiple myeloma in remission (HCC) Expected: 05/07/2023, Expires: 07/07/2023 [facility] Work Phone: Comment on above: Expected: 05/07/2023, Expires: 3 Start: 05-07-2023 End: 07-07-2023 IMMUNOFIXATION SCREEN, SERUM IMMUNOFIXATION SCREEN, SERUM Lab Routine Multiple myeloma in remission (HCC) Expected: 05/07/2023, Expires: 07/07/2023 [facility] Work Phone: Comment on above: Expected: 05/07/2023, Expires: Start: 05-07-2023 End: 07-07-2023 KAPPA/PHAN,FREE,SER KAPPA/PHAN,FREE,SER Lab Routine Multiple myeloma in remission (HCC) Expected: 05/07/2023, Expires: 07/07/2023 [facility] Work Phone: Comment on above: Expected: 05/07/2023, Expires: 3 Start: 04-23-2023 Adult depression screening assessment DEPRESSION SCREENING [facility] Start: 04-18-2023 Hepatitis B surface antibody level LDL CHOLESTEROL [facility] Start: 04-11-2023 Hemoglobin A1c/Hemoglobin.total in Blood HBA1C [facility] Start: 03-30-2023 End: 05-30-2023 LIPID PANEL, NONFASTING [facility] Work Phone: Comment on above: Expected: 03/30/2023, Expires: 3 Start: 03-22-2023 ANNUAL PCP TEAM CHRONIC DISEASE VISIT ANNUAL PCP TEAM CHRONIC DISEASE VISIT [facility] Start: 03-07-2023 End: 11-27-2023 Ct thorax w/o contrast material CT CHEST WO IVCON Radiology Routine Lung nodules Expected: 03/07/2023, Expires: 11/27/2023 [facility] Work Phone: Comment on above: Expected: 03/07/2023, Expires: Start: 02-10-2023 [facility] Start: 02-03-2023 Blood chemistry [facility] Start: 01-27-2023 Blood chemistry [facility] Start: 01-20-2023 Blood chemistry [facility] Start: 01-16-2023 Development of care plan [facility] Start: 01-14-2023 Patient discharge [facility] Start: 01-06-2023 [facility] Start: 01-06-2023 Development of care plan [facility] Start: 01-06-2023 Developing a treatment plan [facility] Start: 01-05-2023 Provision of activity privileges [facility] Start: 01-05-2023 Wound care [facility] Start: 01-05-2023 End: 01-05-2023 [facility] Start: 01-05-2023 Admission procedure [facility] Start: 01-05-2023 Measuring intake and output [facility] Start: 01-05-2023 Patient referral to dietitian [facility] Start: 01-05-2023 Referral to occupational therapist [facility] Start: 01-05-2023 Referral to service [facility] Start: 01-05-2023 Vital signs measurements [facility] Start: 01-05-2023 Patient referral to dietitian [facility] Start: 11-03-2022 End: 01-03-2023 Basic metabolic 2000 panel - Serum or Plasma BASIC METABOLIC PNL Lab Routine Bilateral leg edema Essential hypertension Expected: 11/03/2022, Expires: 01/03/2023 [facility] Work Phone: Comment on above: Expected: 11/03/2022, Expires: Start: 10-24-2022 End: 12-24-2022 [id number] [Mass/volume] in Serum or Plasma B2 MICROGLOBULIN B Lab Routine Multiple myeloma in remission (HCC) H/O autologous stem cell transplant (HCC) Expected: 10/24/2022, Expires: 12/24/2022 [facility] Work Phone: Comment on above: Expected: 10/24/2022, Expires: Start: 10-24-2022 End: 12-24-2022 CBC W Auto Differential panel - Blood CBC + DIFF Lab STAT Multiple myeloma in remission (HCC) H/O autologous stem cell transplant (HCC) Expected: 10/24/2022, Expires: 12/24/2022 [facility] Work Phone: Comment on above: Expected: 10/24/2022, Expires: 3 Start: 10-24-2022 End: 12-24-2022 Comprehensive metabolic 2000 panel - Serum or Plasma COMP METABOLIC PANEL Lab STAT Multiple myeloma in remission (HCC) H/O autologous stem cell transplant (HCC) Expected: 10/24/2022, Expires: 12/24/2022 [facility] Work Phone: Comment on above: Expected: 10/24/2022, Expires: Start: 10-24-2022 End: 12-24-2022 KAPPA/PHAN,FREE,SER KAPPA/PHAN,FREE,SER Lab Routine Multiple myeloma in remission (HCC) H/O autologous stem cell transplant (HCC) Expected: 10/24/2022, Expires: 12/24/2022 [facility] Work Phone: Comment on above: Expected: 10/24/2022, Expires: Start: 10-24-2022 End: 12-24-2022 MONOCLONAL PROT UR W/INTERP MONOCLONAL PROT UR W/INTERP Lab Routine Multiple myeloma in remission (HCC) H/O autologous stem cell transplant (HCC) Expected: 10/24/2022, Expires: 12/24/2022 [facility] Work Phone: Comment on above: Expected: 10/24/2022, Expires: 3 Start: 10-24-2022 End: 12-24-2022 MONOCLONAL PROTEIN, SERUM (BLOOD) MONOCLONAL PROTEIN, SERUM (BLOOD) Lab Routine Multiple myeloma in remission (HCC) H/O autologous stem cell transplant (HCC) Expected: 10/24/2022, Expires: 12/24/2022 [facility] Work Phone: Comment on above: Expected: 10/24/2022, Expires: 3 Start: 10-24-2022 End: 12-24-2022 PROTEIN ELECT RND UR W/INTERP PROTEIN ELECT RND UR W/INTERP Lab Routine Multiple myeloma in remission (HCC) H/O autologous stem cell transplant (HCC) Expected: 10/24/2022, Expires: 12/24/2022 [facility] Work Phone: Comment on above: Expected: 10/24/2022, Expires: 3 Start: 10-24-2022 End: 12-24-2022 PROTEIN ELECTROPHORESIS SERUM W/INTERP PROTEIN ELECTROPHORESIS SERUM W/INTERP Lab Routine Multiple myeloma in remission (HCC) H/O autologous stem cell transplant (HCC) Expected: 10/24/2022, Expires: 12/24/2022 [facility] Work Phone: Comment on above: Expected: 10/24/2022, Expires: 3 Start: 10-19-2022 Hemoglobin A1c/Hemoglobin.total in Blood HBA1C [facility] Start: 10-13-2022 COLORECTAL CANCER SCREENING COLORECTAL CANCER SCREENING [facility] Start: 10-07-2022 Hepatitis B screening URINE ALBUMIN:CREATININE RATIO [facility] Start: 10-07-2022 Hepatitis B surface antibody level LDL CHOLESTEROL [facility] Start: 10-06-2022 3 comp foot exam completed DIABETIC FOOT EXAM [facility] Start: 10-06-2022 ANNUAL PCP TEAM CHRONIC DISEASE VISIT ANNUAL PCP TEAM CHRONIC DISEASE VISIT [facility] Start: 10-06-2022 BP CONTROLLED (<130/80) BP CONTROLLED (<130/80) [facility] in Start: 09-30-2022 End: 11-30-2022 ALBUMIN/CREAT RATIO RND UR ALBUMIN/CREAT RATIO RND UR Lab Routine Type 2 diabetes mellitus without complication, without long-term current use of insulin (HCC) Expected: 09/30/2022, Expires: 11/30/2022 [facility] Work Phone: Comment on above: Expected: 09/30/2022, Expires: 3 Start: 09-30-2022 End: 11-30-2022 CBC W Auto Differential panel - Blood CBC + DIFF Lab Routine Type 2 diabetes mellitus without complication, without long-term current use of insulin (HCC) 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) Expected: 09/30/2022, Expires: 11/30/2022 [facility] Work Phone: Comment on above: Expected: 09/30/2022, Expires: 3 Start: 09-30-2022 End: 11-30-2022 Cobalamin (Vitamin B12) [Mass/volume] in Serum or Plasma VITAMIN B12 BLOOD Lab Routine Gastroesophageal reflux disease, unspecified whether esophagitis present Low serum vitamin B12 Medication management Expected: 09/30/2022, Expires: 11/30/2022 [facility] Work Phone: Comment on above: Expected: 09/30/2022, Expires: 3 Start: 09-30-2022 End: 11-30-2022 Comprehensive metabolic 2000 panel - Serum or Plasma COMP METABOLIC PANEL Lab Routine Type 2 diabetes mellitus without complication, without long-term current use of insulin ([facility]) Essential hypertension Mixed hyperlipidemia Expected: 09/30/2022, Expires: 11/30/2022 [facility] Work Phone: Comment on above: Expected: 09/30/2022, Expires: 3 Start: 09-30-2022 End: 11-30-2022 Hemoglobin A1c in Blood HGB A1C Lab Routine Type 2 diabetes mellitus without complication, without long-term current use of insulin (HCC) Expected: 09/30/2022, Expires: 11/30/2022 [facility] Work Phone: Comment on above: Expected: 09/30/2022, Expires: 3 Start: 09-30-2022 End: 11-30-2022 Lipid 1996 panel - Serum or Plasma LIPID PANEL BASIC Lab Routine Type 2 diabetes mellitus without complication, without long-term current use of insulin (HCC) Essential hypertension Mixed hyperlipidemia Expected: 09/30/2022, Expires: 11/30/2022 [facility] Work Phone: Comment on above: Expected: 09/30/2022, Expires: 3 Start: 09-30-2022 End: 11-30-2022 Magnesium [Mass/volume] in Serum or Plasma MAGNESIUM BLD Lab Routine Gastroesophageal reflux disease, unspecified whether esophagitis present Hypomagnesemia Medication management Expected: 09/30/2022, Expires: 11/30/2022 [facility] Work Phone: Comment on above: Expected: 09/30/2022, Expires: 3 Start: 09-30-2022 End: 11-30-2022 Prostate specific Ag [Mass/volume] in Serum or Plasma PSA/PROSTSPECAG DIAG Lab Routine Prostate disorder Expected: 09/30/2022, Expires: 11/30/2022 [facility] Work Phone: Comment on above: Expected: 09/30/2022, Expires: 3 Start: 09-30-2022 End: 11-30-2022 Urinalysis complete panel - Urine URINALYSIS, WITH MICROSCOPIC Lab Routine Type 2 diabetes mellitus without complication, without long-term current use of insulin ([facility]) Essential hypertension Mixed hyperlipidemia Expected: 09/30/2022, Expires: 11/30/2022 [facility] Work Phone: Comment on above: Expected: 09/30/2022, Expires: 3 Start: 09-25-2022 Colonoscopy COLONOSCOPY [facility] Start: 09-25-2022 COLORECTAL CANCER SCREENING COLORECTAL CANCER SCREENING [facility] Start: 09-18-2022 ADVANCE DIRECTIVE DISCUSSION ADVANCE DIRECTIVE DISCUSSION [facility] Start: 09-18-2022 DEPRESSION ASSESSMENT DEPRESSION ASSESSMENT [facility] Start: 09-09-2022 Hepatitis C antibody, confirmatory test DILATED RETINAL EXAM [facility] Start: 08-29-2022 COVID-19 VACCINE (6 - Moderna risk series) COVID-19 VACCINE (6 - Moderna risk series) [facility] Start: 07-23-2022 End: 01-20-2023 Echocardiography ECHO Cardiology Routine Pulmonary arterial hypertension (HCC) Expected: 07/23/2022, Expires: 01/20/2023 [facility] Work Phone: Comment on above: Expected: 07/23/2022, Expires: 3 Start: 07-10-2022 Adult depression screening assessment DEPRESSION SCREENING [facility] Start: 05-19-2022 Influenza vaccination INFLUENZA (#1) [facility] Start: 04-28-2022 COVID-19 VACCINE (5 - Booster for Moderna series) COVID-19 VACCINE (5 - Booster for Moderna series) [facility] Start: 04-21-2022 End: 05-07-2023 XR HAND GENERAL 3V PA/LAT/OBL LEFT XR HAND GENERAL 3V PA/LAT/OBL LEFT Radiology Routine Pain of left hand Expected: 04/21/2022, Expires: 05/07/2023 [facility] Work Phone: Comment on above: Expected: 04/21/2022, Expires: 3 Start: 04-06-2022 Hemoglobin A1c/Hemoglobin.total in Blood HBA1C [facility] Start: 03-22-2022 End: 05-22-2022 Cobalamin (Vitamin B12) [Mass/volume] in Serum or Plasma VITAMIN B12 BLOOD Lab Routine Low serum vitamin B12 Expected: 03/22/2022, Expires: 05/22/2022 [facility] Work Phone: Comment on above: Expected: 03/22/2022, Expires: 2 Start: 03-22-2022 End: 05-22-2022 Comprehensive metabolic 2000 panel - Serum or Plasma COMP METABOLIC PANEL Lab Routine Type 2 diabetes mellitus without complication, without long-term current use of insulin (HCC) Expected: 03/22/2022, Expires: 05/22/2022 [facility] Work Phone: Comment on above: Expected: 03/22/2022, Expires: 2 Start: 03-22-2022 End: 05-22-2022 Hemoglobin A1c in Blood HGB A1C Lab Routine Type 2 diabetes mellitus without complication, without long-term current use of insulin (HCC) Expected: 03/22/2022, Expires: 05/22/2022 [facility] Work Phone: Comment on above: Expected: 03/22/2022, Expires: 2 Start: 03-22-2022 End: 05-22-2022 LIPID PANEL, NONFASTING LIPID PANEL, NONFASTING Lab Routine Mixed hyperlipidemia Expected: 03/22/2022, Expires: 05/22/2022 [facility] Work Phone: Comment on above: Expected: 03/22/2022, Expires: 2 Start: 03-22-2022 End: 05-22-2022 Magnesium [Mass/volume] in Serum or Plasma MAGNESIUM BLD Lab Routine Hypomagnesemia Expected: 03/22/2022, Expires: 05/22/2022 [facility] Work Phone: Comment on above: Expected: 03/22/2022, Expires: 2 Start: 02-21-2022 COVID-19 VACCINE (5 - Booster for Moderna series) COVID-19 VACCINE (5 - Booster for Moderna series) [facility] Start: 09-18-2021 ADVANCE DIRECTIVE DISCUSSION ADVANCE DIRECTIVE DISCUSSION [facility] Start: 09-18-2021 DEPRESSION ASSESSMENT DEPRESSION ASSESSMENT [facility] Start: 10-22-2020 Influenza vaccination LUNG CANCER SCREENING [facility] Start: 12-22-2019 Hepatitis B Vaccine (3 of 3 - Hep B Twinrix risk 3-dose series) Hepatitis B Vaccine (3 of 3 - Hep B Twinrix risk 3-dose series) [facility] Start: 09-25-2013 Colonoscopy COLONOSCOPY [facility] Start: 09-25-2013 Screening for malignant neoplasm of colon Colonoscopy [facility] Start: 12-29-2012 FECAL OCCULT BLOOD FECAL OCCULT BLOOD [facility] Start: 2011 RSV Vaccine (1 - 1-dose 60+ series) RSV Vaccine (1 - 1-dose 60+ series) [facility] Start: 1996 COLOGUARD (FIT-DNA) COLOGUARD (FIT-DNA) [facility] Start: [address] COLONOGRAPHY [facility] Start: 1996 Screening for malignant neoplasm of colon [facility] Start: 1996 SIGMOIDOSCOPY SIGMOIDOSCOPY [facility] Start: 1981 Zoledronic acid therapy ALPHA-1 ANTITRYPSIN DEFICIENCY SCREENING [facility] Start: 1969 Anxiety Screening Anxiety Screening [facility] Start: 1969 Depression Screening Depression Screening [facility] End: 05-03-2025 Basic metabolic 2000 panel - Serum or Plasma BASIC METABOLIC PANEL Lab Routine Multiple myeloma in remission (HCC) Every 6 months for 2 Occurrences starting 05/03/2024 until 05/03/2025 [facility] Comment on above: Every 6 months for 2 Occurrences startin g 05/03/2024 until 05/03/2025 End: 11-12-2025 Basic metabolic 2000 panel - Serum or Plasma BASIC METABOLIC PANEL Lab Routine Multiple myeloma in remission (HCC) Every 4 months for 3 Occurrences starting 11/12/2024 until 11/12/2025 [facility] Comment on above: Every 4 months for 3 Occurrences startin g 11/12/2024 until 11/12/2025 End: 05-03-2025 CBC W Auto Differential panel - Blood COMPLETE BLOOD COUNT AND DIFFERENTIAL Lab Routine Multiple myeloma in remission (HCC) Every 6 months for 2 Occurrences starting 05/03/2024 until 05/03/2025 [facility] Work Phone: Comment on above: Every 6 months for 2 Occurrences startin g 05/03/2024 until 05/03/2025 End: 11-12-2025 CBC W Auto Differential panel - Blood COMPLETE BLOOD COUNT AND DIFFERENTIAL Lab Routine Multiple myeloma in remission (HCC) Every 4 months for 3 Occurrences starting 11/12/2024 until 11/12/2025 [facility] Work Phone: Comment on above: Every 4 months for 3 Occurrences startin g 11/12/2024 until 11/12/2025 COVID & INFLUENZA A/ B & RSV NAAT, ROUTINE COVID & INFLUENZA A/B & RSV NAAT, ROUTINE Microbiology Routine URI, acute 05/25/2023 1:21 PM EDT [facility] Work Phone: End: 08-10-2024 Ct thorax w/o contrast material CT CHEST WO IVCON Radiology Routine Lung nodules 1 Occurrences starting 07/12/2023 until 08/10/2024 [facility] Work Phone: Comment on above: 1 Occurrences starting 07/12/2023 until 08/10/2024 Ct thorax w/o contra st material CT CHEST WO IVCON Radiology Routine Lung nodules 07/31/2023 10:48 AM EST [facility] Work Phone: End: 03-20-2024 ECG COMPLETE ECG COMPLETE ECG Routine Irregular heart beat 1 Occurrences starting 03/20/2023 until 03/20/2024 [facility] Work Phone: Comment on above: 1 Occurrences starting 03/20/2023 until 03/20/2024 ECG COMPLETE ECG COMPLETE ECG 03/22/2023 2:47 PM EDT [facility] Hemoglobin.gastroint lukas al.lower [Presence] in Stool by Immunoassay FECAL OCCULT BLOOD TEST Lab Routine Screening for colon cancer Ordered: 09/30/2022 [facility] Work Phone: Comment on above: Ordered: 09/30/2022 Hemoglobin.gastroint lukas al.lower [Presence] in Stool by Immunoassay IMMUNOCHEMICAL FECAL OCCULT BLOOD TEST Lab Routine Screening for colon cancer Ordered: 11/18/2024 [facility] Work Phone: Comment on above: Ordered: 11/18/2024 End: 05-03-2025 KAPPA/PHAN,FREE,SER KAPPA/PHAN,FREE,SER Lab Routine Multiple myeloma in remission (HCC) Every 6 months for 2 Occurrences starting 05/03/2024 until 05/03/2025 [facility] Comment on above: Every 6 months for 2 Occurrences startin g 05/03/2024 until 05/03/2025 End: 11-12-2025 KAPPA/PHAN,FREE,SER KAPPA/PHAN,FREE,SER Lab Routine Multiple myeloma in remission (HCC) Every 4 months for 3 Occurrences starting 11/12/2024 until 11/12/2025 [facility] Comment on above: Every 4 months for 3 Occurrences startin g 11/12/2024 until 11/12/2025 End: 05-03-2025 MONOCLONAL PROTEIN, SERUM (BLOOD) MONOCLONAL PROTEIN, SERUM (BLOOD) Lab Routine Multiple myeloma in remission (HCC) Every 6 months for 2 Occurrences starting 05/03/2024 until 05/03/2025 [facility] Comment on above: Every 6 months for 2 Occurrences startin g 05/03/2024 until 05/03/2025 End: 11-12-2025 MONOCLONAL PROTEIN, SERUM (BLOOD) MONOCLONAL PROTEIN, SERUM (BLOOD) Lab Routine Multiple myeloma in remission (HCC) Every 4 months for 3 Occurrences starting 11/12/2024 until 11/12/2025 [facility] Comment on above: Every 4 months for 3 Occurrences startin g 11/12/2024 until 11/12/2025 End: 05-16-2025 MR Brain WO contrast MRI BRAIN WO IVCON Radiology Routine Vertigo 1 Occurrences starting 04/16/2024 until 05/16/2025 [facility] Comment on above: 1 Occurrences starting 04/16/2024 until 05/16/2025 MR Lumbar spine [facility] MR Thoracic spine [facility] Patient Education [facility] Work Phone: Patient referral [facility] Work Phone: End: 05-03-2025 PROTEIN ELECTROPHORESIS SERUM W/INTERP PROTEIN ELECTROPHORESIS SERUM W/INTERP Lab Routine Multiple myeloma in remission (HCC) Every 6 months for 2 Occurrences starting 05/03/2024 until 05/03/2025 [facility] Comment on above: Every 6 months for 2 Occurrences startin g 05/03/2024 until 05/03/2025 End: 11-12-2025 PROTEIN ELECTROPHORESIS SERUM W/INTERP PROTEIN ELECTROPHORESIS SERUM W/INTERP Lab Routine Multiple myeloma in remission (HCC) Every 4 months for 3 Occurrences starting 11/12/2024 until 11/12/2025 [facility] Comment on above: Every 4 months for 3 Occurrences startin g 11/12/2024 until 11/12/2025 End: 10-30-2023 Radex spine lumbosacral minimum 4 views XR LUMBAR PARS DEFECT 4V AP/LAT/BOTH OBL Radiology Routine Spinal stenosis, lumbar region, without neurogenic claudication 1 Occurrences starting 09/30/2022 until 10/30/2023 [facility] Work Phone: Comment on above: 1 Occurrences starting 09/30/2022 until 10/30/2023 End: 05-26-2023 Radiologic examination osseous survey compl XR BONE SURVEY ROUTINE Radiology Routine Multiple myeloma in remission (HCC) H/O autologous stem cell transplant (HCC) 1 Occurrences starting 04/26/2022 until 05/26/2023 [facility] Work Phone: Comment on above: 1 Occurrences starting 04/26/2022 until 05/26/2023 End: 10-27-2022 Radiologic examination osseous survey compl [facility] Work Phone: Comment on above: 1 Occurrences starting 10/27/2022 until 10/27/2022 ROUTINE FLU A/B + RSV ROUTINE FL U A/B + RSV Lab Routine URI, acute 05/25/2023 1:21 PM EDT [facility] Work Phone: SARS-CoV-2 (COVID-19 ) RNA [Presence] in Respiratory specimen by JUANA with probe detection COVID NAAT, ROUTINE Microbiology Routine URI, acute 05/25/2023 1:21 PM EDT [facility] Work Phone: End: 02-19-2023 SPIROMETRY BASELINE ONLY SPIROMETRY BASELINE ONLY PFT Routine 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[facility]) 1 Occurrences starting 01/20/2022 until 02/19/2023 [facility] Work Phone: Comment on above: 1 Occurrences starting 01/20/2022 until 02/19/2023 End: 04-16-2025 US Carotid arteries - bilateral US CAROTID ARTERIES [facility] V[facility] Lab Routine Vertigo 1 Occurrences starting 04/16/2024 until 04/16/2025 [facility] Work Phone: Comment on above: 1 Occurrences starting 04/16/2024 until 04/16/2025 [facility] End: 07-02-2025 .doppler Extremity arteries - bilateral for physiologic artery study PVR ANK PRESS [facility] V[facility] Lab Routine PAD (peripheral artery disease) (HCC) 1 Occurrences starting 07/02/2024 until 07/02/2025 [facility] Work Phone: Comment on above: 1 Occurrences starting 07/02/2024 until 07/02/2025 XR HAND GENERAL 3V PA/LAT/OBL LEFT XR HAND GENERAL 3V PA/LAT/OBL LEFT Radiology Routine Pain of left hand 04/18/2022 8:09 AM EDT [facility] Work Phone: [facility] Immunizations Immunization Date Immunization Notes Care Provider [facility] 07-01-2024 COVID-19 vaccine, ag e 12+ yr ([employer]IRNAT[employer]) Ovidio Vincent MD Work Phone: [facility] 07-01-2024 influenza, high dose seasonal, preservative-free Ovidio Vincent MD Work Phone: [facility] 07-12-2023 influenza (HD-IIV4) vaccine, age 65+ yr, high dose, quadrivalent, PF (FLUZONE HIGH-DOSE) Loretta Leon PA-C Work Phone: [facility] 07-12-2023 influenza virus vacc ine, unspecified formulation Ovidio Vincent MD Work Phone: [facility] 09-05-2022 zoster vaccine recombinant Ovidio Vincent MD Work Phone: [facility] 07-04-2022 COVID-19 booster vaccine, age 12+ yr, bivalent (PFIZER-BIONTECH) Ovidio Vincent MD Work Phone: [facility] 06-14-2022 influenza (aIIV4) vaccine, age 65+ yr, quadrivalent, PF (FLUAD QUADRIVALENT) Ramu Alanis MA [facility] 06-14-2022 Influenza, high dose seasonal Dr. Ovidio Vincent MD Work Phone: [facility] 06-14-2022 influenza, high dose seasonal, preservative-free [facility] 06-14-2022 zoster vaccine recombinant Ovidio Vincent MD Work Phone: [facility] 06-14-2022 influenza virus vacc ine, unspecified formulation Ovidio Vincent MD Work Phone: [facility] 12-27-2021 COVID-19 vaccine, fu ll dose (MODERNA) Nargis Ortega RN [facility] 07-21-2021 Covid (Moderna) [facility] 06-11-2021 influenza, high-dose , quadrivalent vaccine (FLUZONE HIGH DOSE QUADRIVALENT) Nargis Ortega RN [facility] 04-07-2021 zoster vaccine recombinant Nargis Ortega RN [facility] 03-15-2021 pneumococcal polysaccharide vaccine, 23 valent Nargis Ortega RN [facility] 02-01-2021 zoster vaccine recombinant Nargis Ortega RN [facility] 01-11-2021 SHINGRIX, PF, 50 mcg /0.5 mL injection Nargis Ortega [facility] Work Phone: Comment on above: Inject 0.5 mL intram uscularly now and repeat 2nd dose in 2-6 months 01-07-2021 COVID-19 vaccine, fu ll dose (MODERNA) Nargis Ortega RN [facility] 12-10-2020 COVID-19 vaccine, fu ll dose (MODERNA) Nargis Ortega RN [facility] 12-03-2020 Covid (Moderna) [facility] 06-11-2020 influenza, high dose seasonal, preservative-free Nargis Ortega RN [facility] 06-11-2020 unknown vaccine or immune globulin Ovidio Vincent MD Work Phone: [facility] 09-23-2019 haemophilus influenz ae type b vaccine, PRP-T conjugate Nargis Ortega RN [facility] 09-23-2019 meningococcal polysaccharide (groups A, C, Y and W-135) diphtheria toxoid conjugate vaccine (MCV4P) Nargis Ortega [facility] 09-23-2019 pneumococcal conjuga te vaccine, 13 valent Nargis Ortega [facility] 09-23-2019 tetanus and diphther ia toxoids, adsorbed, preservative free, for adult use (5 Lf of tetanus toxoid and 2 Lf of diphtheria toxoid) Nargis Ortega [facility] 07-23-2019 haemophilus influenz ae type b vaccine, PRP-OMP conjugate Nargis Ortega [facility] 07-23-2019 hepatitis A and hepatitis B vaccine Nargis Ortega [facility] 07-23-2019 pneumococcal conjuga te vaccine, 13 valent Nargis Ortega [facility] 07-23-2019 tetanus and diphther ia toxoids, adsorbed, preservative free, for adult use (5 Lf of tetanus toxoid and 2 Lf of diphtheria toxoid) Nargis Ortega [facility] 07-15-2019 influenza, high dose seasonal, preservative-free Nargis Ortega [facility] 07-30-2018 haemophilus influenz ae type b vaccine, PRP-OMP conjugate Nargis Ortega [facility] 07-30-2018 hepatitis A and hepatitis B vaccine Nargis Ortega [facility] 07-30-2018 influenza, high dose seasonal, preservative-free Nargis Ortega [facility] 07-30-2018 pneumococcal conjuga te vaccine, 13 valent Nargis Ortega [facility] 07-30-2018 tetanus toxoid, redu kobe diphtheria toxoid, and acellular pertussis vaccine, adsorbed Nargis Ortega [facility] 06-26-2017 influenza, high dose seasonal, preservative-free Nargis Ortega [facility] 07-07-2016 influenza, high dose seasonal, preservative-free Nargis Ortega [facility] Work Phone: 07-07-2016 pneumococcal conjuga te vaccine, 13 valent Nargis Ortega [facility] Work Phone: 2015 influenza, seasonal, injectable Nargis Ortega [facility] Work Phone: 07-04-2014 influenza, seasonal, injectable Nargis Ortega RN [facility] 08-14-2012 zoster vaccine, live Nargis Ortega RN [facility] 12-27-2011 tetanus toxoid, redu kobe diphtheria toxoid, and acellular pertussis vaccine, adsorbed Nargis Ortega RN [facility] 07-12-2008 influenza virus vacc ine, whole virus Ovidio Vincent MD Work Phone: [facility] 03-18-1996 diphtheria and tetan us toxoids, adsorbed for pediatric use Nargis Ortega RN [facility] Work Phone: 12-06-1994 hepatitis B immune globulin Nargis Ortega RN [facility] Work Phone: 06-23-1994 hepatitis B immune globulin Nargis Ortega RN [facility] Work Phone: 05-16-1994 hepatitis B immune globulin Nargis Ortega RN [facility] Work Phone: Payers Date Payer Category Payer Self-pay [id number] 2021 Medicare [employer] MEDICARE A ETNA MEDICARE PPO [id number] 2021-Present [phone] [address] [place] [address] PPO [id number] 2021 Medicare [employer] MEDICARE A ETNA MEDICARE PPO [id number] 2021-Present [phone] [address] [place] [address] PPO [id number] 2021 Medicare (Managed Care) [employer] [place] [id number] 2021 Private Health Insurance [facility] [id number] 2011 Unknown [id number] Unknown [id number]. 462 Unknown [id number] [id number]. 462 Unknown [id number] [id number]. 462 Unknown [id number] [id number]. 462 Unknown [id number] [id number]. 462 Unknown [id number] [id number]. 462 Unknown [id number] [id number]. 462 Unknown [id number] 2.16.840.1.594590.3.579.2. 462 Unknown [id number] [id number]. 462 Unknown [id number] [id number]. 462 Unknown [id number] [id number]. 462 Unknown [id number] [id number]. 462 Unknown [id number] [id number]. 462 Unknown [id number] [id number]. 462 Unknown [id number] [id number]. 462 Unknown [id number] [id number]. 462 Unknown [id number]. 462 Social History Date Type Detail Facility Start: 04-09-2012 End: 05-27-2024 Tobacco smoking status NHIS Ex-smoker [facility] Start: 1971 End: 12-09-2011 History of tobacco use Current smoker [facility] Start: 1971 End: 12-09-2011 History of tobacco use Pipe Smoker [facility] Start: 04-09-2012 End: 02-17-2023 Cigarettes smoked current (pack per day) - Reported 0.25 [facility] Start: 04-09-2012 End: 05-27-2024 Tobacco use and exposure Smokeless tobacco non-user [facility] Start: 12-20-2021 End: 03-04-2025 Alcohol intake Current drinker of alcohol (finding) [facility] Start: 07-14-2020 End: 09-23-2022 History SDOH Alcohol Frequency 3 [facility] Start: 07-14-2020 End: 09-23-2022 History SDOH Alcohol Std Drinks 1 [facility] Start: 03-27-2018 History SDOH Alcohol Comment rare [facility] Start: 05-18-2020 End: 03-21-2022 History SDOH Social Connections Phone 5 [facility] Start: 05-18-2020 End: 09-23-2022 History SDOH Social Connections Get Together 4 [facility] Start: 05-18-2020 End: 09-23-2022 History SDOH Stress 2 [facility] Start: 09-18-2019 Education 17 [facility] Start: 04-19-2021 End: 07-04-2022 Tobacco Comment 1/4 pack of cigs; pipe smoker. None of either since cessation. No ETS in childhood home. [facility] Start: 1950 Sex Assigned At Not on file [facility] Start: 10-12-2017 End: 08-17-2023 Tobacco smoking status NHIS Unknown if ever smoked [facility] Start: 1950 Sex Assigned At Male [facility] Start: 01-10-2022 End: 08-08-2022 Exposure to SARS-CoV-2 (event) Not sure [facility] Start: 03-19-2022 End: 03-29-2022 Exposure to SARS-CoV-2 (event) Unable to assess [facility] Work Phone: Start: 1971 End: 12-09-2011 History of tobacco use Cigarette Smoker [facility] Work Phone: Start: 08-08-2022 Tobacco Comment 1/4 pack of cigs; pipe smoker. None of either since cessation. No ETS in childhood home. Smoked up to one ppd [facility] Start: 09-23-2022 History SDOH Alcohol Std Drinks 0 [facility] Start: 09-23-2022 History SDOH Social Connections Meetings 98 [facility] Start: 09-23-2022 End: 02-17-2023 Social connection and isolation panel [facility] Active Member of [facility] bs or Organizations Not on file [facility] Are you now , , , , never or living with a partner? [facility] How often do you hav e 6 or more drinks on 1 occasion? Never [facility] Do you feel stress - tense, restless, nervous, or anxious, or unable to sleep at night because your mind is troubled all the time - these days [OSQ] Not at all [facility] (I/We) worried wheth er (my/our) food would run out before (I/we) got money to buy more. Never true [facility] In the past 12 month s, was there a time when you were not able to pay the mortgage or rent on time? No [facility] Start: 03-17-2022 Gender identity Identifies as male gender (finding) [facility] Start: 03-17-2022 Sexual orientation Heterosexual (finding) [facility] Do you belong to any clubs or organizations such as orthodoxy groups, unions, fraternal or athletic groups, or school groups? Yes [facility] How often to you hav e a drink containing alcohol? Monthly or less [facility] Start: 10-10-2023 Alcohol Comment seldom [facility] How many standard dr inks containing alcohol do you have on a typical day? 1 or 2 [facility] Goals Date Patient Goal Desired Activity /State [...] score [AUDIT-C] 1 11/12/19 7:31 AM EST Monserrat Nice [facility] 11-12-2024 Within the last year , have you been humiliated or emotionally abused in other ways by your partner or ex-partner? No 11/12/2024 7:31 AM EST [email or web address] [facility] 11-12-2024 Within the last year , have you been afraid of your partner or ex-partner? No 11/12/2024 7:31 AM EST UserZot No [facility] 11-12-2024 Within the last year , have you been raped or forced to have any kind of sexual activity by your partner or ex-partner? No 11/12/2024 7:31 AM EST User, [email or web address] No [facility] 11-12-2024 Within the last year , have you been kicked, hit, slapped, or otherwise physically hurt by your partner or ex-partner? No 11/12/2024 7:31 AM EST User, [email or web address] No [facility] 11-12-2024 How often to you hav e a drink containing alcohol? Monthly or less 11/12/2024 7:31 AM EST User, [email or web address] Monthly or less [facility] 11-12-[address] inks containing alcohol do you have on a typical day? 1 or 2 11/12/2024 7:31 AM EST User, [email or web address] 1 or 2 [facility] 11-12-2024 How often do you hav e 6 or more drinks on 1 occasion? Never 11/12/2024 7:31 AM EST User, [email or web address] Never [facility] 01-14-2023 Functional status Chair [facility] Work Phone: 01-13-2023 Functional status With Assist of 1 [facility] Work Phone: 10-25-2019 Are you deaf, or do you have serious difficulty hearing No 10/25/2019 5:01 PM Trinidad Lopez, ALICIA No [facility] 10-25-2019 Are you blind, or do you have serious difficulty seeing, even when wearing glasses No 10/25/2019 5:01 PM Trinidad Lopez, ALICIA No [facility] 10-25-2019 Do you have serious difficulty walking or climbing stairs No 10/25/2019 5:01 PM Trinidad Lopez, ALICIA No [facility] 10-25-2019 Do you have difficul ty dressing or bathing No 10/25/2019 5:01 PM Trinidad Lopez, ALICIA No [facility] 10-25-2019 Because of a physica l, mental, or emotional condition, do you have difficulty doing errands alone such as visiting a physician's office or shopping No 10/25/2019 5:01 PM Trinidad Lopez RN No [facility] Mental Status Date Assessment Result Facility 03-04-2025 Cognitive function Level Of Cons ciousness Alert;Appropriate;Follows Commands [facility] Work Phone: 03-04-2025 Cognitive function Voice/Name [facility] Work Phone: 03-22-2023 Cognitive function Level Of Cons ciousness Awake;Alert;Appropriate;Fol lows Commands [facility] Work Phone: 02-17-2023 Cognitive function Level Of Cons ciousness Awake;Alert;Appropriate;Fol lows Commands;Responds to vocal stimuli [facility] Work Phone: 02-10-2023 Cognitive function Level Of Cons ciousness Awake;Alert;Appropriate [facility] Work Phone: 01-14-2023 Cognitive function Voice/Name [facility] Work Phone: 01-13-2023 Cognitive function Voice/Name [facility] Work Phone: 10-25-2019 Because of a physica l, mental, or emotional condition, do you have serious difficulty concentrating, remembering, or making decisions No 10/25/2019 5:01 PM Trinidad Lopez RN No [facility] Clinical Notes 10-23-2019 to 03-05-2025 Ramu Alanis MA - 03/05/2025 1:32 PM EDT Note Date & Type Note Facility 03-05-2025 History of Presen t illness Narrative Scan on 03/04/2025 11:32 AM by ProviderJustyn PA-C: Orthopedics Scan on 03/05/2025 3:37 AM by ProviderJustyn PA-C: Orthopedics Ramu Alanis MA documented in this encounter [facility] 03-04-2025 Consult note Note Date/Time March 04, 2025 11:16am [facility] Medical Records Department [address] [place] [address] Anesthesia Postop Eval I 03/04/25 1115 MR#: [id number] Acct: [id number] Name: RONNIE YARBROUGH APARNA Rep #:[id number] : 1950 74 From: Ammon Lopez BIOLOGY MANAGER PCP: Dr. Ovidio Vincent MD Status:REG SDC Y Race: C Location: [place] [address] Anesthesia: Postop Eval I Current Vital Signs Temperature: 97 F Pulse Rate: 68 Blood Pressure: 118/74 Respiratory Rate: 16 Pulse Ox: 94 Oxygen Delivery Method: Room Air Fraction of Inspired Oxygen (FIO2): 21 Assessment Airway patent: Yes Spontaneous unlabored respirations: Yes Mental status: Awake and Calm nausea: No Vomiting: No Anesthesia Complication: No Fluid Hydration Crystalloid volume administer (ml): 1,300 Colloids volume administered (ml): 100 Total IV fluid infused: 1,400 Progress Note Post-operative progress note: VSS see PACU notes for details Anesthesia document: Postop Eval 1 completed: Yes 03/04/251115 <Electronically signed by Ammon Ponce II, CRNA> Date _ Ammon Ponce II, CRNA Cosigner Signature: Date CC: ~ Signed [facility] Work Phone: 1(889) 887-340306-17-2025 History and physical note [facility] Medical Records Department [address] [place] [address] History & Physical Exam 03/04/25 0716 MR#: [id number] Acct: [id number] Name: RONNIE YARBROUGH Rep #:[id number] : 1950 74 From: Caio Gomez MD PCP: Dr. Ovidio Vincent MD Status:REG [facility] Location: [facility] History and Physical MR#: [id number] Acct: [id number] Name: RONNIE YARBROUGH Rep #: [id number] : 1950 Provider: Dr. Caio Gomez MD Age/Sex: 74/M Location: [facility] Status: Signed Intake Vital Signs 12/05/2509:30 02/18/2508:16 02/21/2509:53 Height 5 ft 9 in 5 ft [...] tablet,delayed 81 mg PO DAILY Heart 01/05/23 02/21/25 H istory release calcium carb-ergocalciferol (vit 200 tab PO DAILY Supplment 01/05/2303/12 History D2) 600 mg calcium-200 unit tablet cholecalciferol (vitamin D3) 50 50 mcg PO DAILY Supplement 01/05/2303/12 History mcg (2,000 unit) tablet cyanocobalamin (vitamin B-12) 1,000 mcg PO DAILY Supplement 01/05/23 0 02/21/25 History 1,000 mcg capsule losartan 25 mg tablet 12.5 mg PO DAILY BP 01/05/23 02/21/25 Hi story metformin 1,000 mg tablet 1,000 mg PO BID DM 01/05/23 02/21/25 His tory multivitamin 1 tab PO DAILY Supplement 01/05/2302/21 History omeprazole 40 mg capsule,delayed 40 mg PO DAILY GERD 01/05/23 02/21/25 Hi story release dapagliflozin propanediol 10 mg 10 mg PO DAILY 05/02/23 02/21/25 History tablet (Farxiga) fluticasone fur. 100 mcg-umeclid 1 inh inhalation DAILY 05/02/23 02/21/25 History 62.5 mcg-vilant 25 mcg inhalat.powder (Trelegy Ellipta) torsemide 20 mg tablet 20 mg PO DAILY 08/17/23 02/21/25 History atorvastatin 40 mg tablet 40 mg PO QDAY 03/06/24 02/21/25 History terbinafine HCl 250 mg tablet 250 mg PO DAILY Antifungal 03/06/2403/12 History magnesium oxide 250 mg PO BID 08/08/24 02/21/25 History oxycodone 5 mg tablet 5 mg PO TID PRN pain 12/05/24 02/21/25 H istory carvedilol 12.5 mg tablet 12.5 mg PO BID #180 tabs 12/20/24 Rx dulaglutide 3 mg/0.5 mL 3 mg subcut QWEEK 02/04/25 02/21/25 Hist ory subcutaneous pen injector (Trulicity) Have you fallen [...] Father Cancer, Onset Age: 52 Pancreatic cancer. DiabetesSister DiabetesGrandmother Diabetes Social History household members: spouse Smoking [...] [facility]. His last back surgery was about 3 years ago and he had an MRI after that surgery that showed c ompression and a fracture. He is unable to recall the exact dates and what surgeries were done.Patient denies radicular symptoms. Denies numbness, tinglingor other associated symptoms. Patient denieshaving leg weakness but does have some issues with his balance. He has been having balance issues for 3-4 years which has worsened some and he uses a cane to ambulate. He has done PT in the past for before and after his surgeries but is unable to recall how long ago. Monses take Oxycodone 5mg for pain 3 times [...] scar throughout the lumbar spine butpossibly also goingto the lower thoracic spine. There is midline [...] noticed in the recent MRI throughout the thoracicspine. As discussed at previous visits, patient will undergo paddle lead placement of spinal cord stimulator to help with the pain as recommended by his pain physician. Since she has not had a successful trial, it will be a paddle trial with asecond stage impulse generator placement. Reviewed the benefitsand risks of surgery. Risks of surgery include bleeding, infection, hematoma, DVT, pulmonary embolism, persistent pain. Patient understands and agrees to proceed with surgery. Explained in detail theprocedure of the paddle lead placement. Discussed post surgery restrictions such as no bending, lifting, or twisting. Answered all questions that he had today in preparation for surgery. Consent was signed. Patient is in agreement. 03/04/25715 Cosigner Signature (if applicable): CC: Dr. Caio Gomez MD; Dr. Ovidio Vincent MD~ Signed [facility]06-17-2025 Procedure note [facility] Medical Records Department [address] [place] [address] Operative Report 03/04/25 1107 MR#: [id number] Acct: [id number] Name: RONNIE YARBROUGH Rep #:[id number] : 1950 74 From: Caio Gomez MD PCP: Dr. Ovidio Vincent MD Status:[facility] Location: [facility]-1 Procedures Musculoskeletal 20xxx-29xxx: Other Procedure See Report Operative Report (Standard) Operative Information Date of Procedure: 03/04/25 Pre-Operative Diagnosis: Chronic low back pain, prior L2-S1 fusion, T11-12 laminectomy Post-Operative Diagnosis: Same Surgery/Procedure Performed: Spinal cord stimulator paddle lead trial, T9-10 andT8-9 laminotomies punch molder: Yes Dry Sand Molder: Belinda Snow Tasks completed by first officer: Closing, Removing tissue, Hemostasis: Electrocautery and Retracting Type of Anesthesia: General RN Documented Start/Stop Times: Operation Date: 03/04/25 07:30 Case Time Into Pre-Op 03/04/25 05:34 Out of Pre-Op 03/04/25 07:27 Anesthesia Start 03/04/25 07:30 Into Room 03/04/25 07:30 Procedure Start 03/04/25 08:11 Procedure End 03/04/25 10:52 Anesthesia End 03/04/25 11:05 Out of Room 03/04/25 11:05 Procedure Start Time: 08:11 Procedure Stop Time: 10:52 Select all DRAINS/GRAFTS/IMPLANTS that apply: Implanted device Implanted device details: Medtronic spinal cord stimulator paddle lead Estimated Blood Loss: 30 cc Specimen collected: No Description of surgery: Preoperative diagnosis: Chronic back pain, prior L2-S1 fusion, prior T11-12 laminectomy Postoperative diagnosis: Same Name of procedure: T9-10, T8-9 laminotomies, spinal cord stimulator paddle lead placement at T8 fortrial, CPT 38640, modifier 22 Anesthesia: Gen. endotracheal Estimated blood loss: 30 mL Complications: None Instrumentation used: Medtronic SCS paddle lead. Indications: The patient is a pleasant 74 who presented to us with symptoms of chronic low back pain with prior L2-S1 fusion and prior T11-12 laminectomy. He had an attempted percutaneous spinal cordstimulator trial by pain management which had severe difficulty passing through the scar tissue of the previous surgeries. Patient was referred by pain management for placement of a paddle lead through an open exposure. Since patient had not had a successful trial, he was recommended a paddle trial, which if successful will be followed by staged pulse generator placement. Patient requested surgical placement of permanent lead of the spinal cord stimulator. All risks and benefits of the procedure were explained to the patient. The risks include but are not limited to infection, bleeding, injury to nervesand vessels, need for further procedures, worsening lumbar pathology with potential neurologic sympt oms, persistent pain, technical issues with spinal cord stimulator, hematoma, migration of lead, skin impingement from subcutaneous pulse generator,worsening deformity, DVT, pulmonary embolism, cardiopulmonary event etc. patientunderstands all the risks and benefits and agrees to the procedure. Procedure: The patient was identified in the preoperative suite using unique patient identifiers. Skin was marked consent was taken and all questions were answered. The patient was then brought back to the operative room and a timeout was performed. General endotracheal anesthesia was given. Intraoperative neuro monitoring leads were applied. The patient was carefully positioned prone on a standard OR table with a Krzysztof frame. Back was prepped and draped in usual fashion. X-rays were performed to identify levelof incision. A posterior midline incision was carried out. Bovie was utilized togo down to the spinous processes. Subperiosteal dissection over the lamina was performed. A Heather clamp was then placed on the left presumed T10 transverse process & T9 spinous process, and C-arm AP view was taken. This confirmed the level by counting up from last rib. Previous instrumentation starting at L2 wasalso utilized for counting levels. T9-10 interspinous ligament was removed with the help of rongeur. Bur was utilized to thin down inferior T9 lamina to perform a laminotomy on the left butalso extending across the midline towards theright. Upgoing curettes were utilized to carefully remove ligamentum flavum piecemeal to adequatelyexpose posterior epidural space. The trial passer instrument was passed and confirmed on C-arm to reach the top of T8 vertebra on APview. This however was found to be slightly towards the left due to the patient's scoliosis. Multiple attempts were made but the Medtronic paddle lead slightly towards the left. Decision was then made to perform a T8-9 laminotomy to direction the superior portion of the paddle better. T8-9 laminotomy was performed from the left and extended towards the midline and beyond to the right. Partial medial facetectomy on both sides at both levels had to be performed through the laminotomy. Significantthickening of the flavum especially in the lateral aspects, likely calcified or ossified made the pr ocedure additionally difficult along with epidural adhesions from prior percutaneous attempts of SCS implantation. The Medtronic paddle lead was then passed and confirmed in AP view to be in midline and reaching T8 vertebra. #1 Prolene was passed through the deep fascia and the paddle was fixated aroundthe suture pass separately for the 2 leads. Lead extensions were applied. Tunneling instrument was used to create a subcutaneous tunnel from a transverse incision placed in the left lumbar region. This allowed the leads to be passed and tunneled through into the lower wound. These leads were then left out through the skin. A subcutaneous pocket was then created to the left of the midline to allow the coiled length ofthe leads to be held. This pocket was closed with 0 Vicryl. Thorough irrigation was given in the wound and Irrisept was kept in the wound for 1 minute. Hemostasis was achieved utilizing FloSeal. Closure was done in layers with 0 Vicryl interrupted for the deep fascia, 2-0 Vicryl for subcutaneous tissue and fidel for skin. 3-0 nylon was used to narrow down the opening of the leads at the skin stab incision in the left lumbar. Dermabond Prineo dressing was then applied for both the midline incision as well as the lead exit point in the leftlumbar. Dressed with 4 x 4 gauze and Tegaderm. the patient was then woken up from anesthesia. Patient was taken to PACU for monitoring in stable condition. The patient tolerated the procedure and no complications occurred. Blood loss was 30 ml. Medtronic instrumentation was utilized. No dural tear was identified intra-operatively. Neuromonitoring was utilized and all potentials stayed baseline. I was scrubbed for the entire procedure and performed the surgery myself. College And Career Counselor Belinda Snow PA-C. My physician assistant director of plant operations was a vital part of this case. They were important in appropriate retraction during the case, and protection of soft tissues during the procedure.Their intimate knowledge of thecase and my steps aided in safe and expedient completion of the procedure as well as appropriate position of the patient during the surgery. They were also vital in assisting with closure under my direct supervision. Surgical Findings: See operative note Complications Complications: No 03/04/25 1127 Cosigner Signature (if applicable): CC: Dr. Caio Gomez MD; Dr. Ovidio Vincent MD~ Signed [facility]06-17-2025 Consult note [facility] Medical Records Department [address] [place] [address] Anesthesia Postop Eval I 03/04/251114 MR#: [id number] Acct: [id number] Name: RONNIE YARBROUGH Rep #:[id number] : 1950 74 From: Ammon Lopez BIOLOGY MANAGER PCP: Dr. Ovidio Vincent MD Status:REG [facility] Y Race: C Location: [place] [address] Anesthesia: Postop Eval I Current Vital Signs Temperature: 97 F Pulse Rate: 68 Blood Pressure: 118/74 Respiratory Rate: 16 Pulse Ox: 94 Oxygen Delivery Method: Room Air Fraction of Inspired Oxygen (FIO2): 21 Assessment Airway patent: Yes Spontaneous unlabored respirations: Yes Mental status: Awake and Calm nausea: No Vomiting: No Anesthesia Complication: No Fluid Hydration Crystalloid volume administer (ml): 1,300 Colloids volume administered (ml): 100 Total IV fluid infused: 1,400 Progress Note Post-operative progress note: VSS see PACU notes for details Anesthesia document: Postop Eval 1 completed: Yes 03/04/25 1116 II BIOLOGY MANAGER> Date _ Ammon Ponce II BIOLOGY MANAGER Cosigner Signature: Date CC: ~ Signed [facility]06-17-2025 History and physical note Author Caio Gomez [facility] Note Date/Time March 04, 2025 1:15 pm [facility] Medical Records Department [address] [place] [address] History & Physical Exam 03/04/25 0716 MR#: [id number] Acct: [id number] Name: RONNIE YARBROUGH Rep #:[id number] : 1950 74 From: Caio Gomez MD PCP: Dr. Ovidio Vincent MD Status:[facility] Location: [place] [address]-1 History and Physical MR#: [id number] Acct: [id number] Name: RONNIE YARBROUGH Rep #: [id number] : 1950 Provider: Dr. Caio Gomez MD Age/Sex: 74/M [facility] Status: Signed Intake Vital Signs 12/05/2509:30 02/18/2508:16 02/21/2509:53 Height 5 ft 9 in 5 ft [...] tablet,delayed 81 mg PO DAILY Heart 01/05/23 02/21/25 H istory release calcium carb-ergocalciferol (vit 200 tab PO DAILY Supplment 04/ 03/12 History D2) 600 mg calcium-200 unit tablet cholecalciferol (vitamin D3) 50 50 mcg PO DAILY Supplement 01/05/2303/12 History mcg (2,000 unit) tablet cyanocobalamin (vitamin B-12) 1,000 mcg PO DAILY Supplement 01/05/23 0 02/21/25 History 1,000 mcg capsule losartan 25 mg tablet 12.5 mg PO DAILY BP 01/05/23 02/21/25 Hi story metformin 1,000 mg tablet 1,000 mg PO BID DM 01/05/23 02/21/25 His tory multivitamin 1 tab PO DAILY Supplement 01/05/2302/21 History omeprazole 40 mg capsule,delayed 40 mg PO DAILY GERD 01/05/23 02/21/25 Hi story release dapagliflozin propanediol 10 mg 10 mg PO DAILY 05/02/23 02/21/25 History tablet (Farxiga) fluticasone fur. 100 mcg-umeclid 1 inh inhalation DAILY 05/02/23 02/21/25 History 62.5 mcg-vilant 25 mcg inhalat.powder (Trelegy Ellipta) torsemide 20 mg tablet 20 mg PO DAILY 08/17/23 02/21/25 History atorvastatin 40 mg tablet 40 mg PO QDAY 03/06/24 02/21/25 History terbinafine HCl 250 mg tablet 250 mg PO DAILY Antifungal 03/06/2403/12 History magnesium oxide 250 mg PO BID 08/08/24 02/21/25 History oxycodone 5 mg tablet 5 mg PO TID PRN pain 12/05/24 02/21/25 H istory carvedilol 12.5 mg tablet 12.5 mg PO BID #180 tabs 12/20/24 Rx dulaglutide 3 mg/0.5 mL 3 mg subcut QWEEK 02/04/25 02/21/25 Hist ory subcutaneous pen injector (Trulicity) Have you fallen in the past year?: No [facility] Medical History Pre-op testing Wears hearing [...] Father Cancer, Onset Age: 52 Pancreatic cancer. DiabetesSister DiabetesGrandmother Diabetes Social History household members: spouse Smoking [...] [facility] His last back surgery was [...] it will be a paddle trial with asecond stage impulse generator placement. Reviewed the benefits [...] Consent was signed. Patient is in agreement. 03/04/25 0716 <Electronically signed by Caio Gomez MD> Cosigner Signature (if applicable): CC: Dr. Caio Gomez MD; Dr. Ovidio Vincent MD~ Signed [facility] Work Phone: 1(413) 369-360106-17-2025 Consult note Author Avila Do [facility] Note Date/Time March 04, 2025 6:48 am [facility] Medical Records Department [address] [place] [address] Pre-Anesthesia Evaluation 03/04/25 0641 MR#: [id number] Acct: [id number] Name: RONNIE YARBROUGH Rep #:[id number] : 1950 74 From: Avila Do MD PCP: Dr. Ovidio Vincent MD Status:REG SDC Y Race: C Location: [facility] ASA Classification* ASA Classification ASA Classification: 3 (Hx DVT, hx Afib (should be in sinus), COPD, HTN, PVCs, hx multiple myeloma, T2DM) Assessment & Plan Anesthesia* Anesthesia Assessment Anesthesia Assessment: Discussed sedation and/or anesthesia options, risks, benefits, and alternatives with patient/parents/legal guardian/POA. Questions invited. The patient/parents/legal guardian/POA seems to understand and agrees to proceedwith anesthesia plan. Reviewed the physical assessment, medical history, allergy history and patient home medications list prior to surgery/procedure/anesthetic and documented any changes. Performed airway and anesthesia risk assessments. Anesthesia Type Anesthesia Type: General History Source History Obtained from:: Patient and Chart Anesthesia Focused Assessment* Temperature: 98.4 F Pulse Rate: 72 Blood Pressure: 130/73 Respiratory Rate: 16 Pulse Ox: 99 Oxygen Delivery Method: Room Air Airway Assessment Mouth opens: >3 cm Mallampati Score: III Teeth Condition: Intact Neck Range of motion (ROM): Full ROM Labs Anesthesia Preop lab: CBC WBC 5.7 K/mm3 (4.4-11.0) 02/17/25 11:42 02/17/25 RBC 5.11 M/mm3 (4.6-6.2) 02/17/25 11:42 02/17/25 Hgb 14.4 g/dL (13.0-16.5) 02/17/25 11:42 02/17/25 Hct 44.3 % (40-54) 02/17/25 11:42 02/17/25 Plt Count 168 K/mm3 (150-450) 02/17/25 11:42 02/17/25 CHEMISTRY Potassium 4.4 mmol/L (3.3-5.1) 02/17/25 11:42 02/17/25 Sodium 137 mmol/L (133-145) 02/17/25 11:42 02/17/25 Magnesium 1.8 mg/dL (1.5-2.2) 02/17/25 11:42 02/17/25 BUN 22 mg/dL (4-19) H 02/17/25 11:42 02/17/25 Creatinine 1.17 mg/dL (0.70-1.20) 02/17/25 11:42 02/17/25 Glucose 129 mg/dL (70-99) H 02/17/25 11:42 02/17/25 POC Glucose 136 mg/dL (74-106) H 01/14/23 06:14 01/14/23 TSH 3.03 uIU/mL (0.358-3.74) 05/02/23 10:36 COAG Pre-Assessment Diagnosis/Proposed Procedure Planned Operative Procedure(s): Open thoracic laminectomy, spinal cord stimulator placement Anesthesia History Anesthesia History - veterinary pharmacologist: Anesthesia History - veterinary pharmacologist Hx Hospitalization Yes: INFECTION IN ELBOW/ 02/05/25 09:39 WRIST Any Problems With Anesthesia No 02/05/25 09:39 Cholinesterase deficiency No 02/05/25 09:39 You/Your Family Experience No 02/05/25 09:39 fever (hyperthermia) with Relationship Recent Exposure to Contagious No 03/04/25 06:14 Disease Does patient have nerve No 02/05/25 09:39 stimulator Patient instructed to have device shut off --Does patient have Pacemaker No 03/04/25 06:14 or ICD? When Was Last Pacemaker Check QUESTION #4 FULL TEXT: You/Your Family Experience fever (hyperthermia) with Anesthesia Last Oral Intake Last Oral intake: Last Oral Intake NPO since 04:30 03/04/25 06:14 Meds taken in AM with sips of No 03/04/25 06:14 water? Meds patient instructed to take am of surgery PONV PONV - veterinary pharmacologist: PONV - veterinary pharmacologist Female No 02/04/25 09:31 HX of Motion Sickness No 02/04/25 09:31 HX of N/V After Surgery No 02/04/25 09:31 Non-Smoker Yes 02/04/25 09:31 Duration of Surgery greater Yes 02/04/25 09:31 than 60 minutes Number of Risk Factors 2 02/04/25 09:31 PONV Score Moderate Risk 02/04/25 09:31 Height & Weight Height & Weight: Anesthesia: Height & Weight Height 5 ft 10 in 03/04/25 06:14 Weight: 92 kg 06/17/25 06:14 Body Mass Index (BMI) 29.0 03/04/25 06:14 Respiratory Assessment Respiratory Assessment - veterinary pharmacologist: Respiratory Tract Infection Hx - veterinary pharmacologist Hx Respiratory Tract Infection No 02/05/25 09:39 STOP Sleep Apnea STOP Sleep Apnea - veterinary pharmacologist: STOP Sleep Apnea - veterinary pharmacologist Hx Hypertension Yes: CONTROLLED ON MED 02/05/25 09:39 Hx Sleep Apnea No 02/05/25 09:39 CPAP BIPAP Do you snore loudly (louder [...] 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 Use History - veterinary pharmacologist: Tobacco Use History - veterinary pharmacologist Tobacco Use Smoking Status Former smoker 02/05/25 09:39 Hx Tobacco Use No 02/05/25 09:39 Years Smoking Packs Smoked per Day Smoking Cessation Date was Yes - quit smoking within 15 02/04/25 09:31 within the last 15 years years Hx Smoking Cessation Date Hx Smoking Cessation Counseling Hematologic Medial History Hematologic Hx - veterinary pharmacologist: 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 Specify any problems Hx of Preganancy in last 3 N/A 02/04/25 09:31 Months Nurse Filling Out Transfusion VCHRISTIN 02/04/25 09:31 & Questions: Date: 02/04/25 02/04/25 09:31 Time: 09:32 02/04/25 09:31 Patient unable to answer at this time (ie. confused, unrespo /Reproduction History /Reproductive History - veterinary pharmacologist: /Reproductive Hx- veterinary pharmacologist Hx Now No 02/04/25 09:31 Gestational Age (in weeks): EDC: Hx Hx Para Hx Section SAB No 02/05/25 09:39 Active Medications Active Medications: Current Medications Generic Name Dose Route Start Last Admin Trade Name Freq PRN Reason Stop Dose Admin Acetaminophen 1,000 mg 03/04/25 07:30 03/04/25 06:23 Acetaminophen 500 Mg Tablet PO 03/04/25 07:31 1,000 mg PREOP ONE Administration Cefazolin Sodium 2 gm/ Sodium 110 mls @ 150 mls/hr 03/04/25 07:30 Chloride IV 03/04/25 08:13 INTRAOP ONE Tranexamic Acid 1,000 mg/ 110 mls @ 440 mls/hr 03/04/25 07:30 Sodium Chloride IV 03/04/25 07:44 INTRAOP ONE Tranexamic Acid 1,000 mg/ 110 mls @ 440 mls/hr 03/04/25 07:30 Sodium Chloride IV 03/04/25 07:44 INTRAOP ONE Magnesium Sulfate 2 gm/ 104 mls @ 208 mls/hr 03/04/25 07:30 03/04/25 06:05 Dextrose IV 03/04/25 07:59 208 mls/hr INTRAOP ONE Administration Lactated Ringer's 1,000 mls @ 15 mls/hr 03/04/25 05:45 03/04/25 06:00 IV 15 mls/hr .Q48H TG Administration Insulin Human Lispro 1 - 6 unit 03/04/25 07:30 Insulin Lispro 100 Unit/Ml Insuln.Pen SC Q4H PRN PRN BG>/= 180, SEE PROTOCOL Protocol PFSH Medical History Pre-op testing Wears hearing [...] Thoracic spinal stenosis Bone tumor Home Medications ?Medication ?Instructions ?Recorded ?Last Taken ?Type aspirin 81 mg tablet,delayed 81 mg PO DAILY Heart 12/1803/03/25 08:30 History release calcium carb-ergocalciferol (vit 200 tab PO DAILY Supp lment 01/05/23 03/03/25 08:30 History D2) 600 mg calcium-200 unit tablet cholecalciferol (vitamin D3) 50 50 mcg PO DAILY Supple ment 01/05/23 Unknown History mcg (2,000 unit) tablet cyanocobalamin (vitamin B-12) 1,000 mcg PO DAILY Suppl ement 01/05/23 03/03/25 08:30 History 1,000 mcg capsule losartan 25 mg tablet 12.5 mg PO DAILY BP 01/05/23 03/03/25 08:30 History metformin 1,000 mg tablet 1,000 mg PO BID DM 01/05/23 03/03/25 19:30 History multivitamin 1 tab PO DAILY Supplement 03/03/25 08:30 History omeprazole 40 mg capsule,delayed 40 mg PO DAILY GERD 0 01/05/23 03/03/25 08:30 History release dapagliflozin propanediol 10 mg 10 mg PO DAILY 3 03/03/25 08:30 History tablet (Farxiga) fluticasone fur. 100 mcg-umeclid 1 inh inhalation SUSHIL Y 05/02/23 03/03/25 08:30 History 62.5 mcg-vilant 25 mcg inhalat.powder (Trelegy Ellipta) torsemide 20 mg tablet 20 mg PO DAILY 08/17/2302/16 08:30 History atorvastatin 40 mg tablet 40 mg PO QDAY 03/06/2403/03 08:30 History magnesium oxide 250 mg PO BID 08/08/2403/03 19:30 History oxycodone 5 mg tablet 5 mg PO TID PRN pain 5 03/03/25 19:30 History carvedilol 12.5 mg tablet 12.5 mg PO BID #180 tabs 01/1003/03/25 19:30 Rx dulaglutide 3 mg/0.5 mL 3 mg subcut QWEEK 02/04/25 0 02/24/25 History subcutaneous pen injector (Trulicity) Allergy/AdvReac Type Severity Reaction Status Date / Time No Known Allergies Allergy Verified 03/04/25 06:09 Family History Father Cancer, Onset Age: 52 Pancreatic cancer. Diabetes Sister Diabetes Grandmother Diabetes Surgical History Hx of bilateral cataract extraction [...] fusion Hx of fusion of cervical spine Social History household members: spouse Smoking Status: Former smoker quit date: 09/18/12 alcohol intake: current alcohol intake frequency: a few times a month substance use type: does not use caffeine: Yes Type: coffee Number of servings: 3 Review of Systems (Anesthesia) ROS Narrative System reviewed and no additional complaints, except as documented. Physical Exam Const alert, oriented x3 and average body habitus Resp normal respiratory effort, normal air movement and clear to auscultation bilaterally Cardio regular rate, regular rhythm, no murmurs and diaphoretic 03/04/25 0648 <Electronically signed by Avila Do MD> Date _ [facility]ila Do [facility] Signature: Date CC: ~ Signed [facility] Work Phone: [phone] [phone] [facility] Medical Records Department [address] [place] [address] History Physical Exam 03/04/2516 MR#: [id number] Acct: [id number] Name: RONNIE YARBROUGH Rep #: [id number] : 1950 74 From: Caio Gomez MD PCP: Dr. Ovidio Vincent MD Status:[facility] Location: [facility]-1 History and Physical MR#: [id number] Acct: [id number] Name: RONNIE YARBROUGH Rep #: [id number] : 1950 Provider: Dr. Caio oGmez MD Age/Sex: 74/M Location: [facility] Status: Signed Intake Vital Signs 12/05/2509:30 02/18/2508:16 02/21/2509:53 Height 5 ft 9 in 5 ft [...] tablet,delayed 81 mg PO DAILY Heart 01/05/23 02/21/25 History release calcium carb-ergocalciferol (vit 200 tab PO DAILY Supplment 01/05/23 02/21/25 Histo ry D2) 600 mg calcium-200 unit tablet cholecalciferol (vitamin D3) 50 50 mcg PO DAILY Supplement 01/05/23 02/21/25 Histo ry mcg (2,000 unit) tablet cyanocobalamin (vitamin B-12) 1,000 mcg PO DAILY Supplement 01/05/23 02/21/25 Hi story 1,000 mcg capsule losartan 25 mg tablet 12.5 mg PO DAILY BP 01/05/23 02/21/25 History metformin 1,000 mg tablet 1,000 mg PO BID DM 01/05/23 02/21/25 History multivitamin 1 tab PO DAILY Supplement 01/05/23 02/21/25 Histor y omeprazole 40 mg capsule,delayed 40 mg PO DAILY GERD 01/05/23 02/21/25 History release dapagliflozin propanediol 10 mg 10 mg PO DAILY 05/02/23 02/21/25 History tablet (Farxiga) fluticasone fur. 100 mcg-umeclid 1 inh inhalation DAILY 05/02/23 02/21/25 History 62.5 mcg-vilant 25 mcg inhalat.powder (Trelegy Ellipta) torsemide 20 mg tablet 20 mg PO DAILY 08/17/23 02/21/25 History atorvastatin 40 mg tablet 40 mg PO QDAY 03/06/24 02/21/25 History terbinafine HCl 250 mg tablet 250 mg PO DAILY Antifungal 03/06/24 02/21/25 Histo ry magnesium oxide 250 mg PO BID 08/08/24 02/21/25 History oxycodone 5 mg tablet 5 mg PO TID PRN pain 12/05/24 02/21/25 History carvedilol 12.5 mg tablet 12.5 mg PO BID #180 tabs 12/20/24 02/21/25 Rx dulaglutide 3 mg/0.5 mL 3 mg subcut QWEEK 02/04/25 02/21/25 History subcutaneous pen injector (Trulicity) Have [...] Father Cancer, Onset Age: 52 Pancreatic cancer. DiabetesSister DiabetesGrandmother Diabetes Social History household members: spouse Smoking Status: Former smoker quit date: 09/18/12 alcohol intake: current alcohol intake frequency: a few times a month substance use type: does not use caffeine: Yes Type: coffee Number of servings: 3 HPI back pain Details: This documentation accurately reflects the service provided and the decisions made by me, Dr. Solis (more content not included)...[facility] 03-04-2025 Consult note [facility] Medical Records Department [address] [place] [address] Pre-Anesthesia Evaluation 03/04/25 0641 MR#: [id number] Acct: [id number] Name: RONNIE YARBROUGH Rep #:[id number] : 1950 74 From: Avila Do MD PCP: Dr. Ovidio Vincent MD Status:[facility] Y Race: C Location: [place] [address] ASA Classification* ASA Classification ASA Classification: 3 (Hx DVT, hx Afib (should be in sinus), COPD, HTN, PVCs, hx multiple myeloma, T2DM) Assessment & Plan Anesthesia* Anesthesia Assessment Anesthesia Assessment: Discussed sedation and/or anesthesia options, risks, benefits, and alternatives with patient/parents/legal guardian/POA. Questions invited. The patient/parents/legal guardian/POA seems to understand and agrees to proceedwith anesthesia plan. Reviewed the physical assessment, medical history, allergy history and patient home medications list prior to surgery/procedure/anesthetic and documented any changes. Performed airway and anesthesia risk assessments. Anesthesia Type Anesthesia Type: General History Source History Obtained from:: Patient and Chart Anesthesia Focused Assessment* Temperature: 98.4 F Pulse Rate: 72 Blood Pressure: 130/73 Respiratory Rate: 16 Pulse Ox: 99 Oxygen Delivery Method: Room Air Airway Assessment Mouth opens: >3 cm Mallampati Score: III Teeth Condition: Intact Neck Range of motion (ROM): Full ROM Labs Anesthesia Preop lab: CBC WBC 5.7 K/mm3 (4.4-11.0) 02/17/25 11:42 02/17/25 RBC 5.11 M/mm3 (4.6-6.2) 02/17/25 11:42 02/17/25 Hgb 14.4 g/dL (13.0-16.5) 02/17/25 11:42 02/17/25 Hct 44.3 % (40-54) 02/17/25 11:42 02/17/25 Plt Count 168 K/mm3 (150-450) 02/17/25 11:42 02/17/25 CHEMISTRY Potassium 4.4 mmol/L (3.3-5.1) 02/17/25 11:42 02/17/25 Sodium 137 mmol/L (133-145) 02/17/25 11:42 02/17/25 Magnesium 1.8 mg/dL (1.5-2.2) 02/17/25 11:42 02/17/25 BUN 22 mg/dL (4-19) H 02/17/25 11:42 02/17/25 Creatinine 1.17 mg/dL (0.70-1.20) 02/17/25 11:42 02/17/25 Glucose 129 mg/dL (70-99) H 02/17/25 11:42 02/17/25 POC Glucose 136 mg/dL (74-106) H 01/14/23 06:14 01/14/23 TSH 3.03 uIU/mL (0.358-3.74) 05/02/23 10:36 COAG Pre-Assessment Diagnosis/Proposed Procedure Planned Operative Procedure(s): Open thoracic laminectomy, spinal cord stimulator placement Anesthesia History Anesthesia History - veterinary pharmacologist: Anesthesia History - veterinary pharmacologist Hx Hospitalization Yes: INFECTION IN ELBOW/ 02/05/25 09:39 WRIST Any Problems With Anesthesia No 02/05/25 09:39 Cholinesterase deficiency No 02/05/25 09:39 You/Your Family Experience No 02/05/25 09:39 fever (hyperthermia) with Relationship Recent Exposure to Contagious No 03/04/25 06:14 Disease Does patient have nerve No 02/05/25 09:39 stimulator Patient instructed to have device shut off --Does patient have Pacemaker No 03/04/25 06:14 or ICD? When Was Last Pacemaker Check QUESTION #4 FULL TEXT: You/Your Family Experience fever (hyperthermia) with Anesthesia Last Oral Intake Last Oral intake: Last Oral Intake NPO since 04:30 03/04/25 06:14 Meds taken in AM with sips of No 03/04/25 06:14 water? Meds patient instructed to take am of surgery PONV PONV - veterinary pharmacologist: PONV - veterinary pharmacologist Female No 02/04/25 09:31 HX of Motion Sickness No 02/04/25 09:31 HX of N/V After Surgery No 02/04/25 09:31 Non-Smoker Yes 02/04/25 09:31 Duration of Surgery greater Yes 02/04/25 09:31 than 60 minutes Number of Risk Factors 2 02/04/25 09:31 PONV Score Moderate Risk 02/04/25 09:31 Height & Weight Height & Weight: Anesthesia: Height & Weight Height 5 ft 10 in 03/04/25 06:14 Weight: 92 kg 03/04/25 06:14 Body Mass Index (BMI) 29.0 03/04/25 06:14 Respiratory Assessment Respiratory Assessment - veterinary pharmacologist: Respiratory Tract Infection Hx - veterinary pharmacologist Hx Respiratory Tract Infection No 02/05/25 09:39 STOP Sleep Apnea STOP Sleep Apnea - veterinary pharmacologist: STOP Sleep Apnea - veterinary pharmacologist Hx Hypertension Yes: CONTROLLED ON MED 02/05/25 09:39 Hx Sleep Apnea No 02/05/25 09:39 CPAP BIPAP Do you snore loudly (louder No 02/04/25 09:31 than talking or can be heard Do you often feel tired/ No 02/04/25 09:31 fatigued/ sleepy during daytime? Has anyone observed you stop No 02/04/25 09:31 breathing during sleep? STOP Results Negative 02/04/25 09:31 QUESTION #5 FULL TEXT : Do you snore loudly (louder than talking or can be heard through closeddoors)? 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 Specify any problems Hx of Preganancy in last 3 N/A 02/04/25 09:31 Months Nurse Filling Out Transfusion VCHRISTIN 02/04/25 09:31 & Questions: Date: 02/04/25 02/04/25 09:31 Time: 09:32 02/04/25 09:31 Patient unable to answer at this time (ie. confused, unrespo /Reproduction History /Reproductive History - veterinary pharmacologist: /Reproductive Hx- veterinary pharmacologist Hx Now No 02/04/25 09:31 Gestational Age (in weeks): EDC: Hx Hx Para Hx Section SAB No 02/05/25 09:39 Active Medications Active Medications: Current Medications Generic Name Dose Route Start Last Admin Trade Name Noahq PRN Reason Stop Dose Admin Acetaminophen 1,000 mg 03/04/25 07:30 03/04/25 06:23 Acetaminophen 500 Mg Tablet PO 03/04/25 07:31 1,000 mg PREOP ONE Administration Cefazolin Sodium 2 gm/ Sodium 110 mls @ 150 mls/hr 03/04/25 07:30 Chloride IV 03/04/25 08:13 INTRAOP ONE Tranexamic Acid 1,000 mg/ 110 mls @ 440 mls/hr 03/04/25 07:30 Sodium Chloride IV 03/04/25 07:44 INTRAOP ONE Tranexamic Acid 1,000 mg/ 110 mls @ 440 mls/hr 03/04/25 07:30 Sodium Chloride IV 03/04/25 07:44 INTRAOP ONE Magnesium Sulfate 2 gm/ 104 mls @ 208 mls/hr 03/04/25 07:30 03/04/25 06:05 Dextrose IV 03/04/25 07:59 208 mls/hr INTRAOP ONE Administration Lactated Ringer's 1,000 mls @ 15 mls/hr 03/04/25 05:45 03/04/25 06:00 IV 15 mls/hr .Q48H TG Administration Insulin Human Lispro 1 - 6 unit 03/04/25 07:30 Insulin Lispro 100 Unit/Ml Insuln.Pen SC Q4H PRN PRN BG>/= 180, SEE PROTOCOL Protocol PFSH Medical History Pre-op testing Wears hearing [...] Thoracic spinal stenosis Bone tumor Home Medications ?Medication ?Instructions ?Recorded ?Last Taken ?Type aspirin 81 mg tablet,delayed 81 mg PO DAILY Heart 12/1803/03/25 08:30 History release calcium carb-ergocalciferol (vit 200 tab PO DAILY Supp lment 01/05/23 03/03/25 08:30 History D2) 600 mg calcium-200 unit tablet cholecalciferol (vitamin D3) 50 50 mcg PO DAILY Supple ment 01/05/23 Unknown History mcg (2,000 unit) tablet cyanocobalamin (vitamin B-12) 1,000 mcg PO DAILY Suppl ement 01/05/23 03/03/25 08:30 History 1,000 mcg capsule losartan 25 mg tablet 12.5 mg PO DAILY BP 01/05/23 03/03/25 08:30 History metformin 1,000 mg tablet 1,000 mg PO BID DM 01/05/23 03/03/25 19:30 History multivitamin 1 tab PO DAILY Supplement 03/03/25 08:30 History omeprazole 40 mg capsule,delayed 40 mg PO DAILY GERD 0 01/05/23 03/03/25 08:30 History release dapagliflozin propanediol 10 mg 10 mg PO DAILY 3 03/03/25 08:30 History tablet (Farxiga) fluticasone fur. 100 mcg-umeclid 1 inh inhalation SUSHIL Y 05/02/23 03/03/25 08:30 History 62.5 mcg-vilant 25 mcg inhalat.powder (Trelegy Ellipta) torsemide 20 mg tablet 20 mg PO DAILY 08/17/2302/16 08:30 History atorvastatin 40 mg tablet 40 mg PO QDAY 03/06/2403/03 08:30 History magnesium oxide 250 mg PO BID 08/08/2403/03 19:30 History oxycodone 5 mg tablet 5 mg PO TID PRN pain 5 03/03/25 19:30 History carvedilol 12.5 mg tablet 12.5 mg PO BID #180 tabs 01/1003/03/25 19:30 Rx dulaglutide 3 mg/0.5 mL 3 mg subcut QWEEK 02/04/25 0 02/24/25 History subcutaneous pen injector (Trulicity) Allergy/AdvReac Type Severity Reaction Status Date / Time No Known Allergies Allergy Verified 03/04/25 06:09 Family History Father Cancer, Onset Age: 52 Pancreatic cancer. Diabetes Sister Diabetes Grandmother Diabetes Surgical History Hx of bilateral cataract extraction [...] fusion Hx of fusion of cervical spine Social History household members: spouse Smoking Status: Former smoker quit date: 09/18/12 alcohol intake: current alcohol intake frequency: a few times a month substance use type: does not use caffeine: Yes Type: coffee Number of servings: 3 Review of Systems (Anesthesia) ROS Narrative System reviewed and no additional complaints, except as documented. Physical Exam Const alert, oriented x3 and average body habitus Resp normal respiratory effort, normal air movement and clear to auscultation bilaterally Cardio regular rate, regular rhythm, no murmurs and diaphoretic 03/04/25 0648 MD> Date _ Avila Do MD [facility] Signature: Date CC: ~ Signed [facility]06-12-2025 History of Present illness Narrative* Slime Hernandez LPN - 02/27/2025 9:17 AM EDT Scan on 02/26/2025 10:00 AM by Provider, SPENCER Alejandra: Echo [facility] Progress [facility] [address] [place] [address] [address] [place] [address] OFFICE VISIT Date of Service: 02/21/25 MR#: [id number] Acct: [id number] Name: RONNIE YARBROUGH Rep #: [id number] : 1950 Provider: Dr. Nancy Gomez MD Age/Sex: 74/M Location: [facility] Status: Signed Intake Vital Signs 12/05/24 10:30 [...] [facility] His last back surgery was about 3 years ago and he had an MRI after that surgery that showed c ompression and a fracture. He is unable to recall the exact dates and what surgeries were done.Patient denies radicular symptoms. Denies numbness, tinglingor other associated symptoms. Patient denieshaving leg weakness but does have some issues [...] scar throughout the lumbar spine butpossibly also goingto the lower thoracic spine. There is midline [...] noticed in the recent MRI throughout the thoracicspine. As discussed at previous visits, patient will [...] fallen in the past year?: No 02/21/25 Shahab JOHNSON> Date _ Caio Gomez MD Cosigner Signature: Date (if applicable) CC: Dr. Ovidio Vincent MD ~ [facility]06-04-2025 History of Present illness Narrative* Slime Hernandez LPN - 02/19/2025 7:48 AM EDT Scan on 02/19/2025 5:34 AM by Justyn Clark PA-C: Chemistry Scan on 02/18/2025 2:11 PM by Justyn Clark PA-C: Microbiology [facility] History of Present illness Narrative* Slime Hernandez LPN - 02/17/2025 2:08 PM EDT Scan on 02/17/2025 2:12 PM by Justyn Clark PA-C: Chemistry Scan on 02/17/2025 1:35 PM by Justyn Clark PA-C: Chemistry [facility] History of Present illness Narrative* Slime Hernandez LPN - 02/17/2025 11:47 AM EDT Scan on 02/17/2025 11:24 AM by Justyn Clark PA-C: Consultation - Cardiology [facility]06-[facility]-2025 [facility] [address] [place] [address] OFFICE VISIT Date of Service: 02/17/25 MR#: [id number] Acct: [id number] Name: RONNIE YARBROUGH Rep #: [id number] : 1950 Provider: Dr. 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 7 ventricular triplets. 61 beats [...] Cardiac Ejection fraction %: 70 02/17/25 1110 MD> Date _ Patsy Gamble MD Cosigner Signature: Date (if applicable) CC: Dr. Ovidio Vincent MD ~ [facility]06-02-2025 Progress note Author Patsy Gamble [facility] Note Date/Time February 17, 2025 11:10 am [facility] [address] [place] [address]. [address] [place] [address] OFFICE VISIT Date of Service: 02/17/25 MR#: [id number] Acct: [id number] Name: RONNIE YARBROUGH Rep #: [id number] : 1950 Provider: Dr. Sam Gamble MD Age/Sex: 74/M Location: [facility] Status: Signed HPI HPI History of Present [...] [facility]. [facility] 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 Ovidio Vincent MD ~ [place] [employer] Work Phone: 1(181) 248-229005-27-2025 Telephone encounter Note* Telephone Encounter - Ramu Alanis MA - 02/11/2025 9:31 AM EDT Faxed. Ramu Alanis MA [facility]05-27-2025 Miscellaneous Notes* Telephone Encounter - Ramu Alanis MA - 02/11/2025 9:31 AM EDT Faxed. Ramu Alanis MA * Telephone Encounter - Ovidio Vincent MD - 02/07/2025 4:29 PM EDT Form ready to be faxed. * Telephone Encounter - Ramu Alanis MA - 02/06/2025 10:58 AM EDT Received fax from [facility]. Contacted patient to schedule and I asked patient is he scheduled to see Cardiology for Clearance and he indicated yes, appointment is scheduled for 02/17/2025 and they are completing Stress Test and labs etc. Form given to PCP to note that patient is being cleared by Cardiology. Ramu Alanis MA documented in this encounterFort [facility]05-[facility]25 Telephone encounter Note * Telephone Encounter - Ovidio Vincent MD - 02/07/2025 4:29 PM EDT Form ready to be faxed. [facility]05-22-2025 Telephone encounter Note* Telephone Encounter - Ramu Alanis MA - 02/06/2025 10:58 AM EDT Received fax from [facility]. Contacted patient to schedule and I asked patient is he scheduled to see Cardiology for Clearance and he indicated yes, appointment is scheduled for 02/17/2025 and they are completing Stress Test and labs etc. Form given to PCP to note that patient is being cleared by Cardiology. Ramu Alanis MA [facility]05-01-2025 Telephone encounter Note* Telephone Encounter - Nargis [...] Fox MA January 16, 2025 11:54 AM [facility]05-01-2025 Miscellaneous Notes* Telephone Encounter - Nargis Fox [...] 16, 2025 11:54 AM documented in this encounterFort [facility]04-18-[facility] History of Present illness Narrative* Slime Hernandez LPN - 01/03/2025 12:13 PM EDT Scan on 01/03/2025 10:00 AM by Provider, SPENCER Alejandra: Consultation - Orthopedics documented in this encounterFort [facility] Hospital04-11-2025 History of Present illness Narrative* Shania Ba, RT(R) - 12/27/2024 10:00 AM EDT Radiology [...] PATIENT PRESENTS WITH AN IMPLANTABLE OR ATTACHED HIGHWAY PATROL COMMANDER: No RADIOLOGY DEPARTMENT: MR; Exam(s) Completed: Spine: Thoracic spine and Lumbar spine PERIPHERAL IV DATA: Not applicable SIGNED BY: Shania Ba, RT(R) December 27, 2024 10:09 AM documented in this encounterFort Hamilton Hospital04-04-2025 History of Present illness Narrative* Esvin Marcus [...] edema or varicosities noted. Non-Invasive Vascular Laboratory [facility] Lower Extremity Arterial Physiology Study Bilateral/Complete Date [...] Normal at rest. Technologist: Rufina Swartz RVT, RDND Ordering physician: ESVIN MARCUS Interpreting physician: TAYLOR [...] months. Esvin Marcus DPM documented in this encounterFort Hamilton Hospital03-26-2025 Telephone encounter Note * Telephone Encounter - Ovidio Vincent MD - 12/11/2024 6:06 PM EDT The following approved medication requests have been transmitted electronically. Requested Prescriptions Signed Prescriptions Disp Refills dapagliflozin propanediol (FARXIGA) 10 mg tablet 90 tablet 1 Sig: Take 1 tablet by mouth once daily. Take one daily in the morning Authorizing Provider: OVIDIO VINCENT MD [facility]03-26-2025 Miscellaneous Notes* Telephone Encounter - Ovidio Vincent MD - 12/11/2024 6:06 PM EDT The following approved medication requests have been transmitted electronically. Requested Prescriptions Signed Prescriptions Disp Refills dapagliflozin propanediol (FARXIGA) 10 mg tablet 90 tablet 1 Sig: Take 1 tablet by mouth once daily. Take one daily in the morning Authorizing Provider: OVIDIO VINCENT MD * Telephone Encounter - Liberty Hayes 12/11/2024 3:26 PM EDT Ref [id number] Patient has been identified by name and [...] Thank you. Liberty Hayes. documented in this encounterFort [facility] Hospital03-26-2025 Telephone encounter Note * Telephone Encounter - Liberty Hayes - 12/11/2024 3:26 PM EDT Ref [id number] Patient has been identified by name and [...] 06/09/2025 Please advise. Thank you. Liberty Hayes. [facility]03-21-2025 History of Present illness Narrative* Slime Hernandez LPN - 12/06/2024 2:09 PM EDT Scan on 12/06/2024 1:54 PM by Provider, SPENCER Alejandra: Consultation - Orthopedics documented in this encounterFort Hamilton Hospital03-20-2025 Evaluation note* Diagnosis Onset Date Resolution Status Admit Date 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, 2024 10:23am History of lumbar fusion acute December 05, 2024 10:23am Lumbar scoliosis acute December 052024 10:23am T12 compression fracture acute December 05, 2024 10:23am Thoracolumbar kyphosis acute [facility] 2024 10:23am Failed back surgical syndrome acute January 02, 2025 3:20pm History of lumbar fusion acute January 02, 2025 3:20pm Lumbar scoliosis acute January 022024 3:20pm T12 compression fracture acute January 02, 2025 3:20pm Thoracolumbar kyphosis acute Ap ril 2024 3:20pm Diabetes mellitus chronic February 10:45am Dyslipidemia chronic February 17 10:45am Essential hypertension chronic Ju ne 2024 10:45am Hypertensive heart disease chronic February 17, 2025 10:45am PVCs (premature ventricular contractions) chronic February 17, 2025 10:45am DVT of lower extremity, bilateral resolved February 17, 2025 10:45am Preoperative cardiovascular examination noneactive February 17, 2025 10:45am [place] [employer] Work Phone: 1(723) 227-588603-20-2025 Evaluation note* Diagnosis Onset Date Resolution Status Admit Date 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, 2024 10:23am History of lumbar fusion acute December 05, 2024 10:23am Lumbar scoliosis acute December 052024 10:23am T12 compression fracture acute December 05, 2024 10:23am Thoracolumbar kyphosis acute [facility] 2024 10:23am Failed back surgical syndrome acute January 02, 2025 3:20pm History of lumbar fusion acute January 02, 2025 3:20pm Lumbar scoliosis acute January 022024 3:20pm T12 compression fracture acute January 02, 2025 3:20pm Thoracolumbar kyphosis acute Ap ril 2024 3:20pm Diabetes mellitus chronic February 10:45am Dyslipidemia chronic February 17 10:45am Essential hypertension chronic Ju ne 2024 10:45am Hypertensive heart disease chronic February 17, 2025 10:45am PVCs (premature ventricular contractions) chronic February 17, 2025 10:45am DVT of lower extremity, bilateral resolved February 17, 2025 10:45am Preoperative cardiovascular examination noneactive February 17, 2025 10:45am Failed back surgical syndrome acute February 21, 2025 9:51am T12 compression fracture acute February 21, 2025 9:51am Thoracolumbar kyphosis acute Ju 2024 9:51am [facility] Work Phone: [phone]) [phone] Telephone encounter Note* Telephone Encounter - Ramu [...] Alanis MA December 02, 2024 9:09 AM [facility]03-17-2025 Miscellaneous Notes* Telephone Encounter - Ramu Alanis [...] 02, 2024 9:09 AM documented in this encounterFort [facility]03-04-2025 Telephone encounter Note * Telephone Encounter - Ovidio Vincent MD - 11/19/2024 5:16 PM EST Patient sees Pulmonary. Will forward to correct provider. [facility]03-04-2025 Miscellaneous Notes* Telephone Encounter - Ovidio Vincent [...] Yes Requested Prescriptions Pending Prescriptions Disp Refills rzjxamgtadb-avzmarrfg-ekpgwnrg (TRELEGY ELLIPTA) 100-62.5-25 mcg inhalation powder 3 Each 3 Sig: inhale 1 puff by mouth and INTO THE LUNGS once daily Sondra Bonilla LPN November 19, 2024 1:40 PM documented in this encounterFort [facility] Hospital03-04-2025 Telephone encounter Note * Telephone Encounter - [...] Yes Requested Prescriptions Pending Prescriptions Disp Refills uxvssjwzlrj-akzzxrfog-jbvlqoif (TRELEGY ELLIPTA) 100-62.5-25 mcg inhalation powder 3 Each 3 Sig: inhale 1 puff by mouth and INTO THE LUNGS once daily Sondra Bonilla LPN November 19, 2024 1:40 PM [facility]03-04-2025 Telephone encounter Note* Telephone Encounter - Adrianne Hercules MA - 11/19/2024 10:57 AM EST Pt notified and verbalized understanding Adrianne Hercules MA [facility]03-04-2025 Miscellaneous Notes* Telephone Encounter - Adrianne Hercules MA - 11/19/2024 10:57 AM EST Pt notified and verbalized understanding Adrianne Hercules MA * Telephone Encounter - Rebecca Jansen APRN.CNP - 11/19/2024 8:43 AM EST Please let patient know her labs show improving lipids and hgba1c. Continue current dietary and lifestyle habits. documented in this encounterFort [facility] Hospital03-04-2025 Telephone encounter Note * Telephone Encounter - Rebecca Jansen APRN.CNP - 11/19/2024 8:43 AM EST Please let patient know her labs show improving lipids and hgba1c. Continue current dietary and lifestyle habits. [facility]03-03-2025 NoteHNO ID: [id number] Author: REBECCA JANSEN APRN.CNP Service: ? 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 Day: +12; Engrafted Protocol(s): 3422 1C Preparative regimen: melphalan Mobilization regimen: neupogen and plerixafor Stem cell source: apheresis CD34 cell dose (x10e6/kg): 5.14 Date of transplant: 06/15/2018 Bilateral leg edema 09/30/2022 Cancer of the skin, 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 Cervical spondylosis without myelopathy Chronic renal failure, stage 3a ([facility]) 03/30/2023 COPD (chronic obstructive pulmonary disease) ([facility]) 03/15/2021 Diabetic eye exam ([facility]) 09/09/2021 Last done 09/09/[address] Juve Reza Dilated aortic root ([facility]) 06/04/2023 Seeing [facility] Discoloration and thickening [...] transfusion Hypomagnesemia 04/22/2021 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[facility]) 06/13/2018 --ppx ACV and cipro Increased weakness when ambulating 12/16/2022 Inflammatory polyarthropathy (HCC) Leg DVT (deep venous thromboembolism), acute, left ([facility]) 01/02/2018 --acute DVT gastrocnemius found 12/13/2017 --continue [...] chemotherapy can resume at discharge Multiple myeloma ([facility]) 11/28/2017 Multiple myeloma in remission ([facility]) Obesity, Class I, BMI 30-34.9 10/01/2012 Osteoarthritis of both hands Pancytopenia due to chemotherapy ([facility]) 06/25/2018 --Transfuse PRBC and platelets per protocol --GCSF Peripheral autonomic neuropathy in disorders classified elsewhere 06/07/2005 Pulmonary hypertension, unspecified ([facility]) 10/23/2019 Spinal stenosis, lumbar region, without neurogenic claudication 11/13/2006 Tobacco abuse 12/27/2011 Quit 2013 Type 2 diabetes mellitus without complication, without long-term current use of insulin ([facility]) 04/12/2018 Venous insufficiency, peripheral 01/06/2014 Vitamin D deficiency 12/31/2014 Weakness of both lower extremities 12/16/2022 Previous Surgical History PAST SURGICAL HISTORY Procedure Laterality Date ANES ARTHROSCOPIC TOTAL SHOULDER REPLACEMENT Right 01/28/2013 [facility] - complete right shoulder replaceement ARTHRD ANT [...] cyst removal JOINT REPLACEMENT HX Right shoulder [id number]-TOTAL REPLACE/BOTH COMPART Left 08/21/2023 [facility] W/O FACETEC [...] No Family History Asth (more content not included)...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 Day: +12; Engrafted Protocol(s): 3422 1C Preparative regimen: melphalan Mobilization regimen: neupogen and plerixafor Stem cell source: apheresis CD34 cell dose (x10e6/kg): 5.14 Date of transplant: 06/15/2018 Bilateral leg edema 09/30/2022 Cancer of the skin, 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 Cervical spondylosis without myelopathy Chronic renal failure, stage 3a ([facility]) 03/30/2023 COPD (chronic obstructive pulmonary disease) ([facility]) 03/15/2021 Diabetic eye exam ([facility]) 09/09/2021 Last done 09/09/[address] Juve Reza Dilated aortic root ([facility]) 06/04/2023 Seeing [facility] Discoloration and thickening of nails both feet 10/06/2021 ED (erectile dysfunction) of organic origin 07/04/2022 Enlarged LA (left atrium) 06/04/2023 Seeing [facility] Essential hypertension 06/13/2018 -On lisinopril 10mg daily ( home med) -Will d/c for now given hyperkalemia . 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[facility]) 06/13/2018 --ppx ACV and cipro Increased weakness when ambulating 12/16/2022 Inflammatory polyarthropathy (HCC) Leg DVT (deep venous thromboembolism), acute, left ([facility]) 01/02/2018 --acute DVT gastrocnemius found 12/13/2017 --continue [...] chemotherapy can resume at discharge Multiple myeloma ([facility]) 11/28/2017 Multiple myeloma in remission ([facility]) Obesity, Class I, BMI 30-34.9 10/01/2012 Osteoarthritis of both hands Pancytopenia due to chemotherapy ([facility]) 06/25/2018 --Transfuse PRBC and platelets per protocol --GCSF Peripheral autonomic neuropathy in disorders classified elsewhere 06/07/2005 Pulmonary hypertension, unspecified ([facility]) 10/23/2019 Spinal stenosis, lumbar region, without neurogenic claudication 11/13/2006 Tobacco abuse 12/27/2011 Quit 2012 Type 2 diabetes mellitus without complication, without long-term current use of insulin ([facility]) 04/12/2018 Venous insufficiency, peripheral 01/06/2014 Vitamin D deficiency 12/31/2014 Weakness of both lower extremities 12/16/2022 Previous Surgical History PAST SURGICAL HISTORY Procedure Laterality Date ANES ARTHROSCOPIC TOTAL SHOULDER REPLACEMENT Right 01/28/2013 [facility] - complete right shoulder replaceement ARTHRD ANT [...] cyst removal JOINT REPLACEMENT HX Right shoulder SNUK-LXOM-XHIRLVRVKIDB-TOTAL REPLACE/BOTH COMPART Left 08/21/2023 [facility] W/O FACETEC [...] two times a day with meals. Per [facility] dapagliflozin propanediol (FARXIGA) 10 mg [...] by mouth two times a day. . rypadzjiprj-bbleqzkuq-nzlapumj (TRELEGY ELLIPTA) 100-62.5-25 mcg inhalation powder inhale [...] on 05/30/2025 Covid-19 Vaccine(7 - Moderna risk season) due on 12/30/2024 Dilated Retinal Exam [...] 416.8, ICD10: I27.21 -Follows with cardiology at [facility] 5. Chronic obstructive pulmonary disease, unspecified COPD type (HCC) - ICD9: 496, ICD10: J44.9 -Continue current medication -Stable 6. Atrial fibrillation, unspecified type (HCC) - ICD9: 427.31, ICD10: I48.91 -Follows with cardiology at [facility] 7. Inflammatory polyarthropathy (HCC) - ICD9: [...] 427.31, ICD10: I48.0 --Follows with cardiology at [facility] 13. Essential hypertension - ICD9: 401.9, [...] 278.00, ICD10: E66.811 -Weight stable Rebecca Jansen APRN.BACK TENDER PAPER MACHINE documented in [facility] encounterFort [facility]02-[facility] Telephone encounter Note * Telephone Encounter - Lillian Flanagan - 11/12/2024 9:19 AM EST LVM for pt to call and schedule 4 MO OV and Myeloma labs week prior. Lillian Flanagan [facility]02-25-2025 Miscellaneous Notes* Telephone Encounter - Lillian Flanagan - 11/12/2024 9:19 AM EST LVM for pt to call and schedule 4 MO OV and Myeloma labs week prior. Lillian Flanagan * Telephone Encounter - Murray Mooney MD - 11/12/2024 8:49 AM EST Called pt reviewed myeloma labs. Will recheck in 4 months. Murray Mooney MD November 12, 2024 documented in this encounterFort [facility] Hospital02-25-2025 Telephone encounter Note * Telephone Encounter - Murray Mooney MD - 11/12/2024 8:49 AM EST Called pt reviewed myeloma labs. Will recheck in 4 months. Murray Mooney MD November 12, 2024 [facility]01-15-2025 Telephone encounter Note* Telephone Encounter - Ovidio Vincent MD - 10/02/2024 5:06 PM EST The following approved medication requests have been transmitted electronically. Requested Prescriptions Signed Prescriptions Disp Refills dulaglutide (TRULICITY) 3 mg/0.5 mL pen injector 12 Each 1 Sig: Inject 3 mg subcutaneously one time a week. Inject once per week. Discard Pen After Authorizing Provider: OVIDIO VINCENT MD [facility]01-15-2025 Miscellaneous Notes* Telephone Encounter - Ovidio Vincent [...] 02, 2024 2:51 PM documented in this encounterFort [facility] Hospital01-15-2025 Telephone encounter Note * Telephone Encounter - Ovidio Vincent MD - 10/02/2024 5:05 PM EST The following approved medication requests have been transmitted electronically. Requested Prescriptions Signed Prescriptions Disp Refills atorvastatin (LIPITOR) 40 mg tablet 90 tablet 1 Sig: Take 1 tablet by mouth once daily. Authorizing Provider: OVIDIO VINCENT MD [facility]01-15-2025 Miscellaneous Notes* Telephone Encounter - Ovidio Vincent [...] 02, 2024 2:48 PM documented in this encounterFort [facility] Hospital01-15-2025 Telephone encounter Note * Telephone Encounter - [...] Hernandez LPN October 02, 2024 2:51 PM [facility]01-15-2025 Telephone encounter Note* Telephone Encounter - [place] [...] Hyde LPN October 02, 2024 2:48 PM [facility]01-14-2025 NoteHNO ID: [id number] Author: REBECCA CHEEK MA Service: ? Author Type: Munitions Factory Worker Type: Progress Notes Filed: 10/01/2024 13:25 Note [...] Rebecca Cheek MA October 01, 2024 1:22 [facility]01-14-2025 NoteHNO ID: [id number] Author: ADONIS THEODORE MA Service: ? Author Type: Munitions Factory Worker Type: Progress Notes Filed: 10/01/2024 07:34 Note Text: POPULATION HEALTH NAVIGATION OUTREACH Action/FYI GENE result received by fax from Dr. Juve Reza. Exam date 03/26/24. Result scanned and Health Maintenance updated.[facility]01-14-2025 History of Present illness Narrative* Adonis Theodore MA - 10/01/2024 7:29 AM EST POPULATION HEALTH NAVIGATION OUTREACH Action/FYI GENE result received by fax from Dr. Juve Reza. Exam date 03/26/24. Result scanned and Health Maintenance updated. documented in this encounterFort [facility] Hospital01-14-2025 NoteHNO ID: [id number] Author: ADONIS THEODORE MA Service: ? Author Type: Munitions Factory Worker Type: Progress Notes Filed: 10/01/2024 07:27 Note Text: POPULATION HEALTH NAVIGATION OUTREACH GENE result received by fax from Dr. Juve Reza. Exam date 03/26/24. Result scanned and Health Maintenance updated. Adonis Theodore Population Health Navigator [facility]01-13-2025 NoteHNO ID: [id number] Author: REBECCA CHEEK MA Service: ? Author Type: Munitions Factory Worker Type: Progress Notes Filed: 09/30/2024 14:44 Note Text: POPULATION HEALTH NAVIGATION OUTREACH Action/FYI Provider responded and declined labs. KED is calendar year and addressed as such. FOBT was due this month per Navigation Signature: Rebecca Cheek MA September 30, 2024 2:42 [facility]01-13-2025 History of Present illness Narrative* Rebecca Cheek [...] Cancer Screening KED 11/04/2024 in [facility] with LAB [facility] - LAB* 11/12/2024 in [facility] with MURRAY MOONEY - 6 MO FOLLOW UP/LABS 11/12* 11/18/2024 [facility] REBECCA JANSEN - 6 month follow up, Please address due care gapsand HCC gap closure 11/25/2024 in [facility] with HAYDE WARD - 6 month follow up [facility] - Medicare Wellness, Please address due care gap and HCC gap closure HCC related Navigation Signature: Rebecca Cheek MA September 30, 2024 11:18 AM documented in this encounterFort [facility] Hospital01-13-2025 NoteHNO ID: [id number] Author: OVIDIO VINCENT MD Service: ? Author [...] these will be addressed at his next appt.[facility]01-13-2025 NoteHNO ID: [id number] Author: REBECCA CHEEK MA Service: ? Author Type: Munitions Factory Worker Type: Progress Notes Filed: 09/30/2024 11:49 Note Text: POPULATION HEALTH NAVIGATION OUTREACH Action/FYI [facility] [employer] and needs appointment to [...] Colorectal Cancer Screening KED 11/04/2024 in [facility] with LAB [facility] - LAB* 11/12/2024 in [facility] with MURRAY MOONEY - 6 MO FOLLOW UP/LABS 11/12* [facility] - 6 month follow up, Please address due care gaps and HCC gap closure 11/25/2024 in [facility] with HAYDE WARD - 6 month follow up 06/09/20[facility]INC[facility] - Medicare Wellness, Please address due care gap and HCC gap closure HCC related Navigation Signature: Rebecca Cheek MA September 30, 2024 11:18 [facility]01-13-2025 NotePatient Outreach (NETNAV) RONNIE YARBROUGH I ([id number]) 1950 M Date Time Provider Department 09/30/24 REBECCA CHEEK NETNAV During your visit today, we recorded the following information about you: Rebecca Cheek MA 09/30/2024 11:49 AM Signed POPULATION HEALTH NAVIGATION OUTREACH Action/FYI Patient is on [employer] list for below and needs appointment to address: Lung Cancer Screening Covid-19 Vaccine() Advance Directive Discussion Dilated Retinal Exam Colorectal [...] Medicare Annual Wellness Visit Colorectal Cancer Screening VINCENT 11/04/2024 in [facility] with [facility] - LAB* 11/12/2024 in [facility] with MURRAY MOONEY - 6 MO FOLLOW UP/LABS 11/12* 11/18/2024 in [facility] with REBECCA JANSEN - 6 month follow up, Please address due care gaps and HCC gap closure 11/25/2024 in [facility] with HAYDE WARD - 6 month follow up 06/09/2025 in [facility] with OVIDIO VINCENT - Medicare Wellness, [...] Population Health Navigation Outreach [[id number]] Cmt: [facility] Prescriptions as of 10/01/2024 - omeprazole (PRILOSEC) 40 mg capsule TAKE ONE CAPSULE BY MOUTH ONCE DAILY ON AN EMPTY STOMACH - carvedilol (COREG) 12.5 mg tablet Take 1 tablet by mouth two times a day with meals. Per [facility] - dapagliflozin propanediol (FARXIGA) 10 mg tablet Take 1 tablet by mouth once daily. Take one daily in the morning - doxycycline monohydrate (MONODOX) 100 mg capsule TAKE 1 CAPSULE BY MOUTH TWICE DAILY FOR 28 DAYS - oxyCODONE IR (ROXICODONE) 5 mg imme (more content not included)...[facility]12-17-2024 Telephone encounter Note* Telephone Encounter - Ovidio Vincent MD - 09/03/2024 11:38 AM EST The following approved medication requests have been transmitted electronically. Requested Prescriptions Signed Prescriptions Disp Refills omeprazole (PRILOSEC) 40 mg capsule 90 capsule 1 Sig: TAKE ONE CAPSULE BY MOUTH ONCE DAILY ON AN EMPTY STOMACH Authorizing Provider: OVIDIO VINCENT MD [facility]12-17-2024 Miscellaneous Notes* Telephone Encounter - Ovidio Vincent [...] 03, 2024 8:38 AM documented in [facility] encounterFort [facility]12-[facility] Telephone encounter Note * Telephone Encounter - [...] Liu LPN September 03, 2024 8:38 AM [facility]11-22-2024 NoteHNO ID: [id number] Author: SLIME HERNANDEZ LPN Service: ? Author Type: LICENSED NURSE Type: Progress Notes Filed: 08/09/2024 09:09 Note Text: Scan on 08/08/2024 5:09 PM by ProviderJustyn PA-C: [facility] History of Present illness Narrative* Slime Hernandez LPN - 08/09/2024 9:09 AM EST Scan on 08/08/2024 5:09 PM by ProviderJustyn PA-C: Consultation - Cardiology documented in this encounterFort [facility]11-18-[facility]24 Telephone encounter Note * Telephone Encounter - Jennie Delaney RN - 08/05/2024 9:42 AM EST Patient notified of results. Patient verbalizes understanding. Jennie Delaney RN [facility]11-18-2024 Miscellaneous Notes* Telephone Encounter - Jennie Delaney [...] also came back normal. documented in this encounterFort [facility]11-18-2024 Telephone encounter Note * Telephone Encounter - Ramu Alanis MA - 08/05/2024 9:39 AM EST Left message for patient to contact office. Ramu Alanis MA [facility]11-18-2024 Telephone encounter Note* Telephone Encounter - Ovidio Vincent MD - 08/05/2024 9:27 AM EST Let patient now his iron levels are ok and his CBC does not show anemia. His CRP that Leslye had ordered also came back normal. [facility]10-24[facility] History of Present illness Narrative* Marta Lui RN - 07/11/2024 2:15 PM EDT [facility] Telephonic Outreach Provider Action/FYI N/A [...] more often than normal? No Based on certified optician, the following disposition is advised: No symptoms or symptoms present, not severe. Routed to: No Action Needed MACO Education Provided this Outreach: No Mr. Yarbrough feels comfortable reaching out to his medical team with any questions or concerns and is asking to be removed from [facility] home monitoring at this time. Marta Lui RN July 11, 2024 2:21 PM documented in this encounterFort [facility] Hospital10-24-2024 NoteHNO ID: [id number] Author: MARTA LUI RN Service: ? Author Type: Registered Nurse Type: Progress Notes Filed: 07/11/2024 14:25 Note Text: [facility] Telephonic Outreach Provider Action/FYI N/A [...] more often than normal? No Based on certified optician, the following disposition is advised: No symptoms or symptoms present, not severe. Routed to: No Action Needed MACO Education Provided this Outreach: No Mr. Yarbrough feels comfortable reaching out to his medical team with any questions or concerns and is asking to be removed from [facility] home monitoring at this time. Marta Lui RN July 11, 2024 2:21 [facility]10-24-2024 Telephone encounter Note* Telephone Encounter - Slime [...] Hernandez LPN July 11, 2024 7:44 AM [facility]10-24-2024 Miscellaneous Notes* Telephone Encounter - Slime Hernandez [...] 11, 2024 7:44 AM documented in this encounterFort Hamilton Hospital10-24-2024 NotePatient Outreach ([facility]) RONNIE YARBROUGH I ([id number]) 1950 M Date Time Provider Department 07/11/24 MARTA LUI During your visit today, we recorded the following information about you: Marta Lui RN 07/11/2024 2:25 PM Signed [facility] Telephonic Outreach Provider Action/ANJU N/A 3rd attempt in this sequence Contacted [...] more often than normal? No Based on certified optician, the following disposition is advised: No symptoms or symptoms present, not severe. Routed to: No Action Needed [facility] Education Provided this Outreach: No Mr. Yarbrough [...] Cmt: 3rd attempt this sequence Telephonic Outreach [facility] Home Monitoring Prescriptions as of 07/12/2024 - [...] two times a day with meals. Per [facility] - atorvastatin (LIPITOR) 40 mg [...] mouth two times a day. . - lvlhgfopqie-gmzywtpwj-wazbqeyt (TRELEGY ELLIPTA) 100-62.5-25 mcg inhalation powder inhale [...] [E87.5] 06/18/2018 2018 [place] (more content not included)...[facility]10-15-[facility]24 Instructions* Patient Instructions* Esvin Marcus - 07/02/2024 [...] (or decreased sensation in your feet) a cross country and track and field coach should always cut your toenails. Be Careful [...] Go to your health care provider or cross country and track and field coach to treat these conditions. documented in this encounterFort Hamilton Hospital10-15-2024 NoteHNO ID: [id number] Author: ESVIN MARCUS, ? Service: ? 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 Day: +12; Engrafted Protocol(s): 3422 1C Preparative regimen: melphalan Mobilization regimen: neupogen and plerixafor Stem cell source: apheresis CD34 cell dose (x10e6/kg): 5.14 Date of transplant: 06/15/2018 Bilateral leg edema 09/30/2022 Cancer of the skin, 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 Cervical spondylosis without myelopathy Chronic renal failure, stage 3a ([facility]) 03/30/2023 COPD (chronic obstructive pulmonary disease) ([facility]) 03/15/2021 Diabetic eye exam ([facility]) 09/09/2021 Last done 09/09/[address] Juve Reza Dilated aortic root ([facility]) 06/04/2023 Seeing [facility] Discoloration and thickening [...] transfusion Hypomagnesemia 04/22/2021 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[facility]) 06/13/2018 --ppx ACV and cipro Increased weakness when ambulating 12/16/2022 Inflammatory polyarthropathy ([facility]) Leg DVT (deep venous thromboembolism), acute, left ([facility]) 01/02/2018 --acute DVT gastrocnemius found 12/13/2017 --continue [...] chemotherapy can resume at discharge Multiple myeloma ([facility]) 11/28/2017 Multiple myeloma in remission ([facility]) Obesity, Class I, BMI 30-34.9 10/01/2012 Osteoarthritis of both hands Pancytopenia due to chemotherapy ([facility]) 06/25/2018 --Transfuse PRBC and platelets per protocol --GCSF Peripheral autonomic neuropathy in disorders classified elsewhere 06/07/2005 Pulmonary hypertension, unspecified ([facility]) 10/23/2019 Spinal stenosis, lumbar region, without neurogenic claudication 11/13/2006 Tobacco abuse 12/27/2011 Quit 2012 Type 2 diabetes mellitus without complication, without long-term current use of insulin ([facility]) 04/12/2018 Venous insufficiency, peripheral 01/06/2014 Vitamin D [...] daily. Take one daily in the morning otbnjnalrso-qdcwwszyy-egbrpbvf (TRELEGY ELLIPTA) 100-62.5-25 mcg inhalation powder inhale 1 puff by mouth and INTO THE BAMBI (more content not included)... [facility] History of Present illness Narrative* Esvin Marcus [...] of deep veins of both lower extremities ([facility]) 02/24/2023 Eliquis started 02/2023, can stop 08/2023 Advance directive discussed with patient 09/30/2022 Discussed 09/2022: up to date Allergic rhinitis 03/15/2021 At high risk for falls 12/16/2022 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 Day: +12; Engrafted Protocol(s): 3422 1C Preparative regimen: melphalan Mobilization regimen: neupogen and plerixafor Stem cell source: apheresis CD34 cell dose (x10e6/kg): 5.14 Date of transplant: 06/15/2018 Bilateral leg edema 09/30/2022 Cancer of the skin, 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 Cervical spondylosis without myelopathy Chronic renal failure, stage 3a ([facility]) 03/30/2023 COPD (chronic obstructive pulmonary disease) ([facility]) 03/15/2021 Diabetic eye exam ([facility]) 09/09/2021 Last done 09/09/[address] Juve Reza Dilated aortic root ([facility]) 06/04/2023 Seeing [facility] Cardio Discoloration and thickening of nails both feet 10/06/2021 ED (erectile dysfunction) of organic origin 07/04/2022 Enlarged LA (left atrium) 06/04/2023 Seeing [facility] Essential hypertension 06/13/2018 -On lisinopril 10mg daily ( home med) -Will d/c for now given hyperkalemia . 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[facility]) 06/13/2018 --ppx ACV and cipro Increased weakness when ambulating 12/16/2022 Inflammatory polyarthropathy (HCC) Leg DVT (deep venous thromboembolism), acute, left ([facility]) 01/02/2018 --acute DVT gastrocnemius found 12/13/2017 --continue [...] chemotherapy can resume at discharge Multiple myeloma ([facility]) 11/28/2017 Multiple myeloma in remission ([facility]) Obesity, Class I, BMI 30-34.9 10/01/2012 Osteoarthritis of both hands Pancytopenia due to chemotherapy ([facility]) 06/25/2018 --Transfuse PRBC and platelets per protocol --GCSF Peripheral autonomic neuropathy in disorders classified elsewhere 06/07/2005 Pulmonary hypertension, unspecified ([facility]) 10/23/2019 Spinal stenosis, lumbar region, without neurogenic claudication 11/13/2006 Tobacco abuse 12/27/2011 Quit 2013 Type 2 diabetes mellitus without complication, without long-term current use of insulin ([facility]) 04/12/2018 Venous insufficiency, peripheral 01/06/2014 Vitamin D [...] two times a day with meals. Per [facility] atorvastatin (LIPITOR) 40 mg tablet [...] daily. Take one daily in the morning bdcfatzkuir-fuzrefxlo-ynmsuszb (TRELEGY ELLIPTA) 100-62.5-25 mcg inhalation powder inhale [...] ANES ARTHROSCOPIC TOTAL SHOULDER REPLACEMENT Right 01/28/2013 [facility] - complete right shoulder replaceement ARTHRD ANT [...] cyst removal JOINT REPLACEMENT HX Right shoulder KWLK-OKIY-UTJBCUMNAIHN-TOTAL REPLACE/BOTH COMPART Left 08/21/2023 [facility] W/O FACETEC [...] Objective: [facility] Constitutional: Pt is a well developed 74 [...] complication, without long-term current use of insulin ([facility]) (I73.9) PAD (peripheral artery disease) ([facility]) (L84) Callus Plan: 1. Patient was seen [...] lotion 6. F/u in 3 months Esvin Testrake, DPM documented in this encounterFort [facility] Hospital10-10-2024 NoteHNO ID: [id number] Author: MARTA LUI RN Service: ? Author Type: Registered Nurse Type: Progress Notes Filed: 06/27/2024 14:34 Note Text: [facility] Telephonic Outreach Provider Action/FYI N/A 2nd attempt Contacted for: Routine Telephonic Outreach Contact made with patient: No, left message. Marta Lui RN June 27, 2024 2:34 [facility]10-10-2024 History of Present illness Narrative* Marta Lui RN - 06/27/2024 2:31 PM EDT CD Telephonic Outreach Provider Action/ANJU N/A 2nd attempt Contacted for: Routine Telephonic Outreach Contact made with patient: No, left message. Marta Lui RN June 27, 2024 2:34 PM documented in this encounterFort Hamilton Hospital10-10-2024 NotePatient Outreach ([facility]) RONNIE YARBROUGH I ([id number]) 1950 M Date Time Provider Department 06/27/24 MARTA LUI [facility] During your visit today, we recorded the following information about you: Marta Lui RN 06/27/2024 2:34 PM Signed CD Telephonic Outreach Provider Action/FYI N/A 2nd attempt [...] two times a day with meals. Per [facility] - atorvastatin (LIPITOR) 40 mg [...] Take one daily in the morning - ottpiigaksp-lcbmyturm-wcxvukun (TRELEGY ELLIPTA) 100-62.5-25 mcg inhalation powder inhale [...] vitamin B12 [E53.8] 08 (more content not included)...[facility]10-[facility] Telephone encounter Note* Telephone Encounter - Chanelle Nolan RN - 06/26/2024 9:51 AM EDT Pt called and is notified of providers results and instructions. Pt voices understanding. He statesthey are back in [place], and he will come in to get lab work done. Chanelle Nolan RN [facility]10-09-2024 Miscellaneous Notes* Telephone Encounter - Chanelle Nolan RN - 06/26/2024 9:51 AM EDT Pt called and is notified of providers results and instructions. Pt voices understanding. He statesthey are back in [place], and he will come in to get lab work done. Chanelle Nolan RN * Telephone Encounter - Leslye Winter PA-C - 06/26/2024 8:44 AM EDT Please find out when patient is back in [place]. The infectious disease specialist just got back to . They do not need to see him. It looks like they already cancelled the appointment. If still taking atb, can stop. I would like to get repeat labs once they are in [place]. Thanks. Leslye Winter PA-C documented in this encounterFort Hamilton Hospital10-09-2024 Telephone encounter Note * Telephone Encounter - Leslye Winter PA-C - 06/26/2024 8:44 AM EDT Please find out when patient is back in [place]. The infectious disease specialist just got back to . They do not need to see him. It looks like they already cancelled the appointment. If still taking atb, can stop. I would like to get repeat labs once they are in [place]. Thanks. Leslye Winter PA-C [facility]09-26-2024 NoteHNO ID: [id number] Author: MARTA LUI RN Service: ? Author Type: Registered Nurse Type: Progress Notes Filed: 06/13/2024 12:04 Note Text: [facility] Telephonic Outreach Provider Action/FYI N/A Contacted for: Routine Telephonic Outreach AND [facility] screening for food insecurity and transportation Contact made with patient: No, left message. Spoke with spouse who states they are out in [place] currently. Requests a return call in 2 weeks. Marta Lui RN June 13, 2024 12:03 [facility]09-26-2024 History of Present illness Narrative* Marta Lui RN - 06/13/2024 12:00 PM EDT [facility] Telephonic Outreach Provider Action/FYI N/A Contacted for: Routine Telephonic Outreach & SDOH screening for food insecurity and transportation Contact made with patient: No, left message. Spoke with spouse who states they are out in [place] currently. Requests a return call in 2 weeks. Marta Lui RN June 13, 2024 12:03 PM documented in this encounterFort [facility] Hospital09-26-2024 NotePatient Outreach ([facility]) RONNIE YARBROUGH I ([id number]) 1950 M Date Time Provider Department 06/13/24 MARTA LUI During your visit today, we recorded the following information about you: Marta Lui RN 06/13/2024 12:04 PM Signed CD Telephonic Outreach Provider Action/ANJU N/A Contacted for: Routine Telephonic Outreach AND SDOH screening for food insecurity and transportation Contact made with patient: No, left message. Spoke with spouse who states they are out in [place] currently. Requests a return call in 2 [...] two times a day with meals. Per [facility] - atorvastatin (LIPITOR) 40 mg [...] Take one daily in the morning - wyorsstzvau-ppvcarjpo-kvpxhomx (TRELEGY ELLIPTA) 100-62.5-25 mcg inhalation powder inhale [...] (H*03/15/2021 Allergic rhinitis [J30.9] (more content not included)...[facility]09-[facility] Instructions* Patient Instructions* Ovidio Vincent MD - [...] review all the medicines you take, even ydqz-spb-cynsasw medicines. As you get older, the way [...] have certain medical conditions. documented in this encounterFort [facility] Hospital09-12-2024 History of Present illness Narrative* Ovidio Vincent [...] Halima Cohen (Rn), RN (Inactive) as Specialty Plastics Heat Welder (Hospice & Palliative Medicine) Nancie Low, RN as Specialty Plastics Heat Welder (Hematology/Oncology) Marta Lui, ALICIA as Child Psychometrist Murray Mooney MD (Hematology/Oncology) Leno Márquez MD (Orthopedics) Loretta Leon PA-C (Pulmonary and Critical Care Medicine) [facility]/Family history review Reviewed [...] sees Hematology last visit 04/2024 Patient sees [facility] last visit 02/2024 Past medical history, appointments, medications, allergies reviewed. Previous Medical History PAST MEDICAL HISTORY 02/24/2023: Acute thromboembolism of deep veins of both lower extremities ([facility]) Comment: Eliquis started 02/2023, can stop 08/202309/30/2022: Advance directive discussed with patient Comment: Discussed 09/2022: up to date 03/15/2021: Allergic rhinitis 12/16/2022: At high risk for falls 06/13/2018: 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[facility]) Comment: Day: +12; Engrafted Protocol(s): 3422 1C Preparative regimen: melphalan Mobilization regimen: neupogen and plerixafor Stem cell source: apheresis CD34 cell dose (x10e6/kg): 5.14 Date of transplant: 06/15/2018 09/30/2022: Bilateral leg edema 04/21/2021: Cancer of the skin, basal cell Comment: excised 04/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 No date: Cervical spondylosis without myelopathy 03/30/2023: Chronic renal failure, stage 3a ([facility]) 03/15/2021: COPD (chronic obstructive pulmonary disease) ([facility]) 09/09/2021: Diabetic eye exam ([facility]) Comment: Last done 09/09/[address] Juve Reza 06/04/2023: Dilated aortic root ([facility]) Comment: Seeing [facility] 10/06/2021: Discoloration and [...] 04/22/2021: Hypomagnesemia 06/13/2018: 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[facility]) Comment: --ppx ACV and cipro 12/16/2022: Increased weakness when ambulating No date: Inflammatory polyarthropathy ([facility]) 01/02/2018: Leg DVT (deep venous thromboembolism), acute, left ([facility]) Comment: --acute DVT gastrocnemius found 12/13/2017 --continue [...] can resume at discharge 11/28/2017: Multiple myeloma ([facility]) No date: Multiple myeloma in remission ([facility]) 10/01/2012: Obesity, Class I, BMI 30-34.9 No date: Osteoarthritis of both hands 06/25/2018: Pancytopenia due to chemotherapy ([facility]) Comment: --Transfuse PRBC and platelets per protocol --GCSF 06/07/2005: Peripheral autonomic neuropathy in disorders classified elsewhere 10/23/2019: Pulmonary hypertension, unspecified ([facility]) 11/13/2006: Spinal stenosis, lumbar region, without neurogenic claudication 12/27/2011: Tobacco abuse Comment: Quit 201204/12/2018: Type 2 diabetes mellitus without complication, without long-term current use of insulin ([facility]) 01/06/2014: Venous insufficiency, peripheral 12/31/2014: Vitamin D deficiency 12/16/2022: Weakness of both lower extremities Previous Surgical History PAST SURGICAL HISTORY 01/28/2013: ANES ARTHROSCOPIC TOTAL SHOULDER REPLACEMENT; Right Comment: [facility] - complete right shoulder replaceement 2009: ARTHRD [...] JOINT REPLACEMENT HX; Right Comment: shoulder 08/21/2023: XDVL-PUZW-FCPPUHGWPXWG-TOTAL REPLACE/BOTH COMPART; Left 2008: [facility] W/O FACETEC [...] two times a day with meals. Per [facility] atorvastatin (LIPITOR) 40 mg tablet [...] daily. Take one daily in the morning hbbavpjwzoa-hzyqsaijw-lmrzihdp (TRELEGY ELLIPTA) 100-62.5-25 mcg inhalation powder inhale [...] Foot Exam due on 09/30/2023 Covid-19 Vaccine( - 2022- season) due on 05/19/2024 Influenza Vaccine(1) due [...] - 4.00 k/uL 0.87 (L) 0.82 (L) Sol[place]% % 7.0 6.6 Abs Sol[place] <0.87 k/uL 0.62 0.45 Eosin% % 0.2 [...] Negative Ketones, Urine Negative Trace ! Specific [place], Ur 1.005 - 1.030 1.032 (H) Hemoglobin/Blood,Ur [...] 0.17 Vitamin B12 232 - 1,245 pg/mL 290 069 249 Vitamin D 25 Hydroxy 31.0 - 80.0 [...] which included preparing to see the patient, ativ-ld-debo patient care, completing clinical documentation, performing a medically appropriate examination, counseling and educating the patient/family/caregiver and ordering medications, tests, or procedures. Ovidio Vincent MD The sensitive examination was discussed with the Patient or Patient's Authorized Saw Edge Fuser Circular. Asapplicable, any other physician, advance practice provider, medical student, or other health professional student that will be observing or involved in the sensitive examination for educational or training purposes was discussed with the Patient or Authorized Saw Edge Fuser Circular. The Patient or Authorized Saw Edge Fuser Circular has agreed to proceed with the sensitive examination. (Sensitive examination includes inspection and/or palpation of the breasts, pelvis, prostate and anorectal regions) documented in this encounterFort Hamilton Hospital09-12-2024 NoteHNO ID: [id number] Author: OVIDIO VINCENT MD Service: ? Author [...] Halima Cohen (Rn), RN (Inactive) as Specialty Plastics Heat Welder (Hospice AND Palliative Medicine) Nancie Low, ALICIA as Specialty Plastics Heat Welder (Hematology/Oncology) Marta Lui, ALICIA as Child Psychometrist Murray Mooney MD (Hematology/Oncology) Leno Márquez MD (Orthopedics) Loretta Leon PA-C (Pulmonary and Critical Care Medicine) Dr. Ward[facility] Medical/Family history review Reviewed [...] of deep veins of both lower extremities ([facility]) Comment: Eliquis started 02/2023, can stop 08/202309/30/2022: Advance directive discussed with patient Comment: Discussed 09/2022: up to date 03/15/2021: Allergic rhinitis 12/16/2022: At high risk for falls 06/13/2018: 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[facility]) Comment: Day: +12; Engrafted Protocol(s): 3422 1C Preparative regimen: melphalan Mobilization regimen: neupogen and plerixafor Stem cell source: apheresis CD34 cell dose (x10e6/kg): 5.14 Date of transplant: 06/15/2018 09/30/2022: Bilateral leg edema 04/21/2021: Cancer of the skin, basal cell Comment: excised 04/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 No date: Cervical spondylosis without myelopathy 03/30/2023: Chronic renal failure, stage 3a ([facility]) 03/15/2021: COPD (chronic obstructive pulmonary disease) ([facility]) 09/09/2021: Diabetic eye exam ([facility]) Comment: Last done 09/09/[address] Juve Reza 06/04/2023: Dilated aortic root ([facility]) Comment: Seeing [facility]io 10/06/2021: Discoloration and thickening of nails both feet 07/04/2022: ED (erecti (more content not included)...[facility] 05-30-2024 Telephone encounter Note* Telephone Encounter - Slime Hernandez LPN - 05/30/2024 9:00 AM EDT Patient notified of results and provider's instructions. Patient verbalizes understanding. Slime Hernandez LPN [facility]09-[facility] Miscellaneous Notes* Telephone Encounter - Slime Hernandez [...] US every few years. documented in this encounterFort Hamilton [facility] Telephone encounter Note * Telephone Encounter - Ovidio Vincent MD - 05/29/2024 9:05 PM EDT Let patient know the US of his neck arteries showed mild narrowing on both sides but not significant enough to cause any symptoms or a stroke. We will repeat the US every few years. [facility]09-11-2024 Telephone encounter Note* Telephone Encounter - Ramu Alanis MA - 05/29/2024 1:22 PM EDT Patient notified and voiced understanding. Ramu Alanis MA [facility]09-11-2024 Miscellaneous Notes* Telephone Encounter - Ramu Alanis MA - 05/29/2024 1:22 PM EDT Patient notified and voiced understanding. Ramu Alanis MA * Telephone Encounter - Ovidio Vincent MD - 05/29/2024 12:54 PM EDT Let patient know the MRI of his brain was normal with some expected normal age related changes. [facility] Telephone encounter Note * Telephone Encounter - Ovidio Vincent MD - 05/29/2024 12:54 PM EDT Let patient know the MRI of his brain was normal with some expected normal age related changes. [facility]09-11-[facility] History of Present illness Narrative* Adonis Bryant RT(R) - 05/29/2024 9:20 AM EDT Radiology Service Progress Note PATIENT NAME: Ronnie Yrabrough DATE OF SERVICE: May 29, 2024 TIME: [...] PATIENT PRESENTS WITH AN IMPLANTABLE OR ATTACHED HIGHWAY PATROL COMMANDER: No RADIOLOGY DEPARTMENT: MR; Exam(s) Completed: Head: Routine Brain PERIPHERAL IV DATA: Not applicable SIGNED BY: ARNIE Montelongo) May 29, 2024 9:20 AM documented in this encounterFort [facility]09-[facility]24 NoteHNO ID: [id number] Author: ADONIS BRYANT RT(R) Service: ? Author [...] PATIENT PRESENTS WITH AN IMPLANTABLE OR ATTACHED HIGHWAY PATROL COMMANDER: No RADIOLOGY DEPARTMENT: MR; Exam(s) Completed: Head: Routine Brain PERIPHERAL IV DATA: Not applicable SIGNED BY: RT Reginald(R) May 29, 2024 9:20 [facility]09-09-2024 History of Present illness Narrative* Hayde Ward MD - 05/27/2024 10:00 AM EDT Images from the original note were not included. . Respiratory Mission Note Patient name: Ronnie Yarbrough PCP: Ovidio Vincent MD CC: Follow-up COPD HPI: Ronnie Yarbrough 73 year old male former [id number] smoker, quitting in 2011 with PMH significantfor [...] of deep veins of both lower extremities ([facility]) Comment: Eliquis started 02/2023, can stop 08/202309/30/2022: Advance directive discussed with patient Comment: Discussed 09/2022: up to date 03/15/2021: Allergic rhinitis 12/16/2022: At high risk for falls 06/13/2018: 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[facility]) Comment: Day: +12; Engrafted Protocol(s): 3422 1C Preparative regimen: melphalan Mobilization regimen: neupogen and plerixafor Stem cell source: apheresis CD34 cell dose (x10e6/kg): 5.14 Date of transplant: 06/15/2018 09/30/2022: Bilateral leg edema 04/21/2021: Cancer of the skin, basal cell Comment: excised 04/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 No date: Cervical spondylosis without myelopathy 03/30/2023: Chronic renal failure, stage 3a ([facility]) 03/15/2021: COPD (chronic obstructive pulmonary disease) ([facility]) 09/09/2021: Diabetic eye exam ([facility]) Comment: Last done 09/09/[address] Juve Reza 06/04/2023: Dilated aortic root ([facility]) Comment: Seeing [facility] 10/06/2021: Discoloration and [...] 04/22/2021: Hypomagnesemia 06/13/2018: 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[facility]) Comment: --ppx ACV and cipro 12/16/2022: Increased weakness when ambulating No date: Inflammatory polyarthropathy ([facility]) 01/02/2018: Leg DVT (deep venous thromboembolism), acute, left ([facility]) Comment: --acute DVT gastrocnemius found 12/13/2017 --continue [...] can resume at discharge 11/28/2017: Multiple myeloma ([facility]) No date: Multiple myeloma in remission ([facility]) 10/01/2012: Obesity, Class I, BMI 30-34.9 No date: Osteoarthritis of both hands 06/25/2018: Pancytopenia due to chemotherapy ([facility]) Comment: --Transfuse PRBC and platelets per protocol --GCSF 06/07/2005: Peripheral autonomic neuropathy in disorders classified elsewhere 10/23/2019: Pulmonary hypertension, unspecified ([facility]) 11/13/2006: Spinal stenosis, lumbar region, without neurogenic claudication 12/27/2011: Tobacco abuse Comment: Quit 201204/12/2018: Type 2 diabetes mellitus without complication, without long-term current use of insulin ([facility]) 01/06/2014: Venous insufficiency, peripheral 12/31/2014: Vitamin D [...] daily. Take one daily in the morning lhirqvgszcb-zqcftjjza-ahofpqom (TRELEGY ELLIPTA) 100-62.5-25 mcg inhalation powder inhale [...] require further surveillance Hayde Ward MD Respiratory Mission documented [place] [address]-[place]-2024 NoteHNO ID: [id number] Author: HAYDE WARD MD Service: ? Author Type: Physician Type: Progress Notes Filed: 05/27/2024 11:56 Note Text: . Respiratory Mission Note Patient name: Ronnie Yarbrough PCP: Ovidio Vincent MD CC: Follow-up COPD HPI: Ronnie Yarbrough 73 year old male former [id number] smoker, quitting in 2011 with PMH significant [...] of deep veins of both lower extremities ([facility]) Comment: Eliquis started 02/2023, can stop 08/202309/30/2022: Advance directive discussed with patient Comment: Discussed 09/2022: up to date 03/15/2021: Allergic rhinitis 12/16/2022: At high risk for falls 06/13/2018: 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[facility]) Comment: Day: +12; Engrafted Protocol(s): 3422 1C Preparative regimen: melphalan Mobilization regimen: neupogen and plerixafor Stem cell source: apheresis CD34 cell dose (x10e6/kg): 5.14 Date of transplant: 06/15/2018 09/30/2022: Bilateral leg edema 04/21/2021: Cancer of the skin, basal cell Comment: excised 04/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 No date: Cervical spondylosis without myelopathy 03/30/2023: Chronic renal failure, stage 3a ([facility]) 03/15/2021: COPD (chronic obstructive pulmonary disease) ([facility]) 09/09/2021: Diabetic eye exam ([facility]) Comment: Last done 09/09/[address] Juve Reza 06/04/2023: Dilated aortic root ([facility]) Comment: Seeing [facility] 10/06/2021: Discoloration and thickening of nails both feet 07/04/2022: ED (erectile dysfunction) of organic origin 06/04/2023: Enlarged LA (left atrium) Comment: Seeing [place] [facility] 06/13/2018: Essential hypertension Comment: -On lisinopril 10mg daily ( home med) -Will d/c for now given hyperkalemia . 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[facility]) Comment: --ppx ACV and cipro 12/16/2022: Increased weakness when ambulating No date: Inflammatory polyarthropathy ([facility]) 01/02/2018: Leg DVT (deep venous thromboembolism), acute, left ([facility]) Comment: --acute DVT gastrocnemius found 12/13/2017 --continue [...] both hands 06/25/2018: 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) Comment: --Transfuse PRBC and platelets per protocol --GCSF 06/07/2005: Peripheral autonomic neuropathy in disorders classified elsewhere 10/23/2019: Pulmonary hypertension, unspecified (HCC) 11/13/2006: Spinal stenosis, lumbar region, without ne (more content not included)...[facility]09-09-2024 NoteHNO ID: [id number] Author: LESLYE WINTER PA-C Service: ? Author Type: Physician College And Career Counselor Type: Progress Notes Filed: 05/27/2024 08:40 Note Text: Chief Complaint Patient presents with: Hospital F/U [facility] Ronnie Yarbrough is a 73 year old male who presents here today for Hospital Discharge Follow up.. Patient was admitted to [facility] in [place] for septic arthritis of right elbow and [...] is leaving next week for vacation in [place]. Over patient states symptoms have significantly improved. [...] for falls 06/13/2018: 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[facility]) Comment: Day: +12; Engrafted Protocol(s): 3422 1C Preparative regimen: melphalan Mobilization regimen: neupogen and plerixafor Stem cell source: apheresis CD34 cell dose (x10e6/kg): 5.14 Date of transplant: 06/15/2018 09/30/2022: Bilateral leg edema 04/21/2021: Cancer of the skin, basal cell Comment: excised 04/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 No date: Cervical spondylosis without myelopathy 03/30/2023: Chronic renal failure, stage 3a ([facility]) 03/15/2021: COPD (chronic obstructive pulmonary disease) ([facility]) 09/09/2021: Diabetic eye exam ([facility]) Comment: Last done 09/09/[address] Juve Reza 06/04/2023: Dilated aortic root ([facility]) Comment: Seeing [place] [facility] 10/06/2021: Discoloration and thickening of nails both feet 07/04/2022: ED (erectile dysfunction) of organic origin 06/04/2023: Enlarged LA (left atrium) Comment: Seeing [place] [facility] 06/13/2018: Essential hypertension Comment: -On lisinopril 10mg daily ( home med) -Will d/c for now given hyperkalemia . 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[facility]) Comment: --ppx ACV and cipro 12/16/2022: Increased weakness when ambulating No date: Inflammatory polyarthropathy ([facility]) 01/02/2018: Leg DVT (deep venous thromboembolism), acute, left ([facility]) Comment: --acute DVT gastrocnemius found 12/13/2017 --continue [...] both hands 06/25/2018: 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) Comment: --Transfuse PRBC and platelets per protocol --GCSF 06/07/2005: Peripheral autonomic neuropathy in disorders classified elsewhere 10/23/2019: Pulmonary hypertension, unspecified ([facility]) 11/13/2006: Spinal stenosis, lumbar region, without neurogenic claudication 12/27/2011: Tobacco abuse Comment: Quit 201204/12/2018: Type 2 diabetes mellitus without complication, without long-term current use of insulin ([facility]) 01/06/2014: Venous insufficiency, peripheral 12/31/2014: Vitamin D deficiency 12/16/2022: Weakness of both lower extremities Previous Surgical History PAST SURGICAL HISTORY 01/28/2013: ANES ARTHROSCOPIC TOTAL SHOULDER REPLACEMENT; Right Comment: [facility] - complete right shoulder replaceement 2009: ARTHRD [...] BILATERAL OP SURGERY C (more content not included)...[facility]09-09-2024 History of Present illness Narrative* Leslye Winter PA-C - 05/27/2024 7:16 AM EDT Chief Complaint Patient presents with: Hospital F/U HPI Ronnie Yarbrough is a 73 year old male who presents here today for Hospital Discharge Follow up.. Patient was admitted to [facility] in [place] for septic arthritis of right elbow and [...] is leaving next week for vacation in [place]. Over patient states symptoms have significantly improved. No pain. No fevers. While in hospital, he was also found to be anemic and his BP was low. His bp medications were decreased. Past medical history, appointments, medications, allergies reviewed. Previous Medical History PAST MEDICAL HISTORY 02/24/2023: Acute thromboembolism of deep veins of both lower extremities ([facility]) Comment: Eliquis started 02/2023, can stop 08/202309/30/2022: Advance directive discussed with patient Comment: Discussed 09/2022: up to date 03/15/2021: Allergic rhinitis 12/16/2022: At high risk for falls 06/13/2018: 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[facility]) Comment: Day: +12; Engrafted Protocol(s): 3422 1C Preparative regimen: melphalan Mobilization regimen: neupogen and plerixafor Stem cell source: apheresis CD34 cell dose (x10e6/kg): 5.14 Date of transplant: 06/15/2018 09/30/2022: Bilateral leg edema 04/21/2021: Cancer of the skin, basal cell Comment: excised 04/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 No date: Cervical spondylosis without myelopathy 03/30/2023: Chronic renal failure, stage 3a ([facility]) 03/15/2021: COPD (chronic obstructive pulmonary disease) ([facility]) 09/09/2021: Diabetic eye exam ([facility]) Comment: Last done 09/09/[address] Juve Reza 06/04/2023: Dilated aortic root ([facility]) Comment: Seeing [facility] 10/06/2021: Discoloration and [...] 04/22/2021: Hypomagnesemia 06/13/2018: 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[facility]) Comment: --ppx ACV and cipro 12/16/2022: Increased weakness when ambulating No date: Inflammatory polyarthropathy ([facility]) 01/02/2018: Leg DVT (deep venous thromboembolism), acute, left ([facility]) Comment: --acute DVT gastrocnemius found 12/13/2017 --continue [...] can resume at discharge 11/28/2017: Multiple myeloma ([facility]) No date: Multiple myeloma in remission ([facility]) 10/01/2012: Obesity, Class I, BMI 30-34.9 No date: Osteoarthritis of both hands 06/25/2018: Pancytopenia due to chemotherapy ([facility]) Comment: --Transfuse PRBC and platelets per protocol --GCSF 06/07/2005: Peripheral autonomic neuropathy in disorders classified elsewhere 10/23/2019: Pulmonary hypertension, unspecified ([facility]) 11/13/2006: Spinal stenosis, lumbar region, without neurogenic claudication 12/27/2011: Tobacco abuse Comment: Quit 201204/12/2018: Type 2 diabetes mellitus without complication, without long-term current use of insulin ([facility]) 01/06/2014: Venous insufficiency, peripheral 12/31/2014: Vitamin D deficiency 12/16/2022: Weakness of both lower extremities Previous Surgical History PAST SURGICAL HISTORY 01/28/2013: ANES ARTHROSCOPIC TOTAL SHOULDER REPLACEMENT; Right Comment: [facility] - complete right shoulder replaceement 2009: ARTHRD [...] JOINT REPLACEMENT HX; Right Comment: shoulder 08/21/2023: SBFD-AXWO-QIWOSLGYLHBA-TOTAL REPLACE/BOTH COMPART; Left 2007: [facility] W/O FACETEC [...] daily. Take one daily in the morning twdkbndcdlp-xrlkeyhmy-ejfbeapu (TRELEGY ELLIPTA) 100-62.5-25 mcg inhalation powder inhale [...] Diabetic Foot Exam due on 09/30/2023 Covid-19 Vaccine(2022-24 season) due on 05/19/2024 Influenza Vaccine(1) due [...] which included preparing to see the patient, frcx-bj-fgne patient care, completing clinical documentation, obtaining and/or reviewing separately obtained history, performing a medically appropriate examination, counseling and educating the pat ient/family/caregiver, ordering medications, tests, or procedures, communicating with other HCPs (not separately reported), and communicating results to the patient/family/caregiver. documented in [facility] encounterFort [facility]08-[facility] Telephone encounter Note * Telephone Encounter - Marta Lui RN - 05/10/2024 11:21 AM EDT Requestor:Patient Patient is identified by name and birthdate: Yes Patient reminded to check with pharmacy in 24-48 hours: Yes Prescriber Verified: Yes Pharmacy benefits have been verified: No Pharmacy updated in [facility]: Yes Is medication controlled substance: [...] Take 1 tablet by mouth once daily. [facility]08-23-2024 Miscellaneous Notes* Telephone Encounter - Marta Lui RN - 05/10/2024 11:21 AM EDT Requestor:Patient Patient is identified by name and birthdate: Yes Patient reminded to check with pharmacy in 24-48 hours: Yes Prescriber Verified: Yes Pharmacy benefits have been verified: No Pharmacy updated in [facility]: Yes Is medication controlled substance: [...] by mouth once daily. documented in this encounterFort Hamilton Hospital08-23-2024 NoteHNO ID: [id number] Author: MARTA LUI RN Service: ? Author Type: Registered Nurse Type: Progress Notes Filed: 05/10/2024 11:26 Note Text: CDM Telephonic Outreach Provider Action/FYI [...] more often than normal? No Based on certified optician, the following disposition is advised: No symptoms or symptoms present, not severe. Routed to: No Action Needed MACO Education Provided this Outreach: No Upcoming appointments reviewed: Appointments for Next 60 Days Date Time Provider Location Dept Phone 05/27/2024 10:00 AM HAYDE WARD [place] [phone] 05/29/2024 8:00 AM [facility] [phone] 05/29/2024 9:20 AM [facility] (I-STAT/1.5T) [facility] [phone] 05/30/2024 9:20 AM [facility] [place] [phone] Marta Lui RN May 10, 2024 11:25 [facility]08-23-2024 History of Present illness Narrative* Marta Lui RN - 05/10/2024 11:15 AM EDT CDM Telephonic Outreach Provider Action/FYI [...] more often than normal? No Based on certified optician, the following disposition is advised: No symptoms or symptoms present, not severe. Routed to: No Action Needed MACO Education Provided this Outreach: No Upcoming appointments reviewed: Appointments for Next 60 Days Date Time Provider Location Dept Phone 05/27/2024 10:00 AM HAYDE WARD [facility] [phone] 05/29/2024 8:00 AM [facility] [phone] 05/29/2024 9:20 AM [facility] (I-STAT/1.5T) [facility] [phone] 05/30/2024 9:20 AM [facility] [phone] Marta Lui RN May 10, 2024 11:25 AM documented in this encounterFort [facility] Hospital08-23-2024 NotePatient Outreach ([facility]) RONNIE YARBROUGH I ([id number]) 1950 M Date Time Provider Department 05/10/24 MARTA LUI [facility] During your visit today, we recorded the following information about you: Matra Lui RN 05/10/2024 11:26 AM Signed CDM [...] more often than normal? No Based on certified optician, the following disposition is advised: No symptoms or symptoms present, not severe. Routed to: No Action Needed MACO Education Provided this Outreach: No Upcoming appointments reviewed: Appointments for Next 60 Days Date Time Provider Location Dept Phone 05/27/2024 10:00 AM HAYDE WARD [phone] 05/29/2024 8:00 AM [facility] [phone] 05/29/2024 9:20 AM MRI [facility] (I-STAT/1.5T) [facility] [phone] 05/30/2024 9:20 AM [facility] [phone] Marta Lui RN May 10, 2024 11:25 [...] 1 tablet by mouth once daily. - wwzvxvqpzxa-tshkmhoft-bexgodko (TRELEGY ELLIPTA) 100-62.5-25 mcg inhalation powder inhale [...] induced nausea and vomit (more content not included)...[facility]08-16-2024 NoteHNO ID: [id number] Author: MURRAY MOONEY MD Service: ? Author [...] of deep veins of both lower extremities ([facility]) Comment: Eliquis started 02/2023, can stop 08/202309/30/2022: Advance directive discussed with patient Comment: Discussed 09/2022: up to date 03/15/2021: Allergic rhinitis 12/16/2022: At high risk for falls 06/13/2018: 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[facility]) Comment: Day: +12; Engrafted Protocol(s): 3422 1C Preparative regimen: melphalan Mobilization regimen: neupogen and plerixafor Stem cell source: apheresis CD34 cell dose (x10e6/kg): 5.14 Date of transplant: 06/15/2018 09/30/2022: Bilateral leg edema 04/21/2021: Cancer of the skin, basal cell Comment: excised 04/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 No date: Cervical spondylosis without myelopathy 03/30/2023: Chronic renal failure, stage 3a ([facility]) 03/15/2021: COPD (chronic obstructive pulmonary disease) ([facility]) 09/09/2021: Diabetic eye exam ([facility]) Comment: Last done 09/09/[address] Juve Reza 06/04/2023: Dilated aortic root ([facility]) Comment: Seeing [facility] 10/06/2021: Discoloration and [...] 04/22/2021: Hypomagnesemia 06/13/2018: 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[facility]) Comment: --ppx ACV and cipro 12/16/2022: Increased weakness when ambulating No date: Inflammatory polyarthropathy ([facility]) 01/02/2018: Leg DVT (deep venous thromboembolism), acute, left ([facility]) Comment: --acute DVT gastrocnemius found 12/13/2017 --continue [...] can resume at discharge 11/28/2017: Multiple myeloma ([facility]) No date: Multiple myeloma in remission ([facility]) 10/01/2012: Obesity, Class I, BMI 30-34.9 No date: Osteoarthritis of both hands 06/25/2018: Pancytopenia due to chemotherapy ([facility]) Comment: --Transfuse PRBC and platelets per protocol --GCSF 06/07/2005: Peripheral autonomic neuropathy in disorders classified elsewhere 10/23/2019: Pulmonary hypertension, unspecified ([facility]) 11/13/2006: Spinal stenosis, lumbar region, without neurogenic claudication 12/27/2011: Tobacco abuse Comment: Quit 201204/12/2018: Type 2 diabetes mellitus without complication, without long-term current use of insulin (HCC) 01/06/2014: Venous insufficiency, peripheral 12/31/2014: Vitamin D deficiency 12/16/2022: Weakness of both lower extremities PAST SURGICAL HISTORY 01/28/2013: ANES ARTHROSCOPIC TOTAL SHOULDER REPLACEMENT; Right Comment: [facility] - complete right shoulder replaceement 2009: ARTHRD [...] HAND BILATERAL OP S (more content not included)...[facility]08-[facility] History of Present illness Narrative* Murray Mooney [...] for falls 06/13/2018: 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[facility]) Comment: Day: +12; Engrafted Protocol(s): 3422 1C Preparative regimen: melphalan Mobilization regimen: neupogen and plerixafor Stem cell source: apheresis CD34 cell dose (x10e6/kg): 5.14 Date of transplant: 06/15/2018 09/30/2022: Bilateral leg edema 04/21/2021: Cancer of the skin, basal cell Comment: excised 04/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 No date: Cervical spondylosis without myelopathy 03/30/2023: Chronic renal failure, stage 3a ([facility]) 03/15/2021: COPD (chronic obstructive pulmonary disease) ([facility]) 09/09/2021: Diabetic eye exam ([facility]) Comment: Last done 09/09/[address] Juve Reza 06/04/2023: Dilated aortic root ([facility]) Comment: Seeing [place] [facility] 10/06/2021: Discoloration and thickening of nails both feet 07/04/2022: ED (erectile dysfunction) of organic origin 06/04/2023: Enlarged LA (left atrium) Comment: Seeing [place] [facility] 06/13/2018: Essential hypertension Comment: -On lisinopril 10mg daily ( home med) -Will d/c for now given hyperkalemia . 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[facility]) Comment: --ppx ACV and cipro 12/16/2022: Increased weakness when ambulating No date: Inflammatory polyarthropathy ([facility]) 01/02/2018: Leg DVT (deep venous thromboembolism), acute, left ([facility]) Comment: --acute DVT gastrocnemius found 12/13/2017 --continue [...] both hands 06/25/2018: Pancytopenia due to chemotherapy ([facility]) Comment: --Transfuse PRBC and platelets per protocol --GCSF 06/07/2005: Peripheral autonomic neuropathy in disorders classified elsewhere 10/23/2019: Pulmonary hypertension, unspecified ([facility]) 11/13/2006: Spinal stenosis, lumbar region, without neurogenic claudication 12/27/2011: Tobacco abuse Comment: Quit 201204/12/2018: Type 2 diabetes mellitus without complication, without long-term current use of insulin ([facility]) 01/06/2014: Venous insufficiency, peripheral 12/31/2014: Vitamin D deficiency 12/16/2022: Weakness of both lower extremities PAST SURGICAL HISTORY 01/28/2013: ANES ARTHROSCOPIC TOTAL SHOULDER REPLACEMENT; Right Comment: [facility] - complete right shoulder replaceement 2008: ARTHRD [...] JOINT REPLACEMENT HX; Right Comment: shoulder 08/21/2023: XVTU-KHLU-HREDWWEDJDPB-TOTAL REPLACE/BOTH COMPART; Left 2007: [facility]ARRIS W/O FACETEC [...] two times a day with meals. Per [facility] metFORMIN (GLUCOPHAGE) 1,000 mg tablet [...] Take 1 tablet by mouth once daily. cvfcuuzqqew-vpshwcidu-emiznwdg (TRELEGY ELLIPTA) 100-62.5-25 mcg inhalation powder inhale [...] which included preparing to see the patient, cpnp-oe-cjho patient care, completing clinical documentation, obtaining and/or reviewing separately obtained history, counseling and educating the patient/family/caregiver, ordering medications, td ts, or procedures, independently interpreting results (not separately reported), and communicating results to the patient/family/caregiver. Electronically Signed: Murray Mooney MD May 03, 2024 documented in this encounterFort Hamilton Hospital08-09-2024 NoteHNO ID: [id number] Author: MARTA LUI RN Service: ? Author Type: Registered Nurse Type: Progress Notes Filed: 04/26/2024 14:30 Note Text: [facility] Telephonic Outreach Provider Action/FYI N/A 2nd attempt Contacted for: Routine Telephonic Outreach Contact made with patient: No, left message. Marta Lui RN April 26, 2024 2:30 [facility]08-09-2024 History of Present illness Narrative* Marta Lui RN - 04/26/2024 2:28 PM EDT [facility] Telephonic Outreach Provider Mahi/ANJU N/A 2nd attempt Contacted for: Routine Telephonic Outreach Contact made with patient: No, left message. Marta Lui RN April 26, 2024 2:30 PM documented in this encounterFort Hamilton Hospital08-09-2024 NotePatient Outreach ([facility]) RONNIE YARBROUGH I ([id number]) 1950 M Date Time Provider Department 04/26/24 MARTA LUI During your visit today, we recorded the following information about you: Marta Lui RN 04/26/2024 2:30 PM Signed [facility] Telephonic Outreach Provider Mahi/ANJU N/A 2nd attempt [...] Outreach [Other] Cmt: 2nd attempt Telephonic Outreach [facility] Home Monitoring Prescriptions as of 04/26/2024 - [...] 1 tablet by mouth once daily. - qwjymlgrkwr-jgupfqonl-ihwgjhjr (TRELEGY ELLIPTA) 100-62.5-25 mcg inhalation powder inhale [...] visit, subsequent [Z00*10/06/2021 Disc (more content not included)...[facility]08-08-2024 NoteHNO ID: [id number] Author: SLIME HERNANDEZ LPN Service: ? Author Type: LICENSED NURSE Type: Progress Notes Filed: 04/25/2024 08:15 Note Text: Scan on 04/25/2024 7:40 AM by ProviderJustyn PA-C: Consultation - PT/OT/SpeechSt. [facility] Hospital08-08-2024 History of Present illness Narrative* Slime Hernandez LPN - 04/25/2024 8:15 AM EDT Scan on 04/25/2024 7:40 AM by Justyn Clark PA-C: Consultation - PT/OT/Speech documented in this encounterFort Hamilton Hospital08-07-2024 NoteHNO ID: [id number] Author: MARTA LUI RN Service: ? Author Type: Registered Nurse Type: Progress Notes Filed: 04/24/2024 13:53 Note Text: [facility] Telephonic Outreach Provider Action/FYI N/A Contacted for: Routine Telephonic Outreach Contact made with patient: No, left message. Marta Lui RN April 24, 2024 1:53 [facility] History of Present illness Narrative* Marta Lui RN - 04/24/2024 1:46 PM EDT [facility] Telephonic Outreach Provider Action/FYI N/A Contacted for: Routine Telephonic Outreach Contact made with patient: No, left message. Marta Lui RN April 24, 2024 1:53 PM documented in this encounterFort Hamilton Hospital08-07-2024 NotePatient Outreach ([facility]) MAGDARONNIE Jessica ([id number]) 1950 M Date Time Provider Department 04/24/24 MARTA LUI During your visit today, we [...] 1 tablet by mouth once daily. - lnxhzibwlju-zqfxufrza-rabyqmbh (TRELEGY ELLIPTA) 100-62.5-25 mcg inhalation powder inhale [...] Discoloration and thickening o (more content not included)...[facility]07-30-[facility]24 Telephone encounter Note* Telephone Encounter - Ramu Alanis MA - 04/16/2024 9:15 AM EDT Faxed Order Demo Last O/V To [facility]. Ramu Alanis MA [facility]07-30-2024 Miscellaneous Notes* Telephone Encounter - Ramu Alanis MA - 04/16/2024 9:15 AM EDT Faxed Order Demo Last O/V To [facility]. Ramu Alanis MA documented in this encounterFort Hamilton Hospital07-30-2024 History of Present illness Narrative* Ovidio Vincent [...] CM 5.7 High CM Patient see Ophthalmology [facility] last visit 09/2023 Paroxysmal atrial fibrillation (HCC) - ICD9: 427.31, ICD10: I48.0 - [facility] Patient sees pulmonary last visit 11/2023 Past medical history, appointments, medications, allergies reviewed. 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 ([facility]) 02/24/2023 Eliquis started 02/2023, can stop 08/2023 [...] without myelopathy COPD (chronic obstructive pulmonary disease) ([facility]) 03/15/2021 Diabetic eye exam ([facility]) 09/09/2021 Last done 09/09/[address] Juve Reza Dilated aortic root ([facility]) 06/04/2023 Seeing [facility] Discoloration and thickening of nails both [...] transfusion Hypomagnesemia 04/22/2021 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[facility]) 06/13/2018 --ppx ACV and cipro Inflammatory polyarthropathy ([facility]) Leg DVT (deep venous thromboembolism), acute, left ([facility]) 01/02/2018 --acute DVT gastrocnemius found 12/13/2017 --continue [...] chemotherapy can resume at discharge Multiple myeloma ([facility]) 11/28/2017 Multiple myeloma in remission ([facility]) Obesity, Class I, BMI 30-34.9 10/01/2012 Osteoarthritis of both hands Pancytopenia due to chemotherapy ([facility]) 06/25/2018 --Transfuse PRBC and platelets per protocol --GCSF Peripheral autonomic neuropathy in disorders classified elsewhere 06/07/2005 Pulmonary hypertension, unspecified ([facility]) 10/23/2019 Spinal stenosis, lumbar region, without neurogenic claudication 11/13/2006 Tobacco abuse 12/27/2011 Quit 2013 Type 2 diabetes mellitus without complication, without long-term current use of insulin ([facility]) 04/12/2018 Venous insufficiency, peripheral 01/06/2014 Vitamin D deficiency 12/31/2014 Previous Surgical History PAST SURGICAL HISTORY Procedure Laterality Date ANES ARTHROSCOPIC TOTAL SHOULDER REPLACEMENT Right 01/28/2013 [facility] - complete right shoulder replaceement ARTHRD ANT [...] cyst removal JOINT REPLACEMENT HX Right shoulder IXRA-MIAY-NIAJJJNJOJZA-TOTAL REPLACE/BOTH COMPART Left 08/21/2023 [facility] W/O FACETEC [...] breath. (Patient not taking: Reported on 11/27/2023) zzmdqwvaryj-uvaekltld-genhgpph (TRELEGY ELLIPTA) 100-62.5-25 mcg inhalation powder inhale [...] which included preparing to see the patient, rche-yn-uzwv patient care, completing clinical documentation, performing a medically appropriate examination, counseling and educating the patient/family/caregiver and ordering medications, tests, or procedures. Ovidio Vincent MD documented in this encounterFort Hamilton Hospital07-30-2024 NoteHNO ID: [id number] Author: OVIDIO VINCENT MD Service: ? Author [...] CM 5.7 High CM Patient see Ophthalmology [facility] last visit 09/2023 Paroxysmal atrial fibrillation (HCC) - ICD9: 427.31, ICD10: I48.0 - patient see [facility] last visit 02/2024 Patient sees pulmonary last visit 11/2023 Past medical history, appointments, medications, allergies reviewed. 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 Day: +12; Engrafted Protocol(s): 3422 1C Preparative regimen: melphalan Mobilization regimen: neupogen and plerixafor Stem cell source: apheresis CD34 cell dose (x10e6/kg): 5.14 Date of transplant: 06/15/2018 Bilateral leg edema 09/30/2022 Cancer of the skin, 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 Cervical spondylosis without myelopathy COPD (chronic obstructive pulmonary disease) ([facility]) 03/15/2021 Diabetic eye exam ([facility]) 09/09/2021 Last done 09/09/[address] Juve Reza Dilated aortic root ([facility]) 06/04/2023 Seeing [facility] Discoloration and thickening of nails both feet 10/06/2021 ED (erectile dysfunction) of organic origin 07/04/2022 Enlarged LA (left atrium) 06/04/2023 Seeing [facility] Essential hypertension 06/13/2018 -On lisinopril 10mg [...] chemotherapy can resume at discharge Multiple myeloma (HCC) 11/28/2017 Multiple myeloma in remission ([facility]) Obesity, Class I, BMI 30-34.9 10/01/2012 (more content not included)...[facility]07-29-2024 NoteHNO ID: [id number] Author: MARTA LUI RN Service: ? Author Type: Registered Nurse Type: Progress Notes Filed: 04/15/2024 09:23 Note Text: [facility] Telephonic Outreach Provider Action/FYI N/A Contacted for: Routine Telephonic Outreach Contact made with patient: No, left message. Marta Lui RN April 15, 2024 9:22 [facility]07-29-2024 History of Present illness Narrative* Marta Lui RN - 04/15/2024 9:06 AM EDT [facility] Telephonic Outreach Provider Action/FYI N/A Contacted for: Routine Telephonic Outreach Contact made with patient: No, left message. Marta Lui RN April 15, 2024 9:22 AM documented in this encounterFort Hamilton Hospital07-29-2024 NotePatient Outreach ([facility]) RONNIE YARBROUGH I ([id number]) 1950 M Date Time Provider Department 04/15/24 MARTA LUI During your visit today, we recorded the following information about you: Marta Lui RN 04/15/2024 9:23 AM Signed [facility] Telephonic Outreach Provider Mahi/ANJU N/A [...] as needed for wheezing/shortness of breath. - warkknpknlh-dpubkmqtu-nmlgpmjf (TRELEGY ELLIPTA) 100-62.5-25 mcg inhalation powder inhale [...] Medicare annual wellness visit (more content not included)...[facility]07-22-2024 Telephone encounter Note* Telephone Encounter - Ramu [...] Alanis MA April 08, 2024 12:15 PM [facility]07-22-[facility]24 Miscellaneous Notes* Telephone Encounter - Ramu Alanis [...] 08, 2024 12:15 PM documented in this encounterFort Hamilton Hospital07-08-2024 Telephone encounter Note * Telephone Encounter - [...] ON AN EMPTY STOMACH Ovidio Vincent MD [facility]07-08-2024 Miscellaneous Notes* Telephone Encounter - Ovidio Vincent [...] 25, 2024 8:57 AM documented in this encounterFort Hamilton Hospital07-08-2024 Telephone encounter Note * Telephone Encounter - [...] Oquendo MA March 25, 2024 8:57 AM [facility]06-28-2024 NoteHNO ID: [id number] Author: MARTA LUI RN Service: ? Author Type: Registered Nurse Type: Progress Notes Filed: 03/15/2024 14:31 Note Text: [facility] Telephonic Outreach Provider Action/FYI N/A Contacted for: Routine Telephonic Outreach AND [facility] screening for food insecurity and [...] more often than normal? No Based on certified optician, the following disposition is advised: No symptoms or symptoms present, not severe. Routed to: No Action Needed MACO Education Provided this Outreach: No Upcoming appointments reviewed: Appointments for Next 60 Days Date Time Provider Location Dept Phone 04/16/2024 8:00 AM OVIDIO VINCENT [facility] [phone] 04/26/2024 8:00 AM LAB [facility] [place] [phone] 05/03/2024 10:10 AM MURRAY MOONEYdavina [place] [phone] Marta Lui RN March 15, 2024 2:30 [facility]06-28-2024 History of Present illness Narrative* Marta Lui RN - 03/15/2024 2:23 PM EDT [facility] Telephonic Outreach Provider Action/FYI N/A [...] more often than normal? No Based on certified optician, the following disposition is advised: No symptoms or symptoms present, not severe. Routed to: No Action Needed MACO Education Provided this Outreach: No Upcoming appointments reviewed: Appointments for Next 60 Days Date Time Provider Location Dept Phone 04/16/2024 8:00 AM OVIDIO VINCENT [facility] [place] [phone] 04/26/2024 8:00 AM LAB [facility] [place] [phone] 05/03/2024 10:10 AM MURRAY MOONEY [place] [phone] Marta Lui RN March 15, 2024 2:30 PM documented in this encounterFort Hamilton Hospital06-28-2024 NotePatient Outreach ([facility]) RONNIE YARBROUGH I ([id number]) 1950 M Date Time Provider Department 03/15/24 MARTA LUI During your visit today, we recorded the following information about you: Marta Lui RN 03/15/2024 2:31 PM Signed [facility] Telephonic Outreach Provider Action/FYI N/A Contacted for: Routine Telephonic Outreach AND [facility] screening for food insecurity and [...] more often than normal? No Based on certified optician, the following disposition is advised: No symptoms or symptoms present, not severe. Routed to: No Action Needed MACO Education Provided this Outreach: No Upcoming appointments reviewed: Appointments for Next 60 Days Date Time Provider Location Dept Phone 04/16/2024 8:00 AM OVIDIO VINCENT [facility] [place] [phone] 04/26/2024 8:00 AM LAB [facility] [place] [phone] 05/03/2024 10:10 AM MURRAY MOONEY [phone] Marta Lui RN March 15, 2024 2:30 [...] as needed for wheezing/shortness of breath. - lhsxnpkvgxw-vvkmfilrt-djmcxtop (TRELEGY ELLIPTA) 100-62.5-25 mcg inhalation powder inhale [...] (HCC) [N17.9] 06/16/2018 1 (more content not included)...[facility]06-26-[facility] Telephone encounter Note* Telephone Encounter - Chanelle [...] Nolan RN March 13, 2024 10:21 AM [facility]06-26-[facility] Miscellaneous Notes* Telephone Encounter - Chanelle Nolan [...] 13, 2024 10:21 AM documented in this encounterFort Hamilton Hospital06-19-2024 Note* Addendum Note - Ovidio Vincent MD - 03/06/2024 2:28 PM EDTAddended by: OVIDIO VINCENT on: 03/06/2024 02:28 PM Modules accepted: Orders [facility]06-19-2024 Miscellaneous Notes* Addendum Note - Ovidio Vincent MD - 03/06/2024 2:28 PM EDTAddended by: OVIDIO VINCENT on: 03/06/2024 02:28 PM Modules accepted: Orders documented in this encounterFort Hamilton Hospital06-19-2024 History of Present illness Narrative* Slime Hernandez LPN - 03/06/2024 1:56 PM EDT Scan on 03/06/2024 9:47 AM by ProviderJustyn PA-C: Consultation - Cardiology documented in this encounterFort Hamilton Hospital05-31-2024 History of Present illness Narrative* Nataliya Shaffer RN - 02/16/2024 12:57 PM EDT [facility] Telephonic Outreach Provider Action/FYJessica Contacted for: Routine Telephonic Outreach Contact made with patient: Yes Patient identified by name and date of . Discussed care with patient- bad connection, could not hear patient - mostly static- will try againanother time. documented in this encounterFort Hamilton Hospital05-30-2024 History of Present illness Narrative* Marta Lui RN - 02/15/2024 2:36 PM EDT [facility] Telephonic Outreach Provider Mahi/ANJU N/A Contacted for: Routine Telephonic Outreach Contact made with patient: No, left message. Marta Lui RN February 15, 2024 3:02 PM documented in this encounterFort Hamilton Hospital05-20-2024 History of Present illness Narrative* Angela Chau LPN - 02/05/2024 2:13 PM EDT Scan on 02/05/2024 10:45 AM by ProviderJustyn PA-C: Consultation - PT/OT/Speech documented in this encounterFort Hamilton Hospital05-02-2024 History of Present illness Narrative* Marianela Dent RN - 01/18/2024 12:48 PM EDT [facility] Telephonic Outreach Provider Action/FYJessica Falls and ADL's updated. Recently seen in office for Pre-Op [...] more often than normal? No Based on certified optician, the following disposition is advised: No symptoms or symptoms present, not severe. Routed to: No Action Needed MACO Education Provided this Outreach: No Marianela Dent RN January 18, 2024 1:02 PM documented in this encounterFort Hamilton Hospital05-01-2024 History of Present illness Narrative* Marta Lui RN - 01/17/2024 1:15 PM EDT [facility] Telephonic Outreach Provider Action/FYI N/A Contacted for: Routine Telephonic Outreach Contact made with patient: No, left message. Marta Lui RN January 17, 2024 1:18 PM documented in this encounterFort Hamilton Hospital04-30-2024 Telephone encounter Note * Telephone Encounter - Sofi Christian RN - 01/16/2024 12:00 PM EDT Chanelle calling from [facility] and requests patient's recent pre-op visit note from 01/03/24 be faxed to them at FAX: [phone]. Pt has upcoming procedure this . Faxed as requested. Sofi Christian RN [facility]04-30-2024 Miscellaneous Notes* Telephone Encounter - Sofi Christian RN - 01/16/2024 12:00 PM EDT Chanelle calling from [facility] and requests patient's recent pre-op visit note from 01/03/24 be faxed to them at FAX: [phone]. Pt has upcoming procedure this . Faxed as requested. Sofi Christian RN documented in this encounterFort Hamilton Hospital04-17-2024 History of Present illness Narrative* Ovidio Vincent [...] without myelopathy COPD (chronic obstructive pulmonary disease) ([facility]) 03/15/2021 Diabetic eye exam ([facility]) 09/09/2021 Last done 09/09/[address] Juve Reza Dilated aortic root ([facility]) 06/04/2023 [facility] Discoloration and thickening [...] transfusion Hypomagnesemia 04/22/2021 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[facility]) 06/13/2018 --ppx ACV and cipro Inflammatory polyarthropathy ([facility]) Leg DVT (deep venous thromboembolism), acute, left ([facility]) 01/02/2018 --acute DVT gastrocnemius found 12/13/2017 --continue [...] chemotherapy can resume at discharge Multiple myeloma ([facility]) 11/28/2017 Multiple myeloma in remission ([facility]) Obesity, Class I, BMI 30-34.9 10/01/2012 Osteoarthritis of both hands Pancytopenia due to chemotherapy ([facility]) 06/25/2018 --Transfuse PRBC and platelets per protocol --GCSF Peripheral autonomic neuropathy in disorders classified elsewhere 06/07/2005 Pulmonary hypertension, unspecified ([facility]) 10/23/2019 Spinal stenosis, lumbar region, without neurogenic claudication 11/13/2006 Tobacco abuse 12/27/2011 Quit 2013 Type 2 diabetes mellitus without complication, without long-term current use of insulin ([facility]) 04/12/2018 Venous insufficiency, peripheral 01/06/2014 Vitamin D deficiency 12/31/2014 Previous Surgical History PAST SURGICAL HISTORY Procedure Laterality Date ANES ARTHROSCOPIC TOTAL SHOULDER REPLACEMENT Right 01/28/2013 [facility] - complete right shoulder replaceement ARTHRD ANT [...] cyst removal JOINT REPLACEMENT HX Right shoulder TQBX-EQDL-AQZZQNODMCFA-TOTAL REPLACE/BOTH COMPART Left 08/21/2023 [facility] W/O FACETEC FORAMOT/DSC / VRT SGM CRV 2008 Laminectomy, cervical PAST [...] breath. (Patient not taking: Reported on 11/27/2023) xagohqqizqf-eqqkeoulb-oahopdzi (TRELEGY ELLIPTA) 100-62.5-25 mcg inhalation powder inhale [...] - 4.00 k/uL 0.82 (L) 0.96 (L) Solano% % 6.1 6.9 Abs Solano <0.87 k/uL 0.40 0.50 Eosin% % 0.2 [...] a low risk surgery. Based on the Heldaio's Simple Cardiac Risk Index patient has a less then 0.4% risk of a cardiac event. He has moderate exercise capacity. There is no juanjo for further cardiac testing and is clear medically for surgery. - if you require respiratory clearance this will need to be obtained from his sizing sponger. Dr. Hayde Ward with [facility]. 2. Epiretinal [...] routine. Ovidio Vincent MD documented in this encounterFort Hamilton Hospital04-10-2024 Evaluation note* Diagnosis Pre-op evaluation- Primary Preoperative examination, unspecified Type 2 diabetes mellitus with stage 3a chronic kidney disease, without long-term current use of insulin (HCC) Essential hypertension Unspecified essential hypertension documented in this encounter [facility]04-09-2024 Miscellaneous Notes* Telephone Encounter - Chanelle Nolan RN - 12/26/2023 4:42 PM EDT Pt called and is notified of providers message and instructions. Pt voices understanding. Chanelle Nolan RN * Telephone Encounter - Ovidio Vincent MD - 12/26/2023 4:36 PM EDT Let patient know labs placed to do a few days prior to Pre-op appt on 01/03/2024 * Telephone Encounter - Chanelle Nolan, ALICIA - 12/26/2023 4:21 PM EDT Chanelle with [...] getlabs or anything done. documented in this encounterFort Hamilton Hospital04-04-2024 History of Present illness Narrative* Marta Lui RN - 12/21/2023 10:10 AM EDT [facility] Telephonic Outreach Provider Action/FYI N/A Contacted for: Routine Telephonic Outreach & [facility] screening for food insecurity and transportation-no needs [...] more often than normal? No Based on certified optician, the following disposition is advised: No symptoms or symptoms present, not severe. Routed to: No Action Needed MACO Education Provided this Outreach: No Marta Lui RN December 21, 2023 10:16 AM documented in this encounterFort Hamilton Hospital03-11-2024 Instructions* Patient Instructions* Christine Gaming APRN.BACK TENDER PAPER MACHINE - 11/27/2023 8:39 AM EDT You would be due for CT Lung Screening in 07/2024. If you would like to proceed with screening CT at that time please reach out to me. PH. [phone]. CT Lung Screen Results The CT scan [...] to endocrinology. Others Lung Cancer Screening hotline: [phone] Lung Cancer Screening [phone] Billing Questions: or [email or web address] Specialist Providers: (Reny Hendricks CNP; Zena Holcomb PA-C; Jesica Griffin CNP; Mary Monroe CNP, Maria Isabel Sharma CNP; Lizzeth Wiseman CNP; Yani Gupta PA-C; Christine Gaming CNP; Alicia Mejia CNP; Jia Paniagua PA-C; America Olea CNP; Hermila Morejon CNP; Chanelle Gaston CNP): [phone] documented in this encounterFort Hamilton Hospital03-11-2024 History of Present illness Narrative* Christine Gaming [...] Most recent CT Chest 07/2023 ordered by sizing sponger for evaluation of lung nodules. Lung nodules [...] pre-disease performance w/o restriction. 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 Day: +12; Engrafted Protocol(s): 3422 1C Preparative regimen: melphalan Mobilization regimen: neupogen and plerixafor Stem cell source: apheresis CD34 cell dose (x10e6/kg): 5.14 Date of transplant: 06/15/2018 Bilateral leg edema 09/30/2022 Cancer of the skin, 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 Cervical spondylosis without myelopathy COPD (chronic obstructive pulmonary disease) ([facility]) 03/15/2021 Diabetic eye exam ([facility]) 09/09/2021 Last done 09/09/[address] Juve Reza Dilated aortic root ([facility]) 06/04/2023 Seeing [facility] Discoloration and thickening [...] transfusion Hypomagnesemia 04/22/2021 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[facility]) 06/13/2018 --ppx ACV and cipro Inflammatory polyarthropathy (HCC) Leg DVT (deep venous thromboembolism), acute, left ([facility]) 01/02/2018 --acute DVT gastrocnemius found 12/13/2017 --continue [...] chemotherapy can resume at discharge Multiple myeloma ([facility]) 11/28/2017 Multiple myeloma in remission ([facility]) Obesity, Class I, BMI 30-34.9 10/01/2012 Osteoarthritis of both hands Pancytopenia due to chemotherapy ([facility]) 06/25/2018 --Transfuse PRBC and platelets per protocol --GCSF Peripheral autonomic neuropathy in disorders classified elsewhere 06/07/2005 Pulmonary hypertension, unspecified ([facility]) 10/23/2019 Spinal stenosis, lumbar region, without neurogenic claudication 11/13/2006 Tobacco abuse 12/27/2011 Quit 2013 Type 2 diabetes mellitus without complication, without long-term current use of insulin ([facility]) 04/12/2018 Venous insufficiency, peripheral 01/06/2014 Vitamin D deficiency 12/31/2014 PAST SURGICAL HISTORY Procedure Laterality Date ANES ARTHROSCOPIC TOTAL SHOULDER REPLACEMENT Right 01/28/2013 [facility] - complete right shoulder replaceement ARTHRD ANT [...] cyst removal JOINT REPLACEMENT HX Right shoulder VGDF-[id number]-YTCFNNEGDDMW-TOTAL REPLACE/BOTH COMPART Left 08/21/2023 [facility] W/O FACETEC FORAMOT/DSC / VRT SGM [...] times a day. Per [facility] uyvoosqnbwd-uzsezxbnv-rkdlzmym (TRELEGY ELLIPTA) 100-62.5-25 mcg inhalation powder inhale [...] 12/27/2021 COVID-19 vaccine, age 12+ yr, bivalent ([employer]) 07/04/2022 Haemophilus influenzae b (Hib PRP-OMP) vaccine, [...] DATE OF EXAM: Jul 31 2023 10:47AM [facility] 0541 - CT CHEST WO IVCON / [...] No abnormality in the imaged upper abdomen. Medical Voucher Clerk (topogram) images: No additional findings. Impression: IMPRESSION: 1. Stable subcentimeter pulmonary nodules. No new suspicious pulmonary nodules 2. No thoracic lymphadenopathy 3. Again noted are multiple lytic lesions consistent with patient's history of multiple myeloma. Remote compression fractures of the vertebral bodies of T6 and T12. Multiple remote rib fractures. Cable Ferryboat Operator: [facility]ITALMerritt Transcribe Date/Time: Aug 01 2023 2:27P Dictated [...] cartilage.... Pulmonary Function Testing: SPIROMETRY BASELINE ONLY ([id number]) - ordered on 08/08/22 No textual results for order. PHYSICAL EXAM: BP 108/64 (BP Site: Right Arm) Pulse (!) 51 Temp 36.7 C (98.1 F) Ht 175.3 cm (5' 9) Wt 100.9 kg (222 lb 6.4 oz) SpO2 97% BMI 32.84 kg/m Deferred ASSESSMENT and RECOMMENDATIONS: 1. Screening for lung cancer: Six year risk for lung cancer: 5.19% Https://[email or web address]://www.O-film/tiny/01sk4 https://youtu.be/xFaVbGhSbO4 I have determined that the patient [...] to remaining abstinent from tobacco. Christine Gaming APRN.BACK TENDER PAPER MACHINE NPI #: November 27, 2023 8:34 AM documented in this encounterFort Hamilton Hospital03-07-2024 History of Present illness Narrative* Marta Lui RN - 11/23/2023 9:56 AM EST [facility] Telephonic Outreach Provider Action/FYI N/A [...] more often than normal? No Based on certified optician, the following disposition is advised: No symptoms [...] Dept Phone 11/27/2023 8:00 AM CHRISTINE G[facility] [phone] Marta Lui RN November 23, 2023 10:06 AM documented in this encounterFort Hamilton Hospital02-19-2024 Miscellaneous Notes* Telephone Encounter - Amy Monte - 11/06/2023 9:00 AM EST Patient has been scheduled for the below requested follow-up and a message was sent to him via [employer] with this appointment information Amy Boone Pss * Telephone Encounter - Dinorah Fernandez LPN - 11/06/2023 8:38 AM EST left VM that labs were normal. Will need 6 month OV and labs. Please set up with pt. Dinorah Fernandez LPN * Telephone Encounter - Dinorah Fernandez LPN - 11/06/2023 8:37 AM EST Images from the original note were not included. documented in this encounterFort Hamilton Hospital02-14-2024 History of Present illness Narrative* Loretta Leon [...] has completed his Eliquis. He follows with [facility]. No lower extremity edema. PAST [...] without myelopathy COPD (chronic obstructive pulmonary disease) ([facility]) 03/15/2021 Diabetic eye exam ([facility]) 09/09/2021 Last done 09/09/[address] Juve Reza Dilated aortic root ([facility]) 06/04/2023 Seeing [facility] Discoloration and thickening of nails both feet 10/06/2021 ED (erectile dysfunction) of organic origin 07/04/2022 Enlarged LA (left atrium) 06/04/2023 Seeing [facility] Essential hypertension 06/13/2018 -On lisinopril 10mg daily ( home med) -Will d/c for now given hyperkalemia . 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[facility]) ([facility]) 06/13/2018 --ppx ACV and cipro Inflammatory polyarthropathy ([facility]) Leg DVT (deep venous thromboembolism), acute, left ([facility]) 01/02/2018 --acute DVT gastrocnemius found 12/13/2017 --continue [...] chemotherapy can resume at discharge Multiple myeloma ([facility]) 11/28/2017 Multiple myeloma in remission ([facility]) Obesity, Class I, BMI 30-34.9 10/01/2012 Osteoarthritis of both hands Pancytopenia due to chemotherapy ([facility]) 06/25/2018 --Transfuse PRBC and platelets per protocol --GCSF Peripheral autonomic neuropathy in disorders classified elsewhere 06/07/2005 Pulmonary hypertension, unspecified ([facility]) 10/23/2019 Spinal stenosis, lumbar region, without neurogenic claudication 11/13/2006 Tobacco abuse 12/27/2011 Quit 2013 Type 2 diabetes mellitus without complication, without long-term current use of insulin ([facility]) 04/12/2018 Venous insufficiency, peripheral 01/06/2014 Vitamin D [...] by mouth two times a day. Per [facility] albuterol HFA (PROVENTIL HFA, VENTOLIN HFA) 90 mcg/actuation inhaler Inhale 2 Puffs as instructed every 6 hours as needed for wheezing/shortness of breath. xccmsbokbal-qzjmeqjkp-youbbfep (TRELEGY ELLIPTA) 100-62.5-25 mcg inhalation powder inhale [...] since quittin.9 Smokeless tobacco: Never Tobacco comments: 1/ pack of cigs; pipe smoker. None of [...] ANES ARTHROSCOPIC TOTAL SHOULDER REPLACEMENT Right 01/28/2013 [facility] - complete right shoulder replaceement ARTHRD ANT [...] cyst removal JOINT REPLACEMENT HX Right shoulder DZTN-FAVF-KQZMIYZUMZDZ-TOTAL REPLACE/BOTH COMPART Left 08/21/2023 [facility] W/O FACETEC [...] above and updated in EMR. IMMUNIZATIONS Prevnar 09/2019 Pneumovax - 02/2021 Influenza - 2022 [...] No abnormality in the imaged upper abdomen. Medical Voucher Clerk (topogram) images: No additional findings. ASSESSMENT/PLAN: 1. COPD with chronic bronchitis - ICD9: 491.20, ICD10: J44.89 (primary diagnosis) Continue Trelegy ellipta with as needed Albuterol. Up to date on annual influenza, pneumococcal and Covid 19 vaccines. 2. Former cigarette smoker - ICD9: V15.82, ICD10: Z87.891 Former 56-vmsu-moph smoker having quit in 2011 with sequelae of COPD. Previously enrolled in lung cancer screening at [facility]. Would like to follow with [facility]. Patient [...] eliquis for DVT. Instructed him to call [facility] to follow up and notify them that he has discontinued his Eliquis. Portions of this documentation were copied and pasted from previous office visit notes in order to provide a cohesive continuity of the history. The note has been reviewed and edited and updated as necessary. Loretta Leon PA-C documented in this encounterFort Hamilton Hospital02-09-2024 Miscellaneous Notes* Telephone Encounter - Slime Hernandez [...] taking. Leslye Winter PA-C documented in this encounterFort Hamilton Hospital01-26-2024 Discharge summary Author Daniel Gupta [facility] October 13, 2023 7:20am Note Date/Time October 13, 2023 7 :20am [facility] Physical Therapy [facility] [address] [place] [address] / REHABILITATION SERVICES DISCHARGE SUMMARY MR#: [id number] Acct: [id number] Name: RONNIE YARBROUGH Rep #: [id number] : 1950 73 From: Daniel Gupta DPT, OCS, CSCS Referring Dr.: KENDY BURROUGHS Status: REG RCR Insurance: [employer] [facility] SELF PAY INSURANCE Discharge Summary D/C summary: [...] at home are normal outside of cutting Skylabs. Pain L knee: Pain Intensity (Out of [...] Goal 5:: Plan to get back to [facility] Goal Progress: Goal Met Plan Plan: d/c to [facility] ex. D/C Information d/c sentence: If there are questions or concerns regarding this patient's physical therapy, please feel free to call me at [phone]. Thank you for the referral of thispatient. Sincerely, Daniel Gupta, DPT, OCS, CSCS Balance/Gait/Functional tests Balance/Special Test Scores WOMAC Total Score: 20 WOMAC Percentage: 79.1700 Improvement % Improvement: 85 <Electronically signed by Daniel Gupta DPT, OCS, CSCS> 10/13/23 0720 CC: Dr. Ovidio Vincent MD; KENDY BURROUGHS ~ EBG Signed [facility] Work Phone: [phone] 129-759212-29-2023 History of Present illness Narrative* Slime Hernandez LPN - 09/15/2023 8:59 AM EST Scan on 09/14/2023 6:03 PM by ProviderJustyn PA-C: Consultation - Ophthalmology documented in this encounterFort Hamilton Hospital12-01-2023 History of Present illness Narrative* Slime Henrandez LPN - 08/18/2023 8:11 AM EST Scan on 08/17/2023 4:03 PM by ProviderJustyn PA-C: Consultation - Cardiology documented in this [facility]11-16-2023 Miscellaneous Notes* Telephone Encounter - Adrianne eHrcules Cma - 08/03/2023 10:09 AM EST Pt notified and verbalized understanding Adrianne Hercules Cma * Telephone Encounter - Rebecca Jansen APRN.KELLEY - 08/03/2023 9:46 AM EST Please let patient know their labs are normal. documented in this encounterFort Hamilton Hospital11-14-2023 History of Present illness Narrative* Rebecca Jansen, ESSENCE.BACK TENDER PAPER MACHINE - 08/01/2023 10:39 AM EST Chief Complaint No chief complaint on file. HPI Ronnie Yarbrough is a 73 year old male who presents here today for Above Complaints.. Patient presents for pre-op clearance for knee replacement. Patient having procedure completed withDr. Ahumada at [facility]. Past medical history, appointments, medications, allergies reviewed. 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 Day: +12; Engrafted Protocol(s): 3422 1C Preparative regimen: melphalan Mobilization regimen: neupogen and plerixafor Stem cell source: apheresis CD34 cell dose (x10e6/kg): 5.14 Date of transplant: 06/15/2018 Bilateral leg edema 09/30/2022 Cancer of the skin, 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 Cervical spondylosis without myelopathy COPD (chronic obstructive pulmonary disease) ([facility]) 03/15/2021 Diabetic eye exam ([facility]) 09/09/2021 Last done 09/09/[address] Juve Reza Dilated aortic root ([facility]) 06/04/2023 [facility] Discoloration and thickening [...] transfusion Hypomagnesemia 04/22/2021 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[facility]) 06/13/2018 --ppx ACV and cipro Inflammatory polyarthropathy (HCC) Leg DVT (deep venous thromboembolism), acute, left ([facility]) 01/02/2018 --acute DVT gastrocnemius found 12/13/2017 --continue [...] chemotherapy can resume at discharge Multiple myeloma ([facility]) 11/28/2017 Multiple myeloma in remission ([facility]) Obesity, Class I, BMI 30-34.9 10/01/2012 Osteoarthritis of both hands Pancytopenia due to chemotherapy ([facility]) 06/25/2018 --Transfuse PRBC and platelets per protocol --GCSF Peripheral autonomic neuropathy in disorders classified elsewhere 06/07/2005 Pulmonary hypertension, unspecified ([facility]) 10/23/2019 Spinal stenosis, lumbar region, without neurogenic claudication 11/13/2006 Tobacco abuse 12/27/2011 Quit 2013 Type 2 diabetes mellitus without complication, without long-term current use of insulin ([facility]) 04/12/2018 Venous insufficiency, peripheral 01/06/2014 Vitamin D deficiency 12/31/2014 Previous Surgical History PAST SURGICAL HISTORY Procedure Laterality Date ANES ARTHROSCOPIC TOTAL SHOULDER REPLACEMENT Right 01/28/2013 [facility] - complete right shoulder replaceement ARTHRD ANT [...] (FLONASE) 50 mcg/actuation nasal spray Use 1 Forest in each nostril twice daily. Rinse mouth after use. carvedilol (COREG) 6.25 mg tablet Take 1 tablet by mouth twice daily. sewgukvscqm-ghsubskqu-bhbdfmna (TRELEGY ELLIPTA) 100-62.5-25 mcg inhalation powder inhale [...] BP Controlled (<130/80) due on 10/06/2022 Covid-19 Vaccine(2022- season) due on 05/19/2023 Colorectal Cancer Screening [...] with cardiology fro cardiac clearance. Rebecca Jansen APRN.BACK TENDER PAPER MACHINE documented in this encounterFort Hamilton Hospital11-13-2023 History of Present illness Narrative* Lizzeth Lindsay [...] IV DATA: Not applicable SIGNED BY: RT Bertrand(R) July 31, 2023 11:05 AM documented in this encounterFort Hamilton Hospital11-08-2023 Miscellaneous Notes* Telephone Encounter - Marta Lui [...] Patient is requesting a refill today during [facility] outreach for [facility] Home Monitoring. Thank you. Requested Prescriptions Pending Prescriptions Disp Refills Magnesium Chloride (SLOW-MAG) 71.5 mg TbEC 120 tablet 3 Sig: Take 2 tablets by mouth two times a day. documented in this encounterFort Hamilton Hospital11-08-2023 History of Present illness Narrative* Marta Lui RN - 07/26/2023 3:19 PM EST [facility] Telephonic Outreach Provider Action/FYI N/A [...] more often than normal? No Based on certified optician, the following disposition is advised: No symptoms or symptoms present, not severe. Routed to: No Action Needed [facility] Education Provided this Outreach: No Needs refill of Slow-Mag 71.5 TbEC 2 tabs twice daily sent to [facility]. Will pend to prescriber in separate refill encounter. Marta Lui RN July 26, 2023 3:23 PM documented in this encounterFort Hamilton Hospital11-07-2023 History of Present illness Narrative* Marta Lui RN - 07/25/2023 1:17 PM EST [facility] Telephonic Outreach Provider Action/FYI N/A Contacted for: Routine Telephonic Outreach Contact made with patient: No, left message. Marta Lui RN July 25, 2023 1:21 PM documented in this encounterFort Hamilton Hospital11-02-2023 Miscellaneous Notes* Telephone Encounter - Ramu Alanis MA - 07/20/2023 8:09 AM EDT Mailed letters to patient. Ramu Alanis MA * Telephone Encounter - Ovidio Vincent MD - 07/19/2023 5:50 PM EDT Both letters ready for patient. documented in this encounterFort Hamilton Hospital10-25-2023 History of Present illness Narrative* Loretta Leon [...] 2023, however, patient cancelled it secondary to sts-eb-xphkfv expense. Current therapy consists of Trelegy. No significant cough. Minimal wheezing. Exertional dyspnea with working out at [facility]. He does both resistance and cardio. He will get SOB with climbing stairs. Has noticed lower extremity edema since being on Duricef. PAST MEDICAL HISTORY Diagnosis Date Acute thromboembolism of deep veins of both lower extremities ([facility]) 02/24/2023 Eliquis started 02/2023, can stop 08/2023 Advance directive discussed with patient 09/30/2022 Discussed 09/2022: up to date Allergic rhinitis 03/15/2021 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 Day: +12; Engrafted Protocol(s): 3422 1C Preparative regimen: melphalan Mobilization regimen: neupogen and plerixafor Stem cell source: apheresis CD34 cell dose (x10e6/kg): 5.14 Date of transplant: 06/15/2018 Bilateral leg edema 09/30/2022 Cancer of the skin, 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 Cervical spondylosis without myelopathy COPD (chronic obstructive pulmonary disease) ([facility]) 03/15/2021 Diabetic eye exam ([facility]) 09/09/2021 Last done 09/09/[address] Juve Reza Dilated aortic root ([facility]) 06/04/2023 [facility] Discoloration and thickening of nails both feet 10/06/2021 ED (erectile dysfunction) of organic origin 07/04/2022 Enlarged LA (left atrium) 06/04/2023 [facility] Essential hypertension 06/13/2018 -On lisinopril 10mg daily ( home med) -Will d/c for now given hyperkalemia . 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[facility]) 06/13/2018 --ppx ACV and cipro Inflammatory polyarthropathy ([facility]) Leg DVT (deep venous thromboembolism), acute, left ([facility]) 01/02/2018 --acute DVT gastrocnemius found 12/13/2017 --continue [...] chemotherapy can resume at discharge Multiple myeloma ([facility]) 11/28/2017 Multiple myeloma in remission ([facility]) Obesity, Class I, BMI 30-34.9 10/01/2012 Osteoarthritis of both hands Pancytopenia due to chemotherapy ([facility]) 06/25/2018 --Transfuse PRBC and platelets per protocol --GCSF Peripheral autonomic neuropathy in disorders classified elsewhere 06/07/2005 Pulmonary hypertension, unspecified ([facility]) 10/23/2019 Spinal stenosis, lumbar region, without neurogenic claudication 11/13/2006 Tobacco abuse 12/27/2011 Quit 2013 Type 2 diabetes mellitus without complication, without long-term current use of insulin ([facility]) 04/12/2018 Venous insufficiency, peripheral 01/06/2014 Vitamin D deficiency 12/31/2014 Allergies: Gabapentin Other: See Comments Comment:Depression/suicidal ideation torsemide (DEMADEX) 20 mg tablet Take 1 tablet by mouth twice daily. . fluticasone (FLONASE) 50 mcg/actuation nasal spray Use 1 Forest in each nostril twice daily. Rinse mouth after use. cefADROxil (DURICEF) 500 mg capsule Take 1 capsule by mouth twice daily. carvedilol (COREG) 6.25 mg tablet Take 1 tablet by mouth twice daily. itzjncpmmxr-ulrxzzmtq-tmtolgwa (TRELEGY ELLIPTA) 100-62.5-25 mcg inhalation powder inhale [...] ANES ARTHROSCOPIC TOTAL SHOULDER REPLACEMENT Right 01/28/2013 [facility] - complete right shoulder replaceement ARTHRD ANT [...] by Hayde Ward M.D. LDCT chest, 08/2022 [facility] ASSESSMENT/PLAN: 1. COPD with chronic bronchitis - [...] ICD9: 793.19, ICD10: R91.8 Last LDCT at [facility] in August 2022 Lung-RADS category 3. Patient was scheduled for a follow up CT chest in February 2023. However, he cancelled it secondary to the amount of ulj-xg-ofymec expense. I am going to obtain a HRCT now. - CT CHEST WO IVCON 3. Need for influenza vaccination - ICD9: V04.81, ICD10: Z23 - INFLUENZA VACCINE, PRSV FREE, AGE 65+ YR, HIGH DOSE, QUADRIVALENT (FLUZONE HIGH-DOSE) 4. Former cigarette smoker - ICD9: V15.82, ICD10: Z87.891 Former 37-dsfu-wioj smoker having quit in 2011 with sequelae of COPD. See #2. Portions of this documentation were copied and pasted from previous office visit notes in order to provide a cohesive continuity of the history. The note has been reviewed and edited and updated as necessary. Loretta Leon PA-C documented in this encounterFort Hamilton Hospital10-10-2023 History of Present illness Narrative* Marta Lui RN - 06/27/2023 11:04 AM EDT [facility] Telephonic Outreach Provider Action/FYI N/A Contacted for: Routine Telephonic Outreach Contact made with patient: No, left message. Marta Lui RN June 27, 2023 11:08 AM documented in this encounterFort Hamilton Hospital10-06-2023 Miscellaneous Notes* Telephone Encounter - Ramu Alanis MA - 06/23/2023 3:10 PM EDT Faxed. Ramu Alanis MA * Telephone Encounter - Ovidio Vincent MD - 06/23/2023 2:15 PM EDT form completed and ready to be returned. * Telephone Encounter - Slime Hernandez LPN - 06/23/2023 10:20 AM EDT Received fax from [facility] wanting to see if pt can stop Eliquis before procedure. Form on pcp's desk. Slime Hernandez LPN documented in this encounterFort Hamilton Hospital09-25-2023 Instructions* Patient Instructions* Ovidio Vincent MD - 06/12/2023 1:34 PM EDT Also belt picker Claritin 10 mg and take one a day for the next three weeks. If you start to notice issues with starting your urination stop it. documented in this encounterFort Hamilton Hospital09-25-2023 History of Present illness Narrative* Ovidio Vincent [...] of deep veins of both lower extremities ([facility]) 02/24/2023 Eliquis started 02/2023, can stop 08/2023 Advance directive discussed with patient 09/30/2022 Discussed 09/2022: up to date Allergic rhinitis 03/15/2021 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 Day: +12; Engrafted Protocol(s): 3422 1C Preparative regimen: melphalan Mobilization regimen: neupogen and plerixafor Stem cell source: apheresis CD34 cell dose (x10e6/kg): 5.14 Date of transplant: 06/15/2018 Bilateral leg edema 09/30/2022 Cancer of the skin, 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 Cervical spondylosis without myelopathy COPD (chronic obstructive pulmonary disease) ([facility]) 03/15/2021 Diabetic eye exam ([facility]) 09/09/2021 Last done 09/09/[address] Juve Reza Dilated aortic root ([facility]) 06/04/2023 Seeing Matthew Cardio Discoloration and thickening [...] transfusion Hypomagnesemia 04/22/2021 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[facility]) 06/13/2018 --ppx ACV and cipro Inflammatory polyarthropathy (HCC) Leg DVT (deep venous thromboembolism), acute, left ([facility]) 01/02/2018 --acute DVT gastrocnemius found 12/13/2017 --continue [...] chemotherapy can resume at discharge Multiple myeloma ([facility]) 11/28/2017 Multiple myeloma in remission ([facility]) Obesity, Class I, BMI 30-34.9 10/01/2012 Osteoarthritis of both hands Pancytopenia due to chemotherapy ([facility]) 06/25/2018 --Transfuse PRBC and platelets per protocol --GCSF Peripheral autonomic neuropathy in disorders classified elsewhere 06/07/2005 Pulmonary hypertension, unspecified ([facility]) 10/23/2019 Spinal stenosis, lumbar region, without neurogenic claudication 11/13/2006 Tobacco abuse 12/27/2011 Quit 2013 Type 2 diabetes mellitus without complication, without long-term current use of insulin ([facility]) 04/12/2018 Venous insufficiency, peripheral 01/06/2014 Vitamin D deficiency 12/31/2014 Previous Surgical History PAST SURGICAL HISTORY Procedure Laterality Date ANES ARTHROSCOPIC TOTAL SHOULDER REPLACEMENT Right 01/28/2013 [facility] - complete right shoulder replaceement ARTHRD ANT [...] Take 1 tablet by mouth twice daily. ejjuvguoktu-leiumnyhr-agbajfbm (TRELEGY ELLIPTA) 100-62.5-25 mcg inhalation powder inhale [...] Claritin Since he will be gone in [place] for 3 weeks he was given a script for Duricef 500 mg twice a day to start if ear pain starts to increase. Requested Prescriptions Signed Prescriptions Disp Refills fluticasone (FLONASE) 50 mcg/actuation nasal spray 1 Each 1 Sig: Use 1 [place] in each nostril twice daily. Rinse mouth after use. cefADROxil (DURICEF) 500 mg capsule 20 capsule 0 Sig: Take 1 capsule by mouth twice daily. Ovidio Vincent MD documented in this encounterFort Hamilton Hospital09-18-2023 Miscellaneous Notes* Telephone Encounter - Ovidio Vincent [...] PM EDT Per Cardiology note scanned into [facility] on 05/02/23 pt was to increase carvedilol to 6.25mg twice daily. Ace Downs LPN * Telephone Encounter - Ovidio Vincent MD - 06/05/2023 1:00 PM EDT Find out from patient if his Coreg does was increased to 6.25 by [facility] back in April. Since my records show he was on 3.125 mg twice a day by use and [facility] is saying he filled a script in [place] under Dr. Gamble with [facility] on 05/02/2023 for the 6.25 [...] pt is supposed to be on. Call [phone]. Ref# [id number] Arlet Clemens LPN documented in this encounterFort Hamilton Hospital09-15-2023 History of Present illness Narrative* Slime Hernandez LPN - 06/02/2023 10:07 AM EDT Scan on 06/01/2023 3:57 PM by Provider, SPENCER Alejandra: Echo documented in this encounterFort Hamilton Hospital09-11-2023 Miscellaneous Notes* Telephone Encounter - Ovidio Vincent MD - 05/29/2023 12:22 PM EDT The following approved medication requests have been transmitted electronically. Requested Prescriptions Signed Prescriptions Disp Refills carvedilol (COREG) 3.125 mg tablet 180 tablet 1 Sig: Take 1 tablet by mouth twice daily. Ovidio Vincent MD documented in this encounterFort Hamilton Hospital09-08-2023 History of Present illness Narrative* Hayde Mejia Ma - 05/26/2023 8:28 AM EDT Scan on 05/25/2023 4:58 PM by Provider, External, PAAndriyC: Consultation - PT/OT/Speech documented in this encounterFort Hamilton Hospital09-07-2023 Discharge summary Author Deysi Bass [facility] May 25, 2023 12:34pm Note Date/Time May 25, 2023 12:35pm [facility] Physical Therapy [facility] [address] [place] [address] [address] [place] [address] / REHABILITATION SERVICES DISCHARGE SUMMARY MR#: [id number] Acct: [id number] Name: RONNIE YARBROUGH Rep #: [id number] : 1950 72 From: Deysi Bass PT, Cert. MDT Referring Dr.: Dr. Ovidio Vincent MD Status: REG [facility] Insurance: [facility] SELF PAY INSURANCE Patient Information Patient [...] ON SLANT BOARD. WE STARTED WALKING TO [facility] ROOM AND PATIENT HAD NEAR [...] by Deysi Bass PT, Cert. MDT> 05/25/23 [id number] CC: Dr. Ovidio Vincent MD; Dr. Shabbir Davila MD ~ SHEEBA Signed [facility] Work Phone: 1(828) 541-848109-07-2023 History of Present illness Narrative* Marni Gonzalez PA-C - 05/25/2023 12:26 PM EDT This note was created using Cinnafilmriter. Subjective Ronnie Yarbrough is a 72 year [...] of deep veins of both lower extremities ([facility]) 02/24/2023 Eliquis started 02/2023, can stop 08/2023 Advance directive discussed with patient 09/30/2022 Discussed 09/2022: up to date Allergic rhinitis 03/15/2021 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 Day: +12; Engrafted Protocol(s): 3422 1C Preparative regimen: melphalan Mobilization regimen: neupogen and plerixafor Stem cell source: apheresis CD34 cell dose (x10e6/kg): 5.14 Date of transplant: 06/15/2018 Bilateral leg edema 09/30/2022 Cancer of the skin, 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 Cervical spondylosis without myelopathy COPD (chronic obstructive pulmonary disease) ([facility]) 03/15/2021 Diabetic eye exam ([facility]) 09/09/2021 Last done 09/09/21 No diabetic retinopathy [...] transfusion Hypomagnesemia 04/22/2021 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[facility]) 06/13/2018 --ppx ACV and cipro Inflammatory polyarthropathy ([facility]) Leg DVT (deep venous thromboembolism), acute, left ([facility]) 01/02/2018 --acute DVT gastrocnemius found 12/13/2017 --continue [...] chemotherapy can resume at discharge Multiple myeloma ([facility]) 11/28/2017 Multiple myeloma in remission ([facility]) Obesity, Class I, BMI 30-34.9 10/01/2012 Osteoarthritis of both hands Pancytopenia due to chemotherapy ([facility]) 06/25/2018 --Transfuse PRBC and platelets per protocol --GCSF Peripheral autonomic neuropathy in disorders classified elsewhere 06/07/2005 Pulmonary hypertension, unspecified ([facility]) 10/23/2019 Spinal stenosis, lumbar region, without neurogenic claudication 11/13/2006 Tobacco abuse 12/27/2011 Quit 2013 Type 2 diabetes mellitus without complication, without long-term current use of insulin ([facility]) 04/12/2018 Venous insufficiency, peripheral 01/06/2014 Vitamin D deficiency 12/31/2014 Current Outpatient Medications Medication Sig Dispense Refill sfesyqbpeag-dlpbshoba-qwhesxdt (TRELEGY ELLIPTA) 100-62.5-25 mcg inhalation powder inhale [...] ANES ARTHROSCOPIC TOTAL SHOULDER REPLACEMENT Right 01/28/2013 [facility] - complete right shoulder replaceement ARTHRD ANT [...] RSV Marni Gonzalez PA-C documented in this encounterFort Hamilton Hospital09-01-2023 Miscellaneous Notes* Telephone Encounter - Mellisa Herrera Ma - 05/19/2023 3:12 PM EDT Patient has been identified by name and date of : Yes Requested Prescriptions Pending Prescriptions Disp Refills koqztjzibki-bazadfqkf-ocuqypnh (TRELEGY ELLIPTA) 100-62.5-25 mcg inhalation powder 1 Each 11 RX INSTRUCTIONS: Patient aware RX will be sent to pharmacy. No need to notify patient. Will need 90 days supply. Confirmed [facility] pharmacy. Mellisa Herrera Ma documented in this encounterFort Hamilton Hospital09-01-2023 Miscellaneous Notes* Telephone Encounter - Sehy Liu LPN - 05/19/2023 8:43 AM EDT Pt to call and advise if he wants his Torsemide 20 mg tablet, Cialis tabs to come from [facility]. They also requested for pt Celebrex and records show pt is not longer on this. Received a call from [facility] but pt has been getting from local pharmacy. Need pt's approval and check to see if taking (1) tablet twice a day. If okay to send to send to [facility] will need to be a 90 day supply. [facility] will notify pt to call the office. Shey Liu LPN documented in this encounterFort Hamilton Hospital08-31-2023 History of Present illness Narrative* Yareli Soriano RN - 05/18/2023 10:18 AM EDT [facility] Telephonic Outreach Provider Action/FYI Contacted for: Routine [...] more often than normal? No Based on certified optician, the following disposition is advised: No symptoms or symptoms present, not severe. Routed to: No Action Needed MACO Education Provided this Outreach: No Yareli Soriano RN May 18, 2023 10:19 AM documented in this encounterFort Hamilton Hospital08-15-2023 Miscellaneous Notes* Telephone Encounter - Hayde Mejia Ma - 05/02/2023 1:18 PM EDT Fax went through delivered, placed signed order into scanning Hayde Mejia Ma * Telephone Encounter - Ramu lAanis MA - 05/01/2023 5:07 PM EDT Faxed to [facility]. Ramu Alanis MA * Telephone Encounter [...] 05/01/2023 10:16 AM EDT Received fax from [facility] requesting order to stop Eliquis for 2 days prior to pt's procedure. Form on Dr Vincent's desk for review. Fax back to [phone]. Slime Hernandez LPN documented in this encounterFort Hamilton Hospital08-15-2023 History of Present illness Narrative* Slime Hernandez LPN - 05/02/2023 11:11 AM EDT Scan on 05/02/2023 10:18 AM by Provider, SPENCER Alejandra: Consultation - Cardiology documented in this encounterFort Hamilton Hospital08-14-2023 Miscellaneous Notes* Telephone Encounter - Sangita Martinez LPN - 05/01/2023 8:46 AM EDT MCKENNA: 03/20/23 Patient phones requesting refills as follows: Requested Prescriptions Pending Prescriptions Disp Refills TRELEGY ELLIPTA 100-62.5-25 mcg inhalation powder [Pharmacy Med Name: TRELEGY ELLIPTA 100-62.5-25] Sig: inhale 1 puff by mouth and INTO THE LUNGS once daily Please review and advise. Sangita Martinez LPN documented in this encounterFort Hamilton Hospital08-02-2023 History of Present illness Narrative* Marta Lui RN - 04/19/2023 11:34 AM EDT [facility] Telephonic Outreach Provider Action/FYI Experiencing some dizziness upon standing at times since starting carvedilol 3.125 mg BID-ordered 04/05/23. No falls. Using rollator walker. Does miniature set designer place for a few seconds before ambulating [...] more often than normal? No Based on certified optician, the following disposition is advised: No symptoms or symptoms present, not severe. Routed to: No Action Needed MACO Education Provided this Outreach: No-declines Marta Lui RN April 19, 2023 11:48 AM documented in this encounterFort Hamilton Hospital07-27-2023 Miscellaneous Notes* Telephone Encounter - Adonis Mcgovern Ma - 04/13/2023 11:27 AM EDT Spoke with patient and he has monitor from [facility]. We called [facility] and they will talk him through the procedure to remove it. Adonis Mcgovern Ma documented in this encounterFort Hamilton Hospital07-20-2023 Miscellaneous Notes* Telephone Encounter - Ramu Alanis MA - 04/06/2023 1:52 PM EDT Sent my chart message on 04/05/2023=. Did contact patient to verify he received the message. Instructed patient to watch his BP. Check 1-2 times a day notify of any high or low BP's [facility] did contact patient and he [...] MA - 04/05/2023 3:33 PM EDT Received powderman results. Given to PCP for review. Ramu Alanis MA documented in this encounterFort Hamilton Hospital07-17-2023 History of Present illness Narrative* Marta Lui RN - 04/03/2023 1:28 PM EDT Care Coordination Deferred Outreach Provider Action / FYI: OV with PCP 03/30/23. PCC outreach deferred 2 weeks. Deferred outreach to patient at this time due to: Visit with provider today-OV with PCP 03/30/23 Next Outreach date: 04/13/23 Marta Lui RN April 03, 2023 1:31 PM documented in this encounterFort Hamilton Hospital07-16-2023 Miscellaneous Notes* Telephone Encounter - Heath Junior [...] - 04/02/2023 10:[address] [facility]: Refills have been requested for the following medications: SLOW-MAG 71.5 mg TbEC [Dr. Anand Alvarez] Preferred pharmacy: [id number] [place] [address] - [address] [facility] [phone] Delivery method: Pickup Medication renewals requested in this message routed separately: Tadalafil (CIALIS) 20 mg tab(s) [Dr. Chiki Vincent] documented in this encounterFort Hamilton Hospital07-15-2023 Miscellaneous Notes* Telephone Encounter - Ovidio Vincent [...] 10/10/23 Slime Hernandez LPN documented in this encounterFort Hamilton Hospital07-14-2023 Miscellaneous Notes* Telephone Encounter - Leslye Winter [...] Thanks. 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/13/2018 --ppx ACV and cipro Inflammatory polyarthropathy ([facility]) Leg DVT (deep venous thromboembolism), acute, left ([facility]) 01/02/2018 --acute DVT gastrocnemius found 12/13/2017 --continue [...] chemotherapy can resume at discharge Multiple myeloma ([facility]) 11/28/2017 Multiple myeloma in remission ([facility]) Obesity, Class I, BMI 30-34.9 10/01/2012 Osteoarthritis of both hands Pancytopenia due to chemotherapy ([facility]) 06/25/2018 --Transfuse PRBC and platelets per protocol --GCSF Peripheral autonomic neuropathy in disorders classified elsewhere 06/07/2005 Pulmonary hypertension, unspecified ([facility]) 10/23/2019 Spinal stenosis, lumbar region, without neurogenic claudication 11/13/2006 Tobacco abuse 12/27/2011 Quit 2013 Type 2 diabetes mellitus without complication, without long-term current use of insulin ([facility]) 04/12/2018 Venous insufficiency, peripheral 01/06/2014 Vitamin D deficiency 12/31/2014 Previous Surgical History PAST SURGICAL HISTORY Procedure Laterality Date ANES ARTHROSCOPIC TOTAL SHOULDER REPLACEMENT Right 01/28/2013 [facility] - complete right shoulder replaceement ARTHRD ANT [...] tablet by mouth once daily. As needed arifiewdvhg-ikwsmcnzc-cfqjhexk (TRELEGY ELLIPTA) 100-62.5-25 mcg inhalation powder Inhale [...] (HCC) - ICD9: 453.40, ICD10: I82.403 Cont trippise Leslye Winter PA-C documented in this encounterFort Hamilton Hospital07-13-2023 Instructions* Patient Instructions* Leslye Winter PA-C - 03/30/2023 7:19 AM EDT Please set up diabetic eye exam. documented in this encounterFort Hamilton Hospital07-07-2023 Miscellaneous Notes* Telephone Encounter - Hayde Mejia Ma - 03/24/2023 2:39 PM EDT Patient was notified Hayde Mejia Ma * Telephone Encounter - Ovidio Vincent MD - 03/24/2023 2:32 PM EDT Let patient know electrolyte panel, CBC and thyroid labs were all normal. documented in this encounterFort Hamilton Hospital07-06-2023 History of Present illness Narrative* Slime Hernandez LPN - 03/23/2023 7:12 AM EDT Scan on 03/22/2023 11:04 PM by External Provider, SPENCER: Consultation - Emergency Medicine documented in this encounterFort Hamilton Hospital07-05-2023 Miscellaneous Notes* Telephone Encounter - Ramu Alanis MA - 03/22/2023 4:13 PM EDT Spoke with patient and gave him results and instructions. Patient asked if he could just see a nuclear plant instrument technician mynor. Provider wanted him to go to the ER. Patient first said he would go tomorrow. Expressed to patient that this could be life threatening issue. He said he would go later today to [facility]. Faxed information to the [facility] ER. Ramu Alanis MA * [...] copy of the EKG. documented in this encounterFort Hamilton Hospital07-05-2023 History of Present illness Narrative* Pao Lewis LPN - 03/22/2023 2:39 PM EDT Patient presents for EKG per Loretta Leon PA-C. Denies any problems at this time. Tolerated procedure well. Pao Lewis LPN documented in this encounterFort Hamilton Hospital07-03-2023 Miscellaneous Notes* Addendum Note - Loretta Leon PA-C - 03/20/2023 2:03 PM EDTAddended by: LORETTA LEON on: 03/20/2023 02:03 PM Modules accepted: Orders documented in this encounterFort Hamilton Hospital07-03-2023 History of Present illness Narrative* Loretta Leon [...] without myelopathy COPD (chronic obstructive pulmonary disease) ([facility]) 03/15/2021 Diabetic eye exam ([facility]) 09/09/2021 Last done 09/09/21 No diabetic retinopathy [...] transfusion Hypomagnesemia 04/22/2021 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[facility]) 06/13/2018 --ppx ACV and cipro Inflammatory polyarthropathy ([facility]) Leg DVT (deep venous thromboembolism), acute, left ([facility]) 01/02/2018 --acute DVT gastrocnemius found 12/13/2017 --continue [...] chemotherapy can resume at discharge Multiple myeloma ([facility]) 11/28/2017 Multiple myeloma in remission ([facility]) Obesity, Class I, BMI 30-34.9 10/01/2012 Osteoarthritis of both hands Pancytopenia due to chemotherapy ([facility]) 06/25/2018 --Transfuse PRBC and platelets per protocol --GCSF Peripheral autonomic neuropathy in disorders classified elsewhere 06/07/2005 Pulmonary hypertension, unspecified ([facility]) 10/23/2019 Spinal stenosis, lumbar region, without neurogenic claudication 11/13/2006 Tobacco abuse 12/27/2011 Quit 2013 Type 2 diabetes mellitus without complication, without long-term current use of insulin ([facility]) 04/12/2018 Venous insufficiency, peripheral 01/06/2014 Vitamin D [...] by mouth once daily.^Disp: 90 tablet^Rfl: 1 ikkzztrfprl-fslcqcqzj-nqelrdfu (TRELEGY ELLIPTA) 100-62.5-25 mcg inhalation powder^Inhale 1 [...] since quittin.2 Smokeless tobacco: Never Tobacco comments: 1/ pack of cigs; pipe smoker. None of [...] ANES ARTHROSCOPIC TOTAL SHOULDER REPLACEMENT Right 01/28/2013 [facility] - complete right shoulder replaceement ARTHRD ANT [...] 07/30/2018, 07/07/2016 Pneumovax - 03/15/2021 Influenza - 06/14/2022 COVID-19 - [...] by Hayde Ward M.D. LDCT chest, 08/2022 [facility] ASSESSMENT/PLAN: 1. 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HCC) [...] cancelled it secondary to the amount of ciy-jr-yeolai expense. Will reach out to Desi De Anda, long term care social worker, to see if there is any financial assistance available. 4. Former cigarette smoker - ICD9: V15.82, ICD10: Z87.891 Former 04-mgvm-swfw smoker having quit in 2012 with sequelae of COPD. See #3. Portions of this documentation were copied and pasted from previous office visit notes in order to provide a cohesive continuity of the history. The note has been reviewed and edited and updated as necessary. Loretta Leon PA-C documented in this encounterFort Hamilton Hospital06-19-2023 Miscellaneous Notes* Telephone Encounter - Ovidio Vincent MD - 03/06/2023 10:00 PM EDT The following approved medication requests have been transmitted electronically. Requested Prescriptions Signed Prescriptions Disp Refills torsemide (DEMADEX) 20 mg tablet 90 tablet 1 Sig: Take 1.5 tablets by mouth twice daily. . Authorizing Provider: OVIDIO VINCENT MD * Telephone Encounter - Arlet [place] LPN - 03/06/2023 12:12 PM EDT [place] with [facility] calls to verify directions [...] patient. Arlet Clemens LPN documented in this encounterFort Hamilton Hospital06-07-2023 History of Present illness Narrative* Ramu Alanis MA - 02/22/2023 5:55 PM EDT Scan on 02/17/2023 10:27 PM by External Provider, MATTYC: Consultation - Emergency Medicine Ramu Alanis MA documented in this encounterFort Hamilton Hospital06-02-2023 History of Present illness Narrative* Ovidio Vincent MD - 02/17/2023 8:40 AM EDT Chief Complaint Patient presents with: Edema HPI Ronnie Yarbrough is a 72 year old male who presents here today for leg swelling. Office visit - follow up - continued edema. Patient having continued swelling in both legs. Patient was seen in [facility] ER 02/10/2023 for bilateral leg [...] as an appt with Dr. Enrique Sueat [facility] in January. Past medical history, appointments, medications, allergies reviewed. 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 Cervical spondylosis without myelopathy COPD (chronic obstructive pulmonary disease) ([facility]) 03/15/2021 Diabetic eye exam ([facility]) 09/09/2021 Last done 09/09/21 No diabetic retinopathy [...] transfusion Hypomagnesemia 04/22/2021 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[facility]) 06/13/2018 --ppx ACV and cipro Inflammatory polyarthropathy ([facility]) Leg DVT (deep venous thromboembolism), acute, left ([facility]) 01/02/2018 --acute DVT gastrocnemius found 12/13/2017 --continue [...] chemotherapy can resume at discharge Multiple myeloma ([facility]) 11/28/2017 Multiple myeloma in remission ([facility]) Obesity, Class I, BMI 30-34.9 10/01/2012 Osteoarthritis of both hands Pancytopenia due to chemotherapy ([facility]) 06/25/2018 --Transfuse PRBC and platelets per protocol --GCSF Peripheral autonomic neuropathy in disorders classified elsewhere 06/07/2005 Pulmonary hypertension, unspecified ([facility]) 10/23/2019 Spinal stenosis, lumbar region, without neurogenic claudication 11/13/2006 Tobacco abuse 12/27/2011 Quit 2013 Type 2 diabetes mellitus without complication, without long-term current use of insulin ([facility]) 04/12/2018 Venous insufficiency, peripheral 01/06/2014 Vitamin D deficiency 12/31/2014 Previous Surgical History PAST SURGICAL HISTORY Procedure Laterality Date ANES ARTHROSCOPIC TOTAL SHOULDER REPLACEMENT Right 01/28/2013 [facility] - complete right shoulder replaceement ARTHRD ANT [...] Take 1 tablet by mouth once daily. mblillgwyep-abwlcdedc-bzsekgkf (TRELEGY ELLIPTA) 100-62.5-25 mcg inhalation powder Inhale [...] to be sent home. documented in this encounterFort Hamilton Hospital05-30-2023 History of Present illness Narrative* Hayde Mejia Ma - 02/14/2023 10:42 AM EDT Scan on 02/10/2023 4:14 PM by External Provider, PA-C: Consultation - Emergency Medicine Scan on 02/10/2023 9:39 AM by External Provider, PA-C: X-ray documented in this encounterFort [facility] Hospital[facility] History of Present illness Narrative* Rebecca Cruz [...] 8:44 AM EDT POPULATION HEALTH NAVIGATION OUTREACH Action/I 01/25/23 Discuss/due [employer] Care Gaps: ~Colorectal Cancer Screening Outcome: ~Left message on voice mail and sent [employer] message. Patient Identified by Name and : [...] 25, 2023 8:44 AM documented in this encounterFort Hamilton Hospital05-03-2023 History of Present illness Narrative* Mara Guardado RN - 01/18/2023 10:18 AM EDT CDM Telephonic Outreach Provider Action/ Pt not available. Pt's , Bren, confirms that she is involved in patient's care. Bren states patient is not having any new or increased CDM symptoms. Bren states patient is doing very well. States patient was at [facility] after sustaining a cracked vertebrae in June. [...] more often than normal? No Based on certified optician, the following disposition is advised: Symptoms present, not severe. Routed to: No Action Needed MACO Education Provided this Outreach: No Mara Guardado RN January 18, 2023 10:26 AM * Mara Guardado RN - 01/17/2023 3:28 PM EDT [facility] Telephonic Outreach Provider Action/FYI Made call #1 to pt. NA/Left vm. Contacted for: Routine Telephonic Outreach Contact made with patient: No, left message. Mara Guardado RN January 17, 2023 3:29 PM documented in this encounterFort Hamilton Hospital05-01-2023 Miscellaneous Notes* Telephone Encounter - Jeanine Dunne RN - 01/16/2023 3:10 PM EDT Patient returned call. He says everything is going well after surgery and he has a follow up @ [facility] tomorrow. Cancelled Monday's appointment. Jeanine Dunne RN * Telephone Encounter - Slime Hernandez LPN - 01/16/2023 3:04 PM EDT Pt is scheduled for [facility] f/u 01/20/[address] [...] appointment. Slime Hernandez LPN documented in this encounterFort Hamilton Hospital05-01-2023 History of Present illness Narrative* Slime Hernandez LPN - 01/16/2023 2:39 PM EDT TRANSITION CARE MANAGEMENT (TCM) INITIAL CONTACT Provider Action/FYI: none Initial contact with patient post discharge, spoke to patient. Patient identified by name and . TRANSITION CARE MANAGEMENT: No flowsheet data found. SUMMARY: -Pt discharged from [facility] and [facility] rehab on 01/14/23. -Follow up appointment on 01/20/23 with Leslye Winter. -Medication review done yes. -Admitted for: microdisectomy CONCERNS: None verbalized NEW MEDICATIONS: none MEDS HELD/DISCONTINUED: none BRIEF HOSPITAL COURSE: documented in this encounterFort Hamilton Hospital04-27-2023 History of Present illness Narrative* Ramu Alanis MA - 01/12/2023 2:16 PM EDT Scan on 01/11/2023 9:00 PM by External Provider, PAAndriyC: Consultation - Emergency Medicine Ramu Alanis MA documented in this encounterFort Hamilton Hospital04-26-[address] Davila [facility] January 11, 2023 8:54pm Note Date/Time January 11, 2023 8:4 7pm [facility] Medical Records Department [address] [place] [id number] Discharge Summary 01/11/232041 MR#: [id number] Acct: [id number] Name: RONNIE YARBROUGH Rep #:[id number] : 1950 72 From: Shabbir Davila MD PCP: Dr. Ovidio Vincent MD Status:ADM IN Location: [place] [address] Providers Date of Admission: 01/05/23 Primary Care [...] home with . Discharge home with 01/14/2023, [facility] PT/OT. Physical Exam Const alert General Appearance: [...] pain Additional Instructions: Discharge home with 01/14/2023, [facility] PT/OT. Please Follow Up With: Bry Sue MD When: As scheduled. Meaningful Use Info Meaningful Use Diagnoses (Choose all that apply): None applicable Discharge Plan Admission Admit Date/Time: 01/05/23 14:55 Primary Reason for Your Visit: Debility. Attending Provider: Shabbir Davila Chi Primary Care Provider: Ovidio Vincent Instructions Additional Instructions / Restrictions: Discharge home with 01/14/2023, [facility] PT/OT. Discharge Orders/Prescriptions Prescriptions: New Avtar Ellipta [...] 1,000 mcg Capsule 1,000 mcg PO DAILY yjegnoscofj-ktvadjyec-kflefpdj 100-62.5-25 mcg Blister With Device 1 inh [...] Vincent MD; Dr. Shabbir Davila MD~ Signed [facility] Work Phone: 1(837) 327-430704-24-2023 History of Present illness Narrative* Ramu Alanis MA - 01/09/2023 12:32 PM EDT Scan on 01/05/2023 8:04 PM by External Provider: Consultation - Emergency Medicine Ramu Alanis MA' documented in this encounterFort Hamilton Hospital04-21-[address] Davila [facility] January 06, 2023 1:07pm Note Date/Time January 06, 2023 11: 55am [facility] Medical Records Department [address] [place] [id number] Progress Note - Pharmacy 01/06/23 1128 MR#: [id number] Acct: [id number] Name: RONNIE YARBROUGH Rep #:[id number] : 1950 72 From: Angelica Quinteros PCP: Dr. Ovidio Vincent MD Status:ADM IN Location: [place] [address] TCU RX Drug Regimen Review Subjective: 72 [...] Tablet PO 25 mg DAILY TG Administration Terbinafine HCl 250 mg 01/06/23 06:00 [...] by Shabbir Davila MD> CC: ~ Signed [facility] Work Phone: 1(843) 114-579004-20-2023 History and physical note Author Dr. Davila [facility] January 05, 2023 7:55pm Note Date/Time January 05, 2023 7:4 8pm [facility] Medical Records Department [address] [place] [address] History & Physical Exam 01/05/231940 MR#: [id number] Acct: [id number] Name: RONNIE YARBROUGH Rep #:[id number] : 1950 72 From: Shabbir Davila MD PCP: Dr. Ovidio Vincent MD Status:ADM IN Location: [place] [address] HPI - General General Date of Admission: 01/05/23 Date of Service: 01/05/23 Chief Complaint: Here for rehabilitation. HPI Narrative RONNIE YARBROUGH, is a 72 Male who presents with followin12/28/2022 Admit to [facility]. 12/28/2022 Dr. Bry Sue performed posterior T11-T12 microdecompression due to severe spinal nerve and cord involvement. Patient has constant back pain, bilateral lower extremity numbness, has been wheelchair bound for last week. 12/29/2022 PT/OT. SCD for DVT prophylaxis. 01/05/2023 Admit to TCU with debility, here for rehabilitation, strengthening, prior to discharge home with . [facility] Medical History (Updated 01/05/23 @ 19:45 [...] Vincent MD; Dr. Shabbir Davila MD~ Signed [facility] Work Phone: 1(293) 695-954304-05-2023 History of Present illness Narrative* Mara Guardado [...] walk. He said he is going to [facility] tomorrow, 12/22, and will be having [...] like to speak with a social work horses or mules teamster to help give you support for any [...] you up for automated weekly questionnaires through [employer]. This is an easy way for us [...] PtOutreach and End outreach. documented in this encounterFort Hamilton Hospital04-04-2023 Miscellaneous Notes* Telephone Encounter - Arlet Clemens [...] D level were ok. documented in this [facility]04-03-[facility] History of Present illness Narrative* Vivian Gambino [...] 19, 2022 11:16 AM documented in this encounterFort Hamilton Hospital04-03-2023 Miscellaneous Notes* Telephone Encounter - Ramu Alanis [...] quickly. Ramu Alanis MA documented in this encounterFort Hamilton Hospital03-31-2023 History of Present illness Narrative* Ovidio Vincent [...] as an appt with Dr. Enrique Sueat [facility] in January. Past medical history, appointments, medications, allergies reviewed. 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 Day: +12; Engrafted Protocol(s): 3422 1C Preparative regimen: melphalan Mobilization regimen: neupogen and plerixafor Stem cell source: apheresis CD34 cell dose (x10e6/kg): 5.14 Date of transplant: 06/15/2018 Bilateral leg edema 09/30/2022 Cancer of the skin, 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 Cervical spondylosis without myelopathy COPD (chronic obstructive pulmonary disease) ([facility]) 03/15/2021 Diabetic eye exam ([facility]) 09/09/2021 Last done 09/09/21 No diabetic retinopathy [...] Hyperlipidemia Hypomagnesemia 04/22/2021 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[facility]) 06/13/2018 --ppx ACV and cipro Inflammatory polyarthropathy ([facility]) Leg DVT (deep venous thromboembolism), acute, left ([facility]) 01/02/2018 --acute DVT gastrocnemius found 12/13/2017 --continue [...] chemotherapy can resume at discharge Multiple myeloma ([facility]) 11/28/2017 Multiple myeloma in remission ([facility]) Obesity 10/01/2012 Obesity, Class I, BMI 30-34.9 10/01/2012 Osteoarthritis of both hands Pancytopenia due to chemotherapy ([facility]) 06/25/2018 --Transfuse PRBC and platelets per protocol --GCSF Peripheral autonomic neuropathy in disorders classified elsewhere 06/07/2005 Pulmonary hypertension, unspecified ([facility]) 10/23/2019 Reflux esophagitis Spinal stenosis, lumbar region, without neurogenic claudication 11/13/2006 Tobacco abuse 12/27/2011 Quit 2013 Type 2 diabetes mellitus without complication, without long-term current use of insulin ([facility]) 04/12/2018 Venous insufficiency, peripheral 01/06/2014 Vitamin D deficiency 12/31/2014 Previous Surgical History PAST SURGICAL HISTORY Procedure Laterality Date ANES ARTHROSCOPIC TOTAL SHOULDER REPLACEMENT Right 01/28/2013 [facility] - complete right shoulder replaceement ARTHRD ANT [...] Take 1 capsule by mouth twice daily. skwvrxeuruf-rqdurdanw-cinuorjk (TRELEGY ELLIPTA) 100-62.5-25 mcg inhalation powder Inhale [...] Lymph 1.00 - 4.00 k/uL 0.69 (L) Solano% % 6.0 Abs Solano <0.87 k/uL 0.27 Eosin% % 0.9 Abs [...] Negative Ketones, Urine Trace, Negative Negative Specific Eden, Ur 1.005 - 1.030 1.024 Hemoglobin/Blood,Ur Negative, [...] which included preparing to see the patient, exfl-jn-noux patient care, completing clinical documentation, performing a medically appropriate examination, counseling and educating the patient/family/caregiver and ordering medications, tests, or procedures. Keep future routine appt. Ovidio Vincent MD documented in this encounterFort Hamilton Hospital03-14-2023 History of Present illness Narrative* Rebecca Hurtado [facility] - 11/29/2022 5:07 PM EDT POPULATION HEALTH [...] SCREENING due on 10/13/2022 Navigation Signature: Rebecca Barnes November 29, 2022 5:12 PM documented in this encounterFort Hamilton Hospital03-10-2023 History of Present illness Narrative* Mara Guardado RN - 11/25/2022 11:42 AM EST INSIGHT CDM TELEPHONIC OUTREACH FYI: Pt denies any new or worsening CDM symptoms. Pt currently in [place] until mid November. Pt denies needs, questions, [...] like to speak with a social work horses or mules teamster to help give you support for any [...] you up for automated weekly questionnaires through [employer]. This is an easy way for us [...] PtOutreach and End outreach. documented in this encounterFort Hamilton Hospital03-09-2023 History of Present illness Narrative* Mara Guardado RN - 11/24/2022 4:40 PM EST [facility] TELEPHONIC OUTREACH FYI: Made call #1 to patient. NA/Left VM. Contact made with patient: No - Left message Dolores my name is Mara Guardado RN your [employer] Heat [employer] [facility] I am calling todayfor your bi-weekly check in. I am sorry I missed your call. I will reach out to you again tomorrow.(if the third call I will reach out to you again next week) Enter next patient outreach date for the following day using the Track Pt Outreach. End outreach. documented in this encounterFort Hamilton Hospital02-20-2023 History of Present illness Narrative* Mitchel Jones [...] by mouth twice daily.^Disp: 60 capsule^Rfl: 5 qfrqlnrrzzr-tnrtawokp-eypotftl (TRELEGY ELLIPTA) 100-62.5-25 mcg inhalation powder^Inhale 1 [...] answered in detail. Mitchel Jones MD cc: Mariomo Angelita Vincent MD documented in this encounterFort Hamilton Hospital02-16-2023 Instructions* Patient Instructions* Ovidio Vincent MD - 11/03/2022 8:28 AM EST Come get non-fasting labs for kidnies and electrolytes on 11/11/2022 or 11/12/2022 documented in this encounterFort Hamilton Hospital02-16-2023 Nurse Note* Ramu Alanis MA - 11/03/2022 8:15 AM EST 135/81 True BP 134/83 143/74 148/86 120/84 129/78 documented in this encounterFort Hamilton Hospital02-16-2023 History of Present illness Narrative* Ovidio Vincent [...] bronchitis with chronic obstructive pulmonary disease (COPD) ([facility]) 12/30/2014 Acute on chronic systolic CHF (congestive heart failure) ([facility]) 10/04/2019 Advance directive discussed with patient 09/30/2022 Discussed 09/2022: up to date Allergic rhinitis 03/15/2021 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 Day: +12; Engrafted Protocol(s): 3422 1C Preparative regimen: melphalan Mobilization regimen: neupogen and plerixafor Stem cell source: apheresis CD34 cell dose (x10e6/kg): 5.14 Date of transplant: 06/15/2018 Cancer of the skin, 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 Cervical spondylosis without myelopathy COPD (chronic obstructive pulmonary disease) ([facility]) 03/15/2021 Diabetic eye exam ([facility]) 09/09/2021 Last done 09/09/21 No diabetic retinopathy [...] Hyperlipidemia Hypomagnesemia 04/22/2021 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[facility]) 06/13/2018 --ppx ACV and cipro Inflammatory polyarthropathy ([facility]) Leg DVT (deep venous thromboembolism), acute, left ([facility]) 01/02/2018 --acute DVT gastrocnemius found 12/13/2017 --continue [...] chemotherapy can resume at discharge Multiple myeloma ([facility]) 11/28/2017 Multiple myeloma in remission ([facility]) Obesity 10/01/2012 Obesity, Class I, BMI 30-34.9 10/01/2012 Osteoarthritis of both hands Pancytopenia due to chemotherapy ([facility]) 06/25/2018 --Transfuse PRBC and platelets per protocol --GCSF Peripheral autonomic neuropathy in disorders classified elsewhere 06/07/2005 Pulmonary hypertension, unspecified ([facility]) 10/23/2019 Reflux esophagitis Spinal stenosis, lumbar region, without neurogenic claudication 11/13/2006 Tobacco abuse 12/27/2011 Quit 2013 Type 2 diabetes mellitus without complication, without long-term current use of insulin ([facility]) 04/12/2018 Venous insufficiency, peripheral 01/06/2014 Vitamin D deficiency 12/31/2014 Previous Surgical History PAST SURGICAL HISTORY Procedure Laterality Date ANES ARTHROSCOPIC TOTAL SHOULDER REPLACEMENT Right 01/28/2013 [facility] - complete right shoulder replaceement ARTHRD ANT [...] Take 1 capsule by mouth twice daily. cnswuckhpqr-rnmzajqgd-thxbwkzr (TRELEGY ELLIPTA) 100-62.5-25 mcg inhalation powder Inhale [...] weeks Ovidio Vincent MD documented in this encounterFort Hamilton Hospital02-10-2023 History of Present illness Narrative* Hayde Ward MD - 10/28/2022 9:30 AM EST Images from the original note were not included. . [facility] Note Patient name: Ronnie Yarbrough PCP: Ovidio Vincent MD CC: COPD HPI: Ronnie Yarbrough 72 year old male former 40 pack year smoker, quitting 2011 with PMH significant for MM s/p BMT, COPD/CB, HTN, HLD, diastolic heart failure, inflammatory polyarthropathy and pulmonarynodules. At [facility] changed inhaled therapy to Trelegy Ellipta with [...] images of his low-dose chest CT from [facility] compared to his chest CT. Impression described in HPI PAST MEDICAL HISTORY Diagnosis Date Acute bronchitis with chronic obstructive pulmonary disease (COPD) ([facility]) 12/30/2014 Acute on chronic systolic CHF (congestive heart failure) ([facility]) 10/04/2019 Advance directive discussed with patient 09/30/2022 Discussed 09/2022: up to date Allergic rhinitis 03/15/2021 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 Day: +12; Engrafted Protocol(s): 3422 1C Preparative regimen: melphalan Mobilization regimen: neupogen and plerixafor Stem cell source: apheresis CD34 cell dose (x10e6/kg): 5.14 Date of transplant: 06/15/2018 Cancer of the skin, 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 Cervical spondylosis without myelopathy COPD (chronic obstructive pulmonary disease) ([facility]) 03/15/2021 Diabetic eye exam ([facility]) 09/09/2021 Last done 09/09/21 No diabetic retinopathy [...] Hyperlipidemia Hypomagnesemia 04/22/2021 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[facility]) 06/13/2018 --ppx ACV and cipro Inflammatory polyarthropathy ([facility]) Leg DVT (deep venous thromboembolism), acute, left ([facility]) 01/02/2018 --acute DVT gastrocnemius found 12/13/2017 --continue [...] chemotherapy can resume at discharge Multiple myeloma ([facility]) 11/28/2017 Multiple myeloma in remission ([facility]) Obesity 10/01/2012 Obesity, Class I, BMI 30-34.9 10/01/2012 Osteoarthritis of both hands Pancytopenia due to chemotherapy ([facility]) 06/25/2018 --Transfuse PRBC and platelets per protocol --GCSF Peripheral autonomic neuropathy in disorders classified elsewhere 06/07/2005 Pulmonary hypertension, unspecified ([facility]) 10/23/2019 Reflux esophagitis Spinal stenosis, lumbar region, without neurogenic claudication 11/13/2006 Tobacco abuse 12/27/2011 Quit 2013 Type 2 diabetes mellitus without complication, without long-term current use of insulin ([facility]) 04/12/2018 Venous insufficiency, peripheral 01/06/2014 Vitamin D [...] twice daily with meals.^Disp: 60 tablet^Rfl: 5 wuyikppisxh-alwuqlsde-cvrwiyck (TRELEGY ELLIPTA) 100-62.5-25 mcg inhalation powder^Inhale 1 [...] 6 months 3. Former cigarette smoker -Former 16-yjzk-duop smoker having quit in 2012 -Lung cancer screening Hayde Ward MD [facility] documented in this encounterFort Hamilton Hospital02-06-2023 Miscellaneous Notes* Telephone Encounter - Nargis Fox Ma - 10/24/2022 10:58 AM EST Pt should have refills remaining at pharmacy. Metformin refilled on 08/29/22 #60 with 5 refills. Ptnotified via [employer]. Nargis Fox Ma documented in this encounterFort Hamilton Hospital02-06-2023 Miscellaneous Notes* Telephone Encounter - Ramu Alanis [...] if you could send an Rx to [facility] [place], like you did for his ? Please advise patient. documented in this [facility]01-26-[facility]23 Miscellaneous Notes* Telephone Encounter - Rmau Alanis MA - 10/13/2022 4:51 PM EST Spoke with patient to verify he sees Dr. Reza. Ramu Alanis MA documented in this [facility]01-26-[facility]23 Miscellaneous Notes* Telephone Encounter - Ramu Alanis MA - 10/13/2022 4:50 PM EST Patient notified and voiced understanding. Raum Alanis MA * Telephone Encounter - Oivdio Vincent MD - 10/13/2022 4:28 PM EST Let patient know his urine tests, blood count, Mg, lipid panel, prostate test, A1c, electrolytes, liver functions and kidney functions were all ok. His HDL was slightly low and increase physical activity can help increase. documented in this [facility]01-26-2023 Miscellaneous Notes* Telephone Encounter - Ovidio Vincent MD - 10/13/2022 1:07 PM EST Noted. * Telephone Encounter - Ramu Alanis MA - 10/13/2022 11:51 AM EST Contacted [facility] and their chart reads that patient received Shingrix 02/01/21; 04/07/21; 06/14/22 09/05/22. Ramu Alanis MA documented in this [facility]01-19-2023 Miscellaneous Notes* Telephone Encounter - Ramu Alanis [...] issues with his hardware. documented in this encounterFort Hamilton Hospital01-16-2023 History of Present illness Narrative* Xochilt Adamson [...] 03, 2022 8:08 AM documented in this encounterFort Hamilton Hospital01-13-2023 Miscellaneous Notes* Telephone Encounter - Ramu Alanis MA - 09/30/2022 2:17 PM EST Sent Consult Office referral Office visits Insurance card Demo Waiting on x-ray results. Ramu Alanis MA ' documented in this encounterFort Hamilton Hospital01-13-2023 History of Present illness Narrative* [place] - 09/30/2022 10:42 AM EST POPULATION HEALTH NAVIGATION OUTREACH Action/FYI Mission Support: Called pt to schedule an appt in Pain Management. Lvm for pt to call [phone] for scheduling. Pt identified by name and [...] 30, 2022 10:42 AM documented in this encounterFort Hamilton Hospital01-13-2023 Nurse Note* Ramu Alanis MA - 09/30/2022 9:16 AM EST Faxed request to [facility] for most currently exam. Faxed referral request to Dr. Scherer. Ramu Alanis MA documented in this encounterFort Hamilton Hospital01-13-2023 History of Present illness Narrative* Ovidio Vincent MD - 09/30/2022 8:00 AM EST Images from the original note were not included. Medicare Yearly Visit Medical B eligibilty date Not able to find Date of last exam 10/06/2021 PAST MEDICAL HISTORY PAST MEDICAL HISTORY Diagnosis Date Acute bronchitis with chronic obstructive pulmonary disease (COPD) ([facility]) 12/30/2014 Acute on chronic systolic CHF (congestive heart failure) ([facility]) 10/04/2019 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 Day: +12; Engrafted Protocol(s): 3422 1C Preparative regimen: melphalan Mobilization regimen: neupogen and plerixafor Stem cell source: apheresis CD34 cell dose (x10e6/kg): 5.14 Date of transplant: 06/15/2018 Cervical spondylosis without myelopathy COPD (chronic obstructive pulmonary disease) ([facility]) 03/15/2021 Diabetic eye exam ([facility]) 09/09/2021 Last done 09/09/[address] Juve Reza Essential hypertension Essential hypertension 06/13/2018 -On lisinopril 10mg daily ( home med) -Will d/c for now given hyperkalemia . 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[facility]) 06/13/2018 --ppx ACV and cipro Inflammatory polyarthropathy ([facility]) Leg DVT (deep venous thromboembolism), acute, left ([facility]) 01/02/2018 --acute DVT gastrocnemius found 12/13/2017 --continue apixaban till platelets <50K, last dose 06/21/2018 Low serum vitamin B12 04/22/2021 Lumbar spinal stenosis Mixed hyperlipidemia 10/31/2006 --will hold atorvastatin d/t interactions with chemotherapy can resume at discharge Multiple myeloma ([facility]) 11/28/2017 Multiple myeloma in remission ([facility]) Obesity 10/01/2012 Osteoarthritis of both hands Osteoarthrosis, unspecified whether generalized or localized, other specified sites Pancytopenia due to chemotherapy ([facility]) 06/25/2018 --Transfuse PRBC and platelets per protocol --GCSF Peripheral autonomic neuropathy in disorders classified elsewhere 06/07/2005 Pulmonary hypertension, unspecified ([facility]) 10/23/2019 Reflux esophagitis Spinal stenosis, lumbar region, without neurogenic claudication 11/13/2006 Tobacco abuse 12/27/2011 Quit 2012 Type 2 diabetes mellitus without complication, without long-term current use of insulin (HCC) 04/12/2018 Venous (peripheral) insufficiency Venous insufficiency, peripheral 01/06/2014 Vitamin D deficiency 12/31/2014 PAST SURGICAL HISTORY PAST SURGICAL HISTORY Procedure Laterality Date ANES ARTHROSCOPIC TOTAL SHOULDER REPLACEMENT Right 01/28/2013 [facility] - complete right shoulder replaceement ARTHRD ANT INTERBODY MIN DSC LUMBAR 2009 ARTHROTOMY W/MENISCUS REPAIR KNEE 1981 RIGHT ARTHROTOMY W/MENISCUS REPAIR KNEE 1982 LEFT ARTHRP KNE CONDYLE&PLATU MEDIAL&LAT COMPARTMENTS Right 2008 Knee replacement, total COLONOSCOPY FLX DX W/COLLJ [...] of either since cessation. No ETS in [facility]. Vaping Use Vaping Use: Never used Substance Use Topics Alcohol use: Yes Comment: rare Drug use: No Ronnie works out regularly 7 times per week with walking and light weights. He watches his diet for sodium, low fat and low cholesterol all of the time. List of current specialists seen: Dr. Alvraez, (Hematology) Dr. Hayde Ward, (Pulm) End of [...] bronchitis with chronic obstructive pulmonary disease (COPD) ([facility]) 12/30/2014 Acute on chronic systolic CHF (congestive heart failure) ([facility]) 10/04/2019 Allergic rhinitis 03/15/2021 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 Day: +12; Engrafted Protocol(s): 3422 1C Preparative regimen: melphalan Mobilization regimen: neupogen and plerixafor Stem cell source: apheresis CD34 cell dose (x10e6/kg): 5.14 Date of transplant: 06/15/2018 Cancer of the skin, 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 Cervical spondylosis without myelopathy COPD (chronic obstructive pulmonary disease) ([facility]) 03/15/2021 Diabetic eye exam ([facility]) 09/09/2021 Last done 09/09/21 No diabetic retinopathy [...] Hyperlipidemia Hypomagnesemia 04/22/2021 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[facility]) 06/13/2018 --ppx ACV and cipro Inflammatory polyarthropathy ([facility]) Leg DVT (deep venous thromboembolism), acute, left ([facility]) 01/02/2018 --acute DVT gastrocnemius found 12/13/2017 --continue apixaban till platelets <50K, last dose 06/21/2018 Low serum vitamin B12 04/22/2021 Lumbar spinal stenosis Medicare annual wellness visit, subsequent 10/06/2021 Medicare part B: Not able to find, Last done: 10/06/2021 Mixed hyperlipidemia 10/31/2006 --will hold atorvastatin d/t interactions with chemotherapy can resume at discharge Multiple myeloma ([facility]) 11/28/2017 Multiple myeloma in remission ([facility]) Obesity 10/01/2012 Osteoarthritis of both hands Pancytopenia due to chemotherapy ([facility]) 06/25/2018 --Transfuse PRBC and platelets per protocol --GCSF Peripheral autonomic neuropathy in disorders classified elsewhere 06/07/2005 Pulmonary hypertension, unspecified ([facility]) 10/23/2019 Reflux esophagitis Spinal stenosis, lumbar region, without neurogenic claudication 11/13/2006 Tobacco abuse 12/27/2011 Quit 2012 Type 2 diabetes mellitus without complication, without long-term current use of insulin ([facility]) 04/12/2018 Venous insufficiency, peripheral 01/06/2014 Vitamin D deficiency 12/31/2014 Previous Surgical History PAST SURGICAL HISTORY Procedure Laterality Date ANES ARTHROSCOPIC TOTAL SHOULDER REPLACEMENT Right 01/28/2013 [facility] - complete right shoulder replaceement ARTHRD ANT [...] tablet by mouth twice daily with meals. chyqnegajew-urrxsvndk-wdyqutbs (TRELEGY ELLIPTA) 100-62.5-25 mcg inhalation powder Inhale [...] - 4.00 k/uL 0.70 (L) 0.61 (L) [place]% % 8.5 8.4 Abs [place] <0.87 k/uL 0.39 0.39 Eosin% % 1.1 [...] Negative Negative Ketones, Urine Negative Negative Specific [place], Ur 1.005 - 1.030 1.028 Hemoglobin/Blood,Ur Negative [...] Chronic obstructive pulmonary disease, unspecified COPD type ([facility]) - ICD9: 496, ICD10: J44.9 - management per Pulm 7. Pulmonary hypertension, unspecified ([facility]) - ICD9: 416.8, ICD10: I27.20 - as per #6 8. Peripheral autonomic neuropathy in disorders classified elsewhere - ICD9: 337.1, ICD10: G99.0 - clinically stable. 9. Multiple myeloma in remission ([facility]) - ICD9: 203.01, ICD10: C90.01 - management per Heme/Onc 10. Multiple myeloma, remission status unspecified ([facility]) - ICD9: 203.00, ICD10: C90.00 - as per #9 11. Pancytopenia due to chemotherapy ([facility]) - ICD9: 284.11, ICD10: D61.810 - as per #9 - CBC + DIFF 12. 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[facility]) - ICD9: V42.82, ICD10: Z94.84 - as [...] which included preparing to see the patient, nkbw-ok-ibhb patient care, completing clinical documentation, performing a medically appropriate examination, counseling and educating the patient/family/caregiver and ordering medications, tests, or procedures. 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 I am sorry I missed your call. I will reach out to you again next month. (if the third call I will reach out to you again next week) Enter next patient outreach date for the following using the Track Pt Outreach. End outreach. documented in this encounterFort Hamilton Hospital12-19-2022 Miscellaneous Notes* Telephone Encounter - Ramu Alanis MA - 09/05/2022 11:06 AM EST Prescription order with another phone encounter. Ramu Alanis MA documented in this encounterFort Hamilton Hospital12-19-2022 Miscellaneous Notes* Telephone Encounter - Ramu [...] 09/2022 Last refill: 02/2022 documented in this encounterFort Hamilton Hospital12-19-2022 Miscellaneous Notes* Telephone Encounter - Sangita Martinez LPN - 09/05/2022 10:56 AM EST Valid RX at pharmacy Sangita Martinez LPN documented in this encounterFort Hamilton Hospital12-13-2022 Miscellaneous Notes* Telephone Encounter - Sangita Martinez LPN - 08/30/2022 12:58 PM EST Order is for low dose CT Chest. Yaquelin notified, order already in place. Sangita Martinez LPN * Telephone Encounter - Maria Alejandra Montenegro RN - 08/30/2022 12:33 PM EST Yaquelin from [facility] scheduling called. Ronnie is at [facility] stating that he needs a chest x-ray, but does not have an order. I looked through the imaging tab in [place] and I do not see an order. Attempted to call pulmonary nurse, no answer. Went to the unit and she was not there. Please contact either Yaquelin or Christy at [phone]. Maria Alejandra Montenegro RN documented in this encounterFort Hamilton Hospital12-12-2022 Miscellaneous Notes* Telephone Encounter - Ovidio Vincent [...] 09/30/22 Slime Hernandez LPN documented in this encounterFort Hamilton Hospital12-12-2022 Miscellaneous Notes* Telephone Encounter - Slime Hernandez LPN - 08/29/2022 11:47 AM EST This is being addressed in additional refill encounter. Slime Hernandez LPN documented in this encounterFort Hamilton Hospital12-12-2022 Miscellaneous Notes* Telephone Encounter - Sangita Martinez LPN - 08/29/2022 10:00 AM EST Trelegy refills available at pharmacy. Sangita Martinez LPN documented in this encounterFort Hamilton Hospital12-07-2022 History of Present illness Narrative* Nargis Ortega [...] like to speak with a social work horses or mules teamster to help give you support for any [...] you up for automated weekly questionnaires through [employer]. This is an easy way for us [...] PtOutreach and End outreach. 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 I am sorry I missed your call. I will reach out to you again tomorrow. (if the third call I will reach out to you again next week) Enter next patient outreach datefor the following business day using the Track Pt Outreach. End outreach. documented in this encounterFort Hamilton Hospital11-21-2022 Instructions* Patient Instructions* Hayde Ward MD - 08/08/2022 10:03 AM EST Astepro nasal spray documented in this encounterFort Hamilton Hospital11-21-2022 History of Present illness Narrative* Hayde Ward MD - 08/08/2022 9:30 AM EST Images from the original note were not included. . [facility] Note Patient name: Ronnie Yarbrough PCP: Ovidio [...] DATE OF EXAM: Oct 22 2019 7:08PM [facility] [place] CHEST WO IVCON / [...] bronchitis with chronic obstructive pulmonary disease (COPD) ([facility]) 12/30/2014 Acute on chronic systolic CHF (congestive heart failure) ([facility]) 10/04/2019 Allergic rhinitis 03/15/2021 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 Day: +12; Engrafted Protocol(s): 3422 1C Preparative regimen: melphalan Mobilization regimen: neupogen and plerixafor Stem cell source: apheresis CD34 cell dose (x10e6/kg): 5.14 Date of transplant: 06/15/2018 Cancer of the skin, 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 Cervical spondylosis without myelopathy COPD (chronic obstructive pulmonary disease) ([facility]) 03/15/2021 Diabetic eye exam ([facility]) 09/09/2021 Last done 09/09/21 No diabetic retinopathy [...] Hyperlipidemia Hypomagnesemia 04/22/2021 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[facility]) 06/13/2018 --ppx ACV and cipro Inflammatory polyarthropathy ([facility]) Leg DVT (deep venous thromboembolism), acute, left ([facility]) 01/02/2018 --acute DVT gastrocnemius found 12/13/2017 --continue apixaban till platelets <50K, last dose 06/21/2018 Low serum vitamin B12 04/22/2021 Lumbar spinal stenosis Medicare annual wellness visit, subsequent 10/06/2021 Medicare part B: Not able to find, Last done: 10/06/2021 Mixed hyperlipidemia 10/31/2006 --will hold atorvastatin d/t interactions with chemotherapy can resume at discharge Multiple myeloma ([facility]) 11/28/2017 Multiple myeloma in remission ([facility]) Obesity 10/01/2012 Osteoarthritis of both hands Pancytopenia due to chemotherapy ([facility]) 06/25/2018 --Transfuse PRBC and platelets per protocol --GCSF Peripheral autonomic neuropathy in disorders classified elsewhere 06/07/2005 Pulmonary hypertension, unspecified ([facility]) 10/23/2019 Reflux esophagitis Spinal stenosis, lumbar region, without neurogenic claudication 11/13/2006 Tobacco abuse 12/27/2011 Quit 2013 Type 2 diabetes mellitus without complication, without long-term current use of insulin ([facility]) 04/12/2018 Venous insufficiency, peripheral 01/06/2014 Vitamin D [...] 1 capsule by mouth once daily.^Disp: ^Rfl: yxqxplpvnly-cqicosskj-wzctrkwp (TRELEGY ELLIPTA) 100-62.5-25 mcg inhalation powder^Inhale 1 [...] ANES ARTHROSCOPIC TOTAL SHOULDER REPLACEMENT Right 01/28/2013 [facility] - complete right shoulder replaceement ARTHRD ANT [...] LDCT chest for lung cancer screening. Prefers [facility] 3. Postnasal drip -Instructed to obtain OTC Astepro nasal spray Hayde Ward MD [facility] documented in this encounterFort Hamilton Hospital11-10-2022 Miscellaneous Notes* Telephone Encounter - Ela Alvarez MD - 07/28/2022 11:45 AM EST Patient's request for medication is as follows Requested Prescriptions Signed Prescriptions Disp Refills SLOW-MAG 71.5 mg TbEC 120 tablet 3 Sig: take 2 tablets by mouth twice a day Authorizing Provider: ELA ALVAREZ Order entered - please phone pharmacy and notify patient. Ela Alvarez MD documented in this encounterFort Hamilton Hospital10-17-2022 History of Present illness Narrative* Ovidio Vincent [...] some time. Patient was seeing Rheumatology in [place] and back in March requested a second opinion and was referred to [facility] but an appt was never set up. Has noted some swelling in the wrists and sometimes are warm. No redness. Has been wearing a compression wrist band that does help. Patient used to be on plaquenil and prn prednisone when seeing previous [facility] but only helped slightly. Patient has been [facility] but no longer helping. Patient noting issues with ED. Patient with Hx of diabetes, HTN and ex-smoker. Past medical history, appointments, medications, allergies reviewed. Previous Medical History PAST MEDICAL HISTORY Diagnosis Date Acute bronchitis with chronic obstructive pulmonary disease (COPD) ([facility]) 12/30/2014 Acute on chronic systolic CHF (congestive heart failure) ([facility]) 10/04/2019 Allergic rhinitis 03/15/2021 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 Day: +12; Engrafted Protocol(s): 3422 1C Preparative regimen: melphalan Mobilization regimen: neupogen and plerixafor Stem cell source: apheresis CD34 cell dose (x10e6/kg): 5.14 Date of transplant: 06/15/2018 Cancer of the skin, 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[facility]) 06/13/2018 --ppx ACV and cipro Inflammatory polyarthropathy ([facility]) Leg DVT (deep venous thromboembolism), acute, left ([facility]) 01/02/2018 --acute DVT gastrocnemius found 12/13/2017 --continue apixaban till platelets <50K, last dose 06/21/2018 Low serum vitamin B12 04/22/2021 Lumbar spinal stenosis Medicare annual wellness visit, subsequent 10/06/2021 Medicare part B: Not able to find, Last done: 10/06/2021 Mixed hyperlipidemia 10/31/2006 --will hold atorvastatin d/t interactions with chemotherapy can resume at discharge Multiple myeloma ([facility]) 11/28/2017 Multiple myeloma in remission ([facility]) Obesity 10/01/2012 Osteoarthritis of both hands Pancytopenia due to chemotherapy ([facility]) 06/25/2018 --Transfuse PRBC and platelets per protocol --GCSF Peripheral autonomic neuropathy in disorders classified elsewhere 06/07/2005 Pulmonary hypertension, unspecified ([facility]) 10/23/2019 Reflux esophagitis Spinal stenosis, lumbar region, without neurogenic claudication 11/13/2006 Tobacco abuse 12/27/2011 Quit 2013 Type 2 diabetes mellitus without complication, without long-term current use of insulin ([facility]) 04/12/2018 Venous (peripheral) insufficiency Venous insufficiency, peripheral 01/06/2014 Vitamin D deficiency 12/31/2014 Previous Surgical History PAST SURGICAL HISTORY Procedure Laterality Date ANES ARTHROSCOPIC TOTAL SHOULDER REPLACEMENT Right 01/28/2013 [facility] - complete right shoulder replaceement ARTHRD ANT [...] HX TONSILLECTOMY HX TONSILLECTOMY PRIMARY/SECONDARY AGE 13/> 1986 Tonsillectomy Family [...] which included preparing to see the patient, yvoe-la-lbwn patient care, completing clinical documentation, performing a medically appropriate examination, counseling and educating the patient/family/caregiver and ordering medications, tests, or procedures. Ovidio Vincent MD documented in this encounterFort Hamilton Hospital10-17-2022 Miscellaneous Notes* Telephone Encounter - Ela Alvarez [...] patient. Ela Alvarez MD documented in this encounterFort Hamilton Hospital10-17-2022 Miscellaneous Notes* Telephone Encounter - Ramu Alanis [...] 09/2022 Last refill: 12/2021 documented in this encounterFort Hamilton Hospital10-12-2022 History of Present illness Narrative* Nargis Ortega RN - 06/29/2022 9:32 AM EDT [facility] TELEPHONIC OUTREACH Provider Action/FYI: Contact made with patient: No - Left message Dolores my name is Nargis Ortega RN your Plastics Heat Welder [facility] I am calling today for your monthly check in. I am sorry I missed your call. I will reach out to you again next month. (if the third call I will reach out to you again next week) Enter next patient outreach date for the following business day using the Track Pt Outreach. End outreach. documented in this encounterFort Hamilton Hospital10-11-2022 History of Present illness Narrative* Nargis Ortega RN - 06/28/2022 11:28 AM EDT [facility] TELEPHONIC OUTREACH Provider Action/FYI: Contact made with patient: No - Left message Dolores my name is Nargis Ortega RN your Plastics Heat Welder [facility] the [facility] I am calling today for your monthly check in. I am sorry I missed your call. I will reach out to you again tomorrow. (if the third call I will reach out to you again next week) Enter next patient outreach datefor the following business day using the Track Pt Outreach. End outreach. documented in this encounterFort Hamilton Hospital09-22-2022 Miscellaneous Notes* Telephone Encounter - Madison Hyde LPN - 06/09/2022 3:21 PM EDT Patient phones requesting refills as follows: Requested Prescriptions Pending Prescriptions Disp Refills dapagliflozin (FARXIGA) 5 mg tablet 30 tablet 5 Sig: Take 1 tablet by mouth once daily. Take one daily in the morning MCKENNA-03/22/22 Labs-06/07/22 NOV-09/30/22 med filled 11/03/21 Please review and advise. Madison Hyde LPN documented in this encounterFort Hamilton Hospital09-21-2022 Miscellaneous Notes* Telephone Encounter - Nargis Fox [...] 09/2022 Last refill: 06/2021 documented in this encounterFort Hamilton Hospital09-15-2022 History of Present illness Narrative* Frnaco Zuñiga MD - 06/02/2022 8:01 AM EDT Patient presents with: Right Hand - Established Patient, Post Op: 8 wks postop excision ganglion cyst right 5th finger Franco Zuñiga MD Department of Orthopaedics Orthopaedics [address] [facility] [address] Dept: [phone] Dept June 02, 2022 CHIEF COMPLAINT: Established [...] Gabapentin Franco Zuñiga MD documented in this encounterFort Hamilton Hospital09-13-2022 History of Present illness Narrative* Nargis Ortega, ALICIA - 05/31/2022 10:39 AM EDT [facility] TELEPHONIC OUTREACH Provider Action/FYI: Patient reports he is doing good, getting ready to go on another mission trip to [place]. Patient had no questions, concerns, needs at [...] like to speak with a social work horses or mules teamster to help give you support for any [...] you up for automated weekly questionnaires through [employer]. This is an easy way for us [...] PtOutreach and End outreach. documented in this encounterFort Hamilton Hospital08-24-2022 History of Present illness Narrative* Nargis Ortega RN - 05/11/2022 9:35 AM EDT [facility] TELEPHONIC OUTREACH Provider Action/FYI: Per chart review, patient is out of town, will return May 27. Left detailed message on voicemail advising to return call to this nurse for any questions, concerns, needs. Will follow up when patient is back in [facility]. Contact made with patient: No - Left message Dolores my name is Nargis Ortega RN your Plastics Heat Welder [facility] the [facility] I am calling today for your monthly check in. I am sorry I missed your call. I will reach out to you again next month. (if the third call I will reach out to you again next week) Enter next patient outreach date for the following day using the Track Pt Outreach. End outreach. documented in this encounterFort Hamilton Hospital08-11-2022 History of Present illness Narrative* Franco Zuñiga [...] MD Department of Orthopaedics Orthopaedics [address] [facility] [address] Dept: [phone] Dept April CHIEF COMPLAINT: Follow Up, Post [...] Gabapentin Franco Zuñiga MD documented in this encounterFort Hamilton Hospital08-09-2022 History of Present illness Narrative* Ela Alvarez MD - 04/26/2022 9:34 AM EDT PATIENT NAME: Ronnie Yarbrough. CLINIC NO: [id number]. ATTENDING PHYSICIAN: Ela Alvarez MD. 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 Almost 3 1/2 years since he achieved complete remission 1) multiple myeloma - First [facility] after bone marrow transplant with no M-protein and normal [place] / Lambda ratio. In complete remission for [...] Cc: Dr. Ovidio Vincent documented in this encounterFort Hamilton Hospital08-08-2022 Miscellaneous Notes* Telephone Encounter - Nargis Fox Ma - 04/25/2022 12:45 PM EDT Last office visit: 03/22/22 F/u scheduled: 09/30/22 Nargis Fox Ma documented in this encounterFort Hamilton Hospital08-02-2022 Miscellaneous Notes* Telephone Encounter - Slime Hernandez [...] day. Leslye Winter PA-C documented in this encounterFort Hamilton Hospital08-01-2022 History of Present illness Narrative* Mary Lopez PA-C - 04/18/2022 10:00 AM EDT Mary Lopez PA-C Department of Orthopaedics Orthopaedics [facility] [address] [facility] [address] Dept: [phone] Dept April 18, 2022 CHIEF COMPLAINT: Post [...] Gabapentin This note was partially generated using [employer] voice recognition system, and there may be [...] hand. Denies pain today. documented in this encounterFort Hamilton Hospital08-01-2022 History of Present illness Narrative* RT Kris(R) [...] 18, 2022 8:02 AM documented in this encounterFort Hamilton Hospital07-25-2022 Miscellaneous Notes* Telephone Encounter - Carmen Moyer [...] he need an OT? documented in this encounterFort Hamilton Hospital07-19-2022 Miscellaneous Notes* Telephone Encounter - Ela Alvarez [...] patient. Ela Alvarez MD documented in this encounterFort Hamilton Hospital07-15-2022 Miscellaneous Notes* Telephone Encounter - Mellisa Herrera Ma - 04/01/2022 10:50 AM EDT Surgery has been scheduled as requested. * Telephone Encounter - Carmen Moyer RN - 03/29/2022 4:05 PM EDT Per Delfina, will need to get approval if any code needed beyond [address]3489, but ok to use this code. Surgical [...] ganglion cyst excision. Procedure codes used in [place] not accepted. LM for OR co-ordinator Delfina Chang to call to discuss. documented in this encounterFort Hamilton Hospital07-11-2022 Miscellaneous Notes* Telephone Encounter - Ovidio Vincent [...] Requesting 90 day supply documented in this encounterFort Hamilton Hospital07-11-2022 History of Present illness Narrative* Franco Zuñiga MD - 03/28/2022 10:36 AM EDT Franco Zuñiga MD Department of Orthopaedics Orthopaedics [address] [place] [id number] Dept: [phone] Dept March 28, 2022 Consultation requested by [...] bronchitis with chronic obstructive pulmonary disease (COPD) ([facility]) 12/30/2014 Acute on chronic systolic CHF (congestive heart failure) ([facility]) 10/04/2019 Allergic rhinitis 03/15/2021 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 Day: +12; Engrafted Protocol(s): 3422 1C Preparative regimen: melphalan Mobilization regimen: neupogen and plerixafor Stem cell source: apheresis CD34 cell dose (x10e6/kg): 5.14 Date of transplant: 06/15/2018 Cancer of the skin, 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[facility]) 06/13/2018 --ppx ACV and cipro Inflammatory polyarthropathy (HCC) Leg DVT (deep venous thromboembolism), acute, left ([facility]) 01/02/2018 --acute DVT gastrocnemius found 12/13/2017 --continue apixaban till platelets <50K, last dose 06/21/2018 Low serum vitamin B12 04/22/2021 Lumbar spinal stenosis Medicare annual wellness visit, subsequent 10/06/2021 Medicare part B: Not able to find, Last done: 10/06/2021 Mixed hyperlipidemia 10/31/2006 --will hold atorvastatin d/t interactions with chemotherapy can resume at discharge Multiple myeloma ([facility]) 11/28/2017 Multiple myeloma in remission ([facility]) Obesity 10/01/2012 Osteoarthritis of both hands Pancytopenia due to chemotherapy ([facility]) 06/25/2018 --Transfuse PRBC and platelets per protocol --GCSF Peripheral autonomic neuropathy in disorders classified elsewhere 06/07/2005 Pulmonary hypertension, unspecified ([facility]) 10/23/2019 Reflux esophagitis Spinal stenosis, lumbar region, without neurogenic claudication 11/13/2006 Tobacco abuse 12/27/2011 Quit 2013 Type 2 diabetes mellitus without complication, without long-term current use of insulin ([facility]) 04/12/2018 Venous (peripheral) insufficiency Venous insufficiency, peripheral 01/06/2014 Vitamin D deficiency 12/31/2014 Past Surgical History: PAST SURGICAL HISTORY Procedure Laterality Date ANES ARTHROSCOPIC TOTAL SHOULDER REPLACEMENT Right 01/28/2013 [facility] - complete right shoulder replaceement ARTHRD ANT INTERBODY MIN DSC LUMBAR 2009 ARTHROTOMY W/MENISCUS REPAIR KNEE 1981 RIGHT ARTHROTOMY W/MENISCUS REPAIR KNEE 1982 LEFT ARTHRP KNE CONDYLE&PLATU MEDIAL&LAT COMPARTMENTS Right 2008 Knee replacement, total COLONOSCOPY FLX DX W/COLLJ [...] TONSILLECTOMY PRIMARY/SECONDARY AGE 13/> 1986 Tonsillectomy Family History: FAMILY HISTORY Problem Relation [...] PHYSICIAN: Mr. Ronnie Yarbrough was referred to [place] for consultation by the following physician. This consultation note will be sent to the following physician by either mail or electronic medical record. 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 Day: +12; Engrafted Protocol(s): 3422 1C Preparative regimen: melphalan Mobilization regimen: neupogen and plerixafor Stem cell source: apheresis CD34 cell dose (x10e6/kg): 5.14 Date of transplant: 06/15/2018 Cancer of the skin, 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[facility]) 06/13/2018 --ppx ACV and cipro Inflammatory polyarthropathy ([facility]) Leg DVT (deep venous thromboembolism), acute, left ([facility]) 01/02/2018 --acute DVT gastrocnemius found 12/13/2017 --continue apixaban till platelets <50K, last dose 06/21/2018 Low serum vitamin B12 04/22/2021 Lumbar spinal stenosis Medicare annual wellness visit, subsequent 10/06/2021 Medicare part B: Not able to find, Last done: 10/06/2021 Mixed hyperlipidemia 10/31/2006 --will hold atorvastatin d/t interactions with chemotherapy can resume at discharge Multiple myeloma ([facility]) 11/28/2017 Multiple myeloma in remission ([facility]) Obesity 10/01/2012 Osteoarthritis of both hands Pancytopenia due to chemotherapy ([facility]) 06/25/2018 --Transfuse PRBC and platelets per protocol --GCSF Peripheral autonomic neuropathy in disorders classified elsewhere 06/07/2005 Pulmonary hypertension, unspecified ([facility]) 10/23/2019 Reflux esophagitis Spinal stenosis, lumbar region, without neurogenic claudication 11/13/2006 Tobacco abuse 12/27/2011 Quit 2013 Type 2 diabetes mellitus without complication, without long-term current use of insulin ([facility]) 04/12/2018 Venous (peripheral) insufficiency Venous insufficiency, peripheral 01/06/2014 Vitamin D deficiency 12/31/2014 Previous Surgical History PAST SURGICAL HISTORY Procedure Laterality Date ANES ARTHROSCOPIC TOTAL SHOULDER REPLACEMENT Right 01/28/2013 [facility] - complete right shoulder replaceement ARTHRD ANT INTERBODY MIN DSC LUMBAR 2009 ARTHROTOMY W/MENISCUS REPAIR KNEE 1981 RIGHT ARTHROTOMY W/MENISCUS REPAIR KNEE 1982 LEFT ARTHRP KNE CONDYLE&PLATU MEDIAL&LAT COMPARTMENTS Right 2008 Knee replacement, total COLONOSCOPY FLX DX W/COLLJ [...] nerve decompression TONSILLECTOMY PRIMARY/SECONDARY AGE 12/1985 Tonsillectomy Family History FAMILY HISTORY Problem Relation [...] ORTHOPAEDICS Leslye Winter PA-C documented in this encounterFort Hamilton Hospital06-30-2022 Miscellaneous Notes* Telephone Encounter - Ela Alvarez [...] patient. Yesenia Quiles LPN documented in this encounterFort Hamilton Hospital06-30-2022 Miscellaneous Notes* Telephone Encounter - Shey Liu [...] you. Shey Liu LPN documented in this encounterFort Hamilton Hospital06-29-2022 History of Present illness Narrative* Nargis Ortega [...] like to speak with a social work horses or mules teamster to help give you support for any [...] you up for automated weekly questionnaires through [employer]. This is an easy way for us [...] PtOutreach and End outreach. documented in this encounterFort Hamilton Hospital05-20-2022 Miscellaneous Notes* Telephone Encounter - Marina Tilley [...] and advise. Shey Amador documented in this encounterFort Hamilton Hospital05-12-2022 Miscellaneous Notes* Telephone Encounter - Loretta Leon PA-C - 01/27/2022 9:35 AM EDT Spoke to patient and advised him to start Probiotic. He states diarrhea is improving with stopping Augmentin. Will switch to Azithromycin. If patient, experiences increase in diarrhea advised to stop immediately. Loretta Leon PA-C documented in this encounterFort Hamilton Hospital05-09-2022 History of Present illness Narrative* Nargis Ortega [...] like to speak with a social work horses or mules teamster to help give you support for any [...] you up for automated weekly questionnaires through [employer]. This is an easy way for us [...] RN - 01/24/2022 9:11 AM EDT [facility] TELEPHONIC OUTREACH Provider Action/FYI: Contact made with patient: No - Left message Hello my name is Nargis Ortega RN your [employer]astics Heat [employer]der [facility] the [facility] I am calling today for your bi-weekly check in. I am sorry I missed your call. I will reach out to you again tomorrow. (if the third call I will reach out to you again next week) Enter next patient outreach date for the following business day using the Track Pt Outreach. End outreach. documented in this encounterFort Hamilton Hospital05-05-2022 History of Present illness Narrative* Loretta Leon PA-C - 01/20/2022 9:04 AM EDT [facility], 01/20/2022: Name: Ronnie Yarbrough : 1950 The [...] having a cold in November. Was in [place] for a mission trip and woke up [...] answers. Loretta Leon PA-C documented in this encounterFort Hamilton Hospital04-21-2022 Miscellaneous Notes* Telephone Encounter - Ovidio Vincent [...] advise. Madison Hyde LPN documented in this encounterFort Hamilton Hospital04-11-2022 History of Present illness Narrative* Nargis Ortega [...] like to speak with a social work horses or mules teamster to help give you support for any [...] you up for automated weekly questionnaires through [employer]. This is an easy way for us [...] PtOutreach and End outreach. documented in this encounterFort Hamilton Hospital02-05-2020 History of Past illness Narrative* Problem Noted [...] dose of 40mg daily. Annie Corrales RN TONGUE LINING STITCHER.BACK TENDER PAPER MACHINE Acute on chronic systolic CHF (congestive [...] of this encounter (statuses as of 12/27/2021) [facility] History of Past illness Narrative* Problem Noted [...] dose of 40mg daily. Annie Corrales RN TONGUE LINING STITCHER.BACK TENDER PAPER MACHINE Acute on chronic systolic CHF (congestive [...] of this encounter (statuses as of 01/06/2022) [facility] History of Past illness Narrative* Problem Noted [...] dose of 40mg daily. Annie Corrales, RN TONGUE LINING STITCHER.BACK TENDER PAPER MACHINE Acute on chronic systolic CHF (congestive [...] of this encounter (statuses as of 01/20/2022) [facility] of Past illness Narrative* Problem Noted [...] dose of 40mg daily. Annie Corrales RN TONGUE LINING STITCHER.BACK TENDER PAPER MACHINE Acute on chronic systolic CHF (congestive [...] of this encounter (statuses as of 01/24/2022) [facility] of Past illness Narrative* Problem Noted [...] dose of 40mg daily. Annie Corrales RN TONGUE LINING STITCHER.BACK TENDER PAPER MACHINE Acute on chronic systolic CHF (congestive [...] of this encounter (statuses as of 01/27/2022) [facility] of [facility] Narrative* Problem Noted [...] dose of 40mg daily. Annie Corrales, RN TONGUE LINING STITCHER.BACK TENDER PAPER MACHINE Acute on chronic systolic CHF (congestive [...] of this encounter (statuses as of 02/04/2022) [facility] of [facility] Narrative* Problem Noted [...] dose of 40mg daily. Annie Corrales, RN TONGUE LINING STITCHER.BACK TENDER PAPER MACHINE Acute on chronic systolic CHF (congestive [...] of this encounter (statuses as of 02/10/2022) [facility] of [facility] Narrative* Problem Noted [...] dose of 40mg daily. Annie Corrales RN TONGUE LINING STITCHER.BACK TENDER PAPER MACHINE Acute on chronic systolic CHF (congestive [...] of this encounter (statuses as of 03/16/2022) [facility] of [facility] Narrative* Problem Noted [...] dose of 40mg daily. Annie Corrales RN TONGUE LINING STITCHER.BACK TENDER PAPER MACHINE Acute on chronic systolic CHF (congestive [...] of this encounter (statuses as of 03/17/2022) [facility] of [facility] Narrative* Problem Noted [...] dose of 40mg daily. Annie Corrales RN TONGUE LINING STITCHER.BACK TENDER PAPER MACHINE Acute on chronic systolic CHF (congestive [...] of this encounter (statuses as of 03/17/2022) [facility] of [facility] Narrative* Problem Noted [...] dose of 40mg daily. Annie Corrales RN TONGUE LINING STITCHER.BACK TENDER PAPER MACHINE Acute on chronic systolic CHF (congestive [...] of this encounter (statuses as of 03/22/2022) [facility] of [facility] Narrative* Problem Noted [...] dose of 40mg daily. Annie Corrales RN TONGUE LINING STITCHER.BACK TENDER PAPER MACHINE Acute on chronic systolic CHF (congestive [...] of this encounter (statuses as of 03/28/2022) [facility] Narrative* Problem Noted [...] dose of 40mg daily. Annie Corrales RN TONGUE LINING STITCHER.BACK TENDER PAPER MACHINE Acute on chronic systolic CHF (congestive [...] of this encounter (statuses as of 04/01/2022) [facility] Narrative* Problem Noted [...] dose of 40mg daily. Annie Corrales RN TONGUE LINING STITCHER.BACK TENDER PAPER MACHINE Acute on chronic systolic CHF (congestive [...] of this encounter (statuses as of 04/05/2022) [facility] Narrative* Problem Noted [...] dose of 40mg daily. Annie Corrales RN TONGUE LINING STITCHER.BACK TENDER PAPER MACHINE Acute on chronic systolic CHF (congestive [...] of this encounter (statuses as of 04/07/2022) [facility] Narrative* Problem Noted [...] dose of 40mg daily. Annie Corrales RN TONGUE LINING STITCHER.BACK TENDER PAPER MACHINE Acute on chronic systolic CHF (congestive [...] of this encounter (statuses as of 04/11/2022) [facility] Narrative* Problem Noted [...] dose of 40mg daily. Annie Corrales RN TONGUE LINING STITCHER.BACK TENDER PAPER MACHINE Acute on chronic systolic CHF (congestive [...] of this encounter (statuses as of 04/18/2022) [facility] Narrative* Problem Noted [...] dose of 40mg daily. Annie Corrales, RN TONGUE LINING STITCHER.BACK TENDER PAPER MACHINE Acute on chronic systolic CHF (congestive [...] of this encounter (statuses as of 04/19/2022) [facility] Narrative* Problem Noted [...] dose of 40mg daily. Annie Corrales, RN TONGUE LINING STITCHER.BACK TENDER PAPER MACHINE Acute on chronic systolic CHF (congestive [...] of this encounter (statuses as of 04/19/2022) [facility] Narrative* Problem Noted [...] of 40mg daily. Annie I Corrales, RN TONGUE LINING STITCHER.BACK TENDER PAPER MACHINE Acute on chronic systolic CHF (congestive [...] of this encounter (statuses as of 04/25/2022) [facility] Narrative* Problem Noted [...] dose of 40mg daily. Annie Corrales RN TONGUE LINING STITCHER.BACK TENDER PAPER MACHINE Acute on chronic systolic CHF (congestive [...] of this encounter (statuses as of 04/26/2022) [facility] Narrative* Problem Noted [...] dose of 40mg daily. Annie Corrales, RN TONGUE LINING STITCHER.BACK TENDER PAPER MACHINE Acute on chronic systolic CHF (congestive [...] of this encounter (statuses as of 04/27/2022) [facility] Narrative* Problem Noted [...] dose of 40mg daily. Annie Corrales, RN TONGUE LINING STITCHER.BACK TENDER PAPER MACHINE Acute on chronic systolic CHF (congestive [...] of this encounter (statuses as of 05/02/2022) [facility] Narrative* Problem Noted [...] dose of 40mg daily. Annie Corrales, RN TONGUE LINING STITCHER.BACK TENDER PAPER MACHINE Acute on chronic systolic CHF (congestive [...] of this encounter (statuses as of 05/11/2022) [facility] Narrative* Problem Noted [...] dose of 40mg daily. Annie Corrales RN TONGUE LINING STITCHER.BACK TENDER PAPER MACHINE Acute on chronic systolic CHF (congestive [...] of this encounter (statuses as of 05/25/2022) [facility] Narrative* Problem Noted [...] dose of 40mg daily. Annie Corrales RN TONGUE LINING STITCHER.BACK TENDER PAPER MACHINE Acute on chronic systolic CHF (congestive [...] of this encounter (statuses as of 05/31/2022) [facility] Narrative* Problem Noted [...] dose of 40mg daily. Annie Corrales RN TONGUE LINING STITCHER.BACK TENDER PAPER MACHINE Acute on chronic systolic CHF (congestive [...] of this encounter (statuses as of 06/02/2022) [facility] Narrative* Problem Noted [...] dose of 40mg daily. Annie Corrales, RN TONGUE LINING STITCHER.BACK TENDER PAPER MACHINE Acute on chronic systolic CHF (congestive [...] of this encounter (statuses as of 06/08/2022) [facility] Narrative* Problem Noted [...] dose of 40mg daily. Annie Corrales RN TONGUE LINING STITCHER.BACK TENDER PAPER MACHINE Acute on chronic systolic CHF (congestive [...] of this encounter (statuses as of 06/10/2022) [facility] Narrative* Problem Noted [...] dose of 40mg daily. Annie Corrales RN TONGUE LINING STITCHER.BACK TENDER PAPER MACHINE Acute on chronic systolic CHF (congestive [...] of this encounter (statuses as of 06/20/2022) [facility] Narrative* Problem Noted [...] dose of 40mg daily. Annie Corrales, RN TONGUE LINING STITCHER.BACK TENDER PAPER MACHINE Acute on chronic systolic CHF (congestive [...] of this encounter (statuses as of 06/28/2022) [facility] Narrative* Problem Noted [...] dose of 40mg daily. Annie Corrales, RN TONGUE LINING STITCHER.BACK TENDER PAPER MACHINE Acute on chronic systolic CHF (congestive [...] of this encounter (statuses as of 06/29/2022) [facility] Narrative* Problem Noted [...] dose of 40mg daily. Annie Corrales RN TONGUE LINING STITCHER.BACK TENDER PAPER MACHINE Acute on chronic systolic CHF (congestive [...] of this encounter (statuses as of 07/04/2022) [facility] Narrative* Problem Noted [...] dose of 40mg daily. Annie Corrales RN TONGUE LINING STITCHER.BACK TENDER PAPER MACHINE Acute on chronic systolic CHF (congestive [...] of this encounter (statuses as of 07/04/2022) [facility] Narrative* Problem Noted [...] dose of 40mg daily. Annie Corrales RN TONGUE LINING STITCHER.BACK TENDER PAPER MACHINE Acute on chronic systolic CHF (congestive [...] of this encounter (statuses as of 07/04/2022) [facility] Narrative* Problem Noted [...] dose of 40mg daily. Annie Corrales RN TONGUE LINING STITCHER.BACK TENDER PAPER MACHINE Acute on chronic systolic CHF (congestive [...] of this encounter (statuses as of 07/28/2022) [facility] Narrative* Problem Noted [...] dose of 40mg daily. Annie Corrales RN TONGUE LINING STITCHER.BACK TENDER PAPER MACHINE Acute on chronic systolic CHF (congestive [...] of this encounter (statuses as of 08/08/2022) [facility] Narrative* Problem Noted [...] dose of 40mg daily. Annie Corrales RN TONGUE LINING STITCHER.BACK TENDER PAPER MACHINE Acute on chronic systolic CHF (congestive [...] of this encounter (statuses as of 08/23/2022) [facility] Narrative* Problem Noted [...] resume home dose of 40mg daily. Annie Crorales RN TONGUE LINING STITCHER.BACK TENDER PAPER MACHINE Acute on chronic systolic CHF (congestive [...] of this encounter (statuses as of 08/24/2022) [facility] Narrative* Problem Noted [...] dose of 40mg daily. Annie Corrales RN TONGUE LINING STITCHER.BACK TENDER PAPER MACHINE Acute on chronic systolic CHF (congestive [...] of this encounter (statuses as of 08/29/2022) [facility] Narrative* Problem Noted [...] dose of 40mg daily. Annie Corrales RN TONGUE LINING STITCHER.BACK TENDER PAPER MACHINE Acute on chronic systolic CHF (congestive [...] of this encounter (statuses as of 08/29/2022) [facility] Narrative* Problem Noted [...] dose of 40mg daily. Annie Corrales RN TONGUE LINING STITCHER.BACK TENDER PAPER MACHINE Acute on chronic systolic CHF (congestive [...] of this encounter (statuses as of 08/30/2022) [facility] Narrative* Problem Noted [...] dose of 40mg daily. Annie Corrales, RN TONGUE LINING STITCHER.BACK TENDER PAPER MACHINE Acute on chronic systolic CHF (congestive [...] of this encounter (statuses as of 09/05/2022) [facility] Narrative* Problem Noted [...] dose of 40mg daily. Annie Corrales, RN TONGUE LINING STITCHER.BACK TENDER PAPER MACHINE Acute on chronic systolic CHF (congestive [...] of this encounter (statuses as of 09/05/2022) [facility] Narrative* Problem Noted [...] of 40mg daily. Annie I Corrales, RN TONGUE LINING STITCHER.BACK TENDER PAPER MACHINE Acute on chronic systolic CHF (congestive [...] of this encounter (statuses as of 09/05/2022) [facility] Narrative* Problem Noted [...] dose of 40mg daily. Annie Corrales RN TONGUE LINING STITCHER.BACK TENDER PAPER MACHINE Acute on chronic systolic CHF (congestive [...] of this encounter (statuses as of 09/18/2022) [facility] Narrative* Problem Noted [...] dose of 40mg daily. Annie Corrales, RN TONGUE LINING STITCHER.BACK TENDER PAPER MACHINE Acute on chronic systolic CHF (congestive [...] of this encounter (statuses as of 09/22/2022) [facility] Narrative* Problem Noted [...] dose of 40mg daily. Annie Corrales, RN TONGUE LINING STITCHER.BACK TENDER PAPER MACHINE Acute on chronic systolic CHF (congestive [...] of this encounter (statuses as of 09/23/2022) [facility] Narrative* Problem Noted [...] dose of 40mg daily. Annie Corrales, RN TONGUE LINING STITCHER.BACK TENDER PAPER MACHINE Acute on chronic systolic CHF (congestive [...] of this encounter (statuses as of 09/30/2022) [facility] Narrative* Problem Noted [...] dose of 40mg daily. Annie Corrales RN TONGUE LINING STITCHER.BACK TENDER PAPER MACHINE Acute on chronic systolic CHF (congestive [...] of this encounter (statuses as of 09/30/2022) [facility] History of Past illness Narrative* Problem Noted [...] dose of 40mg daily. Annie Corrales RN TONGUE LINING STITCHER.BACK TENDER PAPER MACHINE Acute on chronic systolic CHF (congestive [...] of this encounter (statuses as of 10/01/2022) [facility] History of Past illness Narrative* Problem Noted [...] dose of 40mg daily. Annie Corrales RN TONGUE LINING STITCHER.BACK TENDER PAPER MACHINE Acute on chronic systolic CHF (congestive [...] of this encounter (statuses as of 10/06/2022) [facility] History of Past illness Narrative* Problem Noted [...] dose of 40mg daily. Annie Corrales, RN TONGUE LINING STITCHER.BACK TENDER PAPER MACHINE Acute on chronic systolic CHF (congestive [...] of this encounter (statuses as of 10/13/2022) [facility] History of Past illness Narrative* Problem Noted [...] dose of 40mg daily. Annie Corrales RN TONGUE LINING STITCHER.BACK TENDER PAPER MACHINE Acute on chronic systolic CHF (congestive [...] of this encounter (statuses as of 10/13/2022) [facility] History of Past illness Narrative* Problem Noted [...] dose of 40mg daily. Annie Corrales RN TONGUE LINING STITCHER.BACK TENDER PAPER MACHINE Acute on chronic systolic CHF (congestive [...] of this encounter (statuses as of 10/22/2022) [facility] History of Past illness Narrative* Problem Noted [...] dose of 40mg daily. Annie Corrales, RN TONGUE LINING STITCHER.BACK TENDER PAPER MACHINE Acute on chronic systolic CHF (congestive [...] of this encounter (statuses as of 10/24/2022) [facility] History of Past illness Narrative* Problem Noted [...] dose of 40mg daily. Annie Corrales, RN TONGUE LINING STITCHER.BACK TENDER PAPER MACHINE Acute on chronic systolic CHF (congestive [...] of this encounter (statuses as of 10/28/2022) [facility] History of Past illness Narrative* Problem Noted [...] 12.5, on discharge arrange f/u with Dr. Roesnbaum's office for electrolyte monitoring Can stop carvedilol given no indication (ischemia ruled out, and HFrEF ruled out) - Would not continue imdur on discharge given no indication - Lisinopril can be restarted as an outpatient as needed for HTN if renal function is stable Dr. Mcpherson recommends to resume home dose of 40mg daily. Annie Corrales RN TONGUE LINING STITCHER.BACK TENDER PAPER MACHINE Acute on chronic systolic CHF (congestive [...] of this encounter (statuses as of 10/28/2022) [facility] History of Past illness Narrative* Problem Noted [...] dose of 40mg daily. Annie Corrales RN TONGUE LINING STITCHER.BACK TENDER PAPER MACHINE Acute on chronic systolic CHF (congestive [...] of this encounter (statuses as of 11/03/2022) [facility] History of Past illness Narrative* Problem Noted [...] dose of 40mg daily. Annie Corrales RN TONGUE LINING STITCHER.BACK TENDER PAPER MACHINE Acute on chronic systolic CHF (congestive [...] of this encounter (statuses as of 11/08/2022) [facility] History of Past illness Narrative* Problem Noted [...] dose of 40mg daily. Annie Corrales RN TONGUE LINING STITCHER.BACK TENDER PAPER MACHINE Acute on chronic systolic CHF (congestive [...] of this encounter (statuses as of 11/08/2022) [facility] History of Past illness Narrative* Problem Noted [...] dose of 40mg daily. Annie Corrales RN TONGUE LINING STITCHER.BACK TENDER PAPER MACHINE Acute on chronic systolic CHF (congestive [...] of this encounter (statuses as of 11/25/2022) [facility] History of Past illness Narrative* Problem Noted [...] dose of 40mg daily. Annie Corrales RN TONGUE LINING STITCHER.BACK TENDER PAPER MACHINE Acute on chronic systolic CHF (congestive [...] of this encounter (statuses as of 11/30/2022) [facility] History of Past illness Narrative* Problem Noted [...] dose of 40mg daily. Annie Corrales RN TONGUE LINING STITCHER.BACK TENDER PAPER MACHINE Acute on chronic systolic CHF (congestive [...] of this encounter (statuses as of 12/19/2022) [facility] History of Past illness Narrative* Problem Noted [...] to resume home dose of 40mg daily. nAnie Corrales RN TONGUE LINING STITCHER.BACK TENDER PAPER MACHINE Acute on chronic systolic CHF (congestive [...] of this encounter (statuses as of 12/20/2022) [facility] History of Past illness Narrative* Problem Noted [...] dose of 40mg daily. Annie Corrales RN TONGUE LINING STITCHER.BACK TENDER PAPER MACHINE Acute on chronic systolic CHF (congestive [...] of this encounter (statuses as of 12/21/2022) [facility] History of Past illness Narrative* Problem Noted [...] dose of 40mg daily. Annie Corrales RN TONGUE LINING STITCHER.BACK TENDER PAPER MACHINE Acute on chronic systolic CHF (congestive [...] of this encounter (statuses as of 12/24/2022) [facility] History of Past illness Narrative* Problem Noted [...] dose of 40mg daily. Annie Corrales RN TONGUE LINING STITCHER.BACK TENDER PAPER MACHINE Acute on chronic systolic CHF (congestive [...] of this encounter (statuses as of 01/09/2023) [facility] History of Past illness Narrative* Problem Noted [...] dose of 40mg daily. Annie Corrales, RN TONGUE LINING STITCHER.BACK TENDER PAPER MACHINE Acute on chronic systolic CHF (congestive [...] of this encounter (statuses as of 01/13/2023) [facility] History of Past illness Narrative* Problem Noted [...] dose of 40mg daily. Annie Corrales RN TONGUE LINING STITCHER.BACK TENDER PAPER MACHINE Acute on chronic systolic CHF (congestive [...] Overview: --compazine, Ativan and zofran prn. JOSE ENRQIUE (acute kidney injury) 06/16/20182017 Overview: Acute increase [...] of this encounter (statuses as of 01/18/2023) [facility] History of Past illness Narrative* Problem Noted [...] dose of 40mg daily. Annie Corrales RN TONGUE LINING STITCHER.BACK TENDER PAPER MACHINE Acute on chronic systolic CHF (congestive [...] of this encounter (statuses as of 01/25/2023) [facility] History of Past illness Narrative* Problem Noted [...] dose of 40mg daily. Annie Corrales, RN TONGUE LINING STITCHER.BACK TENDER PAPER MACHINE Acute on chronic systolic CHF (congestive [...] of this encounter (statuses as of 02/14/2023) [facility] History of Past illness Narrative* Problem Noted [...] dose of 40mg daily. Annie Corrales, RN TONGUE LINING STITCHER.BACK TENDER PAPER MACHINE Acute on chronic systolic CHF (congestive [...] of this encounter (statuses as of 02/16/2023) [facility] History of Past illness Narrative* Problem Noted [...] dose of 40mg daily. Annie Corrales RN TONGUE LINING STITCHER.BACK TENDER PAPER MACHINE Acute on chronic systolic CHF (congestive [...] of this encounter (statuses as of 02/18/2023) [facility] History of Past illness Narrative* Problem Noted [...] dose of 40mg daily. Annie Corrales, RN TONGUE LINING STITCHER.BACK TENDER PAPER MACHINE Acute on chronic systolic CHF (congestive [...] of this encounter (statuses as of 02/19/2023) [facility] History of Past illness Narrative* Problem Noted [...] dose of 40mg daily. Annie Corrales, RN TONGUE LINING STITCHER.BACK TENDER PAPER MACHINE Acute on chronic systolic CHF (congestive [...] of this encounter (statuses as of 02/23/2023) [facility] History of Past illness Narrative* Problem Noted [...] dose of 40mg daily. Annie Corrales RN TONGUE LINING STITCHER.BACK TENDER PAPER MACHINE Acute on chronic systolic CHF (congestive [...] of this encounter (statuses as of 03/03/2023) [facility] History of Past illness Narrative* Problem Noted [...] dose of 40mg daily. Annie Corrales RN TONGUE LINING STITCHER.BACK TENDER PAPER MACHINE Acute on chronic systolic CHF (congestive [...] of this encounter (statuses as of 03/07/2023) [facility] History of Past illness Narrative* Problem Noted [...] dose of 40mg daily. Annie Corrales RN TONGUE LINING STITCHER.BACK TENDER PAPER MACHINE Acute on chronic systolic CHF (congestive [...] of this encounter (statuses as of 03/13/2023) [facility] History of Past illness Narrative* Problem Noted [...] dose of 40mg daily. Annie Corrales RN TONGUE LINING STITCHER.BACK TENDER PAPER MACHINE Acute on chronic systolic CHF (congestive [...] of this encounter (statuses as of 03/20/2023) [facility] History of Past illness Narrative* Problem Noted [...] dose of 40mg daily. Annie Corrales RN TONGUE LINING STITCHER.BACK TENDER PAPER MACHINE Acute on chronic systolic CHF (congestive [...] of this encounter (statuses as of 03/23/2023) [facility] History of Past illness Narrative* Problem Noted [...] dose of 40mg daily. Annie Corrales RN TONGUE LINING STITCHER.BACK TENDER PAPER MACHINE Acute on chronic systolic CHF (congestive [...] of this encounter (statuses as of 03/23/2023) [facility] History of Past illness Narrative* Problem Noted [...] dose of 40mg daily. Annie Corrales, RN TONGUE LINING STITCHER.BACK TENDER PAPER MACHINE Acute on chronic systolic CHF (congestive [...] of this encounter (statuses as of 03/24/2023) [facility] History of Past illness Narrative* Problem Noted [...] dose of 40mg daily. Annie Corrales, RN TONGUE LINING STITCHER.BACK TENDER PAPER MACHINE Acute on chronic systolic CH F [...] of this encounter (statuses as of 03/30/2023) [facility] History of Past illness Narrative* Problem Noted [...] dose of 40mg daily. Annie Corrales RN TONGUE LINING STITCHER.BACK TENDER PAPER MACHINE Acute on chronic systolic CH F [...] of this encounter (statuses as of 03/31/2023) [facility] History of Past illness Narrative* Problem Noted [...] dose of 40mg daily. Annie Corrales, RN TONGUE LINING STITCHER.BACK TENDER PAPER MACHINE Acute on chronic systolic CH F [...] of this encounter (statuses as of 04/01/2023) [facility] History of Past illness Narrative* Problem Noted [...] resume home dose of 40mg daily. Annie Corrlaes, RN TONGUE LINING STITCHER.BACK TENDER PAPER MACHINE Acute on chronic systolic CH F [...] of this encounter (statuses as of 04/02/2023) [facility] History of Past illness Narrative* Problem Noted [...] dose of 40mg daily. Annie Corrales, RN TONGUE LINING STITCHER.BACK TENDER PAPER MACHINE Acute on chronic systolic CH F [...] of this encounter (statuses as of 04/03/2023) [facility] History of Past illness Narrative* Problem Noted [...] dose of 40mg daily. Annie Corrales RN TONGUE LINING STITCHER.BACK TENDER PAPER MACHINE Acute on chronic systolic CH F [...] of this encounter (statuses as of 04/06/2023) [facility] History of Past illness Narrative* Problem Noted [...] dose of 40mg daily. Annie Corrales RN TONGUE LINING STITCHER.BACK TENDER PAPER MACHINE Acute on chronic systolic CH F [...] of this encounter (statuses as of 04/13/2023) [facility] History of Past illness Narrative* Problem Noted [...] dose of 40mg daily. Annie Corrales, RN TONGUE LINING STITCHER.BACK TENDER PAPER MACHINE Acute on chronic systolic CH F [...] of this encounter (statuses as of 04/19/2023) [facility] History of Past illness Narrative* Problem Noted [...] dose of 40mg daily. Annie Corrales, RN TONGUE LINING STITCHER.BACK TENDER PAPER MACHINE Acute on chronic systolic CH F [...] of this encounter (statuses as of 04/21/2023) [facility] History of Past illness Narrative* Problem Noted [...] dose of 40mg daily. Annie Corrales RN TONGUE LINING STITCHER.BACK TENDER PAPER MACHINE Acute on chronic systolic CH F [...] of this encounter (statuses as of 05/01/2023) [facility] History of Past illness Narrative* Problem Noted [...] dose of 40mg daily. Annie Corrales RN TONGUE LINING STITCHER.BACK TENDER PAPER MACHINE Acute on chronic systolic CH F [...] of this encounter (statuses as of 05/03/2023) [facility] History of Past illness Narrative* Problem Noted [...] dose of 40mg daily. Annie Corrales, RN TONGUE LINING STITCHER.BACK TENDER PAPER MACHINE Acute on chronic systolic CH F [...] of this encounter (statuses as of 05/18/2023) [facility] History of Past illness Narrative* Problem Noted [...] dose of 40mg daily. Annie Corrales, RN TONGUE LINING STITCHER.BACK TENDER PAPER MACHINE Acute on chronic systolic CH F [...] of this encounter (statuses as of 05/19/2023) [facility] History of Past illness Narrative* Problem Noted [...] dose of 40mg daily. Annie Corrales RN TONGUE LINING STITCHER.BACK TENDER PAPER MACHINE Acute on chronic systolic CH F [...] of this encounter (statuses as of 05/22/2023) [facility] History of Past illness Narrative* Problem Noted [...] dose of 40mg daily. Annie Corrales, RN TONGUE LINING STITCHER.BACK TENDER PAPER MACHINE Acute on chronic systolic CH F [...] of this encounter (statuses as of 05/25/2023) [facility] History of Past illness Narrative* Problem Noted [...] dose of 40mg daily. Annie Corrales, RN TONGUE LINING STITCHER.BACK TENDER PAPER MACHINE Acute on chronic systolic CH F [...] of this encounter (statuses as of 05/26/2023) [facility] History of Past illness Narrative* Problem Noted [...] dose of 40mg daily. Annie Corrales RN TONGUE LINING STITCHER.BACK TENDER PAPER MACHINE Acute on chronic systolic CH F [...] of this encounter (statuses as of 05/29/2023) [facility] History of Past illness Narrative* Problem Noted [...] dose of 40mg daily. Annie Corrales RN TONGUE LINING STITCHER.BACK TENDER PAPER MACHINE Acute on chronic systolic CH F [...] of this encounter (statuses as of 05/29/2023) [facility] History of Past illness Narrative* Problem Noted [...] dose of 40mg daily. Annie Corrales RN TONGUE LINING STITCHER.BACK TENDER PAPER MACHINE Acute on chronic systolic CH F [...] of this encounter (statuses as of 06/04/2023) [facility] History of Past illness Narrative* Problem Noted [...] dose of 40mg daily. Annie Corrales RN TONGUE LINING STITCHER.BACK TENDER PAPER MACHINE Acute on chronic systolic CH F [...] of this encounter (statuses as of 06/06/2023) [facility] History of Past illness Narrative* Problem Noted [...] dose of 40mg daily. Annie Corrales RN TONGUE LINING STITCHER.BACK TENDER PAPER MACHINE Acute on chronic systolic CH F [...] of this encounter (statuses as of 06/12/2023) [facility] History of Past illness Narrative* Problem Noted [...] dose of 40mg daily. Annie Corrales RN TONGUE LINING STITCHER.BACK TENDER PAPER MACHINE Acute on chronic systolic CH F [...] with chroni c obstructive pulmonary disease (COPD) ([facility]) 12/30/2014 7 Venous insufficiency, peripheral 01/06/2014 11/25/2019 Esophagitis, unspecified 09/25/2012 Special screening for malign ant neoplasms, colon 09/06/2012 06/13/2018 Tobacco abuse 12/27/2011 10/01/2012 documented as of this encounter (statuses as of 06/24/2023) [facility] History of Past illness Narrative* Problem Noted [...] dose of 40mg daily. Annie Corrales RN TONGUE LINING STITCHER.BACK TENDER PAPER MACHINE Acute on chronic systolic CH F [...] of this encounter (statuses as of 06/27/2023) [facility] History of Past illness Narrative* Problem Noted [...] dose of 40mg daily. Annie Corrales, RN TONGUE LINING STITCHER.BACK TENDER PAPER MACHINE Acute on chronic systolic CH F [...] of this encounter (statuses as of 07/12/2023) [facility] History of Past illness Narrative* Problem Noted [...] dose of 40mg daily. Annie Corrales RN TONGUE LINING STITCHER.BACK TENDER PAPER MACHINE Acute on chronic systolic CH F [...] of this encounter (statuses as of 07/20/2023) [facility] History of Past illness Narrative* Problem Noted [...] dose of 40mg daily. Annie Corrales RN TONGUE LINING STITCHER.BACK TENDER PAPER MACHINE Acute on chronic systolic CH F [...] of this encounter (statuses as of 07/23/2023) [facility] History of Past illness Narrative* Problem Noted [...] dose of 40mg daily. Annie Corrales RN TONGUE LINING STITCHER.BACK TENDER PAPER MACHINE Acute on chronic systolic CH F [...] of this encounter (statuses as of 07/26/2023) [facility] History of Past illness Narrative* Problem Noted [...] dose of 40mg daily. Annie Corrales RN TONGUE LINING STITCHER.BACK TENDER PAPER MACHINE Acute on chronic systolic CH F [...] of this encounter (statuses as of 07/27/2023) [facility] History of Past illness Narrative* Problem Noted [...] dose of 40mg daily. Annie Corrales RN TONGUE LINING STITCHER.BACK TENDER PAPER MACHINE Acute on chronic systolic CH F [...] of this encounter (statuses as of 07/27/2023) [facility] History of Past illness Narrative* Problem Noted [...] dose of 40mg daily. Annie Corrales RN TONGUE LINING STITCHER.BACK TENDER PAPER MACHINE Acute on chronic systolic CH F [...] of this encounter (statuses as of 07/27/2023) [facility] History of Past illness Narrative* Problem Noted [...] dose of 40mg daily. Annie Corrales RN TONGUE LINING STITCHER.BACK TENDER PAPER MACHINE Acute on chronic systolic CH F [...] of this encounter (statuses as of 08/01/2023) [facility] History of Past illness Narrative* Problem Noted [...] dose of 40mg daily. Annie Corrales RN TONGUE LINING STITCHER.BACK TENDER PAPER MACHINE Acute on chronic systolic CH F [...] of this encounter (statuses as of 08/01/2023) [facility] History of Past illness Narrative* Problem Noted [...] dose of 40mg daily. Annie Corrales RN TONGUE LINING STITCHER.BACK TENDER PAPER MACHINE Acute on chronic systolic CH F [...] of this encounter (statuses as of 08/03/2023) [facility] History of Past illness Narrative* Problem Noted [...] dose of 40mg daily. Annie Corrales RN TONGUE LINING STITCHER.BACK TENDER PAPER MACHINE Acute on chronic systolic CH F [...] of this encounter (statuses as of 08/09/2023) [facility] History of Past illness Narrative* Problem Noted [...] dose of 40mg daily. Annie Corrales RN TONGUE LINING STITCHER.BACK TENDER PAPER MACHINE Acute on chronic systolic CH F [...] of this encounter (statuses as of 08/19/2023) [facility] History of Past illness Narrative* Problem Noted [...] dose of 40mg daily. Annie Corrales RN TONGUE LINING STITCHER.BACK TENDER PAPER MACHINE Acute on chronic systolic CH F [...] of this encounter (statuses as of 08/21/2023) [facility] History of Past illness Narrative* Problem Noted [...] dose of 40mg daily. Annie Corrales RN TONGUE LINING STITCHER.BACK TENDER PAPER MACHINE Acute on chronic systolic CH F [...] of this encounter (statuses as of 09/19/2023) [facility] History of Past illness Narrative* Problem Noted [...] dose of 40mg daily. Annie Corrales RN TONGUE LINING STITCHER.BACK TENDER PAPER MACHINE Acute on chronic systolic CH F [...] of this encounter (statuses as of 10/27/2023) [facility] History of Past illness Narrative* Problem Noted [...] dose of 40mg daily. Annie Corrales RN TONGUE LINING STITCHER.BACK TENDER PAPER MACHINE Acute on chronic systolic CH F [...] of this encounter (statuses as of 11/01/2023) [facility] History of Past illness Narrative* Problem Noted [...] dose of 40mg daily. Annie Corrales, RN TONGUE LINING STITCHER.BACK TENDER PAPER MACHINE Acute on chronic systolic CH F [...] of this encounter (statuses as of 11/06/2023) [facility] History of Past illness Narrative* Problem Noted [...] dose of 40mg daily. Annie Corrales RN TONGUE LINING STITCHER.BACK TENDER PAPER MACHINE Acute on chronic systolic CH F [...] of this encounter (statuses as of 11/23/2023) [facility] History of Past illness Narrative* Problem Noted [...] dose of 40mg daily. Annie Corrales RN TONGUE LINING STITCHER.BACK TENDER PAPER MACHINE Acute on chronic systolic CH F [...] of this encounter (statuses as of 11/27/2023) [facility] History of Past illness Narrative* Problem Noted [...] dose of 40mg daily. Annie Corrales RN TONGUE LINING STITCHER.BACK TENDER PAPER MACHINE Acute on chronic systolic CH F [...] with chroni c obstructive pulmonary disease (COPD) ([facility]) 12/30/2014 7 Venous insufficiency, peripheral 01/06/2014 11/25/2019 Esophagitis, unspecified 09/25/2012 Special screening for malign ant neoplasms, colon 09/06/2012 06/13/2018 Tobacco abuse 12/27/2011 10/01/2012 documented as of this encounter (statuses as of 12/21/2023) [facility] History of Past illness Narrative* Problem Noted [...] dose of 40mg daily. 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 Annie Corrales RN TONGUE LINING STITCHER.BACK TENDER PAPER MACHINE Acute on chronic systolic CH F [...] of this encounter (statuses as of 01/04/2024) [facility] noteNo assessment information availableWClermont [facility] Work Phone: Evaluation note* Diagnosis 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HCC)- Primary Obstructive chronic bronchitis without exacerbation Cough Non-seasonal allergic rhinitis, unspecified trigger Pulmonary arterial hypertension (HCC) Other chronic pulmonary heart diseases Acute bronchitis, unspecified organism Former smoker Personal history of tobacco use, presenting hazards to health documented in this encounter [facility] Diagnosis C[facility]- Primary [facility] Discoloration and thickening of nails both feet [facility] in this [facility] Diagnosis Discoloration and thickening of nails both feet [facility] Diagnosis Hypomagnesemia Disorders of magnesium metabolism documented in this encounter [facility] note* Diagnosis Type 2 diabetes mellitus without [...] cyst Ganglion, unspecified documented in this encounter [facility] note* Diagnosis Dupuytren's contracture- Primary Contracture of palmar fascia Ganglion cyst Ganglion, unspecified Pain in finger of right hand Pain in limb Left hand pain Pain in limb Dupuytren's contracture Contracture of palmar fascia Ganglion cyst Ganglion, unspecified Pain in finger of right hand Pain in limb Left hand pain Pain in limb documented in this encounter [facility] note* Diagnosis Multiple myeloma in remission (HCC) Multiple myeloma in remission 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HCC) Peripheral stem cells replaced by transplant Dupuytren's contracture Contracture of palmar fascia Ganglion cyst Ganglion, unspecified Pain in finger of right hand Pain in limb Left hand pain Pain in limb [facility] Dupuytren's disease of palm- Primary Contracture of palmar fascia Ganglion cyst Ganglion, unspecified Pain in finger of right hand Pain in limb Left hand pain Pain in limb [facility] Diagnosis Pain of left hand- Primary [facility] Sw[facility] of left hand- Primary Ganglion cyst Ganglion, unspecified Dupuytren's contracture Contracture of palmar fascia [facility] Diagnosis Pain of left hand [facility] in [facility] Diagnosis Vitamin D deficiency Unspecified vitamin D deficiency [facility] Diagnosis Multiple myeloma in remission (HCC)- Primary Multiple myeloma in remission H/O autologous stem cell transplant ([facility]) Peripheral stem cells replaced by transplant [facility] Diagnosis Swelling of left hand- Primary Ganglion cyst Ganglion, unspecified [facility] Diagnosis Ganglion cyst- Primary Ganglion, unspecified [facility] Diagnosis Multiple myeloma in remission (HCC) Multiple myeloma in remission 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[facility]) Peripheral stem cells replaced by transplant Encounter for immunization- Primary Need for other specified prophylactic vaccination against single bacterial disease [facility] Diagnosis Vitamin D deficiency Unspecified vitamin D deficiency Encounter for immunization- Primary Need for other specified prophylactic vaccination against single bacterial disease [facility] Diagnosis Inflammatory polyarthropathy (HCC)- Primary Unspecified inflammatory polyarthropathy Encounter for immunization Need for other specified prophylactic vaccination against single bacterial disease ED (erectile dysfunction) of organic origin Impotence of organic origin [facility] Diagnosis Hypomagnesemia Disorders of magnesium metabolism [facility]* Diagnosis Simple chronic bronchitis (HCC)- Primary Simple chronic bronchitis Former cigarette smoker Personal history of tobacco use, presenting hazards to health Post-nasal drip Postnasal drip [facility]* Diagnosis Type 2 diabetes mellitus without complication, without long-term current use of insulin ([facility]) [facility] Diagnosis Type 2 diabetes mellitus without complication, without long-term current use of insulin (HCC) [facility]* Diagnosis Type 2 diabetes mellitus without complication, without long-term current use of insulin (HCC) [facility] Diagnosis Medicare annual wellness visit, subsequent- Primary Routine general medical examination at a health care facility Type 2 diabetes mellitus without complication, without long-term current use of insulin (HCC) Diabetic eye exam ([facility]) Type II or unspecified type diabetes mellitus [...] leg edema Edema [facility] Diagnosis Multiple myeloma in remission (HCC)- Primary Multiple myeloma in remission H/O autologous stem cell transplant (HCC) Peripheral stem cells replaced by transplant [facility] Diagnosis Multiple myeloma in remission (HCC) Multiple myeloma in remission H/O autologous stem cell transplant (HCC) Peripheral stem cells replaced by transplant [facility] Diagnosis 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HCC)- Primary Obstructive chronic bronchitis without exacerbation Lung nodules Other nonspecific abnormal finding of lung field Former cigarette smoker Personal history of tobacco use, presenting hazards to health [facility] Diagnosis Bilateral leg edema- Primary Edema Essential hypertension Unspecified essential hypertension [facility] Diagnosis Multiple myeloma in remission (HCC)- Primary Multiple myeloma in remission [facility] Diagnosis Bilateral leg edema- [...] vitamin D deficiency [facility] Diagnosis Onset Date Resolution Status Debility acute Diabetes mellitus acute GERD (gastroesophageal reflux disease) acute History of multiple myeloma acute Hyperlipidemia acute Osteoarthritis acute Rheumatoid arthritis acute Thoracic spinal stenosis acu te COPD (chronic obstructive pulmonary disease) [facility] Work Phone: Evaluation note* Diagnosis Onset Date Resolution Status Debility acute Diabetes mellitus acute GERD (gastroesophageal reflux disease) acute History of multiple myeloma acute Hyperlipidemia acute Osteoarthritis acute Rheumatoid arthritis acute COPD (chronic obstructive pulmonary disease) chronic Thoracic spinal stenosis res olved [facility] Work Phone: Evaluation note* Diagnosis Bilateral leg edema- Primary Edema [facility] Diagnosis Tobacco abuse Tobacco use disorder [facility] Diagnosis 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HCC)- Primary Obstructive chronic bronchitis without exacerbation Irregular heart beat Cardiac dysrhythmia, unspecified Lung nodules Other nonspecific abnormal finding of lung field Former cigarette smoker Personal history of tobacco use, presenting hazards to health [facility] Diagnosis Irregular heart beat- Primary Cardiac dysrhythmia, unspecified [facility]* Diagnosis Type 2 diabetes [...] stage 3a (HCC) [facility]* Diagnosis Hypomagnesemia Disorders of magnesium metabolism [facility] Diagnosis Paroxysmal atrial fibrillation (HCC)- Primary Atrial fibrillation [facility]* Diagnosis URI, acute- Primary Acute upper respiratory infections of unspecified site [facility]* Diagnosis Onset Date Resolution Status Abnormal ECG chronic Diabetes mellitus chronic DVT of lower extremity, bilateral chronic Essential hypertension [facility] Work Phone: Evaluation note* Diagnosis Enlarged LA (left atrium) Cardiomegaly Dilated aortic root (HCC) Thoracic aortic ectasia [facility]* Diagnosis Dysfunction of left eustachian tube- Primary Dysfunction of Eustachian tube [facility] Diagnosis COPD with chronic bronchitis- Primary Obstructive chronic bronchitis without exacerbation Lung nodules Other nonspecific abnormal finding of lung field Need for influenza vaccination Need for prophylactic vaccination and inoculation against influenza Former cigarette smoker Personal history of tobacco use, presenting hazards to health [facility] Diagnosis Ex-smoker Personal history of tobacco use, presenting hazards to health Encounter for abdominal aortic aneurysm (AAA) screening [facility]* Diagnosis Hypomagnesemia Disorders of magnesium metabolism [facility]* Diagnosis Lung nodules Other nonspecific abnormal finding of lung field [facility]* Diagnosis Pre-op testing- Primary Preoperative examination, unspecified [facility]* Diagnosis Diabetic eye exam ([facility]) Type II or unspecified type diabetes mellitus without mention of complication, not stated as uncontrolled [facility]* Diagnosis Hypomagnesemia Disorders of magnesium metabolism Hypomagnesemia- Primary Disorders of magnesium metabolism [facility] Diagnosis COPD with chronic bronchitis- Primary Obstructive chronic bronchitis without exacerbation Former cigarette smoker Personal history of tobacco use, presenting hazards to health Lung nodules Other nonspecific abnormal finding of lung field Irregular heart beat Cardiac dysrhythmia, unspecified Morbid (severe) obesity due to excess calories ([facility]) Hypomagnesemia- Primary Disorders of magnesium metabolism [facility] Diagnosis Encounter for screening for lung cancer- Primary Former cigarette smoker Personal history of tobacco use, presenting hazards to health [facility]* Diagnosis Pre-op examination- Primary Preoperative examination, unspecified Epiretinal membrane (ERM) of left eye Essential hypertension Unspecified essential hypertension Type 2 diabetes mellitus with stage 3a chronic kidney disease, without long-term current use of insulin (HCC) Paroxysmal atrial fibrillation (HCC) Atrial fibrillation [facility]* Diagnosis Type 2 diabetes mellitus without complication, without long-term current use of insulin ([facility]) [facility]* Diagnosis Vertigo- Primary Dizziness and giddiness Neck pain Cervicalgia Muscle spasms of neck Spasm of muscle Essential hypertension Unspecified essential hypertension Mixed hyperlipidemia Type 2 diabetes mellitus without complication, without long-term current use of insulin ([facility]) Gastroesophageal reflux disease, unspecified whether esophagitis present Hypomagnesemia Disorders of magnesium metabolism Low serum vitamin B12 Vitamin D deficiency Unspecified vitamin D deficiency Prostate disorder Unspecified disorder of prostate Medication management Encounter for long-term (current) use of other medications [facility]* Diagnosis Multiple myeloma in remission ([facility])- Primary Multiple myeloma in remission documented [facility]* Diagnosis Pyogenic arthritis of right elbow, due to unspecified organism ([facility])- Primary Iron deficiency anemia, unspecified iron deficiency anemia type Essential hypertension Unspecified essential hypertension Pseudogout Other disorder of calcium metabolism [facility]* Diagnosis COPD, mild ([facility])- Primary Chronic airway obstruction, not elsewhere classified Former cigarette smoker Personal history of tobacco use, presenting hazards to health Lung nodules Other nonspecific abnormal finding of lung field [facility] Diagnosis Bilateral carotid artery stenosis- Primary Occlusion and stenosis of carotid artery without mention of cerebral infarction [facility]* Diagnosis Medicare annual wellness visit, subsequent- Primary Routine general medical examination at a health care facility Diabetic eye exam ([facility]) Type II or unspecified type diabetes mellitus without mention of complication, not stated as uncontrolled Type 2 diabetes mellitus without complication, without long-term current use of insulin (HCC) Essential hypertension Unspecified essential hypertension Mixed hyperlipidemia Bilateral carotid artery stenosis Occlusion and stenosis of carotid artery without mention of cerebral infarction Bilateral leg edema Edema Chronic obstructive pulmonary disease, unspecified COPD type (HCC) Pulmonary hypertension, unspecified (HCC) Dilated aortic root (HCC) Thoracic aortic ectasia [...] Screening for depression [facility] Diagnosis Vertigo Dizziness and giddiness [facility]* Diagnosis Spinal stenosis, lumbar region, without neurogenic claudication [facility]* Diagnosis Pseudogout- Primary Other disorder of calcium metabolism [facility]* Diagnosis Onychomycosis- Primary Dermatophytosis of nail Type 2 diabetes mellitus without complication, without long-term current use of insulin ([facility]) PAD (peripheral artery disease) ([facility]) Peripheral vascular disease, unspecified Callus Corns and callosities [facility]* Diagnosis Type 2 diabetes mellitus without complication, without long-term current use of insulin ([facility]) [facility] Diagnosis Multiple myeloma in remission (HCC)- Primary Multiple myeloma in remission [facility]* Diagnosis Advanced directives, counseling/discussion- [...] 30-34.9 Obesity, unspecified documented in this encounter [facility] note* Diagnosis Diabetic polyneuropathy associated with type 2 diabetes mellitus (HCC)- Primary Onychomycosis Dermatophytosis of nail PAD (peripheral artery disease) Peripheral vascular disease, unspecified Pain in toe of left foot Pain in limb Pain in toe of right foot Pain in limb [facility] Additional Instructions Discharge home with 01/14/2023, [employer] [facility] PT/OT.[facility] Work Phone: Hospital Discharge instructions Additional Instructions Follow-up with your PCP Monday if possible. Return for any worsening of symptoms, return for any shortness of breath or chest pain.[facility] Work Phone: Hospital Discharge instructions Additional Instructions [...] several commercial devices available to you including [employer] mobile. Please refer to manager analysis such as [employer] for more information. Please follow with your primary care physician for further outpatient evaluation and management.[facility] Work Phone: Progress note Author Caio Gomez [facility] Note Date/Time February 21, 2025 10:37 am [facility] [address] [place] [address] [place] [id number] OFFICE VISIT Date of Service: 02/21/25 MR#: [id number] Acct: [id number] Name: RONNIE YARBROUGH Rep #: [id number] : 1950 Provider: Dr. Nancy Gomez MD Age/Sex: 74/M Location: [facility] Status: Signed Intake Vital Signs 12/05/24 10:30 [...] [facility] back surgery was [...] applicable) CC: Dr. Ovidio Vincent MD ~ [facility] [employer] Work Phone: Reason for referral (narrative)* Outpatient Procedure (Routine) - Authorized Specialty Diagnoses / Procedures Referred By Contac t Referred To Contact [facility] Diagnoses Pulmonary arterial hypertension (HCC) Procedures ECHO ECHO TTHRC R-T 2D W/WOM-MODE COMPL SPEC&COLR D Loretta Leon PA-C [address] [address] [facility] [address] [place] [address] Referral ID Status Reason Start Date Expiration Date Visits Requested Visits Authorized [id number] Authorized Auto-Generat ed Referral 07/23/2022 01/20/2023 1 1 * Outpatient Procedure (Routine) - Authorized Specialty Diagnoses / Procedures Referred By Contac t Referred To Contact [facility] Diagnoses 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HCC) Procedures SPIROMETRY BASELINE ONLY SPMTRY W/VC EXPIRATORY LUCIA W/WO MXML VOL VNTJ Loretta Leon PA-C [address] [address] [facility] [address] [place] [address] Referral ID Status Reason Start Date Expiration Date Visits Requested Visits Authorized [id number] Authorized Auto-Generat ed Referral 01/20/2022 02/19/2023 1 1 [facility] for referral (narrative)* Diagnostic Procedure Only (Routine) - Pending Review Specialty Diagnoses / Procedures Referred By Contac t Referred To Contact XR IMAGING Diagnoses Pain of left hand Procedures XR HAND GENERAL 3V PA/LAT/OBL LEFT RADEX HAND MINIMUM 3 VIEWS Mary Lopez PA-C [address] [place] [address] X[facility] Imaging Referral ID Status Reason Start Date Expiration Date Visits Requested Visits Authorized [id number] Pending Review Auto-Generat ed Referral 04/21/2022 05/07/2023 1 1 T [facility] for referral (narrative)* Diagnostic Procedure Only (Routine) - Closed Specialty Diagnoses / Procedures Referred By Contac t Referred To Contact XR IMAGING Diagnoses Pain of left hand Procedures XR HAND GENERAL 3V PA/LAT/OBL LEFT RADEX HAND MINIMUM 3 VIEWS Mary Lopez PA-C [address] [place] [address] Xr Imaging Referral ID Status Reason Start Date Expiration Date V isits Requested Visits Authorized [id number] Closed Auto-Generate d Referral 04/21/2022 05/07/2023 1 1 T [facility] for referral (narrative)* Diagnostic Procedure Only (Routine) - Authorized Specialty Diagnoses / Procedures Referred By Contac t Referred To Contact XR IMAGING Diagnoses Multiple myeloma in remission (HCC) H/O autologous stem cell transplant (HCC) Procedures XR BONE SURVEY ROUTINE RADIOLOGIC EXAMINATION OSSEOUS SURVEY COMPL Angelita, Lapman, MD [address] [place] [address] Xr Imaging Referral ID Status Reason Start Date Expiration Date Visits Requested Visits Authorized [id number] Authorized Auto-Generat ed Referral 04/26/2022 05/26/2023 1 1 [facility] for referral (narrative)* Diagnostic Procedure Only (Routine) - Closed Specialty Diagnoses / Procedures Referred By Contac t Referred To Contact XR IMAGING Diagnoses Multiple myeloma in remission (HCC) H/O autologous stem cell transplant (HCC) Procedures XR BONE SURVEY ROUTINE RADIOLOGIC EXAMINATION OSSEOUS SURVEY COMPL Ela Alvarez MD [address] [place] [address] Xr Imaging Referral ID Status Reason Start Date Expiration Date V isits Requested Visits Authorized [id number] Closed Auto-Generate d Referral 04/26/2022 05/26/2023 1 1 [facility] for referral (narrative)* Diagnostic Procedure Only (Routine) - Closed Specialty Diagnoses / Procedures Referred By Contac t Referred To Contact US IMAGING Diagnoses Ex-smoker Encounter for abdominal aortic aneurysm (AAA) screening Procedures US SCREENING FOR AAA (2017) US ABDOMINAL AORTA REAL TIME SCREEN STUDY AAA Ovidio Vincent MD [address] [place] [address] [facility] Referral ID Status Reason Start Date Expiration Date V isits Requested Visits Authorized [id number] Closed Auto-Generate d Referral 12/16/2022 01/15/2024 1 1 T [facility] for referral (narrative)* Outpatient Procedure (Urgent) - Closed Specialty Diagnoses / Procedures Referred By Contac t Referred To [facility] Diagnoses Bilateral leg edema Procedures US LEG VEIN DVT [facility] DUP-SCAN XTR VEINS COMPLETE BILATERAL STUDY Ovidio Vincent MD [address] [place] [address] [facility] [address] [place] [address] Referral ID Status Reason Start Date Expiration Date V isits Requested Visits Authorized [id number] Closed Auto-Generate d Referral 02/17/2023 02/17/2024 1 1 [facility] for referral (narrative)* Outpatient Procedure (Routine) - Pending Review Specialty Diagnoses / Procedures Referred By Contac t Referred To Contact [facility] Diagnoses Irregular heart beat Procedures ECG COMPLETE ECG ROUTINE ECG W/LEAST 12 LDS W/I&R Loretta Leon PA-C [address] [place] [address] [facility] [place] [address] [place] [address] Referral ID Status Reason Start Date Expiration Date Visits Requested Visits Authorized [id number] Pending Review Auto-Generat ed Referral 03/20/2023 03/19/2024 1 1 [facility] for referral (narrative)* Diagnostic Procedure Only (Routine) - Closed Specialty Diagnoses / Procedures [facility] Diagnoses Ex-smoker Encounter for abdominal aortic aneurysm (AAA) screening Procedures US SCREENING FOR AAA (2017) US ABDOMINAL AORTA REAL TIME SCREEN STUDY AAA Ovidio Vincent MD [address] [place] [address] [place] [id number] Referral ID Status Reason Start Date Expiration Date V isits Requested Visits Authorized [id number] Closed Auto-Generate d Referral 12/16/2022 01/15/2024 1 1 [facility] for referral (narrative)* Diagnostic Procedure Only (Routine) - Closed Specialty Diagnoses / Procedures [facility] XR IMAG[facility] Diagnoses Spinal stenosis, lumbar region, without neurogenic claudication Procedures XR LUMBAR PARS DEFECT 4V AP/LAT/BOTH OBL RADEX SPINE LUMBOSACRAL MINIMUM 4 VIEWS Ovidio Vincent MD [address] [place] [address] [place] [id number] Referral ID Status Reason Start Date Expiration Date V isits Requested Visits Authorized [id number] Closed Auto-Generate d Referral 09/30/2022 10/30/2023 1 1 [facility] for referral (narrative)* Outpatient Procedure (Routine) - Authorized Specialty Diagnoses / Procedures Referred By Contac t Referred To Contact [facility] Diagnoses PAD (peripheral artery disease) ([facility]) Procedures PVR ANK PRESS [facility] NON-INVAS PHYSIOLOGIC STD EXTREMITY ART 2 LEVEL Esvin Marcus [address] [place] [address] [facility] [address] [place] [id number] Referral ID Status Reason Start Date Expiration Date Visits Requested Visits Authorized [id number] Authorized Auto-Generat ed Referral 07/02/2025 1 1 [facility] for referral (narrative)No reason for referral information [facility] Work [facility]: Reason for visit Narrative* Diagnostic Procedure Only (Routine) - Closed Specialty Diagnoses / Procedures Referred By Contac t Referred To Contact XR IMAGING Diagnoses Pain of left hand Procedures XR HAND GENERAL 3V PA/LAT/OBL LEFT RADEX HAND MINIMUM 3 VIEWS Mary Lopez PA-C [address] [place] [address] Xr Imaging Referral ID Status Reason Start Date Expiration Date V isits Requested Visits Authorized [id number] Closed Auto-Generate d Referral 04/21/2022 05/07/2023 1 1 [facility] for visit Narrative* Diagnostic Procedure Only (Routine) - Closed Specialty Diagnoses / Procedures Referred By Contac t Referred To Contact XR IMAGING Diagnoses Multiple myeloma in remission (HCC) H/O autologous stem cell transplant (HCC) Procedures XR BONE SURVEY ROUTINE RADIOLOGIC EXAMINATION OSSEOUS SURVEY Ela Garza MD [address] [place] [address] Xr Imaging Referral ID Status Reason Start Date Expiration Date V isits Requested Visits Authorized [id number] Closed Auto-Generate d Referral 04/26/2022 05/26/2023 1 1 [facility] Procedure Only (Routine) - Closed Specialty Diagnoses / Procedures Referred By Contac t Referred To Contact XR IMAGING Diagnoses Spinal stenosis, lumbar region, without neurogenic claudication Procedures XR LUMBAR PARS DEFECT 4V AP/LAT/BOTH OBL RADEX SPINE LUMBOSACRAL MINIMUM 4 VIEWS Ovidio Vincent MD [address] [place] [address] [place] [address] Referral ID Status Reason Start Date Expiration Date V isits Requested Visits Authorized [id number] Closed Auto-Generate d Referral 09/30/2022 10/30/2023 1 1 [facility] Advance Directives No Advanced Directives Records FoundDocuments on File Type Date Recorded Patient Saw Edge Fuser Circular Expl anation Advance Directive(s) 10/22/2019 2:04 PM Advance Directive(s) 06/13/2018 10:45 AM Advance Directive(s) 11/16/2017 8:42 AM Advance Directive(s) 12/28/2011 12:00 AM Advance Directive(s) 11/03/2006 12:00 AM Advance Directive Response Recorded Date/ Time Advance Directives Yes October 07, 2017 9:22pm Living Will Yes October 07 9:22pm Power of Hemodialysis Lab Technician Yes October 07, 2017 9:22pm Documents on File Type Date Recorded Patient Saw Edge Fuser Circular Expl anation Advance Directive(s) 10/22/2019 2:04 PM Advance Directive(s) 06/13/2018 10:45 AM Advance Directive(s) 11/16/2017 8:42 AM Advance Directive(s) 12/28/2011 12:00 AM Advance Directive(s) 11/03/2006 12:00 AM Documents on File Type Date Recorded Patient Saw Edge Fuser Circular Expl anation Advance Directive(s) 04/07/2022 1:23 PM Advance Directive(s) 10/22/2019 2:04 PM Advance Directive(s) 06/13/2018 10:45 AM Advance Directive(s) 11/16/2017 8:42 AM Advance Directive(s) 12/28/2011 12:00 AM Advance Directive(s) 11/03/2006 12:00 AM Documents on File Type Date Recorded Patient Saw Edge Fuser Circular Expl anation Advance Directive(s) 04/07/2022 1:23 PM Advance Directive(s) 10/22/2019 2:04 PM Advance Directive(s) 06/13/2018 10:45 AM Advance Directive(s) 11/16/2017 8:42 AM Advance Directive(s) 12/28/2011 12:00 AM Advance Directive(s) 11/03/2006 12:00 AM Documents on File Type Date Recorded Patient Saw Edge Fuser Circular Expl anation Advance Directive(s) 12/28/2011 Advance Directive(s) 11/03/2006 Documents on File Type Date Recorded Patient Saw Edge Fuser Circular Expl anation Advance Directive(s) 12/28/2011 Advance Directive(s) 11/03/2006 Advance Directive Response Recorded Date/ Time Advance Directives Yes October 07, 2017 8:22pm Living Will Yes October 07 8:22pm Power of Hemodialysis Lab Technician Yes October 07, 2017 8:22pm Advance Directive Response Recorded Date/ Time Advance Directives Yes October 07, 2017 9:22pm Living Will Yes January 05, 2023 3:02pm Power of Hemodialysis Lab Technician Yes January 05 3:02pm Name of Medical Power of Hemodialysis Lab Technician Yesenia Yarbrough January 05, 2023 3:02pm Advance Directive Response Recorded Date/ Time Name of Medical Power of Hemodialysis Lab Technician Yesenia Yarbrough January 05, 2023 3:02pm Name of Medical Power of Hemodialysis Lab Technician February 10, 2023 8:37am Name of Medical Power of Hemodialysis Lab Technician FORGETS NAME February 17, 2023 12:37pm Advance Directives Yes October 07, 2017 9:22pm Living Will Yes February 17, 2023 1 2:37pm Power of Hemodialysis Lab Technician Yes February 17, 2023 12:37pm Advance Directive Response Recorded Date/ Time Name of Medical Power of Hemodialysis Lab Technician Yesenia Yarbrough January 05, 2023 3:02pm Name of Medical Power of Hemodialysis Lab Technician February 10, 2023 8:37am Name of Medical Power of Hemodialysis Lab Technician FORGETS NAME February 17, 2023 12:37pm Name of Medical Power of Hemodialysis Lab Technician n/a March 22, 2023 4:54pm Advance Directives Yes October 07, 2017 9:22pm Living Will Yes March 22, 2023 4 :54pm Power of Hemodialysis Lab Technician Yes March 22, 2023 4:54pm Advance Directive Response Recorded Date/ Time Name of Medical Power of Hemodialysis Lab Technician February 10, 2023 8:37am Name of Medical Power of Hemodialysis Lab Technician FORGETS NAME February 17, 2023 12:37pm Name of Medical Power of Hemodialysis Lab Technician n/a March 22, 2023 4:54pm Advance Directives Yes October 07, 2017 9:22pm Living Will Yes March 22, 2023 4 :54pm Power of Hemodialysis Lab Technician Yes March 22, 2023 4:54pm Advance Directive Response Recorded Date/ Time Advance Directives Yes October 07, 2017 8:22pm Living Will Yes March 22, 2023 3 :54pm Power of Hemodialysis Lab Technician Yes March 22, 2023 3:54pm Advance Directive Response Recorded Date/ Time Advance Directives Yes October 07, 2017 9:22pm Advance Directive Response Recorded Date/ Time Do you have a Healthcare Power of Hemodialysis Lab Technician? Yes February 04, 2025 9:31am Advance Directives Yes October 07, 2017 9:22pm [...] Thoracolumbar kyphosis February 21, 2025 9: 51am Chief Complaint Admit Date LUMBAR SPINE December 05, 2024 10: 23am RM 1 December 05, 2024 10: 42am LUMBAR SPINE January 02, 2025 3:2 0pm 6 M FU February 17, 2025 10:45 am back pain February 21, 2025 9:51a m Surgical Clearance February 26, 2025 6:01 am Open thoracic laminectomy, spinal cord s timulator March 04, 2025 5:19am Open thoracic laminectomy, spinal cord s timulator March 04, 2025 7:16am Reason for Referral Specialty Diagnoses / Procedures Referred By Contac t Referred To Contact Orthopedics Diagnoses Ganglion cyst Procedures CONSULT TO ORTHOPAEDICS OFFICE/OUTPATIENT [facility] 60-74 MINUTES Leslye Winter PA-C [address] [place] [address] Referral ID Status Reason Start Date Expiration Date Visits Requested Visits Authorized [id number] Pending Review PCP Requested Referral 03/22/2022 03/22/2023 1 1 Specialty Diagnoses / Procedures Referred By Contac t Referred To Contact Rheumatology Diagnoses Inflammatory polyarthropathy (HCC) Procedures CONSULT TO RHEUM/IMMUN DISEASE OFFICE/OUTPATIENT [facility] 60-74 MINUTES Leslye Winter PA-C [address] [place] [address] Referral ID Status Reason Start Date Expiration Date Visits Requested Visits Authorized [id number] Pending Review PCP Requested Referral 03/22/2022 03/22/2023 1 1 Specialty Diagnoses / Procedures Referred By Contac t Referred To Contact Rheumatology Diagnoses Inflammatory polyarthropathy (HCC) Procedures CONSULT TO RHEUM/IMMUN DISEASE OFFICE/OUTPATIENT [facility] 60-74 MINUTES Ovidio Vincent MD [address] [place] [address] Referral ID Status Reason Start Date Expiration Date Visits Requested Visits Authorized [id number] Pending Review PCP Requested Referral 2 07/04/2023 1 1 Specialty Diagnoses / Procedures Referred By Contac t Referred To Contact [facility] Diagnoses Spinal stenosis, lumbar region, without neurogenic claudication Procedures CONSULT TO PAIN MGT OFFICE/OUTPATIENT [facility] 60-74 MINUTES Ovidio Vincent MD [facility] [place] [address] [facility] [address] [place] [address] Referral ID Status Reason Start Date Expiration Date V isits Requested Visits Authorized [id number] Closed PCP Requested Referral 09/30/2022 09/30/2023 1 1 Specialty Diagnoses / Procedures Referred By Contac t Referred To Contact XR IMAGING Diagnoses Spinal stenosis, lumbar region, without neurogenic claudication Procedures XR LUMBAR PARS DEFECT 4V AP/LAT/BOTH OBL RADEX SPINE LUMBOSACRAL MINIMUM 4 VIEWS Ovidio Vincent MD [facility] [place] [address] Xr Imaging Referral ID Status Reason Start Date Expiration Date Visits Requested Visits Authorized [id number] Pending Review Auto-Generat ed Referral 09/30/2022 10/30/2023 1 1 Specialty Diagnoses / Procedures Referred By Contac t Referred To Contact CT IMAGING Diagnoses Lung nodules Procedures CT CHEST WO IVCON DIAGNOSTIC COMPUTED TOMOGRAPHY THORAX W/O Hayde Welch MD [address] [place] [address] Ct Imaging Referral ID Status Reason Start Date Expiration Date Visits Requested Visits Authorized [id number] Authorized Auto-Generat ed Referral 03/07/2023 11/27/2023 1 1 Specialty Diagnoses / Procedures Referred By Contac t Referred To Contact Cardiology Diagnoses Paroxysmal atrial fibrillation (HCC) Procedures CONSULT TO CARDIOLOGY OFFICE/OUTPATIENT [facility] MDM 60-74 MINUTES Ovidio Vincent MD [address] [place] [address] Referral ID Status Reason Start Date Expiration Date Visits Requested Visits Authorized [id number] Pending Review PCP Requested Referral 04/05/2023 04/04/2024 1 1 Specialty Diagnoses / Procedures Referred By Contac t Referred To Contact CT IMAGING Diagnoses Lung nodules Procedures CT CHEST WO IVCON DIAGNOSTIC COMPUTED TOMOGRAPHY THORAX W/O CNTRST Loretta Leon PA-C [address] [place] [id number] Ct Imaging [id number] Referral ID Status Reason Start Date Expiration Date Visits Requested Visits Authorized [id number] Authorized Auto-Generat ed Referral 08/10/2024 1 1 Specialty Diagnoses / Procedures Referred By Contac t Referred To Contact MR IMAGING Diagnoses Vertigo Procedures MRI BRAIN WO IVCON MRI BRAIN BRAIN STEM W/O CONTRAST MATERIAL Ovidio Vincent MD [facility] [place] [address] Mr Imaging [id number] Referral ID Status Reason Start Date Expiration Date Visits Requested Visits Authorized [id number] Authorized Auto-Generat ed Referral 04/16/2024 05/16/2025 1 1 Specialty Diagnoses / Procedures Referred By Contac t Referred To Contact [facility] Diagnoses Vertigo Procedures CONSULT TO PHYSICAL THERAPY PHYSICAL THERAPY EVALUATION HIGH COMPLEX 45 MINS Ovidio Vincent MD [facility] [place] [address] [facility] [place] [address] [place] [address] Referral ID Status Reason Start Date Expiration Date Visits Requested Visits Authorized [id number] Pending Review Auto-Generat ed Referral 04/16/2024 04/16/2025 1 1 Specialty Diagnoses / Procedures Referred By Contac t Referred To Contact [facility] Diagnoses Neck pain Muscle spasms of neck Procedures CONSULT TO PHYSICAL THERAPY PHYSICAL THERAPY EVALUATION HIGH COMPLEX 45 MINS Ovidio Vincent MD [address] [place] [address] [facility] [address] [place] [address] Referral ID Status Reason Start Date Expiration Date Visits Requested Visits Authorized [id number] Pending Review Auto-Generat ed Referral 04/16/2024 04/16/2025 1 1 Specialty Diagnoses / Procedures Referred By Contac t Referred To Contact [facility] Diagnoses Vertigo Procedures US CAROTID ARTERIES ALESSANDRA VAS LAB DUPLEX SCAN EXTRACRANIAL ART COMPL BI STUDY Ovidio Vincent MD [address] [place] [address] [facility] [address] [place] [address] Referral ID Status Reason Start Date Expiration Date Visits Requested Visits Authorized [id number] Authorized Auto-Generat ed Referral 04/16/2024 04/16/2025 1 1 Specialty Diagnoses / Procedures Referred By Contac t Referred To Contact Infectious Diseases Diagnoses Pyogenic arthritis of right elbow, due to unspecified organism (HCC) Procedures CONSULT TO INFECTIOUS DISEASES OFFICE/OUTPATIENT [facility] 60 MINUTES Leslye Winter PA-C [address] [place] [address] Referral ID Status Reason Start Date Expiration Date Visits Requested Visits Authorized [id number] Authorized PCP Requested Referral 05/27/2024 05/27/2025 1 1 Specialty Diagnoses / Procedures Referred By Contac t Referred To Contact Podiatry Diagnoses Type 2 diabetes mellitus without complication, without long-term current use of insulin (HCC) Foot callus Procedures CONSULT TO PODIATRY OFFICE/OUTPATIENT [facility] 60 MINUTES Ovidio Vincent MD [address] [place] [address] Referral ID Status Reason Start Date Expiration Date Visits Requested Visits Authorized [id number] Authorized PCP Requested Referral 05/30/2024 05/30/2025 1 1 Referral ID Status Reason Start Date Expiration Date V isits Requested Visits Authorized [id number] Closed Auto-Generate d Referral 04/16/2024 05/16/2025 1 [...] or prosecute any alcohol or drug abuse patient.[facility] the event this information is protected by the Federal Confidentiality of Alcohol and Drug Abuse Patient Records regulations: The Federal rules restrict any use of the information to criminally investigate or prosecute any alcohol or drug abuse patient.[facility] HospitalIn the event this information is protected by the Federal Confidentiality of Alcohol and Drug Abuse Patient Records regulations: The Federal rules restrict any use of the information to criminally investigate or prosecute any alcohol or drug abuse patient.[facility] HospitalIn the event this information is protected by the Federal Confidentiality of Alcohol and Drug Abuse Patient Records regulations: The Federal rules restrict any use of the information to criminally investigate or prosecute any alcohol or drug abuse patient.[facility] HospitalIn the event this information is protected by the Federal Confidentiality of Alcohol and Drug Abuse Patient Records regulations: The Federal rules restrict any use of the information to criminally investigate or prosecute any alcohol or drug abuse patient.[facility] HospitalIn the event this information is protected by the Federal Confidentiality of Alcohol and Drug Abuse Patient Records regulations: The Federal rules restrict any use of the information to criminally investigate or prosecute any alcohol or drug abuse patient.[facility] HospitalIn the event this information is protected by the Federal Confidentiality of Alcohol and Drug Abuse Patient Records regulations: The Federal rules restrict any use of the information to criminally investigate or prosecute any alcohol or drug abuse patient.[facility] HospitalIn the event this information is protected by the Federal Confidentiality of Alcohol and Drug Abuse Patient Records regulations: The Federal rules restrict any use of the information to criminally investigate or prosecute any alcohol or drug abuse patient.[facility] HospitalIn the event this information is protected by the Federal Confidentiality of Alcohol and Drug Abuse Patient Records regulations: The Federal rules restrict any use of the information to criminally investigate or prosecute any alcohol or drug abuse patient.[facility] HospitalIn the event this information is protected by the Federal Confidentiality of Alcohol and Drug Abuse Patient Records regulations: The Federal rules restrict any use of the information to criminally investigate or prosecute any alcohol or drug abuse patient.[facility] HospitalIn the event this information is protected by the Federal Confidentiality of Alcohol and Drug Abuse Patient Records regulations: The Federal rules restrict any use of the information to criminally investigate or prosecute any alcohol or drug abuse patient.[facility] HospitalIn the event this information is protected by the Federal Confidentiality of Alcohol and Drug Abuse Patient Records regulations: The Federal rules restrict any use of the information to criminally investigate or prosecute any alcohol or drug abuse patient.[facility] HospitalIn the event this information is protected by the Federal Confidentiality of Alcohol and Drug Abuse Patient Records regulations: The Federal rules restrict any use of the information to criminally investigate or prosecute any alcohol or drug abuse patient.[facility] HospitalIn the event this information is protected by the Federal Confidentiality of Alcohol and Drug Abuse Patient Records regulations: The Federal rules restrict any use of the information to criminally investigate or prosecute any alcohol or drug abuse patient.[facility] HospitalIn the event this information is protected by the Federal Confidentiality of Alcohol and Drug Abuse Patient Records regulations: The Federal rules restrict any use of the information to criminally investigate or prosecute any alcohol or drug abuse patient.[facility] HospitalIn the event this information is protected by the Federal Confidentiality of Alcohol and Drug Abuse Patient Records regulations: The Federal rules restrict any use of the information to criminally investigate or prosecute any alcohol or drug abuse patient.[facility] HospitalIn the event this information is protected by the Federal Confidentiality of Alcohol and Drug Abuse Patient Records regulations: The Federal rules restrict any use of the information to criminally investigate or prosecute any alcohol or drug abuse patient.[facility] HospitalIn the event this information is protected by the Federal Confidentiality of Alcohol and Drug Abuse Patient Records regulations: The Federal rules restrict any use of the information to criminally investigate or prosecute any alcohol or drug abuse patient.[facility] HospitalIn the event this information is protected by the Federal Confidentiality of Alcohol and Drug Abuse Patient Records regulations: The Federal rules restrict any use of the information to criminally investigate or prosecute any alcohol or drug abuse patient.[facility] HospitalIn the event this information is protected by the Federal Confidentiality of Alcohol and Drug Abuse Patient Records regulations: The Federal rules restrict any use of the information to criminally investigate or prosecute any alcohol or drug abuse patient.[facility] HospitalIn the event this information is protected by the Federal Confidentiality of Alcohol and Drug Abuse Patient Records regulations: The Federal rules restrict any use of the information to criminally investigate or prosecute any alcohol or drug abuse patient.[facility] HospitalIn the event this information is protected by the Federal Confidentiality of Alcohol and Drug Abuse Patient Records regulations: The Federal rules restrict any use of the information to criminally investigate or prosecute any alcohol or drug abuse patient.[facility] HospitalIn the event this information is protected by the Federal Confidentiality of Alcohol and Drug Abuse Patient Records regulations: The Federal rules restrict any use of the information to criminally investigate or prosecute any alcohol or drug abuse patient.[facility] HospitalIn the event this information is protected by the Federal Confidentiality of Alcohol and Drug Abuse Patient Records regulations: The Federal rules restrict any use of the information to criminally investigate or prosecute any alcohol or drug abuse patient.[facility] HospitalIn the event this information is protected by the Federal Confidentiality of Alcohol and Drug Abuse Patient Records regulations: The Federal rules restrict any use of the information to criminally investigate or prosecute any alcohol or drug abuse patient.[facility] HospitalIn the event this information is protected by the Federal Confidentiality of Alcohol and Drug Abuse Patient Records regulations: The Federal rules restrict any use of the information to criminally investigate or prosecute any alcohol or drug abuse patient.[facility] HospitalIn the event this information is protected by the Federal Confidentiality of Alcohol and Drug Abuse Patient Records regulations: The Federal rules restrict any use of the information to criminally investigate or prosecute any alcohol or drug abuse patient.[facility] HospitalIn the event this information is protected by the Federal Confidentiality of Alcohol and Drug Abuse Patient Records regulations: The Federal rules restrict any use of the information to criminally investigate or prosecute any alcohol or drug abuse patient.[facility] HospitalIn the event this information is protected by the Federal Confidentiality of Alcohol and Drug Abuse Patient Records regulations: The Federal rules restrict any use of the information to criminally investigate or prosecute any alcohol or drug abuse patient.[facility] HospitalIn the event this information is protected by the Federal Confidentiality of Alcohol and Drug Abuse Patient Records regulations: The Federal rules restrict any use of the information to criminally investigate or prosecute any alcohol or drug abuse patient.[facility] HospitalIn the event this information is protected by the Federal Confidentiality of Alcohol and Drug Abuse Patient Records regulations: The Federal rules restrict any use of the information to criminally investigate or prosecute any alcohol or drug abuse patient.[facility] HospitalIn the event this information is protected by the Federal Confidentiality of Alcohol and Drug Abuse Patient Records regulations: The Federal rules restrict any use of the information to criminally investigate or prosecute any alcohol or drug abuse patient.[facility] HospitalIn the event this information is protected by the Federal Confidentiality of Alcohol and Drug Abuse Patient Records regulations: The Federal rules restrict any use of the information to criminally investigate or prosecute any alcohol or drug abuse patient.[facility] HospitalIn the event this information is protected by the Federal Confidentiality of Alcohol and Drug Abuse Patient Records regulations: The Federal rules restrict any use of the information to criminally investigate or prosecute any alcohol or drug abuse patient.[facility] HospitalIn the event this information is protected by the Federal Confidentiality of Alcohol and Drug Abuse Patient Records regulations: The Federal rules restrict any use of the information to criminally investigate or prosecute any alcohol or drug abuse patient.[facility] HospitalIn the event this information is protected by the Federal Confidentiality of Alcohol and Drug Abuse Patient Records regulations: The Federal rules restrict any use of the information to criminally investigate or prosecute any alcohol or drug abuse patient.[facility] HospitalIn the event this information is protected by the Federal Confidentiality of Alcohol and Drug Abuse Patient Records regulations: The Federal rules restrict any use of the information to criminally investigate or prosecute any alcohol or drug abuse patient.[facility] HospitalIn the event this information is protected by the Federal Confidentiality of Alcohol and Drug Abuse Patient Records regulations: The Federal rules restrict any use of the information to criminally investigate or prosecute any alcohol or drug abuse patient.[facility] HospitalIn the event this information is protected by the Federal Confidentiality of Alcohol and Drug Abuse Patient Records regulations: The Federal rules restrict any use of the information to criminally investigate or prosecute any alcohol or drug abuse patient.[facility] HospitalIn the event this information is protected by the Federal Confidentiality of Alcohol and Drug Abuse Patient Records regulations: The Federal rules restrict any use of the information to criminally investigate or prosecute any alcohol or drug abuse patient.[facility] HospitalIn the event this information is protected by the Federal Confidentiality of Alcohol and Drug Abuse Patient Records regulations: The Federal rules restrict any use of the information to criminally investigate or prosecute any alcohol or drug abuse patient.[facility] HospitalIn the event this information is protected by the Federal Confidentiality of Alcohol and Drug Abuse Patient Records regulations: The Federal rules restrict any use of the information to criminally investigate or prosecute any alcohol or drug abuse patient.[facility] HospitalIn the event this information is protected by the Federal Confidentiality of Alcohol and Drug Abuse Patient Records regulations: The Federal rules restrict any use of the information to criminally investigate or prosecute any alcohol or drug abuse patient.[facility] HospitalIn the event this information is protected by the Federal Confidentiality of Alcohol and Drug Abuse Patient Records regulations: The Federal rules restrict any use of the information to criminally investigate or prosecute any alcohol or drug abuse patient.[facility]In the event this information is protected by the Federal Confidentiality of Alcohol and Drug Abuse Patient Records regulations: The Federal rules restrict any use of the information to criminally investigate or prosecute any alcohol or drug abuse patient.[facility]In the event this information is protected by the Federal Confidentiality of Alcohol and Drug Abuse Patient Records regulations: The Federal rules restrict any use of the information to criminally investigate or prosecute any alcohol or drug abuse patient.[facility]In the event this information is protected by the Federal Confidentiality of Alcohol and Drug Abuse Patient Records regulations: The Federal rules restrict any use of the information to criminally investigate or prosecute any alcohol or drug abuse patient.[facility]In the event this information is protected by the Federal Confidentiality of Alcohol and Drug Abuse Patient Records regulations: The Federal rules restrict any use of the information to criminally investigate or prosecute any alcohol or drug abuse patient.[facility]In the event this information is protected by the Federal Confidentiality of Alcohol and Drug Abuse Patient Records regulations: The Federal rules restrict any use of the information to criminally investigate or prosecute any alcohol or drug abuse patient.[facility]In the event this information is protected by the Federal Confidentiality of Alcohol and Drug Abuse Patient Records regulations: The Federal rules restrict any use of the information to criminally investigate or prosecute any alcohol or drug abuse patient.[facility]In the event this information is protected by the Federal Confidentiality of Alcohol and Drug Abuse Patient Records regulations: The Federal rules restrict any use of the information to criminally investigate or prosecute any alcohol or drug abuse patient.[facility]In the event this information is protected by the Federal Confidentiality of Alcohol and Drug Abuse Patient Records regulations: The Federal rules restrict any use of the information to criminally investigate or prosecute any alcohol or drug abuse patient.[facility]In the event this information is protected by the Federal Confidentiality of Alcohol and Drug Abuse Patient Records regulations: The Federal rules restrict any use of the information to criminally investigate or prosecute any alcohol or drug abuse patient.[facility]In the event this information is protected by the Federal Confidentiality of Alcohol and Drug Abuse Patient Records regulations: The Federal rules restrict any use of the information to criminally investigate or prosecute any alcohol or drug abuse patient.[facility]In the event this information is protected by the Federal Confidentiality of Alcohol and Drug Abuse Patient Records regulations: The Federal rules restrict any use of the information to criminally investigate or prosecute any alcohol or drug abuse patient.[facility]In the event this information is protected by the Federal Confidentiality of Alcohol and Drug Abuse Patient Records regulations: The Federal rules restrict any use of the information to criminally investigate or prosecute any alcohol or drug abuse patient.[facility]In the event this information is protected by the Federal Confidentiality of Alcohol and Drug Abuse Patient Records regulations: The Federal rules restrict any use of the information to criminally investigate or prosecute any alcohol or drug abuse patient.[facility]In the event this information is protected by the Federal Confidentiality of Alcohol and Drug Abuse Patient Records regulations: The Federal rules restrict any use of the information to criminally investigate or prosecute any alcohol or drug abuse patient.[facility] HospitalIn the event this information is protected by the Federal Confidentiality of Alcohol and Drug Abuse Patient Records regulations: The Federal rules restrict any use of the information to criminally investigate or prosecute any alcohol or drug abuse patient.[facility]In the event this information is protected by the Federal Confidentiality of Alcohol and Drug Abuse Patient Records regulations: The Federal rules restrict any use of the information to criminally investigate or prosecute any alcohol or drug abuse patient.[facility]In the event this information is protected by the Federal Confidentiality of Alcohol and Drug Abuse Patient Records regulations: The Federal rules restrict any use of the information to criminally investigate or prosecute any alcohol or drug abuse patient.[facility] HospitalIn the event this information is protected by the Federal Confidentiality of Alcohol and Drug Abuse Patient Records regulations: The Federal rules restrict any use of the information to criminally investigate or prosecute any alcohol or drug abuse patient.[facility] HospitalIn the event this information is protected by the Federal Confidentiality of Alcohol and Drug Abuse Patient Records regulations: The Federal rules restrict any use of the information to criminally investigate or prosecute any alcohol or drug abuse patient.[facility] HospitalIn the event this information is protected by the Federal Confidentiality of Alcohol and Drug Abuse Patient Records regulations: The Federal rules restrict any use of the information to criminally investigate or prosecute any alcohol or drug abuse patient.[facility]In the event this information is protected by the Federal Confidentiality of Alcohol and Drug Abuse Patient Records regulations: The Federal rules restrict any use of the information to criminally investigate or prosecute any alcohol or drug abuse patient.[facility] HospitalIn the event this information is protected by the Federal Confidentiality of Alcohol and Drug Abuse Patient Records regulations: The Federal rules restrict any use of the information to criminally investigate or prosecute any alcohol or drug abuse patient.[facility]In the event this information is protected by the Federal Confidentiality of Alcohol and Drug Abuse Patient Records regulations: The Federal rules restrict any use of the information to criminally investigate or prosecute any alcohol or drug abuse patient.[facility] HospitalIn the event this information is protected by the Federal Confidentiality of Alcohol and Drug Abuse Patient Records regulations: The Federal rules restrict any use of the information to criminally investigate or prosecute any alcohol or drug abuse patient.[facility] HospitalIn the event this information is protected by the Federal Confidentiality of Alcohol and Drug Abuse Patient Records regulations: The Federal rules restrict any use of the information to criminally investigate or prosecute any alcohol or drug abuse patient.[facility] HospitalIn the event this information is protected by the Federal Confidentiality of Alcohol and Drug Abuse Patient Records regulations: The Federal rules restrict any use of the information to criminally investigate or prosecute any alcohol or drug abuse patient.[facility] HospitalIn the event this information is protected by the Federal Confidentiality of Alcohol and Drug Abuse Patient Records regulations: The Federal rules restrict any use of the information to criminally investigate or prosecute any alcohol or drug abuse patient.[facility] HospitalIn the event this information is protected by the Federal Confidentiality of Alcohol and Drug Abuse Patient Records regulations: The Federal rules restrict any use of the information to criminally investigate or prosecute any alcohol or drug abuse patient.[facility] HospitalIn the event this information is protected by the Federal Confidentiality of Alcohol and Drug Abuse Patient Records regulations: The Federal rules restrict any use of the information to criminally investigate or prosecute any alcohol or drug abuse patient.[facility] HospitalIn the event this information is protected by the Federal Confidentiality of Alcohol and Drug Abuse Patient Records regulations: The Federal rules restrict any use of the information to criminally investigate or prosecute any alcohol or drug abuse patient.[facility] HospitalIn the event this information is protected by the Federal Confidentiality of Alcohol and Drug Abuse Patient Records regulations: The Federal rules restrict any use of the information to criminally investigate or prosecute any alcohol or drug abuse patient.[facility] HospitalIn the event this information is protected by the Federal Confidentiality of Alcohol and Drug Abuse Patient Records regulations: The Federal rules restrict any use of the information to criminally investigate or prosecute any alcohol or drug abuse patient.[facility] HospitalIn the event this information is protected by the Federal Confidentiality of Alcohol and Drug Abuse Patient Records regulations: The Federal rules restrict any use of the information to criminally investigate or prosecute any alcohol or drug abuse patient.[facility] HospitalIn the event this information is protected by the Federal Confidentiality of Alcohol and Drug Abuse Patient Records regulations: The Federal rules restrict any use of the information to criminally investigate or prosecute any alcohol or drug abuse patient.[facility] HospitalIn the event this information is protected by the Federal Confidentiality of Alcohol and Drug Abuse Patient Records regulations: The Federal rules restrict any use of the information to criminally investigate or prosecute any alcohol or drug abuse patient.[facility] HospitalIn the event this information is protected by the Federal Confidentiality of Alcohol and Drug Abuse Patient Records regulations: The Federal rules restrict any use of the information to criminally investigate or prosecute any alcohol or drug abuse patient.[facility] HospitalIn the event this information is protected by the Federal Confidentiality of Alcohol and Drug Abuse Patient Records regulations: The Federal rules restrict any use of the information to criminally investigate or prosecute any alcohol or drug abuse patient.[facility] HospitalIn the event this information is protected by the Federal Confidentiality of Alcohol and Drug Abuse Patient Records regulations: The Federal rules restrict any use of the information to criminally investigate or prosecute any alcohol or drug abuse patient.[facility] HospitalIn the event this information is protected by the Federal Confidentiality of Alcohol and Drug Abuse Patient Records regulations: The Federal rules restrict any use of the information to criminally investigate or prosecute any alcohol or drug abuse patient.[facility] HospitalIn the event this information is protected by the Federal Confidentiality of Alcohol and Drug Abuse Patient Records regulations: The Federal rules restrict any use of the information to criminally investigate or prosecute any alcohol or drug abuse patient.[facility] HospitalIn the event this information is protected by the Federal Confidentiality of Alcohol and Drug Abuse Patient Records regulations: The Federal rules restrict any use of the information to criminally investigate or prosecute any alcohol or drug abuse patient.[facility] HospitalIn the event this information is protected by the Federal Confidentiality of Alcohol and Drug Abuse Patient Records regulations: The Federal rules restrict any use of the information to criminally investigate or prosecute any alcohol or drug abuse patient.[facility] HospitalIn the event this information is protected by the Federal Confidentiality of Alcohol and Drug Abuse Patient Records regulations: The Federal rules restrict any use of the information to criminally investigate or prosecute any alcohol or drug abuse patient.[facility] HospitalIn the event this information is protected by the Federal Confidentiality of Alcohol and Drug Abuse Patient Records regulations: The Federal rules restrict any use of the information to criminally investigate or prosecute any alcohol or drug abuse patient.[facility] HospitalIn the event this information is protected by the Federal Confidentiality of Alcohol and Drug Abuse Patient Records regulations: The Federal rules restrict any use of the information to criminally investigate or prosecute any alcohol or drug abuse patient.[facility] HospitalIn the event this information is protected by the Federal Confidentiality of Alcohol and Drug Abuse Patient Records regulations: The Federal rules restrict any use of the information to criminally investigate or prosecute any alcohol or drug abuse patient.[facility] HospitalIn the event this information is protected by the Federal Confidentiality of Alcohol and Drug Abuse Patient Records regulations: The Federal rules restrict any use of the information to criminally investigate or prosecute any alcohol or drug abuse patient.[facility] HospitalIn the event this information is protected by the Federal Confidentiality of Alcohol and Drug Abuse Patient Records regulations: The Federal rules restrict any use of the information to criminally investigate or prosecute any alcohol or drug abuse patient.[facility] HospitalIn the event this information is protected by the Federal Confidentiality of Alcohol and Drug Abuse Patient Records regulations: The Federal rules restrict any use of the information to criminally investigate or prosecute any alcohol or drug abuse patient.[facility] HospitalIn the event this information is protected by the Federal Confidentiality of Alcohol and Drug Abuse Patient Records regulations: The Federal rules restrict any use of the information to criminally investigate or prosecute any alcohol or drug abuse patient.[facility] HospitalIn the event this information is protected by the Federal Confidentiality of Alcohol and Drug Abuse Patient Records regulations: The Federal rules restrict any use of the information to criminally investigate or prosecute any alcohol or drug abuse patient.[facility] HospitalIn the event this information is protected by the Federal Confidentiality of Alcohol and Drug Abuse Patient Records regulations: The Federal rules restrict any use of the information to criminally investigate or prosecute any alcohol or drug abuse patient.[facility] HospitalIn the event this information is protected by the Federal Confidentiality of Alcohol and Drug Abuse Patient Records regulations: The Federal rules restrict any use of the information to criminally investigate or prosecute any alcohol or drug abuse patient.[facility] HospitalIn the event this information is protected by the Federal Confidentiality of Alcohol and Drug Abuse Patient Records regulations: The Federal rules restrict any use of the information to criminally investigate or prosecute any alcohol or drug abuse patient.[facility] HospitalIn the event this information is protected by the Federal Confidentiality of Alcohol and Drug Abuse Patient Records regulations: The Federal rules restrict any use of the information to criminally investigate or prosecute any alcohol or drug abuse patient.[facility] HospitalIn the event this information is protected by the Federal Confidentiality of Alcohol and Drug Abuse Patient Records regulations: The Federal rules restrict any use of the information to criminally investigate or prosecute any alcohol or drug abuse patient.[facility] HospitalIn the event this information is protected by the Federal Confidentiality of Alcohol and Drug Abuse Patient Records regulations: The Federal rules restrict any use of the information to criminally investigate or prosecute any alcohol or drug abuse patient.[facility] HospitalIn the event this information is protected by the Federal Confidentiality of Alcohol and Drug Abuse Patient Records regulations: The Federal rules restrict any use of the information to criminally investigate or prosecute any alcohol or drug abuse patient.[facility] HospitalIn the event this information is protected by the Federal Confidentiality of Alcohol and Drug Abuse Patient Records regulations: The Federal rules restrict any use of the information to criminally investigate or prosecute any alcohol or drug abuse patient.[facility] HospitalIn the event this information is protected by the Federal Confidentiality of Alcohol and Drug Abuse Patient Records regulations: The Federal rules restrict any use of the information to criminally investigate or prosecute any alcohol or drug abuse patient.[facility] HospitalIn the event this information is protected by the Federal Confidentiality of Alcohol and Drug Abuse Patient Records regulations: The Federal rules restrict any use of the information to criminally investigate or prosecute any alcohol or drug abuse patient.[facility] HospitalIn the event this information is protected by the Federal Confidentiality of Alcohol and Drug Abuse Patient Records regulations: The Federal rules restrict any use of the information to criminally investigate or prosecute any alcohol or drug abuse patient.[facility] HospitalIn the event this information is protected by the Federal Confidentiality of Alcohol and Drug Abuse Patient Records regulations: The Federal rules restrict any use of the information to criminally investigate or prosecute any alcohol or drug abuse patient.[facility] HospitalIn the event this information is protected by the Federal Confidentiality of Alcohol and Drug Abuse Patient Records regulations: The Federal rules restrict any use of the information to criminally investigate or prosecute any alcohol or drug abuse patient.[facility] HospitalIn the event this information is protected by the Federal Confidentiality of Alcohol and Drug Abuse Patient Records regulations: The Federal rules restrict any use of the information to criminally investigate or prosecute any alcohol or drug abuse patient.[facility] HospitalIn the event this information is protected by the Federal Confidentiality of Alcohol and Drug Abuse Patient Records regulations: The Federal rules restrict any use of the information to criminally investigate or prosecute any alcohol or drug abuse patient.[facility] HospitalIn the event this information is protected by the Federal Confidentiality of Alcohol and Drug Abuse Patient Records regulations: The Federal rules restrict any use of the information to criminally investigate or prosecute any alcohol or drug abuse patient.[facility] HospitalIn the event this information is protected by the Federal Confidentiality of Alcohol and Drug Abuse Patient Records regulations: The Federal rules restrict any use of the information to criminally investigate or prosecute any alcohol or drug abuse patient.[facility] HospitalIn the event this information is protected by the Federal Confidentiality of Alcohol and Drug Abuse Patient Records regulations: The Federal rules restrict any use of the information to criminally investigate or prosecute any alcohol or drug abuse patient.[facility] HospitalIn the event this information is protected by the Federal Confidentiality of Alcohol and Drug Abuse Patient Records regulations: The Federal rules restrict any use of the information to criminally investigate or prosecute any alcohol or drug abuse patient.[facility] HospitalIn the event this information is protected by the Federal Confidentiality of Alcohol and Drug Abuse Patient Records regulations: The Federal rules restrict any use of the information to criminally investigate or prosecute any alcohol or drug abuse patient.[facility] HospitalIn the event this information is protected by the Federal Confidentiality of Alcohol and Drug Abuse Patient Records regulations: The Federal rules restrict any use of the information to criminally investigate or prosecute any alcohol or drug abuse patient.[facility] HospitalIn the event this information is protected by the Federal Confidentiality of Alcohol and Drug Abuse Patient Records regulations: The Federal rules restrict any use of the information to criminally investigate or prosecute any alcohol or drug abuse patient.[facility] HospitalIn the event this information is protected by the Federal Confidentiality of Alcohol and Drug Abuse Patient Records regulations: The Federal rules restrict any use of the information to criminally investigate or prosecute any alcohol or drug abuse patient.[facility] HospitalIn the event this information is protected by the Federal Confidentiality of Alcohol and Drug Abuse Patient Records regulations: The Federal rules restrict any use of the information to criminally investigate or prosecute any alcohol or drug abuse patient.[facility] HospitalIn the event this information is protected by the Federal Confidentiality of Alcohol and Drug Abuse Patient Records regulations: The Federal rules restrict any use of the information to criminally investigate or prosecute any alcohol or drug abuse patient.[facility] HospitalIn the event this information is protected by the Federal Confidentiality of Alcohol and Drug Abuse Patient Records regulations: The Federal rules restrict any use of the information to criminally investigate or prosecute any alcohol or drug abuse patient.[facility] HospitalIn the event this information is protected by the Federal Confidentiality of Alcohol and Drug Abuse Patient Records regulations: The Federal rules restrict any use of the information to criminally investigate or prosecute any alcohol or drug abuse patient.[facility] HospitalIn the event this information is protected by the Federal Confidentiality of Alcohol and Drug Abuse Patient Records regulations: The Federal rules restrict any use of the information to criminally investigate or prosecute any alcohol or drug abuse patient.[facility] HospitalIn the event this information is protected by the Federal Confidentiality of Alcohol and Drug Abuse Patient Records regulations: The Federal rules restrict any use of the information to criminally investigate or prosecute any alcohol or drug abuse patient.[facility] HospitalIn the event this information is protected by the Federal Confidentiality of Alcohol and Drug Abuse Patient Records regulations: The Federal rules restrict any use of the information to criminally investigate or prosecute any alcohol or drug abuse patient.[facility] HospitalIn the event this information is protected by the Federal Confidentiality of Alcohol and Drug Abuse Patient Records regulations: The Federal rules restrict any use of the information to criminally investigate or prosecute any alcohol or drug abuse patient.[facility] HospitalIn the event this information is protected by the Federal Confidentiality of Alcohol and Drug Abuse Patient Records regulations: The Federal rules restrict any use of the information to criminally investigate or prosecute any alcohol or drug abuse patient.[facility] HospitalIn the event this information is protected by the Federal Confidentiality of Alcohol and Drug Abuse Patient Records regulations: The Federal rules restrict any use of the information to criminally investigate or prosecute any alcohol or drug abuse patient.[facility] HospitalIn the event this information is protected by the Federal Confidentiality of Alcohol and Drug Abuse Patient Records regulations: The Federal rules restrict any use of the information to criminally investigate or prosecute any alcohol or drug abuse patient.[facility] HospitalIn the event this information is protected by the Federal Confidentiality of Alcohol and Drug Abuse Patient Records regulations: The Federal rules restrict any use of the information to criminally investigate or prosecute any alcohol or drug abuse patient.[facility] HospitalIn the event this information is protected by the Federal Confidentiality of Alcohol and Drug Abuse Patient Records regulations: The Federal rules restrict any use of the information to criminally investigate or prosecute any alcohol or drug abuse patient.[facility] HospitalIn the event this information is protected by the Federal Confidentiality of Alcohol and Drug Abuse Patient Records regulations: The Federal rules restrict any use of the information to criminally investigate or prosecute any alcohol or drug abuse patient.[facility] HospitalIn the event this information is protected by the Federal Confidentiality of Alcohol and Drug Abuse Patient Records regulations: The Federal rules restrict any use of the information to criminally investigate or prosecute any alcohol or drug abuse patient.[facility] HospitalIn the event this information is protected by the Federal Confidentiality of Alcohol and Drug Abuse Patient Records regulations: The Federal rules restrict any use of the information to criminally investigate or prosecute any alcohol or drug abuse patient.[facility] HospitalIn the event this information is protected by the Federal Confidentiality of Alcohol and Drug Abuse Patient Records regulations: The Federal rules restrict any use of the information to criminally investigate or prosecute any alcohol or drug abuse patient.[facility] HospitalIn the event this information is protected by the Federal Confidentiality of Alcohol and Drug Abuse Patient Records regulations: The Federal rules restrict any use of the information to criminally investigate or prosecute any alcohol or drug abuse patient.[facility] HospitalIn the event this information is protected by the Federal Confidentiality of Alcohol and Drug Abuse Patient Records regulations: The Federal rules restrict any use of the information to criminally investigate or prosecute any alcohol or drug abuse patient.[facility] HospitalIn the event this information is protected by the Federal Confidentiality of Alcohol and Drug Abuse Patient Records regulations: The Federal rules restrict any use of the information to criminally investigate or prosecute any alcohol or drug abuse patient.[facility] HospitalIn the event this information is protected by the Federal Confidentiality of Alcohol and Drug Abuse Patient Records regulations: The Federal rules restrict any use of the information to criminally investigate or prosecute any alcohol or drug abuse patient.[facility] HospitalIn the event this information is protected by the Federal Confidentiality of Alcohol and Drug Abuse Patient Records regulations: The Federal rules restrict any use of the information to criminally investigate or prosecute any alcohol or drug abuse patient.[facility] HospitalIn the event this information is protected by the Federal Confidentiality of Alcohol and Drug Abuse Patient Records regulations: The Federal rules restrict any use of the information to criminally investigate or prosecute any alcohol or drug abuse patient.[facility] HospitalIn the event this information is protected by the Federal Confidentiality of Alcohol and Drug Abuse Patient Records regulations: The Federal rules restrict any use of the information to criminally investigate or prosecute any alcohol or drug abuse patient.[facility] HospitalIn the event this information is protected by the Federal Confidentiality of Alcohol and Drug Abuse Patient Records regulations: The Federal rules restrict any use of the information to criminally investigate or prosecute any alcohol or drug abuse patient.[facility] HospitalIn the event this information is protected by the Federal Confidentiality of Alcohol and Drug Abuse Patient Records regulations: The Federal rules restrict any use of the information to criminally investigate or prosecute any alcohol or drug abuse patient.[facility] HospitalIn the event this information is protected by the Federal Confidentiality of Alcohol and Drug Abuse Patient Records regulations: The Federal rules restrict any use of the information to criminally investigate or prosecute any alcohol or drug abuse patient.[facility] HospitalIn the event this information is protected by the Federal Confidentiality of Alcohol and Drug Abuse Patient Records regulations: The Federal rules restrict any use of the information to criminally investigate or prosecute any alcohol or drug abuse patient.[facility] HospitalIn the event this information is protected by the Federal Confidentiality of Alcohol and Drug Abuse Patient Records regulations: The Federal rules restrict any use of the information to criminally investigate or prosecute any alcohol or drug abuse patient.[facility] HospitalIn the event this information is protected by the Federal Confidentiality of Alcohol and Drug Abuse Patient Records regulations: The Federal rules restrict any use of the information to criminally investigate or prosecute any alcohol or drug abuse patient.[facility] HospitalIn the event this information is protected by the Federal Confidentiality of Alcohol and Drug Abuse Patient Records regulations: The Federal rules restrict any use of the information to criminally investigate or prosecute any alcohol or drug abuse patient.[facility] HospitalIn the event this information is protected by the Federal Confidentiality of Alcohol and Drug Abuse Patient Records regulations: The Federal rules restrict any use of the information to criminally investigate or prosecute any alcohol or drug abuse patient.[facility] HospitalIn the event this information is protected by the Federal Confidentiality of Alcohol and Drug Abuse Patient Records regulations: The Federal rules restrict any use of the information to criminally investigate or prosecute any alcohol or drug abuse patient.[facility] HospitalIn the event this information is protected by the Federal Confidentiality of Alcohol and Drug Abuse Patient Records regulations: The Federal rules restrict any use of the information to criminally investigate or prosecute any alcohol or drug abuse patient.[facility] HospitalIn the event this information is protected by the Federal Confidentiality of Alcohol and Drug Abuse Patient Records regulations: The Federal rules restrict any use of the information to criminally investigate or prosecute any alcohol or drug abuse patient.[facility] HospitalIn the event this information is protected by the Federal Confidentiality of Alcohol and Drug Abuse Patient Records regulations: The Federal rules restrict any use of the information to criminally investigate or prosecute any alcohol or drug abuse patient.[facility] HospitalIn the event this information is protected by the Federal Confidentiality of Alcohol and Drug Abuse Patient Records regulations: The Federal rules restrict any use of the information to criminally investigate or prosecute any alcohol or drug abuse patient.[facility] HospitalIn the event this information is protected by the Federal Confidentiality of Alcohol and Drug Abuse Patient Records regulations: The Federal rules restrict any use of the information to criminally investigate or prosecute any alcohol or drug abuse patient.[facility] HospitalIn the event this information is protected by the Federal Confidentiality of Alcohol and Drug Abuse Patient Records regulations: The Federal rules restrict any use of the information to criminally investigate or prosecute any alcohol or drug abuse patient.[facility] HospitalIn the event this information is protected by the Federal Confidentiality of Alcohol and Drug Abuse Patient Records regulations: The Federal rules restrict any use of the information to criminally investigate or prosecute any alcohol or drug abuse patient.[facility] HospitalIn the event this information is protected by the Federal Confidentiality of Alcohol and Drug Abuse Patient Records regulations: The Federal rules restrict any use of the information to criminally investigate or prosecute any alcohol or drug abuse patient.[facility] HospitalIn the event this information is protected by the Federal Confidentiality of Alcohol and Drug Abuse Patient Records regulations: The Federal rules restrict any use of the information to criminally investigate or prosecute any alcohol or drug abuse patient.[facility] HospitalIn the event this information is protected by the Federal Confidentiality of Alcohol and Drug Abuse Patient Records regulations: The Federal rules restrict any use of the information to criminally investigate or prosecute any alcohol or drug abuse patient.[facility] HospitalIn the event this information is protected by the Federal Confidentiality of Alcohol and Drug Abuse Patient Records regulations: The Federal rules restrict any use of the information to criminally investigate or prosecute any alcohol or drug abuse patient.[facility] HospitalIn the event this information is protected by the Federal Confidentiality of Alcohol and Drug Abuse Patient Records regulations: The Federal rules restrict any use of the information to criminally investigate or prosecute any alcohol or drug abuse patient.[facility] HospitalIn the event this information is protected by the Federal Confidentiality of Alcohol and Drug Abuse Patient Records regulations: The Federal rules restrict any use of the information to criminally investigate or prosecute any alcohol or drug abuse patient.[facility] HospitalIn the event this information is protected by the Federal Confidentiality of Alcohol and Drug Abuse Patient Records regulations: The Federal rules restrict any use of the information to criminally investigate or prosecute any alcohol or drug abuse patient.[facility] HospitalIn the event this information is protected by the Federal Confidentiality of Alcohol and Drug Abuse Patient Records regulations: The Federal rules restrict any use of the information to criminally investigate or prosecute any alcohol or drug abuse patient.[facility] HospitalIn the event this information is protected by the Federal Confidentiality of Alcohol and Drug Abuse Patient Records regulations: The Federal rules restrict any use of the information to criminally investigate or prosecute any alcohol or drug abuse patient.[facility] HospitalIn the event this information is protected by the Federal Confidentiality of Alcohol and Drug Abuse Patient Records regulations: The Federal rules restrict any use of the information to criminally investigate or prosecute any alcohol or drug abuse patient.[facility] HospitalIn the event this information is protected by the Federal Confidentiality of Alcohol and Drug Abuse Patient Records regulations: The Federal rules restrict any use of the information to criminally investigate or prosecute any alcohol or drug abuse patient.[facility] HospitalIn the event this information is protected by the Federal Confidentiality of Alcohol and Drug Abuse Patient Records regulations: The Federal rules restrict any use of the information to criminally investigate or prosecute any alcohol or drug abuse patient.[facility] HospitalIn the event this information is protected by the Federal Confidentiality of Alcohol and Drug Abuse Patient Records regulations: The Federal rules restrict any use of the information to criminally investigate or prosecute any alcohol or drug abuse patient.[facility] HospitalIn the event this information is protected by the Federal Confidentiality of Alcohol and Drug Abuse Patient Records regulations: The Federal rules restrict any use of the information to criminally investigate or prosecute any alcohol or drug abuse patient.[facility] HospitalIn the event this information is protected by the Federal Confidentiality of Alcohol and Drug Abuse Patient Records regulations: The Federal rules restrict any use of the information to criminally investigate or prosecute any alcohol or drug abuse patient.[facility] HospitalIn the event this information is protected by the Federal Confidentiality of Alcohol and Drug Abuse Patient Records regulations: The Federal rules restrict any use of the information to criminally investigate or prosecute any alcohol or drug abuse patient.[facility] HospitalIn the event this information is protected by the Federal Confidentiality of Alcohol and Drug Abuse Patient Records regulations: The Federal rules restrict any use of the information to criminally investigate or prosecute any alcohol or drug abuse patient.[facility] HospitalIn the event this information is protected by the Federal Confidentiality of Alcohol and Drug Abuse Patient Records regulations: The Federal rules restrict any use of the information to criminally investigate or prosecute any alcohol or drug abuse patient.[facility] HospitalIn the event this information is protected by the Federal Confidentiality of Alcohol and Drug Abuse Patient Records regulations: The Federal rules restrict any use of the information to criminally investigate or prosecute any alcohol or drug abuse patient.[facility] HospitalIn the event this information is protected by the Federal Confidentiality of Alcohol and Drug Abuse Patient Records regulations: The Federal rules restrict any use of the information to criminally investigate or prosecute any alcohol or drug abuse patient.[facility] HospitalIn the event this information is protected by the Federal Confidentiality of Alcohol and Drug Abuse Patient Records regulations: The Federal rules restrict any use of the information to criminally investigate or prosecute any alcohol or drug abuse patient.[facility] HospitalIn the event this information is protected by the Federal Confidentiality of Alcohol and Drug Abuse Patient Records regulations: The Federal rules restrict any use of the information to criminally investigate or prosecute any alcohol or drug abuse patient.[facility] HospitalIn the event this information is protected by the Federal Confidentiality of Alcohol and Drug Abuse Patient Records regulations: The Federal rules restrict any use of the information to criminally investigate or prosecute any alcohol or drug abuse patient.[facility] HospitalIn the event this information is protected by the Federal Confidentiality of Alcohol and Drug Abuse Patient Records regulations: The Federal rules restrict any use of the information to criminally investigate or prosecute any alcohol or drug abuse patient.[facility] HospitalIn the event this information is protected by the Federal Confidentiality of Alcohol and Drug Abuse Patient Records regulations: The Federal rules restrict any use of the information to criminally investigate or prosecute any alcohol or drug abuse patient.[facility] HospitalIn the event this information is protected by the Federal Confidentiality of Alcohol and Drug Abuse Patient Records regulations: The Federal rules restrict any use of the information to criminally investigate or prosecute any alcohol or drug abuse patient.[facility] HospitalIn the event this information is protected by the Federal Confidentiality of Alcohol and Drug Abuse Patient Records regulations: The Federal rules restrict any use of the information to criminally investigate or prosecute any alcohol or drug abuse patient.[facility] HospitalIn the event this information is protected by the Federal Confidentiality of Alcohol and Drug Abuse Patient Records regulations: The Federal rules restrict any use of the information to criminally investigate or prosecute any alcohol or drug abuse patient.[facility] HospitalIn the event this information is protected by the Federal Confidentiality of Alcohol and Drug Abuse Patient Records regulations: The Federal rules restrict any use of the information to criminally investigate or prosecute any alcohol or drug abuse patient.[facility] HospitalIn the event this information is protected by the Federal Confidentiality of Alcohol and Drug Abuse Patient Records regulations: The Federal rules restrict any use of the information to criminally investigate or prosecute any alcohol or drug abuse patient.[facility] HospitalIn the event this information is protected by the Federal Confidentiality of Alcohol and Drug Abuse Patient Records regulations: The Federal rules restrict any use of the information to criminally investigate or prosecute any alcohol or drug abuse patient.[facility] HospitalIn the event this information is protected by the Federal Confidentiality of Alcohol and Drug Abuse Patient Records regulations: The Federal rules restrict any use of the information to criminally investigate or prosecute any alcohol or drug abuse patient.[facility] HospitalIn the event this information is protected by the Federal Confidentiality of Alcohol and Drug Abuse Patient Records regulations: The Federal rules restrict any use of the information to criminally investigate or prosecute any alcohol or drug abuse patient.[facility] HospitalIn the event this information is protected by the Federal Confidentiality of Alcohol and Drug Abuse Patient Records regulations: The Federal rules restrict any use of the information to criminally investigate or prosecute any alcohol or drug abuse patient.[facility] HospitalIn the event this information is protected by the Federal Confidentiality of Alcohol and Drug Abuse Patient Records regulations: The Federal rules restrict any use of the information to criminally investigate or prosecute any alcohol or drug abuse patient.[facility] Reason for Visit (unrecogniz ed section and content) Reason Onset Date Comments Community Monitoring Outreach 12/27/2021 CD M Telephonic Reason Comments Refill Request Reason Comments COPD follow up Reason Onset Date Comments [facility] [place]/24/2022 Te lephonic Follow Up Reason [...] HIGH MDM 60-74 MINUTES Leslye Winter PA-C [address] [place] [address] Referral ID Status Reason Start Date Expiration Date Visits Requested Visits Authorized [id number] Pending Review PCP Requested Referral 03/22/2022 03/22/2023 1 1 Reason Comments OT needed? Reason Comments Post Op Reason Comments Results Reason Onset Date Comments Refill Request 04/25/2022 Reason Comments Established Patient Reason Onset Date Comments Community Monitoring Outreach 05/11/2022 CD M Telephonic Follow Up Reason Comments Follow Up Post Op Established Patient Reason Onset Date Comments Community [facility] Outreach 05/31/2022 CD M Telephonic Reason Comments [...] Refill Request 11/08/2022 Reason Onset Date Comments [facility] 11/24/2022 Telephonic outre ach Reason Onset Date Comments [facility] 11/25/2022 Telephonic outre ach Reason Onset Date Comments Population Health Navigation Outreach 11/29/2022 [employer] Care Gaps Reason Comments Appointment Reason Onset Date Comments [facility] 12/21/2022 Telephonic outre ach Reason Comments Follow Up Reason Comments ER F/U Reason Onset Date Comments [facility] 01/17/2023 Telephonic outre ach Reason [...] Community Monitoring Outreach 04/03/2023 Te lephonic Outreach CD Home Monitoring Reason Comments Results Reason Onset [...] US Specialty Diagnoses / Procedures Referred By Contac t Referred To Contact US IMAGING Diagnoses Ex-smoker Encounter for abdominal aortic aneurysm (AAA) screening Procedures US SCREENING FOR AAA (2017) US ABDOMINAL AORTA REAL TIME SCREEN STUDY AAA Ovidio Vincent MD [address] [place] [address] [place] [address] Referral ID Status Reason Start Date Expiration Date V isits Requested Visits Authorized [id number] Closed Auto-Generate d Referral 12/16/2022 01/15/2024 1 1 Reason Onset Date Comments Community Monitoring Outreach 07/25/2023 Te lephonic Outreach CDM Home Monitoring Reason Onset Date Comments Community Monitoring Outreach 07/26/2023 2n d attempt Telephonic Outreach CDM Home Monitoring Reason Onset Date Comments Refill Request 07/26/[address] Specialty Diagnoses / Procedures Referred By Contac t Referred To Contact CT IMAGING Diagnoses Lung nodules Procedures CT CHEST WO IVCON DIAGNOSTIC COMPUTED TOMOGRAPHY THORAX W/O Loretta Nova, SPENCER [address] [place] [address] [place] [address] Referral ID Status Reason Start Date Expiration Date V isits Requested Visits Authorized [id number] Closed Auto-Generate d Referral 07/12/2023 08/10/2024 1 [...] STEM W/O CONTRAST MATERIAL Ovidio Vincent MD [address] [place] [address] [place] [address] Referral ID Status Reason Start Date Expiration Date V isits Requested Visits Authorized [id number] Closed Auto-Generate d Referral 04/16/2024 05/16/2025 1 [...] callus Procedures CONSULT TO PODIATRY OFFICE/OUTPATIENT NEW HIGH MDM 60 MINUTES Ovidio Vincent MD [address] [place] [address] Referral ID Status Reason Start Date Expiration Date V isits Requested Visits Authorized [id number] Closed PCP Requested Referral 05/30/2024 05/30/2025 1 1 Reason Onset Date Comments Refill Request 07/11/2024 Reason Onset Date Comments Community Monitoring Outreach 07/11/2024 3r d attempt this sequence Telephonic Outreach CDM Home Monitoring Reason Onset Date Comments Refill Request 09/03/2024 Reason Onset Date Comments Population Health Navigation Outreach 09/30/2024 [employer] [facility] PCSA Reason Onset Date Comments Refill Request 10/02/2024 Reason Onset Date Comments Refill Request 11/19/2024 Reason Onset Date Comments Refill Request 11/30/2024 Reason Comments Outside Ortho Reason Onset Date Comments Refill Request 12/11/2024 Reason Comments Follow Up Diabetic Foot Care Nail Care Reason Onset Date Comments Refill Request 01/16/2025 Reason Comments Patient Update Medical Clearance fr [facility] ortho Reason Comments Outside [id number] Ordered Care Teams (unrecognized sec tion and content) Front Office Specialist Relationship Specialty Start Date End Date Ovidio Vincent MD [address] [place] [address] PCP - General Family Practice 03/16/21 Becky Leija MD, [address] [place], [place] [id number] Physician Radiation Oncology 11/24/17 Lola Apple, ALICIA Specialty Plastics Heat Welder Oncology 12/08/17 Tato Castro [address] [place] [address] Pain Management Anesthesiology 01/30/18 Santos Woods MD [address] [place] [address] Physician Blood and Marrow Transplant 05/04/18 Fidel De La Garza MD [address] [place] [address] Consulting Hematology/Oncology 05/15/18 Halima Cohen ([place]), [place] [address] [place] [address] Specialty Plastics Heat Welder HOSPICE & PALLIATIVE MEDICINE 05/15/18 Nargis Ortega, mail censorChild Psychometrist 05/27/21 Front Office Specialist Relationship Specialty Start Date End Date Ovidio Vincent MD [address] [place], [place] [address] PCP - General Family Practice 03/16/21 Becky Leija MD, [address] [place] [address] Physician Radiation Oncology 11/24/17 Lola Apple RN Specialty Plastics Heat Welder Oncology 12/08/17 Tato Castro [address] [place] [id number] Pain Management Anesthesiology 01/30/18 Santos Woods MD [address] [address] Physician Blood and Marrow Transplant 05/04/18 Fidel De La Garza MD [address] [place] [address] Consulting Hematology/Oncology 05/15/18 Halima [place] ([place]), [place] [address] [place] [address] Specialty Plastics Heat Welder HOSPICE & PALLIATIVE MEDICINE 05/15/18 Nargis Ortega, mail censorChild Psychometrist 05/27/21 Front Office Specialist Relationship Specialty Start Date End Date Ovidio Vincent MD [address] [place] [address] PCP - General Family Practice 03/16/21 Becky Leija MD, [address] [place] [address] Physician Radiation Oncology 11/24/17 Lola Apple, RN Specialty Plastics Heat Welder Oncology 12/08/17 [facility] [place] [place] [address] [place], [place] [address] Pain Management Anesthesiology 01/30/18 Santos Woods MD [address] [address] [id number] Physician Blood and Marrow Transplant 05/04/18 Fidel De La Garza MD [address] [place] [address] Consulting Hematology/Oncology 05/15/18 Halima Cohen (Rn), [place] [address] [place], [place] 8021206 Specialty Plastics Heat Welder HOSPICE & PALLIATIVE MEDICINE 05/15/18 Nargis Ortega, RN [address] [place], [place] [phone] Child Psychometrist 05/27/21 Front Office Specialist Relationship Specialty Start Date End Date Ovidio Vincent MD [address] [place] [address] PCP - General Family Practice 03/16/21 Becky Leija MD, 721 [place] [address] Physician Radiation Oncology 11/24/17 Lola Apple, RN [employer]ty Plastics Heat Welder Oncology 12/08/17 Tato Castro [address] [place], [place] [id number]- Pain Management Anesthesiology 01/30/18 Santos Woods MD [address] [address] Physician Blood and Marrow Transplant 05/04/18 Fidel De La Garza MD 48[address] [place], [place] [phone] Consulting Hematology/Oncology 05/15/18 Halima Cohen (Rn), [place] [address] [place], [place] [phone] Specialty Plastics Heat Welder HOSPICE & PALLIATIVE MEDICINE 05/15/18 Nargis Ortega, ALICIA [address] [place], [place] [phone] Child Psychometrist 05/27/21 Front Office Specialist Relationship Specialty Start Date End Date Ovidio Vincent MD [address] [place], [place] [id number] PCP - General Family Practice 03/16/21 Becky Leija MD, [address] [place], [place] [id number] Physician Radiation Oncology 11/24/17 Lola Apple RN [employer]ty Plastics Heat Welder Oncology 12/08/17 Tato Castro [address] [place], [place] [phone] Pain Management Anesthesiology 01/30/18 Santos Woods MD 3821 [facility] [address] [place] [address] Physician Blood and Marrow Transplant 05/04/18 Fidel De La Garza MD [address] [place], [place] 4328395 Consulting Hematology/Oncology 05/15/18 Halima Cohen ([place]n), [place] [address] [place], [place] 1503306 Specialty Plastics Heat Welder HOSPICE & PALLIATIVE MEDICINE 05/15/18 Nargis Ortega RN [address] [place] [address] Child Psychometrist 05/27/21 Front Office Specialist Relationship Specialty Start Date End Date Ovidio Vincent MD [address] [place] [address] PCP - General Family Practice 03/16/21 Becky Leija MD, [address] [place] [address] Physician Radiation Oncology 11/24/17 Lola Apple, RN Specialty Plastics Heat Welder Oncology 12/08/17 Tato Castro [address] [place], [place] 633481 Pain Management Anesthesiology 01/30/18 Santos Woods MD [address] 409405 [place], [place] 6510295 Physician Blood and Marrow Transplant 05/04/18 Fidel De La Garza MD [address] [place], [place] 6332595 Consulting Hematology/Oncology 05/15/18 Halima [place] ([place]), [place] [address] [place], [place] 8635006 Specialty Plastics Heat Welder HOSPICE & PALLIATIVE MEDICINE 05/15/18 Nargis Ortega, RN [address] [place], [place] [phone] Child Psychometrist 05/27/21 Front Office Specialist Relationship Specialty Start Date End Date Ovidio Vincent MD [address] [place] [address] PCP - General Family Practice 03/16/21 Becky Leija MD, [address] [place] [address] Physician Radiation Oncology 11/24/17 Lola Apple RN [employer]ty [employer]astics Heat Welder Oncology 12/08/17 Tato Castro [address] [place], [place] [phone] Pain Management Anesthesiology 01/30/18 Santos Woods MD [address] 4694395 Physician Blood and Marrow Transplant 05/04/18 Fidel De La Garza MD [address] [place] [address] Consulting Hematology/Oncology 05/15/18 Halima [place] ([place]), [place] [address] [place], [place] 1258306 Specialty Plastics Heat Welder HOSPICE & PALLIATIVE MEDICINE 05/15/18 Nargis Ortega RN [address] [place] [address] Child Psychometrist 05/27/21 Front Office Specialist Relationship Specialty Start Date End Date Ovidio Vincent MD [address] [place], [place] [id number] PCP - General Family Practice 03/16/21 Becky Leija MD, [address] [place], [place] [phone] Physician Radiation Oncology 11/24/17 Lola Apple RN Specialty Plastics Heat Welder Oncology 12/08/17 Tato Castro [address] [place] [address] [id number] Pain Management Anesthesiology 01/30/18 Santos Woods MD [facility] [facility] [address] [address] Physician Blood and Marrow Transplant 05/04/18 Fidel De La Garza MD 0[address] [place] [address] Consulting Hematology/Oncology 05/15/18 Halima Cohen (Rn), RN [address] [place], [place] 9073306 Specialty Plastics Heat Welder HOSPICE & PALLIATIVE MEDICINE 05/15/18 Nargis Ortega, RN [address] [place] [address] Child Psychometrist 05/27/21 Front Office Specialist Relationship Specialty Start Date End Date Ovidio Vincent MD [address] [place] [address] PCP - General Family Practice 03/16/21 Becky Leija MD, [address] [place] [address] Physician Radiation Oncology 11/24/17 Lola Apple RN Specialty Plastics Heat Welder Oncology 12/08/17 Tato Castro [address] [place], [place] 452431 Pain Management Anesthesiology 01/30/18 Santos Woods MD [address] [address] Physician Blood and Marrow Transplant 05/04/18 Fidel De La Garza MD 3030 [place] [address] Consulting Hematology/Oncology 05/15/18 Halima [place] ([place]), [place] [address] [place] [address] Specialty Plastics Heat Welder HOSPICE & PALLIATIVE MEDICINE 05/15/18 Nargis Ortega, RN [address] [place] [address] Child Psychometrist 05/27/21 Front Office Specialist Relationship Specialty Start Date End Date Ovidio Vincent MD [address] [place] [address] PCP - General Family Practice 03/16/21 Becky Leija MD, [address] [place] [address] Physician Radiation Oncology 11/24/17 Lola Apple RN Specialty Plastics Heat Welder Oncology 12/08/17 Tato Castro [address] [place], [place] [phone] Pain Management Anesthesiology 01/30/18 Santos Woods MD [address] [address] Physician Blood and Marrow Transplant 05/04/18 Fidel De La Garza MD [address] [place] [address] Consulting Hematology/Oncology 05/15/18 Halima [place] ([place]), [place] [address] [place] [address] Specialty Plastics Heat Welder HOSPICE & PALLIATIVE MEDICINE 05/15/18 Nargis Ortega RN [address] [place], [place] [phone] Child Psychometrist 05/27/21 Front Office Specialist Relationship Specialty Start Date End Date Ovidio Vincent MD [address] [place], [place] 085721 PCP - General Family Practice 03/16/21 Becky Leija MD, MD [address] [place] [address] Physician Radiation Oncology 11/24/17 Lola Apple RN Specialty Plastics Heat Welder Oncology 12/08/17 Tato Castro [address] [place], [place] [phone] Pain Management Anesthesiology 01/30/18 Santos Woods MD [address] [address] Physician Blood and Marrow Transplant 05/04/18 Fidel De La Garza MD 6168 [place] [address] Consulting Hematology/Oncology 05/15/18 Halima [place] ([place]n), [place] [address] [place] [address] Specialty Plastics Heat Welder HOSPICE & PALLIATIVE MEDICINE 05/15/18 Nargis Ortega RN [address] [place] [address] Child Psychometrist 05/27/21 Front Office Specialist Relationship Specialty Start Date End Date Ovidio Vincent MD [address] [place], [place] 615341 PCP - General Family Practice 03/16/21 Becky Leija MD, MD [address] [place], [place] 991301 Physician Radiation Oncology 11/24/17 Lola Apple RN Specialty Plastics Heat Welder Oncology 12/08/17 Tato Castro [address] [place], [place] 900461 Pain Management Anesthesiology 01/30/18 Santos Woods MD [address] [address] Physician Blood and Marrow Transplant 05/04/18 Fidel De La Garza MD 3850 [place] [address] Consulting Hematology/Oncology 05/15/18 Halima [place] ([place]n), [place] [address] [place], [place] 6771506 Specialty Plastics Heat Welder HOSPICE & PALLIATIVE MEDICINE 05/15/18 Nargis Ortega, ALICIA [address] [place] [address] Child Psychometrist 05/27/21 Front Office Specialist Relationship Specialty Start Date End Date Ovidio Vincent MD [address] [place], [place] [id number] PCP - General Family Practice 03/16/21 Becky Leija MD, [address] [place] [address] Physician Radiation Oncology 11/24/17 Lola Apple, RN Specialty Plastics Heat Welder Oncology 12/08/17 [facility] [place] [address] [place], [place] 835631 Pain Management Anesthesiology 01/30/18 Santos Woods MD [address] 9287095 Physician Blood and Marrow Transplant 05/04/18 Fidel De La Garza MD 0526 [place], [place] 1565695 Consulting Hematology/Oncology 05/15/18 Halima [place] ([place]n), [place] [address] [place], [place] 9233506 Specialty Plastics Heat Welder HOSPICE & PALLIATIVE MEDICINE 05/15/18 Nargis Ortega, RN [address] [place], [place] 3336831 Child Psychometrist 05/27/21 Front Office Specialist Relationship Specialty Start Date End Date Ovidio Vincent MD [address] [place] [address] PCP - General Family Practice 03/16/21 Becky Leija MD, [address] [place] [address] Physician Radiation Oncology 11/24/17 Lola Apple, RN Specialty Plastics Heat Welder Oncology 12/08/17 Tato Castro [place] [address] [place] [address] Pain Management Anesthesiology 01/30/18 Santos Woods MD [address] [address] Physician Blood and Marrow Transplant 05/04/18 Fidel De La Garza MD 9134 [place], [place] 4745695 Consulting Hematology/Oncology 05/15/18 Halima [place] ([place]n), [place] [address] [place], [place] 2002206 Specialty Plastics Heat Welder HOSPICE & PALLIATIVE MEDICINE 05/15/18 Nargis Ortega RN [address] [place], [place] [phone] Child Psychometrist 05/27/21 Front Office Specialist Relationship Specialty Start Date End Date Ovidio Vincent MD [address] [place], [place] [id number] PCP - General Family Practice 03/16/21 Becky Leija MD, [address] [place], [place] 89630691 Physician Radiation Oncology 11/24/17 Lola Apple RN Specialty Plastics Heat Welder Oncology 12/08/17 Tato Castro [address] [place], [place] [phone] Pain Management Anesthesiology 01/30/18 Santos Woods MD [address] [address] Physician Blood and Marrow Transplant 05/04/18 Fidel De La Garza MD 9472 [place] [address] Consulting Hematology/Oncology 05/15/18 Halima Cohen ([place]n), [place] [address] [place], [place] 6307006 Specialty Plastics Heat Welder HOSPICE & PALLIATIVE MEDICINE 05/15/18 Nargis Ortega RN [address] [place] [address] Child Psychometrist 05/27/21 Front Office Specialist Relationship Specialty Start Date End Date Ovidio Vincent MD [address] [place], [place] 711971 PCP - General Family Practice 03/16/21 Becky Leija MD, [address] [place], [place] 568351 Physician Radiation Oncology 11/24/17 Lola Apple RN Specialty Plastics Heat Welder Oncology 12/08/17 [facility] [address] [place], [place] 862781 Pain Management Anesthesiology 01/30/18 Santos Woods MD [address] [address] Physician Blood and Marrow Transplant 05/04/18 Fidel De La Garza MD 5635 [place], [place] 2422595 Consulting Hematology/Oncology 05/15/18 Halima Cohen (Rn), [place] [address] [place] [address] Specialty Plastics Heat Welder HOSPICE & PALLIATIVE MEDICINE 05/15/18 Nargis Ortega, RN [address] [place] [address] Child Psychometrist 05/27/21 Front Office Specialist Relationship Specialty Start Date End Date Ovidio Vincent MD [address] [place], [place] 47730691 PCP - General Family Practice 03/16/21 Becky Leija MD, MD [address] [place] [address] Physician Radiation Oncology 11/24/17 Lola Apple RN Specialty Plastics Heat Welder Oncology 12/08/17 Tato Castro [address] [place], [place] 445641 Pain Management Anesthesiology 01/30/18 Santos Woods MD [address] 1669995 Physician Blood and Marrow Transplant 05/04/18 Fidel De La Garza MD [address] [place] [address] Consulting Hematology/Oncology 05/15/18 Halima Cohen ([place]n), [place] [address] [place] [address] Specialty Plastics Heat Welder HOSPICE & PALLIATIVE MEDICINE 05/15/18 Nargis Ortega RN [address] [place] [address] Child Psychometrist 05/27/21 Front Office Specialist Relationship Specialty Start Date End Date Ovidio Vincent MD [address] [place], [place] [id number] PCP - General Family Practice 03/16/21 Becky Leija MD, MD [address] [place] [address] Physician Radiation Oncology 11/24/17 Lola Apple RN Specialty Plastics Heat Welder Oncology 12/08/17 Tato Castro [address] [place], [place] [phone] Pain Management Anesthesiology 01/30/18 Santos Woods MD [address] [address] Physician Blood and Marrow Transplant 05/04/18 Fidel De La Garza MD [address] [place] [address] Consulting Hematology/Oncology 05/15/18 Halima [place] (Rn), [place] [address] [place] [address] Specialty Plastics Heat Welder HOSPICE & PALLIATIVE MEDICINE 05/15/18 Nargis Ortega, RN [address] [place], [place] [phone] Child Psychometrist 05/27/21 Front Office Specialist Relationship Specialty Start Date End Date Ovidio Vincent MD [address] [place], [place] 489081 PCP - General Family Practice 03/16/21 Becky Leija MD, [facility] [place], [place] 740671 Physician Radiation Oncology 11/24/17 Lola Apple RN Specialty Plastics Heat Welder Oncology 12/08/17 Tato Castro [address] [place] [address] [phone] Pain Management Anesthesiology 01/30/18 Santos Woods MD [address] [address] Physician Blood and Marrow Transplant 05/04/18 Fidel De La Garza MD [address] [place], [place] 5793595 Consulting Hematology/Oncology 05/15/18 Halima [place] ([place]n), [place] [address] [place] [address] Specialty Plastics Heat Welder HOSPICE & PALLIATIVE MEDICINE 05/15/18 Nargis Ortega, ALICIA [address] [place] [address] Child Psychometrist 05/27/21 Front Office Specialist Relationship Specialty Start Date End Date Ovidio Vincent MD [address] [place] [address] PCP - General Family Practice 03/16/21 Becky Leija MD, MD [address] [place] [address] Physician Radiation Oncology 11/24/17 Lola Apple, RN Specialty Plastics Heat Welder Oncology 12/08/17 04/25/22 Tato Castro [address] [place] [address] 820071 Pain Management Anesthesiology 01/30/18 Santos Woods MD 9500 [facility] [address] [place], [place] 2143195 Physician Blood and Marrow Transplant 05/04/18 Fidel De La Garza MD 0030 [place], [place] 5491795 Consulting Hematology/Oncology 05/15/18 Halima Cohen (Rn), [place] [address] [place], [place] 7471506 Specialty Plastics Heat Welder HOSPICE & PALLIATIVE MEDICINE 05/15/18 Nargis Ortega, RN [address] [place], [place] 8150031 Child Psychometrist 05/27/21 Ela Alvarez MD [address] [place] [address] Hematology/Oncology 04/26/22 Nancie Low, ALICIA [address] [place] [address] Specialty Plastics Heat Welder Hematology/Oncology 04/26/22 Front Office Specialist Relationship Specialty Start Date End Date Ovidio Vincent MD [address] [place] [address] PCP - General Family Practice 03/16/21 Becky Leija MD, [address] [place] [address] Physician Radiation Oncology 11/24/17 Alin Castroman De La Garza [address] [place], [place] 658941 Pain Management Anesthesiology 01/30/18 Santos Woods MD [address] 8483095 Physician Blood and Marrow Transplant 05/04/18 Fidel De La Garza MD [address] [place] [place], [place] 4156295 Consulting Hematology/Oncology 05/15/18 Halima Cohen (Rn), [place] [address] [place] 4955806 Specialty Plastics Heat Welder HOSPICE & PALLIATIVE MEDICINE 05/15/18 Nargis Ortega RN [address] [place], [place] [phone] Child Psychometrist 05/27/21 Ela Alvarez MD [address] [place] [address] Hematology/Oncology 04/26/22 Nancie Low RN [address] [place] [address] Specialty Plastics Heat Welder Hematology/Oncology 04/26/22 Front Office Specialist Relationship Specialty Start Date End Date Ovidio Vincent MD 1740 [place] [address] PCP - General Family Practice 03/16/21 Becky Leija MD, [address] [place] [address] Physician Radiation Oncology 11/24/17 Krissyjessica Alinmo De La Garza [address] [place], [place] 316461 Pain Management Anesthesiology 01/30/18 Santos Woods MD [address] [address] Physician Blood and Marrow Transplant 05/04/18 Fidel De La Garza MD 4058 [place] [address] Consulting Hematology/Oncology 05/15/18 Halima Cohen (Rn), RN [address] [place], [place] 2685006 Specialty Plastics Heat Welder HOSPICE & PALLIATIVE MEDICINE 05/15/18 Nargis Ortega, RN [address] [place], [place] [phone] Child Psychometrist 05/27/21 Ela Alvarez MD [address] [place] [address] Hematology/Oncology 04/26/22 Nancie Low RN [address] [place] [address] Specialty Plastics Heat Welder Hematology/Oncology 04/26/22 Front Office Specialist Relationship Specialty Start Date End Date Ovidio Vincent MD [address] [place] [address] PCP - General Family Practice 03/16/21 Becky Leija MD, [address] [place] [address] Physician Radiation Oncology 11/24/17 Tato Castro [address] [place], [place] 010611 Pain Management Anesthesiology 01/30/18 Santos Woods MD [address] [address] Physician Blood and Marrow Transplant 05/04/18 Fidel De La Garza MD [address] [place] [address] Consulting Hematology/Oncology 05/15/18 Halima Cohen (Rn), [place] [address] [place] [address] Specialty Plastics Heat Welder HOSPICE & PALLIATIVE MEDICINE 05/15/18 Nargis Ortega RN [address] [place] [address] Child Psychometrist 05/27/21 Ela Alvarez MD [address] [place] [address] Hematology/Oncology 04/26/22 Nnacie Low RN [address] [place] [address] Specialty Plastics Heat Welder Hematology/Oncology 04/26/22 Front Office Specialist Relationship Specialty Start Date End Date Ovidio Vincent MD [address] [place] [address] PCP - General Family Practice 03/16/21 Becky Leija MD, [address] [place] [address] Physician Radiation Oncology 11/24/17 Tato Castro [address] [place] [address] Pain Management Anesthesiology 01/30/18 Santos Woods MD 0983 [facility] [address] [address] Physician Blood and Marrow Transplant 05/04/18 Fidel De La Garza MD [address] [place] [address] Consulting Hematology/Oncology 05/15/18 Halima Cohen (Rn), [place] [address] [place] [address] Specialty Plastics Heat Welder HOSPICE & PALLIATIVE MEDICINE 05/15/18 Nargis Ortega RN [address] [place] [address] Child Psychometrist 05/27/21 Ela Alvarez MD [address] [place] [address] Hematology/Oncology 04/26/22 Nancie Low RN [address] [place] [address] Specialty Plastics Heat Welder Hematology/Oncology 04/26/22 Front Office Specialist Relationship Specialty Start Date End Date Ovidio Vincent MD [address] [place] [address] PCP - General Family Medicine 03/16/21 Becky Leija MD, MD [address] [place] [address] Physician Radiation Oncology 11/24/17 Tato Castro [address] [place], [place] 026091 Pain Management Anesthesiology 01/30/18 Santos Woods MD [address] 409405 [place] [address] Physician Blood and Marrow Transplant 05/04/18 Fidel De La Garza MD 3347 [place] [address] Consulting Hematology/Oncology 05/15/18 Halima Cohen ([place]n), [place] [address] [place] [address] Specialty Plastics Heat Welder HOSPICE & PALLIATIVE MEDICINE 05/15/18 Nargis Ortega RN 6[address] [place] [address] Child Psychometrist 05/27/21 Ela Alvarez MD [address] [place], [place] 548348 [phone] Hematology/Oncology 04/26/22 Nancie Low RN [address] [place] [address] Specialty Plastics Heat Welder Hematology/Oncology 04/26/22 Front Office Specialist Relationship Specialty Start Date End Date Ovidio Vincent MD [address] [place] [address] PCP - General Family Medicine 03/16/21 Becky Leija MD, [address] [place], [place] 14222226 [phone] Physician Radiation Oncology 11/24/17 Tato Castro [address] [place] [address] [id number] Pain Management Anesthesiology 01/30/18 Santos Woods MD [address] 409405 [place], [place] 9430095 Physician Blood and Marrow Transplant 05/04/18 Fidel De La Garza MD 2972 [place] [address] Consulting Hematology/Oncology 05/15/18 Halima Cohen (Rn), [place] [address] [place], [place] 6940406 Specialty Plastics Heat Welder HOSPICE & PALLIATIVE MEDICINE 05/15/18 Nargis Ortega, RN [address] [place] [address] Child Psychometrist 05/27/21 Ela Alvarez MD [address] [place] [address] Hematology/Oncology 04/26/22 Nancie Low RN [address] [place] [address] Specialty Plastics Heat Welder Hematology/Oncology 04/26/22 Front Office Specialist Relationship Specialty Start Date End Date Ovidio Vincent MD [address] [place] [address] PCP - General Family Medicine 03/16/21 Becky Leija MD, [address] [place] [address] Physician Radiation Oncology 11/24/17 Tato Castro [address] [place], [place] 179601 Pain Management Anesthesiology 01/30/18 Santos Woods MD [address] [address] Physician Blood and Marrow Transplant 05/04/18 Fidel De La Garza MD 7998 [place] [address] Consulting Hematology/Oncology 05/15/18 Halima Cohen (Rn), [place] [address] [place], [place] 0140106 Specialty Plastics Heat Welder HOSPICE & PALLIATIVE MEDICINE 05/15/18 Nargis Ortega, RN 6[address] [place] [address] Child Psychometrist 05/27/21 Ela Alvarez MD [address] [place] [address] Hematology/Oncology 04/26/22 Nancie Low, ALICIA [address] [place] [address] Specialty Plastics Heat Welder Hematology/Oncology 04/26/22 Front Office Specialist Relationship Specialty Start Date End Date Ovidio Vincent MD [address] [place] [address] PCP - General Family Medicine 03/16/21 Becky Leija MD, [address] [place] [address] Physician Radiation Oncology 11/24/17 Matthew Tato De La Garza [address] [place], [place] 751731 Pain Management Anesthesiology 01/30/18 Santos Woods MD [address] 409405 [place], [place] 9791595 Physician Blood and Marrow Transplant 05/04/18 Fidel De La Garza MD 9205 [place], [place] 0937995 Consulting Hematology/Oncology 05/15/18 Halima [place] ([place]n), [place] [address] [place], [place] 3792706 Specialty Plastics Heat Welder HOSPICE & PALLIATIVE MEDICINE 05/15/18 Nargis Ortega, RN [address] [place] [address] Child Psychometrist 05/27/21 Ela Alvarez MD [address] [place] [address] Hematology/Oncology 04/26/22 Nancie Low, ALICIA [address] [place] [address] Specialty Plastics Heat Welder Hematology/Oncology 04/26/22 Front Office Specialist Relationship Specialty Start Date End Date Ovidio Vincent MD 1740 [place] [address] PCP - General Family Medicine 03/16/21 Becky Leija MD, [address] [place] [address] Physician Radiation Oncology 11/24/17 Tato Castro [address] [place], [place] 531521 Pain Management Anesthesiology 01/30/18 Santos Woods MD 9822 [facility] [address] [place], [place] 5946095 Physician Blood and Marrow Transplant 05/04/18 Fidel De La Garza MD 3681 [place], [place] 4488495 Consulting Hematology/Oncology 05/15/18 Halima Cohen (Rn), [place] [address] [place], [place] 0742806 Specialty Plastics Heat Welder HOSPICE & PALLIATIVE MEDICINE 05/15/18 Nargis Ortega RN [address] [place], [place] 9088331 Child Psychometrist 05/27/21 Ela Alvarez MD [address] [place] [address] Hematology/Oncology 04/26/22 Nancie Low, ALICIA [address] [place] [address] Specialty Plastics Heat Welder Hematology/Oncology 04/26/22 Front Office Specialist Relationship Specialty Start Date End Date Ovidio Vincent MD [address] [place] [address] PCP - General Family Medicine 03/16/21 Becky Leija MD, [address] [place] [address] Physician Radiation Oncology 11/24/17 Tato Castro [address] [place], [place] 765371 Pain Management Anesthesiology 01/30/18 Santos Woods MD [address] [place] [address] Physician Blood and Marrow Transplant 05/04/18 Fidel De La Garza MD 9478 [facility] [place] [place] 0632995 Consulting Hematology/Oncology 05/15/18 Halima [place] (Rn), [place] [address] [place] [address] Specialty Plastics Heat Welder HOSPICE & PALLIATIVE MEDICINE 05/15/18 Nargis Ortega, RN 6000 [place] [address] Child Psychometrist 05/27/21 Ela Alvraez MD [address] [place] [address] Hematology/Oncology 04/26/22 Nancie Low, ALICIA [address] [place] [address] Specialty Plastics Heat Welder Hematology/Oncology 04/26/22 Front Office Specialist Relationship Specialty Start Date End Date Ovidio Vincent MD 1740 [place] [address] PCP - General Family Medicine 03/16/21 Becky Leija MD, [address] [place] [address] Physician Radiation Oncology 11/24/17 Tato Castro [address] [place], [place] 421501 Pain Management Anesthesiology 01/30/18 Santos Woods MD [address] [place], [place] 8481295 Physician Blood and Marrow Transplant 05/04/18 Fidel De La Garza MD 9618 [place], [place] 2996195 Consulting Hematology/Oncology 05/15/18 Hal[place] ([place]n), [place] [address] [place], [place] 4849906 Specialty Plastics Heat Welder HOSPICE & PALLIATIVE MEDICINE 05/15/18 Nargis Ortega RN [address] [place] [address] Child Psychometrist 05/27/21 Ela Alvarez MD [address] [place] [address] Hematology/Oncology 04/26/22 Nancie Low RN [address] [place] [address] Specialty Plastics Heat Welder Hematology/Oncology 04/26/22 Front Office Specialist Relationship Specialty Start Date End Date Ovidio Vincent MD [address]40 [place] [address] PCP - General Family Medicine 03/16/21 Becky Leija MD, [address] [place] [address] Physician Radiation Oncology 11/24/17 Tato Castro [address] [place] [address] Pain Management Anesthesiology 01/30/18 Santos Woods MD [address] [address] Physician Blood and Marrow Transplant 05/04/18 Fidel De La Garza MD 3706 [place], [place] 5590095 Consulting Hematology/Oncology 05/15/18 Hal[place] ([place]n), [place] [address] [place], [place] 0767418 Specialty Plastics Heat Welder HOSPICE & PALLIATIVE MEDICINE 05/15/18 Nargis Ortega RN [address] [place], [place] [phone] Child Psychometrist 05/27/21 Ela Alvarez MD [address] [place] [address] Hematology/Oncology 04/26/22 Nancie Low, ALICIA [address] [place] [address] Specialty Plastics Heat Welder Hematology/Oncology 04/26/22 Front Office Specialist Relationship Specialty Start Date End Date Ovidio Vincent MD [address] [place] [address] PCP - General Family Medicine 03/16/21 Becky Leija MD, [address] [place] [address] Physician Radiation Oncology 11/24/17 Tato Castro [address] [place] [address] Pain Management Anesthesiology 01/30/18 Santos Woods MD [address] [place] [address] Physician Blood and Marrow Transplant 05/04/18 Fidel De La Garza MD [address] [place] [address] Consulting Hematology/Oncology 05/15/18 Halima Cohen (Rn), [place] [address] [place], [place] [id number] Specialty Plastics Heat Welder HOSPICE & PALLIATIVE MEDICINE 05/15/18 Nargis Ortega RN [address] [place] [address] Child Psychometrist 05/27/21 Ela Alvarez MD [address] [place] [address] Hematology/Oncology 04/26/22 Nancie Low RN [address] [place] [address] Specialty Plastics Heat Welder Hematology/Oncology 04/26/22 Front Office Specialist Relationship Specialty Start Date End Date Ovidio Vincent MD [address] [place] [address] PCP - General Family Medicine 03/16/21 Becky Leija MD, [address] [place] [address] Physician Radiation Oncology 11/24/17 Tato Castro [address] [place], [place] [id number] Pain Management Anesthesiology 01/30/18 Santos Woods MD [address] [place] [address] Physician Blood and Marrow Transplant 05/04/18 Fidel De La Garza MD [address] [place] [address] Consulting Hematology/Oncology 05/15/18 Halima Cohen (Rn), [place] [address] [place], [place] [id number] Specialty Plastics Heat Welder HOSPICE & PALLIATIVE MEDICINE 05/15/18 Nargis Ortega, ALICIA [address] [place] [address] Child Psychometrist 05/27/21 Ela Alvarez MD [address] [place] [address] Hematology/Oncology 04/26/22 Nancie Low RN [address] [place] [address] Specialty Plastics Heat Welder Hematology/Oncology 04/26/22 Front Office Specialist Relationship Specialty Start Date End Date Ovidio Vincent MD [address] [place] [address] PCP - General Family Medicine 03/16/21 Becky Leija MD, [address] [place] [address] Physician Radiation Oncology 11/24/17 Tato Castro [address] [place] [address] Pain Management Anesthesiology 01/30/18 Santos Woods MD [address] [place] [address] Physician Blood and Marrow Transplant 05/04/18 Fidel De La Garza MD [address] [place] [address] Consulting Hematology/Oncology 05/15/18 Halima [place] ([place]n), [place] [address] [place], [place] [id number] Specialty Plastics Heat Welder HOSPICE & PALLIATIVE MEDICINE 05/15/18 Nargis Ortega, RN [address] [place] [address] Child Psychometrist 05/27/21 Ela Alvarez MD [address] [place] [address] Hematology/Oncology 04/26/22 Nancie Low, ALICIA [address] [place] [address] Specialty Plastics Heat Welder Hematology/Oncology 04/26/22 Front Office Specialist Relationship Specialty Start Date End Date Ovidio Vincent MD [address] [place] [address] PCP - General Family Medicine 03/16/21 Becky Leija MD, [address] [place] [address] Physician Radiation Oncology 11/24/17 Tato Castro [address] [place], [place] 970541 Pain Management Anesthesiology 01/30/18 Santos Woods MD [address] [facility] [address] [place] [address] Physician Blood and Marrow Transplant 05/04/18 Fidel De La Garza MD [address] [place], [place] 2349195 Consulting Hematology/Oncology 05/15/18 Halima [place] ([place]n), [place] [address] [place], [place] 0774806 Specialty [employer] Heat Welder HOSPICE & PALLIATIVE MEDICINE 05/15/18 Nargis Ortega, RN [address] [place] [address] Child Psychometrist 05/27/21 Ela Alvarez MD [address] [place] [address] Hematology/Oncology 04/26/22 Nancie Low, ALICIA [address] [place] [address] Specialty Plastics Heat Welder Hematology/Oncology 04/26/22 Front Office Specialist Relationship Specialty Start Date End Date Ovidio Vincent MD [address] [place] [address] PCP - General Family Medicine 03/16/21 Becky Leija MD, [address] [place] [address] Physician Radiation Oncology 11/24/17 Tato Castro [address] [place], [place] 481541 Pain Management Anesthesiology 01/30/18 Santos Woods MD 9500 [facility] [address] [place] [address] Physician Blood and Marrow Transplant 05/04/18 Fidel De La Garza MD [address] [place], [place] [id number] Consulting Hematology/Oncology 05/15/18 Halima Cohen (Rn), [place] [address] [place], [place] [phone] Specialty Plastics Heat Welder HOSPICE & PALLIATIVE MEDICINE 05/15/18 Nargis Ortega RN [address] [place], [place] [id number] Child Psychometrist 05/27/21 Ela Alvarez MD [address] [place] [address] Hematology/Oncology 04/26/22 Nancie Low, ALICIA [address] [place] [address] Specialty Plastics Heat Welder Hematology/Oncology 04/26/22 Front Office Specialist Relationship Specialty Start Date End Date Ovidio Vincent MD [address] [place] [address] PCP - General Family Medicine 03/16/21 Becky Leija MD, [address] [place] [address] Physician Radiation Oncology 11/24/17 Tato Castro [address] [place], [place] 546081 Pain Management Anesthesiology 01/30/18 Santos Woods MD [address] [id number] Physician Blood and Marrow Transplant 05/04/18 Fidel De La Garza MD [address] [place], [place] 9974195 Consulting Hematology/Oncology 05/15/18 Halima [place] (Rn), [place] [address] [place], [place] 4564706 Specialty Plastics Heat Welder HOSPICE & PALLIATIVE MEDICINE 05/15/18 Nargis Ortega, RN [address] [place], [place] [phone] Child Psychometrist 05/27/21 Ela Alvarez MD [address] [place] [address] Hematology/Oncology 04/26/22 Nancie Low RN [address] [place] [address] Specialty Plastics Heat Welder Hematology/Oncology 04/26/22 Front Office Specialist Relationship Specialty Start Date End Date Ovidio Vincent MD [address] [place] [address] PCP - General Family Medicine 03/16/21 Becky Leija MD, [address] [place] [address] Physician Radiation Oncology 11/24/17 Tato Castro [address] [place], [place] [phone] Pain Management Anesthesiology 01/30/18 Santos Woods MD [address] [facility] [address] [place] [address] Physician Blood and Marrow Transplant 05/04/18 Fidel De La Garza MD [address] [place] [address] Consulting Hematology/Oncology 05/15/18 Halima [place] ([place]n), [place] [address] [place], [place] 0282106 Specialty Plastics Heat Welder HOSPICE & PALLIATIVE MEDICINE 05/15/18 Nargis Ortega RN [address] [place], [place] [phone] Child Psychometrist 05/27/21 Ela Alvarez MD [address] [place] [address] Hematology/Oncology 04/26/22 Nancie Low RN [address] [place] [address] Specialty Plastics Heat Welder Hematology/Oncology 04/26/22 Front Office Specialist Relationship Specialty Start Date End Date Ovidio Vincent MD [address] [place] [address] PCP - General Family Medicine 03/16/21 Becky Leija MD, [address] [place] [address] Physician Radiation Oncology 11/24/17 Tato Castro [address] [place] [address] Pain Management Anesthesiology 01/30/18 Santos Woods MD [address] [address] Physician Blood and Marrow Transplant 05/04/18 Fidel De La Garza MD [address] [place] [address] Consulting Hematology/Oncology 05/15/18 Halima [place] ([place]n), [place] [address] [place], [place] 0161606 Specialty Plastics Heat Welder HOSPICE & PALLIATIVE MEDICINE 05/15/18 Ela Alvarez MD [address] [place] [address] Hematology/Oncology 04/26/22 Nancie Low RN [address] [place] [address] Specialty Plastics Heat Welder Hematology/Oncology 04/26/22 Mara Guardado RN Child Psychometrist 10/21/22 Front Office Specialist Relationship Specialty Start Date End Date Ovidio Vincent MD [address] [place] [address] PCP - General Family Medicine 03/16/21 Becky Leija MD, MD [address] [place] [address] Physician Radiation Oncology 11/24/17 Tato Castro [address] [place] [address] Pain Management Anesthesiology 01/30/18 Santos Woods MD [address] [address] Physician Blood and Marrow Transplant 05/04/18 Fidel De La Garza MD [address] [place] [address] Consulting Hematology/Oncology 05/15/18 Halima Cohen ([place]n), [place] [address] [place], [place] 4032006 Specialty Plastics Heat Welder HOSPICE & PALLIATIVE MEDICINE 05/15/18 Ela Alvarez MD [address] [facility] [place] [address] Hematology/Oncology 04/26/22 Nancie Low RN [address] [place] [address] Specialty Plastics Heat Welder Hematology/Oncology 04/26/22 Mara Guardado, mail censorChild Psychometrist 10/21/22 Front Office Specialist Relationship Specialty Start Date End Date Ovidio Vincent MD [address]40 [place] [address] PCP - General Family Medicine 03/16/21 Becky Leija MD, [address] [place] [address] Physician Radiation Oncology 11/24/17 Tato Castro [address] [place] [address] Pain Management Anesthesiology 01/30/18 Santos Woods MD [address] [facility] [place], [place] 1997595 Physician Blood and Marrow Transplant 05/04/18 Fidel De La Garza MD [address] [place] [address] Consulting Hematology/Oncology 05/15/18 Halima Cohen (Rn), [place] [address] [place] 3826106 Specialty Plastics Heat Welder HOSPICE & PALLIATIVE MEDICINE 05/15/18 Ela Alvarez MD [address] [place] [address] Hematology/Oncology 04/26/22 Nancie Low RN [address] [place] [address] Specialty Plastics Heat Welder Hematology/Oncology 04/26/22 Mara Guardado, mail censorChild Psychometrist 10/21/22 Front Office Specialist Relationship Specialty Start Date End Date Ovidio Vincent MD [address] [place] [address] PCP - General Family Medicine 03/16/21 Becky Leija MD, [address] [place] [address] Physician Radiation Oncology 11/24/17 Tato Castro [address] [place] [address] Pain Management Anesthesiology 01/30/18 Santos Woods MD [address] [place], [place] 4997395 Physician Blood and Marrow Transplant 05/04/18 Fidel De La Garza MD [address] [place], [place] 1165095 Consulting Hematology/Oncology 05/15/18 Halima Cohen (Rn), [place] [address] [place], [place] 2570006 Specialty Plastics Heat Welder HOSPICE & PALLIATIVE MEDICINE 05/15/18 Ela Alvarez MD [address] [place] [address] Hematology/Oncology 04/26/22 Nancie Low, ALICIA [address] [place] [address] Specialty Plastics Heat Welder Hematology/Oncology 04/26/22 Mara Guardado, mail censorChild Psychometrist 10/21/22 Front Office Specialist Relationship Specialty Start Date End Date Ovidio Vincent MD [address] [place] [address] PCP - General Family Medicine 03/16/21 Becky Leija MD, [address] [place] [address] Physician Radiation Oncology 11/24/17 Tato Castro [address] [place], [place] 520831 Pain Management Anesthesiology 01/30/18 Santos Woods MD [address] [address] Physician Blood and Marrow Transplant 05/04/18 Fidel De La Garza MD [address] [place] [address] Consulting Hematology/Oncology 05/15/18 Halima Cohen (Rn), [place] [address] [place] [address] Specialty Plastics Heat Welder HOSPICE & PALLIATIVE MEDICINE 05/15/18 Ela Alvarez MD [address] [place] [address] Hematology/Oncology 04/26/22 Nancie Low, ALICIA [address] [place] [address] Specialty Plastics Heat Welder Hematology/Oncology 04/26/22 Mara Guardado, mail censorChild Psychometrist 10/21/22 Front Office Specialist Relationship Specialty Start Date End Date Ovidio Vincent MD [address] [place] [address] PCP - General Family Medicine 03/16/21 Becky Leija MD, [address] [place] [address] Physician Radiation Oncology 11/24/17 Tato Castro [address] [place], [place] [phone] Pain Management Anesthesiology 01/30/18 Santos Woods MD [address] [address] Physician Blood and Marrow Transplant 05/04/18 Fidel De La Garza MD [address] [place] [address] Consulting Hematology/Oncology 05/15/18 Halima Cohen (Rn), [place] [address] [place], [place] 1595606 Specialty Plastics Heat Welder HOSPICE & PALLIATIVE MEDICINE 05/15/18 Ela Alvarez MD [address] [place] [address] Hematology/Oncology 04/26/22 Nancie Low RN [address] [place] [address] Specialty Plastics Heat Welder Hematology/Oncology 04/26/22 Mara Guardado, mail censorChild Psychometrist 10/21/22 Front Office Specialist Relationship Specialty Start Date End Date Ovidio Vincent MD [address] [place] [address] PCP - General Family Medicine 03/16/21 Becky Leija MD, [address] [place] [address] Physician Radiation Oncology 11/24/17 Tato Castro [address] [place] [address] Pain Management Anesthesiology 01/30/18 Santos Woods MD [address] [address] Physician Blood and Marrow Transplant 05/04/18 Fidel De La Garza MD [address] [place] [address] Consulting Hematology/Oncology 05/15/18 Halima Cohen (Rn), [place] [address] [place] [address] Specialty Plastics Heat Welder HOSPICE & PALLIATIVE MEDICINE 05/15/18 Ela Alvarez MD [address] [place] [address] Hematology/Oncology 04/26/22 Nancie Low RN [address] [place] [address] Specialty Plastics Heat Welder Hematology/Oncology 04/26/22 Mara Guardado, mail censorChild Psychometrist 10/21/22 Front Office Specialist Relationship Specialty Start Date End Date Ovidio Vincent MD [address] [place] [address] PCP - General Family Medicine 03/16/21 Becky Leija MD, [address] [place] [address] Physician Radiation Oncology 11/24/17 Tato Castro [address] [place] [address] Pain Management Anesthesiology 01/30/18 Santos Woods MD [address] [facility] [place], [place] 9871995 Physician Blood and Marrow Transplant 05/04/18 Fidel De La Garza MD [address] [place] [address] Consulting Hematology/Oncology 05/15/18 Halima Cohen (Rn), [place] [address] [place] [address] Specialty Plastics Heat Welder HOSPICE & PALLIATIVE MEDICINE 05/15/18 Ela Alvarez MD [address] [place] [address] Hematology/Oncology 04/26/22 Nancie Low RN [address] [place] [address] Specialty Plastics Heat Welder Hematology/Oncology 04/26/22 Mara Guardado, mail censorChild Psychometrist 10/21/22 Front Office Specialist Relationship Specialty Start Date End Date Ovidio Vincent MD [address] [place] [address] PCP - General Family Medicine 03/16/21 Becky Leija MD, [address] [place] [address] Physician Radiation Oncology 11/24/17 Tato Castro [address] [place] [address] Pain Management Anesthesiology 01/30/18 Santos Woods MD [address] [facility] [place] [address] Physician Blood and Marrow Transplant 05/04/18 Fidel De La Garza MD [address] [place] [address] Consulting Hematology/Oncology 05/15/18 Halima [place] ([place]n), [place] [address] [place], [place] 6417606 Specialty Plastics Heat Welder HOSPICE & PALLIATIVE MEDICINE 05/15/18 Ela Alvarez MD [address] [place] [address] Hematology/Oncology 04/26/22 Nancie Low, ALICIA [address] [place] [address] Specialty Plastics Heat Welder Hematology/Oncology 04/26/22 Mara Guardado, mail censorChild Psychometrist 10/21/22 Front Office Specialist Relationship Specialty Start Date End Date Ovidio Vincent MD [address] [place] [address] PCP - General Family Medicine 03/16/21 Becky Leija MD, MD [address] [place] [address] Physician Radiation Oncology 11/24/17 Tato Castro [address] [place], [place] 518141 Pain Management Anesthesiology 01/30/18 Santos Woods MD 3943 [facility] [address] [place], [place] 4687095 Physician Blood and Marrow Transplant 05/04/18 Fidel De La Garza MD [address] [place], [place] 8800895 Consulting Hematology/Oncology 05/15/18 Halima [place] (Rn), [place] [address] [place], [place] 1661406 Specialty Plastics Heat Welder HOSPICE & PALLIATIVE MEDICINE 05/15/18 Ela Alvarez MD [address] [place] [address] Hematology/Oncology 04/26/22 Nancie Low, ALICIA [address] [place] [address] Specialty Plastics Heat Welder Hematology/Oncology 04/26/22 Mara Guardado, mail censorChild Psychometrist 10/21/22 Front Office Specialist Relationship Specialty Start Date End Date Ovidio Vincent MD [address] [place] [address] PCP - General Family Medicine 03/16/21 Becky Leija MD, [address] [place] [address] Physician Radiation Oncology 11/24/17 Tato Castro [address] [place], [place] 004821 Pain Management Anesthesiology 01/30/18 Santos Woods MD [address] [id number] Physician Blood and Marrow Transplant 05/04/18 Fidel De La Garza MD [address] [place], [place] 2533295 Consulting Hematology/Oncology 05/15/18 Halima Cohen (Rn), [place] [address] [place], [place] 9606306 Specialty Plastics Heat Welder HOSPICE & PALLIATIVE MEDICINE 05/15/18 Ela Alvarez MD [address] [place] [address] Hematology/Oncology 04/26/22 Nancie Low, ALICIA [address] [place] [address] Specialty Plastics Heat Welder Hematology/Oncology 04/26/22 Mara Guardado, mail censorChild Psychometrist 10/21/22 Front Office Specialist Relationship Specialty Start Date End Date Ovidio Vincent MD [address] [place] [address] PCP - General Family Medicine 03/16/21 Becky Leija MD, [address] [place] [address] Physician Radiation Oncology 11/24/17 Tato Castro [address] [place], [place] 01959691 Pain Management Anesthesiology 01/30/18 Santos Woods MD [address] [address] Physician Blood and Marrow Transplant 05/04/18 Fidel De La Garza MD [address] [place] [address] Consulting Hematology/Oncology 05/15/18 Halima Cohen (Rn), [place] [address] [place], [place] 3103406 Specialty Plastics Heat Welder HOSPICE & PALLIATIVE MEDICINE 05/15/18 Ela Alvarez MD [address] [place] [address] Hematology/Oncology 04/26/22 Nancie Low RN [address] [place] [address] Specialty Plastics Heat Welder Hematology/Oncology 04/26/22 Mara Guardado, mail censorChild Psychometrist 10/21/22 Front Office Specialist Relationship Specialty Start Date End Date Ovidio Vincent MD [address] [place] [address] PCP - General Family Medicine 03/16/21 Becky Leija MD, [address] [place] [address] Physician Radiation Oncology 11/24/17 Tato Castro [address] [place] [address] Pain Management Anesthesiology 01/30/18 Santos Woods MD [address] [address] Physician Blood and Marrow Transplant 05/04/18 Fidel De La Garza MD [address] [place] [address] Consulting Hematology/Oncology 05/15/18 Halima Cohen (Rn), [place] [address] [place], [place] 5872706 Specialty Plastics Heat Welder HOSPICE & PALLIATIVE MEDICINE 05/15/18 Ela Alvarez MD [address] [place] [address] Hematology/Oncology 04/26/22 Nancie Low, ALICIA [address] [place] [address] Specialty Plastics Heat Welder Hematology/Oncology 04/26/22 Mara Guardado, mail censorChild Psychometrist 10/21/22 Team Status: Active Member Role Status Dates Dr. Daniel Vallejo III, MD Family Provider Active Dr. Ovidio Vincent MD Primary Care Provider Active Team Status: Inactive Member Role Status Dates Dr. Ovidio Vincent MD Primary Care Provider Active Dr. Shabbir Davila MD Admit Provider, Attending Provid er Active Front Office Specialist Relationship Specialty Start Date End Date Ovidio Vincent MD [address] [place] [address] PCP - General Family Medicine 03/16/21 Becky Leija MD, MD [address] [place] [address] Physician Radiation Oncology 11/24/17 Tato Castro [address] [place] [address] Pain Management Anesthesiology 01/30/18 Santos Woods MD [address] [place] [address] Physician Blood and Marrow Transplant 05/04/18 Fidel De La Garza MD [address] [place] [address] Consulting Hematology/Oncology 05/15/18 Halima Cohen ([place]), [place] [address] [place] [address] Specialty Plastics Heat Welder HOSPICE & PALLIATIVE MEDICINE 05/15/18 Ela Alvarez MD [address] [place], [place] 224421 Hematology/Oncology 04/26/22 Nancie Low, ALICIA [address] [place] [address] Specialty Plastics Heat Welder Hematology/Oncology 04/26/22 Mara Guardado, mail censorChild Psychometrist 10/21/22 Front Office Specialist Relationship Specialty Start Date End Date Ovidio Vincent MD [address] [place] [address] PCP - General Family Medicine 03/16/21 Becky Leija MD, [address] [place] [address] Physician Radiation Oncology 11/24/17 Tato Castro [address] [place] [address] [id number] Pain Management Anesthesiology 01/30/18 Santos Woods MD [address] [place] [address] Physician Blood and Marrow Transplant 05/04/18 Fidel De La Garza MD [address] [place], [place] 7599995 Consulting Hematology/Oncology 05/15/18 Halima Cohen (Rn), [place] [address] [place] [address] Specialty Plastics Heat Welder HOSPICE & PALLIATIVE MEDICINE 05/15/18 Ela Alvarez MD [address] [place], [place] 86590691 Hematology/Oncology 04/26/22 Nancie Low RN [address] [place] [address] Specialty Plastics Heat Welder Hematology/Oncology 04/26/22 Mara Guardado, mail censorChild Psychometrist 10/21/22 Team Status: Active Member Role Status [...] Dr. Adam Bridges DO Emergency Provider Active Front Office Specialist Relationship Specialty Start Date End Date Ovidio Vincent MD [address] [place], [place] [id number] PCP - General Family Medicine 03/16/21 Becky Leija MD, [address] [place], [place] 293081 Physician Radiation Oncology 11/24/17 Tato Castro [address] [place], [place] 795361 Pain Management Anesthesiology 01/30/18 Santos Woods MD [address] [place] [address] Physician Blood and Marrow Transplant 05/04/18 Fidel De La Garza MD 4862 [place] [address] Consulting Hematology/Oncology 05/15/18 Halima Cohen (Rn), [place] [address] [place], [place] 5348206 Specialty Plastics Heat Welder HOSPICE & PALLIATIVE MEDICINE 05/15/18 Ela Alvarez MD [address] [place], [place] 596241 Hematology/Oncology 04/26/22 Nancie Low RN [address] [facility] [place], [place] 67920691 Specialty Plastics Heat Welder Hematology/Oncology 04/26/22 Mara Guardado, mail censorChild Psychometrist 10/21/22 Front Office Specialist Relationship Specialty Start Date End Date Ovidio Vincent MD [address] [place] [address] PCP - General Family Medicine 03/16/21 Becky Leija MD, [address] [place] [address] Physician Radiation Oncology 11/24/17 Tato Castro [address] [place] [address]111 Pain Management Anesthesiology 01/30/18 Santos Woods MD [address] [place], [place] 5863695 Physician Blood and Marrow Transplant 05/04/18 Fidel De La Garza MD [address] [place] [address] Consulting Hematology/Oncology 05/15/18 Halima Cohen (Rn), [place] [address] [place], [place] 3866006 Specialty Plastics Heat Welder HOSPICE & PALLIATIVE MEDICINE 05/15/18 Ela Alvarez MD [address] [place] [address] Hematology/Oncology 04/26/22 Nancie Low, ALICIA [address] [place] [address] Specialty Plastics Heat Welder Hematology/Oncology 04/26/22 Mara Guardado, mail censorChild Psychometrist 10/21/22 Front Office Specialist Relationship Specialty Start Date End Date Ovidio Vincent MD [address] [place] [address] PCP - General Family Medicine 03/16/21 Becky Leija MD, MD [address] [place], [place] [phone] Physician Radiation Oncology 11/24/17 Tato Castro [address] [place] [address] 674331 Pain Management Anesthesiology 01/30/18 Santos Woods MD 4279 [facility] [place] [address] Physician Blood and Marrow Transplant 05/04/18 Fidel De La Garza MD [address] [place], [place] 6542095 Consulting Hematology/Oncology 05/15/18 Halima [place] (Rn), [place] [address] [place], [place] 8514406 Specialty Pl[employer] Heat Welder HOSPICE & PALLIATIVE MEDICINE 05/15/18 Ela Alvarez MD [address] [place], [place] 33073691 Hematology/Oncology 04/26/22 Nancie Low, ALICIA [address] [place], [place] [id number] Specialty Plastics Heat Welder Hematology/Oncology 04/26/22 Marta Lui, ALICIA [address] [place] [address] Child Psychometrist 02/22/23 Front Office Specialist Relationship Specialty Start Date End Date Ovidio Vincent MD [address] [place], [place] [id number] PCP - General Family Medicine 03/16/21 Becky Leija MD, [address] [place], [place] 13199691 Physician Radiation Oncology 11/24/17 Alin Castroman De La Garza [address] [place] [address] Pain Management Anesthesiology 01/30/18 Santos Woods MD [address] [id number] Physician Blood and Marrow Transplant 05/04/18 Fidel De La Garza MD [address] [place] [place], [place] 5954695 Consulting Hematology/Oncology 05/15/18 Halima [place] (Rn), [place] [address] [place] [address] Specialty Plastics Heat Welder HOSPICE & PALLIATIVE MEDICINE 05/15/18 Ela Alvarez MD [address] [place], [place] 67064691 Hematology/Oncology 04/26/22 Nancie Low, ALICIA [address] [place] [address] Specialty Plastics Heat Welder Hematology/Oncology 04/26/22 Marta Lui, ALICIA [address] [place] [address] Child Psychometrist 02/22/23 Front Office Specialist Relationship Specialty Start Date End Date Ovidio Vincent MD [address] [place] [address] PCP - General Family Medicine 03/16/21 Becky Leija MD, [address] [place] [address] Physician Radiation Oncology 11/24/17 Krissyjessica Alinmo [address] [place] [address] Pain Management Anesthesiology 01/30/18 Santos Woods MD [address] [address] Physician Blood and Marrow Transplant 05/04/18 Fidel De La Garza MD [address] [place] [address] Consulting Hematology/Oncology 05/15/18 Halima [place] ([place]n), [place] [address] [place] [address] Specialty Plastics Heat Welder HOSPICE & PALLIATIVE MEDICINE 05/15/18 Ela Alvarez MD [address] [place], [place] [id number] Hematology/Oncology 04/26/22 Nancie Low, ALICIA [address] [place], [place] [id number] Specialty Plastics Heat Welder Hematology/Oncology 04/26/22 Marta Lui, ALICIA [address] [place] [address] Child Psychometrist 02/22/23 Front Office Specialist Relationship Specialty Start Date End Date Ovidio Vincent MD [address] [place], [place] [id number] PCP - General Family Medicine 03/16/21 Becky Leija MD, [address] [place], [place] [phone] Physician Radiation Oncology 11/24/17 Tato Castro [address] [place], [place] [phone] Pain Management Anesthesiology 01/30/18 Santos Woods MD [address] [facility] [address] [address] Physician Blood and Marrow Transplant 05/04/18 Fidel De La Garza MD [address] [place] [address] Consulting Hematology/Oncology 05/15/18 Halima Cohen (Rn), [place] [address] [place], [place] [phone] Specialty Plastics Heat Welder HOSPICE & PALLIATIVE MEDICINE 05/15/18 Ela Alvarez MD [address] [place] [address] Hematology/Oncology 04/26/22 Nancie Low, ALICIA [address] [place] [address] Specialty Plastics Heat Welder Hematology/Oncology 04/26/22 Marta Lui RN [address] [place], [place] [id number] Child Psychometrist 02/22/23 Front Office Specialist Relationship Specialty Start Date End Date Ovidio Vincent MD [address] [place] [address] PCP - General Family Medicine 03/16/21 Becky Leija MD, [address] [place] [address] Physician Radiation Oncology 11/24/17 Tato Castro [address] [place] [address] Pain Management Anesthesiology 01/30/18 Santos Woods MD [address] [address] Physician Blood and Marrow Transplant 05/04/18 Fidel De La Garza MD [address] [place] [address] Consulting Hematology/Oncology 05/15/18 Halima Cohen (Rn), [place] [address] [place], [place] 0527106 Specialty Plastics Heat Welder HOSPICE & PALLIATIVE MEDICINE 05/15/18 Ela Alvarez MD [address] [place], [place] 334421 Hematology/Oncology 04/26/22 Nancie Low, ALICIA [address] [place] [address] Specialty Plastics Heat Welder Hematology/Oncology 04/26/22 Marta Lui, ALICIA [address] [place] [address] Child Psychometrist 02/22/23 Team Status: Inactive Member Role Status Dates Dr. Ovidio Vincent MD Primary Care Provider Active Dr. Adam Bridges DO Attending Provider, Ruddy solares Active Front Office Specialist Relationship Specialty Start Date End Date Ovidio Vincent MD [address] [place], [place] [id number] [phone] PCP - General Family Medicine 03/16/21 Becky Leija MD, [address] [place], [place] 656946 [phone] Physician Radiation Oncology 11/24/17 Tato Castro [address] [place], [place] [phone] Pain Management Anesthesiology 01/30/18 Santos Woods MD [address] [address] Physician Blood and Marrow Transplant 05/04/18 Fidel De La Garza MD [address] [place] [address] Consulting Hematology/Oncology 05/15/18 Halima Cohen ([place]n), [place] [address] [place] [address] Specialty Plastics Heat Welder HOSPICE & PALLIATIVE MEDICINE 05/15/18 Ela Alvarez MD [address] [place], [place] [id number] Hematology/Oncology 04/26/22 Nancie Low RN [address] [facility] [place], [place] [address]671 Specialty Plastics Heat Welder Hematology/Oncology 04/26/22 Marta Lui, ALICIA [address] [place] [address] Child Psychometrist 02/22/23 Front Office Specialist Relationship Specialty Start Date End Date Ovidio Vincent MD [address] [place], [place] [id number] [phone] PCP - General Family Medicine 03/16/21 Becky Leija MD, [address] [place], [place] 806509 [phone] Physician Radiation Oncology 11/24/17 Tato Castro [address] [place] [address] [phone] Pain Management Anesthesiology 01/30/18 Santos Woods MD [address] [address] Physician Blood and Marrow Transplant 05/04/18 Fidel De La Garza MD [address] [place], [place] 5160695 Consulting Hematology/Oncology 05/15/18 Halima [place] ([place]n), [place] [address] [place], [place] 9287506 Specialty Plastics Heat Welder HOSPICE & PALLIATIVE MEDICINE 05/15/18 Ela Alvarez MD [address] [place], [place] [id number] Hematology/Oncology 04/26/22 Nancie Low RN [address] [facility] [place], [place] [phone] Specialty Plastics Heat Welder Hematology/Oncology 04/26/22 Marta Lui RN [address] [place], [place] [phone] Child Psychometrist 02/22/23 Front Office Specialist Relationship Specialty Start Date End Date Ovidio Vincent MD [address] [place], [place] 735741 PCP - General Family Medicine 03/16/21 Becky Leija MD, MD [address] [place], [place] 19436691 Physician Radiation Oncology 11/24/17 Tato Castro [address] [place] [address] [phone] Pain Management Anesthesiology 01/30/18 Santos Woods MD [address]00 [facility] [address] [phone] Physician Blood and Marrow Transplant 05/04/18 Fidel De La Garza MD [address]00 [facility] [place], [place] 0198795 Consulting Hematology/Oncology 05/15/18 Halima Cohen ([place]n), [place] [address] [place] [address] Specialty Plastics Heat Welder HOSPICE & PALLIATIVE MEDICINE 05/15/18 Ela Alvarez MD [address] [place], [place] 51094691 Hematology/Oncology 04/26/22 Nancie Low, ALICIA [address] [place] [address] Specialty Plastics Heat Welder Hematology/Oncology 04/26/22 Marta Lui RN [address] [place] [address] Child Psychometrist 02/22/23 Front Office Specialist Relationship Specialty Start Date End Date Ovidio Vincent MD [address] [place], [place] 193031 PCP - General Family Medicine 03/16/21 Becky Leija MD, [address] [facility] [place], [place] 72732691 Physician Radiation Oncology 11/24/17 Tato Castro [address] [place] [address] [phone] Pain Management Anesthesiology 01/30/18 Santos Woods MD [address] [address] Physician Blood and Marrow Transplant 05/04/18 Fidel De La Garza MD [address] [place] [address] Consulting Hematology/Oncology 05/15/18 Halima Cohen (Rn), [place] [address] [place], [place] 5811306 Specialty Plastics Heat Welder HOSPICE & PALLIATIVE MEDICINE 05/15/18 Ela Alvarez MD [address] [place] [address] Hematology/Oncology 04/26/22 Nancie Low RN [address] [place], [place] 68087691 Specialty Plastics Heat Welder Hematology/Oncology 04/26/22 Marta Lui RN [address] [place] [address] Child Psychometrist 02/22/23 Front Office Specialist Relationship Specialty Start Date End Date Ovidio Vincent MD [address] [place], [place] [id number] PCP - General Family Medicine 03/16/21 Becky Leija MD, MD [address] [place], [place] 76902691 Physician Radiation Oncology 11/24/17 Tato Castro [address] [place] [address] [phone] Pain Management Anesthesiology 01/30/18 Santos Woods MD [address] [place] [address] [address] Physician Blood and Marrow Transplant 05/04/18 Fidel De La Garza MD [address] [place] [address] Consulting Hematology/Oncology 05/15/18 Halima [place] ([place]n), [place] [address] [place], [place] 4272806 Specialty Plastics Heat Welder HOSPICE & PALLIATIVE MEDICINE 05/15/18 Ela Alvarez MD [address] [place] [address] Hematology/Oncology 04/26/22 Nancie Low, ALICIA [address] [place], [place] 77744691 Specialty Plastics Heat Welder Hematology/Oncology 04/26/22 Marta Lui, ALICIA [address] [place] [address] Child Psychometrist 02/22/23 Front Office Specialist Relationship Specialty Start Date End Date Ovidio Vincent MD [address] [place], [place] 806981 PCP - General Family Medicine 03/16/21 Becky Leija MD, MD [address] [place], [place] 864181 Physician Radiation Oncology 11/24/17 Tato Castro [address] [place] [address] Pain Management Anesthesiology 01/30/18 Santos Woods MD 9500 [facility] [address] [address] Physician Blood and Marrow Transplant 05/04/18 Fidel De La Garza MD [address] [place], [place] 2886495 Consulting Hematology/Oncology 05/15/18 Halima Cohen (Rn), [place] [address] [place], [place] 0861606 Specialty Plastics Heat Welder HOSPICE & PALLIATIVE MEDICINE 05/15/18 Ela Alvarez MD [address] [place] [address] Hematology/Oncology 04/26/22 Nancie Low, ALICIA [address] [place], [place] 087341 Specialty Plastics Heat Welder Hematology/Oncology 04/26/22 Marta Lui, ALICIA [address] [place] [address] Child Psychometrist 02/22/23 Front Office Specialist Relationship Specialty Start Date End Date Ovidio Vincent MD [address] [place], [place] 634991 PCP - General Family Medicine 03/16/21 Becky Leija MD, [address] [place], [place] 78853691 Physician Radiation Oncology 11/24/17 Tato Castro [address] [place] [address] [phone] Pain Management Anesthesiology 01/30/18 Santos Woods MD [address] [place] [address] Physician Blood and Marrow Transplant 05/04/18 Fidel De La Garza MD [address] [place], [place] 0395095 Consulting Hematology/Oncology 05/15/18 Halima [place] ([place]), [place] [address] [place] [address] Specialty Plastics Heat Welder HOSPICE & PALLIATIVE MEDICINE 05/15/18 Ela Alvarez MD [address] [place], [place] 10012691 Hematology/Oncology 04/26/22 Nancie Low, ALICIA [address] [place], [place] 77588691 Specialty Plastics Heat Welder Hematology/Oncology 04/26/22 Marta Lui RN [address] [place] [address] Child Psychometrist 02/22/23 Front Office Specialist Relationship Specialty Start Date End Date Ovidio Vincent MD [address] [place], [place] 65084691 PCP - General Family Medicine 03/16/21 Becky Leija MD, MD [address] [place], [place] 59478691 Physician Radiation Oncology 11/24/17 Matthew Tato Frederic [address] [place] [address] [phone] Pain Management Anesthesiology 01/30/18 Santos Woods MD [address] [place] [address] Physician Blood and Marrow Transplant 05/04/18 Fidel De La Garza MD [address] [place], [place] 3082695 Consulting Hematology/Oncology 05/15/18 Halima [place] ([place]n), [place] [address] [place], [place] 3231206 Specialty Plastics Heat Welder HOSPICE & PALLIATIVE MEDICINE 05/15/18 Ela Alvarez MD [address] [place], [place] 313261 Hematology/Oncology 04/26/22 Nancie Low RN [address] [place], [place] 26645691 Specialty Plastics Heat Welder Hematology/Oncology 04/26/22 Marta Lui, ALICIA [address] [place] [address] Child Psychometrist 02/22/23 Front Office Specialist Relationship Specialty Start Date End Date Ovidio Vincent MD [address] [place], [place] 15701691 PCP - General Family Medicine 03/16/21 Becky Leija MD, [address] [place], [place] 626111 Physician Radiation Oncology 11/24/17 Tato Castro [address] [place] [address] Pain Management Anesthesiology 01/30/18 Santos Woods MD 9500 [facility] [address] [place], [place] 4606395 Physician Blood and Marrow Transplant 05/04/18 Fidel De La Garza MD 9500 [facility] [place] [place] 0429595 Consulting Hematology/Oncology 05/15/18 Halima Cohen (Rn), [place] [address] [place] [address] Specialty Plastics Heat Welder HOSPICE & PALLIATIVE MEDICINE 05/15/18 Ela Alvarez MD [address] [place], [place] [id number] Hematology/Oncology 04/26/22 Nancie Low, ALICIA [address] [place], [place] 35645691 Specialty Plastics Heat Welder Hematology/Oncology 04/26/22 Marta Lui, ALICIA [address] [place] [address] Child Psychometrist 02/22/23 Front Office Specialist Relationship Specialty Start Date End Date Ovidio Vincent MD [address] [place], [place] [phone] PCP - General Family Medicine 03/16/21 Becky Leija MD, MD [address] [place], [place] 17015691 Physician Radiation Oncology 11/24/17 Tato Castro [address] [place], [place] 404091 Pain Management Anesthesiology 01/30/18 Santos Woods MD 9085 [facility] [address] [address] [place] [address] Physician Blood and Marrow Transplant 05/04/18 Fidel De La Garza MD [address] [place] [address] Consulting Hematology/Oncology 05/15/18 Halima Cohen (Rn), [place] [address] [place] [address] Specialty Plastics Heat Welder HOSPICE & PALLIATIVE MEDICINE 05/15/18 Ela Alvarez MD [address] [place], [place] 57330691 Hematology/Oncology 04/26/22 Nancie Low, ALICIA [address] [place], [place] 89781691 Specialty Plastics Heat Welder Hematology/Oncology 04/26/22 Marta Lui, ALICIA [address] [place] [address] Child Psychometrist 02/22/23 Front Office Specialist Relationship Specialty Start Date End Date Ovidio Vincent MD [address] [place], [place] [phone] PCP - General Family Medicine 03/16/21 Becky Leija MD, [address] [place], [place] 64780691 Physician Radiation Oncology 11/24/17 Matthew Tato Frederic [address] [place], [place] [phone] Pain Management Anesthesiology 01/30/18 Santos Woods MD 9500 [facility] [address] [address] [place] [address] Physician Blood and Marrow Transplant 05/04/18 Fidel De La Garza MD [address] [place] [address] Consulting Hematology/Oncology 05/15/18 Halima Cohen (Rn), [place] [address] [place] [address] Specialty Plastics Heat Welder HOSPICE & PALLIATIVE MEDICINE 05/15/18 Ela Alvarez MD [address] [place], [place] 16158691 Hematology/Oncology 04/26/22 05/02/23 Nancie Low, ALICIA [address] [place], [place] 09758691 Specialty Plastics Heat Welder Hematology/Oncology 04/26/22 Marta Lui, ALICIA [address] [place] [address] Child Psychometrist 02/22/23 Murray Mooney MD [address] [place], [place] 07210691 Hematology/Oncology 05/03/23 Front Office Specialist Relationship Specialty Start Date End Date Ovidio Vincent MD [address] [place], [place] 55688691 PCP - General Family Medicine 03/16/21 Becky Leija MD, [address] [place], [place] 482351 Physician Radiation Oncology 11/24/17 Krissyjessica Tato Frederic [address] [place] [address] Pain Management Anesthesiology 01/30/18 Santos Woods MD 9500 [facility] [address] [place], [place] 7722195 Physician Blood and Marrow Transplant 05/04/18 Fidel De La Garza MD [address] [place], [place] 6315495 Consulting Hematology/Oncology 05/15/18 Halima [place] ([place]n), [place] [address] [place], [place] 7321706 Specialty Plastics Heat Welder HOSPICE & PALLIATIVE MEDICINE 05/15/18 Nancie Low, ALICIA [address] [place], [place] 41655691 Specialty Plastics Heat Welder Hematology/Oncology 04/26/22 Marta Lui, ALICIA [address] [place] [address] Child Psychometrist 02/22/23 Murray Mooney MD [address] [place] [address] Hematology/Oncology 05/03/23 Front Office Specialist Relationship Specialty Start Date End Date Ovidio Vincent MD [address] [place], [place] 653244 [phone] PCP - General Family Medicine 03/16/21 Becky Leija MD, [address] [place], [place] 980841 Physician Radiation Oncology 11/24/17 Tato Castro [address] [place] [address] Pain Management Anesthesiology 01/30/18 Santos Woods MD 9509 [facility] [address] [place], [place] 0464295 Physician Blood and Marrow Transplant 05/04/18 Fidel De La Garza MD [address] [place] [address] Consulting Hematology/Oncology 05/15/18 Halima Cohen (Rn), [place] [address] [place], [place] 3515506 Specialty Plastics Heat Welder HOSPICE & PALLIATIVE MEDICINE 05/15/18 Nancie Low, ALICIA [address] [place], [place] 96017691 Specialty Plastics Heat Welder Hematology/Oncology 04/26/22 Marta Lui, RN [address] [place] [address] Child Psychometrist 02/22/23 Murray Mooney MD [address] [place] [address] Hematology/Oncology 05/03/23 Front Office Specialist Relationship Specialty Start Date End Date Ovidio Vincent MD [address] [place], [place] [id number] PCP - General Family Medicine 03/16/21 Becky Leija MD, [address] [place], [place] 74159691 Physician Radiation Oncology 11/24/17 Alin Castromo Frederic [address] [place] [address] [phone] Pain Management Anesthesiology 01/30/18 Santos Woods MD 9503 [facility] [address] [address] [place] [address] Physician Blood and Marrow Transplant 05/04/18 Fidel De La Garza MD 0188 [facility] [place], [place] 1764995 Consulting Hematology/Oncology 05/15/18 Halima Cohen (Rn), [place] [address] [place], [place] 2291806 Specialty Plastics Heat Welder HOSPICE & PALLIATIVE MEDICINE 05/15/18 Nancie Low, ALICIA [address] [place], [place] 54686691 Specialty Plastics Heat Welder Hematology/Oncology 04/26/22 Marta Lui, ALICIA [address] [place] [address] Child Psychometrist 02/22/23 Murray Mooney MD [address] [place], [place] 76641691 Hematology/Oncology 05/03/23 Front Office Specialist Relationship Specialty Start Date End Date Ovidio Vincent MD [address] [place], [place] [id number] PCP - General Family Medicine 03/16/21 Becky Leija MD, [address] [place], [place] 27070691 Physician Radiation Oncology 11/24/17 Tato Castro De La Garza [address] [place], [place] 51014691 Pain Management Anesthesiology 01/30/18 Santos Woods MD 9500 [facility] [address] [place], [place] 4644395 Physician Blood and Marrow Transplant 05/04/18 Fidel De La Garza MD 9500 [facility] [place] [place] 2363495 Consulting Hematology/Oncology 05/15/18 Halima Cohen ([place]n), [place] [address] [place], [place] 0142806 Specialty Plastics Heat Welder HOSPICE & PALLIATIVE MEDICINE 05/15/18 Nancie Low RN [address] [place], [place] 02757691 Specialty Plastics Heat Welder Hematology/Oncology 04/26/22 Marta Lui, ALICIA [address] [place] [address] Child Psychometrist 02/22/23 Murray Mooney MD [address] [place], [place] 15566691 Hematology/Oncology 05/03/23 Team Status: Inactive Member Role [...] MD Attending Provider, Referring Pr ovider Active Front Office Specialist Relationship Specialty Start Date End Date Ovidio Vincent MD [address] [place], [place] [id number] PCP - General Family Medicine 03/16/21 Becky Leija MD, MD [address] [place], [place] 69983691 Physician Radiation Oncology 11/24/17 Tato Castro [address] [place], [place] [phone] Pain Management Anesthesiology 01/30/18 Santos Woods MD 950 [facility] [address] [address] Physician Blood and Marrow Transplant 05/04/18 Fidel De La Garza MD [address] [place] [address] Consulting Hematology/Oncology 05/15/18 Halima Cohen (Rn), [place] [address] [place], [place] 6717006 Specialty Plastics Heat Welder HOSPICE & PALLIATIVE MEDICINE 05/15/18 Nancie Low, ALICIA [address] [place], [place] [phone] Specialty Plastics Heat Welder Hematology/Oncology 04/26/22 Marta Lui, ALICIA [address] [place] [address] Child Psychometrist 02/22/23 Murray Mooney MD [address] [place], [place] 35385691 Hematology/Oncology 05/03/23 Front Office Specialist Relationship Specialty Start Date End Date Ovidio Vincent MD [address] [place], [place] 988791 PCP - General Family Medicine 03/16/21 Becky Leija MD, [address] [place], [place] 507451 Physician Radiation Oncology 11/24/17 Tato Castro [address] [place] [address] 542721 Pain Management Anesthesiology 01/30/18 Santos Woods MD 9500 [facility] [address] 9152595 Physician Blood and Marrow Transplant 05/04/18 Fidel De La Garza MD [address] [place] [address] Consulting Hematology/Oncology 05/15/18 Halima [place] ([place]n), [place] [address] [place], [place] 5200406 Specialty Plastics Heat Welder HOSPICE & PALLIATIVE MEDICINE 05/15/18 Nancie Low, ALICIA [address] [place], [place] 61254691 Specialty Plastics Heat Welder Hematology/Oncology 04/26/22 Marta Lui, ALICIA [address] [place] [address] Child Psychometrist 02/22/23 Murray Mooney MD [address] [place], [place] 19389691 Hematology/Oncology 05/03/23 Team Status: Active Member Role Status Dates Dr. Ovidio Vincent MD Primary Care Provider Active Maria Isabel Holden BELT PICKER, BELT PICKER-C Attending Provider Active Team Status: Active Member Role Status Dates Dr. Ovidio Vincent MD Primary Care Provider Active Dr. Patsy Gamble MD Attending Provider Active Front Office Specialist Relationship Specialty Start Date End Date Ovidio Vincent MD [address] [place], [place] 193831 PCP - General Family Medicine 03/16/21 Becky Leija MD, MD [address] [place], [place] 538711 Physician Radiation Oncology 11/24/17 Tato Castro [address] [place] [address] [phone] Pain Management Anesthesiology 01/30/18 Santos Woods MD 9500 [facility] [address] [address] 6805895 Physician Blood and Marrow Transplant 05/04/18 Fidel De La Garza MD [address]509 [facility] [place] [address] Consulting Hematology/Oncology 05/15/18 Halima [place] ([place]n), [place] [address] [place], [place] 4170806 Specialty Plastics Heat Welder HOSPICE & PALLIATIVE MEDICINE 05/15/18 Nancie Low, ALICIA [address] [place], [place] 35677691 Specialty Plastics Heat Welder Hematology/Oncology 04/26/22 Marta Lui, ALICIA [address] [place] [address] Child Psychometrist 02/22/23 Murray Mooney MD [address] [place], [place] 38766691 Hematology/Oncology 05/03/23 Front Office Specialist Relationship Specialty Start Date End Date Ovidio Vincent MD [address] [place], [place] [id number] PCP - General Family Medicine 03/16/21 Becky Leija MD, [address] [place], [place] 10403691 Physician Radiation Oncology 11/24/17 KrissyTato MD [address] [place], [place] [phone] Pain Management Anesthesiology 01/30/18 Santos Woods MD [address] [address] Physician Blood and Marrow Transplant 05/04/18 Fidel De La Garza MD [address] [place], [place] 2459895 Consulting Hematology/Oncology 05/15/18 Halima Cohen (Rn), [place] [address] [place], [place] 0989206 Specialty Plastics Heat Welder HOSPICE & PALLIATIVE MEDICINE 05/15/18 Nancie Low, ALICIA [address] [place], [place] 31802691 Specialty Plastics Heat Welder Hematology/Oncology 04/26/22 Marta Lui, ALICIA [address] [place] [address] Child Psychometrist 02/22/23 Murray Mooney MD [address] [place], [place] 82329691 Hematology/Oncology 05/03/23 Front Office Specialist Relationship Specialty Start Date End Date Ovidio Vincent MD [address] [place], [place] [id number] PCP - General Family Medicine 03/16/21 Becky Leija MD, MD [address] [place], [place] 51814691 Physician Radiation Oncology 11/24/17 Tato Castro MD [address] [place], [place] [phone] Pain Management Anesthesiology 01/30/18 Santos Woods MD [address] 3504695 Physician Blood and Marrow Transplant 05/04/18 Fidel De La Garza MD [address] [place] [place], [place] 8745195 Consulting Hematology/Oncology 05/15/18 Halima Cohen (Rn), [place] [address] [place], [place] 8958506 Specialty Plastics Heat Welder HOSPICE & PALLIATIVE MEDICINE 05/15/18 Nancie Low, ALICIA [address] [place], [place] 10718691 Specialty Plastics Heat Welder Hematology/Oncology 04/26/22 Marta Lui, ALICIA [address] [place] [address] Child Psychometrist 02/22/23 Murray Mooney MD [address] [place], [place] 06688691 Hematology/Oncology 05/03/23 Front Office Specialist Relationship Specialty Start Date End Date Ovidio Vincent MD [address] [place], [place] 141831 PCP - General Family Medicine 03/16/21 Becky Leija MD, MD [address] [place], [place] 148201 Physician Radiation Oncology 11/24/17 Tato Castro MD [address] [place] [address] 190[address] Pain Management Anesthesiology 01/30/18 Satnos Woods MD 9500 [facility] [address] 7429195 Physician Blood and Marrow Transplant 05/04/18 Fidel De La Garza MD [address] [place] [address] Consulting Hematology/Oncology 05/15/18 Halima Cohen ([place]n), [place] [address] [place] [address] Specialty Plastics Heat Welder HOSPICE & PALLIATIVE MEDICINE 05/15/18 Nancie Low, ALICIA [address] [place], [place] 48697691 Specialty Plastics Heat Welder Hematology/Oncology 04/26/22 Marta Lui, ALICIA [address] [place] [address] Child Psychometrist 02/22/23 Murray Mooney MD [address] [place], [place] 347671 Hematology/Oncology 05/03/23 Front Office Specialist Relationship Specialty Start Date End Date Ovidio Vincent MD [address] [place], [place] 639311 PCP - General Family Medicine 03/16/21 Becky Leija MD, [address] [place], [place] 964201 Physician Radiation Oncology 11/24/17 KrissyTato MD [address] [place] [address] 776941 Pain Management Anesthesiology 01/30/18 Santos Woods MD [address] 0229595 Physician Blood and Marrow Transplant 05/04/18 Fidel De La Garza MD [address] [place], [place] 1487895 Consulting Hematology/Oncology 05/15/18 Halima Cohen ([place]n), [place] [address] [place], [place] 6880106 Specialty Plastics Heat Welder HOSPICE & PALLIATIVE MEDICINE 05/15/18 Nancie Low, ALICIA [address] [place], [place] [phone] Specialty Plastics Heat Welder Hematology/Oncology 04/26/22 Marta Lui, RN [address] [place] [address] Child Psychometrist 02/22/23 Murray Mooney MD [address] [place], [place] 41241691 Hematology/Oncology 05/03/23 Front Office Specialist Relationship Specialty Start Date End Date Ovidio Vincent MD [address] [place], [place] [phone] PCP - General Family Medicine 03/16/21 Becky Leija MD, [address] [place], [place] 54440691 Physician Radiation Oncology 11/24/17 Tato Castro MD [address] [place], [place] 60304691 Pain Management Anesthesiology 01/30/18 Santos Woods MD 1284 [facility] [place], [place] 2253995 Physician Blood and Marrow Transplant 05/04/18 Fidel De La Garza MD 7772 [facility] [place], [place] 3974595 Consulting Hematology/Oncology 05/15/18 Halima Cohen ([place]n), [place] [address] [place], [place] 3217506 Specialty Plastics Heat Welder HOSPICE & PALLIATIVE MEDICINE 05/15/18 Nancie Low, RN [address] [place], [place] 41517691 Specialty Plastics Heat Welder Hematology/Oncology 04/26/22 Marta Lui, ALICIA [address] [place] [address] Child Psychometrist 02/22/23 Murray Mooney MD [address] [place], [place] 16468691 Hematology/Oncology 05/03/23 Front Office Specialist Relationship Specialty Start Date End Date Ovidio Vincent MD [address] [place], [place] [phone] PCP - General Family Medicine 03/16/21 Becky Leija MD, MD [address] [place] [address] Physician Radiation Oncology 11/24/17 Tato Castro MD [address] [place] [address] 162881 Pain Management Anesthesiology 01/30/18 Santos Woods MD [address] [place], [place] [id number] Physician Blood and Marrow Transplant 05/04/18 Fidel De La Garza MD [address] [place], [place] 5007295 Consulting Hematology/Oncology 05/15/18 Halima Cohen ([place]n), [place] [address] [place], [place] 5542506 [employer] Heat Welder HOSPICE & PALLIATIVE MEDICINE 05/15/18 Ela Alvarez MD [address] [place] [address] Hematology/Oncology 04/26/22 05/02/23 Nancie Low RN [address] [place] [address] [employer]ty Plastics Heat Welder Hematology/Oncology 04/26/22 Mara Guardado, mail censorChild Psychometrist 10/21/22 02/21/23 Front Office Specialist Relationship Specialty Start Date End Date Ovidio Vincent MD [address] [place] [address] PCP - General Family Medicine 03/16/21 eBcky Leija MD, [address] [place], [place] [phone] Physician Radiation Oncology 11/24/17 Tato Castro MD [address] [place], [place] 019581 Pain Management Anesthesiology 01/30/18 Santos Woods MD 9506 [facility] R[address] [place], [place] [phone] Physician Blood and Marrow Transplant 05/04/18 Fidel De La Garza MD [address] [facility] [place], [place] 9895595 Consulting Hematology/Oncology 05/15/18 Halima [place] (Rn), [place] [address] [place], [place] 6554006 [employer] Heat Welder HOSPICE & PALLIATIVE MEDICINE 05/15/18 Nancie Low, ALICIA [address] [place], [place] [phone] Special[employer] Heat Welder Hematology/Oncology 04/26/22 Marta Lui, RN [address] [place] [address] Child Psychometrist 02/22/23 Murray Mooney MD [address]21 [place], [place] [phone] Hematology/Oncology 05/03/23 Front Office Specialist Relationship Specialty Start Date End Date Ovidio Vincent MD [address] [place], [place] [id number] PCP - General Family Medicine 03/16/21 Becky Leija MD, [address] [place], [place] 14550691 Physician Radiation Oncology 11/24/17 Tato Castro MD [address] [place] [address] [phone] Pain Management Anesthesiology 01/30/18 Santos Woods MD 9509 [facility] [address] [place] [address] Physician Blood and Marrow Transplant 05/04/18 Fidel De La Garza MD 4643 [facility] [place], [place] 2811895 Consulting Hematology/Oncology 05/15/18 Halima Cohen (Rn), [place] [address] [place] [address] [employer] Heat Welder HOSPICE & PALLIATIVE MEDICINE 05/15/18 Nancie Low, ALICIA [address] [place], [place] [phone] Specialty Plastics Heat Welder Hematology/Oncology 04/26/22 Marta Lui, ALICIA [address] [place] [address] Child Psychometrist 02/22/23 Murray Mooney MD [address] [place], [place] [phone] Hematology/Oncology 05/03/23 Front Office Specialist Relationship Specialty Start Date End Date Ovidio Vincent MD [address] [place], [place] [id number] PCP - General Family Medicine 03/16/21 Becky Leija MD, [address] [place], [place] [phone] Physician Radiation Oncology 11/24/17 Tato Castro MD [address] [place], [place] [phone] Pain Management Anesthesiology 01/30/18 Santos Woods MD 9500 [facility] [address] [place], [place] 6498695 Physician Blood and Marrow Transplant 05/04/18 Fidel De La Garza MD [address]00 [place], [place] 5240995 Consulting Hematology/Oncology 05/15/18 Halima [place] ([place]n), [place] [address] [place], [place] 2584606 [employer] Heat Welder HOSPICE & PALLIATIVE MEDICINE 05/15/18 Nancie Low RN [address] [place] [address] Specialty Plastics Heat Welder Hematology/Oncology 04/26/22 Marta Lui, ALICIA [address] [place] [address] Child Psychometrist 02/22/23 Murray Mooney MD [address] [place] [address] Hematology/Oncology 05/03/23 Front Office Specialist Relationship Specialty Start Date End Date Ovidio Vincent MD [address] [place], [place] [phone] PCP - General Family Medicine 03/16/21 Becky Leija MD, [address] [place] [address] Physician Radiation Oncology 11/24/17 Tato Castro MD [address] [place], [place] 640541 Pain Management Anesthesiology 01/30/18 Santos Woods MD 9500 [facility] R[address] [place], [place] 5851695 Physician Blood and Marrow Transplant 05/04/18 Fidel De La Garza MD [address] [place], [place] 2399795 Consulting Hematology/Oncology 05/15/18 Halima Cohen ([place]n), [place] [address] [place], [place] 3506006 Specialty [employer] Heat Welder HOSPICE & PALLIATIVE MEDICINE 05/15/18 Nancie Low, ALICIA [address] [place], [place] 767201 Specialty Plastics Heat Welder Hematology/Oncology 04/26/22 Marta Lui, RN [address] [place], [place] [phone] Child Psychometrist 02/22/23 Murray Mooney MD [address] [place], [place] 603321 Hematology/Oncology 05/03/23 Front Office Specialist Relationship Specialty Start Date End Date Ovidio Vincent MD [address] [place] [address] PCP - General Family Medicine 03/16/21 Becky Leija MD, [address] [place] [address] Physician Radiation Oncology 11/24/17 [facility] [address] [place], [place] [phone] Pain Management Anesthesiology 01/30/18 Santos Woods MD 9500 [facility] R[address] [place], [place] 5549095 Physician Blood and Marrow Transplant 05/04/18 Fidel De La Garza MD [address] [place], [place] 5076195 Consulting Hematology/Oncology 05/15/18 Halima Cohen ([place]n), [place] [address] [place] [address] Specialty Plastics Heat Welder HOSPICE & PALLIATIVE MEDICINE 05/15/18 Ela Alvarez MD [address] [place], [place] [id number] Hematology/Oncology 04/26/22 05/02/23 Nancie Low, ALICIA [address] [place], [place] [phone] Specialty Pl[employer] Heat Welder Hematology/Oncology 04/26/22 Mara Guardado, mail censorChild Psychometrist 10/21/22 02/21/23 Marta Lui, ALICIA [address] [place] [address] Child Psychometrist 02/22/23 Murray Mooney MD [address] [facility] [place], [place] [phone] Hematology/Oncology 05/03/23 Front Office Specialist Relationship Specialty Start Date End Date Ovidio Vincent MD [address] [place], [place] [phone] PCP - General Family Medicine 03/16/21 Becky Leija MD, [address] [place], [place] 011691 Physician Radiation Oncology 11/24/17 Tato Castro MD [address] [place] [address] Pain Management Anesthesiology 01/30/18 Santos Woods MD 9500 [facility] [address] [place], [place] 9599895 Physician Blood and Marrow Transplant 05/04/18 Fidel De La Garza MD 5632 [facility] [place], [place] 2046195 Consulting Hematology/Oncology 05/15/18 Halima [place] ([place]), [place] [address] [place], [place] 8011806 Specialty [employer] Heat Welder HOSPICE & PALLIATIVE MEDICINE 05/15/18 Nancie Low, ALICIA [address] [place], [place] [phone] Specialty Pl[employer] Heat Welder Hematology/Oncology 04/26/22 Marta Lui, RN [address] [place] [address] Child Psychometrist 02/22/23 Murray Mooney MD [address] [place] [address] Hematology/Oncology 05/03/23 Front Office Specialist Relationship Specialty Start Date End Date Ovidio Vincent MD [address] [place], [place] [phone] PCP - General Family Medicine 03/16/21 Becky Leija MD, [address] [place], [place] 106861 Physician Radiation Oncology 11/24/17 Tato Castro MD [address] [place], [place] 56467691 Pain Management Anesthesiology 01/30/18 Santos Woods MD 0791 [facility] [address] [place] [address] Physician Blood and Marrow Transplant 05/04/18 Fidel De La Garza MD [address]69 [place] [address] Consulting Hematology/Oncology 05/15/18 Halima [place] ([place]n), [place] [address] [place], [place] 8487906 Specialty Plastics Heat Welder Hospice & Palliative Medicine 05/15/18 Nancie Low, RN [address] [facility] [place], [place] 90650691 Specialty Pl[employer] Heat Welder Hematology/Oncology 04/26/22 Marta Lui, RN [address] [place] [address] Child Psychometrist 02/22/23 Murray Mooney MD [address] [place], [place] 11264691 Hematology/Oncology 05/03/23 Leno Márquez MD [address] [phone] Orthopedics 08/22/23 Team Status: Inactive Member Role Status Dates Dr. Ovidio Vincent MD Primary Care Provider Active KENDY BURROUGHS , BELT PICKER-C Attending Provider, Grisel solares Active Front Office Specialist Relationship Specialty Start Date End Date Ovidio Vincent MD [address] [place], [place] 151751 PCP - General Family Medicine 03/16/21 Becky Leija MD [address] [place] [address] Physician Radiation Oncology 11/24/17 Tato Castro MD [address] [place], [place] 713371 Pain Management Anesthesiology 01/30/18 Santos Woods MD [address] [phone] Physician Blood and Marrow Transplant 05/04/18 Fidel De La Garza MD [address] [place] [address] Consulting Hematology/Oncology 05/15/18 Halima Cohen (Rn), [place] [address] [place], [place] 4803506 Specialty Plastics Heat Welder Hospice & Palliative Medicine 05/15/18 Nancie Low, ALICIA [address] [place], [place] 61838691 Specialty Plastics Heat Welder Hematology/Oncology 04/26/22 Marta Lui, ALICIA [address] [place], [place] 5032231 Child Psychometrist 02/22/23 Murray Mooney MD [address] [place], [place] 64408691 Hematology/Oncology 05/03/23 Leno Márquez MD [address] [address] Orthopedics 08/22/23 Front Office Specialist Relationship Specialty Start Date End Date Ovidio Vincent MD [address] [place], [place] [phone] PCP - General Family Medicine 03/16/21 Becky Leija MD [address] [place], [place] [phone] Physician Radiation Oncology 11/24/17 KrissyTato MD [address] [place] [address] [phone] Pain Management Anesthesiology 01/30/18 Santos Woods MD [address] 7178295 Physician Blood and Marrow Transplant 05/04/18 Fidel De La Garza MD [address] [place] [address] Consulting Hematology/Oncology 05/15/18 Halima [place] ([place]n), [place] [address] [place] 5273806 Specialty Plastics Heat Welder Hospice & Palliative Medicine 05/15/18 Nancie Low, RN [address] [place], [place] 61621691 Specialty Plastics Heat Welder Hematology/Oncology 04/26/22 Marta Lui, ALICIA [address] [place] [address] Child Psychometrist 02/22/23 Murray Mooney MD [address] [place], [place] 33035691 Hematology/Oncology 05/03/23 Leno Márquez MD [address] [address] Orthopedics 08/22/23 Front Office Specialist Relationship Specialty Start Date End Date Ovidio Vincent MD [address] [place], [place] [phone] PCP - General Family Medicine 03/16/21 Becky Leija MD [address] [place], [place] 65313691 Physician Radiation Oncology 11/24/17 [facility] [address] [place], [place] [phone] Pain Management Anesthesiology 01/30/18 Santso Woods MD [address] [place] [address] Physician Blood and Marrow Transplant 05/04/18 Fidel De La Garza MD [address]00 [facility] [place] [address] Consulting Hematology/Oncology 05/15/18 Halima [place] (Rn), [place] [address] [place], [place] 7286106 Specialty Plastics Heat Welder Hospice & Palliative Medicine 05/15/18 Nancie Low, ALICIA [address] [place], [place] 32047691 Specialty Plastics Heat Welder Hematology/Oncology 04/26/22 Marta Lui, ALICIA [address] [place] [address] Child Psychometrist 02/22/23 Murray Mooney MD [address] [place] [address] Hematology/Oncology 05/03/23 Leno Márquez MD [address] [address] Orthopedics 08/22/23 Loretta Leon, PA-C [address] [place] [address] Pulmonary and Critical Care Medicine 11/24/23 Front Office Specialist Relationship Specialty Start Date End Date Ovidio Vincent MD [address] [place] [address] PCP - General Family Medicine 03/16/21 Becky Leija MD [address] [place] [address] Physician Radiation Oncology 11/24/17 [facility] [address] [place] [address] Pain Management Anesthesiology 01/30/18 Santos Woods MD [address] [phone] Physician Blood and Marrow Transplant 05/04/18 Fidel De La Garza MD [address] [place] [address] Consulting Hematology/Oncology 05/15/18 Halima [place] ([place]), [place] [address] [place] [address] Specialty Plastics Heat Welder Hospice & Palliative Medicine 05/15/18 Nancie Low, ALICIA [address] [place], [place] 831391 Specialty Plastics Heat Welder Hematology/Oncology 04/26/22 Marta Lui, RN [address] [place] [address] Child Psychometrist 02/22/23 Murray Mooney MD [address] [place] [address] Hematology/Oncology 05/03/23 Leno Márquez MD [address] [phone] Orthopedics 08/22/23 Loretta Leon, PA-C [address] [place] [address] Pulmonary and Critical Care Medicine 11/24/23 Front Office Specialist Relationship Specialty Start Date End Date Ovidio Vincent MD [address] [place] [address] PCP - General Family Medicine 03/16/21 Becky Leija MD [address] [place] [address] Physician Radiation Oncology 11/24/17 Tato Castro MD [address] [place] [address] 164771 Pain Management Anesthesiology 01/30/18 Santos Woods MD [address] [place], [place] 8526795 Physician Blood and Marrow Transplant 05/04/18 Fidel De La Garza MD 9500 [facility] [place] 2586295 Consulting Hematology/Oncology 05/15/18 Halima Cohen ([place]n), [place] [address] [place] [address] Specialty Plastics Heat Welder Hospice & Palliative Medicine 05/15/18 Nancie Low, ALICIA [address] [place] [address] Specialty Plastics Heat Welder Hematology/Oncology 04/26/22 Marta Lui, ALICIA [address] [place], [place] 3106831 Child Psychometrist 02/22/23 Murray Mooney MD [address] [place] [address] Hematology/Oncology 05/03/23 Leno Márquez MD [address] [phone] Orthopedics 08/22/23 Loretta Leon, PA-C [address] [place] [address] Pulmonary and Critical Care Medicine 11/24/23 Front Office Specialist Relationship Specialty Start Date End Date Ovidio Vincent MD 1740 [place] [address] PCP - General Family Medicine 03/16/21 Becky Leija MD [address] [place] [address] Physician Radiation Oncology 11/24/17 Tato Castro MD [address] [place], [place] 531331 Pain Management Anesthesiology 01/30/18 Santos Woods MD 9500 [facility] [address] 2449595 Physician Blood and Marrow Transplant 05/04/18 Fidel De La Garza MD [address]00 [place] [address] Consulting Hematology/Oncology 05/15/18 Halima Cohen ([place]), [place] [address] [place] [address] Specialty Plastics Heat Welder Hospice & Palliative Medicine 05/15/18 Nancie Low, ALICIA [address] [place], [place] 39431691 Specialty Plastics Heat Welder Hematology/Oncology 04/26/22 Marta Lui, ALICIA [address] [place] [address] Child Psychometrist 02/22/23 Murray Mooney MD [address] [place], [place] 09488691 Hematology/Oncology 05/03/23 Leno Márquez MD [address] [address] Orthopedics 08/22/23 Loretta Leon, PA-C [address] [place], [place] 33294691 Pulmonary and Critical Care Medicine 11/24/23 Front Office Specialist Relationship Specialty Start Date End Date Ovidio Vincent MD [address] [place] [address] PCP - General Family Medicine 03/16/21 Becky Leija MD [address] [place] [address] Physician Radiation Oncology 11/24/17 KrissyTato MD [address] [place] [address] [phone] Pain Management Anesthesiology 01/30/18 Santos Woods MD [address] [address] Physician Blood and Marrow Transplant 05/04/18 Fidel De La Garza MD 0175 [facility] [place] 5612895 Consulting Hematology/Oncology 05/15/18 Halima [place] ([place]n), [place] [address] [place], [place] 5107406 Specialty Plastics Heat Welder Hospice & Palliative Medicine 05/15/18 Nancie Low, ALICIA [address] [place], [place] [phone] Specialty Plastics Heat Welder Hematology/Oncology 04/26/22 Marta Lui, RN [address] [place] [address] Child Psychometrist 02/22/23 Murray Mooney MD [address] [place], [place] 04147691 Hematology/Oncology 05/03/23 Leno Márquez MD [address] [address] Orthopedics 08/22/23 Loretta Leon PA-C [address] [place], [place] 08075691 Pulmonary and Critical Care Medicine 11/24/23 Front Office Specialist Relationship Specialty Start Date End Date Ovidio Vincent MD [address] [place], [place] [phone] PCP - General Family Medicine 03/16/21 Becky Leija MD [address] [place], [place] 95178691 Physician Radiation Oncology 11/24/17 Tato Castro MD [address] [place] [address] [phone] Pain Management Anesthesiology 01/30/18 Santos Woods MD 9500 [facility] [address] [address] Physician Blood and Marrow Transplant 05/04/18 Fidel De La Garza MD [address] [facility] [place] [address] Consulting Hematology/Oncology 05/15/18 Halima [place] (Rn), [place] [address] [place] [address] Specialty Plastics Heat Welder Hospice & Palliative Medicine 05/15/18 Nancie Low, ALICIA [address] [place], [place] 56429691 Specialty Plastics Heat Welder Hematology/Oncology 04/26/22 Marta Lui, ALICIA [address] [place] [address] Child Psychometrist 02/22/23 Murray Mooney MD [address] [place] [address] Hematology/Oncology 05/03/23 Leno Márquez MD [address] [place] [address] Orthopedics 08/22/23 Loretta Leon, PA-C [address] [place] [address] Pulmonary and Critical Care Medicine 11/24/23 Front Office Specialist Relationship Specialty Start Date End Date Ovidio Vincent MD [address] [place] [address] PCP - General Family Medicine 03/16/21 Becky Leija MD [address] [place] [address] Physician Radiation Oncology 11/24/17 KrissyTato MD [address] [place] [address] Pain Management Anesthesiology 01/30/18 Santos Woods MD [address] [address] Physician Blood and Marrow Transplant 05/04/18 Fidel De La Garza MD [address] [place], [place] 8960295 Consulting Hematology/Oncology 05/15/18 Halima Cohen (Rn), [place] [address] [place] [address] Specialty Plastics Heat Welder Hospice & Palliative Medicine 05/15/18 Nancie Low, ALICIA [address] [place], [place] 85319691 Specialty Plastics Heat Welder Hematology/Oncology 04/26/22 Marta Lui, ALICIA [address] [place] [address] Child Psychometrist 02/22/23 Murray Mooney MD [address] [place] [address] Hematology/Oncology 05/03/23 Leno Márquez MD [address] [phone] Orthopedics 08/22/23 Loretta Leon, PA-C [address] [place] [address] Pulmonary and Critical Care Medicine 11/24/23 Front Office Specialist Relationship Specialty Start Date End Date Ovidio Vincent MD [address] [place], [place] 713158 [phone] PCP - General Family Medicine 03/16/21 Becky Leija MD [address]21 [place] [address] Physician Radiation Oncology 11/24/17 Tato Castro MD [address] [place], [place] 658301 Pain Management Anesthesiology 01/30/18 Santos Woods MD [address] [place], [place] 8103195 Physician Blood and Marrow Transplant 05/04/18 Fidel De La Garza MD 9500 [facility] [place], [place] 1153395 Consulting Hematology/Oncology 05/15/18 Halima Cohen (Rn), [place] [address] [place] [address] Specialty Plastics Heat Welder Hospice & Palliative Medicine 05/15/18 Nancie Low, ALICIA [address] [place], [place] 883117 [phone] Specialty Plastics Heat Welder Hematology/Oncology 04/26/22 Marta Lui, ALICIA [address] [place], [place] [phone] Child Psychometrist 02/22/23 Murray Mooney MD [address] [place] [address] Hematology/Oncology 05/03/23 Leno Márquez MD [address] [phone] Orthopedics 08/22/23 Loretta Leon, PA-C [address] [place] [address] Pulmonary and Critical Care Medicine 11/24/23 Front Office Specialist Relationship Specialty Start Date End Date Ovidio Vincent MD 1740 [place] [address] PCP - General Family Medicine 03/16/21 Becky Leija MD [address] [place] [address] Physician Radiation Oncology 11/24/17 Tato Castro MD [address] [place], [place] 554181 Pain Management Anesthesiology 01/30/18 Santos Woods MD 9500 [facility] R[address] [place], [place] 1588995 Physician Blood and Marrow Transplant 05/04/18 Fidel De La Garza MD [address]00 [place], [place] 9702395 Consulting Hematology/Oncology 05/15/18 Halima Cohen (Rn), [place] [address] [place] [address] Specialty Plastics Heat Welder Hospice & Palliative Medicine 05/15/18 Nancie Low, ALICIA [address] [place], [place] [phone] Specialty Plastics Heat Welder Hematology/Oncology 04/26/22 Marta Lui, ALICIA [address] [place], [place] 8619731 Child Psychometrist 02/22/23 Murray Mooney MD [address] [place], [place] 19815691 Hematology/Oncology 05/03/23 Leno Márquez MD [address] [address] Orthopedics 08/22/23 Loretta Leon, PA-C [address] [place], [place] 924881 Pulmonary and Critical Care Medicine 11/24/23 Front Office Specialist Relationship Specialty Start Date End Date Ovidio Vincent MD [address] [place], [place] 917111 PCP - General Family Medicine 03/16/21 Becky Leija MD [address] [place] [address] Physician Radiation Oncology 11/24/17 Tato Castro MD [address] [place] [address] [phone] Pain Management Anesthesiology 01/30/18 Santos Woods MD [address] [address] Physician Blood and Marrow Transplant 05/04/18 Fidel De La Garza MD [address] [place], [place] 5378395 Consulting Hematology/Oncology 05/15/18 Halima Cohen (Rn), [place] [address] [place], [place] 4301306 Specialty Plastics Heat Welder Hospice & Palliative Medicine 05/15/18 Nancie Low, ALICIA [address] [place], [place] 94732691 Specialty Plastics Heat Welder Hematology/Oncology 04/26/22 Marta Lui, RN [address] [place] [address] Child Psychometrist 02/22/23 Murray Mooney MD [address] [place], [place] 96009691 Hematology/Oncology 05/03/23 Leno Márquez MD [address] [address] Orthopedics 08/22/23 Loretta Leon, MATTYC [address] [place], [place] 98915691 Pulmonary and Critical Care Medicine 11/24/23 Front Office Specialist Relationship Specialty Start Date End Date Ovidio Vincent MD [address] [place], [place] [id number] PCP - General Family Medicine 03/16/21 Becky Leija MD [address] [place], [place] 26760691 Physician Radiation Oncology 11/24/17 Tato Castro MD [address] [place] [address] [phone] Pain Management Anesthesiology 01/30/18 Santos Woods MD 9500 [facility] [place] [address] Physician Blood and Marrow Transplant 05/04/18 Fidel De La Garza MD [address] [place] [address] Consulting Hematology/Oncology 05/15/18 Halima Cohen ([place]n), [place] [address] [place] [address] Specialty Plastics Heat Welder Hospice & Palliative Medicine 05/15/18 Nancie Low, ALICIA [address] [place], [place] [phone] Specialty Plastics Heat Welder Hematology/Oncology 04/26/22 Marta Lui, ALICIA [address] [place] [address] Child Psychometrist 02/22/23 Murray Mooney MD [address] [place] [address] Hematology/Oncology 05/03/23 Leno Márquez MD [address] [phone] Orthopedics 08/22/23 Loretta Leon, PA-C [address] [place] [address] Pulmonary and Critical Care Medicine 11/24/23 Front Office Specialist Relationship Specialty Start Date End Date Ovidio Vincent MD [address] [place], [place] 419301 PCP - General Family Medicine 03/16/21 Becky Leija MD [address] [place] [address] Physician Radiation Oncology 11/24/17 KrissyTato MD [address] [place] [address] Pain Management Anesthesiology 01/30/18 Santos Woods MD [address] [address] Physician Blood and Marrow Transplant 05/04/18 Fidel De La Garza MD [address] [place] [place], [place] 2109395 Consulting Hematology/Oncology 05/15/18 Halima [place] (Rn), [place] [address] [place] [address] Specialty Plastics Heat Welder Hospice & Palliative Medicine 05/15/18 Nancie Low, ALICIA [address] [place], [place] 678141 Specialty Plastics Heat Welder Hematology/Oncology 04/26/22 Marta Lui, ALICIA [address] [place] [address] Child Psychometrist 02/22/23 Murray Mooney MD [address] [place] [address] Hematology/Oncology 05/03/23 Leno Márquez MD [address] [phone] Orthopedics 08/22/23 Loretta Leon, PA-C [address] [place] [address] Pulmonary and Critical Care Medicine 11/24/23 Front Office Specialist Relationship Specialty Start Date End Date Ovidio Vincent MD [address] [place] [address] PCP - General Family Medicine 03/16/21 Becky Leija MD [address]21 [place] [address] Physician Radiation Oncology 11/24/17 Tato Castro MD [address] [place], [place] 450531 Pain Management Anesthesiology 01/30/18 Santos Woods MD [address] [place], [place] 3782495 Physician Blood and Marrow Transplant 05/04/18 Fidel De La Garza MD 9509 [facility] [place], [place] 7894495 Consulting Hematology/Oncology 05/15/18 Halima [place] ([place]), [place] [address] [place] [address] Specialty Plastics Heat Welder Hospice & Palliative Medicine 05/15/18 Nancie Low, ALICIA [address] [facility] [place] [address]85313 [phone] Specialty Plastics Heat Welder Hematology/Oncology 04/26/22 Marta Lui, ALICIA [address] [place], [place] [phone] Child Psychometrist 02/22/23 Murray Mooney MD [address] [place], [place] 948967 [phone] Hematology/Oncology 05/03/23 Leno Márquez MD [address] [phone] Orthopedics 08/22/23 Loretta Leon, PA-C [address] [place] [address] Pulmonary and Critical Care Medicine 11/24/23 Front Office Specialist Relationship Specialty Start Date End Date Ovidio Vincent MD 1740 [place] [address] PCP - General Family Medicine 03/16/21 Becky Leija MD [address] [place] [address] Physician Radiation Oncology 11/24/17 Tato Castro MD [address] [place], [place] 689821 Pain Management Anesthesiology 01/30/18 Santos Woods MD 9500 [facility] [place], [place] [id number] Physician Blood and Marrow Transplant 05/04/18 Fidel De La Garza MD [address] [place], [place] [phone] Consulting Hematology/Oncology 05/15/18 Halima [place] ([place]), [place] [address] [place] [address] Specialty Plastics Heat Welder Hospice & Palliative Medicine 05/15/18 Nancie Low, ALICIA [address] [place], [place] [phone] Specialty Plastics Heat Welder Hematology/Oncology 04/26/22 Marta Lui, ALICIA [address] [place], [place] [id number] Child Psychometrist 02/22/23 Murray Mooney MD [address] [place], [place] [phone] Hematology/Oncology 05/03/23 Leno Márquez MD [address] [address] Orthopedics 08/22/23 Loretta Leon PA-C [address] [place], [place] 809511 Pulmonary and Critical Care Medicine 11/24/23 Front Office Specialist Relationship Specialty Start Date End Date vOidio Vincent MD [address] [place], [place] 805901 PCP - General Family Medicine 03/16/21 Becky Leija MD [address] [place] [address] Physician Radiation Oncology 11/24/17 KrissyTato MD [address] [place], [place] 670991 Pain Management Anesthesiology 01/30/18 Santos Woods MD [address] [phone] Physician Blood and Marrow Transplant 05/04/18 Fidel De La Garza MD [address] [place], [place] 4664995 Consulting Hematology/Oncology 05/15/18 Halima [place] ([place]), [place] [address] [place], [place] 1382506 Specialty Plastics Heat Welder Hospice & Palliative Medicine 05/15/18 Nancie Low, ALICIA [address] [place], [place] [phone] Specialty Plastics Heat Welder Hematology/Oncology 04/26/22 Marta Lui, RN [address] [place] [address] Child Psychometrist 02/22/23 Murray Mooney MD [address] [place], [place] [phone] Hematology/Oncology 05/03/23 Leno Márquez MD [address] [address] Orthopedics 08/22/23 Loretta Leon, PAAndriyC [address] [place], [place] 79298691 Pulmonary and Critical Care Medicine 11/24/23 Front Office Specialist Relationship Specialty Start Date End Date Ovidio Vincent MD [address] [place], [place] [id number] PCP - General Family Medicine 03/16/21 Becky Leija MD [address] [place], [place] [phone] Physician Radiation Oncology 11/24/17 Tato Castro MD [address] [place] [address] [id number] Pain Management Anesthesiology 01/30/18 Santos Woods MD 9500 [facility] [place], [place] 6812595 Physician Blood and Marrow Transplant 05/04/18 Fidel De La Garza MD [address] [place] [address] Consulting Hematology/Oncology 05/15/18 Halima [place] ([place]n), [place] [address] [place] [address] Specialty Plastics Heat Welder Hospice & Palliative Medicine 05/15/18 Nancie Low, ALICIA [address] [place], [place] 60587691 Specialty Plastics Heat Welder Hematology/Oncology 04/26/22 Marta Lui, ALICIA [address] [place] [address] Child Psychometrist 02/22/23 Murray Mooney MD [address] [place] [address] Hematology/Oncology 05/03/23 Leno Márquez MD [address] [phone] Orthopedics 08/22/23 Loretta Leon, PA-C [address] [place] [address] Pulmonary and Critical Care Medicine 11/24/23 Front Office Specialist Relationship Specialty Start Date End Date Ovidio Vincent MD [address] [place] [address] PCP - General Family Medicine 03/16/21 Becky Leija MD [address] [place] [address] Physician Radiation Oncology 11/24/17 KrissyTato MD [address] [place] [address] Pain Management Anesthesiology 01/30/18 Santos Woods MD [address] [address] Physician Blood and Marrow Transplant 05/04/18 Fidel De La Garza MD [address] [place] [address] Consulting Hematology/Oncology 05/15/18 Halima [place] ([place]n), [place] [address] [place] [address] Specialty Plastics Heat Welder Hospice & Palliative Medicine 05/15/18 Nargis Ortega, RN [address] [place] [phone] Child Psychometrist 05/27/21 10/20/22 Ela Alvarez MD [address] [place] [phone] Hematology/Oncology 04/26/22 05/02/23 Nancie Low, ALICIA [address] [place], [place] 769061 Specialty Plastics Heat Welder Hematology/Oncology 04/26/22 Front Office Specialist Relationship Specialty Start Date End Date Ovidio Vincent MD [address] [place], [place] [phone] PCP - General Family Medicine 03/16/21 Becky Leija MD [address] [place], [place] 081781 Physician Radiation Oncology 11/24/17 KrissyTato MD [address] [place] [address] 235951 Pain Management Anesthesiology 01/30/18 Santos Woods MD [address] [place] [address] Physician Blood and Marrow Transplant 05/04/18 Fidel De La Garza MD [address] [place], [place] 5686395 Consulting Hematology/Oncology 05/15/18 Halima [place] ([place]n), [place] [address] [place] [address] Specialty Plastics Heat Welder Hospice & Palliative Medicine 05/15/18 Nancie Low, ALICIA [address] [place], [place] 004281 Specialty Plastics Heat Welder Hematology/Oncology 04/26/22 Marta Lui, ALICIA [address] [place] [address] Child Psychometrist 02/22/23 Murray Mooney MD [address] [place] [address] Hematology/Oncology 05/03/23 Leno Márquez MD [address] [phone] Orthopedics 08/22/23 Loretta Leon PAAndriyC [address] [place] [address] Pulmonary and Critical Care Medicine 11/24/23 Front Office Specialist Relationship Specialty Start Date End Date Ovidio Vincent MD [address] [place] [address] PCP - General Family Medicine 03/16/21 Becky Leija MD [address] [place] [address] Physician Radiation Oncology 11/24/17 Tato Castro MD [address] [place], [place] 990091 Pain Management Anesthesiology 01/30/18 Santos Woods MD [address] [place], [place] 5726495 Physician Blood and Marrow Transplant 05/04/18 Fidel De La Garza MD 9500 [facility] [place] [place] 1710395 Consulting Hematology/Oncology 05/15/18 Halima Cohen ([place]n), [place] [address] [place] [address] Specialty Plastics Heat Welder Hospice & Palliative Medicine 05/15/18 Nancie Low, ALICIA [address] [place] [address] Specialty Plastics Heat Welder Hematology/Oncology 04/26/22 Marta Lui, ALICIA [address] [place], [place] [phone] Child Psychometrist 02/22/23 Murray Mooney MD [address] [place] [address] Hematology/Oncology 05/03/23 Leno Márquez MD [address] [phone] Orthopedics 08/22/23 Loretta Leon, PA-C [address] [place] [address] Pulmonary and Critical Care Medicine 11/24/23 Front Office Specialist Relationship Specialty Start Date End Date Ovidio Vincent MD [address] [place] [address] PCP - General Family Medicine 03/16/21 Becky Leija MD [address] [place] [address] Physician Radiation Oncology 11/24/17 Tato Castro MD [address] [place], [place] 910531 Pain Management Anesthesiology 01/30/18 Santos Woods MD [address]00 [facility] [address] 0836295 Physician Blood and Marrow Transplant 05/04/18 Fidel De La Garza MD [address] [place] [address] Consulting Hematology/Oncology 05/15/18 Halima [place] ([place]n), [place] [address] [place] 1900806 Specialty Plastics Heat Welder Hospice & Palliative Medicine 05/15/18 Nancie Low, ALICIA [address] [place], [place] [phone] Specialty Plastics Heat Welder Hematology/Oncology 04/26/22 Marta Lui, ALICIA [address] [place] [address] Child Psychometrist 02/22/23 Murray Mooney MD [address] [place], [place] 46775691 Hematology/Oncology 05/03/23 Leno Márquez MD [address] [address] Orthopedics 08/22/23 Loretta Leon, PA-C [address] [place], [place] 77859691 Pulmonary and Critical Care Medicine 11/24/23 Front Office Specialist Relationship Specialty Start Date End Date Ovidio Vincent MD [address] [place], [place] 909501 PCP - General Family Medicine 03/16/21 Becky Leija MD [address] [facility] [place], [place] [phone] Physician Radiation Oncology 11/24/17 KrissyTato MD [address] [place] [address] [phone] Pain Management Anesthesiology 01/30/18 Santos Woods MD [address] [address] Physician Blood and Marrow Transplant 05/04/18 Fidel De La Garza MD 8850 [facility] [place], [place] 2820895 Consulting Hematology/Oncology 05/15/18 Halima [place] ([place]n), [place] [address] [place], [place] 7847806 Specialty Plastics Heat Welder Hospice & Palliative Medicine 05/15/18 Nancie Low, ALICIA [address] [facility] [place], [place] [phone] Specialty Plastics Heat Welder Hematology/Oncology 04/26/22 Marta Lui, RN [address] [place] [address] Child Psychometrist 02/22/23 Murray Mooney MD [address] [place], [place] 01831691 Hematology/Oncology 05/03/23 Leno Márquez MD [address] [address] Orthopedics 08/22/23 Loretta Leon PA-C [address] [place], [place] 48503691 Pulmonary and Critical Care Medicine 11/24/23 Front Office Specialist Relationship Specialty Start Date End Date Ovidio Vincent MD [address] [place], [place] [phone] PCP - General Family Medicine 03/16/21 Becky Leija MD [address] [place], [place] 76760691 Physician Radiation Oncology 11/24/17 Tato Castro MD [address] [place] [address] [phone] Pain Management Anesthesiology 01/30/18 Santos Woods MD [address]00 [facility] [address] [address] Physician Blood and Marrow Transplant 05/04/18 Fidel De La Garza MD [address] [place] [address] Consulting Hematology/Oncology 05/15/18 Halima [place] ([place]n), [place] [address] [place], [place] 3046506 Specialty Plastics Heat Welder Hospice & Palliative Medicine 05/15/18 Nancie Low, ALICIA [address] [place], [place] 57424691 Specialty Plastics Heat Welder Hematology/Oncology 04/26/22 Marta Lui, ALICIA [address] [place] [address] Child Psychometrist 02/22/23 Murray Mooney MD [address] [place] [address] Hematology/Oncology 05/03/23 Leno Márquez MD [address] [address] Orthopedics 08/22/23 Loretta Leon PAAndriyC [address] [place] [address] Pulmonary and Critical Care Medicine 11/24/23 Front Office Specialist Relationship Specialty Start Date End Date Ovidio Vincent MD [address] [place] [address] PCP - General Family Medicine 03/16/21 Becky Leija MD [address] [place] [address] Physician Radiation Oncology 11/24/17 [facility] [address] [place] [address] Pain Management Anesthesiology 01/30/18 Santos Woods MD [address] [place] [address] Physician Blood and Marrow Transplant 05/04/18 Fidel De La Garza MD [address] [place] [address] Consulting Hematology/Oncology 05/15/18 Halima [place] ([place]n), [place] [address] [place] [address] Specialty Plastics Heat Welder Hospice & Palliative Medicine 05/15/18 Nancie Low, ALICIA [address] [place] [address] Specialty Plastics Heat Welder Hematology/Oncology 04/26/22 Murray Mooney MD [address] [place] [address] Hematology/Oncology 05/03/23 Leno Márquez MD [address] [address] Orthopedics 08/22/23 Loretta Leon PA-C [address] [place] [address] Pulmonary and Critical Care Medicine 11/24/23 Front Office Specialist Relationship Specialty Start Date End Date Ovidio Vincent MD [address] [place] [address] PCP - General Family Medicine 03/16/21 Becky Leija MD [address] [place] [address] Physician Radiation Oncology 11/24/17 KrissyTato MD [address] [place] [address] Pain Management Anesthesiology 01/30/18 Santos Woods MD [address] [place] [address] Physician Blood and Marrow Transplant 05/04/18 Fidel De La Garza MD [address] [place] [address] Consulting Hematology/Oncology 05/15/18 Halima Cohen (Rn), RN [address] [place], [place] 5023706 Specialty Plastics Heat Welder Hospice & Palliative Medicine 05/15/18 Nancie Low, ALICIA [address] [place] [address] Specialty Plastics Heat Welder Hematology/Oncology 04/26/22 Murray Mooney MD [address] [place] [address] Hematology/Oncology 05/03/23 Leno Márquez MD [address] [phone] Orthopedics 08/22/23 Loretta Leon, PA-C [address] [place] [address] Pulmonary and Critical Care Medicine 11/24/23 Front Office Specialist Relationship Specialty Start Date End Date Ovidio Vincent MD [address] [place] [address] PCP - General Family Medicine 03/16/21 Becky Leija MD [address] [place] [address] Physician Radiation Oncology 11/24/17 Tato Castro MD [address] [place] [address] Pain Management Anesthesiology 01/30/18 Santos Woods MD [address] [place] [address] Physician Blood and Marrow Transplant 05/04/18 Fidel De La Garza MD [address] [place] [place], [place] 7651795 Consulting Hematology/Oncology 05/15/18 Halima Cohen (Rn), [place] [address] [place] [address] Specialty Plastics Heat Welder Hospice & Palliative Medicine 05/15/18 Nancie Low, ALICIA [address] [place], [place] 46284691 Specialty Plastics Heat Welder Hematology/Oncology 04/26/22 Murray Mooney MD [address] [place], [place] 702861 Hematology/Oncology 05/03/23 Leno Márquez MD [address] [phone] Orthopedics 08/22/23 Loretta Leon PAAndriyC [address] [place], [place] 545221 Pulmonary and Critical Care Medicine 11/24/23 Rebecca Jansen APRN.BACK TENDER PAPER MACHINE [address] [place], [place] 246332 [phone] Statistician Theoretical Family Medicine 08/24/24 Leslye Winter PA-C [address] [place] [address] Statistician Theoretical Family Medicine 08/24/24 Front Office Specialist Relationship Specialty Start Date End Date Ovidio Vincent MD [address] [place] [address] PCP - General Family Medicine 03/16/21 Becky Leija MD [address] [place], [place] 726571 Physician Radiation Oncology 11/24/17 Tato Castro MD [address] [place] [address] 432091 Pain Management Anesthesiology 01/30/18 Santos Woods MD [address] 4172495 Physician Blood and Marrow Transplant 05/04/18 Fidel De La Garza MD [address] [place] [address] Consulting Hematology/Oncology 05/15/18 Halima [place] ([place]n), [place] [address] [place], [place] 9141906 Specialty Plastics Heat Welder Hospice & Palliative Medicine 05/15/18 Nancie Low, ALICIA [address] [place], [place] [phone] Specialty Plastics Heat Welder Hematology/Oncology 04/26/22 Murray Mooney MD [address] [place], [place] 16140691 Hematology/Oncology 05/03/23 Leno Márquez MD [address] [phone] Orthopedics 08/22/23 Loretta Leon, PA-C [address] [place], [place] 80565691 Pulmonary and Critical Care Medicine 11/24/23 Rebecca Jansen APRN.BACK TENDER PAPER MACHINE [address] [place], [place] [phone] Statistician Theoretical [facility] 08/24/24 Leslye Winter PA-C [address] [place] [address] [phone] Statistician Theoretical [facility] 08/24/24 Front Office Specialist Relationship Specialty [place] [address] [place] [address] [phone] PCP - General Family Medicine 03/16/21 Becky Leija MD [address] [place], [place] [phone] Physician Radiation Oncology 11/24/17 KrissyTato MD [address] [place] [address] [phone] Pain Management Anesthesiology 01/30/18 Santos Woods MD [address] [address] Physician Blood and Marrow Transplant 05/04/18 Fidel De La Garza MD [address] [place] [address] Consulting Hematology/Oncology 05/15/18 Halima [place] ([place]), [place] [address] [place] [address] Specialty Plastics Heat Welder Hospice & Palliative Medicine 05/15/18 Nancie Low, ALICIA [address] [place] [address] Specialty Plastics Heat Welder Hematology/Oncology 04/26/22 Murray Mooney MD [address] [place] [address] Hematology/Oncology 05/03/23 Leno Márquez MD [address] [phone] Orthopedics 08/22/23 Loretta Leon PA-C [address] [place] [address] Pulmonary and Critical Care Medicine 11/24/23 Rebecca Jansen, ESSENCE.BACK TENDER PAPER MACHINE [address] [place] [address] [phone] Statistician Theoretical [facility] 08/24/24 Leslye Winter PA-C [address] [place] [address] 307145 [phone] Statistician Theoretical [facility] 08/24/24 Front Office Specialist Relationship Specialty [place] [address] [place] [address] 083863 [phone] PCP - General Family Medicine 03/16/21 Becky Leija MD [address] [place] [address] Physician Radiation Oncology 11/24/17 Tato Castro MD [address] [place] [address] Pain Management Anesthesiology 01/30/18 Santos Woods MD 9500 [facility] [address] [place], [place] 3058895 Physician Blood and Marrow Transplant 05/04/18 Fidel De La Garza MD [address] [place], [place] 6325495 Consulting Hematology/Oncology 05/15/18 Halima Cohen ([place]n), [place] [address] [place] [address] Specialty Plastics Heat Welder Hospice & Palliative Medicine 05/15/18 Nancie Low, ALICIA [address] [place], [place] 52332691 Specialty Plastics Heat Welder Hematology/Oncology 04/26/22 Murray Mooney MD [address] [facility] [place], [place] 379911 Hematology/Oncology 05/03/23 Leno Márquez MD [address] [phone] Orthopedics 08/22/23 Loretta Leon PA-C [address] [place] [address] Pulmonary and Critical Care Medicine 11/24/23 Rebecca Jansen APRN.BACK TENDER PAPER MACHINE [address] [place], [place] [phone] Statistician Theoretical Family [facility] 08/24/24 Leslye Winter PA-C [address] [place], [place] [phone] Statistician Theoretical Family Medicine 08/24/24 Front Office Specialist Relationship Specialty Start Date End Date Ovidio Vincent MD [address] [place], [place] 641871 PCP - General Family Medicine 03/16/21 Becky Leija MD [address] [place], [place] [phone] Physician Radiation Oncology 11/24/17 Tato Castro MD [address] [place], [place] 357931 Pain Management Anesthesiology 01/30/18 Santos Woods MD 9504 [facility] [address] 5943195 Physician Blood and Marrow Transplant 05/04/18 Fidel De La Garza MD [address] [place], [place] 4029995 Consulting Hematology/Oncology 05/15/18 Halima Cohen ([place]n), [place] [address] [place], [place] 7786206 Specialty Plastics Heat Welder Hospice & Palliative Medicine 05/15/18 Nanice Low, ALICIA [address] [place], [place] 29717691 Specialty Plastics Heat Welder Hematology/Oncology 04/26/22 Murray Mooney MD [address] [place], [place] 10020691 Hematology/Oncology 05/03/23 Leno Márquez MD [address] [address] Orthopedics 08/22/23 Loretta Leon PA-C [address] [place], [place] 062621 Pulmonary and Critical Care Medicine 11/24/23 Rebecca Jansen APRN.BACK TENDER PAPER MACHINE [address] [place], [place] [phone] Statistician Theoretical [facility] 08/24/24 Leslye Winter PA-C [address] [place], [place] 561351 Statistician Theoretical [facility] 08/24/24 Front Office Specialist Relationship Specialty Start Date End Date Ovidio Vincent MD [address] [place], [place] [phone] PCP - General Family Medicine 03/16/21 Becky Leija MD [address] [place], [place] 429051 Physician Radiation Oncology 11/24/17 KrissyTato MD [address] [place] [address] 332151 Pain Management Anesthesiology 01/30/18 Santos Woods MD [address] [address] Physician Blood and Marrow Transplant 05/04/18 Fidel De La Garza MD [address] [place] [address] Consulting Hematology/Oncology 05/15/18 Halima [place] ([place]n), [place] [address] [place] [address] Specialty Plastics Heat Welder Hospice & Palliative Medicine 05/15/18 Nancie Low, ALICIA [address] [place], [place] 640081 Specialty Plastics Heat Welder Hematology/Oncology 04/26/22 Murray Mooney MD [address] [place] [address] Hematology/Oncology 05/03/23 Leno Márquez MD [address] [phone] Orthopedics 08/22/23 Loretta Leon PA-C [address] [place] [address] Pulmonary and Critical Care Medicine 11/24/23 Rebecca Jansen, ESSENCE.BACK TENDER PAPER MACHINE [address] [place], [place] 583707 [phone] Statistician Theoretical [facility] 08/24/24 Leslye Winter PA-C [address] [place] [address] [facility] 08/24/24 Front Office Specialist Relationship Specialty Start Date End Date Ovidio Vincent MD [address] [place] [address] PCP - General Family Medicine 03/16/21 Becky Leija MD [address] [place] [address] Physician Radiation Oncology 11/24/17 Tato Castro MD [address] [place] [address] [phone] Pain Management Anesthesiology 01/30/18 Santos Woods MD 9500 [facility] [address] [place], [place] 2115195 Physician Blood and Marrow Transplant 05/04/18 Fidel De La Garza MD [address]00 [place], [place] 0125595 Consulting Hematology/Oncology 05/15/18 Halima [place] ([place]), [place] [address] [place], [place] 2601706 Specialty Plastics Heat Welder Hospice & Palliative Medicine 05/15/18 Nancie Low, ALICIA [address] E [facility] [place] [phone] Specialty Plastics Heat Welder Hematology/Oncology 04/26/22 Murray Mooney MD [address] [place] [address] Hematology/Oncology 05/03/23 Leno Márquez MD [address] [phone] Orthopedics 08/22/23 Loretta Leon PA-C [address] [place] [address] Pulmonary and Critical Care Medicine 11/24/23 Rebecca Jansen APRN.BACK TENDER PAPER MACHINE [facility] [place] [address] Statistician Theoretical Family [facility] 08/24/24 Leslye Winter PA-C [address] [place] [address] Statistician Theoretical Family [facility] 08/24/24 Front Office Specialist Relationship Specialty Start Date End Date Ovidio Vincent MD [address] [place], [place] 312781 PCP - General Family Medicine 03/16/21 Becky Leija MD [address] [place] [address] Physician Radiation Oncology 11/24/17 KrissyTato MD [address] [place] [address] [phone] Pain Management Anesthesiology 01/30/18 Santos Woods MD [address] [phone] Physician Blood and Marrow Transplant 05/04/18 Fidel De La Garza MD [address] [place] [address] Consulting Hematology/Oncology 05/15/18 Halima [place] ([place]), [place] [address] [place] 5725706 Specialty Plastics Heat Welder Hospice & Palliative Medicine 05/15/18 Nancie Low, ALICIA [address] [place], [place] 56519691 Specialty Plastics Heat Welder Hematology/Oncology 04/26/22 Murray Mooney MD [address] [place], [place] [phone] Hematology/Oncology 05/03/23 Leno Márquez MD [address] [phone] Orthopedics 08/22/23 Loretta Leon PA-C [address] [place] [address] Pulmonary and Critical Care Medicine 11/24/23 Rebecca Jansen APRN.BACK TENDER PAPER MACHINE [address] [place] [address] [phone] Statistician Theoretical [facility] 08/24/24 Leslye Winter PA-C [address] [place] [address] [facility] 08/24/24 Front Office Specialist Relationship Specialty Start Date End Date Ovidio Vincent MD [address] [place] [address] PCP - General Family Medicine 03/16/21 Becky Leija MD [address] [place], [place] 897241 Physician Radiation Oncology 11/24/17 KrissyTato MD [address] [place] [address] Pain Management Anesthesiology 01/30/18 Santos Woods MD [address] [place] [address] Physician Blood and Marrow Transplant 05/04/18 Fidel De La Garza MD [address] [place] [address] Consulting Hematology/Oncology 05/15/18 Halima [place] (Rn), [place] [address] [place] [address] Specialty Plastics Heat Welder Hospice & Palliative Medicine 05/15/18 Nancie Low, ALICIA [address] [place], [place] 671551 Specialty Plastics Heat Welder Hematology/Oncology 04/26/22 Murray Mooney MD [address] [place] [address] Hematology/Oncology 05/03/23 Leno Márquez MD [address] [phone] Orthopedics 08/22/23 Loretta Leon PA-C [address]21 [place] [address] Pulmonary and Critical Care Medicine 11/24/23 Rebecca Jansen APRN.BACK TENDER PAPER MACHINE [address] [place], [place] 620365 [phone] Statistician Theoretical Family [facility] 08/24/24 Leslye Winter PA-C [address] [place], [place] 816388 [phone] Statistician Theoretical [facility] 08/24/24 Front Office Specialist Relationship Specialty Start Date End Date Ovidio Vincent MD [address] [place], [place] 01344935 [phone] PCP - General Family Medicine 03/16/21 Becky Leija MD [address] [place], [place] [phone] Physician Radiation Oncology 11/24/17 Tato Castro MD [address] [place], [place] [phone] Pain Management Anesthesiology 01/30/18 Santos Woods MD 9500 [facility] [place] [address] [place] [address] Physician Blood and Marrow Transplant 05/04/18 Fidel De La Garza MD [address] [facility] [place] [address] Consulting Hematology/Oncology 05/15/18 Halima [place] ([place]), [place] [address] [place], [place] 7685306 Specialty Plastics Heat Welder Hospice & Palliative Medicine 05/15/18 Nancie Low RN [address] [place] [address] Specialty Plastics Heat Welder Hematology/Oncology 04/26/22 Murray Mooney MD [address] [place], [place] [phone] Hematology/Oncology 05/03/23 Leno Márquez MD [address] [phone] Orthopedics 08/22/23 Loretta Leon PA-C [address] [place], [place] 46696691 Pulmonary and Critical Care Medicine 11/24/23 Rebecca Jansen APRN.BACK TENDER PAPER MACHINE [address] [place], [place] [phone] Statistician Theoretical [facility] 08/24/24 Leslye Winter PA-C [address] [place], [place] 916511 [facility] 08/24/24 Front Office Specialist Relationship Specialty Start Date End Date Ovidio Vincent MD [address] [place], [place] [id number] PCP - General Family Medicine 03/16/21 Becky Leija MD [address] [place], [place] [id number] Physician Radiation Oncology 11/24/17 Tato Castro MD [address] [place] [address] [id number] Pain Management Anesthesiology 01/30/18 Santos Woods MD [address] [facility] [address] [place] [address] Physician Blood and Marrow Transplant 05/04/18 Fidel De La Garza MD [address] [facility] [place] [address] Consulting Hematology/Oncology 05/15/18 Halima Cohen (Rn), [place] [address] [place], [place] [phone] Specialty Plastics [facility] 05/15/18 Nancie Low, ALICIA [address] [place], [place] [phone] Specialty Plastics Heat Welder Hematology/Oncology 04/26/22 Murray Mooney MD [address] [facility] [place], [place] [phone] Hematology/Oncology 05/03/23 Leno Márquez MD [address] [id number] Orthopedics 08/22/23 Loretta Leon PA-C [address] [place], [place] [address] Pulmonary and Critical Care Medicine 11/24/23 Rebecca Jansen APRN.BACK TENDER PAPER MACHINE [address] [place], [place] [phone] Statistician Theoretical [facility] 08/24/24 Leslye Winter PA-C [address] [place], [place] [phone] [facility]24 Front Office Specialist Relationship Specialty Start Date End Date Ovidio Vincent MD [address] [place], [place] [id number] PCP - General Family Medicine 03/16/21 Becky Leija MD [address] [place], [place] [address] Physician Radiation Oncology 11/24/17 Tato Castro MD [address] [place] [address] [id number] Pain Management Anesthesiology 01/30/18 Santos Woods MD [address] [address] Physician Blood and Marrow Transplant 05/04/18 Fidel De La Garza MD [address] [place], [place] [phone] Consulting Hematology/Oncology 05/15/18 Halima [place] ([place]), [place] [address] [place] [address] Specialty Plastics Heat [facility]der [facility] & [facility] 05/15/18 Nancie Low, ALICIA [address] [facility] [address] Specialty Plastics Heat Welder Hematology/Oncology 04/26/22 Murray Mooney MD [address] [facility] [place] [place] [place] [address] Hematology/Oncology 05/03/23 Leno Márquez MD [address] [phone] Orthopedics 08/22/23 Loretta Leon PA-C [address] [facility], [place] [id number] Pulmonary and Critical Care Medicine 11/24/23 Leslye Winter PA-C [address] [facility], [place] 354131 Statistician Theoretical [facility] 08/24/24 Team Status: Active Member [...] February 17, 2025 End: February 17, 2025 Front Office Specialist Relationship Specialty Start Date End Date vOidio Vincent MD [address] [place], [place] [id number] PCP - General Family Medicine 03/16/21 Becky Leija MD [address] [place], [place] [phone] Physician Radiation Oncology 11/24/17 Tato Castro MD [address] [place] [address] [id number] Pain Management Anesthesiology 01/30/18 Santos Woods MD [address] [place] [address] Physician Blood and Marrow Transplant 05/04/18 Fidel De La Garza MD [address] [place] [address] Consulting Hematology/Oncology 05/15/18 Halima [place] ([place]), [place] [address] [place] [address] Specialty Plastics Heat [facility] 05/15/18 Nancie Low, ALICIA [address] [place], [place] [phone] Specialty Plastics Heat Welder Hematology/Oncology 04/26/22 Murray Mooney MD [address] [place], [place] [phone] Hematology/Oncology 05/03/23 Leno Márquez MD [address] [phone] Orthopedics 08/22/23 Loretta Leon PA-C [address] [place], [place] [phone] Pulmonary and Critical Care Medicine 11/24/23 Rebecca Jansen APRN.BACK TENDER PAPER MACHINE [address] [place], [place] [phone] [facility] 02/17/25 Leslye Winter PA-C [address] [place], [place] [phone] [facility] 02/17/25 Team Status: Inactive Member Role Status Dates Dr. Ovidio Vincent MD Primary Care Provider Active Start: February 21, 2025 End: February 21, 2025 Dr. Ovidio Vincent MD Referring Provider Active Start: February 21, 2025 End: February 21, 2025 Dr. Caio Gomez MD Attending Provider Active Start: February 21, 2025 End: February 21, 2025 Team Status: Inactive Member Role Status Dates Dr. Ovidio Vincent MD Primary Care Provider Active Start: February 26, 2025 End: February 26, 2025 Dr. Patsy Gamble MD Attending Provider Active Start: February 26, 2025 End: February 26, 2025 Dr. Patsy Gamble MD Referring Provider Active Start: February 26, 2025 End: February 26, 2025 Team Status: Active Member Role Status Dates Dr. Ovidio Vincent MD Primary Care Provider Active Start: February 26, 2025 Dr. Patsy Gamble MD Attending Provider Active Start: February 26, 2025 Team Status: Active Member Role Status Dates Dr. Ovidio Vincent MD Primary Care Provider Active Start: March 04, 2025 Dr. Caio Gomez MD Attending Provider Active Start: March 04, 2025 Team Status: Active Member Role Status Dates Dr. Ovidio Vincent MD Primary Care Provider Active Start: March 04, 2025 Dr. Caio Gomez MD Attending Provider Active Start: March 04, 2025 Dr. Caio Gomez MD Other Provider Active Star t: March 04, 2025 Team Status: Inactive Member Role Status Dates Dr. Ovidio Vincent MD Primary Care Provider Active Start: March 04, 2025 End: March 04, 2025 Dr. Caio Gomez MD Attending Provider Active Start: March 04, 2025 End: March 04, 2025 Front Office Specialist Relationship Specialty Start Date End Date Ovidio Vincent MD [address] [place] [address] PCP - General Family Medicine 03/16/21 Becky Leija MD [address] [place] [address] Physician Radiation Oncology 11/24/17 Tato Castro MD [address] [place] [address] Pain Management Anesthesiology 01/30/18 Santos Woods MD [address] [place] [address] Physician Blood and Marrow Transplant 05/04/18 Fidel De La Garza MD [address] [place] [place], [place] [phone] Consulting Hematology/Oncology 05/15/18 Halima [place] ([place]), [place] [address] [place] [address] Specialty Plastics Heat Welder Hospice & Palliative Medicine 05/15/18 Nancie Low, ALICIA [address] [place], [place] [address] Specialty Plastics Heat Welder Hematology/Oncology 04/26/22 Murray Mooney MD [address] [place], [place] [address] Hematology/Oncology 05/03/23 Leno Márquez MD [address] [phone] Orthopedics 08/22/23 Loretta Leon PA-C [address] [place], [place] 225131 Pulmonary and Critical Care Medicine 11/24/23 Rebecca Jansen APRN.BACK TENDER PAPER MACHINE [address] [place], [place] [phone] Statistician Theoretical Family [facility] 02/17/25 Leslye Winter PA-C [address] [place], [place] [address] [facility] 02/17/25 Goals (unrecognized section and content) Goals may [...] section and content) DATE CREATED AUTHOR 11/03/2022 [facility] DATE CREATED AUTHOR AUTHOR'S ORGANIZ ATION 03/09/2025 [facility] DATE CREATED AUTHOR AUTHOR'S ORGANIZ ATION 03/13/2025 [facility] FOR RECORDS PERTAINING TO PATIENTS WHO ARE [...] BE BASED ON THE PRIMARY CLINICAL RECORDS. [facility] [employer] provides no warranty or guarantee of the accuracy or completeness of information in this document.
--- NOTE | 2025-03-14 06:30 | RAD_ITS ---
EXAM: XR Lumbosacral Spine, 2 or 3 Views CLINICAL INDICATION: SPINAL CORD STIM PLACEMENT TECHNIQUE: Frontal and lateral views of the lumbar spine and sacrum. COMPARISON: No relevant prior studies available. FINDINGS: VERTEBRAE: Unremarkable. No acute fracture. Normal alignment. SACRUM/COCCYX: Unremarkable as visualized. No acute fracture. DISC SPACES: No acute findings. No significant narrowing. SOFT TISSUES: Unremarkable. OTHER FINDINGS: Fluoroscopic guidance was used intraoperatively. 2 fluoroscopic images were obtained. Total fluoroscopy time 24 seconds. Total radiation dose 0.79 mGy. RAD/Lumbar Spine 2 or 3 Views IMPRESSION: Fluoroscopic guidance was used intraoperatively. Please refer to the operative note for further details. Reading Location: [id number]
[2025-03-14] MEDS: Magnesium 2 GM for ERAS IV (06:35)
[2025-03-14] MEDS: Lactated Ringers 1,000 ML 15 ML IV (06:35)
--- NOTE | 2025-03-14 06:35 | PRE.ANES_ITS ---
ASA Classification* ASA Classification ASA Classification: 3 Assessment & Plan Anesthesia* Anesthesia Assessment Anesthesia Assessment: Discussed sedation and/or anesthesia options, risks, benefits, and alternatives with patient/parents/legal guardian/POA. Questions invited. The patient/parents/legal guardian/POA seems to understand and agrees to proceed with anesthesia plan. Reviewed the physical assessment, medical history, allergy history and patient home medications list prior to surgery/procedure/anesthetic and documented any changes. Performed airway and anesthesia risk assessments. Anesthesia Type Anesthesia Type: MAC (VS GA/ ETT, Dr. Gomez to decide) History Source History Obtained from:: Patient and Chart Anesthesia Focused Assessment* Temperature: 97.3 F Pulse Rate: 41 Blood Pressure: 121/70 Respiratory Rate: 20 Pulse Ox: 100 Oxygen Delivery Method: Room Air Oxygen Flow Rate (L/min): 0 Airway Assessment Mouth opens: >3 cm Mallampati Score: II Teeth Condition: Intact Neck Range of motion (ROM): Full ROM Labs Anesthesia Preop lab: CBC WBC 5.7 K/mm3 (4.4-11.0) 02/17/25 11:42 02/17/25 RBC 5.11 M/mm3 (4.6-6.2) 02/17/25 11:42 02/17/25 Hgb 14.4 g/dL (13.0-16.5) 02/17/25 11:42 02/17/25 Hct 44.3 % (40-54) 02/17/25 11:42 02/17/25 Plt Count 168 K/mm3 (150-450) 02/17/25 11:42 02/17/25 CHEMISTRY Potassium 4.4 mmol/L (3.3-5.1) 02/17/25 11:42 02/17/25 Sodium 137 mmol/L (133-145) 02/17/25 11:42 02/17/25 Magnesium 1.8 mg/dL (1.5-2.2) 02/17/25 11:42 02/17/25 BUN 22 mg/dL (4-19) H 02/17/25 11:42 02/17/25 Creatinine 1.17 mg/dL (0.70-1.20) 02/17/25 11:42 02/17/25 Glucose 129 mg/dL (70-99) H 02/17/25 11:42 02/17/25 POC Glucose 103 mg/dL (74-106) 03/04/25 11:32 03/04/25 TSH 3.03 uIU/mL (0.358-3.74) 05/02/23 10:36 COAG Pre-Assessment Diagnosis/Proposed Procedure Planned Operative Procedure(s): Spinal cord stimulator pulse generator implantation Anesthesia History 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 When Was Last Pacemaker Check QUESTION #4 FULL TEXT: You/Your Family Experience fever (hyperthermia) with Anesthesia Any additional information?: No Last Oral Intake Last Oral intake: Last Oral Intake NPO since Meds taken in AM with sips of water? Meds patient instructed to take am of surgery Any additional information?: Yes NPO since: 19:00 Meds taken in AM with sips of water?: No PONV PONV - visual merchandising associate: PONV - visual merchandising associate Female No 02/05/25 09:39 HX of Motion Sickness No 02/05/25 09:39 HX of N/V After Surgery No 02/05/25 09:39 Non-Smoker Yes 02/05/25 09:39 Duration of Surgery greater No 02/05/25 09:39 than 60 minutes Number of Risk Factors 1 02/05/25 09:39 PONV Score Low Risk 02/05/25 09:39 Any additional information?: No Height & Weight Height & Weight: Anesthesia: Height & Weight Height 5 ft 10 in 03/04/25 06:14 Respiratory Assessment Respiratory Assessment - visual merchandising associate: Respiratory Tract Infection Hx - visual merchandising associate Hx Respiratory Tract Infection No 02/05/25 09:39 Any additional information?: No STOP Sleep Apnea STOP Sleep Apnea - visual merchandising associate: STOP Sleep Apnea - visual merchandising associate Hx Hypertension Yes: CONTROLLED ON MED 02/05/25 09:39 Hx Sleep Apnea No 03/04/25 12:14 CPAP BIPAP Do you snore loudly (louder No 02/05/25 09:39 than talking or can be heard Do you often feel tired/ No 02/05/25 09:39 fatigued/ sleepy during daytime? Has anyone observed you stop No 02/05/25 09:39 breathing during sleep? STOP Results Negative 02/05/25 09:39 QUESTION #5 FULL TEXT : Do you snore loudly (louder than talking or can be heard through closed doors)? 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 Specify any problems Hx of Preganancy in last 3 N/A 02/05/25 09:39 Months Nurse Filling Out Transfusion VCHRISTIN 02/05/25 09:39 & Questions: Date: 02/05/25 02/05/25 09:39 Time: 09:39 02/05/25 09:39 Patient unable to answer at this time (ie. confused, unrespo Any additional information?: No /Reproduction History /Reproductive History - visual merchandising associate: /Reproductive Hx- visual merchandising associate Hx Now Gestational Age (in weeks): EDC: Hx Hx Para Hx Section SAB No 02/05/25 09:39 Any additional information?: No Active Medications Active Medications: Current Medications Generic Name Dose Route Start Last Admin Trade Name Freq PRN Reason Stop Dose Admin Acetaminophen 1,000 mg 03/14/25 07:30 Acetaminophen 500 Mg Tablet PO 03/14/25 07:31 PREOP ONE Tranexamic Acid 1,000 mg/ 110 mls @ 440 mls/hr 03/14/25 07:30 Sodium Chloride IV 03/14/25 07:44 INTRAOP ONE Tranexamic Acid 1,000 mg/ 110 mls @ 440 mls/hr 03/14/25 08:30 Sodium Chloride IV 03/14/25 08:44 INTRAOP ONE Magnesium Sulfate 2 gm/ 104 mls @ 208 mls/hr 03/14/25 07:30 Dextrose IV 03/14/25 07:59 INTRAOP ONE Lactated Ringer's 1,000 mls @ 15 mls/hr 03/14/25 06:15 IV .Q48H DAVID Insulin Human Lispro 1 - 6 unit 03/14/25 07:30 Insulin Lispro 100 Unit/Ml Insuln.Pen SC Q4H PRN PRN BG>/= 180, SEE PROTOCOL Protocol PFSH Medical History Pre-op testing Wears hearing aid Wears glasses Cancer Multiple myeloma History of steroid therapy Ambulates with cane High cholesterol Back pain Injury of back Injury of head and neck Gastric reflux Former smoker History of edema History of stress test History of echocardiogram History of Holter monitoring Cardiology follow-up encounter Joint infection of right wrist DVT of lower extremity, bilateral Abnormal ECG Paroxysmal atrial fibrillation Essential hypertension History of multiple myeloma GERD (gastroesophageal reflux disease) Rheumatoid arthritis Osteoarthritis Diabetes mellitus COPD (chronic obstructive pulmonary disease) Hyperlipidemia Debility Thoracic spinal stenosis Bone tumor Home Medications ?Medication ?Instructions ?Recorded ?Last Taken ?Type aspirin 81 mg tablet,delayed 81 mg PO DAILY Heart 12/1803/13/25 History release calcium carb-ergocalciferol (vit 200 tab PO DAILY Supp lment 01/05/23 03/13/25 History D2) 600 mg calcium-200 unit tablet cholecalciferol (vitamin D3) 50 50 mcg PO DAILY Supple ment 01/05/23 03/13/25 History mcg (2,000 unit) tablet cyanocobalamin (vitamin B-12) 1,000 mcg PO DAILY Suppl ement 01/05/23 03/13/25 History 1,000 mcg capsule losartan 25 mg tablet 12.5 mg PO DAILY BP 01/05/23 03/13/25 History metformin 1,000 mg tablet 1,000 mg PO BID DM 01/05/23 03/13/25 History multivitamin 1 tab PO DAILY Supplement 03/13/25 History omeprazole 40 mg capsule,delayed 40 mg PO DAILY GERD 0 01/05/23 03/13/25 History release dapagliflozin propanediol 10 mg 10 mg PO DAILY 3 03/13/25 History tablet (Farxiga) fluticasone fur. 100 mcg-umeclid 1 inh inhalation SUSHIL Y 05/02/23 03/03/25 08:30 History 62.5 mcg-vilant 25 mcg inhalat.powder (Trelegy Ellipta) torsemide 20 mg tablet 20 mg PO DAILY 08/17/2302/17 History atorvastatin 40 mg tablet 40 mg PO QDAY 03/06/2403/13 History magnesium oxide 250 mg PO BID 08/08/2403/13 History carvedilol 12.5 mg tablet 12.5 mg PO BID #180 tabs 01/1003/13/25 Rx dulaglutide 3 mg/0.5 mL 3 mg subcut QWEEK 02/04/25 0 03/11/25 [facility] meloxicam 15 mg tablet 15 mg PO DAILY #30 tabs 02/1603/13/25 Rx methocarbamol 500 mg tablet 500 - 750 mg (1 - 1.5 x 50 0 mg) PO 03/04/25 03/13/25 Rx TID PRN pain/spasms #30 tabs sennosides 8.6 mg capsule (senna) 8.6 mg PO BID PRN co nstipation #30 03/04/25 Unknown Rx caps cephalexin 500 mg capsule 500 mg PO BID #14 caps 03/1103/13/25 Rx Allergy/AdvReac Type Severity Reaction Status Date / Time No Known Allergies Allergy Verified 03/14/25 06:32 Family History Father Cancer, Onset Age: 52 Pancreatic cancer. Diabetes Sister Diabetes Grandmother Diabetes Surgical History Hx of bilateral cataract extraction Hx of eye surgery History of total left knee replacement (TKR) (~08/2023) History of tonsillectomy History of laminectomy History of carpal tunnel surgery of right wrist History of esophagogastroduodenoscopy History of colonoscopy History of bone marrow transplant History of total right knee replacement (TKR) History of reverse total replacement of right shoulder joint History of lumbar fusion Hx of fusion of cervical spine Social History household members: spouse Smoking Status: Former smoker quit date: 09/18/12 alcohol intake: current alcohol intake frequency: a few times a month substance use type: does not use caffeine: Yes Type: coffee Number of servings: 3 Addt'l Information Additional Findings: EKG Perinent findings: March 06, 2024. Sinus rhythm. Stress test pertinent findings: February 26, 2025. No ischemic changes on stress test. Occasional PVC. EF is 76%. Echo (EF%) pertinent findings: May 29, 2023. Mild LVH. EF is 70%. No aortic stenosis. Consult pertinent findings: February 17, 2025. Preoperative cardiovascular exam. Check stress test. If no significant abnormalities, patient may proceed with surgery. (See above) Additional pertinent findings: 48-hour Holter. August 21, 2024. Average heart rate was 72 bpm and normal sinus rhythm. PVC burden was 3.8%. PACs were 0.8%. No atrial fibrillation. No symptoms recorded in 48-hour diary. Review of Systems (Anesthesia) ROS Narrative System reviewed and no additional complaints, except as documented.
[2025-03-14] MEDS: Acetaminophen 500 MG Tablet 1000 MG PO ×2 (06:51→07:30)
--- NOTE | 2025-03-14 06:53 | EKG12_ITS ---
Test Reason : PRE OP Blood Pressure : */* mmHG Vent. Rate : 41 BPM Atrial Rate : 41 BPM P-R Int : 134 ms QRS Dur : 114 ms QT Int : 478 ms P-R-T Axes : 12 7 42 degrees QTcB Int : 394 ms Marked sinus bradycardia with Premature atrial complexes Abnormal ECG When compared with ECG of 22-Mar-2023 16:41, Vent. rate has decreased by 50 bpm QRS duration has increased QT has shortened Confirmed by ROBERT JOHNSON, LOUIE ([id number]), film and video editor JOSE RAMON WALDRON ([id number]) on 03/18/2025 6:49:36 AM Referred By: Will Gomez Confirmed By: LOUIE JONES MD
--- NOTE | 2025-03-14 07:30 | PCM.HP.BLA ---
History and Physical MR#: [id number] Acct: [id number] Name: RONNIE YARBROUGH Rep #: [id number] : 1950 Provider: Dr. Will Gomez MD Age/Sex: 74/M Location: [facility] [place] Status: Signed Intake Vital Signs 12/05/2509:30 02/18/2508:16 02/21/2509:53 Height 5 ft 9 in 5 ft 9 in 5 ft 9 in Weight: 214 lb 214 lb BMI 31.6 31.6 BP 101/57 L Blood Pressure Location Lt brachial Position Sitting Respiration 18 Pulse 66 Pulse Source Palpation Intake Visit Reasons: back pain Chief Complaint: Pre op Accompanied by: Is patient in pain?: Yes Pain scale (1-10): 9 Allergies No Known Allergies Allergy (Verified 02/21/25 09:58) Medications ?Medication ?Instructions ?Recorded ?Confirmed ?Type aspirin 81 mg tablet,delayed 81 mg PO DAILY Heart 01/05/23 02/21/25 History release calcium carb-ergocalciferol (vit 200 tab PO DAILY Supplment 01/05/23 02/21/25 History D2) 600 mg calcium-200 unit tablet cholecalciferol (vitamin D3) 50 50 mcg PO DAILY Supplement 01/05/23 02/21/25 History mcg (2,000 unit) tablet cyanocobalamin (vitamin B-12) 1,000 mcg PO DAILY Supplement 01/05/23 02/21/25 History 1,000 mcg capsule losartan 25 mg tablet 12.5 mg PO DAILY BP 01/05/23 02/21/25 History metformin 1,000 mg tablet 1,000 mg PO BID DM 01/05/23 02/21/25 History multivitamin 1 tab PO DAILY Supplement 01/05/23 02/21/25 History omeprazole 40 mg capsule,delayed 40 mg PO DAILY GERD 01/05/23 02/21/25 History release dapagliflozin propanediol 10 mg 10 mg PO DAILY 05/02/23 02/21/25 History tablet (Farxiga) fluticasone fur. 100 mcg-umeclid 1 inh inhalation DAILY 05/02/23 02/21/25 History 62.5 mcg-vilant 25 mcg inhalat.powder (Trelegy Ellipta) torsemide 20 mg tablet 20 mg PO DAILY 08/17/23 02/21/25 History atorvastatin 40 mg tablet 40 mg PO QDAY 03/06/24 02/21/25 History terbinafine HCl 250 mg tablet 250 mg PO DAILY Antifungal 03/06/24 02/21/25 History magnesium oxide 250 mg PO BID 08/08/24 02/21/25 History oxycodone 5 mg tablet 5 mg PO TID PRN pain 12/05/24 02/21/25 History carvedilol 12.5 mg tablet 12.5 mg PO BID #180 tabs 12/20/24 02/21/25 Rx dulaglutide 3 mg/0.5 mL 3 mg subcut QWEEK 02/04/25 02/21/25 History subcutaneous pen injector (Trulicity) Have you fallen in the past year?: No PFSH Medical History Pre-op testing Wears hearing aid Wears glasses Cancer Multiple myeloma History of steroid therapy Ambulates with cane High cholesterol Back pain Injury of back Injury of head and neck Gastric reflux Former smoker History of edema History of stress test History of echocardiogram History of Holter monitoring Cardiology follow-up encounter Joint infection of right wrist DVT of lower extremity, bilateral Abnormal ECG Paroxysmal atrial fibrillation Essential hypertension History of multiple myeloma GERD (gastroesophageal reflux disease) Rheumatoid arthritis Osteoarthritis Diabetes mellitus COPD (chronic obstructive pulmonary disease) Hyperlipidemia Debility Thoracic spinal stenosis Bone tumor Surgical History Hx of bilateral cataract extraction Hx of eye surgery History of total left knee replacement (TKR) (~08/2023) History of tonsillectomy History of laminectomy History of carpal tunnel surgery of right wrist History of esophagogastroduodenoscopy History of colonoscopy History of bone marrow transplant History of total right knee replacement (TKR) History of reverse total replacement of right shoulder joint History of lumbar fusion Hx of fusion of cervical spine Family History Father Cancer, Onset Age: 52 Pancreatic cancer. DiabetesSister DiabetesGrandmother Diabetes Social History household members: spouse Smoking Status: Former smoker quit date: 09/18/12 alcohol intake: current alcohol intake frequency: a few times a month substance use type: does not use caffeine: Yes Type: coffee Number of servings: 3 HPI back pain Details: Patient is here for second stage after the paddle trial. He has had more than 80% improvement with the trial. Denies any wound issues. HPI from 01/02/25: RONNIE YARBROUGH is a 74 year old M here today for MRI review of the lumbar spine.Patient denies any changes. 12/05/24: RONNIE YARBROUGH is a 74 year old M NEW patient here today for low back pain. Patient was referred by Dr. Paul pain management. He states that he has been having pain for 15-20 years and it has progressively gotten worse over time. He states that he has had multiple injections and about [address] Paul tried to go in and give him an implant for a pain stimulator but states that it didn't work which was why he referred him to us. He states Dr. Paul was unable to get the leads in during the procedure.He has had 3-4 previous surgeries on his lower back that were done at [facility]. His last back surgery was about 3 years ago and he had an MRI after that surgery that showed compression and a fracture. He is unable to recall the exact dates and what surgeries were done.Patient denies radicular symptoms. Denies numbness, tingling or other associated symptoms. Patient denies having leg weakness but does have some issues with his balance. He has been having balance issues for 3-4 years which has worsened some and he uses a cane to ambulate. He has done PT in the past for before and after his surgeries but is unable to recall how long ago. He does take Oxycodone 5mg for pain 3 times a day that is prescribed to him by Dr. Paul. Patient is going on a mission trip and will be gone for about 7 weeks. He denies numbness and tingling into his hands and does not trop items while holding them. Ortho Exam General General: Yes no acute distress Neurologic: Yes alert Psychologic: Yes reasonable and appropriate Spine SPINE TESTING CERVICAL THORACIC LUMBAR Musculoskeletal Strength 0=absent - 5=normal Details: Examination the back shows midline incision scar throughout the lumbar spine but possibly also going to the lower thoracic spine. There is midline paraspinal tenderness in the lower back. Neurologic evaluation of lower extremity shows 5 x 5 power normal shows normal sensations in all dermatomes. Knee reflexes are 2+. Patient has significant balance issues and had a tough time getting up to exam table.. Romberg's and tandem gait could not be tested. Dressing CDI. 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 X-rays show L2-S1 posterior spinal fusion instrumented with good healing. There are postsurgical changes of laminectomy in the T11-12 segment . Lumbar degenerative scoliosis noticed. T12 wedging noticed. No dynamic instability but significant thoracolumbar kyphosis. T12 appears to be an old healed fracture without significant T2 hyperintensity. No cord compression noticed in the recent MRI throughout the thoracic spine. Patient has undergone paddle lead trial placement of spinal cord stimulator to help with the pain as recommended by his pain physician. He has had more than 80% improvement with the trial. He is here for placement of permanent pulse generator and reconnection of leads. Reviewed the benefits and risks of surgery. Risks of surgery include bleeding, infection, hematoma, DVT, pulmonary embolism, persistent pain. Patient understands and agrees to proceed with surgery. Explained in detail the procedure . Discussed post surgery restrictions such as no bending, lifting, or twisting. Answered all questions that he had today in preparation for surgery. Consent was signed. Patient is in agreement.
[2025-03-14] MEDS: TRANEXAMIC ACID 1,000 MG in 0.9% Normal Saline (100mL Bag) 100 ML 440 MG IV ×2 (07:42→08:50)
[2025-03-14 08:06] LABS: Bedside Glucose 113 mg/dL (74-106)
[2025-03-14] MEDS: Bupivacaine 0.25% 30 ML Vial (09:08)
--- NOTE | 2025-03-14 09:23 | PCM.POST.ANE ---
Anesthesia: Postop Eval I Current Vital Signs Temperature: 98 F Pulse Rate: 45 Blood Pressure: 105/77 Respiratory Rate: 16 Pulse Ox: 96 Assessment Airway patent: Yes Spontaneous unlabored respirations: Yes nausea: No Vomiting: No Anesthesia Complication: No Fluid Hydration Crystalloid volume administer (ml): 900 Total IV fluid infused: 900 Progress Note Anesthesia document: Postop Eval 1 completed: Yes
[2025-03-14] MEDS: HYDROcodone Bitartrate/Apap 5/325 Tablet PO (10:24)
--- NOTE | 2025-03-14 12:21 | OP.PCM_ITS ---
Procedures Musculoskeletal 20xxx-29xxx: Other Procedure See Report Operative Report (Standard) Operative Information Date of Procedure: 03/14/25 Pre-Operative Diagnosis: Status post SCS paddle trial, chronic back pain Post-Operative Diagnosis: Same Surgery/Procedure Performed: Irrigation debridement of thoracic wound, pulse generator placement commission auditor: Yes Bank Compliance Officer: Tra Borrego Tasks completed by cutting table operator first: Closing, Implanting device and Retracting Type of Anesthesia: General RN Documented Start/Stop Times: Operation Date: 03/14/25 07:30 Case Time Into Pre-Op 03/14/25 06:06 Out of Pre-Op 03/14/25 07:37 Anesthesia Start 03/14/25 07:42 Into Room 03/14/25 07:42 Procedure Start 03/14/25 08:10 Procedure End 03/14/25 09:14 Anesthesia End 03/14/25 09:18 Out of Room 03/14/25 09:18 Into Recovery 03/14/25 09:20 Out of Recovery 03/14/25 10:02 Into Phase II Recovery 03/14/25 10:03 Out of Phase II 03/14/25 10:56 Procedure Start Time: 08:10 Procedure Stop Time: 09:14 Select all DRAINS/GRAFTS/IMPLANTS that apply: Implanted device Implanted device details: Medtronic SCS pulse generator Estimated Blood Loss: 20 cc Specimen collected: Yes Description of specimen(s) removed: Superficial deep culture of thoracic posterior wound Description of surgery: Preoperative diagnosis: Chronic back pain with successful spinal cord stimulator paddle lead trial Postoperative diagnosis: Same Name of procedure: Irrigation debridement of midline thoracic posterior wound and placement of implantable pulse generator placement in left gluteal region, CPT code 56104 Anesthesia: Gen. endotracheal Estimated blood loss: 30 mL Complications: None Instrumentation used: Medtronic d and Eterna implantable pulse generator. Indications: The patient is a pleasant 74-year-old gentleman who presented to us with symptoms of chronic low back pain. He was treated with a spinal cord stimulator paddle trial 10 days ago and had excellent pain relief of more than 80%. Patient consented for permanent implantable pulse generator placement. All risks and benefits of the procedure were explained to the patient. The risks include but are not limited to infection, bleeding, injury to nerves and vessels, need for further procedures, worsening lumbar pathology with potential neurologic symptoms, persistent pain, technical issues with spinal cord stimulator, hematoma, migration of lead, skin impingement from subcutaneous pulse generator, worsening deformity, DVT, pulmonary embolism, cardiopulmonary event etc. patient understands all the risks and benefits and agrees to the procedure. Procedure: The patient was identified in the preoperative suite using unique patient identifiers. Skin was marked consent was taken and all questions were answered. The patient was then brought back to the operative room and a timeout was performed. MAC anesthesia was given. The patient was carefully positioned prone on a standard OR table over pillows. Back was prepped and draped in usual fashion. The trial lead wires coming out of the left paraspinal region were draped out into the unstable portion of the field. The wires were taped down to be accessible outside of the prepped area. A posterior midline incision was opened by taking of the fidel in the subcutaneous Vicryl sutures. Healing granulation tissue was noticed which felt not completely healthy. Deep fascial closure was also opened as there felt to be a communication of granulation tissue. Left paraspinal subcutaneous pocket was exposed. The trial lead wires were then cut pulled out of the incision. Due to the unhealthy granulation tissue, culture swabs were taken in the subcutaneous left-sided pocket as well as the deeper tissues. thorough irrigation of the midline thoracic incision including deeper tissues was then performed. Irrisept was kept in the wound for a total of 1 minute. C arm AP view was used to confirm that the paddle lead is in good position. Tunneling instrument was used to create a subcutaneous tunnel from a transverse incision placed in the left gluteal region. This allowed the leads to be passed and tunneled through into the lower wound. These leads were then connected to the implantable pulse generator (IPG). The leads were tested again to confirm stimulation. The IPG was then implanted into a subcutaneous pocket less than 2 cm from the surface in the left gluteal region. Thorough irrigation was given in both wounds. Hemostasis was achieved. Closure o f the midline thoracic wound was done in layers with 0 PDS interrupted for the deep fascia, 2-0 PDS for subcutaneous tissue and fidel for skin. The left gluteal incision was closed with the help of 0 PDS for deeper adipose tissue and 2-0 Vicryl for subcutaneous tissue and 4-0 Monocryl for the skin. dressed with 4 x 4 gauze and Tegaderm. the patient was then woken up from anesthesia. Patient was taken to PACU for monitoring in stable condition. The patient tolerated the procedure and no complications occurred. Blood loss was 30 ml. Medtronic SCS instrumentation was utilized. I was scrubbed for the entire procedure and performed the surgery myself. Surgical Findings: See operative note Complications Complications: No
--- NOTE | 2025-03-17 09:56 | POSTOPAN2_ITS ---
Anesthesia Postop Eval I Sum Postop Eval Completion status Anesthesia document: Postop Eval 1 completed: Yes Anesthesia Postop Eval I Summary Anesthesia Postop Eval I Summary: Anesthesia Postop Eval I: Assessment Summary Airway patent Yes 03/14/25 09:23 CELL [email or web address] Spontaneous unlabored Yes 03/14/25 09:23 CELL [email or web address].ACAR respirations Mental status nausea No 03/14/25 09:23 CELL [email or web address].ACAR Vomiting No 03/14/25 09:23 CELL [email or web address].ACAR Anesthesia Postop Eval I: Fluid Summary Crystalloid volume administer 900 03/14/25 09:23 CELL [email or web address] (ml) Colloids volume administered ( ml) Blood Product volume administered (ml) Total IV fluid infused 900 03/14/25 09:23 CELL [email or web address].ACAR Anesthesia Postop Eval I: Summary Notes Anesthesia Complication No 03/14/25 09:23 CELL [email or web address].ACAR Anesthesia Complication Comment: Post-operative progress note Anesthesia: Postop Eval II Evaluation Mental status: Awake and Calm Pain Level: 1 nausea: No Vomiting: No Complications Anesthesia Complication: No
--- NOTE | 2025-03-17 09:56 | PCM.POSTANE2 ---
Anesthesia Postop Eval I Sum Postop Eval Completion status Anesthesia document: Postop Eval 1 completed: Yes Anesthesia Postop Eval I Summary Anesthesia Postop Eval I Summary: Anesthesia Postop Eval I: Assessment Summary Airway patent Yes 03/14/25 09:23 DRAW PRESS [email or web address] Spontaneous unlabored Yes 03/14/25 09:23 DRAW PRESS OPERATOR.ACAR respirations Mental status nausea No 03/14/25 09:23 DRAW PRESS OPERATOR.ACAR Vomiting No 03/14/25 09:23 DRAW PRESS OPERATOR.ACAR Anesthesia Postop Eval I: Fluid Summary Crystalloid volume administer 900 03/14/25 09:23 DRAW PRESS [email or web address].ACAR (ml) Colloids volume administered ( ml) Blood Product volume administered (ml) Total IV fluid infused 900 03/14/25 09:23 DRAW PRESS OPERATOR.ACAR Anesthesia Postop Eval I: Summary Notes Anesthesia Complication No 03/14/25 09:23 DRAW PRESS OPERATOR.ACAR Anesthesia Complication Comment: Post-operative progress note Anesthesia: Postop Eval II Evaluation Mental status: Awake and Calm Pain Level: 1 nausea: No Vomiting: No Complications Anesthesia Complication: No
== END 2025-03-14 10:56 | disposition home or self-care (01) ==
LOC: SDC 05:58 → AC 06:00
PROVIDERS: Anesthesiology; PCP Family Medicine; Referring Provider Orthopaedic Surgery Orthopaedic Surgery of the Spine; Visit Provider Orthopaedic Surgery Orthopaedic Surgery of the Spine
PROC: (CPT 63655; principal; 2025-03-14 07:00)
DX: M96.1 Postlaminectomy syndrome, not elsewhere classified (principal); M06.9 Rheumatoid arthritis, unspecified; J44.9 Chronic obstructive pulmonary disease, unspecified; I48.0 Paroxysmal atrial fibrillation; E11.9 Type 2 diabetes mellitus without complications; M40.15 Other secondary kyphosis, thoracolumbar region; S22.080S Wedge compression fracture of T11-T12 vertebra, sequela; M48.04 Spinal stenosis, thoracic region; G89.29 Other chronic pain; I10 Essential (primary) hypertension; I49.1 Atrial premature depolarization; K21.9 Gastro-esophageal reflux disease without esophagitis; E78.00 Pure hypercholesterolemia, unspecified; Z98.1 Arthrodesis status; Z79.51 Long term (current) use of inhaled steroids; Z79.84 Long term (current) use of oral hypoglycemic drugs; Z79.85 Long-term (current) use of injectable non-insulin antidiabetic drugs; Z79.82 Long term (current) use of aspirin; Z86.718 Personal history of other venous thrombosis and embolism; Z87.891 Personal history of nicotine dependence; Z79.899 Other long term (current) drug therapy; Z96.653 Presence of artificial knee joint, bilateral; Z96.611 Presence of right artificial shoulder joint
CPT/HCPCS: 63685; 00300; 36415; 72100; 76000; 80048; 82962; 83036; 83735; 85025; 86703; 86706; 86708; 86803; 86850; 86900; 86901; 87015; 87070; 87075; 87081; 87102; 87116; 87205; 87206; 93005; J2405